=== PATIENT | male | born 1950 | race Caucasian/White ===

== ENCOUNTER 2017-09-16 19:34 | Emergency (ER) | payer MEDICARE, OTHER, SELFPAY ==
[2017-09-16 19:38] VITALS: BP 155/75; PULSE 67; RESP 18; TEMP 36.7; O2SAT 97; BMI 29.6
[2017-09-16] MEDS: 0.9% Normal Saline 1,000 ML 150 ML IV (20:36)
[2017-09-16] MEDS: Ondansetron 4 MG/2 ML Vial IV (20:36)
[2017-09-16] MEDS: HYDROmorphone 1 MG/ML Syringe IV (20:36)
[2017-09-16 20:42] LABS: Absolute Lymphocyte Count 1.83 X10^3/ul (0.83-4.51); Absolute Neutrophil Count 5.3 X10^3/uL (2.0-7.7); Basophil# 0.01 X10^3/uL; Basophil% 0.1 % (0-1); Eosinophil# 0.09 X10^3/uL; Eosinophils% 1.2 % (0-5); Hematocrit 38.8 % (40-54); Hemoglobin 12.9 g/dl (13.0-16.5); Lymphocyte # 1.83 X10^3/ul (4.0); Lymphocyte % 23.6 % (19-41); Mean Corp Hgb Conc 33.2 g/gl (32-36); Mean Corpuscular Hgb 30.1 pg (27.0-32.0); Mean Corpuscular Volume 90.7 fL (80-94); Mean Platelet Vol. 9.8 fl (6.2-12.0); Monocyte# 0.54 X10^3/uL; Neutrophil # 5.26 X10^3/uL (2.7-7.7); Neutrophil % 67.8 % (47-70); Platelet Count 299 K/mm3 (150-450); RBC Distribution Width CV 13.6 % (11.6-14.6); RBC Distribution Width SD 44.9 fl (35.1-43.9); Red Blood Count 4.28 M/mm3 (4.6-6.2); White Blood Count 7.8 K/mm3 (4.4-11.0)
[2017-09-16 20:45] LABS: POSITIVE COUNT NO; POSITIVE DIFFERENTIAL NO; POSITIVE MORPHOLOGY NO
[2017-09-16 20:55] LABS: Anion Gap 10 (5-15); BUN 17 mg/dL (7-18); BUN/Creat Ratio 18.4 RATIO (10-20); Calcium,Total 9.1 mg/dL (8.5-10.1); Chloride 104 mmol/L (98-107); Creatinine, Serum 0.92 mg/dL (0.70-1.30); EST Glomerular Filtration Rate 87 mL/min (>60); Est Glom Filt Rate - Afr Amer 105 mL/min (>60); Estimated Creatinine Clearance 76.41 ml/min; Glucose 106 mg/dL (74-106); Sodium Level 143 mmol/L (136-145)
--- NOTE | 2017-09-16 21:45 | ED.VISSUMM ---
- ER Visit Summary Date of Service: 09/16/17 Chief Complaint: [Bret herniation] History of Present Illness: The patient is a 67 M [presents to the emergency department with complaint of a fall onto his abdomen causing his stoma to herniate. Patient has had a history of colostomy related to diverticulitis and partial bowel resection. Patient has had problems in the past with the addition of stoma. Patient complains of abdominal pain. Patient denies any fever. He denies any cough.] Physical Examination: [HEENT-PERRLA, EOMI. Cranial nerves II through XII grossly intact. TMs clear. Mucous membranes moist. No adenopathy. Cardiovascular-regular rate and rhythm without murmur or ectopy Lungs-clear to auscultation, chest wall stable without crepitus or subcu emphysema Abdomen-normoactive bowel sounds, soft. Patient does have a colostomy in the lower abdomen with colon herniating centrally. Area slightly tender to palpation. No blood noted. There is stool within the colostomy bag. Extremities-intact ?4, normal range of motion, normal pulses, atraumatic] Test Results: [CBC with differential obtained showed a white blood cell count of 7.8, hemoglobin 12.9, hematocrit 39, platelets 299. Chemistries unremarkable. Emergency Department Course and Treatment: [Patient received a milligram of Dilaudid IV as well as 4 mg Zofran. I was able to reduce the herniated colon and patient had good pain relief. I ordered a CT scan of the abdomen to evaluate further however patient is refusing being that his symptoms are now resolved and is concerned about the financial implications of having a CAT scan. Patient is requesting to be discharged home and states that he will return if symptoms worsen.] Treatment Plan: [Discharged to home and advised to follow-up with the surgeon within next 3-5 days.] Disposition: [Discharged home in stable condition] Impression: [Colostomy prolapse/herniation-reduced] This note was generated with [employer] dictation software. It may contain incorrect words, spelling, and punctuation that were not noted in review of the chart prior to signing ED Disposition - Plan for ED Patient: Chief Complaint: Wound [facility] [[facility] -
--- NOTE | 2017-09-16 21:48 | ED.DEP ---
ED Disposition - Plan for ED Patient: Chief Complaint: Wound Instructions: ED Abdominal Pain Unkn Cause [facility]: [facility] [[facility]] - Additional Instructions: see your surgeon within the next 3-5 days, use your binder, return if worsening pain, prolapse, bloody stool, or condition worsens
[2017-09-16] MEDS: HYDROcodone Bitartrate/Apap 5/325 Tablet PO (22:03)
[2017-09-16 22:09] VITALS: BP 139/80; PULSE 62; RESP 18; O2SAT 96
== END 2017-09-16 22:11 | disposition home or self-care (01) ==
LOC: ED 20:11
PROVIDERS: Emergency Provider Emergency Medicine
DX: K94.09 Other complications of colostomy (principal); Y83.3 Surgical operation with formation of external stoma as the cause of abnormal reaction of the patient, or of later complication, without mention of misadventure at the time of the procedure; I25.10 Atherosclerotic heart disease of native coronary artery without angina pectoris; Z95.1 Presence of aortocoronary bypass graft; Z72.0 Tobacco use
CPT/HCPCS: 80048; 85025; 99285; J7030; J2405

== ENCOUNTER 2017-09-18 11:07 | Emergency (ER) | payer MEDICARE, OTHER, SELFPAY ==
[2017-09-18 11:08] VITALS: BP 141/68; PULSE 87; RESP 20; TEMP 37.2; O2SAT 98; BMI 29.5
[2017-09-18] MEDS: morphine 8 MG/ML Syringe IV (12:30)
[2017-09-18] MEDS: Ondansetron 4 MG/2 ML Vial IV (12:31)
[2017-09-18 13:47] VITALS: BP 143/58; PULSE 61; RESP 20; O2SAT 96
--- NOTE | 2017-09-18 15:01 | ED.DCSUM_ITS ---
- ER Visit Summary Date of Service: 09/18/17 Chief Complaint: Pain at abdominal ostomy site. History of Present Illness: The patient is a 67 M history of CAD, COPD, diverticular lordosis, appendectomy, partial colectomy with a right lower quadrant ostomy. Patient complaining of abdominal pain since this morning the ostomy site with the bowel protruding through the ostomy. Nausea but no vomiting. No other abdominal pain. His ostomy is still putting out gas and stool. No blood. Denies any fever. This is happened other times in the past. He was seen this past weekend for similar. He states he is going to have a revision ostomy site but he has to wait due to cardiac stents were placed in the last year. Physical Examination: Older male no acute distress. Vital signs are stable afebrile. He does not look septic toxic. H EENT exam unremarkable neck nontender lungs clear to auscultation bilaterally. Heart regular rate and rhythm no murmur. Abdomen soft nondistended normal bowel sounds. He is bowel prep shooting through his right lower quadrant ostomy. There is no blood. There is loose brown stool and gas in the ostomy bag. Mildly tender to site. There is no signs of bowel obstruction. No peritoneal signs. Moving all 4 extremities. Neurologically is awake and alert. Test Results: None Emergency Department Course and Treatment: Patient treated with IV morphine and Zofran. He was laid flat on his back. On repeat exam at 1455 his bowel that protruded through his ostomy is spontaneously reducing the area soft and no longer tender. His abdomen remains completely benign without any signs of obstruction. There is no distention. Soft. Nontender. He has bowel sounds. Treatment Plan: [facility] Disposition: dc Impression: Acute abdominal Pain Bowel Herniation through Right Lower Quadrant Ostomy that spontaneously resolved This note was generated with [employer] dictation software. It may contain incorrect words, spelling, and punctuation that were not noted in review of the chart prior to signing ED Disposition - Plan for ED Patient: Chief Complaint: Abd Pain [facility] [[facility] Provider] -
--- NOTE | 2017-09-18 15:01 | ED.DEP ---
ED Disposition - Plan for ED Patient: Disposition: Home or Assisted Living Chief Complaint: Abd Pain [facility]errals[facility] [Primary [facility] Provider] - As soon as possible Additional Instructions: [facility] If this re-0ccurs lay flat on your back until it resolves
[2017-09-18 15:08] VITALS: PULSE 71; O2SAT 96
== END 2017-09-18 15:09 | disposition home or self-care (01) ==
PROVIDERS: Emergency Provider Emergency Medicine
DX: K94.09 Other complications of colostomy (principal); Y83.8 Other surgical procedures as the cause of abnormal reaction of the patient, or of later complication, without mention of misadventure at the time of the procedure; R10.9 Unspecified abdominal pain; Z90.49 Acquired absence of other specified parts of digestive tract; I25.10 Atherosclerotic heart disease of native coronary artery without angina pectoris; J44.9 Chronic obstructive pulmonary disease, unspecified; I25.2 Old myocardial infarction; Z72.0 Tobacco use
CPT/HCPCS: 96374; 96375; 99283; A4216; J2405

== ENCOUNTER 2017-09-19 18:24 | Emergency (ER) | payer MEDICARE, SELFPAY ==
[2017-09-19 18:25] VITALS: BP 148/63; PULSE 70; RESP 18; TEMP 37.1; O2SAT 98; BMI 29.0
--- NOTE | 2017-09-19 18:30 | ED.RN ---
PT REPORTS STOMA SWELLING THAT STARTED A COUPLE HOURS AGO. THEN IN TRIAGE PT REPORTS SOB AND CHEST PAIN. 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
--- NOTE | 2017-09-19 18:56 | EKG12_ITS ---
Test Reason : CHEST PAIN Blood Pressure : / mmHG Vent. Rate : 072 BPM Atrial Rate : 072 BPM P-R Int : 190 ms QRS Dur : 104 ms QT Int : 400 ms P-R-T Axes : 059 049 092 degrees QTc Int : 438 ms Normal sinus rhythm Nonspecific T wave abnormality Abnormal ECG Confirmed by LAUREEN METCALF, KASSANDRA ([id number]), market editor DAPHNEY DAVISON ([id number] on 09/21/2017 10:55:21 AM Referred By: NAZIA Confirmed By:KASSANDRA GARDUNO MD
--- NOTE | 2017-09-19 18:56 | RAD_ITS ---
STUDY: X-RAY CHEST REASON FOR EXAM: Male, 67 years old. Short of breath TECHNIQUE: AP portable COMPARISON: May 03, 2017 FINDINGS: There is mild hyperinflation and prominent interstitial thickening at the lung bases. There is no demonstrated pleural abnormality. Heart is upper normal size.. Normal mediastinum and irene. Normal visualized pulmonary arteries. Normal visualized aortic arch and descending thoracic aorta. Pacer noted on the left with electrodes in satisfactory position Normal visualized thoracic spine. Normal visualized ribs, clavicles, and shoulders. Postop change status post median sternotomy and CABG. 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 RAD/Chest 1 View (Portable) IMPRESSION: Postsurgical change. Mild COPD No acute cardiopulmonary pathology Electronically Signed: Chele Mccullough MD at 19:27 EDT , Service support ,
--- NOTE | 2017-09-19 18:56 | CT_ITS ---
STUDY: CT BRAIN WITHOUT CONTRAST REASON FOR EXAM: Male, 67 years old. Headache RADIATION DOSAGE (If Supplied By Facility): CTDIvol = ( 44.99 ) mGy, DLP = ( 796.11 ) mGycm TECHNIQUE: Transaxial CT imaging of the brain was performed without administration of intravenous contrast material. Individualized dose optimization techniques were used for this CT. COMPARISON: None. FINDINGS: Normal soft tissue structures. Normal calvarium. Normal size ventricles and extra-axial spaces for the patient's age. Moderate periventricular white matter ischemic changes more pronounced in the parieto-occipital regions.. Normal basal ganglia and thalami. Normal brainstem. Normal cerebellum. There is no intracranial hemorrhage. There are no findings of an acute ischemic infarction. There is mild mucosal thickening of left maxillary and bilateral ethmoid sinuses. Bilateral scleral calcification is seen within the orbits CT/Brain/Head without Contrast IMPRESSION: Moderate periventricular white matter ischemic changes most pronounced in the parieto-occipital regions. Cannot exclude the possibility of PRES under appropriate clinical circumstances No mass or acute bleed Electronically Signed: Chele Mccullough MD at 20:31 EDT , Service support ,
--- NOTE | 2017-09-19 18:57 | CT_ITS ---
STUDY: CT ABDOMEN AND PELVIS WITH CONTRAST REASON FOR EXAM: Male, 67 years old. Stomal hernia pain RADIATION DOSAGE (If Supplied By Facility): CTDIvol = ( 17.20 ) mGy, DLP = ( 1031.69 ) mGycm TECHNIQUE: Transaxial images were obtained from the dome of the diaphragm to the symphysis pubis without oral contrast. 100 ml of Isovue 300 contrast was administered. Sagittal and coronal images were reconstructed. Individualized dose optimization techniques were used for this CT. COMPARISON: December 20, 2016 FINDINGS: There is mild interstitial thickening in the left lower lobe. There is a tiny calcified granuloma at left base.. The visualized portions of the heart are within normal limits. Liver is fatty infiltrated without mass or bile duct dilatation. Normal gallbladder and extrahepatic biliary system. Normal spleen. Normal pancreas. There is diffuse thickening of the left adrenal consistent with hyperplasia. The right adrenal is normal. No evidence for renal obstruction or ureteral calculus. There is a simple cyst in left kidney. Dilatation of the stomach and proximal to mid small bowel.. Diffuse diverticular disease of the descending and sigmoid colon without evidence for acute diverticulitis. Appendix not visualized which may be consistent with prior appendectomy. There are postsurgical changes status post stoma in the right lower quadrant with peristomal hernia containing both large and small bowel. The efferent loop of small bowel is smaller caliber and possibility of partial small bowel obstruction cannot be entirely excluded Multilobulated infrarenal aortic aneurysm maximum dimension of approximately 2.95 x 3.15 cm Normal inferior vena cava. Normal retroperitoneum. Nonspecific enlargement of the prostate impinging upon the base of the bladder which is mildly diffusely thick-walled Normal abdominal wall. Lumbar spine demonstrates advanced spondylosis. CT/Abdomen/Pelvis WITH Contrast IMPRESSION: There is diffuse distention of the stomach and proximal to mid small bowel proximal to a stoma in the right lower quadrant containing both large and small bowel. The efferent loop of small bowel from the hernia is smaller caliber and partial small bowel obstruction cannot be entirely excluded.. There is no definitive evidence for incarceration. Recommend clinical correlation and follow-up Multiple other findings as above Electronically Signed: Chele Mccullough MD at 22:20 EDT , Service support ,
[2017-09-19] MEDS: 0.9% Normal Saline 1,000 ML 150 ML IV (19:14)
[2017-09-19] MEDS: Morphine 4 MG/ML Syringe IV ×3 (19:14→23:36)
[2017-09-19] MEDS: Ondansetron 4 MG/2 ML Vial IV ×2 (19:14→23:36)
[2017-09-19] MEDS: Aspirin 81 MG TAB.CHEW 324 MG PO (19:14)
[2017-09-19 19:50] LABS: Absolute Lymphocyte Count 1.79 X10^3/ul (0.83-4.51); Absolute Neutrophil Count 6.1 X10^3/uL (2.0-7.7); Basophil# 0.01 X10^3/uL; Basophil% 0.1 % (0-1); Eosinophil# 0.06 X10^3/uL; Eosinophils% 0.7 % (0-5); Hematocrit 38.9 % (40-54); Hemoglobin 13.1 g/dl (13.0-16.5); Lymphocyte # 1.79 X10^3/ul (4.0); Lymphocyte % 20.7 % (19-41); Mean Corp Hgb Conc 33.7 g/gl (32-36); Mean Corpuscular Hgb 30.3 pg (27.0-32.0); Mean Corpuscular Volume 89.8 fL (80-94); Mean Platelet Vol. 9.8 fl (6.2-12.0); Monocyte# 0.65 X10^3/uL; Monocyte% 7.5 % (0-10); Neutrophil # 6.12 X10^3/uL (2.7-7.7); Neutrophil % 70.9 % (47-70); POSITIVE COUNT NO; POSITIVE DIFFERENTIAL NO; POSITIVE MORPHOLOGY NO; Platelet Count 323 K/mm3 (150-450); RBC Distribution Width CV 13.4 % (11.6-14.6); Red Blood Count 4.33 M/mm3 (4.6-6.2); White Blood Count 8.6 K/mm3 (4.4-11.0)
[2017-09-19 19:52] VITALS: BP 166/71; PULSE 67; RESP 15; O2SAT 97
[2017-09-19 20:16] LABS: Anion Gap 5 (5-15); BUN 16 mg/dL (7-18); BUN/Creat Ratio 14.5 RATIO (10-20); Calcium,Total 9.1 mg/dL (8.5-10.1); Chloride 107 mmol/L (98-107); EST Glomerular Filtration Rate 71 mL/min (>60); Est Glom Filt Rate - Afr Amer 86 mL/min (>60); Estimated Creatinine Clearance 63.91 ml/min; Glucose 100 mg/dL (74-106); Sodium Level 141 mmol/L (136-145)
[2017-09-19 20:20] LABS: Lactic Acid 1.3 mmol/L (0.4-2.0)
[2017-09-19 20:24] VITALS: BP 182/71; PULSE 60; RESP 19; O2SAT 97
[2017-09-19 22:13] VITALS: BP 146/79; PULSE 71; RESP 18; O2SAT 98
[2017-09-19 23:05] VITALS: BP 124/96; PULSE 99; RESP 25; O2SAT 98
[2017-09-19 23:38] VITALS: BP 169/75; PULSE 62; RESP 18; O2SAT 96
--- NOTE | 2017-09-20 00:05 | ED.VISSUMM ---
- ER Visit Summary Date of Service: 09/20/17 Chief Complaint: Abdominal pain and chest pain History of Present Illness: The patient is a 67 M who goes to the [facility]. Patient reports that he has a history of a colostomy at [facility] 1 year ago for diverticulitis. 3 days ago he fell and had prolapsed through his hernia. He was seen in the emergency department and this resolved. He refused a CT at that time. Patient reports that yesterday the hernia prolapsed again. He was seen in emergency department and this reduced spontaneously and he went home. States today that the hernia is prolapsed again and this time he is unable to reduce it. He states he has pain that is an aching pain/10 severity. He has been nauseated and vomited one time. No blood in his emesis. She also complains of chest pain began approximately 2 hours ago while he was at rest. Is a substernal tightness. Is 7 out of 10 at worst and 510 currently. Is worsened by exertion relieved by remaining still. He reports that he has been short of breath and clammy with this. States that this is similar to when he has had problems with his heart in the past. His last heart catheterization was in October 2016 at [facility] and he got a stent. Physical Examination: Vitals: Stable. Afebrile. General: Well-nourished and well-developed. Head: Normocephalic atraumatic. Neck: Supple, no lymphadenopathy. No JVD. Nontender. Cardiovascular: Regular rate and rhythm. No murmurs. Respiratory: No respiratory distress. Clear to auscultation bilaterally. Abdominal: Soft, moderate tenderness in the right lower quadrant with herniated bowel through his stoma, nondistended, normal bowel sounds. No guarding, rebound, or peritoneal signs. Back: Nontender. Extremities: Nontender, 1+ pitting edema lower extremities bilaterally. Skin: Normal color, no rash. Neurologic: Alert and oriented ?3. Cranial nerves II through XII are intact. Normal strength and sensation. Psych: Normal affect. Test Results: EKG is sinus at 72 with inferolateral T-wave inversions. Is unchanged from April of this year. Troponins negative. Chem-7 is normal. CBC is more for hematocrit 30.978 for 71. Lactic acid is 1.3. Chest x-ray shows chronic changes. Clinical Impression(s) from Imaging Studies Brain CT 09/19/17 18:56 IMPRESSION: Moderate periventricular white matter ischemic changes most pronounced in the parieto-occipital regions. Cannot exclude the possibility of PRES under appropriate clinical circumstances No mass or acute bleed Electronically Signed: Chele Mccullough MD at 20:31 EDT , Service support , Chest X-Ray 09/19/17 18:56 IMPRESSION: Postsurgical change. Mild COPD No acute cardiopulmonary pathology Electronically Signed: Chele Mccullough MD at 19:27 EDT , Service support , Abdomen/Pelvis CT 09/19/17 18:57 IMPRESSION: There is diffuse distention of the stomach and proximal to mid small bowel proximal to a stoma in the right lower quadrant containing both large and small bowel. The efferent loop of small bowel from the hernia is smaller caliber and partial small bowel obstruction cannot be entirely excluded.. There is no definitive evidence for incarceration. Recommend clinical correlation and follow-up Multiple other findings as above Electronically Signed: Chele Mccullough MD at 22:20 EDT , Service support , Emergency Department Course and Treatment: Patient was given aspirin p.o. Is given morphine and Zofran IV. He is resting comfortably. Treatment Plan: Patient was discussed with Dr. North. Given the fact the patient has chest pain he asked the patient be transferred to a tertiary care center. He was discussed with [facility] and will be transferred there for further evaluation and treatment. Disposition: Transferred in stable condition. Impression: 1. Stomal prolapse. 2. Partial small bowel obstruction. 3. Chest pain. 4. History of coronary artery disease. This note was generated with [employer] software. It may contain incorrect words, spelling, and punctuation that were not noted in review of the chart prior to signing ED Disposition - Plan for ED Patient: Chief Complaint: Chest Pain [facility] [[facility]] -
--- NOTE | 2017-09-20 00:19 | ED.DCSUM_ITS ---
- ER Visit Summary Date of Service: 09/20/17 Chief Complaint: Abdominal pain and chest pain History of Present Illness: The patient is a 67 M who goes to the [facility]. Patient reports that he has a history of a colostomy at [facility] 1 year ago for diverticulitis. 3 days ago he fell and had prolapsed through his hernia. He was seen in the emergency department and this resolved. He refused a CT at that time. Patient reports that yesterday the hernia prolapsed again. He was seen in emergency department and this reduced spontaneously and he went home. States today that the hernia is prolapsed again and this time he is unable to reduce it. He states he has pain that is an aching pain/10 severity. He has been nauseated and vomited one time. No blood in his emesis. She also complains of chest pain began approximately 2 hours ago while he was at rest. Is a substernal tightness. Is 7 out of 10 at worst and 510 currently. Is worsened by exertion relieved by remaining still. He reports that he has been short of breath and clammy with this. States that this is similar to when he has had problems with his heart in the past. His last heart catheterization was in October 2016 at [facility] and he got a stent. Physical Examination: Vitals: Stable. Afebrile. General: Well-nourished and well-developed. Head: Normocephalic atraumatic. Neck: Supple, no lymphadenopathy. No JVD. Nontender. Cardiovascular: Regular rate and rhythm. No murmurs. Respiratory: No respiratory distress. Clear to auscultation bilaterally. Abdominal: Soft, moderate tenderness in the right lower quadrant with herniated bowel through his stoma, nondistended, normal bowel sounds. No guarding, rebound, or peritoneal signs. Back: Nontender. Extremities: Nontender, 1+ pitting edema lower extremities bilaterally. Skin: Normal color, no rash. Neurologic: Alert and oriented ?3. Cranial nerves II through XII are intact. Normal strength and sensation. Psych: Normal affect. Test Results: EKG is sinus at 72 with inferolateral T-wave inversions. Is unchanged from April of this year. Troponins negative. Chem-7 is normal. CBC is more for hematocrit 30.978 for 71. Lactic acid is 1.3. Chest x-ray shows chronic changes. Clinical Impression(s) from Imaging Studies Brain CT 09/19/17 18:56 IMPRESSION: Moderate periventricular white matter ischemic changes most pronounced in the parieto-occipital regions. Cannot exclude the possibility of PRES under appropriate clinical circumstances No mass or acute bleed Electronically Signed: Chele Mccullough MD at 20:31 EDT , Service support , Chest X-Ray 09/19/17 18:56 IMPRESSION: Postsurgical change. Mild COPD No acute cardiopulmonary pathology Electronically Signed: Chele Mccullough MD at 19:27 EDT , Service support , Abdomen/Pelvis CT 09/19/17 18:57 IMPRESSION: There is diffuse distention of the stomach and proximal to mid small bowel proximal to a stoma in the right lower quadrant containing both large and small bowel. The efferent loop of small bowel from the hernia is smaller caliber and partial small bowel obstruction cannot be entirely excluded.. There is no definitive evidence for incarceration. Recommend clinical correlation and follow-up Multiple other findings as above Electronically Signed: Chele Mccullough MD at 22:20 EDT , Service support , Emergency Department Course and Treatment: Patient was given aspirin p.o. Is given morphine and Zofran IV. He is resting comfortably. Treatment Plan: Patient was discussed with Dr. North. Given the fact the patient has chest pain he asked the patient be transferred to a tertiary care center. He was discussed with [facility] and will be transferred there for further evaluation and treatment. Disposition: Transferred in stable condition. Impression: 1. Stomal prolapse. 2. Partial small bowel obstruction. 3. Chest pain. 4. History of coronary artery disease. This note was generated with [employer] software. It may contain incorrect words, spelling, and punctuation that were not noted in review of the chart prior to signing ED Disposition - Plan for ED Patient: Chief Complaint: Chest Pain [facility] [[facility] Provider] -
[2017-09-20 01:05] VITALS: BP 159/71; PULSE 60; RESP 16; O2SAT 96
[2017-09-20 01:50] VITALS: BP 163/66; PULSE 60; RESP 18; TEMP 36.7; O2SAT 96
[2017-09-20] MEDS: Morphine 4 MG/ML Syringe IV (02:10)
[2017-09-20 02:11] VITALS: PULSE 62; RESP 19; O2SAT 98
[2017-09-20] MEDS: 0.9% Normal Saline 1,000 ML 150 ML IV (02:12)
== END 2017-09-20 02:25 | disposition short-term general hospital (02) ==
PROVIDERS: Emergency Provider Emergency Medicine
DX: K56.600 Partial intestinal obstruction, unspecified as to cause (principal); R07.9 Chest pain, unspecified; I25.10 Atherosclerotic heart disease of native coronary artery without angina pectoris; I10 Essential (primary) hypertension; E78.00 Pure hypercholesterolemia, unspecified; I25.2 Old myocardial infarction; F17.200 Nicotine dependence, unspecified, uncomplicated; Z93.3 Colostomy status
CPT/HCPCS: 70450; 71045; 74177; 80048; 83605; 84484; 85025; 93005; 96361; 96374; 96375; 96376; 99284; J7030; Q9967; A4216; J2405

== ENCOUNTER 2017-10-02 13:25 | Emergency (ER) | payer MEDICARE, SELFPAY ==
--- NOTE | 2017-10-02 13:25 | DT_ITS ---
This patient was seen during an EMR downtime October 01, 2017 - October 08, 2017. This patient may have a combination of paper and electronic documentation or all paper documentation. All documentation is viewable within the e-chart portion of [email or web address] for each patient visit.
== END 2017-10-02 15:37 | disposition home or self-care (01) ==
LOC: ED 10-04 07:02
PROVIDERS: Emergency Provider Emergency Medicine
DX: K94.09 Other complications of colostomy (principal); I25.10 Atherosclerotic heart disease of native coronary artery without angina pectoris; I25.2 Old myocardial infarction; I11.0 Hypertensive heart disease with heart failure; I50.9 Heart failure, unspecified; E78.00 Pure hypercholesterolemia, unspecified; Z95.1 Presence of aortocoronary bypass graft; J44.9 Chronic obstructive pulmonary disease, unspecified; F41.9 Anxiety disorder, unspecified; Z72.0 Tobacco use
CPT/HCPCS: 96372; 99284; J7030; A4216

== ENCOUNTER 2017-10-20 09:56 | Emergency (ER) | payer MEDICARE, SELFPAY ==
[2017-10-20 09:58] VITALS: BP 186/86; PULSE 88; RESP 20; TEMP 36.8; O2SAT 95; BMI 29.8
--- NOTE | 2017-10-20 10:23 | RAD_ITS ---
STUDY: X-RAY - ABDOMEN/PELVIS REASON FOR EXAM: Male, 67 years old. Abdominal pain. Stoma keeps popping out of colostomy. TECHNIQUE: AP supine view. COMPARISON: None. FINDINGS: Normal visualized lung bases. There is an unremarkable bowel gas pattern. There is no demonstrated free abdominal air. The visualized liver, spleen and kidneys are grossly normal in size and morphology. Normal soft tissue structures. Degenerative disc space narrowing at L2-L3, L3-L4, L4-L5 and L5-S1 disc space levels. No acute osseous abnormality. RAD/Abdomen Single View (Portable) IMPRESSION: No acute abnormality in the abdomen and pelvis. Electronically Signed: Jordan Rob MD at 12:36 EDT , Service support ,
--- NOTE | 2017-10-20 10:49 | ED.DCSUM_ITS ---
- ER Visit Summary Date of Service: 10/20/17 Chief Complaint: Abdominal pain History of Present Illness: The patient is a 67 M 3 of partial colectomy with colostomy due to diverticulitis. He also has a history of prior MIs with cardiac stents and a pacemaker. Patient has a known hernia of his colostomy. At times it bulges out causing him pain. This is 1 of those episodes. He has been seen here multiple times before for similar events. He has not nausea but denies any vomiting. Physical Examination: Older male no acute distress vital signs are stable afebrile. H EENT exam is unremarkable. Neck nontender. Lungs clear to auscultation heart regular rate and rhythm no murmur. Abdomen soft he has a hernia at the colostomy site on the right lower quadrant. There is stool and gas in his colostomy bag. There is no blood. He does have bowel sounds. He does not have peritoneal signs. He is moving all 4 extremities. They are neurovascularly intact. Neurologically is awake and alert without focal motor deficits. Test Results: KUB shows nonspecific bowel gas pattern. No signs of obstruction. Read both by myself the radiologist. Emergency Department Course and Treatment: Treated with pain and nausea medications lying supine and usually this hernia will reduce spontaneously. He will be reassessed. Treatment Plan: Patient is doing well on repeat exam at 1345. Abdomen is benign. Hernia is spontaneously reduced. He has stool and gas in his colostomy bag in his abdomen otherwise nontender nondistended. Disposition: Discharge Impression: Acute abdominal pain secondary to hernia at colostomy site This note was generated with [employer] dictation software. It may contain incorrect words, spelling, and punctuation that were not noted in review of the chart prior to signing ED Disposition - Plan for ED Patient: Chief Complaint: Abd Pain [facility] [Primary [facility] Provider] -
[2017-10-20] MEDS: Ondansetron ODT 4 MG Tablet PO (11:29)
[2017-10-20] MEDS: HYDROmorphone 1 MG/ML Syringe IM (11:30)
[2017-10-20 12:54] VITALS: BP 157/77; PULSE 82; RESP 18; O2SAT 92
--- NOTE | 2017-10-20 13:57 | ED.DEP ---
ED Disposition - Plan for ED Patient: Disposition: Home or Assisted Living Chief Complaint: Abd Pain [facility]errals: [facility] [Primary Care Provider] - 1-2 Days if not improving Additional Instructions: [facility] Return to the ER if increasing pain, vomiting or distended abdomen. At this time he had no signs of bowel obstruction. If the hernia recurs which is very well could lay flat and place ice over the area. It should spontaneously resolve.
== END 2017-10-20 14:00 | disposition home or self-care (01) ==
PROVIDERS: Emergency Provider Emergency Medicine
DX: K43.5 Parastomal hernia without obstruction or gangrene (principal); I25.10 Atherosclerotic heart disease of native coronary artery without angina pectoris; I25.2 Old myocardial infarction; J44.9 Chronic obstructive pulmonary disease, unspecified; Z72.0 Tobacco use; Z95.1 Presence of aortocoronary bypass graft; Z95.0 Presence of cardiac pacemaker; Z90.49 Acquired absence of other specified parts of digestive tract
CPT/HCPCS: 74018; 99282; A4216; J2405

== ENCOUNTER 2017-11-01 12:57 | Emergency (ER) | payer MEDICARE, SELFPAY ==
[2017-11-01 12:58] VITALS: BP 159/69; PULSE 76; RESP 16; TEMP 36.9; O2SAT 98; BMI 29.6
[2017-11-01] MEDS: 0.9% Normal Saline 1,000 ML 150 ML IV (15:50)
[2017-11-01] MEDS: Morphine 4 MG/ML Syringe IV ×2 (15:50→16:50)
[2017-11-01] MEDS: Ondansetron 4 MG/2 ML Vial IV (15:50)
[2017-11-01 15:55] LABS: Absolute Neutrophil Count 6.5 X10^3/uL (2.0-7.7); Basophil# 0.03 X10^3/uL; Basophil% 0.3 % (0-1); Eosinophil# 0.22 X10^3/uL; Eosinophils% 2.5 % (0-5); Hematocrit 42.9 % (40-54); Hemoglobin 14.7 g/dl (13.0-16.5); Lymphocyte % 16.8 % (19-41); Mean Corp Hgb Conc 34.3 g/gl (32-36); Mean Corpuscular Hgb 30.8 pg (27.0-32.0); Mean Corpuscular Volume 89.7 fL (80-94); Mean Platelet Vol. 9.9 fl (6.2-12.0); Monocyte# 0.62 X10^3/uL; Monocyte% 6.9 % (0-10); Neutrophil # 6.54 X10^3/uL (2.7-7.7); Neutrophil % 73.3 % (47-70); Platelet Count 331 K/mm3 (150-450); RBC Distribution Width CV 15.1 % (11.6-14.6); RBC Distribution Width SD 49.7 fl (35.1-43.9); Red Blood Count 4.78 M/mm3 (4.6-6.2); White Blood Count 8.9 K/mm3 (4.4-11.0)
[2017-11-01 15:59] LABS: POSITIVE COUNT NO; POSITIVE DIFFERENTIAL NO; POSITIVE MORPHOLOGY NO
[2017-11-01 16:27] LABS: Anion Gap 6 (5-15); BUN 16 mg/dL (7-18); Calcium,Total 9.5 mg/dL (8.5-10.1); Chloride 104 mmol/L (98-107); Creatinine, Serum 1.07 mg/dL (0.70-1.30); EST Glomerular Filtration Rate 73 mL/min (>60); Est Glom Filt Rate - Afr Amer 89 mL/min (>60); Glucose 103 mg/dL (74-106); Potassium 3.9 mmol/L (3.5-5.1); Sodium Level 138 mmol/L (136-145)
--- NOTE | 2017-11-01 16:28 | ED.VISSUMM ---
- ER Visit Summary Date of Service: 11/01/17 Chief Complaint: Prolapse of colostomy History of Present Illness: The patient is a 67 M who goes to the [facility]. He reports he had a colostomy placed approximately 1 year ago at [facility] for diverticulitis. He does not remember the name of the surgeon. Reports at 1130 this morning the colostomy prolapsed into the bag. He states that he has an aching, stabbing pain is 1010 worsening a 10 currently. Is worsened by nothing relieved by nothing. Is been nausea and vomited once. No blood in his emesis. His colostomy is draining normally. There is been no blood in this. No dysuria or frequency. Physical Examination: Vitals: Stable. Afebrile. General: Well-nourished and well-developed. Head: Normocephalic atraumatic. Neck: Supple, no lymphadenopathy. No JVD. Nontender. Cardiovascular: Regular rate and rhythm. No murmurs. Respiratory: No respiratory distress. Clear to auscultation bilaterally. Abdominal: Soft, moderate tenderness palpation surrounding the right lower quadrant, nondistended, normal bowel sounds. A significant amount of prolapse into the colostomy bag without blood. No guarding, rebound, or peritoneal signs. Back: Nontender. Extremities: Nontender, no edema. Skin: Normal color, no rash. Neurologic: Alert and oriented ?3. Cranial nerves II through XII are intact. Normal strength and sensation. Psych: Normal affect. Test Results: CBC is remarkable for segment neutrophils of 73 and lymphocytes 17. Chem-7 is normal. Lactic acid is 1.4. Emergency Department Course and Treatment: Patient had an IV placed. Is given morphine and Zofran IV. He had sugar placed on the prolapsed bowel. Treatment Plan: Patient was discussed with Dr. Redd. She saw the patient in the emergency department and was able to reduce the prolapse and place a new colostomy bag. Patient will be discharged instructions to follow-up with his surgeon as soon as possible. Return to the emergency department for any worsening symptoms. Disposition: To home in improved and stable condition. Impression: 1. Colostomy prolapse. This note was generated with [employer] software. It may contain incorrect words, spelling, and punctuation that were not noted in review of the chart prior to signing ED Disposition - Plan for ED Patient: Chief Complaint: General Illness Instructions: Discharge Instructions for Colostomy Prescriptions: Hydrocodone Bitart/Apap 5-325 [Ethel 5MG-325MG] 1 tablet PO Q6H PRN PRN 3 Days #10 tablet PRN Reason: Pain Additional Instructions: Follow-up with your surgeon as soon as possible.
[2017-11-01 16:29] LABS: Lactic Acid 1.4 mmol/L (0.4-2.0)
[2017-11-01 16:50] VITALS: BP 154/87; PULSE 89; RESP 16
--- NOTE | 2017-11-01 19:48 | PCM.CONS.B ---
- Consult Date of Consult: 11/01/17 - Reason for Consult Chief Complaint: colostomy prolapse History of Present Illness: 67 y/o WM presents with colostomy prolapse. This has happened multiple time in past, patient has presented to ED for this, at multiple locations. Had transverse loop colostomy on 07/25/16, there is report of a Cabrera's procedure July 2016 for perforated diverticulitis but there is no documentation for this. Patient has been given multiple opportunities for follow up with a surgeon for takedown colostomy, but patient has been noncompliant with his follow up appointments. Difficulties in contacting patient are also noted. He has known parastomal hernia. He denies fevers. Denies noting gross blood in stools. He is known to have chronic abdominal pain and has this complaint documented in multiple patient encounters. 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 hypertension COPD obstructive sleep apnea GERD bipolar disorder, history of suicidal ideation - admission in past at [facility] AAA - 3.1 cm medical noncompliance Past Surgical History: appendectomy Transverse loop colostomy 07/25/16, [facility], [place] CABG PPM implantation CAD stent placement Medications: tamsulosin ER (FLOMAX) 0.4 mg cp24 ondansetron (ZOFRAN) 4 mg tablet oxyCODONE-acetaminophen (PERCOCET) 10-325 mg tablet vitamin B complex (B COMPLEX ORAL) aspirin, enteric coated (ASPIRIN, ENTERIC COATED) 81 mg EC tablet cyclobenzaprine (FLEXERIL) 10 mg tablet amLODIPine (NORVASC) 10 mg tablet loratadine 10 mg cap pravastatin (PRAVACHOL) 40 mg tablet gabapentin (NEURONTIN) 300 mg capsule metoprolol succinate ER (TOPROL XL) 100 mg Tb24 QUEtiapine (SEROQUEL) 200 mg tablet MULTIVIT WITH IRON,MINERALS (MULTIVITAMIN AND MINERALS ORAL) albuterol HFA (PROVENTIL HFA, VENTOLIN HFA) 90 mcg/actuation inhaler fluticasone (FLONASE) 50 mcg/actuation nasal spray nitroglycerin sublingual (NITROSTAT) 0.4 mg SL tablet losartan (COZAAR) 100 mg tablet furosemide (LASIX) 20 mg tablet Allergies: altaseptic brilinta crestor hctz moxifloxacin ramipril simvastatin voltaren Social history: TOB use 1ppd for >40y Review of Systems: General - denies fevers Cardiovascular has known CAD s/p CABG, s/p stent placement Pulmonary has shortness of breath with exertion, denies coughing up blood Gastrointestinal as per HPI, denies blood in stools Neurological denies seizures Genitourinary has history of intermittent urinary hesitency, denies blood in urine Hematological denies spontaneous/prolonged bleeding Skin denies open nonhealing wounds Musculoskeletal has chronic back pain taking gabapentin for this Endocrine denies diabetes Psychological denies hallucinations, history of suicidal attempts Physical examination: Vital signs Temp 98.5F BP 159/69 General WD/WN WM in no apparent distress, alert and oriented, not septic appearing HEENT Normocephalic. EOM intact with sclera clear and no icterus noted. Neck is supple with no jugular venous distention noted. Trachea is midline. Lungs no labored breathing noted, such as retractions. No cough heard. Heart regular rate Abdomen soft and benign. but with colostomy prolapse and parastomal hernia, no gangrene of mucosa noted Extremities no calf tenderness noted. Genitourinary/Rectal deferred Skin normal skin integrity. Neurological no focal deficits noted Psychological normal affect, patient is calm and appropriate Impression: colostomy prolapse - painful, chronic known parastomal hernia Discussion/Plan: I have discussed the above with the patient. Sugar applied to area. Colostomy was then gently reduced in the ED. This took some time as gentle pressure had to be applied. Prolapse ostomy cap was then placed, by creating smaller opening of ostomy appliance and then placed over ostomy site. Patient tolerated procedure well. Patient to follow up with his primary physician Time spent - face to face with patient to perform above services - 40 minutes.
== END 2017-11-01 18:00 | disposition home or self-care (01) ==
PROVIDERS: Emergency Provider Emergency Medicine
DX: K63.4 Enteroptosis (principal); Z91.19 Patient's noncompliance with other medical treatment and regimen; K43.5 Parastomal hernia without obstruction or gangrene; G89.29 Other chronic pain; R10.9 Unspecified abdominal pain; I25.10 Atherosclerotic heart disease of native coronary artery without angina pectoris; Z95.1 Presence of aortocoronary bypass graft; G47.33 Obstructive sleep apnea (adult) (pediatric); K21.9 Gastro-esophageal reflux disease without esophagitis; J44.9 Chronic obstructive pulmonary disease, unspecified; I10 Essential (primary) hypertension; M54.9 Dorsalgia, unspecified
CPT/HCPCS: 80048; 83605; 85025; 99285; J7030; J2405

== ENCOUNTER 2017-11-02 04:48 | Emergency (ER) | payer MEDICARE, SELFPAY ==
[2017-11-02 04:49] VITALS: PULSE 75; RESP 18; TEMP 36.6; O2SAT 98; BMI 29.6
--- NOTE | 2017-11-02 05:28 | ED.RN ---
Colostomy pouch changed using pt's own supplies and per his instruction. Stoma pink, oval at 2.5 x 3. Peristomal skin reddened, without open areas. Skin prep applied to peristomal skin after cleansing. Pouched with 2 piece cut to fit and moldable ring.
--- NOTE | 2017-11-02 05:39 | ED.VISSUMM ---
- ER Visit Summary Date of Service: 11/02/17 Chief Complaint: Colostomy bag complication History of Present Illness: The patient is a 67 M with colostomy who presents after his bag fell off. Patient normally has home health help him with it, however yesterday home health was not there to replace the back for him. He had it done at the hospital, and tonight the bag fell off while he was asleep. He rolled over and found that had fallen off. Patient presents for replacement of the bag. He complains of some pain at the colostomy site but denies any other complaints. Patient states he has been having some prolapse of his colostomy site on and off for the last 6 months. There is a plan to reverse his colostomy next month. He states his physicians are aware of the intermittent prolapse. Physical Examination: Patient is awake and alert, well-appearing. Clothing and bed have ostomy contents spilled on them. Patient has partial prolapse of intestines through the colostomy site. Mild tenderness but no induration, exudate or swelling around the colostomy site. New bag in place with brown liquid contents. Remainder of exam unremarkable. Test Results: [] Emergency Department Course and Treatment: Patient presents for replacement of his colostomy bag after the current bag fell off during the night. Bag was easily replaced. Discussed with patient the appearance that there is some prolapse of his intestine through the colostomy site, and he states that this is an ongoing issue and it will increase and decrease in size throughout the day. His doctors are aware of it and they intend to reverse it next month. Patient had no other concerns other than having the bag replaced. He did request a Percocet for pain. He was discharged home with a ride. Treatment Plan: [] Disposition: [] Impression: Colostomy bag replacement This note was generated with [employer] dictation software. It may contain incorrect words, spelling, and punctuation that were not noted in review of the chart prior to signing ED Disposition - Plan for ED Patient: Chief Complaint: Other, Pain/Inj [facility] [[facility] Provider] -
--- NOTE | 2017-11-02 05:42 | ED.DEP ---
ED Disposition - Plan for ED Patient: Disposition: Home or Assisted Living Chief Complaint: Other, Pain/Inj Instructions: Discharge Instructions for Colostomy [facility]errals[facility] [Primary Care Provider] - As Needed
[2017-11-02] MEDS: Acetaminophen 325 MG Tablet PO (05:44)
[2017-11-02] MEDS: oxyCODONE 5 MG Tablet PO (05:44)
[2017-11-02 05:47] VITALS: BP 130/80; PULSE 75; RESP 16; O2SAT 98
== END 2017-11-02 05:48 | disposition home or self-care (01) ==
PROVIDERS: Emergency Provider Emergency Medicine
DX: Z43.3 Encounter for attention to colostomy (principal); K63.4 Enteroptosis
CPT/HCPCS: 99283

== ENCOUNTER 2017-11-05 08:27 | Emergency (ER) | payer MEDICARE, SELFPAY ==
[2017-11-05 08:28] VITALS: BP 158/75; PULSE 77; RESP 20; TEMP 36.6; O2SAT 96; BMI 29.0
--- NOTE | 2017-11-05 08:58 | ED.DCSUM_ITS ---
- ER Visit Summary Date of Service: 11/05/17 Chief Complaint: Abdominal pain History of Present Illness: The patient is a 67 M who presents with right lower abdominal pain that began this morning. Patient states that his colostomy is enlarged this morning. Patient states this has happened in the past and he was diagnosed with a prolapse of his colostomy. Patient states they have used sugar in the past but that generally does not help. Patient admits to some nausea but denies any vomiting. Patient does admit to some feeling of his heart racing but thinks that is related to the pain. Patient denies any diarrhea or constipation. Patient denies any urinary complaints. Physical Examination: Vital signs are stable. Patient is afebrile. Patient is in no acute distress. Oral mucosa is pink and moist. Neck is supple. There is no JVD noted. Heart was regular rate and rhythm. Lungs are clear and equal bilateral. There is good respiratory effort noted. Abdomen is soft. There is a prolapse of his colostomy. There is some tenderness over the colostomy site. There is no erythema. There is no rebound or guarding noted. Cranial nerves II through XII are intact. There are no focal motor or sensory deficits noted. Emergency Department Course and Treatment: Patient was given an injection of morphine and Zofran. Patient was reclined and the colostomy was reduced to the point where the patient stated his colostomy appears normal. Patient felt better. Patient was instructed to follow-up with his primary care physician and surgeon as scheduled. Patient understood and was agreeable with plan. All questions were answered. Disposition: Discharged home Impression: Colostomy prolapse This note was generated with [employer] dictation software. It may contain incorrect words, spelling, and punctuation that were not noted in review of the chart prior to signing ED Disposition - Plan for ED Patient: Disposition: Home or Assisted Living Chief Complaint: Abd Pain Diagnosis: Colostomy prolapse Instructions: ED Prolapse Rectal Referrals: [facility] [Primary Care Provider] -
[2017-11-05] MEDS: Morphine 4 MG/ML Syringe IV ×2 (09:42→11:25)
[2017-11-05] MEDS: Ondansetron 4 MG/2 ML Vial IV (09:50)
[2017-11-05 12:24] VITALS: BP 176/68; PULSE 68; RESP 18; O2SAT 97
== END 2017-11-05 12:25 | disposition home or self-care (01) ==
PROVIDERS: Emergency Provider Emergency Medicine
DX: K63.4 Enteroptosis (principal); Z93.3 Colostomy status; I25.2 Old myocardial infarction; Z95.1 Presence of aortocoronary bypass graft; Z95.0 Presence of cardiac pacemaker; Z72.0 Tobacco use
CPT/HCPCS: 99285; A4216; J2405

== ENCOUNTER 2017-11-17 09:11 | Emergency (ER) | payer MEDICARE, SELFPAY ==
[2017-11-17 09:13] VITALS: BP 179/102; PULSE 101; RESP 16; RESP 18; TEMP 36.7; O2SAT 98; BMI 28.8
--- NOTE | 2017-11-17 09:25 | ED.RN ---
Pt has a significant amount of bowel protruding into colostomy bag. States this occurred after falling and hitting abd.
--- NOTE | 2017-11-17 09:41 | ED.VISSUMM ---
- ER Visit Summary Date of Service: 11/17/17 Chief Complaint: Colostomy problem History of Present Illness: The patient is a 67 M with a 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 Patient states he fell this morning and bowel prolapse into the ostomy bag. He is scheduled for reversal of the colostomy next month at [facility]. Physical Examination: Vital signs significant for blood pressure 179/102. Patient sitting upright in bed. He is appears uncomfortable but he is in no acute distress. Heart is regular rate and rhythm. Lung sounds are clear. Abdomen is soft with moderate diffuse tenderness palpation. There is no guarding or rebound. He does have prolapsed bowel into the colostomy bag. Test Results: [] Emergency Department Course and Treatment: IV line was not able to be established. He was given IM Dilaudid and Zofran. Is able to reduce the herniated bowel but it did re-herniate. He was given additional dose of Dilaudid IM. Bowel loops were reduced and pressure was held. At this time it is maintaining reduction. An abdominal binder was placed. Patient is to follow-up with his surgeon in [place]. Treatment Plan: [] Disposition: Discharge Impression: Bowel herniation at colostomy site, reduced This note was generated with [employer] dictation software. It may contain incorrect words, spelling, and punctuation that were not noted in review of the chart prior to signing ED Disposition - Plan for ED Patient: Chief Complaint: Abd Pain [facility] [Primary Care Provider] -
[2017-11-17] MEDS: Ondansetron 4 MG/2 ML Vial IM (10:15)
[2017-11-17] MEDS: HYDROmorphone 1 MG/ML Syringe IM ×2 (10:15→11:20)
[2017-11-17 11:26] VITALS: BP 175/75; PULSE 95; RESP 20; O2SAT 95
--- NOTE | 2017-11-17 12:55 | ED.DEP ---
ED Disposition - Plan for ED Patient: Disposition: Home or Assisted Living Chief Complaint: Abd Pain Instructions: Colostomy: Answers to Common Questions Prescriptions: Hydrocodone Bitart/Apap 5-325 [Cecil 5MG-325MG] 1 tablet PO Q4H PRN PRN 2 Days #10 tablet PRN Reason: Pain [facility] [[facility]] - Additional Instructions: Follow-up with your surgeon in [place] as soon as possible.
--- NOTE | 2017-11-17 12:59 | DCINST.ED_ITS ---
ED Disposition - Plan for ED Patient: Disposition: Home or Assisted Living Chief Complaint: Abd Pain Instructions: Colostomy: Answers to Common Questions Prescriptions: Hydrocodone Bitart/Apap 5-325 [[place] 5MG-325MG] 1 tablet PO Q4H PRN PRN 2 Days # 10 tablet PRN Reason: Pain [facility] [facility] [Primary [facility]] - Additional Instructions: Follow-up with your surgeon in [place] as soon as possible.
[2017-11-17 13:07] VITALS: BP 178/80; PULSE 105; RESP 16; O2SAT 99
== END 2017-11-17 13:08 | disposition home or self-care (01) ==
PROVIDERS: Emergency Provider Emergency Medicine
DX: K43.5 Parastomal hernia without obstruction or gangrene (principal); Z93.3 Colostomy status; I50.9 Heart failure, unspecified; J44.9 Chronic obstructive pulmonary disease, unspecified; G47.33 Obstructive sleep apnea (adult) (pediatric); E78.00 Pure hypercholesterolemia, unspecified; I25.2 Old myocardial infarction; I48.91 Unspecified atrial fibrillation; Z95.1 Presence of aortocoronary bypass graft; Z95.0 Presence of cardiac pacemaker; Z72.0 Tobacco use; I11.0 Hypertensive heart disease with heart failure
CPT/HCPCS: 96372; 96374; 96375; 99282; J2405

== ENCOUNTER 2017-11-18 14:54 | Emergency (ER) | payer MEDICARE, OTHER, SELFPAY ==
[2017-11-18 14:55] VITALS: BP 168/81; PULSE 89; RESP 16; TEMP 37; O2SAT 98; BMI 29.5
[2017-11-18] MEDS: Ondansetron 4 MG/2 ML Vial IM (15:49)
[2017-11-18] MEDS: HYDROmorphone 1 MG/ML Syringe IM (15:49)
--- NOTE | 2017-11-18 16:15 | ED.VISSUMM ---
- ER Visit Summary Date of Service: 11/18/17 Chief Complaint: [Fall and stoma herniation] History of Present Illness: The patient is a 67 M [presents the emergency department with complaint of a fall 2 hours ago and his colostomy herniating. Patient states that he has a colostomy due to history of diverticulitis. Patient is scheduled to have the colostomy reason first in about a month at [facility]. Patient states he tripped over a bed sheet today falling onto his abdomen. Patient has had multiple other visits for same complaint the last time was yesterday and patient was seen in the emergency department yesterday. Patient denies any nausea or vomiting. Patient denies recent illness.] Physical Examination: [HEENT-PERRLA, EOMI. Cranial nerves II through XII grossly intact. TMs clear. Mucous membranes moist. No adenopathy. Cardiovascular-regular rate and rhythm without murmur or ectopy Lungs-clear to auscultation, chest wall stable without crepitus or subcu emphysema Abdomen-normoactive bowel sounds, soft, tender to palpation around colostomy site., no rebound or rigidity, no peritoneal signs. Patient has a large herniation of bowel through colostomy site in the right lower quadrant. The bowel appears pink. Extremities-intact ?4, normal range of motion, normal pulses, atraumatic] Test Results: [None indicated] Emergency Department Course and Treatment: [Patient was given a milligram of Dilaudid and 4 mg of Zofran IM. I was able to easily reduce the herniation and abdominal binder placed.] Treatment Plan: [Patient to follow-up with his surgeons.] Disposition: [Discharged home in stable condition] Impression: [Mechanical fall Colostomy bowel herniation-reduced] This note was generated with [employer] dictation software. It may contain incorrect words, spelling, and punctuation that were not noted in review of the chart prior to signing ED Disposition - Plan for ED Patient: Chief Complaint: Fall [facility] [[facility]] -
--- NOTE | 2017-11-18 16:18 | ED.DEP ---
ED Disposition - Plan for ED Patient: Chief Complaint: Fall Instructions: ED Mechanical Fall, Colostomy: Caring for Your Stoma Referrals: [place] [Primary Care Provider] - Additional Instructions: see your surgeon
--- NOTE | 2017-11-18 16:19 | DCINST.ED_ITS ---
ED Disposition - Plan for ED Patient: Chief Complaint: Fall Instructions: ED Mechanical Fall, Colostomy: Caring for Your Stoma Referrals: [facility] [Primary Care Provider] - Additional Instructions: see your surgeon
== END 2017-11-18 16:23 | disposition home or self-care (01) ==
PROVIDERS: Emergency Provider Emergency Medicine
DX: K94.09 Other complications of colostomy (principal); Y69 Unspecified misadventure during surgical and medical care; I25.10 Atherosclerotic heart disease of native coronary artery without angina pectoris; I10 Essential (primary) hypertension; I25.2 Old myocardial infarction; Z95.1 Presence of aortocoronary bypass graft; Z72.0 Tobacco use; W01.0XXA Fall on same level from slipping, tripping and stumbling without subsequent striking against object, initial encounter; Y93.9 Activity, unspecified; Y92.89 Other specified places as the place of occurrence of the external cause; Y99.9 Unspecified external cause status
CPT/HCPCS: 96372; 99282; J2405

== ENCOUNTER 2017-11-23 09:56 | Emergency (ER) | payer MEDICARE, OTHER, SELFPAY ==
[2017-11-23 09:57] VITALS: BP 197/88; PULSE 88; RESP 18; TEMP 36.6; O2SAT 97; BMI 30.1
--- NOTE | 2017-11-23 10:12 | ED.VISSUMM ---
- ER Visit Summary Date of Service: 11/23/17 Chief Complaint: [Stoma herniation] History of Present Illness: The patient is a 67 M [who presents the emergency department with pain and herniation around his ostomy. He states he bent down and his bowel came out through his stoma. This is happened several times in the past. He gets pain medicine is reduced. He was told he has to follow-up in [place] to get a reversal. He has followed up with his surgeon about this and they told him the only way to fix it would be to put it in a different place and that he would rather get the reversal but he has not done this yet. He is very nauseated but no vomiting. There has been output nonbloody from the stoma. His surgeon is a Dr. Holbrook in [facility] [place]. Ostomy was placed for ruptured diverticulitis. This occurred approximately a year and half ago.] Physical Examination: [] Blood pressure 197/88 heart rate 88 vitals within normal limits WN WD NAD PERRL EOMI MMM NECK supple and nontender, no masses RRR no murmur rub or gallop, no peripheral edema, symmetric radial pulses CTAB no respiratory distress ABDOMEN is soft there are multiple scars, patient has large herniation at the ostomy it is pink with good cap refill. He is exquisitely tender. There is no surrounding erythema there is brown stool in the ostomy bag normal bowel sounds, no distension, no rebound or guarding SKIN is warm and dry no rashes Alert and Oriented x3, CN II-XII in tact, no motor or sensory deficits, gait normal No lymphadenopathy Test Results: [] Emergency Department Course and Treatment: [Patient was given Dilaudid and Zofran. Ice pack was applied. Hernia was easily reduced with gentle pressure. Ostomy will bring was intact and mucosa was pink. Abdominal binder was placed and patient was advised to follow-up with Dr. Holbrook as soon as possible] Treatment Plan: [] Disposition: [Discharge] Impression: [Herniation of ostomy with ER reduction] This note was generated with [employer] dictation software. It may contain incorrect words, spelling, and punctuation that were not noted in review of the chart prior to signing ED Disposition - Plan for ED Patient: Chief Complaint: Other, Pain/Inj [facility] [facility] [Primary [facility] Provider] -
--- NOTE | 2017-11-23 10:15 | ED.DCSUM_ITS ---
- ER Visit Summary Date of Service: 11/23/17 Chief Complaint: [Stoma herniation] History of Present Illness: The patient is a 67 M [who presents the emergency department with pain and herniation around his ostomy. He states he bent down and his bowel came out through his stoma. This is happened several times in the past. He gets pain medicine is reduced. He was told he has to follow-up in [place] to get a reversal. He has followed up with his surgeon about this and they told him the only way to fix it would be to put it in a different place and that he would rather get the reversal but he has not done this yet. He is very nauseated but no vomiting. There has been output nonbloody from the stoma. His surgeon is a Dr. Holbrook in [facility] [place]. Ostomy was placed for ruptured diverticulitis. This occurred approximately a year and half ago.] Physical Examination: [] Blood pressure 197/88 heart rate 88 vitals within normal limits WN WD NAD PERRL EOMI MMM NECK supple and nontender, no masses RRR no murmur rub or gallop, no peripheral edema, symmetric radial pulses CTAB no respiratory distress ABDOMEN is soft there are multiple scars, patient has large herniation at the ostomy it is pink with good cap refill. He is exquisitely tender. There is no surrounding erythema there is brown stool in the ostomy bag normal bowel sounds , no distension, no rebound or guarding SKIN is warm and dry no rashes Alert and Oriented x3, CN II-XII in tact, no motor or sensory deficits, gait normal No lymphadenopathy Test Results: [] Emergency Department Course and Treatment: [Patient was given Dilaudid and Zofran. Ice pack was applied. Hernia was easily reduced with gentle pressure. Ostomy will bring was intact and mucosa was pink. Abdominal binder was placed and patient was advised to follow-up with Dr. Holbrook as soon as possible ] Treatment Plan: [] Disposition: [Discharge] Impression: [Herniation of ostomy with ER reduction] This note was generated with [employer] dictation software. It may contain incorrect words, spelling, and punctuation that were not noted in review of the chart prior to signing ED Disposition - Plan for ED Patient: Chief Complaint: Other, Pain/Inj [facility] [facility] [Primary Care Provider] -
[2017-11-23] MEDS: HYDROmorphone 1 MG/ML Syringe IV (11:07)
[2017-11-23] MEDS: Ondansetron 4 MG/2 ML Vial IV (11:07)
--- NOTE | 2017-11-23 11:16 | ED.DEP ---
ED Disposition - Plan for ED Patient: Chief Complaint: Other, Pain/Inj Instructions: What Is a Hernia? Referrals: Yusef Morales [Other] - 2 Days
--- NOTE | 2017-11-23 11:31 | ED.RN ---
changed ostomy with pt's own home supplies. binder now in place.
[2017-11-23 11:37] VITALS: BP 176/88; PULSE 80; RESP 16; O2SAT 95
== END 2017-11-23 11:38 | disposition home or self-care (01) ==
PROVIDERS: Emergency Provider Emergency Medicine
DX: K94.09 Other complications of colostomy (principal); Z87.19 Personal history of other diseases of the digestive system; Z79.82 Long term (current) use of aspirin; Z79.899 Other long term (current) drug therapy; Z72.0 Tobacco use
CPT/HCPCS: 96374; 96375; 99285; A4216; J2405

== ENCOUNTER 2017-11-28 21:11 | Emergency (ER) | payer MEDICARE, OTHER, SELFPAY ==
[2017-11-28 21:13] VITALS: BP 158/69; PULSE 70; RESP 17; O2SAT 98; BMI 30.6
[2017-11-28] MEDS: morphine 10 MG/ML Syringe IM (22:13)
[2017-11-28 23:00] VITALS: BP 139/69; PULSE 61; RESP 16; O2SAT 94
--- NOTE | 2017-11-28 23:04 | ED.VISSUMM ---
- ER Visit Summary Date of Service: 11/28/17 Chief Complaint: Herniated bowel into colostomy History of Present Illness: The patient is a 67 M prior colostomy secondary to diverticulitis. Also prior history of MT, CAD, triple bypass and cardiac stents. Patient states that tonight his bowel once again herniated into his colostomy bag. Before that he was feeling fine. He denies any vomiting. He denies any significant pain. This happens quite frequently. He is well-known to this emergency department for this particular complaint. He is supposed to have a revision of his colostomy but that is still pending. Physical Examination: Well-appearing male no acute distress. Vital signs stable. He does not look septic or toxic. No acute distress. H EENT exam unremarkable. Neck nontender. Lungs clear to auscultation. Heart regular rhythm. Abdomen soft. Nondistended normal bowel sounds. He has a colostomy bag in the right lower quadrant. He has bowel that is herniated into the bag. There is also stool and gas. There is no blood. He has minimal tenderness. There is no signs of bowel obstruction. He is moving all 4 extremities. Neurologically is awake and alert. Test Results: None Emergency Department Course and Treatment: Patient was lied supine. Given IM morphine. On repeat exams his bowel is now back into his abdominal cavity. He is feeling better and will be discharged to home. Treatment Plan: Follow-up with the [place]. Disposition: Discharge Impression: Acute on chronic colostomy herniation resolved History of CAD with prior CABG and stents This note was generated with [employer] dictation software. It may contain incorrect words, spelling, and punctuation that were not noted in review of the chart prior to signing ED Disposition - Plan for ED Patient: Chief Complaint: Shortness of Breath Referrals: [facility] [Primary Care Provider] -
--- NOTE | 2017-11-28 23:07 | ED.DEP ---
ED Disposition - Plan for ED Patient: Disposition: Home or Assisted Living Chief Complaint: Shortness of Breath [facility] - As Needed Additional Instructions[facility]
--- NOTE | 2017-11-28 23:08 | ED.DCSUM_ITS ---
- ER Visit Summary Date of Service: 11/28/17 Chief Complaint: Herniated bowel into colostomy History of Present Illness: The patient is a 67 M prior colostomy secondary to diverticulitis. Also prior history of [place], CAD, triple bypass and cardiac stents. Patient states that tonight his bowel once again herniated into his colostomy bag. Before that he was feeling fine. He denies any vomiting. He denies any significant pain. This happens quite frequently. He is well-known to this emergency department for this particular complaint. He is supposed to have a revision of his colostomy but that is still pending. Physical Examination: Well-appearing male no acute distress. Vital signs stable. He does not look septic or toxic. No acute distress. H EENT exam unremarkable. Neck nontender. Lungs clear to auscultation. Heart regular rhythm. Abdomen soft. Nondistended normal bowel sounds. He has a colostomy bag in the right lower quadrant. He has bowel that is herniated into the bag. There is also stool and gas. There is no blood. He has minimal tenderness. There is no signs of bowel obstruction. He is moving all 4 extremities. Neurologically is awake and alert. Test Results: None Emergency Department Course and Treatment: Patient was lied supine. Given IM morphine. On repeat exams his bowel is now back into his abdominal cavity. He is feeling better and will be discharged to home. Treatment Plan: Follow-up with the [place]. 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 It may contain incorrect words, spelling, and punctuation that were not noted in review of the chart prior to signing ED Disposition - Plan for ED Patient: Chief Complaint: Shortness of Breath [facility] [facility] [[facility] Provider] -
[2017-11-28 23:13] VITALS: PULSE 74; RESP 16; O2SAT 95
== END 2017-11-28 23:14 | disposition home or self-care (01) ==
PROVIDERS: Emergency Provider Emergency Medicine
DX: K43.5 Parastomal hernia without obstruction or gangrene (principal); I25.10 Atherosclerotic heart disease of native coronary artery without angina pectoris; Z95.1 Presence of aortocoronary bypass graft; I25.2 Old myocardial infarction; Z93.3 Colostomy status; Z72.0 Tobacco use
CPT/HCPCS: 99283

== ENCOUNTER 2017-12-17 11:04 | Emergency (ER) | payer MEDICARE, OTHER, SELFPAY ==
[2017-12-17 11:09] VITALS: BP 142/78; PULSE 85; RESP 18; TEMP 36.8; O2SAT 95; BMI 30.9
[2017-12-17] MEDS: Acetaminophen 500 MG Tablet 1000 MG PO (11:45)
[2017-12-17] MEDS: 0.9% Normal Saline 1,000 ML 150 ML IV (11:45)
[2017-12-17] MEDS: Aspirin 81 MG TAB.CHEW 324 MG PO (11:46)
[2017-12-17] MEDS: Ondansetron 4 MG/2 ML Vial IV (11:48)
[2017-12-17 12:19] LABS: Absolute Lymphocyte Count 1.51 X10^3/ul (0.83-4.51); Absolute Neutrophil Count 9.4 X10^3/uL (2.0-7.7); Basophil# 0.03 X10^3/uL; Basophil% 0.3 % (0-1); Eosinophil# 0.14 X10^3/uL; Eosinophils% 1.2 % (0-5); Hematocrit 42.7 % (40-54); Hemoglobin 14.5 g/dl (13.0-16.5); Lymphocyte # 1.51 X10^3/ul (4.0); Lymphocyte % 12.9 % (19-41); Mean Corpuscular Hgb 31.5 pg (27.0-32.0); Mean Corpuscular Volume 92.6 fL (80-94); Mean Platelet Vol. 10.6 fl (6.2-12.0); Monocyte# 0.62 X10^3/uL; Monocyte% 5.3 % (0-10); Neutrophil # 9.39 X10^3/uL (2.7-7.7); Neutrophil % 80.1 % (47-70); Platelet Count 296 K/mm3 (150-450); RBC Distribution Width SD 53.4 fl (35.1-43.9); Red Blood Count 4.61 M/mm3 (4.6-6.2); White Blood Count 11.7 K/mm3 (4.4-11.0)
[2017-12-17 12:22] LABS: POSITIVE COUNT NO; POSITIVE DIFFERENTIAL NO; POSITIVE MORPHOLOGY NO
[2017-12-17 12:29] LABS: Anion Gap 8 (5-15); BUN 17 mg/dL (7-18); BUN/Creat Ratio 13.8 RATIO (10-20); Calcium,Total 9.9 mg/dL (8.5-10.1); Chloride 104 mmol/L (98-107); Creatinine, Serum 1.23 mg/dL (0.70-1.30); EST Glomerular Filtration Rate 63 mL/min (>60); Est Glom Filt Rate - Afr Amer 76 mL/min (>60); Estimated Creatinine Clearance 57.15 ml/min; Glucose 154 mg/dL (74-106); Potassium 4.8 mmol/L (3.5-5.1); Sodium Level 137 mmol/L (136-145)
--- NOTE | 2017-12-17 12:38 | ED.VISSUMM ---
- ER Visit Summary Date of Service: 12/17/17 Chief Complaint: Colostomy bag broke History of Present Illness: The patient is a 67 M who goes to the [facility]. He presents complaining that his colostomy bag broke approximately 30 minutes ago. States that he has a history of prolapse of his ostomy and that he is supposed to have this reversed at [facility] next month. He states that he does not remember the surgeon's name. On review of systems patient states that he has chest pain that began approximately 3-1/2 hours ago. It began while he was at rest. Some aching pain. Is 10 out of 10 at worst no 10 currently. Is worsened by walking periods relieved by rest. He is complains of nausea and shortness of breath with this. There is no radiation of the pain. Physical Examination: Vitals: Stable. Afebrile. General: Well-nourished and well-developed. Head: Normocephalic atraumatic. Neck: Supple, no lymphadenopathy. No JVD. Nontender. Cardiovascular: Regular rate and rhythm. No murmurs. Respiratory: No respiratory distress. Clear to auscultation bilaterally. Abdominal: Soft, moderate tenderness to palpation surrounding his ostomy. There is approximately 3 cm of prolapse. It is not dusky. nondistended, normal bowel sounds. No guarding, rebound, or peritoneal signs. Back: Nontender. Extremities: Nontender, no edema. Skin: Normal color, no rash. Neurologic: Alert and oriented ?3. Cranial nerves II through XII are intact. Normal strength and sensation. Psych: Normal affect. Test Results: EKG is sinus at 86 and is unchanged from August of this year. Troponins negative. Chem-7 is more for glucose 154. CBC is marked for white count 11.7 with 80 segmented neutrophils and 13 lymphocytes. Chest x-ray is normal. Emergency Department Course and Treatment: Patient was seen by the ostomy nurse his stoma dressed and he tolerated this well. Patient is given Tylenol for pain. He was given aspirin for his chest pain. Treatment Plan: This time I have concerned about opiate seeking behavior in the patient. He has been here frequently. He is given multiple different stories about surgical follow-up for his prolapsed ostomy. The chest pain he complained of was in an after thought and only came up on review of systems. I do not feel that he needs to be admitted to the hospital. Also be instructed in follow-up with his surgeon as soon as possible as well as the [facility]. I do feel at this point patient needs to have a care plan he will be referred to case management. Disposition: Home in stable condition Impression: 1. Chest pain, atypical. 2. MARTIN score 4. 3. Colostomy prolapse, recurrent. This note was generated with Audioms dictation software. It may contain incorrect words, spelling, and punctuation that were not noted in review of the chart prior to signing ED Disposition - Plan for ED Patient: Chief Complaint: Chest Pain Instructions: Discharge Instructions for Colostomy, ED Chest Pain Atypical Unkn Cause [facility] [[facility] - As soon as possible
--- NOTE | 2017-12-17 12:44 | ED.DCSUM_ITS ---
- ER Visit Summary Date of Service: 12/17/17 Chief Complaint: Colostomy bag broke History of Present Illness: The patient is a 67 M who goes to the [facility]. He presents complaining that his colostomy bag broke approximately 30 minutes ago. States that he has a history of prolapse of his ostomy and that he is supposed to have this reversed at [facility] next month. He states that he does not remember the surgeon's name. On review of systems patient states that he has chest pain that began approximately 3-1/2 hours ago. It began while he was at rest. Some aching pain. Is 10 out of 10 at worst no 10 currently. Is worsened by walking periods relieved by rest. He is complains of nausea and shortness of breath with this. There is no radiation of the pain. Physical Examination: Vitals: Stable. Afebrile. General: Well-nourished and well-developed. Head: Normocephalic atraumatic. Neck: Supple, no lymphadenopathy. No JVD. Nontender. Cardiovascular: Regular rate and rhythm. No murmurs. Respiratory: No respiratory distress. Clear to auscultation bilaterally. Abdominal: Soft, moderate tenderness to palpation surrounding his ostomy. There is approximately 3 cm of prolapse. It is not dusky. nondistended, normal bowel sounds. No guarding, rebound, or peritoneal signs. Back: Nontender. Extremities: Nontender, no edema. Skin: Normal color, no rash. Neurologic: Alert and oriented ?3. Cranial nerves II through XII are intact. Normal strength and sensation. Psych: Normal affect. Test Results: EKG is sinus at 86 and is unchanged from August of this year. Troponins negative. Chem-7 is more for glucose 154. CBC is marked for white count 11.7 with 80 segmented neutrophils and 13 lymphocytes. Chest x-ray is normal. Emergency Department Course and Treatment: Patient was seen by the ostomy nurse his stoma dressed and he tolerated this well. Patient is given Tylenol for pain. He was given aspirin for his chest pain. Treatment Plan: This time I have concerned about opiate seeking behavior in the patient. He has been here frequently. He is given multiple different stories about surgical follow-up for his prolapsed ostomy. The chest pain he complained of was in an after thought and only came up on review of systems. I do not feel that he needs to be admitted to the hospital. Also be instructed in follow-up with his surgeon as soon as possible as well as the [facility]. I do feel at this point patient needs to have a care plan he will be referred to case management. Disposition: Home in stable condition Impression: 1. Chest pain, atypical. 2. MARTIN score 4. 3. Colostomy prolapse, recurrent. This note was generated with eDabba dictation software. It may contain incorrect words, spelling, and punctuation that were not noted in review of the chart prior to signing ED Disposition - Plan for ED Patient: Chief Complaint: Chest Pain Instructions: Discharge Instructions for Colostomy, ED Chest Pain Atypical Unkn Cause [facility] [[facility] - As soon as possible
--- NOTE | 2017-12-17 13:11 | CM.ED ---
Social Work Note Referral from Dr. Fregoso for frequent visits. Upon review pt has had 14 visits in 2018 and 13 within the past 3 months. Introduced self and role to pt. Pt reports to live with his brother and claims to have access to transportation. States that he sees a CT provider, but is unable to provide the name of the physician and states that it changes. Reports that he goes to the [facility] and they are always switching up the provider that evaluates him. States that he was last seen there last month. Discuss that the pt has had several visits to our ED in the last 3 months and that establishing care with a specialized provider would meet his needs better than seeking care for chronic concerns in the ED. Inquire if the pt would like assistance establishing care with a primary care provider in his area, and the pt states, No, I know where to go if I need that. Pt reports anxiety surrounding his ostomy. Educate to the benefit of counseling and pt declines. Offer support and resources. Pt states that he does not need these. Leave information with pt anyways. Pt reports having HH and states that this is to be setup again through an agency in [place]. Reports that it is not through the [facility]. Pt's story does not line up and seems to conflict with what he tells other staff members. Placed call to [facility] and left a vm with Fani Patel RN with Team [address] Requested a return phone call. Per learning development specialist the pt has not been seen by a specialist or physician at the [facility] since June of 2016. Will await a return phone call from the RN CM at the [facility]. OARRS report run by Dr. Fregoso. Overdose Risk Score is 650. Within the last two years there have been 61 schedule II prescriptions, by 49 providers and filled at 15 different pharmacies. EDCP to be developed for continuity of care. If EDCP is approved by multidisciplinary team will contact pt to notify and mail out approved plan. Plan: Development of EDCP Mirtha Thurston, TIRE BUSTER, PLATINU[employer]MITH
[2017-12-17 13:24] VITALS: BP 152/73; PULSE 69; RESP 18; O2SAT 98
== END 2017-12-17 13:26 | disposition home or self-care (01) ==
LOC: ED 12:14
PROVIDERS: Emergency Provider Emergency Medicine
DX: R07.89 Other chest pain (principal); K94.09 Other complications of colostomy; I10 Essential (primary) hypertension; E78.00 Pure hypercholesterolemia, unspecified; I25.10 Atherosclerotic heart disease of native coronary artery without angina pectoris; I25.2 Old myocardial infarction; Z95.1 Presence of aortocoronary bypass graft; F17.200 Nicotine dependence, unspecified, uncomplicated
CPT/HCPCS: 71045; 80048; 84484; 85025; 93005; 99284; J7030; A4216; J2405

== ENCOUNTER 2018-02-19 07:51 | Emergency (ER) | payer MEDICARE, OTHER, SELFPAY ==
[2018-02-19] VITALS (10 sets, daily range): BP systolic 120–185; BP diastolic 63–96; PULSE 68–99; RESP 16–27; TEMP 36.6; O2SAT 95–99; BMI 28.8
--- NOTE | 2018-02-19 08:12 | RAD_ITS ---
STUDY: X-RAY CHEST REASON FOR EXAM: Male, 67 years old. Chest pain. TECHNIQUE: Single AP portable view of the chest. COMPARISON: Comparison is made with prior study dated December 17, 2017. FINDINGS: EKG electrodes are seen. Findings suggestive of a focal eventration of the left hemidiaphragm. This is unchanged. Stable mild increased markings at the left lung base. There is no demonstrated pleural abnormality. Sternal cerclage wires and vascular clips are present from a prior sternotomy and coronary artery bypass graft procedure (CABG). A left-sided dual-chamber pacemaker is seen. Normal mediastinum and irene. Normal visualized pulmonary arteries. There is atherosclerotic calcification of the aortic arch with tortuosity. There are diffuse degenerative changes of the visualized thoracic spine. Normal visualized ribs, clavicles, and shoulders. There is no demonstrated abnormality of the visualized soft tissue structures of the upper abdomen. RAD/Chest 1 View (Portable) IMPRESSION: Focal eventration of the left hemidiaphragm. There has been no change. Electronically Signed: Franki Baker MD at 8:57 EDT Tel [phone], Service support ,
--- NOTE | 2018-02-19 08:12 | EKG12_ITS ---
Test Reason : CP Blood Pressure : / mmHG Vent. Rate : 091 BPM Atrial Rate : 091 BPM P-R Int : 174 ms QRS Dur : 108 ms QT Int : 326 ms P-R-T Axes : 068 047 023 degrees QTc Int : 400 ms Normal sinus rhythm Possible Left atrial enlargement Nonspecific T wave abnormality Abnormal ECG Confirmed by LAUREEN METCALF, KASSANDRA ([id number]), food editor DAPHNEY DAVISON ([id number]) on 02/22/2018 1:05:12 PM Referred By: FRANCISCO Confirmed By:KASSANDRA GARDUNO MD
--- NOTE | 2018-02-19 08:16 | RAD_ITS ---
STUDY: X-RAY - ABDOMEN/PELVIS REASON FOR EXAM: Male, 67 years old. Colostomy pain. TECHNIQUE: Single AP view of the abdomen / pelvis. COMPARISON: Comparison is made with prior study dated October 20, 2017. FINDINGS: A colostomy is seen in the right midabdomen. A large amount of fecal material is seen at the colostomy site. There is an unremarkable bowel gas pattern. The visualized liver, spleen and kidneys are grossly normal in size and morphology. Normal soft tissue structures. There are diffuse degenerative changes of the visualized lumbar spine. RAD/Abdomen Single View (Portable) IMPRESSION: A large amount of fecal material is seen at the colostomy site. Electronically Signed: Franki Baker MD at 8:58 EDT Tel [phone], Service support ,
[2018-02-19] MEDS: Aspirin 81 MG TAB.CHEW 324 MG PO (08:25)
[2018-02-19] MEDS: morphine 8 MG/ML Syringe IV (08:26)
[2018-02-19] MEDS: Ondansetron 4 MG/2 ML Vial IV (08:26)
[2018-02-19 08:42] LABS: Absolute Lymphocyte Count 1.59 X10^3/ul (0.83-4.51); Absolute Neutrophil Count 6.8 X10^3/uL (2.0-7.7); Basophil# 0.03 X10^3/uL; Basophil% 0.3 % (0-1); Eosinophil# 0.16 X10^3/uL; Eosinophils% 1.8 % (0-5); Hematocrit 43.2 % (40-54); Hemoglobin 14.7 g/dl (13.0-16.5); Lymphocyte # 1.59 X10^3/ul (4.0); Lymphocyte % 17.7 % (19-41); Mean Corpuscular Hgb 32.1 pg (27.0-32.0); Mean Corpuscular Volume 94.3 fL (80-94); Mean Platelet Vol. 10.3 fl (6.2-12.0); Monocyte# 0.43 X10^3/uL; Monocyte% 4.8 % (0-10); Neutrophil # 6.76 X10^3/uL (2.7-7.7); Neutrophil % 75.3 % (47-70); Platelet Count 345 K/mm3 (150-450); RBC Distribution Width CV 14.3 % (11.6-14.6); RBC Distribution Width SD 47.7 fl (35.1-43.9); Red Blood Count 4.58 M/mm3 (4.6-6.2)
[2018-02-19 08:43] LABS: POSITIVE COUNT NO; POSITIVE DIFFERENTIAL NO; POSITIVE MORPHOLOGY NO
[2018-02-19 08:53] LABS: Anion Gap 7 (5-15); BUN 11 mg/dL (7-18); BUN/Creat Ratio 10.4 RATIO (10-20); Calcium,Total 9.6 mg/dL (8.5-10.1); Chloride 102 mmol/L (98-107); Creatinine, Serum 1.06 mg/dL (0.70-1.30); EST Glomerular Filtration Rate 74 mL/min (>60); Est Glom Filt Rate - Afr Amer 90 mL/min (>60); Estimated Creatinine Clearance 68.55 ml/min; Glucose 171 mg/dL (74-106); Potassium 3.9 mmol/L (3.5-5.1); Sodium Level 139 mmol/L (136-145)
[2018-02-19] MEDS: Morphine 4 MG/ML Syringe IV (09:32)
--- NOTE | 2018-02-19 09:32 | ED.VISSUMM ---
- ER Visit Summary Date of Service: 02/19/18 Chief Complaint: Chest pain abdominal pain History of Present Illness: The patient is a 67 M presenting for evaluation secondary to chest pain and abdominal pain. Patient has a underlying history of coronary artery disease with PCI performed in April. Patient states that about 30 minutes ago he had a sudden onset of chest pain. Patient reports that it is a continuous sharp severe chest pain that that has no exacerbating relieving factors and associated with nausea and dyspnea. Patient states that also around the same time he had some bulging from his stoma. He has a history of a colostomy secondary to diverticulitis that was placed about a year and a half ago. Patient reports to me that this was done in [place], but chart review says that this was done at the [facility]. Patient states that he has does have pain around the stoma and he has had to have this reduced in the past. Chart review shows that the patient has reportedly been scheduled for a stomal revision in the past, but does not appear that he has yet to receive this. Physical Examination: Vital signs notable for hypertension 185/63. Well-nourished male no acute distress. Head normocephalic. Moist mucous membranes. Neck supple no JVD. Heart regular rate and rhythm no murmurs large midline chest scar noted well-healed respirations nondistressed lungs clear. Abdomen was soft throughout the quadrants, but the patient's stoma shows a large stomal hernia that is tender to palpation, difficult to reduce, but pink and not dusky with peristaltic movements noted on visual inspection. Peripheral pulses are 2+ and symmetric. Remainder physical otherwise unremarkable. Test Results: EKG demonstrates sinus rhythm at [address] segments nonspecific T wave changes and no evidence of changes from November of this year. Chest x-ray shows chronic changes. Abdominal x-ray shows stool surrounding the patient's stoma. CBC chemistry and troponin are negative. Emergency Department Course and Treatment: Patient presented with chest pain as well as a stomal hernia. Patient's chest pain was addressed as noted above he was given aspirin morphine nitroglycerin. He was continually asking for additional doses of morphine. I discussed patient's case with Dr. North, who recommended that sugar be placed on the stoma and it be attempted for manual reduction. I did perform this, was able to get somewhat of a reduction but the stoma did again begin to protrude. It still maintains peristaltic movement and continues to be pink. Patient was observed in the emergency department for 3-1/2 hours. A delta troponin was obtained and was found to be negative. I reviewed patient's records, he has multiple similar prior presentations and seems to have somewhat of a drug-seeking pattern. Patient was placed in supine position, and repeat evaluation showed improvement of his stomal hernia with continued good perfusion. He also has active drainage from it. I do not believe there is any evidence of obstruction. I do not believe the patient requires admission for revision, and also does not seem to require admission for his chest pain. [facility] Disposition: Discharge Impression: 1. Chest pain 2. Acute on chronic stomal herniation This note was generated with Stipple dictation software. It may contain incorrect words, spelling, and punctuation that were not noted in review of the chart prior to signing ED Disposition - Plan for ED Patient: Disposition: Home or Assisted Living Chief Complaint: Chest Pain Diagnosis: Chest pain, Hernia Instructions: What Is a Hernia? [facility] [[facility] - As soon as possible
--- NOTE | 2018-02-19 09:36 | ED.DCSUM_ITS ---
- ER Visit Summary Date of Service: 02/19/18 Chief Complaint: Chest pain abdominal pain History of Present Illness: The patient is a 67 M presenting for evaluation secondary to chest pain and abdominal pain. Patient has a underlying history of coronary artery disease with PCI performed in April. Patient states that about 30 minutes ago he had a sudden onset of chest pain. Patient reports that it is a continuous sharp severe chest pain that that has no exacerbating relieving factors and associated with nausea and dyspnea. Patient states that also around the same time he had some bulging from his stoma. He has a history of a colostomy secondary to diverticulitis that was placed about a year and a half ago. Patient reports to me that this was done in [place], but chart review says that this was done at the [facility]. Patient states that he has does have pain around the stoma and he has had to have this reduced in the past. Chart review shows that the patient has reportedly been scheduled for a stomal revision in the past, but does not appear that he has yet to receive this. Physical Examination: Vital signs notable for hypertension 185/63. Well- nourished male no acute distress. Head normocephalic. Moist mucous membranes. Neck supple no JVD. Heart regular rate and rhythm no murmurs large midline chest scar noted well-healed respirations nondistressed lungs clear. Abdomen was soft throughout the quadrants, but the patient's stoma shows a large stomal hernia that is tender to palpation, difficult to reduce, but pink and not dusky with peristaltic movements noted on visual inspection. Peripheral pulses are 2+ and symmetric. Remainder physical otherwise unremarkable. Test Results: EKG demonstrates sinus rhythm at [address] segments nonspecific T wave changes and no evidence of changes from November of this year. Chest x-ray shows chronic changes. Abdominal x-ray shows stool surrounding the patient's stoma. CBC chemistry and troponin are negative. Emergency Department Course and Treatment: Patient presented with chest pain as well as a stomal hernia. Patient's chest pain was addressed as noted above he was given aspirin morphine nitroglycerin. He was continually asking for additional doses of morphine. I discussed patient's case with Dr. North, who recommended that sugar be placed on the stoma and it be attempted for manual reduction. I did perform this, was able to get somewhat of a reduction but the stoma did again begin to protrude. It still maintains peristaltic movement and continues to be pink. Patient was observed in the emergency department for 3- 1/2 hours. A delta troponin was obtained and was found to be negative. I reviewed patient's records, he has multiple similar prior presentations and seems to have somewhat of a drug-seeking pattern. Patient was placed in supine position, and repeat evaluation showed improvement of his stomal hernia with continued good perfusion. He also has active drainage from it. I do not believe there is any evidence of obstruction. I do not believe the patient requires admission for revision, and also does not seem to require admission for his chest pain. [facility] Disposition: Discharge Impression: 1. Chest pain 2. 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 It may contain incorrect words, spelling, and punctuation that were not noted in review of the chart prior to signing ED Disposition - Plan for ED Patient: Disposition: Home or Assisted Living Chief Complaint: Chest Pain Diagnosis: Chest pain, Hernia Instructions: What Is a Hernia? [facility] - As soon as possible
--- NOTE | 2018-05-16 17:45 | CM.ED ---
Social Work Note EDCP entered into pt's chart. Mailed out via certified mail (#[phone]). This included the EDCP, Where to Go, When to Go and local physicians that accept the pt's insurance. RITA Epstein, CINDY
== END 2018-02-19 12:54 | disposition home or self-care (01) ==
PROVIDERS: Emergency Provider Emergency Medicine
DX: R07.9 Chest pain, unspecified (principal); K94.09 Other complications of colostomy; I25.10 Atherosclerotic heart disease of native coronary artery without angina pectoris
CPT/HCPCS: 71045; 74018; 80048; 84484; 85025; 93005; 96374; 96375; 96376; 99285; A4216; J2405

== ENCOUNTER 2018-03-31 19:43 | Emergency (ER) | payer MEDICARE, OTHER, SELFPAY ==
[2018-03-31 19:44] VITALS: BP 151/79; PULSE 78; RESP 18; TEMP 36.6; O2SAT 96; BMI 29.6
--- NOTE | 2018-03-31 20:28 | EKG12_ITS ---
Test Reason : CP Blood Pressure : / mmHG Vent. Rate : 066 BPM Atrial Rate : 066 BPM P-R Int : 222 ms QRS Dur : 106 ms QT Int : 400 ms P-R-T Axes : 051 028 021 degrees QTc Int : 419 ms Sinus rhythm with 1st degree A-V block Possible Left atrial enlargement Possible Inferior infarct , age undetermined Nonspecific T wave abnormality Abnormal ECG Confirmed by LAUREEN METCALF, KASSANDRA ([id number]), medical transcription editor DAPHNEY DAVISON ([id number]) on 04/02/2018 3:22:42 PM Referred By: DANIEL Confirmed By:KASSANDRA GARDUNO MD
[2018-03-31] MEDS: Aspirin 81 MG TAB.CHEW 243 MG PO (20:51)
[2018-03-31] MEDS: HYDROmorphone 1 MG/ML Syringe 0.5 MG IV (20:51)
[2018-03-31] MEDS: Ondansetron 4 MG/2 ML Vial IV (20:51)
[2018-03-31] MEDS: 0.9% Normal Saline 1,000 ML 150 ML IV (20:56)
[2018-03-31 20:57] VITALS: BP 171/77; PULSE 75; RESP 17
[2018-03-31 21:10] LABS: Absolute Lymphocyte Count 1.75 X10^3/ul (0.83-4.51); Absolute Neutrophil Count 4.1 X10^3/uL (2.0-7.7); Basophil# 0.03 X10^3/uL; Basophil% 0.4 % (0-1); Eosinophil# 0.37 X10^3/uL; Eosinophils% 5.3 % (0-5); Hematocrit 42.1 % (40-54); Hemoglobin 14.2 g/dl (13.0-16.5); Lymphocyte # 1.75 X10^3/ul (4.0); Lymphocyte % 25.3 % (19-41); Mean Corp Hgb Conc 33.7 g/gl (32-36); Mean Corpuscular Hgb 31.2 pg (27.0-32.0); Mean Corpuscular Volume 92.5 fL (80-94); Mean Platelet Vol. 10.2 fl (6.2-12.0); Monocyte# 0.64 X10^3/uL; Monocyte% 9.2 % (0-10); Neutrophil # 4.14 X10^3/uL (2.7-7.7); Neutrophil % 59.8 % (47-70); Platelet Count 276 K/mm3 (150-450); RBC Distribution Width CV 14.1 % (11.6-14.6); RBC Distribution Width SD 48.2 fl (35.1-43.9); Red Blood Count 4.55 M/mm3 (4.6-6.2); White Blood Count 6.9 K/mm3 (4.4-11.0)
[2018-03-31 21:12] LABS: POSITIVE COUNT NO; POSITIVE DIFFERENTIAL NO; POSITIVE MORPHOLOGY NO
--- NOTE | 2018-03-31 21:37 | RAD_ITS ---
STUDY: X-RAY CHEST REASON FOR EXAM: Male, 67 years old. Chest pain TECHNIQUE: A single frontal view of the chest was obtained. COMPARISON: February 19, 2018 FINDINGS: The lungs are underaerated. There are no focal airspace opacities. There is no demonstrated pleural abnormality. There is mild enlargement of the cardiac silhouette. Sternotomy wires are present. A pacing device is again seen in the left chest. There are surgical clips in the mediastinum. Normal visualized pulmonary arteries. There is atherosclerotic calcification of the thoracic aorta. There are diffuse degenerative changes of the visualized spine. There are degenerative changes in both shoulders. There is stable focal eventration of the left diaphragm. RAD/Chest 1 View (Portable) IMPRESSION: No acute cardiopulmonary abnormalities. There is stable mild enlargement of the cardiac silhouette without pulmonary edema or pleural effusion. Electronically Signed: Verenice Dugan MD at 23:44 EST Tel Direct: [phone], Service support ,
[2018-03-31 22:03] LABS: Anion Gap 9 (5-15); BUN 15 mg/dL (7-18); BUN/Creat Ratio 14.9 RATIO (10-20); Calcium,Total 9.3 mg/dL (8.5-10.1); Chloride 103 mmol/L (98-107); Creatinine, Serum 1.01 mg/dL (0.70-1.30); EST Glomerular Filtration Rate 78 mL/min (>60); Est Glom Filt Rate - Afr Amer 95 mL/min (>60); Glucose 95 mg/dL (74-106); Potassium 4.1 mmol/L (3.5-5.1); Sodium Level 141 mmol/L (136-145)
[2018-03-31] MEDS: HYDROmorphone 0.5 MG/0.5 ML SYRINGE IV (22:28)
--- NOTE | 2018-03-31 22:52 | ED.VISSUMM ---
- ER Visit Summary Date of Service: 03/31/18 Chief Complaint: Abdominal pain History of Present Illness: The patient is a 67 M who presents with a 1 hour history of abdominal pain. Patient states his stoma has been bulging into his colostomy bag for the past hour. Patient also tells me that he has had some chest pressure for the past hour. This is not mentioned to the triage nurse. He denies shortness of breath. He was sitting at rest the time of onset. He does have a history of triple bypass surgery along with cardiac stents, most recently being placed 1 year ago. He states his last stress test was 6 months ago. Patient has been to the ED multiple times with protrusion of his stoma. He tells me that he will hopefully have surgery next month. It is noted that over his last several visits he will he states that he would have surgery within the next month. Physical Examination: Vital signs are grossly unremarkable. Patient sitting upright in bed no acute distress. Head neck examination is unremarkable. Heart is regular rate and rhythm. Lung sounds are clear. Midline sternal scar is noted from prior CABG. Abdomen is soft. Stoma is protruding into the colostomy bag. No blood is noted with the stool. Test Results: EKG is sinus at 66. He has chronic lateral T wave changes noted. No acute ST change. Portable chest x-ray shows no focal consolidation with stable chronic changes. CBC and chemistry studies are normal. Troponin is less than 0.015. Emergency Department Course and Treatment: Patient received aspirin along with a small dose of Dilaudid and Zofran on arrival. Once a new cardiac workup was unremarkable patient was given an additional 0.5 mg of Dilaudid., Was then reduced and abdominal binder was placed. Patient is advised to follow-up with a surgeon. Treatment Plan: [] Disposition: Discharge Impression: 1. Prolapsed stoma, reduced 2. Atypical chest pain This note was generated with [employer] dictation software. It may contain incorrect words, spelling, and punctuation that were not noted in review of the chart prior to signing ED Disposition - Plan for ED Patient: Disposition: Home or Assisted Living Chief Complaint: Abd Pain Instructions: Colostomy: Answers to Common Questions, ED Chest Pain Atypical Unkn Cause [facility] [[facility]] - Additional Instructions: Follow-up with your surgeon as scheduled.
[2018-03-31 23:02] VITALS: BP 153/67; PULSE 96; RESP 16; O2SAT 96
[2018-03-31 23:03] VITALS: BP 153/67; PULSE 96; RESP 16; O2SAT 96
--- OUTSIDE RECORDS SUMMARY | 2018-05-25 01:24 | XMS RPT_ITS ---
:1950 Author Organization OHIP Support Name Relationship Address Phone NONE TO LIST PER PT Unavailable Unavailable Unavailable MARY KNOTT Unavailable Unavailable + MARY KNOTT Unavailable Unavailable + MARY KNOTT Unavailable Unavailable + MARY KNOTT Unavailable [address] + [place] [address] R Unavailable Unavailable Unavailable MARY KNOTT Unavailable Unavailable + NONE TO LIST Unavailable Unavailable Unavailable MARY KNOTT Unavailable Unavailable + MARY KNOTT Unavailable Unavailable + NONE TO LIST Unavailable Unavailable Unavailable MARY KNOTT Unavailable Unavailable + MARY KNOTT Unavailable Unavailable + MARY KNOTT Unavailable [address] + [place] [address] R Unavailable Unavailable Unavailable MARY KNOTT Unavailable Unavailable + NONE TO LIST Unavailable Unavailable Unavailable MARY KNOTT Unavailable Unavailable + MARY KNOTT Unavailable Unavailable + NONE TO LIST Unavailable Unavailable Unavailable MARY KNOTT Unavailable Unavailable + MARY KNOTT Unavailable Unavailable + NONE TO LIST Unavailable Unavailable Unavailable MARY KNOTT Unavailable Unavailable + MARY KNOTT Unavailable Unavailable + NONE TO LIST Unavailable Unavailable Unavailable MARY KNOTT Unavailable Unavailable + MARY NKOTT Unavailable Unavailable + MARY KNOTT Unavailable [address] + [place] [address] R Unavailable Unavailable Unavailable MARY KNOTT Unavailable Unavailable + NONE TO LIST Unavailable Unavailable Unavailable MARY MAID CLEANING COOKING Unavailable Unavailable + NIKOS MARY Unavailable Unavailable + Rn Cardiovascular Icu, Mary Unavailable Unavailable + MAID CLEANING COOKINGMARY PEREZ Unavailable [address] + [place] [address] R Unavailable Unavailable Unavailable NONE TO LIST Unavailable Unavailable Unavailable MARY MAID CLEANING COOKING Unavailable Unavailable + Nikos Mary Unavailable Unavailable + NIKOSMARY Unavailable [address] + [place] [address] R Unavailable Unavailable Unavailable NONE TO LIST Unavailable Unavailable Unavailable MARY MAID CLEANING COOKING Unavailable Unavailable + Nikos Mary Unavailable Unavailable + NIKOS MARY Unavailable [address] + [place] [address] R Unavailable Unavailable Unavailable MARY KNOTT Unavailable [address] + [place] [address] R Unavailable Unavailable Unavailable NONE TO LIST Unavailable Unavailable Unavailable MARY KNOTT Unavailable Unavailable + NIKOS MARY Unavailable Unavailable + Nikos Mary Unavailable Unavailable + NIKOS MARY Unavailable [address] + [place] [address] R Unavailable Unavailable Unavailable NIKOSMARY Unavailable [address] + [place] [address] R Unavailable Unavailable Unavailable MARY KNOTT Unavailable [address] + [place] [address] R Unavailable Unavailable Unavailable NONE TO LIST Unavailable Unavailable Unavailable MARY KNOTT Unavailable Unavailable + Mary Knott Unavailable Unavailable + NIKOS MARY Unavailable [address] + [facility] [place] [address] R Unavailable Unavailable Unavailable NONE TO LIST Unavailable Unavailable Unavailable MARY KNOTT Unavailable Unavailable + Mary Knott Unavailable Unavailable + MARYBETH KNOTT Unavailable Unavailable + MARYBETH KNOTT Unavailable Unavailable + MARYBETH KNOTT Unavailable Unavailable + NONE TO LIST Unavailable Unavailable Unavailable MARY KNOTT Unavailable Unavailable + Mary Knott Unavailable Unavailable + MARY KNOTT Unavailable [address] + [place] [address] R Unavailable Unavailable Unavailable NONE TO LIST Unavailable Unavailable Unavailable MARY KNOTT Unavailable Unavailable + Mary Knott Unavailable Unavailable + MARY KNOTT Unavailable [address] + [place] [address] R Unavailable Unavailable Unavailable LISETH KNOTT Unavailable [address] + [place] [address] R Unavailable Unavailable Unavailable LISETH KNOTT Unavailable [address] + [place] [address] R Unavailable Unavailable Unavailable NONE TO LIST Unavailable Unavailable Unavailable MARY KNOTT Unavailable Unavailable + Mary Knott Unavailable Unavailable + NONE TO LIST Unavailable Unavailable Unavailable MARY KNOTT Unavailable Unavailable + Mary Knott Unavailable Unavailable + Mary Knott Unavailable Unavailable + ' Unavailable [address] + [place] [address] NONE TO LIST Unavailable Unavailable Unavailable MARY KNOTT Unavailable Unavailable + Mary Knott Unavailable Unavailable + NONE TO LIST Unavailable Unavailable Unavailable MARY KNOTT Unavailable Unavailable + MARYBETH KNOTT Unavailable Unavailable + NONE TO LIST Unavailable Unavailable Unavailable MARY KNOTT Unavailable Unavailable + LISETH KNOTT Unavailable [address] + [place] [address] R Unavailable Unavailable Unavailable NONE TO LIST Unavailable Unavailable Unavailable MARY KNOTT Unavailable Unavailable + Care Team Providers Name Role Phone IMCA Primary Care Unavailable MINE PROCTOR Attending Unavailable IMCA Primary Care Unavailable GENE MEJÍA A Consulting Unavailable MD SABRINA SORENSEN Admitting Unavailable JAROCHO DOUGHERTY Attending Unavailable KVNG HUI Attending Unavailable IMCA Primary Care Unavailable Osman MORELAND Admitting Unavailable LAIQ, ZENAB Consulting Unavailable AWENDER, H S Consulting Unavailable VIRAL, GAMAL Consulting Unavailable IMCA Primary Care Unavailable IMCA Admitting Unavailable MARTHA EWING S Attending Unavailable KYMFRANCHESCA BEEBEK A Consulting Unavailable VIRAL, GAMAL Consulting Unavailable IMCA Primary Care Unavailable KARL MELENDEZ Admitting Unavailable MD ABHAY YODER Attending Unavailable RATNA BHATT Consulting Unavailable IMCA Primary Care Unavailable LASH-RITTER, TAYLOR M Admitting Unavailable LASH-RITTER TAYLOR M Attending Unavailable IMCA Primary Care Unavailable PONCHO BARRY Attending Unavailable IMCA Primary Care Unavailable LORRAINE BIRCH Attending Unavailable GENE MEJÍA A Consulting Unavailable IMCA Primary Care Unavailable KAJAL LAURENT Attending Unavailable IMCA Primary Care Unavailable Osman AHN Admitting Unavailable RATNA BHATT Consulting Unavailable MARANDA OMER Attending Unavailable ANEUDY RAE Consulting Unavailable IMCA Primary Care Unavailable MARANDA OMER Admitting Unavailable GENE MEJÍA A Consulting Unavailable JAROCHO DOUGHERTY Attending Unavailable JOHNNY CAMARGO Consulting Unavailable IMCA Primary Care Unavailable TOÑITO LACEY Admitting Unavailable JOHNNY CAMARGO Consulting Unavailable Anneliese SANCHEZ Attending Unavailable IMCA Primary Care Unavailable Osman MORELAND Admitting Unavailable GENE MEJÍA A Consulting Unavailable Osman PALMER Attending Unavailable Osman ALMONTE Consulting Unavailable Osman BENAVIDES Consulting Unavailable Benton Gonzales Attending Unavailable RONALD PATEL Attending Unavailable Mj, Dr. Neisha Hanley Referring Unavailable Edgar, Dr. Cruz Attending Unavailable MICHAEL MOREL Attending Unavailable Lareau, Dr. Sergio Phelps Attending Unavailable HAYDOUR, QUSAY Admitting Unavailable KVNG HUI Attending Unavailable VIRAL, GAMAL Consulting Unavailable MARTHA EWING Attending Unavailable VIRAL, GAMAL Consulting Unavailable MINE PROCTOR Attending Unavailable HAYDOUR, QUSAY Admitting Unavailable BELINDA PALMER Attending Unavailable BIJAN BENAVIDES Consulting Unavailable QATOÑITO VASQUES Admitting Unavailable JOHNNY CAMARGO Consulting Unavailable STEPHANIE SANCHEZ Attending Unavailable MARANDA OMER Admitting Unavailable JAROCHO DOUGHERTY Attending Unavailable JOHNNY CAMARGO Consulting Unavailable RATNA AHN Admitting Unavailable MARANDA OMER Attending Unavailable ANEUDY RAE Consulting Unavailable KAJAL LAURENT Attending Unavailable MANISH OTT (RES) Admitting Unavailable MANISH OTT (RES) Attending Unavailable BRITNEY WATERS Consulting Unavailable EYAL-LORRAINE FERRELL Attending Unavailable NORMAN MEJÍAAYAK Wali Consulting Unavailable SORENSEN, NAUHAR Admitting Unavailable KYMNORMAN BEEBEAYAK Wali Consulting Unavailable JAROCHO DOUGHERTY Attending Unavailable LASH-RITTER, TAYLOR A Admitting Unavailable LASH-RITTER, TAYLOR A Attending Unavailable KARL MELENDEZ Admitting Unavailable ABHAY YODER (FEL) Attending Unavailable RATNA BHATT Consulting Unavailable Primay Care Physicia, No Primary Care Unavailable Lenin Stephen Attending Unavailable Torsten Garcia [facility] Chele Smith Attending [facility] Unavailable Gabriel Mandujano Attending Unavailable Chele Smith Attending Unavailable Chele Smith Referring Unavailable [facility] Unavailable Chele Smith Attending [facility] Un[facility] Gabriel Mandujano Attending [facility] Unavailable Milana Gaytan Attending [facility] Unavailable Bart Perry Attending [facility] Unavailable Verenice Shell Attending [facility] Unavailable Torsten Garcia Attending [facility] Unavailable Naomie Koenig Attending [facility] Unavailable Chele Smith Attending [facility] Gabriel Mandujano [facility]ending [facility] Un[facility] Hue Peters Attending [facility] Unavailable Verenice Shell Attending Unavailable SYLVESTER, BRAYDEN Admitting Unavailable MEGHAN IBRAHIM Attending Unavailable NIKI MONGE Referring Unavailable NIKI MONGE Attending Unavailable RANJIT, NITA Referring Unavailable VIRAL ORDONEZ (RES) Attending Unavailable RANJIT, NITA Referring Unavailable GORGUN, I RIOS Attending Unavailable RANJIT, NITA Referring Unavailable RANJIT, NITA Referring Unavailable COURTNEY MALLORY Attending Unavailable GORGUN, I RIOS Admitting Unavailable GORGUN, I RIOS Attending Unavailable MIKE ODELL Attending Unavailable LINA RICH Admitting Unavailable GORGUN, I RIOS Attending Unavailable BART OLVERA Attending Unavailable BHAMA, HANNAH Admitting Unavailable BHAMA, HANNAH Attending Unavailable GABRIEL MANDUJANO Referring Unavailable BHAMA, HANNAH Referring Unavailable WOO VALDOVINOS Attending Unavailable WOO VALDOVINOS Attending Unavailable CASSI SOLANO Attending Unavailable JESUS ROJAS Attending Unavailable BEATA ROCHA Attending Unavailable GORODESKI, EIRAN Z Admitting Unavailable GUERO BUNN Attending Unavailable GORODESKI, EIRAN Z Referring Unavailable [facility] Primary Care Unavailable [facility] Unavailable [facility] Primary Care Unavailable [facility] Primary Care Unavailable [facility] Primary Care Unavailable Fernie Segundo Admitting Unavailable Sarah Mauro Attending Unavailable [facility] Primary Care Unavailable [facility] Unavailable KASSANDRA DEL CASTILLO Attending Unavailable [facility] Referring Unavailable [facility] Primary Care Unavailable HODAN WOO MD Attending Unavailable CHERISE CHAVEZ MD Referring Unavailable MAREK WASHINGTON MD Attending Unavailable [facility] Primary Care Unavailable MAREK WASHINGTON MD Attending Unavailable [facility] Primary Care Unavailable NONE Referring Unavailable NONE Primary Care Unavailable Wali TAM Consulting Unavailable MIKE JAIME Attending Unavailable LIZZETH LEWIS Procedure Practitioner Unavailable NONE Primary Care Unavailable MARY VILLAFUERTE Attending Unavailable NONE Primary Care Unavailable NONE Referring Unavailable YO YUN Consulting Unavailable MIKE JAIME Attending Unavailable NICK BOB Attending Unavailable NICK BOB Procedure Practitioner Unavailable NONE Primary Care Unavailable HENRI HARVEY Referring Unavailable ANEUDY SCANLON Consulting Unavailable KAITLYNN NUNES Consulting Unavailable NONE Primary Care Unavailable UNKNOWN, PROVIDER Attending Unavailable NONE Referring Unavailable NONE Primary Care Unavailable HALIMA ROB Attending Unavailable FAVIO, ANEUDY W Primary Care Unavailable JUANA MERLOS (IMS) Attending Unavailable UNKNOWN, PROVIDER Consulting Unavailable FEARING, ANEUDY W Primary Care Unavailable NGOC EAST Attending Unavailable FEARING, ANEUDY W Referring Unavailable FEARING, ANEUDY W Primary Care Unavailable FEARING, ANEUDY W Referring Unavailable NICOLA MALIK (IMS) Helen Attending Unavailable Wali TAM Consulting Unavailable UNKNOWN, PROVIDER Procedure Practitioner Unavailable FEARING, ANEUDY W Primary Care Unavailable LUZ MARIA BADILLO Attending Unavailable FEARING, ANEUDY W Referring Unavailable ELAMIN, JUANA (IMS) Attending Unavailable UNKNOWN, PROVIDER Consulting Unavailable FEARING, ANEUDY W Primary Care Unavailable FEARING, ANEUDY W Referring Unavailable FIORDALIZA ANDERSON Consulting Unavailable MARCO GOMEZ Attending Unavailable NONE Primary Care Unavailable ANEUDY SCANLON Consulting Unavailable NONE Primary Care Unavailable UNKNOWN, PROVIDER Attending Unavailable NONE Referring Unavailable NONE Primary Care Unavailable SYDNEY, NILE Referring Unavailable Tracey Wiggins Attending Unavailable Wali TAM Consulting Unavailable NEISHA JONES Procedure Practitioner Unavailable AALIYAH DAN Consulting Unavailable RAE PEACOCK Consulting Unavailable NONE Primary Care Unavailable UNKNOWN, PROVIDER Attending Unavailable NONE Referring Unavailable JONATHON MAJANO Consulting Unavailable VICKIE MONTGOMERY Consulting Unavailable NONSTAFF, PHYSICIAN Primary Care Unavailable ANEUDY HERRERA Attending Unavailable YO YUN Consulting Unavailable TRACEY METCALF (IMS) Consulting Unavailable NONSTAFF, PHYSICIAN Primary Care Unavailable LINDSAY JAIME Attending Unavailable NONSTAFF, PHYSICIAN Referring Unavailable SYDNEY, NILE Referring Unavailable SYDNEY, NILE Primary Care Unavailable LISA ODELL Attending Unavailable EDGAR, SANEKA Consulting Unavailable BOBANGA, IULIANA Consulting Unavailable UNKNOWN, PROVIDER Attending Unavailable SARCAROL GALEANA, AKHIL S Primary Care Unavailable TENISHA GALEANA, AKHIL S Primary Care Unavailable AKHIL JAMISON S Referring Unavailable ANEUDY HERRERA Attending Unavailable UNKNOWN, PROVIDER Consulting Unavailable MAX EVANGELISTA Consulting Unavailable SARAC LISSETT, AKHIL S Primary Care Unavailable HALIMA ROB Attending Unavailable SARCAROL LISSETT, AKHIL S Referring Unavailable PROBLEMS PROBLEMS DATE TYPE CONDITION / CODE ATTENDING STATUS SOURCE Active Hypokalemia / ABHAY YODER Active [facility] E87.6(ICD-10) (FEL) Clinic Other [facility] Repository Active Chest pain, ABHAY YODER [facility] 8 unspecified / (FEL) Clinic Other R07.9(ICD-10) [facility] Repository Active Dermatitis ABHAY YODER [facility] 8 unspecified / (FEL) Clinic Other L30.9(ICD-10) [facility] Repository Admitting Unknown / MD DORIS Active [facility] 8 diagnosis UNK(Unknown) [facility] Repository Final DORSALGIA, BULGRIN, HALIMA [facility] 8 Diagnosis UNSPECIFIED [facility] M54.9(ICD-10) Hospital Repository Final OTHER CHRONIC PAIN / BULGRIN, HALIMA Active [facility] 8 Diagnosis G89.29(ICD-10) [facility] (Discharge) Hospital Repository Final ANXIETY DISORDER, BULGRIN, HALIMA [facility] 8 Diagnosis UNSPECIFIED / [facility] F41.9(ICD-10) Hospital Repository Final MAJOR DEPRESSIVE HALIMA ROB 8 Diagnosis DISORDER, SINGLE [facility] (Discharge) EPISODE, UNSPECIFIED Hospital / F32.9(ICD-10) Repository Final Unspecified Dr. Winston Active [facility] 8 diagnosis abdominal pain / [facility] (discharge) R10.9(ICD-10) Repository Final Parastomal hernia Dr. Winston Active [facility] [address] 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 (discharge) artery w/o ang pctrs Repository / I25.10(ICD-10) Final Presence of cardiac Dr. Winston Active [facility] 8 diagnosis pacemaker / [facility] (discharge) Z95.0(ICD-10) Repository Active Shortness of breath Dr. Winston Active [facility] 8 / R06.02(ICD-10) [facility] Repository Active Cough / R05(ICD-10) Dr. Winston Active [address] Repository Active Upper abdominal CANDIS, Active [facility] pain, unspecified / JAROCHO Clinic Other R10.10(ICD-10) [facility] Repository Final UNSPECIFIED INJURY Unknown Active [facility] 8 Diagnosis OF HEAD, INITIAL [facility] (Discharge) ENCOUNTER / Hospital S09.90XA(ICD-10) Repository Final OBESITY, UNSPECIFIED Unknown [facility] Diagnosis / E66.9(ICD-10) [facility] (Discharge) Hospital Repository Final DISORDER OF THYROID, Unknown Active [facility] 8 Diagnosis UNSPECIFIED / [facility] (Discharge) E07.9(ICD-10) Hospital Repository Final BODY MASS INDEX Unknown Active [facility] 8 Diagnosis (BMI) 29.0-29.9, [facility] (Discharge) ADULT / Hospital Z68.29(ICD-10) Repository Final OTHER COUNCILPERSON Unknown [facility] 8 Diagnosis (CURRENT) DRUG [facility] (Discharge) THERAPY / Hospital Z79.899(ICD-10) Repository Final STRIKING AGAINST OTH Unknown [facility] 8 Diagnosis OBJECT W SUBSEQUENT [facility] (Discharge) FALL, INIT ENCNTR / Hospital W18.09XA(ICD-10) Repository Final OTHER THYROTOXICOSIS LISA ODELL Active [facility] 8 Diagnosis WITHOUT THYROTOXIC [facility] (Discharge) CRISIS OR STORM / Hospital E05.80(ICD-10) Repository Final ANEMIA, UNSPECIFIED LISA ODELL Active [facility] Diagnosis / D64.9(ICD-10) [facility] (Discharge) Hospital Repository Final PREDIABETES / LISA ODELL Active [facility] 8 Diagnosis R73.03(ICD-10) [facility] (Discharge) Hospital Repository Final DO NOT RESUSCITATE / LISA ODELL Active [facility] 8 Diagnosis Z66(ICD-10) [facility] (Discharge) Hospital Repository Active Acute ischemic heart NA Active [facility] disease, unspecified Clinic Main / I24.9(ICD-10) [facility] Repository Active Abdominal aortic GUERO BUNN Active [facility] aneurysm, without Clinic Main rupture / [facility] I71.4(ICD-10) Repository Active Encounter for GUERO BUNN Active [facility] 8 attention to Clinic Main colostomy / [facility] Z43.3(ICD-10) Repository Active Atherosclerosis of GUERO BUNN Active [facility] 8 coronary artery Clinic Main bypass graft(s) [facility] without angina Repository pectoris / I25.810(ICD-10) Active Essential (primary) GUERO BUNN Active [facility] hypertension / Clinic Main I10(ICD-10) [facility] Repository Active Hyperlipidemia, BEBEGUERO Active [facility] unspecified / Clinic Main E78.5(ICD-10) [facility] Repository Active Obstructive sleep BEBEGUERO HOANG Active [facility] 8 apnea (adult) Clinic Main (pediatric) / [facility] G47.33(ICD-10) Repository Active Other chest pain / BEBE GUERO Active [facility] 8 R07.89(ICD-10) Clinic Main [facility] Repository Active Other nonspecific GUERO BUNN Active [facility] 8 abnormal finding of Clinic Main lung field / [facility] R91.8(ICD-10) Repository Active Nontoxic single BEBE GUERO Active [facility] thyroid nodule / Clinic Main E04.1(ICD-10) [facility] Repository Active Chronic systolic EYAL-QUICHO, 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 LORRAINE Clinic Other failure / [facility] I50.22(ICD-10) Repository Active Solitary pulmonary EYAL-QUICHO, 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 / LORRAINE Clinic Other R91.1(ICD-10) [facility] Repository Active Ischemic EYAL-QUICHO, Active [facility] cardiomyopathy / LORRAINE Clinic Other I25.5(ICD-10) [facility] Repository Active Chronic pain EYAL-QUICHO, Active [facility] syndrome / LORRAINE Clinic Other G89.4(ICD-10) [facility] Repository Active Presence of cardiac EYAL-QUICHO, Active [facility] 8 pacemaker / [facility] Clinic Other Z95.0(ICD-10) [facility] Repository Admitting ACUTE GASTRITIS ANEUDY HERRERA Diagnosis WITHOUT BLEEDING / [facility] K29.00(ICD-10) Hospital Repository Final ACUTE GASTRITIS FU, ANEUDY MORGAN Active [facility] Diagnosis WITHOUT BLEEDING / [facility] (Dis[facility]) K29.00(ICD-10) Hospital Repository Final CHRONIC COMBINED FU, ANEUDY CATH[facility] Diagnosis SYSTOLIC AND [facility] (Dis[facility]) DIASTOLIC HRT FAIL / Hospital I50.42(ICD-10) Repository Final DILATED FU, ANEUDY CATHY [facility] Diagnosis CARDIOMYOPATHY / [facility] (Discharge) I42.0(ICD-10) Hospital Repository Final ISCHEMIC FU, ANEUDY CATHY [facility] 8 Diagnosis CARDIOMYOPATHY / [facility] (Discharge) I25.5(ICD-10) Hospital Repository Admitting GASTRIC ULCER, UNSP Tracey Wiggins Diagnosis ACUTE OR CHRONIC, [facility] W/O HEMOR OR PERF / Hospital K25.9(ICD-10) Repository Final GASTRIC ULCER, JOHNP Tracey Wiggins Diagnosis ACUTE OR CHRONIC, [facility] (Discharge) W/O HEMOR OR PERF / Hospital K25.9(ICD-10) Repository Final DVRTCLOS OF INTESTFeliciano Gregory Active [facility] 8 Diagnosis PART UNSP, W/O PERF [facility] (Discharge) OR ABSCESS W BLEED / Hospital K57.91(ICD-10) Repository Final ENCOUNTER FOR ADJUST Tracey Wiggins Diagnosis AND MGMT OTH PRT [facility] (Discharge) CARDIAC PACEMAKER / Hospital Z45.018(ICD-10) Repository Final DYSPHAGIA, Tracey Wiggins Diagnosis UNSPECIFIED / [facility] (Discharge) R13.10(ICD-10) Hospital Repository Final THYROTXCOSIS W TOXIC Tracey Wiggins Diagnosis SING THYROID NODULE [facility] (Discharge) W/O THYROTXC CRISIS Hospital / E05.10(ICD-10) Repository Final SLEEP APNEA, Tracey Wiggins Diagnosis UNSPECIFIED / [facility] (Discharge) G47.30(ICD-10) Hospital Repository Active Nicotine dependence, NAMRATA Active [facility] unspecified, MANISH (RES) Clinic Other uncomplicated / [facility] F17.200(ICD-10) Repository Active Opioid use, NAMRATA, Active [facility] 8 unspecified, RAVKIRAN (RES) Clinic Other uncomplicated / [facility] F11.90(ICD-10) Repository Active Acute on chronic NAMRATA Active [facility] (congestive) heart [facility] failure / Repository I50.23(ICD-10) Admitting UNSPECIFIED Unknown Active [facility] 8 Diagnosis ABDOMINAL HERNIA [facility] WITHOUT OBSTRUCTION Hospital OR GANGRENE / Repository K46.9(ICD-10) Final UNSPECIFIED Unknown Active [facility] 8 Diagnosis ABDOMINAL HERNIA [facility] (Discharge) WITHOUT OBSTRUCTION Hospital OR GANGRENE / Repository K46.9(ICD-10) Final NONTOXIC SINGLE Unknown Active [facility] 8 Diagnosis THYROID NODULE / [facility] (Discharge) E04.1(ICD-10) Hospital Repository Final PERSONAL HISTORY OF MARCO GOMEZ Diagnosis OTHER DISEASES OF [facility] (Discharge) THE DIGESTIVE SYSTEM Hospital / Z87.19(ICD-10) Repository Final FALL IN (INTO) MARCO GOMEZ Diagnosis SHOWER OR EMPTY [facility] (Discharge) BATHTUB, INITIAL Hospital ENCOUNTER / Repository W18.2XXA(ICD-10) Active Other complications FERTELJESUS S Active [facility] of colostomy / Clinic Main K94.09(ICD-10) [facility] Repository Active Nausea with FERTEL, JESUS S Active [facility] vomiting, Clinic Main unspecified / [facility] R11.2(ICD-10) Repository Active Unspecified LAURENT, Active [facility] abdominal pain / KAJAL KATHY Clinic Other R10.9(ICD-10) [facility] Repository Active Contusion of VAN BUREN, Active [facility] 8 unspecified front [facility] Clinic Other wall of thorax, [facility] initial encounter / Repository S20.219A(ICD-10) Unknown K46.9 - Unspecified Verenice Shell Active [facility] 8 abdominal hernia [facility] without obstruction Hospital or gangrene / Repository K46.9(ICD-10) Admitting SPINAL STENOSIS, ELAMIN, KHALID Active [facility] 8 Diagnosis CERVICAL REGION / (IMS) [facility] M48.02(ICD-10) Hospital Repository Final SPINAL STENOSIS, JUANA MERLOS Active [facility] 8 Diagnosis CERVICAL REGION / ([facility] (Discharge) M48.02(ICD-10) Hospital Repository Final SPINAL STENOSIS, ELAMIN JUANA Active [facility] 8 Diagnosis LUMBAR REGION ([facility] (Discharge) WITHOUT NEUROGENIC Hospital RL / Repository M48.061(ICD-10) Final HYPOKALEMIA / ELAG KEARNEYALILokesh Active Jones 8 Diagnosis E87.6(ICD-10) ([facility] (Discharge) Hospital Repository Final OTHER CHRONIC ELAMINJUANA Active [facility] 8 Diagnosis POSTPROCEDURAL PAIN ([facility] (Discharge) / G89.28(ICD-10) Hospital Repository Final OCCLUSION AND ELJUANA KEARNEY Active Jones 8 Diagnosis STENOSIS OF ([facility] (Discharge) UNSPECIFIED CAROTID Hospital ARTERY / Repository I65.29(ICD-10) Final FALL SAME LEV FROM UJANA MERLOS Active [facility] 8 Diagnosis SLIP/TRIP W/O STRIKE ([facility] (Discharge) AGAINST OBJECT, INIT Hospital / W01.0XXA(ICD-10) Repository Final ALLERGY STATUS TO ELJUANA KEARNEY Active Jones 8 Diagnosis OTH DRUG/MEDS/BIOL ([facility] (Discharge) SUBST STATUS / Hospital Z88.8(ICD-10) Repository Unknown R10.30 - Lower SchwigerBart Active [place] 8 abdominal pain, Community unspecified / Hospital R10.30(ICD-10) Repository Active Enteroptosis / SIERRA LEONEAN, CASSI Active Shellie 8 K63.4(ICD-10) Clinic Main [place] Repository Active Heart failure, SIERRA LEONEAN, CASSI Active [place] 8 unspecified / Clinic Main I50.9(ICD-10) [place] Repository Unknown Z93.3 - Colostomy Milana Gaytan Active [place] 8 status / Community Z93.3(ICD-10) Hospital Repository Final WEAKNESS / LOWEREXF Active Robert 8 Diagnosis R53.1(ICD-10) [facility] (Discharge) Hospital Repository Admitting OTHER CHEST PAIN / NICOLA MALIK Active Jones 8 Diagnosis R07.89(ICD-10) ([facility]) [facility] Hospital Repository Final TOBACCO ABUSE NICOLA MALIK Diagnosis COUNSELING / ([facility] (Discharge) Z71.6(ICD-10) Hospital Repository Final PATIENT'S HELENA NICOLA Mckinney Diagnosis NONCOMPLIANCE W OTH ([facility]) [facility] (Discharge) MEDICAL TREATMENT Hospital AND REGIMEN / Repository Z91.19(ICD-10) Active Other specified WOO VALDOVINOS 8 disorders of teeth Clinic Main and supporting [place] structures / Repository K08.89(ICD-10) Final UNSP INTRACRANIAL [facility] Diagnosis INJURY W LOC OF [facility] (Discharge) DURATION, INIT / Hospital S06.9X9A(ICD-10) Repository Final FALL SAME LEV FROM [facility] Diagnosis SLIP/TRIP W STRIKE [facility] (Discharge) AGNST OT OBJECT, Hospital INIT / Repository W01.198A(ICD-10) Final CERVICALGIA / [facility] Diagnosis M54.2(ICD-10) [facility] (Discharge) Hospital Repository Final PAIN IN THORACIC [facility] Diagnosis SPINE / [facility] (Discharge) M54.6(ICD-10) Hospital Repository Final LOW BACK PAIN / [facility] Diagnosis M54.5(ICD-10) [facility] (Discharge) Hospital Repository Final OTHER INJURY OF [facility] Diagnosis UNSPECIFIED BODY [facility] (Discharge) REGION, INITIAL Hospital ENCOUNTER / Repository T14.8XXA(ICD-10) Final SHORTNESS OF BREATH [facility] Diagnosis / R06.02(ICD-10) [facility] (Discharge) Hospital Repository Unknown R10.9 - Unspecified Chele Smith 8 abdominal pain / Community R10.9(ICD-10) Hospital Repository Final CHRONIC DIASTOLIC ELAMIN, KHALID Valentin Mckinney Diagnosis (CONGESTIVE) HEART ([facility] (Discharge) FAILURE / Hospital I50.32(ICD-10) Repository Final NICOTINE DEPENDENCE, JUANA MERLOS Active Robert 8 Diagnosis OTHER TOBACCO (IMS) [facility] (Discharge) PRODUCT, Hospital UNCOMPLICATED / Repository F17.290(ICD-10) Active Mixed hyperlipidemia STONE, MARANDA J Active [place] 8 / E78.2(ICD-10) Clinic Other [place] Repository Active Presence of STONE, MARANDA J Active [place] 8 aortocoronary bypass Clinic Other graft / [place] Z95.1(ICD-10) Repository Active Presence of cardiac STONE, MARANDA J Active [place] 8 and vascular implant Clinic Other and graft, [place] unspecified / Repository Z95.9(ICD-10) Unknown K31.89 - Other Gabriel Mandujano Active [place] 8 diseases of stomach Community and duodenum / Hospital K31.89(ICD-10) Repository Active Colostomy status / NA Active [place] [id number] Z93.3(ICD-10) Clinic Main [place] Repository Final INCISIONAL HERNIA HALIMA ROB Active Robert 8 Diagnosis WITHOUT OBSTRUCTION [facility] (Discharge) OR [place]ANGR[place] / Hospital K43.2(ICD-10) Repository Active Other complications BART OLVERA Active [place] 8 of enterostomy / Clinic Main K94.19(ICD-10) [place] Repository Active Unspecified GORGUN, I RIOS [facility] 8 osteoarthritis, Clinic Main unspecified site / [place] M19.90(ICD-10) Repository Active Generalized GORGUN, I RIOS [facility] 8 abdominal pain / Clinic Main R10.84(ICD-10) [place] Repository Active Unspecified fall, FLORO, STEPHANIE Active [place] 8 initial encounter / [facility] Clinic Other W19.XXXA(ICD-10) [place] Repository Active Dorsalgia, FLORO, STEPHANIE Active [place] 8 unspecified / [facility] Clinic Other M54.9(ICD-10) [place] Repository Active Cervicalgia / FLORO STEPHANIE Active [place] 8 M54.2(ICD-10) [facility] Clinic Other [place] Repository Active Low back pain / FLORO, STEPHANIE Active [place] 8 M54.5(ICD-10) [facility] Clinic Other [place] Repository Active Other chronic pain / FLORO, STEPHANIE Active [place] 8 G89.29(ICD-10) [facility] Clinic Other [place] Repository Admitting UNSPECIFIED Unknown Active Jones 8 Diagnosis ABDOMINAL PAIN / [facility] R10.9(ICD-10) Hospital Repository Final UNSPECIFIED Unknown Active Jones 8 Diagnosis ABDOMINAL PAIN / [facility] ([facility] R10.9(ICD-10) Hospital Repository Final CHEST PAIN, Unknown Active Jones 8 Diagnosis UNSPECIFIED / [facility] R07.9(ICD-10) Hospital Repository Final PARASTOMAL HERNIA Unknown Active [facility] 8 Diagnosis WITHOUT OBSTRUCTION [facility] ([facility]) OR [place] / Hospital K43.5(ICD-10) Repository Active Atherosclerotic NA Active [place] 8 heart disease of Clinic Main [place] coronary [place] artery without Repository angina pectoris / I25.10(ICD-10) Active Melena / VALLURI, Active [place] 8 K92.1(ICD-10) BELINDA Clinic Other [place] Repository Active Colostomy SANTOSH, Active [place] 8 malfunction / CHRISTOPHER J Clinic Other K94.03(ICD-10) [place] Repository Active Diverticulitis of [facility], [facility] Active [place] 8 intestine, part Clinic Other unspecified, without [place] perforation or Repository abscess without bleeding / K57.92(ICD-10) Active Parastomal hernia ALI, NOAMAN Active [place] 8 without obstruction Clinic Other or gangrene / [place] K43.5(ICD-10) Repository Active Ventral hernia [facility]I, [facility] Active [place] 8 without obstruction Clinic Other or gangrene / [place] K43.9(ICD-10) Repository Final Colostomy status / Abourjeily, Active [facility] 8 diagnosis Z93.3(ICD-10) [facility] (discharge) Repository Final Benign prostatic Abourjeily, Active [facility] 8 diagnosis hyperplasia without [facility] (discharge) lower urinry tract Repository symp / N40.0(ICD-10) Admitting OTHER COMPLICATIONS NICK BOB Active Robert 8 Diagnosis OF COLOSTOMY / [facility] K94.09(ICD-10) Hospital Repository Final OTHER COMPLICATIONS NICK BOB Diagnosis OF COLOSTOMY / [facility] (Discharge) K94.09(ICD-10) Hospital Repository Final CYST OF KIDNEY, NICK BOB 8 Diagnosis ACQUIRED / [facility] (Discharge) N28.1(ICD-10) Hospital Repository Active Atherosclerotic GORGUN, I RIOS Active [place] 8 heart disease of Clinic Main [place] coronary [place] artery with Repository unspecified angina pectoris / I25.119(ICD-10) Active Encounter for other GORGUN, I RIOS Active Shellie 8 preprocedural Clinic Main examination / [place] Z01.818(ICD-10) Repository Final ATHSCL HEART DISEASE MIKE JAIME Diagnosis OF [place] COR ART W [facility] (Discharge) UNSP ANG PCTRS / Hospital I25.119(ICD-10) Repository Final PAIN DUE TO OTHER MIKE JAIME Active Robert 8 Diagnosis INTERNAL PROSTH [facility] (Discharge) DEV/GRFT, INIT / Hospital T85.848A(ICD-10) Repository Final ACQUIRED ABSENCE OF MIKE JAIME Active Robert 8 Diagnosis OTHER SPECIFIED [facility] ([facility]) PARTS OF DIGESTIVE Hospital TRACT / Repository Z90.49(ICD-10) Final 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 Active Robert 8 Diagnosis INFARCTION / [facility] (Discharge) I25.2(ICD-10) Hospital Repository Final PRESENCE OF CORONARY MIKE JAIME Active Robert 8 Diagnosis ANGIOPLASTY IMPLANT [facility] (Discharge) AND GRAFT / Hospital Z95.5(ICD-10) Repository Final COUNCILPERSON (CURRENT) MIKE JAIME Active Jones 8 Diagnosis USE OF [facility] (Discharge) ANTITHROMBOTICS/ANTI Hospital PLATELETS / Repository Z79.02(ICD-10) Active Influenza due to VKNG HUI Active [place] 8 unidentified Clinic Other influenza virus with [place] other respiratory Repository manifestations / J11.1(ICD-10) Active Disorder of kidney NA Active [place] 8 and ureter, Clinic Main unspecified / [place] N28.9(ICD-10) Repository Admitting CHEST PAIN, MARY VILLAFUERTE 8 Diagnosis UNSPECIFIED / [facility] R07.9(ICD-10) Hospital Repository Final NAUSEA / MARY VILLAFUERTE 8 Diagnosis R11.0(ICD-10) [facility] (Discharge) Hospital Repository Final HYPERTENSIVE HEART MARY VILLAFUERTE Diagnosis DISEASE WITH HEART [facility] (Discharge) FAILURE / Hospital I11.0(ICD-10) Repository Final UNSPECIFIED ASTHMA, MARY VILLAFUERTE 8 Diagnosis UNCOMPLICATED / [facility] (Discharge) J45.909(ICD-10) Hospital Repository Final NICOTINE DEPENDENCE, MARY VILLAFUERTE 8 Diagnosis UNSPECIFIED, [facility] (Discharge) UNCOMPLICATED / Hospital F17.200(ICD-10) Repository Final PRESENCE OF CARDIAC MARY VILLAFUERTE 8 Diagnosis PACEMAKER / [facility] (Discharge) Z95.0(ICD-10) Hospital Repository Final SNF (CURRENT) MARY VILLAFUERTE 8 Diagnosis USE OF ASPIRIN / [facility] (Discharge) Z79.82(ICD-10) Hospital Repository Unknown R07.89 - Other chest Lenin Stephen 8 pain / Community R07.89(ICD-10) Hospital Repository Final OTHER CHEST PAIN / MIKE JAIME Active Robert 7 Diagnosis R07.89(ICD-10) [facility] (Discharge) Hospital Repository Final ATHSCL HEART DISEASE MIKE JAIME Active Robert 7 Diagnosis OF [place] CORONARY [facility] (Discharge) ARTERY W/O ANG [facility] Hospital / I25.10(ICD-10) Repository Final HEART FAILURE, MIKE JAIME Active Jones 7 Diagnosis UNSPECIFIED / [facility] (Discharge) I50.9(ICD-10) Hospital Repository Final PAIN DUE TO CARDIAC MIKE JAIME Active Jones 7 Diagnosis PROSTH DEV/GRFT, [facility] (Discharge) INITIAL ENCOUNTER / Hospital T82.847A(ICD-10) Repository Final CHRONIC OBSTRUCTIVE MIKE JAIME Active [facility] 7 Diagnosis PULMONARY DISEASE, [facility] (Discharge) UNSPECIFIED / Hospital J44.9(ICD-10) Repository Final HYPERLIPIDEMIA, MIKE JAIME Active [facility] 7 Diagnosis UNSPECIFIED / [facility] E78.5(ICD-10) Hospital Repository Final NICOTINE DEPENDENCE, MIKE JAIME Active Jones Gab Diagnosis CIGARETTES, [facility] (Discharge) UNCOMPLICATED / Hospital F17.210(ICD-10) Repository Final ESSENTIAL (PRIMARY) MIKE JAIME Active Jones Gab Diagnosis HYPERTENSION / [facility] (Discharge) I10(ICD-10) Hospital Repository Final DVRTCLOS OF INTEST, MIKE JAIME Active Jones 7 Diagnosis PART UNSP, W/O PERF [facility] (Discharge) OR ABSCESS W/O BLEED Hospital / K57.90(ICD-10) Repository Final PRESENCE OF MIKE JAIME Active Robert De Guzman Diagnosis AORTOCORONARY BYPASS [facility] (Discharge) GRAFT / Hospital Z95.1(ICD-10) Repository Final COLOSTOMY STATUS / MIKE JAIME Active Robert De Guzman Diagnosis Z93.3(ICD-10) [facility] (Discharge) Hospital Repository Final OBSTRUCTIVE SLEEP MIKE JAIME Active Jones 7 Diagnosis APNEA (ADULT) [facility] (Discharge) (PEDIATRIC) / Hospital G47.33(ICD-10) Repository Active Unknown / NIKI MONGE Active [place] 7 UNK(Unknown) Clinic Main [place] Repository Active Unspecified systolic MEGHAN IBRAHIM Active [place] 7 (congestive) heart Clinic Main failure / [place] I50.20(ICD-10) Repository PROCEDURES PROCEDURES DATE CODE DESCRIPTION STATUS SOURCE 04/05/2018 91385([facility] 98878 Completed [facility] CPT-4) Hospitals Repository 04/05/2018 77638([facility] 11635 Completed [facility] CPT-4) Hospitals Repository 04/05/2018 40250([facility] 43993 Completed [facility] CPT-4) Hospitals Repository 04/05/2018 97510([facility] 15480 Completed [facility] CPT-4) Hospitals Repository 04/05/2018 37521([facility] 49521 Completed [facility] CPT-4) Hospitals Repository 04/05/2018 70363([facility] 60327 Completed [facility] CPT-4) Hospitals Repository 04/05/2018 08671([facility] 93713 Completed [facility] CPT-4) Hospitals Repository 12/13/2017 [id number](ICD-10 EXCISION OF STOMACH, Completed Robert Bravo ) ENDO, DIAGN Hospital Repository 12/13/2017 [id number](ICD-10 INSPECTION OF LOWER Completed [facility] ) INTESTINAL TRACT, EN Hospital Repository 10/19/2017 [id number](ICD-10 MEASURE OF CARDIAC Completed [facility] ) SAMPL & PRESSURE, L Hospital Repository H 10/19/2017 [id number](ICD-10 FLUOROSCOPY OF MULT Completed [facility] ) COR ART USING L [facility] Hospital Repository 10/19/2017 [id number](ICD-10 FLUOROSCOPY OF SING Completed [facility] ) COR A GRAFT USING L Hospital Repository 07/05/2017 65057([facility] 59824 Completed [facility] CPT-4) Hospitals Repository 06/22/2017 [id number](ICD-10 DRAINAGE OF STOMACH Completed [facility] ) WITH DRAINAGE DEVICE Hospital Repository 04/29/2017 [id number](ICD-10 ASSISTANCE WITH Completed [facility] ) RESPIRATORY Hospital Repository VENTILATION, RESULTS RESULTS NURSING PROG Observed: 04/14/2018 Status: COMPLETED Source: [place] 2:44 PM CLINIC OTHER CAMPUS REPOSITORY HNO ID: [id number] Author: Hue (Rn) MITCHELL Arcos Service: (none) Author Type: Registered Nurse Type: Nursing Progress Note Filed: 04/14/2018 2:56 PM Note Text: Nursing Progress Note Patient Name: Maxx Knott Patient Location: [place] [address] [address]* Daily Note: Pt requesting pain meds prior to discharge. Dr Yoder advised of pt request for prescription narcotics. Dr Yoder advised pt to see his PCP about chronic pain meds. No new orders for home percocet given at this time.This information was given to pt. I discussed with pt about asking his PCP for a referral to pain mgt for his chronic pain. Education was provided about opiate drugs and alternatives for treating pain. Pt was medicated for pain with PRN morphine and percocet immediately prior to review of discharge instructions. Pt had told me that his brother would be picking him up to take him home for discharge. After giving discharge instructions, Pt began to dress himself and asked how to get out of here. I told the pt to wait here in the room until transport arrives to take him downstairs. I expressed my concern that I had just medicated him with morphine and percocet and educated him on his need for caution and safety awareness. This note was completed by: MITCHELL Noriega Observed: 04/14/2018 Status: COMPLETED Source: [place] 12:16 PM CLINIC OTHER CAMPUS REPOSITORY HNO ID: [id number] Author: Abhay Yoder Service: Hospital Medicine Author Type: Physician Type: Discharge Summaries Filed: 04/14/2018 12:57 PM Note Text: DISCHARGE SUMMARY PATIENT NAME: Maxx Knott Code Status: Prior Highest Readmission Risk Score: 31 The 30 day readmissions risk score is derived from an internally validated risk model which evaluates patient level characteristics, utilization history, medication orders and lab results up until the day of discharge. Patients with a score of 40 or above are considered highest risk for readmission. Specific patient level drivers will be listed at the bottom of the summary. Admission Information Admission Information ADMIT DATE: 04/13/2018 DISCHARGE DATE: April 14, 2018 MY DOCTORS AND MEDICAL TEAM: My Main Hospital Doctor: Abhay Yoder Primary Care Provider: No primary care provider on file. 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 Presented to [facility] for chest pain. It was also noted that he had some T-wave inversions, troponins were absolutely negative on admission. Patient was seen by cardiology who did not wish to investigate any further since the patient had multiple investigations in the past. The most recent investigation was cardiac PET scan, which according to cardiology, is incredibly sensitive. It was negative for any ischemia. For this reason, cardiology has signed off on the patient and was okay to send the patient home on the regular medication with no adjustment. Based on this recommendation of discharge the patient is medically stable condition. Discharge diagnoses 1 chronic chest pain 2-tobacco use 3-coronary artery disease 4-hypertension 5-dyslipidemia 6-history of pacemaker Discharge Disposition Home Call Your Doctor If There is an unusual odor from the wound area There is severe pain at the operative site You have a severe headache You have lightheadedness, fainting, or confusion You have persistent nausea/vomiting over 24 hours You have persistent or heavy bleeding You have redness, swelling, pus or drainage from the wound You have swollen glands or cold and clammy skin Your temperature is greater than 101F Follow Up Appointments Follow-Up Appointment With: your primary care physician When: In 1 week Patient/Parents to call for appointment?: Yes FOLLOW-UP APPOINTMENTS ALREADY SCHEDULED WITH A [facility] PROVIDER: No future appointments. ALLERGIES Allergen Reactions - Altaseptic Unknown - Brilinta [Ticagrelo* Unknown - Crestor [Rosuvastat* Myalgia - Hctz [Amiloride-Hyd* Swelling - Moxifloxacin Swelling - Other [place]-3s Unknown brelinta - Ramipril Swelling Other reaction(s): Angioedema Other reaction(s): Facial swelling - Rosuvastatin Other: See Comments - Simvastatin Myalgia, Other: See Comments Other reaction(s): Facial swelling - Voltaren [Diclofena* Unknown DISCHARGE MEDICATION: Current Discharge Medication List CONTINUE these medications which have NOT CHANGED albuterol HFA (PROVENTIL HFA, VENTOLIN HFA) 2 Puffs Inhale 2 Puffs as instructed every 4 hours as needed for Wheezing/Shortness of Breath. amLODIPine (NORVASC) 10 mg Take 10 mg by mouth once daily. aspirin, enteric coated (ASPIRIN, ENTERIC COATED) 81 mg Take 81 mg by mouth once daily. cyclobenzaprine (FLEXERIL) 10 mg Take 10 mg by mouth at bedtime as needed for Muscle Spasm. Associated Diagnoses:Chronic low back pain, unspecified back pain laterality, with sciatica presence unspecified fluticasone (FLONASE) 1 [place] Use 1 [place] in the nose once daily as needed. furosemide (LASIX) 40 mg Take 40 mg by mouth once daily as needed. gabapentin (NEURONTIN) 600 mg Take 600 mg by mouth daily at bedtime. Qty: 90 capsule Refills: 0 Associated Diagnoses:Chronic low back pain, unspecified back pain laterality, with sciatica presence unspecified loratadine 10 mg cap Take 1 capsule every day by oral route as needed losartan (COZAAR) 100 mg Take 100 mg by mouth once daily. metoprolol succinate ER (TOPROL XL) 100 mg Take 100 mg by mouth once daily. Qty: 90 tablet Refills: 4 MULTIVIT WITH IRON,MINERALS (MULTIVITAMIN AND MINERALS ORAL) 1 capsule Take 1 capsule by mouth once daily. nitroglycerin sublingual (NITROSTAT) 0.[address](1) TABLET UNDER TONGUE NEEDED FOR CHEST PAIN. IF NO PAIN RELIEF CALL 911 Qty: 25 tablet Refills: 0 oxyCODONE-acetaminophen (PERCOCET) 2 tablets Take 2 tablets by mouth every 6 hours as needed for Pain. pravastatin (PRAVACHOL) 40 mg Take 40 mg by mouth daily at bedtime. QUEtiapine (SEROquel) 400 mg Take 400 mg by mouth daily at bedtime. Qty: 60 tablet Refills: 0 vitamin B complex (B COMPLEX ORAL) 1 tablet Take 1 tablet by mouth once daily. aluminum-magnesium hydroxide-simethicone (MAALOX,MYLANTA,MAG- AL PLUS) 30 mL Take 30 mL by mouth every 6 hours as needed. Qty: 200 mL Refills: 0 !! COMPOUNDED PRESCRIPTION One Piece Ostomy Pouch Item Type: Coloplast Sensura One Piece Non-Sterile with Window 38-4 1/2'' ?5/Box ICD 10: Prolapsed Stoma K94.09 Qty: 1 Box Refills: 0 !! COMPOUNDED PRESCRIPTION Paste: Convatec Stomahesive 1 tube ICD 10: Prolapsed Stoma K 94.09 Qty: 1 Tube Refills: [address] (PROTONIX) 40 mg Take 40 mg by mouth DAILY (6 AM). Qty: 30 tablet Refills: 0 ranolazine ER (RANEXA) 500 mg Take 500 mg by mouth twice daily. Qty: 60 tablet Refills: 0 !! - Potential duplicate medications found. Please discuss with provider. Discharge Physical Exam: VITAL SIGNS: BP 188/73 Pulse 61 Temp 36.7 ?C (98.1 ?F) (Oral) Resp 18 Ht 172.7 cm (5' 8) Wt 85.5 kg (188 lb 7.9 oz) SpO2 96% BMI 28.66 kg/m? GENERAL: Alert, no distress, cooperative SKIN: Skin color, texture, turgor normal. No rashes or lesions. EYES: PERRLA, EOMI BACK: Back symmetric, Normal curvature, ROM normal, No CVAT. LUNGS: Lungs clear to auscultation, Good diaphragmatic excursion CARDIAC: Normal S1 and S2; no rubs, murmurs, or gallops ABDOMEN: Abdomen soft, non-tender, BS normal, No masses or organomegaly. Colostomy pouch intact, brown stool present. EXTREMITIES: Extremities normal, no deformities, edema, clubbing or skin discoloration. Good capillary refill., No ulcers WBC (thou/cmm) Date Value 04/14/2018 10.83 (H) RBC (mil/cmm) Date Value 04/14/2018 4.39 (L) Hemoglobin (g/dL) Date Value 02/12/2018 14.7 HGB (g/dL) Date Value 04/14/2018 13.6 (L) Hematocrit (%) Date Value 04/14/2018 41.0 MCV (fl) Date Value 04/14/2018 93.4 MCH (pg) Date Value 04/14/2018 31.0 MCHC (%) Date Value 04/14/2018 33.2 RDW-CV (%) Date Value 02/12/2018 14.4 Platelet Count (thou/cmm) Date Value 04/14/2018 275 MPV (fl) Date Value 04/14/2018 10.6 Glucose (mg/dL) Date Value 04/14/2018 122 (H) BUN (mg/dL) Date Value 04/14/2018 16 Creatinine (mg/dL) Date Value 04/14/2018 0.98 Sodium (mEq/L) Date Value 04/14/2018 143 Potassium (mEq/L) Date Value 04/14/2018 3.6 Chloride (mEq/L) Date Value 04/14/2018 106 CO2 (mEq/L) Date Value 04/14/2018 32 Protein, Total (g/dL) Date Value 04/13/2018 7.8 Albumin (g/dL) Date Value 04/13/2018 3.9 Calcium (mg/dL) Date Value 04/14/2018 9.1 Alkaline Phosphatase (U/L) Date Value 04/13/2018 95 Bilirubin, Total (mg/dL) Date Value 04/13/2018 0.4 AST (U/L) Date Value 04/13/2018 16 ALT (U/L) Date Value 04/13/2018 28 URINALYSIS Specific [place], Ur Date Value Ref Range Status 03/23/2018 1.035 (A) 1.005 - 1.030 Final Glucose, Urine Date Value Ref Range Status 03/23/2018 NEGATIVE Negative mg/dL Final Bilirubin, Urine Date Value Ref Range Status 03/23/2018 NEGATIVE Negative Final Ketones, Urine Date Value Ref Range Status 03/23/2018 NEGATIVE Negative mg/dL Final Hemoglobin/Blood,Ur Date Value Ref Range Status 04/15/2017 Negative Negative Final Protein, Urine Date Value Ref Range Status 03/23/2018 100 (A) Negative mg/dL Final Urobilinogen, Urine Date Value Ref Range Status 03/23/2018 0.2 0.0 - 1.0 EU/dL Final WBC, Urine Date Value Ref Range Status 03/23/2018 0.6 0.0 - 5.0 /hpf Final The patient's risk for 30-day readmission is determined using the following contributing factors: Pt variables contributing to increased readmission risk: 19 Active Medication Orders 16 Most Recent BUN Result 12 Number of Hospitalizations (12 mos.) 11 Number of Previous ED Visits (6 mos.) 9.3 First Resulted Calcium During Admission 1 Previous ED Visit (6 mos.)? 1 Insurance - Medicare 1 Discharge Disposition - Home 1 Active Anticoagulant TIME OF CARE: Discharge Management: I personally spent greater than 45 minutes involved in the discharge management of this patient. SIGNATURE: Abhay Yoder MD PAGER/CONTACT #: Luciano patrick DATE: April 14, 2018 TIME: 12:42 PM This note was completed by a voice recognition system that, at times, may have some errors in interpretation. My best efforts have been implemented in trying to correct any errors that have occurred due to this software system. I have counseled the patient about risks versus benefits of all procedures and medications ordered during this encounter. We will try and adhere to the most beneficial and least risky procedures and medications. However, certain medications and procedures have inherent risks. Patient/caregiver acknowledged these risks, associated with medications and procedures, and wishes to proceed with the plan above as outlined. CONSULT Observed: 04/14/2018 Status: COMPLETED Source: [place] 8:17 AM CLINIC OTHER CAMPUS REPOSITORY HNO ID: [id number] Author: Ratna Bhatt Service: Cardiovascular Medicine Author Type: Physician Type: Consults Filed: 04/14/2018 8:36 AM Note Text: Card Consult Dictated Job [id number] 1. Coronary artery disease with a history of bypass grafting and then as well as possibly a stent to the left anterior descending about a year ago at [facility]. His management is really difficult because he goes to numerous hospitals and has been hospitalized almost monthly for chest pain. This is noted by other cardiologists elsewhere. Hehad a recent PET scan, which was negative for ischemia within the last month. This is a very sensitive in fairly accurate test. Current EKG unchanged with NSR, old IMI, nssttc enz all negative-doubt ischemia Given his lack of any enzyme leak or EKG changes and the fact that this was constant chest pain after a fall, I would not proceed with another heart catheterization . At this point, the patient will go home on his usual medications. 2. Tobacco, consult to quit, unlikely to occur. Some degree of chronic obstructive pulmonary disease. 3. HTN-high today 4. Lipids. He is on statin therapy. 5.Hx pacer-for conduction disease Thank you Ratna Bhatt MD Pager [phone] MDRD GFR Collected: 04/14/2018 Status: F Source: [facility] 4:00 AM HEALTH SYSTEM REPOSITORY TYPE CODE TESTS RESULT OUT OF RANGE REFERENCE UNITS LAB GFRFN(LOINC >60mL/min/1.73m ) 2 eGFR >60 Result Comment: If the patient is , multiply the result by 1.210. Performed By: #### GFR #### [place] [address] HEMOGRAM Collected: 04/14/2018 Status: F Source: [facility] 4:00 AM HEALTH SYSTEM REPOSITORY TYPE CODE TESTS RESULT OUT OF REFERENCE UNITS RANGE LAB WBC(LOINC) 4.23-9.07 thou/cmm High WBC 10.83 LAB RBC(LOINC) 4.63-6.08 mil/cmm Low RBC 4.39 LAB HGB(LOINC) 13.7-17.5 g/dL Low Hgb 13.6 LAB HCT(LOINC) 40.1-51.0 % Hct 41.0 LAB MCV(LOINC) 83.2-95.6 fl MCV 93.4 LAB MCH(LOINC) 25.7-32.2 pg MCH 31.0 LAB MCHC(LOINC) 32.3-36.5 % MCHC 33.2 LAB RDW(LOINC) 11.6-14.4 % RDW 14.2 LAB RDWSD(LOINC 36.1-45.8 fl ) High RDW SD 49.3 LAB PLT(LOINC) 141-365 thou/cmm Platelet 275 LAB MPV(LOINC) 8.7-12.0 fl MPV 10.6 Performed By: #### CBC1 #### [place] [address] BASIC PANEL Collected: 04/14/2018 Status: F Source: [facility] 4:00 AM HEALTH SYSTEM REPOSITORY TYPE CODE TESTS RESULT OUT OF REFERENCE UNITS RANGE LAB NA(LOINC) 136-145 mEq/L Sodium Blood 143 LAB K(LOINC) 3.5-5.1 mEq/L Potassium Blood 3.6 LAB CL(LOINC) 98-107 mEq/L Chloride Blood 106 LAB CO2(LOINC) 21-32 mEq/L CO2 Blood 32 LAB GLU(LOINC) 70-99 mg/dL Glucose High Blood 122 LAB BUN(LOINC) 7-18 mg/dL BUN Blood 16 LAB CREA(LOINC 0.67-1.17 mg/dL ) Creatinine Blood 0.98 LAB CA(LOINC) 8.5-10.1 mg/dL Calcium Blood 9.1 LAB ANGAP(LOIN 8-16 C) Anion Gap 9 Performed By: #### P8 #### [place] [address] HISTORY PHYSICAL Observed: 04/14/2018 Status: COMPLETED Source: [place] 1:21 AM CLINIC OTHER CAMPUS REPOSITORY HNO ID: [id number] Author: Karl Melendez Service: Hospital Medicine Author Type: Physician Type: HANDP Filed: 04/14/2018 2:18 AM Note Text: DEPARTMENT OF HOSPITAL MEDICINE HISTORY AND PHYSICAL EXAM SERVICE DATE: 04/14/2018 SERVICE TIME: 1:21 AM Primary Care Physician: No primary care provider on file. NIGHT AND WEEKEND COVERAGE: After 7pm, please call cross cover pager #[phone] Subjective CHIEF COMPLAINT: Chest pain. HPI: This is a 67 year old male who presents with c/o substernal chest pain that started yesterday evening, associated with some sob, nausea, diaphoresis. Pain was 8/10, relieved by ASA and Morphine and now is back to 7/10. Patient just had a stress test done in January this year which was normal except for T wave inversion in inferior/lateral leads. PAST MEDICAL HISTORY Diagnosis Date - AAA (abdominal aortic aneurysm) without rupture ([facility]) 05/13/[address] a/p - CAD (coronary artery disease) 2005 CAD s/p CABG x3 ([id number]-GPN-rgeazh, HYY-FIJ-kznitw, VRB-OO0-vtpizzug) (2006 at [facility]) - COPD (chronic obstructive pulmonary disease) ([facility]) - Current every day smoker PT SMOKES A PIPE - Diverticulitis Perforated Diverticulitis - Diverticulitis of sigmoid colon 05/15/2017 Added automatically from request for surgery [id number] - Hx of CABG - Pacemaker 02/16/2017 s/p PPM () 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 - Peritonitis ([facility]) PAST SURGICAL HISTORY Procedure Laterality Date - APPENDECTOMY HX - COLOSTOMY 07/2016 Diverting Loop Colostomy of the Transverse Colon - HEART SURGERY HX triple bypass 10 yrs ago - PPM IMPLANT - STENT - CORONARY FAMILY HISTORY Problem Relation Age of Onset - Coronary Artery Disease Father - Hyperlipidemia Father Social History Substance Use Topics - Smoking status: Current Every Day Smoker Packs/day: 0.50 Years: 35.00 Types: Pipe, Cigarettes - Smokeless tobacco: Never Used Comment: Quit cigarettes 11-16-16 now smoking 4 pipes as of 04-18-17 - Alcohol use No MEDICATIONS: Reviewed ALLERGIES Allergen Reactions - Altaseptic Unknown - Brilinta [Ticagrelo* Unknown - Crestor [Rosuvastat* Myalgia - Hctz [Amiloride-Hyd* Swelling - Moxifloxacin Swelling - Other [place]-3s Unknown brelinta - Ramipril Swelling Other reaction(s): Angioedema Other reaction(s): Facial swelling - Rosuvastatin Other: See Comments - Simvastatin Myalgia, Other: See Comments Other reaction(s): Facial swelling - Voltaren [Diclofena* Unknown REVIEW OF SYSTEM: GENERAL: No weight loss, malaise or fevers HEENT: Negative for frequent or significant headaches, No changes in hearing or vision, no nose bleeds or other nasal problems NECK: Negative for lumps, goiter, pain and significant neck swelling RESPIRATORY: Negative for cough, hemoptysis, wheezing, COPD, dyspnea or shortness of breath CARDIOVASCULAR: +chest pain GI: No nausea, vomiting, or diarrhea : No history of dysuria, frequency or incontinence MUSCULOSKELETAL: Negative for joint pain or swelling, back pain or muscle pain SKIN: Negative for lesions, rash, and itching PSYCH: Negative for sleep disturbance, mood disorder and recent psychosocial stressors HEMATOLOGY/LYMPHOLOGY: Negative for prolonged bleeding, bruising easily or swollen nodes ENDOCRINE: Negative for cold or heat intolerance, polyuria, polydipsia and goiter NEURO: No history of headaches, syncope, paralysis, seizures or tremors Objective PHYSICAL EXAM: BP 159/77 Pulse 73 Temp (Src) 98.1 (Oral) Resp 16 Ht 5' 8 (1.73m) Wt 195 lb (88.5kg) SpO2 98% BMI 29.66 kg/(m2). GENERAL: Alert, no distress, cooperative SKIN: Skin color, texture, turgor normal. No rashes or lesions. HEENT: normocephalic, atraumatic, EOMI, LORENZO, sclerae anicteric NECK: No jugulovenous distention, Supple, no thyromegaly or lymphadenopathy. Trachea midline. LUNGS: Lungs clear to auscultation b/l, no wheezes, rhonchi or crackles. Good respiratory effort. CARDIAC: Normal S1 and S2; no rubs, murmurs, or gallops ABDOMEN: Abdomen soft, non-tender, BS normal, No masses or organomegaly EXTREMITIES: Extremities normal, no deformities, edema, clubbing or skin discoloration. Good capillary refill., No ulcers DATA: Diagnostic tests reviewed for today's visit: Most recent labs and imaging results. Assessment/Plan Active Problems: Chest pain POA: Yes Assessment AND Plan: -observe on telemetry -consult cardiology Chronic systolic congestive heart failure (HCC) POA: Yes Assessment AND Plan: stable -resume EDITH Tinajero CAD (coronary artery disease) POA: Yes Assessment AND Plan: -resume ASA, statin, BB Essential hypertension POA: Yes Assessment AND Plan: -resume home medications Hypokalemia POA: Yes Assessment AND Plan: -replace and monitor Acute sinusitis POA: Yes Assessment AND Plan: -add Augmentin Resolved Problems: * No resolved hospital problems. * VTE Prophylaxis: Heparin 5000 units Sub Q BID Disposition: Home Plan of care discussed with: Patient SIGNATURE: Karl Melendez MD PATIENT NAME: Maxx Knott DATE: April 14, 2018 TIME: 1:21 AM PAGER/CONTACT #: ED NOTE Observed: 04/14/2018 Status: COMPLETED Source: [place] 12:26 AM [facility] OTHER CAMPUS REPOSITORY HNO ID: [id number] Author: Vanesa KingRn) MITCHELL Dawkins Service: Emergency Medicine Author Type: Registered Nurse Type: ED Notes Filed: 04/14/2018 12:26 AM Note Text: Attempted to call report. RN not available @ this time. CONSULT Observed: 04/14/2018 Status: COMPLETED Source: [place] 12:00 AM [facility] OTHER CAMPUS REPOSITORY HNO ID: [id number] Author: Ratna Bhatt Service: Cardiovascular Medicine Author Type: Physician Type: Consults Filed: 04/14/2018 10:24 AM Note Text: [facility] - Consultation PATIENT NAME: MAXX KNOTT CSN: [id number] DATE OF : 1950 SEX/AGE: M/67 PATIENT TYPE: [place] [facility] [place] [facility] LOCATION: [facility] DATE OF SERVICE: 04/14/2018 CHIEF COMPLAINT: Chest pain. HISTORY OF PRESENT ILLNESS: This is a 67-year-old gentleman, who is chronically ill. He has been in the hospital numerous times and has known coronary artery disease with prior bypass grafting and I think most of this was done at [facility]. It sounds like about a year ago to year and a half ago, he had stenting done of the LAD at according to his report. He was just in the hospital. I saw him in a consult about a month ago and part of his issue is he has had multiple hospitalization to multiple hospitals for multiple symptoms including chest pain. He also has hypertension, tobacco use, still smokes a pipe, hyperlipidemia. He has a pacer for conduction disease. He has a colostomy. He has some chronic malnutrition. I believe the colostomy was for diverticulosis. He has a small aortic aneurysm about 3.1 cm. Chronic anxiety disorder, history of falls, chronic narcotic use, sleep apnea. Family history is not really contributory given his known CAD. He has even had a PET scan done I believe within the last month or 2, which is extremely sensitive and is negative for any ischemia. He was here about a month ago when I had seen him. Enzymes were negative. There were no EKG changes. Nothing was cardiac and did not recommend further testing. He has also gone to the [facility]. He has had constant chest pain since yesterday. He has chronic GI symptoms with a history of a colostomy. He is not aware of having esophagitis. I do not believe he drinks much in the way of alcohol. His LV function I believe has been reported as fairly good, although I do not have a recent ejection fraction. MEDICATIONS: His medications at home, which he says he is compliant with are numerous including inhaler therapy, amlodipine aspirin, Lasix, losartan, metoprolol, Percocet, Pravachol, Seroquel, pantoprazole, and Ranexa. ALLERGIES: Per the [facility] and are numerous and do include Brilinta. I do not see that he is on clopidogrel, but he is on aspirin. He has some nausea and vomiting. No GI bleeding. PHYSICAL EXAMINATION: GENERAL: Chronically ill-appearing gentleman, wearing a nasal CPAP, very pleasant. VITAL SIGNS: Blood pressure on the high side 180/70, pulse is 60 to 70 in sinus, temp is 36.7. SKIN: No major bruising or skin rash. PSYCH: Anxious affect. Very pleasant, pretty normal speech. NEUROLOGIC: Nonfocal. Normal mentation. Moves all extremities. HEENT: Pupils equal. Eyelids grossly normal. NECK: Cannot assess JVD or thyromegaly. Carotid upstrokes normal. CHEST: Diminished breath sounds. Healed sternotomy. No wheeze, somewhat prolonged expiration. No definite accessory muscle use. CARDIAC EXAM: Regular rhythm. Really distant heart sounds. [place] is nonpalpable. There is no RV lift. No definite murmur or gallop. ABDOMEN: History of colostomy. No obvious rebound. Radial pulses are 1 to 2+, right femoral pulse 2+. EXTREMITIES: Lower extremities show no significant edema. Distal pulses are 1 to 2+. IMAGING AND LABORATORY DATA: EKG, sinus rhythm, old inferior infarct. Nonspecific ST changes. QT corrected is read at 0.66. I do not believe this is accurate. Sodium 143, potassium 3.6, BUN 16, creatinine is 1. Hematocrit 41, white count 10, platelets 275,000. Cardiac enzymes are negative x3. Chest x-ray, no acute process. ALT is 28. IMPRESSION: 1. Coronary artery disease: Very complex difficult issue in a gentleman with bypass surgery, probable stenting of the LAD about a year ago at [facility] who is here in the hospital with recurrent chest pain that is constant with no enzyme leak or EKG changes similar to a month ago. In addition, he had a recent PET scan, which is a very very sensitive test, which was normal. I really do not think a cardiac catheterization is indicated and had suggested previously that perhaps his usual straightening machine operator, Dr. Anne, might consider as an outpatient just to prove that his stenting sites were patent. I am still disinclined to do a heart catheterization based on his current presentation because it is almost certainly noncardiac given his negative enzymes and constant chest pain. At this point, I would not do further cardiac workup. 2. Tobacco use, once again counseled to quit. 3. Colostomy with history of diverticulitis. 4. Chronic pain and anxiety disorder. 5. Hypertension, a little high here. 6. Lipids. He is I believe on statin therapy. 7. History of pacer: No current pacing- done for conduction disease. Thank you for the consult on this very nice, but very challenging gentleman. Ratna Bhatt MD Cardiology DAC:modl /[id number] cc:MD René Ortez MD LACTIC ACID Collected: 04/13/2018 Status: F Source: [facility] 11:03 PM HEALTH SYSTEM REPOSITORY TYPE CODE TESTS RESULT OUT OF REFERENCE UNITS RANGE LAB EDLAC(LOINC 0.5-2.2 mEq/L ) Lactic Acid 1.7 Performed By: #### EDLAG #### [place] [address] [facility] TROPONIN I Collected: 04/13/2018 Status: F Source: [facility] 10:48 PM HEALTH SYSTEM REPOSITORY TYPE CODE TESTS RESULT OUT OF REFERENCE UNITS RANGE LAB ERTRP(LOINC 0.015-0.045 ng/ml ) [facility] Troponin I 0.030 Performed By: #### ERTRP #### [facility] [address] [place] [id number] CHEST 2 VIEWS Observed: 04/13/2018 Status: F Source: [facility] 9:21 PM HEALTH SYSTEM REPOSITORY Performed at [facility] APPROVED BY: PERRI GARZA MD EXAMINATION: CHEST RADIOGRAPH (2 VIEW FRONTAL & LATERAL) CLINICAL HISTORY: Chest pain MQ: XC2_5 Comparison: 04/06/18 RESULT: Lines, tubes, and devices: Left chest wall dual chamber pacer. Lungs and pleura: No consolidation. No lung mass. No pleural effusion. Cardiomediastinal silhouette: Normal cardiomediastinal silhouette. Other: Median sternotomy. Unchanged focal elevation/herniation involving the left hemidiaphragm. IMPRESSION: No acute radiographic abnormality. 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 Chest pain is intermittent and midsternal. He also complains of problems with his stoma with his intestines protruding out which has been present for weeks and he has failed to follow up according to EMR. He is having normal output out of his colostomy and there is no signs concerning for obstruction. Chest pain is substernal and like his most recent heart attack in 2005 where he received a CABG. He had no improvement with nitroglycerin. Last echo (02/14) shows: - Technically difficult exam due to body habitus. - Exam indication: Evaluation of ventricular function following ACS - The left ventricle is mildly dilated. Left ventricular systolic function is mildly decreased. EF = 45 ? 5% (visual est.) Grade I left ventricular diastolic dysfunction. Abnormal global strain -14.1% - The right ventricle is normal in size. Right ventricular systolic function is normal. - The left atrial cavity is mildly dilated. - Exam was compared with the prior echocardiographic exam performed on 04/02/2017. No significant change PAST MEDICAL HISTORY Diagnosis Date - AAA (abdominal aortic aneurysm) without rupture ([facility]) 05/13/[address] a/p - CAD (coronary artery disease) 2005 CAD s/p CABG x3 (BSHJ-SFU-gzpxje, MMX-APM-fjdzez, NEG-CP2-jczmuqjr) (2006 at [facility]) - COPD (chronic obstructive pulmonary disease) ([facility]) - Current every day smoker PT SMOKES A PIPE - Diverticulitis Perforated Diverticulitis - Diverticulitis of sigmoid colon 05/15/2017 Added automatically from request for surgery [id number] - Hx of CABG - Pacemaker 02/16/2017 s/p PPM () 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 - Peritonitis (HCC) PAST SURGICAL HISTORY Procedure Laterality Date - APPENDECTOMY HX - COLOSTOMY 07/2016 Diverting Loop Colostomy of the Transverse Colon - HEART SURGERY HX triple bypass 10 yrs ago - PPM IMPLANT - STENT - CORONARY FAMILY HISTORY Problem Relation Age of Onset - Coronary Artery Disease Father - Hyperlipidemia Father Social History Social History Main Topics - Smoking status: Current Every Day Smoker Packs/day: 0.50 Years: 35.00 Types: Pipe, Cigarettes - Smokeless tobacco: Never Used Comment: Quit cigarettes 11-16-16 now smoking 4 pipes as of 04-18-17 - Alcohol use No - Drug use: No - Sexual activity: Not Currently ALLERGIES Allergen Reactions - Altaseptic Unknown - Brilinta [Ticagrelo* Unknown - Crestor [Rosuvastat* Myalgia - Hctz [Amiloride-Hyd* Swelling - Moxifloxacin Swelling - Other [place]-3s Unknown brelinta - Ramipril Swelling Other reaction(s): Angioedema Other reaction(s): Facial swelling - Rosuvastatin Other: See Comments - Simvastatin Myalgia, Other: See Comments Other reaction(s): Facial swelling - Voltaren [Diclofena* Unknown Review of Systems Constitutional: Negative for chills and fever. HENT: Negative for nosebleeds, rhinorrhea, trouble swallowing and voice change. Eyes: Negative for discharge and redness. Respiratory: Positive for shortness of breath. Negative for cough, wheezing and stridor. Cardiovascular: Positive for chest pain. Negative for palpitations. Gastrointestinal: Positive for nausea and vomiting. Negative for abdominal pain and diarrhea. Endocrine: Negative for polydipsia and polyuria. Genitourinary: Negative for dysuria and frequency. Musculoskeletal: Negative for neck pain and neck stiffness. Skin: Negative for pallor and rash. Allergic/Immunologic: Negative for environmental allergies and immunocompromised state. Neurological: Negative for weakness and numbness. Hematological: Negative for adenopathy. Does not bruise/bleed easily. Psychiatric/Behavioral: Negative for agitation and confusion. Physical Exam BP 171/92 Pulse 120 Temp (Src) 98.1 (Oral) Resp 16 Ht 5' 8 (1.73m) Wt 195 lb (88.5kg) SpO2 97% BMI 29.66 kg/(m2). Physical Exam Constitutional: He is oriented to person, place, and time. No distress. Sitting upright, appears comfortable HENT: Head: Normocephalic and atraumatic. Nose: Nose normal. Eyes: Pupils are equal, round, and reactive to light. Conjunctivae and EOM are normal. Right eye exhibits no discharge. Left eye exhibits no discharge. Neck: Neck supple. No JVD present. No thyromegaly present. Cardiovascular: Regular rhythm, normal heart sounds and intact distal pulses. Tachycardia present. No murmur heard. Mildly tachycardic (95-105) Pulmonary/Chest: Effort normal and breath sounds normal. No respiratory distress. Abdominal: Soft. He exhibits no distension. There is tenderness (RLQ around stoma with protruding intestinal mucosa visable in stoma bag). There is no guarding. Musculoskeletal: He exhibits no edema or deformity. Neurological: He is alert and oriented to person, place, and time. No cranial nerve deficit. He exhibits normal muscle tone. Skin: Skin is warm and dry. He is not diaphoretic. Psychiatric: He has a normal mood and affect. His behavior is normal. Nursing note and vitals reviewed. Diagnostic Testing ED Labs Ordered and Reviewed COMPREHENSIVE METABOLIC PANEL (AK,AV,EU,FV,HL,DEMARCO,MM,SP) - Abnormal; Notable for the following: Result Value Ref Range Potassium 3.3 (*) 3.5 - 5.1 mEq/L Glucose 134 (*) 70 - 99 mg/dL All other components within normal limits CBC + AUTO DIFF (AK,AV,EU,FV,HL,DEMARCO,MM,SP) - Abnormal; Notable for the following: WBC 12.14 (*) 4.23 - 9.07 thou/cmm RDW-SD 47.2 (*) 36.1 - 45.8 fl Abs. Neut(Anc) 8.77 (*) 1.78 - 5.38 thou/cmm Abs. [place] 0.89 (*) 0.30 - 0.82 thou/cmm All other components within normal limits LIPASE BLOOD (AK,AV,EU,FV,HL,DEMARCO,MM,SP) - Abnormal; Notable for the following: Lipase 51 (*) 73 - 393 U/L All other components within normal limits [facility] TROPONIN I (AR ED) MAGNESIUM BLOOD (AK,AV,EU,FV,HL,DEMARCO,MM,SP) MDRD GFR URINALYSIS WITH MICROSCOPIC (AK,AV,EU,FV,HL,DEMARCO,MM,SP) Procedures ED Course / Clinical Impression ED Course as of Apr 13 2302 Beni (Res) Sudeep's Documentation Sat Apr 13, [id number] [facility] Troponin I: 0.024 2105 Potassium: (!) 3.3 Clinical Impressions as of Apr 13 2302 Chest pain, unspecified type Stoma dermatitis Hypokalemia MDM / Disposition / Plan 67-year-old male presents for chest pain, shortness breath, nausea in setting of multiple cardiac risk factors with known CAD status post CABG. Chest pain is substernal and like his most recent heart attack in 2005 where he received a CABG. He had no improvement with nitroglycerin. He describes as a pressure-like sensation. Heart score is 7 due to his mildly elevated troponin, wrist factors and concerning story. He also complains of protrusion of his intestine surgery stoma that has been present for weeks, however he is failed follow-up with his colostomy clinic. Aspirin was given here as well as nitroglycerin which did not improve his symptoms. He was given morphine for his pain. HEART Score HPI: Highly suspicious +2 EKG: Non-specific repolarization abnormality +1 Age: >65 +2 Risk factors: Greater than or equal to 3 risk factors +2 Troponin: 1-3 x normal limit +1 HEART score: 8 *The HEART Score is a prospectively studied scoring system to help emergency physicians risk-stratify chest pain patients who are at risk for all-cause mortality, myocardial infarction, or coronary revascularization in the next 6 weeks. Low risk patients have a score 0-3 and have a less than 2% risk of major event at 6 weeks.* Ultrasound Guided Peripheral Line Access Indication Patient requires placement of a peripheral venous catheter for emergent administration of IV fluids and or medications. Several blind peripheral attempts were unsuccessful Procedure in detail Using the linear probe covered in a sterile sheath, a short axis views were obtained of the: Anticubital vein This vein was completely compressible and was identified as separate from the adjacent non-compressible arterial structure Under real-time guidance, the intravenous needle was observed to tent the vein, and then to puncture it Still images or video images were saved for this of this exam: Yes Conclusion Successful peripheral venous catheterization under ultrasound guidance. This limited imaging study was performed by: Resident with Attending supervision. The patient was ADMITTED TO: Regular nursing floor. Condition at time of disposition: improved SIGNATURE: DO Beni Gordon (Res) Sudeep Resident 04/13/18 2307 Naomie Martines DO 04/13/18 0765 ED NOTE Observed: 04/13/2018 Status: COMPLETED Source: [place] 8:07 PM CLINIC OTHER CAMPUS REPOSITORY HNO ID: [id number] Author: Nai (Rn) MITCHELL Pierre Service: Emergency Medicine Author Type: Registered Nurse Type: ED Notes Filed: 04/13/2018 8:07 PM Note Text: X-ray notified of patient HEMOGRAM/DIFF Collected: 04/13/2018 Status: F Source: [facility] 8:02 PM HEALTH SYSTEM REPOSITORY TYPE CODE TESTS RESULT OUT OF REFERENCE UNITS RANGE LAB WBC(LOINC) 4.23-9.07 thou/cmm WBC High 12.14 LAB RBC(LOINC) 4.63-6.08 mil/cmm RBC 4.71 LAB HGB(LOINC) 13.7-17.5 g/dL Hgb 14.8 LAB HCT(LOINC) 40.1-51.0 % Hct 42.9 LAB MCV(LOINC) 83.2-95.6 fl MCV 91.1 LAB MCH(LOINC) 25.7-32.2 pg MCH 31.4 LAB MCHC(LOINC 32.3-36.5 % ) MCHC 34.5 LAB RDW(LOINC) 11.6-14.4 % RDW 14.0 LAB RDWSD(LOIN 36.1-45.8 fl C) RDW SD High 47.2 LAB PLT(LOINC) 141-365 thou/cmm Platelet 302 LAB MPV(LOINC) 8.7-12.0 fl MPV 10.5 LAB SEG(LOINC) % Seg Neutrophil 72.2 LAB IGRE(LOINC % ) Immature Grans 0.40 LAB LYMPH(LOIN % C) Lymphocyte 17.7 LAB MNO(LOINC) % Monocyte 7.3 LAB EOSIN(LOIN % C) Eosinophil 2.0 LAB BASO(LOINC % ) Basophil 0.4 LAB SEGN(LOINC 1.78-5.38 thou/cmm ) Abs. High Neut (ANC) 8.77 LAB IGAB(LOINC 0.00-0.05 thou/cmm ) Abs Immature Grans 0.05 LAB LYMN(LOINC 0.84-2.85 thou/cmm ) Abs. Lymph 2.15 LAB MONON(LOIN 0.30-0.82 thou/cmm C) Abs. High [place] 0.89 LAB EOSN(LOINC 0.04-0.54 thou/cmm ) Abs. Eosin 0.24 LAB BASON(LOIN 0.01-0.08 thou/cmm C) Abs. Baso 0.05 Performed By: #### CBCD1 #### [facility] [address] [place] [address] ECU TROPONIN I Collected: 04/13/2018 Status: F Source: [facility] 8:[facility] REPOSITORY TYPE CODE TESTS RESULT OUT OF REFERENCE UNITS RANGE LAB ERTRP(LOINC 0.015-0.045 ng/ml ) ECU Troponin I 0.024 Performed By: #### ERTRP #### [place] [address] COMPREHENSIVE PANEL Collected: 04/13/2018 Status: F Source: [address] [facility] SYSTEM REPOSITORY TYPE CODE TESTS RESULT OUT OF REFERENCE UNITS RANGE LAB NA(LOINC) 136-145 mEq/L Sodium Blood 139 LAB K(LOINC) 3.5-5.1 mEq/L Low Potassium Blood 3.3 LAB CL(LOINC) 98-107 mEq/L Chloride Blood 104 LAB CO2(LOINC) 21-32 mEq/L CO2 Blood 27 LAB GLU(LOINC) 70-99 mg/dL Glucose High Blood 134 LAB BUN(LOINC) 7-18 mg/dL BUN Blood 12 LAB CREA(LOINC 0.67-1.17 mg/dL ) Creatinine Blood 0.90 LAB CA(LOINC) 8.5-10.1 mg/dL Calcium Blood 9.3 LAB ALB(LOINC) 3.4-5.0 g/dL Albumin Blood 3.9 LAB TP(LOINC) 6.4-8.2 g/dL Total Protein 7.8 LAB AST(LOINC) 9-37 U/L AST-SGOT Blood 16 LAB ALT(LOINC) 12-78 U/L ALT-SGPT Blood 28 LAB ALKP(LOINC 46-116 U/L ) Alk Phosphatase 95 LAB BILIT(LOIN 0.2-1.0 mg/dL C) Total Bilirubin 0.4 LAB ANGAP(LOIN 8-16 C) Anion Gap 11 Performed By: #### P14 #### [facility] [address] [place] [address] MAGNESIUM BLOOD Collected: 04/13/2018 Status: F Source: [facility] 8:02 PM HEALTH SYSTEM REPOSITORY TYPE CODE TESTS RESULT OUT OF REFERENCE UNITS RANGE LAB MAG(LOINC) 1.6-2.6 mg/dL Magnesium Blood 1.9 Performed By: #### MAG #### [facility] [address] [place] [address] LIPASE BLOOD Collected: 04/13/2018 Status: F Source: [facility] 8:02 PM HEALTH SYSTEM REPOSITORY TYPE CODE TESTS RESULT OUT OF REFERENCE UNITS RANGE LAB LIP(LOINC) 73-393 U/L Low Lipase Blood 51 Performed By: #### LIP #### [facility] [address] [place] [address] ED TRIAGE NOTE Observed: 04/13/2018 Status: COMPLETED Source: [place] 7:47 PM [facility] OTHER CAMPUS REPOSITORY HNO ID: [id number] Author: ALEM Brooke (Pa) Service: Emergency Medicine Author Type: Physician Tool Grinder Operator Surface Type: ED Triage Notes Filed: 04/13/2018 7:51 PM Note Text: ED INTAKE NOTE Patient Name: Maxx Knott Service Date: 04/13/18 BRIEF HPI: Pt presents to ED with c/o chest pain and abd pain. Chest pain started 1 hour BIOFUELS MANAGER to ED. He admits to SOB and n/v. He has colostomy that was placed to [facility] 1.5 years ago and he is having pain in that area. He states his intestines are coming into the bag which is not normal for him. BRIEF EXAM: Awake and Alert Tachycardic Appears to have increased WOB There is intestine protruding through patient's colostomy bag INTAKE WORKUP: Bloodwork: CBC CMP Cardiac Enzymes Lipase EKG Urinalysis Imaging: XR: chest SIGNATURE: Livia Bernabe PA-C PROGRESS Observed: 04/09/2018 Status: COMPLETED Source: [place] 10:21 AM [facility] MAIN CAMPUS REPOSITORY HNO ID: [id number] Author: Britt Toth) MITCHELL Prado Service: (none) Author Type: Registered Nurse Type: Progress Notes Filed: 04/09/2018 10:25 AM Note Text: TRANSITION CARE MANAGEMENT (TCM) INITIAL CONTACT TRANSITION CARE MANAGEMENT: Date of Outreach: 04/08/2018 Date of Discharge 04/07/2018 Some recent data might be hidden SUMMARY: -Pt discharged from [place] on 04/07. -Follow up appointment on : unable to reach the patient to schedule a f/u appointment -Medication review done : No unable to reach the patient -Admitted for: chest pain Second outreach attempt . Patient called for care coordination after his hospital discharge. The patient was unavailable and his voice mail box is full Britt Prado RN.MAIA [facility] [employer] [facility] [employer] [[id number] PROGRESS Observed: 04/08/2018 Status: COMPLETED Source: [place] 1:21 PM [facility] REPOSITORY HNO ID: [id number] Author: Britt Toth) MITCHELL Prado Service: (none) Author Type: Registered Nurse Type: Progress Notes Filed: 04/08/2018 1:23 PM Note Text: First outreach attempt . Patient called for care coordination after his hospital discharge. The patient was unavailable and his voice mail box is full Will attempt to reach the patient again Britt Prado RN.MAIA [facility] [employer] [[id number] CNPTOUTREA Observed: 04/08/2018 Status: COMPLETED Source: [place] 12:00 AM [facility] REPOSITORY Patient Outreach (INTMMN) MAXX KNOTT ([id number]) 1950 M Date Time Provider Department 04/08/18 BRITT PRADO) INTPRATIBHA During your visit today, we recorded the following information about you: Britt Prado RN, RN 04/08/2018 1:23 PM Signed First outreach attempt . Patient called for care coordination after his hospital discharge. The patient was unavailable and his voice mail box is full Will attempt to reach the patient again Birtt Prado RN.MAIA [facility] [[id number] Britt Prado RN, RN 04/09/2018 10:25 AM Signed TRANSITION CARE MANAGEMENT (TCM) INITIAL CONTACT TRANSITION CARE MANAGEMENT: Date of Outreach: 04/08/2018 Date of Discharge 04/07/2018 Some recent data might be hidden SUMMARY: -Pt discharged from [place] on 04/07. -Follow up appointment on : unable to reach the patient to schedule a f/u appointment -Medication review done : No unable to reach the patient -Admitted for: chest pain Second outreach attempt . Patient called for care coordination after his hospital discharge. The patient was unavailable and his voice mail box is full Britt Prado RN.MAIA [facility] [[id number] Allergies As of Date: 04/08/2018 Noted Allergy Reaction ALTASEPTIC 12/17/2016 16 - Unknown BRILINTA (TICAGRELOR) 08/09/2017 16 - Unknown CRESTOR (ROSUVASTATIN CALCIUM) 12/17/2016 17 - Myalgia HCTZ (AMILORIDE-HYDROCHLOROTHIAZI*12/17/2016 7 - Swelling MOXIFLOXACIN 7 - Swelling OTHER OMEGA-3S 07/06/2017 16 - Unknown Comments: brelinta RAMIPRIL 12/17/2016 7 - Swelling Comments: Other reaction(s): Angioedema Other reaction(s): Facial swelling ROSUVASTATIN 02/19/2018 14 - Other: See Comments SIMVASTATIN 12/17/2016 17 - Myalgia 14 - Other: See Comments Comments: Other reaction(s): Facial swelling VOLTAREN (DICLOFENAC SODIUM) 12/17/2016 16 - Unknown Date Reviewed: 04/07/2018 Reviewed by: Khoa Toth) MITCHELL Chin - Fully Assessed Reason for Visit: Transition Of Care [4734] Cmt: Hospital D/C 04/07 for chest pain Prescriptions as of 04/08/2018 Sig: ALBUTEROL SULFATE HFA 90 MCG/* Inhale 2 Puffs as instructed * ALUMINUM-MAG HYDROXIDE-SIMETH* Take 30 mL by mouth every 6 h* AMLODIPINE 10 MG TABLET Take 10 mg by mouth once dominik* ASPIRIN 81 MG TABLET,DELAYED * Take 81 mg by mouth once dominik* COMPOUNDED PRESCRIPTION One Piece Ostomy Pouch Item T* COMPOUNDED PRESCRIPTION Paste: Convatec Stomahesive * CYCLOBENZAPRINE 10 MG TABLET Take 1 tablet by mouth at bed* FLUTICASONE 50 MCG/ACTUATION * Use 1 [place] in the nose once * FUROSEMIDE 20 MG TABLET Take 40 mg by mouth once dominik* GABAPENTIN 300 MG CAPSULE Take 2 capsules by mouth dominik* LORATADINE 10 MG CAPSULE Take 1 capsule every day by o* LOSARTAN 100 MG TABLET Take 100 mg by mouth once roddy* METOPROLOL SUCCINATE ER 100 M* Take 1 tablet by mouth once d* MULTIVITAMIN AND MINERALS ORAL Take 1 capsule by mouth once * NITROGLYCERIN 0.4 MG SUBLINGU* PLACE ONE(1) TABLET UNDER TON* PANTOPRAZOLE 40 MG TABLET,DEL* Take 1 tablet by mouth DAILY * PRAVASTATIN 40 MG TABLET Take 40 mg by mouth daily at * QUETIAPINE 200 MG TABLET Take 2 tablets by mouth daily* Patient taking differently: Take 200 mg by mouth daily at* RANOLAZINE ER 500 MG TABLET,E* Take 1 tablet by mouth twice * B COMPLEX ORAL Take 1 tablet by mouth once d* Problem List As Of Date 04/08/2018 Noted Resolved 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 Chest pain [R07.9] INVALID FOR*12/02/2017 More... Hypertensive crisis [I16.9] INVALID FOR* More... Healthcare maintenance [Z00.00] INVALID FOR* More... Malnutrition of mild degree (HCC) [E44.1] INVALID FOR* More... CHF exacerbation (HCC) [I50.9] INVALID FOR*12/02/2017 Diverticulitis of sigmoid colon [K57.32] INVALID FOR* Class: Recurrent More... Chronic systolic congestive heart failure (HCC)*INVALID FOR* More... CAD (coronary artery disease) [I25.10] INVALID FOR* More... Hypertensive heart disease with congestive hear*INVALID FOR* Hypocalcemia [E83.51] INVALID FOR*06/19/2017 Hypernatremia [E87.0] INVALID FOR*06/19/2017 Hypokalemia [E87.6] INVALID FOR*06/19/2017 Parastomal hernia without obstruction or gangre*INVALID FOR* Abdominal aortic aneurysm without rupture (HCC)*INVALID FOR* Renal cysts, acquired, bilateral [N28.1] INVALID FOR* Arthritis [M19.90] INVALID FOR* Anxiety disorder [F41.9] INVALID FOR* Essential hypertension [I10] INVALID FOR* More... Nicotine use disorder, F17.2 [F17.200] INVALID FOR* Melena [K92.1] INVALID FOR* Fall [W19.XXXA] INVALID FOR* Abdominal pain [R10.9] INVALID FOR* Peristomal hernia [K46.9] INVALID FOR* Prolapse of intestine [K63.4] INVALID FOR*12/02/2017 Chronic narcotic use [F11.90] INVALID FOR* Chest pain [R07.9] INVALID FOR*12/02/2017 Chest pain [R07.9] INVALID FOR*02/03/2018 Other chest pain [R07.89] INVALID FOR* More... Coronary artery disease involving coronary bypa*INVALID FOR* More... Colostomy care (HCC) [Z43.3] INVALID FOR* More... Pulmonary nodules [R91.8] INVALID FOR* More... Thyroid nodule [E04.1] INVALID FOR* More... AAA (abdominal aortic aneurysm) without rupture*INVALID FOR* More... Obstructive sleep apnea [G47.33] INVALID FOR* More... Hyperlipidemia [E78.5] INVALID FOR* More... Chest pain [R07.9] INVALID FOR* Encounter Status:Closed by BRITT PRADO on 04/09/18 CNDS Observed: 04/07/2018 Status: COMPLETED Source: [place] 11:18 AM CLINIC OTHER CAMPUS REPOSITORY HNO ID: [id number] Author: Helena Issa APRN.CNP Service: Hospital Medicine Author Type: Nurse Practitioner Type: Discharge Summaries Filed: 04/07/2018 11:35 AM Note Text: Attestation signed by Taylor Moreno at 04/08/2018 8:31 AM Attending Note I have reviewed the PA/GUEST RELATIONS RECEPTIONIST note. Additions or changes: None Signature: Taylor Moreno MD Date: 04/08/2018 Time: 8:31 AM DISCHARGE SUMMARY PATIENT NAME: Maxx Knott ADMISSION DATE: 04/06/2018 DISCHARGE DATE: 04/07/2018 Attending Physician: Taylor Moreno Code Status: Prior Highest Readmission Risk Score: 30 The 30 day readmissions risk score is derived from an internally validated risk model which evaluates patient level characteristics, utilization history, medication orders and lab results up until the day of discharge. Patients with a score of 40 or above are considered highest risk for readmission. Specific patient level drivers will be listed at the bottom of the summary. Reason for Hospitalization: chest pain Diagnosis: Active Problems: Chest pain Resolved Problems: * No resolved hospital problems. * Hospital Course as Described to the Patient: You were admitted for chest pain . Maxx Knott, you came to the hospital because you were having chest pain. You were placed in observation for further work-up and evaluation so that we could monitor your condition. While here, your blood work and EKGs were monitored. At this time, we feel it is safe for you to return home and you are being discharged. We recommend you continue to follow up with your [facility] doctor to discuss your stoma. Please call Sunday for this appointment. We also recommend you follow-up with your primary care physician within 7 days to discuss your recent hospitalization and assure your symptoms continue to improve. Please call Sunday for this appointment Transitions of Care Critical Issues: [facility]-up with [facility] physician and straightening machine operator LABS AND PROCEDURES PENDING AT DISCHARGE: Test Results Not Yet Available from This Hospitalization: Please Review at Your Follow Up Appointment None No pending results. Additional Provider to Provider Information: Chest pain POA: Yes -Patient remained stable overnight and this morning requested to leave AMA despite his blood pressure being recorded at 184.81. -- >> Patient's RNLamar administered to patient his morning medications to include: 81 mg Aspirin, 100 mg Losartan, 100 mg and Metoprolol succinate ER. Patient was advised on the risks of leaving AMA, to include, stroke, heart attack and even . Patient verbalized understanding for leaving and signed the AMA form. The AMA form, along with Evaluation for Decision-Making Capacity was completed and placed on patient's chart. At the time of leaving AMA, patient was stable with mild complaints of chest pain. Advised patient to re-check his blood pressure today and to call his primary care provider at the [facility] for a follow-up appointment. In addition, patient was advised to call his straightening machine operator and GI physician for follow-up appointments in the morning. Patient verbalized understanding. Patient was AANDOx3, cooperative, speaking in clear and coherent sentences, was not actively hallucinating or exhibiting delusional behavior. Troponin x3 negative XR chest IMPRESSION: No acute or active intrathoracic abnormality is seen. CT Abdomen/pelvis IMPRESSION: ?There is a parastomal hernia including multiple loops of small bowel. ?This appears perhaps somewhat more extensive than on the exam of 03/23/2018. ?There is no evidence of obstruction at this time. ? 2. ?Severe sigmoid diverticulosis. ?No evidence of acute diverticulitis 3. ?IV contrast within the urinary bladder. ?This is of uncertain origin. ?The contrast on today's exam had not reached the ureters at the time of imaging. ? Correlate with any recent IV contrast administration. ?The patient did have IV contrast 2 weeks ago. Operations During Hospitalization: None Procedures During Hospitalization: EKG Consulting Teams During Hospitalization: Treatment Team: Attending Provider: Taylor Moreno None Patient Condition @ Discharge: Stable Discharge Disposition: Home/Self Care Discharge Physical Exam: VITAL SIGNS: BP 184/81 Pulse 88 Temp 36.9 ?C (98.4 ?F) (Oral) Resp 18 Ht 172.7 cm (5' 8) Wt 86.2 kg (190 lb) SpO2 95% BMI 28.89 kg/m? GENERAL: Alert, no distress, cooperative SKIN: Skin color, texture, turgor normal. No rashes or lesions. HEAD/SINUSES: No significant findings NECK: No jugulovenous distention, Supple BACK: Back symmetric, ROM normal LUNGS: Lungs clear to auscultation, Good diaphragmatic excursion, normal breathing effort CARDIAC: Normal S1 and S2; no rubs, murmurs, or gallops ABDOMEN: Abdomen soft, non-tender, BS normal, No masses or organomegaly. Ileostomy. EXTREMITIES: Extremities normal, no deformities, edema, clubbing or skin discoloration. Good capillary refill., No ulcers NEURO: Grossly normal cognition, motor function, and cranial nerves III-XII PULSES: 2+ radial The remainder of the physical exam is noncontributory. Information Provided to Patient: Diet: Resume pre-hospital diet Activity: Resume pre-hospital activity Wound/Surgical Site Care: ALLERGIES Allergen Reactions - Altaseptic Unknown - Brilinta [Ticagrelo* Unknown - Crestor [Rosuvastat* Myalgia - Hctz [Amiloride-Hyd* Swelling - Moxifloxacin Swelling - Other [place]-3s Unknown brelinta - Ramipril Swelling Other reaction(s): Angioedema Other reaction(s): Facial swelling - Rosuvastatin Other: See Comments - Simvastatin Myalgia, Other: See Comments Other reaction(s): Facial swelling - Voltaren [Diclofena* Unknown Discharge Medications: Current Discharge Medication List CONTINUE these medications which have NOT CHANGED pantoprazole DR (PROTONIX) 40 mg Take 40 mg by mouth DAILY (6 AM). Qty: 30 tablet Refills: 0 aluminum-magnesium hydroxide-simethicone (MAALOX,MYLANTA,MAG- AL PLUS) 30 mL Take 30 mL by mouth every 6 hours as needed. Qty: 200 mL Refills: 0 ranolazine ER (RANEXA) 500 mg Take 500 mg by mouth twice daily. Qty: 60 tablet Refills: 0 vitamin B complex (B COMPLEX ORAL) 1 tablet Take 1 tablet by mouth once daily. aspirin, enteric coated (ASPIRIN, ENTERIC COATED) 81 mg Take 81 mg by mouth once daily. cyclobenzaprine (FLEXERIL) 10 mg Take 10 mg by mouth at bedtime as needed for Muscle Spasm. Associated Diagnoses:Chronic low back pain, unspecified back pain laterality, with sciatica presence unspecified amLODIPine (NORVASC) 10 mg Take 10 mg by mouth once daily. loratadine 10 mg cap Take 1 capsule every day by oral route as needed pravastatin (PRAVACHOL) 40 mg Take 40 mg by mouth daily at bedtime. gabapentin (NEURONTIN) 600 mg Take 600 mg by mouth daily at bedtime. Qty: 90 capsule Refills: 0 Associated Diagnoses:Chronic low back pain, unspecified back pain laterality, with sciatica presence unspecified metoprolol succinate ER (TOPROL XL) 100 mg Take 100 mg by mouth once daily. Qty: 90 tablet Refills: 4 QUEtiapine (SEROquel) 400 mg Take 400 mg by mouth daily at bedtime. Qty: 60 tablet Refills: 0 !! COMPOUNDED PRESCRIPTION One Piece Ostomy Pouch Item Type: Coloplast Sensura One Piece Non-Sterile with Window 07/05-05/01'' ?5/Box ICD 10: Prolapsed Stoma K94.09 Qty: 1 Box Refills: 0 !! COMPOUNDED PRESCRIPTION Paste: Convatec Stomahesive 1 tube ICD 10: Prolapsed Stoma K 94.09 Qty: 1 Tube Refills: 0 MULTIVIT WITH IRON,MINERALS (MULTIVITAMIN AND MINERALS ORAL) 1 capsule Take 1 capsule by mouth once daily. albuterol HFA (PROVENTIL HFA, VENTOLIN HFA) 2 Puffs Inhale 2 Puffs as instructed every 4 hours as needed for Wheezing/Shortness of Breath. fluticasone (FLONASE) 1 [place] Use 1 [place] in the nose once daily as needed. nitroglycerin sublingual (NITROSTAT) 0.[address] ONE(1) TABLET UNDER TONGUE NEEDED FOR CHEST PAIN. IF NO PAIN RELIEF CALL 911 Qty: 25 tablet Refills: 0 losartan (COZAAR) 100 mg Take 100 mg by mouth once daily. furosemide (LASIX) 40 mg Take 40 mg by mouth once daily as needed. !! - Potential duplicate medications found. Please discuss with provider. Future Appointments: Follow Up with PCP: Bijan Perez MD Follow Up with straightening machine operator and GI Appointments for Next 45 Days None The patient's risk for 30-day readmission is determined using the following contributing factors: Pt variables contributing to increased readmission risk: 15 Active Medication Orders 14 Most Recent BUN Result 12 Number of Hospitalizations (12 mos.) 11 Number of Previous ED Visits (6 mos.) 9.4 First Resulted Calcium During Admission 1 Previous ED Visit (6 mos.)? 1 Insurance - Medicare TIME OF CARE: Discharge Management: I personally spent greater than 30 minutes involved in the discharge management of this patient. SIGNATURE: Helena Issa APRN.CNP PATIENT NAME: Maxx Knott DATE: April 07, 2018 TIME: 11:18 AM PAGER/CONTACT #: CHAVA THOMAS PROG Observed: 04/07/2018 Status: COMPLETED Source: [place] 9:55 AM [facility] REPOSITORY HNO ID: [id number] Author: Lamar (Rn) MITCHELL Saeed Service: Nursing Author Type: Registered Nurse Type: Nursing Progress Note Filed: 04/07/2018 11:35 AM Note Text: Pt BP 184/81. Administered morning lostartan and metoprolol however pt refusing lasix. Pt requesting IV dilaudid for chest discomfort. RN informs pt that Tylenol is ordered for pain right now. Offers dose to try, and can re evaluate pain after dose. Pt states if he cannot have his pain medicine there is no reason to be here. During med pass pt is removing telemetry and requesting IV be removed states he wants to leave. Dangers of high blood pressure discussed with pt by RN however pt continues to get dressed. Vanesa ABREU notified. RN discuss with pt that if he wishes to leave it would be against medical advice. Request for pt to remain for blood pressure recheck in 1 hour as his BP meds had just been administered and to continue monitor on tele. Pt refusing stating I have a doctor and i'm ready to go. IV removed. Vanesa ABREU at bedside speaking with pt. PROGRESS Observed: 04/07/2018 Status: COMPLETED Source: [place] 3:15 AM [facility] REPOSITORY HNO ID: [id number] Author: Downtime Note Service: (none) Author Type: (none) Type: Progress Notes Filed: 04/07/2018 3:22 AM Note Text: Epic Scheduled Downtime: 04/07/2018 1:00:00 AM to 04/07/2018 3:07:00 AM TROPONIN I Collected: 04/07/2018 Status: F Source: [facility] 12:55 AM HEALTH SYSTEM REPOSITORY TYPE CODE TESTS RESULT OUT OF REFERENCE UNITS RANGE LAB TROP(LOINC) 0.015-0.045 ng/ml Troponin I < 0.015 Performed By: #### TROP #### [facility] [address] [address] HISTORY PHYSICAL Observed: 04/06/2018 Status: COMPLETED Source: [place] 11:37 PM CLINIC OTHER CAMPUS REPOSITORY HNO ID: [id number] Author: Brenna Elena Service: Hospital Medicine Author Type: Nurse Practitioner Type: HANDP Filed: 04/07/2018 12:50 AM Note Text: DEPARTMENT OF HOSPITAL MEDICINE HISTORY AND PHYSICAL EXAM SERVICE DATE: 04/06/2018 SERVICE TIME: 12:40 AM Primary Care Physician: Bijan Perez MD NIGHT AND WEEKEND COVERAGE: From 7am - 7pm, please call ROU After 7pm, please call cross cover pager #[phone] Subjective CHIEF COMPLAINT: Chest and abd pain HPI: This is a 67 year old male who presents with chest and abd pain. Pt states he was shaving in the bathroom and he started to get chest pain. He states he fell on water at that time. Pt states the chest pain was deep achy pain mid strunum. No radiation of the pain. Pt states he had nausea and sob at that time. Pt states he hit the sink counter during the episode of CP and hit his ileostomy. Per the ER dr pt told him he was bearing down at some point and it popped out. The Er dr iced it and pushed it back in. Pt states this procedure when well in the ER. At this time pt has mod amt of brown mushy stool and complaints of slight pain. Pt is aware he will not get pain meds on the ROU At this time pt states his chest pain is tight feeling in the mid sternum area. Pt is aware of no pain meds in [place], tele, troponin PAST MEDICAL HISTORY Diagnosis Date - AAA (abdominal aortic aneurysm) without rupture (HCC) 05/13/[address] a/p - CAD (coronary artery disease) 2005 CAD s/p CABG x3 ([id number]-evzeyv, SBN-ZTR-qydfhm, MWH-DY1-wsmyjfib) (2006 at [facility]) - COPD (chronic obstructive pulmonary disease) ([facility]) - Current every day smoker PT SMOKES A PIPE - Diverticulitis Perforated Diverticulitis - Diverticulitis of sigmoid colon 05/15/2017 Added automatically from request for surgery [id number] - Hx of CABG - Pacemaker 02/16/2017 s/p PPM () 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 - Peritonitis (HCC) PAST SURGICAL HISTORY Procedure Laterality Date - APPENDECTOMY HX - COLOSTOMY 07/2016 Diverting Loop Colostomy of the Transverse Colon - HEART SURGERY HX triple bypass 10 yrs ago - PPM IMPLANT - STENT - CORONARY FAMILY HISTORY Problem Relation Age of Onset - Coronary Artery Disease Father - Hyperlipidemia Father Social History Substance Use Topics - Smoking status: Current Every Day Smoker Packs/day: 0.50 Years: 35.00 Types: Pipe, Cigarettes - Smokeless tobacco: Never Used Comment: Quit cigarettes 11-16-16 now smoking 4 pipes as of 04-18-17 - Alcohol use No MEDICATIONS: Reviewed (Not in a hospital admission) ALLERGIES Allergen Reactions - Altaseptic Unknown - Brilinta [Ticagrelo* Unknown - Crestor [Rosuvastat* Myalgia - Hctz [Amiloride-Hyd* Swelling - Moxifloxacin Swelling - Other [place]-3s Unknown brelinta - Ramipril Swelling Other reaction(s): Angioedema Other reaction(s): Facial swelling - Rosuvastatin Other: See Comments - Simvastatin Myalgia, Other: See Comments Other reaction(s): Facial swelling - Voltaren [Diclofena* Unknown REVIEW OF SYSTEM: PAIN ASSESSMENT: Negative for pain, history of chronic pain, or current treatment for a chronic pain condition. GENERAL: No weight loss, malaise or fevers HEENT: Negative for frequent or significant headaches, No changes in hearing or vision, no nose bleeds or other nasal problems NECK: Negative for lumps, goiter, pain and significant neck swelling RESPIRATORY: Negative for cough, hemoptysis, wheezing, COPD, dyspnea or shortness of breath CARDIOVASCULAR: Chest pain, Hypertension GI: No nausea, vomiting, or diarrhea : No history of dysuria, frequency or incontinence MUSCULOSKELETAL: Negative for joint pain or swelling, back pain or muscle pain NEURO: No history of headaches, syncope, paralysis, seizures or tremors Objective PHYSICAL EXAM: BP 180/71 Pulse 76 Temp (Src) 98.4 (Oral) Resp 18 Ht 5' 8 (1.73m) Wt 190 lb (86.2kg) SpO2 94% BMI 28.90 kg/(m2). Physical Exam Performed: GENERAL: Alert, no distress, cooperative SKIN: Skin color, texture, turgor normal. No rashes or lesions. HEAD/SINUSES: No significant findings EYES: PERRLA, EOMI NECK: No jugulovenous distention, No carotid bruits, Carotid pulse normal contour, Supple LUNGS: Lungs clear to auscultation, Good diaphragmatic excursion CARDIAC: Normal S1 and S2; no rubs, murmurs, or gallops ABDOMEN: Abdomen soft, non-tender, BS normal, No masses or organomegaly and ileostomy stoma pink +mod amt brown mushy stool EXTREMITIES: Extremities normal, no deformities, edema, clubbing or skin discoloration. Good capillary refill., No ulcers NEURO: Gait normal. Reflexes normal and symmetric. Sensation grossly intact, Cranial nerves II-XII intact PULSES: 2+ radial, 2+ carotid The remainder of the physical exam is noncontributory. Lines, Drains, and Airways Line Peripheral Left Wrist 20 Gauge -- days Reviewed lines, drains, AND airways. Need to be continued for medciations DATA: Diagnostic tests reviewed for today's visit: Most recent labs and imaging results. Assessment/Plan Chest pain--- Heart score 5 troponin neg in ER x2 --stress test in jan neg -- troponin --tele --recent labs in January Abdominal pain-- pt has ileostomy which was pushed back in in ER pt was given dilaudid X1 -- prn tylenol HTN-- pts BP was elevated in ER he was given IV meds --resume home meds of norvasc and cozaar Smoker-- pt is not interested in quitting Medication and Non-Pharmacologic VTE Prophylaxis/Anticoagulants VTE Prophylaxis: VTE prophylaxis appropriate Disposition: Home Plan of care discussed with: Patient SIGNATURE: Brenna Elena PATIENT NAME: Maxx Knott DATE: April 06, 2018 TIME: PAGER/CONTACT #: [phone] [id number] ED NOTE Observed: 04/06/2018 Status: COMPLETED Source: [place] 10:45 PM CLINIC OTHER CAMPUS REPOSITORY HNO ID: [id number] Author: Lay KingRn) MITCHELL Burnett Service: Emergency Medicine Author Type: Registered Nurse Type: ED Notes Filed: 04/06/2018 10:45 PM Note Text: Inquired dr. Monge about food, stated Okay to eat. Tech obtaining boxed lunch/beverage for pt. [facility] TROPONIN I Collected: 04/06/2018 Status: F Source: [place] [employer] [facility] 9:00 PM HEALTH SYSTEM REPOSITORY TYPE CODE TESTS RESULT OUT OF REFERENCE UNITS RANGE LAB ERTRP(LOINC 0.015-0.045 ng/ml ) [facility] Troponin I < 0.015 Performed By: #### ERTRP #### [facility] [address] [address] [address] ABDOMEN AND PELVIS Observed: 04/06/2018 Status: F Source: [facility] WITH CONTRAST 8:42 PM HEALTH SYSTEM REPOSITORY Performed at [facility] APPROVED BY: Dileep Oneal MD EXAM TITLE: CT OF THE ABDOMEN AND PELVIS WITH INTRAVENOUS CONTRAST DATE:04/06/2018 20:37 COMPARISON: CT abdomen October 2017 CLINICAL INDICATION/HISTORY: Chest pain and stomach issues; abdominal pain CT Radiation dose: Integrated Dose-length product (DLP) for this visit = 447 mGy*cm. CT Dose Reduction Employed: Automated exposure control (AEC) was used. TECHNIQUE: Following the administration of 150 cc Omnipaque 300 intravenous contrast axial images were obtained of the abdomen and pelvis in a single portal-venous phase. Oral contrast was not administered. FINDINGS: Included lung bases and lower thorax: A small portion of the stomach is again noted to herniate through the left hemidiaphragm. The lung bases are clear. Included osseous structures: No acute osseous abnormality. Multilevel degenerative disc disease. At L4-L5 there is a posterior disc osteophyte with moderate appearing central canal stenosis. Liver: Normal in size and appearance. No focal lesion or ductal dilatation. Gallbladder and extrahepatic bile duct: Unremarkable. No ductal dilatation is seen. Pancreas and spleen: Unremarkable Adrenal glands: There is nodular thickening of the left adrenal gland. This is not significantly changed since September 2016. This is therefore likely benign. Right adrenal is unremarkable. Kidneys: Right kidney is unremarkable. There are 2 left-sided renal cysts. No hydronephrosis or calculi of either kidney. Ureters: No abnormal dilatation or obstructing calculus is seen. Urinary Bladder: There is hyperdense material within the urinary bladder which resembles excreted IV contrast. This is of uncertain etiology. The patient did have a contrasted exam 2 weeks ago. Pelvic Organs: The prostate is enlarged measuring 6 cm x 5.5 cm x 5.6 cm. Bowel: Severe diverticulosis of the sigmoid. No focal evidence of acute diverticulitis. There is a diverting colostomy within the right mid abdominal region. There is small bowel which extends into t he parastomal region. This appears somewhat increased compared to the prior. This does not appear to be obstructive. The small bowel is otherwise unremarkable. The appendix is not visualized, however there is no dilated tubular structure or inflammatory change within the right lower quadrant/cecal region which would indicate acute appendicitis. No peritoneal free air, free fluid or lymphadenopathy is seen. The aorta is mildly ectatic. IMPRESSION: 1. 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 This appears perhaps somewhat more extensive than on the exam of 03/23/2018. There is no evidence of obstruction at this time. 2. Severe sigmoid diverticulosis. No evidence of acute diverticulitis 3. IV contrast within the urinary bladder. This is of uncertain origin. The contrast on today's exam had not reached the ureters at the time of imaging. Correlate with any recent IV contrast adminis tration. The patient did have IV contrast 2 weeks ago. ED NOTE Observed: 04/06/2018 Status: COMPLETED Source: [place] 7:51 PM [facility] REPOSITORY HNO ID: [id number] Author: Batsheva Toth) MITCHELL Torres Service: Emergency Medicine Author Type: Registered Nurse Type: ED Notes Filed: 04/06/2018 7:51 PM Note Text: CT notified pt ready for imaging ED NOTE Observed: 04/06/2018 Status: COMPLETED Source: [place] 7:40 PM [facility] REPOSITORY HNO ID: [id number] Author: Batsheva Toth) MITCHELL Torres Service: Emergency Medicine Author Type: Registered Nurse Type: ED Notes Filed: 04/06/2018 7:41 PM Note Text: Pt attached to opal miner and cont pulse ox CHEST 1 VIEW Observed: 04/06/2018 Status: F Source: [facility] 7:16 PM HEALTH SYSTEM REPOSITORY Performed at [facility] APPROVED BY: Dileep Oneal MD EXAMINATION: CHEST RADIOGRAPH (PORTABLE SINGLE VIEW AP) Exam Date/Time: 04/06/2018 7:16 PM Indication: Shortness of breath Comparison: Chest x-ray 03/08/[address] 03/23/2018 RESULT: Lines, tubes, and devices: Pacemaking device. Lungs and pleura: No focal consolidation, mass or pleural effusion is seen. Cardiomediastinal silhouette: Normal in appearance. Bony thorax is appropriate for the patient's age. Again noted is a small herniation through the left hemidiaphragm. No pneumothorax is seen. IMPRESSION: No acute or active intrathoracic abnormality is seen. ED PROV NOTE Observed: 04/06/2018 Status: COMPLETED Source: [place] 6:31 PM CLINIC OTHER CAMPUS REPOSITORY HNO ID: [id number] Author: Lloyd Ash Service: Emergency Medicine Author Type: Physician Type: ED Provider Notes Filed: 04/08/2018 12:55 AM Note Text: ED Provider Note Patient Name: Maxx Knott SERVICE DATE: 04/06/18 History Patient presents with: Chest Pain: States tightness in midsternal area for the last half hour. States he slipped on a rug in the bathroom and hit his chest on the counter. +SOB +nausea +diaphoresis -LOC -hit head Abdominal Pain: Patient's colostomy popped out when he slipped as well. Here for evaluation of chest pain. Symptoms started around 4:30 PM this evening while he was shaving. He describes it as substernal and heavy. Radiates to the left side. No shortness of breath. No pleuritic pain. No palpitations. He took a total of 3 doses of sublingual nitroglycerin shortly after the symptoms started. He said they did improve his symptoms however there is starting to come back. He has a known history of coronary artery disease. Status post CABG and stents. He also has a history of perforated diverticulitis and currently has an ostomy bag. He says he does have diffuse abdominal cramping more severe on the left side. He says ostomy output has been normal. No dysuria. No fevers or chills. No other symptoms or complaints. 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 - Peritonitis (HCC) PAST SURGICAL HISTORY Procedure Laterality Date - APPENDECTOMY HX - COLOSTOMY 07/2016 Diverting Loop Colostomy of the Transverse Colon - HEART SURGERY HX triple bypass 10 yrs ago - PPM IMPLANT - STENT - CORONARY FAMILY HISTORY Problem Relation Age of Onset - Coronary Artery Disease Father - Hyperlipidemia Father Social History Social History Main Topics - Smoking status: Current Every Day Smoker Packs/day: 0.50 Years: 35.00 Types: Pipe, Cigarettes - Smokeless tobacco: Never Used Comment: Quit cigarettes 11-16-16 now smoking 4 pipes as of 04-18-17 - Alcohol use No - Drug use: No - Sexual activity: Not Currently ALLERGIES Allergen Reactions - Altaseptic Unknown - Brilinta [Ticagrelo* Unknown - Crestor [Rosuvastat* Myalgia - Hctz [Amiloride-Hyd* Swelling - Moxifloxacin Swelling - Other [place]-3s Unknown brelinta - Ramipril Swelling Other reaction(s): Angioedema Other reaction(s): Facial swelling - Rosuvastatin Other: See Comments - Simvastatin Myalgia, Other: See Comments Other reaction(s): Facial swelling - Voltaren [Diclofena* Unknown Review of Systems Constitutional: Negative for chills, fatigue and fever. HENT: Negative for congestion, ear pain, rhinorrhea and sore throat. Respiratory: Negative for cough, shortness of breath and wheezing. Cardiovascular: Positive for chest pain. Negative for palpitations and leg swelling. Gastrointestinal: Positive for abdominal pain and nausea. Negative for diarrhea and vomiting. Endocrine: Negative for cold intolerance, heat intolerance, polydipsia and polyphagia. Genitourinary: Negative for dysuria, frequency and testicular pain. Musculoskeletal: Negative for arthralgias, back pain and neck pain. Skin: Negative for color change, pallor and rash. Neurological: Negative for speech difficulty, light-headedness, numbness and headaches. Hematological: Negative for adenopathy. Does not bruise/bleed easily. Physical Exam BP 160/72 Pulse 97 Temp (Src) 98.2 (Oral) Resp 16 Ht 5' 8 (1.73m) Wt 190 lb (86.2kg) SpO2 96% BMI 28.90 kg/(m2). Physical Exam Constitutional: He is oriented to person, place, and time. He appears well-developed and well-nourished. No distress. HENT: Head: Normocephalic and atraumatic. Eyes: Pupils are equal, round, and reactive to light. Conjunctivae and EOM are normal. Neck: Normal range of motion. Neck supple. No JVD present. No tracheal deviation present. Cardiovascular: Normal rate, regular rhythm, normal heart sounds and intact distal pulses. No murmur heard. Pulmonary/Chest: Effort normal and breath sounds normal. No stridor. No respiratory distress. He has no wheezes. He exhibits no tenderness. Abdominal: Soft. He exhibits no distension and no mass. There is tenderness. There is no rebound and no guarding. Ostomy site in right lower quadrant of the abdomen. Tissue is pink and appears well perfused. No tenderness. Easily reducible. Musculoskeletal: Normal range of motion. He exhibits no edema or deformity. Neurological: He is alert and oriented to person, place, and time. No sensory deficit. He exhibits normal muscle tone. Coordination normal. Skin: Skin is warm and dry. Capillary refill takes less than 2 seconds. No rash noted. No pallor. Nursing note and vitals reviewed. Diagnostic Testing ED Labs Ordered and Reviewed COMPREHENSIVE METABOLIC PANEL (AK,AV,EU,FV,HL,DEMARCO,MM,SP) - Abnormal; Notable for the following: Result Value Ref Range Glucose 140 (*) 70 - 99 mg/dL AST 49 (*) 9 - 37 U/L All other components within normal limits CBC + AUTO DIFF (AK,AV,EU,FV,HL,DEMARCO,MM,SP) - Abnormal; Notable for the following: RBC 4.61 (*) 4.63 - 6.08 mil/cmm RDW-SD 46.5 (*) 36.1 - 45.8 fl Abs. Neut(Anc) 5.76 (*) 1.78 - 5.38 thou/cmm All other components within normal limits [facility] TROPONIN I ([facility] ED) MDRD GFR Procedures ED Course / Clinical Impression ED Course as of Apr 08 005 Lloyd Mihir's Documentation Sat Apr 06, 2018 [id number] Heart Score: >65 +2 Moderately suspicious +1 1-2 risk factors +1 Under normal limit +0 Non-specific repolarization abnormality +1 Total: 5 Clinical Impressions as of Apr 08 53 Chest pain, unspecified type MDM / Disposition / Plan Hemodynamically stable on arrival. Given nitroglycerin however symptoms have not completely resolved. Given 0.5 mg of Dilaudid. He is known history of coronary artery disease. He has been admitted for chest pain recently and has had a recent stress test. In addition to this he is concerned that his ostomy site at protruding bowel. This does appear to be slightly worsened until today CT scan from prior CTs. An ice pack was placed over top and now spontaneously reduced without any difficulty whatsoever. The tissue is pink and nonfriable. He is no tenderness over this area. EKG and laboratory studies performed. Troponin is negative. Risk stratified using heart score pathway. Appropriate for observation admission. Case discussed with observation unit team accepted patient for admission. SIGNATURE: DO Lloyd Allan 04/08/18 0055 ED NOTE Observed: 04/06/2018 Status: COMPLETED Source: [place] 6:13 PM CLINIC OTHER CAMPUS REPOSITORY HNO ID: [id number] Author: Clover (Rn) MITCHELL Cunha Service: Emergency Medicine Author Type: Registered Nurse Type: ED Notes Filed: 04/06/2018 6:13 PM Note Text: Waiting to see doctor. HEMOGRAM/DIFF Collected: 04/06/2018 Status: F Source: [facility] 5:42 PM HEALTH SYSTEM REPOSITORY TYPE CODE TESTS RESULT OUT OF REFERENCE UNITS RANGE LAB WBC(LOINC) 4.23-9.07 thou/cmm WBC 8.68 LAB RBC(LOINC) 4.63-6.08 mil/cmm Low RBC 4.61 LAB HGB(LOINC) 13.7-17.5 g/dL Hgb 14.2 LAB HCT(LOINC) 40.1-51.0 % Hct 41.9 LAB MCV(LOINC) 83.2-95.6 fl MCV 90.9 LAB MCH(LOINC) 25.7-32.2 pg MCH 30.8 LAB MCHC(LOINC 32.3-36.5 % ) MCHC 33.9 LAB RDW(LOINC) 11.6-14.4 % RDW 13.9 LAB RDWSD(LOIN 36.1-45.8 fl C) RDW SD High 46.5 LAB PLT(LOINC) 141-365 thou/cmm Platelet 280 LAB MPV(LOINC) 8.7-12.0 fl MPV 10.1 LAB SEG(LOINC) % Seg Neutrophil 66.4 LAB IGRE(LOINC % ) Immature Grans 0.10 LAB LYMPH(LOIN % C) Lymphocyte 23.3 LAB MNO(LOINC) % Monocyte 7.1 LAB EOSIN(LOIN % C) Eosinophil 2.8 LAB BASO(LOINC % ) Basophil 0.3 LAB SEGN(LOINC 1.78-5.38 thou/cmm ) Abs. High Neut (ANC) 5.76 LAB IGAB(LOINC 0.00-0.05 thou/cmm ) Abs Immature Grans 0.01 LAB LYMN(LOINC 0.84-2.85 thou/cmm ) Abs. Lymph 2.02 LAB MONON(LOIN 0.30-0.82 thou/cmm C) Abs. [place] 0.62 LAB EOSN(LOINC 0.04-0.54 thou/cmm ) Abs. Eosin 0.24 LAB BASON(LOIN 0.01-0.08 thou/cmm C) Abs. Baso 0.03 Performed By: #### CBCD1 #### [place] [address] [facility] TROPONIN I Collected: 04/06/2018 Status: F Source: [address] SYSTEM REPOSITORY TYPE CODE TESTS RESULT OUT OF REFERENCE UNITS RANGE LAB ERTRP(LOINC 0.015-0.045 ng/ml ) [facility] Troponin I < 0.015 Performed By: #### ERTRP #### [place] [address] COMPREHENSIVE PANEL Collected: 04/06/2018 Status: F Source: [address] SYSTEM REPOSITORY TYPE CODE TESTS RESULT OUT OF REFERENCE UNITS RANGE LAB NA(LOINC) 136-145 mEq/L Sodium Blood 136 LAB K(LOINC) 3.5-5.1 mEq/L Potassium Blood 4.5 Result Comment: SPECIMEN SLIGHTLY HEMOLYZED LAB CL(LOINC) 98-107 mEq/L Chloride Blood 103 LAB CO2(LOINC) 21-32 mEq/L CO2 Blood 25 LAB GLU(LOINC) 70-99 mg/dL Glucose High Blood 140 LAB BUN(LOINC) 7-18 mg/dL BUN Blood 14 LAB CREA(LOINC) 0.67-1.17 mg/dL Creatinine Blood 0.81 LAB CA(LOINC) 8.5-10.1 mg/dL Calcium Blood 9.4 LAB ALB(LOINC) 3.4-5.0 g/dL Albumin Blood 3.7 LAB TP(LOINC) 6.4-8.2 g/dL Total Protein 7.7 LAB AST(LOINC) 9-37 U/L AST-SGOT High Blood 49 Result Comment: SPECIMEN SLIGHTLY HEMOLYZED LAB ALT(LOINC) 12-78 U/L ALT-SGPT Blood 34 LAB ALKP(LOINC) 46-116 U/L Alk Phosphatase 95 LAB BILIT(LOINC) 0.2-1.0 mg/dL Total Bilirubin 0.5 LAB ANGAP(LOINC) 8-16 Anion Gap 13 Performed By: #### P14 #### [place] [address] MDRD GFR Collected: 04/06/2018 Status: F Source: [facility] 5:42 PM HEALTH SYSTEM REPOSITORY TYPE CODE TESTS RESULT OUT OF RANGE REFERENCE UNITS LAB GFRFN(LOINC >60mL/min/1.73m ) 2 eGFR >60 Result Comment: If the patient is , multiply the result by 1.210. Performed By: #### GFR #### [place] [address] ED NOTE Observed: 04/06/2018 Status: COMPLETED Source: [place] 5:41 PM CLINIC OTHER [place] REPOSITORY HNO ID: [id number] Author: Clover (Rn) MITCHELL Cunha Service: Emergency Medicine Author Type: Registered Nurse Type: ED Notes Filed: 04/06/2018 5:42 PM Note Text: Pt on monitor EKG (AK,AV,EU,FV,HL,DEMARCO,MM,SP) Observed: Status: F Source: [place] 04/06/2018 5:05 PM CLINIC OTHER CAMPUS REPOSITORY NAME : MAXX KNOTT PID : [id number] : 1950 Gender : Male Race : ORD : [id number] Procedure Date : Apr 06 2018 17:05 Edit Date : Apr 12 2018 03:02 Diagnosis:NORMAL SINUS RHYTHM POSSIBLE LEFT ATRIAL ENLARGEMENT POSSIBLE INFERIOR INFARCT (CITED ON OR BEFORE 08-MAR-2018) ABNORMAL ECG WHEN COMPARED WITH ECG OF 23-MAR-2018 15:51, T WAVE INVERSION NO LONGER EVIDENT IN ANTERIOR LEADS Confirmed by MD Resendiz Thomas ([id number]) on 04/12/2018 3:02:04 AM Ventricular Rate : 93 BPM Atrial Rate : 93 BPM P-R Interval : 168 ms QRS Duration : 104 ms Q-T Interval : 370 ms QTC Calculation(Bezet) : 460 ms P [place] : 51 degrees R [place] : 55 degrees T [place] : 32 degrees Test Reason : Chest Pain Location : 4 : [facility] Overread By : MD Resendiz Thomas Editted By : MD Resendiz Thomas Referred By : PONCHO MCCAIN Acquired by : Raissa Uribe BD CT ABDOMEN AND Observed: 04/05/2018 Status: F [facility] REPOSIT[facility] Patient Name: MAXX KNOTT STUDY: BD CT ABDOMEN AND PELVIS WITH CONTRAST; 04/05/2018 8:55 pm INDICATION: Signs/Symptoms: STOMA site hernia?, Lie Flat: Yes. COMPARISON: CT dated 11/06/2017 ACCESSION NUMBER(S): [id number] ORDERING CLINICIAN: RADHIKA ARRIAGA TECHNIQUE: CT of the abdomen was performed without IV contrast. Contiguous axial images were obtained at 3 mm slice thickness through the abdomen. Coronal and sagittal reconstructions at 3 mm slice thickness were performed. 90 ml of contrast material Isovue 370 were administered intravenously without immediate complication. FINDINGS: LOWER CHEST: No consolidation, pleural effusion or pneumothorax. No focal mass lesion. The heart is within normal limits size and configuration. Blebs are present within the visualized bases. Incompletely visualized pacing leads. ABDOMEN: LIVER: The liver is normal in size without evidence of focal liver lesions. BILE DUCTS: The intrahepatic and extrahepatic ducts are not dilated. GALLBLADDER: No calcified stones. No wall thickening. PANCREAS: The pancreas appears unremarkable without evidence of ductal dilatation or masses. SPLEEN: The spleen is normal in size without focal lesions. The splenule is noted. ADRENAL GLANDS: There is nodular hypertrophy of the left adrenal gland. KIDNEYS AND URETERS: Stable hypoattenuating lesions within the bilateral kidneys, not fully evaluated on this examination, however appear grossly stable as compared to prior examination. The largest cyst on the left measures up to 2.5 cm in measures intermediate Hounsfield units, but likely corresponds to a cyst without vascularity on renal ultrasound dating back to 02/05/2017. The kidneys are normal in size and enhance symmetrically. No hydroureteronephrosis or nephroureterolithiasis is identified. PELVIS: BLADDER: The urinary bladder appears normal without abnormal wall thickening. REPRODUCTIVE ORGANS: The prostate is enlarged measuring approximately 5.6 cm, similar to prior examination. Correlate with PSA levels. BOWEL: The stomach is unremarkable. There is again a right-sided colostomy involving colon at the hepatic flexure. No additional loops of bowel are present herniating into the stomal defect, as was seen on prior CT abdomen 11/06/2017. The loops of bowel coursing into the stoma are decompressed. No proximally dilated loops of bowel are evident.. Fat does herniate into the hernia/stomal defect. Extensive colonic diverticuli visualized without evidence of diverticulitis, most pronounced in the sigmoid colon where there is associated wall thickening, unchanged from prior imaging.. The appendix is not visualized. VESSELS: Redemonstrated infrarenal abdominal aortic aneurysm measuring up to 3 cm, not significantly increased in size from prior imaging. There are moderate aortoiliac calcifications. PERITONEUM/RETROPERITONEUM/LYMPH NODES: No ascites or free air, no fluid collection. No enlarged mesenteric lymph nodes. BONES AND ABDOMINAL WALL: No suspicious osseous lesions are identified. The abdominal wall soft tissues appear normal. IMPRESSION: 1. Small fat containing parastomal hernia. No proximally dilated loops of bowel are present to suggest obstruction. No surrounding inflammatory stranding is present to suggest strangulation. 2. The prostate is enlarged measuring approximately 5.6 cm, similar to prior examination. Correlate with PSA levels. 3. Stable hypoattenuating lesions within the bilateral kidneys, not fully evaluated on this examination, however appear grossly stable as compared to prior examination. While the largest lesion on the left measures intermediate Hounsfield units, this likely corresponds to a cyst without internal vascularity on renal ultrasound 02/05/2017. Follow-up ultrasound could be obtained as clinically warranted. 4. Colonic diverticulosis without diverticulitis. Associated sigmoid colonic wall thickening is unchanged from prior imaging. 5. Stable infrarenal abdominal aortic aneurysm measuring up to 3 cm. Electronically signed by: DUNG KAHN MD COAGULATION SCREEN Collected: 04/05/2018 Status: F Source: [place] 7:00 PM [facility]ITALS REPOSITORY TYPE CODE TESTS RESULT OUT OF REFERENCE UNITS RANGE LAB PT(LOINC) 9.7 - 12.7 sec PROTHROMBIN High TIME 13.4 Result Comment: Note new reference range as of 02/19/2018. LAB INR(LOINC) 0.9 - 1.1 High PT, INR 1.2 LAB APTT(LOINC) 28 - 38 sec APTT 30 Result Comment: Note new reference range as of 02/19/2018. THE APTT IS NO LONGER USED FOR MONITORING UNFRACTIONATED HEPARIN THERAPY. FOR MONITORING HEPARIN THERAPY, USE THE HEPARIN ASSAY. Performed By: #### COAGS #### [facility] [address] [place] [id number] BASIC METABOLIC PANEL Collected: 04/05/2018 Status: F Source: [place] 7:00 [facility] REPOSITORY TYPE CODE TESTS RESULT OUT OF REFERENCE UNITS RANGE LAB GLU(LOINC) 74 - 99 mg/dL GLUCOSE High 101 LAB SOD(LOINC) 136 - 145 mmol/L SODIUM 143 LAB K(LOINC) 3.5 - 5.3 mmol/L POTASSIUM 3.7 LAB CHLOR(LOIN 98 - 107 mmol/L C) CHLORIDE 105 LAB BIC(LOINC) 21 - 32 mmol/L BICARBONATE 30 LAB ANGAP(LOIN 10 - 20 mmol/L C) ANION GAP 12 LAB UREA(LOINC 6 - 23 mg/dL ) UREA NITROGEN 16 LAB CREA(LOINC 0.50 - 1.30 mg/dL ) CREATININE 1.09 LAB GFRFN(LOIN >60 mL/min/1.7 C) 3m2 GFR-NON AM. >60 LAB GFRAA(LOIN >60 mL/min/1.7 C) 3m2 GFR- AM. >60 Result Comment: CALCULATIONS OF ESTIMATED GFR ARE PERFORMED USING THE MDRD STUDY EQUATION FOR THE IDMS-TRACEABLE CREATININE METHODS. CLIN CHEM 2007;53:766-72 LAB CA(LOINC) 8.6 - 10.6 mg/dL CALCIUM 9.8 Performed By: #### BMP #### [facility] [address] [place] [address] CBC AND DIFFERENTIAL Collected: 04/05/2018 Status: F [facility] [place] [facility] TYPE CODE TESTS RESULT OUT OF REFERENCE UNITS RANGE LAB WBCR(LOINC 4.4 - 11.3 x10E9/L ) WBC 10.8 LAB NRBC(LOINC 0.0-0.0 /100 WBC ) NUCLEATED RBC 0.0 LAB RBCCT(LOIN 4.50 - 5.90 x10E12/L C) Low RBC 3.72 LAB HGB(LOINC) 13.5 - 17.5 g/dL Low HGB 11.6 LAB HCT(LOINC) 41.0 - 52.0 % Low HCT 33.3 LAB MCV(LOINC) 80 - 100 fL MCV 90 LAB MCHC2(LOIN 32.0 - 36.0 g/dL C) MCHC 34.8 LAB PLTCT(LOIN 150 - 450 x10E9/L C) PLT 334 LAB RDWCV(LOIN 11.5 - 14.5 % C) RDW-CV 13.9 LAB NEUT(LOINC 40.0 - 80.0 % ) % NEUTROPHIL 64.6 LAB IG(LOINC) 0.0 - 0.9 % % AUTOMATED 0.4 IMMATURE GRAN Result Comment: Percent differential counts (%) should be interpreted in the context of the absolute cell counts (cells/L). LAB LYMPH(LOINC) 13.0 - 44.0 % % LYMPHOCYTE 23.1 LAB MONO(LOINC) 2.0 - 10.0 % % MONOCYTE 7.6 LAB EOS(LOINC) 0.0 - 6.0 % % EOSINOPHIL 3.9 LAB BASO(LOINC) 0.0 - 2.0 % % BASOPHIL 0.4 LAB #NEUT(LOINC) 1.20 - 7.70 x10E9/L NEUTROPHIL 6.98 LAB #LYMP(LOINC) 1.20 - 4.80 x10E9/L LYMPHOCYTE 2.50 LAB #MONO(LOINC) 0.10 - 1.00 x10E9/L MONOCYTE 0.82 LAB #EOS(LOINC) 0.00 - 0.70 x10E9/L EOSINOPHIL 0.42 LAB #BASO(LOINC) 0.00 - 0.10 x10E9/L BASOPHIL 0.04 Performed By: #### CBCDF #### [facility] [address] [place] [address] LACTATE Collected: 04/05/2018 Status: F Source: [place] 6:58 PM [facility]ITALS REPOSITORY TYPE CODE TESTS RESULT OUT OF REFERENCE UNITS RANGE LAB LACT(LOINC) 0.4 - 2.0 mmol/L LACTATE 1.4 Result Comment: Venipuncture immediately after or during the administration of Metamizole may lead to falsely low results. Testing should be performed immediately prior to Metamizole dosing. Performed By: #### LACT #### [facility] [address] [place] [address] TYPE + SCREEN Collected: 04/05/2018 Status: F Source: [place] 6:58 HOSPITALS REPOSITORY TYPE CODE TESTS RESULT OUT OF REFERENCE UNITS RANGE LAB ABORH(LOINC ) ABO TYPE O LAB RH(LOINC) RH TYPE POS LAB ABSC(LOINC) ANTIBODY NEG SCREEN Performed By: #### T+S #### [facility] [address] [place] [address] COAGULATION SCREEN Collected: 04/05/2018 Status: CANCELLED Source: [place] [id number] [place] [address] REPOSITORY Order Comment: TEST COAGULATION SCREEN WAS CANCELLED, 04/05/2018 18:58 ?Cancel Reason: Patient Discharged. TYPE CODE TESTS RESULT OUT OF REFERENCE UNITS RANGE LAB PT(LOINC) PROTHROMBIN TIME Canceled Result Comment: Note new reference range as of 02/19/2018. LAB INR(LOINC) Canceled PT, INR LAB APTT(LOINC) Canceled APTT Result Comment: Note new reference range as of 02/19/2018. THE APTT IS NO LONGER USED FOR MONITORING UNFRACTIONATED HEPARIN THERAPY. FOR MONITORING HEPARIN THERAPY, USE THE HEPARIN ASSAY. Performed By: #### COAGS #### [facility] [address] [place] [address] RISK SCREEN - ADULT Observed: 04/05/2018 Status: UNK Source: [facility] 6:07 PM HOSPITALS REPOSITORY Preferred Language: Preferred Language: Preferred Language for Discussing Health Care (patient/designee)[place] Citizen Advanced Directives: Advance Directive Medicalno Advance Directive Information Givenpatient/family declined Family Violence Adult: Abuse Screen: Are you or have you been threatened or abused physically, emotionally, or sexually by anyoneno Suicide / Depression: Suicide/Depression Screen: During the past month, have you often been bothered by feeling down, depressed or hopelessno During the past month, have you often had little interest or pleasure in doing thingsno Have you had any thoughts of harming yourselfno (1) Have you had any thoughts of harming anyone elseno (1) Learning Assessment (Patient): Learning Assessment (Patient): Patient is Able to be Assessed for Learningyes Factors Influencing Readiness to Learnacuteness of illness Factors that Impact Ability to Learnnone Devices/Methods Used to Communicatenone Learning Preferencesaudio Cultural Considerationsnone Developmental Considerationsnone Alevism Considerationsnone Learning Assessment (Other Learner): Learning Assessment (Other Learner): Other learner availableno Fall Risk Adult: Falls Risk: Altered Mobilityassistive device Change in Mental Statusno Relevant Medical History / Diagnosisnone Fall Historyfear of falling Altered Eliminationyes, ostomy Medications that Might Alter: equilibrium, cognitive judgement or severity of injuryantihypertensives Sensory Deficitno UNABLE or UNWILLING to Follow Directionsno Patient Identified as a Falls Riskyes Pressure Injury: Pressure Injury Present on Admissionno Respiratory / Cough /TB: ED / TB / Cough / Respiratory Screen: Do you have a coughno Smoking/Social History (Required age 13 or older): Smoking Status: unknown if ever smoked Alcohol Use: unknown Drug Use: unknown Admission Risk Screen: Significant IndicatorsComplete CAGE: CAGE: Is this an injured patient at a Trauma Center [place] [place] [facility]): no Electronic Signatures: Hue Glass (MITCHELL) (Signed 05-Apr-2018 18:08) Authored: Preferred Language, Advanced Directives, Family Violence Adult, Suicide / Depression, Learning Assessment (Patient), Learning Assessment (Other Learner), Fall Risk Adult, Pressure Injury, Respiratory / Cough /TB, Smoking/Social History (Required age 13 or older), CAGE Last Updated: 05-Apr-2018 18:08 by Hue Glass (MITCHELL) References: 1. Data Referenced From Triage - ED 04/05/2018 4:24 PM LIPASE Collected: 04/05/2018 Status: F Source: [place] 5:52 PM [facility]ITALS REPOSITORY TYPE CODE TESTS RESULT OUT OF REFERENCE UNITS RANGE LAB LIPAS(LOINC 9 - 82 U/L ) Low LIPASE 7 Result Comment: Venipuncture immediately after or during the administration of Metamizole may lead to falsely low results. Testing should be performed immediately prior to Metamizole dosing. E-jksvlp-f-benzoquinone imine (metabolite of Acetaminophen) will generate erroneously low results in samples for patients that have taken toxic doses of acetaminophen. Performed By: #### LIPAS #### [facility] [address] [place] [id number] COMPREHENSIVE PANEL Collected: 04/05/2018 Status: F Source: [place] 5:52 HOSPITALS REPOSITORY TYPE CODE TESTS RESULT OUT OF REFERENCE UNITS RANGE LAB GLU(LOINC) 74 - 99 mg/dL GLUCOSE High 105 LAB SOD(LOINC) 136 - 145 mmol/L SODIUM 141 LAB K(LOINC) 3.5 - 5.3 mmol/L POTASSIUM 3.7 LAB CHLOR(LOIN 98 - 107 mmol/L C) CHLORIDE 103 LAB BIC(LOINC) 21 - 32 mmol/L BICARBONATE 29 LAB ANGAP(LOIN 10 - 20 mmol/L C) ANION GAP 13 LAB UREA(LOINC 6 - 23 mg/dL ) UREA NITROGEN 16 LAB CREA(LOINC 0.50 - 1.30 mg/dL ) CREATININE 1.08 LAB GFRFN(LOIN >60 mL/min/1.7 C) 3m2 GFR-NON AM. >60 LAB GFRAA(LOIN >60 mL/min/1.7 C) 3m2 GFR- AM. >60 Result Comment: CALCULATIONS OF ESTIMATED GFR ARE PERFORMED USING THE MDRD STUDY EQUATION FOR THE IDMS-TRACEABLE CREATININE METHODS. CLIN CHEM 2007;53:766-72 LAB CA(LOINC) 8.6 - 10.6 mg/dL CALCIUM 10.0 LAB ALB(LOINC) 3.4 - 5.0 g/dL ALBUMIN 4.4 LAB AP(LOINC) 33 - 136 U/L ALKALINE PHOSPHATASE 92 LAB TP(LOINC) 6.4 - 8.2 g/dL TOTAL PROTEIN 7.0 LAB AST(LOINC) 9 - 39 U/L AST 20 LAB TBILI(LOINC) 0.0 - 1.2 mg/dL BILIRUBIN,TOTAL 0.3 LAB ALT(LOINC) 10 - 52 U/L ALT 22 Result Comment: Patients treated with Sulfasalazine may generate falsely decreased results for ALT. Performed By: #### CMP #### [facility] [address] [place] [address] TROPONIN I Collected: 04/05/2018 Status: F Source: [place] 5:52 [facility] REPOSITORY TYPE CODE TESTS RESULT OUT OF REFERENCE UNITS RANGE LAB TROP2(LOINC 0.00 - 0.03 ng/mL ) TROPONIN I 0.03 Result Comment: LESS THAN 0.04 NG/ML: NEGATIVE REPEAT TESTING IN FOUR TO SIX HOURS IF CLINICALLY INDICATED. 0.04 - 0.5 NG/ML: CONSISTENT WITH POSSIBLE CARDIAC DAMAGE AND POSSIBLE INCREASED CLINICAL RISK. SERIAL MEASUREMENTS MAY HELP ASSESS EXTENT OF MYOCARDIAL DAMAGE. >0.5 NG/ML: CONSISTENT WITH CARDIAC DAMAGE, INCREASED CLINICAL RISK AND MYOCARDIAL INFARCTION. SERIAL MEASUREMENTS MAY HELP ASSESS EXTENT OF MYOCARDIAL DAMAGE. . Note: Troponin I testing is performed using different testing methodology at [facility] than at other [facility]. Direct result comparisons should only be made within the same method. . Patients receiving more than 5 mg/day of biotin may have interference in test results. A sample should be taken no sooner than eight hours after previous dose. Contact [phone] for additional information. Performed By: #### TROP2 #### [facility] [address] [place] [address] TH CHEST 2 VIEW PA Observed: 04/05/2018 Status: F Source: [place] [facility]16 [facility] Patient Name: MAXX KNOTT STUDY: TH CHEST 2 VIEW PA AND LAT; 04/05/2018 5:16 pm INDICATION: Signs/Symptoms: sob. COMPARISON: 02/16/2018 ACCESSION NUMBER(S): [id number] ORDERING CLINICIAN: RADHIKA ARRIAGA FINDINGS: Patient status post median sternotomy. Stable positioning of left-sided AICD. CARDIOMEDIASTINAL SILHOUETTE: Cardiomediastinal silhouette is normal in size and configuration. 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 There is no pleural effusion, consolidation or pneumothorax. BONES: No acute osseous changes. IMPRESSION: No evidence of acute cardiopulmonary process. I personally reviewed the images/study and I agree with the findings as stated. This study was interpreted at [facility], [place], [place]. Electronically signed by: MIGEL TATUM MD PROVIDER NOTE - ED Observed: 04/05/2018 Status: COMPLETED Source: [place] [id number] 4:34 PM HOSPITALS REPOSITORY Provider Note - ED v2: Chart Review: ED NOTES ED NOTES: HPI: - 67-year-old male with history of coronary artery disease, history of prior colostomy, hypertension who presents with concern of chest pain, abdominal pain, shortness of breath. He reports that he is having a prolapsed ostomy site, he reports he was hospitalized at Hospital just to feel similar episode. Was seen by surgical services, as well as cardiology given his cardiac history. There is no immediate surgical intervention. He reports that he was concerned that his colostomy had prolapsed again today, and this caused him to feel short of breath, and have some pressure in his chest. His symptoms do not feel similar to his heart attack in the past. He reports good output from his colostomy site. Denies any decreased output. Denies any recent travel or leg swelling. Given concern of this pain came in for assessment. ROS: A complete review of systems was performed and is otherwise negative except as noted in HPI PMH/PSH: Per HPI, EMR FH: Noncontributory SH: Denies etoh, tobacco, illicts Allergies: Per EMR Medications: Per EMR, listed below PE: Vital signs reviewed in nursing triage note, EMR flow sheets, and at patient's bedside. GEN: Disheveled-appearing male, uncomfortable HEAD: atraumatic EYES: PEERL, EOMI, no scleral icterus ENT: mmm, no rhinorrhea, uvula midline CVS/CHEST: reg rate, nl rhythm, audible s1/s2, no m/r/g PULM: CTA b/l no wheezes, crackles, or rhonchi GI: Moderately prolapsed bowel his colostomy site, there is no redness, no blood. Mild tenderness around this site as well. EXT: no LE edema, 2+ periph pulses in bilat radial and DP NEURO: CN 2-12 grossly intact SKIN: warm, dry, no rashes or ulcerations PSYCH: AAOx3 answers questions appropriately ED Course/Treatment/MDM: DDX: Includes but not limited to bowel obstruction, incarcerated hernia, ACS, pneumonia Results: *See EMR for entirety. Notable results listed below - EKG: Sinus tachycardia rate 111, QRS 78, no ST depressions or elevations appreciated. Normal axis. - Labs/Images: Lactate within normal limits, CAT scan of the abdomen showing mild hernia around the peristomal area Treatment/Management/Therapy: - IV morphine, Dilaudid - IV fluids MDM - 67 -year-old male who presents with concern of abdominal pain, chest pain, shortness of breath. Hemodynamic initially stable. He does not appear in any respiratory distress at this time. He does have a large hernia around his ostomy site, there is concern for incarceration, bowel obstruction, intra-abdominal infection. Cardiac workup was completed revealing a nonischemic EKG, as well as a negative troponin. He had no further chest discomfort thereafter. His lung office was clear, there is no concern for COPD exacerbation. No obvious wheezes, no hypoxia. He was given IV analgesic therapy as above, was reassessed, his hernia site was reducible when he lied down, and when packs were applied. Nonetheless a CAT scan was obtained to evaluate for any surgical emergency. This showed a small hernia, though there is no evidence of incarceration at this time. Pain was adequately controlled. He was recently hospitalized for a cardiac workup, there was no indication for hospitalization this time to a cardiac workup, it is surmised that his chest pain is likely secondary to the pain around his ostomy site. He was having good stool output from the site. Plan was to have acute care surgery evaluate patient for expedited outpatient surgical intervention, though in the interim patient wished to leave the hospital. As there was no concern for any incarceration or acute surgical emergency patient was discharged home. He was given surgical follow-up for outpatient. He was comfortable with this plan. Was discharged without further incident. Discussed that if he had any returning symptoms or worsening of his pain to return immediately to the emergency department. Clinical Impression: *See section entitled Clinical Impression Dispo *See section entitled Disposition HISTORY OF PRESENTING ILLNESS MAXX is a 67 year old Male and was seen by me at 05-Apr-2018 16:34 for a chief complaint of shortness of breath . Triage Information: Most recent Vital Sign Value Date Respirations (breaths/min): 18 04-05-2018 16:24 SpO2 (%): 98 04-05-2018 16:24 PAST MEDICAL HISTORY ATTESTATION: I have reviewed and confirmed nurse's/medic's notes for patient's medications, allergies, medical history, and surgical history ALLERGIES/INTOLERANCES: Allergy Allergen: Altace Type: Drug Reaction: Facial Swelling Allergen: Crestor Type: Drug Reaction: Facial Swelling Allergen: hydrochlorothiazide Type: Drug Reaction: Facial Swelling Allergen: simvastatin Type: Drug Reaction: Facial Swelling Allergen: atorvastatin Type: Drug Reaction: Facial Swelling Allergen: moxifloxacin Type: Drug Reaction: Hives/Urticaria Allergen: Voltaren Type: Drug Reaction: Hives/Urticaria HEALTH HISTORY: No documented data. OUTPATIENT MEDICATIONS: Home Medications Review Status for Reconciliation: N/A Med Status: N/A No documented data. SIGNIFICANT EVENTS: Past Medical History Description:Pacemaker CLINICAL IMPRESSION Diagnosis/Annotation: ED Dx Name:Abdominal pain Code:R10.9 Name:Parastomal hernia Code:K43.5 Dispostion: discharged Type: home Condition on Disposition: stable ATTESTATION Attestation: I saw and evaluated the patient. I personally obtained the nelson and critical portions of the history and physical exam or was physically present for nelson and critical portions performed by the resident/fellow. I reviewed the resident/fellows documentation and discussed the patient with the resident/fellow. I agree with the resident/fellows medical decision making as documented in the residents note CRITICAL CARE TIME Is this a critically ill patient: no Electronic Signatures: Radhika Arriaga (Resident)) (Signed 06-Apr-2018 01:02) Authored: Provider Note - ED v2 Sergio Montero) (Signed 08-Apr-2018 09:20) Authored: Provider Note - ED v2 Co-Signer: Provider Note - ED v2 Last Updated: 08-Apr-2018 09:20 by Sergio Montero () References: 1. Data Referenced From Triage - ED 04/05/2018 4:24 PM 12 LEAD ELECTROCARDIOGRAM Observed: 04/02/2018 Status: F Source: [place] 3:23 PM [facility] REPOSITORY [facility] Cardiovascular Services [address] [place] [address] 12 Lead EKG 03/31/182032 MR#: [id number] Acct: [id number] Name: MAXX KNOTT Rep #: [id number] : 1950 67 From: Kassandra Lundberg MD Attending Dr: Status: DEP ER Ordering Dr: Verenice Shell MD Date: 03/31/18 Location: ED Sex: M C Admitted: Test Reason : CP Blood Pressure : / mmHG Vent. Rate : 066 BPM Atrial Rate : 066 BPM P-R Int : 222 ms QRS Dur : 106 ms QT Int : 400 ms P-R-T Axes : 051 028 021 degrees QTc Int : 419 ms Sinus rhythm with 1st degree A-V block Possible Left atrial enlargement Possible Inferior infarct , age undetermined Nonspecific T wave abnormality Abnormal ECG Confirmed by LAUREEN METCALF, KASSANDRA ([id number]), copy editor LAMAR AHN ([id number]) on 04/02/2018 3:22:42 PM Referred By: DANIEL Confirmed By:KASSANDRA LUNDBERG MD 04/02/18 1522 Date Kassandra Lundberg MD CC: [facility]; Verenice Shell MD Signed EMERGENCY DEPARTMENT Observed: 04/01/2018 Status: F Source: [place] SUMMARY 12:46 AM [facility] REPOSITORY [facility] Medical Records Department [address] [facility] [place] [address] Emergency Department Summary 03/31/18 2252 MR#: [id number] Acct: [id number] Name: MAXX KNOTT Rep #: [id number] : 1950 67 From: Verenice Shell MD PCP: [place] [place] Status: DEP ER - ER Visit Summary Date of Service: 03/31/18 Chief Complaint: Abdominal pain History of Present Illness: The patient is a 67 M who presents with a 1 hour history of abdominal pain. Patient states his stoma has been bulging into his colostomy bag for the past hour. Patient also tells me that he has had some chest pressure for the past hour. This is not mentioned to the triage nurse. He denies shortness of breath. He was sitting at rest the time of onset. He does have a history of triple bypass surgery along with cardiac stents, most recently being placed 1 year ago. He states his last stress test was 6 months ago. Patient has been to the ED multiple times with protrusion of his stoma. He tells me that he will hopefully have surgery next month. It is noted that over his last several visits he will he states that he would have surgery within the next month. Physical Examination: Vital signs are grossly unremarkable. Patient sitting upright in bed no acute distress. Head neck examination is unremarkable. Heart is regular rate and rhythm. Lung sounds are clear. Midline sternal scar is noted from prior CABG. Abdomen is soft. Stoma is protruding into the colostomy bag. No blood is noted with the stool. Test Results: EKG is sinus at 66. He has chronic lateral T wave changes noted. No acute ST change. Portable chest x-ray shows no focal consolidation with stable chronic changes. CBC and chemistry studies are normal. Troponin is less than 0.015. Emergency Department Course and Treatment: Patient received aspirin along with a small dose of Dilaudid and Zofran on arrival. Once a new cardiac workup was unremarkable patient was given an additional 0.5 mg of Dilaudid., Was then reduced and abdominal binder was placed. Patient is advised to follow-up with a surgeon. Treatment Plan: [] Disposition: Discharge Impression: 1. Prolapsed stoma, reduced 2. Atypical chest pain This note was generated with [employer] dictation software. It may contain incorrect words, spelling, and punctuation that were not noted in review of the chart prior to signing ED Disposition - Plan for ED Patient: Disposition: Home or Assisted Living Chief Complaint: Abd Pain Instructions: Colostomy: Answers to Common Questions, ED Chest Pain Atypical Unkn Cause Referrals: [facility] [Primary Care Provider] - Additional Instructions: Follow-up with your surgeon as scheduled. What to do if you have Problems For any increased pain, shortness of breath, bleeding, nausea or vomiting, chest pain, or any unexpected problems, contact your Primary Care Provider. Call [facility] ([phone]) or report to the closest Emergency Room. Call 911 if necessary. 04/01/18 0046 <Electronically signed by Verenice Shell MD> Date Verenice Shell MD Cosigner Signature (If Indicated): Date CC: [facility] DISCHARGE INSTRUCTION Observed: 03/31/2018 Status: F Source: [place] 10:54 PM [facility] REPOSITORY [facility] Medical Records Department [address] [place] [address] Discharge Instruction 03/31/18 2252 MR#: [id number] Acct: [id number] Name: MAXX KNOTT Rep #: [id number] : 1950 67 From: Verenice Shell MD PCP: [place] [place] Status: REG ER ED Disposition - Plan for ED Patient: Disposition: Home or Assisted Living Chief Complaint: Abd Pain Instructions: Colostomy: Answers to Common Questions, ED Chest Pain Atypical Unkn Cause Referrals: [facility] [Primary Care Provider] - Additional Instructions: Follow-up with your surgeon as scheduled. What to do if you have Problems For any increased pain, shortness of breath, bleeding, nausea or vomiting, chest pain, or any unexpected problems, contact your Primary Care Provider. Call [facility] ([phone]) or report to the closest Emergency Room. Call 911 if necessary. 03/31/18 2254 <Electronically signed by Verenice Shell MD> Date Verenice Shell MD Cosigner Signature (If Indicated): Date CC: [facility] CHEST 1 VIEW Observed: 03/31/2018 Status: F Source: [place] (PORTABLE) 9:37 PM [facility] REPOSITORY [facility] Imaging Services [address] [place] [id number] Chest 1 View (Portable) MR#: [id number] Acct: [id number] Name: MAXX KNOTT Rep #: [id number] : 1950 M 67 From: Verenice Dugan MD PCP: [place] [place] Status: DEP ER Study: Chest 1 View (Portable) Date of Exam: 03/31/18 Exam# [id number] Ordering Dr: Verenice Shell MD STUDY: X-RAY CHEST REASON FOR EXAM: Male, 67 years old. Chest pain TECHNIQUE: A single frontal view of the chest was obtained. COMPARISON: February 19, 2018 FINDINGS: The lungs are underaerated. There are no focal airspace opacities. There is no demonstrated pleural abnormality. There is mild enlargement of the cardiac silhouette. Sternotomy wires are present. A pacing device is again seen in the left chest. There are surgical clips in the mediastinum. Normal visualized pulmonary arteries. There is atherosclerotic calcification of the thoracic aorta. There are diffuse degenerative changes of the visualized spine. There are degenerative changes in both shoulders. There is stable focal eventration of the left diaphragm. RAD/Chest 1 View (Portable) IMPRESSION: No acute cardiopulmonary abnormalities. There is stable mild enlargement of the cardiac silhouette without pulmonary edema or pleural effusion. Electronically Signed: Verenice Dugan MD at 23:44 EST Tel Direct: [phone], Service support , CC: [facility]; Verenice Shell MD Prep Room Supervisor: Signed CBC W/DIFF, AUTOMATED Collected: 03/31/2018 Status: F Source: [place] 8:50 PM [facility] REPOSITORY TYPE CODE TESTS RESULT OUT OF RANGE REFERENCE UNITS LAB L100.1000 4.4-11.0 K/mm3 Normal WBC 6.9 LAB L100.1200 4.6-6.2 M/mm3 Low RBC 4.55 LAB L100.1300 13.0-16.5 g/dl Normal HGB 14.2 LAB L100.1400 40-54 % Normal HCT 42.1 LAB L100.1500 80-94 fL Normal MCV 92.5 LAB L100.1600 27.0-32.0 pg Normal MCH 31.2 LAB L100.1700 32-36 g/gl Normal MCHC 33.7 LAB L100.1810 11.6-14.6 % Normal RDW CV 14.1 LAB L100.1820 35.1-43.9 fl High RDW SD 48.2 LAB L100.1900 150-450 K/mm3 Normal PLT 276 LAB L100.2000 6.2-12.0 fl Normal MPV 10.2 LAB L100.2100 47-70 % Normal NEUT% 59.8 LAB L100.2200 19-41 % Normal LY% 25.3 LAB L100.2300 0-10 % Normal MONO% 9.2 LAB L100.2400 0-5 % High EO% 5.3 LAB L100.2500 0-1 % Normal BASO% 0.4 LAB L100.2550 0.0-0.9 % Normal IM GRAN % 0.000 Result Comment: IG% - Immature Granulocytes (promyelocytes, myelocytes and metamyelocytes) > 1% indicates that a LEFT SHIFT is Present. LAB L100.2620 2.0-7.7 X10 3/uL Normal Absolute Neut 4.1 LAB L100.2720 0.83-4.51 X10 3/ul Normal Absolute Lymph 1.75 Performed By: #### L100.0100 #### [facility] [address] [place], [address] BASIC METABOLIC Collected: 03/31/2018 Status: F Source: [place] PROFILE (BMP) 8:50 PM [facility] REPOSITORY TYPE CODE TESTS RESULT OUT OF RANGE REFERENCE UNITS LAB L501.0100 74-106 mg/dL Normal GLU 95 Result Comment: Please note revised GLUCOSE reference range effective 2017. LAB L501.1000 7-18 mg/dL Normal BUN 15 LAB L501.1100 0.70-1.30 mg/dL Normal CREAT,SERUM 1.01 Result Comment: The validity of the calculated GFR AND GFRAA in patients over 70 years has not been determined. Clinical correlation is essential. LAB L501.1110 >60 mL/min Normal EST GFR 78 Result Comment: Non- GFR Calc LAB L501.1115 >60 mL/min Normal EST GFR - AA 95 Result Comment: GFR Calc LAB L501.1255 ml/min Normal Estimated CRCL 69.60 LAB L501.1300 10-20 RATIO Normal BUN/CRE 14.9 LAB L501.2200 8.5-10 mg/dL Normal .1 CA 9.3 LAB L501.5300 136-14 mmol/L Normal 5 NA 141 LAB L501.5600 3.5-5. mmol/L Normal 1 K 4.1 Result Comment: Moderate Hemolysis, Result may be falsely increased. LAB L501.5900 98-107 mmol/L Normal CL 103 LAB L501.6100 21.0-32.0 mmol/L Normal CO2 29.0 LAB L501.6200 5-15 Normal 9 GAP Performed By: #### L500.2500, L501.4010 #### [facility] [address] [facility] [place], [address] TROPONIN-I Collected: 03/31/2018 Status: F Source: [place] 8:50 PM [facility] REPOSITORY TYPE CODE TESTS RESULT OUT OF RANGE REFERENCE UNITS LAB L501.4010 <0.045 ng/mL Normal < 0.015 TROPONIN-I Result Comment: TROPONIN-I EXPECTED VALUES <0.045 Negative 0.045 - 0.590 Consistent with Cardiac Damage > OR = 0.600 Critical Value Not every elevated troponin is indicative of PA. These values should be used with clinical judgement in examining the patient's clinical picture for diagnosis. To establish a diagnosis of PA versus myocardial injury, there must be a demonstrated rise and/or fall in the troponin values, in addition to ischemic symptoms, EKG changes, new regional wall motion abnormality, and/or angiographical evidence. PLEASE NOTE: REFERENCE RANGES EDITED 17 Performed By: #### L500.2500, L501.4010 #### [facility] [address] [place], [address] [facility] TROPONIN I Collected: 03/23/2018 Status: F Source: [facility] 11:25 PM [facility] SYSTEM REPOSITORY TYPE CODE TESTS RESULT OUT OF REFERENCE UNITS RANGE LAB ERTRP(LOINC 0.015-0.045 ng/ml ) [facility] Troponin I < 0.015 Performed By: #### ERTRP #### [facility] [address] [address] ED NOTE Observed: 03/23/2018 Status: COMPLETED Source: [place] 11:13 PM CLINIC OTHER CAMPUS REPOSITORY HNO ID: [id number] Author: Kiara Toth) MITCHELL Jose Service: Emergency Medicine Author Type: Registered Nurse Type: ED Notes Filed: 03/23/2018 11:14 PM Note Text: Report given to Annia GONZALEZ. ED PROV NOTE Observed: 03/23/2018 Status: COMPLETED Source: [place] 10:59 PM CLINIC OTHER CAMPUS REPOSITORY O ID: [id number] Author: Mine Proctor MD Service: Emergency Medicine Author Type: Physician Type: ED Provider Notes Filed: 03/28/2018 8:40 AM Note Text: Patient was signed out to me by Dr. Barry. Work up complete awaiting [facility] call back for observation admission. I was informed by [facility] that [facility] did not feel patient was appropriate for them. Spoke with Luciano who did not feel patient met criteria for full admission and thought should go to [facility]. PA spoke again with [facility] who still refused. Spoke with Luciano again. I agreed with him at this time do not feel that the patient needed admitted to the hospital. Also at this time patient was only 40 minutes from being due to now for his third troponin. Patient was admitted to the hospital 2 weeks ago for chest pain rule out. Also admitted to the hospital about one month ago for chest pain rule out with an unremarkable stress test at that time. Sign out from Dr. Barry was that she had low suspicion for acute ACS but given his history felt he should have his enzymes cycled and observed. However, now at this time he is due now for his third troponin and with the observation unit refusing to admit him my plan at this time will be to get the third troponin if that continues to be negative to discharge home. Patient tells me that he has had constant chest pain symptoms since an hour prior to arrival. That gives him now over 8 hours and at the time of the third troponin almost 9 hours of constant symptoms. Clinically the patient is well-appearing on my examination. He is sitting up watching TV eating and drinking. Heart is regular rate rhythm. Lungs sound clear. I discussed the plan with the patient and he was agreeable to this. Plan at this time is to get the third troponin and if this continues to be negative to discharge home. 3rd troponin is negative. Continues to look well on exam. Again clinically I have lower suspicion for acute ACS. Prior to discharge patient asking for pain medication for home. I was agreeable to giving him 6 tabs for home. Final Dx: 1. Chest Pain, unspecified 2. Abdominal Pain Plan: Patient will be discharged. I discussed that he needs to follow up with his doctor for re-evaluation of both the chest pain as well as abdominal pain. Patient discharged home in stable condition. Mine Proctor MD 03/28/18 0840 ED NOTE Observed: 03/23/2018 Status: COMPLETED Source: [place] 10:51 PM [facility] REPOSITORY HNO ID: [id number] Author: Kiara KingRn) Damon RN Service: Emergency Medicine Author Type: Registered Nurse Type: ED Notes Filed: 03/23/2018 10:51 PM Note Text: Dr Proctor at bedside. ED NOTE Observed: 03/23/2018 Status: COMPLETED Source: [place] 8:37 PM [facility] OTHER [place] REPOSITORY HNO ID: [id number] Author: Kiara Toth) MITCHELL Jose Service: Emergency Medicine Author Type: Registered Nurse Type: ED Notes Filed: 03/23/2018 8:37 PM Note Text: Boxed lunch given to pt. [facility] TROPONIN I Collected: 03/23/2018 Status: F Source: [facility] 8:33 PM HEALTH SYSTEM REPOSITORY TYPE CODE TESTS RESULT OUT OF REFERENCE UNITS RANGE LAB ERTRP(LOINC 0.015-0.045 ng/ml ) [facility] Troponin I < 0.015 Performed By: #### ERTRP #### [place] [address] CONSULT Observed: 03/23/2018 Status: COMPLETED Source: [place] 7:18 PM [facility] REPOSITORY HNO ID: [id number] Author: Sada Kincaid Service: General Surgery Author Type: Resident Type: Consults Filed: 03/23/2018 7:29 PM Note Text: Attestation signed by Christian Wagoner at 03/24/2018 2:37 PM More so than his nonobstructing hernia, I think he should be evaluated for colostomy reversal, but to do this he needs to go through the steps of evaluation, as well as attempting to quit smoking, and he would need cardiac risk stratification, though it is unclear to mewhy he has been deemed too high risk for surgery in the past. First I would perform a colonoscopy and barium enema to evaluate his anatomy, and then discuss his options The patient was seen and examined and I agree with the above residents note which I have changed as necessary. Christian Wagoner MD 2:36 PM 03/24/18 CONSULT: EMERGENCY GENERAL SURGERY SERVICE Emergency General Surgery Service Pager: For questions or concerns Mon-Fri 6a-5p please page [phone]. After 5pm and on Weekends and Holidays, please page [phone] if in ICU or [phone] if on RNF. SERVICE DATE: 03/23/2018 SERVICE TIME: 7:18 PM REASON FOR CONSULT: parastomal hernia REQUESTING PHYSICIAN: Dr Barry PRIMARY CARE PHYSICIAN: Bijan Perez MD Subjective Mr. Knott is a 67 year old male with recurrent parastomal hernia, s/p diverting loop colostomy for recurrent sigmoid diverticulitis. He is also complaining of CP and SOB. He reports he hit his abdomen on a the table and noticed a bulge at his hernia. He has been having normal BMs. He did have 1 episodes of emesis approx 1 hour before arrival to the ED. No fevers or chills. He has been evaluated by our service numerous times for the complaint of this hernia and was told to follow up with [facility] at [facility] as scheduled which he has not done. He was deemed not a surgical candidate here due to his extensive cardiac history as below. 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 - Peritonitis (HCC) PAST SURGICAL HISTORY Procedure Laterality Date - APPENDECTOMY HX - COLOSTOMY 07/2016 Diverting Loop Colostomy of the Transverse Colon - HEART SURGERY HX triple bypass 10 yrs ago - PPM IMPLANT - STENT - CORONARY FAMILY HISTORY Problem Relation Age of Onset - Coronary Artery Disease Father - Hyperlipidemia Father Social History Substance Use Topics - Smoking status: Current Every Day Smoker Packs/day: 0.50 Years: 35.00 Types: Pipe, Cigarettes - Smokeless tobacco: Never Used Comment: Quit cigarettes 11-16-16 now smoking 4 pipes as of 04-18-17 - Alcohol use No (Not in a hospital admission) Current hospital medications: iv contrast (radiology procedure) INTRAVENOUS DIRECTED PRN Allergies As of Date: 03/23/2018 Allergen Noted Reaction ALTASEPTIC 12/17/2016 Unknown BRILINTA [TICAGRELOR] 08/09/2017 Unknown CRESTOR [ROSUVASTATIN CALCIUM] 12/17/2016 Myalgia HCTZ [AMILORIDE-HYDROCHLOROTHIAZI*12/17/2016 Swelling MOXIFLOXACIN Swelling OTHER OMEGA-3S 07/06/2017 Unknown RAMIPRIL 12/17/2016 Swelling ROSUVASTATIN 02/19/2018 Other: See Comments SIMVASTATIN 12/17/2016 Myalgia and Other: See Comments VOLTAREN [DICLOFENAC SODIUM] 12/17/2016 Unknown Fully Assessed 03/23/2018 COMPLETE REVIEW OF SYSTEMS: See HPI Objective PHYSICAL EXAM: Physical Exam Performed: GENERAL: Alert, no distress, cooperative LUNGS: no resp distress SKIN: Skin color, texture, turgor normal. No rashes or lesions. ABDOMEN: Soft, nontender, parastoma hernia partially reducible, stool and flatus present in bag NEURO: Grossly normal cognition, motor function, and cranial nerves III-XII BP 158/65 Pulse 61 Temp (Src) 98.2 (Oral) Resp 20 Ht 5' 8 (1.73m) Wt 195 lb (88.5kg) SpO2 94% BMI 29.66 kg/(m2). DATA: Diagnostic tests reviewed for today's visit: Most recent labs and imaging results. CTA CHEST (GATED) WO/W IVCON Final Result CTA ABD/PEL W IVCON Final Result Impression/Recommendations 67 year old male with recurrent parastomal hernia - CT reveals stable colostomy with parastomal hernia, nonobstructive - no acute surgical intervention or admission at this time - recommend medical evaluation at discretion of ED for chest pain - as with previous evaluation, pt is high-risk for surgery due to cardiac history will need cardiac risk stratification prior to possible surgery for reversal - he can follow up electively at [facility] as previously instructed Discussed above plan with attending, Dr Wagoner SIGNATURE: Sada Kincaid MD PATIENT NAME: Maxx Knott DATE: March 23, 2018 TIME: 7:18 PM PAGER: see below Emergency General Surgery Service Pager: For questions or concerns Mon-Sun 6a-5p please page [phone]. After 5pm and on Weekends and Holidays, please page [phone] if in ICU or [phone] if on RNF. URINALYSIS ROUTINE Collected: 03/23/2018 Status: F Source: [facility] 7:11 PM HEALTH SYSTEM REPOSITORY TYPE CODE TESTS RESULT OUT OF RANGE REFERENCE UNITS LAB COLOR(LOIN C) Urine Color YELLOW LAB APPUR(LOIN C) Urine Appearance CLEAR LAB GLUUR(LOIN Negative mg/dL C) Glucose Urine NEGATIVE LAB KETON(LOIN Negative mg/dL C) Ketone Urine NEGATIVE LAB HGBUR(LOIN Negative C) Hemoglobin,Urin NEGATIVE e LAB PROTU(LOIN Negative mg/dL C) Abnormal Protein Urine 100 LAB NITRI(LOIN Negative C) Nitrites Urine NEGATIVE LAB BILIU(LOIN Negative C) Bilirubin Urine NEGATIVE LAB SPG(LOINC) 1.005-1.030 Abnormal Specific 1.035 Morris, Ur LAB PHUR(LOINC 5.0-8.0 ) pH,Urine 6.5 LAB UROBI(LOIN 0.0-1.0 EU/dL C) Urobilinogen,Ur 0.2 LAB LEUKO(LOIN Negative C) Leukocytes NEGATIVE Esterase LAB RBCU1(LOIN 0.0-5.0 /hpf C) RBC,Urine 1.3 LAB WBCU1(LOIN 0.0-5.0 /hpf C) WBC, Urine 0.6 LAB EPIT1(LOIN 0.0-5.0 /hpf C) Ep Cells Urine 0.6 LAB BACT1(LOIN None C) Bacteria Urine NONE LAB HYCA1(LOIN 0.0-1.0 /lpf C) Hyaline Cast 0.8 Performed By: #### URIN2 #### [facility] [address] [address] ED NOTE Observed: 03/23/2018 Status: COMPLETED Source: [place] 6:45 PM CLINIC OTHER CAMPUS REPOSITORY HNO ID: [id number] Author: Kiara (Rn) MITCHELL Jose Service: Emergency Medicine Author Type: Registered Nurse Type: ED Notes Filed: 03/23/2018 6:45 PM Note Text: Patient returned to the Emergency Department. CTA CHEST (GATED) Observed: 03/23/2018 Status: F Source: [facility] WO/W IV CON 6:39 PM HEALTH SYSTEM REPOSITORY Performed at [facility] APPROVED BY: Lenin Blakely MD EXAM TITLE: CT ANGIOGRAPHY OF THE CHEST WITHOUT AND WITH INTRAVENOUS CONTRAST AND 3-D REFORMATTED IMAGES; CT ANGIOGRAPHY OF THE ABDOMEN AND PELVIS WITH INTRAVENOUS CONTRAST AND 3-D REFORMATTED IMAGES DATE: 03/23/2018 COMPARISON: Aortic dissection protocol dated 03/08/2018 CLINICAL INDICATION/HISTORY: Patient present with chest pain and back pain. Suspected aortic dissection. TECHNIQUE: Axial noncontrast CT images of the chest. Following the administration of intravenous contrast axial images were obtained from the thoracic outlet through the region of the upper thigh. Mul tiplanar reformatted images were created. 3-D volumetric surface rendered images were created of both the thoracic aorta and the abdominal aorta on a separate workstation to aid in interpretation. Contrast: 150 mL Omnip[address] Dose-Length Product: 1257.5 mGy*cm CT Dose Reduction Employed: 1. Automated exposure control (AEC) was used. FINDINGS: Noncontrast images of the thoracic aorta demonstrate no evidence of mural hematoma. Aorta: The thoracic aorta is of normal caliber. It contains mild multifocal scattered atherosclerotic plaque. No evidence of aneurysm or dissection. The abdominal aorta demonstrates mild aneurysmal enlargement of its infrarenal component measuring 3.1 x 3.2 cm, similar. There is no evidence of abdominal aortic dissection. Mild to moderate multifocal atherosclerotic plaque. Mesenteric arteries: The celiac, superior mesenteric artery and inferior mesenteric artery appear patent with no hemodynamically significant stenosis seen at their proximal aspects. Renal arteries: Renal arteries appear patent without significant stenoses. Proximal iliac arteries: Normal in caliber with no significant abnormality seen. Chest: The central airways are patent. There are mild upper lung emphysematous changes. Unchanged 12 x 9 mm superior medial right upper lobe nodule (image 33, series 4). Stable 6 cm left lateral inferior subpleural nodule (image 125, series 4). No nicola consolidation. No pneumothorax or pleural effusion. There is enlargement of the right thyroid lobe. The heart size is normal. There is no pericardial effusion. Coronary arterial calcifications are noted. Status post median sternotomy. Visualized proximal pulmonary arterial tree is patent. No hilar or mediastinal lymphadenopathy. There is a relatively small left diaphragmatic hernia again noted. No acute abnormality involving the bony structures. ABDOMEN/PELVIS: No evidence of hepatic mass. Gallbladder appears normal. No ductal dilatation. No splenic mass. No focal pancreatic mass is noted. The right adrenal gland appears normal. There is similar adrenifo rm thickening of the left adrenal gland, most suggestive of hyperplasia. No evidence of hydronephrosis and hydroureter on either side. There are stable bilateral renal cysts. A right upper quadrant colostomy is again noted. There is a parastomal hernia again seen which contains mesenteric fat as well as a knuckle of small bowel. There is no nicola bowel wall thickening. No evidence of obstruction. There is moderate sigmoid diverticulosis without evidence of diverticulitis. There is no bulky lymphadenopathy. No free fluid. No free air. The urinary bladder appears grossly within normal limits. There is heterogeneous enlargement of the prostate gland. There is no suspicious lytic or blastic bony lesion. Advanced lower lumbar spondylosis. IMPRESSION: No acute process or significant interval change. No evidence of aortic dissection. Stable mild infrarenal abdominal aortic aneurysm measuring 3.1 x 3.2 cm. Stable 12 mm right upper lobe pulmonary nodule. Follow-up is again recommended with PET/CT or biopsy. Stable enlarged right thyroid lobe. Consider ultrasound for further assessment. Stable right upper quadrant colostomy with parastomal hernia containing a small bowel loop. No associated obstruction. Sigmoid diverticulosis without evidence of diverticulitis. Stable adreniform enlargement left adrenal gland suggestive of hyperplasia. Heterogeneously enlarged prostate gland again noted. Correlate with PSA levels. Additional chronic findings and details above. CTA ABD/PEL W IV CON Observed: 03/23/2018 Status: F Source: [facility] 6:39 PM HEALTH SYSTEM REPOSITORY Performed at [facility] APPROVED BY: Lenin Blakely MD EXAM TITLE: CT ANGIOGRAPHY OF THE CHEST WITHOUT AND WITH INTRAVENOUS CONTRAST AND 3-D REFORMATTED IMAGES; CT ANGIOGRAPHY OF THE ABDOMEN AND PELVIS WITH INTRAVENOUS CONTRAST AND 3-D REFORMATTED IMAGES DATE: 03/23/2018 COMPARISON: Aortic dissection protocol dated 03/08/2018 CLINICAL INDICATION/HISTORY: Patient present with chest pain and back pain. Suspected aortic dissection. TECHNIQUE: Axial noncontrast CT images of the chest. Following the administration of intravenous contrast axial images were obtained from the thoracic outlet through the region of the upper thigh. Mul tiplanar reformatted images were created. 3-D volumetric surface rendered images were created of both the thoracic aorta and the abdominal aorta on a separate workstation to aid in interpretation. Contrast: 150 mL Omnipaque [address] Dose-Length Product: 1257.5 mGy*cm CT Dose Reduction Employed: 1. Automated exposure control (AEC) was used. FINDINGS: Noncontrast images of the thoracic aorta demonstrate no evidence of mural hematoma. Aorta: The thoracic aorta is of normal caliber. It contains mild multifocal scattered atherosclerotic plaque. No evidence of aneurysm or dissection. The abdominal aorta demonstrates mild aneurysmal enlargement of its infrarenal component measuring 3.1 x 3.2 cm, similar. There is no evidence of abdominal aortic dissection. Mild to moderate multifocal atherosclerotic plaque. Mesenteric arteries: The celiac, superior mesenteric artery and inferior mesenteric artery appear patent with no hemodynamically significant stenosis seen at their proximal aspects. Renal arteries: Renal arteries appear patent without significant stenoses. Proximal iliac arteries: Normal in caliber with no significant abnormality seen. Chest: The central airways are patent. There are mild upper lung emphysematous changes. Unchanged 12 x 9 mm superior medial right upper lobe nodule (image 33, series 4). Stable 6 cm left lateral inferior subpleural nodule (image 125, series 4). No nicola consolidation. No pneumothorax or pleural effusion. There is enlargement of the right thyroid lobe. The heart size is normal. There is no pericardial effusion. Coronary arterial calcifications are noted. Status post median sternotomy. Visualized proximal pulmonary arterial tree is patent. No hilar or mediastinal lymphadenopathy. There is a relatively small left diaphragmatic hernia again noted. No acute abnormality involving the bony structures. ABDOMEN/PELVIS: No evidence of hepatic mass. Gallbladder appears normal. No ductal dilatation. No splenic mass. No focal pancreatic mass is noted. The right adrenal gland appears normal. There is similar adrenifo rm thickening of the left adrenal gland, most suggestive of hyperplasia. No evidence of hydronephrosis and hydroureter on either side. There are stable bilateral renal cysts. A right upper quadrant colostomy is again noted. There is a parastomal hernia again seen which contains mesenteric fat as well as a knuckle of small bowel. There is no nicola bowel wall thickening. No evidence of obstruction. There is moderate sigmoid diverticulosis without evidence of diverticulitis. There is no bulky lymphadenopathy. No free fluid. No free air. The urinary bladder appears grossly within normal limits. There is heterogeneous enlargement of the prostate gland. There is no suspicious lytic or blastic bony lesion. Advanced lower lumbar spondylosis. IMPRESSION: No acute process or significant interval change. No evidence of aortic dissection. Stable mild infrarenal abdominal aortic aneurysm measuring 3.1 x 3.2 cm. Stable 12 mm right upper lobe pulmonary nodule. Follow-up is again recommended with PET/CT or biopsy. Stable enlarged right thyroid lobe. Consider ultrasound for further assessment. Stable right upper quadrant colostomy with parastomal hernia containing a small bowel loop. No associated obstruction. Sigmoid diverticulosis without evidence of diverticulitis. Stable adreniform enlargement left adrenal gland suggestive of hyperplasia. Heterogeneously enlarged prostate gland again noted. Correlate with PSA levels. Additional chronic findings and details above. ED NOTE Observed: 03/23/2018 Status: COMPLETED Source: [place] 6:35 PM [facility] REPOSITORY HNO ID: [id number] Author: Kiara Toth) MITCHELL Jose Service: Emergency Medicine Author Type: Registered Nurse Type: ED Notes Filed: 03/23/2018 6:35 PM Note Text: Patient transported to Ct and XR with transporter. ED NOTE Observed: 03/23/2018 Status: COMPLETED Source: [place] 6:24 PM [facility] REPOSITORY HNO ID: [id number] Author: Kiara Toth) MITCHELL Jose Service: Emergency Medicine Author Type: Registered Nurse Type: ED Notes Filed: 03/23/2018 6:24 PM Note Text: Surgery resident at bedside. [facility] TROPONIN I Collected: 03/23/2018 Status: F Source: [facility] 5:38 PM HEALTH SYSTEM REPOSITORY TYPE CODE TESTS RESULT OUT OF REFERENCE UNITS RANGE LAB ERTRP(LOINC 0.015-0.045 ng/ml ) ECU Troponin I < 0.015 Performed By: #### ERTRP #### [facility] [address] [place] [address] COMPREHENSIVE PANEL Collected: 03/23/2018 Status: F Source: [facility] 5:38 PM HEALTH SYSTEM REPOSITORY TYPE CODE TESTS RESULT OUT OF REFERENCE UNITS RANGE LAB NA(LOINC) 136-145 mEq/L Sodium Blood 140 LAB K(LOINC) 3.5-5.1 mEq/L Potassium Blood 3.6 LAB CL(LOINC) 98-107 mEq/L Chloride Blood 106 LAB CO2(LOINC) 21-32 mEq/L CO2 Blood 27 LAB GLU(LOINC) 70-99 mg/dL Glucose High Blood 118 LAB BUN(LOINC) 7-18 mg/dL BUN Blood 15 LAB CREA(LOINC 0.67-1.17 mg/dL ) Creatinine Blood 0.85 LAB CA(LOINC) 8.5-10.1 mg/dL Calcium Blood 8.7 LAB ALB(LOINC) 3.4-5.0 g/dL Albumin Blood 3.5 LAB TP(LOINC) 6.4-8.2 g/dL Total Protein 6.6 LAB AST(LOINC) 9-37 U/L AST-SGOT Blood 18 LAB ALT(LOINC) 12-78 U/L ALT-SGPT Blood 23 LAB ALKP(LOINC 46-116 U/L ) Alk Phosphatase 78 LAB BILIT(LOIN 0.2-1.0 mg/dL C) Total Bilirubin 0.2 LAB ANGAP(LOIN 8-16 C) Anion Gap 11 Performed By: #### P14 #### [place] [address] MDRD GFR Collected: 03/23/2018 Status: F Source: [facility] 5:38 PM HEALTH SYSTEM REPOSITORY TYPE CODE TESTS RESULT OUT OF RANGE REFERENCE UNITS LAB GFRFN(LOINC >60mL/min/1.73m ) 2 eGFR >60 Result Comment: If the patient is , multiply the result by 1.210. Performed By: #### GFR #### [place] [address] ED NOTE Observed: 03/23/2018 Status: COMPLETED Source: [place] 5:33 PM CLINIC OTHER CAMPUS REPOSITORY HNO ID: [id number] Author: Kiara KingRn) MITCHELL Jose Service: Emergency Medicine Author Type: Registered Nurse Type: ED Notes Filed: 03/23/2018 5:33 PM Note Text: Per shweta in lab. Green top hemolyzed. This RN to redraw. LACTIC ACID Collected: 03/23/2018 Status: F Source: [facility] 4:54 PM HEALTH SYSTEM REPOSITORY TYPE CODE TESTS RESULT OUT OF REFERENCE UNITS RANGE LAB EDLAC(LOINC 0.5-2.2 mEq/L ) Lactic Acid 1.6 Performed By: #### EDLAG #### [facility] [address] [place] [address] ED NOTE Observed: 03/23/2018 Status: COMPLETED Source: [place] 4:45 PM CLINIC OTHER CAMPUS REPOSITORY HNO ID: [id number] Author: Kiara (Rn) MITCHELL Jose Service: Emergency Medicine Author Type: Registered Nurse Type: ED Notes Filed: 03/23/2018 4:55 PM Note Text: Report given to Jace GONZALEZ for lunch coverage. ED PROV NOTE Observed: 03/23/2018 Status: COMPLETED Source: [place] 4:33 PM [facility] OTHER CAMPUS REPOSITORY HNO ID: [id number] Author: Poncho Barry MD Service: Emergency Medicine Author Type: Physician Type: ED Provider Notes Filed: 03/28/2018 12:21 AM Note Text: ED Provider Note Patient Name: Maxx Knott SERVICE DATE: 03/23/18 History Patient presents with: Chest Pain HPI Pt is a 67 y/o M with PMH CAD s/p CABG x 3, AAA, COPD, diverticulitis c/b colon perforation with loop colostomy placement 2017 presents to the ED with complaints of chest pain and abdominal pain. States that the chest pain started about 2 hours ago and is midsternal, constant, feels like a deep ache and is without radiation. Endorses some SOB but denies associated diaphoresis, numbness or tingling. Also complains of severe, constant abdominal pain of his ostomy site after accidentally bumping it into a sharp counter edge. He has had a few episodes of vomiting and some nausea since. Also endorses some difficulty voiding but this is not a new problem. Denies any recent illness, fever, chills, or cough. 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 - Peritonitis ([facility]) PAST SURGICAL HISTORY Procedure Laterality Date - APPENDECTOMY HX - COLOSTOMY 07/2016 Diverting Loop Colostomy of the Transverse Colon - HEART SURGERY HX triple bypass 10 yrs ago - PPM IMPLANT - STENT - CORONARY FAMILY HISTORY Problem Relation Age of Onset - Coronary Artery Disease Father - Hyperlipidemia Father Social History Social History Main Topics - Smoking status: Current Every Day Smoker Packs/day: 0.50 Years: 35.00 Types: Pipe, Cigarettes - Smokeless tobacco: Never Used Comment: Quit cigarettes 11-16-16 now smoking 4 pipes as of 04-18-17 - Alcohol use No - Drug use: No - Sexual activity: Not Currently ALLERGIES Allergen Reactions - Altaseptic Unknown - Brilinta [Ticagrelo* Unknown - Crestor [Rosuvastat* Myalgia - Hctz [Amiloride-Hyd* Swelling - Moxifloxacin Swelling - Other [place]-3s Unknown brelinta - Ramipril Swelling Other reaction(s): Angioedema Other reaction(s): Facial swelling - Rosuvastatin Other: See Comments - Simvastatin Myalgia, Other: See Comments Other reaction(s): Facial swelling - Voltaren [Diclofena* Unknown Review of Systems Constitutional: Negative for chills and fever. HENT: Negative for congestion and sore throat. Eyes: Negative for visual disturbance. Respiratory: Positive for shortness of breath. Negative for cough. Cardiovascular: Positive for chest pain. Negative for leg swelling. Gastrointestinal: Positive for abdominal pain, nausea and vomiting. Negative for blood in stool. Genitourinary: Negative for difficulty urinating, flank pain and hematuria. Musculoskeletal: Negative for arthralgias. Skin: Negative for color change. Neurological: Negative for dizziness, syncope, weakness, light-headedness, numbness and headaches. All other systems reviewed and are negative. Physical Exam BP 161/71 Pulse 80 Temp (Src) 98.2 (Oral) Resp 18 Ht 5' 8 (1.73m) Wt 195 lb (88.5kg) SpO2 98% BMI 29.66 kg/(m2). Physical Exam Constitutional: He is oriented to person, place, and time. He appears well-developed and well-nourished. No distress. HENT: Head: Normocephalic and atraumatic. Right Ear: External ear normal. Left Ear: External ear normal. Nose: Nose normal. Mouth/Throat: Oropharynx is clear and moist. Eyes: Pupils are equal, round, and reactive to light. Conjunctivae are normal. Neck: Normal range of motion. Neck supple. Cardiovascular: Normal rate, regular rhythm, normal heart sounds and intact distal pulses. Pulmonary/Chest: Effort normal and breath sounds normal. No respiratory distress. He has no wheezes. Abdominal: Bowel sounds are normal. He exhibits no distension. There is tenderness. There is no CVA tenderness. Abdomen diffusely tender to palpation. 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 Musculoskeletal: Normal range of motion. Neurological: He is alert and oriented to person, place, and time. Skin: Skin is warm and dry. Capillary refill takes less than 2 seconds. Psychiatric: He has a normal mood and affect. His behavior is normal. Judgment and thought content normal. Nursing note and vitals reviewed. Diagnostic Testing ED Labs Ordered and Reviewed - No data to display Procedures ED Course / Clinical Impression Vital signs were reviewed. Triage records and medical records were reviewed. Nursing notes were reviewed and incorporated. The attending who evaluated and managed this patient was Dr. Barry. Patient presents with complaints of abdominal pain and chest pain. On exam he has parastomal hernia and abdominal TTP. EKG without ischemic findings. Basic labs obtained and without acute findings. Troponin undetectable. Due to history of AAA, CTA per dissection protocol obtained and without evidence of acute aortic dissection. CT also shows stable colostomy with parastomal hernia that is nonobstructive. Gen surgery consulted and evaluated patient in the ED and do not feel pt needs acute surgical intervention at this time as he is to follow up with main campus [facility] for further management of ostomy. B-troponin drawn and sent here. Given patient's extensive cardiac history, will need cardiac enzymes cycling for ACS rule out. He is given ASA here in the ED. [facility] refused this patient in their unit. When they were paged for admission at 8 pm patient only had one negative troponin however due to delay in their call back 2nd troponin was resulted by then and also negative. [facility] physicians paged as well and spoke with Dr. Sheriff however due to recent negative stress test last month and recent admission for chest pain 2 weeks ago with cardiac consult and no ACS, they do not feel patient meets admission criteria and would like pt to be discharged from ED if 3rd Troponin negative. Patient asymptomatic at this time. Will continue to monitor and obtain 3rd troponin. Pt signed out to Dr. Proctor and Dr. Greco at 11:05 PM. Plan at this time is likely d/c if negative 3rd troponin and no additional symptoms or changes. Pt stable at time of disposition. Patient expressed understanding and is amendable to this course of action. Patient understood suspected diagnosis and instruction. No barriers of communication were apparent and I answered all questions. This note was generated using Apofore voice dictation. All resonable efforts were made to correct dictation errors but they still may occur given the nature of the software. ED Course as of Mar 23 2302 Poncho Mccain (Pa)'s Documentation Sat Mar 23, 2018 1748 CBC: No clinically significant leukocytosis, anemia, or thrombocytopenia 1836 CMP: No clinically significant electrolyte abnormalities, DANIEL, or metabolic alkalosis/acidosis, LFTs WNL 2109 [facility] states this patient not candidate for [facility] for chest pain due to multiple ED visits, long admissions and multiple visits for chest pain Others' Documentation Sat Mar 23, 2018 1719 Given prolapse of stoma with some bowel, ice pack applied, dilaudid given, and reduction was attempted unsuccessfully. Has had previous issues with prolapse. Surgery consulted. [BK] 1959 Attending Note I have personally performed a face to face assessment of the patient and have reviewed the PA/GUEST RELATIONS RECEPTIONIST note. 67 year old male presents with chief complaint of CP and abd pain. States began having CP today. Later ran into edge of table with side of abdomen and states his stoma herniated outward causing pain. H/o AAA. VS reviewed CVS: RRR Lungs: CTAB Abd: soft, ND, mild TTP to stoma. Stoma herniated with some bowel, healthy, pink, well perfused. Normal color stool in bag w/o blood. Extrem: NROM, no edema or TTP, NVI Presents with CP and abd pain. Herniated stoma with bowel, had ice pack placed and reduction attempted after dilaudid, but unsuccessful. EKG sinus w/o KERRI. Trop WNL. Review of records showed PET stress test on 02/07/18 stay af [facility] main with <10% defect, and EF 45%. H/o CAD. H/o stable AAA, but given CP and abd pain , dissection or worsening aneurysm considered. CTA obtained and no dissection or aneurysm. 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 Low risk wells, doubt PE, not pleuritic pain. Surgery consulted, and they know patient well, stated herniated stoma is at baseline, no intervention. Pt was supposed to f/u with surgeon at [facility] for colostomy reversal but has not. Pt was given ASA, CP free currently, and will be placed in [facility] for observation and serial enzymes. Signature: Poncho Barry MD Date: 03/23/2018 Time: 7:59 PM [BK] ED Course User Index [BK] Poncho Barry MD Clinical Impressions as of Mar 23 2302 Chest pain, unspecified type Abdominal pain, unspecified abdominal location MDM / Disposition / Plan DispositionThe patient was other (comment) (signed out to Dr. Proctor and Dr. Greco). Condition at disposition is stable. SIGNATURE: CORINNA Villagomez PA (Pa) 03/23/182306 Poncho Barry MD 03/28/18 002 EKG Observed: 03/23/2018 Status: F Source: [place] 3:51 PM CLINIC OTHER CAMPUS REPOSITORY NAME : MAXX KNOTT PID : [id number] : 1950 Gender : Male Race : ORD : Procedure Date : Mar 23 2018 15:51 Edit Date : Mar 23 2018 20:43 Diagnosis: POOR DATA QUALITY, INTERPRETATION MAY BE ADVERSELY AFFECTED NORMAL SINUS RHYTHM POSSIBLE INFERIOR INFARCT (CITED ON OR BEFORE 08-MAR-2018) T WAVE ABNORMALITY, CONSIDER ANTEROLATERAL ISCHEMIA ABNORMAL ECG WHEN COMPARED WITH ECG OF 08-MAR-2018 20:02, INCOMPLETE RIGHT BUNDLE BRANCH BLOCK IS NO LONGER PRESENT Confirmed by MD Anastasiia, Kajal ([id number]) on 03/23/2018 8:43:04 PM Ventricular Rate : 74 BPM Atrial Rate : 74 BPM P-R Interval : 180 ms QRS Duration : 108 ms Q-T Interval : 380 ms QTC Calculation(Bezet) : 421 ms P [place] : 59 degrees R [place] : 47 degrees T [place] : 28 degrees Test Reason : Location : 4 : AKED EL 1 Overread By : MD Laurent Carol Editted By : MD Laurent Carol Referred By : , Acquired by : Verenice Aguilar ED TRIAGE NOTE Observed: 03/23/2018 Status: COMPLETED Source: [place] 3:47 PM CLINIC OTHER [place] REPOSITORY HNO ID: [id number] Author: ALEM Lowe Pa-C Service: Emergency Medicine Author Type: Physician Tool Grinder Operator Surface Type: ED Triage Notes Filed: 03/23/2018 3:50 PM Note Text: ED INTAKE NOTE Patient Name: Maxx Knott Service Date: 03/23/18 BRIEF HPI: MR Knott, a 67 years old man with history of CAD s/p CABG, COPD, AAA, diverticulitis with stoma who presents to the ED for prolapsed ostomy and chest pain. Patient was recently seen here and discharged with the same. Reports this started this morning. Reports shortness of breath and wheezing. BRIEF EXAM: Constitutional: Well developed, well nourished, NAD HEENT: Normocephalic, atraumatic Respiratory: CTA bilaterally, no respiratory distress Cardiac: RRR, heart sounds normal Abdomen: ostomy with obvious prolapse Neuro: AANDOx3 Skin: Warm and dry INTAKE WORKUP: CXR, CMP, BMP, trop I SIGNATURE: Vida Mccoy PA-C ED NOTE Observed: 03/23/2018 Status: COMPLETED Source: [place] 3:45 PM CLINIC OTHER CAMPUS REPOSITORY HNO ID: [id number] Author: Maranda (Rn) MITCHELL White Service: Emergency Medicine Author Type: Registered Nurse Type: ED Notes Filed: 03/23/2018 3:46 PM Note Text: Pt complaining of chest and abdominal pain that started about one hour ago; (+) SOB; (+) nausea and vomiting; Pt has a large stoma to right side of abdomen that pt got about one and half years ago; Pt stated bumped site on table and not stoma is larger than normal; HEMOGRAM/DIFF Collected: 03/23/2018 Status: F Source: [facility] 2:44 PM HEALTH SYSTEM REPOSITORY TYPE CODE TESTS RESULT OUT OF REFERENCE UNITS RANGE LAB WBC(LOINC) 4.23-9.07 thou/cmm WBC 8.05 LAB RBC(LOINC) 4.63-6.08 mil/cmm Low RBC 4.39 LAB HGB(LOINC) 13.7-17.5 g/dL Hgb 13.8 LAB HCT(LOINC) 40.1-51.0 % Hct 40.4 LAB MCV(LOINC) 83.2-95.6 fl MCV 92.0 LAB MCH(LOINC) 25.7-32.2 pg MCH 31.4 LAB MCHC(LOINC 32.3-36.5 % ) MCHC 34.2 LAB RDW(LOINC) 11.6-14.4 % RDW 13.8 LAB RDWSD(LOIN 36.1-45.8 fl C) RDW SD High 47.3 LAB PLT(LOINC) 141-365 thou/cmm Platelet 321 LAB MPV(LOINC) 8.7-12.0 fl MPV 9.9 LAB SEG(LOINC) % Seg Neutrophil 69.5 LAB IGRE(LOINC % ) Immature Grans 0.20 LAB LYMPH(LOIN % C) Lymphocyte 22.6 LAB MNO(LOINC) % Monocyte 6.1 LAB EOSIN(LOIN % C) Eosinophil 1.4 LAB BASO(LOINC % ) Basophil 0.2 LAB SEGN(LOINC 1.78-5.38 thou/cmm ) Abs. High Neut (ANC) 5.59 LAB IGAB(LOINC 0.00-0.05 thou/cmm ) Abs Immature Grans 0.02 LAB LYMN(LOINC 0.84-2.85 thou/cmm ) Abs. Lymph 1.82 LAB MONON(LOIN 0.30-0.82 thou/cmm C) Abs. [place] 0.49 LAB EOSN(LOINC 0.04-0.54 thou/cmm ) Abs. Eosin 0.11 LAB BASON(LOIN 0.01-0.08 thou/cmm C) Abs. Baso 0.02 Performed By: #### [id number] #### [facility] [address] [place], [place] [address] PROGRESS Observed: 03/12/2018 Status: COMPLETED Source: [place] 1:57 PM [facility] REPOSITORY HNO ID: [id number] Author: Britt KingRn) MITCHELL Prado Service: (none) Author Type: Registered Nurse Type: Progress Notes Filed: 03/12/2018 2:01 PM Note Text: TRANSITION CARE MANAGEMENT (TCM) INITIAL CONTACT TRANSITION CARE MANAGEMENT: Date of Outreach: 03/12/2018 Outreach Attempt 1: Contact Not Made Outreach Attempt 2: Contact Not Made Date of Discharge 03/10/2018 Some recent data might be hidden SUMMARY: -Pt discharged from [facility] on 03/10. -Follow up appointment on No appointments scheduled. Unable to reach patient to schedule f/u visit. -Medication review done : Called by Chel Craig pharmd x 2 and she was unable to reach the patient . -Admitted for: Chest pain Second outreach attempt .Patient called for care coordination after his hospital discharge. The patient was unavailable and his voice mail box is full Britt Prado RN.BSN [facility]/[employer] OTIS [[id number] PROGRESS Observed: 03/12/2018 Status: COMPLETED Source: [place] 12:21 PM [facility] REPOSITORY HNO ID: [id number] Author: Britt KingRn) MITCHELL Prado Service: (none) Author Type: Registered Nurse Type: Progress Notes Filed: 03/12/2018 12:22 PM Note Text: First outreach attempt . Patient called for care coordination after his hospital discharge. The patient was unavailable and his voice ramon box is full Britt Prado RN.BSN [place] [facility]/[employer] [place] [[id number] PROGRESS Observed: 03/12/2018 Status: COMPLETED Source: [place] 8:23 AM [facility] REPOSITORY HNO ID: [id number] Author: Chel Craig Pharmd Service: (none) Author Type: Pharmacist Type: Progress Notes Filed: 03/12/2018 12:27 PM Note Text: TRANSITION CARE MANAGEMENT (TCM) PHARMACY CONTACT Provider Action/FYI: Unable to reach patient after two or more unsuccessful outreach attempts. TCM medication reconciliation incomplete at this time. Patient unable to be reached after two or more unsuccessful outreach attempts. No further attempts to contact patient will be made. Attempt #1 - Contacted home number, Mailbox was full. Unable to leave message. Attempt #2 - Home number went straight to voicemail. SUMMARY: -Pt discharged from [facility] on 03/10/18. -Follow up appointment on - will defer to TCM Hub RN to schedule f/u appt. -Medication review not done. -Admitted for Chest Pain History of Present Illness: The following content has been copied and pasted from patient's discharge summary. HOSPITAL COURSE: MR Knott, a 67 years old man with history of CAD s/p CABG, COPD, AAA, presented with pressure like chest pain with some dyspnea. His EKG did not show any new ischemia. Troponin was negative. His CTA chest and abdomen was negative for pul embolism and dissection but showed stable AAA at 3.2 cm. He was evaluated by straightening machine operator. He had pharmacologic stress test on past January and July which were negative for ischemia. He was continued on ASA, statin, metoprolol and ranexa. Machine Veneer Repairer recommended to follow up with his straightening machine operator as outpatient. He was also noted to have possible gastritis and was started on protonix. He was also noted to have 12 mm RUL nodule which has been present at least 07/2017. 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 - Peritonitis ([facility]) Social History Substance Use Topics - Smoking status: Current Every Day Smoker Packs/day: 0.50 Years: 35.00 Types: Pipe, Cigarettes - Smokeless tobacco: Never Used Comment: Quit cigarettes 11-16-16 now smoking 4 pipes as of 12-20-17 - Alcohol use No Immunization History Administered Date(s) Administered Influenza Seasonal - High Dose - Age 65+ 02/05/2017 Pneumovax 02/05/2017 Last 3 Encounter BP Readings: Date: BP: 03/08/2018 139/62 02/07/2018 155/69 02/02/2018 110/51 eGFR (no units) Date Value 03/09/2018 >60 eGFR-All Other Races (.) Date Value 02/12/2018 57 eGFR- (no units) Date Value 02/12/2018 >60 Estimated Creatinine Clearance: 77.5 mL/min (based on SCr of 1.02 mg/dL). ALLERGIES Allergen Reactions - Altaseptic Unknown - Brilinta [Ticagrelo* Unknown - Crestor [Rosuvastat* Myalgia - Hctz [Amiloride-Hyd* Swelling - Moxifloxacin Swelling - Other [place]-3s Unknown brelinta - Ramipril Swelling Other reaction(s): Facial swelling - Simvastatin Myalgia Other reaction(s): Facial swelling - Voltaren [Diclofena* Unknown Preferred pharmacy: [facility] [address] [place], [place] [id number] - [address] [facility] [phone] [place] [address] [address] [facility] [address] e- [facility] [place] [address] - [address] [facility] [phone] [address] [facility] [address] Medication Reconciliation: Legend: Stopped, New, Changed, Added to list Medication List Medication Directions Comments Action/Plan albuterol HFA (PROVENTIL HFA, VENTOLIN HFA) 90 mcg/actuation inhaler Inhale 2 Puffs as instructed every 4 hours as needed for Wheezing/Shortness of Breath. aluminum-magnesium hydroxide-simethicone (MAALOX,MYLANTA,MAG- AL PLUS) 200-200-20 mg/5 mL suspension Take 30 mL by mouth every 6 hours as needed. Sent to [facility] amLODIPine (NORVASC) 10 mg tablet Take 10 mg by mouth once daily. aspirin, enteric coated (ASPIRIN, ENTERIC COATED) 81 mg EC tablet Take 81 mg by mouth once daily. COMPOUNDED PRESCRIPTION One Piece Ostomy Pouch Item Type: Coloplast Sensura One Piece Non-Sterile with Window 07/05-4 1/2'' ?5/Box ICD 10: Prolapsed Stoma K94.09 COMPOUNDED PRESCRIPTION Paste: Convatec Stomahesive 1 tube ICD 10: Prolapsed Stoma K 94.09 cyclobenzaprine (FLEXERIL) 10 mg tablet Take 1 tablet by mouth at bedtime as needed for Muscle Spasm. fluticasone (FLONASE) 50 mcg/actuation nasal spray Use 1 [place] in the nose once daily as needed. furosemide (LASIX) 20 mg tablet Take 40 mg by mouth once daily as needed. gabapentin (NEURONTIN) 300 mg capsule Take 2 capsules by mouth daily at bedtime for 90 days. loratadine 10 mg cap Take 1 capsule every day by oral route as needed losartan (COZAAR) 100 mg tablet Take 100 mg by mouth once daily. metoprolol succinate ER (TOPROL XL) 100 mg Tb24 Take 1 tablet by mouth once daily. MULTIVIT WITH IRON,MINERALS (MULTIVITAMIN AND MINERALS ORAL) Take 1 capsule by mouth once daily. nitroglycerin sublingual (NITROSTAT) 0.[address] ONE(1) TABLET UNDER TONGUE NEEDED FOR CHEST PAIN. IF NO PAIN RELIEF CALL 911 ondansetron (ZOFRAN) 4 mg tablet Take 4 mg by mouth every 6 hours as needed. oxyCODONE-acetaminophen (PERCOCET) 10-325 mg tablet Take 1 tablet by mouth every 6 hours as needed for up to 3 days. Print Rx given pantoprazole DR (PROTONIX) 40 mg tablet Take 1 tablet by mouth DAILY (6 AM). Sent to [facility] pravastatin (PRAVACHOL) 40 mg tablet Take 40 mg by mouth daily at bedtime. LIPIDSFAULX Latest Ref Rng AND Units 02/08/2018 CHOLESTEROL, TOTAL <200 mg/dL 170 TRIGLYCERIDE <150 mg/dL 202 (H) HDL >39 mg/dL 29 (L) LDL <100 mg/dL 101 (H) VLDL <30 mg/dL 40 (H) QUEtiapine (SEROQUEL) 200 mg tablet Take 2 tablets by mouth daily at bedtime. ranolazine ER (RANEXA) 500 mg 12 hr tablet Take 1 tablet by mouth twice daily. vitamin B complex (B COMPLEX ORAL) Take 1 tablet by mouth once daily. Additional follow up: ? PCP f/u (will defer to TCM Hub RN to schedule f/u appt) Time spent on patient: 45-60 minutes Chel Craig PharmD March 12, 2018 8:23 AM RUTH Observed: 03/12/2018 Status: COMPLETED Source: [place] 12:00 AM [facility] REPOSITORY Patient Outreach (PHRXRF) NIKOSMAXX Shekhar ([id number]) 1950 M Date Time Provider Department 03/12/18 CHEL CRAIG PHARMD During your visit today, we recorded the following information about you: Chel Craig PharmD 03/12/2018 12:27 PM Signed TRANSITION CARE MANAGEMENT (TCM) PHARMACY CONTACT Provider Action/FYI: Unable to reach patient after two or more unsuccessful outreach attempts. TCM medication reconciliation incomplete at this time. Patient unable to be reached after two or more unsuccessful outreach attempts. No further attempts to contact patient will be made. Attempt #1 - Contacted home number, Mailbox was full. Unable to leave message. Attempt #2 - Home number went straight to voicemail. SUMMARY: -Pt discharged from [facility] on 03/10/18. -Follow up appointment on - will defer to TCM Hub RN to schedule f/u appt. -Medication review not done. -Admitted for Chest Pain History of Present Illness: The following content has been copied and pasted from patient's discharge summary. HOSPITAL COURSE: MR Knott, a 67 years old man with history of CAD s/p CABG, COPD, AAA, presented with pressure like chest pain with some dyspnea. His EKG did not show any new ischemia. Troponin was negative. His CTA chest and abdomen was negative for pul embolism and dissection but showed stable AAA at 3.2 cm. He was evaluated by straightening machine operator. He had pharmacologic stress test on past January and July which were negative for ischemia. He was continued on ASA, statin, metoprolol and ranexa. Machine Veneer Repairer recommended to follow up with his straightening machine operator as outpatient. He was also noted to have possible gastritis and was started on protonix. He was also noted to have 12 mm RUL nodule which has been present at least 07/2017. 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 - Peritonitis ([facility]) Social History Substance Use Topics - Smoking status: Current Every Day Smoker Packs/day: 0.50 Years: 35.00 Types: Pipe, Cigarettes - Smokeless tobacco: Never Used Comment: Quit cigarettes 11-16-16 now smoking 4 pipes as of 04-18-17 - Alcohol use No Immunization History Administered Date(s) Administered Influenza Seasonal - High Dose - Age 65+ 02/05/2017 Pneumovax 02/05/2017 Last 3 Encounter BP Readings: Date: BP: 03/08/2018 139/62 02/07/2018 155/69 02/02/2018 110/51 eGFR (no units) Date Value 03/09/2018 >60 eGFR-All Other Races (.) Date Value 02/12/2018 57 eGFR- (no units) Date Value 02/12/2018 >60 Estimated Creatinine Clearance: 77.5 mL/min (based on SCr of 1.02 mg/dL). ALLERGIES Allergen Reactions - Altaseptic Unknown - Brilinta [Ticagrelo* Unknown - Crestor [Rosuvastat* Myalgia - Hctz [Amiloride-Hyd* Swelling - Moxifloxacin Swelling - Other [place]-3s Unknown brelinta - Ramipril Swelling Other reaction(s): Facial swelling - Simvastatin Myalgia Other reaction(s): Facial swelling - Voltaren [Diclofena* Unknown [facility] [address] [place] [phone] - [address] [facility] [phone] [facility] [address] [address] [address] [facility] [address] e- [facility] [place] [address] - [address] [facility] [phone] [address] [address] [facility] [address] Medication Reconciliation: Legend: Stopped, New, Changed, Added to list Medication List Medication Directions Comments Action/Plan albuterol HFA (PROVENTIL HFA, VENTOLIN HFA) 90 mcg/actuation inhaler Inhale 2 Puffs as instructed every 4 hours as needed for Wheezing/Shortness of Breath. aluminum-magnesium hydroxide-simethicone (MAALOX,MYLANTA,MAG- AL PLUS) 200-200-20 mg/5 mL suspension Take 30 mL by mouth every 6 hours as needed. Sent to [facility] amLODIPine (NORVASC) 10 mg tablet Take 10 mg by mouth once daily. aspirin, enteric coated (ASPIRIN, ENTERIC COATED) 81 mg EC tablet Take 81 mg by mouth once daily. COMPOUNDED PRESCRIPTION One Piece Ostomy Pouch Item Type: Coloplast Sensura One Piece Non-Sterile with Window 07/05-4 2'' ?5/Box ICD 10: Prolapsed Stoma K94.09 COMPOUNDED PRESCRIPTION Paste: Convatec Stomahesive 1 tube ICD 10: Prolapsed Stoma K 94.09 cyclobenzaprine (FLEXERIL) 10 mg tablet Take 1 tablet by mouth at bedtime as needed for Muscle Spasm. fluticasone (FLONASE) 50 mcg/actuation nasal spray Use 1 [place] in the nose once daily as needed. furosemide (LASIX) 20 mg tablet Take 40 mg by mouth once daily as needed. gabapentin (NEURONTIN) 300 mg capsule Take 2 capsules by mouth daily at bedtime for 90 days. loratadine 10 mg cap Take 1 capsule every day by oral route as needed losartan (COZAAR) 100 mg tablet Take 100 mg by mouth once daily. metoprolol succinate ER (TOPROL XL) 100 mg Tb24 Take 1 tablet by mouth once daily. MULTIVIT WITH IRON,MINERALS (MULTIVITAMIN AND MINERALS ORAL) Take 1 capsule by mouth once daily. nitroglycerin sublingual (NITROSTAT) 0.[address] ONE(1) TABLET UNDER TONGUE NEEDED FOR CHEST PAIN. IF NO PAIN RELIEF CALL 911 ondansetron (ZOFRAN) 4 mg tablet Take 4 mg by mouth every 6 hours as needed. oxyCODONE-acetaminophen (PERCOCET) 10-325 mg tablet Take 1 tablet by mouth every 6 hours as needed for up to 3 days. Print Rx given pantoprazole DR (PROTONIX) 40 mg tablet Take 1 tablet by mouth DAILY (6 AM). Sent to [facility] pravastatin (PRAVACHOL) 40 mg tablet Take 40 mg by mouth daily at bedtime. LIPIDSFAULX Latest Ref Rng AND Units 02/08/2018 CHOLESTEROL, TOTAL <200 mg/dL 170 TRIGLYCERIDE <150 mg/dL 202 (H) HDL >39 mg/dL 29 (L) LDL <100 mg/dL 101 (H) VLDL <30 mg/dL 40 (H) QUEtiapine (SEROQUEL) 200 mg tablet Take 2 tablets by mouth daily at bedtime. ranolazine ER (RANEXA) 500 mg 12 hr tablet Take 1 tablet by mouth twice daily. vitamin B complex (B COMPLEX ORAL) Take 1 tablet by mouth once daily. Additional follow up: ? PCP f/u (will defer to TCM Hub RN to schedule f/u appt) Time spent on patient: 45-60 minutes Chel Craig, PharmD March 12, 2018 8:23 AM Allergies As of Date: 03/12/2018 Noted Allergy Reaction ALTASEPTIC 12/17/2016 16 - Unknown BRILINTA (TICAGRELOR) 08/09/2017 16 - Unknown CRESTOR (ROSUVASTATIN CALCIUM) 12/17/2016 17 - Myalgia HCTZ (AMILORIDE-HYDROCHLOROTHIAZI*12/17/2016 7 - Swelling MOXIFLOXACIN 7 - Swelling OTHER OMEGA-3S 07/06/2017 16 - Unknown Comments: brelinta RAMIPRIL 12/17/2016 7 - Swelling Comments: Other reaction(s): Facial swelling SIMVASTATIN 12/17/2016 17 - Myalgia Comments: Other reaction(s): Facial swelling VOLTAREN (DICLOFENAC SODIUM) 12/17/2016 16 - Unknown Date Reviewed: 03/10/2018 Reviewed by: Stephanie (Rn) MITCHELL Barney - Fully Assessed Reason for Visit: Transition Of Care [4074] Cmt: Pharmacy - Hospital Discharge 03/10/18 Prescriptions as of 03/12/2018 Sig: OXYCODONE-ACETAMINOPHEN 10 MG* Take 1 tablet by mouth every * PANTOPRAZOLE 40 MG TABLET,DEL* Take 1 tablet by mouth DAILY * ALUMINUM-MAG HYDROXIDE-SIMETH* Take 30 mL by mouth every 6 h* RANOLAZINE ER 500 MG TABLET,E* Take 1 tablet by mouth twice * ONDANSETRON HCL 4 MG TABLET Take 4 mg by mouth every 6 ho* B COMPLEX ORAL Take 1 tablet by mouth once d* ASPIRIN 81 MG TABLET,DELAYED * Take 81 mg by mouth once dominik* CYCLOBENZAPRINE 10 MG TABLET Take 1 tablet by mouth at bed* AMLODIPINE 10 MG TABLET Take 10 mg by mouth once dominik* LORATADINE 10 MG CAPSULE Take 1 capsule every day by o* PRAVASTATIN 40 MG TABLET Take 40 mg by mouth daily at * GABAPENTIN 300 MG CAPSULE Take 2 capsules by mouth dominik* METOPROLOL SUCCINATE ER 100 M* Take 1 tablet by mouth once d* QUETIAPINE 200 MG TABLET Take 2 tablets by mouth daily* COMPOUNDED PRESCRIPTION One Piece Ostomy Pouch Item T* COMPOUNDED PRESCRIPTION Paste: Convatec Stomahesive * MULTIVITAMIN AND MINERALS ORAL Take 1 capsule by mouth once * ALBUTEROL SULFATE HFA 90 MCG/* Inhale 2 Puffs as instructed * FLUTICASONE 50 MCG/ACTUATION * Use 1 [place] in the nose once * NITROGLYCERIN 0.4 MG SUBLINGU* PLACE ONE(1) TABLET UNDER TON* LOSARTAN 100 MG TABLET Take 100 mg by mouth once roddy* FUROSEMIDE 20 MG TABLET Take 40 mg by mouth once dominik* Problem List As Of Date 03/12/2018 Noted Resolved 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 Chest pain [R07.9] INVALID FOR*12/02/2017 Priority: A More... Hypertensive crisis [I16.9] INVALID FOR* Priority: B More... Healthcare maintenance [Z00.00] INVALID FOR* Priority: M More... Malnutrition of mild degree (HCC) [E44.1] INVALID FOR* Priority: L More... CHF exacerbation (HCC) [I50.9] INVALID FOR*12/02/2017 Diverticulitis of sigmoid colon [K57.32] INVALID FOR* Class: Recurrent More... Chronic systolic congestive heart failure (HCC)*INVALID FOR* Priority: J More... CAD (coronary artery disease) [I25.10] INVALID FOR* Priority: K More... Hypertensive heart disease with congestive hear*INVALID FOR* Priority: K Hypocalcemia [E83.51] INVALID FOR*06/19/2017 Hypernatremia [E87.0] INVALID FOR*06/19/2017 Hypokalemia [E87.6] INVALID FOR*06/19/2017 Parastomal hernia without obstruction or gangre*INVALID FOR* Abdominal aortic aneurysm without rupture (HCC)*INVALID FOR* Renal cysts, acquired, bilateral [N28.1] INVALID FOR* Arthritis [M19.90] INVALID FOR* Anxiety disorder [F41.9] INVALID FOR* Essential hypertension [I10] INVALID FOR* More... Nicotine use disorder, F17.2 [F17.200] INVALID FOR* Melena [K92.1] INVALID FOR* Fall [W19.XXXA] INVALID FOR* Abdominal pain [R10.9] INVALID FOR* Peristomal hernia [K46.9] INVALID FOR* Prolapse of intestine [K63.4] INVALID FOR*12/02/2017 Chronic narcotic use [F11.90] INVALID FOR* Chest pain [R07.9] INVALID FOR*12/02/2017 Chest pain [R07.9] INVALID FOR*02/03/2018 Other chest pain [R07.89] INVALID FOR* Priority: A More... Coronary artery disease involving coronary bypa*INVALID FOR* Priority: B More... Colostomy care (HCC) [Z43.3] INVALID FOR* More... Pulmonary nodules [R91.8] INVALID FOR* More... Thyroid nodule [E04.1] INVALID FOR* More... AAA (abdominal aortic aneurysm) without rupture*INVALID FOR* More... Obstructive sleep apnea [G47.33] INVALID FOR* More... Hyperlipidemia [E78.5] INVALID FOR* More... Chest pain [R07.9] INVALID FOR* Priority: A Encounter Status:Closed by KIARA (PHARMACIST)CHEL on 03/12/18 CNPTOUTREACH Observed: 03/12/2018 Status: COMPLETED Source: [place] 12:00 AM [facility] REPOSITORY Patient Outreach (INTMMN) MAXX KNOTT ([id number]) 1950 M Date Time Provider Department 03/12/18 BRITT PRADO (RN) INTMMN During your visit today, we recorded the following information about you: Britt Prado RN, RN 03/12/2018 12:22 PM Signed First outreach attempt . Patient called for care coordination after his hospital discharge. The patient was unavailable and his voice ramon box is full Britt Prado RN.MAIA [facility] [[id number] Britt Prado RN, RN 03/12/2018 2:01 PM Signed TRANSITION CARE MANAGEMENT (TCM) INITIAL CONTACT TRANSITION CARE MANAGEMENT: Date of Outreach: 03/12/2018 Outreach Attempt 1: Contact Not Made Outreach Attempt 2: Contact Not Made Date of Discharge 03/10/2018 Some recent data might be hidden SUMMARY: -Pt discharged from [facility] on 03/10. -Follow up appointment on No appointments scheduled. Unable to reach patient to schedule f/u visit. -Medication review done : Called by Chel Craig pharmd x 2 and she was unable to reach the patient . -Admitted for: Chest pain Second outreach attempt .Patient called for care coordination after his hospital discharge. The patient was unavailable and his voice mail box is full Britt Prado RN.MAIA [facility] [[id number] Allergies As of Date: 03/12/2018 Noted Allergy Reaction ALTASEPTIC 12/17/2016 16 - Unknown BRILINTA (TICAGRELOR) 08/09/2017 16 - Unknown CRESTOR (ROSUVASTATIN CALCIUM) 12/17/2016 17 - Myalgia HCTZ (AMILORIDE-HYDROCHLOROTHIAZI*12/17/2016 7 - Swelling MOXIFLOXACIN 7 - Swelling OTHER OMEGA-3S 07/06/2017 16 - Unknown Comments: brelinta RAMIPRIL 12/17/2016 7 - Swelling Comments: Other reaction(s): Facial swelling SIMVASTATIN 12/17/2016 17 - Myalgia Comments: Other reaction(s): Facial swelling VOLTAREN (DICLOFENAC SODIUM) 12/17/2016 16 - Unknown Date Reviewed: 03/10/2018 Reviewed by: Stephanie (Rn) MITCHELL Barney - Fully Assessed Reason for Visit: Transition Of Care [4074] Cmt: Hospital D/C 03/10 for chest pain Prescriptions as of 03/12/2018 Sig: OXYCODONE-ACETAMINOPHEN 10 MG* Take 1 tablet by mouth every * PANTOPRAZOLE 40 MG TABLET,DEL* Take 1 tablet by mouth DAILY * ALUMINUM-MAG HYDROXIDE-SIMETH* Take 30 mL by mouth every 6 h* RANOLAZINE ER 500 MG TABLET,E* Take 1 tablet by mouth twice * ONDANSETRON HCL 4 MG TABLET Take 4 mg by mouth every 6 ho* B COMPLEX ORAL Take 1 tablet by mouth once d* ASPIRIN 81 MG TABLET,DELAYED * Take 81 mg by mouth once dominik* CYCLOBENZAPRINE 10 MG TABLET Take 1 tablet by mouth at bed* AMLODIPINE 10 MG TABLET Take 10 mg by mouth once dominik* LORATADINE 10 MG CAPSULE Take 1 capsule every day by o* PRAVASTATIN 40 MG TABLET Take 40 mg by mouth daily at * GABAPENTIN 300 MG CAPSULE Take 2 capsules by mouth dominik* METOPROLOL SUCCINATE ER 100 M* Take 1 tablet by mouth once d* QUETIAPINE 200 MG TABLET Take 2 tablets by mouth daily* COMPOUNDED PRESCRIPTION One Piece Ostomy Pouch Item T* COMPOUNDED PRESCRIPTION Paste: Convatec Stomahesive * MULTIVITAMIN AND MINERALS ORAL Take 1 capsule by mouth once * ALBUTEROL SULFATE HFA 90 MCG/* Inhale 2 Puffs as instructed * FLUTICASONE 50 MCG/ACTUATION * Use 1 [place] in the nose once * NITROGLYCERIN 0.4 MG SUBLINGU* PLACE ONE(1) TABLET UNDER TON* LOSARTAN 100 MG TABLET Take 100 mg by mouth once roddy* FUROSEMIDE 20 MG TABLET Take 40 mg by mouth once dominik* Problem List As Of Date 03/12/2018 Noted Resolved 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 Chest pain [R07.9] INVALID FOR*12/02/2017 Priority: A More... Hypertensive crisis [I16.9] INVALID FOR* Priority: B More... Healthcare maintenance [Z00.00] INVALID FOR* Priority: M More... Malnutrition of mild degree (HCC) [E44.1] INVALID FOR* Priority: L More... CHF exacerbation (HCC) [I50.9] INVALID FOR*12/02/2017 Diverticulitis of sigmoid colon [K57.32] INVALID FOR* Class: Recurrent More... Chronic systolic congestive heart failure (HCC)*INVALID FOR* Priority: J More... CAD (coronary artery disease) [I25.10] INVALID FOR* Priority: K More... Hypertensive heart disease with congestive hear*INVALID FOR* Priority: K Hypocalcemia [E83.51] INVALID FOR*06/19/2017 Hypernatremia [E87.0] INVALID FOR*06/19/2017 Hypokalemia [E87.6] INVALID FOR*06/19/2017 Parastomal hernia without obstruction or gangre*INVALID FOR* Abdominal aortic aneurysm without rupture (HCC)*INVALID FOR* Renal cysts, acquired, bilateral [N28.1] INVALID FOR* Arthritis [M19.90] INVALID FOR* Anxiety disorder [F41.9] INVALID FOR* Essential hypertension [I10] INVALID FOR* More... Nicotine use disorder, F17.2 [F17.200] INVALID FOR* Melena [K92.1] INVALID FOR* Fall [W19.XXXA] INVALID FOR* Abdominal pain [R10.9] INVALID FOR* Peristomal hernia [K46.9] INVALID FOR* Prolapse of intestine [K63.4] INVALID FOR*12/02/2017 Chronic narcotic use [F11.90] INVALID FOR* Chest pain [R07.9] INVALID FOR*12/02/2017 Chest pain [R07.9] INVALID FOR*02/03/2018 Other chest pain [R07.89] INVALID FOR* Priority: A More... Coronary artery disease involving coronary bypa*INVALID FOR* Priority: B More... Colostomy care (HCC) [Z43.3] INVALID FOR* More... Pulmonary nodules [R91.8] INVALID FOR* More... Thyroid nodule [E04.1] INVALID FOR* More... AAA (abdominal aortic aneurysm) without rupture*INVALID FOR* More... Obstructive sleep apnea [G47.33] INVALID FOR* More... Hyperlipidemia [E78.5] INVALID FOR* More... Chest pain [R07.9] INVALID FOR* Priority: A Encounter Status:Closed by BRITT PRADO on 03/12/18 CASE MANAGEM Observed: 03/10/2018 Status: COMPLETED Source: [place] 12:23 PM [facility] REPOSITORY HNO ID: [id number] Author: Mirtha Jackson (Sw) Service: Care Management Author Type: Health Club Attendant Type: Care Mgt Progress Note Filed: 03/10/2018 12:24 PM Note Text: CARE MANAGEMENT PROGRESS NOTE SERVICE DATE: 03/10/2018 SERVICE TIME: 12:23 PM LOS: 2 days d/c need: transportation Met with pt in room who reports lives with his brother, however, brother unable to provide ride home. Approved d/c cab voucher. [employer] called. Discuss with RN. SIGNATURE: CINDY Bell PATIENT NAME: Maxx Knott DATE: March 10, 2018 TIME: 12:23 PM PAGER/CONTACT #: PLAN OF CARE Observed: 03/10/2018 Status: COMPLETED Source: [place] 11:57 AM [facility] REPOSITORY HNO ID: [id number] Author: Karlos Cuellar ([employer]) Service: Pharmacy Author Type: Pharmacist Type: Plan of Care Filed: 03/10/2018 11:58 AM Note Text: DISCHARGE MEDICATION REVIEW BY PHARMACY Patient Name: Maxx Knott Account #: Data Unavailable Admission Date: 03/08/2018 Date of Contact: March 10, 2018 Time of Contact: 11:57 AM Medication list was reviewed by a Pharmacist for drug interactions or drug related problems:Yes Below is a summary of pharmacist recommendations discussed with LIP: No Recommendations at this time from Discharge Medication List. KARLOS CUELLAR, ENGINEERING LAB TECHNICIAN Pager: [phone], 03/10/2018 11:57 AM Medication List START taking these medications aluminum-magnesium hydroxide-simethicone 200-200-20 mg/5 mL suspension Commonly known as: MAALOX,MYLANTA,MAG-AL PLUS Take 30 mL by mouth every 6 hours as needed. pantoprazole DR 40 mg tablet Commonly known as: PROTONIX Take 1 tablet by mouth DAILY (6 AM). CONTINUE taking these medications albuterol HFA 90 mcg/actuation inhaler Commonly known as: PROVENTIL HFA, VENTOLIN HFA amLODIPine 10 mg tablet Commonly known as: NORVASC aspirin, enteric coated 81 mg EC tablet Commonly known as: ASPIRIN, ENTERIC COATED B COMPLEX ORAL COMPOUNDED PRESCRIPTION One Piece Ostomy Pouch Item Type: Coloplast Sensura One Piece Non-Sterile with Window 07/05-4 /'' ?5/Box ICD 10: Prolapsed Stoma K94.09 COMPOUNDED PRESCRIPTION Paste: Convatec Stomahesive 1 tube ICD 10: Prolapsed Stoma K 94.09 cyclobenzaprine 10 mg tablet Commonly known as: FLEXERIL Take 1 tablet by mouth at bedtime as needed for Muscle Spasm. fluticasone 50 mcg/actuation nasal spray Commonly known as: FLONASE furosemide 20 mg tablet Commonly known as: LASIX gabapentin 300 mg capsule Commonly known as: NEURONTIN Take 2 capsules by mouth daily at bedtime for 90 days. loratadine 10 mg Cap losartan 100 mg tablet Commonly known as: COZAAR metoprolol succinate ER 100 mg Tb24 Commonly known as: TOPROL XL Take 1 tablet by mouth once daily. MULTIVITAMIN AND MINERALS ORAL nitroglycerin sublingual 0.4 mg SL tablet Commonly known as: NITROSTAT PLACE ONE(1) TABLET UNDER TONGUE NEEDED FOR CHEST PAIN. IF NO PAIN RELIEF CALL 911 ondansetron 4 mg tablet Commonly known as: ZOFRAN oxyCODONE-acetaminophen 10-325 mg tablet Commonly known as: PERCOCET Take 1 tablet by mouth every 6 hours as needed for up to 3 days. pravastatin 40 mg tablet Commonly known as: PRAVACHOL QUEtiapine 200 mg tablet Commonly known as: SEROquel Take 2 tablets by mouth daily at bedtime. ranolazine ER 500 mg 12 hr tablet Commonly known as: RANEXA Take 1 tablet by mouth twice daily. Where to Get Your Medications These medications were sent to [facility] [address] [place] [phone] - [address] - [phone] [facility] [place] [facility] [address], [facility] [address] ? aluminum-magnesium hydroxide-simethicone 200-200-20 mg/5 mL suspension ? pantoprazole DR 40 mg tablet Information about where to get these medications is not yet available Ask your nurse or doctor about these medications ? oxyCODONE-acetaminophen 10-325 mg tablet CNDS Observed: 03/10/2018 Status: COMPLETED Source: [place] 11:19 AM [facility] REPOSIT[facility] O ID: [id number] Author: Jarocho Dougherty Service: Hospital Medicine Author Type: Physician Type: Discharge Summaries Filed: 03/10/2018 11:22 AM Note Text: DISCHARGE SUMMARY PATIENT NAME: Maxx Knott ADMISSION DATE: 03/08/2018 DISCHARGE DATE: 03/10/2018 ATTENDING PHYSICIAN: Jarocho Dougherty Code Status: Full Code Highest Readmission Risk Score: 41 The 30 day readmissions risk score is derived from an internally validated risk model which evaluates patient level characteristics, utilization history, medication orders and lab results up until the day of discharge. Patients with a score of 40 or above are considered highest risk for readmission. Specific patient level drivers will be listed at the bottom of the summary. REASON FOR HOSPITALIZATION: chest pain DIAGNOSIS: Principal Problem: Chest pain Active Problems: Coronary artery disease involving coronary bypass graft of [place] heart without angina pectoris Abdominal aortic aneurysm without rupture (HCC) Essential hypertension Pulmonary nodules Resolved Problems: * No resolved hospital problems. * OPERATIONS DURING HOSPITALIZATION: None PROCEDURES DURING HOSPITALIZATION: No procedures performed HOSPITAL COURSE: MR Knott, a 67 years old man with history of CAD s/p CABG, COPD, AAA, presented with pressure like chest pain with some dyspnea. His EKG did not show any new ischemia. Troponin was negative. His CTA chest and abdomen was negative for pul embolism and dissection but showed stable AAA at 3.2 cm. He was evaluated by straightening machine operator. He had pharmacologic stress test on past January and July which were negative for ischemia. He was continued on ASA, statin, metoprolol and ranexa. Machine Veneer Repairer recommended to follow up with his straightening machine operator as outpatient. He was also noted to have possible gastritis and was started on protonix. He was also noted to have 12 mm RUL nodule which has been present at least 07/2017. Transitions of Care Critical Issues: SPECIALIST FOLLOW-UP: straightening machine operator LABS AND PROCEDURES PENDING AT DISCHARGE: No pending results. CONSULTING TEAMS DURING HOSPITALIZATION: Cardiology: Dr Ratna Bhatt PATIENT CONDITION AT DISCHARGE: Stable DISCHARGE DISPOSITION: Home/Self Care Discharge Physical Exam: VITAL SIGNS: BP 167/67 Pulse 67 Temp 36.2 ?C (97.2 ?F) Resp 18 Ht 172.7 cm (5' 8) Wt 89.6 kg (197 lb 8.5 oz) SpO2 98% BMI 30.03 kg/m? GENERAL: Alert, no distress, cooperative, SKIN: Skin color, texture, turgor normal. No rashes or lesions. OROPHARYNX: Lips, mucosa, and tongue normal. Teeth and gums normal. Oropharynx normal. LUNGS: Lungs clear to auscultation, Air entry fair, Unlabored breathing. CARDIAC: Normal S1 and S2; no rubs, murmurs, or gallops ABDOMEN: Abdomen soft, mild tenderness over epigastrium, non- distended, BS normal. Ostomy bag present- yellow stool. EXTREMITIES: Normal, no deformities, edema, clubbing or skin discoloration. NEURO: Grossly normal cognition, motor function, and cranial nerves III-XII INFORMATION PROVIDED TO PATIENT: (To pull info documented from the DC Instruct Orderset Complete O/S First): DIET: Resume pre-hospital diet ACTIVITY: Resume pre-hospital activity WOUND/SURGICAL SITE CARE: None ALLERGIES Allergen Reactions - Altaseptic Unknown - Brilinta [Ticagrelo* Unknown - Crestor [Rosuvastat* Myalgia - Hctz [Amiloride-Hyd* Swelling - Moxifloxacin Swelling - Other [place]-3[place] Unknown brelinta - Ramipril Swelling Other reaction(s): Facial swelling - Simvastatin Myalgia Other reaction(s): Facial swelling - Voltaren [Diclofena* Unknown DISCHARGE MEDICATION: Current Discharge Medication List START taking these medications aluminum-magnesium hydroxide-simethicone (MAALOX,MYLANTA,MAG- AL PLUS) 30 mL Take 30 mL by mouth every 6 hours as needed. Qty: 200 mL Refills: [address] (PROTONIX) 40 mg Take 40 mg by mouth DAILY (6 AM). Qty: 30 tablet Refills: 0 CONTINUE these medications which have CHANGED oxyCODONE-acetaminophen (PERCOCET 10) 1 tablet Take 1 tablet by mouth every 6 hours as needed. Earliest Fill Date: 03/10/18 Qty: 8 tablet Refills: 0 Associated Diagnoses:Chest pain, unspecified type CONTINUE these medications which have NOT CHANGED ranolazine ER (RANEXA) 500 mg Take 500 mg by mouth twice daily. Qty: 60 tablet Refills: 0 ondansetron (ZOFRAN) 4 mg Take 4 mg by mouth every 6 hours as needed. vitamin B complex (B COMPLEX ORAL) 1 tablet Take 1 tablet by mouth once daily. aspirin, enteric coated (ASPIRIN, ENTERIC COATED) 81 mg Take 81 mg by mouth once daily. cyclobenzaprine (FLEXERIL) 10 mg Take 10 mg by mouth at bedtime as needed for Muscle Spasm. Associated Diagnoses:Chronic low back pain, unspecified back pain laterality, with sciatica presence unspecified amLODIPine (NORVASC) 10 mg Take 10 mg by mouth once daily. loratadine 10 mg cap Take 1 capsule every day by oral route as needed pravastatin (PRAVACHOL) 40 mg Take 40 mg by mouth daily at bedtime. gabapentin (NEURONTIN) 600 mg Take 600 mg by mouth daily at bedtime. Qty: 90 capsule Refills: 0 Associated Diagnoses:Chronic low back pain, unspecified back pain laterality, with sciatica presence unspecified metoprolol succinate ER (TOPROL XL) 100 mg Take 100 mg by mouth once daily. Qty: 90 tablet Refills: 4 QUEtiapine (SEROquel) 400 mg Take 400 mg by mouth daily at bedtime. Qty: 60 tablet Refills: 0 !! COMPOUNDED PRESCRIPTION One Piece Ostomy Pouch Item Type: Coloplast Sensura One Piece Non-Sterile with Window 3-4 1/2'' ?5/Box ICD 10: Prolapsed Stoma K94.09 Qty: 1 Box Refills: 0 !! COMPOUNDED PRESCRIPTION Paste: Convatec Stomahesive 1 tube ICD 10: Prolapsed Stoma K 94.09 Qty: 1 Tube Refills: 0 MULTIVIT WITH IRON,MINERALS (MULTIVITAMIN AND MINERALS ORAL) 1 capsule Take 1 capsule by mouth once daily. albuterol HFA (PROVENTIL HFA, VENTOLIN HFA) 2 Puffs Inhale 2 Puffs as instructed every 4 hours as needed for Wheezing/Shortness of Breath. fluticasone (FLONASE) 1 [place] Use 1 [place] in the nose once daily as needed. nitroglycerin sublingual (NITROSTAT) 0.[address] ONE(1) TABLET UNDER TONGUE NEEDED FOR CHEST PAIN. IF NO PAIN RELIEF CALL 911 Qty: 25 tablet Refills: 0 losartan (COZAAR) 100 mg Take 100 mg by mouth once daily. furosemide (LASIX) 40 mg Take 40 mg by mouth once daily as needed. !! - Potential duplicate medications found. Please discuss with provider. FUTURE APPOINTMENTS: Follow Up with PCP: Bijan Perez MD Follow Up with straightening machine operator The patient's risk for 30-day readmission is determined using the following contributing factors: Pt variables contributing to increased readmission risk: 21 Active Medication Orders 18 Most Recent BUN Result 12 Number of Previous ED Visits (6 mos.) 11 Number of Hospitalizations (12 mos.) 9.4 First Resulted Calcium During Admission 1 Previous ED Visit (6 mos.)? 1 Insurance - Medicare 1 Discharge Disposition - Home 1 Active Anticoagulant TIME OF CARE: Discharge Management: I personally spent less than 30 minutes involved in the discharge management of this patient. SIGNATURE: Jarocho Dougherty MD PAGER/CONTACT #: [phone] DATE: March 10, 2018 TIME: 11:19 AM CASE MANAGEM Observed: 03/10/2018 Status: COMPLETED Source: [place] 10:49 AM CLINIC OTHER CAMPUS REPOSITORY O ID: [id number] Author: Yane Toth) MITCHELL Munson Service: Care Management Author Type: Registered Nurse Type: Care Mgt Progress Note Filed: 03/10/2018 10:49 AM Note Text: CARE MANAGEMENT PROGRESS NOTE SERVICE DATE: 03/10/2018 SERVICE TIME: 10:49 AM LOS: 2 days Called Mirtha CLEMENT to assist with transportation home. SIGNATURE: Yane Munson RN PATIENT NAME: Maxx Knott DATE: March 10, 2018 TIME: 10:49 AM PAGER/CONTACT #: [phone] NURSING PROG Observed: 03/09/2018 Status: COMPLETED Source: [place] 8:46 PM [facility] REPOSITORY HNO ID: [id number] Author: Carine (Rn) MITCHELL Chaney Service: (none) Author Type: Registered Nurse Type: Nursing Progress Note Filed: 03/09/2018 8:47 PM Note Text: Spoke with Dr. Omer about patient requesting to take 200 mg of Seroquel instead of the prescribed [address] Omer informed nurse to cut the pill in half for tonight's dose and to inform the day team to have it changed tomorrow. PROGRESS Observed: 03/09/2018 Status: COMPLETED Source: [place] 3:37 PM [facility] REPOSITORY HNO ID: [id number] Author: Jarocho Dougherty Service: Hospital Medicine Author Type: Physician Type: Progress Notes Filed: 03/10/2018 11:22 AM Note Text: DEPARTMENT OF HOSPITAL MEDICINE PROGRESS NOTE SERVICE DATE: 03/09/2018 SERVICE TIME: 3:37 PM Hospital Medicine/Primary Attending: Jarocho Dougherty MD NIGHT AND WEEKEND COVERAGE: After 7pm please page [phone] CHIEF COMPLAINT: chest pain SUBJECTIVE: Reports he developed chest pain pressure like in anterior chest with no radiation with some dyspnea when woke up yesterday. No exacerbating or relieving factor. No fever or chills. No gerd like symptoms. OBJECTIVE: PHYSICAL EXAM: BP 132/54 Pulse 61 Temp (Src) 98.1 (Oral) Resp 18 Ht 5' 8 (1.73m) Wt 197 lb 8.5 oz (89.6kg) SpO2 99% BMI 30.04 kg/(m2). GENERAL: Alert, no distress, cooperative, SKIN: Skin color, texture, turgor normal. No rashes or lesions. OROPHARYNX: Lips, mucosa, and tongue normal. Teeth and gums normal. Oropharynx normal. LUNGS: Lungs clear to auscultation, Air entry fair, Unlabored breathing. CARDIAC: Normal S1 and S2; no rubs, murmurs, or gallops ABDOMEN: Abdomen soft, mild tenderness over epigastrium, non- distended, BS normal. Ostomy bag present- yellow stool. EXTREMITIES: Normal, no deformities, edema, clubbing or skin discoloration. NEURO: Grossly normal cognition, motor function, and cranial nerves III-XII MEDICATIONS: Current hospital medications: ranolazine ER 500 mg tab(s) (RANEXA) 500 mg ORAL BID gabapentin 600 mg cap(s) (NEURONTIN) 600 mg ORAL AT BEDTIME pravastatin 40 mg tab(s) (PRAVACHOL) 40 mg ORAL AT BEDTIME losartan 100 mg tab(s) (COZAAR) 100 mg ORAL DAILY QUEtiapine 400 mg tab(s) (SEROquel) 400 mg ORAL AT BEDTIME albuterol HFA 90 mcg/actuation 2 Puff (PROVENTIL HFA, VENTOLIN HFA) 2 Puff INHALATION q 4 H PRN metoprolol succinate ER 100 mg tab(s) (TOPROL XL) 100 mg ORAL DAILY amLODIPine 10 mg tab(s) (NORVASC) 10 mg ORAL DAILY furosemide 40 mg tab(s) (LASIX) 40 mg ORAL PRN aspirin, enteric coated 81 mg tab(s) 81 mg ORAL DAILY cyclobenzaprine 10 mg tab(s) (FLEXERIL) 10 mg ORAL HS PRN nitroglycerin sublingual 0.4 mg tab(s) (NITROQUICK) 0.4 mg SUBLINGUAL q 5 MIN PRN enoxaparin 40 mg injection (LOVENOX) 40 mg SUBCUTANEOUS DAILY 0.9% NaCl 3-5 mL 3-5 mL INTRAVENOUS q 12 H ondansetron 4 mg tab(s) (ZOFRAN) 4 mg ORAL q 6 H PRN ondansetron (PF) 4 mg injection (ZOFRAN) 4 mg INTRAVENOUS q 6 H PRN acetaminophen 650 mg tab(s) (TYLENOL) 650 mg ORAL q 6 H PRN oxyCODONE-acetaminophen 5-325 mg 1-2 tablet (PERCOCET) 1-2 tablet ORAL q 6 H PRN sodium chloride 0.65 % 2 [place] (AYR, OCEAN) 2 [place] EACH NOSTRIL PRN DATA: Diagnostic tests reviewed for today's visit: CBC, Coags, BMP, Mg, Phos Recent Labs 03/09/18 0415 03/08/18 1230 WBC 7.44 10.72* HB 12.4* 13.4* HCT 38.2* 39.6* PLT 262 311 INR -- 1.10 NA 143 137 K 3.4* 3.4* CHLOR 105 101 CO2 32 27 BUN 18 14 CREAT 1.02 0.81 GLUC 106* 105* CA 9.2 9.4 MG 2.2 -- Liver Function, Amylase, AND Lipase Recent Labs 03/08/18 1230 TPROT 7.9 ALB 3.9 ALT 34 AST 26 ALKPHOS 108 TBILI 0.4 LIPASE 44* LACT 1.2 Cardiac Enzymes Heme: No results for input(s): RETICP, ABSRETIC, LD, WINTER, FE, TIBC, TRANSFERSAT in the last 24 hours. No results found for: UALBCR Assessment/Plan Patient Active Hospital Problem List: Chest pain (03/08/2018) ASSESSMENT: 1. Chest pain: atypical. Troponin negative. ekg no new ischemic changes. CTA chest and abdomen negative for dissection or PE. Stress test a month ago negative for ischemia. Evaluated by straightening machine operator- no plan for LHC, recommended to follow up with his straightening machine operator as op. May have gastritis, and may be contributing to his pain. Lungs air entry fair only but no wheezing to copd flare up. On asa, bb, statin and ranexa Getting percocet q 6 2. Suspect gastritis 3. RUL pul nodule 12 mm: size stable since 08/15. D/w patient. He is aware. Recommend follow up with pcp/ follow up ct chest. 4. Hx CAD s/p cabg 5. Copd 6. AAA 3.2 x 3.1 cm PLAN: continue asa, bb, statin and ranexa Protonix. Prn maalox. Patient requests he stay overnight, does not feel safe going home. stays with older brother. Will monitor overnight and dc home tomorrow. Op follow up with pcp and cariologist VTE Prophylaxis: Lovenox 40mg Sub Q Daily Disposition: Home Plan of care discussed with: Patient and RN SIGNATURE: Jarocho Dougherty MD PATIENT NAME: Maxx Knott DATE: March 09, 2018 TIME: 3:37 PM PAGER/CONTACT #: [phone] PLAN OF CARE Observed: 03/09/2018 Status: COMPLETED Source: [place] 11:00 AM CLINIC OTHER CAMPUS REPOSITORY HNO ID: [id number] Author: Karlos Cuellar ([employer]) Service: Pharmacy Author Type: Pharmacist Type: Plan of Care Filed: 03/09/2018 11:25 AM Note Text: MEDICATION RECONCILIATION Patient Name:Eric Knott : 1950 Reconciliation: Yes All BIOFUELS MANAGER medications addressed by LIP Additional comments: Unable to verify where patient fills maintenance medications - contacted several different pharmacies - [facility], [facility], Dimitri Sweet Per [facility] - patient has had 47 different prescribers for pain medications in the past year. 02/12/2018 1 02/12/2018 Oxycodone-Acetaminophen 5-325 10 7 Pa Den [id number] Rit (0258) 0 10.71 [facility] [place] 12/16/2017 1 12/16/2017 Oxycodone-Acetaminophen 5-325 10 3 Im Yusuf [id number] Rit (0258) 0 25.00 [place] 12/15/2017 1 12/14/2017 Oxycodone-Acetaminophen 5-325 4 1 Vi Ivan [id number] Rit (0258) 0 30.00 [place] 12/06/2017 1 12/06/2017 Oxycodone-Acetaminophen 5-325 28 7 Sa Rafia [id number] Rit (0258) 0 30.00 [place] 12/02/2017 1 12/02/2017 Oxycodone-Acetaminophen 5-325 20 5 Br Orl [id number] Rit (0258) 0 30.00 [place] 11/27/2017 3 11/26/2017 Hydrocodone-Acetamin 5-325 MG 15 4 Yeimi Mck [id number] Rit (3421) 0 18.75 [place] 11/22/2017 1 11/22/2017 Hydrocodone-Acetamin 5-325 MG 8 2 Ge Raoul [id number] Rit (0258) 0 20.00 [place] 11/17/2017 1 11/17/2017 Hydrocodone-Acetamin 5-325 MG 10 2 Je Kli [id number] Rit (0102) 0 25.00 [place] 11/08/2017 3 11/08/2017 Oxycodone-Acetaminophen 5-325 15 5 Kh Luz Maria [id number] Rit (3421) 0 22.50 [place] 11/01/2017 1 11/01/2017 Hydrocodone-Acetamin 5-325 MG 10 3 Sa Lof [id number] Rit (0258) 0 16.67 [place] 10/23/2017 1 10/22/2017 Oxycodone-Acetaminophen 5-325 10 3 Ju Winter [id number] Rit (0258) 0 25.00 [place] 10/06/2017 1 10/06/2017 Hydrocodone-Acetamin 5-325 MG 10 2 Ro Cam [id number] Rit (0258) 0 25.00 [place] 09/20/2017 1 09/20/2017 Oxycodone Hcl 5 MG Tablet 12 3 Schwarz Hor Nathan (6999) 0 30.00 [place] 09/16/2017 1 09/16/2017 Hydrocodone-Acetamin 5-325 MG 4 1 Re Ishan [id number] Rose (7270) 0 20.00 [place] 08/17/2017 1 08/17/2017 Oxycodone Hcl 5 MG Tablet 9 3 Ta Amelie [id number] [facility] (4864) 0 22.50 [place] MEDICATION HISTORY Patient Name:.Maxx Knott : 1950 Source of history:Patient: Reliability of source: Patient states he gets all medications filled at [facility] in [place] but the only thing they have ever filled for him is oxycodone. Tried calling around to other pharmacies that showed up on his complete dispense report and he had no recent fills. Does not appear to be adherent to meds and Pharmacy records: [facility] [phone] [facility] [phone] [facility] [phone] [facility] [phone] Medication Nonadherence Identified: Only appears to be getting pain medications filled. The above information represents the best possible medication history: Yes Additional comments: Patient states he gets all medications filled at [facility] in [place] but the only thing they have ever filled for him is oxycodone. Tried calling around to other pharmacies that showed up on his complete dispense report and he had no recent fills. Does not appear to be adherent to meds. Patient confimed that he is taking all medications on list but could not verify recent fills with any pharmacies except for his oxycodone on 02/12 at [facility]. Allergies: ALLERGIES Allergen Reactions - Altaseptic Unknown - Brilinta [Ticagrelo* Unknown - Crestor [Rosuvastat* Myalgia - Hctz [Amiloride-Hyd* Swelling - Moxifloxacin Swelling - Other [place]-3s Unknown brelinta - Ramipril Swelling Other reaction(s): Facial swelling - Simvastatin Myalgia Other reaction(s): Facial swelling - Voltaren [Diclofena* Unknown Preferred Pharmacy: [facility] [phone] Current BIOFUELS MANAGER Medications: Prior to Admission medications as of 03/09/18 1100 Medication Sig Last Dose Taking oxyCODONE-acetaminophen (PERCOCET) 10-325 mg tablet Take 1 tablet by mouth every 6 hours as needed. Yes ranolazine ER (RANEXA) 500 mg 12 hr tablet Take 1 tablet by mouth twice daily. ondansetron (ZOFRAN) 4 mg tablet Take 4 mg by mouth every 6 hours as needed. vitamin B complex (B COMPLEX ORAL) Take 1 tablet by mouth once daily. aspirin, enteric coated (ASPIRIN, ENTERIC COATED) 81 mg EC tablet Take 81 mg by mouth once daily. cyclobenzaprine (FLEXERIL) 10 mg tablet Take 1 tablet by mouth at bedtime as needed for Muscle Spasm. amLODIPine (NORVASC) 10 mg tablet Take 10 mg by mouth once daily. loratadine 10 mg cap Take 1 capsule every day by oral route as needed pravastatin (PRAVACHOL) 40 mg tablet Take 40 mg by mouth daily at bedtime. gabapentin (NEURONTIN) 300 mg capsule Take 2 capsules by mouth daily at bedtime for 90 days. metoprolol succinate ER (TOPROL XL) 100 mg Tb24 Take 1 tablet by mouth once daily. QUEtiapine (SEROQUEL) 200 mg tablet Take 2 tablets by mouth daily at bedtime. COMPOUNDED PRESCRIPTION One Piece Ostomy Pouch Item Type: Coloplast Sensura One Piece Non-Sterile with Window 07/05-2'' ?5/Box ICD 10: Prolapsed Stoma K94.09 COMPOUNDED PRESCRIPTION Paste: Convatec Stomahesive 1 tube ICD 10: Prolapsed Stoma K 94.09 MULTIVIT WITH IRON,MINERALS (MULTIVITAMIN AND MINERALS ORAL) Take 1 capsule by mouth once daily. albuterol HFA (PROVENTIL HFA, VENTOLIN HFA) 90 mcg/actuation inhaler Inhale 2 Puffs as instructed every 4 hours as needed for Wheezing/Shortness of Breath. fluticasone (FLONASE) 50 mcg/actuation nasal spray Use 1 [place] in the nose once daily as needed. nitroglycerin sublingual (NITROSTAT) 0.[address] ONE(1) TABLET UNDER TONGUE NEEDED FOR CHEST PAIN. IF NO PAIN RELIEF CALL 911 losartan (COZAAR) 100 mg tablet Take 100 mg by mouth once daily. furosemide (LASIX) 20 mg tablet Take 40 mg by mouth once daily as needed. Jeff Bond (Construction Crew Member) March 09, 2018 11:01 AM KARLOS CUELLAR, ENGINEERING LAB TECHNICIAN Pager: [phone], CONSULT Observed: 03/09/2018 Status: COMPLETED Source: [place] 9:18 AM CLINIC OTHER [place] REPOSITORY HNO ID: [id number] Author: Ratna Bhatt Service: Cardiovascular Medicine Author Type: Physician Type: Consults Filed: 03/09/2018 9:37 AM Note Text: Card Consult Dictated Job [id number] 1. CAD-hx CABG, Stenting, multiple hospitalizations at numerous hospitals and many recent negative stress tests including PET scan neg for ischemia 02/14; Large amount of noncardiac chronic chest pain making management difficult. Current enz neg x 2; EKG NSR, nssttc, old IMI( no change) -noncardiac cause of chest pain; home and f/u with his usual straightening machine operator; would not cath at this time 2.Tobacco-still smokes 3.hx pacer Ratna Bhatt MD Pager [phone] NUTRITION Observed: 03/09/2018 Status: COMPLETED Source: [place] 8:43 AM CLINIC OTHER [place] REPOSITORY HNO ID: [id number] Author: Samantha Granda RD Service: Nutrition Therapy Author Type: Registered Dietitian Type: Nutrition Filed: 03/09/2018 1:17 PM Note Text: NUTRITION THERAPY INITIAL ASSESSMENT SERVICE DATE: 03/09/2018 SERVICE TIME: 8:44 AM RECOMMENDED MALNUTRITION DIAGNOSIS: NO MALNUTRITION IDENTIFIED NUTRITION CARE PLAN: Problem, Etiology and Signs/Symptoms: Altered GI function related to diverticulitis perforation as evidenced by colostomy, noted plans for revision in the future Intervention: Advance diet as tolerated to goal Heart Healthy Coordination of Care: Nursing Monitor and Evaluation: Goal: Meet >75% of estimated needs Monitor fluid/electrolyte balance Monitor labs, I/Os, vital signs, weight Discharge Nutrition Recommendations: Diet: Heart Healthy Chart reviewed for weight loss and poor po prior to admission Per HPI: 67 yo male with a pertinent history of CAD with CABG in 2005 and stents in the recent past whom presented with Chest pain. Patient stated it started at 10am and was a dull pressure sensation in the mid sternal region about 5/10 in nature and got better with nitroglycerine. States he also has abdominal pain associated with this which is resolving. [place] nauseous, was diaphoretic, and no radiation of the pain. Dyspnea with exertion initially which feels better now. ROS: no vomiting, no lower extremity edema, no headaches, no blurry vision, and no weakness. ? Other past medical history includes ostomy from diverticulitis perforation that required resection, COPD, and pacemaker for Bradycardia in the past. Smokes currently and has been for 45 years 1pk/day. Rest of the medical, surgical, social, and family history as written below. Cardiology consulted. General surgery consult for prolapse stoma, noted per documentation patient has no acute obstruction or stoma compromise at this time, no acute surgical intervention indicated ACTIVE PROBLEM LIST Hypertensive Crisis Healthcare Maintenance Malnutrition of Mild Degree (Hcc) Diverticulitis of Sigmoid Colon Chronic Systolic Congestive Heart Failure (Hcc) Cad (Coronary Artery Disease) Hypertensive Heart Disease With Congestive Heart Failure (Hcc) Parastomal Hernia Without Obstruction Or Gangrene Abdominal Aortic Aneurysm Without Rupture (Hcc) Renal Cysts, Acquired, Bilateral Arthritis Anxiety Disorder Essential Hypertension Nicotine use disorder, F17.2 Melena Fall Abdominal Pain Peristomal Hernia Chronic Narcotic Use Other Chest Pain Coronary Artery Disease Involving Coronary Bypass Graft of [place] Heart Without Angina Pectoris Colostomy Care (Hcc) Pulmonary Nodules Thyroid Nodule Aaa (Abdominal Aortic Aneurysm) Without Rupture ([facility]) Obstructive Sleep Apnea Hyperlipidemia Chest Pain PAST MEDICAL HISTORY Diagnosis Date - AAA (abdominal aortic aneurysm) without rupture ([facility]) 05/13/[address] a/p - CAD (coronary artery disease) 2005 CAD s/p CABG x3 ([id number], [id number], [id number]) (2006 at [facility]) - COPD (chronic obstructive pulmonary disease) ([facility]) - Current every day smoker PT SMOKES A PIPE - Diverticulitis Perforated Diverticulitis - Diverticulitis of sigmoid colon 05/15/2017 Added automatically from request for surgery [id number] - Hx of CABG - Pacemaker 02/16/2017 s/p PPM () 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 - Peritonitis ([facility]) PAST SURGICAL HISTORY Procedure Laterality Date - APPENDECTOMY HX - COLOSTOMY 07/2016 Diverting Loop Colostomy of the Transverse Colon - HEART SURGERY HX triple bypass 10 yrs ago - PPM IMPLANT - STENT - CORONARY Social History Marital status: Spouse name: Years of education: 12 Number of children: 3 Occupational History Occupation Employer [employer]* Retired Social History Main Topics Smoking status: Current Every Day Smoker Packs/day: 0.50 Years: 35.00 Types: Pipe, Cigarettes Smokeless tobacco: Never Used Comment: Quit cigarettes 11-16-16 now smoking 4 pipes as of 04-18-17 Alcohol use: No Drug use: No Sexual activity: Not Currently Current Diet Order DIET NPO Lines and Drains: Peripheral 03/08/18 1230 Right Arm 20 Gauge (Active) Nutritional Intake Prior to Admission: >75% estimated energy needs over the past 18 month(s), noted some decline in po since colostomy surgery but still eating 3 meals per day and still cleaning plate. GI symptoms: nausea and stoma protruding from colostomy site, +colostomy Nutrition Abdominal Exam: abdomen is soft and nondistended and bowel sounds are normal, per clinical documentation ANTHROPOMETRICS Height: 172.7 cm (5' 8) Admission Weight: 88.5 kg (195 lb) Current Weight: 89.6 kg (197 lb 8.5 oz) Body mass index is 30.03 kg/m?. class 1 obesity Weight has not changed significantly over the past year Last Wt 03/08/18 : 89.6 kg (197 lb 8.5 oz) 02/12/18 : 87.4 kg (192 lb 9.6 oz) 02/02/18 : 88.5 kg (195 lb) - 1 month 12/02/17 : 92.2 kg (203 lb 4.2 oz) 11/30/17 : 87.5 kg (193 lb) - 3 months 11/19/17 : 87.5 kg (193 lb) 11/18/17 : 86.2 kg (190 lb) 10/27/17 : 88.5 kg (195 lb) 10/09/17 : 88.5 kg (195 lb) 09/22/17 : 88 kg (194 lb) 09/20/17 : 88.1 kg (194 lb 3.2 oz) 09/14/17 : 88.5 kg (195 lb) 09/09/17 : 88.5 kg (195 lb) - 6 months 08/28/17 : 87.1 kg (192 lb) 08/16/17 : 86.4 kg (190 lb 8 oz) 08/09/17 : 90.3 kg (199 lb) 07/30/17 : 90.8 kg (200 lb 2.8 oz) 07/21/17 : 90.7 kg (200 lb) 07/14/17 : 90.7 kg (200 lb) 07/06/17 : 90.7 kg (200 lb) 03/21/17 : 90.4 kg (199 lb 3.2 oz), [facility] 03/03/17 : 90.7 kg (200 lb), stated weight [place] Body Weight: 70 kg Dosing Weight: 89.6 kg Resting Metabolic Rate: 1654 Estimated kilocalorie needs: 3727-1522 kilocalories determined by 15-20 kcal/kg Estimated protein needs: 108-143 grams determined by 1.2-1.6 g/kg Dosing weight Estimated fluid needs: 2100 milliliters based on 30 mL/kg ideal NUTRITION FOCUSED PHYSICAL EXAM: Subcutaneous Fat Loss Orbital No fat loss Triceps No fat loss Mid-axillary at the iliac crest Unable to determine at this time Muscle Loss Locations: Temporalis No muscle loss Pectoralis No muscle loss Deltoids No muscle loss Interosseous No muscle loss Latissimus dorsi, trapezius Unable to determine at this time Quadriceps No muscle loss Gastrocnemius No muscle loss Potential micronutrient deficiency revealed in: No deficiency identified Edema: No Ascites: No Assessment of Functional Status: Functional capacity is unrelated to nutrition status Temperature Max in 24 hours: Temp (24hrs), Av.7 ?C (98 ?F), Min:36.4 ?C (97.5 ?F), Max:36.8 ?C (98.2 ?F) BP 162/72 Pulse (!) 58 Temp 36.4 ?C (97.5 ?F) (Oral) Resp 18 Ht 172.7 cm (5' 8) Wt 89.6 kg (197 lb 8.5 oz) SpO2 97% BMI 30.03 kg/m? Recent Labs 03/09/18 0415 03/08/18 1230 GLUC 106* 105* BUN 18 14 CREAT 1.02 0.81 NA 143 137 K 3.4* 3.4* CHLOR 105 101 CO2 32 27 ALB -- 3.9 HB 12.4* 13.4* HCT 38.2* 39.6* WBC 7.44 10.72* MG 2.2 -- Potential Signs of Inflammation: leukocytosis, hyperglycemia, microbiologic cultures and chronic condition ALLERGIES Allergen Reactions - Altaseptic Unknown - Brilinta [Ticagrelo* Unknown - Crestor [Rosuvastat* Myalgia - Hctz [Amiloride-Hyd* Swelling - Moxifloxacin Swelling - Other [place]-3s Unknown brelinta - Ramipril Swelling Other reaction(s): Facial swelling - Simvastatin Myalgia Other reaction(s): Facial swelling - Voltaren [Diclofena* Unknown Current Facility-Administered Medications: potassium chloride ER 40 mEq tab(s) (K-DUR, KLOR-CON) 40 mEq ORAL ONCE iv contrast (radiology procedure) INTRAVENOUS DIRECTED PRN ranolazine ER 500 mg tab(s) (RANEXA) 500 mg ORAL BID gabapentin 600 mg cap(s) (NEURONTIN) 600 mg ORAL AT BEDTIME pravastatin 40 mg tab(s) (PRAVACHOL) 40 mg ORAL AT BEDTIME losartan 100 mg tab(s) (COZAAR) 100 mg ORAL DAILY QUEtiapine 400 mg tab(s) (SEROquel) 400 mg ORAL AT BEDTIME albuterol HFA 90 mcg/actuation 2 Puff (PROVENTIL HFA, VENTOLIN HFA) 2 Puff INHALATION q 4 H PRN metoprolol succinate ER 100 mg tab(s) (TOPROL XL) 100 mg ORAL DAILY amLODIPine 10 mg tab(s) (NORVASC) 10 mg ORAL DAILY furosemide 40 mg tab(s) (LASIX) 40 mg ORAL PRN aspirin, enteric coated 81 mg tab(s) 81 mg ORAL DAILY cyclobenzaprine 10 mg tab(s) (FLEXERIL) 10 mg ORAL HS PRN nitroglycerin sublingual 0.4 mg tab(s) (NITROQUICK) 0.4 mg SUBLINGUAL q 5 MIN PRN enoxaparin 40 mg injection (LOVENOX) 40 mg SUBCUTANEOUS DAILY 0.9% NaCl 3-5 mL 3-5 mL INTRAVENOUS q 12 H ondansetron 4 mg tab(s) (ZOFRAN) 4 mg ORAL q 6 H PRN Or ondansetron (PF) 4 mg injection (ZOFRAN) 4 mg INTRAVENOUS q 6 H PRN acetaminophen 650 mg tab(s) (TYLENOL) 650 mg ORAL q 6 H PRN oxyCODONE-acetaminophen 5-325 mg 1-2 tablet (PERCOCET) 1-2 tablet ORAL q 6 H PRN sodium chloride 0.65 % 2 [place] (AYR, OCEAN) 2 [place] EACH NOSTRIL PRN Date 03/08/18 07 - 03/09/18 0659 03/09/18 07 - 03/10/18 0659 Shift 5809-3717 5604-0780 5673-5951 24 Hour Total 9128-1334 4551-3273 2257-5189 24 Hour Total I N T A K E PO 360 360 PO 360 360 Shift Total 360 360 O U T P U T Urine 400 400 800 Void (ml) 400 400 800 Urine Not Saved. 1 x 1 x Ostomy 100 100 Colostomy 1 100 100 Shift Total 400 500 900 Weight (kg) 88.5 89.6 89.6 89.6 89.6 89.6 89.6 89.6 Vitamin and Mineral Labs in the past year:No results for input(s): CHROMIUM, COPPER, MANGANESE, SELENIUM, VITAMINA, VITB1, VITB2, VITB6, B12, METHYLMAL, VITD25, VITAMINE, VITAK, ZINC, TIBC, FE, WINTER in the last 8784 hours. MNT Billing Type: Initial Assess/15 min 4 units SIGNATURE: Samantha Granda RD, LD PATIENT NAME: Maxx Knott DATE: March 09, 2018 TIME: 8:43 AM PAGER: [phone] MDRD GFR Collected: 03/09/2018 Status: F Source: [facility] 4:15 AM HEALTH SYSTEM REPOSITORY TYPE CODE TESTS RESULT OUT OF RANGE REFERENCE UNITS LAB GFRFN(LOINC >60mL/min/1.73m ) 2 eGFR >60 Result Comment: If the patient is , multiply the result by 1.210. Performed By: #### GFR #### [place] [address] HEMOGRAM Collected: 03/09/2018 Status: F Source: [facility] 4:15 AM HEALTH SYSTEM REPOSITORY TYPE CODE TESTS RESULT OUT OF REFERENCE UNITS RANGE LAB WBC(LOINC) 4.23-9.07 thou/cmm WBC 7.44 LAB RBC(LOINC) 4.63-6.08 mil/cmm Low RBC 4.01 LAB HGB(LOINC) 13.7-17.5 g/dL Low Hgb 12.4 LAB HCT(LOINC) 40.1-51.0 % Low Hct 38.2 LAB MCV(LOINC) 83.2-95.6 fl MCV 95.3 LAB MCH(LOINC) 25.7-32.2 pg MCH 30.9 LAB MCHC(LOINC) 32.3-36.5 % MCHC 32.5 LAB RDW(LOINC) 11.6-14.4 % RDW 14.2 LAB RDWSD(LOINC 36.1-45.8 fl ) High RDW SD 49.8 LAB PLT(LOINC) 141-365 thou/cmm Platelet 262 LAB MPV(LOINC) 8.7-12.0 fl MPV 10.4 Performed By: #### CBC1 #### [place] [id number] BASIC PANEL Collected: 03/09/2018 Status: F Source: [facility] 4:15 AM HEALTH SYSTEM REPOSITORY TYPE CODE TESTS RESULT OUT OF REFERENCE UNITS RANGE LAB NA(LOINC) 136-145 mEq/L Sodium Blood 143 LAB K(LOINC) 3.5-5.1 mEq/L Low Potassium Blood 3.4 LAB CL(LOINC) 98-107 mEq/L Chloride Blood 105 LAB CO2(LOINC) 21-32 mEq/L CO2 Blood 32 LAB GLU(LOINC) 70-99 mg/dL Glucose High Blood 106 LAB BUN(LOINC) 7-18 mg/dL BUN Blood 18 LAB CREA(LOINC 0.67-1.17 mg/dL ) Creatinine Blood 1.02 LAB CA(LOINC) 8.5-10.1 mg/dL Calcium Blood 9.2 LAB ANGAP(LOIN 8-16 C) Anion Gap 9 Performed By: #### P8 #### [facility] [address] [place] [address] MAGNESIUM BLOOD Collected: 03/09/2018 Status: F Source: [facility] 4:15 AM HEALTH SYSTEM REPOSITORY TYPE CODE TESTS RESULT OUT OF REFERENCE UNITS RANGE LAB MAG(LOINC) 1.6-2.6 mg/dL Magnesium Blood 2.2 Performed By: #### MAG #### [facility] [address] [place] [address] CONSULT Observed: 03/09/2018 Status: COMPLETED Source: [place] 12:00 AM CLINIC OTHER CAMPUS REPOSITORY HNO ID: [id number] Author: Ratna Bhatt Service: Cardiovascular Medicine Author Type: Physician Type: Consults Filed: 03/10/2018 7:32 AM Note Text: [facility] - Consultation PATIENT NAME: MAXX KNOTT CSN: [id number] DATE OF : 1950 SEX/AGE: M/67 PATIENT TYPE: I [place] [facility] [place] [facility] LOCATION: [id number] DATE OF SERVICE: 03/09/[address] Sabrina Sorensen from [facility]. CHIEF COMPLAINT: Chest pain. HISTORY OF PRESENT ILLNESS: This is a 67-year-old gentleman who comes in with chest pain that started after he fell when he flopped on the floor yesterday. He did not pass out. Since then he has had some constant chest pain. He said it is like his heart, so he sought medical attention. Prior to this, he says he was not having any particular new chest pain. He has a history of remote bypass grafting and apparently stenting up at about a year ago. However, his management is complicated because he has been seen in numerous hospitals by numerous physicians, numerous cardiologists, and according to at least one recent note, he has been hospitalized at least 10 times over the last year for chest pain and pain syndromes. He just was hospitalized last month and had a PET scan done, which was very sensitive for ischemia. This was negative for ischemia. The EF has been in the normal range. He has a history of tobacco and still smokes a pipe. He has some degree of COPD. Again, he has had bypass grafting and a catheterization done a year so ago. He did have some closure of his vein graft and he apparently had stenting done of the LAD. He was seen here in consult by [facility] by Dr. Santana about a month ago for chest pain. He does have a history of diverticulitis and has a chronic diverting ileostomy. He has had a parastomal hernia. He also goes to the [facility]. He has a history of a small AAA 3.1 cm. He is not listed as having any diabetes. He also has a pacemaker for bradycardia. He denies alcohol. He. There is a family history of heart disease. He is on an extensive medical regimen at home and he says he is compliant. It includes Percocet, Ranexa, aspirin, amlodipine, Pravachol, metoprolol, Seroquel, albuterol, losartan, and Lasix. He denies any syncope. He denies palpitations. He denies stroke or TIA. He denies any long car trips or plane trips. He says he has had some subjective fevers and chills. No nausea. No definite upper GI bleeding or lower GI bleeding. ALLERGIES: Per the [facility]. PHYSICAL EXAMINATION: GENERAL: Chronically ill-appearing gentleman, very pleasant, slightly depressed affect. No actual acute distress. Cooperative on exam. Pretty normal speech. Balding male hair pattern. VITAL SIGNS: Blood pressure is variable from 120/60 up to 160/70, pulse is 60 and sinus, respirations are 18. NEUROLOGIC: Nonfocal. Follows commands. Normal mentation. HEENT: Pupils equal. Eyelids normal. NECK: No obvious carotid bruit. Normal upstroke. Do not appreciate any JVD. Cannot assess for thyromegaly. Normal range of motion. CHEST: Diminished breath sounds. Healed sternotomy. Healed pacer site. Prolonged expiration. No wheeze. No accessory muscle use. CARDIAC: Regular rhythm. Distant heart sounds. No murmur or gallop. [place] nonpalpable. ABDOMEN: Soft, mildly obese. No obvious hepatomegaly. No rebound. EXTREMITIES: Radial pulses are 1+ to 2+. Dorsalis pedis pulses are 1+. Extremities are well perfused. No significant edema or calf tenderness. LABORATORY DATA: Cardiac enzymes negative x2. EKG, sinus rhythm, old inferior infarct, left axis deviation, and nonspecific ST- T changes and this is unchanged. Sodium 143, potassium 4.4. BUN 18, creatinine 1. Hematocrit 38, white count 7, platelets 262,000. IMPRESSION: 1. Coronary artery disease with a history of bypass grafting and then as well as possibly a stent to the left anterior descending about a year ago. His management is really difficult because he goes to numerous hospitals and has been hospitalized almost monthly for chest pain. This is noted by other cardiologists elsewhere. He just had a PET scan, which was negative for ischemia within the last month. This is a very sensitive in fairly accurate test. Given his lack of any enzyme leak or EKG changes and the fact that this was constant chest pain after a fall, I would not proceed with another heart catheterization today. Dr. Anne might want to consider an outpatient catheterization at some point only to document that his recent stenting site is patent to avoid recurrent hospitalizations. At this point, the patient will go home on his usual medications. 2. Tobacco, consult to quit, unlikely to occur. Some degree of chronic obstructive pulmonary disease. 3. Mild hypokalemia, replete orally. 4. Lipids. He is on statin therapy. 5.Hx pacer-for conduction disease Thank you for the consult on this very challenging gentleman. Ratna Bhatt MD Cardiology DAC:modl /[id number] cc:René Anne MD * Dr. Viral Ordonez Primary care physician TROPONIN I Collected: 03/08/2018 Status: F Source: [facility] 8:09 PM HEALTH SYSTEM REPOSITORY TYPE CODE TESTS RESULT OUT OF REFERENCE UNITS RANGE LAB TROP(LOINC) 0.015-0.045 ng/ml Troponin I 0.022 Performed By: #### TROP #### [place] [address] EKG (AK,AV,EU,FV,HL,DEMARCO,MM,SP) Observed: Status: F Source: [place] 03/08/2018 8:02 PM [facility] OTHER CAMPUS REPOSITORY NAME : MAXX KNOTT PID : [id number] : 1950 Gender : Male Race : ORD : [id number] Procedure Date : Mar 08 2018 20:02 Edit Date : Mar 13 2018 08:54 Diagnosis:SINUS RHYTHM WITH 1ST DEGREE A-V BLOCK POSSIBLE LEFT ATRIAL ENLARGEMENT INCOMPLETE RIGHT BUNDLE BRANCH BLOCK POSSIBLE INFERIOR INFARCT (CITED ON OR BEFORE 08-MAR-2018) T WAVE ABNORMALITY, CONSIDER ANTEROLATERAL ISCHEMIA ABNORMAL ECG WHEN COMPARED WITH ECG OF 08-MAR-2018 11:16, PREMATURE VENTRICULAR COMPLEXES ARE NO LONGER PRESENT AK INTERVAL HAS INCREASED Confirmed by DO Walker Jeffrey ([id number]) on 03/13/2018 8:54:22 AM Ventricular Rate : 63 BPM Atrial Rate : 63 BPM P-R Interval : 226 ms QRS Duration : 116 ms Q-T Interval : 418 ms QTC Calculation(Bezet) : 427 ms P [place] : 45 degrees R [place] : 51 degrees T [place] : 118 degrees Test Reason : Chest Pain Location : 42 : [id number] Overread By : DO Walker Jeffrey Editted By : DO Walker Jeffrey Referred By : SABRINA SORENSEN Acquired by : Amira Sanchez ED NOTE Observed: 03/08/2018 Status: COMPLETED Source: [place] 6:21 PM [facility] REPOSITORY HNO ID: [id number] Author: Joan KingRnBeth Burton RN Service: Emergency Medicine Author Type: Registered Nurse Type: ED Notes Filed: 03/08/2018 6:21 PM Note Text: Pt given boxed lunch. HISTORY PHYSICAL Observed: 03/08/2018 Status: COMPLETED Source: [place] 5:28 PM [facility] REPOSITORY HNO ID: [id number] Author: Sabrina Sorensen Service: Hospital Medicine Author Type: Physician Type: HANDP Filed: 03/08/2018 5:43 PM Note Text: DEPARTMENT OF HOSPITAL MEDICINE HISTORY AND PHYSICAL EXAM SERVICE DATE: 03/08/2018 SERVICE TIME: 4:30 PM Primary Care Physician: Bijan Perez MD NIGHT AND WEEKEND COVERAGE: From 7am - 7pm, please call [phone] After 7pm, please call cross cover pager #[phone] Subjective CHIEF COMPLAINT: Chest pain HPI: 67yo M with a pertinent history of CAD with CABG in 2006 and stents in the recent past whom presents with Chest pain. Patient states it started at 10am and was a dull pressure sensation in the mid sternal region about 5/10 in nature and got better with nitroglycerine. States he also has abdominal pain associated with this which is resolving. [place] nauseous, was diaphoretic, and no radiation of the pain. Dyspnea with exertion initially which feels better now. ROS: no vomiting, no lower extremity edema, no headaches, no blurry vision, and no weakness. Other past medical history includes ostomy from diverticulitis perforation that required resection, COPD, and pacemaker for Bradycardia in the past. Smokes currently and has been for 45 years 1pk/day. Rest of the medical, surgical, social, and family history as written below. PAST MEDICAL HISTORY Diagnosis Date - AAA (abdominal aortic aneurysm) without rupture ([facility]) 05/13/[address] a/p - CAD (coronary artery disease) 2005 CAD s/p CABG x3 (RVHH-WXR-hkalas, NTM-LTS-smbmct, VPY-MR3-uptneucy) (2006 at [facility]) - COPD (chronic obstructive pulmonary disease) ([facility]) - Current every day smoker PT SMOKES A PIPE - Diverticulitis Perforated Diverticulitis - Diverticulitis of sigmoid colon 05/15/2017 Added automatically from request for surgery [id number] - Hx of CABG - Pacemaker 02/16/2017 s/p PPM () 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 - Peritonitis ([facility]) PAST SURGICAL HISTORY Procedure Laterality Date - APPENDECTOMY HX - COLOSTOMY 07/2016 Diverting Loop Colostomy of the Transverse Colon - HEART SURGERY HX triple bypass 10 yrs ago - PPM IMPLANT - STENT - CORONARY FAMILY HISTORY Problem Relation Age of Onset - Coronary Artery Disease Father - Hyperlipidemia Father Social History Substance Use Topics - Smoking status: Current Every Day Smoker Packs/day: 0.50 Years: 35.00 Types: Pipe, Cigarettes - Smokeless tobacco: Never Used Comment: Quit cigarettes 11-16-16 now smoking 4 pipes as of 04-18-17 - Alcohol use No MEDICATIONS: Reviewed (Not in a hospital admission) ALLERGIES Allergen Reactions - Altaseptic Unknown - Brilinta [Ticagrelo* Unknown - Crestor [Rosuvastat* Myalgia - Hctz [Amiloride-Hyd* Swelling - Moxifloxacin Swelling - Other [place]-3s Unknown brelinta - Ramipril Swelling Other reaction(s): Facial swelling - Simvastatin Myalgia Other reaction(s): Facial swelling - Voltaren [Diclofena* Unknown REVIEW OF SYSTEM: General: no fatigue, no weakness, no fever/chills HEENT: no cough, no nasal congestion, no sore throat Respiratory: no cough, dyspnea, no wheezing, no hemoptysis, Cardio: chest pain, exertional dyspnea, no leg swelling,no palpitations GI: nausea, no vomiting, no diarrhea, no abdominal pain : no dysuria, no frequency, no incontinence Musculoskeletal: no joint pain, no joint swelling, no muscle pain, no back pain Skin: no rashes, no ulcers, no itching Endocrine: no cold nor heat intolerance, no polyuria, no goiter Neuro: no headaches, no syncope, no paralysis, no seizures, no tremors Objective PHYSICAL EXAM: BP 165/72 Pulse 75 Temp (Src) 98.1 (Oral) Resp 22 Ht 5' 8 (1.73m) Wt 195 lb (88.5kg) SpO2 98% BMI 29.66 kg/(m2). Physical Exam Performed: GENERAL: Alert, no distress, cooperative SKIN: Skin color, texture, turgor normal. No rashes or lesions. HEAD/SINUSES: No significant findings EYES: PERRLA, EOMI EARS: External ears normal, canals clear NOSE: Nares normal. Septum midline. OROPHARYNX: Lips, mucosa, and tongue normal. Teeth and gums normal. Oropharynx normal. LUNGS: No wheezing, no crackles, has decreased air movement that is chronic CARDIAC: Normal S1 and S2; no rubs, murmurs, or gallops, RRR ABDOMEN: Abdomen soft, non-tender, BS normal, No masses or organomegaly EXTREMITIES: Extremities normal, no deformities, edema, clubbing or skin discoloration. Good capillary refill., No ulcers NEURO: Reflexes normal and symmetric. Sensation grossly intact, Cranial nerves II-XII intact PULSES: 2+ radial, 2+ carotid Lines, Drains, and Airways Line Peripheral 03/08/18 1230 Right Arm 20 Gauge less than 1 day Reviewed lines, drains, AND airways. Need to be continued . DATA: Diagnostic tests reviewed for today's visit: Most recent labs and imaging results. Troponins negative, EKG unremarkable (no ST depressions nor elevations) Assessment/Plan 1) Typical Chest Pain with history of CAD with CABG and stents in the past. Stress test 1 month ago negative. - Nitroglycerine 0.4 Q5 minutes as needed for chest pain - Aspirin 81mg daily - Metoprolol 100mg daily - Pravastatin 40mg QD - Ranexa 500mg BID - Telemetry - Cardiology consult for potential cardiac catheterization 2) HFrEF of 45% not in exacerbation - Continue Losartan 100mg QD - Continue Metoprolol as mentioned in #1 - Lasix 40mg daily as needed for fluid overload 3) COPD not in exacerbation - Albuterol 2 puffs every 4 hours as needed 4) HTN: - Continue Norvasc 10 mg QD 5) Tobacco Abuse - Counseled patient on quitting Medication and Non-Pharmacologic VTE Prophylaxis/Anticoagulants VTE Prophylaxis: VTE prophylaxis appropriate Disposition: Inpatient Plan of care discussed with: Patient SIGNATURE: Sabrina Sorensen MD PATIENT NAME: Maxx Knott DATE: March 08, 2018 TIME: 5:28 PM PAGER/CONTACT #: [phone] etx [id number] [facility] TROPONIN I Collected: 03/08/2018 Status: F Source: [facility] 4:45 PM HEALTH SYSTEM REPOSITORY TYPE CODE TESTS RESULT OUT OF REFERENCE UNITS RANGE LAB ERTRP(LOINC 0.015-0.045 ng/ml ) [facility] Troponin I 0.024 Performed By: #### ERTRP #### [place] [address] CONSULT Observed: 03/08/2018 Status: COMPLETED Source: [place] 3:09 PM CLINIC OTHER CAMPUS REPOSITORY HNO ID: [id number] Author: Olivia Eugene Service: General Surgery Author Type: Resident Type: Consults Filed: 03/08/2018 5:53 PM Note Text: Attestation signed by Tj Halwey at 03/09/2018 11:46 AM Outpatient management Tj Hawley MD CONSULT: EMERGENCY GENERAL SURGERY SERVICE SERVICE DATE: 03/08/2018 SERVICE TIME: 3:10 PM REASON FOR CONSULT: Prolapsed Stoma REQUESTING PHYSICIAN: Dr. Kiran PRIMARY CARE PHYSICIAN: Bijan Perez MD Subjective Mr. Knott is a 67 year old male with an extensive cardiac history, recurrent sigmoid diverticulitis, diverting loop colostomy with known non-obstructing parastomal and prolapsing stoma presenting for chest pain. He states pain was somewhat relieved with nitroglycerin. He states his stoma has been out like usual and he has been able to reduce it, but it just come right back out. He has been having regular bowel movements but today they have been slightly decreased. Patient is well known to our service for multiple recurrent hospitalizations. He has been evaluated by our surgical team and deemed a poor surgical candidate. He is also known to [facility] service at [facility] and has followed up with their clinic for elective surgical planning. According to the patient, due to his extensive cardiac history he will have to be medically optimized before reversal of his colostomy could be done. CTA Chest Abdomen Pelvis: No evidence of thoracic aortic aneurysm or dissection. Stable 12 mm right upper lobe pulmonary nodule. ?Stable lower lobe pulmonary nodule.?See below. Stable enlarged right thyroid gland. Stable small left diaphragmatic hernia containing only fat. Bilateral renal cysts do not appear significantly changed. Stable mild fusiform infrarenal abdominal aortic aneurysm. ?No abdominal aortic dissection. Left adrenal hyperplasia. ?Prostate gland hypertrophy. Right upper quadrant colostomy with parastomal hernia containing a small bowel loop. ?No bowel obstruction. Other chronic and incidental findings as described above. ? 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 - Peritonitis ([facility]) PAST SURGICAL HISTORY Procedure Laterality Date - APPENDECTOMY HX - COLOSTOMY 07/2016 Diverting Loop Colostomy of the Transverse Colon - HEART SURGERY HX triple bypass 10 yrs ago - PPM IMPLANT - STENT - CORONARY FAMILY HISTORY Problem Relation Age of Onset - Coronary Artery Disease Father - Hyperlipidemia Father Social History Substance Use Topics - Smoking status: Current Every Day Smoker Packs/day: 0.50 Years: 35.00 Types: Pipe, Cigarettes - Smokeless tobacco: Never Used Comment: Quit cigarettes 11-16-16 now smoking 4 pipes as of 04-18-17 - Alcohol use No (Not in a hospital admission) Current hospital medications: iv contrast (radiology procedure) INTRAVENOUS DIRECTED PRN Allergies As of Date: 03/08/2018 Allergen Noted Reaction ALTASEPTIC 12/17/2016 Unknown BRILINTA [TICAGRELOR] 08/09/2017 Unknown CRESTOR [ROSUVASTATIN CALCIUM] 12/17/2016 Myalgia HCTZ [AMILORIDE-HYDROCHLOROTHIAZI*12/17/2016 Swelling MOXIFLOXACIN Swelling OTHER OMEGA-3S 07/06/2017 Unknown RAMIPRIL 12/17/2016 Swelling SIMVASTATIN 12/17/2016 Myalgia VOLTAREN [DICLOFENAC SODIUM] 12/17/2016 Unknown Fully Assessed 03/08/2018 COMPLETE REVIEW OF SYSTEMS: as per HPI Objective PHYSICAL EXAM: Physical Exam Performed: GENERAL: Alert, no distress, cooperative EYES: EOMI NECK: Supple LUNGS: stable on RA CARDIAC: Rhythm: regular rate and rhythm ABDOMEN: soft, some TTP along midline, parastomal hernia and stoma prolapsed stoma, easily reducible, stool in stoma bag with air EXTREMITIES: AMEZQUITA NEURO: Grossly normal cognition, motor function, and cranial nerves III-XII BP 160/75 Pulse 76 Temp (Src) 98.1 (Oral) Resp 20 Ht 5' 8 (1.73m) Wt 195 lb (88.5kg) SpO2 97% BMI 29.66 kg/(m2). DATA: Diagnostic tests reviewed for today's visit: Most recent labs and imaging results. CBC: Recent Labs 03/08/18 1230 WBC 10.72* RBC 4.30* HB 13.4* HCT 39.6* PLT 311 MCV 92.1 MCH 31.2 MPV 10.0 RDW 13.9 BMP: Recent Labs 03/08/18 1230 NA 137 K 3.4* CHLOR 101 CO2 27 BUN 14 CREAT 0.81 GLUC 105* Liver Function, Amylase, Lipase: Recent Labs 03/08/18 1230 TPROT 7.9 ALB 3.9 ALT 34 AST 26 ALKPHOS 108 TBILI 0.4 LIPASE 44* Impression/Recommendations - Patient has no acute obstruction or stoma compromise at this time, no acute surgical intervention indicated - He should follow up with his colorectal [facility] as patient indicated he is suppose to have followed up for colostomy reversal - Patient has an extensive cardiac history and should also 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 Hawley Emergency General Surgery Service Pager: For questions or concerns Mon-Fri 6a-5p please page [phone]. After 5pm and on Weekends and Holidays, please page [phone] if in ICU or [phone] if on RNF. SIGNATURE: Olivia Eugene MD PATIENT NAME: Maxx Knott DATE: March 08, 2018 TIME: 3:09 PM PAGER: above ED NOTE Observed: 03/08/2018 Status: COMPLETED Source: [place] 1:55 PM CLINIC OTHER CAMPUS REPOSITORY HNO ID: [id number] Author: Ally Toth) MITCHELL Andrade Service: Emergency Medicine Author Type: Registered Nurse Type: ED Notes Filed: 03/08/2018 1:55 PM Note Text: urine specimen obtained and sent. ED NOTE Observed: 03/08/2018 Status: COMPLETED Source: [place] 1:54 PM CLINIC OTHER CAMPUS REPOSITORY HNO ID: [id number] Author: Ally Toth) MITCHELL Andrade Service: Emergency Medicine Author Type: Registered Nurse Type: ED Notes Filed: 03/08/2018 1:54 PM Note Text: Visitor at bedside. ED NOTE Observed: 03/08/2018 Status: COMPLETED Source: [place] 1:53 PM CLINIC OTHER CAMPUS REPOSITORY HNO ID: [id number] Author: Ally (Rn) MITCHELL Andrade Service: Emergency Medicine Author Type: Registered Nurse Type: ED Notes Filed: 03/08/2018 1:53 PM Note Text: Patient returned to the Emergency Department. URINALYSIS ROUTINE Collected: 03/08/2018 Status: F Source: [facility] 1:50 PM HEALTH SYSTEM REPOSITORY TYPE CODE TESTS RESULT OUT OF RANGE REFERENCE UNITS LAB COLOR(LOIN C) Urine Color YELLOW LAB APPUR(LOIN C) Urine Appearance CLEAR LAB GLUUR(LOIN Negative mg/dL C) Glucose Urine NEGATIVE LAB KETON(LOIN Negative mg/dL C) Ketone Urine NEGATIVE LAB HGBUR(LOIN Negative C) Hemoglobin,Urin NEGATIVE e LAB PROTU(LOIN Negative mg/dL C) Abnormal Protein Urine 100 LAB NITRI(LOIN Negative C) Nitrites Urine NEGATIVE LAB BILIU(LOIN Negative C) Bilirubin Urine NEGATIVE LAB SPG(LOINC) 1.005-1.030 Specific 1.028 [place], Ur LAB PHUR(LOINC 5.0-8.0 ) pH,Urine 6.5 LAB UROBI(LOIN 0.0-1.0 EU/dL C) Urobilinogen,Ur 0.2 LAB LEUKO(LOIN Negative C) Leukocytes NEGATIVE Esterase LAB RBCU1(LOIN 0.0-5.0 /hpf C) High RBC,Urine 5.9 LAB WBCU1(LOIN 0.0-5.0 /hpf C) WBC, Urine 0.6 LAB EPIT1(LOIN 0.0-5.0 /hpf C) Ep Cells Urine 0.3 LAB BACT1(LOIN None C) Bacteria Urine NONE LAB HYCA1(LOIN 0.0-1.0 /lpf C) Hyaline Cast 0.8 Performed By: #### URIN2 #### [facility] [address] [address] CHEST 2 VIEWS Observed: 03/08/2018 Status: F Source: [facility] 1:39 PM HEALTH SYSTEM REPOSITORY Performed at [facility] APPROVED BY: Neisha Joy MD EXAMINATION: CHEST RADIOGRAPH (2 VIEW FRONTAL & LATERAL) CLINICAL HISTORY: Chest pain. MQ: XC2_5 Comparison: CTA chest 02/02/2018. CT chest 08/09/2017. CT abdomen and pelvis 09/20/2016 RESULT: Lines, tubes, and devices: Dual lead cardiac pacer device in stable position. Prior coronary artery bypass graft surgery. Lungs and pleura: No consolidation. No lung mass. No pleural effusion or pneumothorax. Cardiomediastinal silhouette: Within normal limits and unchanged Other: Focal rounded density along the mid left diaphragm consistent with small chronic diaphragmatic hernia. The visualized osseous structures appear stable. IMPRESSION: No acute radiographic abnormality. CTA CHEST (GATED) Observed: 03/08/2018 Status: F Source: [facility] WO/W IV CON 1:37 PM HEALTH SYSTEM REPOSITORY Performed at [facility] APPROVED BY: Neisha Joy MD EXAMINATION: CTA CHEST (GATED) WITHOUT AND WITH IV ULTRASOUND CONTRAST, CTA ABD/PEL WITH IV CONTRAST CLINICAL HISTORY: TECHNIQUE: Helical axial images were obtained through the chest before contrast ministration. Spiral high resolution axial images were obtained through the chest, abdomen, and pelvis following bolus administration of intravenous contrast for CT angiography. Post-processed 3D maximum intensity projections were created, reviewed and archived. MQ: CTAHN_4 Contrast: 150 mL Omnipaque 350 IV Dose-Length Product (DLP): 1300 mGy*cm. CT Dose Reduction Employed: Automated exposure control (AEC) was used. COMPARISON: CTA chest, abdomen, and pelvis 02/02/2018. CT abdomen and pelvis 09/20/2016. CT chest 08/09/2017. RESULT: Limitations: None. Chest: Lines, tubes, and devices: Dual lead transvenous cardiac pacer device. Prior coronary artery bypass graft surgery. Lung parenchyma and pleura: No consolidation. There is a nodule that measures 12 x 9 mm in the superomedial right upper lobe on image #30, series 4 it appears stable dating back to 08/09/2017. Stable 6 mm pleural-based nodule in the lateral costophrenic angle. No pleural effusion. Central airways are patent. Thoracic inlet, heart, and mediastinum: Thoracic aorta is normal in caliber. No evidence of thoracic aortic intramural hematoma or dissection. No lymphadenopathy in the axillary, mediastinal, or irene r regions. Cardiac size is within normal limits. No pericardial effusion or thickening. The right thyroid gland is enlarged. No evidence of central pulmonary embolus. Diaphragm: There is a small left diaphragmatic hernia noted containing a small amount of intra-abdominal fat. This isn't present dating back to at least 09/03/2016. Abdomen / Pelvis: Liver: No mass. Biliary: No bile duct dilation. Spleen: No mass. No splenomegaly. Pancreas: No mass or duct dilation. Adrenals: Left adrenal gland thickening consistent with hyperplasia is unchanged. Right adrenal gland is within normal limits. Kidneys: Bilateral renal cysts again noted in both kidneys. Accessory bilateral renal arteries raising from the distal abdominal aorta are again noted. GI tract: Right upper quadrant colostomy again noted. There is a parastomal hernia noted that contains a small bowel loop. Colonic diverticulosis without evidence of acute diverticulitis. Large and s mall bowel loops are otherwise unremarkable. Appendix is not visualized. Lymph nodes: No abdominal or pelvic lymphadenopathy. Mesentery/Peritoneum: No ascites or mass. Retroperitoneum: No mass. Vasculature: The celiac axis and SMA are patent. The portal vein and branches, splenic vein, SMV, and hepatic veins are patent. . Mild aneurysmal dilatation of the infrarenal abdominal aorta that bette sures 3.1 x 3.2 cm No abdominal aortic dissection. Pelvis: No mass, ascites or fluid collection. Prostate gland is enlarged. No urinary bladder calculi. Bones/Soft Tissues: No suspicious destructive osseous lesion. IMPRESSION: No evidence of thoracic aortic aneurysm or dissection. Stable 12 mm right upper lobe pulmonary nodule. Stable lower lobe pulmonary nodule. See below. Stable enlarged right thyroid gland. Stable small left diaphragmatic hernia containing only fat. Bilateral renal cysts do not appear significantly changed. Stable mild fusiform infrarenal abdominal aortic aneurysm. No abdominal aortic dissection. Left adrenal hyperplasia. Prostate gland hypertrophy. Right upper quadrant colostomy with parastomal hernia containing a small bowel loop. No bowel obstruction. Other chronic and incidental findings as described above. Incidental Finding: Follow-up for this incidentally detected lung nodule with PET/CT or biopsy within 4 weeks, or chest CT exam in 3 months is recommended. CTA ABD/PEL W IV CON Observed: 03/08/2018 Status: F Source: [facility] 1:37 PM HEALTH SYSTEM REPOSITORY Performed at [facility] APPROVED BY: Neisha Joy MD EXAMINATION: CTA CHEST (GATED) WITHOUT AND WITH IV ULTRASOUND CONTRAST, CTA ABD/PEL WITH IV CONTRAST CLINICAL HISTORY: TECHNIQUE: Helical axial images were obtained through the chest before contrast ministration. Spiral high resolution axial images were obtained through the chest, abdomen, and pelvis following bolus administration of intravenous contrast for CT angiography. Post-processed 3D maximum intensity projections were created, reviewed and archived. MQ: CTAHN_4 Contrast: 150 mL Omnipaque 350 IV Dose-Length Product (DLP): 1300 mGy*cm. CT Dose Reduction Employed: Automated exposure control (AEC) was used. COMPARISON: CTA chest, abdomen, and pelvis 02/02/2018. CT abdomen and pelvis 09/20/2016. CT chest 08/09/2017. RESULT: Limitations: None. Chest: Lines, tubes, and devices: Dual lead transvenous cardiac pacer device. Prior coronary artery bypass graft surgery. Lung parenchyma and pleura: No consolidation. There is a nodule that measures 12 x 9 mm in the superomedial right upper lobe on image #30, series 4 it appears stable dating back to 08/09/2017. Stable 6 mm pleural-based nodule in the lateral costophrenic angle. No pleural effusion. Central airways are patent. Thoracic inlet, heart, and mediastinum: Thoracic aorta is normal in caliber. No evidence of thoracic aortic intramural hematoma or dissection. No lymphadenopathy in the axillary, mediastinal, or irene r regions. Cardiac size is within normal limits. No pericardial effusion or thickening. The right thyroid gland is enlarged. No evidence of central pulmonary embolus. Diaphragm: There is a small left diaphragmatic hernia noted containing a small amount of intra-abdominal fat. This isn't present dating back to at least 09/03/2016. Abdomen / Pelvis: Liver: No mass. Biliary: No bile duct dilation. Spleen: No mass. No splenomegaly. Pancreas: No mass or duct dilation. Adrenals: Left adrenal gland thickening consistent with hyperplasia is unchanged. Right adrenal gland is within normal limits. Kidneys: Bilateral renal cysts again noted in both kidneys. Accessory bilateral renal arteries raising from the distal abdominal aorta are again noted. GI tract: Right upper quadrant colostomy again noted. There is a parastomal hernia noted that contains a small bowel loop. Colonic diverticulosis without evidence of acute diverticulitis. Large and s mall bowel loops are otherwise unremarkable. Appendix is not visualized. Lymph nodes: No abdominal or pelvic lymphadenopathy. Mesentery/Peritoneum: No ascites or mass. Retroperitoneum: No mass. Vasculature: The celiac axis and SMA are patent. The portal vein and branches, splenic vein, SMV, and hepatic veins are patent. . Mild aneurysmal dilatation of the infrarenal abdominal aorta that bette sures 3.1 x 3.2 cm No abdominal aortic dissection. Pelvis: No mass, ascites or fluid collection. Prostate gland is enlarged. No urinary bladder calculi. Bones/Soft Tissues: No suspicious destructive osseous lesion. IMPRESSION: No evidence of thoracic aortic aneurysm or dissection. Stable 12 mm right upper lobe pulmonary nodule. Stable lower lobe pulmonary nodule. See below. Stable enlarged right thyroid gland. Stable small left diaphragmatic hernia containing only fat. Bilateral renal cysts do not appear significantly changed. Stable mild fusiform infrarenal abdominal aortic aneurysm. No abdominal aortic dissection. Left adrenal hyperplasia. Prostate gland hypertrophy. Right upper quadrant colostomy with parastomal hernia containing a small bowel loop. No bowel obstruction. Other chronic and incidental findings as described above. Incidental Finding: Follow-up for this incidentally detected lung nodule with PET/CT or biopsy within 4 weeks, or chest CT exam in 3 months is recommended. ED NOTE Observed: 03/08/2018 Status: COMPLETED Source: [place] 1:24 PM [facility] OTHER [place] REPOSITORY HNO ID: [id number] Author: Ally Toth) MITCHELL Andrade Service: Emergency Medicine Author Type: Registered Nurse Type: ED Notes Filed: 03/08/2018 1:24 PM Note Text: Patient transported to radiology ED NOTE Observed: 03/08/2018 Status: COMPLETED Source: [place] 1:13 PM [facility] REPOSITORY HNO ID: [id number] Author: Ally Toth) MITCHELL Andrade Service: Emergency Medicine Author Type: Registered Nurse Type: ED Notes Filed: 03/08/2018 1:13 PM Note Text: Ready for radiology HEMOGRAM/DIFF Collected: 03/08/2018 Status: F Source: [facility] 12:30 PM HEALTH SYSTEM REPOSITORY TYPE CODE TESTS RESULT OUT OF REFERENCE UNITS RANGE LAB WBC(LOINC) 4.23-9.07 thou/cmm WBC High 10.72 LAB RBC(LOINC) 4.63-6.08 mil/cmm Low RBC 4.30 LAB HGB(LOINC) 13.7-17.5 g/dL Low Hgb 13.4 LAB HCT(LOINC) 40.1-51.0 % Low Hct 39.6 LAB MCV(LOINC) 83.2-95.6 fl MCV 92.1 LAB MCH(LOINC) 25.7-32.2 pg MCH 31.2 LAB MCHC(LOINC 32.3-36.5 % ) MCHC 33.8 LAB RDW(LOINC) 11.6-14.4 % RDW 13.9 LAB RDWSD(LOIN 36.1-45.8 fl C) RDW SD High 47.2 LAB PLT(LOINC) 141-365 thou/cmm Platelet 311 LAB MPV(LOINC) 8.7-12.0 fl MPV 10.0 LAB SEG(LOINC) % Seg Neutrophil 82.5 LAB IGRE(LOINC % ) Immature Grans 0.30 LAB LYMPH(LOIN % C) Lymphocyte 11.9 LAB MNO(LOINC) % Monocyte 5.0 LAB EOSIN(LOIN % C) Eosinophil 0.1 LAB BASO(LOINC % ) Basophil 0.2 LAB SEGN(LOINC 1.78-5.38 thou/cmm ) Abs. High Neut (ANC) 8.84 LAB IGAB(LOINC 0.00-0.05 thou/cmm ) Abs Immature Grans 0.03 LAB LYMN(LOINC 0.84-2.85 thou/cmm ) Abs. Lymph 1.28 LAB MONON(LOIN 0.30-0.82 thou/cmm C) Abs. [place] 0.54 LAB EOSN(LOINC 0.04-0.54 thou/cmm ) Low Abs. Eosin 0.01 LAB BASON(LOIN 0.01-0.08 thou/cmm C) Abs. Baso 0.02 Performed By: #### CBCD1 #### [place] [address] PROTIME Collected: 03/08/2018 Status: F Source: [facility] 12:30 PM HEALTH SYSTEM REPOSITORY TYPE CODE TESTS RESULT OUT OF REFERENCE UNITS RANGE LAB PTI(LOINC) 9.7-13.0 sec Prothrombin Time 11.4 LAB INR(LOINC) 0.90-1.30 INR 1.10 Result Comment: Note: Reference Range Change Vitamin K Antagonist (VKA) Therapeutic Range: INR 2 to 3 (Target INR of 2.5) Note: For patients treated with VKA drugs, such as warfarin, the [place] [employer] 2012 Guideline recommends a therapeutic INR range of 2 to 3 (target INR of 2.5). This recommendation includes high-risk patients with antiphospholipid syndrome with previous arterial or venous thromboembolism, current-generation mechanical or bioprosthetic aortic heart valve replacement. VKA Therapeutic Range for some Mechanical Valve Replacement: INR 2.5 to 3.5 (Target INR of 3) Note: Patients with mechanical aortic valve replacement and additional risk factors for thromboembolic events (atrial fibrillation, previous thromboembolism, LV dysfunction, hypercoagulable conditions) or an older generation mechanical AVR (i.e., ball in-Cage) or any mechanical MVR should have a INR therapeutic range of 2.5 to 3.5 target INR of 3). Lorelei GH, et al. Chest 2012; 141:7S-47S Teofilo RA, et al. [facility] 2017; 70: 252-289 Performed By: #### PT #### [facility] [address] [address] LACTIC ACID Collected: 03/08/2018 Status: F Source: [facility] 12:30 PM HEALTH SYSTEM REPOSITORY TYPE CODE TESTS RESULT OUT OF REFERENCE UNITS RANGE LAB LAC(LOINC) 0.4-2.0 mEq/L Lactic Acid 1.2 Performed By: #### LAC #### [facility] [address] [address] COMPREHENSIVE PANEL Collected: 03/08/2018 Status: F Source: [facility] 12:30 [facility] SYSTEM REPOSITORY TYPE CODE TESTS RESULT OUT OF REFERENCE UNITS RANGE LAB NA(LOINC) 136-145 mEq/L Sodium Blood 137 LAB K(LOINC) 3.5-5.1 mEq/L Low Potassium Blood 3.4 LAB CL(LOINC) 98-107 mEq/L Chloride Blood 101 LAB CO2(LOINC) 21-32 mEq/L CO2 Blood 27 LAB GLU(LOINC) 70-99 mg/dL Glucose High Blood 105 LAB BUN(LOINC) 7-18 mg/dL BUN Blood 14 LAB CREA(LOINC 0.67-1.17 mg/dL ) Creatinine Blood 0.81 LAB CA(LOINC) 8.5-10.1 mg/dL Calcium Blood 9.4 LAB ALB(LOINC) 3.4-5.0 g/dL Albumin Blood 3.9 LAB TP(LOINC) 6.4-8.2 g/dL Total Protein 7.9 LAB AST(LOINC) 9-37 U/L AST-SGOT Blood 26 LAB ALT(LOINC) 12-78 U/L ALT-SGPT Blood 34 LAB ALKP(LOINC 46-116 U/L ) Alk Phosphatase 108 LAB BILIT(LOIN 0.2-1.0 mg/dL C) Total Bilirubin 0.4 LAB ANGAP(LOIN 8-16 C) Anion Gap 12 Performed By: #### P14 #### [place] [address] LIPASE BLOOD Collected: 03/08/2018 Status: F Source: [facility] 12:30 PM HEALTH SYSTEM REPOSITORY TYPE CODE TESTS RESULT OUT OF REFERENCE UNITS RANGE LAB LIP(LOINC) 73-393 U/L Low Lipase Blood 44 Performed By: #### LIP #### [place] [address] [facility] TROPONIN I Collected: 03/08/2018 Status: F Source: [facility] 12:30 PM HEALTH SYSTEM REPOSITORY TYPE CODE TESTS RESULT OUT OF REFERENCE UNITS RANGE LAB ERTRP(LOINC 0.015-0.045 ng/ml ) ECU Troponin I 0.019 Performed By: #### ERTRP #### [place] [address] ED NOTE Observed: 03/08/2018 Status: COMPLETED Source: [place] 11:57 AM [facility] REPOSITORY HNO ID: [id number] Author: Ally KingRn) MITCHELL Andrade Service: Emergency Medicine Author Type: Registered Nurse Type: ED Notes Filed: 03/08/2018 11:58 AM Note Text: Unable to obtain iv x 2 ED PROV NOTE Observed: 03/08/2018 Status: COMPLETED Source: [place] 11:50 AM [facility] OTHER [place] REPOSITORY HNO ID: [id number] Author: Mikhail Kiran DO Service: Emergency Medicine Author Type: Resident Type: ED Provider Notes Filed: 03/08/2018 7:08 PM Note Text: Attestation signed by Parul Santillan MD at 03/08/2018 7:24 PM Attending Note I evaluated the patient and personally participated in the nelson components. I agree with the resident's findings and plan as documented and have discussed the case and management of the patient's care with the resident. Signature: Parul Santillan MD Date: 03/08/2018 Time: 7:24 PM ED Provider Note Patient Name: Maxx Knott SERVICE DATE: 03/08/18 History Patient presents with: Chest Pain: Pt with CP midsternal that started about 30 minutes ago. Pt took 3 nitros at home with some relief. +SOB +nausea +cough productive with mota in color. Pt also with abdominal pain that started about 30 minutes ago as well. Pt with right lower quadrant colostomy bag. Pt with protrusion of stoma noted. Pt states that this also happened about 30 minutes ago. Pt c./o abdominal pain. Pt states that he fell last night onto his stomach. Pt denies hitting head or LOC. Abdominal Pain Patient is a 67-year-old male with extensive past medical history including abdominal aortic aneurysm, coronary artery disease with CABG in 2005, COPD, diverticulitis colostomy presenting to the emergency department with chief complaint of chest pain. Patient states that approximately 30 minutes prior to arrival he had sudden onset central chest pain/abdominal pain. Patient states he took one nitroglycerin for pain which helped a little however the pain has come back and subsequent nitros did not help. Patient states he took 3 nitros in total. Patient states his pain is been getting worse since then his located in the central chest and diffusely throughout his abdomen. Patient also states he has been having some lower extremity weakness since the onset of the pain. Patient also states that his colostomy is protruding further than normal. Patient denies any episodes of forceful coughing. Patient reports nausea and vomiting. She also states episodes of diaphoresis and chills. Patient states he has been more short of breath as well. Denies any pain or swelling in his legs. 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 - Peritonitis ([facility]) PAST SURGICAL HISTORY Procedure Laterality Date - APPENDECTOMY HX - COLOSTOMY 07/2016 Diverting Loop Colostomy of the Transverse Colon - HEART SURGERY HX triple bypass 10 yrs ago - PPM IMPLANT - STENT - CORONARY FAMILY HISTORY Problem Relation Age of Onset - Coronary Artery Disease Father - Hyperlipidemia Father Social History Social History Main Topics - Smoking status: Current Every Day Smoker Packs/day: 0.50 Years: 35.00 Types: Pipe, Cigarettes - Smokeless tobacco: Never Used Comment: Quit cigarettes 11-16-16 now smoking 4 pipes as of 04-18-17 - Alcohol use No - Drug use: No - Sexual activity: Not Currently ALLERGIES Allergen Reactions - Altaseptic Unknown - Brilinta [Ticagrelo* Unknown - Crestor [Rosuvastat* Myalgia - Hctz [Amiloride-Hyd* Swelling - Moxifloxacin Swelling - Other [place]-3s Unknown brelinta - Ramipril Swelling Other reaction(s): Facial swelling - Simvastatin Myalgia Other reaction(s): Facial swelling - Voltaren [Diclofena* Unknown Review of Systems Constitutional: Positive for chills. Negative for fever. HENT: Negative for congestion and nosebleeds. Respiratory: Positive for shortness of breath. Negative for wheezing. Cardiovascular: Positive for chest pain. Negative for palpitations and leg swelling. Gastrointestinal: Positive for abdominal pain, nausea and vomiting. Genitourinary: Negative for dysuria and hematuria. Musculoskeletal: Negative for neck pain and neck stiffness. Skin: Negative for color change and rash. Neurological: Negative for dizziness and syncope. Psychiatric/Behavioral: Negative for agitation and confusion. Physical Exam BP 168/55 Pulse 77 Temp (Src) 98.1 (Oral) Resp 16 Ht 5' 8 (1.73m) Wt 195 lb (88.5kg) SpO2 97% BMI 29.66 kg/(m2). Physical Exam Constitutional: He is oriented to person, place, and time. He appears well-developed and well-nourished. HENT: Head: Normocephalic and atraumatic. Eyes: Conjunctivae and EOM are normal. Neck: Normal range of motion. Neck supple. Cardiovascular: Normal rate, regular rhythm, normal heart sounds and intact distal pulses. Exam reveals no gallop and no friction rub. No murmur heard. Pulses are equal in all 4 extremities. Pulmonary/Chest: Effort normal and breath sounds normal. No respiratory distress. He has no wheezes. Abdominal: Diffuse abdominal tenderness palpation with guarding, no rebound tenderness, protrusion of ostomy, ostomy is pink and tender to palpation. No purulence, drainage, blood in the ostomy. Musculoskeletal: Normal range of motion. He exhibits no edema. Neurological: He is alert and oriented to person, place, and time. Skin: Skin is warm and dry. Capillary refill takes less than 2 seconds. Psychiatric: He has a normal mood and affect. His behavior is normal. Diagnostic Testing ED Labs Ordered and Reviewed - No data to display Procedures Ultrasound Guided Peripheral Line Access Indication ? Patient requires placement of a peripheral venous catheter for emergent administration of IV fluids and or medications. Several blind peripheral attempts were unsuccessful Procedure in detail ? Using the linear probe covered in a sterile sheath, a short axis views were obtained of the: Cephalic vein ? This vein was completely compressible and was identified as separate from the adjacent non-compressible arterial structure ? Under real-time guidance, the intravenous needle was observed to tent the vein, and then to puncture it ? Still images or video images were saved for this of this exam: Yes Conclusion ? Successful peripheral venous catheterization under ultrasound guidance. This limited imaging study was performed by: Resident only. ED Course / Clinical Impression Clinical Impressions as of Mar 08 1747 Chest pain, unspecified type Pain of upper abdomen Lung nodule MDM / Disposition / Plan 67-year-old male presents emergency Department chief complaint of chest pain and abdominal pain. History of physical performed. Patient with a history of AAA, CABG, colostomy with new onset of severe chest or abdominal pain. Concern at this point is for aortic dissection, ACS and also a protrusion of ostomy. Patient has a history of a AAA has new severe abdominal pain with weakness in his legs concerning for dissection. CTA of the chest abdomen and pelvis has been ordered for rule out dissection, patient will also get cardiac labs including a chest x-ray, troponin and EKG for rule out ACS. Patient has history of CABG due to prior PA. Basic labs will be ordered. Lactic will be ordered secondary to possibility of ostomy protrusion with necrosis. Patient's urinalysis CMP, CBC, lipase, troponin, lipase all unremarkable. Chest x-ray shows no acute radiographic abnormality. CTA of chest abdomen and pelvis unremarkable for any acute dissection, does show a lung nodule stable from prior study, discussed this finding with him and advised pt he needs to follow up with his PCP for further imaging. CT also shows parastomal hernia with small bowel loop. Spoke with surgery regarding the protrusion of the stoma with finding of parastomal hernia who will come and evaluate the patient. Spoke with surgery who is seen the patient who does not feel that there is anything for them to do at this point as the stoma is easily reducible and patient is supposed to have a follow-up with his colorectal physician for possible reversal. Because the patient's cardiac history with new onset of chest pain is our recommendation that the patient be admitted to the hospital for further cardiac workup. HEART score is a 5 Vitals stable on admission. SIGNATURE: DO Mikhail Resendiz (Res) DO [place] Resident 03/08/188 Parul Santillan MD 03/08/18 1924 ED PROV NOTE Observed: 03/08/2018 Status: COMPLETED Source: [place] 11:35 AM CLINIC OTHER CAMPUS REPOSITORY HNO ID: [id number] Author: Parul Santillan MD Service: Emergency Medicine Author Type: Physician Type: ED Provider Notes Filed: 03/08/2018 6:17 PM Note Text: HPI 67-year-old male with possible history of coronary artery disease who presents today with chief complaint of chest pain and abdominal pain. It started just prior to arrival. It was associated with nausea and diaphoresis. He also has an ostomy that he states prolapsed to just prior to arrival. PE Gen:awake, alert CV:RRR Pulm:diminished at b/l bases Abd:soft, ostomy pink, prolapsed DDX:dissection, PE, ACS ED course and plan EKG shows sinus rhythm w/ PVCs, no ST elevation. Ct dissection study obtained and negative for dissection, does show parastomal hernia. Surgery did eval pt in ED, felt no acute intervention required. Heart score 5, pt will require admission for chest pain. Attending Note I evaluated the patient and personally participated in the nelson components. I agree with the resident's findings and plan as documented and have discussed the case and management of the patient's care with the resident. Signature: Parul Santillan MD Date: 03/08/2018 Time: 11:37 AM Signature: Parul Santillan MD Date: 03/08/2018 Time: 11:35 AM Parul Santillan MD 03/08/181816 EKG Observed: 03/08/2018 Status: F Source: [place] 11:16 AM [facility] OTHER CAMPUS REPOSITORY NAME : MAID CLEANING COOKING,MAXX PID : [id number] : 1950 Gender : Male Race : ORD : Procedure Date : Mar 08 2018 11:16 Edit Date : Mar 08 2018 18:16 Diagnosis:SINUS RHYTHM WITH OCCASIONAL PREMATURE VENTRICULAR COMPLEXES POSSIBLE LEFT ATRIAL ENLARGEMENT POSSIBLE INFERIOR INFARCT , AGE UNDETERMINED ABNORMAL ECG WHEN COMPARED WITH ECG OF 02-FEB-2018 22:24, SIGNIFICANT CHANGES HAVE OCCURRED Confirmed by Parul Santillan ([id number]) on 03/08/2018 6:16:24 PM Ventricular Rate : 78 BPM Atrial Rate : 78 BPM P-R Interval : 172 ms QRS Duration : 110 ms Q-T Interval : 380 ms QTC Calculation(Bezet) : 433 ms P [place] : 44 degrees R [place] : 23 degrees T [place] : 80 degrees Test Reason : Location : 4 : [facility] Overread By : Parul Santillan Editted By : Parul Santillan Referred By : , Acquired by : Farrah Thompson Observed: 02/28/2018 Status: COMPLETED Source: [place] 12:00 AM [facility] [place] REPOSITORY Letter Text February 28, 2018 Maxx Knott [address] [facility] [address] Dear Mr. Knott, The nurses and staff of J7-3 nursing unit at [facility] hope this letter finds you feeling well and progressing in your recovery. It was an honor for us to provide your nursing care. We know that placing our Patients First and maintaining a culture of continuous improvement, each and every day, are essential to the success of our organization. We want to hear from you. If you have any comments, questions or concerns about your hospital stay, please feel free to contact me, Lee Krause RN at [phone] or e-mail [email or web address]. Additionally, you will receive a survey in the mail asking you to rate the care you received while in the hospital. Please take the time to complete and send back the survey. I personally review all the results and would appreciate your feedback. Please consider completing this survey for each individual visit. Thank you in advance for your participation and thank you for choosing the [facility] for your healthcare needs. Sincerely, Lee Krause RN Nurse Director Of Mechanical Engineering J7-3 Cardiology Step-down Unit 12 LEAD ELECTROCARDIOGRAM Observed: 02/22/2018 Status: F Source: [place] 1:05 PM [facility] REPOSITORY [facility] Cardiovascular Services [address] [place] [id number] 12 Lead EKG 02/19/18 0754 MR#: [id number] Acct: [id number] Name: MAXX KNOTT Rep #: [id number] : 1950 67 From: Kassandra Lundberg MD Attending Dr: Status: [facility] Ordering Dr: Hue Peters MD Date: 02/19/18 Location: ED Sex: M C Admitted: Test Reason : CP Blood Pressure : / mmHG Vent. Rate : 091 BPM Atrial Rate : 091 BPM P-R Int : 174 ms QRS Dur : 108 ms QT Int : 326 ms P-R-T Axes : 068 047 023 degrees QTc Int : 400 ms Normal sinus rhythm Possible Left atrial enlargement Nonspecific T wave abnormality Abnormal ECG Confirmed by LAUREEN METCALF, KASSANDRA ([id number]), copy editor LAMAR AHN ([id number]) on 02/22/2018 1:05:12 PM Referred By: FRANCISCO Confirmed By:KASSANDRA LUNDBERG MD 02/22/18 0602 Date Kassandra Lundberg MD CC: [facility]; [facility] Signed PROGRESS Observed: 02/22/2018 Status: COMPLETED Source: [place] 8:19 AM [facility] REPOSITORY HNO ID: [id number] Author: Eligio KingRn) MITCHELL Banks Service: (none) Author Type: Registered Nurse Type: Progress Notes Filed: 02/22/2018 8:23 AM Note Text: PRIMARY CARE COORDINATION DISCHARGE Patient has been identified by name and date of : Yes Patient discharged from Primary Care Coordination: YES Goals met N/A Goals not met Patient engagement has not occurred Patient knowledgeable and confident in contacting Health Care Providers for questions or concerns: Address in Future Encounter Reinforced with patient and/or caregiver that Primary Care Coordination may be reinitiated if a change in status warrants navigation readmission: Address in Future Encounter Discussed with: PCP What was the Focus/Challenges addressed in Care Coordination? Appropriate level of care options - Utilization Disposition: Follow up with PCP Care Team Tab - End: YES Eligio Banks RN CNPTOUTREACH Observed: 02/22/2018 Status: COMPLETED Source: [place] 12:00 AM [facility] REPOSITORY Patient Outreach (INTMMN) MAXX KNOTT ([id number]) 1950 M Date Time Provider Department 02/22/18 ELIGIO BANKS (RN) INTMMN During your visit today, we recorded the following information about you: Eligio Banks RN, RN 02/22/2018 8:23 AM Signed PRIMARY CARE COORDINATION DISCHARGE Patient has been identified by name and date of : Yes Patient discharged from Primary Care Coordination: YES Goals met N/A Goals not met Patient engagement has not occurred Patient knowledgeable and confident in contacting Health Care Providers for questions or concerns: Address in Future Encounter Reinforced with patient and/or caregiver that Primary Care Coordination may be reinitiated if a change in status warrants navigation readmission: Address in Future Encounter Discussed with: PCP What was the Focus/Challenges addressed in Care Coordination? Appropriate level of care options - Utilization Disposition: Follow up with PCP Care Team Tab - End: YES Eligio Banks RN Allergies As of Date: 02/22/2018 Noted Allergy Reaction ALTASEPTIC 12/17/2016 16 - Unknown BRILINTA (TICAGRELOR) 08/09/2017 16 - Unknown CRESTOR (ROSUVASTATIN CALCIUM) 12/17/2016 17 - Myalgia HCTZ (AMILORIDE-HYDROCHLOROTHIAZI*12/17/2016 7 - Swelling MOXIFLOXACIN 7 - Swelling OTHER OMEGA-3S 07/06/2017 16 - Unknown Comments: brelinta RAMIPRIL 12/17/2016 7 - Swelling Comments: Other reaction(s): Facial swelling SIMVASTATIN 12/17/2016 17 - Myalgia Comments: Other reaction(s): Facial swelling VOLTAREN (DICLOFENAC SODIUM) 12/17/2016 16 - Unknown Date Reviewed: 02/08/2018 Reviewed by: Tika Toth) MITCHELL Cordero - Fully Assessed Reason for Visit: Field Specialist- Other [[id number]] Cmt: Discharge from PCC Reason For Visit History Recorded Prescriptions as of 02/22/2018 Sig: RANOLAZINE ER 500 MG TABLET,E* Take 1 tablet by mouth twice * ONDANSETRON HCL 4 MG TABLET Take 4 mg by mouth every 6 ho* B COMPLEX ORAL Take 1 tablet by mouth once d* ASPIRIN 81 MG TABLET,DELAYED * Take 81 mg by mouth once dominik* CYCLOBENZAPRINE 10 MG TABLET Take 1 tablet by mouth at bed* AMLODIPINE 10 MG TABLET Take 10 mg by mouth once dominik* LORATADINE 10 MG CAPSULE Take 1 capsule every day by o* PRAVASTATIN 40 MG TABLET Take 40 mg by mouth daily at * GABAPENTIN 300 MG CAPSULE Take 2 capsules by mouth dominik* METOPROLOL SUCCINATE ER 100 M* Take 1 tablet by mouth once d* QUETIAPINE 200 MG TABLET Take 2 tablets by mouth daily* COMPOUNDED PRESCRIPTION One Piece Ostomy Pouch Item T* COMPOUNDED PRESCRIPTION Paste: Convatec Stomahesive * MULTIVITAMIN AND MINERALS ORAL Take 1 capsule by mouth once * ALBUTEROL SULFATE HFA 90 MCG/* Inhale 2 Puffs as instructed * FLUTICASONE 50 MCG/ACTUATION * Use 1 [place] in the nose once * NITROGLYCERIN 0.4 [address]U* PLACE ONE(1) TABLET UNDER TON* LOSARTAN 100 MG TABLET Take 100 mg by mouth once roddy* FUROSEMIDE 20 MG TABLET Take 40 mg by mouth once dominik* Problem List As Of Date 02/22/2018 Noted Resolved 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 Chest pain [R07.9] INVALID FOR*12/02/2017 Priority: A More... Hypertensive crisis [I16.9] INVALID FOR* Priority: B More... Healthcare maintenance [Z00.00] INVALID FOR* Priority: M More... Malnutrition of mild degree (HCC) [E44.1] INVALID FOR* Priority: L More... CHF exacerbation (HCC) [I50.9] INVALID FOR*12/02/2017 Diverticulitis of sigmoid colon [K57.32] INVALID FOR* Class: Recurrent More... Chronic systolic congestive heart failure (HCC)*INVALID FOR* Priority: J More... CAD (coronary artery disease) [I25.10] INVALID FOR* Priority: K More... Hypertensive heart disease with congestive hear*INVALID FOR* Priority: K Hypocalcemia [E83.51] INVALID FOR*06/19/2017 Hypernatremia [E87.0] INVALID FOR*06/19/2017 Hypokalemia [E87.6] INVALID FOR*06/19/2017 Parastomal hernia without obstruction or gangre*INVALID FOR* Abdominal aortic aneurysm without rupture (HCC)*INVALID FOR* Renal cysts, acquired, bilateral [N28.1] INVALID FOR* Arthritis [M19.90] INVALID FOR* Anxiety disorder [F41.9] INVALID FOR* Essential hypertension [I10] INVALID FOR* More... Nicotine use disorder, F17.2 [F17.200] INVALID FOR* Melena [K92.1] INVALID FOR* Fall [W19.XXXA] INVALID FOR* Abdominal pain [R10.9] INVALID FOR* Peristomal hernia [K46.9] INVALID FOR* Prolapse of intestine [K63.4] INVALID FOR*12/02/2017 Chronic narcotic use [F11.90] INVALID FOR* Chest pain [R07.9] INVALID FOR*12/02/2017 Chest pain [R07.9] INVALID FOR*02/03/2018 Other chest pain [R07.89] INVALID FOR* Priority: A More... Coronary artery disease involving coronary bypa*INVALID FOR* Priority: B More... Colostomy care (HCC) [Z43.3] INVALID FOR* More... Pulmonary nodules [R91.8] INVALID FOR* More... Thyroid nodule [E04.1] INVALID FOR* More... AAA (abdominal aortic aneurysm) without rupture*INVALID FOR* More... Obstructive sleep apnea [G47.33] INVALID FOR* More... Hyperlipidemia [E78.5] INVALID FOR* More... Encounter Status:Closed by ELIGIO BANKS on 02/22/18 EMERGENCY DEPARTMENT Observed: 02/19/2018 Status: F Source: [place] SUMMARY 4:51 PM [facility] REPOSITORY [facility] Medical Records Department [address] [place] [address] Emergency Department Summary 02/19/18 0932 MR#: [id number] Acct: [id number] Name: MAXX KNOTT Rep #: [id number] : 1950 67 From: Hue Peters MD PCP: [place] [place] Status: DEP ER - ER Visit Summary Date of Service: 02/19/18 Chief Complaint: Chest pain abdominal pain History of Present Illness: The patient is a 67 M presenting for evaluation secondary to chest pain and abdominal pain. Patient has a underlying history of coronary artery disease with PCI performed in April. Patient states that about 30 minutes ago he had a sudden onset of chest pain. Patient reports that it is a continuous sharp severe chest pain that that has no exacerbating relieving factors and associated with nausea and dyspnea. Patient states that also around the same time he had some bulging from his stoma. He has a history of a colostomy secondary to diverticulitis that was placed about a year and a half ago. Patient reports to me that this was done in [place], but chart review says that this was done at the [facility]. Patient states that he has does have pain around the stoma and he has had to have this reduced in the past. Chart review shows that the patient has reportedly been scheduled for a stomal revision in the past, but does not appear that he has yet to receive this. Physical Examination: Vital signs notable for hypertension 185/63. Well-nourished male no acute distress. Head normocephalic. Moist mucous membranes. Neck supple no JVD. Heart regular rate and rhythm no murmurs large midline chest scar noted well-healed respirations nondistressed lungs clear. Abdomen was soft throughout the quadrants, but the patient's stoma shows a large stomal hernia that is tender to palpation, difficult to reduce, but pink and not dusky with peristaltic movements noted on visual inspection. Peripheral pulses are 2+ and symmetric. Remainder physical otherwise unremarkable. Test Results: EKG demonstrates sinus rhythm at [address] segments nonspecific T wave changes and no evidence of changes from November of this year. Chest x-ray shows chronic changes. Abdominal x-ray shows stool surrounding the patient's stoma. CBC chemistry and troponin are negative. Emergency Department Course and Treatment: Patient presented with chest pain as well as a stomal hernia. Patient's chest pain was addressed as noted above he was given aspirin morphine nitroglycerin. He was continually asking for additional doses of morphine. I discussed patient's case with Dr. North, who recommended that sugar be placed on the stoma and it be attempted for manual reduction. I did perform this, was able to get somewhat of a reduction but the stoma did again begin to protrude. It still maintains peristaltic movement and continues to be pink. Patient was observed in the emergency department for 3-1/2 hours. A delta troponin was obtained and was found to be negative. I reviewed patient's records, he has multiple similar prior presentations and seems to have somewhat of a drug-seeking pattern. Patient was placed in supine position, and repeat evaluation showed improvement of his stomal hernia with continued good perfusion. He also has active drainage from it. I do not believe there is any evidence of obstruction. I do not believe the patient requires admission for revision, and also does not seem to require admission for his chest pain. [facility] Disposition: Discharge Impression: 1. Chest pain 2. Acute on chronic stomal herniation This note was generated with [employer] dictation software. It may contain incorrect words, spelling, and punctuation that were not noted in review of the chart prior to signing ED Disposition - Plan for ED Patient: Disposition: Home or Assisted Living Chief Complaint: Chest Pain Diagnosis: Chest pain, Hernia Instructions: What Is a Hernia? Referrals: [facility] [Primary Care Provider] - As soon as possible What to do if you have Problems For any increased pain, shortness of breath, bleeding, nausea or vomiting, chest pain, or any unexpected problems, contact your Primary Care Provider. Call [facility] ([phone]) or report to the closest Emergency Room. Call 911 if necessary. 02/19/18 1651 <Electronically signed by Hue Peters MD> Date Hue Peters MD Cosigner Signature (If Indicated): Date CC: [facility] TROPONIN-I Collected: 02/19/2018 Status: F Source: [place] 11:10 AM [facility] REPOSITORY Order Comment: 'TROP' Serial specimen #1, #2 or #3: 2 TYPE CODE TESTS RESULT OUT OF RANGE REFERENCE UNITS LAB L501.4010 <0.045 ng/mL Normal < 0.015 TROPONIN-I Result Comment: TROPONIN-I EXPECTED VALUES <0.045 Negative 0.045 - 0.590 Consistent with Cardiac Damage > OR = 0.600 Critical Value Not every elevated troponin is indicative of PA. These values should be used with clinical judgement in examining the patient's clinical picture for diagnosis. To establish a diagnosis of PA versus myocardial injury, there must be a demonstrated rise and/or fall in the troponin values, in addition to ischemic symptoms, EKG changes, new regional wall motion abnormality, and/or angiographical evidence. PLEASE NOTE: REFERENCE RANGES EDITED 17 Performed By: #### L501.4010 #### [facility] Laboratory [address] [place], [address] ABDOMEN SINGLE VIEW Observed: 02/19/2018 Status: F Source: [place] (PORTABLE) 8:16 AM [facility] REPOSITORY [facility] Imaging Services [address] [place] [address] Abdomen Single View (Portable) MR#: [id number] Acct: [id number] Name: MAXX KNOTT Rep #: [id number] : 1950 M 67 From: Franki Baker MD PCP: [place] [place] Status: REG ER Study: Abdomen Single View (Portable) Date of Exam: 02/19/18 Exam# [id number] Ordering Dr: Hue Peters MD STUDY: X-RAY - ABDOMEN/PELVIS REASON FOR EXAM: Male, 67 years old. Colostomy pain. TECHNIQUE: Single AP view of the abdomen / pelvis. COMPARISON: Comparison is made with prior study dated October 20, 2017. FINDINGS: A colostomy is seen in the right midabdomen. A large amount of fecal material is seen at the colostomy site. There is an unremarkable bowel gas pattern. The visualized liver, spleen and kidneys are grossly normal in size and morphology. Normal soft tissue structures. There are diffuse degenerative changes of the visualized lumbar spine. RAD/Abdomen Single View (Portable) IMPRESSION: A large amount of fecal material is seen at the colostomy site. Electronically Signed: Franki aBker MD at 8:58 EDT Tel [phone], Service support , CC: [facility]; Hue Peters Prep Room Supervisor: Signed CHEST 1 VIEW Observed: 02/19/2018 Status: F Source: [place] ([place]) 8:13 AM [facility] REPOSITORY [facility] Imaging Services [address] [place] [address] Chest 1 View (Portable) MR#: [id number] Acct: [id number] Name: MAXX KNOTT Rep #: [id number] : 1950 M 67 From: Franki Baker MD PCP: [place] [place] Status: REG ER Study: Chest 1 View (Portable) Date of Exam: 02/19/18 Exam# [id number] Ordering Dr: Hue Peters MD STUDY: X-RAY CHEST REASON FOR EXAM: Male, 67 years old. Chest pain. TECHNIQUE: Single AP portable view of the chest. COMPARISON: Comparison is made with prior study dated December 17, 2017. FINDINGS: EKG electrodes are seen. Findings suggestive of a focal eventration of the left hemidiaphragm. This is unchanged. Stable mild increased markings at the left lung base. There is no demonstrated pleural abnormality. Sternal cerclage wires and vascular clips are present from a prior sternotomy and coronary artery bypass graft procedure (CABG). A left-sided dual-chamber pacemaker is seen. Normal mediastinum and irene. Normal visualized pulmonary arteries. There is atherosclerotic calcification of the aortic arch with tortuosity. There are diffuse degenerative changes of the visualized thoracic spine. Normal visualized ribs, clavicles, and shoulders. There is no demonstrated abnormality of the visualized soft tissue structures of the upper abdomen. RAD/Chest 1 View (Portable) IMPRESSION: Focal eventration of the left hemidiaphragm. There has been no change. Electronically Signed: Franki Baker MD at 8:57 EDT Tel [phone], Service support , CC: [facility]; Hue Peters Prep Room Supervisor: Signed CBC W/DIFF, AUTOMATED Collected: 02/19/2018 Status: F Source: [place] 8:05 AM [facility] HOSPITAL REPOSITORY TYPE CODE TESTS RESULT OUT OF RANGE REFERENCE UNITS LAB L100.1000 4.4-11.0 K/mm3 Normal WBC 9.0 LAB L100.1200 4.6-6.2 M/mm3 Low RBC 4.58 LAB L100.1300 13.0-16.5 g/dl Normal HGB 14.7 LAB L100.1400 40-54 % Normal HCT 43.2 LAB L100.1500 80-94 fL High MCV 94.3 LAB L100.1600 27.0-32.0 pg High MCH 32.1 LAB L100.1700 32-36 g/gl Normal MCHC 34.0 LAB L100.1810 11.6-14.6 % Normal RDW CV 14.3 LAB L100.1820 35.1-43.9 fl High RDW SD 47.7 LAB L100.1900 150-450 K/mm3 Normal PLT 345 LAB L100.2000 6.2-12.0 fl Normal MPV 10.3 LAB L100.2100 47-70 % High NEUT% 75.3 LAB L100.2200 19-41 % Low LY% 17.7 LAB L100.2300 0-10 % Normal MONO% 4.8 LAB L100.2400 0-5 % Normal EO% 1.8 LAB L100.2500 0-1 % Normal BASO% 0.3 LAB L100.2550 0.0-0.9 % Normal IM GRAN % 0.100 Result Comment: IG% - Immature Granulocytes (promyelocytes, myelocytes and metamyelocytes) > 1% indicates that a LEFT SHIFT is Present. LAB L100.2620 2.0-7.7 X10 3/uL Normal Absolute Neut 6.8 LAB L100.2720 0.83-4.51 X10 3/ul Normal Absolute Lymph 1.59 Performed By: #### L100.0100 #### [facility] Laboratory [address] [place], [place] [address]all [facility]. [place], [place], [address] BASIC METABOLIC Collected: 02/19/2018 Status: F Source: [place] PROFILE (BMP) 8:05 AM [facility] REPOSITORY TYPE CODE TESTS RESULT OUT OF RANGE REFERENCE UNITS LAB L501.0100 74-106 mg/dL High GLU 171 Result Comment: Fasting Glucose result greater than or equal to 126 mg/dL suggests DIABETES MELLITUS per A.D.A. criteria. Please note revised GLUCOSE reference range effective 2017. LAB L501.1000 7-18 mg/dL Normal BUN 11 LAB L501.1100 0.70-1.30 mg/dL Normal CREAT,SERUM 1.06 Result Comment: The validity of the calculated GFR AND GFRAA in patients over 70 years has not been determined. Clinical correlation is essential. LAB L501.1110 >60 mL/min Normal EST GFR 74 Result Comment: Non- GFR Calc LAB L501.1115 >60 mL/min Normal EST GFR - AA 90 Result Comment: GFR Calc LAB L501.1255 ml/min Normal Estimated CRCL 68.55 LAB L501.1300 10-20 RATIO Normal BUN/CRE 10.4 LAB L501.2200 8.5-10 mg/dL Normal .1 CA 9.6 LAB L501.5300 136-14 mmol/L Normal 5 NA 139 LAB L501.5600 3.5-5. mmol/L Normal 1 K 3.9 LAB L501.5900 98-107 mmol/L Normal CL 102 LAB L501.6100 21.0-3 mmol/L Normal 2.0 CO2 30.0 LAB L501.6200 5-15 Normal GAP 7 Performed By: #### L500.2500, L501.4010 #### [facility] [address] [facility] [place], [address] TROPONIN-I Collected: 02/19/2018 Status: F Source: [place] 8:05 AM [facility] REPOSITORY TYPE CODE TESTS RESULT OUT OF RANGE REFERENCE UNITS LAB L501.4010 <0.045 ng/mL Normal < 0.015 TROPONIN-I Result Comment: TROPONIN-I EXPECTED VALUES <0.045 Negative 0.045 - 0.590 Consistent with Cardiac Damage > OR = 0.600 Critical Value Not every elevated troponin is indicative of PA. These values should be used with clinical judgement in examining the patient's clinical picture for diagnosis. To establish a diagnosis of PA versus myocardial injury, there must be a demonstrated rise and/or fall in the troponin values, in addition to ischemic symptoms, EKG changes, new regional wall motion abnormality, and/or angiographical evidence. PLEASE NOTE: REFERENCE RANGES EDITED 17 Performed By: #### L500.2500, L501.4010 #### [facility] [address] [facility] [place], [address] PROGRESS Observed: 02/14/2018 Status: COMPLETED Source: [place] 4:54 PM [facility] REPOSITORY HNO ID: [id number] Author: Eligio Toth) MITCHELL Banks Service: (none) Author Type: Registered Nurse Type: Progress Notes Filed: 02/14/2018 4:55 PM Note Text: Unable to reach patient at this time, VM box is full. Eligio Banks RN PROGRESS Observed: 02/13/2018 Status: COMPLETED Source: [place] 10:19 AM [facility] REPOSITORY HNO ID: [id number] Author: Eligio KingRn) MITCHELL Banks Service: (none) Author Type: Registered Nurse Type: Progress Notes Filed: 02/13/2018 10:19 AM Note Text: Unable to reach patient at this time, VM box is full. Will try again later as time permits. Eligio Banks RN PROGRESS Observed: 02/13/2018 Status: COMPLETED Source: [place] 10:06 AM [facility] REPOSITORY HNO ID: [id number] Author: Eligio KingRn) MITCHELL Banks Service: (none) Author Type: Registered Nurse Type: Progress Notes Filed: 02/14/2018 4:55 PM Note Text: TRANSITION CARE MANAGEMENT (TCM) INITIAL CONTACT Provider Action/FYI: Unable to reach patient x2. VM box is full. NEEDS INTM follow up. TRANSITION CARE MANAGEMENT: Date of Outreach: 02/14/2018 02/13/2018 Outreach Attempt 1: - Contact Not Made Outreach Attempt 2: Contact Not Made - Date of Discharge - 02/12/2018 Some recent data might be hidden SUMMARY: -Pt discharged from [facility] on 02/12/18. -Follow up appointment: NEEDS. -Medication review: NEEDS. -Admitted for: Chest Pain CONCERNS: Unable to reach patient after multiple attempts. Letter sent 02/01/18. NEW MEDICATIONS: oxyCODONE-acetaminophen (PERCOCET) 5-325 mg tablet Take 1-2 tablets by mouth every 6 hours as needed for up to 7 days. Print RX, Disp-10 tablet, R-0 Dx: 1. Chest pain, unspecified type 2. Colostomy care (HCC) MEDS HELD/DISCONTINUED: oxyCODONE IR (ROXICODONE) 10 mg tab BRIEF HOSPITAL COURSE: Medical management of his chest pain was continued. He remained on his sandeep meds. ? Peak CK/Troponin 38/<0.010. Enzymes remained negative aand ekg was unchanged. He contineud to have mild mid chest discomfort. He remained over weekend, PET stress showed no ichmeia small < 10% fixed defect in LC and RCA. Echo F 45%. ? Pt was re-assured that his chest pain was not heat related. ? The patient remained HD stable. The patient was discharged in stable condition ? Consults: None ? Major Procedure or Operation: ? Echo 02-09-2018 CONCLUSIONS: - Technically difficult exam due to body habitus. - Exam indication: Evaluation of ventricular function following ACS - The left ventricle is mildly dilated. Left ventricular systolic function is mildly decreased. EF = 45 ? 5% (visual est.) Grade I left ventricular diastolic dysfunction. Abnormal global strain -14.1% - The right ventricle is normal in size. Right ventricular systolic function is normal. - The left atrial cavity is mildly dilated. - Exam was compared with the prior echocardiographic exam performed on 04/02/2017. No significant change ? Pet stress 02-11-2018 CONCLUSIONS: ?1. PET Perfusion Study: Abnormal. ?2. No evidence of ischemia. ?3. There is a small (<10%) fixed perfusion defect in the LCX territory. ?4. There is a small (<10%) fixed perfusion defect in the RCA territory. ?5. Left ventricle is moderately dilated. The left ventricle systolic function is mildly decreased. ?6. Right ventricle is normal in size. The right ventricle systolic function is normal. ?7. Functional capacity N/A (pharmacological). ?8. This is an intermediate risk scan. ?Gated Stress IR:3D:SC:CTAC Gated Rest IR:3D:SC:CTAC ?LVEF % 42 ? 40 ? ? Other Procedures, Testing AND Radiology: None ? Patient Condition at Discharge: Improved Disposition: Home/Self Care Electronically SIGNED by Licensed Independent Practitioner: Lisa Mensah PA-C/Victor Hugo Chauhan PA-C ? MAIA Pierce, courtroom clerkField Specialist [facility] [place] [facility] [phone] [facility] Observed: 02/13/2018 Status: COMPLETED Source: [place] 12:00 AM [facility] REPOSITORY Patient Outreach (INTMMN) MAXX KNOTT ([id number]) 1950 M Date Time Provider Department 02/13/18 ELIGIO BANKS (RN) INTMMN During your visit today, we recorded the following information about you: Eligio Banks, RN, RN 02/14/2018 4:55 PM Signed TRANSITION CARE MANAGEMENT (TCM) INITIAL CONTACT Provider Action/FYI: Unable to reach patient x2. VM box is full. NEEDS INTM follow up. TRANSITION CARE MANAGEMENT: Date of Outreach: 02/14/2018 02/13/2018 Outreach Attempt 1: - Contact Not Made Outreach Attempt 2: Contact Not Made - Date of Discharge - 02/12/2018 Some recent data might be hidden SUMMARY: -Pt discharged from [facility] on 02/12/18. -Follow up appointment: NEEDS. -Medication review: NEEDS. -Admitted for: Chest Pain CONCERNS: Unable to reach patient after multiple attempts. Letter sent 02/01/18. NEW MEDICATIONS: oxyCODONE-acetaminophen (PERCOCET) 5-325 mg tablet Take 1-2 tablets by mouth every 6 hours as needed for up to 7 days. Print RX, Disp-10 tablet, R-0 Dx: 1. Chest pain, unspecified type 2. Colostomy care ([facility]) MEDS HELD/DISCONTINUED: oxyCODONE IR (ROXICODONE) 10 mg tab BRIEF HOSPITAL COURSE: Medical management of his chest pain was continued. He remained on his sandeep meds. ? Peak CK/Troponin 38/<0.010. Enzymes remained negative aand ekg was unchanged. He contineud to have mild mid chest discomfort. He remained over weekend, PET stress showed no ichmeia small < 10% fixed defect in LC and RCA. Echo F 45%. ? Pt was re-assured that his chest pain was not heat related. ? The patient remained HD stable. The patient was discharged in stable condition ? Consults: None ? Major Procedure or Operation: ? Echo 02-09-2018 CONCLUSIONS: - Technically difficult exam due to body habitus. - Exam indication: Evaluation of ventricular function following ACS - The left ventricle is mildly dilated. Left ventricular systolic function is mildly decreased. EF = 45 ? 5% (visual est.) Grade I left ventricular diastolic dysfunction. Abnormal global strain -14.1% - The right ventricle is normal in size. Right ventricular systolic function is normal. - The left atrial cavity is mildly dilated. - Exam was compared with the prior echocardiographic exam performed on 04/02/2017. No significant change ? Pet stress 02-11-2018 CONCLUSIONS: ?1. PET Perfusion Study: Abnormal. ?2. No evidence of ischemia. ?3. There is a small (<10%) fixed perfusion defect in the LCX territory. ?4. There is a small (<10%) fixed perfusion defect in the RCA territory. ?5. Left ventricle is moderately dilated. The left ventricle systolic function is mildly decreased. ?6. Right ventricle is normal in size. The right ventricle systolic function is normal. ?7. Functional capacity N/A (pharmacological). ?8. This is an intermediate risk scan. ?Gated Stress IR:3D:SC:CTAC Gated Rest IR:3D:SC:CTAC ?LVEF % 42 ? 40 ? ? Other Procedures, Testing AND Radiology: None ? Patient Condition at Discharge: Improved Disposition: Home/Self Care Electronically SIGNED by Licensed Independent Practitioner: Lisa Mensah PA-C/Victor Hugo Chauhan PA-C ? MAIA Pierce, courtroom clerkField Specialist [facility] [place] [facility] [phone] Eligio Banks, RN, RN 02/13/2018 10:19 AM Signed Unable to reach patient at this time, VM box is full. Will try again later as time permits. Eligio Banks RN Eligio Banks, RN, RN 02/14/2018 4:55 PM Signed Unable to reach patient at this time, VM box is full. Eligio Banks RN Allergies As of Date: 02/13/2018 Noted Allergy Reaction ALTASEPTIC 12/17/2016 16 - Unknown BRILINTA (TICAGRELOR) 08/09/2017 16 - Unknown CRESTOR (ROSUVASTATIN CALCIUM) 12/17/2016 17 - Myalgia HCTZ (AMILORIDE-HYDROCHLOROTHIAZI*12/17/2016 7 - Swelling MOXIFLOXACIN 7 - Swelling OTHER OMEGA-3S 07/06/2017 16 - Unknown Comments: brelinta RAMIPRIL 12/17/2016 7 - Swelling Comments: Other reaction(s): Facial swelling SIMVASTATIN 12/17/2016 17 - Myalgia Comments: Other reaction(s): Facial swelling VOLTAREN (DICLOFENAC SODIUM) 12/17/2016 16 - Unknown Date Reviewed: 02/08/2018 Reviewed by: Tika KingRn) MITCHELL Cordero - Fully Assessed Reason for Visit: Field Specialist Hospital Follow Up [4624] Cmt: TCM Prescriptions as of 02/13/2018 Sig: OXYCODONE-ACETAMINOPHEN 5 MG-* Take 1-2 tablets by mouth antwan* RANOLAZINE ER 500 MG TABLET,E* Take 1 tablet by mouth twice * ONDANSETRON HCL 4 MG TABLET Take 4 mg by mouth every 6 ho* B COMPLEX ORAL Take 1 tablet by mouth once d* ASPIRIN 81 MG TABLET,DELAYED * Take 81 mg by mouth once dominik* CYCLOBENZAPRINE 10 MG TABLET Take 1 tablet by mouth at bed* AMLODIPINE 10 MG TABLET Take 10 mg by mouth once dominik* LORATADINE 10 MG CAPSULE Take 1 capsule every day by o* PRAVASTATIN 40 MG TABLET Take 40 mg by mouth daily at * GABAPENTIN 300 MG CAPSULE Take 2 capsules by mouth dominik* METOPROLOL SUCCINATE ER 100 M* Take 1 tablet by mouth once d* QUETIAPINE 200 MG TABLET Take 2 tablets by mouth daily* COMPOUNDED PRESCRIPTION One Piece Ostomy Pouch Item T* COMPOUNDED PRESCRIPTION Paste: Convatec Stomahesive * MULTIVITAMIN AND MINERALS ORAL Take 1 capsule by mouth once * ALBUTEROL SULFATE HFA 90 MCG/* Inhale 2 Puffs as instructed * FLUTICASONE 50 MCG/ACTUATION * Use 1 [place] in the nose once * NITROGLYCERIN 0.4 [address]U* PLACE ONE(1) TABLET UNDER TON* LOSARTAN 100 MG TABLET Take 100 mg by mouth once roddy* FUROSEMIDE 20 MG TABLET Take 40 mg by mouth once dominik* Problem List As Of Date 02/13/2018 Noted Resolved 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 Chest pain [R07.9] INVALID FOR*12/02/2017 Priority: A More... Hypertensive crisis [I16.9] INVALID FOR* Priority: B More... Healthcare maintenance [Z00.00] INVALID FOR* Priority: M More... Malnutrition of mild degree (HCC) [E44.1] INVALID FOR* Priority: L More... CHF exacerbation (HCC) [I50.9] INVALID FOR*12/02/2017 Diverticulitis of sigmoid colon [K57.32] INVALID FOR* Class: Recurrent More... Chronic systolic congestive heart failure (HCC)*INVALID FOR* Priority: J More... CAD (coronary artery disease) [I25.10] INVALID FOR* Priority: K More... Hypertensive heart disease with congestive hear*INVALID FOR* Priority: K Hypocalcemia [E83.51] INVALID FOR*06/19/2017 Hypernatremia [E87.0] INVALID FOR*06/19/2017 Hypokalemia [E87.6] INVALID FOR*06/19/2017 Parastomal hernia without obstruction or gangre*INVALID FOR* Abdominal aortic aneurysm without rupture (HCC)*INVALID FOR* Renal cysts, acquired, bilateral [N28.1] INVALID FOR* Arthritis [M19.90] INVALID FOR* Anxiety disorder [F41.9] INVALID FOR* Essential hypertension [I10] INVALID FOR* More... Nicotine use disorder, F17.2 [F17.200] INVALID FOR* Melena [K92.1] INVALID FOR* Fall [W19.XXXA] INVALID FOR* Abdominal pain [R10.9] INVALID FOR* Peristomal hernia [K46.9] INVALID FOR* Prolapse of intestine [K63.4] INVALID FOR*12/02/2017 Chronic narcotic use [F11.90] INVALID FOR* Chest pain [R07.9] INVALID FOR*12/02/2017 Chest pain [R07.9] INVALID FOR*02/03/2018 Other chest pain [R07.89] INVALID FOR* Priority: A More... Coronary artery disease involving coronary bypa*INVALID FOR* Priority: B More... Colostomy care (HCC) [Z43.3] INVALID FOR* More... Pulmonary nodules [R91.8] INVALID FOR* More... Thyroid nodule [E04.1] INVALID FOR* More... AAA (abdominal aortic aneurysm) without rupture*INVALID FOR* More... Obstructive sleep apnea [G47.33] INVALID FOR* More... Hyperlipidemia [E78.5] INVALID FOR* More... Follow-up and Disposition History Recorded Encounter Status:Closed by ELIGIO BANKS on 02/14/18 CASE MANAGEM Observed: 02/12/2018 Status: COMPLETED Source: [place] 8:59 AM [facility] REPOSITORY HNO ID: [id number] Author: Cruzito (Rn) MITCHELL Hutchison Service: Case Management Author Type: Registered Nurse Type: Care Mgt Progress Note Filed: 02/12/2018 9:02 AM Note Text: CARE MANAGEMENT DISCHARGE NOTE SERVICE DATE: 02/12/2018 SERVICE TIME: 8:59 AM LOS: 5 days Needs Prior to Discharge: None Plan of care discussed with primary team ready for discharge home today with no skilled needs. Patient lives with brother in an apartment. Has assistive DME for ambulation that he use as needed. Denies the use of Home O2. Wears CPAP at night. Has transportation upon discharge. Ready for discharge from CM standpoint. ? SIGNATURE: Cruzito Hutchison RN PATIENT NAME: Maxx Knott DATE: February 12, 2018 TIME: 8:59 AM PAGER/CONTACT #: [phone] PROGRESS Observed: 02/12/2018 Status: COMPLETED Source: [place] 8:36 AM [facility] REPOSITORY HNO ID: [id number] Author: Victor Hugo Chauhan (Pa) Service: Cardiovascular Medicine Author Type: Physician Tool Grinder Operator Surface Type: Progress Notes Filed: 02/12/2018 8:43 AM Note Text: [facility] CARDI[facility]ULAR [facility]ICINE PROGRESS NOTE (Template ID [id number]) Maxx Knott [id number] PRIMARY SERVICE: Hvi Card Intervention, Dr Bunn [facility] DAY: # 5 INTERVAL HISTORY Pt saw Dr Bunn last night after Pet stress. There was no ischemia. Pt re-assured that his pain is not due to his heart, ok to use tylenol, alleve He will follow up with local fabric stretcher or local straightening machine operator. Pt has some pain with the colostomy, asked for a cript for percocet. PHYSICAL EXAM BP 144/63 Pulse 70 Temp (!) 35.7 ?C (96.3 ?F) (Oral) Resp 20 Ht 172.7 cm (5' 8) Wt 87.4 kg (192 lb 9.6 oz) SpO2 97% BMI 29.28 kg/m? Intake/Output Summary (Last 24 hours) at 02/12/18 0837 Last data filed at 02/12/18 0600 Gross per 24 hour Intake 240 ml Output 1800 ml Net -1560 ml General Appearance: Well developed and No distress HEENT: EOM's intact, JVD - no and Bruits - no Lungs: Decreased breath sounds Heart: Regular rate AND rhythm, no Murmur , S1, S2 normal, S4 present, no Edema and Vascular: Pulses - +2 intact Abdomen: Soft, Round, Non-tender, Bowel sounds present, Bruits - no and Organomegaly - no Skin: Warm and Dry Musculoskeletal: No deformities Neurologic/Psychiatric: Oriented to time, place AND person MEDICATIONS Current hospital medications: sodium chloride 0.65 % 2 [place] (AYR, OCEAN) 2 [place] EACH NOSTRIL PRN QUEtiapine 100 mg tab(s) (SEROquel) 100 mg ORAL AT BEDTIME oxyCODONE-acetaminophen 5-325 mg 1-2 tablet (PERCOCET) 1-2 tablet ORAL q 6 H PRN amLODIPine 10 mg tab(s) (NORVASC) 10 mg ORAL AT BEDTIME metoprolol succinate ER 100 mg tab(s) (TOPROL XL) 100 mg ORAL DAILY nitroglycerin sublingual 0.4 mg tab(s) (NITROQUICK) 0.4 mg SUBLINGUAL q 5 MIN PRN ranolazine ER 500 mg tab(s) (RANEXA) 500 mg ORAL BID gabapentin 600 mg cap(s) (NEURONTIN) 600 mg ORAL AT BEDTIME ondansetron 4 mg tab(s) (ZOFRAN) 4 mg ORAL q 6 H PRN pravastatin 40 mg tab(s) (PRAVACHOL) 40 mg ORAL AT BEDTIME losartan 100 mg tab(s) (COZAAR) 100 mg ORAL DAILY albuterol HFA 90 mcg/actuation 2 Puff (PROVENTIL HFA, VENTOLIN HFA) 2 Puff INHALATION q 4 H PRN aspirin, enteric coated 81 mg tab(s) 81 mg ORAL DAILY docusate sodium 100 mg cap(s) (COLACE) 100 mg ORAL BID PRN perflutren lipid microspheres 1.1 mg/mL 1.3 mL injection ([email or web address]) 1.3 mL INTRAVENOUS DIRECTED PRN heparin 5,000 Units injection 5,000 Units SUBCUTANEOUS q 12 H DATA Recent Labs 02/12/18 0526 02/11/18 0641 02/10/18 0509 WBC 7.75 7.14 7.19 HB 14.7 14.4 14.1 HCT 44.9 43.7 42.8 PLT 267 256 240 Recent Labs 02/12/18 0526 02/11/18 0641 02/10/18 0509 NA 140 139 139 K 4.7 4.2 Unable to assay. Specimen significantly hemolyzed. CO2 24 25 22 BUN 29* 22 24 CREAT 1.26* 1.16 1.19 GLUC 112* 105* 94 MG 2.3 2.0 2.0 IMAGING ASSESSMENT AND PLAN This is a 66 year old male with PMH of CAD s/p CABG x 3 in 2005 (RHODES to LAD, SVg to RCA and SVg to LCx); LHC in 11/2015 revealed occluded vein graft to LCx s/p stenting; -ve lexiscan in 05/2016, CHFrEF (EF 45%), h/o paroxysmal VT and ??Afib, s/p recent PPM placement (unclear if he has an ICD), and diverticulitis c/b perforation (July 2016) s/p Chad with loop colostomy with h/o multiple ED visits for stoma prolapse (was advised by [facility]ORS to f/u in clinic for stoma closure but did not f/u). The patient was in his usual state of health until approximately 8am this morning when he noted that he bumped his stomas into the railing of his bed at home. ?He noted that his stoma prolapsed and he developed a sharp 8/10 pain around the stoma and noted the stoma filling with bowel contents. A/w nausea. ?No blood or melanotic stool in the stoma bag. After the stoma prolapsed he also noted a milder 5/10 aching pain in substernal area of his chest. ?He notes that manipulating the stoma makes his chest pain worse. ?He denies any change with exertion, breathing, eating, or changes in position. ?Of note on arrival to he ED his BP was 201/87 and on repeat was 178/93. On arrival to the ED an ECG was checked showed normal sinus rhythm with occasional PVCs and poor R wave progression, unchanged from his prior ECG on 03/03/17. ?CK-MB was 3.1 ?Troponin T was 0.026 and high sensitivity troponin was 53 and 1 hour repeat was 55. Cards was consulted --> enzymes elevation thought to be likely 2/2 demand ischemia in the setting of hypertensive crisis and poorly controlled pain. Of note, pt has had repeated hospitalizations for cp, most recently 03/20/17, when PE and ACS were ruled out. Most of pts cardiology care has been at . ? [facility] was consulted in the ED, the prolapse was reduced but recurred, recommended surgery to be scheduled as outpatient. ? Problem Other Chest Pain Hx: POA A: -- High sensitivity troponin 20 -->19. P:See CAD plan Coronary Artery Disease Involving Coronary Bypass Graft of [place] Heart Without Angina Pectoris Hx: -- CABG x3 (L:LAD, V:OM, V:RCA) 2005 at [place] -- Multiple PCIs (Last was GREY to LAD 01/2017 at ) A/P: -- Trend cardiac enzymes CE x3 negative -- Continue aspirin 81 mg daily -- Continue metoprolol succinate 100 mg daily -- Continue Ranexa 500 mg twice daily -- Continue pravastatin 40 mg daily (multiple other statin intolerances). Continues to have constant chest pressure P Pet stress today at 2:30pm No ischemia Dr Bunn saw Pt rec tyelnol alleve for the pain Hyperlipidemia Hx: POA On pravastatin at home A: lipid panel 02/08/18 Total - 170 Triglycerides - 202 HDL - 29 LDL - 101 P: continue pravastatin Colostomy Care (Hcc) Hx:Colostomy 2/2 diverticulitis 07/2016 A/P: General surgery resident successfully reduced prolapsed stoma in ED. -- Continued observation for prolapse or pain Pulmonary Nodules Hx: Recent CT scan with 12 mm right upper lobe pulmonary nodule, and 6 mm left lateral costophrenic nodule. Patient with history of smoking. -- Continued outpatient follow-up Thyroid Nodule Hx:-- 3.2 high protein UA right thyroid nodule A: TSH Date Value Ref Range Status 02/08/2018 1.240 0.400 - 5.500 uU/mL Final P: outpatient follow-up Aaa (Abdominal Aortic Aneurysm) Without Rupture (Hcc) Hx: Stable at 3.2 cm infrarenal on recent CT imaging. A/P: continue outpatient management Obstructive Sleep Apnea Hx: POA On CPAP at home A/P: CPAP in house Essential Hypertension Hx: POA On amlodipine, metoprolol and losartan at home A: BP on admission 168/59 BP has been stable P: monitor BP Continue amlodipine, metoprolol and losartan Case to be discussed with staff Victor Hugo Chauhan PA-C Pager [phone] (please see below for after hours communication) 02/12/2018 8:37 AM Discussed with otf [place] to DC home. Continue present meds, cript for percocet given to Pt. Care Coordination Discharge Management: I personally spent greater than 30 minutes involved in the discharge management of this patient. All medications and potential SE were discussed with the Patient. Victor Hugo Chauhan PA-C 8:43 AM CBC Collected: 02/12/2018 Status: F Source: [place] 5:26 AM [facility] [place] REPOSITORY TYPE CODE TESTS RESULT OUT OF REFERENCE UNITS RANGE LAB WBC 3.70-11.00 k/uL WBC 7.75 LAB RBC 4.20-6.00 m/uL RBC 4.80 LAB HGB 13.0-17.0 g/dL Hemoglobin 14.7 LAB HCT 39.0-51.0 % Hematocrit 44.9 LAB MCV 80.0-100.0 fL MCV 93.5 LAB MCH 26.0-34.0 pG MCH 30.6 LAB MCHC 30.5-36.0 g/dL MCHC 32.7 LAB RDWCV 11.5-15.0 % RDW-CV 14.4 LAB PLTCT 150-400 k/uL Platelet Count 267 LAB MPV 9.0-12.7 fL MPV 10.7 LAB ABSNUC <0.01 k/uL Absolute nRBC <0.01 Performed By: #### CBC, BMP, MG1 #### [facility] [address] [phone] BASIC METABOLIC PANL Collected: 02/12/2018 Status: F Source: [place] 5:26 AM [facility] REPOSITORY TYPE CODE TESTS RESULT OUT OF REFERENCE UNITS RANGE LAB GLU 74-99 mg/dL High Glucose 112 Result Comment: The [place] Diabetes Association (ADA) provides guidance for cutoff values for fasting glucose and random glucose. The ADA defines fasting as no caloric intake for at least 8 hours. Fas ting plasma glucose results between 100 to 125 mg/dL indicate increased risk for diabetes (prediabetes). Fasting plasma glucose results greater than or equal to 126 mg/dL meet the criteria for diagnosis of diabetes. In the absence of unequivocal hyperglycemia, results should be confirmed by repeat testing. In a patient with classic symptoms of hyperglycemia or hyperglycemic crisis, random plasma glucose results greater than or equal to 200 mg/dL meet the criteria for diagnosis of diabetes. Reference: Standards of Medical Care in Diabetes 2016, [place] Diabetes Association. Diabetes Care. 2016.39(Suppl 1). LAB BUN 9-24 mg/dL BUN High 29 LAB CRET 0.73-1.22 mg/dL Creatinine High 1.26 LAB NA 136-144 mmol/L Sodium 140 LAB K 3.7-5.1 mmol/L Potassium 4.7 LAB CL 97-105 mmol/L Chloride 100 LAB CO2 22-30 mmol/L CO2 24 LAB AGAP 9-18 mmol/L Anion Gap 16 LAB CA 8.5-10.2 mg/dL Calcium, Total 9.9 LAB GFRAA eGFR- Amer. >60 LAB GFRNAA . eGFR-All Other Races 57 Result Comment: eGFR (Estimated GFR) Units of measure: mL/min/1.73 meters squared eGFR is derived from the reexpressed MDRD Study equation using the following parameters: serum creatinine, age, gender and race. The creatinine assay has been calibrated to be traceable to IDMS. An eGFR <60 mL/min/1.73m2 for >3 months is consistent with chronic kidney disease. Refer to KDOQI guidelines for clinical interpretation. In patients with unstable renal function, e.g. those with acute kidney injury, the eGFR may not accurately reflect actual GFR. Performed By: #### CBC, BMP, MG1 #### [facility] [address] [place], [place] [address] MAGNESIUM Collected: 02/12/2018 Status: F Source: [place] 5:26 AM [facility] REPOSITORY TYPE CODE TESTS RESULT OUT OF REFERENCE UNITS RANGE LAB MG 1.7-2.3 mg/dL Magnesium 2.3 Performed By: #### CBC, BMP, MG1 #### [facility] [address] [place], [place] [address] NURSING PROG Observed: 02/11/2018 Status: COMPLETED Source: [place] 3:19 PM [facility] REPOSITORY HNO ID: [id number] Author: Brenna Bazan (Rn) MITCHELL Saenz Service: Radiology Author Type: Registered Nurse Type: Nursing Progress Note Filed: 02/11/2018 3:19 PM Note Text: RADIOLOGY SERVICE PROGRESS NOTE SERVICE DATE: 02/11/2018 SERVICE TIME: 3:19 PM PATIENT IDENTITY VERIFICATION COMPLETED USING TWO (2) METHODS: Patient confirmed name and Date of verbally. PATIENT GENDER DATA: male ALLERGIES: Reviewed and unchanged MEDICATIONS REVIEWED BY: Juke Box Servicer PROCEDURE TYPE: NM STRESS: 0.4 mg of Lexiscan was administered IV at 1459 by Brenna Saenz RN. Reversal agent used: None. IV SITE: Inpatient - refer to LDA documentation POST EXAM PIV STATUS: Inpatient see LDA documentation PATIENT DISCHARGED TO: Patient taken to IP transport area for return to RNF/ICU/ED. A Diagnostic radioactive procedure has taken place, with no further precautions necessary other than routine body substance precautions. More information regarding radiation safety can be found using this link: [email or web address] SIGNATURE: Brenna Saenz RN PATIENT NAME: Maxx Knott DATE: February 11, 2018 TIME: 3:19 PM PAGER/CONTACT #: [phone] NM PET CARDIAC PERF Observed: 02/11/2018 Status: F Source: [place] REST/STRESS 3:13 PM [facility] REPOSITORY * * *Final Report* * * DATE OF EXAM: Feb 11 2018 3:13PM [facility] [id number] - NM PET CARDIAC PERF REST/STRESS / PROCEDURE REASON: ACS, possible, negative troponin * * * * Physician Interpretation * * * * PATIENT: Name: MAXX KNOTT Age: 67 years Gender: M CONCLUSIONS: 1. PET Perfusion Study: Abnormal. 2. No evidence of ischemia. 3. There is a small (<10%) fixed perfusion defect in the LCX territory. 4. There is a small (<10%) fixed perfusion defect in the RCA territory. 5. Left ventricle is moderately dilated. The left ventricle systolic function is mildly decreased. 6. Right ventricle is normal in size. The right ventricle systolic function is normal. 7. Functional capacity N/A (pharmacological). 8. This is an intermediate risk scan. Gated Stress IR:3D:SC:CTAC Gated Rest IR:3D:SC:CTAC LVEF % 42 40 Prior Study Comparison Prior nuclear cardiology exam was performed on [07/30/2017]. Similar findings on direct comparison. Nuclear Med Report:Gated Rb-82 Regadenoson Stress PET Study: The patient was injected with Rb-82 at rest, and ECG gated tomographic images were obtained. Approximately 10 minutes later, the patient received 0.4 mg of regadenoson, via rapid IV push, immediately followed by Rb- 82 30 seconds after starting the regadenoson infusion; and ECG gated tomographic images were obtained. See administered doses below. [facility] [place] Date of service: 02/11/2018 2:55:30 PM Indication: Assessment for known CAD and Worsening known CAD: re-evaluation of medically managed patients. Interpreting physician: Gloria Rosenthal MD Patient History: History of coronary heart disease, hypertension, dyslipidemia, Prior smoker and heart failure with hospitalization. Medications currently taking are B-kyra, nitrate, Ca Kyra, ARB, ASA, statins and anticoagulation. Previous Cardiovascular Interventions: Coronary Angiogram (2015) CABG (2006) PCI (2017) BIV pacemaker implant (2017) Height: 172.72 cm BSA: 2.05 m? Weight: 88.00 kg BMI: 29.5 kg/m? Imaging Protocol Limitation Reason Liver Retention, G.I. uptake and scaling artifact. CT Dose-Length Product(DLP): 46.0 mGy*cm. CT Dose Reduction Employed: Yes. Exam Type: Rest Stress Radiopharm: Rb-82 Rb-82 Dosage(mCi): 30 30 Atten Correction: performed performed Stress Agent: Regadenoson 0.4mg Supply provided from [facility] Resting Heart Rate: 75 bpm Resting Blood Press: 161/70 mmHg Image Quality The overall study imaging quality was deemed to be fair. The following technical issues were noted: Liver Retention, G.I. uptake and scaling artifact. FINDINGS: Left Ventricle Wall Motion: Stress IR:3D:SC:CTAC - The entire inferior wall and posterior wall are hypokinetic. All remaining scored segments are normal. Rest IR:3D:SC:CTAC - Gated Stress IR:3D:SC:CTAC - Gated Rest IR:3D:SC:CTAC - Stress IR:3D:SC:CTAC Stress Gated Stress Gated Rest IR:3D:SC:CTAC IR:3D:SC:CTAC IR:3D:SC:CTAC LVEF: 42 % 40 % ED Volume: 192 ml 220 ml ES Volume: 112 ml 132 ml TID: 0.86 Perfusion Findings Stress IR:3D:SC:CTAC - Summed Score=8 There is a moderate perfusion defect in the mid and distal inferior wall and posterior wall. All remaining scored segments show normal perfusion. Rest IR:3D:SC:CTAC - Summed Score=8 There is a moderate perfusion defect in the mid and distal inferior wall and posterior wall. All remaining scored segments show normal perfusion. Stress IR:3D:SC:CTAC Rest IR:3D:SC:CTAC Summed Score=8 Summed Score=8 LEFT VENTRICLE The left ventricle is moderately dilated. Left ventricular systolic function is mildly decreased. Right Ventricle The right ventricle is normal in size. Right ventricle systolic function is normal. Stress Test Findings: The stress test was terminated due to the following: End of Protocol. Peak HR 93 bpm. (61 % MPHR) Peak BP 119 mmHg/58 mmHg Patient experienced no symptoms during stress. Stress ECG normal sinus rhythm and normal ST segment response. Stress complications: none. Positron Emission Chay Test Findings: There is no evidence of ischemia. Final Prep Room Supervisor: DEION Transcribe Date/Time: Feb 11 2018 2:55P Dictated by : GLORIA ROSENTHAL MD This examination was interpreted and the report reviewed and electronically signed by: GLORIA ROSENTHAL MD on Feb 11 2018 3:43PM EST [id number] PLAN OF CARE Observed: 02/11/2018 Status: COMPLETED Source: [place] [address]:36 AM [facility] REPOSITORY HNO ID: [id number] Author: Veronika Bryant (Content Engineer) Service: (none) Author Type: (none) Type: Plan of Care Filed: 02/11/2018 11:36 AM Note Text: AIR TECHNICIAN BEDSIDE DELIVERY SURVEY 1. Patient to use [facility] Bedside Delivery - YES 2. If fax, patient would like us to fax prescriptions to Pharmacy of choice a. Pharmacy: b. Location: c. Phone: 3. Insurance card on file - YES 4. Credit card for payment - N/A No prescriptions yet. Please page [phone] upon discharge. PROGRESS Observed: 02/11/2018 Status: COMPLETED Source: [place] 10:13 AM [facility] REPOSITORY HNO ID: [id number] Author: Victor Hugo Chauhan (Pa) Service: Cardiovascular Medicine Author Type: Physician Tool Grinder Operator Surface Type: Progress Notes Filed: 02/11/2018 4:37 PM Note Text: [facility]ARD[facility]ICINE PROGRESS NOTE (Template ID [id number]) Maxx Knott [id number] PRIMARY SERVICE: Hvi Card Intervention, Dr Bunn [facility] DAY: # 4 INTERVAL HISTORY Pt sitting up in bed, sleeping wearing CPAP. He continues to have mild mid chest pressure, deep breathing increases it somewhat, chest wall not tender to touch. CE's x3 negative. For PET stress this afternoon. PHYSICAL EXAM BP 172/75 Pulse 69 Temp (!) 35.1 ?C (95.2 ?F) (Oral) Resp 20 Ht 172.7 cm (5' 8) Wt 88.3 kg (194 lb 9.6 oz) SpO2 98% BMI 29.59 kg/m? Intake/Output Summary (Last 24 hours) at 02/11/18 1013 Last data filed at 02/11/18 1000 Gross per 24 hour Intake 360 ml Output 1765 ml Net -1405 ml General Appearance: Well developed and No distress HEENT: EOM's intact, no bruits and JVD - no Lungs: Decreased breath sounds Heart: Regular rate AND rhythm, no Murmur , S1, S2 normal, S4 present,no Edema and Vascular: Pulses - intact Abdomen: Soft, Round, Non-tender, Bowel sounds present, Bruits - no and Organomegaly - no Skin: Warm and Dry Musculoskeletal: No deformities Neurologic/Psychiatric: Oriented to time, place AND person MEDICATIONS Current hospital medications: QUEtiapine 100 mg tab(s) (SEROquel) 100 mg ORAL AT BEDTIME oxyCODONE-acetaminophen 5-325 mg 1-2 tablet (PERCOCET) 1-2 tablet ORAL q 6 H PRN amLODIPine 10 mg tab(s) (NORVASC) 10 mg ORAL AT BEDTIME metoprolol succinate ER 100 mg tab(s) (TOPROL XL) 100 mg ORAL DAILY nitroglycerin sublingual 0.4 mg tab(s) (NITROQUICK) 0.4 mg SUBLINGUAL q 5 MIN PRN ranolazine ER 500 mg tab(s) (RANEXA) 500 mg ORAL BID gabapentin 600 mg cap(s) (NEURONTIN) 600 mg ORAL AT BEDTIME ondansetron 4 mg tab(s) (ZOFRAN) 4 mg ORAL q 6 H PRN pravastatin 40 mg tab(s) (PRAVACHOL) 40 mg ORAL AT BEDTIME losartan 100 mg tab(s) (COZAAR) 100 mg ORAL DAILY albuterol HFA 90 mcg/actuation 2 Puff (PROVENTIL HFA, VENTOLIN HFA) 2 Puff INHALATION q 4 H PRN aspirin, enteric coated 81 mg tab(s) 81 mg ORAL DAILY docusate sodium 100 mg cap(s) (COLACE) 100 mg ORAL BID PRN perflutren lipid microspheres 1.1 mg/mL 1.3 mL injection (DEFINITY) 1.3 mL INTRAVENOUS DIRECTED PRN heparin 5,000 Units injection 5,000 Units SUBCUTANEOUS q 12 H DATA Recent Labs 02/11/1841 02/10/189 02/09/18 0950 WBC 7.14 7.19 8.24 HB 14.4 14.1 13.0 HCT 43.7 42.8 38.9* PLT 256 240 226 Recent Labs 02/11/1841 02/10/189 02/09/18 0950 NA 139 139 143 K 4.2 Unable to assay. Specimen significantly hemolyzed. 4.5 CO2 25 22 25 BUN 22 24 23 CREAT 1.16 1.19 1.36* GLUC 105* 94 124* MG 2.0 2.0 1.8 IMAGING ASSESSMENT AND PLAN This is a 66 year old male with PMH of CAD s/p CABG x 3 in 2005 (RHODES to LAD, SVg to RCA and SVg to LCx); [facility] in 11/2015 revealed occluded vein graft to LCx s/p stenting; -ve lexiscan in 05/2016, CHFrEF (EF 45%), h/o paroxysmal VT and ??Afib, s/p recent PPM placement (unclear if he has an ICD), and diverticulitis c/b perforation (July 2016) s/p Chad with loop colostomy with h/o multiple ED visits for stoma prolapse (was advised by [facility] to f/u in clinic for stoma closure but did not f/u). The patient was in his usual state of health until approximately 8am this morning when he noted that he bumped his stomas into the railing of his bed at home. ?He noted that his stoma prolapsed and he developed a sharp 8/10 pain around the stoma and noted the stoma filling with bowel contents. A/w nausea. ?No blood or melanotic stool in the stoma bag. After the stoma prolapsed he also noted a milder 5/10 aching pain in substernal area of his chest. ?He notes that manipulating the stoma makes his chest pain worse. ?He denies any change with exertion, breathing, eating, or changes in position. ?Of note on arrival to he ED his BP was 201/87 and on repeat was 178/93. On arrival to the ED an ECG was checked showed normal sinus rhythm with occasional PVCs and poor R wave progression, unchanged from his prior ECG on 03/03/17. ?CK-MB was 3.1 ?Troponin T was 0.026 and high sensitivity troponin was 53 and 1 hour repeat was 55. Cards was consulted --> enzymes elevation thought to be likely 2/2 demand ischemia in the setting of hypertensive crisis and poorly controlled pain. Of note, pt has had repeated hospitalizations for cp, most recently 03/20/17, when PE and ACS were ruled out. Most of pts cardiology care has been at . ? [facility] was consulted in the ED, the prolapse was reduced but recurred, recommended surgery to be scheduled as outpatient. ? Problem Other Chest Pain Hx: POA A: -- High sensitivity troponin 20 -->19. P:See CAD plan Coronary Artery Disease Involving Coronary Bypass Graft of [place] Heart Without Angina Pectoris Hx: -- CABG x3 (L:LAD, V:OM, V:RCA) 2005 at [place] -- Multiple PCIs (Last was GREY to LAD 01/2017 at ) A/P: -- Trend cardiac enzymes CE x3 negative -- Continue aspirin 81 mg daily -- Continue metoprolol succinate 100 mg daily -- Continue Ranexa 500 mg twice daily -- Continue pravastatin 40 mg daily (multiple other statin intolerances). Continues to have constant chest pressure P Pet stress today at 2:30pm Hyperlipidemia Hx: POA On pravastatin at home A: lipid panel 02/08/18 Total - 170 Triglycerides - 202 HDL - 29 LDL - 101 P: continue pravastatin Colostomy Care (Hcc) Hx:Colostomy 06/01 diverticulitis 07/2016 A/P: General surgery resident successfully reduced prolapsed stoma in ED. -- Continued observation for prolapse or pain Pulmonary Nodules Hx: Recent CT scan with 12 mm right upper lobe pulmonary nodule, and 6 mm left lateral costophrenic nodule. Patient with history of smoking. -- Continued outpatient follow-up Thyroid Nodule Hx:-- 3.2 high protein UA right thyroid nodule. A: TSH Date Value Ref Range Status 02/08/2018 1.240 0.400 - 5.500 uU/mL Final P: outpatient follow-up Aaa (Abdominal Aortic Aneurysm) Without Rupture (Hcc) Hx: Stable at 3.2 cm infrarenal on recent CT imaging. A/P: continue outpatient management Obstructive Sleep Apnea Hx: POA On CPAP at home A/P: CPAP in house Essential Hypertension Hx: POA On amlodipine, metoprolol and losartan at home A: BP on admission 168/59 BP has been stable P: monitor BP Continue amlodipine, metoprolol and losartan Case to be discussed with staff Victor Hugo Chauhan PA-C Pager [phone] (please see below for after hours communication) 02/11/2018 10:[address] Bunn saw Pt this pm, PT stress no ischemia smll< 10% fixed defect in LCx nd RCA Ok to C home Care Coordination Discharge Management: I personally spent greater than 30 minutes involved in the discharge management of this patient. All medications and potential SE were discussed with the Patient. Victor Hugo Chauhan PA-C 4:37 PM CBC Collected: 02/11/2018 Status: F Source: [place] [address]:41 AM [facility] REPOSITORY TYPE CODE TESTS RESULT OUT OF REFERENCE UNITS RANGE LAB WBC 3.70-11.00 k/uL WBC 7.14 LAB RBC 4.20-6.00 m/uL RBC 4.61 LAB HGB 13.0-17.0 g/dL Hemoglobin 14.4 LAB HCT 39.0-51.0 % Hematocrit 43.7 LAB MCV 80.0-100.0 fL MCV 94.8 LAB MCH 26.0-34.0 pG MCH 31.2 LAB MCHC 30.5-36.0 g/dL MCHC 33.0 LAB RDWCV 11.5-15.0 % RDW-CV 14.1 LAB PLTCT 150-400 k/uL Platelet Count 256 LAB MPV 9.0-12.7 fL MPV 10.8 LAB ABSNUC <0.01 k/uL Absolute nRBC <0.01 Performed By: #### CBC, BMP, MG1 #### [facility] [address] [place] [address] BASIC METABOLIC PANL Collected: 02/11/2018 Status: F Source: [place] 6:41 AM [facility] REPOSITORY TYPE CODE TESTS RESULT OUT OF REFERENCE UNITS RANGE LAB GLU 74-99 mg/dL High Glucose 105 Result Comment: The [place] Diabetes Association (ADA) provides guidance for cutoff values for fasting glucose and random glucose. The ADA defines fasting as no caloric intake for at least 8 hours. Fas ting plasma glucose results between 100 to 125 mg/dL indicate increased risk for diabetes (prediabetes). Fasting plasma glucose results greater than or equal to 126 mg/dL meet the criteria for diagnosis of diabetes. In the absence of unequivocal hyperglycemia, results should be confirmed by repeat testing. In a patient with classic symptoms of hyperglycemia or hyperglycemic crisis, random plasma glucose results greater than or equal to 200 mg/dL meet the criteria for diagnosis of diabetes. Reference: Standards of Medical Care in Diabetes 2016, [place] Diabetes Association. Diabetes Care. 2016.39(Suppl 1). LAB BUN 9-24 mg/dL BUN 22 LAB CRET 0.73-1.22 mg/dL Creatinine 1.16 LAB NA 136-144 mmol/L Sodium 139 LAB K 3.7-5.1 mmol/L Potassium 4.2 LAB CL 97-105 mmol/L Chloride 101 LAB CO2 22-30 mmol/L CO2 25 LAB AGAP 9-18 mmol/L Anion Gap 13 LAB CA 8.5-10.2 mg/dL Calcium, Total 9.4 LAB GFRAA eGFR- Amer. >60 LAB GFRNAA . eGFR-All Other Races >60 Result Comment: eGFR (Estimated GFR) Units of measure: mL/min/1.73 meters squared eGFR is derived from the reexpressed MDRD Study equation using the following parameters: serum creatinine, age, gender and race. The creatinine assay has been calibrated to be traceable to IDMS. An eGFR <60 mL/min/1.73m2 for >3 months is consistent with chronic kidney disease. Refer to KDOQI guidelines for clinical interpretation. In patients with unstable renal function, e.g. those with acute kidney injury, the eGFR may not accurately reflect actual GFR. Performed By: #### CBC, BMP, MG1 #### [facility] [address] [place], [place] [address] MAGNESIUM Collected: 02/11/2018 Status: F Source: [place] 6:41 AM [facility] REPOSITORY TYPE CODE TESTS RESULT OUT OF REFERENCE UNITS RANGE LAB MG 1.7-2.3 mg/dL Magnesium 2.0 Performed By: #### CBC, BMP, MG1 #### [facility] [address] [place], [place] [id number] PROGRESS Observed: 02/10/2018 Status: COMPLETED Source: [place] 8:28 AM [facility] REPOSITORY HNO ID: [id number] Author: Hue Kendrick MD Service: Cardiovascular Medicine Author Type: Physician Type: Progress Notes Filed: 02/10/2018 1:54 PM Note Text: [facility]ICINE PROGRESS NOTE (Template ID [id number]) Maxx Knott [id number] PRIMARY SERVICE: Hvi Card Intervention HOSPITAL DAY: # 3 INTERVAL HISTORY Enzymes negative PHYSICAL EXAM BP 162/71 Pulse 71 Temp 36 ?C (96.8 ?F) (Axillary) Resp 18 Ht 172.7 cm (5' 8) Wt 89.9 kg (198 lb 1.6 oz) SpO2 100% BMI 30.12 kg/m? Intake/Output Summary (Last 24 hours) at 02/10/18 0829 Last data filed at 02/10/18 0700 Gross per 24 hour Intake 720 ml Output 1625 ml Net -905 ml General: Well appearing, no acute distress Mouth: Moist mucus membranes Neck: JVP < 8cm Cardiac: RRR. No murmurs, rubs, or gallops Pulmonary: Clear to auscultation bilaterally. No wheezing or rales GI:Normoactive bowel sounds. No hepatosplenomegaly Extremities: No LE edema. Warm, well-perfused Skin: No rash or skin discoloration Psych: Appropriate. Alert and oriented to person, time, place, and situation Neuro: No deficits grossly. No slurred speech. Moving all extremities. MEDICATIONS Current hospital medications: QUEtiapine 100 mg tab(s) (SEROquel) 100 mg ORAL AT BEDTIME oxyCODONE-acetaminophen 5-325 mg 1-2 tablet (PERCOCET) 1-2 tablet ORAL q 6 H PRN amLODIPine 10 mg tab(s) (NORVASC) 10 mg ORAL AT BEDTIME metoprolol succinate ER 100 mg tab(s) (TOPROL XL) 100 mg ORAL DAILY nitroglycerin sublingual 0.4 mg tab(s) (NITROQUICK) 0.4 mg SUBLINGUAL q 5 MIN PRN ranolazine ER 500 mg tab(s) (RANEXA) 500 mg ORAL BID gabapentin 600 mg cap(s) (NEURONTIN) 600 mg ORAL AT BEDTIME ondansetron 4 mg tab(s) (ZOFRAN) 4 mg ORAL q 6 H PRN pravastatin 40 mg tab(s) (PRAVACHOL) 40 mg ORAL AT BEDTIME losartan 100 mg tab(s) (COZAAR) 100 mg ORAL DAILY albuterol HFA 90 mcg/actuation 2 Puff (PROVENTIL HFA, VENTOLIN HFA) 2 Puff INHALATION q 4 H PRN aspirin, enteric coated 81 mg tab(s) 81 mg ORAL DAILY docusate sodium 100 mg cap(s) (COLACE) 100 mg ORAL BID PRN perflutren lipid microspheres 1.1 mg/mL 1.3 mL injection (DEFINITY) 1.3 mL INTRAVENOUS DIRECTED PRN heparin 5,000 Units injection 5,000 Units SUBCUTANEOUS q 12 H DATA Recent Labs 02/10/18 0509 02/09/18 0950 02/08/18 0535 WBC 7.19 8.24 8.44 HB 14.1 13.0 13.0 HCT 42.8 38.9* 38.4* PLT 240 226 231 Recent Labs 02/09/18 0950 02/08/18 0535 02/07/18 2040 NA 143 142 141 K 4.5 3.3* 3.5* CO2 25 27 26 BUN 23 14 10 CREAT 1.36* 1.04 0.97 GLUC 124* 107* 104* MG 1.8 1.9 1.9 IMAGING 02/08 EKG: sinus w/ 1st degree aV block, inferior q waves and precordial TWI Echo: pending ASSESSMENT AND PLAN This is a 67 year old male with a past history notable for CABG x3 (L:LAD, V:OM, V:RCA) 2005 at [place], Multiple PCIs (Last was GREY to LAD 01/2017 at ), 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 Patient certainly has significant coronary disease. Many of his reported symptoms would be concerning for coronary disease. However, his symptoms are atypical in the sense that they are nonexertional, worse with deep inspiration, and not improved with nitroglycerin. High sensitivity troponin without an ischemic trend despite 5 hours of continuous chest pain. ECG without any clear ischemic changes. No clear signs of pericarditis. Overall, my suspicion for acute coronary syndrome is low given somewhat atypical symptoms, and not trending high sensitivity troponin. While I cannot completely exclude the possibility of angina, his recent clinical history make CAD seem less likely. Will admit patient to trend cardiac biomarkers, and to consider further ischemic evaluation pending overnight clinical course. Other possible explanations include musculoskeletal pain, referral pain for multiple pulmonary nodules, chronic pain, referred pain from colectomy. ? Active Hospital Problems ? Diagnosis - Other chest pain ? ? Ddx: pleuritic chest pain, CAD, musculoskeletal pain, referral pain for multiple pulmonary nodules, chronic pain, referred pain from colectomy. -- High sensitivity troponin 20 -->19. -- Trend cardiac biomarkers -- Follow-up echocardiogram ? - Coronary artery disease involving coronary bypass graft of [place] heart without angina pectoris ? ? -- Trend cardiac enzymes -- Continue aspirin 81 mg daily -- Continue metoprolol succinate 100 mg daily -- Continue Ranexa 500 mg twice daily -- Continue pravastatin 40 mg daily (multiple other statin intolerances). ? - Colostomy care (HCC) ? ? -- Continued observation for prolapse or pain ? - Pulmonary nodules ? ? Recent CT scan with 12 mm right upper lobe pulmonary nodule, and 6 mm left lateral costophrenic nodule. Patient with history of smoking. -- Continued outpatient follow-up. ? - Thyroid nodule ? ? -- 3.2 high protein UA right thyroid nodule. -- Follow-up TSH, and outpatient follow-up. ? - AAA (abdominal aortic aneurysm) without rupture (HCC) ? ? Stable at 3.2 cm infrarenal on recent CT imaging. ? - Obstructive sleep apnea ? ? CPAP ? Plan for today: - NPO at midnight, PET tomorrow for ischemic eval Case to be discussed with staff Kira Suarez MD Pager [phone] (please see below for after hours communication) For communication after 5 pm on weekdays and after 12 pm on weekends, please page the following: - Clinical Cardiology patients on all floors: page [phone] - Other Cardiology patients on J5 and J6: page [phone] - Other Cardiology patients on J7 and J8: page [phone] [facility] STAFF PHYSICIAN NOTE OF PERSONAL INVOLVEMENT IN CARE IMPRESSION: Patient is a 67 year old male with CAD, prior CABG and PCI. Admitted with atypical unremitting chest pain. Cardiac enzymes negative. No change in constant chest pain. PLAN: PET scan next week. I have reviewed the documentation obtained and documented by the Fellow and have reviewed and updated the problem list as appropriate. I have personally performed a face to face assessment of the patient and have personally participated in the nelson components. I have discussed the case and management of the patient's care. STAFF PHYSICIAN: Krista Kendrick MD DATE OF SERVICE: February 10, 2018 TIME OF SERVICE: 1:54 PM CBC Collected: 02/10/2018 Status: F Source: [place] 5:09 AM [facility] REPOSITORY TYPE CODE TESTS RESULT OUT OF REFERENCE UNITS RANGE LAB WBC 3.70-11.00 k/uL WBC 7.19 LAB RBC 4.20-6.00 m/uL RBC 4.55 LAB HGB 13.0-17.0 g/dL Hemoglobin 14.1 LAB HCT 39.0-51.0 % Hematocrit 42.8 LAB MCV 80.0-100.0 fL MCV 94.1 LAB MCH 26.0-34.0 pG MCH 31.0 LAB MCHC 30.5-36.0 g/dL MCHC 32.9 LAB RDWCV 11.5-15.0 % RDW-CV 14.3 LAB PLTCT 150-400 k/uL Platelet Count 240 LAB MPV 9.0-12.7 fL MPV 11.4 LAB ABSNUC <0.01 k/uL Absolute nRBC <0.01 Performed By: #### CBC, BMP, MG1 #### [facility] [address] [place], [place] [address] BASIC METABOLIC PANL Collected: 02/10/2018 Status: F Source: [place] 5:09 AM [facility] REPOSITORY TYPE CODE TESTS RESULT OUT OF REFERENCE UNITS RANGE LAB GLU 74-99 mg/dL Glucose 94 Result Comment: The [place] Diabetes Association (ADA) provides guidance for cutoff values for fasting glucose and random glucose. The ADA defines fasting as no caloric intake for at least 8 hours. Fas ting plasma glucose results between 100 to 125 mg/dL indicate increased risk for diabetes (prediabetes). Fasting plasma glucose results greater than or equal to 126 mg/dL meet the criteria for diagnosis of diabetes. In the absence of unequivocal hyperglycemia, results should be confirmed by repeat testing. In a patient with classic symptoms of hyperglycemia or hyperglycemic crisis, random plasma glucose results greater than or equal to 200 mg/dL meet the criteria for diagnosis of diabetes. Reference: Standards of Medical Care in Diabetes 2016, [place] [employer] Association. Diabetes Care. 2016.39(Suppl 1). LAB BUN 9-24 mg/dL BUN 24 LAB CRET 0.73-1.22 mg/dL 1.19 Creatinine LAB NA 136-144 mmol/L Sodium 139 LAB K 3.7-5.1 mmol/L Unable to assay. Potassium Specimen significantly hemolyzed. LAB CL 97-105 mmol/L Chloride 100 LAB CO2 22-30 mmol/L CO2 22 LAB AGAP 9-18 mmol/L Anion 17 Gap LAB CA 8.5-10.2 mg/dL Calcium, 9.3 Total LAB GFRAA >60 eGFR- Amer. LAB GFRNAA . eGFR-All >60 Other Races Result Comment: eGFR (Estimated GFR) Units of measure: mL/min/1.73 meters squared eGFR is derived from the reexpressed MDRD Study equation using the following parameters: serum creatinine, age, gender and race. The creatinine assay has been calibrated to be traceable to IDMS. An eGFR <60 mL/min/1.73m2 for >3 months is consistent with chronic kidney disease. Refer to KDOQI guidelines for clinical interpretation. In patients with unstable renal function, e.g. those with acute kidney injury, the eGFR may not accurately reflect actual GFR. Performed By: #### CBC, BMP, MG1 #### [facility] [address] [place], [place] [address] MAGNESIUM Collected: 02/10/2018 Status: F Source: [place] 5:09 AM [facility] REPOSITORY TYPE CODE TESTS RESULT OUT OF REFERENCE UNITS RANGE LAB MG 1.7-2.3 mg/dL Magnesium 2.0 Result Comment: Results may be falsely increased due to interference by hemolysis. Suggest reorder as clinically indicated. Performed By: #### CBC, BMP, MG1 #### [facility] [address] [place], [place] [address] ECG COMPLETE W Observed: 02/09/2018 Status: F Source: [place] INTERPRETATION 11:22 AM [facility] REPOSITORY NAME : MAXX KNOTT PID : [id number] : 1950 Gender : Male Race : ORD : [id number] Procedure Date : Feb 09 2018 11:22:21 Edit Date : Feb 12 2018 13:02:16 Diagnosis:SINUS RHYTHM WITH 1ST DEGREE AV BLOCK INFERIOR MYOCARDIAL INFARCTION , AGE UNDETERMINED CANNOT EXCLUDE ANTERIOR MYOCARDIAL INFARCTION , AGE UNDETERMINED ABNORMAL ECG Confirmed by ANEUDY DAWSON M.D. ([id number]) on 02/12/2018 1:02:14 PM Ventricular Rate : 76 BPM Atrial Rate : 76 BPM P-R Interval : 212 ms QRS Duration : 106 ms Q-T Interval : 420 ms QTC Calculation(Bezet) : 472 ms P [place] : 47 degrees R [place] : 24 degrees T [place] : 47 degrees Test Reason : Location : 373 : [id number] Overread By : ANEUDY DAWSON M.D. Edited By : ANEUDY DAWSON M.D. Referred By : , Acquired by : VICTOR HUGO PHELPS CBC Collected: 02/09/2018 Status: F Source: [place] 9:50 AM [facility] REPOSITORY TYPE CODE TESTS RESULT OUT OF REFERENCE UNITS RANGE LAB WBC 3.70-11.00 k/uL WBC 8.24 LAB RBC 4.20-6.00 m/uL Low RBC 4.14 LAB HGB 13.0-17.0 g/dL Hemoglobin 13.0 LAB HCT 39.0-51.0 % Low Hematocrit 38.9 LAB MCV 80.0-100.0 fL MCV 94.0 LAB MCH 26.0-34.0 pG MCH 31.4 LAB MCHC 30.5-36.0 g/dL MCHC 33.4 LAB RDWCV 11.5-15.0 % RDW-CV 14.5 LAB PLTCT 150-400 k/uL Platelet Count 226 LAB MPV 9.0-12.7 fL MPV 10.8 LAB ABSNUC <0.01 k/uL Absolute nRBC <0.01 Performed By: #### CBC, BMP, MG1 #### [facility] [address] [place] [id number] BASIC METABOLIC PANL Collected: 02/09/2018 Status: F Source: [place] 9:50 AM [facility] REPOSITORY TYPE CODE TESTS RESULT OUT OF REFERENCE UNITS RANGE LAB GLU 74-99 mg/dL High Glucose 124 Result Comment: The [place] Diabetes Association (ADA) provides guidance for cutoff values for fasting glucose and random glucose. The ADA defines fasting as no caloric intake for at least 8 hours. Fas ting plasma glucose results between 100 to 125 mg/dL indicate increased risk for diabetes (prediabetes). Fasting plasma glucose results greater than or equal to 126 mg/dL meet the criteria for diagnosis of diabetes. In the absence of unequivocal hyperglycemia, results should be confirmed by repeat testing. In a patient with classic symptoms of hyperglycemia or hyperglycemic crisis, random plasma glucose results greater than or equal to 200 mg/dL meet the criteria for diagnosis of diabetes. Reference: Standards of Medical Care in Diabetes 2016, [place] [employer]. Diabetes Care. 2016.39(Suppl 1). LAB BUN 9-24 mg/dL BUN 23 LAB CRET 0.73-1.22 mg/dL Creatinine High 1.36 LAB NA 136-144 mmol/L Sodium 143 LAB K 3.7-5.1 mmol/L Potassium 4.5 LAB CL 97-105 mmol/L Chloride 104 LAB CO2 22-30 mmol/L CO2 25 LAB AGAP 9-18 mmol/L Anion Gap 14 LAB CA 8.5-10.2 mg/dL Calcium, Total 9.6 LAB GFRAA eGFR- Amer. >60 LAB GFRNAA . eGFR-All Other Races 52 Result Comment: eGFR (Estimated GFR) Units of measure: mL/min/1.73 meters squared eGFR is derived from the reexpressed MDRD Study equation using the following parameters: serum creatinine, age, gender and race. The creatinine assay has been calibrated to be traceable to IDMS. An eGFR <60 mL/min/1.73m2 for >3 months is consistent with chronic kidney disease. Refer to KDOQI guidelines for clinical interpretation. In patients with unstable renal function, e.g. those with acute kidney injury, the eGFR may not accurately reflect actual GFR. Performed By: #### CBC, BMP, MG1 #### [facility] [address] [place], [place] [address] MAGNESIUM Collected: 02/09/2018 Status: F Source: [place] 9:50 AM [facility] REPOSITORY TYPE CODE TESTS RESULT OUT OF REFERENCE UNITS RANGE LAB MG 1.7-2.3 mg/dL Magnesium 1.8 Performed By: #### CBC, BMP, MG1 #### [facility] [address] [place], [place] [address] PROGRESS Observed: 02/09/2018 Status: COMPLETED Source: [place] 9:01 AM [facility] REPOSITORY HNO ID: [id number] Author: Hue Kendrick MD Service: Cardiovascular Medicine Author Type: Physician Type: Progress Notes Filed: 02/09/2018 1:56 PM Note Text: [facility] CARDI[facility]ULAR [facility]ICINE PROGRESS NOTE (Template ID [id number]) Maxx Knott [id number] PRIMARY SERVICE: Hvi Card Intervention HOSPITAL DAY: # 2 INTERVAL HISTORY Enzymes negative PHYSICAL EXAM BP 136/67 Pulse 65 Temp (!) 35.7 ?C (96.3 ?F) (Oral) Resp 18 Ht 172.7 cm (5' 8) Wt 90 kg (198 lb 6.4 oz) SpO2 96% BMI 30.17 kg/m? Intake/Output Summary (Last 24 hours) at 02/09/18 0901 Last data filed at 02/09/18 0625 Gross per 24 hour Intake 720 ml Output 700 ml Net 20 ml General: Well appearing, no acute distress Mouth: Moist mucus membranes Neck: JVP < 8cm Cardiac: RRR. No murmurs, rubs, or gallops Pulmonary: Clear to auscultation bilaterally. No wheezing or rales GI:Normoactive bowel sounds. No hepatosplenomegaly Extremities: No LE edema. Warm, well-perfused Skin: No rash or skin discoloration Psych: Appropriate. Alert and oriented to person, time, place, and situation Neuro: No deficits grossly. No slurred speech. Moving all extremities. MEDICATIONS Current hospital medications: amLODIPine 10 mg tab(s) (NORVASC) 10 mg ORAL AT BEDTIME metoprolol succinate ER 100 mg tab(s) (TOPROL XL) 100 mg ORAL DAILY QUEtiapine 200 mg tab(s) (SEROquel) 200 mg ORAL AT BEDTIME nitroglycerin sublingual 0.4 mg tab(s) (NITROQUICK) 0.4 mg SUBLINGUAL q 5 MIN PRN ranolazine ER 500 mg tab(s) (RANEXA) 500 mg ORAL BID gabapentin 600 mg cap(s) (NEURONTIN) 600 mg ORAL AT BEDTIME ondansetron 4 mg tab(s) (ZOFRAN) 4 mg ORAL q 6 H PRN pravastatin 40 mg tab(s) (PRAVACHOL) 40 mg ORAL AT BEDTIME losartan 100 mg tab(s) (COZAAR) 100 mg ORAL DAILY albuterol HFA 90 mcg/actuation 2 Puff (PROVENTIL HFA, VENTOLIN HFA) 2 Puff INHALATION q 4 H PRN aspirin, enteric coated 81 mg tab(s) 81 mg ORAL DAILY acetaminophen 650 mg tab(s) (TYLENOL) 650 mg ORAL q 4 H PRN docusate sodium 100 mg cap(s) (COLACE) 100 mg ORAL BID PRN perflutren lipid microspheres 1.1 mg/mL 1.3 mL injection (DEFINITY) 1.3 mL INTRAVENOUS DIRECTED PRN heparin 5,000 Units injection 5,000 Units SUBCUTANEOUS q 12 H oxyCODONE IR 10 mg tab(s) (ROXICODONE) 10 mg ORAL q 6 H PRN DATA Recent Labs 02/08/18 0535 02/07/182039 WBC 8.44 9.39 HB 13.0 14.1 HCT 38.4* 40.9 PLT 231 266 Recent Labs 02/08/18 0535 02/07/182039 NA 142 141 K 3.3* 3.5* CO2 27 26 BUN 14 10 CREAT 1.04 0.97 GLUC 107* 104* MG 1.9 1.9 IMAGING 02/08 EKG: sinus w/ 1st degree aV block, inferior q waves and precordial TWI Echo: pending ASSESSMENT AND PLAN This is a 67 year old male with a past history notable for CABG x3 (L:LAD, V:OM, V:RCA) 2005 at [place], Multiple PCIs (Last was GREY to LAD 01/2017 at ), 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 Patient certainly has significant coronary disease. Many of his reported symptoms would be concerning for coronary disease. However, his symptoms are atypical in the sense that they are nonexertional, worse with deep inspiration, and not improved with nitroglycerin. High sensitivity troponin without an ischemic trend despite 5 hours of continuous chest pain. ECG without any clear ischemic changes. No clear signs of pericarditis. Overall, my suspicion for acute coronary syndrome is low given somewhat atypical symptoms, and not trending high sensitivity troponin. While I cannot completely exclude the possibility of angina, his recent clinical history make CAD seem less likely. Will admit patient to trend cardiac biomarkers, and to consider further ischemic evaluation pending overnight clinical course. Other possible explanations include musculoskeletal pain, referral pain for multiple pulmonary nodules, chronic pain, referred pain from colectomy. ? Active Hospital Problems ? Diagnosis - Other chest pain ? ? Ddx: pleuritic chest pain, CAD, musculoskeletal pain, referral pain for multiple pulmonary nodules, chronic pain, referred pain from colectomy. -- High sensitivity troponin 20 -->19. -- Trend cardiac biomarkers -- Follow-up echocardiogram ? - Coronary artery disease involving coronary bypass graft of [place] heart without angina pectoris ? ? -- Trend cardiac enzymes -- Continue aspirin 81 mg daily -- Continue metoprolol succinate 100 mg daily -- Continue Ranexa 500 mg twice daily -- Continue pravastatin 40 mg daily (multiple other statin intolerances). ? - Colostomy care (HCC) ? ? -- Continued observation for prolapse or pain ? - Pulmonary nodules ? ? Recent CT scan with 12 mm right upper lobe pulmonary nodule, and 6 mm left lateral costophrenic nodule. Patient with history of smoking. -- Continued outpatient follow-up. ? - Thyroid nodule ? ? -- 3.2 high protein UA right thyroid nodule. -- Follow-up TSH, and outpatient follow-up. ? - AAA (abdominal aortic aneurysm) without rupture (HCC) ? ? Stable at 3.2 cm infrarenal on recent CT imaging. ? - Obstructive sleep apnea ? ? CPAP ? Case to be discussed with staff Kira Suarez MD Pager [phone] (please see below for after hours communication) 02/09/2018 9:01 AM For communication after 5 pm on weekdays and after 12 pm on weekends, please page the following: - Clinical Cardiology patients on all floors: page [phone] - Other Cardiology patients on J5 and J6: page [phone] - Other Cardiology patients on J7 and J8: page [phone] [facility] STAFF PHYSICIAN NOTE OF PERSONAL INVOLVEMENT IN CARE IMPRESSION: Patient is a 67 year old male with CAD, prior CABG and PCI. Admitted with atypical unremitting chest pain. Cardiac enzymes negative. Doubt ischemic chest pain. Patient is concerned, however, and reluctant for discharge prior to functional testing. PLAN: PET scan. I have reviewed the documentation obtained and documented by the Fellow and have reviewed and updated the problem list as appropriate. I have personally performed a face to face assessment of the patient and have personally participated in the nelson components. I have discussed the case and management of the patient's care. 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 Surface Type: Discharge Summaries Filed: 02/12/2018 1:46 PM Note Text: Department of Cardivascular Medicine Discharge Summary PATIENT NAME: Maxx Knott ADMISSION DATE: 02/07/2018 DISCHARGE DATE: 02/12/2018 Attending Physician: Dr Bunn Code Status: Not on file Primary Service: Hvi Card Intervention Admission Diagnosis: Chest pain Discharge Diagnosis: Chest pain Secondary Diagnoses: Patient Active Hospital Problem List: Other chest pain (02/07/2018) Coronary artery disease involving coronary bypass graft of [place] heart without angina pectoris (02/07/2018) Essential hypertension (07/22/2017) Colostomy care ([facility]) (02/07/2018) Pulmonary nodules (02/07/2018) Thyroid nodule (02/07/2018) AAA (abdominal aortic aneurysm) without rupture ([facility]) (02/07/2018) Obstructive sleep apnea (02/07/2018) Hyperlipidemia (02/08/2018) Reason for Hospitalization: This is a 67 year old male with a past history notable for: -- CABG x3 (L:LAD, V:OM, V:RCA) 2005 at [place] -- Multiple PCIs (Last was GREY to LAD 01/2017 at ) -- PPM for second degree heart block and bradycardia -- Colostomy 2 diverticulitis 07/2016 -- Chronic lower back pain -- History of tobacco abuse ?Admitted now w chest pain. Hospital Course: Medical management of his chest pain was continued. He remained on his sandeep meds. Peak CK/Troponin 38/<0.010. Enzymes remained negative aand ekg was unchanged. He contineud to have mild mid chest discomfort. He remained over weekend, PET stress showed no ichmeia small < 10% fixed defect in LC and RCA. Echo F 45%. Pt was re-assured that his chest pain was not heat related. The patient remained HD stable. The patient was discharged in stable condition Consults: None Major Procedure or Operation: Echo 02-09-2018 CONCLUSIONS: - Technically difficult exam due to body habitus. - Exam indication: Evaluation of ventricular function following ACS - The left ventricle is mildly dilated. Left ventricular systolic function is mildly decreased. EF = 45 ? 5% (visual est.) Grade I left ventricular diastolic dysfunction. Abnormal global strain -14.1% - The right ventricle is normal in size. Right ventricular systolic function is normal. - The left atrial cavity is mildly dilated. - Exam was compared with the prior echocardiographic exam performed on 04/02/2017. No significant change Pet stress 02-11-2018 CONCLUSIONS: ?1. PET Perfusion Study: Abnormal. ?2. No evidence of ischemia. ?3. There is a small (<10%) fixed perfusion defect in the LCX territory. ?4. There is a small (<10%) fixed perfusion defect in the RCA territory. ?5. Left ventricle is moderately dilated. The left ventricle systolic function is mildly decreased. ?6. Right ventricle is normal in size. The right ventricle systolic function is normal. ?7. Functional capacity N/A (pharmacological). ?8. This is an intermediate risk scan. ?Gated Stress IR:3D:SC:CTAC Gated Rest IR:3D:SC:CTAC ?LVEF % 42 ? 40 Other Procedures, Testing AND Radiology: None Patient Condition at Discharge: Improved Disposition: Home/Self Care Information Provided to the Patient: Patient given copy of After Visit Summary which included activity instructions, diet instructions, wound care instructions, medication instructions and follow up appointment ALLERGIES Allergen Reactions - Altaseptic Unknown - Brilinta [Ticagrelo* Unknown - Crestor [Rosuvastat* Myalgia - Hctz [Amiloride-Hyd* Swelling - Moxifloxacin Swelling - Other [place]-3s Unknown brelinta - Ramipril Swelling Other reaction(s): Facial swelling - Simvastatin Myalgia Other reaction(s): Facial swelling - Voltaren [Diclofena* Unknown Discharge Medications: Discharge Medication List as of 02/12/2018 9:50 AM START taking these medications oxyCODONE-acetaminophen (PERCOCET) 5-325 mg tablet Take 1-2 tablets by mouth every 6 hours as needed for up to 7 days. Print RX, Disp-10 tablet, R-0 Dx: 1. Chest pain, unspecified type 2. Colostomy care ([facility]) CONTINUE these medications which have NOT CHANGED ranolazine ER (RANEXA) 500 mg 12 hr tablet Take 1 tablet by mouth twice daily. Normal, Disp-60 tablet, R-0, Long-term ondansetron (ZOFRAN) 4 mg tablet Take 4 mg by mouth every 6 hours as needed. Historical Med vitamin B complex (B COMPLEX ORAL) Take 1 tablet by mouth once daily. Historical Med, Long-term aspirin, enteric coated (ASPIRIN, ENTERIC COATED) 81 mg EC tablet Take 81 mg by mouth once daily. Historical Med cyclobenzaprine (FLEXERIL) 10 mg tablet Take 1 tablet by mouth at bedtime as needed for Muscle Spasm. Med Update, Long-term Dx: 1. Chronic low back pain, unspecified back pain laterality, with sciatica presence unspecified amLODIPine (NORVASC) 10 mg tablet Take 10 mg by mouth once daily. Historical Med loratadine 10 mg cap Take 1 capsule every day by oral route as needed Historical Med pravastatin (PRAVACHOL) 40 mg tablet Take 40 mg by mouth daily at bedtime. Historical Med gabapentin (NEURONTIN) 300 mg capsule Take 2 capsules by mouth daily at bedtime for 90 days. Normal, Disp-90 capsule, R-0, Long-term Dx: 1. Chronic low back pain, unspecified back pain laterality, with sciatica presence unspecified metoprolol succinate ER (TOPROL XL) 100 mg Tb24 Take 1 tablet by mouth once daily. Normal, Disp-90 tablet, R-4, Long-term QUEtiapine (SEROQUEL) 200 mg tablet Take 2 tablets by mouth daily at bedtime. Normal, Disp-60 tablet, R-0, Long-term !! COMPOUNDED PRESCRIPTION One Piece Ostomy Pouch Item Type: Coloplast Sensura One Piece Non-Sterile with Window 38-4 1/2'' ?5/Box ICD 10: Prolapsed Stoma K94.09 Print RX, Disp-1 Box, R-0 !! COMPOUNDED PRESCRIPTION Paste: Convatec Stomahesive 1 tube ICD 10: Prolapsed Stoma K 94.09 Print RX, Disp-1 Tube, R-0 MULTIVIT WITH IRON,MINERALS (MULTIVITAMIN AND MINERALS ORAL) Take 1 capsule by mouth once daily. Historical Med albuterol HFA (PROVENTIL HFA, VENTOLIN HFA) 90 mcg/actuation inhaler Inhale 2 Puffs as instructed every 4 hours as needed for Wheezing/Shortness of Breath. Historical Med fluticasone (FLONASE) 50 mcg/actuation nasal spray Use 1 [place] in the nose once daily as needed. Historical Med nitroglycerin sublingual (NITROSTAT) 0.[address] ONE(1) TABLET UNDER TONGUE NEEDED FOR CHEST PAIN. IF NO PAIN RELIEF CALL 911 Print RX, Disp-25 tablet, R-0 losartan (COZAAR) 100 mg tablet Take 100 mg by mouth once daily. Historical Med furosemide (LASIX) 20 mg tablet Take 40 mg by mouth once daily as needed. Historical Med !! - Potential duplicate medications found. Please discuss with provider. STOP taking these medications oxyCODONE IR (ROXICODONE) 10 mg tab Comments: Reason for Stopping: Outpatient Management: * Are there important medication changes and/or outstanding issues that need to be addressed: BP remains stable * What is the plan for follow up: follow up with local fabric stretcher and local straightening machine operator at Future Appointments: Please follow-up as recommended by your provider. Highest Readmission Risk Score: 33 The 30 day readmissions risk score is derived from an internally validated risk model which evaluates patient level characteristics, utilization history, medication orders and lab results up until the day of discharge. Patients with a score of 40 or above are considered highest risk for readmission. Specific patient level drivers will be listed at the bottom of the summary. This patient?s risk for 30-day readmission is determined using the following contributing drivers Pt variables contributing to increased readmission risk: 16 Active Medication Orders 14 Most Recent BUN Result 13 Number of Previous ED Visits (6 mos.) 10 Number of Hospitalizations (12 mos.) 9.9 First Resulted Calcium During Admission 1 Previous ED Visit (6 mos.)? 1 Insurance - Medicare 1 Active Anticoagulant Electronically SIGNED by Licensed Independent Practitioner: Lisa Mensah PA-C/Victor Hugo Chauhan PA-C CK, TOTAL AND CKMB Collected: 02/08/2018 Status: F Source: [place] 5:58 PM [facility] REPOSITORY TYPE CODE TESTS RESULT OUT OF REFERENCE UNITS RANGE LAB CK 51-298 U/L Low 27 CK LAB MB <7.7 ng/mL MB 1.0 LAB CKMBRI 0.0-4.0 % CK CK MB MB % not % reported with CK <100 U/L. Performed By: #### CKCKMB, BRAYAN #### [facility] [address] [place], [place] [address] TROPONIN T Collected: 02/08/2018 Status: F Source: [place] 5:58 PM [facility] REPOSITORY TYPE CODE TESTS RESULT OUT OF REFERENCE UNITS RANGE LAB TROPT 0.000-0.029 ng/mL Troponin T <0.010 Performed By: #### CKCKMB, BRAYAN #### [facility] [address] [place], [place] [address] NUTRITION Observed: 02/08/2018 Status: COMPLETED Source: [place] 3:40 PM [facility] REPOSITORY HNO ID: [id number] Author: Basil Piper Service: Nutrition Therapy Author Type: Registered Dietitian Type: Nutrition Filed: 02/08/2018 4:04 PM Note Text: NUTRITION THERAPY SCREENING NOTE SERVICE DATE: 02/08/2018 NUTRITION CARE PLAN Patient's weight is stable and nutritional intake is adequate. Patient is not at risk for malnutrition at this time. Patient with good intakes and weight stable in [facility]. Patient reports history of weight loss prior to colostomy but no significant weight loss noted over past year. Intervention: 1. Recommend Heart Healthy- 4 GM NA diet 2. 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 Current Diet Order DIET HEART HEALTHY Order Specific Question: Heart Healthy Answer: 2 GM SODIUM (<200 MG CHOL / LOW SAT FAT) Nutritional Intake Prior to Admission: Pt reports good appetite and states he eats well. Pt reports no problems tolerating diet. Doing well colostomy with no complications. Pt feels like he is not getting enough food and would like substantial snack at hs. Anthropometrics: Height: 172.7 cm (5' 8) Admission Weight: 87.5 kg (192 lb 12.8 oz) Current Weight: 87.3 kg (192 lb 6.4 oz) Body mass index is 29.25 kg/m?. overweight Weight has not changed significantly per [facility]. Pt reports he had some weight loss in the past prior to colostomy but states weight has been stable. Date WEIGHT 01/31/2017 90.719 kg 08/09/2017 90.266 kg 08/16/2017 86.41 kg 08/28/2017 87.091 kg 10/09/2017 88.451 kg 10/27/2017 88.451 kg 11/18/2017 86.183 kg 11/30/2017 87.544 kg 12/02/2017 92.2 kg 02/02/2018 88.451 kg 02/08/2018 87.272 kg Recent Labs 02/08/18 0535 02/07/18 2040 GLUC 107* 104* BUN 14 10 CREAT 1.04 0.97 NA 142 141 K 3.3* 3.5* CHLOR 101 100 CO2 27 26 ALB -- 4.4 HB 13.0 14.1 HCT 38.4* 40.9 WBC 8.44 9.39 MG 1.9 1.9 MNT Billing Type: Initial Assess/15 min 2 units SIGNATURE: Basil Piper RD PATIENT NAME: Maxx Knott DATE: February 08, 2018 TIME: 3:41 PM PAGER: [phone] ALLIED HEALTH Observed: 02/08/2018 Status: COMPLETED Source: [place] 3:01 PM [facility] REPOSITORY HNO ID: [id number] Author: Faviola KingRn) Ian Saldana RN Service: Wound/Ostomy Author Type: Registered Nurse Type: Allied Health Filed: 02/08/2018 3:16 PM Note Text: ET/WOCN Nursing Consult Topic: ET/WOCN Consultation Note Outcome: Pt. declined a pouch change to his colostomy as his pouch was changed in the emergency room. Currently the pouch is intact. Stoma is red and moist functioning with brown pasty stool in pouch. Pt. states the next day he will change on 02/13/18 and he agreed to have the [facility] nurse assess the stoma and skin at that change. Pt. denies any skin or stoma problems. Stoma is approximated 3 1/2 x 1 1/2 and the system worn by pt. is the [place] 4 [place] point Lock flat flange and drainable pouch. Pt. brought his own supplies with him. Next Scheduled Visit: 02/13/18 for scheduled change. Time Increment: 15 minutes Faviola CARVALHO RN CWOCN CASE MGT INIT Observed: 02/08/2018 Status: COMPLETED Source: [facility] 1:22 PM [facility] REPOSITORY HNO ID: [id number] Author: Cruzito KingRn) MITCHELL Hutchison Service: Case Management Author Type: Registered Nurse Type: Care Mgt Initial Assessment Filed: 02/08/2018 1:29 PM Note Text: CARE MANAGEMENT: ASSESSMENT AND DISCHARGE PLAN SERVICE DATE: 02/08/2018 SERVICE TIME: 1:22 PM PRIMARY CARE PHYSICIAN: Bijan Perez MD-confirmed ADMISSION STATUS: Inpatient Needs Prior to Discharge: None MEDICAL: Patient/Home Comfort Advisor Stated Goals: To return home to life as it was Health Insurance: MEDICARE A AND B [facility] Health Issues Impacting Discharge Plan: None Last Admission Date: Previous admit date: 12/02/2017 Is this Within the Past 30 days? No Advance Directive: Current Advance Directive: None Office Services Clerk Attempted to Assist with AD Completion: Yes Action: Education Provided Health Literacy: 1. How often do you need to have someone help you when you read instructions, pamphlets, or other written material from your doctor or pharmacy? Never - 1 2. How confident are you filling out medical forms by yourself? Extremely - 1 If Patient scores > 3 on either question, the following interventions were put into place: Patient did not score > 3 FUNCTIONAL AND COGNITIVE/BEHAVIORAL PRIOR TO ADMISSION: Baseline Mental Status: Alert AND Oriented, Person, Place , Time and Situation Functional Status: Independent Does Patient Currently Receive Any Community Services or Home Care? None Equipment Prior to Admission: Bi-level Positive Airway Pressure/Continuous Positive Airway Pressure Cane - Straight Walker Has the Patient Been in a Half-Way Facility in the Past 30 days? No SOCIAL: Living Arrangement: Home Lives With: brother Financial Resources: Retired Primary Contact: Extended Emergency Contact Information Primary Emergency Contact: Rn Cardiovascular IcuMary Address: [address] [place] [address] Mobile Relation: Brother Supportive: Yes Other Important Patient Contacts: None Caregiver Assessment: Caregiver is ready, willing and able to meet the patient's needs as recommended by the inter-professional team? No Caregiver Needed Patient's transition needs and plan for meeting these needs: Independent with ADLs prior to admission. Does the patient have an acute stroke diagnosis, or has the patient had a stroke during this admission? No Medication Adherence: I am convinced of the importance of my prescription medication: Agree mostly - 0 I worry that my prescription medication will do more harm than good to me Disagree mostly - 0 I feel financially burdened by my [id number] expenses for my prescription medication: Disagree mostly -0 Patient is categorized as low risk < 2 Are you interested in bedside delivery of your medications? Yes Food Concerns: In the Last Month, Have You had Trouble Getting Food? No trouble getting food During the Last Month, Have You Worried Whether Your Food Would Run Out Before You Had Enough Money to Buy More? No Is the Patient Psychosocially Complex? No ASSESSMENT AND PLAN: Medical Needs: None Psychosocial Needs: None FREEDOM OF CHOICE EXPLAINED: N/A POTENTIAL TRANSITION PLANS No Services Indicated 67 YO presents with chest pain. Met with patient at the bedside, explained CM role. Patient lives with brother in an apartment. Has assistive DME for ambulation that he use as needed. Denies the use of Home O2. Wears CPAP at night. Has transportation upon discharge. No skilled needs identified at this time. CM will continue to follow medical course and discharge accordingly. SIGNATURE: Cruzito Hutchison RN PATIENT NAME: Maxx Kontt DATE: February 08, 2018 TIME: 1:22 PM PAGER/CONTACT #: [phone] CK, TOTAL AND CKMB Collected: 02/08/2018 Status: F Source: [place] 12:46 PM [facility] REPOSITORY TYPE CODE TESTS RESULT OUT OF REFERENCE UNITS RANGE LAB CK 51-298 U/L Low 30 CK LAB MB <7.7 ng/mL MB 1.1 LAB CKMBRI 0.0-4.0 % CK CK MB MB % not % reported with CK <100 U/L. Performed By: #### CKCKMB, BRAYAN #### [facility] [address] [place], [place] [id number] TROPONIN T Collected: 02/08/2018 Status: F Source: [place] 12:46 PM [facility] REPOSITORY TYPE CODE TESTS RESULT OUT OF REFERENCE UNITS RANGE LAB TROPT 0.000-0.029 ng/mL Troponin T <0.010 Performed By: #### CKCKMB, BRAYAN #### [facility] [address] [place], [place] [address] ECG COMPLETE W Observed: 02/08/2018 Status: F Source: [place] INTERPRETATION 8:38 AM [facility] REPOSITORY NAME : MAXX KNOTT PID : [id number] : 1950 Gender : Male Race : ORD : [id number] Procedure Date : Feb 08 2018 08:38:43 Edit Date : Feb 08 2018 22:06:39 Diagnosis:SINUS RHYTHM WITH 1ST DEGREE AV BLOCK WITH OCCASIONAL PREMATURE VENTRICULAR COMPLEXES AND FUSION COMPLEXES POSSIBLE INFERIOR MYOCARDIAL INFARCTION , AGE UNDETERMINED ANTEROLATERAL T WAVE ABNORMALITY ABNORMAL ECG Confirmed by SHIRLEY WALDEN MD ([id number]) on 02/08/2018 10:06:33 PM Ventricular Rate : 68 BPM Atrial Rate : 68 BPM P-R Interval : 222 ms QRS Duration : 112 ms Q-T Interval : 432 ms QTC Calculation(Bezet) : 459 ms P [place] : 49 degrees R [place] : 36 degrees T [place] : 109 degrees Test Reason : Location : 373 : J73 15 Overread By : SHIRLEY WALDEN MD Edited By : SHIRLEY WALDEN MD Referred By : , Acquired by : ASHER CANNON CBC Collected: 02/08/2018 Status: F Source: [place] 5:35 AM [facility] REPOSITORY TYPE CODE TESTS RESULT OUT OF REFERENCE UNITS RANGE LAB WBC 3.70-11.00 k/uL WBC 8.44 LAB RBC 4.20-6.00 m/uL Low RBC 4.15 LAB HGB 13.0-17.0 g/dL Hemoglobin 13.0 LAB HCT 39.0-51.0 % Low Hematocrit 38.4 LAB MCV 80.0-100.0 fL MCV 92.5 LAB MCH 26.0-34.0 pG MCH 31.3 LAB MCHC 30.5-36.0 g/dL MCHC 33.9 LAB RDWCV 11.5-15.0 % RDW-CV 13.7 LAB PLTCT 150-400 k/uL Platelet Count 231 LAB MPV 9.0-12.7 fL MPV 10.7 LAB ABSNUC <0.01 k/uL Absolute nRBC <0.01 Performed By: #### CBC, LIPB, BMP, MG1, TSH, HBA1C #### [facility] [address] [place], [place] [address] LIPID PANEL, BASIC Collected: 02/08/2018 Status: F Source: [place] 5:35 AM [facility] REPOSITORY TYPE CODE TESTS RESULT OUT OF REFERENCE UNITS RANGE LAB CHOL <200 mg/dL Cholesterol 170 Result Comment: <200 mg/dL, Desirable 200-239 mg/dL, Borderline high >239 mg/dL, High LAB TRIGLY <150 mg/dL Triglyceride High 202 Result Comment: <150 mg/dL, Normal 150-199 mg/dL, Borderline high 200-499 mg/dL, High >499 mg/dL, Very high LAB HDL >39 mg/dL HDL-Cholesterol Low 29 Result Comment: 40-59 mg/dL, Acceptable >59 mg/dL, High: Negative risk factor for coronary heart disease <40 mg/dL, Low: Positive risk factor for coronary heart disease LAB LDL <100 mg/dL LDL-Cholesterol High 101 Result Comment: <100 mg/dL, Optimal 100-129 mg/dL, Near optimal/above optimal 130-159 mg/dL, Borderline high 160-189 mg/dL, High >189 mg/dL, Very high Secondary prevention optimal LDL Cholesterol levels are recommended to be < 70 mg/dL LAB NONHDL <130 mg/dL Non HDL High Cholesterol 141 Result Comment: <130 mg/dL, Optimal 130-159 mg/dL, Near optimal/above optimal 160-189 mg/dL, Borderline high 190-219 mg/dL, High >219 mg/dL, Very high Secondary prevention optimal non HDL Cholesterol levels are recommended to be < 100 mg/dL LAB FT hrs Fasting Time Unknown LAB VLDL <30 mg/dL VLDL 40 High Cholesterol LAB TCHDL <5.10 TC:HDL Ratio High 5.86 LAB LDLHDL <2.54 LDL:HDL Ratio High 3.48 Result Comment: Reference: 1. National Cholesterol Education Program ATP III Guideline At-A-Glance Quick Desk Reference: National Heart, Lung, and Blood [place]. National Institutes of Health. 2001: NIH Publication No. 01-3305. 2. An International Atherosclerosis Society position paper: global recommendations for the management of dyslipidemia: executive summary, Atherosclerosis. 2014: 232(2):410-413. Performed By: #### CBC, LIPB, BMP, MG1, TSH, HBA1C #### [facility] [address] [place], [place] [address] BASIC METABOLIC PANL Collected: 02/08/2018 Status: F Source: [place] 5:35 AM [facility] REPOSITORY TYPE CODE TESTS RESULT OUT OF REFERENCE UNITS RANGE LAB GLU 74-99 mg/dL High Glucose 107 Result Comment: The [place] Diabetes Association (ADA) provides guidance for cutoff values for fasting glucose and random glucose. The ADA defines fasting as no caloric intake for at least 8 hours. Fas ting plasma glucose results between 100 to 125 mg/dL indicate increased risk for diabetes (prediabetes). Fasting plasma glucose results greater than or equal to 126 mg/dL meet the criteria for diagnosis of diabetes. In the absence of unequivocal hyperglycemia, results should be confirmed by repeat testing. In a patient with classic symptoms of hyperglycemia or hyperglycemic crisis, random plasma glucose results greater than or equal to 200 mg/dL meet the criteria for diagnosis of diabetes. Reference: Standards of Medical Care in Diabetes 2016, [place] Diabetes Association. Diabetes Care. 2016.39(Suppl 1). LAB BUN 9-24 mg/dL BUN 14 LAB CRET 0.73-1.22 mg/dL Creatinine 1.04 LAB NA 136-144 mmol/L Sodium 142 LAB K 3.7-5.1 mmol/L Potassium Low 3.3 LAB CL 97-105 mmol/L Chloride 101 LAB CO2 22-30 mmol/L CO2 27 LAB AGAP 9-18 mmol/L Anion Gap 14 LAB CA 8.5-10.2 mg/dL Calcium, Total 9.3 LAB GFRAA eGFR- Amer. >60 LAB GFRNAA . eGFR-All Other Races >60 Result Comment: eGFR (Estimated GFR) Units of measure: mL/min/1.73 meters squared eGFR is derived from the reexpressed MDRD Study equation using the following parameters: serum creatinine, age, gender and race. The creatinine assay has been calibrated to be traceable to IDMS. An eGFR <60 mL/min/1.73m2 for >3 months is consistent with chronic kidney disease. Refer to KDOQI guidelines for clinical interpretation. In patients with unstable renal function, e.g. those with acute kidney injury, the eGFR may not accurately reflect actual GFR. Performed By: #### CBC, LIPB, BMP, MG1, TSH, HBA1C #### [facility] [address] [place], [place] [address] MAGNESIUM Collected: 02/08/2018 Status: F Source: [place] 5:35 AM [facility] REPOSITORY TYPE CODE TESTS RESULT OUT OF REFERENCE UNITS RANGE LAB MG 1.7-2.3 mg/dL Magnesium 1.9 Performed By: #### CBC, LIPB, BMP, MG1, TSH, HBA1C #### [place] [address] TSH Collected: 02/08/2018 Status: F Source: [place] 5:35 AM [facility] REPOSITORY TYPE CODE TESTS RESULT OUT OF RANGE REFERENCE UNITS LAB TSH 0.400-5.500 uU/mL TSH 1.240 Performed By: #### CBC, LIPB, BMP, MG1, TSH, HBA1C #### [place] [address] HEMOGLOBIN A1C Collected: 02/08/2018 Status: F Source: [place] 5:35 AM [facility] REPOSITORY TYPE CODE TESTS RESULT OUT OF REFERENCE UNITS RANGE LAB HGBA1C 4.3-5.6 % High Hemoglobin A1c 6.0 LAB HBA0 mg/dL Est. Average Glucose 126 Result Comment: eAG: (Estimated average glucose) is a calculated value from HgbA1c and is associate financial representative of the average blood glucose level in the last 2-3 month period. Performed By: #### CBC, LIPB, BMP, MG1, TSH, HBA1C #### [place] [address] CK, TOTAL AND CKMB Collected: 02/08/2018 Status: F Source: [place] 5:35 AM [facility] REPOSITORY TYPE CODE TESTS RESULT OUT OF REFERENCE UNITS RANGE LAB CK 51-298 U/L Low 38 CK LAB MB <7.7 ng/mL MB 1.1 LAB CKMBRI 0.0-4.0 % CK CK MB MB % not % reported with CK <100 U/L. Performed By: #### CKCKMB, BRAYAN #### [place] [address] TROPONIN T Collected: 02/08/2018 Status: F Source: [place] 5:35 [facility] REPOSITORY TYPE CODE TESTS RESULT OUT OF REFERENCE UNITS RANGE LAB TROPT 0.000-0.029 ng/mL Troponin T <0.010 Performed By: #### CKCKMB, BRAYAN #### [address] [place], [place] [address] ECG COMPLETE W Observed: 02/08/2018 Status: F Source: [place] INTERPRETATION 1:03 AM [facility] REPOSITORY NAME : MAXX KNOTT PID : [id number] : 1950 Gender : Male Race : ORD : [id number] Procedure Date : Feb 08 2018 01:03:23 Edit Date : Feb 08 2018 22:06:29 Diagnosis:ATRIAL-SENSED VENTRICULAR-PACED RHYTHM WITH PROLONGED AV CONDUCTION ABNORMAL ECG Confirmed by SHIRLEY WALDEN MD ([id number]) on 02/08/2018 10:06:23 PM Ventricular Rate : 66 BPM Atrial Rate : 66 BPM P-R Interval : 234 ms QRS Duration : 176 ms Q-T Interval : 498 ms QTC Calculation(Bezet) : 522 ms P [place] : 40 degrees R [place] : 108 degrees T [place] : 52 degrees Test Reason : Location : [facility] : [id number] 15 Overread By : SHIRLEY WALDEN MD Edited By : SHIRLEY WALDEN MD Referred By : , Acquired by : BASIL CRAWFORD HISTORY PHYSICAL Observed: 02/07/2018 Status: COMPLETED Source: [place] 10:24 PM [facility] [place] REPOSITORY HNO ID: [id number] Author: Guero Bunn DO Service: Cardiovascular Medicine Author Type: Physician Type: HANDP Filed: 02/08/2018 1:20 PM Note Text: [facility] HISTORY AND PHYSICAL Maxx Knott [id number] PRIMARY SERVICE: Cardiology: Interventional CHIEF COMPLAINT: Chest pain HPI: This is a 67 year old male with a past history notable for: -- CABG x3 (L:LAD, V:OM, V:RCA) 2005 at [place] -- Multiple PCIs (Last was GREY to LAD 01/2017 at ) -- 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 Unfortunately, patient has been to multiple hospitals over the past year for evaluation and management of chest pain, making his records somewhat difficult to ascertain. His last catheterization in our system was in 2015 at [facility] which showed patent RHODES to LAD, and patent vein graft to RCA, with occluded vein graft to obtuse marginals. It appears that he subsequently underwent drug-eluting stent to proximal LAD one year ago at [facility]. To the best I can tell, he has been seen in an emergency department, or admitted to the hospital 11 times for chest pain, and almost an equivalent number of times for stoma site pain at the site of his prior colectomy. To date, cardiac biomarkers remain without any ischemic trend. He has undergone 2 nuclear stress tests that were without ischemia. He underwent a gated CT chest that was without clear signs of chest pathology. He has been seen numerous times by pain management for further evaluation and management of this. Patient was last evaluated at [facility] emergency department on February 02. He ruled out for cardiac biomarkers and was discharged home. Since then, patient reports that he felt well. No cardiac interventions were performed at that point in time. Patient says he's otherwise been active without any other limitations. Patient says that approximately 5 hours prior to emergency department admission, he developed 10 out of 10 crushing substernal chest pain that radiated to his back. He says that it is associated with nausea and vomiting. Occasional diaphoresis. He reports that this felt similar to his prior cardiac events in the past. He says that this feels different from his prior episodes of chest pain over the past year because it is more severe. He trialed nitroglycerin with mild improvement of his symptoms. Requesting morphine, with subsequent resolution of his symptoms. Patient frequently with stoma site pain at sign of colectomy. There does appear to be some prolapse or today, but patient currently says that he is not having any abdominal pain or symptoms at this point in time. HISTORY History obtained from: Patient PAST MEDICAL HISTORY: PAST MEDICAL HISTORY Diagnosis Date - AAA (abdominal aortic aneurysm) without rupture ([facility]) 05/13/[address] a/p - CAD (coronary artery disease) 2005 CAD s/p CABG x3 (ZVEX-[id number]-pifgbr, YLW-TQU-ggxbtl, [id number]-vmhxphzt) (2006 at [place]) - COPD (chronic obstructive pulmonary disease) ([facility]) - Current every day smoker PT SMOKES A PIPE - Diverticulitis Perforated Diverticulitis - Diverticulitis of sigmoid colon 05/15/2017 Added automatically from request for surgery [id number] - Hx of CABG - Pacemaker 02/16/2017 s/p PPM () 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 - Peritonitis (HCC) PAST SURGICAL HISTORY: PAST SURGICAL HISTORY Procedure Laterality Date - APPENDECTOMY HX - COLOSTOMY 07/2016 Diverting Loop Colostomy of the Transverse Colon - HEART SURGERY HX triple bypass 10 yrs ago - PPM IMPLANT - STENT - CORONARY FAMILY HISTORY: FAMILY HISTORY Problem Relation Age of Onset - Coronary Artery Disease Father - Hyperlipidemia Father SOCIAL HISTORY: Social History Substance Use Topics - Smoking status: Current Every Day Smoker Packs/day: 0.50 Years: 35.00 Types: Pipe, Cigarettes - Smokeless tobacco: Never Used Comment: Quit cigarettes 11-16-16 now smoking 4 pipes as of 04-18-17 - Alcohol use No MEDICATIONS: Prior to Admission Medications: oxyCODONE IR (ROXICODONE) 10 mg tab Take 10 mg by mouth three times daily as needed. ranolazine ER (RANEXA) 500 mg 12 hr tablet Take 1 tablet by mouth twice daily. ondansetron (ZOFRAN) 4 mg tablet Take 4 mg by mouth every 6 hours as needed. vitamin B complex (B COMPLEX ORAL) Take 1 tablet by mouth once daily. aspirin, enteric coated (ASPIRIN, ENTERIC COATED) 81 mg EC tablet Take 81 mg by mouth once daily. cyclobenzaprine (FLEXERIL) 10 mg tablet Take 1 tablet by mouth at bedtime as needed for Muscle Spasm. amLODIPine (NORVASC) 10 mg tablet Take 10 mg by mouth once daily. loratadine 10 mg cap Take 1 capsule every day by oral route as needed pravastatin (PRAVACHOL) 40 mg tablet Take 40 mg by mouth daily at bedtime. gabapentin (NEURONTIN) 300 mg capsule Take 2 capsules by mouth daily at bedtime for 90 days. metoprolol succinate ER (TOPROL XL) 100 mg Tb24 Take 1 tablet by mouth once daily. QUEtiapine (SEROQUEL) 200 mg tablet Take 2 tablets by mouth daily at bedtime. COMPOUNDED PRESCRIPTION One Piece Ostomy Pouch Item Type: Coloplast Sensura One Piece Non-Sterile with Window 3-4 1/2'' ?5/BoxICD 10: Prolapsed Stoma K94.09 COMPOUNDED PRESCRIPTION Paste: Convatec Stomahesive 1 tubeICD 10: Prolapsed Stoma K 94.09 MULTIVIT WITH IRON,MINERALS (MULTIVITAMIN AND MINERALS ORAL) Take 1 capsule by mouth once daily. albuterol HFA (PROVENTIL HFA, VENTOLIN HFA) 90 mcg/actuation inhaler Inhale 2 Puffs as instructed every 4 hours as needed for Wheezing/Shortness of Breath. fluticasone (FLONASE) 50 mcg/actuation nasal spray Use 1 [place] in the nose once daily as needed. nitroglycerin sublingual (NITROSTAT) 0.[address] ONE(1) TABLET UNDER TONGUE NEEDED FOR CHEST PAIN. IF NO PAIN RELIEF CALL 911 losartan (COZAAR) 100 mg tablet Take 100 mg by mouth once daily. furosemide (LASIX) 20 mg tablet Take 40 mg by mouth once daily as needed. Current hospital medications: nitroglycerin sublingual 0.4 mg tab(s) (NITROQUICK) 0.4 mg SUBLINGUAL q 5 MIN PRN [START ON 02/08/2018] ranolazine ER 500 mg tab(s) (RANEXA) 500 mg ORAL BID [START ON 02/08/2018] gabapentin 600 mg cap(s) (NEURONTIN) 600 mg ORAL AT BEDTIME ondansetron 4 mg tab(s) (ZOFRAN) 4 mg ORAL q 6 H PRN [START ON 02/08/2018] pravastatin 40 mg tab(s) (PRAVACHOL) 40 mg ORAL AT BEDTIME [START ON 02/08/2018] losartan 100 mg tab(s) (COZAAR) 100 mg ORAL DAILY [START ON 02/08/2018] QUEtiapine 400 mg tab(s) (SEROquel) 400 mg ORAL AT BEDTIME albuterol HFA 90 mcg/actuation 2 Puff (PROVENTIL HFA, VENTOLIN HFA) 2 Puff INHALATION q 4 H PRN [START ON 02/08/2018] metoprolol succinate ER 100 mg tab(s) (TOPROL XL) 100 mg ORAL AT BEDTIME [START ON 02/08/2018] amLODIPine 10 mg tab(s) (NORVASC) 10 mg ORAL DAILY [START ON 02/08/2018] aspirin, enteric coated 81 mg tab(s) 81 mg ORAL DAILY acetaminophen 650 mg tab(s) (TYLENOL) 650 mg ORAL q 4 H PRN docusate sodium 100 mg cap(s) (COLACE) 100 mg ORAL BID PRN perflutren lipid microspheres 1.1 mg/mL 1.3 mL injection ([place]) 1.3 mL INTRAVENOUS DIRECTED PRN [START ON 02/08/2018] heparin 5,000 Units injection 5,000 Units SUBCUTANEOUS q 12 H oxyCODONE IR 10 mg tab(s) (ROXICODONE) 10 mg ORAL q 6 H PRN ALLERGIES: ALLERGIES Allergen Reactions - Altaseptic Unknown - Brilinta [Ticagrelo* Unknown - Crestor [Rosuvastat* Myalgia - Hctz [Amiloride-Hyd* Swelling - Moxifloxacin Swelling - Other [place]-3s Unknown brelinta - Ramipril Swelling Other reaction(s): Facial swelling - Simvastatin Myalgia Other reaction(s): Facial swelling - Voltaren [Diclofena* Unknown COMPLETE REVIEW OF SYSTEMS: Constitutional: No weight loss, malaise or fevers. HEENT: Negative for frequent or significant headaches Respiratory: Positive for shortness of breath on exertion Cardiovascular: Positive for chest pain at rest Gastrointestinal: Negative for abdominal discomfort, blood in stools or black stools or change in bowel habits Genitourinary: No history of dysuria, frequency, or incontinence Endocrine: Negative for cold or heat intolerance, polyuria, polydipsia and goiter Hematologic: Negative for prolonged bleeding, bruising easily or swollen nodes Neurologic: No history or headaches, syncope, paralysis, seizures or tremors Integumentary: Negative for lesions, rash, and itching. PHYSICAL EXAM: BP 155/73 Pulse 61 Temp 36.9 ?C (98.4 ?F) (Oral) Resp 16 SpO2 97% General: Well appearing, no acute distress Mouth: Moist mucus membranes Neck: JVP < 8cm Cardiac: RRR. No murmurs, rubs, or gallops Pulmonary: Clear to auscultation bilaterally. No wheezing or rales GI:Normoactive bowel sounds. No hepatosplenomegaly Extremities: No LE edema. Warm, well-perfused Skin: No rash or skin discoloration Psych: Appropriate. Alert and oriented to person, time, place, and situation Neuro: No deficits grossly. No slurred speech. Moving all extremities. DATA: Laboratory: Component Latest Ref Rng AND Units 02/07/2018 02/07/2018 8:40 PM 9:40 PM WBC 3.70 - 11.00 k/uL 9.39 RBC 4.20 - 6.00 m/uL 4.52 Hemoglobin 13.0 - 17.0 g/dL 14.1 Hematocrit 39.0 - 51.0 % 40.9 MCV 80.0 - 100.0 fL 90.5 MCH 26.0 - 34.0 pG 31.2 MCHC 30.5 - 36.0 g/dL 34.5 RDW-CV 11.5 - 15.0 % 13.5 Platelet Count 150 - 400 k/uL 266 MPV 9.0 - 12.7 fL 10.1 Neut% % 68.6 Abs Neut (ANC) 1.45 - 7.50 k/uL 6.42 Lymph% % 21.2 Abs Lymph 1.00 - 4.00 k/uL 1.99 [place]% % 7.1 Abs [place] <0.87 k/uL 0.67 Eosin% % 2.7 Abs Eosin <0.46 k/uL 0.25 Baso% % 0.4 Abs Baso <0.11 k/uL 0.04 Nucleated Reds 0 /100 WBC 0.0 Absolute nRBC <0.01 k/uL <0.01 Diff Type Auto Diff Protein, Total 6.3 - 8.0 g/dL 7.2 Albumin 3.9 - 4.9 g/dL 4.4 Calcium 8.5 - 10.2 mg/dL 9.9 Bilirubin, Total 0.2 - 1.3 mg/dL 0.3 Alkaline Phosphatase 38 - 113 U/L 87 AST 14 - 40 U/L 18 Glucose 74 - 99 mg/dL 104 (H) BUN 9 - 24 mg/dL 10 Creatinine 0.73 - 1.22 mg/dL 0.97 Sodium 136 - 144 mmol/L 141 Potassium 3.7 - 5.1 mmol/L 3.5 (L) Chloride 97 - 105 mmol/L 100 CO2 22 - 30 mmol/L 26 Anion Gap 9 - 18 mmol/L 15 ALT 10 - 54 U/L 18 eGFR- >60 eGFR-All Other Races . >60 BRAYAN High Sensitivity <12 ng/L 20 (H) 19 (H) Lipase 16 - 61 U/L 12 (L) Magnesium 1.7 - 2.3 mg/dL 1.9 EKG: most recent image reviewed, most recent report reviewed, Sinus rhythm TELE: normal sinus rhythm CXR: most recent image reviewed, most recent report reviewed, clear Echocardiogram: most recent image reviewed, most recent report reviewed, 04/02/2017 - The left ventricle is mildly dilated. There is mild left ventricular hypertrophy. Left ventricular systolic function is mildly decreased. EF = 50 ? 5% (visual est.) Definity contrast used for endocardial border detection. - The right ventricle is normal in size. Right ventricular systolic function is normal. Cardiac Catheterization: most recent report reviewed [facility] 12/27/2015 - Report 1. Left ventricle: The estimated ejection fraction is 35%. Severe hypokinesis of the basal lateral myocardium. 2. LAD: Proximal vessel lesion: There is a 60% stenosis. Distal vessel lesion: There is a 100% stenosis. 3. Left circumflex: Distal vessel lesion: There is a 60% stenosis. 4. 3rd obtuse marginal: Mid-vessel lesion: There is a 60% stenosis. 5. Right coronary: Proximal vessel lesion: There is a 100% stenosis. 6. Saphenous vein graft to the proximal 3rd obtuse marginal, from the aorta: Proximal anastomosis lesion: There is a 100% stenosis. 7. RHODES graft to the LAD: Patent. 8. Saphenous vein graft to the RCA posterolateral extension, from the aorta: Patent. Minor luminal irregularities. Regadenoson SPECT 07/30/2017: CONCLUSIONS: ?1. SPECT Perfusion Study: Abnormal. ?2. There is a moderate (10-20%) fixed perfusion defect in the LCX territory c/w prior infarction. ?3. There is no scintigraphic evidence for inducible ischemia. ?4. Left ventricle is mildly dilated. The left ventricle systolic function is mildly decreased. There is basal and mid inferior and inferior lateral hypokinesis in the LCx distribution. ?5. Right ventricle is normal in size. The right ventricle systolic function is normal. GATED CT C/A/P 02/02/2018: IMPRESSION: -- Nonaneurysmal thoracic aorta. ?No evidence of acute thoracic aortic dissection. -- 12 mm right upper lobe pulmonary nodule. ?6 mm nodule left lateral costophrenic angle. ?Follow-up is needed to exclude malignancy. -- 3.2 cm hypoattenuating right thyroid nodule. ?Correlation with TFTs and follow-up elective ultrasound thyroid study is recommended as indicated. -- 3.2 cm AP infrarenal abdominal aortic aneurysm. ?No evidence of acute abdominal aortic aneurysm. ?Follow-up is recommended. -- Possible hepatic steatosis. -- Moderate fusiform thickening of the left adrenal gland. ?Stable. -- Hypodense renal cortical lesions, probable cysts. ?Consider further characterization with follow-up elective ultrasound study as indicated. -- Right-sided diverting colostomy with parastomal hernia containing loops of small bowel as previously demonstrated. -- Colonic diverticulosis without definite findings of acute diverticulitis. -- Enlarged prostate gland with nonfocal urinary bladder wall thickening. ?Correlate clinically for possible chronic bladder outlet obstruction. Hospital Problem List Reviewed. 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 Patient certainly has significant coronary disease. Many of his reported symptoms would be concerning for coronary disease. However, his symptoms are atypical in the sense that they are nonexertional, worse with deep inspiration, and not improved with nitroglycerin. High sensitivity troponin without an ischemic trend despite 5 hours of continuous chest pain. ECG without any clear ischemic changes. No clear signs of pericarditis. Overall, my suspicion for acute coronary syndrome is low given somewhat atypical symptoms, and not trending high sensitivity troponin. While I cannot completely exclude the possibility of angina, his recent clinical history make CAD seem less likely. Will admit patient to trend cardiac biomarkers, and to consider further ischemic evaluation pending overnight clinical course. Other possible explanations include musculoskeletal pain, referral pain for multiple pulmonary nodules, chronic pain, referred pain from colectomy. Active Hospital Problems Diagnosis - Other chest pain Ddx: pleuritic chest pain, CAD, musculoskeletal pain, referral pain for multiple pulmonary nodules, chronic pain, referred pain from colectomy. -- High sensitivity troponin 20 -->19. -- Trend cardiac biomarkers -- Follow-up echocardiogram - Coronary artery disease involving coronary bypass graft of [place] heart without angina pectoris -- Trend cardiac enzymes -- Continue aspirin 81 mg daily -- Continue metoprolol succinate 100 mg daily -- Continue Ranexa 500 mg twice daily -- Continue pravastatin 40 mg daily (multiple other statin intolerances). - Colostomy care (HCC) -- Continued observation for prolapse or pain - Pulmonary nodules Recent CT scan with 12 mm right upper lobe pulmonary nodule, and 6 mm left lateral costophrenic nodule. Patient with history of smoking. -- Continued outpatient follow-up. - Thyroid nodule -- 3.2 high protein UA right thyroid nodule. -- Follow-up TSH, and outpatient follow-up. - AAA (abdominal aortic aneurysm) without rupture (HCC) Stable at 3.2 cm infrarenal on recent CT imaging. - Obstructive sleep apnea CPAP Case to be discussed with staff SIGNATURE: Bijan Meza MD, MPH PAGER: [phone] DATE of SERVICE: 02/07/2018 TIME of SERVICE: 10:24 PM This note was written by the overnight or covering fellow. Please page the primary service pager. [facility] STAFF PHYSICIAN NOTE OF PERSONAL INVOLVEMENT IN CARE IMPRESSION: Patient is a 67 year old male with known CAD s/p multiple PCI procedures and stents. admitted with non-exertional chest discomfort. Difficult to get a hx of whether the sxs are similar to his pre PCI sxs. We have no films. No pain or abnormal CPK enzymes since admission. No ekg changes. 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 He wishes to go home if we think there is no immediate threat of an PA. I can't promise him anything and he understands. He cannot be studied today. Send for last cath film from . Guero Bunn DO February 08, 2018 1:20 PM I have reviewed the documentation obtained and documented by the Fellow and have reviewed and updated the problem list as appropriate. I have personally performed a face to face assessment of the patient and have personally participated in the nelson components. I have discussed the case and management of the patient's care. STAFF PHYSICIAN: Guero Bunn DO DATE OF SERVICE: February 08, 2018 TIME OF SERVICE: 1:16 PM ED NOTE Observed: 02/07/2018 Status: COMPLETED Source: [place] 9:58 PM [facility] REPOSITORY O ID: [id number] Author: Fadi Toth) MITCHELL Dowilng Service: Emergency Medicine Author Type: Registered Nurse Type: ED Notes Filed: 02/07/2018 9:59 PM Note Text: Patient's O2Sats 90% RA. Patient placed on 2lpm NC and sats up to 95%. Breath sounds clear. RT and LIP notified. CONSULT Observed: 02/07/2018 Status: COMPLETED Source: [place] 9:57 PM [facility] REPOSITORY HNO ID: [id number] Author: Keena Levi MD Service: General Surgery Author Type: Resident Type: Consults Filed: 02/08/2018 2:27 AM Note Text: SURGICAL SERVICES INITIAL CONSULT SERVICE DATE: 02/07/2018 SERVICE TIME: 12:02 AM REASON FOR CONSULT: Prolapsed stoma REQUESTING PHYSICIAN: ED PRIMARY CARE PHYSICIAN: Bijan Perez MD Subjective HISTORY OF PRESENT ILLNESS: Mr. Knott is a 67 year old male current smoker w PMHx of AAA, CAD s/p CABGx3 (2005), multiple PCI, PPM for 2nd degree heart block and bradycardia (2016), COPD, diverticulitis s/p sigmoidectomy and colostomy (07/2016) who presented to ED for chest pain. He has been seen multiple time in different EDs for this. Comes in today complaining of 10/10 crushing substernal chest pain that radiates to his back associated with nausea and vomiting. States that felt similar to his previous cardiac events. Upon further examination by ED doctors he was found to have prolapsed stoma for which CORS was consulted. Patient denies any abdominal pain. States the he has been having intermittent prolapse over the past 4 months. He says it usually prolapses after coughing or physical activity, he is always able to reduce it by pushing on it while laying flat. He usually empties his bag 2-3 times/day. Denies any changes in stool or blood, denies abdominal pain FUNCTIONAL STATUS: independent PAST MEDICAL HISTORY Diagnosis Date - AAA (abdominal aortic aneurysm) without rupture ([facility]) 05/13/[address] a/p - CAD (coronary artery disease) 2005 CAD s/p CABG x3 ([id number]-egsqvs, CWO-RIV-ccwstd, GYM-HL0-yehrdxbg) (2006 at [facility]) - COPD (chronic obstructive pulmonary disease) ([facility]) - Current every day smoker PT SMOKES A PIPE - Diverticulitis Perforated Diverticulitis - Diverticulitis of sigmoid colon 05/15/2017 Added automatically from request for surgery [id number] - Hx of CABG - Pacemaker 02/16/2017 s/p PPM () 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 - Peritonitis (HCC) PAST SURGICAL HISTORY Procedure Laterality Date - APPENDECTOMY HX - COLOSTOMY 07/2016 Diverting Loop Colostomy of the Transverse Colon - HEART SURGERY HX triple bypass 10 yrs ago - PPM IMPLANT - STENT - CORONARY FAMILY HISTORY Problem Relation Age of Onset - Coronary Artery Disease Father - Hyperlipidemia Father Social History Substance Use Topics - Smoking status: Current Every Day Smoker Packs/day: 0.50 Years: 35.00 Types: Pipe, Cigarettes - Smokeless tobacco: Never Used Comment: Quit cigarettes 11-16-16 now smoking 4 pipes as of 04-18-17 - Alcohol use No (Not in a hospital admission) Current hospital medications: nitroglycerin sublingual 0.4 mg tab(s) (NITROQUICK) 0.4 mg SUBLINGUAL q 5 MIN PRN ALLERGIES Allergen Reactions - Altaseptic Unknown - Brilinta [Ticagrelo* Unknown - Crestor [Rosuvastat* Myalgia - Hctz [Amiloride-Hyd* Swelling - Moxifloxacin Swelling - Other [place]-3s Unknown brelinta - Ramipril Swelling Other reaction(s): Facial swelling - Simvastatin Myalgia Other reaction(s): Facial swelling - Voltaren [Diclofena* Unknown COMPLETE REVIEW OF SYSTEMS: PAIN ASSESSMENT: Negative for pain, history of chronic pain, or current treatment for a chronic pain condition. GENERAL: No weight loss, malaise or fevers HEENT: Negative for frequent or significant headaches, No changes in hearing or vision, no nose bleeds or other nasal problems NECK: Negative for lumps, goiter, pain and significant neck swelling RESPIRATORY: Negative for cough, hemoptysis, wheezing, COPD, dyspnea or shortness of breath CARDIOVASCULAR: see HPI GI: see HPI : No history of dysuria, frequency or incontinence MUSCULOSKELETAL: Negative for joint pain or swelling, back pain or muscle pain SKIN: Negative for lesions, rash, and itching PSYCH: Negative for sleep disturbance, mood disorder and recent psychosocial stressors HEMATOLOGY/LYMPHOLOGY: Negative for prolonged bleeding, bruising easily or swollen nodes ENDOCRINE: Negative for cold or heat intolerance, polyuria, polydipsia and goiter NEURO: No history of headaches, syncope, paralysis, seizures or tremors Objective PHYSICAL EXAM: BP 117/58 Pulse 90 Temp (Src) 98.2 (Oral) Resp 18 SpO2 95% Physical Exam Performed GENERAL: Alert, no distress, cooperative LUNGS: non labored breathing on RA CARDIAC: RRR ABDOMEN: soft, non tender, not distended, prolapsed colostomy, pink, patent with stool in bag. EXTREMITIES: Extremities normal, no deformities, edema, clubbing or skin discoloration. Good capillary refill., No ulcers DATA: Diagnostic tests reviewed for today's visit: CBC, Coags, BMP, Mg, Phos Recent Labs 02/07/182039 WBC 9.39 HB 14.1 HCT 40.9 PLT 266 NA 141 K 3.5* CHLOR 100 CO2 26 BUN 10 CREAT 0.97 GLUC 104* CA 9.9 MG 1.9 Liver Function, Amylase, AND Lipase Recent Labs 02/07/182039 TPROT 7.2 ALB 4.4 ALT 18 AST 18 ALKPHOS 87 TBILI 0.3 LIPASE 12* Impression/Recommendations 67 year old male current smoker w PMHx of AAA, CAD s/p CABGx3 (2005), multiple PCI, PPM for 2nd degree heart block and bradycardia (2016), COPD, diverticulitis s/p sigmoidectomy and colostomy (07/2016) who presented to ED for chest pain. Currently admitted under cardiology for cardiac workup. He was found to have prolapsed stoma, easily reducible, no abdominal pain for which CORS was consulted -Stoma was reduced at bedside with no complications, patient tolerated the procedure well -No indication for emergent surgical intervention from CORS perspective -Patient needs cardiac workup prior to discussion of any possible intervention -He will probably need stoma revision in the future once he is medically cleared -Agree with continuing binder SIGNATURE: Keena Levi MD PATIENT NAME: Maxx Knott DATE: February 07, 2018 TIME: 12:27 AM PAGER/CONTACT #: [phone] HIGH SENS TROPONIN T Collected: 02/07/2018 Status: F Source: [place] 9:40 PM [facility] REPOSITORY TYPE CODE TESTS RESULT OUT OF REFERENCE UNITS RANGE LAB HSTN <12 ng/L High High Sensitivity BRAYAN 19 Result Comment: When assessing risk for acute coronary syndromes: In patients undergoing blood draw greater than or equal to 2 hours from symptom onset, with history of very low to moderate risk and non-ischemic ECG, an initial hs-Troponin T less than 12 ng/L AND a 1 hour delta hs-Troponin T less than 3 ng/L should be considered very low risk for 30 day MACE. Performed By: #### HSTNT #### [facility] [address] [place], [place] [address] XR CHEST 2V FRONTAL/LAT Observed: 02/07/2018 Status: F Source: [place] 9:08 PM [facility] REPOSITORY * * *Final Report* * * DATE OF EXAM: Feb 07 2018 9:08PM [id number] - XR CHEST 2V FRONTAL/LAT / PROCEDURE REASON: Chest pain, acute, nonspecific, low prob CAD * * * * Physician Interpretation * * * * EXAMINATION: CHEST RADIOGRAPH (2 VIEW FRONTAL and LATERAL) CLINICAL HISTORY: Chest pain, acute, nonspecific, low prob CAD, MQ: XC2_5 Comparison: 10/27/2017 RESULT: Lines, tubes, and devices: Left AICD with leads terminating in the right atrium and ventricle. Lungs and pleura: Bibasilar atelectasis. Again seen is herniation of abdominal contents through the left hemidiaphragm. No pleural effusion or pneumothorax. Pulmonary vasculature is unremarkable. Cardiomediastinal silhouette: Mildly enlarged cardiomediastinal silhouette. Other: Status post median sternotomy and CABG. Degenerative changes of the thoracic spine. IMPRESSION: Bibasilar atelectasis. No significant interval change from 10/27/2017. Prep Room Supervisor: MAGI Transcribe Date/Time: Feb 07 2018 9:13P Dictated by : BNE GONGORA MD This examination was interpreted and the report reviewed and electronically signed by: JANET LUTZ MD on Feb 07 2018 9:32PM EST [id number] ED NOTE Observed: 02/07/2018 Status: COMPLETED Source: [place] 9:05 PM [facility] REPOSITORY HNO ID: [id number] Author: Fadi KingRn) MITCHELL Dowling Service: Emergency Medicine Author Type: Registered Nurse Type: ED Notes Filed: 02/07/2018 9:05 PM Note Text: Patient to radiology with tech. CBC AND DIFFERENTIAL Collected: 02/07/2018 Status: F Source: [place] 8:40 PM [facility] REPOSITORY TYPE CODE TESTS RESULT OUT OF REFERENCE UNITS RANGE LAB WBC 3.70-11.00 k/uL WBC 9.39 LAB RBC 4.20-6.00 m/uL RBC 4.52 LAB HGB 13.0-17.0 g/dL Hemoglobin 14.1 LAB HCT 39.0-51.0 % Hematocrit 40.9 LAB MCV 80.0-100.0 fL MCV 90.5 LAB MCH 26.0-34.0 pG MCH 31.2 LAB MCHC 30.5-36.0 g/dL MCHC 34.5 LAB RDWCV 11.5-15.0 % RDW-CV 13.5 LAB PLTCT 150-400 k/uL Platelet Count 266 LAB MPV 9.0-12.7 fL MPV 10.1 LAB ANEUT % Neut% 68.6 LAB AANEUT 1.45-7.50 k/uL Abs Neut 6.42 LAB ALYMP % Lymph% 21.2 LAB AALYMP 1.00-4.00 k/uL Abs Lymph 1.99 LAB AMONO % [place]% 7.1 LAB AAMONO <0.87 k/uL Abs [place] 0.67 LAB AEOS % Eosin% 2.7 LAB AAEOS <0.46 k/uL Abs Eosin 0.25 LAB ABASO % Baso% 0.4 LAB AABASO <0.11 k/uL Abs Baso 0.04 LAB AUNRBC 0 /100 WBC NRBCs 0.0 LAB ABNRBC <0.01 k/uL Absolute nRBC <0.01 LAB DTYP DTYPE Auto Diff Performed By: #### CBCDIF, CMP, HSTNT, LIPA, MG1 #### [facility] [address] [place] [id number] COMP METABOLIC PANEL Collected: 02/07/2018 Status: F Source: [place] 8:40 PM [facility] REPOSITORY TYPE CODE TESTS RESULT OUT OF REFERENCE UNITS RANGE LAB TP 6.3-8.0 g/dL Protein, Total 7.2 LAB ALB 3.9-4.9 g/dL Albumin 4.4 LAB CA 8.5-10.2 mg/dL Calcium, Total 9.9 LAB TBIL 0.2-1.3 mg/dL Bilirubin, Total 0.3 LAB ALKP 38-113 U/L Alkaline Phosphatase 87 LAB AST 14-40 U/L AST 18 LAB GLU 74-99 mg/dL Glucose High 104 Result Comment: The [place] Diabetes Association (ADA) provides guidance for cutoff values for fasting glucose and random glucose. The ADA defines fasting as no caloric intake for at least 8 hours. Fas ting plasma glucose results between 100 to 125 mg/dL indicate increased risk for diabetes (prediabetes). Fasting plasma glucose results greater than or equal to 126 mg/dL meet the criteria for diagnosis of diabetes. In the absence of unequivocal hyperglycemia, results should be confirmed by repeat testing. In a patient with classic symptoms of hyperglycemia or hyperglycemic crisis, random plasma glucose results greater than or equal to 200 mg/dL meet the criteria for diagnosis of diabetes. Reference: Standards of Medical Care in Diabetes 2016, [place] Diabetes Association. Diabetes Care. 2016.39(Suppl 1). LAB BUN 9-24 mg/dL BUN 10 LAB CRET 0.73-1.22 mg/dL Creatinine 0.97 LAB NA 136-144 mmol/L Sodium 141 LAB K 3.7-5.1 mmol/L Potassium Low 3.5 LAB CL 97-105 mmol/L Chloride 100 LAB CO2 22-30 mmol/L CO2 26 LAB AGAP 9-18 mmol/L Anion Gap 15 LAB ALT 10-54 U/L ALT 18 LAB GFRAA eGFR- Amer. >60 LAB GFRNAA . eGFR-All Other Races >60 Result Comment: eGFR (Estimated GFR) Units of measure: mL/min/1.73 meters squared eGFR is derived from the reexpressed MDRD Study equation using the following parameters: serum creatinine, age, gender and race. The creatinine assay has been calibrated to be traceable to IDMS. An eGFR <60 mL/min/1.73m2 for >3 months is consistent with chronic kidney disease. Refer to KDOQI guidelines for clinical interpretation. In patients with unstable renal function, e.g. those with acute kidney injury, the eGFR may not accurately reflect actual GFR. Performed By: #### CBCDIF, CMP, HSTNT, LIPA, MG1 #### [facility] [address] [address] HIGH SENS TROPONIN T Collected: 02/07/2018 Status: F Source: [place] 8:40 PM [facility] REPOSITORY TYPE CODE TESTS RESULT OUT OF REFERENCE UNITS RANGE LAB HSTN <12 ng/L High High Sensitivity BRAYAN 20 Result Comment: When assessing risk for acute coronary syndromes: In patients undergoing blood draw greater than or equal to 2 hours from symptom onset, with history of very low to moderate risk and non-ischemic ECG, an initial hs-Troponin T less than 12 ng/L AND a 1 hour delta hs-Troponin T less than 3 ng/L should be considered very low risk for 30 day MACE. Performed By: #### CBCDIF, CMP, HSTNT, LIPA, MG1 #### [facility] [address] [place] [address] LIPASE Collected: 02/07/2018 Status: F Source: [place] 8:40 PM [facility] REPOSITORY TYPE CODE TESTS RESULT OUT OF REFERENCE UNITS RANGE LAB LIPA 16-61 U/L Low Lipase 12 Performed By: #### CBCDIF, CMP, HSTNT, LIPA, MG1 #### [facility] [address] [place] [address] MAGNESIUM Collected: 02/07/2018 Status: F Source: [place] 8:40 PM [facility] REPOSITORY TYPE CODE TESTS RESULT OUT OF REFERENCE UNITS RANGE LAB MG 1.7-2.3 mg/dL Magnesium 1.9 Performed By: #### CBCDIF, CMP, HSTNT, LIPA, MG1 #### [facility] [address] [phone] ED NOTE Observed: 02/07/2018 Status: COMPLETED Source: [place] 8:39 PM [facility] REPOSITORY HNO ID: [id number] Author: Fadi (Rn) MITCHELL Dowling Service: Emergency Medicine Author Type: Registered Nurse Type: ED Notes Filed: 02/07/2018 9:26 PM Note Text: ABCs WNL, NAD and NWB. AANDO x 3, AMEZQUITA, equal and appropriate strength, no numbness or tingling, no dizziness, speech normal, no facial droop, no headache. Reports SOB and chest pain since 1.5 hours before arrival. Reports nausea with 1 episode of emesis. Reports abdominal pain with prolapsed ostomy. LIP notified of assessment findings. VSS on RA, patient on continuous monitoring. Patient reports no needs at this time. ? - Nursing Plan of Care initiated- -Monitor Patient's Vital signs for changes in condition -Monitor patient for changes in pain -Continue to monitor for safety and comfort; bed rails x 2, bed low and locked -Call alvarez in reach -Education given on current Plan of Care ? ED PROV NOTE Observed: 02/07/2018 Status: COMPLETED Source: [place] 7:39 PM [facility] [place] REPOSITORY O ID: [id number] Author: Beata Rocha MD Service: Emergency Medicine Author Type: Physician Type: ED Provider Notes Filed: 02/08/2018 3:58 PM Note Text: ED Provider Note Patient Name: Maxx Knott SERVICE DATE: 02/07/18 History Patient presents with: Chest Pain Shortness of Breath Abdominal Pain History provided by: Patient and medical records 67-year-old male with a history of CAD status post CABG with stents, COPD, AAA stable on most recent scan 02/02/18, pacemaker, right sided colostomy with chronically prolapsed stoma, present for chest pain and stomach pain. Patient reports chest pain is substernal, pressure-like, 01/07, associated with shortness of breath, nausea, vomiting. States this feels similar to prior pains including pain when he had cardiac events. As this pain frequently, most recently proximal one week ago when he was admitted for the same thing. Patient also reports that his stoma is prolapse and hurts. He's had this issue before, but states if he coughs or has retching, his stoma prolapses becomes painful. Denies change in output. No generalized abdominal pain. Denies darkening or change in color of the stoma. 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 - Peritonitis (HCC) PAST SURGICAL HISTORY Procedure Laterality Date - APPENDECTOMY HX - COLOSTOMY 07/2016 Diverting Loop Colostomy of the Transverse Colon - HEART SURGERY HX triple bypass 10 yrs ago - PPM IMPLANT - STENT - CORONARY FAMILY HISTORY Problem Relation Age of Onset - Coronary Artery Disease Father - Hyperlipidemia Father Social History Social History Main Topics - Smoking status: Current Every Day Smoker Packs/day: 0.50 Years: 35.00 Types: Pipe, Cigarettes - Smokeless tobacco: Never Used Comment: Quit cigarettes 11-16-16 now smoking 4 pipes as of 04-18-17 - Alcohol use No - Drug use: No - Sexual activity: Not Currently ALLERGIES Allergen Reactions - Altaseptic Unknown - Brilinta [Ticagrelo* Unknown - Crestor [Rosuvastat* Myalgia - Hctz [Amiloride-Hyd* Swelling - Moxifloxacin Swelling - Other [place]-3s Unknown brelinta - Ramipril Swelling Other reaction(s): Facial swelling - Simvastatin Myalgia Other reaction(s): Facial swelling - Voltaren [Diclofena* Unknown Review of Systems Constitutional: Negative for chills and fever. Eyes: Negative for visual disturbance. Respiratory: Positive for shortness of breath. Negative for cough. Cardiovascular: Positive for chest pain. Negative for leg swelling. Gastrointestinal: Positive for abdominal pain, nausea and vomiting. Genitourinary: Negative for dysuria. Musculoskeletal: Negative for back pain and neck pain. Skin: Negative for rash. Neurological: Negative for weakness, numbness and headaches. Psychiatric/Behavioral: The patient is not nervous/anxious. All other systems reviewed and are negative. Physical Exam BP 187/80 Pulse 66 Temp (Src) 98.2 (Oral) Resp 20 SpO2 96% Physical Exam Constitutional: He is oriented to person, place, and time. He appears well-developed and well-nourished. No distress. HENT: Head: Normocephalic and atraumatic. Eyes: No scleral icterus. Neck: Neck supple. Cardiovascular: Normal rate, regular rhythm, normal heart sounds and intact distal pulses. Pulmonary/Chest: Effort normal and breath sounds normal. No respiratory distress. Abdominal: Soft. He exhibits no distension. There is tenderness (Prolapsed stoma tenderness). Right-sided abdomen with colostomy, normal-appearing brown stool, intestinal prolapse present without evidence of strangulation or dusky appearing mucosa Musculoskeletal: He exhibits no edema. Neurological: He is alert and oriented to person, place, and time. Skin: Skin is warm and dry. Capillary refill takes less than 2 seconds. He is not diaphoretic. Psychiatric: He has a normal mood and affect. Nursing note and vitals reviewed. Diagnostic Testing ED Labs Ordered and Reviewed COMP METABOLIC PANEL - Abnormal; Notable for the following: Result Value Ref Range Glucose 104 (*) 74 - 99 mg/dL Potassium 3.5 (*) 3.7 - 5.1 mmol/L All other components within normal limits HIGH SENSITIVITY TROPONIN T - Abnormal; Notable for the following: BRAYAN High Sensitivity 20 (*) <12 ng/L All other components within normal limits HIGH SENSITIVITY TROPONIN T - Abnormal; Notable for the following: BRAYAN High Sensitivity 19 (*) <12 ng/L All other components within normal limits LIPASE BLD - Abnormal; Notable for the following: Lipase 12 (*) 16 - 61 U/L All other components within normal limits CBC + DIFF MAGNESIUM BLD Procedures ED Course / Clinical Impression ED Course as of Feb 07 2318 Bertt Sinha) Nicolette's Documentation Maddy Feb 07, [id number] Bibasilar atelectasis. No significant interval change from 10/27/2017. 2200 Surgery to see 2203 Cards to see Clinical Impressions as of Feb 07 2318 Chest pain, unspecified type Intestinal stoma prolapse (HCC) MDM / Disposition / Plan MDM Patient presenting with chest pain with concerning story, along with prolapsed stoma. Chart review reveals patient has had numerous ED visits and recent normal stress test at the beginning of the year, but did have recommendations for a repeat catheter that does not appear to have been done at this point. EKG nonischemic, labs without significant abnormality except elevated high sensitivity troponin that were remained stable on repeat. Patient's common recurrence of the same pain was reassuring, however the story was concerning and patient high risk given his history. Cardiology consulted, with recommendations pending at time of sign out.. Patient's stoma did not appear strangulated, was reduced with application of sugar and mild pressure. Colorectal surgery consulted, recommended follow-up as an outpatient given the chronicity and lack of ischemia. TRANSFER OF CARE: The patients care was turned over to Dr. Guillory at 10:30 PM. The care and plan was discussed with the oncoming provider. Items pending that need to be checked : Consult recommendations. Tentative impression of patient: Unspecified chest pain, stoma prolapse SIGNATURE: MD Brett Mathew) MD Nicolette Resident 02/07/18 3204 Attending Note I evaluated the patient and personally participated in the nelson components. I agree with the resident's findings and plan as documented and have discussed the case and management of the patient's care with the resident. 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 Exam: VSS, mild distress 2/2 pain, no JVD, CTAB, RRR, distal pulses intact, + prolapsed ostomy that is reducible with associated TTP EKG: atrial sensed ventricular paced, normal intervals and axis, no ST elevation or depression 07/30/17 NM cardiac perfusion test: CONCLUSIONS: ?1. SPECT Perfusion Study: Abnormal. ?2. There is a moderate (10-20%) fixed perfusion defect in the LCX territory c/w prior infarction. ?3. There is no scintigraphic evidence for inducible ischemia. ?4. Left ventricle is mildly dilated. The left ventricle systolic function is mildly decreased. There is basal and mid inferior and inferior lateral hypokinesis in the LCx distribution. ?5. Right ventricle is normal in size. The right ventricle systolic function is normal. ?6. Functional capacity N/A (pharmacological). ?7. This is an intermediate risk scan. ?Gated Stress FBP ?LVEF % 43 04/02/17 ECHO: CONCLUSIONS: - Technically difficult exam due to body habitus. - Exam indication: Chest Pain - The left ventricle is mildly dilated. There is mild left ventricular hypertrophy. Left ventricular systolic function is mildly decreased. EF = 50 ? 5% (visual est.) Definity contrast used for endocardial border detection. - The right ventricle is normal in size. Right ventricular systolic function is normal. - The patient has not had a prior CC echocardiographic exam for comparison. 02/02/18 CTA aorta: IMPRESSION: ? Nonaneurysmal thoracic aorta. ?No evidence of acute thoracic aortic dissection. ? 12 mm right upper lobe pulmonary nodule. ?6 mm nodule left lateral costophrenic angle. ?Follow-up is needed to exclude malignancy. ? 3.2 cm hypoattenuating right thyroid nodule. ?Correlation with TFTs and follow-up elective ultrasound thyroid study is recommended as indicated. ? 3.2 cm AP infrarenal abdominal aortic aneurysm. ?No evidence of acute abdominal aortic aneurysm. ?Follow-up is recommended. ? Possible hepatic steatosis. ? Moderate fusiform thickening of the left adrenal gland. ?Stable. ? Hypodense renal cortical lesions, probable cysts. ?Consider further characterization with follow-up elective ultrasound study as indicated. ? Right-sided diverting colostomy with parastomal hernia containing loops of small bowel as previously demonstrated. ? Colonic diverticulosis without definite findings of acute diverticulitis. ? Enlarged prostate gland with nonfocal urinary bladder wall thickening. ?Correlate clinically for possible chronic bladder outlet obstruction. Reducible recurrent prolapsing ostomy, d/w CORS chief, outpatient f/u with Dr Mcpherson, no emergent intervention indicated at this time Cardiology consulted for recurrent CP, chronically elevated HS troponins --plan for admit to imaging service for possible cath Signature: Beata Rocha MD Date: 02/08/2018 Time: 3:54 PM Beata Rocha MD 02/08/18 1558 ED NOTE Observed: 02/07/2018 Status: COMPLETED Source: [place] 7:22 PM [facility] [place] REPOSITORY HNO ID: [id number] Author: Fadi KingRn) MITCHELL Dowling Service: Emergency Medicine Author Type: Registered Nurse Type: ED Notes Filed: 02/07/2018 7:23 PM Note Text: Report received from Parul GONZALEZ. ED NOTE Observed: 02/07/2018 Status: COMPLETED Source: [place] 7:01 PM [facility] [place] REPOSITORY HNO ID: [id number] Author: Parul Toth) MITCHELL Mccain Service: Emergency Medicine Author Type: Registered Nurse Type: ED Notes Filed: 02/07/2018 7:02 PM Note Text: Pt currently resting in bed in no acute distress. Reports midsternal chest tightness x1 hour and pain at ostomy site. Ostomy noted to be protruding out of abdomen which he states is abnormal for him, also occurred ~1 hour ago per pt and states happened while he was trying to go to the bathroom. Pt hooked up to continuous heart monitor AND pulse ox. Updated on POC. Bed locked and in lowest position, call light within reach. NAD noted. Will continue to monitor patient. ED NOTE Observed: 02/07/2018 Status: COMPLETED Source: [place] 5:52 PM [facility] REPOSITORY HNO ID: [id number] Author: Kyara Cervantes (Rn) MITCHELL Nance Service: Emergency Medicine Author Type: Registered Nurse Type: ED Notes Filed: 02/07/2018 5:53 PM Note Text: Pt c/o chest laura with shortness of breath over the last hour. Pt also c/o pain at ostomy site PROGRESS Observed: 02/06/2018 Status: COMPLETED Source: [place] 10:41 AM [facility] REPOSITORY HNO ID: [id number] Author: Eligio (Rn) MITCHELL Banks Service: (none) Author Type: Registered Nurse Type: Progress Notes Filed: 02/06/2018 10:42 AM Note Text: Unable to reach patient at this time, VM box is full. Will await response from letter sent 02/01/18. Eligio Banks RN PROGRESS Observed: 02/05/2018 Status: COMPLETED Source: [place] 2:24 PM [facility] REPOSITORY HNO ID: [id number] Author: Eligio KingRn) MITCHELL Banks Service: (none) Author Type: Registered Nurse Type: Progress Notes Filed: 02/06/2018 10:47 AM Note Text: MRI ASSISTANT EMERGENCY DEPARTMENT FOLLOW UP INITIAL CONTACT Provider Action/FYI: Unable to reach patient SUMMARY: -Patient discharged from [facility] ED on 02/03/18. -Follow up appointment: NEEDS. -Medication review: NEEDS. -Presented with: Chest Pain CONCERNS: Unable to reach NEW MEDICATIONS: None MEDS HELD/DISCONTINUED: None BRIEF ED COURSE: Due the patient's chest pain and the radiation to the back, we are concerned about possible dissection considering the patient's hypertension. The CTA was ordered. CTA was negative for any dissection. The patient be admitted for evaluation of his chest pain. Initially, an EKG that was ordered for the patient was found in the wrong name second EKG was done which showed the patient is ventricularly paced without any ST segment elevation or depression. Initial troponin is negative x1. He had already taken aspirin at home, he was given nitro without relief and thus given morphine. He was foudn to have a prolapsed ostomy, ice was placed and this was reduced without issue after placement in trendelenburg. The patient is significantly at high risk considering his previous MIs and thus will need to be admitted for cardiac evaluation. ? ? The patient was ADMITTED TO: Regular nursing floor. Condition at time of disposition: stable ? SIGNATURE: Ron Emmanuel MD ? Ron (Res) MD Lien Resident 02/03/18 1873 ? Attending Note I evaluated the patient and personally participated in the nelson components. I agree with the resident's findings and plan as documented and have discussed the case and management of the patient's care with the resident. ? Signature: Kajal Laurent MD Date: 02/03/2018 Time: 3:[address] Birch returned page. States patient is to be DC'd from ED and inpatient bed to be cancelled. Waiting on DC instructions. ?2:56 PM Eligio Banks RN CNPTOUTREACH Observed: 02/05/2018 Status: COMPLETED Source: [place] 12:00 AM [facility] REPOSITORY Patient Outreach (INTMMN) MAXX KNOTT ([id number]) 1950 M Date Time Provider Department 02/05/18 ELIGIO BANKS (MITCHELL) INTPRATIBHA During your visit today, we recorded the following information about you: Eligio Banks RN, RN 02/06/2018 10:47 AM Signed MRI ASSISTANT EMERGENCY DEPARTMENT FOLLOW UP INITIAL CONTACT Provider Action/FYI: Unable to reach patient SUMMARY: -Patient discharged from [facility] ED on 02/03/18. -Follow up appointment: NEEDS. -Medication review: NEEDS. -Presented with: Chest Pain CONCERNS: Unable to reach NEW MEDICATIONS: None MEDS HELD/DISCONTINUED: None BRIEF ED COURSE: Due the patient's chest pain and the radiation to the back, we are concerned about possible dissection considering the patient's hypertension. The CTA was ordered. CTA was negative for any dissection. The patient be admitted for evaluation of his chest pain. Initially, an EKG that was ordered for the patient was found in the wrong name second EKG was done which showed the patient is ventricularly paced without any ST segment elevation or depression. Initial troponin is negative x1. He had already taken aspirin at home, he was given nitro without relief and thus given morphine. He was foudn to have a prolapsed ostomy, ice was placed and this was reduced without issue after placement in trendelenburg. The patient is significantly at high risk considering his previous MIs and thus will need to be admitted for cardiac evaluation. ? ? The patient was ADMITTED TO: Regular nursing floor. Condition at time of disposition: stable ? SIGNATURE: Ron Emmanuel MD ? Ron (Res) MD Lien Resident 02/03/18 1292 ? Attending Note I evaluated the patient and personally participated in the nelson components. I agree with the resident's findings and plan as documented and have discussed the case and management of the patient's care with the resident. ? Signature: Kajal Laurent MD Date: 02/03/2018 Time: 3:[address] Birch returned page. States patient is to be DC'd from ED and inpatient bed to be cancelled. Waiting on DC instructions. ?2:56 PM MITCHELL Pierce RN, RN 02/06/2018 10:42 AM Signed Unable to reach patient at this time, VM box is full. Will await response from letter sent 02/01/18. Eligio Banks RN Allergies As of Date: 02/05/2018 Noted Allergy Reaction ALTASEPTIC 12/17/2016 16 - Unknown BRILINTA (TICAGRELOR) 08/09/2017 16 - Unknown CRESTOR (ROSUVASTATIN CALCIUM) 12/17/2016 17 - Myalgia HCTZ (AMILORIDE-HYDROCHLOROTHIAZI*12/17/2016 7 - Swelling MOXIFLOXACIN 7 - Swelling OTHER OMEGA-3S 07/06/2017 16 - Unknown Comments: brelinta RAMIPRIL 12/17/2016 7 - Swelling Comments: Other reaction(s): Facial swelling SIMVASTATIN 12/17/2016 17 - Myalgia Comments: Other reaction(s): Facial swelling VOLTAREN (DICLOFENAC SODIUM) 12/17/2016 16 - Unknown Date Reviewed: 02/02/2018 Reviewed by: Antonio Toth) MITCHELL Dixon - Fully Assessed Reason for Visit: Field Specialist Ed Follow Up [3618] Prescriptions as of 02/05/2018 Sig: RANOLAZINE ER 500 MG TABLET,E* Take 1 tablet by mouth twice * ONDANSETRON HCL 4 MG TABLET Take 4 mg by mouth every 6 ho* B COMPLEX ORAL Take 1 tablet by mouth once d* ASPIRIN 81 MG TABLET,DELAYED * Take 81 mg by mouth once dominik* CYCLOBENZAPRINE 10 MG TABLET Take 1 tablet by mouth at bed* AMLODIPINE 10 MG TABLET Take 10 mg by mouth once dominik* LORATADINE 10 MG CAPSULE Take 1 capsule every day by o* PRAVASTATIN 40 MG TABLET Take 40 mg by mouth daily at * GABAPENTIN 300 MG CAPSULE Take 2 capsules by mouth dominik* METOPROLOL SUCCINATE ER 100 M* Take 1 tablet by mouth once d* QUETIAPINE 200 MG TABLET Take 2 tablets by mouth daily* COMPOUNDED PRESCRIPTION One Piece Ostomy Pouch Item T* COMPOUNDED PRESCRIPTION Paste: Convatec Stomahesive * MULTIVITAMIN AND MINERALS ORAL Take 1 capsule by mouth once * ALBUTEROL SULFATE HFA 90 MCG/* Inhale 2 Puffs as instructed * FLUTICASONE 50 MCG/ACTUATION * Use 1 [place] in the nose once * NITROGLYCERIN 0.4 MG SUBLINGU* PLACE ONE(1) TABLET UNDER TON* LOSARTAN 100 MG TABLET Take 100 mg by mouth once roddy* FUROSEMIDE 20 MG TABLET Take 40 mg by mouth once dominik* Problem List As Of Date 02/05/2018 Noted Resolved 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 Chest pain [R07.9] INVALID FOR*12/02/2017 Priority: A More... Hypertensive crisis [I16.9] INVALID FOR* Priority: B More... Healthcare maintenance [Z00.00] INVALID FOR* Priority: M More... Malnutrition of mild degree (HCC) [E44.1] INVALID FOR* Priority: L More... CHF exacerbation (HCC) [I50.9] INVALID FOR*12/02/2017 Diverticulitis of sigmoid colon [K57.32] INVALID FOR* Class: Recurrent More... Chronic systolic congestive heart failure (HCC)*INVALID FOR* Priority: J More... CAD (coronary artery disease) [I25.10] INVALID FOR* Priority: K More... Hypertensive heart disease with congestive hear*INVALID FOR* Priority: K Hypocalcemia [E83.51] INVALID FOR*06/19/2017 Hypernatremia [E87.0] INVALID FOR*06/19/2017 Hypokalemia [E87.6] INVALID FOR*06/19/2017 Parastomal hernia without obstruction or gangre*INVALID FOR* Abdominal aortic aneurysm without rupture (HCC)*INVALID FOR* Renal cysts, acquired, bilateral [N28.1] INVALID FOR* Arthritis [M19.90] INVALID FOR* Anxiety disorder [F41.9] INVALID FOR* Essential hypertension [I10] INVALID FOR* Nicotine use disorder, F17.2 [F17.200] INVALID FOR* Melena [K92.1] INVALID FOR* Fall [W19.XXXA] INVALID FOR* Abdominal pain [R10.9] INVALID FOR* Peristomal hernia [K46.9] INVALID FOR* Prolapse of intestine [K63.4] INVALID FOR*12/02/2017 Chronic narcotic use [F11.90] INVALID FOR* Chest pain [R07.9] INVALID FOR*12/02/2017 Chest pain [R07.9] INVALID FOR*02/03/2018 Encounter Status:Closed by ELIGIO BANKS on 02/06/18 ED NOTE Observed: 02/03/2018 Status: COMPLETED Source: [place] 4:15 PM CLINIC OTHER CAMPUS REPOSITORY HNO ID: [id number] Author: Herlinda KingRn) MITCHELL Del Real Service: Emergency Medicine Author Type: Registered Nurse Type: ED Notes Filed: 02/03/2018 4:16 PM Note Text: Called [phone] to help me print discharge instructions. Stephanie JEAN and Kenisha FACULTY ADMINISTRATOR NOTE Observed: 02/03/2018 Status: COMPLETED Source: [place] 3:24 PM [facility] REPOSITORY HNO ID: [id number] Author: Herlinda KingRn) MITCHELL Del Real Service: Emergency Medicine Author Type: Registered Nurse Type: ED Notes Filed: 02/03/2018 3:25 PM Note Text: Dr Birch repaged for discharge instructions ED NOTE Observed: 02/03/2018 Status: COMPLETED Source: [place] 2:43 PM [facility] [place] REPOSITORY HNO ID: [id number] Author: Sandra Miller RN Service: Emergency Medicine Author Type: Registered Nurse Type: ED Notes Filed: 02/03/2018 2:56 PM Note Text: Dr. Birch returned page. States patient is to be DC'd from ED and inpatient bed to be cancelled. Waiting on DC instructions. ED NOTE Observed: 02/03/2018 Status: COMPLETED Source: [place] 2:35 PM [facility] [place] REPOSITORY HNO ID: [id number] Author: Sandra Miller RN Service: Emergency Medicine Author Type: Registered Nurse Type: ED Notes Filed: 02/03/2018 2:55 PM Note Text: Paged Dr. Birch regarding patient's DC. CNDS Observed: 02/03/2018 Status: COMPLETED Source: [place] 2:20 PM [facility] OTHER CAMPUS REPOSITORY HNO ID: [id number] Author: Lorraine Ferrell Service: Hospital Medicine Author Type: Physician Type: Discharge Summaries Filed: 02/03/2018 2:21 PM Note Text: DISCHARGE SUMMARY PATIENT NAME: Maxx Knott Code Status: Not on file Highest Readmission Risk Score: 32 The 30 day readmissions risk score is derived from an internally validated risk model which evaluates patient level characteristics, utilization history, medication orders and lab results up until the day of discharge. Patients with a score of 40 or above are considered highest risk for readmission. Specific patient level drivers will be listed at the bottom of the summary. Admission Information Admission Information ADMIT DATE: 02/02/2018 DISCHARGE DATE: 02/03/18 MY DOCTORS AND MEDICAL TEAM: My Main Hospital Doctor: Lorraine Ferrell Primary Care Provider: Bijan Perez MD My Medical Team Members: Treatment Team: Attending Provider: Lorraine Ferrell Consulting: Gene Mejía Primary Service: [place] Sound Red MY CONDITION AT DISCHARGE: Stable REASON I WAS IN THE HOSPITAL: Chest Pain SUMMARY OF WHAT HAPPENED WHILE I WAS IN THE HOSPITAL: Pt is a 67 yo CM who came with chest pain. He was admitted for further evaluation. His troponins had been negative. He was seen and assessed by cardiology, who felt that his pain was not of cardiac origin, and they recommended no further workup. Patient is feeling well and can be discharge to home. OTHER PROBLEMS/DIAGNOSIS: Active Problems: Chronic systolic congestive heart failure (HCC) CAD (coronary artery disease) Diverticulitis of sigmoid colon Essential hypertension Resolved Problems: Chest pain OPERATIONS PERFORMED WHILE IN THE HOSPITAL: None IMPORTANT TEST/PROCEDURES: No procedures performed TEST RESULTS NOT AVAILABLE AT THIS TIME: No pending results Discharge Disposition Discharge Disposition: Home With Self Care Additional Provider to Provider Information: Active Hospital Problems as of 02/03/2018 Noted - Resolved Hospital Chronic systolic congestive heart failure (HCC) 05/15/2017 - Present Overview EF=47% April 2017 Added automatically from request for surgery [id number] CAD (coronary artery disease) 05/16/2017 - Present Overview Nuclear stress test >>No ischemia. EF=47% 2017 Essential hypertension 07/22/2017 - Present Diverticulitis of sigmoid colon 05/15/2017 - Present Overview Added automatically from request for surgery [id number] Resolved Hospital Problems as of 02/03/2018 Noted - Resolved Hospital Chest pain 02/03/2018 - 02/03/2018 Transitions of Care Critical Issues: LABS AND PROCEDURES PENDING AT DISCHARGE: FOLLOW-UP APPOINTMENTS ALREADY SCHEDULED WITH A [facility] PROVIDER: No future appointments. ALLERGIES Allergen Reactions - Altaseptic Unknown - Brilinta [Ticagrelo* Unknown - Crestor [Rosuvastat* Myalgia - Hctz [Amiloride-Hyd* Swelling - Moxifloxacin Swelling - Other [place]-3s Unknown brelinta - Ramipril Swelling Other reaction(s): Facial swelling - Simvastatin Myalgia Other reaction(s): Facial swelling - Voltaren [Diclofena* Unknown DISCHARGE MEDICATION: Current Discharge Medication List CONTINUE these medications which have NOT CHANGED ranolazine ER (RANEXA) 500 mg Take 500 mg by mouth twice daily. Qty: 60 tablet Refills: 0 ondansetron (ZOFRAN) 4 mg Take 4 mg by mouth every 6 hours as needed. vitamin B complex (B COMPLEX ORAL) 1 tablet Take 1 tablet by mouth once daily. aspirin, enteric coated (ASPIRIN, ENTERIC COATED) 81 mg Take 81 mg by mouth once daily. cyclobenzaprine (FLEXERIL) 10 mg Take 10 mg by mouth at bedtime as needed for Muscle Spasm. Associated Diagnoses:Chronic low back pain, unspecified back pain laterality, with sciatica presence unspecified amLODIPine (NORVASC) 10 mg Take 10 mg by mouth once daily. loratadine 10 mg cap Take 1 capsule every day by oral route as needed pravastatin (PRAVACHOL) 40 mg Take 40 mg by mouth daily at bedtime. gabapentin (NEURONTIN) 600 mg Take 600 mg by mouth daily at bedtime. Qty: 90 capsule Refills: 0 Associated Diagnoses:Chronic low back pain, unspecified back pain laterality, with sciatica presence unspecified metoprolol succinate ER (TOPROL XL) 100 mg Take 100 mg by mouth once daily. Qty: 90 tablet Refills: 4 QUEtiapine (SEROquel) 400 mg Take 400 mg by mouth daily at bedtime. Qty: 60 tablet Refills: 0 !! COMPOUNDED PRESCRIPTION One Piece Ostomy Pouch Item Type: Coloplast Sensura One Piece Non-Sterile with Window 3-4 1/2'' ?5/Box ICD 10: Prolapsed Stoma K94.09 Qty: 1 Box Refills: 0 !! COMPOUNDED PRESCRIPTION Paste: Convatec Stomahesive 1 tube ICD 10: Prolapsed Stoma K 94.09 Qty: 1 Tube Refills: 0 MULTIVIT WITH IRON,MINERALS (MULTIVITAMIN AND MINERALS ORAL) 1 capsule Take 1 capsule by mouth once daily. albuterol HFA (PROVENTIL HFA, VENTOLIN HFA) 2 Puffs Inhale 2 Puffs as instructed every 4 hours as needed for Wheezing/Shortness of Breath. fluticasone (FLONASE) 1 [place] Use 1 [place] in the nose once daily as needed. nitroglycerin sublingual (NITROSTAT) 0.[address] ONE(1) TABLET UNDER TONGUE NEEDED FOR CHEST PAIN. IF NO PAIN RELIEF CALL 911 Qty: 25 tablet Refills: 0 losartan (COZAAR) 100 mg Take 100 mg by mouth once daily. furosemide (LASIX) 40 mg Take 40 mg by mouth once daily as needed. !! - Potential duplicate medications found. Please discuss with provider. Discharge Physical Exam: VITAL SIGNS: BP 136/67 Pulse 60 Temp (!) 37.3 ?C (99.1 ?F) (Oral) Resp 15 Ht 172.7 cm (5' 8) Wt 88.5 kg (195 lb) SpO2 98% BMI 29.65 kg/m? GENERAL: Alert, no distress, cooperative LUNGS: Lungs clear to auscultation, Good diaphragmatic excursion CARDIAC: Normal S1 and S2; no rubs, murmurs, or gallops The patient's risk for 30-day readmission is determined using the following contributing factors: Pt variables contributing to increased readmission risk: 15 Most Recent BUN Result 14 Active Medication Orders 12 Number of Previous ED Visits (6 mos.) 10 Number of Hospitalizations (12 mos.) 9.3 First Resulted Calcium During Admission 1 Previous ED Visit (6 mos.)? 1 Insurance - Medicare 1 Discharge Disposition - Home 1 Active Anticoagulant TIME OF CARE: Discharge Management: I personally spent greater than 30 minutes involved in the discharge management of this patient. SIGNATURE: Lorraine Dodge MD PAGER/CONTACT #: DATE: February 03, 2018 TIME: 2:20 PM NUTRITION Observed: 02/03/2018 Status: COMPLETED Source: [place] 11:37 AM CLINIC OTHER CAMPUS REPOSITORY O ID: [id number] Author: Samantha Granda RD Service: Nutrition Therapy Author Type: Registered Dietitian Type: Nutrition Filed: 02/03/2018 11:44 AM Note Text: NUTRITION THERAPY NOTE SERVICE DATE: 02/03/2018 SERVICE TIME: 11:37 AM Intervention: Education on Heart Healthy diet as appropriate Patient very lethargic at present. Unable to stay awake during conversation Discharge Nutrition Recommendations: To be determined Chart reviewed for MD consult for heart healthy diet education Per HPI: 67-year-old male presented for evaluation of chest pain he stated the chest pain started suddenly about one hour prior to arrival 02/02/18 he stated that is pressure-like in nature he had some nausea some vomiting some diaphoresis. ?As well as some lightheadedness. ?He does have a history of PA ?2 as well as CABG. ?Stated he also had protrusion of the colostomy bag to the right lower quadrant supposed to get this fixed but has not followed up. He stated the pain was also going to his back, no tearing sensation. Cardiology consulted and signed off. Wound center consulted for colostomy care. Met with patient at bedside unable to converse with patient kept falling asleep. Will attempt education at later date. Current Diet Order DIET HEART HEALTHY Order Specific Question: Heart Healthy Answer: 2 GM SODIUM (<200 MG CHOL / LOW SAT FAT) Nutritional Intake Prior to Admission: Unable to determine Anthropometrics: Height: 172.7 cm (5' 8) Admission Weight: 88.5 kg (195 lb) Current Weight: 88.5 kg (195 lb) Body mass index is 29.65 kg/m?. overweight Weight has decreased by 4.5 kg over 6 months representing 4.8 % weight change not significant Last Wt 02/02/18 : 88.5 kg (195 lb) 12/02/17 : 92.2 kg (203 lb 4.2 oz) 11/30/17 : 87.5 kg (193 lb) 11/19/17 : 87.5 kg (193 lb) 11/18/17 : 86.2 kg (190 lb) ~ 3 months 10/27/17 : 88.5 kg (195 lb) 10/09/17 : 88.5 kg (195 lb) 09/22/17 : 88 kg (194 lb) 09/20/17 : 88.1 kg (194 lb 3.2 oz) 09/14/17 : 88.5 kg (195 lb) 09/09/17 : 88.5 kg (195 lb) 08/28/17 : 87.1 kg (192 lb) 08/16/17 : 86.4 kg (190 lb 8 oz) 08/09/17 : 90.3 kg (199 lb) 07/30/17 : 90.8 kg (200 lb 2.8 oz) 07/21/17 : 90.7 kg (200 lb) 07/14/17 : 90.7 kg (200 lb) 07/06/17 : 90.7 kg (200 lb) 06/25/17 : 90.7 kg (200 lb) 06/17/17 : 93 kg (205 lb) ~ 6 months Recent Labs 02/03/18 0432 GLUC 135* BUN 15 CREAT 0.97 NA 141 K 3.1* CHLOR 103 CO2 34* ALB 3.2* HB 13.0* HCT 38.4* WBC 9.06 MNT Billing Type: Initial Assess/15 min 2 units SIGNATURE: Samantha Granda RD, LD PATIENT NAME: Maxx Knott DATE: February 03, 2018 TIME: 11:37 AM PAGER: [phone] CONSULT Observed: 02/03/2018 Status: COMPLETED Source: [place] 10:43 AM [facility] [place] REPOSITORY HNO ID: [id number] Author: Heri Santana Service: Cardiovascular Medicine Author Type: Physician Type: Consults Filed: 02/03/2018 11:06 AM Note Text: CONSULT: CARDIOLOGY SERVICE SERVICE DATE: 02/03/2018 SERVICE TIME: 10:43 AM CONSULTING PHYSICIAN: Heri Santana MD, [facility] PCP: Bijan Perez MD ATTENDING: Lorraine Ferrell REASON FOR CONSULT: Chest Pain Subjective CHIEF COMPLAINT: No admission diagnoses are documented for this encounter. HISTORY OF PRESENT ILLNESS: Mr. Knott is a 67 year old male who presents with chest pain. He has a known hx of CAD (s/p CABG x13 yrs ago, last PCI 01/2017 GREY to prox LAD), ischemic systolic CHF (LVEF 47%), CBP, diverticulitis complicated by a perforation (July 2016), s/p Chad's with transverse loop colostomy complicated by a stoma prolapse with a large parastomal hernia with chronic pain. He also was hospitalized 09/09-09/11 for chest pain; he had unremarkable lexiscan about a month ago. He was hospitalized again in 08/2017 with the same complaints. Last visit he had eloped with his IV present and security was contacted to have the police sent to remove his IV. ? Pt has frequent hospitalizations and ER visits. Pt goes to the [facility] for his medical care. His chronic pain issues include his back and chronic chest wall pain. He is now admitted again with the same chest pain. It occurred at rest. It was 11/06 . He has been given iv morphine and has had relief of chest pain. He is currently drowsy. He denies having any sx. His story now is changed from his HPI. He had initially described chest pressure associated with diaphoresis and nausea. He tells me he had sharp chest pain which is worse on deep breaths and on palpation. He denies any other cardiac symptoms. He has had issues with a stoma. PAST MEDICAL HISTORY Diagnosis Date - AAA (abdominal aortic aneurysm) without rupture ([facility]) 05/13/[address] a/p - CAD (coronary artery disease) 2005 CAD s/p CABG x3 ([id number], [id number]-[id number]-hjoavq, [id number]) (2006 at [place]) - COPD (chronic obstructive pulmonary disease) ([facility]) - Current every day smoker PT SMOKES A PIPE - Diverticulitis Perforated Diverticulitis - Diverticulitis of sigmoid colon 05/15/2017 Added automatically from request for surgery [id number] - Hx of CABG - Pacemaker 02/16/2017 s/p PPM () 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 - Peritonitis ([facility]) PAST SURGICAL HISTORY Procedure Laterality Date - APPENDECTOMY HX - COLOSTOMY 07/2016 Diverting Loop Colostomy of the Transverse Colon - HEART SURGERY HX triple bypass 10 yrs ago - PPM IMPLANT - STENT - CORONARY FAMILY HISTORY Problem Relation Age of Onset - Coronary Artery Disease Father - Hyperlipidemia Father Social History Substance Use Topics - Smoking status: Current Every Day Smoker Packs/day: 0.50 Years: 35.00 Types: Pipe, Cigarettes - Smokeless tobacco: Never Used Comment: Quit cigarettes 11-16-16 now smoking 4 pipes as of 04-18-17 - Alcohol use No Prior to Admission Medications Prescriptions Last Dose Informant Patient Reported? Taking? COMPOUNDED PRESCRIPTION No No Sig: One Piece Ostomy Pouch Item Type: Coloplast Sensura One Piece Non-Sterile with Window 3-4 1/2'' ?5/Box ICD 10: Prolapsed Stoma K94.09 COMPOUNDED PRESCRIPTION No No Sig: Paste: Convatec Stomahesive 1 tube ICD 10: Prolapsed Stoma K 94.09 MULTIVIT WITH IRON,MINERALS (MULTIVITAMIN AND MINERALS ORAL) Yes No Sig: Take 1 capsule by mouth once daily. QUEtiapine (SEROQUEL) 200 mg tablet No No Sig: Take 2 tablets by mouth daily at bedtime. albuterol HFA (PROVENTIL HFA, VENTOLIN HFA) 90 mcg/actuation inhaler Yes No Sig: Inhale 2 Puffs as instructed every 4 hours as needed for Wheezing/Shortness of Breath. amLODIPine (NORVASC) 10 mg tablet Yes No Sig: Take 10 mg by mouth once daily. aspirin, enteric coated (ASPIRIN, ENTERIC COATED) 81 mg EC tablet Yes No Sig: Take 81 mg by mouth once daily. cyclobenzaprine (FLEXERIL) 10 mg tablet No No Sig: Take 1 tablet by mouth at bedtime as needed for Muscle Spasm. fluticasone (FLONASE) 50 mcg/actuation nasal spray Yes No Sig: Use 1 [place] in the nose once daily as needed. furosemide (LASIX) 20 mg tablet Yes No Sig: Take 40 mg by mouth once daily as needed. gabapentin (NEURONTIN) 300 mg capsule No No Sig: Take 2 capsules by mouth daily at bedtime for 90 days. loratadine 10 mg cap Yes No Sig: Take 1 capsule every day by oral route as needed losartan (COZAAR) 100 mg tablet Yes No Sig: Take 100 mg by mouth once daily. metoprolol succinate ER (TOPROL XL) 100 mg Tb24 No No Sig: Take 1 tablet by mouth once daily. nitroglycerin sublingual (NITROSTAT) 0.4 mg SL tablet No No Sig: PLACE ONE(1) TABLET UNDER TONGUE NEEDED FOR CHEST PAIN. IF NO PAIN RELIEF CALL 911 ondansetron (ZOFRAN) 4 mg tablet Yes No Sig: Take 4 mg by mouth every 6 hours as needed. pravastatin (PRAVACHOL) 40 mg tablet Yes No Sig: Take 40 mg by mouth daily at bedtime. ranolazine ER (RANEXA) 500 mg 12 hr tablet No No Sig: Take 1 tablet by mouth twice daily. vitamin B complex (B COMPLEX ORAL) Yes No Sig: Take 1 tablet by mouth once daily. Facility-Administered Medications: None Current hospital medications: amLODIPine 10 mg tab(s) (NORVASC) 10 mg ORAL DAILY furosemide 40 mg tab(s) (LASIX) 40 mg ORAL BID 9a/5p gabapentin 600 mg cap(s) (NEURONTIN) 600 mg ORAL AT BEDTIME losartan 100 mg tab(s) (COZAAR) 100 mg ORAL DAILY metoprolol succinate ER 100 mg tab(s) (TOPROL XL) 100 mg ORAL DAILY pravastatin 40 mg tab(s) (PRAVACHOL) 40 mg ORAL AT BEDTIME QUEtiapine 400 mg tab(s) (SEROquel) 400 mg ORAL AT BEDTIME ranolazine ER 500 mg tab(s) (RANEXA) 500 mg ORAL BID enoxaparin 40 mg injection (LOVENOX) 40 mg SUBCUTANEOUS DAILY [START ON 02/04/2018] aspirin, enteric coated 81 mg tab(s) 81 mg ORAL DAILY nitroglycerin sublingual 0.4 mg tab(s) (NITROQUICK) 0.4 mg SUBLINGUAL q 5 MIN PRN morphine 2 mg injection 2 mg INTRAVENOUS q 4 H PRN perflutren lipid microspheres 1.1 mg/mL 1.3 mL injection ([email or web address]) 1.3 mL INTRAVENOUS DIRECTED PRN iv contrast (radiology procedure) INTRAVENOUS DIRECTED PRN nitroglycerin sublingual 0.4 mg tab(s) (NITROQUICK) 0.4 mg SUBLINGUAL q 5 MIN PRN ALLERGIES Allergen Reactions - Altaseptic Unknown - Brilinta [Ticagrelo* Unknown - Crestor [Rosuvastat* Myalgia - Hctz [Amiloride-Hyd* Swelling - Moxifloxacin Swelling - Other [place]-3s Unknown brelinta - Ramipril Swelling Other reaction(s): Facial swelling - Simvastatin Myalgia Other reaction(s): Facial swelling - Voltaren [Diclofena* Unknown CARDIAC STATUS: Chest Pain: As mentioned above Dyspnea: NYHA Class II-III Ankle Edema: Negative Arrhythmia: Negative, Patient denies palpitations, lightheadedness, dizziness, syncope or near syncope. Functional Capacity: Independent REVIEW OF SYSTEMS: The following systems were reviewed with the patient, and are unremarkable other than as described below. SYSTEMIC: No fever, chills, or change in weight or appetite HEENT: No recent change in vision or hearing. CARDIOVASCULAR: Joaquin mentioned above GI: No recent nausea, vomiting or diarrhea. Has a colostomy and chronic stoma issues and pain : No recent hematuria or dysuria. SKIN: No recent itching or eruption. PSYCH: No recent active anxiety or depression. HEMATOLOGY/ONCOLOGY: No recent diagnosis of bleeding or cancer. ENDOCRINE: No recent polyuria or heat intolerance. NEURO: No recent TIA, stroke or seizures. RHEUMATOLOGY: No recent active connective tissue disease. Objective PHYSICAL EXAM: Pleasant, comfortable, not in acute distress. Awake, alert, oriented times 3. Moves all extremities. SKIN: No rash or lumps. HEENT: Normocephalic, face symmetrical. NECK: Supple, no JVD, no carotid bruit, no thyromegaly. LUNGS: Clear to auscultation bilaterally. CARDIAC: PMI present, RRR, S1 and S2, no S3 or S4, no additional heart sounds or murmurs. ABDOMEN: Soft, nontender, bowel sounds present. Colostomy bag present EXTREMITIES: No edema. PULSES: Peripheral pulses present. Body mass index is 29.65 kg/m?. O2 Therapy: Continuous Positive Airway Pressure No Data Recorded Patient Vitals for the past 48 hrs: BP Temp Temp src Pulse Resp SpO2 Height Weight 02/03/18 1027 - - - 60 16 96 % - - 02/03/18 1000 128/66 - - 65 15 - - - 02/03/18 0900 122/60 - - 62 15 - - - 02/03/18 0800 115/62 - - 70 14 (!) 91 % - - 02/03/18 0700 122/73 - - 85 15 (!) 91 % - - 02/03/18 0600 124/71 - - 67 16 (!) 94 % - - 02/03/18 0500 134/63 - - 60 20 (!) 93 % - - 02/03/18 0400 131/62 - - 67 19 95 % - - 02/03/18 0301 115/55 - - 65 18 96 % - - 02/03/18 0130 129/54 - - 79 16 98 % - - 02/02/18 2205 156/73 - - 60 15 96 % - - 02/02/18 2055 147/55 - - 61 14 98 % - - 02/02/18 1944 171/73 - - 60 18 98 % - - 02/02/18 1905 128/59 - - 62 16 - - - 02/02/18 1900 178/73 - - 60 18 99 % - - 02/02/18 1830 169/71 - - 60 19 (!) 93 % - - 02/02/18 1821 170/65 - - 60 20 - - - 02/02/18 1724 166/57 (!) 37.3 ?C (99.1 ?F) Oral 80 18 96 % 172.7 cm (5' 8) 88.5 kg (195 lb) DATA: Diagnostic tests reviewed for today's visit: Most recent labs and imaging results. Most recent EKG ECG: AV paced CTA chest : IMPRESSION: ? Nonaneurysmal thoracic aorta. ?No evidence of acute thoracic aortic dissection. ? 12 mm right upper lobe pulmonary nodule. ?6 mm nodule left lateral costophrenic angle. ?Follow-up is needed to exclude malignancy. ? 3.2 cm hypoattenuating right thyroid nodule. ?Correlation with TFTs and follow-up elective ultrasound thyroid study is recommended as indicated. ? 3.2 cm AP infrarenal abdominal aortic aneurysm. ?No evidence of acute abdominal aortic aneurysm. ?Follow-up is recommended. ? Possible hepatic steatosis. ? Moderate fusiform thickening of the left adrenal gland. ?Stable. ? Hypodense renal cortical lesions, probable cysts. ?Consider further characterization with follow-up elective ultrasound study as indicated. ? Right-sided diverting colostomy with parastomal hernia containing loops of small bowel as previously demonstrated. ? Colonic diverticulosis without definite findings of acute diverticulitis. ? Enlarged prostate gland with nonfocal urinary bladder wall thickening. ?Correlate clinically for possible chronic bladder outlet obstruction. ? Additional nonacute findings as described above Past 72 Hour Labs: Component Latest Ref Rng AND Units 02/02/2018 02/02/2018 02/03/2018 6:14 PM 10:13 PM ECU Troponin I 0.015 - 0.045 ng/ml <0.015 0.017 Troponin I 0.015 - 0.045 ng/ml <0.015 Recent Labs 02/03/18 0432 TROPI <0.015 WBC 9.06 RBC 4.18* HB 13.0* HCT 38.4* MCV 91.9 MCH 31.1 MCHC 33.9 PLT 239 MPV 10.4 GLUC 135* BUN 15 CREAT 0.97 NA 141 K 3.1* CHLOR 103 CO2 34* TPROT 6.4 ALB 3.2* CA 9.3 ALKPHOS 83 TBILI 0.2 AST 12 ALT 20 Last Lab Drawn: Triglyceride 100 10/02/2016 HDL Cholesterol 37 10/02/2016 LDL Calculated 125 10/02/2016 Cholesterol, Total 182 10/02/2016 Prior Cardiac Workup: Lexiscan 07/2017: CONCLUSIONS: ?1. SPECT Perfusion Study: Abnormal. ?2. There is a moderate (10-20%) fixed perfusion defect in the LCX territory c/w prior infarction. ?3. There is no scintigraphic evidence for inducible ischemia. ?4. Left ventricle is mildly dilated. The left ventricle systolic function is mildly decreased. There is basal and mid inferior and inferior lateral hypokinesis in the LCx distribution. ?5. Right ventricle is normal in size. The right ventricle systolic function is normal. ?6. Functional capacity N/A (pharmacological). ?7. This is an intermediate risk scan. ?Gated Stress FBP ?LVEF % 43 Lexiscan 04/2017: IMPRESSION: ?ABNORMAL STUDY ? 1. NO EVIDENCE OF ISCHEMIA. ?MODERATE LCX DISTRIBUTION INFARCTION REPRESENTING 13% ?OF THE VENTRICLE. ? 2. NORMAL SIZE LEFT VENTRICLE WITH ABNORMAL GLOBAL AND REGIONAL FUNCTION. ? 3.LVEF= 47%. Echo 03/2017: CONCLUSIONS: - Technically difficult exam due to body habitus. - Exam indication: Chest Pain - The left ventricle is mildly dilated. There is mild left ventricular hypertrophy. Left ventricular systolic function is mildly decreased. EF = 50 ? 5% (visual est.) Definity contrast used for endocardial border detection. - The right ventricle is normal in size. Right ventricular systolic function is normal. - The patient has not had a prior CC echocardiographic exam for comparison. Impression/Recommendations Chronic chest pain, negative ischemic evaluation x 2 in 2018 Known CAD/CABG/PCI Chronic systolic and diastolic CHF, compensated Ischemic cardiomyopathy, EF 45-50% S/p PPM HTN Hyperlipidemia Smoker Plan: Evaluate for non cardiac causes of chest pain In the previous admission, pain management was involved. Consider pain management consult. On appropriate cardiac medications, including ranexa No further cardiac testing needed at present Counseled on smoking cessation Will sign off. 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 Orders reviewed and I agree with the cardiac orders. SIGNATURE: Heri Santana MD, [facility] PATIENT NAME: Maxx Knott DATE: February 03, 2018 TIME: 10:43 AM PAGER/CONTACT #: [id number] Collected: 02/03/2018 Status: F Source: [facility] 4:32 AM HEALTH SYSTEM REPOSITORY TYPE CODE TESTS RESULT OUT OF RANGE REFERENCE UNITS LAB GFRFN(LOINC >60mL/min/1.73m ) 2 eGFR >60 Result Comment: If the patient is , multiply the result by 1.210. Performed By: #### GFR #### [place] [address] HEMOGRAM Collected: 02/03/2018 Status: F Source: [facility] 4:32 HEALTH SYSTEM REPOSITORY TYPE CODE TESTS RESULT OUT OF REFERENCE UNITS RANGE LAB WBC(LOINC) 4.23-9.07 thou/cmm WBC 9.06 LAB RBC(LOINC) 4.63-6.08 mil/cmm Low RBC 4.18 LAB HGB(LOINC) 13.7-17.5 g/dL Low Hgb 13.0 LAB HCT(LOINC) 40.1-51.0 % Low Hct 38.4 LAB MCV(LOINC) 83.2-95.6 fl MCV 91.9 LAB MCH(LOINC) 25.7-32.2 pg MCH 31.1 LAB MCHC(LOINC) 32.3-36.5 % MCHC 33.9 LAB RDW(LOINC) 11.6-14.4 % RDW 14.0 LAB RDWSD(LOINC 36.1-45.8 fl ) High RDW SD 47.6 LAB PLT(LOINC) 141-365 thou/cmm Platelet 239 LAB MPV(LOINC) 8.7-12.0 fl MPV 10.4 Performed By: #### CBC1 #### [place] [address] TROPONIN I Collected: 02/03/2018 Status: F Source: [facility] 4:32 HEALTH SYSTEM REPOSITORY TYPE CODE TESTS RESULT OUT OF REFERENCE UNITS RANGE LAB TROP(LOINC) 0.015-0.045 ng/ml Troponin I < 0.015 Performed By: #### TROP #### [place] [address] COMPREHENSIVE PANEL Collected: 02/03/2018 Status: F Source: [facility] 4:32 AM HEALTH SYSTEM REPOSITORY TYPE CODE TESTS RESULT OUT OF REFERENCE UNITS RANGE LAB NA(LOINC) 136-145 mEq/L Sodium Blood 141 LAB K(LOINC) 3.5-5.1 mEq/L Low Potassium Blood 3.1 LAB CL(LOINC) 98-107 mEq/L Chloride Blood 103 LAB CO2(LOINC) 21-32 mEq/L CO2 Blood High 34 LAB GLU(LOINC) 70-99 mg/dL Glucose High Blood 135 LAB BUN(LOINC) 7-18 mg/dL BUN Blood 15 LAB CREA(LOINC 0.67-1.17 mg/dL ) Creatinine Blood 0.97 LAB CA(LOINC) 8.5-10.1 mg/dL Calcium Blood 9.3 LAB ALB(LOINC) 3.4-5.0 g/dL Low Albumin Blood 3.2 LAB TP(LOINC) 6.4-8.2 g/dL Total Protein 6.4 LAB AST(LOINC) 9-37 U/L AST-SGOT Blood 12 LAB ALT(LOINC) 12-78 U/L ALT-SGPT Blood 20 LAB ALKP(LOINC 46-116 U/L ) Alk Phosphatase 83 LAB BILIT(LOIN 0.2-1.0 mg/dL C) Total Bilirubin 0.2 LAB ANGAP(LOIN 8-16 C) Low Anion Gap 7 Performed By: #### P14 #### [place] [address] HISTORY PHYSICAL Observed: 02/03/2018 Status: COMPLETED Source: [place] 1:51 AM CLINIC OTHER CAMPUS REPOSITORY HNO ID: [id number] Author: Lemuel Mcdaniels Service: Hospital Medicine Author Type: Physician Type: HANDP Filed: 02/03/2018 4:20 AM Note Text: DEPARTMENT OF HOSPITAL MEDICINE HISTORY AND PHYSICAL EXAM AUTHOR: Lemuel Mcdaniels MD PATIENT NAME: Maxx Knott DATE: February 03, 2018 1:51 AM Primary Care Physician: Bijan Perez MD NIGHT AND WEEKEND COVERAGE: From 7am - 7pm, please call Sound Physician on duty After 7pm, please call cross cover pager #[phone] Subjective CHIEF COMPLAINT: Chest Pain This is a 67-year-old male presents for evaluation of chest pain he states the chest pain started suddenly about one hour prior to arrival he stated that is pressure-like in nature he had some nausea some vomiting some diaphoresis. As well as some lightheadedness. He does have a history of PA ?2 as well as CABG. States he also had protrusion of the colostomy bag to the right lower quadrant supposed to get this fixed but has not followed up. He stated the pain was also going to his back, no tearing sensation The patient was seen and examined at bedside. Appears to be alert and awake with mild apparent distress in pain. Has no other new active complaints. On direct questioning, denied any ongoing resting chest pain, SOB, orthopnea, cough, fever, ongoing palpitation, active abdominal pain, any other and GI complaints. 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 - Peritonitis ([facility]) PAST SURGICAL HISTORY Procedure Laterality Date - APPENDECTOMY HX - COLOSTOMY 07/2016 Diverting Loop Colostomy of the Transverse Colon - HEART SURGERY HX triple bypass 10 yrs ago - PPM IMPLANT - STENT - CORONARY FAMILY HISTORY Problem Relation Age of Onset - Coronary Artery Disease Father - Hyperlipidemia Father Social History Substance Use Topics - Smoking status: Current Every Day Smoker Packs/day: 0.50 Years: 35.00 Types: Pipe, Cigarettes - Smokeless tobacco: Never Used Comment: Quit cigarettes 11-16-16 now smoking 4 pipes as of 04-18-17 - Alcohol use No HOME MEDICATIONS: (Not in a hospital admission) MEDICATIONS: Current hospital medications: iv contrast (radiology procedure) INTRAVENOUS DIRECTED PRN nitroglycerin sublingual 0.4 mg tab(s) (NITROQUICK) 0.4 mg SUBLINGUAL q 5 MIN PRN ALLERGIES Allergen Reactions - Altaseptic Unknown - Brilinta [Ticagrelo* Unknown - Crestor [Rosuvastat* Myalgia - Hctz [Amiloride-Hyd* Swelling - Moxifloxacin Swelling - Other [place]-3s Unknown brelinta - Ramipril Swelling Other reaction(s): Facial swelling - Simvastatin Myalgia Other reaction(s): Facial swelling - Voltaren [Diclofena* Unknown REVIEW OF SYSTEM: Constitutional: Negative for chills and fever. HENT: Negative for ear pain and sore throat. Eyes: Negative for pain and redness. Respiratory: Positive for chest tightness and shortness of breath. Negative for cough. Cardiovascular: Negative for chest pain and palpitations. Gastrointestinal: Negative for abdominal pain and diarrhea. Genitourinary: Negative for dysuria and flank pain. Musculoskeletal: Negative for myalgias and neck stiffness. Skin: Negative for color change and rash. Neurological: Negative for seizures and weakness. Psychiatric/Behavioral: Negative for agitation and hallucinations. Objective PHYSICAL EXAM: BP 129/54 Pulse 79 Temp (Src) 99.1 (Oral) Resp 16 Ht 5' 8 (1.73m) Wt 195 lb (88.5kg) SpO2 98% BMI 29.66 kg/(m2). General: No acute distress and Alert AND Awake HEENT: NC/AT, PERRLA, no icterus. OP clear and no exudates Neck: Supple, There is no LAD or thyromegaly. Cardio: S1+S2 WNL; No S3 or S4; no MGRs Pulmonary: Lungs clear to auscultation bilaterally, no audible wheezing Abdomen: Soft, non-tender,non-distended. Colostomy bag ans stoma loooks protruded. Coloscopy care consult requested. Extremities: All peripheral pulses are palpable. No calf tenderness. Asterixis and tremor is absent. Neuro exam: Alert and awake. No new focal neuro deficit. Sensation grossly normal Derm: Negative for rashes and lesions. Pressure ulcer/decibiti: None Admission Lab/Imaging/Procedure workup: EKG: No ST changes suggestive of PA Most recent labs and imaging results. Results for orders placed or performed during the hospital encounter of 02/02/18 XR CHEST 1V FRONTAL Result Value Ref Range Transplant Coordinator EXAM TITLE: CHEST 1 VIEW DATE: 02/02/2018 17:47 COMPARISON: Chest x-ray 11/18/2017 CLINICAL INDICATION/HISTORY: Chest pain and shortness of breath TECHNIQUE: Portable AP view the chest. FINDINGS: Left chest pacemaker with leads profiling the right atrium and right ventricle. The cardiomediastinal silhouette is unremarkable. No pneumothorax. The costophrenic angles are clear bilaterally. No areas of consolidation. The pulmonary vessels are within normal limits. Sternotomy wires are present. IMPRESSION: No evidence of acute intrathoracic process. CTA CHEST (GATED) WO/W IVCON Result Value Ref Range Transplant Coordinator CT ANGIO CHEST WITHOUT AND WITH IV CONTRAST AND CT ANGIO ABDOMEN AND PELVIS WITH IV CONTRAST WITH 3-D POSTPROCESSING: CLINICAL INDICATION: Back pain. Chest pain. COMPARISON: CT abdomen and pelvis study 11/18/2017, CT chest, abdomen and pelvis study 08/09/[address] abdomen and pelvis studies 07/21/2017 and 09/20/2016. An initial series of axial images are obtained of the chest from above the lung apices through the bases before IV contrast. Series of axial images are then obtained of the chest, abdomen and pelvis during the arterial phase of enhancement following IV contrast with centerline, coronal and sagittal reformations including MIP and shaded surface display 3-D postprocessing. Contrast: 150 mL of Omnipaque [address] Dose-Length Product: 1764 mGy*cm CT Dose Reduction Employed: Automated exposure control Chest: The noncontrast images demonstrate no definite evidence of an acute intramural hematoma of the thoracic aorta allowing for postope rative changes of CABG. The thoracic aorta is nonaneurysmal. There is no definite evidence of an acute dissection of the thoracic aorta. There is uniform opacification of the pulmonary outflow tract, main and lobar pulmonary arteries. There is four-chamber enlargement of the heart. There is no mediastinal hematoma. There is no pathologically enlarged mediastinal lymphadenopathy. There is no pericardial wall thickening. There is no sizable pericardial effusion. There is underlying emphysema. There is a 12 mm right upper lobe apical nodule, image 35 of series 5, stable to comparison CT chest study 08/09/2017. There are reticular and nodular densities within the left lateral costophrenic angle. There is a 6 mm nodular density within the lateral costophrenic angle, image 121. There are scattered granulomatous calcifications. There is no pleural effusion. Left-sided healed first and second rib fractures. No axillary lymphadenopathy. 3.2 cm hypoattenuating right thyroid nodule. Multilevel degenerative spondylosis of the thoracic spine with exuberant anterior osteophyte formation upper thoracic spine. Left subclavian dual-chamber pacemaker device with right atrial and ventricular leads. Abdomen/pelvis: There are diffuse atherosclerotic changes of the abdominal aorta. There is fusiform aneurysmal dilatation of the infrarenal abdominal aorta measuring 3.2 cm AP. The abdominal aorta tapers in diameter distally. There is mild fusiform dilatation of the common iliac arteries. There is no definite evidence of an acute dissection of the abdominal aorta. There is no retroperitoneal hematoma. There is no hemoperitoneum. The celiac and superior mesenteric arteries are patent with stenotic appearance of the proximal celiac artery with poststenotic dilatation. The renal and inferior mesenteric arteries appear patent. Conspicuity and characterization of visceral attenuation abn ormalities is compromised during the arterial phase of enhancement. There is a relative diffuse decrease in liver attenuation. The gallbladder is visualized. There is no biliary duct dilatation. Characterization of the spleen is limited. The pancreatic duct does not appear dilated. There is moderate nodular thickening of the left adrenal gland as previously demonstrated. There are bilateral hypodense renal cortical lesions. One of the larger hypodense lesions arising from the lateral left mid kidney measures 2.6 cm in size. No renal calculus. No hydronephrosis. There is a right-sided diverting colostomy. There is redemonstration of a parastomal hernia containing loops of small bowel. The small bowel does not appear dilated. The appendix is not convincingly visualized. There are no pericecal inflammatory changes. There is a diffuse colonic diverticulosis. There is extensive diverticulosis of the sigmoid colon. There ar e no definite associated pericolonic inflammatory changes. The prostate gland is enlarged. There is nonfocal thickening of the urinary bladder wall. Multilevel degenerative spondylosis of the lumbar spine. IMPRESSION: Nonaneurysmal thoracic aorta. No evidence of acute thoracic aortic dissection. 12 mm right upper lobe pulmonary nodule. 6 mm nodule left lateral costophrenic angle. Follow-up is needed to exclude malignancy. 3.2 cm hypoattenuating right thyroid nodule. Correlation with TFTs and follow-up elective ultrasound thyroid study is recommended as indicated. 3.2 cm AP infrarenal abdominal aortic aneurysm. No evidence of acute abdominal aortic aneurysm. Follow-up is recommended. Possible hepatic steatosis. Moderate fusiform thickening of the left adrenal gland. Stable. Hypodense renal cortical lesions, probable cysts. Consider further characterization with follow-up elective ultrasound study as indicated. Right-side d diverting colostomy with parastomal hernia containing loops of small bowel as previously demonstrated. Colonic diverticulosis without definite findings of acute diverticulitis. Enlarged prostate gland with nonfocal urinary bladder wall thickening. Correlate clinically for possible chronic bladder outlet obstruction. Additional nonacute findings as described above. CTA ABD/PEL W IVCON Result Value Ref Range Transplant Coordinator CT ANGIO CHEST WITHOUT AND WITH IV CONTRAST AND CT ANGIO ABDOMEN AND PELVIS WITH IV CONTRAST WITH 3-D POSTPROCESSING: CLINICAL INDICATION: Back pain. Chest pain. COMPARISON: CT abdomen and pelvis study 11/18/2017, CT chest, abdomen and pelvis study 08/09/[address] abdomen and pelvis studies 07/21/2017 and 09/20/2016. An initial series of axial images are obtained of the chest from above the lung apices through the bases before IV contrast. Series of axial images are then obtained of the chest, abdomen and pelvis during the arterial phase of enhancement following IV contrast with centerline, coronal and sagittal reformations including MIP and shaded surface display 3-D postprocessing. Contrast: 150 mL of Omnipaque [address] Dose-Length Product: 1764 mGy*cm CT Dose Reduction Employed: Automated exposure control Chest: The noncontrast images demonstrate no definite evidence of an acute intramural hematoma of the thoracic aorta allowing for postope rative changes of CABG. The thoracic aorta is nonaneurysmal. There is no definite evidence of an acute dissection of the thoracic aorta. There is uniform opacification of the pulmonary outflow tract, main and lobar pulmonary arteries. There is four-chamber enlargement of the heart. There is no mediastinal hematoma. There is no pathologically enlarged mediastinal lymphadenopathy. There is no pericardial wall thickening. There is no sizable pericardial effusion. There is underlying emphysema. There is a 12 mm right upper lobe apical nodule, image 35 of series 5, stable to comparison CT chest study 08/09/2017. There are reticular and nodular densities within the left lateral costophrenic angle. There is a 6 mm nodular density within the lateral costophrenic angle, image 121. There are scattered granulomatous calcifications. There is no pleural effusion. Left-sided healed first and second rib fractures. No axillary lymphadenopathy. 3.2 cm hypoattenuating right thyroid nodule. Multilevel degenerative spondylosis of the thoracic spine with exuberant anterior osteophyte formation upper thoracic spine. Left subclavian dual-chamber pacemaker device with right atrial and ventricular leads. Abdomen/pelvis: There are diffuse atherosclerotic changes of the abdominal aorta. There is fusiform aneurysmal dilatation of the infrarenal abdominal aorta measuring 3.2 cm AP. The abdominal aorta tapers in diameter distally. There is mild fusiform dilatation of the common iliac arteries. There is no definite evidence of an acute dissection of the abdominal aorta. There is no retroperitoneal hematoma. There is no hemoperitoneum. The celiac and superior mesenteric arteries are patent with stenotic appearance of the proximal celiac artery with poststenotic dilatation. The renal and inferior mesenteric arteries appear patent. Conspicuity and characterization of visceral attenuation abn ormalities is compromised during the arterial phase of enhancement. There is a relative diffuse decrease in liver attenuation. The gallbladder is visualized. There is no biliary duct dilatation. Characterization of the spleen is limited. The pancreatic duct does not appear dilated. There is moderate nodular thickening of the left adrenal gland as previously demonstrated. There are bilateral hypodense renal cortical lesions. One of the larger hypodense lesions arising from the lateral left mid kidney measures 2.6 cm in size. No renal calculus. No hydronephrosis. There is a right-sided diverting colostomy. There is redemonstration of a parastomal hernia containing loops of small bowel. The small bowel does not appear dilated. The appendix is not convincingly visualized. There are no pericecal inflammatory changes. There is a diffuse colonic diverticulosis. There is extensive diverticulosis of the sigmoid colon. There ar e no definite associated pericolonic inflammatory changes. The prostate gland is enlarged. There is nonfocal thickening of the urinary bladder wall. Multilevel degenerative spondylosis of the lumbar spine. IMPRESSION: Nonaneurysmal thoracic aorta. No evidence of acute thoracic aortic dissection. 12 mm right upper lobe pulmonary nodule. 6 mm nodule left lateral costophrenic angle. Follow-up is needed to exclude malignancy. 3.2 cm hypoattenuating right thyroid nodule. Correlation with TFTs and follow-up elective ultrasound thyroid study is recommended as indicated. 3.2 cm AP infrarenal abdominal aortic aneurysm. No evidence of acute abdominal aortic aneurysm. Follow-up is recommended. Possible hepatic steatosis. Moderate fusiform thickening of the left adrenal gland. Stable. Hypodense renal cortical lesions, probable cysts. Consider further characterization with follow-up elective ultrasound study as indicated. Right-side d diverting colostomy with parastomal hernia containing loops of small bowel as previously demonstrated. Colonic diverticulosis without definite findings of acute diverticulitis. Enlarged prostate gland with nonfocal urinary bladder wall thickening. Correlate clinically for possible chronic bladder outlet obstruction. Additional nonacute findings as described above. CBC + AUTO DIFF (AK,AV,EU,FV,HL,DEMARCO,MM,SP) Result Value Ref Range WBC 9.35 (H) 4.23 - 9.07 thou/cmm RBC 4.33 (L) 4.63 - 6.08 mil/cmm HGB 13.5 (L) 13.7 - 17.5 g/dL Hematocrit 39.7 (L) 40.1 - 51.0 % MCV 91.7 83.2 - 95.6 fl MCH 31.2 25.7 - 32.2 pg MCHC 34.0 32.3 - 36.5 % RDW 13.5 11.6 - 14.4 % RDW-SD 45.9 (H) 36.1 - 45.8 fl Platelet Count 263 141 - 365 thou/cmm MPV 10.7 8.7 - 12.0 fl Seg Neutrophil 75.9 % Immature Grans 0.40 % Lymphocyte 15.2 % Monocyte 6.5 % Eosinophil 1.7 % Basophil 0.3 % Abs. Neut(Anc) 7.10 (H) 1.78 - 5.38 thou/cmm Immature Grans # 0.04 0.00 - 0.05 thou/cmm Abs. Lymph 1.42 0.84 - 2.85 thou/cmm Abs. [place] 0.61 0.30 - 0.82 thou/cmm Abs. Eosin 0.16 0.04 - 0.54 thou/cmm Abs. Baso 0.03 0.01 - 0.08 thou/cmm BASIC METABOLIC PANEL (AK,AV,EU,FV,HL,DEMARCO,MM,SP) Result Value Ref Range Sodium 140 136 - 145 mEq/L Potassium 3.6 3.5 - 5.1 mEq/L Chloride 104 98 - 107 mEq/L CO2 30 21 - 32 mEq/L Glucose 148 (H) 70 - 99 mg/dL BUN 13 7 - 18 mg/dL Creatinine 0.93 0.67 - 1.17 mg/dL Calcium 9.3 8.5 - 10.1 mg/dL Anion Gap 10 8 - 16 [facility] TROPONIN I ([facility]) Result Value Ref Range [facility] Troponin I <0.015 0.015 - 0.045 ng/ml MDRD GFR Result Value Ref Range eGFR >60 >60mL/min/1.73m2 [facility] TROPONIN I ([facility]) Result Value Ref Range ECU Troponin I 0.017 0.015 - 0.045 ng/ml Active Hospital Problems Diagnosis - Chronic systolic congestive heart failure (HCC) EF=47% April 2017 Added automatically from request for surgery [id number] - CAD (coronary artery disease) Nuclear stress test >>No ischemia. EF=47% 2017 - Essential hypertension - Diverticulitis of sigmoid colon Added automatically from request for surgery [id number] ASSESSMENT AND PLAN # Severe Chest Pain to R/O ACS Monitor with telemetry H/o chest pain earlier but there is no ongoing resting chest pain now Patient has multiple risk factor Patient is hemodynamically stable. AANDOx3 EKG as above. No new ST changes. No arrhythmia observed on telemonitoring Initial Troponin negative - will trend 3 sets of Troponin and serial EKGs S/P Aspirin 325 mg in the ED Aspirin + Statins + Betablocker +ARB on board Nitroglycerin sublingual PRN Echo in AM Cardiology consult requested Will monitor vitals # Chronic HFrEF - Currently maintaining SPO2>95% BNP- Elevated as above Continue Home medications Fluid restriction 1000 ml/day Strict I/O and daily weight Metoprolol +ARB on board Continuous telemetry monitoring # H/O Colectomy for diverticulitis- Colostomy care consult requsted Surgery f/u, if needed # Hypertension Currently controlled On heart healthy diet with Na restriction/neutritional consult requested Continue home medications Will monitor vitals and adjust BP meds as needed # VTE Prophylaxis: Lovenox 40mg Sub Q Daily # NUTRITION: Eating and drinking diet # Fall Precaution: Yes # Disposition: Home Code Status: Patient wishes to be Full The Patient was counseled at bedside about clinical status, laboratory/imaging results, diagnoses, and treatment plan and verbalized understanding. Additionally the risks, consequences, alternatives and side effects of the prescribed medications were explained and verbalized understanding and agreed. Total Time Spent on Patient Admission 45 minutes SIGNATURE: Lemuel Mcdaniels MD PATIENT NAME: Maxx Knott DATE: February 03, 2018 TIME: 1:51 AM PAGER/CONTACT #: [phone] EKG Observed: 02/02/2018 Status: F Source: [place] 10:24 PM [facility] REPOSITORY NAME : MAXX KNOTT PID : [id number] : 1950 Gender : Male Race : ORD : Procedure Date : Feb 02 2018 22:24 Edit Date : Feb 03 2018 04:59 Diagnosis:AV dual-paced rhythm with prolonged AV conduction ABNORMAL ECG WHEN COMPARED WITH ECG OF 02-FEB-2018 17:24, CURRENT UNDETERMINED RHYTHM PRECLUDES RHYTHM COMPARISON, NEEDS REVIEW QUESTIONABLE CHANGE IN QRS DURATION Confirmed by Vianney Cantu ([id number]) on 02/03/2018 4:59:49 AM Ventricular Rate : 60 BPM Atrial Rate : 60 BPM P-R Interval : 232 ms QRS Duration : 172 ms Q-T Interval : 514 ms QTC Calculation(Bezet) : 514 ms P [place] : -28 degrees R [place] : 81 degrees T [place] : 42 degrees Test Reason : Location : 4 : [facility] Overread By : Vianney Cantu Editted By : Vianney Cantu Referred By : LATANYA ZHENG Acquired by : Shazia Ngo ED NOTE Observed: 02/02/2018 Status: COMPLETED Source: [place] 10:14 PM [facility] REPOSITORY HNO ID: [id number] Author: Amira (Rn) MITCHELL Holt Service: Emergency Medicine Author Type: Registered Nurse Type: ED Notes Filed: 02/02/2018 10:14 PM Note Text: Dr. Emmanuel at bedside to update pt [facility]U TROPONIN I Collected: 02/02/2018 Status: F Source: [facility] 10:13 PM [facility] REPOSITORY TYPE CODE TESTS RESULT OUT OF REFERENCE UNITS RANGE LAB ERTRP(LOINC 0.015-0.045 ng/ml ) ECU Troponin I 0.017 Performed By: #### ERTRP #### [place] [id number] CTA CHEST (GATED) Observed: 02/02/2018 Status: F Source: [facility] WO/W IV CON 8:11 PM HEALTH SYSTEM REPOSITORY Performed at [facility] APPROVED BY: Chele Valdes MD CT ANGIO CHEST WITHOUT AND WITH IV CONTRAST AND CT ANGIO ABDOMEN AND PELVIS WITH IV CONTRAST WITH 3-D POSTPROCESSING: CLINICAL INDICATION: Back pain. Chest pain. COMPARISON: CT abdomen and pelvis study 11/18/2017, CT chest, abdomen and pelvis study 08/09/[address] abdomen and pelvis studies 07/21/2017 and 09/20/2016. An initial series of axial images are obtained of the chest from above the lung apices through the bases before IV contrast. Series of axial images are then obtained of the chest, abdomen and pelvis du ring the arterial phase of enhancement following IV contrast with centerline, coronal and sagittal reformations including MIP and shaded surface display 3-D postprocessing. Contrast: 150 mL of Omnipaque [address] Dose-Length Product: 1764 mGy*cm CT Dose Reduction Employed: Automated exposure control Chest: The noncontrast images demonstrate no definite evidence of an acute intramural hematoma of the thoracic aorta allowing for postoperative changes of CABG. The thoracic aorta is nonaneurysmal. There is no definite evidence of an acute dissection of the thoracic aorta. There is uniform opacification of the pulmonary outflow tract, main and lobar pulmonary arteries. There is four-chamber enlargement of the heart. There is no mediastinal hematoma. There is no pathologically enlarged mediastinal lymphadenopathy. There is no pericardial wall thickening. There is no sizable pericardial effusion. There is underlying emphysema. There is a 12 mm right upper lobe apical nodule, image 35 of series 5, stable to comparison CT chest study 08/09/2017. There are reticular and nodular densities within th e left lateral costophrenic angle. There is a 6 mm nodular density within the lateral costophrenic angle, image 121. There are scattered granulomatous calcifications. There is no pleural effusion. Left-sided healed first and second rib fractures. No axillary lymphadenopathy. 3.2 cm hypoattenuating right thyroid nodule. Multilevel degenerative spondylosis of the thoracic spine with exuberant anterior osteophyte formation upper thoracic spine. Left subclavian dual-chamber pacemaker device with right atrial and ventricular leads. Abdomen/pelvis: There are diffuse atherosclerotic changes of the abdominal aorta. There is fusiform aneurysmal dilatation of the infrarenal abdominal aorta measuring 3.2 cm AP. The abdominal aorta tapers in diameter distally. There is mild fusiform dilatation of the common iliac arteries. There is no definite evidence of an acute dissection of the abdominal aorta. There is no retroperitoneal hematoma. There is no hemoperitoneum. The celiac and superior mesenteric arteries are patent with stenotic appearance of the proximal celiac artery with poststenotic dilatation. The renal and inferior mesenteric arteries appear patent. Conspicuity and characterization of visceral attenuation abnormalities is compromised during the arterial phase of enhancement. There is a relative diffuse decrease in liver attenuation. The gallbladder is visualized. There is no biliary duct dilatation. Characterization of the spleen is limited. The pancreatic duct does not appear dilated. There is moderate nodular thickening of the left adrenal gland as previously demonstrated. There are bilateral hypodense renal cortical lesions. One of the larger hypodense lesions arising from the lateral left mid kidney measures 2.6 cm in size. No renal calculus. No hydronephrosis. There is a right-sided diverting colostomy. There is redemonstration of a parastomal hernia containing loops of small bowel. The small bowel does not appear dilated. The appendix is not convincingly visualized. There are no pericecal inflammatory changes. There is a diffuse colonic diverticulosis. There is extensive diverticulosis of the sigmoid colon. There are no definite associated pericolonic inflammatory changes. The prostate gland is enlarged. There is nonfocal thickening of the urinary bladder wall. Multilevel degenerative spondylosis of the lumbar spine. IMPRESSION: Nonaneurysmal thoracic aorta. No evidence of acute thoracic aortic dissection. 12 mm right upper lobe pulmonary nodule. 6 mm nodule left lateral costophrenic angle. Follow-up is needed to exclude malignancy. 3.2 cm hypoattenuating right thyroid nodule. Correlation with TFTs and follow-up elective ultrasound thyroid study is recommended as indicated. 3.2 cm AP infrarenal abdominal aortic aneurysm. No evidence of acute abdominal aortic aneurysm. Follow-up is recommended. Possible hepatic steatosis. Moderate fusiform thickening of the left adrenal gland. Stable. Hypodense renal cortical lesions, probable cysts. Consider further characterization with follow-up elective ultrasound study as indicated. Right-sided diverting colostomy with parastomal hernia containing loops of small bowel as previously demonstrated. Colonic diverticulosis without definite findings of acute diverticulitis. Enlarged prostate gland with nonfocal urinary bladder wall thickening. Correlate clinically for possible chronic bladder outlet obstruction. Additional nonacute findings as described above. CTA ABD/PEL W IV CON Observed: 02/02/2018 Status: F Source: [facility] 8:11 PM HEALTH SYSTEM REPOSITORY Performed at [facility] APPROVED BY: Chele Valdes MD CT ANGIO CHEST WITHOUT AND WITH IV CONTRAST AND CT ANGIO ABDOMEN AND PELVIS WITH IV CONTRAST WITH 3-D POSTPROCESSING: CLINICAL INDICATION: Back pain. Chest pain. COMPARISON: CT abdomen and pelvis study 11/18/2017, CT chest, abdomen and pelvis study 08/09/[address] abdomen and pelvis studies 07/21/2017 and 09/20/2016. An initial series of axial images are obtained of the chest from above the lung apices through the bases before IV contrast. Series of axial images are then obtained of the chest, abdomen and pelvis du ring the arterial phase of enhancement following IV contrast with centerline, coronal and sagittal reformations including MIP and shaded surface display 3-D postprocessing. Contrast: 150 mL of Omnipaque [address] Dose-Length Product: 1764 mGy*cm CT Dose Reduction Employed: Automated exposure control Chest: The noncontrast images demonstrate no definite evidence of an acute intramural hematoma of the thoracic aorta allowing for postoperative changes of CABG. The thoracic aorta is nonaneurysmal. There is no definite evidence of an acute dissection of the thoracic aorta. There is uniform opacification of the pulmonary outflow tract, main and lobar pulmonary arteries. There is four-chamber enlargement of the heart. There is no mediastinal hematoma. There is no pathologically enlarged mediastinal lymphadenopathy. There is no pericardial wall thickening. There is no sizable pericardial effusion. There is underlying emphysema. There is a 12 mm right upper lobe apical nodule, image 35 of series 5, stable to comparison CT chest study 08/09/2017. There are reticular and nodular densities within th e left lateral costophrenic angle. There is a 6 mm nodular density within the lateral costophrenic angle, image 121. There are scattered granulomatous calcifications. There is no pleural effusion. Left-sided healed first and second rib fractures. No axillary lymphadenopathy. 3.2 cm hypoattenuating right thyroid nodule. Multilevel degenerative spondylosis of the thoracic spine with exuberant anterior osteophyte formation upper thoracic spine. Left subclavian dual-chamber pacemaker device with right atrial and ventricular leads. Abdomen/pelvis: There are diffuse atherosclerotic changes of the abdominal aorta. There is fusiform aneurysmal dilatation of the infrarenal abdominal aorta measuring 3.2 cm AP. The abdominal aorta tapers in diameter distally. There is mild fusiform dilatation of the common iliac arteries. There is no definite evidence of an acute dissection of the abdominal aorta. There is no retroperitoneal hematoma. There is no hemoperitoneum. The celiac and superior mesenteric arteries are patent with stenotic appearance of the proximal celiac artery with poststenotic dilatation. The renal and inferior mesenteric arteries appear patent. Conspicuity and characterization of visceral attenuation abnormalities is compromised during the arterial phase of enhancement. There is a relative diffuse decrease in liver attenuation. The gallbladder is visualized. There is no biliary duct dilatation. Characterization of the spleen is limited. The pancreatic duct does not appear dilated. There is moderate nodular thickening of the left adrenal gland as previously demonstrated. There are bilateral hypodense renal cortical lesions. One of the larger hypodense lesions arising from the lateral left mid kidney measures 2.6 cm in size. No renal calculus. No hydronephrosis. There is a right-sided diverting colostomy. There is redemonstration of a parastomal hernia containing loops of small bowel. The small bowel does not appear dilated. The appendix is not convincingly visualized. There are no pericecal inflammatory changes. There is a diffuse colonic diverticulosis. There is extensive diverticulosis of the sigmoid colon. There are no definite associated pericolonic inflammatory changes. The prostate gland is enlarged. There is nonfocal thickening of the urinary bladder wall. Multilevel degenerative spondylosis of the lumbar spine. IMPRESSION: Nonaneurysmal thoracic aorta. No evidence of acute thoracic aortic dissection. 12 mm right upper lobe pulmonary nodule. 6 mm nodule left lateral costophrenic angle. Follow-up is needed to exclude malignancy. 3.2 cm hypoattenuating right thyroid nodule. Correlation with TFTs and follow-up elective ultrasound thyroid study is recommended as indicated. 3.2 cm AP infrarenal abdominal aortic aneurysm. No evidence of acute abdominal aortic aneurysm. Follow-up is recommended. Possible hepatic steatosis. Moderate fusiform thickening of the left adrenal gland. Stable. Hypodense renal cortical lesions, probable cysts. Consider further characterization with follow-up elective ultrasound study as indicated. Right-sided diverting colostomy with parastomal hernia containing loops of small bowel as previously demonstrated. Colonic diverticulosis without definite findings of acute diverticulitis. Enlarged prostate gland with nonfocal urinary bladder wall thickening. Correlate clinically for possible chronic bladder outlet obstruction. Additional nonacute findings as described above. ED NOTE Observed: 02/02/2018 Status: COMPLETED Source: [place] 8:02 PM [facility] RE[facility] HNO ID: [id number] Author: Antonio Dixon RN Service: Emergency Medicine Author Type: Registered Nurse Type: ED Notes Filed: 02/02/2018 8:02 PM Note Text: Pt to CT ED NOTE Observed: 02/02/2018 Status: COMPLETED Source: [place] 7:45 PM [facility] REPOSITORY HNO ID: [id number] Author: Antonio Dixon RN Service: Emergency Medicine Author Type: Registered Nurse Type: ED Notes Filed: 02/02/2018 7:45 PM Note Text: Pts Cpap settings at home is 15. ED NOTE Observed: 02/02/2018 Status: COMPLETED Source: [place] 7:18 PM [facility] REPOSITORY HNO ID: [id number] Author: Antonio KingRnBeth Dixon RN Service: Emergency Medicine Author Type: Registered Nurse Type: ED Notes Filed: 02/02/2018 7:19 PM Note Text: Sejal from CT made aware that pt is ready for CT ED NOTE Observed: 02/02/2018 Status: COMPLETED Source: [place] 7:17 PM [facility] REPOSITORY HNO ID: [id number] Author: Antonio Dixon RN Service: Emergency Medicine Author Type: Registered Nurse Type: ED Notes Filed: 02/02/2018 7:17 PM Note Text: Report obtained, assuming care of pt at this time. ED NOTE Observed: 02/02/2018 Status: COMPLETED Source: [place] 6:59 PM [facility] REPOSITORY HNO ID: [id number] Author: Herbert Whiting RN Service: Emergency Medicine Author Type: Registered Nurse Type: ED Notes Filed: 02/02/2018 6:59 PM Note Text: Pt placed on continuous opal miner, automatic bp cuff, and continual pulse ox. ED NOTE Observed: 02/02/2018 Status: COMPLETED Source: [place] 6:20 PM [facility] REPOSITORY HNO ID: [id number] Author: Herbert KingRnBeth Whiting RN Service: Emergency Medicine Author Type: Registered Nurse Type: ED Notes Filed: 02/02/2018 6:21 PM Note Text: Per dr. Zheng give nitro after morphine kicks in and if bp still above >140 HEMOGRAM/DIFF Collected: 02/02/2018 Status: F Source: [facility] 6:14 PM [facility] REPOSITORY TYPE CODE TESTS RESULT OUT OF REFERENCE UNITS RANGE LAB WBC(LOINC) 4.23-9.07 thou/cmm WBC High 9.35 LAB RBC(LOINC) 4.63-6.08 mil/cmm Low RBC 4.33 LAB HGB(LOINC) 13.7-17.5 g/dL Low Hgb 13.5 LAB HCT(LOINC) 40.1-51.0 % Low Hct 39.7 LAB MCV(LOINC) 83.2-95.6 fl MCV 91.7 LAB MCH(LOINC) 25.7-32.2 pg MCH 31.2 LAB MCHC(LOINC 32.3-36.5 % ) MCHC 34.0 LAB RDW(LOINC) 11.6-14.4 % RDW 13.5 LAB RDWSD(LOIN 36.1-45.8 fl C) RDW SD High 45.9 LAB PLT(LOINC) 141-365 thou/cmm Platelet 263 LAB MPV(LOINC) 8.7-12.0 fl MPV 10.7 LAB SEG(LOINC) % Seg Neutrophil 75.9 LAB IGRE(LOINC % ) Immature Grans 0.40 LAB LYMPH(LOIN % C) Lymphocyte 15.2 LAB MNO(LOINC) % Monocyte 6.5 LAB EOSIN(LOIN % C) Eosinophil 1.7 LAB BASO(LOINC % ) Basophil 0.3 LAB SEGN(LOINC 1.78-5.38 thou/cmm ) Abs. High Neut (ANC) 7.10 LAB IGAB(LOINC 0.00-0.05 thou/cmm ) Abs Immature Grans 0.04 LAB LYMN(LOINC 0.84-2.85 thou/cmm ) Abs. Lymph 1.42 LAB MONON(LOIN 0.30-0.82 thou/cmm C) Abs. [place] 0.61 LAB EOSN(LOINC 0.04-0.54 thou/cmm ) Abs. Eosin 0.16 LAB BASON(LOIN 0.01-0.08 thou/cmm C) Abs. Baso 0.03 Performed By: #### [id number] #### [place] [id number] BASIC PANEL Collected: 02/02/2018 Status: F Source: [facility] 6:14 PM HEALTH SYSTEM REPOSITORY TYPE CODE TESTS RESULT OUT OF REFERENCE UNITS RANGE LAB NA(LOINC) 136-145 mEq/L Sodium Blood 140 LAB K(LOINC) 3.5-5.1 mEq/L Potassium Blood 3.6 LAB CL(LOINC) 98-107 mEq/L Chloride Blood 104 LAB CO2(LOINC) 21-32 mEq/L CO2 Blood 30 LAB GLU(LOINC) 70-99 mg/dL Glucose High Blood 148 LAB BUN(LOINC) 7-18 mg/dL BUN Blood 13 LAB CREA(LOINC 0.67-1.17 mg/dL ) Creatinine Blood 0.93 LAB CA(LOINC) 8.5-10.1 mg/dL Calcium Blood 9.3 LAB ANGAP(LOIN 8-16 C) Anion Gap 10 Performed By: #### P8 #### [facility] [address] [address] ECU TROPONIN I Collected: 02/02/2018 Status: F Source: [facility] 6:14 PM HEALTH SYSTEM REPOSITORY TYPE CODE TESTS RESULT OUT OF REFERENCE UNITS RANGE LAB ERTRP(LOINC 0.015-0.045 ng/ml ) ECU Troponin I < 0.015 Performed By: #### ERTRP #### [facility] [address] [address] CHEST 1 VIEW Observed: 02/02/2018 Status: F Source: [facility] 5:56 PM HEALTH SYSTEM REPOSITORY Performed at [facility] APPROVED BY: Cherise Cedeño MD EXAM TITLE: CHEST 1 VIEW DATE: 02/02/2018 17:47 COMPARISON: Chest x-ray 11/18/2017 CLINICAL INDICATION/HISTORY: Chest pain and shortness of breath TECHNIQUE: Portable AP view the chest. FINDINGS: Left chest pacemaker with leads profiling the right atrium and right ventricle. The cardiomediastinal silhouette is unremarkable. No pneumothorax. The costophrenic angles are clear bilaterally. No areas of consolidation. The pulmonary vessels are within normal limits. Sternotomy wires are present. IMPRESSION: No evidence of acute intrathoracic process. ED PROV NOTE Observed: 02/02/2018 Status: COMPLETED Source: [place] 5:33 PM CLINIC OTHER CAMPUS REPOSITORY HNO ID: [id number] Author: Kajal Laurent MD Service: Emergency Medicine Author Type: Physician Type: ED Provider Notes Filed: 02/03/2018 3:48 PM Note Text: ED Provider Note Patient Name: Maxx Knott SERVICE DATE: 02/02/18 History Patient presents with: Chest Pain: pt arrives to ED w/ midsternal chest pain beginning 30 min ago. Pain raidates into back. +SOB, +lightheadedness, +n/v. Pt has Hx of PA x 2, CABG x3 vessels. Pt also complains of ostomy bag pain, intestine swelling and protruduing into ostomy bag. This is a 67-year-old male presents for evaluation of chest pain he states the chest pain started suddenly about one hour prior to arrival he stated that is pressure-like in nature he had some nausea some vomiting some diaphoresis. As well as some lightheadedness. He does have a history of PA ?2 as well as CABG. He states that he also had protrusion of the colostomy bag to the right lower quadrant supposed to get this fixed but has not followed up. The patient states that he does not have any pleuritic chest pain is more pressure-like. He took some nitroglycerin did help at the time. He called also taken aspirin at home. He stated the pain was also going to his back, no tearing sensation. Is also complaining of his ostomy prolapse that happened within this time frame. 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 - Peritonitis ([facility]) PAST SURGICAL HISTORY Procedure Laterality Date - APPENDECTOMY HX - COLOSTOMY 07/2016 Diverting Loop Colostomy of the Transverse Colon - HEART SURGERY HX triple bypass 10 yrs ago - PPM IMPLANT - STENT - CORONARY FAMILY HISTORY Problem Relation Age of Onset - Coronary Artery Disease Father - Hyperlipidemia Father Social History Social History Main Topics - Smoking status: Current Every Day Smoker Packs/day: 0.50 Years: 35.00 Types: Pipe, Cigarettes - Smokeless tobacco: Never Used Comment: Quit cigarettes 11-16-16 now smoking 4 pipes as of 04-18-17 - Alcohol use No - Drug use: No - Sexual activity: Not Currently ALLERGIES Allergen Reactions - Altaseptic Unknown - Brilinta [Ticagrelo* Unknown - Crestor [Rosuvastat* Myalgia - Hctz [Amiloride-Hyd* Swelling - Moxifloxacin Swelling - Other [place]-3s Unknown brelinta - Ramipril Swelling Other reaction(s): Facial swelling - Simvastatin Myalgia Other reaction(s): Facial swelling - Voltaren [Diclofena* Unknown Review of Systems Constitutional: Negative for chills and fever. HENT: Negative for ear pain and sore throat. Eyes: Negative for pain and redness. Respiratory: Positive for chest tightness and shortness of breath. Negative for cough. Cardiovascular: Negative for chest pain and palpitations. Gastrointestinal: Negative for abdominal pain and diarrhea. Genitourinary: Negative for dysuria and flank pain. Musculoskeletal: Negative for myalgias and neck stiffness. Skin: Negative for color change and rash. Neurological: Negative for seizures and weakness. Psychiatric/Behavioral: Negative for agitation and hallucinations. Physical Exam BP 166/57 Pulse 80 Temp (Src) 99.1 (Oral) Resp 18 Ht 5' 8 (1.73m) Wt 195 lb (88.5kg) SpO2 96% BMI 29.66 kg/(m2). Physical Exam Constitutional: He is oriented to person, place, and time. He appears well-developed. No distress. HENT: Head: Normocephalic and atraumatic. Eyes: Pupils are equal, round, and reactive to light. Left eye exhibits no discharge. Neck: Normal range of motion. No tracheal deviation present. Cardiovascular: Normal rate, regular rhythm and normal heart sounds. No murmur heard. Pulmonary/Chest: Effort normal and breath sounds normal. He has no wheezes. He exhibits no tenderness. Abdominal: Soft. He exhibits no distension and no mass. There is no tenderness. There is no rebound. Ostomy bag present in the right aspect of the abdomen, protruding with obvious prolapse, color is pink, without dusky color Musculoskeletal: Normal range of motion. He exhibits no edema, tenderness or deformity. Neurological: He is alert and oriented to person, place, and time. No cranial nerve deficit. Skin: Skin is warm. No erythema. Diagnostic Testing ED Labs Ordered and Reviewed - No data to display Procedures Results for orders placed or performed during the hospital encounter of 02/02/18 XR CHEST 1V FRONTAL Result Value Ref Range Transplant Coordinator EXAM TITLE: CHEST 1 VIEW DATE: 02/02/2018 17:47 COMPARISON: Chest x-ray 11/18/2017 CLINICAL INDICATION/HISTORY: Chest pain and shortness of breath TECHNIQUE: Portable AP view the chest. FINDINGS: Left chest pacemaker with leads profiling the right atrium and right ventricle. The cardiomediastinal silhouette is unremarkable. No pneumothorax. The costophrenic angles are clear bilaterally. No areas of consolidation. The pulmonary vessels are within normal limits. Sternotomy wires are present. IMPRESSION: No evidence of acute intrathoracic process. CTA CHEST (GATED) WO/W IVCON Result Value Ref Range Transplant Coordinator CT ANGIO CHEST WITHOUT AND WITH IV CONTRAST AND CT ANGIO ABDOMEN AND PELVIS WITH IV CONTRAST WITH 3-D POSTPROCESSING: CLINICAL INDICATION: Back pain. Chest pain. COMPARISON: CT abdomen and pelvis study 11/18/2017, CT chest, abdomen and pelvis study 08/09/[address] abdomen and pelvis studies 07/21/2017 and 09/20/2016. An initial series of axial images are obtained of the chest from above the lung apices through the bases before IV contrast. Series of axial images are then obtained of the chest, abdomen and pelvis during the arterial phase of enhancement following IV contrast with centerline, coronal and sagittal reformations including MIP and shaded surface display 3-D postprocessing. Contrast: 150 mL of Omnipaque [address] Dose-Length Product: 1764 mGy*cm CT Dose Reduction Employed: Automated exposure control Chest: The noncontrast images demonstrate no definite evidence of an acute intramural hematoma of the thoracic aorta allowing for postope rative changes of CABG. The thoracic aorta is nonaneurysmal. There is no definite evidence of an acute dissection of the thoracic aorta. There is uniform opacification of the pulmonary outflow tract, main and lobar pulmonary arteries. There is four-chamber enlargement of the heart. There is no mediastinal hematoma. There is no pathologically enlarged mediastinal lymphadenopathy. There is no pericardial wall thickening. There is no sizable pericardial effusion. There is underlying emphysema. There is a 12 mm right upper lobe apical nodule, image 35 of series 5, stable to comparison CT chest study 08/09/2017. There are reticular and nodular densities within the left lateral costophrenic angle. There is a 6 mm nodular density within the lateral costophrenic angle, image 121. There are scattered granulomatous calcifications. There is no pleural effusion. Left-sided healed first and second rib fractures. No axillary lymphadenopathy. 3.2 cm hypoattenuating right thyroid nodule. Multilevel degenerative spondylosis of the thoracic spine with exuberant anterior osteophyte formation upper thoracic spine. Left subclavian dual-chamber pacemaker device with right atrial and ventricular leads. Abdomen/pelvis: There are diffuse atherosclerotic changes of the abdominal aorta. There is fusiform aneurysmal dilatation of the infrarenal abdominal aorta measuring 3.2 cm AP. The abdominal aorta tapers in diameter distally. There is mild fusiform dilatation of the common iliac arteries. There is no definite evidence of an acute dissection of the abdominal aorta. There is no retroperitoneal hematoma. There is no hemoperitoneum. The celiac and superior mesenteric arteries are patent with stenotic appearance of the proximal celiac artery with poststenotic dilatation. The renal and inferior mesenteric arteries appear patent. Conspicuity and characterization of visceral attenuation abn ormalities is compromised during the arterial phase of enhancement. There is a relative diffuse decrease in liver attenuation. The gallbladder is visualized. There is no biliary duct dilatation. Characterization of the spleen is limited. The pancreatic duct does not appear dilated. There is moderate nodular thickening of the left adrenal gland as previously demonstrated. There are bilateral hypodense renal cortical lesions. One of the larger hypodense lesions arising from the lateral left mid kidney measures 2.6 cm in size. No renal calculus. No hydronephrosis. There is a right-sided diverting colostomy. There is redemonstration of a parastomal hernia containing loops of small bowel. The small bowel does not appear dilated. The appendix is not convincingly visualized. There are no pericecal inflammatory changes. There is a diffuse colonic diverticulosis. There is extensive diverticulosis of the sigmoid colon. There ar e no definite associated pericolonic inflammatory changes. The prostate gland is enlarged. There is nonfocal thickening of the urinary bladder wall. Multilevel degenerative spondylosis of the lumbar spine. IMPRESSION: Nonaneurysmal thoracic aorta. No evidence of acute thoracic aortic dissection. 12 mm right upper lobe pulmonary nodule. 6 mm nodule left lateral costophrenic angle. Follow-up is needed to exclude malignancy. 3.2 cm hypoattenuating right thyroid nodule. Correlation with TFTs and follow-up elective ultrasound thyroid study is recommended as indicated. 3.2 cm AP infrarenal abdominal aortic aneurysm. No evidence of acute abdominal aortic aneurysm. Follow-up is recommended. Possible hepatic steatosis. Moderate fusiform thickening of the left adrenal gland. Stable. Hypodense renal cortical lesions, probable cysts. Consider further characterization with follow-up elective ultrasound study as indicated. Right-side d diverting colostomy with parastomal hernia containing loops of small bowel as previously demonstrated. Colonic diverticulosis without definite findings of acute diverticulitis. Enlarged prostate gland with nonfocal urinary bladder wall thickening. Correlate clinically for possible chronic bladder outlet obstruction. Additional nonacute findings as described above. CTA ABD/PEL W IVCON Result Value Ref Range Transplant Coordinator CT ANGIO CHEST WITHOUT AND WITH IV CONTRAST AND CT ANGIO ABDOMEN AND PELVIS WITH IV CONTRAST WITH 3-D POSTPROCESSING: CLINICAL INDICATION: Back pain. Chest pain. COMPARISON: CT abdomen and pelvis study 11/18/2017, CT chest, abdomen and pelvis study 08/09/[address] abdomen and pelvis studies 07/21/2017 and 09/20/2016. An initial series of axial images are obtained of the chest from above the lung apices through the bases before IV contrast. Series of axial images are then obtained of the chest, abdomen and pelvis during the arterial phase of enhancement following IV contrast with centerline, coronal and sagittal reformations including MIP and shaded surface display 3-D postprocessing. Contrast: 150 mL of Omnipaque [address] Dose-Length Product: 1764 mGy*cm CT Dose Reduction Employed: Automated exposure control Chest: The noncontrast images demonstrate no definite evidence of an acute intramural hematoma of the thoracic aorta allowing for postope rative changes of CABG. The thoracic aorta is nonaneurysmal. There is no definite evidence of an acute dissection of the thoracic aorta. There is uniform opacification of the pulmonary outflow tract, main and lobar pulmonary arteries. There is four-chamber enlargement of the heart. There is no mediastinal hematoma. There is no pathologically enlarged mediastinal lymphadenopathy. There is no pericardial wall thickening. There is no sizable pericardial effusion. There is underlying emphysema. There is a 12 mm right upper lobe apical nodule, image 35 of series 5, stable to comparison CT chest study 08/09/2017. There are reticular and nodular densities within the left lateral costophrenic angle. There is a 6 mm nodular density within the lateral costophrenic angle, image 121. There are scattered granulomatous calcifications. There is no pleural effusion. Left-sided healed first and second rib fractures. No axillary lymphadenopathy. 3.2 cm hypoattenuating right thyroid nodule. Multilevel degenerative spondylosis of the thoracic spine with exuberant anterior osteophyte formation upper thoracic spine. Left subclavian dual-chamber pacemaker device with right atrial and ventricular leads. Abdomen/pelvis: There are diffuse atherosclerotic changes of the abdominal aorta. There is fusiform aneurysmal dilatation of the infrarenal abdominal aorta measuring 3.2 cm AP. The abdominal aorta tapers in diameter distally. There is mild fusiform dilatation of the common iliac arteries. There is no definite evidence of an acute dissection of the abdominal aorta. There is no retroperitoneal hematoma. There is no hemoperitoneum. The celiac and superior mesenteric arteries are patent with stenotic appearance of the proximal celiac artery with poststenotic dilatation. The renal and inferior mesenteric arteries appear patent. Conspicuity and characterization of visceral attenuation abn ormalities is compromised during the arterial phase of enhancement. There is a relative diffuse decrease in liver attenuation. The gallbladder is visualized. There is no biliary duct dilatation. Characterization of the spleen is limited. The pancreatic duct does not appear dilated. There is moderate nodular thickening of the left adrenal gland as previously demonstrated. There are bilateral hypodense renal cortical lesions. One of the larger hypodense lesions arising from the lateral left mid kidney measures 2.6 cm in size. No renal calculus. No hydronephrosis. There is a right-sided diverting colostomy. There is redemonstration of a parastomal hernia containing loops of small bowel. The small bowel does not appear dilated. The appendix is not convincingly visualized. There are no pericecal inflammatory changes. There is a diffuse colonic diverticulosis. There is extensive diverticulosis of the sigmoid colon. There ar e no definite associated pericolonic inflammatory changes. The prostate gland is enlarged. There is nonfocal thickening of the urinary bladder wall. Multilevel degenerative spondylosis of the lumbar spine. IMPRESSION: Nonaneurysmal thoracic aorta. No evidence of acute thoracic aortic dissection. 12 mm right upper lobe pulmonary nodule. 6 mm nodule left lateral costophrenic angle. Follow-up is needed to exclude malignancy. 3.2 cm hypoattenuating right thyroid nodule. Correlation with TFTs and follow-up elective ultrasound thyroid study is recommended as indicated. 3.2 cm AP infrarenal abdominal aortic aneurysm. No evidence of acute abdominal aortic aneurysm. Follow-up is recommended. Possible hepatic steatosis. Moderate fusiform thickening of the left adrenal gland. Stable. Hypodense renal cortical lesions, probable cysts. Consider further characterization with follow-up elective ultrasound study as indicated. Right-side d diverting colostomy with parastomal hernia containing loops of small bowel as previously demonstrated. Colonic diverticulosis without definite findings of acute diverticulitis. Enlarged prostate gland with nonfocal urinary bladder wall thickening. Correlate clinically for possible chronic bladder outlet obstruction. Additional nonacute findings as described above. CBC + AUTO DIFF (AK,AV,EU,FV,HL,DEMARCO,MM,SP) Result Value Ref Range WBC 9.35 (H) 4.23 - 9.07 thou/cmm RBC 4.33 (L) 4.63 - 6.08 mil/cmm HGB 13.5 (L) 13.7 - 17.5 g/dL Hematocrit 39.7 (L) 40.1 - 51.0 % MCV 91.7 83.2 - 95.6 fl MCH 31.2 25.7 - 32.2 pg MCHC 34.0 32.3 - 36.5 % RDW 13.5 11.6 - 14.4 % RDW-SD 45.9 (H) 36.1 - 45.8 fl Platelet Count 263 141 - 365 thou/cmm MPV 10.7 8.7 - 12.0 fl Seg Neutrophil 75.9 % Immature Grans 0.40 % Lymphocyte 15.2 % Monocyte 6.5 % Eosinophil 1.7 % Basophil 0.3 % Abs. Neut(Anc) 7.10 (H) 1.78 - 5.38 thou/cmm Immature Grans # 0.04 0.00 - 0.05 thou/cmm Abs. Lymph 1.42 0.84 - 2.85 thou/cmm Abs. [place] 0.61 0.30 - 0.82 thou/cmm Abs. Eosin 0.16 0.04 - 0.54 thou/cmm Abs. Baso 0.03 0.01 - 0.08 thou/cmm BASIC METABOLIC PANEL (AK,AV,EU,FV,HL,DEMARCO,MM,SP) Result Value Ref Range Sodium 140 136 - 145 mEq/L Potassium 3.6 3.5 - 5.1 mEq/L Chloride 104 98 - 107 mEq/L CO2 30 21 - 32 mEq/L Glucose 148 (H) 70 - 99 mg/dL BUN 13 7 - 18 mg/dL Creatinine 0.93 0.67 - 1.17 mg/dL Calcium 9.3 8.5 - 10.1 mg/dL Anion Gap 10 8 - 16 ECU TROPONIN I (AR ED) Result Value Ref Range ECU Troponin I <0.015 0.015 - 0.045 ng/ml MDRD GFR Result Value Ref Range eGFR >60 >60mL/min/1.73m2 ECU TROPONIN I (AR ED) Result Value Ref Range ECU Troponin I 0.017 0.015 - 0.045 ng/ml TROPONIN I (AR) Result Value Ref Range Troponin I <0.015 0.015 - 0.045 ng/ml CBC + PLT (AK,AV,EU,FV,HL,DEMARCO,MM,SP) Result Value Ref Range WBC 9.06 4.23 - 9.07 thou/cmm RBC 4.18 (L) 4.63 - 6.08 mil/cmm HGB 13.0 (L) 13.7 - 17.5 g/dL Hematocrit 38.4 (L) 40.1 - 51.0 % MCV 91.9 83.2 - 95.6 fl MCH 31.1 25.7 - 32.2 pg MCHC 33.9 32.3 - 36.5 % RDW 14.0 11.6 - 14.4 % RDW-SD 47.6 (H) 36.1 - 45.8 fl Platelet Count 239 141 - 365 thou/cmm MPV 10.4 8.7 - 12.0 fl COMPREHENSIVE METABOLIC PANEL (AK,AV,EU,FV,HL,DEMARCO,MM,SP) Result Value Ref Range Sodium 141 136 - 145 mEq/L Potassium 3.1 (L) 3.5 - 5.1 mEq/L Chloride 103 98 - 107 mEq/L CO2 34 (H) 21 - 32 mEq/L Glucose 135 (H) 70 - 99 mg/dL BUN 15 7 - 18 mg/dL Creatinine 0.97 0.67 - 1.17 mg/dL Calcium 9.3 8.5 - 10.1 mg/dL Albumin 3.2 (L) 3.4 - 5.0 g/dL Protein, Total 6.4 6.4 - 8.2 g/dL AST 12 9 - 37 U/L ALT 20 12 - 78 U/L Alkaline Phosphatase 83 46 - 116 U/L Bilirubin, Total 0.2 0.2 - 1.0 mg/dL Anion Gap 7 (L) 8 - 16 MDRD GFR Result Value Ref Range eGFR >60 >60mL/min/1.73m2 EKG (AK,AV,EU,FV,HL,DEMARCO,MM,SP) Result Value Ref Range Transplant Coordinator NAME : MAXX KNOTT PID : [id number] : 1950 Gender : Male Race : ORD : [id number] Procedure Date : Feb 02 2018 17:24 Edit Date : Feb 03 2018 04:49 Diagnosis:NORMAL SINUS RHYTHM T WAVE ABNORMALITY, CONSIDER ANTERIOR ISCHEMIA ABNORMAL ECG WHEN COMPARED WITH ECG OF 18-NOV-2017 08:36, T WAVE INVERSION NOW EVIDENT IN ANTERIOR LEADS Confirmed by Vianney Cantu ([id number]) on 02/03/2018 4:49:22 AM Ventricular Rate : 71 BPM Atrial Rate : 71 BPM P-R Interval : 204 ms QRS Duration : 112 ms Q-T Interval : 404 ms QTC Calculation(Bezet) : 439 ms P [place] : 47 degrees R [place] : 37 degrees T [place] : 29 degrees Test Reason : Arrhythmia Location : 4 : [facility] EM Overread By : Vianney Cantu Editted By : Vianney Cantu Referred By : LATANYA ZHENG Acquired by : Marcelo Jewell EKG Result Value Ref Range Transplant Coordinator NAME : MAXX KNOTT PID : [id number] : 1950 Gender : Male Race : ORD : Procedure Date : Feb 02 2018 22:24 Edit Date : Feb 03 2018 04:59 Diagnosis:AV dual-paced rhythm with prolonged AV conduction ABNORMAL ECG WHEN COMPARED WITH ECG OF 02-FEB-2018 17:24, CURRENT UNDETERMINED RHYTHM PRECLUDES RHYTHM COMPARISON, NEEDS REVIEW QUESTIONABLE CHANGE IN QRS DURATION Confirmed by Vianney Cantu ([id number]) on 02/03/2018 4:59:49 AM Ventricular Rate : 60 BPM Atrial Rate : 60 BPM P-R Interval : 232 ms QRS Duration : 172 ms Q-T Interval : 514 ms QTC Calculation(Bezet) : 514 ms P [place] : -28 degrees R [place] : 81 degrees T [place] : 42 degrees Test Reason : Location : 4 : [facility] EM Overread By : Vianney Cantu Editted By : Vianney Cantu Referred By : LATANYA ZHENG Acquired by : Shazia Ngo ED Course / Clinical Impression Clinical Impressions as of Feb 03 1453 Chest pain, unspecified type Pulmonary nodule MDM / Disposition / Plan MDM Due the patient's chest pain and the radiation to the back, we are concerned about possible dissection considering the patient's hypertension. The CTA was ordered. CTA was negative for any dissection. The patient be admitted for evaluation of his chest pain. Initially, an EKG that was ordered for the patient was found in the wrong name second EKG was done which showed the patient is ventricularly paced without any ST segment elevation or depression. Initial troponin is negative x1. He had already taken aspirin at home, he was given nitro without relief and thus given morphine. He was foudn to have a prolapsed ostomy, ice was placed and this was reduced without issue after placement in trendelenburg. The patient is significantly at high risk considering his previous MIs and thus will need to be admitted for cardiac evaluation. The patient was ADMITTED TO: Regular nursing floor. Condition at time of disposition: stable SIGNATURE: MD Ron Moore (Res) MD Lien Resident 02/03/18 [id number] Attending Note I evaluated the patient and personally participated in the nelson components. I agree with the resident's findings and plan as documented and have discussed the case and management of the patient's care with the resident. Signature: Kajal Laurent MD Date: 02/03/2018 Time: 3:48 PM Kajal Laurent MD 02/03/18 1548 ED NOTE Observed: 02/02/2018 Status: COMPLETED Source: [place] 5:25 PM CLINIC OTHER CAMPUS REPOSITORY HNO ID: [id number] Author: Lynn KingRn) MITCHELL Galvan Service: (none) Author Type: Registered Nurse Type: ED Notes Filed: 02/02/2018 5:25 PM Note Text: Bed: 13-ED Expected date: Expected time: Means of arrival: Comments: triage EKG (AK,AV,EU,FV,HL,DEMARCO,MM,SP) Observed: Status: F Source: [place] 02/02/2018 5:24 PM [facility] OTHER CAMPUS REPOSITORY NAME : MAXX KNOTT PID : [id number] : 1950 Gender : Male Race : ORD : [id number] Procedure Date : Feb 02 2018 17:24 Edit Date : Feb 03 2018 04:49 Diagnosis:NORMAL SINUS RHYTHM T WAVE ABNORMALITY, CONSIDER ANTERIOR ISCHEMIA ABNORMAL ECG WHEN COMPARED WITH ECG OF 18-NOV-2017 08:36, T WAVE INVERSION NOW EVIDENT IN ANTERIOR LEADS Confirmed by Vianney Cantu ([id number]) on 02/03/2018 4:49:22 AM Ventricular Rate : 71 BPM Atrial Rate : 71 BPM P-R Interval : 204 ms QRS Duration : 112 ms Q-T Interval : 404 ms QTC Calculation(Bezet) : 439 ms P [place] : 47 degrees R [place] : 37 degrees T [place] : 29 degrees Test Reason : Arrhythmia Location : 4 : [facility] EM Overread By : Vianney Cantu Editted By : Vianney Cantu Referred By : LATANYA ZHENG Acquired by : Marcelo Jewell PROGRESS Observed: 02/01/2018 Status: COMPLETED Source: [place] 1:16 PM [facility] [place] REPOSITORY HNO ID: [id number] Author: Eligio (Rn) MITCHELL Banks Service: (none) Author Type: Registered Nurse Type: Progress Notes Filed: 02/01/2018 1:21 PM Note Text: PRIMARY CARE COORDINATION QUICK NOTE Provider Action/FYI Letter sent Patient identified by name and date . Unable to reach patient after several attempts. Patient continues to utilize ED frequently. Will send PCC contact letter. If no contact within 7 days, will discharge from primary care coordination. MAIA Pierce, courtroom clerkField Specialist [facility] [phone] [facility] Observed: 02/01/2018 Status: COMPLETED Source: [place] 12:00 AM [facility] REPOSITORY Patient Outreach (INTMMN) MAXX KNOTT ([id number]) 1950 M Date Time Provider Department 02/01/18 ELIGIO BANKS (RN) INTMMN During your visit today, we recorded the following information about you: Eligio Banks RN, RN 02/01/2018 1:21 PM Signed PRIMARY CARE COORDINATION QUICK NOTE Provider Action/FYI Letter sent Patient identified by name and date . Unable to reach patient after several attempts. Patient continues to utilize ED frequently. Will send PCC contact letter. If no contact within 7 days, will discharge from primary care coordination. MAIA Pierce, courtroom clerkField Specialist [facility] [phone] Allergies As of Date: 02/01/2018 Noted Allergy Reaction ALTASEPTIC 12/17/2016 16 - Unknown BRILINTA (TICAGRELOR) 08/09/2017 16 - Unknown CRESTOR (ROSUVASTATIN CALCIUM) 12/17/2016 17 - Myalgia HCTZ (AMILORIDE-HYDROCHLOROTHIAZI*12/17/2016 7 - Swelling MOXIFLOXACIN 7 - Swelling OTHER OMEGA-3S 07/06/2017 16 - Unknown Comments: brelinta RAMIPRIL 12/17/2016 7 - Swelling Comments: Other reaction(s): Facial swelling SIMVASTATIN 12/17/2016 17 - Myalgia Comments: Other reaction(s): Facial swelling VOLTAREN (DICLOFENAC SODIUM) 12/17/2016 16 - Unknown Date Reviewed: 12/02/2017 Reviewed by: Michell KingRn) MITCHELL Vigil - Fully Assessed Reason for Visit: Field Specialist- Other [[id number]] Cmt: PCC contact letter Prescriptions as of 02/01/2018 Sig: RANOLAZINE ER 500 MG TABLET,E* Take 1 tablet by mouth twice * ONDANSETRON HCL 4 MG TABLET Take 4 mg by mouth every 6 ho* B COMPLEX ORAL Take 1 tablet by mouth once d* ASPIRIN 81 MG TABLET,DELAYED * Take 81 mg by mouth once dominik* CYCLOBENZAPRINE 10 MG TABLET Take 1 tablet by mouth at bed* AMLODIPINE 10 MG TABLET Take 10 mg by mouth once dominik* LORATADINE 10 MG CAPSULE Take 1 capsule every day by o* PRAVASTATIN 40 MG TABLET Take 40 mg by mouth daily at * GABAPENTIN 300 MG CAPSULE Take 2 capsules by mouth dominik* METOPROLOL SUCCINATE ER 100 M* Take 1 tablet by mouth once d* QUETIAPINE 200 MG TABLET Take 2 tablets by mouth daily* COMPOUNDED PRESCRIPTION One Piece Ostomy Pouch Item T* COMPOUNDED PRESCRIPTION Paste: Convatec Stomahesive * MULTIVITAMIN AND MINERALS ORAL Take 1 capsule by mouth once * ALBUTEROL SULFATE HFA 90 MCG/* Inhale 2 Puffs as instructed * FLUTICASONE 50 MCG/ACTUATION * Use 1 [place] in the nose once * NITROGLYCERIN 0.4 MG SUBLINGU* PLACE ONE(1) TABLET UNDER TON* LOSARTAN 100 MG TABLET Take 100 mg by mouth once roddy* FUROSEMIDE 20 MG TABLET Take 40 mg by mouth once dominik* Problem List As Of Date 02/01/2018 Noted Resolved 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 Chest pain [R07.9] INVALID FOR*12/02/2017 Priority: A More... Hypertensive crisis [I16.9] INVALID FOR* Priority: B More... Healthcare maintenance [Z00.00] INVALID FOR* Priority: M More... Malnutrition of mild degree (HCC) [E44.1] INVALID FOR* Priority: L More... CHF exacerbation (HCC) [I50.9] INVALID FOR*12/02/2017 Diverticulitis of sigmoid colon [K57.32] INVALID FOR* Class: Recurrent More... Chronic systolic congestive heart failure (HCC)*INVALID FOR* Priority: J More... CAD (coronary artery disease) [I25.10] INVALID FOR* Priority: K More... Hypertensive heart disease with congestive hear*INVALID FOR* Priority: K Hypocalcemia [E83.51] INVALID FOR*06/19/2017 Hypernatremia [E87.0] INVALID FOR*06/19/2017 Hypokalemia [E87.6] INVALID FOR*06/19/2017 Parastomal hernia without obstruction or gangre*INVALID FOR* Abdominal aortic aneurysm without rupture (HCC)*INVALID FOR* Renal cysts, acquired, bilateral [N28.1] INVALID FOR* Arthritis [M19.90] INVALID FOR* Anxiety disorder [F41.9] INVALID FOR* Essential hypertension [I10] INVALID FOR* Nicotine use disorder, F17.2 [F17.200] INVALID FOR* Melena [K92.1] INVALID FOR* Fall [W19.XXXA] INVALID FOR* Abdominal pain [R10.9] INVALID FOR* Peristomal hernia [K46.9] INVALID FOR* Prolapse of intestine [K63.4] INVALID FOR*12/02/2017 Chronic narcotic use [F11.90] INVALID FOR* Chest pain [R07.9] INVALID FOR*12/02/2017 Follow-up and Disposition History Recorded Letter Text Bijan Perez MD [address] [place] [address] Eligio Banks RN February 01, 2018 Maxx Knott [id number] [facility] [id number] 1950 Dear Maxx Knott, We have been trying to contact you in regards to Care Coordination. Our efforts to reach you have been unsuccessful and would appreciate a call back at your earliest convenience at [phone]. If we haven't heard back from you within seven days, then we will assume that you are not interested in participating in the care coordination program. We look forward to assisting you in your journey to better health. Thank you and have a great day. Sincerely, Bijan Perez MD and Eligio Banks, RN, Third Loader Encounter Status:Closed by ELIGIO BANKS on 02/01/18 12 LEAD ELECTROCARDIOGRAM Observed: 12/20/2017 Status: F Source: [place] 1:30 PM [facility] REPOSITORY [facility] Cardiovascular Services [address] [place] [address] 12 Lead EKG 12/17/17 1111 MR#: [id number] Acct: [id number] Name: MAXX KNOTT Rep #: [id number] : 1950 67 From: Kassandra Lundberg MD Attending Dr: Status: DEP ER Ordering Dr: Gabriel Mandujano MD Date: 12/17/17 Location: ED Sex: M C Admitted: Test Reason : CP Blood Pressure : / mmHG Vent. Rate : 086 BPM Atrial Rate : 086 BPM P-R Int : 184 ms QRS Dur : 098 ms QT Int : 454 ms P-R-T Axes : 049 034 053 degrees QTc Int : 543 ms Normal sinus rhythm Nonspecific T wave abnormality Confirmed by LAUREEN METCALF, KASSANDRA ([id number]), copy editor LAMAR AHN ([id number]) on 12/20/2017 1:30:05 PM Referred By: NAZIA/ABY Confirmed By:KASSANDRA LUNDBERG MD 12/20/17 1330 Date Kassandra Lundberg MD CC: [facility]; Gabriel Mandujano MD Signed EMERGENCY DEPARTMENT Observed: 12/17/2017 Status: F Source: [place] SUMMARY 5:08 PM [facility] REPOSITORY [facility] Medical Records Department [address] [place] [address] Emergency Department Summary 12/17/17 1238 MR#: [id number] Acct: [id number] Name: AMXX KNOTT Rep #: [id number] : 1950 67 From: Gabriel Mandujano MD PCP: [place] Status: DEP ER - ER Visit Summary Date of Service: 12/17/17 Chief Complaint: Colostomy bag broke History of Present Illness: The patient is a 67 M who goes to the [facility]. He presents complaining that his colostomy bag broke approximately 30 minutes ago. States that he has a history of prolapse of his ostomy and that he is supposed to have this reversed at [facility] next month. He states that he does not remember the surgeon's name. On review of systems patient states that he has chest pain that began approximately 3-1/2 hours ago. It began while he was at rest. Some aching pain. Is 10 out of 10 at worst no 10 currently. Is worsened by walking periods relieved by rest. He is complains of nausea and shortness of breath with this. There is no radiation of the pain. Physical Examination: Vitals: Stable. Afebrile. General: Well-nourished and well-developed. Head: Normocephalic atraumatic. Neck: Supple, no lymphadenopathy. No JVD. Nontender. Cardiovascular: Regular rate and rhythm. No murmurs. Respiratory: No respiratory distress. Clear to auscultation bilaterally. Abdominal: Soft, moderate tenderness to palpation surrounding his ostomy. There is approximately 3 cm of prolapse. It is not dusky. nondistended, normal bowel sounds. No guarding, rebound, or peritoneal signs. Back: Nontender. Extremities: Nontender, no edema. Skin: Normal color, no rash. Neurologic: Alert and oriented 3. Cranial nerves II through XII are intact. Normal strength and sensation. Psych: Normal affect. Test Results: EKG is sinus at 86 and is unchanged from August of this year. Troponins negative. Chem-7 is more for glucose 154. CBC is marked for white count 11.7 with 80 segmented neutrophils and 13 lymphocytes. Chest x-ray is normal. Emergency Department Course and Treatment: Patient was seen by the ostomy nurse his stoma dressed and he tolerated this well. Patient is given Tylenol for pain. He was given aspirin for his chest pain. Treatment Plan: This time I have concerned about opiate seeking behavior in the patient. He has been here frequently. He is given multiple different stories about surgical follow-up for his prolapsed ostomy. The chest pain he complained of was in an after thought and only came up on review of systems. I do not feel that he needs to be admitted to the hospital. Also be instructed in follow-up with his surgeon as soon as possible as well as the [facility]. I do feel at this point patient needs to have a care plan he will be referred to case management. Disposition: Home in stable condition Impression: 1. Chest pain, atypical. 2. MARTIN score 4. 3. Colostomy prolapse, recurrent. This note was generated with Atos[employer] dictation software. It may contain incorrect words, spelling, and punctuation that were not noted in review of the chart prior to signing ED Disposition - Plan for ED Patient: Chief Complaint: Chest Pain Instructions: Discharge Instructions for Colostomy, ED Chest Pain Atypical Unkn Cause Referrals: [facility] [Primary Care Provider] - As soon as possible What to do if you have Problems For any increased pain, shortness of breath, bleeding, nausea or vomiting, chest pain, or any unexpected problems, contact your Primary Care Provider. Call [facility] ([phone]) or report to the closest Emergency Room. Call 911 if necessary. 12/17/17 1708 <Electronically signed by Gabriel Mandujano MD> Date Gabriel Mandujano MD Cosigner Signature (If Indicated): Date CC: [facility] CHEST 1 VIEW Observed: 12/17/2017 Status: F Source: [place] (PORTABLE) 11:28 AM [facility] REPOSITORY [facility] Imaging Services [address] [place] [address] [place] [address] Chest 1 View (Portable) MR#: [id number] Acct: [id number] Name: MAXX KNOTT Rep #: [id number] : 1950 67 From: Herbert Huang DO PCP: [place] [place] Status: PRE ER Study: Chest 1 View (Portable) Date of Exam: 12/17/17 Exam# [id number] Ordering Dr: Gabriel Mandujano MD STUDY: X-RAY CHEST REASON FOR EXAM: Male, 67 years old. Chest pain TECHNIQUE: Single AP portable view of the chest. COMPARISON: 09/19/2017 FINDINGS: Cardiac monitoring leads overlie the chest. Cardiac pacemaker is unchanged. The lungs are clear and expanded. There is no demonstrated pleural abnormality. Sternal cerclage wires and vascular clips are present from a prior sternotomy and coronary artery bypass graft procedure (CABG). Normal mediastinum and ireen. Normal visualized pulmonary arteries. Normal visualized aortic arch and descending thoracic aorta. Normal visualized thoracic spine. Normal visualized ribs, clavicles, and shoulders. There is focal eventration of the left hemidiaphragm which contains a small portion of gastric fundus. RAD/Chest 1 View (Portable) IMPRESSION: No acute process in the chest. Electronically Signed: Herbert HuangDO at 12:13 EDT Tel , Service support , CC: [facility]; Gabriel Mandujano MD Prep Room Supervisor: Signed CBC W/DIFF, AUTOMATED Collected: 12/17/2017 Status: F Source: [place] 12:00 AM [facility] REPOSITORY TYPE CODE TESTS RESULT OUT OF RANGE REFERENCE UNITS LAB L100.1000 4.4-11.0 K/mm3 High WBC 11.7 LAB L100.1200 4.6-6.2 M/mm3 Normal RBC 4.61 LAB L100.1300 13.0-16.5 g/dl Normal HGB 14.5 LAB L100.1400 40-54 % Normal HCT 42.7 LAB L100.1500 80-94 fL Normal MCV 92.6 LAB L100.1600 27.0-32.0 pg Normal MCH 31.5 LAB L100.1700 32-36 g/gl Normal MCHC 34.0 LAB L100.1810 11.6-14.6 % High RDW CV 16.0 LAB L100.1820 35.1-43.9 fl High RDW SD 53.4 LAB L100.1900 150-450 K/mm3 Normal PLT 296 LAB L100.2000 6.2-12.0 fl Normal MPV 10.6 LAB L100.2100 47-70 % High NEUT% 80.1 LAB L100.2200 19-41 % Low LY% 12.9 LAB L100.2300 0-10 % Normal MONO% 5.3 LAB L100.2400 0-5 % Normal EO% 1.2 LAB L100.2500 0-1 % Normal BASO% 0.3 LAB L100.2550 0.0-0.9 % Normal IM GRAN % 0.200 Result Comment: IG% - Immature Granulocytes (promyelocytes, myelocytes and metamyelocytes) > 1% indicates that a LEFT SHIFT is Present. LAB L100.2620 2.0-7.7 X10 3/uL High Absolute Neut 9.4 LAB L100.2720 0.83-4.51 X10 3/ul Normal Absolute Lymph 1.51 Performed By: #### L100.0100 #### [facility] [address] [place], [address] BASIC METABOLIC Collected: 12/17/2017 Status: F Source: [place] PROFILE (BMP) 12:00 AM [facility] REPOSIT[facility] TYPE CODE TESTS RESULT OUT OF RANGE REFERENCE UNITS LAB L501.0100 74-106 mg/dL High GLU 154 Result Comment: Fasting Glucose result greater than or equal to 126 mg/dL suggests DIABETES MELLITUS per A.D.A. criteria. Please note revised GLUCOSE reference range effective 2017. LAB L501.1000 7-18 mg/dL Normal BUN 17 LAB L501.1100 0.70-1.30 mg/dL Normal CREAT,SERUM 1.23 Result Comment: The validity of the calculated GFR AND GFRAA in patients over 70 years has not been determined. Clinical correlation is essential. LAB L501.1110 >60 mL/min Normal EST GFR 63 Result Comment: Non- GFR Calc LAB L501.1115 >60 mL/min Normal EST GFR - AA 76 Result Comment: GFR Calc LAB L501.1255 ml/min Normal Estimated CRCL 57.15 LAB L501.1300 10-20 RATIO Normal BUN/CRE 13.8 LAB L501.2200 8.5-10 mg/dL Normal .1 CA 9.9 LAB L501.5300 136-14 mmol/L Normal 5 NA 137 LAB L501.5600 3.5-5. mmol/L Normal 1 K 4.8 Result Comment: Moderate Hemolysis, Result may be falsely increased. LAB L501.5900 98-107 mmol/L Normal CL 104 LAB L501.6100 21.0-32.0 mmol/L Normal CO2 25.0 LAB L501.6200 5-15 Normal 8 GAP Performed By: #### L500.2500, L501.4010 #### [facility] [address] [place], [address] TROPONIN-I Collected: 12/17/2017 Status: F Source: [place] 12:00 AM [facility] TYPE CODE TESTS RESULT OUT OF RANGE REFERENCE UNITS LAB L501.4010 <0.045 ng/mL Normal < 0.015 TROPONIN-I Result Comment: TROPONIN-I EXPECTED VALUES <0.045 Negative 0.045 - 0.590 Consistent with Cardiac Damage > OR = 0.600 Critical Value Not every elevated troponin is indicative of PA. These values should be used with clinical judgement in examining the patient's clinical picture for diagnosis. To establish a diagnosis of PA versus myocardial injury, there must be a demonstrated rise and/or fall in the troponin values, in addition to ischemic symptoms, EKG changes, new regional wall motion abnormality, and/or angiographical evidence. PLEASE NOTE: REFERENCE RANGES EDITED 17 Performed By: #### L500.2500, L501.4010 #### [facility] [address] [place], [address] PROGRESS Observed: 12/10/2017 Status: COMPLETED Source: [place] 11:10 AM [facility] REPOSITORY HNO ID: [id number] Author: Eligio Toth) MITCHELL Banks Service: (none) Author Type: Registered Nurse Type: Progress Notes Filed: 12/10/2017 11:11 AM Note Text: Unable to reach patient at this time, left VM to return call to the office. Eligio Banks RN PROGRESS Observed: 12/06/2017 Status: COMPLETED Source: [place] 10:11 AM [facility] REPOSITORY HNO ID: [id number] Author: Eligio Toth) MITCHELL Banks Service: (none) Author Type: Registered Nurse Type: Progress Notes Filed: 12/06/2017 10:12 AM Note Text: Unable to reach patient at this time, VM box is full. SMS message sent with number to call back. Eligio Banks RN PROGRESS Observed: 12/04/2017 Status: COMPLETED Source: [place] 3:57 PM [facility] REPOSITORY HNO ID: [id number] Author: Eligio Toth) MITCHELL Banks Service: (none) Author Type: Registered Nurse Type: Progress Notes Filed: 12/10/2017 11:11 AM Note Text: TRANSITION CARE MANAGEMENT (TCM) INITIAL CONTACT Provider Action/FYI: Unable to reach patient x2 SUMMARY: -Pt discharged from [facility] on 12/02/17. -Follow up appointment NEEDS. -Medication review NEEDS. -Admitted for: Chest pain and prolapsed stoma CONCERNS: N/A NEW MEDICATIONS: ranolazine ER (RANEXA) 500 mg Take 500 mg by mouth twice daily. ? Qty: 60 tablet Refills: 0 MEDS HELD/DISCONTINUED: None BRIEF HOSPITAL COURSE: Presented for evaluation of?sternal chest pressure, 6/10 with associated shortness of breath and lightheadedness. Had [facility] January 2017 with mild non obstructive CAD, also had negative stress test 07/30/2017. Cardiac enzymes negative, continued ASA, statin, BB and ARB. Initiated Ranexa 500mg BID which appeared to help with the chest discomfort. He was treated with IV lasix for mild systolic heart failure exacerbation, lower extremity edema and shortness of breath resolved, continue home dose of lasix at discharge. Has recurring stoma prolapse, reduced by General Surgery 11/30. He needs to follow up with colorectal surgery outpatient for possible reversal. Advised patient to follow up with PCP in 1 week. Patient was here 2 midnights for treatment qualifying him for inpatient status. ? SIGNATURE: Rosie Torres APRN.PRINTING PRESS OPERATOR APPRENTICE PATIENT NAME: Maxx Knott DATE: December 02, 2017 TIME: 11:38 AM PAGER/CONTACT #: [phone] ? MAIA Pierce, courtroom clerkField Specialist [facility] [phone] [facility] Observed: 12/04/2017 Status: COMPLETED Source: [place] 12:00 AM [facility] REPOSITORY Patient Outreach (INTMMN) MAXX KNOTT ([id number]) 1950 M Date Time Provider Department 12/04/17 ELIGIO BANKS (RN) INTMMN During your visit today, we recorded the following information about you: Eligio Banks RN, RN 12/10/2017 11:11 AM Signed TRANSITION CARE MANAGEMENT (TCM) INITIAL CONTACT Provider Action/FYI: Unable to reach patient x2 SUMMARY: -Pt discharged from [facility] on 12/02/17. -Follow up appointment NEEDS. -Medication review NEEDS. -Admitted for: Chest pain and prolapsed stoma CONCERNS: N/A NEW MEDICATIONS: ranolazine ER (RANEXA) 500 mg Take 500 mg by mouth twice daily. ? Qty: 60 tablet Refills: 0 MEDS HELD/DISCONTINUED: None BRIEF HOSPITAL COURSE: Presented for evaluation of?sternal chest pressure, 10/07 with associated shortness of breath and lightheadedness. Had [facility] January 2017 with mild non obstructive CAD, also had negative stress test 07/30/2017. Cardiac enzymes negative, continued ASA, statin, BB and ARB. Initiated Ranexa 500mg BID which appeared to help with the chest discomfort. He was treated with IV lasix for mild systolic heart failure exacerbation, lower extremity edema and shortness of breath resolved, continue home dose of lasix at discharge. Has recurring stoma prolapse, reduced by General Surgery 11/30. He needs to follow up with colorectal surgery outpatient for possible reversal. Advised patient to follow up with PCP in 1 week. Patient was here 2 midnights for treatment qualifying him for inpatient status. ? SIGNATURE: Rosie Torres APRN.CNP PATIENT NAME: Maxx Knott DATE: December 02, 2017 TIME: 11:38 AM PAGER/CONTACT #: [phone] ? JULIO PierceN, courtroom clerkField Specialist [facility] [phone] Eligio Banks RN, RN 12/06/2017 10:12 AM Signed Unable to reach patient at this time, VM box is full. SMS message sent with number to call back. MITCHELL Pierce RN, RN 12/10/2017 11:11 AM Signed Unable to reach patient at this time, left VM to return call to the office. Eligio Banks RN Allergies As of Date: 12/04/2017 Noted Allergy Reaction ALTASEPTIC 12/17/2016 16 - Unknown BRILINTA (TICAGRELOR) 08/09/2017 16 - Unknown CRESTOR (ROSUVASTATIN CALCIUM) 12/17/2016 17 - Myalgia HCTZ (AMILORIDE-HYDROCHLOROTHIAZI*12/17/2016 7 - Swelling MOXIFLOXACIN 7 - Swelling OTHER OMEGA-3S 07/06/2017 16 - Unknown Comments: brelinta RAMIPRIL 12/17/2016 7 - Swelling Comments: Other reaction(s): Facial swelling SIMVASTATIN 12/17/2016 17 - Myalgia Comments: Other reaction(s): Facial swelling VOLTAREN (DICLOFENAC SODIUM) 12/17/2016 16 - Unknown Date Reviewed: 12/02/2017 Reviewed by: Michell (Rn) MITCHELL Vigil - Fully Assessed Reason for Visit: Field Specialist Hospital Follow Up [1150] Cmt: TCM 1 Prescriptions as of 12/04/2017 Sig: RANOLAZINE ER 500 MG TABLET,E* Take 1 tablet by mouth twice * OXYCODONE-ACETAMINOPHEN 5 MG-* Take 1 tablet by mouth every * ONDANSETRON HCL 4 MG TABLET Take 4 mg by mouth every 6 ho* B COMPLEX ORAL Take 1 tablet by mouth once d* ASPIRIN 81 MG TABLET,DELAYED * Take 81 mg by mouth once dominik* CYCLOBENZAPRINE 10 MG TABLET Take 1 tablet by mouth at bed* AMLODIPINE 10 MG TABLET Take 10 mg by mouth once dominik* LORATADINE 10 MG CAPSULE Take 1 capsule every day by o* PRAVASTATIN 40 MG TABLET Take 40 mg by mouth daily at * GABAPENTIN 300 MG CAPSULE Take 2 capsules by mouth dominik* METOPROLOL SUCCINATE ER 100 M* Take 1 tablet by mouth once d* QUETIAPINE 200 MG TABLET Take 2 tablets by mouth daily* COMPOUNDED PRESCRIPTION One Piece Ostomy Pouch Item T* COMPOUNDED PRESCRIPTION Paste: Convatec Stomahesive * MULTIVITAMIN AND MINERALS ORAL Take 1 capsule by mouth once * ALBUTEROL SULFATE HFA 90 MCG/* Inhale 2 Puffs as instructed * FLUTICASONE 50 MCG/ACTUATION * Use 1 [place] in the nose once * NITROGLYCERIN 0.4 MG SUBLINGU* PLACE ONE(1) TABLET UNDER TON* LOSARTAN 100 MG TABLET Take 100 mg by mouth once roddy* FUROSEMIDE 20 MG TABLET Take 40 mg by mouth once dominik* Problem List As Of Date 12/04/2017 Noted Resolved 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 Chest pain [R07.9] INVALID FOR*12/02/2017 Priority: A More... Hypertensive crisis [I16.9] INVALID FOR* Priority: B More... Healthcare maintenance [Z00.00] INVALID FOR* Priority: M More... Malnutrition of mild degree (HCC) [E44.1] INVALID FOR* Priority: L More... CHF exacerbation (HCC) [I50.9] INVALID FOR*12/02/2017 Diverticulitis of sigmoid colon [K57.32] INVALID FOR* Class: Recurrent More... Chronic systolic congestive heart failure (HCC)*INVALID FOR* Priority: J More... CAD (coronary artery disease) [I25.10] INVALID FOR* Priority: K More... Hypertensive heart disease with congestive hear*INVALID FOR* Priority: K Hypocalcemia [E83.51] INVALID FOR*06/19/2017 Hypernatremia [E87.0] INVALID FOR*06/19/2017 Hypokalemia [E87.6] INVALID FOR*06/19/2017 Parastomal hernia without obstruction or gangre*INVALID FOR* Abdominal aortic aneurysm without rupture (HCC)*INVALID FOR* Renal cysts, acquired, bilateral [N28.1] INVALID FOR* Arthritis [M19.90] INVALID FOR* Anxiety disorder [F41.9] INVALID FOR* Essential hypertension [I10] INVALID FOR* Nicotine use disorder, F17.2 [F17.200] INVALID FOR* Melena [K92.1] INVALID FOR* Fall [W19.XXXA] INVALID FOR* Abdominal pain [R10.9] INVALID FOR* Peristomal hernia [K46.9] INVALID FOR* Prolapse of intestine [K63.4] INVALID FOR*12/02/2017 Chronic narcotic use [F11.90] INVALID FOR* Chest pain [R07.9] INVALID FOR*12/02/2017 Encounter Status:Closed by ELIGIO BANKS on 12/10/17 CASE MANAGEM Observed: 12/02/2017 Status: COMPLETED Source: [place] 1:44 PM CLINIC OTHER CAMPUS REPOSITORY HNO ID: [id number] Author: Connie Toth) MITCHELL Ordaz Service: Care Management Author Type: Registered Nurse Type: Care Mgt Progress Note Filed: 12/02/2017 1:47 PM Note Text: CARE MANAGEMENT DISCHARGE NOTE SERVICE DATE: 12/02/2017 SERVICE TIME: 1:44 PM LOS: 0 days Admission Date: 11/30/2017 DISCHARGE ARRANGEMENT (list agency and phone number) Home Care - Nursing, PT and OT Provider: [facility] CAREGIVER ASSESSMENT: Caregiver is ready, willing and able to meet the patient's needs as recommended by the inter-professional team? No Caregiver Needed Patient's transition needs and plan for meeting these needs: discharge home with new [facility], follow up as scheduled Does the patient have an acute stroke diagnosis, or has the patient had a stroke during this admission? No HANDOFF COMMUNICATION: Primary Care Physician: Dr Kavitha Ordonez TRANSPORTATION ARRANGEMENTS: Car brother to transort ADDITIONAL CONTACT RESOURCES: Discharge Information Row Name Admission (Current) from 11/30/2017 in [facility] Observation Home Health Care Agency [facility] Start of Care ? 24-48 hours after discharge. Pt agreeable to discharge home today with new [facility]. [place] will see pt with SOC within 48 hours. Pt's brother will transport. Summary of care sent to Dr Ordonez. [employer] ([employer]) message sent to [facility] Eligio Banks RN. SIGNATURE: Connie Ordaz RN PATIENT NAME: Maxx Knott DATE: December 02, 2017 TIME: 1:44 PM PAGER/CONTACT #: [phone] CASE MGT INIT Observed: 12/02/2017 Status: COMPLETED Source: [place] 1:37 PM CLINIC OTHER CAMPUS REPOSITORY HNO ID: [id number] Author: Connie (Rn) MITCHELL Ordaz Service: Care Management Author Type: Registered Nurse Type: Care Mgt Initial Assessment Filed: 12/02/2017 1:43 PM Note Text: CARE MANAGEMENT: ASSESSMENT AND DISCHARGE PLAN SERVICE DATE: 12/02/2017 SERVICE TIME: 1:38 PM PRIMARY CARE PHYSICIAN: Bijan Perez MD (confirmed) ADMISSION STATUS: Inpatient Needs Prior to Discharge: Ready for Discharge MEDICAL: Patient/Home Comfort Advisor Stated Goals: To improve my functional status Health Insurance: MEDICARE A AND B . Health Issues Impacting Discharge Plan: Chest pressure, Ostomy, CHF Last Admission Date: Previous admit date: 09/23/2017 Is this Within the Past 30 days? No Advance Directive: Health Literacy: 1. How often do you need to have someone help you when you read instructions, pamphlets, or other written material from your doctor or pharmacy? Rarely - 2 2. How confident are you filling out medical forms by yourself? Quite a bit - 2 If Patient scores > 3 on either question, the following interventions were put into place: Teach back methods employed to ensure comprehension and Use concrete and specific phrases, avoid medical jargon FUNCTIONAL AND COGNITIVE/BEHAVIORAL PRIOR TO ADMISSION: Baseline Mental Status: Alert AND Oriented, Person, Place , Time and Situation Functional Status: Independent Does Patient Currently Receive Any Community Services or Home Care? None Equipment Prior to Admission: None Has the Patient Been in a Half-Way Facility in the Past 30 days? N/A SOCIAL: Living Arrangement: Home Lives With: Brother Financial Resources: Retired Primary Contact: Extended Emergency Contact Information Primary Emergency Contact: Mary Knott Address: [address] [place] [address] Mobile Relation: Brother Supportive: Yes Other Important Patient Contacts: None Caregiver Assessment: Caregiver is ready, willing and able to meet the patient's needs as recommended by the inter-professional team? No Caregiver Needed Patient's transition needs and plan for meeting these needs: discharge home [facility] Does the patient have an acute stroke diagnosis, or has the patient had a stroke during this admission? No Medication Adherence: I am convinced of the importance of my prescription medication: Agree mostly - 0 I worry that my prescription medication will do more harm than good to me Disagree mostly - 0 I feel financially burdened by my [id number] expenses for my prescription medication: Agree mostly - 2 Patient is categorized as low risk < 2 Are you interested in bedside delivery of your medications? No Food Concerns: In the Last Month, Have You had Trouble Getting Food? No trouble getting food During the Last Month, Have You Worried Whether Your Food Would Run Out Before You Had Enough Money to Buy More? No Is the Patient Psychosocially Complex? No ASSESSMENT AND PLAN: Medical Needs: 2 or more chronic diseases Psychosocial Needs: None FREEDOM OF CHOICE EXPLAINED: Yes discussed with Maxx Knott Preference: [facility] POTENTIAL TRANSITION PLANS Home Nursing Home OT/PT CM met with pt at bedside. Pt states he lives in an apartment with his brother, states he is independent with all needs. Pt is agreeable to [facility] at discharge. Pt states his brother will transport at d/c. TCC to remain available for continued discharge planning. SIGNATURE: Connie Ordaz RN PATIENT NAME: Maxx Knott DATE: December 02, 2017 TIME: 1:37 PM PAGER/CONTACT #: [phone] NURSING PROG Observed: 12/02/2017 Status: COMPLETED Source: [place] 12:12 PM [facility] OTHER [place] REPOSITORY HNO ID: [id number] Author: Michell KingRn) MITCHELL Vigil Service: (none) Author Type: Registered Nurse Type: Nursing Progress Note Filed: 12/02/2017 3:23 PM Note Text: Nursing Progress Note Patient Name: Maxx Knott Patient Location: [place] [id number] Daily Note: 1130 Patient resting in bed, assessment complete, see NPR. c/o pain, abd binder in place, IV patent. 1310 Patient sleeping in bed, no signs of distress. 1522 Discharge instructions given, prescription given, IV removed no issues. eduction provided. Patient off unit stable condition. This note was completed by: Michell Vigil RN CNDS Observed: 12/02/2017 Status: COMPLETED Source: [place] 11:37 AM [facility] OTHER CAMPUS REPOSITORY HNO ID: [id number] Author: Josie Covington Service: Hospital Medicine Author Type: Physician Type: Discharge Summaries Filed: 12/02/2017 9:52 PM Note Text: DISCHARGE SUMMARY PATIENT NAME: Maxx Knott ADMISSION DATE: 11/30/2017 DISCHARGE DATE: 12/02/2017 ATTENDING PHYSICIAN: Manish Ott I reviewed and made changes on the discharge summary obtained and documented by the STRIP MACHINE OPERATOR Josie Covington MD REASON FOR HOSPITALIZATION: Chest pain and prolapsed stoma DIAGNOSIS: Active Problems: Nicotine use disorder, F17.2 Chronic narcotic use Resolved Problems: Colostomy prolapse (HCC) Chest pain CHF exacerbation (HCC) Prolapse of intestine HOSPITAL COURSE: Presented for evaluation of sternal chest pressure, 10/07 with associated shortness of breath and lightheadedness. Had [facility] January 2017 with mild non obstructive CAD, also had negative stress test 07/30/2017. Cardiac enzymes negative, continued ASA, statin, BB and ARB. Initiated Ranexa 500mg BID which appeared to help with the chest discomfort. He was treated with IV lasix for mild systolic heart failure exacerbation, lower extremity edema and shortness of breath resolved, continue home dose of lasix at discharge. Has recurring stoma prolapse, reduced by General Surgery 11/30. He needs to follow up with colorectal surgery outpatient for possible reversal. Advised patient to follow up with PCP in 1 week. Patient was here 2 midnights for treatment qualifying him for inpatient status. OPERATIONS DURING HOSPITALIZATION: None PROCEDURES DURING HOSPITALIZATION: No procedures performed LABS AND PROCEDURES PENDING AT DISCHARGE: No pending results. CONSULTING TEAMS DURING HOSPITALIZATION: None PATIENT CONDITION AT DISCHARGE: Stable DISCHARGE DISPOSITION: Home with Home Health Care Discharge Physical Exam: VITAL SIGNS: BP 122/56 Pulse 61 Temp 36.4 ?C (97.5 ?F) (Oral) Resp 17 Ht 172.7 cm (5' 8) Wt 92.2 kg (203 lb 4.2 oz) SpO2 90% BMI 30.91 kg/m? GENERAL: Alert, no distress, cooperative SKIN: Skin color, texture, turgor normal. No rashes or lesions. HEAD/SINUSES: No significant findings. AT/NC EYES: PERRLA, EOMI OROPHARYNX: Lips, mucosa, and tongue normal. Teeth and gums normal. Oropharynx normal. LUNGS: Lungs clear to auscultation, no adventitious breath sounds, no acute respiratory distress CARDIAC: Normal S1 and S2; RRR no rubs, murmurs, or gallops ABDOMEN: Right colostomy, stoma appears well perfused. Stool is without blood. Mild tenderness surrounding stoma EXTREMITIES: No edema or ulcerations, brisk cap refill NEURO: Grossly normal cognition, motor function, and cranial nerves III-XII PULSES: 2+ radial, 2+ dorsalis pedis ? DISCHARGE MEDICATION: Current Discharge Medication List START taking these medications ranolazine ER (RANEXA) 500 mg Take 500 mg by mouth twice daily. Qty: 60 tablet Refills: 0 CONTINUE these medications which have NOT CHANGED ondansetron (ZOFRAN) 4 mg Take 4 mg by mouth every 6 hours as needed. oxyCODONE-acetaminophen (PERCOCET 10) 1 tablet Take 1 tablet by mouth every 6 hours as needed for Pain. Has had both 5 and 10 mg strength prescribed over past year, says he currently has 10 mg strength at home vitamin B complex (B COMPLEX ORAL) 1 tablet Take 1 tablet by mouth once daily. aspirin, enteric coated (ASPIRIN, ENTERIC COATED) 81 mg Take 81 mg by mouth once daily. cyclobenzaprine (FLEXERIL) 10 mg Take 10 mg by mouth at bedtime as needed for Muscle Spasm. Associated Diagnoses:Chronic low back pain, unspecified back pain laterality, with sciatica presence unspecified amLODIPine (NORVASC) 10 mg Take 10 mg by mouth once daily. loratadine 10 mg cap Take 1 capsule every day by oral route as needed pravastatin (PRAVACHOL) 40 mg Take 40 mg by mouth daily at bedtime. gabapentin (NEURONTIN) 600 mg Take 600 mg by mouth daily at bedtime. Qty: 90 capsule Refills: 0 Associated Diagnoses:Chronic low back pain, unspecified back pain laterality, with sciatica presence unspecified metoprolol succinate ER (TOPROL XL) 100 mg Take 100 mg by mouth once daily. Qty: 90 tablet Refills: 4 QUEtiapine (SEROquel) 400 mg Take 400 mg by mouth daily at bedtime. Qty: 60 tablet Refills: 0 MULTIVIT WITH IRON,MINERALS (MULTIVITAMIN AND MINERALS ORAL) 1 capsule Take 1 capsule by mouth once daily. albuterol HFA (PROVENTIL HFA, VENTOLIN HFA) 2 Puffs Inhale 2 Puffs as instructed every 4 hours as needed for Wheezing/Shortness of Breath. fluticasone (FLONASE) 1 [place] Use 1 [place] in the nose once daily as needed. losartan (COZAAR) 100 mg Take 100 mg by mouth once daily. furosemide (LASIX) 40 mg Take 40 mg by mouth once daily as needed. !! COMPOUNDED PRESCRIPTION One Piece Ostomy Pouch Item Type: Coloplast Sensura One Piece Non-Sterile with Window 07/05-05/01'' ?5/Box ICD 10: Prolapsed Stoma K94.09 Qty: 1 Box Refills: 0 !! COMPOUNDED PRESCRIPTION Paste: Convatec Stomahesive 1 tube ICD 10: Prolapsed Stoma K 94.09 Qty: 1 Tube Refills: 0 nitroglycerin sublingual (NITROSTAT) 0.[address] ONE(1) TABLET UNDER TONGUE NEEDED FOR CHEST PAIN. IF NO PAIN RELIEF CALL 911 Qty: 25 tablet Refills: 0 !! - Potential duplicate medications found. Please discuss with provider. FUTURE APPOINTMENTS: Follow Up with PCP: Bijan Perez MD TIME OF CARE Discharge Management: I personally spent 35 minutes involved in the discharge management of this patient. SIGNATURE: Rosie Torres APRN.CNP PATIENT NAME: Maxx Kntot DATE: December 02, 2017 TIME: 11:38 AM PAGER/CONTACT #: [phone] THERAPY NT Observed: 12/02/2017 Status: COMPLETED Source: [place] 10:17 AM CLINIC OTHER CAMPUS REPOSITORY O ID: [id number] Author: Vandana Rodriguez Service: Physical Therapy Author Type: Physical Therapist Type: Therapy (PT/OT/Speech/Resp) Filed: 12/02/2017 11:23 AM Note Text: Attestation signed by Rosie Torres at 12/02/2017 1:04 PM Rosie Torres APRN.CNP December 02, 2017 1:04 PM Physical Therapy Evaluation SERVICE DATE: 12/02/2017 SERVICE TIME: 1017 to 1044 ROOM: [place] [address] Recommended Discharge Disposition: Home PT - currently patient declining home PT services as he doesn't feel that he needs them Recommended Discharge Disposition Comments: Patient may benefit from home PT for home safety assessment and to increase strength/safety/tolerance with functional progression Recommended Discharge Equipment: No equipment needs anticipated PT Recommendations to Nursing: Ambulate with device;To bathroom;In halls;Transfer to/from chair;OOB for Meals;With assist of 1 person Device: Wheeled Walker (gait belt) PT 6 Clicks Score: 20 Precautions/Activity Restrictions: Abdominal;Fall Risk Precaution/Activity Restriction Comments: colostomy ASSESSMENT : Patient presents with general weakness and fatigue with abdominal pain. Patient demonstrates mobility with SBA/CGA and is safe and steady however requires rest breaks in standing. Patient reports limited activity tolerance and only amb short distances at baseline. Patient pleasant and demonstrates good follow through with cues/education. Requires skilled PT for increase strength/safety/tolerance within safe limits. Patient Disposition at Start of Session: Supine in Bed;Call Alvarez in Reach Patient Disposition at End of Session: Supine in Bed;Call Alvarez in Reach Tolerated Full Session Physical Therapy Problem List: Pain;Safety Deficits;Impaired Self Care;Decreased Activity Tolerance;Decreased Range Of Motion;Decreased Strength;Functional Mobility Impairment;Balance Impaired Patient /Caregiver Goals: Go Home Goals for Plan of Care: Able to perform HEP with: Modified Independent (w handout for LE strengthening/ROM/balance x 10 - 20 reps) Transfer supine to/from sit with: Independent (to safely transfer to EOB without bed adjustments) Transfer sit to/from stand with: Stand By Assistance Ambulate with: Stand By Assistance Distance: 150 - 200 feet to safely navigate in home environment Device: Wheeled Walker (or LRAD) Goal: Patient demonstrates good balance with functional progression to decrease risk of falls Progress Toward Goals: Progressing as expected Rehab Potential: Good PLAN: Treatment Frequency (times per week): 3 Current admission Treatment Interventions: Education;Self Care / Home Management;Energy Conservation Training;Joint Mobility;Strengthening;Functional Mobility Training;Balance Training;Neuromuscular Re-education Plan of Care developed with: Patient TREATMENT INTERVENTIONS: Therapy Diagnosis: Reduced mobility-other Interventions Provided: Evaluation;Therapeutic Activity (35020);Gait Training (59905) $ Evaluation-Low (05526) Billed Units: 1 unit Therapeutic Activity (78911) Treatment Minutes: 8 1 unit Skilled Intervention(s): Instructed patient in sit to supine using safe, effective technique Instructed patient in supine to and from sit pushing with upper extremities to sit up Instruction in stand to sit technique with lower extremities touching chair/bed and reaching back for surface Instruction in sit to and from stand technique with proper hand placement and body positioning at edge of bed/chair Education of benefit of mobility to prevent decline and work towards functional/home going goals. Education in use of call light to get up 100% of the time Education in discharge recommendation and rationale - home PT and rationale Gait Training (81731) Treatment Minutes: 5 0 units Skilled Intervention(s): Instruction in sequencing, gait pattern, Instruction in correction of gait deviations, Instruction in use of equipment, cues for sequence and pattern and cues for posture intermittently Monitoring tolerance Education regarding recommendation for FWW for improved stability, decreased pain and improved activity tolerance Education for adjusting walker height appropriately and rationale Cues to amb inside device Cues for walker negotiation/sequencing with change of direction/negotiation around room obstacles and safe approach of sitting surface. Total Timed Code Treatment Minutes: 13 Total Treatment Time (minutes): 27 FUNCTIONAL G CODE: PT 6 Clicks Score: 20 (12/02/17 1017) $ Mobility: Walking and Moving Around Current Status (G8978): CJ (12/02/17 1017) $ Mobility: Walking and Moving Around Goal Status (G8979): CI (12/02/17 1017) Based on clinical assessment and the score on the 6 Clicks Functional Assessment Tool, the G code and corresponding severity modifiers are documented above. Physician signature certifies treatment plan of care established above for the period of 12/02/2017 through 12/16/2017. SUBJECTIVE: Current Hospital Course: Chart reviewed; Patient is a 67 year old male Reason for Physical Therapy Consult : Patient admitted observation 11/30/17 with abdominal pain/intestinal prolapse and SOB. Patient referred to PT for safety assessment Relevant Past Medical History: AAA,CAD,COPD,diverticulitis,CABG,peritonitis Patient Report: Patient agreeable to PT and cleared for mobility by nursing. Patient states that he feels weak with mobility compared to baseline. Patient states that he has a FWW and feels that he needs it and plans on using FWW for several days with home going. Home Environment Patient Lives With: Family (brother) Assistance Available: 24 Hour (nearly) Entry To Home: No Stairs;Elevator Number Of Stairs To Bed/Bath: 0 (first floor set up) Tub/Shower Type: tub/shower with shower chair with grab bars and hand held shower sprayer Laundry: on same floor Equipment Owned: Cane;Grab Bars-Shower;Hand Held Shower;Wheeled Walker;Shower Chair Prior Functional Level: Within Functional Limits;History of Falls (I amb/ADL/IADL w/o device,+drives,2 falls this year tripping) OBJECTIVE: Range Of Motion: Within Functional Limits Except Right Lower Extremity ROM Comments: AROM in sitting: knee extension - 5 degrees and DF 5 degrees, hip flexion 100 degrees Left Lower Extremity ROM Comments: AROM in sitting: knee extension - 5 degrees and DF 5 degrees, hip flexion 100 degrees Strength: Within Functional Limits Except Right Lower Extremity Strength Comments: hip flexion 4- to 4/5, knee flexion/extension 4/5, DF 4+/5 Left Lower Extremity Strength Comments: hip flexion 3+ to 4-/5, knee flexion/extension 4-/5, DF 4/5 CURRENT FUNCTIONAL STATUS: Current Functional Mobility Assist Level Additional Information Rolling Supine to Sit Stand By Assistance (HOB 15 degrees, no rail use.declines flat bed position) Sit to Supine Stand By Assistance (HOB 20 degrees, no rail use) Scooting Stand By Assistance (in sitting, fwd/retro at EOB) Sit to Stand Stand By Assistance (from lowered EOB without device) Stand to Sit Stand By Assistance (to lowered EOB with FWW) Bed to Chair Toilet/Commode Gait Contact Guard Assistance (with quick progression to SBA) Gait Device: Wheeled Walker (initially none x 15 feet and then requests FWW) Gait Distance (feet): 75 x 1 and 65 x 2 with standing rest breaks between each Stairs Curb Step Car Transfer General Gait Deviations: Grecia decreased;Step length decreased;Flexed trunk posture;Other: See comment (min knee flexion) *Gait belt donned prior to OOB activity and ambulation Balance: Static Sitting;Dynamic Sitting;Static Standing;Dynamic Standing Static Sitting Balance: Independent Dynamic Sitting Balance: Supervision Static Standing Balance: Stand By Assistance Dynamic Standing Balance: Contact Guard Assistance (to SBA) Please see discipline specific clinical documentation flowsheet for complete details for this therapy evaluation/treatment. SIGNATURE: Vandana Rodriguez PT PATIENT NAME: Maxx Knott DATE: December 02, 2017 TIME: 11:17 AM NURSING PROG Observed: 12/02/2017 Status: COMPLETED Source: [place] 7:23 AM [facility] REPOSITORY HNO ID: [id number] Author: Niki (Rn) MITCHELL Brock Service: Nursing Author Type: Registered Nurse Type: Nursing Progress Note Filed: 12/02/2017 10:11 AM Note Text: Nursing Progress Note Patient Name: Maxx Knott Patient Location: [place] [id number] Daily Note: pt observed asleep in bed. Respers even and unlabored. Will continue to monitor. This note was completed by: Niki rBock, RN 0853- pt awake, c/o pain at stoma site, prn administered for pain. See physical assessment. Stoma beefy red, moist. Pt states he does his own stoma care. Will continue to monitor. 1008- pt denies assistance to clean up this AM. Will continue to monitor. CBC Collected: 12/02/2017 Status: F Source: [place] 3:14 AM [facility] REPOSITORY TYPE CODE TESTS RESULT OUT OF REFERENCE UNITS RANGE LAB WBC 3.70-11.00 k/uL WBC 7.41 LAB RBC 4.20-6.00 m/uL RBC 4.33 LAB HGB 13.0-17.0 g/dL Low Hemoglobin 12.8 LAB HCT 39.0-51.0 % Hematocrit 41.0 LAB MCV 80.0-100.0 fL MCV 94.7 LAB MCH 26.0-34.0 pG MCH 29.6 LAB MCHC 30.5-36.0 g/dL MCHC 31.2 LAB RDWCV 11.5-15.0 % RDW-CV High 17.0 LAB PLTCT 150-400 k/uL Platelet Count 224 LAB MPV 9.0-12.7 fL MPV 11.1 Performed By: #### CBC, BMP #### [facility] [address] [facility] [phone] BASIC METABOLIC PANL Collected: 12/02/2017 Status: F Source: [place] 3:14 AM CLINIC OTHER CAMPUS REPOSITORY TYPE CODE TESTS RESULT OUT OF REFERENCE UNITS RANGE LAB GLU 74-99 mg/dL High Glucose 100 Result Comment: The [place] Diabetes Association (ADA) provides guidance for cutoff values for fasting glucose and random glucose. The ADA defines fasting as no caloric intake for at least 8 hours. Fas ting plasma glucose results between 100 to 125 mg/dL indicate increased risk for diabetes (prediabetes). Fasting plasma glucose results greater than or equal to 126 mg/dL meet the criteria for diagnosis of diabetes. In the absence of unequivocal hyperglycemia, results should be confirmed by repeat testing. In a patient with classic symptoms of hyperglycemia or hyperglycemic crisis, random plasma glucose results greater than or equal to 200 mg/dL meet the criteria for diagnosis of diabetes. Reference: Standards of Medical Care in Diabetes 2016, [place] Diabetes Association. Diabetes Care. 2016.39(Suppl 1). LAB BUN 9-24 mg/dL BUN High 26 LAB CRET 0.73-1.22 mg/dL Creatinine High 1.25 LAB NA 136-144 mmol/L Sodium 143 LAB K 3.7-5.1 mmol/L Potassium 4.4 LAB CL 97-105 mmol/L Chloride 101 LAB CO2 22-30 mmol/L CO2 High 31 LAB AGAP 9-18 mmol/L Anion Gap 11 LAB CA 8.5-10.2 mg/dL Calcium, Total 8.9 LAB GFRAA eGFR- Amer. >60 LAB GFRNAA . eGFR-All Other Races 58 Result Comment: eGFR (Estimated GFR) Units of measure: mL/min/1.73 meters squared eGFR is derived from the reexpressed MDRD Study equation using the following parameters: serum creatinine, age, gender and race. The creatinine assay has been calibrated to be traceable to IDMS. An eGFR <60 mL/min/1.73m2 for >3 months is consistent with chronic kidney disease. Refer to KDOQI guidelines for clinical interpretation. In patients with unstable renal function, e.g. those with acute kidney injury, the eGFR may not accurately reflect actual GFR. Performed By: #### CBC, BMP #### [facility] [address] [facility] [phone] CNCO Observed: 12/02/2017 Status: COMPLETED Source: [place] 12:00 AM [facility] OTHER [place] REPOSITORY Letter Text December 02, 2017 Maxx Knott [address] [facility] [address] Dear Mr. Knott, The nurses and staff of [facility] hope this letter finds you feeling well and progressing in your recovery. Our staff would like to thank you for trusting and choosing us for your health care needs. It was an honor for us to provide your nursing care. We know that placing our Patients First and maintaining a culture of continuous improvement each and every day, are essential to the success of our organization. I hope your stay with us has been positive. We want to hear from you. If you have any comments, questions or concerns about your hospital stay, please feel free to contact me, Raissa Márquez RN ([phone]) or email me at, [email or web address] Additionally, you will receive a survey in the mail asking you to rate the care you received while in the hospital. Please take the time to complete and send back the survey, as it is essential to our continued success. I personally review all the results and would appreciate your feedback. Thank you in advance for your participation and thank you for choosing the [facility] for your health needs. Sincerely, Nurse Director Of Mechanical Engineering: Raissa Márquez RN ([phone]) [facility] Unit: 3 Observation NURSING PROG Observed: 12/01/2017 Status: COMPLETED Source: [place] 9:23 PM [facility] OTHER [place] REPOSITORY HNO ID: [id number] Author: Bree (Rn) MITCHELL Johnson Service: (none) Author Type: Registered Nurse Type: Nursing Progress Note Filed: 12/02/2017 5:27 AM Note Text: Nursing Progress Note Patient Name: Maxx Knott Patient Location[place] [facility] [place]/[id number] Daily Note: 1930: Assumed care of patient at this time. Patient resting in bed in stable condition. Denies SOB. Complains of 6/10 abdominal pain, previously medicated per eMAR. Stoma is beefy red, moist, and peristomal skin is intact. Abdomen is tender. Nonpitting edema noted to BLE. Lung sounds are clear but diminished bilaterally. Patient wears cpap while sleeping. Will continue to monitor. 2100: Patient awake in bed in stable condition. No change in assessment to abdomen. No complaints of pain. Will continue to monitor. 2300: Patient observed asleep in bed in stable condition. No signs of pain or distress. CPAP applied. Will continue to monitor. 0100: Patient observed asleep in bed in stable condition. No signs of pain or distress. CPAP applied. Will continue to monitor. 0300: Patient observed asleep in bed in stable condition. No signs of pain or distress. CPAP applied. Will continue to monitor. 0315: Medicated for pain per eMAR 0500: Patient observed asleep in bed in stable condition. No signs of pain or distress. CPAP applied. Will continue to monitor. This note was completed by: Bree Johnson RN THERAPY NT Observed: 12/01/2017 Status: COMPLETED Source: [place] 4:35 PM CLINIC OTHER CAMPUS REPOSITORY HNO ID: [id number] Author: Vandana Rodriguez Service: Physical Therapy Author Type: Physical Therapist Type: Therapy (PT/OT/Speech/Resp) Filed: 12/01/2017 4:51 PM Note Text: PHYSICAL THERAPY MISSED VISIT SERVICE DATE: 12/01/2017 SERVICE TIME: 1635 to 1635 ROOM: [place] [address] Attempted Evaluation. Patient not seen due to Eating. Patient eating meal at approach. Patient and nursing notes patient has been getting up to bathroom without assist. Patient states that he is doing well however not feeling quite normal. Patient notes that he lives with his brother in apartment with 2-3 steps entry. Discussed with patient that therapy would return tomorrow am for PT eval as needed. SIGNATURE: Vandana Rodriguez PT PATIENT NAME: Maxx Knott DATE: December 01, 2017 TIME: 4:38 PM NURSING PROG Observed: 12/01/2017 Status: COMPLETED Source: [place] 3:58 PM [facility] REPOSITORY HNO ID: [id number] Author: Michell (Rn) MITCHELL Vigil Service: (none) Author Type: Registered Nurse Type: Nursing Progress Note Filed: 12/01/2017 5:30 PM Note Text: Nursing Progress Note Patient Name: Maxx Knott Patient Location: [place] [address]/[id number] Daily Note: 1515 RN assumed care of patient, patient resting in bed, denies pain, CPaP because he was napping, assessment complete, see NPR. Edema noted to bilat lower legs. 1700 Patient sleeping in bed, no signs of distress. This note was completed by: Michell Vigil RN PROGRESS Observed: 12/01/2017 Status: COMPLETED Source: [place] 1:24 PM [facility] REPOSITORY HNO ID: [id number] Author: Rosie Torres Service: Hospital Medicine Author Type: Nurse Practitioner Type: Progress Notes Filed: 12/01/2017 1:39 PM Note Text: DEPARTMENT OF HOSPITAL MEDICINE PROGRESS NOTE SERVICE DATE: 12/01/2017 SERVICE TIME: 1:24pm Primary Care Physician: Bijan Perez MD NIGHT AND WEEKEND COVERAGE: Nights: Please contact pager [phone]. Subjective INTERVAL HPI: Less short of breath today Lower extremity swelling improved Complains of generalized weakness Still has mild intermittent chest discomfort MEDICATIONS: Reviewed ALLERGIES Allergen Reactions - Altaseptic Unknown - Brilinta [Ticagrelo* Unknown - Crestor [Rosuvastat* Myalgia - Hctz [Amiloride-Hyd* Swelling - Moxifloxacin Swelling - Other [place]-3s Unknown brelinta - Ramipril Swelling Other reaction(s): Facial swelling - Simvastatin Myalgia Other reaction(s): Facial swelling - Voltaren [Diclofena* Unknown Objective PHYSICAL EXAM: BP 115/56 Pulse 63 Temp (Src) 97.9 (Axillary) Resp 17 Ht 5' 8 (1.73m) Wt 196 lb 11.8 oz (89.2kg) SpO2 94% BMI 29.92 kg/(m2). GENERAL: Alert, no distress, cooperative SKIN: Skin color, texture, turgor normal. No rashes or lesions. HEAD/SINUSES: No significant findings. AT/NC EYES: PERRLA, EOMI OROPHARYNX: Lips, mucosa, and tongue normal. Teeth and gums normal. Oropharynx normal. LUNGS: Lungs clear to auscultation, no adventitious breath sounds, no acute respiratory distress CARDIAC: Normal S1 and S2; RRR no rubs, murmurs, or gallops ABDOMEN: Right colostomy, stoma appears well perfused. Stool is without blood. Mild tenderness surrounding stoma EXTREMITIES: Non pitting edema to BLE, no ulcerations, brisk cap refill NEURO: Grossly normal cognition, motor function, and cranial nerves III-XII PULSES: 2+ radial, 2+ dorsalis pedis Lines, Drains, and Airways Line Peripheral 11/30/17 1216 Admission to Hospital Short Left Forearm 20 Gauge 1 day Reviewed lines, drains, AND airways. Need to be continued for medical treatment DATA: Diagnostic tests reviewed for today's visit: Most recent labs and imaging results. Recent Labs 12/01/17 0309 11/30/17 0900 11/30/17 0858 WBC 7.73 8.21 -- HB 12.6* 13.5 -- PLT 220 245 -- NA 143 141 -- K 3.8 3.8 -- CO2 32* 26 -- BUN 18 11 -- CREAT 1.12 0.98 -- AST -- 16 -- ALT -- 22 -- TBILI -- 0.3 -- ALKPHOS -- 83 -- LACT -- -- 1.7 XR abdomen 11/30/2017 IMPRESSION: No radiographic evidence of an acute abdominal process. Assessment/Plan Active Problems: Chest pain Presented with sternal chest pressure, 6/10 with associated shortness of breath and lightheadedness Had [facility] January 2017 with mild non obstructive CAD Had negative stress test 07/30/2017 Cardiac enzymes negative Monitor on telemetry Check EKG in am Continue ASA, statin, BB and ARB Initiate Ranexa 500mg BID to see if this will help with his chest discomfort Acute on chronic systolic heart failure Lower extremity swelling and shortness of breath on presentation NT Pro BNP 1426 40mg IV lasix BID with potassium supplementation Monitor renal function and ltyes closely Strict I/O, daily weight, low salt diet ECHO 04/02/2017 mild LV hypertrophy with mildly decreased LV systolic dysfunction EF 50% Unable to obtain repeat ECHO over the weekend due to service unavailable at this facility Fluid restriction Sigmoid diverticulitis with perforation s/p right colostomy 07/2016 Recurrent stoma prolapse Has recurring stoma prolapse with multiple hospitalizations and ER visits Stoma reduced by General Surgery 11/30 Patient needs to follow up with colorectal surgery outpatient for possible reversal YUSUF Utilizes cpap at home Continue Cpap qHS with home settings DDD PRN flexeril and percocet Nicotine abuse Counseled on smoking cessation Nicotine patch while in house History of severe depression with suicide attempts Currently appears stable, no SI Continue Seroquel 400mg Medication and Non-Pharmacologic VTE Prophylaxis/Anticoagulants: IPC Anticoagulant AND Antiplatelet Medications Start Dose Route Frequency Ordered Stop 11/30/17 1500 aspirin, enteric coated 81 mg tab(s) (ASPIRIN, ENTERIC COATED) 81 mg ORAL DAILY 11/30/17 1446 -- VTE Prophylaxis: VTE prophylaxis appropriate Disposition: Home in the next 24 hours Plan of care discussed with: Patient, CM and RN SIGNATURE: Rosie Torres APRN.CNP PATIENT NAME: Maxx Knott DATE: December 01, 2017 TIME: 1:38 PM PAGER/CONTACT #: [phone] EKG Observed: 12/01/2017 Status: F Source: [place] 8:23 AM CLINIC OTHER CAMPUS REPOSITORY NAME : MAXX KNOTT PID : [id number] : 1950 Gender : Male Race : ORD : [id number] Procedure Date : Dec 01 2017 08:23:24 Edit Date : Dec 03 2017 10:36:06 Diagnosis:AV dual-paced rhythm with prolonged AV conduction WITH FREQUENT PREMATURE VENTRICULAR COMPLEXES ABNORMAL ECG WHEN COMPARED WITH ECG OF 01-DEC-2017 02:26, NO SIGNIFICANT CHANGE WAS FOUND Confirmed by Shae DELUNA ([id number]) on 12/03/2017 10:36:02 AM Ventricular Rate : 68 BPM Atrial Rate : 68 BPM P-R Interval : 232 ms QRS Duration : 130 ms Q-T Interval : 478 ms QTC Calculation(Bezet) : 508 ms P [place] : -19 degrees R [place] : 56 degrees T [place] : -78 degrees Test Reason : Chest Pain Location : 3 : 2N 317-2 Overread By : Shae DELUNA Edited By : Shae DELUNA Referred By : EDUIN Acquired by : MARTHA LUNA PROG Observed: 12/01/2017 Status: COMPLETED Source: [place] 8:16 AM [facility] OTHER CAMPUS REPOSITORY HNO ID: [id number] Author: Dian (Rn) MITCHELL Youssef Service: (none) Author Type: Registered Nurse Type: Nursing Progress Note Filed: 12/01/2017 1:28 PM Note Text: Nursing Progress Note Patient Name: Maxx Knott Patient Location: [place] [address]637/[id number] Daily Note: 0700: Patient resting in bed with eyes closed. AV paced on tele, with trigemny. No respiratory distress. No needs. 0840: AM medications administered. Patient c/o midsternal chest pain aching/throbbing in nature. Denies radiation of pain. C/O slight lightheadedness and SOB that started about an hour ago. EKG previously completed and shown to Rosie WHITNEY. Rosie made aware of patient complaints. 1030: Patient resting in bed. Requesting CPAP on to sleep. RT notified. 1215: Patient eating lunch and tolerating. Patient requesting pain medication when due. No respiratory distress. No needs. 1328: patient resting in bed with eyes closed. No acute distress. Wearing CPAP. Previously medicated for ABD pain. This note was completed by: Dian Youssef RN CBC Collected: 12/01/2017 Status: F Source: [place] 3:09 AM [facility] OTHER CAMPUS REPOSITORY TYPE CODE TESTS RESULT OUT OF REFERENCE UNITS RANGE LAB WBC 3.70-11.00 k/uL WBC 7.73 LAB RBC 4.20-6.00 m/uL Low RBC 4.11 LAB HGB 13.0-17.0 g/dL Low Hemoglobin 12.6 LAB HCT 39.0-51.0 % Low Hematocrit 38.4 LAB MCV 80.0-100.0 fL MCV 93.4 LAB MCH 26.0-34.0 pG MCH 30.7 LAB MCHC 30.5-36.0 g/dL MCHC 32.8 LAB RDWCV 11.5-15.0 % RDW-CV High 16.7 LAB PLTCT 150-400 k/uL Platelet Count 220 LAB MPV 9.0-12.7 fL MPV 11.0 Performed By: #### CBC #### [facility] Laboratory [address] [facility] [phone] BASIC METABOLIC PANL Collected: 12/01/2017 Status: F Source: [place] 3:09 AM CLINIC OTHER CAMPUS REPOSITORY TYPE CODE TESTS RESULT OUT OF REFERENCE UNITS RANGE LAB GLU 74-99 mg/dL High Glucose 119 Result Comment: The [place] Diabetes Association (ADA) provides guidance for cutoff values for fasting glucose and random glucose. The ADA defines fasting as no caloric intake for at least 8 hours. Fas ting plasma glucose results between 100 to 125 mg/dL indicate increased risk for diabetes (prediabetes). Fasting plasma glucose results greater than or equal to 126 mg/dL meet the criteria for diagnosis of diabetes. In the absence of unequivocal hyperglycemia, results should be confirmed by repeat testing. In a patient with classic symptoms of hyperglycemia or hyperglycemic crisis, random plasma glucose results greater than or equal to 200 mg/dL meet the criteria for diagnosis of diabetes. Reference: Standards of Medical Care in Diabetes 2016, [place] Diabetes Association. Diabetes Care. 2016.39(Suppl 1). LAB BUN 9-24 mg/dL BUN 18 LAB CRET 0.73-1.22 mg/dL Creatinine 1.12 LAB NA 136-144 mmol/L Sodium 143 LAB K 3.7-5.1 mmol/L Potassium 3.8 LAB CL 97-105 mmol/L Chloride 101 LAB CO2 22-30 mmol/L CO2 High 32 LAB AGAP 9-18 mmol/L Anion Gap 10 LAB CA 8.5-10.2 mg/dL Calcium, Total 8.8 LAB GFRAA eGFR- Amer. >60 LAB GFRNAA . eGFR-All Other Races >60 Result Comment: eGFR (Estimated GFR) Units of measure: mL/min/1.73 meters squared eGFR is derived from the reexpressed MDRD Study equation using the following parameters: serum creatinine, age, gender and race. The creatinine assay has been calibrated to be traceable to IDMA. An eGFR <60 mL/min/1.73m2 for >3 months is consistent with chronic kidney disease. Refer to KDOQI guidelines for clinical interpretation. In patients with unstable renal function, e.g. those with acute kidney injury, the eGFR may not accurately reflect actual GFR. Performed By: #### BMP, MG1 #### [facility] [address] [place] [phone] MAGNESIUM Collected: 12/01/2017 Status: F Source: [place] 3:09 AM [facility] REPOSITORY TYPE CODE TESTS RESULT OUT OF REFERENCE UNITS RANGE LAB MG 1.7-2.3 mg/dL Magnesium 2.0 Performed By: #### BMP, MG1 #### [facility] [address] [place] [phone] NT PRO BNP Collected: 12/01/2017 Status: F Source: [place] 3:09 AM [facility] REPOSITORY TYPE CODE TESTS RESULT OUT OF REFERENCE UNITS RANGE LAB PBNP <125 pg/mL High PRO B Natr 1301 Peptide Performed By: #### NTBNP #### [facility] [address] [place] [phone] EKG Observed: 12/01/2017 Status: F Source: [place] 2:26 AM [facility] REPOSITORY NAME : MAXX KNOTT PID : [id number] : 1950 Gender : Male Race : ORD : [id number] Procedure Date : Dec 01 2017 02:26:14 Edit Date : Dec 03 2017 10:36:01 Diagnosis:AV dual-paced rhythm with prolonged AV conduction WITH OCCASIONAL PREMATURE VENTRICULAR COMPLEXES ABNORMAL ECG NO PREVIOUS ECGS AVAILABLE Confirmed by Shae DELUNA ([id number]) on 12/03/2017 10:35:55 AM Ventricular Rate : 67 BPM Atrial Rate : 67 BPM P-R Interval : 236 ms QRS Duration : 126 ms Q-T Interval : 464 ms QTC Calculation(Bezet) : 490 ms P [place] : -25 degrees R [place] : 77 degrees T [place] : -43 degrees Test Reason : Chest Pain Location : 3 : 2N 317-2 Overread By : Shae DELUNA Edited By : Shae DELUNA Referred By : EDUIN, Acquired by : JEREMY TROPONIN T Collected: 11/30/2017 Status: F Source: [place] 9:01 PM CLINIC OTHER CAMPUS REPOSITORY TYPE CODE TESTS RESULT OUT OF REFERENCE UNITS RANGE LAB TROPT 0.000-0.029 ng/mL Troponin T <0.010 Performed By: #### BRAYAN #### [facility] [address] [facility] [phone] NURSING PROG Observed: 11/30/2017 Status: COMPLETED Source: [place] 7:00 PM [facility] OTHER CAMPUS REPOSITORY HNO ID: [id number] Author: Bernadette (Rn) MITCHELL Butterfield Service: (none) Author Type: Registered Nurse Type: Nursing Progress Note Filed: 12/01/2017 5:23 AM Note Text: Nursing Progress Note Patient Name: Maxx Knott Patient Location: [place] [address]/[id number] 1900-Assumed care of patient. Patient sitting up in bed. Lung sounds diminished. Denies cough at this time. Colostomy bad intact. Stoma protruding into the bag. Patient c/o tenderness Tele a paced with occassional pvcs 2100- patient resting in bed watching tv. Denies any shortness of breath or cough. No s/s of distress. Tele continues to be a paced with occassional PVCs 2300- Patient resting in bed. Respiratory therapy contacted to apply cpap for sleeping per order/ Patient denies any sob or chest pain tele continues to be a paced. with occassional PVCs. 2330- RT into see patient due to cpap alarming. 2400- RT into see pt due to CPAP alarming, 0100- Patient resting in bed with eyes closed. Respirations even and unlabored. cpap on. Tele Continues to be paced with pvcs more frequently. No s/s of distress. 0200- Hospitalist aware of the frequency increasing in the amount of PVCs. Orders for labs and EKG. 0230- EKG complete. Unchanged from previous. 0350- Spoke to Dr. Mcdonald re labs and EKG. No new orders at this time. Patient is stable. If PVCs continue into the day a cariology consult may need to be considered. 0500- patient resting in bed. cpap on. Tele continues to be paced with PVCs. No s/s of distress. This note was completed by: Alexandra Butterfield RN CONSULT Observed: 11/30/2017 Status: COMPLETED Source: [place] 6:07 PM [facility] REPOSITORY HNO ID: [id number] Author: Britney Waters Service: General Surgery Author Type: Physician Type: Consults Filed: 11/30/2017 6:09 PM Note Text: Consult dictated. Prolapsing transverse colostomy - reduced. No evidence for surgical abdomen. Instructed patient on self-reduction if recurs. Please call if needed. TROPONIN T Collected: 11/30/2017 Status: F Source: [place] 5:17 PM [facility] REPOSITORY TYPE CODE TESTS RESULT OUT OF REFERENCE UNITS RANGE LAB TROPT 0.000-0.029 ng/mL Troponin T <0.010 Performed By: #### BRAYAN #### [facility] [address] [place] [address] NURSING PROG Observed: 11/30/2017 Status: COMPLETED Source: [place] 2:25 PM [facility] REPOSITORY HNO ID: [id number] Author: Sumanth (Rn) MITCHELL Craven Service: (none) Author Type: Registered Nurse Type: Nursing Progress Note Filed: 11/30/2017 6:11 PM Note Text: Nursing Progress Note Patient Name: Maxx Knott Patient Location: [place] [id number] Daily Note: Received patient from Main [facility] ED-AANDOx3, VSS. C/O stomal pain-STRIP MACHINE OPERATOR aware. Telemetry placed-RPR w/PVCs. RLQ stoma draining brown liquid stool with noted prolapsed bowel. Patient had prolapsed bowel reduced in ED @ [facility] prior arrival. HL patent AND flushed with + bld-return. 1-2+ BLE edema. Up with 1-assist due to recent fall @ home. Voided pale-yl urine per urinal. Occas dry no-prod cough. Denies any SOB, LS-dim t/o. STRIP MACHINE OPERATOR @ bedside 1620-Resting in bed, medicated for pain as requested for stoma pain-will monitor. Ate 100% diet-telemetry maintained without ectopy, RPR. Denies any SOB/CP @ this time. 1814-No chg in assessment-IPCs placed bilat LEs. Telemetry maintained without ectopy, RPR. Dr. Waters vs AND reduced prolapsed bowel, belem well. Resting in bed-voiding qs per urinal This note was completed by: Sumanth Craven RN HISTORY PHYSICAL Observed: 11/30/2017 Status: COMPLETED Source: [place] 2:10 PM CLINIC OTHER CAMPUS REPOSITORY HNO ID: [id number] Author: Rosie Verdin) Brian Service: Hospital Medicine Author Type: Nurse Practitioner Type: HANDP Filed: 11/30/2017 4:10 PM Note Text: DEPARTMENT OF HOSPITAL MEDICINE HISTORY AND PHYSICAL EXAM SERVICE DATE: 11/30/2017 SERVICE TIME: 2:10pm Primary Care Physician: Bijan Perez MD NIGHT AND WEEKEND COVERAGE: Nights: Please contact pager [phone]. Subjective CHIEF COMPLAINT: Chest pain and intestinal prolapse HPI: This is a 67 year old male with an extensive past medical history including sigmoid diverticulitis with perforation s/p diverting loop transverse colostomy July 2016 with recurring stoma prolapse, CAD s/p CABG and PCI with GREY to LAD in January 2017, chronic diastolic heart failure, AAA without rupture, COPD, YUSUF (utilizes cpap), current every day smoker, severe depression with suicidal ideation, 2nd degree AV block s/p PPM, and DDD with opioid dependence, who presents with chest pain, shortness of breath and intestinal prolapse. He woke up this morning around 8am with mid sternal chest pressure and ache, 6/10 in severity with associated shortness of breath, lightheadedness and tingling in bilateral hands.The pain did not radiate. He did have a normal stress test 07/30/2017 He presented to [facility] [place] ER and the pain did subside after receiving IV morphine but is still present currently. He also has swelling to bilateral lower extremities and generalized weakness. Has recurrent right colostomy intestinal prolapse with multiple ER visits and hospitalizations. Has been taught to reduce the stoma but appears that he is unsuccessful at doing so. Has associated abdominal pain that is severe and sharp, non-radiating. Denies blood in the stool. PAST MEDICAL HISTORY Diagnosis Date - AAA (abdominal aortic aneurysm) without rupture ([facility]) 05/13/[address] a/p - CAD (coronary artery disease) 2005 CAD s/p CABG x3 (BKSQ-[id number]-ancetm, UYK-KWE-bdlkah, AHC-OM1-xtmfsddo) (2006 at [place]) - COPD (chronic obstructive pulmonary disease) ([facility]) - Current every day smoker PT SMOKES A PIPE - Diverticulitis Perforated Diverticulitis - Diverticulitis of sigmoid colon 05/15/2017 Added automatically from request for surgery [id number] - Hx of CABG - Pacemaker 02/16/2017 s/p PPM () 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 - Peritonitis ([facility]) PAST SURGICAL HISTORY Procedure Laterality Date - APPENDECTOMY HX - COLOSTOMY 07/2016 Diverting Loop Colostomy of the Transverse Colon - HEART SURGERY HX triple bypass 10 yrs ago - PPM IMPLANT - STENT - CORONARY FAMILY HISTORY Problem Relation Age of Onset - Coronary Artery Disease Father - Hyperlipidemia Father Social History Substance Use Topics - Smoking status: Current Every Day Smoker Packs/day: 0.50 Years: 35.00 Types: Pipe, Cigarettes - Smokeless tobacco: Never Used Comment: Quit cigarettes 11-16-16 now smoking 4 pipes as of 04-18-17 - Alcohol use No MEDICATIONS: Reviewed Prescriptions Prior to Admission: ondansetron (ZOFRAN) 4 mg tablet Take 4 mg by mouth every 6 hours as needed. Disp: Rfl: 11/30/2017 at Unknown time oxyCODONE-acetaminophen (PERCOCET) 10-325 mg tablet Take 1 tablet by mouth every 6 hours as needed for Pain. Has had both 5 and 10 mg strength prescribed over past year, says he currently has 10 mg strength at home Disp: Rfl: 11/29/2017 at Unknown time vitamin B complex (B COMPLEX ORAL) Take 1 tablet by mouth once daily. Disp: Rfl: 11/29/2017 at Unknown time aspirin, enteric coated (ASPIRIN, ENTERIC COATED) 81 mg EC tablet Take 81 mg by mouth once daily. Disp: Rfl: 11/29/2017 at Unknown time cyclobenzaprine (FLEXERIL) 10 mg tablet Take 1 tablet by mouth at bedtime as needed for Muscle Spasm. Disp: Rfl: 11/29/2017 at Unknown time amLODIPine (NORVASC) 10 mg tablet Take 10 mg by mouth once daily. Disp: Rfl: 11/29/2017 at Unknown time loratadine 10 mg cap Take 1 capsule every day by oral route as needed Disp: Rfl: Past Week at Unknown time pravastatin (PRAVACHOL) 40 mg tablet Take 40 mg by mouth daily at bedtime. Disp: Rfl: 11/29/2017 at Unknown time gabapentin (NEURONTIN) 300 mg capsule Take 2 capsules by mouth daily at bedtime for 90 days. Disp: 90 capsule Rfl: 0 11/29/2017 at Unknown time metoprolol succinate ER (TOPROL XL) 100 mg Tb24 Take 1 tablet by mouth once daily. Disp: 90 tablet Rfl: 4 11/29/2017 at Unknown time QUEtiapine (SEROQUEL) 200 mg tablet Take 2 tablets by mouth daily at bedtime. Disp: 60 tablet Rfl: 0 11/29/2017 at Unknown time MULTIVIT WITH IRON,MINERALS (MULTIVITAMIN AND MINERALS ORAL) Take 1 capsule by mouth once daily. Disp: Rfl: 11/29/2017 at Unknown time albuterol HFA (PROVENTIL HFA, VENTOLIN HFA) 90 mcg/actuation inhaler Inhale 2 Puffs as instructed every 4 hours as needed for Wheezing/Shortness of Breath. Disp: Rfl: Past Week at Unknown time fluticasone (FLONASE) 50 mcg/actuation nasal spray Use 1 [place] in the nose once daily as needed. Disp: Rfl: 11/30/2017 at Unknown time losartan (COZAAR) 100 mg tablet Take 100 mg by mouth once daily. Disp: Rfl: 11/29/2017 at Unknown time furosemide (LASIX) 20 mg tablet Take 40 mg by mouth once daily as needed. Disp: Rfl: 11/30/2017 at Unknown time COMPOUNDED PRESCRIPTION One Piece Ostomy Pouch Item Type: Coloplast Sensura One Piece Non-Sterile with Window 07/05-05/01'' ?5/BoxICD 10: Prolapsed Stoma K94.09 Disp: 1 Box Rfl: 0 Unknown at Unknown time COMPOUNDED PRESCRIPTION Paste: Convatec Stomahesive 1 tubeICD 10: Prolapsed Stoma K 94.09 Disp: 1 Tube Rfl: 0 Unknown at Unknown time nitroglycerin sublingual (NITROSTAT) 0.[address](1) TABLET UNDER TONGUE NEEDED FOR CHEST PAIN. IF NO PAIN RELIEF CALL 911 Disp: 25 tablet Rfl: 0 Unknown at Unknown time ALLERGIES Allergen Reactions - Altaseptic Unknown - Brilinta [Ticagrelo* Unknown - Crestor [Rosuvastat* Myalgia - Hctz [Amiloride-Hyd* Swelling - Moxifloxacin Swelling - Other [place]-3s Unknown brelinta - Ramipril Swelling Other reaction(s): Facial swelling - Simvastatin Myalgia Other reaction(s): Facial swelling - Voltaren [Diclofena* Unknown REVIEW OF SYSTEM: GENERAL: No weight loss, malaise or fevers HEENT: Negative for frequent or significant headaches, no changes in hearing or vision, no nose bleeds or other nasal problems NECK: Negative for lumps, goiter, pain and significant neck swelling RESPIRATORY: Negative for cough, hemoptysis, wheezing. + COPD, shortness of breath CARDIOVASCULAR: + Chest pain, leg swelling GI: No nausea, vomiting, or diarrhea. + Prolapsed intestine right colostomy : No history of dysuria, frequency or incontinence MUSCULOSKELETAL: Negative for joint pain or swelling, back pain or muscle pain SKIN: Negative for lesions, rash, and itching NEURO: No history of headaches, syncope, paralysis, seizures or tremors Objective PHYSICAL EXAM: BP 169/62 Pulse 56 Temp (Src) 98.3 (Oral) Resp 18 Ht 5' 8 (1.73m) Wt 201 lb 1 oz (91.2kg) SpO2 97% BMI 30.58 kg/(m2). GENERAL: Alert, no distress, cooperative SKIN: Skin color, texture, turgor normal. No rashes or lesions. HEAD/SINUSES: No significant findings. AT/NC EYES: PERRLA, EOMI OROPHARYNX: Lips, mucosa, and tongue normal. Teeth and gums normal. Oropharynx normal. LUNGS: Lungs clear to auscultation, no adventitious breath sounds, no acute respiratory distress CARDIAC: Normal S1 and S2; RRR no rubs, murmurs, or gallops ABDOMEN: Right colostomy with prolapsed stoma, no evidence of perforation, the bowel is pink and appears well perfused. Stool is without blood EXTREMITIES: 1-2 + pitting edema to BLE, no ulcerations, brisk cap refill NEURO: Grossly normal cognition, motor function, and cranial nerves III-XII PULSES: 2+ radial, 2+ dorsalis pedis Lines, Drains, and Airways Line Peripheral 11/30/17 0900 Left Forearm 20 Gauge less than 1 day Reviewed lines, drains, AND airways. Need to be continued for medical treatment DATA: Diagnostic tests reviewed for today's visit: Most recent labs and imaging results. Recent Labs 11/30/17 0900 11/30/17 0858 WBC 8.21 -- HB 13.5 -- PLT 245 -- NA 141 -- K 3.8 -- CO2 26 -- BUN 11 -- CREAT 0.98 -- AST 16 -- ALT 22 -- TBILI 0.3 -- ALKPHOS 83 -- LACT -- 1.7 XR abdomen 11/30/2017 IMPRESSION: No radiographic evidence of an acute abdominal process. Assessment/Plan Active Problems: Chest pain Mid sternal chest pressure, /10 since 8am with associated shortness of breath and lightheadedness Had [facility] January 2017 with mild non obstructive CAD Had negative stress test 07/30/2017 Will cycle cardiac enzymes Monitor on telemetry Check EKG in am Continue ASA, statin, BB and ARB Could be having chest pain due to FVO Acute on chronic systolic heart failure Has lower extremity swelling and shortness of breath NT Pro BNP 1426 Will treat with IV lasix 20mg BID with potassium supplementation Monitor renal function and ltyes closely Strict I/O, daily weight, low salt diet ECHO 04/02/2017 mild LV hypertrophy with mildly decreased LV systolic dysfunction EF 50% Unable to obtain repeat ECHO over the weekend due to service unavailable at this facility Sigmoid diverticulitis with perforation s/p right colostomy 07/2016 Recurrent stoma prolapse Has recurring stoma prolapse with multiple hospitalizations and ER visits Stoma reduced at [facility] [place] prior to admission but is again prolapsed Intestine pink and appears well perfused Will consult General surgery Patient needs to follow up with colorectal surgery outpatient for possible reversal YUSUF Utilizes cpap at home Continue Cpap qHS with home settings DDD PRN flexeril and percocet Nicotine abuse Counseled on smoking cessation Nicotine patch while in house History of severe depression with suicide attempts Currently appears stable, no SI Continue Seroquel 400mg Medication and Non-Pharmacologic VTE Prophylaxis/Anticoagulants: IPC VTE Prophylaxis: VTE prophylaxis appropriate Disposition: Home Plan of care discussed with: Attending, Patient and RN SIGNATURE: Rosie Torres APRN.CNP PATIENT NAME: Maxx Knott DATE: November 30, 2017 TIME: 2:10 PM PAGER/CONTACT #: [phone] ED NOTE Observed: 11/30/2017 Status: COMPLETED Source: [place] 12:45 PM [facility] REPOSITORY HNO ID: [id number] Author: Radha KingRn) MITCHELL Patiño Service: Emergency Medicine Author Type: Registered Nurse Type: ED Notes Filed: 11/30/2017 12:46 PM Note Text: Juan Pablo rico here to diamond picker pt for transport to [facility]. ALLIED HEALTH Observed: 11/30/2017 Status: COMPLETED Source: [place] 12:20 PM [facility] REPOSITORY HNO ID: [id number] Author: Stephanie KingRn) MITCHELL [place] Service: Wound/Ostomy Author Type: Registered Nurse Type: Allied Health Filed: 11/30/2017 12:23 PM Note Text: ET/WOCN Nursing Consult Topic: ET/WOCN Consultation Note 11/30/2017 ET Outcome: Consult from ED for patient with Loop Transverse Colostomy. Patient very anxious and even touching or getting fingers near ostomy makes him jump. Patient informed that colostomy will probably prolapse again and he can gently push back in place. He was willing to try a prolapse cap with a belt to assist with keeping stoma in place. One yellow convex shani flex flange placed over stoma and secured with brava shani belt. ET's Next Scheduled Visit: Patient to be admitted to [facility] as no beds available here. Time: 1 hour 15 minutes MAIA Gustafson, RN, CWOCN M-F 8am-4pm Weekends/Holidays 8am-3pm Pager #[phone] ED NOTE Observed: 11/30/2017 Status: COMPLETED Source: [place] 11:46 AM [facility] REPOSITORY HNO ID: [id number] Author: Radha KingRn) MITCHELL Patiño Service: Emergency Medicine Author Type: Registered Nurse Type: ED Notes Filed: 11/30/2017 11:46 AM Note Text: Report called to [facility], report to Sumanth GONZALEZ pt going to [facility]. ED NOTE Observed: 11/30/2017 Status: COMPLETED Source: [place] 9:59 AM [facility] REPOSITORY HNO ID: [id number] Author: Radha (Rn) MITCHELL Patiño Service: Emergency Medicine Author Type: Registered Nurse Type: ED Notes Filed: 11/30/2017 9:59 AM Note Text: Colorectal at bedside and was able to reduce pts stoma, pt tolerated well. CONSULT PROG Observed: 11/30/2017 Status: COMPLETED Source: [place] 9:57 AM [facility] REPOSITORY HNO ID: [id number] Author: Ratna Ernandez) Chauncey Service: Colorectal Author Type: Fellow Type: Consult Progress Note Filed: 11/30/2017 10:13 AM Note Text: CORS CONSULT SERVICE DATE: 11/30/2017 SERVICE TIME: 10am HPI Maxx Knott is a 67 year old male who is being seen at the request of Dr. Rocha in consultation for advice and/or opinion regarding the management of recurring prolapse of transverse colostomy. Mr Knott has had multiple presentations in the past 12 months with the same complaint and his prolapse has been easily reduced in the ED. He is under active follow up with Dr Yoo and was due to see him in the clinic on 11/28/17. PAST MEDICAL HISTORY: PAST MEDICAL HISTORY Diagnosis Date - AAA (abdominal aortic aneurysm) without rupture ([facility]) 05/13/[address] a/p - CAD (coronary artery disease) 2005 CAD s/p CABG x3 (ZHYY-SMX-zpnlev, ILC-TFO-ecqcue, GNX-OA2-ullahhen) (2006 at [place]) - COPD (chronic obstructive pulmonary disease) ([facility]) - Current every day smoker PT SMOKES A PIPE - Diverticulitis Perforated Diverticulitis - Diverticulitis of sigmoid colon 05/15/2017 Added automatically from request for surgery [id number] - Hx of CABG - Pacemaker 02/16/2017 s/p PPM () 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 - Peritonitis ([facility]) PAST SURGICAL HISTORY: PAST SURGICAL HISTORY Procedure Laterality Date - APPENDECTOMY HX - COLOSTOMY 07/2016 Diverting Loop Colostomy of the Transverse Colon - HEART SURGERY HX triple bypass 10 yrs ago - PPM IMPLANT - STENT - CORONARY REVIEW OF SYSTEMS General: No weight loss, malaise or fevers. FAMILY HISTORY: FAMILY HISTORY Problem Relation Age of Onset - Coronary Artery Disease Father - Hyperlipidemia Father SOCIAL HISTORY: Social History Substance Use Topics - Smoking status: Current Every Day Smoker Packs/day: 0.50 Years: 35.00 Types: Pipe, Cigarettes - Smokeless tobacco: Never Used Comment: Quit cigarettes 11-16-16 now smoking 4 pipes as of 04-18-17 - Alcohol use No MEDICATIONS: Prior to Admission Medications: tamsulosin ER (FLOMAX) 0.4 mg cp24 Take 0.4 mg by mouth once daily as needed. ondansetron (ZOFRAN) 4 mg tablet Take 4 mg by mouth every 6 hours as needed. oxyCODONE-acetaminophen (PERCOCET) 10-325 mg tablet Take 1 tablet by mouth every 6 hours as needed for Pain. Has had both 5 and 10 mg strength prescribed over past year, says he currently has 10 mg strength at home vitamin B complex (B COMPLEX ORAL) Take 1 tablet by mouth once daily. aspirin, enteric coated (ASPIRIN, ENTERIC COATED) 81 mg EC tablet Take 81 mg by mouth once daily. cyclobenzaprine (FLEXERIL) 10 mg tablet Take 1 tablet by mouth at bedtime as needed for Muscle Spasm. amLODIPine (NORVASC) 10 mg tablet Take 10 mg by mouth once daily. loratadine 10 mg cap Take 1 capsule every day by oral route as needed pravastatin (PRAVACHOL) 40 mg tablet Take 40 mg by mouth daily at bedtime. gabapentin (NEURONTIN) 300 mg capsule Take 2 capsules by mouth daily at bedtime for 90 days. metoprolol succinate ER (TOPROL XL) 100 mg Tb24 Take 1 tablet by mouth once daily. QUEtiapine (SEROQUEL) 200 mg tablet Take 2 tablets by mouth daily at bedtime. COMPOUNDED PRESCRIPTION One Piece Ostomy Pouch Item Type: Coloplast Sensura One Piece Non-Sterile with Window 38-4 1/2'' ?5/BoxICD 10: Prolapsed Stoma K94.09 COMPOUNDED PRESCRIPTION Paste: Convatec Stomahesive 1 tubeICD 10: Prolapsed Stoma K 94.09 MULTIVIT WITH IRON,MINERALS (MULTIVITAMIN AND MINERALS ORAL) Take 1 capsule by mouth once daily. albuterol HFA (PROVENTIL HFA, VENTOLIN HFA) 90 mcg/actuation inhaler Inhale 2 Puffs as instructed every 4 hours as needed for Wheezing/Shortness of Breath. fluticasone (FLONASE) 50 mcg/actuation nasal spray Use 1 [place] in the nose once daily as needed. nitroglycerin sublingual (NITROSTAT) 0.[address] ONE(1) TABLET UNDER TONGUE NEEDED FOR CHEST PAIN. IF NO PAIN RELIEF CALL 911 losartan (COZAAR) 100 mg tablet Take 100 mg by mouth once daily. furosemide (LASIX) 20 mg tablet Take 40 mg by mouth once daily as needed. Current hospital medications: lactated ringers 500 mL iv bolus 500 mL INTRAVENOUS ONCE ALLERGIES: ALLERGIES Allergen Reactions - Altaseptic Unknown - Brilinta [Ticagrelo* Unknown - Crestor [Rosuvastat* Myalgia - Hctz [Amiloride-Hyd* Swelling - Moxifloxacin Swelling - Other [place]-3s Unknown brelinta - Ramipril Swelling Other reaction(s): Facial swelling - Simvastatin Myalgia Other reaction(s): Facial swelling - Voltaren [Diclofena* Unknown PHYSICAL EXAM: Constitutional: Patient Vitals for the past 24 hrs: BP Temp Temp src Pulse Resp SpO2 Height Weight 11/30/17 0826 124/51 36.9 ?C (98.4 ?F) Oral 71 18 99 % 172.7 cm (5' 8) 87.5 kg (193 lb) Abdominal exam demonstrated mildly prolapsed transverse loop colostomy with fecal contents in colostomy bag. The colostomy is moist, pink and well perfused with active peristalsis. Rest of abdominal exam is unremarkable. Assessment: Recurrent prolapse of transverse colostomy. Plan: After administrating analgesia and getting Mr Knott to lie flat, the colostomy was easily reduced with gentle pressure. I have explained to Mr Knott that this will occur again and have given him advice on how to place gentle pressure on it to try to reduce it himself at home. If it becomes large and irreducible he will need to return to the ED. I have asked stomatherapy to see with regard to correct fitting of his abdominal binder to prevent this recurring. He should follow up with Dr Yoo as planned for consultation regarding surgical options. SIGNATURE: Ratna Grossman MD PATIENT NAME: Maxx Knott DATE: November 30, 2017 TIME: 10:01 AM ED NOTE Observed: 11/30/2017 Status: COMPLETED Source: [place] 9:40 AM [facility] HNO ID: [id number] Author: aRdha KingRn) MITCHELL Patiño Service: Emergency Medicine Author Type: Registered Nurse Type: ED Notes Filed: 11/30/2017 9:40 AM Note Text: Colorectal at bedside. meds given per orders. EKG1 Observed: 11/30/2017 Status: F Source: [place] 9:39 AM [facility] REPOSITORY NAME : MAXX KNOTT PID : [id number] : 1950 Gender : Male Race : ORD : Procedure Date : Nov 30 2017 09:39:25 Edit Date : Dec 14 2017 08:26:31 Diagnosis:ATRIAL-PACED RHYTHM WITH PROLONGED AV CONDUCTION WITH OCCASIONAL PREMATURE VENTRICULAR COMPLEXES POSSIBLE INFERIOR MYOCARDIAL INFARCTION , AGE UNDETERMINED CANNOT EXCLUDE ANTERIOR MYOCARDIAL INFARCTION , AGE UNDETERMINED ABNORMAL ECG NOTE: PLEASE SEE PHYSICIAN'S NOTE FROM E.D. VISIT Confirmed by OVERREAD REPORT, NOT AN (1), copy editor VICTOR HUGO LEDESMA ([id number]) on 12/14/2017 8:26:27 AM Ventricular Rate : 64 BPM Atrial Rate : 64 BPM P-R Interval : 218 ms QRS Duration : 106 ms Q-T Interval : 430 ms QTC Calculation(Bezet) : 443 ms P [place] : 38 degrees R [place] : 38 degrees T [place] : 39 degrees Test Reason : Location : 2 : EDNS Overread By : OVERREAD REPORT,NOT AN Edited By : VICTOR HUGO LEDESMA Referred By : , Acquired by : , PROGRESS Observed: 11/30/2017 Status: COMPLETED Source: [place] 9:32 AM [facility] REPOSITORY HNO ID: [id number] Author: Laurel Looney (Rt) Service: (none) Author Type: Scraper Meat Type: Progress Notes Filed: 11/30/2017 9:32 AM Note Text: Radiology Service Progress Note PATIENT NAME: Maxx Knott DATE OF SERVICE: November 30, 2017 TIME: 9:32 AM PATIENT IDENTITY VERIFICATION COMPLETED USING TWO (2) METHODS: Patient confirmed name verbally and ID band matches.. PATIENT GENDER DATA: Male PATIENT RELEVANT IMPLANT DATA REVIEWED: Not Applicable RADIOLOGY DEPARTMENT: General X-ray: Exam(s) Completed: Chest X-Ray Abdomen X-Ray Abdomen PERIPHERAL IV DATA: Not applicable SIGNED BY: RT Aayush November 30, 2017 9:32 AM XR ACUTE ABD SERIES Observed: 11/30/2017 Status: F Source: [place] 2V ABD+CXR 9:30 AM [facility] REPOSITORY * * *Final Report* * * DATE OF EXAM: Nov 30 2017 9:30AM EGX [id number] - XR ACUTE ABD SERIES 2V ABD+CXR / PROCEDURE REASON: Nausea, vomiting * * * * Physician Interpretation * * * * EXAMINATION: XR ACUTE ABD SERIES 2V ABD+CXR HISTORY: Nausea, vomiting Nausea, vomiting . TECHNIQUE: XR ACUTE ABD SERIES 2V ABD+CXR Laterality: NOT APPLICABLE Number of different views (projections): 2 M: XB_1 COMPARISON: Abdominal x-ray, chest x-ray 10/27/2017. RESULT: Lines, tubes, and devices: Median sternotomy wires are intact, there is a pacemaker overlying the left chest wall with leads terminating in the right atrium and right ventricle. Lungs: Mild elevation of the left hemidiaphragm, stable. Redemonstrated is an ovoid opacity that abuts the left hemidiaphragm that corresponds to herniated stomach/mesenteric fat through a defect in the left hemidiaphragm seen on previous CT. No significant pleural effusion. No pneumothorax. No focal airspace consolidation. Abdomen:Nondilated loops of air-filled bowel. No pathologic calcifications. There is a stoma present in the right lower quadrant. Degenerative changes of the lumbar spine. No free air. IMPRESSION: No radiographic evidence of an acute abdominal process. Prep Room Supervisor: MAGI Transcribe Date/Time: Nov 30 2017 9:45A Dictated by : CRISTI BENITO MD This examination was interpreted and the report reviewed and electronically signed by: CHRISTIAN CLOUD MD on Nov 30 2017 12:08PM EST [id number] ED NOTE Observed: 11/30/2017 Status: COMPLETED Source: [place] 9:00 AM [facility] REPOSITORY HNO ID: [id number] Author: Charli (Kurtis Gonzales Service: Emergency Medicine Author Type: Bed Setter and Scraper Meat Type: ED Notes Filed: 11/30/2017 9:05 AM Note Text: Labs including Lactic acid drawn and sent CBC AND DIFFERENTIAL Collected: 11/30/2017 Status: F Source: [place] 9:00 AM [facility] REPOSITORY TYPE CODE TESTS RESULT OUT OF RANGE REFERENCE UNITS LAB WBC 3.70-11.00 k/uL WBC 8.21 Result Comment: No clot detected. LAB RBC 4.20-6.00 m/uL RBC 4.40 LAB HGB 13.0-17.0 g/dL Hemoglobin 13.5 LAB HCT 39.0-51.0 % Hematocrit 39.8 LAB MCV 80.0-100.0 fL MCV 90.5 LAB MCH 26.0-34.0 pG MCH 30.7 LAB MCHC 30.5-36.0 g/dL MCHC 33.9 LAB RDWCV 11.5-15.0 % RDW-CV High 15.9 LAB PLTCT 150-400 k/uL Platelet Count 245 LAB MPV 9.0-12.7 fL MPV 10.6 LAB ANEUT % Neut% 76.8 LAB AANEUT 1.45-7.50 k/uL Abs Neut 6.30 LAB ALYMP % Lymph% 14.5 LAB AALYMP 1.00-4.00 k/uL Abs Lymph 1.19 LAB AMONO % [place]% 6.8 LAB AAMONO <0.87 k/uL Abs [place] 0.56 LAB AEOS % Eosin% 1.7 LAB AAEOS <0.46 k/uL Abs Eosin 0.14 LAB ABASO % Baso% 0.2 LAB AABASO <0.11 k/uL Abs Baso <0.03 LAB AUNRBC 0 /100 WBC NRBCs 0.0 LAB ABNRBC <0.01 k/uL Absolute nRBC <0.01 LAB DTYP DTYPE Auto Diff Performed By: #### CBCDIF, CKCKMB, CMP, LIPA, MG1, NTBNP, BRAYAN #### [facility] [address], [place] [address] CK, TOTAL AND CKMB Collected: 11/30/2017 Status: F Source: [place] 9:00 AM [facility] REPOSITORY TYPE CODE TESTS RESULT OUT OF RANGE REFERENCE UNITS LAB CK 51-298 U/L Low CK 44 Result Comment: Please note the updated, gender-specific reference range for this test (effective 04/13/2016). LAB MB <7.7 ng/mL 2.2 MB LAB CKMBRI 0.0-4.0 % CK MB % not reported CK MB % with CK <100 U/L. Performed By: #### CBCDIF, CKCKMB, CMP, LIPA, MG1, NTBNP, BRAYAN #### [facility] [address] [place], [place] [address] COMP METABOLIC PANEL Collected: 11/30/2017 Status: F Source: [place] 9:00 AM [facility] REPOSITORY TYPE CODE TESTS RESULT OUT OF REFERENCE UNITS RANGE LAB TP 6.3-8.0 g/dL Protein, Total 6.4 LAB ALB 3.9-4.9 g/dL Albumin 4.1 LAB CA 8.5-10.2 mg/dL Calcium, Total 9.3 LAB TBIL 0.2-1.3 mg/dL Bilirubin, Total 0.3 LAB ALKP 36-108 U/L Alkaline Phosphatase 83 LAB AST 14-40 U/L AST 16 LAB GLU 74-99 mg/dL Glucose High 136 Result Comment: The [place] Diabetes Association (ADA) provides guidance for cutoff values for fasting glucose and random glucose. The ADA defines fasting as no caloric intake for at least 8 hours. Fas ting plasma glucose results between 100 to 125 mg/dL indicate increased risk for diabetes (prediabetes). Fasting plasma glucose results greater than or equal to 126 mg/dL meet the criteria for diagnosis of diabetes. In the absence of unequivocal hyperglycemia, results should be confirmed by repeat testing. In a patient with classic symptoms of hyperglycemia or hyperglycemic crisis, random plasma glucose results greater than or equal to 200 mg/dL meet the criteria for diagnosis of diabetes. Reference: Standards of Medical Care in Diabetes 2016, [place] Diabetes Association. Diabetes Care. 2016.39(Suppl 1). LAB BUN 9-24 mg/dL BUN 11 LAB CRET 0.73-1.22 mg/dL Creatinine 0.98 LAB NA 136-144 mmol/L Sodium 141 LAB K 3.7-5.1 mmol/L Potassium 3.8 LAB CL 97-105 mmol/L Chloride 103 LAB CO2 22-30 mmol/L CO2 26 LAB AGAP 9-18 mmol/L Anion Gap 12 LAB ALT 10-54 U/L ALT 22 LAB GFRAA eGFR- Amer. >60 LAB GFRNAA . eGFR-All Other Races >60 Result Comment: eGFR (Estimated GFR) Units of measure: mL/min/1.73 meters squared eGFR is derived from the reexpressed MDRD Study equation using the following parameters: serum creatinine, age, gender and race. The creatinine assay has been calibrated to be traceable to IDMS. An eGFR <60 mL/min/1.73m2 for >3 months is consistent with chronic kidney disease. Refer to KDOQI guidelines for clinical interpretation. In patients with unstable renal function, e.g. those with acute kidney injury, the eGFR may not accurately reflect actual GFR. Performed By: #### CBCDIF, CKCKMB, CMP, LIPA, MG1, NTBNP, BRAYAN #### [facility] [address] [place] [address] LIPASE Collected: 11/30/2017 Status: F Source: [place] 9:00 [facility] REPOSITORY TYPE CODE TESTS RESULT OUT OF REFERENCE UNITS RANGE LAB LIPA 16-61 U/L Low Lipase 14 Performed By: #### CBCDIF, CKCKMB, CMP, LIPA, MG1, NTBNP, BRAYAN #### [place] [address] MAGNESIUM Collected: 11/30/2017 Status: F Source: [place] 9:00 [facility] REPOSITORY TYPE CODE TESTS RESULT OUT OF REFERENCE UNITS RANGE LAB MG 1.7-2.3 mg/dL Magnesium 1.9 Performed By: #### CBCDIF, CKCKMB, CMP, LIPA, MG1, NTBNP, BRAYAN #### [place] [id number] [place] [address] NT PRO BNP Collected: 11/30/2017 Status: F Source: [place] 9:00 [facility] REPOSITORY TYPE CODE TESTS RESULT OUT OF REFERENCE UNITS RANGE LAB PBNP <125 pg/mL High PRO B Natr 1426 Peptide Performed By: #### CBCDIF, CKCKMB, CMP, LIPA, MG1, NTBNP, BRAYAN #### [place] [address] TROPONIN T Collected: 11/30/2017 Status: F Source: [place] 9:00 [facility] REPOSITORY TYPE CODE TESTS RESULT OUT OF REFERENCE UNITS RANGE LAB TROPT 0.000-0.029 ng/mL Troponin T <0.010 Performed By: #### CBCDIF, CKCKMB, CMP, LIPA, MG1, NTBNP, BRAYAN #### [facility] [address] [place], [place] [address] ED PROV NOTE Observed: 11/30/2017 Status: COMPLETED Source: [place] 8:58 AM [facility] [place] REPOSITORY HNO ID: [id number] Author: Beata Rocha MD Service: Emergency Medicine Author Type: Physician Type: ED Provider Notes Filed: 11/30/2017 12:17 PM Note Text: ED Provider Note Patient Name: Maxx Knott SERVICE DATE: 11/30/17 History Patient presents with: Abdominal Pain 67 year old male past medical history of AAA without rupture, coronary artery disease status post CABG ?3, COPD, diverticulitis status post right sided colostomy (diverting loop colostomy of the transverse colon), 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 Patient had similar episode of intestinal prolapse 11/26/17 seen at [facility], ice pack applied, given analgesia and stoma reduced with patient d/c home with abdominal binder. History provided by: Patient and medical records PAST MEDICAL HISTORY Diagnosis Date - AAA (abdominal aortic aneurysm) without rupture ([facility]) 05/13/[address] a/p - CAD (coronary artery disease) 2005 CAD s/p CABG x3 (LCVQ-LPF-hwbwyt, COY-EXO-axptsk, CVF-PS1-lishexdk) (2006 at [place]) - COPD (chronic obstructive pulmonary disease) ([facility]) - Current every day smoker PT SMOKES A PIPE - Diverticulitis Perforated Diverticulitis - Diverticulitis of sigmoid colon 05/15/2017 Added automatically from request for surgery [id number] - Hx of CABG - Pacemaker 02/16/2017 s/p PPM () 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 - Peritonitis ([facility]) PAST SURGICAL HISTORY Procedure Laterality Date - APPENDECTOMY HX - COLOSTOMY 07/2016 Diverting Loop Colostomy of the Transverse Colon - HEART SURGERY HX triple bypass 10 yrs ago - PPM IMPLANT - STENT - CORONARY FAMILY HISTORY Problem Relation Age of Onset - Coronary Artery Disease Father - Hyperlipidemia Father Social History Social History Main Topics - Smoking status: Current Every Day Smoker Packs/day: 0.50 Years: 35.00 Types: Pipe, Cigarettes - Smokeless tobacco: Never Used Comment: Quit cigarettes 11-16-16 now smoking 4 pipes as of 04-18-17 - Alcohol use No - Drug use: No - Sexual activity: Not Currently ALLERGIES Allergen Reactions - Altaseptic Unknown - Brilinta [Ticagrelo* Unknown - Crestor [Rosuvastat* Myalgia - Hctz [Amiloride-Hyd* Swelling - Moxifloxacin Swelling - Other [place]-3s Unknown brelinta - Ramipril Swelling Other reaction(s): Facial swelling - Simvastatin Myalgia Other reaction(s): Facial swelling - Voltaren [Diclofena* Unknown Review of Systems All other systems reviewed and are negative. Physical Exam BP 158/70 Pulse 61 Temp (Src) 98.4 (Oral) Resp 16 Ht 5' 8 (1.73m) Wt 193 lb (87.5kg) SpO2 97% BMI 29.35 kg/(m2). Physical Exam Constitutional: He appears well-developed and well-nourished. He appears distressed. Mild distress 2/2 pain HENT: Head: Normocephalic and atraumatic. Eyes: Right eye exhibits no discharge. Left eye exhibits no discharge. No scleral icterus. Neck: No tracheal deviation present. Cardiovascular: Normal rate, regular rhythm, normal heart sounds and intact distal pulses. Pulmonary/Chest: Effort normal and breath sounds normal. No respiratory distress. He has no wheezes. He has no rales. Abdominal: Soft. He exhibits no distension. There is tenderness. There is guarding. + prolapse R colostomy without gross evidence of ischemia/strangulation + diffuse abdominal TTP, with voluntary guarding, no rebound Musculoskeletal: He exhibits edema. Neurological: He is alert. Skin: Skin is warm and dry. No rash noted. He is not diaphoretic. Psychiatric: He has a normal mood and affect. Nursing note and vitals reviewed. Diagnostic Testing ED Labs Ordered and Reviewed CBC + DIFF - Abnormal; Notable for the following: Result Value Ref Range RDW-CV 15.9 (*) 11.5 - 15.0 % All other components within normal limits COMP METABOLIC PANEL - Abnormal; Notable for the following: Glucose 136 (*) 74 - 99 mg/dL All other components within normal limits NT PRO BNP - Abnormal; Notable for the following: NT Pro BNP 1,426 (*) <125 pg/mL All other components within normal limits CK TOTAL AND CK-MB - Abnormal; Notable for the following: CK 44 (*) 51 - 298 U/L All other components within normal limits LIPASE BLD - Abnormal; Notable for the following: Lipase 14 (*) 16 - 61 U/L All other components within normal limits TROPONIN T MAGNESIUM BLD LACTATE - ED (POC) ED BG VENOUS/LAB PANELS Procedures ED Course / Clinical Impression Course: Vital signs were reviewed. Triage records were reviewed. Medical records were reviewed. Nursing notes were reviewed and incorporated. Parenteral analgesics given Intravenous fluids were given. The following medications were administered: morphine, zofran, lasix Patient placed on monitor ECG reviewed and interpreted as Atrially paced rhythm at 64 bpm, occasional PVCs noted, QTc 443 ms, AK interval 218 ms, no ST elevation or depression Labs reviewed and interpreted as reviewed above Radiographs were reviewed IMPRESSION: ??No radiographic evidence of an acute abdominal process.. A consult was requested and obtained from [facility]sm consultant(s) Colorectal Surgery. The csm consultant made the following conclusions/recommendations: see MDM. Medical Decision Making: Intestinal prolapse: seen by LEATHA, successfully reduced; needs to f/u with Dr Yoo as outpatient to discuss reversal as the prolapse will likely continue to recur until reversal surgery occurs. Lactate neg for hypoperfusion/ischemia SOB: negative troponin for ACS, neg MB%, BNP 1.426; ECHO 04/02/17: CONCLUSIONS: - Technically difficult exam due to body habitus. - Exam indication: Chest Pain - The left ventricle is mildly dilated. There is mild left ventricular hypertrophy. Left ventricular systolic function is mildly decreased. EF = 50 ? 5% (visual est.) Definity contrast used for endocardial border detection. - The right ventricle is normal in size. Right ventricular systolic function is normal. - The patient has not had a prior CC echocardiographic exam for comparison. 08/05/17 NM cardiac perfusion stress/exercise: CONCLUSIONS: ?1. SPECT Perfusion Study: Abnormal. ?2. There is a moderate (10-20%) fixed perfusion defect in the LCX territory c/w prior infarction. ?3. There is no scintigraphic evidence for inducible ischemia. ?4. Left ventricle is mildly dilated. The left ventricle systolic function is mildly decreased. There is basal and mid inferior and inferior lateral hypokinesis in the LCx distribution. ?5. Right ventricle is normal in size. The right ventricle systolic function is normal. ?6. Functional capacity N/A (pharmacological). ?7. This is an intermediate risk scan. ?Gated Stress FBP ?LVEF % 43 Elevated BNP, HX and PE c/w volume overload given 40mg of IV lasix Plan: The patient was transferred to [place] for diuresis, trending of enzymes, accepted by Dr Ott Consent: A procedure or transfusion was performed - No Beata Rocha MD Clinical Impressions as of Nov 30 1215 Intestinal stoma prolapse (HCC) Acute on chronic congestive heart failure, unspecified heart failure type (HCC) MDM / Disposition / Plan MDM Please see above SIGNATURE: MD Beata Ramey MD 11/30/17 1217 ED NOTE Observed: 11/30/2017 Status: COMPLETED Source: [place] 8:28 AM [facility] [place] REPOSITORY HNO ID: [id number] Author: Kyara Cervantes (Rn) MITCHELL Nance Service: Emergency Medicine Author Type: Registered Nurse Type: ED Notes Filed: 11/30/2017 8:29 AM Note Text: Pt c/o pain at colostomy site and states its protruding more than usual since this am. Pt is having decreased output as well. CONSULT Observed: 11/30/2017 Status: COMPLETED Source: [place] 12:00 AM [facility] OTHER CAMPUS REPOSITORY HNO ID: [id number] Author: Britney Waters Service: General Surgery Author Type: Physician Type: Consults Filed: 12/01/2017 8:47 AM Note Text: [facility]- Consultation MAXX KNOTT : 1950 AGE: 67 SEX: M ACCTNUM: [id number] [facility] ARE[facility]: [facility], [facility] LOCATION: [address] ATTENDING PHYSICIAN: MANISH OTT DATE OF CONSULTATION: 11/30/2017 HISTORY: The patient is a 67-year-old gentleman with a history of transverse colostomy. This was placed in 06/2016 per the patient. He presented with diverticulitis at that time. This was unable to be resected. Therefore, a diverting colostomy was performed. He has been seeing Dr. Yoo at [facility] from Colorectal Surgery to discuss reversal. The patient presented to the ER at [facility] today with recurrent chest pain. They did not have beds available for observation and he was transferred to [facility]. While he was in the ER, it was noted that he had prolapse of his colostomy. I was consulted for evaluation of his colostomy here. The patient states that it is protruding again, but not nearly as bad as it was before. He continues to have stool and gas from the stoma. When it prolapses, he complains of significant pain, especially along the lateral aspect. He is currently doing well. PAST MEDICAL HISTORY: Coronary artery disease, perforated diverticulitis, COPD, and AAA. PAST SURGICAL HISTORY: Coronary stent and bypass, pacemaker placement, diverting colostomy of the transverse colon, and appendectomy. ALLERGIES: He has allergies to Altaseptic, Brilinta, Crestor, hydrochlorothiazide, moxifloxacin, ramipril, simvastatin, and Voltaren. MEDICATIONS: Prior to admission include Zofran, Percocet, vitamins, aspirin, Flexeril, Norvasc, Claritin, Pravachol, Neurontin, metoprolol, Seroquel, albuterol, Flonase, Cozaar, Lasix, nitroglycerin. FAMILY HISTORY: Significant for heart disease on his father's side in their 50s. REVIEW OF SYSTEMS: He denies fever. He has had a headache. He has shortness of breath and chest pain consistent with his admission. He has had some nausea, but no vomiting. He denies diarrhea or constipation. He denies dysuria, although did notice blood in his urine yesterday. He complains of numbness of his feet, which is new. PHYSICAL EXAM: General: On exam, he is a well-developed and well-nourished gentleman, in no apparent distress. Vital Signs: Temperature is 98.3, pulse 56, blood pressure is 169/62. He is 97% on room air. Head and Neck: Normal. There is no icterus. Lungs: Clear to auscultation without wheezes. Heart: Regular rate and rhythm without murmur. Abdomen: Bowel sounds present. He has stool and gas functioning from his right upper quadrant transverse colostomy. He has a mucous fistula in place. The stoma was easily reduced with some discomfort. No evidence for ischemia nor obstruction. Extremities: Show mild edema bilaterally. He has 2+ dorsalis pedis pulses. Neurologic: He is alert and oriented. LABORATORY: White count 8.2 and hemoglobin is 13. Electrolytes are normal. Abdominal x-ray shows no evidence for obstruction. IMPRESSION: A 67-year-old gentleman with diverting transverse colostomy, complicated by intermittent prolapse. The stoma is reducible at this time. There is no evidence for necrosis nor obstruction. I instructed the patient on trying to reduce the stoma if it does become prolapsed, including lying flat with his knees up and gentle pressure on the stoma. He is currently scheduled to see Colorectal Surgery for reversal in the near future at [facility]. Again, there is no evidence for an acute abdomen requiring urgent surgical intervention. Please call if needed during this hospital stay. Britney Waters M.D. General Surgery KED:[id number] EMERGENCY DEPARTMENT Observed: 11/28/2017 Status: F Source: [place] SUMMARY 11:34 PM [facility] REPOSITORY [facility] Medical Records Department [address] [place] [address] Emergency Department Summary 11/28/17 2304 MR#: [id number] Acct: [id number] Name: MAXX KNOTT Rep #: [id number] : 1950 67 From: Chele Smith MD PCP: [place] Status: DEP ER - ER Visit Summary Date of Service: 11/28/17 Chief Complaint: Herniated bowel into colostomy History of Present Illness: The patient is a 67 M prior colostomy secondary to diverticulitis. Also prior history of PA, CAD, triple bypass and cardiac stents. Patient states that tonight his bowel once again herniated into his colostomy bag. Before that he was feeling fine. He denies any vomiting. He denies any significant pain. This happens quite frequently. He is well-known to this emergency department for this particular complaint. He is supposed to have a revision of his colostomy but that is still pending. Physical Examination: Well-appearing male no acute distress. Vital signs stable. He does not look septic or toxic. No acute distress. H EENT exam unremarkable. Neck nontender. Lungs clear to auscultation. Heart regular rhythm. Abdomen soft. Nondistended normal bowel sounds. He has a colostomy bag in the right lower quadrant. He has bowel that is herniated into the bag. There is also stool and gas. There is no blood. He has minimal tenderness. There is no signs of bowel obstruction. He is moving all 4 extremities. Neurologically is awake and alert. Test Results: None Emergency Department Course and Treatment: Patient was lied supine. Given IM morphine. On repeat exams his bowel is now back into his abdominal cavity. He is feeling better and will be discharged to home. Treatment Plan: Follow-up with the [facility]. Disposition: Discharge Impression: Acute on chronic colostomy herniation resolved History of CAD with prior CABG and stents This note was generated with Atos[employer] dictation software. It may contain incorrect words, spelling, and punctuation that were not noted in review of the chart prior to signing ED Disposition - Plan for ED Patient: Chief Complaint: Shortness of Breath Referrals: [facility] [Primary Care Provider] - What to do if you have Problems For any increased pain, shortness of breath, bleeding, nausea or vomiting, chest pain, or any unexpected problems, contact your Primary Care Provider. Call [facility] ([phone]) or report to the closest Emergency Room. Call 911 if necessary. 11/28/17 5459 <Electronically signed by Chele Smith MD> Date Chele Smith MD Cosigner Signature (If Indicated): Date CC: [facility] DISCHARGE INSTRUCTION Observed: 11/28/2017 Status: F Source: [place] 11:34 PM [facility] RE[facility]ITORY [facility] Medical Records Department [address] [place] [address] Discharge Instruction 11/28/17 0882 MR#: [id number] Acct: [id number] Name: MAXX KNOTT Rep #: [id number] : 1950 67 From: Chele Smith MD PCP: [facility] Status: DEP ER ED Disposition - Plan for ED Patient: Disposition: Home or Assisted Living Chief Complaint: Shortness of Breath Referrals: [facility] [Primary Care Provider] - As Needed Additional Instructions: Follow-up with the [facility] for your colostomy revision. What to do if you have Problems For any increased pain, shortness of breath, bleeding, nausea or vomiting, chest pain, or any unexpected problems, contact your Primary Care Provider. Call [facility] ([phone]) or report to the closest Emergency Room. Call 911 if necessary. 11/28/17 5982 <Electronically signed by Chele Smith MD> Date Chele Smith MD Cosigner Signature (If Indicated): Date CC: [facility] DISCH.SUM Observed: 11/27/2017 Status: UNK Source: [facility] 5:41 PM [facility] Patient Name: MAXX KNOTT [facility] Date of : [address] [address] Unit Number: [id number] Discharge Summary Patient Status: DIS [place] Attending Doctor: Sarah Mauro MD Service Date: 11/27/17 174 Discharge Summary Admit Date Admission Date Time: 11/11/17 1600 Anticipated Discharge Date 11/13/17 Final Dx/Problem List 1. Atypical chest pain 2. YUSUF on CPAP 3. COPD (chronic obstructive pulmonary disease) 4. HLD (hyperlipidemia) 5. Colostomy in place 6. Colostomy prolapse Chief Complaint/HPI chest pain Reason for Admission 67-year-old male past medical history significant for hypertensive heart failure COPD coronary artery disease status post CABG, diverticulitis status post colostomy follows up with cardiology at the clinic clinic brought into the hospital for evaluation of chest pain. Cardiogenic consulted. Stress test showed EF of 32%. Discussed with by Abraham. No further recommendation. D-dimer is slightly elevated. Patient denies any pleuritic chest pain no hemoptysis. CT angios was ordered but patient refused to have IV access placed. Duplex of the lower extremities negative for DVT. He remained chest pain free. discharged home in stable condition after cleared by cardiology. Hospital Course uncomplicated Vital Signs Vital Signs (Last) Result Date Time Pulse Ox 97 11/13 1520 B/P 132/54 11/13 1500 Temp 98.1 11/13 1500 Pulse 71 11/13 1500 Resp 20 11/13 1500 FiO2 21 11/13 0847 O2 Delivery CPAP 11/12 2306 O2 Flow Rate RA 11/12 2300 Pertinent Physical Findings gen awake, alert, o x4 HEENT EOMI, PERRLA, atraumatic, normocephalic Neck supple, no JVP, thyromegaly RS CTAB, no wheezes, ronchi CVS S1,S2,RRR, no M/G GI abd soft, NT, ND+BS+colostomy drainaging ext +EDEMA, no cyanosis, clubbing Consults Cardiology Prescriptions Continue taking these medications: Losartan Potassium* (Cozaar Tab*) 100 MG TABLET 100 MILLIGRAM ORAL EVERY DAY Furosemide* (Lasix 40MG Tab*) 40 MG TABLET 40 MILLIGRAM ORAL EVERY DAY NEEDED as needed for SWELLING Multivitamin* (Multiple Vitamins Daily Tab*) 1 EACH TABLET 1 TABLET ORAL EVERY DAY Nitroglycerin* (Nitrostat 0.4MG Tab Sl*) 0.4 MG TAB.SUBL 0.4 MILLIGRAM SUBLINGUAL EVERY 5 MINUTES NEEDED as needed for CHEST PAIN Albuterol Sulfate (Proair Hfa Inhaler) 8.5 GM HFA.AER.AD 2 PUFFS INHALATION* EVERY 4 HOURS NEEDED as needed for SHORTNESS OF BREATH metoprolol SUCCINATE* (Toprol XL 50MG Tab SA*) 50 MG TAB.ER.24H 100 MILLIGRAM ORAL AT BEDTIME Aspirin* (Aspir 81 MG Tab*) 81 MG TABLET.DR 81 MILLIGRAM ORAL DAILY WITH A MEAL QUEtiapine FUMARATE* (Seroquel Tab*) 400 MG TABLET 400 MILLIGRAM ORAL AT BEDTIME amLODIPine BESYLATE* (Norvasc Tab*) 10 MG TABLET 10 MILLIGRAM ORAL EVERY DAY Gabapentin* (Neurontin 300MG Cap*) 300 MG CAPSULE 600 MILLIGRAM ORAL AT BEDTIME Loratadine* (Claritin 10MG Tab*) 10 MG TABLET 10 MILLIGRAM ORAL EVERY DAY NEEDED as needed for ALLERGIES Cyclobenzaprine HCl* (Flexeril 10MG Tab*) 10 MG TABLET 10 MILLIGRAM ORAL AT BEDTIME Pravastatin Sodium* (Pravachol 40MG Tab*) 40 MG TABLET 40 MILLIGRAM ORAL AT BEDTIME Vitamin B Complex (B Complex) 1 EACH CAPSULE 1 EACH ORAL EVERY DAY oxyCODONE HCL/ACETAMINOPHEN* (percoCET 5-325 TAB*) 1 EACH TABLET 1 UDTAB ORAL 3 TIMES DAILY NEEDED as needed for PAIN Albuterol Sulfate 0.083% 2.5MG/3ML Ud* (Albuterol Sulfate 0.083% 2.5MG/3ML Ud*) 2.5 MG/3 ML VIAL.NEB 2.5 MILLIGRAM INHALATION* EVERY 4 HOURS NEEDED as needed for SHORTNESS OF BREATH Referrals Ordered Referrals Cardiology Referral In One-Two W... For Groups: [facility] [address] [place] [address] Primary Care Provide In Two-Three... For Providers: Aisha Arias MD [address] [place] [id number] Condition: Stable Disposition Home Phys Discharge Time Incur(Min) 32 Disclaimer This dictation was created using voice recognition software. Phonetic and/or minor grammatical errors may exist. eSign Date and Time Sarah Mauro MD Verified/Reviewed by 11/29/17 0902 ED DOC Observed: 11/26/2017 Status: UNK Source: [facility] 5:24 PM [facility] REPOSITORY This is a preliminary report only, as the practitioner review and authentication has not occurred. ED DOC Observed: 11/26/2017 Status: UNK Source: [facility] 5:24 PM [facility] REPOSITORY PHYSICIAN ASSESSMENT RECORDS : Discharge Report Event Time: 11/26/2017 16:28 : FlexChartData Event Time: 11/26/2017 17:00 Status: Signed [facility] Maxx Knott [[id number]] Attending Physician Fatuma / Helen / 1950 Chart (V2b) Chart created at 11/26/2017 16:17 by Maxim Hendrix Chart closed at 11/26/2017 16:27 Entry in Emergency Department at 11/26/2017 14:51 Patient Name: Maxx Knott Record Number: [id number] Date: 11/26/2017 16:17 Entered Department at: 11/26/2017 14:51 Patient Seen at: 11/26/2017 15:48 Historian: Patient PCP: [facility] Chief Complaint:PROLAPSE OF COLOSTOMY - STATES HE WAS SEEN LAST WEEK FOR THE SAME. WAS REDUCED AND DISCHARGED. Triage Note reviewed and Initial Vital Signs reviewed. Temperature: 97.8 F (36.6 C). Pulse: 72. Respiratory Rate: 18. Blood-pressure: 146/68. Oxygen Saturation: 96%. History of Present Illness: 67-Year-old male presents with chief complaint of bowel prolapse from his colostomy. This is been a chronic/recurrent issue for this patient. States this happened about 1 hour prior to arrival to the emergency department. Patient is following with the [facility] PATIENT NAME: MAXX KNOTT [address] [place] MEDICAL REC #: [id number] [place] [address] EMERGENCY DEPARTMENT CHART EMERGENCY DEPARTMENT PHYSICIAN [facility] for this, is scheduled to have surgery to repair this next month. He is still having output of gas and stool, no nausea or vomiting, no fevers or chills, no bloody stools, no other complaints. Review of Systems. All other systems reviewed and negative.. Past History, Medications, Allergies, Social History and Family History reviewed in nurses note. Medications: Reviewed RN Note. Allergies: Reviewed RN Note Altace (Ramipril)(Get Sick), CRESTOR (Get Sick), Ramipril(Get Sick), Simvastatin(Nausea and Vomiting), ATORVASTATIN (Get Sick), MOXIFLOXACIN (Difficulty Breathing), VOLTAREN (Get Sick), HYDROCHLOROTHIAZIDE (Get Sick) Social History: Reviewed RN Note. Family History: Reviewed RN Note Physical Examination: General: Alert; Oriented x 3. NAD HEENT: Oropharynx / Throat: Moist mucous membranes. Respiratory: No Resp Distress and Normal Breath Sounds Cardio-Vascular: No murmur and RRR Abdomen: Normal Bowel Sounds and Soft; negative for Rebound or Guarding; Non-distended. Patient has a bowel prolapse noted within colostomy bag. There is brown stool output and gas within the bag. All tissue is pink/well-perfused. Back: Non-tender Extremity: No edema and Normal Equal pulses; Cap refill andlt; 2 sec. Neurological: Alert, Oriented X3 Skin: No rash, No Petechiae, Warm and Dry Medical Decision Making After evaluation of the patient, patient has bowel prolapse from his colostomy. Patient has been seen frequently for this, refuses to let anyone reduce the bowel before he receives opiate pain medication. He now has a care plan at this emergency department. Because of the above I did review his OAARS report. Patient has had 57 opiate prescriptions from 48 different [facility] PATIENT NAME: MAXX KNOTT [address] [place] MEDICAL REC #: [id number] [place] [address] EMERGENCY DEPARTMENT CHART EMERGENCY DEPARTMENT PHYSICIAN providers over the last 1 year. Patient has a very evident opiate addiction issue at this point. I suspect that patient is likely self prolapsing the bowel with Valsalva pressure. I was able to easily reduce the prolapse without any resistance. Patient was trying to frequently Valsalva throughout the process to maintain his prolapse, he ultimately stopped, bowel remained reduced and there is no further prolapse prior to discharge. I had an extensive discussion with the patient regarding his opiate prescriptions. Patient initially declined having any opiate prescriptions aside from what was received here in this emergency department. After extensive discussion he does agree with having an issue, I did offer him resources and assistance with opiate addiction but patient declined any of these things. Patient will continue to follow with [facility] regarding his colostomy. I did inform him he will need to see just 1 provider for opiate prescriptions going forward. Advised to return if he has any further complications with his colostomy. Additional Information: Old records reviewed (reviewed previous emergency department records, reviewed OARRS report). Discussed Diagnosis and Follow-Up with Patient. Clinical Impression: 1. Acute bowel prolapse from colostomy, manually reduced 2. Acute drug-seeking behavior Disposition: Discharged . MSE completed. I was the primary ED attending.. ===DISCHARGE REPORT=== : Discharge Report Event Time: 11/26/2017 16:28 Status: Draft Reasons to Return to the ER: [facility] PATIENT NAME: MAXX KNOTT [address] [place] MEDICAL REC #: [id number] [place] [address] EMERGENCY DEPARTMENT CHART EMERGENCY DEPARTMENT PHYSICIAN You must return to the ER for any new, worsening or changing symptoms, or if you feel more ill or sick in any way. This is the most important thing to remember. Follow-up: The care you received in the ER was given on an emergency basis only, and it is often not possible to completely treat or diagnose a problem in a single ER visit. You must see your follow-up doctor for a recheck within a week unless you receive instructions with a different timeframe for follow-up. Please follow all your discharge instructions. Medications: Unless the ER doctor tells you differently, you should take all your regular medications and any new medications prescribed today. Because it is not possible for the ER doctor to review all of your medication side effects or interactions, you must review possible side effects and interactions with your pharmacist when you get your prescriptions filled. EKG and Radiology Results: A straightening machine operator or radiologist will review any EKG or radiology results provided by the ER doctor. We will contact you if the results in the final EKG or radiology reports require a change in treatment. Culture Results: Cultures may have been ordered during your ER visit. We will contact you if the culture results require a change in treatment. Referrals: Most referrals to specialists come from the on-call list You should make your regular doctor aware of any referrals before you schedule the appointment so that they are aware and can make suggestions DIAGNOSIS: [facility] PATIENT NAME: MAXX KNOTT [address] [place] MEDICAL REC #: [id number] [place] [address] EMERGENCY DEPARTMENT CHART EMERGENCY DEPARTMENT PHYSICIAN Acute bowel prolapse from colostomy, manually reduced, Acute drug-seeking behavior INSTRUCTIONS: Continue following with [facility] as well as your primary care provider regarding your colostomy issues. It is important that you only follow with one provider regarding your chronic pain issues. Return to the emergency department immediately if you have any further complications with your colostomy. REFERRAL Your regular doctor(s) Please call the above number to schedule a follow-up appointment. 2-3 days MEDICATIONS At this time we have no recommendations that you stop taking any medications, or start taking any new ones. COMMENTS: Patient Satisfaction: Within the first few days after your visit, you will receive an email and/or phone call regarding your visit. We value your feedback, and would appreciate it if you would take the time to complete this short survey. If you receive a call, it will be between 6p and 8p. My signature below indicates that I have received and understand the oral instructions regarding my medical problem. I also acknowledge receipt of this written instruction sheet including a list of major tests and procedures ordered during my visit. I will arrange for follow-up care as indicated by these instructions and referrals. [facility] PATIENT NAME: MAXX KNOTT [address] [place] MEDICAL REC #: [id number] [place] [address] EMERGENCY DEPARTMENT CHART EMERGENCY DEPARTMENT PHYSICIAN This signed original will be kept in my medical record. Your signature below indicates consent for Case Management to contact [facility] in an effort to meet your ongoing healthcare needs. This will allow forcontinuity of care once you leave the Emergency Department. This exchange of informationwill include, but not be limited to, disclosure of your patient information and possible release of records. 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 WAS REDUCED AND DISCHARGED. Arrival Date: 11/26/2017 14:51 Triage Date: 11/26/2017 15:10 Mode of Arrival: *Privately Owned Vehicle Transfer From: * Home WC: N Language: [place] Citizen Transport: Ambulatory/Walk In [facility] PATIENT NAME: MAXX KNOTT [address] [place] MEDICAL REC #: [id number] [place] [address] EMERGENCY DEPARTMENT CHART EMERGENCY DEPARTMENT PHYSICIAN BED A11 In: 11/26/2017 15:13:43 11/26/2017 15:13:43 VDP A11 (Removed From) Out: 11/26/2017 17:05:34 11/26/2017 17:05:34 MCS AHALL12 In: 11/26/2017 17:05:34 11/26/2017 17:05:34 MCS AHALL12 (Removed From) Out: 11/26/2017 17:24:16 11/26/2017 17:24:16 MCS PROVIDERS DO Maxim Hendrix Provider Contact: 11/26/2017 15:48:40 EDS End: MITCHELL DAVIS Provider Contact: 11/26/2017 16:15:02 MCS End: TRIAGE HISTORY ALLERGIES Allergic To: CRESTOR - Get Sick 11/26/2017 15:12 VDP Allergic To: Ramipril - Get Sick 11/26/2017 15:12 VDP Allergic To: Simvastatin - Nausea and Vomiting 11/26/2017 15:12 VDP Allergic To: ATORVASTATIN - Get Sick 11/26/2017 15:12 VDP Allergic To: MOXIFLOXACIN - Difficulty Breathing 11/26/2017 15:12 VDP Allergic To: VOLTAREN - Get Sick 11/26/2017 15:12 VDP [facility] PATIENT NAME: MAXX KNOTT [address] [place] MEDICAL REC #: [id number] [place] [address] EMERGENCY DEPARTMENT CHART EMERGENCY DEPARTMENT PHYSICIAN Allergic To: HYDROCHLOROTHIAZIDE - Get Sick 11/26/2017 15:12 VDP CURRENT MEDS Name: Unable to Obtain Information 11/26/2017 16:35 MCS ILLNESS Illness: CHF 11/26/2017 15:12 VDP Illness: COPD 11/26/2017 15:12 VDP Illness: Angina/CAD 11/26/2017 15:12 VDP Illness: Hypertension 11/26/2017 15:12 VDP Illness: Sleep Apnea 11/26/2017 15:12 VDP Illness: High Cholestrol 11/26/2017 15:12 VDP Illness: Diverticulitis 11/26/2017 15:12 VDP PAST SURGERY HIST Surgery: Cardiac Bypass 11/26/2017 15:12 VDP Surgery: Appendectomy 11/26/2017 15:12 VDP Surgery: COLOSTOMY 11/26/2017 15:12 VDP Surgery: triple heart bypass 11/26/2017 15:12 VDP PAST SOCIAL HIST Social History: Communicates without difficulty 11/26/2017 15:12 VDP Social History: Lives with family or significant other 11/26/2017 15:12 VDP Social History: Alcohol - None 11/26/2017 15:12 VDP Social History: Recreational Drugs - None 11/26/2017 15:12 VDP Social History: Smoker-1/2-3/4 PPD 11/26/2017 15:12 VDP Social History: Denies Domestic Violence 11/26/2017 [facility] PATIENT NAME: MAXX KNOTT [address] [place] MEDICAL REC #: [id number] [place] [address] EMERGENCY DEPARTMENT CHART EMERGENCY DEPARTMENT PHYSICIAN 15:12 VDP Social History: Denies thoughts of self harm. 11/26/2017 15:12 VDP Social History: Have you traveled in the past month? Where no 11/26/2017 15:12 VDP SELF TREATMENT Aid: *No Treatment Prior to Arrival 11/26/2017 16:35 MCS NURSING ASSESSMENT ASSESSMENT NOTES 11/26/2017 16:00 see triage note. msps intact . c/o rectal area discomfort which started 2 wks prior. states known hx of prolapse rectum, which was reduced 1 wk prior. denies any change or difficulty in bm patterns. skin warm pink n dry cap refill andlt; 2secs. 11/26/2017 16:37 MCS 11/26/2017 17:05 pt upset with due to not receving narcoticis for discomfort . pt stating he dosnt need discharge papers left prior to receiving. 11/26/2017 17:21 MCS TREATMENT 11/26/2017 16:00 Patient Interaction - Allergy Band on Pt. 11/26/2017 17:24 MCS 11/26/2017 16:00 Patient Interaction - Name Band on Pt 11/26/2017 17:24 MCS 11/26/2017 16:00 Staff/ Patient Interaction - Introduced self and assessed patients needs. 11/26/2017 17:24 MCS 11/26/2017 16:00 Staff/ Patient Interaction - Side rails up X2 and call light placed within reach. 11/26/2017 17:24 MCS [facility] PATIENT NAME: MAXX KNOTT [address] [place] MEDICAL REC #: [id number] [place] [address] EMERGENCY DEPARTMENT CHART EMERGENCY DEPARTMENT PHYSICIAN 11/26/2017 16:00 Staff/ Patient Interaction - Call light placed within reach. 11/26/2017 17:24 [facility] 11/26/2017 16:25 Primary DOC Guide - A. 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 Fall Risk Assessment (Age andlt;65) 11/26/2017 17:24 [facility] History of Falling in last 3 months? No (0) Altered Elimination? No (0) Fall Risk Score 1-2 Points = Low Risk. 3-4 Points = Moderate Risk. 5 or more points = High Risk. 0 Fall Score Greater andgt;= 3? No 11/26/2017 17:23 Primary DOC Guide - C. Geriatric (65+) Fall Risk Assessment 11/26/2017 17:24 MCS Was patient provided a Fall Prevention Packet? No STEADI Score Total 0 STEADI Fall Assessment Score of 4 or greater? No Any falls in the last year? No (0) Fall Assessment Note: (Please note if patient is from [facility]) 0 Feel lightheaded or tired after taking medication? No (0) Take medications to help sleep or improve mood? No (0) 11/26/2017 17:23 Primary DOC Guide - D. Psychosocial Assessment 11/26/2017 17:24 MCS Over the Last 2 weeks, how often have you had little interest or pleasure in doing things (0) Not at All Is Psychosocial Assessment Score 3 or more? If score is 3 or more please consult ED Navigator! No Total Psychosocial Assessment Score 0 Over the last 2 weeks, how often have you been feeling [facility] PATIENT NAME: MAXX KNOTT Shekhar [address] [place] MEDICAL REC #: [id number] [place] [address] EMERGENCY DEPARTMENT CHART EMERGENCY DEPARTMENT PHYSICIAN down, depressed or hopeless (0) Not at All MEDICATIONS IV I AND O VITALS VS-ROUTINE Time: 11/26/2017 15:10 B/P: 146/68 - Right Upper Arm - Sitting - Pulse: 72 - Monitor Resp: 18 Sa02: 96 Room Air Temp: 97.80 F - Oral 11/26/2017 15:12 VDP VS-Pain Time: 11/26/2017 15:10 Pain Level: 9 11/26/2017 15:12 VDP VS-GCS Time: 11/26/2017 15:10 Visual: 4 Verbal: 5 Motor: 6 GCS Total: 15 11/26/2017 15:12 VDP VS-HT/WT Time: 11/26/2017 15:10 Ht: 68 in. Stated Weight: 193 lbs Stated 11/26/2017 15:12 VDP VS-Visual Time: 11/26/2017 15:10 11/26/2017 15:12 VDP VS-FHT Time: 11/26/2017 15:10 11/26/2017 15:12 VDP VS-Notes Time: 11/26/2017 15:10 MAP 98 11/26/2017 15:12 VDP VS-ROUTINE Time: 11/26/2017 16:42 B/P: 132/68 - Left Upper Arm - Sitting - Machine Pulse: 74 - Cloth Framer Resp: 16 Sa02: 97 Room Air 11/26/2017 17:21 MCS VS-Pain Time: 11/26/2017 16:42 Pain Level: 0 11/26/2017 17:21 MCS VS-GCS Time: 11/26/2017 16:42 Visual: 4 Verbal: 5 Motor: 6 GCS Total: 15 11/26/2017 17:21 MCS VS-HT/WT Time: 11/26/2017 16:42 11/26/2017 17:21 MCS VS-Visual Time: 11/26/2017 16:42 11/26/2017 17:21 MCS VS-FHT Time: 11/26/2017 16:42 11/26/2017 17:21 MCS VS-Notes Time: 11/26/2017 16:42 map 89 11/26/2017 17:21 MCS [facility] PATIENT NAME: MAXX KNOTT [address] [place] MEDICAL REC #: [id number] [place] [address] EMERGENCY DEPARTMENT CHART EMERGENCY DEPARTMENT PHYSICIAN ORDERS Discharge patient 11/26/2017 16:30 N/A Ordered: 11/26/2017 16:28 By . Other Reviewed: 11/26/2017 16:30 By . Other DISCHARGE Diagnosis: Acute bowel prolapse from colostomy, manually reduced, Acute drug-seeking behavior 11/26/2017 16:29 Disposition: Time: 11/26/2017 16:28 Discharge Time: 11/26/2017 17:24 Type: Discharge Condition: Stable for admission/discharge/transfer after emergency evaluation/treatment Category: *NOT APPLICABLE Referral: 11/26/2017 16:29 Admit Physician: . Other PRESCRIPTIONS CHARGES SIGNATURE CADEN Hendrix DO TATY DAVIS RN MCS [facility] PATIENT NAME: MAXX KNOTT [address] [place] MEDICAL REC #: [id number] [place] [address] EMERGENCY DEPARTMENT CHART EMERGENCY DEPARTMENT PHYSICIAN DISCHARGE INSTRUCTION Observed: 11/23/2017 Status: F Source: [place] 11:17 AM [facility] REPOSITORY [facility] Medical Records Department [address] [place] [address] Discharge Instruction 11/23/17 1116 MR#: [id number] Acct: [id number] Name: MAXX KNOTT Rep #: [id number] : 1950 67 From: Naomie Koenig PCP: [place], [place] Status: REG ER ED Disposition - Plan for ED Patient: Chief Complaint: Other, Pain/Inj Instructions: What Is a Hernia? Referrals: Yusef Morales [Other] - 2 Days What to do if you have Problems For any increased pain, shortness of breath, bleeding, nausea or vomiting, chest pain, or any unexpected problems, contact your Primary Care Provider. Call [facility] ([phone]) or report to the closest Emergency Room. Call 911 if necessary. 11/23/17 1117 <Electronically signed by Naomie Koenig > Date Naomie Koenig Cosigner Signature (If Indicated): Date CC: [facility] EMERGENCY DEPARTMENT Observed: 11/23/2017 Status: F Source: [place] SUMMARY 11:16 AM [facility] Medical Records Department [address] [place] [address] Emergency Department Summary 11/23/17 1012 MR#: [id number] Acct: [id number] Name: MAXX KNOTT Shekhar Rep #: [id number] : 1950 67 From: Naomie Koenig PCP: [place], [place] Status: REG ER - ER Visit Summary Date of Service: 11/23/17 Chief Complaint: [Stoma herniation] History of Present Illness: The patient is a 67 M [who presents the emergency department with pain and herniation around his ostomy. He states he bent down and his bowel came out through his stoma. This is happened several times in the past. He gets pain medicine is reduced. He was told he has to follow-up in [place] to get a reversal. He has followed up with his surgeon about this and they told him the only way to fix it would be to put it in a different place and that he would rather get the reversal but he has not done this yet. He is very nauseated but no vomiting. There has been output nonbloody from the stoma. His surgeon is a Dr. Holbrook in [facility]. Ostomy was placed for ruptured diverticulitis. This occurred approximately a year and half ago.] Physical Examination: [] Blood pressure 197/88 heart rate 88 vitals within normal limits WN WD NAD PERRL EOMI MMM NECK supple and nontender, no masses RRR no murmur rub or gallop, no peripheral edema, symmetric radial pulses CTAB no respiratory distress ABDOMEN is soft there are multiple scars, patient has large herniation at the ostomy it is pink with good cap refill. He is exquisitely tender. There is no surrounding erythema there is brown stool in the ostomy bag normal bowel sounds, no distension, no rebound or guarding SKIN is warm and dry no rashes Alert and Oriented x3, CN II-XII in tact, no motor or sensory deficits, gait normal No lymphadenopathy Test Results: [] Emergency Department Course and Treatment: [Patient was given Dilaudid and Zofran. Ice pack was applied. Hernia was easily reduced with gentle pressure. Ostomy will bring was intact and mucosa was pink. Abdominal binder was placed and patient was advised to follow-up with Dr. Holbrook as soon as possible] Treatment Plan: [] Disposition: [Discharge] Impression: [Herniation of ostomy with ER reduction] This note was generated with [employer]os[employer] dictation software. It may contain incorrect words, spelling, and punctuation that were not noted in review of the chart prior to signing ED Disposition - Plan for ED Patient: Chief Complaint: Other, Pain/Inj Referrals: [place] [Primary Care Provider] - What to do if you have Problems For any increased pain, shortness of breath, bleeding, nausea or vomiting, chest pain, or any unexpected problems, contact your Primary Care Provider. Call [facility] ([phone]) or report to the closest Emergency Room. Call 911 if necessary. 11/23/17 1116 <Electronically signed by Naomie Koenig > Date Naomie Koenig Cosigner Signature (If Indicated): Date CC: [facility] PROGRESS Observed: 11/23/2017 Status: COMPLETED Source: [place] 8:56 AM [facility] REPOSITORY HNO ID: [id number] Author: Eligio (Rn) MITCHELL Banks Service: (none) Author Type: Registered Nurse Type: Progress Notes Filed: 11/23/2017 8:59 AM Note Text: Unable to reach patient at this time, left VM to return call to the office. Eligio Banks RN CNPTOUTREACH Observed: 11/23/2017 Status: COMPLETED Source: [place] 12:00 AM [facility] REPOSITORY Patient Outreach (INTMMN) MAXX KNOTT ([id number]) 1950 M Date Time Provider Department 11/23/17 ELIGIO BANKS (RN) INTMMN During your visit today, we recorded the following information about you: Eligio Banks RN, RN 11/23/2017 8:59 AM Signed Unable to reach patient at this time, left VM to return call to the office. Eligio Banks RN Allergies As of Date: 11/23/2017 Noted Allergy Reaction ALTASEPTIC 12/17/2016 16 - Unknown BRILINTA (TICAGRELOR) 08/09/2017 16 - Unknown CRESTOR (ROSUVASTATIN CALCIUM) 12/17/2016 17 - Myalgia HCTZ (AMILORIDE-HYDROCHLOROTHIAZI*12/17/2016 7 - Swelling MOXIFLOXACIN 7 - Swelling OTHER OMEGA-3S 07/06/2017 16 - Unknown Comments: brelinta RAMIPRIL 12/17/2016 7 - Swelling Comments: Other reaction(s): Facial swelling SIMVASTATIN 12/17/2016 17 - Myalgia Comments: Other reaction(s): Facial swelling VOLTAREN (DICLOFENAC SODIUM) 12/17/2016 16 - Unknown Date Reviewed: 11/19/2017 Reviewed by: Mary Toth) MITCHELL Zaidi - Fully Assessed Reason for Visit: Field Specialist Ed Follow Up [3619] Prescriptions as of 11/23/2017 Sig: ONDANSETRON HCL 4 MG TABLET Take 4 mg by mouth every 6 ho* X TAMSULOSIN 0.4 MG CAPSULE Take 0.4 mg by mouth once roddy* X OXYCODONE-ACETAMINOPHEN 10 MG* Take 1 tablet by mouth every * B COMPLEX ORAL Take 1 tablet by mouth once d* ASPIRIN 81 MG TABLET,DELAYED * Take 81 mg by mouth once dominik* CYCLOBENZAPRINE 10 MG TABLET Take 1 tablet by mouth at bed* AMLODIPINE 10 MG TABLET Take 10 mg by mouth once dominik* LORATADINE 10 MG CAPSULE Take 1 capsule every day by o* PRAVASTATIN 40 MG TABLET Take 40 mg by mouth daily at * GABAPENTIN 300 MG CAPSULE Take 2 capsules by mouth dominik* METOPROLOL SUCCINATE ER 100 M* Take 1 tablet by mouth once d* QUETIAPINE 200 MG TABLET Take 2 tablets by mouth daily* COMPOUNDED PRESCRIPTION One Piece Ostomy Pouch Item T* COMPOUNDED PRESCRIPTION Paste: Convatec Stomahesive * MULTIVITAMIN AND MINERALS ORAL Take 1 capsule by mouth once * ALBUTEROL SULFATE HFA 90 MCG/* Inhale 2 Puffs as instructed * FLUTICASONE 50 MCG/ACTUATION * Use 1 [place] in the nose once * NITROGLYCERIN 0.4 [address]U* PLACE ONE(1) TABLET UNDER TON* LOSARTAN 100 MG TABLET Take 100 mg by mouth once roddy* FUROSEMIDE 20 MG TABLET Take 40 mg by mouth once dominik* Problem List As Of Date 11/23/2017 Noted Resolved 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 Chest pain [R07.9] INVALID FOR* Priority: A More... Hypertensive crisis [I16.9] INVALID FOR* Priority: B More... Healthcare maintenance [Z00.00] INVALID FOR* Priority: M More... Malnutrition of mild degree (HCC) [E44.1] INVALID FOR* Priority: L More... CHF (congestive heart failure) (HCC) [I50.9] INVALID FOR* Diverticulitis of sigmoid colon [K57.32] INVALID FOR* Class: Recurrent More... Chronic systolic congestive heart failure (HCC)*INVALID FOR* Priority: J More... CAD (coronary artery disease) [I25.10] INVALID FOR* Priority: K More... Hypertensive heart disease with congestive hear*INVALID FOR* Priority: K Hypocalcemia [E83.51] INVALID FOR*06/19/2017 Hypernatremia [E87.0] INVALID FOR*06/19/2017 Hypokalemia [E87.6] INVALID FOR*06/19/2017 Parastomal hernia without obstruction or gangre*INVALID FOR* Abdominal aortic aneurysm without rupture (HCC)*INVALID FOR* Renal cysts, acquired, bilateral [N28.1] INVALID FOR* Arthritis [M19.90] INVALID FOR* Anxiety disorder [F41.9] INVALID FOR* Essential hypertension [I10] INVALID FOR* Nicotine use disorder, F17.2 [F17.200] INVALID FOR* Melena [K92.1] INVALID FOR* Fall [W19.XXXA] INVALID FOR* Abdominal pain [R10.9] INVALID FOR* Peristomal hernia [K46.9] INVALID FOR* Prolapse of intestine [K63.4] INVALID FOR* Chronic narcotic use [F11.90] INVALID FOR* Encounter Status:Closed by ELIGIO BANKS on 12/05/17 ED DOC Observed: 11/22/2017 Status: UNK Source: [place] 3:35 PM [facility] REPOSITORY This is a preliminary report only, as the practitioner review and authentication has not occurred. ED DOC Observed: 11/22/2017 Status: UNK Source: [facility] 3:35 PM [facility] REPOSITORY PHYSICIAN ASSESSMENT RECORDS : Discharge Report Event Time: 11/22/2017 15:08 : FlexChartData Event Time: 11/22/2017 15:40 Status: Signed [facility] Maxx Knott [[id number]] Attending Physician 67 / M / 1950 Chart (V2b) Chart created at 11/22/2017 15:03 by Lee Samuels Chart closed at 11/22/2017 15:07 Entry in Emergency Department at 11/22/2017 13:07, departure at 11/22/2017 15:35 Patient Name: Maxx Knott Record Number: [id number] Date: 11/22/2017 15:03 Entered Department at: 11/22/2017 13:07 Patient Seen at: 11/22/2017 13:43 Historian: Patient PCP: [facility] - PCP / DR PARDO - SURGEON Chief Complaint:PATIENT REPORTS PROLAPSE OF COLOSTOMY APPROX ONE HOUR AGO. Temperature: 98.2 F (36.8 C). Pulse: 100. Respiratory Rate: 15. Blood-pressure: 194/81. Oxygen Saturation: 97%. History of Present Illness: 67-Year-old male comes in for evaluation of prolapse of his colostomy. This is been a long-standing problem for him. He apparently has been referred to the [facility] for operative repair, but states he cannot have a procedure done for another month. He states that he has been having problems with a stoma prolapsing further and further. Is still functioning [facility] PATIENT NAME: MAXX KNOTT Shekhar [address] MEDICAL REC #: [id number] [place] [address] EMERGENCY DEPARTMENT CHART EMERGENCY DEPARTMENT PHYSICIAN and is producing stool. It just becomes more and more uncomfortable at times. He has been seen in the emergency room a couple of times recently in fact once by myself for this same prolapse. Each time we can reduce the prolapse, but it keeps recurring. He denies fevers or chills. Review of Systems. All other systems reviewed and negative.. Past History, Medications, Allergies, Social History and Family History reviewed in nurses note. Medications: Reviewed RN Note. no list provided. 11/22/17 Allergies: Reviewed RN Note Altace (Ramipril)(Get Sick), CRESTOR (Get Sick), Ramipril(Get Sick), Simvastatin(Nausea and Vomiting), ATORVASTATIN (Get Sick), MOXIFLOXACIN (Difficulty Breathing), VOLTAREN (Get Sick), HYDROCHLOROTHIAZIDE (Get Sick) Social History: Reviewed RN Note. Family History: Reviewed RN Note Physical Examination: General: Alert and Well Developed HEENT: Normal ENT inspection. Neck: Supple Respiratory: No Resp Distress Cardio-Vascular: RRR Abdomen: Soft; He has a large amount of: Prolapsed through his right lower quadrant colostomy. The opening is large. I was able to reduce the hernia manually, however it prolapsed again immediately. The colonic mucosa itself is pink in appearance without signs of duskiness or ischemia. It is still functional producing stool and gas in the bag. Back: No Midline Tenderness and Non-tender Extremity: No Calf Tenderness and No edema Neurological: Alert, Oriented X3 and No Gross Weakness Skin: Dry Psychological: Mood/Affect Normal and Normal Memory/Judgment Medical Decision Making The patient does not require emergent repair. His prolapse [facility] PATIENT NAME: MAXX KNOTT [address] [place] MEDICAL REC #: [id number] [place] [id number] EMERGENCY DEPARTMENT CHART EMERGENCY DEPARTMENT PHYSICIAN is reducible but recurrent. It is not showing signs of incarceration or ischemia at this time. His pain is improved after being medicated. And he can be discharged home, but I do recommend that he speak with his family physician, and see if they can get his surgical evaluation/repair pushed forward. Additional Information: Discussed Results, Diagnosis and Follow-Up with Patient. Clinical Impression: 1. Recurrent prolapse of colon through colostomy without signs of incarceration/strangulation or obstruction. Disposition: Discharged *Home. Condition: Stable MSE completed. I was the primary ED attending.. ===DISCHARGE REPORT=== : Discharge Report Event Time: 11/22/2017 15:08 Status: Draft Reasons to Return to the ER: You must return to the ER for any new, worsening or changing symptoms, or if you feel more ill or sick in any way. This is the most important thing to remember. Follow-up: The care you received in the ER was given on an emergency basis only, and it is often not possible to completely treat or diagnose a problem in a single ER visit. You must see your follow-up doctor for a recheck within a week unless you receive instructions with a different timeframe for follow-up. Please follow all your discharge instructions. Medications: [facility] PATIENT NAME: MAXX KNOTT [address] MEDICAL REC #: [id number] [place] [address] EMERGENCY DEPARTMENT CHART EMERGENCY DEPARTMENT PHYSICIAN Unless the ER doctor tells you differently, you should take all your regular medications and any new medications prescribed today. Because it is not possible for the ER doctor to review all of your medication side effects or interactions, you must review possible side effects and interactions with your pharmacist when you get your prescriptions filled. EKG and Radiology Results: A straightening machine operator or radiologist will review any EKG or radiology results provided by the ER doctor. We will contact you if the results in the final EKG or radiology reports require a change in treatment. Culture Results: Cultures may have been ordered during your ER visit. We will contact you if the culture results require a change in treatment. Referrals: Most referrals to specialists come from the on-call list You should make your regular doctor aware of any referrals before you schedule the appointment so that they are aware and can make suggestions DIAGNOSIS: Recurrent prolapse of colon through colostomy without signs of incarceration/strangulation or obstruction. INSTRUCTIONS: Follow-up with your family doctor and ask them to help with moving your surgical evaluation closer. Return to the emergency room if you are unable to push the stoma back in, or if the stoma starts to look dark in color or purpleish, instead of pink. Return if stool or gas no longer come out through the colostomy. MEDICATIONS [facility] PATIENT NAME: MAXX KNOTT [address] [place] MEDICAL REC #: [id number] [place] [address] EMERGENCY DEPARTMENT CHART EMERGENCY DEPARTMENT PHYSICIAN We have given you these prescriptions that you must fill and start taking: [place] 5 mg-325 mg tablet, count:8, Dose = 1, count:8, 2 days, count:8,every 6 hours, count:8, Number of Refills = 0, count:8 COMMENTS: Patient Satisfaction: Within the first few days after your visit, you will receive an email and/or phone call regarding your visit. We value your feedback, and would appreciate it if you would take the time to complete this short survey. If you receive a call, it will be between 6p and 8p. My signature below indicates that I have received and understand the oral instructions regarding my medical problem. I also acknowledge receipt of this written instruction sheet including a list of major tests and procedures ordered during my visit. I will arrange for follow-up care as indicated by these instructions and referrals. This signed original will be kept in my medical record. Your signature below indicates consent for Case Management to contact [facility] in an effort to meet your ongoing healthcare needs. This will allow forcontinuity of care once you leave the Emergency Department. This exchange of informationwill include, but not be limited to, disclosure of your patient information and possible release of records. 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 [place] MEDICAL REC #: [id number] [place] [address] EMERGENCY DEPARTMENT CHART EMERGENCY DEPARTMENT PHYSICIAN Address: [address] [place] [address] [address] Address: [place] [address] REGISTRATION ED Number: [id number] Marital Status: D Financial Class: FEDP TRIAGE Priority: 3 - Urgent Complaint: Abdominal Pain Stated Complaint: PATIENT REPORTS PROLAPSE OF COLOSTOMY APPROX ONE HOUR AGO. Arrival Date: 11/22/2017 13:07 Triage Date: 11/22/2017 13:27 Mode of Arrival: *Privately Owned Vehicle Transfer From: * Home WC: N Language: [place] Citizen Transport: Ambulatory/Walk In BED D44 In: 11/22/2017 13:30:53 11/22/2017 13:30:53 VDP D44 (Removed From) Out: 11/22/2017 13:33:12 11/22/2017 13:33:12 VDP D43 In: 11/22/2017 13:33:12 11/22/2017 13:33:12 VDP D43 (Removed From) Out: 11/22/2017 15:35:45 11/22/2017 15:35:45 BSF PROVIDERS MD Lee Samuels Provider Contact: 11/22/2017 13:42:12 SANDRA End: [facility] PATIENT NAME: MAXX KNOTT [address] [place] MEDICAL REC #: [id number] [place] [address] EMERGENCY DEPARTMENT CHART EMERGENCY DEPARTMENT PHYSICIAN MITCHELL JACKSON Provider Contact: 11/22/2017 14:05:01 BSF End: TRIAGE HISTORY ALLERGIES Allergic To: CRESTOR - Get Sick 11/22/2017 13:29 VDP Allergic To: Ramipril - Get Sick 11/22/2017 13:30 VDP Allergic To: Simvastatin - Nausea and Vomiting 11/22/2017 13:30 VDP Allergic To: ATORVASTATIN - Get Sick 11/22/2017 13:30 VDP Allergic To: MOXIFLOXACIN - Difficulty Breathing 11/22/2017 13:30 VDP Allergic To: VOLTAREN - Get Sick 11/22/2017 13:30 VDP Allergic To: HYDROCHLOROTHIAZIDE - Get Sick 11/22/2017 13:30 VDP CURRENT MEDS Name: no list provided. 11/22/17 11/22/2017 14:21 BSF ILLNESS Illness: CHF 11/22/2017 13:29 VDP Illness: COPD 11/22/2017 13:29 VDP Illness: Angina/CAD 11/22/2017 13:29 VDP Illness: Hypertension 11/22/2017 13:29 VDP Illness: Sleep Apnea 11/22/2017 13:29 VDP Illness: High Cholestrol 11/22/2017 13:29 VDP Illness: Diverticulitis 11/22/2017 13:29 VDP [facility] PATIENT NAME: MAXX KNOTT [address] [place] MEDICAL REC #: [id number] [place] [address] EMERGENCY DEPARTMENT CHART EMERGENCY DEPARTMENT PHYSICIAN PAST SURGERY HIST Surgery: Cardiac Bypass 11/22/2017 13:29 VDP Surgery: Appendectomy 11/22/2017 13:29 VDP Surgery: COLOSTOMY 11/22/2017 13:29 VDP Surgery: triple heart bypass 11/22/2017 13:29 VDP PAST SOCIAL HIST Social History: Communicates without difficulty 11/22/2017 13:29 VDP Social History: Lives with family or significant other 11/22/2017 13:29 VDP Social History: Alcohol - None 11/22/2017 13:29 VDP Social History: Recreational Drugs - None 11/22/2017 13:29 VDP Social History: Smoker-1/2-3/4 PPD 11/22/2017 13:29 VDP Social History: Denies Domestic Violence 11/22/2017 13:29 VDP Social History: Denies thoughts of self harm. 11/22/2017 13:29 VDP Social History: Have you traveled in the past month? Where no 11/22/2017 13:29 VDP SELF TREATMENT Aid: *No Treatment Prior to Arrival 11/22/2017 13:29 VDP NURSING ASSESSMENT ASSESSMENT NOTES 11/22/2017 14:19 pt Aandamp;OX 3 pt skin warm, dry and pink. pt states that he has a colostomy and his bowel is [facility] PATIENT NAME: MAXX KNOTT [address] [place] MEDICAL REC #: [id number] [place] [address] EMERGENCY DEPARTMENT CHART EMERGENCY DEPARTMENT PHYSICIAN prolapsed through. pt states that tis has happened before. pt states that this happened today. bowel is contained. tender upon palpation of the site 11/22/2017 14:20 BSF TREATMENT 11/22/2017 14:06 Hourly Rounding - Rounding 11/22/2017 14:07 BSF Elimination/Toileting N Pain 8 Position Comfortable Y Safe Environment Y Fall Risk Change N 11/22/2017 14:06 Patient Interaction - Allergy Band on Pt. 11/22/2017 14:07 BSF 11/22/2017 14:06 Patient Interaction - Call light placed within reach. 11/22/2017 14:07 BSF 11/22/2017 14:07 Patient Interaction - Introduce self to Patient. 11/22/2017 14:07 BSF 11/22/2017 14:07 Patient Interaction - Name Band on Pt 11/22/2017 14:07 BSF 11/22/2017 14:07 Primary DOC Guide - A. 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 Fall Risk Assessment (Age andlt;65) 11/22/2017 14:07 BSF History of Falling in last 3 months? No (0) Confusion or Disorientation? No (0) Intoxicated or Sedated? No (0) [facility] PATIENT NAME: MAXX KNOTT [address] [place] MEDICAL REC #: [id number] [place] [address] EMERGENCY DEPARTMENT CHART EMERGENCY DEPARTMENT PHYSICIAN Impaired Gait? No (0) Mobility Assist Device Used? No (0) Altered Elimination? No (0) Fall Risk Score 1-2 Points = Low Risk. 3-4 Points = Moderate Risk. 5 or more points = High Risk. 0 Fall Score Greater andgt;= 3? No 11/22/2017 14:07 Primary DOC Guide - D. Psychosocial Assessment 11/22/2017 14:07 BSF Over the Last 2 weeks, how often have you had little interest or pleasure in doing things (0) Not at All Is Psychosocial Assessment Score 3 or more? If score is 3 or more please consult ED Navigator! No Total Psychosocial Assessment Score 0 Over the last 2 weeks, how often have you been feeling down, depressed or hopeless (0) Not at All 11/22/2017 14:07 Primary DOC Guide - E. Family Violence Assessment 11/22/2017 14:07 BSF Within the past year, has anyone ever pushed, shoved, slapped, choked, hit, punched or kicked you: No Within the past year, has anyone ever pressured or forced you to have sexual activities when you did not want to: No Do you feel safe and well cared for: Yes Is there a partner from a previous or current relationship that is making you feel unsafe now: No Family Violence Clinical Observation All Negative Except 11/22/2017 14:30 Hourly Rounding - Rounding 11/22/2017 14:30 BSF Elimination/Toileting N Pain 6 Position Comfortable Y Safe Environment Y Fall Risk Change N 11/22/2017 15:31 Admit/Discharge - *Discharge instructions/tests andamp; procedures/med list reviewed and provided; prescriptions given to patient 11/22/2017 15:31 BSF 11/22/2017 15:31 Admit/Discharge - Ambulated with steady gait home 11/22/2017 15:31 BSF [facility] PATIENT NAME: MAXX KNOTT [address] [place] MEDICAL REC #: [id number] [place] [address] EMERGENCY DEPARTMENT CHART EMERGENCY DEPARTMENT PHYSICIAN MEDICATIONS IV I AND O VITALS VS-ROUTINE Time: 11/22/2017 13:27 B/P: 194/81 - Left Upper Arm - Sitting - Pulse: 100 - Monitor Resp: 15 Sa02: 97 Room Air Temp: 98.20 F - Oral 11/22/2017 13:30 VDP VS-Pain Time: 11/22/2017 13:27 Pain Level: 8 11/22/2017 13:30 VDP VS-GCS Time: 11/22/2017 13:27 Visual: 4 Verbal: 5 Motor: 6 GCS Total: 15 11/22/2017 13:30 VDP VS-HT/WT Time: 11/22/2017 13:27 Ht: 68 in. Stated Weight: 193 lbs Stated 11/22/2017 13:30 VDP VS-Visual Time: 11/22/2017 13:27 11/22/2017 13:30 VDP VS-FHT Time: 11/22/2017 13:27 11/22/2017 13:30 VDP VS-Notes Time: 11/22/2017 13:27 MAP 116 11/22/2017 13:30 VDP VS-ROUTINE Time: 11/22/2017 14:30 B/P: 167/73 - Right Upper Arm - Lying - Machine Pulse: 78 - Monitor Resp: 20 Sa02: 96 Room Air 11/22/2017 14:30 BSF VS-Pain Time: 11/22/2017 14:30 Pain Level: 6 11/22/2017 14:30 BSF VS-GCS Time: 11/22/2017 14:30 11/22/2017 14:30 BSF VS-HT/WT Time: 11/22/2017 14:30 11/22/2017 14:30 BSF VS-Visual Time: 11/22/2017 14:30 11/22/2017 14:30 BSF VS-FHT Time: 11/22/2017 14:30 11/22/2017 14:30 BSF VS-Notes Time: 11/22/2017 14:30 MAP 105 11/22/2017 14:30 BSF ORDERS [facility] PATIENT NAME: MAXX KNOTT [address] [place] MEDICAL REC #: [id number] [place] [address] EMERGENCY DEPARTMENT CHART EMERGENCY DEPARTMENT PHYSICIAN Discharge patient 11/22/2017 15:32 N/A Ordered: 11/22/2017 15:08 By . Other Reviewed: 11/22/2017 15:32 By . Other Morphine (IM)*(4mg/ml) DOSE:4 mg IM 11/22/2017 14:09 N/A Ordered: 11/22/2017 13:53 By Lee Samuels Completed Time: 11/22/2017 14:09 By Lee Samuels DISCHARGE Diagnosis: Recurrent prolapse of colon through colostomy without signs of incarceration/strangulation or obstruction. 11/22/2017 15:08 Disposition: Time: 11/22/2017 15:08 Discharge Time: 11/22/2017 15:35 Type: Discharge Condition: Stable for admission/discharge/transfer after emergency evaluation/treatment Category: *NOT APPLICABLE Referral: 11/22/2017 15:08 Admit Physician: . Other PRESCRIPTIONS [place] 5 mg-325 mg tablet 11/22/2017 15:08 SI q6h severe pain for 2 days Dispense: 8 / Refills: CHARGES SIGNATURE Lee SCHILLINGJ CADEN RAMIREZ RN VDP EMORY JACKSON RN BSF [facility] PATIENT NAME: MAXX KNOTT [facility] [address] MEDICAL REC #: [id number] [place] [address] EMERGENCY DEPARTMENT CHART EMERGENCY DEPARTMENT PHYSICIAN [facility] PATIENT NAME: MAXX KNOTT [facility] [address] MEDICAL REC #: [id number] [place] [address] EMERGENCY DEPARTMENT CHART EMERGENCY DEPARTMENT PHYSICIAN ED DOC Observed: 11/20/2017 Status: UNK Source: [facility] 3:24 PM CENTER [employer] REPOSITORY This is a preliminary report only, as the practitioner review and authentication has not occurred. ED DOC Observed: 11/20/2017 Status: UNK Source: [facility] 3:24 PM CENTER [place] REPOSITORY PHYSICIAN ASSESSMENT RECORDS : Discharge Report Event Time: 11/20/2017 14:49 : FlexChartData Event Time: 11/20/2017 15:20 Status: Signed [facility] Maxx Knott [[id number]] Attending Physician 67 / M / 1950 Chart (V2b) Chart created at 11/20/2017 14:45 by Ruperto Arndt Chart closed at 11/20/2017 14:48 Entry in Emergency Department at 11/20/2017 12:18 Patient Name: Maxx Knott Record Number: [id number] Date: 11/20/2017 14:45 Entered Department at: 11/20/2017 12:18 Patient Seen at: 11/20/2017 12:46 PCP: NAHID HUFF Chief Complaint:STATES PAIN FROM CHRONIC PROLAPSED COLOSTOMY. Triage Note reviewed and Initial Vital Signs reviewed. Temperature: 98.1 F (36.7 C). Pulse: 85. Respiratory Rate: 16. Blood-pressure: 184/81. Oxygen Saturation: 96%. History of Present Illness: This is a 67-year-old male with a complex abdominal history including perforated diverticulitis requiring a diverting transverse colostomy, he also has a history of CHF, COPD, coronary artery disease with a previous CABG, obstructive sleep apnea, hyperlipidemia. He presents to the emergency department today [facility] PATIENT NAME: MAXX KNOTT [address] [place] MEDICAL REC #: [id number] [place] [address] EMERGENCY DEPARTMENT CHART EMERGENCY DEPARTMENT PHYSICIAN with abdominal plane related to his colostomy. He reports that he hit it getting into the shower this morning and a prolapsed. He notes that it is still producing stool. He does report nausea but denies any vomiting. Review of Systems. All other systems reviewed and negative.. Past History, Medications, Allergies, Social History and Family History reviewed in nurses note. Medications: Reviewed RN Note. NORVASC 10MG TABLET - PO daily, losartan 100mg daily, PRAVASTATIN SODIUM 40MG TABLET - PO daily, vitamin b complex daily, multivitamin daily, FLEXERIL 10MG TABLET - PO daily, SEROQUEL 400MG TABLET - PO qhs, GABAPENTIN 300MG CAPSULE - PO 2 qhs, METOPROLOL TARTRATE 100MG TABLET - PO daily, LASIX 40MG TABLET - PO daily prn, ALBUTEROL SULFATE 0.5% SOLUTION FOR INHALATION - INH prn, PERCOCET 10MG-325MG TABLET - PO qid, NITROGLYCERIN 0.4MG SUBLINGUAL TABLET - SLG prn, LORATADINE 10MG TABLET - PO daily, verified 11/20/17 Allergies: Reviewed RN Note Altace (Ramipril)(Get Sick), CRESTOR (Get Sick), Ramipril(Get Sick), Simvastatin(Nausea and Vomiting), ATORVASTATIN (Get Sick), MOXIFLOXACIN (Difficulty Breathing), VOLTAREN (Get Sick), HYDROCHLOROTHIAZIDE (Get Sick) Social History: Reviewed RN Note. Family History: Reviewed RN Note Physical Examination: General: Alert and Well Developed HEENT: Normal ENT inspection. Neck: Supple Respiratory: No Resp Distress and Normal Breath Sounds Cardio-Vascular: No murmur and RRR Abdomen: Good bowel sounds in all 4 quadrants, there is an ostomy present [facility] PATIENT NAME: MAXX KNOTT [facility] [address] [place] MEDICAL REC #: [id number] [place] [address] EMERGENCY DEPARTMENT CHART EMERGENCY DEPARTMENT PHYSICIAN in the midabdomen which is pink, with stool surrounding it, it is mildly tender to palpation, it is prolapsed, unable to be manually reduced initially Back: Non-tender Extremity: No edema Neurological: Alert, Oriented X3 and No Gross Weakness Skin: No rash and Warm Psychological: Mood/Affect Normal CBC W/DIFF, information as of 11/20/2017, 1:02 pm 88.0 / 13.7 / 12.2* andgt;------andlt; 322 / 40.5* / N:76.7* BASO ABS: 0.00 K/Cu Mm; BASOPHIL %: 0.2 %; EOS ABS: 0.00 K/Cu Mm; EOSINOPHIL %: 0.2 %; IMMATR GRAN ABS: 0.10 K/Cu Mm; IMMATURE GRAN %: 0.4 %; LYMPH %: 16.3 %; LYMPH ABS: 2.00 K/Cu Mm; MCHC: 33.8 Gm/Dl; MONO ABS: 0.80 K/Cu Mm; MONOCYTE %: 6.2 %; MPV: 10.2; NEUTROPHIL ABS: 9.40 K/Cu Mm; NRBC: 0.0 %; RBC: 4.60 M/Cu Mm; RDW: 15.7 BMP, information as of 11/20/2017, 1:15 pm 139 --------+--------+--------andlt; 116* Anion Gap = 9 3.7 BUN/CREA: 18; CALCIUM TOTAL: 9.3 Mg/Dl Medical Decision Making This is a 67-year-old male with a past medical and surgical history as above who presents to the emergency department today for evaluation of abdominal pain related to a partially prolapsed colostomy. On my examination, patient is in no acute distress, he appears well, he does have some degree of chronic prolapse of the ostomy, but states that it is now worse. He does report nausea. There is no clinical evidence of bowel obstruction at this time, he does appear well. Labs are obtained demonstrating no anemia, there is mild leukocytosis, basic metabolic panel is normal. He was medicated for pain, initially with IM medication due to inability to obtain an IV, after this, manual reduction of the ostomy was attempted this was unsuccessful initially. An IV was subsequently established he was given a second dose of pain medication, and he was able to self reduce his [facility] PATIENT NAME: MAXX KNOTT [facility] [facility] MEDICAL REC #: [id number] [place] [address] EMERGENCY DEPARTMENT CHART EMERGENCY DEPARTMENT PHYSICIAN prolapsed ostomy back to a normal state. He reports proved abdominal pain, denies any nausea or vomiting at this time. I do believe he is suitable to be discharged home, it does appear that he is planning to go to the [facility] for ostomy reversal, I recommend that he follows up with them, in the interim, he will return if he has worsening abdominal pain, nausea or vomiting, fevers or chills, or any other worsening or nonimprovement. Additional Information: Old records reviewed. Discussed Results, Diagnosis and Follow-Up with Patient. Clinical Impression: 1. 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 Condition: Good MSE completed. I was the primary ED attending.. ===DISCHARGE REPORT=== : Discharge Report Event Time: 11/20/2017 14:49 Status: Draft Reasons to Return to the ER: You must return to the ER for any new, worsening or changing symptoms, or if you feel more ill or sick in any way. This is the most important thing to remember. Follow-up: The care you received in the ER was given on an emergency basis only, and it is often not possible to completely treat or diagnose a problem in a single ER visit. You must see your follow-up doctor for a recheck within a week unless you receive instructions with a different timeframe for follow-up. Please follow all your discharge instructions. [facility] PATIENT NAME: MAXX KNOTT [address] [facility] MEDICAL REC #: [id number] [place] [address] EMERGENCY DEPARTMENT CHART EMERGENCY DEPARTMENT PHYSICIAN Medications: Unless the ER doctor tells you differently, you should take all your regular medications and any new medications prescribed today. Because it is not possible for the ER doctor to review all of your medication side effects or interactions, you must review possible side effects and interactions with your pharmacist when you get your prescriptions filled. EKG and Radiology Results: A straightening machine operator or radiologist will review any EKG or radiology results provided by the ER doctor. We will contact you if the results in the final EKG or radiology reports require a change in treatment. Culture Results: Cultures may have been ordered during your ER visit. We will contact you if the culture results require a change in treatment. 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 REFERRAL Your regular doctor(s) [facility] PATIENT NAME: MAXX KNOTT [facility] [address] [place] MEDICAL REC #: [id number] [place] [address] EMERGENCY DEPARTMENT CHART EMERGENCY DEPARTMENT PHYSICIAN Please call the above number to schedule a follow-up appointment. 2-3 days MEDICATIONS We have given you these prescriptions that you must fill and start taking: None COMMENTS: Patient Satisfaction: Within the first few days after your visit, you will receive an email and/or phone call regarding your visit. We value your feedback, and would appreciate it if you would take the time to complete this short survey. If you receive a call, it will be between 6p and 8p. My signature below indicates that I have received and understand the oral instructions regarding my medical problem. I also acknowledge receipt of this written instruction sheet including a list of major tests and procedures ordered during my visit. I will arrange for follow-up care as indicated by these instructions and referrals. This signed original will be kept in my medical record. Your signature below indicates consent for Case Management to contact [facility] in an effort to meet your ongoing healthcare needs. This will allow forcontinuity of care once you leave the Emergency Department. This exchange of informationwill include, but not be limited to, disclosure of your patient information and possible release of records. : FlexChartData Event Time: 11/20/2017 15:20 DEMOGRAPHICS [employer] Patient: MAXX KNOTT Sex: M [facility] PATIENT NAME: MAXX KNOTT [address] [place] MEDICAL REC #: [id number] [place] [address] EMERGENCY DEPARTMENT CHART EMERGENCY DEPARTMENT PHYSICIAN : 1950 Age: 67 yr Account No: [id number] Registration Date: 12:11/20/2017 Address: [address] [place], [place] [address] [address] Address: [place] [address] REGISTRATION ED Number: [id number] Marital Status: D Financial Class: FEDP TRIAGE Priority: 3 - Urgent Complaint: Abdominal Pain Stated Complaint: STATES PAIN FROM CHRONIC PROLAPSED COLOSTOMY. Arrival Date: 11/20/2017 12:18 Triage Date: 11/20/2017 12:19 Mode of Arrival: *Privately Owned Vehicle WC: N Language: [place] Citizen Transport: Ambulatory/Walk In BED A07 In: 11/20/2017 12:28:46 11/20/2017 12:28:46 LLP A07 (Removed From) Out: 11/20/2017 15:24:06 11/20/2017 15:24:06 [employer] MEMBER PROVIDERS MD Ruperto Arndt Provider Contact: 11/20/2017 12:46:23 ADB End: [facility] PATIENT NAME: MAXX KNOTT [address] [place] MEDICAL REC #: [id number] [place] [address] EMERGENCY DEPARTMENT CHART EMERGENCY DEPARTMENT PHYSICIAN MITCHELL JUÁREZ Provider Contact: 11/20/2017 12:52:00 ARM End: TRIAGE HISTORY ALLERGIES Allergic To: CRESTOR - Get Sick 11/20/2017 12:19 TPJ Allergic To: Ramipril - Get Sick 11/20/2017 12:19 TPJ Allergic To: Simvastatin - Nausea and Vomiting 11/20/2017 12:19 TPJ Allergic To: ATORVASTATIN - Get Sick 11/20/2017 12:19 TPJ Allergic To: MOXIFLOXACIN - Difficulty Breathing 11/20/2017 12:19 TPJ Allergic To: VOLTAREN - Get Sick 11/20/2017 12:19 TPJ Allergic To: HYDROCHLOROTHIAZIDE - Get Sick 11/20/2017 12:19 TPJ CURRENT MEDS Name: NORVASC 10MG TABLET - PO daily 11/20/2017 12:28 LLP Name: losartan 100mg daily 11/20/2017 12:28 LLP Name: PRAVASTATIN SODIUM 40MG TABLET - PO daily 11/20/2017 12:28 LLP Name: vitamin b complex daily 11/20/2017 12:28 LLP Name: multivitamin daily 11/20/2017 12:28 LLP Name: FLEXERIL 10MG TABLET - PO daily 11/20/2017 12:28 LLP Name: SEROQUEL 400MG TABLET - PO qhs 11/20/2017 12:28 LLP [facility] PATIENT NAME: NIKOSMAXX B [address] [place] MEDICAL REC #: [id number] [place] [address] EMERGENCY DEPARTMENT CHART EMERGENCY DEPARTMENT PHYSICIAN Name: GABAPENTIN 300MG CAPSULE - PO 2 qhs 11/20/2017 12:28 LLP Name: METOPROLOL TARTRATE 100MG TABLET - PO daily 11/20/2017 12:28 LLP Name: LASIX 40MG TABLET - PO daily prn 11/20/2017 12:28 LLP Name: ALBUTEROL SULFATE 0.5% SOLUTION FOR INHALATION - INH prn 11/20/2017 12:28 LLP Name: PERCOCET 10MG-325MG TABLET - PO qid 11/20/2017 12:28 LLP Name: NITROGLYCERIN 0.4MG SUBLINGUAL TABLET - SLG prn 11/20/2017 12:28 LLP Name: LORATADINE 10MG TABLET - PO daily 11/20/2017 12:28 LLP Name: verified 11/20/17 11/20/2017 12:28 LLP ILLNESS Illness: CHF 11/20/2017 12:19 TPJ Illness: COPD 11/20/2017 12:19 TPJ Illness: Angina/CAD 11/20/2017 12:19 TPJ Illness: Hypertension 11/20/2017 12:19 TPJ Illness: Sleep Apnea 11/20/2017 12:19 TPJ Illness: High Cholestrol 11/20/2017 12:19 TPJ Illness: Diverticulitis 11/20/2017 12:19 TPJ PAST SURGERY HIST Surgery: Cardiac Bypass 11/20/2017 12:19 TPJ Surgery: Appendectomy 11/20/2017 12:19 TPJ Surgery: COLOSTOMY 11/20/2017 12:19 TPJ [facility] PATIENT NAME: MAXX KNOTT [facility] [facility] MEDICAL REC #: [id number] [place] [address] EMERGENCY DEPARTMENT CHART EMERGENCY DEPARTMENT PHYSICIAN Surgery: triple heart bypass 11/20/2017 12:19 TPJ PAST SOCIAL HIST Social History: Communicates without difficulty 11/20/2017 12:19 TPJ Social History: Lives with family or significant other 11/20/2017 12:19 TPJ Social History: Alcohol - None 11/20/2017 12:19 TPJ Social History: Recreational Drugs - None 11/20/2017 12:19 TPJ Social History: Smoker-1/2-3/4 PPD 11/20/2017 12:19 TPJ Social History: Denies Domestic Violence 11/20/2017 12:19 TPJ Social History: Denies thoughts of self harm. 11/20/2017 12:19 TPJ Social History: Have you traveled in the past month? Where no 11/20/2017 12:19 TPJ NURSING ASSESSMENT ASSESSMENT NOTES 11/20/2017 13:28 PT C/O PAIN FROM PROLAPSED COLOSTOMY. STATES HE BUMPED IT ON THE SHOWER DOOR TODAY AND IT IS NOW MORE PAINFUL. THE PT DENIES ANY OTHER COMPLAINTS. THE PT IS Aandamp;OX3. RESPIRATIONS EVEN AND EASY. SKIN WARM AND DRY. 11/20/2017 14:49 ARM 11/20/2017 15:09 DISCHARGE INSTRUCTIONS REVIEWED WITH PT. IV REMOVED TIP INTACT. PT STATES HIS BROTHER IS HERE TO PICK HIM UP. PT ADVISED HIS BROTHER HAS TO COME IN BECAUSE HE HAD MORPHINE. PT AGREES. PT WAITING IN ROOM FOR BROTHER. 11/20/2017 15:10 ARM 11/20/2017 15:11 REPORT GIVEN TO MITCHELL CAMERON 11/20/2017 [facility] PATIENT NAME: MAXX KNOTT [address] [place] MEDICAL REC #: [id number] [place] [address] EMERGENCY DEPARTMENT CHART EMERGENCY DEPARTMENT PHYSICIAN 15:11 ARM 11/20/2017 15:22 Clinical sobriety performed at this time. Pt answered all questions correctly. Pt ambulated to the lobby with a steady gait. 11/20/2017 15:23 PRODUCE PRODUCTION TEAM MEMBER TREATMENT 11/20/2017 13:28 Hourly Rounding - Rounding 11/20/2017 13:28 ARM Elimination/Toileting N Pain 8 Position Comfortable Y Safe Environment Y Fall Risk Change N 11/20/2017 13:28 Staff/ Patient Interaction - Introduced self and assessed patients needs. 11/20/2017 13:28 ARM 11/20/2017 13:28 Staff/ Patient Interaction - Side rails up X2 and call light placed within reach. 11/20/2017 13:28 ARM 11/20/2017 14:31 Hourly Rounding - Rounding 11/20/2017 14:33 ARM Elimination/Toileting N Pain 8 Position Comfortable Y Safe Environment Y Assessment Note PT STATES PAIN DID NOT IMPROVE AFTER IM MEDICATIONS. PT MEDICATED PER ORDER. Fall Risk Change N 11/20/2017 14:46 Primary DOC Guide - A. 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 MEDICAL REC #: [id number] [place] [address] EMERGENCY DEPARTMENT CHART EMERGENCY DEPARTMENT PHYSICIAN Travel History - Had contact with a person who has traveled outside the state in the last 30 days No 11/20/2017 14:47 Primary DOC Guide - C. Geriatric (65+) Fall Risk Assessment 11/20/2017 14:48 ARM Do you need to push with hands to get up from chair? Yes (1) STEADI Score Total 5 STEADI Fall Assessment Score of 4 or greater? Yes Any falls in the last year? Yes (2) Use a cane or walker? Yes (2) 11/20/2017 14:48 Primary DOC Guide - D. Psychosocial Assessment 11/20/2017 14:48 ARM Over the Last 2 weeks, how often have you had little interest or pleasure in doing things (0) Not at All Is Psychosocial Assessment Score 3 or more? If score is 3 or more please consult ED Navigator! No Total Psychosocial Assessment Score 0 Over the last 2 weeks, how often have you been feeling down, depressed or hopeless (0) Not at All 11/20/2017 14:48 Primary DOC Guide - E. Family Violence Assessment 11/20/2017 14:48 ARM Within the past year, has anyone ever pushed, shoved, slapped, choked, hit, punched or kicked you: No Within the past year, has anyone ever pressured or forced you to have sexual activities when you did not want to: No Is there a partner from a previous or current relationship that is making you feel unsafe now: No 11/20/2017 15:08 Discharge - Instructions reviewed with pt and verbalizes understanding 11/20/2017 15:09 ARM 11/20/2017 15:09 Discharge - Printed discharge instructions given to pt. 11/20/2017 15:09 ARM 11/20/2017 15:09 Education - Discharge Instructions reviewed and patient voices understanding. 11/20/2017 15:09 ARM 11/20/2017 15:09 Education - Disease process discussed. 11/20/2017 15:09 ARM 11/20/2017 15:09 Education - Pain Management [facility] PATIENT NAME: MAXX KNOTT [facility] MEDICAL REC #: [id number] [place] [address] EMERGENCY DEPARTMENT CHART EMERGENCY DEPARTMENT PHYSICIAN Re-Assessed 11/20/2017 15:09 ARM MEDICATIONS IV IV Fluid: B 11/20/2017 14:18 11/20/2017 14:18 NAY Line #: 1 Fluid: Saline Lock Rate: ml/hr Location: arm left Ndl Gauge: 22 # Attempts: 1 Notes: IV START KIT USED, GOOD BLOOD RETURN, FLUSHED WELL. IV Fluid: E 11/20/2017 15:07 11/20/2017 15:08 ARM Line #: 1 Rate: ml/hr Location: arm left Ndl Gauge: 22 # Attempts: 1 Notes: IV REMOVED TIP INTACT. NO REDNESS OR EDEMA AT SITE. BLEEDING CONTROLLED. DRESSING APPLIED. I AND O VITALS VS-ROUTINE Time: 11/20/2017 12:24 B/P: 184/81 - Right Upper Arm - Sitting - Machine Pulse: 85 - Monitor Resp: 16 Sa02: 96 Room Air Temp: 98.10 F - Oral 11/20/2017 12:28 LLP VS-Pain Time: 11/20/2017 12:24 Pain Level: 8 11/20/2017 12:28 LLP VS-GCS Time: 11/20/2017 12:24 Visual: 4 Verbal: 5 Motor: 6 GCS Total: 15 11/20/2017 12:28 LLP VS-HT/WT Time: 11/20/2017 12:24 Ht: 68 in. Stated Weight: 193 lbs Stated 11/20/2017 12:28 LLP VS-Visual Time: 11/20/2017 12:24 11/20/2017 12:28 LLP VS-FHT Time: 11/20/2017 12:24 11/20/2017 12:28 LLP VS-Notes Time: 11/20/2017 12:24 map 116 11/20/2017 12:28 LLP [facility] PATIENT NAME: MAXX KNOTT [address] [place] MEDICAL REC #: [id number] [place] [address] EMERGENCY DEPARTMENT CHART EMERGENCY DEPARTMENT PHYSICIAN VS-ROUTINE Time: 11/20/2017 14:30 B/P: 192/82 - Right Upper Arm - Lying - Machine Pulse: 67 - Monitor Resp: 16 Sa02: 97 Room Air 11/20/2017 14:31 ARM VS-Pain Time: 11/20/2017 14:30 Pain Level: 8 11/20/2017 14:31 ARM VS-GCS Time: 11/20/2017 14:30 Visual: 4 Verbal: 5 Motor: 6 GCS Total: 15 11/20/2017 14:31 ARM VS-HT/WT Time: 11/20/2017 14:30 11/20/2017 14:31 ARM VS-Visual Time: 11/20/2017 14:30 11/20/2017 14:31 ARM VS-FHT Time: 11/20/2017 14:30 11/20/2017 14:31 ARM VS-Notes Time: 11/20/2017 14:30 MAP 118 11/20/2017 14:31 ARM VS-ROUTINE Time: 11/20/2017 15:06 B/P: 180/76 - Right Upper Arm - Lying - Manual Pulse: 87 - Monitor Resp: 16 Sa02: 97 Room Air 11/20/2017 15:07 ARM VS-Pain Time: 11/20/2017 15:06 Pain Level: 4 11/20/2017 15:07 ARM VS-GCS Time: 11/20/2017 15:06 Visual: 4 Verbal: 5 Motor: 6 GCS Total: 15 11/20/2017 15:07 ARM VS-HT/WT Time: 11/20/2017 15:06 11/20/2017 15:07 ARM VS-Visual Time: 11/20/2017 15:06 11/20/2017 15:07 ARM VS-FHT Time: 11/20/2017 15:06 11/20/2017 15:07 ARM VS-Notes Time: 11/20/2017 15:06 11/20/2017 15:07 ARM ORDERS Discharge patient 11/20/2017 14:50 N/A Ordered: 11/20/2017 14:49 By . Other Reviewed: 11/20/2017 14:50 By . Other Morphine (IV)*(4mg/ml) DOSE: 4 mg IV 11/20/2017 14:30 N/A Ordered: 11/20/2017 14:18 By Ruperto Arndt Completed Time: 11/20/2017 14:30 By Ruperto Arndt WOMEN DESIGNER ORDER: GFRP 11/20/2017 13:45 None [facility] PATIENT NAME: MAXX KNOTT [address] [facility] [address] [facility] MEDICAL REC #: [id number] [place] [address] EMERGENCY DEPARTMENT CHART EMERGENCY DEPARTMENT PHYSICIAN Ordered: 11/20/2017 13:45 Completed Time: 11/20/2017 13:45 Results Time: 11/20/2017 13:45 Zofran (IM)*(2mg/ml) DOSE: 4 mg IM 11/20/2017 13:27 N/A Ordered: 11/20/2017 13:27 By Ruperto Arndt Completed Time: 11/20/2017 13:27 By Ruperto Arndt Morphine (IM)*(10mg/ml) DOSE: 10 mg IM 11/20/2017 13:27 N/A Ordered: 11/20/2017 13:20 By Rpuerto Arndt Completed Time: 11/20/2017 13:27 By Ruperto Arndt CBC with diff 11/20/2017 14:13 N/A Ordered: 11/20/2017 13:01 By Ruperto Arndt Completed Time: 11/20/2017 14:13 By Ruperto Arndt Noted Time: 11/20/2017 13:17 DEN Results Time: 11/20/2017 14:13 BMP 11/20/2017 13:45 N/A Ordered: 11/20/2017 13:01 By Ruperto Arndt Completed Time: 11/20/2017 13:45 By Ruperto Arndt Noted Time: 11/20/2017 13:17 DEN Results Time: 11/20/2017 13:45 IV hep lock 11/20/2017 13:28 N/A Ordered: 11/20/2017 13:01 By Ruperto Arndt Noted Time: 11/20/2017 13:03 ARM Cancelled: 11/20/2017 13:28 ARM Cancelled Reason: OK PER DR. ARNDT. Morphine (IV)*(4mg/ml) DOSE: 8 mg IV 11/20/2017 13:20 N/A Ordered: 11/20/2017 13:01 By Ruperto Arndt Noted Time: 11/20/2017 13:03 ARM Cancelled: 11/20/2017 13:20 ADB Cancelled Reason: cnacel Zofran (IV)*(2mg/ml) DOSE: 4 mg IV 11/20/2017 13:20 [facility] PATIENT NAME: MAXX KNOTT 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 Other PRESCRIPTIONS CHARGES SIGNATURE Mariza Louie RN LLP LYNN VILLASENOR RN TPJ Ruperto Arndt MD ADB NANETTE LIU [employer] TEAM MEMBER [facility] PATIENT NAME: MAXX KNOTT [facility] [facility] MEDICAL REC #: [id number] [place] [address] EMERGENCY DEPARTMENT CHART EMERGENCY DEPARTMENT PHYSICIAN BMP Collected: 11/20/2017 Status: F Source: [facility] 1:15 PM [facility] REPOSITORY Order Comment: [place]: TYPE CODE TESTS RESULT OUT OF RANGE REFERENCE UNITS LAB L500.25880 136-145 MMOL/L Normal NA 139 LAB L500.14875 3.5-5.1 MMOL/L Normal K 3.7 Result Comment: Slight Hemolysis, Result may be falsely increased. LAB L500.29686 98-107 MMOL/L Normal CL 104 LAB L500.91517 21-32 MMOL/L Normal CO2 26 LAB L500.61811 5-16 MMOL/L Normal AGAP 9 LAB L500.65989 70-100 MG/DL High GLU 116 Result Comment: 70-100- Normal Fasting; 100-125 Impaired Fasting; greater than 126 on more than one result- Diabetes. ADA guidelines. Results may be falsely elevated after the administration of Sulfapyridine. Results may be falsely depressed after the administration of Sulfasalazine. LAB L500.27478 7-26 MG/DL Normal BUN 16 LAB L500.52427 0.670-1.170 MG/DL Normal CREAT 0.874 Result Comment: Patients receiving either N-Acetylcysteine (NAC) or Metamizole prior to venipuncture, may have falsely depressed results. LAB L500.01418 15-24 Normal BUN/CREA 18 LAB L500.05221 8.5-10.1 MG/DL Normal CALCIUM TOTAL 9.3 Performed By: #### L500.95011, L500.28034 #### [facility] [address] [place] [address] GFR EST Collected: 11/20/2017 Status: F Source: [facility] 1:15 PM [facility] REPOSITORY Order Comment: [place]: TYPE CODE TESTS RESULT OUT OF RANGE REFERENCE UNITS LAB L500.02018 ML/MIN Normal IF non-AFR Greater than AMER 60 LAB L500.41391 ML/MIN Normal IF Greater than AMER 60 Performed By: #### L500.77577, L500.68587 #### [facility] [address] [place] [id number] CBC W/DIFF Collected: 11/20/2017 Status: F Source: [facility] 1:15 PM [facility] REPOSITORY Order Comment: [place]: M TYPE CODE TESTS RESULT OUT OF RANGE REFERENCE UNITS LAB L200.65859 4.5-11.0 K/CU MM High WBC 12.2 LAB L200.91922 4.50-6.00 M/CU MM RBC Normal 4.60 LAB L200.63652 13.5-17.5 G/DL HGB Normal 13.7 LAB L200.04430 41.0-53.0 % Low HCT 40.5 LAB L200.04147 80.0-99.0 fl MCV Normal 88.0 LAB L200.59072 32.0-36.0 GM/DL MCHC Normal 33.8 LAB L200.64421 11-14.5 High RDW 15.7 LAB L200.11025 9.4-12.4 MPV Normal 10.2 LAB L200.95838 150-450 K/CU MM PLT Normal 322 LAB L200.42592 45-75 % High NEUTROPHILS % 76.7 LAB L200.72306 Less than 2 % IMMATURE Normal GRAN % 0.4 LAB L200.25599 20-40 % Low LYMPH % 16.3 LAB L200.83758 2-10 % MONOCYTE % Normal 6.2 LAB L200.11592 0-5 % EOSINOPHIL Normal % 0.2 LAB L200.93521 0-2 % BASOPHIL % Normal 0.2 LAB L200.74861 2.0-8.3 K/CU MM High NEUTROPHIL ABS 9.40 LAB L200.94160 Less than 2 K/CU MM IMMATR GRAN Normal ABS 0.10 LAB L200.49366 0.9-4.4 K/CU MM LYMPH ABS Normal 2.00 LAB L200.59604 0.1-1.1 K/CU MM MONO ABS Normal 0.80 LAB L200.14150 0-0.5 K/CU MM EOS ABS Normal 0.00 LAB L200.89125 0-0.2 K/CU MM BASO ABS Normal 0.00 LAB L200.48973 Less than 1 % NRBC Normal 0.0 Performed By: #### L200.00757 #### [facility] [address] [place] [address]# [phone] ED NOTE Observed: 11/19/2017 Status: COMPLETED Source: [place] 3:49 PM [facility] REPOSITORY HNO ID: [id number] Author: Michelle (Rn) MITCHELL Smith Service: Emergency Medicine Author Type: Registered Nurse Type: ED Notes Filed: 11/19/2017 3:52 PM Note Text: Pt left before signing discharge/AMA paperwork. PROGRESS Observed: 11/19/2017 Status: COMPLETED Source: [place] 3:21 PM [facility] REPOSITORY HNO ID: [id number] Author: Frederic Betancourt Psr Service: (none) Author Type: (none) Type: Progress Notes Filed: 11/19/2017 3:23 PM Note Text: Pt is in bed E18-12, pt has been working with care advocate, will need ER follow up visit once release. Pt didn't want to talk advise that was understood. ED NOTE Observed: 11/19/2017 Status: COMPLETED Source: [place] 3:20 PM [facility] REPOSITORY HNO ID: [id number] Author: Michelle KingRn) MITCHELL Smith Service: Emergency Medicine Author Type: Registered Nurse Type: ED Notes Filed: 11/19/2017 3:21 PM Note Text: Resident Ana at bedside. Pt states fall 2 hours ago, when he noticed portion of intestines in ostomy bag. C/o of nausea. Requesting pain medication. NAD noted. Safety checks completed. Will continue to monitor. ED NOTE Observed: 11/19/2017 Status: COMPLETED Source: [place] 3:19 PM [facility] REPOSITORY HNO ID: [id number] Author: Kiara Aparicio (Medic) Service: Emergency Medicine Author Type: Bed Setter and Scraper Meat Type: ED Notes Filed: 11/19/2017 3:20 PM Note Text: Holding off on IV at this time per Resident. ED PROV NOTE Observed: 11/19/2017 Status: COMPLETED Source: [place] 3:19 PM [facility] REPOSITORY HNO ID: [id number] Author: Jerry (Twin) MD Ana Service: Emergency Medicine Author Type: Resident Type: ED Provider Notes Filed: 11/19/2017 4:03 PM Note Text: Attestation signed by Jesus Rojas MD at 11/19/2017 4:24 PM Attending Note I evaluated the patient and personally participated in the nelson components. I agree with the resident's findings and plan as documented and have discussed the case and management of the patient's care with the resident. See my comments in ED course Eloped after opioids were declined ED Provider Note Patient Name: Maxx Knott SERVICE DATE: 11/19/17 History Patient presents with: Abdominal Pain Nausea AND Vomiting Maxx Knott is a 67 year old male with a hx of diverticulitis, CAD status post CABG post pacemaker, smoker, AAA, COPD presenting to the ED for prolapsed colostomy ?2 hours. The patient has a history of recurrent colostomy prolapse. The patient reports he was walking through his house 2 hours ago and fell onto a carpeted floor. He denies vision changes, dizziness, lightheadedness before the fall. He denies pain elsewhere. He does endorse nausea with vomiting prior to arrival, but is tolerating PO. Vomit was nonbloody and nonbilious. He denies changes in his ostomy output. He denies urinary symptoms, fever, chills, chest pain, shortness of breath. History provided by: Patient interpreter deaf used: No PAST MEDICAL HISTORY Diagnosis Date - AAA (abdominal aortic aneurysm) without rupture ([facility]) 05/13/[address] a/p - CAD (coronary artery disease) 2005 CAD s/p CABG x3 (TAGP-IHP-oviufj, UZX-ZDR-nihcbj, QKI-UX3-mrcjmgft) (2006 at [place]) - COPD (chronic obstructive pulmonary disease) ([facility]) - Current every day smoker PT SMOKES A PIPE - Diverticulitis Perforated Diverticulitis - Diverticulitis of sigmoid colon 05/15/2017 Added automatically from request for surgery [id number] - Hx of CABG - Pacemaker 02/16/2017 s/p PPM () 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 - Peritonitis ([facility]) PAST SURGICAL HISTORY Procedure Laterality Date - APPENDECTOMY HX - COLOSTOMY 07/2016 Diverting Loop Colostomy of the Transverse Colon - HEART SURGERY HX triple bypass 10 yrs ago - PPM IMPLANT - STENT - CORONARY FAMILY HISTORY Problem Relation Age of Onset - Coronary Artery Disease Father - Hyperlipidemia Father Social History Social History Main Topics - Smoking status: Current Every Day Smoker Packs/day: 0.50 Years: 35.00 Types: Pipe, Cigarettes - Smokeless tobacco: Never Used Comment: Quit cigarettes 11-16-16 now smoking 4 pipes as of 04-18-17 - Alcohol use No - Drug use: No - Sexual activity: Not Currently ALLERGIES Allergen Reactions - Altaseptic Unknown - Brilinta [Ticagrelo* Unknown - Crestor [Rosuvastat* Myalgia - Hctz [Amiloride-Hyd* Swelling - Moxifloxacin Swelling - Other [place]-3s Unknown brelinta - Ramipril Swelling Other reaction(s): Facial swelling - Simvastatin Myalgia Other reaction(s): Facial swelling - Voltaren [Diclofena* Unknown Review of Systems Constitutional: Negative for chills and fever. HENT: Negative for ear pain, hearing loss, trouble swallowing and voice change. Eyes: Negative for pain and visual disturbance. Respiratory: Negative for cough and shortness of breath. Cardiovascular: Negative for chest pain and palpitations. Gastrointestinal: Positive for abdominal pain, nausea and vomiting. Negative for blood in stool, constipation and diarrhea. Prolapsed colostomy Genitourinary: Negative for dysuria and frequency. Musculoskeletal: Negative for arthralgias and myalgias. Skin: Negative for color change and rash. Neurological: Negative for dizziness, weakness and numbness. Psychiatric/Behavioral: Negative for confusion. Physical Exam BP 175/74 Pulse 89 Temp (Src) 98.6 (Oral) Resp 18 Ht 5' 8 (1.73m) Wt 193 lb (87.5kg) SpO2 98% BMI 29.35 kg/(m2). Physical Exam Constitutional: He is oriented to person, place, and time. He appears well-developed and well-nourished. No distress. HENT: Head: Normocephalic and atraumatic. Eyes: Conjunctivae are normal. Pupils are equal, round, and reactive to light. Neck: Normal range of motion. Neck supple. Cardiovascular: Normal rate, regular rhythm and normal heart sounds. Pulmonary/Chest: Effort normal and breath sounds normal. Abdominal: Soft. Bowel sounds are normal. He exhibits no distension and no mass. There is no hepatosplenomegaly. There is tenderness. There is no rebound and no guarding. Hernia confirmed negative in the ventral area. Right lower quadrant colostomy. Prolapsing colon, about 10 cm, into the ostomy bag. Stool appears brown and nonbloody. The stoma appears pink and healthy, no dusky discoloration. Musculoskeletal: Normal range of motion. He exhibits no tenderness. Neurological: He is alert and oriented to person, place, and time. Skin: Skin is warm and dry. No rash noted. Psychiatric: He has a normal mood and affect. His behavior is normal. Judgment and thought content normal. Nursing note and vitals reviewed. Diagnostic Testing ED Labs Ordered and Reviewed - No data to display Procedures : none ED Course / Clinical Impression ED Course as of Nov 19 1552 Jerry (Twin) Ana's Documentation SunNov 19, 2017 1547 Patient declining reduction of his prolapsed colostomy at this time stating he needs IV narcotics beforehand. Patient states he does not have active narcotic prescriptions at home. [place]ARRS shows active vicodin prescription from 2 days ago. EMR shows patient was seen and worked up in [place] for this last night, which the patient denies. Discussed non-opiate analgesia, which the patient refused, stating he wants to leave. While preparing the AMA form, the patient eloped from the ED. Others' Documentation SunNov 19, 2017 8139 I went into the patient's room. I confronted him about the fact that he was seen in [facility] for this last night he denied being there. He began asking for IV opioids I explained that we would be comfortable reducing his hernia however-- we offered to use sucrose. Patient stated he only wants IV opioids explained that that is not appropriate, offered alternatives also discussed his inconsistencies at which point he got up and walked out Abdomen soft and benign definitely not peritoneal [BF] ED Course User Index [BF] Jesus Rojas MD Clinical Impressions as of Nov 19 1552 Colostomy prolapse (HCC) Non-intractable vomiting with nausea, unspecified vomiting type MDM / Disposition / Plan Old Chart review, significant findings include - Patient seen frequently for prolapsing colostomy here in another locations. Last seen last night at [place] for the same symptoms. CT abdomen last night showed no acute abnormality. There was no evidence of SBO at that time. Patient declining reduction at that time saying the areas was too sensitive. The patient declined nonopiate pain medications at that time. PDMP website checked and validated. Prescriptions have been INAPPROPRIATELY filled by multiple providers. 11/19/2017 by Jerry Perez MD The patient was evaluated as above. 67 year old male presents for colostomy prolapse with recurring colostomy prolapses. The patient is been seen many times in the past for similar complaints. He was worked up last night at [place] for this, at which time CT abdomen and pelvis showed no acute abnormality or signs of SBO. Patient refused reduction and nonnarcotic medications at that time. He denies this visit completely. On exam the patient has prolapsed colostomy. Mucosa appears pink and healthy without signs of strangulation or ischemia. Stool is brown without blood, no signs of perforation or dysfunction. [place]ARRS was reviewed and showed multiple narcotic prescriptions from many providers. Discussed with the patient that narcotic medications would not be given today. The patient was offered and refused non-narcotic analgesia. The patient was offered and refused reduction with shoulder or manual reduction, stating the area hurts too much. The patient was informed that reduction would be necessary to prevent progression or possible obstruction, however patient continues to decline reduction. Patient prefers discharge with outpatient follow-up at this time. The patient prefers to leave AMA, which was discussed as above. The patient was informed of the risk of possible pain, suffering, permanent disability or should he choose to leave before his clinical evaluation and treatment complete. Patient verbalizes understanding. Prior to signing the AMA form, the patient eloped from the ED. The patient was discharged AMA - eloped prior to signing form Condition at time of disposition: unchanged SIGNATURE: MD Jerry Acosta (Res) MD Ana Resident 11/19/17 1607 Jesus Rojas MD 11/19/17 1625 ED NOTE Observed: 11/19/2017 Status: COMPLETED Source: [place] 3:08 PM [facility] REPOSITORY HNO ID: [id number] Author: Shannon KingRn) MITCHELL Soto Service: (none) Author Type: Registered Nurse Type: ED Notes Filed: 11/19/2017 3:08 PM Note Text: Bed: E18-12 Expected date: Expected time: Means of arrival: Comments: EMS ED NOTE Observed: 11/19/2017 Status: COMPLETED Source: [place] 3:04 PM [facility] [facility] [place] REPOSITORY HNO ID: [id number] Author: Mary KingRn) MITCHELL Zaidi Service: Emergency Medicine Author Type: Registered Nurse Type: ED Notes Filed: 11/19/2017 3:08 PM Note Text: Pt brought to triage vi wheelchair for c/o trip and fall 2 hrs ago, noticed what appeared to be portion of his intestines in his ostomy bag. DISCHARGE INSTRUCTION Observed: 11/18/2017 Status: F Source: [place] 4:19 PM [facility] REPOSITORY [facility] Medical Records Department [address] [place] [address] Discharge Instruction 11/18/17 1618 MR#: [id number] Acct: [id number] Name: MAXX KNOTT Rep #: [id number] : 1950 67 From: Torsten Garcia DO PCP: [facility], [place] Status: REG ER ED Disposition - Plan for ED Patient: Chief Complaint: Fall Instructions: ED Mechanical Fall, Colostomy: Caring for Your Stoma Referrals: [facility] [Primary Care Provider] - Additional Instructions: see your surgeon What to do if you have Problems For any increased pain, shortness of breath, bleeding, nausea or vomiting, chest pain, or any unexpected problems, contact your Primary Care Provider. Call [facility] ([phone]) or report to the closest Emergency Room. Call 911 if necessary. 11/18/17 1619 <Electronically signed by Torsten Garcia DO> Date Torsten Garcia DO Cosigner Signature (If Indicated): Date CC: [facility] EMERGENCY DEPARTMENT Observed: 11/18/2017 Status: F Source: [place] SUMMARY 4:17 PM [facility] REPOSITORY [facility] Medical Records Department [address] [place] [address] Emergency Department Summary 11/18/17 1615 MR#: [id number] Acct: [id number] Name: MAXX KNOTT Rep #: [id number] : 1950 67 From: Torsten Garcia DO PCP: [facility], [place] Status: REG ER - ER Visit Summary Date of Service: 11/18/17 Chief Complaint: [Fall and stoma herniation] History of Present Illness: The patient is a 67 M [presents the emergency department with complaint of a fall 2 hours ago and his colostomy herniating. Patient states that he has a colostomy due to history of diverticulitis. Patient is scheduled to have the colostomy reason first in about a month at [facility]. Patient states he tripped over a bed sheet today falling onto his abdomen. Patient has had multiple other visits for same complaint the last time was yesterday and patient was seen in the emergency department yesterday. Patient denies any nausea or vomiting. Patient denies recent illness.] Physical Examination: [HEENT-PERRLA, EOMI. Cranial nerves II through XII grossly intact. TMs clear. Mucous membranes moist. No adenopathy. Cardiovascular-regular rate and rhythm without murmur or ectopy Lungs-clear to auscultation, chest wall stable without crepitus or subcu emphysema Abdomen-normoactive bowel sounds, soft, tender to palpation around colostomy site., no rebound or rigidity, no peritoneal signs. Patient has a large herniation of bowel through colostomy site in the right lower quadrant. The bowel appears pink. Extremities-intact 4, normal range of motion, normal pulses, atraumatic] Test Results: [None indicated] Emergency Department Course and Treatment: [Patient was given a milligram of Dilaudid and 4 mg of Zofran IM. I was able to easily reduce the herniation and abdominal binder placed.] Treatment Plan: [Patient to follow-up with his surgeons.] Disposition: [Discharged home in stable condition] Impression: [Mechanical fall Colostomy bowel herniation-reduced] This note was generated with [employer]os[employer] dictation software. It may contain incorrect words, spelling, and punctuation that were not noted in review of the chart prior to signing ED Disposition - Plan for ED Patient: Chief Complaint: Fall Referrals: [facility] [Primary Care Provider] - What to do if you have Problems For any increased pain, shortness of breath, bleeding, nausea or vomiting, chest pain, or any unexpected problems, contact your Primary Care Provider. Call [facility] ([phone]) or report to the closest Emergency Room. Call 911 if necessary. 11/18/17 7842 <Electronically signed by Torsten Garcia DO> Date Torsten Garcia DO Cosigner Signature (If Indicated): Date CC: [facility] CHEST 2 VIEWS Observed: 11/18/2017 Status: F Source: [facility] 12:10 PM HEALTH SYSTEM REPOSITORY Performed at [facility] APPROVED BY: Lenin Blakely MD EXAMINATION: CHEST RADIOGRAPH (2 VIEW FRONTAL & LATERAL) Clinical History: Patient presents with chest pain. MQ: [id number] Comparison: 09/22/2017 RESULT: Lines, tubes, and devices: Left subclavian pacer unchanged. Lungs and pleura: No consolidation. No lung mass. No pleural effusion. Cardiomediastinal silhouette: Normal cardiomediastinal silhouette. Other: No acute bony abnormalities seen. Multilevel thoracic spondylosis. IMPRESSION: No acute radiographic abnormality. ED NOTE Observed: 11/18/2017 Status: COMPLETED Source: [place] 12:04 PM [facility] REPOSITORY HNO ID: [id number] Author: Rebecca Laurent RN Service: Emergency Medicine Author Type: Registered Nurse Type: ED Notes Filed: 11/18/2017 12:04 PM Note Text: Pt to xray at this time. ED NOTE Observed: 11/18/2017 Status: COMPLETED Source: [place] 11:29 AM [facility] REPOSITORY HNO ID: [id number] Author: Rebecca Laurent RN Service: Emergency Medicine Author Type: Registered Nurse Type: ED Notes Filed: 11/18/2017 11:29 AM Note Text: Rad room called at this time. HEMOGRAM/DIFF Collected: 11/18/2017 Status: F Source: [facility] 11:08 AM HEALTH SYSTEM REPOSITORY TYPE CODE TESTS RESULT OUT OF REFERENCE UNITS RANGE LAB WBC(LOINC) 4.23-9.07 thou/cmm WBC High 10.30 LAB RBC(LOINC) 4.63-6.08 mil/cmm Low RBC 4.44 LAB HGB(LOINC) 13.7-17.5 g/dL Low Hgb 13.3 LAB HCT(LOINC) 40.1-51.0 % Low Hct 39.7 LAB MCV(LOINC) 83.2-95.6 fl MCV 89.4 LAB MCH(LOINC) 25.7-32.2 pg MCH 30.0 LAB MCHC(LOINC 32.3-36.5 % ) MCHC 33.5 LAB RDW(LOINC) 11.6-14.4 % RDW High 15.8 LAB RDWSD(LOIN 36.1-45.8 fl C) RDW SD High 51.8 LAB PLT(LOINC) 141-365 thou/cmm Platelet 295 LAB MPV(LOINC) 8.7-12.0 fl MPV 10.0 LAB SEG(LOINC) % Seg Neutrophil 75.0 LAB IGRE(LOINC % ) Immature Grans 0.40 LAB LYMPH(LOIN % C) Lymphocyte 17.0 LAB MNO(LOINC) % Monocyte 7.3 LAB EOSIN(LOIN % C) Eosinophil 0.1 LAB BASO(LOINC % ) Basophil 0.2 LAB SEGN(LOINC 1.78-5.38 thou/cmm ) Abs. High Neut (ANC) 7.73 LAB IGAB(LOINC 0.00-0.05 thou/cmm ) Abs Immature Grans 0.04 LAB LYMN(LOINC 0.84-2.85 thou/cmm ) Abs. Lymph 1.75 LAB MONON(LOIN 0.30-0.82 thou/cmm C) Abs. [place] 0.75 LAB EOSN(LOINC 0.04-0.54 thou/cmm ) Low Abs. Eosin 0.01 LAB BASON(LOIN 0.01-0.08 thou/cmm C) Abs. Baso 0.02 Performed By: #### CBCD1 #### [facility] [address] [address] [address] ABDOMEN AND PELVIS Observed: 11/18/2017 Status: F Source: [facility] WITH CONTRAST 10:51 AM HEALTH SYSTEM REPOSITORY Performed at [facility] APPROVED BY: Lisa Jorge MD Exam: CT of the abdomen and pelvis with contrast dated 11/18/2017 10:37. Indication: Abdominal pain after a fall onto colostomy. Comparison: 08/09/2017. Technique: Helically acquired CT images were obtained from the lung bases to the upper thighs following the administration of 150 mL of Omnipaque intravenous contrast and reconstructed to a slice thick ness of 3.75 mm. Coronal and sagittal reformatted images were obtained. CT Radiation Dose: Integrated Dose-length product (DLP) = 698.06 mGy*cm. CT Dose Reduction Employed: Automated Exposure Control (AEC). Findings: Evaluation of the lower chest reveals a few small calcified granulomas in the lung bases, which are otherwise clear. There is diffuse thickening of the left adrenal gland, unchanged. The liver, gallbladder, spleen, pancreas, and right adrenal gland are normal in appearance. There is a 2.3 cm low density within the mid left kidney and a 1.2 cm low density in the lower left kidney, which appear unchanged. There is a 7 mm low density within the upper right kidney, which also appears unchanged. There is no evidence of hydronephrosis or hydroureter. There is a right upper quadrant diverting colostomy with a large parastomal hernia containing small bowel loops. There is no evidence of small bowel obstruction. Extensive sigmoid colonic diverticulosis present. The bladder appears nondistended. The prostate is enlarged measuring 6.2 cm in transverse dimension. Scattered vascular calcifications are present. No lymphadenopathy, significant free fluid, or organized fluid collections are appreciated. Bone windows demonstrate no suspicious lytic or sclerotic lesions. Multilevel degenerative changes present in the spine. IMPRESSION: 1. No acute abnormality identified in the abdomen or pelvis. 2. Right upper quadrant colostomy with parastomal hernia containing small bowel loops. 3. No evidence of small bowel obstruction. 4. Sigmoid colonic diverticulosis. ED NOTE Observed: 11/18/2017 Status: COMPLETED Source: [place] 10:28 AM [facility] REPOSITORY HNO ID: [id number] Author: Rebecca Laurent RN Service: Emergency Medicine Author Type: Registered Nurse Type: ED Notes Filed: 11/18/2017 10:28 AM Note Text: Urine specimen sent to lab. URINALYSIS ROUTINE Collected: 11/18/2017 Status: F Source: [facility] 10:25 AM HEALTH SYSTEM REPOSITORY TYPE CODE TESTS RESULT OUT OF RANGE REFERENCE UNITS LAB COLOR(LOIN C) Urine Color YELLOW LAB APPUR(LOIN C) Urine Appearance CLEAR LAB GLUUR(LOIN Negative mg/dL C) Glucose Urine NEGATIVE LAB KETON(LOIN Negative mg/dL C) Ketone Urine NEGATIVE LAB HGBUR(LOIN Negative C) Hemoglobin,Urin NEGATIVE e LAB PROTU(LOIN Negative mg/dL C) Abnormal Protein Urine 300 LAB NITRI(LOIN Negative C) Nitrites Urine NEGATIVE LAB BILIU(LOIN Negative C) Bilirubin Urine NEGATIVE LAB SPG(LOINC) 1.005-1.030 Specific 1.022 Morris, Ur LAB PHUR(LOINC 5.0-8.0 ) pH,Urine 6.5 LAB UROBI(LOIN 0.0-1.0 EU/dL C) Urobilinogen,Ur 0.2 LAB LEUKO(LOIN Negative C) Leukocytes NEGATIVE Esterase LAB RBCU1(LOIN 0.0-5.0 /hpf C) High RBC,Urine 7.9 LAB WBCU1(LOIN 0.0-5.0 /hpf C) WBC, Urine 0.8 LAB EPIT1(LOIN 0.0-5.0 /hpf C) Ep Cells Urine 0.5 LAB BACT1(LOIN None C) Bacteria Urine NONE LAB HYCA1(LOIN 0.0-1.0 /lpf C) High Hyaline Cast 1.2 Performed By: #### URIN2 #### [facility] [address] [address] ED NOTE Observed: 11/18/2017 Status: COMPLETED Source: [place] 10:24 AM [facility] [place] REPOSITORY HNO ID: [id number] Author: Rebecca Laurent RN Service: Emergency Medicine Author Type: Registered Nurse Type: ED Notes Filed: 11/18/2017 10:24 AM Note Text: Pt to CT at this time. ED NOTE Observed: 11/18/2017 Status: COMPLETED Source: [place] 10:12 AM [facility] REPOSITORY HNO ID: [id number] Author: Rebecca Laurent, MITCHELL Service: Emergency Medicine Author Type: Registered Nurse Type: ED Notes Filed: 11/18/2017 10:12 AM Note Text: CT/XR called for at this time. ED NOTE Observed: 11/18/2017 Status: COMPLETED Source: [place] 10:08 AM [facility]AMP[facility] REPOSITORY HNO ID: [id number] Author: Rebecca Quiñonesningham, RN Service: Emergency Medicine Author Type: Registered Nurse Type: ED Notes Filed: 11/18/2017 10:08 AM Note Text: Pt provided with urinal at this time for urine specimen. ECU TROPONIN I Collected: 11/18/2017 Status: F Source: [facility] 10:01 AM HEALTH SYSTEM REPOSITORY TYPE CODE TESTS RESULT OUT OF REFERENCE UNITS RANGE LAB ERTRP(LOINC 0.015-0.045 ng/ml ) ECU Troponin I < 0.015 Performed By: #### ERTRP #### [facility] [address] [address] COMPREHENSIVE PANEL Collected: 11/18/2017 Status: F Source: [facility] 10:01 AM HEALTH SYSTEM REPOSITORY TYPE CODE TESTS RESULT OUT OF REFERENCE UNITS RANGE LAB NA(LOINC) 136-145 mEq/L Low Sodium Blood 133 LAB K(LOINC) 3.5-5.1 mEq/L High Potassium Blood 5.2 Result Comment: SPECIMEN SLIGHTLY HEMOLYZED LAB CL(LOINC) 98-107 mEq/L Chloride Blood 103 LAB CO2(LOINC) 21-32 mEq/L CO2 Blood 24 LAB GLU(LOINC) 70-99 mg/dL Glucose High Blood 110 LAB BUN(LOINC) 7-18 mg/dL BUN Blood 14 LAB CREA(LOINC) 0.67-1.17 mg/dL Creatinine Blood 0.74 LAB CA(LOINC) 8.5-10.1 mg/dL Calcium Blood 9.3 LAB ALB(LOINC) 3.4-5.0 g/dL Albumin Blood 3.7 LAB TP(LOINC) 6.4-8.2 g/dL Total Protein 8.1 LAB AST(LOINC) 9-37 U/L AST-SGOT High Blood 53 Result Comment: SPECIMEN SLIGHTLY HEMOLYZED LAB ALT(LOINC) 12-78 U/L ALT-SGPT Blood 41 LAB ALKP(LOINC) 46-116 U/L Alk Phosphatase 90 LAB BILIT(LOINC) 0.2-1.0 mg/dL Total Bilirubin 0.5 LAB ANGAP(LOINC) 8-16 Anion Gap 11 Performed By: #### P14 #### [place] [address] LIPASE BLOOD Collected: 11/18/2017 Status: F Source: [facility] 10:01 AM HEALTH SYSTEM REPOSITORY TYPE CODE TESTS RESULT OUT OF REFERENCE UNITS RANGE LAB LIP(LOINC) 73-393 U/L Low Lipase Blood 64 Performed By: #### LIP #### [facility] [address] [address] MDRD GFR Collected: 11/18/2017 Status: F Source: [facility] 10:01 AM HEALTH SYSTEM REPOSITORY TYPE CODE TESTS RESULT OUT OF RANGE REFERENCE UNITS LAB GFRFN(LOINC >60mL/min/1.73m ) 2 eGFR >60 Result Comment: If the patient is , multiply the result by 1.210. Performed By: #### GFR #### [facility] [address] [address] LACTIC ACID Collected: 11/18/2017 Status: F Source: [facility] 10:01 HEALTH SYSTEM REPOSITORY TYPE CODE TESTS RESULT OUT OF REFERENCE UNITS RANGE LAB LAC(LOINC) 0.4-2.0 mEq/L High alert Lactic Acid 2.1 Performed By: #### LAC #### [facility] [address] [address] ED NOTE Observed: 11/18/2017 Status: COMPLETED Source: [place] 9:43 AM [facility] REPOSITORY HNO ID: [id number] Author: Rebecca KingRnBeth Laurent RN Service: Emergency Medicine Author Type: Registered Nurse Type: ED Notes Filed: 11/18/2017 9:43 AM Note Text: Unable to place IV x 2 attempts. ED PROV NOTE Observed: 11/18/2017 Status: COMPLETED Source: [place] 9:41 AM [facility] [place] REPOSITORY HNO ID: [id number] Author: Kajal Laurent MD Service: Emergency Medicine Author Type: Physician Type: ED Provider Notes Filed: 11/18/2017 9:44 AM Note Text: The patient has a long-standing colostomy. He fell on to his abdomen and feels that it is popped out. According to his old chart, this is happened multiple times in the past. His chest is clear. He does have a colostomy in the right side of the abdomen stones of which is pink. There is no visible blood in stool. He has no palpable tenderness over the cervical spine or back. His extremities are nontender with full range of motion. According to his old chart, this is a recurring chronic problem. After we assess his laboratory studies, we will attempt to reduce it. I anticipate that we will be able to discharge him back to home. Kajal Laurent MD 11/18/17 0944 ED PROV NOTE Observed: 11/18/2017 Status: COMPLETED Source: [place] 9:20 AM CLINIC OTHER CAMPUS REPOSITORY O ID: [id number] Author: Kajal Laurent MD Service: Emergency Medicine Author Type: Physician Type: ED Provider Notes Filed: 11/18/2017 1:30 PM Note Text: ED Provider Note Patient Name: Maxx Knott SERVICE DATE: 11/18/17 History Patient presents with: Fall: The patient states that he fell this morning on his colostomy. The patient complains of right lower abdominal pain from this. The patient also states he is having a hard time breathing. 67 year old male with a history of sigmoid diverticulitis c/b perforation s/p diverting loop transverse colostomy with a known reducible peristomal hernia and prolapsing stoma with recurrent presentations for prolapsing stoma and chronic narcotic use who presents today with complaints of abdominal pain particularly on his stoma site after a fall when trying to get out of bed. Patient states his foot got caught in the bedding and he tripped falling face forward landing on his chest and abdomen and is complaining of pain and soreness in these areas since the fall which occurred around 6 AM this morning. Denies head injury or loss of consciousness. Denies other areas of injury, no neck or back pain. States his hernia popped out at this time and that normally it is not like this, however review of records shows multiple prior presentations with the same complaint and I also recognize the patient from having seen him a prior visit. He denies nausea, vomiting since the incident. States his colostomy is still making stool. Denies shortness of breath. Denies anticoagulant use. The patient was most recently admitted on 11/04/17 for CHF exacerbation and at the time also had this stomal hernia was easily reduced after application of sucrose. Denies other complaint. 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 - Peritonitis ([facility]) PAST SURGICAL HISTORY Procedure Laterality Date - APPENDECTOMY HX - COLOSTOMY 07/2016 Diverting Loop Colostomy of the Transverse Colon - HEART SURGERY HX triple bypass 10 yrs ago - PPM IMPLANT - STENT - CORONARY FAMILY HISTORY Problem Relation Age of Onset - Coronary Artery Disease Father - Hyperlipidemia Father Social History Social History Main Topics - Smoking status: Current Every Day Smoker Packs/day: 0.50 Years: 35.00 Types: Pipe, Cigarettes - Smokeless tobacco: Never Used Comment: Quit cigarettes 11-16-16 now smoking 4 pipes as of 04-18-17 - Alcohol use No - Drug use: No - Sexual activity: Not Currently ALLERGIES Allergen Reactions - Altaseptic Unknown - Brilinta [Ticagrelo* Unknown - Crestor [Rosuvastat* Myalgia - Hctz [Amiloride-Hyd* Swelling - Moxifloxacin Swelling - Other [place]-3s Unknown brelinta - Ramipril Swelling Other reaction(s): Facial swelling - Simvastatin Myalgia Other reaction(s): Facial swelling - Voltaren [Diclofena* Unknown Review of Systems Constitutional: Negative for chills and fever. HENT: Negative for trouble swallowing and voice change. Eyes: Negative for pain and redness. Respiratory: Negative for cough and shortness of breath. Cardiovascular: Positive for chest pain. Negative for palpitations. Gastrointestinal: Positive for abdominal pain. Negative for blood in stool, diarrhea, nausea and vomiting. Endocrine: Negative for cold intolerance and heat intolerance. Genitourinary: Negative for dysuria and frequency. Skin: Negative for color change and rash. Neurological: Negative for light-headedness and headaches. All other systems reviewed and are negative. Physical Exam BP 180/71 Pulse 97 Temp (Src) 98.1 (Oral) Resp 18 Ht 5' 8 (1.73m) Wt 190 lb (86.2kg) SpO2 100% BMI 28.90 kg/(m2). Physical Exam Constitutional: He is oriented to person, place, and time. He appears well-developed and well-nourished. No distress. HENT: Head: Normocephalic and atraumatic. Right Ear: External ear normal. Left Ear: External ear normal. Mouth/Throat: Oropharynx is clear and moist. Eyes: Conjunctivae are normal. Pupils are equal, round, and reactive to light. Neck: Normal range of motion. Neck supple. No JVD present. No tracheal deviation present. No midline tenderness or step-offs Cardiovascular: Normal rate, regular rhythm, normal heart sounds and intact distal pulses. Exam reveals no gallop and no friction rub. No murmur heard. Pulmonary/Chest: Effort normal and breath sounds normal. No stridor. No respiratory distress. He has no wheezes. He has no rales. He exhibits tenderness. Abdominal: Soft. Bowel sounds are normal. He exhibits no distension. There is no rebound. Abdomen somewhat diffusely tender to palpation particularly over the stoma which has a moderate amount of prolapsed tissue which appears pink and healthy, brown stool in colostomy bag with no blood Musculoskeletal: Normal range of motion. He exhibits no deformity. No midline TLS tenderness or step-offs Neurological: He is alert and oriented to person, place, and time. No cranial nerve deficit. GCS eye subscore is 4. GCS verbal subscore is 5. GCS motor subscore is 6. Strength 5/5 x4, sensation intact x 4, no ataxia on finger to nose, no nystagmus, no visual field defects Skin: Skin is warm and dry. Capillary refill takes less than 2 seconds. No rash noted. He is not diaphoretic. Nursing note and vitals reviewed. Diagnostic Testing ED Labs Ordered and Reviewed - No data to display Procedures ED Course / Clinical Impression Clinical Impressions as of Nov 18 1252 Contusion of chest wall, unspecified laterality, initial encounter Parastomal hernia without obstruction or gangrene Abdominal pain, unspecified abdominal location MDM / Disposition / Plan 67-year-old male presents for abdominal chest pain after a fall onto his chest and abdomen. He also complains of peristomal hernia that occurred upon this fall. He is hemodynamic stable and well-appearing. Review of records shows chronic narcotic use and multiple ED visits with similar complaints. In the past peristomal hernia has been present and often easily reducible. Patient given Toradol for pain, but still requesting additional pain medication. Labs without significant abnormality aside from potassium of 5.2 which was slightly hemolyzed and lactic acid of 2.1 likely due to his diuretic use. He has no external evidence of trauma. No head injury or loss of consciousness with no neck or back pain to suggest imaging of these areas. Chest x-ray shows no acute process. CT abdomen and pelvis shows no acute process and no evidence of bowel obstruction nor incarceration of hernia. I did offer reduction, however patient declined stating the area is too sensitive. I had a thorough discussion with the patient why we will not use narcotic pain medications at this time given his history of multiple visits for same and multiple narcotic prescriptions from multiple providers. I did offer application of ice or sucrose and lying the patient declined to allow spontaneous reduction, however he declined. I recommended follow-up with surgeon. Return precautions discussed. Disposition The patient was discharged. Counseled patient regarding lab results, radiology results and suspected diagnosis. As well as the need for follow-up. Discharged home with verbal and written instructions. They were instructed to return as needed for persistent or worsening symptoms or any new concerns. Condition at disposition is stable. SIGNATURE: MD Niki Orourke (Res) MD Kiran Resident 11/18/17 1256 Attending Note I evaluated the patient and personally participated in the nelson components. I agree with the resident's findings and plan as documented and have discussed the case and management of the patient's care with the resident. Signature: Kajal Laurent MD Date: 11/18/2017 Time: 1:30 PM Kajal Laurent MD 11/18/17 1330 ED NOTE Observed: 11/18/2017 Status: COMPLETED Source: [place] 8:47 AM [facility] [place] REPOSITORY HNO ID: [id number] Author: Rebecca Laurent RN Service: Emergency Medicine Author Type: Registered Nurse Type: ED Notes Filed: 11/18/2017 8:47 AM Note Text: Pt from home and arrives alert and oriented x 3. Pt states he tripped and fell this morning onto abdomen. Pt with colostomy and has increased protrusion of stoma. EKG Observed: 11/18/2017 Status: F Source: [place] 8:36 AM CLINIC OTHER CAMPUS REPOSITORY NAME : MAXX KNOTT PID : [id number] : 1950 Gender : Male Race : ORD : Procedure Date : Nov 18 2017 08:36 Edit Date : Nov 18 2017 11:36 Diagnosis:NORMAL SINUS RHYTHM POSSIBLE LEFT ATRIAL ENLARGEMENT BORDERLINE ECG WHEN COMPARED WITH ECG OF 22-SEP-2017 16:20, VENT. RATE HAS INCREASED BY 36 BPM T WAVE INVERSION NO LONGER EVIDENT IN ANTERIOR LEADS Confirmed by MD Laurent Carol ([id number]) on 11/18/2017 11:36:15 AM Ventricular Rate : 98 BPM Atrial Rate : 98 BPM P-R Interval : 164 ms QRS Duration : 98 ms Q-T Interval : 360 ms QTC Calculation(Bezet) : 459 ms P [place] : 66 degrees R [place] : 54 degrees T [place] : 58 degrees Test Reason : Location : 4 : [place] CHAR Overread By : MD Laurent Carol Editted By : MD Laurent Carol Referred By : , Acquired by : Char Hanks EMERGENCY DEPARTMENT Observed: 11/17/2017 Status: F Source: [place] [facility] 4:27 PM [facility] REPOSIT[facility] Medical Records Department [address] [place] [address] Emergency Department Summary 11/17/17 0941 MR#: [id number] Acct: [id number] Name: MAXX KNOTT Rep #: [id number] : 1950 67 From: Verenice Shell MD PCP: [facility], [place] Status: DEP ER - ER Visit Summary Date of Service: 11/17/17 Chief Complaint: Colostomy problem History of Present Illness: The patient is a 67 M with a 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 Patient states he fell this morning and bowel prolapse into the ostomy bag. He is scheduled for reversal of the colostomy next month at [facility]. Physical Examination: Vital signs significant for blood pressure 179/102. Patient sitting upright in bed. He is appears uncomfortable but he is in no acute distress. Heart is regular rate and rhythm. Lung sounds are clear. Abdomen is soft with moderate diffuse tenderness palpation. There is no guarding or rebound. He does have prolapsed bowel into the colostomy bag. Test Results: [] Emergency Department Course and Treatment: IV line was not able to be established. He was given IM Dilaudid and Zofran. Is able to reduce the herniated bowel but it did re-herniate. He was given additional dose of Dilaudid IM. Bowel loops were reduced and pressure was held. At this time it is maintaining reduction. An abdominal binder was placed. Patient is to follow-up with his surgeon in [place]. Treatment Plan: [] Disposition: Discharge Impression: Bowel herniation at colostomy site, reduced This note was generated with Atos[employer] dictation software. It may contain incorrect words, spelling, and punctuation that were not noted in review of the chart prior to signing ED Disposition - Plan for ED Patient: Chief Complaint: Abd Pain Referrals: [facility],[place] [Primary Care Provider] - What to do if you have Problems For any increased pain, shortness of breath, bleeding, nausea or vomiting, chest pain, or any unexpected problems, contact your Primary Care Provider. Call [facility] ([phone]) or report to the closest Emergency Room. Call 911 if necessary. 11/17/17 1627 <Electronically signed by Verenice Shell MD> Date Verenice Shell MD Cosigner Signature (If Indicated): Date CC: [place] [facility] DISCHARGE INSTRUCTION Observed: 11/17/2017 Status: F Source: [place] 12:59 PM [facility] RE[facility] Medical Records Department [address] [place] [address] Discharge Instruction 11/17/17 1255 MR#: [id number] Acct: [id number] Name: MAXX KNOTT Rep #: [id number] : 1950 67 From: Verenice Shell MD PCP: [facility], [place] Status: REG ER ED Disposition - Plan for ED Patient: Disposition: Home or Assisted Living Chief Complaint: Abd Pain Instructions: Colostomy: Answers to Common Questions Prescriptions: Hydrocodone Bitart/Apap 5-325 [[place] 5MG-325MG] 1 tablet PO Q4H PRN PRN 2 Days #10 tablet PRN Reason: Pain Referrals: [facility] [Primary Care Provider] - Additional Instructions: Follow-up with your surgeon in [place] as soon as possible. What to do if you have Problems For any increased pain, shortness of breath, bleeding, nausea or vomiting, chest pain, or any unexpected problems, contact your Primary Care Provider. Call [facility] ([phone]) or report to the closest Emergency Room. Call 911 if necessary. 11/17/17 1259 <Electronically signed by Verenice Shell MD> Date Verenice Shell MD Cosigner Signature (If Indicated): Date CC: [facility] [email or web address] Observed: 11/13/2017 Status: UNK Source: [facility] 4:06 PM CENTER [facility] Patient Name: MAXX KNOTT [address] [employer] Date of : [address] [place] [address] Unit Number: [id number] Prog/Sign Off Note-Hospitalist Patient Status: ADM Wilmer Attending Doctor: Fernie Segundo DO Service Date: 11/13/17 1606 Subjective S: (2 ROS minimum) 67-year-old male past medical history significant for hypertensive heart failure COPD coronary artery disease status post CABG, diverticulitis status post colostomy follows up with cardiology at the clinic clinic brought into the hospital for evaluation of chest pain. Cardiogenic consulted. Stress test showed EF of 32%. Discussed with by poorly. No further recommendation. D-dimer is slightly elevated. Patient denies any pleuritic chest pain no hemoptysis. CT angios was ordered but patient refused to have IV access placed. Duplex of the lower extremities pending if negative patient will be discharged home. He remained chest pain-free. Objective (ROS) Nursing Vitals Vital Signs (Last) Result Date Time Pulse Ox 94 11/13 1500 B/P 132/54 11/13 1500 Temp 98.1 11/13 1500 Pulse 71 11/13 1500 Resp 20 11/13 1500 FiO2 21 11/13 0847 O2 Delivery CPAP 11/12 2306 O2 Flow Rate RA 11/12 2300 Physical Exam Physical Examination Notes Gen. awake alert oriented 1 HEENT EOMI, when necessary, atraumatic normocephalic Neck supple no JVD Lungs clear to auscultation bilaterally wheezes rhonchi Cardiovascular normal S1-S2 regular rate and Abdomen soft colostomy in place draining well Extremities positive edema trace FLAP MAKER no focal deficit Diagnostic Data: Lab 24hr (CBC/BMP Fishbone) 11/13/17 0735: D-Dimer 460.0 H 11/13/17 0522: D-Dimer Cancelled 11/12/17 1621: D-Dimer Cancelled Assessment and Plan Conclusion 1. Chest pain Plan chest pain, stress test EF 33%, no further recommendation per cardiology. Patient refused the NG tube, check a duplex CAD sp CABG, check d dimer sp COLOSTOMY HO DIVERTICULITIS htn YUSUF on CPAP COPD withoutexacerbation Prolapse colostoly pt has appointment at [facility] to address this, advised to keep appointment post disharge Disclaimer This dictation was created using voice recognition software. Phonetic and/or minor grammatical errors may exist. eSign Date and Time Sarah Mauro MD Verified/Reviewed by 11/13/17 1609 VLVD Observed: 11/13/2017 Status: UNK Source: [facility] 3:42 PM [facility] Patient: MAXX KNOTT Account [id number] Ordering Phy: MR: [id number] Reason for Visit: CHEST PAIN,CHRONIC PROLAPSE OF COLOSTOMY Date of Service 11/13/17 Reading Physician: Jerry Ahn MD Right: Duplex ultrasound evaluation of the right lower extremity from the level of the calf to the level of the common femoral vein shows compressible and compliant vessels throughout the deep and superficial venous system. Color and spectral Doppler waveform analysis of the deep and superficial venous system demonstrates spontaneous, phasic, and augmented flow with no evidence of reflux in the saphenofemoral junction. Left: Duplex ultrasound evaluation of the left lower extremity from the level of the calf to the level of the common femoral vein shows compressible and compliant vessels throughout the deep and superficial venous system. Color and spectral Doppler waveform analysis of the deep and superficial venous system demonstrates spontaneous, phasic, and augmented flow with no evidence of reflux in the saphenofemoral junction. Conclusions: No evidence of deep vein thrombosis (DVT) or superficial vein thrombosis in bilateral lower extremities. CC: Fernie Segundo DO Abbreviated Final Report. Full Report is available via link to [employer] in [facility] under [facility] Lab Image Viewer. [facility] PATIENT NAME: MAXX KNOTT [facility] MEDICAL REC #: [id number] [place] [address] ADMIT DATE: 11/11/17 DISCHARGE DATE: VENOUS DUPLEX REPORT ATTENDING PHY: Fernie Segundo DO Electronically Signed by: Jerry Ahn MD Esign Date: 11/13/17 PROG IMS Observed: 11/13/2017 Status: UNK Source: [facility] 11:46 AM [facility] Patient Name: MAXX KNOTT [facility] Date of : [address] [address] Unit Number: [id number] Progress Note-Hospitalist Patient Status: DIS Wilmer Attending Doctor: Sarah Mauro MD Service Date: 11/13/17 1146 Chief Complaint Chief Complaint chest pain Objective (ROS) Nursing Vitals Vital Signs (Last) Result Date Time FiO2 21 11/13 0847 Pulse Ox 97 11/13 0755 B/P 127/55 11/13 0755 Temp 97.8 11/13 0755 Pulse 63 11/13 0755 Resp 16 11/13 0755 O2 Delivery CPAP 11/12 2306 O2 Flow Rate RA 11/12 2300 Diagnostic Data: Lab 24hr (CBC/BMP Fishbone) 11/13/17 0735: D-Dimer 460.0 H 11/13/17 0522: D-Dimer Cancelled 11/12/17 1621: D-Dimer Cancelled Assessment and Plan Conclusion 1. Chest pain Plan chest pain, follow result of stress test, seen by cardiology Dr. Rosario, appreciate inpout CAD sp CABG, check d dimer sp COLOSTOMY HO DIVERTICULITIS htn YUSUF on CPAP COPD withoutexacerbation Prolapse colostoly pt has appointment at [facility] to address this, advised to keep appointment post disharge Disclaimer This dictation was created using voice recognition software. Phonetic and/or minor grammatical errors may exist. eSign Date and Time Sarah Mauro MD D-DIMER Collected: 11/13/2017 Status: F Source: [facility] 7:35 AM [facility] REPOSITORY Order Comment: REDRAW, ORIGINAL TUBE WAS CLOTTED, NOTIFIED ASHER ON 7 MAIN. TYPE CODE TESTS RESULT OUT OF RANGE REFERENCE UNITS LAB L300.50585 0-450 ng/mlFEU High D-DIMER 460.0 Result Comment: This test has been validated for the exclusion of Deep Vein Thrombosis and Pulmonary Embolism, with a cut-off of 450 ng/ml/FEU. Results should be interpreted in conjunction with the patient's medical history, clinical presentation and other findings. D-Dimer is elevated in DVT, PE and DIC. However, an increased D-Dimer can be seen in other clinical conditions and should not be used as a confirmatory diagnostic marker. Performed By: #### [id number] #### [facility] [address] [place] [address]# [phone] [email or web address].[email or web address] Observed: 11/12/2017 Status: UNK Source: [facility] 2:47 PM [facility] REPOSITORY [facility] Patient Name: MAXX KNOTT [address] [place] [address] Date of : [address] [address] Unit Number: [id number] Regadenoson SPECT Patient Status: DIS Wilmer Attending Doctor: Sarah Mauro MD Service Date: 11/12/17 1447 Regadenoson SPECT Study Date 11/12/17 Vitals Age: 67 years old Gender: Male Height: 5 feet 8 inches Weight: 194.00 pounds Blood Pressure: 134/80 Heart Rate: 62 Clinical Indication: cp Technique: Myocardial perfusion imaging was performed at rest following the injection of [13] mCi of Tc99m SESTAMIBI. The patient was given 0.4 mg of Regadenoson IV. At peak pharmacologic effect, the patient was injected with [33] mCi of Tc99m SESTAMIBI. Gating post-stress tomographic imaging was performed at least 30 minutes following pharmacologic stress. Imaging: The overall imaging quality is satisfactory. Left ventricular size dilated EDV [207] mL. SPECT multiplanar images demonstrate fixed inferior defect. Gated SPECT imaging reveals abnormal inferior wall motion and thickening. The left ventricular ejection fraction is calculated at [33]%. Impression: 1.Inferior scar 2. Reduced left ventricular systolic function. Disclaimer This dictation was created using voice recognition software. Phonetic and/or minor grammatical errors may exist. eSign Date and Time Kristofer Fernandez Verified/Reviewed by 11/16/17 1110 [email or web address].SUM Observed: 11/12/2017 Status: UNK Source: [facility] 11:44 AM CENTER [facility] Patient Name: MAXX KNOTT [address] [employer] [facility] Date of : [address] [address] Unit Number: [id number] Discharge Summary Patient Status: ADM Wilmer Attending Doctor: Fernie Segundo DO Service Date: 11/12/17 1144 Discharge Summary Consults Cardiology Labs/Imaging Lab 72hr (CBC/BMP [facility]) 11/12/17 0556: Troponin I Less than 0.015 11/12/17 0556: Triglycerides 273 H, Cholesterol 176, LDL Cholesterol 91, HDL Direct 31 L 11/11/17 2320: Troponin I Less than 0.015 11/11/17 1553: Troponin I Cancelled 11/11/17 1517: Magnesium 2.1 11/11/17 1517: [Embedded Image Not Available] Anion Gap 8, Est GFR ( Amer) Greater than 60, Est GFR (Non-Af Amer) Greater than 60 , BUN/Creatinine Ratio 23, Glucose 99, Total Calcium 9.0, Total Bilirubin 0.2, Direct Bilirubin 0.09, AST 25, ALT 59, Alkaline Phosphatase 88, Serum Total Protein 6.6, Albumin 3.6, Globulin 3.0, Albumin/Globulin Ratio 1.2, Lipase 66 L 11/11/17 1445: POC Troponin I 0.02 11/11/17 1439: [Embedded Image Not Available] Sodium Cancelled, Potassium Cancelled, Chloride Cancelled, Carbon Dioxide Cancelled, Anion Gap Cancelled, BUN Cancelled, Creatinine Cancelled, BUN/Creatinine Ratio Cancelled, Glucose Cancelled, Total Calcium Cancelled, Total Bilirubin Cancelled, Direct Bilirubin Cancelled, AST Cancelled, ALT Cancelled, Alkaline Phosphatase Cancelled, Serum Total Protein Cancelled, Albumin Cancelled, Globulin Cancelled, Albumin/Globulin Ratio Cancelled , Lipase Cancelled, RBC 4.72, MCV 87.5, MCHC 33.9, RDW 15.3 H, MPV 10.4, Immature Gran % ( Auto) 0.5, Abs Immat Gran (auto) 0.10, Seg Neutrophils % 69.4, Lymphocytes % 19.3 L, Monocytes % 7.9, Eosinophils % 2.4, Basophils % 0.5, Neutrophils # 7.30, Lymphocytes # 2.00, Monocytes # 0.80, Eosinophils # 0.30, Basophils # 0.10, Nucleated RBCs 0.0 Recent Impressions (72hr) RADIOLOGY - PORTABLE CHEST 11/11 1335 Report Impression - Status: SIGNED Entered: 11/11/2017 1400 IMPRESSION: Postoperative changes status post median sternotomy and interval placement of dual chambered pacemaker. No acute abnormalities are seen. Impression By: HUGH GIRALDO M.D. Prescriptions Continue taking these medications: Losartan Potassium* (Cozaar Tab*) 100 MG TABLET 100 MILLIGRAM ORAL EVERY DAY Furosemide* (Lasix 40MG Tab*) 40 MG TABLET 40 MILLIGRAM ORAL EVERY DAY NEEDED as needed for SWELLING Multivitamin* (Multiple Vitamins Daily Tab*) 1 EACH TABLET 1 TABLET ORAL EVERY DAY Nitroglycerin* (Nitrostat 0.4MG Tab Sl*) 0.4 MG TAB.SUBL 0.4 MILLIGRAM SUBLINGUAL EVERY 5 MINUTES NEEDED as needed for CHEST PAIN Albuterol Sulfate (Proair Hfa Inhaler) 8.5 GM HFA.AER.AD 2 PUFFS INHALATION* EVERY 4 HOURS NEEDED as needed for SHORTNESS OF BREATH metoprolol SUCCINATE* (Toprol XL 50MG Tab SA*) 50 MG TAB.ER.24H 100 MILLIGRAM ORAL AT BEDTIME Aspirin* (Aspir 81 MG Tab*) 81 MG TABLET.DR 81 MILLIGRAM ORAL DAILY WITH A MEAL QUEtiapine FUMARATE* (Seroquel Tab*) 400 MG TABLET 400 MILLIGRAM ORAL AT BEDTIME amLODIPine BESYLATE* (Norvasc Tab*) 10 MG TABLET 10 MILLIGRAM ORAL EVERY DAY Gabapentin* (Neurontin 300MG Cap*) 300 MG CAPSULE 600 MILLIGRAM ORAL AT BEDTIME Loratadine* (Claritin 10MG Tab*) 10 MG TABLET 10 MILLIGRAM ORAL EVERY DAY NEEDED as needed for ALLERGIES Cyclobenzaprine HCl* (Flexeril 10MG Tab*) 10 MG TABLET 10 MILLIGRAM ORAL AT BEDTIME Pravastatin Sodium* (Pravachol 40MG Tab*) 40 MG TABLET 40 MILLIGRAM ORAL AT BEDTIME Vitamin B Complex (B Complex) 1 EACH CAPSULE 1 EACH ORAL EVERY DAY oxyCODONE HCL/ACETAMINOPHEN* (percoCET 5-325 TAB*) 1 EACH TABLET 1 UDTAB ORAL 3 TIMES DAILY NEEDED as needed for PAIN Albuterol Sulfate 0.083% 2.5MG/3ML Ud* (Albuterol Sulfate 0.083% 2.5MG/3ML Ud*) 2.5 MG/3 ML VIAL.NEB 2.5 MILLIGRAM INHALATION* EVERY 4 HOURS NEEDED as needed for SHORTNESS OF BREATH Condition: Stable Disposition Home Phys Discharge Time Incur(Min) 32 Disclaimer This dictation was created using voice recognition software. Phonetic and/or minor grammatical errors may exist. eSign Date and Time Sarah Mauro MD PROG IMS Observed: 11/12/2017 Status: UNK Source: [facility] 11:34 AM [facility] Patient Name: MAXX KNOTT [address] [employer] [address] Date of : [address] [place], [place] [address] Unit Number: [id number] Progress Note-Hospitalist Patient Status: ADM Wilmer Attending Doctor: Fernie Segundo DO Service Date: 11/12/17 1134 Chief Complaint Chief Complaint chest pain Subjective S: (2 ROS minimum) pt seen and examined, still co dull pain left side of chest, denies any nausea, vomiitng, headahce, dizines,, fever, chills, tingling, numbness, weakness, Objective (ROS) Nursing Vitals Vital Signs (Last) Result Date Time FiO2 21 11/13 0847 Pulse Ox 97 11/13 0755 B/P 127/55 11/13 0755 Temp 97.8 11/13 0755 Pulse 63 11/13 0755 Resp 16 11/13 0755 O2 Delivery CPAP 11/12 2306 O2 Flow Rate RA 11/12 2300 Physical Exam Physical Examination Notes gen awake, alert, o x4 HEENT EOMI, PERRLA, atraumatic, normocephalic Neck supple, no JVP, thyromegaly RS CTAB, no wheezes, ronchi CVS S1,S2,RRR, no M/G GI abd soft, NT, ND+BS+colostomy drainaging ext +EDEMA, no cyanosis, clubbing Diagnostic Data: Lab 24hr (CBC/BMP Fishbone) 11/13/17 0735: D-Dimer 460.0 H 11/13/17 0522: D-Dimer Cancelled 11/12/17 1621: D-Dimer Cancelled Assessment and Plan Conclusion 1. Chest pain Plan chest pain, follow result of stress test, seen by cardiology Dr. Rosario, appreciate inpout CAD sp CABG, check d dimer sp COLOSTOMY HO DIVERTICULITIS htn YUSUF on CPAP COPD withoutexacerbation Prolapse colostoly pt has appointment at [facility] to address this, advised to keep appointment post disharge Disclaimer This dictation was created using voice recognition software. Phonetic and/or minor grammatical errors may exist. eSign Date and Time Sarah Mauro MD Verified/Reviewed by 11/13/17 1217 CONS.CARD Observed: 11/12/2017 Status: UNK Source: [facility] 8:07 AM [facility] Patient Name: MAXX KNOTT [address] [employer] 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 Troponins have been negative. EKG shows some ST depression. Past Medical/Surgical Hx Medical Records Reviewed Yes Past Medical History Summary CHF, cOPD, CAD s/p CABG, PPM, HTN, chronic back pain, Yusuf, anxiety,depression, HPL, diverticulitis, enlarge prostate Past Surgical History Summary Colostomy, currently prolapsed, follows with [facility] PPM CABG appendectomy Family/Social History Family History MOTHER, , Age 60+; Cause: Alzheimer disease. FH: Alzheimers disease FATHER, , Age 60+; Cause: Congestive heart failure. FH: congestive heart failure Relation not specified for: FH: deafness FH: heart attack FH: heart disease Substances Reports use of: Tobacco. Denies use of: Alcohol, Recreational Drugs. Social Hx Smoked 3/4 ppd x 45 years Allergies/Home Medications Allergies Coded Allergies: ATORVASTATIN (FACIAL SWELLING 02/23/16) MOXIFLOXACIN (DIFFICULTY BREATHING 02/22/16) DICLOFENAC (From VOLTAREN) (SICK 02/22/16) HYDROCHLOROTHIAZIDE (SICK 02/22/16) RAMIPRIL (From ALTACE) (SICK 02/22/16) ROSUVASTATIN (From CRESTOR) (SICK 02/22/16) SIMVASTATIN (NAUESEA and VOMITING 02/22/16) Home Medications Albuterol Sulfate 0.083% 2.5MG/3ML Ud* 2.5 MG/3 ML VIAL.NEB 2.5 MG INH Q4HPRN PRN SHORTNESS OF BREATH, Ref 0 (Reported) Entered as Reported by BESSY KEYS on 11/11/17 1608 Last Action: Continued on 11/11/17 1635 by CRYSTAL HERRERA Albuterol Sulfate (Proair Hfa Inhaler) 8.5 GM HFA.AER.AD 2 PUFF INH Q4HPRN PRN SHORTNESS OF BREATH, Ref 0 (Reported) Entered as Reported by JUSTUS RAYO on 07/04/16 1217 Last Taken: At an unknown date and time Last Action: Continued on 11/11/17 163 by CRYSTAL HERRERA amLODIPine BESYLATE* (Norvasc Tab*) 10 MG TABLET 10 MG PO QDAY, Ref 0 (Reported) Entered as Reported by JUSTUS RAYO on 07/04/16 1219 Last Taken: At an unknown date and time Last Action: Continued on 11/11/17 163 by CRYSTAL HERRERA Aspirin* (Aspir 81 MG Tab*) 81 MG TABLET.DR 81 MG PO QDAYWM, Ref 0 (Reported) Entered as Reported by JUSTUS RAYO on 07/04/16 1218 Last Taken: At an unknown date and time Last Action: Continued on 11/11/17 163 by CRYSTAL HERRERA Cyclobenzaprine HCl* (Flexeril 10MG Tab*) 10 MG TABLET 10 MG PO QHS, Ref 0 (Reported) Entered as Reported by JOVANI FAJARDO on 08/26/16 0050 Last Action: Continued on 11/11/17 163 by CRYSTAL HERRERA Furosemide* (Lasix 40MG Tab*) 40 MG TABLET 40 MG PO QDAYPRN PRN SWELLING, Ref 0 ( Reported) Entered as Reported by BART ROBISON on 02/22/16 0317 Last Taken: At an unknown date and time Last Action: Continued on 11/11/17 163 by CRYSTAL HERRERA Gabapentin* (Neurontin 300MG Cap*) 300 MG CAPSULE 600 MG PO QHS, Ref 0 (Reported) Entered as Reported by JUSTUS RAYO on 07/04/16 1221 Last Taken: At an unknown date and time Last Action: Continued on 11/11/17 163 by CRYSTAL HERRERA Loratadine* (Claritin 10MG Tab*) 10 MG TABLET 10 MG PO QDAYPRN PRN ALLERGIES, Ref 0 ( Reported) Entered as Reported by JUSTUS RAYO on 07/04/16 1223 Last Taken: At an unknown date and time Last Action: Continued on 11/11/17 1635 by CRYSTAL HERRERA Losartan Potassium* (Cozaar Tab*) 100 MG TABLET 100 MG PO QDAY, Ref 0 (Reported) Entered as Reported by BART ROBISON on 02/22/16 031 Last Taken: At an unknown date and time Last Action: Continued on 11/11/17 163 by CRYSTAL HERRERA metoprolol SUCCINATE* (Toprol XL 50MG Tab SA*) 50 MG TAB.ER.24H 100 MG PO QHS, Ref 0 ( Reported) Entered as Reported by JUSTUS RAYO on 07/04/16 1217 Last Taken: At an unknown date and time Last Action: Continued on 11/11/17 163 by CRYSTAL HERRERA Multivitamin* (Multiple Vitamins Daily Tab*) 1 EACH TABLET 1 TAB PO QDAY, Ref 0 ( Reported) Entered as Reported by BART ROBISON on 02/22/16317 Last Taken: At an unknown date and time Last Action: Continued on 11/11/17 163 by CRYSTAL HERRERA Nitroglycerin* (Nitrostat 0.4MG Tab Sl*) 0.4 MG TAB.SUBL 0.4 MG SL Q5MPRN PRN CHEST PAIN , Ref 0 (Reported) Entered as Reported by BART ROBISON on 02/22/16 0331 Last Taken: At an unknown date and time Last Action: Continued on 11/11/17 163 by CRYSTAL HERRERA oxyCODONE HCL/ACETAMINOPHEN* (percoCET 5-325 TAB*) 1 EACH TABLET 1 UDTAB PO TIDPRN PRN PAIN, Ref 0 (Reported) Entered as Reported by BESSY KEYS on 11/11/17 1606 Last Action: Continued on 11/11/17 163 by CRYSTAL HERRERA Pravastatin Sodium* (Pravachol 40MG Tab*) 40 MG TABLET 40 MG PO QHS, Ref 0 (Reported) Entered as Reported by ROSE RODRIGUEZ on 09/16/16 0946 Last Taken: At an unknown date and time Last Action: Continued on 11/11/17 163 by CRYSTAL HERRERA QUEtiapine FUMARATE* (Seroquel Tab*) 400 MG TABLET 400 MG PO QHS, Ref 0 (Reported) Entered as Reported by JUSTUS RAYO on 07/04/16 1219 Last Taken: At an unknown date and time Last Action: Continued on 11/11/171634 by CRYSTAL HERRERA Vitamin B Complex (B Complex) 1 EACH CAPSULE 1 EACH PO QDAY, Ref 0 (Reported) Entered as Reported by BESSY KEYS on 11/11/17 1603 Last Action: Held on 11/11/17 163 by CRYSTAL HERRERA Inpatient Medications Medications Current Sig/Medhat Start time Last Medication Dose Route Stop Time Status Admin Acetaminophen 650 MG Q4HPRN PRN 11/11 1600 AC (TYLENOL TAB) PO Albuterol Sulfate 2.5 MG Q4HPRN PRN 11/11 1700 AC (VENTOLIN/PROVENTIL INH 2.5MG/3ML INH.NEB) Albuterol/Ipratropium 3 ML QIDRT 11/11 1630 AC 11/11 (DUONEB 0.5-3 MG/3 INH 2037 ML INH.NEB) Albuterol/Ipratropium 3 ML Q2HPRN PRN 11/11 1630 AC (DUONEB 0.5-3 MG/3 INH ML INH.NEB) Amlodipine Besylate 10 MG QDAY 11/12 0900 AC (NORVASC TAB) PO Aspirin 81 MG QDAYWM 11/12 0800 AC (ECOTRIN TAB.EC) PO Cyclobenzaprine HCl 10 MG QHS 11/11 2200 AC 11/11 (FLEXERIL TAB) PO 212 Furosemide 40 MG QDAYPRN PRN 11/11 1700 AC (LASIX TAB) PO Gabapentin 600 MG QHS 11/11 2200 AC 11/11 (NEURONTIN CAP) PO 2122 Heparin Sodium 5,000 UNIT BID 11/11 2100 AC 11/11 (Porcine) SC 212 (HEPARIN D.SYR) Loratadine 10 MG QDAYPRN PRN 11/11 1700 AC (CLARITIN TAB) PO Losartan Potassium 100 MG QDAY 11/12 0900 AC (COZAAR 100MG TABLET) PO Metoprolol Succinate 100 MG QHS 11/11 2200 AC 11/11 (TOPROL TAB.SA) PO 212 Multivitamins 1 UDTAB QDAY 11/12 0900 AC (MULTIVITAMIN TAB) PO Nicotine 21 MG QDAY 11/11 1604 AC (NICODERM 21MG/24HR TD T.PATCH) Nitroglycerin 1 INCH Q6H 11/11 1700 AC 11/12 (NITRO-BID T.OINT) TD 0503 Nitroglycerin 0.4 MG Q5MPRN PRN 11/11 1700 AC (NITROSTAT 0.4MG SL TAB.SL) Nitroglycerin 0.4 MG Q5MPRN PRN 11/11 1600 AC (NITROSTAT 0.4MG SL TAB.SL) Ondansetron HCl 4 MG Q4HPRN PRN 11/11 1600 AC (ZOFRAN VIAL) IV Oxycodone/ 2 UDTAB TIDPRN PRN 11/11 2000 AC 11/12 Acetaminophen PO 033 (percoCET-5/325 TAB) Pravastatin Sodium 40 MG QHS 11/11 2200 AC 11/11 (PRAVACHOL TAB) PO 2124 Quetiapine Fumarate 400 MG QHS 11/11 2199 AC 11/11 (SEROQUEL TAB) PO 2123 Review of Systems ROS: Other Review of 12 systems: as stated in HPI otherwise negative Physical Exam Vital Signs Vital Signs (Last) Result Date Time Pulse Ox 99 11/12 0659 B/P 170/87 11/12 0659 O2 Delivery BIPAP 11/12 0659 Temp 97.5 11/12 0659 Pulse 62 11/12 0659 Resp 18 11/12 0659 FiO2 21 11/12 0334 O2 Flow Rate 0 11/12 0137 Vital Signs (24hr) Date Temp Pulse Resp B/P B/P Mean Pulse Ox FiO2 11/11-11/12 97.5-98.5 60-74 18-20 125-170/69-87 93-99 21 Physical Examination Summary Gen: NAD HEENT: Neck supple. OP moist. No JVD CV: Regular rate. No murmur Pulm: Normal effort. CTAB Abd: soft, nontender Vasc: Normal carotid and radial pulses. No carotid bruit Neuro: Alert. Appropriate. Face symmetric. Moves extremities symmetrically. 1+ biceps reflex MSK: No leg edema. No joint swelling Skin: Warm. No concerning lesions Pysch: Calm. Normal Affect Diagnostic Data: Laboratory Tests 11/12 11/12 11/11 0556 0556 2320 Chemistry Troponin I (0.000 - 0.045 NG/ML) Less than 0.015 Less than 0.015 Triglycerides (30 - 149 MG/DL) 273 H Cholesterol (0 - 199 MG/DL) 176 LDL Cholesterol (0 - 129 MG/DL) 91 HDL Direct (GREATER TN 40 MG/DL) 31 L 11/11 11/11 11/11 11/11 1553 1517 1517 1445 Chemistry Sodium (136 - 145 MMOL/L) 140 Potassium (3.5 - 5.1 MMOL/L) 4.0 Chloride (98 - 107 MMOL/L) 104 Carbon Dioxide (21 - 32 MMOL/L) 28 Anion Gap (5 - 16 MMOL/L) 8 BUN (7 - 26 MG/DL) 20 Creatinine (0.670 - 1.170 MG/DL) 0.866 Est GFR ( Amer) (ML/MIN) Greater than 60 Est GFR (Non-Af Amer) (ML/MIN) Greater than 60 BUN/Creatinine Ratio (15 - 24) 23 Glucose (70 - 100 MG/DL) 99 Total Calcium (8.5 - 10.1 MG/DL) 9.0 Magnesium (1.6 - 2.6 MG/DL) 2.1 Total Bilirubin (0.2 - 1.0 MG/DL) 0.2 Direct Bilirubin (0.00 - 0.20 MG/DL) 0.09 AST (8 - 34 U/L) 25 ALT (13 - 61 IU/L) 59 Alkaline Phosphatase (45 - 117 U/L) 88 POC Troponin I (0.0 - 0.06 NG/ML) 0.02 Troponin I Cancelled Serum Total Protein (6.0 - 8.5 GM/DL) 6.6 Albumin (3.2 - 5.0 GM/DL) 3.6 Globulin (2.2 - 4.2 GM/DL) 3.0 Albumin/Globulin Ratio (0.8 - 2.0) 1.2 Lipase (73 - 393 U/L) 66 L 11/11 1439 Chemistry Sodium Cancelled Potassium Cancelled Chloride Cancelled Carbon Dioxide Cancelled Anion Gap Cancelled BUN Cancelled Creatinine Cancelled BUN/Creatinine Ratio Cancelled Glucose Cancelled Total Calcium Cancelled Total Bilirubin Cancelled Direct Bilirubin Cancelled AST Cancelled ALT Cancelled Alkaline Phosphatase Cancelled Serum Total Protein Cancelled Albumin Cancelled Globulin Cancelled Albumin/Globulin Ratio Cancelled Lipase Cancelled Hematology WBC (4.5 - 11.0 K/CU MM) 10.6 RBC (4.50 - 6.00 M/CU MM) 4.72 Hgb (13.5 - 17.5 G/DL) 14.0 Hct (41.0 - 53.0 %) 41.3 MCV (80.0 - 99.0 fl) 87.5 MCHC (32.0 - 36.0 GM/DL) 33.9 RDW (11 - 14.5) 15.3 H Plt Count (150 - 450 K/CU MM) 288 MPV (9.4 - 12.4) 10.4 Immature Gran % (Auto) (Less than 2 %) 0.5 Abs Immat Gran (auto) (Less than 2 K/CU MM) 0.10 Seg Neutrophils % (45 - 75 %) 69.4 Lymphocytes % (20 - 40 %) 19.3 L Monocytes % (2 - 10 %) 7.9 Eosinophils % (0 - 5 %) 2.4 Basophils % (0 - 2 %) 0.5 Neutrophils # (2.0 - 8.3 K/CU MM) 7.30 Lymphocytes # (0.9 - 4.4 K/CU MM) 2.00 Monocytes # (0.1 - 1.1 K/CU MM) 0.80 Eosinophils # (0 - 0.5 K/CU MM) 0.30 Basophils # (0 - 0.2 K/CU MM) 0.10 Nucleated RBCs (Less than 1 %) 0.0 Recent Impressions RADIOLOGY - PORTABLE CHEST 11/11 1335 Report Impression - Status: SIGNED Entered: 11/11/2017 1400 IMPRESSION: Postoperative changes status post median sternotomy and interval placement of dual chambered pacemaker. No acute abnormalities are seen. Impression By: HUGH GIRALDO M.D. Conclusion / Plan Conclusion/Plan 1. COPD (chronic obstructive pulmonary disease) case management patient 2. YUSUF on CPAP 3. Chest pain 4. Diverticulitis Plan 67 yo male PMH of CHF, cOPD, CAD s/p CABG, PPM, HTN, chronic back pain, Yusuf, anxiety, depression, HPL, diverticulitis, enlarge prostate Presented to ED with complaints of stabbing, midsternal non radiating chest pain 8/10 in severity with associated SOB,diaphoreis and nausea. Troponins have been negative. EKG shows some ST depression. Stress test has been ordered. Disclaimer This dictation was created using voice recognition software. Phonetic and/or minor grammatical errors may exist. eSign Date and Time Lynn Wiggins CNP, Dilip C MD TROPONIN I Collected: 11/12/2017 Status: F Source: [facility] 5:56 AM [facility] REPOSITORY Order Comment: [place]: M TYPE CODE TESTS RESULT OUT OF RANGE REFERENCE UNITS LAB L550.07977 0.000-0.045 NG/ML Normal TROPONIN I Less than 0.015 Performed By: #### L550.08066 #### [facility] [place] [address] LIPID Collected: 11/12/2017 Status: F Source: [facility] 5:56 AM [facility] REPOSITORY Order Comment: [place]: M TYPE CODE TESTS RESULT OUT OF RANGE REFERENCE UNITS LAB L500.64282 30-149 MG/DL High TRIG 273 Result Comment: Patients receiving either N-Acetylcysteine (NAC) or Metamizole prior to venipuncture, may have falsely depressed results. LAB L500.07712 0-199 MG/DL Normal CHOL 176 LAB L500.61310 GREATER TN 40 MG/DL Low HDL DIRECT 31 Result Comment: Patients receiving Metamizole prior to venipuncture, may have falsely depressed results. LAB L500.93749 0-129 MG/DL Normal LDL 91 Result Comment: ___CHOLESTEROL/HDL RATIO RISK___ CHD RISK = Total CHOL LDL HDL (CHOL/HDL) Recommended <200 <130 >35 <3.4 Borderline 200-239 130-159 3.4-4.99 High >240 >160 >5.0 Performed By: #### L500.68517 #### [facility] [address] [place] [id number] TROPONIN I Collected: 11/11/2017 Status: F Source: [facility] 11:20 PM [facility] REPOSITORY Order Comment: [place]: TYPE CODE TESTS RESULT OUT OF RANGE REFERENCE UNITS LAB L550.26028 0.000-0.045 NG/ML Normal TROPONIN I Less than 0.015 Performed By: #### L550.12192 #### [facility] [address] [place] [address] ED DOC Observed: 11/11/2017 Status: UNK Source: [facility] 4:20 [facility] This is a preliminary report only, as the practitioner review and authentication has not occurred. ED DOC Observed: 11/11/2017 Status: UNK Source: [facility] 4:20 [facility] REPOSITORY PHYSICIAN ASSESSMENT RECORDS : FlexChartData Event Time: 11/11/2017 16:05 Status: Signed [facility] Maxx Knott [[id number]] Attending Physician 67 / M / 1950 Chart (V2b) Chart created at 11/11/2017 15:22 by Lee Samuels Chart closed at 11/11/2017 15:33 Entry in Emergency Department at 11/11/2017 12:56 Patient Name: Maxx Knott Record Number: [id number] Date: 11/11/2017 15:22 Entered Department at: 11/11/2017 12:56 Patient Seen at: 11/11/2017 13:14 Decision to Admit at: 11/11/2017 15:33 Historian: Patient PCP: NAHID HUFF Chief Complaint:PT REPORTS ABDOMINAL PAIN AND PROBLEMS WITH HIS COLOSTOMY. PT ALSO REPORTS MID STENRAL CHEST PAIN. Temperature: 97.8 F (36.6 C). Pulse: 88. Respiratory Rate: 16. Blood-pressure: 161/72. Oxygen Saturation: 96%. History of Present Illness: 67-Year-old male, comes in for evaluation of chest discomfort. He describes some heaviness in his chest that started an hour or 2 prior to arrival. He states he was not doing anything at the time he describes a heavy sensation without radiation to his neck or back. He states that he does have some feelings of shortness of breath, although really does not have a specific pleuritic component to it. He does have a history of coronary disease, he has had bypass [facility] PATIENT NAME: MAXX KNOTT [address] [place] MEDICAL REC #: [id number] [place] [address] EMERGENCY DEPARTMENT CHART EMERGENCY DEPARTMENT PHYSICIAN surgery and stenting most recently was stented about a year and a half ago. He states it feels somewhat similar to his previous cardiac pain syndrome. He took nitro with some improvement but the discomfort seemed to have come back. He denies any fevers or chills. He also has some discomfort with his colostomy. He has what sounds like a chronically prolapsed colostomy and is scheduled to have a surgical procedure to repair it next month. He states that it is still functioning adequately. Review of Systems. All other systems reviewed and negative.. Past History, Medications, Allergies, Social History and Family History reviewed in nurses note. Medications: Reviewed RN Note. NORVASC 10MG TABLET - PO, LOSARTAN 100MG TABLET - PO, PRAVASTATIN SODIUM 40MG TABLET - PO, VITAMIN B COMPLEX TABLET - PO, MULTIVITAMIN TABLET - PO, FLEXERIL 10MG TABLET - PO, SEROQUEL 400MG TABLET - PO, GABAPENTIN 300MG CAPSULE - PO, METOPROLOL TARTRATE 100MG TABLET - PO, LASIX 40MG TABLET - PO PRN, ALBUTEROL SULFATE 0.5% SOLUTION FOR INHALATION - INH PRN, PERCOCET 10MG-325MG TABLET - PO, NITROGLYCERIN 0.4MG SUBLINGUAL TABLET - SLG PRN, LORATADINE 10MG TABLET - PO Allergies: Reviewed RN Note Altace (Ramipril)(Get Sick), CRESTOR (Get Sick), Ramipril(Get Sick), Simvastatin(Nausea and Vomiting), ATORVASTATIN (Get Sick), MOXIFLOXACIN (Difficulty Breathing), VOLTAREN (Get Sick), HYDROCHLOROTHIAZIDE (Get Sick) Social History: Reviewed RN Note. Family History: Reviewed RN Note Physical Examination: General: Alert and Well Developed [facility] PATIENT NAME: MAXX KNOTT [address] [place] MEDICAL REC #: [id number] [place] [address] EMERGENCY DEPARTMENT CHART EMERGENCY DEPARTMENT PHYSICIAN HEENT: Normal ENT inspection. Neck: Supple Respiratory: No Resp Distress; Chest pain is not really reproducible. His lung sounds were clear Cardio-Vascular: RRR Abdomen: Non-tender and Soft; Right lower quadrant colostomy with signs of prolapse but still functioning. Back: Non-tender Extremity: No edema Neurological: Alert, Oriented X3 and No Gross Weakness Skin: Warm and Dry Psychological: Mood/Affect Normal and Normal Memory/Judgment CBC W/DIFF, information as of 11/11/2017, 1:08 pm 87.5 / 14.0 / 10.6 andgt;------andlt; 288 / 41.3 / N:69.4 BASO ABS: 0.10 K/Cu Mm; BASOPHIL %: 0.5 %; EOS ABS: 0.30 K/Cu Mm; EOSINOPHIL %: 2.4 %; IMMATR GRAN ABS: 0.10 K/Cu Mm; IMMATURE GRAN %: 0.5 %; LYMPH %: 19.3 %; LYMPH ABS: 2.00 K/Cu Mm; MCHC: 33.9 Gm/Dl; MONO ABS: 0.80 K/Cu Mm; MONOCYTE %: 7.9 %; MPV: 10.4; NEUTROPHIL ABS: 7.30 K/Cu Mm; NRBC: 0.0 %; RBC: 4.72 M/Cu Mm; RDW: 15.3 TROPONIN I POC, information as of 11/11/2017, 2:45 pm POC Trop-I: 0.02 Cardiogram: Interpreted by me. Interpretation: Sinus rhythm, rate 81, no ST elevation or infarct pattern. T-wave changes noted suddenly in the inferior leads which are slightly more prominent than the prior study August 2016 Imaging Study Obtained: CHEST (PORTABLE) Imaging Study Obtained: PORTABLE CHEST, Status:Signed Report Available PORTABLE CHEST Ordering Physician: Lee Samuels MD 11/11/2017 1:19 PM CHEST PORTABLE [facility] PATIENT NAME: MAXX KNOTT [address] [place] MEDICAL REC #: [id number] [place] [address] EMERGENCY DEPARTMENT CHART EMERGENCY DEPARTMENT PHYSICIAN Clinical Statement: Chest pain. Comparison 09/16/2016. FINDINGS: The heart is not enlarged. Atherosclerotic changes are noted within the aorta. There is been interval placement of a left-sided pacemaker with leads overlying the right atrial and right ventricular contours. There is no vascular congestion or focal consolidation. No pleural effusion is shown. IMPRESSION: Postoperative changes status post median sternotomy and interval placement of dual chambered pacemaker. No acute abnormalities are seen. ---- Electronic Signature on File ---- Signed By: Alen Giraldo MD [email or web address] Dictated: 11/11/2017 1:53 PM Signed: 11/11/2017 1:54 PM Reported By: ALEN GIRALDO M.D. Radiology: Interpreted by Radiologist. Medical Decision Making [facility] PATIENT NAME: MAXX KNOTT [address] [place] MEDICAL REC #: [id number] [place] [address] EMERGENCY DEPARTMENT CHART EMERGENCY DEPARTMENT PHYSICIAN Chemistries are still pending, the troponin was initially negative. EKG not diagnostic of STEMI. Chest x-ray unremarkable. Patient had some improvement with nitroglycerin and pain medication. His symptoms are somewhat nonspecific but concerning for possible ACS, and I recommend that he stay for monitoring. The findings were discussed with the hospitalist. Additional Information: Discussed Results, Diagnosis and Follow-Up with Patient. Clinical Impression: 1. Chest pain 2. Chronic prolapse of colostomy Observation Location: Emergency Department. Disposition: Observation . Condition: Stable MSE completed. I was the primary ED attending.. Patient transported to ED by EMS with medical direction by [facility] physician (not applicable for EMT squads) .. 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 [place] MEDICAL REC #: [id number] [place] [address] EMERGENCY DEPARTMENT CHART EMERGENCY DEPARTMENT PHYSICIAN REGISTRATION ED Number: [id number] Marital Status: D Financial Class: FEDP TRIAGE Priority: 3 - Urgent Complaint: Chest Pain Complaint: Abdominal Pain Stated Complaint: PT REPORTS ABDOMINAL PAIN AND PROBLEMS WITH HIS COLOSTOMY. PT ALSO REPORTS MID STENRAL CHEST PAIN. Arrival Date: 11/11/2017 12:56 Triage Date: 11/11/2017 13:04 Mode of Arrival: Ambulatory/Walk-In WC: N Language: [place] Citizen Transport: Walk-In BED A12 In: 11/11/2017 13:06:56 11/11/2017 13:06:56 SXM A12 (Removed From) Out: 11/11/2017 16:20:30 11/11/2017 16:20:[address] A In: 11/11/2017 18:47:03 11/11/2017 18:47:03 [facility] Notes: NEEDS ON STATUS BOARD ST A (Removed From) Out: 11/11/2017 16:20:34 11/11/2017 16:20:34 [facility] PROVIDERS MD Lee Samuels Provider Contact: 11/11/2017 13:14:49 GJJ End: [facility] PATIENT NAME: MAXX KNOTT [address] [place] MEDICAL REC #: [id number] [place] [address] EMERGENCY DEPARTMENT CHART EMERGENCY DEPARTMENT PHYSICIAN MITCHELL VILLASENOR Provider Contact: 11/11/2017 14:26:25 TPMarcos End: MITCHELL HARRIS Provider Contact: 11/11/2017 15:24:03 DILIA End: BESSY KEYS Provider Contact: 11/11/2017 16:09:51 [facility] End: TRIAGE HISTORY ALLERGIES Allergic To: CRESTOR - Get Sick 11/11/2017 13:06 SXM Allergic To: Ramipril - Get Sick 11/11/2017 13:06 SXM Allergic To: Simvastatin - Nausea and Vomiting 11/11/2017 13:06 SXM Allergic To: ATORVASTATIN - Get Sick 11/11/2017 13:06 SXM Allergic To: MOXIFLOXACIN - Difficulty Breathing 11/11/2017 13:06 SXM Allergic To: VOLTAREN - Get Sick 11/11/2017 13:06 SXM Allergic To: HYDROCHLOROTHIAZIDE - Get Sick 11/11/2017 13:06 SXM CURRENT MEDS Name: NORVASC 10MG TABLET - PO 11/11/2017 14:52 TPJ Name: LOSARTAN 100MG TABLET - PO 11/11/2017 14:52 TPJ Name: PRAVASTATIN SODIUM 40MG TABLET - PO 11/11/2017 14:52 TPJ Name: VITAMIN B COMPLEX TABLET - PO 11/11/2017 14:52 TPJ [facility] PATIENT NAME: MAXX KNOTT [address] [place] MEDICAL REC #: [id number] [place] [address] EMERGENCY DEPARTMENT CHART EMERGENCY DEPARTMENT PHYSICIAN Name: MULTIVITAMIN TABLET - PO 11/11/2017 14:52 TPJ Name: FLEXERIL 10MG TABLET - PO 11/11/2017 14:52 TPJ Name: SEROQUEL 400MG TABLET - PO 11/11/2017 14:52 TPJ Name: GABAPENTIN 300MG CAPSULE - PO 11/11/2017 14:52 TPJ Name: METOPROLOL TARTRATE 100MG TABLET - PO 11/11/2017 14:52 TPJ Name: LASIX 40MG TABLET - PO PRN 11/11/2017 14:52 TPJ Name: ALBUTEROL SULFATE 0.5% SOLUTION FOR INHALATION - INH PRN 11/11/2017 14:52 TPJ Name: PERCOCET 10MG-325MG TABLET - PO 11/11/2017 14:52 TPJ Name: NITROGLYCERIN 0.4MG SUBLINGUAL TABLET - SLG PRN 11/11/2017 14:52 TPJ Name: LORATADINE 10MG TABLET - PO 11/11/2017 14:52 TPJ ILLNESS Illness: CHF 11/11/2017 13:06 SXM Illness: COPD 11/11/2017 13:06 SXM Illness: Angina/CAD 11/11/2017 13:06 SXM Illness: Hypertension 11/11/2017 13:06 SXM Illness: Sleep Apnea 11/11/2017 13:06 SXM Illness: High Cholestrol 11/11/2017 13:06 SXM Illness: Diverticulitis 11/11/2017 13:06 SXM PAST SURGERY HIST Surgery: Cardiac Bypass 11/11/2017 13:06 SXM Surgery: Appendectomy 11/11/2017 13:06 SXM Surgery: COLOSTOMY 11/11/2017 13:06 SXM [facility] PATIENT NAME: MAXX KNOTT [address] [place] MEDICAL REC #: [id number] [place] [address] EMERGENCY DEPARTMENT CHART EMERGENCY DEPARTMENT PHYSICIAN Surgery: triple heart bypass 11/11/2017 13:06 SXM PAST SOCIAL HIST Social History: Communicates without difficulty 11/11/2017 13:06 SXM Social History: Lives with family or significant other 11/11/2017 13:06 SXM Social History: Alcohol - None 11/11/2017 13:06 SXM Social History: Recreational Drugs - None 11/11/2017 13:06 SXM Social History: Smoker-1/2-3/4 PPD 11/11/2017 13:06 SXM Social History: Denies Domestic Violence 11/11/2017 13:06 SXM Social History: Denies thoughts of self harm. 11/11/2017 13:06 SXM Social History: Have you traveled in the past month? Where no 11/11/2017 13:06 SXM IMMUNIZATIONS Immunization: *Not Applicable 11/11/2017 13:06 SXM NURSING ASSESSMENT ASSESSMENT NOTES 11/11/2017 13:48 IV unsuccessful x2. 11/11/2017 13:48 TPJ 11/11/2017 13:49 Patient complains of midsternal chest pain x1 hour. Denies radiation of pain, denies shortness of breath. PERRLA. LCTA. Abdomen soft, colostomy noted. Bowel sounds present x4. Patient denies fever/chills. Alert and oriented x4. 11/11/2017 13:50 [facility] 11/11/2017 14:00 Adina Jackson RN unsuccessful x2 for IV [facility] PATIENT NAME: MAXX KNOTT [address] [place] MEDICAL REC #: [id number] [place] [address] EMERGENCY DEPARTMENT CHART EMERGENCY DEPARTMENT PHYSICIAN attempt. 11/11/2017 14:26 [facility] 11/11/2017 16:12 report called to Rose GONZALEZ on 9main. 11/11/2017 16:12 DRBA TREATMENT 11/11/2017 13:48 Staff/ Patient Interaction - Side rails up X2 and call light placed within reach. 11/11/2017 14:27 [facility] 11/11/2017 13:48 Hourly Rounding - Rounding 11/11/2017 14:27 [facility] Elimination/Toileting N Position Comfortable Y Safe Environment Y Fall Risk Change N 11/11/2017 14:48 Primary DOC Guide - A. 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 Geriatric (65+) Fall Risk Assessment 11/11/2017 14:48 TPJ STEADI Score Total 0 STEADI Fall Assessment Score of 4 or greater? No 11/11/2017 14:48 Primary DOC Guide - D. Psychosocial Assessment 11/11/2017 14:48 TPJ Over the Last 2 weeks, how often have you had little interest or pleasure in doing things (0) Not at All Is Psychosocial Assessment Score 3 or more? If score is 3 or more please consult ED Navigator! No Total Psychosocial Assessment Score 0 Over the last 2 weeks, how often have you been feeling [facility] PATIENT NAME: MAXX KNOTT [address] [place] MEDICAL REC #: [id number] [place] [address] EMERGENCY DEPARTMENT CHART EMERGENCY DEPARTMENT PHYSICIAN down, depressed or hopeless (0) Not at All 11/11/2017 14:48 Primary DOC Guide - E. Family Violence Assessment 11/11/2017 14:48 TPJ Within the past year, has anyone ever pushed, shoved, slapped, choked, hit, punched or kicked you: No Within the past year, has anyone ever pressured or forced you to have sexual activities when you did not want to: No Do you feel safe and well cared for: Yes Is there a partner from a previous or current relationship that is making you feel unsafe now: No 11/11/2017 14:58 POC testing results and critical values - POC Troponin 0.02 on ED 1 instrument 11/11/2017 14:59 KKF 11/11/2017 15:06 Staff/ Patient Interaction - Report given to Myles Harris RN . 11/11/2017 15:06 TPJ 11/11/2017 15:23 Physician Call - called at 1518 11/11/2017 15:25 AAR 11/11/2017 15:24 Physician Call - Marcos Adams answered at 1521 11/11/2017 15:25 AAR MEDICATIONS IV IV Fluid: B 11/11/2017 14:40 11/11/2017 14:41 [facility] Line #: 1 Fluid: Saline Lock Rate: ml/hr Location: hand left Ndl Gauge: 22 # Attempts: 3 Notes: IV FLUSHED AND PATENT NO S/S INFILTRATION ABLE TO DRAW OFF LINE WITH EASE I AND O [facility] PATIENT NAME: MAXX KNOTT [address] [place] MEDICAL REC #: [id number] [place] [address] EMERGENCY DEPARTMENT CHART EMERGENCY DEPARTMENT PHYSICIAN VITALS VS-ROUTINE Time: 11/11/2017 13:04 B/P: 161/72 - Right Upper Arm - Sitting - Machine Pulse: 88 - Monitor Resp: 16 Sa02: 96 Room Air Temp: 97.80 F - Oral 11/11/2017 13:06 SXM VS-Pain Time: 11/11/2017 13:04 Pain Level: 8 11/11/2017 13:06 SXM VS-GCS Time: 11/11/2017 13:04 Visual: 4 Verbal: 5 Motor: 6 GCS Total: 15 11/11/2017 13:06 SXM VS-HT/WT Time: 11/11/2017 13:04 Ht: 172.7 cm Stated Weight: 86.2 kg Actual 11/11/2017 13:06 SXM VS-Visual Time: 11/11/2017 13:04 11/11/2017 13:06 SXM VS-FHT Time: 11/11/2017 13:04 11/11/2017 13:06 SXM VS-Notes Time: 11/11/2017 13:04 MAP 103 11/11/2017 13:06 SXM VS-ROUTINE Time: 11/11/2017 14:42 B/P: 158/69 - Right Upper Arm - Sitting - Machine Pulse: 68 - Cloth Framer Resp: 16 Sa02: 96 Room Air 11/11/2017 14:46 TPJ VS-Pain Time: 11/11/2017 14:42 Pain Level: 8 11/11/2017 14:46 TPJ VS-GCS Time: 11/11/2017 14:42 Visual: 4 Verbal: 5 Motor: 6 GCS Total: 15 11/11/2017 14:46 TPJ VS-HT/WT Time: 11/11/2017 14:42 11/11/2017 14:46 TPJ VS-Visual Time: 11/11/2017 14:42 11/11/2017 14:46 TPJ VS-FHT Time: 11/11/2017 14:42 11/11/2017 14:46 TPJ VS-Notes Time: 11/11/2017 14:42 map 99 11/11/2017 14:46 TPJ VS-ROUTINE Time: 11/11/2017 14:49 B/P: 146/65 - Right Upper Arm - Sitting - Machine Pulse: 83 - Cloth Framer Resp: 16 Sa02: 95 11/11/2017 14:49 TPJ VS-Pain Time: 11/11/2017 14:49 Pain Level: 7 11/11/2017 14:49 TPJ VS-GCS Time: 11/11/2017 14:49 Visual: 4 Verbal: 5 Motor: 6 GCS Total: 15 11/11/2017 14:49 TPJ VS-HT/WT Time: 11/11/2017 14:49 11/11/2017 14:49 TPJ VS-Visual Time: 11/11/2017 14:49 11/11/2017 14:49 TPJ VS-FHT Time: 11/11/2017 14:49 11/11/2017 14:49 TPJ [facility] PATIENT NAME: MAXX KNOTT [address] [place] MEDICAL REC #: [id number] [place] [address] EMERGENCY DEPARTMENT CHART EMERGENCY DEPARTMENT PHYSICIAN VS-Notes Time: 11/11/2017 14:49 map 93 after 1st nitro 11/11/2017 14:49 TPJ VS-ROUTINE Time: 11/11/2017 14:53 B/P: 139/63 - Right Upper Arm - Sitting - Machine Pulse: 92 - Cloth Framer Resp: 16 Sa02: 93 Room Air 11/11/2017 14:54 TPJ VS-Pain Time: 11/11/2017 14:53 Pain Level: 6 11/11/2017 14:54 TPJ VS-GCS Time: 11/11/2017 14:53 Visual: 4 Verbal: 5 Motor: 6 GCS Total: 15 11/11/2017 14:54 TPJ VS-HT/WT Time: 11/11/2017 14:53 11/11/2017 14:54 TPJ VS-Visual Time: 11/11/2017 14:53 11/11/2017 14:54 TPJ VS-FHT Time: 11/11/2017 14:53 11/11/2017 14:54 TPJ VS-Notes Time: 11/11/2017 14:53 map after 2nd nitro 11/11/2017 14:54 TPJ VS-ROUTINE Time: 11/11/2017 14:57 B/P: 126/60 - Right Upper Arm - Sitting - Machine Pulse: 91 - Cloth Framer Resp: 16 Sa02: 93 Room Air 11/11/2017 14:58 TPJ VS-Pain Time: 11/11/2017 14:57 Pain Level: 6 11/11/2017 14:58 TPJ VS-GCS Time: 11/11/2017 14:57 Visual: 4 Verbal: 5 Motor: 6 GCS Total: 15 11/11/2017 14:58 TPJ VS-HT/WT Time: 11/11/2017 14:57 11/11/2017 14:58 TPJ VS-Visual Time: 11/11/2017 14:57 11/11/2017 14:58 TPJ VS-FHT Time: 11/11/2017 14:57 11/11/2017 14:58 TPJ VS-Notes Time: 11/11/2017 14:57 map 87 after 3rd nitro 11/11/2017 14:58 TPJ VS-ROUTINE Time: 11/11/2017 16:06 B/P: 157/72 - Right Upper Arm - Sitting - Machine Pulse: 70 - Cloth Framer Resp: 18 Sa02: 98 Room Air 11/11/2017 16:06 DRBA VS-Pain Time: 11/11/2017 16:06 Pain Level: 7 11/11/2017 16:06 DRBA VS-GCS Time: 11/11/2017 16:06 Visual: 4 Verbal: 5 Motor: 6 GCS Total: 15 11/11/2017 16:06 DRBA VS-HT/WT Time: 11/11/2017 16:06 11/11/2017 16:06 DRBA VS-Visual Time: 11/11/2017 16:06 11/11/2017 16:06 DRBA [facility] PATIENT NAME: MAXX KNOTT [address] [place] MEDICAL REC #: [id number] [place] [address] EMERGENCY DEPARTMENT CHART EMERGENCY DEPARTMENT PHYSICIAN VS-FHT Time: 11/11/2017 16:06 11/11/2017 16:06 DRBA VS-Notes Time: 11/11/2017 16:06 map 104 11/11/2017 16:06 DRBA ORDERS WOMEN DESIGNER ORDER: MG 11/11/2017 16:36 None Ordered: 11/11/2017 16:36 Completed Time: 11/11/2017 16:36 Results Time: 11/11/2017 16:36 WOMEN DESIGNER ORDER: LIPA 11/11/2017 15:58 None Ordered: 11/11/2017 15:58 Completed Time: 11/11/2017 15:58 Results Time: 11/11/2017 15:58 WOMEN DESIGNER ORDER: BMP 11/11/2017 15:58 None Ordered: 11/11/2017 15:58 Completed Time: 11/11/2017 15:58 Results Time: 11/11/2017 15:58 WOMEN DESIGNER ORDER: GFRP 11/11/2017 15:58 None Ordered: 11/11/2017 15:58 Completed Time: 11/11/2017 15:58 Results Time: 11/11/2017 15:58 WOMEN DESIGNER ORDER: LIVER 11/11/2017 15:58 None Ordered: 11/11/2017 15:58 Completed Time: 11/11/2017 15:58 Results Time: 11/11/2017 15:58 *Status: Observation 11/11/2017 15:50 N/A Ordered: 11/11/2017 15:33 By . Other Reviewed: 11/11/2017 15:50 By . Other WOMEN DESIGNER ORDER: POCTROP 11/11/2017 15:01 None Ordered: 11/11/2017 15:01 Completed Time: 11/11/2017 15:01 Results Time: 11/11/2017 15:01 Zofran (IV)*(2mg/ml) DOSE: 4 mg IV 11/11/2017 14:52 N/A [facility] PATIENT NAME: MAXX KNOTT [address] [place] MEDICAL REC #: [id number] [place] [address] EMERGENCY DEPARTMENT CHART EMERGENCY DEPARTMENT PHYSICIAN Ordered: 11/11/2017 14:43 By Lee Samuels Completed Time: 11/11/2017 14:52 By Lee Samuels NTG (SL)*(0.4mg) DOSE:0.4 mg x3 Q5MIN PRN CP (stop for SBPandlt;90) SL 11/11/2017 14:58 N/A Ordered: 11/11/2017 13:19 By Lee Samuels Completed Time: 11/11/2017 14:58 By Lee Samuels Noted Time: 11/11/2017 13:46 TPJ Lab: Add On Test (excluding POC tests) 11/11/2017 14:42 N/A Ordered: 11/11/2017 13:19 By Lee Samuels Noted Time: 11/11/2017 14:42 [facility] Question: Test to be added: Answer: Liver profile/lipase IV hep lock 11/11/2017 14:42 N/A Ordered: 11/11/2017 13:19 By Lee Samuels Completed Time: 11/11/2017 14:42 By Lee Samuels Morphine (IV)*(4mg/ml) DOSE:4 mg IV 11/11/2017 14:52 N/A Ordered: 11/11/2017 13:19 By Lee Samuels Completed Time: 11/11/2017 14:52 By Lee Samuels Noted Time: 11/11/2017 13:46 TPJ CXR portable 11/11/2017 14:02 N/A Ordered: 11/11/2017 13:19 By Lee Samuels Completed Time: 11/11/2017 14:02 By Lee Samuels Indication: Chest Pain Noted Time: 11/11/2017 13:49 EKG and most recent EKG 11/11/2017 14:08 N/A Ordered: 11/11/2017 13:07 By Protocol Completed Time: 11/11/2017 14:08 By Protocol Noted Time: 11/11/2017 13:23 KKF O2 by cannula at 2L if SAT andlt;= 91% 11/11/2017 13:18 N/A [facility] PATIENT NAME: MAXX KNOTT [address] [place] MEDICAL REC #: [id number] [place] [address] EMERGENCY DEPARTMENT CHART EMERGENCY DEPARTMENT PHYSICIAN Ordered: 11/11/2017 13:07 By Protocol Completed Time: 11/11/2017 13:18 By Protocol POC troponin 11/11/2017 14:58 N/A Ordered: 11/11/2017 13:07 By Protocol Completed Time: 11/11/2017 14:59 By Protocol Noted Time: 11/11/2017 14:42 [facility] BMP 11/11/2017 14:42 N/A Ordered: 11/11/2017 13:07 By Protocol Noted Time: 11/11/2017 14:42 [facility] CBC with diff 11/11/2017 14:47 N/A Ordered: 11/11/2017 13:07 By Protocol Completed Time: 11/11/2017 14:47 By Protocol Noted Time: 11/11/2017 14:42 [facility] Results Time: 11/11/2017 14:47 DISCHARGE Diagnosis: Chest pain, Chronic prolapse of colostomy 11/11/2017 15:33 Disposition: Time: 11/11/2017 15:33 Discharge Time: 11/11/2017 16:20 Type: *Observation to Floor Condition: Stable for admission/discharge/transfer after emergency evaluation/treatment Category: *NOT APPLICABLE Referral: 11/11/2017 15:33 Admit To: *Bed Type - Telemetry Admit Physician: . Other PRESCRIPTIONS CHARGES SIGNATURE [facility] PATIENT NAME: MAXX KNOTT [address] [place] MEDICAL REC #: [id number] [place] [address] EMERGENCY DEPARTMENT CHART EMERGENCY DEPARTMENT PHYSICIAN Lee Samuels MD GJJ Latanya Kohler RN JOHANNA CALDERÓN [facility] Alison Daniel RN SXHelen VILLASENOR RN TPJ HERLINDA VALENTINE EL [facility] BESSY KEYS JM RATNA HARRIS RN DRTHEODORA [facility] PATIENT NAME: MAXX KNOTT [facility] [address] [place] MEDICAL REC #: [id number] [place] [address] EMERGENCY DEPARTMENT CHART EMERGENCY DEPARTMENT PHYSICIAN EKG Observed: 11/11/2017 Status: UNK Source: [facility] 4:00 PM [facility] REPOSITORY Procedure Date and Time: 11/11/17 1323 Test Reason : STAT Blood Pressure : / mmHG Vent. Rate : 081 BPM Atrial Rate : 081 BPM P-R Int : 180 ms QRS Dur : 106 ms QT Int : 416 ms P-R-T Axes : 055 039 026 degrees QTc Int : 483 ms Normal sinus rhythm Prolonged QT Abnormal ECG When compared with ECG of 16-SEP-2016 06:26, Nonspecific T wave abnormality, worse in Inferior leads Confirmed by Osman [facility], A. ([id number]) on 11/12/2017 2:16:55 AM Referred By: Crystal Herrera Confirmed By:Krista BAZAN M.D.[facility] Osman DDandT: 11/11/17 1323 TDandT: [facility] PATIENT NAME: MAXX KNOTT [facility] [address] [place] MEDICAL REC #: [id number] [place] [address] ADMIT DATE: 11/11/17 DISCHARGE DATE: ATTENDING PHY: Fernie Segundo DO ELECTROCARDIOGRAM REPORT CLB cc: [facility] PATIENT NAME: MAXX KNOTT [facility] [address] [place] MEDICAL REC #: [id number] [place] [address] ADMIT DATE: 11/11/17 DISCHARGE DATE: ATTENDING PHY: Fernie Segundo DO ELECTROCARDIOGRAM REPORT CR Observed: 11/11/2017 Status: UNK Source: [facility] 4:00 PM [facility] REPOSITORY DATE OF CONSULTATION: 11/12/2017 REFERRING: Luciano. HISTORY OF PRESENT ILLNESS: Mr. Knott is a 67-year-old gentleman who I was asked to see for chest pain and underlying coronary disease. This is now about the sixth time I have seen him during his multiple admissions here to [facility]. He had developed chest pain starting yesterday. He was at rest. The pain lasted 4 hours. He states it was a heavy sensation. He subsequently was brought to this emergency room where EKGs were checked and showed only mild nonspecific T-wave changes. Troponins were normal. Since that time, he has been admitted, troponins are negative, and now a repeat stress nuclear study is about to be done. This gentleman is a very tedious, unreliable historian. He has had multiple admissions here for chest pain. He unfortunately does have underlying coronary disease. He has a remote bypass done with a placement of RHODES-to-LAD graft and vein grafts to a right coronary and also to a marginal branch. The patient was last in the Catheterization Lab about a year and a half ago where he did have stents placed to both a diagonal branch and an angioplasty branch to a marginal branch. Of note, during that procedure done by Dr. Bazan, special care was taken during his dictation to explain that during inflation, there was no correlation of any type of any patient complaint to chest pain during inflations. This gentleman last underwent a stress nuclear study here about a year ago or so, and at that time, it was unremarkable. The last time I actually saw him in the hospital was back in August of last year in 2016. He was supposed to have followed up with Dr. Leach for a pacer check, as well as with me for an outpatient visit, and the patient canceled both visits and has not been seen in our office for over a year. 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 He then looked at me and stated he did not know anything about that. He then told me that his pacer was just checked 2 weeks ago at [facility]. He did not know who checked it but stated the device was working fine. Normally, a pacer would be checked at a patient's cardiology's office. He then stated, Oh, yeah, that must be my straightening machine operator. MEDICATIONS: Assuming his medications are accurate, he is presently on a number of medications includin. Amlodipine. 2. Aspirin. 3. Lasix. 4. Losartan. 5. Metoprolol succinate 50 mg daily. 6. Pravastatin. [facility] PATIENT NAME: MAXX KNOTT [address] [facility] [address] [place] MEDICAL REC #: [id number] [place] [address] ADMIT DATE: 11/11/17 DISCHARGE DATE: 11/13/17 CONSULTATION REPORT ATTENDING PHY: Sarah Mauro MD ALLERGIES: Of note, he does have an allergy to [employer]IT[employer]. PAST MEDICAL HISTORY: Of additional note, this gentleman has had problems with diverticulitis and fistula creations, dictating the necessity for a colostomy in his right lower quadrant. He has had surgeries for this in [place]. He additionally has obstructive sleep apnea. SOCIAL HISTORY: In addition, despite his history, he continues to smoke a pack a day, although he tells me today that he quit smoking 1 week ago. PHYSICAL EXAMINATION: Vital Signs: The blood pressure here was 125/70 with rates in the 70s and sinus by mechanism. Cardiac: Showed the pulses in the feet to be intact. There was no significant edema. He has moderate truncal obesity. Showed a regular rhythm. The heart tones were distant but appeared normal. I could not hear a pathologic murmur or gallop. There are no carotid bruits. Lungs: Breath sounds are present bilaterally. PERTINENT INFORMATION ON THE CHART: Includes an echo from 2016 which showed a normal ejection fraction and no valve issues. EKGs this admission showed sinus rhythm with nonspecific T-wave changes not unlike those done a year ago. His chest x-ray showed the evidence of a previous bypass procedure but no evidence of heart failure and no other acute abnormality. His electrolytes were normal with a creatinine of 0.8. His troponins were normal. His LDL was 91. Magnesium was 2.1. CBC was normal. ASSESSMENT: 1. Chronic recurrent chest pain - unclear etiology. 2. Known coronary disease status post 3-vessel bypass and at least 2 stents. 3. Unreliable history. RECOMMENDATIONS: Await stress nuclear study. If this is normal, or at least showing no ischemia, I would not pursue any other further cardiac testing. S Carmine Rosario MD /[id number] [facility] File#: [id number] Verified/Reviewed by [facility] PATIENT NAME: MARILUZ KNOTTYanelis Corrigan [address] MEDICAL REC #: [id number] [place] [address] ADMIT DATE: 11/11/17 DISCHARGE DATE: 11/13/17 CONSULTATION REPORT ATTENDING PHY: Sarah Mauro MD 11/18/17 1105 PIPSW [facility] PATIENT NAME: MAXX KNOTT [address] [facility] [address] [place] MEDICAL REC #: [id number] [place] [address] ADMIT DATE: 11/11/17 DISCHARGE DATE: 11/13/17 CONSULTATION REPORT ATTENDING PHY: Sarah Mauro MD CDLSTRESS Observed: 11/11/2017 Status: UNK Source: [facility] 4:00 PM [facility] REPOSITORY INTERPRETING PHYSICIAN: Ifeoma oRsario MD ATTENDING PHYSICIAN: Fernie Segundo DO ORDERING/REFERRING PHYSICIAN: DATE(S) OF SERVICE: 11/12/2017 PROCEDURE: Lexiscan stress test. PATIENT RELATED INFORMATION: Age: Height: ft in Weight: lbs. oz. Sex: Smokes: Cigars: #Cigs: Pipe: Inactive: Mod.Man.Labor: Heavy Work: Sedentary: Sedentary and Ex. Program: HR Since last meal: REASON FOR PERFORMING TEST: MEDICATIONS: INTERPRETATION: EKG response to exercise: Blood pressure response: Rhythm: Conduction: ST segment: Heart rate response: Fitness classification: Resting ECG: The baseline EKG showed normal sinus with a mechanically-paced ventricular rhythm. The patient underwent Lexiscan stress testing, using a standard Lexiscan dose of 0.4 mg injected over 8-10 seconds. Following Lexiscan infusion, the blood pressure dropped from 135/66 to 99/47. The heart rate increased from 60 to 72 bpm. No chest pain occurred. No arrythmias occurred. No ST-segment changes beyond what was seen on the baseline EKG occurred. The test was felt to be symptomatically negative but electrocardiographically indeterminate for ischemia, due to a mechanically-paced ventricular arrythmia. FINAL IMPRESSION: Symptomatically negative and electrocardiographically indeterminate Lexiscan stress test for ischemia. S Carmine Rosario MD [facility] PATIENT NAME: MAXX KNOTT [facility] [address] [place] MEDICAL REC #: [id number] [place] [address] ADMIT DATE: 11/11/17 DISCHARGE DATE: 11/13/17 ATTENDING PHY: Sarah Mauro MD CARDIAC STRESS TEST REPORT [id number] [facility] File#: [id number] CC: [facility] CC: Fernie Segundo DO Verified/Reviewed by [address] [facility] PATIENT NAME: MAXX KNOTT [facility] [address] [place] MEDICAL REC #: [id number] [place] [address] ADMIT DATE: 11/11/17 DISCHARGE DATE: 11/13/17 ATTENDING PHY: Sarah Mauro MD CARDIAC STRESS TEST REPORT HP.IMS.ADM Observed: 11/11/2017 Status: UNK Source: [facility] 3:56 PM [facility] Patient Name: MAXX KNOTT [facility] Date of : [address] [address] Unit Number: [id number] Admission-HandP Patient Status: REG ER Attending Doctor: Viktor WellingtonEmergency Physicians Service Date: 11/11/17 1556 CRYSTAL HERRERA 11/11/17 1556: History of Present Illness Chief Complaint/Present Illness: CHEST PAIN History of Present Illness This is a pleasant 67-year-old male patient of [place], with history of CHF, COPD, CAD, who presents to [facility] with midsternal chest pain. States it was initially 8 out of 10 nonradiating with nausea, diaphoresis and shortness of breath. States his pain is slightly improved to 7 now. Additionally he has a pacemaker and a colostomy secondary to diverticulitis. He has a prolapsed colostomy requiring surgery at the [facility] in the near future. He does have some discomfort to that area as well. He was seen and examined in the ER and initial troponins negative, there was some T-wave inversions noted. He has been followed by Dr. Arango of cardiology in the past. He will be admitted for stress test and a consult cardiology. He denies any fevers, does admit to feeling chilled at times. He denies any cough. Past Medical/Surgical Hx Past Medical History CHF, COPD, CAD, hypertension, chronic back pain, sleep apnea, anxiety depression, hyperlipidemia, diverticulitis, enlarged prostate Past Surgical History He has had cardiac bypass, appendectomy, colostomy, pacemaker Family/Social History Family History MOTHER, , Age 60+; Cause: Alzheimer disease. FATHER, , Age 60+; Cause: Congestive heart failure. 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 He is still smoking a half to three-quarter packs of cigarettes a day. He HAs smoked over 45 years. He denies any alcohol or illicit drug use. Advance Directives Advance Directives Full Code Allergies/Home Medications Allergies Coded Allergies: ATORVASTATIN (FACIAL SWELLING 02/23/16) MOXIFLOXACIN (DIFFICULTY BREATHING 02/22/16) DICLOFENAC (From VOLTAREN) (SICK 02/22/16) HYDROCHLOROTHIAZIDE (SICK 02/22/16) RAMIPRIL (From ALTACE) (SICK 02/22/16) ROSUVASTATIN (From CRESTOR) (SICK 02/22/16) SIMVASTATIN (NAUESEA and VOMITING 02/22/16) Review of Systems ROS: Other Constitutional - Denies any fever, chills, fatigue. Eyes - Denies any blurred vision, double vision. HEENT -Denies any difficulty hearing, difficulty swallowing, headaches, or sore throat. Cardiovascular -admits to chest pain midsternal 8 out of 10 nonradiating with nausea, shortness of breath and diaphoresis. Some improvement now 7 out of 10. Respiratory - Denies any cough, hemoptysis, but was short of breath or chest pain Gastrointestinal -does have some abdominal discomfort, states related to his colostomy, also admits to some nausea Genitourinary - Denies any dysuria, hematuria. Skin -Denies any jaundice, rash. Neurologic - Denies any blurred vision, double vision, slurred speech, headaches, does admit to some chronic numbness and tingling in extremities Psychiatric - Denies any anxiety, depression. Physical Exam Vital Signs Vitals in ER as follows: Blood pressure 126/60, heart rate 91, respirations 16, 93% room air, 97.8 temperature Laboratory Tests 11/11 11/11 11/11 1517 1445 [id number] Chemistry Sodium (136 - 145 MMOL/L) 140 Cancelled Potassium (3.5 - 5.1 MMOL/L) 4.0 Cancelled Chloride (98 - 107 MMOL/L) 104 Cancelled Carbon Dioxide (21 - 32 MMOL/L) 28 Cancelled Anion Gap (5 - 16 MMOL/L) 8 Cancelled BUN (7 - 26 MG/DL) 20 Cancelled Creatinine (0.670 - 1.170 MG/DL) 0.866 Cancelled Est GFR ( Amer) (ML/MIN) Greater than 60 Est GFR (Non-Af Amer) (ML/MIN) Greater than 60 BUN/Creatinine Ratio (15 - 24) 23 Cancelled Glucose (70 - 100 MG/DL) 99 Cancelled Total Calcium (8.5 - 10.1 MG/DL) 9.0 Cancelled Total Bilirubin (0.2 - 1.0 MG/DL) 0.2 Cancelled Direct Bilirubin (0.00 - 0.20 MG/DL) 0.09 Cancelled AST (8 - 34 U/L) 25 Cancelled ALT (13 - 61 IU/L) 59 Cancelled Alkaline Phosphatase (45 - 117 U/L) 88 Cancelled POC Troponin I (0.0 - 0.06 NG/ML) 0.02 Serum Total Protein (6.0 - 8.5 GM/DL) 6.6 Cancelled Albumin (3.2 - 5.0 GM/DL) 3.6 Cancelled Globulin (2.2 - 4.2 GM/DL) 3.0 Cancelled Albumin/Globulin Ratio (0.8 - 2.0) 1.2 Cancelled Lipase (73 - 393 U/L) 66 L Cancelled Hematology WBC (4.5 - 11.0 K/CU MM) 10.6 RBC (4.50 - 6.00 M/CU MM) 4.72 Hgb (13.5 - 17.5 G/DL) 14.0 Hct (41.0 - 53.0 %) 41.3 MCV (80.0 - 99.0 fl) 87.5 MCHC (32.0 - 36.0 GM/DL) 33.9 RDW (11 - 14.5) 15.3 H Plt Count (150 - 450 K/CU MM) 288 MPV (9.4 - 12.4) 10.4 Immature Gran % (Auto) (Less than 2 %) 0.5 Abs Immat Gran (auto) (Less than 2 K/CU MM) 0.10 Seg Neutrophils % (45 - 75 %) 69.4 Lymphocytes % (20 - 40 %) 19.3 L Monocytes % (2 - 10 %) 7.9 Eosinophils % (0 - 5 %) 2.4 Basophils % (0 - 2 %) 0.5 Neutrophils # (2.0 - 8.3 K/CU MM) 7.30 Lymphocytes # (0.9 - 4.4 K/CU MM) 2.00 Monocytes # (0.1 - 1.1 K/CU MM) 0.80 Eosinophils # (0 - 0.5 K/CU MM) 0.30 Basophils # (0 - 0.2 K/CU MM) 0.10 Nucleated RBCs (Less than 1 %) 0.0 Recent Impressions RADIOLOGY - PORTABLE CHEST 11/11 1335 Report Impression - Status: SIGNED Entered: 11/11/2017 1400 IMPRESSION: Postoperative changes status post median sternotomy and interval placement of dual chambered pacemaker. No acute abnormalities are seen. Impression By: HUGH GIRALDO M.D. Constitutional - Patient appears appropriate, alert lying in bed in no distress Eyes - Anicteric, normal conjunctiva. ENT - Head normocephalic,atraumatic. Oral mucosa pink and moist. Neck supple, trachea midline. Cardiovascular - Heart is regular rate and rhythm. No gallops, rubs, murmurs noted. No carotid bruit noted. No chest wall tenderness noted upon exam Respiratory-nonlabored, regular, even. Clear to auscultation. Skin - Appears warm, dry, intact. Gastrointestinal - Abdomen soft, bowel sounds present, does have some abdominal tenderness , ears colostomy. Appears to have a prolapsed colostomy. No guarding or rebounding noted. Genitourinary - Not examined Lymph - No gross lymphadenopathy noted. Musculoskeletal - Grasps appear moderate in strength and equal. Pulses are +2. Bilateral lower edema 1+ Neurologic - Patient is alert and oriented and appropriate 3. Speech is clear. No facial droop noted. Psychiatric - Patient appears calm, no anxiety or depression noted. Conclusion / Plan Conclusion 1. Chest pain 2. YUSUF on CPAP 3. HLD (hyperlipidemia) 4. COPD (chronic obstructive pulmonary disease) 5. Tobacco abuse 6. Hypertension 7. Abdominal pain Plan 1. Chest pain-rule out ACS, stress test ordered, cardiology consult, will cycle troponins, have Nitropaste for chest pain. Check lipid panel, continue aspirin therapy. 2. YUSUF on CPAP-resume his CPAP as at home 3. HLD (hyperlipidemia)-check lipid panel resume his statin as at home 4. COPD (chronic obstructive pulmonary disease)-DuoNeb's 5. Tobacco abuse-NicoDerm patch and smoking cessation counseling ordered 6. Hypertension-resume his metoprolol and Norvasc 7. Abdominal bdtg-[id number] with [facility] for surgery for prolapsed colostomy. We' ll resume his home pain medication History of CHF, does not appear to be in acute exacerbation. Would recommend continuing his metoprolol and Lasix. Chronic back pain, will resume his home meds DVT prophylaxis subcutaneous heparin twice a day Collaborating Physician Fernie Segundo DO Expected Stay 2 days or less FERNIE SEGUNDO 11/11/17 1646: Allergies/Home Medications Home Medications Albuterol Sulfate 0.083% 2.5MG/3ML Ud* 2.5 MG/3 ML VIAL.NEB 2.5 MG INH Q4HPRN PRN SHORTNESS OF BREATH, Ref 0 (Reported) Entered as Reported by BESSY KEYS on 11/11/17 1608 Last Action: Continued on 11/11/17 1635 by CRYSTAL HERRERA Albuterol Sulfate (Proair Hfa Inhaler) 8.5 GM HFA.AER.AD 2 PUFF INH Q4HPRN PRN SHORTNESS OF BREATH, Ref 0 (Reported) Entered as Reported by JUSTUS RAYO on 07/04/16 1217 Last Taken: At an unknown date and time Last Action: Continued on 11/11/17 163 by CRYSTAL HERRERA amLODIPine BESYLATE* (Norvasc Tab*) 10 MG TABLET 10 MG PO QDAY, Ref 0 (Reported) Entered as Reported by JUSTUS RAYO on 07/04/16 1219 Last Taken: At an unknown date and time Last Action: Continued on 11/11/17 163 by CRYSTAL HERRERA Aspirin* (Aspir 81 MG Tab*) 81 MG TABLET.DR 81 MG PO QDAYWM, Ref 0 (Reported) Entered as Reported by JUSTUS RAYO on 07/04/16 1218 Last Taken: At an unknown date and time Last Action: Continued on 11/11/17 163 by CRYSTAL HERRERA Cyclobenzaprine HCl* (Flexeril 10MG Tab*) 10 MG TABLET 10 MG PO QHS, Ref 0 (Reported) Entered as Reported by JOVANI FAJARDO on 08/26/16 0050 Last Action: Continued on 11/11/17 163 by CRYSTAL HERRERA Furosemide* (Lasix 40MG Tab*) 40 MG TABLET 40 MG PO QDAYPRN PRN SWELLING, Ref 0 ( Reported) Entered as Reported by BART ROBISON on 02/22/16 0317 Last Taken: At an unknown date and time Last Action: Continued on 11/11/17 163 by CRYSTAL HERRERA Gabapentin* (Neurontin 300MG Cap*) 300 MG CAPSULE 600 MG PO QHS, Ref 0 (Reported) Entered as Reported by JUSTUS RAYO on 07/04/16 1221 Last Taken: At an unknown date and time Last Action: Continued on 11/11/17 163 by CRYSTAL HERRERA Loratadine* (Claritin 10MG Tab*) 10 MG TABLET 10 MG PO QDAYPRN PRN ALLERGIES, Ref 0 ( Reported) Entered as Reported by JUSTUS RAYO on 07/04/16 1223 Last Taken: At an unknown date and time Last Action: Continued on 11/11/17 163 by CRYSTAL HERRERA Losartan Potassium* (Cozaar Tab*) 100 MG TABLET 100 MG PO QDAY, Ref 0 (Reported) Entered as Reported by BART ROBISON on 02/22/16 0314 Last Taken: At an unknown date and time Last Action: Continued on 11/11/17 163 by CRYSTAL HERRERA metoprolol SUCCINATE* (Toprol XL 50MG Tab SA*) 50 MG TAB.ER.24H 100 MG PO QHS, Ref 0 ( Reported) Entered as Reported by JUSTUS RAYO on 07/04/16 1217 Last Taken: At an unknown date and time Last Action: Continued on 11/11/17 163 by CRYSTAL HERRERA Multivitamin* (Multiple Vitamins Daily Tab*) 1 EACH TABLET 1 TAB PO QDAY, Ref 0 ( Reported) Entered as Reported by BART ROBISON on 02/22/16 0318 Last Taken: At an unknown date and time Last Action: Continued on 11/11/17 163 by CRYSTAL HERRERA Nitroglycerin* (Nitrostat 0.4MG Tab Sl*) 0.4 MG TAB.SUBL 0.4 MG SL Q5MPRN PRN CHEST PAIN , Ref 0 (Reported) Entered as Reported by BART ROBISON on 02/22/16 0331 Last Taken: At an unknown date and time Last Action: Continued on 11/11/17 163 by CRYSTAL HERRERA oxyCODONE HCL/ACETAMINOPHEN* (percoCET 5-325 TAB*) 1 EACH TABLET 1 UDTAB PO TIDPRN PRN PAIN, Ref 0 (Reported) Entered as Reported by EBSSY KEYS on 11/11/17 1606 Last Action: Continued on 11/11/17 163 by CRYSTAL HERRERA Pravastatin Sodium* (Pravachol 40MG Tab*) 40 MG TABLET 40 MG PO QHS, Ref 0 (Reported) Entered as Reported by ROSE RODRIGUEZ on 09/16/16 0946 Last Taken: At an unknown date and time Last Action: Continued on 11/11/17 163 by CRYSTAL HERRERA QUEtiapine FUMARATE* (Seroquel Tab*) 400 MG TABLET 400 MG PO QHS, Ref 0 (Reported) Entered as Reported by JUSTUS RAYO on 07/04/16 1219 Last Taken: At an unknown date and time Last Action: Continued on 11/11/17 163 by CRYSTAL HERRERA Vitamin B Complex (B Complex) 1 EACH CAPSULE 1 EACH PO QDAY, Ref 0 (Reported) Entered as Reported by BESSY KEYS on 11/11/17 1603 Last Action: Held on 11/11/17 163 by CRYSTAL HERRERA Conclusion / Plan Plan Pt presents with acute CP, substernal non radiating with improvement with admin of Nitro. Strong hx of CAD incuding BCABG surg in past 1.5 years ago Cardiac: ns1s2, rrr Lungs CTA B/L Trop neg Will admit for ACS rule out. Obtain stress ECHO. Trend trops. EKG showing T wave inversions in leads 1, 2. consult cardio Disclaimer This dictation was created using voice recognition software. Phonetic and/or minor grammatical errors may exist. eSign Date and Time Fernie Segundo DO Verified/Reviewed by 11/11/17 1648 Crystal Herrera CNVerified/Reviewed by 11/11/17 1603 BMP Collected: 11/11/2017 Status: F Source: [facility] 3:17 PM [facility] REPOSITORY Order Comment: PLEASE REDRAW, SPECIMEN GROSSLY HEMOLYZED TYPE CODE TESTS RESULT OUT OF RANGE REFERENCE UNITS LAB L500.40234 136-145 MMOL/L Normal NA 140 LAB L500.82073 3.5-5.1 MMOL/L Normal K 4.0 LAB L500.89919 98-107 MMOL/L Normal CL 104 LAB L500.15920 21-32 MMOL/L Normal CO2 28 LAB L500.81031 5-16 MMOL/L Normal AGAP 8 LAB L500.57704 70-100 MG/DL Normal GLU 99 Result Comment: 70-100- Normal Fasting; 100-125 Impaired Fasting; greater than 126 on more than one result- Diabetes. ADA guidelines. Results may be falsely elevated after the administration of Sulfapyridine. Results may be falsely depressed after the administration of Sulfasalazine. LAB L500.43631 7-26 MG/DL Normal BUN 20 LAB L500.83619 0.670-1.170 MG/DL Normal CREAT 0.866 Result Comment: Patients receiving either N-Acetylcysteine (NAC) or Metamizole prior to venipuncture, may have falsely depressed results. LAB L500.11610 15-24 Normal BUN/CREA 23 LAB L500.54887 8.5-10.1 MG/DL Normal CALCIUM TOTAL 9.0 Performed By: #### L500.22203, L500.35698, L500.32878, L500.39824 #### [facility] [address] [place] [address] GFR EST Collected: 11/11/2017 Status: F Source: [facility] 3:17 PM [facility] REPOSITORY Order Comment: PLEASE REDRAW, SPECIMEN GROSSLY HEMOLYZED TYPE CODE TESTS RESULT OUT OF RANGE REFERENCE UNITS LAB L500.38333 ML/MIN Normal IF non-AFR Greater than AMER 60 LAB L500.46830 ML/MIN Normal IF Greater than AMER 60 Performed By: #### L500.79691, L500.75836, L500.31898, L500.14570 #### [facility] [place] [address] LIVER Collected: 11/11/2017 Status: F Source: [facility] 3:17 PM [facility] REPOSITORY Order Comment: PLEASE REDRAW, SPECIMEN GROSSLY HEMOLYZED TYPE CODE TESTS RESULT OUT OF RANGE REFERENCE UNITS LAB L500.14278 6.0-8.5 GM/DL TP Normal 6.6 LAB L500.93796 3.2-5.0 GM/DL Normal ALBUMIN 3.6 LAB L500.79107 2.2-4.2 GM/DL Normal GLOBULIN 3.0 LAB L500.13543 0.8-2.0 Normal A/G RATIO 1.2 LAB L500.00159 0.2-1.0 MG/DL Normal BILI TOTAL 0.2 LAB L500.59117 0.00-0.20 MG/DL Normal BILI DIRECT 0.09 LAB L500.51840 8-34 U/L Normal SGOT (AST) 25 Result Comment: RESULTS MAY BE FALSELY DEPRESSED AFTER THE ADMINISTRATION OF SULFASALAZINE AND/OR SULFAPYRIDINE. LAB L500.70473 13-61 IU/L Normal SGPT (ALT) 59 Result Comment: RESULTS MAY BE FALSELY DEPRESSED AFTER THE ADMINISTRATION OF SULFASALAZINE AND/OR SULFAPYRIDINE. LAB L500.70238 45-117 U/L Normal ALK PHOS 88 Performed By: #### L500.10174, L500.31134, L500.99280, L500.75376 #### [facility] [place] [address] LIPASE Collected: 11/11/2017 Status: F Source: [facility] 3:17 PM [facility] REPOSITORY Order Comment: PLEASE REDRAW, SPECIMEN GROSSLY HEMOLYZED TYPE CODE TESTS RESULT OUT OF REFERENCE UNITS RANGE LAB L500.52828 73-393 U/L Low LIPASE 66 Performed By: #### L500.71608, L500.64055, L500.67105, L500.91588 #### [facility] [address] [place] [address] MAGNESIUM Collected: 11/11/2017 Status: F Source: [facility] 3:17 PM [facility] REPOSITORY Order Comment: [place]: M TYPE CODE TESTS RESULT OUT OF RANGE REFERENCE UNITS LAB L500.64319 1.6-2.6 MG/DL Normal MAGNESIUM 2.1 Result Comment: Slight Hemolysis, Result may be falsely increased. Performed By: #### L500.21237 #### [facility] [address] [place] [address] TROPONIN I POC Collected: 11/11/2017 Status: F Source: [facility] 2:45 PM [facility] REPOSITORY TYPE CODE TESTS RESULT OUT OF RANGE REFERENCE UNITS LAB L550.49481 0.0-0.06 NG/ML Normal TROPONIN I POC 0.02 Result Comment: 0.0 - 0.06 NG/ML - NON- DIAGNOSTIC (REFERENCE RANGE) 0.07 - 0.59 NG/ML - INDETERMINATE Greater than or equal to 0.6 NG/ML - INDICATIVE OF MYOCARDIAL DAMAGE CBC W/DIFF Collected: 11/11/2017 Status: F Source: [facility] 2:39 PM [facility] REPOSITORY Order Comment: [place]: M TYPE CODE TESTS RESULT OUT OF RANGE REFERENCE UNITS LAB L200.37997 4.5-11.0 K/CU MM WBC Normal 10.6 LAB L200.88715 4.50-6.00 M/CU MM RBC Normal 4.72 LAB L200.29610 13.5-17.5 G/DL HGB Normal 14.0 LAB L200.35862 41.0-53.0 % HCT Normal 41.3 LAB L200.02702 80.0-99.0 fl MCV Normal 87.5 LAB L200.95468 32.0-36.0 GM/DL MCHC Normal 33.9 LAB L200.82099 11-14.5 High RDW 15.3 LAB L200.14279 9.4-12.4 MPV Normal 10.4 LAB L200.71018 150-450 K/CU MM PLT Normal 288 LAB L200.01220 45-75 % NEUTROPHILS Normal % 69.4 LAB L200.03288 Less than 2 % IMMATURE Normal GRAN % 0.5 LAB L200.13622 20-40 % Low LYMPH % 19.3 LAB L200.36599 2-10 % MONOCYTE % Normal 7.9 LAB L200.79006 0-5 % EOSINOPHIL Normal % 2.4 LAB L200.26290 0-2 % BASOPHIL % Normal 0.5 LAB L200.23443 2.0-8.3 K/CU MM NEUTROPHIL Normal ABS 7.30 LAB L200.74773 Less than 2 K/CU MM IMMATR GRAN Normal ABS 0.10 LAB L200.74156 0.9-4.4 K/CU MM LYMPH ABS Normal 2.00 LAB L200.58029 0.1-1.1 K/CU MM MONO ABS Normal 0.80 LAB L200.20992 0-0.5 K/CU MM EOS ABS Normal 0.30 LAB L200.97820 0-0.2 K/CU MM BASO ABS Normal 0.10 LAB L200.42635 Less than 1 % NRBC Normal 0.0 Performed By: #### L200.13197 #### [facility] [address] [phone] EMERGENCY DEPARTMENT Observed: 11/05/2017 Status: F Source: [place] SUMMARY 11:55 AM [facility] REPOSITORY [facility] Medical Records Department [address] [place] [address] Emergency Department Summary 11/05/17 0853 MR#: [id number] Acct: [id number] Name: MAXX KNOTT Rep #: [id number] : 1950 67 From: Bart Perry DO PCP: [place] Status: REG ER - ER Visit Summary Date of Service: 11/05/17 Chief Complaint: Abdominal pain History of Present Illness: The patient is a 67 M who presents with right lower abdominal pain that began this morning. Patient states that his colostomy is enlarged this morning. Patient states this has happened in the past and he was diagnosed with a prolapse of his colostomy. Patient states they have used sugar in the past but that generally does not help. Patient admits to some nausea but denies any vomiting. Patient does admit to some feeling of his heart racing but thinks that is related to the pain. Patient denies any diarrhea or constipation. Patient denies any urinary complaints. Physical Examination: Vital signs are stable. Patient is afebrile. Patient is in no acute distress. Oral mucosa is pink and moist. Neck is supple. There is no JVD noted. Heart was regular rate and rhythm. Lungs are clear and equal bilateral. There is good respiratory effort noted. Abdomen is soft. There is a prolapse of his colostomy. There is some tenderness over the colostomy site. There is no erythema. There is no rebound or guarding noted. Cranial nerves II through XII are intact. There are no focal motor or sensory deficits noted. Emergency Department Course and Treatment: Patient was given an injection of morphine and Zofran. Patient was reclined and the colostomy was reduced to the point where the patient stated his colostomy appears normal. Patient felt better. Patient was instructed to follow-up with his primary care physician and surgeon as scheduled. Patient understood and was agreeable with plan. All questions were answered. Disposition: Discharged home Impression: Colostomy prolapse This note was generated with Atosho dictation software. It may contain incorrect words, spelling, and punctuation that were not noted in review of the chart prior to signing ED Disposition - Plan for ED Patient: Disposition: Home or Assisted Living Chief Complaint: Abd Pain Diagnosis: Colostomy prolapse Instructions: ED Prolapse Rectal Referrals: [facility] [Primary Care Provider] - What to do if you have Problems For any increased pain, shortness of breath, bleeding, nausea or vomiting, chest pain, or any unexpected problems, contact your Primary Care Provider. Call [facility] ([phone]) or report to the closest Emergency Room. Call 911 if necessary. 11/05/17 1155 <Electronically signed by Bart Perry DO> Date Bart Perry DO Cosigner Signature (If Indicated): Date CC: [facility] ED DOC Observed: 11/04/2017 Status: UNK Source: [facility] 8:42 PM [facility] REPOSITORY This is a preliminary report only, as the practitioner review and authentication has not occurred. ED DOC Observed: 11/04/2017 Status: UNK Source: [facility] 8:42 PM [facility] REPOSITORY PHYSICIAN ASSESSMENT RECORDS : FlexChartData Event Time: 11/04/2017 18:45 Status: Signed [facility] Maxx Knott [[id number]] Attending Physician 67 / M / 1950 Chart (V2b) Chart created at 11/04/2017 18:42 by Maxim Hendrix Chart closed at 11/04/2017 20:16 Entry in Emergency Department at 11/04/2017 17:59, departure at 11/04/2017 20:42 Patient Name: Maxx Knott Record Number: [id number] Date: 11/04/2017 18:42 Entered Department at: 11/04/2017 17:59 Patient Seen at: 11/04/2017 18:17 Historian: Patient PCP: [place] (Radhames Triana) Chief Complaint:Fall from same level today onto colostomy bag. On Plavix. Bowel exposed Triage Note reviewed and Initial Vital Signs reviewed. Temperature: 98.1 F (36.7 C). Pulse: 80. Respiratory Rate: 18. Blood-pressure: 183/77. Oxygen Saturation: 94%. History of Present Illness: 67-Year-old male presents to the emergency department today secondary to prolapse of bowel from colostomy site. Patient had colostomy performed in June 2016. Today he tripped on a rope and fell down, struck his abdomen when he fell and states he prolapse a segment of bowel at that time. She had a recent prolapse as well that was able to be reduced. He is following with [facility] PATIENT NAME: MAXX KNOTT [address] [facility] [address] MEDICAL REC #: [id number] [place] [address] EMERGENCY DEPARTMENT CHART EMERGENCY DEPARTMENT PHYSICIAN [facility] and is supposed to be having a reversal. He has a moderate segment of bowel that is external at all times at baseline. Patient denies any other complaints. patient did not suffer any injuries with the fall with the exception of the prolapsed bowel. He did not hit his head. Review of Systems. All other systems reviewed and negative.. Past History, Medications, Allergies, Social History and Family History reviewed in nurses note. Medications: Reviewed RN Note. Allergies: Reviewed RN Note Altace (Ramipril)(Get Sick), CRESTOR (Get Sick), Ramipril(Get Sick), Simvastatin(Nausea and Vomiting), ATORVASTATIN (Get Sick), MOXIFLOXACIN (Difficulty Breathing), VOLTAREN (Get Sick), HYDROCHLOROTHIAZIDE (Get Sick) Altace (Ramipril)(Get Sick), CRESTOR (Get Sick), Ramipril(Get Sick), Simvastatin(Nausea and Vomiting), ATORVASTATIN (Get Sick), MOXIFLOXACIN (Difficulty Breathing), VOLTAREN (Get Sick), HYDROCHLOROTHIAZIDE (Get Sick) Social History: Reviewed RN Note. Family History: Reviewed RN Note Physical Examination: General: Alert; Oriented x 3. NAD HEENT: Head: Atraumatic. Eyes: PERRL; . Oropharynx / Throat: Moist mucous membranes. Neck: Supple; FROM, no pain Respiratory: No Resp Distress and Normal Breath Sounds Cardio-Vascular: No murmur, No rub and RRR Abdomen: Normal Bowel Sounds and Soft; Non-distended. large area prolapsed bowel noted within colostomy bag. All tissue is pink and well perfused. Back: Non-tender Extremity: Normal Equal pulses; Cap refill andlt; 2 sec. extremities nontender, no evidence of trauma Neurological: Alert, Oriented X3 Skin: Warm and Dry Psychological: Mood/Affect Normal Medical Decision Making [facility] PATIENT NAME: MAXX KNOTT [address] [facility] [address] MEDICAL REC #: [id number] [place] [address] EMERGENCY DEPARTMENT CHART EMERGENCY DEPARTMENT PHYSICIAN After evaluation, manual reduction attempted but patient was having too much discomfort to tolerate this. I spoke with Dr. Romano from general surgery, he requested granulated sugar be applied to the prolapsed segment followed by repeat attempt at reduction. Patient was given Dilaudid for pain, patient was actually able to almost completely self reduce the segment of bowel after pain was improved. I was able to further reduce the remaining segment of bowel. Patient still does have some exposed/mildly prolapsed bowel and he states this is his baseline. He again is following with [facility] for this. He is pain-free at this time and states he feels ready to be discharged home. He will return if he has any further concerns. He requested an abdominal binder to help keep abdominal contents in place, abdominal binder was applied on the patient prior to discharge. Consults: 18:30: Dr. Romano; Surg; requested granulated sugar be applied on the prolapsed section of the bowel and reduction again be attempted after approximately 15-30 minutes. Additional Information: Discussed Diagnosis and Follow-Up with Patient. Clinical Impression: 1. acute bowel prolapse from colostomy Disposition: Discharged . KENNEY completed. I was the primary ED attending.. : Discharge Report Event Time: 11/04/2017 20:17 ===DISCHARGE REPORT=== : Maria M Event Time: 11/04/2017 18:45 [facility] PATIENT NAME: MAXX KNOTT [facility] [address] MEDICAL REC #: [id number] [place] [address] EMERGENCY DEPARTMENT CHART EMERGENCY DEPARTMENT PHYSICIAN : Discharge Report Event Time: 11/04/2017 20:17 Status: Draft Reasons to Return to the ER: You must return to the ER for any new, worsening or changing symptoms, or if you feel more ill or sick in any way. This is the most important thing to remember. Follow-up: The care you received in the ER was given on an emergency basis only, and it is often not possible to completely treat or diagnose a problem in a single ER visit. You must see your follow-up doctor for a recheck within a week unless you receive instructions with a different timeframe for follow-up. Please follow all your discharge instructions. Medications: Unless the ER doctor tells you differently, you should take all your regular medications and any new medications prescribed today. Because it is not possible for the ER doctor to review all of your medication side effects or interactions, you must review possible side effects and interactions with your pharmacist when you get your prescriptions filled. EKG and Radiology Results: A straightening machine operator or radiologist will review any EKG or radiology results provided by the ER doctor. We will contact you if the results in the final EKG or radiology reports require a change in treatment. Culture Results: Cultures may have been ordered during your ER visit. We will contact you if the culture results require a change in treatment. Referrals: [facility] PATIENT NAME: MAXX KNOTT Dr[address] MEDICAL REC #: [id number] [place] [address] EMERGENCY DEPARTMENT CHART EMERGENCY DEPARTMENT PHYSICIAN Most referrals to specialists come from the on- call list You should make your regular doctor aware of any referrals before you schedule the appointment so that they are aware and can make suggestions DIAGNOSIS: acute bowel prolapse from colostomy INSTRUCTIONS: return to the emergency department immediately if you have any further issues with prolapsed bowel, or if you have any other new or concerning symptoms. Continue following closely with [facility] for management of your colostomy issues. REFERRAL Your regular doctor(s) Please call the above number to schedule a follow-up appointment. 2-3 days MEDICATIONS At this time we have no recommendations that you stop taking any medications, or start taking any new ones. COMMENTS: Patient Satisfaction: Within the first few days after your visit, you will receive an email and/or phone call regarding your visit. We value your feedback, and would appreciate it if you would take the time to complete this short survey. If you receive a call, it will be between 6p and 8p. My signature below indicates that I have received and understand the oral instructions regarding my medical problem. I also acknowledge receipt of this written instruction sheet including a list of major [facility] PATIENT NAME: MAXX KNOTT Dr[address] MEDICAL REC #: [id number] [place] [address] EMERGENCY DEPARTMENT CHART EMERGENCY DEPARTMENT PHYSICIAN tests and procedures ordered during my visit. I will arrange for follow-up care as indicated by these instructions and referrals. This signed original will be kept in my medical record. Your signature below indicates consent for Case Management to [facility] in an effort to meet your ongoing healthcare needs. This will allow forcontinuity of care once you leave the Emergency Department. This exchange of informationwill include, but not be limited to, disclosure of your patient information and possible release of records. 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 On Plavix. Eviseration of bowel in colostomy bag Arrival Date: 11/04/2017 17:59 Triage Date: 11/04/2017 18:01 Mode of Arrival: *Privately Owned Vehicle [facility] PATIENT NAME: MAXX KNOTT [address] MEDICAL REC #: [id number] [place] [address] EMERGENCY DEPARTMENT CHART EMERGENCY DEPARTMENT PHYSICIAN Transfer From: * Home WC: N Language: [place] Citizen Transport: Ambulatory/Walk In BED D46 In: 11/04/2017 18:06:02 11/04/2017 18:06:02 JIF D46 (Removed From) Out: 11/04/2017 20:42:40 11/04/2017 20:42:40 JL[facility] PROVIDERS MITCHELL SORENSON Provider Contact: 11/04/2017 18:11:[address] [facility] End: DO Maxim Hendrix Provider Contact: 11/04/2017 18:17:26 [facility] End: TRIAGE HISTORY ALLERGIES Allergic To: CRESTOR - Get Sick 11/04/2017 18:03 JIF Allergic To: Ramipril - Get Sick 11/04/2017 18:03 JIF Allergic To: Simvastatin - Nausea and Vomiting 11/04/2017 18:03 JIF Allergic To: ATORVASTATIN - Get Sick 11/04/2017 18:03 JIF Allergic To: MOXIFLOXACIN - Difficulty Breathing 11/04/2017 18:03 JIF Allergic To: VOLTAREN - Get Sick 11/04/2017 18:03 JIF [facility] PATIENT NAME: MAXX KNOTT [address] MEDICAL REC #: [id number] [place] [address] EMERGENCY DEPARTMENT CHART EMERGENCY DEPARTMENT PHYSICIAN Allergic To: HYDROCHLOROTHIAZIDE - Get Sick 11/04/2017 18:03 JIF ILLNESS Illness: CHF 11/04/2017 18:03 JIF Illness: COPD 11/04/2017 18:03 JIF Illness: Angina/CAD 11/04/2017 18:03 JIF Illness: Hypertension 11/04/2017 18:03 JIF Illness: Sleep Apnea 11/04/2017 18:03 JIF Illness: High Cholestrol 11/04/2017 18:03 JIF Illness: Diverticulitis 11/04/2017 18:03 JIF PAST SURGERY HIST Surgery: Cardiac Bypass 11/04/2017 18:03 JIF Surgery: Appendectomy 11/04/2017 18:03 JIF Surgery: COLOSTOMY 11/04/2017 18:03 JIF Surgery: triple heart bypass 11/04/2017 18:03 JIF PAST SOCIAL HIST Social History: Communicates without difficulty 11/04/2017 18:03 JIF Social History: Lives with family or significant other 11/04/2017 18:03 JIF Social History: Alcohol - None 11/04/2017 18:03 JIF Social History: Recreational Drugs - None 11/04/2017 18:03 JIF Social History: Smoker-1/2-3/4 PPD 11/04/2017 18:03 JIF Social History: Denies Domestic Violence 11/04/2017 18:03 JIF Social History: Denies thoughts of self harm. 11/04/2017 18:03 JIF [facility] PATIENT NAME: MAXX KNOTT [address] MEDICAL REC #: [id number] [place] [address] EMERGENCY DEPARTMENT CHART EMERGENCY DEPARTMENT PHYSICIAN Social History: Have you traveled in the past month? Where no 11/04/2017 18:03 JIF IMMUNIZATIONS Immunization: *Not Applicable 11/04/2017 18:03 JIF NURSING ASSESSMENT ASSESSMENT NOTES 11/04/2017 19:46 Pt reports he was trying to put on his robe when he got tangled and fell onto his abdomen. Pt reports pain and protruding of bowel from ostomy. Pt denies hitting his head, loc, and blood thinner use. Pt also denies n/v. Pt aandamp;ox3. Pt with easy, non-labored respers. Skin warm, dry. 11/04/2017 19:47 [facility] TREATMENT 11/04/2017 17:59 Trauma Time Activation - 3. Trauma Evaluation Called @ 1759 11/08/2017 11:[address] [facility] 11/04/2017 18:31 Physician Call - called at 1822 11/04/2017 18:31 [facility] 11/04/2017 18:31 Physician Call - answered at 1830 11/04/2017 18:31 [facility] 11/04/2017 19:43 Hourly Rounding - Rounding 11/04/2017 19:[address] [facility] Elimination/Toileting Y Position Comfortable Y Safe Environment Y Fall Risk Change N 11/04/2017 19:43 Patient Interaction - Allergy Band on Pt. 11/04/2017 19:[address] [facility] 11/04/2017 19:43 Patient Interaction - Call light [facility] PATIENT NAME: MAXX KNOTT [address] MEDICAL REC #: [id number] [place] [address] EMERGENCY DEPARTMENT CHART EMERGENCY DEPARTMENT PHYSICIAN placed within reach. 11/04/2017 19:[address] [facility] 11/04/2017 19:43 Patient Interaction - Introduce self to Patient. 11/04/2017 19:44 BN 11/04/2017 19:43 Patient Interaction - Name Band on Pt 11/04/2017 19:[address] [facility] 11/04/2017 19:43 Primary DOC Guide - A. Patient History 11/04/2017 19:[address] 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 Geriatric (65+) Fall Risk Assessment 11/04/2017 19:[address] [facility] STEADI Score Total 0 STEADI Fall Assessment Score of 4 or greater? No 11/04/2017 19:44 Primary DOC Guide - D. Psychosocial Assessment 11/04/2017 19:44 BN Over the Last 2 weeks, how often have you had little interest or pleasure in doing things (0) Not at All Is Psychosocial Assessment Score 3 or more? If score is 3 or more please consult ED Navigator! No Total Psychosocial Assessment Score 0 Over the last 2 weeks, how often have you been feeling down, depressed or hopeless (0) Not at All 11/04/2017 19:44 Primary DOC Guide - E. Family Violence Assessment 11/04/2017 19:44 BN Within the past year, has anyone ever pushed, shoved, slapped, choked, hit, punched or kicked you: No Within the past year, has anyone ever pressured or forced you to have sexual activities when you did not want to: No Do you feel safe and well cared for: Yes Is there a partner from a previous or current [facility] PATIENT NAME: MAXX KNOTT [address] [place] MEDICAL REC #: [id number] [place] [address] EMERGENCY DEPARTMENT CHART EMERGENCY DEPARTMENT PHYSICIAN relationship that is making you feel unsafe now: No Family Violence Clinical Observation All Negative Except 11/04/2017 20:41 Hourly Rounding - Rounding 11/04/2017 20:42 JLTA Elimination/Toileting N Pain 6 Position Comfortable Y Safe Environment Y Assessment Note abd Fall Risk Change N 11/04/2017 20:41 Admit/Discharge - Ambulated with steady gait home 11/04/2017 20:42 JLTA 11/04/2017 20:41 Admit/Discharge - Discharge 11/04/2017 20:42 JLTA Notes: verbalized understanding. d/c papers reviewed and given. 11/04/2017 20:41 Discharge - Heplock removed dressing applied no bleeding noted 11/04/2017 20:42 JLTA 11/04/2017 20:42 Discharge - Instructions reviewed with pt and verbalizes understanding 11/04/2017 20:42 JLTA 11/04/2017 20:42 Discharge - Printed discharge instructions given to pt. 11/04/2017 20:42 JLTA MEDICATIONS IV IV Fluid: B 11/04/2017 19:14 11/04/2017 19:14 TMBC Line #: 1 Fluid: Saline Lock Rate: ml/hr Location: hand left Ndl Gauge: 20 # Attempts: 1 Notes: Patent, flushed with saline. IV Fluid: E 11/04/2017 20:40 11/04/2017 20:40 JLTA Line #: 1 Rate: ml/hr Location: hand left [facility] PATIENT NAME: MAXX KNOTT [address] [place] MEDICAL REC #: [id number] [place] [address] EMERGENCY DEPARTMENT CHART EMERGENCY DEPARTMENT PHYSICIAN Ndl Gauge: 20 # Attempts: 1 Notes: cath intact I AND O VITALS VS-ROUTINE Time: 11/04/2017 18:01 B/P: 183/77 - Left Upper Arm - Sitting - Machine Pulse: 80 - Cloth Framer Resp: 18 Sa02: 94 Room Air Temp: 98.10 F - Oral 11/04/2017 18:03 JIF VS-Pain Time: 11/04/2017 18:01 11/04/2017 18:03 JIF VS-GCS Time: 11/04/2017 18:01 Visual: 4 Verbal: 5 Motor: 6 GCS Total: 15 11/04/2017 18:03 JIF VS-HT/WT Time: 11/04/2017 18:01 Weight: 88.5 kg Actual 11/04/2017 18:03 JIF VS-Visual Time: 11/04/2017 18:01 11/04/2017 18:03 JIF VS-FHT Time: 11/04/2017 18:01 11/04/2017 18:03 JIF VS-Notes Time: 11/04/2017 18:01 map 111 11/04/2017 18:03 JIF VS-ROUTINE Time: 11/04/2017 20:39 B/P: 187/76 - Left Upper Arm - Sitting - Machine Pulse: 73 - Monitor Resp: 18 Sa02: 96 Room Air 11/04/2017 20:40 JLTA VS-Pain Time: 11/04/2017 20:39 11/04/2017 20:40 JLTA VS-GCS Time: 11/04/2017 20:39 Visual: 4 Verbal: 5 Motor: 6 GCS Total: 15 11/04/2017 20:40 JLTA VS-HT/WT Time: 11/04/2017 20:39 11/04/2017 20:40 JLTA VS-Visual Time: 11/04/2017 20:39 11/04/2017 20:40 JLTA VS-FHT Time: 11/04/2017 20:39 11/04/2017 20:40 JLTA VS-Notes Time: 11/04/2017 20:39 map-109 11/04/2017 20:40 JLTA ORDERS Discharge patient 11/04/2017 20:18 N/A [facility] PATIENT NAME: MAXX KNOTT [address] [place] MEDICAL REC #: [id number] [place] [address] EMERGENCY DEPARTMENT CHART EMERGENCY DEPARTMENT PHYSICIAN Ordered: 11/04/2017 20:16 By . Other Reviewed: 11/04/2017 20:18 By . Other *Other Nurse: abdominal binder 11/04/2017 20:01 N/A Ordered: 11/04/2017 19:37 By Maxim Hendrix Completed Time: 11/04/2017 20:01 By Maxim Hendrix IV hep lock 11/04/2017 19:17 N/A Ordered: 11/04/2017 18:20 By Maxim Hendrix Completed Time: 11/04/2017 19:17 By Maxim Hendrix Dilaudid (IV)*(2mg/ml) DOSE: 1 mg IV 11/04/2017 19:17 N/A Ordered: 11/04/2017 18:20 By Maxim Hendrix Completed Time: 11/04/2017 19:17 By Maxim Hendrix Zofran (IV)*(2mg/ml) DOSE: 4 mg IV 11/04/2017 19:17 N/A Ordered: 11/04/2017 18:20 By Maxim Hendrix Completed Time: 11/04/2017 19:17 By Maxim Hendrix DISCHARGE Diagnosis: acute bowel prolapse from colostomy 11/04/2017 20:17 Disposition: Time: 11/04/2017 20:16 Discharge Time: 11/04/2017 20:42 Type: Discharge Condition: Stable for admission/discharge/transfer after emergency evaluation/treatment Category: *NOT APPLICABLE Referral: 11/04/2017 20:17 Admit Physician: . Other PRESCRIPTIONS CHARGES [facility] PATIENT NAME: NIKOSMAXX B [facility] [place] MEDICAL REC #: [id number] [place] [address] EMERGENCY DEPARTMENT CHART EMERGENCY DEPARTMENT PHYSICIAN SIGNATURE Maxim Hendrix DO EDS RICH UGALDE RN JIF DAVE MARQUEZ RN JLTA JOSEPH HAIR [facility]CHO SORENSON RN BN [facility] PATIENT NAME: MAXX KNOTT [address] [place] MEDICAL REC #: [id number] [place] [address] EMERGENCY DEPARTMENT CHART EMERGENCY DEPARTMENT PHYSICIAN ED NOTE Observed: 11/04/2017 Status: COMPLETED Source: [place] 12:14 PM [facility] REPOSITORY HNO ID: [id number] Author: Vickie KingRn) MITCHELL Griffith Service: Emergency Medicine Author Type: Registered Nurse Type: ED Notes Filed: 11/04/2017 12:15 PM Note Text: Educated pt on ways to help reduce stoma if/when it becomes prolapsed. Pt verbalized understanding and demonstrated how to reduce stoma. 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 The patient has had many ED visits for the same. No vomiting or diarrhea. The patient is making stool. 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 - Peritonitis ([facility]) PAST SURGICAL HISTORY Procedure Laterality Date - APPENDECTOMY HX - COLOSTOMY 07/2016 Diverting Loop Colostomy of the Transverse Colon - HEART SURGERY HX triple bypass 10 yrs ago - PPM IMPLANT - STENT - CORONARY FAMILY HISTORY Problem Relation Age of Onset - Coronary Artery Disease Father - Hyperlipidemia Father Social History Social History Main Topics - Smoking status: Current Every Day Smoker Packs/day: 0.50 Years: 35.00 Types: Pipe, Cigarettes - Smokeless tobacco: Never Used Comment: Quit cigarettes 11-16-16 now smoking 4 pipes as of 04-18-17 - Alcohol use No - Drug use: No - Sexual activity: Not Currently ALLERGIES Allergen Reactions - Altaseptic Unknown - Brilinta [Ticagrelo* Unknown - Crestor [Rosuvastat* Myalgia - Hctz [Amiloride-Hyd* Swelling - Moxifloxacin Swelling - Other [place]-3s Unknown brelinta - Ramipril Swelling Other reaction(s): Facial swelling - Simvastatin Myalgia Other reaction(s): Facial swelling - Voltaren [Diclofena* Unknown Review of Systems Constitutional: Negative for chills and fever. HENT: Negative for sore throat. Eyes: Negative for photophobia. Respiratory: Negative for cough and shortness of breath. Cardiovascular: Negative for chest pain. Gastrointestinal: Positive for abdominal pain. Negative for diarrhea, nausea and vomiting. Genitourinary: Negative for urgency. Musculoskeletal: Negative for back pain. Skin: Negative for rash. Neurological: Negative for dizziness, light-headedness and numbness. Psychiatric/Behavioral: Negative for confusion. All other systems reviewed and are negative. Physical Exam BP 153/66 Pulse 84 Temp (Src) 98.4 (Oral) Resp 20 SpO2 95% Physical Exam Constitutional: He appears well-developed. HENT: Head: Normocephalic. Eyes: Pupils are equal, round, and reactive to light. Neck: Normal range of motion. Cardiovascular: Normal rate and regular rhythm. Pulmonary/Chest: Effort normal and breath sounds normal. Abdominal: Abdomen is soft. Large prolapse of colostomy noted. Procedures Medical Decision Making MDM ED Course / Clinical Impression The ostomy was cleaned by nursing staff. I placed sugar on the ostomy, and it immediately retracted inwards. The ostomy is healthy and shows no sign of ischemia. I then did an OARRS review and noted that the patient is on chronic long-term narcotics. 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 It is also possible that the patient is eliciting drug-seeking behavior, and using his chronic prolapse as an excuse for narcotics. However, this is my first time meeting the patient. I will give him the benefit of the doubt. However, I did explain to the patient that he is likely experiencing increased pain from his chronic narcotic use. Clinical Impressions as of Nov 04 1140 Congestive heart failure, unspecified HF chronicity, unspecified heart failure type (HCC) Colostomy care (HCC) Chronic narcotic use Diverticulitis Abdominal pain, unspecified abdominal location Prolapse of intestine Plan SIGNATURE: MD Cassi Da Silva MD 11/04/17 1144 ED NOTE Observed: 11/04/2017 Status: COMPLETED Source: [place] 11:30 AM [facility] REPOSITORY HNO ID: [id number] Author: Mine Wesley Service: Emergency Medicine Author Type: Bed Setter and Scraper Meat Type: ED Notes Filed: 11/04/2017 11:35 AM Note Text: Labs drawn but held ED NOTE Observed: 11/04/2017 Status: COMPLETED Source: [place] 11:26 AM [facility] REPOSITORY HNO ID: [id number] Author: Vickie KingRn) MITCHELL Griffith Service: Emergency Medicine Author Type: Registered Nurse Type: ED Notes Filed: 11/04/2017 11:27 AM Note Text: Reviewed and agree with robin note. Stoma is beefy red, tissue healthy. Pt diffusely tender around stoma site, no other concerns at this time. CONSULTATION Observed: 11/03/2017 Status: F Source: [place] 5:02 PM [facility] REPOSITORY [facility] Medical Records Department [address] [place] [address] Consultation 11/01/171947 MR#: [id number] Acct: [id number] Name: MAXX KNOTT Rep #: [id number] : 1950 67 From: Mariza Redd MD PCP: [facility] [place] Status: DEP ER Y Location: ED - Consult Date of Consult: 11/01/17 - Reason for Consult Chief Complaint: colostomy prolapse History of Present Illness: 67 y/o WM presents with colostomy prolapse. This has happened multiple time in past, patient has presented to ED for this, at multiple locations. Had transverse loop colostomy on 07/25/16, there is report of a Cherry's procedure July 2016 for perforated diverticulitis but there is no documentation for this. Patient has been given multiple opportunities for follow up with a surgeon for takedown colostomy, but patient has been noncompliant with his follow up appointments. Difficulties in contacting patient are also noted. He has known parastomal hernia. He denies fevers. Denies noting gross blood in stools. He is known to have chronic abdominal pain and has this complaint documented in multiple patient encounters. 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 CABG PPM implantation CAD stent placement Medications: tamsulosin ER (FLOMAX) 0.4 mg cp24 ondansetron (ZOFRAN) 4 mg tablet oxyCODONE-acetaminophen (PERCOCET) 10-325 mg tablet vitamin B complex (B COMPLEX ORAL) aspirin, enteric coated (ASPIRIN, ENTERIC COATED) 81 mg EC tablet cyclobenzaprine (FLEXERIL) 10 mg tablet amLODIPine (NORVASC) 10 mg tablet loratadine 10 mg cap pravastatin (PRAVACHOL) 40 mg tablet gabapentin (NEURONTIN) 300 mg capsule metoprolol succinate ER (TOPROL XL) 100 mg Tb24 QUEtiapine (SEROQUEL) 200 mg tablet MULTIVIT WITH IRON,MINERALS (MULTIVITAMIN AND MINERALS ORAL) albuterol HFA (PROVENTIL HFA, VENTOLIN HFA) 90 mcg/actuation inhaler fluticasone (FLONASE) 50 mcg/actuation nasal spray nitroglycerin sublingual (NITROSTAT) 0.4 mg SL tablet losartan (COZAAR) 100 mg tablet furosemide (LASIX) 20 mg tablet Allergies: altaseptic brilinta crestor hctz moxifloxacin ramipril simvastatin voltaren Social history: TOB use 1ppd for >40y Review of Systems: General - denies fevers Cardiovascular has known CAD s/p CABG, s/p stent placement Pulmonary has shortness of breath with exertion, denies coughing up blood Gastrointestinal as per HPI, denies blood in stools Neurological denies seizures Genitourinary has history of intermittent urinary hesitency, denies blood in urine Hematological denies spontaneous/prolonged bleeding Skin denies open nonhealing wounds Musculoskeletal has chronic back pain taking gabapentin for this Endocrine denies diabetes Psychological denies hallucinations, history of suicidal attempts Physical examination: Vital signs Temp 98.5F BP 159/69 General WD/WN WM in no apparent distress, alert and oriented, not septic appearing HEENT Normocephalic. EOM intact with sclera clear and no icterus noted. Neck is supple with no jugular venous distention noted. Trachea is midline. Lungs no labored breathing noted, such as retractions. No cough heard. Heart regular rate Abdomen soft and benign. but with colostomy prolapse and parastomal hernia, no gangrene of mucosa noted Extremities no calf tenderness noted. Genitourinary/Rectal deferred Skin normal skin integrity. Neurological no focal deficits noted Psychological normal affect, patient is calm and appropriate Impression: colostomy prolapse - painful, chronic known parastomal hernia Discussion/Plan: I have discussed the above with the patient. Sugar applied to area. Colostomy was then gently reduced in the ED. This took some time as gentle pressure had to be applied. Prolapse ostomy cap was then placed, by creating smaller opening of ostomy appliance and then placed over ostomy site. Patient tolerated procedure well. Patient to follow up with his primary physician Time spent - face to face with patient to perform above services - 40 minutes. 11/03/17 1702 <Electronically signed by Mariza Redd MD> Date Mariza Redd MD Cosigner Signature (if applicable): Date CC: [facility] Signed EMERGENCY DEPARTMENT Observed: 11/02/2017 Status: F Source: [place] SUMMARY 8:04 PM [facility] REPOSITORY [facility] Medical Records Department [address] [place] [address] Emergency Department Summary 11/02/17 0539 MR#: [id number] Acct: [id number] Name: MAXX KNOTT Rep #: [id number] : 1950 67 From: Milana Gaytan MD PCP: [place] [place] Status: DEP ER - ER Visit Summary Date of Service: 11/02/17 Chief Complaint: Colostomy bag complication History of Present Illness: The patient is a 67 M with colostomy who presents after his bag fell off. Patient normally has home health help him with it, however yesterday home health was not there to replace the back for him. He had it done at the hospital, and tonight the bag fell off while he was asleep. He rolled over and found that had fallen off. Patient presents for replacement of the bag. He complains of some pain at the colostomy site but denies any other complaints. Patient states he has been having some prolapse of his colostomy site on and off for the last 6 months. There is a plan to reverse his colostomy next month. He states his physicians are aware of the intermittent prolapse. Physical Examination: Patient is awake and alert, well-appearing. Clothing and bed have ostomy contents spilled on them. Patient has partial prolapse of intestines through the colostomy site. Mild tenderness but no induration, exudate or swelling around the colostomy site. New bag in place with brown liquid contents. Remainder of exam unremarkable. Test Results: [] Emergency Department Course and Treatment: Patient presents for replacement of his colostomy bag after the current bag fell off during the night. Bag was easily replaced. Discussed with patient the appearance that there is some prolapse of his intestine through the colostomy site, and he states that this is an ongoing issue and it will increase and decrease in size throughout the day. His doctors are aware of it and they intend to reverse it next month. Patient had no other concerns other than having the bag replaced. He did request a Percocet for pain. He was discharged home with a ride. Treatment Plan: [] Disposition: [] Impression: Colostomy bag replacement This note was generated with Atosho dictation software. It may contain incorrect words, spelling, and punctuation that were not noted in review of the chart prior to signing ED Disposition - Plan for ED Patient: Chief Complaint: Other, Pain/Inj Referrals: [facility] [Primary Care Provider] - What to do if you have Problems For any increased pain, shortness of breath, bleeding, nausea or vomiting, chest pain, or any unexpected problems, contact your Primary Care Provider. Call [facility] ([phone]) or report to the closest Emergency Room. Call 911 if necessary. 11/02/172003 <Electronically signed by Milana Gaytan MD> Date Milana Gaytan MD Cosigner Signature (If Indicated): Date CC: [facility] DISCHARGE INSTRUCTION Observed: 11/02/2017 Status: F Source: [place] 8:04 PM [facility] REPOSITORY [facility] Medical Records Department [address] [place] [address] Discharge Instruction 11/02/17 0542 MR#: [id number] Acct: [id number] Name: MAID CLEANING COOKINGMAXX Rep #: [id number] : 1950 67 From: Milana Gaytan MD PCP: [facility] [place] Status: DEP ER ED Disposition - Plan for ED Patient: Disposition: Home or Assisted Living Chief Complaint: Other, Pain/Inj Instructions: Discharge Instructions for Colostomy Referrals: [facility] [Primary Care Provider] - As Needed What to do if you have Problems For any increased pain, shortness of breath, bleeding, nausea or vomiting, chest pain, or any unexpected problems, contact your Primary Care Provider. Call [facility] ([phone]) or report to the closest Emergency Room. Call 911 if necessary. 11/02/172003 <Electronically signed by Milana Gaytan MD> Date Milana Gaytan MD Cosigner Signature (If Indicated): Date CC: [facility] EMERGENCY DEPARTMENT Observed: 11/02/2017 Status: F Source: [place] SUMMARY 1:20 AM [facility] RE[facility]ITORY [facility] Medical Records Department [address] [place] [address] Emergency Department Summary 11/01/17 1628 MR#: [id number] Acct: [id number] Name: MAXX KNOTT Rep #: [id number] : 1950 67 From: Gabriel Mandujano MD PCP: [place] [place] Status: DEP ER - ER Visit Summary Date of Service: 11/01/17 Chief Complaint: Prolapse of colostomy History of Present Illness: The patient is a 67 M who goes to the [facility]. He reports he had a colostomy placed approximately 1 year ago at [facility] for diverticulitis. He does not remember the name of the surgeon. Reports at 1130 this morning the colostomy prolapsed into the bag. He states that he has an aching, stabbing pain is 1010 worsening a 10 currently. Is worsened by nothing relieved by nothing. Is been nausea and vomited once. No blood in his emesis. His colostomy is draining normally. There is been no blood in this. No dysuria or frequency. Physical Examination: Vitals: Stable. Afebrile. General: Well-nourished and well-developed. Head: Normocephalic atraumatic. Neck: Supple, no lymphadenopathy. No JVD. Nontender. Cardiovascular: Regular rate and rhythm. No murmurs. Respiratory: No respiratory distress. Clear to auscultation bilaterally. Abdominal: Soft, moderate tenderness palpation surrounding the right lower quadrant, nondistended, normal bowel sounds. A significant amount of prolapse into the colostomy bag without blood. No guarding, rebound, or peritoneal signs. Back: Nontender. Extremities: Nontender, no edema. Skin: Normal color, no rash. Neurologic: Alert and oriented 3. Cranial nerves II through XII are intact. Normal strength and sensation. Psych: Normal affect. Test Results: CBC is remarkable for segment neutrophils of 73 and lymphocytes 17. Chem-7 is normal. Lactic acid is 1.4. Emergency Department Course and Treatment: Patient had an IV placed. Is given morphine and Zofran IV. He had sugar placed on the prolapsed bowel. Treatment Plan: Patient was discussed with Dr. Redd. She saw the patient in the emergency department and was able to reduce the prolapse and place a new colostomy bag. Patient will be discharged instructions to follow-up with his surgeon as soon as possible. Return to the emergency department for any worsening symptoms. Disposition: To home in improved and stable condition. Impression: 1. Colostomy prolapse. This note was generated with Atosho dictation software. It may contain incorrect words, spelling, and punctuation that were not noted in review of the chart prior to signing ED Disposition - Plan for ED Patient: Chief Complaint: General Illness Instructions: Discharge Instructions for Colostomy Prescriptions: Hydrocodone Bitart/Apap 5-325 [[place] 5MG-325MG] 1 tablet PO Q6H PRN PRN 3 Days #10 tablet PRN Reason: Pain Additional Instructions: Follow-up with your surgeon as soon as possible. What to do if you have Problems For any increased pain, shortness of breath, bleeding, nausea or vomiting, chest pain, or any unexpected problems, contact your Primary Care Provider. Call [facility] ([phone]) or report to the closest Emergency Room. Call 911 if necessary. 11/02/17 0120 <Electronically signed by Gabriel Mandujano MD> Date Gabriel Mandujano MD Cosigner Signature (If Indicated): Date CC: [facility] CBC W/DIFF, AUTOMATED Collected: 11/01/2017 Status: F Source: [place] 3:43 PM [facility] REPOSITORY TYPE CODE TESTS RESULT OUT OF RANGE REFERENCE UNITS LAB L100.1000 4.4-11.0 K/mm3 Normal WBC 8.9 LAB L100.1200 4.6-6.2 M/mm3 Normal RBC 4.78 LAB L100.1300 13.0-16.5 g/dl Normal HGB 14.7 LAB L100.1400 40-54 % Normal HCT 42.9 LAB L100.1500 80-94 fL Normal MCV 89.7 LAB L100.1600 27.0-32.0 pg Normal MCH 30.8 LAB L100.1700 32-36 g/gl Normal MCHC 34.3 LAB L100.1810 11.6-14.6 % High RDW CV 15.1 LAB L100.1820 35.1-43.9 fl High RDW SD 49.7 LAB L100.1900 150-450 K/mm3 Normal PLT 331 LAB L100.2000 6.2-12.0 fl Normal MPV 9.9 LAB L100.2100 47-70 % High NEUT% 73.3 LAB L100.2200 19-41 % Low LY% 16.8 LAB L100.2300 0-10 % Normal MONO% 6.9 LAB L100.2400 0-5 % Normal EO% 2.5 LAB L100.2500 0-1 % Normal BASO% 0.3 LAB L100.2550 0.0-0.9 % Normal IM GRAN % 0.200 Result Comment: IG% - Immature Granulocytes (promyelocytes, myelocytes and metamyelocytes) > 1% indicates that a LEFT SHIFT is Present. LAB L100.2620 2.0-7.7 X10 3/uL Normal Absolute Neut 6.5 LAB L100.2720 0.83-4.51 X10 3/ul Normal Absolute Lymph 1.50 Performed By: #### L100.0100 #### [facility] [address] [place], [address] BASIC METABOLIC Collected: 11/01/2017 Status: F Source: [place] PROFILE (BMP) 3:43 PM [facility] REPOSITORY TYPE CODE TESTS RESULT OUT OF RANGE REFERENCE UNITS LAB L501.0100 74-106 mg/dL Normal GLU 103 Result Comment: Fasting Glucose result from 100 to 125 mg/dL suggests IMPAIRED HOMEOSTASIS per A.D.A. criteria. Please note revised GLUCOSE reference range effective 2017. LAB L501.1000 7-18 mg/dL Normal BUN 16 LAB L501.1100 0.70-1.30 mg/dL Normal CREAT,SERUM 1.07 Result Comment: The validity of the calculated GFR AND GFRAA in patients over 70 years has not been determined. Clinical correlation is essential. LAB L501.1110 >60 mL/min Normal EST GFR 73 Result Comment: Non- GFR Calc LAB L501.1115 >60 mL/min Normal EST GFR - AA 89 Result Comment: GFR Calc LAB L501.1255 ml/min Normal Estimated CRCL 65.70 LAB L501.1300 10-20 RATIO Normal BUN/CRE 15.0 LAB L501.2200 8.5-10 mg/dL Normal .1 CA 9.5 LAB L501.5300 136-14 mmol/L Normal 5 NA 138 LAB L501.5600 3.5-5. mmol/L Normal 1 K 3.9 LAB L501.5900 98-107 mmol/L Normal CL 104 LAB L501.6100 21.0-3 mmol/L Normal 2.0 CO2 28.0 LAB L501.6200 5-15 Normal GAP 6 Performed By: #### L500.2500 #### [facility] [address] [place], [place], [address] LACTIC ACID Collected: 11/01/2017 Status: F Source: [place] 3:43 PM [facility] REPOSITORY Order Comment: Yes/No query for Sepsis Lactate Rule Y TYPE CODE TESTS RESULT OUT OF RANGE REFERENCE UNITS LAB L503.6005 0.4-2.0 mmol/L Normal LACTIC ACID 1.4 Performed By: #### L503.6005 #### [facility] [address] [place], [address] PROGRESS Observed: 10/30/2017 Status: COMPLETED Source: [place] 8:40 AM [facility] REPOSITORY HNO ID: [id number] Author: Eligio (Rn) MITCHELL Banks Service: (none) Author Type: Registered Nurse Type: Progress Notes Filed: 11/23/2017 8:55 AM Note Text: MRI ASSISTANT EMERGENCY DEPARTMENT FOLLOW UP INITIAL CONTACT Provider Action/FYI: Unable to reach SUMMARY: -Patient discharged from [facility] ED on 10/27/17. -Follow up appointment: NEEDS. -Medication review NEEDS. -Presented with: Ostomy Care Chest Pain Weakness CONCERNS: N/A NEW MEDICATIONS: None MEDS HELD/DISCONTINUED: None BRIEF ED COURSE: The patient was evaluated as above. 67 year old male presents for Chest pain, chest tightness and colostomy prolapse. The patient has a history of repeated, recurrent colostomy prolapses. On exam the prolapsed bowel does not appear to be ischemic or strangulated. Colorectal was consults it who evaluated the patient. Agree the stoma is not likely ischemic or strangulated, and request KUB after the patient's chest pain shortness of breath workups are completed. The patient's chest pain is atypical and that he had a recent negative stress test in July. Given his history of an PA with CABG, cardiac enzymes, BNP, CBC were ordered and are pending. He also has a history of CHF, BNP was ordered and pending. Chest x-ray is not consistent with acute pulmonary edema or focal consolidation. Chest x-ray did demonstrate a known diaphragmatic hernia which is slightly enlarged today. The etiology of his shortness of breath and chest pain is currently unclear, further workup is required. Further lab work my KUB and reevaluate are pending at the time of sign out. ? ? ED Course / Clinical Impression ? ED Course as of Oct 27 1714 Jerry (Res) Ana's Documentation Sat Oct 27, [id number] likely left known diaphragmatic hernia,possibly enlarged from previous. No acute consolidation, effusion or nicola pulmonary edema. XR CHEST 1V FRONTAL PORT 1657 Colorectal to see the patient ? ? Clinical Impressions as of Oct 27 1714 Chest pain, unspecified type SOB (shortness of breath) Prolapsed, intestine ? ? Plan ? Patient care has been transferred to Dr. Padilla as of 5:18 PM . We discussed the patient's course, condition, and plan with all questions answered. ? SUMMARY: 67 male history COPD, CAD status post PA with CABG in 2005, divergent colostomy. Here for chest tightness, shortness of breath, colostomy prolapse, generalized weakness. Recent stress test negative in July. Labs and cardiac enzymes pending. Chest x-ray negative for consolidation or edema. DuoNeb ordered, however no wheezing on exam. Colostomy appears prolapsed without strangulation or ischemia. Colorectal surgery consulted and saw the patient. Colorectal surgery requests KUB after chest symptoms worked up. Patient can likely be discharged from a colorectal standpoint. ? TO DO: - Follow-up labs and cardiac enzymes - KUB after patient workup completed - call colorectal surgery for further plan regarding prolapsed colostomy - Reevaluation - further disposition planning pending further workup and reevaluation ? Thank you, ? Jerry Perez MD Emergency Medicine PGY-1 Jerry (Res) MD Ana Resident 10/27/17 0112 ? Attending Note I evaluated the patient and personally participated in the nelson components. I agree with the resident's findings and plan with the following revisions and/or additions: 67 yo male presents to ED c/o bowel prolpase into stoma beginning around 12 noon today. Also c/o chest pain and weakness. On exam, awake/alert/NAD. Abdomen: Soft, minimally tender around stoma. Bowel prolapsed into ostomy bag. No evidence of ischemia. CORS consulted and evaluated patient, and no acture surgical interventions. Cardiac markers negative. Patient with recent negative stress test. Discharged in stable condition. ? Signature: Woo Valdovinos MD Date: 10/28/2017 Time: 1:52 PM [facility]io Banks [facility] Observed: 10/30/2017 Status: COMPLETED Source: [place] 12:00 AM [facility] REPOSITORY Patient Outreach (INTMMN) MAXX KNOTT ([id number]) 1950 M Date Time Provider Department 10/30/17 ELIGIO BANKS (RN) INTMMN During your visit today, we recorded the following information about you: Eligio Banks RN, RN 11/23/2017 8:55 AM Signed MRI ASSISTANT EMERGENCY DEPARTMENT FOLLOW UP INITIAL CONTACT Provider Action/FYI: Unable to reach SUMMARY: -Patient discharged from [facility] ED on 10/27/17. -Follow up appointment: NEEDS. -Medication review NEEDS. -Presented with: Ostomy Care Chest Pain Weakness CONCERNS: N/A NEW MEDICATIONS: None MEDS HELD/DISCONTINUED: None BRIEF ED COURSE: The patient was evaluated as above. 67 year old male presents for Chest pain, chest tightness and colostomy prolapse. The patient has a history of repeated, recurrent colostomy prolapses. On exam the prolapsed bowel does not appear to be ischemic or strangulated. Colorectal was consults it who evaluated the patient. Agree the stoma is not likely ischemic or strangulated, and request KUB after the patient's chest pain shortness of breath workups are completed. The patient's chest pain is atypical and that he had a recent negative stress test in July. Given his history of an PA with CABG, cardiac enzymes, BNP, CBC were ordered and are pending. He also has a history of CHF, BNP was ordered and pending. Chest x-ray is not consistent with acute pulmonary edema or focal consolidation. Chest x-ray did demonstrate a known diaphragmatic hernia which is slightly enlarged today. The etiology of his shortness of breath and chest pain is currently unclear, further workup is required. Further lab work my KUB and reevaluate are pending at the time of sign out. ? ? ED Course / Clinical Impression ? ED Course as of Oct 27 1714 Jerry (Twin) Ana's Documentation Sat Oct 27, [id number] likely left known diaphragmatic hernia,possibly enlarged from previous. No acute consolidation, effusion or nicola pulmonary edema. XR CHEST 1V FRONTAL PORT 1657 Colorectal to see the patient ? ? Clinical Impressions as of Oct 27 1714 Chest pain, unspecified type SOB (shortness of breath) Prolapsed, intestine ? ? Plan ? Patient care has been transferred to Dr. Padilla as of 5:18 PM . We discussed the patient's course, condition, and plan with all questions answered. ? SUMMARY: 67 male history COPD, CAD status post PA with CABG in 2005, divergent colostomy. Here for chest tightness, shortness of breath, colostomy prolapse, generalized weakness. Recent stress test negative in July. Labs and cardiac enzymes pending. Chest x-ray negative for consolidation or edema. DuoNeb ordered, however no wheezing on exam. Colostomy appears prolapsed without strangulation or ischemia. Colorectal surgery consulted and saw the patient. Colorectal surgery requests KUB after chest symptoms worked up. Patient can likely be discharged from a colorectal standpoint. ? TO DO: - Follow-up labs and cardiac enzymes - KUB after patient workup completed - call colorectal surgery for further plan regarding prolapsed colostomy - Reevaluation - further disposition planning pending further workup and reevaluation ? Thank you, ? Jerry Perez MD Emergency Medicine PGY-1 Jerry (Res) MD Ana Resident 10/27/17 6661 ? Attending Note I evaluated the patient and personally participated in the nelson components. I agree with the resident's findings and plan with the following revisions and/or additions: 67 yo male presents to ED c/o bowel prolpase into stoma beginning around 12 noon today. Also c/o chest pain and weakness. On exam, awake/alert/NAD. Abdomen: Soft, minimally tender around stoma. Bowel prolapsed into ostomy bag. No evidence of ischemia. CORS consulted and evaluated patient, and no acture surgical interventions. Cardiac markers negative. Patient with recent negative stress test. Discharged in stable condition. ? Signature: Woo Valdovinos MD Date: 10/28/2017 Time: 1:52 PM Eligio Banks RN Allergies As of Date: 10/30/2017 Noted Allergy Reaction ALTASEPTIC 12/17/2016 16 - Unknown BRILINTA (TICAGRELOR) 08/09/2017 16 - Unknown CRESTOR (ROSUVASTATIN CALCIUM) 12/17/2016 17 - Myalgia HCTZ (AMILORIDE-HYDROCHLOROTHIAZI*12/17/2016 7 - Swelling MOXIFLOXACIN 7 - Swelling OTHER OMEGA-3S 07/06/2017 16 - Unknown Comments: brelinta RAMIPRIL 12/17/2016 7 - Swelling Comments: Other reaction(s): Facial swelling SIMVASTATIN 12/17/2016 17 - Myalgia Comments: Other reaction(s): Facial swelling VOLTAREN (DICLOFENAC SODIUM) 12/17/2016 16 - Unknown Date Reviewed: 10/27/2017 Reviewed by: Keena KingRn) MITCHELL Ham - Fully Assessed Reason for Visit: Field Specialist Ed Follow Up [7193] Prescriptions as of 10/30/2017 Sig: TAMSULOSIN 0.4 MG CAPSULE Take 0.4 mg by mouth once roddy* ONDANSETRON HCL 4 MG TABLET Take 4 mg by mouth every 6 ho* OXYCODONE-ACETAMINOPHEN 10 MG* Take 1 tablet by mouth every * B COMPLEX ORAL Take 1 tablet by mouth once d* ASPIRIN 81 MG TABLET,DELAYED * Take 81 mg by mouth once dominik* CYCLOBENZAPRINE 10 MG TABLET Take 1 tablet by mouth at bed* AMLODIPINE 10 MG TABLET Take 10 mg by mouth once dominik* LORATADINE 10 MG CAPSULE Take 1 capsule every day by o* PRAVASTATIN 40 MG TABLET Take 40 mg by mouth daily at * GABAPENTIN 300 MG CAPSULE Take 2 capsules by mouth dominik* METOPROLOL SUCCINATE ER 100 M* Take 1 tablet by mouth once d* QUETIAPINE 200 MG TABLET Take 2 tablets by mouth daily* COMPOUNDED PRESCRIPTION One Piece Ostomy Pouch Item T* COMPOUNDED PRESCRIPTION Paste: Convatec Stomahesive * MULTIVITAMIN AND MINERALS ORAL Take 1 capsule by mouth once * ALBUTEROL SULFATE HFA 90 MCG/* Inhale 2 Puffs as instructed * FLUTICASONE 50 MCG/ACTUATION * Use 1 [place] in the nose once * NITROGLYCERIN 0.4 [address]U* PLACE ONE(1) TABLET UNDER TON* LOSARTAN 100 MG TABLET Take 100 mg by mouth once roddy* FUROSEMIDE 20 MG TABLET Take 40 mg by mouth once dominik* Problem List As Of Date 10/30/2017 Noted Resolved 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 Chest pain [R07.9] INVALID FOR* Priority: A More... Hypertensive crisis [I16.9] INVALID FOR* Priority: B More... Healthcare maintenance [Z00.00] INVALID FOR* Priority: M More... Malnutrition of mild degree (HCC) [E44.1] INVALID FOR* Priority: L More... CHF (congestive heart failure) (HCC) [I50.9] INVALID FOR* Diverticulitis of sigmoid colon [K57.32] INVALID FOR* Class: Recurrent More... Chronic systolic congestive heart failure (HCC)*INVALID FOR* Priority: J More... CAD (coronary artery disease) [I25.10] INVALID FOR* Priority: K More... Hypertensive heart disease with congestive hear*INVALID FOR* Priority: K Hypocalcemia [E83.51] INVALID FOR*06/19/2017 Hypernatremia [E87.0] INVALID FOR*06/19/2017 Hypokalemia [E87.6] INVALID FOR*06/19/2017 Parastomal hernia without obstruction or gangre*INVALID FOR* Abdominal aortic aneurysm without rupture (HCC)*INVALID FOR* Renal cysts, acquired, bilateral [N28.1] INVALID FOR* Arthritis [M19.90] INVALID FOR* Anxiety disorder [F41.9] INVALID FOR* Essential hypertension [I10] INVALID FOR* Nicotine use disorder, F17.2 [F17.200] INVALID FOR* Melena [K92.1] INVALID FOR* Fall [W19.XXXA] INVALID FOR* Abdominal pain [R10.9] INVALID FOR* Peristomal hernia [K46.9] INVALID FOR* Encounter Status:Closed by ELIGIO BANKS on 11/23/17 EMERGENCY DEPARTMENT Observed: 10/27/2017 Status: F Source: [place] SUMMARY 11:35 PM [facility] RE[facility]ITORY [facility] Medical Records Department [address] [place] [address] Emergency Department Summary 10/20/17 1037 MR#: [id number] Acct: [id number] Name: NIKOSMAXX Shekhar Rep #: [id number] : 1950 67 From: Chele Smith MD PCP: [facility], [place] Status: DEP ER - ER Visit Summary Date of Service: 10/20/17 Chief Complaint: Abdominal pain History of Present Illness: The patient is a 67 M 3 of partial colectomy with colostomy due to diverticulitis. He also has a history of prior MIs with cardiac stents and a pacemaker. Patient has a known hernia of his colostomy. At times it bulges out causing him pain. This is 1 of those episodes. He has been seen here multiple times before for similar events. He has not nausea but denies any vomiting. Physical Examination: Older male no acute distress vital signs are stable afebrile. H EENT exam is unremarkable. Neck nontender. Lungs clear to auscultation heart regular rate and rhythm no murmur. Abdomen soft he has a hernia at the colostomy site on the right lower quadrant. There is stool and gas in his colostomy bag. There is no blood. He does have bowel sounds. He does not have peritoneal signs. He is moving all 4 extremities. They are neurovascularly intact. Neurologically is awake and alert without focal motor deficits. Test Results: KUB shows nonspecific bowel gas pattern. No signs of obstruction. Read both by myself the radiologist. Emergency Department Course and Treatment: Treated with pain and nausea medications lying supine and usually this hernia will reduce spontaneously. He will be reassessed. Treatment Plan: Patient is doing well on repeat exam at 1345. Abdomen is benign. Hernia is spontaneously reduced. He has stool and gas in his colostomy bag in his abdomen otherwise nontender nondistended. Disposition: Discharge Impression: Acute abdominal pain secondary to hernia at colostomy site This note was generated with [employer] dictation software. It may contain incorrect words, spelling, and punctuation that were not noted in review of the chart prior to signing ED Disposition - Plan for ED Patient: Chief Complaint: Abd Pain Referrals: [facility] [Primary Care Provider] - What to do if you have Problems For any increased pain, shortness of breath, bleeding, nausea or vomiting, chest pain, or any unexpected problems, contact your Primary Care Provider. Call [facility] ([phone]) or report to the closest Emergency Room. Call 911 if necessary. 10/27/17 2904 <Electronically signed by Chele Smith MD> Date Chele Smith MD Cosigner Signature (If Indicated): Date CC: [place] [facility] DISCHARGE INSTRUCTION Observed: 10/27/2017 Status: F Source: [place] 11:35 PM [facility] RE[facility] Medical Records Department [address] [address] Discharge Instruction 10/20/17 1357 MR#: [id number] Acct: [id number] Name: MAXX KNOTT Rep #: [id number] : 1950 67 From: Chele Smith MD [facility] [place] Status: DEP ER ED Disposition - Plan for ED Patient: Disposition: Home or Assisted Living Chief Complaint: Abd Pain Referrals: [facility] [Primary Care Provider] - 1-2 Days if not improving Additional Instructions: [facility] Return to the ER if increasing pain, vomiting or distended abdomen. At this time he had no signs of bowel obstruction. If the hernia recurs which is very well could lay flat and place ice over the area. It should spontaneously resolve. What to do if you have Problems For any increased pain, shortness of breath, bleeding, nausea or vomiting, chest pain, or any unexpected problems, contact your Primary Care Provider. Call [facility] ([phone]) or report to the closest Emergency Room. Call 911 if necessary. 10/27/17 1083 <Electronically signed by Chele Smith MD> Date Chele Smith MD Cosigner Signature (If Indicated): Date CC: [facility] ED NOTE Observed: 10/27/2017 Status: COMPLETED Source: [place] 9:44 PM [facility] RE[facility] HNO ID: [id number] Author: Helena Toth) MITCHELL Donis Service: Emergency Medicine Author Type: Registered Nurse Type: ED Notes Filed: 10/27/2017 9:45 PM Note Text: Pt returned, AANDOx3, NAD, no pain. Pt IV removed, given DC instructions and all questions answered ED NOTE Observed: 10/27/2017 Status: COMPLETED Source: [place] 9:15 PM [facility] REPOSITORY HNO ID: [id number] Author: Helena KingRn) MITCHELL Donis Service: Emergency Medicine Author Type: Registered Nurse Type: ED Notes Filed: 10/27/2017 9:44 PM Note Text: Pt left with IV in arm, pt called and asked to come back to have it removed ED NOTE Observed: 10/27/2017 Status: COMPLETED Source: [place] 7:55 PM [facility] REPOSITORY HNO ID: [id number] Author: Helena KingRn) MITCHELL Donis Service: Emergency Medicine Author Type: Registered Nurse Type: ED Notes Filed: 10/27/2017 7:55 PM Note Text: Pt asking for food, no [place], informed pt waiting on xray results PROGRESS Observed: 10/27/2017 Status: COMPLETED Source: [place] 7:35 PM [facility] REPOSITORY HNO ID: [id number] Author: Laurel Ko (Rt) Service: Radiology Author Type: Scraper Meat Type: Progress Notes Filed: 10/27/2017 7:36 PM Note Text: Radiology Service Progress Note PATIENT NAME: Maxx Knott DATE OF SERVICE: October 27, 2017 TIME: 7:35 PM PATIENT IDENTITY VERIFICATION COMPLETED USING TWO (2) METHODS: Patient confirmed name verbally and ID band matches.. PATIENT GENDER DATA: Male PATIENT RELEVANT IMPLANT DATA REVIEWED: Not Applicable RADIOLOGY DEPARTMENT: General X-ray: Exam(s) Completed: Abdomen X-Ray Abdomen PERIPHERAL IV DATA: Not applicable SIGNED BY: RT Stefani October 27, 2017 7:35 PM XR ABDOMEN 3V KUB Observed: 10/27/2017 Status: F Source: [place] W/[place]BLI[place] 7:23 PM [facility] REPOSITORY * * *Final Report* * * DATE OF EXAM: Oct 27 2017 7:23PM EGX [id number] - XR ABDOMEN 3V KUB W/OBLIQUES / PROCEDURE REASON: Abd pain, acute, no prior med hx * * * * Physician Interpretation * * * * PORTABLE XR ABDOMEN 3V KUB W/OBLIQUES HISTORY: Abd pain, acute, no prior med hx TECHNIQUE: Supine abdomen (1 view), 2 image(s) COMPARISON: KUB 04/01/2017 chest x-ray 10/27/2017, CT abdomen and pelvis 09/19/2017 RESULT: Lung bases are clear. The patient is status post median sternotomy for CABG. Pacer leads terminating within the right atrium and right ventricle. Contour abnormality of the left hemidiaphragm due to herniation of stomach/mesenteric fat through a defect in the left hemidiaphragm seen on previous CT. A stoma is present in the right lower quadrant. Scattered gas in normal caliber small bowel and colon. No abnormal calcifications. Facet arthropathy throughout the lower lumbar spine. IMPRESSION: No radiographic evidence of an acute abdominal process. Prep Room Supervisor: PSCB Transcribe Date/Time: Oct 27 2017 7:50P Dictated by : JOVANI SONI MD This examination was interpreted and the report reviewed and electronically signed by: RICH EWING MD on Oct 27 2017 8:21PM EST [id number] ED NOTE Observed: 10/27/2017 Status: COMPLETED Source: [place] 7:20 PM [facility] RE[facility] HNO ID: [id number] Author: Kimberli KingRn) MITCHELL Mendoza Service: Emergency Medicine Author Type: Registered Nurse Type: ED Notes Filed: 10/27/2017 7:20 PM Note Text: Report to MITCHELL Malik. ED NOTE Observed: 10/27/2017 Status: COMPLETED Source: [place] 7:15 PM [facility] [place] REPOSITORY HNO ID: [id number] Author: Helena Toth) MITCHELL Donis Service: Emergency Medicine Author Type: Registered Nurse Type: ED Notes Filed: 10/27/2017 7:21 PM Note Text: Xray at bedside CONSULT Observed: 10/27/2017 Status: COMPLETED Source: [place] 7:11 PM [facility] [place] REPOSITORY HNO ID: [id number] Author: Lemuel Ewing (Res) Chinmay Service: Colorectal Author Type: Resident Type: Consults Filed: 10/27/2017 7:23 PM Note Text: Colorectal Surgery Consult Note SERVICE DATE: October 27, 2017 SERVICE TIME: 7:11 PM PRIMARY CARE PHYSICIAN: Maxx Knott Colorectal Surgeon call center receptionist: Dr Weston Subjective Reason for call per primary service: Prolapsed Stoma CHIEF COMPLAINT: Abdominal Pain HPI: This is a 67 year old old who presents with recurrent complaint of prolapsed stoma, he is also complaining of chest pain which brought him to the emergency room. He has been seen for his stoma on multiple occasions and is planned for outpatient follow up. His stoma is functional no severe abdominal pain or bloody output. No fever no chills no CP no SHCWARZ no SOB Family history: no history for IBD or Colorectal Cancer or polyposis Bowel habits: colostomy Social History: current smoker, occasional alcohol FUNCTIONAL STATUS: Independent PAST MEDICAL HISTORY Diagnosis Date - AAA (abdominal aortic aneurysm) without rupture ([facility]) 05/13/[address] a/p - CAD (coronary artery disease) 2005 CAD s/p CABG x3 (FWCX-IIM-piepnh, IFQ-LSP-hannrt, DSR-XQ4-fdimvvyu) (2006 at [place]) - COPD (chronic obstructive pulmonary disease) ([facility]) - Current every day smoker PT SMOKES A PIPE - Diverticulitis Perforated Diverticulitis - Diverticulitis of sigmoid colon 05/15/2017 Added automatically from request for surgery [id number] - Hx of CABG - Pacemaker 02/16/2017 s/p PPM () 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 - Peritonitis ([facility]) PAST SURGICAL HISTORY Procedure Laterality Date - APPENDECTOMY HX - COLOSTOMY 07/2016 Diverting Loop Colostomy of the Transverse Colon - HEART SURGERY HX triple bypass 10 yrs ago - PPM IMPLANT - STENT - CORONARY ALLERGIES Allergen Reactions - Altaseptic Unknown - Brilinta [Ticagrelo* Unknown - Crestor [Rosuvastat* Myalgia - Hctz [Amiloride-Hyd* Swelling - Moxifloxacin Swelling - Other [place]-3s Unknown brelinta - Ramipril Swelling Other reaction(s): Facial swelling - Simvastatin Myalgia Other reaction(s): Facial swelling - Voltaren [Diclofena* Unknown COMPLETE REVIEW OF SYSTEMS: GENERAL: No weight loss, malaise or fevers RESPIRATORY: Negative for cough, hemoptysis, wheezing, COPD, dyspnea or shortness of breath CARDIOVASCULAR: Negative for chest pain, leg swelling, hypertension, CHF or palpitations GI: No nausea, vomiting, or diarrhea MUSCULOSKELETAL: Negative for joint pain or swelling, back pain or muscle pain Objective PHYSICAL EXAM: BP 167/74 Pulse 72 Temp 37.1 ?C (98.7 ?F) (Oral) Resp 15 Ht 172.7 cm (5' 8) Wt 88.5 kg (195 lb) SpO2 96% BMI 29.65 kg/m? GENERAL: Alert, no distress, cooperative LUNGS: Lungs clear to auscultation, Good diaphragmatic excursion CARDIAC: Normal S1 and S2; no rubs, murmurs, or gallops ABDOMEN: Abdomen soft, non-tender, colostomy mildly prolapsed reduces spontaneously when layed jocy, no signs of ischemia and has gas and stool output in the bag NEURO: Gait normal. No intake or output data in the 24 hours ending 10/27/171910 DATA: Diagnostic tests reviewed for today's visit: Most recent labs Assessment/Plan Maxx Knott67 year old male with no current active abdominal complaints, colostomy looks the best I have seen and is reducible spontaneously. -- no urgent current intervention from a surgical stand point -- will discuss [place] staff process [place] [id number]/ [phone] October 27, 2017 7:11 PM (between 6.00 pm and 6.00 am, , please call the colorectal surgery process automation engineer pager for any questions [phone] ) ED NOTE Observed: 10/27/2017 Status: COMPLETED Source: [place] 5:08 PM [facility] [place] REPOSITORY HNO ID: [id number] Author: Mata Padilla Service: Emergency Medicine Author Type: Resident Type: ED Notes Filed: 10/27/2017 11:31 PM Note Text: ED Resident Continuation of Care Note October 27, 2017 Maxx Knott was endorsed to me by Dr. Perez. 67 year old male PMHx diverting loop colostomy, CAD (PA 2006, CABG), and COPD presenting for chest pain and SOB for several hours, as well as colostomy prolapse (chronic, seen for same 2 weeks ago, failed to follow-up). Given duoneb x1. Cardiac workup, BNP, troponins negative. CXR with diaphragmatic hernia (known). Had recent normal stress 2 months ago. KUB negative for acute process. Colorectal evaluated patient and felt that colostomy prolapse chronic and no need for intervention. Patient tolerating PO, VSS and pain well controlled. He eloped with IV, but returned and IV removed. Advised to follow-up with surgery and PCP. An opportunity to ask questions was provided and none were expressed at that time. Warning signs/precautions for return to the ED were discussed. Patient verbalized understanding and was agreeable to plan. Mata Padilla MD ED NOTE Observed: 10/27/2017 Status: COMPLETED Source: [place] 5:07 PM [facility] REPOSITORY HNO ID: [id number] Author: Kimberli (Rn) MITCHELL Mendoza Service: Emergency Medicine Author Type: Registered Nurse Type: ED Notes Filed: 10/27/2017 5:07 PM Note Text: Colorectal at bedside. ED NOTE Observed: 10/27/2017 Status: COMPLETED Source: [place] 4:57 PM [facility] REPOSITORY HNO ID: [id number] Author: Jerry (Medic) Dwight Vasquez Service: Emergency Medicine Author Type: Bed Setter and Scraper Meat Type: ED Notes Filed: 10/27/2017 4:57 PM Note Text: Labs were drawn and sent. CBC AND DIFFERENTIAL Collected: 10/27/2017 Status: F Source: [place] 4:55 PM [facility] REPOSITORY TYPE CODE TESTS RESULT OUT OF REFERENCE UNITS RANGE LAB WBC 3.70-11.00 k/uL WBC 7.98 LAB RBC 4.20-6.00 m/uL RBC 4.55 LAB HGB 13.0-17.0 g/dL Hemoglobin 13.6 LAB HCT 39.0-51.0 % Hematocrit 39.8 LAB MCV 80.0-100.0 fL MCV 87.5 LAB MCH 26.0-34.0 pG MCH 29.9 LAB MCHC 30.5-36.0 g/dL MCHC 34.2 LAB RDWCV 11.5-15.0 % RDW-CV 14.6 LAB PLTCT 150-400 k/uL Platelet Count 358 LAB MPV 9.0-12.7 fL MPV 9.7 LAB ANEUT % Neut% 67.9 LAB AANEUT 1.45-7.50 k/uL Abs Neut 5.40 LAB ALYMP % Lymph% 23.4 LAB AALYMP 1.00-4.00 k/uL Abs Lymph 1.87 LAB AMONO % [place]% 6.8 LAB AAMONO <0.87 k/uL Abs [place] 0.54 LAB AEOS % Eosin% 1.4 LAB AAEOS <0.46 k/uL Abs Eosin 0.11 LAB ABASO % Baso% 0.5 LAB AABASO <0.11 k/uL Abs Baso 0.04 LAB AUNRBC 0 /100 WBC NRBCs 0.0 LAB ABNRBC <0.01 k/uL Absolute nRBC <0.01 LAB DTYP DTYPE Auto Diff Performed By: #### CBCDIF, CMP, LIPA, CKCKMB, NTBNP, BRAYAN #### [facility] [address], [place] [address] COMP METABOLIC PANEL Collected: 10/27/2017 Status: F Source: [place] 4:55 PM [facility] REPOSITORY TYPE CODE TESTS RESULT OUT OF REFERENCE UNITS RANGE LAB TP 6.3-8.0 g/dL Protein, Total 7.0 LAB ALB 3.9-4.9 g/dL Albumin 4.2 LAB CA 8.5-10.2 mg/dL Calcium, Total 9.7 LAB TBIL 0.2-1.3 mg/dL Bilirubin, Total 0.2 LAB ALKP 36-108 U/L Alkaline Phosphatase 83 LAB AST 14-40 U/L AST 21 LAB GLU 74-99 mg/dL Glucose High 112 Result Comment: The [place] Diabetes Association (ADA) provides guidance for cutoff values for fasting glucose and random glucose. The ADA defines fasting as no caloric intake for at least 8 hours. Fas ting plasma glucose results between 100 to 125 mg/dL indicate increased risk for diabetes (prediabetes). Fasting plasma glucose results greater than or equal to 126 mg/dL meet the criteria for diagnosis of diabetes. In the absence of unequivocal hyperglycemia, results should be confirmed by repeat testing. In a patient with classic symptoms of hyperglycemia or hyperglycemic crisis, random plasma glucose results greater than or equal to 200 mg/dL meet the criteria for diagnosis of diabetes. Reference: Standards of Medical Care in Diabetes 2016, [place] Diabetes Association. Diabetes Care. 2016.39(Suppl 1). LAB BUN 9-24 mg/dL BUN 15 LAB CRET 0.73-1.22 mg/dL Creatinine 1.12 LAB NA 136-144 mmol/L Sodium 140 LAB K 3.7-5.1 mmol/L Potassium 3.8 LAB CL 97-105 mmol/L Chloride 100 LAB CO2 22-30 mmol/L CO2 27 LAB AGAP 9-18 mmol/L Anion Gap 13 LAB ALT 10-54 U/L ALT 23 LAB GFRAA eGFR- Amer. >60 LAB GFRNAA . eGFR-All Other Races >60 Result Comment: eGFR (Estimated GFR) Units of measure: mL/min/1.73 meters squared eGFR is derived from the reexpressed MDRD Study equation using the following parameters: serum creatinine, age, gender and race. The creatinine assay has been calibrated to be traceable to IDMS. An eGFR <60 mL/min/1.73m2 for >3 months is consistent with chronic kidney disease. Refer to KDOQI guidelines for clinical interpretation. In patients with unstable renal function, e.g. those with acute kidney injury, the eGFR may not accurately reflect actual GFR. Performed By: #### CBCDIF, CMP, LIPA, CKCKMB, NTBNP, BRAYAN #### [facility] [address], [place] [address] LIPASE Collected: 10/27/2017 Status: F Source: [place] 4:55 [facility] REPOSITORY TYPE CODE TESTS RESULT OUT OF REFERENCE UNITS RANGE LAB LIPA 16-61 U/L Low Lipase 13 Performed By: #### CBCDIF, CMP, LIPA, CKCKMB, NTBNP, BRAYAN #### [facility] [address] [place], [place] [address] CK, TOTAL AND CKMB Collected: 10/27/2017 Status: F Source: [place] 4:[address] [place] [address] REPOSITORY TYPE CODE TESTS RESULT OUT OF RANGE REFERENCE UNITS LAB CK 51-298 U/L Low CK 27 Result Comment: Please note the updated, gender-specific reference range for this test (effective 04/13/2016). LAB MB <7.7 ng/mL 1.0 MB LAB CKMBRI 0.0-4.0 % CK MB % not reported CK MB % with CK <100 U/L. Performed By: #### CBCDIF, CMP, LIPA, CKCKMB, NTBNP, BRAYAN #### [facility] [address] [place], [place] [address] NT PRO BNP Collected: 10/27/2017 Status: F Source: [place] 4:[address] [place] [address] REPOSITORY TYPE CODE TESTS RESULT OUT OF REFERENCE UNITS RANGE LAB PBNP <125 pg/mL High PRO B Natr 832 Peptide Performed By: #### CBCDIF, CMP, LIPA, CKCKMB, NTBNP, BRAYAN #### [facility] [address] [place], [place] [address] TROPONIN T Collected: 10/27/2017 Status: F Source: [place] 4:55 PM [facility] REPOSITORY TYPE CODE TESTS RESULT OUT OF REFERENCE UNITS RANGE LAB TROPT 0.000-0.029 ng/mL Troponin T <0.010 Performed By: #### CBCDIF, CMP, LIPA, CKCKMB, NTBNP, BRAYAN #### [facility] [address] [place], [place] [address] PROGRESS Observed: 10/27/2017 Status: COMPLETED Source: [place] 4:36 PM [facility] REPOSITORY HNO ID: [id number] Author: Laurel West (Rt) Service: Radiology Author Type: Scraper Meat Type: Progress Notes Filed: 10/27/2017 4:36 PM Note Text: Radiology Service Progress Note PATIENT NAME: Maxx Knott DATE OF SERVICE: October 27, 2017 TIME: 4:36 PM PATIENT IDENTITY VERIFICATION COMPLETED USING TWO (2) METHODS: Patient confirmed name verbally and ID band matches.. PATIENT GENDER DATA: Male PATIENT RELEVANT IMPLANT DATA REVIEWED: Not Applicable RADIOLOGY DEPARTMENT: General X-ray: Exam(s) Completed: Chest X-Ray PERIPHERAL IV DATA: Not applicable SIGNED BY: RT Brett October 27, 2017 4:36 PM XR CHEST 1V FRONTAL Observed: 10/27/2017 Status: F Source: [facility] 4:35 PM [facility] REPOSITORY * * *Final Report* * * DATE OF EXAM: Oct 27 2017 4:35PM [id number] - XR CHEST 1V FRONTAL PORT / PROCEDURE REASON: Shortness of breath * * * * Physician Interpretation * * * * EXAMINATION: CHEST RADIOGRAPH (PORTABLE SINGLE VIEW AP) Exam Date/Time: 10/27/2017 4:35 PM Clinical History: Shortness of breath MQ: [id number] Comparison: Outside chest x-ray 09/19/2017, outside CT 09/19/2017 RESULT: See impression. IMPRESSION: Lines, tubes, and devices: A pacing device is present in the left chest wall with leads terminating in the right atrium and right ventricle. Lungs and pleura: The left hemidiaphragm is elevated, increased from prior. An ovoid opacity that abuts the left hemidiaphragm corresponds to herniated stomach/mesenteric fat through a defect in the left hemidiaphragm, as seen on previous CT. No focal areas of consolidation. No pleural effusion. No pneumothorax. Cardiomediastinal silhouette: Patient is status post median sternotomy for CABG. Stable cardiomediastinal silhouette. There are atherosclerotic vascular calcifications in the aortic arch. Other: . Prep Room Supervisor: PSCB Transcribe Date/Time: Oct 27 2017 4:45P Dictated by : JOVANI SONI MD This examination was interpreted and the report reviewed and electronically signed by: RICH EWING MD on Oct 27 2017 7:50PM EST [id number] ED PROV NOTE Observed: 10/27/2017 Status: COMPLETED Source: [place] 4:30 PM [facility] REPOSITORY O ID: [id number] Author: Woo Valdovinos MD Service: Emergency Medicine Author Type: Physician Type: ED Provider Notes Filed: 10/28/2017 1:55 PM Note Text: ED Provider Note Patient Name: Maxx Knott SERVICE DATE: 10/27/17 History Patient presents with: Ostomy Care Chest Pain Weakness Maxx Knott is a 67 year old male with a hx of CAD status post PA with CABG in 2005, AAA, COPD, CHF diverticulitis presenting to the ED for multiple complaints 1 - chest pain with shortness of breath since this morning. He states he has had a runny nose since yesterday and developed chest pain and shortness of breath this morning. The chest pain is described as tightness, located over the upper sternum and radiating into the neck, associated with a burning sensation. The patient denies nausea or vomiting, diaphoresis or any exertional component. He denies back pain, leg swelling or leg pain or history of blood clots or cancer. Patient has COPD but does not feel this is a COPD exacerbation. He denies wheezing. He endorses intermittently productive cough with kaur sputum. Denies fever or chills. 2 - prolapsed stoma. Patient has diverting loop colostomy with known chronic, recurring prolapsing stoma. Patient states the stoma prolapsed several hours ago. Her significant pain and tenderness to palpation around the area. He reports stools from the stoma had been normal without blood. 3 - urinary hesitance times months. Unchanged today. Intermittent dysuria yesterday, resolved. 4 - generalized weakness. Patient states he feels weak all over since he developed the runny nose and cough yesterday. Denies focal weakness or numbness. States he is too weak to walk. History provided by: Patient interpreter deaf used: No PAST MEDICAL HISTORY Diagnosis Date - AAA (abdominal aortic aneurysm) without rupture ([facility]) 05/13/[address] a/p - CAD (coronary artery disease) 2005 CAD s/p CABG x3 (JEXW-GNQ-uptryi, JWE-NRM-xfotje, JRB-YG9-tcpblbbn) (2006 at [facility]) - COPD (chronic obstructive pulmonary disease) ([facility]) - Current every day smoker PT SMOKES A PIPE - Diverticulitis Perforated Diverticulitis - Diverticulitis of sigmoid colon 05/15/2017 Added automatically from request for surgery [id number] - Hx of CABG - Pacemaker 02/16/2017 s/p PPM () 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 - Peritonitis ([facility]) PAST SURGICAL HISTORY Procedure Laterality Date - APPENDECTOMY HX - COLOSTOMY 07/2016 Diverting Loop Colostomy of the Transverse Colon - HEART SURGERY HX triple bypass 10 yrs ago - PPM IMPLANT - STENT - CORONARY FAMILY HISTORY Problem Relation Age of Onset - Coronary Artery Disease Father - Hyperlipidemia Father Social History Social History Main Topics - Smoking status: Current Every Day Smoker Packs/day: 0.50 Years: 35.00 Types: Pipe, Cigarettes - Smokeless tobacco: Never Used Comment: Quit cigarettes 11-16-16 now smoking 4 pipes as of 04-18-17 - Alcohol use No - Drug use: No - Sexual activity: Not Currently ALLERGIES Allergen Reactions - Altaseptic Unknown - Brilinta [Ticagrelo* Unknown - Crestor [Rosuvastat* Myalgia - Hctz [Amiloride-Hyd* Swelling - Moxifloxacin Swelling - Other [place]-3s Unknown brelinta - Ramipril Swelling Other reaction(s): Facial swelling - Simvastatin Myalgia Other reaction(s): Facial swelling - Voltaren [Diclofena* Unknown Review of Systems Constitutional: Positive for fatigue. Negative for chills and fever. HENT: Positive for rhinorrhea. Negative for ear pain, hearing loss, sore throat, trouble swallowing and voice change. Eyes: Negative for pain and visual disturbance. Respiratory: Positive for cough, chest tightness and shortness of breath. Negative for wheezing. Cardiovascular: Negative for chest pain, palpitations and leg swelling. Gastrointestinal: Positive for abdominal pain (stoma pain). Negative for blood in stool, constipation, diarrhea, nausea and vomiting. Genitourinary: Positive for difficulty urinating. Negative for dysuria, frequency, hematuria and urgency. Musculoskeletal: Negative for arthralgias and myalgias. Skin: Negative for color change and rash. Neurological: Positive for weakness (Generalized). Negative for dizziness, facial asymmetry, light-headedness and numbness. Psychiatric/Behavioral: Negative for confusion. Physical Exam BP 107/43 Pulse 95 Temp (Src) 99.1 (Oral) Resp 18 Ht 5' 8 (1.73m) Wt 195 lb (88.5kg) SpO2 94% BMI 29.66 kg/(m2). Physical Exam Constitutional: He is oriented to person, place, and time. He appears well-developed and well-nourished. No distress. HENT: Head: Normocephalic and atraumatic. Eyes: Conjunctivae are normal. Pupils are equal, round, and reactive to light. Neck: Normal range of motion. Neck supple. No JVD present. Cardiovascular: Normal rate, regular rhythm and normal heart sounds. Pulmonary/Chest: Effort normal and breath sounds normal. No respiratory distress. He has no wheezes. He has no rhonchi. Distant breath sounds, difficult to auscultate Abdominal: Soft. Bowel sounds are normal. He exhibits no distension and no mass. There is tenderness in the right lower quadrant. There is no rigidity, no rebound and no guarding. Right lower quadrant stoma with approximately 6 cm of prolapsed bowel. The bowel appears pink and well perfused without obvious discoloration or bleeding. No obvious signs of strangulation. Musculoskeletal: Normal range of motion. He exhibits no tenderness. Neurological: He is alert and oriented to person, place, and time. No cranial nerve deficit or sensory deficit. Coordination normal. Exam significantly limited by patient effort. Strength 2 out of 5 in the left lower extremity and 3 out of 5 in the right lower extremity. Strength otherwise normal throughout. Patient visualized to be moving both lower extremities spontaneously. Decreased effort with strength testing Skin: Skin is warm and dry. No rash noted. Psychiatric: He has a normal mood and affect. His behavior is normal. Judgment and thought content normal. Nursing note and vitals reviewed. Diagnostic Testing ED Labs Ordered and Reviewed - No data to display Procedures : none Medical Decision Making Old Chart review, significant findings include - Seen on October 09, 2017 for similar stoma prolapse. Patient was seen by colorectal surgery at that time who felt further imaging or workup is not indicated. Patient was discharged home with outpatient colorectal surgery follow- up. The patient has not been seen by colorectal surgery since that time. Normal pharmacologic stress test with nuclear imaging on July 30, 2017. MDM The patient was evaluated as above. 67 year old male presents for Chest pain, chest tightness and colostomy prolapse. The patient has a history of repeated, recurrent colostomy prolapses. On exam the prolapsed bowel does not appear to be ischemic or strangulated. Colorectal was consults it who evaluated the patient. Agree the stoma is not likely ischemic or strangulated, and request KUB after the patient's chest pain shortness of breath workups are completed. The patient's chest pain is atypical and that he had a recent negative stress test in July. Given his history of an PA with CABG, cardiac enzymes, BNP, CBC were ordered and are pending. He also has a history of CHF, BNP was ordered and pending. Chest x-ray is not consistent with acute pulmonary edema or focal consolidation. Chest x-ray did demonstrate a known diaphragmatic hernia which is slightly enlarged today. The etiology of his shortness of breath and chest pain is currently unclear, further workup is required. Further lab work my KUB and reevaluate are pending at the time of sign out. ED Course / Clinical Impression ED Course as of Oct 27 1714 Jerry (Res) Ana's Documentation Sat Oct 27, [id number] likely left known diaphragmatic hernia,possibly enlarged from previous. No acute consolidation, effusion or nicola pulmonary edema. XR CHEST 1V FRONTAL PORT 1657 Colorectal to see the patient Clinical Impressions as of Oct 27 1714 Chest pain, unspecified type SOB (shortness of breath) Prolapsed, intestine Plan Patient care has been transferred to Dr. Padilla as of 5:18 PM . We discussed the patient's course, condition, and plan with all questions answered. SUMMARY: 67 male history COPD, CAD status post PA with CABG in 2005, divergent colostomy. Here for chest tightness, shortness of breath, colostomy prolapse, generalized weakness. Recent stress test negative in July. Labs and cardiac enzymes pending. Chest x-ray negative for consolidation or edema. DuoNeb ordered, however no wheezing on exam. Colostomy appears prolapsed without strangulation or ischemia. Colorectal surgery consulted and saw the patient. Colorectal surgery requests KUB after chest symptoms worked up. Patient can likely be discharged from a colorectal standpoint. TO DO: - Follow-up labs and cardiac enzymes - KUB after patient workup completed - call colorectal surgery for further plan regarding prolapsed colostomy - Reevaluation - further disposition planning pending further workup and reevaluation Thank you, Jerry Perez MD Emergency Medicine PGY-1 Jerry (Res) MD Ana Resident 10/27/17 6561 Attending Note I evaluated the patient and personally participated in the nelson components. I agree with the resident's findings and plan with the following revisions and/or additions: 67 yo male presents to ED c/o bowel prolpase into stoma beginning around 12 noon today. Also c/o chest pain and weakness. On exam, awake/alert/NAD. Abdomen: Soft, minimally tender around stoma. Bowel prolapsed into ostomy bag. No evidence of ischemia. CORS consulted and evaluated patient, and no acture surgical interventions. Cardiac markers negative. Patient with recent negative stress test. Discharged in stable condition. Signature: Woo Valdovinos MD Date: 10/28/2017 Time: 1:52 PM Woo Valdovinos MD 10/28/17 3115 ED NOTE Observed: 10/27/2017 Status: COMPLETED Source: [place] 4:13 PM [facility] REPOSITORY HNO ID: [id number] Author: Fani Reed (Cook Helper Vegetable) REILLY Prado Service: Emergency Medicine Author Type: Registered Resp Therapist Type: ED Notes Filed: 10/27/2017 4:15 PM Note Text: Breath sounds bilaterally clear but diminished. patient is able to speak full sentences. patient has history of COPD. patient uses inhaler and nebulizer as needed. Nasal congestion present. will continue to monitor patient and await for any further orders. HR 92. RR 20 ED NOTE Observed: 10/27/2017 Status: COMPLETED Source: [place] 4:00 PM [facility] REPOSITORY HNO ID: [id number] Author: Kimberli KingRn) MITCHELL Mendoza Service: Emergency Medicine Author Type: Registered Nurse Type: ED Notes Filed: 10/27/2017 4:13 PM Note Text: Assumed care of patient. Pt. comes to ED for CP, SOB, abdominal pain, nausea. Pt states ~1500, pt developed CP while making food. CP radiates into throat. c/o SOB- mild expiratory wheezes in lower lobes. States hx of COPD but does not use treatments at home. Endorses abd pain AND nausea. Colostomy prolapsed upon assessment- states this occurred at same time as chest pain. Placed on opal miner AND continuous sp02. ABC's intact, respirations even and unlabored. Skin acyanotic, warm and dry. Will notify MD of any acute changes. Side rails up x2, bed in lowest locked position, call light within reach, ID band on. 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 Denies any strenuous activity. ECG completed in intake. NAD, ABC's intact, AANDO, AMEZQUITA. EKG1 Observed: 10/27/2017 Status: F Source: [place] 3:35 PM [facility] REPOSITORY NAME : MAXX KNOTT PID : [id number] : 1950 Gender : Male Race : ORD : Procedure Date : Oct 27 2017 15:35:23 Edit Date : Nov 02 2017 04:59:34 Diagnosis:NORMAL SINUS RHYTHM POSSIBLE LEFT ATRIAL ENLARGEMENT POSSIBLE INFERIOR MYOCARDIAL INFARCTION , AGE UNDETERMINED LATERAL T WAVE ABNORMALITY ABNORMAL ECG NOTE: PLEASE SEE PHYSICIAN'S NOTE FROM E.D. VISIT Confirmed by BEATA ROCHA M.D. ([id number]), copy editor ONELIA MINA ([id number]) on 11/02/2017 4:59:27 AM Ventricular Rate : 93 BPM Atrial Rate : 93 BPM P-R Interval : 190 ms QRS Duration : 104 ms Q-T Interval : 358 ms QTC Calculation(Bezet) : 445 ms P [place] : 66 degrees R [place] : 49 degrees T [place] : 27 degrees Test Reason : Location : 2 : EDNS [id number] Overread By : BEATA ROCHA M.D. Edited By : ONELIA MINA Referred By : , Acquired by : ISATU, PROGRESS Observed: 10/24/2017 Status: COMPLETED Source: [place] 2:15 PM [facility] REPOSITORY HNO ID: [id number] Author: Eligio (Rn) MITCHELL Banks Service: (none) Author Type: Registered Nurse Type: Progress Notes Filed: 10/24/2017 2:16 PM Note Text: Unable to reach patient at this time, left VM to return call to the office. Eligio Banks RN ED DOC Observed: 10/22/2017 Status: UNK Source: [facility] 8:40 PM [facility] This is a preliminary report only, as the practitioner review and authentication has not occurred. ED DOC Observed: 10/22/2017 Status: UNK Source: [facility] 8:40 PM [facility] REPOSITORY PHYSICIAN ASSESSMENT RECORDS : FlexChartData Event Time: 10/22/2017 17:10 Status: Signed [facility] Maxx Knott [[id number]] Attending Physician 67 / M / 1950 Chart (V2b) Chart created at 10/22/2017 17:03 by Catarino Black Chart closed at 10/22/2017 20:28 Entry in Emergency Department at 10/22/2017 16:29, departure at 10/22/2017 20:40 Patient Name: Maxx Knott Record Number: [id number] Date: 10/22/2017 17:03 Entered Department at: 10/22/2017 16:29 Patient Seen at: 10/22/2017 16:51 Historian: Patient PCP: [facility] Chief Complaint:c/o intestine prolapse into colostomy bag x2-3 hrs ago. Triage Note reviewed and Initial Vital Signs reviewed. Temperature: 98.2 F (36.8 C). Pulse: 91. Respiratory Rate: 18. Blood-pressure: 185/82. Oxygen Saturation: 99%. History of Present Illness: Patient presents complaining of prolapse from his colostomy bag. He states he bumped his abdomen on account number about 2-3 hours ago and the intestine seem to come out. It started causing pain. He states is this has happened one time before. His colostomy was done approximately a year ago. He states he started to feel nauseous but no vomiting. Denies fever or [facility] PATIENT NAME: MAXX KNOTT [address] [place] MEDICAL REC #: [id number] [place] [address] EMERGENCY DEPARTMENT CHART EMERGENCY DEPARTMENT PHYSICIAN jason. He is on aspirin and Plavix. Denies fever chills cough shortness of breath. He has intermittent chest pains that is chronic for him. None currently. No urinary symptoms. Review of Systems. All other systems reviewed and negative.. Past History, Medications, Allergies, Social History and Family History reviewed in nurses note. Medications: Reviewed RN Note. Allergies: Reviewed RN Note Altace (Ramipril)(Get Sick), CRESTOR (Get Sick), Ramipril(Get Sick), Simvastatin(Nausea and Vomiting), ATORVASTATIN (Get Sick), MOXIFLOXACIN (Difficulty Breathing), VOLTAREN (Get Sick), HYDROCHLOROTHIAZIDE (Get Sick) Social History: Reviewed RN Note. Family History: Reviewed RN Note Physical Examination: General: Alert HEENT: Normal ENT inspection. Neck: Supple Respiratory: No Resp Distress and Normal Breath Sounds Cardio-Vascular: No murmur and RRR Abdomen: Soft; Colostomy in place and abdomen with nearly a softball size intestines protruding, pink in color, moist, no blood, stool in colostomy bag Extremity: No edema Neurological: Alert, Oriented X3 and No Gross Weakness Skin: Warm and Dry Psychological: Mood/Affect Normal Medical Decision Making Blood work was obtained was unremarkable. I did get a CT of the abdomen which showed the periostomy hernia without strangulation. I did take the ostomy bag off was able to reduce it. It does pop out somewhat with this but is easily reducible. I dont feel this needs emergent intervention otherwise. He states that he feels like its back to normal now. Its no longer tender. He continues to remain pink in color moist. A new colostomy bag is placed. Hes instructed to call his surgeon tomorrow and to return if [facility] PATIENT NAME: MAXX KNOTT [facility] [address] [facility] MEDICAL REC #: [id number] [place] [address] EMERGENCY DEPARTMENT CHART EMERGENCY DEPARTMENT PHYSICIAN it pops out again and he is unable to get it back in. He is agreeable with this plan. Patient discharged in stable condition. Clinical Impression: 1. Intestinal prolapse from colostomy - resolved Disposition: Discharged . Condition: Fair MSE completed. I was the primary ED attending.. : Discharge Report Event Time: 10/22/2017 20:28 ===DISCHARGE REPORT=== : FlexChartData Event Time: 10/22/2017 17:10 : Discharge Report Event Time: 10/22/2017 20:28 Status: Draft Reasons to Return to the ER: You must return to the ER for any new, worsening or changing symptoms, or if you feel more ill or sick in any way. This is the most important thing to remember. Follow-up: The care you received in the ER was given on an emergency basis only, and it is often not possible to completely treat or diagnose a problem in a single ER visit. You must see your follow-up doctor for a recheck within a week unless you receive instructions with a different timeframe for follow-up. Please follow all your discharge instructions. Medications: Unless the ER doctor tells you differently, you should take all your regular medications and any new [facility] PATIENT NAME: MAXX KNOTT Dr. [place] MEDICAL REC #: [id number] [place] [address] EMERGENCY DEPARTMENT CHART EMERGENCY DEPARTMENT PHYSICIAN medications prescribed today. Because it is not possible for the ER doctor to review all of your medication side effects or interactions, you must review possible side effects and interactions with your pharmacist when you get your prescriptions filled. EKG and Radiology Results: A straightening machine operator or radiologist will review any EKG or radiology results provided by the ER doctor. We will contact you if the results in the final EKG or radiology reports require a change in treatment. Culture Results: Cultures may have been ordered during your ER visit. We will contact you if the culture results require a change in treatment. Referrals: Most referrals to specialists come from the on-call list You should make your regular doctor aware of any referrals before you schedule the appointment so that they are aware and can make suggestions DIAGNOSIS: Intestinal prolapse from colostomy - resolved INSTRUCTIONS: Please return with new or worsening symptoms. Please follow-up with your surgeon in [place] tomorrow. REFERRAL Your regular doctor(s) Please call the above number to schedule a follow-up appointment. MEDICATIONS We have given you these prescriptions that you must fill and start taking: [facility] PATIENT NAME: MAXX KNOTT Dr[facility] MEDICAL REC #: [id number] [place] [address] EMERGENCY DEPARTMENT CHART EMERGENCY DEPARTMENT PHYSICIAN None COMMENTS: Patient Satisfaction: Within the first few days after your visit, you will receive an email and/or phone call regarding your visit. We value your feedback, and would appreciate it if you would take the time to complete this short survey. If you receive a call, it will be between 6p and 8p. My signature below indicates that I have received and understand the oral instructions regarding my medical problem. I also acknowledge receipt of this written instruction sheet including a list of major tests and procedures ordered during my visit. I will arrange for follow-up care as indicated by these instructions and referrals. This signed original will be kept in my medical record. Your signature below indicates consent for Case Management to [facility] in an effort to meet your ongoing healthcare needs. This will allow forcontinuity of care once you leave the Emergency Department. This exchange of informationwill include, but not be limited to, disclosure of your patient information and possible release of records. [employer] Patient: MAXX KNOTT Sex: M : 1950 Age: 67 yr Account No: [id number] Registration Date: 16:10/22/2017 Address: [address] [place] [address] [address] Address: [place] [address] REGISTRATION [facility] PATIENT NAME: MAXX KNOTT [address] [place] MEDICAL REC #: [id number] [place] [address] EMERGENCY DEPARTMENT CHART EMERGENCY DEPARTMENT PHYSICIAN ED Number: [id number] Marital Status: D Financial Class: FEDP TRIAGE Priority: 3 - Urgent Complaint: Abdominal Pain Stated Complaint: c/o intestine prolapse into colostomy bag x2-3 hrs ago. Arrival Date: 10/22/2017 16:29 Triage Date: 10/22/2017 16:31 Mode of Arrival: *Privately Owned Vehicle Transfer From: * Home WC: N Language: [place] Citizen Transport: Ambulatory/Walk In BED D49 In: 10/22/2017 16:36:57 10/22/2017 16:36:57 BSF D49 (Removed From) Out: 10/22/2017 20:40:22 10/22/2017 20:40:22 BSF PROVIDERS MD Catarino Black Provider Contact: 10/22/2017 16:51:00 [id number] End: MITCHELL JACKSON Provider Contact: 10/22/2017 17:35:16 BSF End: TRIAGE HISTORY ALLERGIES [facility] PATIENT NAME: MARILUZ KNOTTYanelis Corrigan [address] [place] MEDICAL REC #: [id number] [place] [address] EMERGENCY DEPARTMENT CHART EMERGENCY DEPARTMENT PHYSICIAN Allergic To: CRESTOR - Get Sick 10/22/2017 16:33 LDP Allergic To: Ramipril - Get Sick 10/22/2017 16:33 LDP Allergic To: Simvastatin - Nausea and Vomiting 10/22/2017 16:33 LDP Allergic To: ATORVASTATIN - Get Sick 10/22/2017 16:33 LDP Allergic To: MOXIFLOXACIN - Difficulty Breathing 10/22/2017 16:33 LDP Allergic To: VOLTAREN - Get Sick 10/22/2017 16:33 LDP Allergic To: HYDROCHLOROTHIAZIDE - Get Sick 10/22/2017 16:33 LDP CURRENT MEDS Name: AMLODIPINE BESYLATE 10MG TABLET - PO 10/22/2017 18:43 BSF Name: losartan 100 mg po 10/22/2017 18:43 BSF Name: prevastatin 40 mg po 10/22/2017 18:43 BSF Name: vitamin b complex 10/22/2017 18:43 BSF Name: multivitamin 10/22/2017 18:43 BSF Name: FLEXERIL 10MG TABLET - PO 10/22/2017 18:43 BSF Name: SEROQUEL 400MG TABLET - PO 10/22/2017 18:43 BSF Name: GABAPENTIN 300MG CAPSULE - PO 10/22/2017 18:43 BSF Name: METOPROLOL TARTRATE 100MG TABLET - PO 10/22/2017 18:43 BSF Name: LASIX 40MG TABLET - PO 10/22/2017 18:43 BSF Name: ALBUTEROL SULFATE 0.5% SOLUTION FOR INHALATION - INH 10/22/2017 18:43 BSF Name: OXYCODONE HYDROCHLORIDE/ACETAMINOPHEN 10MG-325MG TABLET - PO 10/22/2017 18:43 BSF [facility] PATIENT NAME: MAXX KNOTT [address] [place] MEDICAL REC #: [id number] [place] [address] EMERGENCY DEPARTMENT CHART EMERGENCY DEPARTMENT PHYSICIAN Name: NITROGLYCERIN 0.4MG SUBLINGUAL TABLET - SLG 10/22/2017 18:43 BSF Name: LORATADINE 10MG TABLET - PO 10/22/2017 18:43 BSF Name: verified with pt 10/22/17 10/22/2017 18:43 BSF ILLNESS Illness: CHF 10/22/2017 16:33 LDP Illness: COPD 10/22/2017 16:33 LDP Illness: Angina/CAD 10/22/2017 16:33 LDP Illness: Hypertension 10/22/2017 16:33 LDP Illness: Sleep Apnea 10/22/2017 16:33 LDP Illness: High Cholestrol 10/22/2017 16:33 LDP Illness: Diverticulitis 10/22/2017 16:33 LDP PAST SURGERY HIST Surgery: Cardiac Bypass 10/22/2017 16:33 LDP Surgery: Appendectomy 10/22/2017 16:33 LDP Surgery: COLOSTOMY 10/22/2017 16:33 LDP Surgery: triple heart bypass 10/22/2017 16:33 LDP PAST SOCIAL HIST Social History: Communicates without difficulty 10/22/2017 16:33 LDP Social History: Lives with family or significant other 10/22/2017 16:33 LDP Social History: Alcohol - None 10/22/2017 16:33 LDP Social History: Recreational Drugs - None 10/22/2017 16:33 LDP Social History: Smoker-1/2-3/4 PPD 10/22/2017 16:33 LDP [facility] PATIENT NAME: MAXX KNOTT [facility] [facility] MEDICAL REC #: [id number] [place] [address] EMERGENCY DEPARTMENT CHART EMERGENCY DEPARTMENT PHYSICIAN Social History: Denies Domestic Violence 10/22/2017 16:33 LDP Social History: Denies thoughts of self harm. 10/22/2017 16:33 LDP Social History: Have you traveled in the past month? Where no 10/22/2017 16:33 LDP NURSING ASSESSMENT ASSESSMENT NOTES 10/22/2017 16:[address] hendrix of patient 10/22/2017 16:40 LDP 10/22/2017 17:48 attempted an iv no success. pt states that he usually has the ultra sound machine to do it. 10/22/2017 17:51 BSF 10/22/2017 17:49 pt Aandamp;OX 3 pt skin warm, dry and pink pt states that he hit his colostomy off of his counter top and now has colon protruding out of his stoma. pt states that he has had some nausea and vomiting. colostomy bag is still intact. no diarrhea. pt states that the stool is normal. 10/22/2017 17:51 BSF 10/22/2017 20:06 colostomy bag placed on pt. pt tolerated well 10/22/2017 20:07 BSF TREATMENT 10/22/2017 19:14 Hourly Rounding - Rounding 10/22/2017 19:15 BSF Elimination/Toileting N Pain 7 Position Comfortable Y Safe Environment Y Fall Risk Change N 10/22/2017 19:14 Patient Interaction - Allergy Band on [facility] PATIENT NAME: NIKOSMAXX [address] MEDICAL REC #: [id number] [place] [id number] EMERGENCY DEPARTMENT CHART EMERGENCY DEPARTMENT PHYSICIAN Pt. 10/22/2017 19:15 BSF 10/22/2017 19:14 Patient Interaction - Call light placed within reach. 10/22/2017 19:15 BSF 10/22/2017 19:14 Patient Interaction - Name Band on Pt 10/22/2017 19:15 BSF 10/22/2017 19:14 Patient Interaction - Introduce self to Patient. 10/22/2017 19:15 BSF 10/22/2017 19:14 Primary DOC Guide - A. 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 Geriatric (65+) Fall Risk Assessment 10/22/2017 19:15 BSF STEADI Score Total 2 STEADI Fall Assessment Score of 4 or greater? No Use a cane or walker? Yes (2) 10/22/2017 19:15 Primary DOC Guide - E. Family Violence Assessment 10/22/2017 19:15 BSF Within the past year, has anyone ever pushed, shoved, slapped, choked, hit, punched or kicked you: No Within the past year, has anyone ever pressured or forced you to have sexual activities when you did not want to: No Do you feel safe and well cared for: Yes Is there a partner from a previous or current relationship that is making you feel unsafe now: No Family Violence Clinical Observation All Negative Except 10/22/2017 19:15 Primary DOC Guide - D. Psychosocial Assessment 10/22/2017 19:15 BSF Over the Last 2 weeks, how often have you had little [facility] PATIENT NAME: MAXX KNOTT [facility] [facility] MEDICAL REC #: [id number] [place] [address] EMERGENCY DEPARTMENT CHART EMERGENCY DEPARTMENT PHYSICIAN interest or pleasure in doing things (0) Not at All Is Psychosocial Assessment Score 3 or more? If score is 3 or more please consult ED Navigator! No Total Psychosocial Assessment Score 0 Over the last 2 weeks, how often have you been feeling down, depressed or hopeless (0) Not at All 10/22/2017 20:38 Admit/Discharge - *Discharge instructions/tests andamp; procedures/med list reviewed and provided; prescriptions given to patient 10/22/2017 20:38 BSF 10/22/2017 20:38 Admit/Discharge - Ambulated with steady gait home 10/22/2017 20:38 BSF 10/22/2017 20:38 Admit/Discharge - Discharge infomation reviewed with pt 10/22/2017 20:38 BSF MEDICATIONS IV IV Fluid: B 10/22/2017 18:13 10/22/2017 18:13 GORDO Line #: 1 Fluid: Saline Lock Rate: ml/hr Location: antecubital fossa left Ndl Gauge: 18 # Attempts: 1 Notes: site placed under ultrasound guidance. flushes and draws well with no adverse. IV Fluid: E 10/22/2017 20:38 10/22/2017 20:38 BSF Line #: 1 Rate: ml/hr Location: antecubital fossa left Ndl Gauge: 18 # Attempts: 1 Notes: catheter intact. dressing applied. I AND O VITALS [facility] PATIENT NAME: MAXX KNOTT [address] [place] MEDICAL REC #: [id number] [place] [address] EMERGENCY DEPARTMENT CHART EMERGENCY DEPARTMENT PHYSICIAN VS-ROUTINE Time: 10/22/2017 16:31 B/P: 185/82 - Left Upper Arm - Sitting - Machine Pulse: 91 - Monitor Resp: 18 Sa02: 99 Room Air Temp: 98.20 F - Oral 10/22/2017 16:33 LDP VS-Pain Time: 10/22/2017 16:31 Pain Level: 9 10/22/2017 16:33 LDP VS-GCS Time: 10/22/2017 16:31 Visual: 4 Verbal: 5 Motor: 6 GCS Total: 15 10/22/2017 16:33 LDP VS-HT/WT Time: 10/22/2017 16:31 Ht: 172.7 cm Stated Weight: 88.5 kg Stated 10/22/2017 16:33 LDP VS-Visual Time: 10/22/2017 16:31 10/22/2017 16:33 LDP VS-FHT Time: 10/22/2017 16:31 10/22/2017 16:33 LDP VS-Notes Time: 10/22/2017 16:31 map 118 10/22/2017 16:33 LDP VS-ROUTINE Time: 10/22/2017 18:38 B/P: 156/67 - Left Upper Arm - Lying - Machine Pulse: 82 - Monitor Resp: 20 10/22/2017 18:39 BSF VS-Pain Time: 10/22/2017 18:38 Pain Level: 7 10/22/2017 18:39 BSF VS-GCS Time: 10/22/2017 18:38 10/22/2017 18:39 BSF VS-HT/WT Time: 10/22/2017 18:38 10/22/2017 18:39 BSF VS-Visual Time: 10/22/2017 18:38 10/22/2017 18:39 BSF VS-FHT Time: 10/22/2017 18:38 10/22/2017 18:39 BSF VS-Notes Time: 10/22/2017 18:38 map 97 10/22/2017 18:39 BSF VS-ROUTINE Time: 10/22/2017 20:34 B/P: 169/73 - Left Upper Arm - Lying - Machine Pulse: 80 - Monitor Resp: 20 Sa02: 95 Room Air 10/22/2017 20:34 BSF VS-Pain Time: 10/22/2017 20:34 Pain Level: 5 10/22/2017 20:34 BSF VS-GCS Time: 10/22/2017 20:34 10/22/2017 20:34 BSF VS-HT/WT Time: 10/22/2017 20:34 10/22/2017 20:34 BSF VS-Visual Time: 10/22/2017 20:34 10/22/2017 20:34 BSF VS-FHT Time: 10/22/2017 20:34 10/22/2017 20:34 BSF VS-Notes Time: 10/22/2017 20:34 map 105 10/22/2017 20:34 BSF ORDERS [facility] PATIENT NAME: MAXX KNOTT0 [address] MEDICAL REC #: [id number] [place] [address] EMERGENCY DEPARTMENT CHART EMERGENCY DEPARTMENT PHYSICIAN Discharge patient 10/22/2017 20:29 N/A Ordered: 10/22/2017 20:28 By . Other Reviewed: 10/22/2017 20:28 By . Other Morphine (IV)*(4mg/ml) DOSE:4 mg IV 10/22/2017 19:07 N/A Ordered: 10/22/2017 18:50 By Catarino Black Completed Time: 10/22/2017 19:06 By Catarino Black Noted Time: 10/22/2017 18:50 BSF WOMEN DESIGNER ORDER: GFRP 10/22/2017 18:40 None Ordered: 10/22/2017 18:40 Completed Time: 10/22/2017 18:40 Results Time: 10/22/2017 18:40 CBC with diff 10/22/2017 18:36 N/A Ordered: 10/22/2017 17:30 By Catarino Black Completed Time: 10/22/2017 18:36 By Catarino Black Noted Time: 10/22/2017 18:18 BSF Results Time: 10/22/2017 18:36 BMP 10/22/2017 18:40 N/A Ordered: 10/22/2017 17:30 By Catarino Black Completed Time: 10/22/2017 18:40 By Catarino Black Noted Time: 10/22/2017 18:18 BSF Results Time: 10/22/2017 18:40 CT abd and pel with IV con only 10/22/2017 19:51 N/A Ordered: 10/22/2017 17:30 By Catarino Black Completed Time: 10/22/2017 19:51 By Catarino Black Indication: Abdominal Pain Noted Time: 10/22/2017 19:31 Question: Patient has history of true RCM allergy? Answer: NO IV hep lock 10/22/2017 18:19 N/A Ordered: 10/22/2017 17:14 By Catarino Black Completed Time: 10/22/2017 18:19 By Catarino Black Noted Time: 10/22/2017 17:27 BSF [facility] PATIENT NAME: MAXX KNOTT [facility] MEDICAL REC #: [id number] [place] [address] EMERGENCY DEPARTMENT CHART EMERGENCY DEPARTMENT PHYSICIAN Morphine (IV)*(4mg/ml) DOSE:4 mg IV 10/22/2017 18:19 N/A Ordered: 10/22/2017 17:14 By Catarino Black Completed Time: 10/22/2017 18:19 By Catarino Black Noted Time: 10/22/2017 17:27 BSF Zofran (IV)*(2mg/ml) DOSE: 4 mg IV 10/22/2017 18:19 N/A Ordered: 10/22/2017 17:14 By Catarino Black Completed Time: 10/22/2017 18:18 By Catarino Black Noted Time: 10/22/2017 17:27 BSF DISCHARGE Diagnosis: Intestinal prolapse from colostomy - resolved 10/22/2017 20:28 Disposition: Time: 10/22/2017 20:28 Discharge Time: 10/22/2017 20:40 Type: Discharge Condition: Stable for admission/discharge/transfer after emergency evaluation/treatment Category: *NOT APPLICABLE Referral: 10/22/2017 20:28 Admit Physician: . Other PRESCRIPTIONS Percocet 5 mg-325 mg tablet 10/22/2017 20:37 SI q4-6h for 3 days Additional Instructions: ICD 10 R10.8 Dispense: 10 / Refills: CHARGES SIGNATURE STACEY MUSTAFAP EMORY JACKSON RN BSF [facility] PATIENT NAME: [facility]NOT[facility] [facility] MEDICAL REC #: [id number] [place] [address] EMERGENCY DEPARTMENT CHART EMERGENCY DEPARTMENT PHYSICIAN Catarino Black MD [id number] [facility] PATIENT NAME: MAXX KNOTT [facility] MEDICAL REC #: [id number] [place] [address] EMERGENCY DEPARTMENT CHART EMERGENCY DEPARTMENT PHYSICIAN CBC W/DIFF Collected: 10/22/2017 Status: F Source: [facility] 6:08 PM [facility] REPOSITORY Order Comment: [place]: TYPE CODE TESTS RESULT OUT OF RANGE REFERENCE UNITS LAB L200.10848 4.5-11.0 K/CU MM WBC Normal 8.3 LAB L200.04922 4.50-6.00 M/CU MM Low RBC 4.38 LAB L200.35400 13.5-17.5 G/DL Low HGB 13.1 LAB L200.68063 41.0-53.0 % Low HCT 39.3 LAB L200.05875 80.0-99.0 fl MCV Normal 89.7 LAB L200.56145 32.0-36.0 GM/DL MCHC Normal 33.3 LAB L200.27356 11-14.5 High RDW 14.7 LAB L200.44497 9.4-12.4 MPV Normal 10.2 LAB L200.77364 150-450 K/CU MM PLT Normal 314 LAB L200.64469 45-75 % NEUTROPHILS Normal % 67.5 LAB L200.10776 Less than 2 % IMMATURE Normal GRAN % 0.2 LAB L200.13638 20-40 % LYMPH % Normal 21.6 LAB L200.54429 2-10 % MONOCYTE % Normal 7.2 LAB L200.86212 0-5 % EOSINOPHIL Normal % 3.0 LAB L200.64411 0-2 % BASOPHIL % Normal 0.5 LAB L200.64704 2.0-8.3 K/CU MM NEUTROPHIL Normal ABS 5.60 LAB L200.32779 Less than 2 K/CU MM IMMATR GRAN Normal ABS 0.00 LAB L200.17437 0.9-4.4 K/CU MM LYMPH ABS Normal 1.80 LAB L200.08874 0.1-1.1 K/CU MM MONO ABS Normal 0.60 LAB L200.00919 0-0.5 K/CU MM EOS ABS Normal 0.30 LAB L200.30157 0-0.2 K/CU MM BASO ABS Normal 0.00 LAB L200.57620 Less than 1 % NRBC Normal 0.0 Performed By: #### L200.44960 #### [facility] [address]# [phone] [facility] Collected: 10/22/2017 Status: F Source: [facility] 6:08 PM [facility] REPOSITORY Order Comment: [place]: TYPE CODE TESTS RESULT OUT OF RANGE REFERENCE UNITS LAB L500.94740 136-145 MMOL/L Normal NA 139 LAB L500.90817 3.5-5.1 MMOL/L Normal K 4.2 LAB L500.94029 98-107 MMOL/L Normal CL 101 LAB L500.53306 21-32 MMOL/L Normal CO2 32 LAB L500.54653 5-16 MMOL/L Normal AGAP 6 LAB L500.08660 70-100 MG/DL High GLU 117 Result Comment: 70-100- Normal Fasting; 100-125 Impaired Fasting; greater than 126 on more than one result- Diabetes. ADA guidelines. Results may be falsely elevated after the administration of Sulfapyridine. Results may be falsely depressed after the administration of Sulfasalazine. LAB L500.26200 7-26 MG/DL Normal BUN 14 LAB L500.50205 0.670-1.170 MG/DL Normal CREAT 0.809 Result Comment: Patients receiving either N-Acetylcysteine (NAC) or Metamizole prior to venipuncture, may have falsely depressed results. LAB L500.28076 15-24 Normal BUN/CREA 17 LAB L500.63503 8.5-10.1 MG/DL Normal CALCIUM TOTAL 9.9 Performed By: #### L500.07137, L500.87863 #### [facility] [address] [place] [address] GFR EST Collected: 10/22/2017 Status: F Source: [facility] 6:08 PM [facility] REPOSITORY Order Comment: [place]: TYPE CODE TESTS RESULT OUT OF RANGE REFERENCE UNITS LAB L500.16526 ML/MIN Normal IF non-AFR Greater than AMER 60 LAB L500.24122 ML/MIN Normal IF Greater than AMER 60 Performed By: #### L500.36682, L500.90231 #### [facility] [address] [place] [address] CT ABD/PEL W IV Observed: 10/22/2017 Status: F Source: [facility] CONTRAST ONLY 4:56 PM [facility] REPOSITORY CT ABD/PEL W IV CONTRAST ONLY Ordering Physician: Catarino Black MD 10/22/2017 5:[address] ABDOMEN AND PELVIS WITH CONTRAST Clinical Statement: Abdominal pain, fall Comparison: 7317 TECHNIQUE: Axial images of the abdomen and pelvis were obtained following the uneventful administration of 100 cc Isovue-300. FINDINGS: Images obtained through the lung bases are unremarkable. The liver, spleen, pancreas, gallbladder and right adrenal gland are unremarkable. Nodular thickening of the left adrenal gland is unchanged. The kidneys are symmetric in size and enhancement. There is symmetric perinephric stranding which is chronic. Two cysts are again noted in the left kidney. There is a subcentimeter hypodensity in the inferior pole of the right kidney, statistically a small cyst. There is no hydronephrosis. Atherosclerotic calcifications are present within the aorta. There is circumferential wall thickening of the urinary bladder which is incompletely distended. The prostate gland is enlarged. It is heterogeneous. The stomach is unremarkable. There is no evidence of bowel obstruction. A right lower quadrant ostomy is identified again demonstrating parastomal hernia small and large bowel as well as omental fat appearing similar to the prior study. Diverticuli are scattered throughout the distal colon without evidence of acute diverticulitis. There is no intraperitoneal free air, focal fluid collection or pathologic adenopathy. Advanced multilevel degenerative changes are present in the visualized spine. There are moderate degenerative changes in the hips. IMPRESSION: 1. Right lower quadrant ostomy with a parastomal hernia containing small and large bowel as well as omental fat appears unchanged. 2. Circumferential wall thickening of the urinary bladder may be in part secondary to incomplete distention and/or chronic outlet obstruction. 3. Enlarged heterogeneous prostate gland. 4. Diverticulosis. 5. Other chronic incidental findings detailed above are stable. ---- Electronic Signature on File ---- Signed By: Melissa Tomlinson MD [email or web address] Dictated: 10/22/2017 7:35 PM Signed: 10/22/2017 7:41 PM Reported By: MELISSA TOMLINSON M.D. Signed By: MELISSA TOMLINSON M.D. ABDOMEN SINGLE VIEW Observed: 10/20/2017 Status: F Source: [facility] (PORTABLE) 10:24 AM [facility] REPOSITORY [facility] Imaging Services [address] [place] [id number] Abdomen Single View (Portable) MR#: [id number] Acct: [id number] Name: MAXX KNOTT Rep #: [id number] : 1950 67 From: Jordan Rob MD PCP: [facility], [place] Status: REG ER Study: Abdomen Single View (Portable) Date of Exam: 10/20/17 Exam# [id number] Ordering Dr: Chele Smith MD STUDY: X-RAY - ABDOMEN/PELVIS REASON FOR EXAM: Male, 67 years old. Abdominal pain. Stoma keeps popping out of colostomy. TECHNIQUE: AP supine view. COMPARISON: None. FINDINGS: Normal visualized lung bases. There is an unremarkable bowel gas pattern. There is no demonstrated free abdominal air. The visualized liver, spleen and kidneys are grossly normal in size and morphology. Normal soft tissue structures. Degenerative disc space narrowing at L2-L3, L3-L4, L4-L5 and L5-S1 disc space levels. No acute osseous abnormality. RAD/Abdomen Single View (Portable) IMPRESSION: No acute abnormality in the abdomen and pelvis. Electronically Signed: Jordan Rob MD at 12:36 EDT , Service support , CC: [facility]; Chele Smith MD Prep Room Supervisor: Signed DOWNTIME REPORT Observed: 10/17/2017 Status: F Source: [place] 1:49 PM [facility] REPOSITORY [facility] Medical Records Department [address] [place] [id number] Downtime Report MR#: [id number] Acct: [id number] Name: MAXX KNOTT Rep #: [id number] : 1950 67 From: Radhika Ahn MD PCP: [place] Status: DEP This patient was seen during an EMR downtime October 01, 2017 - October 08, 2017. This patient may have a combination of paper and electronic documentation or all paper documentation. All documentation is viewable within the e-chart portion of [facility] for each patient visit. PROGRESS Observed: 10/17/2017 Status: COMPLETED Source: [place] 9:23 AM [facility] REPOSITORY HNO ID: [id number] Author: Eligio (Rn) MITCHELL Banks Service: (none) Author Type: Registered Nurse Type: Progress Notes Filed: 10/17/2017 9:23 AM Note Text: Unable to reach patient at this time, left VM to return call to the office. Eligio Banks RN ED NOTE Observed: 10/10/2017 Status: COMPLETED Source: [place] 1:00 AM [facility] REPOSITORY HNO ID: [id number] Author: Sim KingRn) MITCHELL Najera Service: Emergency Medicine Author Type: Registered Nurse Type: ED Notes Filed: 10/10/2017 2:04 AM Note Text: Pt discharged home in stable condition. Pt voiced understanding of discharge instructions and f/u recommendations. All questions answered. Prescriptions reviewed and PIV discontinued. ED NOTE Observed: 10/10/2017 Status: COMPLETED Source: [place] 12:45 AM [facility] REPOSITORY HNO ID: [id number] Author: Sim Toth) MITCHELL Najera Service: Emergency Medicine Author Type: Registered Nurse Type: ED Notes Filed: 10/10/2017 2:05 AM Note Text: Placed ostomy bag onto pt. Pt tolerated procedure CONSULT Observed: 10/09/2017 Status: COMPLETED Source: [place] 9:44 PM [facility] REPOSITORY HNO ID: [id number] Author: Jay Alexander Service: General Surgery Author Type: Resident Type: Consults Filed: 10/09/2017 11:28 PM Note Text: . 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 Yoo -Discussed with senior Dr. Salinas and staff Dr. 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 Patient has many ED admissions for the similar complaint and has been scheduled for follow up but no appointment has been kept. States he has pain and thickening of his stools recently. Denies and n/v, no blood. No CP or SOB. Currently AF and VSS PAST MEDICAL HISTORY: PAST MEDICAL HISTORY Diagnosis Date - AAA (abdominal aortic aneurysm) without rupture (HCC) 05/13/[address] a/p - CAD (coronary artery disease) 2005 CAD s/p CABG x3 (GKSP-HNP-rjvaaj, RDP-TRP-fmjrbb, COZ-XF4-bwcuaxqu) (2006 at [facility]) - COPD (chronic obstructive pulmonary disease) ([facility]) - Current every day smoker PT SMOKES A PIPE - Diverticulitis Perforated Diverticulitis - Diverticulitis of sigmoid colon 05/15/2017 Added automatically from request for surgery [id number] - Hx of CABG - Pacemaker 02/16/2017 s/p PPM () 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 - Peritonitis ([facility]) PAST SURGICAL HISTORY: PAST SURGICAL HISTORY Procedure Laterality Date - APPENDECTOMY HX - COLOSTOMY 07/2016 Diverting Loop Colostomy of the Transverse Colon - HEART SURGERY HX triple bypass 10 yrs ago - PPM IMPLANT - STENT - CORONARY FAMILY HISTORY: FAMILY HISTORY Problem Relation Age of Onset - Coronary Artery Disease Father - Hyperlipidemia Father SOCIAL HISTORY: Social History Substance Use Topics - Smoking status: Current Every Day Smoker Packs/day: 0.50 Years: 35.00 Types: Pipe, Cigarettes - Smokeless tobacco: Never Used Comment: Quit cigarettes 11-16-16 now smoking 4 pipes as of 04-18-17 - Alcohol use No MEDICATIONS: Prior to Admission Medications: penicillin V potassium (V-CILLIN, VEETIDS) 500 mg tablet Take 1 tablet by mouth four times daily for 7 days. tamsulosin ER (FLOMAX) 0.4 mg cp24 Take 0.4 mg by mouth once daily as needed. ondansetron (ZOFRAN) 4 mg tablet Take 4 mg by mouth every 6 hours as needed. oxyCODONE-acetaminophen (PERCOCET) 10-325 mg tablet Take 1 tablet by mouth every 6 hours as needed for Pain. Has had both 5 and 10 mg strength prescribed over past year, says he currently has 10 mg strength at home vitamin B complex (B COMPLEX ORAL) Take 1 tablet by mouth once daily. aspirin, enteric coated (ASPIRIN, ENTERIC COATED) 81 mg EC tablet Take 81 mg by mouth once daily. cyclobenzaprine (FLEXERIL) 10 mg tablet Take 1 tablet by mouth at bedtime as needed for Muscle Spasm. amLODIPine (NORVASC) 10 mg tablet Take 10 mg by mouth once daily. loratadine 10 mg cap Take 1 capsule every day by oral route as needed pravastatin (PRAVACHOL) 40 mg tablet Take 40 mg by mouth daily at bedtime. gabapentin (NEURONTIN) 300 mg capsule Take 2 capsules by mouth daily at bedtime for 90 days. metoprolol succinate ER (TOPROL XL) 100 mg Tb24 Take 1 tablet by mouth once daily. QUEtiapine (SEROQUEL) 200 mg tablet Take 2 tablets by mouth daily at bedtime. COMPOUNDED PRESCRIPTION One Piece Ostomy Pouch Item Type: Coloplast Sensura One Piece Non-Sterile with Window 3-4 1/2'' ?5/BoxICD 10: Prolapsed Stoma K94.09 COMPOUNDED PRESCRIPTION Paste: Convatec Stomahesive 1 tubeICD 10: Prolapsed Stoma K 94.09 MULTIVIT WITH IRON,MINERALS (MULTIVITAMIN AND MINERALS ORAL) Take 1 capsule by mouth once daily. albuterol HFA (PROVENTIL HFA, VENTOLIN HFA) 90 mcg/actuation inhaler Inhale 2 Puffs as instructed every 4 hours as needed for Wheezing/Shortness of Breath. fluticasone (FLONASE) 50 mcg/actuation nasal spray Use 1 [place] in the nose once daily as needed. nitroglycerin sublingual (NITROSTAT) 0.[address] ONE(1) TABLET UNDER TONGUE NEEDED FOR CHEST PAIN. IF NO PAIN RELIEF CALL 911 losartan (COZAAR) 100 mg tablet Take 100 mg by mouth once daily. furosemide (LASIX) 20 mg tablet Take 40 mg by mouth once daily as needed. Current hospital medications: NaCl 0.9% 1,000 mL iv bolus 1,000 mL INTRAVENOUS ONCE ALLERGIES: ALLERGIES Allergen Reactions - Altaseptic Unknown - Brilinta [Ticagrelo* Unknown - Crestor [Rosuvastat* Myalgia - Hctz [Amiloride-Hyd* Swelling - Moxifloxacin Swelling - Other [place]-3s Unknown brelinta - Ramipril Swelling Other reaction(s): Facial swelling - Simvastatin Myalgia Other reaction(s): Facial swelling - Voltaren [Diclofena* Unknown COMPLETE REVIEW OF SYSTEMS: GENERAL: No weight loss, malaise or fevers., SEE HPI HEENT: Negative for frequent or significant headaches NECK: Negative for pain and significant neck swelling RESPIRATORY: Negative for cough, wheezing or shortness of breath. CARDIOVASCULAR: Negative for chest pain, leg swelling. GI: ab pain and large stool thickening : No history of dysuria MUSCULOSKELETAL: Negative for new joint pain. SKIN: Negative for new lesions PSYCH: Negative HEMATOLOGY/LYMPHOLOGY: Negative for prolonged bleeding NEURO: No new headaches All other reviewed and negative other than HPI. PHYSICAL EXAM: BP 136/59 Pulse 76 Temp 37 ?C (98.6 ?F) (Oral) Resp 18 Ht 172.7 cm (5' 8) Wt 88.5 kg (195 lb) SpO2 98% BMI 29.65 kg/m? General appearance: well appearing, alert, in no acute distress, well-hydrated, well nourished Skin: skin color, texture, turgor normal, no suspicious rashes or lesions Lungs: clear to auscultation, no wheezing or rhonchi Heart: RRR without murmur, gallop, or rubs. No ectopy Abdomen: TTP around the stoma site, no diffuse pain or rebound, thick stool with stoma bag full and changed. Prolapsed stoma seen, pink with no signs of ischemia or infection Extremities: No deformities, edema, or skin discoloration. Musculoskeletal: Spine range of motion normal. Muscular strength intact, Peripheral pulses: Normal Neuro: Gait normal. Sensation grossly intact. DATA: Laboratory:CBC, Coags, BMP, Mg, Phos Recent Labs 10/09/172024 WBC 11.33* HB 12.7* HCT 38.5* PLT 280 NA 139 K 4.3 CHLOR 101 CO2 25 BUN 18 CREAT 0.94 GLUC 101* CA 9.8 CSF AND Dilantin Liver Function, Amylase, AND Lipase Recent Labs 10/09/172024 TPROT 7.3 ALB 4.2 ALT 13 AST 12* ALKPHOS 78 TBILI 0.4 LIPASE 15* Jay Alexander MD General Surgery Rotating Resident PGY-1 ED NOTE Observed: 10/09/2017 Status: COMPLETED Source: [place] 8:25 PM [facility] [place] REPOSITORY HNO ID: [id number] Author: Mine Wesley Service: Emergency Medicine Author Type: Bed Setter and Scraper Meat Type: ED Notes Filed: 10/09/2017 8:32 PM Note Text: Labs were drawn and sent. CBC AND DIFFERENTIAL Collected: 10/09/2017 Status: F Source: [place] 8:25 PM [facility] [place] REPOSITORY TYPE CODE TESTS RESULT OUT OF REFERENCE UNITS RANGE LAB WBC 3.70-11.00 k/uL WBC High 11.33 LAB RBC 4.20-6.00 m/uL RBC 4.36 LAB HGB 13.0-17.0 g/dL Low Hemoglobin 12.7 LAB HCT 39.0-51.0 % Low Hematocrit 38.5 LAB MCV 80.0-100.0 fL MCV 88.3 LAB MCH 26.0-34.0 pG MCH 29.1 LAB MCHC 30.5-36.0 g/dL MCHC 33.0 LAB RDWCV 11.5-15.0 % RDW-CV 14.2 LAB PLTCT 150-400 k/uL Platelet Count 280 LAB MPV 9.0-12.7 fL MPV 10.2 LAB ANEUT % Neut% 72.6 LAB AANEUT 1.45-7.50 k/uL Abs Neut High 8.24 LAB ALYMP % Lymph% 16.0 LAB AALYMP 1.00-4.00 k/uL Abs Lymph 1.81 LAB AMONO % [place]% 9.1 LAB AAMONO <0.87 k/uL Abs [place] High 1.03 LAB AEOS % Eosin% 1.9 LAB AAEOS <0.46 k/uL Abs Eosin 0.21 LAB ABASO % Baso% 0.4 LAB AABASO <0.11 k/uL Abs Baso 0.04 LAB AUNRBC 0 /100 WBC NRBCs 0.0 LAB ABNRBC <0.01 k/uL Absolute nRBC <0.01 LAB DTYP DTYPE Auto Diff Performed By: #### CBCDIF, CMP, LIPA #### [facility] [address] [place], [place] [address] COMP METABOLIC PANEL Collected: 10/09/2017 Status: F Source: [place] 8:25 PM [facility] REPOSITORY TYPE CODE TESTS RESULT OUT OF REFERENCE UNITS RANGE LAB TP 6.3-8.0 g/dL Protein, Total 7.3 LAB ALB 3.9-4.9 g/dL Albumin 4.2 LAB CA 8.5-10.2 mg/dL Calcium, Total 9.8 LAB TBIL 0.2-1.3 mg/dL Bilirubin, Total 0.4 LAB ALKP 36-108 U/L Alkaline Phosphatase 78 LAB AST 14-40 U/L Low AST 12 LAB GLU 74-99 mg/dL Glucose High 101 Result Comment: The [place] Diabetes Association (ADA) provides guidance for cutoff values for fasting glucose and random glucose. The ADA defines fasting as no caloric intake for at least 8 hours. Fas ting plasma glucose results between 100 to 125 mg/dL indicate increased risk for diabetes (prediabetes). Fasting plasma glucose results greater than or equal to 126 mg/dL meet the criteria for diagnosis of diabetes. In the absence of unequivocal hyperglycemia, results should be confirmed by repeat testing. In a patient with classic symptoms of hyperglycemia or hyperglycemic crisis, random plasma glucose results greater than or equal to 200 mg/dL meet the criteria for diagnosis of diabetes. Reference: Standards of Medical Care in Diabetes 2016, [place] Diabetes Association. Diabetes Care. 2016.39(Suppl 1). LAB BUN 9-24 mg/dL BUN 18 LAB CRET 0.73-1.22 mg/dL Creatinine 0.94 LAB NA 136-144 mmol/L Sodium 139 LAB K 3.7-5.1 mmol/L Potassium 4.3 LAB CL 97-105 mmol/L Chloride 101 LAB CO2 22-30 mmol/L CO2 25 LAB AGAP 9-18 mmol/L Anion Gap 13 LAB ALT 10-54 U/L ALT 13 LAB GFRAA eGFR- Amer. >60 LAB GFRNAA . eGFR-All Other Races >60 Result Comment: eGFR (Estimated GFR) Units of measure: mL/min/1.73 meters squared eGFR is derived from the reexpressed MDRD Study equation using the following parameters: serum creatinine, age, gender and race. The creatinine assay has been calibrated to be traceable to IDMS. An eGFR <60 mL/min/1.73m2 for >3 months is consistent with chronic kidney disease. Refer to KDOQI guidelines for clinical interpretation. In patients with unstable renal function, e.g. those with acute kidney injury, the eGFR may not accurately reflect actual GFR. Performed By: #### CBCDIF, CMP, LIPA #### [facility] [address] [place], [place] [address] LIPASE Collected: 10/09/2017 Status: F Source: [place] 8:25 PM [facility] REPOSITORY TYPE CODE TESTS RESULT OUT OF REFERENCE UNITS RANGE LAB LIPA 16-61 U/L Low Lipase 15 Performed By: #### CBCDIF, CMP, LIPA #### [facility] [address] [place], [place] [address] ED PROV NOTE Observed: 10/09/2017 Status: COMPLETED Source: [place] 7:14 PM [facility] [place] REPOSITORY HNO ID: [id number] Author: Woo Valdovinos MD Service: Emergency Medicine Author Type: Physician Type: ED Provider Notes Filed: 10/10/2017 10:36 PM Note Text: ED Provider Note Patient Name: Maxx Knott SERVICE DATE: 10/09/17 History Patient presents with: Abdominal Pain: mid abdominal pain began this morning. patient has an ostomy. stool is formed and has difficulty coming out of his stoma. pain associated with nausea. no vomiting. Toothache: broke his right upper tooth a few days ago. No fever. 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 States that his stoma started to prolapse around noon today. He shortly afterward developed pain around the site, constant, sharp, worsening, has not tried anything for pain. States that this is the most his stoma has prolapsed despite previous episodes in the past. Also states that his stool has thickened since yesterday and that he may have had decreased output although does continue to flow. Denies nausea, vomiting, fevers, or chills. Secondary complaint of dental pain which started Sunday, located near right upper molars, constant, sharp. Denies drainage. Denies difficulty swallowing or handling secretions. PAST MEDICAL HISTORY Diagnosis Date - AAA (abdominal aortic aneurysm) without rupture ([facility]) 05/13/[address] a/p - CAD (coronary artery disease) 2005 CAD s/p CABG x3 (BTJL-ZOR-xstfls, PPO-QJJ-qcxswt, SLP-UF3-nhcjtdlp) (2006 at [place]) - COPD (chronic obstructive pulmonary disease) ([facility]) - Current every day smoker PT SMOKES A PIPE - Diverticulitis Perforated Diverticulitis - Diverticulitis of sigmoid colon 05/15/2017 Added automatically from request for surgery [id number] - Hx of CABG - Pacemaker 02/16/2017 s/p PPM () 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 - Peritonitis (HCC) PAST SURGICAL HISTORY Procedure Laterality Date - APPENDECTOMY HX - COLOSTOMY 07/2016 Diverting Loop Colostomy of the Transverse Colon - HEART SURGERY HX triple bypass 10 yrs ago - PPM IMPLANT - STENT - CORONARY FAMILY HISTORY Problem Relation Age of Onset - Coronary Artery Disease Father - Hyperlipidemia Father Social History Social History Main Topics - Smoking status: Current Every Day Smoker Packs/day: 0.50 Years: 35.00 Types: Pipe, Cigarettes - Smokeless tobacco: Never Used Comment: Quit cigarettes 11-16-16 now smoking 4 pipes as of 04-18-17 - Alcohol use No - Drug use: No - Sexual activity: Not Currently ALLERGIES Allergen Reactions - Altaseptic Unknown - Brilinta [Ticagrelo* Unknown - Crestor [Rosuvastat* Myalgia - Hctz [Amiloride-Hyd* Swelling - Moxifloxacin Swelling - Other [place]-3s Unknown brelinta - Ramipril Swelling Other reaction(s): Facial swelling - Simvastatin Myalgia Other reaction(s): Facial swelling - Voltaren [Diclofena* Unknown Review of Systems Constitutional: Negative for activity change and appetite change. HENT: Positive for dental problem. Negative for congestion, ear discharge, ear pain, rhinorrhea, sore throat and voice change. Eyes: Negative for pain, discharge and redness. Respiratory: Negative for cough, shortness of breath, wheezing and stridor. Cardiovascular: Negative for chest pain. Gastrointestinal: Positive for abdominal pain. Negative for abdominal distention, constipation, diarrhea, nausea and vomiting. Endocrine: Negative for cold intolerance, heat intolerance and polyuria. Genitourinary: Negative for decreased urine volume, dysuria and frequency. Musculoskeletal: Negative for joint swelling. Skin: Negative for rash and wound. Neurological: Negative for headaches. Psychiatric/Behavioral: Negative for agitation and behavioral problems. Physical Exam BP 136/59 Pulse 76 Temp (Src) 98.6 (Oral) Resp 18 Ht 5' 8 (1.73m) Wt 195 lb (88.5kg) SpO2 98% BMI 29.66 kg/(m2). Physical Exam Constitutional: He is oriented to person, place, and time. He appears well-developed and well-nourished. No distress. HENT: Head: Normocephalic and atraumatic. Poor carious dentition. Right upper molars and premolars particularly in poor condition. No signs of periapical abscess. Sublingual space is soft. Mallampati 1. Uvula midline. No tonsillar exudates. Eyes: EOM are normal. Pupils are equal, round, and reactive to light. Right eye exhibits no discharge. Left eye exhibits no discharge. Neck: Normal range of motion. Neck supple. No JVD present. No tracheal deviation present. Cardiovascular: Normal rate, regular rhythm, normal heart sounds and intact distal pulses. No murmur heard. Pulmonary/Chest: Effort normal and breath sounds normal. No stridor. No respiratory distress. He has no wheezes. He has no rales. He exhibits no tenderness. Abdominal: Soft. Bowel sounds are normal. He exhibits no distension. There is no rebound and no guarding. Large stomal prolapse, 8-10 cm of bowel. Bowel appears light pink and not strangulated. Tenderness around site of stoma. Musculoskeletal: Normal range of motion. He exhibits no edema or tenderness. Neurological: He is alert and oriented to person, place, and time. No cranial nerve deficit. Coordination normal. Skin: Skin is warm. No rash noted. He is not diaphoretic. No erythema. No pallor. Psychiatric: He has a normal mood and affect. His behavior is normal. Diagnostic Testing ED Labs Ordered and Reviewed - No data to display Procedures Medical Decision Making MDM MDM: Patient presents with complaint of Abdominal pain near his stomal site with large prolapsed bowel. Bowel appears healthy and is known to have reducible prolapse at the site. Given that he is still draining stool and is not having nausea or vomiting, held off on obtaining imaging until colorectal was able to see the patient. Colorectal surgery resident evaluated and is still completing evaluation at time of sign out to Dr. Valdovinos at 2044. Labs: CBC: anemic CMP: pending Lipase: pending Imagin/18 CT abd: IMPRESSION:?? 1. Right mid abdominal colostomy containing multiple loops of herniated bowel, new since prior examination. 2. No abnormality of the remaining intra-abdominal or intrapelvic large or small bowel except for descending and sigmoid colon diverticula. 3. Prostatomegaly and nonspecific urinary bladder wall thickening likely related to relative urinary bladder outlet obstruction. 4. No evidence of mass, lymphadenopathy, inflammatory changes or other significant interval change.?? Course: 7:40 PM: spoke with colorectal on the phone who stated he would come see the patient. He is aware that I have not yet ordered a CT scan because I'm hopeful that his prolapse will be reproducible like it has been in the past. -Colorectal surgery is bedside -sign out to Dr. Valdovinos ED Course / Clinical Impression Clinical Impressions as of Oct 09 2053 Prolapse of ileostomy (HCC) Pain, dental Plan Dispo: pending at sign out SIGNATURE: DO Mata Diaz (Res) Carmen Resident 10/09/172055 Attending Note I evaluated the patient and personally participated in the nelson components. I agree with the resident's findings and plan with the following revisions and/or additions: 67 yo male presents to the ED c/o abdominal pain with associated stomal prolpase. Has had multiple prior ED presentations for similar complaints. Also c/o dental pain. On exam, awake/alert/NAD. Abdomen: Soft, stoma on right with prolapsed bowel noted in ostomy bag. Labs unremarkable. [facility] consulted and evaluated in ED. No acute surgical recommendations, and OK for d/c home. F/U [facility] clinic. Given rx ABX's for dental infection. Signature: Woo Valdovinos MD Date: 10/10/2017 Time: 10:32 PM Woo Valdovinos MD 10/10/172235 ED TRIAGE NOTE Observed: 10/09/2017 Status: COMPLETED Source: [place] 5:13 PM [facility] REPOSITORY HNO ID: [id number] Author: Livia Ahn (Pa) Service: (none) Author Type: Physician Tool Grinder Operator Surface Type: ED Triage Notes Filed: 10/09/2017 5:15 PM Note Text: ED INTAKE NOTE Patient Name: Maxx Knott Service Date: 10/09/17 BRIEF HPI: 67 y/o male with AAA, CAD, COPD, diverticulitis perforated s/p colostomy presents to ED with generalized abdominal pain and hard stools from ostomy output. He states pain is 8/10 aching pain, diffuse around his whole abdomen. Hard output from ostomy, states ostomy is pushing out of bag. Denies fevers, n/v. Also notes dull tooth ache, unable to get into dentist. BRIEF EXAM: Awake and Alert RRR CTAB Abd is soft, mildly distended with diffuse tenderness. Ostomy bag full of hard light brown stool, stoma is protruding into bag INTAKE WORKUP: Bloodwork: CBC CMP Lipase Lactate SIGNATURE: Livia Ahn PA-C CT ABDOMEN/PELVIS W/O Observed: 10/07/2017 Status: F Source: [place] 7:40 PM [facility] REPOSITORY ORIGINAL CT ABDOMEN/PELVIS W/O CONTRAST: Multiplanar coronal, sagittal, and axial reconstructions were reviewed on a separate workstation CLINICAL STATEMENT: Abdominal pain near stoma, history of diverticulitis COMPARISON: CT abdomen/pelvis 10/03/2017 TECHNIQUE: This exam was performed according to our departmental dose optimization program, including but not limited to: automated exposure control, adjustment of the mAs and/or kVp according to patien t size and/or exam, and use of an iterative reconstruction algorithm where applicable. FINDINGS: Evaluation is suboptimal secondary to the lack of IV contrast. Calcified granuloma seen at the left lung base. No pleural fluid. The unenhanced liver, gallbladder, spleen, right adrenal gland, and pancreas are normal. The left adrenal gland is mildly thickened, unchanged from the prior exam. Adrenal gland thickening density measu res less than 10 Hounsfield unit, considered benign. The stomach, duodenum, and small bowel demonstrate no acute abnormality. No evidence of obstruction. Parastomal hernia along the right side of the abdomen contains a loop of small bowel and intraperiton eal fat without evidence of obstruction or strangulation. Scattered diverticula are seen along the sigmoid and descending colon without evidence of acute diverticulitis. No pneumoperitoneum. The kidneys are symmetric in size, with multiple hyperdense lesions bilaterally, most consistent with hemorrhagic cysts. Exophytic lesion at the midportion of the left kidney is unchanged. No radiopaque stones or obstructive uropathy. The ureters are not dilated. The urinary bladder is normal. There is prostatomegaly, with the prostate measuring up to 5.9 cm in transverse dimension. The aorta is atherosclerotic. No lymphadenopathy within the abdomen or pelvis. No aggressive osseous lesions or acute osseous findings. Degenerative changes are seen throughout the lumbar spine. IMPRESSION: 1. Parastomal hernia containing a loop of small bowel without evidence of obstruction or strangulation. 2. Diverticulosis without diverticulitis. 3. Hyperdensities within the kidneys bilaterally is most consistent with multiple hemorrhagic cysts. Exophytic lesion at the midportion of the left kidney demonstrates no enhancement when compared to th e 10/07/2017 study, likely benign. No urinary tract stones or obstructive uropathy. I have personally reviewed the images of this examination and agree with the resident's findings and interpretation. Interpreted By: Davis Young MD Preliminary Report By: Jay Diaz DO Electronically Signed By: Davis Young MD Dictated Date: 10/07/2017 7:48:50 PM Prelim Date: 10/07/2017 7:56:08 PM Sign Date: 10/07/2017 8:07:00 PM CBC Collected: 10/07/2017 Status: F Source: [facility] 7:22 [facility] [place] REPOSITORY TYPE CODE TESTS RESULT OUT OF REFERENCE UNITS RANGE LAB WBC(LOINC) 4.60-10.80 10 3/mcL WBC 10.50 LAB RBCCT(LOINC 4.04-6.13 10 6/mcL ) RBC 4.81 LAB HGB(LOINC) 14.0-18.0 G/dL Hgb 14.6 LAB HCT(LOINC) 42.0-52.0 % Hct 43.0 LAB MCV(LOINC) 80.0-94.0 fL MCV 89.6 LAB MCH(LOINC) 27.0-31.2 pg MCH 30.4 LAB MCHC(LOINC) 31.8-35.4 G/dL MCHC 33.9 LAB RDW(LOINC) 11.5-14.5 % High RDW 15.0 LAB PLT(LOINC) 130-400 10 3/mcL Platelet 293 LAB MPV(LOINC) 7.4-10.4 fL MPV 8.1 Performed By: #### BMP, GFR, ADIFF, ANEU, CBC #### [place] [id number] .AUTO DIFF Collected: 10/07/2017 Status: F Source: [facility] 7:22 PM [facility] REPOSITORY TYPE CODE TESTS RESULT OUT OF REFERENCE UNITS RANGE LAB MARGARITO(LOINC) 37.0-80.0 % Neutrophil % 75.6 LAB LYM(LOINC) 10.0-50.0 % Lymphocyte % 13.6 LAB MON(LOINC) 1.7-13.0 % Monocyte % 7.1 LAB EO(LOINC) 0.0-7.0 % Eosinophil % 3.1 LAB BAS(LOINC) 0.0-2.5 % Basophil % 0.6 LAB ABLYM(LOIN 0.77-3.85 10 3/mcL C) Lymphocyte, 1.40 Absolute LAB PAO(LOINC 0.15-1.00 10 3/mcL ) Monocyte, 0.70 Absolute LAB AEOS(LOINC 0.00-0.40 10 3/mcL ) Eosinophil, 0.30 Absolute LAB ABAS(LOINC 0.00-0.19 10 3/mcL ) Basophil, 0.10 Absolute Performed By: #### BMP, GFR, ADIFF, ANEU, CBC #### [address] [address] .NEUABS Collected: 10/07/2017 Status: F Source: [facility] 7:22 [facility] [place] REPOSITORY TYPE CODE TESTS RESULT OUT OF REFERENCE UNITS RANGE LAB ANEU(LOINC) 2.85-6.16 10 3/mcL High Neutrophil, 7.90 Absolute Performed By: #### BMP, GFR, ADIFF, ANEU, CBC #### [address] [address] .GFR Collected: 10/07/2017 Status: F Source: [facility] 7:22 [facility] [place] REPOSITORY TYPE CODE TESTS RESULT OUT OF REFERENCE UNITS RANGE LAB GFRAA(LOINC ml/min/1.73 ) sqm GFR 81 Peruvian Result Comment: GFR Population mean for , Non- Americans Ages 20-29 = 116 mL/min/1.73 sq.m. Ages 30-39 = 107 mL/min/1.73 sq.m. Ages 40-49 = 99 mL/min/1.73 sq.m. Ages 50-59 = 93 mL/min/1.73 sq.m. Ages 60-69 = 85 mL/min/1.73 sq.m. Ages 70+ = 75 mL/min/1.73 sq.m. Chronic Kidney Disease: Less than 60 mL/min/1.73 square meters End Stage Renal Disease: Less than 15 mL/min/1.73 square meters LAB GFRNO(LOINC) ml/min/1.73sqm GFR Non- >60 Result Comment: GFR Population mean for , Non- Americans Ages 20-29 = 116 mL/min/1.73 sq.m. Ages 30-39 = 107 mL/min/1.73 sq.m. Ages 40-49 = 99 mL/min/1.73 sq.m. Ages 50-59 = 93 mL/min/1.73 sq.m. Ages 60-69 = 85 mL/min/1.73 sq.m. Ages 70+ = 75 mL/min/1.73 sq.m. Chronic Kidney Disease: Less than 60 mL/min/1.73 square meters End Stage Renal Disease: Less than 15 mL/min/1.73 square meters Performed By: #### LUPIS, GFR, ADIFF, ANEU, CBC #### [place] [address] [place], [place] [address] BMP Collected: 10/07/2017 Status: C Source: [facility] 7:22 PM [facility] REPOSITORY TYPE CODE TESTS RESULT OUT OF REFERENCE UNITS RANGE LAB GLU(LOINC) 80-115 mg/dL Glucose Level 109 LAB NA(LOINC) 136-146 mEq/L Sodium Level 140 LAB K(LOINC) 3.5-5.1 mEq/L Potassium Level 3.8 LAB CL(LOINC) 98-107 mEq/L Chloride 102 LAB CO2(LOINC) 23-31 mEq/L CO2 29 LAB EBAL(LOINC mEq/L ) Electrolyte Balance 9.0 LAB BUN(LOINC) 7.0-18.0 mg/dL BUN 17.0 LAB CRE(LOINC) 0.6-1.2 mg/dL Creatinine Lvl (s) 1.1 LAB BC(LOINC) 7-27 ratio BUN/Creatinine 15 Ratio LAB CA(LOINC) 8.4-10.2 mg/dL Calcium Lvl 10.1 Performed By: #### BMP, GFR, ADIFF, ANEU, CBC #### [place] [address] [place], [place] [address] CT ABD/PELVIS W/ IV Observed: 10/03/2017 Status: F Source: [facility] CONTRAST ONLY 5:07 PM [facility] REPOSITORY ORIGINAL CT ABD/PELVIS W/ IV CONTRAST ONLY CLINICAL STATEMENT: abdominal pain @ colostomy after fall /history of diverticulitis and peritonitis as a child TECHNIQUE: Multiple axial and coronal helical CT images were obtained from the basilar lungs to the proximal femurs. This exam was performed according to our departmental dose optimization program, incl uding but not limited to: automated exposure control, adjustment of the mAs and/or kVp according to patient size and/or exam, and use of an iterative reconstruction algorithm where applicable. COMPARISON: CT abdomen pelvis 12/14/2016 FINDINGS: No acute abnormality is present at the lung bases. The heart is enlarged and is without pericardial effusion. The aorta demonstrates minimal ectasia and contains scattered atherosclerotic irregularities. The liver, biliary tree, pancreas, spleen, adrenal glands, kidneys and inferior vena cava show no sign of acute abnormality. Stable LEFT renal cyst. There is no sign of intestinal obstruction. No free intraperitoneal air or abnormal fluid collection or hematoma is detected. The ostomy in the RIGHT lower quadrant shows evidence of a parastomal hernia without signs of intestinal obstruction or inflammation. In the pelvis there is no abnormal fluid collection or hematoma. The prostate gland is enlarged measuring 6 cm in transverse diameter. Urinary bladder is moderately distended. There is sigmoid colon div erticulosis with no signs of diverticulitis. No pelvic mass or lymph node enlargement is present. Degenerative changes are present in the lumbar spine with no subluxation or fracture. IMPRESSION: No sign of acute abdominal or pelvic abnormality. The ostomy in the RIGHT lower quadrant shows evidence of a parastomal hernia without signs of intestinal obstruction or inflammation. I have personally reviewed the images of this examination and agree with the resident's findings and interpretation. Interpreted By: Hue Lehman MD Preliminary Report By: Melissa Rahman MD Electronically Signed By: Hue Lehman MD Dictated Date: 10/03/2017 5:29:19 PM Prelim Date: 10/03/2017 5:33:04 PM Sign Date: 10/03/2017 5:54:23 PM .GFR Collected: 10/03/2017 Status: F Source: [facility] 4:19 [facility] REPOSITORY TYPE CODE TESTS RESULT OUT OF REFERENCE UNITS RANGE LAB GFRAA(LOINC ml/min/1.73 ) sqm GFR >60 [place]uvian Result Comment: GFR Population mean for , Non- Americans Ages 20-29 = 116 mL/min/1.73 sq.m. Ages 30-39 = 107 mL/min/1.73 sq.m. Ages 40-49 = 99 mL/min/1.73 sq.m. Ages 50-59 = 93 mL/min/1.73 sq.m. Ages 60-69 = 85 mL/min/1.73 sq.m. Ages 70+ = 75 mL/min/1.73 sq.m. Chronic Kidney Disease: Less than 60 mL/min/1.73 square meters End Stage Renal Disease: Less than 15 mL/min/1.73 square meters LAB GFRNO(LOINC) ml/min/1.73sqm GFR Non- >60 Result Comment: GFR Population mean for , Non- Americans Ages 20-29 = 116 mL/min/1.73 sq.m. Ages 30-39 = 107 mL/min/1.73 sq.m. Ages 40-49 = 99 mL/min/1.73 sq.m. Ages 50-59 = 93 mL/min/1.73 sq.m. Ages 60-69 = 85 mL/min/1.73 sq.m. Ages 70+ = 75 mL/min/1.73 sq.m. Chronic Kidney Disease: Less than 60 mL/min/1.73 square meters End Stage Renal Disease: Less than 15 mL/min/1.73 square meters Performed By: #### BMP, GFR #### [place] [address] BMP Collected: 10/03/2017 Status: F Source: [facility] 4:19 PM [facility] REPOSITORY TYPE CODE TESTS RESULT OUT OF REFERENCE UNITS RANGE LAB GLU(LOINC) 82-115 mg/dL Glucose Level 111 LAB NA(LOINC) 136-145 mEq/L Sodium Level 140 LAB K(LOINC) 3.5-5.0 mEq/L Potassium Level 4.0 Result Comment: Specimen slightly hemolyzed. Results may be falsely elevated. LAB CL(LOINC) 98-110 mEq/L Chloride 104 LAB CO2(LOINC) 22-32 mEq/L CO2 29 LAB EBAL(LOINC) 4.0-15.0 mEq/L Electrolyte Balance 7.0 LAB BUN(LOINC) 8.0-22.0 mg/dL BUN 19.0 LAB CRE(LOINC) 0.60-1.40 mg/dL Creatinine Lvl (s) 1.04 LAB BC(LOINC) 10.0-22.0 ratio BUN/Creatinine Ratio 18.3 LAB CA(LOINC) 8.4-10.1 mg/dL Calcium Lvl 9.4 Performed By: #### BMP, GFR #### [place] [address] ED DOC Observed: 09/30/2017 Status: UNK Source: [facility] 10:44 PM [facility] REPOSITORY This is a preliminary report only, as the practitioner review and authentication has not occurred. 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 MEDICAL REC #: [id number] [place] [address] EMERGENCY DEPARTMENT CHART EMERGENCY DEPARTMENT PHYSICIAN NURSING ASSESSMENT ASSESSMENT NOTES TREATMENT MEDICATIONS IV I AND O VITALS ORDERS LBE (Left Before Exam) 09/30/2017 22:45 N/A Ordered: 09/30/2017 22:45 By RICH ROD DISCHARGE Diagnosis: LWT 0 09/30/2017 22:45 Disposition: Time: 09/30/2017 22:44 Discharge Time: 09/30/2017 22:44 Type: LBE Condition: LBE 1ST CALL 0 2ND CALL [phone] NO ANSWER Referral: 09/30/2017 22:45 JBF PRESCRIPTIONS [facility] PATIENT NAME: MAXX KNOTT [address] MEDICAL REC #: [id number] [place] [address] EMERGENCY DEPARTMENT CHART EMERGENCY DEPARTMENT PHYSICIAN CHARGES SIGNATURE RICH ANN [facility] PATIENT NAME: MAXX KNOTT [facility] [address] [place] MEDICAL REC #: [id number] [place] [address] EMERGENCY DEPARTMENT CHART EMERGENCY DEPARTMENT PHYSICIAN PROGRESS Observed: 09/28/2017 Status: COMPLETED Source: [place] 2:59 PM [facility] [place] REPOSITORY HNO ID: [id number] Author: Eligio KingRn) MITCHELL Banks Service: (none) Author Type: Registered Nurse Type: Progress Notes Filed: 11/02/2017 11:11 AM Note Text: PRIMARY CARE COORDINATION CHART REVIEW Patient identified for Care Coordination from: [facility] Registry- [place] Last PCP office visit: 04/18/2017 Next OV: NEEDS CHRONIC DX: COPD, CAD, Hx CABG, AAA, pacemaker Smoker CARE GAPS: CVD- Last LDL > 100 and not checked within last year HTN- BP > 140/90 UTILIZATION WITHIN THE LAST 12 MONTHS: ? ED: 15 ? HOSPITAL: 12 ? SNF: 0 PRIMARY CARE COORDINATION OUTREACH PLAN: Will reach out to patient for Care Coordination monthly and PRN Eligio Banks RN PROGRESS Observed: 09/28/2017 Status: COMPLETED Source: [place] 1:36 PM [facility] [place] REPOSITORY HNO ID: [id number] Author: Chris Ovalles Service: (none) Author Type: (none) Type: Progress Notes Filed: 11/19/2017 3:23 PM Note Text: STAMP Teamlet Meeting, Bijan Perez MD [facility] Registry on September 28, 2017 The patient has been identified by name and MRN: YES Discussed during meeting: Care Gap(s): - HTN Health Maintenance Topics with due status: Overdue Topic Date Due DTAP,TDAP,TD 07/10/1970 HEPATITIS C SCREENING 1995 COLORECTAL CANCER SCREENING,SEE MODIFIER 07/10/2001 PROSTATE CANCER SCREENING DISCUSSION 07/10/2006 ABDOMINAL AORTIC ANEURYSM SCREENING TOPIC 07/10/2016 ADULT PREVNAR-13 07/10/2016 PCP's direction(s): - Possible Care Coordination - Schedule Follow up Chris Ovalles CNPTOUTREACH Observed: 09/28/2017 Status: COMPLETED Source: [place] 12:00 AM [facility] REPOSITORY Patient Outreach (INTMMN) MAXX KNOTT ([id number]) 1950 M Date Time Provider Department 09/28/17 ELIGIO BANKS (RN) INTMMN During your visit today, we recorded the following information about you: Eligio Banks RN, RN 11/02/2017 11:11 AM Signed PRIMARY CARE COORDINATION CHART REVIEW Patient identified for Care Coordination from: [facility] Registry- [place] Last PCP office visit: 04/18/2017 Next OV: NEEDS CHRONIC DX: COPD, CAD, Hx CABG, AAA, pacemaker Smoker CARE GAPS: CVD- Last LDL > 100 and not checked within last year HTN- BP > 140/90 UTILIZATION WITHIN THE LAST 12 MONTHS: ? ED: 15 ? HOSPITAL: 12 ? SNF: 0 PRIMARY CARE COORDINATION OUTREACH PLAN: Will reach out to patient for Care Coordination monthly and PRN MITCHELL Pierce RN, RN 10/17/2017 9:23 AM Signed Unable to reach patient at this time, left VM to return call to the office. MITCHELL Pierce RN, RN 10/24/2017 2:16 PM Signed Unable to reach patient at this time, left VM to return call to the office. Eligio Banks RN Allergies As of Date: 09/28/2017 Noted Allergy Reaction ALTASEPTIC 12/17/2016 16 - Unknown BRILINTA (TICAGRELOR) 08/09/2017 16 - Unknown CRESTOR (ROSUVASTATIN CALCIUM) 12/17/2016 17 - Myalgia HCTZ (AMILORIDE-HYDROCHLOROTHIAZI*12/17/2016 7 - Swelling MOXIFLOXACIN 7 - Swelling OTHER OMEGA-3S 07/06/2017 16 - Unknown Comments: brelinta RAMIPRIL 12/17/2016 7 - Swelling Comments: Other reaction(s): Facial swelling SIMVASTATIN 12/17/2016 17 - Myalgia Comments: Other reaction(s): Facial swelling VOLTAREN (DICLOFENAC SODIUM) 12/17/2016 16 - Unknown Date Reviewed: 09/22/2017 Reviewed by: Ratna Chavez - Fully Assessed Reason for Visit: Field Specialist- Other [[id number]] Cmt: Chart Review Prescriptions as of 09/28/2017 Sig: TAMSULOSIN 0.4 MG CAPSULE Take 0.4 mg by mouth once roddy* ONDANSETRON HCL 4 MG TABLET Take 4 mg by mouth every 6 ho* OXYCODONE-ACETAMINOPHEN 10 MG* Take 1 tablet by mouth every * B COMPLEX ORAL Take 1 tablet by mouth once d* ASPIRIN 81 MG TABLET,DELAYED * Take 81 mg by mouth once dominik* CYCLOBENZAPRINE 10 MG TABLET Take 1 tablet by mouth at bed* AMLODIPINE 10 MG TABLET Take 10 mg by mouth once dominik* LORATADINE 10 MG CAPSULE Take 1 capsule every day by o* PRAVASTATIN 40 MG TABLET Take 40 mg by mouth daily at * GABAPENTIN 300 MG CAPSULE Take 2 capsules by mouth dominik* METOPROLOL SUCCINATE ER 100 M* Take 1 tablet by mouth once d* QUETIAPINE 200 MG TABLET Take 2 tablets by mouth daily* COMPOUNDED PRESCRIPTION One Piece Ostomy Pouch Item T* COMPOUNDED PRESCRIPTION Paste: Convatec Stomahesive * MULTIVITAMIN AND MINERALS ORAL Take 1 capsule by mouth once * ALBUTEROL SULFATE HFA 90 MCG/* Inhale 2 Puffs as instructed * FLUTICASONE 50 MCG/ACTUATION * Use 1 [place] in the nose once * NITROGLYCERIN 0.4 MG SUBLINGU* PLACE ONE(1) TABLET UNDER TON* LOSARTAN 100 MG TABLET Take 100 mg by mouth once orddy* FUROSEMIDE 20 MG TABLET Take 40 mg by mouth once dominik* Problem List As Of Date 09/28/2017 Noted Resolved 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 Chest pain [R07.9] INVALID FOR* Priority: A More... Hypertensive crisis [I16.9] INVALID FOR* Priority: B More... Healthcare maintenance [Z00.00] INVALID FOR* Priority: M More... Malnutrition of mild degree ([facility]) [E44.1] INVALID FOR* Priority: L More... CHF (congestive heart failure) ([facility]) [I50.9] INVALID FOR* Diverticulitis of sigmoid colon [K57.32] INVALID FOR* Class: Recurrent More... Chronic systolic congestive heart failure (HCC)*INVALID FOR* Priority: J More... CAD (coronary artery disease) [I25.10] INVALID FOR* Priority: K More... Hypertensive heart disease with congestive hear*INVALID FOR* Priority: K Hypocalcemia [E83.51] INVALID FOR*06/19/2017 Hypernatremia [E87.0] INVALID FOR*06/19/2017 Hypokalemia [E87.6] INVALID FOR*06/19/2017 Parastomal hernia without obstruction or gangre*INVALID FOR* Abdominal aortic aneurysm without rupture (HCC)*INVALID FOR* Renal cysts, acquired, bilateral [N28.1] INVALID FOR* Arthritis [M19.90] INVALID FOR* Anxiety disorder [F41.9] INVALID FOR* Essential hypertension [I10] INVALID FOR* Nicotine use disorder, F17.2 [F17.200] INVALID FOR* Melena [K92.1] INVALID FOR* Fall [W19.XXXA] INVALID FOR* Abdominal pain [R10.9] INVALID FOR* Peristomal hernia [K46.9] INVALID FOR* Encounter Status:Closed by ELIGIO BANKS on 11/02/17 CNPTOUTREANANYC Observed: 09/28/2017 Status: COMPLETED Source: [place] 12:00 AM [facility] REPOSITORY Patient Outreach (INTMMN) MAXX KNOTT ([id number]) 1950 M Date Time Provider Department 09/28/17 CHRIS LEPE (PSR) INTMMN During your visit today, we recorded the following information about you: Chris Ovalles 11/19/2017 3:23 PM Signed STAMP Teamlet Meeting, Bijan Perez MD [facility] Registry on September 28, 2017 The patient has been identified by name and MRN: YES Discussed during meeting: Care Gap(s): - HTN Health Maintenance Topics with due status: Overdue Topic Date Due DTAP,TDAP,TD 07/10/1970 HEPATITIS C SCREENING 1995 COLORECTAL CANCER SCREENING,SEE MODIFIER 07/10/2001 PROSTATE CANCER SCREENING DISCUSSION 07/10/2006 ABDOMINAL AORTIC ANEURYSM SCREENING TOPIC 07/10/2016 ADULT PREVNAR-13 07/10/2016 PCP's direction(s): - Possible Care Coordination - Schedule Follow up Chris Francistlaura Betancourt Psr 11/19/2017 3:23 PM Signed Pt is in bed E18-12, pt has been working with care advocate, will need ER follow up visit once release. Pt didn't want to talk advise that was understood. Allergies As of Date: 09/28/2017 Noted Allergy Reaction ALTASEPTIC 12/17/2016 16 - Unknown BRILINTA (TICAGRELOR) 08/09/2017 16 - Unknown CRESTOR (ROSUVASTATIN CALCIUM) 12/17/2016 17 - Myalgia HCTZ (AMILORIDE-HYDROCHLOROTHIAZI*12/17/2016 7 - Swelling MOXIFLOXACIN 7 - Swelling OTHER OMEGA-3S 07/06/2017 16 - Unknown Comments: brelinta RAMIPRIL 12/17/2016 7 - Swelling Comments: Other reaction(s): Facial swelling SIMVASTATIN 12/17/2016 17 - Myalgia Comments: Other reaction(s): Facial swelling VOLTAREN (DICLOFENAC SODIUM) 12/17/2016 16 - Unknown Date Reviewed: 09/22/2017 Reviewed by: Ratna Chavez - Fully Assessed Reason for Visit: PHMA/Care Gap Outreach [[id number]] Prescriptions as of 09/28/2017 Sig: TAMSULOSIN 0.4 MG CAPSULE Take 0.4 mg by mouth once roddy* ONDANSETRON HCL 4 MG TABLET Take 4 mg by mouth every 6 ho* OXYCODONE-ACETAMINOPHEN 10 MG* Take 1 tablet by mouth every * B COMPLEX ORAL Take 1 tablet by mouth once d* ASPIRIN 81 MG TABLET,DELAYED * Take 81 mg by mouth once dominik* CYCLOBENZAPRINE 10 MG TABLET Take 1 tablet by mouth at bed* AMLODIPINE 10 MG TABLET Take 10 mg by mouth once dominik* LORATADINE 10 MG CAPSULE Take 1 capsule every day by o* PRAVASTATIN 40 MG TABLET Take 40 mg by mouth daily at * GABAPENTIN 300 MG CAPSULE Take 2 capsules by mouth dominik* METOPROLOL SUCCINATE ER 100 M* Take 1 tablet by mouth once d* QUETIAPINE 200 MG TABLET Take 2 tablets by mouth daily* COMPOUNDED PRESCRIPTION One Piece Ostomy Pouch Item T* COMPOUNDED PRESCRIPTION Paste: Convatec Stomahesive * MULTIVITAMIN AND MINERALS ORAL Take 1 capsule by mouth once * ALBUTEROL SULFATE HFA 90 MCG/* Inhale 2 Puffs as instructed * FLUTICASONE 50 MCG/ACTUATION * Use 1 [place] in the nose once * NITROGLYCERIN 0.4 MG SUBLINGU* PLACE ONE(1) TABLET UNDER TON* LOSARTAN 100 MG TABLET Take 100 mg by mouth once roddy* FUROSEMIDE 20 MG TABLET Take 40 mg by mouth once dominik* Problem List As Of Date 09/28/2017 Noted Resolved 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 Chest pain [R07.9] INVALID FOR* Priority: A More... Hypertensive crisis [I16.9] INVALID FOR* Priority: B More... Healthcare maintenance [Z00.00] INVALID FOR* Priority: M More... Malnutrition of mild degree (HCC) [E44.1] INVALID FOR* Priority: L More... CHF (congestive heart failure) (HCC) [I50.9] INVALID FOR* Diverticulitis of sigmoid colon [K57.32] INVALID FOR* Class: Recurrent More... Chronic systolic congestive heart failure (HCC)*INVALID FOR* Priority: J More... CAD (coronary artery disease) [I25.10] INVALID FOR* Priority: K More... Hypertensive heart disease with congestive hear*INVALID FOR* Priority: K Hypocalcemia [E83.51] INVALID FOR*06/19/2017 Hypernatremia [E87.0] INVALID FOR*06/19/2017 Hypokalemia [E87.6] INVALID FOR*06/19/2017 Parastomal hernia without obstruction or gangre*INVALID FOR* Abdominal aortic aneurysm without rupture (HCC)*INVALID FOR* Renal cysts, acquired, bilateral [N28.1] INVALID FOR* Arthritis [M19.90] INVALID FOR* Anxiety disorder [F41.9] INVALID FOR* Essential hypertension [I10] INVALID FOR* Nicotine use disorder, F17.2 [F17.200] INVALID FOR* Melena [K92.1] INVALID FOR* Fall [W19.XXXA] INVALID FOR* Abdominal pain [R10.9] INVALID FOR* Peristomal hernia [K46.9] INVALID FOR* Encounter Status:Closed by FREDERIC DAVALOS on 11/19/17 CNDS Observed: 09/24/2017 Status: COMPLETED Source: [place] 6:49 PM [facility] REPOSITORY HNO ID: [id number] Author: Maranda Omer Service: Hospital Medicine Author Type: Physician Type: Discharge Summaries Filed: 09/24/2017 6:49 PM Note Text: DISCHARGE SUMMARY PATIENT NAME: Maxx Knott Admission Information Admission Information ADMIT DATE: 09/22/2017 DISCHARGE DATE: 09/24/2017' MY DOCTORS AND MEDICAL TEAM: My Main Hospital Doctor: Maranda Omer Primary Care Provider: Bijan Perez MD My Medical Team Members: Treatment Team: Attending Provider: Maranda Omer Consulting: Ratna Bhatt Primary Service: Tom Shultz MY CONDITION AT DISCHARGE: REASON I WAS IN THE HOSPITAL: Chest pain SUMMARY OF WHAT HAPPENED WHILE I WAS IN THE HOSPITAL: Patient was admitted for Chest pain. Pt was admitted with chest pain. He has had recurrent admissions for chest pain including a recent cath with stent. He was seen by cardiology and a repeat cath was recommended. He has also had multiple admits at [facility] for chronic stoma herniation. He was seen by pain management and they recommended no narcotics. Overnight he did take his own NTG. He was then restarted on IV morphine per pain management. Nursing noted the patient and his belongings were gone. A stat code rei was called and security could not find the patient. The patient was deemed to have eloped with his IV present. Security was contacted to have the police sent to his house to have the IV removed. OTHER PROBLEMS/DIAGNOSIS: Principal Problem: Chest pain Active Problems: Colostomy prolapse (HCC) Chronic systolic congestive heart failure (HCC) CAD (coronary artery disease) Hypertensive heart disease with congestive heart failure (HCC) Essential hypertension Resolved Problems: * No resolved hospital problems. * OPERATIONS PERFORMED WHILE IN THE HOSPITAL: None IMPORTANT TEST/PROCEDURES: No procedures performed TEST RESULTS NOT AVAILABLE AT THIS TIME: No pending results Discharge Disposition AMA Activity When You Leave the Hospital Activity Resume pre-hospital activity Diet Instructions Diet Resume pre-hospital diet Follow Up Appointments Follow-Up Appointment With: PCP When: In 1 week Additional Provider to Provider Information: Principal Problem: Chest pain POA: Yes Assessment AND Plan: Active Problems: Colostomy prolapse (HCC) POA: Yes Assessment AND Plan: Chronic systolic congestive heart failure (HCC) POA: Yes Assessment AND Plan: CAD (coronary artery disease) POA: Yes Assessment AND Plan: Hypertensive heart disease with congestive heart failure (HCC) POA: Yes Assessment AND Plan: Essential hypertension POA: Yes Assessment AND Plan: Resolved Problems: * No resolved hospital problems. * FOLLOW-UP APPOINTMENTS ALREADY SCHEDULED WITH A [facility] PROVIDER: Future Appointments Date Time Provider Department Center 11/28/2017 4:00 PM Ro Curiele Chrissy Keyes BLDG DISCHARGE MEDICATION: Current Discharge Medication List CONTINUE these medications which have NOT CHANGED tamsulosin ER (FLOMAX) 0.4 mg Take 0.4 mg by mouth once daily as needed. ondansetron (ZOFRAN) 4 mg Take 4 mg by mouth every 6 hours as needed. oxyCODONE-acetaminophen (PERCOCET 10) 1 tablet Take 1 tablet by mouth every 6 hours as needed for Pain. Has had both 5 and 10 mg strength prescribed over past year, says he currently has 10 mg strength at home vitamin B complex (B COMPLEX ORAL) 1 tablet Take 1 tablet by mouth once daily. aspirin, enteric coated (ASPIRIN, ENTERIC COATED) 81 mg Take 81 mg by mouth once daily. cyclobenzaprine (FLEXERIL) 10 mg Take 10 mg by mouth at bedtime as needed for Muscle Spasm. Associated Diagnoses:Chronic low back pain, unspecified back pain laterality, with sciatica presence unspecified amLODIPine (NORVASC) 10 mg Take 10 mg by mouth once daily. loratadine 10 mg cap Take 1 capsule every day by oral route as needed pravastatin (PRAVACHOL) 40 mg Take 40 mg by mouth daily at bedtime. gabapentin (NEURONTIN) 600 mg Take 600 mg by mouth daily at bedtime. Qty: 90 capsule Refills: 0 Associated Diagnoses:Chronic low back pain, unspecified back pain laterality, with sciatica presence unspecified metoprolol succinate ER (TOPROL XL) 100 mg Take 100 mg by mouth once daily. Qty: 90 tablet Refills: 4 QUEtiapine (SEROquel) 400 mg Take 400 mg by mouth daily at bedtime. Qty: 60 tablet Refills: 0 MULTIVIT WITH IRON,MINERALS (MULTIVITAMIN AND MINERALS ORAL) 1 capsule Take 1 capsule by mouth once daily. albuterol HFA (PROVENTIL HFA, VENTOLIN HFA) 2 Puffs Inhale 2 Puffs as instructed every 4 hours as needed for Wheezing/Shortness of Breath. fluticasone (FLONASE) 1 [place] Use 1 [place] in the nose once daily as needed. nitroglycerin sublingual (NITROSTAT) 0.[address] ONE(1) TABLET UNDER TONGUE NEEDED FOR CHEST PAIN. IF NO PAIN RELIEF CALL 911 Qty: 25 tablet Refills: 0 losartan (COZAAR) 100 mg Take 100 mg by mouth once daily. furosemide (LASIX) 40 mg Take 40 mg by mouth once daily as needed. !! COMPOUNDED PRESCRIPTION One Piece Ostomy Pouch Item Type: Coloplast Sensura One Piece Non-Sterile with Window 3-05/01'' ?5/Box ICD 10: Prolapsed Stoma K94.09 Qty: 1 Box Refills: 0 !! COMPOUNDED PRESCRIPTION Paste: Convatec Stomahesive 1 tube ICD 10: Prolapsed Stoma K 94.09 Qty: 1 Tube Refills: 0 !! - Potential duplicate medications found. Please discuss with provider. TIME OF CARE: Discharge Management: I personally spent greater than 30 minutes involved in the discharge management of this patient. SIGNATURE: Maranda Omer DO PAGER/CONTACT #: DATE: September 24, 2017 TIME: 6:49 PM NURSING PROG Observed: 09/24/2017 Status: COMPLETED Source: [place] 5:49 PM [facility] REPOSITORY HNO ID: [id number] Author: Poncho KingRn) MITCHELL Fernando Service: (none) Author Type: Registered Nurse Type: Nursing Progress Note Filed: 09/24/2017 5:53 PM Note Text: Patient not in room or bathroom at this time; belongings not in room and telemetry on bed. Called stat line to page code brown. Stat line stated they would call security. IV was never removed by this RN. Dr Omer made aware of situation. NURSING PROG Observed: 09/24/2017 Status: COMPLETED Source: [place] 11:27 AM [facility] REPOSITORY HNO ID: [id number] Author: Poncho KingRn) MITCHELL Fernando Service: (none) Author Type: Registered Nurse Type: Nursing Progress Note Filed: 09/24/2017 11:33 AM Note Text: Dr Costa at bedside at this time. Patient expressed that he took 3 of his own nitro yesterday around 11am due to chest pain. Asked patients if he had any more of his own medications with him and he said no. Educated patient that he cannot take any of his own medications and that we would have to take his nitro and can return them to him when he is discharged. Patient verbalizes understanding at this time. Patients nitro locked up in 2116 med box outside of patients room. PROGRESS Observed: 09/24/2017 Status: COMPLETED Source: [place] 8:40 AM CLINIC OTHER CAMPUS REPOSITORY HNO ID: [id number] Author: Hawa Costa Service: Pain Management Author Type: Physician Type: Progress Notes Filed: 09/24/2017 10:51 AM Note Text: Maxx Knott [id number] 1950 PAIN MANAGEMENT TEAM PAIN DIAGNOSIS: CBP, Chronic hernia/stoma prolapse of colostomy; chronic chest pain Pain Score/Description: c/o both chest and abdominal pain- constant ache, pain scores 7-8. Pt states he took 3 of his own NTG (in his pocket) yest AM with some relief- he didn't tell RN/staff INTERVAL HPI: Stable overnight; per RN notes pt falling asleep during conversation last PM and requesting prn pain meds 09/23 Cards eval- plans for cardiac cath 09/25 SUBJECTIVE HPI: This is a 67 year old male with CAD (s/p CABG x3 ten yrs ago, last PCI 01/2017 GREY to prox LAD), ischemic systolic CHF (LVEF 47%), CBP, diverticulitis complicated by a perforation (July 2016), s/p Chad's with transverse loop colostomy complicated by a stoma prolapse with a large parastomal hernia with chronic pain who presents 09/22 with chest pain at rest. He described constant retrosternal tightness. He was just hospitalized 09/20 for a day at [facility] for his chronic hernia/stoma prolapse- no acute surgical intervention was needed. He also was hospitalized 09/09-09/11 for chest pain; he had unremarkable lexiscan about a month ago. Pt has frequent hospitalizations and ER visits. Pt goes to the [facility] for his medical care. His chronic pain issues include his back and chronic chest wall pain. 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 Review of [place] Automated RX Reporting System shows multiple, frequent small quantity opiate Rxs for either Oxycodone, Percocet or [place]. Most recent ones include: Dispensed Written Strength Form Quantity Refills Days Supply Provider Pharmacy OXYCODONE HCL 5 MG TABLET 09/20/2017 09/20/2017 12 0 3 VICKIE ISBELL [facility] HYDROCODONE-ACETAMIN 5-325 MG 09/16/2017 09/16/2017 4 0 1 DO GARCIA REMUS A [facility] OXYCODONE HCL 5 MG TABLET 08/17/2017 08/17/2017 9 0 3 YUE [facility]UT[facility] OXYCODONE-ACETAMINOPHEN 5-325 08/06/2017 08/05/2017 15 0 5 DO LEIVA DAVID C [facility] MEDICATIONS Current Facility-Administered Medications: morphine 1 mg injection 1 mg INTRAVENOUS q 4 H PRN Hawa K Scantling morphine 2 mg injection 2 mg INTRAVENOUS q 4 H PRN Hawa K Scantling NaCl 0.9% iv infusion 5-30 mL/hr INTRAVENOUS CONTINUOUS Yassine Lockett isosorbide mononitrate ER 30 mg tab(s) (IMDUR) 30 mg ORAL DAILY Yassine Landaverde Lockett 30 mg at 09/24/17 0847 acetaminophen 325-650 mg tab(s) (TYLENOL) 325-650 mg ORAL q 4 H PRN Hawa K Scantling 650 mg at 09/23/176 losartan 100 mg tab(s) (COZAAR) 100 mg ORAL DAILY Ratna Colonon 100 mg at 09/24/17 0847 furosemide 40 mg tab(s) (LASIX) 40 mg ORAL DAILY Ratna Colonon 40 mg at 09/24/17 0846 albuterol HFA 90 mcg/actuation 2 Puff (PROVENTIL HFA, VENTOLIN HFA) 2 Puff INHALATION q 4 H PRN Ratna Chavez nitroglycerin sublingual 0.4 mg tab(s) (NITROQUICK) 0.4 mg SUBLINGUAL PRN Ratna Chavez gabapentin 600 mg cap(s) (NEURONTIN) 600 mg ORAL AT BEDTIME Ratna Chavez 600 mg at 09/23/17 2136 metoprolol succinate ER 100 mg tab(s) (TOPROL XL) 100 mg ORAL DAILY Ratna Chavez 100 mg at 09/24/17846 QUEtiapine 400 mg tab(s) (SEROquel) 400 mg ORAL AT BEDTIME Ratna Chavez 400 mg at 09/23/172135 amLODIPine 10 mg tab(s) (NORVASC) 10 mg ORAL DAILY Ratna Chavez 10 mg at 09/24/17845 cyclobenzaprine 10 mg tab(s) (FLEXERIL) 10 mg ORAL HS PRN Ratna Chavez 10 mg at 09/23/172135 aspirin, enteric coated 81 mg tab(s) (ASPIRIN, ENTERIC COATED) 81 mg ORAL DAILY Ratna Chavez 81 mg at 09/24/17845 tamsulosin ER 0.4 mg cap(s) (FLOMAX) 0.4 mg ORAL DAILY Ratna Chavez 0.4 mg at 09/24/17846 ondansetron 4 mg tab(s) (ZOFRAN) 4 mg ORAL q 6 H PRN Ratna Chavez enoxaparin 40 mg injection (LOVENOX) 40 mg SUBCUTANEOUS DAILY Ratna Chavez 40 mg at 09/24/1747 pravastatin 40 mg tab(s) (PRAVACHOL) 40 mg ORAL AT BEDTIME Ratna Nelly Ahn 40 mg at 09/23/172135 Prescriptions Prior to Admission: tamsulosin ER (FLOMAX) 0.4 mg cp24 Take 0.4 mg by mouth once daily as needed. Disp: Rfl: ondansetron (ZOFRAN) 4 mg tablet Take 4 mg by mouth every 6 hours as needed. Disp: Rfl: oxyCODONE-acetaminophen (PERCOCET) 10-325 mg tablet Take 1 tablet by mouth every 6 hours as needed for Pain. Has had both 5 and 10 mg strength prescribed over past year, says he currently has 10 mg strength at home Disp: Rfl: vitamin B complex (B COMPLEX ORAL) Take 1 tablet by mouth once daily. Disp: Rfl: 09/19/2017 at Unknown time aspirin, enteric coated (ASPIRIN, ENTERIC COATED) 81 mg EC tablet Take 81 mg by mouth once daily. Disp: Rfl: 09/19/2017 at Unknown time cyclobenzaprine (FLEXERIL) 10 mg tablet Take 1 tablet by mouth at bedtime as needed for Muscle Spasm. Disp: Rfl: 09/19/2017 at Unknown time amLODIPine (NORVASC) 10 mg tablet Take 10 mg by mouth once daily. Disp: Rfl: 09/19/2017 at Unknown time loratadine 10 mg cap Take 1 capsule every day by oral route as needed Disp: Rfl: Unknown at Unknown time pravastatin (PRAVACHOL) 40 mg tablet Take 40 mg by mouth daily at bedtime. Disp: Rfl: 09/19/2017 at Unknown time gabapentin (NEURONTIN) 300 mg capsule Take 2 capsules by mouth daily at bedtime for 90 days. Disp: 90 capsule Rfl: 0 09/19/2017 at Unknown time metoprolol succinate ER (TOPROL XL) 100 mg Tb24 Take 1 tablet by mouth once daily. Disp: 90 tablet Rfl: 4 09/19/2017 at Unknown time QUEtiapine (SEROQUEL) 200 mg tablet Take 2 tablets by mouth daily at bedtime. Disp: 60 tablet Rfl: 0 09/19/2017 at Unknown time MULTIVIT WITH IRON,MINERALS (MULTIVITAMIN AND MINERALS ORAL) Take 1 capsule by mouth once daily. Disp: Rfl: 09/19/2017 at Unknown time albuterol HFA (PROVENTIL HFA, VENTOLIN HFA) 90 mcg/actuation inhaler Inhale 2 Puffs as instructed every 4 hours as needed for Wheezing/Shortness of Breath. Disp: Rfl: Unknown at Unknown time fluticasone (FLONASE) 50 mcg/actuation nasal spray Use 1 [place] in the nose once daily as needed. Disp: Rfl: Unknown at Unknown time nitroglycerin sublingual (NITROSTAT) 0.[address] ONE(1) TABLET UNDER TONGUE NEEDED FOR CHEST PAIN. IF NO PAIN RELIEF CALL 911 Disp: 25 tablet Rfl: 0 Unknown at Unknown time losartan (COZAAR) 100 mg tablet Take 100 mg by mouth once daily. Disp: Rfl: 09/19/2017 at Unknown time furosemide (LASIX) 20 mg tablet Take 40 mg by mouth once daily as needed. Disp: Rfl: Unknown at Unknown time COMPOUNDED PRESCRIPTION One Piece Ostomy Pouch Item Type: Coloplast Sensura One Piece Non-Sterile with Window 3/8-4 1/2'' ?5/BoxICD 10: Prolapsed Stoma K94.09 Disp: 1 Box Rfl: 0 Unknown at Unknown time COMPOUNDED PRESCRIPTION Paste: Convatec Stomahesive 1 tubeICD 10: Prolapsed Stoma K 94.09 Disp: 1 Tube Rfl: 0 Unknown at Unknown time PAST MEDICAL HISTORY PAST MEDICAL HISTORY Diagnosis Date - AAA (abdominal aortic aneurysm) without rupture ([facility]) 05/13/[address] a/p - CAD (coronary artery disease) 2005 CAD s/p CABG x3 ([id number]-ivluop, YLJ-RRK-stoauh, [id number]-nulerszc) (2006 at [facility]) - COPD (chronic obstructive pulmonary disease) ([facility]) - Current every day smoker PT SMOKES A PIPE - Diverticulitis Perforated Diverticulitis - Diverticulitis of sigmoid colon 05/15/2017 Added automatically from request for surgery [id number] - Hx of CABG - Pacemaker 02/16/2017 s/p PPM () 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 - Peritonitis ([facility]) PAST SURGICAL HISTORY PAST SURGICAL HISTORY Procedure Laterality Date - APPENDECTOMY HX - COLOSTOMY 07/2016 Diverting Loop Colostomy of the Transverse Colon - HEART SURGERY HX triple bypass 10 yrs ago - PPM IMPLANT - STENT - CORONARY ALLERGIES Allergen Reactions - Altaseptic Unknown - Brilinta [Ticagrelo* Unknown - Crestor [Rosuvastat* Myalgia - Hctz [Amiloride-Hyd* Swelling - Moxifloxacin Swelling - Other [place]-3s Unknown brelinta - Ramipril Swelling Other reaction(s): Facial swelling - Simvastatin Myalgia Other reaction(s): Facial swelling - Voltaren [Diclofena* Unknown FAMILY HISTORY Problem Relation Age of Onset - Coronary Artery Disease Father - Hyperlipidemia Father Social History Substance Use Topics - Smoking status: Current Every Day Smoker Packs/day: 0.50 Years: 35.00 Types: Pipe, Cigarettes - Smokeless tobacco: Never Used Comment: Quit cigarettes 11-16-16 now smoking 4 pipes as of 04-18-17 - Alcohol use No Social History Narrative None on file REVIEW OF SYSTEMS: all of the following reviewed and negative except as noted below: GENERAL: no fever, chills, sweats, + weight loss (intentional 70# in last year due to change diet), +fatigue, generalized weakness HEENT: + headache, no vision changes, eye discomfort, hearing change, ear discomfort, sinus pain, nasal discharge or congestion, oral lesions, soreness, dental problem NECK: no adenopathy, discomfort, change in ROM CHEST: See HPI HEART: no chest pain, palpitations, syncope ABDOMEN: no nausea, vomiting, see HPI : no dysuria, urgency, frequency, history of stones, incontinence NEURO: no confusion or alteration in consciousness, slurred speech, seizure, focal weakness EXTREMITIES: no new pain, edema, change in ROM HEME: no new adenopathy, bruises, petechiae PSYCH: no depression, anxiety, agitation OBJECTIVE PHYSICAL EXAMINATION: see below for new or abnormal findings BP 134/69 Pulse 61 Temp (Src) 97.5 (Oral) Resp 16 Ht 5' 8 (1.73m) Wt 194 lb (88.0kg) SpO2 98% BMI 29.50 kg/(m2). GENERAL: well nourished and developed; no acute distress; alert and oriented x 3; intact judgement and insight HEENT: no evidence of trauma; cranial nerves intact; eyes clear EOMI; no hearing deficits apparent; nasal passages unremarkable; throat and mucous membranes clear NECK: supple without lymphadenopathy; no JVD; no thyromegaly CHEST: clear bilaterally to auscultation; normal chest movement; no rales or rhonchi HEART: regular rate and rhythm, normal S1 and S2, no murmurs, clicks, rubs, or gallops ABDOMEN: soft; nondistended; bowel sounds present; no hepatomegaly; no splenomegaly; + colostomy with stool; large parastomal hernia, non tender EXTREMITIES: no evidence of clubbing; no cyanosis; no deformity; no joint effusion; no edema NEURO: cranial nerves intact; no focal deficits; no confusion; no tremor; sensorium normal SKIN: no rash; no skin breakdown; no decubitus lesions HEME: no bruising; no adenopathy PSYCH: no evidence of depression; no anxiety; no agitation; no apparent hallucinations DATA: Diagnostic tests reviewed: Most recent labs and imaging results. CBC: No results for input(s): WBC, RBC, HB, HCT, PLT, MCV, MCH, MPV, RDW in the last 24 hours. CMP: No results for input(s): NA, K, CHLOR, CO2, BUN, CREAT, GLUC, TPROT, CA, MG, ALBUMIN, TBILI, ALKPHOS, ALT, AST, ANION in the last 24 hours. Heme: No results for input(s): RETICP, ABSRETIC, LD, WINTER, FE, TIBC, TRANSFERSAT in the last 24 hours. TOX SCREEN No results found for: UAMPP, UBARPP, BENZO, COCAINEMETUR, UOPIPP, UPCPPP, UALCH3, UTHC ACTIVE PROBLEM LIST Colostomy Prolapse (Hcc) Chest Pain Hypertensive Crisis Healthcare Maintenance Malnutrition of Mild Degree (Hcc) Chf (Congestive Heart Failure) (Hcc) Diverticulitis of Sigmoid Colon Chronic Systolic Congestive Heart Failure (Hcc) Cad (Coronary Artery Disease) Hypertensive Heart Disease With Congestive Heart Failure (Hcc) Parastomal Hernia Without Obstruction Or Gangrene Abdominal Aortic Aneurysm Without Rupture (Hcc) Renal Cysts, Acquired, Bilateral Arthritis Anxiety Disorder Essential Hypertension Nicotine use disorder, F17.2 Melena Fall Abdominal Pain Peristomal Hernia Diet DIET HEART HEALTHY DIET NPO LAST BOWEL MOVEMENT Prior to Admission Opiate Status Episodic Outpatient Pain Management: No. Rx at D/C: No Rx on chart: No OARRS: frequent small quantity opiate Rxs- last ones 09/20 Oxycodone 5mg #12, 09/16 [place] #4, 08/17 Oxycodone #9 Pain Regimen/Notes (Opiate use last 24 hrs): APAP 650mg x 2 Percocet 5/325 2 x 1- dcd 09/23 Flexeril 10mg po qhs x 1 Neurontin 600mg po qhs PLAN: Cardiology plans for cath 09/24 noted Will allow Morphine 1-2mg IV q4h prn for now Discussed with RN in the room- pt took own NTG yesterday; to give Rx to RN and tell RN when he's having chest pain Pt to f/u [facility] for chronic hernia/stoma prolapse of loop transverse colostomy- pt stands surgery planned Nov Do not recommend chronic opiates- if pt wishes to establish outpatient PM, I told her to consider [facility] or [facility] PM Continue Flexeril and Neurontin as ordered No Rx at discharge Hawa Costa MD PROGRESS Observed: 09/24/2017 Status: COMPLETED Source: [place] 7:46 AM CLINIC OTHER CAMPUS REPOSITORY HNO ID: [id number] Author: Maranda Omer Service: Hospital Medicine Author Type: Physician Type: Progress Notes Filed: 09/24/2017 7:50 AM Note Text: DEPARTMENT OF HOSPITAL MEDICINE PROGRESS NOTE SERVICE DATE: 09/24/2017 SERVICE TIME: 7:46 AM Hospital Medicine/Primary Attending: Maranda Omer DO NIGHT AND WEEKEND COVERAGE: After 7pm please page [phone] CHIEF COMPLAINT: So So SUBJECTIVE: Pt seen and examined. Pt still with chest pain overnight. Was begging nursing yesterday afternoon to have pain meds. States that he does well at home (I doubt). States that [facility] is coming out next week. Per [facility] patient outreach has been unable to contact him. Pt shortness of breath, nausea, vomiting, or diarrhea. OBJECTIVE: PHYSICAL EXAM: BP 135/56 Pulse 65 Temp (Src) 97.9 (Oral) Resp 16 Ht 5' 8 (1.73m) Wt 194 lb (88.0kg) SpO2 98% BMI 29.50 kg/(m2). General - AANDOx3, NAD, Calm CV - RRR S1 S2, No M/R/G RESP - CTA B/L No wheezes, ronchi, rales ABD - soft, NT, ND +BS, +Stoma hernia, + brown stool EXT - no gross joint deformity, no clubbing, cyanosis, edema NEURO - CN II-XII grossly intact, no focal deficits MEDICATIONS: Current hospital medications: NaCl 0.9% iv infusion 5-30 mL/hr INTRAVENOUS CONTINUOUS isosorbide mononitrate ER 30 mg tab(s) (IMDUR) 30 mg ORAL DAILY acetaminophen 325-650 mg tab(s) (TYLENOL) 325-650 mg ORAL q 4 H PRN losartan 100 mg tab(s) (COZAAR) 100 mg ORAL DAILY furosemide 40 mg tab(s) (LASIX) 40 mg ORAL DAILY albuterol HFA 90 mcg/actuation 2 Puff (PROVENTIL HFA, VENTOLIN HFA) 2 Puff INHALATION q 4 H PRN nitroglycerin sublingual 0.4 mg tab(s) (NITROQUICK) 0.4 mg SUBLINGUAL PRN gabapentin 600 mg cap(s) (NEURONTIN) 600 mg ORAL AT BEDTIME metoprolol succinate ER 100 mg tab(s) (TOPROL XL) 100 mg ORAL DAILY QUEtiapine 400 mg tab(s) (SEROquel) 400 mg ORAL AT BEDTIME amLODIPine 10 mg tab(s) (NORVASC) 10 mg ORAL DAILY cyclobenzaprine 10 mg tab(s) (FLEXERIL) 10 mg ORAL HS PRN aspirin, enteric coated 81 mg tab(s) (ASPIRIN, ENTERIC COATED) 81 mg ORAL DAILY tamsulosin ER 0.4 mg cap(s) (FLOMAX) 0.4 mg ORAL DAILY ondansetron 4 mg tab(s) (ZOFRAN) 4 mg ORAL q 6 H PRN enoxaparin 40 mg injection (LOVENOX) 40 mg SUBCUTANEOUS DAILY pravastatin 40 mg tab(s) (PRAVACHOL) 40 mg ORAL AT BEDTIME DATA: Diagnostic tests reviewed for today's visit: CBC: No results for input(s): WBC, RBC, HB, HCT, PLT, MCV, MCH, MPV, RDW in the last 24 hours. Coags: No results for input(s): INR, APTT in the last 24 hours. Invalid input(s): PT BMP: No results for input(s): NA, K, CHLOR, CO2, BUN, CREAT, GLUC in the last 24 hours. CMP: No results for input(s): NA, K, CHLOR, CO2, BUN, CREAT, GLUC, TPROT, CA, MG, ALBUMIN, TBILI, ALKPHOS, ALT, AST, ANION in the last 24 hours. Cardiac Enzymes: No results for input(s): CK, MB, CKMB, TROPT in the last 24 hours. Liver Function, Amylase, Lipase: No results for input(s): TPROT, ALB, ALT, AST, ALKPHOS, TBILI, AMYLASE, LIPASE, LACTATE in the last 24 hours. MG/PHOS: No results for input(s): MG, P in the last 24 hours. Renal Panel: No results for input(s): ALBUMIN, CREAT, BUN, GLUC, CA, P, CHLOR, K, CO2, NA in the last 24 hours. Heme: No results for input(s): RETICP, ABSRETIC, LD, WINTER, FE, TIBC, TRANSFERSAT in the last 24 hours. No results found for: UALBCR Assessment/Plan 1. Chest pain - recurrent. Spoke with Dr. Lockett. Will plan to cath on Sunday. 2. Chronic stoma herniation/collapse - will have ostomy nurse see patient. No further admits to [facility] or hospitals unless surgical issue 3. CHronic systolic CHF - compensated 4. CAD - cath on Sunday 5. HTN - stable 6. Chronic abdominal pain - no narcotics per pain management. APPRECIATE PAIN MANAGEMENT! 7. I question if the patient has the ability to truly care for himself at home. He has had frequent re admits between [facility] and [facility]. Will have PT OT eval patient VTE Prophylaxis: Lovenox 40mg Sub Q Daily Disposition: Home vs SNF Plan of care discussed with: Patient and RN SIGNATURE: Maranda Omer DO PATIENT NAME: Maxx Knott DATE: September 24, 2017 TIME: 7:46 AM PAGER/CONTACT #: [phone] NURSING PROG Observed: 09/24/2017 Status: COMPLETED Source: [place] 12:05 AM [facility] REPOSITORY HNO ID: [id number] Author: Stephanie (Rn) MITCHELL Barney Service: Nursing Author Type: Registered Nurse Type: Nursing Progress Note Filed: 09/24/2017 6:35 AM Note Text: Pt sitting on side of bed, fully dressed. Pt falling asleep during conversation, requesting prn pain meds. Explained tylenol dose frequency and encouraged pt to return to bed. Bed alarm on at this time. CONSULT Observed: 09/23/2017 Status: COMPLETED Source: [place] 8:25 AM [facility] REPOSITORY HNO ID: [id number] Author: Hawa Costa Service: Pain Management Author Type: Physician Type: Consults Filed: 09/23/2017 10:50 AM Note Text: Maxx Knott [id number] 1950 PAIN MANAGEMENT TEAM PAIN DIAGNOSIS: CBP, Chronic hernia/stoma prolapse of colostomy; chronic chest pain Pain Score/Description: achy, itchy, stabbing chest pain- also c/o chronic back pain. Usual pain score 8 INTERVAL HPI: SUBJECTIVE HPI: This is a 67 year old male with CAD (s/p CABG x3 ten yrs ago, last PCI 01/2017 GREY to prox LAD), ischemic systolic CHF (LVEF 47%), CBP, diverticulitis complicated by a perforation (July 2016), s/p Chad's with transverse loop colostomy complicated by a stoma prolapse with a large parastomal hernia with chronic pain who presents 09/22 with chest pain at rest. He described constant retrosternal tightness. He was just hospitalized 09/20 for a day at [facility] for his chronic hernia/stoma prolapse- no acute surgical intervention was needed. He also was hospitalized 09/09-09/11 for chest pain; he had unremarkable lexiscan about a month ago. Pt has frequent hospitalizations and ER visits. [facility]. His chronic pain issues include his back and chronic chest wall pain. 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 Review of [place] Automated RX Reporting System shows multiple, frequent small quantity opiate Rxs for either Oxycodone, Percocet or [place]. Most recent ones include: Dispensed Written Strength Form Quantity Refills Days Supply Provider Pharmacy OXYCODONE HCL 5 MG TABLET 09/20/2017 09/20/2017 12 0 3 VICKIE ISBELL [facility] HYDROCODONE-ACETAMIN 5-325 MG 09/16/2017 09/16/2017 4 0 1 DO GARCIA REMUS A [facility] OXYCODONE HCL 5 MG TABLET 08/17/2017 08/17/2017 9 0 3 YUE [facility] OXYCODONE-ACETAMINOPHEN 5-325 08/06/2017 08/05/2017 15 0 5 DO ABBIE, RATNA [facility] MEDICATIONS Current Facility-Administered Medications: morphine 4 mg injection 4 mg INTRAVENOUS q 3 H PRN Ratna Chavez 4 mg at 09/22/179 oxyCODONE-acetaminophen 5-325 mg 1-2 tablet (PERCOCET) 1-2 tablet ORAL q 6 H PRN Ratna Chavez 2 tablet at 09/22/17 2231 losartan 100 mg tab(s) (COZAAR) 100 mg ORAL DAILY Ratna Colonon 100 mg at 09/22/17 2221 furosemide 40 mg tab(s) (LASIX) 40 mg ORAL DAILY Ratna Chavez albuterol HFA 90 mcg/actuation 2 Puff (PROVENTIL HFA, VENTOLIN HFA) 2 Puff INHALATION q 4 H PRN Ratna Chavez nitroglycerin sublingual 0.4 mg tab(s) (NITROQUICK) 0.4 mg SUBLINGUAL PRN Ratna Chavez gabapentin 600 mg cap(s) (NEURONTIN) 600 mg ORAL AT BEDTIME Ratna Chavez 600 mg at 09/22/172220 metoprolol succinate ER 100 mg tab(s) (TOPROL XL) 100 mg ORAL DAILY Ratna Chavez QUEtiapine 400 mg tab(s) (SEROquel) 400 mg ORAL AT BEDTIME Ratna Chavez 400 mg at 09/22/172220 amLODIPine 10 mg tab(s) (NORVASC) 10 mg ORAL DAILY Ratna Chavez 10 mg at 09/22/172221 cyclobenzaprine 10 mg tab(s) (FLEXERIL) 10 mg ORAL HS PRN Ratna Chavez 10 mg at 09/22/172230 aspirin, enteric coated 81 mg tab(s) (ASPIRIN, ENTERIC COATED) 81 mg ORAL DAILY Ratna Chavez tamsulosin ER 0.4 mg cap(s) (FLOMAX) 0.4 mg ORAL DAILY Ratna Chavez ondansetron 4 mg tab(s) (ZOFRAN) 4 mg ORAL q 6 H PRN Ratna Chavez enoxaparin 40 mg injection (LOVENOX) 40 mg SUBCUTANEOUS DAILY Ratna Chavez 40 mg at 09/22/172220 pravastatin 40 mg tab(s) (PRAVACHOL) 40 mg ORAL AT BEDTIME Ratna Nelly Ahn 40 mg at 09/22/172220 Prescriptions Prior to Admission: tamsulosin ER (FLOMAX) 0.4 mg cp24 Take 0.4 mg by mouth once daily as needed. Disp: Rfl: ondansetron (ZOFRAN) 4 mg tablet Take 4 mg by mouth every 6 hours as needed. Disp: Rfl: oxyCODONE-acetaminophen (PERCOCET) 10-325 mg tablet Take 1 tablet by mouth every 6 hours as needed for Pain. Has had both 5 and 10 mg strength prescribed over past year, says he currently has 10 mg strength at home Disp: Rfl: vitamin B complex (B COMPLEX ORAL) Take 1 tablet by mouth once daily. Disp: Rfl: 09/19/2017 at Unknown time aspirin, enteric coated (ASPIRIN, ENTERIC COATED) 81 mg EC tablet Take 81 mg by mouth once daily. Disp: Rfl: 09/19/2017 at Unknown time cyclobenzaprine (FLEXERIL) 10 mg tablet Take 1 tablet by mouth at bedtime as needed for Muscle Spasm. Disp: Rfl: 09/19/2017 at Unknown time amLODIPine (NORVASC) 10 mg tablet Take 10 mg by mouth once daily. Disp: Rfl: 09/19/2017 at Unknown time loratadine 10 mg cap Take 1 capsule every day by oral route as needed Disp: Rfl: Unknown at Unknown time pravastatin (PRAVACHOL) 40 mg tablet Take 40 mg by mouth daily at bedtime. Disp: Rfl: 09/19/2017 at Unknown time gabapentin (NEURONTIN) 300 mg capsule Take 2 capsules by mouth daily at bedtime for 90 days. Disp: 90 capsule Rfl: 0 09/19/2017 at Unknown time metoprolol succinate ER (TOPROL XL) 100 mg Tb24 Take 1 tablet by mouth once daily. Disp: 90 tablet Rfl: 4 09/19/2017 at Unknown time QUEtiapine (SEROQUEL) 200 mg tablet Take 2 tablets by mouth daily at bedtime. Disp: 60 tablet Rfl: 0 09/19/2017 at Unknown time MULTIVIT WITH IRON,MINERALS (MULTIVITAMIN AND MINERALS ORAL) Take 1 capsule by mouth once daily. Disp: Rfl: 09/19/2017 at Unknown time albuterol HFA (PROVENTIL HFA, VENTOLIN HFA) 90 mcg/actuation inhaler Inhale 2 Puffs as instructed every 4 hours as needed for Wheezing/Shortness of Breath. Disp: Rfl: Unknown at Unknown time fluticasone (FLONASE) 50 mcg/actuation nasal spray Use 1 [place] in the nose once daily as needed. Disp: Rfl: Unknown at Unknown time nitroglycerin sublingual (NITROSTAT) 0.[address] ONE(1) TABLET UNDER TONGUE NEEDED FOR CHEST PAIN. IF NO PAIN RELIEF CALL 911 Disp: 25 tablet Rfl: 0 Unknown at Unknown time losartan (COZAAR) 100 mg tablet Take 100 mg by mouth once daily. Disp: Rfl: 09/19/2017 at Unknown time furosemide (LASIX) 20 mg tablet Take 40 mg by mouth once daily as needed. Disp: Rfl: Unknown at Unknown time COMPOUNDED PRESCRIPTION One Piece Ostomy Pouch Item Type: Coloplast Sensura One Piece Non-Sterile with Window 07/05-4 1/2'' ?5/BoxICD 10: Prolapsed Stoma K94.09 Disp: 1 Box Rfl: 0 Unknown at Unknown time COMPOUNDED PRESCRIPTION Paste: Convatec Stomahesive 1 tubeICD 10: Prolapsed Stoma K 94.09 Disp: 1 Tube Rfl: 0 Unknown at Unknown time PAST MEDICAL HISTORY PAST MEDICAL HISTORY Diagnosis Date - AAA (abdominal aortic aneurysm) without rupture ([facility]) 05/13/[address] a/p - CAD (coronary artery disease) 2005 CAD s/p CABG x3 ([id number]-[id number]-uvsraf, YKB-NES-skxkvp, YMH-AF6-xibepgsk) (2006 at [facility]) - COPD (chronic obstructive pulmonary disease) ([facility]) - Current every day smoker PT SMOKES A PIPE - Diverticulitis Perforated Diverticulitis - Diverticulitis of sigmoid colon 05/15/2017 Added automatically from request for surgery [id number] - Hx of CABG - Pacemaker 02/16/2017 s/p PPM () 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 - Peritonitis ([facility]) PAST SURGICAL HISTORY PAST SURGICAL HISTORY Procedure Laterality Date - APPENDECTOMY HX - COLOSTOMY 07/2016 Diverting Loop Colostomy of the Transverse Colon - HEART SURGERY HX triple bypass 10 yrs ago - PPM IMPLANT - STENT - CORONARY ALLERGIES Allergen Reactions - Altaseptic Unknown - Brilinta [Ticagrelo* Unknown - Crestor [Rosuvastat* Myalgia - Hctz [Amiloride-Hyd* Swelling - Moxifloxacin Swelling - Other [place]-3s Unknown brelinta - Ramipril Swelling Other reaction(s): Facial swelling - Simvastatin Myalgia Other reaction(s): Facial swelling - Voltaren [Diclofena* Unknown FAMILY HISTORY Problem Relation Age of Onset - Coronary Artery Disease Father - Hyperlipidemia Father Social History Substance Use Topics - Smoking status: Current Every Day Smoker Packs/day: 0.50 Years: 35.00 Types: Pipe, Cigarettes - Smokeless tobacco: Never Used Comment: Quit cigarettes 11-16-16 now smoking 4 pipes as of 04-18-17 - Alcohol use No Social History Narrative None on file REVIEW OF SYSTEMS: all of the following reviewed and negative except as noted below: GENERAL: no fever, chills, sweats, + weight loss (intentional 70# in last year due to change diet), +fatigue, generalized weakness HEENT: + headache, no vision changes, eye discomfort, hearing change, ear discomfort, sinus pain, nasal discharge or congestion, oral lesions, soreness, dental problem NECK: no adenopathy, discomfort, change in ROM CHEST: See HPI HEART: no chest pain, palpitations, syncope ABDOMEN: no nausea, vomiting, see HPI : no dysuria, urgency, frequency, history of stones, incontinence NEURO: no confusion or alteration in consciousness, slurred speech, seizure, focal weakness EXTREMITIES: no new pain, edema, change in ROM HEME: no new adenopathy, bruises, petechiae PSYCH: no depression, anxiety, agitation OBJECTIVE PHYSICAL EXAMINATION: see below for new or abnormal findings BP 146/85 Pulse 59 Temp (Src) 97.3 (Oral) Resp 18 Ht 5' 8 (1.73m) Wt 194 lb (88.0kg) SpO2 97% BMI 29.50 kg/(m2). GENERAL: well nourished and developed; no acute distress; alert and oriented x 3; intact judgement and insight HEENT: no evidence of trauma; cranial nerves intact; eyes clear EOMI; no hearing deficits apparent; nasal passages unremarkable; throat and mucous membranes clear NECK: supple without lymphadenopathy; no JVD; no thyromegaly CHEST: clear bilaterally to auscultation; normal chest movement; no rales or rhonchi HEART: regular rate and rhythm, normal S1 and S2, no murmurs, clicks, rubs, or gallops ABDOMEN: soft; nondistended; bowel sounds present; no hepatomegaly; no splenomegaly; + colostomy with stool; large parastomal hernia, non tender EXTREMITIES: no evidence of clubbing; no cyanosis; no deformity; no joint effusion; no edema NEURO: cranial nerves intact; no focal deficits; no confusion; no tremor; sensorium normal SKIN: no rash; no skin breakdown; no decubitus lesions HEME: no bruising; no adenopathy PSYCH: no evidence of depression; no anxiety; no agitation; no apparent hallucinations DATA: Diagnostic tests reviewed: Most recent labs and imaging results. CBC: Recent Labs 09/23/17 015 WBC 8.02 RBC 4.00* HB 11.9* HCT 36.5* PLT 290 MCV 91.3 MCH 29.8 MPV 10.1 RDW 13.4 CMP: Recent Labs 09/23/17151 NA 141 K 3.6 CHLOR 107 CO2 29 BUN 17 CREAT 0.98 GLUC 104* CA 8.9 MG 1.9 ANION 9 Heme: No results for input(s): RETICP, ABSRETIC, LD, WINTER, FE, TIBC, TRANSFERSAT in the last 24 hours. TOX SCREEN No results found for: UAMPP, UBARPP, BENZO, COCAINEMETUR, UOPIPP, UPCPPP, UALCH3, UTHC ACTIVE PROBLEM LIST Colostomy Prolapse (Hcc) Chest Pain Hypertensive Crisis Healthcare Maintenance Malnutrition of Mild Degree (Hcc) Chf (Congestive Heart Failure) (Hcc) Diverticulitis of Sigmoid Colon Chronic Systolic Congestive Heart Failure (Hcc) Cad (Coronary Artery Disease) Hypertensive Heart Disease With Congestive Heart Failure (Hcc) Parastomal Hernia Without Obstruction Or Gangrene Abdominal Aortic Aneurysm Without Rupture (Hcc) Renal Cysts, Acquired, Bilateral Arthritis Anxiety Disorder Essential Hypertension Nicotine use disorder, F17.2 Melena Fall Abdominal Pain Peristomal Hernia Diet DIET NPO LAST BOWEL MOVEMENT Prior to Admission Opiate Status Episodic Outpatient Pain Management: No. Rx at D/C: No Rx on chart: No OARRS: frequent small quantity opiate Rxs- last ones 09/20 Oxycodone 5mg #12, 5 [place] #4, /20 Oxycodone #9 Pain Regimen/Notes (Opiate use last 24 hrs): Morphine 4mg x1 Percocet 5/325 2 x 2 Flexeril 10mg po qhs x 1 Neurontin 600mg po qhs PLAN: Await Cardiology input; per chart recent stress test negative Pt to f/u [facility] for chronic hernia/stoma prolapse of loop transverse colostomy- pt stands surgery planned Nov Do not recommend chronic opiates- if pt wishes to establish outpatient PM, I told her to consider Comprehensive PM or [facility] [place] PM Continue Flexeril and Neurontin as ordered No Rx at discharge Discontinue Morphine IV and Percocet Discussed with RN Thank you for this consult. Hawa Costa MD PROGRESS Observed: 09/23/2017 Status: COMPLETED Source: [place] 8:20 AM CLINIC OTHER CAMPUS REPOSITORY HNO ID: [id number] Author: Maranda Omer Service: Hospital Medicine Author Type: Physician Type: Progress Notes Filed: 09/23/2017 8:26 AM Note Text: DEPARTMENT OF HOSPITAL MEDICINE PROGRESS NOTE SERVICE DATE: 09/23/2017 SERVICE TIME: 8:20 AM Hospital Medicine/Primary Attending: Maranda Omer, DO NIGHT AND WEEKEND COVERAGE: After 7pm please page [phone] CHIEF COMPLAINT: Chest pain SUBJECTIVE: Pt seen and examined. Currently on CPAP. Still with some chest pain. Known to me from prior admission. NO sob, no nausea or vomiting. Has had readmit at [facility] main for his stoma (this is a chronic herniation) OBJECTIVE: PHYSICAL EXAM: BP 146/85 Pulse 59 Temp (Src) 97.3 (Oral) Resp 18 Ht 5' 8 (1.73m) Wt 194 lb (88.0kg) SpO2 97% BMI 29.50 kg/(m2). General - AANDOx3, NAD, Calm CV - RRR S1 S2, No M/R/G RESP - CTA B/L No wheezes, ronchi, rales ABD - soft, NT, ND +BS, +ostomy with chronic stoma herniation EXT - no gross joint deformity, no clubbing, cyanosis, edema NEURO - CN II-XII grossly intact, no focal deficits MEDICATIONS: Current hospital medications: morphine 4 mg injection 4 mg INTRAVENOUS q 3 H PRN oxyCODONE-acetaminophen 5-325 mg 1-2 tablet (PERCOCET) 1-2 tablet ORAL q 6 H PRN losartan 100 mg tab(s) (COZAAR) 100 mg ORAL DAILY furosemide 40 mg tab(s) (LASIX) 40 mg ORAL DAILY albuterol HFA 90 mcg/actuation 2 Puff (PROVENTIL HFA, VENTOLIN HFA) 2 Puff INHALATION q 4 H PRN nitroglycerin sublingual 0.4 mg tab(s) (NITROQUICK) 0.4 mg SUBLINGUAL PRN gabapentin 600 mg cap(s) (NEURONTIN) 600 mg ORAL AT BEDTIME metoprolol succinate ER 100 mg tab(s) (TOPROL XL) 100 mg ORAL DAILY QUEtiapine 400 mg tab(s) (SEROquel) 400 mg ORAL AT BEDTIME amLODIPine 10 mg tab(s) (NORVASC) 10 mg ORAL DAILY cyclobenzaprine 10 mg tab(s) (FLEXERIL) 10 mg ORAL HS PRN aspirin, enteric coated 81 mg tab(s) (ASPIRIN, ENTERIC COATED) 81 mg ORAL DAILY tamsulosin ER 0.4 mg cap(s) (FLOMAX) 0.4 mg ORAL DAILY ondansetron 4 mg tab(s) (ZOFRAN) 4 mg ORAL q 6 H PRN enoxaparin 40 mg injection (LOVENOX) 40 mg SUBCUTANEOUS DAILY pravastatin 40 mg tab(s) (PRAVACHOL) 40 mg ORAL AT BEDTIME DATA: Diagnostic tests reviewed for today's visit: CBC: Recent Labs 09/23/17151 WBC 8.02 RBC 4.00* HB 11.9* HCT 36.5* PLT 290 MCV 91.3 MCH 29.8 MPV 10.1 RDW 13.4 Coags: No results for input(s): INR, APTT in the last 24 hours. Invalid input(s): PT BMP: Recent Labs 09/23/17151 NA 141 K 3.6 CHLOR 107 CO2 29 BUN 17 CREAT 0.98 GLUC 104* CMP: Recent Labs 09/23/17151 NA 141 K 3.6 CHLOR 107 CO2 29 BUN 17 CREAT 0.98 GLUC 104* CA 8.9 MG 1.9 ANION 9 Cardiac Enzymes: No results for input(s): CK, MB, CKMB, TROPT in the last 24 hours. Liver Function, Amylase, Lipase: No results for input(s): TPROT, ALB, ALT, AST, ALKPHOS, TBILI, AMYLASE, LIPASE, LACTATE in the last 24 hours. MG/PHOS: Recent Labs 09/23/17151 MG 1.9 P 3.4 Renal Panel: Recent Labs 09/23/17151 CREAT 0.98 BUN 17 GLUC 104* CA 8.9 P 3.4 CHLOR 107 K 3.6 CO2 29 NA 141 Heme: No results for input(s): RETICP, ABSRETIC, LD, WINTER, FE, TIBC, TRANSFERSAT in the last 24 hours. No results found for: UALBCR Assessment/Plan 1. Chest pain - recurrent. Spoke with Dr. Lockett. Will plan to cath on Sunday. Stress cancelled as he had a negative one in July 2017 Con't with IV morphine 2. Chronic stoma herniation/collapse - will have ostomy nurse see patient 3. CHronic systolic CHF - compensated 4. CAD - cath on Sunday 5. HTN - stable 6. Chronic abdominal pain - pain mgt consult 7. I question if the patient has the ability to truly care for himself at home. He has had frequent re admits between here and [facility]. Will have PT OT eval patient ? VTE Prophylaxis: Lovenox 40mg Sub Q Daily Disposition: Home vs SNF Plan of care discussed with: Patient and Consultants: Cardio SIGNATURE: Maranda Omer DO PATIENT NAME: Maxx Knott DATE: September 23, 2017 TIME: 8:20 AM PAGER/CONTACT #: [phone] CONSULT Observed: 09/23/2017 Status: COMPLETED Source: [place] 8:00 AM CLINIC OTHER CAMPUS REPOSITORY O ID: [id number] Author: Yassine Lockett Service: Cardiovascular Disease Author Type: Physician Type: Consults Filed: 09/23/2017 8:17 AM Note Text: CARDIOLOGY CONSULT NOTE REASON FOR CONSULT: Chest pain REQUESTING PHYSICIAN: Dr Omer. CC: HPI: Mr. Knott is a 67 year old male with history of Established CAD, s/p CABG z3 At the [place] 2002. Stents, Last one a t in October 2016. LAst seen earlier this month for same symptoms. On that admission he ruled out for injury. Medications were adjusted and he was discharged. He had a stress test on July and April of this year. These did not reveal ischemia. The patient had , once again , non exertional chest pain , non radiating and not associated with constitutional symptoms. He achieved little relief from ntg or asa. He is admitted for further care. CARDIAC RISK FACTORS: Smoking: No Diabetes:No Lipids: Yes Obesity: Yes HTN: Yes Sedentary Lifestyle: Yes Family History of M.A.C.E: No CHF: No Stroke /TIA: No PVD: No MOST RECENT CARDIAC TESTING: Echo: - Cardiac Catheterization: At 2016. Holter / Event Recorder : - Stress Test : July and Apr 2016: No ischemia. Fixed defect in the cxs distribution EF 43% TILT: - Device: PPM PAST MEDICAL HISTORY Diagnosis Date - AAA (abdominal aortic aneurysm) without rupture ([facility]) 05/13/[address] a/p - CAD (coronary artery disease) 2005 CAD s/p CABG x3 (ORHB-VAN-oodvzj, JFR-ANL-abzorh, QDN-JV1-daucodmb) (2005 at [facility]) - COPD (chronic obstructive pulmonary disease) ([facility]) - Current every day smoker PT SMOKES A PIPE - Diverticulitis Perforated Diverticulitis - Diverticulitis of sigmoid colon 05/15/2017 Added automatically from request for surgery [id number] - Hx of CABG - Pacemaker 02/16/2017 s/p PPM () 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 - Peritonitis (HCC) PAST SURGICAL HISTORY Procedure Laterality Date - APPENDECTOMY HX - COLOSTOMY 07/2016 Diverting Loop Colostomy of the Transverse Colon - HEART SURGERY HX triple bypass 10 yrs ago - PPM IMPLANT - STENT - CORONARY SOCIAL HISTORY Social History Substance Use Topics - Smoking status: Current Every Day Smoker Packs/day: 0.50 Years: 35.00 Types: Pipe, Cigarettes - Smokeless tobacco: Never Used Comment: Quit cigarettes 11-16-16 now smoking 4 pipes as of 04-18-17 - Alcohol use No FAMILY HISTORY Problem Relation Age of Onset - Coronary Artery Disease Father - Hyperlipidemia Father Family history was reviewed and non-contributory. ALLERGIES Allergen Reactions - Altaseptic Unknown - Brilinta [Ticagrelo* Unknown - Crestor [Rosuvastat* Myalgia - Hctz [Amiloride-Hyd* Swelling - Moxifloxacin Swelling - Other [place]-3s Unknown brelinta - Ramipril Swelling Other reaction(s): Facial swelling - Simvastatin Myalgia Other reaction(s): Facial swelling - Voltaren [Diclofena* Unknown MEDICATIONS: tamsulosin ER (FLOMAX) 0.4 mg cp24 Take 0.4 mg by mouth once daily as needed. ondansetron (ZOFRAN) 4 mg tablet Take 4 mg by mouth every 6 hours as needed. oxyCODONE-acetaminophen (PERCOCET) 10-325 mg tablet Take 1 tablet by mouth every 6 hours as needed for Pain. Has had both 5 and 10 mg strength prescribed over past year, says he currently has 10 mg strength at home vitamin B complex (B COMPLEX ORAL) Take 1 tablet by mouth once daily. aspirin, enteric coated (ASPIRIN, ENTERIC COATED) 81 mg EC tablet Take 81 mg by mouth once daily. cyclobenzaprine (FLEXERIL) 10 mg tablet Take 1 tablet by mouth at bedtime as needed for Muscle Spasm. amLODIPine (NORVASC) 10 mg tablet Take 10 mg by mouth once daily. loratadine 10 mg cap Take 1 capsule every day by oral route as needed pravastatin (PRAVACHOL) 40 mg tablet Take 40 mg by mouth daily at bedtime. gabapentin (NEURONTIN) 300 mg capsule Take 2 capsules by mouth daily at bedtime for 90 days. metoprolol succinate ER (TOPROL XL) 100 mg Tb24 Take 1 tablet by mouth once daily. QUEtiapine (SEROQUEL) 200 mg tablet Take 2 tablets by mouth daily at bedtime. MULTIVIT WITH IRON,MINERALS (MULTIVITAMIN AND MINERALS ORAL) Take 1 capsule by mouth once daily. albuterol HFA (PROVENTIL HFA, VENTOLIN HFA) 90 mcg/actuation inhaler Inhale 2 Puffs as instructed every 4 hours as needed for Wheezing/Shortness of Breath. fluticasone (FLONASE) 50 mcg/actuation nasal spray Use 1 [place] in the nose once daily as needed. nitroglycerin sublingual (NITROSTAT) 0.[address] ONE(1) TABLET UNDER TONGUE NEEDED FOR CHEST PAIN. IF NO PAIN RELIEF CALL 911 losartan (COZAAR) 100 mg tablet Take 100 mg by mouth once daily. furosemide (LASIX) 20 mg tablet Take 40 mg by mouth once daily as needed. COMPOUNDED PRESCRIPTION One Piece Ostomy Pouch Item Type: Coloplast Sensura One Piece Non-Sterile with Window 38-4 1/2'' ?5/BoxICD 10: Prolapsed Stoma K94.09 COMPOUNDED PRESCRIPTION Paste: Convatec Stomahesive 1 tubeICD 10: Prolapsed Stoma K 94.09 REVIEW OF SYSTEMS: GENERAL: Negative for:Weight loss and Weight gain. Fevers, night sweats or chills HEENT: Negative for:Nosebleeds RESPIRATORY: Negative for:Shortness of breath, sputum production, cough or hemoptysis. GASTROINTESTINAL: Negative for: Indigestion, epigastric burning, hematemesis or blood in stool MUSCULOSKELETAL: Negtive for: Muscle or joint pain, stiffness, Joint swelling SKIN: No rash HEMATOLOGICAL/LYMPHATIC: Negative for: Easy bruising and Easy bleeding CARDIOVASCULAR: As stated in HPI. 10 system review negative except as stated in HPI PHYSICAL EXAMINATION: BP 146/85 Pulse 59 Temp (Src) 97.3 (Oral) Resp 18 Ht 5' 8 (1.73m) Wt 194 lb (88.0kg) SpO2 97% BMI 29.50 kg/(m2). General: Well appearing, appears stated age and in no acute distress. Eyes: No subconjunctival hemorrhage Skin: No rash, bruising Oropharynx: Mucous membranes normal Neck: No jugular venous distention, no HJR, no carotid bruits. Lymph: No cervical lymphadenopathy Chest: Normal in ap diameter. No surgical scars or implants. No devices or ports Lungs: Clear to auscultation bilaterally, no wheezing or rhonchi. Heart: Rhythm is regular. No Liftsor heaves. PMI is not displaced. S1, S2 normal, no murmur Extremities: No peripheral edema VAscular: Pulses are symmetric. No bruits over the major vascular beds.Capillary refill at the toes 2+ Neuro: NO acute focal motor or sensory deficits. Reflexes are normal. Affect and mentation are appropriate for current in -hospital condition. Gait was not tested. LABS Recent Labs 09/23/17 0152 TROPI <0.015 WBC 8.02 RBC 4.00* HB 11.9* HCT 36.5* MCV 91.3 MCH 29.8 MCHC 32.6 PLT 290 MPV 10.1 GLUC 104* BUN 17 CREAT 0.98 NA 141 K 3.6 CHLOR 107 CO2 29 CA 8.9 MG 1.9 Triglyceride 100 10/02/2016 HDL Cholesterol 37 10/02/2016 LDL Calculated 125 10/02/2016 Cholesterol, Total 182 10/02/2016 EK lead EKG shows normal sinus rhythm. AK and QT intervals are normal. There are no ST segment changes suggestive of ischemia or infarction. Radiology: NO infiltrates. PPM in situ. NM studies reviewed, agree with results. Impression/Recommendations ASSESSMENT/PLAN: 1. Chest pain, unspecified type - ICD9: 786.50, ICD10: R07.9 (primary diagnosis) Atypical oin character and pattern. However, This patient has had multiple admissions for same complains, in spite of medical therapy. He has known cad, s/p cabg and stents. We need to do diagnosatinc cath to establish current status. Will coordinate for Sunday. 2. Coronary artery disease involving [place] coronary artery without angina pectoris, unspecified whether [place] or transplanted heart - ICD9: 414.01, ICD10: I25.10 S/p CABG and last stent in October of last yr at . Will add imdur 30 mg daily. Cath on Sunday. 3. Essential hypertension - ICD9: 401.9, ICD10: I10 - fair control - Continue current medication(s) 4. Mixed hyperlipidemia - ICD9: 272.2, ICD10: E78.2 - good control - Continue current medication. 5. S/P CABG (coronary artery bypass graft) - ICD9: V45.81, ICD10: Z95.1 above. 6. S/P angioplasty with stent - ICD9: V45.89, ICD10: Z95.9 As above. 7. Chronic systolic HF (heart failure) (HCC) - ICD9: 428.22, ICD10: I50.22 Last EF 43%. No acute decompensation. Continue Losartan. Yassine Lockett MD Thank you for allowing me to participate in the care of this patient. Further recommendations to follow depending on clinical course.Please don't hesitate to contact me if there are any questions regarding the care of our mutual patient. Yassine Lockett MD, [facility] Card[facility]. September 23, 2017 Pager: [phone] HEMOGRAM/DIFF Collected: 09/23/2017 Status: F Source: [facility] 1:52 AM HEALTH SYSTEM REPOSITORY TYPE CODE TESTS RESULT OUT OF REFERENCE UNITS RANGE LAB WBC(LOINC) 4.23-9.07 thou/cmm WBC 8.02 LAB RBC(LOINC) 4.63-6.08 mil/cmm Low RBC 4.00 LAB HGB(LOINC) 13.7-17.5 g/dL Low Hgb 11.9 LAB HCT(LOINC) 40.1-51.0 % Low Hct 36.5 LAB MCV(LOINC) 83.2-95.6 fl MCV 91.3 LAB MCH(LOINC) 25.7-32.2 pg MCH 29.8 LAB MCHC(LOINC 32.3-36.5 % ) MCHC 32.6 LAB RDW(LOINC) 11.6-14.4 % RDW 13.4 LAB RDWSD(LOIN 36.1-45.8 fl C) RDW SD 45.0 LAB PLT(LOINC) 141-365 thou/cmm Platelet 290 LAB MPV(LOINC) 8.7-12.0 fl MPV 10.1 LAB SEG(LOINC) % Seg Neutrophil 61.5 LAB IGRE(LOINC % ) Immature Grans 0.20 LAB LYMPH(LOIN % C) Lymphocyte 27.8 LAB MNO(LOINC) % Monocyte 7.2 LAB EOSIN(LOIN % C) Eosinophil 2.9 LAB BASO(LOINC % ) Basophil 0.4 LAB SEGN(LOINC 1.78-5.38 thou/cmm ) Abs. Neut (ANC) 4.93 LAB IGAB(LOINC 0.00-0.05 thou/cmm ) Abs Immature Grans 0.02 LAB LYMN(LOINC 0.84-2.85 thou/cmm ) Abs. Lymph 2.23 LAB MONON(LOIN 0.30-0.82 thou/cmm C) Abs. [place] 0.58 LAB EOSN(LOINC 0.04-0.54 thou/cmm ) Abs. Eosin 0.23 LAB BASON(LOIN 0.01-0.08 thou/cmm C) Abs. Baso 0.03 Performed By: #### CBCD1 #### [place] [address] TROPONIN I Collected: 09/23/2017 Status: F Source: [facility] 1:52 HEALTH SYSTEM REPOSITORY TYPE CODE TESTS RESULT OUT OF REFERENCE UNITS RANGE LAB TROP(LOINC) 0.015-0.045 ng/ml Troponin I < 0.015 Performed By: #### TROP #### [place] [address] BASIC PANEL Collected: 09/23/2017 Status: F Source: [facility] 1:[address] [place] [address] SYSTEM REPOSITORY TYPE CODE TESTS RESULT OUT OF REFERENCE UNITS RANGE LAB NA(LOINC) 136-145 mEq/L Sodium Blood 141 LAB K(LOINC) 3.5-5.1 mEq/L Potassium Blood 3.6 LAB CL(LOINC) 98-107 mEq/L Chloride Blood 107 LAB CO2(LOINC) 21-32 mEq/L CO2 Blood 29 LAB GLU(LOINC) 70-99 mg/dL Glucose High Blood 104 LAB BUN(LOINC) 7-18 mg/dL BUN Blood 17 LAB CREA(LOINC 0.67-1.17 mg/dL ) Creatinine Blood 0.98 LAB CA(LOINC) 8.5-10.1 mg/dL Calcium Blood 8.9 LAB ANGAP(LOIN 8-16 C) Anion Gap 9 Performed By: #### P8 #### [place] [address] MAGNESIUM BLOOD Collected: 09/23/2017 Status: F Source: [facility] 1:52 AM HEALTH SYSTEM REPOSITORY TYPE CODE TESTS RESULT OUT OF REFERENCE UNITS RANGE LAB MAG(LOINC) 1.6-2.6 mg/dL Magnesium Blood 1.9 Performed By: #### MAG #### [facility] [address] [place] [address] PHOSPHORUS BLOOD Collected: 09/23/2017 Status: F Source: [facility] 1:52 AM HEALTH SYSTEM REPOSITORY TYPE CODE TESTS RESULT OUT OF REFERENCE UNITS RANGE LAB PHOS(LOINC 2.5-4.9 mg/dL ) Phosphorus Blood 3.4 Performed By: #### PHOS #### [place] [address] MDRD GFR Collected: 09/23/2017 Status: F Source: [facility] 1:52 AM HEALTH SYSTEM REPOSITORY TYPE CODE TESTS RESULT OUT OF RANGE REFERENCE UNITS LAB GFRFN(LOINC >60mL/min/1.73m ) 2 eGFR >60 Result Comment: If the patient is , multiply the result by 1.210. Performed By: #### GFR #### [place] [place] [address] TROPONIN I Collected: 09/22/2017 Status: F Source: [facility] 10:20 PM HEALTH SYSTEM REPOSITORY TYPE CODE TESTS RESULT OUT OF REFERENCE UNITS RANGE LAB TROP(LOINC) 0.015-0.045 ng/ml Troponin I < 0.015 Performed By: #### TROP #### [place] [address] HISTORY PHYSICAL Observed: 09/22/2017 Status: COMPLETED Source: [place] 9:11 PM CLINIC OTHER CAMPUS REPOSITORY O ID: [id number] Author: Ratna Chavez Service: Hospital Medicine Author Type: Physician Type: HANDP Filed: 09/22/2017 9:29 PM Note Text: [facility]PARTMENT OF H[facility]PITAL MEDICINE [place] [facility] HISTORY AND PHYSICAL EXAMINATION SERVICE DATE: 09/22/2017 9:11 PM PRIMARY CARE PHYSICIAN: Bijan Perez MD Subjective CHIEF COMPLAINT: Chest pain HPI: This is a 67 year old male who presents with chest pain starting this morning, without exertion. He has been having fairly constant retrosternal tightness most of the day, with some left sided radiation, but no palpitations or orthostatic symptoms. He had a stent placed in October 2016 and has been on dual therapy since. He was just hospitalized for evaluation of his chronic colostomy herniation, but no surgical recommendation was made (at [facility]). FUNCTIONAL STATUS: Independent PAST MEDICAL HISTORY Diagnosis Date - AAA (abdominal aortic aneurysm) without rupture ([facility]) 05/13/[address] a/p - CAD (coronary artery disease) 2005 CAD s/p CABG x3 (KAZU-PEP-cajgmx, IQB-IKC-kugcjg, JTK-ZW1-qlezruvz) (2006 at [place]) - COPD (chronic obstructive pulmonary disease) ([facility]) - Current every day smoker PT SMOKES A PIPE - Diverticulitis Perforated Diverticulitis - Diverticulitis of sigmoid colon 05/15/2017 Added automatically from request for surgery [id number] - Hx of CABG - Pacemaker 02/16/2017 s/p PPM () 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 - Peritonitis ([facility]) PAST SURGICAL HISTORY Procedure Laterality Date - APPENDECTOMY HX - COLOSTOMY 07/2016 Diverting Loop Colostomy of the Transverse Colon - HEART SURGERY HX triple bypass 10 yrs ago - PPM IMPLANT - STENT - CORONARY FAMILY HISTORY Problem Relation Age of Onset - Coronary Artery Disease Father - Hyperlipidemia Father Social History Substance Use Topics - Smoking status: Current Every Day Smoker Packs/day: 0.50 Years: 35.00 Types: Pipe, Cigarettes - Smokeless tobacco: Never Used Comment: Quit cigarettes 11-16-16 now smoking 4 pipes as of 04-18-17 - Alcohol use No MEDICATIONS Please see reconciled medication list in [facility] for details on home medications. ALLERGIES Allergen Reactions - Altaseptic Unknown - Brilinta [Ticagrelo* Unknown - Crestor [Rosuvastat* Myalgia - Hctz [Amiloride-Hyd* Swelling - Moxifloxacin Swelling - Other [place]-3s Unknown brelinta - Ramipril Swelling Other reaction(s): Facial swelling - Simvastatin Myalgia Other reaction(s): Facial swelling - Voltaren [Diclofena* Unknown COMPLETE REVIEW OF SYSTEMS: PAIN ASSESSMENT: CURRENTLY HAVING PAIN; see HPI GENERAL: Fatigue HEENT: Negative for frequent or significant headaches, No changes in hearing or vision, no nose bleeds or other nasal problems NECK: Negative for lumps, goiter, pain and significant neck swelling RESPIRATORY: Negative for cough, hemoptysis, wheezing, COPD, dyspnea or shortness of breath CARDIOVASCULAR: See HPI GI: No nausea, vomiting, or diarrhea and See HPI : No history of dysuria, frequency or incontinence MUSCULOSKELETAL: Negative for joint pain or swelling, back pain or muscle pain SKIN: Negative for lesions, rash, and itching PSYCH: Negative for sleep disturbance, mood disorder and recent psychosocial stressors HEMATOLOGY/LYMPHOLOGY: Negative for prolonged bleeding, bruising easily or swollen nodes ENDOCRINE: Negative for cold or heat intolerance, polyuria, polydipsia and goiter NEURO: No history of headaches, syncope, paralysis, seizures or tremors Objective PHYSICAL EXAM: GENERAL: Alert, Mild Distress, Cooperative SKIN: Skin color, texture, turgor normal. No rashes or lesions. HEAD/SINUSES: No significant findings EYES: PERRLA, EOMI OROPHARYNX: Lips, mucosa, and tongue normal. Teeth and gums normal. Oropharynx normal. NECK: No jugulovenous distention, No carotid bruits, Carotid pulse normal contour, Supple LUNGS: Lungs clear to auscultation, Good diaphragmatic excursion CARDIAC: Normal S1 and S2; no rubs, murmurs, or gallops ABDOMEN: large colostomy prolapse, diffusely tender around it. EXTREMITIES: Extremities normal, no deformities, edema, clubbing or skin discoloration. Good capillary refill., No ulcers NEURO: Cranial nerves II-XII intact PULSES: 2+ radial, 2+ dorsalis pedis, 2+ carotid Patient Vitals for the past 24 hrs: BP Temp Temp src Pulse Resp SpO2 Height Weight 09/22/17 2045 154/68 37.2 ?C (99 ?F) Oral 61 18 99 % - - 09/22/17 1912 159/67 - - 60 18 99 % - - 09/22/17 1820 152/81 - - 60 18 100 % - - 09/22/17 1704 165/62 - - 60 16 100 % - - 09/22/17 1625 111/80 - - 60 18 100 % 172.7 cm (5' 8) 88 kg (194 lb) Body mass index is 29.5 kg/m?. Assessment/Plan Principal Problem: Chest pain POA: Yes Assessment AND Plan: Will get stress test and cardiology consultation for further input. Stent was 10 months ago, and has had prior CABG. 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 Hypertensive heart disease with congestive heart failure (HCC) POA: Yes Assessment AND Plan: BP controlled at this time, continue Cozaar and Metoprolol Essential hypertension POA: Yes Assessment AND Plan: controlled -- will use morphine for pain control overnight. He has a history of multiple short term Rx for narcotics with frequent hospitalizations lately, but I do not see an issue with using appropriate pain control here for now. He needs establishment with pain management, will consult. Resolved Problems: * No resolved hospital problems. * Advanced Care Planning Purpose of Encounter: Advanced care planning in light of Chest pain Parties in Attendance: Patient, Dr. Ratna Chavez MD, Decisional Capacity: full Code Status: Emergency Department Physician Spent on Advance Care Plannin minutes Total time 30 minutes during this encounter, including chart review, discussion with nursing staff and/or other providers, documentation, order clerk, and skne-bd-schj time with patient. Of this time, greater than 50% was spent counseling and coordinating care. Counseling elements include educating the patient about diagnosis, further testing, and care related to <principal problem not specified>. Plan of care discussed with: Patient and RN VTE Prophylaxis: Lovenox 40mg Sub Q Daily Diagnostic tests reviewed for today's visit: Most recent labs and imaging results. Most recent EKG TELEMETRY: Paced LABS CBC: Recent Labs 09/22/17 1625 WBC 9.34* HB 13.6* PLT 343 CMP: Recent Labs 09/22/17 1625 NA 139 K 4.0 CHLOR 106 CO2 28 BUN 14 CREAT 0.98 GLUC 116* CA 9.3 ECU TROPONIN I (AR ED) [[id number]] Collected: 09/22/17 1625 Updated: 09/22/17 1721 Specimen Source: BLOOD ECU Troponin I <0.015 ng/ml RADIOLOGY 09/22/2017 ?5:24 PM - Radiology, [place] In Results EXAMINATION: ?CHEST RADIOGRAPH (PORTABLE SINGLE VIEW AP) ? Exam Date/Time: ?09/22/2017 5:02 PM Clinical History: Chest pain ? M: ?XCP_4 Comparison: ?09/09/2017 ? RESULT: Lines, tubes, and devices: ?Left-sided dual-chamber cardiac pacemaker is stable. ? Lungs and pleura: ?No airspace consolidation, lung mass, pleural effusion or pneumothorax. ? Cardiomediastinal silhouette: ?Stable cardiomediastinal silhouette. ?There has been prior CABG with sternal wires and mediastinal surgical clips. ? Left hemidiaphragmatic hernia is stable. ? IMPRESSION: 1. ?Stable exam. ?No acute radiographic abnormality. ? 2. ?Left hemidiaphragmatic hernia appears stable. SIGNATURE: Ratna Chavez MD PATIENT NAME: Maxx Knott DATE: September 22, 2017 TIME: 9:11 PM PAGER/CONTACT #: [id number] NIGHT AND WEEKEND COVERAGE: After 7pm please page [phone] ED PROV NOTE Observed: 09/22/2017 Status: COMPLETED Source: [place] 7:34 PM CLINIC OTHER CAMPUS REPOSITORY HNO ID: [id number] Author: Aneudy Hsieh MD Service: Emergency Medicine Author Type: Resident Type: ED Provider Notes Filed: 09/24/2017 3:32 AM Note Text: Attestation signed by Radhika Faust MD at 09/24/2017 9:01 AM Attending Note I evaluated the patient and personally participated in the nelson components. I agree with the resident's findings and plan as documented and have discussed the case and management of the patient's care with the resident. See my note from the same visit for any corrections or additions to resident's note. Signature: Radhika Faust MD Date: 09/24/2017 Time: 9:00 AM ED Provider Note Patient Name: Maxx Knott SERVICE DATE: 09/22/17 History Patient presents with: Chest Pain: Pt states was having misternal chest pain and shortness of breath at home. Pt took 2 asprin and 3 nitro at home with some relief. EMS gave pt 2 ASA. Pt arrived in no respiratory distress, complains of midsternal chest pain 8/10 that raditates to the left. Hx PA x 2. CABG, pacer Patient is a 67 year old male with past medical history of coronary artery disease, CABG, pacemaker, diverting colonoscopy presents to the emergency department for chest pain. Patient states the chest pain started approximately at 11 AM this morning. He describes the pain as 8/10, achy, left of the sternum. This pain is associated with nausea and shortness of breath but not with radiation or diaphoresis. Patient is also endorsing 9/10 sharp and achy pain around his prolapsed colostomy that he states started two hours ago. Patient states that his colostomy has prolapsed before but never to this extent. Patient is requesting narcotic pain medications. He denies fever, vision changes, vomiting, diarrhea. 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 - Peritonitis ([facility]) PAST SURGICAL HISTORY Procedure Laterality Date - APPENDECTOMY HX - COLOSTOMY 07/2016 Diverting Loop Colostomy of the Transverse Colon - HEART SURGERY HX triple bypass 10 yrs ago - PPM IMPLANT - STENT - CORONARY FAMILY HISTORY Problem Relation Age of Onset - Coronary Artery Disease Father - Hyperlipidemia Father Social History Social History Main Topics - Smoking status: Current Every Day Smoker Packs/day: 0.50 Years: 35.00 Types: Pipe, Cigarettes - Smokeless tobacco: Never Used Comment: Quit cigarettes 11-16-16 now smoking 4 pipes as of 04-18-17 - Alcohol use No - Drug use: No - Sexual activity: Not Currently ALLERGIES Allergen Reactions - Altaseptic Unknown - Brilinta [Ticagrelo* Unknown - Crestor [Rosuvastat* Myalgia - Hctz [Amiloride-Hyd* Swelling - Moxifloxacin Swelling - Other [place]-3s Unknown brelinta - Ramipril Swelling Other reaction(s): Facial swelling - Simvastatin Myalgia Other reaction(s): Facial swelling - Voltaren [Diclofena* Unknown Review of Systems Constitutional: Negative for chills, diaphoresis and fever. HENT: Negative for congestion and rhinorrhea. Eyes: Negative for pain and discharge. Respiratory: Positive for shortness of breath. Negative for cough. Cardiovascular: Positive for chest pain. Negative for leg swelling. Gastrointestinal: Positive for abdominal pain and nausea. Negative for diarrhea and vomiting. Endocrine: Negative for polyphagia and polyuria. Genitourinary: Negative for dysuria and frequency. Musculoskeletal: Negative for arthralgias, myalgias and neck pain. Skin: Negative for pallor and rash. Neurological: Negative for syncope and headaches. Psychiatric/Behavioral: Negative for self-injury and suicidal ideas. Physical Exam BP 159/67 Pulse 60 Resp 18 Ht 5' 8 (1.73m) Wt 194 lb (88.0kg) SpO2 99% BMI 29.50 kg/(m2). Physical Exam Constitutional: He is oriented to person, place, and time. He appears well-developed and well-nourished. No distress. HENT: Head: Normocephalic and atraumatic. Nose: Nose normal. Eyes: EOM are normal. Pupils are equal, round, and reactive to light. Neck: Normal range of motion. Neck supple. Cardiovascular: Normal rate and regular rhythm. Pulmonary/Chest: Effort normal and breath sounds normal. Abdominal: Soft. Bowel sounds are normal. He exhibits no distension. There is tenderness (diffuse). There is no guarding. Musculoskeletal: Normal range of motion. He exhibits no deformity. No calf tenderness Neurological: He is alert and oriented to person, place, and time. Skin: Skin is warm and dry. He is not diaphoretic. Psychiatric: He has a normal mood and affect. His behavior is normal. Nursing note and vitals reviewed. Chest Pain Pathway History of Present Symptoms: Moderate Risk ECG Findings: New T-wave Inversion Number of Risk Factors: 3 Initial High Sensitivity Troponin: <12 ng/l Total Heart Score: 5 Based on the above information, patient is at moderate risk for a Major Adverse Cardiac Event at 30 days Diagnostic Testing ED Labs Ordered and Reviewed CBC + AUTO DIFF (AK,AV,EU,FV,HL,DEMARCO,MM,SP) - Abnormal; Notable for the following: Result Value Ref Range WBC 9.34 (*) 4.23 - 9.07 thou/cmm RBC 4.48 (*) 4.63 - 6.08 mil/cmm HGB 13.6 (*) 13.7 - 17.5 g/dL Abs. Neut(Anc) 7.24 (*) 1.78 - 5.38 thou/cmm All other components within normal limits BASIC METABOLIC PANEL (AK,AV,EU,FV,HL,DEMARCO,MM,SP) - Abnormal; Notable for the following: Glucose 116 (*) 70 - 99 mg/dL All other components within normal limits ECU TROPONIN I ([facility] ED) MDRD GFR Procedures Medical Decision Making MDM 67 year old male presents with chest and abdominal pain. On initial assessment patient was found in no acute distress, vitals hemodynamically stable and afebrile. Pain was controlled with tylenol. Initial concern for PA, ACS, stomal strangulation. EKG shows atrial sensed ventricular paced rhythm, no ST segment changes, new T-wave inversions in V2 and V3, no ST segment elevations, normal axis. CBC shows slight leukocytosis, baseline anemia, no thrombocytopenia. Metabolic panel shows no electrolyte abnormalities, no kidney dysfunction. Initial troponin was undetectable. Chest x-ray is unremarkable for any acute change. Patient failed to mention that he was recently admitted to [facility] for this abdominal pain and concerns of colostomy prolapse. Upon that chart review patient is not to be admitted for phenomenal pain and appears to have some drug-seeking behavior. Given the patient's cardiac history patient was admitted for further management and monitoring of his chest pain. Patient did receive nitro and aspirin by EMS. Nitro paste started here in the emergency department for his chest pain. Patient admitted in stable condition. ED Course / Clinical Impression Clinical Impressions as of Sep 22 1933 Chest pain, unspecified type Plan SIGNATURE: MD Aneudy Beach (Res) MD Jori Resident 09/24/17 0332 Radhika Faust MD 09/24/17 0901 CHEST 1 VIEW Observed: 09/22/2017 Status: F Source: [facility] 5:02 PM HEALTH SYSTEM REPOSITORY Performed at [facility] APPROVED BY: YONAS NICKERSON MD EXAMINATION: CHEST RADIOGRAPH (PORTABLE SINGLE VIEW AP) Exam Date/Time: 09/22/2017 5:02 PM Clinical History: Chest pain M: XCP_4 Comparison: 09/09/2017 RESULT: Lines, tubes, and devices: Left-sided dual-chamber cardiac pacemaker is stable. Lungs and pleura: No airspace consolidation, lung mass, pleural effusion or pneumothorax. Cardiomediastinal silhouette: Stable cardiomediastinal silhouette. There has been prior CABG with sternal wires and mediastinal surgical clips. Left hemidiaphragmatic hernia is stable. IMPRESSION: 1. Stable exam. No acute radiographic abnormality. 2. Left hemidiaphragmatic hernia appears stable. ED PROV NOTE Observed: 09/22/2017 Status: COMPLETED Source: [place] 5:00 PM [facility] OTHER CAMPUS REPOSITORY HNO ID: [id number] Author: Radhika Faust MD Service: Emergency Medicine Author Type: Physician Type: ED Provider Notes Filed: 09/22/2017 5:28 PM Note Text: Attending Note I personally saw and examined the patient. I reviewed the resident's note. I agree with the resident's assessment and plan unless otherwise noted. I was present for the significant portion of the procedure(s). Brief HPI: Maxx Knott is a 67 year old male with a PMH of colostomy with chonic prolapse, CAD s/p CABG and stents who presents for evaluation of chest discomfort. Patient states around 10 AM this morning he began to have a chest discomfort. It is poorly described diffusely across his anterior chest wall. No associated shortness of breath or syncope. No cough. he is unsure what this feels like his previous heart attacks. His also complaining of abdominal pain and parastomal pain.no vomiting. Normal stool output. Physical Exam: - Gen: chronically ill but nontoxic appearing, NAD, vitals within normal limits - CV: RRR without m/r/g - Pulm: No respiratory distress, CTAB - Neuro: No focal neurologic deficits, AANDOx3 - abdomen: soft, diffusely tender, no rebound or guarding Courtney in right lower quadrant there is a large parastomal herniation into his ostomy bag. No necrosis, dusky discoloration, or blood noted. EKG: AV paced rhythm without acute ST elevations or depressions. Plan: cardiac workup including chest x-ray, labs, troponin. Artery received aspirin by EMS. MDM: cardiac perspective this gentleman has a large cardiac history including prior CABG complaining of chest pain started at 10 AM this morning. We'll perform cardiac workup. Given his risk factors admission will be indicated for further cardiac risk stratification. Patient also might of abdominal pain and stomal pain. Initially asked him how long he had this stoma prolapse. He made it sound as though this is a new issue for him and was requesting pain medication to help with that. I asked if he been evaluated recently for this and he told me no. Review of his chart reveals that he was admitted for a stoma protrusion and discharged on September 20. Attending physician at that time wrote the patient has a chronic prolapsed stoma and that no admission. Is needed unless there is a true surgical emergency. Patient was not forthcoming with me about this. Continue to inquire about getting pain medication. I informed him that for his chest pain further pain medication is not indicated at this time. We'll continue cardiac workup at this time I do not feel that opiate pain medication is indicated. HEART Score HPI: Moderately suspicious +1 EKG: Non-specific repolarization abnormality +1 Age: >65 +2 Risk factors: Greater than or equal to 3 risk factors +2 Troponin: Under normal limit +0 HEART score: 6 *The HEART Score is a prospectively studied scoring system to help emergency physicians risk-stratify chest pain patients who are at risk for all-cause mortality, myocardial infarction, or coronary revascularization in the next 6 weeks. Low risk patients have a score 0-3 and have a less than 2% risk of major event at 6 weeks.* See resident note for disposition details Radhika Faust MD 09/22/17 1728 ED NOTE Observed: 09/22/2017 Status: COMPLETED Source: [place] 4:33 PM CLINIC OTHER CAMPUS REPOSITORY HNO ID: [id number] Author: Tracey (Medic) Dwight Chong Service: (none) Author Type: Bed Setter and Scraper Meat Type: ED Notes Filed: 09/22/2017 4:33 PM Note Text: Bed: ED-09 Expected date: 09/22/17 Expected time: 4:12 PM Means of arrival: Brian HEIN Comments: brian giron/yumiko HEMOGRAM/DIFF Collected: 09/22/2017 Status: F Source: [facility] 4:25 PM HEALTH SYSTEM REPOSITORY TYPE CODE TESTS RESULT OUT OF REFERENCE UNITS RANGE LAB WBC(LOINC) 4.23-9.07 thou/cmm WBC High 9.34 LAB RBC(LOINC) 4.63-6.08 mil/cmm Low RBC 4.48 LAB HGB(LOINC) 13.7-17.5 g/dL Low Hgb 13.6 LAB HCT(LOINC) 40.1-51.0 % Hct 40.5 LAB MCV(LOINC) 83.2-95.6 fl MCV 90.4 LAB MCH(LOINC) 25.7-32.2 pg MCH 30.4 LAB MCHC(LOINC 32.3-36.5 % ) MCHC 33.6 LAB RDW(LOINC) 11.6-14.4 % RDW 13.4 LAB RDWSD(LOIN 36.1-45.8 fl C) RDW SD 44.1 LAB PLT(LOINC) 141-365 thou/cmm Platelet 343 LAB MPV(LOINC) 8.7-12.0 fl MPV 10.2 LAB SEG(LOINC) % Seg Neutrophil 77.5 LAB IGRE(LOINC % ) Immature Grans 0.30 LAB LYMPH(LOIN % C) Lymphocyte 16.1 LAB MNO(LOINC) % Monocyte 4.4 LAB EOSIN(LOIN % C) Eosinophil 1.4 LAB BASO(LOINC % ) Basophil 0.3 LAB SEGN(LOINC 1.78-5.38 thou/cmm ) Abs. High Neut (ANC) 7.24 LAB IGAB(LOINC 0.00-0.05 thou/cmm ) Abs Immature Grans 0.03 LAB LYMN(LOINC 0.84-2.85 thou/cmm ) Abs. Lymph 1.50 LAB MONON(LOIN 0.30-0.82 thou/cmm C) Abs. [place] 0.41 LAB EOSN(LOINC 0.04-0.54 thou/cmm ) Abs. Eosin 0.13 LAB BASON(LOIN 0.01-0.08 thou/cmm C) Abs. Baso 0.03 Performed By: #### CBCD1 #### [place] [address] BASIC PANEL Collected: 09/22/2017 Status: F Source: [facility] 4:25 PM HEALTH SYSTEM REPOSITORY TYPE CODE TESTS RESULT OUT OF REFERENCE UNITS RANGE LAB NA(LOINC) 136-145 mEq/L Sodium Blood 139 LAB K(LOINC) 3.5-5.1 mEq/L Potassium Blood 4.0 LAB CL(LOINC) 98-107 mEq/L Chloride Blood 106 LAB CO2(LOINC) 21-32 mEq/L CO2 Blood 28 LAB GLU(LOINC) 70-99 mg/dL Glucose High Blood 116 LAB BUN(LOINC) 7-18 mg/dL BUN Blood 14 LAB CREA(LOINC 0.67-1.17 mg/dL ) Creatinine Blood 0.98 LAB CA(LOINC) 8.5-10.1 mg/dL Calcium Blood 9.3 LAB ANGAP(LOIN 8-16 C) Anion Gap 9 Performed By: #### P8 #### [place] [address] MDRD GFR Collected: 09/22/2017 Status: F Source: [facility] 4:25 PM HEALTH SYSTEM REPOSITORY TYPE CODE TESTS RESULT OUT OF RANGE REFERENCE UNITS LAB GFRFN(LOINC >60mL/min/1.73m ) 2 eGFR >60 Result Comment: If the patient is , multiply the result by 1.210. Performed By: #### GFR #### [facility] [address] [place] [id number] ECU TROPONIN I Collected: 09/22/2017 Status: F Source: [facility] 4:25 PM HEALTH SYSTEM REPOSITORY TYPE CODE TESTS RESULT OUT OF REFERENCE UNITS RANGE LAB ERTRP(LOINC 0.015-0.045 ng/ml ) ECU Troponin I < 0.015 Performed By: #### ERTRP #### [facility] [address] [place], [place] [address] EKG Observed: 09/22/2017 Status: F Source: [place] 4:20 PM CLINIC OTHER CAMPUS REPOSITORY NAME : MAXX KNOTT PID : [id number] : 1950 Gender : Male Race : ORD : Procedure Date : Sep 22 2017 16:20 Edit Date : Sep 25 2017 07:54 Diagnosis:NORMAL SINUS RHYTHM ABNORMAL ECG WHEN COMPARED WITH ECG OF 09-SEP-2017 12:54, RSR' PATTERN IN V1 IS NO LONGER PRESENT INVERTED T WAVES HAVE REPLACED NONSPECIFIC T WAVE ABNORMALITY IN ANTERIOR LEADS Confirmed by MD KELLEE G (2) on 09/25/2017 7:54:12 AM Ventricular Rate : 62 BPM Atrial Rate : 62 BPM P-R Interval : 208 ms QRS Duration : 102 ms Q-T Interval : 408 ms QTC Calculation(Bezet) : 414 ms P [place] : 55 degrees R [place] : 38 degrees T [place] : 54 degrees Test Reason : Location : 21 : 2100 2116 Overread By : MD GOODSON G Editted By : MD GOODSON G Referred By : , Acquired by : Maranda Manzo 12 LEAD ELECTROCARDIOGRAM Observed: 09/21/2017 Status: F Source: [place] 10:55 AM [facility] REPOSITORY [facility] Cardiovascular Services [address] [place] [address] 12 Lead EKG 09/19/17 1833 MR#: [id number] Acct: [id number] Name: MAXX KNOTT Shekhar Rep #: [id number] : 1950 67 From: Kassandra Lundberg MD Attending Dr: Status: DEP ER Ordering Dr: Gabriel Mandujano MD Date: 09/19/17 Location: ED Sex: M C Admitted: Test Reason : CHEST PAIN Blood Pressure : / mmHG Vent. Rate : 072 BPM Atrial Rate : 072 BPM P-R Int : 190 ms QRS Dur : 104 ms QT Int : 400 ms P-R-T Axes : [phone] degrees QTc Int : 438 ms Normal sinus rhythm Nonspecific T wave abnormality Abnormal ECG Confirmed by LAUREEN METCALF, KASSANDRA ([id number]), copy editor LAMAR AHN ([id number]) on 09/21/2017 10:55:21 AM Referred By: NAZIA Confirmed By:KASSANDRA LUNDBERG MD 09/21/17 1055 Date Kassandra Lundberg MD CC: [facility]; Gabriel Mandujano MD Signed CASE MANAGEM Observed: 09/20/2017 Status: COMPLETED Source: [place] 4:04 PM [facility] [place] REPOSITORY O ID: [id number] Author: Aida (Rn) MITCHELL Powell Service: Care Management Author Type: Registered Nurse Type: Care Mgt Progress Note Filed: 09/20/2017 4:09 PM Note Text: CARE MANAGEMENT DISCHARGE NOTE SERVICE DATE: 09/20/2017 SERVICE TIME: 4:04 PM LOS: 1 day Admission Date: 09/20/2017 DISCHARGE ARRANGEMENT (list agency and phone number) Home care Provider: [facility] CAREGIVER ASSESSMENT: Caregiver is ready, willing and able to meet the patient's needs as recommended by the inter-professional team? Yes Patient's transition needs and plan for meeting these needs: Home with Care Does the patient have an acute stroke diagnosis, or has the patient had a stroke during this admission? No HANDOFF COMMUNICATION: [facility] / [facility] - [facility]Care, Hospice and Palliative Care (Central Intake) TRANSPORTATION ARRANGEMENTS: Taylor Rhodes [phone] ADDITIONAL CONTACT RESOURCES: N/A Reviewed discharge instructions, patient discharged home with skilled home care.[facility] / [facility]Care, Hospice and Palliative Care (Central Intake) to provide home care services. Start of care 09/21/17.Agency contact information given to the patient. Discharge instructions by nursing staff. CM set transport with Elissa Cazares SIGNATURE: Aida Powell RN PATIENT NAME: Maxx Knott DATE: September 20, 2017 TIME: 4:04 PM PAGER/CONTACT #: [phone] CASE MANAGEM Observed: 09/20/2017 Status: COMPLETED Source: [place] 4:04 PM [facility] REPOSITORY O ID: [id number] Author: Jason Morrow MD Service: General Internal Medicine Author Type: Physician Type: Care Mgt Progress Note Filed: 09/21/2017 4:29 PM Note Text: CARE MANAGEMENT UTILIZATION REVIEW COMMITTEE Provider-Liable (Admission Status Discrepancy Review) Admission Date: 09/20/2017 Patient's Initial Order is: Inpatient Date received: September 21, 2017 Date reviewed: 09/21/2017 Under the authority of the Utilization Management Plan, the Physician Advisor has reviewed the medical record of the above patient. The following recommendation has been made by the Physician Advisor, based upon the current available medical information as of the date of this determination. The patient was discharged from the hospital on 09/20/2017. This determination was made after hospital discharge on 09/21/2017. This patient is appropriate for: Observation Rationale for this decision: Lack of medical necessity for inpatient status SIGNATURE: Jason Morrow MD PATIENT NAME: Maxx Knott DATE: September 21, 2017 TIME: 4:29 PM PAGER/CONTACT #: Disclaimer: The information in this determination is to be used for utilization management purposes only. The information and recommendation is made pursuant to Medicare Hospital Conditions of Participation (442 CFR Part 482) and is neither a judgment nor an assessment with regard to the appropriateness or quality of the clinical care. Nothing in this document may be used to limit clinical services provided to the above named patient. This form should be used as one part of the process utilized to ensure compliance with [facility] policy regarding Inpatient Admission and Observation Services. The definitions of Inpatient and Observation used in making the determination above are those provided in Medicare Benefit Policy Manual Chapter 1, Section 1 and 10, Chapter 6, Section 20, and the Medicare Claims Processing Manual Chapter 1, Section 50.3 and Chapter 4, Section 290. This recommendation should be considered as only one factor in determining the patient's final level of service along with other pertinent documentation such as the treating physician's order as documented evidence of concurrence. ALLIED HEALTH Observed: 09/20/2017 Status: COMPLETED Source: [place] 3:08 PM [facility] REPOSITORY HNO ID: [id number] Author: Ally KingRn) Bakari RN Service: Wound/Ostomy Author Type: Registered Nurse Type: Allied Health Filed: 09/20/2017 3:17 PM Note Text: ET/WOCN Nursing Consult Topic: ET/WOCN Consultation Note ET Outcome: patient to be seen for peristomal hernia. He has a well-documented hernia with chronic stomal prolapse. Stoma is red, moist and viable appearing as viewed through the pouch. He was found to be sitting in bed with pouch placed 4 days ago in the ED intact. He declined to have the pouch removed, but requested a additional pouch be prepared for home-going. Two extra pouches, precut large, Dara Hollihesive washers, and paste added to pt supplies. ET's Next Scheduled Visit: per patient changes weekly, discussed more frequent assessment and skin care, pt resistant to change today. Comment: RUQ loop colostomy - pt wearing intact Pouching System: Lyons Hollihesive washer cut in half with radial slits from 3-9 o'clock and from 9-3 o'clock, paste caulking, Coloplast post op window pouch. Time Increment: 30 minutes Ally Villegas, JULION, RN, CWOCN, RVT, WOC nursing WO Nursing - Please place consult via [facility]. Thank you. (M-F: [phone]; Weekends AND Holidays: [phone]). CNDS Observed: 09/20/2017 Status: COMPLETED Source: [place] 12:59 PM [facility] REPOSITORY HNO ID: [id number] Author: Vickie Isbell (Pa) Service: Colorectal Author Type: Physician Tool Grinder Operator Surface Type: Discharge Summaries Filed: 09/20/2017 9:10 PM Note Text: Attestation signed by Hannah Grant at 09/21/2017 9:21 AM This patient has a chronic hernia/stoma prolapse. As written previously, he should NOT be admitted to colorectal surgery unless he has a nicola surgical issue. He may follow up with Dr. Yoo as previously planned Hannah Grant MD, [facility] Staff Department of Colorectal Surgery [phone] DISCHARGE SUMMARY PATIENT NAME: Maxx Knott ADMISSION DATE: 09/20/2017 DISCHARGE DATE: 09/20/2017 Attending Physician: Hannah Grant Reason for Hospitalization: Mr. Knott is a 67 year old male with a history of sigmoid diverticulitis c/b perforation s/p diverting loop transverse colostomy with a known reducible peristomal hernia and prolapsing stoma with recurrent presentations for prolapsing stoma. This admission was for further medical management after he presented to an outside hospital with prolapsing stoma, abdominal pain, nausea and emesis. Active Problems: Abdominal pain Peristomal hernia Resolved Problems: * No resolved hospital problems. * Operations During Hospitalization: None Procedures During Hospitalization: No procedures performed Hospital Course: Mr. Knott is a 67 year old male who was transferred for further management from an outside hospital after presenting there with recurrent prolapsing stoma, abdominal pain, nausea and emesis. Upon admission, he was evaluated by Dr. Hannah Grant and no immediate surgical intervention was required. He continued to have appropriate colostomy function. The Wound/Ostomy nurses examined his stoma as well and provided him with additional supplies. His pain was controlled with oral and IV medication and his intake and output were closely monitored. His diet was advanced as tolerated. DVT prophylaxis was managed by Heparin 5000 units BID and intermittent compression stockings. His electrolytes were monitored with daily labs and replaced as needed. Once his pain was controlled with oral medication, he was tolerating a GI soft diet, and his stoma was functioning appropriately, he was deemed fit for discharge. He is to call the colorectal surgery line to schedule a follow-up appointment closer to [place]. Labs and Procedures Pending at Discharge: No pending results. Consulting Teams During Hospitalization: Wound/Ostomy Patient Condition @ Discharge: Stable Discharge Disposition: Home with Home Health Care Postoperative Conditions: Not Applicable Information Provided to Patient: The patient was provided with a detailed copy of discharge instructions. Discharge Medications: Discharge Medication List as of 09/20/2017 3:36 PM START taking these medications oxyCODONE IR (ROXICODONE) 5 mg immediate release tablet Take 1 tablet by mouth every 6 hours as needed for Pain for up to 3 days. Earliest Fill Date: 09/20/17 Print RX, Disp-12 tablet, R-0 Dx: 1. Generalized abdominal pain CONTINUE these medications which have NOT CHANGED isosorbide mononitrate ER (IMDUR) 60 mg 24 hr tablet Take 1 tablet by mouth once daily. Normal, Disp-30 tablet, R-0, Long-term vitamin B complex (B COMPLEX ORAL) Take 1 tablet by mouth once daily. Historical Med, Long-term aspirin, enteric coated (ASPIRIN, ENTERIC COATED) 81 mg EC tablet Take 81 mg by mouth once daily. Historical Med acetaminophen (TYLENOL) 325 mg tablet Take 1-2 tablets by mouth every 4 hours as needed for Pain. OTC cyclobenzaprine (FLEXERIL) 10 mg tablet Take 1 tablet by mouth at bedtime as needed for Muscle Spasm. Med Update, Long-term Dx: 1. Chronic low back pain, unspecified back pain laterality, with sciatica presence unspecified amLODIPine (NORVASC) 10 mg tablet Take 10 mg by mouth once daily. Historical Med loratadine 10 mg cap Take 1 capsule every day by oral route as needed Historical Med pravastatin (PRAVACHOL) 40 mg tablet Take 40 mg by mouth daily at bedtime. Historical Med gabapentin (NEURONTIN) 300 mg capsule Take 2 capsules by mouth daily at bedtime for 90 days. Normal, Disp-90 capsule, R-0, Long-term Dx: 1. Chronic low back pain, unspecified back pain laterality, with sciatica presence unspecified metoprolol succinate ER (TOPROL XL) 100 mg Tb24 Take 1 tablet by mouth once daily. Normal, Disp-90 tablet, R-4, Long-term QUEtiapine (SEROQUEL) 200 mg tablet Take 2 tablets by mouth daily at bedtime. Normal, Disp-60 tablet, R-0, Long-term !! COMPOUNDED PRESCRIPTION One Piece Ostomy Pouch Item Type: Coloplast Sensura One Piece Non-Sterile with Window 07/05-4 1/2'' ?5/Box ICD 10: Prolapsed Stoma K94.09 Print RX, Disp-1 Box, R-0 !! COMPOUNDED PRESCRIPTION Paste: Convatec Stomahesive 1 tube ICD 10: Prolapsed Stoma K 94.09 Print RX, Disp-1 Tube, R-0 MULTIVIT WITH IRON,MINERALS (MULTIVITAMIN AND MINERALS ORAL) Take 1 capsule by mouth once daily. Historical Med albuterol HFA (PROVENTIL HFA, VENTOLIN HFA) 90 mcg/actuation inhaler Inhale as instructed as needed. Historical Med fluticasone (FLONASE) 50 mcg/actuation nasal spray Use 1 [place] in the nose once daily as needed. Historical Med nitroglycerin sublingual (NITROSTAT) 0.[address] ONE(1) TABLET UNDER TONGUE NEEDED FOR CHEST PAIN. IF NO PAIN RELIEF CALL 911 Print RX, Disp-25 tablet, R-0 losartan (COZAAR) 100 mg tablet Take 100 mg by mouth once daily. Historical Med furosemide (LASIX) 20 mg tablet Take 40 mg by mouth once daily as needed. Historical Med !! - Potential duplicate medications found. Please discuss with provider. STOP taking these medications oxyCODONE-acetaminophen (PERCOCET) 10-325 mg tablet Comments: Reason for Stopping: Future Appointments: No future appointments. SIGNATURE: Vickie Isbell PA-C PAGER: [phone] DATE: September 20, 2017 TIME: 9:06 PM CASE MGT INIT Observed: 09/20/2017 Status: COMPLETED [facility] RE[facility] HNO ID: [id number] Author: Aida KingRn) MITCHELL Powell Service: Care Management Author Type: Registered Nurse Type: Care Mgt Initial Assessment Filed: 09/20/2017 2:43 PM Note Text: CARE MANAGEMENT: ASSESSMENT AND DISCHARGE PLAN SERVICE DATE: 09/20/2017 SERVICE TIME: 12:22 PM PRIMARY CARE PHYSICIAN: Bijan Perez MD ADMISSION STATUS: Inpatient Needs Prior to Discharge: To Be Determined MEDICAL: Patient/Home Comfort Advisor Stated Goals: To have reduction in pain To have reduction in symptoms To improve my functional status To return home to life as it was To be cured/healed Health Insurance: MEDICARE A AND B Medicare Health Issues Impacting Discharge Plan: Peristomal hernia Last Admission Date: Previous admit date: 08/16/2017 Is this Within the Past 30 days? No Advance Directive: Current Advance Directive: None Office Services Clerk Assisted with AD Completion: Yes Action: Patient Unwilling Health Literacy: 1. How often do you need to have someone help you when you read instructions, pamphlets, or other written material from your doctor or pharmacy? Never - 1 2. How confident are you filling out medical forms by yourself? Extremely - 1 If Patient scores > 3 on either question, the following interventions were put into place: Patient did not score > 3 FUNCTIONAL AND COGNITIVE/BEHAVIORAL PRIOR TO ADMISSION: Baseline Mental Status: Alert AND Oriented, Person, Place , Time and Situation Functional Status: Independent Does Patient Currently Receive Any Community Services or Home Care? None Equipment Prior to Admission: Bi-level Positive Airway Pressure/Continuous Positive Airway Pressure Cane - Straight Walker Has the Patient Been in a Half-Way Facility in the Past 30 days? No SOCIAL: Living Arrangement: Home Lives With: Brother Financial Resources: Retired Primary Contact: Extended Emergency Contact Information Primary Emergency Contact: Mary Knott Address: [address] [place] [address] OF [facility] Mobile Relation: Brother Supportive: Yes Other Important Patient Contacts: None Caregiver Assessment: Caregiver is ready, willing and able to meet the patient's needs as recommended by the inter-professional team? Yes Patient's transition needs and plan for meeting these needs: TBD Does the patient have an acute stroke diagnosis, or has the patient had a stroke during this admission? No Medication Adherence: I am convinced of the importance of my prescription medication: Agree completely - 0 I worry that my prescription medication will do more harm than good to me Disagree completely - 0 I feel financially burdened by my [id number]-mnuxms expenses for my prescription medication: Agree somewhat - 0 Patient is categorized as low risk < 2 Are you interested in bedside delivery of your medications? No Food Concerns: In the Last Month, Have You had Trouble Getting Food? No trouble getting food During the Last Month, Have You Worried Whether Your Food Would Run Out Before You Had Enough Money to Buy More? No Is the Patient Psychosocially Complex? No ASSESSMENT AND PLAN: Medical Needs: None Psychosocial Needs: None FREEDOM OF CHOICE EXPLAINED: Yes Patient Financial Disclosure Provided Preference: Resume with [facility] POTENTIAL TRANSITION PLANS Home Care Per Vickie FERRARA pg# [phone] anticipated discharge home with skilled home care for ostomy. Possible d/c later today after ostomy care. CM to bedside for introduction and to discuss discharge plans and needs. Patient lives an apartment with his brother, patient sated came to the hospital via ambulance, concern regarding transport home when discharged. Anticipated discharge plan is home, patient want to resume home care with [facility]. Pt denies any new questions or concerns at this time. CM will continue to follow and update on discharge plans and needs. Upon discharge CM will arrange for transport back home. SIGNATURE: Aida Powell RN PATIENT NAME: Maxx Knott DATE: September 20, 2017 TIME: 12:22 PM PAGER/CONTACT #: [phone] 2:38 PM Taylor Cazares to provide discharge transpor pickup today @ 4 pm. Nurse assigned to the patient and Vickie FERRARA aware. C DIFFICILE PCR Collected: 09/20/2017 Status: F Source: [place] 6:28 AM [facility] REPOSITORY TYPE CODE TESTS RESULT OUT OF REFERENCE UNITS RANGE LAB CDFRES C difficile PCR Negative for C. difficile toxin by PCR Performed By: #### CDPCR #### [facility] [address] [place], [place] [address] CBC AND DIFFERENTIAL Collected: 09/20/2017 Status: F Source: [place] 6:07 AM [facility] REPOSITORY TYPE CODE TESTS RESULT OUT OF REFERENCE UNITS RANGE LAB WBC 3.70-11.00 k/uL WBC 8.60 LAB RBC 4.20-6.00 m/uL RBC 4.27 LAB HGB 13.0-17.0 g/dL Low Hemoglobin 12.7 LAB HCT 39.0-51.0 % Low Hematocrit 38.3 LAB MCV 80.0-100.0 fL MCV 89.7 LAB MCH 26.0-34.0 pG MCH 29.7 LAB MCHC 30.5-36.0 g/dL MCHC 33.2 LAB RDWCV 11.5-15.0 % RDW-CV 13.2 LAB PLTCT 150-400 k/uL Platelet Count 283 LAB MPV 9.0-12.7 fL MPV 10.0 LAB ANEUT % Neut% 59.8 LAB AANEUT 1.45-7.50 k/uL Abs Neut 5.13 LAB ALYMP % Lymph% 29.0 LAB AALYMP 1.00-4.00 k/uL Abs Lymph 2.49 LAB AMONO % [place]% 8.7 LAB AAMONO <0.87 k/uL Abs [place] 0.75 LAB AEOS % Eosin% 2.0 LAB AAEOS <0.46 k/uL Abs Eosin 0.17 LAB ABASO % Baso% 0.5 LAB AABASO <0.11 k/uL Abs Baso 0.04 LAB AUNRBC 0 /100 WBC NRBCs 0.0 LAB ABNRBC <0.01 k/uL Absolute nRBC <0.01 LAB DTYP DTYPE Auto Diff Performed By: #### CBCDIF, PT, PTT, LACT, CMP, MG1, PHOS #### [facility] [address] [place], [place] [address] PROTIME Collected: 09/20/2017 Status: F Source: [place] 6:07 [facility] REPOSITORY TYPE CODE TESTS RESULT OUT OF RANGE REFERENCE UNITS LAB PSEC 9.7-13.0 sec PT Sec 11.8 LAB INR 0.9-1.3 PT INR 1.1 Result Comment: Vitamin K Antagonist (VKA) Therapeutic Range: INR 2 to 3 (Target INR of 2.5) Note: For patients treated with VKA drugs, such as warfarin, the [place] College [employer]icians 2012 Guideline recommends a therapeutic INR range of 2 to 3 (target INR of 2.5). This recommendation includes high-risk patients with antiphospholipid syndrome with previous arterial or venous thromboembolism, current-generation mechanical or bioprosthetic aortic heart valve replacement. Note: Patients with mechanical aortic valve replacement and additional risk factors for thromboembolic events (atrial fibrillation, previous thromboembolism, LV dysfunction, hypercoagulable conditions) or an older generation mechanical AVR (i.e., ball in-Cage) or any mechanical MVR should have a INR therapeutic range of 2.5 to 3.5 (target INR of 3). Lorelei GH, et al. Chest 2012, 141:7S-47S Teofilo RA, et al. [facility] 2017, 70: 252-289 Performed By: #### CBCDIF, PT, PTT, LACT, CMP, MG1, PHOS #### [facility] [address], [place] [address] APTT Collected: 09/20/2017 Status: F Source: [place] 6:07 [facility] REPOSITORY TYPE CODE TESTS RESULT OUT OF RANGE REFERENCE UNITS LAB APTT 23.0-32.4 sec APTT 27.4 Result Comment: Unfractionated Heparin Therapeutic Ranges: Standard Heparin Nomogram: 53 to 78 seconds (anti-Xa level of 0.3 to 0.7 U/ml) Low Dose/ACS Nomogram: 49 to 67 seconds (anti-Xa level of 0.2 to 0.5 U/ml) Stroke Treatment Nomogram: 49 to 67 seconds (anti-Xa level of 0.2 to 0.5 U/ml) Note: The APTT therapeutic range has been determined for the current lot of laboratory APTT reagent in use throughout the [facility]. Performed By: #### CBCDIF, PT, PTT, LACT, CMP, MG1, PHOS #### [facility] [address] [place], [place] [address] LACTATE Collected: 09/20/2017 Status: F Source: [place] 6:07 [facility] REPOSITORY TYPE CODE TESTS RESULT OUT OF REFERENCE UNITS RANGE LAB LACT 0.5-2.2 mmol/L Lactate 0.7 Performed By: #### CBCDIF, PT, PTT, LACT, CMP, MG1, PHOS #### [facility] [address] [place], [place] [address] COMP METABOLIC PANEL Collected: 09/20/2017 Status: F Source: [place] 6:07 [facility] REPOSITORY TYPE CODE TESTS RESULT OUT OF REFERENCE UNITS RANGE LAB TP 6.3-8.0 g/dL Protein, Total 6.4 LAB ALB 3.9-4.9 g/dL Albumin 3.9 LAB CA 8.5-10.2 mg/dL Calcium, Total 8.8 LAB TBIL 0.2-1.3 mg/dL Bilirubin, Total 0.4 LAB ALKP 36-108 U/L Alkaline Phosphatase 80 LAB AST 14-40 U/L AST 18 LAB GLU 74-99 mg/dL Glucose 88 Result Comment: The [place] Diabetes Association (ADA) provides guidance for cutoff values for fasting glucose and random glucose. The ADA defines fasting as no caloric intake for at least 8 hours. Fas ting plasma glucose results between 100 to 125 mg/dL indicate increased risk for diabetes (prediabetes). Fasting plasma glucose results greater than or equal to 126 mg/dL meet the criteria for diagnosis of diabetes. In the absence of unequivocal hyperglycemia, results should be confirmed by repeat testing. In a patient with classic symptoms of hyperglycemia or hyperglycemic crisis, random plasma glucose results greater than or equal to 200 mg/dL meet the criteria for diagnosis of diabetes. Reference: Standards of Medical Care in Diabetes 2016, [place] Diabetes Association. Diabetes Care. 2016.39(Suppl 1). LAB BUN 9-24 mg/dL BUN 13 LAB CRET 0.73-1.22 mg/dL Creatinine 0.92 LAB NA 136-144 mmol/L Sodium 143 LAB K 3.7-5.1 mmol/L Potassium Low 3.6 LAB CL 97-105 mmol/L Chloride 105 LAB CO2 22-30 mmol/L CO2 24 LAB AGAP 9-18 mmol/L Anion Gap 14 LAB ALT 10-54 U/L ALT 23 LAB GFRAA eGFR- Amer. >60 LAB GFRNAA . eGFR-All Other Races >60 Result Comment: eGFR (Estimated GFR) Units of measure: mL/min/1.73 meters squared eGFR is derived from the reexpressed MDRD Study equation using the following parameters: serum creatinine, age, gender and race. The creatinine assay has been calibrated to be traceable to IDMS. An eGFR <60 mL/min/1.73m2 for >3 months is consistent with chronic kidney disease. Refer to KDOQI guidelines for clinical interpretation. In patients with unstable renal function, e.g. those with acute kidney injury, the eGFR may not accurately reflect actual GFR. Performed By: #### CBCDIF, PT, PTT, LACT, CMP, MG1, PHOS #### [facility] [address] [place] [address] MAGNESIUM Collected: 09/20/2017 Status: F Source: [place] 6:07 AM [facility] REPOSITORY TYPE CODE TESTS RESULT OUT OF REFERENCE UNITS RANGE LAB MG 1.7-2.3 mg/dL Magnesium 2.0 Performed By: #### CBCDIF, PT, PTT, LACT, CMP, MG1, PHOS #### [place] [address] [place] [address] PHOSPHORUS Collected: 09/20/2017 Status: F Source: [place] 6:07 AM [facility] REPOSITORY TYPE CODE TESTS RESULT OUT OF REFERENCE UNITS RANGE LAB PHOS 2.7-4.8 mg/dL Phosphorus 2.7 Performed By: #### CBCDIF, PT, PTT, LACT, CMP, MG1, PHOS #### [place] [address] [place] [address] TYPE AND SCREEN Collected: 09/20/2017 Status: F Source: [place] 6:07 AM [facility] REPOSITORY TYPE CODE TESTS RESULT OUT OF REFERENCE UNITS RANGE LAB %ABR O ABO/RH(D) POSITIVE LAB % Antibody NEG Screen Performed By: #### TSCR #### [place] [address] [place] [address] NURSING PROG Observed: 09/20/2017 Status: COMPLETED Source: [place] 3:55 AM [facility] REPOSITORY HNO ID: [id number] Author: Aguila (Rn) MITCHELL Hay Service: (none) Author Type: Registered Nurse Type: Nursing Progress Note Filed: 09/20/2017 6:07 AM Note Text: Nursing Progress Note Patient Name: Maxx Knott Patient Location: [place] [address] Transfer Note: Patient transferred into room/unit 1-30 in stable condition. Actions taken: Oriented to room and call light. Educated on diet, meds, IS, PAS and nursing POC. Falls safety plan initiated and reviewed, bed alarm on at this time. Will continue to hourly round and monitor patient. This note was completed by: Aguila Hay RN HISTORY PHYSICAL Observed: 09/20/2017 Status: COMPLETED Source: [place] 3:46 AM [facility] REPOSITORY HNO ID: [id number] Author: Jessica Summers Service: General Surgery Author Type: Resident Type: HANDP Filed: 09/20/2017 7:28 AM Note Text: Attestation signed by Hannah Grant at 09/20/2017 8:04 AM Attending Note I evaluated the patient and personally participated in the nelson components. I agree with the resident's findings and plan with the following revisions and/or additions: Patient with another recurrence of peristomal hernia. He has stool output, abdomen is benign and he is hungry. This appears to be chronic in nature. Will advance diet. D/c home today if tolerates diet. Signature: Hannah Grant MD Date: 09/20/2017 Time: 8:04 AM [facility] CONSULT SERVICE DATE: 09/20/2017 SERVICE TIME: 3:46 AM BRIANNA Knott is a 67 year old male with a h/o CAD s/p CABG and PCI with GREY, AAA , ischemic cardiomyopathy (EF 50%, 03/2017), second degrees AV block s/p PPM , tobacco use, recurrent sigmoid diverticulitis c/b perforation s/p diverting loop transverse colostomy with a known reducible peristomal hernia and prolapsing stoma who presents with intermittent abdominal pain, nausea and emesis since 09/16. Pt reports falling on the ground on Saturday 09/16 hitting his abdomen and stoma with development of abdominal pain which prompted him to the go to the ED that day. At that visit, they reduced the hernia and he was subsequently discharged. Notes developing intermittent abdominal pain again after 09/16 with recurrence of hernia, associated nausea and emesis with representation to the ED on 09/18 and again on the 09/19 for similar c/o abdominal pain with hernia, nausea and emesis. CT there demonstrating peristomal hernia containing both large and small bowel with mid to proximal small bowel dilation. He was subsequently transferred here for further care and evaluation. ED labs unremarkable with no leukocytosis or lactic acidosis. During this period, he has been able to tolerate PO intake, last meal 09/19. His stoma output has increased with increasing loose stools as opposed to more firm. Usually changes the bag 1 x week. On admission to the ED 09/19 labs unremarkable with no leukocytosis or lactic acidosis. CT scan from 08/09/2017 demonstrates diverting colostomy with parastomal hernia containing small bowel which appears non obstructive and moderate diverticulosis of the sigmoid colon. Most recent CT when comparing shows similar small bowel hernia but with slight more dilation, no fluid or fat stranding. PAST MEDICAL HISTORY: PAST MEDICAL HISTORY Diagnosis Date - AAA (abdominal aortic aneurysm) without rupture (HCC) 05/13/[address] a/p - CAD (coronary artery disease) 2005 CAD s/p CABG x3 (PPUH-TSL-tgncfd, JND-JMG-clhodc, TDH-DS8-lqfowjkh) (2006 at [facility]) - Current every day smoker PT SMOKES A PIPE - Diverticulitis Perforated Diverticulitis - Diverticulitis of sigmoid colon 05/15/2017 Added automatically from request for surgery [id number] - Pacemaker 02/16/2017 s/p PPM () 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 - Peritonitis ([facility]) PAST SURGICAL HISTORY: PAST SURGICAL HISTORY Procedure Laterality Date - APPENDECTOMY HX - COLOSTOMY 07/2016 Diverting Loop Colostomy of the Transverse Colon - HEART SURGERY HX triple bypass 10 yrs ago - PPM IMPLANT - STENT - CORONARY REVIEW OF SYSTEMS General: No weight loss, malaise or fevers. HEENT: Negative for frequent or significant headaches. Neck: Negative for lumps, goiter, pain and significant neck swelling Respiratory: Negative for cough, wheezing. Positive for shortness of breath Cardiovascular: Negative for chest pain, leg swelling or palpitations. GI: abdominal pain, nausea, emesis : No history of dysuria, frequency and incontinence Musculoskeletal:Negative for joint pain or swelling, back pain, and muscle pain. Skin: Negative for lesions, rash, and itching. Hematology Negative for prolonged bleeding, bruising easily, and swollen nodes. Endocrine: Negative for cold or heat intolerance, polyuria, polydipsia and goiter. Neurology: No history of headaches,syncope,paralysis,seizures,tremors FAMILY HISTORY: FAMILY HISTORY Problem Relation Age of Onset - Coronary Artery Disease Father - Hyperlipidemia Father SOCIAL HISTORY: Social History Substance Use Topics - Smoking status: Current Every Day Smoker Packs/day: 0.50 Years: 35.00 Types: Pipe, Cigarettes - Smokeless tobacco: Never Used Comment: Quit cigarettes 11-16-16 now smoking 4 pipes as of 04-18-17 - Alcohol use No MEDICATIONS: Prior to Admission Medications: isosorbide mononitrate ER (IMDUR) 60 mg 24 hr tablet Take 1 tablet by mouth once daily. oxyCODONE-acetaminophen (PERCOCET) 10-325 mg tablet Take 1 tablet by mouth every 6 hours as needed. vitamin B complex (B COMPLEX ORAL) Take 1 tablet by mouth once daily. aspirin, enteric coated (ASPIRIN, ENTERIC COATED) 81 mg EC tablet Take 81 mg by mouth once daily. acetaminophen (TYLENOL) 325 mg tablet Take 1-2 tablets by mouth every 4 hours as needed for Pain. cyclobenzaprine (FLEXERIL) 10 mg tablet Take 1 tablet by mouth at bedtime as needed for Muscle Spasm. amLODIPine (NORVASC) 10 mg tablet Take 10 mg by mouth once daily. loratadine 10 mg cap Take 1 capsule every day by oral route as needed pravastatin (PRAVACHOL) 40 mg tablet Take 40 mg by mouth daily at bedtime. gabapentin (NEURONTIN) 300 mg capsule Take 2 capsules by mouth daily at bedtime for 90 days. metoprolol succinate ER (TOPROL XL) 100 mg Tb24 Take 1 tablet by mouth once daily. QUEtiapine (SEROQUEL) 200 mg tablet Take 2 tablets by mouth daily at bedtime. COMPOUNDED PRESCRIPTION One Piece Ostomy Pouch Item Type: Coloplast Sensura One Piece Non-Sterile with Window 38-4 1/2'' ?5/BoxICD 10: Prolapsed Stoma K94.09 COMPOUNDED PRESCRIPTION Paste: Convatec Stomahesive 1 tubeICD 10: Prolapsed Stoma K 94.09 MULTIVIT WITH IRON,MINERALS (MULTIVITAMIN AND MINERALS ORAL) Take 1 capsule by mouth once daily. albuterol HFA (PROVENTIL HFA, VENTOLIN HFA) 90 mcg/actuation inhaler Inhale as instructed as needed. fluticasone (FLONASE) 50 mcg/actuation nasal spray Use 1 [place] in the nose once daily as needed. nitroglycerin sublingual (NITROSTAT) 0.[address] ONE(1) TABLET UNDER TONGUE NEEDED FOR CHEST PAIN. IF NO PAIN RELIEF CALL 911 losartan (COZAAR) 100 mg tablet Take 100 mg by mouth once daily. furosemide (LASIX) 20 mg tablet Take 40 mg by mouth once daily as needed. No current hospital medications on file. ALLERGIES: ALLERGIES Allergen Reactions - Altaseptic Unknown - Brilinta [Ticagrelo* Unknown - Crestor [Rosuvastat* Myalgia - Hctz [Amiloride-Hyd* Swelling - Moxifloxacin Swelling - Other [place]-3s Unknown brelinta - Ramipril Swelling Other reaction(s): Facial swelling - Simvastatin Myalgia Other reaction(s): Facial swelling - Voltaren [Diclofena* Unknown PHYSICAL EXAM: Constitutional: No data found. General Appearance NAD , obese HEENT: NC/AT Eyes: sclera: anicteric, EOMI, PERRLA Neck: supple, no adenopathy Lungs: non labored respirations, symmetrical chest wall expansion Heart: RRR Abdomen: soft, non distended. Tender along the stoma but no rebound tenderness or peritoneal signs. Stoma pink with healthy mucosa, large peristomal hernia, attempted to reduce at bedside with partial success but quickly re -herniates after. Mildly tender when reducing but no ischemic changes to stoma. Extremities: no edema Assessment: 67 year old male with a h/o CAD s/p CABG and PCI with GREY, AAA , ischemic cardiomyopathy ( EF 50%, 03/2017), second degrees AV block s/p PPM , tobacco use, recurrent sigmoid diverticulitis c/b perforation s/p diverting loop transverse colostomy with a known reducible para-stomal hernia and prolapsing stoma who presents with 5 days duration of intermittent abdominal pain associated with recurrent stomal herniation, nausea, emesis and increased stomal loose output. CT scan from OSH with small and large bowel herniation in the stoma with mid to proximal small bowel dilation, when compared to previous scan in our system (07/2017), appears somewhat similar in appearance. No concerning aspects or appearance of the stoma for urgent surgical intervention. Plan: - STAT labs, LA - NPO, IVF - Restart home meds and BP meds - Pain control with PO - Telemetry - Will attempt to reduce stoma at bedside - Ice pack to the stoma, one time dose of IV pain for reduction - Ostomy nursing consult - please send C. diff - if unable to reduce will discuss about further options. Pt discussed with process automation engineer senior and with Dr. Grant SIGNATURE: MD Jessica Galan MD PATIENT NAME: Maxx Knott DATE: September 20, 2017 TIME: 3:46 AM EMERGENCY DEPARTMENT Observed: 09/20/2017 Status: F Source: [place] SUMMARY 1:24 AM [facility] RE[facility] Medical Records Department [address] [place] [address] Emergency Department Summary 09/20/17 0005 MR#: [id number] Acct: [id number] Name: MAXX KNOTT Rep #: [id number] : 1950 67 From: Gabriel Mandujano MD PCP: [place] [place] Status: REG ER - ER Visit Summary Date of Service: 09/20/17 Chief Complaint: Abdominal pain and chest pain History of Present Illness: The patient is a 67 M who goes to the [facility]. Patient reports that he has a history of a colostomy at [facility] 1 year ago for diverticulitis. 3 days ago he fell and had prolapsed through his hernia. He was seen in the emergency department and this resolved. He refused a CT at that time. Patient reports that yesterday the hernia prolapsed again. He was seen in emergency department and this reduced spontaneously and he went home. States today that the hernia is prolapsed again and this time he is unable to reduce it. He states he has pain that is an aching pain/10 severity. He has been nauseated and vomited one time. No blood in his emesis. She also complains of chest pain began approximately 2 hours ago while he was at rest. Is a substernal tightness. Is 7 out of 10 at worst and 510 currently. Is worsened by exertion relieved by remaining still. He reports that he has been short of breath and clammy with this. States that this is similar to when he has had problems with his heart in the past. His last heart catheterization was in October 2016 at [facility] and he got a stent. Physical Examination: Vitals: Stable. Afebrile. General: Well-nourished and well-developed. Head: Normocephalic atraumatic. Neck: Supple, no lymphadenopathy. No JVD. Nontender. Cardiovascular: Regular rate and rhythm. No murmurs. Respiratory: No respiratory distress. Clear to auscultation bilaterally. Abdominal: Soft, moderate tenderness in the right lower quadrant with herniated bowel through his stoma, nondistended, normal bowel sounds. No guarding, rebound, or peritoneal signs. Back: Nontender. Extremities: Nontender, 1+ pitting edema lower extremities bilaterally. Skin: Normal color, no rash. Neurologic: Alert and oriented 3. Cranial nerves II through XII are intact. Normal strength and sensation. Psych: Normal affect. Test Results: EKG is sinus at 72 with inferolateral T-wave inversions. Is unchanged from April of this year. Troponins negative. Chem-7 is normal. CBC is more for hematocrit 30.978 for 71. Lactic acid is 1.3. Chest x-ray shows chronic changes. Clinical Impression(s) from Imaging Studies Brain CT 09/19/17 18:56 IMPRESSION: Moderate periventricular white matter ischemic changes most pronounced in the parieto-occipital regions. Cannot exclude the possibility of PRES under appropriate clinical circumstances No mass or acute bleed Electronically Signed: Chele Mccullough MD at 20:31 EDT , Service support , Chest X-Ray 09/19/17 18:56 IMPRESSION: Postsurgical change. Mild COPD No acute cardiopulmonary pathology Electronically Signed: Chele Mccullough MD at 19:27 EDT , Service support , Abdomen/Pelvis CT 09/19/17 18:57 IMPRESSION: There is diffuse distention of the stomach and proximal to mid small bowel proximal to a stoma in the right lower quadrant containing both large and small bowel. The efferent loop of small bowel from the hernia is smaller caliber and partial small bowel obstruction cannot be entirely excluded.. There is no definitive evidence for incarceration. Recommend clinical correlation and follow-up Multiple other findings as above Electronically Signed: Chele Mccullough MD at 22:20 EDT , Service support , Emergency Department Course and Treatment: Patient was given aspirin p.o. Is given morphine and Zofran IV. He is resting comfortably. Treatment Plan: Patient was discussed with Dr. North. Given the fact the patient has chest pain he asked the patient be transferred to a tertiary care center. He was discussed with [facility] and will be transferred there for further evaluation and treatment. Disposition: Transferred in stable condition. Impression: 1. Stomal prolapse. 2. Partial small bowel obstruction. 3. Chest pain. 4. History of coronary artery disease. This note was generated with [employer] dictation software. It may contain incorrect words, spelling, and punctuation that were not noted in review of the chart prior to signing ED Disposition - Plan for ED Patient: Chief Complaint: Chest Pain Referrals: [facility] [Primary Care Provider] - What to do if you have Problems For any increased pain, shortness of breath, bleeding, nausea or vomiting, chest pain, or any unexpected problems, contact your Primary Care Provider. Call [facility] ([phone]) or report to the closest Emergency Room. Call 911 if necessary. 09/20/17 0124 <Electronically signed by Gabriel Mandujano MD> Date Gabriel Mandujano MD Cosigner Signature (If Indicated): Date CC: [facility] TROPONIN-I Collected: 09/19/2017 Status: F Source: [place] 11:31 PM [facility] RE[facility] Order Comment: 'TROP' Serial specimen #1, #2 or #3: 2 TYPE CODE TESTS RESULT OUT OF RANGE REFERENCE UNITS LAB L501.4010 <0.045 ng/mL Normal < 0.015 TROPONIN-I Result Comment: TROPONIN-I EXPECTED VALUES <0.045 Negative 0.045 - 0.590 Consistent with Cardiac Damage > OR = 0.600 Critical Value Not every elevated troponin is indicative of PA. These values should be used with clinical judgement in examining the patient's clinical picture for diagnosis. To establish a diagnosis of PA versus myocardial injury, there must be a demonstrated rise and/or fall in the troponin values, in addition to ischemic symptoms, EKG changes, new regional wall motion abnormality, and/or angiographical evidence. PLEASE NOTE: REFERENCE RANGES EDITED 17 Performed By: #### L501.4010 #### [facility] [place], [address] CBC W/DIFF, AUTOMATED Collected: 09/19/2017 Status: F Source: [place] 7:40 PM [facility] TYPE CODE TESTS RESULT OUT OF RANGE REFERENCE UNITS LAB L100.1000 4.4-11.0 K/mm3 Normal WBC 8.6 LAB L100.1200 4.6-6.2 M/mm3 Low RBC 4.33 LAB L100.1300 13.0-16.5 g/dl Normal HGB 13.1 LAB L100.1400 40-54 % Low HCT 38.9 LAB L100.1500 80-94 fL Normal MCV 89.8 LAB L100.1600 27.0-32.0 pg Normal MCH 30.3 LAB L100.1700 32-36 g/gl Normal MCHC 33.7 LAB L100.1810 11.6-14.6 % Normal RDW CV 13.4 LAB L100.1820 35.1-43.9 fl High RDW SD 44.0 LAB L100.1900 150-450 K/mm3 Normal PLT 323 LAB L100.2000 6.2-12.0 fl Normal MPV 9.8 LAB L100.2100 47-70 % High NEUT% 70.9 LAB L100.2200 19-41 % Normal LY% 20.7 LAB L100.2300 0-10 % Normal MONO% 7.5 LAB L100.2400 0-5 % Normal EO% 0.7 LAB L100.2500 0-1 % Normal BASO% 0.1 LAB L100.2550 0.0-0.9 % Normal IM GRAN % 0.100 Result Comment: IG% - Immature Granulocytes (promyelocytes, myelocytes and metamyelocytes) > 1% indicates that a LEFT SHIFT is Present. LAB L100.2620 2.0-7.7 X10 3/uL Normal Absolute Neut 6.1 LAB L100.2720 0.83-4.51 X10 3/ul Normal Absolute Lymph 1.79 Performed By: #### L100.0100 #### [facility] [address] [place], [address] BASIC METABOLIC Collected: 09/19/2017 Status: F Source: [place] PROFILE (BMP) 7:40 PM [facility] TYPE CODE TESTS RESULT OUT OF RANGE REFERENCE UNITS LAB L501.0100 74-106 mg/dL Normal GLU 100 Result Comment: Fasting Glucose result from 100 to 125 mg/dL suggests IMPAIRED HOMEOSTASIS per A.D.A. criteria. Please note revised GLUCOSE reference range effective 2017. LAB L501.1000 7-18 mg/dL Normal BUN 16 LAB L501.1100 0.70-1.30 mg/dL Normal CREAT,SERUM 1.10 Result Comment: The validity of the calculated GFR AND GFRAA in patients over 70 years has not been determined. Clinical correlation is essential. LAB L501.1110 >60 mL/min Normal EST GFR 71 Result Comment: Non- GFR Calc LAB L501.1115 >60 mL/min Normal EST GFR - AA 86 Result Comment: GFR Calc LAB L501.1255 ml/min Normal Estimated CRCL 63.91 LAB L501.1300 10-20 RATIO Normal BUN/CRE 14.5 LAB L501.2200 8.5-10 mg/dL Normal .1 CA 9.1 LAB L501.5300 136-14 mmol/L Normal 5 NA 141 LAB L501.5600 3.5-5. mmol/L Normal 1 K 4.0 LAB L501.5900 98-107 mmol/L Normal CL 107 LAB L501.6100 21.0-3 mmol/L Normal 2.0 CO2 29.0 LAB L501.6200 5-15 Normal GAP 5 Performed By: #### L500.2500, L501.4010 #### [facility] [address] [facility] [place], [address] TROPONIN-I Collected: 09/19/2017 Status: F Source: [place] 7:40 PM [facility] TYPE CODE TESTS RESULT OUT OF RANGE REFERENCE UNITS LAB L501.4010 <0.045 ng/mL Normal < 0.015 TROPONIN-I Result Comment: TROPONIN-I EXPECTED VALUES <0.045 Negative 0.045 - 0.590 Consistent with Cardiac Damage > OR = 0.600 Critical Value Not every elevated troponin is indicative of PA. These values should be used with clinical judgement in examining the patient's clinical picture for diagnosis. To establish a diagnosis of PA versus myocardial injury, there must be a demonstrated rise and/or fall in the troponin values, in addition to ischemic symptoms, EKG changes, new regional wall motion abnormality, and/or angiographical evidence. PLEASE NOTE: REFERENCE RANGES EDITED 17 Performed By: #### L500.2500, L501.4010 #### [facility] [address] [facility]. [place], [place], [address] LACTIC ACID Collected: 09/19/2017 Status: F Source: [place] 7:40 PM [facility] Order Comment: Yes/No query for Sepsis Lactate Rule Y TYPE CODE TESTS RESULT OUT OF RANGE REFERENCE UNITS LAB L503.6005 0.4-2.0 mmol/L Normal LACTIC ACID 1.3 Performed By: #### L503.6005 #### [facility] [address] [place], [place], [address] CHEST 1 VIEW Observed: 09/19/2017 Status: F Source: [place] (PORTABLE) 6:58 PM [facility] Imaging Services [address] [place] [address] Chest 1 View (Portable) MR#: [id number] Acct: [id number] Name: MAXX KNOTT Rep #: [id number] : 1950 M 67 From: Chele Mccullough MD PCP: [place] [place] Status: PRE ER Study: Chest 1 View (Portable) Date of Exam: 09/19/17 Exam# [id number] Ordering Dr: Gabriel Mandujano MD STUDY: X-RAY CHEST REASON FOR EXAM: Male, 67 years old. Short of breath TECHNIQUE: AP portable COMPARISON: May 03, 2017 FINDINGS: There is mild hyperinflation and prominent interstitial thickening at the lung bases. There is no demonstrated pleural abnormality. Heart is upper normal size.. Normal mediastinum and irene. Normal visualized pulmonary arteries. Normal visualized aortic arch and descending thoracic aorta. Pacer noted on the left with electrodes in satisfactory position Normal visualized thoracic spine. Normal visualized ribs, clavicles, and shoulders. Postop change status post median sternotomy and CABG. 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 RAD/Chest 1 View (Portable) IMPRESSION: Postsurgical change. Mild COPD No acute cardiopulmonary pathology Electronically Signed: Chele Mccullough MD at 19:27 EDT , Service support , CC: [facility]; Gabriel Mandujano MD Prep Room Supervisor: Signed BRAIN/HEAD WITHOUT Observed: 09/19/2017 Status: F Source: [place] CONTRAST 6:58 PM [facility] Imaging Services [address] [address] Brain/Head without Contrast MR#: [id number] Acct: [id number] Name: MAXX KNOTT Rep #: [id number] : 1950 M 67 From: Chele Mccullough MD PCP: [place] [place] Status: REG ER Study: Brain/Head without Contrast Date of Exam: 09/19/17 Exam# [id number] Ordering Dr: Gabriel Mandujano MD STUDY: CT BRAIN WITHOUT CONTRAST REASON FOR EXAM: Male, 67 years old. Headache RADIATION DOSAGE (If Supplied By Facility): CTDIvol = ( 44.99 ) mGy, DLP = ( 796.11 ) mGycm TECHNIQUE: Transaxial CT imaging of the brain was performed without administration of intravenous contrast material. Individualized dose optimization techniques were used for this CT. COMPARISON: None. FINDINGS: Normal soft tissue structures. Normal calvarium. Normal size ventricles and extra-axial spaces for the patient's age. Moderate periventricular white matter ischemic changes more pronounced in the parieto-occipital regions.. Normal basal ganglia and thalami. Normal brainstem. Normal cerebellum. There is no intracranial hemorrhage. There are no findings of an acute ischemic infarction. There is mild mucosal thickening of left maxillary and bilateral ethmoid sinuses. Bilateral scleral calcification is seen within the orbits CT/Brain/Head without Contrast IMPRESSION: Moderate periventricular white matter ischemic changes most pronounced in the parieto-occipital regions. Cannot exclude the possibility of PRES under appropriate clinical circumstances No mass or acute bleed Electronically Signed: Chele Mccullough MD at 20:31 EDT , Service support , CC: [facility]; Gabriel Mandujano MD Prep Room Supervisor: Signed ABDOMEN/PELVIS WITH Observed: 09/19/2017 Status: F Source: [place] CONTRAST 6:58 PM [facility] Imaging Services [address] [place] [address] Abdomen/Pelvis WITH Contrast MR#: [id number] Acct: [id number] Name: MAXX KNOTT Rep #: [id number] : 1950 M 67 From: Chele Mccullough MD PCP: [place] [place] Status: REG ER Study: Abdomen/Pelvis WITH Contrast Date of Exam: 09/19/17 Exam# [id number] Ordering Dr: Gabriel Mandujano MD STUDY: CT ABDOMEN AND PELVIS WITH CONTRAST REASON FOR EXAM: Male, 67 years old. Stomal hernia pain RADIATION DOSAGE (If Supplied By Facility): CTDIvol = ( 17.20 ) mGy, DLP = ( 1031.69 ) mGycm TECHNIQUE: Transaxial images were obtained from the dome of the diaphragm to the symphysis pubis without oral contrast. 100 ml of Isovue 300 contrast was administered. Sagittal and coronal images were reconstructed. Individualized dose optimization techniques were used for this CT. COMPARISON: December 20, 2016 FINDINGS: There is mild interstitial thickening in the left lower lobe. There is a tiny calcified granuloma at left base.. The visualized portions of the heart are within normal limits. Liver is fatty infiltrated without mass or bile duct dilatation. Normal gallbladder and extrahepatic biliary system. Normal spleen. Normal pancreas. There is diffuse thickening of the left adrenal consistent with hyperplasia. The right adrenal is normal. No evidence for renal obstruction or ureteral calculus. There is a simple cyst in left kidney. Dilatation of the stomach and proximal to mid small bowel.. Diffuse diverticular disease of the descending and sigmoid colon without evidence for acute diverticulitis. Appendix not visualized which may be consistent with prior appendectomy. There are postsurgical changes status post stoma in the right lower quadrant with peristomal hernia containing both large and small bowel. The efferent loop of small bowel is smaller caliber and possibility of partial small bowel obstruction cannot be entirely excluded Multilobulated infrarenal aortic aneurysm maximum dimension of approximately 2.95 x 3.15 cm Normal inferior vena cava. Normal retroperitoneum. Nonspecific enlargement of the prostate impinging upon the base of the bladder which is mildly diffusely thick-walled Normal abdominal wall. Lumbar spine demonstrates advanced spondylosis. CT/Abdomen/Pelvis WITH Contrast IMPRESSION: There is diffuse distention of the stomach and proximal to mid small bowel proximal to a stoma in the right lower quadrant containing both large and small bowel. The efferent loop of small bowel from the hernia is smaller caliber and partial small bowel obstruction cannot be entirely excluded.. There is no definitive evidence for incarceration. Recommend clinical correlation and follow-up Multiple other findings as above Electronically Signed: Chele Mccullough MD at 22:20 EDT , Service support , CC: [facility]; Gabriel Mandujano MD Prep Room Supervisor: Signed SR-BRAIN/HEAD WITHOUT Observed: 09/19/2017 Status: F Source: [place] CONTRAST IMPORT 12:00 AM [facility] REPOSITORY Images were obtained outside of [facility] [id number] CR-CHEST 1 VIEW Observed: 09/19/2017 Status: F Source: [place] (PORTABLE) IMPORT 12:00 AM [facility] REPOSITORY Images were obtained outside of [facility] [id number] SR-ABDOMEN/PELVIS WITH Observed: 09/19/2017 Status: F Source: [place] CONTRAST IMPORT 12:00 AM [facility] REPOSITORY Images were obtained outside of [facility] [id number] EMERGENCY DEPARTMENT Observed: 09/18/2017 Status: F Source: [place] 5:37 PM [facility] REPOSITORY [facility] Medical Records Department [address] [place] [id number] Emergency Department Summary 09/18/17 1455 MR#: [id number] Acct: [id number] Name: MAXX KNOTT Rep #: [id number] : 1950 67 From: Chele Smith MD PCP: [place] [place] Status: DEP ER - ER Visit Summary Date of Service: 09/18/17 Chief Complaint: Pain at abdominal ostomy site. History of Present Illness: The patient is a 67 M history of CAD, COPD, diverticular lordosis, appendectomy, partial colectomy with a right lower quadrant ostomy. Patient complaining of abdominal pain since this morning the ostomy site with the bowel protruding through the ostomy. Nausea but no vomiting. No other abdominal pain. His ostomy is still putting out gas and stool. No blood. Denies any fever. This is happened other times in the past. He was seen this past weekend for similar. He states he is going to have a revision ostomy site but he has to wait due to cardiac stents were placed in the last year. Physical Examination: Older male no acute distress. Vital signs are stable afebrile. He does not look septic toxic. H EENT exam unremarkable neck nontender lungs clear to auscultation bilaterally. Heart regular rate and rhythm no murmur. Abdomen soft nondistended normal bowel sounds. He is bowel prep shooting through his right lower quadrant ostomy. There is no blood. There is loose brown stool and gas in the ostomy bag. Mildly tender to site. There is no signs of bowel obstruction. No peritoneal signs. Moving all 4 extremities. Neurologically is awake and alert. Test Results: None Emergency Department Course and Treatment: Patient treated with IV morphine and Zofran. He was laid flat on his back. On repeat exam at 1455 his bowel that protruded through his ostomy is spontaneously reducing the area soft and no longer tender. His abdomen remains completely benign without any signs of obstruction. There is no distention. Soft. Nontender. He has bowel sounds. Treatment Plan: [facility] Disposition: dc Impression: Acute abdominal Pain Bowel Herniation through Right Lower Quadrant Ostomy that spontaneously resolved This note was generated with Atosho dictation software. It may contain incorrect words, spelling, and punctuation that were not noted in review of the chart prior to signing ED Disposition - Plan for ED Patient: Chief Complaint: Abd Pain [facility] [[facility] Provider] - What to do if you have Problems For any increased pain, shortness of breath, bleeding, nausea or vomiting, chest pain, or any unexpected problems, contact your Primary Care Provider. Call [facility] ([phone]) or report to the closest Emergency Room. Call 911 if necessary. 09/18/17 8961 <Electronically signed by Chele Smith MD> Date Chele Smith MD Cosigner Signature (If Indicated): Date CC: [facility] DISCHARGE INSTRUCTION Observed: 09/18/2017 Status: F Source: [place] 5:37 PM [facility] RE[facility]ITORY [facility] Medical Records Department [address] [place] [address] Discharge Instruction 09/18/17 1501 MR#: [id number] Acct: [id number] Name: MAXX KNOTT Rep #: [id number] : 1950 67 From: Chele Smith MD PCP: [facility], [place] Status: DEP ER ED Disposition - Plan for ED Patient: Disposition: Home or Assisted Living Chief Complaint: Abd Pain Referrals: [facility] [Primary Care Provider] - As soon as possible Additional Instructions: Follow up with the [place] If this re-0ccurs lay flat on your back until it resolves What to do if you have Problems For any increased pain, shortness of breath, bleeding, nausea or vomiting, chest pain, or any unexpected problems, contact your Primary Care Provider. Call [facility] ([phone]) or report to the closest Emergency Room. Call 911 if necessary. 09/18/17 1737 <Electronically signed by Chele Smith MD> Date Chlee Smith MD Cosigner Signature (If Indicated): Date CC: [facility] DISCHARGE INSTRUCTION Observed: 09/16/2017 Status: F Source: [place] 9:50 PM [facility] RE[facility]IT[facility] Medical Records Department [address] [place] [address] Discharge Instruction 09/16/17 2148 MR#: [id number] Acct: [id number] Name: MAXX KNOTT Rep #: [id number] : 1950 67 From: Torsten Garcia DO PCP: [facility], [place] Status: REG ER ED Disposition - Plan for ED Patient: Chief Complaint: Wound Instructions: ED Abdominal Pain Unkn Cause Referrals: [facility] [Primary Care Provider] - Additional Instructions: see your surgeon within the next 3-5 days, use your binder, return if worsening pain, prolapse, bloody stool, or condition worsens What to do if you have Problems For any increased pain, shortness of breath, bleeding, nausea or vomiting, chest pain, or any unexpected problems, contact your Primary Care Provider. Call [facility] ([phone]) or report to the closest Emergency Room. Call 911 if necessary. 09/16/172149 <Electronically signed by Torsten Garcia DO> Date Torsten Garcia DO Cosigner Signature (If Indicated): Date CC: [facility] EMERGENCY DEPARTMENT Observed: 09/16/2017 Status: F Source: [place] 9:48 PM [facility] RE[facility]ITORY [facility] Medical Records Department [address] [place] [address] Emergency Department Summary 09/16/17 2145 MR#: [id number] Acct: [id number] Name: MAXX KNOTT Rep #: [id number] : 1950 67 From: Torsten Garcia DO PCP: [place] [place] Status: REG ER - ER Visit Summary Date of Service: 09/16/17 Chief Complaint: [Bret herniation] History of Present Illness: The patient is a 67 M [presents to the emergency department with complaint of a fall onto his abdomen causing his stoma to herniate. Patient has had a history of colostomy related to diverticulitis and partial bowel resection. Patient has had problems in the past with the addition of stoma. Patient complains of abdominal pain. Patient denies any fever. He denies any cough.] Physical Examination: [HEENT-PERRLA, EOMI. Cranial nerves II through XII grossly intact. TMs clear. Mucous membranes moist. No adenopathy. Cardiovascular-regular rate and rhythm without murmur or ectopy Lungs-clear to auscultation, chest wall stable without crepitus or subcu emphysema Abdomen-normoactive bowel sounds, soft. Patient does have a colostomy in the lower abdomen with colon herniating centrally. Area slightly tender to palpation. No blood noted. There is stool within the colostomy bag. Extremities-intact 4, normal range of motion, normal pulses, atraumatic] Test Results: [CBC with differential obtained showed a white blood cell count of 7.8, hemoglobin 12.9, hematocrit 39, platelets 299. Chemistries unremarkable. Emergency Department Course and Treatment: [Patient received a milligram of Dilaudid IV as well as 4 mg Zofran. I was able to reduce the herniated colon and patient had good pain relief. I ordered a CT scan of the abdomen to evaluate further however patient is refusing being that his symptoms are now resolved and is concerned about the financial implications of having a CAT scan. Patient is requesting to be discharged home and states that he will return if symptoms worsen.] Treatment Plan: [Discharged to home and advised to follow- up with the surgeon within next 3-5 days.] Disposition: [Discharged home in stable condition] Impression: [Colostomy prolapse/herniation-reduced] This note was generated with Atosho dictation software. It may contain incorrect words, spelling, and punctuation that were not noted in review of the chart prior to signing ED Disposition - Plan for ED Patient: Chief Complaint: Wound Referrals: [facility] [Primary Care Provider] - What to do if you have Problems For any increased pain, shortness of breath, bleeding, nausea or vomiting, chest pain, or any unexpected problems, contact your Primary Care Provider. Call [facility] ([phone]) or report to the closest Emergency Room. Call 911 if necessary. 09/16/17 214 <Electronically signed by Torsten Garcia DO> Date Torsten Garcia DO Cosigner Signature (If Indicated): Date CC: [facility] CBC W/DIFF, AUTOMATED Collected: 09/16/2017 Status: F Source: [place] 8:30 PM [facility] REPOSIT[facility] TYPE CODE TESTS RESULT OUT OF RANGE REFERENCE UNITS LAB L100.1000 4.4-11.0 K/mm3 Normal WBC 7.8 LAB L100.1200 4.6-6.2 M/mm3 Low RBC 4.28 LAB L100.1300 13.0-16.5 g/dl Low HGB 12.9 LAB L100.1400 40-54 % Low HCT 38.8 LAB L100.1500 80-94 fL Normal MCV 90.7 LAB L100.1600 27.0-32.0 pg Normal MCH 30.1 LAB L100.1700 32-36 g/gl Normal MCHC 33.2 LAB L100.1810 11.6-14.6 % Normal RDW CV 13.6 LAB L100.1820 35.1-43.9 fl High RDW SD 44.9 LAB L100.1900 150-450 K/mm3 Normal PLT 299 LAB L100.2000 6.2-12.0 fl Normal MPV 9.8 LAB L100.2100 47-70 % Normal NEUT% 67.8 LAB L100.2200 19-41 % Normal LY% 23.6 LAB L100.2300 0-10 % Normal MONO% 7.0 LAB L100.2400 0-5 % Normal EO% 1.2 LAB L100.2500 0-1 % Normal BASO% 0.1 LAB L100.2550 0.0-0.9 % Normal IM GRAN % 0.300 Result Comment: IG% - Immature Granulocytes (promyelocytes, myelocytes and metamyelocytes) > 1% indicates that a LEFT SHIFT is Present. LAB L100.2620 2.0-7.7 X10 3/uL Normal Absolute Neut 5.3 LAB L100.2720 0.83-4.51 X10 3/ul Normal Absolute Lymph 1.83 Performed By: #### L100.0100 #### [facility] [address] [place], [place], [id number] BASIC METABOLIC Collected: 09/16/2017 Status: F Source: [place] PROFILE (BMP) 8:30 PM [facility] RE[facility]IT[facility] TYPE CODE TESTS RESULT OUT OF RANGE REFERENCE UNITS LAB L501.0100 74-106 mg/dL Normal GLU 106 Result Comment: Fasting Glucose result from 100 to 125 mg/dL suggests IMPAIRED HOMEOSTASIS per A.D.A. criteria. Please note revised GLUCOSE reference range effective 2017. LAB L501.1000 7-18 mg/dL Normal BUN 17 LAB L501.1100 0.70-1.30 mg/dL Normal CREAT,SERUM 0.92 Result Comment: The validity of the calculated GFR AND GFRAA in patients over 70 years has not been determined. Clinical correlation is essential. LAB L501.1110 >60 mL/min Normal EST GFR 87 Result Comment: Non- GFR Calc LAB L501.1115 >60 mL/min Normal EST GFR - AA 105 Result Comment: GFR Calc LAB L501.1255 ml/min Normal Estimated CRCL 76.41 LAB L501.1300 10-20 RATIO Normal BUN/CRE 18.4 LAB L501.2200 8.5-10 mg/dL Normal .1 CA 9.1 LAB L501.5300 136-14 mmol/L Normal 5 NA 143 LAB L501.5600 3.5-5. mmol/L Normal 1 K 4.0 LAB L501.5900 98-107 mmol/L Normal CL 104 LAB L501.6100 21.0-3 mmol/L Normal 2.0 CO2 29.0 LAB L501.6200 5-15 Normal GAP 10 Performed By: #### L500.2500 #### [facility] [address] [place], [address] ALLIED HEALTH Observed: 09/14/2017 Status: COMPLETED Source: [place] 5:07 PM [facility] REPOSITORY HNO ID: [id number] Author: Vianney (Rn) MITCHELL Key Service: Wound/Ostomy Author Type: Registered Nurse Type: Allied Health Filed: 09/14/2017 5:41 PM Note Text: ET/WOCN Nursing Consult Topic: ET/WOCN Consultation Note ET Outcome : Consulted for patient in the ED for pouch change. Upon opening the abdominal binder, pouch has already exploded with stool and stool was all over the abdomen in a cake shape almost more than 2 lb. Thick hard stool was sitting on top of abdomen held by binder. Patient stated that he doesn't remember when the pouch was changed last time and stating that he did not empty his pouch as well for a long time. Home care nurse phone number given during previous ED visit and given again at this visit to patient for helping with pouch. Dory visiting nurse [phone]. Advised to call tomorrow morning, if any problems advised to contact Dr. Yoo's office for assistance. With patient's permission, picture taken. ET's Next Scheduled Visit: as needed ? Stoma Type: loop colostomy Diameter: approximately 4cm x 6 cm Location: RUQ Protrusion: Prolapsed Mucosal condition and color: Red and moist Mucocutaneous junction Intact Peristomal Skin: Erythema, Denuded and Fungal rash Location of Skin Impairment: fungal rash circumferentially, denuded circumferentially close to stoma, erythema scattered. Peristomal contour: Combination rounded, deep derpession from 3-9 o'clock Supportive Tissue: Soft Character of output: thick stool Emptying frequency per day: not assessed Current pouching system: Coloplast Post Op window pouch patient Current wearing time: unknown Recommendations: Skin Care: Domeboro's soak, antifungal powder, stomahesive powder Pouching System: Dara Hollihesive washer cut in half with radial slits from 3-9 o'clock and from 9-3 o'clock, paste caulking, Coloplast post op window pouch (as patient requested this pouch -stating it is easy for him to empty). Wear Time: 3-7 days Midline Abdominal Incision: Healed scar Comment: Education given to empty often and contact home care nurse. Time Increment: 1 hour 15 minutes ? ? ED PROV NOTE Observed: 09/14/2017 Status: COMPLETED Source: [place] 5:07 PM [facility] REPOSITORY O ID: [id number] Author: Dian Mancera) ALEM Serrato Service: Emergency Medicine Author Type: Physician Tool Grinder Operator Surface Type: ED Provider Notes Filed: 09/14/2017 5:53 PM Note Text: ED Provider Note Patient Name: Maxx Knott SERVICE DATE: 09/14/17 History Patient presents with: Fall: tripped over carpet Ostomy Care: pouch needs to be changed 67-year-old male with past medical history of coronary artery disease, diverticulitis status post colostomy, pacemaker in place presents to the emergency department for a fall daycare today. Patient states he woke up this morning and tripped over a bump in the carpet in his home. Patient states he fell onto his stomach and onto his ostomy bag. He states he is having abdominal pain around the area of the stoma that began after the fall. Patient states his bowels have been moving without difficulty. He does endorse mild nausea at this time. He denies any episodes of vomiting. He denies any fevers or chills. Patient states he did not strike his head during the fall and denies any other areas of pain. 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 - Peritonitis ([facility]) PAST SURGICAL HISTORY Procedure Laterality Date - APPENDECTOMY HX - COLOSTOMY 07/2016 Diverting Loop Colostomy of the Transverse Colon - HEART SURGERY HX triple bypass 10 yrs ago - PPM IMPLANT - STENT - CORONARY FAMILY HISTORY Problem Relation Age of Onset - Coronary Artery Disease Father - Hyperlipidemia Father Social History Social History Main Topics - Smoking status: Current Every Day Smoker Packs/day: 0.50 Years: 35.00 Types: Pipe, Cigarettes - Smokeless tobacco: Never Used Comment: Quit cigarettes 11-16-16 now smoking 4 pipes as of 04-18-17 - Alcohol use No - Drug use: No - Sexual activity: Not Currently ALLERGIES Allergen Reactions - Altaseptic Unknown - Brilinta [Ticagrelo* Unknown - Crestor [Rosuvastat* Myalgia - Hctz [Amiloride-Hyd* Swelling - Moxifloxacin Swelling - Other [place]-3s Unknown brelinta - Ramipril Swelling Other reaction(s): Facial swelling - Simvastatin Myalgia Other reaction(s): Facial swelling - Voltaren [Diclofena* Unknown Review of Systems Constitutional: Negative for chills and fever. Respiratory: Negative for shortness of breath. Cardiovascular: Negative for chest pain. Gastrointestinal: Positive for abdominal pain and nausea. Negative for constipation, diarrhea and vomiting. Genitourinary: Negative for dysuria and frequency. Skin: Negative for wound. Neurological: Negative for dizziness and headaches. Physical Exam BP 140/52 Pulse 90 Temp (Src) 97.7 (Oral) Resp 18 Ht 5' 8 (1.73m) Wt 195 lb (88.5kg) SpO2 99% BMI 29.66 kg/(m2). Physical Exam Constitutional: Vital signs are normal. He appears well-developed and well-nourished. He is active. Non-toxic appearance. He does not have a sickly appearance. He does not appear ill. No distress. HENT: Head: Normocephalic and atraumatic. Eyes: Conjunctivae are normal. Neck: Normal range of motion. Cardiovascular: Normal rate, regular rhythm, S1 normal, S2 normal and normal heart sounds. No murmur heard. Pulmonary/Chest: Effort normal and breath sounds normal. No accessory muscle usage. No respiratory distress. He has no decreased breath sounds. He has no wheezes. He has no rhonchi. He has no rales. Abdominal: Soft. There is tenderness. There is no rigidity, no rebound and no guarding. Colostomy bag broken and copious fecal material noted to the patient's clothing and abdominal binder. Stoma is pink with pink prolapsed tissue exhibiting peristaltic waves. Area is appropriately tender to palpation. Mild tenderness to palpation of the abdomen without rebound, rigidity or guarding. Skin: Skin is warm, dry and intact. Capillary refill takes less than 2 seconds. No rash noted. He is not diaphoretic. Psychiatric: He has a normal mood and affect. His behavior is normal. Judgment and thought content normal. Nursing note and vitals reviewed. Diagnostic Testing ED Labs Ordered and Reviewed COMP METABOLIC PANEL - Abnormal; Notable for the following: Result Value Ref Range Glucose 112 (*) 74 - 99 mg/dL All other components within normal limits CBC + DIFF Procedures Medical Decision Making MDM ED Course / Clinical Impression Vital signs were reviewed. Triage records and medical records were reviewed. Nursing notes were reviewed and incorporated. ? 67-year-old male with past medical history of coronary artery disease, diverticulitis status post colostomy, pacemaker in place presents to the emergency department for a fall daycare today. Pt is afebrile and hemodynamically stable, well-appearing , and non-toxic. Pt given zofran and morphine while in ED with significant imporvement. On re-evaluation, patient is resting comfortably in NAD. Pt requested stoma nurse to see him and change his bag. Stoma nurse was consulted and did change the patient's stoma. She expressed concerns about the patient not performing stoma care at home as his bag and abdominal binder were overflowing with fecal material, and patient is frequently presenting to the ED for stoma care. At this time, the most likely Dx is colostomy in place, colostomy prolapse. Pt discharged home, given information to follow up with ostomy clinic by the ostomy nurse. The importance of appropriate following up was expressed to the patient. Patient encouraged to return to ED immediately if symptoms worsen and/or new symptoms develop. Patient expressed understanding and is amendable to this course of action. Patient understood suspected diagnosis and instruction. No barriers of communication were apparent and I answered all questions. ? Clinical Impressions as of Sep [address] (HCC) Colostomy prolapse (HCC) Plan The patient was DISCHARGED: Counseled patient regarding suspected diagnosis AND need for follow-up. Discharged home with verbal and written instructions. They were instructed to return as needed for persistent or worsening symptoms or any new concerns. Condition at time of disposition: stable SIGNATURE: CORINNA Guzman (Alem) ALEM Serrato 09/14/171752 ED NOTE Observed: 09/14/2017 Status: COMPLETED Source: [place] 5:06 PM [facility] REPOSITORY HNO ID: [id number] Author: Angelo (Rn) MITCHELL Brice Service: Emergency Medicine Author Type: Registered Nurse Type: ED Notes Filed: 09/14/2017 5:06 PM Note Text: CBC AND DIFFERENTIAL Collected: 09/14/2017 Status: F Source: [place] 3:10 PM [facility] REPOSITORY TYPE CODE TESTS RESULT OUT OF REFERENCE UNITS RANGE LAB WBC 3.70-11.00 k/uL WBC 8.46 LAB RBC 4.20-6.00 m/uL RBC 4.48 LAB HGB 13.0-17.0 g/dL Hemoglobin 13.5 LAB HCT 39.0-51.0 % Hematocrit 40.9 LAB MCV 80.0-100.0 fL MCV 91.3 LAB MCH 26.0-34.0 pG MCH 30.1 LAB MCHC 30.5-36.0 g/dL MCHC 33.0 LAB RDWCV 11.5-15.0 % RDW-CV 13.5 LAB PLTCT 150-400 k/uL Platelet Count 314 LAB MPV 9.0-12.7 fL MPV 10.0 LAB ANEUT % Neut% 70.0 LAB AANEUT 1.45-7.50 k/uL Abs Neut 5.90 LAB ALYMP % Lymph% 19.0 LAB AALYMP 1.00-4.00 k/uL Abs Lymph 1.61 LAB AMONO % [place]% 8.2 LAB AAMONO <0.87 k/uL Abs [place] 0.69 LAB AEOS % Eosin% 2.6 LAB AAEOS <0.46 k/uL Abs Eosin 0.22 LAB ABASO % Baso% 0.2 LAB AABASO <0.11 k/uL Abs Baso <0.03 LAB AUNRBC 0 /100 WBC NRBCs 0.0 LAB ABNRBC <0.01 k/uL Absolute nRBC <0.01 LAB DTYP DTYPE Auto Diff Performed By: #### CBCDIF, CMP #### [facility] [address] [place], [place] [address] COMP METABOLIC PANEL Collected: 09/14/2017 Status: F Source: [place] 3:10 PM [facility] REPOSITORY TYPE CODE TESTS RESULT OUT OF REFERENCE UNITS RANGE LAB TP 6.3-8.0 g/dL Protein, Total 7.4 LAB ALB 3.9-4.9 g/dL Albumin 4.3 LAB CA 8.5-10.2 mg/dL Calcium, Total 9.6 LAB TBIL 0.2-1.3 mg/dL Bilirubin, Total 0.2 LAB ALKP 36-108 U/L Alkaline Phosphatase 95 LAB AST 14-40 U/L AST 18 LAB GLU 74-99 mg/dL Glucose High 112 Result Comment: The [place] Diabetes Association (ADA) provides guidance for cutoff values for fasting glucose and random glucose. The ADA defines fasting as no caloric intake for at least 8 hours. Fas ting plasma glucose results between 100 to 125 mg/dL indicate increased risk for diabetes (prediabetes). Fasting plasma glucose results greater than or equal to 126 mg/dL meet the criteria for diagnosis of diabetes. In the absence of unequivocal hyperglycemia, results should be confirmed by repeat testing. In a patient with classic symptoms of hyperglycemia or hyperglycemic crisis, random plasma glucose results greater than or equal to 200 mg/dL meet the criteria for diagnosis of diabetes. Reference: Standards of Medical Care in Diabetes 2016, [place] [employer] Association. Diabetes Care. 2016.39(Suppl 1). LAB BUN 9-24 mg/dL BUN 14 LAB CRET 0.73-1.22 mg/dL Creatinine 0.99 LAB NA 136-144 mmol/L Sodium 143 LAB K 3.7-5.1 mmol/L Potassium 4.5 LAB CL 97-105 mmol/L Chloride 102 LAB CO2 22-30 mmol/L CO2 28 LAB AGAP 9-18 mmol/L Anion Gap 13 LAB ALT 10-54 U/L ALT 21 LAB GFRAA eGFR- Amer. >60 LAB GFRNAA . eGFR-All Other Races >60 Result Comment: eGFR (Estimated GFR) Units of measure: mL/min/1.73 meters squared eGFR is derived from the reexpressed MDRD Study equation using the following parameters: serum creatinine, age, gender and race. The creatinine assay has been calibrated to be traceable to IDMS. An eGFR <60 mL/min/1.73m2 for >3 months is consistent with chronic kidney disease. Refer to KDOQI guidelines for clinical interpretation. In patients with unstable renal function, e.g. those with acute kidney injury, the eGFR may not accurately reflect actual GFR. Performed By: #### CBCDIF, CMP #### [facility] [address] [place], [place] [address] PROGRESS Observed: 09/13/2017 Status: COMPLETED Source: [place] 9:07 AM [facility] REPOSITORY O ID: [id number] Author: Winston Leal Pharm-T Service: (none) Author Type: (none) Type: Progress Notes Filed: 09/13/2017 9:07 AM Note Text: TRANSITION CARE MANAGEMENT (TCM) INITIAL CONTACT Provider Action/FYI: ? Unable to complete medication history Patient unable to be reached after two or more unsuccessful outreach attempts. No further attempts to contact patient will be made. SUMMARY: -Pt discharged from [place] on 09/11/17. -Follow up appointment on None. -Medication review not done. -Admitted for SOB Winston Leal Pharm-T September 13, 2017 9:07 AM RUTH Observed: 09/12/2017 Status: COMPLETED Source: [place] 12:00 AM [facility] REPOSITORY Patient Outreach (PHRXRF) MAXX KNOTT ([id number]) 1950 M Date Time Provider Department 09/12/17 CHEL CRAIG PHARMD PHRXRF During your visit today, we recorded the following information about you: Winston Leal Pharm-T 09/13/2017 9:07 AM Signed TRANSITION CARE MANAGEMENT (TCM) INITIAL CONTACT Provider Action/FYI: ? Unable to complete medication history Patient unable to be reached after two or more unsuccessful outreach attempts. No further attempts to contact patient will be made. SUMMARY: -Pt discharged from [place] on 09/11/17. -Follow up appointment on None. -Medication review not done. -Admitted for SOB Winston Leal Pharm-T September 13, 2017 9:07 AM Allergies As of Date: 09/12/2017 Noted Allergy Reaction ALTASEPTIC 12/17/2016 16 - Unknown BRILINTA (TICAGRELOR) 08/09/2017 16 - Unknown CRESTOR (ROSUVASTATIN CALCIUM) 12/17/2016 17 - Myalgia HCTZ (AMILORIDE-HYDROCHLOROTHIAZI*12/17/2016 7 - Swelling MOXIFLOXACIN 7 - Swelling OTHER OMEGA-3S 07/06/2017 16 - Unknown Comments: brelinta RAMIPRIL 12/17/2016 7 - Swelling Comments: Other reaction(s): Facial swelling SIMVASTATIN 12/17/2016 17 - Myalgia Comments: Other reaction(s): Facial swelling VOLTAREN (DICLOFENAC SODIUM) 12/17/2016 16 - Unknown Date Reviewed: 09/09/2017 Reviewed by: Dolores (Rn) MITCHELL Bourgeois - Fully Assessed Reason for Visit: Transition Of Care [4074] Cmt: Hospital Discharge 09/11/17 Prescriptions as of 09/12/2017 Sig: ISOSORBIDE MONONITRATE ER 60 * Take 1 tablet by mouth once d* OXYCODONE-ACETAMINOPHEN 10 MG* Take 1 tablet by mouth every * B COMPLEX ORAL Take 1 tablet by mouth once d* ASPIRIN 81 MG TABLET,DELAYED * Take 81 mg by mouth once dominik* ACETAMINOPHEN 325 MG TABLET Take 1-2 tablets by mouth antwan* CYCLOBENZAPRINE 10 MG TABLET Take 1 tablet by mouth at bed* AMLODIPINE 10 MG TABLET Take 10 mg by mouth once dominik* LORATADINE 10 MG CAPSULE Take 1 capsule every day by o* PRAVASTATIN 40 MG TABLET Take 40 mg by mouth daily at * GABAPENTIN 300 MG CAPSULE Take 2 capsules by mouth dominik* METOPROLOL SUCCINATE ER 100 M* Take 1 tablet by mouth once d* QUETIAPINE 200 MG TABLET Take 2 tablets by mouth daily* COMPOUNDED PRESCRIPTION One Piece Ostomy Pouch Item T* COMPOUNDED PRESCRIPTION Paste: Convatec Stomahesive * MULTIVITAMIN AND MINERALS ORAL Take 1 capsule by mouth once * ALBUTEROL SULFATE HFA 90 MCG/* Inhale as instructed as neede* FLUTICASONE 50 MCG/ACTUATION * Use 1 [place] in the nose once * NITROGLYCERIN 0.4 MG SUBLINGU* PLACE ONE(1) TABLET UNDER TON* LOSARTAN 100 MG TABLET Take 100 mg by mouth once roddy* FUROSEMIDE 20 MG TABLET Take 40 mg by mouth once dominik* Problem List As Of Date 09/12/2017 Noted Resolved 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 Chest pain [R07.9] INVALID FOR* Priority: A More... Hypertensive crisis [I16.9] INVALID FOR* Priority: B More... Healthcare maintenance [Z00.00] INVALID FOR* Priority: M More... Malnutrition of mild degree (HCC) [E44.1] INVALID FOR* Priority: L More... CHF (congestive heart failure) ([facility]) [I50.9] INVALID FOR* Diverticulitis of sigmoid colon [K57.32] INVALID FOR* Class: Recurrent More... Chronic systolic congestive heart failure (HCC)*INVALID FOR* Priority: J More... CAD (coronary artery disease) [I25.10] INVALID FOR* Priority: K More... Hypertensive heart disease with congestive hear*INVALID FOR* Priority: K Hypocalcemia [E83.51] INVALID FOR*06/19/2017 Hypernatremia [E87.0] INVALID FOR*06/19/2017 Hypokalemia [E87.6] INVALID FOR*06/19/2017 Parastomal hernia without obstruction or gangre*INVALID FOR* Abdominal aortic aneurysm without rupture (HCC)*INVALID FOR* Renal cysts, acquired, bilateral [N28.1] INVALID FOR* Arthritis [M19.90] INVALID FOR* Anxiety disorder [F41.9] INVALID FOR* Essential hypertension [I10] INVALID FOR* Nicotine use disorder, F17.2 [F17.200] INVALID FOR* Melena [K92.1] INVALID FOR* Fall [W19.XXXA] INVALID FOR* Abdominal pain [R10.9] INVALID FOR* Encounter Status:Closed by WINSTON VÁSQUEZ on 09/13/17 ED PROV NOTE Observed: 09/11/2017 Status: COMPLETED Source: [place] 2:21 PM CLINIC OTHER CAMPUS REPOSITORY O ID: [id number] Author: Rich Rogers MD Service: Emergency Medicine Author Type: Physician Type: ED Provider Notes Filed: 09/13/2017 2:13 PM Note Text: ED Provider Note Patient Name: Maxx Knott SERVICE DATE: 09/09/17 History Patient presents with: Shortness of Breath: States CP/SOB for 1 hour. Midsternal pain, no cough. No radiation. Some relief with NTG. +chills. +nausea. Also states his colostomy bag broke. Hx of PA with CABG. HPI Patient is a 67-year-old with a past medical history of coronary artery disease status post CABG, AAA, diverticulitis status post abscess and colectomy status post colostomy Who presents for chest pain and colostomy and she is. Patient states that the chest pain and shortness of breath started for approximately one hour. He states the pain is midsternal without radiation. He states this feels like when he required CABG previously in the past. He endorses some relief with nitroglycerin. He denies any fever, endorses nausea. He endorses that he is also having issues with his colostomy bag and severe abdominal pain. He states he had a ton of output with his colostomy. He denies any blood in stool. 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 - Peritonitis ([facility]) PAST SURGICAL HISTORY Procedure Laterality Date - APPENDECTOMY HX - COLOSTOMY 07/2016 Diverting Loop Colostomy of the Transverse Colon - HEART SURGERY HX triple bypass 10 yrs ago - PPM IMPLANT - STENT - CORONARY FAMILY HISTORY Problem Relation Age of Onset - Coronary Artery Disease Father - Hyperlipidemia Father Social History Social History Main Topics - Smoking status: Current Every Day Smoker Packs/day: 0.50 Years: 35.00 Types: Pipe, Cigarettes - Smokeless tobacco: Never Used Comment: Quit cigarettes 11-16-16 now smoking 4 pipes as of 04-18-17 - Alcohol use No - Drug use: No - Sexual activity: Not Currently ALLERGIES Allergen Reactions - Altaseptic Unknown - Brilinta [Ticagrelo* Unknown - Crestor [Rosuvastat* Myalgia - Hctz [Amiloride-Hyd* Swelling - Moxifloxacin Swelling - Other [place]-3s Unknown brelinta - Ramipril Swelling Other reaction(s): Facial swelling - Simvastatin Myalgia Other reaction(s): Facial swelling - Voltaren [Diclofena* Unknown Review of Systems Constitutional: Negative for activity change and appetite change. HENT: Negative for congestion and dental problem. Eyes: Negative for discharge and itching. Respiratory: Positive for shortness of breath. Negative for apnea and chest tightness. Cardiovascular: Negative for chest pain and leg swelling. Gastrointestinal: Positive for abdominal pain and nausea. Negative for abdominal distention, blood in stool and vomiting. Endocrine: Negative for cold intolerance and heat intolerance. Genitourinary: Negative for difficulty urinating and dysuria. Musculoskeletal: Negative for arthralgias and back pain. Skin: Negative for color change and pallor. Allergic/Immunologic: Negative for environmental allergies and food allergies. Neurological: Negative for dizziness and facial asymmetry. Hematological: Negative for adenopathy. Does not bruise/bleed easily. Psychiatric/Behavioral: Negative for agitation and behavioral problems. Physical Exam BP 130/56 Pulse 68 Temp (Src) 97.7 (Oral) Resp 18 Ht 5' 8 (1.73m) Wt 195 lb (88.5kg) SpO2 97% BMI 29.66 kg/(m2). Physical Exam Constitutional: He is oriented to person, place, and time. He appears well-developed and well-nourished. No distress. HENT: Head: Normocephalic and atraumatic. Nose: Nose normal. Mouth/Throat: Oropharynx is clear and moist. Eyes: EOM are normal. Pupils are equal, round, and reactive to light. Neck: Normal range of motion. Neck supple. Cardiovascular: Normal rate, regular rhythm and normal heart sounds. Pulmonary/Chest: Effort normal and breath sounds normal. No respiratory distress. Abdominal: Soft. Bowel sounds are normal. He exhibits distension. There is no guarding. Hernia of stoma present. Normal colostomy output Musculoskeletal: Normal range of motion. He exhibits no edema or deformity. Neurological: He is alert and oriented to person, place, and time. Skin: Skin is warm and dry. Nursing note and vitals reviewed. Diagnostic Testing ED Labs Ordered and Reviewed CBC + AUTO DIFF (AK,AV,EU,FV,HL,DEMARCO,MM,SP) - Abnormal; Notable for the following: Result Value Ref Range WBC 9.16 (*) 4.23 - 9.07 thou/cmm RBC 4.31 (*) 4.63 - 6.08 mil/cmm HGB 13.2 (*) 13.7 - 17.5 g/dL RDW-SD 46.5 (*) 36.1 - 45.8 fl Seg. Neut. # 6.82 (*) 1.78 - 5.38 thou/cmm All other components within normal limits BASIC METABOLIC PANEL (AK,AV,EU,FV,HL,DEMARCO,MM,SP) - Abnormal; Notable for the following: Anion Gap 7 (*) 8 - 16 All other components within normal limits ECU TROPONIN I (AK ED) PROBNP N-TERMINAL (AK,AV,EU,FV,HL,DEMARCO,MM,SP) MDRD GFR Procedures Medical Decision Making MDM ED Course / Clinical Impression Clinical Impressions as of September 13 1215 Chest pain, unspecified type Intestinal stoma prolapse (HCC) Assessment: Maxx Knott is a 67 year old male who presents with chest pain Differential Diagnosis: ACS, pneumonia, PE, GERD, PTX Plan: CBC, Chem 7, Troponin EKG Chest Xray BNP ED Course/MDM: Patient arrived hemodynamically stable and in no acute distress. Chest xray clear with no signs of pna as interpreted by me. I reviewed the medical record looking for old stress tests and caths. I have reviewed the patients labs including their troponin levels. Concerns for a cardiac cause of chest pain. ECG evaluated and shows No acute ST segment elevations or depressions. Plan is for serial cardiac enzymes and ANDREW with possible stress testing versus admission. High risk chest pain based on previous pattern of coronary artery disease. Patient RA tech 324 mg of aspirin. Clinically concerned about ACS in this patient. Patient does not have any acute ECG changes nor do they have any increase in their troponin level at this time. Patient is pain free with morphine. However, in light of the risk factors present and the clinical presentation, the patient would benefit from a rule out with serial biomarkers, telemetry monitoring. Will admit the patient to accomplish these goals. Patient's colostomy he has been seen for multiple times. Surgical consult can be added on as needed inpatient. Plan The patient was ADMITTED TO: Regular nursing floor. Condition at time of disposition: stable SIGNATURE: MD Elke Briones (Res) MD Pina Resident 09/13/17 1239 Rich Rogers MD 09/13/17 1413 PROGRESS Observed: 09/11/2017 Status: COMPLETED Source: [place] 2:03 PM CLINIC OTHER CAMPUS REPOSITORY HNO ID: [id number] Author: Luana KingRn) MITCHELL Sawyer Service: Wound/Ostomy Author Type: Registered Nurse Type: Progress Notes Filed: 09/11/2017 2:06 PM Note Text: WOUND CARE NURSE PROGRESS NOTE SERVICE DATE: 09/11/2017 SERVICE TIME: 1337 REASON FOR VISIT: Ostomy TIME SPENT (minutes): 30 Documentation from Wound Expert can be found in scanned documents. tube rebuilder paged for pouch leaking. Pouch changed to RUQ colostomy. Supplies in room. Patient to be discharged today. tube rebuilder to follow until discharge. SIGNATURE: Luana Sawyer RN PATIENT NAME: Maxx Knott DATE: September 11, 2017 TIME: 2:03 PM CONTACT#: [id number] CNDS Observed: 09/11/2017 Status: COMPLETED Source: [place] 1:40 PM CLINIC OTHER CAMPUS REPOSITORY HNO ID: [id number] Author: Jarocho Dougherty Service: Hospital Medicine Author Type: Physician Type: Discharge Summaries Filed: 09/11/2017 1:40 PM Note Text: DISCHARGE SUMMARY PATIENT NAME: Maxx Knott Admission Information Admission Information ADMIT DATE: 09/09/2017 DISCHARGE DATE: 09/11/2017 MY DOCTORS AND MEDICAL TEAM: My Main Hospital Doctor: Jarocho Dougherty Primary Care Provider: Bijan Perez MD My Medical Team Members: Treatment Team: Attending Provider: Jarocho Dougherty Primary Service: Tom Shultz Consulting: Gene Mejía Consulting: Johnny Camargo MY CONDITION AT DISCHARGE: Stable REASON I WAS IN THE HOSPITAL: chest pain SUMMARY OF WHAT HAPPENED WHILE I WAS IN THE HOSPITAL: Patient was admitted for chest pain. He came in with pressure like and dull retrosternal chest pain. His EKG was negative for acute ischemia and troponin was negative. She was evaluated by straightening machine operator. He had hx of CAD s/p CABG and PCI with GREY to LAD in 02/13 and negative lexiscan stress test a month ago. Given his atypical nature of chest pain, no further ischemic work up was suggested. Imdur was added. He has diverting Loop Transverse Colostomy with a known parastomal hernia and prolapsing stoma. No any acute intervention was needed. She needs to follow up with her general surgeon at [facility] main campus for reversal. OTHER PROBLEMS/DIAGNOSIS: Principal Problem: Chest pain Active Problems: Colostomy prolapse (HCC) Chronic systolic congestive heart failure (HCC) CAD (coronary artery disease) Essential hypertension Abdominal pain Resolved Problems: * No resolved hospital problems. * OPERATIONS PERFORMED WHILE IN THE HOSPITAL: IMPORTANT TEST/PROCEDURES: No procedures performed TEST RESULTS NOT AVAILABLE AT THIS TIME: No pending results Discharge Disposition Discharge Disposition: Home With Self Care Activity When You Leave the Hospital Resume pre-hospital activity Diet Instructions Resume your pre-hospital diet Follow Up Appointments Follow-Up Appointment When: In 2 weeks Patient/Parents to call for appointment?: Yes Poonam Riley [phone], [place] [address] [facility] [address] PCP Requested Referral Follow-Up Appointment Follow up as per appointment or sooner as needed. With: Colorectal surgeon When: In: - november 2017 Patient/Parents to call for appointment?: Yes Follow-Up Appointment - Your PCP When: In 1 week Patient/Parents to call for appointment?: Yes Viral (Res) Ordonez [phone] [address] [facility] [address] PCP Requested Referral Follow-Up Appointment - Your PCP With: Your PCP When: In 1 week Patient/Parents to call for appointment?: Yes Additional Provider to Provider Information: He came in with pressure like and dull retrosternal chest pain. His EKG was negative for acute ischemia and troponin was negative. She was evaluated by straightening machine operator. He had hx of CAD s/p CABG and PCI with GREY to LAD in 02/13 and negative lexiscan stress test a month ago. Given his atypical nature of chest pain, no further ischemic work up was suggested. Imdur was added. He has diverting Loop Transverse Colostomy with a known parastomal hernia and prolapsing stoma. No any acute intervention was needed. FOLLOW-UP APPOINTMENTS ALREADY SCHEDULED WITH A [facility] PROVIDER: No future appointments. DISCHARGE MEDICATION: Current Discharge Medication List START taking these medications isosorbide mononitrate ER (IMDUR) 60 mg Take 60 mg by mouth once daily. Qty: 30 tablet Refills: 0 CONTINUE these medications which have NOT CHANGED oxyCODONE-acetaminophen (PERCOCET 10) 1 tablet Take 1 tablet by mouth every 6 hours as needed. vitamin B complex (B COMPLEX ORAL) 1 tablet Take 1 tablet by mouth once daily. aspirin, enteric coated (ASPIRIN, ENTERIC COATED) 81 mg Take 81 mg by mouth once daily. acetaminophen (TYLENOL) 325-650 mg Take 325-650 mg by mouth every 4 hours as needed for Pain. cyclobenzaprine (FLEXERIL) 10 mg Take 10 mg by mouth at bedtime as needed for Muscle Spasm. Associated Diagnoses:Chronic low back pain, unspecified back pain laterality, with sciatica presence unspecified amLODIPine (NORVASC) 10 mg Take 10 mg by mouth once daily. loratadine 10 mg cap Take 1 capsule every day by oral route as needed pravastatin (PRAVACHOL) 40 mg Take 40 mg by mouth daily at bedtime. gabapentin (NEURONTIN) 600 mg Take 600 mg by mouth daily at bedtime. Qty: 90 capsule Refills: 0 Associated Diagnoses:Chronic low back pain, unspecified back pain laterality, with sciatica presence unspecified metoprolol succinate ER (TOPROL XL) 100 mg Take 100 mg by mouth once daily. Qty: 90 tablet Refills: 4 QUEtiapine (SEROquel) 400 mg Take 400 mg by mouth daily at bedtime. Qty: 60 tablet Refills: 0 !! COMPOUNDED PRESCRIPTION One Piece Ostomy Pouch Item Type: Coloplast Sensura One Piece Non-Sterile with Window 38-4 1/2'' ?5/Box ICD 10: Prolapsed Stoma K94.09 Qty: 1 Box Refills: 0 !! COMPOUNDED PRESCRIPTION Paste: Convatec Stomahesive 1 tube ICD 10: Prolapsed Stoma K 94.09 Qty: 1 Tube Refills: 0 MULTIVIT WITH IRON,MINERALS (MULTIVITAMIN AND MINERALS ORAL) 1 capsule Take 1 capsule by mouth once daily. albuterol HFA (PROVENTIL HFA, VENTOLIN HFA) 90 mcg/actuation inhaler Inhale as instructed as needed. fluticasone (FLONASE) 1 [place] Use 1 [place] in the nose once daily as needed. nitroglycerin sublingual (NITROSTAT) 0.[address] ONE(1) TABLET UNDER TONGUE NEEDED FOR CHEST PAIN. IF NO PAIN RELIEF CALL 911 Qty: 25 tablet Refills: 0 losartan (COZAAR) 100 mg Take 100 mg by mouth once daily. furosemide (LASIX) 40 mg Take 40 mg by mouth once daily as needed. !! - Potential duplicate medications found. Please discuss with provider. Discharge Physical Exam: VITAL SIGNS: BP 130/56 Pulse 68 Temp 36.5 ?C (97.7 ?F) (Oral) Resp 18 Ht 172.7 cm (5' 8) Wt 88.5 kg (195 lb) SpO2 97% BMI 29.65 kg/m? GENERAL: Alert, no distress, cooperative, SKIN: Skin color, texture, turgor normal. No rashes or lesions. OROPHARYNX: Lips, mucosa, and tongue normal. Teeth and gums normal. Oropharynx normal. LUNGS: Lungs clear to auscultation, Air entry good, Unlabored breathing. CARDIAC: Normal S1 and S2; no rubs, murmurs, or gallops ABDOMEN: Abdomen soft, non-tender, non-distended, BS normal. Colostomy present. EXTREMITIES: Normal, no deformities, edema, clubbing or skin discoloration. NEURO: Grossly normal cognition, motor function, and cranial nerves III-XII TIME OF CARE: Discharge Management: I personally spent less than 30 minutes involved in the discharge management of this patient. SIGNATURE: Jarocho Dougherty MD PAGER/CONTACT #: DATE: September 11, 2017 TIME: 1:40 PM CONSULT Observed: 09/11/2017 Status: COMPLETED Source: [place] 11:47 AM CLINIC OTHER CAMPUS REPOSITORY HNO ID: [id number] Author: Tj Hawley Service: General Surgery Author Type: Physician Type: Consults Filed: 09/11/2017 1:43 PM Note Text: GENERAL SURGERY CONSULT SERVICE DATE: 09/11/2017 SERVICE TIME: 11:48 AM ========= GENERAL SURGERY STAFF: I discussed the management of this case with the surgery resident team and independently confirmed the findings and plan of care as documented either attached or in their separate note from today. Any corrections or additional notes are made as needed. Active Hospital Problems Diagnosis Date Noted - Chest pain 04/01/2017 Priority: A - Colostomy prolapse (HCC) 01/05/2017 Priority: Very Severe Chronic - Chronic systolic congestive heart failure (HCC) 05/15/2017 Priority: J Chronic Overview Note: EF=47% April 2017 Added automatically from request for surgery [id number] - CAD (coronary artery disease) 05/16/2017 Priority: K Chronic Overview Note: Nuclear stress test >>No ischemia. EF=47% 2017 - Abdominal pain 08/16/2017 - Essential hypertension 07/22/2017 Chronic Assessment and Plan: Reducible non-obstructing parastomal hernia Outpatient f/u as planned. Tj Hawley MD, FACS Section of Trauma, Surgery Critical Care, and Acute Care Surgery Pager: [phone] Office: [phone] September 11, 2017 ========= REASON FOR CONSULT: Parastomal Hernia REQUESTING PHYSICIAN: Luciano PRIMARY CARE PHYSICIAN: Bijan Perez MD Subjective HISTORY OF PRESENT ILLNESS: Mr. Knott is a 67 year old male with an extensive PMH who is admitted with Atypical Chest Pain. Patient has a known recurrent sigmoid diverticulitis s/p Diverting Loop Transverse Colostomy performed at an OSH with a known parastomal hernia and prolapsing stoma. Patient is known to the Colorectal Surgery service at [facility] and has failed to follow up with them on numerous occasions. Patient states his stoma prolapses often an reduces on its own. Worse with coughing and straining. Denies obstructive symptoms. + SOB, CP, AP, N Denies fever, chills, V, D, C, Obstipation, Dysuria, Hematuria, Melena, Hematochezia FUNCTIONAL STATUS: Independent PAST MEDICAL HISTORY Diagnosis Date - AAA (abdominal aortic aneurysm) without rupture (HCC) 05/13/[address] a/p - CAD (coronary artery disease) 2005 CAD s/p CABG x3 ([id number]-UFE-klwszb, OSB-ZTK-telxhr, AWJ-DO6-iddbswbl) (2005 at [place]) - Current every day smoker PT SMOKES A PIPE - Diverticulitis Perforated Diverticulitis - Diverticulitis of sigmoid colon 05/15/2017 Added automatically from request for surgery [id number] - Pacemaker 02/16/2017 s/p PPM ([facility]) 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 - Peritonitis (HCC) PAST SURGICAL HISTORY Procedure Laterality Date - APPENDECTOMY HX - COLOSTOMY 07/2016 Diverting Loop Colostomy of the Transverse Colon - HEART SURGERY HX triple bypass 10 yrs ago - PPM IMPLANT - STENT - CORONARY FAMILY HISTORY Problem Relation Age of Onset - Coronary Artery Disease Father - Hyperlipidemia Father Social History Substance Use Topics - Smoking status: Current Every Day Smoker Packs/day: 0.50 Years: 35.00 Types: Pipe, Cigarettes - Smokeless tobacco: Never Used Comment: Quit cigarettes 11-16-16 now smoking 4 pipes as of 04-18-17 - Alcohol use No Prescriptions Prior to Admission: oxyCODONE-acetaminophen (PERCOCET) 10-325 mg tablet Take 1 tablet by mouth every 6 hours as needed. Disp: Rfl: vitamin B complex (B COMPLEX ORAL) Take 1 tablet by mouth once daily. Disp: Rfl: aspirin, enteric coated (ASPIRIN, ENTERIC COATED) 81 mg EC tablet Take 81 mg by mouth once daily. Disp: Rfl: acetaminophen (TYLENOL) 325 mg tablet Take 1-2 tablets by mouth every 4 hours as needed for Pain. Disp: Rfl: cyclobenzaprine (FLEXERIL) 10 mg tablet Take 1 tablet by mouth at bedtime as needed for Muscle Spasm. Disp: Rfl: 08/14/2017 at 2200 amLODIPine (NORVASC) 10 mg tablet Take 10 mg by mouth once daily. Disp: Rfl: 08/14/2017 at 2000 loratadine 10 mg cap Take 1 capsule every day by oral route as needed Disp: Rfl: Unknown at Unknown time pravastatin (PRAVACHOL) 40 mg tablet Take 40 mg by mouth daily at bedtime. Disp: Rfl: 08/14/2017 at 2200 gabapentin (NEURONTIN) 300 mg capsule Take 2 capsules by mouth daily at bedtime for 90 days. Disp: 90 capsule Rfl: 0 08/14/2017 at 2200 metoprolol succinate ER (TOPROL XL) 100 mg Tb24 Take 1 tablet by mouth once daily. Disp: 90 tablet Rfl: 4 08/14/2017 at 0800 QUEtiapine (SEROQUEL) 200 mg tablet Take 2 tablets by mouth daily at bedtime. Disp: 60 tablet Rfl: 0 08/14/2017 at 2200 COMPOUNDED PRESCRIPTION One Piece Ostomy Pouch Item Type: Coloplast Sensura One Piece Non-Sterile with Window 07/05-05/01'' ?5/BoxICD 10: Prolapsed Stoma K94.09 Disp: 1 Box Rfl: 0 Past Week at Unknown time COMPOUNDED PRESCRIPTION Paste: Convatec Stomahesive 1 tubeICD 10: Prolapsed Stoma K 94.09 Disp: 1 Tube Rfl: 0 Past Week at Unknown time MULTIVIT WITH IRON,MINERALS (MULTIVITAMIN AND MINERALS ORAL) Take 1 capsule by mouth once daily. Disp: Rfl: 08/14/2017 at 0800 albuterol HFA (PROVENTIL HFA, VENTOLIN HFA) 90 mcg/actuation inhaler Inhale as instructed as needed. Disp: Rfl: Unknown at Unknown time fluticasone (FLONASE) 50 mcg/actuation nasal spray Use 1 [place] in the nose once daily as needed. Disp: Rfl: 08/14/2017 at 2200 nitroglycerin sublingual (NITROSTAT) 0.[address] ONE(1) TABLET UNDER TONGUE NEEDED FOR CHEST PAIN. IF NO PAIN RELIEF CALL 911 Disp: 25 tablet Rfl: 0 Unknown at Unknown time losartan (COZAAR) 100 mg tablet Take 100 mg by mouth once daily. Disp: Rfl: 08/14/2017 at 0800 furosemide (LASIX) 20 mg tablet Take 40 mg by mouth once daily as needed. Disp: Rfl: Unknown at Unknown time Current hospital medications: isosorbide mononitrate ER 60 mg tab(s) (IMDUR) 60 mg ORAL DAILY clopidogrel 75 mg tab(s) (PLAVIX) 75 mg ORAL DAILY oxyCODONE-acetaminophen 5-325 mg 1-2 tablet (PERCOCET) 1-2 tablet ORAL q 6 H PRN acetaminophen 325-650 mg tab(s) (TYLENOL) 325-650 mg ORAL q 4 H PRN atorvastatin 10 mg tab(s) (LIPITOR) 10 mg ORAL AT BEDTIME losartan 100 mg tab(s) (COZAAR) 100 mg ORAL DAILY QUEtiapine 400 mg tab(s) (SEROquel) 400 mg ORAL AT BEDTIME albuterol HFA 90 mcg/actuation 2 Puff (PROVENTIL HFA, VENTOLIN HFA) 2 Puff INHALATION q 4 H PRN metoprolol succinate ER 100 mg tab(s) (TOPROL XL) 100 mg ORAL DAILY amLODIPine 10 mg tab(s) (NORVASC) 10 mg ORAL DAILY furosemide 40 mg tab(s) (LASIX) 40 mg ORAL DAILY PRN aspirin, enteric coated 81 mg tab(s) (ASPIRIN, ENTERIC COATED) 81 mg ORAL DAILY cyclobenzaprine 10 mg tab(s) (FLEXERIL) 10 mg ORAL HS PRN heparin 5,000 Units injection 5,000 Units SUBCUTANEOUS q 12 H ALLERGIES Allergen Reactions - Altaseptic Unknown - Brilinta [Ticagrelo* Unknown - Crestor [Rosuvastat* Myalgia - Hctz [Amiloride-Hyd* Swelling - Moxifloxacin Swelling - Other [place]-3s Unknown brelinta - Ramipril Swelling Other reaction(s): Facial swelling - Simvastatin Myalgia Other reaction(s): Facial swelling - Voltaren [Diclofena* Unknown COMPLETE REVIEW OF SYSTEMS: PAIN ASSESSMENT: CURRENTLY HAVING PAIN; see HPI GENERAL: No weight loss, malaise or fevers HEENT: Negative for frequent or significant headaches, No changes in hearing or vision, no nose bleeds or other nasal problems NECK: Negative for lumps, goiter, pain and significant neck swelling RESPIRATORY: See HPI CARDIOVASCULAR: See HPI GI: See HPI : No history of dysuria, frequency or incontinence ARCHITECTURAL DRAFTSPERSON: NA MUSCULOSKELETAL: Negative for joint pain or swelling, back pain or muscle pain SKIN: Negative for lesions, rash, and itching PSYCH: Negative for sleep disturbance, mood disorder and recent psychosocial stressors HEMATOLOGY/LYMPHOLOGY: Negative for prolonged bleeding, bruising easily or swollen nodes ENDOCRINE: Negative for cold or heat intolerance, polyuria, polydipsia and goiter NEURO: No history of headaches, syncope, paralysis, seizures or tremors Objective PHYSICAL EXAM: GENERAL: Alert, no distress, cooperative SKIN: Skin color, texture, turgor normal. No rashes or lesions. LUNGS: No resp distress CARDIAC: HDS ABDOMEN: S, ND, Mildly TTP around Right-sided stoma, Large Parastomal hernia with prolapsing loop colostomy, reducible, stool in the bag EXTREMITIES: Extremities normal, no deformities, edema, clubbing or skin discoloration. Good capillary refill., No ulcers NEURO: Grossly normal cognition, motor function, and cranial nerves III-XII The remainder of the physical exam is noncontributory. BP 130/56 Pulse 68 Temp 36.5 ?C (97.7 ?F) (Oral) Resp 18 Ht 172.7 cm (5' 8) Wt 88.5 kg (195 lb) SpO2 97% BMI 29.65 kg/m? Body mass index is 29.65 kg/m?. DATA: Diagnostic tests reviewed for today's visit: CBC, Coags, BMP, Mg, Phos Recent Labs 09/09/17 1344 WBC 9.16* HB 13.2* HCT 40.4 PLT 351 NA 138 K 3.9 CHLOR 106 CO2 29 BUN 16 CREAT 0.87 GLUC 80 CA 9.3 Liver Function, Amylase, AND Lipase Cardiac Enzymes ABGs IMAGING: XR CHEST 2V FRONTAL/LAT Final Result IMPRESSION: No acute radiographic abnormality. Impression/Recommendations 67yoM with Atypical Chest Pain, Diverting Loop Transverse Colostomy with a known parastomal hernia and prolapsing stoma - mgmt per primary - No acute general surgical intervention at this time - Patient to follow up with Colorectal Surgery at [facility], he states he has an appt in November - will sign off, call with questions/concerns D/W Dr. Hawley SIGNATURE: Isaias Tyson MD PATIENT NAME: Maxx Knott DATE: September 11, 2017 TIME: 11:47 AM PAGER/CONTACT #: [phone] Emergency General Surgery Service Pager: For questions or concerns Mon-Fri 6a-5p please page [phone]. After 5pm and on Weekends and Holidays, please page [phone] if in ICU or [phone] if on RNF. PROGRESS Observed: 09/10/2017 Status: COMPLETED Source: [place] 4:03 PM CLINIC OTHER CAMPUS REPOSITORY HNO ID: [id number] Author: Jarocho Dougherty Service: Hospital Medicine Author Type: Physician Type: Progress Notes Filed: 09/10/2017 4:17 PM Note Text: DEPARTMENT OF HOSPITAL MEDICINE PROGRESS NOTE SERVICE DATE: 09/10/2017 SERVICE TIME: 4:04 PM Hospital Medicine/Primary Attending: Jarocho Dougherty MD NIGHT AND WEEKEND COVERAGE: After 7pm please page [phone] CHIEF COMPLAINT: chest pain SUBJECTIVE: Reports chest pain- pressure like with dyspnea and sweaty while doing some activities. No cough, fever or chills or GERD symptoms. OBJECTIVE: PHYSICAL EXAM: BP 103/50 Pulse 65 Temp (Src) 98.1 (Oral) Resp 18 Ht 5' 8 (1.73m) Wt 195 lb (88.5kg) SpO2 96% BMI 29.66 kg/(m2). GENERAL: Alert, no distress, cooperative, SKIN: Skin color, texture, turgor normal. No rashes or lesions. OROPHARYNX: Lips, mucosa, and tongue normal. Teeth and gums normal. Oropharynx normal. LUNGS: Lungs clear to auscultation, Air entry good, Unlabored breathing. CARDIAC: Normal S1 and S2; no rubs, murmurs, or gallops ABDOMEN: Abdomen soft, non-tender, non-distended, BS normal. Colostomy present. EXTREMITIES: Normal, no deformities, edema, clubbing or skin discoloration. NEURO: Grossly normal cognition, motor function, and cranial nerves III-XII MEDICATIONS: Current hospital medications: isosorbide mononitrate ER 60 mg tab(s) (IMDUR) 60 mg ORAL DAILY clopidogrel 75 mg tab(s) (PLAVIX) 75 mg ORAL DAILY oxyCODONE-acetaminophen 5-325 mg 1-2 tablet (PERCOCET) 1-2 tablet ORAL q 6 H PRN acetaminophen 325-650 mg tab(s) (TYLENOL) 325-650 mg ORAL q 4 H PRN atorvastatin 10 mg tab(s) (LIPITOR) 10 mg ORAL AT BEDTIME losartan 100 mg tab(s) (COZAAR) 100 mg ORAL DAILY QUEtiapine 400 mg tab(s) (SEROquel) 400 mg ORAL AT BEDTIME albuterol HFA 90 mcg/actuation 2 Puff (PROVENTIL HFA, VENTOLIN HFA) 2 Puff INHALATION q 4 H PRN metoprolol succinate ER 100 mg tab(s) (TOPROL XL) 100 mg ORAL DAILY amLODIPine 10 mg tab(s) (NORVASC) 10 mg ORAL DAILY furosemide 40 mg tab(s) (LASIX) 40 mg ORAL DAILY PRN aspirin, enteric coated 81 mg tab(s) (ASPIRIN, ENTERIC COATED) 81 mg ORAL DAILY cyclobenzaprine 10 mg tab(s) (FLEXERIL) 10 mg ORAL HS PRN heparin 5,000 Units injection 5,000 Units SUBCUTANEOUS q 12 H DATA: Diagnostic tests reviewed for today's visit: CBC, Coags, BMP, Mg, Phos Recent Labs 09/09/17 1344 WBC 9.16* HB 13.2* HCT 40.4 PLT 351 NA 138 K 3.9 CHLOR 106 CO2 29 BUN 16 CREAT 0.87 GLUC 80 CA 9.3 Liver Function, Amylase, AND Lipase Cardiac Enzymes Heme: No results for input(s): RETICP, ABSRETIC, LD, WINTER, FE, TIBC, TRANSFERSAT in the last 24 hours. 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 Chest pain : troponin normal. lexiscan stress test a month ago negative for ischemia. Evaluated by cardiology- started on isosrbide moninitrate 60 mg today 2. Hx of CAD s/p CABG 3. Chronic pain 4. s/p colostomy in place: has Herniation for a year. No strangulation/ obstruction currently. 5. HTN PLAN: Reports he does not have ride home today. Will keep him another day to monitor. His BP dropped to 103 after first dose of nitrate. Will dc home tomorrow. VTE Prophylaxis: Heparin 5000 units Sub Q BID Disposition: Home Plan of care discussed with: Patient SIGNATURE: Jarocho Dougherty MD PATIENT NAME: Maxx Knott DATE: September 10, 2017 TIME: 4:04 PM PAGER/CONTACT #: [phone] CASE MANAGEM Observed: 09/10/2017 Status: COMPLETED Source: [place] 2:05 PM CLINIC OTHER CAMPUS REPOSITORY HNO ID: [id number] Author: Yane Munson (Rn), RN Service: Care Management Author Type: Registered Nurse Type: Care Mgt Progress Note Filed: 09/10/2017 2:05 PM Note Text: CARE MANAGEMENT PROGRESS NOTE SERVICE DATE: 09/10/2017 SERVICE TIME: 2:05 PM LOS: 0 days Disposition Home with brother Needs Prior to Discharge: Discharge Prescriptions;Pharmacy Bedside Delivery Resides with brother in apt . 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 Pt given list of [facility] PCP and contact number [phone]. Pt to call to schedule an appt Met with pt. No skilled post acute needs identified. Pt brother will transport home. SIGNATURE: Yane Munsno RN PATIENT NAME: Maxx Knott DATE: September 10, 2017 TIME: 2:05 PM PAGER/CONTACT #: [phone] CASE MGT INIT Observed: 09/10/2017 Status: COMPLETED Source: [facility] 1:48 PM CLINIC OTHER CAMPUS REPOSITORY HNO ID: [id number] Author: Yane Munson (Rn), RN Service: Care Management Author Type: Registered Nurse Type: Care Mgt Initial Assessment Filed: 09/10/2017 2:05 PM Note Text: CARE MANAGEMENT: ASSESSMENT AND DISCHARGE PLAN SERVICE DATE: 09/10/2017 SERVICE TIME: 1:50 PM PRIMARY CARE PHYSICIAN: Bijan Perez MD ADMISSION STATUS: Observation Resides with brother in apt . 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 No Advance Directive: Health Literacy: 1. How often do you need to have someone help you when you read instructions, pamphlets, or other written material from your doctor or pharmacy? Never - 1 2. How confident are you filling out medical forms by yourself? Extremely - 1 If Patient scores > 3 on either question, the following interventions were put into place: Patient did not score > 3 FUNCTIONAL AND COGNITIVE/BEHAVIORAL PRIOR TO ADMISSION: Baseline Mental Status: Alert AND Oriented, Person, Place , Time and Situation Functional Status: Independent Does Patient Currently Receive Any Community Services or Home Care? None Equipment Prior to Admission: Bi-level Positive Airway Pressure/Continuous Positive Airway Pressure Has the Patient Been in a Half-Way Facility in the Past 30 days? No SOCIAL: Living Arrangement: Home Lives With: brother Financial Resources: Retired Primary Contact: Extended Emergency Contact Information Primary Emergency Contact: Mary Knott Address: [address] [place], [place] [id number] [place] [address] OF [facility] Mobile Relation: Brother Supportive: Yes Other Important Patient Contacts: None Caregiver Assessment: Caregiver is ready, willing and able to meet the patient's needs as recommended by the inter-professional team? No Caregiver Needed Patient's transition needs and plan for meeting these needs: Supportive Does the patient have an acute stroke diagnosis, or has the patient had a stroke during this admission? No Medication Adherence: I am convinced of the importance of my prescription medication: Agree completely - 0 I worry that my prescription medication will do more harm than good to me Disagree completely - 0 I feel financially burdened by my [id number] expenses for my prescription medication: Disagree completely - 0 Patient is categorized as low risk < 2 Are you interested in bedside delivery of your medications? Yes Food Concerns: In the Last Month, Have You had Trouble Getting Food? No trouble getting food During the Last Month, Have You Worried Whether Your Food Would Run Out Before You Had Enough Money to Buy More? No Is the Patient Psychosocially Complex? No ASSESSMENT AND PLAN: Medical Needs: 2 or more chronic diseases Psychosocial Needs: None FREEDOM OF CHOICE EXPLAINED: N/A POTENTIAL TRANSITION PLANS No Services Indicated Needs Prior to Discharge: Discharge Prescriptions;Pharmacy Bedside Delivery Resides with brother in apt . 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 Pt given list of [facility] PCP and contact number [phone]. Pt to call to schedule an appt Met with pt. No skilled post acute needs identified. Pt brother will transport home. SIGNATURE: Yane Munson RN PATIENT NAME: Maxx Knott DATE: September 10, 2017 TIME: 1:48 PM PAGER/CONTACT #: [phone] CONSULT PROG Observed: 09/10/2017 Status: COMPLETED Source: [place] 9:55 AM CLINIC OTHER CAMPUS REPOSITORY HNO ID: [id number] Author: Luana Sawyer (Mitchell), RN Service: Wound/Ostomy Author Type: Registered Nurse Type: Consult Progress Note Filed: 09/10/2017 10:02 AM Note Text: WOUND CARE NURSE CONSULT NOTE SERVICE DATE: 09/10/2017 SERVICE TIME: 0850 REASON FOR VISIT: Ostomy TIME SPENT (minutes): 45 Documentation from Wound Expert can be found in scanned documents. Patient seen for ostomy care consult. Pouch changed to RUQ colostomy. Stoma red and moist, prolapsed. Supplies at bedside, additional supplies ordered from central distribution, bedside RN to bring to patient room. tube rebuilder to follow. Patient requesting HHC at discharge to assist with pouch change at home. SIGNATURE: Luana Sawyer RN PATIENT NAME: Maxx Knott DATE: September 10, 2017 TIME: 9:55 AM CONTACT#: [id number] CONSULT Observed: 09/10/2017 Status: COMPLETED Source: [place] 9:09 AM [facility] OTHER CAMPUS REPOSITORY O ID: [id number] Author: Poonam Riley Service: Cardiovascular Medicine Author Type: Physician Type: Consults Filed: 09/10/2017 1:53 PM Note Text: CARDIOLOGY CONSULT HISTORY AND PHYSICAL PLEASE DO NOT REMOVE FROM THE CHART OR MODIFY PRINTED COPY STAFF PERSONAL CARE ASSISTANT: Poonam Riley MD Requesting Provider: Dr. Maranda Omer MD Opinion/advice regarding: Continued chest pain despite pain treatment CHIEF COMPLAINT: Persistent chest pain HPI: This is a 67 year old male with PMH of CABG in 2001, PCI in 2017 who initially presented to the emergency department on 09/09/2017 with a cc of chest pain that began around noon. The pain is mid sternal and described as a pressure sensation. Sometimes it also feels sharp. He rates the pain as an 8/10 and states it does not radiate. He states the pain has been constant and was only improved slightly since his admission. He has had variations in the intensity of pain He took a nitroglycerine prior to coming to the emergency department which he states helped slightly though subsequent doses did not help to alleviate the pain. Since his admission, he states his chest pain has been constant and denies any particular change in his symptoms. He has felt slightly nauseous and has vomited a little though also states his appetite has been strong. We were consulted to evaluate the patient due to his persistent chest pain. PAST MEDICAL HISTORY: PAST MEDICAL HISTORY Diagnosis Date - AAA (abdominal aortic aneurysm) without rupture (HCC) 05/13/[address] a/p - CAD (coronary artery disease) 2005 CAD s/p CABG x3 ([id number], [id number], [id number]) (2006 at [facility]) - Current every day smoker PT SMOKES A PIPE - Diverticulitis Perforated Diverticulitis - Diverticulitis of sigmoid colon 05/15/2017 Added automatically from request for surgery [id number] - Pacemaker 02/16/2017 s/p PPM () 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 - Peritonitis ([facility]) PAST SURGICAL HISTORY: PAST SURGICAL HISTORY Procedure Laterality Date - APPENDECTOMY HX - COLOSTOMY 07/2016 Diverting Loop Colostomy of the Transverse Colon - HEART SURGERY HX triple bypass 10 yrs ago - PPM IMPLANT - STENT - CORONARY FAMILY HISTORY: FAMILY HISTORY Problem Relation Age of Onset - Coronary Artery Disease Father - Hyperlipidemia Father SOCIAL HISTORY: Social History Substance Use Topics - Smoking status: Current Every Day Smoker Packs/day: 0.50 Years: 35.00 Types: Pipe, Cigarettes - Smokeless tobacco: Never Used Comment: Quit cigarettes 11-16-16 now smoking 4 pipes as of 04-18-17 - Alcohol use No MEDICATIONS: Prior to Admission Medications: oxyCODONE-acetaminophen (PERCOCET) 10-325 mg tablet Take 1 tablet by mouth every 6 hours as needed. vitamin B complex (B COMPLEX ORAL) Take 1 tablet by mouth once daily. aspirin, enteric coated (ASPIRIN, ENTERIC COATED) 81 mg EC tablet Take 81 mg by mouth once daily. acetaminophen (TYLENOL) 325 mg tablet Take 1-2 tablets by mouth every 4 hours as needed for Pain. cyclobenzaprine (FLEXERIL) 10 mg tablet Take 1 tablet by mouth at bedtime as needed for Muscle Spasm. amLODIPine (NORVASC) 10 mg tablet Take 10 mg by mouth once daily. loratadine 10 mg cap Take 1 capsule every day by oral route as needed pravastatin (PRAVACHOL) 40 mg tablet Take 40 mg by mouth daily at bedtime. gabapentin (NEURONTIN) 300 mg capsule Take 2 capsules by mouth daily at bedtime for 90 days. metoprolol succinate ER (TOPROL XL) 100 mg Tb24 Take 1 tablet by mouth once daily. QUEtiapine (SEROQUEL) 200 mg tablet Take 2 tablets by mouth daily at bedtime. COMPOUNDED PRESCRIPTION One Piece Ostomy Pouch Item Type: Coloplast Sensura One Piece Non-Sterile with Window 3/8-4 1/2'' ?5/BoxICD 10: Prolapsed Stoma K94.09 COMPOUNDED PRESCRIPTION Paste: Convatec Stomahesive 1 tubeICD 10: Prolapsed Stoma K 94.09 MULTIVIT WITH IRON,MINERALS (MULTIVITAMIN AND MINERALS ORAL) Take 1 capsule by mouth once daily. albuterol HFA (PROVENTIL HFA, VENTOLIN HFA) 90 mcg/actuation inhaler Inhale as instructed as needed. fluticasone (FLONASE) 50 mcg/actuation nasal spray Use 1 [place] in the nose once daily as needed. nitroglycerin sublingual (NITROSTAT) 0.[address] ONE(1) TABLET UNDER TONGUE NEEDED FOR CHEST PAIN. IF NO PAIN RELIEF CALL 911 losartan (COZAAR) 100 mg tablet Take 100 mg by mouth once daily. furosemide (LASIX) 20 mg tablet Take 40 mg by mouth once daily as needed. Current hospital medications: acetaminophen 325-650 mg tab(s) (TYLENOL) 325-650 mg ORAL q 4 H PRN atorvastatin 10 mg tab(s) (LIPITOR) 10 mg ORAL AT BEDTIME losartan 100 mg tab(s) (COZAAR) 100 mg ORAL DAILY QUEtiapine 400 mg tab(s) (SEROquel) 400 mg ORAL AT BEDTIME albuterol HFA 90 mcg/actuation 2 Puff (PROVENTIL HFA, VENTOLIN HFA) 2 Puff INHALATION q 4 H PRN metoprolol succinate ER 100 mg tab(s) (TOPROL XL) 100 mg ORAL DAILY amLODIPine 10 mg tab(s) (NORVASC) 10 mg ORAL DAILY furosemide 40 mg tab(s) (LASIX) 40 mg ORAL DAILY PRN aspirin, enteric coated 81 mg tab(s) (ASPIRIN, ENTERIC COATED) 81 mg ORAL DAILY cyclobenzaprine 10 mg tab(s) (FLEXERIL) 10 mg ORAL HS PRN heparin 5,000 Units injection 5,000 Units SUBCUTANEOUS q 12 H morphine 2 mg injection 2 mg INTRAVENOUS q 4 H PRN ALLERGIES: Altaseptic; Brilinta [Ticagrelor]; Crestor [Rosuvastatin Calcium]; Hctz [Amiloride-Hydrochlorothiazide]; Moxifloxacin; Other [place]-3s; Ramipril; Simvastatin; Voltaren [Diclofenac Sodium] COMPLETE REVIEW OF SYSTEMS: General: denies any fevers or chills. HEENT: No sore throat or congestion CV: Complains of chest pains. No swelling in his lower extremities. No palpitations Lungs: Does feel slightly short of breath though has not gotten up for exertion. Denies any cough. Abd: Does have abdominal pain particularly around ostomy site. Has felt nauseous and vomited. Appetite strong. Ext: Denies any pain or swelling in his lower extremities Neuro: AANDO x 3. No motor or sensory deficits. PHYSICAL EXAM: Vital Signs 09/09/17 1825 09/09/17 2050 09/09/17 2213 09/10/17 0637 BP: 160/56 142/51 147/63 Pulse: 84 75 71 67 Resp: 18 16 16 16 Temp: 37 ?C (98.6 ?F) 37.3 ?C (99.1 ?F) 37 ?C (98.6 ?F) TempSrc: Oral Oral Oral SpO2: 95% 94% 96% 97% Weight: Height: Temp (24hrs), Av.9 ?C (98.4 ?F), Min:36.3 ?C (97.3 ?F), Max:37.3 ?C (99.1 ?F) Intake/Output: No intake or output data in the 24 hours ending 09/10/17 0910 Oxygen therapy: no Admit Weight: 88.5 Kg PHYSICAL EXAM: Gen: AANDO x 3 Neck: no jugular venous distention Cardiac: RRR without murmur, gallop, or rubs. No ectopy. Resp: Rales noted in left lower lung osuna posteriorly. No wheezing or rhonchi. Symmetrical airation Abd: Soft, non-tender. Bowel sounds normal. Ostomy in place. Patient has some pain to palpation around ostomy. No blood present in ostomy bag. Ext: no edema, moves all extremities with no apparent weakness Tele: normal sinus rhythm Labs: Invalid input(s): MBP Recent Labs 09/09/17 1344 WBC 9.16* HB 13.2* HCT 40.4 PLT 351 Recent Labs 09/09/17 1344 NA 138 K 3.9 CHLOR 106 CO2 29 BUN 16 CREAT 0.87 GLUC 80 Cholesterol, Total 182 10/02/2016 HDL Cholesterol 37 10/02/2016 LDL Calculated 125 10/02/2016 electrocardiogram [on date 09/09/2017]Reviewed. echocardiogram [on date 05/18/2017] exercise study [date 07/30/2017] INDICATIONS/SYMPTOMS: ? ATHEROSCLEROTIC HEART DISEASE NOS, SHORTNESS OF BREATH, NON-ANGINA CHEST PAIN, HISTORY OF CORONARY ARTERY BYPASS GRAFTING, HISTORY OF PERCUTANEOUS CORONARY ANGIOPLASTY, PRESENCE OF CARDIAC PACEMAKER. MEDICAL HISTORY/COMORBIDITIES: ? SMOKE: YES, HYPERTENSION, HYPERCHOLESTEROLEMIA.ABDOMINAL ANEURYSM W/O RUPTURE. PROCEDURES: ? 04/30/2005 CABG, 09/28/2016 CORONARY STENT IMPLANT, 02/16/2017 DDDR. MEDICATIONS(LAST DOSE): ? K-DUR. RESTING ECG: ? NORMAL SINUS RHYTHM, 1ST DEGREE AV BLOCK. OBSERVATION: ? 1. THE TEST WAS TERMINATED DUE TO END OF PROTOCOL. ? 5. NORMAL ST SEGMENT RESPONSE TO STRESS. ? 7. ANGINA WAS NOT PROVOKED BY STRESS. ? 8. NO ARRHYTHMIAS WERE NOTED AT REST OR DURING STRESS. CONCLUSION: ? NORMAL. ASSESSMENT AND PLAN: # Chest Pain Coronary artery disease status post CABG - continue daily ASA - Start Imdur 60 mg PO daily - Patient states he is on Plavix at home despite no record in medication reconcillation. He should be on Dual antiplatelet therapy. Will restart home Plavix 75 mg PO daily - If chest pain persists may require repeat catheterization. Pain management goal for now. # HTN - Continue current antihypertensive regimen #Chronic systolic heart failure - not in CHF exacerbation currently - continue with PO lasix Hyperlipidemia Continue with atorvastatin 10 mg daily. [facility] SIGNATURE:Dr. Hue Antonio DO PAGER:[phone] DATE of SERVICE: 09/10/2017 TIME of SERVICE: 0900 This note is not final until Authenticated by responsible provider. Patient was seen and discussed with resident. I have personally seen and examined the patient. I have reviewed labs, clinical data and pertinent images. I agree with the documentation, except as annotated. 67-year-old male with known coronary artery disease status post CABG and recent PCI in 2016 who is presenting with atypical chest pain. Pain doesn't resolve with nitroglycerin, nonradiating, constant since prior to the admission. He has had negative troponins ?3. He has had 2 negative myocardial perfusion stress test this year. Most recent one was in July 2017. We can give him a trial of isosorbide mononitrate 60 mg daily and see if that helps at all with the chest pain. Given the atypical nature of pain I advise against doing stress testing. I also recommend workup for noncardiac causes of chest pain. Recommend continuing with aspirin and Plavix. He is also on good therapy for his high blood pressure, coronary artery disease, hyperlipidemia and chronic systolic heart failure. Thank you for allowing me to participate in the care of this patient. Please don't hesitate to contact me if there are any questions regarding the care of our mutual patient. Poonam Riley MD Cardiovascular Medicine Pager: [phone] September 10, 2017 TROPONIN I Collected: 09/10/2017 Status: F Source: [facility] 8:21 AM HEALTH SYSTEM REPOSITORY TYPE CODE TESTS RESULT OUT OF REFERENCE UNITS RANGE LAB TROP(LOINC) 0.015-0.045 ng/ml Troponin I < 0.015 Performed By: #### TROP #### [place] [address] PROGRESS Observed: 09/09/2017 Status: COMPLETED Source: [place] 6:33 PM [facility] REPOSITORY HNO ID: [id number] Author: Dolores Bourgeois (Rn), RN Service: Nursing Author Type: Registered Nurse Type: Progress Notes Filed: 09/09/2017 6:34 PM Note Text: I informed patient that dr omer states that she is not ordering any additional pain medications for the patient tonight. TROPONIN I Collected: 09/09/2017 Status: F Source: [facility] 5:50 PM HEALTH SYSTEM REPOSITORY TYPE CODE TESTS RESULT OUT OF REFERENCE UNITS RANGE LAB TROP(LOINC) 0.015-0.045 ng/ml Troponin I 0.020 Performed By: #### TROP #### [place] [address] PROGRESS Observed: 09/09/2017 Status: COMPLETED Source: [place] 5:40 PM [facility] [place] REPOSITORY HNO ID: [id number] Author: Dolores BourgeoisRn), RN Service: Nursing Author Type: Registered Nurse Type: Progress Notes Filed: 09/09/2017 5:40 PM Note Text: Patient has $540 riley on him right now. I counted the money to verify the amount but patient refused to have it locked up in security HISTORY PHYSICAL Observed: 09/09/2017 Status: COMPLETED Source: [place] 2:47 PM CLINIC OTHER [place] REPOSITORY HNO ID: [id number] Author: Maranda Omer Service: Hospital Medicine Author Type: Physician Type: HANDP Filed: 09/09/2017 2:57 PM Note Text: DEPARTMENT OF HOSPITAL MEDICINE HISTORY AND PHYSICAL EXAM SERVICE DATE: 09/09/2017 SERVICE TIME: 2:47 PM Primary Care Physician: Bijan Perez MD NIGHT AND WEEKEND COVERAGE: From 7am - 7pm, please call [phone] After 7pm, please call cross cover pager #[phone] Subjective CHIEF COMPLAINT: Chest pain HPI: This is a 67 year old male who presents with chest pain. He was sitting at the kitchen table getting ready for lunch and developed midsternal chest pain. Non radiating. Did have SOB with it. Pressure like. Still present. Feels different than his PA as last time he had pain radiating down his left arm. Does complain of stoma pain, but this is chronic. Chemical stress test negative last month. He has had a recent admit at [facility] for stomal herniation which is chronic. There is a note that says he should not be admitted for these symptoms unless something changes. 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 PAST MEDICAL HISTORY Diagnosis Date - AAA (abdominal aortic aneurysm) without rupture (HCC) 05/13/[address] a/p - CAD (coronary artery disease) 2005 CAD s/p CABG x3 (IRGK-YRF-yunjgf, NGN-NXP-vrjbdn, FLK-[id number]-eqifeyyv) (2006 at [facility]) - Current every day smoker PT SMOKES A PIPE - Diverticulitis Perforated Diverticulitis - Diverticulitis of sigmoid colon 05/15/2017 Added automatically from request for surgery [id number] - Pacemaker 02/16/2017 s/p PPM () 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 - Peritonitis ([facility]) PAST SURGICAL HISTORY Procedure Laterality Date - APPENDECTOMY HX - COLOSTOMY 07/2016 Diverting Loop Colostomy of the Transverse Colon - HEART SURGERY HX triple bypass 10 yrs ago - PPM IMPLANT - STENT - CORONARY FAMILY HISTORY Problem Relation Age of Onset - Coronary Artery Disease Father - Hyperlipidemia Father Social History Substance Use Topics - Smoking status: Current Every Day Smoker Packs/day: 0.50 Years: 35.00 Types: Pipe, Cigarettes - Smokeless tobacco: Never Used Comment: Quit cigarettes 7-20-17 now smoking 4 pipes as of 04-18-17 - Alcohol use No HOME MEDICATIONS: Prior to Admission Medications Prescriptions Last Dose Informant Patient Reported? Taking? COMPOUNDED PRESCRIPTION No No Sig: One Piece Ostomy Pouch Item Type: Coloplast Sensura One Piece Non-Sterile with Window 07/05-07 29/2'' ?5/Box ICD 10: Prolapsed Stoma K94.09 COMPOUNDED PRESCRIPTION No No Sig: Paste: Convatec Stomahesive 1 tube ICD 10: Prolapsed Stoma K 94.09 MULTIVIT WITH IRON,MINERALS (MULTIVITAMIN AND MINERALS ORAL) Yes No Sig: Take 1 capsule by mouth once daily. QUEtiapine (SEROQUEL) 200 mg tablet No No Sig: Take 2 tablets by mouth daily at bedtime. acetaminophen (TYLENOL) 325 mg tablet No No Sig: Take 1-2 tablets by mouth every 4 hours as needed for Pain. albuterol HFA (PROVENTIL HFA, VENTOLIN HFA) 90 mcg/actuation inhaler Yes No Sig: Inhale as instructed as needed. amLODIPine (NORVASC) 10 mg tablet Yes No Sig: Take 10 mg by mouth once daily. aspirin, enteric coated (ASPIRIN, ENTERIC COATED) 81 mg EC tablet Yes No Sig: Take 81 mg by mouth once daily. cyclobenzaprine (FLEXERIL) 10 mg tablet No No Sig: Take 1 tablet by mouth at bedtime as needed for Muscle Spasm. fluticasone (FLONASE) 50 mcg/actuation nasal spray Yes No Sig: Use 1 [place] in the nose once daily as needed. furosemide (LASIX) 20 mg tablet Yes No Sig: Take 40 mg by mouth once daily as needed. gabapentin (NEURONTIN) 300 mg capsule No No Sig: Take 2 capsules by mouth daily at bedtime for 90 days. loratadine 10 mg cap Yes No Sig: Take 1 capsule every day by oral route as needed losartan (COZAAR) 100 mg tablet Yes No Sig: Take 100 mg by mouth once daily. metoprolol succinate ER (TOPROL XL) 100 mg Tb24 No No Sig: Take 1 tablet by mouth once daily. nitroglycerin sublingual (NITROSTAT) 0.4 mg SL tablet No No Sig: PLACE ONE(1) TABLET UNDER TONGUE NEEDED FOR CHEST PAIN. IF NO PAIN RELIEF CALL 911 pravastatin (PRAVACHOL) 40 mg tablet Yes No Sig: Take 40 mg by mouth daily at bedtime. vitamin B complex (B COMPLEX ORAL) Yes No Sig: Take 1 tablet by mouth once daily. Facility-Administered Medications: None ALLERGIES Allergen Reactions - Altaseptic Unknown - Brilinta [Ticagrelo* Unknown - Crestor [Rosuvastat* Myalgia - Hctz [Amiloride-Hyd* Swelling - Moxifloxacin Swelling - Other [place]-3s Unknown brelinta - Ramipril Swelling Other reaction(s): Facial swelling - Simvastatin Myalgia Other reaction(s): Facial swelling - Voltaren [Diclofena* Unknown REVIEW OF SYSTEM: All ROS are negative except those noted in HPI Objective PHYSICAL EXAM: BP 177/75 Pulse 95 Temp (Src) 97.3 (Oral) Resp 18 Ht 5' 8 (1.73m) Wt 195 lb (88.5kg) SpO2 96% BMI 29.66 kg/(m2). GENERAL: Alert, no distress, cooperative, NAD SKIN: Warm, dry intact, no open lesions, no rashs HEAD/SINUSES: Normocephalic, atraumatic, oral mucosa moist EYES: PERRLA, EOMI NECK: No jugulovenous distention, Supple, no adenopathy LUNGS: Lungs clear to auscultation, no wheezes, ronchi, or rales CARDIAC: RRR, Normal S1 and S2; no rubs, murmurs, or gallops ABDOMEN: Abdomen soft, non-tender, BS normal, No masses or organomegaly, +stoma with chronic herniation, +brown stool EXTREMITIES: Extremities normal, no deformities, edema, clubbing or skin discoloration. NEURO: Sensation grossly intact, Cranial nerves II-XII intact, moves all 4 extremities, speech was clear and coherent - no chronic ramirez DATA: Diagnostic tests reviewed for today's visit: Most recent labs and imaging results. CBC: Recent Labs 09/09/17 1344 WBC 9.16* RBC 4.31* HB 13.2* HCT 40.4 PLT 351 MCV 93.7 MCH 30.6 MPV 10.5 RDW 13.6 Coags: No results for input(s): INR, APTT in the last 24 hours. Invalid input(s): PT BMP: Recent Labs 09/09/17 1344 NA 138 K 3.9 CHLOR 106 CO2 29 BUN 16 CREAT 0.87 GLUC 80 CMP: Recent Labs 09/09/17 1344 NA 138 K 3.9 CHLOR 106 CO2 29 BUN 16 CREAT 0.87 GLUC 80 CA 9.3 ANION 7* Cardiac Enzymes: No results for input(s): CK, MB, CKMB, TROPT in the last 24 hours. Liver Function, Amylase, Lipase: No results for input(s): TPROT, ALB, ALT, AST, ALKPHOS, TBILI, AMYLASE, LIPASE, LACTATE in the last 24 hours. MG/PHOS: No results for input(s): MG, P in the last 24 hours. Renal Panel: Recent Labs 09/09/17 1344 CREAT 0.87 BUN 16 GLUC 80 CA 9.3 CHLOR 106 K 3.9 CO2 29 NA 138 Heme: No results for input(s): RETICP, ABSRETIC, LD, WINTER, FE, TIBC, TRANSFERSAT in the last 24 hours. Assessment/Plan 1. Chest pain - pt does have risk factors however, he has had a negative stress test 1 month ago as well as one in April 2017. Old records also show a cath in 02/13 that showed mild NON OBSTRUCTIVE CAD. Will check enzymes. IV morphine for severe pain. DC in am. Needs to follow up with cardiology as outpatient 2. CAD - cont with home meds 3. Chronic stoma pain with chronic herniation - plans to follow up with [facility] main for possible reversal. 4. Chronic pain - con't home meds. OARRS reviewed. No pain rx at dc 5. Chronic systolic CHF - appears compensated. Con't daily PRN lasix 6. Colostomy status - will Have ostomy nurse see patient tomorrow. 7. HTN - con't with home meds VTE Prophylaxis: Heparin 5000 units Sub Q BID Disposition: Home in AM Plan of care discussed with: Patient Code status: Patient wants to think about it SIGNATURE: Maranda Omer DO PATIENT NAME: Maxx Knott DATE: September 09, 2017 TIME: 2:47 PM PAGER/CONTACT #: [phone] ED PROV NOTE Observed: 09/09/2017 Status: COMPLETED Source: [place] 2:21 PM CLINIC OTHER CAMPUS REPOSITORY HNO ID: [id number] Author: Rich Rogers MD Service: Emergency Medicine Author Type: Physician Type: ED Provider Notes Filed: 09/09/2017 2:24 PM Note Text: Attending Note I personally saw and examined the patient. I reviewed the resident's note. I agree with the resident's assessment and plan unless otherwise noted. I supervised the nelson portion(s) of procedures performed on this patient by the resident physician. Physical Exam Item(s): HRRR, LCTAB. Abdomen R ABD stoma with prolapse that appears normal in color, no erythema, discharge, pallor or grangrene. Mild TTP around stoma but +BS. This is a 67 year old male presenting with chest pain shortness of breath. He also complains that he is still having stoma prolapse. However on review of his records the patient has had these complaints multiple times before. He is at high risk for acute coronary syndrome given his past history of PA, CABG, CAD. He has had imaging in July of the chest abdomen and pelvis CT a CT for similar complaints. He had no evidence of aneurysm at that time, no evidence of bowel obstruction or PE. I considered PE given his recent admission last month but he has no pleuritic component to this pain he is not hypoxic and not tachypneic. Also he describes the pain more as a pressure similar to previous MIs. Considered bowel obstruction prolapse of his stoma causing Strangulation or incarceration but I see no evidence of this clinically and the patient states this is a chronic process and he is due to have surgery in November for he believes. Therefore at this point we are not considering further imaging of his abdomen and pelvis. Given his risk factors we will admit the patient for chest pain post evaluation. Rich Rogers MD 09/09/17 1424 CHEST 2 VIEWS Observed: 09/09/2017 Status: F Source: [facility] 2:02 PM HEALTH SYSTEM REPOSITORY Performed at [facility] APPROVED BY: Chele Valdes MD EXAMINATION: CHEST RADIOGRAPH (2 VIEW FRONTAL & LATERAL) Clinical History: Chest pain. Shortness of breath. MQ: XC2_5 Comparison: CT chest study 08/09/2017 and chest radiographs 07/21/2017 and 10/01/2016. RESULT: Lines, tubes, and devices: Monitoring wires overlie the chest. Left subclavian pacemaker device with right atrial and right ventricular leads. Lungs and pleura: No parenchymal consolidation. Left-sided diaphragmatic hernia. No pleural effusion. Cardiomediastinal silhouette: Normal cardiac and mediastinal silhouette. Other: Multilevel intervertebral disc degenerative changes of the thoracic spine. Status post median sternotomy and CABG. IMPRESSION: No acute radiographic abnormality. HEMOGRAM/DIFF Collected: 09/09/2017 Status: F Source: [facility] 1:44 PM HEALTH SYSTEM REPOSITORY TYPE CODE TESTS RESULT OUT OF REFERENCE UNITS RANGE LAB WBC(LOINC) 4.23-9.07 thou/cmm WBC High 9.16 LAB RBC(LOINC) 4.63-6.08 mil/cmm Low RBC 4.31 LAB HGB(LOINC) 13.7-17.5 g/dL Low Hgb 13.2 LAB HCT(LOINC) 40.1-51.0 % Hct 40.4 LAB MCV(LOINC) 83.2-95.6 fl MCV 93.7 LAB MCH(LOINC) 25.7-32.2 pg MCH 30.6 LAB MCHC(LOINC 32.3-36.5 % ) MCHC 32.7 LAB RDW(LOINC) 11.6-14.4 % RDW 13.6 LAB RDWSD(LOIN 36.1-45.8 fl C) RDW SD High 46.5 LAB PLT(LOINC) 141-365 thou/cmm Platelet 351 LAB MPV(LOINC) 8.7-12.0 fl MPV 10.5 LAB SEG(LOINC) % Seg Neutrophil 74.5 LAB IGRE(LOINC % ) Immature Grans 0.20 LAB LYMPH(LOIN % C) Lymphocyte 17.2 LAB MNO(LOINC) % Monocyte 6.6 LAB EOSIN(LOIN % C) Eosinophil 1.3 LAB BASO(LOINC % ) Basophil 0.2 LAB SEGN(LOINC 1.78-5.38 thou/cmm ) Abs. High Neut 6.82 LAB IGAB(LOINC 0.00-0.05 thou/cmm ) Abs Immature Grans 0.02 LAB LYMN(LOINC 0.84-2.85 thou/cmm ) Abs. Lymph 1.58 LAB MONON(LOIN 0.30-0.82 thou/cmm C) Abs. [place] 0.60 LAB EOSN(LOINC 0.04-0.54 thou/cmm ) Abs. Eosin 0.12 LAB BASON(LOIN 0.01-0.08 thou/cmm C) Abs. Baso 0.02 Performed By: #### CBCD1 #### [place] [address] [facility] TROPONIN I Collected: 09/09/2017 Status: F Source: [address] [facility] REPOSITORY TYPE CODE TESTS RESULT OUT OF REFERENCE UNITS RANGE LAB ERTRP(LOINC 0.015-0.045 ng/ml ) [facility] Troponin I < 0.015 Performed By: #### ERTRP #### [place] [address] BASIC PANEL Collected: 09/09/2017 Status: F Source: [address] SYSTEM REPOSITORY TYPE CODE TESTS RESULT OUT OF REFERENCE UNITS RANGE LAB NA(LOINC) 136-145 mEq/L Sodium Blood 138 LAB K(LOINC) 3.5-5.1 mEq/L Potassium Blood 3.9 LAB CL(LOINC) 98-107 mEq/L Chloride Blood 106 LAB CO2(LOINC) 21-32 mEq/L CO2 Blood 29 LAB GLU(LOINC) 70-99 mg/dL Glucose Blood 80 LAB BUN(LOINC) 7-18 mg/dL BUN Blood 16 LAB CREA(LOINC 0.67-1.17 mg/dL ) Creatinine Blood 0.87 LAB CA(LOINC) 8.5-10.1 mg/dL Calcium Blood 9.3 LAB ANGAP(LOIN 8-16 C) Low Anion Gap 7 Performed By: #### P8 #### [place] [address] N-TERMINAL PRO-BNP Collected: 09/09/2017 Status: F Source: [address] SYSTEM REPOSITORY TYPE CODE TESTS RESULT OUT OF RANGE REFERENCE UNITS LAB PBNP(LOINC) pg/ml 1148 N-terminal Pro-BNP Result Comment: Acute CHF Rule-in <50 yrs old >= 450 pg/ml >50 yrs old >= 900 pg/ml Abnormal Pro-BNP All patients >=300 pg/ml Performed By: #### PBNP #### [place] [address] MDRD GFR Collected: 09/09/2017 Status: F Source: [facility] 1:44 PM HEALTH SYSTEM REPOSITORY TYPE CODE TESTS RESULT OUT OF RANGE REFERENCE UNITS LAB GFRFN(LOINC >60mL/min/1.73m ) 2 eGFR >60 Result Comment: If the patient is , multiply the result by 1.210. Performed By: #### GFR #### [facility] [address] [place] [address] ED TRIAGE NOTE Observed: 09/09/2017 Status: COMPLETED Source: [place] 12:56 PM [facility] OTHER CAMPUS REPOSITORY HNO ID: [id number] Author: Lenin Razo (Alem) Service: Emergency Medicine Author Type: Physician Tool Grinder Operator Surface Type: ED Triage Notes Filed: 09/09/2017 12:59 PM Note Text: ED INTAKE NOTE Patient Name: Maxx Knott Service Date: 09/09/17 BRIEF HPI: 67-year-old male with past medical history CAD status post CABG, CHF, hypertension, history of stoma who presents to the ED for evaluation of chest pain or shortness of breath. Patient states the chest pain is midsternal in nature and described as an aching. It is nonradiating. It is been constant for the past hour. It is associated with shortness of breath. He states he took 2 nitroglycerin, the first one helped. He states he took the second 1 just prior to arrival. He currently rates the pain 8 out of 10. He denies any leg swelling or calf pain. Denies any fevers or chills. He does report nausea, denies any vomiting. Denies any diaphoresis. He is also complaining of an issue with his stoma which is chronic for him. BRIEF EXAM: Awake and Alert RRR CTAB Stoma appears full of stool INTAKE WORKUP: Bloodwork: CBC BMP Cardiac Enzymes EKG Imaging: XR: Chest SIGNATURE: ALEM Moya PROGRESS Observed: 09/03/2017 Status: COMPLETED Source: [place] 3:38 PM [facility] REPOSITORY HNO ID: [id number] Author: Beulah Hogan Pharmd Service: (none) Author Type: Pharmacist Type: Progress Notes Filed: 09/03/2017 3:42 PM Note Text: TRANSITION CARE MANAGEMENT (TCM) FOLLOW-UP NOTE Provider Action/FYI: ? Still no PCP appt for TCM visit - have routed to schedulers multiple times ? Patient unable to be reached for scheduled TCM pharmacy follow up call #[phone], person not accepting calls at this time ,unable to leave message Follow up call with patient post discharge. See post-discharge summary from contact on 08/20/17. Follow Up Plan: No further follow up needed at this time Time spent on patient: 0-10 minutes Beulah Hogan PharmD September 03, 2017 3:40 PM CNPTOUTREACH Observed: 09/03/2017 Status: COMPLETED Source: [place] 12:00 AM [facility] REPOSITORY Patient Outreach (PHRXRF) MAXX KNOTT ([id number]) 1950 M Date Time Provider Department 09/03/17 BEULAH HOGAN PHARMD PHRXRRon During your visit today, we recorded the following information about you: Beulah Hogan Pharmd 09/03/2017 3:42 PM Signed TRANSITION CARE MANAGEMENT (TCM) FOLLOW-UP NOTE Provider Action/FYI: ? Still no PCP appt for TCM visit - have routed to schedulers multiple times ? Patient unable to be reached for scheduled TCM pharmacy follow up call #[phone], person not accepting calls at this time ,unable to leave message Follow up call with patient post discharge. See post-discharge summary from contact on 08/20/17. Follow Up Plan: No further follow up needed at this time Time spent on patient: 0-10 minutes Beulah Hogan PharmD September 03, 2017 3:40 PM Allergies As of Date: 09/03/2017 Noted Allergy Reaction ALTASEPTIC 12/17/2016 16 - Unknown BRILINTA (TICAGRELOR) 08/09/2017 16 - Unknown CRESTOR (ROSUVASTATIN CALCIUM) 12/17/2016 17 - Myalgia HCTZ (AMILORIDE-HYDROCHLOROTHIAZI*12/17/2016 7 - Swelling MOXIFLOXACIN 7 - Swelling OTHER OMEGA-3S 07/06/2017 16 - Unknown Comments: brelinta RAMIPRIL 12/17/2016 7 - Swelling Comments: Other reaction(s): Facial swelling SIMVASTATIN 12/17/2016 17 - Myalgia Comments: Other reaction(s): Facial swelling VOLTAREN (DICLOFENAC SODIUM) 12/17/2016 16 - Unknown Date Reviewed: 08/28/2017 Reviewed by: Tim Morrow (Rn), RN - Fully Assessed Reason for Visit: Transition Of Care [4074] Cmt: [facility] pharmacy follow up call #2 No Show [1908] Reason For Visit History Recorded Prescriptions as of 09/03/2017 Sig: B COMPLEX ORAL Take 1 tablet by mouth once d* ASPIRIN 81 MG TABLET,DELAYED * Take 81 mg by mouth once dominik* ACETAMINOPHEN 325 MG TABLET Take 1-2 tablets by mouth antwan* CYCLOBENZAPRINE 10 MG TABLET Take 1 tablet by mouth at bed* AMLODIPINE 10 MG TABLET Take 10 mg by mouth once dominik* LORATADINE 10 MG CAPSULE Take 1 capsule every day by o* PRAVASTATIN 40 MG TABLET Take 40 mg by mouth daily at * GABAPENTIN 300 MG CAPSULE Take 2 capsules by mouth dominik* METOPROLOL SUCCINATE ER 100 M* Take 1 tablet by mouth once d* QUETIAPINE 200 MG TABLET Take 2 tablets by mouth daily* COMPOUNDED PRESCRIPTION One Piece Ostomy Pouch Item T* COMPOUNDED PRESCRIPTION Paste: Convatec Stomahesive * MULTIVITAMIN AND MINERALS ORAL Take 1 capsule by mouth once * ALBUTEROL SULFATE HFA 90 MCG/* Inhale as instructed as neede* FLUTICASONE 50 MCG/ACTUATION * Use 1 [place] in the nose once * NITROGLYCERIN 0.4 MG SUBLINGU* PLACE ONE(1) TABLET UNDER TON* LOSARTAN 100 MG TABLET Take 100 mg by mouth once roddy* FUROSEMIDE 20 MG TABLET Take 40 mg by mouth once dominik* Problem List As Of Date 09/03/2017 Noted Resolved 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 Chest pain [R07.9] INVALID FOR*07/24/2017 Priority: A More... Hypertensive crisis [I16.9] INVALID FOR* Priority: B More... Healthcare maintenance [Z00.00] INVALID FOR* Priority: M More... Malnutrition of mild degree (HCC) [E44.1] INVALID FOR* Priority: L More... CHF (congestive heart failure) (HCC) [I50.9] INVALID FOR* Diverticulitis of sigmoid colon [K57.32] INVALID FOR* Class: Recurrent More... Chronic systolic congestive heart failure (HCC)*INVALID FOR* Priority: J More... CAD (coronary artery disease) [I25.10] INVALID FOR* Priority: K More... Hypertensive heart disease with congestive hear*INVALID FOR* Priority: K Hypocalcemia [E83.51] INVALID FOR*06/19/2017 Hypernatremia [E87.0] INVALID FOR*06/19/2017 Hypokalemia [E87.6] INVALID FOR*06/19/2017 Parastomal hernia without obstruction or gangre*INVALID FOR* Abdominal aortic aneurysm without rupture (HCC)*INVALID FOR* Renal cysts, acquired, bilateral [N28.1] INVALID FOR* Arthritis [M19.90] INVALID FOR* Anxiety disorder [F41.9] INVALID FOR* Essential hypertension [I10] INVALID FOR* Nicotine use disorder, F17.2 [F17.200] INVALID FOR* Melena [K92.1] INVALID FOR* Fall [W19.XXXA] INVALID FOR* Abdominal pain [R10.9] INVALID FOR* Encounter Status:Closed by DEENA (PHARMACIST)BEULAH on 09/03/17 ALLIED HEALTH Observed: 08/28/2017 Status: COMPLETED Source: [place] 5:16 PM [facility] [place] REPOSITORY O ID: [id number] Author: Meron KingRn) MITCHELL Montague Service: Wound/Ostomy Author Type: Registered Nurse Type: Allied Health Filed: 08/28/2017 5:35 PM Note Text: ET/WOCN Nursing Consult Topic: ET/WOCN Consultation Note ET Outcome: Consulted for patient in the ED for burning around stoma. Patient has a prolapsed stoma, is not able to care for it himself due to the severity of the prolapse. Patient was supposed to have home healthcare after his last discharge from the hospital, however they never contacted him and he lost the contact information for them. Patient has been wearing the same pouch for two weeks. Lots of tape around pouch. Upon pouch removal patient has fungal rash and denuded skin. Pouch change completed as described below, patient given phone number for home care which was set up prior to discharge, Dory visiting nurse [phone]. Advised to call tomorrow morning, if any problems advised to contact Dr. Yoo's office for assistance. ET's Next Scheduled Visit: as needed Stoma Type: loop colostomy Diameter: approximately 3.5 cm x 3.5 cm Location: RUQ Protrusion: Prolapsed Mucosal condition and color: Red and moist Mucocutaneous junction Intact Peristomal Skin: Erythema, Denuded and Fungal rash Location of Skin Impairment: fungal rash circumferentially, denuded circumferentially close to stoma, erythema scattered. Peristomal contour: Combination rounded, deep derpession from 3-9 o'clock Supportive Tissue: Soft Character of output: thick stool Emptying frequency per day: not assessed Current pouching system: Lyons Premier with 4 cutting surface, Kareem 4 seal, tape Current wearing time: 2 weeks Recommendations: Skin Care: [place]'s soak, antifungal powder, stomahesive powder Pouching System: Kareem 4 seal, Dara Hollihesive washer cut in half with radial slits from 3-9 o'clock and from 9-3 o'clock, paste caulking, Dara Premier 4 cutting surface Wear Time: 3-7 days Midline Abdominal Incision: Healed scar Comment: Time Increment: 1 hour 15 minutes Meron Montague RN, CWOCN [facility] nursing pager [phone] (M-F 7a-4p, Sat, Sun, Holiday 7a-3p) ED NOTE Observed: 08/28/2017 Status: COMPLETED Source: [place] 5:15 PM [facility] REPOSITORY HNO ID: [id number] Author: Sharifa Toth) MITCHELL Santiago Service: Nursing Author Type: Registered Nurse Type: ED Notes Filed: 08/28/2017 5:15 PM Note Text: Patient verbalized understanding of DC instructions. CONSULT PROG Observed: 08/28/2017 Status: COMPLETED Source: [place] 4:58 PM [facility] [place] REPOSITORY HNO ID: [id number] Author: Fani Dover (Fel) Service: Colorectal Author Type: Fellow Type: Consult Progress Note Filed: 08/28/2017 5:03 PM Note Text: [facility] CONSULT SERVICE DATE: 08/28/2017 SERVICE TIME: 458 pm HPI Maxx Knott is a 67 year old male who is being seen at the request of Dr. Olvera in consultation for advice and/or opinion regarding the management of Leaking stoma, stoma prolapse 67 yo male well known to [facility] service, h/o transverse loop colostomy for diverticulitis, PA s/p PCI on asa, plavix with chronic stoma prolapsed, chronic peristomal pain. Recently discharged 08/17, returns to ED because stoma appliance has not been changed since discharge as home care never came to his house, and his appliance is leaking. No n/v. No fevers. .eating well. Ostomy working. 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 RESP: denies dyspnea, cough, asthma, bronchitis, emphysema, and URI < 2 weeks ago. CARD: patient denies any dyspnea, PA, angina pectoris, valvular disease, or syncope and history of past PA - greater than 6 months ago GI: See hpi : No history of disease. RENAL: Denies history of renal insufficiency. ENDO: denies history of diabetes, denies history of thyroid problems and denies history of steroid use HEME: patient denies bleeding, bruising easily, no history of anemia and no history of prior transfusion ONC: no history of cancer VTE: no history of DVT or PE RHEUM: patient denies any symptoms of SLE, PMR, AND/or RA PSYCHIATRIC: denies history of psychiatric illness and denies eating disorders, denies a history of abuse FAMILY HISTORY: FAMILY HISTORY Problem Relation Age of Onset - Coronary Artery Disease Father - Hyperlipidemia Father SOCIAL HISTORY: Social History Substance Use Topics - Smoking status: Current Every Day Smoker Packs/day: 0.50 Years: 35.00 Types: Pipe, Cigarettes - Smokeless tobacco: Never Used Comment: Quit cigarettes 11-16-16 now smoking 4 pipes as of 04-18-17 - Alcohol use No MEDICATIONS: Prior to Admission Medications: vitamin B complex (B COMPLEX ORAL) Take 1 tablet by mouth once daily. aspirin, enteric coated (ASPIRIN, ENTERIC COATED) 81 mg EC tablet Take 81 mg by mouth once daily. acetaminophen (TYLENOL) 325 mg tablet Take 1-2 tablets by mouth every 4 hours as needed for Pain. cyclobenzaprine (FLEXERIL) 10 mg tablet Take 1 tablet by mouth at bedtime as needed for Muscle Spasm. amLODIPine (NORVASC) 10 mg tablet Take 10 mg by mouth once daily. loratadine 10 mg cap Take 1 capsule every day by oral route as needed pravastatin (PRAVACHOL) 40 mg tablet Take 40 mg by mouth daily at bedtime. gabapentin (NEURONTIN) 300 mg capsule Take 2 capsules by mouth daily at bedtime for 90 days. metoprolol succinate ER (TOPROL XL) 100 mg Tb24 Take 1 tablet by mouth once daily. QUEtiapine (SEROQUEL) 200 mg tablet Take 2 tablets by mouth daily at bedtime. COMPOUNDED PRESCRIPTION One Piece Ostomy Pouch Item Type: Coloplast Sensura One Piece Non-Sterile with Window 3/8-4 1/2'' ?5/BoxICD 10: Prolapsed Stoma K94.09 COMPOUNDED PRESCRIPTION Paste: Convatec Stomahesive 1 tubeICD 10: Prolapsed Stoma K 94.09 MULTIVIT WITH IRON,MINERALS (MULTIVITAMIN AND MINERALS ORAL) Take 1 capsule by mouth once daily. albuterol HFA (PROVENTIL HFA, VENTOLIN HFA) 90 mcg/actuation inhaler Inhale as instructed as needed. fluticasone (FLONASE) 50 mcg/actuation nasal spray Use 1 [place] in the nose once daily as needed. nitroglycerin sublingual (NITROSTAT) 0.[address] ONE(1) TABLET UNDER TONGUE NEEDED FOR CHEST PAIN. IF NO PAIN RELIEF CALL 911 losartan (COZAAR) 100 mg tablet Take 100 mg by mouth once daily. furosemide (LASIX) 20 mg tablet Take 40 mg by mouth once daily as needed. Current hospital medications: morphine 4 mg injection 4 mg INTRAVENOUS ONCE ALLERGIES: ALLERGIES Allergen Reactions - Altaseptic Unknown - Brilinta [Ticagrelo* Unknown - Crestor [Rosuvastat* Myalgia - Hctz [Amiloride-Hyd* Swelling - Moxifloxacin Swelling - Other [place]-3s Unknown brelinta - Ramipril Swelling Other reaction(s): Facial swelling - Simvastatin Myalgia Other reaction(s): Facial swelling - Voltaren [Diclofena* Unknown PHYSICAL EXAM: Constitutional: Patient Vitals for the past 24 hrs: BP Temp Temp src Pulse Resp SpO2 Weight 08/28/17 1651 149/69 36.8 ?C (98.2 ?F) Oral 88 18 99 % - 08/28/17 1522 155/66 - - - - - - 08/28/17 1414 - - - - - - 87.1 kg (192 lb) 08/28/17 1413 159/67 - - (!) 96 18 99 % - 08/28/17 1313 164/68 36.8 ?C (98.2 ?F) Oral (!) 108 20 98 % - GENERAL: Healthy, alert, no distress, cooperative, Smiling SKIN: Skin color, texture, turgor normal. No rashes or lesions. HEENT: eomi JVD: No jugulovenous distention, CARDIAC: Normal S1 and S2; no rubs, murmurs, or gallops LUNGS: Lungs clear to auscultation. Good diaphragmatic excursion. ABDOMEN:soft, nontender, non distended. Stoma with large prolapse, easily reducible. Bieber. Bag with significant amount of stool and air. EXTREMITIES: Extremities normal. No deformities, NEURO: oriented x 3 PULSES: 2+ radial : not examined/not indicated. Assessment: 67 yo male with chronically prolapse stoma Plan: ET nurse at bedside to change stoma appliance. She has confirmed that he has home care set up with appropriate stoma care No acute C[facility] problem requiring intervention or admission Okay for discharge home from CORS standpoint SIGNATURE: Fani Dover MD PATIENT NAME: Maxx Knott DATE: August 28, 2017 TIME: 4:58 PM ED NOTE Observed: 08/28/2017 Status: COMPLETED Source: [place] 4:15 PM [facility] REPOSITORY HNO ID: [id number] Author: Sharifa (Rn) MITCHELL Santiago Service: Nursing Author Type: Registered Nurse Type: ED Notes Filed: 08/28/2017 4:15 PM Note Text: Stoma nurse at bedside ED PROV NOTE Observed: 08/28/2017 Status: COMPLETED Source: [place] 3:36 PM [facility] REPOSITORY HNO ID: [id number] Author: Woo Valdovinos MD Service: Emergency Medicine Author Type: Physician Type: ED Provider Notes Filed: 08/28/2017 5:07 PM Note Text: ED Attending Continuation of Care Note August 28, 2017 3:39 PM Maxx Knott was endorsed to me by Dr. Olvera. The patient initially presented to the ED for: Stoma problem.. Signout note reviewed Clinical Course: Patient seen by stoma nurse and bag changed. In addition, [facility] evaluated patient and reduced prolapse. Plan: Discharged home in stable condition. MD Woo Tejeda MD 08/28/17 1707 ED PROV NOTE Observed: 08/28/2017 Status: COMPLETED Source: [place] 2:27 PM [facility] REPOSITORY HNO ID: [id number] Author: Bart Olvera MD Service: Emergency Medicine Author Type: Physician Type: ED Provider Notes Filed: 08/30/2017 7:17 AM Note Text: ED Provider Note Patient Name: Maxx Knott SERVICE DATE: 08/28/17 History Patient presents with: Stoma Consult HPI 67 yo M with PMHx significant for CHF, CAD s/p CABG x3/PCI, AAA. HTN, diverticulitis c/b perforation s/p colostomy c/b stoma prolapse who presents to ED with leaking stoma and bowel prolapse through stoma. Patient reports that stoma has not been changed in >2 weeks. Home nursing services were to be set up upon discharge from hospital but he lost the paperwork. Stoma began leaking yesterday. He removed his abdominal binder because it was soiled and he has since noticed increasing bowel prolapse. He started having constant, 8/10 burning sensation of the intestines starting this afternoon. He reports stool production with intermittent blood. Patient endorses some nausea, headaches, and chills. He denies any fevers, cough, chest pain, or vomiting. 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 - Peritonitis ([facility]) PAST SURGICAL HISTORY Procedure Laterality Date - APPENDECTOMY HX - COLOSTOMY 07/2016 Diverting Loop Colostomy of the Transverse Colon - HEART SURGERY HX triple bypass 10 yrs ago - PPM IMPLANT - STENT - CORONARY FAMILY HISTORY Problem Relation Age of Onset - Coronary Artery Disease Father - Hyperlipidemia Father Social History Social History Main Topics - Smoking status: Current Every Day Smoker Packs/day: 0.50 Years: 35.00 Types: Pipe, Cigarettes - Smokeless tobacco: Never Used Comment: Quit cigarettes 11-16-16 now smoking 4 pipes as of 04-18-17 - Alcohol use No - Drug use: No - Sexual activity: Not Currently ALLERGIES Allergen Reactions - Altaseptic Unknown - Brilinta [Ticagrelo* Unknown - Crestor [Rosuvastat* Myalgia - Hctz [Amiloride-Hyd* Swelling - Moxifloxacin Swelling - Other [place]-3s Unknown brelinta - Ramipril Swelling Other reaction(s): Facial swelling - Simvastatin Myalgia Other reaction(s): Facial swelling - Voltaren [Diclofena* Unknown Review of Systems Constitutional: Positive for chills. Negative for activity change, appetite change, fatigue and fever. HENT: Negative for congestion, rhinorrhea and sore throat. Eyes: Negative for photophobia and visual disturbance. Respiratory: Positive for shortness of breath. Negative for cough and chest tightness. Cardiovascular: Negative for chest pain, palpitations and leg swelling. Gastrointestinal: Positive for abdominal pain and nausea. Negative for abdominal distention, constipation, diarrhea and vomiting. Genitourinary: Negative for difficulty urinating, dysuria, frequency and urgency. Musculoskeletal: Negative for arthralgias, back pain, joint swelling, neck pain and neck stiffness. Skin: Negative for rash. Neurological: Negative for dizziness, weakness and light-headedness. Psychiatric/Behavioral: Negative for agitation and behavioral problems. Physical Exam BP 159/67 Pulse 96 Temp (Src) 98.2 (Oral) Resp 18 Wt 192 lb (87.1kg) SpO2 99% Physical Exam Constitutional: He is oriented to person, place, and time. He appears well-developed and well-nourished. No distress. HENT: Head: Normocephalic and atraumatic. Mouth/Throat: No oropharyngeal exudate. Eyes: Conjunctivae and EOM are normal. Pupils are equal, round, and reactive to light. No scleral icterus. Neck: Normal range of motion. Neck supple. Cardiovascular: Normal rate, regular rhythm and normal heart sounds. Pulmonary/Chest: Effort normal and breath sounds normal. No respiratory distress. He has no wheezes. Abdominal: Soft. Bowel sounds are normal. He exhibits no distension. There is tenderness. Large bowel prolapse through stoma, tender to palpation Stoma bag leaking brown, thick brown stool Musculoskeletal: Normal range of motion. He exhibits edema. 1+ edema in b/l LE Neurological: He is alert and oriented to person, place, and time. Skin: Skin is warm and dry. He is not diaphoretic. Psychiatric: He has a normal mood and affect. His behavior is normal. Diagnostic Testing ED Labs Ordered and Reviewed - No data to display Procedures Medical Decision Making / ED Course 67 yo M p/w leaking stoma and intestinal prolapse through stoma with associated pain. Stoma nurse came and changed stoma bag. Patient given morphine for pain control during exchange. [facility] came to evaluate patient. Prolapse was reduced partially. No concern for bowel incarceration or strangulation. Instructed to follow up with PCP and [facility]. Plan The Patient was DISCHARGED: Counseled patient regarding suspected diagnosis AND need for follow-up. Discharged home with verbal and written instructions. They were instructed to return as needed for persistent or worsening symptoms or any new concerns. Condition at time of disposition: stable SIGNATURE: MD Wade Mena Nina (Twin)MD Resident 08/28/17 9055 Attending Note I evaluated the patient and personally participated in the nelson components. I agree with the resident's findings and plan as documented and have discussed the case and management of the patient's care with the resident. Patient presents with stoma prolapse and localized pain. No vomiting. Some bleeding. Physical examination: Alert oriented nontoxic well-hydrated Abdomen: Nondistended, moderate prolapse. Does not appear to be incarcerated. Medical decision making: For rectal surgery consulted as well as ostomy nurse and came and reduced prolapse and replaced patient's bag. Patient discharged outpatient follow-up. Diagnosis: Prolapse of colostomy-reduced Signature: Bart Olevra MD Date: 08/30/2017 Time: 7:15 AM Bart Olvera MD 08/30/17 0717 ED NOTE Observed: 08/28/2017 Status: COMPLETED Source: [place] 2:00 PM [facility] REPOSITORY HNO ID: [id number] Author: Sharifa (Rn) MITCHELL Santiago Service: Nursing Author Type: Registered Nurse Type: ED Notes Filed: 08/28/2017 2:00 PM Note Text: Agree with triage note. ABCs intact. See flow sheets for assessment. Plan of care -Monitor Patient's Vital Signs for changes in condition -Monitor patient for changes in pain -Maintain patient safety and privacy -Provide comfort measures -Call light in place Siderails up, bed in locked and low position ED TRIAGE NOTE Observed: 08/28/2017 Status: COMPLETED Source: [place] 1:17 PM [facility] REPOSITORY HNO ID: [id number] Author: Nona Caballero (Pa) Service: Emergency Medicine Author Type: Physician Tool Grinder Operator Surface Type: ED Triage Notes Filed: 08/28/2017 1:18 PM Note Text: ED INTAKE NOTE Patient Name: Maxx Knott Service Date: 08/28/17 BRIEF HPI: Maxx Knott is a 67 year old M w PMH CAD, HTN, CHF, colostomy with parastomal hernia who presents to the Emergency Department complaining of stoma issue. Pt recently switched home nurse services, and has not had his colostomy bag changed in several weeks. Bag is now leaking and burning. Pt denies abdominal pain, change in output, nausea, vomiting. BRIEF EXAM: Awake and Alert RRR CTAB Abd soft/NT/ND; no rebound/guarding AMEZQUITA INTAKE WORKUP: Deferred to ED provider. SIGNATURE: NONA CABALLERO PA-C ED NOTE Observed: 08/28/2017 Status: COMPLETED Source: [place] 1:13 PM [facility] REPOSITORY HNO ID: [id number] Author: Tim (Rn) MITCHELL Morrow Service: Emergency Medicine Author Type: Registered Nurse Type: ED Notes Filed: 08/28/2017 1:13 PM Note Text: States his stoma has been burning for a few hours, states the bag feels like it is falling off as well. PROGRESS Observed: 08/28/2017 Status: COMPLETED Source: [place] 8:42 AM [facility] REPOSITORY HNO ID: [id number] Author: Beulah Hogan Pharmd Service: (none) Author Type: Pharmacist Type: Progress Notes Filed: 08/28/2017 9:22 AM Note Text: TRANSITION CARE MANAGEMENT (TCM) FOLLOW-UP NOTE Provider Action/FYI: ? Still no PCP appt for TCM visit - have routed to schedulers multiple times ? Patient unable to be reached for scheduled TCM pharmacy follow up call #1, voicemail full ,unable to leave message. Will try again next week for pharmacy TCM follow up #2. Follow up call with patient post discharge, unable to reach patient, unable to leave msg as mailbox is full. See post-discharge summary from contact on 08/20/17. Follow Up Plan: Will follow up 09/03-09/07 Appointments for Next 60 Days Date Time Provider Location Dept Phone 08/29/2017 8:00 AM [facility] Time spent on patient: 0-10 minutes Beulah Hogan, PharmD August 28, 2017 8:42 AM CNPTOAYAN Observed: 08/28/2017 Status: COMPLETED Source: [place] 12:00 AM [facility] REPOSITORY Patient Outreach (PHRXRF) MAXX KNOTT ([id number]) 1950 M Date Time Provider Department 08/28/17 DEENA PHARMD, BEULAH PHRXRF During your visit today, we recorded the following information about you: Beulah Hogan PharmD 08/28/2017 9:22 AM Signed TRANSITION CARE MANAGEMENT (TCM) FOLLOW-UP NOTE Provider Action/FYI: ? Still no PCP appt for TCM visit - have routed to schedulers multiple times ? Patient unable to be reached for scheduled TCM pharmacy follow up call #1, voicemail full ,unable to leave message. Will try again next week for pharmacy TCM follow up #2. Follow up call with patient post discharge, unable to reach patient, unable to leave msg as mailbox is full. See post-discharge summary from contact on 08/20/17. Follow Up Plan: Will follow up 09/03-09/07 Appointments for Next 60 Days Date Time Provider Location Dept Phone 08/29/2017 8:00 AM [facility] Time spent on patient: 0-10 minutes Beulah Hogan PharmD August 28, 2017 8:42 AM Allergies As of Date: 08/28/2017 Noted Allergy Reaction ALTASEPTIC 12/17/2016 16 - Unknown BRILINTA (TICAGRELOR) 08/09/2017 16 - Unknown CRESTOR (ROSUVASTATIN CALCIUM) 12/17/2016 17 - Myalgia HCTZ (AMILORIDE-HYDROCHLOROTHIAZI*12/17/2016 7 - Swelling MOXIFLOXACIN 7 - Swelling OTHER OMEGA-3S 07/06/2017 16 - Unknown Comments: brelinta RAMIPRIL 12/17/2016 7 - Swelling Comments: Other reaction(s): Facial swelling SIMVASTATIN 12/17/2016 17 - Myalgia Comments: Other reaction(s): Facial swelling VOLTAREN (DICLOFENAC SODIUM) 12/17/2016 16 - Unknown Date Reviewed: 08/17/2017 Reviewed by: Yanely (Rn) MITCHELL Newton - Fully Assessed Reason for Visit: Transition Of Care [7614] Cmt: TCM pharmacy follow up call #1 No Show [1558] Reason For Visit History Recorded Prescriptions as of 08/28/2017 Sig: B COMPLEX ORAL Take 1 tablet by mouth once d* ASPIRIN 81 MG TABLET,DELAYED * Take 81 mg by mouth once dominik* ACETAMINOPHEN 325 MG TABLET Take 1-2 tablets by mouth antwan* CYCLOBENZAPRINE 10 MG TABLET Take 1 tablet by mouth at bed* AMLODIPINE 10 MG TABLET Take 10 mg by mouth once dominik* LORATADINE 10 MG CAPSULE Take 1 capsule every day by o* PRAVASTATIN 40 MG TABLET Take 40 mg by mouth daily at * GABAPENTIN 300 MG CAPSULE Take 2 capsules by mouth dominik* METOPROLOL SUCCINATE ER 100 M* Take 1 tablet by mouth once d* QUETIAPINE 200 MG TABLET Take 2 tablets by mouth daily* COMPOUNDED PRESCRIPTION One Piece Ostomy Pouch Item T* COMPOUNDED PRESCRIPTION Paste: Convatec Stomahesive * MULTIVITAMIN AND MINERALS ORAL Take 1 capsule by mouth once * ALBUTEROL SULFATE HFA 90 MCG/* Inhale as instructed as neede* FLUTICASONE 50 MCG/ACTUATION * Use 1 [place] in the nose once * NITROGLYCERIN 0.4 MG SUBLINGU* PLACE ONE(1) TABLET UNDER TON* LOSARTAN 100 MG TABLET Take 100 mg by mouth once roddy* FUROSEMIDE 20 MG TABLET Take 40 mg by mouth once dominik* Problem List As Of Date 08/28/2017 Noted Resolved 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 Chest pain [R07.9] INVALID FOR*07/24/2017 Priority: A More... Hypertensive crisis [I16.9] INVALID FOR* Priority: B More... Healthcare maintenance [Z00.00] INVALID FOR* Priority: M More... Malnutrition of mild degree ([facility]) [E44.1] INVALID FOR* Priority: L More... CHF (congestive heart failure) ([facility]) [I50.9] INVALID FOR* Diverticulitis of sigmoid colon [K57.32] INVALID FOR* Class: Recurrent More... Chronic systolic congestive heart failure (HCC)*INVALID FOR* Priority: J More... CAD (coronary artery disease) [I25.10] INVALID FOR* Priority: K More... Hypertensive heart disease with congestive hear*INVALID FOR* Priority: K Hypocalcemia [E83.51] INVALID FOR*06/19/2017 Hypernatremia [E87.0] INVALID FOR*06/19/2017 Hypokalemia [E87.6] INVALID FOR*06/19/2017 Parastomal hernia without obstruction or gangre*INVALID FOR* Abdominal aortic aneurysm without rupture (HCC)*INVALID FOR* Renal cysts, acquired, bilateral [N28.1] INVALID FOR* Arthritis [M19.90] INVALID FOR* Anxiety disorder [F41.9] INVALID FOR* Essential hypertension [I10] INVALID FOR* Nicotine use disorder, F17.2 [F17.200] INVALID FOR* Melena [K92.1] INVALID FOR* Fall [W19.XXXA] INVALID FOR* Abdominal pain [R10.9] INVALID FOR* Encounter Status:Closed by DEENA (PHARMACIST)BEULAH on 08/28/17 PROGRESS Observed: 08/20/2017 Status: COMPLETED Source: [place] 11:24 AM [facility] REPOSITORY HNO ID: [id number] Author: Beulah Hogan Pharmd Service: (none) Author Type: Pharmacist Type: Progress Notes Filed: 08/22/2017 11:15 AM Note Text: TRANSITION CARE MANAGEMENT (TCM) INITIAL CONTACT Provider Action/FYI: Schedulers -- Please assist patient with scheduling a 7-14 day TCM visit with PCP following their discharge on 08/17/17. TCM Medication Reconciliation completed for patient. See medication list table below for details. No further action required at this time Initial contact with patient post discharge, spoke to patient. Patient identified by name and . Summary: -Pt discharged from [facility] on 08/17/17. -Follow up appointment on not yet scheduled, agreeable for G-10 schedulers to contact him to assist. -Medication review done Yes. -Admitted for chronic stoma prolapse Patient was contacted by telephone, identified for pharmacist care from discharge call list, and gave consent to manage medications related to transitional care management pursuant to the consult agreement with the [facility]. Patient Concerns: None at this time History of Present Illness: The following content has been copied and pasted from patient's discharge summary. Primary Diagnosis: Chronic stoma prolapse ? Reason for Hospitalization: This is a 67 year old male who was transferred from an outside facility after being evaluated after sustaining a fall. ?Patient has c/o back pain w/o neurological deficits. Outside brain CT negative?and revealed no acute intracranial abnormality. ?Outside abdomen/pelvis scan showed right mid abdomen colostomy containing multiple loop if herniated bowel with no other abnormality within the intra-abdominal or intrapelvic region.??Of note, patient has a history of essential hypertension on Amlodipine 10 mg daily and losartan 100 mg daily; CAD, status post CABG x3 (DJUH-FJQ-oklldg, POM-GCS-edqqsb, ALC-TJ7-nlaeymev); last PCI 01/2017?(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 ? ? Patient has a well established history of stoma prolapse that has not inhibited his bowel function. He should not be admitted to colorectal surgery unless a new issue has developed. ?? Active Problems: Colostomy prolapse (HCC) Chronic systolic congestive heart failure (HCC) CAD (coronary artery disease) Hypertensive heart disease with congestive heart failure (HCC) CHF (congestive heart failure) (HCC) Abdominal aortic aneurysm without rupture (HCC) Arthritis Anxiety disorder Essential hypertension Nicotine use disorder, F17.2 Fall Abdominal pain Resolved Problems: * No resolved hospital problems. * ? ? Operations During Hospitalization: None ? Procedures During Hospitalization: EKG ? Hospital Course: The patient was transferred to a regular nursing floor. Pain was controlled with oral and IV medication and the intake and output were closely monitored. The oral diet was advanced as tolerated. The patient was able to urinate. DVT prophylaxis was managed by Heparin 5000 units BID and intermittent compression stockings. An ECG revealed NSR. Serum electrolytes were monitored with daily labs and replaced as needed. Once pain was controlled with oral medication, a GI soft diet was tolerated, and the stoma was functioning appropriately, he was deemed fit for discharge. 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 - Peritonitis (HCC) Social History Substance Use Topics - Smoking status: Current Every Day Smoker Packs/day: 0.50 Years: 35.00 Types: Pipe, Cigarettes - Smokeless tobacco: Never Used Comment: Quit cigarettes 11-16-16 now smoking 4 pipes as of 04-18-17 - Alcohol use No Immunization History Administered Date(s) Administered Influenza Seasonal - High Dose - Age 65+ 02/05/2017 Pneumovax 02/05/2017 Last 3 Encounter BP Readings: Date: BP: 08/15/2017 145/72 08/09/2017 144/77 07/29/2017 164/64 eGFR (no units) Date Value 08/10/2017 >60 eGFR-All Other Races (.) Date Value 08/17/2017 >60 eGFR- (no units) Date Value 08/17/2017 >60 Estimated Creatinine Clearance: 82.7 mL/min (based on Cr of 0.94). ALLERGIES Allergen Reactions - Altaseptic Unknown - Brilinta [Ticagrelo* Unknown - Crestor [Rosuvastat* Myalgia - Hctz [Amiloride-Hyd* Swelling - Moxifloxacin Swelling - Other [place]-3s Unknown brelinta - Ramipril Swelling Other reaction(s): Facial swelling - Simvastatin Myalgia Other reaction(s): Facial swelling - Voltaren [Diclofena* Unknown Preferred pharmacy: [facility] [address] [place] [address] - [address] - [phone] [facility] [address] Medication Reconciliation: Legend: Stopped, New, Changed, Added to list, RD: notation on reconcile dispense records for patient BDT: RX was filled via [facility] bedside delivery team service prior to discharge Medication List Medication Directions Comments Action/Plan Discontinued: 08/17/2017 12:00 PM Adjusted during stay acetaminophen (TYLENOL) 325 mg tablet Take 1-2 tablets by mouth every 4 hours as needed for Pain. Taking as prescribed without any issues albuterol HFA (PROVENTIL HFA, VENTOLIN HFA) 90 mcg/actuation inhaler Inhale as instructed. Taking as prescribed without any issues PRN amLODIPine (NORVASC) 10 mg tablet Take 10 mg by mouth once daily. Taking as prescribed without any issues aspirin 81 mg chewable tablet Take 81 mg by mouth once daily. EC, not chewable, 1QD Updated med list to reflect COMPOUNDED PRESCRIPTION One Piece Ostomy Pouch Item Type: Coloplast Sensura One Piece Non-Sterile with Window 07/05-4 1/2'' ?5/Box ICD 10: Prolapsed Stoma K94.09 COMPOUNDED PRESCRIPTION Paste: Convatec Stomahesive 1 tube ICD 10: Prolapsed Stoma K 94.09 cyclobenzaprine (FLEXERIL) 10 mg tablet Take 1 tablet by mouth at bedtime as needed for Muscle Spasm. Taking as prescribed without any issues fluticasone (FLONASE) 50 mcg/actuation nasal spray Use 1 [place] in the nose once daily as needed. Taking as prescribed without any issues furosemide (LASIX) 20 mg tablet Take 40 mg by mouth once daily as needed. PRN gabapentin (NEURONTIN) 300 mg capsule Take 2 capsules by mouth daily at bedtime for 90 days. Taking as prescribed without any issues loratadine 10 mg cap Take 1 capsule every day by oral route. PRN Updated med list losartan (COZAAR) 100 mg tablet Take 100 mg by mouth once daily. Taking as prescribed without any issues metoprolol succinate ER (TOPROL XL) 100 mg Tb24 Take 1 tablet by mouth once daily. Taking as prescribed without any issues MULTIVIT WITH IRON,MINERALS (MULTIVITAMIN AND MINERALS ORAL) Take 1 capsule by mouth. QD Updated med list to reflect nitroglycerin sublingual (NITROSTAT) 0.[address] ONE(1) TABLET UNDER TONGUE NEEDED FOR CHEST PAIN. IF NO PAIN RELIEF CALL 911 On hand for PRN oxyCODONE IR (ROXICODONE) 5 mg immediate release tablet Take 1 tablet by mouth every 8 hours as needed for Pain for up to 3 days. Filled BDT Taking as prescribed without any issues pravastatin (PRAVACHOL) 40 mg tablet Take 40 mg by mouth daily at bedtime. Taking as prescribed without any issues QUEtiapine (SEROQUEL) 200 mg tablet Take 2 tablets by mouth daily at bedtime. Taking as prescribed without any issues B-complex qd Self reported OTC item Add to med list Assessment: ? Source of medication information: Memory ? Were adherence barriers identified? No ? Every medication has an indication: Yes ? Medical problems with no assigned therapy: No Additional follow up: ? Patient has no preference for pharmacy TCM follow up call #1, still needs PCP TCM visit, patient agreeable for schedulers to call him to assist Interventions Made: Medication counseling Time spent on patient: 30-45 minutes Beulah Hogan PharmD August 20, 2017 11:25 AM RUTH Observed: 08/20/2017 Status: COMPLETED Source: [place] 12:00 AM [facility] REPOSITORY Patient Outreach (PHRXRF) MAXX KNOTT ([id number]) 1950 M Date Time Provider Department 08/20/17 DEENA SEGURA, BEULAH MENDOZA During your visit today, we recorded the following information about you: Beulah Hogan PharmD 08/22/2017 11:15 AM Signed TRANSITION CARE MANAGEMENT (TCM) INITIAL CONTACT Provider Action/FYI: Schedulers -- Please assist patient with scheduling a 7-14 day TCM visit with PCP following their discharge on 08/17/17. TCM Medication Reconciliation completed for patient. See medication list table below for details. No further action required at this time Initial contact with patient post discharge, spoke to patient. Patient identified by name and . Summary: -Pt discharged from [facility] on 08/17/17. -Follow up appointment on not yet scheduled, agreeable for G-10 schedulers to contact him to assist. -Medication review done Yes. -Admitted for chronic stoma prolapse Patient was contacted by telephone, identified for pharmacist care from discharge call list, and gave consent to manage medications related to transitional care management pursuant to the consult agreement with the [facility]. Patient Concerns: None at this time History of Present Illness: The following content has been copied and pasted from patient's discharge summary. Primary Diagnosis: Chronic stoma prolapse ? Reason for Hospitalization: This is a 67 year old male who was transferred from an outside facility after being evaluated after sustaining a fall. ?Patient has c/o back pain w/o neurological deficits. Outside brain CT negative?and revealed no acute intracranial abnormality. ?Outside abdomen/pelvis scan showed right mid abdomen colostomy containing multiple loop if herniated bowel with no other abnormality within the intra-abdominal or intrapelvic region.??Of note, patient has a history of essential hypertension on Amlodipine 10 mg daily and losartan 100 mg daily; CAD, status post CABG x3 ([id number]-[id number]-uekzlq, SHF-SQR-uxxbfl, BUJ-QM4-xsyjrafc); last PCI 01/2017?(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 ? ? Patient has a well established history of stoma prolapse that has not inhibited his bowel function. He should not be admitted to colorectal surgery unless a new issue has developed. ?? Active Problems: Colostomy prolapse (HCC) Chronic systolic congestive heart failure (HCC) CAD (coronary artery disease) Hypertensive heart disease with congestive heart failure (HCC) CHF (congestive heart failure) (HCC) Abdominal aortic aneurysm without rupture (HCC) Arthritis Anxiety disorder Essential hypertension Nicotine use disorder, F17.2 Fall Abdominal pain Resolved Problems: * No resolved hospital problems. * ? ? Operations During Hospitalization: None ? Procedures During Hospitalization: EKG ? Hospital Course: The patient was transferred to a regular nursing floor. Pain was controlled with oral and IV medication and the intake and output were closely monitored. The oral diet was advanced as tolerated. The patient was able to urinate. DVT prophylaxis was managed by Heparin 5000 units BID and intermittent compression stockings. An ECG revealed NSR. Serum electrolytes were monitored with daily labs and replaced as needed. Once pain was controlled with oral medication, a GI soft diet was tolerated, and the stoma was functioning appropriately, he was deemed fit for discharge. 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 - Peritonitis (HCC) Social History Substance Use Topics - Smoking status: Current Every Day Smoker Packs/day: 0.50 Years: 35.00 Types: Pipe, Cigarettes - Smokeless tobacco: Never Used Comment: Quit cigarettes 11-16-16 now smoking 4 pipes as of 04-18-17 - Alcohol use No Immunization History Administered Date(s) Administered Influenza Seasonal - High Dose - Age 65+ 02/05/2017 Pneumovax 02/05/2017 Last 3 Encounter BP Readings: Date: BP: 08/15/2017 145/72 08/09/2017 144/77 07/29/2017 164/64 eGFR (no units) Date Value 08/10/2017 ANDgt;60 eGFR-All Other Races (.) Date Value 08/17/2017 ANDgt;60 eGFR- (no units) Date Value 08/17/2017 ANDgt;60 Estimated Creatinine Clearance: 82.7 mL/min (based on Cr of 0.94). ALLERGIES Allergen Reactions - Altaseptic Unknown - Brilinta [Ticagrelo* Unknown - Crestor [Rosuvastat* Myalgia - Hctz [Amiloride-Hyd* Swelling - Moxifloxacin Swelling - Other [place]-3s Unknown brelinta - Ramipril Swelling Other reaction(s): Facial swelling - Simvastatin Myalgia Other reaction(s): Facial swelling - Voltaren [Diclofena* Unknown Preferred pharmacy: [facility] [address] [place] [address] - [address] - [phone] [facility]; [place] [address] [facility] [address] Medication Reconciliation: Legend: Stopped, New, Changed, Added to list, RD: notation on reconcile dispense records for patient BDT: RX was filled via [facility] bedside delivery team service prior to discharge Medication List Medication Directions Comments Action/Plan Discontinued: 08/17/2017 12:00 PM Adjusted during stay acetaminophen (TYLENOL) 325 mg tablet Take 1-2 tablets by mouth every 4 hours as needed for Pain. Taking as prescribed without any issues albuterol HFA (PROVENTIL HFA, VENTOLIN HFA) 90 mcg/actuation inhaler Inhale as instructed. Taking as prescribed without any issues PRN amLODIPine (NORVASC) 10 mg tablet Take 10 mg by mouth once daily. Taking as prescribed without any issues aspirin 81 mg chewable tablet Take 81 mg by mouth once daily. EC, not chewable, 1QD Updated med list to reflect COMPOUNDED PRESCRIPTION One Piece Ostomy Pouch Item Type: Coloplast Sensura One Piece Non-Sterile with Window 3- 1/'' ?5/Box ICD 10: Prolapsed Stoma K94.09 COMPOUNDED PRESCRIPTION Paste: Convatec Stomahesive 1 tube ICD 10: Prolapsed Stoma K 94.09 cyclobenzaprine (FLEXERIL) 10 mg tablet Take 1 tablet by mouth at bedtime as needed for Muscle Spasm. Taking as prescribed without any issues fluticasone (FLONASE) 50 mcg/actuation nasal spray Use 1 [place] in the nose once daily as needed. Taking as prescribed without any issues furosemide (LASIX) 20 mg tablet Take 40 mg by mouth once daily as needed. PRN gabapentin (NEURONTIN) 300 mg capsule Take 2 capsules by mouth daily at bedtime for 90 days. Taking as prescribed without any issues loratadine 10 mg cap Take 1 capsule every day by oral route. PRN Updated med list losartan (COZAAR) 100 mg tablet Take 100 mg by mouth once daily. Taking as prescribed without any issues metoprolol succinate ER (TOPROL XL) 100 mg Tb24 Take 1 tablet by mouth once daily. Taking as prescribed without any issues MULTIVIT WITH IRON,MINERALS (MULTIVITAMIN AND MINERALS ORAL) Take 1 capsule by mouth. QD Updated med list to reflect nitroglycerin sublingual (NITROSTAT) 0.[address] ONE(1) TABLET UNDER TONGUE NEEDED FOR CHEST PAIN. IF NO PAIN RELIEF CALL 911 On hand for PRN oxyCODONE IR (ROXICODONE) 5 mg immediate release tablet Take 1 tablet by mouth every 8 hours as needed for Pain for up to 3 days. Filled BDT Taking as prescribed without any issues pravastatin (PRAVACHOL) 40 mg tablet Take 40 mg by mouth daily at bedtime. Taking as prescribed without any issues QUEtiapine (SEROQUEL) 200 mg tablet Take 2 tablets by mouth daily at bedtime. Taking as prescribed without any issues B-complex qd Self reported OTC item Add to med list Assessment: ? Source of medication information: Memory ? Were adherence barriers identified? No ? Every medication has an indication: Yes ? Medical problems with no assigned therapy: No Additional follow up: ? Patient has no preference for pharmacy TCM follow up call #1, still needs PCP TCM visit, patient agreeable for schedulers to call him to assist Interventions Made: Medication counseling Time spent on patient: 30-45 minutes Beulah Hogan, PharmD August 20, 2017 11:25 AM Allergies As of Date: 08/20/2017 Noted Allergy Reaction ALTASEPTIC 12/17/2016 16 - Unknown BRILINTA (TICAGRELOR) 08/09/2017 16 - Unknown CRESTOR (ROSUVASTATIN CALCIUM) 12/17/2016 17 - Myalgia HCTZ (AMILORIDE-HYDROCHLOROTHIAZI*12/17/2016 7 - Swelling MOXIFLOXACIN 7 - Swelling OTHER OMEGA-3S 07/06/2017 16 - Unknown Comments: brelinta RAMIPRIL 12/17/2016 7 - Swelling Comments: Other reaction(s): Facial swelling SIMVASTATIN 12/17/2016 17 - Myalgia Comments: Other reaction(s): Facial swelling VOLTAREN (DICLOFENAC SODIUM) 12/17/2016 16 - Unknown Date Reviewed: 08/17/2017 Reviewed by: Yanely (Rn) MITCHELL Newton - Fully Assessed Reason for Visit: Transition Of Care [4074] Cmt: Hospital discharge 08/17/17 Prescriptions as of 08/20/2017 Sig: B COMPLEX ORAL Take 1 tablet by mouth once d* ASPIRIN 81 MG TABLET,DELAYED * Take 81 mg by mouth once dominik* ACETAMINOPHEN 325 MG TABLET Take 1-2 tablets by mouth antwan* OXYCODONE 5 MG TABLET Take 1 tablet by mouth every * CYCLOBENZAPRINE 10 MG TABLET Take 1 tablet by mouth at bed* AMLODIPINE 10 MG TABLET Take 10 mg by mouth once dominik* LORATADINE 10 MG CAPSULE Take 1 capsule every day by o* PRAVASTATIN 40 MG TABLET Take 40 mg by mouth daily at * GABAPENTIN 300 MG CAPSULE Take 2 capsules by mouth dominik* METOPROLOL SUCCINATE ER 100 M* Take 1 tablet by mouth once d* QUETIAPINE 200 MG TABLET Take 2 tablets by mouth daily* MULTIVITAMIN AND MINERALS ORAL Take 1 capsule by mouth once * ALBUTEROL SULFATE HFA 90 MCG/* Inhale as instructed as neede* FLUTICASONE 50 MCG/ACTUATION * Use 1 [place] in the nose once * NITROGLYCERIN 0.4 MG SUBLINGU* PLACE ONE(1) TABLET UNDER TON* LOSARTAN 100 MG TABLET Take 100 mg by mouth once roddy* FUROSEMIDE 20 MG TABLET Take 40 mg by mouth once dominik* COMPOUNDED PRESCRIPTION One Piece Ostomy Pouch Item T* COMPOUNDED PRESCRIPTION Paste: Convatec Stomahesive * Medication notes this encounter QUETIAPINE 200 MG TABLET >> Beulah Hogan PharmLokesh 08/20/2017 11:51 AM >> DEENA (PHARMACIST), BEULAH SunAug 20, 2017 11:51 AM ALBUTEROL SULFATE HFA 90 MCG/ACTUATION AEROSOL INHALER >> Beulah Hogan PharmD 08/20/2017 11:48 AM >> DEENA (PHARMACIST), [facility] SunAug 20, 2017 11:48 AM Problem List As Of Date 08/20/2017 Noted Resolved 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 Chest pain [R07.9] INVALID FOR*07/24/2017 Priority: A More... Hypertensive crisis [I16.9] INVALID FOR* Priority: B More... Healthcare maintenance [Z00.00] INVALID FOR* Priority: M More... Malnutrition of mild degree ([facility]) [E44.1] INVALID FOR* Priority: L More... CHF (congestive heart failure) ([facility]) [I50.9] INVALID FOR* Diverticulitis of sigmoid colon [K57.32] INVALID FOR* Class: Recurrent More... Chronic systolic congestive heart failure (HCC)*INVALID FOR* Priority: J More... CAD (coronary artery disease) [I25.10] INVALID FOR* Priority: K More... Hypertensive heart disease with congestive hear*INVALID FOR* Priority: K Hypocalcemia [E83.51] INVALID FOR*06/19/2017 Hypernatremia [E87.0] INVALID FOR*06/19/2017 Hypokalemia [E87.6] INVALID FOR*06/19/2017 Parastomal hernia without obstruction or gangre*INVALID FOR* Abdominal aortic aneurysm without rupture (HCC)*INVALID FOR* Renal cysts, acquired, bilateral [N28.1] INVALID FOR* Arthritis [M19.90] INVALID FOR* Anxiety disorder [F41.9] INVALID FOR* Essential hypertension [I10] INVALID FOR* Nicotine use disorder, F17.2 [F17.200] INVALID FOR* Melena [K92.1] INVALID FOR* Fall [W19.XXXA] INVALID FOR* Abdominal pain [R10.9] INVALID FOR* Medications Discontinued During This Encounter aspirin 81 mg chewable tablet 08/20/2017 Class: Historical Med Route: ORAL Sig: Take 81 mg by mouth once daily. Disc: Other Encounter Status:Closed by DEENA (PHARMACIST)BEULAH on 08/22/17 PLAN OF CARE Observed: 08/17/2017 Status: COMPLETED Source: [place] 3:47 PM [facility] REPOSITORY O ID: [id number] Author: Nadeen Cevallos (Content Engineer) Service: (none) Author Type: Scraper Meat Type: Plan of Care Filed: 08/17/2017 3:47 PM Note Text: PHARMACY BEDSIDE DELIVERY SERVICE Patient Name: Maxx Knott The marked outpatient medications were Filled at: [facility] and delivered to the patient's bedside to patient Medication List START taking these medications x oxyCODONE IR 5 mg immediate release tablet Commonly known as: ROXICODONE Take 1 tablet by mouth every 8 hours as needed for Pain for up to 3 days. CHANGE how you take these medications acetaminophen 325 mg tablet Commonly known as: TYLENOL Take 1-2 tablets by mouth every 4 hours as needed for Pain. What changed: - how much to take - when to take this - reasons to take this CONTINUE taking these medications albuterol HFA 90 mcg/actuation inhaler Commonly known as: PROVENTIL HFA, VENTOLIN HFA amLODIPine 10 mg tablet Commonly known as: NORVASC aspirin 81 mg chewable tablet COMPOUNDED PRESCRIPTION One Piece Ostomy Pouch Item Type: Coloplast Sensura One Piece Non-Sterile with Window 3-4 1/2'' ?5/Box ICD 10: Prolapsed Stoma K94.09 COMPOUNDED PRESCRIPTION Paste: Convatec Stomahesive 1 tube ICD 10: Prolapsed Stoma K 94.09 cyclobenzaprine 10 mg tablet Commonly known as: FLEXERIL Take 1 tablet by mouth at bedtime as needed for Muscle Spasm. fluticasone 50 mcg/actuation nasal spray Commonly known as: FLONASE furosemide 20 mg tablet Commonly known as: LASIX gabapentin 300 mg capsule Commonly known as: NEURONTIN Take 2 capsules by mouth daily at bedtime for 90 days. loratadine 10 mg Cap losartan 100 mg tablet Commonly known as: COZAAR metoprolol succinate ER 100 mg Tb24 Commonly known as: TOPROL XL Take 1 tablet by mouth once daily. MULTIVITAMIN AND MINERALS ORAL nitroglycerin sublingual 0.4 mg SL tablet Commonly known as: NITROSTAT PLACE ONE(1) TABLET UNDER TONGUE NEEDED FOR CHEST PAIN. IF NO PAIN RELIEF CALL 911 pravastatin 40 mg tablet Commonly known as: PRAVACHOL QUEtiapine 200 mg tablet Commonly known as: SEROquel Take 2 tablets by mouth daily at bedtime. STOP taking these medications oxyCODONE-acetaminophen 10-325 mg tablet Commonly known as: PERCOCET 10 Nadeen Cevallos (Content Engineer) PAGER: [phone] August 17, 2017 3:47 PM CNDS Observed: 08/17/2017 Status: COMPLETED Source: [place] 3:45 PM [facility] REPOSITORY HNO ID: [id number] Author: Ro Yoo Service: Colorectal Author Type: Physician Type: Discharge Summaries Filed: 08/20/2017 5:12 PM Note Text: DISCHARGE SUMMARY PATIENT NAME: Maxx Knott ADMISSION DATE: 08/16/2017 DISCHARGE DATE: 08/17/2017 Attending Physician: Ro Yoo Primary Diagnosis: Chronic stoma prolapse Reason for Hospitalization: This is a 67 year old male who was transferred from an outside facility after being evaluated after sustaining a fall. Patient has c/o back pain w/o neurological deficits. Outside brain CT negative and revealed no acute intracranial abnormality. Outside abdomen/pelvis scan showed right mid abdomen colostomy containing multiple loop if herniated bowel with no other abnormality within the intra-abdominal or intrapelvic region. Of note, patient has a history of essential hypertension on Amlodipine 10 mg daily and losartan 100 mg daily; CAD, status post CABG x3 ([id number]-AJP-egwckk, BTS-WFG-npabku, ALS-[id number]-nkrxmphu); last PCI 01/2017 (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 Patient has a well established history of stoma prolapse that has not inhibited his bowel function. He should not be admitted to colorectal surgery unless a new issue has developed. Active Problems: Colostomy prolapse (HCC) Chronic systolic congestive heart failure (HCC) CAD (coronary artery disease) Hypertensive heart disease with congestive heart failure (HCC) CHF (congestive heart failure) (HCC) Abdominal aortic aneurysm without rupture (HCC) Arthritis Anxiety disorder Essential hypertension Nicotine use disorder, F17.2 Fall Abdominal pain Resolved Problems: * No resolved hospital problems. * Operations During Hospitalization: None Procedures During Hospitalization: EKG Hospital Course: The patient was transferred to a regular nursing floor. Pain was controlled with oral and IV medication and the intake and output were closely monitored. The oral diet was advanced as tolerated. The patient was able to urinate. DVT prophylaxis was managed by Heparin 5000 units BID and intermittent compression stockings. An ECG revealed NSR. Serum electrolytes were monitored with daily labs and replaced as needed. Once pain was controlled with oral medication, a GI soft diet was tolerated, and the stoma was functioning appropriately, he was deemed fit for discharge. Labs and Procedures Pending at Discharge: No pending results. Consulting Teams During Hospitalization: None Patient Condition @ Discharge: Stable Discharge Disposition: Home with Home Health Care Postoperative Conditions: Not applicable Information Provided to Patient: The patient was provided a copy of the detailed discharge instructions. Discharge Medications: Current Discharge Medication List START taking these medications oxyCODONE IR (ROXICODONE) 5 mg Take 5 mg by mouth every 8 hours as needed for Pain. Earliest Fill Date: 08/17/17 Qty: 9 tablet Refills: 0 Associated Diagnoses:Colostomy prolapse (HCC); Generalized abdominal pain CONTINUE these medications which have CHANGED acetaminophen (TYLENOL) 325-650 mg Take 325-650 mg by mouth every 4 hours as needed for Pain. CONTINUE these medications which have NOT CHANGED gabapentin (NEURONTIN) 600 mg Take 600 mg by mouth daily at bedtime. Qty: 90 capsule Refills: 0 Associated Diagnoses:Chronic low back pain, unspecified back pain laterality, with sciatica presence unspecified !! COMPOUNDED PRESCRIPTION One Piece Ostomy Pouch Item Type: Coloplast Sensura One Piece Non-Sterile with Window 07/05-4 05/01'' ?5/Box ICD 10: Prolapsed Stoma K94.09 Qty: 1 Box Refills: 0 !! COMPOUNDED PRESCRIPTION Paste: Convatec Stomahesive 1 tube ICD 10: Prolapsed Stoma K 94.09 Qty: 1 Tube Refills: 0 cyclobenzaprine (FLEXERIL) 10 mg Take 10 mg by mouth at bedtime as needed for Muscle Spasm. Associated Diagnoses:Chronic low back pain, unspecified back pain laterality, with sciatica presence unspecified amLODIPine (NORVASC) 10 mg Take 10 mg by mouth once daily. loratadine 10 mg cap Take 1 capsule every day by oral route. pravastatin (PRAVACHOL) 40 mg Take 40 mg by mouth daily at bedtime. metoprolol succinate ER (TOPROL XL) 100 mg Take 100 mg by mouth once daily. Qty: 90 tablet Refills: 4 QUEtiapine (SEROquel) 400 mg Take 400 mg by mouth daily at bedtime. Qty: 60 tablet Refills: 0 MULTIVIT WITH IRON,MINERALS (MULTIVITAMIN AND MINERALS ORAL) 1 capsule Take 1 capsule by mouth. albuterol HFA (PROVENTIL HFA, VENTOLIN HFA) 90 mcg/actuation inhaler Inhale as instructed. fluticasone (FLONASE) 1 [place] Use 1 [place] in the nose once daily as needed. nitroglycerin sublingual (NITROSTAT) 0.[address](1) TABLET UNDER TONGUE NEEDED FOR CHEST PAIN. IF NO PAIN RELIEF CALL 911 Qty: 25 tablet Refills: 0 losartan (COZAAR) 100 mg Take 100 mg by mouth once daily. aspirin 81 mg Take 81 mg by mouth once daily. furosemide (LASIX) 40 mg Take 40 mg by mouth once daily as needed. !! - Potential duplicate medications found. Please discuss with provider. STOP taking these medications oxyCODONE-acetaminophen (PERCOCET 10) 10-325 mg tablet Comments: Reason for Stopping: No future appointments. SIGNATURE: Chanel Gonzales APRN.CNP PAGER: [phone] DATE: August 17, 2017 TIME: 3:45 PM PLAN OF CARE Observed: 08/17/2017 Status: COMPLETED Source: [place] 2:40 PM [facility] REPOSITORY HNO ID: [id number] Author: Nadeen Cevallos (Modular Patterns) Service: (none) Author Type: Scraper Meat Type: Plan of Care Filed: 08/17/2017 2:41 PM Note Text: Pharmacy Discharge Medication Service: This patient has elected to receive their discharge prescriptions through the [facility] Bedside Prescription Delivery program. The prescriptions are currently being processed. A follow-up note will be entered once the prescriptions have been filled and delivered to the patient. Please contact me with any questions or updates to the patient's discharge medications. Nadeen Cevallos (Modular Patterns) DCT Contact Info: [id number] PLAN OF CARE Observed: 08/17/2017 Status: COMPLETED Source: [place] 2:37 PM [facility] REPOSITORY HNO ID: [id number] Author: Nadeen Cevallos (Modular Patterns) Service: (none) Author Type: Scraper Meat Type: Plan of Care Filed: 08/17/2017 2:40 PM Note Text: AIR TECHNICIAN BEDSIDE DELIVERY SURVEY 1. Patient to use [facility] Bedside Delivery - YES 2. If fax, patient would like us to fax prescriptions to Pharmacy of choice a. Pharmacy: b. Location: c. Phone: 3. Insurance card on file - YES 4. Credit card for payment - YES CASE MANAGEM Observed: 08/17/2017 Status: COMPLETED Source: [place] 12:32 PM [facility] REPOSITORY HNO ID: [id number] Author: Dian Dumont (Sw) Service: Care Management Author Type: Health Club Attendant Type: Care Mgt Progress Note Filed: 08/17/2017 12:35 PM Note Text: CARE MANAGEMENT DISCHARGE NOTE SERVICE DATE: 08/17/2017 SERVICE TIME: 12:32 PM LOS: 1 day Admission Date: 08/16/2017 DISCHARGE ARRANGEMENT (list agency and phone number) Home care Provider: [facility] - HomeCare, Hospice and Palliative Care (Central Intake) CAREGIVER ASSESSMENT: Caregiver is ready, willing and able to meet the patient's needs as recommended by the inter-professional team? Yes Patient's transition needs and plan for meeting these needs: Patient will return home with [facility]. Does the patient have an acute stroke diagnosis, or has the patient had a stroke during this admission? No HANDOFF COMMUNICATION: Primary Care Physician: Viral Ordonez MD TRANSPORTATION ARRANGEMENTS: Elissa Cazares ADDITIONAL CONTACT RESOURCES: Amanda is medically cleared for discharge. Plan for [facility] for ostomy care. SOC 08/19. Discharge instructions sent to [facility] via [employer]. Contact information for [facility] left with patient at bedside. Plan for Elissa Debora to transport patient home at 5:45PM. Elissa Debora agreed to call nurse's station 15 min before arrival so patient can be brought downstairs. Patient also provided with contact information for Elissa Cazares. No further needs. Patient agreed to plan. SIGNATURE: SOFIE Resendez PATIENT NAME: Maxx Knott DATE: August 17, 2017 TIME: 12:32 PM PAGER/CONTACT #: [phone] ALLIED HEALTH Observed: 08/17/2017 Status: COMPLETED Source: [place] 11:39 AM [facility] [place] REPOSITORY O ID: [id number] Author: Vianney (Mitchell) MITCHELL Key Service: Wound/Ostomy Author Type: Registered Nurse Type: Allied Health Filed: 08/17/2017 11:42 AM Note Text: ET/WOCN Nursing Consult Topic: ET/WOCN Consultation Note ET Outcome: Patient with a chronic stomal prolapse with recent fall and transfer to [facility] for observation. At the time of visit, patient stated that he is getting discharged soon and no need to change pouch. The stoma is red, moist, and functioning (mushy brown effluent) as viewed through the pouch. The seal is intact. The patient refuses further assessment at this time as [facility] does not care his pouching system. ET's Next Scheduled Visit: 08/21 if patient still in hospital. Comment: Coloplast Post Op window pouch x 2 provided Time Increment: 15 minutes Vianney Key MA, BSN, RN-BC, CWOCN [facility] Nursing- Please place consult via [employer]. Thank you. (M-F: [phone], Weekends AND Holidays : [phone]) CASE MGT INIT Observed: 08/17/2017 Status: COMPLETED Source: [place] 11:06 AM [facility] REPOSITORY HNO ID: [id number] Author: Dian Dumont (Sw) Service: Care Management Author Type: Health Club Attendant Type: Care Mgt Initial Assessment Filed: 08/17/2017 11:56 AM Note Text: CARE MANAGEMENT: ASSESSMENT AND DISCHARGE PLAN SERVICE DATE: 08/17/2017 SERVICE TIME: 11:06 AM PRIMARY CARE PHYSICIAN: Bijan Perez MD ADMISSION STATUS: Observation Needs Prior to Discharge: Ready for Discharge MEDICAL: Patient/Home Comfort Advisor Stated Goals: To return home to life as it was Health Insurance: MEDICARE A AND B Health Issues Impacting Discharge Plan: None Last Admission Date: Previous admit date: 08/09/2017 Is this Within the Past 30 days? Yes Is This a Planned Readmission? No: Back pain Followed Up with Appointment Prior to Admission: No appointment scheduled Where Did the Patient Come From? OSH Intervention Taken to Avoid Future Readmission? TBD Advance Directive: Current Advance Directive: None Office Services Clerk Assisted with AD Completion: No Unable to Assist Due To:: Other: See Comment (copies given) Health Literacy: 1. How often do you need to have someone help you when you read instructions, pamphlets, or other written material from your doctor or pharmacy? Never - 1 2. How confident are you filling out medical forms by yourself? Extremely - 1 If Patient scores > 3 on either question, the following interventions were put into place: Patient did not score > 3 FUNCTIONAL AND COGNITIVE/BEHAVIORAL PRIOR TO ADMISSION: Baseline Mental Status: Alert AND Oriented, Person, Place , Time and Situation Functional Status: Independent Does Patient Currently Receive Any Community Services or Home Care? Home Health Care Agency: [facility]; ; Active. Equipment Prior to Admission: Bi-level Positive Airway Pressure/Continuous Positive Airway Pressure Wound Care supplies Has the Patient Been in a Half-Way Facility in the Past 30 days? No SOCIAL: Living Arrangement: Home Lives With: Brother Financial Resources: Disabled Primary Contact: Extended Emergency Contact Information Primary Emergency Contact: Mary Knott Address: [address] [place] [address] [facility] Mobile Relation: Brother Supportive: Yes Other Important Patient Contacts: None Caregiver Assessment: Caregiver is ready, willing and able to meet the patient's needs as recommended by the inter-professional team? No Caregiver Needed Patient's transition needs and plan for meeting these needs: SW following hospital course and POC for any discharge needs. Does the patient have an acute stroke diagnosis, or has the patient had a stroke during this admission? No Medication Adherence: I am convinced of the importance of my prescription medication: Agree completely - 0 I worry that my prescription medication will do more harm than good to me Disagree completely - 0 I feel financially burdened by my [id number] expenses for my prescription medication: Disagree mostly -0 Patient is categorized as low risk < 2 Are you interested in bedside delivery of your medications? Yes Food Concerns: In the Last Month, Have You had Trouble Getting Food? No trouble getting food During the Last Month, Have You Worried Whether Your Food Would Run Out Before You Had Enough Money to Buy More? No Is the Patient Psychosocially Complex? No ASSESSMENT AND PLAN: Medical Needs: 2 or more chronic diseases Psychosocial Needs: Mental Health Diagnosis: Anxiety FREEDOM OF CHOICE EXPLAINED: Yes Patient Financial Disclosure Provided The patient and/or family has been given the Provider List: No Provider List: Home Care Preference: [facility] POTENTIAL TRANSITION PLANS Home Care Patient is a 67 year old male admitted for back pain. SW met with patient at bedside to discuss possible discharge needs. Patient was alert and oriented and engaged with questioning. Patient was recently discharge from [facility] on 08/13/17 with [facility]. Referral sent to [place] for resumption, able to accept. Patient also given [facility] letter as status changed to observation. Per AM team sign out, plan for discharge today. Patient requesting ride home as his brother is unable to pick him up because their car is broken. RACQUEL arranged Elissa Garcianurys for 5:45PM, approved by CM management. Contact information for Elissa Cazares left with patient. Elissa Debora agreed to contact nurse's station 15 minutes before arriving so patient can be brought downstairs. No further needs. SW following. SIGNATURE: SOFIE Resendez PATIENT NAME: Maxx Knott DATE: August 17, 2017 TIME: 11:06 AM PAGER/CONTACT #: [phone] CASE MANAGEM Observed: 08/17/2017 Status: COMPLETED Source: [place] 9:11 AM [facility] REPOSITORY HNO ID: [id number] Author: Mulugeta Brock Service: Care Management Author Type: Physician Type: Care Mgt Progress Note Filed: 08/17/2017 9:16 AM Note Text: CARE MANAGEMENT UTILIZATION REVIEW COMMITTEE Condition Code 44 (Admission Status Discrepancy Review) Admission Date: 08/16/2017 Patient's Initial Order is: In-Patient Date received: 08/17/2017 Date reviewed: 08/17/2017 Under the authority of the Utilization Management Plan, the Physician Advisor has reviewed the medical record of the above patient. The following recommendation has been made by the Physician Advisor, based upon the current available medical information as of the date of this determination. This patient is appropriate for: Observation Rationale for this decision: Maxx Knott had a fall with injury to his back. Imaging was done at an OSH AND he was transferred to F. His back pain, colostomy AND cardiac status: (recent NSTEMI)were all addressed. He is hemodynamically stable without serious back injury AND will be D//Cd before 2 MNs. SIGNATURE: Mulugeta Brock MD PATIENT NAME: Maxx Knott DATE: August 17, 2017 TIME: 9:12 AM PAGER/CONTACT #: [phone] Disclaimer: The information in this determination is to be used for utilization management purposes only. The information and recommendation is made pursuant to Medicare Hospital Conditions of Participation (442 CFR Part 482) and is neither a judgment nor an assessment with regard to the appropriateness or quality of the clinical care. Nothing in this document may be used to limit clinical services provided to the above named patient. This form should be used as one part of the process utilized to ensure compliance with [facility] policy regarding Inpatient Admission and Observation Services. The definitions of Inpatient and Observation used in making the determination above are those provided in Medicare Benefit Policy Manual Chapter 1, Section 1 and 10, Chapter 6, Section 20, and the Medicare Claims Processing Manual Chapter 1, Section 50.3 and Chapter 4, Section 290. This recommendation should be considered as only one factor in determining the patient's final level of service along with other pertinent documentation such as the treating physician's order as documented evidence of concurrence. NURSING PROG Observed: 08/17/2017 Status: COMPLETED Source: [place] 8:40 AM [facility] REPOSITORY HNO ID: [id number] Author: Carmine (Rn) MITCHELL Thrasher Service: (none) Author Type: Registered Nurse Type: Nursing Progress Note Filed: 08/17/2017 8:43 AM Note Text: Nursing Progress Note Patient Name: Maxx Knott Patient Location: H051 013/H051-13 Event(s) / Intervention Note: The patient complained of the following problems: chest tightness. The time of the event occurred at: 0655. The following intervention(s) were initiated: 1x Nitro dose given; MD made aware and orders for troponin lab and EKG. Oncoming RN made aware. After the initiated interventions, the following observation(s) were made: patient appears improved. BP improved and pt reports relief. Will continue to monitor. This note was completed by: Carmine Thrasher RN TROPONIN T Collected: 08/17/2017 Status: F Source: [place] 7:19 AM [facility] REPOSITORY TYPE CODE TESTS RESULT OUT OF REFERENCE UNITS RANGE LAB TROPT 0.000-0.029 ng/mL Troponin T <0.010 Performed By: #### BRAYAN #### [facility] [address], [place] [address] CBC Collected: 08/17/2017 Status: F Source: [place] 5:26 AM [facility] REPOSITORY TYPE CODE TESTS RESULT OUT OF REFERENCE UNITS RANGE LAB WBC 3.70-11.00 k/uL WBC 6.78 LAB RBC 4.20-6.00 m/uL Low RBC 3.99 LAB HGB 13.0-17.0 g/dL Low Hemoglobin 12.2 LAB HCT 39.0-51.0 % Low Hematocrit 36.9 LAB MCV 80.0-100.0 fL MCV 92.5 LAB MCH 26.0-34.0 pG MCH 30.6 LAB MCHC 30.5-36.0 g/dL MCHC 33.1 LAB RDWCV 11.5-15.0 % RDW-CV 14.1 LAB PLTCT 150-400 k/uL Platelet Count 257 LAB MPV 9.0-12.7 fL MPV 10.2 LAB ABSNUC <0.01 k/uL Absolute High nRBC 0.01 Performed By: #### CBC, BMP, MG1, PHOS #### [facility] [address] [place], [place] [address] BASIC METABOLIC PANL Collected: 08/17/2017 Status: F Source: [place] 5:26 AM [facility] REPOSITORY TYPE CODE TESTS RESULT OUT OF REFERENCE UNITS RANGE LAB GLU 74-99 mg/dL High Glucose 101 Result Comment: The [place] Diabetes Association (ADA) provides guidance for cutoff values for fasting glucose and random glucose. The ADA defines fasting as no caloric intake for at least 8 hours. Fas ting plasma glucose results between 100 to 125 mg/dL indicate increased risk for diabetes (prediabetes). Fasting plasma glucose results greater than or equal to 126 mg/dL meet the criteria for diagnosis of diabetes. In the absence of unequivocal hyperglycemia, results should be confirmed by repeat testing. In a patient with classic symptoms of hyperglycemia or hyperglycemic crisis, random plasma glucose results greater than or equal to 200 mg/dL meet the criteria for diagnosis of diabetes. Reference: Standards of Medical Care in Diabetes 2016, [place] Diabetes Association. Diabetes Care. 2016.39(Suppl 1). LAB BUN 9-24 mg/dL BUN 15 LAB CRET 0.73-1.22 mg/dL Creatinine 0.94 LAB NA 136-144 mmol/L Sodium 144 LAB K 3.7-5.1 mmol/L Potassium 4.1 LAB CL 97-105 mmol/L Chloride High 108 LAB CO2 22-30 mmol/L CO2 26 LAB AGAP 9-18 mmol/L Anion Gap 10 LAB CA 8.5-10.2 mg/dL Calcium, Total 9.2 LAB GFRAA eGFR- Amer. >60 LAB GFRNAA . eGFR-All Other Races >60 Result Comment: eGFR (Estimated GFR) Units of measure: mL/min/1.73 meters squared eGFR is derived from the reexpressed MDRD Study equation using the following parameters: serum creatinine, age, gender and race. The creatinine assay has been calibrated to be traceable to IDMS. An eGFR <60 mL/min/1.73m2 for >3 months is consistent with chronic kidney disease. Refer to KDOQI guidelines for clinical interpretation. In patients with unstable renal function, e.g. those with acute kidney injury, the eGFR may not accurately reflect actual GFR. Performed By: #### CBC, BMP, MG1, PHOS #### [facility] [address], [place] [address] MAGNESIUM Collected: 08/17/2017 Status: F Source: [place] 5:26 AM [facility] REPOSITORY TYPE CODE TESTS RESULT OUT OF REFERENCE UNITS RANGE LAB MG 1.7-2.3 mg/dL Magnesium 2.2 Performed By: #### CBC, BMP, MG1, PHOS #### [facility] [address], [place] [address] PHOSPHORUS Collected: 08/17/2017 Status: F Source: [place] 5:26 AM [facility] REPOSITORY TYPE CODE TESTS RESULT OUT OF REFERENCE UNITS RANGE LAB PHOS 2.7-4.8 mg/dL Phosphorus 3.3 Performed By: #### CBC, BMP, MG1, PHOS #### [facility] [address], [place] [address] CBC AND DIFFERENTIAL Collected: 08/16/2017 Status: F Source: [place] 9:43 PM [facility] REPOSITORY TYPE CODE TESTS RESULT OUT OF REFERENCE UNITS RANGE LAB WBC 3.70-11.00 k/uL WBC 8.97 LAB RBC 4.20-6.00 m/uL Low RBC 3.92 LAB HGB 13.0-17.0 g/dL Low Hemoglobin 12.0 LAB HCT 39.0-51.0 % Low Hematocrit 36.4 LAB MCV 80.0-100.0 fL MCV 92.9 LAB MCH 26.0-34.0 pG MCH 30.6 LAB MCHC 30.5-36.0 g/dL MCHC 33.0 LAB RDWCV 11.5-15.0 % RDW-CV 14.2 LAB PLTCT 150-400 k/uL Platelet Count 293 LAB MPV 9.0-12.7 fL MPV 10.9 LAB ANEUT % Neut% 59.5 LAB AANEUT 1.45-7.50 k/uL Abs Neut 5.34 LAB ALYMP % Lymph% 24.6 LAB AALYMP 1.00-4.00 k/uL Abs Lymph 2.21 LAB AMONO % [place]% 12.2 LAB AAMONO <0.87 k/uL Abs [place] High 1.09 LAB AEOS % Eosin% 3.1 LAB AAEOS <0.46 k/uL Abs Eosin 0.28 LAB ABASO % Baso% 0.6 LAB AABASO <0.11 k/uL Abs Baso 0.05 LAB AUNRBC 0 /100 WBC NRBCs 0.0 LAB ABNRBC <0.01 k/uL Absolute nRBC <0.01 LAB DTYP DTYPE Auto Diff Performed By: #### CBCDIF, PT, PTT, CMP, MG1, PHOS #### [facility] [address] [place], [place] [address] PROTIME Collected: 08/16/2017 Status: F Source: [place] 9:43 PM [facility] REPOSITORY TYPE CODE TESTS RESULT OUT OF RANGE REFERENCE UNITS LAB PSEC 9.7-13.0 sec PT Sec 11.0 LAB INR 0.9-1.3 PT INR 1.1 Result Comment: Vitamin K Antagonist (VKA) Therapeutic Range: INR 2 to 3 (Target INR of 2.5) Note: For patients treated with VKA drugs, such as warfarin, the [place] College [employer] Chest [employer]icians 2012 Guideline recommends a therapeutic INR range of 2 to 3 (target INR of 2.5). This recommendation includes high-risk patients with antiphospholipid syndrome with previous arterial or venous thromboembolism, current-generation mechanical or bioprosthetic aortic heart valve replacement. Note: Patients with mechanical aortic valve replacement and additional risk factors for thromboembolic events (atrial fibrillation, previous thromboembolism, LV dysfunction, hypercoagulable conditions) or an older generation mechanical AVR (i.e., ball in-Cage) or any mechanical MVR should have a INR therapeutic range of 2.5 to 3.5 (target INR of 3). Lorelei GH, et al. Chest 2012, 141:7S-47S Teofilo ORTIZ, et al. [facility] 2017, 70: 252-289 Performed By: #### CBCDIF, PT, PTT, CMP, MG1, PHOS #### [facility] [address], [place] [address] APTT Collected: 08/16/2017 Status: F Source: [place] 9:43 PM [facility] REPOSITORY TYPE CODE TESTS RESULT OUT OF RANGE REFERENCE UNITS LAB APTT 23.0-32.4 sec APTT 25.5 Result Comment: Unfractionated Heparin Therapeutic Ranges: Standard Heparin Nomogram: 53 to 78 seconds (anti-Xa level of 0.3 to 0.7 U/ml) Low Dose/ACS Nomogram: 49 to 67 seconds (anti-Xa level of 0.2 to 0.5 U/ml) Stroke Treatment Nomogram: 49 to 67 seconds (anti-Xa level of 0.2 to 0.5 U/ml) Note: The APTT therapeutic range has been determined for the current lot of laboratory APTT reagent in use throughout the [facility]. Performed By: #### CBCDIF, PT, PTT, CMP, MG1, PHOS #### [facility] [address], [place] [address] COMP METABOLIC PANEL Collected: 08/16/2017 Status: F Source: [place] 9:43 [facility] REPOSITORY TYPE CODE TESTS RESULT OUT OF REFERENCE UNITS RANGE LAB TP 6.3-8.0 g/dL Protein, Total 6.5 LAB ALB 3.9-4.9 g/dL Albumin 4.0 LAB CA 8.5-10.2 mg/dL Calcium, Total 9.0 LAB TBIL 0.2-1.3 mg/dL Bilirubin, Total 0.2 LAB ALKP 36-108 U/L Alkaline Phosphatase 74 LAB AST 14-40 U/L AST 16 LAB GLU 74-99 mg/dL Glucose 96 Result Comment: The [place] Diabetes Association (ADA) provides guidance for cutoff values for fasting glucose and random glucose. The ADA defines fasting as no caloric intake for at least 8 hours. Fas ting plasma glucose results between 100 to 125 mg/dL indicate increased risk for diabetes (prediabetes). Fasting plasma glucose results greater than or equal to 126 mg/dL meet the criteria for diagnosis of diabetes. In the absence of unequivocal hyperglycemia, results should be confirmed by repeat testing. In a patient with classic symptoms of hyperglycemia or hyperglycemic crisis, random plasma glucose results greater than or equal to 200 mg/dL meet the criteria for diagnosis of diabetes. Reference: Standards of Medical Care in Diabetes 2016, [place] Diabetes Association. Diabetes Care. 2016.39(Suppl 1). LAB BUN 9-24 mg/dL BUN 16 LAB CRET 0.73-1.22 mg/dL Creatinine 0.87 LAB NA 136-144 mmol/L Sodium 142 LAB K 3.7-5.1 mmol/L Potassium 3.9 LAB CL 97-105 mmol/L Chloride 100 LAB CO2 22-30 mmol/L CO2 23 LAB AGAP 9-18 mmol/L Anion Gap High 19 LAB ALT 10-54 U/L ALT 15 LAB GFRAA eGFR- Amer. >60 LAB GFRNAA . eGFR-All Other Races >60 Result Comment: eGFR (Estimated GFR) Units of measure: mL/min/1.73 meters squared eGFR is derived from the reexpressed MDRD Study equation using the following parameters: serum creatinine, age, gender and race. The creatinine assay has been calibrated to be traceable to IDMS. An eGFR <60 mL/min/1.73m2 for >3 months is consistent with chronic kidney disease. Refer to KDOQI guidelines for clinical interpretation. In patients with unstable renal function, e.g. those with acute kidney injury, the eGFR may not accurately reflect actual GFR. Performed By: #### CBCDIF, PT, PTT, CMP, MG1, PHOS #### [facility] [address] [place] [address] MAGNESIUM Collected: 08/16/2017 Status: F Source: [place] 9:43 PM [facility] REPOSITORY TYPE CODE TESTS RESULT OUT OF REFERENCE UNITS RANGE LAB MG 1.7-2.3 mg/dL Magnesium 2.1 Performed By: #### CBCDIF, PT, PTT, CMP, MG1, PHOS #### [facility] [address] [place], [place] [address] PHOSPHORUS Collected: 08/16/2017 Status: F Source: [place] 9:43 PM [facility] REPOSITORY TYPE CODE TESTS RESULT OUT OF REFERENCE UNITS RANGE LAB PHOS 2.7-4.8 mg/dL Phosphorus 2.8 Performed By: #### CBCDIF, PT, PTT, CMP, MG1, PHOS #### [facility] [address], [place] [address] TYPE AND SCREEN Collected: 08/16/2017 Status: F Source: [place] 9:43 PM [facility] REPOSITORY TYPE CODE TESTS RESULT OUT OF REFERENCE UNITS RANGE LAB %ABR O ABO/RH(D) POSITIVE LAB % Antibody NEG Screen Performed By: #### TSCR #### [facility] [address], [place] [address] ALLIED HEALTH Observed: 08/16/2017 Status: COMPLETED Source: [place] 6:14 PM [facility] REPOSITORY HNO ID: [id number] Author: Mata KingRn) MITCHELL Schultz Service: Wound/Ostomy Author Type: Registered Nurse Type: Allied Health Filed: 08/16/2017 6:21 PM Note Text: ET/WOCN Nursing Consult Topic: ET/WOCN Consultation Note ET Outcome: Patient with a chronic stomal prolapse with recent fall and transfer to [facility] for observation. At time of visit the patient had no complaints of pain. The stoma is red, moist, and functioning (mushy brown effluent) as viewed through the pouch. The seal is intact. No evidence of bloody discharge and the stoma is with a large prolapsed. The patient refuses pouch change or further assessment at this time as [facility] does not care his pouching system. Discussed and provided other options, still the patient refused change or assessment at this time. He states that he wants to wait and see what the plan is tomorrow and go from there. ET's Next Scheduled Visit: 08/17/17 Time Increment: 15 minutes MAIA Salinas, RN, CWOCN NURSING PROG Observed: 08/16/2017 Status: COMPLETED Source: [place] 5:23 PM [facility] REPOSITORY HNO ID: [id number] Author: Vinicius KingRn) MITCHELL Garcia Service: (none) Author Type: Registered Nurse Type: Nursing Progress Note Filed: 08/16/2017 5:26 PM Note Text: Problem(s) / Intervention(s) PATIENT NAME: Maxx Knott The patient Pt c/o numbness and weakness in calves since fall. The following intervention(s) were initiated :Rn paged process automation engineer and Dr. Beebe to make aware. Rn question for US LE to r/o DVT since admitted from [facility]. Awaiting orders. Continue to monitor. This note was completed by: Vinicius Garcia RN NURSING PROG Observed: 08/16/2017 Status: COMPLETED Source: [place] 5:19 PM [facility] REPOSITORY HNO ID: [id number] Author: Vinicius (Rn) MITCHELL Garcia Service: (none) Author Type: Registered Nurse Type: Nursing Progress Note Filed: 08/16/2017 5:21 PM Note Text: Problem(s) / Intervention(s) PATIENT NAME: Maxx Knott The patient Pt with OSH iv pt states it took 6 times to get current iv. Also pt requesting more pain meds. The following intervention(s) were initiated :RN paged Dr. Beebe and process automation engineer to see if could write Nursing communication ok to keep current iv. Also to see if could get more pain meds for pt. Awaiting orders. Continue to monitor. This note was completed by: Vinicius Garcia RN HISTORY PHYSICAL Observed: 08/16/2017 Status: COMPLETED Source: [place] 4:10 PM [facility] REPOSITORY HNO ID: [id number] Author: Ro Curiele Chrissy Service: Colorectal Author Type: Physician Type: HANDP Filed: 08/17/2017 12:14 PM Note Text: . COLORECTAL SURGERY HISTORY AND PHYSICAL EXAMINATION PLEASE DO NOT REMOVE FROM THE CHART OR MODIFY PRINTED COPY Patient Name: Maxx Knott PRIMARY CARE PHYSICIAN: Bijan Perez MD Primary Diagnosis: Back pain; Chronic stomal prolapse ASSESSMENT: Patient presented to the outside hospital for further evaluation of back pain after sustaining a fall. Admitted by Dr. Lina Rich/LEATHA PLAN: Vital signs//trend hypertension Wound/ostomy for pouch change Labs to assess; replete lytes k>4, mg>2 Non-icu monitoring in the setting of severe cardiac history ECG CXR Gi soft diet Fall precautions to maintain safety RT/IS 10x/hr while awake/coughing and deep breathing/hyperinflation Anticipate dc tomorrow am CHIEF COMPLAINT: Back pain 2/2 recent fall HPI: This is a 67 year old male who was transferred from an outside facility after being evaluated after sustaining a fall. Patient has c/o back pain w/o neurological deficits. Outside brain CT negative and revealed no acute intracranial abnormality. Outside abdomen/pelvis showed right mid abdomen colostomy containing multiple loop if herniated bowel with no other abnormality within the intra-abdominal or intrapelvic region. Of note, patient has a history of essential hypertension on Amlodipine 10 mg daily and losartan 100 mg daily; CAD, status post CABG x3 ([id number]-MWX-tmkmxj, NUS-WKZ-hlvgad, MLD-DY1-fhlywizb); last PCI 01/2017?( hospital ): GREY to proximal LAD on DAPT; ischemic systolic congestive heart failure (EF 47%) on ARB, Metoprolol XL 100 mg daily and isosorbide mononitrate 60 mg daily; diverticulitis complicated by a perforation (July 2016), status post Chad?s with loop colostomy complicated by a stoma prolapse with a large parastomal hernia with chronic pain on narcotics; and chronic back pain on Gabapentin 600 mg at bedtime. A pharmacologic stress test on 05/18/2017 showed an EF of 47% with motion abnormalities. In the setting of recent PCI, it is too early to discontinue DAPT for elective surgery with no urgency per IM and cardiology. DAPT should be continued for at least 3-6 months given recent NSTEMI at requiring PCI and GREY. The patient currently denies fever, loss of vision, chest pain, difficulty breathing, dizziness. Unfortunately the patient is not a surgical candidate at this time. 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 - Peritonitis (HCC) PAST SURGICAL HISTORY: PAST SURGICAL HISTORY Procedure Laterality Date - APPENDECTOMY HX - COLOSTOMY 07/2016 Diverting Loop Colostomy of the Transverse Colon - HEART SURGERY HX triple bypass 10 yrs ago - PPM IMPLANT - STENT - CORONARY FAMILY HISTORY: FAMILY HISTORY Problem Relation Age of Onset - Coronary Artery Disease Father - Hyperlipidemia Father SOCIAL HISTORY: Social History Substance Use Topics - Smoking status: Current Every Day Smoker Packs/day: 0.50 Years: 35.00 Types: Pipe, Cigarettes - Smokeless tobacco: Never Used Comment: Quit cigarettes 11-16-16 now smoking 4 pipes as of 04-18-17 - Alcohol use No MEDICATIONS: Prior to Admission Medications: gabapentin (NEURONTIN) 300 mg capsule Take 2 capsules by mouth daily at bedtime for 90 days. COMPOUNDED PRESCRIPTION One Piece Ostomy Pouch Item Type: Coloplast Sensura One Piece Non-Sterile with Window 07/05-4 1/2'' ?5/BoxICD 10: Prolapsed Stoma K94.09 COMPOUNDED PRESCRIPTION Paste: Convatec Stomahesive 1 tubeICD 10: Prolapsed Stoma K 94.09 cyclobenzaprine (FLEXERIL) 10 mg tablet Take 1 tablet by mouth at bedtime as needed for Muscle Spasm. amLODIPine (NORVASC) 10 mg tablet Take 10 mg by mouth once daily. loratadine 10 mg cap Take 1 capsule every day by oral route. oxyCODONE-acetaminophen (PERCOCET 10) 10-325 mg tablet TK 1 T PO BID PRN acetaminophen (TYLENOL) 325 mg tablet Take 3 tablets by mouth every 6 hours. pravastatin (PRAVACHOL) 40 mg tablet Take 40 mg by mouth daily at bedtime. metoprolol succinate ER (TOPROL XL) 100 mg Tb24 Take 1 tablet by mouth once daily. QUEtiapine (SEROQUEL) 200 mg tablet Take 2 tablets by mouth daily at bedtime. MULTIVIT WITH IRON,MINERALS (MULTIVITAMIN AND MINERALS ORAL) Take 1 capsule by mouth. albuterol HFA (PROVENTIL HFA, VENTOLIN HFA) 90 mcg/actuation inhaler Inhale as instructed. fluticasone (FLONASE) 50 mcg/actuation nasal spray Use 1 [place] in the nose once daily as needed. nitroglycerin sublingual (NITROSTAT) 0.[address] ONE(1) TABLET UNDER TONGUE NEEDED FOR CHEST PAIN. IF NO PAIN RELIEF CALL 911 losartan (COZAAR) 100 mg tablet Take 100 mg by mouth once daily. aspirin 81 mg chewable tablet Take 81 mg by mouth once daily. furosemide (LASIX) 20 mg tablet Take 40 mg by mouth once daily as needed. Current hospital medications: potassium chloride ER 20-40 mEq tab(s) (K-DUR, KLOR-CON) 20- 40 mEq ORAL PRN potassium chloride iv piggyback 20 mEq/100 mL 20 mEq INTRAVENOUS PRN magnesium sulfate in water 2 g in sterile water 50 ml 2 g INTRAVENOUS PRN(NO DISPENSE) sodium phosphate 45 mmol in NaCl 0.9% 250 mL 45 mmol INTRAVENOUS PRN(NO DISPENSE) heparin 5,000 Units injection 5,000 Units SUBCUTANEOUS q 12 H dextrose 5% in NaCl 0.45% with 20 mEq/L KCl iv infusion 50 mL/hr INTRAVENOUS CONTINUOUS acetaminophen 325-650 mg tab(s) (TYLENOL) 325-650 mg ORAL q 4 H PRN oxyCODONE IR 5 mg tab(s) (ROXICODONE) 5 mg ORAL q 6 H PRN metoprolol 10 mg injection (LOPRESSOR) 10 mg INTRAVENOUS q 6 H PRN ALLERGIES: ALLERGIES Allergen Reactions - Altaseptic Unknown - Brilinta [Ticagrelo* Unknown - Crestor [Rosuvastat* Myalgia - Hctz [Amiloride-Hyd* Swelling - Moxifloxacin Swelling - Other [place]-3s Unknown brelinta - Ramipril Swelling Other reaction(s): Facial swelling - Simvastatin Myalgia Other reaction(s): Facial swelling - Voltaren [Diclofena* Unknown COMPLETE REVIEW OF SYSTEMS: GENERAL: No weight loss, malaise or fevers., SEE HPI HEENT: Recent headache 2/2 fall. NECK: Negative for pain and significant neck swelling RESPIRATORY: Negative for cough, wheezing or shortness of breath. CARDIOVASCULAR: Negative for chest pain, leg swelling. GI: Chronic abdominal discomfort, prolapsed stoma; negative for change in bowel habits, hematochezia, melena, nausea, vomiting : No history of dysuria MUSCULOSKELETAL: Lumbar back pain 2/2 fall SKIN: Negative for new lesions PSYCH: Negative HEMATOLOGY/LYMPHOLOGY: Negative for prolonged bleeding NEURO: No neurological deficits. All other reviewed and negative other than HPI. PHYSICAL EXAM: BP 168/72 Pulse 84 Temp 36.8 ?C (98.2 ?F) (Oral) Resp 16 Ht 172.7 cm (5' 8) Wt 86.4 kg (190 lb 8 oz) SpO2 98% BMI 28.97 kg/m2 General appearance: well appearing, alert, in no acute distress, well-hydrated, well nourished Skin: skin color, texture, turgor normal, no suspicious rashes or lesions Head: normal Eyes: Extraocular movements are intact. Ears: external ears normal Oropharynx: mucosa moist Neck: normal size Back: motor and sensory appear to be normal Lungs: clear to auscultation, no wheezing or rhonchi Heart: RRR without murmur, gallop, or rubs. No ectopy Abdomen: Abdomen soft, mildly tender, not peritonitic, stoma prolapsed Extremities: No deformities, edema, or skin discoloration. Musculoskeletal: Spine range of motion normal. Muscular strength intact, Peripheral pulses: Normal Neuro: Gait normal. Sensation grossly intact. No neurological deficits. DATA: Laboratory: Recent labs Radiology: Outside imaging reports reviewed. SIGNATURE: Chanel Gonzales CNP PAGER: [phone] DATE of SERVICE: August 16, 2017 TIME of SERVICE: 4:10PM XR CHEST 1V FRONTAL Observed: 08/16/2017 Status: F Source: [facility] 3:58 PM [facility] [place] REPOSITORY * * *Final Report* * * DATE OF EXAM: Aug 16 2017 3:58PM JJ [id number] - XR CHEST 1V FRONTAL PORT / PROCEDURE REASON: Preop cardiovascular exam * * * * Physician Interpretation * * * * EXAMINATION: CHEST RADIOGRAPH (PORTABLE SINGLE VIEW AP) Exam Date/Time: 08/16/2017 3:58 PM Indication: Preop cardiovascular exam MQ: [id number] Comparison: 07/30/2017 RESULT: See impression. IMPRESSION: Lines, tubes, and devices: Patient is status post median sternotomy and CABG. A dual-chamber pacemaker is noted with leads overlying the right atrium and right ventricle. Lungs and pleura: There is mild elevation of the left hemidiaphragm. There is patchy atelectasis in the left lung base. No substantial pleural effusions or large pneumothorax is identified. Cardiomediastinal silhouette: The left retrocardiac lucency most likely represents patient's known fundal diverticulum. The cardiomediastinal silhouette is unchanged. Other: . Prep Room Supervisor: MAGI Transcribe Date/Time: Aug 16 2017 5:02P Dictated by : HERRERA DIAZ MD This examination was interpreted and the report reviewed and electronically signed by: HERRERA DIAZ MD on Aug 16 2017 5:03PM EST [id number] PT ED Observed: 08/16/2017 Status: COMPLETED Source: [place] 3:31 PM [facility] REPOSITORY HNO ID: [id number] Author: Ccf Provider Service: (none) Author Type: Physician Type: Patient Education Filed: 08/16/2017 3:31 PM Note Text: [facility] Patient Education Report --------- Name: MAXX KNOTT Date: 08/16/2017 Time: 3:30 PM Patient Ordered Video: Inpatient Falls from [id number] via phone number [phone] at 3:30 PM PROGRESS Observed: 08/13/2017 Status: COMPLETED Source: [place] 11:08 AM [facility] REPOSITORY HNO ID: [id number] Author: Beulah Hogan Pharmd Service: (none) Author Type: Pharmacist Type: Progress Notes Filed: 08/20/2017 11:18 AM Note Text: TRANSITION CARE MANAGEMENT (TCM) INITIAL CONTACT Provider Action/FYI: ? Schedulers -- Please assist patient with scheduling a 7- 14 day TCM visit with PCP following their discharge on 08/12/17 Unable to reach patient after two or more unsuccessful outreach attempts. TCM medication reconciliation incomplete at this time. Patient unable to be reached after two or more unsuccessful outreach attempts. No further attempts to contact patient will be made. SUMMARY: -Pt discharged from [facility] on 08/12/17. -Follow up appointment on not yet scheduled. -Medication review not done. -Admitted for Fall History of Present Illness: The following content has been copied and pasted from patient's discharge summary. Discharge summary REASON I WAS IN THE HOSPITAL: SUMMARY OF WHAT HAPPENED WHILE I WAS IN THE HOSPITAL: ? S/p fall prior to admit-needs home PT and OT on discharge NOTE: MEDS THAT WILL INCREASE FALL RISK: PERCOCET, FLEXERIL, NEURONTIN, SEROQUEL ?? CT C spine multilevel degenerative disc disease and multilevel canal stenosis. rec f/u with PCP and continued PT/OT. ?? Back pain. Requests percocet. I will not prescribe. Pt needs to f/u with outpt physician. Per Ratna STARKS, had prescribed 15 tabs Pt states he does not have a PCP-I d/w him he needs to follow up with his prescribing physicians. Needs PCP follow up. Pt may use tylenol for pain ?? Pipe smoker-I d/w him to quit ?? Emphysema seen on CT chest ?? 12 mm RUL nodule-f/u with PCP AVS given to patient Take your home Percocet as needed for pain. You may also take ibuprofen or Aleve as needed for pain. Rest and apply ice to affected areas. Return to emergency department for new or worsening symptoms. Follow-up with your primary care physician regarding incidental findings including lung nodules as well as kidney lesion which is unchanged from prior exam. Follow-up with your surgeon for further evaluation of hernia urostomy site. Return to emergency from for new or worsening symptoms. 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 - Peritonitis ([facility]) Social History Substance Use Topics - Smoking status: Current Every Day Smoker Packs/day: 0.50 Years: 35.00 Types: Pipe, Cigarettes - Smokeless tobacco: Never Used Comment: Quit cigarettes 11-16-16 now smoking 4 pipes as of 04-18-17 - Alcohol use No Immunization History Administered Date(s) Administered Influenza Seasonal - High Dose - Age 65+ 02/05/2017 Pneumovax 02/05/2017 Last 3 Encounter BP Readings: Date: BP: 08/09/2017 144/77 07/29/2017 164/64 07/21/2017 170/83 eGFR (no units) Date Value 08/10/2017 >60 eGFR-All Other Races (.) Date Value 07/30/2017 >60 eGFR- (no units) Date Value 07/30/2017 >60 Estimated Creatinine Clearance: 86.2 mL/min (based on Cr of 0.92). ALLERGIES Allergen Reactions - Altaseptic Unknown - Brilinta [Ticagrelo* Unknown - Crestor [Rosuvastat* Myalgia - Hctz [Amiloride-Hyd* Swelling - Other [place]-3s Unknown brelinta - Ramipril Swelling - Simvastatin Myalgia - Voltaren [Diclofena* Unknown Preferred pharmacy: [facility] [address] [place] [phone] - [address] [facility] [address] [phone] [address] Medication Reconciliation: Legend: Stopped, New, Changed, Added to list Medication List Medication Directions Comments Action/Plan acetaminophen (TYLENOL) 325 mg tablet Take 3 tablets by mouth every 6 hours. albuterol HFA (PROVENTIL HFA, VENTOLIN HFA) 90 mcg/actuation inhaler Inhale as instructed. amLODIPine (NORVASC) 10 mg tablet Take 10 mg by mouth once daily. aspirin 81 mg chewable tablet Take 81 mg by mouth once daily. COMPOUNDED PRESCRIPTION One Piece Ostomy Pouch Item Type: Coloplast Sensura One Piece Non-Sterile with Window 07/05-05/01'' ?5/Box ICD 10: Prolapsed Stoma K94.09 COMPOUNDED PRESCRIPTION Paste: Convatec Stomahesive 1 tube ICD 10: Prolapsed Stoma K 94.09 Discontinued: 08/12/2017 11:38 AM On reconcile dispense records cyclobenzaprine (FLEXERIL) 10 mg tablet Take 1 tablet by mouth at bedtime as needed for Muscle Spasm. Med updated at discharge fluticasone (FLONASE) 50 mcg/actuation nasal spray Use 1 [place] in the nose once daily as needed. furosemide (LASIX) 20 mg tablet Take 40 mg by mouth once daily as needed. gabapentin (NEURONTIN) 300 mg capsule Take 2 capsules by mouth daily at bedtime for 90 days. On reconcile dispense records Discontinued: 08/12/2017 11:38 AM D/c BIOFUELS MANAGER loratadine 10 mg cap Take 1 capsule every day by oral route. losartan (COZAAR) 100 mg tablet Take 100 mg by mouth once daily. metoprolol succinate ER (TOPROL XL) 100 mg Tb24 Take 1 tablet by mouth once daily. On reconcile dispense records MULTIVIT WITH IRON,MINERALS (MULTIVITAMIN AND MINERALS ORAL) Take 1 capsule by mouth. nitroglycerin sublingual (NITROSTAT) 0.[address] ONE(1) TABLET UNDER TONGUE NEEDED FOR CHEST PAIN. IF NO PAIN RELIEF CALL 911 oxyCODONE-acetaminophen (PERCOCET 10) 10-325 mg tablet TK 1 T PO BID PRN On reconcile dispense records pravastatin (PRAVACHOL) 40 mg tablet Take 40 mg by mouth daily at bedtime. QUEtiapine (SEROQUEL) 200 mg tablet Take 2 tablets by mouth daily at bedtime. On reconcile dispense records tamsulosin ER (FLOMAX) 0.4 mg cp24 Take 1 capsule every day by oral route. Assessment: Unable to reach patient after two or more unsuccessful outreach attempts. Medication reconciliation points of clarification identified by pharmacist for review with patient : Oxycodone IR 5mg and hydralazine 10mg on reconcile dispense records, need clarification if patient is taking these medications? Not currently on med list Time spent on patient: 30-45 minutes Beulah Hogan PharmD August 14, 2017 9:57 AM Pharmacy Transitional Care Management Outreach ? First attempt to contact patient for TCM outreach was unsuccessful. We will contact patient again on the next business day. ?? Beulah Hogan PharmD August 13, 2017 11:14 AM Pharmacy Transitional Care Management CNPN Observed: 08/13/2017 Status: COMPLETED Source: [place] 12:00 AM [facility] REPOSITORY Telephone (INTMMN) MAXX KNOTT ([id number]) 1950 M Date Time Provider Department 08/13/17 BIJAN PEREZ) INTMMN During your visit today, we recorded the following information about you: Bianca Kaplan Psr 08/13/2017 9:44 AM Signed Name of caller: Farzana [phone] [facility] Reason for call: Orders Patient's documented phone number: [phone] (home) Last visit in this department: 04/18/2017 Last visit with PCP: 04/18/2017 Farzana calling from [facility]. Pt was discharged with home care orders. She would like to know if staff will follow pt for home care and sign 485's. If so please call her with verbal. Can we send you a response via [employer]? No Routed message to May we leave a message? Yes Bianca Kaplan Psr Bijan Perez MD, MD 08/13/2017 10:11 AM Signed OK to follow homecare orders. Thanks. Bijan Perez MD 08/13/2017 10:11 AM Carolee Goldstein [facility] 08/14/2017 8:26 AM Signed Verbal left on Farzana's VM Allergies As of Date: 08/13/2017 Noted Allergy Reaction ALTASEPTIC 12/17/2016 16 - Unknown BRILINTA (TICAGRELOR) 08/09/2017 16 - Unknown CRESTOR (ROSUVASTATIN CALCIUM) 12/17/2016 17 - Myalgia HCTZ (AMILORIDE-HYDROCHLOROTHIAZI*12/17/2016 7 - Swelling OTHER OMEGA-3S 07/06/2017 16 - Unknown Comments: brelinta RAMIPRIL 12/17/2016 7 - Swelling SIMVASTATIN 12/17/2016 17 - Myalgia VOLTAREN (DICLOFENAC SODIUM) 12/17/2016 16 - Unknown Date Reviewed: 08/09/2017 Reviewed by: Iqra (Rn) MITCHELL Davis - Fully Assessed Reason for Visit: Orders [681] Cmt: Verbal- [facility] Prescriptions as of 08/13/2017 Sig: CYCLOBENZAPRINE 10 MG TABLET Take 1 tablet by mouth at bed* AMLODIPINE 10 MG TABLET Take 10 mg by mouth once dominik* LORATADINE 10 MG CAPSULE Take 1 capsule every day by o* TAMSULOSIN 0.4 MG CAPSULE Take 1 capsule every day by o* OXYCODONE-ACETAMINOPHEN 10 MG* TK 1 T PO BID PRN ACETAMINOPHEN 325 MG TABLET Take 3 tablets by mouth every* PRAVASTATIN 40 MG TABLET Take 40 mg by mouth daily at * GABAPENTIN 300 MG CAPSULE Take 2 capsules by mouth dominik* METOPROLOL SUCCINATE ER 100 M* Take 1 tablet by mouth once d* QUETIAPINE 200 MG TABLET Take 2 tablets by mouth daily* COMPOUNDED PRESCRIPTION One Piece Ostomy Pouch Item T* COMPOUNDED PRESCRIPTION Paste: Convatec Stomahesive * MULTIVITAMIN AND MINERALS ORAL Take 1 capsule by mouth. ALBUTEROL SULFATE HFA 90 MCG/* Inhale as instructed. 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 Chest pain [R07.9] INVALID FOR*07/24/2017 Priority: A More... Hypertensive crisis [I16.9] INVALID FOR* Priority: B More... Healthcare maintenance [Z00.00] INVALID FOR* Priority: M More... Malnutrition of mild degree (HCC) [E44.1] INVALID FOR* Priority: L More... CHF (congestive heart failure) (HCC) [I50.9] INVALID FOR* Diverticulitis of sigmoid colon [K57.32] INVALID FOR* Class: Recurrent More... Chronic systolic congestive heart failure (HCC)*INVALID FOR* Priority: J More... CAD (coronary artery disease) [I25.10] INVALID FOR* Priority: K More... Hypertensive heart disease with congestive hear*INVALID FOR* Priority: K Hypocalcemia [E83.51] INVALID FOR*06/19/2017 Hypernatremia [E87.0] INVALID FOR*06/19/2017 Hypokalemia [E87.6] INVALID FOR*06/19/2017 Parastomal hernia without obstruction or gangre*INVALID FOR* Abdominal aortic aneurysm without rupture (HCC)*INVALID FOR* Renal cysts, acquired, bilateral [N28.1] INVALID FOR* Arthritis [M19.90] INVALID FOR* Anxiety disorder [F41.9] INVALID FOR* Essential hypertension [I10] INVALID FOR* Nicotine use disorder, F17.2 [F17.200] INVALID FOR* Melena [K92.1] INVALID FOR* Fall [W19.XXXA] INVALID FOR* Encounter Status:Closed by BIJAN PEREZ MD on 08/13/17 RUTH Observed: 08/13/2017 Status: COMPLETED Source: [place] 12:00 AM [facility] REPOSITORY Patient Outreach (PHRXRF) MAXX KNOTT ([id number]) 1950 M Date Time Provider Department 08/13/17 BEULAH HOGAN PHARMD During your visit today, we recorded the following information about you: Beulah Hogan PharmD 08/20/2017 11:18 AM Signed TRANSITION CARE MANAGEMENT (TCM) INITIAL CONTACT Provider Action/FYI: ? Schedulers -- Please assist patient with scheduling a 7- 14 day TCM visit with PCP following their discharge on 08/12/17 Unable to reach patient after two or more unsuccessful outreach attempts. TCM medication reconciliation incomplete at this time. Patient unable to be reached after two or more unsuccessful outreach attempts. No further attempts to contact patient will be made. SUMMARY: -Pt discharged from [facility] on 08/12/17. -Follow up appointment on not yet scheduled. -Medication review not done. -Admitted for Fall History of Present Illness: The following content has been copied and pasted from patient's discharge summary. Discharge summary REASON I WAS IN THE HOSPITAL: SUMMARY OF WHAT HAPPENED WHILE I WAS IN THE HOSPITAL: ? S/p fall prior to admit-needs home PT and OT on discharge NOTE: MEDS THAT WILL INCREASE FALL RISK: PERCOCET, FLEXERIL, NEURONTIN, SEROQUEL ?? CT C spine multilevel degenerative disc disease and multilevel canal stenosis. rec f/u with PCP and continued PT/OT. ?? Back pain. Requests percocet. I will not prescribe. Pt needs to f/u with outpt physician. Per Ratna STARKS, DO had prescribed 15 tabs Pt states he does not have a PCP-I d/w him he needs to follow up with his prescribing physicians. Needs PCP follow up. Pt may use tylenol for pain ?? Pipe smoker-I d/w him to quit ?? Emphysema seen on CT chest ?? 12 mm RUL nodule-f/u with PCP AVS given to patient Take your home Percocet as needed for pain. You may also take ibuprofen or Aleve as needed for pain. Rest and apply ice to affected areas. Return to emergency department for new or worsening symptoms. Follow- up with your primary care physician regarding incidental findings including lung nodules as well as kidney lesion which is unchanged from prior exam. Follow-up with your surgeon for further evaluation of hernia urostomy site. Return to emergency from for new or worsening symptoms. 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 - Peritonitis ([facility]) Social History Substance Use Topics - Smoking status: Current Every Day Smoker Packs/day: 0.50 Years: 35.00 Types: Pipe, Cigarettes - Smokeless tobacco: Never Used Comment: Quit cigarettes 11-16-16 now smoking 4 pipes as of 04-18-17 - Alcohol use No Immunization History Administered Date(s) Administered Influenza Seasonal - High Dose - Age 65+ 02/05/2017 Pneumovax 02/05/2017 Last 3 Encounter BP Readings: Date: BP: 08/09/2017 144/77 07/29/2017 164/64 07/21/2017 170/83 eGFR (no units) Date Value 08/10/2017 ANDgt;60 eGFR-All Other Races (.) Date Value 07/30/2017 ANDgt;60 eGFR- (no units) Date Value 07/30/2017 ANDgt;60 Estimated Creatinine Clearance: 86.2 mL/min (based on Cr of 0.92). ALLERGIES Allergen Reactions - Altaseptic Unknown - Brilinta [Ticagrelo* Unknown - Crestor [Rosuvastat* Myalgia - Hctz [Amiloride-Hyd* Swelling - Other [place]-3s Unknown brelinta - Ramipril Swelling - Simvastatin Myalgia - Voltaren [Diclofena* Unknown Preferred pharmacy: [facility] [address] [place] [phone] - [address] [facility] [address] - [phone] [facility]; [place] [address] [address] [facility] [phone] Medication Reconciliation: Legend: Stopped, New, Changed, Added to list Medication List Medication Directions Comments Action/Plan acetaminophen (TYLENOL) 325 mg tablet Take 3 tablets by mouth every 6 hours. albuterol HFA (PROVENTIL HFA, VENTOLIN HFA) 90 mcg/actuation inhaler Inhale as instructed. amLODIPine (NORVASC) 10 mg tablet Take 10 mg by mouth once daily. aspirin 81 mg chewable tablet Take 81 mg by mouth once daily. COMPOUNDED PRESCRIPTION One Piece Ostomy Pouch Item Type: Coloplast Sensura One Piece Non-Sterile with Window 07/05-05/01'' ?5/Box ICD 10: Prolapsed Stoma K94.09 COMPOUNDED PRESCRIPTION Paste: Convatec Stomahesive 1 tube ICD 10: Prolapsed Stoma K 94.09 Discontinued: 08/12/2017 11:38 AM On reconcile dispense records cyclobenzaprine (FLEXERIL) 10 mg tablet Take 1 tablet by mouth at bedtime as needed for Muscle Spasm. Med updated at discharge fluticasone (FLONASE) 50 mcg/actuation nasal spray Use 1 [place] in the nose once daily as needed. furosemide (LASIX) 20 mg tablet Take 40 mg by mouth once daily as needed. gabapentin (NEURONTIN) 300 mg capsule Take 2 capsules by mouth daily at bedtime for 90 days. On reconcile dispense records Discontinued: 08/12/2017 11:38 AM D/c BIOFUELS MANAGER loratadine 10 mg cap Take 1 capsule every day by oral route. losartan (COZAAR) 100 mg tablet Take 100 mg by mouth once daily. metoprolol succinate ER (TOPROL XL) 100 mg Tb24 Take 1 tablet by mouth once daily. On reconcile dispense records MULTIVIT WITH IRON,MINERALS (MULTIVITAMIN AND MINERALS ORAL) Take 1 capsule by mouth. nitroglycerin sublingual (NITROSTAT) 0.[address] ONE(1) TABLET UNDER TONGUE NEEDED FOR CHEST PAIN. IF NO PAIN RELIEF CALL 911 oxyCODONE-acetaminophen (PERCOCET 10) 10-325 mg tablet TK 1 T PO BID PRN On reconcile dispense records pravastatin (PRAVACHOL) 40 mg tablet Take 40 mg by mouth daily at bedtime. QUEtiapine (SEROQUEL) 200 mg tablet Take 2 tablets by mouth daily at bedtime. On reconcile dispense records tamsulosin ER (FLOMAX) 0.4 mg cp24 Take 1 capsule every day by oral route. Assessment: Unable to reach patient after two or more unsuccessful outreach attempts. Medication reconciliation points of clarification identified by pharmacist for review with patient : Oxycodone IR 5mg and hydralazine 10mg on reconcile dispense records, need clarification if patient is taking these medications? Not currently on med list Time spent on patient: 30-45 minutes Beulah Hogan PharmD August 14, 2017 9:57 AM Pharmacy Transitional Care Management Outreach ? First attempt to contact patient for TCM outreach was unsuccessful. We will contact patient again on the next business day. ?? Beulah Hogan PharmD August 13, 2017 11:14 AM Pharmacy Transitional Care Management Allergies As of Date: 08/13/2017 Noted Allergy Reaction ALTASEPTIC 12/17/2016 16 - Unknown BRILINTA (TICAGRELOR) 08/09/2017 16 - Unknown CRESTOR (ROSUVASTATIN CALCIUM) 12/17/2016 17 - Myalgia HCTZ (AMILORIDE-HYDROCHLOROTHIAZI*12/17/2016 7 - Swelling OTHER OMEGA-3S 07/06/2017 16 - Unknown Comments: virginielinta RAMIPRIL 12/17/2016 7 - Swelling SIMVASTATIN 12/17/2016 17 - Myalgia VOLTAREN (DICLOFENAC SODIUM) 12/17/2016 16 - Unknown Date Reviewed: 08/09/2017 Reviewed by: Iqra KingRn) MITCHELL Davis - Fully Assessed Reason for Visit: Transition Of Care [4074] Cmt: Hospital discharge 08/12/17 Prescriptions as of 08/13/2017 Sig: CYCLOBENZAPRINE 10 MG TABLET Take 1 tablet by mouth at bed* AMLODIPINE 10 MG TABLET Take 10 mg by mouth once dominik* LORATADINE 10 MG CAPSULE Take 1 capsule every day by o* X TAMSULOSIN 0.4 MG CAPSULE Take 1 capsule every day by o* X OXYCODONE-ACETAMINOPHEN 10 MG* TK 1 T PO BID PRN X ACETAMINOPHEN 325 MG TABLET Take 3 tablets by mouth every* PRAVASTATIN 40 MG TABLET Take 40 mg by mouth daily at * GABAPENTIN 300 MG CAPSULE Take 2 capsules by mouth dominik* METOPROLOL SUCCINATE ER 100 M* Take 1 tablet by mouth once d* QUETIAPINE 200 MG TABLET Take 2 tablets by mouth daily* COMPOUNDED PRESCRIPTION One Piece Ostomy Pouch Item T* COMPOUNDED PRESCRIPTION Paste: Convatec Stomahesive * MULTIVITAMIN AND MINERALS ORAL Take 1 capsule by mouth. ALBUTEROL SULFATE HFA 90 MCG/* Inhale as instructed. 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 Chest pain [R07.9] INVALID FOR*07/24/2017 Priority: A More... Hypertensive crisis [I16.9] INVALID FOR* Priority: B More... Healthcare maintenance [Z00.00] INVALID FOR* Priority: M More... Malnutrition of mild degree (HCC) [E44.1] INVALID FOR* Priority: L More... CHF (congestive heart failure) (HCC) [I50.9] INVALID FOR* Diverticulitis of sigmoid colon [K57.32] INVALID FOR* Class: Recurrent More... Chronic systolic congestive heart failure (HCC)*INVALID FOR* Priority: J More... CAD (coronary artery disease) [I25.10] INVALID FOR* Priority: K More... Hypertensive heart disease with congestive hear*INVALID FOR* Priority: K Hypocalcemia [E83.51] INVALID FOR*06/19/2017 Hypernatremia [E87.0] INVALID FOR*06/19/2017 Hypokalemia [E87.6] INVALID FOR*06/19/2017 Parastomal hernia without obstruction or gangre*INVALID FOR* Abdominal aortic aneurysm without rupture (HCC)*INVALID FOR* Renal cysts, acquired, bilateral [N28.1] INVALID FOR* Arthritis [M19.90] INVALID FOR* Anxiety disorder [F41.9] INVALID FOR* Essential hypertension [I10] INVALID FOR* Nicotine use disorder, F17.2 [F17.200] INVALID FOR* Melena [K92.1] INVALID FOR* Fall [W19.XXXA] INVALID FOR* Encounter Status:Closed by DEENA (PHARMACIST)BEULAH on 08/20/17 ALLIED HEALTH Observed: 08/12/2017 Status: COMPLETED Source: [place] 12:23 PM CLINIC OTHER CAMPUS REPOSITORY O ID: [id number] Author: Emy (Rn) MITCHELL Nair Service: Home Care Services Author Type: Registered Nurse Type: Allied Health Filed: 08/13/2017 12:22 PM Note Text: ENGINEERING AID NOTE SERVICE DATE: 08/13/2017 SERVICE TIME: 12:20 PM Discharge: Aware of Discharge home 08/12 Physician order placed for Home Care Services Home Care Agency: n/a Start of care date: n/a Supplies ordered: n/a Patient/Family agree to discharge plan: n/a TC to patient [phone] and msg left to see if he wants [facility]. No return call yet. SIGNATURE: Emy Nair RN PATIENT NAME: Maxx Knott DATE: August 13, 2017 TIME: 12:20 PM CNDS Observed: 08/12/2017 Status: COMPLETED Source: [place] 11:40 AM CLINIC OTHER CAMPUS REPOSITORY HNO ID: [id number] Author: Stephanie Sanchez Service: Hospital Medicine Author Type: Physician Type: Discharge Summaries Filed: 08/12/2017 11:41 AM Note Text: DISCHARGE SUMMARY PATIENT NAME: Maxx Knott Admission Information Admission Information ADMIT DATE: 08/09/2017 DISCHARGE DATE: 08/12/2017 MY DOCTORS AND MEDICAL TEAM: My Main Hospital Doctor: Stephanie Sanchez Primary Care Provider: Bijan Perez MD My Medical Team Members: Treatment Team: Attending Provider: Stephanie Sanchez Consulting: Johnny Camargo MY CONDITION AT DISCHARGE: Stable REASON I WAS IN THE HOSPITAL: SUMMARY OF WHAT HAPPENED WHILE I WAS IN THE HOSPITAL: S/p fall prior to admit-needs home PT and OT on discharge NOTE: MEDS THAT WILL INCREASE FALL RISK: PERCOCET, FLEXERIL, NEURONTIN, SEROQUEL ? CT C spine multilevel degenerative disc disease and multilevel canal stenosis. rec f/u with PCP and continued PT/OT. ? Back pain. Requests percocet. I will not prescribe. Pt needs to f/u with outpt physician. Per Ratna STARKS, DO had prescribed 15 tabs Pt states he does not have a PCP-I d/w him he needs to follow up with his prescribing physicians. Needs PCP follow up. Pt may use tylenol for pain ? Pipe smoker-I d/w him to quit ? Emphysema seen on CT chest ? 12 mm RUL nodule-f/u with PCP Discharge Disposition Discharge Disposition: Home With Home Care Activity When You Leave the Hospital Other: UP TOLERATED Diet Instructions Other: Whole food plant based diet. [email or web address] for educational literature and free recipes. Follow Up Appointments Follow-Up Appointment With: PCP When: In 1 week Patient/Parents to call for appointment?: Yes Additional Provider to Provider Information: FOLLOW-UP APPOINTMENTS ALREADY SCHEDULED WITH A [facility] PROVIDER: No future appointments. DISCHARGE MEDICATION: Current Discharge Medication List CONTINUE these medications which have CHANGED cyclobenzaprine (FLEXERIL) 10 mg Take 10 mg by mouth at bedtime as needed for Muscle Spasm. Associated Diagnoses:Chronic low back pain, unspecified back pain laterality, with sciatica presence unspecified CONTINUE these medications which have NOT CHANGED amLODIPine (NORVASC) 10 mg Take 10 mg by mouth once daily. loratadine 10 mg cap Take 1 capsule every day by oral route. oxyCODONE-acetaminophen (PERCOCET 10) 10-325 mg tablet TK 1 T PO BID PRN pravastatin (PRAVACHOL) 40 mg Take 40 mg by mouth daily at bedtime. gabapentin (NEURONTIN) 600 mg Take 600 mg by mouth daily at bedtime. Qty: 90 capsule Refills: 0 Associated Diagnoses:Chronic low back pain, unspecified back pain laterality, with sciatica presence unspecified metoprolol succinate ER (TOPROL XL) 100 mg Take 100 mg by mouth once daily. Qty: 90 tablet Refills: 4 QUEtiapine (SEROquel) 400 mg Take 400 mg by mouth daily at bedtime. Qty: 60 tablet Refills: 0 MULTIVIT WITH IRON,MINERALS (MULTIVITAMIN AND MINERALS ORAL) 1 capsule Take 1 capsule by mouth. albuterol HFA (PROVENTIL HFA, VENTOLIN HFA) 90 mcg/actuation inhaler Inhale as instructed. fluticasone (FLONASE) 1 [place] Use 1 [place] in the nose once daily as needed. nitroglycerin sublingual (NITROSTAT) 0.[address] ONE(1) TABLET UNDER TONGUE NEEDED FOR CHEST PAIN. IF NO PAIN RELIEF CALL 911 Qty: 25 tablet Refills: 0 losartan (COZAAR) 100 mg Take 100 mg by mouth once daily. aspirin 81 mg Take 81 mg by mouth once daily. furosemide (LASIX) 40 mg Take 40 mg by mouth once daily as needed. tamsulosin ER (FLOMAX) 0.4 mg cp24 Take 1 capsule every day by oral route. acetaminophen (TYLENOL) 975 mg Take 975 mg by mouth every 6 hours. !! COMPOUNDED PRESCRIPTION One Piece Ostomy Pouch Item Type: Coloplast Sensura One Piece Non-Sterile with Window 07/05-4 1/2'' ?5/Box ICD 10: Prolapsed Stoma K94.09 Qty: 1 Box Refills: 0 !! COMPOUNDED PRESCRIPTION Paste: Convatec Stomahesive 1 tube ICD 10: Prolapsed Stoma K 94.09 Qty: 1 Tube Refills: 0 !! - Potential duplicate medications found. Please discuss with provider. STOP taking these medications isosorbide mononitrate ER (IMDUR) 60 mg Comments: Reason for Stopping: TIME OF CARE: Discharge Management: I personally spent greater than 30 minutes involved in the discharge management of this patient. SIGNATURE: Stephanie Sanchez DO PAGER/CONTACT #: DATE: August 12, 2017 TIME: 11:40 AM PROGRESS Observed: 08/12/2017 Status: COMPLETED Source: [place] 11:05 AM CLINIC OTHER CAMPUS REPOSITORY [facility] ID: [id number] Author: Stephanie Sanchez Service: Hospital Medicine Author Type: Physician Type: Progress Notes Filed: 08/12/2017 11:40 AM Note Text: INTERNAL MEDICINE PROGRESS NOTE SERVICE DATE: 08/12/2017 SERVICE TIME: 11:05 AM ADMITTING PHYSICIAN: Toñito Lacey Subjective CHIEF COMPLAINT: Current Facility-Administered Medications: iv contrast (radiology procedure) INTRAVENOUS DIRECTED PRN iv contrast (radiology procedure) INTRAVENOUS DIRECTED PRN gabapentin 600 mg cap(s) (NEURONTIN) 600 mg ORAL AT BEDTIME atorvastatin 10 mg tab(s) (LIPITOR) 10 mg ORAL AT BEDTIME losartan 100 mg tab(s) (COZAAR) 100 mg ORAL DAILY QUEtiapine 200 mg tab(s) (SEROquel) 200 mg ORAL AT BEDTIME metoprolol succinate ER 100 mg tab(s) (TOPROL XL) 100 mg ORAL DAILY amLODIPine 10 mg tab(s) (NORVASC) 10 mg ORAL DAILY aspirin 81 mg chewable tab(s) 81 mg ORAL DAILY nicotine 14 mg/24 hr 1 Patch (NICODERM) 1 Patch TRANSDERMAL DAILY And nicotine -- REMOVE patch OTHER DAILY And nicotine - verify patch OTHER q 8 H heparin 5,000 Units injection 5,000 Units SUBCUTANEOUS q 12 H nitroglycerin sublingual 0.4 mg tab(s) (NITROQUICK) 0.4 mg SUBLINGUAL PRN oxyCODONE-acetaminophen 5-325 mg 1 tablet (PERCOCET) 1 tablet ORAL q 6 H PRN ipratropium-albuterol 3 mL nebulizer solution (DUONEB) 3 mL INHALATION q 4 H PRN senna-docusate 8.6-50 mg 1 tablet (SENNA-S) 1 tablet ORAL BID PRN INTERVAL HISTORY OF PRESENT ILLNESS: only c/o back pain after fall. Percocet helps Objective PHYSICAL EXAM: Patient Vitals for the past 24 hrs: BP Temp Temp src Pulse Resp SpO2 08/12/17 0715 144/77 37.1 ?C (98.8 ?F) Oral 60 18 100 % 08/11/17 1900 164/67 36.5 ?C (97.7 ?F) - 61 18 93 % Body mass index is 30.26 kg/(m2). GENERAL: Alert, no distress, cooperative- SKIN: No rash- LUNGS: breathing comfortably- ABDOMEN: R ostomy- EXTREMITIES: no swelling- NEURO: Alert- DATA: Diagnostic tests reviewed for today's visit: Significant findings were revd Assessment/Plan S/p fall prior to admit-needs home PT and OT on discharge NOTE: MEDS THAT INCREASE FALL RISK: PERCOCET, FLEXERIL, NEURONTIN, SEROQUEL CT C spine multilevel degenerative disc disease and multilevel canal stenosis. rec f/u with PCP and continued PT/OT. Back pain. Requests percocet. I will not prescribe. Pt needs to f/u with outpt physician. Per Ratna STARKS DO had prescribed 15 tabs Pt states he does not have a PCP-I d/w him he needs to follow up with his prescribing physicians. Needs PCP follow up. Pt may use tylenol for pain Pipe smoker-I d/w him to quit Emphysema seen on CT chest 12 mm RUL nodule-f/u with PCP SIGNATURE: Stephanie Sanchez DO PATIENT NAME: Maxx Knott DATE: August 12, 2017 TIME: 11:05 AM PAGER/CONTACT #: NURSING PROG Observed: 08/11/2017 Status: COMPLETED Source: [place] 2:04 PM CLINIC OTHER CAMPUS REPOSITORY HNO ID: [id number] Author: Radha (Rn) MITCHELL Montelongo Service: Nursing Author Type: Registered Nurse Type: Nursing Progress Note Filed: 08/11/2017 2:05 PM Note Text: Dr. Hernandez was paged due to patients high BP. She ordered to give the hydralazine and lisinopril and recheck. BP was checked again and now is 181/50. Dr. Hernandez was notified. PROGRESS Observed: 08/11/2017 Status: COMPLETED Source: [place] 9:09 AM CLINIC OTHER CAMPUS REPOSITORY HNO ID: [id number] Author: Obi Powers (Fel) Service: (none) Author Type: Fellow Type: Progress Notes Filed: 08/11/2017 4:43 PM Note Text: INPATIENT PROGRESS NOTE SERVICE DATE: 08/11/2017 SERVICE TIME: 1:18 PM PRIMARY SERVICE: Luciano levine Subjective CHIEF COMPLAINT: INTERVAL HPI: HPI: Patient says that when he was getting up from bed this morning he fell forward onto his knees and then onto his belly. He denies hitting his head. He denies loss of consciousness and remembers the fall. Patient has cane and walker at home and has had weakness in the past but says his weakness is a bit worse than usual following fall this morning. ? Imaging done in the emergency department did not show acute osseous injury, but degenerative disc disease of the lumbar spine was noted. Patient also found to have multilevel degenerative disc disease and multilevel canal stenosis at cervical spine. ? ? Current hospital medications: iv contrast (radiology procedure) INTRAVENOUS DIRECTED PRN iv contrast (radiology procedure) INTRAVENOUS DIRECTED PRN gabapentin 600 mg cap(s) (NEURONTIN) 600 mg ORAL AT BEDTIME atorvastatin 10 mg tab(s) (LIPITOR) 10 mg ORAL AT BEDTIME losartan 100 mg tab(s) (COZAAR) 100 mg ORAL DAILY QUEtiapine 200 mg tab(s) (SEROquel) 200 mg ORAL AT BEDTIME metoprolol succinate ER 100 mg tab(s) (TOPROL XL) 100 mg ORAL DAILY amLODIPine 10 mg tab(s) (NORVASC) 10 mg ORAL DAILY aspirin 81 mg chewable tab(s) 81 mg ORAL DAILY nicotine 14 mg/24 hr 1 Patch (NICODERM) 1 Patch TRANSDERMAL DAILY nicotine -- REMOVE patch OTHER DAILY nicotine - verify patch OTHER q 8 H heparin 5,000 Units injection 5,000 Units SUBCUTANEOUS q 12 H nitroglycerin sublingual 0.4 mg tab(s) (NITROQUICK) 0.4 mg SUBLINGUAL PRN oxyCODONE-acetaminophen 5-325 mg 1 tablet (PERCOCET) 1 tablet ORAL q 6 H PRN ipratropium-albuterol 3 mL nebulizer solution (DUONEB) 3 mL INHALATION q 4 H PRN senna-docusate 8.6-50 mg 1 tablet (SENNA-S) 1 tablet ORAL BID PRN Objective PHYSICAL EXAM: BP 138/69 Pulse 60 Temp (Src) 97.9 (Oral) Resp 18 Ht 5' 8 (1.73m) Wt 199 lb (90.3kg) SpO2 98% BMI 30.26 kg/(m2). Physical Exam Performed NECK: No jugulovenous distention, No carotid bruits, Carotid pulse normal contour, Supple BACK: Back symmetric,ROM normal, No CVAT. LUNGS: Lungs clear to auscultation, Good diaphragmatic excursion CARDIAC: Normal S1 and S2; no rubs, murmurs, or gallops ABDOMEN: Abdomen soft, non-tender, BS normal, No masses or organomegaly EXTREMITIES: Extremities normal, no deformities, edema, clubbing or skin discoloration. Good capillary refill., No ulcers NEURO: Gait not examined. SLR negative Sensations in Lower extremities preserved and power 4 plus/5 in extensors and flexors of knee, ankle and hips . Reflexes normal and symmetric. Sensation grossly intact, Cranial nerves II-XII intact DATA: CT chest/abdo: 12 mm right upper lobe nodule. ?This is indeterminate for malignancy. ?Further ?assessment with PET/CT or biopsy would be recommended. ?There are no relevant comparison exams for the chest available at this institution. ?If any prior outside studies exist, comparison would be recommended. ? ? 2. ?Mild emphysema ? 3. ?No acute intrathoracic injury is seen ? ABDOMEN AND PELVIS: ? 1. ?No acute intra-abdominal injury ? ? 2. ?Diverticulosis of the sigmoid ? 3. ?Right upper quadrant diverting colostomy. ?There is a parastomal hernia containing small bowel. ?This has worsened compared to the prior, however appears nonobstructive. CT head and neck: CT BRAIN: 1. ?No acute intracranial abnormality is seen. ?Chronic findings as above. ? ? CT CERVICAL: ? 1. ?No acute osseous injury is seen. ? 2. ?Multilevel degenerative disc disease and multilevel canal stenosis as detailed above. ?The stenosis appears severe at C5-C6 and C6-C7. Diagnostic tests reviewed for today's visit: Most recent labs and imaging results. Assessment/Plan ?Mechanical fall: POA, active Per PT: Home PT Physical Assist at Home Fall precautions Will need to arrange home care. Unable to arrange today. Will need to arrange in AM ? 2. Weakness of lower extremities: POA, active Patient has required cane and walker in the past but says weakness is worse following his fall this morning CT did not show acute osseous injury at the lumbar spine CT C-spine showed degenerative disc disease and canal stenosis ? 3. Coronary artery disease, ischemic cardiomyopathy: POA, stable C/w home medications aspirin 81 mg PO daily, statin toprol 100 mg PO daily Losartan 100 mg PO daily Amlodipine 10 mg PO daily Nitro prn pain No chest pain at this time ? 4. YUSUF: POA, stable Patient has home NIPPV with him ? 5. Pacemaker placement: POA, stable ? 6. Tobacco abuse: POA, active Patient requests nicotine patch ? 7. Colostomy with parastomal hernia: POA, active CT shows that it has worsened since prior Request surgery evaluation Ostomy care/wound care consult ? 8. Incidentally found 12 mm right upper lobe nodule: POA, stable Tobacco abuse history Might need f/u imaging as outpatient as per fleischner criteria ? 9. Diverticulosis: POA, stable Laxatives as needed ? 10. Hypertension: POA, stable Home medications as above for now monitor ? VTE Prophylaxis: Heparin 5000 units Sub Q BID ? Disposition: Acute Rehab possibly, f/u pt ot evaluation SIGNATURE: Obi Powers MD PATIENT NAME: Maxx Knott DATE: August 11, 2017 TIME: 9:09 AM PAGER: Luciano levine SOCIAL WORK Observed: 08/10/2017 Status: COMPLETED Source: [place] 2:53 PM CLINIC OTHER CAMPUS REPOSITORY O ID: [id number] Author: CINDY Prather (Lisw) Service: Social Work Author Type: Health Club Attendant Type: Social Work Filed: 08/10/2017 2:57 PM Note Text: SOCIAL WORK PROGRESS NOTE SERVICE DATE: 08/10/2017 SERVICE TIME: 2:54 PM LOS: 1 day Advanced Directives: Consult received due to patient not having advance directives in place. Met with patient and explained documents.He said he is interested but I can do that anytime Gave patient a packet to read over. Can witness if patient wishes to do documents. Time Spent (minutes): 15 SIGNATURE: CINDY Prather PATIENT NAME: Maxx Knott DATE: August 10, 2017 TIME: 2:54 PM PAGER/CONTACT #: [phone] [facility] Observed: 08/10/2017 Status: COMPLETED Source: [place] 12:20 PM CLINIC OTHER CAMPUS REPOSITORY [facility] ID: [id number] Author: Paulette Muller Office Coord Service: (none) Author Type: (none) Type: Allied Health Filed: 08/10/2017 12:20 PM Note Text: ENGINEERING AID NOTE SERVICE DATE: 08/10/2017 SERVICE TIME: 1220 Referral: Home Care referral received by: CM Will continue to follow for physician orders SIGNATURE: Paulette Muller Office Coord PATIENT NAME: Maxx Knott DATE: August 10, 2017 TIME: 12:20 PM CASE MGT INIT Observed: 08/10/2017 Status: COMPLETED Source: [facility] 12:06 PM CLINIC OTHER CAMPUS REPOSITORY HNO ID: [id number] Author: Taryn KingRn) MITCHELL Hugo Service: Care Management Author Type: Registered Nurse Type: Care Mgt Initial Assessment Filed: 08/10/2017 12:16 PM Note Text: CARE MANAGEMENT: ASSESSMENT AND DISCHARGE PLAN SERVICE DATE: 08/10/2017 SERVICE TIME: 12:06 PM PRIMARY CARE PHYSICIAN: Bijan Perez MD ADMISSION STATUS: Inpatient Needs Prior to Discharge: Home Care Order (for PTOT) MEDICAL: Patient/Home Comfort Advisor Stated Goals: To return home to life as it was Health Insurance: MEDICARE A AND B [facility] Health Issues Impacting Discharge Plan: None Last Admission Date: Previous admit date: 07/23/2017 Is this Within the Past 30 days? Yes Is This a Planned Readmission? No: weakness diagnosis Followed Up with Appointment Prior to Admission: No appointment scheduled Where Did the Patient Come From? Home Intervention Taken to Avoid Future Readmission? Patient to have home care for PTOT Advance Directive: Current Advance Directive: None Office Services Clerk Assisted with AD Completion: Yes Action: Other: See Comment ( consult for AD assistance) Health Literacy: 1. How often do you need to have someone help you when you read instructions, pamphlets, or other written material from your doctor or pharmacy? Never - 1 2. How confident are you filling out medical forms by yourself? Extremely - 1 If Patient scores > 3 on either question, the following interventions were put into place: Patient did not score > 3 FUNCTIONAL AND COGNITIVE/BEHAVIORAL PRIOR TO ADMISSION: Baseline Mental Status: Alert AND Oriented, Person, Place , Time and Situation Functional Status: Independent Does Patient Currently Receive Any Community Services or Home Care? None Equipment Prior to Admission: Cane - Straight Walker Has the Patient Been in a Half-Way Facility in the Past 30 days? No SOCIAL: Living Arrangement: Home Lives With: brother Financial Resources: N/A Primary Contact: Extended Emergency Contact Information Primary Emergency Contact: Mary Knott Address: [address] [place] [address] [address] [place] [id number] [facility] Mobile Relation: Brother Supportive: Yes Other Important Patient Contacts: None Caregiver Assessment: Caregiver is ready, willing and able to meet the patient's needs as recommended by the inter-professional team? No Caregiver Needed Patient's transition needs and plan for meeting these needs: current plan is d/c with [facility] Does the patient have an acute stroke diagnosis, or has the patient had a stroke during this admission? No Medication Adherence: I am convinced of the importance of my prescription medication: Agree completely - 0 I worry that my prescription medication will do more harm than good to me Disagree completely - 0 I feel financially burdened by my [id number] expenses for my prescription medication: Disagree completely - 0 Patient is categorized as low risk < 2 Are you interested in bedside delivery of your medications? No Food Concerns: In the Last Month, Have You had Trouble Getting Food? No trouble getting food During the Last Month, Have You Worried Whether Your Food Would Run Out Before You Had Enough Money to Buy More? No Is the Patient Psychosocially Complex? No ASSESSMENT AND PLAN: Medical Needs: None Psychosocial Needs: None FREEDOM OF CHOICE EXPLAINED: Yes disclosed [facility] is affiliated with [facility] for [facility]. 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 +[facility] coverage, [facility] [place]. +driving. Agreeable to [facility] at d/c. No other needs identified at this time. Will continue to follow. SIGNATURE: Taryn Hugo RN PATIENT NAME: Maxx Knott DATE: August 10, 2017 TIME: 12:06 PM PAGER/CONTACT #: [phone] THERAPY NT Observed: 08/10/2017 Status: COMPLETED Source: [place] 10:59 AM CLINIC OTHER CAMPUS REPOSITORY HNO ID: [id number] Author: Annita (Otr/Chris Holcomb Service: Occupational Therapy Author Type: Occupational Therapist Type: Therapy (PT/OT/Speech/Resp) Filed: 08/10/2017 11:13 AM Note Text: Occupational Therapy Evaluation SERVICE DATE: 08/10/2017 SERVICE TIME: 1019 to 1043 ROOM: [place] [address] Recommended Discharge Disposition: Home OT Anticipated Discharge Needs: Physical Assist at Home Physical Assist at Home for: Transportation;Shopping;Safety;Laundry;Cleaning OT Recommendations to Nursing: To Bathroom for ADL?s /and or Toileting;With assist of 1 person Equipment: Wheeled Walker OT 6 Clicks Score: 21 Precautions/Activity Restrictions: Fall Risk Precaution/Activity Restriction Comments: Colostomy ASSESSMENT: OT Evaluation Low Complexity: Occupational Profile - Brief review of patient's medical record completed (please see current hospital course of evaluation). Occupational Performance - Pt presents with deficits in grooming, bathing/dressing, functional transfers, functional mobility, home management performance, decreased safety awareness, decreased insight into deficits Complexity in Clinical Decision Making - The extent of clinical reasoning was low, number of treatment options limited, minimal need for modifications during the evaluation process due to SOB with exertion, fatigue; comorbidities present to affect patient's occupational performance include CAD with h/o CABG, Pacemaker, colostomy. Patient Disposition at Start of Session: OOB in Chair Patient Disposition at End of Session: OOB in Chair;Call Alvarez in Reach Tolerated Full Session Occupational Therapy Problem List: Education Deficit;Safety Deficits;Impaired Self Care;Decreased Activity Tolerance;Decreased Strength;Functional Mobility Impairment Patient /Caregiver Goals: Go Home Goals for Plan of Care: Able to perform HEP with: Modified Independent (for BUE strengthening to enhance ADL) Feeding with: Independent Grooming with: Modified Independent Upper Body Bathing with: Modified Independent Upper Body Dressing with: Modified Independent Lower Body Dressing with: Modified Independent Toilet Hygiene with: Modified Independent Toilet Transfer with: Modified Independent Tolerate (minutes of functional activity): 30 Functional Activity with: Modified Independent Additional Goal 1: Patient will complete home mobility /ADL item retrieval for ADL tasks at modified independent level with wheeled walker Demonstrate Competence With Education with: Verbal Cues Only (energy conservation, pursed lip breathing) Increased Awareness of Cognitive Impairments as Related to ADL's/IADL's: Demonstrated (ADL safety) Rehab Potential: Good PLAN: Treatment Frequency (times per week): 5 (1-5 times per week) Current admission Treatment Interventions: Education;Self Care / Home Management;Energy Conservation Training;Strengthening;Functional Mobility Training Plan of Care developed with: Patient TREATMENT INTERVENTIONS: Therapy Diagnosis: Reduced mobility-other;Decreased activities of daily living (ADL);Muscle Weakness (generalized) Interventions Provided: Evaluation;Self Nursing Home Management (81029) $ Evaluation-Low (50358) Billed Units: 1 unit $ Evaluation-Moderate (65952) Billed Units: 0 units Self Nursing Home Management (30542) Treatment Minutes: 9 1 unit Skilled Intervention(s): Instructed in energy conservation and use of activity pacing techniques to increase return to ADL performance. Education in pursed lip breathing, as well as standing/seated rests with ADL and ADL mobility with wheeled walker. Walker safety education to decrease risk for falls. Education for bed mobility safety with use of log roll technique, and bed rail to decrease risk for falls from bed. Patient reports having one railing, but may benefit from switching to side of bathroom where usually gets up or installing a second 1/2 rail/between mattress on opposite side. Provided instruction for tub/shower transfer safety in home setting. Education in benefit of continued therapy to improve strength, activity tolerance and safety with ADL and light home management tasks. Monitored vitals during session due to c/o SOB. O2 Sats 99% on room air during session. HR 65-72 BPM. RN notified of patient c/o pain and addressing. Collaboration with patient, PT, and care management for discharge needs/planning. Total Timed Code Treatment Minutes: 9 Total Treatment Time (minutes): 24 FUNCTIONAL G CODE: OT 6 Clicks Score: 21 (08/10/17 1019) Self Care Current Status (G8987): CJ (08/10/17 1019) Self Care Goal Status (G8988): CI (08/10/17 101) Based on clinical assessment and the score on the 6 Clicks Functional Assessment Tool, the G code and corresponding severity modifiers are documented above. SUBJECTIVE: Current Hospital Course: Chart reviewed; Patient admitted s/p fall at home.Patient says that when he was getting up from bed this morning he fell forward onto his knees and then onto his belly. He denies hitting his head. He denies loss of consciousness and remembers the fall. Patient has cane and walker at home and has had weakness in the past but says his weakness is a bit worse than usual following fall this morning. Reports increased back pain as well, with medical record from imaging reporting: degenerative disc disease of the lumbar spine was noted. Patient also found to have multilevel degenerative disc disease and multilevel canal stenosis at cervical spine. Patient with chronic parastomal hernia-non surgical at this time .Colostomy present. 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 Reports feeling much better than yesterday when I thought it would take me a month to walk again. I really don't know what happened. Patient in agreement with recommendation for home health care OT/PT/services to return safely to highest level of function. Patient states some concerns regarding home colostomy care, with recommendation to discuss with colostomy care nurse and home health organization for follow up for [facility] needs. Patient with c/o 5/10 pain in low/middle back and mild in area of colostomy. RN aware and addressing for patient comfort, with OT assisting with mobility and repositioning. Patient with some SOB with exertion , with energy conservation education initiated to address. Home Environment Patient Lives With: Family (Patient helps care for brother who is older, poor health) Assistance Available: PRN (Brother lives with him, but patient usually assists brother) Entry To Home: Elevator (6th floor, elevators malfunction often per patient) Number Of Stairs To Bed/Bath: Apartmentn all one level, small Tub/Shower Type: tub/shower with all DME Laundry: in building Equipment Owned: Cane;Wheeled Walker Prior Functional Level: Within Functional Limits (Ind ADL/IADL.Drives,uses scooter in stores,no device in home) OBJECTIVE: Pleasant, cooperative. Grossly oriented. Mildly impaired memory/slight confusion x 2 during session, then resolved. Responsiveness: Alert Follows Commands: 2-step Commands Executive Function Deficits: Judgement;Problem Solving;Safety Awareness Safety Awareness Deficit: Minimal impairment Judgement Deficit: Minimal impairment Problem Solving Deficit: Minimal impairment CURRENT FUNCTIONAL STATUS: Current Activities of Daily Living Assist Level Feeding Set Up Grooming Set Up Bathing Upper Body Set Up Bathing Lower Body Stand By Assistance Dressing Upper Body Stand By Assistance Dressing Lower Body Stand By Assistance Toileting Stand By Assistance Functional Mobility Assist Level Sit to Stand Stand By Assistance Stand to Sit Stand By Assistance Bed to Chair Stand By Assistance Stand Pivot Wheeled Walker Toilet/Commode Stand By Assistance Functional Mobility Stand By Assistance Wheeled Walker Range Of Motion: Within Functional Limits Strength: Within Functional Limits Except Location Strength Not WFL: Other Location Strength Not WFL Other Site Strength: Mild generalized weakness; fatigues quickly Balance: Dynamic Sitting;Static Standing;Dynamic Standing Dynamic Sitting Balance: Modified Independent Static Standing Balance: Supervision Dynamic Standing Balance: Stand By Assistance Activity Tolerance: Standing Activity Standing Activity: grooming tasks at sink, home mobility for ADL with wheeled walker Standing Activity Tolerance (in minutes): 5 (with standing rests) Please see discipline specific clinical documentation flowsheet for complete details for this therapy evaluation/treatment. SIGNATURE: NORMA Monet/L PATIENT NAME: Maxx Knott DATE: August 10, 2017 TIME: 10:59 AM PAGER: [phone] CONSULT PROG Observed: 08/10/2017 Status: COMPLETED Source: [place] 10:36 AM CLINIC OTHER CAMPUS REPOSITORY HNO ID: [id number] Author: Luana KingRn) MITCHELL Sawyer Service: Wound/Ostomy Author Type: Registered Nurse Type: Consult Progress Note Filed: 08/10/2017 10:44 AM Note Text: WOUND CARE NURSE CONSULT NOTE SERVICE DATE: 08/10/2017 SERVICE TIME: 1000 REASON FOR VISIT: Ostomy TIME SPENT (minutes): 30 Documentation from Wound Expert can be found in scanned documents. Patient seen for ostomy care. Colostomy pouch intact, stoma prolapsed. Patient says pouch was changed a couple of days ago, he does not want the pouch changed now. Ostomy supplies left at bedside. Bedside RN to bring additional supplied to patient room. Bedside RN to page with any concerns. Recommend home health care to assist with colostomy care at home. tube rebuilder to follow. SIGNATURE: Luana Sawyer RN PATIENT NAME: Maxx Knott DATE: August 10, 2017 TIME: 10:37 AM CONTACT#: [id number] THERAPY NT Observed: 08/10/2017 Status: COMPLETED Source: [place] 9:28 AM CLINIC OTHER CAMPUS REPOSITORY HNO ID: [id number] Author: Radhames (Pt) Marilyn Service: Physical Therapy Author Type: Physical Therapist Type: Therapy (PT/OT/Speech/Resp) Filed: 08/10/2017 9:39 AM Note Text: Physical Therapy Evaluation SERVICE DATE: 08/10/2017 SERVICE TIME: 820 to 854 ROOM: [place] [address] Recommended Discharge Disposition: Home PT Anticipated Discharge Needs: Physical Assist at Home Physical Assist at Home for: Transportation Recommended Discharge Equipment: No equipment needs anticipated PT Recommendations to Nursing: Ambulate with device;To bathroom;In halls;OOB for Meals;With assist of 1 person (stand by assist) Device: Wheeled Walker PT 6 Clicks Score: 22 Precautions/Activity Restrictions: Fall Risk Precaution/Activity Restriction Comments: Colostomy bag ASSESSMENT : Patient presents with a medically stable condition with limited functional impairments which minimally impact safe mobility. The patient will require skilled therapy for PT problems that may include balance, gait safety with or without an assitive device and home safety education. Patient requiring a front wheeled walker for ambulation at this time, below his baseline. Weakness in posterior lower extremities and severely limited trunk extension, patient will benefit from skilled physical therapy after discharge from hospital. 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 Patient Disposition at Start of Session: Supine in Bed Patient Disposition at End of Session: OOB in Chair;Call Alvarez in Reach Tolerated Full Session Physical Therapy Problem List: Education Deficit;Pain;Safety Deficits;Decreased Activity Tolerance;Decreased Strength;Functional Mobility Impairment;Balance Impaired Patient /Caregiver Goals: Go Home Goals for Plan of Care: Ambulate with: Independent Distance: 250 Device: (none) Goal: Gra-hi-iqkak x5 <12 seconds to demonstrate functional strength and decreased risk of falls Rehab Potential: Good PLAN: Treatment Frequency (times per week): 3 (1-3) Current admission Treatment Interventions: Education;Self Care / Home Management;Energy Conservation Training;Strengthening;Functional Mobility Training;Balance Training;Pain Management Plan of Care developed with: Patient TREATMENT INTERVENTIONS: Therapy Diagnosis: Reduced mobility-other;Muscle Weakness (generalized);Unsteadiness on feet;Difficulty walking-musculoskeletal Interventions Provided: Evaluation;Therapeutic Activity (45111) $ Evaluation-Low (75770) Billed Units: 1 unit Therapeutic Activity (86003) Treatment Minutes: 10 1 unit Skilled Intervention(s): Instruction in sit to stand technique with proper hand placement and body positioning at edge of bed/chair. Instruction in stand to sit technique with lower extremities touching chair/bed and reaching back for surface. Education with physiological benefits of upright sitting in chair vs bed, mobility safety including proper placement of body/feet with use of front wheeled walker for safe ambulation to decrease fall risk and considerations for assistive device use, home safety and avoiding falls (handout given), disease process, benefits of physical therapy to improve functional strength AND increase limited trunk range of motion AND decrease fall risk, energy conservation. Total Timed Code Treatment Minutes: 10 Total Treatment Time (minutes): 25 FUNCTIONAL G CODE: PT 6 Clicks Score: 22 (08/10/17820) Mobility: Walking and Moving Around Current Status (G8978): CJ (08/10/17820) Mobility: Walking and Moving Around Goal Status (G8979): CI (08/10/17820) Based on clinical assessment and the score on the 6 Clicks Functional Assessment Tool, the G code and corresponding severity modifiers are documented above. SUBJECTIVE: Current Hospital Course: Chart reviewed; Patient says that when he was getting up from bed this morning he fell forward onto his knees and then onto his belly. He denies hitting his head. He denies loss of consciousness and remembers the fall. Admitted for fall, lower extremities weakness, all CT (-) for acute injury. History includes chronic parastomal hernia. Reason for Physical Therapy Consult : Post Acute Placement; LE weakness Relevant Past Medical History: Pacer, colostomy, CAD s/p CABG PAST MEDICAL HISTORY Diagnosis Date - AAA (abdominal aortic aneurysm) without rupture ([facility]) 05/13/[address] a/p - CAD (coronary artery disease) 2005 CAD s/p CABG x3 ([id number]-RUH-yovzwp, BMX-HAR-qcwdmi, VSV-WF1-unadmslr) (2006 at [facility]) - Current every day smoker PT SMOKES A PIPE - Diverticulitis Perforated Diverticulitis - Diverticulitis of sigmoid colon 05/15/2017 Added automatically from request for surgery [id number] - Pacemaker 02/16/2017 s/p PPM () 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 Fall happened at 3am when trying to go to bathroom, was able to get off floor, but later was not able to walk. Reports lower extremities paraesthesia has resolved and strength has improved significantly. 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) Entry To Home: Elevator (6th floor, elevator they don't work half the time) Number Of Stairs To Bed/Bath: 0 (small apt) Equipment Owned: Cane;Wheeled Walker Prior Functional Level: Within Functional Limits (ambulates without AD; scooter in grocery store; drives) OBJECTIVE: CURRENT FUNCTIONAL STATUS: Current Functional Mobility Assist Level Additional Information Rolling Supine to Sit Supervision Sit to Supine Scooting Sit to Stand Supervision Stand to Sit Supervision Bed to Chair Toilet/Commode Gait Stand By Assistance Gait Device: Wheeled Walker Gait Distance (feet): 220 Stairs Curb Step Car Transfer General Gait Deviations: Grecia decreased;Step length decreased;Flexed trunk posture;Non-functional gait speed (Decreased foot clearance) Balance: Dynamic Standing Dynamic Standing Balance: (Fair +) Activity Tolerance: Standing Activity Standing Activity: ambulation Standing Activity Tolerance (in minutes): 5 Please see discipline specific clinical documentation flowsheet for complete details for this therapy evaluation/treatment. SIGNATURE: Radhames Sanders PT PATIENT NAME: Maxx Knott DATE: August 10, 2017 TIME: 9:28 AM PAGER/CONTACT #: [phone] PROGRESS Observed: 08/10/2017 Status: COMPLETED Source: [place] 9:20 AM CLINIC OTHER CAMPUS REPOSITORY HNO ID: [id number] Author: John Roland Service: Hospital Medicine Author Type: Physician Type: Progress Notes Filed: 08/10/2017 9:58 AM Note Text: INTERNAL MEDICINE PROGRESS NOTE SERVICE DATE: 08/10/2017 SERVICE TIME: 09 Subjective Pt doing well today. Feels back pain improving since he has been here. Lives home with brother. Eating okay. Using walker. Current Facility-Administered Medications: iv contrast (radiology procedure) INTRAVENOUS DIRECTED PRN iv contrast (radiology procedure) INTRAVENOUS DIRECTED PRN gabapentin 600 mg cap(s) (NEURONTIN) 600 mg ORAL AT BEDTIME atorvastatin 10 mg tab(s) (LIPITOR) 10 mg ORAL AT BEDTIME losartan 100 mg tab(s) (COZAAR) 100 mg ORAL DAILY QUEtiapine 200 mg tab(s) (SEROquel) 200 mg ORAL AT BEDTIME metoprolol succinate ER 100 mg tab(s) (TOPROL XL) 100 mg ORAL DAILY amLODIPine 10 mg tab(s) (NORVASC) 10 mg ORAL DAILY aspirin 81 mg chewable tab(s) 81 mg ORAL DAILY nicotine 14 mg/24 hr 1 Patch (NICODERM) 1 Patch TRANSDERMAL DAILY And nicotine -- REMOVE patch OTHER DAILY And nicotine - verify patch OTHER q 8 H heparin 5,000 Units injection 5,000 Units SUBCUTANEOUS q 12 H nitroglycerin sublingual 0.4 mg tab(s) (NITROQUICK) 0.4 mg SUBLINGUAL PRN oxyCODONE-acetaminophen 5-325 mg 1 tablet (PERCOCET) 1 tablet ORAL q 6 H PRN ipratropium-albuterol 3 mL nebulizer solution (DUONEB) 3 mL INHALATION q 4 H PRN senna-docusate 8.6-50 mg 1 tablet (SENNA-S) 1 tablet ORAL BID PRN Objective PHYSICAL EXAM: Patient Vitals for the past 24 hrs: BP Temp Temp src Pulse Resp SpO2 Height Weight 08/10/17 0712 156/74 36.6 ?C (97.9 ?F) Axillary 61 18 100 % - - 08/10/17 0424 136/51 36.6 ?C (97.9 ?F) Oral 63 18 97 % - - 08/09/172025 150/54 37.2 ?C (99 ?F) Oral 70 18 98 % 172.7 cm (5' 8) 90.3 kg (199 lb) 08/09/172011 146/65 - - 70 18 - - - 08/09/17 1724 156/71 - - 64 18 - - - 08/09/17 1523 168/70 - - 60 16 100 % - - 08/09/17 1219 165/66 36.8 ?C (98.2 ?F) Oral 63 18 99 % 172.7 cm (5' 8) 90.7 kg (200 lb) Body mass index is 30.26 kg/(m2). GENERAL: alert, no distress LUNGS: cta/ bl no wheeze CARDIAC: s1s2 rrr ABDOMEN: Soft, colostomy bag noted EXTREMITIES: no edema NEURO: aox3 DATA: Diagnostic tests reviewed for today's visit: Component Latest Ref Rng AND Units 08/10/2017 WBC 4.23 - 9.07 thou/cmm 7.41 RBC 4.63 - 6.08 mil/cmm 3.93 (L) HGB 13.7 - 17.5 g/dL 12.2 (L) Hematocrit 40.1 - 51.0 % 36.0 (L) MCV 83.2 - 95.6 fl 91.6 MCH 25.7 - 32.2 pg 31.0 MCHC 32.3 - 36.5 % 33.9 RDW 11.6 - 14.4 % 14.0 RDW-SD 36.1 - 45.8 fl 47.3 (H) Platelet Count 141 - 365 thou/cmm 295 MPV 8.7 - 12.0 fl 10.3 Seg Neutrophil % 54.2 Immature Grans % 0.30 Lymphocyte % 33.9 Monocyte % 9.0 Eosinophil % 2.2 Basophil % 0.4 Seg. Neut. # 1.78 - 5.38 thou/cmm 4.02 Immature Grans # 0.00 - 0.05 thou/cmm 0.02 Lymphocyte # 0.84 - 2.85 thou/cmm 2.51 Monocyte # 0.30 - 0.82 thou/cmm 0.67 Eosinophil # 0.04 - 0.54 thou/cmm 0.16 Basophil # 0.01 - 0.08 thou/cmm 0.03 Sodium 136 - 145 mEq/L 139 Potassium 3.5 - 5.1 mEq/L 3.6 Chloride 98 - 107 mEq/L 104 CO2 21 - 32 mEq/L 30 Glucose 70 - 99 mg/dL 97 BUN 7 - 18 mg/dL 15 Creatinine 0.67 - 1.17 mg/dL 0.92 Calcium 8.5 - 10.1 mg/dL 8.9 Anion Gap 8 - 16 9 Magnesium 1.6 - 2.6 mg/dL 2.2 Phosphorus 2.5 - 4.9 mg/dL 4.0 eGFR >60mL/min/1.73m2 >60 Assessment/Plan 1. Mechanical fall: POA, active PT/OT consult Fall concern ? 2. Weakness of lower extremities: POA, active PT OT recs CT C-spine showed degenerative disc disease and canal stenosis ? 3. Coronary artery disease, ischemic cardiomyopathy: POA, stable Cont Aspirin, statin, toprol, arb, amlodipine, Nitro prn ? 4. YUSUF: POA, stable Patient has home NIPPV with him ? 5. Pacemaker placement: POA, stable ? 6. Tobacco abuse: POA, active patch ? 7. Colostomy with parastomal hernia: POA, active Surgery has signed off no intervention at this moment Ostomy care/wound care consult F//u [facility] clinic ? 8. Incidentally found 12 mm right upper lobe nodule: POA, stable Tobacco abuse May need outpt f/u 9. Diverticulosis: POA, stable Senna s ? 10. Hypertension: POA, stable -cont home meds. Cont to monitor John Roland MD August 10, 2017 9:58 AM SIGNATURE: John Roland MD PATIENT NAME: Maxx Knott DATE: August 10, 2017 TIME: 9:20 AM PAGER/CONTACT #: [email or web address] HEMOGRAM/DIFF Collected: 08/10/2017 Status: F Source: [facility] 4:33 AM HEALTH SYSTEM REPOSITORY TYPE CODE TESTS RESULT OUT OF REFERENCE UNITS RANGE LAB WBC(LOINC) 4.23-9.07 thou/cmm WBC 7.41 LAB RBC(LOINC) 4.63-6.08 mil/cmm Low RBC 3.93 LAB HGB(LOINC) 13.7-17.5 g/dL Low Hgb 12.2 LAB HCT(LOINC) 40.1-51.0 % Low Hct 36.0 LAB MCV(LOINC) 83.2-95.6 fl MCV 91.6 LAB MCH(LOINC) 25.7-32.2 pg MCH 31.0 LAB MCHC(LOINC 32.3-36.5 % ) MCHC 33.9 LAB RDW(LOINC) 11.6-14.4 % RDW 14.0 LAB RDWSD(LOIN 36.1-45.8 fl C) RDW SD High 47.3 LAB PLT(LOINC) 141-365 thou/cmm Platelet 295 LAB MPV(LOINC) 8.7-12.0 fl MPV 10.3 LAB SEG(LOINC) % Seg Neutrophil 54.2 LAB IGRE(LOINC % ) Immature Grans 0.30 LAB LYMPH(LOIN % C) Lymphocyte 33.9 LAB MNO(LOINC) % Monocyte 9.0 LAB EOSIN(LOIN % C) Eosinophil 2.2 LAB BASO(LOINC % ) Basophil 0.4 LAB SEGN(LOINC 1.78-5.38 thou/cmm ) Abs. Neut 4.02 LAB IGAB(LOINC 0.00-0.05 thou/cmm ) Abs Immature Grans 0.02 LAB LYMN(LOINC 0.84-2.85 thou/cmm ) Abs. Lymph 2.51 LAB MONON(LOIN 0.30-0.82 thou/cmm C) Abs. [place] 0.67 LAB EOSN(LOINC 0.04-0.54 thou/cmm ) Abs. Eosin 0.16 LAB BASON(LOIN 0.01-0.08 thou/cmm C) Abs. Baso 0.03 Performed By: #### CBCD1 #### [address] [address] BASIC PANEL Collected: 08/10/2017 Status: F Source: [facility] 4:33 AM HEALTH SYSTEM REPOSITORY TYPE CODE TESTS RESULT OUT OF REFERENCE UNITS RANGE LAB NA(LOINC) 136-145 mEq/L Sodium Blood 139 LAB K(LOINC) 3.5-5.1 mEq/L Potassium Blood 3.6 LAB CL(LOINC) 98-107 mEq/L Chloride Blood 104 LAB CO2(LOINC) 21-32 mEq/L CO2 Blood 30 LAB GLU(LOINC) 70-99 mg/dL Glucose Blood 97 LAB BUN(LOINC) 7-18 mg/dL BUN Blood 15 LAB CREA(LOINC 0.67-1.17 mg/dL ) Creatinine Blood 0.92 LAB CA(LOINC) 8.5-10.1 mg/dL Calcium Blood 8.9 LAB ANGAP(LOIN 8-16 C) Anion Gap 9 Performed By: #### P8 #### [place] [address] MAGNESIUM BLOOD Collected: 08/10/2017 Status: F Source: [facility] 4:33 AM HEALTH SYSTEM REPOSITORY TYPE CODE TESTS RESULT OUT OF REFERENCE UNITS RANGE LAB MAG(LOINC) 1.6-2.6 mg/dL Magnesium Blood 2.2 Performed By: #### MAG #### [place] [address] PHOSPHORUS BLOOD Collected: 08/10/2017 Status: F Source: [facility] 4:33 AM HEALTH SYSTEM REPOSITORY TYPE CODE TESTS RESULT OUT OF REFERENCE UNITS RANGE LAB PHOS(LOINC 2.5-4.9 mg/dL ) Phosphorus Blood 4.0 Performed By: #### PHOS #### [place] [address] MDRD GFR Collected: 08/10/2017 Status: F Source: [facility] 4:33 AM HEALTH SYSTEM REPOSITORY TYPE CODE TESTS RESULT OUT OF RANGE REFERENCE UNITS LAB GFRFN(LOINC >60mL/min/1.73m ) 2 eGFR >60 Result Comment: If the patient is , multiply the result by 1.210. Performed By: #### GFR #### [place] [address] NURSING PROG Observed: 08/10/2017 Status: COMPLETED Source: [place] 4:30 AM CLINIC OTHER CAMPUS REPOSITORY HNO ID: [id number] Author: Tierra KingRn) MITCHELL Chatman Service: Nursing Author Type: Registered Nurse Type: Nursing Progress Note Filed: 08/10/2017 7:20 AM Note Text: Pt colostomy half way full. I asked pt could I empty it. He stated that he would burp it and it's always half full and doesn't need to be emptied at this time. I told pt when he's ready to empty the colostomy to let us know and we can assist him. POTASSIUM BLOOD Collected: 08/09/2017 Status: F Source: [facility] 10:15 PM HEALTH SYSTEM REPOSITORY TYPE CODE TESTS RESULT OUT OF REFERENCE UNITS RANGE LAB K(LOINC) 3.5-5.1 mEq/L Low Potassium Blood 3.4 Performed By: #### K #### [facility] [address] [place] [address] CONSULT Observed: 08/09/2017 Status: COMPLETED Source: [place] 9:48 PM CLINIC OTHER CAMPUS REPOSITORY HNO ID: [id number] Author: Mary Urrutia Service: General Surgery Author Type: Physician Type: Consults Filed: 08/10/2017 4:39 PM Note Text: CONSULT: General Surgery SERVICE SERVICE DATE: 08/09/2017 SERVICE TIME: 9:48 PM REASON FOR CONSULT: Parastomal hernia REQUESTING PHYSICIAN: [place] PRIMARY CARE PHYSICIAN: Bijan Perez MD Subjective Mr. Knott is a 67 year old male who presents for fall. He apparently fell out of bed and has back pain. CT imaging showed no traumatic injuries. CT A/P showed a parastomal hernia increased in size compared to prior study. It contains small bowel and is nonobstructive. Clinically the patient is non obstructed. He has no abdominal pain. He has had no problems with his stoma he states. The stoma is pink and viable. It prolapses but is easily reducible. This patient follows up as an outpatient with [facility] clinic. He last saw them in May where he was scheduled for elective colostomy reversal. The procedure was rescheduled due to pt having NSTEMI with GREY placemen, with recs to continue OAC for 3-6 months. FUNCTIONAL STATUS: Independent PAST MEDICAL HISTORY Diagnosis Date - AAA (abdominal aortic aneurysm) without rupture (HCC) 05/13/[address] a/p - CAD (coronary artery disease) 2006 CAD s/p CABG x3 (MPSC-WFW-ojbdcg, IKE-WMS-mdencl, DNO-JO3-fcqukual) (2006 at [place]) - Current every day smoker PT SMOKES A PIPE - Diverticulitis Perforated Diverticulitis - Diverticulitis of sigmoid colon 05/15/2017 Added automatically from request for surgery [id number] - Pacemaker 02/16/2017 s/p PPM ([facility]) 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 - Peritonitis (HCC) PAST SURGICAL HISTORY Procedure Laterality Date - APPENDECTOMY HX - COLOSTOMY 07/2016 Diverting Loop Colostomy of the Transverse Colon - HEART SURGERY HX triple bypass 10 yrs ago - PPM IMPLANT - STENT - CORONARY FAMILY HISTORY Problem Relation Age of Onset - Coronary Artery Disease Father - Hyperlipidemia Father Social History Substance Use Topics - Smoking status: Current Every Day Smoker Packs/day: 0.50 Years: 35.00 Types: Pipe, Cigarettes - Smokeless tobacco: Never Used Comment: Quit cigarettes 11-16-16 now smoking 4 pipes as of 04-18-17 - Alcohol use No Prescriptions Prior to Admission: amLODIPine (NORVASC) 10 mg tablet Take 10 mg by mouth once daily. Disp: Rfl: loratadine 10 mg cap Take 1 capsule every day by oral route. Disp: Rfl: Past Week at 0900 oxyCODONE-acetaminophen (PERCOCET 10) 10-325 mg tablet TK 1 T PO BID PRN Disp: Rfl: 07/20/2017 at 0900 pravastatin (PRAVACHOL) 40 mg tablet Take 40 mg by mouth daily at bedtime. Disp: Rfl: 07/20/2017 at 2100 cyclobenzaprine (FLEXERIL) 10 mg tablet Take 1 tablet by mouth daily at bedtime. Disp: 90 tablet Rfl: 0 07/20/2017 at 2100 gabapentin (NEURONTIN) 300 mg capsule Take 2 capsules by mouth daily at bedtime for 90 days. Disp: 90 capsule Rfl: 0 05/15/2017 at Unknown time metoprolol succinate ER (TOPROL XL) 100 mg Tb24 Take 1 tablet by mouth once daily. Disp: 90 tablet Rfl: 4 07/21/2017 at 0900 QUEtiapine (SEROQUEL) 200 mg tablet Take 2 tablets by mouth daily at bedtime. Disp: 60 tablet Rfl: 0 07/21/2017 at 2100 MULTIVIT WITH IRON,MINERALS (MULTIVITAMIN AND MINERALS ORAL) Take 1 capsule by mouth. Disp: Rfl: 07/21/2017 at 0900 albuterol HFA (PROVENTIL HFA, VENTOLIN HFA) 90 mcg/actuation inhaler Inhale as instructed. Disp: Rfl: 05/13/2017 fluticasone (FLONASE) 50 mcg/actuation nasal spray Use 1 [place] in the nose once daily as needed. Disp: Rfl: 07/21/2017 at 0900 nitroglycerin sublingual (NITROSTAT) 0.[address] ONE(1) TABLET UNDER TONGUE NEEDED FOR CHEST PAIN. IF NO PAIN RELIEF CALL 911 Disp: 25 tablet Rfl: 0 07/21/2017 at Unknown time losartan (COZAAR) 100 mg tablet Take 100 mg by mouth once daily. Disp: Rfl: 07/21/2017 at 0900 aspirin 81 mg chewable tablet Take 81 mg by mouth once daily. Disp: Rfl: 07/21/2017 at 0900 furosemide (LASIX) 20 mg tablet Take 40 mg by mouth once daily as needed. Disp: Rfl: 07/20/2017 at Unknown time tamsulosin ER (FLOMAX) 0.4 mg cp24 Take 1 capsule every day by oral route. Disp: Rfl: 07/20/2017 at Unknown time acetaminophen (TYLENOL) 325 mg tablet Take 3 tablets by mouth every 6 hours. Disp: Rfl: isosorbide mononitrate ER (IMDUR) 60 mg 24 hr tablet Take 1 tablet by mouth once daily. (Patient not taking: Reported on 07/30/2017 ) Disp: 30 tablet Rfl: 0 Not Taking at Unknown time COMPOUNDED PRESCRIPTION One Piece Ostomy Pouch Item Type: Coloplast Sensura One Piece Non-Sterile with Window 07/05-05/01'' ?5/BoxICD 10: Prolapsed Stoma K94.09 Disp: 1 Box Rfl: 0 05/13/2017 COMPOUNDED PRESCRIPTION Paste: Convatec Stomahesive 1 tubeICD 10: Prolapsed Stoma K 94.09 Disp: 1 Tube Rfl: 0 05/13/2017 Current hospital medications: iv contrast (radiology procedure) INTRAVENOUS DIRECTED PRN iv contrast (radiology procedure) INTRAVENOUS DIRECTED PRN gabapentin 600 mg cap(s) (NEURONTIN) 600 mg ORAL AT BEDTIME atorvastatin 10 mg tab(s) (LIPITOR) 10 mg ORAL AT BEDTIME [START ON 08/10/2017] losartan 100 mg tab(s) (COZAAR) 100 mg ORAL DAILY QUEtiapine 200 mg tab(s) (SEROquel) 200 mg ORAL AT BEDTIME [START ON 08/10/2017] metoprolol succinate ER 100 mg tab(s) (TOPROL XL) 100 mg ORAL DAILY [START ON 08/10/2017] amLODIPine 10 mg tab(s) (NORVASC) 10 mg ORAL DAILY [START ON 08/10/2017] aspirin 81 mg chewable tab(s) 81 mg ORAL DAILY nicotine 14 mg/24 hr 1 Patch (NICODERM) 1 Patch TRANSDERMAL DAILY [START ON 08/10/2017] nicotine -- REMOVE patch OTHER DAILY [START ON 08/10/2017] nicotine - verify patch OTHER q 8 H heparin 5,000 Units injection 5,000 Units SUBCUTANEOUS q 12 H nitroglycerin sublingual 0.4 mg tab(s) (NITROQUICK) 0.4 mg SUBLINGUAL PRN oxyCODONE-acetaminophen 5-325 mg 1 tablet (PERCOCET) 1 tablet ORAL q 6 H PRN ipratropium-albuterol 3 mL nebulizer solution (DUONEB) 3 mL INHALATION q 4 H PRN senna-docusate 8.6-50 mg 1 tablet (SENNA-S) 1 tablet ORAL BID PRN Allergies As of Date: 08/09/2017 Allergen Noted Reaction ALTASEPTIC 12/17/2016 Unknown BRILINTA [TICAGRELOR] 08/09/2017 Unknown CRESTOR [ROSUVASTATIN CALCIUM] 12/17/2016 Myalgia HCTZ [AMILORIDE-HYDROCHLOROTHIAZI*12/17/2016 Swelling OTHER OMEGA-3S 07/06/2017 Unknown RAMIPRIL 12/17/2016 Swelling SIMVASTATIN 12/17/2016 Myalgia VOLTAREN [DICLOFENAC SODIUM] 12/17/2016 Unknown Fully Assessed 08/09/2017 COMPLETE REVIEW OF SYSTEMS: as above Objective PHYSICAL EXAM: Physical Exam Performed: GENERAL: Alert, no distress, cooperative LUNGS: Lungs clear to auscultation, Good diaphragmatic excursion CARDIAC: Normal S1 and S2; no rubs, murmurs, or gallops ABDOMEN: Soft, nontender, RUQ loop colostomy viable, prolapsed, reducible. Stool in stoma bag. EXTREMITIES: Extremities normal, no deformities, edema, clubbing or skin discoloration. Good capillary refill., No ulcers BP 150/54 Pulse 70 Temp (Src) 99 (Oral) Resp 18 Ht 5' 8 (1.73m) Wt 199 lb (90.3kg) SpO2 98% BMI 30.26 kg/(m2). DATA: Diagnostic tests reviewed for today's visit: Most recent labs and imaging results. Impression/Recommendations Active Problems: 67 year old male fall, no traumatic injuries, failure to thrive, chronic parastomal hernia - No surgery intervention is indicated at this time - PT/OT and placement per primary team - Patient can follow up with [facility] at [facility] as scheduled - Will sign off thank you - Discussed with Dr. Urrutia SIGNATURE: Jovani Queen MD PATIENT NAME: Maxx Knott DATE: August 09, 2017 TIME: 9:48 PM PAGER: [phone] HISTORY PHYSICAL Observed: 08/09/2017 Status: COMPLETED Source: [place] 9:12 PM CLINIC OTHER CAMPUS REPOSITORY HNO ID: [id number] Author: Byron Morel Service: Hospital Medicine Author Type: Physician Type: HANDP Filed: 08/09/2017 9:50 PM Note Text: DEPARTMENT OF HOSPITAL MEDICINE HISTORY AND PHYSICAL EXAM SERVICE DATE: 08/09/2017 SERVICE TIME: 8:30 pm Primary Care Physician: Bijan Perez MD NIGHT AND WEEKEND COVERAGE: From 7am - 7pm, please call [phone] After 7pm, please call cross cover pager #[phone] Subjective CHIEF COMPLAINT: Fall earlier today HPI: This is a 67 year old man with a past medical history of coronary artery disease s/p CABG currently only taking aspirin, ischemic cardiomyopathy, tobacco abuse, diverticulitis with perforation in the past, colostomy with parastomal hernia, pacemaker placement. Patient says his cardiology followup is usually at and that he has been following in [place] for his parastomal hernia. Patient says that when he was getting up from bed this morning he fell forward onto his knees and then onto his belly. He denies hitting his head. He denies loss of consciousness and remembers the fall. Patient has cane and walker at home and has had weakness in the past but says his weakness is a bit worse than usual following fall this morning. Imaging done in the emergency department did not show acute osseous injury, but degenerative disc disease of the lumbar spine was noted. Patient also found to have multilevel degenerative disc disease and multilevel canal stenosis at cervical spine. Patient is poor historian and goes on tangents and does not give specific complaints. No fever no chills no acute chest pain no acute shortness of breath no diffuse abdominal pain no cough no nausea no vomiting no dysuria no saddle anaesthesia no dizziness no focal neuro deficit no slurred speech no headache at this time. Patient does not report any recent viral illness nor diarrhoea. Patient has good strenght with flexion at feet. 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 - Peritonitis ([facility]) PAST SURGICAL HISTORY Procedure Laterality Date - APPENDECTOMY HX - COLOSTOMY 07/2016 Diverting Loop Colostomy of the Transverse Colon - HEART SURGERY HX triple bypass 10 yrs ago - PPM IMPLANT - STENT - CORONARY FAMILY HISTORY Problem Relation Age of Onset - Coronary Artery Disease Father - Hyperlipidemia Father Social History Substance Use Topics - Smoking status: Current Every Day Smoker Packs/day: 0.50 Years: 35.00 Types: Pipe, Cigarettes - Smokeless tobacco: Never Used Comment: Quit cigarettes 11-16-16 now smoking 4 pipes as of 04-18-17 - Alcohol use No MEDICATIONS: Reviewed Prescriptions Prior to Admission: amLODIPine (NORVASC) 10 mg tablet Take 10 mg by mouth once daily. Disp: Rfl: loratadine 10 mg cap Take 1 capsule every day by oral route. Disp: Rfl: Past Week at 0900 oxyCODONE-acetaminophen (PERCOCET 10) 10-325 mg tablet TK 1 T PO BID PRN Disp: Rfl: 07/20/2017 at 0900 pravastatin (PRAVACHOL) 40 mg tablet Take 40 mg by mouth daily at bedtime. Disp: Rfl: 07/20/2017 at 2100 cyclobenzaprine (FLEXERIL) 10 mg tablet Take 1 tablet by mouth daily at bedtime. Disp: 90 tablet Rfl: 0 07/20/2017 at 2100 gabapentin (NEURONTIN) 300 mg capsule Take 2 capsules by mouth daily at bedtime for 90 days. Disp: 90 capsule Rfl: 0 05/15/2017 at Unknown time metoprolol succinate ER (TOPROL XL) 100 mg Tb24 Take 1 tablet by mouth once daily. Disp: 90 tablet Rfl: 4 07/21/2017 at 0900 QUEtiapine (SEROQUEL) 200 mg tablet Take 2 tablets by mouth daily at bedtime. Disp: 60 tablet Rfl: 0 07/21/2017 at 2100 MULTIVIT WITH IRON,MINERALS (MULTIVITAMIN AND MINERALS ORAL) Take 1 capsule by mouth. Disp: Rfl: 07/21/2017 at 0900 albuterol HFA (PROVENTIL HFA, VENTOLIN HFA) 90 mcg/actuation inhaler Inhale as instructed. Disp: Rfl: 05/13/2017 fluticasone (FLONASE) 50 mcg/actuation nasal spray Use 1 [place] in the nose once daily as needed. Disp: Rfl: 07/21/2017 at 0900 nitroglycerin sublingual (NITROSTAT) 0.[address](1) TABLET UNDER TONGUE NEEDED FOR CHEST PAIN. IF NO PAIN RELIEF CALL 911 Disp: 25 tablet Rfl: 0 07/21/2017 at Unknown time losartan (COZAAR) 100 mg tablet Take 100 mg by mouth once daily. Disp: Rfl: 07/21/2017 at 0900 aspirin 81 mg chewable tablet Take 81 mg by mouth once daily. Disp: Rfl: 07/21/2017 at 0900 furosemide (LASIX) 20 mg tablet Take 40 mg by mouth once daily as needed. Disp: Rfl: 07/20/2017 at Unknown time tamsulosin ER (FLOMAX) 0.4 mg cp24 Take 1 capsule every day by oral route. Disp: Rfl: 07/20/2017 at Unknown time acetaminophen (TYLENOL) 325 mg tablet Take 3 tablets by mouth every 6 hours. Disp: Rfl: isosorbide mononitrate ER (IMDUR) 60 mg 24 hr tablet Take 1 tablet by mouth once daily. (Patient not taking: Reported on 07/30/2017 ) Disp: 30 tablet Rfl: 0 Not Taking at Unknown time COMPOUNDED PRESCRIPTION One Piece Ostomy Pouch Item Type: Coloplast Sensura One Piece Non-Sterile with Window 07/05-05/01'' ?5/BoxICD 10: Prolapsed Stoma K94.09 Disp: 1 Box Rfl: 0 05/13/2017 COMPOUNDED PRESCRIPTION Paste: Convatec Stomahesive 1 tubeICD 10: Prolapsed Stoma K 94.09 Disp: 1 Tube Rfl: 0 05/13/2017 ALLERGIES Allergen Reactions - Altaseptic Unknown - Brilinta [Ticagrelo* Unknown - Crestor [Rosuvastat* Myalgia - Hctz [Amiloride-Hyd* Swelling - Other [place]-3s Unknown brelinta - Ramipril Swelling - Simvastatin Myalgia - Voltaren [Diclofena* Unknown REVIEW OF SYSTEM: No fever no chills no acute chest pain no acute shortness of breath no diffuse abdominal pain no cough no nausea no vomiting no dysuria no saddle anaesthesia no dizziness no focal neuro deficit no slurred speech no headache at this time. Patient does not have urinary incontinence and does not have saddle anaesthesia. All other systems were reviewed and are negative at this time. Objective PHYSICAL EXAM: BP 150/54 Pulse 70 Temp (Src) 99 (Oral) Resp 18 Ht 5' 8 (1.73m) Wt 199 lb (90.3kg) SpO2 98% BMI 30.26 kg/(m2). Physical Exam Performed: General: awake, alert, oriented x 3, no acute distress, obese HEENT: eomi perrl no marked pallor nor icterus, no nystagmus CV: s1s2 normal, rrr, no mrg, no jvd, has pacemaker Lung: bilateral air entry, no wheezes no rales no rubs no rhonchi Abdomen: soft, nontender, has colostomy with parastomal hernia which is a bit tender though, colostomy bag is filled with brown stool, no blood no melena noted, mild distention, no peritoneal signs Extremities: no marked lower extremity edema, radial pulse 2+ and regular, skin warm and moist Neuro: no gross fnd, cn2-12 grossly intact, eomi, perrl, is weak in lower extremities and is having difficulty standing Lines, Drains, and Airways Line Peripheral 08/09/17 1325 Left Hand 20 Gauge less than 1 day DATA: Diagnostic tests reviewed for today's visit: Most recent labs and imaging results. Assessment/Plan Active Problems: 1. Mechanical fall: POA, active PT/OT evaluation Fall precautions 2. Weakness of lower extremities: POA, active Patient has required cane and walker in the past but says weakness is worse following his fall this morning CT did not show acute osseous injury at the lumbar spine CT C-spine showed degenerative disc disease and canal stenosis 3. Coronary artery disease, ischemic cardiomyopathy: POA, stable C/w home medications aspirin 81 mg PO daily, statin toprol 100 mg PO daily Losartan 100 mg PO daily Amlodipine 10 mg PO daily Nitro prn pain No chest pain at this time 4. YUSUF: POA, stable Patient has home NIPPV with him 5. Pacemaker placement: POA, stable 6. Tobacco abuse: POA, active Patient requests nicotine patch 7. Colostomy with parastomal hernia: POA, active CT shows that it has worsened since prior Request surgery evaluation Ostomy care/wound care consult 8. Incidentally found 12 mm right upper lobe nodule: POA, stable Tobacco abuse history Might need f/u imaging as outpatient as per fleischner criteria 9. Diverticulosis: POA, stable Laxatives as needed 10. Hypertension: POA, stable Home medications as above for now monitor VTE Prophylaxis: Heparin 5000 units Sub Q BID Disposition: Acute Rehab possibly, f/u pt ot evaluation Plan of care discussed with: Patient, surgery SIGNATURE: Byron Morel MD PATIENT NAME: Maxx Knott DATE: August 09, 2017 TIME: 9:12 PM PAGER/CONTACT #: [id number] [phone] [id number] ED NOTE Observed: 08/09/2017 Status: COMPLETED Source: [place] 8:13 PM [facility] REPOSITORY HNO ID: [id number] Author: Rebekah Maguire RN Service: Emergency Medicine Author Type: Registered Nurse Type: ED Notes Filed: 08/09/2017 8:13 PM Note Text: Patient admitted to a Med-surg unit, room number 7104-1. Patient transported via Wheel Chair. Patient accompanied by ST. Patient transported with monitor, oxygen, IV fluids, IV medication infusion, saline lock. Patient belongings sent with patient at time of transfer to inpatient unit. ED NOTE Observed: 08/09/2017 Status: COMPLETED Source: [place] 6:52 PM [facility] REPOSITORY HNO ID: [id number] Author: Russell KingRnBeth Hopper RN Service: Emergency Medicine Author Type: Registered Nurse Type: ED Notes Filed: 08/09/2017 6:55 PM Note Text: Noted rn attempted to ambulate pt with walker per order. Pt able to get out of bed and take 2 steps, then pt stated I'm too weak. Pt sat back in bed without incident, dr murillo made aware of results ED NOTE Observed: 08/09/2017 Status: COMPLETED Source: [place] 6:16 PM CLINIC OTHER CAMPUS REPOSITORY HNO ID: [id number] Author: Russell KingRn) MITCHELL Hopper Service: Emergency Medicine Author Type: Registered Nurse Type: ED Notes Filed: 08/09/2017 6:17 PM Note Text: Noted pt medicated per order and provided with box lunch. Pt sts will attempt to ambulate after pain pills kick in md made aware ED NOTE Observed: 08/09/2017 Status: COMPLETED Source: [place] 5:26 PM CLINIC OTHER [place] REPOSITORY HNO ID: [id number] Author: Russell Toth) MITCHELL Hopper Service: Emergency Medicine Author Type: Registered Nurse Type: ED Notes Filed: 08/09/2017 5:28 PM Note Text: Pt reassessed appears in no obvious distress sitting upright in bed URINALYSIS ROUTINE Collected: 08/09/2017 Status: F Source: [facility] 3:24 PM HEALTH SYSTEM REPOSITORY TYPE CODE TESTS RESULT OUT OF RANGE REFERENCE UNITS LAB COLOR(LOIN C) Urine Color YELLOW LAB APPUR(LOIN C) Urine Appearance CLEAR LAB GLUUR(LOIN Negative mg/dL C) Glucose Urine NEGATIVE LAB KETON(LOIN Negative mg/dL C) Ketone Urine NEGATIVE LAB HGBUR(LOIN Negative C) Hemoglobin,Urin NEGATIVE e LAB PROTU(LOIN Negative mg/dL C) Abnormal Protein Urine 100 LAB NITRI(LOIN Negative C) Nitrites Urine NEGATIVE LAB BILIU(LOIN Negative C) Bilirubin Urine NEGATIVE LAB SPG(LOINC) 1.005-1.030 Specific 1.024 Morris, Ur LAB PHUR(LOINC 5.0-8.0 ) pH,Urine 7.0 LAB UROBI(LOIN 0.0-1.0 EU/dL C) Urobilinogen,Ur 0.2 LAB LEUKO(LOIN Negative C) Leukocytes NEGATIVE Esterase LAB RBCU1(LOIN 0.0-5.0 /hpf C) RBC,Urine 5.0 LAB WBCU1(LOIN 0.0-5.0 /hpf C) WBC, Urine 0.4 LAB EPIT1(LOIN 0.0-5.0 /hpf C) Ep Cells Urine 0.2 LAB BACT1(LOIN None C) Bacteria Urine NONE LAB HYCA1(LOIN 0.0-1.0 /lpf C) Hyaline Cast 0.0 Performed By: #### URIN2 #### [facility] [address] [place] [address] ED NOTE Observed: 08/09/2017 Status: COMPLETED Source: [place] 2:59 PM CLINIC OTHER CAMPUS REPOSITORY HNO ID: [id number] Author: Russell (Rn) MITCHELL Hopper Service: Emergency Medicine Author Type: Registered Nurse Type: ED Notes Filed: 08/09/2017 3:00 PM Note Text: Pt currently gone to radiology, rn to reassess upon return CT HEAD W/O CONTRAST Observed: 08/09/2017 Status: F Source: [facility] 2:56 PM HEALTH SYSTEM REPOSITORY Performed at [facility] APPROVED BY: Dileep Oneal MD EXAMINATION: CT BRAIN WITHOUT CONTRAST; CT CERVICAL SPINE WITHOUT CONTRAST HISTORY: Trauma/fell out of bed TECHNIQUE: Routine CT scan of the brain without contrast. Serial axial unenhanced images were obtained from the vertex to the foramen magnum. Axial CT images of the cervical spine with coronal and sagittal reformatted images COMPARISON: CT brain September 2016 CT Radiation dose: Integrated Dose-length product (DLP) for this visit = 1263 mGy*cm. CT Dose Reduction Employed: No dose reduction techniques were required. RESULT: CT BRAIN: Post-operative change: None. Acute change: No evidence of an acute infarct or other acute parenchymal process. Hemorrhage: No evidence of acute intracranial hemorrhage. Mass effect / Mass lesion: There is no evidence of an intracranial mass or extraaxial fluid collection. No significant mass effect. Chronic change: Scattered patchy foci of low attenuation are present within supratentorial white matter which is a nonspecific finding but likely represents mild microvascular ischemia. Ventricles: The ventricles are within normal limits of size and configuration for age. Paranasal sinuses and skull base: The visualized paranasal sinuses are clear. The skull base and imaged soft tissues are unremarkable. CT CERVICAL SPINE: Alignment: Normal Craniocervical junction: Unremarkable Fracture: None visualized Facets: Multilevel facet arthritis Soft Tissues: Unremarkable Lung Apices: Unremarkable Disk Spaces: There is ossification of the posterior longitudinal ligament along the C5-C7 vertebral levels. There are prominent anterior endplate osteophytes at these levels. Multilevel moderate dege nerative disc space narrowing. C2-C3: Severe left-sided foraminal stenosis secondary to spurring. C3-C4: Mild posterior disc bulging with mild suspected central canal stenosis. C4-C5: There is broad-based posterior disc osteophyte complex eccentric to the right side. At least mild appearing central canal stenosis. Moderate to severe bilateral foraminal stenosis. C5-C6: Prominent posterior disc osteophyte as well as ossification of the posterior longitudinal ligament. Severe appearing central canal stenosis. Moderate left foraminal stenosis. C6-C7: Prominent posterior disc osteophyte complex. Severe central canal stenosis and mild bilateral foraminal stenosis. IMPRESSION: CT BRAIN: 1. No acute intracranial abnormality is seen. Chronic findings as above. CT CERVICAL: 1. No acute osseous injury is seen. 2. Multilevel degenerative disc disease and multilevel canal stenosis as detailed above. The stenosis appears severe at C5-C6 and C6-C7. CT CERVICAL SPINE W/O Observed: 08/09/2017 Status: F Source: [facility] CONTRAST 2:56 PM HEALTH SYSTEM REPOSITORY Performed at [facility] APPROVED BY: Dileep Oneal MD EXAMINATION: CT BRAIN WITHOUT CONTRAST; CT CERVICAL SPINE WITHOUT CONTRAST HISTORY: Trauma/fell out of bed TECHNIQUE: Routine CT scan of the brain without contrast. Serial axial unenhanced images were obtained from the vertex to the foramen magnum. Axial CT images of the cervical spine with coronal and sagittal reformatted images COMPARISON: CT brain September 2016 CT Radiation dose: Integrated Dose-length product (DLP) for this visit = 1263 mGy*cm. CT Dose Reduction Employed: No dose reduction techniques were required. RESULT: CT BRAIN: Post-operative change: None. Acute change: No evidence of an acute infarct or other acute parenchymal process. Hemorrhage: No evidence of acute intracranial hemorrhage. Mass effect / Mass lesion: There is no evidence of an intracranial mass or extraaxial fluid collection. No significant mass effect. Chronic change: Scattered patchy foci of low attenuation are present within supratentorial white matter which is a nonspecific finding but likely represents mild microvascular ischemia. Ventricles: The ventricles are within normal limits of size and configuration for age. Paranasal sinuses and skull base: The visualized paranasal sinuses are clear. The skull base and imaged soft tissues are unremarkable. CT CERVICAL SPINE: Alignment: Normal Craniocervical junction: Unremarkable Fracture: None visualized Facets: Multilevel facet arthritis Soft Tissues: Unremarkable Lung Apices: Unremarkable Disk Spaces: There is ossification of the posterior longitudinal ligament along the C5-C7 vertebral levels. There are prominent anterior endplate osteophytes at these levels. Multilevel moderate dege nerative disc space narrowing. C2-C3: Severe left-sided foraminal stenosis secondary to spurring. C3-C4: Mild posterior disc bulging with mild suspected central canal stenosis. C4-C5: There is broad-based posterior disc osteophyte complex eccentric to the right side. At least mild appearing central canal stenosis. Moderate to severe bilateral foraminal stenosis. C5-C6: Prominent posterior disc osteophyte as well as ossification of the posterior longitudinal ligament. Severe appearing central canal stenosis. Moderate left foraminal stenosis. C6-C7: Prominent posterior disc osteophyte complex. Severe central canal stenosis and mild bilateral foraminal stenosis. IMPRESSION: CT BRAIN: 1. No acute intracranial abnormality is seen. Chronic findings as above. CT CERVICAL: 1. No acute osseous injury is seen. 2. Multilevel degenerative disc disease and multilevel canal stenosis as detailed above. The stenosis appears severe at C5-C6 and C6-C7. CT ABDOMEN AND PELVIS Observed: 08/09/2017 Status: F Source: [facility] WITH CONTRAST 2:56 PM HEALTH SYSTEM REPOSITORY Performed at [facility] APPROVED BY: Dileep Oneal MD EXAM TITLE: CT OF THE THORAX WITH INTRAVENOUS CONTRAST; CT OF THE ABDOMEN AND PELVIS WITH INTRAVENOUS CONTRAST DATE:08/09/2017 14:45 COMPARISON: CT abdomen 07/21/2017 CLINICAL INDICATION/HISTORY: Trauma/fell out of bed TECHNIQUE: Following the administration of 150 cc Omnipaque 300 intravenous contrast axial images are obtained of the thorax. Next axial images were obtained of the abdomen and pelvis in a single portal venous phase. CT Radiation dose: Integrated Dose-length product (DLP) for this visit = 879 mGy*cm. CT Dose Reduction Employed: mAs or kVp was manually adjusted based on either the patient size or age. Automated exposure control (AEC) was used. FINDINGS: CHEST: Heart: Normal in size with no pericardial effusion Mediastinum: No mediastinal or hilar mass or adenopathy is seen. Trachea and esophagus: Unremarkable Lungs: RIGHT LUN mm noncalcified nodule within the right upper lobe (series 3 image 52). 3 mm calcified nodule along the right major fissure. LEFT LUNG: No focal abnormality. The lungs both appear emphysematous. Thoracic aorta: Normal in caliber with no evidence of aneurysm. No axillary or supraclavicular mass or adenopathy is seen. Bony thorax: There are remote healed left-sided rib fractures. No acute intrathoracic bony abnormality. ABDOMEN AND PELVIS: Included osseous structures: Multilevel degenerative disc disease of the lumbar spine. No acute osseous injury is seen. Liver: Normal in size and appearance. No focal lesion or ductal dilatation. Gallbladder and extrahepatic bile duct: Unremarkable. No ductal dilatation is seen. Pancreas and spleen: Unremarkable Adrenal glands: There is thickening of the left adrenal gland. This appears similar dating back to August 2016. Right adrenal is unremarkable. Kidneys: There is no evidence of renal injury. No hydronephrosis or perinephric fluid collection. There are 2 hypodense lesions of the left kidney, one measuring 2.3 cm and the other measuring 1.2 cm which appears similar dating back to August 2016. Ureters and urinary bladder: No dilatation or obstructing calculus is seen. Bowel: Stomach is unremarkable. There is a diverting colostomy within the right upper quadrant. There is a parastomal hernia containing small bowel which appears to be nonobstructive. This appears so mewhat worsened compared to 07/21/2017. Moderate diverticulosis of the sigmoid colon. No evidence of bowel obstruction or injury. Pelvic organs: Prostate is moderately enlarged. There is a fat-containing hernia of the left diaphragm. The stomach no longer extends into this hernia at this time. No peritoneal free air, free fluid or lymphadenopathy is seen. The aorta is normal in caliber. IMPRESSION: CHEST: 1. 12 mm right upper lobe nodule. This is indeterminate for malignancy. Further assessment with PET/CT or biopsy would be recommended. There are no relevant comparison exams for the chest available at this institution. If any prior outside studies exist, comparison would be recommended. 2. Mild emphysema 3. No acute intrathoracic injury is seen ABDOMEN AND PELVIS: 1. No acute intra-abdominal injury 2. Diverticulosis of the sigmoid 3. Right upper quadrant diverting colostomy. There is a parastomal hernia containing small bowel. This has worsened compared to the prior, however appears nonobstructive. CT CHEST WITH Observed: 08/09/2017 Status: F Source: [email or web address] GENERAL CONTRAST 2:56 PM HEALTH SYSTEM REPOSITORY Performed at [facility] APPROVED BY: Dileep Oneal MD EXAM TITLE: CT OF THE THORAX WITH INTRAVENOUS CONTRAST; CT OF THE ABDOMEN AND PELVIS WITH INTRAVENOUS CONTRAST DATE:08/09/2017 14:45 COMPARISON: CT abdomen 07/21/2017 CLINICAL INDICATION/HISTORY: Trauma/fell out of bed TECHNIQUE: Following the administration of 150 cc Omnipaque 300 intravenous contrast axial images are obtained of the thorax. Next axial images were obtained of the abdomen and pelvis in a single portal venous phase. CT Radiation dose: Integrated Dose-length product (DLP) for this visit = 879 mGy*cm. CT Dose Reduction Employed: mAs or kVp was manually adjusted based on either the patient size or age. Automated exposure control (AEC) was used. FINDINGS: CHEST: Heart: Normal in size with no pericardial effusion Mediastinum: No mediastinal or hilar mass or adenopathy is seen. Trachea and esophagus: Unremarkable Lungs: RIGHT LUN mm noncalcified nodule within the right upper lobe (series 3 image 52). 3 mm calcified nodule along the right major fissure. LEFT LUNG: No focal abnormality. The lungs both appear emphysematous. Thoracic aorta: Normal in caliber with no evidence of aneurysm. No axillary or supraclavicular mass or adenopathy is seen. Bony thorax: There are remote healed left-sided rib fractures. No acute intrathoracic bony abnormality. ABDOMEN AND PELVIS: Included osseous structures: Multilevel degenerative disc disease of the lumbar spine. No acute osseous injury is seen. Liver: Normal in size and appearance. No focal lesion or ductal dilatation. Gallbladder and extrahepatic bile duct: Unremarkable. No ductal dilatation is seen. Pancreas and spleen: Unremarkable Adrenal glands: There is thickening of the left adrenal gland. This appears similar dating back to August 2016. Right adrenal is unremarkable. Kidneys: There is no evidence of renal injury. No hydronephrosis or perinephric fluid collection. There are 2 hypodense lesions of the left kidney, one measuring 2.3 cm and the other measuring 1.2 cm which appears similar dating back to August 2016. Ureters and urinary bladder: No dilatation or obstructing calculus is seen. Bowel: Stomach is unremarkable. There is a diverting colostomy within the right upper quadrant. There is a parastomal hernia containing small bowel which appears to be nonobstructive. This appears so mewhat worsened compared to 07/21/2017. Moderate diverticulosis of the sigmoid colon. No evidence of bowel obstruction or injury. Pelvic organs: Prostate is moderately enlarged. There is a fat-containing hernia of the left diaphragm. The stomach no longer extends into this hernia at this time. No peritoneal free air, free fluid or lymphadenopathy is seen. The aorta is normal in caliber. IMPRESSION: CHEST: 1. 12 mm right upper lobe nodule. This is indeterminate for malignancy. Further assessment with PET/CT or biopsy would be recommended. There are no relevant comparison exams for the chest available at this institution. If any prior outside studies exist, comparison would be recommended. 2. Mild emphysema 3. No acute intrathoracic injury is seen ABDOMEN AND PELVIS: 1. No acute intra-abdominal injury 2. Diverticulosis of the sigmoid 3. Right upper quadrant diverting colostomy. There is a parastomal hernia containing small bowel. This has worsened compared to the prior, however appears nonobstructive. ED NOTE Observed: 08/09/2017 Status: COMPLETED Source: [place] 2:35 PM CLINIC OTHER CAMPUS REPOSITORY HNO ID: [id number] Author: Russell (Rn) MITCHELL Hopper Service: Emergency Medicine Author Type: Registered Nurse Type: ED Notes Filed: 08/09/2017 2:36 PM Note Text: Transport made aware pt ready for ordered ct's HEMOGRAM/DIFF Collected: 08/09/2017 Status: F Source: [facility] 1:30 PM HEALTH SYSTEM REPOSITORY TYPE CODE TESTS RESULT OUT OF REFERENCE UNITS RANGE LAB WBC(LOINC) 4.23-9.07 thou/cmm WBC 8.22 LAB RBC(LOINC) 4.63-6.08 mil/cmm Low RBC 4.07 LAB HGB(LOINC) 13.7-17.5 g/dL Low Hgb 12.6 LAB HCT(LOINC) 40.1-51.0 % Low Hct 36.5 LAB MCV(LOINC) 83.2-95.6 fl MCV 89.7 LAB MCH(LOINC) 25.7-32.2 pg MCH 31.0 LAB MCHC(LOINC 32.3-36.5 % ) MCHC 34.5 LAB RDW(LOINC) 11.6-14.4 % RDW 14.0 LAB RDWSD(LOIN 36.1-45.8 fl C) RDW SD High 46.1 LAB PLT(LOINC) 141-365 thou/cmm Platelet 319 LAB MPV(LOINC) 8.7-12.0 fl MPV 10.1 LAB SEG(LOINC) % Seg Neutrophil 74.6 LAB IGRE(LOINC % ) Immature Grans 0.50 LAB LYMPH(LOIN % C) Lymphocyte 18.6 LAB MNO(LOINC) % Monocyte 5.8 LAB EOSIN(LOIN % C) Eosinophil 0.1 LAB BASO(LOINC % ) Basophil 0.4 LAB SEGN(LOINC 1.78-5.38 thou/cmm ) Abs. High Neut 6.13 LAB IGAB(LOINC 0.00-0.05 thou/cmm ) Abs Immature Grans 0.04 LAB LYMN(LOINC 0.84-2.85 thou/cmm ) Abs. Lymph 1.53 LAB MONON(LOIN 0.30-0.82 thou/cmm C) Abs. [place] 0.48 LAB EOSN(LOINC 0.04-0.54 thou/cmm ) Low Abs. Eosin 0.01 LAB BASON(LOIN 0.01-0.08 thou/cmm C) Abs. Baso 0.03 Performed By: #### [id number] #### [place] [address] BASIC PANEL Collected: 08/09/2017 Status: F Source: [facility] 1:30 PM HEALTH SYSTEM REPOSITORY TYPE CODE TESTS RESULT OUT OF REFERENCE UNITS RANGE LAB NA(LOINC) 136-145 mEq/L Low Sodium Blood 135 LAB K(LOINC) 3.5-5.1 mEq/L Potassium Blood see below Result Comment: Hemolyzed-suggest redraw LAB CL(LOINC) 98-107 mEq/L Chloride Blood 105 LAB CO2(LOINC) 21-32 mEq/L CO2 Blood 24 LAB GLU(LOINC) 70-99 mg/dL Glucose High Blood 107 LAB BUN(LOINC) 7-18 mg/dL BUN Blood 11 LAB CREA(LOINC) 0.67-1.17 mg/dL Creatinine Low Blood 0.66 LAB CA(LOINC) 8.5-10.1 mg/dL Calcium Blood 9.2 Performed By: #### P8 #### [facility] [address], [place] [address] MDRD GFR Collected: 08/09/2017 Status: F Source: [facility] 1:30 PM HEALTH SYSTEM REPOSITORY TYPE CODE TESTS RESULT OUT OF RANGE REFERENCE UNITS LAB GFRFN(LOINC >60mL/min/1.73m ) 2 eGFR >60 Result Comment: If the patient is , multiply the result by 1.210. Performed By: #### GFR #### [facility] [address] [place], [place] [address] ED PROV NOTE Observed: 08/09/2017 Status: COMPLETED Source: [place] 1:11 PM CLINIC OTHER CAMPUS REPOSITORY HNO ID: [id number] Author: Niki Murillo MD Service: Emergency Medicine Author Type: Resident Type: ED Provider Notes Filed: 08/09/2017 9:25 PM Note Text: Attestation signed by Courtney Resendiz MD at 08/14/2017 7:23 PM Attending Note I evaluated the patient and personally participated in the nelson components. I agree with the resident's findings and plan as documented and have discussed the case and management of the patient's care with the resident. ED Course Courtney Resendiz's Documentation Value Comment Time examination is awake alert and oriented ?3. There is no focal motor sensory deficits cranial nerves II for gross intact lungs are clear and equal heart regular rate and rhythm without murmurs gallops or rubs has relatively diffuse chest wall discomfort and pain on palpation without obvious step-off or crepitus is no obvious palpable broken ribs or subcutaneous emphysema. He did state that he had some blood from his ostomy which resolved after he changed the bag and in the bag there is brown stool without any evidence of bleeding at this abdomen is otherwise soft nontender without guarding rebound masses or distention. We'll obtain baseline labs and CT scans. 08/09 1326 Others' Documentation Value Comment By Time Potassium: see below (Reviewed) Niki (Mason Murillo MD 08/09 1540 Signature: Courtney Resendiz MD Date: 08/14/2017 Time: 7:23 PM ED Provider Note Patient Name: Maxx Knott SERVICE DATE: 08/09/17 History Patient presents with: Fall: here with c/o back and neck pain, pt s/p fall. sts kind of rolled out of bed around 0300 landing on his knees and catching himself with his hands. pt c/o diffuse pain to mid down to lower back as well as neck pain. pt sts though was able to pick self up off floor ambulate to BR. sts pain got progressively worse though. pt also c/o abd pain that started a little later. c/o pain around ostomy site HPI Comments: 67 old male presents for back and neck pain following a fall. States he was trying to get out of bed this morning when he fell landing mostly on his hands and knees, but believes he may have fallen forward and hit some of his abdomen. States that he was able to get up and ambulate following the incident, however he began to then have low back pain as well as upper back and neck pain. Denies head injury or loss of consciousness. States he is also having some abdominal pain around his ostomy site and noticed a small amount of blood in his ostomy bag earlier today which seems to have resolved. He has had blood in his ostomy previously so this was not completely unexpected. Denies nausea or vomiting. Denies lightheadedness or dizziness. Denies chest pain. Denies lower extremity weakness or numbness. Denies change in bowel or bladder function or urinary retention. Reports normal sensation in his groin area. He does not take anticoagulants. He denies any change in mental function. 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 - Peritonitis ([facility]) PAST SURGICAL HISTORY Procedure Laterality Date - APPENDECTOMY HX - COLOSTOMY 07/2016 Diverting Loop Colostomy of the Transverse Colon - HEART SURGERY HX triple bypass 10 yrs ago - PPM IMPLANT - STENT - CORONARY FAMILY HISTORY Problem Relation Age of Onset - Coronary Artery Disease Father - Hyperlipidemia Father Social History Social History Main Topics - Smoking status: Current Every Day Smoker Packs/day: 0.50 Years: 35.00 Types: Pipe, Cigarettes - Smokeless tobacco: Never Used Comment: Quit cigarettes 11-16-16 now smoking 4 pipes as of 04-18-17 - Alcohol use No - Drug use: No - Sexual activity: Not Currently ALLERGIES Allergen Reactions - Altaseptic Unknown - Brilinta [Ticagrelo* Unknown - Crestor [Rosuvastat* Myalgia - Hctz [Amiloride-Hyd* Swelling - Other [place]-3s Unknown brelinta - Ramipril Swelling - Simvastatin Myalgia - Voltaren [Diclofena* Unknown Review of Systems Constitutional: Negative for chills and fever. HENT: Negative for trouble swallowing and voice change. Eyes: Negative for pain, redness and visual disturbance. Respiratory: Negative for cough, chest tightness and shortness of breath. Cardiovascular: Negative for chest pain and palpitations. Gastrointestinal: Positive for abdominal pain. Negative for vomiting. Endocrine: Negative for cold intolerance and heat intolerance. Genitourinary: Negative for dysuria and frequency. Musculoskeletal: Positive for back pain and neck pain. Negative for joint swelling and myalgias. Skin: Negative for color change and rash. Neurological: Negative for dizziness, light-headedness and headaches. All other systems reviewed and are negative. Physical Exam BP 168/70 Pulse 60 Temp (Src) 98.2 (Oral) Resp 16 Ht 5' 8 (1.73m) Wt 200 lb (90.7kg) SpO2 100% BMI 30.42 kg/(m2). Physical Exam Constitutional: He is oriented to person, place, and time. He appears well-developed and well-nourished. No distress. HENT: Head: Normocephalic and atraumatic. Right Ear: External ear normal. Left Ear: External ear normal. Mouth/Throat: Oropharynx is clear and moist. Eyes: Conjunctivae and EOM are normal. Pupils are equal, round, and reactive to light. Neck: Neck supple. No JVD present. No tracheal deviation present. No midline step-offs or deformities, tenderness palpation in the C6-C7 area in the midline and paraspinal L>R Cardiovascular: Normal rate, regular rhythm, normal heart sounds and intact distal pulses. Exam reveals no gallop and no friction rub. No murmur heard. Pulmonary/Chest: Effort normal and breath sounds normal. No stridor. No respiratory distress. He has no wheezes. He has no rales. He exhibits no tenderness. Abdominal: Soft. Bowel sounds are normal. He exhibits no distension. There is no rebound and no guarding. Midline ostomy site with stomal hernia, chronic per patient, diffusely tender to palpation, brown stool in ostomy bag, also minimally tender to palpation diffusely throughout the abdomen. Musculoskeletal: Normal range of motion. He exhibits no edema. Patient has midline thoracic and lumbar spinal tenderness palpation with no palpable step-offs or deformities, no external evidence of trauma. Neurological: He is alert and oriented to person, place, and time. He has normal reflexes. No cranial nerve deficit. Strength 5/5 in bilateral upper and lower extremities, sensation intact diffusely, perineal sensation intact, no ataxia. Skin: Skin is warm and dry. Nursing note and vitals reviewed. Diagnostic Testing ED Labs Ordered and Reviewed BASIC METABOLIC PANEL (AK,AV,EU,FV,HL,DEMARCO,MM,SP) - Abnormal; Notable for the following: Result Value Ref Range Sodium 135 (*) 136 - 145 mEq/L Glucose 107 (*) 70 - 99 mg/dL Creatinine 0.66 (*) 0.67 - 1.17 mg/dL All other components within normal limits CBC + AUTO DIFF (AK,AV,EU,FV,HL,DEMARCO,MM,SP) - Abnormal; Notable for the following: RBC 4.07 (*) 4.63 - 6.08 mil/cmm HGB 12.6 (*) 13.7 - 17.5 g/dL Hematocrit 36.5 (*) 40.1 - 51.0 % RDW-SD 46.1 (*) 36.1 - 45.8 fl Seg. Neut. # 6.13 (*) 1.78 - 5.38 thou/cmm Eosinophil # 0.01 (*) 0.04 - 0.54 thou/cmm All other components within normal limits URINALYSIS WITH MICROSCOPIC (AK,AV,EU,FV,HL,DEMARCO,MM,SP) - Abnormal; Notable for the following: Protein, Urine 100 (*) Negative mg/dL All other components within normal limits MDRD GFR Procedures Medical Decision Making / ED Course ED Course Niki (Res) Kiran's Documentation Value Comment Time Potassium: see below (Reviewed) 08/09 0600 Others' Documentation Value Comment By Time examination is awake alert and oriented ?3. There is no focal motor sensory deficits cranial nerves II for gross intact lungs are clear and equal heart regular rate and rhythm without murmurs gallops or rubs has relatively diffuse chest wall discomfort and pain on palpation without obvious step-off or crepitus is no obvious palpable broken ribs or subcutaneous emphysema. He did state that he had some blood from his ostomy which resolved after he changed the bag and in the bag there is brown stool without any evidence of bleeding at this abdomen is otherwise soft nontender without guarding rebound masses or distention. We'll obtain baseline labs and CT scans. Courtney Resendiz MD 08/09 2937 67-year-old male presents for back and neck pain following a mechanical fall. He also reports parastomal pain for which he is on chronic 10 mg Percocet. Labs without significant abnormality. CT head, cervical spine, chest, abdomen, and pelvis were performed which show degenerative changes as well as a nonobstructive bowel pattern with slightly enlarged parastomal hernia but no other acute traumatic findings or processes. There are also incidental findings. Patient was advised of his findings. He was treated for pain without significant improvement. Attempted to walk patient with a walker and he is unable to do so due to his pain such that he does not feel comfortable to go home. Had a long discussion with the patient and he is agreeable to admission for placement given his inability to ambulate. Encounter Diagnosis ICD-10-CM 1. Fall, initial encounter W19.XXXA 2. Other acute back pain M54.9 3. Cervicalgia M54.2 4. Parastomal hernia without obstruction or gangrene K43.5 Plan The Patient was ADMITTED: Counseled patient regarding lab results AND radiology results AND suspected diagnosis AND need for follow- up. Patient unable to ambulate and therefore was admitted for placement for rehabilitation. Discussed with , admitting physician. Condition at time of disposition: stable SIGNATURE: MD Niki Orourke (Res) MD Kiran Resident [id number]/09/[id number] Courtney Resendiz MD 08/14/[id number] ED NOTE Observed: 08/09/2017 Status: COMPLETED Source: [place] 12:24 PM [facility] REPOSITORY HNO ID: [id number] Author: Tracey (Medic) Dwight Chong Service: (none) Author Type: Bed Setter and Scraper Meat Type: ED Notes Filed: 08/09/2017 12:24 PM Note Text: Bed: ED-32 Expected date: 08/09/17 Expected time: 11:55 AM Means of arrival: Brian FD Comments: barber[place] back pain ED NOTE Observed: 07/30/2017 Status: COMPLETED Source: [place] 12:22 PM [facility] REPOSITORY HNO ID: [id number] Author: Lenin KingRn) MITCHELL Sullivan Service: Emergency Medicine Author Type: Registered Nurse Type: ED Notes Filed: 07/30/2017 12:23 PM Note Text: Discharge instructions for chest pain discussed with patient. Pt instructed to follow up with Dr. Perez as soon as possible. Pt verbalized understanding of discharge instructions. ED NOTE Observed: 07/30/2017 Status: COMPLETED Source: [place] 11:32 AM [facility] REPOSITORY HNO ID: [id number] Author: Lenin KingRn) MITCHELL Sullivan Service: Emergency Medicine Author Type: Registered Nurse Type: ED Notes Filed: 07/30/2017 11:33 AM Note Text: Assumed care of patient. Diagnosis of chest pain and abd pain for CDU observation. Patient is currently laying in bed. AxOx3. Ambulates independently. Plan of care to monitor vital signs and telemetry and medicate as ordered, awaiting disposition, provide for patient comfort and safety. VSS. Discussed fall risk and plan for mobility. Bed low and locked position with rails up 2x. has an ID Band on , has an Allergy Band on, is in the bed/cart with Side Rails up x2 and has the Call Alvarez within reach. NM CARDIAC PERF Observed: 07/30/2017 Status: F Source: [place] STRESS/EXERCISE 9:58 AM [facility] REPOSITORY * * *Final Report* * * DATE OF EXAM: Jul 30 2017 9:58AM [facility] 0004 - NM CARDIAC PERF STRESS/EXERCISE / PROCEDURE REASON: Chest pain * * * * Physician Interpretation * * * * PATIENT: Name: MAXX KNOTT Age: 67 years Gender: M CONCLUSIONS: 1. SPECT Perfusion Study: Abnormal. 2. There is a moderate (10-20%) fixed perfusion defect in the LCX territory c/w prior infarction. 3. There is no scintigraphic evidence for inducible ischemia. 4. Left ventricle is mildly dilated. The left ventricle systolic function is mildly decreased. There is basal and mid inferior and inferior lateral hypokinesis in the LCx distribution. 5. Right ventricle is normal in size. The right ventricle systolic function is normal. 6. Functional capacity N/A (pharmacological). 7. This is an intermediate risk scan. Gated Stress FBP LVEF % 43 Prior Study Comparison Prior nuclear cardiology exam was performed on [05/18/2017]. Shows no significant change. Nuclear Med Report:1-Day Tc-Tetrofosmin Gated SPECT Myocardial Perfusion with Regadenoson Stress: Myocardial perfusion imaging was performed at rest 30 minutes following the IV injection of Tc-99m tetrofosmin. The patient received 0.4 mg of regadenoson, via rapid IV push, immediately followed by Tc-99m tetrofosmin IV. Gated post stress tomographic imaging was performed 30 to 60 minutes later. See administered doses below. [facility] Date of service: 07/30/2017 8:03:53 AM Ordering Physician: Lisa Camacho Requesting Physician: LISA CAMACHO Indication: Assessment for suspected CAD. Fellow: Bijan Elliott MD Interpreting physician: Sixto Staton MD Patient History: History of coronary heart disease. Previous Cardiovascular Interventions: CABG (2006) PCI (2017) Other pacemaker implant (2017) Height: 170.18 cm BSA: 2.07 m? Weight: 90.72 kg BMI: 31.3 kg/m? Exam Type: Rest Stress Radiopharm: Tc-99m Tetrofosmin Tc-99m Tetrofosmin Dosage(mCi): 12.2 30.6 Atten Correction: not performed performed Stress Agent: Regadenoson 0.4mg Supply provided from [facility] Resting Heart Rate: 65 bpm Resting Blood Press: 150/88 mmHg Image Quality The overall study imaging quality was deemed to be good. FINDINGS: Left Ventricle Wall Motion: Stress IR:3D - The entire inferior wall and posterior wall are hypokinetic. All remaining scored segments are normal. Rest IR:3D - Gated Stress FBP - Reversibility - Stress IR:3D Stress IR:3D Gated Stress FBP LVEF: 43 % ED Volume: 222 ml ES Volume: 127 ml TID: 1.00 Perfusion Findings Stress IR:3D - Summed Score=12 There is a severe perfusion defect in the inferior wall. There is a moderate perfusion defect in the mid inferolateral segment and apical inferior segment. There is a mild perfusion defect in the basal inferolateral segment and apex. All remaining scored segments show normal perfusion. Rest IR:3D - Summed Score=12 There is a severe perfusion defect in the inferior wall. There is a moderate perfusion defect in the mid inferolateral segment and apical inferior segment. There is a mild perfusion defect in the basal inferolateral segment and apex. All remaining scored segments show normal perfusion. Stress IR:3D Rest IR:3D Summed Score=12 Summed Score=12 LEFT VENTRICLE The left ventricle is mildly dilated. Left ventricular systolic function is mildly decreased. Right Ventricle The right ventricle is unseen or not interrogated. The right ventricle is normal in size. Right ventricle systolic function is normal. Stress Test Findings: There is no scintigraphic evidence for inducible ischemia. The stress test was terminated due to the following: End of Protocol. Peak HR 96 bpm. (62 % MPHR) Peak BP 144 mmHg/80 mmHg Patient experienced no symptoms during stress. Stress ECG normal sinus rhythm and atrioventricular block. Stress complications: none. The left ventricular cavity size is unchanged with stress. Final Prep Room Supervisor: DEION Transcribe Date/Time: Jul 30 2017 8:03A Dictated by : SIXTO STATON MD This examination was interpreted and the report reviewed and electronically signed by: SIXTO STATON MD on Jul 30 2017 10:56AM EST [id number] NURSING PROG Observed: 07/30/2017 Status: COMPLETED Source: [place] 8:56 AM [facility] REPOSITORY HNO ID: [id number] Author: Jade Perez RN Service: Nuclear Medicine Author Type: Registered Nurse Type: Nursing Progress Note Filed: 07/30/2017 8:56 AM Note Text: RADIOLOGY SERVICE PROGRESS NOTE SERVICE DATE: 07/30/2017 SERVICE TIME: 8:56 AM PATIENT IDENTITY VERIFICATION COMPLETED USING TWO (2) METHODS: Patient confirmed name and Date of verbally. PATIENT GENDER DATA: male ALLERGIES: Reviewed and unchanged MEDICATIONS REVIEWED BY: Juke Box Servicer PROCEDURE TYPE: NM STRESS: 0.4 mg of Lexiscan was administered IV at 0850 by Jade Perez RN. Reversal agent used: None. IV SITE: Inpatient - refer to LDA documentation POST EXAM PIV STATUS: Inpatient see LDA documentation PATIENT DISCHARGED TO: Patient taken to IP transport area for return to RNF/ICU/ED. A Diagnostic radioactive procedure has taken place, with no further precautions necessary other than routine body substance precautions. More information regarding radiation safety can be found using this link: [email or web address] SIGNATURE: Jade Perez RN PATIENT NAME: Maxx Knott DATE: July 30, 2017 TIME: 8:56 AM PAGER/CONTACT #: [phone] ED PROV NOTE Observed: 07/30/2017 Status: COMPLETED Source: [place] 8:34 AM [facility] REPOSITORY HNO ID: [id number] Author: Edmar Miller Service: Emergency Medicine Author Type: Nurse Practitioner Type: ED Provider Notes Filed: 07/30/2017 4:07 PM Note Text: CDU GENERAL PROGRESS NOTE SERVICE DATE: 07/30/2017 SERVICE TIME: 0834 ASSESSMENT: Encounter Diagnosis ICD-10-CM 1. Chest pain, unspecified type R07.9 2. Coronary artery disease involving [place] coronary artery of [place] heart, angina presence unspecified I25.10 3. Essential hypertension I10 4. Hypokalemia E87.6 PLAN: 1. Discharge home 2. Follow-up with primary care provider and cardiology at the first available appointment 3. Return to the emergency Department with any change or worsening of symptoms SUBJECTIVE: HPI: Mr. Maxx Knott is 67 year old, male placed in the CDU for complaints of dyspnea on exertion, chest pain, blood from ostomy. The patient's past medical history significant for coronary artery bypass graft, cardiac stent, aortic aneurysm, diverticulitis, cardiac pacemaker, peritonitis. He presented the emergency department yesterday with one day of substernal chest pain and dyspnea on exertion. Patient was recently admitted to [facility] for blood from his ostomy. He was told to follow-up for EGD. Patient had no blood in his ostomy bag in the ED. He had 1 negative EKG and one set of negative cardiac enzymes. He was transferred to CDU overnight for cardiac rule out and stress test. This morning he reports no further episodes of chest pain or dyspnea on exertion. He has no blood observed in his ostomy bag. ROS: A complete review of systems was performed and is negative except as noted skin: normal. Denies rash, lesions, color change. eyes: normal. Denies eye pain, blurry vision, visual changes. ears/nose/throat: normal. Denies ear pain, nasal congestion, sore throat. respiratory: dyspnea on exertion as described in history of present illness. Denies numbness, tingling, unilateral weakness. cardiovascular: chest pain as described in history of present illness. Denies palpitations. gastrointestinal: blood from ostomy as described in history of present illness. Denies abdominal pain, nausea, vomiting, diarrhea. genitourinary: normal. Denies flank pain, dysuria. musculoskeletal: normal. Denies joint pain, erythema, edema. neurologic: normal. Denies dizziness, headache, numbness, tingling. endocrine: normal. Denies recent weight change, polyuria, polydipsia. heme/lymph: normal. Denies easy bleeding or bruising. 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 Social History Marital status: Spouse name: Years of education: 12 Number of children: 3 Occupational History Occupation Employer [employer]* Retired Social History Main Topics Smoking status: Current Every Day Smoker Packs/day: 0.50 Years: 35.00 Types: Pipe, Cigarettes Smokeless status: Never Used Comment: Quit cigarettes 11-16-16 now smoking 4 pipes as of 04-18-17 Alcohol use: No Drug use: No Sexual activity: Not Currently ALLERGIES: ALLERGIES Allergen Reactions - Altaseptic Unknown - Crestor [Rosuvastat* Myalgia - Hctz [Amiloride-Hyd* Swelling - Other [place]-3s Unknown brelinta - Ramipril Swelling - Simvastatin Myalgia - Voltaren [Diclofena* Unknown MEDICATIONS: Current Facility-Administered Medications: acetaminophen 975 mg tab(s) (TYLENOL) 975 mg ORAL q 6 H isosorbide mononitrate ER 60 mg tab(s) (IMDUR) 60 mg ORAL DAILY metoprolol succinate ER 100 mg tab(s) (TOPROL XL) 100 mg ORAL DAILY QUEtiapine 400 mg tab(s) (SEROquel) 400 mg ORAL AT BEDTIME 0.9% NaCl 2-10 mL 2-10 mL INTRAVENOUS q 12 H aspirin, enteric coated 162 mg tab(s) (ASPIRIN, ENTERIC COATED) 162 mg ORAL DAILY cyclobenzaprine 10 mg tab(s) (FLEXERIL) 10 mg ORAL AT BEDTIME gabapentin 600 mg cap(s) (NEURONTIN) 600 mg ORAL AT BEDTIME Current Outpatient Prescriptions: amLODIPine (NORVASC) 10 mg tablet Take 10 mg by mouth once daily. loratadine 10 mg cap Take 1 capsule every day by oral route. tamsulosin ER (FLOMAX) 0.4 mg cp24 Take 1 capsule every day by oral route. oxyCODONE-acetaminophen (PERCOCET 10) 10-325 mg tablet TK 1 T PO BID PRN acetaminophen (TYLENOL) 325 mg tablet Take 3 tablets by mouth every 6 hours. pravastatin (PRAVACHOL) 40 mg tablet Take 40 mg by mouth daily at bedtime. isosorbide mononitrate ER (IMDUR) 60 mg 24 hr tablet Take 1 tablet by mouth once daily. (Patient not taking: Reported on 07/30/2017 ) cyclobenzaprine (FLEXERIL) 10 mg tablet Take 1 tablet by mouth daily at bedtime. gabapentin (NEURONTIN) 300 mg capsule Take 2 capsules by mouth daily at bedtime for 90 days. metoprolol succinate ER (TOPROL XL) 100 mg Tb24 Take 1 tablet by mouth once daily. QUEtiapine (SEROQUEL) 200 mg tablet Take 2 tablets by mouth daily at bedtime. COMPOUNDED PRESCRIPTION One Piece Ostomy Pouch Item Type: Coloplast Sensura One Piece Non-Sterile with Window 3-4 1/2'' ?5/BoxICD 10: Prolapsed Stoma K94.09 COMPOUNDED PRESCRIPTION Paste: Convatec Stomahesive 1 tubeICD 10: Prolapsed Stoma K 94.09 MULTIVIT WITH IRON,MINERALS (MULTIVITAMIN AND MINERALS ORAL) Take 1 capsule by mouth. albuterol HFA (PROVENTIL HFA, VENTOLIN HFA) 90 mcg/actuation inhaler Inhale as instructed. fluticasone (FLONASE) 50 mcg/actuation nasal spray Use 1 [place] in the nose once daily as needed. nitroglycerin sublingual (NITROSTAT) 0.[address] ONE(1) TABLET UNDER TONGUE NEEDED FOR CHEST PAIN. IF NO PAIN RELIEF CALL 911 losartan (COZAAR) 100 mg tablet Take 100 mg by mouth once daily. aspirin 81 mg chewable tablet Take 81 mg by mouth once daily. furosemide (LASIX) 20 mg tablet Take 40 mg by mouth once daily as needed. OBJECTIVE: Vital signs reviewed. General Survey: Alert and oriented x 3. Sitting in bed in no acute distress. Skin: Warm and dry. Cap refill less than 2 seconds. Nail beds pink. Head: Normocephalic, atraumatic. Eyes: Conjunctiva pink and without exudates. Sclera white. Mouth: Gums pink. Buccal mucosa pink and moist. Soft palate raises symmetrically. Neck:Trachea midline. No carotid bruits bilaterally. No JVD. Respiratory: Lung sounds clear and equal to auscultation bilaterally. No wheezes, rhonci or rales. Chest expansion symmetrical. No accessory muscle usage. Cardiovascular:Normal S1 and S2. No S3, S4. No MRG. No lifts or heaves. Peripheral Vascular: Extremities warm and without edema. Gastrointestinal: Soft and non-tender to palpation. No masses. Bowel sounds present in all four quads. ostomy draining brown stool. No blood noted. Genitourinary: No CVA tenderness. Musculoskeletal: No swelling or deformity noted. Joints without erythema, edema or warmth. No neck pain with flexion. Neurological: Alert, relaxed and cooperative. Thought processes are coherent. MDM: the patient was placed in the CDU overnight for cardiac rule out and stress test. 2 high sensitivity troponins were stable. Troponin negative. EKGs remain unchanged. Review of the cardiac monitoring record overnight shows no arrhythmia. Stress test was negative for ischemia. Patient's HANDH is stable. He has had no further bleeding observed in his ostomy bag. His vital signs been stable. His chest x-ray was negative. Patient was requesting narcotics upon discharge. Patient was instructed he will need to follow-up with the doctor that prescribed his pain medication. These prescriptions cannot be refilled in the ED. He was discharged home in stable condition. Vital signs were reviewed. BP 164/64 Pulse 76 Temp 36.6 ?C (97.9 ?F) (Oral) Resp 18 Wt 90.8 kg (200 lb 2.8 oz) SpO2 97% BMI 30.44 kg/m2 Triage records were reviewed. Medical records were reviewed. Nursing notes were reviewed and incorporated. ECG : EKG INTERPRETATION: RHYTHM: Normal sinus rhythm at 63 beats per minute AXIS: Normal axis INTERVALS: 1st degree AV block QRS COMPLEX: Normal ST SEGMENT: Normal ST-T segments QT INTERVAL: Normal COMPARED WITH PRIOR: unchangedfrom prior EKG on 21 July 2017 independent read of EKG was performed by Edmar Miller APRN.[facility] Labs reviewed and interpreted. To high sensitivity troponins were stable. HANDH was stable. Potassium within normal limits. Troponin negative. Lipase within normal limits. CMP yesterday showed low potassium at 3.4. Radiographs were reviewed. Chest x-ray shows no acute process. Stress test was negative for ischemia. DATA: Diagnostic tests reviewed for today's visit: Most recent labs and imaging results. Most recent EKG SIGNATURE: Edmar Miller APRN.PRINTING PRESS OPERATOR APPRENTICE PATIENT NAME: Maxx Knott DATE: July 30, 2017 Edmar (Ivy) Paul 07/30/17 1607 PROGRESS Observed: 07/30/2017 Status: COMPLETED Source: [place] 7:37 AM [facility] REPOSITORY [facility] ID: [id number] Author: Jay Sheehan [facility] Service: (none) Author Type: (none) Type: Progress Notes Filed: 07/30/2017 9:02 AM Note Text: RADIOLOGY SERVICE PROGRESS NOTE SERVICE DATE: 07/30/2017 SERVICE TIME: 7:37 AM PATIENT IDENTITY VERIFICATION COMPLETED USING TWO (2) METHODS: Patient confirmed name and Date of verbally. PATIENT GENDER DATA: .male : No ALLERGIES: Reviewed and unchanged MEDICATIONS REVIEWED: No PATIENT RELEVANT IMPLANT DATA REVIEWED: Not Applicable CREATININE: Creatinine Date Value Ref Range Status 07/30/2017 0.88 0.73 - 1.22 mg/dL Final 07/25/2017 0.89 0.67 - 1.17 mg/dL Final 07/24/2017 0.90 0.67 - 1.17 mg/dL Final eGFR-All Other Races Date Value Ref Range Status 07/30/2017 >60 . Final Comment: eGFR (Estimated GFR) Units of measure: mL/min/1.73 meters squared eGFR is derived from the reexpressed MDRD Study equation using the following parameters: serum creatinine, age, gender and race. The creatinine assay has been calibrated to be traceable to [employer]. An eGFR <60 mL/min/1.73m2 for >3 months is consistent with chronic kidney disease. Refer to KDOQI guidelines for clinical interpretation. In patients with unstable renal function, e.g. those with acute kidney injury, the eGFR may not accurately reflect actual GFR. eGFR- Date Value Ref Range Status 07/30/2017 >60 Final P.O.C.T. RESULTS: N/A July 30, [address] PERFORMED: No IV SITE: Inpatient - refer to LDA documentation POST EXAM PIV STATUS: Inpatient see [facility] documentation PROCEDURE TYPE: NM Stress: 12.2mCi [id number]-Vnukaml was administered IV for Rest Imaging at 07:35. 30.6 mCi [id number] was administered IV for Stress Imaging at 0850 by Jay Sheehan [facility]. PATIENT DISCHARGED TO: Patient taken to IP transport area for return to RNF/ICU/ED. A Diagnostic radioactive procedure has taken place, with no further precautions necessary other than routine body substance precautions. More information regarding radiation safety can be found using this link: [email or web address] SIGNATURE: Hue Traore [facility] PATIENT NAME: Maxx Knott DATE: July 30, 2017 TIME: 7:37 AM PAGER/CONTACT #: ED NOTE Observed: 07/30/2017 Status: COMPLETED Source: [place] 7:13 AM [facility] REPOSITORY HNO ID: [id number] Author: Lenin (Rn) MITCHELL Sullivan Service: Emergency Medicine Author Type: Registered Nurse Type: ED Notes Filed: 07/30/2017 7:14 AM Note Text: Patient transported to [facility] with Tech. ED NOTE Observed: 07/30/2017 Status: COMPLETED Source: [place] 7:07 AM [facility] REPOSITORY HNO ID: [id number] Author: Raquel KingRn) MITCHELL Marques Service: Emergency Medicine Author Type: Registered Nurse Type: ED Notes Filed: 07/30/2017 7:07 AM Note Text: Handoff report given to MITCHELL Fuentes. ED NOTE Observed: 07/30/2017 Status: COMPLETED Source: [place] 5:19 AM [facility] REPOSITORY HNO ID: [id number] Author: Maribell Cervantes (Cook Helper Vegetable) REILLY Wiggins Service: Emergency Medicine Author Type: Registered Resp Therapist Type: ED Notes Filed: 07/30/2017 5:21 AM Note Text: Patient in observation for chest pain. Current respiratory hx of COPD and YUSUF with CPAP +15 cmH2O at hs, home medications include albuterol inhaler and nebulizer when needed per pt. SpO2 97% on nasal CPAP (home unit at bedside). RR 16. HR 63. BS clear bilaterally. Pt stable, resting comfortably in NAD. Will continue to monitor. TROPONIN T Collected: 07/30/2017 Status: F Source: [place] 5:06 AM [facility] REPOSITORY TYPE CODE TESTS RESULT OUT OF REFERENCE UNITS RANGE LAB TROPT 0.000-0.029 ng/mL Troponin T <0.010 Performed By: #### BRAYAN, K1 #### [facility] [employer] [address] [place], [place] [address] POTASSIUM Collected: 07/30/2017 Status: F Source: [place] 5:06 AM [facility] REPOSITORY TYPE CODE TESTS RESULT OUT OF REFERENCE UNITS RANGE LAB K 3.7-5.1 mmol/L Potassium 4.1 Performed By: #### BRAYAN, K1 #### [facility] [employer] [address] [place] [address] ED NOTE Observed: 07/30/2017 Status: COMPLETED Source: [place] 4:30 AM [facility] REPOSITORY HNO ID: [id number] Author: Raquel (Rn) MITCHELL Marques Service: Emergency Medicine Author Type: Registered Nurse Type: ED Notes Filed: 07/30/2017 5:35 AM Note Text: Pt is 67 year old male transferred in and oriented to [facility]- 13 in with diagnosis of chest pain. Pt ambulated from wheelchair to bathroom and back to bed independently, gait steady. Call light within reach. Plan of care reviewed with pt, pt verbalized understanding. No distress. Pt c/o pain around stoma only. See pain assessment. Comfort measures provided. RLQ abdomen ostomy with largely edematous stoma, red. Ostomy bag with soft brown stool. Pt stated that he just emptied his ostomy and there's blood in it. No active bleeding noted. No c/o chest pain or shortness of breath. Resps even and unlabored. Pt able to speak in full sentences. Pt requests his Flexeril. Pt aware of stress test at 0700 this morning. Pt states that Flexeril won't make him too tired for the stress test. Tele- SR with demand A paced. Nursing Plan of Care: Continue observation in CDU Obtain and monitor vital signs per protocol Treat pain and reassess per protocol Continue to monitor for patient safety and comfort Monitor cardiac telemetry Continue with ordered plans of serial EKG's and cardiac enzymes Stress test as ordered ED NOTE Observed: 07/30/2017 Status: COMPLETED Source: [place] 4:30 AM [facility] REPOSITORY HNO ID: [id number] Author: Raquel KingRn) MITCHELL Marques Service: Emergency Medicine Author Type: Registered Nurse Type: ED Notes Filed: 07/30/2017 5:36 AM Note Text: Patient has an ID Band on , has an Allergy Band on, is in the bed/cart with Side Rails up x2 and has the Call Alvarez within reach. ED NOTE Observed: 07/30/2017 Status: COMPLETED Source: [place] 4:17 AM [facility] REPOSITORY HNO ID: [id number] Author: Pravin KingRn) MITCHELL Melo Service: Emergency Medicine Author Type: Registered Nurse Type: ED Notes Filed: 07/30/2017 4:34 AM Note Text: Report called to Raquel GONZALEZ. Bed 13 ready. PROGRESS Observed: 07/30/2017 Status: COMPLETED Source: [place] 3:50 AM [facility] REPOSITORY HNO ID: [id number] Author: Melissa Ayala (Pharmacist) Service: Pharmacy Author Type: Pharmacist Type: Progress Notes Filed: 07/30/2017 3:51 AM Note Text: MEDICATION HISTORY AND MEDICATION RECONCILIATION Patient Name:Eric Knott : 1950 Source of history:Patient: Reliability of source: Appears reliable, clearly identified: Medication name and Medication frequency Medication Nonadherence Identified: No barriers noted The above information represents the best possible medication history: Yes Reconciliation completed? Yes All BIOFUELS MANAGER medications addressed by LIP Additional comments: N/A Allergies: ALLERGIES Allergen Reactions - Altaseptic Unknown - Crestor [Rosuvastat* Myalgia - Hctz [Amiloride-Hyd* Swelling - Other [place]-3s Unknown brelinta - Ramipril Swelling - Simvastatin Myalgia - Voltaren [Diclofena* Unknown Current BIOFUELS MANAGER Medications: Prior to Admission medications as of 07/30/17 0350 Medication Sig Last Dose Taking amLODIPine (NORVASC) 10 mg tablet Take 10 mg by mouth once daily. Yes loratadine 10 mg cap Take 1 capsule every day by oral route. tamsulosin ER (FLOMAX) 0.4 mg cp24 Take 1 capsule every day by oral route. oxyCODONE-acetaminophen (PERCOCET 10) 10-325 mg tablet TK 1 T PO BID PRN acetaminophen (TYLENOL) 325 mg tablet Take 3 tablets by mouth every 6 hours. pravastatin (PRAVACHOL) 40 mg tablet Take 40 mg by mouth daily at bedtime. isosorbide mononitrate ER (IMDUR) 60 mg 24 hr tablet Take 1 tablet by mouth once daily. Patient not taking: Reported on 07/30/2017 Not Taking at Unknown time cyclobenzaprine (FLEXERIL) 10 mg tablet Take 1 tablet by mouth daily at bedtime. gabapentin (NEURONTIN) 300 mg capsule Take 2 capsules by mouth daily at bedtime for 90 days. metoprolol succinate ER (TOPROL XL) 100 mg Tb24 Take 1 tablet by mouth once daily. QUEtiapine (SEROQUEL) 200 mg tablet Take 2 tablets by mouth daily at bedtime. COMPOUNDED PRESCRIPTION One Piece Ostomy Pouch Item Type: Coloplast Sensura One Piece Non-Sterile with Window 07/05-4 05/01'' ?5/Box ICD 10: Prolapsed Stoma K94.09 COMPOUNDED PRESCRIPTION Paste: Convatec Stomahesive 1 tube ICD 10: Prolapsed Stoma K 94.09 MULTIVIT WITH IRON,MINERALS (MULTIVITAMIN AND MINERALS ORAL) Take 1 capsule by mouth. albuterol HFA (PROVENTIL HFA, VENTOLIN HFA) 90 mcg/actuation inhaler Inhale as instructed. fluticasone (FLONASE) 50 mcg/actuation nasal spray Use 1 [place] in the nose once daily as needed. nitroglycerin sublingual (NITROSTAT) 0.[address] ONE(1) TABLET UNDER TONGUE NEEDED FOR CHEST PAIN. IF NO PAIN RELIEF CALL 911 losartan (COZAAR) 100 mg tablet Take 100 mg by mouth once daily. aspirin 81 mg chewable tablet Take 81 mg by mouth once daily. furosemide (LASIX) 20 mg tablet Take 40 mg by mouth once daily as needed. Melissa Ayala, Pharmacist July 30, 2017 3:50 AM HIGH SENS TROPONIN T Collected: 07/30/2017 Status: F Source: [place] 2:50 AM [facility] REPOSITORY TYPE CODE TESTS RESULT OUT OF REFERENCE UNITS RANGE LAB HSTN <12 ng/L High High Sensitivity BRAYAN 14 Result Comment: When assessing risk for acute coronary syndromes: In patients undergoing blood draw greater than or equal to 2 hours from symptom onset, with history of very low to moderate risk and non-ischemic ECG, an initial hs-Troponin T less than 12 ng/L AND a 1 hour delta hs-Troponin T less than 3 ng/L should be considered very low risk for 30 day MACE. Performed By: #### HSTNT #### [facility] [address] [place], [place] [address] ED NOTE Observed: 07/30/2017 Status: COMPLETED Source: [place] 1:10 AM [facility] REPOSITORY HNO ID: [id number] Author: Pravin KingRn) MITCHELL Melo Service: Emergency Medicine Author Type: Registered Nurse Type: ED Notes Filed: 07/30/2017 1:13 AM Note Text: Assumed care of pt. Pt presenting to ED with c/o SOB, CP, and abd pain. Pt states I was laying down, then I got up to go to the bathroom. I then got CP, SOB, and abd pain about 3 hours ago. I was dizzy for a second, but I am fine now. pt reports 8/10 aching abd pain. Pt has stoma. Intact and beefy. Pt reports blood in stool. Pt reports CP and SOB at rest. Pt on monitor, NSR 76. Pulse ox 97% on RA. NAD noted. ABCs intact. Safety checks performed. Will continue to monitor. PROGRESS Observed: 07/30/2017 Status: COMPLETED Source: [place] 12:57 AM [facility] REPOSITORY HNO ID: [id number] Author: Luis Manuel Barillas (Rt) Service: Radiology Author Type: Scraper Meat Type: Progress Notes Filed: 07/30/2017 12:57 AM Note Text: Radiology Service Progress Note PATIENT NAME: Maxx Knott DATE OF SERVICE: July 30, 2017 TIME: 12:57 AM PATIENT IDENTITY VERIFICATION COMPLETED USING TWO (2) METHODS: Patient confirmed name verbally and ID band matches.. PATIENT GENDER DATA: Male PATIENT RELEVANT IMPLANT DATA REVIEWED: Not Applicable RADIOLOGY DEPARTMENT: General X-ray: Exam(s) Completed: Chest X-Ray PERIPHERAL IV DATA: Not applicable SIGNED BY: RT Isaiah July 30, 2017 12:57 AM XR CHEST 2V FRONTAL/LAT Observed: 07/30/2017 Status: F Source: [place] 12:56 AM [facility] REPOSITORY * * *Final Report* * * DATE OF EXAM: Jul 30 2017 12:56AM EGX [id number] - XR CHEST 2V FRONTAL/LAT / PROCEDURE REASON: Shortness of breath * * * * Physician Interpretation * * * * EXAMINATION: CHEST RADIOGRAPH (2 VIEW FRONTAL and LATERAL) Clinical History: Shortness of breath MQ: XC2_4 Comparison: 06/05/2017 RESULT: Lines, tubes, and devices: Left pacemaker device with leads in the right atrium and right ventricle. Status post median sternotomy. Lungs and pleura: No consolidation. No lung mass. No pleural effusion. No pneumothorax. Cardiomediastinal silhouette: Stable cardiomediastinal silhouette. Status post prior CABG. Other: No acute osseous findings. IMPRESSION: No acute radiographic abnormality or significant interval change. Prep Room Supervisor: PSCB Transcribe Date/Time: Jul 30 2017 1:06A Dictated by : JAYLA MOREL MD This examination was interpreted and the report reviewed and electronically signed by: HUE SHAH MD on Jul 30 2017 1:46AM EST [id number] ED PROV NOTE Observed: 07/30/2017 Status: COMPLETED Source: [place] 12:43 AM [facility] REPOSITORY HNO ID: [id number] Author: Lisa Camacho MD Service: Emergency Medicine Author Type: Physician Type: ED Provider Notes Filed: 07/30/2017 11:59 PM Note Text: ED Provider Note Patient Name: Maxx Knott SERVICE DATE: 07/29/17 History Patient presents with: Shortness of Breath: worsening exertional SOB, midsternal CP x 2-3 days Chest Pain Blood In Stool: blood in stool from colostomy x 1 week - pt left AMA from [place] on 07/21 after admission for similar complaints. PMH of perforated diverticulitis HPI Comments: 67 yo M states he had onset MS chest pain and dyspnea on exertion onset one hour ago and he had his brother drive him from home in [place] to [facility], deferring 911 because you have better records on me. Patient was admitted [facility] until he left AMA 3 days ago. He states he had a court date he couldn't miss. He denies having need for blood transfusion this admission, had CBG > 10 years ago, last stent September [address] [facility]. Patient is a 67 year old male presenting with chest pain. History provided by: Patient and medical records interpreter deaf used: No Chest Pain Pain location: Substernal area Pain quality: aching Pain radiates to: Does not radiate Onset quality: Gradual Duration: 1 hour Timing: Constant Chronicity: Recurrent Relieved by: Nitroglycerin and rest Worsened by: Exertion Associated symptoms: shortness of breath Associated symptoms: no abdominal pain, no back pain, no cough, no diaphoresis, no fever, no headache, no nausea, no palpitations, no vomiting and no weakness PAST MEDICAL HISTORY Diagnosis Date - AAA (abdominal aortic aneurysm) without rupture ([facility]) 05/13/[address] a/p - CAD (coronary artery disease) 2005 CAD s/p CABG x3 ([id number], [id number], [id number]-[id number]) (2006 at [place]) - Current every day smoker PT SMOKES A PIPE - Diverticulitis Perforated Diverticulitis - Diverticulitis of sigmoid colon 05/15/2017 Added automatically from request for surgery [id number] - Pacemaker 02/16/2017 s/p PPM () 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 - Peritonitis ([facility]) PAST SURGICAL HISTORY Procedure Laterality Date - APPENDECTOMY HX - COLOSTOMY 07/2016 Diverting Loop Colostomy of the Transverse Colon - HEART SURGERY HX triple bypass 10 yrs ago - PPM IMPLANT - STENT - CORONARY FAMILY HISTORY Problem Relation Age of Onset - Coronary Artery Disease Father - Hyperlipidemia Father Social History Social History Main Topics - Smoking status: Current Every Day Smoker Packs/day: 0.50 Years: 35.00 Types: Pipe, Cigarettes - Smokeless tobacco: Never Used Comment: Quit cigarettes 11-16-16 now smoking 4 pipes as of 04-18-17 - Alcohol use No - Drug use: No - Sexual activity: Not Currently ALLERGIES Allergen Reactions - Altaseptic Unknown - Crestor [Rosuvastat* Myalgia - Hctz [Amiloride-Hyd* Swelling - Other [place]-3s Unknown brelinta - Ramipril Swelling - Simvastatin Myalgia - Voltaren [Diclofena* Unknown Review of Systems Constitutional: Negative. Negative for chills, diaphoresis, fever and unexpected weight change. HENT: Negative. Negative for congestion and sore throat. Eyes: Negative. Negative for redness and visual disturbance. Respiratory: Positive for shortness of breath. Negative for cough. TAPIA, not at rest Cardiovascular: Positive for chest pain. Negative for palpitations and leg swelling. Gastrointestinal: Positive for blood in stool. Negative for abdominal pain, constipation, diarrhea, nausea and vomiting. Blood in ostomy Genitourinary: Negative. Negative for difficulty urinating and flank pain. Musculoskeletal: Negative. Negative for back pain. Skin: Negative. Negative for rash. Neurological: Negative. Negative for weakness and headaches. Psychiatric/Behavioral: Negative. Physical Exam BP 164/77 Pulse 65 Temp (Src) 97.8 (Oral) Resp 14 SpO2 97% Physical Exam Constitutional: He is oriented to person, place, and time. He appears well-developed and well-nourished. No distress. HENT: Head: Normocephalic and atraumatic. Mouth/Throat: Oropharynx is clear and moist. No oropharyngeal exudate. Eyes: EOM are normal. No scleral icterus. Neck: Neck supple. Cardiovascular: Normal rate, regular rhythm and intact distal pulses. No murmur heard. Pulmonary/Chest: Effort normal and breath sounds normal. No stridor. No respiratory distress. Abdominal: Soft. Bowel sounds are normal. There is no tenderness. There is no rebound. brown succus , lrg amt in ostomy bag Musculoskeletal: Normal range of motion. He exhibits no edema or tenderness. Neurological: He is alert and oriented to person, place, and time. No cranial nerve deficit. Skin: Skin is warm and dry. No rash noted. He is not diaphoretic. Psychiatric: He has a normal mood and affect. Nursing note and vitals reviewed. Chest Pain Pathway History of Present Symptoms: Moderate Risk ECG Findings: Non Ischemic ECG Number of Risk Factors: 6 Initial High Sensitivity Troponin: 12 - 52 ng/l Delta Troponin: <3 ng/l Total Heart Score: 5 Based on the above information, patient is at moderate risk for a Major Adverse Cardiac Event at 30 days Diagnostic Testing ED Labs Ordered and Reviewed COMP METABOLIC PANEL - Abnormal; Notable for the following: Result Value Ref Range Bilirubin, Total <0.2 (*) 0.2 - 1.3 mg/dL Glucose 124 (*) 74 - 99 mg/dL Potassium 3.4 (*) 3.7 - 5.1 mmol/L All other components within normal limits CBC + DIFF - Abnormal; Notable for the following: RBC 3.57 (*) 4.20 - 6.00 m/uL Hemoglobin 11.2 (*) 13.0 - 17.0 g/dL Hematocrit 32.8 (*) 39.0 - 51.0 % All other components within normal limits HIGH SENSITIVITY TROPONIN T - Abnormal; Notable for the following: BRAYAN High Sensitivity 16 (*) <12 ng/L All other components within normal limits HIGH SENSITIVITY TROPONIN T - Abnormal; Notable for the following: BRAYAN High Sensitivity 14 (*) <12 ng/L All other components within normal limits LIPASE BLD Procedures Medical Decision Making / ED Course ED Course pt had ASA 81 mg x 2 prior to arrival (yesterday) EKG NSR HR91, no acute ischemic changes EPIC EMR reviewed, patient was admitted [facility] 07/21 to 07/25 when he signed out AMA CXR; Lines, tubes, and devices: ?Left pacemaker device with leads in the right atrium and right ventricle. ?Status post median sternotomy. Lungs and pleura: ?No consolidation. No lung mass. No pleural effusion. Cardiomediastinal silhouette: ?Stable cardiomediastinal silhouette. ? Status post prior CABG. Other: ?No acute osseous findings. 1st HS troponin elevated at 16 GI progress note reviewed; ...Pt's stool is now a dark brown. I recommended an EGD in AM but pt states he has to go home today b/c of court date in AM. Since stool is now brown it would be reasonable to d/c pt home on PPI and have him get EGD done at time of colonoscopy (which is supposed to be scheduled at [facility] before he has reversal of his colostomy and sigmoid resection). I told pt that if he gets any more black stool as outpatient then he needs to come back to ED. I discussed all of the above with [facility] Attending (Dr. Palmer) as well. Bijan Benavides MD July 25, 2017 1:05 PM PO potassium given Heart score 5 neg delta HS troponin no changes in stable mild anemia, no leukocytosis patient c/o stoma pain - given PO Percocet (in med list) place in CDU for r/o ACS with stress test Encounter Diagnosis ICD-10-CM 1. Chest pain, unspecified type R07.9 2. Coronary artery disease involving [place] coronary artery of [place] heart, angina presence unspecified I25.10 3. Essential hypertension I10 4. Hypokalemia E87.6 Plan The Patient was ADMITTED TO: CDU. Condition at time of disposition: stable SIGNATURE: MD Lisa Johnson MD 07/30/17 8719 CBC AND DIFFERENTIAL Collected: 07/30/2017 Status: F Source: [place] 12:43 AM [facility] REPOSITORY TYPE CODE TESTS RESULT OUT OF REFERENCE UNITS RANGE LAB WBC 3.70-11.00 k/uL WBC 10.58 LAB RBC 4.20-6.00 m/uL Low RBC 3.57 LAB HGB 13.0-17.0 g/dL Low Hemoglobin 11.2 LAB HCT 39.0-51.0 % Low Hematocrit 32.8 LAB MCV 80.0-100.0 fL MCV 91.9 LAB MCH 26.0-34.0 pG MCH 31.4 LAB MCHC 30.5-36.0 g/dL MCHC 34.1 LAB RDWCV 11.5-15.0 % RDW-CV 14.4 LAB PLTCT 150-400 k/uL Platelet Count 361 LAB MPV 9.0-12.7 fL MPV 10.2 LAB ANEUT % Neut% 63.4 LAB AANEUT 1.45-7.50 k/uL Abs Neut 6.69 LAB ALYMP % Lymph% 27.7 LAB AALYMP 1.00-4.00 k/uL Abs Lymph 2.93 LAB AMONO % [place]% 7.1 LAB AAMONO <0.87 k/uL Abs [place] 0.75 LAB AEOS % Eosin% 1.4 LAB AAEOS <0.46 k/uL Abs Eosin 0.15 LAB ABASO % Baso% 0.4 LAB AABASO <0.11 k/uL Abs Baso 0.04 LAB AUNRBC 0 /100 WBC NRBCs 0.0 LAB ABNRBC <0.01 k/uL Absolute nRBC <0.01 LAB DTYP DTYPE Auto Diff Performed By: #### CBCDIF, CMP, HSTNT, LIPA #### [facility] [address] [place], [place] [address] COMP METABOLIC PANEL Collected: 07/30/2017 Status: F Source: [place] 12:43 AM [facility] REPOSITORY TYPE CODE TESTS RESULT OUT OF REFERENCE UNITS RANGE LAB TP 6.3-8.0 g/dL Protein, Total 6.7 LAB ALB 3.9-4.9 g/dL Albumin 3.9 LAB CA 8.5-10.2 mg/dL Calcium, Total 9.3 LAB TBIL 0.2-1.3 mg/dL Low Bilirubin, Total <0.2 LAB ALKP 36-108 U/L Alkaline Phosphatase 77 LAB AST 14-40 U/L AST 25 LAB GLU 74-99 mg/dL Glucose High 124 Result Comment: The [place] Diabetes Association (ADA) provides guidance for cutoff values for fasting glucose and random glucose. The ADA defines fasting as no caloric intake for at least 8 hours. Fas ting plasma glucose results between 100 to 125 mg/dL indicate increased risk for diabetes (prediabetes). Fasting plasma glucose results greater than or equal to 126 mg/dL meet the criteria for diagnosis of diabetes. In the absence of unequivocal hyperglycemia, results should be confirmed by repeat testing. In a patient with classic symptoms of hyperglycemia or hyperglycemic crisis, random plasma glucose results greater than or equal to 200 mg/dL meet the criteria for diagnosis of diabetes. Reference: Standards of Medical Care in Diabetes 2016, [place] Diabetes Association. Diabetes Care. 2016.39(Suppl 1). LAB BUN 9-24 mg/dL BUN 11 LAB CRET 0.73-1.22 mg/dL Creatinine 0.88 LAB NA 136-144 mmol/L Sodium 139 LAB K 3.7-5.1 mmol/L Potassium Low 3.4 LAB CL 97-105 mmol/L Chloride 101 LAB CO2 22-30 mmol/L CO2 25 LAB AGAP 9-18 mmol/L Anion Gap 13 LAB ALT 10-54 U/L ALT 33 LAB GFRAA eGFR- Amer. >60 LAB GFRNAA . eGFR-All Other Races >60 Result Comment: eGFR (Estimated GFR) Units of measure: mL/min/1.73 meters squared eGFR is derived from the reexpressed MDRD Study equation using the following parameters: serum creatinine, age, gender and race. The creatinine assay has been calibrated to be traceable to IDMS. An eGFR <60 mL/min/1.73m2 for >3 months is consistent with chronic kidney disease. Refer to KDOQI guidelines for clinical interpretation. In patients with unstable renal function, e.g. those with acute kidney injury, the eGFR may not accurately reflect actual GFR. Performed By: #### CBCDIF, CMP, HSTNT, LIPA #### [facility] [address] [place] [address] HIGH SENS TROPONIN T Collected: 07/30/2017 Status: F Source: [place] 12:43 AM [facility] REPOSITORY TYPE CODE TESTS RESULT OUT OF REFERENCE UNITS RANGE LAB HSTN <12 ng/L High High Sensitivity BRAYAN 16 Result Comment: When assessing risk for acute coronary syndromes: In patients undergoing blood draw greater than or equal to 2 hours from symptom onset, with history of very low to moderate risk and non-ischemic ECG, an initial hs-Troponin T less than 12 ng/L AND a 1 hour delta hs-Troponin T less than 3 ng/L should be considered very low risk for 30 day MACE. Performed By: #### CBCDIF, CMP, HSTNT, LIPA #### [facility] [address] [place] [address] LIPASE Collected: 07/30/2017 Status: F Source: [place] 12:43 AM [facility] REPOSITORY TYPE CODE TESTS RESULT OUT OF REFERENCE UNITS RANGE LAB LIPA 16-61 U/L Lipase 17 Performed By: #### CBCDIF, CMP, HSTNT, LIPA #### [facility] [address] [place] [address] NURSING PROG Observed: 07/25/2017 Status: COMPLETED Source: [place] 2:46 PM [facility] REPOSITORY HNO ID: [id number] Author: Sandra (Mitchell) MITCHELL Szymanski Service: (none) Author Type: Registered Nurse Type: Nursing Progress Note Filed: 07/25/2017 2:53 PM Note Text: Nursing Progress Note Patient Name: Maxx Knott Patient Location: [place] [address]/[place]* This patient was reported missing from his room in 9119. We attempted to locate the patient within the hospital with no luck. Patient is believed to still have his Peripheral IV in. I attempted to call his phone number 3 times with no answer. I could not leave a message due to voicemail being full. [place] police have been contacted to do a wellness visit to check on the patient. This note was completed by: Sandra Szymanski RN NURSING PROG Observed: 07/25/2017 Status: COMPLETED Source: [place] 2:46 PM [facility] REPOSITORY HNO ID: [id number] Author: Acacia KingRn) MITCHELL Ragland Service: Nursing Author Type: Registered Nurse Type: Nursing Progress Note Filed: 07/25/2017 2:55 PM Note Text: Nursing Progress Note Patient Name: Maxx Knott Patient Location: [id number]/[facility]* Pt repeated asked about discharge, nurse stated that she did not have an order for pt to leave, but overheard physician talking about discharge orders. Pt left AMA at 1430. Richie Coyne called, with no success. This note was completed by: Acacia Ragland RN Physician notified of pt leaving, stated that if he was not found in 30 min, to discharge the pt AMA. CNDS Observed: 07/25/2017 Status: COMPLETED Source: [place] 2:46 PM [facility] REPOSITORY HNO ID: [id number] Author: Ratna Chavez Service: Hospital Medicine Author Type: Physician Type: Discharge Summaries Filed: 07/29/2017 11:15 PM Note Text: DISCHARGE NOTE (Patient Admitted Less than 48 Hours) SERVICE DATE: 07/25/17 SERVICE TIME: 1445 ADMISSION DATE: 07/21/2017 DISCHARGE DISPOSITION: AMA DIET: NA ACTIVITY AFTER DISCHARGE: NA FOLLOW UP CARE REQUIRED: NA DISCHARGE MEDICATIONS: NA FINAL DIAGNOSIS: Melena, chest pain, ostomy protrusion/hernia. No discharge planning was performed because the patient left AMA. SIGNATURE: Ratna Chavez MD PATIENT NAME: Maxx Knott DATE: July 29, 2017 TIME: 11:11 PM PAGER: [phone] CONSULT Observed: 07/25/2017 Status: COMPLETED Source: [place] 10:27 AM CL[facility] OTHER CAMPUS REPOSITORY O ID: [id number] Author: Bijan Benavides Service: Gastroenterology Author Type: Physician Type: Consults Filed: 07/25/2017 1:05 PM Note Text: CONSULT: GASTROENTEROLOGY SERVICE SERVICE DATE: 07/25/17 SERVICE TIME: 9:45 AM Subjective: Maxx Knott is a 67 year old male with history of perforated diverticulitis, peritonitis, AAA without rupture, CAD s/p CABG x3, and tobacco abuse presents for dark stools. He had a colostomy procedure performed about a year ago 2/2 perforated diverticulitis. Over a few months, the ostomy site began to protrude and prolapse. It is reducible and being followed by surgery. The patient was instructed to follow up with [facility] at [facility], but has not done so. He has not had previous episodes of dark stools before and he notes that the dark stools started yesterday afternoon. He denies use of iron supplements or use of Pepto-Bismol. He does have pain around the ostomy site as well as diffuse abdominal pain. He endorses nausea during bouts of pain but denies vomiting, dysphagia, jaundice, or bright red blood in the ostomy bag. He is passing flatus. He is able to tolerate a regular diet without nausea. He had an EGD 2-3 years ago which revealed no pathology. The patient is unsure whether he has had a colonoscopy in the past. He does take a baby aspirin, but no other blood thinners. 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 - Peritonitis ([facility]) PAST SURGICAL HISTORY Procedure Laterality Date - APPENDECTOMY HX - COLOSTOMY 07/2016 Diverting Loop Colostomy of the Transverse Colon - HEART SURGERY HX triple bypass 10 yrs ago - PPM IMPLANT - STENT - CORONARY FAMILY HISTORY Problem Relation Age of Onset - Coronary Artery Disease Father - Hyperlipidemia Father Current Facility-Administered Medications: morphine 4 mg injection 4 mg INTRAVENOUS q 4 H PRN Ratna Chavez 4 mg at 07/25/17 09 enoxaparin 40 mg injection (LOVENOX) 40 mg SUBCUTANEOUS q 24 HR Patricia Padron MD 40 mg at 07/25/17623 metoprolol succinate ER 200 mg tab(s) (TOPROL XL) 200 mg ORAL DAILY Gene A Kym 200 mg at 07/25/17927 iv contrast (radiology procedure) INTRAVENOUS DIRECTED PRN Jay Rizvi DO gabapentin 600 mg cap(s) (NEURONTIN) 600 mg ORAL AT BEDTIME Nithya Thayer MD 600 mg at 07/24/172019 pravastatin 40 mg tab(s) (PRAVACHOL) 40 mg ORAL AT BEDTIME Nithya Thayer MD 40 mg at 07/24/172019 losartan 100 mg tab(s) (COZAAR) 100 mg ORAL DAILY Nithya Thayer MD 100 mg at 07/25/17927 QUEtiapine 400 mg tab(s) (SEROquel) 400 mg ORAL AT BEDTIME Nithya Thayer MD 400 mg at 07/24/172019 tamsulosin ER 0.4 mg cap(s) (FLOMAX) 0.4 mg ORAL DAILY Nithya Thayer MD 0.4 mg at 07/25/17926 aspirin 81 mg chewable tab(s) 81 mg ORAL DAILY Nithya Thayer MD 81 mg at 07/25/17 0928 cyclobenzaprine 10 mg tab(s) (FLEXERIL) 10 mg ORAL AT BEDTIME Nithya Thayer MD 10 mg at 07/24/17 2130 isosorbide mononitrate ER 60 mg tab(s) (IMDUR) 60 mg ORAL DAILY Nithya Thayer MD 60 mg at 07/25/17 0928 nitroglycerin sublingual 0.4 mg tab(s) (NITROQUICK) 0.4 mg SUBLINGUAL q 15 MIN PRN Nithya Thayer MD amLODIPine 10 mg tab(s) (NORVASC) 10 mg ORAL DAILY Nithya Thayer MD 10 mg at 07/25/17 0928 0.9% NaCl 3-5 mL 3-5 mL INTRAVENOUS q 12 H Nithya Thayer MD 5 mL at 07/23/17 1213 0.9% NaCl 2-10 mL 2-10 mL INTRAVENOUS q 12 H Nithya Thayer MD 10 mL at 07/25/17 0928 oxyCODONE-acetaminophen 5-325 mg 2 tablet (PERCOCET) 2 tablet ORAL q 4 H PRN Qusay Haydour 2 tablet at 07/25/17 0625 ALLERGIES Allergen Reactions - Altaseptic Unknown - Crestor [Rosuvastat* Myalgia - Hctz [Amiloride-Hyd* Swelling - Other [place]-3s Unknown brelinta - Ramipril Swelling - Simvastatin Myalgia - Voltaren [Diclofena* Unknown Social History Marital status: Spouse name: Years of education: 12 Number of children: 3 Occupational History Occupation Employer [employer]* Retired Social History Main Topics Smoking status: Current Every Day Smoker Packs/day: 0.50 Years: 35.00 Types: Pipe, Cigarettes Smokeless status: Never Used Comment: Quit cigarettes 11-16-16 now smoking 4 pipes as of 04-18-17 Alcohol use: No Drug use: No Sexual activity: Not Currently REVIEW OF SYSTEMS: CONSTITUTIONAL: No fevers, nightsweats, unintended weight loss, +chills, weakness HEENT: +headache; denies nasal congestion/sinus symptoms, problematic allergy problems. EYES: No diplopia or blurry vision. CARDIOVASCULAR: +Lightheadedness; denies significant chest pain, dyspnea, palpitations, orthopnea, PND, ankle edema. PULM: +cough without sputum production; denies dyspnea. GI: No dysphagia/odynophagia, problematic reflux, constipation, diarrhea, changes in stool habits, hematochezia; +melena. : +dysuria and frequency; denies gross hematuria or pyuria. NEURO: No new balance problems, peripheral weakness/paresthesias or numbness of concern. MUSC-SKEL: No new joint pain, swelling, or erythema. PSY: No concerns regarding depression, anxiety or panic. INTEGUMENTARY: No new skin changes (rash, new or changing mole, new growth) Objective: 07/24/17 2225 07/24/17 2300 07/25/17 0237 07/25/17 0910 BP: 131/67 142/66 156/66 170/83 Pulse: 63 65 73 Resp: Temp: 36.4 ?C (97.5 ?F) 36.3 ?C (97.3 ?F) 36.4 ?C (97.5 ?F) TempSrc: Oral Oral Oral SpO2: 96% 97% 98% Weight: Height: PHYSICAL EXAMINATION: General appearance: Well appearing, alert, in no acute distress, well-hydrated, well nourished. Skin: Skin color, texture, turgor normal, no suspicious rashes or lesions Head: Normocephalic, no masses, lesions, tenderness or abnormalities Eyes: Anicteric sclera. Pupils are equally round and reactive to light. Extraocular movements are intact. Ears: External ears normal Nose/Sinuses: Nares normal, septum midline, mucosa normal, no drainage or sinus tenderness Oropharynx: Lips, mucosa, and tongue normal, teeth and gums normal, oropharynx normal Neck: Supple, no adenopathy; thyroid symmetric, normal size, no bruits Lungs: Lungs clear to auscultation. No wheezing, rhonchi, rales Heart: RRR without murmur, gallop, or rubs. No ectopy Abdomen: Abdomen soft, non-distended, diffuse mild tenderness to palpation in all quadrants. Bowel sounds normal. No masses, organomegaly; ostomy site is pink, moist, prolapsed (size of grapefruit), tender to palpation, but reducible; bag contents include brownish/black soft stool Extremities: No deformities, edema, skin discoloration, clubbing or cyanosis. Good capillary refill. Musculoskeletal: No joint swelling, deformity, or tenderness Peripheral pulses: Normal Neuro: CN 2-12 grossly intact. Sensation grossly intact. WBC (thou/cmm) Date Value 07/25/2017 7.92 RBC (mil/cmm) Date Value 07/25/2017 3.71 (L) Hemoglobin (g/dL) Date Value 06/25/2017 14.1 HGB (g/dL) Date Value 07/25/2017 11.6 (L) Hematocrit (%) Date Value 07/25/2017 35.1 (L) MCV (fl) Date Value 07/25/2017 94.6 MCH (pg) Date Value 07/25/2017 31.3 MCHC (%) Date Value 07/25/2017 33.0 RDW-CV (%) Date Value 06/25/2017 14.6 Platelet Count (thou/cmm) Date Value 07/25/2017 301 MPV (fl) Date Value 07/25/2017 10.7 Glucose (mg/dL) Date Value 07/25/2017 102 (H) BUN (mg/dL) Date Value 07/25/2017 30 (H) Creatinine (mg/dL) Date Value 07/25/2017 0.89 Sodium (mEq/L) Date Value 07/25/2017 141 Potassium (mEq/L) Date Value 07/25/2017 4.3 Chloride (mEq/L) Date Value 07/25/2017 109 (H) CO2 (mEq/L) Date Value 07/25/2017 27 Protein, Total (g/dL) Date Value 07/21/2017 7.9 Albumin (g/dL) Date Value 07/21/2017 3.9 Calcium (mg/dL) Date Value 07/25/2017 8.8 Alkaline Phosphatase (U/L) Date Value 07/21/2017 85 Bilirubin, Total (mg/dL) Date Value 07/21/2017 0.3 AST (U/L) Date Value 07/21/2017 21 ALT (U/L) Date Value 07/21/2017 18 URINLAYSIS Specific Morris, Ur Date Value Ref Range Status 07/21/2017 1.018 1.005 - 1.030 Final Glucose, Urine Date Value Ref Range Status 07/21/2017 NEGATIVE Negative mg/dL Final Bilirubin, Urine Date Value Ref Range Status 07/21/2017 NEGATIVE Negative Final Ketones, Urine Date Value Ref Range Status 07/21/2017 NEGATIVE Negative mg/dL Final Hemoglobin/Blood,Ur Date Value Ref Range Status 04/15/2017 Negative Negative Final Protein, Urine Date Value Ref Range Status 07/21/2017 NEGATIVE Negative mg/dL Final Urobilinogen, Urine Date Value Ref Range Status 07/21/2017 1.0 0.0 - 1.0 EU/dL Final WBC, Urine Date Value Ref Range Status 07/21/2017 0.6 0.0 - 5.0 /hpf Final EXAMINATION: ?CT ABDOMEN AND PELVIS WITH IV CONTRAST ? CLINICAL HISTORY: Fall, stoma protruding after fall ? TECHNIQUE: CT of the abdomen and pelvis was performed using standard technique, scanning from just above the dome of the diaphragm to the symphysis pubis. ? Sagittal and coronal reconstructions were performed. M: ?CTAP_3 ? Contrast: ?150 mL Omnipaque 300 IV Contrast oral: None CT Dose-Length Product: ?611.97 mGy*cm CT Dose Reduction Employed: 1. Automated exposure control (AEC) was used. ? ? COMPARISON: CT abdomen and pelvis 07/06/2017 ? ? RESULT: ? Lower thorax: Pacemaker leads are present in the right atrium and right ventricle. ? There is a hernia through the central aspect of the left hemidiaphragm with herniation of fat and a portion of the gastric fundus into the thorax. ? Liver: No mass. ?Normal hepatic morphology. ? Biliary: No bile duct dilation. ?Gallbladder is unremarkable. ? Spleen: No mass. No splenomegaly. ? Pancreas: No mass or duct?dilation. ? Adrenals: Nodular thickening of the left adrenal gland stable since 09/20/2016 right adrenal gland is unremarkable. ? Kidneys: No hydronephrosis. ?There is a 2.7 cm lesion in the mid left kidney which ?measures greater than fluid density this could represent a complicated cyst or solid renal mass. ?This has slightly increased in size when compared with the prior CT from 09/20/2016. ?There are subcentimeter cysts in both kidneys. ? GI tract: There are no dilated loops of large or small bowel. 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 ?The mucous fistula appears to protrude however through the ostomy site. ?There is also a loop of small bowel herniating into the stoma. ?There are multiple diverticula throughout the colon. ? ? ? Lymph nodes: No abdominal or pelvic lymphadenopathy. ? Mesentery/Peritoneum: No ascites or mass. ? Retroperitoneum: No mass. ? Vasculature: ?The celiac axis and SMA are patent. The portal vein and branches, splenic vein, SMV, and hepatic veins are patent. ?No abdominal aortic or iliac artery aneurysm. ? Pelvis: No mass, ascites or fluid collection. ? ? ? Bones/Soft Tissues: There are degenerative changes in the lumbar spine. ? ? IMPRESSION: ? 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 ?There is a parastomal hernia containing a loop of small bowel similar to the previous CT. ? There is a hernia through the central aspect of the left hemidiaphragm containing fat and a portion of the fundus of the stomach. ? ? There is a 2.7 cm low-attenuation lesion in the mid left kidney measuring greater than fluid density. ?This could represent a complicated cyst or solid renal mass. ?Further characterization with renal ultrasound or renal mass protocol CT is recommended. ?This could be performed on a nonemergent basis. Assessment AND Plan: 67 year old male with history of perforated diverticulitis s/p colostomy presenting for new onset of melena. GI bleed -patient takes baby ASA -currently on regular diet -hgb 11.6, stable, continue to monitor HANDH -consider EGD or PPI use Protruding colostomy -wound care -no surgical intervention at this time per surgery -follow up at [facility] Mary Mtz MS4 July 25, 2017 10:59 AM I performed a history and physical examination of the patient and discussed the management with the student. I reviewed the student's note and agree with the documented findings and plan of care. Pt's stool is now a dark brown. I recommended an EGD in AM but pt states he has to go home today b/c of court date in AM. Since stool is now brown it would be reasonable to d/c pt home on PPI and have him get EGD done at time of colonoscopy (which is supposed to be scheduled at [facility] before he has reversal of his colostomy and sigmoid resection). I told pt that if he gets any more black stool as outpatient then he needs to come back to ED. I discussed all of the above with Sound Attending (Dr. Palmer) as well. Bijan Benavides MD July 25, 2017 1:05 PM PROGRESS Observed: 07/25/2017 Status: COMPLETED Source: [place] 9:39 AM [facility]IC [facility] REPOSITORY HNO ID: [id number] Author: Verenice (Rn) MITCHELL Finn Service: Wound/Ostomy Author Type: Registered Nurse Type: Progress Notes Filed: 07/25/2017 9:42 AM Note Text: WOUND CARE NURSE PROGRESS NOTE SERVICE DATE: 07/25/2017 SERVICE TIME: 819 REASON FOR VISIT: Ostomy TIME SPENT (minutes): 45 Documentation from Wound Expert can be found in scanned documents. Patient seen today by tube rebuilder. Pouch changed today. Stoma pink, moist draining brown/black semi-soft stool. Stoma prolapsed/protruding. Ostomy Supplies at the bedside. Bedside RN at the bedside, aware of pouch application. tube rebuilder to follow. SIGNATURE: Verenice Finn RN PATIENT NAME: Maxx Knott DATE: July 25, 2017 TIME: 9:39 AM CONTACT#: [id number] HEMOGRAM/DIFF Collected: 07/25/2017 Status: F Source: [facility] 2:53 AM HEALTH SYSTEM REPOSITORY TYPE CODE TESTS RESULT OUT OF REFERENCE UNITS RANGE LAB WBC(LOINC) 4.23-9.07 thou/cmm WBC 7.92 LAB RBC(LOINC) 4.63-6.08 mil/cmm Low RBC 3.71 LAB HGB(LOINC) 13.7-17.5 g/dL Low Hgb 11.6 LAB HCT(LOINC) 40.1-51.0 % Low Hct 35.1 LAB MCV(LOINC) 83.2-95.6 fl MCV 94.6 LAB MCH(LOINC) 25.7-32.2 pg MCH 31.3 LAB MCHC(LOINC 32.3-36.5 % ) MCHC 33.0 LAB RDW(LOINC) 11.6-14.4 % RDW High 14.9 LAB RDWSD(LOIN 36.1-45.8 fl C) RDW SD High 52.0 LAB PLT(LOINC) 141-365 thou/cmm Platelet 301 LAB MPV(LOINC) 8.7-12.0 fl MPV 10.7 LAB SEG(LOINC) % Seg Neutrophil 56.8 LAB IGRE(LOINC % ) Immature Grans 0.50 LAB LYMPH(LOIN % C) Lymphocyte 29.0 LAB MNO(LOINC) % Monocyte 8.0 LAB EOSIN(LOIN % C) Eosinophil 5.2 LAB BASO(LOINC % ) Basophil 0.5 LAB SEGN(LOINC 1.78-5.38 thou/cmm ) Abs. Neut 4.50 LAB IGAB(LOINC 0.00-0.05 thou/cmm ) Abs Immature Grans 0.04 LAB LYMN(LOINC 0.84-2.85 thou/cmm ) Abs. Lymph 2.30 LAB MONON(LOIN 0.30-0.82 thou/cmm C) Abs. [place] 0.63 LAB EOSN(LOINC 0.04-0.54 thou/cmm ) Abs. Eosin 0.41 LAB BASON(LOIN 0.01-0.08 thou/cmm C) Abs. Baso 0.04 Performed By: #### CBCD1 #### [place] [address] BASIC PANEL Collected: 07/25/2017 Status: F Source: [facility] 2:53 AM HEALTH SYSTEM REPOSITORY TYPE CODE TESTS RESULT OUT OF REFERENCE UNITS RANGE LAB NA(LOINC) 136-145 mEq/L Sodium Blood 141 LAB K(LOINC) 3.5-5.1 mEq/L Potassium Blood 4.3 LAB CL(LOINC) 98-107 mEq/L Chloride High Blood 109 LAB CO2(LOINC) 21-32 mEq/L CO2 Blood 27 LAB GLU(LOINC) 70-99 mg/dL Glucose High Blood 102 LAB BUN(LOINC) 7-18 mg/dL BUN High Blood 30 LAB CREA(LOINC 0.67-1.17 mg/dL ) Creatinine Blood 0.89 LAB CA(LOINC) 8.5-10.1 mg/dL Calcium Blood 8.8 LAB ANGAP(LOIN 8-16 C) Anion Gap 9 Performed By: #### P8 #### [facility] [address] [place] [address] MAGNESIUM BLOOD Collected: 07/25/2017 Status: F Source: [facility] 2:53 AM HEALTH SYSTEM REPOSITORY TYPE CODE TESTS RESULT OUT OF REFERENCE UNITS RANGE LAB MAG(LOINC) 1.6-2.6 mg/dL Magnesium Blood 2.1 Performed By: #### MAG #### [facility] [address] [place] [address] PHOSPHORUS BLOOD Collected: 07/25/2017 Status: F Source: [facility] 2:53 AM HEALTH SYSTEM REPOSITORY TYPE CODE TESTS RESULT OUT OF REFERENCE UNITS RANGE LAB PHOS(LOINC 2.5-4.9 mg/dL ) Phosphorus Blood 3.3 Performed By: #### PHOS #### [place] [address] MDRD GFR Collected: 07/25/2017 Status: F Source: [facility] 2:53 AM HEALTH SYSTEM REPOSITORY TYPE CODE TESTS RESULT OUT OF RANGE REFERENCE UNITS LAB GFRFN(LOINC >60mL/min/1.73m ) 2 eGFR >60 Result Comment: If the patient is , multiply the result by 1.210. Performed By: #### GFR #### [place] [address] PROGRESS Observed: 07/24/2017 Status: COMPLETED Source: [place] 7:16 PM CLINIC OTHER CAMPUS REPOSITORY O ID: [id number] Author: Ratna Chavez Service: Hospital Medicine Author Type: Physician Type: Progress Notes Filed: 07/24/2017 7:18 PM Note Text: DEPARTMENT OF [facility]PITAL MEDICINE [place] [facility] PROGRESS NOTE- HOSPITAL DAY 1 SERVICE DATE: 07/24/2017 7:16 PM Hospital Medicine/Primary Attending: Ratna Chavez MD Patient Vitals for the past 24 hrs: BP Temp Temp src Pulse Resp SpO2 07/24/17 1545 149/65 36.6 ?C (97.9 ?F) Oral 70 18 95 % 07/24/17 0845 131/88 36.5 ?C (97.7 ?F) Oral 60 18 98 % 07/24/17 0442 127/71 37.6 ?C (99.7 ?F) - 90 16 98 % 07/23/17 2115 144/68 37.2 ?C (99 ?F) Oral 60 14 95 % Temp (24hrs), Av ?C (98.6 ?F), Min:36.5 ?C (97.7 ?F), Max:37.6 ?C (99.7 ?F) Pain Score: 8/10 (07/24/17 1816) CHIEF COMPLAINT: Chest pain OVERNIGHT EVENTS: Melena INTERVAL HISTORY OF PRESENT ILLNESS: Patient started noticing black appearance to stool, and sample was heme positive. Still with uncontrolled pain at times with stomal protrusion, some cramps. REVIEW OF SYSTEMS All other systems negative. Objective PHYSICAL EXAM: GENERAL: Alert, Mild Distress, Cooperative SKIN: Skin color, texture, turgor normal. No rashes or lesions. OROPHARYNX: Lips, mucosa, and tongue are normal.Teeth and gums, normal. Oropharynx normal. NECK: No jugulovenous distention, No carotid bruits, Carotid pulse normal contour, Supple LUNGS: Lungs clear to auscultation. Good diaphragmatic excursion. CARDIAC: Normal S1 and S2; no rubs, murmurs, or gallops ABDOMEN: Right colostomy site with markedly protruding stoma EXTREMITIES: Extremities normal, no deformities, edema, clubbing or skin discoloration. Good capillary refill., No ulcers NEURO: Alert, oriented X 3, Gait normal. Non-focal. Reflexes normal and symmetric. Sensation grossly intact., Cranial nerves II-XII intact PULSES: 2+ radial, 2+ carotid Assessment/Plan Principal Problem (Resolved): Chest pain POA: Yes Assessment AND Plan: no testing needed per cardiology ? Active Problems: Colostomy prolapse (HCC) POA: Yes Assessment AND Plan: No operative management until 6 months after GREY placement, which is August 14, then would have more favorable profile to go off plavix to have surgery. ? Chronic systolic congestive heart failure (HCC) POA: Yes Assessment AND Plan: last known EF 47%, reasonable risk profile to undergo surgery without current exacerbation ? CAD (coronary artery disease) POA: Yes Assessment AND Plan: had GREY 5 months ago. ? Essential hypertension POA: Yes Assessment AND Plan: Controlled Melena POA: No Assessment AND Plan: Consult GI. Minimally anemic, and stable, but follow Hgb and await input on possible endoscopy, will also get an opinion on stoma pain/protrusion CODE STATUS: Full PLANNED DISPOSITION: Home and Home with [facility] ? Plan of care discussed with: Patient and RN I spent 30 minutes in the visit, including chart review and discussion with other care providers, with more than 50% of the total [id number] time of the visit in counseling / coordination of care. ? Diagnostic tests reviewed for today's visit: Most recent labs and imaging results. Most recent EKG LABS CBC: Recent Labs 07/24/17 0415 WBC 6.90 HB 11.6* PLT 270 CMP: Recent Labs 07/24/17 0415 NA 142 K 4.7 CHLOR 110* CO2 29 BUN 27* CREAT 0.90 GLUC 101* CA 8.5 RADIOLOGY MEDICATIONS: Current hospital medications: morphine 4 mg injection 4 mg INTRAVENOUS q 4 H PRN enoxaparin 40 mg injection (LOVENOX) 40 mg SUBCUTANEOUS q 24 HR metoprolol succinate ER 200 mg tab(s) (TOPROL XL) 200 mg ORAL DAILY iv contrast (radiology procedure) INTRAVENOUS DIRECTED PRN gabapentin 600 mg cap(s) (NEURONTIN) 600 mg ORAL AT BEDTIME pravastatin 40 mg tab(s) (PRAVACHOL) 40 mg ORAL AT BEDTIME losartan 100 mg tab(s) (COZAAR) 100 mg ORAL DAILY QUEtiapine 400 mg tab(s) (SEROquel) 400 mg ORAL AT BEDTIME tamsulosin ER 0.4 mg cap(s) (FLOMAX) 0.4 mg ORAL DAILY aspirin 81 mg chewable tab(s) 81 mg ORAL DAILY cyclobenzaprine 10 mg tab(s) (FLEXERIL) 10 mg ORAL AT BEDTIME isosorbide mononitrate ER 60 mg tab(s) (IMDUR) 60 mg ORAL DAILY nitroglycerin sublingual 0.4 mg tab(s) (NITROQUICK) 0.4 mg SUBLINGUAL q 15 MIN PRN amLODIPine 10 mg tab(s) (NORVASC) 10 mg ORAL DAILY 0.9% NaCl 3-5 mL 3-5 mL INTRAVENOUS q 12 H 0.9% NaCl 2-10 mL 2-10 mL INTRAVENOUS q 12 H oxyCODONE-acetaminophen 5-325 mg 2 tablet (PERCOCET) 2 tablet ORAL q 4 H PRN Medications Discontinued During This Encounter Medication Reason - nitroglycerin sublingual 0.4 mg tab(s) (NITROQUICK) - oxyCODONE-acetaminophen 1 tablet (PERCOCET 10) - metoprolol succinate ER 100 mg tab(s) (TOPROL XL) - enoxaparin 90 mg injection (LOVENOX) SIGNATURE: Ratna Chavez MD PATIENT NAME: Maxx Knott DATE: July 24, 2017 TIME: 7:16 PM PAGER/CONTACT #: [phone] NIGHT AND WEEKEND COVERAGE: After 7pm please page [phone] FECAL OCCULT BLOOD Collected: 07/24/2017 Status: F Source: [facility] 4:24 PM HEALTH SYSTEM REPOSITORY TYPE CODE TESTS RESULT OUT OF RANGE REFERENCE UNITS LAB OCCU2(LOIN NEGATIVE C) Abnormal Fecal POSITIVE Occult Blood Performed By: #### OCCU2 #### [facility] [address] [place] [id number] ALLIED HEALTH Observed: 07/24/2017 Status: COMPLETED Source: [place] 4:20 PM CLINIC OTHER CAMPUS REPOSITORY HNO ID: [id number] Author: Paulette Muller Office Coord Service: (none) Author Type: (none) Type: Allied Health Filed: 07/24/2017 4:20 PM Note Text: ENGINEERING AID NOTE SERVICE DATE: 07/24/2017 SERVICE TIME: 1620 Referral: Home Care referral received by: CM Will continue to follow for physician orders SIGNATURE: Paulette Muller Office Coord PATIENT NAME: Maxx Knott DATE: July 24, 2017 TIME: 4:20 PM CASE MGT INIT Observed: 07/24/2017 Status: COMPLETED Source: [facility] 3:08 PM CLINIC OTHER CAMPUS REPOSITORY HNO ID: [id number] Author: Louisa KingRn) MITCHELL Guillory Service: Care Management Author Type: Registered Nurse Type: Care Mgt Initial Assessment Filed: 07/24/2017 3:13 PM Note Text: CARE MANAGEMENT: ASSESSMENT AND DISCHARGE PLAN SERVICE DATE: 07/24/2017 SERVICE TIME: 1508 PRIMARY CARE PHYSICIAN: Bijan Perez MD ADMISSION STATUS: Inpatient Needs Prior to Discharge: Home Care Order MEDICAL: Patient/Home Comfort Advisor Stated Goals: To improve my functional status Health Insurance: MEDICARE A AND B Medicare Health Issues Impacting Discharge Plan: None Last Admission Date: Previous admit date: 07/06/2017 Is this Within the Past 30 days? Yes Is This a Planned Readmission? No: New symptoms of underlying disease Followed Up with Appointment Prior to Admission: No appointment scheduled Where Did the Patient Come From? Home Intervention Taken to Avoid Future Readmission? tbd Advance Directive: Health Literacy: 1. How often do you need to have someone help you when you read instructions, pamphlets, or other written material from your doctor or pharmacy? Never - 1 2. How confident are you filling out medical forms by yourself? Extremely - 1 If Patient scores > 3 on either question, the following interventions were put into place: Patient did not score > 3 FUNCTIONAL AND COGNITIVE/BEHAVIORAL PRIOR TO ADMISSION: Baseline Mental Status: Alert AND Oriented, Person, Place , Time and Situation Functional Status: Independent Does Patient Currently Receive Any Community Services or Home Care? None Equipment Prior to Admission: Bi-level Positive Airway Pressure/Continuous Positive Airway Pressure Cane - Straight Walker Has the Patient Been in a Half-Way Facility in the Past 30 days? No SOCIAL: Living Arrangement: Home Lives With: brother Financial Resources: Disabled Primary Contact: Extended Emergency Contact Information Primary Emergency Contact: Mary Knott Address: [address] [place] [address] [address] [place] [address] Mobile Relation: Brother Supportive: Yes Other Important Patient Contacts: None Caregiver Assessment: Caregiver is ready, willing and able to meet the patient's needs as recommended by the inter-professional team? No Patient's transition needs and plan for meeting these needs: pt will need some hhc at discharge Does the patient have an acute stroke diagnosis, or has the patient had a stroke during this admission? No Medication Adherence: I am convinced of the importance of my prescription medication: Agree mostly - 0 I worry that my prescription medication will do more harm than good to me Disagree mostly - 0 I feel financially burdened by my [id number] expenses for my prescription medication: Disagree mostly -0 Patient is categorized as low risk < 2 Are you interested in bedside delivery of your medications? Yes Food Concerns: In the Last Month, Have You had Trouble Getting Food? No trouble getting food During the Last Month, Have You Worried Whether Your Food Would Run Out Before You Had Enough Money to Buy More? No Is the Patient Psychosocially Complex? No ASSESSMENT AND PLAN: Medical Needs: None Psychosocial Needs: None FREEDOM OF CHOICE EXPLAINED: N/A POTENTIAL TRANSITION PLANS Home Care Pt planning on home at de. Would like some hhc at de to help with his ostomy care as he has a hard time changing the pouch. Will task hhc, plan is home at de no new needs. SIGNATURE: Louisa Guillory RN PATIENT NAME: Maxx Knott DATE: July 24, 2017 TIME: 3:08 PM PAGER/CONTACT #: [phone] NURSING PROG Observed: 07/24/2017 Status: COMPLETED Source: [place] 1:47 PM CLINIC OTHER CAMPUS REPOSITORY HNO ID: [id number] Author: Judy Toth) MITCHELL Martinez Service: Nursing Author Type: Registered Nurse Type: Nursing Progress Note Filed: 07/24/2017 1:48 PM Note Text: Patient states his BM color is different then it's ever been before. Noted dark, almost black stool. Paged Dr. Chavez to notify of patient's concerns. HEMOGRAM/DIFF Collected: 07/24/2017 Status: F Source: [facility] 4:15 AM HEALTH SYSTEM REPOSITORY TYPE CODE TESTS RESULT OUT OF REFERENCE UNITS RANGE LAB WBC(LOINC) 4.23-9.07 thou/cmm WBC 6.90 LAB RBC(LOINC) 4.63-6.08 mil/cmm Low RBC 3.69 LAB HGB(LOINC) 13.7-17.5 g/dL Low Hgb 11.6 LAB HCT(LOINC) 40.1-51.0 % Low Hct 34.8 LAB MCV(LOINC) 83.2-95.6 fl MCV 94.3 LAB MCH(LOINC) 25.7-32.2 pg MCH 31.4 LAB MCHC(LOINC 32.3-36.5 % ) MCHC 33.3 LAB RDW(LOINC) 11.6-14.4 % RDW High 15.2 LAB RDWSD(LOIN 36.1-45.8 fl C) RDW SD High 52.8 LAB PLT(LOINC) 141-365 thou/cmm Platelet 270 LAB MPV(LOINC) 8.7-12.0 fl MPV 10.5 LAB SEG(LOINC) % Seg Neutrophil 51.6 LAB IGRE(LOINC % ) Immature Grans 0.60 LAB LYMPH(LOIN % C) Lymphocyte 33.3 LAB MNO(LOINC) % Monocyte 8.6 LAB EOSIN(LOIN % C) Eosinophil 5.5 LAB BASO(LOINC % ) Basophil 0.4 LAB SEGN(LOINC 1.78-5.38 thou/cmm ) Abs. Neut 3.56 LAB IGAB(LOINC 0.00-0.05 thou/cmm ) Abs Immature Grans 0.04 LAB LYMN(LOINC 0.84-2.85 thou/cmm ) Abs. Lymph 2.30 LAB MONON(LOIN 0.30-0.82 thou/cmm C) Abs. [place] 0.59 LAB EOSN(LOINC 0.04-0.54 thou/cmm ) Abs. Eosin 0.38 LAB BASON(LOIN 0.01-0.08 thou/cmm C) Abs. Baso 0.03 Performed By: #### CBCD1 #### [place] [address] BASIC PANEL Collected: 07/24/2017 Status: F Source: [facility] 4:15 AM HEALTH SYSTEM REPOSITORY TYPE CODE TESTS RESULT OUT OF REFERENCE UNITS RANGE LAB NA(LOINC) 136-145 mEq/L Sodium Blood 142 LAB K(LOINC) 3.5-5.1 mEq/L Potassium Blood 4.7 LAB CL(LOINC) 98-107 mEq/L Chloride High Blood 110 LAB CO2(LOINC) 21-32 mEq/L CO2 Blood 29 LAB GLU(LOINC) 70-99 mg/dL Glucose High Blood 101 LAB BUN(LOINC) 7-18 mg/dL BUN High Blood 27 LAB CREA(LOINC 0.67-1.17 mg/dL ) Creatinine Blood 0.90 LAB CA(LOINC) 8.5-10.1 mg/dL Calcium Blood 8.5 LAB ANGAP(LOIN 8-16 C) Anion Gap 8 Performed By: #### P8 #### [place] [address] MAGNESIUM BLOOD Collected: 07/24/2017 Status: F Source: [facility] 4:15 AM HEALTH SYSTEM REPOSITORY TYPE CODE TESTS RESULT OUT OF REFERENCE UNITS RANGE LAB MAG(LOINC) 1.6-2.6 mg/dL Magnesium Blood 1.9 Performed By: #### MAG #### [place] [address] PHOSPHORUS BLOOD Collected: 07/24/2017 Status: F Source: [facility] 4:15 AM HEALTH SYSTEM REPOSITORY TYPE CODE TESTS RESULT OUT OF REFERENCE UNITS RANGE LAB PHOS(LOINC 2.5-4.9 mg/dL ) Phosphorus Blood 3.0 Performed By: #### PHOS #### [place] [address] MDRD GFR Collected: 07/24/2017 Status: F Source: [facility] 4:15 AM HEALTH SYSTEM REPOSITORY TYPE CODE TESTS RESULT OUT OF RANGE REFERENCE UNITS LAB GFRFN(LOINC >60mL/min/1.73m ) 2 eGFR >60 Result Comment: If the patient is , multiply the result by 1.210. Performed By: #### GFR #### [facility] [address] [place] [address] PROGRESS Observed: 07/23/2017 Status: COMPLETED Source: [place] 7:37 PM CLINIC OTHER CAMPUS REPOSITORY HNO ID: [id number] Author: Ratna Chavez Service: Hospital Medicine Author Type: Physician Type: Progress Notes Filed: 07/24/2017 6:24 PM Note Text: DEPARTMENT OF H[facility]PITAL MEDICINE [place] [facility] PROGRESS NOTE- HOSPITAL DAY 0 SERVICE DATE: 07/23/2017 7:37 PM Hospital Medicine/Primary Attending: Ratna Chavez MD Patient Vitals for the past 24 hrs: BP Temp Temp src Pulse Resp SpO2 07/23/17 1640 147/78 36.6 ?C (97.9 ?F) Oral 63 18 97 % 07/23/17 1207 138/70 36.5 ?C (97.7 ?F) Oral 77 18 93 % 07/23/17 0837 148/80 36.6 ?C (97.9 ?F) Oral 69 20 95 % 07/23/17 0237 119/63 36.4 ?C (97.5 ?F) Oral 68 18 95 % 07/22/17 2000 115/55 36.8 ?C (98.2 ?F) Oral 75 18 93 % Temp (24hrs), Av.6 ?C (97.8 ?F), Min:36.4 ?C (97.5 ?F), Max:36.8 ?C (98.2 ?F) Pain Score: 7/10 (07/23/17 1738) CHIEF COMPLAINT: <principal problem not specified> OVERNIGHT EVENTS: None INTERVAL HISTORY OF PRESENT ILLNESS: Continues to have marked discomfort at stoma with protrusion. Unhappy with having to wait to have revision/reversal surgery. Surgery notes reviewed. REVIEW OF SYSTEMS All other systems negative. Objective PHYSICAL EXAM: GENERAL: Alert, Mild Distress, Cooperative SKIN: Skin color, texture, turgor normal. No rashes or lesions. OROPHARYNX: Lips, mucosa, and tongue are normal.Teeth and gums, normal. Oropharynx normal. NECK: No jugulovenous distention, No carotid bruits, Carotid pulse normal contour, Supple LUNGS: Lungs clear to auscultation. Good diaphragmatic excursion. CARDIAC: Normal S1 and S2; no rubs, murmurs, or gallops ABDOMEN: Right colostomy site with markedly protruding stoma EXTREMITIES: Extremities normal, no deformities, edema, clubbing or skin discoloration. Good capillary refill., No ulcers NEURO: Alert, oriented X 3, Gait normal. Non-focal. Reflexes normal and symmetric. Sensation grossly intact., Cranial nerves II-XII intact PULSES: 2+ radial, 2+ carotid Assessment/Plan Principal Problem (Resolved): Chest pain POA: Yes Assessment AND Plan: no testing needed per cardiology Active Problems: Colostomy prolapse (HCC) POA: Yes Assessment AND Plan: No operative management until 6 months after GREY placement, which is August 14, then would have more favorable profile to go off plavix to have surgery. Chronic systolic congestive heart failure (HCC) POA: Yes Assessment AND Plan: last known EF 47%, reasonable risk profile to undergo surgery without current exacerbation CAD (coronary artery disease) POA: Yes Assessment AND Plan: had GREY 5 months ago. Essential hypertension POA: Yes Assessment AND Plan: Controlled CODE STATUS: Full PLANNED DISPOSITION: Home and Home with [facility] Plan of care discussed with: Patient and RN I spent 30 minutes in the visit, including chart review and discussion with other care providers, with more than 50% of the total [id number] time of the visit in counseling / coordination of care. Diagnostic tests reviewed for today's visit: Most recent labs and imaging results. Most recent EKG TELEMETRY: NSR LABS CBC: Recent Labs 07/23/17 0242 WBC 8.07 HB 11.4* PLT 288 CMP: Recent Labs 07/23/17 0242 NA 141 K 4.0 CHLOR 107 CO2 32 BUN 32* CREAT 1.22* GLUC 109* CA 8.7 RADIOLOGY MEDICATIONS: Current hospital medications: enoxaparin 40 mg injection (LOVENOX) 40 mg SUBCUTANEOUS q 24 HR metoprolol succinate ER 200 mg tab(s) (TOPROL XL) 200 mg ORAL DAILY iv contrast (radiology procedure) INTRAVENOUS DIRECTED PRN gabapentin 600 mg cap(s) (NEURONTIN) 600 mg ORAL AT BEDTIME pravastatin 40 mg tab(s) (PRAVACHOL) 40 mg ORAL AT BEDTIME losartan 100 mg tab(s) (COZAAR) 100 mg ORAL DAILY QUEtiapine 400 mg tab(s) (SEROquel) 400 mg ORAL AT BEDTIME tamsulosin ER 0.4 mg cap(s) (FLOMAX) 0.4 mg ORAL DAILY aspirin 81 mg chewable tab(s) 81 mg ORAL DAILY cyclobenzaprine 10 mg tab(s) (FLEXERIL) 10 mg ORAL AT BEDTIME isosorbide mononitrate ER 60 mg tab(s) (IMDUR) 60 mg ORAL DAILY nitroglycerin sublingual 0.4 mg tab(s) (NITROQUICK) 0.4 mg SUBLINGUAL q 15 MIN PRN amLODIPine 10 mg tab(s) (NORVASC) 10 mg ORAL DAILY 0.9% NaCl 3-5 mL 3-5 mL INTRAVENOUS q 12 H 0.9% NaCl 2-10 mL 2-10 mL INTRAVENOUS q 12 H oxyCODONE-acetaminophen 5-325 mg 2 tablet (PERCOCET) 2 tablet ORAL q 4 H PRN Medications Discontinued During This Encounter Medication Reason - nitroglycerin sublingual 0.4 mg tab(s) (NITROQUICK) - oxyCODONE-acetaminophen 1 tablet (PERCOCET 10) - metoprolol succinate ER 100 mg tab(s) (TOPROL XL) - enoxaparin 90 mg injection (LOVENOX) SIGNATURE: Ratna Chavez MD PATIENT NAME: Maxx Knott DATE: July 23, 2017 TIME: 7:37 PM PAGER/CONTACT #: [phone] NIGHT AND WEEKEND COVERAGE: After 7pm please page [phone] US KIDNEY COMPLETE Observed: 07/23/2017 Status: F Source: [facility] 4:32 PM HEALTH SYSTEM REPOSITORY Performed at [facility] APPROVED BY: Chino Chan MD EXAM TITLE: US KIDNEY COMPLETE DATE: 07/23/2017 16:01 COMPARISON: CT study performed 2 days ago CLINICAL INDICATION/HISTORY: Left renal mass TECHNIQUE: Renal ultrasound. Images stored in a permanent archive. FINDINGS: Each kidney measures approximately 13 cm in length. There is normal bilateral cortical thickness and echogenicity. There are 2 adjacent left renal cystic masses measuring 25 and 14 mm. Both demonstrate minimal low level internal echoes and are thought to represent mildly complex cyst. There is good through transmi ssion and posterior wall enhancement. There is a small right renal cyst measuring 1 cm. No solid renal mass is present. No hydronephrosis or shadowing calculus. IMPRESSION: Bilateral renal cysts. The recently described left renal mass appears to represent a slightly complex cyst. No solid renal mass identified. CONSULT Observed: 07/23/2017 Status: COMPLETED Source: [place] 9:44 AM CLINIC OTHER CAMPUS REPOSITORY O ID: [id number] Author: Verenice (Rn) MITCHELL Finn Service: Wound/Ostomy Author Type: Registered Nurse Type: Consults Filed: 07/23/2017 9:52 AM Note Text: WOUND CARE NURSE CONSULT NOTE SERVICE DATE: 07/23/2017 SERVICE TIME: 0945 REASON FOR VISIT: Ostomy TIME SPENT (minutes): 30 Documentation from Wound Expert can be found in scanned documents. tube rebuilder consulted to see patient. Patient stated that he fell at home onto his abdomen. Stoma pink, moist, no blood, draining brown semi- soft stool. Surgery assessed patient on 07/22/17. Patient states he changes entire pouch every 7 days, dispatcher bus and trolley instructed patient to change pouch every 3-4 days. Patient's ostomy belt was very tight, instructed patient to loosen belt to reduce the risk of trauma to the stoma or peristomal skin. Patient has minimal supplies at the bedside. Dara 4 / with a window left at the bedside along with stoma paste and skin prep. Patient given information of re-ordering ostomy supplies for home use. Instructed bedside RN about the patient's supplies, Bedside RN verbalized understanding. tube rebuilder to follow. SIGNATURE: Vreenice Finn RN PATIENT NAME: Maxx Knott DATE: July 23, 2017 TIME: 9:45 AM CONTACT#: [id number] NURSING PROG Observed: 07/23/2017 Status: COMPLETED Source: [place] 8:47 AM [facility] REPOSITORY HNO ID: [id number] Author: Judy (Rn) MITCHELL Martinez Service: Nursing Author Type: Registered Nurse Type: Nursing Progress Note Filed: 07/23/2017 8:55 AM Note Text: RN spoke with Dr. Chavez concerning patients' code status on Epic vs. Inpatient note by Dr. Thayer stating patient was DNRCCA. PROGRESS Observed: 07/23/2017 Status: COMPLETED Source: [place] 5:20 AM [facility] OTHER [place] REPOSITORY HNO ID: [id number] Author: Patricia Padron MD Service: Hospital Medicine Author Type: Physician Type: Progress Notes Filed: 07/23/2017 5:45 AM Note Text: INPATIENT PROGRESS NOTE SERVICE DATE: 07/22/2017 SERVICE TIME: 8 pm Subjective Pt. Seen and examined. He states that his CP is improving. He is also complaining of pain at the stoma site as well as a headache. No other complaints. Subjective Current hospital medications: enoxaparin 90 mg injection (LOVENOX) 1 mg/kg/dose SUBCUTANEOUS q 12 HR metoprolol succinate ER 200 mg tab(s) (TOPROL XL) 200 mg ORAL DAILY iv contrast (radiology procedure) INTRAVENOUS DIRECTED PRN gabapentin 600 mg cap(s) (NEURONTIN) 600 mg ORAL AT BEDTIME pravastatin 40 mg tab(s) (PRAVACHOL) 40 mg ORAL AT BEDTIME losartan 100 mg tab(s) (COZAAR) 100 mg ORAL DAILY QUEtiapine 400 mg tab(s) (SEROquel) 400 mg ORAL AT BEDTIME tamsulosin ER 0.4 mg cap(s) (FLOMAX) 0.4 mg ORAL DAILY aspirin 81 mg chewable tab(s) 81 mg ORAL DAILY cyclobenzaprine 10 mg tab(s) (FLEXERIL) 10 mg ORAL AT BEDTIME isosorbide mononitrate ER 60 mg tab(s) (IMDUR) 60 mg ORAL DAILY nitroglycerin sublingual 0.4 mg tab(s) (NITROQUICK) 0.4 mg SUBLINGUAL q 15 MIN PRN amLODIPine 10 mg tab(s) (NORVASC) 10 mg ORAL DAILY 0.9% NaCl 3-5 mL 3-5 mL INTRAVENOUS q 12 H 0.9% NaCl 2-10 mL 2-10 mL INTRAVENOUS q 12 H oxyCODONE-acetaminophen 5-325 mg 2 tablet (PERCOCET) 2 tablet ORAL q 4 H PRN Objective Objective GENERAL: Alert, no distress, cooperative HEAD/SINUSES: No significant findings EYES: PERRLA, EOMI NOSE: Nares normal. Septum midline. BACK: Back symmetric, Normal curvature, ROM normal, No CVAT. LUNGS: Lungs clear to auscultation, Good diaphragmatic excursion and no chest wall tenderness, sternotomy scar noted CARDIAC: Normal S1 and S2; no rubs, murmurs, or gallops ABDOMEN: protruding stoma. EXTREMITIES: no edema (b/l) Patient Vitals for the past 24 hrs: BP Temp Temp src Pulse Resp SpO2 07/23/17 0237 119/63 36.4 ?C (97.5 ?F) Oral 68 18 95 % 07/22/17 2000 115/55 36.8 ?C (98.2 ?F) Oral 75 18 93 % 07/22/17 1500 112/63 37 ?C (98.6 ?F) Oral 78 18 93 % 07/22/17 1224 143/76 36.3 ?C (97.3 ?F) Oral 73 18 96 % 07/22/17 0815 165/76 36.2 ?C (97.2 ?F) Oral 82 18 92 % Body mass index is 30.42 kg/(m2). Assessment/Plan Active Problems: 1.) Chest pain: Pt. Was seen by cardiology, Dr. Mejía. No further tests at this time. Will change the patient from therapeutic lovenox to prophylactic dose. trops x3 (-) 2.) Protruding stoma: Gen surgery and ostomy nurse consult pending. 3.) Lesion on the kidneys: US is pending. 4.) S/p mechanical fall 5.) Mild SCHWARZ- C/w monitoring- may need a CT scan of the head to evaluate. 6.) Chronic systolic congestive heart failure (HCC); EF: 47% 7.) CAD (coronary artery disease): c/w ASA, pravastatin, metoprolol and norvasc. 7.) Diverticulitis of sigmoid colon s/p colostomy 8.) Abdominal aortic aneurysm without rupture (HCC) 9.) Essential hypertension controlled. Monitor and adjust. Patricia Padron MD HEMOGRAM/DIFF Collected: 07/23/2017 Status: F Source: [facility] 2:42 AM [facility] REPOSITORY TYPE CODE TESTS RESULT OUT OF REFERENCE UNITS RANGE LAB WBC(LOINC) 4.23-9.07 thou/cmm WBC 8.07 LAB RBC(LOINC) 4.63-6.08 mil/cmm Low RBC 3.69 LAB HGB(LOINC) 13.7-17.5 g/dL Low Hgb 11.4 LAB HCT(LOINC) 40.1-51.0 % Low Hct 35.3 LAB MCV(LOINC) 83.2-95.6 fl MCV High 95.7 LAB MCH(LOINC) 25.7-32.2 pg MCH 30.9 LAB MCHC(LOINC 32.3-36.5 % ) MCHC 32.3 LAB RDW(LOINC) 11.6-14.4 % RDW High 15.3 LAB RDWSD(LOIN 36.1-45.8 fl C) RDW SD High 54.3 LAB PLT(LOINC) 141-365 thou/cmm Platelet 288 LAB MPV(LOINC) 8.7-12.0 fl MPV 10.7 LAB SEG(LOINC) % Seg Neutrophil 55.7 LAB IGRE(LOINC % ) Immature Grans 0.40 LAB LYMPH(LOIN % C) Lymphocyte 31.4 LAB MNO(LOINC) % Monocyte 8.2 LAB EOSIN(LOIN % C) Eosinophil 3.8 LAB BASO(LOINC % ) Basophil 0.5 LAB SEGN(LOINC 1.78-5.38 thou/cmm ) Abs. Neut 4.49 LAB IGAB(LOINC 0.00-0.05 thou/cmm ) Abs Immature Grans 0.03 LAB LYMN(LOINC 0.84-2.85 thou/cmm ) Abs. Lymph 2.53 LAB MONON(LOIN 0.30-0.82 thou/cmm C) Abs. [place] 0.66 LAB EOSN(LOINC 0.04-0.54 thou/cmm ) Abs. Eosin 0.31 LAB BASON(LOIN 0.01-0.08 thou/cmm C) Abs. Baso 0.04 Performed By: #### [id number] #### [place] [address] BASIC PANEL Collected: 07/23/2017 Status: F Source: [facility] 2:42 AM HEALTH SYSTEM REPOSITORY TYPE CODE TESTS RESULT OUT OF REFERENCE UNITS RANGE LAB NA(LOINC) 136-145 mEq/L Sodium Blood 141 LAB K(LOINC) 3.5-5.1 mEq/L Potassium Blood 4.0 LAB CL(LOINC) 98-107 mEq/L Chloride Blood 107 LAB CO2(LOINC) 21-32 mEq/L CO2 Blood 32 LAB GLU(LOINC) 70-99 mg/dL Glucose High Blood 109 LAB BUN(LOINC) 7-18 mg/dL BUN High Blood 32 LAB CREA(LOINC 0.67-1.17 mg/dL ) High Creatinine Blood 1.22 LAB CA(LOINC) 8.5-10.1 mg/dL Calcium Blood 8.7 LAB ANGAP(LOIN 8-16 C) Low Anion Gap 6 Performed By: #### P8 #### [place] [address] MAGNESIUM BLOOD Collected: 07/23/2017 Status: F Source: [facility] 2:42 AM HEALTH SYSTEM REPOSITORY TYPE CODE TESTS RESULT OUT OF REFERENCE UNITS RANGE LAB MAG(LOINC) 1.6-2.6 mg/dL Magnesium Blood 2.1 Performed By: #### MAG #### [place] [address] PHOSPHORUS BLOOD Collected: 07/23/2017 Status: F Source: [facility] 2:42 AM HEALTH SYSTEM REPOSITORY TYPE CODE TESTS RESULT OUT OF REFERENCE UNITS RANGE LAB PHOS(LOINC 2.5-4.9 mg/dL ) Phosphorus Blood 3.0 Performed By: #### PHOS #### [facility] [address] [place], [place] [address] MDRD GFR Collected: 07/23/2017 Status: F Source: [facility] 2:42 AM HEALTH SYSTEM REPOSITORY TYPE CODE TESTS RESULT OUT OF RANGE REFERENCE UNITS LAB GFRFN(LOINC >60mL/min/1.73m ) 2 eGFR 59.42 Result Comment: If the patient is , multiply the result by 1.210. Performed By: #### GFR #### [facility] [address] [place], [place] [address] CONSULT Observed: 07/22/2017 Status: COMPLETED Source: [place] 9:02 PM CLINIC OTHER CAMPUS REPOSITORY HNO ID: [id number] Author: Isaias Tyson Service: General Surgery Author Type: Resident Type: Consults Filed: 07/23/2017 3:39 AM Note Text: Attestation signed by Johnny Camargo at 07/23/2017 11:45 AM I agree with the above evaluation by the resident. Johnny Camargo MD, [place], [facility] CONSULT SERVICE DATE: 07/22/2017 SERVICE TIME: 9:06 PM REASON FOR CONSULT: Parastomal Hernia REQUESTING PHYSICIAN: Luciano PRIMARY CARE PHYSICIAN: Bijan Perez MD Subjective HISTORY OF PRESENT ILLNESS: Mr. Knott is a 67 year old male with an extensive cardiac history, recurrent sigmoid diverticulitis, diverting loop colostomy with known non-obstructing parastomal and prolapsing stoma both of which are historically reducible. Patient is well known to our service for multiple recurrent hospitalizations and supposed falls. He has been evaluated by our surgical team and deemed a poor surgical candidate. He is also known to [facility] service at [facility] and has failed to follow up with their clinic for elective surgical planning. 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 - Peritonitis ([facility]) PAST SURGICAL HISTORY Procedure Laterality Date - APPENDECTOMY HX - COLON SURGERY HX 07/2016 [facility]'s - HEART SURGERY HX triple bypass 10 yrs ago FAMILY HISTORY Problem Relation Age of Onset - Coronary Artery Disease Father - Hyperlipidemia Father Social History Substance Use Topics - Smoking status: Current Every Day Smoker Packs/day: 0.50 Years: 35.00 Types: Pipe, Cigarettes - Smokeless tobacco: Never Used Comment: Quit cigarettes 11-16-16 now smoking 4 pipes as of 04-18-17 - Alcohol use No Prescriptions Prior to Admission: loratadine 10 mg cap Take 1 capsule every day by oral route. Disp: Rfl: Past Week at 0900 tamsulosin ER (FLOMAX) 0.4 mg cp24 Take 1 capsule every day by oral route. Disp: Rfl: 07/20/2017 at Unknown time oxyCODONE-acetaminophen (PERCOCET 10) 10-325 mg tablet TK 1 T PO BID PRN Disp: Rfl: 07/20/2017 at 0900 AMLODIPINE BESYLATE (AMLODIPINE ORAL) Take 10 mg by mouth once daily. Disp: Rfl: 07/21/2017 at 0900 pravastatin (PRAVACHOL) 40 mg tablet Take 40 mg by mouth daily at bedtime. Disp: Rfl: 07/20/2017 at 2100 cyclobenzaprine (FLEXERIL) 10 mg tablet Take 1 tablet by mouth daily at bedtime. Disp: 90 tablet Rfl: 0 07/20/2017 at 2100 gabapentin (NEURONTIN) 300 mg capsule Take 2 capsules by mouth daily at bedtime for 90 days. Disp: 90 capsule Rfl: 0 05/15/2017 at Unknown time metoprolol succinate ER (TOPROL XL) 100 mg Tb24 Take 1 tablet by mouth once daily. Disp: 90 tablet Rfl: 4 07/21/2017 at 0900 QUEtiapine (SEROQUEL) 200 mg tablet Take 2 tablets by mouth daily at bedtime. Disp: 60 tablet Rfl: 0 07/21/2017 at 2100 COMPOUNDED PRESCRIPTION One Piece Ostomy Pouch Item Type: Coloplast Sensura One Piece Non-Sterile with Window 07/05-05/01'' ?5/BoxICD 10: Prolapsed Stoma K94.09 Disp: 1 Box Rfl: 0 05/13/2017 COMPOUNDED PRESCRIPTION Paste: Convatec Stomahesive 1 tubeICD 10: Prolapsed Stoma K 94.09 Disp: 1 Tube Rfl: 0 05/13/2017 MULTIVIT WITH IRON,MINERALS (MULTIVITAMIN AND MINERALS ORAL) Take 1 capsule by mouth. Disp: Rfl: 07/21/2017 at 0900 albuterol HFA (PROVENTIL HFA, VENTOLIN HFA) 90 mcg/actuation inhaler Inhale as instructed. Disp: Rfl: 05/13/2017 fluticasone (FLONASE) 50 mcg/actuation nasal spray Use in the nose. Disp: Rfl: 07/21/2017 at 0900 nitroglycerin sublingual (NITROSTAT) 0.[address](1) TABLET UNDER TONGUE NEEDED FOR CHEST PAIN. IF NO PAIN RELIEF CALL 911 Disp: 25 tablet Rfl: 0 07/21/2017 at Unknown time losartan (COZAAR) 100 mg tablet Take 100 mg by mouth once daily. Disp: Rfl: 07/21/2017 at 0900 aspirin 81 mg chewable tablet Take 81 mg by mouth once daily. Disp: Rfl: 07/21/2017 at 0900 furosemide (LASIX) 20 mg tablet Take 40 mg by mouth once daily as needed. Disp: Rfl: 07/20/2017 at Unknown time acetaminophen (TYLENOL) 325 mg tablet Take 3 tablets by mouth every 6 hours. Disp: Rfl: isosorbide mononitrate ER (IMDUR) 60 mg 24 hr tablet Take 1 tablet by mouth once daily. Disp: 30 tablet Rfl: 0 Current hospital medications: enoxaparin 90 mg injection (LOVENOX) 1 mg/kg/dose SUBCUTANEOUS q 12 HR [START ON 07/23/2017] metoprolol succinate ER 200 mg tab(s) (TOPROL XL) 200 mg ORAL DAILY iv contrast (radiology procedure) INTRAVENOUS DIRECTED PRN gabapentin 600 mg cap(s) (NEURONTIN) 600 mg ORAL AT BEDTIME pravastatin 40 mg tab(s) (PRAVACHOL) 40 mg ORAL AT BEDTIME losartan 100 mg tab(s) (COZAAR) 100 mg ORAL DAILY QUEtiapine 400 mg tab(s) (SEROquel) 400 mg ORAL AT BEDTIME tamsulosin ER 0.4 mg cap(s) (FLOMAX) 0.4 mg ORAL DAILY aspirin 81 mg chewable tab(s) 81 mg ORAL DAILY cyclobenzaprine 10 mg tab(s) (FLEXERIL) 10 mg ORAL AT BEDTIME isosorbide mononitrate ER 60 mg tab(s) (IMDUR) 60 mg ORAL DAILY nitroglycerin sublingual 0.4 mg tab(s) (NITROQUICK) 0.4 mg SUBLINGUAL q 15 MIN PRN amLODIPine 10 mg tab(s) (NORVASC) 10 mg ORAL DAILY 0.9% NaCl 3-5 mL 3-5 mL INTRAVENOUS q 12 H 0.9% NaCl 2-10 mL 2-10 mL INTRAVENOUS q 12 H oxyCODONE-acetaminophen 5-325 mg 2 tablet (PERCOCET) 2 tablet ORAL q 4 H PRN ALLERGIES Allergen Reactions - Altaseptic Unknown - Crestor [Rosuvastat* Myalgia - Hctz [Amiloride-Hyd* Swelling - Other [place]-3s Unknown brelinta - Ramipril Swelling - Simvastatin Myalgia - Voltaren [Diclofena* Unknown COMPLETE REVIEW OF SYSTEMS: PAIN ASSESSMENT: CURRENTLY HAVING PAIN; see HPI GENERAL: No weight loss, malaise or fevers HEENT: Negative for frequent or significant headaches, No changes in hearing or vision, no nose bleeds or other nasal problems NECK: Negative for lumps, goiter, pain and significant neck swelling RESPIRATORY: See HPI CARDIOVASCULAR: See HPI GI: See HPI : No history of dysuria, frequency or incontinence MUSCULOSKELETAL: Negative for joint pain or swelling, back pain or muscle pain SKIN: Negative for lesions, rash, and itching PSYCH: Negative for sleep disturbance, mood disorder and recent psychosocial stressors HEMATOLOGY/LYMPHOLOGY: Negative for prolonged bleeding, bruising easily or swollen nodes ENDOCRINE: Negative for cold or heat intolerance, polyuria, polydipsia and goiter NEURO: No history of headaches, syncope, paralysis, seizures or tremors Objective PHYSICAL EXAM: GENERAL: Alert, no distress, cooperative, Obese SKIN: Skin color, texture, turgor normal. No rashes or lesions. LUNGS: Lungs clear to auscultation, Good diaphragmatic excursion CARDIAC: HDS ABDOMEN: S, ND, Mildly TTP diffusely, multiple surgical scars, Prolapsing Right-sided Loop colostomy with parastomal hernia both easily reducible EXTREMITIES: Extremities normal, no deformities, edema, clubbing or skin discoloration. Good capillary refill., No ulcers NEURO: Grossly normal cognition, motor function, and cranial nerves III-XII PULSES: 2+ radial, 2+ posterial tibial, 2+ dorsalis pedis The remainder of the physical exam is noncontributory. BP 115/55 Pulse 75 Temp 36.8 ?C (98.2 ?F) (Oral) Resp 18 Ht 172.7 cm (5' 7.99) Wt 90.7 kg (200 lb) SpO2 93% BMI 30.42 kg/m2 Body mass index is 30.42 kg/(m2). DATA: Diagnostic tests reviewed for today's visit: CBC, Coags, BMP, Mg, Phos Recent Labs 07/22/17 1025 07/21/17 1535 WBC 8.16 11.28* HB 13.0* 14.2 HCT 40.2 41.6 PLT 280 323 INR -- 1.07 NA 140 138 K 3.9 3.2* CHLOR 108* 102 CO2 26 29 BUN 21* 15 CREAT 0.87 0.75 GLUC 131* 108* CA 9.0 9.5 MG 2.1 -- P 2.8 -- Liver Function, Amylase, AND Lipase Recent Labs 07/21/17 1535 TPROT 7.9 ALB 3.9 ALT 18 AST 21 ALKPHOS 85 TBILI 0.3 LACT 1.4 Cardiac Enzymes IMAGING: CT ABD/PEL W IVCON Final Result IMPRESSION: ? 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 ?There is a parastomal hernia containing a loop of small bowel similar to the previous CT. ? There is a hernia through the central aspect of the left hemidiaphragm containing fat and a portion of the fundus of the stomach. ? ? There is a 2.7 cm low-attenuation lesion in the mid left kidney measuring greater than fluid density. ?This could represent a complicated cyst or solid renal mass. ?Further characterization with renal ultrasound or renal mass protocol CT is recommended. ?This could be performed on a nonemergent basis. 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 Camargo SIGNATURE: Isaias Tyson MD PATIENT NAME: Maxx Knott DATE: July 22, 2017 TIME: 9:02 PM PAGER/CONTACT #: [phone] HEMOGRAM/DIFF Collected: 07/22/2017 Status: F Source: [facility] 10:25 AM HEALTH SYSTEM REPOSITORY TYPE CODE TESTS RESULT OUT OF REFERENCE UNITS RANGE LAB WBC(LOINC) 4.23-9.07 thou/cmm WBC 8.16 LAB RBC(LOINC) 4.63-6.08 mil/cmm Low RBC 4.20 LAB HGB(LOINC) 13.7-17.5 g/dL Low Hgb 13.0 LAB HCT(LOINC) 40.1-51.0 % Hct 40.2 LAB MCV(LOINC) 83.2-95.6 fl MCV High 95.7 LAB MCH(LOINC) 25.7-32.2 pg MCH 31.0 LAB MCHC(LOINC 32.3-36.5 % ) MCHC 32.3 LAB RDW(LOINC) 11.6-14.4 % RDW High 15.2 LAB RDWSD(LOIN 36.1-45.8 fl C) RDW SD High 53.2 LAB PLT(LOINC) 141-365 thou/cmm Platelet 280 LAB MPV(LOINC) 8.7-12.0 fl MPV 10.7 LAB SEG(LOINC) % Seg Neutrophil 60.0 LAB IGRE(LOINC % ) Immature Grans 0.40 LAB LYMPH(LOIN % C) Lymphocyte 28.1 LAB MNO(LOINC) % Monocyte 8.2 LAB EOSIN(LOIN % C) Eosinophil 2.8 LAB BASO(LOINC % ) Basophil 0.5 LAB SEGN(LOINC 1.78-5.38 thou/cmm ) Abs. Neut 4.90 LAB IGAB(LOINC 0.00-0.05 thou/cmm ) Abs Immature Grans 0.03 LAB LYMN(LOINC 0.84-2.85 thou/cmm ) Abs. Lymph 2.29 LAB MONON(LOIN 0.30-0.82 thou/cmm C) Abs. [place] 0.67 LAB EOSN(LOINC 0.04-0.54 thou/cmm ) Abs. Eosin 0.23 LAB BASON(LOIN 0.01-0.08 thou/cmm C) Abs. Baso 0.04 Performed By: #### CBCD1 #### [place] [address] BASIC PANEL Collected: 07/22/2017 Status: F Source: [facility] 10:25 AM HEALTH SYSTEM REPOSITORY TYPE CODE TESTS RESULT OUT OF REFERENCE UNITS RANGE LAB NA(LOINC) 136-145 mEq/L Sodium Blood 140 LAB K(LOINC) 3.5-5.1 mEq/L Potassium Blood 3.9 LAB CL(LOINC) 98-107 mEq/L Chloride High Blood 108 LAB CO2(LOINC) 21-32 mEq/L CO2 Blood 26 LAB GLU(LOINC) 70-99 mg/dL Glucose High Blood 131 LAB BUN(LOINC) 7-18 mg/dL BUN High Blood 21 LAB CREA(LOINC 0.67-1.17 mg/dL ) Creatinine Blood 0.87 LAB CA(LOINC) 8.5-10.1 mg/dL Calcium Blood 9.0 LAB ANGAP(LOIN 8-16 C) Anion Gap 10 Performed By: #### P8 #### [address] [place], [place] [address] MAGNESIUM BLOOD Collected: 07/22/2017 Status: F Source: [facility] 10:25 AM HEALTH SYSTEM REPOSITORY TYPE CODE TESTS RESULT OUT OF REFERENCE UNITS RANGE LAB MAG(LOINC) 1.6-2.6 mg/dL Magnesium Blood 2.1 Performed By: #### MAG #### [place] [address] PHOSPHORUS BLOOD Collected: 07/22/2017 Status: F Source: [facility] 10:25 AM HEALTH SYSTEM REPOSITORY TYPE CODE TESTS RESULT OUT OF REFERENCE UNITS RANGE LAB PHOS(LOINC 2.5-4.9 mg/dL ) Phosphorus Blood 2.8 Performed By: #### PHOS #### [place] [address] MDRD GFR Collected: 07/22/2017 Status: F Source: [facility] 10:25 AM HEALTH SYSTEM REPOSITORY TYPE CODE TESTS RESULT OUT OF RANGE REFERENCE UNITS LAB GFRFN(LOINC >60mL/min/1.73m ) 2 eGFR >60 Result Comment: If the patient is , multiply the result by 1.210. Performed By: #### GFR #### [place] [address] TROPONIN I Collected: 07/22/2017 Status: F Source: [facility] 10:25 AM HEALTH SYSTEM REPOSITORY TYPE CODE TESTS RESULT OUT OF REFERENCE UNITS RANGE LAB TROP(LOINC) 0.015-0.045 ng/ml Troponin I 0.017 Performed By: #### TROP #### [place] [address] HISTORY PHYSICAL Observed: 07/22/2017 Status: COMPLETED Source: [place] 9:25 AM CLINIC OTHER CAMPUS REPOSITORY O ID: [id number] Author: Gene Mejía Service: Clinical Cardiology Author Type: Physician Type: HANDP Filed: 07/22/2017 9:44 AM Note Text: CARDIOLOGY CONSULT NOTE SERVICE DATE: 07/22/2017 SERVICE TIME: 9:25 AM CONSULTING PHYSICIAN: Gene Mejía MD PCP: Bijan Perez MD ATTENDING: Jevon Moreland REASON FOR CONSULT: Chest Pain CHIEF COMPLAINT: Abdominal pain, unspecified abdominal location [R10.9] HPI:Cardiac consultation at the request of . Mr. Knott is a 67 year old male who is seen today for chest pain. He has a history of Elevated Blood Pressure, coronary artery disease, SP CABG X 3 (RHODES-LAD, SVG- RCA, OM3) around 2001 at the [facility]. A repeat cardiac cath in 2005 showed that the SVG- OM3 was occluded, but the other two grafts were patent. He was admitted to [facility] with chief complaints of abdominal pain (at the site of his colostomy), after tripping, and falling on his belly. While he was in the ER for this complaint, he developed chest pain. He described the pain as a tightness 3/10 in intensity in the retrosternal region without radiation to the neck, left arm, jaw. It was relieved with nitroglycerin. On further questioning, he admitted that this is associated with Shortness of Breath. In terms of cardiac workup, he underwent a nuclear stress test In 05/17, and this was negative for inducible ischemia. Additionally, it looks like he also had a cardiac cath by Dr Cordell Morel at in 02/13, which revealed non occlusive CAD. No comments were made about the bypass grafts. His charts did mention occlusion of the SVG-OM3 as described above, based on a LHC from 2005 at [place]. 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 - Peritonitis ([facility]) PAST SURGICAL HISTORY Procedure Laterality Date - APPENDECTOMY HX - COLON SURGERY HX 07/2016 [facility] - HEART SURGERY HX triple bypass 10 yrs ago SOCIAL HISTORY Social History Substance Use Topics - Smoking status: Current Every Day Smoker Packs/day: 0.50 Years: 35.00 Types: Pipe, Cigarettes - Smokeless tobacco: Never Used Comment: Quit cigarettes 11-16-16 now smoking 4 pipes as of 04-18-17 - Alcohol use No FAMILY HISTORY Problem Relation Age of Onset - Coronary Artery Disease Father - Hyperlipidemia Father ALLERGIES: ALLERGIES Allergen Reactions - Altaseptic Unknown - Crestor [Rosuvastat* Myalgia - Hctz [Amiloride-Hyd* Swelling - Other [place]-3s Unknown brelinta - Ramipril Swelling - Simvastatin Myalgia - Voltaren [Diclofena* Unknown MEDICATIONS: loratadine 10 mg cap Take 1 capsule every day by oral route. tamsulosin ER (FLOMAX) 0.4 mg cp24 Take 1 capsule every day by oral route. oxyCODONE-acetaminophen (PERCOCET 10) 10-325 mg tablet TK 1 T PO BID PRN AMLODIPINE BESYLATE (AMLODIPINE ORAL) Take 10 mg by mouth once daily. pravastatin (PRAVACHOL) 40 mg tablet Take 40 mg by mouth daily at bedtime. cyclobenzaprine (FLEXERIL) 10 mg tablet Take 1 tablet by mouth daily at bedtime. gabapentin (NEURONTIN) 300 mg capsule Take 2 capsules by mouth daily at bedtime for 90 days. metoprolol succinate ER (TOPROL XL) 100 mg Tb24 Take 1 tablet by mouth once daily. QUEtiapine (SEROQUEL) 200 mg tablet Take 2 tablets by mouth daily at bedtime. COMPOUNDED PRESCRIPTION One Piece Ostomy Pouch Item Type: Coloplast Sensura One Piece Non-Sterile with Window 3/8-4 1/2'' ?5/BoxICD 10: Prolapsed Stoma K94.09 COMPOUNDED PRESCRIPTION Paste: Convatec Stomahesive 1 tubeICD 10: Prolapsed Stoma K 94.09 MULTIVIT WITH IRON,MINERALS (MULTIVITAMIN AND MINERALS ORAL) Take 1 capsule by mouth. albuterol HFA (PROVENTIL HFA, VENTOLIN HFA) 90 mcg/actuation inhaler Inhale as instructed. fluticasone (FLONASE) 50 mcg/actuation nasal spray Use in the nose. nitroglycerin sublingual (NITROSTAT) 0.[address] ONE(1) TABLET UNDER TONGUE NEEDED FOR CHEST PAIN. IF NO PAIN RELIEF CALL 911 losartan (COZAAR) 100 mg tablet Take 100 mg by mouth once daily. aspirin 81 mg chewable tablet Take 81 mg by mouth once daily. furosemide (LASIX) 20 mg tablet Take 40 mg by mouth once daily as needed. acetaminophen (TYLENOL) 325 mg tablet Take 3 tablets by mouth every 6 hours. isosorbide mononitrate ER (IMDUR) 60 mg 24 hr tablet Take 1 tablet by mouth once daily. REVIEW OF SYSTEMS: GENERAL: Negative for:Weight loss and Weight gain HEENT: Negative for:Nosebleeds RESPIRATORY: Negative for:Shortness of breath (except for some dyspnea with CP; see HPI) GASTROINTESTINAL: Negative for:Blood in stool MUSCULOSKELETAL: Negtive for: Muscle or joint pain, stiffness, Joint swelling SKIN: No rash HEMATOLOGICAL/LYMPHATIC: Negative for: Easy bruising and Easy bleeding CARDIOVASCULAR: As stated in HPI. 10 system review negative except as stated in HPI PHYSICAL EXAMINATION: BP 165/76 Pulse 82 Temp (Src) 97.2 (Oral) Resp 18 Ht 5' 7.992 (1.73m) Wt 200 lb (90.7kg) SpO2 92% BMI 30.42 kg/(m2). General: Well appearing, in no acute distress, speaking in complete sentences., Well appearing. Psych: Normal Affect Eyes: No subconjunctival hemorrhage Skin: No rash, bruising Oropharynx: Mucous membranes normal Neck: no jugular venous distention, no carotid bruits. Lymph: No cervical lymphadenopathy Lungs: Clear to auscultation bilaterally, no wheezing or rhonchi. Heart: S1, S2 normal, no murmur Extremities: No peripheral edema Neuro: Grossly nonfocal LABS: 12 lead EKG 07/21/17 19:03: Normal sinus rhythm, Incomplete right bundle branch block and Nonspecific St-T wave changes. Old inferior infarction. QTc 588 msec per computer calculation (when I reviewed the EKG, I thought that the interval was normal). Past 72 Hour Labs: Recent Labs 07/22/17 0015 07/21/17 1535 TROPI 0.023 -- WBC -- 11.28* RBC -- 4.53* HB -- 14.2 HCT -- 41.6 MCV -- 91.8 MCH -- 31.3 MCHC -- 34.1 PLT -- 323 MPV -- 10.5 GLUC -- 108* BUN -- 15 CREAT -- 0.75 NA -- 138 K -- 3.2* CHLOR -- 102 CO2 -- 29 TPROT -- 7.9 ALB -- 3.9 CA -- 9.5 ALKPHOS -- 85 TBILI -- 0.3 AST -- 21 ALT -- 18 PTSEC -- 11.2 INR -- 1.07 Last Lab Drawn: Triglyceride 100 10/02/2016 HDL Cholesterol 37 10/02/2016 LDL Calculated 125 10/02/2016 Cholesterol, Total 182 10/02/2016 Impression/Recommendations Active Problems: Chest pain : POA Assessment and plan: As described above, the character of the pain is atypical, since it occurred at rest, but it did respond some to NTG.The patient's pretest probability is intermediate to high given his previous H/O CABG. I have reviewed the patient's prior workup including his nuclear stress test that was negative for inducible ischemia. I suggest medical observation only. Any further recommendations will depend upon the patient's test results and clinical course. Chronic systolic congestive heart failure (HCC) POA: Yes Assessment AND Plan: LVEF about 47% based on his last echo CAD (coronary artery disease) POA: Yes Assessment AND Plan: Continue Med Rx with ASA, Pravastain, Metoprolol, Norvasc Diverticulitis of sigmoid colon POA: Yes Assessment AND Plan: SP colostomy. Management per primary team Abdominal aortic aneurysm without rupture (HCC) POA: Yes Assessment AND Plan: Stable at present. Needs better BP control. On maximal doses of Losartan, Norvasc. Increase Toprol XL to 200 mg daily Essential hypertension POA: Yes Assessment AND Plan: see above for med adjustment Resolved Problems: * No resolved hospital problems. * SIGNATURE: Gene Mejía MD PATIENT NAME: Maxx Knott DATE: July 22, 2017 TIME: 9:25 AM PAGER/CONTACT #: [phone] TROPONIN I Collected: 07/22/2017 Status: F Source: [facility] 12:15 AM HEALTH SYSTEM REPOSITORY TYPE CODE TESTS RESULT OUT OF REFERENCE UNITS RANGE LAB TROP(LOINC) 0.015-0.045 ng/ml Troponin I 0.023 Performed By: #### TROP #### [facility] [address] [place] [address] HISTORY PHYSICAL Observed: 07/21/2017 Status: COMPLETED Source: [place] 11:32 PM CLINIC OTHER CAMPUS REPOSITORY HNO ID: [id number] Author: Nithya Thayer MD Service: Hospital Medicine Author Type: Physician Type: HANDP Filed: 07/22/2017 12:00 AM Note Text: DEPARTMENT OF HOSPITAL MEDICINE HISTORY AND PHYSICAL EXAM SERVICE DATE: 07/21/2017 SERVICE TIME: 11.00pm Primary Care Physician: Bijan Perez MD NIGHT AND WEEKEND COVERAGE: Days: [phone], please page me for patient issues. Nights: [phone], please page [facility] Night coverage pager [phone] Subjective CHIEF COMPLAINT: Chest pain HPI: This is a 67 year old male who presents with pain at colostomy site after tripping and falling on his belly and with subsequent increase in protrusion of stoma. While in the ED started had substernal chest pain and pressure which improved slightly with nitroglycerine. Stile having the chest pain. Had some nausea, denies SOB. 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 - Peritonitis ([facility]) PAST SURGICAL HISTORY Procedure Laterality Date - APPENDECTOMY HX - COLON SURGERY HX 07/2016 [facility] - HEART SURGERY HX triple bypass 10 yrs ago FAMILY HISTORY Problem Relation Age of Onset - Coronary Artery Disease Father - Hyperlipidemia Father Social History Substance Use Topics - Smoking status: Current Every Day Smoker Packs/day: 0.50 Years: 35.00 Types: Pipe, Cigarettes - Smokeless tobacco: Never Used Comment: Quit cigarettes 11-16-16 now smoking 4 pipes as of 04-18-17 - Alcohol use No MEDICATIONS: Reviewed Prescriptions Prior to Admission: loratadine 10 mg cap Take 1 capsule every day by oral route. Disp: Rfl: Past Week at 0900 tamsulosin ER (FLOMAX) 0.4 mg cp24 Take 1 capsule every day by oral route. Disp: Rfl: 07/20/2017 at Unknown time oxyCODONE-acetaminophen (PERCOCET 10) 10-325 mg tablet TK 1 T PO BID PRN Disp: Rfl: 07/20/2017 at 0900 AMLODIPINE BESYLATE (AMLODIPINE ORAL) Take 10 mg by mouth once daily. Disp: Rfl: 07/21/2017 at 0900 pravastatin (PRAVACHOL) 40 mg tablet Take 40 mg by mouth daily at bedtime. Disp: Rfl: 07/20/2017 at 2100 cyclobenzaprine (FLEXERIL) 10 mg tablet Take 1 tablet by mouth daily at bedtime. Disp: 90 tablet Rfl: 0 07/20/2017 at 2100 gabapentin (NEURONTIN) 300 mg capsule Take 2 capsules by mouth daily at bedtime for 90 days. Disp: 90 capsule Rfl: 0 05/15/2017 at Unknown time metoprolol succinate ER (TOPROL XL) 100 mg Tb24 Take 1 tablet by mouth once daily. Disp: 90 tablet Rfl: 4 07/21/2017 at 0900 QUEtiapine (SEROQUEL) 200 mg tablet Take 2 tablets by mouth daily at bedtime. Disp: 60 tablet Rfl: 0 07/21/2017 at 2100 COMPOUNDED PRESCRIPTION One Piece Ostomy Pouch Item Type: Coloplast Sensura One Piece Non-Sterile with Window 07/05-05/01'' ?5/BoxICD 10: Prolapsed Stoma K94.09 Disp: 1 Box Rfl: 0 05/13/2017 COMPOUNDED PRESCRIPTION Paste: Convatec Stomahesive 1 tubeICD 10: Prolapsed Stoma K 94.09 Disp: 1 Tube Rfl: 0 05/13/2017 MULTIVIT WITH IRON,MINERALS (MULTIVITAMIN AND MINERALS ORAL) Take 1 capsule by mouth. Disp: Rfl: 07/21/2017 at 0900 albuterol HFA (PROVENTIL HFA, VENTOLIN HFA) 90 mcg/actuation inhaler Inhale as instructed. Disp: Rfl: 05/13/2017 fluticasone (FLONASE) 50 mcg/actuation nasal spray Use in the nose. Disp: Rfl: 07/21/2017 at 0900 nitroglycerin sublingual (NITROSTAT) 0.[address] ONE(1) TABLET UNDER TONGUE NEEDED FOR CHEST PAIN. IF NO PAIN RELIEF CALL 911 Disp: 25 tablet Rfl: 0 07/21/2017 at Unknown time losartan (COZAAR) 100 mg tablet Take 100 mg by mouth once daily. Disp: Rfl: 07/21/2017 at 0900 aspirin 81 mg chewable tablet Take 81 mg by mouth once daily. Disp: Rfl: 07/21/2017 at 0900 furosemide (LASIX) 20 mg tablet Take 40 mg by mouth once daily as needed. Disp: Rfl: 07/20/2017 at Unknown time acetaminophen (TYLENOL) 325 mg tablet Take 3 tablets by mouth every 6 hours. Disp: Rfl: isosorbide mononitrate ER (IMDUR) 60 mg 24 hr tablet Take 1 tablet by mouth once daily. Disp: 30 tablet Rfl: 0 ALLERGIES Allergen Reactions - Altaseptic Unknown - Crestor [Rosuvastat* Myalgia - Hctz [Amiloride-Hyd* Swelling - Other [place]-3s Unknown brelinta - Ramipril Swelling - Simvastatin Myalgia - Voltaren [Diclofena* Unknown REVIEW OF SYSTEM: no leg swelling or SOB and rest of ROS is negative Objective PHYSICAL EXAM: BP 185/94 Pulse 77 Temp (Src) 99.3 (Oral) Resp 16 Ht 5' 7.992 (1.73m) Wt 200 lb (90.7kg) SpO2 94% BMI 30.42 kg/(m2). Physical Exam Performed: GENERAL: Alert, no distress, cooperative SKIN: Skin color, texture, turgor normal. No rashes or lesions. HEAD/SINUSES: No significant findings EYES: PERRLA, EOMI NOSE: Nares normal. Septum midline. NECK: No jugulovenous distention, No carotid bruits, Carotid pulse normal contour, Supple BACK: Back symmetric, Normal curvature, ROM normal, No CVAT. LUNGS: Lungs clear to auscultation, Good diaphragmatic excursion and no chest wall tenderness, sternotomy scar noted CARDIAC: Normal S1 and S2; no rubs, murmurs, or gallops ABDOMEN: Abdomen soft, non-tender, BS normal, No masses or organomegaly EXTREMITIES: Extremities normal, no deformities, edema, clubbing or skin discoloration. Good capillary refill., No ulcers NEURO: Gait normal. Reflexes normal and symmetric. Sensation grossly intact, Cranial nerves II-XII intact The remainder of the physical exam is noncontributory. Lines, Drains, and Airways Line Peripheral Double Lumen 03/24/18 1400 Left Antecubital 20 Gauge less than 1 day none DATA: Diagnostic tests reviewed for today's visit: Most recent labs and imaging results. Assessment/Plan 1. Chest pain in patient with significant CAD and s/p CABG. ? Unstable angina. Will cycle troponins, therapeutic Lovenox and continue ASA and statin Consult cardiology 2. Mechanical fall 3. Pain at colostomy site from blunt trauma. Improving 4. Code status. Discussed with patient and is DNRCCA VTE Prophylaxis: Lovenox 40mg Sub Q Daily Disposition: Home Plan of care discussed with: Patient SIGNATURE: Nithya Thayer MD PATIENT NAME: Maxx Knott DATE: July 21, 2017 TIME: 11:32 PM PAGER/CONTACT #: cc [phone] [phone] ED NOTE Observed: 07/21/2017 Status: COMPLETED Source: [place] 7:46 PM CLINIC OTHER CAMPUS REPOSITORY HNO ID: [id number] Author: Yue KingRn) MITCHELL Gaspar Service: Emergency Medicine Author Type: Registered Nurse Type: ED Notes Filed: 07/21/2017 7:47 PM Note Text: Pt requesting pain medications. Dr Rizvi aware [facility] TROPONIN I Collected: 07/21/2017 Status: F Source: [facility] 7:35 PM HEALTH SYSTEM REPOSITORY TYPE CODE TESTS RESULT OUT OF REFERENCE UNITS RANGE LAB ERTRP(LOINC 0.015-0.045 ng/ml ) [facility] Troponin I 0.028 Performed By: #### ERTRP #### [facility] [address] [place] [address] CHEST 2 VIEWS Observed: 07/21/2017 Status: F Source: [employer] [facility] 5:59 PM HEALTH SYSTEM REPOSITORY Performed at [facility] APPROVED BY: Bubba Hemphill MD EXAMINATION: CHEST RADIOGRAPH (2 VIEW FRONTAL & LATERAL) Clinical History: Chest pain MQ: XC2_4 Comparison: 07/06/2017 RESULT: Lines, tubes, and devices: Pacemaker and bipolar leads Lungs and pleura: No consolidation. No lung mass. No pleural effusion. Cardiomediastinal silhouette: Normal cardiomediastinal silhouette. Other: Eventration posterior left side hemidiaphragm, unchanged and correlates with a diaphragmatic hernia IMPRESSION: No acute interval change. See discussion above. CT ABDOMEN AND PELVIS Observed: 07/21/2017 Status: F Source: [facility] WITH CONTRAST 5:59 PM HEALTH SYSTEM REPOSITORY Performed at [facility] APPROVED BY: Cherise Cedeño MD EXAMINATION: CT ABDOMEN AND PELVIS WITH IV CONTRAST CLINICAL HISTORY: Fall, stoma protruding after fall TECHNIQUE: CT of the abdomen and pelvis was performed using standard technique, scanning from just above the dome of the diaphragm to the symphysis pubis. Sagittal and coronal reconstructions were performed. M: CTAP_3 Contrast: 150 mL Omnipaque 300 IV Contrast oral: None CT Dose-Length Product: 611.97 mGy*cm CT Dose Reduction Employed: 1. Automated exposure control (AEC) was used. COMPARISON: CT abdomen and pelvis 07/06/2017 RESULT: Lower thorax: Pacemaker leads are present in the right atrium and right ventricle. There is a hernia through the central aspect of the left hemidiaphragm with herniation of fat and a portion of the gas tric fundus into the thorax. Liver: No mass. Normal hepatic morphology. Biliary: No bile duct dilation. Gallbladder is unremarkable. Spleen: No mass. No splenomegaly. Pancreas: No mass or duct dilation. Adrenals: Nodular thickening of the left adrenal gland stable since 09/20/2016 right adrenal gland is unremarkable. Kidneys: No hydronephrosis. There is a 2.7 cm lesion in the mid left kidney which measures greater than fluid density this could represent a complicated cyst or solid renal mass. This has slightly inc reased in size when compared with the prior CT from 09/20/2016. There are subcentimeter cysts in both kidneys. GI tract: There are no dilated loops of large or small bowel. 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 The mucous fistula appears to protrude however through the ostomy site . There is also a loop of small bowel herniating into the stoma. There are multiple diverticula throughout the colon. Lymph nodes: No abdominal or pelvic lymphadenopathy. Mesentery/Peritoneum: No ascites or mass. Retroperitoneum: No mass. Vasculature: The celiac axis and SMA are patent. The portal vein and branches, splenic vein, SMV, and hepatic veins are patent. No abdominal aortic or iliac artery aneurysm. Pelvis: No mass, ascites or fluid collection. Bones/Soft Tissues: There are degenerative changes in the lumbar spine. 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 There is a parastomal hernia containing a loop of small bowel similar to the previous CT. There is a hernia through the central aspect of the left hemidiaphragm containing fat and a portion of the fundus of the stomach. There is a 2.7 cm low-attenuation lesion in the mid left kidney measuring greater than fluid density. This could represent a complicated cyst or solid renal mass. Further characterization with renal u ltrasound or renal mass protocol CT is recommended. This could be performed on a nonemergent basis. ED NOTE Observed: 07/21/2017 Status: COMPLETED Source: [place] 4:49 PM [facility] REPOSITORY HNO ID: [id number] Author: Yue KingRn) Hubert RN Service: Emergency Medicine Author Type: Registered Nurse Type: ED Notes Filed: 07/21/2017 4:49 PM Note Text: Transport aware of CT and CXR; ticket to ride filled out ED NOTE Observed: 07/21/2017 Status: COMPLETED Source: [place] 4:43 PM [facility] REPOSITORY HNO ID: [id number] Author: Yue KingRn) Hubert RN Service: Emergency Medicine Author Type: Registered Nurse Type: ED Notes Filed: 07/21/2017 4:43 PM Note Text: Stoma reduced by Dr Rizvi and Dr Zheng. Site cleaned with normal saline and bag reapplied. ED NOTE Observed: 07/21/2017 Status: COMPLETED Source: [place] 4:08 PM [facility] REPOSITORY HNO ID: [id number] Author: Yue Toth) Hubert, RN Service: Emergency Medicine Author Type: Registered Nurse Type: ED Notes Filed: 07/21/2017 4:09 PM Note Text: Sugar and Lidocaine at bedside per order. Dr Rizvi and Dr Zheng at bedside ED PROV NOTE Observed: 07/21/2017 Status: COMPLETED Source: [place] 3:50 PM [facility] REPOSITORY HNO ID: [id number] Author: Ratna Hay MD Service: Emergency Medicine Author Type: Physician Type: ED Provider Notes Filed: 07/27/2017 10:32 AM Note Text: ED Provider Note Patient Name: Maxx Knott SERVICE DATE: 07/21/17 History Patient presents with: Fall: 1 hour before arrival. Pt tripped on the carpet by his bed pt fell forward onto ostomy stoma + protrusion of stoma it is usually the size of a half dollar. stoma is now the size of a grapefruit. + nausea + hit head - LOC. + headache slight in front of head where he hit it. - blood thinners. + SOB + Chest tight ness. HPI 67 year old male with past medical history of cherry pouch 2/2 ruptured diverticulitis, CABG, ACS presenting after a fall. Did not hit head, no LOSS OF CONSCIOUSNESS , no blood thinners. Did land on on ostomy and abdomen. Has hx of large ostomy site with reductions and ostomy is now prolapsed. No bleeding per patient but complains of pain to site and LLQ with chest pressure that is different from his CABG surgical site pain. Has associated shortness of breath. Denies N/V. Per triage note, patient complaining of headache and hitting his head. He denies this upon questioning and states he landed on his abdomen and chest. 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 - Peritonitis ([facility]) PAST SURGICAL HISTORY Procedure Laterality Date - APPENDECTOMY HX - COLOSTOMY 07/2016 Diverting Loop Colostomy of the Transverse Colon - HEART SURGERY HX triple bypass 10 yrs ago - PPM IMPLANT - STENT - CORONARY FAMILY HISTORY Problem Relation Age of Onset - Coronary Artery Disease Father - Hyperlipidemia Father Social History Social History Main Topics - Smoking status: Current Every Day Smoker Packs/day: 0.50 Years: 35.00 Types: Pipe, Cigarettes - Smokeless tobacco: Never Used Comment: Quit cigarettes 11-16-16 now smoking 4 pipes as of 04-18-17 - Alcohol use No - Drug use: No - Sexual activity: Not Currently ALLERGIES Allergen Reactions - Altaseptic Unknown - Crestor [Rosuvastat* Myalgia - Hctz [Amiloride-Hyd* Swelling - Other [place]-3s Unknown brelinta - Ramipril Swelling - Simvastatin Myalgia - Voltaren [Diclofena* Unknown Review of Systems Constitutional: Negative for chills, diaphoresis and fever. HENT: Negative for drooling, trouble swallowing and voice change. Eyes: Negative for photophobia, pain, redness and visual disturbance. Respiratory: Positive for chest tightness and shortness of breath. Negative for choking. Cardiovascular: Positive for chest pain. Negative for palpitations and leg swelling. Gastrointestinal: Positive for abdominal pain. Negative for diarrhea, nausea and vomiting. Endocrine: Negative for cold intolerance, heat intolerance, polydipsia, polyphagia and polyuria. Genitourinary: Negative for difficulty urinating, dysuria, flank pain, frequency, hematuria and urgency. Musculoskeletal: Negative for back pain, gait problem, neck pain and neck stiffness. Skin: Negative for rash and wound. Neurological: Negative for dizziness, seizures, syncope, speech difficulty, light-headedness, numbness and headaches. Physical Exam BP 138/70 Pulse 77 Temp (Src) 97.7 (Oral) Resp 18 Ht 5' 7.992 (1.73m) Wt 200 lb (90.7kg) SpO2 93% BMI 30.42 kg/(m2). Physical Exam Constitutional: He is oriented to person, place, and time. He appears well-developed and well-nourished. He appears distressed. HENT: Head: Normocephalic and atraumatic. Right Ear: External ear normal. Left Ear: External ear normal. Mouth/Throat: Oropharynx is clear and moist. No oropharyngeal exudate. Eyes: Conjunctivae and EOM are normal. Pupils are equal, round, and reactive to light. Right eye exhibits no discharge. Left eye exhibits no discharge. Neck: Normal range of motion. Neck supple. No JVD present. No tracheal deviation present. Cardiovascular: Normal rate, regular rhythm, normal heart sounds and intact distal pulses. Exam reveals no gallop and no friction rub. No murmur heard. Pulmonary/Chest: Effort normal and breath sounds normal. No stridor. No respiratory distress. He has no wheezes. He exhibits no tenderness. Abdominal: Soft. Bowel sounds are normal. He exhibits no distension. There is tenderness ( ostomy site and LLQ). There is no rebound and no guarding. Ostomy site is prolapsed about the size of a grapefruit. No active bleeding or color changes. Musculoskeletal: Normal range of motion. He exhibits no edema or deformity. Neurological: He is alert and oriented to person, place, and time. No cranial nerve deficit. Skin: Skin is warm and dry. No rash noted. He is not diaphoretic. No erythema. Nursing note and vitals reviewed. Diagnostic Testing ED Labs Ordered and Reviewed CBC + AUTO DIFF (AK,AV,EU,FV,HL,DEMARCO,MM,SP) - Abnormal; Notable for the following: Result Value Ref Range WBC 11.28 (*) 4.23 - 9.07 thou/cmm RBC 4.53 (*) 4.63 - 6.08 mil/cmm RDW 14.7 (*) 11.6 - 14.4 % RDW-SD 50.1 (*) 36.1 - 45.8 fl Seg. Neut. # 8.75 (*) 1.78 - 5.38 thou/cmm All other components within normal limits COMPREHENSIVE METABOLIC PANEL (AK,AV,EU,FV,HL,DEMARCO,MM,SP) - Abnormal; Notable for the following: Potassium 3.2 (*) 3.5 - 5.1 mEq/L Glucose 108 (*) 70 - 99 mg/dL All other components within normal limits URINALYSIS WITH MICROSCOPIC (AK,AV,EU,FV,HL,DEMARCO,MM,SP) - Abnormal; Notable for the following: Hemoglobin, Urine SMALL (*) Negative RBC, Urine 9.0 (*) 0.0 - 5.0 /hpf All other components within normal limits PROTHROMBIN TIME / PT (AK,AV,EU,FV,HL,DEMARCO,MM,SP) ECU TROPONIN I ([facility] ED) LACTIC ACID / LACTATE (AK,AV,EU,FV,HL,DEMARCO,MM,SP) MDRD GFR ECU TROPONIN I ([facility] ED) Procedures Medical Decision Making / ED Course ED Course Maxx Knott is a 67 year old male that presents to the ED for evaluation of fall, chest pain, and ostomy prolapse . Vitals: stable. Physical exam as above. EKG was obtained. 2 troponins within normal limits. Patient given aspirin, and morphine for pain. Ostomy was reduced by myself and attending with no complications. CT scan shows no acute pathology. Not concerned for intracranial bleed at this time due to normal neuro exam and no pain. He did have increasing chest pressure, repeat EKG was obtained that was unchanged. He did respond to nitro. Concerned for acute pathology due to extensive cardiac hx and believe he would benefit from further evaluation. He does not currently have primary care physician and is not able to get into cardiology. Heart Score: >65 +2 Highly suspicious +2 Greater than or equal to 3 risk factors +2 Under normal limit +0 Normal +0 Total: 6 Encounter Diagnosis ICD-10-CM 1. Abdominal pain, unspecified abdominal location R10.9 2. Other chest pain R07.89 3. Coronary artery disease involving [place] coronary artery of [place] heart, angina presence unspecified I25.10 4. Essential hypertension I10 5. Abdominal aortic aneurysm without rupture (HCC) I71.4 TP Note: Patient was seen with RANDY/resident physician under my supervision and their notes/orders/patient care was directly modified by me if possible and as needed. Pt Present sscp that feels like milder than his mi. No heartburn, no pleurisy-unilat calf pain-prod cough. Also had a fall and hurt his abdomen with nausea. No major complaints elsewhere in body.. Nondiaphoretic. Nontoxic. Stable: NCAT. No angioedema, No drool. No nuchal rigidity. no cardiac rub. No insp stridor. Positive reducible ostomy. No peritoneal sign. No dhz-jyucbmcn-tzlkjbfmWj kaley.No phocomelia. No myonecrosis. No endocine goiter No generalized purpura. No FND. No lock-in syndrome paralysis. No cataplexy. Dx- [place] asa-ntg decreased his cp. ekg No stemi HS-6. Patient's PCP [place] out of state. 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 Patient is stable and was admitted then care of the patient was transferred to the inpatient team. Plan The Patient was ADM[facility]ED TO: [facility]. Condition at time of disposition: stable SIGNATURE: DO Jay Marshall ( DO Dmitri Resident 07/23/17 5077 Ratna Hay MD 07/27/17 1032 HEMOGRAM/DIFF Collected: 07/21/2017 Status: F Source: [facility] 3:35 PM HEALTH SYSTEM REPOSITORY TYPE CODE TESTS RESULT OUT OF REFERENCE UNITS RANGE LAB WBC(LOINC) 4.23-9.07 thou/cmm WBC High 11.28 LAB RBC(LOINC) 4.63-6.08 mil/cmm Low RBC 4.53 LAB HGB(LOINC) 13.7-17.5 g/dL Hgb 14.2 LAB HCT(LOINC) 40.1-51.0 % Hct 41.6 LAB MCV(LOINC) 83.2-95.6 fl MCV 91.8 LAB MCH(LOINC) 25.7-32.2 pg MCH 31.3 LAB MCHC(LOINC 32.3-36.5 % ) MCHC 34.1 LAB RDW(LOINC) 11.6-14.4 % RDW High 14.7 LAB RDWSD(LOIN 36.1-45.8 fl C) RDW SD High 50.1 LAB PLT(LOINC) 141-365 thou/cmm Platelet 323 LAB MPV(LOINC) 8.7-12.0 fl MPV 10.5 LAB SEG(LOINC) % Seg Neutrophil 77.6 LAB IGRE(LOINC % ) Immature Grans 0.40 LAB LYMPH(LOIN % C) Lymphocyte 14.8 LAB MNO(LOINC) % Monocyte 6.5 LAB EOSIN(LOIN % C) Eosinophil 0.4 LAB BASO(LOINC % ) Basophil 0.3 LAB SEGN(LOINC 1.78-5.38 thou/cmm ) Abs. High Neut 8.75 LAB IGAB(LOINC 0.00-0.05 thou/cmm ) Abs Immature Grans 0.05 LAB LYMN(LOINC 0.84-2.85 thou/cmm ) Abs. Lymph 1.67 LAB MONON(LOIN 0.30-0.82 thou/cmm C) Abs. [place] 0.73 LAB EOSN(LOINC 0.04-0.54 thou/cmm ) Abs. Eosin 0.05 LAB BASON(LOIN 0.01-0.08 thou/cmm C) Abs. Baso 0.03 Performed By: #### [id number] #### [facility] [address] [place] [address] PROTIME Collected: 07/21/2017 Status: F Source: [facility] 3:35 PM HEALTH SYSTEM REPOSITORY TYPE CODE TESTS RESULT OUT OF REFERENCE UNITS RANGE LAB PTI(LOINC) 9.3-11.9 sec Prothrombin Time 11.2 LAB INR(LOINC) INR 1.07 Result Comment: Standard Therapy 2.0-3.0 High Dose 2.5-3.5 Performed By: #### PT #### [facility] [address] [address] ECU TROPONIN I Collected: 07/21/2017 Status: F Source: [facility] 3:35 PM HEALTH SYSTEM REPOSITORY TYPE CODE TESTS RESULT OUT OF REFERENCE UNITS RANGE LAB ERTRP(LOINC 0.015-0.045 ng/ml ) ECU Troponin I 0.020 Performed By: #### ERTRP #### [place] [address] LACTIC ACID Collected: 07/21/2017 Status: F Source: [facility] 3:35 PM HEALTH SYSTEM REPOSITORY TYPE CODE TESTS RESULT OUT OF REFERENCE UNITS RANGE LAB LAC(LOINC) 0.4-2.0 mEq/L Lactic Acid 1.4 Performed By: #### LAC #### [place] [address] COMPREHENSIVE PANEL Collected: 07/21/2017 Status: F Source: [facility] 3:[facility] REPOSITORY TYPE CODE TESTS RESULT OUT OF REFERENCE UNITS RANGE LAB NA(LOINC) 136-145 mEq/L Sodium Blood 138 LAB K(LOINC) 3.5-5.1 mEq/L Low Potassium Blood 3.2 LAB CL(LOINC) 98-107 mEq/L Chloride Blood 102 LAB CO2(LOINC) 21-32 mEq/L CO2 Blood 29 LAB GLU(LOINC) 70-99 mg/dL Glucose High Blood 108 LAB BUN(LOINC) 7-18 mg/dL BUN Blood 15 LAB CREA(LOINC 0.67-1.17 mg/dL ) Creatinine Blood 0.75 LAB CA(LOINC) 8.5-10.1 mg/dL Calcium Blood 9.5 LAB ALB(LOINC) 3.4-5.0 g/dL Albumin Blood 3.9 LAB TP(LOINC) 6.4-8.2 g/dL Total Protein 7.9 LAB AST(LOINC) 9-37 U/L AST-SGOT Blood 21 LAB ALT(LOINC) 12-78 U/L ALT-SGPT Blood 18 LAB ALKP(LOINC 46-116 U/L ) Alk Phosphatase 85 LAB BILIT(LOIN 0.2-1.0 mg/dL C) Total Bilirubin 0.3 LAB ANGAP(LOIN 8-16 C) Anion Gap 10 Performed By: #### P14 #### [facility] [address] [address] MDRD GFR Collected: 07/21/2017 Status: F Source: [facility] 3:35 PM HEALTH SYSTEM REPOSITORY TYPE CODE TESTS RESULT OUT OF RANGE REFERENCE UNITS LAB GFRFN(LOINC >60mL/min/1.73m ) 2 eGFR >60 Result Comment: If the patient is , multiply the result by 1.210. Performed By: #### GFR #### [facility] [address] [address] URINALYSIS ROUTINE Collected: 07/21/2017 Status: F Source: [facility] 3:15 PM HEALTH SYSTEM REPOSITORY TYPE CODE TESTS RESULT OUT OF RANGE REFERENCE UNITS LAB COLOR(LOIN C) Urine Color YELLOW LAB APPUR(LOIN C) Urine Appearance CLEAR LAB GLUUR(LOIN Negative mg/dL C) Glucose Urine NEGATIVE LAB KETON(LOIN Negative mg/dL C) Ketone Urine NEGATIVE LAB HGBUR(LOIN Negative C) Abnormal Hemoglobin,Urin SMALL e LAB PROTU(LOIN Negative mg/dL C) Protein Urine NEGATIVE LAB NITRI(LOIN Negative C) Nitrites Urine NEGATIVE LAB BILIU(LOIN Negative C) Bilirubin Urine NEGATIVE LAB SPG(LOINC) 1.005-1.030 Specific 1.018 Morris, Ur LAB PHUR(LOINC 5.0-8.0 ) pH,Urine 6.5 LAB UROBI(LOIN 0.0-1.0 EU/dL C) Urobilinogen,Ur 1.0 LAB LEUKO(LOIN Negative C) Leukocytes NEGATIVE Esterase LAB RBCU1(LOIN 0.0-5.0 /hpf C) High RBC,Urine 9.0 LAB WBCU1(LOIN 0.0-5.0 /hpf C) WBC, Urine 0.6 LAB EPIT1(LOIN 0.0-5.0 /hpf C) Ep Cells Urine 0.4 LAB BACT1(LOIN None C) Bacteria Urine NONE LAB HYCA1(LOIN 0.0-1.0 /lpf C) Hyaline Cast 0.0 Performed By: #### URIN2 #### [facility] [address] [address] ED NOTE Observed: 07/21/2017 Status: COMPLETED Source: [place] 2:51 PM [facility] REPOSITORY HNO ID: [id number] Author: Herlinda KingRn) MITCHELL Del Real Service: (none) Author Type: Registered Nurse Type: ED Notes Filed: 07/21/2017 2:51 PM Note Text: Bed: ED-04 Expected date: Expected time: Means of arrival: Comments: triage ED NOTE Observed: 07/21/2017 Status: COMPLETED Source: [place] 2:39 PM [facility] REPOSITORY HNO ID: [id number] Author: Carla KingRn) MITCHELL Bashir Service: Emergency Medicine Author Type: Registered Nurse Type: ED Notes Filed: 07/21/2017 2:40 PM Note Text: 1 hour before arrival. Pt tripped on the carpet by his bed pt fell forward onto ostomy stoma + protrusion of stoma it is usually the size of a half dollar. stoma is now the size of a grapefruit. + nausea + hit head - LOC. + headache slight in front of head where he hit it. - blood thinners. + SOB + Chest tight ness. + brown stool out into ostomy bag. - uncontrolled bleeding. ED TRIAGE NOTE Observed: 07/21/2017 Status: COMPLETED Source: [place] 2:37 PM [facility] REPOSITORY HNO ID: [id number] Author: Lenin Mancera) Danni Service: Emergency Medicine Author Type: Physician Tool Grinder Operator Surface Type: ED Triage Notes Filed: 07/21/2017 2:40 PM Note Text: ED INTAKE NOTE Patient Name: Maxx Knott Service Date: 07/21/17 BRIEF HPI: This is a 66 year old male with PMH of CAD s/p CABG x 3 in 2005 (RHODES to LAD, SVg to RCA and SVg to LCx) CHFrEF (EF 45%), h/o paroxysmal VT s/p recent PPM placement (unclear if he has an ICD), ?and diverticulitis c/b perforation (July 2016) s/p Chad with loop colostomy who presents to the ED with complaints of abdominal pain status post fall. Patient states he fell approximately 2 hours ago onto his right side and head. Patient states he tripped over his carpet. He denies any prodromal symptoms prior to the fall. He does state that he hit the left side of his head at the frontal aspect. He denies any loss of consciousness. He is not on any blood thinners he reports. He is currently complaining of right sided lower abdominal pain around his stoma. He also states that his bowel is now protruding into his stoma more so than usual. He is complaining of severe pain to this area rated 9 out of 10 currently. He also reports nausea denies vomiting. He currently currently complains of a mild headache located to the left front side of his head where he hit his head. He denies any numbness, tingling, weakness. Denies any fever or chills. BRIEF EXAM: Awake and Alert RRR CTAB Abd firm, severe tenderness to palpation around the stoma site of the right lower quadrant. Bowel is protruding into the stoma about a grapefruit size. No dehiscence or bleeding that I can visualize. There is light brown stool in the ostomy bag. Patient appears to be distress. INTAKE WORKUP: Bloodwork: CBC CMP Cardiac Enzymes Coags Lactate EKG Urinalysis Imaging: XR: Chest SIGNATURE: ALEM Moya ED PROV NOTE Observed: 07/14/2017 Status: COMPLETED Source: [place] 11:12 PM [facility] REPOSITORY HNO ID: [id number] Author: Mine Proctor MD Service: Emergency Medicine Author Type: Physician Type: ED Provider Notes Filed: 07/15/2017 1:05 AM Note Text: ED Provider Note Patient Name: Maxx Knott SERVICE DATE: 07/14/17 History Patient presents with: colostomy bag issue HPI Patient presents stating that he needs his colostomy bag changed. Patient was recently discharged from the hospital. States there is normally a nurse that comes to the house to change his colostomy. States since he has gotten home from the hospital the nurses been unable to make it. Patient states he has supplies but does not know how to change the colostomy himself. Patient states the bag is starting to overflow and that he is getting leakage from around the site. He otherwise has no complaints and states he has been doing well since coming home from the hospital. 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 - Peritonitis ([facility]) PAST SURGICAL HISTORY Procedure Laterality Date - APPENDECTOMY HX - COLON SURGERY HX 07/2016 Chad's - HEART SURGERY HX triple bypass 10 yrs ago FAMILY HISTORY Problem Relation Age of Onset - Coronary Artery Disease Father - Hyperlipidemia Father Social History Social History Main Topics - Smoking status: Current Every Day Smoker Packs/day: 0.50 Years: 35.00 Types: Pipe, Cigarettes - Smokeless tobacco: Never Used Comment: Quit cigarettes 11-16-16 now smoking 4 pipes as of 04-18-17 - Alcohol use No - Drug use: No - Sexual activity: Not Currently ALLERGIES Allergen Reactions - Altaseptic Unknown - Crestor [Rosuvastat* Myalgia - Hctz [Amiloride-Hyd* Swelling - Other [place]-3s Unknown brelinta - Ramipril Swelling - Simvastatin Myalgia - Voltaren [Diclofena* Unknown Review of Systems Gastrointestinal: Positive for abdominal pain. Negative for blood in stool and vomiting. Physical Exam BP 162/70 Pulse 80 Temp (Src) 97.9 (Temporal Artery) Resp 14 Ht 5' 8 (1.73m) Wt 200 lb (90.7kg) SpO2 95% BMI 30.42 kg/(m2). Physical Exam Constitutional: He is oriented to person, place, and time. He appears well-developed. No distress. Abdominal: Soft. There is no tenderness. Colostomy noted. Bag filled with brown non-melanotic stool. Does appear to have some stool leaking around the bag. Neurological: He is alert and oriented to person, place, and time. Speech normal. Nursing note and vitals reviewed. Diagnostic Testing ED Labs Ordered and Reviewed - No data to display Procedures Medical Decision Making / ED Course ED Course patient states that since he got out of the hospital the nurse that usually comes to his home to change his ostomy has not been able to make it. He states he has supplies but is not able to change it himself. States it has been a number of days and that the stool starting to leak around the bag. Otherwise she has no complaints. States that he has been doing well since coming home from the hospital. Using the supplies that he brought with him nursing was able to change his colostomy and patient will be discharged home. Encounter Diagnosis ICD-10-CM 1. Colostomy malfunction (HCC) K94.03 Plan The Patient was DISCHARGED: Counseled patient regarding need for follow-up. Discharged home with verbal and written instructions. They were instructed to return as needed for persistent or worsening symptoms or any new concerns. Condition at time of disposition: stable SIGNATURE: MD Mine Lafleur MD 07/15/17 0105 ED NOTE Observed: 07/14/2017 Status: COMPLETED Source: [place] 11:06 PM [facility] REPOSITORY HNO ID: [id number] Author: Alis Toth) MITCHELL Remy Service: Emergency Medicine Author Type: Registered Nurse Type: ED Notes Filed: 07/14/2017 11:12 PM Note Text: Pt states has home nurse appt scheduled on Sunday or Sunday ED NOTE Observed: 07/14/2017 Status: COMPLETED Source: [place] 10:38 PM [facility] [place] REPOSITORY HNO ID: [id number] Author: Alis Toth) MITCHELL Remy Service: Emergency Medicine Author Type: Registered Nurse Type: ED Notes Filed: 07/14/2017 10:46 PM Note Text: Pt presents today with c/o colostomy issue. Pt had colostomy placed 1 year ago due to ruptured diverticulum, states there have been talks of reversal however due to cardiac history, unable to be performed at this time. Pt states he has his colostomy changed and assessed by home health nurse every 8-10 days however his home health nurse was unable to make her scheduled appt this week. Pt states early this morning his current colostomy bag, which he states is the wrong one, began to leak. Pt attempted to stop leaking with large amounts of medical tape, however moderate amount of stool leaking around colostomy site. This nurse use adhesive removal to slowly remove tape and adhesive. Once removed, large amount of soft stool noted with small amounts of blackish colored hard stool which appears to be aged. Pt stoma very large in size, states it is prolapsed, red and moist, baseline per pt, surrounding tissue is escoriated and tender to the touch. Pt skin cleansed with no rinse soap and dried, old adhesive removed from skin, skin prep placed and new colostomy bag placed with pt instructions. PROGRESS Observed: 07/10/2017 Status: COMPLETED Source: [place] 10:34 AM [facility] REPOSITORY [facility] ID: [id number] Author: Parul Celeste (Pharmacist) Service: (none) Author Type: Pharmacist Type: Progress Notes Filed: 07/25/2017 4:05 PM Note Text: TRANSITION CARE MANAGEMENT (TCM) INITIAL CONTACT Provider Action/FYI: Patient does not have a follow up appointment with PCP scheduled. Patient may benefit from f/u visit. Will reach out to ground crewman aircraft support to schedule appointment Unsure if patient is using Plavix with aspirin, no refill history noted in Reconcile Dispense Report. Please consider confirming at follow up appointment if visit is scheduled. Patient unable to be reached after two or more unsuccessful outreach attempts. No further attempts to contact patient will be made. SUMMARY: -Pt discharged from [facility] on 07/09/17. -Follow up appointment on No follow up appointment scheduled yet. -Medication review not done. -Admitted for Prolapsed Stoma History of Present Illness: The following content has been copied and pasted from patient's discharge summary. SUMMARY OF WHAT HAPPENED WHILE I WAS IN THE HOSPITAL: This is a 66 year old male who presented with a prolapsed stoma. The patient states this happened day of admission and he states it is worse than previous prolapses he has had in the past. He is nauseated and hasn't eaten since it happened. He states he has had small amout of liquid discharge from the stoma since the prolapse. He has a significant heart history and was last seen by a straightening machine operator he thinks 3 months ago. Of note, he was scheduled for elective surgery on 06/21/[address] Rios Yoo for reversal of the Chad's. The patient was seen in the outpatient setting by Dr. Monge from Cardiology who recommended delaying surgery due to the need for DAPT for at least 3-6 months given recent NSTEMI at requiring PCI and GREY. CT scan revealed acute diverticulitis and Mr. Knott was started on cipro/flagyl and given a clear liquid diet. This diet was advanced the following day as tolerated without increased pain, nausea or vomiting. IV antibiotics will be transitioned to oral antibiotics for discharge and Mr. Knott is stable for discharge as no surgical intervention at this time. 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 rnp ok with discharge[ 06/25/2017 176/78[MD Odell ok for D/C[ 06/17/2017 145/63 eGFR (no units) Date Value 07/09/2017 >60 eGFR-All Other Races (.) Date Value 06/25/2017 >60 eGFR- (no units) Date Value 06/25/2017 >60 Estimated Creatinine Clearance: 72.2 mL/min (based on Cr of 1.1). ALLERGIES Allergen Reactions - Altaseptic Unknown - Crestor [Rosuvastat* Myalgia - Hctz [Amiloride-Hyd* Swelling - Other [place]-3s Unknown brelinta - Ramipril Swelling - Simvastatin Myalgia - Voltaren [Diclofena* Unknown Preferred pharmacy: [facility] [address] [place] [address] - [address] - [phone] [facility] AND [facility] [address] [facility] [address] Medication Reconciliation: Legend: Stopped, New, Changed, Added to list Medication List Medication Directions Comments Action/Plan Discontinued: 07/06/2017 8:21 PM acetaminophen (TYLENOL) 325 mg tablet Take 3 tablets by mouth every 6 hours. New RX- OTC albuterol HFA (PROVENTIL HFA, VENTOLIN HFA) 90 mcg/actuation inhaler Inhale as instructed. Using PRN? May benefit from new RX to have on hand. AMLODIPINE BESYLATE (AMLODIPINE ORAL) Take 10 mg by mouth once daily. Last filled 07/30/15 aspirin 81 mg chewable tablet Take 81 mg by mouth once daily. OTC- using with Plavix? Discontinued: 07/06/2017 8:25 PM ciprofloxacin HCl (CIPRO) 500 mg tablet Take 1 tablet by mouth every 12 hours for 10 days. New RX Discontinued: 07/06/2017 3:25 PM Discontinued: 07/06/2017 8:24 PM COMPOUNDED PRESCRIPTION One Piece Ostomy Pouch Item Type: Coloplast Sensura One Piece Non-Sterile with Window 07/05-05/01'' ?5/Box ICD 10: Prolapsed Stoma K94.09 COMPOUNDED PRESCRIPTION Paste: Convatec Stomahesive 1 tube ICD 10: Prolapsed Stoma K 94.09 Discontinued: 07/06/2017 8:22 PM Discontinued: 07/06/2017 8:22 PM cyclobenzaprine (FLEXERIL) 10 mg tablet Take 1 tablet by mouth daily at bedtime. Filled 04/18/17 x 90 day fluticasone (FLONASE) 50 mcg/actuation nasal spray Use in the nose. furosemide (LASIX) 20 mg tablet Take 40 mg by mouth once daily as needed. Last filled 04/15/16 x 30 day gabapentin (NEURONTIN) 300 mg capsule Take 2 capsules by mouth daily at bedtime for 90 days. Last filled 04/18/17 x 45 day isosorbide mononitrate ER (IMDUR) 60 mg 24 hr tablet Take 1 tablet by mouth once daily. Last filled 03/03/16 x 30 day losartan (COZAAR) 100 mg tablet Take 100 mg by mouth once daily. Last filled 05/18/16 metoprolol succinate ER (TOPROL XL) 100 mg Tb24 Take 1 tablet by mouth once daily. Last filled 04/18/17 x 90 day metroNIDAZOLE (FLAGYL) 500 mg tablet Take 1 tablet by mouth every 8 hours for 10 days. New RX MULTIVIT WITH IRON,MINERALS (MULTIVITAMIN AND MINERALS ORAL) Take 1 capsule by mouth. OTC nitroglycerin sublingual (NITROSTAT) 0.[address] ONE(1) TABLET UNDER TONGUE NEEDED FOR CHEST PAIN. IF NO PAIN RELIEF CALL 911 May need new RX to have on hand oxyCODONE IR (ROXICODONE) 5 mg immediate release tablet Take 1 tablet by mouth every 6 hours as needed for Pain for up to 7 days. New Rx- Filled at [facility] Discontinued: 07/09/2017 2:07 PM pravastatin (PRAVACHOL) 40 mg tablet Take 40 mg by mouth daily at bedtime. QUEtiapine (SEROQUEL) 200 mg tablet Take 2 tablets by mouth daily at bedtime. Filled 04/18/17 x 30 day Time spent on patient: 30-45 minutes Parul Celeste Pharmacist July 10, 2017 10:35 AM RUTH Observed: 07/10/2017 Status: COMPLETED Source: [place] 12:00 AM [facility] REPOSITORY Patient Outreach (AMBPHARMSVC) MAXX KNOTT ([id number]) 1950 M Date Time Provider Department 07/10/17 CLIFFORD (PHARMACIST)PARULRMCIERRA During your visit today, we recorded the following information about you: Parul Celeste Pharmacist 07/25/2017 4:05 PM Signed TRANSITION CARE MANAGEMENT (TCM) INITIAL CONTACT Provider Action/FYI: Patient does not have a follow up appointment with PCP scheduled. Patient may benefit from f/u visit. Will reach out to ground crewman aircraft support to schedule appointment Unsure if patient is using Plavix with aspirin, no refill history noted in Reconcile Dispense Report. Please consider confirming at follow up appointment if visit is scheduled. Patient unable to be reached after two or more unsuccessful outreach attempts. No further attempts to contact patient will be made. SUMMARY: -Pt discharged from [facility] on 07/09/17. -Follow up appointment on No follow up appointment scheduled yet. -Medication review not done. -Admitted for Prolapsed Stoma History of Present Illness: The following content has been copied and pasted from patient's discharge summary. SUMMARY OF WHAT HAPPENED WHILE I WAS IN THE HOSPITAL: This is a 66 year old male who presented with a prolapsed stoma. The patient states this happened day of admission and he states it is worse than previous prolapses he has had in the past. He is nauseated and hasn't eaten since it happened. He states he has had small amout of liquid discharge from the stoma since the prolapse. He has a significant heart history and was last seen by a straightening machine operator he thinks 3 months ago. Of note, he was scheduled for elective surgery on 06/21/[address] Rios Yoo for reversal of the Chda's. The patient was seen in the outpatient setting by Dr. Monge from Cardiology who recommended delaying surgery due to the need for DAPT for at least 3-6 months given recent NSTEMI at requiring PCI and GREY. CT scan revealed acute diverticulitis and Mr. Knott was started on cipro/flagyl and given a clear liquid diet. This diet was advanced the following day as tolerated without increased pain, nausea or vomiting. IV antibiotics will be transitioned to oral antibiotics for discharge and Mr. Knott is stable for discharge as no surgical intervention at this time. 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 rnp ok with discharge[ 06/25/2017 176/78[MD Odell ok for D/C[ 06/17/2017 145/63 eGFR (no units) Date Value 07/09/2017 ANDgt;60 eGFR-All Other Races (.) Date Value 06/25/2017 ANDgt;60 eGFR- (no units) Date Value 06/25/2017 ANDgt;60 Estimated Creatinine Clearance: 72.2 mL/min (based on Cr of 1.1). ALLERGIES Allergen Reactions - Altaseptic Unknown - Crestor [Rosuvastat* Myalgia - Hctz [Amiloride-Hyd* Swelling - Other [place]-3s Unknown brelinta - Ramipril Swelling - Simvastatin Myalgia - Voltaren [Diclofena* Unknown Preferred pharmacy: [facility] [address] [place] [address] - [address] - [phone] [facility]; [place] [address] [facility] [address] Medication Reconciliation: Legend: Stopped, New, Changed, Added to list Medication List Medication Directions Comments Action/Plan Discontinued: 07/06/2017 8:21 PM acetaminophen (TYLENOL) 325 mg tablet Take 3 tablets by mouth every 6 hours. New RX- OTC albuterol HFA (PROVENTIL HFA, VENTOLIN HFA) 90 mcg/actuation inhaler Inhale as instructed. Using PRN? May benefit from new RX to have on hand. AMLODIPINE BESYLATE (AMLODIPINE ORAL) Take 10 mg by mouth once daily. Last filled 07/30/15 aspirin 81 mg chewable tablet Take 81 mg by mouth once daily. OTC- using with Plavix? Discontinued: 07/06/2017 8:25 PM ciprofloxacin HCl (CIPRO) 500 mg tablet Take 1 tablet by mouth every 12 hours for 10 days. New RX Discontinued: 07/06/2017 3:25 PM Discontinued: 07/06/2017 8:24 PM COMPOUNDED PRESCRIPTION One Piece Ostomy Pouch Item Type: Coloplast Sensura One Piece Non-Sterile with Window 07/05-05/01'' ?5/Box ICD 10: Prolapsed Stoma K94.09 COMPOUNDED PRESCRIPTION Paste: Convatec Stomahesive 1 tube ICD 10: Prolapsed Stoma K 94.09 Discontinued: 07/06/2017 8:22 PM Discontinued: 07/06/2017 8:22 PM cyclobenzaprine (FLEXERIL) 10 mg tablet Take 1 tablet by mouth daily at bedtime. Filled 04/18/17 x 90 day fluticasone (FLONASE) 50 mcg/actuation nasal spray Use in the nose. furosemide (LASIX) 20 mg tablet Take 40 mg by mouth once daily as needed. Last filled 04/15/16 x 30 day gabapentin (NEURONTIN) 300 mg capsule Take 2 capsules by mouth daily at bedtime for 90 days. Last filled 04/18/17 x 45 day isosorbide mononitrate ER (IMDUR) 60 mg 24 hr tablet Take 1 tablet by mouth once daily. Last filled 03/03/16 x 30 day losartan (COZAAR) 100 mg tablet Take 100 mg by mouth once daily. Last filled 05/18/16 metoprolol succinate ER (TOPROL XL) 100 mg Tb24 Take 1 tablet by mouth once daily. Last filled 04/18/17 x 90 day metroNIDAZOLE (FLAGYL) 500 mg tablet Take 1 tablet by mouth every 8 hours for 10 days. New RX MULTIVIT WITH IRON,MINERALS (MULTIVITAMIN AND MINERALS ORAL) Take 1 capsule by mouth. OTC nitroglycerin sublingual (NITROSTAT) 0.[address] ONE(1) TABLET UNDER TONGUE NEEDED FOR CHEST PAIN. IF NO PAIN RELIEF CALL 911 May need new RX to have on hand oxyCODONE IR (ROXICODONE) 5 mg immediate release tablet Take 1 tablet by mouth every 6 hours as needed for Pain for up to 7 days. New Rx- Filled at [facility] Discontinued: 07/09/2017 2:07 PM pravastatin (PRAVACHOL) 40 mg tablet Take 40 mg by mouth daily at bedtime. QUEtiapine (SEROQUEL) 200 mg tablet Take 2 tablets by mouth daily at bedtime. Filled 04/18/17 x 30 day Time spent on patient: 30-45 minutes Parul Celeste Pharmacist July 10, 2017 10:35 AM Allergies As of Date: 07/10/2017 Noted Allergy Reaction ALTASEPTIC 12/17/2016 16 - Unknown CRESTOR (ROSUVASTATIN CALCIUM) 12/17/2016 17 - Myalgia HCTZ (AMILORIDE-HYDROCHLOROTHIAZI*12/17/2016 7 - Swelling OTHER [place]-3S 07/06/2017 16 - Unknown Comments: brelinta RAMIPRIL 12/17/2016 7 - Swelling SIMVASTATIN 12/17/2016 17 - Myalgia VOLTAREN (DICLOFENAC SODIUM) 12/17/2016 16 - Unknown Date Reviewed: 07/06/2017 Reviewed by: Sienna (Rn) Padma Cid RN - Fully Assessed Reason for Visit: Transition Of Care [4074] Cmt: Hopsital Discharge (07/09/17) Prescriptions as of 07/10/2017 Sig: ACETAMINOPHEN 325 MG TABLET Take 3 tablets by mouth every* OXYCODONE 5 MG TABLET Take 1 tablet by mouth every * X CIPROFLOXACIN 500 MG TABLET Take 1 tablet by mouth every * X METRONIDAZOLE 500 MG TABLET Take 1 tablet by mouth every * AMLODIPINE ORAL Take 10 mg by mouth once dominik* PRAVASTATIN 40 MG TABLET Take 40 mg by mouth daily at * CYCLOBENZAPRINE 10 MG TABLET Take 1 tablet by mouth daily * GABAPENTIN 300 MG CAPSULE Take 2 capsules by mouth dominik* METOPROLOL SUCCINATE ER 100 M* Take 1 tablet by mouth once d* QUETIAPINE 200 MG TABLET Take 2 tablets by mouth daily* COMPOUNDED PRESCRIPTION One Piece Ostomy Pouch Item T* COMPOUNDED PRESCRIPTION Paste: Convatec Stomahesive * MULTIVITAMIN AND MINERALS ORAL Take 1 capsule by mouth. ALBUTEROL SULFATE HFA 90 MCG/* Inhale as instructed. FLUTICASONE 50 MCG/ACTUATION * Use in the nose. NITROGLYCERIN 0.4 MG SUBLINGU* PLACE ONE(1) TABLET UNDER TON* LOSARTAN 100 MG TABLET Take 100 mg by mouth once roddy* ASPIRIN 81 MG CHEWABLE TABLET Take 81 mg by mouth once dominik* FUROSEMIDE 20 MG TABLET Take 40 mg by mouth once dominik* Problem List As Of Date 07/10/2017 Noted Resolved 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] INVALID FOR*07/09/2017 Priority: Very Severe More... Chest pain [R07.9] INVALID FOR* Priority: A More... Hypertensive crisis [I16.9] INVALID FOR* Priority: B More... Healthcare maintenance [Z00.00] INVALID FOR* Priority: M More... Malnutrition of mild degree (HCC) [E44.1] INVALID FOR* Priority: L More... CHF (congestive heart failure) (HCC) [I50.9] INVALID FOR* Diverticulitis of sigmoid colon [K57.32] INVALID FOR* Class: Recurrent More... Chronic systolic congestive heart failure (HCC)*INVALID FOR* Priority: J More... CAD (coronary artery disease) [I25.10] INVALID FOR* Priority: K More... Hypertensive heart disease with congestive hear*INVALID FOR* Priority: K Hypocalcemia [E83.51] INVALID FOR*06/19/2017 Hypernatremia [E87.0] INVALID FOR*06/19/2017 Hypokalemia [E87.6] INVALID FOR*06/19/2017 Parastomal hernia without obstruction or gangre*INVALID FOR* Abdominal aortic aneurysm without rupture (HCC)*INVALID FOR* Renal cysts, acquired, bilateral [N28.1] INVALID FOR* Arthritis [M19.90] INVALID FOR* Anxiety disorder [F41.9] INVALID FOR* Encounter Status:Closed by CLIFFORD (PHARMACIST)PARUL on 07/25/17 CNDS Observed: 07/09/2017 Status: COMPLETED Source: [place] 2:07 PM [facility] OTHER CAMPUS REPOSITORY HNO ID: [id number] Author: Brenna Crandall Service: General Surgery Author Type: Nurse Practitioner Type: Discharge Summaries Filed: 07/09/2017 2:13 PM Note Text: Attestation signed by Tj Hawley at 07/09/2017 3:27 PM Tj Hawley MD DISCHARGE SUMMARY PATIENT NAME: Maxx Knott Admission Information Admission Information ADMIT DATE: 07/06/2017 DISCHARGE DATE: 07/09/2017 MY DOCTORS AND MEDICAL TEAM: My Main Hospital Doctor: Martha Ewing Primary Care Provider: Bijan Perez MD My Medical Team Members: Treatment Team: Attending Provider: Martha Ewing Consulting: Gamal Stratton MY CONDITION AT DISCHARGE: Stable REASON I WAS IN THE HOSPITAL: prolapsed stoma SUMMARY OF WHAT HAPPENED WHILE I WAS IN THE HOSPITAL: This is a 66 year old male who presented with a prolapsed stoma. The patient states this happened day of admission and he states it is worse than previous prolapses he has had in the past. He is nauseated and hasn't eaten since it happened. He states he has had small amout of liquid discharge from the stoma since the prolapse. He has a significant heart history and was last seen by a straightening machine operator he thinks 3 months ago. Of note, he was scheduled for elective surgery on 06/21/[address] Rios Yoo for reversal of the Chad's. The patient was seen in the outpatient setting by Dr. Monge from Cardiology who recommended delaying surgery due to the need for DAPT for at least 3-6 months given recent NSTEMI at requiring PCI and GREY. CT scan revealed acute diverticulitis and Mr. Knott was started on cipro/flagyl and given a clear liquid diet. This diet was advanced the following day as tolerated without increased pain, nausea or vomiting. IV antibiotics will be transitioned to oral antibiotics for discharge and Mr. Knott is stable for discharge as no surgical intervention at this time. OTHER PROBLEMS/DIAGNOSIS: Principal Problem: Diverticulitis of sigmoid colon Active Problems: Chronic systolic congestive heart failure (HCC) CAD (coronary artery disease) Hypertensive heart disease with congestive heart failure (HCC) Malnutrition of mild degree (HCC) Resolved Problems: Colostomy prolapse (HCC) OPERATIONS PERFORMED WHILE IN THE HOSPITAL: None IMPORTANT TEST/PROCEDURES: No procedures performed TEST RESULTS NOT AVAILABLE AT THIS TIME: No pending results Discharge Disposition Discharge Disposition: Home With Self Care Activity When You Leave the Hospital No prolonged bedrest, longer than 8 hours in a 24 hour period Resume pre-hospital activity Diet Instructions Soft Foods For Pain When You Leave the Hospital No alcohol or driving while on pain medication Use acetaminophen (Tylenol) as recommended on the bottle Use the dispensed medication (see prescription) You should use an avkb-xek-anrwtev stool softener (Docusate sodium) and/or a fiber supplement (Metamucil, Fiber Con) every day while taking prescribed pain medication Call Your Doctor If You have persistent nausea/vomiting over 24 hours Your temperature is greater than 101F Follow Up Appointments Follow-Up Appointment When: In 4 weeks Patient/Parents to call for appointment?: Yes Ro Curiele Chrissy [phone] [address] [facility] [address] PCP Requested Referral Additional Provider to Provider Information: FOLLOW-UP APPOINTMENTS ALREADY SCHEDULED WITH A [facility] PROVIDER: No future appointments. DISCHARGE MEDICATION: Cipro 500mg PO BID for 10 days Flagyl 500mg PO TID for 10 days Current Discharge Medication List START taking these medications acetaminophen (TYLENOL) 975 mg Take 975 mg by mouth every 6 hours. oxyCODONE IR (ROXICODONE) 5 mg Take 5 mg by mouth every 6 hours as needed for Pain. Earliest Fill Date: 07/09/17 Qty: 20 tablet Refills: 0 Associated Diagnoses:Diverticulitis CONTINUE these medications which have NOT CHANGED AMLODIPINE BESYLATE (AMLODIPINE ORAL) 10 mg Take 10 mg by mouth once daily. pravastatin (PRAVACHOL) 40 mg Take 40 mg by mouth daily at bedtime. cyclobenzaprine (FLEXERIL) 10 mg Take 10 mg by mouth daily at bedtime. Qty: 90 tablet Refills: 0 Associated Diagnoses:Chronic low back pain, unspecified back pain laterality, with sciatica presence unspecified gabapentin (NEURONTIN) 600 mg Take 600 mg by mouth daily at bedtime. Qty: 90 capsule Refills: 0 Associated Diagnoses:Chronic low back pain, unspecified back pain laterality, with sciatica presence unspecified metoprolol succinate ER (TOPROL XL) 100 mg Take 100 mg by mouth once daily. Qty: 90 tablet Refills: 4 QUEtiapine (SEROquel) 400 mg Take 400 mg by mouth daily at bedtime. Qty: 60 tablet Refills: 0 !! COMPOUNDED PRESCRIPTION One Piece Ostomy Pouch Item Type: Coloplast Sensura One Piece Non-Sterile with Window 38-4 1/2'' ?5/Box ICD 10: Prolapsed Stoma K94.09 Qty: 1 Box Refills: 0 !! COMPOUNDED PRESCRIPTION Paste: Convatec Stomahesive 1 tube ICD 10: Prolapsed Stoma K 94.09 Qty: 1 Tube Refills: 0 MULTIVIT WITH IRON,MINERALS (MULTIVITAMIN AND MINERALS ORAL) 1 capsule Take 1 capsule by mouth. albuterol HFA (PROVENTIL HFA, VENTOLIN HFA) 90 mcg/actuation inhaler Inhale as instructed. fluticasone (FLONASE) 50 mcg/actuation nasal spray Use in the nose. losartan (COZAAR) 100 mg Take 100 mg by mouth once daily. aspirin 81 mg Take 81 mg by mouth once daily. furosemide (LASIX) 40 mg Take 40 mg by mouth once daily as needed. isosorbide mononitrate ER (IMDUR) 60 mg Take 60 mg by mouth once daily. Qty: 30 tablet Refills: 0 nitroglycerin sublingual (NITROSTAT) 0.[address] ONE(1) TABLET UNDER TONGUE NEEDED FOR CHEST PAIN. IF NO PAIN RELIEF CALL 911 Qty: 25 tablet Refills: 0 !! - Potential duplicate medications found. Please discuss with provider. STOP taking these medications oxyCODONE-acetaminophen (PERCOCET 10) 1 tablet Comments: Reason for Stopping: Exam: GENERAL: No distress, Alert NEURO: AANDOx3 LUNGS: Unlabored breathing CARDIAC: Regular rate and rhythm ABDOMEN: Soft, ND, TTP with parastomal hernia (reducible), gas and stool in gas EXTREMITIES: AMEZQUITA, No deformities, No edema SKIN: Skin color, texture, turgor normal, No rashes or lesions ? TIME OF CARE: Discharge Management: I personally spent less than 30 minutes involved in the discharge management of this patient. SIGNATURE: Brenna Crandall CNP PAGER/CONTACT #: [phone] DATE: July 09, 2017 TIME: 2:07 PM CASE MANAGEM Observed: 07/09/2017 Status: COMPLETED Source: [place] 12:40 PM [facility] OTHER CAMPUS REPOSITORY HNO ID: [id number] Author: Sobia Toth) MITCHELL Chun Service: Care Management Author Type: Registered Nurse Type: Care Mgt Progress Note Filed: 07/09/2017 12:41 PM Note Text: CARE MANAGEMENT PROGRESS NOTE SERVICE DATE: 07/09/2017 SERVICE TIME: 12:41 PM LOS: 3 days From home with brother who will assist as needed at time of DC. 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 Hx of stoma with appliances and requests better fitting appliances; will request ostomy nurse referral. +CPAP and other DME in home. SIGNATURE: Sobia Chun RN PATIENT NAME: Maxx Knott DATE: July 09, 2017 TIME: 12:40 PM PAGER/CONTACT #:[id number] CASE MGT INIT Observed: 07/09/2017 Status: COMPLETED Source: [facility] 12:26 PM [facility] OTHER CAMPUS REPOSITORY HNO ID: [id number] Author: Sobia Toth) MITCHELL Chun Service: Care Management Author Type: Registered Nurse Type: Care Mgt Initial Assessment Filed: 07/09/2017 12:38 PM Note Text: CARE MANAGEMENT: ASSESSMENT AND DISCHARGE PLAN SERVICE DATE: 07/09/2017 SERVICE TIME: 12:27 PM PRIMARY CARE PHYSICIAN: Y[address] Currently sees whomever is available Phone: ADMISSION STATUS: Inpatient MEDICAL: Patient/Home Comfort Advisor Stated Goals: To be cured/healed Health Insurance: MEDICARE A AND B Medicare Health Issues Impacting Discharge Plan: None Last Admission Date: Previous admit date: 06/17/2017 Is this Within the Past 30 days? Yes Is This a Planned Readmission? No: New symptoms of underlying disease Followed Up with Appointment Prior to Admission: Patient scheduled, but readmitted prior Where Did the Patient Come From? Home Intervention Taken to Avoid Future Readmission? na Health Literacy: 1. How often do you need to have someone help you when you read instructions, pamphlets, or other written material from your doctor or pharmacy? Sometimes - 3 2. How confident are you filling out medical forms by yourself? Quite a bit - 2 If Patient scores > 3 on either question, the following interventions were put into place: Use of plain language and active listening with Patient and family FUNCTIONAL AND COGNITIVE/BEHAVIORAL PRIOR TO ADMISSION: Baseline Mental Status: Alert AND Oriented, Person, Place , Time and Situation Functional Status: Independent Does Patient Currently Receive Any Community Services or Home Care? None Equipment Prior to Admission: cpap, nebulizer, walker, cane Has the Patient Been in a Half-Way Facility in the Past 30 days? No SOCIAL: Living Arrangement: Home Lives With: brother Financial Resources: Retired Primary Contact: Extended Emergency Contact Information Primary Emergency Contact: Mary Knott [address]: [address] [place] [address] [address] [place] [address] Mobile Relation: Brother Supportive: Yes Other Important Patient Contacts: None Caregiver Assessment: Caregiver is ready, willing and able to meet the patient's needs as recommended by the inter-professional team? Yes Patient's transition needs and plan for meeting these needs: to be determined Does the patient have an acute stroke diagnosis, or has the patient had a stroke during this admission? No Medication Adherence: I am convinced of the importance of my prescription medication: Agree completely - 0 I worry that my prescription medication will do more harm than good to me Disagree completely - 0 I feel financially burdened by my wxd-aa-wzruzi expenses for my prescription medication: Agree completely - 2 Patient is categorized as medium risk score 2-7: The following interventions are being put into place - [facility] and that is why he has been going to [facility] doctors. It is affordable that way. Are you interested in bedside delivery of your medications? No Food Concerns: In the Last Month, Have You had Trouble Getting Food? No trouble getting food During the Last Month, Have You Worried Whether Your Food Would Run Out Before You Had Enough Money to Buy More? No and yes, but states he is aware of the area food wiseman and meal sites. Is the Patient Psychosocially Complex? No ASSESSMENT AND PLAN: Medical Needs: sleep apnea, stoma to abdomen, hiatal hernia upper left Psychosocial Needs: None FREEDOM OF CHOICE EXPLAINED: N/A POTENTIAL TRANSITION PLANS Home SIGNATURE: Sobia Chun RN PATIENT NAME: Maxx Knott DATE: July 09, 2017 TIME: 12:27 PM PAGER/CONTACT #: [phone] PROGRESS Observed: 07/09/2017 Status: COMPLETED Source: [place] 8:55 AM CLINIC OTHER CAMPUS REPOSITORY O ID: [id number] Author: Gamal Stratton Service: (none) Author Type: Physician Type: Progress Notes Filed: 07/09/2017 9:04 AM Note Text: PROGRESS NOTE CARDIOLOGY SERVICE SERVICE DATE: 07/09/2017 SERVICE TIME: 8:55 AM Subjective Patient with known parastomal hernia who presented with increased abdominal pain and increased size of hernia. INTERIM HISTORYCARDIAC STATUS: Objective cad>>>NUCLEAR STRESS TEST >>05/18/2017. NO ISCHEMIA. CHF.>> NO CLINICAL CHF. EF= 47 %. PHYSICAL EXAM:Pleasant, comfortable, not in acute distress. Awake, alert, oriented times 3. Moves all extremities. SKIN: No rash or lumps. HEENT: Normocephalic, face symmetrical. NECK: Supple, no JVD, no carotid bruit, no thyromegaly. LUNGS: Clear to auscultation bilaterally. CARDIAC: PMI present, RRR, S1 and S2, no S3 or S4, no additional heart sounds or murmurs. ABDOMEN: Soft, nontender, bowel sounds present. EXTREMITIES: No edema. PULSES: Peripheral pulses present. PULSES: 2+ radial, 2+ carotid Body mass index is 30.41 kg/(m2). O2 Therapy: Room Air No Data Recorded Last 3 Encounter BP Readings: Date: BP: 07/06/2017 161/59 06/25/2017 176/78[MD Odell ok for D/C[ 06/17/2017 145/63 DATA: Diagnostic tests reviewed for today's visit: Most recent labs CBC: Recent Labs 07/09/17 0400 WBC 7.24 RBC 4.09* HB 12.8* HCT 38.1* PLT 264 MCV 93.2 MCH 31.3 MPV 10.5 RDW 14.9* BMP: Recent Labs 07/09/17 0400 NA 142 K 3.7 CHLOR 109* CO2 27 BUN 15 CREAT 1.10 GLUC 100* CMP: Recent Labs 07/09/17 0400 NA 142 K 3.7 CHLOR 109* CO2 27 BUN 15 CREAT 1.10 GLUC 100* CA 8.3* MG 1.7 ANION 10 Cardiac Enzymes: No results for input(s): CK, MB, CKMB, TROPT in the last 24 hours. Renal Panel: Recent Labs 07/09/17 0400 CREAT 1.10 BUN 15 GLUC 100* CA 8.3* P 2.8 CHLOR 109* K 3.7 CO2 27 NA 142 No results found for: TSH No results found for: HBA1C Cholesterol, Total Date Value Ref Range Status 10/02/2016 182 0 - 199 mg/dL Final Comment: <200 Desirable 200-240 Borderline >240 High HDL Cholesterol Date Value Ref Range Status 10/02/2016 37 >40 mg/dL Final LDL Calculated Date Value Ref Range Status 10/02/2016 125 mg/dL Final Comment: No CAD and with fewer than 2 CAD risk factors <160 mg/dl No CAD but with 2 or more CAD risk factors <130 mg/dl Definite CAD or other atherosclerotic disease <100 mg/dl Triglyceride Date Value Ref Range Status 10/02/2016 100 0 - 149 mg/dL Final Comment: < 200 Desirable Result invalid if not a fasting specimen. ASSESSMENT CAD.>>> STABLE. > stESS CARDIOLITE. NO ISCHEMIA. EF=47 %. PLANOK FOR V SURGERY. NO NEED TO REPEAT STRESS TEST. SIGNATURE: Gamal Stratton MD PATIENT NAME: Maxx Knott DATE: July 09, 2017 TIME: 8:55 AM PAGER/CONTACT #: GAMAL STRATTON. , FACC, AMAIRANI, HOWIE, PROGRESS Observed: 07/09/2017 Status: COMPLETED Source: [place] 6:22 AM CLINIC OTHER CAMPUS REPOSITORY HNO ID: [id number] Author: Tj Hawley Service: General Surgery Author Type: Physician Type: Progress Notes Filed: 07/09/2017 12:27 PM Note Text: EGS Surgery Progress Note SERVICE DATE: 07/09/2017 SUBJECTIVE: NAEON, tolerating diet with BF, pain controlled Tolerating diet DIET GASTRO INTESTINAL Nausea No Emesis No Flatus Yes Bowel movement Yes Pain Controlled Yes Ambulating Yes OBJECTIVE: Vitals: Temp (24hrs), Av.5 ?C (97.7 ?F), Min:36.3 ?C (97.3 ?F), Max:36.9 ?C (98.4 ?F) BP 154/60 Pulse 62 Temp 36.3 ?C (97.3 ?F) (Temporal Artery) Resp 18 Ht 172.7 cm (5' 8) Wt 90.7 kg (200 lb) SpO2 95% BMI 30.41 kg/m2 O2 Therapy: Room Air IANDO: Date 07/08/17 07 - 07/09/17 0659 07/09/17 07 - 07/10/17 0659 Shift 7790-5991 6446-0928 7217-6845 24 Hour Total 4812-3655 6205-6772 4314-0003 24 Hour Total I N T A K E PO 960 786 184 2696 PO 960 906 689 9837 IV 600 300 900 D5 LR 600 600 Cipro IV 200 200 Flagyl IV 100 100 Shift Total 1560 828 766 8562 O U T P U T Urine 800 251 332 2535 Void (ml) 800 160 069 1259 # of BMs Number of BMs 1 x 2 x 3 x Stool 300 300 Liquid BM (mL) 300 300 Shift Total 800 132 996 3463 Weight (kg) 90.7 90.7 90.7 90.7 90.7 90.7 90.7 90.7 MEDICATIONS Current Facility-Administered Medications: potassium-sodium phosphates 2 Packet (NEUTRA-PHOS,PHOS-NAK) 2 Packet ORAL PC and HS pantoprazole DR 40 mg tab(s) (PROTONIX) 40 mg ORAL DAILY (6 AM) acetaminophen 975 mg tab(s) (TYLENOL) 975 mg ORAL q 6 H oxyCODONE IR 5-10 mg tab(s) (ROXICODONE) 5-10 mg ORAL q 4 H PRN morphine 4 mg injection 4 mg INTRAVENOUS q 4 H PRN iv contrast (radiology procedure) INTRAVENOUS DIRECTED PRN losartan 100 mg tab(s) (COZAAR) 100 mg ORAL DAILY metoprolol succinate ER 100 mg tab(s) (TOPROL XL) 100 mg ORAL DAILY fluticasone 50 mcg/actuation 2 [place] (FLONASE) 2 [place] EACH NOSTRIL BID aspirin 81 mg chewable tab(s) 81 mg ORAL DAILY enoxaparin 40 mg injection (LOVENOX) 40 mg SUBCUTANEOUS DAILY ciprofloxacin 400 mg in D5W 200 mL (CIPRO) 400 mg INTRAVENOUS q 12 H metroNIDAZOLE 500 mg PREMIX piggyback (FLAGYL) 500 mg INTRAVENOUS q 8 H isosorbide mononitrate ER 60 mg tab(s) (IMDUR) 60 mg ORAL DAILY pravastatin 40 mg tab(s) (PRAVACHOL) 40 mg ORAL AT BEDTIME QUEtiapine 400 mg tab(s) (SEROquel) 400 mg ORAL AT BEDTIME Labs: Recent Labs 07/09/17 0400 07/08/17 0337 07/06/17 1608 NA 142 142 < > 136 K 3.7 3.4* < > 3.8 CHLOR 109* 110* < > 104 CO2 27 28 < > 25 BUN 15 12 < > 12 CREAT 1.10 0.97 < > 0.87 GLUC 100* 86 < > 114* ANION 10 7* < > 11 CA 8.3* 8.1* < > 9.2 MG 1.7 1.8 < > -- P 2.8 3.9 < > -- WBC 7.24 6.79 < > 8.75 HB 12.8* 12.0* < > 14.0 HCT 38.1* 35.8* < > 40.6 PLT 264 269 < > 360 LACT -- -- -- 1.0 INR -- -- -- 1.08 < > = values in this interval not displayed. Exam: GENERAL: No distress, Alert NEURO: AANDOx3, CN II-XII grossly intact HEENT: normocephalic, atraumatic LUNGS: Unlabored breathing CARDIAC: Regular rate and rhythm as above ABDOMEN: Soft, ND, TTP with parastomal hernia (reducible), gas and stool in gas EXTREMITIES: AMEZQUITA, No deformities, No edema SKIN: Skin color, texture, turgor normal, No rashes or lesions ASSESSMENT AND PLAN: Active Hospital Problems Diagnosis Date Noted - Colostomy prolapse (HCC) 01/05/2017 Priority: Very Severe - Chronic systolic congestive heart failure (HCC) 05/15/2017 Priority: J Overview Note: EF=47% April 2017 Added automatically from request for surgery [id number] - CAD (coronary artery disease) 05/16/2017 Priority: K Overview Note: Nuclear stress test >>No ischemia. EF=47% 2017 - Hypertensive heart disease with congestive heart failure (HCC) 05/16/2017 Priority: K - Malnutrition of mild degree ([facility]) 04/03/2017 Priority: L - Diverticulitis 05/15/2017 Overview Note: Added automatically from request for surgery [id number] 66 year old male with Recurrent Sigmoid Diverticulitis and Prolapsing Parastomal Hernia ?? - Soft GI Diet - Cipro/Flagyl - pain control - Appreciate Cardiology recs, recent PA, cont ASA, ARB, BB, Imdur - Lexiscan today per Dr. Gamal Stratton --> no need for repeat stress test - Lovenox for DVT ppx - Nocturnal CPAP - No acute surgical intervention at this time - dispo planning --> possible discharge today or tomorrow SIGNATURE: Isaias Tyson MD PATIENT NAME: Maxx Knott DATE: July 09, 2017 TIME: 6:23 AM Pager: [phone] ========= GENERAL SURGERY STAFF: I have personally seen and evaluated this patient and participated in the nelson components of this encounter. I discussed the management of this case with the surgery resident team and independently confirmed the findings and plan of care as documented either attached or in their separate note from today. Any corrections or additional notes are made as needed. Active Hospital Problems Diagnosis Date Noted - Diverticulitis of sigmoid colon 05/15/2017 Class: Recurrent Overview Note: Added automatically from request for surgery [id number] - Colostomy prolapse (HCC) 01/05/2017 Priority: Very Severe - Chronic systolic congestive heart failure ([facility]) 05/15/2017 Priority: J Overview Note: EF=47% April 2017 Added automatically from request for surgery [id number] - CAD (coronary artery disease) 05/16/2017 Priority: K Overview Note: Nuclear stress test >>No ischemia. EF=47% 2017 - Hypertensive heart disease with congestive heart failure (HCC) 05/16/2017 Priority: K - Malnutrition of mild degree (HCC) 04/03/2017 Priority: L Assessment and Plan: No plan for surgery at this time give recent ACS event in last 6 months. F/u as outpatient. Cardiology f/u appt as well Tj Hawley MD, FACS Section of Trauma, Surgery Critical Care, and Acute Care Surgery Pager: [phone] Office: [phone] July 09, 2017 ========= HEMOGRAM Collected: 07/09/2017 Status: F Source: [facility] 4:00 AM HEALTH SYSTEM REPOSITORY TYPE CODE TESTS RESULT OUT OF REFERENCE UNITS RANGE LAB WBC(LOINC) 4.23-9.07 thou/cmm WBC 7.24 LAB RBC(LOINC) 4.63-6.08 mil/cmm Low RBC 4.09 LAB HGB(LOINC) 13.7-17.5 g/dL Low Hgb 12.8 LAB HCT(LOINC) 40.1-51.0 % Low Hct 38.1 LAB MCV(LOINC) 83.2-95.6 fl MCV 93.2 LAB MCH(LOINC) 25.7-32.2 pg MCH 31.3 LAB MCHC(LOINC) 32.3-36.5 % MCHC 33.6 LAB RDW(LOINC) 11.6-14.4 % High RDW 14.9 LAB RDWSD(LOINC 36.1-45.8 fl ) High RDW SD 51.8 LAB PLT(LOINC) 141-365 thou/cmm Platelet 264 LAB MPV(LOINC) 8.7-12.0 fl MPV 10.5 Performed By: #### CBC1 #### [place] [address] BASIC PANEL Collected: 07/09/2017 Status: F Source: [facility] 4:00 AM HEALTH SYSTEM REPOSITORY TYPE CODE TESTS RESULT OUT OF REFERENCE UNITS RANGE LAB NA(LOINC) 136-145 mEq/L Sodium Blood 142 LAB K(LOINC) 3.5-5.1 mEq/L Potassium Blood 3.7 LAB CL(LOINC) 98-107 mEq/L Chloride High Blood 109 LAB CO2(LOINC) 21-32 mEq/L CO2 Blood 27 LAB GLU(LOINC) 70-99 mg/dL Glucose High Blood 100 LAB BUN(LOINC) 7-18 mg/dL BUN Blood 15 LAB CREA(LOINC 0.67-1.17 mg/dL ) Creatinine Blood 1.10 LAB CA(LOINC) 8.5-10.1 mg/dL Low Calcium Blood 8.3 LAB ANGAP(LOIN 8-16 C) Anion Gap 10 Performed By: #### P8 #### [place] [address] MAGNESIUM BLOOD Collected: 07/09/2017 Status: F Source: [facility] 4:00 [facility] REPOSITORY TYPE CODE TESTS RESULT OUT OF REFERENCE UNITS RANGE LAB MAG(LOINC) 1.6-2.6 mg/dL Magnesium Blood 1.7 Performed By: #### MAG #### [place] [address] PHOSPHORUS BLOOD Collected: 07/09/2017 Status: F Source: [facility] 4:00 HEALTH SYSTEM REPOSITORY TYPE CODE TESTS RESULT OUT OF REFERENCE UNITS RANGE LAB PHOS(LOINC 2.5-4.9 mg/dL ) Phosphorus Blood 2.8 Performed By: #### PHOS #### [place] [address] MDRD GFR Collected: 07/09/2017 Status: F Source: [facility] 4:00 HEALTH SYSTEM REPOSITORY TYPE CODE TESTS RESULT OUT OF RANGE REFERENCE UNITS LAB GFRFN(LOINC >60mL/min/1.73m ) 2 eGFR >60 Result Comment: If the patient is , multiply the result by 1.210. Performed By: #### GFR #### [facility] [address] [place] [address] PROGRESS Observed: 07/08/2017 Status: COMPLETED Source: [place] 10:13 AM CLINIC OTHER CAMPUS REPOSITORY HNO ID: [id number] Author: Sebastian Andino Service: (none) Author Type: Physician Type: Progress Notes Filed: 07/08/2017 10:20 AM Note Text: INPATIENT PROGRESS NOTE SERVICE DATE: 07/08/2017 SERVICE TIME: 829 Subjective Subjective: Symptoms: Stable. He reports anxiety. (Abdominal pain). Diet: Poor intake. Activity level: Impaired due to pain. Pain: He complains of pain that is mild. Pain is well controlled. Current hospital medications: potassium-sodium phosphates 2 Packet (NEUTRA-PHOS,PHOS-NAK) 2 Packet ORAL PC and HS pantoprazole DR 40 mg tab(s) (PROTONIX) 40 mg ORAL DAILY (6 AM) acetaminophen 975 mg tab(s) (TYLENOL) 975 mg ORAL q 6 H oxyCODONE IR 5-10 mg tab(s) (ROXICODONE) 5-10 mg ORAL q 4 H PRN morphine 4 mg injection 4 mg INTRAVENOUS q 4 H PRN iv contrast (radiology procedure) INTRAVENOUS DIRECTED PRN losartan 100 mg tab(s) (COZAAR) 100 mg ORAL DAILY metoprolol succinate ER 100 mg tab(s) (TOPROL XL) 100 mg ORAL DAILY fluticasone 50 mcg/actuation 2 [place] (FLONASE) 2 [place] EACH NOSTRIL BID aspirin 81 mg chewable tab(s) 81 mg ORAL DAILY enoxaparin 40 mg injection (LOVENOX) 40 mg SUBCUTANEOUS DAILY ciprofloxacin 400 mg in D5W 200 mL (CIPRO) 400 mg INTRAVENOUS q 12 H metroNIDAZOLE 500 mg PREMIX piggyback (FLAGYL) 500 mg INTRAVENOUS q 8 H dextrose 5% in LR infusion (D5-LR) 75 mL/hr INTRAVENOUS CONTINUOUS isosorbide mononitrate ER 60 mg tab(s) (IMDUR) 60 mg ORAL DAILY pravastatin 40 mg tab(s) (PRAVACHOL) 40 mg ORAL AT BEDTIME QUEtiapine 400 mg tab(s) (SEROquel) 400 mg ORAL AT BEDTIME Objective Objective: General Appearance: Comfortable and in no acute distress. Vital signs: (most recent): Blood pressure 138/56, pulse 60, temperature 36.3 ?C (97.3 ?F), temperature source Temporal Artery, resp. rate 18, height 172.7 cm (5' 8), weight 90.7 kg (200 lb), SpO2 95 %. Vital signs are normal. Output: Producing urine and minimal stool output. HEENT: Normal HEENT exam. Lungs: Normal respiratory rate and normal effort. There are decreased breath sounds. (Nasal CPAP on) Heart: Normal rate. Regular rhythm. S1 normal and S2 normal. Positive for murmur and gallop. Extremities: Decreased range of motion. Neurological: Patient is alert and oriented to person, place and time. Skin: Warm and dry. Abdomen: Abdomen is soft and non-distended. There are no signs of ascites. (Post op. Hernia, Colostomy)Bowel sounds are normal. There is no abdominal tenderness. There is no splenomegaly. There is no hepatomegaly. Pupils: Pupils are equal, round, and reactive to light. Pulses: Distal pulses are intact. Patient Vitals for the past 24 hrs: BP Temp Temp src Pulse Resp SpO2 07/08/17 0823 138/56 36.3 ?C (97.3 ?F) Temporal Art 60 18 95 % 07/08/17 0338 (!) 113/43 36.3 ?C (97.3 ?F) Temporal Art 60 18 92 % 07/07/17 2317 118/59 36 ?C (96.8 ?F) Oral 62 18 95 % 07/07/17 1844 132/65 36.7 ?C (98.1 ?F) Temporal Art (!) 59 18 94 % 07/07/17 1536 (!) 105/47 36.7 ?C (98.1 ?F) Temporal Art (!) 59 18 94 % 07/07/17 1129 137/62 36.7 ?C (98.1 ?F) Oral 60 18 94 % Body mass index is 30.41 kg/(m2). DATA: Diagnostic tests reviewed for today's visit: Potassium (mEq/L) Date Value 07/08/2017 3.4 Sodium (mEq/L) Date Value 07/08/2017 142 Magnesium (mg/dL) Date Value 07/08/2017 1.8 Creatinine (mg/dL) Date Value 07/08/2017 0.97 BUN (mg/dL) Date Value 07/08/2017 12 Glucose (mg/dL) Date Value 07/08/2017 86 PT INR (no units) Date Value 06/18/2017 1.0 INR (no units) Date Value 07/06/2017 1.08 Assessment: Condition: In stable condition. (Active Hospital Problems Colostomy prolapse (HCC) Chronic systolic congestive heart failure (HCC) EF=47% April 2017>>>Stable Added automatically from request for surgery [id number] CAD (coronary artery disease) ...Nuclear stress test >>No ischemia. EF=47% 2017>>Stable Hypertensive heart disease with congestive heart failure (HCC)>>>Stable Malnutrition of mild degree (HCC) Diverticulitis Added automatically from request for surgery [id number]). Plan: Per physical therapy and out of bed and up to chair. Start/continue incentive spirometry and continue respiratory treatments. Consults: physical therapy and occupational therapy. Restricted diet. Administer medications as ordered. (Specialty Problems Active Hospital Problems as of 07/08/2017 Noted - Resolved Chronic systolic congestive heart failure (HCC) 05/15/2017 - Present >>Compensated. Cleared for surgery. CAD (coronary artery disease) 05/16/2017 - Present >>Stable. Stress test Apr 2017. Hypertensive heart disease with congestive heart failure (HCC) 05/16/2017 - Present >>Meds>>>Stable Low cardiac risk for surgery. OK to proceed. ). SIGNATURE: Sebastian Andino MD,FACC,FASNC,CCDS;RS PATIENT NAME: Maxx Knott DATE: 07/08/2017 TIME: 10:20 AM PAGER: [phone] PROGRESS Observed: 07/08/2017 Status: COMPLETED Source: [place] 7:15 AM CLINIC OTHER CAMPUS REPOSITORY HNO ID: [id number] Author: Isaias (Twin) Jah Service: General Surgery Author Type: Resident Type: Progress Notes Filed: 07/08/2017 7:20 AM Note Text: Attestation signed by Manisha Manzano at 07/08/2017 5:34 PM ==== SURGERY STAFF: I have personally seen and evaluated this patient and participated in the nelson components of this encounter. I discussed the management of this case with the residents and independently confirmed the findings and plan of care as documented either attached or in their separate note from today. Any corrections or additional notes are made as needed. Doing well with decreased abdominal pain and tolerating clears. Advance to GI soft diet. Continue IV antibiotics 24 more hours and likely switch to PO tomorrow AM if doing well and no increase in white count. Cardiology to perform testing tomorrow. ==== Manisha Manzano MD EGS Surgery Progress Note SERVICE DATE: 07/08/2017 SUBJECTIVE: NAEON, pain controlled, tolerated liquids Tolerating diet DIET LIQUID Nausea No Emesis No Flatus Yes Bowel movement Yes Pain Controlled Yes Ambulating Yes OBJECTIVE: Vitals: Temp (24hrs), Av.5 ?C (97.7 ?F), Min:36 ?C (96.8 ?F), Max:36.7 ?C (98.1 ?F) BP (!) 113/43 Pulse 60 Temp 36.3 ?C (97.3 ?F) (Temporal Artery) Resp 18 Ht 172.7 cm (5' 8) Wt 90.7 kg (200 lb) SpO2 92% BMI 30.41 kg/m2 O2 Therapy: Room Air IANDO: Date 07/07/17 07 - 07/08/17 0659 07/08/17 07 - 07/09/17 0659 Shift 7982-2045 5422-2188 5456-4198 24 Hour Total 0087-2154 5507-2143 0197-7694 24 Hour Total I N T A K E PO 600 258 616 5074 PO 600 290 502 1923 IV 300 300 Cipro IV 200 200 Flagyl IV 100 100 Shift Total 600 125 746 6830 O U T P U T Urine 400 164 272 4312 Void (ml) 400 339 654 2582 Shift Total 400 153 871 9901 Weight (kg) 90.7 90.7 90.7 90.7 90.7 90.7 90.7 90.7 MEDICATIONS Current Facility-Administered Medications: potassium-sodium phosphates 2 Packet (NEUTRA-PHOS,PHOS-NAK) 2 Packet ORAL PC and HS pantoprazole DR 40 mg tab(s) (PROTONIX) 40 mg ORAL DAILY (6 AM) acetaminophen 975 mg tab(s) (TYLENOL) 975 mg ORAL q 6 H oxyCODONE IR 5-10 mg tab(s) (ROXICODONE) 5-10 mg ORAL q 4 H PRN morphine 4 mg injection 4 mg INTRAVENOUS q 4 H PRN iv contrast (radiology procedure) INTRAVENOUS DIRECTED PRN losartan 100 mg tab(s) (COZAAR) 100 mg ORAL DAILY metoprolol succinate ER 100 mg tab(s) (TOPROL XL) 100 mg ORAL DAILY fluticasone 50 mcg/actuation 2 [place] (FLONASE) 2 [place] EACH NOSTRIL BID aspirin 81 mg chewable tab(s) 81 mg ORAL DAILY enoxaparin 40 mg injection (LOVENOX) 40 mg SUBCUTANEOUS DAILY ciprofloxacin 400 mg in D5W 200 mL (CIPRO) 400 mg INTRAVENOUS q 12 H metroNIDAZOLE 500 mg PREMIX piggyback (FLAGYL) 500 mg INTRAVENOUS q 8 H dextrose 5% in LR infusion (D5-LR) 75 mL/hr INTRAVENOUS CONTINUOUS isosorbide mononitrate ER 60 mg tab(s) (IMDUR) 60 mg ORAL DAILY pravastatin 40 mg tab(s) (PRAVACHOL) 40 mg ORAL AT BEDTIME QUEtiapine 400 mg tab(s) (SEROquel) 400 mg ORAL AT BEDTIME Labs: Recent Labs 07/08/17 0337 07/07/17 0445 07/06/17 1608 NA 142 142 136 K 3.4* 3.0* 3.8 CHLOR 110* 108* 104 CO2 28 30 25 BUN 12 10 12 CREAT 0.97 0.88 0.87 GLUC 86 102* 114* ANION 7* 7* 11 CA 8.1* 8.3* 9.2 MG 1.8 1.9 -- P 3.9 2.8 -- WBC 6.79 6.43 8.75 HB 12.0* 12.2* 14.0 HCT 35.8* 36.5* 40.6 PLT 269 284 360 LACT -- -- 1.0 INR -- -- 1.08 Exam: GENERAL: No distress, Alert NEURO: AANDOx3, CN II-XII grossly intact HEENT: normocephalic, atraumatic LUNGS: Unlabored breathing CARDIAC: Regular rate and rhythm as above ABDOMEN: Soft, ND, TTP with parastomal hernia (reducible), gas and stool in gas EXTREMITIES: AMEZQUITA, No deformities, No edema SKIN: Skin color, texture, turgor normal, No rashes or lesions ASSESSMENT AND PLAN: Active Hospital Problems Diagnosis Date Noted - Diverticulitis 05/15/2017 Overview Note: Added automatically from request for surgery [id number] 66 year old male with Diverticulitis and Prolapsing Parastomal Hernia ? - CLD - Cipro/Flagyl - pain control - Appreciate Cardiology recs, recent PA, cont ASA, ARB, BB, Imdur - Lexiscan tomorrow - Lovenox for DVT ppx - Nocturnal CPAP - hypokalemia- replacing orally - No acute surgical intervention SIGNATURE: Isaias Tyson MD PATIENT NAME: Maxx Knott DATE: July 08, 2017 TIME: 7:15 AM Pager: [phone] HEMOGRAM Collected: 07/08/2017 Status: F Source: [facility] 3:37 HEALTH SYSTEM REPOSITORY TYPE CODE TESTS RESULT OUT OF REFERENCE UNITS RANGE LAB WBC(LOINC) 4.23-9.07 thou/cmm WBC 6.79 LAB RBC(LOINC) 4.63-6.08 mil/cmm Low RBC 3.87 LAB HGB(LOINC) 13.7-17.5 g/dL Low Hgb 12.0 LAB HCT(LOINC) 40.1-51.0 % Low Hct 35.8 LAB MCV(LOINC) 83.2-95.6 fl MCV 92.5 LAB MCH(LOINC) 25.7-32.2 pg MCH 31.0 LAB MCHC(LOINC) 32.3-36.5 % MCHC 33.5 LAB RDW(LOINC) 11.6-14.4 % High RDW 15.1 LAB RDWSD(LOINC 36.1-45.8 fl ) High RDW SD 51.4 LAB PLT(LOINC) 141-365 thou/cmm Platelet 269 LAB MPV(LOINC) 8.7-12.0 fl MPV 10.5 Performed By: #### CBC1 #### [place] [address] BASIC PANEL Collected: 07/08/2017 Status: F Source: [facility] 3:[facility] REPOSITORY TYPE CODE TESTS RESULT OUT OF REFERENCE UNITS RANGE LAB NA(LOINC) 136-145 mEq/L Sodium Blood 142 LAB K(LOINC) 3.5-5.1 mEq/L Low Potassium Blood 3.4 LAB CL(LOINC) 98-107 mEq/L Chloride High Blood 110 LAB CO2(LOINC) 21-32 mEq/L CO2 Blood 28 LAB GLU(LOINC) 70-99 mg/dL Glucose Blood 86 LAB BUN(LOINC) 7-18 mg/dL BUN Blood 12 LAB CREA(LOINC 0.67-1.17 mg/dL ) Creatinine Blood 0.97 LAB CA(LOINC) 8.5-10.1 mg/dL Low Calcium Blood 8.1 LAB ANGAP(LOIN 8-16 C) Low Anion Gap 7 Performed By: #### P8 #### [facility] [address] [place] [address] MAGNESIUM BLOOD Collected: 07/08/2017 Status: F Source: [facility] 3:37 AM HEALTH SYSTEM REPOSITORY TYPE CODE TESTS RESULT OUT OF REFERENCE UNITS RANGE LAB MAG(LOINC) 1.6-2.6 mg/dL Magnesium Blood 1.8 Performed By: #### MAG #### [facility] [address] [place] [address] PHOSPHORUS BLOOD Collected: 07/08/2017 Status: F Source: [facility] 3:37 AM HEALTH SYSTEM REPOSITORY TYPE CODE TESTS RESULT OUT OF REFERENCE UNITS RANGE LAB PHOS(LOINC 2.5-4.9 mg/dL ) Phosphorus Blood 3.9 Performed By: #### PHOS #### [facility] [address] [place] [address] MDRD GFR Collected: 07/08/2017 Status: F Source: [facility] 3:37 AM HEALTH SYSTEM REPOSITORY TYPE CODE TESTS RESULT OUT OF RANGE REFERENCE UNITS LAB GFRFN(LOINC >60mL/min/1.73m ) 2 eGFR >60 Result Comment: If the patient is , multiply the result by 1.210. Performed By: #### GFR #### [facility] [address] [place] [address] PROGRESS Observed: 07/07/2017 Status: COMPLETED Source: [place] 4:25 PM [facility] OTHER [place] REPOSITORY HNO ID: [id number] Author: Isaias Tyson Service: General Surgery Author Type: Resident Type: Progress Notes Filed: 07/07/2017 4:29 PM Note Text: Patient seen and examined for prolapsing stoma. He had a BM in addition to a few coughing fits which led to the prolapse. Patient was given 4mg IV morphine and 1mg Ativan. Once his abdomen was able to relax with pain control and anxiolysis, the prolapsed stoma and parastomal hernia were both easily reducible. No complications. Patient tolerated it well with just mild discomfort. Isaias Tyson MD 07/07/2017 4:29 PM NURSING PROG Observed: 07/07/2017 Status: COMPLETED Source: [place] 3:45 PM [facility] REPOSITORY HNO ID: [id number] Author: Jaxon KingRn) MITCHELL Grimes Service: (none) Author Type: Registered Nurse Type: Nursing Progress Note Filed: 07/07/2017 4:20 PM Note Text: Nursing Progress Note Patient Name: Maxx Knott Patient Location: [place] [address] [address]* Dr. Tyson at the bedside working on protruding colostomy. This note was completed by: Jaxon Grimes RN NURSING PROG Observed: 07/07/2017 Status: COMPLETED Source: [place] 3:30 PM [facility] REPOSITORY HNO ID: [id number] Author: Jaxon Toth) MITCHELL Grimes Service: (none) Author Type: Registered Nurse Type: Nursing Progress Note Filed: 07/07/2017 4:18 PM Note Text: Nursing Progress Note Patient Name: Maxx Knott Patient Location: [place] [address] [address]* Stoma protruding in the bag much more than earlier; Dr. Feliciano aware, will come up to evaluate pt shortly. This note was completed by: Jaxon Grimes RN PROGRESS Observed: 07/07/2017 Status: COMPLETED Source: [place] 6:27 AM [facility] REPOSITORY HNO ID: [id number] Author: Isaias Tyson Service: General Surgery Author Type: Resident Type: Progress Notes Filed: 07/07/2017 7:05 AM Note Text: Attestation signed by Manisha Manzano at 07/07/2017 11:49 AM ==== SURGERY STAFF: I have personally seen and evaluated this patient and participated in the nelson components of this encounter. I discussed the management of this case with the residents and independently confirmed the findings and plan of care as documented either attached or in their separate note from today. Any corrections or additional notes are made as needed. CT scan last evening revealed acute diverticulitis. As such will treat with antibiotics and bowel rest (only allow clear liquids today). No intervention for his parastomal hernia at this point. The elective hernia repair was delayed by Cardiology as the patient was reportedly supposed to be on ASA and plavix for 3-6months after his PCI (01/2017) but for an unknown reason, that patient reports someone told him to stop the plavix and he is therefore only on ASA. We are awaiting a cardiology consult to help manage his DAPT. ==== Manisha Manzano MD [facility] Surgery Progress Note SERVICE DATE: 07/07/2017 SUBJECTIVE: NAEON Tolerating diet DIET NPO Nausea No Emesis No Flatus Yes Bowel movement Yes Pain Controlled Yes Ambulating Yes OBJECTIVE: Vitals: Temp (24hrs), Av.4 ?C (97.5 ?F), Min:36 ?C (96.8 ?F), Max:36.7 ?C (98.1 ?F) BP 149/73 Pulse 72 Temp 36.2 ?C (97.2 ?F) (Temporal Artery) Resp 18 Ht 172.7 cm (5' 8) Wt 90.7 kg (200 lb) SpO2 94% BMI 30.41 kg/m2 O2 Therapy: Continuous Positive Airway Pressure IANDO: Date 07/06/17 0700 - 07/07/17 0659 07/07/17 0700 - 07/08/17 0659 Shift 3419-9684 4924-2079 6182-8224 24 Hour Total 0960-4739 5662-7832 7202-0799 24 Hour Total I N T A K E Shift Total O U T P U T Urine 932 653 7218 Void (ml) 915 548 6310 Urine Not Saved 1 1 Shift Total 739 803 2967 Weight (kg) 90.7 90.7 90.7 90.7 90.7 90.7 90.7 90.7 MEDICATIONS Current Facility-Administered Medications: iv contrast (radiology procedure) INTRAVENOUS DIRECTED PRN losartan 100 mg tab(s) (COZAAR) 100 mg ORAL DAILY metoprolol succinate ER 100 mg tab(s) (TOPROL XL) 100 mg ORAL DAILY fluticasone 50 mcg/actuation 2 [place] (FLONASE) 2 [place] EACH NOSTRIL BID aspirin 81 mg chewable tab(s) 81 mg ORAL DAILY morphine 2-4 mg injection 2-4 mg INTRAVENOUS q 2 H PRN enoxaparin 40 mg injection (LOVENOX) 40 mg SUBCUTANEOUS DAILY ciprofloxacin 400 mg in D5W 200 mL (CIPRO) 400 mg INTRAVENOUS q 12 H metroNIDAZOLE 500 mg PREMIX piggyback (FLAGYL) 500 mg INTRAVENOUS q 8 H dextrose 5% in LR infusion (D5-LR) 125 mL/hr INTRAVENOUS CONTINUOUS isosorbide mononitrate ER 60 mg tab(s) (IMDUR) 60 mg ORAL DAILY pravastatin 40 mg tab(s) (PRAVACHOL) 40 mg ORAL AT BEDTIME QUEtiapine 400 mg tab(s) (SEROquel) 400 mg ORAL AT BEDTIME Labs: Recent Labs 07/07/17 0445 07/06/17 1608 NA -- 136 K -- 3.8 CHLOR -- 104 CO2 -- 25 BUN -- 12 CREAT -- 0.87 GLUC -- 114* ANION -- 11 CA -- 9.2 WBC 6.43 8.75 HB 12.2* 14.0 HCT 36.5* 40.6 PLT 284 360 LACT -- 1.0 INR -- 1.08 Exam: GENERAL: No distress, Alert NEURO: AANDOx3, CN II-XII grossly intact HEENT: normocephalic, atraumatic LUNGS: Unlabored breathing CARDIAC: Regular rate and rhythm as above ABDOMEN: Soft, ND, TTP with parastomal hernia (reducible), gas and stool in gas EXTREMITIES: AMEZQUITA, No deformities, No edema SKIN: Skin color, texture, turgor normal, No rashes or lesions ASSESSMENT AND PLAN: Active Hospital Problems Diagnosis Date Noted - Diverticulitis 05/15/2017 Overview Note: Added automatically from request for surgery [id number] 66 year old male with Diverticulitis and Prolapsing Parastomal Hernia - NPO/IVF - Cipro/Flagyl - pain control - Appreciate Cardiology recs, recent PA, cont ASA, ARB, BB, Imdur - Lovenox for DVT ppx - Nocturnal CPAP - hypophos - replacing SIGNATURE: Isaias Tyson MD PATIENT NAME: Maxx Knott DATE: July 07, 2017 TIME: 6:28 AM Pager: [phone] HEMOGRAM Collected: 07/07/2017 Status: F Source: [facility] 4:45 AM HEALTH SYSTEM REPOSITORY TYPE CODE TESTS RESULT OUT OF REFERENCE UNITS RANGE LAB WBC(LOINC) 4.23-9.07 thou/cmm WBC 6.43 LAB RBC(LOINC) 4.63-6.08 mil/cmm Low RBC 3.91 LAB HGB(LOINC) 13.7-17.5 g/dL Low Hgb 12.2 LAB HCT(LOINC) 40.1-51.0 % Low Hct 36.5 LAB MCV(LOINC) 83.2-95.6 fl MCV 93.4 LAB MCH(LOINC) 25.7-32.2 pg MCH 31.2 LAB MCHC(LOINC) 32.3-36.5 % MCHC 33.4 LAB RDW(LOINC) 11.6-14.4 % High RDW 14.7 LAB RDWSD(LOINC 36.1-45.8 fl ) High RDW SD 50.4 LAB PLT(LOINC) 141-365 thou/cmm Platelet 284 LAB MPV(LOINC) 8.7-12.0 fl MPV 10.6 Performed By: #### CBC1 #### [place] [address] BASIC PANEL Collected: 07/07/2017 Status: F Source: [facility] 4:45 AM [facility] REPOSITORY TYPE CODE TESTS RESULT OUT OF REFERENCE UNITS RANGE LAB NA(LOINC) 136-145 mEq/L Sodium Blood 142 LAB K(LOINC) 3.5-5.1 mEq/L Low Potassium Blood 3.0 LAB CL(LOINC) 98-107 mEq/L Chloride High Blood 108 LAB CO2(LOINC) 21-32 mEq/L CO2 Blood 30 LAB GLU(LOINC) 70-99 mg/dL Glucose High Blood 102 LAB BUN(LOINC) 7-18 mg/dL BUN Blood 10 LAB CREA(LOINC 0.67-1.17 mg/dL ) Creatinine Blood 0.88 LAB CA(LOINC) 8.5-10.1 mg/dL Low Calcium Blood 8.3 LAB ANGAP(LOIN 8-16 C) Low Anion Gap 7 Performed By: #### P8 #### [place] [address] MAGNESIUM BLOOD Collected: 07/07/2017 Status: F Source: [facility] 4:45 AM HEALTH SYSTEM REPOSITORY TYPE CODE TESTS RESULT OUT OF REFERENCE UNITS RANGE LAB MAG(LOINC) 1.6-2.6 mg/dL Magnesium Blood 1.9 Performed By: #### MAG #### [place] [address] PHOSPHORUS BLOOD Collected: 07/07/2017 Status: F Source: [facility] 4:45 AM HEALTH SYSTEM REPOSITORY TYPE CODE TESTS RESULT OUT OF REFERENCE UNITS RANGE LAB PHOS(LOINC 2.5-4.9 mg/dL ) Phosphorus Blood 2.8 Performed By: #### PHOS #### [facility] [address] [place], [place] [address] MDRD GFR Collected: 07/07/2017 Status: F Source: [facility] 4:45 AM HEALTH SYSTEM REPOSITORY TYPE CODE TESTS RESULT OUT OF RANGE REFERENCE UNITS LAB GFRFN(LOINC >60mL/min/1.73m ) 2 eGFR >60 Result Comment: If the patient is , multiply the result by 1.210. Performed By: #### GFR #### [facility] [address] [place], [place] [address] ED PROV NOTE Observed: 07/07/2017 Status: COMPLETED Source: [place] 12:00 AM CLINIC OTHER CAMPUS REPOSITORY O ID: [id number] Author: Gamal Stratton Service: (none) Author Type: Physician Type: ED Provider Notes Filed: 08/07/2017 6:41 PM Note Text: [facility] - ER Admission - [place] PATIENT NAME: MAXX KNOTT CSN: [id number] DATE OF : 1950 SEX/AGE: M/66 PATIENT TYPE: I [place] [facility] [place] [facility] LOCATION: [id number] DATE OF SERVICE: 07/07/2017 REASON FOR CONSULT: Cardiac clearance for possible surgery. HISTORY: This is a 66-year-old male who is known to us with past history of coronary artery disease, status post CABG, was admitted with increasing abdominal pain and also has a larger sized parastomal hernia. The patient was also found to have diverticulosis. The patient has significant history of cardiac disease. He had an PA at age of 49 and 53. He is 66 years old and he had CABG in 2005 when he had 3 grafts placed. The patient apparently has been doing fairly well except for occasional episodes of chest pain, but had 1 chest pain yesterday prior to admission. The pain is substernal, nonexertional, and nonpleuritic. Patient's coronary factors include. 1. Hypertension. 2. Hyperlipidemia. 3. Obesity. Personal history is significant for a past history of 30 years, 30-pack smoking, possibly quit before CABG and currently smokes cigar. Family history is unremarkable. Past medical history is also significant. 1. Coronary risk factors as dictated. 2. Colostomy prolapse. 3. Questionable history of CHF, although his previous ejection fraction is 50% and has a grade 1 diastolic dysfunction. 4. The patient has a parastomal hernia without obstruction. PHYSICAL EXAMINATION: GENERAL: The patient is alert, oriented. VITAL SIGNS: Afebrile. Temperature 36.7, pulse rate is 94 and regular, respirations 18, blood pressure is 132/70, pulse ox 96%. NECK: JVP 0. No carotid bruits. Thyroid not enlarged. CARDIOVASCULAR SYSTEM: Revealed sinus rhythm and short systolic murmur. No gallop. No clicks. LUNGS: Showed minimally decreased breath sounds bilaterally. No wheezes. No crepitation. ABDOMEN: Soft, obese, nontender. Had stomal hernia. Bowel sounds present. EXTREMITIES: Peripheral extremities, no edema, no calf tenderness. Review of further systems unremarkable. LABORATORY DATA: Labs included sodium 136, potassium 3.8, BUN 12, creatinine 0.87, hematocrit 40, platelets 360,000. His echocardiogram suggested ejection fraction of 50% and mild LVH. IMPRESSION: 1. Chronic coronary artery disease, status post coronary artery bypass graft, currently stable. 2. Multiple coronary risk factors as dictated. 3. Large stomal hernia and possible diverticulosis. PLAN: 1. Plan for the patient is patient apparently may need extensive bowel surgery and abdominal surgery. He did not have any recent cardiac workup. We will suggest doing a Lexiscan Cardiolite for preop evaluation of surgery. 2. The patient had a past history of using Plavix, has not been taking it recently. Gamal Stratton MD Cardiology TS:melody /[id number] ED PROV NOTE Observed: 07/07/2017 Status: COMPLETED Source: [place] 12:00 AM CLINIC OTHER CAMPUS REPOSITORY HNO ID: [id number] Author: Gamal Stratton Service: (none) Author Type: Physician Type: ED Provider Notes Filed: 08/07/2017 6:41 PM Note Text: [facility] - ER Admission - [place] PATIENT NAME: MAXX KNOTT CSN: [id number] DATE OF : 1950 SEX/AGE: M/66 PATIENT TYPE: I HOSP [facility]: [facility] LOCATION: [id number] DATE OF SERVICE: 07/07/2017 HISTORY: Mr. Knott is a 66-year-old male. DICTATION ENDS HERE Gamal Stratton MD Cardiology TS:modl /[id number] ED PROV NOTE Observed: 07/06/2017 Status: COMPLETED Source: [place] 10:10 PM CLINIC OTHER CAMPUS REPOSITORY HNO ID: [id number] Author: Aneudy Prakash MD Service: Emergency Medicine Author Type: Physician Type: ED Provider Notes Filed: 07/07/2017 3:33 PM Note Text: ED Provider Note Patient Name: Maxx Knott SERVICE DATE: 07/06/17 History Patient presents with: Abdominal Pain: pt stoma herniated, sts happened a couple hours ago. +fever/chills, +n, -v, +watery stools in bag compared to normal. HPI Comments: 66-year-old man with past medical history significant for bowel perforation and Chad pouch formation, who presents to the emergency department with abdominal pain and concern for protrusion of his bowel into the ostomy bag. The patient states they this ration of bowel contents just started prior to arrival, but unknown as to what caused it. Around the same time, the patient states he also started to develop midsternal chest pressure, which he states feels similar to his prior chest pain with his heart attacks. She denies headache, lightheadedness/dizziness, acute visual changes, cough chills, fever, recent illness, sick contacts or recent travel, palpitations, shortness of breath, nausea, vomiting, changes in urinary habits, and changes in bowel habits. 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 - Peritonitis (HCC) PAST SURGICAL HISTORY Procedure Laterality Date - APPENDECTOMY HX - COLON SURGERY HX 07/2016 Chad's - HEART SURGERY HX triple bypass 10 yrs ago FAMILY HISTORY Problem Relation Age of Onset - Coronary Artery Disease Father - Hyperlipidemia Father Social History Social History Main Topics - Smoking status: Former Smoker Packs/day: 0.50 Years: 35.00 Types: Pipe, Cigarettes Quit date: 11/16/2016 - Smokeless tobacco: Never Used Comment: Quit cigarettes 11-16-16 now smoking 4 pipes as of 04-18-17 - Alcohol use No - Drug use: No - Sexual activity: Not Currently ALLERGIES Allergen Reactions - Altaseptic Unknown - Crestor [Rosuvastat* Myalgia - Hctz [Amiloride-Hyd* Swelling - Other [place]-3s Unknown brelinta - Ramipril Swelling - Simvastatin Myalgia - Voltaren [Diclofena* Unknown Review of Systems All other systems reviewed and are negative. Physical Exam BP 182/65 Pulse 60 Temp (Src) 97.7 (Temporal Artery) Resp 18 Ht 5' 8 (1.73m) Wt 200 lb (90.7kg) SpO2 96% BMI 30.42 kg/(m2). Physical Exam Constitutional: He is oriented to person, place, and time. He appears well-developed and well-nourished. No distress. HENT: Head: Normocephalic and atraumatic. Right Ear: External ear normal. Left Ear: External ear normal. Nose: Nose normal. Eyes: Conjunctivae and EOM are normal. Right eye exhibits no discharge. Left eye exhibits no discharge. Neck: Normal range of motion. No tracheal deviation present. Cardiovascular: Normal rate, regular rhythm, normal heart sounds and intact distal pulses. No murmur heard. Pulmonary/Chest: Effort normal and breath sounds normal. No respiratory distress. He has no wheezes. Abdominal: He exhibits no distension. There is tenderness. Patient does have obvious peristalsing loops of bowel within the confines of his ostomy bag. Musculoskeletal: Normal range of motion. He exhibits no edema. Neurological: He is alert and oriented to person, place, and time. Coordination normal. Skin: Skin is warm and dry. No rash noted. He is not diaphoretic. Psychiatric: He has a normal mood and affect. Nursing note and vitals reviewed. Diagnostic Testing ED Labs Ordered and Reviewed BASIC METABOLIC PANEL (AK,AV,EU,FV,HL,DEMARCO,MM,SP) - Abnormal; Notable for the following: Result Value Ref Range Glucose 114 (*) 70 - 99 mg/dL All other components within normal limits CBC + AUTO DIFF (AK,AV,EU,FV,HL,DEMARCO,MM,SP) - Abnormal; Notable for the following: RBC 4.54 (*) 4.63 - 6.08 mil/cmm RDW 14.5 (*) 11.6 - 14.4 % RDW-SD 47.7 (*) 36.1 - 45.8 fl Seg. Neut. # 6.78 (*) 1.78 - 5.38 thou/cmm Eosinophil # 0.02 (*) 0.04 - 0.54 thou/cmm All other components within normal limits PROTHROMBIN TIME / PT (AK,AV,EU,FV,HL,DEMARCO,MM,SP) ACTIVATED PTT (AK,AV,EU,FV,HL,DEMARCO,MM,SP) ECU TROPONIN I (AR ED) LACTIC ACID / LACTATE (AK,AV,EU,FV,HL,DEMARCO,MM,SP) MDRD GFR Procedures Medical Decision Making / ED Course IV placed. Pain medications given. EKG nondiagnostic for acute ST segment elevations or depressions. Attempted reduction took place by the surgery resident. CT scan of the abdomen and pelvis with IV contrast shows diverticulitis. Patient given ciprofloxacin and metronidazole. Bowel evisceration recurred after CT scan. Patient received additional dose of pain medication. Remainder of workup, especially cardiac workup, resulted unremarkable. Laboratory and imaging results were reviewed and discussed with the patient. My plan for admission was also discussed with the patient, who agreed with my plan, and voiced understanding. The patient remained clinically stable while in the ED. The patient was admitted without incident. ED Course Others' Documentation Comment By Time Attending Note I evaluated the patient and personally participated in the nelson components. I agree with the resident's findings and plan as documented, except as I have documented otherwise, and have discussed the case and management of the patient's care with the resident. 66 year old male presents with complaint of abdominal pain. Patient states earlier today he developed pain in his abdomen and noticed that his bowels had eviscerated through his ostomy site into his ostomy bag. He states around the same time he also started to develop some midsternal chest pain. He denies any shortness of breath. He has had a few episodes of vomiting. On my exam vitals are normal and stable. Patient is in no acute distress. Heart regular rate and rhythm, lungs clear to auscultation bilaterally, normal bowel sounds, abdomen diffusely tender. Bowels are visible inside the ostomy bag. Skin warm and dry, pulses in all 4 extremities, neurologically intact. EKG shows sinus rhythm with no sign of acute ischemia and troponin is undetectable. Chest x-ray is unremarkable. Surgery was consulted. Patient was given pain control and then they were able to reduce the bowels. Patient sent to CT for further evaluation of his abdominal pain. Signature: Aneudy Prakash MD Date: July 06, 2017 Time: 6:45 PM Aneudy Prakash MD 07/06 1848 Encounter Diagnosis ICD-10-CM 1. Evisceration of bowel K43.9 Plan The Patient was admitted Condition at time of disposition: improved and stable SIGNATURE: MD Fredy Rhodes (Res) MD Gavin Resident 07/06/17 2214 Aneudy Prakash MD 07/07/17 1533 ED NOTE Observed: 07/06/2017 Status: COMPLETED Source: [place] 7:21 PM [facility] REPOSITORY HNO ID: [id number] Author: Dian Toth) MITCHELL Tapia Service: Emergency Medicine Author Type: Registered Nurse Type: ED Notes Filed: 07/06/2017 7:21 PM Note Text: Stoma noted protruding in colostomy bag, beefy red. Stool noted in bag. ED NOTE Observed: 07/06/2017 Status: COMPLETED Source: [place] 7:05 PM [facility] OTHER CAMPUS REPOSITORY HNO ID: [id number] Author: Dian Toth) MITCHELL Tapia Service: Emergency Medicine Author Type: Registered Nurse Type: ED Notes Filed: 07/06/2017 7:15 PM Note Text: Report received from MITCHELL Fuller. Care assumed at this time. CT ABDOMEN AND PELVIS Observed: 07/06/2017 Status: F Source: [facility] WITH CONTRAST 6:10 PM HEALTH SYSTEM REPOSITORY Performed at [facility] APPROVED BY: Courtney Marley MD EXAMINATION: CT ABDOMEN AND PELVIS WITH IV CONTRAST CLINICAL HISTORY: Abdominal pain with nausea and vomiting. Patient has an ostomy site in the right midabdomen. TECHNIQUE: CT of the abdomen and pelvis was performed using standard technique, scanning from just above the dome of the diaphragm to the symphysis pubis. Sagittal and coronal reconstructions were performed. MQ: CTAP_3 Contrast: IV: 150 ml of Omnipaque 300 Oral: None. CT Radiation dose: Integrated Dose-length product (DLP) for this visit = 629 mGy*cm. CT Dose Reduction Employed: Automated exposure control (AEC) was used. COMPARISON: 05/16/2017 RESULT: Liver: No focal lesions within the liver. Biliary: No bile duct dilation. The gallbladder is minimally distended. Spleen: Unremarkable. Pancreas: Unremarkable. Adrenals: Left adrenal gland is diffusely thickened as can be seen with hyperplasia. The right adrenal gland is unremarkable. Kidneys: Several hypodensities noted in the left kidney. The largest measures 2.6 cm in diameter. No hydronephrosis. GI tract: Changes of acute diverticulitis involving the distal descending and proximal sigmoid colon where there are multiple diverticula, colonic wall thickening and adjacent edematous/inflammatory patricia nges. Presently no focal fluid collection to suggest abscess. No extraluminal air. No dilated bowel. 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 Lymph nodes: No abdominal or pelvic lymphadenopathy. Mesentery/Peritoneum: No ascites or mass. Retroperitoneum: No mass. Vasculature: The celiac axis and SMA are patent. The portal vein and branches, splenic vein, SMV, and hepatic veins are patent. Infrarenal abdominal aorta measures up to 3.1 cm in diameter. Stable. Pelvis: No mass, ascites or fluid collection. The prostate gland is enlarged. Bones/Soft Tissues: Advanced degenerative disc disease noted at L4-5 and L5 S1-1 lesser extent at L1-2 and L2-3. Lower thorax: No significant additional findings. IMPRESSION: Acute diverticulitis involving the distal descending and sigmoid colon. 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 Mild aneurysmal dilatation of the infrarenal abdominal aorta measuring up to 3.1 cm. ED NOTE Observed: 07/06/2017 Status: COMPLETED Source: [place] 5:06 PM CLINIC OTHER CAMPUS REPOSITORY HNO ID: [id number] Author: Alina KingRn) MITCHELL Han Service: Emergency Medicine Author Type: Registered Nurse Type: ED Notes Filed: 07/06/2017 5:06 PM Note Text: Transport called HEMOGRAM/DIFF Collected: 07/06/2017 Status: F Source: [facility] 4:08 PM HEALTH SYSTEM REPOSITORY TYPE CODE TESTS RESULT OUT OF REFERENCE UNITS RANGE LAB WBC(LOINC) 4.23-9.07 thou/cmm WBC 8.75 LAB RBC(LOINC) 4.63-6.08 mil/cmm Low RBC 4.54 LAB HGB(LOINC) 13.7-17.5 g/dL Hgb 14.0 LAB HCT(LOINC) 40.1-51.0 % Hct 40.6 LAB MCV(LOINC) 83.2-95.6 fl MCV 89.4 LAB MCH(LOINC) 25.7-32.2 pg MCH 30.8 LAB MCHC(LOINC 32.3-36.5 % ) MCHC 34.5 LAB RDW(LOINC) 11.6-14.4 % RDW High 14.5 LAB RDWSD(LOIN 36.1-45.8 fl C) RDW SD High 47.7 LAB PLT(LOINC) 141-365 thou/cmm Platelet 360 LAB MPV(LOINC) 8.7-12.0 fl MPV 10.5 LAB SEG(LOINC) % Seg Neutrophil 77.5 LAB IGRE(LOINC % ) Immature Grans 0.30 LAB LYMPH(LOIN % C) Lymphocyte 15.7 LAB MNO(LOINC) % Monocyte 6.1 LAB EOSIN(LOIN % C) Eosinophil 0.2 LAB BASO(LOINC % ) Basophil 0.2 LAB SEGN(LOINC 1.78-5.38 thou/cmm ) Abs. High Neut 6.78 LAB IGAB(LOINC 0.00-0.05 thou/cmm ) Abs Immature Grans 0.03 LAB LYMN(LOINC 0.84-2.85 thou/cmm ) Abs. Lymph 1.37 LAB MONON(LOIN 0.30-0.82 thou/cmm C) Abs. [place] 0.53 LAB EOSN(LOINC 0.04-0.54 thou/cmm ) Low Abs. Eosin 0.02 LAB BASON(LOIN 0.01-0.08 thou/cmm C) Abs. Baso 0.02 Performed By: #### CBCD1 #### [place] [address] BASIC PANEL Collected: 07/06/2017 Status: F Source: [facility] 4:08 PM HEALTH SYSTEM REPOSITORY TYPE CODE TESTS RESULT OUT OF REFERENCE UNITS RANGE LAB NA(LOINC) 136-145 mEq/L Sodium Blood 136 LAB K(LOINC) 3.5-5.1 mEq/L Potassium Blood 3.8 Result Comment: SPECIMEN SLIGHTLY HEMOLYZED LAB CL(LOINC) 98-107 mEq/L Chloride Blood 104 LAB CO2(LOINC) 21-32 mEq/L CO2 Blood 25 LAB GLU(LOINC) 70-99 mg/dL Glucose High Blood 114 LAB BUN(LOINC) 7-18 mg/dL BUN Blood 12 LAB CREA(LOINC) 0.67-1.17 mg/dL Creatinine Blood 0.87 LAB CA(LOINC) 8.5-10.1 mg/dL Calcium Blood 9.2 LAB ANGAP(LOINC) 8-16 Anion Gap 11 Performed By: #### P8 #### [place] [address] MDRD GFR Collected: 07/06/2017 Status: F Source: [facility] 4:08 HEALTH SYSTEM REPOSITORY TYPE CODE TESTS RESULT OUT OF RANGE REFERENCE UNITS LAB GFRFN(LOINC >60mL/min/1.73m ) 2 eGFR >60 Result Comment: If the patient is , multiply the result by 1.210. Performed By: #### GFR #### [place] [address] ECU TROPONIN I Collected: 07/06/2017 Status: F Source: [facility] 4:08 HEALTH SYSTEM REPOSITORY TYPE CODE TESTS RESULT OUT OF REFERENCE UNITS RANGE LAB ERTRP(LOINC 0.015-0.045 ng/ml ) ECU Troponin I < 0.015 Performed By: #### ERTRP #### [place] [address] PROTIME Collected: 07/06/2017 Status: F Source: [facility] 4:08 HEALTH SYSTEM REPOSITORY TYPE CODE TESTS RESULT OUT OF REFERENCE UNITS RANGE LAB PTI(LOINC) 9.3-11.9 sec Prothrombin Time 11.3 LAB INR(LOINC) INR 1.08 Result Comment: Standard Therapy 2.0-3.0 High Dose 2.5-3.5 Performed By: #### PT #### [facility] [address] [place] [address] ACTIVATED PTT Collected: 07/06/2017 Status: F Source: [facility] 4:08 PM HEALTH SYSTEM REPOSITORY TYPE CODE TESTS RESULT OUT OF REFERENCE UNITS RANGE LAB APTT(LOINC 22.0-34.0 sec ) Activated PTT 23.9 Performed By: #### APTT #### [facility] [address] [place] [address] LACTIC ACID Collected: 07/06/2017 Status: F Source: [facility] 4:08 PM HEALTH SYSTEM REPOSITORY TYPE CODE TESTS RESULT OUT OF REFERENCE UNITS RANGE LAB LAC(LOINC) 0.4-2.0 mEq/L Lactic Acid 1.0 Performed By: #### LAC #### [facility] [address] [place] [address] CHEST 1 VIEW Observed: 07/06/2017 Status: F Source: [facility] 3:52 PM HEALTH SYSTEM REPOSITORY Performed at [facility] APPROVED BY: Courtney Marley MD EXAM TITLE: CHEST 1 VIEW DATE: 07/06/2017 15:49 INDICATION: COPD. Cough. COMPARISON: 05/16/2017. Supine view the upper chest and supine view the lower chest show heart size to be upper limits of normal. Left-sided cardiac pacing device with leads in stable position. The lungs are clear of acute infiltrates and effusions. Eventration of the left hemidiaphragm is again noted. IMPRESSION: No acute findings radiographically. HISTORY PHYSICAL Observed: 07/06/2017 Status: COMPLETED Source: [place] 3:40 PM CLINIC OTHER CAMPUS REPOSITORY HNO ID: [id number] Author: Dylan Hartman Service: General Surgery Author Type: Resident Type: HANDP Filed: 07/06/2017 7:36 PM Note Text: Attestation signed by Manisha Manzano at 07/07/2017 11:45 AM ==== SURGERY STAFF: I have personally seen and evaluated this patient on 07/06/17 at 1800 (this is a late entry) and participated in the nelson components of this encounter. I discussed the management of this case with the residents and independently confirmed the findings and plan of care as documented either attached or in their separate note from today. Any corrections or additional notes are made as needed. Patient with known parastomal hernia who presented with increased abdominal pain and increased size of hernia. Plan after evaluation was to obtain CT abd/ pelvis. Patient has a significant cardiac history (such that the elective repair of his parastomal hernia was delayed due to cardiac issues) and he is non-toxic without peritonitis. No emergent operative intervention at this time. Will follow up CT results. ==== Manisha Manzano MD HISTORY AND PHYSICAL EXAMINATION / CONSULTATION NOTE SERVICE DATE: 07/06/2017 SERVICE TIME: 3:41 PM PRIMARY CARE PHYSICIAN: Bijan Perez MD Subjective CHIEF COMPLAINT: <principal problem not specified> HPI: This is a 66 year old male who presents with a prolapsed stoma. The patient states this happened today he states it is worse than previous prolapses he has had in the past. He is nauseated and hasn't eaten since it happened. He states he has had small amout of liquid discharge from the stoma since the prolapse. He has a significant heart history and was last seen by a straightening machine operator he thinks 3 months ago. From a previous note the patient is status post CABG x3 (AHYF-UEW-prfwdm, JRJ-RHX-ivpfwd, YDW-CD4-otstbptb); last PCI 01/2017?( hospital ): GREY to proximal LAD on DAPT; ischemic systolic congestive heart failure (EF 47%) on ARB, The initial surgery was for diverticulitis complicated by a perforation (July 2016), status post Chad?s with loop colostomy complicated by a stoma prolapse with a large parastomal hernia Of note, he was scheduled for elective surgery on 06/21/[address] Rios Yoo for reversal of the Chad?s. the patient was seen in the outpatient setting by Dr. Monge from Cardiology who recommended delaying surgery due to the need for DAPT for at least 3-6 months given recent NSTEMI at requiring PCI and GREY. 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 - Peritonitis ([facility]) PAST SURGICAL HISTORY Procedure Laterality Date - APPENDECTOMY HX - COLON SURGERY HX 07/2016 Chad's - HEART SURGERY HX triple bypass 10 yrs ago FAMILY HISTORY Problem Relation Age of Onset - Coronary Artery Disease Father - Hyperlipidemia Father Social History Substance Use Topics - Smoking status: Former Smoker Packs/day: 0.50 Years: 35.00 Types: Pipe, Cigarettes Quit date: 11/16/2016 - Smokeless tobacco: Never Used Comment: Quit cigarettes 11-16-16 now smoking 4 pipes as of 04-18-17 - Alcohol use No (Not in a hospital admission) ALLERGIES Allergen Reactions - Altaseptic Unknown - Crestor [Rosuvastat* Myalgia - Hctz [Amiloride-Hyd* Swelling - Other [place]-3s Unknown brelinta - Ramipril Swelling - Simvastatin Myalgia - Voltaren [Diclofena* Unknown COMPLETE REVIEW OF SYSTEMS: See HPI Objective PHYSICAL EXAM: GENERAL: Alert, Mild Distress, Cooperative SKIN: Skin color, texture, turgor normal. No rashes or lesions. LUNGS: Unlabored breathing on O2 Therapy: Room Air on sating at SpO2: 96 % CARDIAC: Regular rate and rhythm as above, ABDOMEN: No lymphadenopathy, mass noted large parastoma hernia with parastalsing bowel, Severe tenderness in stoma and obese. Hernia is reducible. Stoma is transverse loop colostomy. EXTREMITIES: ROM of all joint grossly normal: strength grossly normal bilaterally. No deformities noted. WOUND: not applicable BP 161/68 Pulse 96 Temp (Src) 98.1 (Oral) Resp 18 Ht 5' 8 (1.73m) Wt 200 lb (90.7kg) SpO2 96% BMI 30.42 kg/(m2). Temp (24hrs), Av.7 ?C (98.1 ?F), Min:36.7 ?C (98.1 ?F), Max:36.7 ?C (98.1 ?F) Body mass index is 30.41 kg/(m2). DATA: Diagnostic tests reviewed for today's visit: No results found for this or any previous visit (from the past 48 hour(s)).] Assessment/Plan This is a 66 year old male who presents with a prolapsing parastomal hernia and diverticulitis -cip/flag -npo -pain control -cardiology consult for preop workup -d/w dr ewing. SIGNATURE: Dylan Hartman MD PATIENT NAME: Maxx Knott DATE: July 06, 2017 TIME: 3:41 PM PAGER/CONTACT #: [phone] ED NOTE Observed: 07/06/2017 Status: COMPLETED Source: [place] 3:33 PM CLINIC OTHER CAMPUS REPOSITORY HNO ID: [id number] Author: Alina Toth) MITCHELL Han Service: Emergency Medicine Author Type: Registered Nurse Type: ED Notes Filed: 07/06/2017 3:33 PM Note Text: Surgery at bedside ED NOTE Observed: 07/06/2017 Status: COMPLETED Source: [place] 3:15 PM [facility] REPOSITORY HNO ID: [id number] Author: Alina KingRnBeth Han RN Service: Emergency Medicine Author Type: Registered Nurse Type: ED Notes Filed: 07/06/2017 3:48 PM Note Text: underground foreman, pulse ox and blood pressure cuff applied to patient. ED NOTE Observed: 07/06/2017 Status: COMPLETED Source: [place] 3:12 PM [facility] REPOSITORY HNO ID: [id number] Author: Alina KingRn) MITCHELL Han Service: Emergency Medicine Author Type: Registered Nurse Type: ED Notes Filed: 07/06/2017 3:13 PM Note Text: Stool noted in colostomy bag. Stoma protruding, pt states he was coughing and it happened Couple of hours ago ED TRIAGE NOTE Observed: 07/06/2017 Status: COMPLETED Source: [place] 2:38 PM [facility] REPOSITORY HNO ID: [id number] Author: ALEM Arzate (Pa) Service: Emergency Medicine Author Type: Physician Tool Grinder Operator Surface Type: ED Triage Notes Filed: 07/06/2017 2:44 PM Note Text: ED INTAKE NOTE Patient Name: Maxx Knott Service Date: 07/06/17 BRIEF HPI: 66-year-old male with chief complaint of stoma problem. He states that he had a stoma placed about one year ago. One to 2 hours ago he herniated his stoma. He is not sure how this happened. He has had it happen several times before. He denies any anticoagulation. Admits to pain and nausea. Denies vomiting. BRIEF EXAM: Awake and Alert RRR CTAB Bowel herniated into ostomy bag. Normal pink color. AMEZQUITA INTAKE WORKUP: Deferred SIGNATURE: Sergio Bang PA-C PROVIDER NOTE - ED Observed: 07/05/2017 Status: COMPLETED Source: [place] 6:30 PM HOSPITALS REPOSITORY Time Seen: ? Time Seen 05-Jul-2017 15:21 Triage Vital Signs: ? Triage Information Most recent Vital Sign Value Date Temp (F): 98.1 07-05-2017 15:10 Temp (C): 36.7 07-05-2017 15:10 Heart Rate (beats/min): 77 07-05-2017 15:10 Respirations (breaths/min): 18 07-05-2017 15:10 SpO2 (%): 96 07-05-2017 15:10 BP Systolic (mm Hg): 177 07-05-2017 15:10 BP Diastolic (mm Hg): 70 07-05-2017 15:10 History of Present Illness: This 66 year old Male presents with complaint(s) of abdominal pain(1)stoma pain and bag wont adhere(1) Allergy, Intolerance, Adverse Event: Allergies: ? Altace: Drug, Facial Swelling, Active ? Crestor: Drug, Facial Swelling, Active ? hydrochlorothiazide: Drug, Facial Swelling, Active ? simvastatin: Drug, Facial Swelling, Active ? atorvastatin: Drug, Facial Swelling, Active ? moxifloxacin: Drug, Hives/Urticaria, Active ? Voltaren: Drug, Hives/Urticaria, Active Outpatient Medication, Review/Add Medications: * Outpatient Medication Status not yet specified HISTORY ATTESTATION: ? Attestation I have reviewed and confirmed nurse's/medic's notes for patient's medications, allergies, medical history, and surgical history Lab Results: ? Results I have reviewed these laboratory results: Complete Blood Count + Differential 05-Jul-2017 16:07:00 Result Value White Blood Cell Count 8.6 Red Blood Cell Count 4.44 L HGB 14.1 HCT 40.7 L MCV 92 MCHC 34.6 PLT 333 RDW-CV 14.6 H Neutrophil % 72.5 Lymphocyte % 16.9 Monocyte % 8.4 Eosinophil % 1.9 Basophil % 0.3 Neutrophil Count 6.25 Lymphocyte Count 1.46 Monocyte Count 0.72 Eosinophil Count 0.16 Basophil Count 0.03 PT + INR, Plasma 05-Jul-2017 16:07:00 Result Value Prothrombin Time, Plasma 12.5 International Normalized Ratio, Plasma 1.1 Comprehensive Metabolic Panel 05-Jul-2017 16:07:00 Result Value Glucose, Serum 111 H NA 139 K 3.6 CL 104 Bicarbonate, Serum 27 Anion Gap, Serum 12 BUN 16 CREAT 1.05 GFR-Non >60 GFR- >60 Calcium, Serum 9.8 ALB 4.4 ALKP 75 T Pro 7.0 T Bili 0.3 Alanine Aminotransferase, Serum 15 Aspartate Transaminase, Serum 15 Lactate, Level 05-Jul-2017 16:07:00 Result Value Lactate, Level 1.3 Amylase, Serum 05-Jul-2017 16:07:00 Result Value Amylase, Serum 30 Lipase, Serum 05-Jul-2017 16:07:00 Result Value Lipase, Serum 9 Diagnostic Imaging Results Review: Radiology Results: ? Results Impression: CT APPEARANCE OF THE BOWEL IS ACTUALLY IMPROVED FROM THE LAST CT 21 JUNE 2017. SPECIFICALLY, NUMEROUS LONG SEGMENTS OF SMALL BOWEL WERE IN THE PERISTOMAL HERNIA. THE FINDING IS NO LONGER PRESENT. THE RIGHT UPPER QUADRANT OSTOMY APPEARS DANY A LOOP COLOSTOMY. NONE OF THE SMALL BOWEL OR COLON IS DILATED OR INFLAMED. THERE IS NO SIGN OF BOWEL OBSTRUCTION, ACUTE DIVERTICULITIS OR OTHER COLITIS. NO PERFORATION, ABSCESS OR FREE FLUID. INCIDENTAL FINDINGS SUCH ENLARGED PROSTATE, BILATERAL ADRENAL NODULES (LARGER AND MORE NUMEROUS ON THE LEFT) AND SIMPLE RENAL CYSTS ARE ALL UNCHANGED. OVERALL NO ACUTE FINDINGS IN THE ABDOMEN OR PELVIS CT Abdomen and Pelvis with Contrast [Jul 05 2017 5:57PM] PROGRESS NOTE: ? ED Course: HPI: Mr. Knott is a 66-year-old gentleman who presents to the emergency room complaining of pain at the site of his stoma onset today. The patient states the pain started gradually and he feels hardness surrounding the stoma site. He denies any nausea or vomiting. denies any fever. States his stoma bag has not been changed for the past week. Patient states he underwent abdominal surgery for diverticulitis approximately 1 year and a half ago resulting in a colostomy bag. Patient denies any chest pain or shortness of shortness of breath. Family HX: Denies any significant/pertinent family history. Social Hx: Denies ETOH or drug use. Review of Systems: Gen.: No weight loss, fatigue, anorexia, insomnia, fever. Eyes: No vision loss, double vision, drainage, eye pain. ENT: No pharyngitis, dry mouth. Cardiac: No chest pain, palpitations, syncope, near syncope. Pulmonary: No shortness of breath, cough, hemoptysis. Heme/lymph: No swollen glands, fever, bleeding. GI: Positive abdominal pain, change in bowel habits, melena, hematemesis, hematochezia, nausea, vomiting, diarrhea. : No discharge, dysuria, frequency, urgency, hematuria. Musculoskeletal: No limb pain, joint pain, joint swelling. Skin: No rashes. Review of systems is otherwise negative unless stated above or in history of present illness. Physical Exam: General: Vitals noted, no distress. Afebrile. Cardiac: Regular, rate, rhythm, no murmur. Pulmonary: Lungs clear bilaterally with good aeration. No adventitious breath sounds. Abdomen: Soft, positive colostomy bag noted stoma viable. No masses palpable. Stoma bag full of stool. No herniated bowel noted. Stool seeping from the side of the bag. Extremities: No peripheral edema. Negative Homans bilaterally, no cords. Neurovascularly intact throughout. Skin: No rash. MDM: Patient's colostomy bag was changed with a new one provided by the patient. A hard crusted stool noted on the skin surrounding the stoma. Patient is pain was addressed with the use of 1 mg of Dilaudid. Stool from colostomy bag was occult blood negative. Plan: Homegoing. I discussed the differential, results and discharge plan with the patient and/or family/friend/caregiver if present. I emphasized the importance of follow-up with the physician I referred them to in the timeframe recommended. I explained reasons for the patient to return to the Emergency Department. Questions were addressed. They understand return precautions and discharge instructions. The patient and/or family/friend/caregiver expressed understanding. Disposition: Discharge Diagnoses/Visit Problems: ? Abdominal pain: DISCHARGE DISPOSITION: ? Disposition: discharged ? Discharge Type: home CONDITION ON DISPO: ? Condition on Disposition stable MEDICATION RECONCILIATION/DISCHARGE MEDS: * Outpatient Medication Status not yet specified Attestation: CRITICAL CARE: ? Is This a Critically Ill Patient no Electronic Signatures: Benton Gonzales) (Signed 05-Jul-2017 18:40) Authored: Time Seen / ED Notes, Triage Vital Signs, History of Present Illness, Patient History, History Attestation, Lab Results Review, Diagnostic Imaging Results Review, Progress Note, ED Disposition (REQUIRED), Attestation Last Updated: 05-Jul-2017 18:40 by Benton Gonzales () References: 1. Data Referenced From Triage - ED 07/05/2017 3:10 PM CBC AND DIFFERENTIAL Collected: 07/05/2017 Status: F Source: [place] 4:07 PM HOSPITALS REPOSITORY TYPE CODE TESTS RESULT OUT OF REFERENCE UNITS RANGE LAB WBCR(LOINC 4.4 - 11.3 x10E9/L ) WBC 8.6 LAB RBCCT(LOIN 4.50 - 5.90 x10E12/L C) Low RBC 4.44 LAB HGB(LOINC) 13.5 - 17.5 g/dL HGB 14.1 LAB HCT(LOINC) 41.0 - 52.0 % Low HCT 40.7 LAB MCV(LOINC) 80 - 100 fL MCV 92 LAB MCHC2(LOIN 32.0 - 36.0 g/dL C) MCHC 34.6 LAB PLTCT(LOIN 150 - 450 x10E9/L C) PLT 333 LAB RDWCV(LOIN 11.5 - 14.5 % C) RDW-CV High 14.6 LAB NEUT(LOINC 40.0 - 80.0 % ) % NEUTROPHIL 72.5 LAB LYMPH(LOIN 13.0 - 44.0 % C) % LYMPHOCYTE 16.9 LAB MONO(LOINC 2.0 - 10.0 % ) % MONOCYTE 8.4 LAB EOS(LOINC) 0.0 - 6.0 % % EOSINOPHIL 1.9 LAB BASO(LOINC 0.0 - 2.0 % ) % BASOPHIL 0.3 LAB #NEUT(LOIN 1.20 - 7.70 x10E9/L C) NEUTROPHIL 6.25 Result Comment: Percent differential counts (%) should be interpreted in the context of the absolute cell counts (cells/L). LAB #LYMP(LOINC) 1.20 - x10E9/L 4.80 LYMPHOCYTE 1.46 LAB #MONO(LOINC) 0.10 - x10E9/L 1.00 MONOCYTE 0.72 LAB #EOS(LOINC) 0.00 - x10E9/L 0.70 EOSINOPHIL 0.16 LAB #BASO(LOINC) 0.00 - x10E9/L 0.10 BASOPHIL 0.03 Performed By: #### CBCDF #### [facility] [address] [facility] [place] [address] PT/INR Collected: 07/05/2017 Status: F Source: [place] 4:07 PM HOSPITALS REPOSITORY TYPE CODE TESTS RESULT OUT OF REFERENCE UNITS RANGE LAB PT(LOINC) 9.8 - 12.7 sec PROTHROMBIN TIME 12.5 LAB INR(LOINC) 0.9 - 1.1 PT, INR 1.1 Performed By: #### PTINR #### [facility] [address] [facility] [place] [address] LACTATE Collected: 07/05/2017 Status: F Source: [address] REPOSITORY TYPE CODE TESTS RESULT OUT OF REFERENCE UNITS RANGE LAB LACT(LOINC) 0.4 - 2.0 mmol/L LACTATE 1.3 Result Comment: Venipuncture immediately after or during the administration of Metamizole may lead to falsely low results. Testing should be performed immediately prior to Metamizole dosing. Performed By: #### LACT #### [facility] [address] [facility] [place] [address] AMYLASE Collected: 07/05/2017 Status: F Source: [place] [id number] [place] [address] REPOSITORY TYPE CODE TESTS RESULT OUT OF REFERENCE UNITS RANGE LAB VIANNEY(LOINC) 29 - 103 U/L AMYLASE 30 Performed By: #### VIANNEY #### [facility] [address] [facility] [place] [address] COMPREHENSIVE PANEL Collected: 07/05/2017 Status: F Source: [address] REPOSITORY TYPE CODE TESTS RESULT OUT OF REFERENCE UNITS RANGE LAB GLU(LOINC) 74 - 99 mg/dL GLUCOSE High 111 LAB SOD(LOINC) 136 - 145 mmol/L SODIUM 139 LAB K(LOINC) 3.5 - 5.3 mmol/L POTASSIUM 3.6 LAB CHLOR(LOIN 98 - 107 mmol/L C) CHLORIDE 104 LAB BIC(LOINC) 21 - 32 mmol/L BICARBONATE 27 LAB ANGAP(LOIN 10 - 20 mmol/L C) ANION GAP 12 LAB UREA(LOINC 6 - 23 mg/dL ) UREA NITROGEN 16 LAB CREA(LOINC 0.50 - 1.30 mg/dL ) CREATININE 1.05 LAB GFRFN(LOIN >60 mL/min/1.7 C) 3m2 GFR-NON AM. >60 LAB GFRAA(LOIN >60 mL/min/1.7 C) 3m2 GFR- AM. >60 Result Comment: CALCULATIONS OF ESTIMATED GFR ARE PERFORMED USING THE MDRD STUDY EQUATION FOR THE IDMS-TRACEABLE CREATININE METHODS. CLIN CHEM 2007;53:766-72 LAB CA(LOINC) 8.6 - 10.3 mg/dL CALCIUM 9.8 LAB ALB(LOINC) 3.4 - 5.0 g/dL ALBUMIN 4.4 LAB AP(LOINC) 33 - 136 U/L ALKALINE PHOSPHATASE 75 LAB TP(LOINC) 6.4 - 8.2 g/dL TOTAL PROTEIN 7.0 LAB AST(LOINC) 9 - 39 U/L AST 15 LAB TBILI(LOINC) 0.0 - 1.2 mg/dL BILIRUBIN,TOTAL 0.3 LAB ALT(LOINC) 10 - 52 U/L ALT 15 Result Comment: Patients treated with Sulfasalazine may generate falsely decreased results for ALT. Performed By: #### CMP #### [facility] [address] [facility] [place] [address] LIPASE Collected: 07/05/2017 Status: F Source: [place] [facility] REPOSIT[facility] TYPE CODE TESTS RESULT OUT OF REFERENCE UNITS RANGE LAB LIPAS(LOINC 9 - 82 U/L ) LIPASE 9 Result Comment: Venipuncture immediately after or during the administration of Metamizole may lead to falsely low results. Testing should be performed immediately prior to Metamizole dosing. Performed By: #### LIPAS #### [facility] [address] [facility] [place] [address] ED NOTE Observed: 06/25/2017 Status: COMPLETED Source: [place] 6:36 PM [facility] REPOSITORY HNO ID: [id number] Author: Sasha KingRn) MITCHELL Wilks Service: Emergency Medicine Author Type: Registered Nurse Type: ED Notes Filed: 06/25/2017 6:37 PM Note Text: Stoma nurse at bedside. Will continue to monitor. ED NOTE Observed: 06/25/2017 Status: COMPLETED Source: [place] 6:20 PM [facility] REPOSITORY HNO ID: [id number] Author: Sasha KingRn) Efe, RN Service: Emergency Medicine Author Type: Registered Nurse Type: ED Notes Filed: 06/25/2017 6:20 PM Note Text: Pt provided with snack box. Tolerating well. No other needs at this time. Pt waiting for stoma nurse. NAD noted at this time. Safety checks completed. No change in stoma size of pain. Will continue to monitor. ED NOTE Observed: 06/25/2017 Status: COMPLETED Source: [place] 6:18 PM [facility] REPOSITORY HNO ID: [id number] Author: Keena Toth) MITCHELL Ham Service: (none) Author Type: Registered Nurse Type: ED Notes Filed: 06/25/2017 6:18 PM Note Text: Pt provided snack box with MD Odell approval. ED NOTE Observed: 06/25/2017 Status: COMPLETED Source: [place] 4:12 PM [facility] REPOSITORY HNO ID: [id number] Author: Sasha (Rn) MITCHELL Wilks Service: Emergency Medicine Author Type: Registered Nurse Type: ED Notes Filed: 06/25/2017 4:12 PM Note Text: Pt ambulated to BR with stable gait. NAD noted at this time. Safety checks completed. Will continue to monitor. CONSULT PROG Observed: 06/25/2017 Status: COMPLETED Source: [place] 3:01 PM [facility] REPOSITORY HNO ID: [id number] Author: Fani Ernandez) Stanislaw Service: Colorectal Author Type: Fellow Type: Consult Progress Note Filed: 06/25/2017 4:47 PM Note Text: [facility] CONSULT SERVICE DATE: 06/25/2017 SERVICE TIME: 100 pm HPI Maxx Knott is a 66 year old male who is being seen at the request of Dr. Larose in consultation for advice and/or opinion regarding the management of Abdominal pain. 66 year old male, h/o transverse colostomy for diverticulitis done at [facility], was scheduled to have elective colostomy takedown by Dr. Yoo, and recently admitted for this, however was not cleared by cardiology as the patient had recent PA and could not be taken off dual antiplatelet therapy. He was discharged home just last week. Since then, he reports recurrent prolapse of his stoma and pain at the ostomy site, as well as some llq pain. No nausea or vomiting. His ostomy has been working well. 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 RESP: denies dyspnea, cough, asthma, bronchitis, emphysema, and URI < 2 weeks ago. CARD: recent PA, s/p PCI GI: diverticulitis : No history of disease. RENAL: Denies history of renal insufficiency. ENDO: denies history of diabetes, denies history of thyroid problems and denies history of steroid use HEME: patient denies bleeding, bruising easily, no history of anemia and no history of prior transfusion ONC: no history of cancer VTE: no history of DVT or PE RHEUM: patient denies any symptoms of SLE, PMR, AND/or RA PSYCHIATRIC: denies history of psychiatric illness and denies eating disorders, denies a history of abuse FAMILY HISTORY: FAMILY HISTORY Problem Relation Age of Onset - Coronary Artery Disease Father - Hyperlipidemia Father SOCIAL HISTORY: Social History Substance Use Topics - Smoking status: Former Smoker Packs/day: 0.50 Years: 35.00 Types: Pipe, Cigarettes Quit date: 11/16/2016 - Smokeless tobacco: Never Used Comment: Quit cigarettes 11-16-16 now smoking 4 pipes as of 04-18-17 - Alcohol use No MEDICATIONS: Prior to Admission Medications: acetaminophen (TYLENOL) 325 mg tablet Take 1-2 tablets by mouth every 4 hours as needed for Pain. isosorbide mononitrate ER (IMDUR) 60 mg 24 hr tablet Take 1 tablet by mouth once daily. atorvastatin (LIPITOR) 10 mg tablet Take 1 tablet by mouth daily at bedtime. cyclobenzaprine (FLEXERIL) 10 mg tablet Take 1 tablet by mouth daily at bedtime. gabapentin (NEURONTIN) 300 mg capsule Take 2 capsules by mouth daily at bedtime for 90 days. metoprolol succinate ER (TOPROL XL) 100 mg Tb24 Take 1 tablet by mouth once daily. QUEtiapine (SEROQUEL) 200 mg tablet Take 2 tablets by mouth daily at bedtime. clopidogrel (PLAVIX) 75 mg tablet Take 1 tablet by mouth once daily. COMPOUNDED PRESCRIPTION Adhesive Removers: ConvaTec Sensi- Care No Sting30/boxICD 10: Prolapsed Stoma K94.09 COMPOUNDED PRESCRIPTION One Piece Ostomy Pouch Item Type: Coloplast Sensura One Piece Non-Sterile with Window 3/8-4 1/2'' ?5/BoxICD 10: Prolapsed Stoma K94.09 COMPOUNDED PRESCRIPTION Paste: Convatec Stomahesive 1 tubeICD 10: Prolapsed Stoma K 94.09 COMPOUNDED PRESCRIPTION Powder: Convatec Stomahesive 1 bottleICD 10: K 94.09 COMPOUNDED PRESCRIPTION Skin Barrier: Hollihesive 4x4 5/boxICD 10: Prolapsed Stoma K 94.09 MULTIVIT WITH IRON,MINERALS (MULTIVITAMIN AND MINERALS ORAL) Take 1 capsule by mouth. albuterol HFA (PROVENTIL HFA, VENTOLIN HFA) 90 mcg/actuation inhaler Inhale as instructed. fluticasone (FLONASE) 50 mcg/actuation nasal spray Use in the nose. nitroglycerin sublingual (NITROSTAT) 0.[address] ONE(1) TABLET UNDER TONGUE NEEDED FOR CHEST PAIN. IF NO PAIN RELIEF CALL 911 losartan (COZAAR) 100 mg tablet Take 100 mg by mouth once daily. aspirin 81 mg chewable tablet Take 81 mg by mouth once daily. furosemide (LASIX) 20 mg tablet Take 40 mg by mouth once daily as needed. Current hospital medications: iv contrast (radiology procedure) INTRAVENOUS DIRECTED PRN enteric contrast (radiology procedure) ORAL DIRECTED PRN ALLERGIES: ALLERGIES Allergen Reactions - Altaseptic Unknown - Crestor [Rosuvastat* Myalgia - Hctz [Amiloride-Hyd* Swelling - Ramipril Swelling - Simvastatin Myalgia - Voltaren [Diclofena* Unknown PHYSICAL EXAM: Constitutional: Patient Vitals for the past 24 hrs: BP Temp Temp src Pulse Resp SpO2 Height Weight 06/25/17 1317 148/69 - - 72 16 99 % - - 06/25/17 1038 (!) 114/101 36.6 ?C (97.9 ?F) Oral 81 16 96 % 172.7 cm (5' 8) 90.7 kg (200 lb) GENERAL: No apparent distress SKIN: Skin color, texture, turgor normal. No rashes or lesions. HEENT: PERRL, EOMI, and normal dentition JVD: No jugulovenous distention CARDIAC: Normal S1 and S2; no rubs, murmurs, or gallops LUNGS: Lungs clear to auscultation. Good diaphragmatic excursion. ABDOMEN: soft, TTP on ostomy mucosa. Ostomy pink, prolapsed, easily reduced. Abdomen soft, mild ttp llq, and around stoma site. No rebound or guarding. EXTREMITIES: Extremities normal. No deformities, edema, clubbing or skin discoloration. NEURO: oriented x 3, PULSES: 2+ radial : not examined/not indicated. Assessment: 66 yo male, with chronically prolapsing transverse colostomy, recent PA on asa/plavix with chronic abdominal pain Plan: - As above, was scheduled for colectomy and colostomy takedown, however not cleared by cardiology at this time and must remain on dual anti platelet therapy. His ostomy is working well, and is chronically prolapsed and easily reducible. Instructed patient that this is not an urgent issue as long as his ostomy is pink and continues to work. - No acute findings on CT abdomen/pelvis. - Okay for discharge from surgical standpoint. - Needs refill on his plavix, this was relayed to Dr. Larose in the ER who said she would provide him with this. Can follow up with Dr. Yoo in one month to re-evaluate plan for elective stoma takedown/colon resection after cleared by cardiology. - case discussed with dr. yoo SIGNATURE: Fani Dover MD PATIENT NAME: Maxx Knott DATE: June 25, 2017 TIME: 3:01 PM ED NOTE Observed: 06/25/2017 Status: COMPLETED Source: [place] 2:40 PM [facility] REPOSITORY HNO ID: [id number] Author: Sasha KingRn) MITCHELL Wikls Service: Emergency Medicine Author Type: Registered Nurse Type: ED Notes Filed: 06/25/2017 6:18 PM Note Text: Pt continues to have abd pain, but states pain medication has helped some. Pt waiting for stoma nurse. No needs at this time. No change in stoma size or color. NAD noted at this time. Safety checks completed. Will continue to monitor. CT ABD/PEL W IVCON Observed: 06/25/2017 Status: F Source: [place] 2:24 PM [facility] REPOSITORY * * *Final Report* * * DATE OF EXAM: Jun 25 2017 2:24PM [facility] 0530 - CT ABD/PEL W IVCON / PROCEDURE REASON: Abdominal pain * * * * Physician Interpretation * * * * EXAMINATION: CT ABDOMEN AND PELVIS WITH IV CONTRAST CLINICAL HISTORY: Abdominal pain and increase in the size of stoma (according to the patient). He has a previous history of diverticulitis complicated by a perforation (July 2016), status post Chad?s with loop colostomy complicated by a stoma prolapse with a large parastomal hernia. TECHNIQUE: CT of the abdomen and pelvis was performed using standard technique, scanning from just above the dome of the diaphragm to the symphysis pubis. MQ: CTAP_3 Contrast: IV: 150 ml of Omnipaque 300 Oral: 700 ml of 50ML Omnipaque [address] Radiation dose: Integrated Dose-length product (DLP) for this visit = 649 mGy*cm. CT Dose Reduction Employed: Automated exposure control (AEC) COMPARISON: 05/03/2017 RESULT: Liver: No mass. Normal morphology Biliary: No bile duct dilation. Gallbladder is unremarkable. Spleen: No mass. No splenomegaly. 8 mm splenule (2:22). Pancreas: 8 mm hypoattenuating lesion within the pancreatic body, unchanged from, 12/17/2016, likely focal fat. No duct dilation. Adrenals: No mass of the right adrenal gland. Nodular thickening of the lateral gland measuring up to 2.4 cm (2:34), unchanged as compared to 12/17/2016. Kidneys: No mass, calculus or hydronephrosis. Indeterminate above water attenuation lesions bilaterally, the largest measuring 2.4 cm in the left interpolar region (2:47), unchanged. GI tract: No dilation or wall thickening. Status post diverting loop colostomy with a large parastomal hernia containing transverse colon and small bowel loops without evidence of obstruction. Overall size of the parastomal hernia/number of herniated loops is decreased when compared with the prior study. Descending and sigmoid colon diverticulosis without evidence of diverticulitis, unchanged. Lymph nodes: No abdominal or pelvic lymphadenopathy. Mesentery/Peritoneum: No ascites or mass. Retroperitoneum: No mass. Vasculature: The celiac axis and SMA are patent. The portal vein and branches, splenic vein, SMV, and hepatic veins are patent. Ectatic infrarenal abdominal aorta measuring up to 3.0 cm (2:50), unchanged. Pelvis: No mass, ascites or fluid collection. Enlarged prostate, unchanged. Bones/Soft Tissues: Degenerative changes. Lower thorax: Minimal bibasilar atelectasis opacities, likely/infiltrate, unchanged. IMPRESSION: EXPECTED POSTOPERATIVE CHANGES STATUS POST DIVERTING LOOP COLOSTOMY AND PARASTOMAL HERNIA WITHOUT EVIDENCE OF INTESTINAL OBSTRUCTION. SIZE OF THE PARASTOMAL HERNIA, WITH REGARD TO NUMBER OF HERNIATED LOOPS IN AMOUNT OF HERNIATED BOWEL IS DECREASED WHEN COMPARED WITH THE PRIOR STUDY. NO ACUTE ABDOMINAL PELVIC PATHOLOGY. Prep Room Supervisor: PSCB Transcribe Date/Time: Jun 25 2017 3:02P Dictated by : ANNY MURRELL MD This examination was interpreted and the report reviewed and electronically signed by: ABHAY ARNOLD MD on Jun 25 2017 3:58PM EST [id number] ED NOTE Observed: 06/25/2017 Status: COMPLETED Source: [place] 1:00 PM [facility] REPOSITORY HNO ID: [id number] Author: Sasha (Rn) MITCHELL Wilks Service: Emergency Medicine Author Type: Registered Nurse Type: ED Notes Filed: 06/25/2017 1:17 PM Note Text: Colorectal surgeon consult at bedside. Will continue to monitor. ED NOTE Observed: 06/25/2017 Status: COMPLETED Source: [place] 11:21 AM [facility] REPOSITORY HNO ID: [id number] Author: Jerry (Medic) Dwight Vasquez Service: Emergency Medicine Author Type: Bed Setter and Scraper Meat Type: ED Notes Filed: 06/25/2017 11:21 AM Note Text: Labs were drawn and sent. CBC AND DIFFERENTIAL Collected: 06/25/2017 Status: F Source: [place] 11:20 AM [facility] REPOSITORY TYPE CODE TESTS RESULT OUT OF REFERENCE UNITS RANGE LAB WBC 3.70-11.00 k/uL WBC 7.27 LAB RBC 4.20-6.00 m/uL RBC 4.59 LAB HGB 13.0-17.0 g/dL Hemoglobin 14.1 LAB HCT 39.0-51.0 % Hematocrit 41.8 LAB MCV 80.0-100.0 fL MCV 91.1 LAB MCH 26.0-34.0 pG MCH 30.7 LAB MCHC 30.5-36.0 g/dL MCHC 33.7 LAB RDWCV 11.5-15.0 % RDW-CV 14.6 LAB PLTCT 150-400 k/uL Platelet Count 297 LAB MPV 9.0-12.7 fL MPV 10.5 LAB ANEUT % Neut% 75.3 LAB AANEUT 1.45-7.50 k/uL Abs Neut 5.45 LAB ALYMP % Lymph% 17.3 LAB AALYMP 1.00-4.00 k/uL Abs Lymph 1.26 LAB AMONO % [place]% 5.9 LAB AAMONO <0.87 k/uL Abs [place] 0.43 LAB AEOS % Eosin% 1.1 LAB AAEOS <0.46 k/uL Abs Eosin 0.08 LAB ABASO % Baso% 0.4 LAB AABASO <0.11 k/uL Abs Baso 0.03 LAB AUNRBC 0 /100 WBC NRBCs 0.0 LAB ABNRBC <0.01 k/uL Absolute nRBC <0.01 LAB DTYP DTYPE Auto Diff Performed By: #### CBCDIF, CMP #### [facility] [address] [place], [place] [address] COMP METABOLIC PANEL Collected: 06/25/2017 Status: F Source: [place] 11:20 AM [facility] REPOSITORY TYPE CODE TESTS RESULT OUT OF REFERENCE UNITS RANGE LAB TP 6.3-8.0 g/dL Protein, Total 7.0 LAB ALB 3.9-4.9 g/dL Albumin 3.9 LAB CA 8.5-10.2 mg/dL Calcium, Total 9.5 LAB TBIL 0.2-1.3 mg/dL Bilirubin, Total 0.2 LAB ALKP 36-108 U/L Alkaline Phosphatase 87 LAB AST 14-40 U/L AST 27 LAB GLU 74-99 mg/dL Glucose High 129 Result Comment: The [place] Diabetes Association (ADA) provides guidance for cutoff values for fasting glucose and random glucose. The ADA defines fasting as no caloric intake for at least 8 hours. Fas ting plasma glucose results between 100 to 125 mg/dL indicate increased risk for diabetes (prediabetes). Fasting plasma glucose results greater than or equal to 126 mg/dL meet the criteria for diagnosis of diabetes. In the absence of unequivocal hyperglycemia, results should be confirmed by repeat testing. In a patient with classic symptoms of hyperglycemia or hyperglycemic crisis, random plasma glucose results greater than or equal to 200 mg/dL meet the criteria for diagnosis of diabetes. Reference: Standards of Medical Care in Diabetes 2016, [place] Diabetes Association. Diabetes Care. 2016.39(Suppl 1). LAB BUN 9-24 mg/dL BUN 11 LAB CRET 0.73-1.22 mg/dL Creatinine 0.93 LAB NA 136-144 mmol/L Sodium 140 LAB K 3.7-5.1 mmol/L Potassium 4.1 LAB CL 97-105 mmol/L Chloride 100 LAB CO2 22-30 mmol/L CO2 26 LAB AGAP 9-18 mmol/L Anion Gap 14 LAB ALT 10-54 U/L ALT 33 LAB GFRAA eGFR- Amer. >60 LAB GFRNAA . eGFR-All Other Races >60 Result Comment: eGFR (Estimated GFR) Units of measure: mL/min/1.73 meters squared eGFR is derived from the reexpressed MDRD Study equation using the following parameters: serum creatinine, age, gender and race. The creatinine assay has been calibrated to be traceable to IDMS. An eGFR <60 mL/min/1.73m2 for >3 months is consistent with chronic kidney disease. Refer to KDOQI guidelines for clinical interpretation. In patients with unstable renal function, e.g. those with acute kidney injury, the eGFR may not accurately reflect actual GFR. Performed By: #### CBCDIF, CMP #### [facility] [address] [place], [place] [address] ED PROV NOTE Observed: 06/25/2017 Status: COMPLETED Source: [place] 11:13 AM [facility] REPOSITORY HNO ID: [id number] Author: Milena Larose MD Service: Emergency Medicine Author Type: Physician Type: ED Provider Notes Filed: 06/26/2017 9:31 AM Note Text: ED Provider Note Patient Name: Maxx Knott SERVICE DATE: 06/25/17 History Patient presents with: Abdominal Pain HPI 66yo m H/O cad, aaa, divertiuclitis s/p diverting loop transverse colostomy recently admitted for stoma prolapse with large parastomal hernia p/w prolapsed stoma and abdominal pain. Stoma prolapsed again this AM. Associated discomfort at stoma site and LLQ abdominal pain. Nothing makes it better or worse. No N/V. Normal output of ostomy w/o blood/black. No urinary symptoms. H/o AAA (3.1cm) noted, no syncope, pre syncope, flank pain. 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 - Peritonitis ([facility]) PAST SURGICAL HISTORY Procedure Laterality Date - APPENDECTOMY HX - COLON SURGERY HX 07/2016 Chad's - HEART SURGERY HX triple bypass 10 yrs ago FAMILY HISTORY Problem Relation Age of Onset - Coronary Artery Disease Father - Hyperlipidemia Father Social History Social History Main Topics - Smoking status: Former Smoker Packs/day: 0.50 Years: 35.00 Types: Pipe, Cigarettes Quit date: 11/16/2016 - Smokeless tobacco: Never Used Comment: Quit cigarettes 11-16-16 now smoking 4 pipes as of 04-18-17 - Alcohol use No - Drug use: No - Sexual activity: Not Currently ALLERGIES Allergen Reactions - Altaseptic Unknown - Crestor [Rosuvastat* Myalgia - Hctz [Amiloride-Hyd* Swelling - Ramipril Swelling - Simvastatin Myalgia - Voltaren [Diclofena* Unknown Review of Systems Constitutional: Negative for chills and fever. HENT: Negative for sore throat and voice change. Eyes: Negative for pain and visual disturbance. Respiratory: Negative for cough and shortness of breath. Cardiovascular: Negative for chest pain and leg swelling. Gastrointestinal: Positive for abdominal pain. Negative for constipation, diarrhea, nausea and vomiting. Genitourinary: Negative for dysuria, frequency and hematuria. Musculoskeletal: Negative for back pain and neck pain. Skin: Negative for color change and rash. Neurological: Negative for weakness, numbness and headaches. All other systems reviewed and are negative. Physical Exam BP 176/78[MD Odell ok for D/C[ Pulse 72 Temp (Src) 97.6 (Oral) Resp 16 Ht 5' 8 (1.73m) Wt 200 lb (90.7kg) SpO2 96% BMI 30.42 kg/(m2). Physical Exam Constitutional: He appears well-developed and well-nourished. No distress. HENT: Head: Normocephalic and atraumatic. Right Ear: External ear normal. Left Ear: External ear normal. Eyes: Conjunctivae are normal. Right eye exhibits no discharge. Left eye exhibits no discharge. No scleral icterus. Neck: Normal range of motion. Neck supple. No JVD present. Cardiovascular: Normal rate, regular rhythm and normal heart sounds. Pulmonary/Chest: Effort normal. No respiratory distress. He has no wheezes. He has no rales. Abdominal: Soft. He exhibits no distension. There is tenderness. There is no rebound and no guarding. Extensive prolapse stoma, tissue appears pink and well perfused, soft. Uncomfortable but not exquisitely painful to touch, reducible but prolapses again easily. Output brown. Musculoskeletal: He exhibits no edema or deformity. Neurological: He is alert. He exhibits normal muscle tone. Skin: No rash noted. He is not diaphoretic. No erythema. Psychiatric: He has a normal mood and affect. His behavior is normal. Nursing note and vitals reviewed. Diagnostic Testing ED Labs Ordered and Reviewed COMP METABOLIC PANEL - Abnormal; Notable for the following: Result Value Ref Range Glucose 129 (*) 74 - 99 mg/dL All other components within normal limits CBC + DIFF Procedures Medical Decision Making / ED Course ED Course 66YO M p/w stomal prolapse, history of prior. Surgery to fix delayed 2/2 cardiac status at this time. No e/o tissue ischemia, GI bleed on exam. Think abdominal pain likely related to discomfort with stoma, have considered his AAA given additional LLQ pain however think this less likely -- will be getting imaging and eval. Think unlikely cholecystitis, is s/p appendectomy, no diarrhea do not think likely colitis, diverticulitis. Labs overall reassuring. Pain controlled after morphine. Colorectal has seen. Await imaging and recs. CT scan w/o e/o obstruction. Aorta 3.0cm, unchanged. Pt feels better after additional morphine. Discussed importance of continuing antiplatelets for eventual cardiac clearance for surgery, pt understands. DC home with out pt follow up, strict return precautions. Encounter Diagnosis ICD-10-CM 1. 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 Discharged home with verbal and written instructions. They were instructed to return as needed for persistent or worsening symptoms or any new concerns. Condition at time of disposition: improved SIGNATURE: MD Milena Earl MD 06/26/17 0931 ED NOTE Observed: 06/25/2017 Status: COMPLETED Source: [place] 10:40 AM [facility] REPOSITORY HNO ID: [id number] Author: Sasha (Rn) MITCHELL Wilks Service: Emergency Medicine Author Type: Registered Nurse Type: ED Notes Filed: 06/25/2017 11:25 AM Note Text: Pt presented to ED for ABD pain. Pt states he noticed his ostomy stoma is getting bigger and has been having increased pain. On assessment, stoma tender to touch. Stoma is pink and soft. Pt states stoma has doubled in size since this morning. Pt denies vomiting at this time and no increased stoma output. Pt does c/o nausea. NAD noted at this time. Safety checks completed. Will continue to monitor. [facility] Observed: 06/19/2017 Status: COMPLETED Source: [place] 6:41 PM [facility] REPOSITORY HNO ID: [id number] Author: Mata KingRn) MITCHELL Schultz Service: Wound/Ostomy Author Type: Registered Nurse Type: Allied Health Filed: 06/19/2017 6:49 PM Note Text: ET/WOCN Nursing Consult Topic: ET/WOCN Consultation Note ET Outcome: Patient for DC this date. Initial visit in the ER this past Sunday. The stoma remains prolapsed, red, moist and functioning. The pouching system applied remains intact. In speaking to Case Management, the patient will have visiting nursing upon return home, who will help with his needs. However, as patient is Medicare A AND B, he can not receive ostomy supplies from a supplier until home care is finished (current supplier of ostomy supplies). Spoke with Rose at [facility] who will follow up with patient to discuss his needs for the future. Patient states understanding to the above, script provided for the supplies he uses, and 2 weeks supplies of comparable system provided. ET's Next Scheduled Visit:06/22/17 Time Increment: 45 minutes MAIA Salinas, RN, CWOCN CASE MANAGEM Observed: 06/19/2017 Status: COMPLETED Source: [place] 2:50 PM [facility] REPOSITORY HNO ID: [id number] Author: Lupe Merino (Sw) Service: Care Management Author Type: Health Club Attendant Type: Care Mgt Progress Note Filed: 06/19/2017 2:54 PM Note Text: CARE MANAGEMENT DISCHARGE NOTE SERVICE DATE: 06/19/2017 SERVICE TIME: 2:50 PM LOS: 2 days Admission Date: 06/17/2017 DISCHARGE ARRANGEMENT (list agency and phone number) Home care Provider: [facility] CAREGIVER ASSESSMENT: Caregiver is ready, willing and able to meet the patient's needs as recommended by the inter-professional team? Yes Patient's transition needs and plan for meeting these needs: Pt to d/c home with HC. Does the patient have an acute stroke diagnosis, or has the patient had a stroke during this admission? No HANDOFF COMMUNICATION: HC listed above and PCP. TRANSPORTATION ARRANGEMENTS: Car Brother Pt is medically cleared for d/c. He is set up to begin HC for Ostomy on . Pt will d/c after dinner and his brother will pick his up via family auto. Stoma care also contacted supply agency to follow up and provide ostomy supplies once HC is discontinued at a TBD date. SIGNATURE: SOFIE WILLIS PATIENT NAME: Maxx Knott DATE: June 19, 2017 TIME: 2:50 PM PAGER/CONTACT #: [phone] [facility] Observed: 06/19/2017 Status: COMPLETED Source: [place] 12:32 PM [facility] REPOSITORY HNO ID: [id number] Author: Mata Schultz, RN Service: Wound/Ostomy Author Type: Registered Nurse Type: Allied Health Filed: 06/19/2017 12:37 PM Note Text: The [address] [address] OSTOMY SUPPLY ORDER FORM Patient: Maxx Knott Patient Address: [address] [place], [place] [id number] Gender: male Date of : 1950 Type of Stoma: Loop Transverse Colostomy Diagnosis: Diverticulitis w/o perforation K57.92 Item and Description Qty 30 Day Use Pouch: Dara: #[id number] Wafer: Dara: 4 cut to fit flat flange, #[id number] Adhesive Removers: ConvaTec Sensi-Care No Sting #[id number] Belt: Dara Large # [id number] Moldable Ring: Kareem Seal 2 # [id number] Powder: Convatec Stomahesive # [id number] Skin Barrier: Hollihesive 4x4 5/box #7700 10/Box 5/Box 30/Box 1 Belt 10/Box 1 Bottle 5/Box 2 Boxes 4 Boxes 1 Box 1 Belt 2 Boxes 1 Bottle 2/Boxes Refills: 12 Attending Physician: Dr. Yoo For immediate authorization, please contact the physician?s office. [facility] Nurse: EMIL Salinas Note: na SIGNATURE: Mata Schultz RN PATIENT NAME: Maxx Knott DATE: June 19, 2017 TIME: 12:33 PM CONTACT #: [phone] CNDS Observed: 06/19/2017 Status: COMPLETED Source: [place] 12:30 PM [facility] REPOSITORY O ID: [id number] Author: Chanel Cordero (Ivy) IVY Gonzales Service: Colorectal Author Type: Nurse Practitioner Type: Discharge Summaries Filed: 06/19/2017 12:31 PM Note Text: DISCHARGE SUMMARY PATIENT NAME: Maxx Knott ADMISSION DATE: 06/17/2017 DISCHARGE DATE: 06/19/2017 Attending Physician: Ro Yoo Primary Diagnosis: Stoma prolapse Reason for Hospitalization: The patient has a history of essential hypertension on Amlodipine 10 mg daily and losartan 100 mg daily; CAD, status post CABG x3 (MWWX-MBP-lzckcu, MAC-KXW-ehwviy, TNB-RM5-ziynjqcs); last PCI 01/2017 (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 The patient was transferred to the regular nursing floor from the emergency department for further evaluation of the prolapsed stoma. Of note, he was scheduled for elective surgery on 06/21/[address] Rios Yoo for reversal of the Chad?s. In lieu of this, medicine was consulted for pre-operative clearance. Of note, the patient was seen in the outpatient setting by Dr. Monge from Cardiology who recommended delaying surgery due to the need for DAPT for at least 3-6 months given recent NSTEMI at requiring PCI and GREY. Active Problems: Colostomy prolapse (HCC) Chest pain CHF (congestive heart failure) (HCC) CAD (coronary artery disease) HTN (hypertension) Parastomal hernia without obstruction or gangrene Resolved Problems: Hypocalcemia Hypernatremia Hypokalemia Operations During Hospitalization: None Procedures During Hospitalization: No procedures performed Hospital Course: Pain was controlled with oral and IV medication and the intake and output were closely monitored. The oral diet was advanced as tolerated. The patient was able to void while hospitalized. DVT prophylaxis was managed by Heparin 5000 units BID and intermittent compression stockings. Serum electrolytes were monitored with daily labs and replaced as needed. On interview, with internal medicine, the patient endorsed intermittent chest pain of variable duration even after recent PCI with stenting at . A pharmacologic stress test on 05/18/2017 showed an EF of 47% with motion abnormalities. In the setting of recent PCI, it is early to discontinue DAPT for elective surgery with no urgency per IM and cardiology. DAPT should be continued for now and the surgery should be postponed. Once pain was controlled with oral medication, a GI soft diet was tolerated, and the ostomy was functioning appropriately, he was deemed fit for discharge with home health care and outpatient follow-up as needed with Dr. Rios Yoo discuss potential surgery when cleared by internal medicine and cardiology. The patient will need a pre-operative colonoscopy and GGE prior to surgery to evaluate anatomy. Labs and Procedures Pending at Discharge: No pending results. Consulting Teams During Hospitalization: Cardiology (spoke with Dr. Ratna Scott whom instructed this author to have patient continue DAPT and outpatient cardiology follow-up) General internal medicine Care management Emergency department Nutrition therapy Patient Condition @ Discharge: Stable Discharge Disposition: Home with Home Health Care Postoperative Conditions: Not applicable Information Provided to Patient: The patient was provided a copy of the detailed discharge instructions. Discharge Medications: Current Discharge Medication List START taking these medications acetaminophen (TYLENOL) 325-650 mg Take 325-650 mg by mouth every 4 hours as needed for Pain. oxyCODONE IR (ROXICODONE) 5 mg Take 5 mg by mouth every 8 hours as needed for Pain. Earliest Fill Date: 06/19/17 Qty: 9 tablet Refills: 0 Associated Diagnoses:Colostomy prolapse (HCC) CONTINUE these medications which have NOT CHANGED isosorbide mononitrate ER (IMDUR) 60 mg Take 60 mg by mouth once daily. Qty: 30 tablet Refills: 0 atorvastatin (LIPITOR) 10 mg Take 10 mg by mouth daily at bedtime. Qty: 30 tablet Refills: 0 cyclobenzaprine (FLEXERIL) 10 mg Take 10 mg by mouth daily at bedtime. Qty: 90 tablet Refills: 0 Associated Diagnoses:Chronic low back pain, unspecified back pain laterality, with sciatica presence unspecified gabapentin (NEURONTIN) 600 mg Take 600 mg by mouth daily at bedtime. Qty: 90 capsule Refills: 0 Associated Diagnoses:Chronic low back pain, unspecified back pain laterality, with sciatica presence unspecified metoprolol succinate ER (TOPROL XL) 100 mg Take 100 mg by mouth once daily. Qty: 90 tablet Refills: 4 QUEtiapine (SEROquel) 400 mg Take 400 mg by mouth daily at bedtime. Qty: 60 tablet Refills: 0 clopidogrel (PLAVIX) 75 mg Take 75 mg by mouth once daily. Qty: 30 tablet Refills: 0 !! COMPOUNDED PRESCRIPTION Adhesive Removers: ConvaTec Sensi-Care No Sting 30/box ICD 10: Prolapsed Stoma K94.09 Qty: 1 Box Refills: 0 !! COMPOUNDED PRESCRIPTION One Piece Ostomy Pouch Item Type: Coloplast Sensura One Piece Non-Sterile with Window 07/05-4 1/2'' ?5/Box ICD 10: Prolapsed Stoma K94.09 Qty: 1 Box Refills: 0 !! COMPOUNDED PRESCRIPTION Paste: Convatec Stomahesive 1 tube ICD 10: Prolapsed Stoma K 94.09 Qty: 1 Tube Refills: 0 !! COMPOUNDED PRESCRIPTION Powder: Convatec Stomahesive 1 bottle ICD 10: K 94.09 Qty: 1 Bottle Refills: 0 !! COMPOUNDED PRESCRIPTION Skin Barrier: Hollihesive 4x4 5/box ICD 10: Prolapsed Stoma K 94.09 Qty: 1 Box Refills: 0 MULTIVIT WITH IRON,MINERALS (MULTIVITAMIN AND MINERALS ORAL) 1 capsule Take 1 capsule by mouth. albuterol HFA (PROVENTIL HFA, VENTOLIN HFA) 90 mcg/actuation inhaler Inhale as instructed. fluticasone (FLONASE) 50 mcg/actuation nasal spray Use in the nose. nitroglycerin sublingual (NITROSTAT) 0.[address] ONE(1) TABLET UNDER TONGUE NEEDED FOR CHEST PAIN. IF NO PAIN RELIEF CALL 911 Qty: 25 tablet Refills: 0 losartan (COZAAR) 100 mg Take 100 mg by mouth once daily. aspirin 81 mg Take 81 mg by mouth once daily. furosemide (LASIX) 40 mg Take 40 mg by mouth once daily as needed. !! - Potential duplicate medications found. Please discuss with provider. No future appointments. SIGNATURE: Chanel Gonzales CNP PAGER: [phone] DATE: June 19, 2017 TIME: 12:30 PM CASE MANAGEM Observed: 06/19/2017 Status: COMPLETED Source: [place] 12:07 PM [facility] REPOSITORY HNO ID: [id number] Author: Marlen Faith (Asst) Service: Care Management Author Type: Resource Center Tool Grinder Operator Surface Type: Care Mgt Progress Note Filed: 06/19/2017 12:07 PM Note Text: CARE MANAGEMENT PROGRESS NOTE SERVICE DATE: 06/19/2017 SERVICE TIME: 11:40 LOS: 2 days IM letter given to patient on 06/19/17. SIGNATURE: Asst Nasima PATIENT NAME: Maxx Knott DATE: June 19, 2017 TIME: 12:07 PM PAGER/CONTACT #: [phone] PROGRESS Observed: 06/19/2017 Status: COMPLETED Source: [place] 7:49 AM [facility] REPOSITORY HNO ID: [id number] Author: Ratna Donald (Fel) Service: Colorectal Author Type: Fellow Type: Progress Notes Filed: 06/19/2017 7:52 AM Note Text: COLORECTAL SURGERY POSTOP PROGRESS NOTE SERVICE DATE: 06/19/2017 SERVICE TIME: 6a POD #N/A Subjective INTERVAL HPI and PERTINENT ROS: no events overnight. Tolerated diet. Stoma functioning. Can not be off plavix/ASA for stents. MEDICATIONS: Current hospital medications: acetaminophen 325-650 mg tab(s) (TYLENOL) 325-650 mg ORAL q 4 H PRN oxyCODONE IR 5-10 mg tab(s) (ROXICODONE) 5-10 mg ORAL q 4 H PRN dextrose 5% in NaCl 0.45% with 20 mEq/L KCl iv infusion 30 mL/hr INTRAVENOUS CONTINUOUS clopidogrel 75 mg tab(s) (PLAVIX) 75 mg ORAL DAILY HYDROmorphone 0.2 mg injection (DILAUDID) 0.2 mg INTRAVENOUS q 4 H PRN atorvastatin 10 mg tab(s) (LIPITOR) 10 mg ORAL AT BEDTIME metoprolol succinate ER 100 mg tab(s) (TOPROL XL) 100 mg ORAL DAILY aspirin 81 mg chewable tab(s) 81 mg ORAL DAILY isosorbide mononitrate ER 60 mg tab(s) (IMDUR) 60 mg ORAL DAILY potassium chloride ER 20-40 mEq tab(s) (K-DUR, KLOR-CON) 20- 40 mEq ORAL PRN potassium chloride iv piggyback 20 mEq/100 mL 20-40 mEq INTRAVENOUS PRN magnesium sulfate iv piggyback 2 g in D5W 50 mL 2 g INTRAVENOUS PRN(NO DISPENSE) sodium phosphate 45 mmol in NaCl 0.9% 250 mL 45 mmol INTRAVENOUS PRN(NO DISPENSE) ondansetron (PF) 4 mg injection (ZOFRAN) 4 mg INTRAVENOUS q 6 H PRN heparin 5,000 Units injection 5,000 Units SUBCUTANEOUS q 12 H gabapentin 600 mg cap(s) (NEURONTIN) 600 mg ORAL AT BEDTIME QUEtiapine 400 mg tab(s) (SEROquel) 400 mg ORAL AT BEDTIME Objective PHYSICAL EXAM: BP 139/82 Pulse 63 Temp 37 ?C (98.6 ?F) (Oral) Resp 16 Ht 172.7 cm (5' 8) Wt 93 kg (205 lb) SpO2 93% BMI 31.17 kg/m2 Intake/Output Summary (Last 24 hours) at 06/19/17 0749 Last data filed at 06/19/17 0650 Gross per 24 hour Intake 1700 ml Output 800 ml Net 900 ml Abdomen soft, non-tender, non-distended and stoma is pink, prolapsed, +function LABS: CBC, Coags, BMP, Mg, Phos Recent Labs 06/19/17 0450 06/18/17 0642 06/17/17 2046 06/17/17 1007 WBC 9.30 10.58 -- 11.90* HB 13.3 16.2 -- 14.5 HCT 40.8 48.4 -- 42.7 PLT 221 247 -- 295 INR -- 1.0 -- -- APTT -- 25.9 -- -- NA 143 148* -- 145* K 3.8 3.4* -- 3.1* CHLOR 104 104 -- 104 CO2 27 28 -- 29 BUN 16 9 -- 14 CREAT 1.04 0.78 -- 0.79 GLUC 103* 84 -- 108* CA 8.8 9.7 -- 9.2 MG 2.0 1.9 -- -- P 3.0 -- 2.7 -- DATA: Diagnostic tests reviewed for today's visit: Most recent labs and imaging results. Assessment/Plan 66M with stoma prolapse from transverse colostomy at OSH in 2017 for sigmoid stricture from diverticular disease without signs of ischemia Can not be off dual anti platelet therapy Will discharge today Follow up with cardiology, medicine for future operative planning The stoma is prolapsed, but as long it is not ischemic and still functions it is alright to remain that way until a safe operative date can be scheduled ? POSTOP PLANS: Routine postop care: Encourage ambulation, Incentive Spirometry Ramirez: No Continued Need For Ramirez Catheterization DVT Prophylaxis: Intermittent pneumatic compression device (IPCD) Reason for Continuing Antibiotics: There is no need to continue antibiotics *A review of daily goals, interventions, and plan of care with the multidisciplinary team and patient has been conducted. The patient?s concerns have been addressed and he/she agrees to proceed with today?s plan of care. SIGNATURE: Ratna Donald MD PATIENT NAME: Maxx Knott DATE: June 19, 2017 TIME: 7:49 AM PAGER/CONTACT #: [phone] NURSING PROG Observed: 06/19/2017 Status: COMPLETED Source: [place] 7:32 AM [facility] REPOSITORY HNO ID: [id number] Author: Naomie (Rn) MITCHELL Edwards Service: (none) Author Type: Registered Nurse Type: Nursing Progress Note Filed: 06/19/2017 7:32 AM Note Text: Nursing Progress Note Patient Name: Maxx Knott Patient Location: H050 [id number]/[id number] Daily Note:Shira Gonzales notified of low uop 200 cc This note was completed by: Naomie Edwards RN CBC Collected: 06/19/2017 Status: F Source: [place] 4:50 AM [facility] REPOSITORY TYPE CODE TESTS RESULT OUT OF REFERENCE UNITS RANGE LAB WBC 3.70-11.00 k/uL WBC 9.30 LAB RBC 4.20-6.00 m/uL RBC 4.35 LAB HGB 13.0-17.0 g/dL Hemoglobin 13.3 LAB HCT 39.0-51.0 % Hematocrit 40.8 LAB MCV 80.0-100.0 fL MCV 93.8 LAB MCH 26.0-34.0 pG MCH 30.6 LAB MCHC 30.5-36.0 g/dL MCHC 32.6 LAB RDWCV 11.5-15.0 % RDW-CV 14.8 LAB PLTCT 150-400 k/uL Platelet Count 221 LAB MPV 9.0-12.7 fL MPV 10.6 LAB ABSNUC <0.01 k/uL Absolute nRBC <0.01 Performed By: #### CBC, BMP, MG1, PHOS #### [facility] [address] [place], [place] [address] BASIC METABOLIC PANL Collected: 06/19/2017 Status: F Source: [place] 4:50 AM [facility] REPOSITORY TYPE CODE TESTS RESULT OUT OF REFERENCE UNITS RANGE LAB GLU 74-99 mg/dL High Glucose 103 Result Comment: The [place] Diabetes Association (ADA) provides guidance for cutoff values for fasting glucose and random glucose. The ADA defines fasting as no caloric intake for at least 8 hours. Fas ting plasma glucose results between 100 to 125 mg/dL indicate increased risk for diabetes (prediabetes). Fasting plasma glucose results greater than or equal to 126 mg/dL meet the criteria for diagnosis of diabetes. In the absence of unequivocal hyperglycemia, results should be confirmed by repeat testing. In a patient with classic symptoms of hyperglycemia or hyperglycemic crisis, random plasma glucose results greater than or equal to 200 mg/dL meet the criteria for diagnosis of diabetes. Reference: Standards of Medical Care in Diabetes 2016, [place] Diabetes Association. Diabetes Care. 2016.39(Suppl 1). LAB BUN 9-24 mg/dL BUN 16 LAB CRET 0.73-1.22 mg/dL Creatinine 1.04 LAB NA 136-144 mmol/L Sodium 143 LAB K 3.7-5.1 mmol/L Potassium 3.8 LAB CL 97-105 mmol/L Chloride 104 LAB CO2 22-30 mmol/L CO2 27 LAB AGAP 9-18 mmol/L Anion Gap 12 LAB CA 8.5-10.2 mg/dL Calcium, Total 8.8 LAB GFRAA eGFR- Amer. >60 LAB GFRNAA . eGFR-All Other Races >60 Result Comment: eGFR (Estimated GFR) Units of measure: mL/min/1.73 meters squared eGFR is derived from the reexpressed MDRD Study equation using the following parameters: serum creatinine, age, gender and race. The creatinine assay has been calibrated to be traceable to IDMS. An eGFR <60 mL/min/1.73m2 for >3 months is consistent with chronic kidney disease. Refer to KDOQI guidelines for clinical interpretation. In patients with unstable renal function, e.g. those with acute kidney injury, the eGFR may not accurately reflect actual GFR. Performed By: #### CBC, BMP, MG1, PHOS #### [facility] [address] [place], [place] [address] MAGNESIUM Collected: 06/19/2017 Status: F Source: [place] 4:50 AM [facility] REPOSITORY TYPE CODE TESTS RESULT OUT OF REFERENCE UNITS RANGE LAB MG 1.7-2.3 mg/dL Magnesium 2.0 Performed By: #### CBC, BMP, MG1, PHOS #### [facility] [address] [place], [place] [address] PHOSPHORUS Collected: 06/19/2017 Status: F Source: [place] 4:50 AM [facility] REPOSITORY TYPE CODE TESTS RESULT OUT OF REFERENCE UNITS RANGE LAB PHOS 2.7-4.8 mg/dL Phosphorus 3.0 Performed By: #### CBC, BMP, MG1, PHOS #### [facility] [address], [place] [id number] TYPE AND SCREEN Collected: 06/19/2017 Status: F Source: [place] 4:50 AM [facility] REPOSITORY TYPE CODE TESTS RESULT OUT OF REFERENCE UNITS RANGE LAB %ABR O ABO/RH(D) POSITIVE LAB % Antibody NEG Screen Performed By: #### TSCR #### [facility] [address] [place] [address] NURSING PROG Observed: 06/18/2017 Status: COMPLETED Source: [place] 4:36 PM [facility] REPOSITORY HNO ID: [id number] Author: Milana (Rn) MITCHELL Paulson Service: (none) Author Type: Registered Nurse Type: Nursing Progress Note Filed: 06/18/2017 4:54 PM Note Text: Nursing Progress Note Patient Name: Maxx Knott Patient Location: [place] [address] Daily Note:Pt c/o abd pain, taking oxycodone and iv dilaudid prn. Pt denies any nausea. Spoke with Larry Gonzales CNP this morning about ASA with colonoscopy scheduled for tomorrow and OR , and PRINTING PRESS OPERATOR APPRENTICE said to hold ASA today. Tele started on pt, showing paced SR. Abd distended, ostomy prolapsed. Pt sleeping most of the day with CPAP on. 1545 Internal med was in to see pt, Spoke with Larry Gonzales CNP and saidOK to give plavix and ASA today (c-scope and surgery on hold for now). This note was completed by: Milana Paulson RN CASE MGT INIT Observed: 06/18/2017 Status: COMPLETED Source: [place] 2:23 PM [facility] RE[facility] HNO ID: [id number] Author: Lupe Merino (Sw) Service: Care Management Author Type: Health Club Attendant Type: Care Mgt Initial Assessment Filed: 06/18/2017 2:35 PM Note Text: CARE MANAGEMENT: ASSESSMENT AND DISCHARGE PLAN SERVICE DATE: 06/18/2017 SERVICE TIME: 2:23 PM RACQUEL WAS UNABLE TO SPEAK WITH PT. ATTEMPTED TO VISIT HIS ROOM X4. ASLEEP WITH CPAPP MACHINE. USED CHART TO COLLECT INFORMATION, INCLUDING CM ASSESSMENT FROM 05/16/17. WILL F/U WITH PT TOMORROW OR WHEN HE WAKES TODAY. PRIMARY CARE PHYSICIAN: Bijan Perez MD ADMISSION STATUS: Inpatient POTENTIAL DISCHARGE PLANS To Be Determined Patient/Home Comfort Advisor Stated Goals: N/A - Unable to assess at this time. Needs Prior to Discharge: To Be Determined Health Insurance: Medicare, [employer] Living Arrangement: Home Lives With: Brother Financial Resources: Retired Primary Contact: Extended Emergency Contact Information Primary Emergency Contact: Mary Knott Address: [address] [place] [address] [address] [place] [address] Mobile Relation: Brother Supportive: Yes Other Important Patient Contacts: None CAREGIVER ASSESSMENT: Caregiver is ready, willing and able to meet the patient's needs as recommended by the inter-professional team? No Caregiver Needed Patient's transition needs and plan for meeting these needs: TBD Does the patient have an acute stroke diagnosis, or has the patient had a stroke during this admission? No ADVANCE DIRECTIVES: Does Patient Have Advance Directives? N/A Does Patient Have Concerns About Advance Directives? No PRIOR TO ADMISSION: Baseline Mental Status: Unable to assess at at this time. Functional Status: Independent Does Patient Currently Receive Any Community Services or Home Care? Home Health Care Agency: [facility]; Phone: .; Previously Active. Equipment Prior to Admission: Bi-level Positive Airway Pressure/Continuous Positive Airway Pressure Cane - Straight Tub bench/chair Wound Care supplies Ostomy supplies and grab bars in shower HEALTH: Health Issues Impacting Discharge Plan: None Health Literacy Issues: No PSYCHOSOCIAL: Medication Adherence: Do you forget to take your medications? Unable to assess at this time. Have you ever stopped taking medications because you felt worse? Unable to assess at this time. Have you ever taken less of your medication than what was prescribed by your doctor? Unable to assess at this time. In the past 3 months, have you had issues obtaining one or more of your medications? Unable to assess at this time. Are you interested in bedside delivery of your medications? Yes Food Concerns: In the Last Month, Have You had Trouble Getting Food? Unable to assess at this time. During the Last Month, Have You Worried Whether Your Food Would Run Out Before You Had Enough Money to Buy More? Unable to assess at this time. Psychosocial Needs: None Unable to assess at this time. UTILIZATION: Last Admission Date: Previous admit date: 05/17/2017 Is this Within the Past 30 days? No Has the Patient Been in a Half-Way Facility in the Past 30 days? No FREEDOM OF CHOICE EXPLAINED: N/A HANDOFF COMMUNICATION: Primary Care Physician: Viral Ordonez SW WAS UNABLE TO SPEAK WITH PT. ATTEMPTED TO VISIT HIS ROOM X4. ASLEEP WITH CPAPP MACHINE. USED CHART TO COLLECT INFORMATION, INCLUDING CM ASSESSMENT FROM 05/16/17. WILL F/U WITH PT TOMORROW OR WHEN HE WAKES TODAY. SW to follow for any d/c needs. SIGNATURE: SOFIE WILLIS PATIENT NAME: Maxx Knott DATE: June 18, 2017 TIME: 2:23 PM PAGER/CONTACT #: [phone] CONSULT Observed: 06/18/2017 Status: COMPLETED Source: [place] 2:16 PM [facility] REPOSITORY [facility] ID: [id number] Author: Genna Clinton Service: General Internal Medicine Author Type: Physician Type: Consults Filed: 06/18/2017 7:54 PM Note Text: SERVICE HISTORY AND PHYSICAL EXAM If any questions arise please contact me at [phone] PATIENT NAME: Maxx Knott ; AGE: 3 1950; 66 year old [address] DATE OF ADMISSION: 06/17/2017 9:06 AM ATTENDING PHYSICIAN: Ro Yoo DATE OF SERVICE: June 18, 2017 TIME OF SERVICE: AM Rounds Admit Date: 06/17/2017 Length of Stay: 1 Reason for consult: Pre-op evaluation Maxx Knott is a 66 year old male who presents Patient has a PMH significant for: - Essential hypertension on Amlodipine 10 mg daily, losartan 100 mg daily - CAD s/p CABG x3 ([id number]-FFP-levlda, PJD-XLP-ugfiuc, LSB-GI6-bvjypmjo), Last PCI 01/2017 ( hospital ): GREY to proximal LAD on DAPT - ischemic systolic congestive heart failure, ischemic (EF 47%) on ARB, Metoprolol XL 100 mg daily and isosorbide mononitrate 60 mg daily - Diverticulitis c/b perforation (July 2016) s/p Chad with loop colostomy c/b stoma prolapse with large parastomal hernia with chronic pain on narcotics - Chronic back pain on Gabapentin 600 mg at bedtime. Who was admitted under [facility] for planned sigmoid colectomy and colostomy takedown on . Currently admitted for pre-op work up including colonoscopy. Medicine consulted for pre-op clearance. He has been seen in the outpatient setting by Dr. Monge from Cardiology who recommended to delay surgery due to his need for DAPT for at least 3-6 months given recent NSTEMI at requiring PCI and GREY. Labs here significant for no WBC, stable Hb of 16.2, normal PLTs. BMP with hypernatremia of 148, hypokalemia, SCr 0.79, normal liver enzymes. On interview has been endorsing intermittent chest pain of variable duration even after his recent PCI with stenting at . His pharmacologic stress test on 05/18 showed EF of 47% with motion abnormalities. Review of the Systems: (positives in bold, see HPI) Constitutional: fevers, chills, night sweats, fatigue, loss of appetite Head: headache, seizures Ears: hearing loss, tinnitus, vertigo Eyes: blurry vision, amaurosis fugax, diplopia, dry eyes Mouth: oral ulcers, dry mouth, sore throat Nose: nasal congestion, sinus congestion, rhinorrhea, epistaxis, nasal ulcers Cardio: chest pain, palpitations, leg swelling, orthopnea, lightheadedness, syncope, TAPIA Pulmonary: dyspnea, cough, wheezing, hemoptysis GI: nausea, vomiting, diarrhea, constipation, abdominal pain, hematochezia : dysuria, frequency, urgency, hematuria, foamy urine MSK: arthralgias, myalgias, lumbago, 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, pain while sleeping Neuro: one-sided weakness, paresthesias Endocrine: unintentional weight loss, weight gain, polyuria, polydipsia Sleep: unrefreshing sleep, difficulty falling asleep, difficulty staying asleep, snoring Psych: emotional lability, depression, anxiety, panic attacks, suicidal ideation ALLERGIES Allergen Reactions - Altaseptic Unknown - Crestor [Rosuvastat* Myalgia - Hctz [Amiloride-Hyd* Swelling - Ramipril Swelling - Simvastatin Myalgia - Voltaren [Diclofena* Unknown PAST MEDICAL HISTORY Diagnosis Date - AAA (abdominal aortic aneurysm) without rupture ([facility]) 05/13/[address] a/p - CAD (coronary artery disease) 2005 CAD s/p CABG x3 (QJCP-SLW-crtpkc, SDO-RNK-evkjln, EJY-YN1-vifjmbpw) (2006 at [facility]) - Current every day smoker PT SMOKES A PIPE - Diverticulitis Perforated Diverticulitis - Pacemaker 02/16/2017 s/p PPM () 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 - Peritonitis ([facility]) Prior to Admission: isosorbide mononitrate ER (IMDUR) 60 mg 24 hr tablet Take 1 tablet by mouth once daily. atorvastatin (LIPITOR) 10 mg tablet Take 1 tablet by mouth daily at bedtime. cyclobenzaprine (FLEXERIL) 10 mg tablet Take 1 tablet by mouth daily at bedtime. gabapentin (NEURONTIN) 300 mg capsule Take 2 capsules by mouth daily at bedtime for 90 days. metoprolol succinate ER (TOPROL XL) 100 mg Tb24 Take 1 tablet by mouth once daily. QUEtiapine (SEROQUEL) 200 mg tablet Take 2 tablets by mouth daily at bedtime. clopidogrel (PLAVIX) 75 mg tablet Take 1 tablet by mouth once daily. COMPOUNDED PRESCRIPTION Adhesive Removers: ConvaTec Sensi- Care No Sting30/boxICD 10: Prolapsed Stoma K94.09 COMPOUNDED PRESCRIPTION One Piece Ostomy Pouch Item Type: Coloplast Sensura One Piece Non-Sterile with Window 3-4 1/2'' ?5/BoxICD 10: Prolapsed Stoma K94.09 COMPOUNDED PRESCRIPTION Paste: Convatec Stomahesive 1 tubeICD 10: Prolapsed Stoma K 94.09 COMPOUNDED PRESCRIPTION Powder: Convatec Stomahesive 1 bottleICD 10: K 94.09 COMPOUNDED PRESCRIPTION Skin Barrier: Hollihesive 4x4 5/boxICD 10: Prolapsed Stoma K 94.09 MULTIVIT WITH IRON,MINERALS (MULTIVITAMIN AND MINERALS ORAL) Take 1 capsule by mouth. albuterol HFA (PROVENTIL HFA, VENTOLIN HFA) 90 mcg/actuation inhaler Inhale as instructed. fluticasone (FLONASE) 50 mcg/actuation nasal spray Use in the nose. nitroglycerin sublingual (NITROSTAT) 0.[address] ONE(1) TABLET UNDER TONGUE NEEDED FOR CHEST PAIN. IF NO PAIN RELIEF CALL 911 losartan (COZAAR) 100 mg tablet Take 100 mg by mouth once daily. aspirin 81 mg chewable tablet Take 81 mg by mouth once daily. furosemide (LASIX) 20 mg tablet Take 40 mg by mouth once daily as needed. Current: Current hospital medications: HYDROmorphone 0.2-0.4 mg injection (DILAUDID) 0.2-0.4 mg INTRAVENOUS q 4 H PRN acetaminophen 325-650 mg tab(s) (TYLENOL) 325-650 mg ORAL q 4 H PRN oxyCODONE IR 5-10 mg tab(s) (ROXICODONE) 5-10 mg ORAL q 4 H PRN dextrose 5% in NaCl 0.45% with 20 mEq/L KCl iv infusion 80 mL/hr INTRAVENOUS CONTINUOUS atorvastatin 10 mg tab(s) (LIPITOR) 10 mg ORAL AT BEDTIME metoprolol succinate ER 100 mg tab(s) (TOPROL XL) 100 mg ORAL DAILY aspirin 81 mg chewable tab(s) 81 mg ORAL DAILY isosorbide mononitrate ER 60 mg tab(s) (IMDUR) 60 mg ORAL DAILY potassium chloride ER 20-40 mEq tab(s) (K-DUR, KLOR-CON) 20- 40 mEq ORAL PRN potassium chloride iv piggyback 20 mEq/100 mL 20-40 mEq INTRAVENOUS PRN magnesium sulfate iv piggyback 2 g in D5W 50 mL 2 g INTRAVENOUS PRN(NO DISPENSE) sodium phosphate 45 mmol in NaCl 0.9% 250 mL 45 mmol INTRAVENOUS PRN(NO DISPENSE) ondansetron (PF) 4 mg injection (ZOFRAN) 4 mg INTRAVENOUS q 6 H PRN heparin 5,000 Units injection 5,000 Units SUBCUTANEOUS q 12 H gabapentin 600 mg cap(s) (NEURONTIN) 600 mg ORAL AT BEDTIME QUEtiapine 400 mg tab(s) (SEROquel) 400 mg ORAL AT BEDTIME PAST SURGICAL HISTORY Procedure Laterality Date - APPENDECTOMY HX - COLON SURGERY HX 07/2016 Chad's - HEART SURGERY HX triple bypass 10 yrs ago FAMILY HISTORY Problem Relation Age of Onset - Coronary Artery Disease Father - Hyperlipidemia Father Social History Marital status: Spouse name: Years of education: 12 Number of children: 3 Occupational History Occupation Employer [employer]* Retired Social History Main Topics Smoking status: Former Smoker Packs/day: 0.50 Years: 35.00 Types: Pipe, Cigarettes Quit date: 11/16/2016 Smokeless status: Never Used Comment: Quit cigarettes 11-16-16 now smoking 4 pipes as of 04-18-17 Alcohol use: No Drug use: No Sexual activity: Not Currently PHYSICAL EXAMINATION: 06/18/17 0537 06/18/17 0855 06/18/17 1100 06/18/17 1405 BP: 174/98 170/100 150/90 143/60 Pulse: 68 64 60 Resp: 16 16 Temp: 37 ?C (98.6 ?F) 36.9 ?C (98.5 ?F) TempSrc: Oral Oral SpO2: 97% 94% Weight: Height: BP 143/60 Pulse 60 Temp (Src) 98.5 (Oral) Resp 16 Ht 5' 8 (1.73m) Wt 205 lb (93.0kg) SpO2 94% BMI 31.18 kg/(m2). GENERAL: Well appearing, alert, in NAD SKIN: Skin color, texture, turgor normal, no suspicious rashes or lesions HEENT: Head normal. Anicteric sclera. Pupils are equally round and reactive to light. Extraocular movements are intact. NECK: Supple, no adenopathy; no carotid bruits LUNGS: Lungs clear to auscultation. HEART: RRR without murmur, gallop, or rubs. No ectopy ABDOMEN: + parastomal hernia, some tenderness on palpation. EXTREMITIES: No deformities, edema, skin discoloration MUSCULOSKELETAL: Muscular strength intact throughout. No joint swelling, deformity, or tenderness PULSES: Capillary refill <2secs, strong peripheral pulses NEURO: AAOx3, grossly non-focal. LABORATORY: CBC, Coags, BMP, Mg, Phos Recent Labs 06/18/17 0642 06/17/17 2046 06/17/17 1007 WBC 10.58 -- 11.90* HB 16.2 -- 14.5 HCT 48.4 -- 42.7 PLT 247 -- 295 INR 1.0 -- -- APTT 25.9 -- -- NA 148* -- 145* K 3.4* -- 3.1* CHLOR 104 -- 104 CO2 28 -- 29 BUN 9 -- 14 CREAT 0.78 -- 0.79 GLUC 84 -- 108* CA 9.7 -- 9.2 MG 1.9 -- -- P -- 2.7 -- DATA/IMAGING: See HPI ASSESSMENT AND PLAN: 66-year-old male with a past medical history significant for CAD s/p CABG x3 (GBTY-MWH-qmotzc, STZ-TNP-ifadjt, XZM-LE1-unsyorje) with his last PCI in 01/2016 ([facility]): GREY to proximal LAD, ischemic systolic congestive heart failure (EF 50%), diverticulitis complicated by a perforation (July 2016) s/p Chad with loop colostomy with chronic pain at the stoma site, on oxycodone and chronic back pain on Gabapentin. Medicine consulted for pre-op evaluation #Pre-op evaluation Pharmacologic stress test on 05/18/2017 with EF of 47% and abnormal global and regional function. No evidence of ischemia but moderate LCx distribution infarction representing 13% of the ventricle. Patient was not on DAPT brefly in early March due to allergy to Ticagrelor. Cardiology note from last admission: [facility] hospitalization 04/15-04/17/2017: 66 year old male with a history of CAD s/p CABG x3 (VQTN-GUV-mvtgks, MNF-GJE-yawapk, GON-NI7-gvbilaft) (2005 at [facility]), systolic congestive heart failure, ischemic (EF 50%), Diverticulitis c/b perforation (July 2016) s/p Chad with loop colostomy (with frequent ED visits for prolapsed stoma) who presents with a prolapsed stoma. Colorectal surgery reviewed his case and ultimately decided that he needs to follow up on an outpatient basis for further evaluation. For his chest pain he had cardiac markers followed up that were negative. Cardiology was consulted for pre-op clearance and no further intervention was advised. He was discharged to follow with cards and colorectal surgery on an outpatient basis. - Would recommend Cardiology evaluation while in patient. Patient needs to be on DAPT if we stop his regimen the risk for stent thrombosis increases and would not be safe. Also given findings of recent stress test. Discussed with staff Eleazar Gatica MD Internal Medicine, PGY-2 June 18, 2017 2:16 PM Pager: [phone] [facility] Staff addendum I have seen the patient with the resident (Dr. Moore). Nelson elements of history, physical exam, and plan were discussed and confirmed with the resident and the patient. A 66 yom, with PMHx of CAD and recent PCI on DAPT. Medicine consulted for preoperative eval. Given recent PCI, it is early to dc DAPT for surgery especially that per primary team ([facility]), the surgery is elective with no urgency. Based on above primary team where advised to consult cards if they want to proceed with surgery. Per primary team cards agrees that DAPT should be continued for now and the surgery will be postponed. Medicine will sign off. Please call with questions. Genna Clinton MD Staff, Hospital Medicine Dept. Pager # [phone] NUTRITION Observed: 06/18/2017 Status: COMPLETED Source: [place] 8:58 AM [facility] REPOSITORY O ID: [id number] Author: Fani Francis) JESSY Beck Service: Nutrition Therapy Author Type: Registered Dietitian Type: Nutrition Filed: 06/18/2017 12:27 PM Note Text: NUTRITION THERAPY INITIAL ASSESSMENT SERVICE DATE: 06/18/2017 SERVICE TIME: 10:35 AM RECOMMENDED MALNUTRITION DIAGNOSIS: NO MALNUTRITION IDENTIFIED NUTRITION CARE PLAN: Problem, Etiology and Signs/Symptoms: Altered GI function related to chronic condition as evidenced by NPO status. Intervention: Monitor diet advancement when medically appropriate -Rec for pt to be on GI soft-fiber controlled diet when diet advances Monitor and Evaluation: Nutrition care Indicator: Diet advancement, presence of bowel function Data Source: I/O's, crystal KEYS, pt/family report, lab reports Criteria for evaluation: oral diet advance in 2-3 days; pt to meet ~50% estimated needs Discharge Nutrition Recommendations: Diet: goal for GI soft Per HPI: 66 year old male s/p diverting loop transverse colostomy (07/2016) for diverticulitis with obstruction. Presenting with stoma prolapse and pain of several days duration. ? -Plan: outpatient for elective Hartmanns reversal and sigmoidectomy Present Diet Order: NPO Enteral Access: none Current intake: NPO for Cscope today Nutritional Intake Prior to Admission: >75% estimated energy needs GI symptoms: abdominal pain Abdominal Exam: not assessed Is the patient having any pain that is interfering with oral/enteral intake? No ANTHROPOMETRICS Height: 172.7 cm (5' 8) Admission Weight: 93 kg (205 lb) Current Weight: 93 kg (205 lb) Body mass index is 31.17 kg/(m2). overweight Weight has decreased by 7 kg over 9 months representing 6 % weight change (not significant) Last Wt 06/17/17 : 93 kg (205 lb) 05/16/17 : 93 kg (205 lb) 05/14/17 : 89 kg (196 lb 3.4 oz) 04/18/17 : 92.1 kg (203 lb) 04/18/17 : 91.6 kg (202 lb) 04/18/17 : 92.1 kg (203 lb) 04/15/17 : 90.7 kg (200 lb) 04/04/17 : 93.3 kg (205 lb 9.6 oz) 03/03/17 : 90.7 kg (200 lb) 01/31/17 : 90.7 kg (200 lb) 01/14/2017 93 kg (205 lb) 12/17/2016 95.3 kg (210 lb) 08/2016: 100 kg (220 lb) Usual Body Weight: 113.6kg [place] Body Weight: 70kg Dosing Weight: 93 kg Resting Metabolic Rate: 1693 Estimated kilocalorie needs: 1660-8058 kilocalories determined by 20-25 kcal/kg dosing wt Estimated protein needs: 77-91 grams determined by 1.1-1.3 g/kg [place] weight Estimated fluid needs: 3663-1187 milliliters based on 1 mL per kcal NUTRITION FOCUSED PHYSICAL EXAM: Subcutaneous Fat Loss Orbital No fat loss Triceps No fat loss Mid-axillary at the iliac crest Unable to determine at this time Muscle Loss Locations: Temporalis No muscle loss Pectoralis No muscle loss Deltoids No muscle loss Interosseous No muscle loss Latissimus dorsi, trapezius Unable to determine at this time Quadriceps No muscle loss Gastrocnemius Unable to determine at this time Potential micronutrient deficiency revealed in: No deficiency identified Edema: No Ascites: No Assessment of Functional Status: Functional capacity is unrelated to nutrition status Temperature Max in 24 hours: Temp (24hrs), Av.8 ?C (98.2 ?F), Min:36.3 ?C (97.3 ?F), Max:37.2 ?C (98.9 ?F) BP 170/100 Pulse 68 Temp 36.3 ?C (97.4 ?F) (Oral) Resp 16 Ht 172.7 cm (5' 8) Wt 93 kg (205 lb) SpO2 98% BMI 31.17 kg/m2 Recent Labs 06/18/17 0642 06/17/17 2046 06/17/17 1007 GLUC -- -- 108* BUN -- -- 14 CREAT -- -- 0.79 NA -- -- 145* K -- -- 3.1* CHLOR -- -- 104 CO2 -- -- 29 ALB -- -- 4.1 HB 16.2 -- 14.5 HCT 48.4 -- 42.7 WBC 10.58 -- 11.90* P -- 2.7 -- Potential Signs of Inflammation: hyperglycemia ALLERGIES Allergen Reactions - Altaseptic Unknown - Crestor [Rosuvastat* Myalgia - Hctz [Amiloride-Hyd* Swelling - Ramipril Swelling - Simvastatin Myalgia - Voltaren [Diclofena* Unknown Current Facility-Administered Medications: HYDROmorphone 0.2-0.4 mg injection (DILAUDID) 0.2-0.4 mg INTRAVENOUS q 4 H PRN acetaminophen 325-650 mg tab(s) (TYLENOL) 325-650 mg ORAL q 4 H PRN oxyCODONE IR 5-10 mg tab(s) (ROXICODONE) 5-10 mg ORAL q 4 H PRN dextrose 5% in NaCl 0.45% with 20 mEq/L KCl iv infusion 80 mL/hr INTRAVENOUS CONTINUOUS potassium chloride iv piggyback 20 mEq/100 mL 20 mEq INTRAVENOUS q 1 H atorvastatin 10 mg tab(s) (LIPITOR) 10 mg ORAL AT BEDTIME metoprolol succinate ER 100 mg tab(s) (TOPROL XL) 100 mg ORAL DAILY aspirin 81 mg chewable tab(s) 81 mg ORAL DAILY isosorbide mononitrate ER 60 mg tab(s) (IMDUR) 60 mg ORAL DAILY potassium chloride ER 20-40 mEq tab(s) (K-DUR, KLOR-CON) 20- 40 mEq ORAL PRN Or potassium chloride iv piggyback 20 mEq/100 mL 20-40 mEq INTRAVENOUS PRN magnesium sulfate iv piggyback 2 g in D5W 50 mL 2 g INTRAVENOUS PRN(NO DISPENSE) sodium phosphate 45 mmol in NaCl 0.9% 250 mL 45 mmol INTRAVENOUS PRN(NO DISPENSE) ondansetron (PF) 4 mg injection (ZOFRAN) 4 mg INTRAVENOUS q 6 H PRN heparin 5,000 Units injection 5,000 Units SUBCUTANEOUS q 12 H gabapentin 600 mg cap(s) (NEURONTIN) 600 mg ORAL AT BEDTIME QUEtiapine 400 mg tab(s) (SEROquel) 400 mg ORAL AT BEDTIME Intake/Output 06/17/17 0700 - 06/18/17 0659 Intake (ml) 2365 Output (ml) 3875 Net (ml) -1510 -Skin Intact per flowsheet - skin and wound documentation review MNT Billing Type: Initial Assess/15 min 4 units SIGNATURE: Fani Beck, MS, RD, LD PATIENT NAME: Maxx Knott DATE: June 18, 2017 TIME: 8:59 AM PAGER: [phone] PROGRESS Observed: 06/18/2017 Status: COMPLETED Source: [place] 8:12 AM [facility] REPOSITORY HNO ID: [id number] Author: Ratna Donald (Fel) Service: Colorectal Author Type: Fellow Type: Progress Notes Filed: 06/18/2017 8:16 AM Note Text: COLORECTAL SURGERY POSTOP PROGRESS NOTE SERVICE DATE: 06/18/2017 SERVICE TIME: 6a POD #N/A Subjective INTERVAL HPI and PERTINENT ROS: admitted with prolapsing stoma with parastomal hernia. Pain controlled. Tolerated PO- will get Cscope today so is NPO. On ASA, Plavix held. MEDICATIONS: Current hospital medications: HYDROmorphone 0.2-0.4 mg injection (DILAUDID) 0.2-0.4 mg INTRAVENOUS q 4 H PRN acetaminophen 325-650 mg tab(s) (TYLENOL) 325-650 mg ORAL q 4 H PRN oxyCODONE IR 5-10 mg tab(s) (ROXICODONE) 5-10 mg ORAL q 4 H PRN dextrose 5% in NaCl 0.45% with 20 mEq/L KCl iv infusion 80 mL/hr INTRAVENOUS CONTINUOUS potassium chloride iv piggyback 20 mEq/100 mL 20 mEq INTRAVENOUS q 1 H atorvastatin 10 mg tab(s) (LIPITOR) 10 mg ORAL AT BEDTIME metoprolol succinate ER 100 mg tab(s) (TOPROL XL) 100 mg ORAL DAILY aspirin 81 mg chewable tab(s) 81 mg ORAL DAILY isosorbide mononitrate ER 60 mg tab(s) (IMDUR) 60 mg ORAL DAILY potassium chloride ER 20-40 mEq tab(s) (K-DUR, KLOR-CON) 20- 40 mEq ORAL PRN potassium chloride iv piggyback 20 mEq/100 mL 20-40 mEq INTRAVENOUS PRN magnesium sulfate iv piggyback 2 g in D5W 50 mL 2 g INTRAVENOUS PRN(NO DISPENSE) sodium phosphate 45 mmol in NaCl 0.9% 250 mL 45 mmol INTRAVENOUS PRN(NO DISPENSE) ondansetron (PF) 4 mg injection (ZOFRAN) 4 mg INTRAVENOUS q 6 H PRN heparin 5,000 Units injection 5,000 Units SUBCUTANEOUS q 12 H gabapentin 600 mg cap(s) (NEURONTIN) 600 mg ORAL AT BEDTIME QUEtiapine 400 mg tab(s) (SEROquel) 400 mg ORAL AT BEDTIME Objective PHYSICAL EXAM: BP 174/98 Pulse 63 Temp 36.3 ?C (97.4 ?F) (Oral) Resp 16 Ht 172.7 cm (5' 8) Wt 93 kg (205 lb) SpO2 98% BMI 31.17 kg/m2 Intake/Output Summary (Last 24 hours) at 06/18/17 0812 Last data filed at 06/18/17 0650 Gross per 24 hour Intake 2365 ml Output 3875 ml Net -1510 ml Abdomen soft, non-tender, non-distended, stoma is pink and prolapsed- no necrosis LABS: CBC, Coags, BMP, Mg, Phos Recent Labs 06/17/17 2046 06/17/17 1007 WBC -- 11.90* HB -- 14.5 HCT -- 42.7 PLT -- 295 NA -- 145* K -- 3.1* CHLOR -- 104 CO2 -- 29 BUN -- 14 CREAT -- 0.79 GLUC -- 108* CA -- 9.2 P 2.7 -- DATA: Diagnostic tests reviewed for today's visit: Most recent labs and imaging results. Assessment/Plan 66M with stoma prolapse from transverse colostomy from OSH in 2017 without signs of ischemia Cscope today Significant cardiac history (stented, CABGx3, congestive heart failure preop work up- cont ASA, hold plavix Possible DC today/tomorrow to present as outpatient for elective Hartmanns reversal and sigmoidectomy POSTOP PLANS: Routine postop care: Encourage ambulation, Incentive Spirometry Ramirez: No Continued Need For Ramirez Catheterization DVT Prophylaxis: Intermittent pneumatic compression device (IPCD) Reason for Continuing Antibiotics: There is no need to continue antibiotics *A review of daily goals, interventions, and plan of care with the multidisciplinary team and patient has been conducted. The patient?s concerns have been addressed and he/she agrees to proceed with today?s plan of care. SIGNATURE: Ratna Donald MD PATIENT NAME: Maxx Knott DATE: June 18, 2017 TIME: 8:12 AM PAGER/CONTACT #: [phone] CBC AND DIFFERENTIAL Collected: 06/18/2017 Status: F Source: [place] 6:42 AM [facility] REPOSITORY TYPE CODE TESTS RESULT OUT OF RANGE REFERENCE UNITS LAB WBC 3.70-11.00 k/uL WBC 10.58 Result Comment: Less than optimal volume of specimen received and tested. LAB RBC 4.20-6.00 m/uL RBC 5.21 LAB HGB 13.0-17.0 g/dL Hemoglobin 16.2 LAB HCT 39.0-51.0 % Hematocrit 48.4 LAB MCV 80.0-100.0 fL MCV 92.9 LAB MCH 26.0-34.0 pG MCH 31.1 LAB MCHC 30.5-36.0 g/dL MCHC 33.5 LAB RDWCV 11.5-15.0 % RDW-CV 14.6 LAB PLTCT 150-400 k/uL Platelet Count 247 LAB MPV 9.0-12.7 fL MPV 10.9 LAB ANEUT % Neut% 63.2 LAB AANEUT 1.45-7.50 k/uL Abs Neut 6.69 LAB ALYMP % Lymph% 26.7 LAB AALYMP 1.00-4.00 k/uL Abs Lymph 2.82 LAB AMONO % [place]% 7.0 LAB AAMONO <0.87 k/uL Abs [place] 0.74 LAB AEOS % Eosin% 2.7 LAB AAEOS <0.46 k/uL Abs Eosin 0.29 LAB ABASO % Baso% 0.4 LAB AABASO <0.11 k/uL Abs Baso 0.04 LAB AUNRBC 0 /100 WBC NRBCs 0.0 LAB ABNRBC <0.01 k/uL Absolute nRBC <0.01 LAB DTYP DTYPE Auto Diff Performed By: #### CBCDIF, PT, PTT, BMP, MG1 #### [facility] [address] [place], [place] [address] PROTIME Collected: 06/18/2017 Status: F Source: [place] 6:42 [facility] REPOSITORY TYPE CODE TESTS RESULT OUT OF RANGE REFERENCE UNITS LAB PSEC 9.7-13.0 sec PT Sec 10.6 LAB INR 0.9-1.3 PT INR 1.0 Result Comment: Vitamin K Antagonist (VKA) Therapeutic Range: INR 2 to 3 (Target INR of 2.5) Note: For patients treated with VKA drugs, such as warfarin, the [place] [employer] 2012 Guideline recommends a therapeutic INR range of 2 to 3 (target INR of 2.5). This recommendation includes high-risk patients with antiphospholipid syndrome with previous arterial or venous thromboembolism, current-generation mechanical or bioprosthetic aortic heart valve replacement. Note: Patients with mechanical aortic valve replacement and additional risk factors for thromboembolic events (atrial fibrillation, previous thromboembolism, LV dysfunction, hypercoagulable conditions) or an older generation mechanical AVR (i.e., ball in-Cage) or any mechanical MVR should have a INR therapeutic range of 2.5 to 3.5 (target INR of 3). Lorelei GH, et al. Chest 2012, 141:7S-47S Teofilo RA, et al. [facility] 2017, 70: 252-289 Performed By: #### CBCDIF, PT, PTT, BMP, MG1 #### [facility] [address] [place], [place] [address] APTT Collected: 06/18/2017 Status: F Source: [place] 6:42 [facility] REPOSITORY TYPE CODE TESTS RESULT OUT OF RANGE REFERENCE UNITS LAB APTT 23.0-32.4 sec APTT 25.9 Result Comment: Unfractionated Heparin Therapeutic Ranges: Standard Heparin Nomogram: 53 to 78 seconds (anti-Xa level of 0.3 to 0.7 U/ml) Low Dose/ACS Nomogram: 49 to 67 seconds (anti-Xa level of 0.2 to 0.5 U/ml) Stroke Treatment Nomogram: 49 to 67 seconds (anti-Xa level of 0.2 to 0.5 U/ml) Note: The APTT therapeutic range has been determined for the current lot of laboratory APTT reagent in use throughout the [facility]. Performed By: #### CBCDIF, PT, PTT, BMP, MG1 #### [facility] [address] [place], [place] [address] BASIC METABOLIC PANL Collected: 06/18/2017 Status: F Source: [place] 6:42 [facility] REPOSITORY TYPE CODE TESTS RESULT OUT OF REFERENCE UNITS RANGE LAB GLU 74-99 mg/dL Glucose 84 Result Comment: The [place] Diabetes Association (ADA) provides guidance for cutoff values for fasting glucose and random glucose. The ADA defines fasting as no caloric intake for at least 8 hours. Fas ting plasma glucose results between 100 to 125 mg/dL indicate increased risk for diabetes (prediabetes). Fasting plasma glucose results greater than or equal to 126 mg/dL meet the criteria for diagnosis of diabetes. In the absence of unequivocal hyperglycemia, results should be confirmed by repeat testing. In a patient with classic symptoms of hyperglycemia or hyperglycemic crisis, random plasma glucose results greater than or equal to 200 mg/dL meet the criteria for diagnosis of diabetes. Reference: Standards of Medical Care in Diabetes 2016, [place] Diabetes Association. Diabetes Care. 2016.39(Suppl 1). LAB BUN 9-24 mg/dL BUN 9 LAB CRET 0.73-1.22 mg/dL Creatinine 0.78 LAB NA 136-144 mmol/L Sodium High 148 LAB K 3.7-5.1 mmol/L Low Potassium 3.4 LAB CL 97-105 mmol/L Chloride 104 LAB CO2 22-30 mmol/L CO2 28 LAB AGAP 9-18 mmol/L Anion Gap 16 LAB CA 8.5-10.2 mg/dL Calcium, Total 9.7 LAB GFRAA eGFR- Amer. >60 LAB GFRNAA . eGFR-All Other Races >60 Result Comment: eGFR (Estimated GFR) Units of measure: mL/min/1.73 meters squared eGFR is derived from the reexpressed MDRD Study equation using the following parameters: serum creatinine, age, gender and race. The creatinine assay has been calibrated to be traceable to IDMS. An eGFR <60 mL/min/1.73m2 for >3 months is consistent with chronic kidney disease. Refer to KDOQI guidelines for clinical interpretation. In patients with unstable renal function, e.g. those with acute kidney injury, the eGFR may not accurately reflect actual GFR. Performed By: #### CBCDIF, PT, PTT, BMP, MG1 #### [facility] [address] [place], [place] [address] MAGNESIUM Collected: 06/18/2017 Status: F Source: [place] 6:42 AM [facility] REPOSITORY TYPE CODE TESTS RESULT OUT OF REFERENCE UNITS RANGE LAB MG 1.7-2.3 mg/dL Magnesium 1.9 Performed By: #### CBCDIF, PT, PTT, BMP, MG1 #### [facility] [address] [place], [place] [address] NURSING PROG Observed: 06/18/2017 Status: COMPLETED Source: [place] 2:00 AM [facility] REPOSITORY HNO ID: [id number] Author: Judy KingRn) MITCHELL Keenan Service: (none) Author Type: Registered Nurse Type: Nursing Progress Note Filed: 06/18/2017 6:01 AM Note Text: Nursing Progress Note Topic of Note: Progress note Maxx Knott [id number] Patient denies nausea. He complains of pain to stoma site that is controlled with prn dilaudid and fentanyl. He is voiding adequate amounts of urine. RLQ ostomy with small amount of soft brown stool. Stoma is large and prolapsed. Call light in reach. Patient encouraged frequently to continue drinking golytely. 0030 [facility] process automation engineer notified of manual BP 164/72 and that patient only drank almost half of golytely. Patient woken up frequently and reminded to drink golytley. Patient will continue to try to drink golytely until 0200 as ordered by [facility] process automation engineer. 0200 [facility] process automation engineer aware patient didn't finish golytely prep 0600 [facility] process automation engineer notified of BP 174/98 manual and HR 63. This note was completed by: Judy Keenan RN PHOSPHORUS Collected: 06/17/2017 Status: F Source: [place] 8:46 PM [facility] REPOSITORY TYPE CODE TESTS RESULT OUT OF REFERENCE UNITS RANGE LAB PHOS 2.7-4.8 mg/dL Phosphorus 2.7 Performed By: #### PHOS #### [facility] [address] [place], [place] [address] NURSING PROG Observed: 06/17/2017 Status: COMPLETED Source: [place] 6:07 PM [facility] REPOSITORY HNO ID: [id number] Author: Malia KingRn) MITCHELL Perrin Service: Nursing Author Type: Registered Nurse Type: Nursing Progress Note Filed: 06/17/2017 6:08 PM Note Text: Nursing Progress Note Patient Name: Maxx Knott Patient Location: [place] [address] Transfer Note: Patient transferred into room/unit H50:26 in stable condition. Actions taken: No futher actions taken at this time. Will continue to monitor and check with patient. This note was completed by: Malia Perrin RN NURSING PROG Observed: 06/17/2017 Status: COMPLETED Source: [place] 4:59 PM [facility] REPOSITORY HNO ID: [id number] Author: Malia (Mitchell) MITCHELL Perrin Service: Nursing Author Type: Registered Nurse Type: Nursing Progress Note Filed: 06/17/2017 7:46 PM Note Text: Nursing Progress Note Patient Name: Maxx Knott Patient Location: [place] [address]- Daily Note: Notified Dr. Stacey Ivey ([facility] process automation engineer) regarding pt's prolapsed stoma. Dr. Ivey in to assess pt and notified the fellow. Pt reporting that his stoma generally is this prolapsed while standing but tends to recede somewhat while laying down. [address] Ivey asking for order for CPAP as pt stating he wears it at home. 1944 Notified [facility] process automation engineer with pt's elevated BP and pt's request for Neurontin and Seroquel to be ordered. This note was completed by: Malia Perrin RN PT ED Observed: 06/17/2017 Status: COMPLETED Source: [place] 4:25 PM [facility] REPOSITORY HNO ID: [id number] Author: Ccf Provider Service: (none) Author Type: Physician Type: Patient Education Filed: 06/17/2017 4:25 PM Note Text: [facility] Patient Education Report --------- Name: MAXX KNOTT Date: 06/17/2017 Time: 4:25 PM Patient Ordered Video: Inpatient Falls from [id number] via phone number [phone] at 4:25 PM PROGRESS Observed: 06/17/2017 Status: COMPLETED Source: [place] 2:25 PM [facility] REPOSITORY HNO ID: [id number] Author: Kailey (Rn) MITCHELL Maldonado Service: (none) Author Type: Registered Nurse Type: Progress Notes Filed: 06/17/2017 2:46 PM Note Text: ET/WOCN Nursing Consult Topic: ET/WOCN Consultation Note ET Outcome: The patient arrived to the ER (E15), 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 Skin treated with Domeboro's soaks X 15 minutes prior to replacing the pouch today. The patient was medicated for pain by staff nursing during WOC nursing visit. Scheduled for OR 06/21. ET's Next Scheduled Visit: , 06/22/17 (POD #1) Stoma Type: Loop colostomy Diameter: 3 1/2 oval shaped Location: LUQ Protrusion: Prolapsed Mucosal condition and color: Red and moist Mucocutaneous junction Intact Peristomal Skin: Erythema and Denuded tissue located from 10-2 o'clock and from 7-9 o'clock Location of Skin Impairment: see above Peristomal contour: Rounded with deep crease located at 5- 7 o'clock Supportive Tissue: Semisoft Character of output: did not observe output during the pouch change Emptying frequency per day: per patient Current pouching system: Pouch removed my physician earlier. Usual system is: Lyons 4 inch flat flange (cut to 2 1/2) with Adapt flat 4inch barrier ring, drainable pouch with clamp closure, belt Current wearing time: up to 7 days Recommendations: Skin Care: Domeboro's soaks with each pouch change, shave the peristomal hair with each pouch change, dust with stomahesive powder Pouching System: same as above except the aperture was cut to above stoma size, Brava Strip paste and Hollihesive wedges used to fill in the crease located between 5-7 o'clock, Hollihesive wedges placed circumferentially, caulked seams with Stomahesive paste and picture framed with Mefix tape, belt Wear Time: 3-4 days Midline Abdominal Incision: Healed scar Comment: n/a Time Increment: 1 hour 30 minutes Kailey Maldonado RN, BSN, CWOCN Trouble Shooter Pager [phone] (M-F 7-4 and 7-3 on weekends) Mata Schultz RN, BSN, ET, CWOCN NURSING PROG Observed: 06/17/2017 Status: COMPLETED Source: [place] 1:00 PM [facility] REPOSITORY HNO ID: [id number] Author: Malia KingRn) MITCHELL Perrin Service: Nursing Author Type: Registered Nurse Type: Nursing Progress Note Filed: 06/17/2017 4:59 PM Note Text: Nursing Progress Note Patient Name: Maxx Knott Patient Location: H050 021/H050-22 Transfer Note: Patient transferred into room/unit H50:22 in stable condition. Actions taken: Skin check performed with Mirtha CHERY and WNL. No futher actions taken at this time. Will continue to monitor and check with patient. This note was completed by: Malia Perrin RN ED NOTE Observed: 06/17/2017 Status: COMPLETED Source: [place] 11:59 AM [facility] REPOSITORY HNO ID: [id number] Author: Crystal KingRn) MITCHELL Gallagher Service: Emergency Medicine Author Type: Registered Nurse Type: ED Notes Filed: 06/17/2017 11:59 AM Note Text: Report given to Yo GONZALEZ. Pt requesting more pain medication. Will medicated, then send to the floor. Report called to the floor nurse. H50-22 ED NOTE Observed: 06/17/2017 Status: COMPLETED Source: [place] 11:30 AM [facility] REPOSITORY HNO ID: [id number] Author: Crystal Toth) MITCHELL Gallagher Service: Emergency Medicine Author Type: Registered Nurse Type: ED Notes Filed: 06/17/2017 11:59 AM Note Text: Inter stomal nurse in the room with the patient. ED NOTE Observed: 06/17/2017 Status: COMPLETED Source: [place] 10:20 AM [facility] REPOSITORY HNO ID: [id number] Author: Crystal Toth) MITCHELL Gallagher Service: Emergency Medicine Author Type: Registered Nurse Type: ED Notes Filed: 06/17/2017 10:46 AM Note Text: Pt does not want me to use the sugar. Waiting for surgery to come back in the room. ED NOTE Observed: 06/17/2017 Status: COMPLETED Source: [place] 10:14 AM [facility] REPOSITORY HNO ID: [id number] Author: Crystal Toth) MITCHELL Gallagher Service: Emergency Medicine Author Type: Registered Nurse Type: ED Notes Filed: 06/17/2017 10:16 AM Note Text: Pt states his abdominal pain started today. States his stoma as prolapsed and more swollen. Dr Casarez in the see the patient and colon/rectal surgery consulted. Spoke to stoma nurse who stated that the pt can change his bag on his own, though will come if we re consult them for further stoma problems. Dr Casarez asked that we take off the stoma bag and apply sugar to the stoma to shrink the size. Will medicated the pt for pain first. CBC AND DIFFERENTIAL Collected: 06/17/2017 Status: F Source: [place] 10:07 AM [facility] REPOSITORY TYPE CODE TESTS RESULT OUT OF REFERENCE UNITS RANGE LAB WBC 3.70-11.00 k/uL WBC High 11.90 LAB RBC 4.20-6.00 m/uL RBC 4.74 LAB HGB 13.0-17.0 g/dL Hemoglobin 14.5 LAB HCT 39.0-51.0 % Hematocrit 42.7 LAB MCV 80.0-100.0 fL MCV 90.1 LAB MCH 26.0-34.0 pG MCH 30.6 LAB MCHC 30.5-36.0 g/dL MCHC 34.0 LAB RDWCV 11.5-15.0 % RDW-CV 14.2 LAB PLTCT 150-400 k/uL Platelet Count 295 LAB MPV 9.0-12.7 fL MPV 10.7 LAB ANEUT % Neut% 74.4 LAB AANEUT 1.45-7.50 k/uL Abs Neut High 8.85 LAB ALYMP % Lymph% 17.6 LAB AALYMP 1.00-4.00 k/uL Abs Lymph 2.10 LAB AMONO % [place]% 6.4 LAB AAMONO <0.87 k/uL Abs [place] 0.76 LAB AEOS % Eosin% 1.3 LAB AAEOS <0.46 k/uL Abs Eosin 0.16 LAB ABASO % Baso% 0.3 LAB AABASO <0.11 k/uL Abs Baso 0.03 LAB AUNRBC 0 /100 WBC NRBCs 0.0 LAB ABNRBC <0.01 k/uL Absolute nRBC <0.01 LAB DTYP DTYPE Auto Diff Performed By: #### CBCDIF, CMP, LIPA #### [facility] [address] [place], [place] [address] COMP METABOLIC PANEL Collected: 06/17/2017 Status: F Source: [place] 10:07 AM [facility] REPOSITORY TYPE CODE TESTS RESULT OUT OF REFERENCE UNITS RANGE LAB TP 6.3-8.0 g/dL Protein, Total 7.1 LAB ALB 3.9-4.9 g/dL Albumin 4.1 LAB CA 8.5-10.2 mg/dL Calcium, Total 9.2 LAB TBIL 0.2-1.3 mg/dL Bilirubin, Total 0.2 LAB ALKP 36-108 U/L Alkaline Phosphatase 82 LAB AST 14-40 U/L AST 28 LAB GLU 74-99 mg/dL Glucose High 108 Result Comment: The [place] Diabetes Association (ADA) provides guidance for cutoff values for fasting glucose and random glucose. The ADA defines fasting as no caloric intake for at least 8 hours. Fas ting plasma glucose results between 100 to 125 mg/dL indicate increased risk for diabetes (prediabetes). Fasting plasma glucose results greater than or equal to 126 mg/dL meet the criteria for diagnosis of diabetes. In the absence of unequivocal hyperglycemia, results should be confirmed by repeat testing. In a patient with classic symptoms of hyperglycemia or hyperglycemic crisis, random plasma glucose results greater than or equal to 200 mg/dL meet the criteria for diagnosis of diabetes. Reference: Standards of Medical Care in Diabetes 2016, [place] Diabetes Association. Diabetes Care. 2016.39(Suppl 1). LAB BUN 9-24 mg/dL BUN 14 LAB CRET 0.73-1.22 mg/dL Creatinine 0.79 LAB NA 136-144 mmol/L Sodium High 145 LAB K 3.7-5.1 mmol/L Low Potassium 3.1 LAB CL 97-105 mmol/L Chloride 104 LAB CO2 22-30 mmol/L CO2 29 LAB AGAP 9-18 mmol/L Anion Gap 12 LAB ALT 10-54 U/L ALT 35 LAB GFRAA eGFR- Amer. >60 LAB GFRNAA . eGFR-All Other Races >60 Result Comment: eGFR (Estimated GFR) Units of measure: mL/min/1.73 meters squared eGFR is derived from the reexpressed MDRD Study equation using the following parameters: serum creatinine, age, gender and race. The creatinine assay has been calibrated to be traceable to IDMS. An eGFR <60 mL/min/1.73m2 for >3 months is consistent with chronic kidney disease. Refer to KDOQI guidelines for clinical interpretation. In patients with unstable renal function, e.g. those with acute kidney injury, the eGFR may not accurately reflect actual GFR. Performed By: #### CBCDIF, CMP, LIPA #### [facility] [address] [place], [place] [id number] LIPASE Collected: 06/17/2017 Status: F Source: [place] 10:07 AM [facility] REPOSITORY TYPE CODE TESTS RESULT OUT OF REFERENCE UNITS RANGE LAB LIPA 16-61 U/L Lipase 25 Performed By: #### CBCDIF, CMP, LIPA #### [facility] [address] [place], [place] [address] ED NOTE Observed: 06/17/2017 Status: COMPLETED Source: [place] 10:05 AM [facility] REPOSITORY HNO ID: [id number] Author: Mine Wesley Service: Emergency Medicine Author Type: Bed Setter and Scraper Meat Type: ED Notes Filed: 06/17/2017 10:12 AM Note Text: Labs were drawn and sent. ED NOTE Observed: 06/17/2017 Status: COMPLETED Source: [place] 10:00 AM [facility] REPOSITORY HNO ID: [id number] Author: Crystal Toth) MITCHELL Gallagher Service: Emergency Medicine Author Type: Registered Nurse Type: ED Notes Filed: 06/17/2017 10:46 AM Note Text: [place]/rectal surgery here to see the patient. Stoma is prolapsed. HISTORY PHYSICAL Observed: 06/17/2017 Status: COMPLETED Source: [place] 9:59 AM [facility] REPOSITORY HNO ID: [id number] Author: Jonas Contreras (Fel) Service: Colorectal Author Type: Fellow Type: HANDP Filed: 06/17/2017 10:57 AM Note Text: COLORECTAL SURGERY CONSULT SERVICE DATE: June 17, 2017 SERVICE TIME: 10:00 AM Requesting Service: Emergency Medicine Reason for consult: stoma prolapse ASSESSMENT AND PLAN: 66 year old male s/p diverting loop transverse colostomy (07/2016) for diverticulitis with obstruction. Presenting with stoma prolapse and pain of several days duration. He has struggled with this many times before now. - will attempt stoma reduction with Enterostomal Therapy present - admit for planned sigmoid colectomy and colostomy takedown on (hold Plavix, continue ASA) - will perform necessary preoperative work-up while inpatient, including colonoscopy ADDENDUM: Upon exam of stoma with pouch off, he has a large parastomal hernia and excoriation of skin superiorly. Prolapse is stable in size and chronic without evidence of ischemia to bowel. HPI: 66 year old male s/p diverting loop transverse colostomy (07/2016) for diverticulitis with obstruction. Presenting with stoma prolapse and pain of several days duration. He has struggled with this many times before now. ENDOSCOPY N/a RADIOLOGY 05/16 CT IMPRESSION: ? There is a colostomy in the right abdomen with a large parastomal hernia containing multiple loops of small bowel. ?There are no findings to suggest small bowel obstruction. ? ? ?There is a 2.5 cm low-attenuation lesion in the upper pole of the left kidney which measures greater than fluid density. ?This may represent a complicated renal ?cyst or solid renal mass. ?Further evaluation with nonemergent renal mass protocol CT or MRI is recommended. ? Stable nodular thickening of the left adrenal gland. ?Attention on follow-up studies is recommended. ? Diverticulosis of the descending and sigmoid colon. 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 - Peritonitis ([facility]) PSH: PAST SURGICAL HISTORY Procedure Laterality Date - APPENDECTOMY HX - COLON SURGERY HX 07/2016 [facility] - HEART SURGERY HX triple bypass 10 yrs ago FHx: FAMILY HISTORY Problem Relation Age of Onset - Coronary Artery Disease Father - Hyperlipidemia Father SocHx: Social History Substance Use Topics - Smoking status: Former Smoker Packs/day: 0.50 Years: 35.00 Types: Pipe, Cigarettes Quit date: 11/16/2016 - Smokeless tobacco: Never Used Comment: Quit cigarettes 11-16-16 now smoking 4 pipes as of 04-18-17 - Alcohol use No Home Meds: isosorbide mononitrate ER (IMDUR) 60 mg 24 hr tablet Take 1 tablet by mouth once daily. atorvastatin (LIPITOR) 10 mg tablet Take 1 tablet by mouth daily at bedtime. cyclobenzaprine (FLEXERIL) 10 mg tablet Take 1 tablet by mouth daily at bedtime. gabapentin (NEURONTIN) 300 mg capsule Take 2 capsules by mouth daily at bedtime for 90 days. metoprolol succinate ER (TOPROL XL) 100 mg Tb24 Take 1 tablet by mouth once daily. QUEtiapine (SEROQUEL) 200 mg tablet Take 2 tablets by mouth daily at bedtime. clopidogrel (PLAVIX) 75 mg tablet Take 1 tablet by mouth once daily. COMPOUNDED PRESCRIPTION Adhesive Removers: ConvaTec Sensi- Care No Sting30/boxICD 10: Prolapsed Stoma K94.09 COMPOUNDED PRESCRIPTION One Piece Ostomy Pouch Item Type: Coloplast Sensura One Piece Non-Sterile with Window 3/-4 1/2'' ?5/BoxICD 10: Prolapsed Stoma K94.09 COMPOUNDED PRESCRIPTION Paste: Convatec Stomahesive 1 tubeICD 10: Prolapsed Stoma K 94.09 COMPOUNDED PRESCRIPTION Powder: Convatec Stomahesive 1 bottleICD 10: K 94.09 COMPOUNDED PRESCRIPTION Skin Barrier: Hollihesive 4x4 5/boxICD 10: Prolapsed Stoma K 94.09 MULTIVIT WITH IRON,MINERALS (MULTIVITAMIN AND MINERALS ORAL) Take 1 capsule by mouth. albuterol HFA (PROVENTIL HFA, VENTOLIN HFA) 90 mcg/actuation inhaler Inhale as instructed. fluticasone (FLONASE) 50 mcg/actuation nasal spray Use in the nose. nitroglycerin sublingual (NITROSTAT) 0.[address] ONE(1) TABLET UNDER TONGUE NEEDED FOR CHEST PAIN. IF NO PAIN RELIEF CALL 911 losartan (COZAAR) 100 mg tablet Take 100 mg by mouth once daily. aspirin 81 mg chewable tablet Take 81 mg by mouth once daily. furosemide (LASIX) 20 mg tablet Take 40 mg by mouth once daily as needed. IP Meds: Current hospital medications: NaCl 0.9% 1,000 mL iv bolus 1,000 mL INTRAVENOUS ONCE morphine 4 mg injection 4 mg INTRAVENOUS ONCE acetaminophen 1,000 mg tab(s) (TYLENOL) 1,000 mg ORAL ONCE ALL: ALLERGIES Allergen Reactions - Altaseptic Unknown - Crestor [Rosuvastat* Myalgia - Hctz [Amiloride-Hyd* Swelling - Ramipril Swelling - Simvastatin Myalgia - Voltaren [Diclofena* Unknown ROS: GENERAL: No weight loss, malaise or fevers HEENT: Negative for frequent or significant headaches, No changes in hearing or vision, no nose bleeds or other nasal problems NECK: Negative for lumps, goiter, pain and significant neck swelling RESPIRATORY: Negative for cough, hemoptysis, wheezing, COPD, dyspnea or shortness of breath CARDIOVASCULAR: Negative for chest pain, leg swelling, hypertension, CHF or palpitations GI: as per HPI : No history of dysuria, frequency or incontinence MUSCULOSKELETAL: Negative for joint pain or swelling, back pain or muscle pain SKIN: Negative for lesions, rash, and itching PSYCH: Negative for sleep disturbance, mood disorder and recent psychosocial stressors NEURO: No history of headaches, syncope, paralysis, seizures or tremors PE: BP (!) 177/107 Pulse (!) 99 Temp 36.9 ?C (98.5 ?F) (Oral) Resp 20 Ht 172.7 cm (5' 8) Wt 93 kg (205 lb) SpO2 95% BMI 31.17 kg/m2 GENERAL: Alert, no distress, cooperative NEURO: Grossly normal cognition, motor function, and cranial nerves III-XII SKIN: Skin color, texture, turgor normal. No rashes or lesions. EYES: EOMI EARS: External ears normal, canals clear NECK: Supple, No thyromegaly BACK: Back symmetric LUNGS: Lungs clear to auscultation, Good diaphragmatic excursion CARDIAC: Normal S1 and S2; no rubs, murmurs, or gallops EXTREMITIES: Extremities normal, no deformities, edema, clubbing or skin discoloration. Good capillary refill. ABDOMEN: mildly distended, large stomal prolapse of transverse loop colostomy in upper abdomen ANORECTAL: deferred Labs: CBC, BMP, MG, PHOS Recent Labs 06/05/17 1222 05/19/17 0430 05/17/17 0351 05/16/17 1225 05/13/17 0315 04/03/17 2311 04/02/17 2301 04/02/17 0759 09/20/16 0722 WBC 11.82* -- 7.64 8.16 10.02 < > 7.33 7.94 7.11 < > -- HB 13.6 -- 14.4 15.5 15.3 < > 12.8* 13.2 14.4 < > -- HCT 40.2 -- 41.7 44.3 44.8 < > 39.8 40.6 42.8 < > -- PLT 347 -- 268 328 281 < > 237 246 243 < > -- NA 142 143 142 136 141 < > 142 145* 143 < > -- K 3.6* 4.1 3.7 3.1* 3.1* < > 4.2 4.6 4.9 < > -- CHLOR 101 108* 106 103 99 < > 102 106* 106* < > -- CO2 27 30 31 28 28 < > 25 25 22 < > -- BUN 20 27* 19* 12 14 < > 22 22 19 < > -- CREAT 1.11 1.05 0.99 0.72 0.89 < > 1.03 1.10 0.98 < > -- GLUC 108* 108* 100* 139* 122* < > 109* 120* 111* < > -- CA 9.5 8.8 8.7 9.5 9.4 < > 9.0 8.8 9.3 < > -- MG 2.3 -- 2.2 -- -- -- 2.1 2.2 2.7* < > 1.9 P -- -- -- -- -- -- 3.3 3.1 3.2 -- 2.3* < > = values in this interval not displayed. Liver Function, Amylase, AND Lipase Recent Labs 06/05/17 1222 05/16/17 1225 04/15/17 1815 04/01/17 1036 04/01/17 1034 03/03/17 1837 01/20/17 1638 01/14/17 0937 TPROT 7.2 7.9 7.0 -- 8.0 7.4 -- < > -- < > -- ALB 4.2 3.7 4.0 -- 4.5 4.3 -- < > -- < > -- ALT 28 49 17 -- 27 26 -- < > -- < > -- AST 16 32 13* -- 21 23 -- < > -- < > -- ALKPHOS 82 106 71 -- 84 81 -- < > -- < > -- TBILI 0.3 0.3 0.3 -- 0.3 0.2 -- < > -- < > -- LACT -- -- -- 1.7 -- 1.2 -- 1.1 -- 1.5 < > = values in this interval not displayed. [facility] Recent Labs 05/16/17 1225 04/16/17 0648 01/03/17 1600 11/03/16 1055 APTT -- 26.7 27.5 22.7 INR 1.11 1.1 1.1 1.10 ASSESSMENT AND PLAN: (located at the top of the note) All NEW consults seen by [facility]ORS fellow process automation engineer from 6A-6PM. Once consult is staffed, patient management decisions to be dictated by assigned CORS fellow and attending. Please refer to last CORS progress note to identify the name of provider to discuss management concerns. N. Jac Contreras M.D. Fellow in Colorectal Surgery [facility] Surgery [place] Pager# [phone] ED PROV NOTE Observed: 06/17/2017 Status: COMPLETED Source: [place] 9:52 AM [facility] REPOSITORY [facility] ID: [id number] Author: Jerry Casarez MD Service: Emergency Medicine Author Type: Physician Type: ED Provider Notes Filed: 06/17/2017 6:50 PM Note Text: ED Provider Note Patient Name: Maxx Knott SERVICE DATE: 06/17/17 History Patient presents with: Abdominal Pain: started this morning. Stoma Consult: protruding stoma since this morning. HPI 66 year old male with history of colostomy who complains of ostomy prolapse. He had the colostomy put in about 10 months ago for perforated diverticulitis. He states this morning he woke up in the ostomy was significant for a prolapsed into his ostomy bag. He had this happen about a week ago and it was reduced by colorectal surgery and there are plans for takedown of the ostomy soon. He has some pain described as a burning aching pain around the ostomy site but denies any nausea, fevers and states his output has been normal. He denies any urinary complaints. He has a mild slight associated headache. 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 - Peritonitis (HCC) PAST SURGICAL HISTORY Procedure Laterality Date - APPENDECTOMY HX - COLON SURGERY HX 07/2016 [facility] - HEART SURGERY HX triple bypass 10 yrs ago FAMILY HISTORY Problem Relation Age of Onset - Coronary Artery Disease Father - Hyperlipidemia Father Social History Social History Main Topics - Smoking status: Former Smoker Packs/day: 0.50 Years: 35.00 Types: Pipe, Cigarettes Quit date: 11/16/2016 - Smokeless tobacco: Never Used Comment: Quit cigarettes 11-16-16 now smoking 4 pipes as of 04-18-17 - Alcohol use No - Drug use: No - Sexual activity: Not Currently ALLERGIES Allergen Reactions - Altaseptic Unknown - Crestor [Rosuvastat* Myalgia - Hctz [Amiloride-Hyd* Swelling - Ramipril Swelling - Simvastatin Myalgia - Voltaren [Diclofena* Unknown Review of Systems Constitutional: Negative for chills and fever. HENT: Negative for congestion and sore throat. Eyes: Negative for visual disturbance. Respiratory: Negative for cough and shortness of breath. Cardiovascular: Negative for chest pain. Gastrointestinal: Positive for abdominal pain. Negative for diarrhea, nausea and vomiting. Genitourinary: Negative for dysuria. Musculoskeletal: Negative for back pain. Skin: Negative for rash. Neurological: Positive for headaches. Negative for speech difficulty, weakness and numbness. Physical Exam BP 177/107 Pulse 99 Temp (Src) 98.5 (Oral) Resp 20 Ht 5' 8 (1.73m) Wt 205 lb (93.0kg) SpO2 95% BMI 31.18 kg/(m2). Physical Exam Constitutional: He is oriented to person, place, and time. He appears well-developed and well-nourished. No distress. HENT: Head: Normocephalic and atraumatic. Mouth/Throat: Oropharynx is clear and moist. No oropharyngeal exudate. Eyes: Conjunctivae and EOM are normal. Pupils are equal, round, and reactive to light. Right eye exhibits no discharge. Left eye exhibits no discharge. No scleral icterus. Neck: Normal range of motion. No tracheal deviation present. Cardiovascular: Normal rate, regular rhythm, normal heart sounds and intact distal pulses. Exam reveals no gallop and no friction rub. No murmur heard. Pulmonary/Chest: Effort normal and breath sounds normal. No respiratory distress. Abdominal: Soft. He exhibits no distension. There is tenderness (mild tenderness around ostomy site). There is no rebound and no guarding. softball sized prolapsed ostomy into the ostomy bag. Musculoskeletal: Normal range of motion. Neurological: He is alert and oriented to person, place, and time. No cranial nerve deficit. Skin: Skin is warm and dry. He is not diaphoretic. Psychiatric: He has a normal mood and affect. Nursing note and vitals reviewed. Diagnostic Testing ED Labs Ordered and Reviewed CBC + DIFF - Abnormal; Notable for the following: Result Value Ref Range WBC 11.90 (*) 3.70 - 11.00 k/uL Abs Neut (ANC) 8.85 (*) 1.45 - 7.50 k/uL All other components within normal limits COMP METABOLIC PANEL - Abnormal; Notable for the following: Glucose 108 (*) 74 - 99 mg/dL Sodium 145 (*) 136 - 144 mmol/L Potassium 3.1 (*) 3.7 - 5.1 mmol/L All other components within normal limits LIPASE BLD Procedures Medical Decision Making / ED Course ED Course Differential Diagnosis 1. Ostomy prolapse 2. DANIEL 3. pancreatitis 4. dehydration 5. GERD ED Course and Medical Decision Making Vital signs were reviewed. Triage records were reviewed. Medical records were reviewed. Nursing notes were reviewed and incorporated. An IV was established and the patient was placed on the monitor. Initial workup consisted of CBC, CMP, lipase, surgery consult. Therapeutically the patient was given IV fluids and morphine IV. All lab results were reviewed and interpreted by myself as negative for acute pathology but I consulted with colorectal surgery who attended to his prolapse and admitted him as on review of prior records he's had multiple ED visits recently for ostomy prolapse recently and they planned to definitively take down the ostomy. The patient remained hemodynamically stable with good respiratory effort throughout the course of my shift in the ED. Encounter Diagnosis ICD-10-CM 1. 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 Generalized abdominal pain R10.84 Plan The Patient was ADMITTED TO: Colorectal surgery. Condition at time of disposition: stable SIGNATURE: MD Jerry Giles MD 06/17/17 1850 ED NOTE Observed: 06/17/2017 Status: COMPLETED Source: [place] 9:09 AM [facility] REPOSITORY HNO ID: [id number] Author: Mary KingRn) MITCHELL Larios Service: Emergency Medicine Author Type: Registered Nurse Type: ED Notes Filed: 06/17/2017 9:10 AM Note Text: Here for evaluation of abdominal pain and protruding stoma since this morning. Stoma filling ostomy bag. Denies any chest pain, sob, n/v, fever/chills. Speaking in complete sentences without difficulty; airway intact. States ostomy bag is also falling off since the stoma is so big. States 8/10 abdominal pain. ED NOTE Observed: 06/05/2017 Status: COMPLETED Source: [place] 3:56 PM [facility] REPOSITORY HNO ID: [id number] Author: Maribell KingRn) MITCHELL Kan Service: Emergency Medicine Author Type: Registered Nurse Type: ED Notes Filed: 06/05/2017 3:56 PM Note Text: Pt discharge instructions reviewed with patient. Pt does not verbalize any questions or concerns at this time. Pt discharge vitals obtained. Pt IV removed, intact. Pt discharge completed. ED NOTE Observed: 06/05/2017 Status: COMPLETED Source: [place] 3:43 PM [facility] REPOSITORY HNO ID: [id number] Author: Maribell Toth) MITCHELL Kan Service: Emergency Medicine Author Type: Registered Nurse Type: ED Notes Filed: 06/05/2017 3:43 PM Note Text: Pt oob to restroom stable gait PROGRESS Observed: 06/05/2017 Status: COMPLETED Source: [place] 3:23 PM [facility] REPOSITORY HNO ID: [id number] Author: Ro Yoo Service: Colorectal Author Type: Physician Type: Progress Notes Filed: 06/06/2017 5:25 PM Note Text: . COLORECTAL SURGERY HISTORY AND PHYSICAL EXAMINATION PLEASE DO NOT REMOVE FROM THE CHART OR MODIFY PRINTED COPY Patient Name: Maxx Knott PRIMARY CARE PHYSICIAN: Bijan Perez MD CHIEF COMPLAINT: Chest pain Stoma prolapse HPI: Admitted with chest pain, significant cardiac history (stented, CABGx3, congestive heart failure) since 10 am Also noticed recurrent stomal prolapse today with associated tenderness Denies vnausea/vomiting/bloating and stoma has been functioning normally Multiple ED visits with stomal prolapse. Background: - Loop colostomy (?transverse) July at [facility] for diverticulitis: no resection - Chronic stomal prolpase: due stoma closure + sigmoid resection by Dr Yoo end of this month - Recent similar admission with chest pain AND stoma prolapse: CT May 16 showed wide-necked parastomal hernia with multiple SB loops Currently feels well: stoma pain and chest pain subsided, feels hungry++ Pertinent Physical Findings: BP 161/76 Pulse 64 Temp 36.5 ?C (97.7 ?F) (Oral) Resp 20 SpO2 98% Comfortable at rest Abdomen Soft, non-distended, no focal tenderness Large R sided parastomal hernia with significant prolapse - soft and reducible - mucosa healthy - copious normal soft stool in bag (last emptied this morning) Assessment: Chronic stomal prolapse: functioning, mucosa healthy, reducible. No evidence of incarceration/strangulation Similar appearances (degree of prolapse) on CT from a couple weeks ago PLAN: No intervention required at present Await elective closure + resection Warned to return if symptoms progress Dr Charly Ceballos MD PhD Fellow, Colorectal Surgery Pager [phone] June 05, 2017 3:23 PM PAST MEDICAL HISTORY: PAST MEDICAL HISTORY Diagnosis Date - AAA (abdominal aortic aneurysm) without rupture (HCC) 05/13/[address] a/p - CAD (coronary artery disease) 2005 CAD s/p CABG x3 (ZSPH-EDU-dktbxv, FSW-DXX-fqupvm, BDC-MF4-yypkboto) (2005 at [place]) - Current every day smoker PT SMOKES A PIPE - Diverticulitis Perforated Diverticulitis - Pacemaker 02/16/2017 s/p PPM () 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 - Peritonitis ([facility]) PAST SURGICAL HISTORY: PAST SURGICAL HISTORY Procedure Laterality Date - APPENDECTOMY HX - COLON SURGERY HX 07/2016 [facility] - HEART SURGERY HX triple bypass 10 yrs ago FAMILY HISTORY: FAMILY HISTORY Problem Relation Age of Onset - Coronary Artery Disease Father - Hyperlipidemia Father SOCIAL HISTORY: Social History Substance Use Topics - Smoking status: Former Smoker Packs/day: 0.50 Years: 35.00 Types: Pipe, Cigarettes Quit date: 11/16/2016 - Smokeless tobacco: Never Used Comment: Quit cigarettes 11-16-16 now smoking 4 pipes as of 04-18-17 - Alcohol use No MEDICATIONS: Prior to Admission Medications: isosorbide mononitrate ER (IMDUR) 60 mg 24 hr tablet Take 1 tablet by mouth once daily. atorvastatin (LIPITOR) 10 mg tablet Take 1 tablet by mouth daily at bedtime. cyclobenzaprine (FLEXERIL) 10 mg tablet Take 1 tablet by mouth daily at bedtime. gabapentin (NEURONTIN) 300 mg capsule Take 2 capsules by mouth daily at bedtime for 90 days. metoprolol succinate ER (TOPROL XL) 100 mg Tb24 Take 1 tablet by mouth once daily. QUEtiapine (SEROQUEL) 200 mg tablet Take 2 tablets by mouth daily at bedtime. clopidogrel (PLAVIX) 75 mg tablet Take 1 tablet by mouth once daily. COMPOUNDED PRESCRIPTION Adhesive Removers: ConvaTec Sensi- Care No Sting30/boxICD 10: Prolapsed Stoma K94.09 COMPOUNDED PRESCRIPTION One Piece Ostomy Pouch Item Type: Coloplast Sensura One Piece Non-Sterile with Window 3/8-4 1/2'' ?5/BoxICD 10: Prolapsed Stoma K94.09 COMPOUNDED PRESCRIPTION Paste: Convatec Stomahesive 1 tubeICD 10: Prolapsed Stoma K 94.09 COMPOUNDED PRESCRIPTION Powder: Convatec Stomahesive 1 bottleICD 10: K 94.09 COMPOUNDED PRESCRIPTION Skin Barrier: Hollihesive 4x4 5/boxICD 10: Prolapsed Stoma K 94.09 MULTIVIT WITH IRON,MINERALS (MULTIVITAMIN AND MINERALS ORAL) Take 1 capsule by mouth. albuterol HFA (PROVENTIL HFA, VENTOLIN HFA) 90 mcg/actuation inhaler Inhale as instructed. fluticasone (FLONASE) 50 mcg/actuation nasal spray Use in the nose. nitroglycerin sublingual (NITROSTAT) 0.[address] ONE(1) TABLET UNDER TONGUE NEEDED FOR CHEST PAIN. IF NO PAIN RELIEF CALL 911 losartan (COZAAR) 100 mg tablet Take 100 mg by mouth once daily. aspirin 81 mg chewable tablet Take 81 mg by mouth once daily. furosemide (LASIX) 20 mg tablet Take 40 mg by mouth once daily as needed. No current hospital medications on file. ALLERGIES: ALLERGIES Allergen Reactions - Altaseptic Unknown - Crestor [Rosuvastat* Myalgia - Hctz [Amiloride-Hyd* Swelling - Ramipril Swelling - Simvastatin Myalgia - Voltaren [Diclofena* Unknown COMPLETE REVIEW OF SYSTEMS: GENERAL: No weight loss, malaise or fevers., SEE HPI HEENT: Negative for frequent or significant headaches NECK: Negative for pain and significant neck swelling RESPIRATORY: Negative for cough, wheezing or shortness of breath. CARDIOVASCULAR: Negative for chest pain, leg swelling. GI: See above : No history of dysuria MUSCULOSKELETAL: Negative for new joint pain. SKIN: Negative for new lesions PSYCH: Negative HEMATOLOGY/LYMPHOLOGY: Negative for prolonged bleeding NEURO: No new headaches All other reviewed and negative other than HPI. PHYSICAL EXAM: BP 161/76 Pulse 64 Temp 36.5 ?C (97.7 ?F) (Oral) Resp 20 SpO2 98% General appearance: well appearing, alert, in no acute distress, well-hydrated, well nourished Skin: skin color, texture, turgor normal, no suspicious rashes or lesions Head: normal Eyes: Extraocular movements are intact. Ears: external ears normal Oropharynx: mucosa moist Neck: normal size Back: motor and sensory appear to be normal Lungs: clear to auscultation, no wheezing or rhonchi Heart: RRR without murmur, gallop, or rubs. No ectopy Abdomen: As above. Extremities: No deformities, edema, or skin discoloration. Musculoskeletal: Spine range of motion normal. Muscular strength intact, Peripheral pulses: Normal Neuro: Gait normal. Sensation grossly intact. LABS CBC, Coags, BMP, Mg, Phos Recent Labs 06/05/17 1222 WBC 11.82* HB 13.6 HCT 40.2 PLT 347 NA 142 K 3.6* CHLOR 101 CO2 27 BUN 20 CREAT 1.11 GLUC 108* CA 9.5 MG 2.3 DATA: Diagnostic tests reviewed for today's visit: Most recent labs and imaging results. SIGNATURE: Dr Charly Ceballos MD PhD (Colorectal Fellow) PAGER: [phone] DATE of SERVICE: June 05, 2017 TIME of SERVICE: 3:23 PM ED NOTE Observed: 06/05/2017 Status: COMPLETED Source: [place] 3:20 PM [facility] REPOSITORY HNO ID: [id number] Author: Maribell Toth) MITCHELL Kan Service: Emergency Medicine Author Type: Registered Nurse Type: ED Notes Filed: 06/05/2017 3:38 PM Note Text: Pt provided urinal HIGH SENS TROPONIN T Collected: 06/05/2017 Status: F Source: [place] 1:17 PM [facility] REPOSITORY TYPE CODE TESTS RESULT OUT OF REFERENCE UNITS RANGE LAB HSTN <12 ng/L High High Sensitivity BRAYAN 19 Result Comment: When assessing risk for acute coronary syndromes: In patients undergoing blood draw greater than or equal to 2 hours from symptom onset, with history of very low to moderate risk and non-ischemic ECG, an initial hs-Troponin T less than 12 ng/L AND a 1 hour delta hs-Troponin T less than 3 ng/L should be considered very low risk for 30 day MACE. Performed By: #### HSTNT #### [facility] [place] [address] ED NOTE Observed: 06/05/2017 Status: COMPLETED Source: [place] 12:59 PM [facility] REPOSITORY HNO ID: [id number] Author: Maribell Toth) MITCHELL Kan Service: Emergency Medicine Author Type: Registered Nurse Type: ED Notes Filed: 06/05/2017 12:59 PM Note Text: water at bedside PROGRESS Observed: 06/05/2017 Status: COMPLETED Source: [place] 12:33 PM [facility] REPOSITORY HNO ID: [id number] Author: Hilary Wynn (Rt) Service: Radiology Author Type: Scraper Meat Type: Progress Notes Filed: 06/05/2017 12:33 PM Note Text: Radiology Service Progress Note PATIENT NAME: Maxx Knott DATE OF SERVICE: June 05, 2017 TIME: 12:33 PM PATIENT IDENTITY VERIFICATION COMPLETED USING TWO (2) METHODS: Patient confirmed name verbally and ID band matches.. PATIENT GENDER DATA: Male PATIENT RELEVANT IMPLANT DATA REVIEWED: Not Applicable RADIOLOGY DEPARTMENT: General X-ray: Exam(s) Completed: Chest X-Ray PERIPHERAL IV DATA: Not applicable SIGNED BY: RT Nicolas June 05, 2017 12:33 PM XR CHEST 2V FRONTAL/LAT Observed: 06/05/2017 Status: F Source: [place] 12:31 PM [facility] REPOSITORY * * *Final Report* * * DATE OF EXAM: Jun 05 2017 12:31PM EGX [id number] - XR CHEST 2V FRONTAL/LAT / PROCEDURE REASON: Cough in adult * * * * Physician Interpretation * * * * EXAMINATION: CHEST RADIOGRAPH (2 VIEW FRONTAL and LATERAL) Clinical History: Cough in adult M: XC2_4 Comparison: 05/13/2017 RESULT: Lines, tubes, and devices: Left-sided pacemaker with leads in the right atrium and ventricle. Lungs and pleura: No consolidation. No lung mass. No pleural effusion. Cardiomediastinal silhouette: Stable cardiomediastinal silhouette status post median sternotomy and CABG. IMPRESSION: No acute radiographic abnormality. Prep Room Supervisor: MAGI Transcribe Date/Time: Jun 05 2017 12:38P Dictated by : NACHO MORGAN MD This examination was interpreted and the report reviewed and electronically signed by: NACHO MORGAN MD on Jun 05 2017 12:38PM EST [id number] CBC AND DIFFERENTIAL Collected: 06/05/2017 Status: F Source: [place] 12:22 PM [facility] REPOSITORY TYPE CODE TESTS RESULT OUT OF REFERENCE UNITS RANGE LAB WBC 3.70-11.00 k/uL WBC High 11.82 LAB RBC 4.20-6.00 m/uL RBC 4.42 LAB HGB 13.0-17.0 g/dL Hemoglobin 13.6 LAB HCT 39.0-51.0 % Hematocrit 40.2 LAB MCV 80.0-100.0 fL MCV 91.0 LAB MCH 26.0-34.0 pG MCH 30.8 LAB MCHC 30.5-36.0 g/dL MCHC 33.8 LAB RDWCV 11.5-15.0 % RDW-CV 14.2 LAB PLTCT 150-400 k/uL Platelet Count 347 LAB MPV 9.0-12.7 fL MPV 10.0 LAB ANEUT % Neut% 72.8 LAB AANEUT 1.45-7.50 k/uL Abs Neut High 8.61 LAB ALYMP % Lymph% 18.2 LAB AALYMP 1.00-4.00 k/uL Abs Lymph 2.15 LAB AMONO % [place]% 8.2 LAB AAMONO <0.87 k/uL Abs [place] High 0.97 LAB AEOS % Eosin% 0.7 LAB AAEOS <0.46 k/uL Abs Eosin 0.08 LAB ABASO % Baso% 0.1 LAB AABASO <0.11 k/uL Abs Baso <0.03 LAB AUNRBC 0 /100 WBC NRBCs 0.0 LAB ABNRBC <0.01 k/uL Absolute nRBC <0.01 LAB DTYP DTYPE Auto Diff Performed By: #### CBCDIF, CMP, HSTNT, MG1 #### [facility] [address] [place], [place] [address] COMP METABOLIC PANEL Collected: 06/05/2017 Status: F Source: [place] 12:22 PM [facility] REPOSITORY TYPE CODE TESTS RESULT OUT OF REFERENCE UNITS RANGE LAB TP 6.3-8.0 g/dL Protein, Total 7.2 LAB ALB 3.9-4.9 g/dL Albumin 4.2 LAB CA 8.5-10.2 mg/dL Calcium, Total 9.5 LAB TBIL 0.2-1.3 mg/dL Bilirubin, Total 0.3 LAB ALKP 36-108 U/L Alkaline Phosphatase 82 LAB AST 14-40 U/L AST 16 LAB GLU 74-99 mg/dL Glucose High 108 Result Comment: The [place] Diabetes Association (ADA) provides guidance for cutoff values for fasting glucose and random glucose. The ADA defines fasting as no caloric intake for at least 8 hours. Fas ting plasma glucose results between 100 to 125 mg/dL indicate increased risk for diabetes (prediabetes). Fasting plasma glucose results greater than or equal to 126 mg/dL meet the criteria for diagnosis of diabetes. In the absence of unequivocal hyperglycemia, results should be confirmed by repeat testing. In a patient with classic symptoms of hyperglycemia or hyperglycemic crisis, random plasma glucose results greater than or equal to 200 mg/dL meet the criteria for diagnosis of diabetes. Reference: Standards of Medical Care in Diabetes 2016, [place] [employer] Association. Diabetes Care. 2016.39(Suppl 1). LAB BUN 9-24 mg/dL BUN 20 LAB CRET 0.73-1.22 mg/dL Creatinine 1.11 LAB NA 136-144 mmol/L Sodium 142 LAB K 3.7-5.1 mmol/L Potassium Low 3.6 LAB CL 97-105 mmol/L Chloride 101 LAB CO2 22-30 mmol/L CO2 27 LAB AGAP 9-18 mmol/L Anion Gap 14 LAB ALT 10-54 U/L ALT 28 LAB GFRAA eGFR- Amer. >60 LAB GFRNAA . eGFR-All Other Races >60 Result Comment: eGFR (Estimated GFR) Units of measure: mL/min/1.73 meters squared eGFR is derived from the reexpressed MDRD Study equation using the following parameters: serum creatinine, age, gender and race. The creatinine assay has been calibrated to be traceable to IDMS. An eGFR <60 mL/min/1.73m2 for >3 months is consistent with chronic kidney disease. Refer to KDOQI guidelines for clinical interpretation. In patients with unstable renal function, e.g. those with acute kidney injury, the eGFR may not accurately reflect actual GFR. Performed By: #### CBCDIF, CMP, HSTNT, MG1 #### [facility] [address] [place], [place] [address] HIGH SENS TROPONIN T Collected: 06/05/2017 Status: F Source: [place] 12:22 PM [facility] REPOSITORY TYPE CODE TESTS RESULT OUT OF REFERENCE UNITS RANGE LAB HSTN <12 ng/L High High Sensitivity BRAYAN 19 Result Comment: When assessing risk for acute coronary syndromes: In patients undergoing blood draw greater than or equal to 2 hours from symptom onset, with history of very low to moderate risk and non-ischemic ECG, an initial hs-Troponin T less than 12 ng/L AND a 1 hour delta hs-Troponin T less than 3 ng/L should be considered very low risk for 30 day MACE. Performed By: #### CBCDIF, CMP, HSTNT, MG1 #### [facility] [address] [place], [place] [id number] MAGNESIUM Collected: 06/05/2017 Status: F Source: [place] 12:22 PM [facility] REPOSITORY TYPE CODE TESTS RESULT OUT OF REFERENCE UNITS RANGE LAB MG 1.7-2.3 mg/dL Magnesium 2.3 Performed By: #### CBCDIF, CMP, HSTNT, MG1 #### [facility] [address] [place], [place] [address] ED NOTE Observed: 06/05/2017 Status: COMPLETED Source: [place] 12:07 PM [facility] REPOSITORY HNO ID: [id number] Author: Maribell KingRn) MITCHELL Kan Service: Emergency Medicine Author Type: Registered Nurse Type: ED Notes Filed: 06/05/2017 12:07 PM Note Text: Attempt IV placement x1 ED NOTE Observed: 06/05/2017 Status: COMPLETED Source: [place] 12:03 PM [facility] REPOSITORY HNO ID: [id number] Author: Maribell iKngRn) MITCHELL Kan Service: Emergency Medicine Author Type: Registered Nurse Type: ED Notes Filed: 06/05/2017 12:15 PM Note Text: Pt presents to the ED complaining of sharp/aching midsternal chest pain that occurred early this morning. Pt states he was sitting down when it occurred. Pt took two nitro. Pt has sob with the chest pain. +nausea, denies vomiting. Denies pain radiation. Pt has been having a productive cough with green/yellow sputum for the past couple days. Denies fever. +chills. Pt has been using his inhalers. Pt has history of CABGx3 and stents. Pt also woke up this morning and noticed his stoma has enlarged (colostomy prolapse). No change in colostomy output. Pt suppose to have reversal later this month. Pt states the site is painful. Assessed pt. Patient is AOX3, PERRL +, speech is clear and coherent, lungs sounds clear, pulses present, sensation intact, present BSx4. Abdomen soft tender over area of colostomy, pt stoma is enlarged, brown drainage in the colostomy bag. patients MAEx4, Denies Numbness and tingling Side rails up x2 call light within reach. Will cont to monitor. Awaiting MD orders. ED PROV NOTE Observed: 06/05/2017 Status: COMPLETED Source: [place] 11:54 AM [facility] REPOSITORY HNO ID: [id number] Author: Courtney Mallory MD Service: Emergency Medicine Author Type: Physician Type: ED Provider Notes Filed: 06/06/2017 4:43 PM Note Text: ED Provider Note Patient Name: Maxx Knott SERVICE DATE: 06/05/17 History Patient presents with: Chest Pain Shortness of Breath HPI HPI provided by: self Maxx Knott is a 66 year old male with a history of CAD (CABG 2005, PCI 02/13), pacemaker placement, and hypertension that presents with chest pain and ostomy pain. Chest pain - onset this AM, achy, 8/, non-radiating. Took a nitro without relief this AM. No aggravating features. This is associated with 2 days of productive cough and shortness of breath. Ostomy - woke up this AM and noted it was enlarged and poking out. There is associated pain. No alleviating/aggravating features. 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 - Peritonitis ([facility]) PAST SURGICAL HISTORY Procedure Laterality Date - APPENDECTOMY HX - COLON SURGERY HX 07/2016 Chad's - HEART SURGERY HX triple bypass 10 yrs ago FAMILY HISTORY Problem Relation Age of Onset - Coronary Artery Disease Father - Hyperlipidemia Father Social History Social History Main Topics - Smoking status: Former Smoker Packs/day: 0.50 Years: 35.00 Types: Pipe, Cigarettes Quit date: 11/16/2016 - Smokeless tobacco: Never Used Comment: Quit cigarettes 11-16-16 now smoking 4 pipes as of 04-18-17 - Alcohol use No - Drug use: No - Sexual activity: Not Currently ALLERGIES Allergen Reactions - Altaseptic Unknown - Crestor [Rosuvastat* Myalgia - Hctz [Amiloride-Hyd* Swelling - Ramipril Swelling - Simvastatin Myalgia - Voltaren [Diclofena* Unknown Review of Systems Constitutional: Negative for fever, weight changes, fatigue Neuro: Negative for headache, syncope/pre-syncope Eyes: Negative for visual change HENT: Negative for sore throat, difficulty swallowing, rhinorrhea, tinnitus Cardio: Negative for palpitations Pulm: Positive for shortness of breath, cough GI: Negative for abdominal pain, nausea/vomiting, diarrhea/constipation Endo: Negative : Negative MSK: Negative for arthralgia/myalgia Skin: Negative for rash, color change Allergy/Immunology: Negative for new exposure/contacts Physical Exam BP 160/76 Pulse 82 Temp (Src) 97.7 (Oral) Resp 20 SpO2 97% Physical Exam General: well appearing, NAD HENT: Atraumatic/normocephalic. Eyes: Anicteric. PERRL, EOM full, no discharge Neck: No JVD, no stridor Heart: Regular rate and rhythm. Normal S1/S2. Radial, dorsal pedal pulses are palpable and symmetric bilaterally. Chest/Lungs: No chest wall tenderness. Respirations non-labored. Lungs clear to auscultation bilaterally, though with diminished air flow. Abdomen: Ostomy site noted in LUQ. Noted to be prolapsed, pink/viable appearance of tissue. Thin brown liquid stool in bag. Bowel sounds are present. Extremities: No peripheral edema. No calf tenderness. Neuro: Alert, oriented to person/place/circumstance. Extremity strength symmetric. Sensation of the face, bilateral upper and lower extremities is intact. Gait observed and is steady with normal stride. Skin: warm and dry. No diaphoresis. Psych: Mood is euthymic. Affect congruent. Diagnostic Testing ED Labs Ordered and Reviewed CBC + DIFF - Abnormal; Notable for the following: Result Value Ref Range WBC 11.82 (*) 3.70 - 11.00 k/uL Abs Neut (ANC) 8.61 (*) 1.45 - 7.50 k/uL Abs [place] 0.97 (*) <0.87 k/uL All other components within normal limits COMP METABOLIC PANEL - Abnormal; Notable for the following: Glucose 108 (*) 74 - 99 mg/dL Potassium 3.6 (*) 3.7 - 5.1 mmol/L All other components within normal limits HIGH SENSITIVITY TROPONIN T - Abnormal; Notable for the following: BRAYAN High Sensitivity 19 (*) <12 ng/L All other components within normal limits HIGH SENSITIVITY TROPONIN T - Abnormal; Notable for the following: BRAYAN High Sensitivity 19 (*) <12 ng/L All other components within normal limits MAGNESIUM BLD Procedures Medical Decision Making / ED Course ED Course Chart Review: 05/16/2017 - seen in ED for chest pain, negative delta trop. Admitted for rule out. Seen by cards. Normal LexiScan. 04/15-04/17/17 - seen in ED for stomal prolapse and chest pain. Loaders note documents patient missing outpt pre-operative planning visits regarding ostomy reversal. Interpretation of Labs and Studies: All imaging personally reviewed. CBC: No significant leukocytosis or anemia Metabolic Panel: No electrolyte abnormalities, no renal insufficiency. Troponin: Negative x2 CXR (personally reviewed): Negative for pneumothorax, pulmonary edema, or infiltrate. Mediastinum appears normal. EKG: Normal sinus rhythm, no acute ST/T wave changes, no interval abnormalities, comparable with prior EKG studies. MDM: 66 year old male that presents with chest pain and stomal prolapse. Regarding his chest pain, patient has had cycling of cardiac enzymes on 04/02, 04/15, 05/13, and 05/16 with additionally a negative LexiScan on 05/16's admission. Delta trop negative here in ED today. Will not pursue further workup at this time. Regarding stomal prolapse, colorectal surgery was consulted. Reduced at bedside by [facility] consultant, however prolapse recurred. No signs of ischemia. Recommendation was provided for outpatient follow up to further plan take down. Discussed overall impression/plan with the patient. Patient agreeable with discharge and follow up. Encounter Diagnosis ICD-10-CM 1. 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 Atypical chest pain R07.89 Plan The Patient was DISCHARGED: Counseled patient regarding lab results AND suspected diagnosis AND need for follow-up. Discharged home with verbal and written instructions. They were instructed to return as needed for persistent or worsening symptoms or any new concerns. Condition at time of disposition: improved and stable SIGNATURE: MD Rich Smith (Res) Cheryl Resident 06/05/17 [id number] I evaluated the patient and personally participated in the nelson components. I agree with the resident's findings and plan as documented and have discussed the case and management of the patient's care with the resident. Patient is here with chronic chest pain with multiple recent rule out to the last 2 months. He is also here with a prolapse stoma which is the main reason for today's presentation. Colorectal surgery was consult and for reduction as it was a rather impressive ups. 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 He states he also woke up and noticed his stoma was larger in size than it has ever been and it is extremely tender. Denies blood in the stool. Denies n/v. BRIEF EXAM: Awake and Alert RRR - TTP over chest wall CTAB RLQ stoma, TTP, enlarged, soft brown stool output INTAKE WORKUP: Bloodwork: CBC CMP Cardiac Enzymes EKG SIGNATURE: Halima Palomino PA-C PROGRESS Observed: 05/21/2017 Status: COMPLETED Source: [place] 10:18 AM [facility] REPOSITORY HNO ID: [id number] Author: Brenda Law Pharmd Service: (none) Author Type: Pharmacist Type: Progress Notes Filed: 05/22/2017 1:46 PM Note Text: Pharmacy Transitional Care Management Outreach First attempt to contact patient for TCM outreach was unsuccessful. We will contact patient again on the next business day. Brenda Law, PharmD May 21, 2017 10:39 AM Pharmacy Transitional Care Management PROGRESS Observed: 05/21/2017 Status: COMPLETED Source: [place] 10:18 AM [facility] REPOSITORY HNO ID: [id number] Author: Brenda Law Pharmd Service: (none) Author Type: Pharmacist Type: Progress Notes Filed: 05/22/2017 1:46 PM Note Text: Pharmacy Transitional Care Management Outreach Patient no showed for appointment or two unsuccessful phone outreach attempts reached. No further attempts to contact patient will be made. Recommendation for provider: Patient has a FOV with PCP on 05/23/2017, Please consider confirming that patient is taking the plavix, there is no fill per reconcile dispense report and a limited qty was provided. Thank you Brenda Law PharmD May 22, 2017 8:42 AM Pharmacy Transitional Care Management [phone] RUTH Observed: 05/21/2017 Status: COMPLETED Source: [place] 12:00 AM [facility] REPOSITORY Patient Outreach (AMBPHARMSVC) MAXX KNOTT ([id number]) 1950 Date Time Provider Department 05/21/17 TREVON SEGURA, BRENDA WELLS During your visit today, we recorded the following information about you: Brenda Law PharmD 05/22/2017 1:46 PM Signed Pharmacy Transitional Care Management Outreach First attempt to contact patient for TCM outreach was unsuccessful. We will contact patient again on the next business day. Brenda Law PharmD May 21, 2017 10:39 AM Pharmacy Transitional Care Management Brenda Law PharmD 05/22/2017 1:46 PM Signed Pharmacy Transitional Care Management Outreach Patient no showed for appointment or two unsuccessful phone outreach attempts reached. No further attempts to contact patient will be made. Recommendation for provider: Patient has a FOV with PCP on 05/23/2017, Please consider confirming that patient is taking the plavix, there is no fill per reconcile dispense report and a limited qty was provided. Thank you Brenda Law PharmD May 22, 2017 8:42 AM Pharmacy Transitional Care Management [phone] Allergies As of Date: 05/21/2017 Noted Allergy Reaction ALTASEPTIC 12/17/2016 16 - Unknown CRESTOR (ROSUVASTATIN CALCIUM) 12/17/2016 17 - Myalgia HCTZ (AMILORIDE-HYDROCHLOROTHIAZI*12/17/2016 7 - Swelling RAMIPRIL 12/17/2016 7 - Swelling SIMVASTATIN 12/17/2016 17 - Myalgia VOLTAREN (DICLOFENAC SODIUM) 12/17/2016 16 - Unknown Date Reviewed: 05/16/2017 Reviewed by: Sushila (Rn) MITCHELL Diaz - Fully Assessed Reason for Visit: Transition Of Care [4074] Cmt: Hospital Discharge 05/19/2017 Prescriptions as of 05/21/2017 Sig: ISOSORBIDE MONONITRATE ER 60 * Take 1 tablet by mouth once d* ATORVASTATIN 10 MG TABLET Take 1 tablet by mouth daily * OXYCODONE-ACETAMINOPHEN 5 MG-* Take 1 tablet by mouth every * CYCLOBENZAPRINE 10 MG TABLET Take 1 tablet by mouth daily * GABAPENTIN 300 MG CAPSULE Take 2 capsules by mouth dominik* METOPROLOL SUCCINATE ER 100 M* Take 1 tablet by mouth once d* QUETIAPINE 200 MG TABLET Take 2 tablets by mouth daily* CLOPIDOGREL 75 MG TABLET Take 1 tablet by mouth once d* COMPOUNDED PRESCRIPTION Adhesive Removers: ConvaTec S* COMPOUNDED PRESCRIPTION One Piece Ostomy Pouch Item T* COMPOUNDED PRESCRIPTION Paste: Convatec Stomahesive * COMPOUNDED PRESCRIPTION Powder: Convatec Stomahesive * COMPOUNDED PRESCRIPTION Skin Barrier: Hollihesive 4x4* MULTIVITAMIN AND MINERALS ORAL Take 1 capsule by mouth. ALBUTEROL SULFATE HFA 90 MCG/* Inhale as instructed. FLUTICASONE 50 MCG/ACTUATION * Use in the nose. NITROGLYCERIN 0.4 [address]U* PLACE ONE(1) TABLET UNDER TON* LOSARTAN 100 MG TABLET Take 100 mg by mouth once roddy* ASPIRIN 81 MG CHEWABLE TABLET Take 81 mg by mouth once dominik* FUROSEMIDE 20 MG TABLET Take 40 mg by mouth once odminik* Problem List As Of Date 05/21/2017 Noted Resolved 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 Chest pain [R07.9] INVALID FOR* Priority: A More... Hypertensive crisis [I16.9] INVALID FOR* Priority: B More... Healthcare maintenance [Z00.00] INVALID FOR* Priority: M More... Malnutrition of mild degree (HCC) [E44.1] INVALID FOR* Priority: L More... CHF (congestive heart failure) (HCC) [I50.9] INVALID FOR* Diverticulitis [K57.92] INVALID FOR* More... Chronic systolic congestive heart failure (HCC)*INVALID FOR* More... CAD (coronary artery disease) [I25.10] INVALID FOR* HTN (hypertension) [I10] INVALID FOR* Medications Discontinued During This Encounter oxyCODONE-acetaminophen (PERCOCET) 5* 05/21/2017 Class: Historical Med Route: ORAL Sig: Take 1 tablet by mouth every 6 hours as needed. Disc: Course of therapy completed Encounter Status:Closed by TREVON (PHARMACIST)BRENDA on 05/22/17 CNMARIS Observed: 05/19/2017 Status: COMPLETED Source: [place] 12:08 PM CLINIC OTHER CAMPUS REPOSITORY HNO ID: [id number] Author: Mindy Nair Service: Hospital Medicine Author Type: Physician Type: Discharge Summaries Filed: 05/19/2017 12:36 PM Note Text: DISCHARGE SUMMARY PATIENT NAME: Maxx Knott ADMISSION DATE: 05/16/2017 DISCHARGE DATE: 05/19/2017 Attending Physician: Kvng Hui Reason for Hospitalization: Chest pain Principal Problem: Chest pain Active Problems: Colostomy prolapse (HCC) Chronic systolic congestive heart failure (HCC) CAD (coronary artery disease) HTN (hypertension) Resolved Problems: * No resolved hospital problems. 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 He was admitted for chest pain and received heart work ups which were unremarkable (including heart stress test with no evidence of ischemia). Cardiology consulted and recommended aggressive medical management. He was also tested positive for flu couple day ago but declined to take tamaflu. - Chest pain,Per Cardiology Dr. Stratotn, aggressive medical management and ok to be discharged Stress test: MODERATE LCX DISTRIBUTION INFARCTION REPRESENTING 13% ?OF THE VENTRICLE. II. NORMAL SIZE LEFT VENTRICLE WITH ABNORMAL GLOBAL AND REGIONAL FUNCTION. III.LVEF= 47%. ?? 2- Recent Flu infection patient didn't want to be on tamiflu, continue with supportive treatment. ?? 3- Parastomal hernia, plans for surgical repair next month, for now continue with current treatment, and was evaluated by ostomy nurse and bag was changed. ?? 4- HTN controlled. ?? 5- Hypokalemia corrected. ?? 6- YUSUF on CPAP. ?? 7- Left??kidney lesion (2.5cm) noted on CT scan, further evaluation with nonemergent renal mass protocol CT or MRI was recommended by radiology ?? Patient Checklist Prophylaxis: ?VTE - Yes ?PPI -??No ?? Code Status:?DC home with VNS Principal Problem: Chest pain Active Problems: Colostomy prolapse (HCC) Chronic systolic congestive heart failure (HCC) Overview: Added automatically from request for surgery [id number] CAD (coronary artery disease) HTN (hypertension) Resolved Problems: * No resolved hospital problems. * Labs and Procedures Pending at Discharge: No pending results. Consulting Teams During Hospitalization: Cardiology: Gamal Stratton MD Patient Condition @ Discharge: Stable Discharge Disposition: Home with Home Health Care Discharge Physical Exam: VITAL SIGNS: BP 159/72 Pulse 73 Temp 36.7 ?C (98.1 ?F) (Oral) Resp 20 Ht 172.7 cm (5' 8) Wt 93 kg (205 lb) SpO2 96% BMI 31.17 kg/m2 GENERAL: Alert, no distress, cooperative LUNGS: Lungs clear to auscultation, Good diaphragmatic excursion CARDIAC: Normal S1 and S2; no rubs, murmurs, or gallops ABDOMEN: Abdomen soft, non-tender, BS normal, No masses or organomegaly The remainder of the physical exam is noncontributory. Information Provided to Patient: None Discharge Medications: Current Discharge Medication List START taking these medications isosorbide mononitrate ER (IMDUR) 60 mg Take 60 mg by mouth once daily. Qty: 30 tablet Refills: 0 atorvastatin (LIPITOR) 10 mg Take 10 mg by mouth daily at bedtime. Qty: 30 tablet Refills: 0 !! oxyCODONE-acetaminophen (PERCOCET) 1 tablet Take 1 tablet by mouth every 6 hours as needed for Pain. Earliest Fill Date: 05/19/17 Qty: 10 tablet Refills: 0 Comments: For back pain and pain related to stomy area Associated Diagnoses:Colostomy prolapse (HCC) !! - Potential duplicate medications found. Please discuss with provider. CONTINUE these medications which have NOT CHANGED !! oxyCODONE-acetaminophen (PERCOCET) 1 tablet Take 1 tablet by mouth every 6 hours as needed. cyclobenzaprine (FLEXERIL) 10 mg Take 10 mg by mouth daily at bedtime. Qty: 90 tablet Refills: 0 Associated Diagnoses:Chronic low back pain, unspecified back pain laterality, with sciatica presence unspecified gabapentin (NEURONTIN) 600 mg Take 600 mg by mouth daily at bedtime. Qty: 90 capsule Refills: 0 Associated Diagnoses:Chronic low back pain, unspecified back pain laterality, with sciatica presence unspecified metoprolol succinate ER (TOPROL XL) 100 mg Take 100 mg by mouth once daily. Qty: 90 tablet Refills: 4 QUEtiapine (SEROquel) 400 mg Take 400 mg by mouth daily at bedtime. Qty: 60 tablet Refills: 0 clopidogrel (PLAVIX) 75 mg Take 75 mg by mouth once daily. Qty: 30 tablet Refills: 0 !! COMPOUNDED PRESCRIPTION Adhesive Removers: ConvaTec Sensi-Care No Sting 30/box ICD 10: Prolapsed Stoma K94.09 Qty: 1 Box Refills: 0 !! COMPOUNDED PRESCRIPTION One Piece Ostomy Pouch Item Type: Coloplast Sensura One Piece Non-Sterile with Window 3/8-4 1/2'' ?5/Box ICD 10: Prolapsed Stoma K94.09 Qty: 1 Box Refills: 0 !! COMPOUNDED PRESCRIPTION Paste: Convatec Stomahesive 1 tube ICD 10: Prolapsed Stoma K 94.09 Qty: 1 Tube Refills: 0 !! COMPOUNDED PRESCRIPTION Powder: Convatec Stomahesive 1 bottle ICD 10: K 94.09 Qty: 1 Bottle Refills: 0 !! COMPOUNDED PRESCRIPTION Skin Barrier: Hollihesive 4x4 5/box ICD 10: Prolapsed Stoma K 94.09 Qty: 1 Box Refills: 0 MULTIVIT WITH IRON,MINERALS (MULTIVITAMIN AND MINERALS ORAL) 1 capsule Take 1 capsule by mouth. albuterol HFA (PROVENTIL HFA, VENTOLIN HFA) 90 mcg/actuation inhaler Inhale as instructed. fluticasone (FLONASE) 50 mcg/actuation nasal spray Use in the nose. nitroglycerin sublingual (NITROSTAT) 0.[address] ONE(1) TABLET UNDER TONGUE NEEDED FOR CHEST PAIN. IF NO PAIN RELIEF CALL 911 Qty: 25 tablet Refills: 0 losartan (COZAAR) 100 mg Take 100 mg by mouth once daily. aspirin 81 mg Take 81 mg by mouth once daily. furosemide (LASIX) 40 mg Take 40 mg by mouth once daily as needed. !! - Potential duplicate medications found. Please discuss with provider. STOP taking these medications oseltamivir (TAMIFLU) 75 mg Comments: Reason for Stopping: hydrALAZINE (APRESOLINE) 10 mg Comments: Reason for Stopping: pravastatin (PRAVACHOL) 40 mg Comments: Reason for Stopping: amLODIPine (NORVASC) 10 mg Comments: Reason for Stopping: Future Appointments: Follow Up with PCP at next available appointment: Bijan Preez MD Follow up with Cardiology at next available appointment TIME OF CARE: Discharge Management: I personally spent greater than 30 minutes involved in the discharge management of this patient. SIGNATURE: Mindy Nair MD PAGER: sound red DATE: May 19, 2017 TIME: 12:08 PM PROGRESS Observed: 05/19/2017 Status: COMPLETED Source: [place] 10:06 AM CLINIC OTHER CAMPUS REPOSITORY O ID: [id number] Author: Gamal Stratton Service: (none) Author Type: Physician Type: Progress Notes Filed: 05/19/2017 10:10 AM Note Text: PROGRESS NOTE CARDIOLOGY SERVICE SERVICE DATE: 05/19/2017 SERVICE TIME: 10:07 AM Subjective INTERIM HISTORYlax. cardiolite Test . No Ischemia. Atyp. Non Cardiac Cp. CARDIAC STATUS Vs Stable. ekg No Change.. Enzyme Normal. Objective PHYSICAL EXAM: GENERAL: normal SKIN: Negative, Skin color, texture, turgor normal. No rashes or lesions. EYES: PERRLA, Negatives OROPHARYNX: Lips, mucosa, and tongue normal. Teeth and gums normal. Oropharynx normal. NECK: No jugulovenous distention, No carotid bruits, Carotid pulse normal contour, Supple LUNGS: Lungs clear to auscultation, Good diaphragmatic excursion CARDIAC: Normal S1 and S2; no rubs, murmurs, or gallops ABDOMEN: Abdomen soft, non-tender, BS normal, No masses or organomegaly EXTREMITIES: Extremities normal, no deformities, edema, clubbing or skin discoloration. Good capillary refill., No ulcers PULSES: 2+ radial, 2+ carotid The remainder of the physical exam is noncontributory. Body mass index is 31.17 kg/(m2). O2 Therapy: Continuous Positive Airway Pressure No Data Recorded Last 3 Encounter BP Readings: Date: BP: 05/16/2017 159/72 05/13/2017 127/60 04/18/2017 154/69 Pleasant, comfortable, not in acute distress. Awake, alert, oriented times 3. Moves all extremities. SKIN: No rash or lumps. HEENT: Normocephalic, face symmetrical. NECK: Supple, no JVD, no carotid bruit, no thyromegaly. LUNGS: Clear to auscultation bilaterally. CARDIAC: PMI present, RRR, S1 and S2, no S3 or S4, no additional heart sounds or murmurs. ABDOMEN: Soft, nontender, bowel sounds present. EXTREMITIES: No edema. PULSES: Peripheral pulses present. PULSES: 2+ radial, 2+ carotid DATA: Diagnostic tests reviewed for today's visit: Most recent labs CBC: No results for input(s): WBC, RBC, HB, HCT, PLT, MCV, MCH, MPV, RDW in the last 24 hours. BMP: Recent Labs 05/19/17 0430 NA 143 K 4.1 CHLOR 108* CO2 30 BUN 27* CREAT 1.05 GLUC 108* CMP: Recent Labs 05/19/17 0430 NA 143 K 4.1 CHLOR 108* CO2 30 BUN 27* CREAT 1.05 GLUC 108* CA 8.8 ANION 9 Cardiac Enzymes: No results for input(s): CK, MB, CKMB, TROPT in the last 24 hours. Renal Panel: Recent Labs 05/19/17 0430 CREAT 1.05 BUN 27* GLUC 108* CA 8.8 CHLOR 108* K 4.1 CO2 30 NA 143 No results found for: TSH No results found for: HBA1C Cholesterol, Total Date Value Ref Range Status 10/02/2016 182 0 - 199 mg/dL Final Comment: <200 Desirable 200-240 Borderline >240 High HDL Cholesterol Date Value Ref Range Status 10/02/2016 37 >40 mg/dL Final LDL Calculated Date Value Ref Range Status 10/02/2016 125 mg/dL Final Comment: No CAD and with fewer than 2 CAD risk factors <160 mg/dl No CAD but with 2 or more CAD risk factors <130 mg/dl Definite CAD or other atherosclerotic disease <100 mg/dl Triglyceride Date Value Ref Range Status 10/02/2016 100 0 - 149 mg/dL Final Comment: < 200 Desirable Result invalid if not a fasting specimen. ASSESSMENT 1. NO EVIDENCE OF ISCHEMIA. ?MODERATE LCX DISTRIBUTION INFARCTION REPRESENTING 13% ?OF THE VENTRICLE. ? 2. NORMAL SIZE LEFT VENTRICLE WITH ABNORMAL GLOBAL AND REGIONAL FUNCTION. ? 3.LVEF= 47%. PLAN1. Aggressive Control of Coronary Risk Factors./ medical Treatment. Ok To Discharge From Cardiac Stand Point. SIGNATURE: Gamal Stratton MD PATIENT NAME: Maxx Knott DATE: May 19, 2017 TIME: 10:07 AM PAGER/CONTACT #: GAMAL GILL MD, [facility], HOWIE BALES, PROGRESS Observed: 05/19/2017 Status: COMPLETED Source: [place] 8:58 AM CLINIC OTHER CAMPUS REPOSITORY O ID: [id number] Author: Mindy Nair Service: Hospital Medicine Author Type: Physician Type: Progress Notes Filed: 05/19/2017 11:46 AM Note Text: DEPARTMENT OF HOSPITAL MEDICINE PROGRESS NOTE SERVICE DATE: 05/19/2017 SERVICE TIME: 8:58 AM Hospital Medicine/Primary Attending: Mindy Nair MD NIGHT AND WEEKEND COVERAGE: After 7pm please page [phone] SUBJECTIVE: no acute events overnight. No fever, abdominal pain, nausea, or vomiting. OBJECTIVE: PHYSICAL EXAM: BP 144/70 Pulse 62 Temp (Src) 97.7 (Oral) Resp 18 Ht 5' 8 (1.73m) Wt 205 lb (93.0kg) SpO2 98% BMI 31.18 kg/(m2). General - AANDOx3, NAD, Calm CV - RRR S1 S2, No M/R/G RESP - CTA B/L ABD - soft, NT, ND +BS EXT - no gross joint deformity, no clubbing, cyanosis, edema NEURO - no focal deficits MEDICATIONS: Current hospital medications: isosorbide mononitrate ER 60 mg tab(s) (IMDUR) 60 mg ORAL DAILY nitroglycerin sublingual 0.4 mg tab(s) (NITROQUICK) 0.4 mg SUBLINGUAL q 5 MIN PRN iv contrast (radiology procedure) INTRAVENOUS DIRECTED PRN gabapentin 600 mg cap(s) (NEURONTIN) 600 mg ORAL AT BEDTIME atorvastatin 10 mg tab(s) (LIPITOR) 10 mg ORAL AT BEDTIME losartan 100 mg tab(s) (COZAAR) 100 mg ORAL DAILY QUEtiapine 400 mg tab(s) (SEROquel) 400 mg ORAL AT BEDTIME albuterol HFA 90 mcg/actuation 2 Puff (PROVENTIL HFA, VENTOLIN HFA) 2 Puff INHALATION q 4 H PRN metoprolol succinate ER 100 mg tab(s) (TOPROL XL) 100 mg ORAL DAILY furosemide 40 mg tab(s) (LASIX) 40 mg ORAL DAILY aspirin 81 mg chewable tab(s) 81 mg ORAL DAILY clopidogrel 75 mg tab(s) (PLAVIX) 75 mg ORAL DAILY nicotine 14 mg/24 hr 1 Patch (NICODERM) 1 Patch TRANSDERMAL DAILY nicotine -- REMOVE patch OTHER DAILY nicotine - verify patch OTHER q 8 H enoxaparin 40 mg injection (LOVENOX) 40 mg SUBCUTANEOUS DAILY morphine 4 mg injection 4 mg INTRAVENOUS q 4 H PRN ondansetron (PF) 4 mg injection (ZOFRAN) 4 mg INTRAVENOUS q 6 H PRN DATA: Diagnostic tests reviewed for today's visit: CBC: No results for input(s): WBC, RBC, HB, HCT, PLT, MCV, MCH, MPV, RDW in the last 24 hours. Coags: No results for input(s): INR, APTT in the last 24 hours. Invalid input(s): PT BMP: Recent Labs 05/19/17 0430 NA 143 K 4.1 CHLOR 108* CO2 30 BUN 27* CREAT 1.05 GLUC 108* CMP: Recent Labs 05/19/17 0430 NA 143 K 4.1 CHLOR 108* CO2 30 BUN 27* CREAT 1.05 GLUC 108* CA 8.8 ANION 9 Cardiac Enzymes: No results for input(s): CK, MB, CKMB, TROPT in the last 24 hours. Liver Function, Amylase, Lipase: No results for input(s): TPROT, ALB, ALT, AST, ALKPHOS, TBILI, AMYLASE, LIPASE, LACTATE in the last 24 hours. MG/PHOS: No results for input(s): MG, P in the last 24 hours. Renal Panel: Recent Labs 05/19/17 0430 CREAT 1.05 BUN 27* GLUC 108* CA 8.8 CHLOR 108* K 4.1 CO2 30 NA 143 Heme: No results for input(s): RETICP, ABSRETIC, LD, WINTER, FE, TIBC, TRANSFERSAT in the last 24 hours. No results found for: UALBCR Assessment/Plan 1- Chest pain,Per Cardiology Dr. Stratton, aggressive medical management. Stress test: MODERATE LCX DISTRIBUTION INFARCTION REPRESENTING 13% ?OF THE VENTRICLE. II. NORMAL SIZE LEFT VENTRICLE WITH ABNORMAL GLOBAL AND REGIONAL FUNCTION. III.LVEF= 47%. ? 2- Recent Flu infection patient didn't want to be on tamiflu, continue with supportive treatment. ?? 3- Parastomal hernia, plans for surgical repair next month, for now continue with current treatment, and was evaluated by ostomy nurse and bag was changed. ?? 4- HTN controlled. ?? 5- Hypokalemia corrected. ?? 6- YUSUF on CPAP. ?? 7- Left??kidney lesion (2.5cm) noted on CT scan, further evaluation with nonemergent renal mass protocol CT or MRI was recommended by radiology ? Patient Checklist Prophylaxis: VTE - Yes PPI - No ? Code Status: Likely DC home with VNS SIGNATURE: Mindy Nair MD PATIENT NAME: Maxx Knott DATE: May 19, 2017 TIME: 8:58 AM PAGER/CONTACT #: Luciano red BASIC PANEL Collected: 05/19/2017 Status: F Source: [facility] 4:30 AM HEALTH SYSTEM REPOSITORY TYPE CODE TESTS RESULT OUT OF REFERENCE UNITS RANGE LAB NA(LOINC) 136-145 mEq/L Sodium Blood 143 LAB K(LOINC) 3.5-5.1 mEq/L Potassium Blood 4.1 LAB CL(LOINC) 98-107 mEq/L Chloride High Blood 108 LAB CO2(LOINC) 21-32 mEq/L CO2 Blood 30 LAB GLU(LOINC) 70-99 mg/dL Glucose High Blood 108 LAB BUN(LOINC) 7-18 mg/dL BUN High Blood 27 LAB CREA(LOINC 0.67-1.17 mg/dL ) Creatinine Blood 1.05 LAB CA(LOINC) 8.5-10.1 mg/dL Calcium Blood 8.8 LAB ANGAP(LOIN 8-16 C) Anion Gap 9 Performed By: #### P8 #### [place] [address] MDRD GFR Collected: 05/19/2017 Status: F Source: [facility] 4:30 AM HEALTH SYSTEM REPOSITORY TYPE CODE TESTS RESULT OUT OF RANGE REFERENCE UNITS LAB GFRFN(LOINC >60mL/min/1.73m ) 2 eGFR >60 Result Comment: If the patient is , multiply the result by 1.210. Performed By: #### GFR #### [place] [address] NURSING PROG Observed: 05/18/2017 Status: COMPLETED Source: [place] 8:30 PM [facility] OTHER [place] REPOSITORY HNO ID: [id number] Author: Vanita KingRn) Campos RN Service: Nursing Author Type: Registered Nurse Type: Nursing Progress Note Filed: 05/18/2017 8:33 PM Note Text: 05/18/[address] Stratton from cardiology notified that the patient has returned from stress test and stress test results are ready to be read. Also Dr. Stratton notified that the patient still complains of 7/10 chest pressure. No further orders given by Dr. Stratton at this time. Dr. Stratton states that he will look at stress test results and place further orders if they are needed. CASE MGT INIT Observed: 05/18/2017 Status: COMPLETED Source: [place] 1:21 PM CLINIC OTHER CAMPUS REPOSITORY HNO ID: [id number] Author: Karina KingRn) MITCHELL Mtz Service: Care Management Author Type: Registered Nurse Type: Care Mgt Initial Assessment Filed: 05/18/2017 1:52 PM Note Text: CARE MANAGEMENT: ASSESSMENT AND DISCHARGE PLAN SERVICE DATE: 05/18/2017 SERVICE TIME: 1:21 PM PRIMARY CARE PHYSICIAN: Bijan Perez MD ADMISSION STATUS: Inpatient POTENTIAL DISCHARGE PLANS Home Care Patient/Home Comfort Advisor Stated Goals: home with [facility] Health Insurance: Medicare, [employer] Living Arrangement: Home Lives With: brother Financial Resources: Retired Primary Contact: Extended Emergency Contact Information Primary Emergency Contact: Mary Knott Address: [address] [place] [address] [place] [address] Mobile Relation: Brother Supportive: Yes, Unable to assess at this time Other Important Patient Contacts: None CAREGIVER ASSESSMENT: Caregiver is ready, willing and able to meet the patient's needs as recommended by the inter-professional team? [facility] referral for HC Patient's transition needs and plan for meeting these needs: yes Does the patient have an acute stroke diagnosis, or has the patient had a stroke during this admission? No ADVANCE DIRECTIVES: Does Patient Have Advance Directives? No, Patient refused Does Patient Have Concerns About Advance Directives? No PRIOR TO ADMISSION: Baseline Mental Status: Alert AND Oriented, Person, Place , Time and Situation Functional Status: Independent Does Patient Currently Receive Any Community Services or Home Care? None Equipment Prior to Admission: Bi-level Positive Airway Pressure/Continuous Positive Airway Pressure Cane - Straight Tub bench/chair Walker ostomy supplies and grab bars in shower HEALTH: Health Issues Impacting Discharge Plan: None Health Literacy Issues: No PSYCHOSOCIAL: Is the Patient Psychosocially Complex? No Family/Patient Understanding of Illness/Diagnosis: yes Medication Adherence: Do you forget to take your medications? I do not forget to take my medication Have you ever stopped taking medications because you felt worse? None of the time Have you ever taken less of your medication than what was prescribed by your doctor? None of the time In the past 3 months, have you had issues obtaining one or more of your medications? None of the time Are you interested in bedside delivery of your medications? No Food Concerns: In the Last Month, Have You had Trouble Getting Food? No trouble getting food During the Last Month, Have You Worried Whether Your Food Would Run Out Before You Had Enough Money to Buy More? No Psychosocial Needs: None UTILIZATION: Last Admission Date: Previous admit date: 04/15/2017 Is this Within the Past 30 days? Yes Is This a Planned Readmission? No: New symptoms of underlying disease Followed Up with Appointment Prior to Admission: No appointment scheduled Where Did the Patient Come From? Home Intervention Taken to Avoid Future Readmission? To fix ostomy problems Has the Patient Been in a Half-Way Facility in the Past 30 days? No FREEDOM OF CHOICE EXPLAINED: Pt. has had [facility] in past, would like them again. HANDOFF COMMUNICATION: na Pt. Had surgery at 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 SIGNATURE: Karina Mtz RN PATIENT NAME: Maxx Knott DATE: May 18, 2017 TIME: 1:21 PM PAGER/CONTACT [phone] PROGRESS Observed: 05/18/2017 Status: COMPLETED Source: [place] 12:30 PM CLINIC OTHER CAMPUS REPOSITORY HNO ID: [id number] Author: Kvng Hui Service: Hospital Medicine Author Type: Physician Type: Progress Notes Filed: 05/18/2017 12:36 PM Note Text: Hospital Medicine Progress Note Patient Name: Maxx Knott Admission Date: 05/16/2017 Reason For Admission: Chest pain IMPRESSION AND PLAN: Active Hospital Problems Diagnosis - Chest pain - Colostomy prolapse (HCC) - CAD (coronary artery disease) - HTN (hypertension) - Chronic systolic congestive heart failure (HCC) Added automatically from request for surgery [id number] 1- Chest pain, better today, but not yet resolved, patient had stress test today (IMPRESSION: ?ABNORMAL STUDY: I. NO EVIDENCE OF ISCHEMIA. ?MODERATE LCX DISTRIBUTION INFARCTION REPRESENTING 13% ?OF THE VENTRICLE. II. NORMAL SIZE LEFT VENTRICLE WITH ABNORMAL GLOBAL AND REGIONAL FUNCTION. III.LVEF= 47%. Will notify Cardiology Dr. Stratton for further recommendation and work up. 2- Recent Flu infection patient didn't want to be on tamiflu, continue with supportive treatment. ? 3- Parastomal hernia, plans for surgical repair next month, for now continue with current treatment, and was evaluated by ostomy nurse and bag was changed. ? 4- HTN controlled. ? 5- Hypokalemia corrected. ? 6- YUSUF on CPAP. ? 7- Left ?kidney lesion (2.5cm) noted on CT scan, further evaluation with nonemergent renal mass protocol CT or MRI was recommended by radiology Patient Checklist Prophylaxis: VTE - Yes PPI - No Code Status: Full Disposition: Pending further cardiology recommendation. Kvng Hui MD Interval History: Patient was seen and examined for chest pain, had stress test today which came abnormal, still having mid chest pain 6/10 morphine does help, no further cough or dyspnea. PERTINENT ROS: No fever, chills , night sweats, off oxygen, no ankle edema, no abd pain, no dysuria Temp Av.6 ?C (97.8 ?F) Min: 36.3 ?C (97.3 ?F) Max: 37.1 ?C (98.8 ?F) Pulse Av.3 Min: 66 Max: 80 No Data Recorded Cuff BP Min: 100/52 Max: 168/66 Pain Score: 7/10 PHYSICAL EXAM: BP 142/80 Pulse 78 Temp 37.1 ?C (98.8 ?F) (Oral) Resp 18 Ht 172.7 cm (5' 8) Wt 93 kg (205 lb) SpO2 98% BMI 31.17 kg/m2 PHYSICAL EXAMINATION: General appearance: Well appearing, alert, awake oriented *3, in no acute distress, well-hydrated. Skin: Skin color, texture, turgor normal, no Rashes. Lungs: Lungs clear to auscultation. No wheezing, rhonchi, rales, non labored Heart: RRR, normal s1s2, no murmurs Abdomen: Abdomen soft, non-tender. Bowel sounds normal. Has some bowel loops in her stoma bag. Extremities: No edema, skin discoloration. MEDICATIONS: oxyCODONE-acetaminophen (PERCOCET) 5-325 mg tablet Take 1 tablet by mouth every 6 hours as needed. cyclobenzaprine (FLEXERIL) 10 mg tablet Take 1 tablet by mouth daily at bedtime. gabapentin (NEURONTIN) 300 mg capsule Take 2 capsules by mouth daily at bedtime for 90 days. metoprolol succinate ER (TOPROL XL) 100 mg Tb24 Take 1 tablet by mouth once daily. QUEtiapine (SEROQUEL) 200 mg tablet Take 2 tablets by mouth daily at bedtime. clopidogrel (PLAVIX) 75 mg tablet Take 1 tablet by mouth once daily. COMPOUNDED PRESCRIPTION Adhesive Removers: ConvaTec Sensi- Care No Sting30/boxICD 10: Prolapsed Stoma K94.09 COMPOUNDED PRESCRIPTION One Piece Ostomy Pouch Item Type: Coloplast Sensura One Piece Non-Sterile with Window 3-4 1/2'' ?5/BoxICD 10: Prolapsed Stoma K94.09 COMPOUNDED PRESCRIPTION Paste: Convatec Stomahesive 1 tubeICD 10: Prolapsed Stoma K 94.09 COMPOUNDED PRESCRIPTION Powder: Convatec Stomahesive 1 bottleICD 10: K 94.09 COMPOUNDED PRESCRIPTION Skin Barrier: Hollihesive 4x4 5/boxICD 10: Prolapsed Stoma K 94.09 pravastatin (PRAVACHOL) 40 mg tablet Take 40 mg by mouth once daily. MULTIVIT WITH IRON,MINERALS (MULTIVITAMIN AND MINERALS ORAL) Take 1 capsule by mouth. albuterol HFA (PROVENTIL HFA, VENTOLIN HFA) 90 mcg/actuation inhaler Inhale as instructed. fluticasone (FLONASE) 50 mcg/actuation nasal spray Use in the nose. nitroglycerin sublingual (NITROSTAT) 0.[address] ONE(1) TABLET UNDER TONGUE NEEDED FOR CHEST PAIN. IF NO PAIN RELIEF CALL 911 losartan (COZAAR) 100 mg tablet Take 100 mg by mouth once daily. aspirin 81 mg chewable tablet Take 81 mg by mouth once daily. amLODIPine (NORVASC) 10 mg tablet Take 10 mg by mouth once daily. furosemide (LASIX) 20 mg tablet Take 40 mg by mouth once daily as needed. oseltamivir (TAMIFLU) 75 mg capsule Take 1 capsule by mouth every 12 hours for 4 days. hydrALAZINE (APRESOLINE) 10 mg tablet Take 1 tablet by mouth three times daily. Current hospital medications: isosorbide mononitrate ER 60 mg tab(s) (IMDUR) 60 mg ORAL DAILY nitroglycerin sublingual 0.4 mg tab(s) (NITROQUICK) 0.4 mg SUBLINGUAL q 5 MIN PRN iv contrast (radiology procedure) INTRAVENOUS DIRECTED PRN gabapentin 600 mg cap(s) (NEURONTIN) 600 mg ORAL AT BEDTIME atorvastatin 10 mg tab(s) (LIPITOR) 10 mg ORAL AT BEDTIME losartan 100 mg tab(s) (COZAAR) 100 mg ORAL DAILY QUEtiapine 400 mg tab(s) (SEROquel) 400 mg ORAL AT BEDTIME albuterol HFA 90 mcg/actuation 2 Puff (PROVENTIL HFA, VENTOLIN HFA) 2 Puff INHALATION q 4 H PRN metoprolol succinate ER 100 mg tab(s) (TOPROL XL) 100 mg ORAL DAILY furosemide 40 mg tab(s) (LASIX) 40 mg ORAL DAILY aspirin 81 mg chewable tab(s) 81 mg ORAL DAILY clopidogrel 75 mg tab(s) (PLAVIX) 75 mg ORAL DAILY nicotine 14 mg/24 hr 1 Patch (NICODERM) 1 Patch TRANSDERMAL DAILY nicotine -- REMOVE patch OTHER DAILY nicotine - verify patch OTHER q 8 H enoxaparin 40 mg injection (LOVENOX) 40 mg SUBCUTANEOUS DAILY morphine 4 mg injection 4 mg INTRAVENOUS q 4 H PRN ondansetron (PF) 4 mg injection (ZOFRAN) 4 mg INTRAVENOUS q 6 H PRN Lab data: CBC: Recent Labs 05/17/17 03505/16/17 1225 05/13/17 031 WBC 7.64 8.16 10.02 HB 14.4 15.5 15.3 HCT 41.7 44.3 44.8 PLT 268 328 281 MCV 90.7 89.1 90.5 RDWCV -- -- 14.1 NEUTP -- -- 76.9 ABSNEUT -- -- 7.71* LYMPHP -- -- 8.6 MONOP -- -- 10.8 EODINP -- -- 3.4 COAG: Recent Labs 05/16/17 1225 INR 1.11 BMP: Recent Labs 05/17/17 03505/16/17 1225 05/13/17 031 GLUC 100* 139* 122* NA 142 136 141 K 3.7 3.1* 3.1* CHLOR 106 103 99 CO2 31 28 28 ANION 9 8 14 BUN 19* 12 14 CREAT 0.99 0.72 0.89 CHEM: Recent Labs 05/17/17 03505/16/17 1225 05/13/17 0315 ALB -- 3.7 -- TPROT -- 7.9 -- CA 8.7 9.5 9.4 MG 2.2 -- -- HEPATIC: Recent Labs 05/16/17 1225 ALKPHOS 106 ALT 49 AST 32 TBILI 0.3 CARDIAC: Recent Labs 05/13/17 0915 05/13/17 0315 TROPT <0.010 <0.010 Kvng Hui MD Pager #[phone] 12:31 PM May 18, 2017 NM CARDIAC PERF Observed: 05/18/2017 Status: F Source: [facility] STRESS/PHARM 10:58 AM HEALTH SYSTEM REPOSITORY Performed at [facility] APPROVED BY: NAVIN OVERTON MD 1-DAY Tc-TETROFOSMIN GATED SPECT MYOCARDIAL PERFUSION STUDY WITH REGADENOSON STRESS CLINICAL HISTORY: The patient is a 66-year-old male with a history of CABG, PCI in prior myocardial infarction who now presents with worsening chest pain and limited exercise capacity. PROCEDURE: SPECT myocardial perfusion imaging was performed at rest 30 minutes following the IV injection of 13.6 mCi of Tc-99m tetrofosmin. The patient received 0.4 mg of regadenoson via rapid IV push immediatel y followed by 33.6 mCi of Tc-99m tetrofosmin IV. Gated post stress tomographic imaging was performed 30-60 minutes later. STRESS RESULTS: The heart rate at baseline was 72 when the blood pressure was 128/60. At peak effect the heart rate increased to 88 and the blood pressure was 116 58. Patient had chest pain throughout the study did not change with stress. STUDY QUALITY: The overall quality of the study is good. IMAGE FINDINGS: CHAMBER SIZE: The right and left ventricles are normal in size. PERFUSION: Stress and rest SPECT images show moderate size area of inferior and inferolateral infarction representing 13% of the ventricle. There is no evidence of ischemia. FUNCTIONAL ASSESSMENT: The global left ventricular ejection fraction is 47% and there is akinesis of the inferior and inferolateral wall. IMPRESSION: ABNORMAL STUDY 1. NO EVIDENCE OF ISCHEMIA. MODERATE LCX DISTRIBUTION INFARCTION REPRESENTING 13% OF THE VENTRICLE. 2. NORMAL SIZE LEFT VENTRICLE WITH ABNORMAL GLOBAL AND REGIONAL FUNCTION. 3.LVEF= 47%. NURSING PROG Observed: 05/18/2017 Status: COMPLETED Source: [place] 10:11 AM CLINIC OTHER CAMPUS REPOSITORY HNO ID: [id number] Author: Kellee (Rn) MITCHELL Hsieh Service: Cardiovascular Testing Author Type: Registered Nurse Type: Nursing Progress Note Filed: 05/18/2017 10:12 AM Note Text: Fartun Nuc stress teaching done, test complete. Report to follow. PROGRESS Observed: 05/18/2017 Status: COMPLETED Source: [place] 8:35 AM CLINIC OTHER CAMPUS REPOSITORY HNO ID: [id number] Author: Gamal Stratton Service: (none) Author Type: Physician Type: Progress Notes Filed: 05/18/2017 8:44 AM Note Text: PROGRESS NOTE CARDIOLOGY SERVICE SERVICE DATE: 05/18/2017 SERVICE TIME: 8:37 AM Subjective INTERIM HISTORY: Chest pain - Colostomy prolapse (HCC) - CAD (coronary artery disease) - HTN (hypertension) - Chronic systolic congestive heart failure (HCC) Large Para Stomal Hernia,./ Diverticulosis. CARDIAC STATUSChest pain, better today, but not yet resolved, in view Scheduled For Stress test.tropo. 0.015. Ekg. Old Inf. Mi. Ndt. . No Change. Objective PHYSICAL EXAM: GENERAL: normal SKIN: Negative, Skin color, texture, turgor normal. No rashes or lesions. EYES: PERRLA, Negatives OROPHARYNX: Lips, mucosa, and tongue normal. Teeth and gums normal. Oropharynx normal. NECK: No jugulovenous distention, No carotid bruits, Carotid pulse normal contour, Supple LUNGS: Lungs clear to auscultation, Good diaphragmatic excursion CARDIAC: Normal S1 and S2; no rubs, murmurs, or gallops ABDOMEN: Abdomen soft, non-tender, BS normal, No masses or organomegaly EXTREMITIES: Extremities normal, no deformities, edema, clubbing or skin discoloration. Good capillary refill., No ulcers PULSES: 2+ radial, 2+ carotid The remainder of the physical exam is noncontributory. Body mass index is 31.17 kg/(m2). O2 Therapy: Continuous Positive Airway Pressure No Data Recorded Last 3 Encounter BP Readings: Date: BP: 05/16/2017 118/66 05/13/2017 127/60 04/18/2017 154/69 Pleasant, comfortable, not in acute distress. Awake, alert, oriented times 3. Moves all extremities. SKIN: No rash or lumps. HEENT: Normocephalic, face symmetrical. NECK: Supple, no JVD, no carotid bruit, no thyromegaly. LUNGS: Clear to auscultation bilaterally. CARDIAC: PMI present, RRR, S1 and S2, no S3 or S4, no additional heart sounds or murmurs. ABDOMEN: Soft, nontender, bowel sounds present. EXTREMITIES: No edema. PULSES: Peripheral pulses present. PULSES: 2+ radial, 2+ carotid DATA: Diagnostic tests reviewed for today's visit: Most recent labs CBC: No results for input(s): WBC, RBC, HB, HCT, PLT, MCV, MCH, MPV, RDW in the last 24 hours. BMP: No results for input(s): NA, K, CHLOR, CO2, BUN, CREAT, GLUC in the last 24 hours. CMP: No results for input(s): NA, K, CHLOR, CO2, BUN, CREAT, GLUC, TPROT, CA, MG, ALBUMIN, TBILI, ALKPHOS, ALT, AST, ANION in the last 24 hours. Cardiac Enzymes: No results for input(s): CK, MB, CKMB, TROPT in the last 24 hours. Renal Panel: No results for input(s): ALBUMIN, CREAT, BUN, GLUC, CA, P, CHLOR, K, CO2, NA in the last 24 hours. No results found for: TSH No results found for: HBA1C Cholesterol, Total Date Value Ref Range Status 10/02/2016 182 0 - 199 mg/dL Final Comment: <200 Desirable 200-240 Borderline >240 High HDL Cholesterol Date Value Ref Range Status 10/02/2016 37 >40 mg/dL Final LDL Calculated Date Value Ref Range Status 10/02/2016 125 mg/dL Final Comment: No CAD and with fewer than 2 CAD risk factors <160 mg/dl No CAD but with 2 or more CAD risk factors <130 mg/dl Definite CAD or other atherosclerotic disease <100 mg/dl Triglyceride Date Value Ref Range Status 10/02/2016 100 0 - 149 mg/dL Final Comment: < 200 Desirable Result invalid if not a fasting specimen. ASSESSMENT 6yoM admitted with Chest Pain, Influenza, known parastomal hernia ? PLAN recent Cath. 10/14.. Medical Treatment. Stress test To Follow. SIGNATURE: Gamal Stratton MD PATIENT NAME: Maxx Knott DATE: May 18, 2017 TIME: 8:37 AM PAGER/CONTACT #: GAMAL GILL MD, [facility], HOWIE BALES, PROGRESS Observed: 05/17/2017 Status: COMPLETED Source: [place] 2:32 PM CLINIC OTHER CAMPUS REPOSITORY O ID: [id number] Author: Kvng Hui Service: Hospital Medicine Author Type: Physician Type: Progress Notes Filed: 05/17/2017 2:37 PM Note Text: Hospital Medicine Progress Note Patient Name: Maxx Knott Admission Date: 05/16/2017 Reason For Admission: Chest pain IMPRESSION AND PLAN: Active Hospital Problems Diagnosis - Chest pain - Colostomy prolapse (HCC) - CAD (coronary artery disease) - HTN (hypertension) - Chronic systolic congestive heart failure (HCC) Added automatically from request for surgery [id number] 1- Chest pain, better today, but not yet resolved, in view of extensive heart disease patient will be scheduled for stress test in the morning. Continue with conservative treatment. 2- Recent Flu infection patient didn't want to be on tamiflu, continue with supportive treatment. 3- Parastomal hernia, plans for surgical repair next month, for now continue with current treatment, and was evaluated by ostomy nurse and bag was changed. 4- HTN controlled. 5- Hypokalemia corrected. 6- YUSUF on CPAP. 7- Left kidney lesion (2.5cm) noted on CT scan, further evaluation with nonemergent renal mass protocol CT or MRI was recommended by radiology Patient Checklist Prophylaxis: VTE - Yes PPI - No. Not indicated. Code Status: Full Disposition: Possible tomorrow after stress test. Kvng Hui MD Interval History: Patient was seen and examined for chest pain which is better today but not yet resolved 07/07. Seen by cardiology and plans for stress test in the morning, also seen by general surgery and his ostomy bag was replaced. PERTINENT ROS: No fever, chills , night sweats,off oxygen, no ankle edema, no abd pain, no dysuria Temp Av.7 ?C (98 ?F) Min: 36.3 ?C (97.3 ?F) Max: 36.9 ?C (98.4 ?F) Pulse Av.4 Min: 63 Max: 90 No Data Recorded Cuff BP Min: 125/99 Max: 191/92 Pain Score: 6/10 PHYSICAL EXAM: BP 140/71 Pulse 63 Temp 36.3 ?C (97.3 ?F) (Oral) Resp 18 Ht 172.7 cm (5' 8) Wt 93 kg (205 lb) SpO2 100% BMI 31.17 kg/m2 PHYSICAL EXAMINATION: General appearance: Well appearing, alert, awake oriented *3, in no acute distress, well-hydrated. Skin: Skin color, texture, turgor normal, no Rashes. Lungs: Lungs clear to auscultation. No wheezing, rhonchi, rales, non labored Heart: RRR, normal s1s2, no murmurs Abdomen: Abdomen soft, non-tender. Bowel sounds normal. Extremities: No edema, skin discoloration. MEDICATIONS: oxyCODONE-acetaminophen (PERCOCET) 5-325 mg tablet Take 1 tablet by mouth every 6 hours as needed. cyclobenzaprine (FLEXERIL) 10 mg tablet Take 1 tablet by mouth daily at bedtime. gabapentin (NEURONTIN) 300 mg capsule Take 2 capsules by mouth daily at bedtime for 90 days. metoprolol succinate ER (TOPROL XL) 100 mg Tb24 Take 1 tablet by mouth once daily. QUEtiapine (SEROQUEL) 200 mg tablet Take 2 tablets by mouth daily at bedtime. clopidogrel (PLAVIX) 75 mg tablet Take 1 tablet by mouth once daily. COMPOUNDED PRESCRIPTION Adhesive Removers: ConvaTec Sensi- Care No Sting30/boxICD 10: Prolapsed Stoma K94.09 COMPOUNDED PRESCRIPTION One Piece Ostomy Pouch Item Type: Coloplast Sensura One Piece Non-Sterile with Window 3/8-4 1/2'' ?5/BoxICD 10: Prolapsed Stoma K94.09 COMPOUNDED PRESCRIPTION Paste: Convatec Stomahesive 1 tubeICD 10: Prolapsed Stoma K 94.09 COMPOUNDED PRESCRIPTION Powder: Convatec Stomahesive 1 bottleICD 10: K 94.09 COMPOUNDED PRESCRIPTION Skin Barrier: Hollihesive 4x4 5/boxICD 10: Prolapsed Stoma K 94.09 pravastatin (PRAVACHOL) 40 mg tablet Take 40 mg by mouth once daily. MULTIVIT WITH IRON,MINERALS (MULTIVITAMIN AND MINERALS ORAL) Take 1 capsule by mouth. albuterol HFA (PROVENTIL HFA, VENTOLIN HFA) 90 mcg/actuation inhaler Inhale as instructed. fluticasone (FLONASE) 50 mcg/actuation nasal spray Use in the nose. nitroglycerin sublingual (NITROSTAT) 0.[address] ONE(1) TABLET UNDER TONGUE NEEDED FOR CHEST PAIN. IF NO PAIN RELIEF CALL 911 losartan (COZAAR) 100 mg tablet Take 100 mg by mouth once daily. aspirin 81 mg chewable tablet Take 81 mg by mouth once daily. amLODIPine (NORVASC) 10 mg tablet Take 10 mg by mouth once daily. furosemide (LASIX) 20 mg tablet Take 40 mg by mouth once daily as needed. oseltamivir (TAMIFLU) 75 mg capsule Take 1 capsule by mouth every 12 hours for 4 days. hydrALAZINE (APRESOLINE) 10 mg tablet Take 1 tablet by mouth three times daily. Current hospital medications: isosorbide mononitrate ER 60 mg tab(s) (IMDUR) 60 mg ORAL DAILY nitroglycerin sublingual 0.4 mg tab(s) (NITROQUICK) 0.4 mg SUBLINGUAL q 5 MIN PRN iv contrast (radiology procedure) INTRAVENOUS DIRECTED PRN gabapentin 600 mg cap(s) (NEURONTIN) 600 mg ORAL AT BEDTIME atorvastatin 10 mg tab(s) (LIPITOR) 10 mg ORAL AT BEDTIME losartan 100 mg tab(s) (COZAAR) 100 mg ORAL DAILY QUEtiapine 400 mg tab(s) (SEROquel) 400 mg ORAL AT BEDTIME oseltamivir 75 mg cap(s) (TAMIFLU) 75 mg ORAL q 12 H albuterol HFA 90 mcg/actuation 2 Puff (PROVENTIL HFA, VENTOLIN HFA) 2 Puff INHALATION q 4 H PRN metoprolol succinate ER 100 mg tab(s) (TOPROL XL) 100 mg ORAL DAILY furosemide 40 mg tab(s) (LASIX) 40 mg ORAL DAILY aspirin 81 mg chewable tab(s) 81 mg ORAL DAILY clopidogrel 75 mg tab(s) (PLAVIX) 75 mg ORAL DAILY nicotine 14 mg/24 hr 1 Patch (NICODERM) 1 Patch TRANSDERMAL DAILY nicotine -- REMOVE patch OTHER DAILY nicotine - verify patch OTHER q 8 H enoxaparin 40 mg injection (LOVENOX) 40 mg SUBCUTANEOUS DAILY morphine 4 mg injection 4 mg INTRAVENOUS q 4 H PRN ondansetron (PF) 4 mg injection (ZOFRAN) 4 mg INTRAVENOUS q 6 H PRN Lab data: CBC: Recent Labs 05/17/17 0351 05/16/17 1225 05/13/17 0315 WBC 7.64 8.16 10.02 HB 14.4 15.5 15.3 HCT 41.7 44.3 44.8 PLT 268 328 281 MCV 90.7 89.1 90.5 RDWCV -- -- 14.1 NEUTP -- -- 76.9 ABSNEUT -- -- 7.71* LYMPHP -- -- 8.6 MONOP -- -- 10.8 EODINP -- -- 3.4 COAG: Recent Labs 05/16/17 1225 INR 1.11 BMP: Recent Labs 05/17/17 0351 05/16/17 1225 05/13/17 0315 GLUC 100* 139* 122* NA 142 136 141 K 3.7 3.1* 3.1* CHLOR 106 103 99 CO2 31 28 28 ANION 9 8 14 BUN 19* 12 14 CREAT 0.99 0.72 0.89 CHEM: Recent Labs 05/17/17 0351 05/16/17 1225 05/13/17 0315 ALB -- 3.7 -- TPROT -- 7.9 -- CA 8.7 9.5 9.4 MG 2.2 -- -- HEPATIC: Recent Labs 05/16/17 1225 ALKPHOS 106 ALT 49 AST 32 TBILI 0.3 CARDIAC: Recent Labs 05/13/17 0915 05/13/17 0315 TROPT <0.010 <0.010 Kvng Hui MD Pager # [phone] 2:32 PM May 17, 2017 PROGRESS Observed: 05/17/2017 Status: COMPLETED Source: [place] 11:48 AM CLINIC OTHER CAMPUS REPOSITORY HNO ID: [id number] Author: Alison (Rn) MITCHELL Raman Service: Wound/Ostomy Author Type: Registered Nurse Type: Progress Notes Filed: 05/17/2017 11:55 AM Note Text: WOUND CARE NURSE PROGRESS NOTE SERVICE DATE: 05/17/2017 SERVICE TIME: 1040 REASON FOR VISIT: Ostomy TIME SPENT (minutes): 60 Documentation from Wound Expert can be found in scanned documents. Patient seen today by dispatcher bus and trolley team. Ostomy pouch changed. Stoma LUQ is red and moist, there is semiliquid brown stool present. When patient standing parastomal hernia and prolapsed stoma more pronounced, when patient lying hernia reduced somewhat as well as the prolapse. Spoke at length with patient regarding ostomy care, he has been leaving ostomy pouch on for 10 days, he is currently wearing an ostomy belt which was very tight, he states he wears belt related to leaking, we discussed leaking may be issue with pouch on for 10 days, we did leave belt on however loosened slightly. Will follow if remains in hospital. SIGNATURE: MAIA Mcmillan,RN,CWON PATIENT NAME: Maxx Knott DATE: May 17, 2017 TIME: 11:49 AM CONTACT#: [id number] HEMOGRAM Collected: 05/17/2017 Status: F Source: [facility] 3:51 AM HEALTH SYSTEM REPOSITORY TYPE CODE TESTS RESULT OUT OF REFERENCE UNITS RANGE LAB WBC(LOINC) 4.23-9.07 thou/cmm WBC 7.64 LAB RBC(LOINC) 4.63-6.08 mil/cmm Low RBC 4.60 LAB HGB(LOINC) 13.7-17.5 g/dL Hgb 14.4 LAB HCT(LOINC) 40.1-51.0 % Hct 41.7 LAB MCV(LOINC) 83.2-95.6 fl MCV 90.7 LAB MCH(LOINC) 25.7-32.2 pg MCH 31.3 LAB MCHC(LOINC) 32.3-36.5 % MCHC 34.5 LAB RDW(LOINC) 11.6-14.4 % RDW 14.3 LAB RDWSD(LOINC 36.1-45.8 fl ) High RDW SD 47.8 LAB PLT(LOINC) 141-365 thou/cmm Platelet 268 LAB MPV(LOINC) 8.7-12.0 fl MPV 9.9 Performed By: #### CBC1 #### [facility] [address] [place] [address] MAGNESIUM BLOOD Collected: 05/17/2017 Status: F Source: [facility] 3:51 AM HEALTH SYSTEM REPOSITORY TYPE CODE TESTS RESULT OUT OF REFERENCE UNITS RANGE LAB MAG(LOINC) 1.6-2.6 mg/dL Magnesium Blood 2.2 Performed By: #### MAG #### [facility] [address] [address] BASIC PANEL Collected: 05/17/2017 Status: F Source: [facility] 3:51 AM HEALTH SYSTEM REPOSITORY TYPE CODE TESTS RESULT OUT OF REFERENCE UNITS RANGE LAB NA(LOINC) 136-145 mEq/L Sodium Blood 142 LAB K(LOINC) 3.5-5.1 mEq/L Potassium Blood 3.7 LAB CL(LOINC) 98-107 mEq/L Chloride Blood 106 LAB CO2(LOINC) 21-32 mEq/L CO2 Blood 31 LAB GLU(LOINC) 70-99 mg/dL Glucose High Blood 100 LAB BUN(LOINC) 7-18 mg/dL BUN High Blood 19 LAB CREA(LOINC 0.67-1.17 mg/dL ) Creatinine Blood 0.99 LAB CA(LOINC) 8.5-10.1 mg/dL Calcium Blood 8.7 LAB ANGAP(LOIN 8-16 C) Anion Gap 9 Performed By: #### P8 #### [place] [address] MDRD GFR Collected: 05/17/2017 Status: F Source: [facility] 3:51 AM HEALTH SYSTEM REPOSITORY TYPE CODE TESTS RESULT OUT OF RANGE REFERENCE UNITS LAB GFRFN(LOINC >60mL/min/1.73m ) 2 eGFR >60 Result Comment: If the patient is , multiply the result by 1.210. Performed By: #### GFR #### [facility] [address] [address] CONSULT Observed: 05/17/2017 Status: COMPLETED Source: [place] 12:00 AM CLINIC OTHER CAMPUS REPOSITORY HNO ID: [id number] Author: Gamal Stratton Service: (none) Author Type: Physician Type: Consults Filed: 05/18/2017 8:56 AM Note Text: [facility] - Consultation PATIENT NAME: MAXX KNOTT CSN: [id number] DATE OF : 1950 SEX/AGE: M/66 PATIENT TYPE: I [place] [facility] [place] [facility] LOCATION: [facility] DATE OF SERVICE: 05/17/2017 He is a patient of Dr. Kvng Hui. PRIMARY CARE PHYSICIAN: Dr. Bijan Perez. REASON FOR CONSULT: Chest pain. Known coronary artery disease. HISTORY: Mr. Knott is 66-year-old male with a known history of ischemic cardiomyopathy, who had 3-vessel CABG in 2005 at the [facility]. He also had a history of having second-degree AV block for which he had a permanent pacemaker implant. The patient had a recent CAT on October 17, 2016, which showed moderately severe triple-vessel coronary artery disease with 100% occlusion of mid LAD and diagonal branch as well as dominant right coronary artery. The patient also had an occluded saphenous vein bypass graft to the marginal branch. The RHODES graft to LAD and vein graft to right coronary artery were patent. The patient's recent ejection fraction on the echocardiogram was reported 50%. The patient also had a mild left ventricular hypertrophy and inferior septal and inferior basal hypokinesis. His coronary risk factors include: 1. Hypertension. 2. Hyperlipidemia. 3. The patient is not diabetic. 4. Obesity. PERSONAL HISTORY: Off and on smoking for the last 40 years. Denies alcohol abuse. FAMILY HISTORY: Unremarkable. PAST MEDICAL HISTORY: 1. History of coronary risk factors including hypertension, hyperlipidemia and obesity. 2. Colostomy with prolapse. 3. Questionable history of CHF. 4. Diverticulitis. PHYSICAL EXAMINATION: GENERAL: The patient is alert, oriented, comfortable. VITAL SIGNS: Afebrile. Temperature is 36.3, pulse is 84 and regular, respirations are 20, blood pressure is 125/99, pulse ox 98%. NECK: JVP 0. No carotid bruits. Thyroid not enlarged. CARDIOVASCULAR: Sinus rhythm. Short systolic murmur. No gallop. No click. LUNGS: Decreased breath sounds. ABDOMEN: Soft, obese, and nontender. No organomegaly. Bowel sounds present. He has a vague stoma for the colostomy with possibly some prolapse. The patient states he also has an adjacent hernia. EXTREMITIES: No edema. No calf tenderness. REVIEW OF SYSTEMS: Review of further systems is unremarkable. LABS: Included a BMP, sodium 136, potassium 3.7, BUN 19, creatinine 99, sugar 100. Hematocrit 41.7. Echo report and CAT report have already been dictated. Creatinine was 0.99 and BUN 19. IMPRESSION: 1. Atypical nonexertional chest pain, rule out angina. 2. Known ischemic cardiomyopathy, status post coronary artery bypass graft. 3. Problem with colostomy and possibly prolapse. PLAN: 1. The patient's EKG shows sinus rhythm and no acute abnormalities. His cardiac enzymes are normal. 2. Patient has known coronary artery disease and has atypical chest pain. Recent CAT did not show any ischemic issue even though he has occluded graft in the right coronary artery. Plan is to do a Lexiscan Cardiolite. If the patient has no major areas of ischemia, we will continue to treat him aggressively with medical treatment. His medications reviewed. We will follow up the patient with you. Gamal Stratton MD Cardiology TS:melody /[id number] cc:Kvng Hui MD * Dr. Bijan Perez ED PROV NOTE Observed: 05/16/2017 Status: COMPLETED Source: [place] 9:05 PM CLINIC OTHER CAMPUS REPOSITORY HNO ID: [id number] Author: Parul Santillan MD Service: Emergency Medicine Author Type: Physician Type: ED Provider Notes Filed: 05/17/2017 6:57 AM Note Text: ED Provider Note Patient Name: Maxx Knott SERVICE DATE: 05/16/17 History Patient presents with: Chest Pain: started last pm late in the evening. Pt was getting ready to go to bed. Pain kept him up + Midsternal. + SOB + nausea. + sweating. pain is nonradiating. . Pt states he has been having a lot of problems with his colosomy in RLQ abd. HPI Patient is a 66-year-old white male with past medical history -CAD status post CABG, coronary stenting -Pacemaker -Diverticulitis and perforation is status post colostomy. Patient also has a peristomal hernia -Diagnosed with influenza flu on May 13, 2017 at the [facility] -Infrarenal abdominal aortic aneurysm, stable Patient was discharged after 24 hours of monitoring in the hospital and was supposed to take Tamiflu for his influenza but he did not take it as he could not afford it. He is here today because he feels like he is having chest discomfort and had a mechanical fall in the morning and probably hurt his hernia. -He describes the chest pain behind his sternum and nonradiating, 10 out of 10, worse with palpation, no associated nausea or vomiting, no diaphoresis. Patient took aspirin 325 and nitroglycerin ?2 at home with mild relief of symptoms. He keeps asking for morphine for pain relief. Patient is supposed to follow with pain management for control of his colostomy related pain. He also complains of pain over the colostomy site and hernia. He denies any diarrhea to me. I did review the records of recent admission. at that time his EKG and troponins were checked and they were normal but he did not have any cardiac workup done. Patient admits to being admitted and orders cardiac meds. PAST MEDICAL HISTORY Diagnosis Date - AAA (abdominal aortic aneurysm) without rupture ([facility]) 05/13/[address] a/p - CAD (coronary artery disease) 2005 CAD s/p CABG x3 ([id number]-imjcek, [facility]-XED-hqziir, [id number]asanqa) (2006 at [facility]) - Current every day smoker PT SMOKES A PIPE - Diverticulitis Perforated Diverticulitis - Pacemaker 02/16/2017 s/p PPM () 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 - Peritonitis ([facility]) PAST SURGICAL HISTORY Procedure Laterality Date - APPENDECTOMY HX - COLON SURGERY HX 07/2016 Chad's - HEART SURGERY HX triple bypass 10 yrs ago FAMILY HISTORY Problem Relation Age of Onset - Coronary Artery Disease Father - Hyperlipidemia Father Social History Social History Main Topics - Smoking status: Former Smoker Packs/day: 0.50 Years: 35.00 Types: Pipe, Cigarettes Quit date: 11/16/2016 - Smokeless tobacco: Never Used Comment: Quit cigarettes 11-16-16 now smoking 4 pipes as of 04-18-17 - Alcohol use No - Drug use: No - Sexual activity: Not Currently ALLERGIES Allergen Reactions - Altaseptic Unknown - Crestor [Rosuvastat* Myalgia - Hctz [Amiloride-Hyd* Swelling - Ramipril Swelling - Simvastatin Myalgia - Voltaren [Diclofena* Unknown Review of Systems Constitutional: Negative for chills and fever. HENT: Negative for ear discharge, ear pain, nosebleeds, rhinorrhea and sneezing. Eyes: Negative for photophobia, pain and redness. Respiratory: Positive for cough, shortness of breath and wheezing. Cardiovascular: Positive for chest pain. Negative for palpitations and leg swelling. Gastrointestinal: Positive for abdominal pain. Negative for constipation, diarrhea, nausea and vomiting. Pain over colostomy site. Genitourinary: Negative for dysuria, frequency, hematuria and urgency. Musculoskeletal: Negative for neck pain and neck stiffness. Neurological: Negative for tremors, weakness and light-headedness. Psychiatric/Behavioral: Negative for confusion, hallucinations and suicidal ideas. Physical Exam BP 132/77 Pulse 77 Temp (Src) 98.1 (Oral) Resp 18 Ht 5' 8 (1.73m) Wt 205 lb (93.0kg) SpO2 96% BMI 31.18 kg/(m2). Physical Exam Constitutional: He is oriented to person, place, and time. He appears well-developed and well-nourished. HENT: Head: Normocephalic and atraumatic. Eyes: EOM are normal. Pupils are equal, round, and reactive to light. Neck: Normal range of motion. Cardiovascular: Normal rate and regular rhythm. No murmur heard. Pulmonary/Chest: Effort normal. He has wheezes. Abdominal: Soft. There is tenderness. Colostomy site is red, Ruth- stomal hernia present Musculoskeletal: Normal range of motion. He exhibits no edema. Neurological: He is alert and oriented to person, place, and time. No cranial nerve deficit. Skin: Skin is warm. Psychiatric: Thought content normal. Diagnostic Testing ED Labs Ordered and Reviewed COMPREHENSIVE METABOLIC PANEL (AK,AV,EU,FV,HL,DEMARCO,MM,SP) - Abnormal; Notable for the following: Result Value Ref Range Potassium 3.1 (*) 3.5 - 5.1 mEq/L Glucose 139 (*) 70 - 99 mg/dL All other components within normal limits CBC + AUTO DIFF (AK,AV,EU,FV,HL,DEMARCO,MM,SP) - Abnormal; Notable for the following: RDW-SD 46.5 (*) 36.1 - 45.8 fl Seg. Neut. # 5.48 (*) 1.78 - 5.38 thou/cmm All other components within normal limits ECU TROPONIN I (AK ED) PROTHROMBIN TIME / PT (AK,AV,EU,FV,HL,DEMARCO,MM,SP) MDRD GFR ECU TROPONIN I (AR ED) Procedures Medical Decision Making / ED Course ED Course #1 Atypical chest pain -Patient otitis from the cardiac standpoint and has not recently had any cardiac workup and admit him for further cardiac workup. His EKG is unchanged from his old one and his troponins are negative -Pt has taken ASA 325 and Nitro -Will give fentanyl for pain relief #2 Influenza flu -Tamiflu and duoneb #3Colostomy -CT : No obstruction, no acute surgical intervention except -surgery consult per primary admitting team. -Will admit the patient to medical floor on cardiac telemetry Encounter Diagnosis ICD-10-CM 1. Atypical chest pain R07.89 2. Influenza J11.1 Plan The Patient was ADMITTED TO: Regular nursing floor. Condition at time of disposition: stable SIGNATURE: Javon Card MD Attending Note I evaluated the patient and personally participated in the nelson components. I agree with the resident's findings and plan as documented and have discussed the case and management of the patient's care with the resident. Signature: Parul Santillan MD Date: 05/17/2017 Time: 6:56 AM Javon Card Resident 05/16/17 [id number] Parul Santillan MD 05/17/17 0657 CONSULT Observed: 05/16/2017 Status: COMPLETED Source: [place] 8:17 PM CLINIC OTHER CAMPUS REPOSITORY HNO ID: [id number] Author: Isaias Tyson Service: General Surgery Author Type: Resident Type: Consults Filed: 05/16/2017 8:59 PM Note Text: Attestation signed by Lali Roach at 05/18/2017 11:37 AM I saw and evaluated the patient. Discussed with the resident and agree with resident's findings and plan as documented in the resident's note. Pt with a prolapsing transverse loop colostomy. This is reducible and colon is all pink/healthy/viable. He is having symptoms from this. He has seen a surgeon in [facility] and has plans to repair this in the near future. Rec: Cont current medical RX and he can continue with planned treatment Lali Roach MD GENERAL SURGERY CONSULT SERVICE DATE: 05/16/2017 SERVICE TIME: 8:17 PM REASON FOR CONSULT: Parastomal Hernia REQUESTING PHYSICIAN: Dr. Moreland PRIMARY CARE PHYSICIAN: Bijan Perez MD Subjective HISTORY OF PRESENT ILLNESS: Mr. Knott is a 66 year old male admitted to medicine with substernal chest pain and diaphoresis and influenza. Patient also complaining about abdominal pain from known prolapsing stoma and parastomal hernia. States that he is able to reduce it when he lays flat and applies pressure to the area. + CP, diaphoresis, AP, N Denies fever, chills, SOB, V, D, C, Dysuria, Hematuria, Melena, Hematochezia PAST MEDICAL HISTORY Diagnosis Date - AAA (abdominal aortic aneurysm) without rupture ([facility]) 05/13/[address] a/p - CAD (coronary artery disease) 2005 CAD s/p CABG x3 ([id number]-IXM-ixglab, RPS-PBG-rdbpsn, HTU-GC8-hgrqcwnq) (2005 at [facility]) - Current every day smoker PT SMOKES A PIPE - Diverticulitis Perforated Diverticulitis - Pacemaker 02/16/2017 s/p PPM () 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 - Peritonitis ([facility]) PAST SURGICAL HISTORY Procedure Laterality Date - APPENDECTOMY HX - COLON SURGERY HX 07/2016 [facility] - HEART SURGERY HX triple bypass 10 yrs ago FAMILY HISTORY Problem Relation Age of Onset - Coronary Artery Disease Father - Hyperlipidemia Father Social History Substance Use Topics - Smoking status: Former Smoker Packs/day: 0.50 Years: 35.00 Types: Pipe, Cigarettes Quit date: 11/16/2016 - Smokeless tobacco: Never Used Comment: Quit cigarettes 11-16-16 now smoking 4 pipes as of 04-18-17 - Alcohol use No Prescriptions Prior to Admission: oxyCODONE-acetaminophen (PERCOCET) 5-325 mg tablet Take 1 tablet by mouth every 6 hours as needed. Disp: Rfl: 05/15/2017 at Unknown time cyclobenzaprine (FLEXERIL) 10 mg tablet Take 1 tablet by mouth daily at bedtime. Disp: 90 tablet Rfl: 0 05/15/2017 at Unknown time gabapentin (NEURONTIN) 300 mg capsule Take 2 capsules by mouth daily at bedtime for 90 days. Disp: 90 capsule Rfl: 0 05/15/2017 at Unknown time metoprolol succinate ER (TOPROL XL) 100 mg Tb24 Take 1 tablet by mouth once daily. Disp: 90 tablet Rfl: 4 05/15/2017 at Unknown time QUEtiapine (SEROQUEL) 200 mg tablet Take 2 tablets by mouth daily at bedtime. Disp: 60 tablet Rfl: 0 05/15/2017 at Unknown time clopidogrel (PLAVIX) 75 mg tablet Take 1 tablet by mouth once daily. Disp: 30 tablet Rfl: 0 05/13/2017 COMPOUNDED PRESCRIPTION Adhesive Removers: ConvaTec Sensi- Care No Sting30/boxICD 10: Prolapsed Stoma K94.09 Disp: 1 Box Rfl: 0 05/13/2017 COMPOUNDED PRESCRIPTION One Piece Ostomy Pouch Item Type: Coloplast Sensura One Piece Non-Sterile with Window 07/05-4 05/01'' ?5/BoxICD 10: Prolapsed Stoma K94.09 Disp: 1 Box Rfl: 0 05/13/2017 COMPOUNDED PRESCRIPTION Paste: Convatec Stomahesive 1 tubeICD 10: Prolapsed Stoma K 94.09 Disp: 1 Tube Rfl: 0 05/13/2017 COMPOUNDED PRESCRIPTION Powder: Convatec Stomahesive 1 bottleICD 10: K 94.09 Disp: 1 Bottle Rfl: 0 05/13/2017 COMPOUNDED PRESCRIPTION Skin Barrier: Hollihesive 4x4 5/boxICD 10: Prolapsed Stoma K 94.09 Disp: 1 Box Rfl: 0 05/13/2017 pravastatin (PRAVACHOL) 40 mg tablet Take 40 mg by mouth once daily. Disp: Rfl: 05/15/2017 at Unknown time MULTIVIT WITH IRON,MINERALS (MULTIVITAMIN AND MINERALS ORAL) Take 1 capsule by mouth. Disp: Rfl: 05/15/2017 at Unknown time albuterol HFA (PROVENTIL HFA, VENTOLIN HFA) 90 mcg/actuation inhaler Inhale as instructed. Disp: Rfl: 05/13/2017 fluticasone (FLONASE) 50 mcg/actuation nasal spray Use in the nose. Disp: Rfl: 05/13/2017 nitroglycerin sublingual (NITROSTAT) 0.[address] ONE(1) TABLET UNDER TONGUE NEEDED FOR CHEST PAIN. IF NO PAIN RELIEF CALL 911 Disp: 25 tablet Rfl: 0 05/13/2017 losartan (COZAAR) 100 mg tablet Take 100 mg by mouth once daily. Disp: Rfl: 05/15/2017 at Unknown time aspirin 81 mg chewable tablet Take 81 mg by mouth once daily. Disp: Rfl: 05/15/2017 at Unknown time amLODIPine (NORVASC) 10 mg tablet Take 10 mg by mouth once daily. Disp: Rfl: 05/15/2017 at Unknown time furosemide (LASIX) 20 mg tablet Take 40 mg by mouth once daily as needed. Disp: Rfl: 05/13/2017 oseltamivir (TAMIFLU) 75 mg capsule Take 1 capsule by mouth every 12 hours for 4 days. Disp: 8 capsule Rfl: 0 hydrALAZINE (APRESOLINE) 10 mg tablet Take 1 tablet by mouth three times daily. Disp: 90 tablet Rfl: 2 05/13/2017 Current hospital medications: nitroglycerin sublingual 0.4 mg tab(s) (NITROQUICK) 0.4 mg SUBLINGUAL q 5 MIN PRN iv contrast (radiology procedure) INTRAVENOUS DIRECTED PRN enteric contrast (radiology procedure) ORAL DIRECTED PRN gabapentin 600 mg cap(s) (NEURONTIN) 600 mg ORAL AT BEDTIME atorvastatin 10 mg tab(s) (LIPITOR) 10 mg ORAL AT BEDTIME losartan 100 mg tab(s) (COZAAR) 100 mg ORAL DAILY QUEtiapine 400 mg tab(s) (SEROquel) 400 mg ORAL AT BEDTIME oseltamivir 75 mg cap(s) (TAMIFLU) 75 mg ORAL q 12 H albuterol HFA 90 mcg/actuation 2 Puff (PROVENTIL HFA, VENTOLIN HFA) 2 Puff INHALATION q 4 H PRN metoprolol succinate ER 100 mg tab(s) (TOPROL XL) 100 mg ORAL DAILY furosemide 40 mg tab(s) (LASIX) 40 mg ORAL DAILY aspirin 81 mg chewable tab(s) 81 mg ORAL DAILY clopidogrel 75 mg tab(s) (PLAVIX) 75 mg ORAL DAILY nicotine 14 mg/24 hr 1 Patch (NICODERM) 1 Patch TRANSDERMAL DAILY [START ON 05/17/2017] nicotine -- REMOVE patch OTHER DAILY [START ON 05/17/2017] nicotine - verify patch OTHER q 8 H enoxaparin 40 mg injection (LOVENOX) 40 mg SUBCUTANEOUS DAILY morphine 4 mg injection 4 mg INTRAVENOUS q 4 H PRN ondansetron (PF) 4 mg injection (ZOFRAN) 4 mg INTRAVENOUS q 6 H PRN potassium chloride ER 40 mEq tab(s) (K-DUR, KLOR-CON) 40 mEq ORAL ONCE ALLERGIES Allergen Reactions - Altaseptic Unknown - Crestor [Rosuvastat* Myalgia - Hctz [Amiloride-Hyd* Swelling - Ramipril Swelling - Simvastatin Myalgia - Voltaren [Diclofena* Unknown COMPLETE REVIEW OF SYSTEMS: PAIN ASSESSMENT: CURRENTLY HAVING PAIN; see HPI GENERAL: No weight loss, malaise or fevers HEENT: Negative for frequent or significant headaches, No changes in hearing or vision, no nose bleeds or other nasal problems NECK: Negative for lumps, goiter, pain and significant neck swelling RESPIRATORY: See HPI CARDIOVASCULAR: See HPI GI: See HPI : No history of dysuria, frequency or incontinence ARCHITECTURAL DRAFTSPERSON: NA MUSCULOSKELETAL: Negative for joint pain or swelling, back pain or muscle pain SKIN: Negative for lesions, rash, and itching PSYCH: Negative for sleep disturbance, mood disorder and recent psychosocial stressors HEMATOLOGY/LYMPHOLOGY: Negative for prolonged bleeding, bruising easily or swollen nodes ENDOCRINE: Negative for cold or heat intolerance, polyuria, polydipsia and goiter NEURO: No history of headaches, syncope, paralysis, seizures or tremors Objective PHYSICAL EXAM: GENERAL: Alert, no distress, cooperative SKIN: Skin color, texture, turgor normal. No rashes or lesions. LUNGS: no resp distress on NC, +cough CARDIAC: HDS ABDOMEN: S, ND, Diverting loop colostomy with large parastomal hernia --> patient refusing examination of the hernia at this time, +stool and gas in bag EXTREMITIES: Extremities normal, no deformities, edema, clubbing or skin discoloration. Good capillary refill., No ulcers NEURO: Grossly normal cognition, motor function, and cranial nerves III-XII The remainder of the physical exam is noncontributory. BP 125/99 Pulse 78 Temp 36.7 ?C (98.1 ?F) (Oral) Resp 18 Ht 172.7 cm (5' 8) Wt 93 kg (205 lb) SpO2 92% BMI 31.17 kg/m2 Body mass index is 31.17 kg/(m2). DATA: Diagnostic tests reviewed for today's visit: CBC, Coags, BMP, Mg, Phos Recent Labs 05/16/17 1225 WBC 8.16 HB 15.5 HCT 44.3 PLT 328 INR 1.11 NA 136 K 3.1* CHLOR 103 CO2 28 BUN 12 CREAT 0.72 GLUC 139* CA 9.5 Liver Function, Amylase, AND Lipase Recent Labs 05/16/17 1225 TPROT 7.9 ALB 3.7 ALT 49 AST 32 ALKPHOS 106 TBILI 0.3 Cardiac Enzymes IMAGING: CT ABD/PEL W IVCON Final Result IMPRESSION: There is a colostomy in the right abdomen with a large parastomal hernia containing multiple loops of small bowel. There are no findings to suggest small bowel obstruction. There is a 2.5 cm low-attenuation lesion in the upper pole of the left kidney which measures greater than fluid density. This may represent a complicated renal cyst or solid renal mass. Further evaluation with nonemergent renal mass protocol CT or MRI is recommended. Stable nodular thickening of the left adrenal gland. Attention on follow-up studies is recommended. Diverticulosis of the descending and sigmoid colon. XR CHEST 2V FRONTAL/LAT Final Result IMPRESSION: No acute process is seen. Interval placement of pacemaker since 12/03/2016 exam IMPRESSION/RECOMMENDATIONS 66yoM admitted with Chest Pain, Influenza, known parastomal hernia - med mgmt per primary - no acute surgical intervention indicated as there are no signs of strangulation Patient recently seen by Colorectal Surgery service at [facility] with documented note in EPIC on 05/13/17 regarding planned reversal of his stoma and repair of his hernia on 06/21/[address] Yoo. Patient encouraged to follow up with his surgical team as instructed previously. Will sign off, call with questions D/W Dr. Roach SIGNATURE: Isaias Tyson MD PATIENT NAME: Maxx Knott DATE: May 16, 2017 TIME: 8:17 PM PAGER/CONTACT #: [phone] TROPONIN I Collected: 05/16/2017 Status: F Source: [facility] 6:55 PM HEALTH SYSTEM REPOSITORY TYPE CODE TESTS RESULT OUT OF REFERENCE UNITS RANGE LAB TROP(LOINC) 0.015-0.045 ng/ml Troponin I 0.017 Performed By: #### TROP #### [place] [address] PLAN OF CARE Observed: 05/16/2017 Status: COMPLETED Source: [place] 6:46 PM CLINIC OTHER CAMPUS REPOSITORY HNO ID: [id number] Author: Gerard Sommer Content Engineer) Service: (none) Author Type: Sc[employer] Type: Plan of Care Filed: 05/16/2017 6:47 PM Note Text: MEDICATION HISTORY Patient Name:.Maxx Knott : 1950 Source of history:Patient: Reliability of source: Appears reliable, clearly identified: Medication name Medication Nonadherence Identified: No barriers noted The above information represents the best possible medication history: Yes Additional comments: Unable to verify with pt's pharmacy. Verified with pt. Allergies: ALLERGIES Allergen Reactions - Altaseptic Unknown - Crestor [Rosuvastat* Myalgia - Hctz [Amiloride-Hyd* Swelling - Ramipril Swelling - Simvastatin Myalgia - Voltaren [Diclofena* Unknown Preferred Pharmacy: [facility] [facility] Medications: Prior to Admission medications as of 05/16/17 1845 Medication Sig Last Dose Taking oxyCODONE-acetaminophen (PERCOCET) 5-325 mg tablet Take 1 tablet by mouth every 6 hours as needed. 05/15/2017 at Unknown time Yes cyclobenzaprine (FLEXERIL) 10 mg tablet Take 1 tablet by mouth daily at bedtime. 05/15/2017 at Unknown time Yes gabapentin (NEURONTIN) 300 mg capsule Take 2 capsules by mouth daily at bedtime for 90 days. 05/15/2017 at Unknown time Yes metoprolol succinate ER (TOPROL XL) 100 mg Tb24 Take 1 tablet by mouth once daily. 05/15/2017 at Unknown time Yes QUEtiapine (SEROQUEL) 200 mg tablet Take 2 tablets by mouth daily at bedtime. 05/15/2017 at Unknown time Yes clopidogrel (PLAVIX) 75 mg tablet Take 1 tablet by mouth once daily. Yes COMPOUNDED PRESCRIPTION Adhesive Removers: ConvaTec Sensi- Care No Sting 30/box ICD 10: Prolapsed Stoma K94.09 Yes COMPOUNDED PRESCRIPTION One Piece Ostomy Pouch Item Type: Coloplast Sensura One Piece Non-Sterile with Window 07/05-4 1/'' ?5/Box ICD 10: Prolapsed Stoma K94.09 Yes COMPOUNDED PRESCRIPTION Paste: Convatec Stomahesive 1 tube ICD 10: Prolapsed Stoma K 94.09 Yes COMPOUNDED PRESCRIPTION Powder: Convatec Stomahesive 1 bottle ICD 10: K 94.09 Yes COMPOUNDED PRESCRIPTION Skin Barrier: Hollihesive 4x4 5/box ICD 10: Prolapsed Stoma K 94.09 Yes pravastatin (PRAVACHOL) 40 mg tablet Take 40 mg by mouth once daily. 05/15/2017 at Unknown time Yes MULTIVIT WITH IRON,MINERALS (MULTIVITAMIN AND MINERALS ORAL) Take 1 capsule by mouth. 05/15/2017 at Unknown time Yes albuterol HFA (PROVENTIL HFA, VENTOLIN HFA) 90 mcg/actuation inhaler Inhale as instructed. Yes fluticasone (FLONASE) 50 mcg/actuation nasal spray Use in the nose. Yes nitroglycerin sublingual (NITROSTAT) 0.[address] ONE(1) TABLET UNDER TONGUE NEEDED FOR CHEST PAIN. IF NO PAIN RELIEF CALL 911 Yes losartan (COZAAR) 100 mg tablet Take 100 mg by mouth once daily. 05/15/2017 at Unknown time Yes aspirin 81 mg chewable tablet Take 81 mg by mouth once daily. 05/15/2017 at Unknown time Yes amLODIPine (NORVASC) 10 mg tablet Take 10 mg by mouth once daily. 05/15/2017 at Unknown time Yes furosemide (LASIX) 20 mg tablet Take 40 mg by mouth once daily as needed. Yes oseltamivir (TAMIFLU) 75 mg capsule Take 1 capsule by mouth every 12 hours for 4 days. hydrALAZINE (APRESOLINE) 10 mg tablet Take 1 tablet by mouth three times daily. Gerard Sommer Content Engineer pager [phone] May 16, 2017 6:46 PM HISTORY PHYSICAL Observed: 05/16/2017 Status: COMPLETED Source: [place] 5:38 PM CLINIC OTHER CAMPUS REPOSITORY HNO ID: [id number] Author: Jevon Moreland Service: Hospital Medicine Author Type: Physician Type: HANDP Filed: 05/16/2017 7:21 PM Note Text: DEPARTMENT OF HOSPITAL MEDICINE HISTORY AND PHYSICAL EXAM SERVICE DATE: 05/16/2017 SERVICE TIME: 5:38 PM Primary Care Physician: Bijan Perez MD NIGHT AND WEEKEND COVERAGE: From 7am - 7pm, please call [place] After 7pm, please call cross cover pager #[phone] Subjective CHIEF COMPLAINT: chest pain HPI: This is a 66 year old male with a past medical history as mentioned below who presents with chest pain. Retrosternal chest pain described as pressure, associated with sob, diaphoresis, no alleviating or aggravating factors. Pain started while pt was at rest. He noted cough and chills. Was diagnosed with flu 3 days ago but didn't take his tamiflu yet. Pt reported pain at 8/10 at time of eval. Noted increased of parastomal hernia size and worsening of abd pain. Some nausea but no vomiting. In ED, first troponin was negative and EKG was negative for ischemic changes.given his extensive cardiac hx and given uncontrolled abd pain, medicine called for admission. Cardiac hx includes CAD s/p CABG x3 in 2005, GREY to the proximal LAD along with balloon angioplasty of the first diagonal in 01/2017, second degree AV block s/p PPM 01/2017, CHF (EF 50%). PAST MEDICAL HISTORY Diagnosis Date - AAA (abdominal aortic aneurysm) without rupture ([facility]) 05/13/[address] a/p - CAD (coronary artery disease) 2005 CAD s/p CABG x3 ([id number]-AYA-hznfqt, JLJ-QKF-tkagyw, NAK-KD6-huduocuq) (2005 at [facility]) - Current every day smoker PT SMOKES A PIPE - Diverticulitis Perforated Diverticulitis - Pacemaker 02/16/2017 s/p PPM () 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 - Peritonitis ([facility]) PAST SURGICAL HISTORY Procedure Laterality Date - APPENDECTOMY HX - COLON SURGERY HX 07/2016 [facility]'s - HEART SURGERY HX triple bypass 10 yrs ago FAMILY HISTORY Problem Relation Age of Onset - Coronary Artery Disease Father - Hyperlipidemia Father Social History Substance Use Topics - Smoking status: Former Smoker Packs/day: 0.50 Years: 35.00 Types: Pipe, Cigarettes Quit date: 11/16/2016 - Smokeless tobacco: Never Used Comment: Quit cigarettes 11-16-16 now smoking 4 pipes as of 04-18-17 - Alcohol use No MEDICATIONS: Reviewed (Not in a hospital admission) ALLERGIES Allergen Reactions - Altaseptic Unknown - Crestor [Rosuvastat* Myalgia - Hctz [Amiloride-Hyd* Swelling - Ramipril Swelling - Simvastatin Myalgia - Voltaren [Diclofena* Unknown REVIEW OF SYSTEM: All other systems were reviewed and were negative except as per HPI. Objective PHYSICAL EXAM: BP 136/84 Pulse 88 Temp (Src) 97.7 (Oral) Resp 16 Ht 5' 8 (1.73m) Wt 205 lb (93.0kg) SpO2 96% BMI 31.18 kg/(m2). Gen: Alert, oriented, no distress, cooperative HENT: NCAT, no oral lesions Eyes: nonicteric, EOMI Neck: supple, no JVD CV: RRR, normal S1,S2, no murmur, Pulses: 1+ radial and DP Resp: non-labored, no wheezing or crackles GI: soft, colostomy bag in place full with large small bowel hernia, not able to reduce due to pain, Neuo: no focal deficit MS: normal ROM, no LE edema, no deformity Skin: warm, no rash Psych: appropriate mode and affect DATA: Diagnostic tests reviewed for today's visit: Most recent labs and imaging results. Most recent imaging Most recent EKG CBC: Recent Labs 05/16/17 1225 WBC 8.16 RBC 4.97 HB 15.5 HCT 44.3 PLT 328 MCV 89.1 MCH 31.2 MPV 10.4 RDW 14.2 BMP: Recent Labs 05/16/17 1225 NA 136 K 3.1* CHLOR 103 CO2 28 BUN 12 CREAT 0.72 GLUC 139* CMP: Recent Labs 05/16/17 1225 NA 136 K 3.1* CHLOR 103 CO2 28 BUN 12 CREAT 0.72 GLUC 139* TPROT 7.9 CA 9.5 TBILI 0.3 ALKPHOS 106 ALT 49 AST [address] abd/pelvis IMPRESSION: ? There is a colostomy in the right abdomen with a large parastomal hernia containing multiple loops of small bowel. ?There are no findings to suggest small bowel obstruction. ? ? ?There is a 2.5 cm low-attenuation lesion in the upper pole of the left kidney which measures greater than fluid density. ?This may represent a complicated renal ?cyst or solid renal mass. ?Further evaluation with nonemergent renal mass protocol CT or MRI is recommended. ? Stable nodular thickening of the left adrenal gland. ?Attention on follow-up studies is recommended. ? Diverticulosis of the descending and sigmoid colon. CXR process is seen. Interval placement of pacemaker since 12/03/2016 exam Assessment/Plan Principal Problem: Chest pain POA: Yes CAD (coronary artery disease) POA: Yes, s/p CABG x3 in 2005, GREY to the proximal LAD Chronic systolic congestive heart failure (HCC) POA: Yes second degree AV block s/p PPM 01/2017 Assessment AND Plan: - admit to medical floor on obs - start tele monitor, cycle troponin, consult cardiology given underlying CAD and high risk - resume home asa, plavix, BB and losartan, nitro SN and morphine PRN Recent Flu- start Tamiflu given increased risk of complication Tobacco use- nicotine patch, personal counselor on quitting Parastomal hernia Diverticulitis c/b perforation s/p colostomy - worseing pain and increased in size, CT abd negative for obstruction as above - not able to reduce due to pain, pain control, consult to general surgery HTN (hypertension) POA: Yes Assessment AND Plan: resume home meds and monitor BP HypoK- replace and recheck YUSUF- on CPAP L kidney lesion (2.5cm) noted on CT scan, further evaluation with nonemergent renal mass protocol CT or MRI was recommended by radiology VTE Prophylaxis: Lovenox 40mg Sub Q Daily Disposition: Home Plan of care discussed with: Patient Code Status: FULL CODE SIGNATURE: Jevon Moreland MD PATIENT NAME: Maxx Knott DATE: May 16, 2017 TIME: 5:38 PM PAGER/CONTACT #: ED NOTE Observed: 05/16/2017 Status: COMPLETED Source: [place] 4:31 PM CLINIC OTHER CAMPUS REPOSITORY HNO ID: [id number] Author: Lay (Rn) MITCHELL Phelan Service: Emergency Medicine Author Type: Registered Nurse Type: ED Notes Filed: 05/16/2017 4:31 PM Note Text: Rt called for breathing tx ED NOTE Observed: 05/16/2017 Status: COMPLETED Source: [place] 4:23 PM CLINIC OTHER CAMPUS REPOSITORY HNO ID: [id number] Author: Lay KingRn) MITCHELL Phelan Service: Emergency Medicine Author Type: Registered Nurse Type: ED Notes Filed: 05/16/2017 4:23 PM Note Text: Back from ct CT ABDOMEN AND PELVIS Observed: 05/16/2017 Status: F Source: [facility] WITH CONTRAST 4:14 PM HEALTH SYSTEM REPOSITORY Performed at [facility] APPROVED BY: Cherise Cedeño MD EXAMINATION: CT ABDOMEN AND PELVIS WITH IV CONTRAST CLINICAL HISTORY: Abdominal pain, trouble with colostomy bag TECHNIQUE: CT of the abdomen and pelvis was performed using standard technique, scanning from just above the dome of the diaphragm to the symphysis pubis. Sagittal and coronal reconstructions were performed. M: CTAP_3 Contrast: 150 mL Omnipaque 300 IV Contrast oral: None CT Dose-Length Product: 725.62 mGy*cm CT Dose Reduction Employed: 1. Automated exposure control (AEC) was used. COMPARISON: CT abdomen and pelvis 01/10/2017 and 12/23/2016. RESULT: Lower thorax: Lung bases are unremarkable. There are pacemaker leads in the region of the right atrium and right ventricle. Liver: No mass. Normal liver morphology. Biliary: No bile duct dilation. Gallbladder is unremarkable. Spleen: No mass. No splenomegaly. Pancreas: No mass or duct dilation. Adrenals: Stable or nodular thickening of the left adrenal gland. Right adrenal gland is unremarkable. Kidneys: No hydronephrosis. There is a 2.5 cm low-attenuation lesion in the upper pole of the left kidney which measures greater than fluid density and may represent a complicated cyst or solid renal l esion. There are subcentimeter cysts in both kidneys. GI tract: There is a colostomy in the right upper quadrant. There is a parastomal hernia containing multiple loops of small bowel. There are no dilated loops of large or small bowel to suggest bowel o bstruction at the level of the hernia. No bowel wall thickening or edema. The appendix is not identified. There are multiple diverticula throughout the descending and sigmoid colon without definite e vidence of diverticulitis. No evidence of free air, pneumatosis or portal venous gas. Lymph nodes: No abdominal or pelvic lymphadenopathy. Mesentery/Peritoneum: No ascites or mass. Retroperitoneum: No mass. Vasculature: Abdominal aorta is normal in caliber with mild amount of atherosclerotic calcification. Pelvis: No mass, ascites or fluid collection. The bladder is unremarkable. Bones/Soft Tissues: Degenerative changes in the lumbar spine. IMPRESSION: There is a colostomy in the right abdomen with a large parastomal hernia containing multiple loops of small bowel. There are no findings to suggest small bowel obstruction. There is a 2.5 cm low-attenuation lesion in the upper pole of the left kidney which measures greater than fluid density. This may represent a complicated renal cyst or solid renal mass. Further evalu ation with nonemergent renal mass protocol CT or MRI is recommended. Stable nodular thickening of the left adrenal gland. Attention on follow-up studies is recommended. Diverticulosis of the descending and sigmoid colon. ED NOTE Observed: 05/16/2017 Status: COMPLETED Source: [place] 3:56 PM [facility]INIC OTHER [place] REPOSITORY HNO ID: [id number] Author: Lay KingRn) MITCHELL Phelan Service: Emergency Medicine Author Type: Registered Nurse Type: ED Notes Filed: 05/16/2017 3:56 PM Note Text: Pt to ct [facility] TROPONIN I Collected: 05/16/2017 Status: F Source: [facility] 3:42 PM HEALTH SYSTEM REPOSITORY TYPE CODE TESTS RESULT OUT OF REFERENCE UNITS RANGE LAB ERTRP(LOINC 0.015-0.045 ng/ml ) [facility] Troponin I < 0.015 Performed By: #### ERTRP #### [facility] [address] [place] [address] ED NOTE Observed: 05/16/2017 Status: COMPLETED Source: [place] 1:45 PM CLINIC OTHER CAMPUS REPOSITORY HNO ID: [id number] Author: Jennifer KingRn) MITCHELL Ramos Service: Emergency Medicine Author Type: Registered Nurse Type: ED Notes Filed: 05/16/2017 1:45 PM Note Text: Patient states that chest is unchanged despite NTG. MD aware. Awaiting orders. ED PROV NOTE Observed: 05/16/2017 Status: COMPLETED Source: [place] 1:29 PM CLINIC OTHER CAMPUS REPOSITORY HNO ID: [id number] Author: Parul Santillan MD Service: Emergency Medicine Author Type: Physician Type: ED Provider Notes Filed: 05/16/2017 5:56 PM Note Text: HPI 66-year-old male with past medical history of CABG and coronary artery disease who presents today with chief complaint of chest pain. He states it is midsternal in nature and is associated with shortness of breath and nausea. He also has a history of a ostomy which he states has been bothering him. He states he fell recently and has had a larger hernia next to the ostomy since that time. PE Gen:awake, alert CV:RRR Pulm:occ wheezing throughout, good aeration, no increased WOb Abd:soft, +parastomal hernia present, stool in bag DDX:ACS, CHF, PNA ED course and plan Chest x-ray did not show any acute pathology. The patient was given a breathing treatment with some improvement in symptoms. The patient had troponins ?2 that were negative. His heart score is 6 and will be admitted. CT a/p obtained and stable. Will admit for CP. Attending Note I evaluated the patient and personally participated in the nelson components. I agree with the resident's findings and plan as documented and have discussed the case and management of the patient's care with the resident. Signature: Parul Santillan MD Date: 05/16/2017 Time: 1:29 PM Parul Santillan MD 05/16/17 1756 ED NOTE Observed: 05/16/2017 Status: COMPLETED Source: [place] 12:53 PM [facility] REPOSITORY HNO ID: [id number] Author: Jennifer KingRn) MITCHELL Ramos Service: Emergency Medicine Author Type: Registered Nurse Type: ED Notes Filed: 05/16/2017 12:54 PM Note Text: Patient states that he ell this am and hit his ostomy. Ostomy is extremely swollen. CHEST 2 VIEWS Observed: 05/16/2017 Status: F Source: [facility] 12:37 PM HEALTH SYSTEM REPOSITORY Performed at [facility] APPROVED BY: Bubba Hemphill MD EXAM TITLE: CHEST 2 VIEWS DATE: 05/16/2017 12:37 COMPARISON: 12/03/2016 CLINICAL INDICATION: Chest pain TECHNIQUE: PA and lateral views of the chest are presented. FINDINGS: Status post pacemaker placement bipolar leads. Sternotomy wires. The cardiac silhouette is within normal limits. The thoracic aorta and mediastinum are unremarkable. The costophrenic angles are clear bilaterally. No focal infiltrates are noted. The pulmonary vessels are within normal limits. The bony structures are intact. IMPRESSION: No acute process is seen. Interval placement of pacemaker since 12/03/2016 exam ED NOTE Observed: 05/16/2017 Status: COMPLETED Source: [place] 12:33 PM CLINIC OTHER CAMPUS REPOSITORY HNO ID: [id number] Author: Carla (Rn) MITCHELL Bashir Service: Emergency Medicine Author Type: Registered Nurse Type: ED Notes Filed: 05/16/2017 12:34 PM Note Text: Pt to rad room with tech. Tech requested to take pt to rm 6 after CXR. COMPREHENSIVE PANEL Collected: 05/16/2017 Status: F Source: [facility] 12:25 PM HEALTH SYSTEM REPOSITORY TYPE CODE TESTS RESULT OUT OF REFERENCE UNITS RANGE LAB NA(LOINC) 136-145 mEq/L Sodium Blood 136 LAB K(LOINC) 3.5-5.1 mEq/L Low Potassium Blood 3.1 LAB CL(LOINC) 98-107 mEq/L Chloride Blood 103 LAB CO2(LOINC) 21-32 mEq/L CO2 Blood 28 LAB GLU(LOINC) 70-99 mg/dL Glucose High Blood 139 LAB BUN(LOINC) 7-18 mg/dL BUN Blood 12 LAB CREA(LOINC 0.67-1.17 mg/dL ) Creatinine Blood 0.72 LAB CA(LOINC) 8.5-10.1 mg/dL Calcium Blood 9.5 LAB ALB(LOINC) 3.4-5.0 g/dL Albumin Blood 3.7 LAB TP(LOINC) 6.4-8.2 g/dL Total Protein 7.9 LAB AST(LOINC) 9-37 U/L AST-SGOT Blood 32 LAB ALT(LOINC) 12-78 U/L ALT-SGPT Blood 49 LAB ALKP(LOINC 46-116 U/L ) Alk Phosphatase 106 LAB BILIT(LOIN 0.2-1.0 mg/dL C) Total Bilirubin 0.3 LAB ANGAP(LOIN 8-16 C) Anion Gap 8 Performed By: #### P14 #### [address] [place], [place] [address] MDRD GFR Collected: 05/16/2017 Status: F Source: [facility] 12: PM HEALTH SYSTEM REPOSITORY TYPE CODE TESTS RESULT OUT OF RANGE REFERENCE UNITS LAB GFRFN(LOINC >60mL/min/1.73m ) 2 eGFR >60 Result Comment: If the patient is , multiply the result by 1.210. Performed By: #### GFR #### [facility] [address] [place] [address] ECU TROPONIN I Collected: 05/16/2017 Status: F Source: [facility] 12: PM HEALTH SYSTEM REPOSITORY TYPE CODE TESTS RESULT OUT OF REFERENCE UNITS RANGE LAB ERTRP(LOINC 0.015-0.045 ng/ml ) ECU Troponin I 0.020 Performed By: #### ERTRP #### [facility] [address] [place] [address] HEMOGRAM/DIFF Collected: 05/16/2017 Status: F Source: [facility] REPOSITORY TYPE CODE TESTS RESULT OUT OF REFERENCE UNITS RANGE LAB WBC(LOINC) 4.23-9.07 thou/cmm WBC 8.16 LAB RBC(LOINC) 4.63-6.08 mil/cmm RBC 4.97 LAB HGB(LOINC) 13.7-17.5 g/dL Hgb 15.5 LAB HCT(LOINC) 40.1-51.0 % Hct 44.3 LAB MCV(LOINC) 83.2-95.6 fl MCV 89.1 LAB MCH(LOINC) 25.7-32.2 pg MCH 31.2 LAB MCHC(LOINC 32.3-36.5 % ) MCHC 35.0 LAB RDW(LOINC) 11.6-14.4 % RDW 14.2 LAB RDWSD(LOIN 36.1-45.8 fl C) RDW SD High 46.5 LAB PLT(LOINC) 141-365 thou/cmm Platelet 328 LAB MPV(LOINC) 8.7-12.0 fl MPV 10.4 LAB SEG(LOINC) % Seg Neutrophil 67.2 LAB IGRE(LOINC % ) Immature Grans 0.40 LAB LYMPH(LOIN % C) Lymphocyte 25.4 LAB MNO(LOINC) % Monocyte 6.4 LAB EOSIN(LOIN % C) Eosinophil 0.5 LAB BASO(LOINC % ) Basophil 0.1 LAB SEGN(LOINC 1.78-5.38 thou/cmm ) Abs. High Neut 5.48 LAB IGAB(LOINC 0.00-0.05 thou/cmm ) Abs Immature Grans 0.03 LAB LYMN(LOINC 0.84-2.85 thou/cmm ) Abs. Lymph 2.07 LAB MONON(LOIN 0.30-0.82 thou/cmm C) Abs. [place] 0.52 LAB EOSN(LOINC 0.04-0.54 thou/cmm ) Abs. Eosin 0.04 LAB BASON(LOIN 0.01-0.08 thou/cmm C) Abs. Baso 0.01 Result Comment: Smear scanned; tech agrees with automated differential Performed By: #### CBCD1 #### [place] [address] PROTIME Collected: 05/16/2017 Status: F Source: [facility] 12:25 PM HEALTH SYSTEM REPOSITORY TYPE CODE TESTS RESULT OUT OF REFERENCE UNITS RANGE LAB PTI(LOINC) 9.3-11.9 sec Prothrombin Time 11.6 LAB INR(LOINC) INR 1.11 Result Comment: Standard Therapy 2.0-3.0 High Dose 2.5-3.5 Performed By: #### PT #### [place] [address] ED NOTE Observed: 05/16/2017 Status: COMPLETED Source: [place] 12:15 PM [facility] REPOSITORY HNO ID: [id number] Author: Carla (Rn) MITCHELL Bashir Service: Emergency Medicine Author Type: Registered Nurse Type: ED Notes Filed: 05/16/2017 12:15 PM Note Text: Pt took ASA at home and NTG. With minimal relief. ED NOTE Observed: 05/16/2017 Status: COMPLETED Source: [place] 12:10 PM [facility] REPOSITORY HNO ID: [id number] Author: Carla Toth) Krysten, RN Service: Emergency Medicine Author Type: Registered Nurse Type: ED Notes Filed: 05/16/2017 12:11 PM Note Text: started last pm late in the evening. Pt was getting ready to go to bed. Pain kept him up + Midsternal. + SOB + nausea. + sweating. pain is nonradiating. . Pt states he has been having a lot of problems with his colosomy in RLQ abd. +productive cough green sputum. + SOB at rest. - pedal edema. CNCO Observed: 05/15/2017 Status: COMPLETED Source: [place] 12:00 AM [facility] REPOSITORY Letter Text [facility] [place] Rios Yoo MD, PANCHITO, HETAL Department of Colorectal Surgery / [place] [address] Office: [phone] Appts: [phone] May 15, 2017 Via [employer] Next Day Delivery Maxx Knott [address] [place], [place] [id number] CCF#: [id number] Dear Mr. Knott: Our office has made several attempts to reach you via telephone without avail. I need you to call my office to schedule your preoperative testing and other required procedures prior to your surgery scheduled June 21, 2017. I need you to urgently call our office at [phone] to schedule these tests by or before early May so that you can have your surgery on June 21, 2017. I look forward to hearing from you. Sincerely, Rios Yoo MD FACS, FASCRS [facility] Observed: 05/15/2017 Status: COMPLETED Source: [place] 12:00 AM [facility] REPOSITORY Patient Update (CORSMN) MAXX KNOTT ([id number]) 1950 M Date Time Provider Department 05/15/17 Ro YOO During your visit today, we recorded the following information about you: Allergies As of Date: 05/15/2017 Noted Allergy Reaction ALTASEPTIC 12/17/2016 16 - Unknown CRESTOR (ROSUVASTATIN CALCIUM) 12/17/2016 17 - Myalgia HCTZ (AMILORIDE-HYDROCHLOROTHIAZI*12/17/2016 7 - Swelling RAMIPRIL 12/17/2016 7 - Swelling SIMVASTATIN 12/17/2016 17 - Myalgia VOLTAREN (DICLOFENAC SODIUM) 12/17/2016 16 - Unknown Date Reviewed: 05/13/2017 Reviewed by: Raquel (Rn) MITCHELL Marques - Fully Assessed Primary Visit Diagnosis: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] Other Visit Diagnoses:Diverticulitis [K57.92] Chronic systolic congestive heart failure (HCC) [I50.22] Order(s):SURGICAL REQUEST - ELECTIVE [[id number]] Order #: [id number]: 1 PADMINI WHAT TO EXPECT DURING YOUR HOSPITAL STAY [[id number]] Order #: [id number]: 1 CBC [SQCBC] Order #: [id number] FUTURE COMP METABOLIC PANEL [SQCMP] Order #: [id number] FUTURE TYPE + SCREEN,30 DAY [[id number]] Order #: [id number] FUTURE REFER FOR ADMIT INTERVIEW [[id number]] Order #: [id number] [facility] [[id number]] Order #: [id number] CONSULT TO PATIENT EDUCATION [[id number]] Order #: [id number]: 1 CONSULT TO ANESTHESIOLOGY [900] Order #: [id number]: 1 CONSULT TO INT MED-IMPACT [[id number]] Order #: [id number]: 1 ENTEROSTOMAL THERAPY, MITCHELL [[id number]] Order #: [id number]: 1 Prescriptions as of 05/15/2017 Sig: X OSELTAMIVIR 75 MG CAPSULE Take 1 capsule by mouth every* CYCLOBENZAPRINE 10 MG TABLET Take 1 tablet by mouth daily * GABAPENTIN 300 MG CAPSULE Take 2 capsules by mouth dominik* METOPROLOL SUCCINATE ER 100 M* Take 1 tablet by mouth once d* QUETIAPINE 200 MG TABLET Take 2 tablets by mouth daily* X HYDRALAZINE 10 MG TABLET Take 1 tablet by mouth three * CLOPIDOGREL 75 MG TABLET Take 1 tablet by mouth once d* COMPOUNDED PRESCRIPTION Adhesive Removers: ConvaTec S* COMPOUNDED PRESCRIPTION One Piece Ostomy Pouch Item T* COMPOUNDED PRESCRIPTION Paste: Convatec Stomahesive * COMPOUNDED PRESCRIPTION Powder: Convatec Stomahesive * COMPOUNDED PRESCRIPTION Skin Barrier: Hollihesive 4x4* MULTIVITAMIN AND MINERALS ORAL Take 1 capsule by mouth. X PRAVASTATIN 40 MG TABLET Take 40 mg by mouth once dominik* ALBUTEROL SULFATE HFA 90 MCG/* Inhale as instructed. FLUTICASONE 50 MCG/ACTUATION * Use in the nose. 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 Chest pain [R07.9] INVALID FOR* Priority: A More... Hypertensive crisis [I16.9] INVALID FOR* Priority: B More... Healthcare maintenance [Z00.00] INVALID FOR* Priority: M More... Malnutrition of mild degree (HCC) [E44.1] INVALID FOR* Priority: L More... CHF (congestive heart failure) (HCC) [I50.9] INVALID FOR* Diverticulitis [K57.92] INVALID FOR* More... Chronic systolic congestive heart failure (HCC)*INVALID FOR* More... Follow-up and Disposition History Recorded Encounter Status:Closed by Ro YOO MD on 05/26/17 ED NOTE Observed: 05/14/2017 Status: COMPLETED Source: [place] 8:26 AM [facility] REPOSITORY HNO ID: [id number] Author: Lenin Toth) MITCHELL Sullivan Service: Emergency Medicine Author Type: Registered Nurse Type: ED Notes Filed: 05/14/2017 8:26 AM Note Text: Discharge instructions for flu symptoms discussed with patient. Rx given for tamiflu and discussed use with patient. Pt instructed to follow up with internal medicine, cardiology and colorectal surgery as soon as possible. Pt verbalized understanding of discharge instructions. ED NOTE Observed: 05/14/2017 Status: COMPLETED Source: [place] 7:51 AM [facility] REPOSITORY HNO ID: [id number] Author: Lenin Toth) MITCHELL Sullivan Service: Emergency Medicine Author Type: Registered Nurse Type: ED Notes Filed: 05/14/2017 7:51 AM Note Text: Assumed care of patient. Diagnosis of flu like symptoms for CDU observation. Patient is currently laying in bed. AxOx3. Ambulates independently. Plan of care to monitor vital signs and medicate as ordered, provide for patient comfort and safety. VSS. Discussed fall risk and plan for mobility. Bed low and locked position with rails up 2x. has an ID Band on , has an Allergy Band on, is in the bed/cart with Side Rails up x2 and has the Call Alvarez within reach. ED PROV NOTE Observed: 05/14/2017 Status: COMPLETED Source: [place] 7:47 AM [facility] REPOSITORY O ID: [id number] Author: Jonny Verdin) Edwin Service: Emergency Medicine Author Type: Nurse Practitioner Type: ED Provider Notes Filed: 05/14/2017 6:22 PM Note Text: [facility] CLINICAL DECISION UNIT NOTE, [facility] CC: Flulike symptoms Dx: Encounter Diagnosis ICD-10-CM 1. Influenza J11.1 2. Atypical chest pain R07.89 3. Colostomy prolapse (HCC) K94.09 4. Renal lesion N28.9 5. AAA (abdominal aortic aneurysm) without rupture ([facility]) I71.4 6. Hypokalemia E87.6 HPI: Mr. Maxx Knott is a 66 year old, male with a PMHx of CAD status post CABG ?3, a VBG and bradycardia status post pacemaker placement, diverticulitis with perforation status post loop colostomy with prolapse actively followed by colorectal surgery Dr. Yoo who presented to the ED with a complaint of body aches, fever, shortness of breath, productive cough with yellow sputum, any nose, fatigue, chest pain with cough and deep inspiration, and abdominal pain over colostomy stoma site ?3 days. Patient denies sick contacts. He did not receive his flu vaccine this year. He denies associated nausea, vomiting, diarrhea, constipation, diaphoresis, palpitations, dysuria, frequency or urgency. He was transferred to the CDU for symptomatic control, cardiac rule out, and continued observation. This morning he reports continued myalgias, cough, and fatigue, but improved abdominal pain and chest pain. Review of Systems: General: Positive for fever, myalgias and fatigue. Negative for unplanned changes in weight HEENT: Positive for runny nose. Negative for vision changes, SCHWARZ, speech or swallow difficulty, nasal congestion Neck: Negative for sore throat, pain or stiffness Resp: Positive for shortness of breath and productive cough with yellow sputum CV: Positive for chest pain. Negative for heart palpitations, or diaphoresis : Negative for burning, pain, hematuria, hesitancy, or urgency GI: Positive for abdominal pain. Negative for n/v/d/c Psych: Negative for MS changes/confusion Skin: Negative for rash, wound or jaundice MSK: Negative for joint pain or swelling, or gait changes Neuro: Negative for tingling, numbness, dizziness or weakness PAST MEDICAL HISTORY Diagnosis Date - AAA (abdominal aortic aneurysm) without rupture ([facility]) 05/13/[address] a/p - CAD (coronary artery disease) 2005 CAD s/p CABG x3 (WMBA-QYX-isfgux, NKL-NBX-jtneqr, RRO-GC2-tmxsyhhg) (2006 at [facility]) - Current every day smoker PT SMOKES A PIPE - Diverticulitis Perforated Diverticulitis - Pacemaker 02/16/2017 s/p PPM () 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 gabapentin (NEURONTIN) 300 mg capsule Take 2 capsules by mouth daily at bedtime for 90 days. metoprolol succinate ER (TOPROL XL) 100 mg Tb24 Take 1 tablet by mouth once daily. QUEtiapine (SEROQUEL) 200 mg tablet Take 2 tablets by mouth daily at bedtime. hydrALAZINE (APRESOLINE) 10 mg tablet Take 1 tablet by mouth three times daily. clopidogrel (PLAVIX) 75 mg tablet Take 1 tablet by mouth once daily. COMPOUNDED PRESCRIPTION Adhesive Removers: ConvCorrelorc Sensi- Care No Sting30/boxICD 10: Prolapsed Stoma K94.09 COMPOUNDED PRESCRIPTION One Piece Ostomy Pouch Item Type: Coloplast Sensura One Piece Non-Sterile with Window 07/05-4 1/2'' ?5/BoxICD 10: Prolapsed Stoma K94.09 COMPOUNDED PRESCRIPTION Paste: Convatec Stomahesive 1 tubeICD 10: Prolapsed Stoma K 94.09 COMPOUNDED PRESCRIPTION Powder: Convatec Stomahesive 1 bottleICD 10: K 94.09 COMPOUNDED PRESCRIPTION Skin Barrier: Hollihesive 4x4 5/boxICD 10: Prolapsed Stoma K 94.09 pravastatin (PRAVACHOL) 40 mg tablet Take 40 mg by mouth once daily. MULTIVIT WITH IRON,MINERALS (MULTIVITAMIN AND MINERALS ORAL) Take 1 capsule by mouth. albuterol HFA (PROVENTIL HFA, VENTOLIN HFA) 90 mcg/actuation inhaler Inhale as instructed. fluticasone (FLONASE) 50 mcg/actuation nasal spray Use in the nose. nitroglycerin sublingual (NITROSTAT) 0.[address] ONE(1) TABLET UNDER TONGUE NEEDED FOR CHEST PAIN. IF NO PAIN RELIEF CALL 911 losartan (COZAAR) 100 mg tablet Take 100 mg by mouth once daily. aspirin 81 mg chewable tablet Take 81 mg by mouth once daily. amLODIPine (NORVASC) 10 mg tablet Take 10 mg by mouth once daily. furosemide (LASIX) 20 mg tablet Take 40 mg by mouth once daily as needed. oseltamivir (TAMIFLU) 75 mg capsule Take 1 capsule by mouth every 12 hours for 4 days. SOCIAL HISTORY: Social History Marital status: Spouse name: Years of education: 12 Number of children: 3 Occupational History Occupation Employer [employer]* Retired Social History Main Topics Smoking status: Former Smoker Packs/day: 0.50 Years: 35.00 Types: Pipe, Cigarettes Quit date: 11/16/2016 Smokeless status: Never Used Comment: Quit cigarettes 11-16-16 now smoking 4 pipes as of 04-18-17 Alcohol use: No Drug use: No Sexual activity: Not Currently FAMILY HISTORY Problem Relation Age of Onset - Coronary Artery Disease Father - Hyperlipidemia Father OBJECTIVE: BP 127/60 Pulse 82 Temp 36.7 ?C (98 ?F) (Oral) Resp 18 Ht 172.7 cm (5' 8) Wt 89 kg (196 lb 3.4 oz) SpO2 95% BMI 29.83 kg/m2 CONST: AOx3, WN/WD, no respiratory distress EYES: Normal lids, non-injected conjunctiva, and non-icteric sclera; EOM grossly intact HENT: MMM, hearing grossly intact per baseline, normal oropharynx without exudates, grossly intact dentition; speech and swallow w/o difficulty NECK: Neck supple with full ROM, no nuchal rigidity, no lymphadenopathy RESP: CTAB; no wheezes, rales, or rhonchi; symmetric expansion without inc work of breathing, cyanosis, retractions or accessory muscle use CV: RRR, no M/R/G; 2+ radial and DP pulse b/l, non-bounding, non-thready, No CW TTP, No JVD, No b/l lower extremity swelling GI: Soft, non-tender to palpation, no hepatosplenomegaly, no hernia; no rebound or guarding; no Garcia's; no McBurney's : No CVAT, bladder non-tender to palpation PSYCH: Converses appropriately, pleasant and neutral mood, congruent affect SKIN: Normal inspection; no rash; no petechiae; non-icteric MUSC: AMEZQUITA. ROM per baseline NEURO: CN 2-12 grossly intact; gait per baseline without assistive devices CDU course: Vitals reviewed and stable. Nursing and triage notes reviewed. Records from yesterday's emergency department visit as well as past medical records were reviewed. Pt placed on monitor. All lab work and images reviewed. EKG INTERPRETATION: Time: 1248 RHYTHM: Normal sinus rhythm at 80 beats per minute AXIS: Normal axis INTERVALS: Normal AK interval QRS COMPLEX: Normal ST SEGMENT: Normal ST-T segments QTc INTERVAL: Prolonged at 461 COMPARED WITH PRIOR: unchanged x 3 and from previous on 04/18/17 Interpreted by: Rita Pineda CNP Diagnosis: 1.influenza, atypical chest pain, colostomy prolapse, renal lesion, AAA, hypokalemia Plan: The patient was seen in the CDU. Vitals remained stable. EKG unchanged. No events in cardiac monitoring overnight. Chest x-ray unremarkable. CT of the abdomen and pelvis showed a large parastomal hernia without obstruction, stable indeterminate left renal lesions, and stable 3.1 cm infrarenal AAA. CBC unremarkable. BMP unremarkable except for potassium of 3.1 (given 80 mEq). UA negative. High sensitivity troponin 17 and 16. Troponin T negative ?2. Influenza A positive. Tamiflu was started. He was also provided with IV fluid hydration, DuoNeb's, Dilaudid, morphine, and Zofran for nausea. Colorectal surgery was consulted and reduced his ostomy after sugar application. They recommended keeping his appointment with Dr. Yoo in 2 weeks but recommended requesting a sooner appointment for discussion of reversing his ostomy. His ostomy appliance was changed by the ostomy nurse prior to discharge. The patient had improvement in symptoms overnight, therefore he is being discharged home to follow-up with his primary care provider within 1 week for this visit and to discuss his newly discovered renal lesions. He is also follow-up with cardiology to discuss the infrarenal AAA. Rx provided for Tamiflu twice a day ?5 days. Patient amenable to discharge and follow up plan. Patient was ambulating and tolerating PO prior to discharge. 1. Discharge home 2. Follow up with your PCP within 1 week regarding this visit and further work up of your lesions on your kidney 3. Follow up with colorectal surgery regarding your parastomal prolapse within 1 week 4. Follow up with cardiology regarding your enlarged abdominal aortic aneurysm within 1 week 5. Take the Tamiflu twice a day (morning and evening) for 4 more days. NEXT DOSE TONIGHT AT 8PM 6. Be sure to drink plenty of water to stay well hydrated 7. Continue all home medications as previously prescribed 8. Return to the Emergency Department with any change or worsening of symptoms The patient was discharged home with verbal and written instructions. They were instructed to return as needed for persistent or worsening symptoms or any new concerns. Jonny Pineda 05/14/17 1822 ED NOTE Observed: 05/14/2017 Status: COMPLETED Source: [place] 7:08 AM [facility] REPOSITORY HNO ID: [id number] Author: Raquel Toth) MITCHELL Marques Service: Emergency Medicine Author Type: Registered Nurse Type: ED Notes Filed: 05/14/2017 7:08 AM Note Text: Handoff report given to MITCHELL Fuentes. ED NOTE Observed: 05/14/2017 Status: COMPLETED Source: [place] 3:37 AM [facility] REPOSITORY HNO ID: [id number] Author: Raquel Marques RN Service: Emergency Medicine Author Type: Registered Nurse Type: ED Notes Filed: 05/14/2017 3:52 AM Note Text: Pt is 66 year old male in with diagnosis of flu-like symptoms. Sleeping quietly. Arouses easily with verbal stimuli. No distress. Pt c/o pain. See pain assessment. Comfort measures provided. Pain medication not due yet. Pt comfortable to wait until pain medication is due. Resps even and unlabored at rest. No cough noted. Pt denies shortness of breath. Ostomy Lt side abdomen ostomy stoma red and large, prolapsed. Ostomy draining liquid, brown stool. Tele- SR. Droplet precautions maintained. Nursing Plan of Care: Continue observation in CDU Obtain and monitor vital signs per protocol Treat pain and reassess per protocol Continue to monitor for patient safety and comfort Monitor cardiac telemetry Respiratory therapy Droplet precautions ED NOTE Observed: 05/13/2017 Status: COMPLETED Source: [place] 11:44 PM [facility] REPOSITORY HNO ID: [id number] Author: Raquel Marques RN Service: Emergency Medicine Author Type: Registered Nurse Type: ED Notes Filed: 05/13/2017 11:49 PM Note Text: Pt is 66 year old male in with diagnosis of flu-like symptoms. Sleeping quietly. Arouses easily with verbal stimuli. No distress. Pt c/o pain. See pain assessment. Comfort measures provided. Resps even and unlabored at rest. No cough noted. Pt denies shortness of breath at rest. Ostomy Lt side abdomen ostomy stoma red and large, prolapsed. Ostomy draining liquid, brown stool. Pt self care with ostomy. Tele- SR. Droplet precautions maintained. Nursing Plan of Care: Continue observation in CDU Obtain and monitor vital signs per protocol Treat pain and reassess per protocol Continue to monitor for patient safety and comfort Monitor cardiac telemetry Respiratory therapy Droplet precautions ED NOTE Observed: 05/13/2017 Status: COMPLETED Source: [place] 10:55 PM [facility] REPOSITORY HNO ID: [id number] Author: Hue KingRn) Vanesa RN Service: Emergency Medicine Author Type: Registered Nurse Type: ED Notes Filed: 05/13/2017 11:01 PM Note Text: Patient requests medicine for c/o abdominal pain. ED NOTE Observed: 05/13/2017 Status: COMPLETED Source: [place] 8:03 PM [facility] HNO ID: [id number] Author: Raquel Marques RN Service: Emergency Medicine Author Type: Registered Nurse Type: ED Notes Filed: 05/13/2017 8:23 PM Note Text: Pulse ox 95% on O2 4L through CPAP. ED NOTE Observed: 05/13/2017 Status: COMPLETED Source: [place] 7:57 PM [facility] HNO ID: [id number] Author: Raquel Marques RN Service: Emergency Medicine Author Type: Registered Nurse Type: ED Notes Filed: 05/13/2017 8:23 PM Note Text: Respiratory therapist increased O2 to 4L through CPAP. ED NOTE Observed: 05/13/2017 Status: COMPLETED Source: [place] 7:55 PM [facility] HNO ID: [id number] Author: Raquel Marques RN Service: Emergency Medicine Author Type: Registered Nurse Type: ED Notes Filed: 05/13/2017 7:56 PM Note Text: Pulse ox 88% on CPAP. No distress. Respiratory therapist notified. ED NOTE Observed: 05/13/2017 Status: COMPLETED Source: [place] 7:05 PM [facility] HNO ID: [id number] Author: Raquel Marques RN Service: Emergency Medicine Author Type: Registered Nurse Type: ED Notes Filed: 05/13/2017 7:30 PM Note Text: Assumed care of pt. Pt is 66 year old male in with diagnosis of flu-like symptoms. Sleeping quietly. Arouses easily with verbal stimuli. No distress. Pt c/o pain. See pain assessment. Comfort measures provided. Pain medication not due yet. Pt comfortable to wait until pain medication is due. Resps even and unlabored at rest. Pt states that he has a moist cough with green/yellow sputum, none observed at this time. Pt wearing CPAP with O2 2L. Pt denies shortness of breath at rest. Ostomy Lt side abdomen ostomy stoma red and large, prolapsed. Ostomy draining liquid, brown stool. Pt self care with ostomy. Tele- SR. Droplet precautions maintained. Nursing Plan of Care: Continue observation in CDU Obtain and monitor vital signs per protocol Treat pain and reassess per protocol Continue to monitor for patient safety and comfort Monitor cardiac telemetry Respiratory therapy Droplet precautions ED NOTE Observed: 05/13/2017 Status: COMPLETED Source: [place] 7:05 PM [facility] REPOSITORY HNO ID: [id number] Author: Raquel KingRn) MITCHELL Marques Service: Emergency Medicine Author Type: Registered Nurse Type: ED Notes Filed: 05/13/2017 7:30 PM Note Text: Patient has an ID Band on , has an Allergy Band on, is in the bed/cart with Side Rails up x2 and has the Call Alvarez within reach. ED NOTE Observed: 05/13/2017 Status: COMPLETED Source: [place] 5:52 PM [facility] REPOSITORY HNO ID: [id number] Author: Daysi Campa (Cook Helper Vegetable) REILLY Ahn Service: Emergency Medicine Author Type: Registered Resp Therapist Type: ED Notes Filed: 05/13/2017 5:54 PM Note Text: Called to room for patient desaturating, while wearing CPAP. Normally does not wear oxygen with CPAP. Placed on 2L bleedin. Will monitor. Spo2 92%. ED NOTE Observed: 05/13/2017 Status: COMPLETED Source: [place] 4:47 PM [facility] REPOSITORY HNO ID: [id number] Author: Daysi Drew) REILLY Ahn Service: Emergency Medicine Author Type: Registered Resp Therapist Type: ED Notes Filed: 05/13/2017 4:47 PM Note Text: Neb complete. HR 71. Lungs with partial clearing noted, slight rhonchi remains. [place] tray provided for patient. ED NOTE Observed: 05/13/2017 Status: COMPLETED Source: [place] 3:58 PM [facility] REPOSITORY HNO ID: [id number] Author: Sarah KingRn) MITCHELL Cortez Service: Emergency Medicine Author Type: Registered Nurse Type: ED Notes Filed: 05/13/2017 4:05 PM Note Text: Pt awakened fro VS. VSS. Afebrile. Resps even and unlabored. Lungs diminished throughout. 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 Pt MAEX4. Tele-SR. Alarms 50/150. Cardiac r/o completed. Pt voiding via urinal. Pt emptied ostomy with difficulty. +output from ostomy is liquid and brown. Pt c/o 8/10 ostomy pain. STRIP MACHINE OPERATOR aware of pt complaints. Call light in reach. Flu precautions remain. ED NOTE Observed: 05/13/2017 Status: COMPLETED Source: [place] 3:56 PM [facility] REPOSITORY HNO ID: [id number] Author: Vandana (Cook Helper Vegetable) RIELLY Melchor Service: Respiratory Therapy Author Type: Registered Resp Therapist Type: ED Notes Filed: 05/13/2017 4:04 PM Note Text: Patient has his own bipap to use tonight. Patient wears CPAP of 15. Doctor aware. HIGH SENS TROPONIN T Collected: 05/13/2017 Status: F Source: [place] 12:57 PM [facility] REPOSITORY TYPE CODE TESTS RESULT OUT OF REFERENCE UNITS RANGE LAB HSTN <12 ng/L High High Sensitivity BRAYAN 18 Result Comment: When assessing risk for acute coronary syndromes: In patients undergoing blood draw greater than or equal to 2 hours from symptom onset, with history of very low to moderate risk and non-ischemic ECG, an initial hs-Troponin T less than 12 ng/L AND a 1 hour delta hs-Troponin T less than 3 ng/L should be considered very low risk for 30 day MACE. Performed By: #### HSTNT #### [facility] [address], [place] [address] ED NOTE Observed: 05/13/2017 Status: COMPLETED Source: [place] 12:20 PM [facility] REPOSITORY HNO ID: [id number] Author: Sarah (Rn) MITCHELL Cortez Service: Emergency Medicine Author Type: Registered Nurse Type: ED Notes Filed: 05/13/2017 12:26 PM Note Text: Pt is AOx3. Pt speaking in full sentences. Pt is continuing to be TAPIA while using urinal. Pt placed on albuterol treatment from RT. RT at bedside with this RN. Pt is denies prod cough. Pt lungs diminished throughout. Pt denies CP. Tele-SR-Pt has permanent pacemaker. Droplet precautions maintained. MAEX4 with generalized weakness. Pt is voiding via urinal. Pt output is 60Occ after Lasix. Pt is tolerating PO lunch and has eaten two meal trays per request. Denies n+v. Pt denies dizziness on ambulation. Pt with self care ostomy intact and prolapsed. Pt with +good output of liquids brown stools. Call light in reach. No concerns voiced. Pt pain 5-6/10 at ostomy site. Rest and reposition encouraged. Pt brother remains at bedside. ED NOTE Observed: 05/13/2017 Status: COMPLETED Source: [place] 12:17 PM [facility] REPOSITORY HNO ID: [id number] Author: Sarah KingRn) MITCHELL Cortez Service: Emergency Medicine Author Type: Registered Nurse Type: ED Notes Filed: 05/13/2017 12:17 PM Note Text: Patient has an ID Band on , has an Allergy Band on, is in the bed/cart with Side Rails up x2 and has the Call Lavarez within reach. ED NOTE Observed: 05/13/2017 Status: COMPLETED Source: [place] 11:28 AM [facility] REPOSITORY HNO ID: [id number] Author: Sarah Toth) MITCHELL Cortez Service: Emergency Medicine Author Type: Registered Nurse Type: ED Notes Filed: 05/13/2017 12:01 PM Note Text: Pt is AOx3. Resps even and unlabored. Pt is able to speak in full sentences. Pt is TAPIA to BR at timed. Pt placed on oxygen 2 liters NC. Pt pulse ox dropped 89%-90% on RA. Pulse ox is 95% on 2LNC. MAEX4 with generalized weakness noted. Lungs diminished throughout. Pt c/o SOB and chest tightness last night. Tele-SR. Pt with pace maker. Pt c/o ostomy pain 5/10 and medicated with percocet per order. Pt ostomy s prolapsed from coughing. Pt is tolerating PO clear liquids at this time. CT completed. cardiac r/o protocol explained. Pt voiding via urinal. Call light in reach. Oriented to unit. Nursing Plan of Care -continue observation -manage and control pain -telemtry -oxygen therapy -Ct scan PROGRESS Observed: 05/13/2017 Status: COMPLETED Source: [place] 10:48 AM [facility] REPOSITORY HNO ID: [id number] Author: Maranda Pastrana Ct Service: (none) Author Type: (none) Type: Progress Notes Filed: 05/13/2017 10:48 AM Note Text: Radiology Service Progress Note PATIENT NAME: Maxx Knott DATE OF SERVICE: May 13, 2017 TIME: 10:48 AM PATIENT IDENTITY VERIFICATION COMPLETED USING TWO (2) METHODS: Patient confirmed name verbally and ID band matches.. PATIENT GENDER DATA: Male PATIENT RELEVANT IMPLANT DATA REVIEWED: Yes CONTRAST INDUCED NEPHROPATHY RISK FACTORS: Patient age > 60 years CREATININE: Creatinine Date Value Ref Range Status 05/13/2017 0.89 0.73 - 1.22 mg/dL Final 04/16/2017 0.88 0.73 - 1.22 mg/dL Final 04/16/2017 0.90 0.73 - 1.22 mg/dL Final eGFR-All Other Races Date Value Ref Range Status 05/13/2017 >60 . Final Comment: eGFR (Estimated GFR) Units of measure: mL/min/1.73 meters squared eGFR is derived from the reexpressed MDRD Study equation using the following parameters: serum creatinine, age, gender and race. The creatinine assay has been calibrated to be traceable to IDMS. An eGFR <60 mL/min/1.73m2 for >3 months is consistent with chronic kidney disease. Refer to KDOQI guidelines for clinical interpretation. In patients with unstable renal function, e.g. those with acute kidney injury, the eGFR may not accurately reflect actual GFR. eGFR- Date Value Ref Range Status 05/13/2017 >60 Final P.O.C.T. RESULTS: POC done: Yes, See Lab Tab May 13, 2017 RADIOLOGIST NOTIFIED?: No ALLERGIES: Reviewed and unchanged CONTRAST ALLERGY: NO. PERIPHERAL IV ACCESS: Inpatient: see LDA documentation RADIOLOGY DEPARTMENT: CT; Exam(s) Completed: Abdomen/Pelvis SIGNED BY: Maranda Pastrana Ct May 13, 2017 10:[address] ABD/PEL W IVCON Observed: 05/13/2017 Status: F Source: [place] 10:47 AM [facility] REPOSITORY * * *Final Report* * * DATE OF EXAM: May 13 2017 10:47AM [facility] 0530 - CT ABD/PEL W IVCON / PROCEDURE REASON: Abdominal pain--Colostomy dysfunction (HCC) * * * * Physician Interpretation * * * * EXAMINATION: CT ABDOMEN AND PELVIS WITH IV CONTRAST CLINICAL HISTORY: Abdominal pain. History of diverticulitis status post diverting loop colostomy. TECHNIQUE: CT of the abdomen and pelvis was performed using standard technique, scanning from just above the dome of the diaphragm to the symphysis pubis. M: CTAP_3 Contrast: IV: 150 ml of Omnipaque 300 Oral: 850 ml of 50ML Omnipaque 240 W 850ML Water Rectal administration of 100 ml of 50ML Omnipaque [address] Radiation dose: Integrated Dose-length product (DLP) for this visit = 572 mGy*cm. CT Dose Reduction Employed: Automated exposure control (AEC) COMPARISON: 12/17/2016 RESULT: Liver: No mass. Biliary: No bile duct dilation. Gallbladder is unremarkable. Spleen: No mass. No splenomegaly. Pancreas: No mass or duct dilation. Adrenals: Stable left adrenal nodular thickening. Kidneys: Stable 2.6 cm indeterminate above water attenuation exophytic left interpolar lesion (2:53) and stable 1.4 cm left lower pole indeterminate above water attenuation lesion (2:59). Stable subcentimeter low-attenuation lesions in both kidneys too small to characterize. No hydronephrosis or renal calculi. GI tract: No dilation or wall thickening. Right-sided diverting colostomy. Large parastomal hernia, which contains fat, nondilated small bowel loops and transverse colon. This is mildly increased in size since prior study. No bowel obstruction. Descending and sigmoid colonic diverticulosis without diverticulitis. Lymph nodes: No abdominal or pelvic lymphadenopathy. Mesentery/Peritoneum: No ascites or mass. Retroperitoneum: No mass. Vasculature: The celiac axis and SMA are patent. The portal vein and branches, splenic vein, SMV, and hepatic veins are patent. 3.1 cm infrarenal abdominal aortic aneurysm, stable. Pelvis: No mass, ascites or fluid collection. Enlarged prostate. Bones/Soft Tissues: Degenerative changes. Lower thorax: Patchy groundglass opacities in the left lower lobe (2:17-19), may be infectious/inflammatory. IMPRESSION: Large parastomal hernia, mildly increased since 12/17/2016. No associated bowel obstruction. Stable indeterminate left renal lesions. These may be further evaluated with dedicated renal imaging, as clinically indicated. Stable 3.1 cm infrarenal abdominal aortic aneurysm. Mild patchy left lower lobe groundglass opacities, may be infectious/inflammatory. Prep Room Supervisor: MAGI Transcribe Date/Time: May 13 2017 10:48A Dictated by : GARRICK GOLDMAN MD This examination was interpreted and the report reviewed and electronically signed by: DAVID DALE JR, MD on May 13 2017 11:42AM EST [id number] ED NOTE Observed: 05/13/2017 Status: COMPLETED Source: [place] 10:21 AM [facility] REPOSITORY HNO ID: [id number] Author: Sarah KingRn) MITCHELL Cortez Service: Emergency Medicine Author Type: Registered Nurse Type: ED Notes Filed: 05/13/2017 10:22 AM Note Text: Patient has an ID Band on , has an Allergy Band on, is in the bed/cart with Side Rails up x2 and has the Call Alvarez within reach. ED PROV NOTE Observed: 05/13/2017 Status: COMPLETED Source: [place] 10:11 AM [facility] REPOSITORY HNO ID: [id number] Author: Ally Cervantes (Ivy) Momo Service: Emergency Medicine Author Type: Nurse Practitioner Type: ED Provider Notes Filed: 05/13/2017 2:11 PM Note Text: SUBJECTIVE: Mr. 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 Yoo) c/b prolapse (04/18) who presented to the ED with c/o flu-like symptoms. In the emergency department, the patient was found to be hypokalemic 3.1 for which he received 20 mEq IV. CBC was upper limit normal leukocytosis with left shift. The patient was nfluenza A positive. He received Zofran, morphine, Dilaudid, with normal saline bolus for symptom management. The patient had two elevated high sensitivity troponins. Colorectal surgery was consulted with reduction of parastomal hernia. ED staff Dr. Her ordered CT a/p triple contrast (reordered as there was a complication with MAR from first order). Colorectal surgery signed off but recommended outpatient follow-up with Dr. Yoo regarding the recurrent prolapse. Ostomy nurse was also consulted as recommended. The patient was referred to the CDU for symptomatic management, ACS rule out, and continued observation. OBJECTIVE: Alert, oriented ?3, nontoxic appearing NCAT, no facial asymmetry, mucous membranes moist, no dysarthria or dysphagia Neck supple, no nuchal rigidity, no cervical lymphadenopathy, no stridor, no JVD Lungs sounds diminished with faint end expiratory wheezing, frequent wet nonproductive cough, symmetric expansion; desaturation on room air at rest with oxygen supplementation via nasal cannula Abdomen soft but noting a large parasternal hernia with output of green soft stool and gas, no peritoneal signs No CVAT and bladder nontender No diaphoresis or pedal edema Stable ambulatory gait and freely moves all extremities ASSESSMENT: 1) influenza PLAN: Patient seen today in the CDU. Elevated blood pressure noted as there was a delay in receiving his home medications from ED transfer into the CDU. His home medications were provided. He also received a repeat dose of potassium chloride 40 mEq by mouth. ACS rule out was negative. CT abdomen and pelvis findings reviewed at length with patient and his brother who is at the bedside. His large parastomal hernia was without obstruction. Hernia was worsened by coughing, pillow provided for blunting. He was also noted to have oxygen requirement. Therefore, Tamiflu initiated, nebulizers every 4 hours ordered with Tessalon Perles 3 times a day as needed for cough. Will avoid guaifenesin with history of CHF. Also noted on the CT scan incidental indeterminate renal lesions and a 3.1 cm AAA. Opacities on CT scan consistent with the flu. The patient was counseled that he will need to follow up with Dr. Yoo within the week regarding this visit. He was also counseled to follow- up with cardiology regarding his AAA as well as with his PCP regarding his renal lesions. He may follow up with nephrology as needed for this as well. OARRS reviewed. The patient was counseled that his acute pain will be treated with Percocet in the CDU but he should follow up with his colorectal surgeon regarding any further pain medications/refills. He was amenable to this plan. IANDOs monitored for any changes to ostomy output. The patient will stay in the CDU for continued symptomatic management with reassessment tomorrow. He is amenable to this plan also. EKG INTERPRETATION: Time: 1248 05/13/2017 RHYTHM: Normal sinus rhythm at 80 beats per minute AXIS: Normal axis INTERVALS: Normal AK interval QRS COMPLEX: Normal ST SEGMENT: Normal ST-T segments QT INTERVAL: Normal COMPARED WITH PRIOR: unchanged x3 Interpreted by: IVY Pearson Cnp 05/13/17 1411 TROPONIN T Collected: 05/13/2017 Status: F Source: [place] 9:15 AM [facility] RE[facility] TYPE CODE TESTS RESULT OUT OF REFERENCE UNITS RANGE LAB TROPT 0.000-0.029 ng/mL Troponin T <0.010 Performed By: #### BRAYAN #### [facility] [address] [place], [place] [address] PLAN OF CARE Observed: 05/13/2017 Status: COMPLETED Source: [place] 8:37 AM [facility] REPOSITORY HNO ID: [id number] Author: Jovani Valle (Pharmacist) Service: Pharmacy Author Type: Pharmacist Type: Plan of Care Filed: 05/13/2017 8:38 AM Note Text: MEDICATION HISTORY AND MEDICATION RECONCILIATION Patient Name:.Maxx Knott : 1950 Source of history:Patient: Reliability of source: Appears reliable, clearly identified: Medication name, Pharmacy records: outpt fill records and [facility] records (recent admission/discharge within 1 month) Medication Nonadherence Identified: No barriers noted The above information represents the best possible medication history: Yes Reconciliation completed? Yes All BIOFUELS MANAGER medications addressed by LIP Additional comments: N/A Allergies: ALLERGIES Allergen Reactions - Altaseptic Unknown - Crestor [Rosuvastat* Myalgia - Hctz [Amiloride-Hyd* Swelling - Ramipril Swelling - Simvastatin Myalgia - Voltaren [Diclofena* Unknown Current BIOFUELS MANAGER Medications: Prior to Admission medications as of 04/18/17 0905 Medication Sig Last Dose Taking cyclobenzaprine (FLEXERIL) 10 mg tablet Take 1 tablet by mouth daily at bedtime. 05/13/2017 Yes gabapentin (NEURONTIN) 300 mg capsule Take 2 capsules by mouth daily at bedtime for 90 days. 05/13/2017 Yes metoprolol succinate ER (TOPROL XL) 100 mg Tb24 Take 1 tablet by mouth once daily. 05/13/2017 Yes QUEtiapine (SEROQUEL) 200 mg tablet Take 2 tablets by mouth daily at bedtime. 05/13/2017 Yes hydrALAZINE (APRESOLINE) 10 mg tablet Take 1 tablet by mouth three times daily. 05/13/2017 Yes clopidogrel (PLAVIX) 75 mg tablet Take 1 tablet by mouth once daily. 05/13/2017 Yes COMPOUNDED PRESCRIPTION Adhesive Removers: ConvaTec Sensi- Care No Sting 30/box ICD 10: Prolapsed Stoma K94.09 05/13/2017 Yes COMPOUNDED PRESCRIPTION One Piece Ostomy Pouch Item Type: Coloplast Sensura One Piece Non-Sterile with Window 3/-4 /'' ?5/Box ICD 10: Prolapsed Stoma K94.09 05/13/2017 Yes COMPOUNDED PRESCRIPTION Paste: Convatec Stomahesive 1 tube ICD 10: Prolapsed Stoma K 94.09 05/13/2017 Yes COMPOUNDED PRESCRIPTION Powder: Convatec Stomahesive 1 bottle ICD 10: K 94.09 05/13/2017 Yes COMPOUNDED PRESCRIPTION Skin Barrier: Hollihesive 4x4 5/box ICD 10: Prolapsed Stoma K 94.09 05/13/2017 Yes pravastatin (PRAVACHOL) 40 mg tablet Take 40 mg by mouth once daily. 05/13/2017 Yes MULTIVIT WITH IRON,MINERALS (MULTIVITAMIN AND MINERALS ORAL) Take 1 capsule by mouth. 05/13/2017 Yes albuterol HFA (PROVENTIL HFA, VENTOLIN HFA) 90 mcg/actuation inhaler Inhale as instructed. 05/13/2017 Yes fluticasone (FLONASE) 50 mcg/actuation nasal spray Use in the nose. 05/13/2017 Yes nitroglycerin sublingual (NITROSTAT) 0.[address] ONE(1) TABLET UNDER TONGUE NEEDED FOR CHEST PAIN. IF NO PAIN RELIEF CALL 911 05/13/2017 Yes losartan (COZAAR) 100 mg tablet Take 100 mg by mouth once daily. 05/13/2017 Yes aspirin 81 mg chewable tablet Take 81 mg by mouth once daily. 05/13/2017 Yes amLODIPine (NORVASC) 10 mg tablet Take 10 mg by mouth once daily. 05/13/2017 Yes furosemide (LASIX) 20 mg tablet Take 40 mg by mouth once daily as needed. 05/13/2017 Yes Jovani Valle Pharmacist May 13, 2017 8:37 AM ED NOTE Observed: 05/13/2017 Status: COMPLETED Source: [place] 7:57 AM [facility] RE[facility] HNO ID: [id number] Author: Dian KingRn) MITCHELL Dale Service: Emergency Medicine Author Type: Registered Nurse Type: ED Notes Filed: 05/13/2017 7:58 AM Note Text: Report to Sarah, RN in CDU, patient going to bed 5. ED NOTE Observed: 05/13/2017 Status: COMPLETED Source: [place] 7:30 AM [facility] REPOSITORY HNO ID: [id number] Author: Daysi Campa (Cook Helper Vegetable) REILLY Ahn Service: Emergency Medicine Author Type: Registered Resp Therapist Type: ED Notes Filed: 05/13/2017 8:18 AM Note Text: Asked to see patient d/t acute SOB, placed on 3L NC per EMTP, Lungs diminished, clear, appears to be improved after oxygen. History of YUSUF, wears CPAP [id number] at HS and PRN. No noted lung history or home respiratory medications. Noted patient to be admitted to CDU for +flu A PLAN OF CARE Observed: 05/13/2017 Status: COMPLETED Source: [place] 5:29 AM [facility] REPOSITORY HNO ID: [id number] Author: Hue (Res) MD Abdulkadir Service: Colorectal Author Type: Resident Type: Plan of Care Filed: 05/13/2017 5:37 AM Note Text: Colorectal surgery brief note Assessment/Plan: 66 year old man with previous history of diverticulitis c/b perforation s/p with diverting loop colostomy (no resection done) who was seen by Dr. Yoo for prolapsed stoma on 04/18 presenting to the ED with flu like symptoms and prolapsed stoma. Sugar applied and stoma reduced back into normal position, still protrudes when he coughs or sits up. -pt has appt with Dr. Yoo in 2 weeks for discussion about reversing ostomy, he should keep this appointment or try to see if they can move it up if there is continued issues with ostomy prolapse (office #[phone]) -have ostomy nurse change his appliance before discharge -[facility] will sign of for now, please call with any questions or concerns Subjective: Objective: BP 157/94 Pulse (!) 106 Temp 36.7 ?C (98.1 ?F) (Oral) Resp 18 Ht 172.7 cm (5' 8) Wt 93 kg (205 lb) SpO2 98% BMI 31.17 kg/m2 General: NAD, resting in bed, alert, oriented x 3 CV: RRR Pulm: CTAB Abdomen: Colostomy with significant prolapse, pink and patent, productive of solid stool, tender to palpation Hue Panchal MD General Surgery, PGY-1 Pager - [phone] HIGH SENS TROPONIN T Collected: 05/13/2017 Status: F Source: [place] 5:12 AM [facility] REPOSITORY TYPE CODE TESTS RESULT OUT OF REFERENCE UNITS RANGE LAB HSTN <12 ng/L High High Sensitivity BRAYAN 16 Result Comment: When assessing risk for acute coronary syndromes: In patients undergoing blood draw greater than or equal to 2 hours from symptom onset, with history of very low to moderate risk and non-ischemic ECG, an initial hs-Troponin T less than 12 ng/L AND a 1 hour delta hs-Troponin T less than 3 ng/L should be considered very low risk for 30 day MACE. Performed By: #### HSTNT #### [facility] [address] [id number] ED NOTE Observed: 05/13/2017 Status: COMPLETED Source: [place] 5:10 AM [facility] REPOSITORY HNO ID: [id number] Author: Oli KingRn) MITCHELL Abdul Service: Emergency Medicine Author Type: Registered Nurse Type: ED Notes Filed: 05/13/2017 5:29 AM Note Text: GI at bedside to reduce stoma. 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 He presents with a 2-3 day history of myalgias, cough with yellow-greenish sputum, occasional fevers, chest pain that is worsened by cough and deep inspiration, worsening abdominal pain over the stoma site, and shortness of breath largely because of pain when attempting to breath in. 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 Social History Social History Main Topics - Smoking status: Former Smoker Packs/day: 0.50 Years: 35.00 Types: Pipe, Cigarettes Quit date: 11/16/2016 - Smokeless tobacco: Never Used Comment: Quit cigarettes 11-16-16 now smoking 4 pipes as of 04-18-17 - Alcohol use No - Drug use: No - Sexual activity: Not Currently ALLERGIES Allergen Reactions - Altaseptic Unknown - Crestor [Rosuvastat* Myalgia - Hctz [Amiloride-Hyd* Swelling - Ramipril Swelling - Simvastatin Myalgia - Voltaren [Diclofena* Unknown Review of Systems Constitutional: Positive for appetite change, fatigue and fever. Negative for chills. HENT: Positive for congestion and rhinorrhea. Negative for sore throat. Eyes: Negative for visual disturbance. Respiratory: Positive for cough, chest tightness and shortness of breath. Negative for wheezing. Cardiovascular: Positive for chest pain. Negative for palpitations and leg swelling. Gastrointestinal: Positive for abdominal pain (over stoma site). Negative for diarrhea, nausea and vomiting. Genitourinary: Negative for difficulty urinating, dysuria, hematuria and urgency. Musculoskeletal: Positive for myalgias. Negative for arthralgias, back pain and neck pain. Skin: Negative for color change and rash. Neurological: Negative for dizziness, weakness and numbness. Hematological: Negative for adenopathy. Physical Exam BP 157/94 Pulse 106 Temp (Src) 98.1 (Oral) Resp 18 Ht 5' 8 (1.73m) Wt 205 lb (93.0kg) SpO2 98% BMI 31.18 kg/(m2). Physical Exam Constitutional: He is oriented to person, place, and time. He appears well-developed and well-nourished. He appears distressed (in pain). HENT: Head: Normocephalic and atraumatic. Nose: Nose normal. Mouth/Throat: Oropharynx is clear and moist. No oropharyngeal exudate. Eyes: Conjunctivae and EOM are normal. Pupils are equal, round, and reactive to light. No scleral icterus. Neck: Normal range of motion. Neck supple. No JVD present. Cardiovascular: Normal rate, regular rhythm, normal heart sounds and intact distal pulses. Exam reveals no gallop and no friction rub. No murmur heard. Pulmonary/Chest: He is in respiratory distress (mildly tachypnic). He has wheezes. He has no rales. He exhibits tenderness. Abdominal: Soft. Bowel sounds are normal. He exhibits no distension. There is tenderness (stoma site). There is guarding (stoma site). There is no rebound. Tenderness over the stoma site. Stoma appears healthy, pink, producing stool. Musculoskeletal: Normal range of motion. He exhibits no edema. Lymphadenopathy: He has no cervical adenopathy. Neurological: He is alert and oriented to person, place, and time. Skin: Skin is warm and dry. Diagnostic Testing ED Labs Ordered and Reviewed CBC + DIFF - Abnormal; Notable for the following: Result Value Ref Range Abs Neut (ANC) 7.71 (*) 1.45 - 7.50 k/uL Abs Lymph 0.86 (*) 1.00 - 4.00 k/uL Abs [place] 1.08 (*) <0.87 k/uL All other components within normal limits BASIC METABOLIC PNL - Abnormal; Notable for the following: Glucose 122 (*) 74 - 99 mg/dL Potassium 3.1 (*) 3.7 - 5.1 mmol/L All other components within normal limits HIGH SENSITIVITY TROPONIN T - Abnormal; Notable for the following: BRAYAN High Sensitivity 17 (*) <12 ng/L All other components within normal limits HIGH SENSITIVITY TROPONIN T - Abnormal; Notable for the following: BRAYAN High Sensitivity 16 (*) <12 ng/L All other components within normal limits UA DIP, URINE (POC) - Abnormal; Notable for the following: HEMOGLOBIN/BLOOD UA (POCT) Trace-intact (*) Neg PROTEIN UA (POCT) >=300 (*) Neg mg/dL All other components within normal limits Narrative: Meter ID: [id number] UA DIP, URINE (POC) B NATRIURETIC PEPTID ED (POC) ORDER TROPONIN T HIGH SENSITIVITY TROPONIN T FLU A/B B/O RAPID PCR ASSAY FOR FLU/RSV Procedures Medical Decision Making / ED Course ED Course Clinically stable on arrival. In discomfort largely because of SOB from chest and abdominal pain over stoma site. K 3.1, repleted. Chest pain rule out: hsTnT 17. Pain treated symptomatically with IV morphine, also given IV zofran, improved. [facility] consulted - reduced the colostomy. CT abd/pelvis planned. Will plan for CDU admit given hsTnT elevation. Encounter Diagnosis ICD-10-CM 1. Flu-like symptoms R68.89 2. Atypical chest pain R07.89 3. Colostomy prolapse (HCC) K94.09 4. Abdominal pain, unspecified abdominal location R10.9 Plan The Patient was ADMIT to [facility] CDU CDU Plan of Care Current clinical impression and indication for CDU placement: chest pain rule out. CDU Interventions are: chest pain rule out Labs: Repeat Cardiac Markers Imaging: ACS testing, CT abd pelvis Procedures: None Consults: None Clinical Reassessment: Testing and results complete 23 hour goals: Sxs resolved or improved and CDU indications addressed Condition at time of disposition: improved SIGNATURE: MD Lamar Hutson (Res) Abiel Resident 05/13/17 0650 ATTENDING NOTE: I personally evaluated the patient and personally participated in the nelson components. I agree with the resident's findings and plan as documented and have discussed the case and management of the patient's care with the resident. This is a well appearing pt who is appropriate for CDU referral and if doing well tomorrow, out-pt.treatment and follow-up. There is no indication for ICU care Disposition: CDU Condition: Good Aneudy Her MD, FACEP Aneudy Reed () MD Taina 05/14/17 0806 ED NOTE Observed: 05/13/2017 Status: COMPLETED Source: [place] 3:15 AM [facility] REPOSITORY HNO ID: [id number] Author: Dwight Moreno (Medic) Service: Emergency Medicine Author Type: Bed Setter and Scraper Meat Type: ED Notes Filed: 05/13/2017 3:15 AM Note Text: Labs were drawn and sent. CBC AND DIFFERENTIAL Collected: 05/13/2017 Status: F Source: [place] 3:15 AM [facility] REPOSITORY TYPE CODE TESTS RESULT OUT OF REFERENCE UNITS RANGE LAB WBC 3.70-11.00 k/uL WBC 10.02 LAB RBC 4.20-6.00 m/uL RBC 4.95 LAB HGB 13.0-17.0 g/dL Hemoglobin 15.3 LAB HCT 39.0-51.0 % Hematocrit 44.8 LAB MCV 80.0-100.0 fL MCV 90.5 LAB MCH 26.0-34.0 pG MCH 30.9 LAB MCHC 30.5-36.0 g/dL MCHC 34.2 LAB RDWCV 11.5-15.0 % RDW-CV 14.1 LAB PLTCT 150-400 k/uL Platelet Count 281 LAB MPV 9.0-12.7 fL MPV 10.3 LAB ANEUT % Neut% 76.9 LAB AANEUT 1.45-7.50 k/uL Abs Neut High 7.71 LAB ALYMP % Lymph% 8.6 LAB AALYMP 1.00-4.00 k/uL Low Abs Lymph 0.86 LAB AMONO % [place]% 10.8 LAB AAMONO <0.87 k/uL Abs [place] High 1.08 LAB AEOS % Eosin% 3.4 LAB AAEOS <0.46 k/uL Abs Eosin 0.34 LAB ABASO % Baso% 0.3 LAB AABASO <0.11 k/uL Abs Baso 0.03 LAB AUNRBC 0 /100 WBC NRBCs 0.0 LAB ABNRBC <0.01 k/uL Absolute nRBC <0.01 LAB DTYP DTYPE Auto Diff Performed By: #### CBCDIF, BMP, HSTNT, BRAYAN #### [facility] [address] [place] [address] BASIC METABOLIC PANL Collected: 05/13/2017 Status: F Source: [place] 3:15 AM [facility] REPOSITORY TYPE CODE TESTS RESULT OUT OF REFERENCE UNITS RANGE LAB GLU 74-99 mg/dL High Glucose 122 Result Comment: The [place] Diabetes Association (ADA) provides guidance for cutoff values for fasting glucose and random glucose. The ADA defines fasting as no caloric intake for at least 8 hours. Fas ting plasma glucose results between 100 to 125 mg/dL indicate increased risk for diabetes (prediabetes). Fasting plasma glucose results greater than or equal to 126 mg/dL meet the criteria for diagnosis of diabetes. In the absence of unequivocal hyperglycemia, results should be confirmed by repeat testing. In a patient with classic symptoms of hyperglycemia or hyperglycemic crisis, random plasma glucose results greater than or equal to 200 mg/dL meet the criteria for diagnosis of diabetes. Reference: Standards of Medical Care in Diabetes 2016, [place] Diabetes Association. Diabetes Care. 2016.39(Suppl 1). LAB BUN 9-24 mg/dL BUN 14 LAB CRET 0.73-1.22 mg/dL Creatinine 0.89 LAB NA 136-144 mmol/L Sodium 141 LAB K 3.7-5.1 mmol/L Potassium Low 3.1 LAB CL 97-105 mmol/L Chloride 99 LAB CO2 22-30 mmol/L CO2 28 LAB AGAP 9-18 mmol/L Anion Gap 14 LAB CA 8.5-10.2 mg/dL Calcium, Total 9.4 LAB GFRAA eGFR- Amer. >60 LAB GFRNAA . eGFR-All Other Races >60 Result Comment: eGFR (Estimated GFR) Units of measure: mL/min/1.73 meters squared eGFR is derived from the reexpressed MDRD Study equation using the following parameters: serum creatinine, age, gender and race. The creatinine assay has been calibrated to be traceable to IDMS. An eGFR <60 mL/min/1.73m2 for >3 months is consistent with chronic kidney disease. Refer to KDOQI guidelines for clinical interpretation. In patients with unstable renal function, e.g. those with acute kidney injury, the eGFR may not accurately reflect actual GFR. Performed By: #### CBCDIF, BMP, HSTNT, BRAYAN #### [facility] [address] [place], [place] [address] HIGH SENS TROPONIN T Collected: 05/13/2017 Status: F Source: [place] 3:15 AM [facility] REPOSITORY TYPE CODE TESTS RESULT OUT OF REFERENCE UNITS RANGE LAB HSTN <12 ng/L High High Sensitivity BRAYAN 17 Result Comment: When assessing risk for acute coronary syndromes: In patients undergoing blood draw greater than or equal to 2 hours from symptom onset, with history of very low to moderate risk and non-ischemic ECG, an initial hs-Troponin T less than 12 ng/L AND a 1 hour delta hs-Troponin T less than 3 ng/L should be considered very low risk for 30 day MACE. Performed By: #### CBCDIF, BMP, HSTNT, BRAYAN #### [facility] [address] [place], [place] [address] TROPONIN T Collected: 05/13/2017 Status: F Source: [place] 3:15 AM [facility] REPOSITORY TYPE CODE TESTS RESULT OUT OF REFERENCE UNITS RANGE LAB TROPT 0.000-0.029 ng/mL Troponin T <0.010 Performed By: #### CBCDIF, BMP, HSTNT, BRAYAN #### [facility] [address] [place], [place] [address] PROGRESS Observed: 05/13/2017 Status: COMPLETED Source: [place] 2:49 AM [facility] REPOSITORY HNO ID: [id number] Author: Maranda Vargas (Rt) Service: Radiology Author Type: Scraper Meat Type: Progress Notes Filed: 05/13/2017 2:49 AM Note Text: Radiology Service Progress Note PATIENT NAME: Maxx Knott DATE OF SERVICE: May 13, 2017 TIME: 2:49 AM PATIENT IDENTITY VERIFICATION COMPLETED USING TWO (2) METHODS: Patient confirmed name verbally and ID band matches.. PATIENT GENDER DATA: Male PATIENT RELEVANT IMPLANT DATA REVIEWED: Not Applicable RADIOLOGY DEPARTMENT: General X-ray: Exam(s) Completed: Chest X-Ray PERIPHERAL IV DATA: Not applicable SIGNED BY: RT Bonilla May 13, 2017 2:49 AM XR CHEST 2V FRONTAL/LAT Observed: 05/13/2017 Status: F Source: [place] 2:48 AM [facility] REPOSITORY * * *Final Report* * * DATE OF EXAM: May 13 2017 2:48AM EGX [id number] - XR CHEST 2V FRONTAL/LAT / PROCEDURE REASON: Coughing * * * * Physician Interpretation * * * * EXAMINATION: CHEST RADIOGRAPH (2 VIEW FRONTAL and LATERAL) Clinical History: Coughing M: XC2_3 Comparison: 04/15/2017 RESULT: Lines, tubes, and devices: Left-sided pacemaker with atrial and ventricular leads, unchanged. Lungs and pleura: No pleural effusion or pneumothorax. No focal consolidation. The pulmonary vascular pattern is normal. Cardiomediastinal silhouette: Status post median sternotomy from CABG. Multiple coronary stents. The heart size is upper limits of normal. Other: Mid left diaphragmatic hernia, unchanged. Multilevel degenerative changes in the thoracic spine. IMPRESSION: No acute radiographic abnormality. Prep Room Supervisor: MAGI Transcribe Date/Time: May 13 2017 2:50A Dictated by : VERENICE CAST DO This examination was interpreted and the report reviewed and electronically signed by: SANDI GAUTHIER MD on May 13 2017 3:11AM EST [id number] ED NOTE Observed: 05/13/2017 Status: COMPLETED Source: [place] 2:22 AM [facility] REPOSITORY HNO ID: [id number] Author: Saniya (Ct) MIHIR Gibson Service: Emergency Medicine Author Type: Scraper Meat Type: ED Notes Filed: 05/13/2017 2:22 AM Note Text: Took Pt Vs TROPI Collected: 05/12/2017 Status: F Source: [employer] 12:36 PM [facility] REPOSITORY TYPE CODE TESTS RESULT OUT OF REFERENCE UNITS RANGE LAB TROPI(LOINC 0.000-0.040 ng/mL ) Troponin I 0.030 Result Comment: Troponin I reference ranges (01/05/14): 0.00-0.040 ng/mL Negative and non-diagnostic. >0.040 ng/mL Consistent with cardiac damage, increased clinical risk and possibility of myocardial infarction. Serial measurements, a rise & fall in test results, clinical history, appropriate symptoms and/or ECG changes may help assess possibility of PA. *Other non-acute coronary syndrome conditions such as CHF, myocarditis, pulmonary emboli, sepsis and cardiac surgery could result in myocardial damage and increased troponin levels. Performed By: #### TROPI #### [place] [address] XR CHEST 2 VIEWS Observed: 05/12/2017 Status: F Source: [employer] 10:02 AM [facility] REPOSITORY ORIGINAL XR CHEST 2 VIEWS, 05/12/2017 10:04 AM INDICATION: SOB/COUGH/FEVER COMPARISON: 19 November 2016 FINDINGS: There are sternotomy wires, surgical clips and a left pacemaker. There are a few streaky airspace opacities in the left base. The lungs are otherwise clear. The cardiac silhouette is within no rmal size limits. The pulmonary vasculature is unremarkable in appearance. IMPRESSION: Mild atelectasis, otherwise clear. Interpreted By: Lisa Duarte MD Preliminary Report By: Lisa Duarte MD Electronically Signed By: Lisa Duarte MD Dictated Date: 05/12/2017 10:11:53 AM Prelim Date: 05/12/2017 10:11:53 AM Sign Date: 05/12/2017 10:12:59 AM DIMER Collected: 05/12/2017 Status: F Source: [facility] 9:08 AM [facility] REPOSITORY TYPE CODE TESTS RESULT OUT OF RANGE REFERENCE UNITS LAB DIMER(LOINC 0-230 ng/mL D-DU ) D-Dimer <200 Result Comment: Results reported in D- DU ng/ml. Negative for D-dimer. DVT/PE is highly unlikely. Note: False negative results may be seen in patients on anticoagulant therapy. The result of the D-Dimer test should be evaluated in the context of all the clinical and laboratory data available. In those instances where the laboratory result does not agree with the clinical evaluation, additional tests should be performed accordingly. Performed By: #### BMP, ANEU, GFR, PBNP, DIMER, ADIFF, TROPI, CBC #### [place] [address] Observed: 05/12/2017 Status: F Source: [facility] 9:00 AM [facility] REPOSITORY . MICRO - Microbiology PROCEDURE: Blood Culture (bacterial) [*1] SOURCE: Blood BODY SITE: COLLECTED DATE/TIME: 05/12/2017 09:00 EST RECEIVED DATE/TIME: 05/12/2017 12:24 EST START DATE/TIME: 05/12/2017 12:24 EST FREE TEXT SOURCE: FINAL REPORTS Final Report [] Verified Date/Time/Personnel: 05/17/2017 12:59 EST Blood Culture: No Growth at 5 days. PRELIMINARY REPORTS Preliminary Report [] Verified Date/Time/Personnel: 05/12/2017 12:59 EST Culture has been received in lab and is no growth to date. Routine cultures are held for 5 days. Performing Locations *1: This test was performed at: [address], [facility]- , [facility] Performed By: #### CBL #### [address] [address] CBC Collected: 05/12/2017 Status: F Source: [facility] 8:57 AM [facility] REPOSITORY TYPE CODE TESTS RESULT OUT OF REFERENCE UNITS RANGE LAB WBC(LOINC) 4.50-10.80 10 3/mcL High WBC 12.30 LAB RBCCT(LOINC 4.50-6.00 10 6/mcL ) RBC 5.05 LAB HGB(LOINC) 13.0-17.5 G/dL Hgb 15.8 LAB HCT(LOINC) 40.0-52.0 % Hct 46.3 LAB MCV(LOINC) 81.0-100.0 fL MCV 91.6 LAB MCH(LOINC) 27.0-33.0 pg MCH 31.2 LAB MCHC(LOINC) 32.0-36.0 G/dL MCHC 34.1 LAB RDW(LOINC) 11.5-15.5 % RDW 15.4 LAB PLT(LOINC) 150-450 10 3/mcL Platelet 272 LAB MPV(LOINC) 6.4-10.5 fL MPV 8.6 Performed By: #### BMP, ANEU, GFR, PBNP, DIMER, ADIFF, TROPI, CBC #### [place] [address] .AUTO DIFF Collected: 05/12/2017 Status: F Source: [facility] 8:57 AM [facility] REPOSITORY TYPE CODE TESTS RESULT OUT OF REFERENCE UNITS RANGE LAB MARGARITO(LOINC) 50.0-75.0 % High Neutrophil % 83.8 LAB LYM(LOINC) 20.0-40.0 % Low Lymphocyte % 6.4 LAB MON(LOINC) 2.0-13.0 % Monocyte % 7.6 LAB EO(LOINC) 0.0-6.0 % Eosinophil % 1.9 LAB BAS(LOINC) 0.0-2.5 % Basophil % 0.3 LAB ABLYM(LOIN 0.90-4.32 10 3/mcL C) Low Lymphocyte, 0.80 Absolute LAB PAO(LOINC 0.09-1.40 10 3/mcL ) Monocyte, 0.90 Absolute LAB AEOS(LOINC 0.00-0.65 10 3/mcL ) Eosinophil, 0.20 Absolute LAB ABAS(LOINC 0.00-0.27 10 3/mcL ) Basophil, 0.00 Absolute Performed By: #### BMP, ANEU, GFR, PBNP, DIMER, ADIFF, TROPI, CBC #### [place] [id number] .NEUABS Collected: 05/12/2017 Status: F Source: [facility] 8:57 AM [facility] REPOSITORY TYPE CODE TESTS RESULT OUT OF REFERENCE UNITS RANGE LAB ANEU(LOINC) 2.25-8.10 10 3/mcL High Neutrophil, 10.40 Absolute Performed By: #### BMP, ANEU, GFR, PBNP, DIMER, ADIFF, TROPI, CBC #### [place] [address] BMP Collected: 05/12/2017 Status: F Source: [facility] 8:57 AM [facility] REPOSITORY TYPE CODE TESTS RESULT OUT OF REFERENCE UNITS RANGE LAB GLU(LOINC) 82-115 mg/dL Glucose High Level 153 LAB NA(LOINC) 136-145 mEq/L Sodium Level 137 LAB K(LOINC) 3.5-5.0 mEq/L Low Potassium Level 3.4 LAB CL(LOINC) 98-110 mEq/L Chloride 100 LAB CO2(LOINC) 22-32 mEq/L CO2 29 LAB EBAL(LOINC 4.0-15.0 mEq/L ) Electrolyte Balance 8.0 LAB BUN(LOINC) 8.0-22.0 mg/dL BUN 13.0 LAB CRE(LOINC) 0.60-1.40 mg/dL Creatinine Lvl (s) 0.83 LAB BC(LOINC) 10.0-22.0 ratio BUN/Creatinine 15.7 Ratio LAB CA(LOINC) 8.4-10.1 mg/dL Calcium Lvl 9.2 Performed By: #### BMP, ANEU, GFR, PBNP, DIMER, ADIFF, TROPI, CBC #### [place] [address] TROPI Collected: 05/12/2017 Status: F Source: [facility] 8:57 AM [facility] REPOSITORY TYPE CODE TESTS RESULT OUT OF REFERENCE UNITS RANGE LAB TROPI(LOINC 0.000-0.040 ng/mL ) Troponin I 0.019 Result Comment: Troponin I reference ranges (01/05/14): 0.00-0.040 ng/mL Negative and non-diagnostic. >0.040 ng/mL Consistent with cardiac damage, increased clinical risk and possibility of myocardial infarction. Serial measurements, a rise & fall in test results, clinical history, appropriate symptoms and/or ECG changes may help assess possibility of PA. *Other non-acute coronary syndrome conditions such as CHF, myocarditis, pulmonary emboli, sepsis and cardiac surgery could result in myocardial damage and increased troponin levels. Performed By: #### BMP, ANEU, GFR, PBNP, DIMER, ADIFF, TROPI, CBC #### [place] [id number] PBNP Collected: 05/12/2017 Status: F Source: [facility] 8:57 AM [facility] REPOSITORY TYPE CODE TESTS RESULT OUT OF REFERENCE UNITS RANGE LAB PBNP(LOINC) 0-900 pg/mL High N-Terminal 2652 proBNP Result Comment: NT-proBNP results of less than 300 pg/mL effectively rules out acute congestive heart failure with 99% negative predictive value. Performed By: #### BMP, ANEU, GFR, PBNP, DIMER, ADIFF, TROPI, CBC #### [address] [address] .GFR Collected: 05/12/2017 Status: F Source: [facility] 8:57 AM [facility] REPOSITORY TYPE CODE TESTS RESULT OUT OF REFERENCE UNITS RANGE LAB GFRAA(LOINC ml/min/1.73 ) sqm GFR >60 [place] Result Comment: GFR Population mean for , Non- Americans Ages 20-29 = 116 mL/min/1.73 sq.m. Ages 30-39 = 107 mL/min/1.73 sq.m. Ages 40-49 = 99 mL/min/1.73 sq.m. Ages 50-59 = 93 mL/min/1.73 sq.m. Ages 60-69 = 85 mL/min/1.73 sq.m. Ages 70+ = 75 mL/min/1.73 sq.m. Chronic Kidney Disease: Less than 60 mL/min/1.73 square meters End Stage Renal Disease: Less than 15 mL/min/1.73 square meters LAB GFRNO(LOINC) ml/min/1.73sqm GFR Non- >60 Result Comment: GFR Population mean for , Non- Americans Ages 20-29 = 116 mL/min/1.73 sq.m. Ages 30-39 = 107 mL/min/1.73 sq.m. Ages 40-49 = 99 mL/min/1.73 sq.m. Ages 50-59 = 93 mL/min/1.73 sq.m. Ages 60-69 = 85 mL/min/1.73 sq.m. Ages 70+ = 75 mL/min/1.73 sq.m. Chronic Kidney Disease: Less than 60 mL/min/1.73 square meters End Stage Renal Disease: Less than 15 mL/min/1.73 square meters Performed By: #### BMP, ANEU, GFR, PBNP, DIMER, ADIFF, TROPI, CBC #### [place] [address] Observed: 05/12/2017 Status: F Source: [facility] 8:57 AM [facility] REPOSITORY . MICRO - Microbiology PROCEDURE: Blood Culture (bacterial) [*1] SOURCE: Blood BODY SITE: COLLECTED DATE/TIME: 05/12/2017 08:57 EST RECEIVED DATE/TIME: 05/12/2017 12:23 EST START DATE/TIME: 05/12/2017 12:23 EST FREE TEXT SOURCE: FINAL REPORTS Final Report [] Verified Date/Time/Personnel: 05/17/2017 12:59 EST Blood Culture: No Growth at 5 days. PRELIMINARY REPORTS Preliminary Report [] Verified Date/Time/Personnel: 05/12/2017 12:59 EST Culture has been received in lab and is no growth to date. Routine cultures are held for 5 days. Performing Locations *1: This test was performed at: [facility], [address] [place] [address], [address] [place] [address] Performed By: #### CBL #### [place] [address] Observed: 05/12/2017 Status: F Source: [facility] 8:29 AM [facility] REPOSITORY . MICRO - Microbiology PROCEDURE: Rapid Influenza A+B Screen w Cult if Ind [*1] SOURCE: Nasopharyngeal BODY SITE: COLLECTED DATE/TIME: 05/12/2017 08:29 EST RECEIVED DATE/TIME: 05/12/2017 08:33 EST START DATE/TIME: 05/12/2017 08:33 EST FREE TEXT SOURCE: FINAL REPORTS Final Report [] Verified Date/Time/Personnel: 05/12/2017 09:00 EST Influenza Virus Type A Specimen is positive for the presence of influenza A antigen. . Specimen is negative for the presence of influenza B antigen. . A positve result does not rule out co-infections with other pathogens or identify any specific influenza virus subtype. If the current local prevalence of the influenza virus is low, the predictive value of a positive screening test is greatly diminished. Positive screening results therefore should be interpreted along with clinical symptoms. . Detection by immunofluorescence technology. This organism causes a reportable disease. Infection Control has been notified. Results have been reported to the [place] [facility]. Performing Locations *1: This test was performed at: [facility], [address] [place] [address], [facility] , [facility] Performed By: #### RFLU #### [place] [address] ZCBCD Collected: 05/09/2017 Status: F Source: ROBERT 4:45 AM [facility] REPOSITORY TYPE CODE TESTS RESULT OUT OF REFERENCE UNITS RANGE LAB 9119008(LO 4.3-10.5 x10E9/L INC) WBC 7.6 LAB 1298226(LO 4.18-5.87 x10E12/L INC) RBC 4.82 LAB 4618198(LO 13.4-17.5 gm/dL INC) Hemoglobin 14.9 LAB 1266753(LO 37.5-49.2 % INC) Hematocrit 45.1 LAB MCV(LOINC) 80.0-100.0 fL MCV 93.6 LAB MCH(LOINC) 26.5-33.0 pg MCH 30.9 LAB MCHC(LOINC 32.6-36.0 g/dL ) MCHC 33.0 LAB 9677661(LO 144-400 x10E9/L INC) Platelet 364 LAB 523462(USHA 7.2-10.3 fL NC) Mean Plt Vol 8.5 LAB 477650(USHA 11.4-16.0 % NC) RDW 14.7 BMP Collected: 05/09/2017 Status: F Source: ROBERT 4:45 AM [facility] REPOSITORY TYPE CODE TESTS RESULT OUT OF REFERENCE UNITS RANGE LAB 9012881(LO 136-144 mmol/L INC) Low Sodium 135 LAB 6283517(LO 3.4-5.1 mmol/L INC) Potassium 3.6 LAB 0677541(LO 98-107 mmol/L INC) Chloride 100 LAB 8515929(LO 22-32 mmol/L INC) CO2 23 LAB 4667210(LO 70-100 mg/dL INC) Glucose High 137 LAB 0168945(LO 8-26 mg/dL INC) BUN 17 LAB 8757397(LO 0.60-1.30 mg/dL INC) Creatinine 0.81 LAB 8727300(LO 8.1-10.1 mg/dL INC) Calcium 9.8 LAB 343720(USHA 5.0-19.0 mmol/L NC) Anion Gap 12.0 LAB 390001(USHA mOsm/kg NC) Osmolality-Calc 274 LAB 020897(USHA NC) Bun/CretRatio 21.0 TROPONIN Collected: 05/09/2017 Status: F Source: [place] 4:45 AM [facility] REPOSITORY TYPE CODE TESTS RESULT OUT OF REFERENCE UNITS RANGE LAB 1805913(USHA ng/mL NC) Troponin <0.03 Result Comment: <0.04 Normal 0.04 - 0.50 Possible cardiac damage >0.50 Consistent with cardiac damage MG Collected: 05/09/2017 Status: F Source: JONES 4:45 AM [facility] REPOSITORY TYPE CODE TESTS RESULT OUT OF REFERENCE UNITS RANGE LAB 5414147(LO 1.8-2.5 mg/dL INC) Magnesium 2.0 EMERGENCY DEPARTMENT Observed: 05/09/2017 Status: F Source: [place] SUMMARY 1:51 AM [facility] REPOSITORY [facility] Medical Records Department [address] [place] [address] Emergency Department Summary 05/03/17 1527 MR#: [id number] Acct: [id number] Name: MAXX KNOTT Rep #: [id number] : 1950 66 From: Lenin Stephen DO PCP: Care Physician, No Primary Status: DEP ER - ER Visit Summary Date of Service: 05/03/17 Chief Complaint: Chest pain History of Present Illness: The patient is a 66 M who states that 2 hours prior to arrival he was retching with nausea and coughing. Developed a chest pain which he describes as a knot in the center of his chest that moved up to his pacemaker site. He states his chest is extremely tender to palpation and when I push on it that is the pain that he is experiencing. He states that prior to this he had been feeling fine. The nausea began when he tried to eat pizza this morning. 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 He is a smoker. Physical Examination: Afebrile vital signs are stable Gen: Well-nourished well-developed Head: Normocephalic atraumatic Eyes: Perrl EOMI ENT: TMs clear no rhinorrhea moist mucous membranes Neck: Supple no lymphadenopathy no JVD nontender CVS: Regular rate rhythm no murmurs normal S1-S2 Respiratory: No distress clear to auscultation bilaterally chest is tender to palpation anteriorly. Abdomen: Soft nontender nondistended normal bowel sounds no masses Back: Nontender Extremity: Nontender no edema Skin: Normal color no rash Neuro: alert orientated 3 CN II-XII intact normal strength sensation reflexes gait cerebellar Psych: Normal affect normal mood Test Results: EKG sinus with a rate of 82. Basic labs are negative. Delta troponin negative. Chest x-ray chronic changes. Emergency Department Course and Treatment: Patient received a GI cocktail with no change. He received Toradol with some improvement. He also received Zofran. Later this course he received a dose of [place]. Patient will be discharged home to follow-up with his doctors return if worsening to suggest anti-inflammatories for the chest wall pain. Impression: 1. Chest wall pain This note was generated with Atosho dictation software. It may contain incorrect words, spelling, and punctuation that were not noted in review of the chart prior to signing ED Disposition - Plan for ED Patient: Disposition: Home or Assisted Living Chief Complaint: Chest Pain Instructions: ED Chest Pain Costochondritis Prescriptions: Ibuprofen [Motrin] 800 mg PO TID PRN #15 tab PRN Reason: Pain Referrals: Care Physician,No Primary [Primary Care Provider] - Additional Instructions: [facility] Return if worsening. What to do if you have Problems For any increased pain, shortness of breath, bleeding, nausea or vomiting, chest pain, or any unexpected problems, contact your Primary Care Provider. Call [facility] ([phone]) or report to the closest Emergency Room. Call 911 if necessary. 05/09/17 0151 <Electronically signed by Lenin Stephen DO> Date Lenin Stephen DO Cosigner Signature (If Indicated): Date CC: No Primary Care Physician 12 LEAD ELECTROCARDIOGRAM Observed: 05/07/2017 Status: F Source: [place] 3:11 PM [facility] REPOSITORY [facility] Cardiovascular Services [address] [place] [id number] 12 Lead EKG 05/03/17 1120 MR#: [id number] Acct: [id number] Name: MAXX KNOTT Rep #: [id number] : 1950 66 From: Kassandra Lundberg MD Attending Dr: Status: DEP ER Ordering Dr: Lenin Stephen DO Date: 05/03/17 Location: ED Sex: M C Admitted: Test Reason : CP Blood Pressure : / mmHG Vent. Rate : 082 BPM Atrial Rate : 082 BPM P-R Int : 192 ms QRS Dur : 108 ms QT Int : 398 ms P-R-T Axes : 045 034 075 degrees QTc Int : 464 ms Normal sinus rhythm Normal ECG Nonspecific T wave abnormality Confirmed by LAUREEN METCALF, KASSANDRA ([id number]), copy editor LAMAR AHN ([id number]) on 05/07/2017 3:11:11 PM Referred By: FRANCISCO Confirmed By:KASSANDRA LUNDBERG MD 05/07/17 9746 Date Kassandra Lundberg MD CC: No Primary Care Physician Signed LIVER PROFILE Collected: 05/03/2017 Status: F Source: [place] 2:52 PM [facility] REPOSITORY TYPE CODE TESTS RESULT OUT OF RANGE REFERENCE UNITS LAB L501.1500 6.4-8.2 g/dL Normal T PROT 7.2 LAB L501.1800 3.4-5.0 g/dL Normal ALB 3.7 Result Comment: Please note revised Albumin AND Globulin reference range effective 2017. LAB L501.1950 2.2-4.2 g/dL Normal GLOB 3.5 LAB L501.4100 15-37 U/L Normal AST 21 LAB L501.4305 45-117 U/L Normal ALK P 99 LAB L501.4405 12-78 U/L Normal ALT 31 LAB L501.4600 0.20-1.00 mg/dL Normal T BILI 0.30 LAB L501.4700 0.00-0.30 mg/dL Normal D BILI 0.10 Performed By: #### L500.3400 #### [facility] [address] [facility]. [place], [place], [address] LIPASE Collected: 05/03/2017 Status: F Source: [place] 2:52 PM [facility] REPOSITORY Order Comment: 'TROP' Serial specimen #1, #2, #3, or #4: 2 TYPE CODE TESTS RESULT OUT OF REFERENCE UNITS RANGE LAB L501.2450 73-393 U/L Low LIPASE 66 Performed By: #### L501.2450, L501.4010 #### [facility] [address] [facility] [place], [address] TROPONIN-I Collected: 05/03/2017 Status: F Source: [place] 2:52 PM [facility] REPOSITORY Order Comment: 'TROP' Serial specimen #1, #2, #3, or #4: 2 TYPE CODE TESTS RESULT OUT OF RANGE REFERENCE UNITS LAB L501.4010 <0.06 ng/mL Normal < 0.02 TROPONIN-I Result Comment: TROPONIN-I EXPECTED VALUES <0.05 NEGATIVE 0.06 - 0.59 AT RISK OF PA > OR = 0.60 SUGGEST PA Performed By: #### L501.2450, L501.4010 #### [facility] [address] [facility] [place], [place], [address] CBC W/DIFF, AUTOMATED Collected: 05/03/2017 Status: F Source: [place] 11:55 AM [facility] REPOSITORY TYPE CODE TESTS RESULT OUT OF RANGE REFERENCE UNITS LAB L100.1000 4.4-11.0 K/mm3 Normal WBC 8.2 LAB L100.1200 4.6-6.2 M/mm3 Low RBC 4.38 LAB L100.1300 13.0-16.5 g/dl Normal HGB 13.7 LAB L100.1400 40-54 % Normal HCT 41.1 LAB L100.1500 80-94 fL Normal MCV 93.8 LAB L100.1600 27.0-32.0 pg Normal MCH 31.3 LAB L100.1700 32-36 g/gl Normal MCHC 33.3 LAB L100.1810 11.6-14.6 % Normal RDW CV 14.4 LAB L100.1820 35.1-43.9 fl High RDW SD 47.3 LAB L100.1900 150-450 K/mm3 Normal PLT 267 LAB L100.2000 6.2-12.0 fl Normal MPV 10.7 LAB L100.2100 47-70 % High NEUT% 76.2 LAB L100.2200 19-41 % Low LY% 16.4 LAB L100.2300 0-10 % Normal MONO% 5.5 LAB L100.2400 0-5 % Normal EO% 1.5 LAB L100.2500 0-1 % Normal BASO% 0.2 LAB L100.2550 0.0-0.9 % Normal IM GRAN % 0.200 Result Comment: IG% - Immature Granulocytes (promyelocytes, myelocytes and metamyelocytes) > 1% indicates that a LEFT SHIFT is Present. LAB L100.2620 2.0-7.7 X10 3/uL Normal Absolute Neut 6.3 LAB L100.2720 0.83-4.51 X10 3/ul Normal Absolute Lymph 1.35 Performed By: #### L100.0100 #### [facility] [address] [place], [address] BASIC METABOLIC Collected: 05/03/2017 Status: F Source: [place] PROFILE (BMP) 11:55 AM [facility] REPOSITORY Order Comment: 'TROP' Serial specimen #1, #2, #3, or #4: 1 TYPE CODE TESTS RESULT OUT OF RANGE REFERENCE UNITS LAB L501.0100 70-110 mg/dL High GLU 119 Result Comment: Fasting Glucose result from 110 to <126 mg/dL suggests IMPAIRED HOMEOSTASIS per A.D.A. criteria. LAB L501.1000 7-18 mg/dL Normal BUN 17 LAB L501.1100 0.70-1.30 mg/dL Normal CREAT,SERUM 0.95 Result Comment: The validity of the calculated GFR AND GFRAA in patients over 70 years has not been determined. Clinical correlation is essential. LAB L501.1110 >60 mL/min Normal EST GFR 85 Result Comment: Non- GFR Calc LAB L501.1115 >60 mL/min Normal EST GFR - AA 102 Result Comment: GFR Calc LAB L501.1255 ml/min Normal Estimated CRCL 80.04 LAB L501.1300 10-20 RATIO Normal BUN/CRE 18.0 LAB L501.2200 8.5-10 mg/dL Normal .1 CA 9.4 LAB L501.5300 136-14 mmol/L Normal 5 NA 136 LAB L501.5600 3.5-5. mmol/L Normal 1 K 4.2 LAB L501.5900 98-107 mmol/L Normal CL 102 LAB L501.6100 21.0-3 mmol/L Normal 2.0 CO2 26.0 LAB L501.6200 5-15 Normal GAP 8 Performed By: #### L500.2500, L501.4010 #### [facility] Laboratory [facility] [address] [place], [place], [address] TROPONIN-I Collected: 05/03/2017 Status: F Source: [place] 11:55 AM [facility] REPOSITORY Order Comment: 'TROP' Serial specimen #1, #2, #3, or #4: 1 TYPE CODE TESTS RESULT OUT OF RANGE REFERENCE UNITS LAB L501.4010 <0.06 ng/mL Normal < 0.02 TROPONIN-I Result Comment: TROPONIN-I EXPECTED VALUES <0.05 NEGATIVE 0.06 - 0.59 AT RISK OF PA > OR = 0.60 SUGGEST PA Performed By: #### L500.2500, L501.4010 #### [facility] [address] [place], [address] CHEST 1 VIEW Observed: 05/03/2017 Status: F Source: [place] (PORTABLE) 11:46 AM [facility] REPOSITORY [facility] Imaging Services [address] [place] [address] Chest 1 View (Portable) MR#: [id number] Acct: [id number] Name: MAXX KNOTT Rep #: [id number] : 1950 M 66 From: Andrés Rodas DO PCP: Care Physician, No Primary Status: PRE ER Study: Chest 1 View (Portable) Date of Exam: 05/03/17 Exam# [id number] Ordering Dr: Lenin Stephen DO STUDY: X-RAY CHEST REASON FOR EXAM: Male, 66 years old. Chest pain near pacemaker area TECHNIQUE: Single AP portable view of the chest. COMPARISON: 02/23/2017 FINDINGS: Stable left chest wall pacing device. There is hyperinflation of the lungs consistent with chronic obstructive lung disease (COPD). Lungs are clear. There is no demonstrated pleural abnormality. Sternal cerclage wires and vascular clips are present from a prior sternotomy and coronary artery bypass graft procedure (CABG). Normal mediastinum and irene. Normal visualized pulmonary arteries. Normal visualized aortic arch and descending thoracic aorta. There are diffuse degenerative changes of the visualized thoracic spine. There is degenerative osteoarthritis of the bilateral shoulders. There is no demonstrated abnormality of the visualized soft tissue structures of the upper abdomen. RAD/Chest 1 View (Portable) IMPRESSION: COPD without acute findings Electronically Signed: Andrés Rodas DO at 13:08 EST Tel , Service support , CC: No Primary Care Physician; Lenin Stephen DO Prep Room Supervisor: Signed CRP Collected: 05/01/2017 Status: F Source: [place] 5:19 PM [facility] REPOSITORY TYPE CODE TESTS RESULT OUT OF RANGE REFERENCE UNITS LAB 3576218(USHA 0.0-9.9 mg/L NC) High 11.5 C-Reactive Prot DARIA REF LAB Collected: 05/01/2017 Status: F Source: [place] 5:19 PM [facility] REPOSITORY TYPE CODE TESTS RESULT OUT OF REFERENCE UNITS RANGE LAB 689397(LOIN C) DARIA Negative Result Comment: Negative <1:80 Borderline 1:80 Positive >1:[address] [id number] PhD Rodrick Roblero PhD NUC/SPECT STRESS/REST Observed: 05/01/2017 Status: F Source: [place] MPI 2:18 PM [facility] REPOSITORY Patient Name: MAXX KNOTT STUDY: NUC/SPECT STRESS/REST MPI; 05/01/2017 10:00 am INDICATION: CP. COMPARISON: None. ACCESSION NUMBER(S): [id number] ORDERING CLINICIAN: CORDELL MOREL TECHNIQUE: DIVISION OF NUCLEAR MEDICINE PHARMACOLOGIC STRESS MYOCARDIAL PERFUSION SCAN, ONE DAY PROTOCOL The patient received an intravenous dose of 11.9 mCi of Tc- 99m tetrofosmin and resting emission tomographic (SPECT) images of the myocardium were acquired. The patient then received an intravenous infusion of 0.4mg regadenoson (Lexiscan) followed by an additional dose of 32.0 mCi of Tc-99m tetrofosmin. Stress phase SPECT images of the myocardium were then acquired. These included ECG-gated images to assess and quantify ventricular function. FINDINGS: The left ventricle is dilated. There is a large inferior in both stress and rest phases. No significant redistribution is seen. The gated study shows moderate to severe LV dysfunction. Ejection fraction is 31%. IMPRESSION: Abnormal myocardial perfusion scan with a dilated left ventricle and a large inferior myocardial scar. No ischemia is identified. There is moderate to severe LV dysfunction. Dictated by: Electronically Signed by: Inocente Tam Electronically Signed on: 05/01/2017 2:18 PM Observed: 05/01/2017 Status: F Source: [place] Rojas BLD 12:40 PM [facility] REPOSITORY SOURCE: Venipuncture (No growth at 5 days.) Observed: 05/01/2017 Status: F Source: [place] BLD 11:40 AM [facility] REPOSITORY SOURCE: Venipuncture (No growth at 5 days.) TROPONIN Collected: 04/30/2017 Status: F Source: [place] 3:45 AM [facility] REPOSITORY TYPE CODE TESTS RESULT OUT OF REFERENCE UNITS RANGE LAB 2011620(USHA ng/mL NC) Troponin <0.03 Result Comment: <0.04 Normal 0.04 - 0.50 Possible cardiac damage >0.50 Consistent with cardiac damage BMP Collected: 04/29/2017 Status: F Source: [place] 5:06 AM [facility] REPOSITORY TYPE CODE TESTS RESULT OUT OF REFERENCE UNITS RANGE LAB 2295416(LO 136-144 mmol/L INC) Sodium 140 LAB 1046564(LO 3.4-5.1 mmol/L INC) Potassium 3.9 LAB 3562122(LO 98-107 mmol/L INC) Chloride 106 LAB 4707082(LO 22-32 mmol/L INC) CO2 23 LAB 6206291(LO 70-100 mg/dL INC) Glucose High 127 LAB 8646224(LO 8-26 mg/dL INC) BUN 18 LAB 6046211(LO 8.1-10.1 mg/dL INC) Calcium 9.0 LAB 908195(USHA 5.0-19.0 mmol/L NC) Anion Gap 11.0 LAB 406737(USHA mOsm/kg NC) Osmolality-Calc 283 LAB 947450(USHA NC) Bun/CretRatio 18.8 LAB 5621688(LO 0.60-1.30 mg/dL INC) Creatinine 0.96 TROPONIN Collected: 04/29/2017 Status: F Source: [place] 5:06 AM [facility] REPOSITORY TYPE CODE TESTS RESULT OUT OF REFERENCE UNITS RANGE LAB 1148916(USHA ng/mL NC) Troponin <0.03 Result Comment: <0.04 Normal 0.04 - 0.50 Possible cardiac damage >0.50 Consistent with cardiac damage CBC Collected: 04/29/2017 Status: F Source: [place] 5:05 AM [facility] REPOSITORY TYPE CODE TESTS RESULT OUT OF REFERENCE UNITS RANGE LAB 7711375(LO 4.3-10.5 x10E9/L INC) WBC 9.7 LAB 9086075(LO 4.18-5.87 x10E12/L INC) RBC 4.35 LAB 8330936(LO 13.4-17.5 gm/dL INC) Hemoglobin 13.5 LAB 3467102(LO 37.5-49.2 % INC) Hematocrit 40.9 LAB MCV(LOINC) 80.0-100.0 fL MCV 94.2 LAB MCH(LOINC) 26.5-33.0 pg MCH 31.1 LAB MCHC(LOINC 32.6-36.0 g/dL ) MCHC 33.0 LAB 0438898(LO 144-400 x10E9/L INC) Platelet 182 LAB 407210(USHA 7.2-10.3 fL NC) Mean Plt Vol 8.5 LAB 898124(USHA 11.4-16.0 % NC) RDW 15.9 CT/CTA CHEST W/AND/OR Observed: 04/28/2017 Status: F Source: [place] W/O 2:19 PM [facility] REPOSITORY Patient Name: MAXX KNOTT STUDY: CT/CTA CHEST W/AND/OR W/O; 04/28/2017 2:06 pm INDICATION: Chest pain, rule out PE COMPARISON: None. ACCESSION NUMBER(S): [id number] ORDERING CLINICIAN: STEPHANIE GARBER TECHNIQUE: CT of the chest was performed. Sagittal and coronal reconstructions were generated. 75 cc Omnipaque 350 intravenous contrast given for the examination. FINDINGS: CHEST WALL AND LOWER NECK: Pacer port in the left anterior chest wall with surrounding streak artifact that limits assessment of adjacent structures. Associated pacer wires extend into the right atrium and ventricle. The right lobe of the thyroid is asymmetrically enlarged and mildly heterogenous. No significant axillary lymphadenopathy. MEDIASTINUM AND IRENE: 1.5 cm subcarinal node image 149/332. Subcentimeter bilateral hilar nodes. VESSELS: No pulmonary artery filling defect to suggest PE. Scattered atherosclerotic calcifications including the coronary arteries. HEART: Normal in size. No significant pericardial effusion. LUNG/PLEURA/LARGE AIRWAYS: The central airways are patent. No significant pleural effusion. Mild emphysematous changes. 1.1 cm nodule in the medial right apex on image 77/332. Subtle bibasilar dependent densities. UPPER ABDOMEN: Nodular fullness of the left adrenal measuring 2.3 cm. Subcentimeter dense nodule in the upper pole the left kidney. Partially included isodense to slightly hypodense nodule measuring approximately 2.4 cm in the midpole of the left kidney. THORACIC OSSEOUS STRUCTURES: Multifocal osseous presumed degenerative changes noted. IMPRESSION: No evidence of PE. Mild emphysema with 1.1 cm indeterminate nodule in the right lung apex. Follow-up to assess stability recommended. Mild subcarinal lymphadenopathy. Attention at follow-up recommended. Mildly enlarged heterogenous right thyroid lobe, cannot be further characterized by CT. Ultrasound may be helpful in further evaluation as clinically warranted. Incidental indeterminate left adrenal and left renal nodules, as above. Attention at follow-up and/or further evaluation with MRI recommended as clinically warranted. Dictated by: Electronically Signed by: Hawa Hoang Electronically Signed on: 04/28/2017 2:19 PM AUTO DIFF Collected: 04/28/2017 Status: F Source: [place] 12:30 PM [facility] REPOSITORY TYPE CODE TESTS RESULT OUT OF REFERENCE UNITS RANGE LAB NEUT(LOINC 41.0-73.8 % ) High Neutrophil% 77.8 LAB LYMP%(LOIN 17.0-44.0 % C) Low Lymph % 16.1 LAB MONO%(LOIN 5.3-12.5 % C) Low [place] % 5.2 LAB EO%(LOINC) 0.7-6.5 % Low Eo% 0.5 LAB BASO%(LOIN 0.0-2.4 % C) Baso% 0.4 LAB ANEUT(LOIN 1.8-7.5 x10E9/L C) High Neutrophil 8.1 LAB ALYMP(LOIN 1.1-3.5 x10E9/L C) Lymphocyte 1.7 LAB AMONO(LOIN 0.3-1.0 x10E9/L C) Monocyte 0.5 LAB AEO(LOINC) 0.0-0.5 x10E9/L Eosinophil 0.0 LAB ABASO(LOIN 0.0-0.2 x10E9/L C) Basophil 0.0 ZCBCD Collected: 04/28/2017 Status: F Source: [place] 12:30 PM [facility] REPOSITORY TYPE CODE TESTS RESULT OUT OF REFERENCE UNITS RANGE LAB 0338947(LO 4.3-10.5 x10E9/L INC) WBC 10.4 LAB 7627959(LO 4.18-5.87 x10E12/L INC) RBC 4.45 LAB 3821223(LO 13.4-17.5 gm/dL INC) Hemoglobin 13.7 LAB 9741492(LO 37.5-49.2 % INC) Hematocrit 42.1 LAB MCV(LOINC) 80.0-100.0 fL MCV 94.6 LAB MCH(LOINC) 26.5-33.0 pg MCH 30.8 LAB MCHC(LOINC 32.6-36.0 g/dL ) Low MCHC 32.5 LAB 3200021(LO 144-400 x10E9/L INC) Platelet 286 LAB 825198(USHA 7.2-10.3 fL NC) Mean Plt Vol 8.4 LAB 509362(USHA 11.4-16.0 % NC) RDW 15.2 TROPONIN Collected: 04/28/2017 Status: F Source: [place] 12:30 PM [facility] REPOSITORY TYPE CODE TESTS RESULT OUT OF REFERENCE UNITS RANGE LAB 0078247(USHA ng/mL NC) Troponin 0.03 Result Comment: <0.04 Normal 0.04 - 0.50 Possible cardiac damage >0.50 Consistent with cardiac damage BMP Collected: 04/28/2017 Status: F Source: [place] 12:30 PM [facility] REPOSITORY TYPE CODE TESTS RESULT OUT OF REFERENCE UNITS RANGE LAB 1653487(LO 136-144 mmol/L INC) Sodium 137 LAB 5908982(LO 3.4-5.1 mmol/L INC) Potassium 3.7 LAB 8299588(LO 98-107 mmol/L INC) Chloride 102 LAB 2116888(LO 22-32 mmol/L INC) CO2 25 LAB 5782965(LO 70-100 mg/dL INC) Glucose 97 LAB 5697428(LO 8-26 mg/dL INC) BUN 18 LAB 8534800(LO 0.60-1.30 mg/dL INC) Creatinine 0.89 LAB 6526716(LO 8.1-10.1 mg/dL INC) Calcium 9.4 LAB 283464(USHA 5.0-19.0 mmol/L NC) Anion Gap 10.0 LAB 693183(USHA mOsm/kg NC) Osmolality-Calc 276 LAB 261839(USHA NC) Bun/CretRatio 20.2 LDL MEASURED Collected: 04/28/2017 Status: F Source: [place] 12:30 PM [facility] REPOSITORY TYPE CODE TESTS RESULT OUT OF RANGE REFERENCE UNITS LAB 4922948(USHA mg/dL NC) 126 LDL-Measured ZLIPID Collected: 04/28/2017 Status: F Source: [place] 12:30 PM [facility] REPOSITORY TYPE CODE TESTS RESULT OUT OF REFERENCE UNITS RANGE LAB 5378908(LO 0-200 mg/dL INC) Cholesterol 198 LAB 3275052(LO 0-149 mg/dL INC) Triglycerides High 188 LAB 0553082(LO mg/dL INC) HDL Cholesterol 32 TSH Collected: 04/28/2017 Status: F Source: [place] 12:30 PM [facility] REPOSITORY TYPE CODE TESTS RESULT OUT OF RANGE REFERENCE UNITS LAB 5613345(USHA 0.34-5.60 uIU/mL NC) TSH 0.36 ED DOC Observed: 04/27/2017 Status: UNK Source: [facility] 4:25 PM [facility] REPOSITORY This is a preliminary report only, as the practitioner review and authentication has not occurred. ED DOC Observed: 04/27/2017 Status: UNK Source: [facility] 4:25 PM [facility] REPOSITORY PHYSICIAN ASSESSMENT RECORDS : FlexChartData Event Time: 04/27/2017 16:20 Status: Signed [facility] Maxx Knott [[id number]] Mid-Level Addendum 66 / M / 1950 (V2b) Chart created at 04/27/2017 16:17 by Lenin Tinajero Chart closed at 04/27/2017 16:18 Entry in Emergency Department at 04/27/2017 14:17, departure at 04/27/2017 16:25 Patient Name: Maxx Knott Record Number: [id number] Date: 04/27/2017 16:17 Entered Department at: 04/27/2017 14:17 Patient Seen at: 04/27/2017 15:48 [facility] Chief Complaint:large portion of intestine in colostomy bag that started this am. c/o abd pain. Consults: 1615 Dr. Pardo did call back. She did express concern that he is noncompliant and he does not answer his phone when they try to schedule home care. He does need to see his straightening machine operator and personal assistant for clearance to have surgery in May. I would reinforce this with the patient before discharge. Direct patient care supervision and electronic documentation review by Joe Mcknight on 04/27/2017 18:04. [facility] PATIENT NAME: MAXX KNOTT [address] [place] MEDICAL REC #: [id number] [place] [address] EMERGENCY DEPARTMENT CHART EMERGENCY DEPARTMENT PHYSICIAN : Maria M Event Time: 04/27/2017 15:55 Status: Signed [facility] Maxx Knott [[id number]] Mid-Level Chart (V2b) 66 / M / 1950 Chart created at 04/27/2017 15:43 by Lenin Tinajero Chart closed at 04/27/2017 16:12 Entry in Emergency Department at 04/27/2017 14:17, departure at 04/27/2017 16:25 Patient Name: Maxx Knott Record Number: [id number] Date: 04/27/2017 15:43 Entered Department at: 04/27/2017 14:17 Patient Seen at: 04/27/2017 15:48 Historian: [facility] Chief Complaint:large portion of intestine in colostomy bag that started this am. c/o abd pain. Nursing triage/initial assessment reviewed and confirmed and Initial Vital Signs reviewed. Temperature: 98.4 F (36.9 C). Pulse: 80. Respiratory Rate: 18. Blood-pressure: 199/83. Oxygen Saturation: 94%. History of Present Illness: Patient comes to ER today for discomfort around his colostomy with more of his bowel within the bag than normal. Patient has a history of previous surgery secondary to perforated diverticulitis. He had a colostomy placed. He is due to have this reversed in May at [facility]. He is established locally with Dr. Pardo. He has had multiple visits to the ER for prolapsed colostomy. He is supposed to wearing an abdominal binder however he states that when he wears it, it slips down and then it pops the upper edge of his bag away. So he comes to ER today not wearing the binder. He denies any fevers. No [facility] PATIENT NAME: MAXX KNOTT [address] [place] MEDICAL REC #: [id number] [place] [address] EMERGENCY DEPARTMENT CHART EMERGENCY DEPARTMENT PHYSICIAN nausea/vomiting. Review of Systems. Constitutional: negative for Chills or Fever Eyes: negative for Eye Pain Ear/Nose/Throat: negative for Sore Throat Cardio-Vascular: negative for Chest Pain Skin: negative for Rash Respiratory: negative for Hemoptysis GI: positive for Abd. Pain, negative for Diarrhea, Nausea or Vomiting : negative for Hematuria Musculo-Skeletal: negative for Back Pain Neurological: negative for Headache Hem/Endo: negative for Bleeding, Polydipsia or Polyuria Immunology: negative for Joint Pain Past History, Medications, Allergies, Social History and Family History reviewed in nurses note. Medications: Reviewed RN Note. Allergies: Reviewed RN Note Altace (Ramipril)(Get Sick), CRESTOR (Get Sick), Ramipril(Get Sick), Simvastatin(Nausea and Vomiting), ATORVASTATIN (Get Sick), MOXIFLOXACIN (Difficulty Breathing), VOLTAREN (Get Sick), HYDROCHLOROTHIAZIDE (Get Sick) Social History: Reviewed RN Note. Family History: Reviewed RN Note Physical Examination: General: Alert and Well Developed HEENT: Normal ENT inspection. Oropharynx / Throat: Normal Pharynx. Neck: No Lymphadenopathy Respiratory: No Resp Distress Cardio-Vascular: RRR Abdomen: stoma with a moderate amount of bowel within the ostomy bag. There does seem to be good peristalsis however. There is brown stool within the bag itself. He has normal bowel sounds. He had some discomfort with palpation of the mucosal tissue. I was able to gently reduce the tissue however it did spontaneously come back out. There is no surrounding redness or cellulitis of the abdomen. Back: No CVA tenderness Extremity: Normal Equal pulses Neurological: Alert, Oriented X3 Skin: No rash, No Petechiae, Warm and Dry Psychological: Mood/Affect Normal [facility] PATIENT NAME: MAXX KNOTT [address] [place] MEDICAL REC #: [id number] [place] [address] EMERGENCY DEPARTMENT CHART EMERGENCY DEPARTMENT PHYSICIAN Medical Decision Making Generally well-appearing and comfortable-appearing gentleman sitting on the exam table in no distress. During the examination when he was distracted he did not have discomfort with palpation of the mucosal tissue. However other times he would somewhat wince and jump. After reduction the tissue did spontaneously come back to a prolapsed nature. I am going to touch base with Dr. Pardo. I suspect this is his baseline but it would be nice to have Dr. Pardo lay eyes on this. I did discuss with the patient that when his abdominal minor does lie down he needs to readjusted to keep it appropriately positioned. Patient does have a ED care plan. here in the ER we are going to put a large six-inch Hilton wrap around the prolapsed colostomy. He will also need to wear his abdominal binder. He understands he will need to reposition this when it drops out of the appropriate position. Patient otherwise clinically looks well. I do not suspect obstruction or intra-abdominal infection. patient has been seen and evaluated Dr. Mcknight. Clinical Impression: 1. chronic prolapsed colostomy Disposition: Discharged *Home. Condition: Good Direct patient care supervision and electronic documentation review by Joe Mcknight on 04/27/2017 18:04. : FlexChartData Event Time: 04/27/2017 16:55 Status: Signed [facility] Maxx Knott [[id number]] Attending Physician [facility] PATIENT NAME: MAXX KNOTT [address] [place] MEDICAL REC #: [id number] [place] [address] EMERGENCY DEPARTMENT CHART EMERGENCY DEPARTMENT PHYSICIAN 66 / M / 1950 Addendum (V2b) Chart created at 04/27/2017 16:17 by Joe Mcknight Chart closed at 04/27/2017 16:20 Entry in Emergency Department at 04/27/2017 14:17, departure at 04/27/2017 16:25 Patient Name: Maxx Knott Record Number: [id number] Date: 04/27/2017 16:17 Entered Department at: 04/27/2017 14:17 Patient Seen at: 04/27/2017 15:48 [facility] Chief Complaint:large portion of intestine in colostomy bag that started this am. c/o abd pain. Note: S I seen the patient and discussed this with him. 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 He set up for surgery in May. He does not like to wear his brace from our surgeon. O large parastomal hernia. It does reduce then recurs. Ag is otherwise benign lungs are clear orals and is normal all 4 strum is moving well Discussed with Dr. Urena via TPA and the patient is to be discharged to follow-up. Well consider an Hilton wrap 6 inch around upper and lower portions to try and keep the large binder from pulling it A Parastomal hernia P: DC and recheck. 6 hilton then the binder to see if it will hold the binder from pulling the stoma bag down. Clinical Impression: 1. A 2. A Disposition: Discharged *Home at 27 Apr 2017, 16:20. [facility] PATIENT NAME: MAXX KNOTT [address] [place] MEDICAL REC #: [id number] [place] [address] EMERGENCY DEPARTMENT CHART EMERGENCY DEPARTMENT PHYSICIAN Condition: Good Agree with history/exam documented on primary chart and Patient Interviewed by me. MSE completed. I was the primary ED attending.. I confirm that I have evaluated the patient, reviewed the mid-level providers documentation, and discussed the evaluation, plan of care and disposition of the patient with the mid-level provider.. : Discharge Report Event Time: 04/27/2017 16:17 ===DISCHARGE REPORT=== : FlexChartData Event Time: 04/27/2017 16:20 : FlexChartData Event Time: 04/27/2017 15:55 : FlexChartData Event Time: 04/27/2017 16:55 : Discharge Report Event Time: 04/27/2017 16:17 Status: Draft Reasons to Return to the ER: You must return to the ER for any new, worsening or changing symptoms, or if you feel more ill or sick in any way. This is the most important thing to remember. Follow-up: The care you received in the ER was given on an emergency basis only, and it is often not possible to completely treat or diagnose a problem in a single ER visit. You must see your follow-up doctor for a recheck within a week unless you receive instructions with a different timeframe for follow-up. Please follow all your discharge instructions. [facility] PATIENT NAME: MAXX KNOTT [address] [place] MEDICAL REC #: [id number] [place] [address] EMERGENCY DEPARTMENT CHART EMERGENCY DEPARTMENT PHYSICIAN Medications: Unless the ER doctor tells you differently, you should take all your regular medications and any new medications prescribed today. Because it is not possible for the ER doctor to review all of your medication side effects or interactions, you must review possible side effects and interactions with your pharmacist when you get your prescriptions filled. EKG and Radiology Results: A straightening machine operator or radiologist will review any EKG or radiology results provided by the ER doctor. We will contact you if the results in the final EKG or radiology reports require a change in treatment. Culture Results: Cultures may have been ordered during your ER visit. We will contact you if the culture results require a change in treatment. Referrals: Most referrals to specialists come from the on-call list You should make your regular doctor aware of any referrals before you schedule the appointment so that they are aware and can make suggestions DIAGNOSIS: chronic prolapsed colostomy INSTRUCTIONS: reposition the abdominal binder when it slides down into an inappropriate position. you may use the Hilton wrap for additional stability of the upper aspect. make sure you follow up with your heart and lung specialist for medical clearance so you can have your surgery in May at the [facility] REFERRAL Milana Pardo MD (General Surgery / Trauma), Phone: [facility] PATIENT NAME: MAXX KNOTT [address] [place] MEDICAL REC #: [id number] [place] [address] EMERGENCY DEPARTMENT CHART EMERGENCY DEPARTMENT PHYSICIAN , fax: Please call the above number to schedule a follow-up appointment. [facility] (Medicine/Mental Health/Podiatry/Ophthalmology) , Address: [address] [place] [id number], , fax: Please call the above number to schedule a follow-up appointment. MEDICATIONS We have given you these prescriptions that you must fill and start taking: None My signature below indicates that I have received and understand the oral instructions regarding my medical problem. I also acknowledge receipt of this written instruction sheet including a list of major tests and procedures ordered during my visit. I will arrange for follow-up care as indicated by these instructions and referrals. This signed original will be kept in my medical record. Your signature below indicates consent for Case Management to [facility] in an effort to meet your ongoing healthcare needs. This will allow forcontinuity of care once you leave the Emergency Department. This exchange of informationwill include, but not be limited to, disclosure of your patient information and possible release of records. [employer] Patient: MAXX KNOTT Sex: M : 1950 Age: 66 yr Account No: [id number] Registration Date: 14:17 04/27/2017 [facility] PATIENT NAME: MAXX KNOTT [address] [place] MEDICAL REC #: [id number] [place] [address] EMERGENCY DEPARTMENT CHART EMERGENCY DEPARTMENT PHYSICIAN Address: [address] [place] [address] [address] Address: [place] [address] REGISTRATION ED Number: [id number] Marital Status: D Financial Class: FEDP TRIAGE Priority: 2 - Emergent Complaint: Abdominal Pain Complaint: Medical Equipment Malfunction Stated Complaint: large portion of intestine in colostomy bag that started this am. c/o abd pain. Arrival Date: 04/27/2017 14:17 Triage Date: 04/27/2017 14:25 Mode of Arrival: *Privately Owned Vehicle Transfer From: * Home WC: N Language: [place] Citizen Transport: Ambulatory/Walk In BED C34 In: 04/27/2017 14:44:49 04/27/2017 14:44:49 JJT C34 (Removed From) Out: 04/27/2017 16:25:55 04/27/2017 16:25:55 GDG PROVIDERS TRACEY BARNES Provider Contact: 04/27/2017 15:05:54 GDG End: CORINNA Tinajero Provider Contact: 04/27/2017 15:28:11 [facility] End: [facility] PATIENT NAME: NIKOSMAXX B [address] [place] MEDICAL REC #: [id number] [place] [address] EMERGENCY DEPARTMENT CHART EMERGENCY DEPARTMENT PHYSICIAN MD Joe Mcknight Provider Contact: 04/27/2017 15:46:57 BAM End: TRIAGE HISTORY ALLERGIES Allergic To: CRESTOR - Get Sick 04/27/2017 14:27 LDP Allergic To: Ramipril - Get Sick 04/27/2017 14:27 LDP Allergic To: Simvastatin - Nausea and Vomiting 04/27/2017 14:27 LDP Allergic To: ATORVASTATIN - Get Sick 04/27/2017 14:27 LDP Allergic To: MOXIFLOXACIN - Difficulty Breathing 04/27/2017 14:27 LDP Allergic To: VOLTAREN - Get Sick 04/27/2017 14:27 LDP Allergic To: HYDROCHLOROTHIAZIDE - Get Sick 04/27/2017 14:27 LDP CURRENT MEDS Name: albuterol PRN 04/27/2017 16:10 GDG Name: amlodopine 10mg QD 04/27/2017 16:10 GDG Name: aspirin 81mg QD 04/27/2017 16:10 GDG Name: b complex QD 04/27/2017 16:10 GDG Name: flexeril 30mg HS 04/27/2017 16:10 GDG Name: flonase PRN 04/27/2017 16:10 GDG Name: lasix 40mg PRN 04/27/2017 16:10 GDG Name: [id number] QD 04/27/2017 16:10 GDG [facility] PATIENT NAME: MAXX KNOTT [address] [place] MEDICAL REC #: [id number] [place] [address] EMERGENCY DEPARTMENT CHART EMERGENCY DEPARTMENT PHYSICIAN Name: ibuprofen 600mg PRN 04/27/2017 16:10 GDG Name: losartan 100mg QD 04/27/2017 16:10 GDG Name: metoprolol 100mg QD 04/27/2017 16:10 GDG Name: multi vitamin QD 04/27/2017 16:10 GDG Name: pravastatin 40mg HS 04/27/2017 16:10 GDG Name: seroquel 400mg HS 04/27/2017 16:10 GDG Name: spiriva 18mcg PRN 04/27/2017 16:10 GDG ILLNESS Illness: CHF 04/27/2017 14:27 LDP Illness: COPD 04/27/2017 14:27 LDP Illness: Angina/CAD 04/27/2017 14:27 LDP Illness: Hypertension 04/27/2017 14:27 LDP Illness: Sleep Apnea 04/27/2017 14:27 LDP Illness: High Cholestrol 04/27/2017 14:27 LDP Illness: Diverticulitis 04/27/2017 14:27 LDP PAST SURGERY HIST Surgery: Cardiac Bypass 04/27/2017 14:27 LDP Surgery: Appendectomy 04/27/2017 14:27 LDP Surgery: COLOSTOMY 04/27/2017 14:27 LDP Surgery: triple heart bypass 04/27/2017 14:27 LDP PAST SOCIAL HIST Social History: Communicates without difficulty 04/27/2017 14:27 LDP Social History: Lives with family or significant other 04/27/2017 14:27 LDP Social History: Alcohol - None 04/27/2017 14:27 LDP [facility] PATIENT NAME: MAXX KNOTT [address] [place] MEDICAL REC #: [id number] [place] [address] EMERGENCY DEPARTMENT CHART EMERGENCY DEPARTMENT PHYSICIAN Social History: Recreational Drugs - None 04/27/2017 14:27 LDP Social History: Smoker-1/2-3/4 PPD 04/27/2017 14:27 LDP Social History: Denies Domestic Violence 04/27/2017 14:27 LDP Social History: Denies thoughts of self harm. 04/27/2017 14:27 LDP Social History: Have you traveled in the past month? Where no 04/27/2017 14:27 LDP NURSING ASSESSMENT ASSESSMENT NOTES 04/27/2017 15:13 Pt presents to the ED with ABD pain that started this AM. Pt has a RLQ colostomy that has increased in size. Colostomy is pink and moist. Pt has stool in his colostomy. Pt states he has been nauseated, denies emesis. Pt complains of burning with urination. ABD soft, round, bowel sounds active. Pt resting in bed call light within reach. No signs of distress, will continue to monitor. 04/27/2017 15:14 GDG 04/27/2017 16:13 6inch HILTON wrap wrapped around ABD. Pt tolerated well. 04/27/2017 16:13 GDG 04/27/2017 16:23 Went to go over discharge paperwork and pt had left the unit. 04/27/2017 16:23 GDG TREATMENT 04/27/2017 15:15 Staff/ Patient Interaction - Call light placed within reach. 04/27/2017 15:15 GDG 04/27/2017 15:15 Staff/ Patient Interaction - Introduced self and assessed patients needs. 04/27/2017 [facility] PATIENT NAME: MAXX KNOTT [address] [place] MEDICAL REC #: [id number] [place] [address] EMERGENCY DEPARTMENT CHART EMERGENCY DEPARTMENT PHYSICIAN 15:15 GDG 04/27/2017 15:15 Primary DOC Guide - A. 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 Fall Risk Assessment (Age andlt;65) 04/27/2017 15:15 GDG History of Falling in last 3 months? No (0) Confusion or Disorientation? No (0) Intoxicated or Sedated? No (0) Impaired Gait? Yes (1) Mobility Assist Device Used? Yes (1) Altered Elimination? No (0) Fall Risk Score 1-2 Points = Low Risk. 3-4 Points = Moderate Risk. 5 or more points = High Risk. 2 Fall Score Greater andgt;= 3? No 04/27/2017 15:15 Primary DOC Guide - D. Psychosocial Assessment 04/27/2017 15:15 GDG Over the Last 2 weeks, how often have you had little interest or pleasure in doing things (0) Not at All Is Psychosocial Assessment Score 3 or more? If score is 3 or more please consult ED Navigator! No Total Psychosocial Assessment Score 0 Over the last 2 weeks, how often have you been feeling down, depressed or hopeless (0) Not at All 04/27/2017 15:45 Physician Call - Paged DR. PARDO at [phone] 04/27/2017 15:47 [facility] 04/27/2017 16:09 Physician Call - Repaged Dr. DAVIS at 1601 04/27/2017 16:10 [facility] 04/27/2017 16:12 Physician Call - Dr. PARDO [facility] PATIENT NAME: MAXX KNOTT [address] MEDICAL REC #: [id number] [place] [address] EMERGENCY DEPARTMENT CHART EMERGENCY DEPARTMENT PHYSICIAN called at 1612 04/27/2017 16:13 [facility] MEDICATIONS IV I AND O VITALS VS-ROUTINE Time: 04/27/2017 14:25 B/P: 199/83 - Left Upper Arm - Sitting - Machine Pulse: 80 - Monitor Resp: 18 Sa02: 94 Room Air Temp: 98.40 F - Oral 04/27/2017 14:27 LDP VS-Pain Time: 04/27/2017 14:25 Pain Level: 8 04/27/2017 14:27 LDP VS-GCS Time: 04/27/2017 14:25 Visual: 4 Verbal: 5 Motor: 6 GCS Total: 15 04/27/2017 14:27 LDP VS-HT/WT Time: 04/27/2017 14:25 Ht: 172.7 cm Stated Weight: 91.6 kg Stated 04/27/2017 14:27 LDP VS-Visual Time: 04/27/2017 14:25 04/27/2017 14:27 LDP VS-FHT Time: 04/27/2017 14:25 04/27/2017 14:27 LDP VS-Notes Time: 04/27/2017 14:25 map 119 04/27/2017 14:27 LDP VS-ROUTINE Time: 04/27/2017 15:41 B/P: 185/84 - Right Upper Arm - Lying - Machine Pulse: 77 - Monitor Resp: 18 Sa02: 95 Room Air 04/27/2017 15:41 GDG VS-Pain Time: 04/27/2017 15:41 Pain Level: 8 04/27/2017 15:41 GDG VS-GCS Time: 04/27/2017 15:41 Visual: 4 Verbal: 5 Motor: 6 GCS Total: 15 04/27/2017 15:41 GDG VS-HT/WT Time: 04/27/2017 15:41 04/27/2017 15:41 GDG VS-Visual Time: 04/27/2017 15:41 04/27/2017 15:41 GDG VS-FHT Time: 04/27/2017 15:41 04/27/2017 15:41 GDG VS-Notes Time: 04/27/2017 15:41 MAP 121 04/27/2017 15:41 GDG [facility] PATIENT NAME: MAXX KNOTT [address] [place] MEDICAL REC #: [id number] [place] [address] EMERGENCY DEPARTMENT CHART EMERGENCY DEPARTMENT PHYSICIAN ORDERS Discharge patient 04/27/2017 16:19 N/A Ordered: 04/27/2017 16:16 By . Other Reviewed: 04/27/2017 16:18 By . Other DISCHARGE Diagnosis: chronic prolapsed colostomy 04/27/2017 16:17 Disposition: Time: 04/27/2017 16:16 Discharge Time: 04/27/2017 16:25 Type: Discharge Condition: Stable for admission/discharge/transfer after emergency evaluation/treatment Category: *NOT APPLICABLE Referral: 04/27/2017 16:17 Admit Physician: . Other PRESCRIPTIONS CHARGES SIGNATURE Joe Mcknight MD [facility] Lenin Tinajero PA-C [facility] Aneudy Stacia [employer] 3 JJT STACEY LIVINGSTON RN LDP EDMAR FLORES [facility] TRACEY BARNES GDG [facility] PATIENT NAME: MAXX KNOTT [address] MEDICAL REC #: [id number] [place] [address] EMERGENCY DEPARTMENT CHART EMERGENCY DEPARTMENT PHYSICIAN PROGRESS Observed: 04/20/2017 Status: COMPLETED Source: [place] 4:43 PM [facility] [place] REPOSITORY HNO ID: [id number] Author: Nichole Cervantes (Rn) MITCHELL Torrez Service: (none) Author Type: Registered Nurse Type: Progress Notes Filed: 04/20/2017 4:53 PM Note Text: The [address] [address] OSTOMY SUPPLY ORDER FORM Patient: Maxx Knott Patient Address: [address] [place], [place] [id number] Gender: male Date of : 1950 Type of Stoma: End Descending Colostomy Diagnosis: Diverticulitis K57.92 Item and Description Qty 30 Day Use Adhesive Removers: ConvaTec Sensi-Care No Sting #[id number] Misc Accessory: Mefix Tape 2 # [id number] Moldable Ring: [place] Adapt Barrier Ring # [id number] Pouch: Dara: #[id number], drainable pouch Powder: Convatec Stomahesive # 23678 Wafer: Lyons: #[id number] 30/Box 1 Roll 10/Box 10/Box 1 Bottle 5/Box 1 Box As Needed 1 Box 1 Box As Needed 2 Boxes Refills: 11 Attending Physician: Dr. Yoo For immediate authorization, please contact the physician?s office. [facility] Nurse: EMIL Sharpe Note: n/a SIGNATURE: Nichole Torrez RN PATIENT NAME: Maxx Knott DATE: April 20, 2017 TIME: 4:43 PM CONTACT #: [phone] CNNURSE Observed: 04/20/2017 Status: COMPLETED Source: [place] 12:00 AM [facility] REPOSITORY Nurse Visit (DONNELL) MAID CLEANING COOKINGMAXX PEREZ ([id number]) 1950 M Date Time Provider Department 04/20/17 NICHOLE TORREZ (MITCHELL) DONNELL During your visit today, we recorded the following information about you: Nichole Torrez RN, RN 04/20/2017 4:53 [place] [address] OSTOMY SUPPLY ORDER FORM Patient: Maxx Knott Patient Address: [address] [place], [place] [id number] Gender: male Date of : 1950 Type of Stoma: End Descending Colostomy Diagnosis: Diverticulitis K57.92 Item and Description Qty 30 Day Use Adhesive Removers: ConvaTec Sensi-Care No Sting #[id number] Misc Accessory: Mefix Tape 2ANDquot; # [id number] Moldable Ring: [place] Adapt Barrier Ring # [id number] Pouch: [place]: #[id number], drainable pouch Powder: Convatec Stomahesive # 36723 Wafer: Dara: #[id number] 30/Box 1 Roll 10/Box 10/Box 1 Bottle 5/Box 1 Box As Needed 1 Box 1 Box As Needed 2 Boxes Refills: 11 Attending Physician: Dr. Yoo For immediate authorization, please contact the physician?s office. [facility] Nurse: EMIL Sharpe Note: n/a SIGNATURE: Nichole Torrez RN PATIENT NAME: Maxx Knott DATE: April 20, 2017 TIME: 4:43 PM CONTACT #: [phone] Allergies As of Date: 04/20/2017 Noted Allergy Reaction ALTASEPTIC 12/17/2016 16 - Unknown CRESTOR (ROSUVASTATIN CALCIUM) 12/17/2016 17 - Myalgia HCTZ (AMILORIDE-HYDROCHLOROTHIAZI*12/17/2016 7 - Swelling RAMIPRIL 12/17/2016 7 - Swelling SIMVASTATIN 12/17/2016 17 - Myalgia VOLTAREN (DICLOFENAC SODIUM) 12/17/2016 16 - Unknown Date Reviewed: 04/18/2017 Reviewed by: Ryan Toth) MITCHELL Mcelroy - Fully Assessed Primary Visit Diagnosis:Diverticulitis [K57.92] Prescriptions as of 04/20/2017 Sig: CYCLOBENZAPRINE 10 MG TABLET Take 1 tablet by mouth daily * GABAPENTIN 300 MG CAPSULE Take 2 capsules by mouth dominik* METOPROLOL SUCCINATE ER 100 M* Take 1 tablet by mouth once d* QUETIAPINE 200 MG TABLET Take 2 tablets by mouth daily* HYDRALAZINE 10 MG TABLET Take 1 tablet by mouth three * OXYCODONE-ACETAMINOPHEN 5 MG-* Take 1-2 tablets by mouth antwan* CLOPIDOGREL 75 MG TABLET Take 1 tablet by mouth once d* COMPOUNDED PRESCRIPTION Adhesive Removers: ConvaTec S* COMPOUNDED PRESCRIPTION One Piece Ostomy Pouch Item T* COMPOUNDED PRESCRIPTION Paste: Convatec Stomahesive * COMPOUNDED PRESCRIPTION Powder: Convatec Stomahesive * COMPOUNDED PRESCRIPTION Skin Barrier: Hollihesive 4x4* PRAVASTATIN 40 MG TABLET Take 40 mg by mouth once dominik* MULTIVITAMIN AND MINERALS ORAL Take 1 capsule by mouth. ALBUTEROL SULFATE HFA 90 MCG/* Inhale as instructed. FLUTICASONE 50 MCG/ACTUATION * Use in the nose. 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 Chest pain [R07.9] INVALID FOR* Priority: A More... Hypertensive crisis [I16.9] INVALID FOR* Priority: B More... Healthcare maintenance [Z00.00] INVALID FOR* Priority: M More... Malnutrition of mild degree ([facility]) [E44.1] INVALID FOR* Priority: L More... CHF (congestive heart failure) ([facility]) [I50.9] INVALID FOR* Encounter Status:Closed by NICHOLE TORREZ on 04/20/17 PROGRESS Observed: 04/19/2017 Status: COMPLETED Source: [place] 7:58 AM [facility] REPOSITORY [facility] ID: [id number] Author: Bijan Sinha) MD Haroon Service: (none) Author Type: Physician Type: Progress Notes Filed: 04/19/2017 10:58 AM Note Text: Transitional Care Management Progress Note ? The patients TCM visit was performed within the 7 days of discharge. ? Patient's Date of discharge: 04/17/2017 Date of initial coordinator contact after discharge: no call, patient is present for hospital follow up appointment Discharge diagnosis: colostomy prolapse Medication review completed No, to be done during office visit ? ? Katharina Rojo MA [facility] PROGRESS NOTE Date of Service: April 19, 2017 PCP: Bijan Perez MD Patient: Maxx Knott Preceptor: Chief complaint: Hospital discharge follow up History of Present Illness: Maxx Knott is a 66 year old gentleman with PMHx: - CAD s/p CABG x3 (FNVG-CJZ-anxtgh, XSV-GWC-notecv, DLP-JT1-xoltmjub), Last PCI 01/2016 ( [facility] ): GREY to proximal LAD. - systolic congestive heart failure, ischemic (EF 50%). - Diverticulitis c/b perforation (July 2016) s/p Chad with loop colostomy. - Chronic pain at the stoma site, on oxycodone. - Chronic back pain on Gabapentin 600 mg at bedtime. Patient presented for after hospital follow up visit. Main complain is Stoma prolapse/ Pain. Otherwise denies any other ongoing issues. Per hospital discharge summary: 66 year old male with a history of CAD s/p CABG x3 (OXXQ-OMP-uipumh, LWB-HSH-uvefeg, IVQ-TR7-zindjssx) (2005 at [place]), systolic congestive heart failure, ischemic (EF 50%), Diverticulitis c/b perforation (July 2016) s/p Chad with loop colostomy (with frequent ED visits for prolapsed stoma) who presents with a prolapsed stoma. Colorectal surgery reviewed his case and ultimately decided that he needs to follow up on an outpatient basis for further evaluation. For his chest pain he had cardiac markers followed up that were negative. Cardiology was consulted for pre-op clearance and no further intervention was advised. He was discharged to follow with cards and colorectal surgery on an outpatient basis. Reviewing his chart and care everywhere revealed multiple hospital/ ED visits for Stoma-pain, prolapse, and Opioids prescriptions from different places. Patient will be seen by [facility] and Cardiology today to finalize the plan about the time of surgery ( which will likely be delayed for few months given recent GREY in proximal LAD and the DAPT) Review of Systems GENERAL: No weight loss, malaise or fever. NECK: Negative for lumps, goiter, pain and significant neck swelling. RESPIRATORY: Negative for cough, wheezing or shortness of breath. CARDIOVASCULAR: Positive for intermittent chest pain and SOB. GI: Negative for dysphagia, nausea, vomiting, abdominal discomfort, blood in stools or black stools or change in bowel habits. Urinary: Dysuria, hematuria, Stomal Pain is present MUSCULOSKELETAL: Back pain ENDOCRINE: Negative for cold or heat intolerance, polyuria, polydipsia and goiter. NEURO: No headaches, syncope, weakness, numbness, seizures or tremors. All other reviewed and negative other than HPI. Current Medications Current Outpatient Prescriptions on File Prior to Visit: oxyCODONE-acetaminophen (PERCOCET) 5-325 mg tablet Take 1- 2 tablets by mouth every 4 hours as needed for up to 3 days. clopidogrel (PLAVIX) 75 mg tablet Take 1 tablet by mouth once daily. COMPOUNDED PRESCRIPTION One Piece Ostomy Pouch Item Type: Coloplast Sensura One Piece Non-Sterile with Window 3-4 1/2'' ?5/BoxICD 10: Prolapsed Stoma K94.09 COMPOUNDED PRESCRIPTION Paste: Convatec Stomahesive 1 tubeICD 10: Prolapsed Stoma K 94.09 pravastatin (PRAVACHOL) 40 mg tablet Take 40 mg by mouth once daily. MULTIVIT WITH IRON,MINERALS (MULTIVITAMIN AND MINERALS ORAL) Take 1 capsule by mouth. albuterol HFA (PROVENTIL HFA, VENTOLIN HFA) 90 mcg/actuation inhaler Inhale as instructed. fluticasone (FLONASE) 50 mcg/actuation nasal spray Use in the nose. nitroglycerin sublingual (NITROSTAT) 0.[address] ONE(1) TABLET UNDER TONGUE NEEDED FOR CHEST PAIN. IF NO PAIN RELIEF CALL 911 losartan (COZAAR) 100 mg tablet Take 100 mg by mouth once daily. aspirin 81 mg chewable tablet Take 81 mg by mouth once daily. amLODIPine (NORVASC) 10 mg tablet Take 10 mg by mouth once daily. furosemide (LASIX) 20 mg tablet Take 40 mg by mouth once daily as needed. iv contrast (radiology procedure) CT Chest ABD/PEL-Inject, intravenously, once for 1 dose.No IV access, insert saline lock prior to the beginning of sedation, infusion, injection of imaging exam. Discontinue saline lock post exam. If Pt. has a central line or IVAD, may access for administration according to line specific nursing protocol. Once exam is complete flush line and de-access according to line specific nursing protocol in the CT contrast administration guidelines link. enteric contrast (radiology procedure) For CT CHESTABD/PEL W IVCON Routine order Administer, As Directed One Time Only, via Oral, Rectal, both Oral and Rectal, Enteric Tube, Stoma or Indwelling Catheter, Enteric Contrast as designated per enteric contrast guidelines COMPOUNDED PRESCRIPTION Adhesive Removers: ConvaTec Sensi- Care No Sting30/boxICD 10: Prolapsed Stoma K94.09 COMPOUNDED PRESCRIPTION Powder: Convatec Stomahesive 1 bottleICD 10: K 94.09 COMPOUNDED PRESCRIPTION Skin Barrier: Hollihesive 4x4 5/boxICD 10: Prolapsed Stoma K 94.09 No current facility-administered medications on file prior to visit. Health Maintenance TETANUS due on 07/10/1962 HEPATITIS C SCREENING due on 1995 PROSTATE CANCER SCREENING DISCUSSION due on 07/10/2001 COLORECTAL CANCER SCREENING,SEE MODIFIER due on 07/10/2001 ABDOMINAL AORTIC ANEURYSM SCREENING TOPIC due on 07/10/2016 ADULT PREVNAR-13 due on 07/10/2016 Physical Exam VITAL SIGNS: BP 154/69 Pulse 69 Wt 202 lb (91.6kg) General appearance: Cachectic in NAD Neck: Supple, no adenopathy; thyroid symmetric, normal size, no bruits Lungs: lungs clear to auscultation, no wheezing or rhonchi Heart: RRR without murmur, gallop, or rubs. No ectopy Abdomen: Prolaposed stoma, stoma back full of stool, no bleeding, no erythema noticed around the stoma site. Extremities:1+ Pedal edema. Peripheral pulses: Normal Assessment AND Plan 1. Chronic low back pain, unspecified back pain laterality, with sciatica presence unspecified - ICD9: 724.2, 338.29, ICD10: M54.5, G89.29 (primary diagnosis) - Etiology of the back pain likely 2/2 to DJD. ( Xray lumbar spine 11/13: Multilevel degenerative spondylosis ) - No red flag symptoms: fevers/ weight loss ( Last colonoscopy 07/2016 negative Per patient report , last PSA 5.79 - 06/23/2015) - CYCLOBENZAPRINE 10 MG TABLET - GABAPENTIN 300 MG CAPSULE - CONSULT TO PAIN MGT ANESTHESIA ( Patient agreed to see pain management- He also agreed to get his opioids prescriptions only through their team) 2. Colostomy prolapse (HCC) - ICD9: 569.69, ICD10: K94.09 - Diverticulitis c/b perforation (July 2016) s/p Chad with loop colostomy. - Follow up on [facility] recommendations: 3. Screening for prostate cancer - ICD9: V76.44, ICD10: Z12.5 - PSA/PROSTSPECAG SCRN 4. Need for lipid screening - ICD9: V77.91, ICD10: Z13.220 - LIPID PANEL BASIC 5. Need for hepatitis C screening test - ICD9: V73.89, ICD10: Z11.59 - HEP C AB IA W/CONF SCRN 6. Need for vaccination - ICD9: V05.9, ICD10: Z23 - TDAP VACCINE AGE 7+ IM ( Will be done during next visit ) Follow up plan during next visit: - Follow up [facility] plans regarding the surgery. - Provide TDAP vaccine, review other health maintenance - Follow up Pain management recs. - consult to care coordinators to help patient with medication compliance. - screening for diabetes - request records for the last Colonoscopy. SIGNATURE: Viral Ordonez MD PGY-3 Internal Medicine PAGER: [phone] DATE of SERVICE: April 19, 2017 TIME of SERVICE: 7:58 AM I have reviewed the history and physical obtained and documented by Dr. Ordonez above as well as personally interviewed, examined and reviewed all relevant records, data, labs, and imaging studies. I participated in the nelson components and agree with the assessment and plan as outlined by the resident physician. My own documentation is outlined below, which may augment or clarify information gathered by the resident physician. Briefly, Mr. Knott is a 66-year-old male with a past medical history significant for CAD s/p CABG x3 (XRLK-VTZ-fmgjnx, MDF-OMC-qqtutc, HDJ-HA5-hepbaejt) with his last PCI in 01/2016 ([facility]): GREY to proximal LAD, ischemic systolic congestive heart failure (EF 50%), diverticulitis complicated by a perforation (July 2016) s/p Chad with loop colostomy with chronic pain at the stoma site, on oxycodone and chronic back pain on Gabapentin 600 mg at bedtime who presents for follow-up for stoma prolapse. His main issue is that he needs a revision of the stoma and Chad but had a recent NSTEMI s/p stent which will require DAPT for least 6 months. He is due for some HM labs / vaccines. He needs to establish with pain management - I am not comfortable prescribing any opioids as he had been getting them for multiple sources over the past few months. [place] website checked and validated. Prescriptions have been INAPPROPRIATELY filled by multiple providers.- 04/19/2017 by Bijan Perez MD He is following with cardiology and [facility]. Bijan Perez M.D., M.A. Associate Staff Department of Internal Medicine Pager: [phone] PROGRESS Observed: 04/18/2017 Status: COMPLETED Source: [place] 3:33 PM [facility] REPOSITORY [facility] ID: [id number] Author: Nichole Cervantes (Mitchell) MITCHELL Torrez Service: (none) Author Type: Registered Nurse Type: Progress Notes Filed: 04/18/2017 3:39 PM Note Text: ET/WOCN Nursing Consult Topic: ET/WOCN Consultation Note ET Outcome: Assessment of needs. Per patient, the most successful pouching system has been the Dara 4 flange with drainable pouch. He did not bring any with him today. He states that home care helps him with pouch changes, and that he will call to reorder their services. He is scheduled for reversal in early May 2017 and he does not wish to change pouching systems. He does request that I write him a prescription and mail it to him. He will call me with additional order numbers that he needs and I will write and mail him a prescription. Stoma remains with large prolapse, but is red and moist. He declined pouch change, but the Dara 4 flange appears to be appropriate size. ET's Next Scheduled Visit: As needed Time Increment: 30 minutes Nichole Torrez RN (Terri), BSN, CWOCN CNNURSE Observed: 04/18/2017 Status: COMPLETED Source: [place] 2:00 PM [facility] REPOSITORY Nurse Visit ([facility]) MAXX KNOTT ([id number]) 1950 M Date Time Provider Department 04/18/17 2:00 PM STOMA THERAPY [facility] During your visit today, we recorded the following information about you: Nichole Torrez RN, RN 04/18/2017 3:39 PM Signed ET/WOCN Nursing Consult Topic: ET/WOCN Consultation Note ET Outcome: Assessment of needs. Per patient, the most successful pouching system has been the [place] 4ANDquot; flange with drainable pouch. He did not bring any with him today. He states that home care helps him with pouch changes, and that he will call to reorder their services. He is scheduled for reversal in early May 2017 and he does not wish to change pouching systems. He does request that I write him a prescription and mail it to him. He will call me with additional order numbers that he needs and I will write and mail him a prescription. Stoma remains with large prolapse, but is red and moist. He declined pouch change, but the [place] 4ANDquot; flange appears to be appropriate size. ET's Next Scheduled Visit: As needed Time Increment: 30 minutes Nichole (Francie) Shan RN, BSN, CWOCN Referring Provider: NITA CHURCH [[id number]] Allergies As of Date: 04/18/2017 Noted Allergy Reaction ALTASEPTIC 12/17/2016 16 - Unknown CRESTOR (ROSUVASTATIN CALCIUM) 12/17/2016 17 - Myalgia HCTZ (AMILORIDE-HYDROCHLOROTHIAZI*12/17/2016 7 - Swelling RAMIPRIL 12/17/2016 7 - Swelling SIMVASTATIN 12/17/2016 17 - Myalgia VOLTAREN (DICLOFENAC SODIUM) 12/17/2016 16 - Unknown Date Reviewed: 04/18/2017 Reviewed by: Ryan (Rn) MITCHELL Mcelroy - Fully Assessed Primary Visit Diagnosis:Diverticulitis [K57.92] Prescriptions as of 04/18/2017 Sig: CYCLOBENZAPRINE 10 MG TABLET Take 1 tablet by mouth daily * GABAPENTIN 300 MG CAPSULE Take 2 capsules by mouth dominik* METOPROLOL SUCCINATE ER 100 M* Take 1 tablet by mouth once d* QUETIAPINE 200 MG TABLET Take 2 tablets by mouth daily* HYDRALAZINE 10 MG TABLET Take 1 tablet by mouth three * OXYCODONE-ACETAMINOPHEN 5 MG-* Take 1-2 tablets by mouth antwan* CLOPIDOGREL 75 MG TABLET Take 1 tablet by mouth once d* COMPOUNDED PRESCRIPTION Adhesive Removers: ConvaTec S* COMPOUNDED PRESCRIPTION One Piece Ostomy Pouch Item T* COMPOUNDED PRESCRIPTION Paste: Convatec Stomahesive * COMPOUNDED PRESCRIPTION Powder: Convatec Stomahesive * COMPOUNDED PRESCRIPTION Skin Barrier: Hollihesive 4x4* PRAVASTATIN 40 MG TABLET Take 40 mg by mouth once dominik* MULTIVITAMIN AND MINERALS ORAL Take 1 capsule by mouth. ALBUTEROL SULFATE HFA 90 MCG/* Inhale as instructed. FLUTICASONE 50 MCG/ACTUATION * Use in the nose. 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 Chest pain [R07.9] INVALID FOR* Priority: A More... Hypertensive crisis [I16.9] INVALID FOR* Priority: B More... Healthcare maintenance [Z00.00] INVALID FOR* Priority: M More... Malnutrition of mild degree (HCC) [E44.1] INVALID FOR* Priority: L More... CHF (congestive heart failure) (HCC) [I50.9] INVALID FOR* Encounter Status:Closed by NICHOLE TORREZ on 04/18/17 PROGRESS Observed: 04/18/2017 Status: COMPLETED Source: [place] 1:16 PM [facility] ID: [id number] Author: Ro Yoo Service: (none) Author Type: Physician Type: Progress Notes Filed: 04/18/2017 4:01 PM Note Text: HPI Maxx Knott is a 66 year old male here today for prolapsed stoma. He has an appointment with ET nurses today. He had diverticulitis and underwent a diversion with a loop colostomy, no resections done. HE is doing fine otherwise. When he was admitted last he had elevated troponin with no clinical significance. NO fever no chills no NV no SOB no no CP Current Outpatient Prescriptions: cyclobenzaprine (FLEXERIL) 10 mg tablet Take 1 tablet by mouth daily at bedtime. gabapentin (NEURONTIN) 300 mg capsule Take 2 capsules by mouth daily at bedtime for 90 days. metoprolol succinate ER (TOPROL XL) 100 mg Tb24 Take 1 tablet by mouth once daily. QUEtiapine (SEROQUEL) 200 mg tablet Take 2 tablets by mouth daily at bedtime. hydrALAZINE (APRESOLINE) 10 mg tablet Take 1 tablet by mouth three times daily. oxyCODONE-acetaminophen (PERCOCET) 5-325 mg tablet Take 1- 2 tablets by mouth every 4 hours as needed for up to 3 days. clopidogrel (PLAVIX) 75 mg tablet Take 1 tablet by mouth once daily. COMPOUNDED PRESCRIPTION One Piece Ostomy Pouch Item Type: Coloplast Sensura One Piece Non-Sterile with Window 38-4 1/2'' ?5/BoxICD 10: Prolapsed Stoma K94.09 COMPOUNDED PRESCRIPTION Paste: Convatec Stomahesive 1 tubeICD 10: Prolapsed Stoma K 94.09 pravastatin (PRAVACHOL) 40 mg tablet Take 40 mg by mouth once daily. MULTIVIT WITH IRON,MINERALS (MULTIVITAMIN AND MINERALS ORAL) Take 1 capsule by mouth. albuterol HFA (PROVENTIL HFA, VENTOLIN HFA) 90 mcg/actuation inhaler Inhale as instructed. fluticasone (FLONASE) 50 mcg/actuation nasal spray Use in the nose. nitroglycerin sublingual (NITROSTAT) 0.[address] ONE(1) TABLET UNDER TONGUE NEEDED FOR CHEST PAIN. IF NO PAIN RELIEF CALL 911 losartan (COZAAR) 100 mg tablet Take 100 mg by mouth once daily. aspirin 81 mg chewable tablet Take 81 mg by mouth once daily. amLODIPine (NORVASC) 10 mg tablet Take 10 mg by mouth once daily. furosemide (LASIX) 20 mg tablet Take 40 mg by mouth once daily as needed. COMPOUNDED PRESCRIPTION Adhesive Removers: ConvaTec Sensi- Care No Sting30/boxICD 10: Prolapsed Stoma K94.09 COMPOUNDED PRESCRIPTION Powder: Convatec Stomahesive 1 bottleICD 10: K 94.09 COMPOUNDED PRESCRIPTION Skin Barrier: Hollihesive 4x4 5/boxICD 10: Prolapsed Stoma K 94.09 No current facility-administered medications for this visit. ALLERGIES Allergen Reactions - Altaseptic Unknown - Crestor [Rosuvastat* Myalgia - Hctz [Amiloride-Hyd* Swelling - Ramipril Swelling - Simvastatin Myalgia - Voltaren [Diclofena* Unknown Social History Substance Use Topics - Smoking status: Former Smoker Packs/day: 0.50 Years: 35.00 Types: Pipe, Cigarettes Quit date: 11/16/2016 - Smokeless tobacco: Never Used Comment: Quit cigarettes 11-16-16 now smoking 4 pipes as of 04-18-17 - Alcohol use No PAST MEDICAL HISTORY Diagnosis Date - CAD (coronary artery disease) 2005 CAD s/p CABG x3 (UPUS-FJU-nzqdlj, VKB-TND-cotvgq, IUJ-GJ9-lxxnvrbt) (2005 at [place]) - Current every day smoker PT SMOKES A PIPE - Diverticulitis Perforated Diverticulitis - Pacemaker 02/16/2017 s/p PPM () 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 PHYSICAL EXAM Ht 5' 8 (1.73m) Wt 203 lb (92.1kg) BMI 30.87 kg/(m2). General Appearance: Well appearing, alert, in no acute distress, well-hydrated, well nourished. Skin: Skin color, texture, turgor normal, no suspicious rashes or lesions Head: Normocephalic, no masses, lesions, tenderness or abnormalities Oropharynx: Lips, mucosa, and tongue normal, teeth and gums normal, oropharynx normal Neck: Supple, no adenopathy; thyroid symmetric, normal size, no bruits Lungs: Lungs clear to auscultation. No wheezing, rhonchi, rales Heart: RRR without murmur, gallop, or rubs. No ectopy Extremities: No deformities, edema, skin discoloration, clubbing or cyanosis. Good capillary refill. Neuro: Gait normal. Reflexes normal and symmetric. Sensation grossly intact. Abdomen: Normal abdominal exam, Abdomen soft, non-tender. Prolapsed loop colostomy Anorectal: Deferred Assessment s/p diverting loop colostomy due to Diverticulitis Willing to proceed with closure Likely will need sigmoid resection Plan RECOMMENDATION 1. Follow-up visit in 4-6 weeks . 2. Additional testing/consults: CT Chest/Abdomen/Pelvis (TRIPLE CONTRAST) Colonoscopy Ro Yoo MD DATE: 04/18/17 TIME: 1:17 PM CNOV Observed: 04/18/2017 Status: COMPLETED Source: [place] 12:40 PM [facility] REPOSITORY Office Visit (DONNELL) NIKOSAMXX Shekhar ([id number]) 1950 M Date Time Provider Department 04/18/17 12:40 PM Ro YOO During your visit today, we recorded the following information about you: Weight Height 92.1 kg 1.727 m Ro Yoo MD 04/18/2017 4:01 PM Signed HPI Maxx Corrigan Nikos is a 66 year old male here today for prolapsed stoma. He has an appointment with ET nurses today. He had diverticulitis and underwent a diversion with a loop colostomy, no resections done. HE is doing fine otherwise. When he was admitted last he had elevated troponin with no clinical significance. NO fever no chills no NV no SOB no no CP Current Outpatient Prescriptions: cyclobenzaprine (FLEXERIL) 10 mg tablet Take 1 tablet by mouth daily at bedtime. gabapentin (NEURONTIN) 300 mg capsule Take 2 capsules by mouth daily at bedtime for 90 days. metoprolol succinate ER (TOPROL XL) 100 mg Tb24 Take 1 tablet by mouth once daily. QUEtiapine (SEROQUEL) 200 mg tablet Take 2 tablets by mouth daily at bedtime. hydrALAZINE (APRESOLINE) 10 mg tablet Take 1 tablet by mouth three times daily. oxyCODONE-acetaminophen (PERCOCET) 5-325 mg tablet Take 1- 2 tablets by mouth every 4 hours as needed for up to 3 days. clopidogrel (PLAVIX) 75 mg tablet Take 1 tablet by mouth once daily. COMPOUNDED PRESCRIPTION One Piece Ostomy Pouch Item Type: Coloplast Sensura One Piece Non-Sterile with Window 07/05-2'' ?5/BoxICD 10: Prolapsed Stoma K94.09 COMPOUNDED PRESCRIPTION Paste: Convatec Stomahesive 1 tubeICD 10: Prolapsed Stoma K 94.09 pravastatin (PRAVACHOL) 40 mg tablet Take 40 mg by mouth once daily. MULTIVIT WITH IRON,MINERALS (MULTIVITAMIN AND MINERALS ORAL) Take 1 capsule by mouth. albuterol HFA (PROVENTIL HFA, VENTOLIN HFA) 90 mcg/actuation inhaler Inhale as instructed. fluticasone (FLONASE) 50 mcg/actuation nasal spray Use in the nose. nitroglycerin sublingual (NITROSTAT) 0.[address] ONE(1) TABLET UNDER TONGUE NEEDED FOR CHEST PAIN. IF NO PAIN RELIEF CALL 911 losartan (COZAAR) 100 mg tablet Take 100 mg by mouth once daily. aspirin 81 mg chewable tablet Take 81 mg by mouth once daily. amLODIPine (NORVASC) 10 mg tablet Take 10 mg by mouth once daily. furosemide (LASIX) 20 mg tablet Take 40 mg by mouth once daily as needed. COMPOUNDED PRESCRIPTION Adhesive Removers: ConvaTec Sensi- Care No Sting30/boxICD 10: Prolapsed Stoma K94.09 COMPOUNDED PRESCRIPTION Powder: Convatec Stomahesive 1 bottleICD 10: K 94.09 COMPOUNDED PRESCRIPTION Skin Barrier: Hollihesive 4x4 5/boxICD 10: Prolapsed Stoma K 94.09 No current facility-administered medications for this visit. ALLERGIES Allergen Reactions - Altaseptic Unknown - Crestor [Rosuvastat* Myalgia - Hctz [Amiloride-Hyd* Swelling - Ramipril Swelling - Simvastatin Myalgia - Voltaren [Diclofena* Unknown Social History Substance Use Topics - Smoking status: Former Smoker Packs/day: 0.50 Years: 35.00 Types: Pipe, Cigarettes Quit date: 11/16/2016 - Smokeless tobacco: Never Used Comment: Quit cigarettes 11-16-16 now smoking 4 pipes as of 04-18-17 - Alcohol use No PAST MEDICAL HISTORY Diagnosis Date - CAD (coronary artery disease) 2005 CAD s/p CABG x3 (XRJX-UTG-bdnewy, VLA-IQN-aznaft, OYG-AN0-szdcvnto) (2005 at [place]) - Current every day smoker PT SMOKES A PIPE - Diverticulitis Perforated Diverticulitis - Pacemaker 02/16/2017 s/p PPM () 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 PHYSICAL EXAM Ht 5' 8ANDquot; (1.73m) Wt 203 lb (92.1kg) BMI 30.87 kg/(m2). General Appearance: Well appearing, alert, in no acute distress, well-hydrated, well nourished. Skin: Skin color, texture, turgor normal, no suspicious rashes or lesions Head: Normocephalic, no masses, lesions, tenderness or abnormalities Oropharynx: Lips, mucosa, and tongue normal, teeth and gums normal, oropharynx normal Neck: Supple, no adenopathy; thyroid symmetric, normal size, no bruits Lungs: Lungs clear to auscultation. No wheezing, rhonchi, rales Heart: RRR without murmur, gallop, or rubs. No ectopy Extremities: No deformities, edema, skin discoloration, clubbing or cyanosis. Good capillary refill. Neuro: Gait normal. Reflexes normal and symmetric. Sensation grossly intact. Abdomen: Normal abdominal exam, Abdomen soft, non-tender. Prolapsed loop colostomy Anorectal: Deferred Assessment s/p diverting loop colostomy due to Diverticulitis Willing to proceed with closure Likely will need sigmoid resection Plan RECOMMENDATION 1. Follow-up visit in 4-6 weeks . 2. Additional testing/consults: CT Chest/Abdomen/Pelvis (TRIPLE CONTRAST) Colonoscopy Ro Yoo MD DATE: 12/20/17 TIME: 1:17 PM Lemuel Moy MD 04/18/2017 2:44 PM Signed CONSCIOUS SEDATION How to Prepare for Your Colonoscopy Using Golytely, Nulytely, Trilyte, or Colyte Preparations IMPORTANT - Please Read These Instructions at Least 2 Weeks Before Your Colonoscopy Nelson Instructions: Your bowel must be empty so that your doctor can clearly view your colon. Follow all of the instructions in this handout EXACTLY as they are written. If you do NOT follow the directions for when to start drinking the bowel preparation (see next page), your colonoscopy WILL be cancelled. ? Do NOT eat any solid food the ENTIRE day before your colonoscopy. ? Buy your bowel preparation at least 5 days before your colonoscopy. ? Do NOT mix the solution until the day before your colonoscopy. Designated Dicer Machine Operator on the Day of Your Exam A responsible family member or friend MUST come with you to your colonoscopy and REMAIN in the endoscopy area until you are discharged! You are NOT ALLOWED to drive, take a taxi or bus, or leave the [facility] Center ALONE. If you do not have a responsible route delivery service driver (family member or friend) with you to take you home, your exam can not be done with sedation and will be cancelled. Medications Some of the medicines you take may need to be stopped or adjusted before your colonoscopy. You MUST call the doctor who ordered any of the following medicines at least 2 weeks before your colonoscopy. ? Blood Thinners -- such as Coumadin? (warfarin), Plavix ? (clopidogrel), Ticlid ? (ticlopidine hydrochloride), Agrylin ? (anagrelide), Xarelto (rivaroxaban), Pradaxa (dabigatran), and Effient (Prasugrel). ? Insulin or diabetes pills. Please call the doctor that monitors your glucose levels. Your insulin dosage may need to be adjusted due to diet restrictions required with this bowel preparation. (Please bring your diabetes medications with you on the day of your procedure.) If you take aspirin, continue it and ALL other medications prescribed by your doctor. On the day of your colonoscopy, take your medications with a sip of water. Five (5) Days Before Your Colonoscopy Do NOT take medications that stop diarrhea-- such as Imodium?, Kaopectate?, or Pepto Bismol?. Do NOT take fiber supplements--such as Metamucil?, Citrucel?, or Perdiem?. Do NOT take products that contain iron--such as multi-vitamins--(the label lists what is in the products). Do NOT take vitamin E. Buy the prescription bowel preparation at your local pharmacy or drugstore. Three (3) Days Before Your Colonoscopy Do NOT eat high-fiber foods--such as popcorn, beans, seeds (flax, sunflower, quinoa), multigrain bread, nuts, salad/vegetables, or fresh and dried fruit. One (1) Day Before Your Colonoscopy Only drink clear liquids the ENTIRE DAY before your colonoscopy. Do NOT eat any solid foods. Drink at least 8 ounces of clear liquids every hour after waking up. The clear liquids you can drink include: ? water, apple or white grape juice; broth; coffee or tea (without milk or creamer); clear carbonated beverages such as lemuel ashley or lemon-nondalton soda; Gatorade? or other sports drinks (not red); Sae-Aid? or other flavored drinks (not red); plain jello or other gelatins (not red); popsicles (not red) ? Do NOT drink alcohol on the day before or the day of the procedure. When to Mix and Drink Your Bowel Preparation Follow the instructions on the label. After mixing, place the solution in the refrigerator for a couple of hours before drinking. You may add the flavor packet that came with the bowel preparation. DO NOT add ice, sugar or any flavorings to the solution. There are two ways your doctor may dose the bowel preparation for your colonoscopy. Follow the dosing recommendations, split dosing or single dosing, as prescribed by your doctor. Split dosing cleans the bowel better and is easier to drink than single dosing. Split dosing means you drink half of the bowel preparation the evening before the colonoscopy and half of the bowel preparation the morning of the colonoscopy. Single dosing means you drink all of the bowel preparation on a single day Morning Appointment (Before 12 noon) Split Dosing Step 1: Start drinking the bowel preparation at 6 PM the evening before your colonoscopy. Drink an 8 oz glass of bowel preparation every 10 minutes for a total of 8 glasses. You may continue to drink clear liquids until bedtime. Step 2: The day of the colonoscopy (4 hours before your exam). Drink an 8 oz glass of bowel preparation every 10 minutes for a total of 8 glasses. You may continue to drink clear liquids up to 2 hours before your exam. If you take aspirin, take it and ALL other prescribed medicines with a sip of water on the day of your colonoscopy. OR Single Dosing, Evening Before Colonoscopy Start drinking the bowel preparation at 6 PM the evening before your colonoscopy. Drink an 8 oz glass of bowel preparation every 10 minutes. You must finish drinking the solution by 9 PM. You may continue to drink clear liquids up to 2 hours before your exam. If you take aspirin, take it and ALL other prescribed medicines with a sip of water on the day of your colonoscopy. Afternoon Appointment (After 12 noon) Single Dosing, Morning of Colonoscopy Start drinking the bowel preparation at 6 AM the day of your colonoscopy. Drink an 8 oz glass of bowel preparation every 10 minutes. You must finish drinking the solution by 9 AM. You may continue to drink clear liquids up to 2 hours before your exam. If you take aspirin, take it and ALL other prescribed medicines with a sip of water on the day of your colonoscopy. Contact Information If you are unable to keep your appointment or have any questions about the instructions, please call the facility where the procedure is being performed. Call between the hours of 8:00 AM and 5:00 PM. If you are calling after 5:00 PM, please call Nurse isolation washer at [phone]. COLONOSCOPY PROCEDURE OVERVIEW Please read prior to the procedure What is a Colonoscopy? A colonoscopy is an outpatient procedure in which the inside of the large intestine (colon and rectum) is examined. A colonoscopy is commonly used to evaluate gastrointestinal symptoms, such as rectal and intestinal bleeding, abdominal pain, or changes in bowel habits. Colonoscopies are also performed in individuals without symptoms to check for colorectal polyps or cancer. A screening colonoscopy is recommended for anyone 50 years of age and older, and for anyone with parents, siblings or children with a history of colorectal cancer or polyps. What happens before a colonoscopy? To have a successful colonoscopy, your bowel must be empty so that your physician can clearly view the colon. To do this, it is very important to read and follow all of the instructions given to you at least 2 weeks BEFORE your exam. If your bowel is not empty, your colonoscopy will not be successful and may have to be repeated. If you feel nauseated or vomit while taking the bowel preparation, wait 30 minutes before drinking more fluid and start with small sips of solution. Some activity (such as walking) or a few soda crackers may help decrease the nausea you are feeling. If the nausea persists, please contact nurse process automation engineer at [phone]. You may experience skin irritation around the anus due to the passage of liquid stools. To prevent and treat skin irritation, you should: Apply Vaseline or Desitin ointment to the skin around the anus before drinking the bowel preparation medications. These products can be purchased at any drug store. Wipe the skin after each bowel movement with disposable wet wipes instead of toilet paper. These are found in the toilet paper area of the store. Sit in a bathtub filled with warm water for 10 to 15 minutes after you finish passing a stool; after soaking, blot the skin dry with a soft cloth, apply Vaseline or Desitin ointment to the anal area, and place a cotton ball just outside your anus to absorb leaking fluid. What happens during a colonoscopy? During a colonoscopy, an experienced physician uses a colonoscope (a long, flexible instrument about 1/2 inch in diameter) to view the lining of the colon. The colonoscope is inserted into the rectum and advanced through the large intestine. If necessary during a colonoscopy, small amounts of tissue can be removed for analysis (a biopsy) and polyps can be identified and entirely removed. In many cases, a colonoscopy allows accurate diagnosis and treatment of colorectal problems without the need for a major operation. You are asked to wear a hospital gown and an IV will be started. You are given a pain reliever and a sedative intravenously (in your vein). You will feel relaxed and somewhat drowsy. You will lie on your left side, with your knees drawn up towards your chest. A small amount of air is used to expand the colon so the physician can see the colon barragan. You may feel mild cramping during the procedure. Cramping can be reduced by taking slow, deep breaths. The colonoscope is slowly withdrawn while the lining of your bowel is carefully examined. The procedure lasts from 30 minutes to 1 hour. What happens after a colonoscopy? You will stay in a recovery room for observation until you are ready for discharge. You may feel some cramping or a sensation of having gas, but this quickly passes. If sedation has been given, a responsible route delivery service driver (a family member or friend) must drive you home. Avoid alcohol, driving, and operating machinery for 24 hours following the procedure. Unless otherwise instructed, you may immediately return to your normal diet. We recommend you wait until the day after your procedure to resume normal activities. If polyps were removed or a biopsy was taken, the physician performing your colonoscopy will tell you when it is safe to resume taking your blood thinners. If a biopsy was taken or a polyp was removed, you may notice a little amount of rectal bleeding for 1 to 2 days after the procedure. If you have a large amount of rectal bleeding, high or persistent fevers, or severe abdominal pain within the next 2 weeks, please go to your local emergency room and call the physician who performed your exam. Referring Provider: NITA CHURCH [[id number]] Allergies As of Date: 04/18/2017 Noted Allergy Reaction ALTASEPTIC 12/17/2016 16 - Unknown CRESTOR (ROSUVASTATIN CALCIUM) 12/17/2016 17 - Myalgia HCTZ (AMILORIDE-HYDROCHLOROTHIAZI*12/17/2016 7 - Swelling RAMIPRIL 12/17/2016 7 - Swelling SIMVASTATIN 12/17/2016 17 - Myalgia VOLTAREN (DICLOFENAC SODIUM) 12/17/2016 16 - Unknown Date Reviewed: 04/18/2017 Reviewed by: Ryna (Rn) MITCHELL Mcelroy - Fully Assessed Reason for Visit: prolapsed stoma [Other] Primary Visit Diagnosis:Diverticulitis [K57.92] Order(s):PADMINI PT ED DIGESTIVE DISEASES [[id number]] Order #: [id number]: 1 CT ABD/PEL W IVCON [[id number]] Order #: [id number] FUTURE iv contrast (radiology procedure)CT Chest ABD/PEL-Inject, intravenously, once for 1 dose.No IV access, insert saline lock prior to the beginning of sedation, infusion, injection of imaging exam. Discontinue saline lock post exam. If Pt. has a central line or IVAD, may access for administration according to line specific nursing protocol. Once exam is complete flush line and de- access according to line specific nursing protocol in the CT contrast administration guidelines link.Disp: 1 EachRfl: 0 enteric contrast (radiology procedure)For CT CHESTABD/PEL W IVCON Routine order Administer, As Directed One Time Only, via Oral, Rectal, both Oral and Rectal, Enteric Tube, Stoma or Indwelling Catheter, Enteric Contrast as designated per enteric contrast guidelinesDisp: 1 EachRfl: 1 COLONOSCOPY - DIAGNOSTIC [[id number]] Order #: [id number] FUTURE GASTROGRAFFIN ENEMA [[id number]] Order #: [id number]: 1 Prescriptions as of 04/18/2017 Sig: CYCLOBENZAPRINE 10 MG TABLET Take 1 tablet by mouth daily * GABAPENTIN 300 MG CAPSULE Take 2 capsules by mouth dominik* METOPROLOL SUCCINATE ER 100 M* Take 1 tablet by mouth once d* QUETIAPINE 200 MG TABLET Take 2 tablets by mouth daily* HYDRALAZINE 10 MG TABLET Take 1 tablet by mouth three * OXYCODONE-ACETAMINOPHEN 5 MG-* Take 1-2 tablets by mouth antwan* CLOPIDOGREL 75 MG TABLET Take 1 tablet by mouth once d* COMPOUNDED PRESCRIPTION One Piece Ostomy Pouch Item T* COMPOUNDED PRESCRIPTION Paste: Convatec Stomahesive * PRAVASTATIN 40 MG TABLET Take 40 mg by mouth once dominik* MULTIVITAMIN AND MINERALS ORAL Take 1 capsule by mouth. ALBUTEROL SULFATE HFA 90 MCG/* Inhale as instructed. FLUTICASONE 50 MCG/ACTUATION * Use in the nose. NITROGLYCERIN 0.4 MG SUBL[address]U* PLACE ONE(1) TABLET UNDER TON* LOSARTAN 100 MG TABLET Take 100 mg by mouth once roddy* ASPIRIN 81 MG CHEWABLE TABLET Take 81 mg by mouth once dominik* AMLODIPINE 10 MG TABLET Take 10 mg by mouth once dominik* FUROSEMIDE 20 MG TABLET Take 40 mg by mouth once dominik* IV CONTRAST (RADIOLOGY PROCED* CT Chest ABD/PEL-Inject, intr* ENTERIC CONTRAST (RADIOLOGY P* For CT CHESTABD/PEL W IVCON R* COMPOUNDED PRESCRIPTION Adhesive Removers: ConvaTec S* COMPOUNDED PRESCRIPTION Powder: Convatec Stomahesive * COMPOUNDED PRESCRIPTION Skin Barrier: Hollihesive 4x4* Medication notes this encounter COMPOUNDED PRESCRIPTION >> Ryan Mcelroy RN, RN 04/18/2017 1:15 PM >> RYAN MCELROY SunApr 18, 2017 1:15 PM Not using COMPOUNDED PRESCRIPTION >> Ryan Mcelroy RN, RN 04/18/2017 1:15 PM >> RYAN MCELROY SunApr 18, 2017 1:15 PM Not using COMPOUNDED PRESCRIPTION >> Ryan Mcelroy, RN, RN 04/18/2017 1:15 PM >> RYNA MCELROY SunApr 18, 2017 1:15 PM Not using Problem List As Of Date 04/18/2017 Noted Resolved 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 Chest pain [R07.9] INVALID FOR* Priority: A More... Hypertensive crisis [I16.9] INVALID FOR* Priority: B More... Healthcare maintenance [Z00.00] INVALID FOR* Priority: M More... Malnutrition of mild degree (HCC) [E44.1] INVALID FOR* Priority: L More... CHF (congestive heart failure) (HCC) [I50.9] INVALID FOR* Other instructions from your clinician: CONSCIOUS SEDATION How to Prepare for Your Colonoscopy Using Golytely, Nulytely, Trilyte, or Colyte Preparations IMPORTANT - Please Read These Instructions at Least 2 Weeks Before Your Colonoscopy Nelson Instructions: Your bowel must be empty so that your doctor can clearly view your colon. Follow all of the instructions in this handout EXACTLY as they are written. If you do NOT follow the directions for when to start drinking the bowel preparation (see next page), your colonoscopy WILL be cancelled. ? Do NOT eat any solid food the ENTIRE day before your colonoscopy. ? Buy your bowel preparation at least 5 days before your colonoscopy. ? Do NOT mix the solution until the day before your colonoscopy. Designated Dicer Machine Operator on the Day of Your Exam A responsible family member or friend MUST come with you to your colonoscopy and REMAIN in the endoscopy area until you are discharged! You are NOT ALLOWED to drive, take a taxi or bus, or leave the [facility] Center ALONE. If you do not have a responsible route delivery service driver (family member or friend) with you to take you home, your exam can not be done with sedation and will be cancelled. Medications Some of the medicines you take may need to be stopped or adjusted before your colonoscopy. You MUST call the doctor who ordered any of the following medicines at least 2 weeks before your colonoscopy. ? Blood Thinners -- such as Coumadin? (warfarin), Plavix ? (clopidogrel), Ticlid ? (ticlopidine hydrochloride), Agrylin ? (anagrelide), Xarelto (rivaroxaban), Pradaxa (dabigatran), and Effient (Prasugrel). ? Insulin or diabetes pills. Please call the doctor that monitors your glucose levels. Your insulin dosage may need to be adjusted due to diet restrictions required with this bowel preparation. (Please bring your diabetes medications with you on the day of your procedure.) If you take aspirin, continue it and ALL other medications prescribed by your doctor. On the day of your colonoscopy, take your medications with a sip of water. Five (5) Days Before Your Colonoscopy Do NOT take medications that stop diarrhea-- such as Imodium?, Kaopectate?, or Pepto Bismol?. Do NOT take fiber supplements--such as Metamucil?, Citrucel?, or Perdiem?. Do NOT take products that contain iron--such as multi-vitamins--(the label lists what is in the products). Do NOT take vitamin E. Buy the prescription bowel preparation at your local pharmacy or drugstore. Three (3) Days Before Your Colonoscopy Do NOT eat high-fiber foods--such as popcorn, beans, seeds (flax, sunflower, quinoa), multigrain bread, nuts, salad/vegetables, or fresh and dried fruit. One (1) Day Before Your Colonoscopy Only drink clear liquids the ENTIRE DAY before your colonoscopy. Do NOT eat any solid foods. Drink at least 8 ounces of clear liquids every hour after waking up. The clear liquids you can drink include: ? water, apple or white grape juice; broth; coffee or tea (without milk or creamer); clear carbonated beverages such as lemuel ashley or lemon-nondalton soda; Gatorade? or other sports drinks (not red); Sae- Aid? or other flavored drinks (not red); plain jello or other gelatins (not red); popsicles (not red) ? Do NOT drink alcohol on the day before or the day of the procedure. When to Mix and Drink Your Bowel Preparation Follow the instructions on the label. After mixing, place the solution in the refrigerator for a couple of hours before drinking. You may add the flavor packet that came with the bowel preparation. DO NOT add ice, sugar or any flavorings to the solution. There are two ways your doctor may dose the bowel preparation for your colonoscopy. Follow the dosing recommendations, split dosing or single dosing, as prescribed by your doctor. Split dosing cleans the bowel better and is easier to drink than single dosing. Split dosing means you drink half of the bowel preparation the evening before the colonoscopy and half of the bowel preparation the morning of the colonoscopy. Single dosing means you drink all of the bowel preparation on a single day Morning Appointment (Before 12 noon) Split Dosing Step 1: Start drinking the bowel preparation at 6 PM the evening before your colonoscopy. Drink an 8 oz glass of bowel preparation every 10 minutes for a total of 8 glasses. You may continue to drink clear liquids until bedtime. Step 2: The day of the colonoscopy (4 hours before your exam). Drink an 8 oz glass of bowel preparation every 10 minutes for a total of 8 glasses. You may continue to drink clear liquids up to 2 hours before your exam. If you take aspirin, take it and ALL other prescribed medicines with a sip of water on the day of your colonoscopy. OR Single Dosing, Evening Before Colonoscopy Start drinking the bowel preparation at 6 PM the evening before your colonoscopy. Drink an 8 oz glass of bowel preparation every 10 minutes. You must finish drinking the solution by 9 PM. You may continue to drink clear liquids up to 2 hours before your exam. If you take aspirin, take it and ALL other prescribed medicines with a sip of water on the day of your colonoscopy. Afternoon Appointment (After 12 noon) Single Dosing, Morning of Colonoscopy Start drinking the bowel preparation at 6 AM the day of your colonoscopy. Drink an 8 oz glass of bowel preparation every 10 minutes. You must finish drinking the solution by 9 AM. You may continue to drink clear liquids up to 2 hours before your exam. If you take aspirin, take it and ALL other prescribed medicines with a sip of water on the day of your colonoscopy. Contact Information If you are unable to keep your appointment or have any questions about the instructions, please call the facility where the procedure is being performed. Call between the hours of 8:00 AM and 5:00 PM. If you are calling after 5:00 PM, please call Nurse isolation washer at [phone]. COLONOSCOPY PROCEDURE OVERVIEW Please read prior to the procedure What is a Colonoscopy? A colonoscopy is an outpatient procedure in which the inside of the large intestine (colon and rectum) is examined. A colonoscopy is commonly used to evaluate gastrointestinal symptoms, such as rectal and intestinal bleeding, abdominal pain, or changes in bowel habits. Colonoscopies are also performed in individuals without symptoms to check for colorectal polyps or cancer. A screening colonoscopy is recommended for anyone 50 years of age and older, and for anyone with parents, siblings or children with a history of colorectal cancer or polyps. What happens before a colonoscopy? To have a successful colonoscopy, your bowel must be empty so that your physician can clearly view the colon. To do this, it is very important to read and follow all of the instructions given to you at least 2 weeks BEFORE your exam. If your bowel is not empty, your colonoscopy will not be successful and may have to be repeated. If you feel nauseated or vomit while taking the bowel preparation, wait 30 minutes before drinking more fluid and start with small sips of solution. Some activity (such as walking) or a few soda crackers may help decrease the nausea you are feeling. If the nausea persists, please contact nurse process automation engineer at [phone]. You may experience skin irritation around the anus due to the passage of liquid stools. To prevent and treat skin irritation, you should: Apply Vaseline or Desitin ointment to the skin around the anus before drinking the bowel preparation medications. These products can be purchased at any drug store. Wipe the skin after each bowel movement with disposable wet wipes instead of toilet paper. These are found in the toilet paper area of the store. Sit in a bathtub filled with warm water for 10 to 15 minutes after you finish passing a stool; after soaking, blot the skin dry with a soft cloth, apply Vaseline or Desitin ointment to the anal area, and place a cotton ball just outside your anus to absorb leaking fluid. What happens during a colonoscopy? During a colonoscopy, an experienced physician uses a colonoscope (a long, flexible instrument about 1/2 inch in diameter) to view the lining of the colon. The colonoscope is inserted into the rectum and advanced through the large intestine. If necessary during a colonoscopy, small amounts of tissue can be removed for analysis (a biopsy) and polyps can be identified and entirely removed. In many cases, a colonoscopy allows accurate diagnosis and treatment of colorectal problems without the need for a major operation. You are asked to wear a hospital gown and an IV will be started. You are given a pain reliever and a sedative intravenously (in your vein). You will feel relaxed and somewhat drowsy. You will lie on your left side, with your knees drawn up towards your chest. A small amount of air is used to expand the colon so the physician can see the colon barragan. You may feel mild cramping during the procedure. Cramping can be reduced by taking slow, deep breaths. The colonoscope is slowly withdrawn while the lining of your bowel is carefully examined. The procedure lasts from 30 minutes to 1 hour. What happens after a colonoscopy? You will stay in a recovery room for observation until you are ready for discharge. You may feel some cramping or a sensation of having gas, but this quickly passes. If sedation has been given, a responsible route delivery service driver (a family member or friend) must drive you home. Avoid alcohol, driving, and operating machinery for 24 hours following the procedure. Unless otherwise instructed, you may immediately return to your normal diet. We recommend you wait until the day after your procedure to resume normal activities. If polyps were removed or a biopsy was taken, the physician performing your colonoscopy will tell you when it is safe to resume taking your blood thinners. If a biopsy was taken or a polyp was removed, you may notice a little amount of rectal bleeding for 1 to 2 days after the procedure. If you have a large amount of rectal bleeding, high or persistent fevers, or severe abdominal pain within the next 2 weeks, please go to your local emergency room and call the physician who performed your exam. Prescriptions ordered this encounter Disp Refills Start End IV CONTRAST (RADIOLOGY PROCEDURE) 1 Ea* 0 04/18/2017 04/19/2017 Class: In Office Sig: CT Chest ABD/PEL-Inject, intravenously, once for 1 dose.No IV access, insert saline lock prior to the beginning of sedation, infusion, injection of imaging exam. Discontinue saline lock post exam. If Pt. has a central line or IVAD, may access for administration according to line specific nursing protocol. Once exam is complete flush line and de-access according to line specific nursing protocol in the CT contrast administration guidelines link. ENTERIC CONTRAST (RADIOLOGY PROCEDUR* 1 Ea* 1 04/18/2017 04/19/2017 Class: In Office Sig: For CT CHESTABD/PEL W IVCON Routine order Administer, As Directed One Time Only, via Oral, Rectal, both Oral and Rectal, Enteric Tube, Stoma or Indwelling Catheter, Enteric Contrast as designated per enteric contrast guidelines Encounter Status:Closed by Ro YOO MD on 04/18/17 CNOV Observed: 04/18/2017 Status: COMPLETED Source: [place] 10:55 AM [facility] REPOSITORY Office Visit (INTMMN) MAXX KNOTT ([id number]) 1950 M Date Time Provider Department 04/18/17 10:55 AM VIRAL ORDONEZ ([facility]) INTMMN During your visit today, we recorded the following information about you: Pulse Blood pressure Weight 69/minute 154/69 91.6 kg Katharina Rojo MA, MA 04/18/2017 10:17 AM Signed Maxx Corrigan Nikos is a 66 year old male here today for visit in Internal Medicine Patient has been identified by name and date of for verification purposes. Allergies have been reviewed and verified. They include the following: Altaseptic; Crestor [Rosuvastatin Calcium]; Hctz [Amiloride-Hydrochlorothiazide]; Ramipril; Simvastatin; Voltaren [Diclofenac Sodium] Health Maintenance has been reviewed and updated. TETANUS HEPATITIS C SCREENING PROSTATE CANCER SCREENING DISCUSSION COLORECTAL CANCER SCREENING,SEE MODIFIER ABDOMINAL AORTIC ANEURYSM SCREENING TOPIC ADULT PREVNAR-13 Pharmacy benefits have been run and correct pharmacy has been verified. Yes Medication - prescribed and OTC reviewed and updated: Yes Refills have been pended for physician review and filing. Yes Patient Accepted refills to be pended. Is the patient active on MyChart Yes PENDING SUNI Hernandez MD, MD 04/19/2017 10:58 AM Signed Transitional Care Management Progress Note ? The patients TCM visit was performed within the 7 days of discharge. ? Patient's Date of discharge: 04/17/2017 Date of initial coordinator contact after discharge: no call, patient is present for hospital follow up appointment Discharge diagnosis: colostomy prolapse Medication review completed No, to be done during office visit ? ? Katharina Rojo MA [facility] Out[facility]PD PROGRESS NOTE Date of Service: April 19, 2017 PCP: Bijan Perez MD Patient: Maxx Knott Preceptor: Chief complaint: Hospital discharge follow up History of Present Illness: Maxx Knott is a 66 year old gentleman with PMHx: - CAD s/p CABG x3 (ZBLJ-TJV-vfaymi, GDX-GKC-bdcxfo, GCS-AL4-qqanruix), Last PCI 01/2016 ( [facility] ): GREY to proximal LAD. - systolic congestive heart failure, ischemic (EF 50%). - Diverticulitis c/b perforation (July 2016) s/p Chad with loop colostomy. - Chronic pain at the stoma site, on oxycodone. - Chronic back pain on Gabapentin 600 mg at bedtime. Patient presented for after hospital follow up visit. Main complain is Stoma prolapse/ Pain. Otherwise denies any other ongoing issues. Per hospital discharge summary: 66 year old male with a history of CAD s/p CABG x3 (ITLX-EML-lthtrd, WWJ-HPF-pilrma, OBJ-WP9-tayypvim) (2006 at [place]), systolic congestive heart failure, ischemic (EF 50%), Diverticulitis c/b perforation (July 2016) s/p Chad with loop colostomy (with frequent ED visits for prolapsed stoma) who presents with a prolapsed stoma. Colorectal surgery reviewed his case and ultimately decided that he needs to follow up on an outpatient basis for further evaluation. For his chest pain he had cardiac markers followed up that were negative. Cardiology was consulted for pre-op clearance and no further intervention was advised. He was discharged to follow with cards and colorectal surgery on an outpatient basis. Reviewing his chart and care everywhere revealed multiple hospital/ ED visits for Stoma-pain, prolapse, and Opioids prescriptions from different places. Patient will be seen by [facility] and Cardiology today to finalize the plan about the time of surgery ( which will likely be delayed for few months given recent GREY in proximal LAD and the DAPT) Review of Systems GENERAL: No weight loss, malaise or fever. NECK: Negative for lumps, goiter, pain and significant neck swelling. RESPIRATORY: Negative for cough, wheezing or shortness of breath. CARDIOVASCULAR: Positive for intermittent chest pain and SOB. GI: Negative for dysphagia, nausea, vomiting, abdominal discomfort, blood in stools or black stools or change in bowel habits. Urinary: Dysuria, hematuria, Stomal Pain is present MUSCULOSKELETAL: Back pain ENDOCRINE: Negative for cold or heat intolerance, polyuria, polydipsia and goiter. NEURO: No headaches, syncope, weakness, numbness, seizures or tremors. All other reviewed and negative other than HPI. Current Medications Current Outpatient Prescriptions on File Prior to Visit: oxyCODONE-acetaminophen (PERCOCET) 5-325 mg tablet Take 1- 2 tablets by mouth every 4 hours as needed for up to 3 days. clopidogrel (PLAVIX) 75 mg tablet Take 1 tablet by mouth once daily. COMPOUNDED PRESCRIPTION One Piece Ostomy Pouch Item Type: Coloplast Sensura One Piece Non-Sterile with Window 3/8-4 1/2'' ?5/BoxICD 10: Prolapsed Stoma K94.09 COMPOUNDED PRESCRIPTION Paste: Convatec Stomahesive 1 tubeICD 10: Prolapsed Stoma K 94.09 pravastatin (PRAVACHOL) 40 mg tablet Take 40 mg by mouth once daily. MULTIVIT WITH IRON,MINERALS (MULTIVITAMIN AND MINERALS ORAL) Take 1 capsule by mouth. albuterol HFA (PROVENTIL HFA, VENTOLIN HFA) 90 mcg/actuation inhaler Inhale as instructed. fluticasone (FLONASE) 50 mcg/actuation nasal spray Use in the nose. nitroglycerin sublingual (NITROSTAT) 0.[address] ONE(1) TABLET UNDER TONGUE NEEDED FOR CHEST PAIN. IF NO PAIN RELIEF CALL 911 losartan (COZAAR) 100 mg tablet Take 100 mg by mouth once daily. aspirin 81 mg chewable tablet Take 81 mg by mouth once daily. amLODIPine (NORVASC) 10 mg tablet Take 10 mg by mouth once daily. furosemide (LASIX) 20 mg tablet Take 40 mg by mouth once daily as needed. iv contrast (radiology procedure) CT Chest ABD/PEL-Inject, intravenously, once for 1 dose.No IV access, insert saline lock prior to the beginning of sedation, infusion, injection of imaging exam. Discontinue saline lock post exam. If Pt. has a central line or IVAD, may access for administration according to line specific nursing protocol. Once exam is complete flush line and de-access according to line specific nursing protocol in the CT contrast administration guidelines link. enteric contrast (radiology procedure) For CT CHESTABD/PEL W IVCON Routine order Administer, As Directed One Time Only, via Oral, Rectal, both Oral and Rectal, Enteric Tube, Stoma or Indwelling Catheter, Enteric Contrast as designated per enteric contrast guidelines COMPOUNDED PRESCRIPTION Adhesive Removers: ConvaTec Sensi- Care No Sting30/boxICD 10: Prolapsed Stoma K94.09 COMPOUNDED PRESCRIPTION Powder: Convatec Stomahesive 1 bottleICD 10: K 94.09 COMPOUNDED PRESCRIPTION Skin Barrier: Hollihesive 4x4 5/boxICD 10: Prolapsed Stoma K 94.09 No current facility-administered medications on file prior to visit. Health Maintenance TETANUS due on 07/10/1962 HEPATITIS C SCREENING due on 1995 PROSTATE CANCER SCREENING DISCUSSION due on 07/10/2001 COLORECTAL CANCER SCREENING,SEE MODIFIER due on 07/10/2001 ABDOMINAL AORTIC ANEURYSM SCREENING TOPIC due on 07/10/2016 ADULT PREVNAR-13 due on 07/10/2016 Physical Exam VITAL SIGNS: BP 154/69 Pulse 69 Wt 202 lb (91.6kg) General appearance: Cachectic in NAD Neck: Supple, no adenopathy; thyroid symmetric, normal size, no bruits Lungs: lungs clear to auscultation, no wheezing or rhonchi Heart: RRR without murmur, gallop, or rubs. No ectopy Abdomen: Prolaposed stoma, stoma back full of stool, no bleeding, no erythema noticed around the stoma site. Extremities:1+ Pedal edema. Peripheral pulses: Normal Assessment ANDamp; Plan 1. Chronic low back pain, unspecified back pain laterality, with sciatica presence unspecified - ICD9: 724.2, 338.29, ICD10: M54.5, G89.29 (primary diagnosis) - Etiology of the back pain likely 2/2 to DJD. ( Xray lumbar spine 11/13: Multilevel degenerative spondylosis ) - No red flag symptoms: fevers/ weight loss ( Last colonoscopy 07/2016 negative ANDquot; Per patient report ANDquot;, last PSA 5.79 - 06/23/2015) - CYCLOBENZAPRINE 10 MG TABLET - GABAPENTIN 300 MG CAPSULE - CONSULT TO PAIN MGT ANESTHESIA ( Patient agreed to see pain management- He also agreed to get his opioids prescriptions only through their team) 2. Colostomy prolapse (HCC) - ICD9: 569.69, ICD10: K94.09 - Diverticulitis c/b perforation (July 2016) s/p Chad with loop colostomy. - Follow up on [facility] recommendations: 3. Screening for prostate cancer - ICD9: V76.44, ICD10: Z12.5 - PSA/PROSTSPECAG SCRN 4. Need for lipid screening - ICD9: V77.91, ICD10: Z13.220 - LIPID PANEL BASIC 5. Need for hepatitis C screening test - ICD9: V73.89, ICD10: Z11.59 - HEP C AB IA W/CONF SCRN 6. Need for vaccination - ICD9: V05.9, ICD10: Z23 - TDAP VACCINE AGE 7+ IM ( Will be done during next visit ) Follow up plan during next visit: - Follow up [facility] plans regarding the surgery. - Provide TDAP vaccine, review other health maintenance - Follow up Pain management recs. - consult to care coordinators to help patient with medication compliance. - screening for diabetes - request records for the last Colonoscopy. SIGNATURE: Viral Ordonez MD PGY-3 Internal Medicine PAGER: [phone] DATE of SERVICE: April 19, 2017 TIME of SERVICE: 7:58 AM I have reviewed the history and physical obtained and documented by Dr. Ordonez above as well as personally interviewed, examined and reviewed all relevant records, data, labs, and imaging studies. I participated in the nelson components and agree with the assessment and plan as outlined by the resident physician. My own documentation is outlined below, which may augment or clarify information gathered by the resident physician. Briefly, Mr. Knott is a 66-year-old male with a past medical history significant for CAD s/p CABG x3 (FPRY-CMV-pmdgiv, IFG-JTJ-wyvrwz, SGT-GM4-hrskydjh) with his last PCI in 01/2016 ([facility]): GREY to proximal LAD, ischemic systolic congestive heart failure (EF 50%), diverticulitis complicated by a perforation (July 2016) s/p Chad with loop colostomy with chronic pain at the stoma site, on oxycodone and chronic back pain on Gabapentin 600 mg at bedtime who presents for follow-up for stoma prolapse. His main issue is that he needs a revision of the stoma and Chad but had a recent NSTEMI s/p stent which will require DAPT for least 6 months. He is due for some HM labs / vaccines. He needs to establish with pain management - I am not comfortable prescribing any opioids as he had been getting them for multiple sources over the past few months. [place]ARRS website checked and validated. Prescriptions have been INAPPROPRIATELY filled by multiple providers.- 04/19/2017 by Bijan Perez MD He is following with cardiology and [facility]. Bijan Perez M.D., M.A. Associate Staff Department of Internal Medicine Pager: [phone] Referring Provider: NITA CHURCH [[id number]] Allergies As of Date: 04/18/2017 Noted Allergy Reaction ALTASEPTIC 12/17/2016 16 - Unknown CRESTOR (ROSUVASTATIN CALCIUM) 12/17/2016 17 - Myalgia HCTZ (AMILORIDE-HYDROCHLOROTHIAZI*12/17/2016 7 - Swelling RAMIPRIL 12/17/2016 7 - Swelling SIMVASTATIN 12/17/2016 17 - Myalgia VOLTAREN (DICLOFENAC SODIUM) 12/17/2016 16 - Unknown Date Reviewed: 04/18/2017 Reviewed by: Ryan Toth) MITCHELL Mcelroy - Fully Assessed Reason for Visit: Hospital F/U [57] Primary Visit Diagnosis:Chronic low back pain, unspecified back pain laterality, with sciatica presence unspecified [M54.5, G89.29] Other Visit Diagnoses: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] Screening for prostate cancer [Z12.5] Need for lipid screening [Z13.220] Need for hepatitis C screening test [Z11.59] Need for vaccination [Z23] Order(s):cyclobenzaprine (FLEXERIL) 10 mg tabletTake 1 tablet by mouth daily at bedtime.Disp: 90 tabletRfl: 0 gabapentin (NEURONTIN) 300 mg capsuleTake 2 capsules by mouth daily at bedtime for 90 days.Disp: 90 capsuleRfl: 0 metoprolol succinate ER (TOPROL XL) 100 mg [id number] 1 tablet by mouth once daily.Disp: 90 tabletRfl: 4 QUEtiapine (SEROQUEL) 200 mg tabletTake 2 tablets by mouth daily at bedtime.Disp: 60 tabletRfl: 0 LIPID PANEL BASIC [SQLIPB] Order #: [id number] FUTURE PSA/PROSTSPECAG SCRN [SQPSAS1] Order #: [id number] FUTURE HEP C AB IA W/CONF SCRN [SDWUVL0H] Order #: [id number] hydrALAZINE (APRESOLINE) 10 mg tabletTake 1 tablet by mouth three times daily.Disp: 90 tabletRfl: 2 CONSULT TO PAIN MGT ANESTHESIA [19990805] Order #: [id number]: 1 Prescriptions as of 04/18/2017 Sig: CYCLOBENZAPRINE 10 MG TABLET Take 1 tablet by mouth daily * GABAPENTIN 300 MG CAPSULE Take 2 capsules by mouth dominik* METOPROLOL SUCCINATE ER 100 M* Take 1 tablet by mouth once d* QUETIAPINE 200 MG TABLET Take 2 tablets by mouth daily* OXYCODONE-ACETAMINOPHEN 5 MG-* Take 1-2 tablets by mouth antwan* CLOPIDOGREL 75 MG TABLET Take 1 tablet by mouth once d* COMPOUNDED PRESCRIPTION One Piece Ostomy Pouch Item T* COMPOUNDED PRESCRIPTION Paste: Convatec Stomahesive * PRAVASTATIN 40 MG TABLET Take 40 mg by mouth once dominik* MULTIVITAMIN AND MINERALS ORAL Take 1 capsule by mouth. ALBUTEROL SULFATE HFA 90 MCG/* Inhale as instructed. FLUTICASONE 50 MCG/ACTUATION * Use in the nose. NITROGLYCERIN 0.4 MG SUBLINGU* PLACE ONE(1) TABLET UNDER TON* LOSARTAN 100 MG TABLET Take 100 mg by mouth once roddy* ASPIRIN 81 MG CHEWABLE TABLET Take 81 mg by mouth once dominik* AMLODIPINE 10 MG TABLET Take 10 mg by mouth once dominik* FUROSEMIDE 20 MG TABLET Take 40 mg by mouth once dominik* HYDRALAZINE 10 MG TABLET Take 1 tablet by mouth three * COMPOUNDED PRESCRIPTION Adhesive Removers: ConvaTec S* COMPOUNDED PRESCRIPTION Powder: Convatec Stomahesive * COMPOUNDED PRESCRIPTION Skin Barrier: Hollihesive 4x4* Medication notes this encounter COMPOUNDED PRESCRIPTION >> Katharina Rojo MA, MA 04/18/2017 10:03 AM >> KATHARINA ROJO SunApr 18, 2017 10:03 AM NOT USING COMPOUNDED PRESCRIPTION >> Katharina Rojo MA, MA 04/18/2017 10:03 AM >> KATHARINA ROJO SunApr 18, 2017 10:03 AM NOT USING COMPOUNDED PRESCRIPTION >> Katharina Rojo MA, MA 04/18/2017 10:03 AM >> KATHARINA ROJO SunApr 18, 2017 10:03 AM NOT USING IBUPROFEN 600 MG TABLET >> Viral Ordonez MD 04/18/2017 11:29 AM Patient on DAPT Problem List As Of Date 04/18/2017 Noted Resolved 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 Chest pain [R07.9] INVALID FOR* Priority: A More... Hypertensive crisis [I16.9] INVALID FOR* Priority: B More... Healthcare maintenance [Z00.00] INVALID FOR* Priority: M More... Malnutrition of mild degree (HCC) [E44.1] INVALID FOR* Priority: L More... CHF (congestive heart failure) ([facility]) [I50.9] INVALID FOR* Visit Notes: >> Katharina Rojo MA SunApr 18, 2017 10:08 AM Status: Signed Maxx Knott is a 66 year old male here today for visit in Internal Medicine Patient has been identified by name and date of for verification purposes. Allergies have been reviewed and verified. They include the following: Altaseptic; Crestor [Rosuvastatin Calcium]; Hctz [Amiloride-Hydrochlorothiazide]; Ramipril; Simvastatin; Voltaren [Diclofenac Sodium] Health Maintenance has been reviewed and updated. TETANUS HEPATITIS C SCREENING PROSTATE CANCER SCREENING DISCUSSION COLORECTAL CANCER SCREENING,SEE MODIFIER ABDOMINAL AORTIC ANEURYSM SCREENING TOPIC ADULT PREVNAR-13 Pharmacy benefits have been run and correct pharmacy has been verified. Yes Medication - prescribed and OTC reviewed and updated: Yes Refills have been pended for physician review and filing. Yes Patient Accepted refills to be pended. Is the patient active on MyChart Yes PENDING Katharina Rojo MA Prescriptions ordered this encounter Disp Refills Start End CYCLOBENZAPRINE 10 MG TABLET 90 t* 0 04/18/2017 Route: ORAL Sig: Take 1 tablet by mouth daily at bedtime. GABAPENTIN 300 MG CAPSULE 90 c* 0 04/18/2017 07/17/2017 Route: ORAL Sig: Take 2 capsules by mouth daily at bedtime for 90 days. METOPROLOL SUCCINATE ER 100 MG TABLE* 90 t* 4 04/18/2017 Route: ORAL Sig: Take 1 tablet by mouth once daily. QUETIAPINE 200 MG TABLET 60 t* 0 04/18/2017 Route: ORAL Sig: Take 2 tablets by mouth daily at bedtime. HYDRALAZINE 10 MG TABLET 90 t* 2 04/18/2017 07/17/2017 Route: ORAL Sig: Take 1 tablet by mouth three times daily. Medications Discontinued During This Encounter ibuprofen (MOTRIN) 600 mg tablet 06/26/2016 04/18/2017 Class: Historical Med Route: ORAL Sig: Take 600 mg by mouth. Disc: Clinical Decision cyclobenzaprine (FLEXERIL) 10 mg tab* 04/18/2017 Class: Historical Med Route: ORAL Sig: Take 30 mg by mouth. Disc: Reason for discontinue is not on file. gabapentin (NEURONTIN) 300 mg capsule 04/18/2017 Class: Historical Med Route: ORAL Sig: Take 600 mg by mouth daily at bedtime. Disc: Reason for discontinue is not on file. metoprolol succinate ER (TOPROL XL) * 04/18/2017 Class: Historical Med Route: ORAL Sig: Take 100 mg by mouth once daily. Disc: Reason for discontinue is not on file. QUEtiapine (SEROQUEL) 200 mg tablet 04/18/2017 Class: Historical Med Route: ORAL Sig: Take 400 mg by mouth daily at bedtime. Disc: Reason for discontinue is not on file. Disposition: Return in about 5 weeks (around 05/23/2017) for Routine physical. Follow-up and Disposition History Recorded Classic SmartForms filed during this visit: [facility] Vitals Encounter Status:Closed by BIJAN PEREZ MD on 04/19/17 PROGRESS Observed: 04/18/2017 Status: COMPLETED Source: [place] 8:44 AM [facility] [place] REPOSITORY HNO ID: [id number] Author: Niki Monge Service: (none) Author Type: Physician Type: Progress Notes Filed: 05/27/2017 3:55 PM Note Text: [facility] [place] Gladis Vallecillo Department of Cardiovascular Medicine SECTION OF PREVENTIVE CARDIOLOGY OUTPATIENT VISIT DATE April 18, 2017 OUTPATIENT VISIT TYPE CONSULT PRIMARY CARE PHYSICIAN: [facility], DEPARTMENT [address] [place] [address] REFERRING PHYSICIAN: Nita Church MD [address] [facility] [id number] CHIEF COMPLAINT: pre-op clearance HISTORY OF PRESENT ILLNESS: Mr. Knott is a 66 year old male who presents today for pre-op clearance for surgery of ostomy stoma prolapse; no date planned. [facility] hospitalization 04/15-04/17/2017: 66 year old male with a history of CAD s/p CABG x3 (PBMJ-PIW-tpqwil, FCJ-BHE-xtlxpv, DWC-EF1-xtvhmmwe) (2005 at [place]), systolic congestive heart failure, ischemic (EF 50%), Diverticulitis c/b perforation (July 2016) s/p Chad with loop colostomy (with frequent ED visits for prolapsed stoma) who presents with a prolapsed stoma. Colorectal surgery reviewed his case and ultimately decided that he needs to follow up on an outpatient basis for further evaluation. For his chest pain he had cardiac markers followed up that were negative. Cardiology was consulted for pre-op clearance and no further intervention was advised. He was discharged to follow with cards and colorectal surgery on an outpatient basis. Cardiology consult [facility] hospitalization 04/01-04/04/2017-- I have reviewed the documentation obtained and documented by the Resident?and have reviewed and updated the problem list and notes as appropriate. ?I have personally performed a face to face assessment of the patient and have personally participated in the nelson components. I have discussed the case and management of the patient's care with the patient, resident and team. Notes from [facility] confirmed that patient did have a drug-eluting stent to the proximal LAD, along with balloon angioplasty of the first diagonal in January 2017. He was discharged on ticagrelor, however cease this due to an allergic reaction. 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 He has previously been on clopidogrel, without any issues. Given that he has a new drug-eluting stent, he should be on dual antiplatelet therapy. Apart from the initial elevated highly sensitive troponin, he has not had a positive standard troponin or acute ECG changes. He has had chronic abdominal/chest pain throughout admission, which has persisted without remission and is atypical for cardiac pain. No indication for inpatient left heart catheterization. If no plans for impending surgery, would suggest he be commenced on clopidogrel, in addition to aspirin for his new drug-eluting coronary stent. He should follow-up with his usual straightening machine operator at post discharge. Yane Aragon MD PHD Current complaints/concerns: --d/c'ed form hospital yesterday; no symptoms since yesteday --01/2017 chest pain, stoma pain, performed PCI LAD, Dg --d/c'ed on Brilinta, accelerated heartrate sweating; off DAPT ?duration; ; loaded with Plavix 600 mg early 03/2017 --chest pain, constant in past week, r/o'ed for PA; aggravated by heavy lifting, walking long distances --TAPIA walking 1 block --occ LE edema Exercise: no exercise; light housechores, but overall very limited due to stoma prolapse, SOB; prior to 06/2016colostomy, mild-moderate level activity housechores, yardwork PAST CARDIAC HISTORY: see below PAST MEDICAL HISTORY Diagnosis Date - CAD (coronary artery disease) 2005 CAD s/p CABG x3 (PPKT-FSX-rlfpob, JKH-BHM-tjwcxe, XNE-LI3-lfnidrco) (2005 at [place]) - Diverticulitis Perforated Diverticulitis - Pacemaker 02/16/2017 s/p PPM () 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 - Peritonitis ([facility]) PAST SURGICAL HISTORY Procedure Laterality Date - APPENDECTOMY HX - COLON SURGERY HX 07/2016 Chad's - HEART SURGERY HX triple bypass 10 yrs ago SOCIAL HISTORY Social History Substance Use Topics - Smoking status: Current Every Day Smoker Packs/day: 0.50 Types: Cigarettes - Smokeless tobacco: Not on file Comment: trying to quit - Alcohol use No No family history on file. ALLERGIES: ALLERGIES Allergen Reactions - Altaseptic Unknown - Crestor [Rosuvastat* Unknown - Hctz [Amiloride-Hyd* Unknown - Ramipril Unknown - Simvastatin Unknown - Voltaren [Diclofena* Unknown MEDICATIONS: oxyCODONE-acetaminophen (PERCOCET) 5-325 mg tablet Take 1- 2 tablets by mouth every 4 hours as needed for up to 3 days. clopidogrel (PLAVIX) 75 mg tablet Take 1 tablet by mouth once daily. COMPOUNDED PRESCRIPTION Adhesive Removers: ConvaTec Sensi- Care No Sting30/boxICD 10: Prolapsed Stoma K94.09 COMPOUNDED PRESCRIPTION One Piece Ostomy Pouch Item Type: Coloplast Sensura One Piece Non-Sterile with Window 07/05- 1/'' ?5/BoxICD 10: Prolapsed Stoma K94.09 COMPOUNDED PRESCRIPTION Paste: Convatec Stomahesive 1 tubeICD 10: Prolapsed Stoma K 94.09 COMPOUNDED PRESCRIPTION Powder: Convatec Stomahesive 1 bottleICD 10: K 94.09 COMPOUNDED PRESCRIPTION Skin Barrier: Hollihesive 4x4 5/boxICD 10: Prolapsed Stoma K 94.09 acetaminophen (TYLENOL) 325 mg tablet Take 2 tablets by mouth every 6 hours as needed. pravastatin (PRAVACHOL) 40 mg tablet Take 40 mg by mouth once daily. MULTIVIT WITH IRON,MINERALS (MULTIVITAMIN AND MINERALS ORAL) Take 1 capsule by mouth. albuterol HFA (PROVENTIL HFA, VENTOLIN HFA) 90 mcg/actuation inhaler Inhale as instructed. cyclobenzaprine (FLEXERIL) 10 mg tablet Take 30 mg by mouth. fluticasone (FLONASE) 50 mcg/actuation nasal spray Use in the nose. ibuprofen (MOTRIN) 600 mg tablet Take 600 mg by mouth. nitroglycerin sublingual (NITROSTAT) 0.[address] ONE(1) TABLET UNDER TONGUE NEEDED FOR CHEST PAIN. IF NO PAIN RELIEF CALL 911 metoprolol succinate ER (TOPROL XL) 100 mg Tb24 Take 100 mg by mouth once daily. losartan (COZAAR) 100 mg tablet Take 100 mg by mouth once daily. aspirin 81 mg chewable tablet Take 81 mg by mouth once daily. QUEtiapine (SEROQUEL) 200 mg tablet Take 400 mg by mouth daily at bedtime. gabapentin (NEURONTIN) 300 mg capsule Take 300 mg by mouth daily at bedtime. amLODIPine (NORVASC) 10 mg tablet Take 10 mg by mouth once daily. furosemide (LASIX) 20 mg tablet Take 40 mg by mouth once daily as needed. REVIEW OF SYSTEMS: positives appear in bold GENERAL:Negative for malaise, significant weight loss or gain and fever HEENT:Negative for frequent or significant headaches, significant changes in vision or vision problems, significant ear problems or hearing loss, nasal discharge or nose bleeds and sore throat, difficulty swallowing, mouth lesions NECK:Negative for lumps, goiter, pain and significant neck swelling RESPIRATORY: Negative for cough, wheezing and shortness of breath CARDIOVASCULAR: Negative for chest pain, leg swelling and palpitations GASTROINTESTINAL: Negative for abdominal discomfort, blood in stools or black stools and change in bowel habits GENITOURINARY: Negative for dysuria, frequency and incontinence MUSCULOSKELETAL: Negative for joint pain or swelling, back pain, and muscle pain. NEUROLOGIC:Negative for focal numbness or weakness, headaches and dizziness. SKIN:Negative for lesions, rash, and itching. PSYCHIATRIC: Negative for sleep disturbance, mood disorder and recent psychosocial stressors. HEMATOLOGIC/LYMPHATIC/IMMUNOLOGIC:Negative for prolonged bleeding, bruising easily, and swollen nodes. ENDOCRINE: Negative for cold or heat intolerance, polyuria, polydipsia and goiter. I personally interviewed, confirmed and edited the above information if obtained by others. PHYSICAL EXAMINATION: BP 141/72 Pulse 72 Ht 171.5 cm (5' 7.52) Wt 92.1 kg (203 lb) BMI 31.31 kg/m2 Gen: overweight/obese WM, NARD HEENT: PERRL, conj pink, OP benign neck: 2+ carotids, no bruits, JVP 7 chest: CTA B CV: RRR normal S1, S2 abd: soft, NTND, normal BS's ext: tr B LE edema; 2+ DP/PT pulses neuro: alert, oriented X 3; normal gait Component CK CK MB CK MB % MB BRAYAN High Sensitivity Troponin T Latest Ref Rng AND Units 51 - 298 U/L ng/mL 0.0 - 4.0 % <7.7 ng/mL <12 ng/L 0.000 - 0.029 ng/mL 10/01/2016 51 1.2 2.4 03/03/2017 5:10 PM 16 (H) 03/03/2017 6:36 PM 16 (H) 04/01/2017 10:34 AM 61 3.1 53 (H) 0.026 04/01/2017 11:26 AM 55 (H) 04/01/2017 2:20 PM 55 2.7 0.023 04/01/2017 10:44 PM 49 (L) 2.6 0.028 04/02/2017 8:03 AM 0.021 04/02/2017 4:07 PM 36 (L) 2.3 0.023 04/15/2017 6:15 PM 14 (H) <0.010 04/15/2017 7:53 PM 14 (H) 04/16/2017 12:02 AM 39 (L) 1.0 <0.010 04/16/2017 6:46 AM 30 (L) 1.0 <0.010 04/16/2017 12:47 PM 34 (L) 1.2 <0.010 CARDIOVASCULAR MEDICINE TESTING: Electrocardiogram: 04/18/2017 reviewed--NSR 72 iRBBB, inf PA age undet, NS TW change I have personally reviewed the Electrocardiogram. PPM check 04/04/2017-- UNDERLYING RHYTHM: Sinus with 1st degree AV Block BATTERY STATUS: Normal and shows no significant depletion. COUNTERS SINCE 02/16/17: ATRIAL ARRHYTHMIAS: There have been 0 triggered episodes of atrial high rates. VENTRICULAR ARRHYTHMIAS: There have been no ventricular detections since the last evaluation. LEAD MEASUREMENTS: Capture and sensing are appropriate. The pacing outputs maintain safety margin. Review of the lead impedance trends are normal. IMPLANT SITE/ SYMPTOMS: The incision and pocket are painfree (0/10), well healed and without signs of erosion or infection. No arm swelling, syncope, pre-syncope or device related pocket stimulation. OTHER DIAGNOSTICS: V pacing 14%. PROGRAMMING CHANGES MADE TODAY: Lead outputs adjusted. FOLLOW UP: Locally. echo 04/02/2017-- CONCLUSIONS: - Technically difficult exam due to body habitus. - Exam indication: Chest Pain - The left ventricle is mildly dilated. There is mild left ventricular hypertrophy. Left ventricular systolic function is mildly decreased. EF = 50 ? 5% (visual est.) Definity contrast used for endocardial border detection. - The right ventricle is normal in size. Right ventricular systolic function is normal. - The patient has not had a prior CC echocardiographic exam for comparison. ? IMPRESSION: 66 year old male presents on referral from Colorectal Surgery for pre-op clearance for possible repair of prolapsed stoma. History notable for CAD s/p CABG x3V 2005; s/p PCI LAD GREY, POBA Dg 01/2017; LVEF 50%; diverticulitis with perforated colon s/p loop colostomy 07/2016, and frequent ED visits with abdominal pain due to prolapsed stoma. Pt was just discharged from hospital yesterday with plans for additional pre-op evaluation today; pt already seen by Drs. Christian Martinez and Yane Aragon (Cardiology inpatient Consult service) during recent admissions with recommendation to delay elective surgery due to very recent placement of GREY in LAD. PLAN AND RECOMMENDATIONS: 1. OSH records to confirm LAD stent type (drug-eluting, but ?type), other CAD 2. per [facility] Inpatient Cardiology consult service, if surgery can be performed on dual-antiplatelet therapy (ASA + clopidigrel), then he is able to proceed at this time; however, more likely since surgery is elective, it should be delayed until at least 3-6 mos post- PCI (depending on GREY stent type) so that pt may be more safely temporarily held from DAPT Niki Monge MD Department of Cardiovascular Medicine CNOV Observed: 04/18/2017 Status: COMPLETED Source: [place] 8:00 AM [facility] REPOSITORY Office Visit (ABHISHEK Au) MAXX KNOTT ([id number]) 1950 M Date Time Provider Department 04/18/17 8:00 AM NIKI MONGE During your visit today, we recorded the following information about you: Pulse Blood pressure Weight Height 72/minute 141/72 92.1 kg 1.715 m Niki Monge MD 05/27/2017 3:55 PM Signed [facility] [place] Glad[facility] Vallecillo Department of Cardiovascular Medicine SECTION OF PREVENTIVE CARDIOLOGY OUTPATIENT VISIT DATE April 18, 2017 OUTPATIENT VISIT TYPE CONSULT PRIMARY CARE PHYSICIAN: [facility], DEPARTMENT [address] [place] [address] REFERRING PHYSICIAN: Nita Church MD [id number] [facility] [id number] CHIEF COMPLAINT: pre-op clearance HISTORY OF PRESENT ILLNESS: Mr. Knott is a 66 year old male who presents today for pre-op clearance for surgery of ostomy stoma prolapse; no date planned. [facility] hospitalization 04/15-04/17/2017: ANDquot;66 year old male with a history of CAD s/p CABG x3 (BGPL-LQP-phklvk, MCZ-KPF-iubbsk, QDY-XL6-hsqsqdbq) (2005 at [place]), systolic congestive heart failure, ischemic (EF 50%), Diverticulitis c/b perforation (July 2016) s/p Chad with loop colostomy (with frequent ED visits for prolapsed stoma) who presents with a prolapsed stoma. Colorectal surgery reviewed his case and ultimately decided that he needs to follow up on an outpatient basis for further evaluation. For his chest pain he had cardiac markers followed up that were negative. Cardiology was consulted for pre-op clearance and no further intervention was advised. He was discharged to follow with cards and colorectal surgery on an outpatient basis.ANDquot; Cardiology consult [facility] hospitalization 04/01-04/04/2017-- ANDquot;I have reviewed the documentation obtained and documented by the Resident?and have reviewed and updated the problem list and notes as appropriate. ?I have personally performed a face to face assessment of the patient and have personally participated in the nelson components. I have discussed the case and management of the patient's care with the patient, resident and team. Notes from [facility] confirmed that patient did have a drug-eluting stent to the proximal LAD, along with balloon angioplasty of the first diagonal in January 2017. He was discharged on ticagrelor, however cease this due to an allergic reaction. 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 He has previously been on clopidogrel, without any issues. Given that he has a new drug-eluting stent, he should be on dual antiplatelet therapy. Apart from the initial elevated highly sensitive troponin, he has not had a positive standard troponin or acute ECG changes. He has had chronic abdominal/chest pain throughout admission, which has persisted without remission and is atypical for cardiac pain. No indication for inpatient left heart catheterization. If no plans for impending surgery, would suggest he be commenced on clopidogrel, in addition to aspirin for his new drug-eluting coronary stent. He should follow-up with his usual straightening machine operator at post discharge. Yane Aragon MD PHDANDquot; Current complaints/concerns: --d/c'ed form hospital yesterday; no symptoms since yesteday --01/2017 chest pain, stoma pain, performed PCI LAD, Dg --d/c'ed on Brilinta, ANDquot;accelerated heartrateANDquot; ANDquot;sweatingANDquot;; off DAPT ?duration; ; loaded with Plavix 600 mg early 03/2017 --chest pain, constant in past week, r/o'ed for PA; aggravated by heavy lifting, walking ANDquot;long distancesANDquot; --TAPIA walking 1 block --occ LE edema Exercise: no exercise; light housechores, but overall very limited due to stoma prolapse, SOB; prior to 06/2016colostomy, mild-moderate level activity housechores, yardwork PAST CARDIAC HISTORY: see below PAST MEDICAL HISTORY Diagnosis Date - CAD (coronary artery disease) 2005 CAD s/p CABG x3 (ROAA-OHA-zrwnuw, DVI-AOY-dbynwj, ISO-NZ5-jxzewmzz) (2006 at [place]) - Diverticulitis Perforated Diverticulitis - Pacemaker 02/16/2017 s/p PPM () 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 - Peritonitis ([facility]) PAST SURGICAL HISTORY Procedure Laterality Date - APPENDECTOMY HX - COLON SURGERY HX 07/2016 Chad's - HEART SURGERY HX triple bypass 10 yrs ago SOCIAL HISTORY Social History Substance Use Topics - Smoking status: Current Every Day Smoker Packs/day: 0.50 Types: Cigarettes - Smokeless tobacco: Not on file Comment: trying to quit - Alcohol use No No family history on file. ALLERGIES: ALLERGIES Allergen Reactions - Altaseptic Unknown - Crestor [Rosuvastat* Unknown - Hctz [Amiloride-Hyd* Unknown - Ramipril Unknown - Simvastatin Unknown - Voltaren [Diclofena* Unknown MEDICATIONS: oxyCODONE-acetaminophen (PERCOCET) 5-325 mg tablet Take 1- 2 tablets by mouth every 4 hours as needed for up to 3 days. clopidogrel (PLAVIX) 75 mg tablet Take 1 tablet by mouth once daily. COMPOUNDED PRESCRIPTION Adhesive Removers: ConvaTec Sensi- Care No Sting30/boxICD 10: Prolapsed Stoma K94.09 COMPOUNDED PRESCRIPTION One Piece Ostomy Pouch Item Type: Coloplast Sensura One Piece Non-Sterile with Window 3/8-4 1/2'' ?5/BoxICD 10: Prolapsed Stoma K94.09 COMPOUNDED PRESCRIPTION Paste: Convatec Stomahesive 1 tubeICD 10: Prolapsed Stoma K 94.09 COMPOUNDED PRESCRIPTION Powder: Convatec Stomahesive 1 bottleICD 10: K 94.09 COMPOUNDED PRESCRIPTION Skin Barrier: Hollihesive 4x4 5/boxICD 10: Prolapsed Stoma K 94.09 acetaminophen (TYLENOL) 325 mg tablet Take 2 tablets by mouth every 6 hours as needed. pravastatin (PRAVACHOL) 40 mg tablet Take 40 mg by mouth once daily. MULTIVIT WITH IRON,MINERALS (MULTIVITAMIN AND MINERALS ORAL) Take 1 capsule by mouth. albuterol HFA (PROVENTIL HFA, VENTOLIN HFA) 90 mcg/actuation inhaler Inhale as instructed. cyclobenzaprine (FLEXERIL) 10 mg tablet Take 30 mg by mouth. fluticasone (FLONASE) 50 mcg/actuation nasal spray Use in the nose. ibuprofen (MOTRIN) 600 mg tablet Take 600 mg by mouth. nitroglycerin sublingual (NITROSTAT) 0.[address] ONE(1) TABLET UNDER TONGUE NEEDED FOR CHEST PAIN. IF NO PAIN RELIEF CALL 911 metoprolol succinate ER (TOPROL XL) 100 mg Tb24 Take 100 mg by mouth once daily. losartan (COZAAR) 100 mg tablet Take 100 mg by mouth once daily. aspirin 81 mg chewable tablet Take 81 mg by mouth once daily. QUEtiapine (SEROQUEL) 200 mg tablet Take 400 mg by mouth daily at bedtime. gabapentin (NEURONTIN) 300 mg capsule Take 300 mg by mouth daily at bedtime. amLODIPine (NORVASC) 10 mg tablet Take 10 mg by mouth once daily. furosemide (LASIX) 20 mg tablet Take 40 mg by mouth once daily as needed. REVIEW OF SYSTEMS: positives appear in bold GENERAL:Negative for malaise, significant weight loss or gain and fever HEENT:Negative for frequent or significant headaches, significant changes in vision or vision problems, significant ear problems or hearing loss, nasal discharge or nose bleeds and sore throat, difficulty swallowing, mouth lesions NECK:Negative for lumps, goiter, pain and significant neck swelling RESPIRATORY: Negative for cough, wheezing and shortness of breath CARDIOVASCULAR: Negative for chest pain, leg swelling and palpitations GASTROINTESTINAL: Negative for abdominal discomfort, blood in stools or black stools and change in bowel habits GENITOURINARY: Negative for dysuria, frequency and incontinence MUSCULOSKELETAL: Negative for joint pain or swelling, back pain, and muscle pain. NEUROLOGIC:Negative for focal numbness or weakness, headaches and dizziness. SKIN:Negative for lesions, rash, and itching. PSYCHIATRIC: Negative for sleep disturbance, mood disorder and recent psychosocial stressors. HEMATOLOGIC/LYMPHATIC/IMMUNOLOGIC:Negative for prolonged bleeding, bruising easily, and swollen nodes. ENDOCRINE: Negative for cold or heat intolerance, polyuria, polydipsia and goiter. I personally interviewed, confirmed and edited the above information if obtained by others. PHYSICAL EXAMINATION: BP 141/72 Pulse 72 Ht 171.5 cm (5' 7.52ANDquot;) Wt 92.1 kg (203 lb) BMI 31.31 kg/m2 Gen: overweight/obese WM, NARD HEENT: PERRL, conj pink, OP benign neck: 2+ carotids, no bruits, JVP 7 chest: CTA B CV: RRR normal S1, S2 abd: soft, NTND, normal BS's ext: tr B LE edema; 2+ DP/PT pulses neuro: alert, oriented X 3; normal gait Component CK CK MB CK MB % MB BRAYAN High Sensitivity Troponin T Latest Ref Rng ANDamp; Units 51 - 298 U/L ng/mL 0.0 - 4.0 % ANDlt;7.7 ng/mL ANDlt;12 ng/L 0.000 - 0.029 ng/mL 10/01/2016 51 1.2 2.4 03/03/2017 5:10 PM 16 (H) 03/03/2017 6:36 PM 16 (H) 04/01/2017 10:34 AM 61 3.1 53 (H) 0.026 04/01/2017 11:26 AM 55 (H) 04/01/2017 2:20 PM 55 2.7 0.023 04/01/2017 10:44 PM 49 (L) 2.6 0.028 04/02/2017 8:03 AM 0.021 04/02/2017 4:07 PM 36 (L) 2.3 0.023 04/15/2017 6:15 PM 14 (H) ANDlt;0.010 04/15/2017 7:53 PM 14 (H) 04/16/2017 12:02 AM 39 (L) 1.0 ANDlt;0.010 04/16/2017 6:46 AM 30 (L) 1.0 ANDlt;0.010 04/16/2017 12:47 PM 34 (L) 1.2 ANDlt;0.010 CARDIOVASCULAR MEDICINE TESTING: Electrocardiogram: 04/18/2017 reviewed--NSR 72 iRBBB, inf PA age undet, NS TW change I have personally reviewed the Electrocardiogram. PPM check 04/04/2017-- UNDERLYING RHYTHM: Sinus with 1st degree AV Block BATTERY STATUS: Normal and shows no significant depletion. COUNTERS SINCE 02/16/17: ATRIAL ARRHYTHMIAS: There have been 0 triggered episodes of atrial high rates. VENTRICULAR ARRHYTHMIAS: There have been no ventricular detections since the last evaluation. LEAD MEASUREMENTS: Capture and sensing are appropriate. The pacing outputs maintain safety margin. Review of the lead impedance trends are normal. IMPLANT SITE/ SYMPTOMS: The incision and pocket are painfree (0/10), well healed and without signs of erosion or infection. No arm swelling, syncope, pre-syncope or device related pocket stimulation. OTHER DIAGNOSTICS: V pacing 14%. PROGRAMMING CHANGES MADE TODAY: Lead outputs adjusted. FOLLOW UP: Locally. echo 04/02/2017-- CONCLUSIONS: - Technically difficult exam due to body habitus. - Exam indication: Chest Pain - The left ventricle is mildly dilated. There is mild left ventricular hypertrophy. Left ventricular systolic function is mildly decreased. EF = 50 ? 5% (visual est.) Definity contrast used for endocardial border detection. - The right ventricle is normal in size. Right ventricular systolic function is normal. - The patient has not had a prior CC echocardiographic exam for comparison. ? IMPRESSION: 66 year old male presents on referral from Colorectal Surgery for pre-op clearance for possible repair of prolapsed stoma. History notable for CAD s/p CABG x3V 2005; s/p PCI LAD GREY, POBA Dg 01/2017; LVEF 50%; diverticulitis with perforated colon s/p loop colostomy 07/2016, and frequent ED visits with abdominal pain due to prolapsed stoma. Pt was just discharged from hospital yesterday with plans for additional pre-op evaluation today; pt already seen by Drs. Christian Martinez and Yane Aragon (Cardiology inpatient Consult service) during recent admissions with recommendation to delay elective surgery due to very recent placement of GREY in LAD. PLAN AND RECOMMENDATIONS: 1. OSH records to confirm LAD stent type (drug-eluting, but ?type), other CAD 2. per [facility] Inpatient Cardiology consult service, if surgery can be performed on dual-antiplatelet therapy (ASA + clopidigrel), then he is able to proceed at this time; however, more likely since surgery is elective, it should be delayed until at least 3-6 mos post-PCI (depending on GREY stent type) so that pt may be more safely temporarily held from DAPT Niki Monge MD Department of Cardiovascular Medicine Referring Provider: NITA CHURCH [[id number]] Allergies As of Date: 04/18/2017 Noted Allergy Reaction ALTASEPTIC 12/17/2016 16 - Unknown CRESTOR (ROSUVASTATIN CALCIUM) 12/17/2016 17 - Myalgia HCTZ (AMILORIDE-HYDROCHLOROTHIAZI*12/17/2016 7 - Swelling RAMIPRIL 12/17/2016 7 - Swelling SIMVASTATIN 12/17/2016 17 - Myalgia VOLTAREN (DICLOFENAC SODIUM) 12/17/2016 16 - Unknown Date Reviewed: 04/18/2017 Reviewed by: Ryan Toth) MITCHELL Mcelroy - Fully Assessed Reason for Visit: Hospital discharge [Other] Chest Pain [21] pre op clearance [Other] Cmt: colostomy Reason For Visit History Recorded Primary Visit Diagnosis:Pre-operative cardiovascular examination [Z01.810] Other Visit Diagnoses: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] Coronary artery disease involving [place] coronary artery of [place] heart, angina presence unspecified [I25.10] Essential hypertension [I10] S/P PTCA (percutaneous transluminal coronary angioplasty) [Z98.61] Prescriptions as of 04/18/2017 Sig: OXYCODONE-ACETAMINOPHEN 5 MG-* Take 1-2 tablets by mouth antwan* CLOPIDOGREL 75 MG TABLET Take 1 tablet by mouth once d* COMPOUNDED PRESCRIPTION Adhesive Removers: ConvaTec S* COMPOUNDED PRESCRIPTION One Piece Ostomy Pouch Item T* COMPOUNDED PRESCRIPTION Paste: Convatec Stomahesive * COMPOUNDED PRESCRIPTION Powder: Convatec Stomahesive * COMPOUNDED PRESCRIPTION Skin Barrier: Hollihesive 4x4* MULTIVITAMIN AND MINERALS ORAL Take 1 capsule by mouth. X PRAVASTATIN 40 MG TABLET Take 40 mg by mouth once dominik* ALBUTEROL SULFATE HFA 90 MCG/* Inhale as instructed. FLUTICASONE 50 MCG/ACTUATION * Use in the nose. NITROGLYCERIN 0.4 MG SUBLINGU* PLACE ONE(1) TABLET UNDER TON* X CYCLOBENZAPRINE 10 MG TABLET Take 30 mg by mouth. X IBUPROFEN 600 MG TABLET Take 600 mg by mouth. LOSARTAN 100 MG TABLET Take 100 mg by mouth once roddy* ASPIRIN 81 MG CHEWABLE TABLET Take 81 mg by mouth once dominik* FUROSEMIDE 20 MG TABLET Take 40 mg by mouth once dominik* X METOPROLOL SUCCINATE ER 100 M* Take 100 mg by mouth once roddy* X QUETIAPINE 200 MG TABLET Take 400 mg by mouth daily at* X GABAPENTIN 300 MG CAPSULE Take 600 mg by mouth daily at* X AMLODIPINE 10 MG TABLET Take 10 mg by mouth once dominik* Problem List As Of Date 04/18/2017 Noted Resolved Colostomy prolapse ([facility]) [K94.09] INVALID FOR* Priority: Very Severe More... Chest pain [R07.9] INVALID FOR* Priority: A More... Hypertensive crisis [I16.9] INVALID FOR* Priority: B More... Healthcare maintenance [Z00.00] INVALID FOR* Priority: M More... Malnutrition of mild degree ([facility]) [E44.1] INVALID FOR* Priority: L More... CHF (congestive heart failure) ([facility]) [I50.9] INVALID FOR* Medications Discontinued During This Encounter acetaminophen (TYLENOL) 325 mg tablet 0 04/03/2017 04/18/2017 Class: OTC Route: ORAL Sig: Take 2 tablets by mouth every 6 hours as needed. Disc: Discontinued by Patient Classic SmartForms filed during this visit: Extended Vitals Encounter Status:Closed by NIKI MONGE MD on 05/27/17 CNDS Observed: 04/17/2017 Status: COMPLETED Source: [place] 4:05 PM [facility] REPOSITORY HNO ID: [id number] Author: Meghan Ibrahim MD Service: General Internal Medicine Author Type: Physician Type: Discharge Summaries Filed: 04/17/2017 4:30 PM Note Text: DISCHARGE SUMMARY PATIENT NAME: Maxx Knott ADMISSION DATE: 04/15/2017 DISCHARGE DATE: 04/17/2017 Attending Physician: No att. providers found Reason for Hospitalization: Abdominal pain Operations During Hospitalization: None Procedures During Hospitalization: No procedures performed Hospital Course: 66 year old male with a history of CAD s/p CABG x3 (GSLD-CAA-yolzwr, NHW-NYF-hxytoz, FXN-NO4-oyhodvqw) (2005 at [place]), systolic congestive heart failure, ischemic (EF 50%), Diverticulitis c/b perforation (July 2016) s/p Chad with loop colostomy (with frequent ED visits for prolapsed stoma) who presents with a prolapsed stoma. Colorectal surgery reviewed his case and ultimately decided that he needs to follow up on an outpatient basis for further evaluation. For his chest pain he had cardiac markers followed up that were negative. Cardiology was consulted for pre-op clearance and no further intervention was advised. He was discharged to follow with cards and colorectal surgery on an outpatient basis. Labs and Procedures Pending at Discharge: No pending results. Consulting Teams During Hospitalization: Cardiology, [facility] Patient Condition @ Discharge: Stable Discharge Disposition: Home/Self Care General: ?Alert and oriented, no distress Heart: ?normal S1 and S2, no murmurs, rubs, or gallops Lungs: Clear to auscultation bilaterally Abdomen: Soft, mild abdominal tenderness, no rigidity, prolapsed bowel seen through stoma w/ surrounding tenderness Extremities: ?no edema/deformities Neuro - AMEZQUITA spontaneously Information Provided to Patient: To follow up with his appts as OP Discharge Medications: Discharge Medication List as of 04/17/2017 3:31 PM START taking these medications oxyCODONE-acetaminophen (PERCOCET) 5-325 mg tablet Take 1-2 tablets by mouth every 4 hours as needed for up to 3 days. Print RX, Disp-10 tablet, R-0 Dx: 1. Colostomy prolapse (HCC) CONTINUE these medications which have NOT CHANGED clopidogrel (PLAVIX) 75 mg tablet Take 1 tablet by mouth once daily. Print RX, Disp-30 tablet, R-0 !! COMPOUNDED PRESCRIPTION Adhesive Removers: [facility] S[facility]Care No Sting 30/box ICD 10: Prolapsed Stoma K94.09 Print RX, Disp-1 Box, R-0 !! COMPOUNDED PRESCRIPTION One Piece Ostomy Pouch Item Type: Coloplast Sensura One Piece Non-Sterile with Window 3/8-4 1/2'' ?5/Box ICD 10: Prolapsed Stoma K94.09 Print RX, Disp-1 Box, R-0 !! COMPOUNDED PRESCRIPTION Paste: [facility] St[facility]ive 1 tube ICD 10: Prolapsed Stoma K 94.09 Print RX, Disp-1 Tube, R-0 !! COMPOUNDED PRESCRIPTION Powder: Convatec Stomahesive 1 bottle ICD 10: K 94.09 Print RX, Disp-1 Bottle, R-0 !! COMPOUNDED PRESCRIPTION Skin Barrier: Hollihesive 4x4 5/box ICD 10: Prolapsed Stoma K 94.09 Print RX, Disp-1 Box, R-0 acetaminophen (TYLENOL) 325 mg tablet Take 2 tablets by mouth every 6 hours as needed. OTC, R-0 pravastatin (PRAVACHOL) 40 mg tablet Take 40 mg by mouth once daily. Historical Med MULTIVIT WITH IRON,MINERALS (MULTIVITAMIN AND MINERALS ORAL) Take 1 capsule by mouth. Historical Med albuterol HFA (PROVENTIL HFA, VENTOLIN HFA) 90 mcg/actuation inhaler Inhale as instructed. Historical Med cyclobenzaprine (FLEXERIL) 10 mg tablet Take 30 mg by mouth. Historical Med fluticasone (FLONASE) 50 mcg/actuation nasal spray Use in the nose. Historical Med ibuprofen (MOTRIN) 600 mg tablet Take 600 mg by mouth. Historical Med nitroglycerin sublingual (NITROSTAT) 0.[address] ONE(1) TABLET UNDER TONGUE NEEDED FOR CHEST PAIN. IF NO PAIN RELIEF CALL 911 Print RX, Disp-25 tablet, R-0 metoprolol succinate ER (TOPROL XL) 100 mg Tb24 Take 100 mg by mouth once daily. Historical Med losartan (COZAAR) 100 mg tablet Take 100 mg by mouth once daily. Historical Med aspirin 81 mg chewable tablet Take 81 mg by mouth once daily. Historical Med QUEtiapine (SEROQUEL) 200 mg tablet Take 400 mg by mouth daily at bedtime. Historical Med gabapentin (NEURONTIN) 300 mg capsule Take 300 mg by mouth daily at bedtime. Historical Med amLODIPine (NORVASC) 10 mg tablet Take 10 mg by mouth once daily. Historical Med furosemide (LASIX) 20 mg tablet Take 40 mg by mouth once daily as needed. Historical Med !! - Potential duplicate medications found. Please discuss with provider. Future Appointments: Follow Up with PCP: [facility] Future Appointments Date Time Provider Department Center 04/18/2017 7:30 AM [id number] MAIN [id number] CARD J BLD 04/18/2017 8:00 AM Niki Monge CARD P CARD J BLD 04/18/2017 10:55 AM Viral (Res) Ordonez INTMMN INTM G Bldg 04/18/2017 12:40 PM I Rios Yoo CORSMFemi CORS A DG 04/18/2017 2:00 PM Stoma Therapy CORSMN CORS A [facility] TIME OF CARE: Discharge Management: I personally spent greater than 30 minutes involved in the discharge management of this patient. SIGNATURE: Meghan Ibrahim MD PAGER: [phone] DATE: April 17, 2017 TIME: 4:28 PM NUTRITION Observed: 04/17/2017 Status: COMPLETED Source: [place] 2:31 PM [facility] REPOSITORY HNO ID: [id number] Author: Lynn Dumas Service: Nutrition Therapy Author Type: Registered Dietitian Type: Nutrition Filed: 04/17/2017 2:42 PM Note Text: NUTRITION THERAPY SCREENING NOTE SERVICE DATE: 04/17/2017 SERVICE TIME: 2:31 PM NUTRITION CARE PLAN Patient's weight is stable and nutritional intake is adequate. Patient is not at risk for malnutrition at this time. Intervention: Meals and Snacks - Regular diet as tolerated Initial/Brief Nutrition Education - Eating Right and Avoiding Dehydration after GI surgery diet education if pt to have colostomy reversal this admission Discharge Nutrition Recommendations: Diet: GI soft diet if needed Supplements: High protein low sugar supplement 1-2 x per day as needed for surgical healing if needed Education: Eating Right and Avoiding Dehydration after GI surgery diet education if needed Present Diet Order: Gastrointestinal GISoft Pt reports decreased intakes since Hartmanns procedure both intentionally and unintentionally. Pt states he has been reducing portion sizes at home also at the same time he has had decreased intakes d/t prolapse, abd pain and nausea. It was noticed on last admission that pt was ordering multiple trays of food and continually asking for juices. Pt reports this admission he has had no change in appetite since last admission Admission Weight: 90.7 kg (200 lb) Current Weight: 90.7 kg (200 lb) Body mass index is 30.41 kg/(m2). IBW: 154# +/- 10% UBW: 250# per pt (per RD from [facility] wt 220# on 08/2016) and 230# approx 1 year ago Weight has decreased by 7.8 kg over 8 months representing 7.8 % weight change (not significant). MNT Billing Type: Initial Assess/15 min 2 units SIGNATURE: Lynn Dumas, MS, RD, LD PATIENT NAME: Maxx Knott DATE: April 17, 2017 TIME: 2:31 PM PAGER: [phone] CASE MANAGEM Observed: 04/17/2017 Status: COMPLETED Source: [place] 11:33 AM [facility] REPOSITORY HNO ID: [id number] Author: Marlen Faith (Asst) Service: Care Management Author Type: Resource Center Tool Grinder Operator Surface Type: Care Mgt Progress Note Filed: 04/17/2017 11:34 AM Note Text: CARE MANAGEMENT PROGRESS NOTE SERVICE DATE: 04/17/2017 SERVICE TIME: 11:04 LOS: 2 days IM letter given to patient on 04/17/17. SIGNATURE: Asst Nasima PATIENT NAME: Maxx Knott DATE: April 17, 2017 TIME: 11:33 AM PAGER/CONTACT #: [phone] PROGRESS Observed: 04/16/2017 Status: COMPLETED Source: [place] 3:08 PM [facility] REPOSITORY HNO ID: [id number] Author: Meghan Ibrahim MD Service: General Internal Medicine Author Type: Physician Type: Progress Notes Filed: 04/16/2017 3:12 PM Note Text: DEPARTMENT OF HOSPITAL MEDICINE PROGRESS NOTE SERVICE DATE: 04/16/2017 SERVICE TIME: 3:08 PM Hospital Medicine/Primary Attending: Meghan Ibrahim MD FOR COVERAGE PLEASE SEE BELOW: Days: [phone] Please page me for patient issues. Nights: [phone] For patients on H80/81, G80/81, please page GIM team pager [phone] For patients on any other floor, please page GIM team pager [phone] SUBJECTIVE INTERVAL HPI: HENRY overnight, VSS Cardiology team consulted for pre-op clearance Troponin -ve x3 MEDICATIONS: Reviewed OBJECTIVE PHYSICAL EXAM: BP 139/60 Pulse 60 Temp (Src) 98.3 (Oral) Resp 16 Ht 5' 8 (1.73m) Wt 200 lb (90.7kg) SpO2 95% BMI 30.42 kg/(m2). General: Alert and oriented, no distress Heart: normal S1 and S2, no murmurs, rubs, or gallops Lungs: Clear to auscultation bilaterally Abdomen: Soft, mild abdominal tenderness, no rigidity, prolapsed bowel seen through stoma w/ surrounding tenderness Extremities: no edema/deformities Neuro - AMEZQUITA spontaneously DATA: Diagnostic tests reviewed for today's visit: Most recent labs and imaging results. 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 - may get colostomy reversion DURING THIS ADMISSION. - NPO per [facility] - Likely reversal os stoma on sunday - Cardiology clearance in am as requested by [facility]. ? Chest pain POA atypical chest discomfort , 5/10 more on the left side. Exacerbated by deep breath. - Initial Ekg - NSR, non specific t wave changes unchanged from nov, incompleteRBBB - HStrop - 14 mildly elevated, tropnin t - negative - 2Decho done recently EF - 50% Plan - continue with aspirin and plavix as patient is s/p stenting in January this year. - continue pravastatin, cozaar, and meoprolol - will do serial cardiac enzymes and check repeat EKG In am. ? CHF (congestive heart failure) (HCC) POA: No s/p pacemaker implantation in January. EF - 12/4 - 50% WITH grade 1 dialstolic dysfucntion - Currently compensated with clear CXR. continue with cozaar and metoprolol. - Lasix as needed for fluid overload. ? ? H/o Depression - continue with seroquel ? Chronic back pain - continue with gabapentin and percocet as needed. ? SIGNATURE: Meghan Ibrahim MD PATIENT NAME: Maxx Knott DATE: April 16, 2017 TIME: 3:08 PM PAGER/CONTACT #: [phone] PROGRESS Observed: 04/16/2017 Status: COMPLETED Source: [place] 2:09 PM [facility] REPOSITORY HNO ID: [id number] Author: Lemuel Ewing (Twin) Chinmay Service: Colorectal Author Type: Resident Type: Progress Notes Filed: 04/16/2017 6:05 PM Note Text: COLORECTAL SURGERY PROGRESS NOTE Name: Maxx Knott Date: April 16, 2017 Overnight: No acute events, no fever no chills no NV no SOB no CP no SCHWARZ Pain control: well Nausea: None Diet: GIS No Continued Need For Ramirez Catheterization PHYSICAL EXAM: BP 139/60 Pulse 60 Temp 36.8 ?C (98.3 ?F) (Oral) Resp 16 Ht 172.7 cm (5' 8) Wt 90.7 kg (200 lb) SpO2 95% BMI 30.41 kg/m2 Gen: Alert, NAD, awake Resp: no resp distress Abdomen: Soft, nondistended, appropriately tender., Ostomy viable and functional ASSESSMENT and PLAN of Care: Maxx Knott is a 66 year old male who is s/p diverticulitis and loop colostomy for diverticulitis, he has presented to the emergency room with prolapse of his stoma, and he has never followed up in the outpatient setting for an operation. We will need his outside records and will need to be medically optimized for surgery. He is in no emergency and can follow up in clinic for closure. -- no urgent surgical intervention -- GIS diet -- follow up in clinic -- discussed with Dr Yoo SIGNATURE: Lemuel Moy MD April 16, 2017 2:09 PM CONSULT Observed: 04/16/2017 Status: COMPLETED Source: [place] 1:45 PM [facility] REPOSITORY HNO ID: [id number] Author: Christian Martinez MD Service: Cardiovascular Medicine Author Type: Physician Type: Consults Filed: 04/17/2017 6:09 AM Note Text: CONSULT: CARDIOLOGY SERVICE SERVICE DATE: 04/16/2017 SERVICE TIME: 1:46 PM CONSULTING PHYSICIAN: Christian Martinez MD [facility] ATTENDING: Meghan Ibrahim MD REASON FOR CONSULT: Pre-Op Clearance SUBJECTIVE CHIEF COMPLAINT: 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] HISTORY OF PRESENT ILLNESS: Mr. Knott is a 66 year old male with PMH of CAD s/p CABG x3 in 2005, CHF (EF 50%), diverticulitis c/b perforation (July 2016) s/p Chad with loop colostomy who presents with a prolapsed stoma and is scheduled for a ostomy reversal on Sunday. We are consulted for pre-op clearance. Patient had a LHC in 11/2015 revealed occluded vein graft to LCx s/p stenting. Had a pharm SPECT stress on 06/08/16 showing no induced ischemia and fixed defect involving the majority of the inferior wall. He then had a GREY to the proximal LAD, along with balloon angioplasty of the first diagonal in January 2017. Patient underwent dual chamber pacemaker implantation on 02/16/2017 for intermittent second degree AV block with symptomatic bradycardia. Was discharged on aspirin and ticagrelor although the ticagrelor was stopped d/t an allergic reaction. Was discharged on his last admission (04/04) on aspirin and plavix according to cardiology recommendations. Although patient states he never filled his prescription for plavix. Last ECHO on 04/02 with an EF of 50%, mild LVH, and a mildly hypokinetic inferior wall and basal inferoseptal segment. Upon presentation to the ED was experiencing mid sternal chest pain. EKG was NSR with RSR' in V1 suggestive of RBBB. Troponin has been negative x 3 and high sensitivity troponin has been slightly elevated x 2 although is lower compared to his value on 04/01. Patient states he has minimal chest pain that improved since yesterday. Denies SOB. States he is not able to walk 2 flights of stairs without becoming SOB. PAST MEDICAL HISTORY Diagnosis Date - Diverticulitis Perforated Diverticulitis - Peritonitis (HCC) PAST SURGICAL HISTORY Procedure Laterality Date - APPENDECTOMY HX - COLON SURGERY HX 07/2016 Chad's - HEART SURGERY HX triple bypass 10 yrs ago No family history on file. Social History Substance Use Topics - Smoking status: Current Every Day Smoker Packs/day: 0.50 Types: Cigarettes - Smokeless tobacco: Not on file Comment: trying to quit - Alcohol use No Prior to Admission Medications Prescriptions Last Dose Informant Patient Reported? Taking? COMPOUNDED PRESCRIPTION No No Sig: Adhesive Removers: ConvaTec Sensi-Care No Sting 30/box ICD 10: Prolapsed Stoma K94.09 COMPOUNDED PRESCRIPTION No No Sig: One Piece Ostomy Pouch Item Type: Coloplast Sensura One Piece Non-Sterile with Window 3/8-4 1/2'' ?5/Box ICD 10: Prolapsed Stoma K94.09 COMPOUNDED PRESCRIPTION No No Sig: Paste: Convatec Stomahesive 1 tube ICD 10: Prolapsed Stoma K 94.09 COMPOUNDED PRESCRIPTION No No Sig: Powder: Convatec Stomahesive 1 bottle ICD 10: K 94.09 COMPOUNDED PRESCRIPTION No No Sig: Skin Barrier: Hollihesive 4x4 5/box ICD 10: Prolapsed Stoma K 94.09 MULTIVIT WITH IRON,MINERALS (MULTIVITAMIN AND MINERALS ORAL) Yes No Sig: Take 1 capsule by mouth. QUEtiapine (SEROQUEL) 200 mg tablet Yes No Sig: Take 400 mg by mouth daily at bedtime. acetaminophen (TYLENOL) 325 mg tablet No No Sig: Take 2 tablets by mouth every 6 hours as needed. albuterol HFA (PROVENTIL HFA, VENTOLIN HFA) 90 mcg/actuation inhaler Yes No Sig: Inhale as instructed. amLODIPine (NORVASC) 10 mg tablet Yes No Sig: Take 10 mg by mouth once daily. aspirin 81 mg chewable tablet Yes No Sig: Take 81 mg by mouth once daily. clopidogrel (PLAVIX) 75 mg tablet No No Sig: Take 1 tablet by mouth once daily. cyclobenzaprine (FLEXERIL) 10 mg tablet Yes No Sig: Take 30 mg by mouth. fluticasone (FLONASE) 50 mcg/actuation nasal spray Yes No Sig: Use in the nose. furosemide (LASIX) 20 mg tablet Yes No Sig: Take 40 mg by mouth once daily as needed. gabapentin (NEURONTIN) 300 mg capsule Yes No Sig: Take 300 mg by mouth daily at bedtime. ibuprofen (MOTRIN) 600 mg tablet Yes No Sig: Take 600 mg by mouth. losartan (COZAAR) 100 mg tablet Yes No Sig: Take 100 mg by mouth once daily. metoprolol succinate ER (TOPROL XL) 100 mg Tb24 Yes No Sig: Take 100 mg by mouth once daily. nitroglycerin sublingual (NITROSTAT) 0.4 mg SL tablet No No Sig: PLACE ONE(1) TABLET UNDER TONGUE NEEDED FOR CHEST PAIN. IF NO PAIN RELIEF CALL 911 pravastatin (PRAVACHOL) 40 mg tablet Yes No Sig: Take 40 mg by mouth once daily. Facility-Administered Medications: None Current hospital medications: acetaminophen 650 mg tab(s) (TYLENOL) 650 mg ORAL q 6 H PRN docusate sodium 100 mg cap(s) (COLACE) 100 mg ORAL BID PRN magnesium hydroxide 400 mg/5 mL 30 mL (MOM) 30 mL ORAL BID PRN ondansetron (PF) 4 mg injection (ZOFRAN) 4 mg INTRAVENOUS q 6 H PRN heparin 5,000 Units injection 5,000 Units SUBCUTANEOUS q 12 H amLODIPine 10 mg tab(s) (NORVASC) 10 mg ORAL DAILY aspirin 81 mg chewable tab(s) 81 mg ORAL DAILY clopidogrel 75 mg tab(s) (PLAVIX) 75 mg ORAL DAILY cyclobenzaprine 10 mg tab(s) (FLEXERIL) 10 mg ORAL BID PRN gabapentin 300 mg cap(s) (NEURONTIN) 300 mg ORAL AT BEDTIME losartan 100 mg tab(s) (COZAAR) 100 mg ORAL DAILY metoprolol succinate ER 100 mg tab(s) (TOPROL XL) 100 mg ORAL DAILY nitroglycerin sublingual 0.4 mg tab(s) (NITROQUICK) 0.4 mg SUBLINGUAL PRN pravastatin 40 mg tab(s) (PRAVACHOL) 40 mg ORAL DAILY QUEtiapine 400 mg tab(s) (SEROquel) 400 mg ORAL AT BEDTIME dextrose 5% in NaCl 0.9% iv infusion 50 mL/hr INTRAVENOUS CONTINUOUS oxyCODONE-acetaminophen 5-325 mg 1-2 tablet (PERCOCET) 1-2 tablet ORAL q 4 H PRN furosemide 40 mg tab(s) (LASIX) 40 mg ORAL DAILY PRN ALLERGIES Allergen Reactions - Altaseptic Unknown - Crestor [Rosuvastat* Unknown - Hctz [Amiloride-Hyd* Unknown - Ramipril Unknown - Simvastatin Unknown - Voltaren [Diclofena* Unknown CARDIAC STATUS: Chest Pain: Pain quality: dull Location: mid sternal Radiating to: non radiating Associate Symptoms: none ; Precipitating factors: none Duration: 2 days Frequency: comes and goes Dyspnea: Negative Ankle Edema: Negative Arrhythmia: Negative, Patient denies palpitations, lightheadedness, dizziness, syncope or near syncope. Functional Capacity: Average Activity includes Light activity REVIEW OF SYSTEMS: The following systems were reviewed with the patient, and are unremarkable other than as described below. SYSTEMIC: No fever, chills, or change in weight or appetite HEENT: No recent change in vision or hearing. CARDIOVASCULAR: No murmur, gallop. Denies chest pain or palpitations. GI: No recent nausea, vomiting or diarrhea. : No recent hematuria or dysuria. SKIN: No recent itching or eruption. PSYCH: No recent active anxiety or depression. HEMATOLOGY/ONCOLOGY: No recent diagnosis of bleeding or cancer. ENDOCRINE: No recent polyuria or heat intolerance. NEURO: No recent TIA, stroke or seizures. RHEUMATOLOGY: No recent active connective tissue disease. OBJECTIVE PHYSICAL EXAM: Pleasant, comfortable, not in acute distress. Awake, alert, oriented times 3. Moves all extremities. SKIN: No rash or lumps. HEENT: Normocephalic, face symmetrical. NECK: Supple, no JVD, no carotid bruit, no thyromegaly. LUNGS: Clear to auscultation bilaterally. CARDIAC: PMI present, RRR, S1 and S2, no S3 or S4, no additional heart sounds or murmurs. ABDOMEN: Soft, nontender EXTREMITIES: No edema. PULSES: Peripheral pulses present. Body mass index is 30.41 kg/(m2). O2 Therapy: Room Air No Data Recorded Patient Vitals for the past 48 hrs: BP Temp Temp src Pulse Resp SpO2 Height Weight 04/16/17 1100 139/60 36.8 ?C (98.3 ?F) Oral 60 16 95 % - - 04/16/17 0700 122/64 36.3 ?C (97.4 ?F) Oral 60 16 96 % - - 04/16/17 0300 130/60 36.3 ?C (97.3 ?F) Oral 60 16 96 % - - 04/16/17 0100 158/73 - - - - - - - 04/15/17 2300 165/71 36.8 ?C (98.2 ?F) Oral (!) 58 16 96 % - - 04/15/17 2147 186/75 36.9 ?C (98.4 ?F) Oral 64 18 98 % - - 04/15/17 2124 170/73 36.7 ?C (98 ?F) Oral 61 18 96 % - - 04/15/17 1940 147/65 - - 60 20 96 % - - 04/15/17 1736 188/83 - - 66 22 97 % - - 04/15/17 1638 166/69 36.5 ?C (97.7 ?F) Oral 79 22 98 % 172.7 cm (5' 8) 90.7 kg (200 lb) DATA: Diagnostic tests reviewed for today's visit: Most recent labs and imaging results. Most recent EKG Past 72 Hour Labs: Recent Labs 04/16/17 0648 04/16/17 0646 04/15/17 1815 CK -- 30* < > -- TROPT -- <0.010 < > <0.010 WBC -- 10.13 < > 9.78 RBC -- 4.19* < > 4.14* HB -- 13.3 < > 13.1 HCT -- 39.5 < > 37.6* MCV -- 94.3 < > 90.8 MCH -- 31.7 < > 31.6 MCHC -- 33.7 < > 34.8 RDWCV -- 14.2 < > 13.8 PLT -- 293 < > 321 MPV -- 10.3 < > 10.4 NEUTP -- 68.5 < > 79.0 LYMPHP -- 20.4 < > 14.3 MONOP -- 7.4 < > 5.4 EODINP -- 3.2 < > 1.0 BASOP -- 0.5 < > 0.3 ABSNEUT -- 6.94 < > 7.72* ABSMONO -- 0.75 < > 0.53 ABSEOSIN -- 0.32 < > 0.10 ABSBASO -- 0.05 < > 0.03 GLUC -- 108* < > 92 BUN -- 12 < > 13 CREAT -- 0.88 < > 0.90 NA -- 143 < > 140 K -- 3.4* < > 3.4* CHLOR -- 105 < > 102 CO2 -- 28 < > 24 TPROT -- -- -- 7.0 ALB -- -- -- 4.0 CA -- 9.0 < > 9.2 ALKPHOS -- -- -- 71 TBILI -- -- -- 0.3 AST -- -- -- 13* ALT -- -- -- 17 PTSEC 11.4 -- -- -- APTT 26.7 -- -- -- INR 1.1 -- -- -- < > = values in this interval not displayed. Last Lab Drawn: Triglyceride 100 10/02/2016 HDL Cholesterol 37 10/02/2016 LDL Calculated 125 10/02/2016 Cholesterol 182 10/02/2016 Prior Cardiac Workup: 04/02 ECHO: - The left ventricle is mildly dilated. There is mild left ventricular hypertrophy. Left ventricular systolic function is mildly decreased. EF = 50 ? 5% (visual est.) Definity contrast used for endocardial border detection. - The right ventricle is normal in size. Right ventricular systolic function is normal. IMPRESSION/RECOMMENDATIONS 66 year old male with PMH of CAD s/p CABG x3 in 2005, GREY to the proximal LAD along with balloon angioplasty of the first diagonal in 01/2017, second degree AV block s/p PPM 01/2017, CHF (EF 50%), and diverticulitis c/b perforation (July 2016) s/p Chad with loop colostomy who presents with a prolapsed stoma and is scheduled for a ostomy reversal on Sunday. We are consulted for pre-op clearance. - atypical chest pain with negative Lemuel and EKG with no ischemic changes - RCRI is 3 giving the patient > 11% chance for a ruth-operative cardiac event - intermediate risk surgery in a high risk patient - if willing to operate on plavix this would be ideal has there is a risk for stent thrombosis. Otherwise restart plavix once hemostasis is achieved - continue statin and beta kyra. Hold losartan the day prior to surgery - no further testing is necessary, patient optimized for surgery SIGNATURE: Michael Vega DO PATIENT NAME: Maxx Knott DATE: April 16, 2017 TIME: 1:46 PM PAGER/CONTACT #: [phone] [facility] STAFF PHYSICIAN NOTE OF PERSONAL INVOLVEMENT IN CARE IMPRESSION: Patient is a 66 year old male seen preop in setting of prior CABG and recent GREY PLAN: safest from cardiac standpoint is to continue asa and plavix; if not possible hold plavix and restart w 600 mg load as soon as comfortable w hemostasis (see above) I have reviewed the documentation obtained and documented by the Resident and have reviewed and updated the problem list as appropriate. I have personally performed a face to face assessment of the patient and have personally participated in the nelson components. I have discussed the case and management of the patient's care. STAFF PHYSICIAN: Christian Martinez MD DATE OF SERVICE: April 17, 2017 TIME OF SERVICE: 6:07 AM PT ED Observed: 04/16/2017 Status: COMPLETED Source: [place] 1:01 PM [facility] REPOSITORY HNO ID: [id number] Author: Cy Provider Service: (none) Author Type: Physician Type: Patient Education Filed: 04/16/2017 1:01 PM Note Text: [facility] Patient Education Report --------- Name: MAXX KNOTT Date: 04/16/2017 Time: 1:01 PM Patient Ordered Video: Inpatient Falls from [id number] via phone number [phone] at 1:01 PM CK, TOTAL AND CKMB Collected: 04/16/2017 Status: F Source: [place] 12:47 PM [facility] REPOSITORY TYPE CODE TESTS RESULT OUT OF RANGE REFERENCE UNITS LAB CK 51-298 U/L Low CK 34 Result Comment: Please note the updated, gender-specific reference range for this test (effective 04/13/2016). LAB MB <7.7 ng/mL MB 1.2 Result Comment: Please note the updated, gender-specific reference range for this test (effective 04/14/2016). LAB CKMBRI 0.0-4.0 % CK MB % not reported CK MB % with CK <100 U/L. Performed By: #### CKCKMB, BRAYAN #### [facility] [employer] [address] [place], [place] [address] TROPONIN T Collected: 04/16/2017 Status: F Source: [place] 12:47 [facility] REPOSITORY TYPE CODE TESTS RESULT OUT OF REFERENCE UNITS RANGE LAB TROPT 0.000-0.029 ng/mL Troponin T <0.010 Performed By: #### CKCKMB, BRAYAN #### [facility] [employer] [address] [place], [place] [address] CASE MGT INIT Observed: 04/16/2017 Status: COMPLETED Source: [place] 11:19 AM [facility] REPOSITORY HNO ID: [id number] Author: Lilli (Rn) Alana Betancourt RN Service: Care Management Author Type: Registered Nurse Type: Care Mgt Initial Assessment Filed: 04/16/2017 11:25 AM Note Text: CARE MANAGEMENT: ASSESSMENT AND DISCHARGE PLAN SERVICE DATE: 04/16/2017 SERVICE TIME: 11:20 AM PRIMARY CARE PHYSICIAN: [facility] ADMISSION STATUS: Inpatient Patient admitted with COLOSTOMY PROLAPSE CM met with patient, Introduced self and CM role. Patient is retired, alert and oriented, lives at home with his brother. Plan to return home upon discharge Discharge disposition to be determined. CM will continue to monitor. 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 Yes Patient's transition needs and plan for meeting these needs: TBD Does the patient have an acute stroke diagnosis, or has the patient had a stroke during this admission? No ADVANCE DIRECTIVES: Does Patient Have Advance Directives? No, copies given Does Patient Have Concerns About Advance Directives? No PRIOR TO ADMISSION: Baseline Mental Status: Alert AND Oriented, Person, Place , Time and Situation Functional Status: Independent Does Patient Currently Receive Any Community Services or Home Care? None Equipment Prior to Admission: Cane - Straight Walker HEALTH: Health Issues Impacting Discharge Plan: None Health Literacy Issues: No PSYCHOSOCIAL: Is the Patient Psychosocially Complex? No Family/Patient Understanding of Illness/Diagnosis: patient verbalized understanding of diagnosis and treatment plan Medication Adherence: Do you forget to take your medications? I do not forget to take my medication Have you ever stopped taking medications because you felt worse? None of the time Have you ever taken less of your medication than what was prescribed by your doctor? None of the time In the past 3 months, have you had issues obtaining one or more of your medications? None of the time Are you interested in bedside delivery of your medications? No Food Concerns: In the Last Month, Have You had Trouble Getting Food? No trouble getting food During the Last Month, Have You Worried Whether Your Food Would Run Out Before You Had Enough Money to Buy More? No Psychosocial Needs: None UTILIZATION: Last Admission Date: none Is this Within the Past 30 days? No Has the Patient Been in a Half-Way Facility in the Past 30 days? N/A FREEDOM OF CHOICE EXPLAINED: N/A HANDOFF COMMUNICATION: No hand off at this time SIGNATURE: Lilli Betancourt RN PATIENT NAME: Maxx Knott DATE: April 16, 2017 TIME: 11:20 AM PAGER/CONTACT #: [phone] PROTIME Collected: 04/16/2017 Status: F Source: [place] 6:48 AM [facility] [place] REPOSITORY TYPE CODE TESTS RESULT OUT OF RANGE REFERENCE UNITS LAB PSEC 9.7-13.0 sec PT Sec 11.4 LAB INR 0.9-1.3 PT INR 1.1 Result Comment: Vitamin K Antagonist (VKA) Therapeutic Range: INR 2 to 3 (Target INR of 2.5) Note: For patients treated with VKA drugs, such as warfarin, the [place] [employer] 2012 Guideline recommends a therapeutic INR range of 2 to 3 (target INR of 2.5). This recommendation includes high-risk patients with antiphospholipid syndrome with previous arterial or venous thromboembolism, current-generation mechanical or bioprosthetic aortic heart valve replacement. Note: Patients with mechanical aortic valve replacement and additional risk factors for thromboembolic events (atrial fibrillation, previous thromboembolism, LV dysfunction, hypercoagulable conditions) or an older generation mechanical AVR (i.e., ball in-Cage) or any mechanical MVR should have a INR therapeutic range of 2.5 to 3.5 (target INR of 3). Lorelei GH, et al. Chest 2012, 141:7S-47S Teofilo ORTIZ et al. [facility] 2017, 70: 252-289 Performed By: #### PT, PTT #### [facility] [address] [address] APTT Collected: 04/16/2017 Status: F Source: [place] 6:48 AM [facility] REPOSITORY TYPE CODE TESTS RESULT OUT OF RANGE REFERENCE UNITS LAB APTT 23.0-32.4 sec APTT 26.7 Result Comment: Unfractionated Heparin Therapeutic Ranges: Standard Heparin Nomogram: 53 to 78 seconds (anti-Xa level of 0.3 to 0.7 U/ml) Low Dose/ACS Nomogram: 49 to 67 seconds (anti-Xa level of 0.2 to 0.5 U/ml) Stroke Treatment Nomogram: 49 to 67 seconds (anti-Xa level of 0.2 to 0.5 U/ml) Note: The APTT therapeutic range has been determined for the current lot of laboratory APTT reagent in use throughout the [facility]. Performed By: #### PT, PTT #### [facility] [address], [place] [address] TYPE AND SCREEN Collected: 04/16/2017 Status: F Source: [place] 6:47 [facility] REPOSITORY TYPE CODE TESTS RESULT OUT OF REFERENCE UNITS RANGE LAB %ABR O ABO/RH(D) POSITIVE LAB % Antibody NEG Screen Performed By: #### TSCR #### [facility] [address] [place], [place] [address] CBC AND DIFFERENTIAL Collected: 04/16/2017 Status: F Source: [place] 6:46 [facility] REPOSITORY TYPE CODE TESTS RESULT OUT OF REFERENCE UNITS RANGE LAB WBC 3.70-11.00 k/uL WBC 10.13 LAB RBC 4.20-6.00 m/uL Low RBC 4.19 LAB HGB 13.0-17.0 g/dL Hemoglobin 13.3 LAB HCT 39.0-51.0 % Hematocrit 39.5 LAB MCV 80.0-100.0 fL MCV 94.3 LAB MCH 26.0-34.0 pG MCH 31.7 LAB MCHC 30.5-36.0 g/dL MCHC 33.7 LAB RDWCV 11.5-15.0 % RDW-CV 14.2 LAB PLTCT 150-400 k/uL Platelet Count 293 LAB MPV 9.0-12.7 fL MPV 10.3 LAB ANEUT % Neut% 68.5 LAB AANEUT 1.45-7.50 k/uL Abs Neut 6.94 LAB ALYMP % Lymph% 20.4 LAB AALYMP 1.00-4.00 k/uL Abs Lymph 2.07 LAB AMONO % [place]% 7.4 LAB AAMONO <0.87 k/uL Abs [place] 0.75 LAB AEOS % Eosin% 3.2 LAB AAEOS <0.46 k/uL Abs Eosin 0.32 LAB ABASO % Baso% 0.5 LAB AABASO <0.11 k/uL Abs Baso 0.05 LAB AUNRBC 0 /100 WBC NRBCs 0.0 LAB ABNRBC <0.01 k/uL Absolute nRBC <0.01 LAB DTYP DTYPE Auto Diff Performed By: #### CBCDIF, BMP, CKCKMB, BRAYAN #### [facility] [address] [place], [place] [address] BASIC METABOLIC PANL Collected: 04/16/2017 Status: F Source: [place] 6:46 AM [facility] [place] REPOSITORY TYPE CODE TESTS RESULT OUT OF REFERENCE UNITS RANGE LAB GLU 74-99 mg/dL High Glucose 108 Result Comment: The [place] Diabetes Association (ADA) provides guidance for cutoff values for fasting glucose and random glucose. The ADA defines fasting as no caloric intake for at least 8 hours. Fas ting plasma glucose results between 100 to 125 mg/dL indicate increased risk for diabetes (prediabetes). Fasting plasma glucose results greater than or equal to 126 mg/dL meet the criteria for diagnosis of diabetes. In the absence of unequivocal hyperglycemia, results should be confirmed by repeat testing. In a patient with classic symptoms of hyperglycemia or hyperglycemic crisis, random plasma glucose results greater than or equal to 200 mg/dL meet the criteria for diagnosis of diabetes. Reference: Standards of Medical Care in Diabetes 2016, [place] Diabetes Association. Diabetes Care. 2016.39(Suppl 1). LAB BUN 9-24 mg/dL BUN 12 LAB CRET 0.73-1.22 mg/dL Creatinine 0.88 LAB NA 136-144 mmol/L Sodium 143 LAB K 3.7-5.1 mmol/L Potassium Low 3.4 LAB CL 97-105 mmol/L Chloride 105 LAB CO2 22-30 mmol/L CO2 28 LAB AGAP 9-18 mmol/L Anion Gap 10 LAB CA 8.5-10.2 mg/dL Calcium, Total 9.0 LAB GFRAA eGFR- Amer. >60 LAB GFRNAA . eGFR-All Other Races >60 Result Comment: eGFR (Estimated GFR) Units of measure: mL/min/1.73 meters squared eGFR is derived from the reexpressed MDRD Study equation using the following parameters: serum creatinine, age, gender and race. The creatinine assay has been calibrated to be traceable to IDMS. An eGFR <60 mL/min/1.73m2 for >3 months is consistent with chronic kidney disease. Refer to KDOQI guidelines for clinical interpretation. In patients with unstable renal function, e.g. those with acute kidney injury, the eGFR may not accurately reflect actual GFR. Performed By: #### CBCDIF, BMP, CKCKMB, BRAYAN #### [facility] [address] [place], [place] [address] CK, TOTAL AND CKMB Collected: 04/16/2017 Status: F Source: [place] 6:46 AM [facility] REPOSITORY TYPE CODE TESTS RESULT OUT OF RANGE REFERENCE UNITS LAB CK 51-298 U/L Low CK 30 Result Comment: Please note the updated, gender-specific reference range for this test (effective 04/13/2016). LAB MB <7.7 ng/mL MB 1.0 Result Comment: Please note the updated, gender-specific reference range for this test (effective 04/14/2016). LAB CKMBRI 0.0-4.0 % CK MB % not reported CK MB % with CK <100 U/L. Performed By: #### CBCDIF, BMP, CKCKMB, BRAYAN #### [facility] [address] [employer] [employer] [place], [place] [address] TROPONIN T Collected: 04/16/2017 Status: F Source: [place] 6:46 [facility] REPOSITORY TYPE CODE TESTS RESULT OUT OF REFERENCE UNITS RANGE LAB TROPT 0.000-0.029 ng/mL Troponin T <0.010 Performed By: #### CBCDIF, BMP, CKCKMB, BRAYAN #### [facility] [address] [place], [place] [address] CBC AND DIFFERENTIAL Collected: 04/16/2017 Status: F Source: [place] 12:02 [facility] REPOSITORY TYPE CODE TESTS RESULT OUT OF RANGE REFERENCE UNITS LAB WBC 3.70-11.00 k/uL WBC 9.76 Result Comment: Microtainer specimen LAB RBC 4.20-6.00 m/uL RBC Low 4.19 LAB HGB 13.0-17.0 g/dL Hemoglobin 13.1 LAB HCT 39.0-51.0 % Hematocrit Low 38.7 LAB MCV 80.0-100.0 fL MCV 92.4 LAB MCH 26.0-34.0 pG MCH 31.3 LAB MCHC 30.5-36.0 g/dL MCHC 33.9 LAB RDWCV 11.5-15.0 % RDW-CV 14.0 LAB PLTCT 150-400 k/uL Platelet Count 291 Result Comment: No clot detected. LAB MPV 9.0-12.7 fL MPV 10.8 LAB ANEUT % Neut% 66.0 LAB AANEUT 1.45-7.50 k/uL Abs Neut 6.44 LAB ALYMP % Lymph% 24.7 LAB AALYMP 1.00-4.00 k/uL Abs Lymph 2.41 LAB AMONO % [place]% 7.2 LAB AAMONO <0.87 k/uL Abs [place] 0.70 LAB AEOS % Eosin% 1.8 LAB AAEOS <0.46 k/uL Abs Eosin 0.18 LAB ABASO % Baso% 0.3 LAB AABASO <0.11 k/uL Abs Baso 0.03 LAB AUNRBC 0 /100 WBC NRBCs 0.0 LAB ABNRBC <0.01 k/uL Absolute nRBC <0.01 LAB DTYP DTYPE Auto Diff Performed By: #### CBCDIF, BMP, BRAYAN, CKCKMB #### [facility] [address] [place] [address] BASIC METABOLIC PANL Collected: 04/16/2017 Status: F Source: [place] 12:02 [facility] REPOSITORY TYPE CODE TESTS RESULT OUT OF REFERENCE UNITS RANGE LAB GLU 74-99 mg/dL High Glucose 141 Result Comment: The [place] Diabetes Association (ADA) provides guidance for cutoff values for fasting glucose and random glucose. The ADA defines fasting as no caloric intake for at least 8 hours. Fas ting plasma glucose results between 100 to 125 mg/dL indicate increased risk for diabetes (prediabetes). Fasting plasma glucose results greater than or equal to 126 mg/dL meet the criteria for diagnosis of diabetes. In the absence of unequivocal hyperglycemia, results should be confirmed by repeat testing. In a patient with classic symptoms of hyperglycemia or hyperglycemic crisis, random plasma glucose results greater than or equal to 200 mg/dL meet the criteria for diagnosis of diabetes. Reference: Standards of Medical Care in Diabetes 2016, [place] Diabetes Association. Diabetes Care. 2016.39(Suppl 1). LAB BUN 9-24 mg/dL BUN 12 LAB CRET 0.73-1.22 mg/dL Creatinine 0.90 LAB NA 136-144 mmol/L Sodium 143 LAB K 3.7-5.1 mmol/L Potassium Low 3.3 LAB CL 97-105 mmol/L Chloride 102 LAB CO2 22-30 mmol/L CO2 24 LAB AGAP 9-18 mmol/L Anion Gap 17 LAB CA 8.5-10.2 mg/dL Calcium, Total 9.1 LAB GFRAA eGFR- Amer. >60 LAB GFRNAA . eGFR-All Other Races >60 Result Comment: eGFR (Estimated GFR) Units of measure: mL/min/1.73 meters squared eGFR is derived from the reexpressed MDRD Study equation using the following parameters: serum creatinine, age, gender and race. The creatinine assay has been calibrated to be traceable to IDMS. An eGFR <60 mL/min/1.73m2 for >3 months is consistent with chronic kidney disease. Refer to KDOQI guidelines for clinical interpretation. In patients with unstable renal function, e.g. those with acute kidney injury, the eGFR may not accurately reflect actual GFR. Performed By: #### CBCDIF, BMP, BRAYAN, CKCKMB #### [facility] [address] [place], [place] [address] TROPONIN T Collected: 04/16/2017 Status: F Source: [place] 12:02 [facility] [place] REPOSITORY TYPE CODE TESTS RESULT OUT OF REFERENCE UNITS RANGE LAB TROPT 0.000-0.029 ng/mL Troponin T <0.010 Performed By: #### CBCDIF, BMP, BRAYAN, CKCKMB #### [facility] [address] [place], [place] [address] CK, TOTAL AND CKMB Collected: 04/16/2017 Status: F Source: [place] 12:02 AM [facility] REPOSITORY TYPE CODE TESTS RESULT OUT OF RANGE REFERENCE UNITS LAB CK 51-298 U/L Low CK 39 Result Comment: Please note the updated, gender-specific reference range for this test (effective 04/13/2016). LAB MB <7.7 ng/mL MB 1.0 Result Comment: Please note the updated, gender-specific reference range for this test (effective 04/14/2016). LAB CKMBRI 0.0-4.0 % CK MB % not reported CK MB % with CK <100 U/L. Performed By: #### CBCDIF, BMP, BRAYAN, CKCKMB #### [facility] [address] [place], [place] [address] NURSING PROG Observed: 04/15/2017 Status: COMPLETED Source: [place] 11:10 PM [facility] REPOSITORY HNO ID: [id number] Author: Miya (Rn) MITCHELL Pelaez Service: (none) Author Type: Registered Nurse Type: Nursing Progress Note Filed: 04/16/2017 6:18 AM Note Text: Admission/Transfer Note PATIENT NAME: Maxx Knott Patient admitted from ED into [facility] via bed with an Initial blood pressure of 186/75. Oncall GIM team notified. Ordered and gave home blood pressure medications( Norvasc,plavix, and Toprol) Blood pressure now 130/60. Actions taken: Patient also oriented to room, call light function, prescribed activities and Patient rights. The patient has been instructed on the plan of care. Patient belongings with patient. This note was completed by: Miya Pelaez RN HISTORY PHYSICAL Observed: 04/15/2017 Status: COMPLETED Source: [place] 10:23 PM [facility] REPOSITORY HNO ID: [id number] Author: Wm Hernandez Service: Hospital Medicine Author Type: Physician Type: HANDP Filed: 04/15/2017 10:48 PM Note Text: DEPARTMENT OF HOSPITAL MEDICINE HISTORY AND PHYSICAL EXAM SERVICE DATE: 04/15/2017 SERVICE TIME: 10:23 PM Primary [facility] Physician[facility] NIGHT AND WEEKEND COVERAGE: Please page - [phone], and after 730 am page the GIM team SUBJECTIVE HPI Maxx Knott is a 66 year old male with history of CAD s/p CABG x3 ([id number]-xlmmlo, EIZ-ACE-geoddk, JXS-VV8-oaxgyyug) (2006 at [place]), systolic congestive heart failure, ischemic (EF 50%), Diverticulitis c/b perforation (July 2016) s/p Chad with loop colostomy (with frequent ED visits for prolapsed stoma) who presents with a prolapsed stoma. ?? Pt states bowel started protruding into his stoma bag about 2 hours PRIOR TO admission. He states he is not sure if a specific cause attributed to the prolapse but remembers lifting a gallon of milk before it happened. States having associated periumbilical, and LLQ pain 5/10. Pt denies nausea/vomiting, Constipation, diarrhea. Patient also reported chest pain/discofort left sided , started since the colostomy prolapse ,continuous , 5/10, pain increased on taking deep breath/coughing, no palpitations, diaphoresis, No dignificant SOB. ROS - positive for runny nose and occasional cough with phlegm, denies any fever. ? PAST MEDICAL HISTORY Diagnosis Date - Diverticulitis Perforated Diverticulitis - Peritonitis (HCC) PAST SURGICAL HISTORY Procedure Laterality Date - APPENDECTOMY HX - COLON SURGERY HX 07/2016 [facility] - HEART SURGERY HX triple bypass 10 yrs ago No family history on file. Social History Substance Use Topics - Smoking status: Current Every Day Smoker Packs/day: 0.50 Types: Cigarettes - Smokeless tobacco: Not on file Comment: trying to quit - Alcohol use No MEDICATIONS: Reviewed Current hospital medications: acetaminophen 650 mg tab(s) (TYLENOL) 650 mg ORAL q 6 H PRN docusate sodium 100 mg cap(s) (COLACE) 100 mg ORAL BID PRN magnesium hydroxide 400 mg/5 mL 30 mL (MOM) 30 mL ORAL BID PRN ondansetron (PF) 4 mg injection (ZOFRAN) 4 mg INTRAVENOUS q 6 H PRN heparin 5,000 Units injection 5,000 Units SUBCUTANEOUS q 12 H amLODIPine 10 mg tab(s) (NORVASC) 10 mg ORAL DAILY aspirin 81 mg chewable tab(s) 81 mg ORAL DAILY clopidogrel 75 mg tab(s) (PLAVIX) 75 mg ORAL DAILY cyclobenzaprine 10 mg tab(s) (FLEXERIL) 10 mg ORAL BID PRN gabapentin 300 mg cap(s) (NEURONTIN) 300 mg ORAL AT BEDTIME losartan 100 mg tab(s) (COZAAR) 100 mg ORAL DAILY metoprolol succinate ER 100 mg tab(s) (TOPROL XL) 100 mg ORAL DAILY nitroglycerin sublingual 0.4 mg tab(s) (NITROQUICK) 0.4 mg SUBLINGUAL PRN pravastatin 40 mg tab(s) (PRAVACHOL) 40 mg ORAL DAILY QUEtiapine 400 mg tab(s) (SEROquel) 400 mg ORAL AT BEDTIME dextrose 5% in NaCl 0.9% iv infusion 50 mL/hr INTRAVENOUS CONTINUOUS oxyCODONE-acetaminophen 5-325 mg 1-2 tablet (PERCOCET) 1-2 tablet ORAL q 4 H PRN furosemide 40 mg tab(s) (LASIX) 40 mg ORAL PRN ALLERGIES Allergen Reactions - Altaseptic Unknown - Crestor [Rosuvastat* Unknown - Hctz [Amiloride-Hyd* Unknown - Ramipril Unknown - Simvastatin Unknown - Voltaren [Diclofena* Unknown Review of Systems REVIEW OF SYSTEMS REVIEW OF SYSTEMS: CONSTITUTIONAL: No fevers, nightsweats, unintended weight loss HEENT: Denies frequent or severe heaches, nasal congestion/sinus symptoms, problematic allergy problems. EYES: No diplopia or blurry vision. CARDIOVASCULAR: As in HPI PULM: No dyspnea, unexplained cough. GI: No dysphagia/odynophagia, problematic reflux, constipation, diarrhea, changes in stool habits, hematochezia, melena. : No new urinary complaints, including dysuria, gross hematuria or pyuria. NEURO: No new balance problems, peripheral weakness/paresthesias or numbness of concern. MUSC-SKEL: No new joint pain, swelling, or erythema. PSY: No concerns regarding depression, anxiety or panic. INTEGUMENTARY: No new skin changes (rash, new or changing mole, new growth) OBJECTIVE Physical Exam Vital Signs: BP 186/75 Pulse 64 Temp (Src) 98.4 (Oral) Resp 18 Ht 5' 8 (1.73m) Wt 200 lb (90.7kg) SpO2 98% BMI 30.42 kg/(m2). PHYSICAL EXAMINATION General: Alert and oriented, no distress, pleasant and cooperative. Heart: Regular, normal S1 and S2, no murmurs, rubs, or gallops Lungs: Clear to auscultation bilaterally Abdomen: Soft, mild tenderness all over the abdomen , no guarding or rigidity, prolapsed colostomy stoma seen with no sign of infection around the stoma Extremities: Feet/ankles without edema, posterior tibial pulses full and symmetrical Neuro - no focal neuro deficit. DATA: Diagnostic tests reviewed for today's visit: Most recent labs and imaging results. CBC: Recent Labs 04/15/171814 WBC 9.78 RBC 4.14* HB 13.1 HCT 37.6* PLT 321 MCV 90.8 MCH 31.6 MPV 10.4 CMP: Recent Labs 04/15/171814 NA 140 K 3.4* CHLOR 102 CO2 24 BUN 13 CREAT 0.90 GLUC 92 TPROT 7.0 CA 9.2 TBILI 0.3 ALKPHOS 71 ALT 17 AST 13* ANION 14 Cardiac Enzymes: Recent Labs 04/15/171814 TROPT <0.010 ASSESSMENT/PLAN Principal Problem: Colostomy prolapse (HCC) POA: Yes Assessment AND Plan: etiology unclear , but h/o recurrent stoma prolapse this year SEEN by [facility]. - may get colostomy reversion DURING THIS ADMISSION. - NPO per [facility] - Likely reversal os stoma on sunday - Cardiology clearance in am as requested by [facility]. Active Problems: Chest pain POA: Yes rule out ACS Assessment AND Plan: atypical chest discomfort , 5/10 more on the left side. Exacerbated by deep breath. - Initial Ekg - NSR, non specific t wave changes unchanged from nov, incompleteRBBB - HStrop - 14 mildly elevated, tropnin t - negative - 2Decho done recently EF - 50% Plan - continue with aspirin and plavix as patient is s/p stenting in September this year. - continue pravastatin, cozaar, and meoprolol - will do serial cardiac enzymes and check repeat EKG In am. CHF (congestive heart failure) (HCC) POA: No Assessment AND Plan:s/p pacemaker implantation in January. EF - 12/4 - 50% WITH grade 1 dialstolic dysfucntion - Currently compensated with clear CXR. continue with cozaar and metoprolol. - Lasix as needed for fluid overload. ? H/o Depression - continue with seroquel Chronic back pain - continue with gabapentin and percocet as needed. VTE Prophylaxis: Heparin 5000 units Sub Q BID Disposition: admit to RNF Plan of care discussed with: Patient SIGNATURE: Wm Hernandez MD PATIENT NAME: Maxx Knott DATE: April 15, 2017 TIME: 10:23 PM PAGER/CONTACT #: [phone] ED NOTE Observed: 04/15/2017 Status: COMPLETED Source: [place] 8:00 PM [facility] REPOSITORY HNO ID: [id number] Author: Michelle KingRn) MITCHELL Smith Service: Emergency Medicine Author Type: Registered Nurse Type: ED Notes Filed: 04/15/2017 9:37 PM Note Text: Pt resting in bed. Family at bedside. States some improvement in chest, abdomen and back(5/10) since being medicated. NAD noted. Will continue to monitor. XR CHEST 2V FRONTAL/LAT Observed: 04/15/2017 Status: F Source: [place] 7:57 PM [facility] REPOSITORY * * *Final Report* * * DATE OF EXAM: Apr 15 2017 7:57PM [id number] [id number] - XR CHEST 2V FRONTAL/LAT / PROCEDURE REASON: Chest pain * * * * Physician Interpretation * * * * EXAMINATION: XR CHEST 2V FRONTAL/LAT PATIENT/TECHNOLOGIST PROVIDED HISTORY: same CLINICAL INFORMATION: Chest pain TECHNIQUE: Frontal and lateral views. (2 images) M: XC2_3 Comparison: CXR 04/02/[address] abdomen/pelvis 12/17/2016 RESULT: Lines, tubes, and devices: Left pacemaker with intact appearing leads terminating in the right atrium and ventricle. Lungs and pleura: No focal consolidation, pleural effusion or pneumothorax. Opacity at the left lung base consistent with mid diaphragmatic hernia better seen on CT abdomen/pelvis. Cardiomediastinal silhouette: Stable mildly enlarged cardiomediastinal silhouette. Status post median sternotomy and CABG. Multiple coronary stents. Pulmonary vascular markings are unremarkable. Other: Degenerative changes of the spine. IMPRESSION: NO ACUTE RADIOGRAPHIC ABNORMALITY. Prep Room Supervisor: MAGI Transcribe Date/Time: Apr 15 2017 7:57P Dictated by : DORINA BUTTERFIELD MD This examination was interpreted and the report reviewed and electronically signed by: KEELEY SUAREZ MD on Apr 15 2017 8:41PM EST [id number] PROGRESS Observed: 04/15/2017 Status: COMPLETED Source: [place] 7:56 PM [facility] REPOSITORY HNO ID: [id number] Author: Jovani KingRtLaurel Greene Service: Radiology Author Type: Scraper Meat Type: Progress Notes Filed: 04/15/2017 7:56 PM Note Text: Radiology Service Progress Note PATIENT NAME: Maxx Knott DATE OF SERVICE: April 15, 2017 TIME: 7:56 PM PATIENT IDENTITY VERIFICATION COMPLETED USING TWO (2) METHODS: Patient confirmed name verbally and ID band matches.. PATIENT GENDER DATA: Male PATIENT RELEVANT IMPLANT DATA REVIEWED: Yes RADIOLOGY DEPARTMENT: General X-ray: Exam(s) Completed: Chest X-Ray PERIPHERAL IV DATA: Not applicable SIGNED BY: RT Sonny April 15, 2017 7:56 PM HIGH SENS TROPONIN T Collected: 04/15/2017 Status: F Source: [place] 7:53 PM [facility] REPOSITORY TYPE CODE TESTS RESULT OUT OF REFERENCE UNITS RANGE LAB HSTN <12 ng/L High High Sensitivity BRAYAN 14 Result Comment: When assessing risk for acute coronary syndromes: In patients undergoing blood draw greater than or equal to 2 hours from symptom onset, with history of very low to moderate risk and non-ischemic ECG, an initial hs-Troponin T less than 12 ng/L AND a 1 hour delta hs-Troponin T less than 3 ng/L should be considered very low risk for 30 day MACE. Performed By: #### HSTNT #### [facility] [address] [place] [address] ED NOTE Observed: 04/15/2017 Status: COMPLETED Source: [place] 7:30 PM [facility] REPOSITORY HNO ID: [id number] Author: Michelle KingRnBeth Smith RN Service: Emergency Medicine Author Type: Registered Nurse Type: ED Notes Filed: 04/15/2017 9:35 PM Note Text: Colorectal at bedside. CONSULT Observed: 04/15/2017 Status: COMPLETED Source: [place] 7:11 PM [facility] [place] REPOSITORY HNO ID: [id number] Author: Angella Klein Service: Colorectal Author Type: Resident Type: Consults Filed: 04/15/2017 9:34 PM Note Text: SURGICAL SERVICES INITIAL CONSULT SERVICE DATE: 04/15/2017 SERVICE TIME: 7:11 PM REASON FOR CONSULT: Prolapsed stoma REQUESTING PHYSICIAN: ED PRIMARY CARE PHYSICIAN: [facility] SUBJECTIVE HISTORY OF PRESENT ILLNESS: Maxx Knott is a 66 year old male with history of CAD s/p CABG x3 (LJQQ-PXY-hjhilh, WFH-ZCI-azdnir, QZR-FR5-bavognef) (2006 at [place]), systolic congestive heart failure, ischemic (EF 45%), Diverticulitis c/b perforation (July 2016) s/p Chad with loop colostomy (with frequent ED visits for prolapsed stoma) who presents with a prolapsed stoma, SOB, productive cough and chest discomfort. ? Pt states bowel started protruding into his stoma bag about 2 hours ago. He states he is not sure if a specific cause attributed to the prolapse but remembers lifting a gallon of milk before it happened. States having associated periumbilical, and LLQ pain 5/10. Pt denies nausea/vomiting. Pt admits to chills, denies fevers. FUNCTIONAL STATUS: independent PAST MEDICAL HISTORY Diagnosis Date - Diverticulitis Perforated Diverticulitis - Peritonitis (HCC) PAST SURGICAL HISTORY Procedure Laterality Date - APPENDECTOMY HX - COLON SURGERY HX 07/2016 [facility] - HEART SURGERY HX triple bypass 10 yrs ago No family history on file. Social History Substance Use Topics - Smoking status: Current Every Day Smoker Packs/day: 0.50 Types: Cigarettes - Smokeless tobacco: Not on file Comment: trying to quit - Alcohol use No (Not in a hospital admission) Current hospital medications: morphine 4 mg injection 4 mg INTRAVENOUS ONCE ALLERGIES Allergen Reactions - Altaseptic Unknown - Crestor [Rosuvastat* Unknown - Hctz [Amiloride-Hyd* Unknown - Ramipril Unknown - Simvastatin Unknown - Voltaren [Diclofena* Unknown COMPLETE REVIEW OF SYSTEMS: PAIN ASSESSMENT: see HPI. GENERAL: No weight loss, malaise or fevers. +chills RESPIRATORY: + productive cough. No hemoptysis, wheezing, COPD, dyspnea or shortness of breath CARDIOVASCULAR: Negative for chest pain, leg swelling, hypertension, CHF or palpitations GI: No nausea, vomiting, or diarrhea : No history of dysuria, frequency or incontinence OBJECTIVE PHYSICAL EXAM: BP 188/83 Pulse 66 Temp 36.5 ?C (97.7 ?F) (Oral) Resp 22 Ht 172.7 cm (5' 8) Wt 90.7 kg (200 lb) SpO2 97% BMI 30.41 kg/m2 Body mass index is 30.41 kg/(m2). GENERAL: Alert, no distress, cooperative LUNGS: non labored breathing on RA CARDIAC: RRR ABDOMEN: soft, tender over LLQ, non distended, non peritonitic. Colostomy and stoma prolapse, as able to reduce it with sugar and no signs of incarceration or obstruction EXTREMITIES: Extremities normal, no deformities, edema, clubbing or skin discoloration. Good capillary refill., No ulcers DATA: Diagnostic tests reviewed for today's visit: CBC, Coags, BMP, Mg, Phos Recent Labs 04/15/17 1815 WBC 9.78 HB 13.1 HCT 37.6* PLT 321 NA 140 K 3.4* CHLOR 102 CO2 24 BUN 13 CREAT 0.90 GLUC 92 CA 9.2 Liver Function, Amylase, AND Lipase Recent Labs 04/15/17 1815 TPROT 7.0 ALB 4.0 ALT 17 AST 13* ALKPHOS 71 TBILI 0.3 LIPASE 17 IMPRESSION/RECOMMENDATIONS 66 yo male with history of diverticulitis and loop colostomy, who came in to ED with prolapsed stoma. He's been in ED multiple times with same complaint and has been advised to follow up in clinic for reversal and stoma closure. Stoma prolapse was reduced with sugar. Pt denies nauseas/vomiting, +BM, viable bowel. Upon further ED workup pt has positive troponins and EKG changes -Admit to IM -Cardiology workup -Active type and screen -Will discuss timing for ostomy reversal Seen and discussed with senior resident Dr. Klein SIGNATURE: Keena Levi MD PATIENT NAME: Maxx Knott DATE: April 15, 2017 TIME: 7:11 PM PAGER/CONTACT #: [id number] Senior Addendum: This is a 66 year old male with a history of CAD s/p CABG and perforated diverticulitis s/p loop colostomy at an OSH (records unavailable at this time) complicated by stomal prolapse. The patient has presented to [facility] multiple times since December with complaints of stomal prolapse. Each time the stoma is easily reducible. The patient has missed multiple colorectal outpatient appointments to discuss having his ostomy reversed. The patient present to the ED again with complaints of stomal prolapse. He denies any fever or chills. No nausea or vomiting. He is eating and tolerating an oral diet. His ostomy is functioning well. On exam, the patient is awake, alert and in no acute distress. His abdomen is obese with a right midabdominal loop colostomy which is prolapsed at the time of exam. The mucosa is pink and viable and there is stool in the bag. With gentle palpation the prolapse is easily reducible. The prolapse returns with any valsalva maneuver, but each time reduces without issue. A/P: 66 year old male with a chronically prolapsing loop colostomy who as been non-complaint with follow up Now also with mildly elevated troponin and possible new RBBB on EKG Recommend admission to medicine for evaluation of cardiac issues NPO [facility] will follow for possible ligation of distal limb and/or ostomy reversal this admission Please obtain cardiac clearance for possible operative intervention Will obtain OSH records to clarify prior surgical interventions IV antibiotics- no indication for antibiotics at this time Transfusion- no indication for transfusion at this time Please obtain preop labs including cbc, bmp, coags, type and screen Preop EKG and CXR performed SCD and SQH OOB and IS Plan discussed with process automation engineer [facility] staff, Dr. Nirav Klein MD General Surgery Resident [id number] [id number] CBC AND DIFFERENTIAL Collected: 04/15/2017 Status: F Source: [place] 6:15 PM [facility] [place] REPOSITORY TYPE CODE TESTS RESULT OUT OF REFERENCE UNITS RANGE LAB WBC 3.70-11.00 k/uL WBC 9.78 LAB RBC 4.20-6.00 m/uL Low RBC 4.14 LAB HGB 13.0-17.0 g/dL Hemoglobin 13.1 LAB HCT 39.0-51.0 % Low Hematocrit 37.6 LAB MCV 80.0-100.0 fL MCV 90.8 LAB MCH 26.0-34.0 pG MCH 31.6 LAB MCHC 30.5-36.0 g/dL MCHC 34.8 LAB RDWCV 11.5-15.0 % RDW-CV 13.8 LAB PLTCT 150-400 k/uL Platelet Count 321 LAB MPV 9.0-12.7 fL MPV 10.4 LAB ANEUT % Neut% 79.0 LAB AANEUT 1.45-7.50 k/uL Abs Neut High 7.72 LAB ALYMP % Lymph% 14.3 LAB AALYMP 1.00-4.00 k/uL Abs Lymph 1.40 LAB AMONO % [place]% 5.4 LAB AAMONO <0.87 k/uL Abs [place] 0.53 LAB AEOS % Eosin% 1.0 LAB AAEOS <0.46 k/uL Abs Eosin 0.10 LAB ABASO % Baso% 0.3 LAB AABASO <0.11 k/uL Abs Baso 0.03 LAB AUNRBC 0 /100 WBC NRBCs 0.0 LAB ABNRBC <0.01 k/uL Absolute nRBC <0.01 LAB DTYP DTYPE Auto Diff Performed By: #### CBCDIF, CMP, HSTNT, LIPA, BRAYAN #### [facility] [address], [place] [address] COMP METABOLIC PANEL Collected: 04/15/2017 Status: F Source: [place] 6:15 PM [facility] REPOSITORY TYPE CODE TESTS RESULT OUT OF REFERENCE UNITS RANGE LAB TP 6.3-8.0 g/dL Protein, Total 7.0 LAB ALB 3.9-4.9 g/dL Albumin 4.0 LAB CA 8.5-10.2 mg/dL Calcium, Total 9.2 LAB TBIL 0.2-1.3 mg/dL Bilirubin, Total 0.3 LAB ALKP 36-108 U/L Alkaline Phosphatase 71 LAB AST 14-40 U/L Low AST 13 LAB GLU 74-99 mg/dL Glucose 92 Result Comment: The [place] Diabetes Association (ADA) provides guidance for cutoff values for fasting glucose and random glucose. The ADA defines fasting as no caloric intake for at least 8 hours. Fas ting plasma glucose results between 100 to 125 mg/dL indicate increased risk for diabetes (prediabetes). Fasting plasma glucose results greater than or equal to 126 mg/dL meet the criteria for diagnosis of diabetes. In the absence of unequivocal hyperglycemia, results should be confirmed by repeat testing. In a patient with classic symptoms of hyperglycemia or hyperglycemic crisis, random plasma glucose results greater than or equal to 200 mg/dL meet the criteria for diagnosis of diabetes. Reference: Standards of Medical Care in Diabetes 2016, [place] [employer] Association. Diabetes Care. 2016.39(Suppl 1). LAB BUN 9-24 mg/dL BUN 13 LAB CRET 0.73-1.22 mg/dL Creatinine 0.90 LAB NA 136-144 mmol/L Sodium 140 LAB K 3.7-5.1 mmol/L Potassium Low 3.4 LAB CL 97-105 mmol/L Chloride 102 LAB CO2 22-30 mmol/L CO2 24 LAB AGAP 9-18 mmol/L Anion Gap 14 LAB ALT 10-54 U/L ALT 17 LAB GFRAA eGFR- Amer. >60 LAB GFRNAA . eGFR-All Other Races >60 Result Comment: eGFR (Estimated GFR) Units of measure: mL/min/1.73 meters squared eGFR is derived from the reexpressed MDRD Study equation using the following parameters: serum creatinine, age, gender and race. The creatinine assay has been calibrated to be traceable to IDMS. An eGFR <60 mL/min/1.73m2 for >3 months is consistent with chronic kidney disease. Refer to KDOQI guidelines for clinical interpretation. In patients with unstable renal function, e.g. those with acute kidney injury, the eGFR may not accurately reflect actual GFR. Performed By: #### CBCDIF, CMP, HSTNT, LIPA, BRAYAN #### [facility] [address] [place] [address] HIGH SENS TROPONIN T Collected: 04/15/2017 Status: F Source: [place] 6:15 PM [facility] REPOSITORY TYPE CODE TESTS RESULT OUT OF REFERENCE UNITS RANGE LAB HSTN <12 ng/L High High Sensitivity BRAYAN 14 Result Comment: When assessing risk for acute coronary syndromes: In patients undergoing blood draw greater than or equal to 2 hours from symptom onset, with history of very low to moderate risk and non-ischemic ECG, an initial hs-Troponin T less than 12 ng/L AND a 1 hour delta hs-Troponin T less than 3 ng/L should be considered very low risk for 30 day MACE. Performed By: #### CBCDIF, CMP, HSTNT, LIPA, BRAYAN #### [facility] [address] [place], [place] [id number] LIPASE Collected: 04/15/2017 Status: F Source: [place] 6:15 PM [facility] REPOSITORY TYPE CODE TESTS RESULT OUT OF REFERENCE UNITS RANGE LAB LIPA 16-61 U/L Lipase 17 Performed By: #### CBCDIF, CMP, HSTNT, LIPA, BRAYAN #### [facility] [address] [place] [address] TROPONIN T Collected: 04/15/2017 Status: F Source: [place] 6:15 PM [facility] [place] REPOSITORY TYPE CODE TESTS RESULT OUT OF REFERENCE UNITS RANGE LAB TROPT 0.000-0.029 ng/mL Troponin T <0.010 Performed By: #### CBCDIF, CMP, HSTNT, LIPA, BRAYAN #### [facility] [address] [place] [address] ED NOTE Observed: 04/15/2017 Status: COMPLETED Source: [place] 6:13 PM [facility] REPOSITORY HNO ID: [id number] Author: Catarino Galaviz) Galo Service: Emergency Medicine Author Type: Bed Setter and Scraper Meat Type: ED Notes Filed: 04/15/2017 6:13 PM Note Text: Labs were drawn and sent. URINALYSIS WITH Collected: 04/15/2017 Status: F Source: [facility] 6:02 PM [facility] REPOSITORY TYPE CODE TESTS RESULT OUT OF RANGE REFERENCE UNITS LAB UCOL Yellow Color Yellow LAB [facility] Clear Clarity Abnormal Cloudy Alert LAB UGLUC Negative mg/dL Glucose, Urine Negative LAB UBIL Negative Bilirubin, Urine Negative LAB UKET Negative Ketones, Urine Negative LAB USPG 1.005-1.030 Specific [place], Ur 1.028 LAB UHGB Negative Hemoglobin/Blood, Negative Ur LAB UPH 4.5-8.0 pH 5.0 LAB UPROT Negative mg/dL Protein, Abnormal Urine >=300 Alert LAB UUROB Normal Urobilinogen Normal LAB UNITR Negative Nitrites Negative LAB ULKEST Negative Leukest Negative LAB UCOM Comments SEE COMMENT Result Comment: N/A LAB UMCOM Urine SEE Cat Comment COMMENT Result Comment: N/A LAB UWBC 0-5 /HPF WBC 0-5 LAB URBC 0-3 /HPF RBC 0-3 Performed By: #### UAWMIC #### [facility] [address] [place], [place] [address] ED NOTE Observed: 04/15/2017 Status: COMPLETED Source: [place] 5:29 PM [facility] REPOSITORY HNO ID: [id number] Author: Michelle KingRn) MITCHELL Smith Service: Emergency Medicine Author Type: Registered Nurse Type: ED Notes Filed: 04/15/2017 5:32 PM Note Text: Assumed care of pt. Pt presented to ED for chest pain, SOB, chills, productive cough and ostomy issue. PT states chest pain, SOB, chills, and abdominal pain started x 2 hours ago. States ostomy placed 8 months ago due to diverticulitis and has had prolapse. Bieber bowel noted protruding into stoma bag. States abdominal pain around stoma site. C/o of productive cough x 1 day (mota sputum). NAD noted. Safety checks completed. Will continue to monitor. ED PROV NOTE Observed: 04/15/2017 Status: COMPLETED Source: [place] 5:21 PM [facility] REPOSITORY HNO ID: [id number] Author: Jerry Casarez MD Service: Emergency Medicine Author Type: Physician Type: ED Provider Notes Filed: 04/16/2017 1:01 PM Note Text: ED Provider Note Patient Name: Maxx Knott SERVICE DATE: 04/15/17 History Patient presents with: Back Pain: Pt presents to ED with c/o abdominal pain, specifically at stoma site, back pain , sob, all beginning one hour ago. Noted bowel protruding into stoma bag. Pt states first noted protrusion one hour ago. Pt with hx of colostomy prolapse. Abdominal Pain Ostomy Care Shortness of Breath Chest Pain: Pt with c/o chest pain beginning two hours ago. 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 Pt states bowel started protruding into his stoma bag about 2 hours BIOFUELS MANAGER to ED over the span of approximately ten minutes. He states he is not sure if a specific cause attributed to the prolapse. Pt notes he lifted a gallon of milk, but denies any other heavy lifting, trauma, exertion. He notes associated RUQ, RLQ, periumbilical, and LLQ pain that he states came on quickly, feels achy and stabbing, and is 9/10. Pt denies nausea/vomiting. Pt admits to chills, denies fevers. Pt also has complaints of chest pain that is located midsternum without radiation, achy in character. Denies n/v, jaw/arm pain, diaphoresis. Pt also admits to SOB and productive cough of one day with kaur sputum. Denies wheezing. Pt has complaints of back that is located over his spine in lumbar region which he states started around the same time as the prolapse. Pt admits to chronic numbness in B/L hands and B/L feet. Admits to decreased appetite, dysuria, urgency, frequency. Denies hematuria. Pt notes that he was recently admitted on 04/01/2017 for prolapsed stoma and discharged on 04/04/2017. Pt states he had the ostomy bag placed about 8 months ago 2/2 diverticulitis that ruptured on his lower left side. History provided by: Patient and medical records interpreter deaf used: No PAST MEDICAL HISTORY Diagnosis Date - Diverticulitis Perforated Diverticulitis - Peritonitis (HCC) PAST SURGICAL HISTORY Procedure Laterality Date - APPENDECTOMY HX - COLON SURGERY HX 07/2016 [facility] - HEART SURGERY HX triple bypass 10 yrs ago No family history on file. Social History Social History Main Topics - Smoking status: Current Every Day Smoker Packs/day: 0.50 Types: Cigarettes - Smokeless tobacco: None Comment: trying to quit - Alcohol use No - Drug use: No - Sexual activity: Not Currently ALLERGIES Allergen Reactions - Altaseptic Unknown - Crestor [Rosuvastat* Unknown - Hctz [Amiloride-Hyd* Unknown - Ramipril Unknown - Simvastatin Unknown - Voltaren [Diclofena* Unknown Review of Systems Constitutional: Positive for appetite change (decreased) and chills. Negative for fever. HENT: Negative for ear pain and hearing loss. Eyes: Positive for pain (ache B/L). Negative for visual disturbance. Respiratory: Positive for cough (productive with kaur sputum) and shortness of breath. Negative for wheezing. Cardiovascular: Positive for chest pain (midsternum, x 2 hours w/o radiation). Negative for palpitations. Pt notes that he has pacemaker 2/2 h/o a fib Gastrointestinal: Positive for abdominal pain (RUQ, RLQ, LLQ, periumbilical, most sensitive around the colostomy site). Negative for nausea and vomiting. Genitourinary: Positive for dysuria, frequency and urgency. Negative for hematuria. Musculoskeletal: Positive for back pain (lumbar spine region). Negative for arthralgias and joint swelling. Skin: Negative for pallor. Neurological: Negative for weakness, numbness and headaches. Positive for chronic tingling Hematological: Bruises/bleeds easily (Pt on plavix and asa). Psychiatric/Behavioral: Negative for agitation and confusion. Physical Exam BP 147/65 Pulse 60 Temp (Src) 97.7 (Oral) Resp 20 Ht 5' 8 (1.73m) Wt 200 lb (90.7kg) SpO2 96% BMI 30.42 kg/(m2). Physical Exam Constitutional: He is oriented to person, place, and time. He appears well-developed and well-nourished. HENT: Head: Normocephalic and atraumatic. Eyes: Conjunctivae and EOM are normal. Pupils are equal, round, and reactive to light. Neck: Normal range of motion. Neck supple. Cardiovascular: Normal rate, regular rhythm and normal heart sounds. Pulmonary/Chest: Effort normal and breath sounds normal. No respiratory distress. He has no wheezes. Abdominal: Soft. Bowel sounds are normal. He exhibits no distension. There is tenderness in the right upper quadrant, right lower quadrant, periumbilical area and left lower quadrant. There is no rebound and no guarding. Musculoskeletal: Normal range of motion. He exhibits no edema (B/L LE edema). Lumbar back: He exhibits pain. Neurological: He is alert and oriented to person, place, and time. Skin: Skin is warm and dry. Psychiatric: He has a normal mood and affect. His behavior is normal. Nursing note and vitals reviewed. Diagnostic Testing ED Labs Ordered and Reviewed URINALYSIS WITH MICROSCOPIC - Abnormal; Notable for the following: Result Value Ref Range Clarity Cloudy (*) Clear Protein, Urine >=300 (*) Negative mg/dL All other components within normal limits CBC + DIFF - Abnormal; Notable for the following: RBC 4.14 (*) 4.20 - 6.00 m/uL Hematocrit 37.6 (*) 39.0 - 51.0 % Abs Neut (ANC) 7.72 (*) 1.45 - 7.50 k/uL All other components within normal limits COMP METABOLIC PANEL - Abnormal; Notable for the following: AST 13 (*) 14 - 40 U/L Potassium 3.4 (*) 3.7 - 5.1 mmol/L All other components within normal limits HIGH SENSITIVITY TROPONIN T - Abnormal; Notable for the following: BRAYAN High Sensitivity 14 (*) <12 ng/L All other components within normal limits HIGH SENSITIVITY TROPONIN T - Abnormal; Notable for the following: BRAYAN High Sensitivity 14 (*) <12 ng/L All other components within normal limits TROPONIN T LIPASE BLD HIGH SENSITIVITY TROPONIN T TROPONIN T Procedures Medical Decision Making / ED Course ED Course Course: Vital signs were reviewed. Triage records were reviewed. Medical records were reviewed. Nursing notes were reviewed and incorporated. The attending who evaluated and managed this patient was Jerry Casarez . 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 Pt is afebrile and hemodynamically stable. BP 147/65 Pulse 60 Temp 36.5 ?C (97.7 ?F) (Oral) Resp 20 Ht 172.7 cm (5' 8) Wt 90.7 kg (200 lb) SpO2 96% BMI 30.41 kg/m2 Labs/Imaging results at this time: - CBC: ANC 7.7 (H), otherwise unremarkable change - CMP: AST 13, K 3.4, otherwise WNL - Lipase: 17 - Trop T: <0.010 - High Sens Trop: initial 14 (H), repeat 14 - UA cat: cloudy clarity, protein > 300 - EKG: NSR, possible LAE, RSR' or QR pattern in V1 suggests right ventricular conduction delay, nonspecific T wave abnormality Pt given 12mg IV morphine and 4mg IV Zofran for pain and nausea management in ED, with improvement. Medications morphine 4 mg injection (4 mg INTRAVENOUS Given 04/15/171825) ondansetron (PF) 4 mg injection (ZOFRAN) (4 mg INTRAVENOUS Given 04/15/171843) morphine 4 mg injection (4 mg INTRAVENOUS Given 04/15/171915) morphine 4 mg injection (4 mg INTRAVENOUS Given 04/15/172044) Consult Requested: Obtained from [facility] consultant(s) General Surgery. The [facility] consultant made the following conclusions/recommendations: admit pt to general medicine for cardiac work-up and PA r/o for clearance for surgery later this week to reverse ostomy. The following procedures were performed: successful reduction of colostomy prolapse At this time, the most likely Dx is colostomy prolapse, generalized abd pain, chest pain. Other Dxs considered but unlikely d/t HANDP, labs and imaging findings: AMI. Pt will need admission for further cards work-up and AMI r/o. I personally discussed with general surgery [facility] and plan is for patient to be admitted to [facility] for further cardiac work up and clearance for surgery later this week to have ostomy reversed. Patient expressed understanding and is amendable to this course of action. Patient understood suspected diagnosis and instruction. No barriers of communication were apparent and I answered all questions. Encounter Diagnosis ICD-10-CM 1. 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 Generalized abdominal pain R10.84 3. Atypical chest pain R07.89 Plan The Patient was ADMITTED TO: Regular nursing floor. Condition at time of disposition: stable and good SIGNATURE: ALEM Brooke-Crystal Peraza (Alem) ALEM Bernabe 04/15/17 2213 Attending Note I have personally performed a face to face assessment of the patient and have reviewed the PA/GUEST RELATIONS RECEPTIONIST note. My nelson findings include: EKG INTERPRETATION: Time: 16:52 RHYTHM: Normal sinus rhythm at 74 beats per minute AXIS: Normal axis INTERVALS: borderline first degree AV block QRS COMPLEX: Normal ST SEGMENT: Nonspecific ST-T segments QT INTERVAL: 455 COMPARED WITH PRIOR: changed as prior ECG was paced with prolonged QTc on 04/02/17 Directly visualized and independently interpreted by Dr. Jerry Casarez. Briefly this is a 66 year old male with a prolapsed stoma. He was just discharged on 04/04 for a similar problem. Prolapse started while sitting at home and happened over 10 minutes at home. Has moderate right sided and LLQ pain, but focus of tenderness is around the ostomy site. Pain is achy and stabbing, /10. He has had the ostomy for 8 months due to a ruptured diverticulitis. He denies fevers, nasuea or vomiting, but has some chills but has associated mid sternal chest achy pain when symptoms started, with mild associated SOB. Cardiac history is pertinent for CABG, afib, but this pain is different than prior PA. He has associated productive cough x 1 day. I personally examined the patient and my exam was notable for a cardiac exam with regular rate and rhythm with no murmurs, rubs, or gallops and 2+ radial pulses, lungs were CTAB with no respiratory distress or stridor, on abdominal exam he had a large softball sized prolapse of his ostomy and some moderate tenderness around the prolapse but no peritoneal signs in his abdomen otherwise on exam. There was some normal stool in the ostomy bag with no gross bleeding. Differential diagnosis includes the following 1. Ostomy prolapse 2. Pneumonia 3. Dehydration 4. Arrhythmia 5. UTI On review of prior records during his last admission he had a echocardiogram showed an EF of 50%, and last ICD check of the beginning of March showed no significant ventricular arrhythmias. He reportedly he had a negative PE workup at the beginning of February and an outside hospital per his prior discharge summary. Lab results were reviewed and interpreted as negative for acute pathology other than to indeterminate high sensitivity troponin at 14 each. Regular troponin T was normal. Chest x-ray was directly visualized and independently interpreted as negative for acute cardiopulmonary disease. We consulted with surgery who was successfully able to reduce the ostomy prolapse but felt he needed admission for preop clearance and eventual takedown of his ostomy. We discussed the case with internal medicine who also discussed directly with surgery as he was just admitted to medicine service and was still having chest pain. He would need of further cardiac rule out as he told me the chest pain was also reason for coming to the ED and was not necessarily just due to his ostomy prolapse. His symptoms were treated with aspirin and morphine and after discussion with internal medicine and surgery he was eventually admitted to internal medicine for further workup and treatment in stable condition. Signature: Jerry Casarez MD Date: 04/16/2017 Time: 12:57 PM Jerry Casarez MD 04/16/17 1301 ALLERGIES ALLERGIES DATE TYPE / NAME / CODE REACTION SEVERITY SOURCE CODE 03/31/2018 Drug hydrochlorothiazid Angioedema Unknown [place] Allergy/41 e/[id number](RX[facility] [id number]) Repository 03/31/2018 Drug ramipril/[id number] Angioedema Unknown [place] Allergy/41 5(RXNORM) Community [id number]([facility]) Repository 03/31/2018 Drug simvastatin/[id number] Angioedema Unknown [place] Allergy/41 3621(RXNORM) Community [id number]([facility]) Repository 03/31/2018 Drug diclofenac/[id number] Angioedema Unknown [place] Allergy/41 409(RXNORM) Community [id number]([facility]) Repository 03/31/2018 Drug atorvastatin/F0060 Angioedema Unknown [place] Allergy/41 68311(RXNORM) Community [id number]([facility]) Repository 03/31/2018 Drug moxifloxacin/F0060 Angioedema Unknown [place] Allergy/41 66544(RXNORM) Community [id number]([facility]) Repository 03/31/2018 Drug rosuvastatin/F0060 Angioedema Unknown [place] Allergy/41 28481(RXNORM) Community [id number]([facility]) Repository 03/31/2018 Drug ticagrelor/[id number] Shortness of Unknown [place] Allergy/41 611(RXNORM) breath Community [id number]([facility]) Repository 02/19/2018 DRUG ROSUVASTATIN OTHER: SEE C [facility] INGREDI/41 Other [place] [id number]( Repository [facility]) 08/09/2017 DRUG TICAGRELOR UNKNOWN [facility] INGREDI/41 Other [place] [id number]( Repository [facility]) 07/06/2017 DRUG OTHER [place]-3S UNKNOWN [facility] INGREDI/41 Other [place] 0500409( Repository OMED CT) 12/17/2016 DRUG/54252 ALTASEPTIC UNKNOWN [facility] 1003(SNOME Other [place] D CT) Repository 12/17/2016 DRUG ROSUVASTATIN Myalgia [facility] INGREDI/41 CALCIUM Other [place] 2627483( Repository OMED CT) 12/17/2016 DRUG/26959 AMILORIDE-HYDROCHL SWELLING [facility] 1003(SNOME OROTHIAZIDE Other [place] D CT) Repository 12/17/2016 DRUG RAMIPRIL SWELLING [facility] INGREDI/41 Other [place] 0637534( Repository OMED CT) 12/17/2016 DRUG SIMVASTATIN Myalgia [facility] INGREDI/41 Other [place] 1822959( Repository OMED CT) 12/17/2016 DRUG DICLOFENAC SODIUM UNKNOWN [facility] INGREDI/41 Other [place] 4653127( Repository OMED CT) NG/5814002 ROSUVASTATIN [facility] 06(SNOMED [facility]) Repository DRUG MOXIFLOXACIN SWELLING [facility] INGREDI/41 Other [place] 6318263(SN Repository OMED CT) NG/5807050 ALTASEPTIC [facility] 06(SNOMED [facility]) Repository NG/5971545 TICAGRELOR [facility] 06(SNOMED [facility]) Repository NG/4465636 ROSUVASTATIN [facility] 06(SNOMED CALCIUM [facility]) Repository NG/6142406 AMILORIDE-HYDROCHL [facility] 06(SNOMED OROTHIAZIDE [facility]) Repository NG/7550540 MOXIFLOXACIN [facility] 06(SNOMED [facility]) Repository NG/2672816 OTHER OMEGA-3S [facility] 06(SNOMED [facility]) Repository NG/5691889 RAMIPRIL [facility] 06(SNOMED [facility]) Repository NG/7890303 SIMVASTATIN [facility] 06(SNOMED [facility]) Repository NG/6912246 DICLOFENAC SODIUM [facility] 06(SNOMED [facility] CT) Repository ENCOUNTERS ENCOUNTERS ADMIT/DISCHARGE ACCOUNT NUMBER ADMITTING ENCOUNTER LOCATION SOURCE CLASS 04/13/2018/04/14/20 [id number] [facility], Ambulatory [address] Other [place] Repository 04/13/2018/04/14/20 [id number] [facility], Inpatient AKRON [facility] 18 [facility] MEDICAL Repository WHITMOREBuildi nRoom: 4120Bed: 04/13/2018/04/13/20 [id number] Emergency Building:E3R [place] 18 oom: 0016 [facility] Repository 04/13/2018 [id number] Ambulatory [address] [facility] Repository 04/06/2018/04/07/20 [id number] GIL, Ambulatory [address] Other [place] Repository 04/06/2018/04/07/20 [id number] [facility], Inpatient AKRON [facility] Repository WHITMOREBuildi ng:AKOURoom: ROUBed: 16 04/05/2018/04/05/20 [id number] Ambulatory UHCBuilding: [place] [address] TESARoom: [facility] GVCA5Qla: Repository [id number] 03/31/2018/03/31/20 [id number] Emergency [address] ding:ED Repository 03/25/2018 [id number] Ambulatory [address] [place] [address] Repository 03/24/2018/03/25/20 [id number] Ambulatory BuildinER [place] 18 oom: 2329 [facility] Repository 03/24/2018 [id number] Ambulatory [address] [place] [address] Repository 03/23/2018/03/24/20 [id number] Emergency [address] Repository 03/23/2018/03/24/20 [id number] Emergency [address] MEDICAL [facility]ository [facility]AKEDRoom: EMBed: 46 03/08/2018/03/10/20 [id number] FRANCHESCA, Inpatient [address] Encounter [facility] Repository 03/08/2018/03/10/20 [id number] MD FRANCHESCA Inpatient [address] MEDICAL Repository WHITMOREBuild nRoom: 4201Bed: 01 02/21/2018/02/22/20 [id number] Emergency Building:E2R [place] 18 oom: 0011 [facility] Repository 02/21/[id number] Repository 02/19/2018/02/20/20 [id number] Emergency [address] ding:ED Repository 02/17/2018 [id number] Ambulatory [address] [place] [address] Repository 02/16/2018/02/18/20 [id number] Inpatient Building:SCR [place] 18 Encounter oom: 2001 [facility] Repository 02/16/2018 [id number] Ambulatory [address] [place] [address] Repository 02/11/2018/02/12/20 [id number] Ambulatory [address] Repository 02/07/2018/02/13/20 [id number] CARY, Inpatient [address] Encounter [facility] Repository 02/02/2018/02/04/20 [id number] Ambulatory [address] Other [place] Repository 02/02/2018/02/04/20 [id number] Inpatient [address] MEDICAL Repository WHITMOREBuild ng:AKEDRoom: EMBed: 13 01/29/2018/01/30/20 [id number] Emergency Building:E4R [place] 18 oom: 0018 [facility] Repository 01/29/2018 [id number] Ambulatory [address] [place] [address] Repository 01/18/2018/01/20/20 [id number] Inpatient BuildinER [place] 18 Encounter oom: 2319 [facility] Repository 01/16/2018 [id number] Ambulatory [address] [place] [address] Repository 12/18/2017/12/19/19 [id number] Emergency Building:EIR [place] 18 oom: 0023 [facility] Repository 12/18/2017 [id number] Ambulatory [address] [place] [address] Repository 12/17/2017/12/18/19 [id number] Emergency [address] ding:ED Repository 12/14/2017 [id number] Ambulatory [address] [place] [address] Repository 12/11/2017/12/15/19 [id number] Inpatient Building:SCR [place] 18 Encounter oom: 2024 [facility] Repository 12/10/2017 [id number] Ambulatory [address] [place] [address] Repository 12/09/2017 [id number] Ambulatory [address] [place] [address] Repository 11/30/2017/12/03/19 [id number] NAMRATA, Inpatient [address] Encounter Clinic Other (RES) [place] Repository 11/30/2017/12/01/19 [id number] Emergency [address] Main [place] Repository 11/28/2017/11/29/19 [id number] Emergency [address] ding:ED Repository 11/26/2017 [id number] Emergency [facility] Repository ng:H.ED 11/26/2017/11/27/19 [id number] Ambulatory BuildinWR [place] 18 oom: 0030 [facility] Repository 11/26/2017 [id number] Ambulatory [address] [place] [address] Repository 11/23/2017/11/24/19 [id number] Emergency [address] ding:ED Repository 11/22/2017 [id number] Emergency [facility] Repository ng:H.ED 11/20/2017 [id number] Emergency [facility] Repository ng:H.ED 11/19/2017/11/20/19 [id number] Emergency Building:E4R [place] 18 oom: 0022 [facility] Repository 11/19/2017/11/20/19 [id number] Emergency [address] Repository 11/19/2017 [id number] Ambulatory [address] [facility] Repository 11/18/2017/11/19/19 [id number] Emergency [address] ding:ED Repository 11/18/2017/11/19/19 [id number] Emergency [address] Other [place] Repository 11/18/2017/11/19/19 [id number] Emergency AKRON [address] MEDICAL Repository [facility]:AKEDRoom: EDBed: 11/17/2017/11/18/19 [id number] Emergency [address] ding:ED Repository 11/11/2017/11/14/19 [id number] Fernie Segundo Inpatient [address] Repository ng:Cesar7MRoom: 1A808Lqw: 11/07/2017/11/09/19 [id number] Inpatient Building:SCR [place] 18 Encounter oom: 2022 [facility] Repository 11/07/2017 [id number] Ambulatory [address] [place] [address] Repository 11/06/2017 [id number] Ambulatory [address] [place] [address] Repository 11/05/2017/11/06/19 [id number] Emergency [address] ding:ED Repository 11/04/2017 [id number] Emergency [facility] Repository ng:Lali.ED 11/04/2017/11/05/19 [id number] Emergency [address] Repository 11/02/2017/11/03/19 [id number] Emergency [address] ding:ED Repository 11/01/2017/11/02/19 [id number] Emergency [address] ding:ED Repository 10/27/2017/10/28/19 [id number] Emergency [address] Repository 10/27/2017/10/28/19 [id number] Emergency Building:E4R [place] 18 oom: 0020 [facility] Repository 10/27/2017 [id number] Ambulatory [address] [place] [address] Repository 10/22/2017 [id number] Emergency [facility] Repository ng:H.ED 10/20/2017/10/21/19 [id number] Emergency Ebonie Ebonie[address] ding:ED Repository 10/19/2017/10/20/19 [id number] Inpatient Building:SCR [place] 18 Encounter oom: 2003 [facility] Repository 10/17/2017 [id number] Ambulatory [address] [place] [address] Repository 10/09/2017/10/11/19 [id number] Emergency [address] Repository 10/07/2017/10/08/19 [id number] Emergency BBuilding:ER [address] Repository 10/06/2017/10/07/19 [id number] Emergency BBuilding:ER [address] Repository 10/03/2017/10/04/19 [id number] Emergency ABuilding:ER [address] Repository 10/03/2017/10/04/19 [id number] Emergency Building:E2R [place] 18 oom: 0008 [facility] Repository 10/03/2017 [id number] Ambulatory [address] [place] [address] Repository 10/02/2017/10/03/19 [id number] Emergency [place] ding:ED Repository 09/30/2017 [id number] Emergency [facility] Repository ng:H.ED 09/24/2017/09/27/19 [id number] Ambulatory Building:SCR [place] 18 oom: 203 [facility] Repository 09/24/2017 [id number] Ambulatory [address] [place] [address] Repository 09/22/2017/09/25/19 [id number] SAMAN, Inpatient [place] [address] RATNA NELLY Encounter [facility] [place] Repository 09/22/2017/09/25/19 [id number] Rachana AHN. Inpatient [address] MEDICAL Repository [facility] nRoom: 2117Bed: 09/20/2017/09/21/19 [id number] Ambulatory [address] Repository 09/20/2017/09/21/19 [id number] BHAMA, Inpatient [place] [address] HANNAH Encounter [facility] Repository 09/19/2017/09/21/19 [id number] Emergency [address] ding:ED Repository 09/18/2017/09/19/19 [id number] Emergency [address] ding:ED Repository 09/16/2017/09/17/19 [id number] Emergency [address] ding:ED Repository 09/14/2017/09/15/19 [id number] Emergency [address] Repository 09/09/2017/09/12/19 [id number] STONE, Ambulatory [address] J [facility] Repository 09/09/2017/09/12/19 [id number] STONE, Inpatient AKRON [facility] 18 [address] [facility] MEDICAL Repository CENTERBuildi nRoom: 2110Bed: 09/01/2017/09/02/19 [id number] Emergency Building:E4R [place] 18 oom: 0021 [facility] Repository 09/01/2017 [id number] Ambulatory [address] [facility] Repository 08/28/2017/08/29/19 [id number] Emergency [address] Repository 08/16/2017/08/18/19 [id number] JOSE, Ambulatory [address] Repository 08/09/2017/08/13/19 [id number] QAHALEIGH VASQUES Inpatient [place] 18 LUIS E Encounter [facility] Repository 08/09/2017/08/13/19 [id number] QAVI, HALEIGH Inpatient AKRON [facility] 18 LUIS E [facility] MEDICAL Repository CENTERBuildi nRoom: 7104Bed: 08/01/2017/08/02/19 [id number] Ambulatory BuildinKR [place] 18 oom: 0011 [facility] Repository 08/01/2017 [id number] Ambulatory [address] [facility] Repository 07/30/2017/07/31/19 [id number] Ambulatory [address] Repository 07/30/2017/07/31/19 [id number] Ambulatory [address] Repository 07/30/2017/07/31/19 [id number] Ambulatory [address] Repository 07/21/2017/07/26/19 [id number] [facility], Inpatient [place] [address] QUSAY Encounter [facility] Repository 07/21/2017/07/26/19 [id number] [facility], Inpatient [facility] [address] [facility] MEDICAL Repository WHITMOREBuild nRoom: 9120Bed: 07/14/2017/07/15/19 [id number] Emergency [address] Repository 07/14/2017/07/15/19 [id number] Emergency [address] MEDICAL [facility] ng:AKEDBRoom : EDBed: 07/06/2017/07/10/19 [id number] Inpatient [place] [address] Encounter [facility] Repository 07/06/2017/07/10/19 [id number] IMCA Inpatient [place] [address] [facility] MEDICAL Repository WHITMOREBuildi nRoom: 5105Bed: 07/05/2017/07/06/[id number] 18 :ERRoom: [facility]0Bed: Repository BHER05 06/25/2017/06/25/19 [id number] Emergency [address] Repository 06/22/2017/06/23/19 [id number] Inpatient BuildinER [place] 18 Encounter oom: 3322 [facility] Repository 06/22/2017 [id number] Ambulatory [address] [place] [address] Repository 06/21/2017 [id number] Ambulatory [address] [place] [address] Repository 06/17/2017/06/19/19 [id number] Ro YOO Inpatient [place] 18 RIOS Encounter [facility] Repository 06/05/2017/06/05/19 [id number] Emergency [address] Repository 05/27/2017/05/28/19 [id number] Inpatient Building:SCR [place] 18 Encounter oom: 2010 [facility] Repository 05/25/2017 [id number] Ambulatory [address] [place] [address] Repository 05/16/2017/05/19/19 [id number] [facility], Inpatient [place] [address] QUSAY Encounter Clinic Other [place] Repository 05/16/2017/05/19/19 [id number] SYLMARDOUR, Inpatient ARRON [facility] 18 [address] Q[address] [facility] MEDICAL Repository [facility] 2118Bed: 05/13/2017/05/14/19 [id number] Ambulatory [address] Repository 05/12/2017/05/12/19 [id number] Emergency ABuilding:ER [address] Repository 05/09/2017/05/09/19 [id number] Emergency Building:E4R [place] 18 oom: 0022 [facility] Repository 05/09/2017 [id number] Ambulatory [address] [place] [address] Repository 05/03/2017/05/03/19 [id number] Emergency [place] 18 [facility] ding:ED Repository 04/29/2017/05/01/19 [id number] Inpatient Building:SCR [place] 18 Encounter oom: 2024 [facility] Repository 04/28/2017 [id number] Ambulatory [address] [place] [address] Repository 04/27/2017 [id number] Emergency [facility] Repository ng:H.ED 04/18/2017/04/18/20 [id number] Ambulatory [address] Main [place] Repository 04/18/2017/04/25/20 [id number] Ambulatory [address] Main [place] Repository 04/18/2017/05/10/19 [id number] Ambulatory [address] [place] Repository 04/18/2017/06/11/19 [id number] Ambulatory [address] Main [place] Repository 04/18/2017/04/18/20 [id number] Ambulatory [address] Main [place] Repository 04/15/2017/04/17/20 [id number] BRAYDEN PHAN Inpatient [address] Main [place] Repository PAYERS PAYERS ENCOUNTER GUARANTOR PAYER SUBSCRIBER SOURCE 04/13/2018 MAXX B BELLMANDOB: Primary MAXX B [facility] [id number] E Insurance:MEDICARE A AND [facility]: [facility] SARAH BPolicy Number: [id number] Repository [address], [place] [id number] [address]Qvs: (330) Date: [phone] (HP) 04/13/2018 Secondary Insurance:[place] [facility]XX B [facility] Number: [id number] Repository [id number] Date: 04/13/2018 MAXX B BELLMANDOB: Primary MAXX B Jones E Insurance:[facility] [address] [facility] [id number] [address] Number: 03 E Repository [address]Nny: (111) [id number] Date: [address] [phone] (HP) [address] [place] [address] 18164 04/13/2018 Secondary MAXX B Jones Insurance:MEDICAREPolicy BELLMANDOB: [facility] Number: [id number] [facility] [id number] 03 E Repository Date: [address] [place] [address] 04/13/2018 MAXX B BELLMANDOB: Primary MAXX B University E Insurance:MedicarePolicy BELLMANDOB: [facility] APT Number: [id number] Repository [address] [place] [address] [id number] 03 E [phone]: 330) Date:Plan Name:Mcare A [address] [phone] (HP) [address], [place] [address]Nmd: (HP) 04/13/2018 Secondary MAXX B University Insurance:[facility] Centery BELLMANDOB: Hospitals Number: [id number] Repository [id number] 03 E Date:Plan Name:Mcare B [address], [place] [address]Fhj: (HP) 04/06/2018 MAXX B BELLMANDOB: Primary MAXX B [facility] E Insurance:MEDICARE A AND BELLMANDOB: Health System [facility] BPolicy Number: [id number] Repository [address], [place] [id number] [address]Czx: (330) Date: [phone] (HP) 04/06/2018 Secondary Insurance:[facility]: Health System Number: [id number] Repository [id number] Date: 04/05/2018 MAXX B [place]LEMANDOB: Primary MAXX B [place] Insurance:MedicarePolicy BELLMANDOB: [facility] [address] Number: [id number] Repository [address] [place] [address] [id number] 03 E [id number]: (330) Date:Plan Name:Deepthi [address] [phone] (HP) [address] [place], [place] [address], [place] [id number]: (HP) 04/05/2018 Secondary MAXX B University Insurance:MedicarePolicy BELLMANDOB: Hospitals Number: [id number] Repository [id number] 03 E Date:Plan Name:Deepthi [address] [place] [address] [id number]: (HP) 04/05/2018 Tertiary MAXX B [place] Insurance:[facility]: [facility] [id number] Repository HealthPolicy Number: 03 [id number] Date:Plan Name:Health [address] [place], [place] [address], [place] [id number]: (HP) 03/31/2018 MAXX B [id number] Primary MAXX B Ebonie E [place] Insurance:MEDICARE PART [facility]: [facility] centerlu[facility] co A BPolic Number: [id number] [facility] [address]Uns: 330) [id number] Repository [phone] (HP) Date:2018-03-31 03/31/2018 Secondary Insurance:[facility] B [facility]: [facility] Number: [id number] [facility] [id number] Repository Date:[id number] SERVICE [id number] [place], [place] [address]RU: [phone] X2003 03/31/2018 Tertiary Insurance:SELF NOT GIVENUNK [facility]ANCE[facility] Number: Effective Hospital Date:2018-03-31 Repository 03/25/2018 MAXX B BELLMANDOB: Primary MAXX B University E Insurance:MedicareHospital for Special SurgeryMANDOB: [facility] [address] Number: [id number] Repository [address] [place] [address] [id number] 03 E [id number]: (227) Date:Plan Name[facility] [address] [phone] (HP) [address] [place] [address] [id number]: (HP) 03/25/2018 Secondary MAXX B University Insurance:MedicareBellevue HospitalOB: Hospitals Number: [id number] Repository [id number] 03 E Date:Plan Name:Deepthi Corrigan [facility] [address] [place] [address] [phone]: (HP) 03/25/2018 Tertiary MAXX B [place] Insurance:Veterans MAYVILLEMANDOB: [facility] [id number] Repository HealthPolicy Number: [id number] Date:Plan Name:Health [address] [place] [address] [phone]: (HP) 03/24/2018 MAXX B BELLMANDOB: Primary MAXX B Jones E Insurance:VETERANS [place]MANDOB: [facility] [address] ADMINISTRATIONPolic [id number] [address] Number: 03 E Repository [address]Eow: (952) [id number] Date: [address] [phone] (HP) [address], [place] [address] 03/24/2018 Secondary MAXX B Jones Insurance:MEDICAREPolicy BELLMANDOB: [facility] Number: [id number] [facility] [id number] 03 E Repository Date: [address], [place] [address] 03/24/2018 MAXX B BELLMANDOB: Primary MAXX B [place] E Insurance:MedicarePolicy BELLMANDOB: [facility] APT Number: [id number] Repository [place], [place] [id number] 03 E [phone]: (330) Date:Plan Name:[facility] Hospitalkeon [address] [facility] [phone] (HP) [address], [place] [address]Kew: (HP) 03/24/2018 Secondary MAXX B University Insurance:MedicarePolicy BELLMANDOB: Hospitals Number: [id number] Repository [id number] 03 E Date:Plan Name:[facility] Hospitalkeon Corrigan [facility] YUKONMERRYUTIfeoma [facility] [address], [place] [address]Olx: (HP) 03/24/2018 Tertiary MAXX B University Insurance:CommercialPolEast Orange General HospitalOB: [facility] cy Number: [id number] Repository [id number] 03 E Date:Plan Name[facility] [address], [place] [address]Llv: (HP) 03/23/2018 MAXX B BELLMANDOB: Primary MAXX B [facility] E Insurance:MEDICARE A AND BELLMANDOB: Health System [address] BPolicy Number: [id number] Repository 609[facility] [place]ALEE[facility], [place] [id number] [address]Zdb: (330) Date: [phone] (HP) 03/08/2018 MAXX B BELLMANDOB: Primary MAXX B [facility] E Insurance:MEDICARE A AND BELLMACKINAC STRAITS HOSPITALOB: [facility] [address] BPolicy Number: [id number] Repository [address], [place] [id number] [address]Upl: (330) Date: [phone] (HP) 02/21/2018 MAXX B BELLMANDOB: Primary MAXX B Jones E Insurance:[facility] APT [facility] [id number] [facility] [address] [place] [address] Number: 03 E Repository [address]Ikn: (884) [id number] Date: [facility] E [phone] (HP) [address], [place] [address] 02/21/2018 Secondary MAXX B Jones Insurance:MEDICAREPolicOhioHealth Grant Medical CenterMANDOB: [facility] Number: [id number] Hospital [id number] 03 E Repository Date: [facility] [address] [place] [address] 02/21/2018 MAXX BELLMANDOB: Primary MAXX University E Insurance:MedicarePolicy BELLMANDOB: [facility] APT Number: [id number] Repository [address] [place] [address] [id number] 03 E [address]Qme: (330) Date:Plan Name:[facility] Wali [facility] [address] [phone] (HP) [address] [place] [address] 085[address]Flu: (HP) 02/21/2018 Secondary MAXX University Insurance:MedicarePolicy MAYVILLEMANDOB: Hospitals Number: [id number] Repository [id number] 03 E Date:Plan Name:[facility] Hospitalkeon Corrigan [facility] [address] [place] [phone]: (HP) 02/21/2018 Tertiary MAXX University Insurance:CommercialPoli MAYVILLEMANDOB: [facility] cy Number: [id number] Repository [id number] 03 E Date:[facility] [address] [place] [address]Qpw: (HP) 02/19/2018 MAXX B [id number] Primary MAXX B Ebonie E [place] Insurance:MEDICARE PART BELLMANDOB: [place] A BPolic Number: [id number] [facility] [address]Sno: (330) [id number] Repository [phone] (HP) Date:2018-02-19 02/19/2018 Secondary Insurance:[place] MAXX Corrigan [facility] Community Number: [id number] [facility] [id number] Repository Date:[id number] SERVICE [id number] [place], [place] [address]JA: [phone] X2003 02/19/2018 Tertiary Insurance:[facility] Community Number: Effective Hospital Date:2018-02-19 Repository 02/17/2018 [facility]XX[facility]LEVEL[facility] CLINIC LUTHERAN HOSPITALMANDOB: Primary MAXX University E Insurance:MedicarePolicy BELLMANDOB: [facility] [address] Number: [id number] Repository [address] [place] [address] [id number] 03 E [phone]: 330) Date:Plan Name:[facility] [address] [phone] () [address] [place], [place] [address] 71698Ejf: (HP) 02/17/2018 Secondary [facility] Insurance:MedicarePolicy BELLMANDOB: Hospitals Number: [id number] Repository [id number] 03 E Date:[facility] [address] [place] [address] 628[address]Ipr: (HP) 02/17/2018 Tertiary MAXX University Insurance:[facility]: Hospitals Administration [id number] Repository HealthPolicy Number: [id number] Date:Plan Name:Health [address] [place] [address] 28411Xbb: (HP) 02/16/2018 MAXX B BELLMANDOB: Primary MAXX B Jones E Insurance:MEDICAREPolicy BELLMANDOB: [facility] APT Number: [id number] Hospital [address] [place] [address] [id number] 03 E Repository 20038Bpx: (330) Date: [address] [phone] (HP) [address], [place] [address] 02/16/2018 Secondary MAXX B Jones Insurance:MEDICAREPolicy BELLMANDOB: [facility] Number: [id number] Hospital [id number] 03 E Repository Date: [facility] [address] [address] [address], [place] [address] 02/16/2018 MAXX BELLMANDOB: Primary MAXX University E Insurance:MedicarePolicy BELLMANDOB: [facility]T Number: [id number] Repository [address], [place] [id number] 03 E 935[address]Syh: (330) Date:Plan Name:Deepthi [address] [phone] (HP) [address], [place] [address]Qnb: (HP) 02/16/2018 Secondary MAXX University Insurance:MedicarePolicy BELLMANDOB: [facility] Number: [id number] Repository [id number] 03 E Date:Plan Name:Deepthi Corrigan [address], [place] [address]Jsl: (HP) 02/16/2018 Tertiary MAXX University Insurance:[facility]: [facility] Administration [id number] Repository HealthPolicy Number: 03 [id number] Date:Plan Name:Health [address], [place] [address]Bag: (HP) 02/02/2018 MAXX B BELLMANDOB: Primary MAXX B [facility] E Insurance:MEDICARE A AND BELLMANDOB: [facility] BPolicy Number: [id number] Repository [address] [id number] [address]Jsl: (330) Date: [phone] (HP) 01/29/2018 MAXX B BELLMANDOB: Primary MAXX B Jones E Insurance:VETERANS MAYVILLEMANDOB: [facility] APT [facility] [id number] Hospital [address], [place] Number: 03 E Repository [address]Cng: (577) [id number] Date: [facility] [address] [address] [phone] (HP) [address], [place] [address] 01/29/2018 Secondary MAXX B Jones Insurance:MEDICAREPolicy MAYVILLEMANDOB: Memorial Number: [id number] Hospital [id number] 03 E Repository Date: [facility] [address], [place] [address] 01/29/2018 MAXX BELLMANDOB: Primary MAXX University E Insurance:MedicareBellevue HospitalOB: [facility] APT Number: [id number] Repository [address], [place] [id number] 03 E [address]Qzo: (330) Date:Plan Name:[facility] A [facility] [phone] () [address] [place] [address] 67[address]Zoi: (HP) 01/29/2018 Secondary MAXX University Insurance:MedicarePolicy MAYVILLEMANDOB: Hospitals Number: [id number] Repository [id number] 03 E Date:[facility]igan [facility] [address], [place] [address]Ytd: (HP) 01/29/2018 Tertiary MAXX University Insurance:CommercialPoli BELLMANDOB: [facility] cy Number: [id number] Repository [id number] 03 E Date:Plan Name[facility] [address], [place] [address]Aec: (HP) 01/18/2018 MAXX B BELLMANDOB: Primary MAXX B Jones E Insurance:VETERANS BELLMANDOB: [facility] APT [facility] [id number] [facility] [address] [place] [address], [place] Number: 03 E Repository [address]Qgn: (243) [id number] Date: [address] [phone] (HP) [address], [place] [address] 01/18/2018 Secondary MAXX B Jones Insurance:MEDICAREPolicy BELLMANDOB: [facility] Number: [id number] Hospital [id number] 03 E Repository Date: [address], [place] [address] 01/16/2018 MAXX BELLMANDOB: Primary MAXX University E Insurance:MedicarePolicy BELLMANDOB: [facility] APT Number: [id number] Repository [address], [place] [id number] 03 E [address]Qpt: (330) Date:Plan Name:Deepthi Keyes [facility] [address] [phone] (HP) [address], [place] [address]Krf: (HP) 01/16/2018 Secondary MAXX University Insurance:MedicarePolicy BELLMANDOB: Hospitals Number: [id number] Repository [id number] 03 E Date:Plan Name:Deepthi Corrigan [facility] [address], [place] [address]Tdf: (HP) 12/18/2017 MAXX B BELLMANDOB: Primary MAXX B Jones E Insurance:MEDICAREPolicy BELLMANDOB: [facility] APT Number: [id number] [facility] [address], [place] [id number] 03 E Repository [address]Cgu: (330) Date: [facility] [address] [phone] (HP) [address], [place] [address] 12/18/2017 Secondary MAXX B Jones Insurance:MEDICAREPolicy BELLMANDOB: [facility] Number: [id number] [facility] [id number] 03 E Repository Date: [facility] [address], [place] [address] 12/18/2017 Tertiary MAXX B Jones Insurance:VETERANS BELLMANDOB: [facility] [id number] Hospital Number: 03 E Repository [id number] Date: [address], [place] [address] 12/18/2017 MAXX BELLMANDOB: Primary MAXX University Insurance:MedicareBellevue HospitalOB: [facility] APT Number: [id number] Repository [address], [place] [id number] 03 E [address]Ppt: (330) Date:Plan Name:[facility] [address] [phone] (HP) [address], [place] [address]Onh: (HP) 12/18/2017 Secondary MAXX University Insurance:MedicareBellevue HospitalOB: Hospitals Number: [id number] Repository [id number] 03 E Date:Plan Name:Deepthi Corrigan [facility] [address], [place] [address]Alr: (HP) 12/18/2017 Tertiary MAXX University Insurance:CommercialPoli [facility]: [facility] cy Number: [id number] Repository [id number] 03 E Date:Plan Name[facility] [address], [place] [address]Tei: (HP) 12/17/2017 MAXX B [id number] Primary MAXX B [place] Insurance:MEDICARE PART [facility]: [facility] co Wali BPolic Number: [id number] Hospital [address]Vyi: ([phone]) [id number] Repository [phone] (HP) Date:2017-12-17 12/17/2017 Secondary Insurance:[place] MAXX GilbertLourdes Counseling CenterOB: Community Number: [id number] [facility] [id number] Repository Date:6222-85-38WQV SERVICE [id number] [place], [place] [address]HS: [phone] X2003 12/17/2017 Tertiary Insurance:[facility] Community Number: Effective Hospital Date:2017-12-17 Repository 12/14/2017 MAXX BELLMANDOB: Primary MAXX University E Insurance:MedicarePolicy BELLMANDOB: [facility] APT Number: [id number] Repository [address], [place] [id number] 03 E [address]Nit: (330) Date:Plan Name:[facility] [address] [phone] (HP) [address], [place] [address]Uxa: (HP) 12/14/2017 Secondary MAXX University Insurance:MedicarePolicy BELLMANDOB: Hospitals Number: [id number] Repository [id number] 03 E Date:Plan Name:[facility] Corrigan [facility] [address], [place] [address]Uzw: (HP) 12/14/2017 Tertiary [facility] Insurance:CommercialPoli BELLMANDOB: [facility] cy Number: [id number] Repository [id number] 03 E Date:[facility] [address], [place] [address]Vmg: (HP) 12/11/2017 MAXX B BELLMANDOB: Primary MAXX B Jones E Insurance:MEDICAREPolicy BELLMANDOB: [facility] [address]T Number: [id number] [facility] [address], [place] [id number] 03 E Repository [address]Emq: (330) Date: [facility] [address] [phone] (HP) [address] [address] 12/11/2017 Secondary MAXX B Jones Insurance:MEDICAREPolicy BELLMANDOB: [facility] Number: [id number] Hospital [id number] 03 E Repository Date: [facility] [address], [place] [address] 12/11/2017 Tertiary MAXX B Jones Insurance:VETERANS BELLMANDOB: [facility] [id number] Hospital Number: 03 E Repository [id number] Date: [facility] [address], [place] [address] 12/10/2017 MAXX BELLMANDOB: Primary MAXX University E Insurance:MedicarePolicy BELLMANDOB: [facility] APT Number: [id number] Repository [address], [place] [id number] 03 E [address]Mhg: (330) Date:Plan Name:[facility] Keyes [facility] E [phone] (HP) [address], [place] [address]Dif: (HP) 12/10/2017 Secondary MAXX University Insurance:MedicarePolicCentra Bedford Memorial HospitalOB: Hospitals Number: [id number] Repository [id number] 03 E Date:Plan Name:[facility] Hospital[facility] [address], [place] [address]Dnu: (HP) 12/10/2017 Tertiary MAXX University Insurance:CommercialMemorial Hermann Pearland HospitalOB: [facility] cy Number: [id number] Repository [id number] 03 E Date:Plan Name:[facility] [address], [place] [address]Zfs: (HP) 12/09/2017 MAXX BELLMANDOB: Primary [facility] E Insurance:MedicarePolicy BELLMANDOB: [facility] APT Number: [id number] Repository [address], [place] [id number] 03 E [address]Kjt: (330) Date:Plan Name:Deepthi [address] [phone] (HP) [address], [place] [address]Ncx: (HP) 12/09/2017 Secondary MAXX University Insurance:MedicarePolicy MAYVILLEMANDOB: Hospitals Number: [id number] Repository [id number] 03 E Date:Plan Name:[facility] [address], [place] [address]Fuh: (HP) 12/09/2017 Tertiary MAXX University Insurance:[facility]King[facility] Center[facility]: Hospitals cy Number: [id number] Repository [id number] 03 E Date:Plan Name:[facility] [address], [place] [address]Foa: () 11/28/2017 MAXX B [id number] Primary MAXX B Ebonie E [place] Insurance:MEDICARE PART [facility]: [place] A [facility] Number: [id number] [facility] [address]Jbu: (393) [id number] Repository [phone] () Date:2017-11-28 11/28/2017 Secondary Insurance:[place] MAXX B Ebonie [facility]: Community Number: [id number] [facility] [id number] Repository Date:2910-52-91YLR SERVICE [id number] [place], [place] [address]GD: [phone] X2003 11/28/2017 Tertiary Insurance:SELF NOT [facility]IVENCommunity [facility] Number: Effective Hospital Date:2017-11-28 Repository 11/26/2017 MAXX B [id number] Primary MAXX B [facility] Insurance:MEDICAREPolicy [place] [address], Number: [place]ository [place] [address]Hkl: 330 [id number] [phone] () Date:2009[birth year]02-28 [address]JG CODE FH712RDJEJFWB, [place] [address]KF: 11/26/2017 Secondary MAXX B [facility] Insurance:[facility] Number: Repository [id number] Date: [facility]:Fee Service mailstop [place], [place] [address]GV: 7306 11/26/2017 MAXX B BELLMANDOB: Primary MAXX B Jones E Insurance:MEDICAREPolicy BELLMANDOB: [facility] [address]T Number: [id number] [address] [id number] 03 E Repository [address]Saf: (330) Date: [facility] [address] [phone] (HP) [address] [place] [address] 11/26/2017 Secondary MAXX B Jones Insurance:MEDICAREPolicy BELLMANDOB: [facility] Number: [id number] [facility] [id number] 03 E Repository Date: [facility] [address] [place] [address] 11/26/2017 MAXX BELLMANDOB: Primary MAXX University E Insurance:MedicarePolicy BELLMANDOB: [facility] APT Number: [id number] Repository [address] [place] [address] [id number] 03 E [address]Vnd: (330) Date:Plan Name:Deepthi Keyes [address] [facility] [phone] (HP) [address] [place] [address]Xvu: (HP) 11/26/2017 Secondary MAXX University Insurance:MedicarePolicy BELLMANDOB: Hospitals Number: [id number] Repository [id number] 03 E Date:Plan Name:Deepthi [address] [place] [address]Tvq: (HP) 11/23/2017 MAXX Shekhar [id number] Primary MAXX B [facility] Insurance:MEDICARE PART BELLMANDOB: [facility] Centerluz [facility] BPencompass health rehabilitation [facility] Number: [id number] [facility] [address]Iho: (330) [id number] Repository [phone] (HP) Date:2017-11-23 11/23/2017 Secondary Insurance:[place] MAXX [facility]: [facility] Number: [id number] [facility] [id number] Repository Date:6870-06-32UNJ SERVICE [id number] [place], [place] [address]PR: [phone] X2003 11/23/2017 Tertiary Insurance:SELF NOT GIVENUNK [place] [facility] Number: Effective Hospital Date:2017-11-23 Repository 11/22/2017 MAXX B [id number] Primary Insurance:Zachery [facility] E [facility] [address], Number: [place] [address]Ami: (791) [id number] [phone] (HP) Date: FirstHealthTT:Fee Service mailstop 136[facility], [place] [address]AT: 7346 11/22/2017 Secondary MAXX B [facility] Insurance:MEDICAREPolicy [place]UNK [facility] [place] Number: Repository [id number] Date:2009[birth year]02-28 [address] [place], [place] [address]CA: 11/20/2017 MAXX B [id number] Primary Insurance:Zachery Rodriguez Medical E [facility] [address], [place]: [place] [address]Sfc: 330 [id number] [phone] (HP) Date: [facility]'S HospitalKashN:Fee Service mailstop 136[facility], [place] [address]KK: 7371 11/20/2017 Secondary MAXX B [facility] Insurance:MEDICAREPolicy [place] Number: Repository [id number] Date:2009[birth year]02-28 [address]WUWS CODE CD733NJOLOSZG, [place] [address]JW: 11/19/2017 MAXX B BELLMANDOB: Primary MAXX B Jones E Insurance:MEDICAREPolicy BELLMANDOB: [facility] APT Number: [id number] [address] [id number] 03 E Repository [address]Slk: (330) Date: [facility] [phone] (HP) [address], [place] [address] 11/19/2017 Secondary MAXX B Jones Insurance:MEDICAREPolicy BELLMANDOB: [facility] Number: [id number] Hospital [id number] 03 E Repository Date: [facility] [address], [place] [address] 11/19/2017 MAXX BELLMANDOB: Primary MAXX University Insurance:MedicarePolicy BELLMANDOB: [facility] [address] Number: [id number] Repository [address], [place] [id number] 03 E [address]Twd: (168) Date:Plan Name:[facility] A [address] [phone] () [address], [place] [address]Lwd: () 11/19/2017 Secondary MAXX University Insurance:MedicarePolicy BELLMANDOB: Hospitals Number: [id number] Repository [id number] 03 E Date:Plan Name:[facility] Cor[facility]igan [facility] [address], [place] [address]Aeu: (HP) 11/19/2017 Tertiary MAXX University Insurance:[facility]: [facility] cy Number: [id number] Repository [id number] 03 E Date:Plan Name:[facility] [address] [place] [address]Xjz: () 11/18/2017 MAXX B [id number] Primary MAXX B [place] Insurance:MEDICARE PART MAYVILLEMANDOB: [place] A BPolicy Number: [id number] Hospital [address]Srg: (823) [id number] Repository [phone] (HP) Date:2017-11-18 11/18/2017 Secondary Insurance:[place] MAXX B ViennaLourdes Counseling CenterOB: Community Number: [id number] [facility] [id number] Repository Date:2401-90-42WKS SERVICE [id number] [place], [place] [address]AI: [phone] X2003 11/18/2017 Tertiary Insurance:SELF NOT GIVENUNK [place] PAY [facility] Community Number: Effective Hospital Date:2017-11-18 Repository 11/18/2017 MAXX B BELLMANDOB: Primary [facility]XX B [facility] Insurance:MEDICARE A AND BELLMANDOB: [facility] BPolicy Number: [id number] Repository [address] [place] [address] [id number] [address]Cdb: 330) Date: [phone] () 11/18/2017 Secondary Insurance:[place] MAXX B [facility] Number: [id number] Repository [id number] Date: 11/17/2017 MAXX B [id number] Primary MAXX B Ebonie E [place] Insurance:MEDICARE PART MAYVILLEMANDOB: [place] BPolicy Number: [id number] Hospital [address]Dtu: 330 [id number] Repository [phone] () Date:2017-11-17 11/17/2017 Secondary Insurance:SELF NOT GIVENUNK [place] PAY [facility] Number: Effective Hospital Date:2017-11-17 Repository 11/11/2017 MAXX B [id number] Primary Insurance:Zachery MAXX [facility] Medical E [facility] [address], Number: [place]ository [place] [address]Zvk: 330 [id number] [phone] () Date: [facility]'S HospitalKash:Fee Service mailstop 136[place], [place] [address]IT: 7374 11/11/2017 Secondary MAXX B [facility] Insurance:MEDICAREPolicy [place]UNK [place] Number: Repository [id number] Date:2009[birth year]02-28 [address] [place]255[place] [address]BG: 11/07/2017 MAXX B BELLMANDOB: Primary MAXX B Jones E Insurance:MEDICAREPolicy BELLMANDOB: [facility] [address] Number: [id number] Hospital [address], [place] [id number] 03 E Repository [address]Bqn: (330) Date: [address] [phone] (HP) [address], [place] [address] 11/07/2017 Secondary MAXX B Jones Insurance:MEDICAREPolicy BELLMANDOB: [facility] Number: [id number] Hospital [id number] 03 E Repository Date: [address], [place] [address] 11/07/2017 Tertiary MAXX B Jones Insurance:VETERANS MAYVILLEMANDOB: [facility] [id number] Hospital Number: 03 E Repository [id number] Date: [address], [place] [address] 11/07/2017 [facility]ITALMANDOB: [facility] E Insurance:MedicarePolicy BELLMANDOB: [facility] APT Number: [id number] Repository [address], [place] [id number] 03 E [address]Rkd: (330) Date:Plan Name:[address]thi [address] [phone] (HP) [address], [place] [address]Gsy: (HP) 11/07/2017 [facility] Insurance:MedicarePolicy BELLMANDOB: Hospitals Number: [id number] Repository [id number] 03 E Date:Plan Name[facility] [address], [place] [address]Wqp: (HP) 11/07/2017 Tertiary [facility] Insurance:Veterans MAYVILLEMANDOB: [facility] [id number] Repository HealthPolicy Number: [id number] Date:Plan Name:Health [address], [place] [address]Gty: (HP) 11/06/2017 MAXX BELLMANDOB: Primary MAXX University E Insurance:MedicarePolicy BELLMANDOB: [facility] KAVITHA BARRETO [address] Number: [id number] Repository [address] [id number] 03 E [address]Alz: (516) Date:Plan Name:Deepthi [address] [phone] () [address] [place], [place] [address]E[place], [place] [address]Bxj: () 11/06/2017 Secondary MAXX University Insurance:MedicarePolicy BELLMANDOB: Hospitals Number: [id number] Repository [id number] Date:Plan Name:Deepthi [address], [place] [address]Tpa: () 11/05/2017 MAXX B [id number] Primary MAXX B Ebonie E [place] Insurance:MEDICARE PART [facility]: [place] [facility] Number: [id number] [facility] [address]Ohx: (165) [id number] Repository [phone] () Date:2017-11-05 11/05/2017 Secondary Insurance:SELF NOT GIVENUNK Ebonie PAY INSURANCEMount Nittany Medical Centery [facility] Number: Effective Hospital Date:2017-11-05 Repository 11/04/2017 MAXX B [id number] Primary Insurance:[facility] MAXX [facility] Medical E [facility] [address], Number: [place]ository [place] [address]Xku: (378) [id number] [phone] () Date: [facility] Conrad:Fee Service mailstop [address], [place] [address]NB: 7306 11/04/2017 Secondary MAXX B [facility] Insurance:MEDICAREPolicy [place]LL[place]UNK [place] Number: Repository [id number] Date:2009[birth year]02-28 [address] CODE TC043NFQZIVZBFREM[place] [address]PY: 11/02/2017 MAXX B [id number] Primary MAXX B [place] Insurance:MEDICARE PART BELLMANDOB: [facility] Hospitalfemi co Wali BPolicy Number: [id number] Hospital [address]Zgb: (843) [id number] Repository [phone] (HP) Date:2017-11-02 11/02/2017 Secondary Insurance:SELF NOT GIVENUNK Ebonie PAY INSURANCEMount Nittany Medical Centery Community Number: Effective Hospital Date:2017-11-02 Repository 11/01/2017 MAXX B [id number] Primary MAXX B [place] Insurance:MEDICARE PART BELLMANDOB: [place] Wali BPolicy Number: [id number] Hospital [address]Ilx: (279) [id number] Repository [phone] (HP) Date:2017-11-01 11/01/2017 Secondary Insurance:SELF NOT GIVENUNK Ebonie PAY INSURANCEMount Nittany Medical Centery [facility] Number: Effective Hospital Date:2017-11-01 Repository 10/27/2017 MAXX B BELLMANDOB: Primary MAXX B Jones E Insurance:MEDICAREPolACMC Healthcare System GlenbeighMANDOB: [facility] APT Number: [id number] [address] [id number] 03 E Repository [address]Fpf: (330) Date: [facility] [phone] (HP) [address] [place] [address] 10/27/2017 Secondary MAXX B Jones Insurance:MEDICAREPolicy BELLMANDOB: [facility] Number: [id number] [facility] [id number] 03 E Repository Date: [facility] [address] [place] [address] 10/27/2017 MAXX BELLMANDOB: Primary MAXX University E Insurance:MedicarePolicy MAYVILLEMANDOB: [facility] APT Number: [id number] Repository [address] [place] [address] [id number] 03 E [address]Jwb: (330) Date:Plan Name:Deepthi Keyes [facility] [phone] (HP) [address] [address]Mve: (HP) 10/27/2017 Secondary MAXX University Insurance:MedicareBellevue HospitalOB: Hospitals Number: [id number] Repository [id number] 03 E Date:Plan Name:Deepthi Corrigan [facility] [address], [place] [address]Eqq: (HP) 10/22/2017 MAXX B [id number] Primary Insurance:Zachery MAXX B [facility] [address], Number: [place]ository [place] [id number]: [phone] [id number] [phone] (HP) Date: [facility] Sloan:Fee Service mailstop [address] [place] [phone]: [phone] 10/22/2017 Secondary MAXX B [facility] Medical Insurance:MEDICAREPolicy [facility] [place] Number: Repository [id number] Date:2009[birth year]28 [address] [id number], [place] [address]ZM: 10/20/2017 MAXX B [id number] Primary MAXX B [place] Insurance:[facility]ICARE [facility]: [facility] [place] co A BPolicy Number: [id number] [address]Urq: 330 [id number] Repository [phone] () Date:2017-10-20 10/20/2017 Secondary Insurance:SELF NOT GIVENUNK [place] [facility] Number: Effective [facility] Date:2017-10-20 Repository 10/19/2017 MAXX B BELLMANDOB: Primary MAXX B Jones E Insurance:MEDICAREPolicy BELLMANDOB: [facility] APT Number: [id number] Hospital [address], [place] [id number] 03 E Repository [address]666Dnm: (518) Date: [address] [phone] (HP) [address], [place] [address] 10/19/2017 Secondary MAXX Shekhar Jones Insurance:MEDICAREPolicy BELLMANDOB: [facility] Number: [id number] Hospital [id number] 03 E Repository Date: [facility] [address], [place] [address] 10/17/2017 MAXX BELLMANDOB: Primary [facility] E Insurance:MedicarePolicy BELLMANDOB: [facility] APT Number: [id number] Repository [address], [place] [id number] 03 E [address]Mld: (330) Date:Plan Name:Deepthi [address] [phone] (HP) [address], [place] [address]Zbk: (HP) 10/17/2017 Secondary [facility] University Insurance:MedicarePolicy BELLMANDOB: Hospitals Number: [id number] Repository [id number] 03 E Date:Plan Name:Deepthi Corrigan [facility] E [address], [place] [address]Kwk: () 10/07/2017 MARILUZ B BELLMANDOB: Primary [facility] E Insurance:MEDICARE PART MAYVILLEMANDOB: [facility] [address] BPolicy Number: [id number] Repository [address], [place] [id number] 03 E [address]Ojc: (330) Date:2017-10-07 - [address] [phone] (HP) [id number] APT Name:PMEDICARE [place] [address]Dns: 7[address]LX: (HP) (WP) 10/06/2017 MARILUZ B BELLMANDOB: Primary MARILUZ B [facility] E Insurance:MEDICARE PART BELLMANDOB: [facility] [address] APT BPolicy Number: [id number] Repository [address] [place], [place] [address], [place] [id number] 03 E [address]Tlf: (330) Date:2017-10-06 - [address] [phone] (HP) [id number] APT Name:PMEDICARE [place] [address]Jgy: [phone]: (HP) (WP) 10/03/2017 MARILUZ B BELLMANDOB: Primary MARILUZ B [facility] E Insurance:MEDICARE PART MAYVILLEMANDOB: [facility] ReadingIfeoma [address] BPolicy Number: [id number] Repository [address] [place] [address] [id number] 03 E [address]Myq: (330) Date:2017-10-03 - [address] [phone] (HP) [id number] APT Name:PMEDICARE [place] [address]Iik: [address]HJ: (HP) (WP) 10/03/2017 MAXX B BELLMANDOB: Primary MAXX B Jones E Insurance:MEDICAREPolicy BELLMANDOB: [facility] APT Number: [id number] [address] [id number] 03 E Repository [address]Sjb: (330) Date: [facility] [phone] (HP) [address] [place] [address] 10/03/2017 Secondary MAXX B Jones Insurance:MEDICAREPolicy BELLMANDOB: [facility] Number: [id number] [facility] [id number] 03 E Repository Date: [facility] [address], [place] [address] 10/03/2017 MAXX BELLMANDOB: Primary MAXX University E Insurance:MedicarePolicy BELLMANDOB: [facility] APT Number: [id number] Repository [address], [place] [id number] 03 E [address]Rhr: (366) Date:Plan Name:Deepthi [address] [phone] (HP) [address], [place] [address]Uca: () 10/03/2017 Secondary MAXX University Insurance:MedicarePolicy BELLMANDOB: Hospitals Number: [id number] Repository [id number] 03 E Date:Plan Name:Deepthi [address] [place], [place] [address]Mrf: (HP) 10/02/2017 MAXX B [id number] Primary MAXX B [place] Insurance:MEDICARE PART [facility]: [place] A olic Number: [id number] Hospital [address]Kxj: (448) [id number] Repository [phone] () Date:2017-10-02 10/02/2017 Secondary Insurance:SELF NOT GIVENUNK [place] PAY [facility] Number: Effective Hospital Date:2017-10-02 Repository 09/30/2017 MAXX B [id number] Primary Insurance:Zachery MAXX Corrigan [facility] [address] BARRETO [facility] [address], Number: [place]ository [place] [address]Chh: [phone]) [id number] [phone] () Date: [facility]Sherrie:Fee Service mailstop [address], [place] [address]MI: 7306 09/30/2017 Secondary MAXX B [facility] Insurance:MEDICAREPolicy BELLMANUNK [place] Number: Repository [id number] Date:2009-02-28 [address] CODE EC059[place]XXCCBSP[place] [address]RU: 09/24/2017 MAXX B BELLMANDOB: Primary MAXX B Jones [id number] E Insurance:MEDICAREPolicy BELLMANDOB: [facility] APT Number: [id number] Hospital [address], [place] [id number] 03 E Repository [address]Tcx: (330) Date: [facility] [phone] (HP) [address], [place] [address] 09/24/2017 Secondary MAXX B Jones Insurance:MEDICAREPolicy BELLMANDOB: [facility] Number: [id number] Hospital [id number] 03 E Repository Date: [facility] [address] [address] 09/24/2017 Tertiary MAXX B Jones [facility] [id number] Hospital Number: 03 E Repository [id number] Date: [address], [place] [address] 09/24/2017 MAXX BELLMANDOB: Primary MAXX University E Insurance:MedicarePolicy BELLMANDOB: [facility] APT Number: [id number] Repository [address], [place] [id number] 03 E [address]Quz: (330) Date:Plan Name:Deepthi Keyes [facility] [phone] (HP) [address], [place] [address]Yoc: (HP) 09/24/2017 Secondary MAXX University Insurance:MedicarePolicy BELLMANDOB: Hospitals Number: [id number] Repository [id number] 03 E Date:[facility] [address], [place] [address]Yws: (HP) 09/22/2017 MAXX B BELLMANDOB: Primary MAXX B [facility] E Insurance:MEDICARE A [facility]OB: [facility] Number: [id number] Repository [facility] [id number] [address]Sbz: (330) Date: [phone] (HP) 09/19/2017 MAXX B [id number] Primary MAXX B [place] E [place] Insurance:MEDICARE PART BELLMANDOB: [place] Wali BPolicy Number: [id number] Hospital [address]Cee: 330 [id number] Repository [phone] () Date:2017-09-19 09/19/2017 Secondary Insurance:SELF NOT GIVENUNK [place] PAY INSURANCEPolicy Community Number: Effective Hospital Date:2017-09-19 Repository 09/18/2017 MAXX B [id number] Primary MAXX B [place] E [place] Insurance:MEDICARE PART BELLMANDOB: [facility] BPolicy Number: [id number] Hospital [address]Nor: 330 [id number] Repository [phone] () Date:2017-09-18 09/18/2017 Secondary Insurance:[place] MAXX [facility]: Community Number: [id number] Hospital [id number] Repository Date:8740-11-76QXM SERVICE [id number] [place], [place] [address]VZ: [phone] X2003 09/18/2017 Tertiary Insurance:SELF NOT GIVENUNK [place] PAY INSURANCEPolicy Community Number: Effective Hospital Date:2017-09-18 Repository 09/16/2017 MAXX B [id number] Primary MAXX B [place] Insurance:MEDICARE PART MAYVILLEMANDOB: [facility] BPolicy Number: [id number] Hospital [address]Ucg: 330 [id number] Repository [phone] () Date:2017-09-16 09/16/2017 Secondary Insurance:[place] MAXX [facility]: Community Number: [id number] Hospital [id number] Repository Date:4911-12-92GPN SERVICE [id number] [place], [place] [address]LH: [phone] X2003 09/16/2017 Tertiary Insurance:SELF NOT GIVENUNK [place] PAY INSURANCEPolicy Community Number: Effective Hospital Date:2017-09-16 Repository 09/09/2017 MAXX B BELLMANDOB: Primary MAXX B [facility] E Insurance:MEDICARE A AND BELLMACKINAC STRAITS [facility]OSPITALOB: [facility] Number: [id number] Repository [address] [place] [address] [id number] [phone]: (330) Date: [phone] (HP) 09/09/2017 Secondary Insurance:[place] [facility]XX B [facility] Number: [id number] Repository [id number] Date: 09/01/2017 MAXX B BELLMANDOB: Primary MAXX B Jones E Insurance:MEDICAREPolicy BELLMANDOB: [facility] APT Number: [id number] [address] [id number] 03 E Repository [address]Zwc: (330) Date: [facility] [address] [phone] (HP) [address]T [address] [place] [address] 09/01/2017 Secondary MAXX B Jones Insurance:MEDICAREPolicy BELLMANDOB: [facility] Number: [id number] [facility] [id number] 03 E Repository Date: [facility] [address], [place] [address] 09/01/2017 MAXX BELLMANDOB: Primary MAXX University E Insurance:MedicarePolicy BELLMANDOB: [facility] APT Number: [id number] Repository [address] [place] [address] [id number] 03 E [address]Rsn: (330) Date:Plan Name:Deepthi Wali [address] [phone] (HP) [address], [place] [address]Qtg: (HP) 09/01/2017 Secondary MAXX University Insurance:MedicarePolicy BELLMANDOB: [facility] Number: [id number] Repository [id number] 03 E Date:Plan Name:Deepthi [address], [place] [address]Vcn: (HP) 08/09/2017 MAXX B BELLMANDOB: Primary MAXX B [facility] E Insurance:MEDICARE A AND BELLMANDOB: [facility]ITALolicy Number: [id number] Repository [address], [place] [id number] [address]Rgy: (330) Date: [phone] (HP) 08/01/2017 MAXX B BELLMANDOB: Primary MAXX B Jones E Insurance:MEDICAREPolCentraState Healthcare SystemOB: [facility] APT Number: [id number] [address] [id number] 03 E Repository [address]Umd: (330) Date: [facility] [phone] (HP) [address], [place] [address] 08/01/2017 Secondary MAXX B Jones Insurance:MEDICAREPolicy BELLMANDOB: [facility] Number: [id number] Hospital [id number] 03 E Repository Date: [address], [place] [address] 08/01/2017 MAXX BELLMANDOB: Primary MAXX University E Insurance:MedicarePolicy BELLMANDOB: [facility] APT Number: [id number] Repository [address], [place] [id number] 03 E [address]Yoi: (330) Date:Plan Name:Deepthi Keyes [facility] [phone] (HP) [address], [place] [address]Cvl: (HP) 08/01/2017 Secondary MAXX University Insurance:MedicarePolACMC Healthcare System GlenbeighMANDOB: [facility] Number: [id number] Repository [id number] 03 E Date:Plan Name:Deepthi Corrigan [address] [place], [place] [address]Muv: (HP) 07/21/2017 MAXX B BELLMANDOB: Primary MAXX B [facility] E Insurance:MEDICARE A AND BELLMANDOB: [facility] BPolicy Number: [id number] Repository [place] [id number] [address]Ecv: (330) Date: [phone] (HP) 07/14/2017 MAXX B BELLMANDOB: Primary MAXX B [facility] E Insurance:MEDICARE A AND BELLMANDOB: [facility] BPolicy Number: [id number] Repository CarrieQUAIL RUN BEHAVIORAL HEALTHIRWINCO[place], [place] [id number] [address]Jpa: (330) Date: [phone] (HP) 07/06/2017 MAXX B BELLMANDOB: Primary MAXX B [facility] E Insurance:MEDICARE A AND BELLMANDOB: [facility] BPolicy Number: [id number] Repository [facility], [place] [id number] [address]Znh: (330) Date: [phone] (HP) 07/05/2017 MAXX BELLMANDOB: Primary MAXX University E Insurance:MedicarePolicy BELLMANDOB: [facility] APT Number: [id number] Repository [address] [place] [address] [id number] 03 E [address]Flt: (330) Date:Plan Name:Deepthi Keyes [facility]PITALIfeoma [facility] [phone] (HP) [address]T [address] [place] [address]Zwa: (HP) 07/05/2017 Secondary MAXX University Insurance:MedicarePolicy BELLMANDOB: Hospitals Number: [id number] Repository [id number] 03 E Date:Plan Name:Deepthi Corrigan [facility] [address] [place] [address]Cum: (HP) 06/22/2017 MAXX B BELLMANDOB: Primary MAXX B [place] E Insurance:MEDICAREKingman Regional Medical CentericOhioHealth Grant Medical CenterMANDOB: [facility] APT Number: [id number] [address] [place] [id number] 03 E Repository [address]Twy: (330) Date: [address] [phone] (HP) [address], [place] [address] 06/22/2017 Secondary MAXX Shekhar Jones Insurance:MEDICAREPolicy BELLMANDOB: [facility] Number: [id number] [facility] [id number] 03 E Repository Date: [address], [place] [address] 06/22/2017 MAXX MAYVILLEMANDOB: [facility] E Insurance:MedicarePolicy BELLMANDOB: [facility] [address] APT Number: [id number] Repository [address] [place] [address] [id number] 03 E [address]56[address]Rey: (330) Date:Plan Name:Deepthi [address] [phone] (HP) [address], [place] [address]Fho: (HP) 06/22/2017 Secondary [facility] University Insurance:MedicarePolicy BELLMANDOB: Hospitals Number: [id number] Repository [id number] 03 E Date:Plan Name:Deepthi [address], [place] [address]Gnh: (HP) 06/21/2017 MAXX BELLMANDOB: [facility] E Insurance:MedicarePolicy BELLMANDOB: [facility] CenterTIARABANNER [facility]ENTERCHRI[facility] APT Number: [id number] Repository [address] [place] [address] [id number] 03 E [address]Hyb: (330) Date:Plan Name:Horaciore Wali [address] [phone] (HP) [address], [place] [address]Cgo: (HP) 06/21/2017 Secondary [facility] Insurance:MedicarePolicy BELLMANDOB: Hospitals Number: [id number] Repository [id number] 03 E Date:Plan Name:Horaciore Shekhar [address], [place] [address]Npd: (HP) 05/27/2017 MAXX B BELLMANDOB: Primary MAXX B [place] E Insurance:MEDICAREBellevue HospitalOB: [facility] APT Number: [id number] [facility] [address] [place] [address] [id number] 03 E Repository [address]Jxg: (330) Date: [facility] [phone] (HP) [address] [place] [address] 05/27/2017 Secondary MAXX B Jones Insurance:MEDICAREPolicy BELLMANDOB: [facility] Number: [id number] Hospital [id number] 03 E Repository Date: [facility] [address], [place] [address] 05/25/2017 MAXX BELLMANDOB: Primary MAXX University E Insurance:MedicarePolicy BELLMANDOB: [facility] APT Number: [id number] Repository [address] [place] [address] [id number] 03 E [address]Hrn: (330) Date:Plan Name:Deepthi Keyes [facility] [phone] (HP) [address] [place] [address] 38[address]Cam: (HP) 05/25/2017 Secondary MAXX University Insurance:MedicarePolicy BELLMANDOB: Hospitals Number: [id number] Repository [id number] 03 E Date:Plan Name:Deepthi Corrigan [facility] YUKONMERRYUTIfeoma E [address] [place] [address]Hyz: (HP) 05/16/2017 MAXX B BELLMANDOB: Primary MAXX B [facility] E Insurance:MEDICARE A AND [facility]IOB: [facility] Number: [id number] Repository [address] [place] [address] [id number] [address]Rjo: (330) Date: [phone] (HP) 05/12/2017 MARILUZ B BELLMANDOB: Primary MARILUZ B [facility] E Insurance:MEDICARE PART BELLMANDOB: [facility] APT BPolicy Number: [id number] Repository [address] [place] [address] [id number] 03 E [address]Yfp: (330) Date:2017-05-12 - [address] [phone] (HP) 1435-48-67Oela APT Name:[facility] [place] [address]Dzm: [phone]: (HP) (WP) 05/09/2017 MAXX B BELLMANDOB: Primary MAXX B Jones E Insurance:MEDICAREPolicy MAYVILLEMANDOB: [facility] APT Number: [id number] [address] [id number] 03 E Repository [address]Usm: (330) Date: [facility] [address] [phone] (HP) [address]T [address] [place] [address] 05/09/2017 Secondary MAXX B Jones Insurance:MEDICAREPolicy MAYVILLEMANDOB: [facility] Number: [id number] Hospital [id number] 03 E Repository Date: [facility] [address] [place] [address] 05/09/2017 MAXX BELLMANDOB: Primary MAXX University E Insurance:MedicarePolicy MAYVILLEMANDOB: [facility] APT Number: [id number] Repository [address] [place] [address] [id number] 03 E [address]Mol: (330) Date:Plan Name:Deepthi Wali [address] [phone] (HP) [address] [place] [address]Ixp: (HP) 05/09/2017 Secondary MAXX University Insurance:MedicarePolicy BELLMANDOB: Hospitals Number: [id number] Repository [id number] 03 E Date:Plan Name:Deepthi Shekhar [address] [place] [address] 230[address]Gqv: (HP) 05/03/2017 Maxx [id number] E Primary Maxx [facility] Insurance:MEDICARE PART BellmanDOB: [facility] rony [place] olicy Number: [id number] [facility] [address]Ore: (364) [id number] Repository [phone] (HP) Date:2017-05-03 05/03/2017 Secondary Insurance:[facility] ClevelandPolicy BellmanDOB: [facility] Number: [id number] [facility] [id number] Repository Date:3406-95-38SWL SERVICE [id number] [place], [place] [address]PS: [phone] X2003 05/03/2017 Tertiary Insurance:SELF NOT [facility]ENM[facility]illa [facility] PAY INSURANCEPolic Community Number: Effective Hospital Date:2017-05-03 Repository 04/29/2017 MAXX B BELLMANDOB: Primary MAXX B Jones E Insurance:MEDICAREPolicy BELLMANDOB: [facility] APT Number: [id number] [place] [address] [id number] 03 E Repository [address]Xsj: (319) Date: [facility] [phone] () [address] [place] [address] 04/29/2017 Secondary MAXX B Jones Insurance:MEDICAREPolshenandoah medical center BELLMANDOB: [facility] Number: [id number] [facility] [id number] 03 E Repository Date: [facility] [address] [place] [address] 04/28/2017 MAXX BELLMANDOB: Primary MAXX University E Insurance:MedicarePolACMC Healthcare System GlenbeighMANDOB: [facility] Number: [id number] Repository [place], [place] [id number] 03 E [address]Unh: (458) Date:Plan Name:Deepthi Keyes [address] [phone] () [place], [place] [address]Uxx: (HP) 04/28/2017 Secondary [facility] Insurance:MedicarePolicy BELLMANDOB: Hospitals Number: [id number] Repository [id number] E Date:Plan Name:Deepthi CHENTIARAMERRYCHRISTIANO [place], [place] [address]Uen: (HP) 04/27/2017 MAXX [id number] Primary Insurance:[facility] E [address] [facility] [place] [address], Number: [place]ository [place] [address]Yfl: (873) [id number] [phone] () Date: Ad Martines:Fee Service mailstop [address], [place] [address]TP: 7321 04/27/2017 Secondary [facility] Insurance:MEDICAREPolicy BELLMANUNK [facility] [place] Number: Repository [id number] Date:2009[birth year]02-28 [address]HXRB CODE PH245GOFPUXPHFREM[place], [place] [address]GV:
== END 2018-03-31 23:03 | disposition home or self-care (01) ==
PROVIDERS: Emergency Provider Emergency Medicine
DX: K94.09 Other complications of colostomy (principal); R07.89 Other chest pain; Z95.1 Presence of aortocoronary bypass graft; Z95.5 Presence of coronary angioplasty implant and graft; G47.33 Obstructive sleep apnea (adult) (pediatric); J44.9 Chronic obstructive pulmonary disease, unspecified; E78.00 Pure hypercholesterolemia, unspecified; I10 Essential (primary) hypertension; I48.91 Unspecified atrial fibrillation; I25.2 Old myocardial infarction; Z72.0 Tobacco use
CPT/HCPCS: 71045; 80048; 84484; 85025; 93005; 96361; 96374; 96375; 96376; 99284; J7030; A4216; J2405

== ENCOUNTER 2018-04-20 20:22 | Observation (INO) | payer MEDICARE, SELFPAY ==
[2018-04-20] VITALS (8 sets, daily range): BP systolic 133–205; BP diastolic 71–119; PULSE 60–69; RESP 16–21; TEMP 36.6; O2SAT 93–99; BMI 293.7
--- NOTE | 2018-04-20 20:43 | ED.DCSUM_ITS ---
- ER Visit Summary Date of Service: 04/20/18 Chief Complaint: Chest pain History of Present Illness: The patient is a 67 M who presents for 1 hour of chest pain located in the substernal region described as sharp and aching. Patient states it radiates into his back and is improved if he remains still. He has mild shortness of breath. No fever, cough, URI symptoms, urinary symptoms. He does have prolapse of his stoma from his colostomy that also occurred 1 hour at the time of chest pain onset. Patient has history of coronary artery disease status post triple bypass surgery. He takes a baby aspirin daily. He is a smoker. Physical Examination: Vital signs: afebrile, hypertensive, no hypoxia on room air General: well nourished, well developed, appears uncomfortable Skin: warm, dry, no rash, no pallor HEENT: normocephalic and atraumatic; PERRL, EOMI, moist mucous membranes Cardiovascular: regular rate and rhythm without murmurs, pacemaker noted in left upper chest, mid sternal scar, well-healed, no peripheral edema, 2+ pulses all distal extremities Respiratory: No increased work of breathing, lungs are clear to auscultation bilaterally, no rales, rhonchi or wheezing Abdominal: Abdomen is soft, large prolapsed intestine through the right colostomy stoma, tender to palpation, pink and moist, no duskiness, still outputing stool, MSK: Moves all extremities, no deformities, normal strength Neuro: Awake and alert, oriented ?4. No facial droop, sensation and motor f unction intact and symmetric Test Results: Abnormal Lab Results 04/20/18 04/20/18 04/20/18 21:45 21:45 21:45 WBC 10.0 RBC 4.76 Hgb 15.0 Hct 44.2 MCV 92.9 MCH 31.5 MCHC 33.9 RDW 14.3 RDW Differential 47.3 H Plt Count 275 MPV 10.3 Immature Gran % (Auto) 0.100 Neut % (Auto) 68.7 Lymph % (Auto) 21.6 [place] % (Auto) 7.7 Eos % (Auto) 1.6 Baso % (Auto) 0.3 Absolute Neuts (auto) 6.8 Absolute Lymphs (auto) 2.15 Total Counted Not Reportable PT 14.2 INR 1.1 APTT 31.5 Sodium 139 Potassium 5.2 H Chloride 102 Carbon Dioxide 29.0 Anion Gap 8 BUN 14 Creatinine 1.13 Estim Creat Clear Calc 62.21 Est GFR (MDRD) Af Amer 83 Est GFR (MDRD) Non-Af 69 BUN/Creatinine Ratio 12.4 Glucose 106 Calcium 9.7 Total Bilirubin 0.50 AST 35 ALT 39 Alkaline Phosphatase 85 Troponin I < 0.015 Total Protein 7.5 Albumin 3.7 Globulin 3.8 Albumin/Globulin Ratio 1.0 Lipase 70 L Clinical Impression(s) from Imaging Studies Acute Abdomen Series 04/20/18 21:54 IMPRESSION: Nonspecific bowel gas pattern. Electronically Signed: Ana Javed MD at 22:23 EST Tel , Service support , Medications Given Sodium Chloride () 1,000 mls @ 250 mls/hr IV .Q4H [facility] Last Admin: 04/20/18 22:15 Dose: 250 mls/hr Discontinued Medications Aspirin (Aspirin, Baby) 324 mg PO X1 STA Stop: 04/20/18 20:40 Last Admin: 04/20/18 21:14 Dose: 324 mg Morphine Sulfate () 4 mg IV X1 ONE Stop: 04/20/18 20:40 Last Admin: 04/20/18 21:08 Dose: 4 mg Morphine Sulfate () 8 mg IM X1 ONE Stop: 04/20/18 21:25 Last Admin: 04/20/18 21:29 Dose: 8 mg Nitroglycerin (Nitrostat) 0.4 mg SUBLINGUAL Q5M LINDY Stop: 04/20/18 20:56 Last Admin: 04/20/18 21:26 Dose: 0.4 mg Admin: 04/20/18 21:20 Dose: 0.4 mg Admin: 04/20/18 21:15 Dose: 0.4 mg Ondansetron HCl (Zofran) 4 mg IV X1 ONE Stop: 04/20/18 20:42 Last Admin: 04/20/18 21:08 Dose: 4 mg Ondansetron HCl (Zofran) 8 mg PO X1 ONE Stop: 04/20/18 23:12 Last Admin: 04/20/18 23:15 Dose: 8 mg Emergency Department Course and Treatment: Patient has significant cardiac history and presents with substernal chest pain for 1 hour with associated shortness of breath and nausea. Patient also concurrently has prolapse of his intestines through his colostomy stoma. Prior chart review shows that patient has presented with similar complaints multiple times. However there is no cardiac workup noted for the patient in his records that would be indicative of recent cardiac rule out. Patient received nitro and morphine, with improvement of his discomfort secondary to his stoma, but he will continue to complain of the chest discomfort. EKG showed sinus rhythm, first-degree block, with no ischemic changes, similar to prior EKGs. Troponin negative. Potassium very mildly elevated at 5.2, with no EKG changes. Otherwise no lab abnormalities. Abdominal series showed no sign of infiltrates in the chest and no sign of an obstructive bowel gas pattern. Patient received Zofran for nausea and additional morphine for pain. His prolapsed intestine through the stoma was easily reducible, and would slowly pop back out, but remain pink, well-perfused, with normal stool output and no sign of strangulation or incarceration. Because patient does have significant cardiac history and based on his age, his heart score puts him in the moderate risk range for ACS. Patient will be admitted for chest pain rule out. Patient was discussed with Dr. Christianson for admission observation status to the PCU. Upon reevaluation, patient's hypertension present on initial evaluation had greatly improved. 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 It may contain incorrect words, spelling, and punctuation that were not noted in review of the chart prior to signing ED Disposition - Plan for ED Patient: Chief Complaint: Chest Pain [facility]: [facility] [Primary [facility] Provider] -
[2018-04-20] MEDS: Morphine 4 MG/ML Syringe IV (21:08)
[2018-04-20] MEDS: Ondansetron 4 MG/2 ML Vial IV (21:08)
[2018-04-20] MEDS: Aspirin 81 MG TAB.CHEW 324 MG PO (21:14)
[2018-04-20] MEDS: morphine 10 MG/ML Syringe 8 MG IM (21:29)
--- NOTE | 2018-04-20 21:54 | RAD_ITS ---
STUDY: X-RAY - ACUTE ABDOMINAL SERIES REASON FOR EXAM: Male, 67 years old. Chest pain with abdominal pain. TECHNIQUE: Single view of the chest. Supine, 3 view(s) of the abdomen were obtained. COMPARISON: March 31, 2018 FINDINGS: There is no new focal consolidation. There is stable eventration of the left hemidiaphragm. There is a dual-lead pacer device in place. There are sternotomy wires in place. The cardiac silhouette is within normal limits. Normal mediastinum and irene. Normal visualized pulmonary arteries. Normal visualized aortic arch and descending thoracic aorta. There is an ostomy noted within the right abdomen. There is a nonspecific bowel gas pattern. There are diffuse degenerative changes of the visualized lumbar spine. RAD/Acute Abdomen Inc Chest IMPRESSION: Nonspecific bowel gas pattern. Electronically Signed: Ana Javed MD at 22:23 EST Tel , Service support ,
[2018-04-20 21:57] LABS: Absolute Lymphocyte Count 2.15 X10^3/ul (0.83-4.51); Absolute Neutrophil Count 6.8 X10^3/uL (2.0-7.7); Basophil# 0.03 X10^3/uL; Basophil% 0.3 % (0-1); Eosinophil# 0.16 X10^3/uL; Eosinophils% 1.6 % (0-5); Hematocrit 44.2 % (40-54); Lymphocyte # 2.15 X10^3/ul (4.0); Lymphocyte % 21.6 % (19-41); Mean Corp Hgb Conc 33.9 g/gl (32-36); Mean Corpuscular Hgb 31.5 pg (27.0-32.0); Mean Corpuscular Volume 92.9 fL (80-94); Mean Platelet Vol. 10.3 fl (6.2-12.0); Monocyte# 0.77 X10^3/uL; Monocyte% 7.7 % (0-10); Neutrophil # 6.83 X10^3/uL (2.7-7.7); Neutrophil % 68.7 % (47-70); POSITIVE COUNT NO; POSITIVE DIFFERENTIAL NO; POSITIVE MORPHOLOGY NO; Platelet Count 275 K/mm3 (150-450); RBC Distribution Width CV 14.3 % (11.6-14.6); RBC Distribution Width SD 47.3 fl (35.1-43.9); Red Blood Count 4.76 M/mm3 (4.6-6.2)
[2018-04-20 22:04] LABS: International Normalized Ratio 1.1; Partial Thromboplast Time 31.5 Seconds (24.1-36.2); Prothrombin Time (Protime)PT. 14.2 SECONDS (11.7-14.9)
[2018-04-20] MEDS: 0.9% Normal Saline 1,000 ML 250 ML IV (22:15)
[2018-04-20 22:21] LABS: AST(SGOT) 35 U/L (15-37); Alanine Aminotransfer ALT/SGPT 39 U/L (16-61); Albumin, Serum 3.7 g/dL (3.2-5.0); Alkaline Phosphatase 85 U/L (45-117); Anion Gap 8 (5-15); BUN 14 mg/dL (7-18); BUN/Creat Ratio 12.4 RATIO (10-20); Calcium,Total 9.7 mg/dL (8.5-10.1); Chloride 102 mmol/L (98-107); Creatinine, Serum 1.13 mg/dL (0.70-1.30); EST Glomerular Filtration Rate 69 mL/min (>60); Est Glom Filt Rate - Afr Amer 83 mL/min (>60); Estimated Creatinine Clearance 62.21 ml/min; Globulin 3.8 g/dL (2.2-4.2); Glucose 106 mg/dL (74-106); Lipase 70 U/L (73-393); Potassium 5.2 mmol/L (3.5-5.1); Protein, Total 7.5 g/dL (6.4-8.2); Sodium Level 139 mmol/L (136-145)
[2018-04-20] MEDS: Ondansetron 8 MG Tablet PO (23:15)
--- NOTE | 2018-04-20 23:32 | HP.PCM_ITS ---
History of Present Illness Date of Admission: 04/20/18 Chief Complaint: chest pain The patient is a 67 year old M with past medical history of CAD status post CABG and stents x4, arrythmia s/p pacemaker placement, diverticulosis status post colectomy and colostomy bag placement and hypertension. He was admitted through the ED on 04/20/2018 with a complaint of chest pain which started around 8 PM on the night of presentation. Chest pain was pressure-like and sharp at the same time, episodic, aggravated by exertion and relieved by rest. He had assisted lightheadedness and dizziness and some shortness of breath. He also admitted to fever and chills but did have a cough. He also complained of prolapse of his colostomy with chest pain. He denied any history of recent travel or weight loss or any history of PE or DVT. Vitals in the ED was significant for elevated blood pressure 157/72 and was saturating 95% on 2 L of oxygen. CBC was unremarkable and BMP was significant for potassium of 5.2. He did admit to eating a lot of oranges and bananas at home. Initial troponin was negative and EKG showed no acute ST changes. He had an abdominal x-ray which showed nonspecific bowel gas pattern. The prolapsed colostomy was successfully reduced in the ED. He is been admitted to be managed for chest pain to rule out ACS. [] Past Medical History Allergies atorvastatin Allergy (Verified 04/20/18 20:31) Angioedema diclofenac [From Voltaren] Allergy (Verified 04/20/18 20:31) Angioedema hydrochlorothiazide Allergy (Verified 04/20/18 20:31) Angioedema moxifloxacin Allergy (Verified 04/20/18 20:31) Angioedema ramipril Allergy (Verified 04/20/18 20:31) Angioedema rosuvastatin [From Crestor] Allergy (Verified 04/20/18 20:31) Angioedema simvastatin Allergy (Verified 04/20/18 20:31) Angioedema ticagrelor [From Brilinta] Allergy (Verified 04/20/18 20:31) Shortness of breath Home Medications: Ambulatory Orders Medication Instructions Recorded Albuterol Inhaler [Ventolin Hfa 2 puff INHALATION Q6H PRN PRN 12/15/16 (SP)] Aspirin E.C. [Ecotrin] 81 mg PO DAILY@0800 12/15/16 Furosemide [Lasix] 40 mg PO DAILY PRN 12/15/16 Gabapentin [Neurontin] 600 mg PO QHS 12/15/16 Losartan Potassium [Cozaar] 100 mg PO DAILY 12/15/16 Metoprolol(XL)Succ [Toprol Xl 100 mg PO QHS 12/15/16 (Beta Jennifer)] Multivitamin,Therapeutic [Thera] 1 each PO DAILY 12/15/16 Nitroglycerin [Nitrostat] 0.4 mg SL Q5M PRN 12/15/16 Pravastatin [Pravachol] 40 mg PO QHS 12/15/16 Quetiapine Fumarate [Seroquel] 400 mg PO QHS 12/15/16 Vitamin B Complex/Folic Acid 0.4 mg PO QHS 12/15/16 [Super B Maxi Complex Caplet] Ondansetron [Zofran Odt] 4 mg PO Q8H PRN PRN #10 tablet 12/20/16 Amlodipine [Norvasc] 10 mg PO DAILY 12/31/16 Surgical History: - - colectomy s/p colostomy, pacemaker insertion Psychiatric History: No pertinent psych hx Lives: Alone Smoking Status: Current every day smoker Tobacco Use: Cigarettes, Pipe Alcohol: None Drugs: None - *Family History Paternal History Items: High Cholesterol, Heart Disease, Hypertension Maternal History Items: No pertinent history Review of Systems Constitutional: Denies: Chills, Fever, Malaise, Weakness, Weight Change, Fatigue Eyes: Denies: Blurred vision HEENT: Denies: Head Aches, Sinus Congestion, Sinus Drainage Cardiovascular: Reports: Chest Pain, Chest Pressure. Denies: Chest Tightness, Edema, Heaviness, Light Headedness, Orthopnea, Palpitations, Paroxysmal Noc. Dyspnea, Syncope Respiratory: Reports: Shortness of breath upon exertion. Denies: Cough, Shortness of Breath, Shortness of breath at rest, Sputum production Gastrointestinal: Denies: Abdominal Pain, Nausea, Vomiting Genitourinary: Denies: Dysuria Musculoskeletal: Denies: Joint Pain, Joint Tenderness Skin: Denies: Rash, Wounds Neurological: Denies: Numbness, Tingling, Focal weakness Psychiatric: Denies: Anxiety, Depression, Homicidal Ideations, Suicidal Ideations Hematologic/ Lymphatic: Denies: Easy Bruising, Easy Bleeding VTE Information - Inpt Only VTE Present on Admission: No VTE Pharm Prophylaxis ordered?: Yes - Physical Exam General: Alert, Oriented x3, Cooperative, No apparent distress HEENT: Atraumatic, PERRLA, EOMI, Normocephalic Oral: Moist Mucosa Neck: Supple, No JVD, Negative Carotid Bruits Lungs: Clear to auscultation, Normal air movement, No rhonchi, No wheeze, No rales Cardiovascular: Regular rate, Regular Rhythm, Normal S1, Normal S2, No murmurs Abdomen: Bowel Sounds Present, Soft, Non Tender, Non-Distended, No Hepato- splenomegaly, - - has colostomy bag filled with formed stool Extremities: No clubbing, No cyanosis, No edema, Capillary Refill Less than 3 Seconds Skin: No rashes, No breakdown Musculoskeletal: No Tenderness to Palpation of Joints or Extremities Lymphatic: No Cervical, Supraclavicular, or Inguinal Adenopathy Neurological: Cranial nerves II-XII grossly intact, Neuro grossly intact, Motor Exam 5/5 strength throughout Psych/Mental Status: Normal Affect, Appropriate, Alert and oriented to time, place, person, mood and affect Vital Signs Temp Pulse Resp BP Pulse Ox 97.8 F 60 18 157/72 H 95 04/20/18 20:23 04/20/18 23:05 04/20/18 23:05 04/20/18 23:05 04/20/18 23:05 Oxygen Flow Rate (L/min) 2 Oxygen Delivery Method Nasal Cannula Weight: 1931 lb 14.571 oz Body Mass Index (BMI) 293.7 Laboratory Tests Past 24 Hrs 04/20/18 04/20/18 04/20/18 21:45 21:45 21:45 WBC 10.0 RBC 4.76 Hgb 15.0 Hct 44.2 MCV 92.9 MCH 31.5 MCHC 33.9 RDW 14.3 RDW Differential 47.3 H Plt Count 275 MPV 10.3 Immature Gran % (Auto) 0.100 Neut % (Auto) 68.7 Lymph % (Auto) 21.6 [place] % (Auto) 7.7 Eos % (Auto) 1.6 Baso % (Auto) 0.3 Absolute Neuts (auto) 6.8 Absolute Lymphs (auto) 2.15 Total Counted Not Reportable PT 14.2 INR 1.1 APTT 31.5 Sodium 139 Potassium 5.2 H Chloride 102 Carbon Dioxide 29.0 Anion Gap 8 BUN 14 Creatinine 1.13 Estim Creat Clear Calc 62.21 Est GFR (MDRD) Af Amer 83 Est GFR (MDRD) Non-Af 69 BUN/Creatinine Ratio 12.4 Glucose 106 Calcium 9.7 Total Bilirubin 0.50 AST 35 ALT 39 Alkaline Phosphatase 85 Troponin I < 0.015 Total Protein 7.5 Albumin 3.7 Globulin 3.8 Albumin/Globulin Ratio 1.0 Lipase 70 L Diagnostic Data Acute Abdomen Series 04/20/18 21:54 IMPRESSION: Nonspecific bowel gas pattern. Electronically Signed: Ana Javed MD at 22:23 EST Tel , Service support , Assessment/Plan 67-year-old male presenting with a complaint of chest pain 1. Chest pain rule out ACS * initial troponin negative. Initial EKG showed no acute ST changes * admit to PCU with telemetry * cycle troponins * for stress test on Sunday * PO aspirin 81mg daily, SL nitroglycerin prn * on statin, will continue 2. Hyperkalemia * K was 5.2 on admission; says he eats a lot of bananas and oranges, which could have contributed to hyperkalemia * currently asymptomatic; EKG showed no acute changes * will give PO kayexalate 15gram once 3. Hypertension * poorly controlled. * BP at time of review was in 170s systolic * says he's compliant with his meds nad has taken them today * on amlodipine 10mg daily, losartan 100mgd ailya nd metoprolol 100mg qhs * IV hydralazine prn 4. CAD status post CABG and stents * Has had 4 stents placed last of which was about a year ago. Patient cannot remember where he had the stents placed. Had a CABG in 2005. * On aspirin 81 mg daily and statin. * 5. History of arrhythmia status post pacemaker placement: stable. will monitor 6. Status post colectomy and colostomy bag placement: * colostomy was prolapsed on admission,a nd was successfully reduced in ED * abdominal xray showed nonspecific abdominal gas pattern * will monitor * DVT prophylaxis: heparin Code Visit OBSV E&M: 75773 Initial observation care L3
--- NOTE | 2018-04-20 23:35 | CPS ---
CALLED BY NURSE FOR REPEAT EKG FOR CONTINUED CHEST PAIN. UPON ENTRANCE TO ROOM DR. ROMERO INFORMED RT THAT HIS CHEST PAIN IS NOT DIFFERENT PRIOR TO ARRIVAL AND THE EKG CAN WAIT UNTIL SHE IS FINISHED EVALUATING HIM. RN AND ED PHYSICIAN AWARE.
[2018-04-21] VITALS (9 sets, daily range): BP systolic 125–160; BP diastolic 64–73; PULSE 60–69; RESP 14–18; TEMP 36.5–36.9; O2SAT 95–97; BMI 28.7; BMI 293.7
[2018-04-21] MEDS: Acetaminophen 325 MG Tablet 650 MG PO ×2 (01:26→10:11)
[2018-04-21] MEDS: oxyCODONE 5 MG Tablet 10 MG PO ×2 (01:26→10:11)
[2018-04-21] MEDS: Sodium Polystyrene Sulfonate 15 GM/60 ML UDC PO (01:27)
[2018-04-21] MEDS: Gabapentin 600 MG Tablet PO (02:58)
[2018-04-21] MEDS: QUEtiapine 100 MG Tablet 400 MG PO (02:59)
[2018-04-21 03:44] LABS: Absolute Lymphocyte Count 2.71 X10^3/ul (0.83-4.51); Absolute Neutrophil Count 6.8 X10^3/uL (2.0-7.7); Basophil# 0.02 X10^3/uL; Basophil% 0.2 % (0-1); Eosinophil# 0.25 X10^3/uL; Eosinophils% 2.4 % (0-5); Hematocrit 42.3 % (40-54); Hemoglobin 14.3 g/dl (13.0-16.5); Lymphocyte # 2.71 X10^3/ul (4.0); Lymphocyte % 25.8 % (19-41); Mean Corp Hgb Conc 33.8 g/gl (32-36); Mean Corpuscular Hgb 31.5 pg (27.0-32.0); Mean Corpuscular Volume 93.2 fL (80-94); Mean Platelet Vol. 10.1 fl (6.2-12.0); Monocyte# 0.74 X10^3/uL; Neutrophil # 6.77 X10^3/uL (2.7-7.7); Neutrophil % 64.3 % (47-70); Platelet Count 260 K/mm3 (150-450); RBC Distribution Width CV 14.5 % (11.6-14.6); RBC Distribution Width SD 47.5 fl (35.1-43.9); Red Blood Count 4.54 M/mm3 (4.6-6.2); White Blood Count 10.5 K/mm3 (4.4-11.0)
[2018-04-21 03:53] LABS: POSITIVE COUNT NO; POSITIVE DIFFERENTIAL NO; POSITIVE MORPHOLOGY NO
[2018-04-21 04:15] LABS: Anion Gap 8 (5-15); BUN 14 mg/dL (7-18); BUN/Creat Ratio 12.6 RATIO (10-20); Calcium,Total 9.1 mg/dL (8.5-10.1); Chloride 105 mmol/L (98-107); Creatinine, Serum 1.11 mg/dL (0.70-1.30); EST Glomerular Filtration Rate 70 mL/min (>60); Est Glom Filt Rate - Afr Amer 85 mL/min (>60); Estimated Creatinine Clearance 63.33 ml/min; Glucose 160 mg/dL (74-106); Potassium 3.4 mmol/L (3.5-5.1); Sodium Level 142 mmol/L (136-145)
[2018-04-21 05:50] LABS: Magnesium 1.8 mg/dL (1.6-2.6)
--- NOTE | 2018-04-21 09:52 | CON.PCM_ITS ---
Reason for Consult Date of Consultation: 04/21/18 Reason for Consultation: stoma prolapse History of Present Illness: The patient is a 67 year old M who was treated with a transverse loop colostomy for perforated diverticulitis. the patient has a complex medical history of coronary disease status post coronary bypass 10 years previously and multiple stent placements along with pacemaker placement. he has a history of COPD uses BiPAP and continues to smoke daily. He underwent a presumed transverse loop colostomy in July 2016. 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 He has no signs of bowel obstruction with the stomal prolapse. He has been present in our emergency department in the past to have this reduced. The patient has frequent visits to multiple emergency departments due to chest pain, falls, and stomal prolapse. I noted at least 15 admissions in the [facility] system this year and to numerous to count emergency department visits. He had been transferred to colorectal surgery at [facility] for consideration of stoma takedown. Due to the lack of obstructive symptoms, the patient's medical comorbidities and poor adherence to plan treatment including no-shows to many visits, it was concluded that risks of takedown exceed the benefits. His last ER visits were noted to be 3 and 6 days prior to admission to [place]. he presents to [facility] with complaint of chest pain and again stomal prolapse. The stoma was able to be reduced in the emergency department.Abdominal x-ray obtained demonstrates no abnormal bowel gas pattern. The patient is currently resting comfortably with his BiPAP mask on area the patient's stoma bag is quite distended from air without signs of significant prolapse currently. the patient denies abdominal pain to me Past Medical History Allergies atorvastatin Allergy (Verified 04/21/18 00:28) Angioedema diclofenac [From Voltaren] Allergy (Verified 04/21/18 00:28) Angioedema hydrochlorothiazide Allergy (Verified 04/21/18 00:28) Angioedema moxifloxacin Allergy (Verified 04/21/18 00:28) Angioedema ramipril Allergy (Verified 04/21/18 00:28) Angioedema rosuvastatin [From Crestor] Allergy (Verified 04/21/18 00:28) Angioedema simvastatin Allergy (Verified 04/21/18 00:28) Angioedema ticagrelor [From Brilinta] Allergy (Verified 04/21/18 00:28) Shortness of breath Home Medications: Ambulatory Orders Medication Instructions Recorded Albuterol Inhaler [Ventolin Hfa 2 puff INHALATION Q6H PRN PRN 12/15/16 (SP)] Aspirin E.C. [Ecotrin] 81 mg PO DAILY@0800 12/15/16 Furosemide [Lasix] 40 mg PO DAILY PRN 12/15/16 Gabapentin [Neurontin] 600 mg PO QHS 12/15/16 Losartan Potassium [Cozaar] 100 mg PO DAILY 12/15/16 Metoprolol(XL)Succ [Toprol Xl 100 mg PO QHS 12/15/16 (Beta Jennifer)] Multivitamin,Therapeutic [Thera] 1 each PO DAILY 12/15/16 Nitroglycerin [Nitrostat] 0.4 mg SL Q5M PRN 12/15/16 Pravastatin [Pravachol] 40 mg PO QHS 12/15/16 Quetiapine Fumarate [Seroquel] 400 mg PO QHS 12/15/16 Vitamin B Complex/Folic Acid 0.4 mg PO DAILY 12/15/16 [Super B Maxi Complex Caplet] Ondansetron [Zofran Odt] 4 mg PO Q8H PRN PRN #10 tablet 12/20/16 Amlodipine [Norvasc] 10 mg PO DAILY 12/31/16 Hydrocodone/Acetaminophen 2 tab PO Q6H 04/21/18 [Hydrocodone-Acetamin 5-325 mg] Surgical History: - - colectomy s/p colostomy, pacemaker insertion Psychiatric History: No pertinent psych hx Lives: Alone Smoking Status: Current every day smoker Tobacco Use: Cigarettes, Pipe Alcohol: None Drugs: None - *Family History Paternal History Items: High Cholesterol, Heart Disease, Hypertension Maternal History Items: No pertinent history - Physical Exam General: Alert, Oriented x3 Lungs: Clear to auscultation, Diminished Cardiovascular: Regular rate, Regular Rhythm, - - distant Abdomen: Soft, Non Tender, - - stoma bag in place held in place with belt. Stoma bag very distended from bypass air. Visual inspection reveals no significant stomal prolapse Vital Signs Temp Pulse Resp BP Pulse Ox 98.4 F 66 18 159/66 H 95 04/21/18 06:07 04/21/18 07:06 04/21/18 06:20 04/21/18 06:07 04/21/18 06:20 Oxygen Flow Rate (L/min) 2 Oxygen Delivery Method CPAP Weight: 85.7 kg Body Mass Index (BMI) 28.7 Intake and Output for Last 24 Hours 04/19/18 04/20/18 04/21/18 23:59 23:59 23:59 Intake Total 240 / 240 Output Total 100 / 100 Balance 140 / 140 Laboratory Tests Past 24 Hrs 04/20/18 04/20/18 04/20/18 21:45 21:45 21:45 WBC 10.0 RBC 4.76 Hgb 15.0 Hct 44.2 MCV 92.9 MCH 31.5 MCHC 33.9 RDW 14.3 RDW Differential 47.3 H Plt Count 275 MPV 10.3 Immature Gran % (Auto) 0.100 Neut % (Auto) 68.7 Lymph % (Auto) 21.6 [place] % (Auto) 7.7 Eos % (Auto) 1.6 Baso % (Auto) 0.3 Absolute Neuts (auto) 6.8 Absolute Lymphs (auto) 2.15 Total Counted Not Reportable PT 14.2 INR 1.1 APTT 31.5 Sodium 139 Potassium 5.2 H Chloride 102 Carbon Dioxide 29.0 Anion Gap 8 BUN 14 Creatinine 1.13 Estim Creat Clear Calc 62.21 Est GFR (MDRD) Af Amer 83 Est GFR (MDRD) Non-Af 69 BUN/Creatinine Ratio 12.4 Glucose 106 Calcium 9.7 Magnesium Total Bilirubin 0.50 AST 35 ALT 39 Alkaline Phosphatase 85 Troponin I < 0.015 Total Protein 7.5 Albumin 3.7 Globulin 3.8 Albumin/Globulin Ratio 1.0 Lipase 70 L 04/21/18 04/21/18 04/21/18 00:47 03:36 03:36 WBC 10.5 RBC 4.54 L Hgb 14.3 Hct 42.3 MCV 93.2 MCH 31.5 MCHC 33.8 RDW 14.5 RDW Differential 47.5 H Plt Count 260 MPV 10.1 Immature Gran % (Auto) 0.300 Neut % (Auto) 64.3 Lymph % (Auto) 25.8 [place] % (Auto) 7.0 Eos % (Auto) 2.4 Baso % (Auto) 0.2 Absolute Neuts (auto) 6.8 Absolute Lymphs (auto) 2.71 Total Counted Not Reportable PT INR APTT Sodium Potassium Chloride Carbon Dioxide Anion Gap BUN Creatinine Estim Creat Clear Calc Est GFR (MDRD) Af Amer Est GFR (MDRD) Non-Af BUN/Creatinine Ratio Glucose Calcium Magnesium Total Bilirubin AST ALT Alkaline Phosphatase Troponin I < 0.015 0.018 Total Protein Albumin Globulin Albumin/Globulin Ratio Lipase 04/21/18 04/21/18 03:36 03:36 WBC RBC Hgb Hct MCV MCH MCHC RDW RDW Differential Plt Count MPV Immature Gran % (Auto) Neut % (Auto) Lymph % (Auto) [place] % (Auto) Eos % (Auto) Baso % (Auto) Absolute Neuts (auto) Absolute Lymphs (auto) Total Counted PT INR APTT Sodium 142 Potassium 3.4 L Chloride 105 Carbon Dioxide 29.0 Anion Gap 8 BUN 14 Creatinine 1.11 Estim Creat Clear Calc 63.33 Est GFR (MDRD) Af Amer 85 Est GFR (MDRD) Non-Af 70 BUN/Creatinine Ratio 12.6 Glucose 160 H Calcium 9.1 Magnesium 1.8 Cancelled Total Bilirubin AST ALT Alkaline Phosphatase Troponin I Total Protein Albumin Globulin Albumin/Globulin Ratio Lipase Assessment/Plan chronic recurring chest pain, and cardiac disease, felt to be high risk for colostomy reversal due to noncompliance and medical comorbidities. At this point there is not much I can offer for this gentleman beyond you trying to use an inverting wafer with a smaller opening in the colostomy wafer to keep the stoma prolapse reduced. Recommend enterostomal therapy evaluate patient to see if they have additional recommendations.
[2018-04-21] MEDS: Aspirin E.C. 81 MG Tablet PO (10:08)
[2018-04-21] MEDS: Multivitamins,Therapeutic Tablet 1 TABLET PO (10:10)
[2018-04-21] MEDS: Enoxaparin 40 MG/0.4 ML Syringe SC (10:11)
[2018-04-21] MEDS: amLODIPine 10 MG Tablet PO (10:11)
--- NOTE | 2018-04-21 11:51 | DS.PCM_ITS ---
<Mirtha Huang - Last Filed: 04/21/18 13:18> Discharge Date and Diagnosis Date of Admission: 04/20/18 Date of Discharge: 04/21/18 - Primary Discharge Diagnosis 1. Chest pain, chronic- ACS ruled out 2. Hyperkalemia, resolved 3. Prolapsed colostomy, resolved 4. Hypertension, poorly controlled due to noncompliance with medication regimen 5. CAD status post CABG and stents 6. History of arrhythmia status post pacemaker 7. Hyperlipidemia 8. COPD Hospital Course and Treatment Imaging Results: Diagnostic Data Acute Abdomen Series 04/20/18 21:54 IMPRESSION: Nonspecific bowel gas pattern. Electronically Signed: Ana Javed MD at 22:23 EST Tel , Service support , Dr. Land- General Surgery Operations: None Procedures: None Summary of Care Provided: The patient is a 67 year old M admitted 04/20/2018 due to chest pain and stomal prolapse. He has a past medical history of CAD status post CABG and stents, arrhythmia status post pacemaker placement, hypertension, hyperlipidemia, status post transverse loop colostomy secondary to perforated diverticulitis, COPD, tobacco dependence, obesity. Patient has frequent visits to multiple emergency rooms due to chest pain and stomal prolapse. Patient reported to have at least 15 admissions in the [facility] system this year alone. Patient previously referred to colorectal surgery at [facility] for consideration of stomal takedown. Due to patient's risk factors and no obstructive symptoms, it was concluded that risks outweigh benefits of performing this. Abdominal x-ray showed no abnormal bowel gas pattern. Dr. Land consulted. Recommending trying to use an inverting wafer with a smaller opening to keep stoma prolapse reduced. Also recommending enterostomal therapy evaluation as outpatient. Patient was referred to Ally Becerra metal coater who patient can follow with on an outpatient basis. Colostomy prolapse reduced in ER. EKG without ST changes. Troponin negative. Patient underwent pharmacologic stress test 04/20/2018 at [facility] due to chest pain. Stress test showed a large area of fixed perfusion defect of the inferior segment. No ischemia was identified. ECG gated images demonstrated normal LV size and severely reduced myocardial contractility with an LV ejection fraction of 28%. Patient was discharged from [facility] yesterday following stress test, EKG and serial troponins all which were negative. ACS ruled out. Repeat stress test cancelled. Patient will follow up with primary pediatric care coordinator, Dr. Anne. Continue aspirin, statin, metoprolol. Patient's blood pressure elevated admission due to noncompliance with medication regimen. Blood pressure stable on prescribed home regimen. Hyperkalemia resolved. [facility]AR[facility] report shows 53 total prescribers at 19 total pharmacies. Suspect malingering. [facility] Follow-up with primary flooring professional 1-2 weeks. specialist managers follow up as previously mentioned. General: Alert, Oriented x3, Cooperative, No apparent distress HEENT: Atraumatic, PERRLA, EOMI, Normocephalic Oral: Moist Mucosa Neck: Supple, No JVD, Negative Carotid Bruits Lungs: Clear to auscultation, Normal air movement, No rhonchi, No wheeze, No rales Cardiovascular: Regular rate, Regular Rhythm, Normal S1, Normal S2, No murmurs Abdomen: Bowel Sounds Present, Soft, Non Tender, Non-Distended, colostomy bag intact Extremities: No clubbing, No cyanosis, No edema, Capillary Refill Less than 3 Seconds Skin: No rashes, No breakdown Musculoskeletal: No Tenderness to Palpation of Joints or Extremities Lymphatic: No Cervical, Supraclavicular, or Inguinal Adenopathy Neurological: Cranial nerves II-XII grossly intact, Neuro grossly intact Psych/Mental Status: Normal Affect, Appropriate Patient seen and examined prior to discharge. Physical assessment as noted above. Patient is stable for discharge with follow up recommendations as noted above. This patient was seen by JACQUELINE Martin under the supervision of Dr. Appiah. - Physical Exam Vital Signs Temp Pulse Resp BP Pulse Ox 97.7 F L 65 18 125/64 H 96 04/21/18 10:00 04/21/18 10:00 04/21/18 10:00 04/21/18 10:00 04/21/18 10:00 Oxygen Flow Rate (L/min) 2 Oxygen Delivery Method Room Air Weight: 188 lb 14.978 oz Body Mass Index (BMI) 28.7 Intake and Output for Last 24 Hours 04/19/18 04/20/18 04/21/18 23:59 23:59 23:59 Intake Total 240 / 240 Output Total 100 / 100 Balance 140 / 140 Laboratory Tests Past 24 Hrs 04/20/18 04/20/18 04/20/18 21:45 21:45 21:45 WBC 10.0 RBC 4.76 Hgb 15.0 Hct 44.2 MCV 92.9 MCH 31.5 MCHC 33.9 RDW 14.3 RDW Differential 47.3 H Plt Count 275 MPV 10.3 Immature Gran % (Auto) 0.100 Neut % (Auto) 68.7 Lymph % (Auto) 21.6 [place] % (Auto) 7.7 Eos % (Auto) 1.6 Baso % (Auto) 0.3 Absolute Neuts (auto) 6.8 Absolute Lymphs (auto) 2.15 Total Counted Not Reportable PT 14.2 INR 1.1 APTT 31.5 Sodium 139 Potassium 5.2 H Chloride 102 Carbon Dioxide 29.0 Anion Gap 8 BUN 14 Creatinine 1.13 Estim Creat Clear Calc 62.21 Est GFR (MDRD) Af Amer 83 Est GFR (MDRD) Non-Af 69 BUN/Creatinine Ratio 12.4 Glucose 106 Calcium 9.7 Magnesium Total Bilirubin 0.50 AST 35 ALT 39 Alkaline Phosphatase 85 Troponin I < 0.015 Total Protein 7.5 Albumin 3.7 Globulin 3.8 Albumin/Globulin Ratio 1.0 Lipase 70 L 04/21/18 04/21/18 04/21/18 00:47 03:36 03:36 WBC 10.5 RBC 4.54 L Hgb 14.3 Hct 42.3 MCV 93.2 MCH 31.5 MCHC 33.8 RDW 14.5 RDW Differential 47.5 H Plt Count 260 MPV 10.1 Immature Gran % (Auto) 0.300 Neut % (Auto) 64.3 Lymph % (Auto) 25.8 [place] % (Auto) 7.0 Eos % (Auto) 2.4 Baso % (Auto) 0.2 Absolute Neuts (auto) 6.8 Absolute Lymphs (auto) 2.71 Total Counted Not Reportable PT INR APTT Sodium Potassium Chloride Carbon Dioxide Anion Gap BUN Creatinine Estim Creat Clear Calc Est GFR (MDRD) Af Amer Est GFR (MDRD) Non-Af BUN/Creatinine Ratio Glucose Calcium Magnesium Total Bilirubin AST ALT Alkaline Phosphatase Troponin I < 0.015 0.018 Total Protein Albumin Globulin Albumin/Globulin Ratio Lipase 04/21/18 04/21/18 03:36 03:36 WBC RBC Hgb Hct MCV MCH MCHC RDW RDW Differential Plt Count MPV Immature Gran % (Auto) Neut % (Auto) Lymph % (Auto) [place] % (Auto) Eos % (Auto) Baso % (Auto) Absolute Neuts (auto) Absolute Lymphs (auto) Total Counted PT INR APTT Sodium 142 Potassium 3.4 L Chloride 105 Carbon Dioxide 29.0 Anion Gap 8 BUN 14 Creatinine 1.11 Estim Creat Clear Calc 63.33 Est GFR (MDRD) Af Amer 85 Est GFR (MDRD) Non-Af 70 BUN/Creatinine Ratio 12.6 Glucose 160 H Calcium 9.1 Magnesium 1.8 Cancelled Total Bilirubin AST ALT Alkaline Phosphatase Troponin I Total Protein Albumin Globulin Albumin/Globulin Ratio Lipase Discharge Diet: Low fat/ Low Cholesterol Call your doctor if you observe: Fever of 101 or Higher, Uncontrolled pain Home Medications: Medications to take at Discharge Albuterol Inhaler [Ventolin Hfa] 2 puff INHALATION Q6H PRN PRN 12/15/16 Aspirin E.C. [Ecotrin] 81 mg PO DAILY@0800 12/15/16 Furosemide [Lasix] 40 mg PO DAILY PRN 12/15/16 Gabapentin [Neurontin] 600 mg PO QHS 12/15/16 Losartan Potassium [Cozaar] 100 mg PO DAILY 12/15/16 Metoprolol(XL)Succ [Toprol Xl (Beta Jennifer)] 100 mg PO QHS 12/15/16 Multivitamin,Therapeutic [Thera] 1 each PO DAILY 12/15/16 Nitroglycerin [Nitrostat] 0.4 mg SL Q5M PRN 12/15/16 Pravastatin [Pravachol] 40 mg PO QHS 12/15/16 Quetiapine Fumarate [Seroquel] 400 mg PO QHS 12/15/16 Vitamin B Complex/Folic Acid [Super B Maxi Complex Caplet] 0.4 mg PO DAILY 12/15/16 Ondansetron [Zofran Odt] 4 mg PO Q8H PRN PRN #10 tablet 12/20/16 Amlodipine [Norvasc] 10 mg PO DAILY 12/31/16 Hydrocodone/Acetaminophen [Hydrocodone-Acetamin 5-325 mg] 2 tab PO Q6H 04/21/18 [facility] - Please follow up with your Primary Care Physician in: 1 Week Please Follow Up With: Ally Becerra - [phone] When: Call during business hours to schedule appointment with metal coater Please Follow Up With: Primary pediatric care coordinator, Dr. Anne When: 1-2 Weeks Please Follow Up With: Primary Reel Assembler When: 1-2 Weeks Disposition: Home Minutes spent on discharge:: 35 Patient Condition:: Stable Medical Necessity - Tobacco Use Smoking Status: Current every day smoker Tobacco Use: Cigarettes, Pipe Meaningful Use Info Meaningful Use Diagnoses (Choose all that apply): None applicable <Jean Pierre Appiah - Last Filed: 04/21/18 17:46> Hospital Course and Treatment Summary of Care Provided: This patient was seen in conjunction with Mirtha ABREU. I have independently interviewed and examined the patient and reviewed pertinent history, examination findings, laboratory and plan of management. I have reviewed the note and agree with the documented findings with the few additional points. In brief, patient is admitted for atypical persistent chest pain for several hours. Serial troponin enzymes are negative. EKG not suggestive of ischemia. Patient also had a stress test on 04/18/2018 as mentioned above and was negative for stress-induced ischemia but large area of past myocardial injury. Patient has CABG and stents. Further discussed with Dr. North regarding colostomy prolapse. Because of noncompliance, his colorectal surgeon in [facility] said no further need to follow-up and is also high risk surgical candidate. I have discussed my assessment with Mirtha ABREU and orders have been reviewed. [] Discharge medication reconciliation done. Follow-up completed. Follow-up with pediatric care coordinator and PCP Subjective: Seen and examined. Patient had a history of multiple ER visits Patient lives in [place] and had multiple ER visits in [facility] in [facility]. His pediatric care coordinator in [place]. Patient said he had a chest pain for several hours at least 3 4 hours but is still his troponins are normal Discussed with Dr. North. He was referred to [facility] colorectal surgeon but because of his noncompliance and high surgical risk, he told there is no need for further follow-up with a colorectal surgeon - Physical Exam General: Alert, Oriented x3, Cooperative HEENT: Atraumatic, PERRLA, EOMI, Normocephalic Neck: Supple, No JVD, Negative Carotid Bruits Lungs: Diminished - Air entry diminished bilaterally, Rhonchi - Mild rhonchi. Egophony present Cardiovascular: Regular rate, Regular Rhythm, Normal S1, Normal S2, No murmurs, - - PVCs on monitor Abdomen: Bowel Sounds Present, Soft, Non Tender, Non-Distended, - - Colostomy. Prolapse of colostomy. Formed stool in colostomy bag Extremities: No edema, Capillary Refill Less than 3 Seconds Skin: No rashes, No breakdown Musculoskeletal: No Tenderness to Palpation of Joints or Extremities Neurological: Cranial nerves II-XII grossly intact Psych/Mental Status: Normal Affect, Appropriate Vital Signs Temp Pulse Resp BP Pulse Ox 97.7 F L 69 18 125/64 H 96 04/21/18 10:00 04/21/18 11:03 04/21/18 10:00 04/21/18 10:00 04/21/18 10:00 Oxygen Flow Rate (L/min) 2 Oxygen Delivery Method Room Air Weight: 188 lb 14.978 oz Body Mass Index (BMI) 28.7 Intake and Output for Last 24 Hours 04/19/18 04/20/18 04/21/18 23:59 23:59 23:59 Intake Total 840 / 840 Output Total 100 / 100 Balance 740 / 740 Laboratory Tests Past 24 Hrs 04/20/18 04/20/18 04/20/18 21:45 21:45 21:45 WBC 10.0 RBC 4.76 Hgb 15.0 Hct 44.2 MCV 92.9 MCH 31.5 MCHC 33.9 RDW 14.3 RDW Differential 47.3 H Plt Count 275 MPV 10.3 Immature Gran % (Auto) 0.100 Neut % (Auto) 68.7 Lymph % (Auto) 21.6 [place] % (Auto) 7.7 Eos % (Auto) 1.6 Baso % (Auto) 0.3 Absolute Neuts (auto) 6.8 Absolute Lymphs (auto) 2.15 Total Counted Not Reportable PT 14.2 INR 1.1 APTT 31.5 Sodium 139 Potassium 5.2 H Chloride 102 Carbon Dioxide 29.0 Anion Gap 8 BUN 14 Creatinine 1.13 Estim Creat Clear Calc 62.21 Est GFR (MDRD) Af Amer 83 Est GFR (MDRD) Non-Af 69 BUN/Creatinine Ratio 12.4 Glucose 106 Calcium 9.7 Magnesium Total Bilirubin 0.50 AST 35 ALT 39 Alkaline Phosphatase 85 Troponin I < 0.015 Total Protein 7.5 Albumin 3.7 Globulin 3.8 Albumin/Globulin Ratio 1.0 Lipase 70 L 04/21/18 04/21/18 04/21/18 00:47 03:36 03:36 WBC 10.5 RBC 4.54 L Hgb 14.3 Hct 42.3 MCV 93.2 MCH 31.5 MCHC 33.8 RDW 14.5 RDW Differential 47.5 H Plt Count 260 MPV 10.1 Immature Gran % (Auto) 0.300 Neut % (Auto) 64.3 Lymph % (Auto) 25.8 [place] % (Auto) 7.0 Eos % (Auto) 2.4 Baso % (Auto) 0.2 Absolute Neuts (auto) 6.8 Absolute Lymphs (auto) 2.71 Total Counted Not Reportable PT INR APTT Sodium Potassium Chloride Carbon Dioxide Anion Gap BUN Creatinine Estim Creat Clear Calc Est GFR (MDRD) Af Amer Est GFR (MDRD) Non-Af BUN/Creatinine Ratio Glucose Calcium Magnesium Total Bilirubin AST ALT Alkaline Phosphatase Troponin I < 0.015 0.018 Total Protein Albumin Globulin Albumin/Globulin Ratio Lipase 04/21/18 04/21/18 03:36 03:36 WBC RBC Hgb Hct MCV MCH MCHC RDW RDW Differential Plt Count MPV Immature Gran % (Auto) Neut % (Auto) Lymph % (Auto) [place] % (Auto) Eos % (Auto) Baso % (Auto) Absolute Neuts (auto) Absolute Lymphs (auto) Total Counted PT INR APTT Sodium 142 Potassium 3.4 L Chloride 105 Carbon Dioxide 29.0 Anion Gap 8 BUN 14 Creatinine 1.11 Estim Creat Clear Calc 63.33 Est GFR (MDRD) Af Amer 85 Est GFR (MDRD) Non-Af 70 BUN/Creatinine Ratio 12.6 Glucose 160 H Calcium 9.1 Magnesium 1.8 Cancelled Total Bilirubin AST ALT Alkaline Phosphatase Troponin I Total Protein Albumin Globulin Albumin/Globulin Ratio Lipase Code Visit OBSV E&M: [id number] Observation care discharge
--- NOTE | 2018-04-21 12:42 | PCM.DC ---
You will use the following diet at home:: Cardiac Discharge Activity: Return to Normal Activity Call your doctor if you observe: Fever of 101 or Higher, Uncontrolled pain Allergies/Adverse Reactions: Allergies atorvastatin Allergy (Verified 04/21/18 00:28) Angioedema diclofenac [From Voltaren] Allergy (Verified 04/21/18 00:28) Angioedema hydrochlorothiazide Allergy (Verified 04/21/18 00:28) Angioedema moxifloxacin Allergy (Verified 04/21/18 00:28) Angioedema ramipril Allergy (Verified 04/21/18 00:28) Angioedema rosuvastatin [From Crestor] Allergy (Verified 04/21/18 00:28) Angioedema simvastatin Allergy (Verified 04/21/18 00:28) Angioedema ticagrelor [From Brilinta] Allergy (Verified 04/21/18 00:28) Shortness of breath Medications to take at Discharge Albuterol Inhaler [Ventolin Hfa] 2 puff INHALATION Q6H PRN PRN 12/15/16 Aspirin E.C. [Ecotrin] 81 mg PO DAILY@0800 12/15/16 Furosemide [Lasix] 40 mg PO DAILY PRN 12/15/16 Gabapentin [Neurontin] 600 mg PO QHS 12/15/16 Losartan Potassium [Cozaar] 100 mg PO DAILY 12/15/16 Metoprolol(XL)Succ [Toprol Xl (Beta Jennifer)] 100 mg PO QHS 12/15/16 Multivitamin,Therapeutic [Thera] 1 each PO DAILY 12/15/16 Nitroglycerin [Nitrostat] 0.4 mg SL Q5M PRN 12/15/16 Pravastatin [Pravachol] 40 mg PO QHS 12/15/16 Quetiapine Fumarate [Seroquel] 400 mg PO QHS 12/15/16 Vitamin B Complex/Folic Acid [Super B Maxi Complex Caplet] 0.4 mg PO DAILY 12/15/16 Ondansetron [Zofran Odt] 4 mg PO Q8H PRN PRN #10 tablet 12/20/16 Amlodipine [Norvasc] 10 mg PO DAILY 12/31/16 Hydrocodone/Acetaminophen [Hydrocodone-Acetamin 5-325 mg] 2 tab PO Q6H 04/21/18 [facility] Physician: [facility] [Primary [facility] Provider] - Please follow up with your Primary Care Physician in: 1 Week Test Results: Test results from this visit will be discussed in further detail at your follow-up appointment, if applicable. Please Follow Up With: Ally Sandra - [phone] When: Call during business hours to schedule appointment with ground crewman Please Follow Up With: Primary loss prevention supervisor, Dr. Anne When: 1-2 Weeks Please Follow Up With: Primary Sales Attendant When: 1-2 Weeks Proposed Discharge Date: 04/21/18
--- NOTE | 2018-04-21 12:47 | DCINST_ITS ---
You will use the following diet at home:: Cardiac Discharge Activity: Return to Normal Activity Call your doctor if you observe: Fever of 101 or Higher, Uncontrolled pain Allergies/Adverse Reactions: Allergies atorvastatin Allergy (Verified 04/21/18 00:28) Angioedema diclofenac [From Voltaren] Allergy (Verified 04/21/18 00:28) Angioedema hydrochlorothiazide Allergy (Verified 04/21/18 00:28) Angioedema moxifloxacin Allergy (Verified 04/21/18 00:28) Angioedema ramipril Allergy (Verified 04/21/18 00:28) Angioedema rosuvastatin [From Crestor] Allergy (Verified 04/21/18 00:28) Angioedema simvastatin Allergy (Verified 04/21/18 00:28) Angioedema ticagrelor [From Brilinta] Allergy (Verified 04/21/18 00:28) Shortness of breath Medications to take at Discharge Albuterol Inhaler [Ventolin Hfa] 2 puff INHALATION Q6H PRN PRN 12/15/16 Aspirin E.C. [Ecotrin] 81 mg PO DAILY@0800 12/15/16 Furosemide [Lasix] 40 mg PO DAILY PRN 12/15/16 Gabapentin [Neurontin] 600 mg PO QHS 12/15/16 Losartan Potassium [Cozaar] 100 mg PO DAILY 12/15/16 Metoprolol(XL)Succ [Toprol Xl (Beta Jennifer)] 100 mg PO QHS 12/15/16 Multivitamin,Therapeutic [Thera] 1 each PO DAILY 12/15/16 Nitroglycerin [Nitrostat] 0.4 mg SL Q5M PRN 12/15/16 Pravastatin [Pravachol] 40 mg PO QHS 12/15/16 Quetiapine Fumarate [Seroquel] 400 mg PO QHS 12/15/16 Vitamin B Complex/Folic Acid [Super B Maxi Complex Caplet] 0.4 mg PO DAILY 12/15/16 Ondansetron [Zofran Odt] 4 mg PO Q8H PRN PRN #10 tablet 12/20/16 Amlodipine [Norvasc] 10 mg PO DAILY 12/31/16 Hydrocodone/Acetaminophen [Hydrocodone-Acetamin 5-325 mg] 2 tab PO Q6H 04/21/18 [facility] Care Physician: [facility] [Primary Care Provider] - Please follow up with your Primary Care Physician in: 1 Week Test Results: Test results from this visit will be discussed in further detail at your follow- up appointment, if applicable. Please Follow Up With: Ally Sandra - [phone] When: Call during business hours to schedule appointment with biblical languages professor Please Follow Up With: Primary slip cover cutter, Dr. Anne When: 1-2 Weeks Please Follow Up With: Primary Coat Hanger Shaper Machine Operator When: 1-2 Weeks Proposed Discharge Date: 04/21/18
--- NOTE | 2018-04-21 14:42 | PCM.DC.SUM ---
<Mirtha Huang - Last Filed: 04/21/18 13:18> Discharge Date and Diagnosis Date of Admission: 04/20/18 Date of Discharge: 04/21/18 - Primary Discharge Diagnosis 1. Chest pain, chronic- ACS ruled out 2. Hyperkalemia, resolved 3. Prolapsed colostomy, resolved 4. Hypertension, poorly controlled due to noncompliance with medication regimen 5. CAD status post CABG and stents 6. History of arrhythmia status post pacemaker 7. Hyperlipidemia 8. COPD Hospital Course and Treatment Imaging Results: Diagnostic Data Acute Abdomen Series 04/20/18 21:54 IMPRESSION: Nonspecific bowel gas pattern. Electronically Signed: Ana Javed MD at 22:23 EST Tel , Service support , Dr. Land- General Surgery Operations: None Procedures: None Summary of Care Provided: The patient is a 67 year old M admitted 04/20/2018 due to chest pain and stomal prolapse. He has a past medical history of CAD status post CABG and stents, arrhythmia status post pacemaker placement, hypertension, hyperlipidemia, status post transverse loop colostomy secondary to perforated diverticulitis, COPD, tobacco dependence, obesity. Patient has frequent visits to multiple emergency rooms due to chest pain and stomal prolapse. Patient reported to have at least 15 admissions in the [facility] system this year alone. Patient previously referred to colorectal surgery at [facility] for consideration of stomal takedown. Due to patient's risk factors and no obstructive symptoms, it was concluded that risks outweigh benefits of performing this. Abdominal x-ray showed no abnormal bowel gas pattern. Dr. Land consulted. Recommending trying to use an inverting wafer with a smaller opening to keep stoma prolapse reduced. Also recommending enterostomal therapy evaluation as outpatient. Patient was referred to Ally Becerra hose turner who patient can follow with on an outpatient basis. Colostomy prolapse reduced in ER. EKG without ST changes. Troponin negative. Patient underwent pharmacologic stress test 04/20/2018 at [facility] due to chest pain. Stress test showed a large area of fixed perfusion defect of the inferior segment. No ischemia was identified. ECG gated images demonstrated normal LV size and severely reduced myocardial contractility with an LV ejection fraction of 28%. Patient was discharged from [facility] yesterday following stress test, EKG and serial troponins all which were negative. ACS ruled out. Repeat stress test cancelled. Patient will follow up with primary painter and body mechanic apprentice, Dr. Anne. Continue aspirin, statin, metoprolol. Patient's blood pressure elevated admission due to noncompliance with medication regimen. Blood pressure stable on prescribed home regimen. Hyperkalemia resolved. OARRS report shows 53 total prescribers at 19 total pharmacies. Suspect malingering. [facility] Follow-up with primary haunted history tour guide 1-2 weeks. engineering technical specialist follow up as previously mentioned. General: Alert, Oriented x3, Cooperative, No apparent distress HEENT: Atraumatic, PERRLA, EOMI, Normocephalic Oral: Moist Mucosa Neck: Supple, No JVD, Negative Carotid Bruits Lungs: Clear to auscultation, Normal air movement, No rhonchi, No wheeze, No rales Cardiovascular: Regular rate, Regular Rhythm, Normal S1, Normal S2, No murmurs Abdomen: Bowel Sounds Present, Soft, Non Tender, Non-Distended, colostomy bag intact Extremities: No clubbing, No cyanosis, No edema, Capillary Refill Less than 3 Seconds Skin: No rashes, No breakdown Musculoskeletal: No Tenderness to Palpation of Joints or Extremities Lymphatic: No Cervical, Supraclavicular, or Inguinal Adenopathy Neurological: Cranial nerves II-XII grossly intact, Neuro grossly intact Psych/Mental Status: Normal Affect, Appropriate Patient seen and examined prior to discharge. Physical assessment as noted above. Patient is stable for discharge with follow up recommendations as noted above. This patient was seen by JACQUELINE Martin under the supervision of Dr. Appiah. - Physical Exam Vital Signs Temp Pulse Resp BP Pulse Ox 97.7 F L 65 18 125/64 H 96 04/21/18 10:00 04/21/18 10:00 04/21/18 10:00 04/21/18 10:00 04/21/18 10:00 Oxygen Flow Rate (L/min) 2 Oxygen Delivery Method Room Air Weight: 188 lb 14.978 oz Body Mass Index (BMI) 28.7 Intake and Output for Last 24 Hours 04/19/18 04/20/18 04/21/18 23:59 23:59 23:59 Intake Total 240 / 240 Output Total 100 / 100 Balance 140 / 140 Laboratory Tests Past 24 Hrs 04/20/18 04/20/18 04/20/18 21:45 21:45 21:45 WBC 10.0 RBC 4.76 Hgb 15.0 Hct 44.2 MCV 92.9 MCH 31.5 MCHC 33.9 RDW 14.3 RDW Differential 47.3 H Plt Count 275 MPV 10.3 Immature Gran % (Auto) 0.100 Neut % (Auto) 68.7 Lymph % (Auto) 21.6 Long % (Auto) 7.7 Eos % (Auto) 1.6 Baso % (Auto) 0.3 Absolute Neuts (auto) 6.8 Absolute Lymphs (auto) 2.15 Total Counted Not Reportable PT 14.2 INR 1.1 APTT 31.5 Sodium 139 Potassium 5.2 H Chloride 102 Carbon Dioxide 29.0 Anion Gap 8 BUN 14 Creatinine 1.13 Estim Creat Clear Calc 62.21 Est GFR (MDRD) Af Amer 83 Est GFR (MDRD) Non-Af 69 BUN/Creatinine Ratio 12.4 Glucose 106 Calcium 9.7 Magnesium Total Bilirubin 0.50 AST 35 ALT 39 Alkaline Phosphatase 85 Troponin I < 0.015 Total Protein 7.5 Albumin 3.7 Globulin 3.8 Albumin/Globulin Ratio 1.0 Lipase 70 L 04/21/18 04/21/18 04/21/18 00:47 03:36 03:36 WBC 10.5 RBC 4.54 L Hgb 14.3 Hct 42.3 MCV 93.2 MCH 31.5 MCHC 33.8 RDW 14.5 RDW Differential 47.5 H Plt Count 260 MPV 10.1 Immature Gran % (Auto) 0.300 Neut % (Auto) 64.3 Lymph % (Auto) 25.8 Long % (Auto) 7.0 Eos % (Auto) 2.4 Baso % (Auto) 0.2 Absolute Neuts (auto) 6.8 Absolute Lymphs (auto) 2.71 Total Counted Not Reportable PT INR APTT Sodium Potassium Chloride Carbon Dioxide Anion Gap BUN Creatinine Estim Creat Clear Calc Est GFR (MDRD) Af Amer Est GFR (MDRD) Non-Af BUN/Creatinine Ratio Glucose Calcium Magnesium Total Bilirubin AST ALT Alkaline Phosphatase Troponin I < 0.015 0.018 Total Protein Albumin Globulin Albumin/Globulin Ratio Lipase 04/21/18 04/21/18 03:36 03:36 WBC RBC Hgb Hct MCV MCH MCHC RDW RDW Differential Plt Count MPV Immature Gran % (Auto) Neut % (Auto) Lymph % (Auto) Long % (Auto) Eos % (Auto) Baso % (Auto) Absolute Neuts (auto) Absolute Lymphs (auto) Total Counted PT INR APTT Sodium 142 Potassium 3.4 L Chloride 105 Carbon Dioxide 29.0 Anion Gap 8 BUN 14 Creatinine 1.11 Estim Creat Clear Calc 63.33 Est GFR (MDRD) Af Amer 85 Est GFR (MDRD) Non-Af 70 BUN/Creatinine Ratio 12.6 Glucose 160 H Calcium 9.1 Magnesium 1.8 Cancelled Total Bilirubin AST ALT Alkaline Phosphatase Troponin I Total Protein Albumin Globulin Albumin/Globulin Ratio Lipase Discharge Diet: Low fat/ Low Cholesterol Call your doctor if you observe: Fever of 101 or Higher, Uncontrolled pain Home Medications: Medications to take at Discharge Albuterol Inhaler [Ventolin Hfa] 2 puff INHALATION Q6H PRN PRN 12/15/16 Aspirin E.C. [Ecotrin] 81 mg PO DAILY@0800 12/15/16 Furosemide [Lasix] 40 mg PO DAILY PRN 12/15/16 Gabapentin [Neurontin] 600 mg PO QHS 12/15/16 Losartan Potassium [Cozaar] 100 mg PO DAILY 12/15/16 Metoprolol(XL)Succ [Toprol Xl (Beta Jennifer)] 100 mg PO QHS 12/15/16 Multivitamin,Therapeutic [Thera] 1 each PO DAILY 12/15/16 Nitroglycerin [Nitrostat] 0.4 mg SL Q5M PRN 12/15/16 Pravastatin [Pravachol] 40 mg PO QHS 12/15/16 Quetiapine Fumarate [Seroquel] 400 mg PO QHS 12/15/16 Vitamin B Complex/Folic Acid [Super B Maxi Complex Caplet] 0.4 mg PO DAILY 12/15/16 Ondansetron [Zofran Odt] 4 mg PO Q8H PRN PRN #10 tablet 12/20/16 Amlodipine [Norvasc] 10 mg PO DAILY 12/31/16 Hydrocodone/Acetaminophen [Hydrocodone-Acetamin 5-325 mg] 2 tab PO Q6H 04/21/18 [facility] - Please follow up with your Primary Care Physician in: 1 Week Please Follow Up With: Ally Becerra - [phone] When: Call during business hours to schedule appointment with hose turner Please Follow Up With: Primary painter and body mechanic apprentice, Dr. Anne When: 1-2 Weeks Please Follow Up With: Primary Molded Grid And Parts Inspector When: 1-2 Weeks Disposition: Home Minutes spent on discharge:: 35 Patient Condition:: Stable Medical Necessity - Tobacco Use Smoking Status: Current every day smoker Tobacco Use: Cigarettes, Pipe Meaningful Use Info Meaningful Use Diagnoses (Choose all that apply): None applicable <Jean Pierre Appiah - Last Filed: 04/21/18 17:46> Hospital Course and Treatment Summary of Care Provided: This patient was seen in conjunction with Mirtha ABREU. I have independently interviewed and examined the patient and reviewed pertinent history, examination findings, laboratory and plan of management. I have reviewed the note and agree with the documented findings with the few additional points. In brief, patient is admitted for atypical persistent chest pain for several hours. Serial troponin enzymes are negative. EKG not suggestive of ischemia. Patient also had a stress test on 04/18/2018 as mentioned above and was negative for stress-induced ischemia but large area of past myocardial injury. Patient has CABG and stents. Further discussed with Dr. North regarding colostomy prolapse. Because of noncompliance, his colorectal surgeon in [facility] said no further need to follow-up and is also high risk surgical candidate. I have discussed my assessment with Mirtha ABREU and orders have been reviewed. [] Discharge medication reconciliation done. Follow-up completed. Follow-up with painter and body mechanic apprentice and PCP Subjective: Seen and examined. Patient had a history of multiple ER visits Patient lives in [place] and had multiple ER visits in [facility] in [facility]. His painter and body mechanic apprentice in [place]. Patient said he had a chest pain for several hours at least 3 4 hours but is still his troponins are normal Discussed with Dr. North. He was referred to [facility] colorectal surgeon but because of his noncompliance and high surgical risk, he told there is no need for further follow-up with a colorectal surgeon - Physical Exam General: Alert, Oriented x3, Cooperative HEENT: Atraumatic, PERRLA, EOMI, Normocephalic Neck: Supple, No JVD, Negative Carotid Bruits Lungs: Diminished - Air entry diminished bilaterally, Rhonchi - Mild rhonchi. Egophony present Cardiovascular: Regular rate, Regular Rhythm, Normal S1, Normal S2, No murmurs, - - PVCs on monitor Abdomen: Bowel Sounds Present, Soft, Non Tender, Non-Distended, - - Colostomy. Prolapse of colostomy. Formed stool in colostomy bag Extremities: No edema, Capillary Refill Less than 3 Seconds Skin: No rashes, No breakdown Musculoskeletal: No Tenderness to Palpation of Joints or Extremities Neurological: Cranial nerves II-XII grossly intact Psych/Mental Status: Normal Affect, Appropriate Vital Signs Temp Pulse Resp BP Pulse Ox 97.7 F L 69 18 125/64 H 96 04/21/18 10:00 04/21/18 11:03 04/21/18 10:00 04/21/18 10:00 04/21/18 10:00 Oxygen Flow Rate (L/min) 2 Oxygen Delivery Method Room Air Weight: 188 lb 14.978 oz Body Mass Index (BMI) 28.7 Intake and Output for Last 24 Hours 04/19/18 04/20/18 04/21/18 23:59 23:59 23:59 Intake Total 840 / 840 Output Total 100 / 100 Balance 740 / 740 Laboratory Tests Past 24 Hrs 04/20/18 04/20/18 04/20/18 21:45 21:45 21:45 WBC 10.0 RBC 4.76 Hgb 15.0 Hct 44.2 MCV 92.9 MCH 31.5 MCHC 33.9 RDW 14.3 RDW Differential 47.3 H Plt Count 275 MPV 10.3 Immature Gran % (Auto) 0.100 Neut % (Auto) 68.7 Lymph % (Auto) 21.6 Long % (Auto) 7.7 Eos % (Auto) 1.6 Baso % (Auto) 0.3 Absolute Neuts (auto) 6.8 Absolute Lymphs (auto) 2.15 Total Counted Not Reportable PT 14.2 INR 1.1 APTT 31.5 Sodium 139 Potassium 5.2 H Chloride 102 Carbon Dioxide 29.0 Anion Gap 8 BUN 14 Creatinine 1.13 Estim Creat Clear Calc 62.21 Est GFR (MDRD) Af Amer 83 Est GFR (MDRD) Non-Af 69 BUN/Creatinine Ratio 12.4 Glucose 106 Calcium 9.7 Magnesium Total Bilirubin 0.50 AST 35 ALT 39 Alkaline Phosphatase 85 Troponin I < 0.015 Total Protein 7.5 Albumin 3.7 Globulin 3.8 Albumin/Globulin Ratio 1.0 Lipase 70 L 04/21/18 04/21/18 04/21/18 00:47 03:36 03:36 WBC 10.5 RBC 4.54 L Hgb 14.3 Hct 42.3 MCV 93.2 MCH 31.5 MCHC 33.8 RDW 14.5 RDW Differential 47.5 H Plt Count 260 MPV 10.1 Immature Gran % (Auto) 0.300 Neut % (Auto) 64.3 Lymph % (Auto) 25.8 Long % (Auto) 7.0 Eos % (Auto) 2.4 Baso % (Auto) 0.2 Absolute Neuts (auto) 6.8 Absolute Lymphs (auto) 2.71 Total Counted Not Reportable PT INR APTT Sodium Potassium Chloride Carbon Dioxide Anion Gap BUN Creatinine Estim Creat Clear Calc Est GFR (MDRD) Af Amer Est GFR (MDRD) Non-Af BUN/Creatinine Ratio Glucose Calcium Magnesium Total Bilirubin AST ALT Alkaline Phosphatase Troponin I < 0.015 0.018 Total Protein Albumin Globulin Albumin/Globulin Ratio Lipase 04/21/18 04/21/18 03:36 03:36 WBC RBC Hgb Hct MCV MCH MCHC RDW RDW Differential Plt Count MPV Immature Gran % (Auto) Neut % (Auto) Lymph % (Auto) Long % (Auto) Eos % (Auto) Baso % (Auto) Absolute Neuts (auto) Absolute Lymphs (auto) Total Counted PT INR APTT Sodium 142 Potassium 3.4 L Chloride 105 Carbon Dioxide 29.0 Anion Gap 8 BUN 14 Creatinine 1.11 Estim Creat Clear Calc 63.33 Est GFR (MDRD) Af Amer 85 Est GFR (MDRD) Non-Af 70 BUN/Creatinine Ratio 12.6 Glucose 160 H Calcium 9.1 Magnesium 1.8 Cancelled Total Bilirubin AST ALT Alkaline Phosphatase Troponin I Total Protein Albumin Globulin Albumin/Globulin Ratio Lipase Code Visit OBSV E&M: [id number] Observation care discharge
--- NOTE | 2018-04-21 14:53 | NURSING ---
REVIEWED Adina MAURICIO'S CHARTING.
== END 2018-04-21 12:49 | disposition home or self-care (01) ==
LOC: ED 22:41 → PCU 23:45
PROVIDERS: Admitting Provider Student in an Organized Health Care Education/Training Program; Emergency Provider Emergency Medicine; Visit Provider Internal Medicine
DX: R07.89 Other chest pain (principal); I25.10 Atherosclerotic heart disease of native coronary artery without angina pectoris; E78.5 Hyperlipidemia, unspecified; J44.9 Chronic obstructive pulmonary disease, unspecified; E87.5 Hyperkalemia; I10 Essential (primary) hypertension; F17.210 Nicotine dependence, cigarettes, uncomplicated; R06.02 Shortness of breath; Z95.0 Presence of cardiac pacemaker; Z95.1 Presence of aortocoronary bypass graft; Z91.14 Patient's other noncompliance with medication regimen; Z79.899 Other long term (current) drug therapy; Z79.82 Long term (current) use of aspirin; K94.09 Other complications of colostomy; Y83.8 Other surgical procedures as the cause of abnormal reaction of the patient, or of later complication, without mention of misadventure at the time of the procedure
CPT/HCPCS: 74022; 80048; 80053; 83690; 83735; 84484; 85025; 85610; 85730; 93005; 94660; 96361; 96372; 96374; 96375; 97802; 99218; 99285; 99406; J7030; A4216; G0378; J2405

== ENCOUNTER 2018-05-17 11:13 | Emergency (ER) | payer MEDICARE, OTHER, SELFPAY ==
[2018-04-21 00:22] VITALS: BMI 28.7
[2018-05-17 11:14] VITALS: BP 163/133; PULSE 85; RESP 16; TEMP 36.2; O2SAT 98; BMI 28.6
[2018-05-17] MEDS: Ondansetron 4 MG/2 ML Vial IV (12:02)
[2018-05-17] MEDS: HYDROmorphone 1 MG/ML Syringe IV (12:02)
--- NOTE | 2018-05-17 13:01 | ED.VISSUMM ---
- ER Visit Summary Date of Service: 05/17/18 Chief Complaint: Colostomy prolapse History of Present Illness: The patient is a 67 M with a history of a colostomy from complications of diverticulitis that was initially placed about a year and a half ago in [place] at [facility]. The stoma prolapsed today. Associate with nausea. Physical Examination: Afebrile and vital signs unremarkable. Right lower quadrant stoma is prolapsed about the size of a grapefruit. No bleeding. Stool is noted in the bag and is normal for the patient. Test Results: None indicated Emergency Department Course and Treatment: Patient was treated with Dilaudid and Zofran. I was able to reduce the stoma manually, and the nurse will replace the bag. He was referred to a surgeon for follow-up. Treatment Plan: As above Disposition: Discharge Impression: 1. Stoma prolapse This note was generated with [employer] dictation software. It may contain incorrect words, spelling, and punctuation that were not noted in review of the chart prior to signing ED Disposition - Plan for ED Patient: Chief Complaint: Abd Pain [facility] [[facility] -
--- NOTE | 2018-05-17 13:04 | ED.DEP ---
ED Disposition - Plan for ED Patient: Chief Complaint: Abd Pain Instructions: Colostomy: Changing Your Pouch [facility] [Primary Care Provider] -
[2018-05-17] MEDS: HYDROmorphone 0.5 MG/0.5 ML SYRINGE IV (13:40)
[2018-05-17 13:58] VITALS: BP 179/99; RESP 14
--- OUTSIDE RECORDS SUMMARY | 2018-07-21 23:54 | XMS RPT_ITS ---
:1950 Author Organization OHIP Support Name Relationship Address Phone NIKOS MARY Unavailable [address] + [place] [address] R Unavailable Unavailable Unavailable NONE TO LIST PER PT Unavailable Unavailable Unavailable MARY KNOTT Unavailable Unavailable + MARY KNOTT Unavailable Unavailable + MARY KNOTT Unavailable [address] + [place] [address] R Unavailable Unavailable Unavailable MARY KNOTT Unavailable [address] + [place] [address] R Unavailable Unavailable Unavailable MARY KNOTT Unavailable [address] + [place] [address] R Unavailable Unavailable Unavailable MARY KNOTT Unavailable [address] + [place] [address] R Unavailable Unavailable Unavailable MARY KNOTT Unavailable Unavailable + NONE TO LIST PER PT Unavailable Unavailable Unavailable MARY KNOTT Unavailable Unavailable + NONE TO LIST PER PT Unavailable Unavailable Lisa KNOTT Unavailable Unavailable + MARY KONTT Unavailable Unavailable + MARY KNOTT Unavailable Unavailable + NONE TO LIST PER PT Unavailable Unavailable Unavailable MARY KNOTT Unavailable Unavailable + MARY KNOTT Unavailable Unavailable + MARY KNOTT Unavailable Unavailable + MARY KNOTT Unavailable [address] + [place] [address] R Unavailable Unavailable Unavailable MARY KNOTT Unavailable Unavailable + NONE TO LIST Unavailable Unavailable Unavailable MARY NIKOS Unavailable Unavailable + NIKOS MARY Unavailable Unavailable + NONE TO LIST Unavailable Unavailable Unavailable MARY NIKOS Unavailable Unavailable + NIKOS MARY Unavailable Unavailable + NIKOS MARY Unavailable [address] + [place] [address] R Unavailable Unavailable Unavailable NIKOS MARY Unavailable Unavailable + NONE TO LIST Unavailable Unavailable Unavailable MARY LOCKER ROOM ATTENDANT Unavailable Unavailable + NIKOS MARY Unavailable Unavailable + NONE TO LIST Unavailable Unavailable Unavailable MARY LOCKER ROOM ATTENDANT Unavailable Unavailable + NIKOS MARY Unavailable Unavailable + NONE TO LIST Unavailable Unavailable Unavailable MARY LOCKER ROOM ATTENDANT Unavailable Unavailable + MARY KNOTT Unavailable Unavailable + NONE TO LIST Unavailable Unavailable Unavailable MARY LOCKER ROOM ATTENDANT Unavailable Unavailable + NIKOS MARY Unavailable Unavailable + NIKOS MARY Unavailable [address] + [place] [address] R Unavailable Unavailable Unavailable MARY KNOTT Unavailable Unavailable + NONE TO LIST Unavailable Unavailable Unavailable MARY NIKOS Unavailable Unavailable + MARY KNOTT Unavailable Unavailable + Mary Knott Unavailable Unavailable + NIKOS MARY Unavailable [address] + [place] [address] R Unavailable Unavailable Unavailable NONE TO LIST Unavailable Unavailable Unavailable MARY LOCKER ROOM ATTENDANT Unavailable Unavailable + Mary Knott Unavailable Unavailable + MARY KNOTT Unavailable [address] + [place] [address] R Unavailable Unavailable Unavailable NONE TO LIST Unavailable Unavailable Unavailable MARY LOCKER ROOM ATTENDANT Unavailable Unavailable + Mary Knott Unavailable Unavailable + MARY KNOTT Unavailable [address] + [place] [address] R Unavailable Unavailable Unavailable MARY KNOTT Unavailable [address] + [place] [address] R Unavailable Unavailable Unavailable NONE TO LIST Unavailable Unavailable Unavailable MARY NIKOS Unavailable Unavailable + NIKOS MARY Unavailable Unavailable + Nikos Mary Unavailable Unavailable + NIKOSMARY Unavailable [address] + [place] [address] R Unavailable Unavailable Unavailable MARY KNOTT Unavailable [address] + [place] [address] R Unavailable Unavailable Unavailable MARY KNOTT Unavailable [address] + [place] [address] R Unavailable Unavailable Unavailable NONE TO LIST Unavailable Unavailable Unavailable MARY KNOTT Unavailable Unavailable + Mary Knott Unavailable Unavailable + NIKOS MARY Unavailable [address] + [place] [address] R Unavailable Unavailable Unavailable NONE TO LIST Unavailable Unavailable Unavailable MARY LOCKER ROOM ATTENDANT Unavailable Unavailable + Mary Knott Unavailable Unavailable + NIKOS MARYBETH Unavailable Unavailable + LOCKER ROOM ATTENDANT, MARYBETH Unavailable Unavailable + MARYBETH KNOTT Unavailable Unavailable + NONE TO LIST Unavailable Unavailable Unavailable MARY LOCKER ROOM ATTENDANT Unavailable Unavailable + Mary Knott Unavailable Unavailable + NIKOS MARY Unavailable [address] + [place] [address] R Unavailable Unavailable Unavailable NONE TO LIST Unavailable Unavailable Unavailable MARY KNOTT Unavailable Unavailable + Mary Knott Unavailable Unavailable + MARY KNOTT Unavailable [address] + [place] [address] R Unavailable Unavailable Unavailable LISETH KNOTT Unavailable [address] + [place] [address] R Unavailable Unavailable Unavailable LISETH KNOTT Unavailable [address] + [place] [address] R Unavailable Unavailable Unavailable NONE TO LIST Unavailable Unavailable Unavailable MARY KNOTT Unavailable Unavailable + Mary Knott Unavailable Unavailable + NONE TO LIST Unavailable Unavailable Unavailable MARY KNOTT Unavailable Unavailable + Mary Knott Unavailable Unavailable + Mary Knott Unavailable Unavailable + ' Unavailable [address] + [place] [address] NONE TO LIST Unavailable Unavailable Unavailable MARY KNOTT Unavailable Unavailable + Mary Knott Unavailable Unavailable + NONE TO LIST Unavailable Unavailable Unavailable MARY KNOTT Unavailable Unavailable + Care Team Providers Name Role Phone IMCA Primary Care Unavailable IMCA Admitting Unavailable MARTHA EWING Attending Unavailable GENE MEJÍA A Consulting Unavailable VIRAL, GAMAL Consulting Unavailable IMCA Primary Care Unavailable MINE PROCTOR Attending Unavailable IMCA Primary Care Unavailable Osman MORELAND Admitting Unavailable KYM, GENE A Consulting Unavailable Osman PALMER Attending Unavailable Osman ALMONTE Consulting Unavailable Osman BENAVIDES Consulting Unavailable IMCA Primary Care Unavailable QAVI, HALEIGH LUIS E Admitting Unavailable JOHNNY CAMARGO Consulting Unavailable Anneliese SANCHEZ Attending Unavailable IMCA Primary Care Unavailable MARANDA OMER Admitting Unavailable GENE MEJÍA A Consulting Unavailable JAROCHO DOUGHERTY Attending Unavailable JOHNNY CAMARGO Consulting Unavailable IM[facility] Primary Care Unavailable Osman AHN Admitting Unavailable RATNA BHATT Consulting Unavailable MARANDA OMER Attending Unavailable ANEUDY RAE Consulting Unavailable [facility] Primary Care Unavailable KAJAL LAURENT Attending Unavailable [facility] Primary Care Unavailable LORRAINE BIRCH Attending Unavailable KYM, GENE A Consulting Unavailable IMCA Primary Care Unavailable GENE MEJÍA Consulting Unavailable MD SABRINA SORENSEN Admitting Unavailable JAROCHO DOUGHERTY Attending Unavailable IMCA Primary Care Unavailable PONCHO BARRY Attending Unavailable IM[facility] Primary Care Unavailable LASH-RITTER, TAYLOR M Admitting Unavailable LASH-RITTER, TAYLOR M Attending Unavailable IMCA Primary Care Unavailable KARL MELENDEZ Admitting Unavailable MD ABHAY YODER Attending Unavailable RATNA BHATT Consulting Unavailable MARANDA BURTON Attending Unavailable [employer] Attending Unavailable [employer] Attending Unavailable Benton Gonzales Attending Unavailable RONALD PATEL Attending Unavailable Mj, Dr. Neisha Hanley Referring Unavailable Edgar, Dr. Cruz Attending Unavailable MORELMICHAEL CARRENO Attending Unavailable Lareau, Dr. Shell Phelps Attending Unavailable Edgar, Dr. Cruz Attending Unavailable WOO VALDOVINOS Attending Unavailable SOUTH SUDANESE, RAFI Attending Unavailable SOUTH SUDANESECASSI Attending Unavailable GORGUN, I RIOS Admitting Unavailable GORGUN, I RIOS Attending Unavailable RICHJOHNY MANZANARESANN Admitting Unavailable GORGUN, I RIOS Attending Unavailable MIKE ODELL Attending Unavailable BHAMA, HANNAH Referring Unavailable BART OLVERA Attending Unavailable COURTNEY MALLORY Attending Unavailable GORODESKI, EIRAN Z Referring Unavailable GORODESKI, EIRAN Z Admitting Unavailable GUERO BUNN Attending Unavailable BEATA ROCHA Attending Unavailable JESUS ROJAS Attending Unavailable WOO VALDOVINOS Attending Unavailable BHAMA, HANNAH Admitting Unavailable CLEMENTINEAMA, HANNAH Attending Unavailable GABRIEL MANDUJANO Referring Unavailable Chele Smith Attending Unavailable Chele Smith [facility] Milana Gaytan [facility]ending [facility] Unavailable Verenice Shell [facility]ending [facility] Naomie Koenig [facility]ending [facility] Unavailable Koram, Lena Rosa Isela Admitting Unavailable Jean Pierre Appiah Attending Unavailable Bijan Land Consulting Unavailable Koram, Lena Rosa Isela Admitting Unavailable Koram, Lena Rosa Isela Attending [facility] Unavailable Koram, Lena Rosa Isela Consulting Unavailable Jayjayam, Lena Rosa Isela Admitting [facility] Unavailable Bijan Land Consulting Unavailable Jean Pierre Appiah Attending Unavailable Jean Pierre Appiah Consulting [facility] Un[facility] Lenin Kline [facility]ending [facility] Unavailable Bart Perry Att[facility] Un[facility] Gabriel Mandujano Attending [facility] Un[facility] Chele Smith [facility] Gabriel Mandujano [facility] Un[facility] Chele Smith Attending Unavailable Torsten Garcia Attending [facility] Un[facility] Verenice Shell Attending [facility] Un[facility] Hue Peters Attending [facility] Un[facility] Gabriel Mandujano [facility] Chele Smith [facility] Un[facility] Torsten Garcia Attending Unavailable Lenin Garzon Attending Unavailable Lena Christianson Referring Unavailable MARTHA EWING Attending Unavailable GAMAL STRATTON Consulting Unavailable MINE PROCTOR Attending Unavailable AISHA MORELAND Admitting Unavailable BELINDA PALMER Attending Unavailable BIJAN BENAVIDES Consulting Unavailable QAVITOÑITO Admitting Unavailable JOHNNY CAMARGO Consulting Unavailable STEPHANIE SANCHEZ Attending Unavailable MARANDA OMER Admitting Unavailable JAROCHO DOUGHERTY Attending Unavailable JOHNNY CAMARGO Consulting Unavailable RATNA AHN Admitting Unavailable MARANDA OMER Attending Unavailable ANEUDY RAE Consulting Unavailable KAJAL LAURENT Attending Unavailable MANISH OTT (RES) Admitting Unavailable MANISH OTT (RES) Attending Unavailable BRITNEY WATERS Consulting Unavailable LORRAINE KISER Attending Unavailable KYM GENE A Consulting Unavailable SORENSEN, NAUHAR Admitting Unavailable KYM GENE A Consulting Unavailable JAROCHO DOUGHERTY Attending Unavailable TIA TAYLOR A Admitting Unavailable TAYLOR WEBER Attending Unavailable KARL MELENDEZ Admitting Unavailable ABHAY YODER (FEL) Attending Unavailable RATNA BHATT Consulting Unavailable MARANDA BURTON Attending Unavailable [facility] Primary [facility] Unavailable [facility] Unavailable [facility] Primary Care Unavailable [facility] Primary Care Unavailable Fernie Segundo Admitting Unavailable Sarah Mauro Attending Unavailable [facility] Primary Care Unavailable [facility] Primary Care Unavailable [facility], [facility] Primary Care Unavailable HODAN WOO MD Attending Unavailable CHERISE CHAVEZ MD Referring Unavailable MAREK WASHINGTON MD Attending Unavailable [facility], [facility] Primary Care Unavailable MAREK WASHINGTON MD Attending Unavailable [facility] Primary Care Unavailable NONE Primary Care Unavailable NONE Referring Unavailable MAYUGA, MYTTLE Consulting Unavailable MIKE JAIME Attending Unavailable NICK BOB Attending Unavailable NICK BOB Procedure Practitioner Unavailable NONE Primary Care Unavailable HENRI HARVEY Referring Unavailable GUSZain ANEUDY R Consulting Unavailable KAITLYNN NUNES Consulting Unavailable NONE Primary Care Unavailable UNKNOWN, PROVIDER Attending Unavailable NONE Referring Unavailable NONE Primary Care Unavailable HALIMA ROB Attending Unavailable FEARING, ANEUDY W Primary Care Unavailable JUANA MERLOS (IMS) Attending Unavailable UNKNOWN, PROVIDER Consulting Unavailable FEARING, ANEUDY W Primary Care Unavailable NGOC EAST Attending Unavailable FEARING, ANEUDY W Referring Unavailable FEARING, ANEUDY W Primary Care Unavailable FEARING, ANEUDY W Referring Unavailable NICOLA MALIK (IMS) Helen Attending Unavailable YONATAN, A SHANTHI Consulting Unavailable UNKNOWN, PROVIDER Procedure Practitioner Unavailable FEARING, ANEUDY W Primary Care Unavailable LUZ MARIA BADILLO Attending Unavailable FEARING, ANEUDY W Referring Unavailable ELJUANA KEARNEY ([facility]) Attending Unavailable UNKNOWN, PROVIDER Consulting Unavailable FEARING, ANEUDY W Primary Care Unavailable FEARING, ANEUDY W Referring Unavailable FIORDALIZA ANDERSON Consulting Unavailable MARCO BLAIR Attending Unavailable NONE Primary Care Unavailable GUSZ, ANEUDY R Consulting Unavailable NONE Primary Care Unavailable UNKNOWN, PROVIDER Attending Unavailable NONE Referring Unavailable NONE Primary Care Unavailable SYDNEY, NILE Referring Unavailable Tracey Wiggins Attending Unavailable YONATAN A SHANTHI Consulting Unavailable NEISHA JONES Procedure Practitioner Unavailable AALIYAH DAN Consulting Unavailable RAE PEACOCK Consulting Unavailable NONE Primary Care Unavailable UNKNOWN, PROVIDER Attending Unavailable NONE Referring Unavailable JONATHON MAJANO Consulting Unavailable VICKIE MONTGOMERY Consulting Unavailable NONSTAFF, PHYSICIAN Primary Care Unavailable ANEUDY HERRERA Attending Unavailable MAYUGA, MYTTLE Consulting Unavailable TRACEY METCALF (IMS) Consulting Unavailable NONSTAFF, PHYSICIAN Primary Care Unavailable LINDSAY JAIME Attending Unavailable NONSTAFF, PHYSICIAN Referring Unavailable SYDNEY, NILE Referring Unavailable SYDNEY, NILE Primary Care Unavailable LISA ODELL Attending Unavailable EDGAR, SANEKA Consulting Unavailable BOBANGA, IULIANA Consulting Unavailable UNKNOWN, PROVIDER Attending Unavailable SARAC LISSETT, AKHIL S Primary Care Unavailable ANEUDY HERRERA Attending Unavailable UNKNOWN, PROVIDER Consulting Unavailable SARAC LISSETT, AKHIL S Primary Care Unavailable SARAC LISSETT, AKHIL S Referring Unavailable MAX EVANGELISTA Consulting Unavailable SARAC LISSETT, AKHIL S Primary Care Unavailable HALIMA ROB Attending Unavailable SARAC LISSETT, AKHIL S Referring Unavailable SARAC LISSETT, AKHIL S Primary Care Unavailable HUE BLACK Attending Unavailable SARAC LISSETT, AKHIL S Primary Care Unavailable SARAC LISSETT, AKHIL S Referring Unavailable BRIAN CISSE Attending Unavailable HUE BLACK Attending Unavailable ANEUDY GALEANA Referring Unavailable ANEUDY GALEANA Primary Care Unavailable BOBANGA, IULIANA Consulting Unavailable VAICIUNAITE, DONATA Consulting Unavailable PROBLEMS PROBLEMS DATE TYPE CONDITION / CODE ATTENDING STATUS SOURCE Admitting ENCOUNTER FOR Valentin BLACK Diagnosis ATTENTION TO COLOSTOMY [facility] / Z43.3(ICD-10) Hospital Repository Unknown R94.31 - Abnormal Lenin Garzon Active [place] [facility]ogram Community [ECG] [EKG] / Hospital R94.31(ICD-10) Repository Final ABNORMAL BRIAN CISSE Diagnosis ELECTROCARDIOGRAM [facility] (Discharge) ?ECG? ?EKG? / Hospital R94.31(ICD-10) Repository Active Malingerer (conscious BURTON, MARANDA Active [place] 8 simulation) / A Clinic Other Z76.5(ICD-10) [place] Repository Active Hypokalemia / ABHAY YODER Active [place] 8 E87.6(ICD-10) (FEL) Clinic Other [place] Repository Active Chest pain, ABHAY YODER Active [place] 8 unspecified / (FEL) Clinic Other R07.9(ICD-10) [place] Repository Active Dermatitis, ABHAY YODER [facility] 8 unspecified / (FEL) Clinic Other L30.9(ICD-10) [place] Repository Admitting Unknown / UNK(Unknown) MD DORIS Active [place] [address] diagnosis [facility] Repository Final DORSALGIA, UNSPECIFIED BULGRIN, HALIMA Active [facility] 8 Diagnosis / M54.9(ICD-10) [facility] (Discharge) Hospital Repository Final OTHER CHRONIC PAIN / BULGRIN, HALIMA Active [facility] 8 Diagnosis G89.29(ICD-10) [facility] (Discharge) Hospital Repository Final ANXIETY DISORDER, BULGRIN, HALIMA Active [facility] 8 Diagnosis UNSPECIFIED / [facility] F41.9(ICD-10) Hospital Repository Final MAJOR DEPRESSIVE BULGRIN, HALIMA Active [place] 8 Diagnosis DISORDER, SINGLE [facility] (Discharge) EPISODE, UNSPECIFIED / Hospital F32.9(ICD-10) Repository Final Unspecified abdominal Dr. Winston Counts Include [address] [facility] 8 diagnosis pain / R10.9(ICD-10) [facility] (discharge) Repository Final Parastomal hernia Dr. Winston Counts Include [address] [facility] 8 diagnosis without obstruction or [facility] (discharge) gangrene / Repository K43.5(ICD-10) Final Athscl heart disease Dr. Winston Counts Include [address] [facility] 8 diagnosis of [place] coronary [facility] (discharge) artery w/o ang pctrs / Repository I25.10(ICD-10) Final Presence of cardiac Dr. Winston Counts Include [address] [facility] 8 diagnosis pacemaker / [facility] (discharge) Z95.0(ICD-10) Repository Active Shortness of breath / Dr. Winston Counts Include [address] [facility] 8 R06.02(ICD-10) [facility] Repository Active Cough / R05(ICD-10) Dr. Winston Counts Include [address] [facility] 8 [facility] Repository Active Upper abdominal pain, CANDIS, Valentin [place] 8 unspecified / JAROCHO Clinic Other R10.10(ICD-10) [place] Repository Final UNSPECIFIED INJURY OF Unknown Active [facility] M[facility]ney Diagnosis HEAD, INITIAL [facility] (Discharge) ENCOUNTER / Hospital S09.90XA(ICD-10) Repository Final OBESITY, UNSPECIFIED / Unknown Active [place] 8 Diagnosis E66.9(ICD-10) [facility] (Discharge) Hospital Repository Final DISORDER OF THYROID, Unknown Active [facility] 8 Diagnosis UNSPECIFIED / [facility] E07.9(ICD-10) Hospital Repository Final BODY MASS INDEX (BMI) Unknown Active [place] 8 Diagnosis 29.0-29.9, ADULT / [facility] (Discharge) Z68.29(ICD-10) Hospital Repository Final OTHER NURSING HOME Unknown Active [facility] 8 Diagnosis (CURRENT) DRUG THERAPY [facility] / Z79.899(ICD-10) Hospital Repository Final STRIKING AGAINST OTH Unknown Active [place] 8 Diagnosis OBJECT W SUBSEQUENT [facility] (Discharge) FALL, INIT ENCNTR / Hospital W18.09XA(ICD-10) Repository Final OTHER THYROTOXICOSIS LISA ODELL Active Robert Mckinney Diagnosis WITHOUT THYROTOXIC [facility] (Discharge) CRISIS OR STORM / Hospital E05.80(ICD-10) Repository Final ANEMIA, UNSPECIFIED / LISA ODELL Active [facility] 8 Diagnosis D64.9(ICD-10) [facility] (Discharge) Hospital Repository Final PREDIABETES / LISA OEDLL Active [facility] Mckinney Diagnosis R73.03(ICD-10) [facility] (Discharge) Hospital Repository Final DO NOT RESUSCITATE / LISA ODELL Active [facility] 8 Diagnosis Z66(ICD-10) [facility] (Discharge) Hospital Repository Active Acute ischemic heart NA Active Shellie 8 disease, unspecified / Clinic Main I24.9(ICD-10) [place] Repository Active Abdominal aortic GUERO BUNN Active [place] 8 aneurysm, without Clinic Main rupture / [place] I71.4(ICD-10) Repository Active Encounter for GUERO BUNN Active [place] 8 attention to colostomy Clinic Main / Z43.3(ICD-10) [place] Repository Active Atherosclerosis of GUERO BUNN Active [place] 8 coronary artery bypass Clinic Main graft(s) without [place] angina pectoris / Repository I25.810(ICD-10) Active Essential (primary) GUERO BUNN Active [place] [facility] hypertension / Clinic Main I10(ICD-10) [place] Repository Active Hyperlipidemia, GUERO BUNN Active [place] 8 unspecified / Clinic Main E78.5(ICD-10) [place] Repository Active Obstructive sleep GUERO BUNN Active [place] 8 apnea (adult) Clinic Main (pediatric) / [place] G47.33(ICD-10) Repository Active Other chest pain / GUERO BUNN Active [place] 8 R07.89(ICD-10) Clinic Main [place] Repository Active Other nonspecific GUERO BUNN Active [place] 8 abnormal finding of Clinic Main lung field / [place] R91.8(ICD-10) Repository Active Nontoxic single GUERO BUNN Active [place] 8 thyroid nodule / Clinic Main E04.1(ICD-10) [place] Repository Active Chronic systolic EYAL-QUICHO, 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 [facility] Clinic Other failure / [place] I50.22(ICD-10) Repository Active Solitary pulmonary EYAL-QUICHO, Active [place] 8 nodule / R91.1(ICD-10) [facility] Clinic Other [place] Repository Active Ischemic EYAL-QUICHO, Active [place] 8 cardiomyopathy / [facility] Clinic Other I25.5(ICD-10) [place] Repository Active Chronic pain syndrome EYAL-QUICHO, Active [place] 8 / G89.4(ICD-10) [facility] Clinic Other [place] Repository Active Presence of cardiac EYAL-QUICHO, Active [place] 8 pacemaker / [facility] Clinic Other Z95.0(ICD-10) [place] Repository Admitting ACUTE GASTRITIS FU, ANEUDY CATHY Active [facility] 8 Diagnosis WITHOUT BLEEDING / [facility] K29.00(ICD-10) Hospital Repository Final ACUTE GASTRITIS FU, ANEUDY MORGAN Active [facility] 8 Diagnosis WITHOUT BLEEDING / [facility] K29.00(ICD-10) Hospital Repository Final CHRONIC COMBINED FU, ANEUDY MORGAN Active [place] 8 Diagnosis SYSTOLIC AND DIASTOLIC [facility] HRT FAIL / Hospital I50.42(ICD-10) Repository Final DILATED CARDIOMYOPATHY FU, ANEUDY MORGAN Active [facility] 8 Diagnosis / I42.0(ICD-10) [facility] (Discharge) Hospital Repository Final ISCHEMIC FU, ANEUDY MORGAN Active [facility] 8 Diagnosis CARDIOMYOPATHY / [facility] I25.5(ICD-10) Hospital Repository Admitting GASTRIC ULCER, UNSP Tracey Wiggins Diagnosis ACUTE OR CHRONIC, W/O [facility] HEMOR OR PERF / Hospital K25.9(ICD-10) Repository Final GASTRIC ULCER, UNSP Tracey Wiggins Diagnosis ACUTE OR CHRONIC, W/O [facility] (Discharge) HEMOR OR PERF / Hospital K25.9(ICD-10) Repository Final DVRTCLOS OF INTEST, Tracey Wiggins Diagnosis PART UNSP, W/O PERF OR [facility] (Discharge) ABSCESS W BLEED / Hospital K57.91(ICD-10) Repository Final ENCOUNTER FOR ADJUST Tracey Wiggins Diagnosis AND MGMT OTH PRT [facility] (Discharge) CARDIAC PACEMAKER / Hospital Z45.018(ICD-10) Repository Final DYSPHAGIA, UNSPECIFIED Tracey Wiggins Diagnosis / R13.10(ICD-10) [facility] (Discharge) Hospital Repository Final THYROTXCOSIS W TOXIC Tracey Wiggins Diagnosis SING THYROID NODULE [facility] (Discharge) W/O THYROTXC CRISIS / Hospital E05.10(ICD-10) Repository Final SLEEP APNEA, Tracey Wiggins Diagnosis UNSPECIFIED / [facility] (Discharge) G47.30(ICD-10) Hospital Repository Active Nicotine dependence, NAMRATA Active [place] 8 unspecified, RAVKIRAN (RES) Clinic Other uncomplicated / [place] F17.200(ICD-10) Repository Active Opioid use, NAMRATA Active [place] 8 unspecified, RAVKIRAN (RES) Clinic Other uncomplicated / [place] F11.90(ICD-10) Repository Active Acute on chronic NAMRATA Active [place] 8 systolic (congestive) RAVKIRAN (RES) Clinic Other heart failure / [place] I50.23(ICD-10) Repository Admitting UNSPECIFIED ABDOMINAL Unknown Valentin Mckinney Diagnosis HERNIA [facility] OR [facility] GANGRENE / Repository K46.9(ICD-10) Final UNSPECIFIED ABDOMINAL Unknown Active [place] 8 Diagnosis HERNIA WITHOUT [facility] (Discharge) OBSTRUCTION OR Hospital GANGRENE / Repository K46.9(ICD-10) Final OBSTRUCTIVE SLEEP Unknown Active [place] 8 Diagnosis APNEA (ADULT) [facility] (Discharge) (PEDIATRIC) / Hospital G47.33(ICD-10) Repository Final NONTOXIC SINGLE Unknown Active [place] 8 Diagnosis THYROID NODULE / [facility] (Discharge) E04.1(ICD-10) Hospital Repository Final PERSONAL HISTORY OF MARCO BLAIR Active Robert 8 Diagnosis OTHER DISEASES OF THE [facility] (Discharge) DIGESTIVE SYSTEM / Hospital Z87.19(ICD-10) Repository Final FALL IN (INTO) SHOWER MARCO BLAIR Active Robert 8 Diagnosis OR EMPTY BATHTUB, [facility] (Discharge) INITIAL ENCOUNTER / Hospital W18.2XXA(ICD-10) Repository Active Other complications of FERTEL, JESUS S Active [place] 8 colostomy / Clinic Main K94.09(ICD-10) [place] Repository Active Nausea with vomiting, FERTEL, JESUS S Active [place] 8 unspecified / Clinic Main R11.2(ICD-10) [place] Repository Active Contusion of LAURENT, Active [place] 8 unspecified front wall [facility] Clinic Other of thorax, initial [place] encounter / Repository S20.219A(ICD-10) Unknown K46.9 - Unspecified Verenice Shell Active [place] 8 abdominal hernia Community without obstruction or Hospital gangrene / Repository K46.9(ICD-10) Admitting SPINAL STENOSIS, ELAMIN, KHALID Active Jones 8 Diagnosis CERVICAL REGION / (IMS) [facility] M48.02(ICD-10) Hospital Repository Final SPINAL STENOSIS, ELAMIN, KHALID Active Jones 8 Diagnosis CERVICAL REGION / (IMS) [facility] (Discharge) M48.02(ICD-10) Hospital Repository Final SPINAL STENOSIS, ELAMIN, KHALID Active [facility] 8 Diagnosis LUMBAR REGION WITHOUT (IMS) [facility] (Discharge) NEUROGENIC RL / Hospital M48.061(ICD-10) Repository Final HYPOKALEMIA / ELAMIN, KHALID Active [facility] 8 Diagnosis E87.6(ICD-10) (IMS) [facility] (Discharge) Hospital Repository Final OTHER CHRONIC JUANA MERLOS Diagnosis POSTPROCEDURAL PAIN / ([facility] (Discharge) G89.28(ICD-10) Hospital Repository Final OCCLUSION AND STENOSIS JUANA MERLOS Diagnosis OF UNSPECIFIED CAROTID ([facility] (Discharge) ARTERY / Hospital I65.29(ICD-10) Repository Final FALL SAME LEV FROM JUANA MERLOS Diagnosis SLIP/TRIP W/O STRIKE ([facility] (Discharge) AGAINST OBJECT, INIT / Hospital W01.0XXA(ICD-10) Repository Final ALLERGY STATUS TO OT JUANA MERLOS Diagnosis DRUG/MEDS/BIOL SUBST ([facility] (Discharge) STATUS / Z88.8(ICD-10) Hospital Repository Unknown R10.30 - [place] Active [place] 8 abdominal pain, Community unspecified / Hospital R10.30(ICD-10) Repository Active Enteroptosis / SOUTH SUDANESE, CASSI Active [place] 8 K63.4(ICD-10) Clinic Main [place] Repository Active Unspecified abdominal SOUTH SUDANESE, CASSI Active [place] 8 pain / R10.9(ICD-10) Clinic Main [place] Repository Active Heart failure, SOUTH SUDANESE, CASSI Active [place] 8 unspecified / Clinic Main I50.9(ICD-10) [place] Repository Unknown Z93.3 - Colostomy Milana Gaytan Active [place] 8 status / Z93.3(ICD-10) [facility] Hospital Repository Final WEAKNESS / LUZ MARIA BADILLO Diagnosis R53.1(ICD-10) [facility] (Discharge) Hospital Repository Admitting OTHER CHEST PAIN / NICOLA MALIK Diagnosis R07.89(ICD-10) ([facility] Hospital Repository Final TOBACCO ABUSE NICOLA MALIK Diagnosis COUNSELING / ([facility] (Discharge) Z71.6(ICD-10) Hospital Repository Final PATIENT'S NICOLA MALIK Diagnosis NONCOMPLIANCE W OTH ([facility] (Discharge) MEDICAL TREATMENT AND Hospital REGIMEN / Repository Z91.19(ICD-10) Active Other specified WOO VALDOVINOS Active Shellie 8 disorders of teeth and Clinic Main supporting structures [place] / K08.89(ICD-10) Repository Final UNSP INTRACRANIAL KITA [facility] [place] [facility] / Hospital S06.9X9A(ICD-10) Repository Final FALL SAME LEV FROM [facility] Diagnosis SLIP/TRIP W STRIKE [facility] (Discharge) AGNST OT OBJECT, INIT Hospital / W01.198A(ICD-10) Repository Final CERVICALGIA / [facility] Diagnosis M54.2(ICD-10) [facility] (Discharge) Hospital Repository Final PAIN IN THORACIC SPINE [facility] Diagnosis / M54.6(ICD-10) [facility] (Discharge) Hospital Repository Final LOW BACK PAIN / [facility] Diagnosis M54.5(ICD-10) [facility] (Discharge) Hospital Repository Final OTHER INJURY OF KITA [facility] [place] Diagnosis UNSPECIFIED BODY [facility] (Discharge) REGION, INITIAL Hospital ENCOUNTER / Repository T14.8XXA(ICD-10) Final SHORTNESS OF BREATH / [facility] Diagnosis R06.02(ICD-10) [facility] (Discharge) Hospital Repository Unknown R10.9 - Unspecified Chele Smith 8 abdominal pain / Community R10.9(ICD-10) Hospital Repository Final CHRONIC DIASTOLIC ELAMIN, AGALID Valentin Jones 8 Diagnosis (CONGESTIVE) HEART ([facility] (Discharge) FAILURE / Hospital I50.32(ICD-10) Repository Final NICOTINE DEPENDENCE, ELAMIN, AGALID Valentin Jones 8 Diagnosis OTHER TOBACCO PRODUCT, ([facility] (Discharge) UNCOMPLICATED / Hospital F17.290(ICD-10) Repository Active Mixed hyperlipidemia / STONE, MARANDA J Active [place] 8 E78.2(ICD-10) Clinic Other [place] Repository Active Presence of STONE, MARANDA J Active [place] 8 aortocoronary bypass Clinic Other graft / Z95.1(ICD-10) [place] Repository Active Presence of cardiac STONE, MARANDA J Active [place] 8 and vascular implant Clinic Other and graft, unspecified [place] / Z95.9(ICD-10) Repository Unknown K31.89 - Other Gabriel Mandujano Active [place] 8 diseases of stomach Community and duodenum / Hospital K31.89(ICD-10) Repository Active Colostomy status / NA Active [place] 8 Z93.3(ICD-10) Clinic Main [place] Repository Final INCISIONAL HERNIA BULGRGALEN TAVARESHRYN Active Robert 8 Diagnosis WITHOUT OBSTRUCTION OR [facility]) GANGRENE / Hospital K43.2(ICD-10) Repository Final NAUSEA / R11.0(ICD-10) HALIMA ROB Active Robert 8 Diagnosis [facility] (Discharge) Hospital Repository Active Other complications of BART OLVERA Active [place] 8 enterostomy / Clinic Main K94.19(ICD-10) [place] Repository Active Unspecified GORGUN, I RIOS Active [place] 8 osteoarthritis, Clinic Main unspecified site / [place] M19.90(ICD-10) Repository Active Generalized abdominal GORGUN, I RIOS Active [place] 8 pain / R10.84(ICD-10) Clinic Main [place] Repository Active Unspecified fall, FLORO, STEPHANIE Active [place] 8 initial encounter / [facility] Other W19.XXXA(ICD-10) [place] Repository Active Dorsalgia, unspecified FLORO, STEPHANIE Active [place] 8 / M54.9(ICD-10) ANNITA [facility] Other [place] Repository Active Cervicalgia / FLORO, STEPHANIE Active [place] 8 M54.2(ICD-10) ANNITA [facility] Other [place] Repository Active Low back pain / FLORO, STEPHANIE Active [place] 8 M54.5(ICD-10) [facility] Other [place] Repository Active Other chronic pain / FLORO, STEPHANIE Active [place] 8 G89.29(ICD-10) ANNITA Clinic Other [place] Repository Admitting UNSPECIFIED ABDOMINAL Unknown Active Jones 8 Diagnosis PAIN / R10.9(ICD-10) [facility] Hospital Repository Final UNSPECIFIED ABDOMINAL Unknown Active Jones 8 Diagnosis PAIN / R10.9(ICD-10) [facility] (Discharge) Hospital Repository Final CHEST PAIN, Unknown Active Jones 8 Diagnosis UNSPECIFIED / [facility] R07.9(ICD-10) Hospital Repository Final PARASTOMAL HERNIA Unknown Active Jones 8 Diagnosis WITHOUT OBSTRUCTION OR [facility]) GANGRENE / Hospital K43.5(ICD-10) Repository Active Unknown / UNK(Unknown) NA Active [place] 8 Clinic Main [place] Repository Active Atherosclerotic heart NA Active [place] 8 disease of [place] [facility] Main coronary artery [place] without angina Repository pectoris / I25.10(ICD-10) Active Melena / K92.1(ICD-10) VALLURI, Active [place] 8 BELINDA [facility] Other [place] Repository Active Colostomy malfunction SANTOSH, [facility] 8 / K94.03(ICD-10) CHRISTOPHER J [facility] Other [place] Repository Active Diverticulitis of [facility] intestine, part Clinic Other unspecified, without [place] perforation or abscess Repository without bleeding / K57.92(ICD-10) Active Parastomal hernia ALI, [facility] 8 without obstruction or Clinic Other gangrene / [place] K43.5(ICD-10) Repository Active Ventral hernia without [facility], [facility] 8 obstruction or Clinic Other gangrene / [place] K43.9(ICD-10) Repository Final Colostomy status / Abourjeily, Active [place] 8 diagnosis Z93.3(ICD-10) [facility] (discharge) Repository Final Benign prostatic Abourjeily, Active University 8 diagnosis hyperplasia without [facility] (discharge) lower urinry tract Repository symp / N40.0(ICD-10) Admitting OTHER COMPLICATIONS OF NICK BOB Active Robert 8 Diagnosis COLOSTOMY / [facility] K94.09(ICD-10) Hospital Repository Final OTHER COMPLICATIONS OF NICK BOB Diagnosis COLOSTOMY / [facility] K94.09(ICD-10) Hospital Repository Final OTHER CHEST PAIN / NICK BOB Diagnosis R07.89(ICD-10) [facility] Repository Final ATHSCL HEART DISEASE NICK BOB Diagnosis OF YOCHA DEHE CORONARY [facility] (Discharge) ARTERY W/O [facility] PCTRS / Hospital I25.10(ICD-10) Repository Final UNSPECIFIED ASTHMA, NICK BOB Diagnosis UNCOMPLICATED / [facility] J45.909(ICD-10) Hospital Repository Final NICOTINE DEPENDENCE, NICK BOB Diagnosis UNSPECIFIED, [facility]) UNCOMPLICATED / Hospital F17.200(ICD-10) Repository Final CYST OF KIDNEY, NICK BOB Diagnosis ACQUIRED / [facility] N28.1(ICD-10) Hospital Repository Active Atherosclerotic heart GORGUN, I RIOS Active Shellie 8 disease of [place] Clinic Main coronary artery with [place] unspecified angina Repository pectoris / I25.119(ICD-10) Active Encounter for other GORGUN, I RIOS Active [place] 8 preprocedural Clinic Main examination / [place] Z01.818(ICD-10) Repository Admitting CHEST PAIN, MIKE JAIME Active Jones 8 Diagnosis UNSPECIFIED / [facility] R07.9(ICD-10) Hospital Repository Final ATHSCL HEART DISEASE MIKE JAIME Active Jones 8 Diagnosis OF YO[place] DEHE COR ART W [facility] (Discharge) UNSP [facility] PCTRS / Hospital I25.119(ICD-10) Repository Final CHRONIC OBSTRUCTIVE MIKE JAIME Active Jones 8 Diagnosis PULMONARY DISEASE, [facility] (Discharge) UNSPECIFIED / Hospital J44.9(ICD-10) Repository Final HYPERTENSIVE HEART MIKE JAIME Active Jones 8 Diagnosis DISEASE WITH HEART [facility] FAILURE / Hospital I11.0(ICD-10) Repository Final HEART FAILURE, MIKE JAIME Active [facility] 8 Diagnosis UNSPECIFIED / [facility] I50.9(ICD-10) Hospital Repository Final HYPERLIPIDEMIA, MIKE JAIME B Active [facility] 8 Diagnosis UNSPECIFIED / [facility] E78.5(ICD-10) Hospital Repository Final DVRTCLOS OF INTEST, MIKE JAIME Active [place] 8 Diagnosis PART UNSP, W/O PERF OR [facility] (Discharge) ABSCESS W/O BLEED / Hospital K57.90(ICD-10) Repository Final PAIN DUE TO OTHER MIKE JAIME Active [facility] 8 Diagnosis INTERNAL PROSTH [facility] ([facility]) DEV/GRFT, INIT / Hospital T85.848A(ICD-10) Repository Final NICOTINE DEPENDENCE, MIKE JAIME Active Jones 8 Diagnosis CIGARETTES, [facility] (Discharge) UNCOMPLICATED / Hospital F17.210(ICD-10) Repository Final PRESENCE OF MIKE JAIME Active Jones 8 Diagnosis AORTOCORONARY BYPASS [facility] (Discharge) GRAFT / Z95.1(ICD-10) Hospital Repository Final PRESENCE OF CARDIAC MIKE JAIME Active Jones 8 Diagnosis PACEMAKER / [facility] (Discharge) Z95.0(ICD-10) Hospital Repository Final ACQUIRED ABSENCE OF MIKE JAIME Active [facility] 8 Diagnosis OTHER SPECIFIED PARTS [facility]) OF DIGESTIVE TRACT / Hospital Z90.49(ICD-10) Repository Final COLOSTOMY STATUS / MIKE JAIME Active [place] 8 Diagnosis Z93.3(ICD-10) [facility] (Discharge) Hospital Repository Final 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 Active Jones 8 Diagnosis INFARCTION / [facility] (Discharge) I25.2(ICD-10) Hospital Repository Final PRESENCE OF CORONARY MIKE JAIME Active [place] 8 Diagnosis ANGIOPLASTY IMPLANT [facility]) AND GRAFT / Hospital Z95.5(ICD-10) Repository Final NURSING HOME (CURRENT) MIKE JAIME Active Jones 8 Diagnosis USE OF [facility] (Discharge) ANTITHROMBOTICS/ANTIPL Hospital ATELETS / Repository Z79.02(ICD-10) Final NURSING HOME (CURRENT) MIKE JAIME Active Jones 8 Diagnosis USE OF ASPIRIN / [facility] (Discharge) Z79.82(ICD-10) Hospital Repository PROCEDURES PROCEDURES DATE CODE DESCRIPTION STATUS SOURCE 04/05/2018 57355([facility] 22985 Completed [place] CPT-4) Hospitals Repository 04/05/2018 77643([facility] 24474 [facility] CPT-4) Hospitals Repository 04/05/2018 47653([facility] 04337 Completed [place] CPT-4) Hospitals Repository 04/05/2018 11774([facility] 81205 Completed [place] CPT-4) Hospitals Repository 04/05/2018 58393([facility] 63550 Completed [place] CPT-4) Hospitals Repository 04/05/2018 61657([facility] 52823 Completed [place] CPT-4) Hospitals Repository 04/05/2018 17350([facility] 61370 Completed [place] CPT-4) Hospitals Repository 12/13/2017 8ZM13GA(ICD-10 EXCISION OF STOMACH, Completed [facility] ) ENDO, DIAGN Hospital Repository 12/13/2017 9LGI7NL(ICD-10 INSPECTION OF LOWER Completed [facility] ) INTESTINAL TRACT, EN Hospital Repository 10/19/2017 7K889S2(ICD-10 MEASURE OF CARDIAC Completed [facility] ) SAMPL & PRESSURE, L Hospital Repository H 10/19/2017 [id number](ICD-10 FLUOROSCOPY OF MULT Completed [facility] ) COR ART USING L [facility] Hospital Repository 10/19/2017 R2813VU(ICD-10 FLUOROSCOPY OF SING Completed [facility] ) COR A GRAFT USING L Hospital Repository 07/05/2017 02784([facility] 9[address]00 Completed [place] CPT-4) Hospitals Repository 06/22/2017 4A2335H(ICD-10 DRAINAGE OF STOMACH Completed [facility] ) WITH DRAINAGE DEVICE Hospital Repository RESULTS RESULTS ED NOTE Observed: 05/24/2018 Status: COMPLETED Source: [place] 8:04 PM CLINIC OTHER CAMPUS REPOSITORY HNO ID: [id number] Author: Yue Toth) MITCHELL Hernandez Service: Emergency Medicine Author Type: Registered Nurse Type: ED Notes Filed: 05/24/2018 8:04 PM Note Text: Pt called twice to be revitaled and have blood work drawn without answer. ED NOTE Observed: 05/24/2018 Status: COMPLETED Source: [place] 7:00 PM CLINIC OTHER CAMPUS REPOSITORY HNO ID: [id number] Author: Laurel Medeiros (Tech) Service: Emergency Medicine Author Type: Media Account Executive Type: ED Notes Filed: 05/24/2018 7:01 PM Note Text: Unable to obtain labs. Pt. Did not answer when name was called in internal and main waiting rooms. ED TRIAGE NOTE Observed: 05/24/2018 Status: COMPLETED Source: [place] 5:48 PM CLINIC OTHER CAMPUS REPOSITORY HNO ID: [id number] Author: Yane Roca Service: Emergency Medicine Author Type: Physician Title Insurance Examiner Type: ED Triage Notes Filed: 05/24/2018 5:50 PM Note Text: ED INTAKE NOTE Patient Name: Maxx Knott Service Date: 05/24/18 BRIEF HPI: Patient is a 67 y/o M who presents to the ED for evaluation of abdominal pain near her stoma. Patient reports 30 minutes prior to arrival he slipped on ice causing him to fall forward onto his stomach. He denies hitting his head or LOC. He reports that since the fall his stoma has increased in size and has had more output. He denies any bloody output in stool. He has associated nausea, but denies vomiting. BRIEF EXAM: Constitutional: Well developed, well nourished, NAD HEENT: Normocephalic, atraumatic Respiratory: No respiratory distress Cardiac: RRR Abdomen: Soft, stoma in RLQ Neuro: AANDOx3 Skin: Warm and dry INTAKE WORKUP: CBC, CMP, UA SIGNATURE: Yane Roca PA-C ED NOTE Observed: 05/24/2018 Status: COMPLETED Source: [place] 5:39 PM [facility] REPOSITORY HNO ID: [id number] Author: Maranda White RN Service: Emergency Medicine Author Type: Registered Nurse Type: ED Notes Filed: 05/24/2018 5:40 PM Note Text: Pt stated stoma for colostomy is coming out more that normal; Stated fell on ice about 30 min ago; No blood noted; Denies hitting head; Denies and LOC; (+) nausea but no vomiting; CHART UPDATE Observed: 05/20/2018 Status: UNK Source: [place] 1:00 PM HOSPITALS REPOSITORY Chart Update Progress Note Free Text_UH: I received a phone call from Dr. Woo Carlos who is taking care of Mr. Knott. They are currently admitted at [facility]. In review of the records, he noted that the patient and had numerous ER visits and hospitalizations at both the [facility] and I believe even [facility]. He was inquiring about work that he had done here at [facility]. He was unaware that the patient had had caths and both 2016 and September 2017 and the patient was recathed at [facility] this admission. The nature of the call was to inform us that this patient has been bouncing around different systems and is not relating all of his encounters to his caregivers. We could not see where his device is being followed but will at least inquire with our device clinic about that. Signatures Electronically signed by : René Anne MD; May 20 2018 1:00PM EST (Author) ED NOTE Observed: 05/18/2018 Status: COMPLETED Source: [place] 7:39 AM [facility] REPOSITORY HNO ID: [id number] Author: Cristy KingRn) MITCHELL Whitmore Service: Nursing Author Type: Registered Nurse Type: ED Notes Filed: 05/18/2018 7:39 AM Note Text: ED NOTE Observed: 05/18/2018 Status: COMPLETED Source: [place] 7:31 AM [facility] REPOSITORY HNO ID: [id number] Author: Anisa Toth) MITCHELL Jerome Service: Nursing Author Type: Registered Nurse Type: ED Notes Filed: 05/18/2018 7:31 AM Note Text: Patient LWBS ED NOTE Observed: 05/18/2018 Status: COMPLETED Source: [place] 7:24 AM [facility] REPOSITORY HNO ID: [id number] Author: Anisa Toth) MITCHELL Jerome Service: Nursing Author Type: Registered Nurse Type: ED Notes Filed: 05/18/2018 7:24 AM Note Text: RN and MD to room to evaluate patient. Patient not in room. Gown on bed. ED NOTE Observed: 05/18/2018 Status: COMPLETED Source: [place] 7:10 AM [facility] REPOSITORY HNO ID: [id number] Author: Anisa Toth) MITCHELL Jerome Service: Nursing Author Type: Registered Nurse Type: ED Notes Filed: 05/18/2018 7:24 AM Note Text: RN to room to evaluate pt. No patient in room. EKG Observed: 05/18/2018 Status: F Source: [place] 6:17 AM [facility] REPOSITORY NAME : MAXX KNOTT PID : [id number] : 1950 Gender : Male Race : ORD : Procedure Date : May 18 2018 06:17:03 Edit Date : May 18 2018 18:34:19 Diagnosis:NORMAL SINUS RHYTHM POSSIBLE LEFT ATRIAL ENLARGEMENT T WAVE ABNORMALITY, CONSIDER INFERIOR ISCHEMIA ABNORMAL ECG WHEN COMPARED WITH ECG OF 19-APR-2018 09:45, FUSION COMPLEXES ARE NO LONGER PRESENT INVERTED T WAVES HAVE REPLACED NONSPECIFIC T WAVE ABNORMALITY IN INFERIOR LEADS NONSPECIFIC T WAVE ABNORMALITY, IMPROVED IN ANTEROLATERAL LEADS QT HAS LENGTHENED Confirmed by MD LAURENT CAROL ([id number]) on 05/18/2018 6:34:18 PM Ventricular Rate : 96 BPM Atrial Rate : 96 BPM P-R Interval : 176 ms QRS Duration : 102 ms Q-T Interval : 380 ms QTC Calculation(Bezet) : 480 ms P Powderhorn : 72 degrees R Powderhorn : 73 degrees T Powderhorn : 44 degrees Test Reason : Location : 4 : [place] [address] Overread By : MD LAURENT CAROL Edited By : MD LAURENT CAROL Referred By : , Acquired by : [facility] Observed: 05/17/2018 Status: F Source: [place] SUMMARY 3:45 PM [facility] REPOSITORY [facility] Medical Records Department [address] [place] [address] Emergency Department Summary 05/17/18 1301 MR#: [id number] Acct: [id number] Name: MAXX KNOTT Rep #: [id number] : 1950 67 From: Lenin Kline MD PCP: [place], [place] Status: DEP ER - ER Visit Summary Date of Service: 05/17/18 Chief Complaint: Colostomy prolapse History of Present Illness: The patient is a 67 M with a history of a colostomy from complications of diverticulitis that was initially placed about a year and a half ago in [place] at [facility]. The stoma prolapsed today. Associate with nausea. Physical Examination: Afebrile and vital signs unremarkable. Right lower quadrant stoma is prolapsed about the size of a grapefruit. No bleeding. Stool is noted in the bag and is normal for the patient. Test Results: None indicated Emergency Department Course and Treatment: Patient was treated with Dilaudid and Zofran. I was able to reduce the stoma manually, and the nurse will replace the bag. He was referred to a surgeon for follow-up. Treatment Plan: As above Disposition: Discharge Impression: 1. Stoma prolapse This note was generated with [employer] dictation software. It may contain incorrect words, spelling, and punctuation that were not noted in review of the chart prior to signing ED Disposition - Plan for ED Patient: Chief Complaint: Abd Pain Referrals: [facility] [Primary Care Provider] - What to do if you have Problems For any increased pain, shortness of breath, bleeding, nausea or vomiting, chest pain, or any unexpected problems, contact your Primary Care Provider. Call [facility] ([phone]) or report to the closest Emergency Room. Call 911 if necessary. 05/17/181544 <Electronically signed by Lenin Kline MD> Date Lenin Kline MD Cosigner Signature (If Indicated): Date CC: [facility] Hospital DISCHARGE INSTRUCTION Observed: 05/17/2018 Status: F Source: [place] 3:45 PM [facility] REPOSITORY [facility] Medical Records Department [address] [place] [address] Discharge Instruction 05/17/18 1304 MR#: [id number] Acct: [id number] Name: MAXX KNOTT Rep #: [id number] : 1950 67 From: Lenin Kline MD PCP: [place], [place] Status: DEP ER ED Disposition - Plan for ED Patient: Chief Complaint: Abd Pain Instructions: Colostomy: Changing Your Pouch Referrals: [facility] [Primary Care Provider] - What to do if you have Problems For any increased pain, shortness of breath, bleeding, nausea or vomiting, chest pain, or any unexpected problems, contact your Primary Care Provider. Call [facility] ([phone]) or report to the closest Emergency Room. Call 911 if necessary. 05/17/18 1545 <Electronically signed by Lenin Kline MD> Date Lenin Raisa MD Cosigner Signature (If Indicated): Date CC: [facility] PROGRESS Observed: 05/05/2018 Status: COMPLETED Source: [place] 10:56 PM [facility] REPOSITORY HNO ID: [id number] Author: Luis Manuel (Ewa Barillas Service: Radiology Author Type: Media Account Executive Type: Progress Notes Filed: 05/05/2018 10:56 PM Note Text: Radiology Service Progress Note PATIENT NAME: Maxx Knott DATE OF SERVICE: May 05, 2018 TIME: 10:56 PM PATIENT IDENTITY VERIFICATION COMPLETED USING TWO (2) METHODS: Patient confirmed name verbally and ID band matches.. PATIENT GENDER DATA: Male PATIENT RELEVANT IMPLANT DATA REVIEWED: Not Applicable RADIOLOGY DEPARTMENT: General X-ray: Exam(s) Completed: Chest X-Ray PERIPHERAL IV DATA: Not applicable SIGNED BY: RT Isaiah May 05, 2018 10:56 PM XR CHEST 2V FRONTAL/LAT Observed: 05/05/2018 Status: F Source: [place] 10:55 PM [facility] REPOSITORY * * *Final Report* * * DATE OF EXAM: May 05 2018 10:55PM EGX [id number] - XR CHEST 2V FRONTAL/LAT / PROCEDURE REASON: Chest pain * * * * Physician Interpretation * * * * EXAMINATION: CHEST RADIOGRAPH (2 VIEW FRONTAL and LATERAL) CLINICAL HISTORY: Chest pain, MQ: [id number]_5 Comparison: 02/07/2018 RESULT: Lines, tubes, and devices: Left-sided pacemaker with leads in the expected location of right atrium and right ventricle, unchanged. Lungs and pleura: No consolidation. No pneumothorax. Pulmonary vascular markings are unremarkable. Herniation of the abdominal contents including likely portion of stomach, through the left hemidiaphragm, unchanged. No pleural effusion. Cardiomediastinal silhouette: Stable enlarged cardiomediastinal silhouette. Other: Status post median sternotomy and CABG. IMPRESSION: No acute radiographic abnormality. Chronic unchanged findings as reported Geriatric Physical Therapist: MAGI Transcribe Date/Time: May 05 2018 10:57P Dictated by : ANNY MURRELL MD This examination was interpreted and the report reviewed and electronically signed by: PERRI GARZA MD on May 05 2018 11:19PM EST [id number] CBC AND DIFFERENTIAL Collected: 05/05/2018 Status: F Source: [place] 10:53 PM [facility] REPOSITORY TYPE CODE TESTS RESULT OUT OF REFERENCE UNITS RANGE LAB WBC 3.70-11.00 k/uL WBC 10.40 LAB RBC 4.20-6.00 m/uL RBC 4.61 LAB HGB 13.0-17.0 g/dL Hemoglobin 14.4 LAB HCT 39.0-51.0 % Hematocrit 42.8 LAB MCV 80.0-100.0 fL MCV 92.8 LAB MCH 26.0-34.0 pG MCH 31.2 LAB MCHC 30.5-36.0 g/dL MCHC 33.6 LAB RDWCV 11.5-15.0 % RDW-CV 14.2 LAB PLTCT 150-400 k/uL Platelet Count 300 LAB MPV 9.0-12.7 fL MPV 10.7 LAB ANEUT % Neut% 61.1 LAB AANEUT 1.45-7.50 k/uL Abs Neut 6.35 LAB ALYMP % Lymph% 26.2 LAB AALYMP 1.00-4.00 k/uL Abs Lymph 2.72 LAB AMONO % Wirt% 8.0 LAB AAMONO <0.87 k/uL Abs Wirt 0.83 LAB AEOS % Eosin% 4.3 LAB AAEOS <0.46 k/uL Abs Eosin 0.45 LAB ABASO % Baso% 0.4 LAB AABASO <0.11 k/uL Abs Baso 0.04 LAB AUNRBC 0 /100 WBC NRBCs 0.0 LAB ABNRBC <0.01 k/uL Absolute nRBC <0.01 LAB DTYP DTYPE Auto Diff Performed By: #### CBCDIF, CMP, HSTNT, NTBNP #### [facility] [address] [place], [place] [address] COMP METABOLIC PANEL Collected: 05/05/2018 Status: F Source: [place] 10:53 PM [facility] REPOSITORY TYPE CODE TESTS RESULT OUT OF REFERENCE UNITS RANGE LAB TP 6.3-8.0 g/dL Protein, Total 7.6 LAB ALB 3.9-4.9 g/dL Albumin 4.3 LAB CA 8.5-10.2 mg/dL Calcium, Total 10.0 LAB TBIL 0.2-1.3 mg/dL Bilirubin, Total 0.3 LAB ALKP 38-113 U/L Alkaline Phosphatase 85 LAB AST 14-40 U/L AST 20 LAB GLU 74-99 mg/dL Glucose 95 Result Comment: The [place] [employer] (ADA) [...] BUN 15 LAB CRET 0.73-1.22 mg/dL Creatinine High 1.24 LAB NA 136-144 mmol/L Sodium 142 LAB K 3.7-5.1 mmol/L Low Potassium 3.4 LAB CL 97-105 mmol/L Chloride 99 LAB CO2 22-30 mmol/L CO2 28 LAB AGAP 9-18 mmol/L Anion Gap 15 LAB ALT 10-54 U/L ALT 21 LAB [...] GFR. Performed By: #### CBCDIF, CMP, HSTNT, NTBNP #### [facility] [address] [place] [id number] HIGH SENS TROPONIN T Collected: 05/05/2018 Status: F Source: [place] 10:53 PM [facility] REPOSITORY TYPE CODE TESTS RESULT OUT OF REFERENCE UNITS RANGE LAB HSTN <12 ng/L High High Sensitivity BRAYAN 21 Result Comment: When assessing risk for acute [...] MACE. Performed By: #### CBCDIF, CMP, HSTNT, NTBNP #### [facility] [address] [place] [id number] NT PRO BNP Collected: 05/05/2018 Status: F Source: [place] 10:53 PM [facility] REPOSITORY TYPE CODE TESTS RESULT OUT OF REFERENCE UNITS RANGE LAB PBNP <125 pg/mL High PRO B Natr 1792 Peptide Performed By: #### CBCDIF, CMP, HSTNT, NTBNP #### [place] [id number] ED NOTE Observed: 05/05/2018 Status: COMPLETED Source: [place] 10:48 PM [facility] REPOSITORY HNO ID: [id number] Author: Renetta aCmpa (Rn) MITCHELL Cobian Service: Emergency Medicine Author Type: Registered Nurse Type: ED Notes Filed: 05/05/2018 10:48 PM Note Text: Pt to radiology for x-ray ED PROV NOTE Observed: 05/05/2018 Status: COMPLETED Source: [place] 9:46 PM [facility] REPOSITORY HNO ID: [id number] Author: Cassi Solano MD Service: Emergency Medicine Author Type: Physician Type: ED Provider Notes Filed: 05/06/2018 6:34 PM Note Text: ED Provider Note Patient Name: Maxx Knott SERVICE DATE: 05/05/18 History Patient presents with: Chest Pain: x 45 mins Nausea This is a 67 y/o M with the Hx of CAD s/p CABG x 3 in 2005 , s/p GREY in 11/2015 for a occluded vein graft, CHF (EF 45%), COPD, YUSUF, diverticulitis c/b perforation (July 2016) s/p Chad with loop colostomy with h/o multiple ED visits for stoma prolapse (awaiting stoma reversal with CORS), recurrent ER visit for chest pain, Chronic opoid abuse, multiple opoid prescribe, smoking, here with the complaint of chest pain and abdominal pain and a mechanical fall today at 8pm. He has central aching chest pain, 01/07, no radiation, associated with SOB, nausea and dizziness, also has abdominal pain, 9/10. He said he tripped and fall on the foot mat, and hit his chest anteriorly and his abdomen. He had mild pain before that, but after the fall the pain is increased. He has SOB which is chronic due to his COPD, he usually sleep upright as he cant sleep flat, have orthopnea, no PND. His abdominal pain also worsen after the fall, he says it is more in the lower abdomen, normal stool output, mild bloating but passing gas through his colostomy. Patient is seeking for pain medications. 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 HENT: Positive for rhinorrhea, sinus pain, sinus pressure and sneezing. Negative for dental problem, drooling, ear discharge, ear pain, facial swelling, hearing loss, mouth sores, nosebleeds, postnasal drip, sore throat, tinnitus, trouble swallowing and voice change. Eyes: Negative. Respiratory: Positive for cough and shortness of breath. Negative for choking, chest tightness, wheezing and stridor. Cardiovascular: Positive for chest pain. Negative for palpitations and leg swelling. Gastrointestinal: Positive for abdominal pain and nausea. Negative for abdominal distention, anal bleeding, blood in stool, constipation, diarrhea, rectal pain and vomiting. Genitourinary: Negative. Musculoskeletal: Positive for back pain. Negative for arthralgias, gait problem, joint swelling, myalgias, neck pain and neck stiffness. Neurological: Positive for dizziness. Negative for seizures, facial asymmetry, speech difficulty, light-headedness, numbness and headaches. Physical Exam BP 165/72 Pulse 83 Temp (Src) 97.7 (Oral) Resp 18 SpO2 100% Physical Exam Constitutional: He appears well-developed and well-nourished. No distress. HENT: Head: Normocephalic and atraumatic. Eyes: Pupils are equal, round, and reactive to light. Cardiovascular: Normal rate, regular rhythm, normal heart sounds and intact distal pulses. Pulmonary/Chest: Effort normal. No accessory muscle usage. No tachypnea. No respiratory distress. He has rales. Abdominal: Soft. Bowel sounds are normal. There is tenderness in the right lower quadrant and left lower quadrant. Skin: He is not diaphoretic. Diagnostic Testing ED Labs Ordered and Reviewed - No data to display Procedures ED Course / Clinical Impression Clinical Impressions as of May 06 99 Chest pain, unspecified type MDM / Disposition / Plan Patient admitted with chest pain and abdominal pain and also a mechanical fall one hour before admission. His past history as above in HPI. Patient has history of opoid abuse, and multiple prior admission for pain medication seeking, his PDMT report reviewed, he has taken pain medications from multiple providers in the past. His Hs trop turned positive, we planned to admit the patient to CDU for observation and to get the troponin x3. But patient left without telling any one. Patient left the room without informing. DispositionThe patient was other (comment) and AMA. Condition at disposition is stable. SIGNATURE: MD Gretchen Chaparro (Res) Adamaris Resident 05/06/18 0106 Attending Note I evaluated the patient and personally participated in the nelson components. I agree with the resident's findings and plan with the following revisions and/or additions: Pt with prior drug seeking behavior presented with chest and body pain. High sensitivity trop was elevated, bu the patient eloped because he didn;t receive narcotics. Signature: Cassi Solano MD Date: 05/06/2018 Time: 6:33 PM Cassi Solano MD 05/06/18 1834 EKG1 Observed: 05/05/2018 Status: F Source: [place] 8:35 PM [facility] REPOSITORY NAME : MAXX KNOTT PID : [id number] : 1950 Gender : Male Race : ORD : Procedure Date : May 05 2018 20:35:34 Edit Date : May 06 2018 17:31:02 Diagnosis:NORMAL SINUS RHYTHM POSSIBLE LEFT ATRIAL ENLARGEMENT POSSIBLE INFERIOR MYOCARDIAL INFARCTION , AGE UNDETERMINED ANTEROLATERAL T WAVE ABNORMALITY ABNORMAL ECG NOTE: PLEASE SEE PHYSICIAN'S NOTE FROM E.D. VISIT Confirmed by CASSI SOLANO MD ([id number]), news assignment editor CARLOS A LIRA ([id number]) on 05/06/2018 5:30:56 PM Ventricular Rate : 71 BPM Atrial Rate : 71 BPM P-R Interval : 190 ms QRS Duration : 106 ms Q-T Interval : 402 ms QTC Calculation(Bezet) : 436 ms P Powderhorn : 53 degrees R Powderhorn : 55 degrees T Powderhorn : -45 degrees Test Reason : Location : 2 : EDNS Overread By : CASSI SOLANO MD Edited By : CARLOS A LIRA Referred By : , Acquired by : DW, DISCHARGE SUMMARY Observed: 04/21/2018 Status: F Source: [place] 5:46 PM [facility] REPOSITORY [facility] Medical Records Department [address] [place] [address] Discharge Summary 04/21/18 1442 MR#: [id number] Acct: [id number] Name: MAXX KNOTT Rep #: [id number] : 1950 67 From: Mirtha Huang ROUTING MACHINE OPERATOR-C PCP: [facility], [place] Status: DIS MAGGI Y Location: [place] [address]-1 <Mirtha Huang - Last Filed: 04/21/18 13:18> Discharge Date and Diagnosis Date of Admission: 04/20/18 Date of Discharge: 04/21/18 - Primary Discharge Diagnosis 1. Chest pain, chronic- ACS ruled out 2. Hyperkalemia, resolved 3. Prolapsed colostomy, resolved 4. Hypertension, poorly controlled due to noncompliance with medication regimen 5. CAD status post CABG and stents 6. History of arrhythmia status post pacemaker 7. Hyperlipidemia 8. COPD Hospital Course and Treatment Imaging Results: Diagnostic Data Acute Abdomen Series 04/20/18 21:54 IMPRESSION: Nonspecific bowel gas pattern. Electronically Signed: Ana Javed MD at 22:23 EST Tel , Service support , Dr. Land- General Surgery Operations: None Procedures: None Summary of Care Provided: The patient is a 67 year old M admitted 04/20/2018 due to chest pain and stomal prolapse. He has a past medical history of CAD status post CABG and stents, arrhythmia status post pacemaker placement, hypertension, hyperlipidemia, status post transverse loop colostomy secondary to perforated diverticulitis, COPD, tobacco dependence, obesity. Patient has frequent visits to multiple emergency rooms due to chest pain and stomal prolapse. Patient reported to have at least 15 admissions in the [facility] this year alone. Patient previously referred to colorectal surgery at [facility] for consideration of stomal takedown. Due to patient's risk factors and no obstructive symptoms, it was concluded that risks outweigh benefits of performing this. Abdominal x-ray showed no abnormal bowel gas pattern. Dr. Land consulted. Recommending trying to use an inverting wafer with a smaller opening to keep stoma prolapse reduced. Also recommending enterostomal therapy evaluation as outpatient. Patient was referred to Ally Becerra user experience researcher who patient can follow with on an outpatient basis. Colostomy prolapse reduced in ER. EKG without ST changes. Troponin negative. Patient underwent pharmacologic stress test 04/20/2018 at [facility] due to chest pain. Stress test showed a large area of fixed perfusion defect of the inferior segment. No ischemia was identified. ECG gated images demonstrated normal LV size and severely reduced myocardial contractility with an LV ejection fraction of 28%. Patient was discharged from [facility] yesterday following stress test, EKG and serial troponins all which were negative. ACS ruled out. Repeat stress test cancelled. Patient will follow up with primary communication specialist, Dr. Anne. Continue aspirin, statin, metoprolol. Patient's blood pressure elevated admission due to noncompliance with medication regimen. Blood pressure stable on prescribed home regimen. Hyperkalemia resolved. OARRS report shows 53 total prescribers at 19 total pharmacies. Suspect malingering. [facility]. Follow-up with primary machine operator hop worker 1-2 weeks. supervisor policy change clerks follow up as previously mentioned. General: Alert, Oriented x3, Cooperative, No apparent distress HEENT: Atraumatic, PERRLA, EOMI, Normocephalic Oral: Moist Mucosa Neck: Supple, No JVD, Negative Carotid Bruits Lungs: Clear to auscultation, Normal air movement, No rhonchi, No wheeze, No rales Cardiovascular: Regular rate, Regular Rhythm, Normal S1, Normal S2, No murmurs Abdomen: Bowel Sounds Present, Soft, Non Tender, Non-Distended, colostomy bag intact Extremities: No clubbing, No cyanosis, No edema, Capillary Refill Less than 3 Seconds Skin: No rashes, No breakdown Musculoskeletal: No Tenderness to Palpation of Joints or Extremities Lymphatic: No Cervical, Supraclavicular, or Inguinal Adenopathy Neurological: Cranial nerves II-XII grossly intact, Neuro grossly intact Psych/Mental Status: Normal Affect, Appropriate Patient seen and examined prior to discharge. Physical assessment as noted above. Patient is stable for discharge with follow up recommendations as noted above. This patient was seen by JACQUELINE Martin under the supervision of Dr. Appiah. - Physical Exam Vital Signs Temp Pulse Resp BP Pulse Ox 97.7 F L 65 18 125/64 H 96 04/21/18 10:00 04/21/18 10:00 04/21/18 10:00 04/21/18 10:00 04/21/18 10:00 Oxygen Flow Rate (L/min) 2 Oxygen Delivery Method Room Air Weight: 188 lb 14.978 oz Body Mass Index (BMI) 28.7 Intake and Output for Last 24 Hours Intake Total 240 / 240 Output Total 100 / 100 Balance 140 / 140 Laboratory Tests Past 24 Hrs WBC 10.5 RBC 4.54 L Hgb 14.3 Hct 42.3 MCV 93.2 MCH 31.5 Discharge Diet: Low fat/ Low Cholesterol Call your doctor if you observe: Fever of 101 or Higher, Uncontrolled pain Home Medications: Medications to take at Discharge Albuterol Inhaler [Ventolin Hfa] 2 puff INHALATION Q6H PRN PRN 12/15/16 Aspirin E.C. [Ecotrin] 81 mg PO DAILY@0800 12/15/16 Furosemide [Lasix] 40 mg PO DAILY PRN 12/15/16 Gabapentin [Neurontin] 600 mg PO QHS 12/15/16 Losartan Potassium [Cozaar] 100 mg PO DAILY 12/15/16 Metoprolol(XL)Succ [Toprol Xl (Beta Kyra)] 100 mg PO QHS 12/15/16 Multivitamin,Therapeutic [Thera] 1 each PO DAILY 12/15/16 Nitroglycerin [Nitrostat] 0.4 mg SL Q5M PRN 12/15/16 Pravastatin [Pravachol] 40 mg PO QHS 12/15/16 Quetiapine Fumarate [Seroquel] 400 mg PO QHS 12/15/16 Vitamin B Complex/Folic Acid [Super B Maxi Complex Caplet] 0.4 mg PO DAILY 12/15/16 Ondansetron [Zofran Odt] 4 mg PO Q8H PRN PRN #10 tablet 12/20/16 Amlodipine [Norvasc] 10 mg PO DAILY 12/31/16 Hydrocodone/Acetaminophen [Hydrocodone-Acetamin 5-325 mg] 2 tab PO Q6H 04/21/18 Primary Care Physician: [facility] [Primary Care Provider] - Please follow up with your Primary Care Physician in: 1 Week Please Follow Up With: Ally Becerra - [phone] When: Call during business hours to schedule appointment with user experience researcher Please Follow Up With: Primary communication specialist, Dr. Anne When: 1-2 Weeks Please Follow Up With: Primary Manager Copy When: 1-2 Weeks Disposition: Home Minutes spent on discharge:: 35 Patient Condition:: Stable Medical Necessity - Tobacco Use Smoking Status: Current every day smoker Tobacco Use: Cigarettes, Pipe Meaningful Use Info Meaningful Use Diagnoses (Choose all that apply): None applicable <Jean Pierre Appiah - Last Filed: 04/21/18 17:46> Hospital Course and Treatment Summary of Care Provided: This patient was seen in conjunction with Mirtha ABREU. I have independently interviewed and examined the patient and reviewed pertinent history, examination findings, laboratory and plan of management. I have reviewed the note and agree with the documented findings with the few additional points. In brief, patient is admitted for atypical persistent chest pain for several hours. Serial troponin enzymes are negative. EKG not suggestive of ischemia. Patient also had a stress test on 04/18/2018 as mentioned above and was negative for stress- induced ischemia but large area of past myocardial injury. Patient has CABG and stents. Further discussed with Dr. North regarding colostomy prolapse. Because of noncompliance, his colorectal surgeon in [facility] said no further need to follow-up and is also high risk surgical candidate. I have discussed my assessment with Mirtha ABREU and orders have been reviewed. [] Discharge medication reconciliation done. Follow-up completed. Follow-up with communication specialist and PCP Subjective: Seen and examined. Patient had a history of multiple ER visits Patient lives in [place] and had multiple ER visits in [facility] in [facility]. His communication specialist in [place]. Patient said he had a chest pain for several hours at least 3 4 hours but is still his troponins are normal Discussed with Dr. North. He was referred to [facility] colorectal surgeon but because of his noncompliance and high surgical risk, he told there is no need for further follow-up with a colorectal surgeon - Physical Exam General: Alert, Oriented x3, Cooperative HEENT: Atraumatic, PERRLA, EOMI, Normocephalic Neck: Supple, No JVD, Negative Carotid Bruits Lungs: Diminished - Air entry diminished bilaterally, Rhonchi - Mild rhonchi. Egophony present Cardiovascular: Regular rate, Regular Rhythm, Normal S1, Normal S2, No murmurs, - - PVCs on monitor Abdomen: Bowel Sounds Present, Soft, Non Tender, Non-Distended, - - Colostomy. Prolapse of colostomy. Formed stool in colostomy bag Extremities: No edema, Capillary Refill Less than 3 Seconds Skin: No rashes, No breakdown Musculoskeletal: No Tenderness to Palpation of Joints or Extremities Neurological: Cranial nerves II-XII grossly intact Psych/Mental Status: Normal Affect, Appropriate Vital Signs Temp Pulse Resp BP Pulse Ox 97.7 F L 69 18 125/64 H 96 04/21/18 10:00 04/21/18 11:03 04/21/18 10:00 04/21/18 10:00 04/21/18 10:00 Oxygen Flow Rate (L/min) 2 Oxygen Delivery Method Room Air Weight: 188 lb 14.978 oz Body Mass Index (BMI) 28.7 Intake and Output for Last 24 Hours Intake Total 840 / 840 Output Total 100 / 100 Balance 740 / 740 Laboratory Tests Past 24 Hrs WBC 10.5 RBC 4.54 L Hgb 14.3 Hct 42.3 MCV 93.2 MCH 31.5 Code Visit OBSV E AND M: 17200 Observation care discharge 04/21/18 1318 <Electronically signed by Mirtha PALOMINOC> Date Mirtha PALOMINOC 04/21/18 1746<Electronically signed by Jean Pierre Appiah MD> Cosigner Signature (if applicable): Date Jean Pierre Appiah MD CC: ROUTING MACHINE OPERATOR-C Mirtha Huang; [facility]; Jean Pierre Appiah MD Signed DISCHARGE INSTRUCTION Observed: 04/21/2018 Status: F Source: [place] 12:51 PM [facility] REPOSITORY [facility] Medical Records Department [address] [place] [address] Instructions for Home/Discharge Instructions 04/21/18 1242 MR#: [id number] Acct: [id number] Name: MAXX KNOTT Rep #: [id number] : 1950 67 From: Mirtha Huang ROUTING MACHINE OPERATORSafia PCP: [facility], [place] Status: ADM MAGGI You will use the following diet at home:: Cardiac Discharge Activity: Return to Normal Activity Call your doctor if you observe: Fever of 101 or Higher, Uncontrolled pain Allergies/Adverse Reactions: Allergies atorvastatin Allergy (Verified 04/21/18 00:28) Angioedema diclofenac [From Voltaren] Allergy (Verified 04/21/18 00:28) Angioedema hydrochlorothiazide Allergy (Verified 04/21/18 00:28) Angioedema moxifloxacin Allergy (Verified 04/21/18 00:28) Angioedema ramipril Allergy (Verified 04/21/18 00:28) Angioedema rosuvastatin [From Crestor] Allergy (Verified 04/21/18 00:28) Angioedema simvastatin Allergy (Verified 04/21/18 00:28) Angioedema ticagrelor [From Brilinta] Allergy (Verified 04/21/18 00:28) Shortness of breath Medications to take at Discharge Albuterol Inhaler [Ventolin Hfa] 2 puff INHALATION Q6H PRN PRN 12/15/16 Aspirin E.C. [Ecotrin] 81 mg PO DAILY@0800 12/15/16 Furosemide [Lasix] 40 mg PO DAILY PRN 12/15/16 Gabapentin [Neurontin] 600 mg PO QHS 12/15/16 Losartan Potassium [Cozaar] 100 mg PO DAILY 12/15/16 Metoprolol(XL)Succ [Toprol Xl (Beta Kyra)] 100 mg PO QHS 12/15/16 Multivitamin,Therapeutic [Thera] 1 each PO DAILY 12/15/16 Nitroglycerin [Nitrostat] 0.4 mg SL Q5M PRN 12/15/16 Pravastatin [Pravachol] 40 mg PO QHS 12/15/16 Quetiapine Fumarate [Seroquel] 400 mg PO QHS 12/15/16 Vitamin B Complex/Folic Acid [Super B Maxi Complex Caplet] 0.4 mg PO DAILY 12/15/16 Ondansetron [Zofran Odt] 4 mg PO Q8H PRN PRN #10 tablet 12/20/16 Amlodipine [Norvasc] 10 mg PO DAILY 12/31/16 Hydrocodone/Acetaminophen [Hydrocodone-Acetamin 5-325 mg] 2 tab PO Q6H 04/21/18 Primary Care Physician: [facility] [Primary Care Provider] - Please follow up with your Primary Care Physician in: 1 Week Test Results: Test results from this visit will be discussed in further detail at your follow-up appointment, if applicable. Please Follow Up With: Ally Becerra - [phone] When: Call during business hours to schedule appointment with user experience researcher Please Follow Up With: Primary communication specialist, Dr. Anne When: 1-2 Weeks Please Follow Up With: Primary Manager Copy When: 1-2 Weeks Proposed Discharge Date: 04/21/18 04/21/18 1251 <Electronically signed by Mirtha PHILLIPS> Date Mirtha PHILLIPS CC: [facility]; Bijan Land MD Signed CONSULTATION Observed: 04/21/2018 Status: F Source: [place] 9:55 AM [facility] REPOSITORY [facility] Medical Records Department [address] [place] [id number] Consultation 04/21/18 0945 MR#: [id number] Acct: [id number] Name: MAXX KNOTT Rep #: [id number] : 1950 67 From: Bijan Land MD PCP: [place], [place] Status: ADM MAGGI Y Location: [address] Reason for Consult Date of Consultation: 04/21/18 Reason for Consultation: stoma prolapse History of Present Illness: The patient is a 67 year old M who was treated with a transverse loop colostomy for perforated diverticulitis. the patient has a complex medical history of coronary disease status post coronary bypass 10 years previously and multiple stent placements along with pacemaker placement. he has a history of COPD uses BiPAP and continues to smoke daily. He underwent a presumed transverse loop colostomy in July 2016. 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 He has no signs of bowel obstruction with the stomal prolapse. He has been present in our emergency department in the past to have this reduced. The patient has frequent visits to multiple emergency departments due to chest pain, falls, and stomal prolapse. I noted at least 15 admissions in the [facility] system this year and to numerous to count emergency department visits. He had been transferred to colorectal surgery at [facility] for consideration of stoma takedown. Due to the lack of obstructive symptoms, the patient's medical comorbidities and poor adherence to plan treatment including no-shows to many visits, it was concluded that risks of takedown exceed the benefits. His last ER visits were noted to be 3 and 6 days prior to admission to [place]. he presents to [facility] with complaint of chest pain and again stomal prolapse. The stoma was able to be reduced in the emergency department.Abdominal x-ray obtained demonstrates no abnormal bowel gas pattern. The patient is currently resting comfortably with his BiPAP mask on area the patient's stoma bag is quite distended from air without signs of significant prolapse currently. the patient denies abdominal pain to me Past Medical History Allergies atorvastatin Allergy (Verified 04/21/18 00:28) Angioedema diclofenac [From Voltaren] Allergy (Verified 04/21/18 00:28) Angioedema hydrochlorothiazide Allergy (Verified 04/21/18:28) Angioedema moxifloxacin Allergy (Verified 04/21/18:28) Angioedema ramipril Allergy (Verified 04/21/18 00:28) Angioedema rosuvastatin [From Crestor] Allergy (Verified 04/21/18 00:28) Angioedema simvastatin Allergy (Verified 04/21/18:28) Angioedema ticagrelor [From Brilinta] Allergy (Verified 04/21/18:28) Shortness of breath Home Medications: Ambulatory Orders Medication Instructions Recorded Albuterol Inhaler [Ventolin Hfa 2 puff INHALATION Q6H PRN PRN 12/15/16 Surgical History: - - colectomy s/p colostomy, pacemaker insertion Psychiatric History: No pertinent psych hx Lives: Alone Smoking Status: Current every day smoker Tobacco Use: Cigarettes, Pipe Alcohol: None Drugs: None - *Family History Paternal History Items: High Cholesterol, Heart Disease, Hypertension Maternal History Items: No pertinent history - Physical Exam General: Alert, Oriented x3 Lungs: Clear to auscultation, Diminished Cardiovascular: Regular rate, Regular Rhythm, - - distant Abdomen: Soft, Non Tender, - - stoma bag in place held in place with belt. Stoma bag very distended from bypass air. Visual inspection reveals no significant stomal prolapse Vital Signs Temp Pulse Resp BP Pulse Ox 98.4 F 66 18 159/66 H 95 04/21/18 06:07 04/21/18 07:06 04/21/18 06:20 04/21/18 06:07 04/21/18 06:20 Oxygen Flow Rate (L/min) 2 Oxygen Delivery Method CPAP Weight: 85.7 kg Body Mass Index (BMI) 28.7 Intake and Output for Last 24 Hours Intake Total 240 / 240 Output Total 100 / 100 Balance 140 / 140 Laboratory Tests Past 24 Hrs WBC 10.5 RBC 4.54 L Hgb 14.3 Hct 42.3 MCV 93.2 MCH 31.5 Assessment/Plan chronic recurring chest pain, and cardiac disease, felt to be high risk for colostomy reversal due to noncompliance and medical comorbidities. At this point there is not much I can offer for this gentleman beyond you trying to use an inverting wafer with a smaller opening in the colostomy wafer to keep the stoma prolapse reduced. Recommend enterostomal therapy evaluate patient to see if they have additional recommendations. 04/21/18 0955 <Electronically signed by Bijan Land MD> Date Bijan Land MD Cosign Signature (if applicable): Date CC: [facility]; Bijan Land MD Signed HISTORY AND PHYSICAL Observed: 04/21/2018 Status: F Source: [place] EXAM 4:41 AM [facility] REPOSITORY [facility] Medical Records Department [address] [place] [address] History and Physical 04/20/18 2332 MR#: [id number] Acct: [id number] Name: MAXX KNOTT Rep #: [id number] : 1950 67 From: Lena Christianson MD PCP: [facility] [place] Status: ADM MAGGI Y Location: [place] [address] History of Present Illness Date of Admission: 04/20/18 Chief Complaint: chest pain The patient is a 67 year old M with past medical history of CAD status post CABG and stents x4, arrythmia s/p pacemaker placement, diverticulosis status post colectomy and colostomy bag placement and hypertension. He was admitted through the ED on 04/20/2018 with a complaint of chest pain which started around 8 PM on the night of presentation. Chest pain was pressure-like and sharp at the same time, episodic, aggravated by exertion and relieved by rest. He had assisted lightheadedness and dizziness and some shortness of breath. He also admitted to fever and chills but did have a cough. He also complained of prolapse of his colostomy with chest pain. He denied any history of recent travel or weight loss or any history of PE or DVT. Vitals in the ED was significant for elevated blood pressure 157/72 and was saturating 95% on 2 L of oxygen. CBC was unremarkable and BMP was significant for potassium of 5.2. He did admit to eating a lot of oranges and bananas at home. Initial troponin was negative and EKG showed no acute ST changes. He had an abdominal x-ray which showed nonspecific bowel gas pattern. The prolapsed colostomy was successfully reduced in the ED. He is been admitted to be managed for chest pain to rule out ACS. [] Past Medical History Allergies atorvastatin Allergy (Verified 04/20/18 20:31) Angioedema diclofenac [From Voltaren] Allergy (Verified 04/20/18 20:31) Angioedema hydrochlorothiazide Allergy (Verified 04/20/18 20:31) Angioedema moxifloxacin Allergy (Verified 04/20/18 20:31) Angioedema ramipril Allergy (Verified 04/20/18 20:31) Angioedema rosuvastatin [From Crestor] Allergy (Verified 04/20/18 20:31) Angioedema simvastatin Allergy (Verified 04/20/18 20:31) Angioedema ticagrelor [From Brilinta] Allergy (Verified 04/20/18 20:31) Shortness of breath Home Medications: Ambulatory Orders Medication Instructions Recorded Surgical History: - - colectomy s/p colostomy, pacemaker insertion Psychiatric History: No pertinent psych hx Lives: Alone Smoking Status: Current every day smoker Tobacco Use: Cigarettes, Pipe Alcohol: None Drugs: None - *Family History Paternal History Items: High Cholesterol, Heart Disease, Hypertension Maternal History Items: No pertinent history Review of Systems Constitutional: Denies: Chills, Fever, Malaise, Weakness, Weight Change, Fatigue Eyes: Denies: Blurred vision HEENT: Denies: Head Aches, Sinus Congestion, Sinus Drainage Cardiovascular: Reports: Chest Pain, Chest Pressure. Denies: Chest Tightness, Edema, Heaviness, Light Headedness, Orthopnea, Palpitations, Paroxysmal Noc. Dyspnea, Syncope Respiratory: Reports: Shortness of breath upon exertion. Denies: Cough, Shortness of Breath, Shortness of breath at rest, Sputum production Gastrointestinal: Denies: Abdominal Pain, Nausea, Vomiting Genitourinary: Denies: Dysuria Musculoskeletal: Denies: Joint Pain, Joint Tenderness Skin: Denies: Rash, Wounds Neurological: Denies: Numbness, Tingling, Focal weakness Psychiatric: Denies: Anxiety, Depression, Homicidal Ideations, Suicidal Ideations Hematologic/ Lymphatic: Denies: Easy Bruising, Easy Bleeding VTE Information - Inpt Only VTE Present on Admission: No VTE Pharm Prophylaxis ordered?: Yes - Physical Exam General: Alert, Oriented x3, Cooperative, No apparent distress HEENT: Atraumatic, PERRLA, EOMI, Normocephalic Oral: Moist Mucosa Neck: Supple, No JVD, Negative Carotid Bruits Lungs: Clear to auscultation, Normal air movement, No rhonchi, No wheeze, No rales Cardiovascular: Regular rate, Regular Rhythm, Normal S1, Normal S2, No murmurs Abdomen: Bowel Sounds Present, Soft, Non Tender, Non-Distended, No Hepato-splenomegaly, - - has colostomy bag filled with formed stool Extremities: No clubbing, No cyanosis, No edema, Capillary Refill Less than 3 Seconds Skin: No rashes, No breakdown Musculoskeletal: No Tenderness to Palpation of Joints or Extremities Lymphatic: No Cervical, Supraclavicular, or Inguinal Adenopathy Neurological: Cranial nerves II-XII grossly intact, Neuro grossly intact, Motor Exam 5/5 strength throughout Psych/Mental Status: Normal Affect, Appropriate, Alert and oriented to time, place, person, mood and affect Vital Signs Temp Pulse Resp BP Pulse Ox 97.8 F 60 18 157/72 H 95 04/20/18 20:23 04/20/18 23:05 04/20/18 23:05 04/20/18 23:05 04/20/18 23:05 Oxygen Flow Rate (L/min) 2 Oxygen Delivery Method Nasal Cannula Weight: 1931 lb 14.571 oz Body Mass Index (BMI) 293.7 Laboratory Tests Past 24 Hrs Diagnostic Data Acute Abdomen Series 04/20/18 21:54 IMPRESSION: Nonspecific bowel gas pattern. Electronically Signed: Ana Javed MD at 22:23 EST Tel , Service support , Assessment/Plan 67-year-old male presenting with a complaint of chest pain 1. Chest pain rule out ACS * initial troponin negative. Initial EKG showed no acute ST changes * admit to PCU with telemetry * cycle troponins * for stress test on Sunday * PO aspirin 81mg daily, SL nitroglycerin prn * on statin, will continue 2. Hyperkalemia * K was 5.2 on admission; says he eats a lot of bananas and oranges, which could have contributed to hyperkalemia * currently asymptomatic; EKG showed no acute changes * will give PO kayexalate 15gram once 3. Hypertension * poorly controlled. * BP at time of review was in 170s systolic * says he's compliant with his meds nad has taken them today * on amlodipine 10mg daily, losartan 100mgd ailya nd metoprolol 100mg qhs * IV hydralazine prn 4. CAD status post CABG and stents * Has had 4 stents placed last of which was about a year ago. Patient cannot remember where he had the stents placed. Had a CABG in 2005. * On aspirin 81 mg daily and statin. * 5. History of arrhythmia status post pacemaker placement: stable. will monitor 6. Status post colectomy and colostomy bag placement: * colostomy was prolapsed on admission,a nd was successfully reduced in ED * abdominal xray showed nonspecific abdominal gas pattern * will monitor * DVT prophylaxis: heparin Code Visit OBSV E AND M: [id number] Initial observation care L3 04/21/18 0441 <Electronically signed by Lena Christianson MD> Date Lena Christianson MD Cosigner Signature: Date (if applicable) CC: [facility]; Lena Christianson MD Signed CBC W/DIFF, AUTOMATED Collected: 04/21/2018 Status: F Source: [place] 3:36 AM [facility] REPOSITORY TYPE CODE TESTS RESULT OUT OF RANGE REFERENCE UNITS LAB L100.1000 4.4-11.0 K/mm3 Normal WBC 10.5 LAB L100.1200 4.6-6.2 M/mm3 Low RBC 4.54 LAB L100.1300 13.0-16.5 g/dl Normal HGB 14.3 LAB L100.1400 40-54 % Normal HCT 42.3 LAB L100.1500 80-94 fL Normal MCV 93.2 LAB L100.1600 27.0-32.0 pg Normal MCH 31.5 LAB L100.1700 32-36 g/gl Normal MCHC 33.8 LAB L100.1810 11.6-14.6 % Normal RDW CV 14.5 LAB L100.1820 35.1-43.9 fl High RDW SD 47.5 LAB L100.1900 150-450 K/mm3 Normal PLT 260 LAB L100.2000 6.2-12.0 fl Normal MPV 10.1 LAB L100.2100 47-70 % Normal NEUT% 64.3 LAB L100.2200 19-41 % Normal LY% 25.8 LAB L100.2300 0-10 % Normal MONO% 7.0 LAB L100.2400 0-5 % Normal EO% 2.4 LAB L100.2500 0-1 % Normal BASO% 0.2 LAB L100.2550 0.0-0.9 % Normal IM GRAN % 0.300 Result Comment: IG% - Immature Granulocytes (promyelocytes, myelocytes and metamyelocytes) > 1% indicates that a LEFT SHIFT is Present. LAB L100.2620 2.0-7.7 X10 3/uL Normal Absolute Neut 6.8 LAB L100.2720 0.83-4.51 X10 3/ul Normal Absolute Lymph 2.71 Performed By: #### L100.0100 #### [facility] [address] [place], [address] BASIC METABOLIC Collected: 04/21/2018 Status: F Source: [place] PROFILE (BMP) 3:36 AM [facility] REPOSITORY TYPE CODE TESTS RESULT OUT OF RANGE REFERENCE UNITS LAB L501.0100 74-106 mg/dL High GLU 160 Result Comment: Fasting Glucose result greater than or equal to 126 mg/dL suggests DIABETES MELLITUS per A.D.A. criteria. Please note revised GLUCOSE reference range effective 2017. LAB L501.1000 7-18 mg/dL Normal BUN 14 LAB L501.1100 0.70-1.30 mg/dL Normal CREAT,SERUM 1.11 Result Comment: The validity of the calculated GFR AND GFRAA in patients over 70 years has not been determined. Clinical correlation is essential. LAB L501.1110 >60 mL/min Normal EST GFR 70 Result Comment: Non- GFR Calc LAB L501.1115 >60 mL/min Normal EST GFR - AA 85 Result Comment: GFR Calc LAB L501.1255 ml/min Normal Estimated CRCL 63.33 LAB L501.1300 10-20 RATIO Normal BUN/CRE 12.6 LAB L501.2200 8.5-10 mg/dL Normal .1 CA 9.1 LAB L501.5300 136-14 mmol/L Normal 5 NA 142 LAB L501.5600 3.5-5. mmol/L Low 1 K 3.4 LAB L501.5900 98-107 mmol/L Normal CL 105 LAB L501.6100 21.0-3 mmol/L Normal 2.0 CO2 29.0 LAB L501.6200 5-15 Normal GAP 8 Performed By: #### L500.2500, L501.5200 #### [facility] [address] [place], [address] MAGNESIUM Collected: 04/21/2018 Status: F Source: [place] 3:36 AM [facility] REPOSITORY TYPE CODE TESTS RESULT OUT OF RANGE REFERENCE UNITS LAB L501.5200 1.6-2.6 mg/dL Normal MG 1.8 Performed By: #### L500.2500, L501.5200 #### [facility] [address] [place], [address] TROPONIN-I Collected: 04/21/2018 Status: F Source: [place] 3:36 AM [facility] REPOSITORY Order Comment: 'TROP' Serial specimen #1, #2 or #3: 3 TYPE CODE TESTS RESULT OUT OF RANGE REFERENCE UNITS LAB L501.4010 <0.045 ng/mL Normal 0.018 TROPONIN-I Result Comment: TROPONIN-I EXPECTED VALUES <0.045 Negative 0.045 - 0.590 Consistent with Cardiac Damage > OR = 0.600 Critical Value Not every elevated troponin is indicative of FL. These values should be used with clinical judgement in examining the patient's clinical picture for diagnosis. To establish a diagnosis of FL versus myocardial injury, there must be a demonstrated rise and/or fall in the troponin values, in addition to ischemic symptoms, EKG changes, new regional wall motion abnormality, and/or angiographical evidence. PLEASE NOTE: REFERENCE RANGES EDITED 17 Performed By: #### L501.4010 #### [facility] [address] [place], [address] TROPONIN-I Collected: 04/21/2018 Status: F Source: [place] 12:47 AM [facility] REPOSITORY Order Comment: 'TROP' Serial specimen #1, #2 or #3: 2 TYPE CODE TESTS RESULT OUT OF RANGE REFERENCE UNITS LAB L501.4010 <0.045 ng/mL Normal < 0.015 TROPONIN-I Result Comment: TROPONIN-I EXPECTED VALUES <0.045 Negative 0.045 - 0.590 Consistent with Cardiac Damage > OR = 0.600 Critical Value Not every elevated troponin is indicative of FL. These values should be used with clinical judgement in examining the patient's clinical picture for diagnosis. To establish a diagnosis of FL versus myocardial injury, there must be a demonstrated rise and/or fall in the troponin values, in addition to ischemic symptoms, EKG changes, new regional wall motion abnormality, and/or angiographical evidence. PLEASE NOTE: REFERENCE RANGES EDITED 17 Performed By: #### L501.4010 #### [facility] [address] [place], [address] EMERGENCY DEPARTMENT Observed: 04/20/2018 Status: F Source: [place] SUMMARY 11:57 PM [facility] REPOSITORY [facility] Medical Records Department [address] [facility] [place] [address] Emergency Department Summary 04/20/182040 MR#: [id number] Acct: [id number] Name: MAXX KNOTT Rep #: [id number] : 1950 67 From: Milana Gaytan MD PCP: [place], [place] Status: ADM MAGGI - ER Visit Summary Date of Service: 04/20/18 Chief Complaint: Chest pain History of Present Illness: The patient is a 67 M who presents for 1 hour of chest pain located in the substernal region described as sharp and aching. Patient states it radiates into his back and is improved if he remains still. He has mild shortness of breath. No fever, cough, URI symptoms, urinary symptoms. He does have prolapse of his stoma from his colostomy that also occurred 1 hour at the time of chest pain onset. Patient has history of coronary artery disease status post triple bypass surgery. He takes a baby aspirin daily. He is a smoker. Physical Examination: Vital signs: afebrile, hypertensive, no hypoxia on room air General: well nourished, well developed, appears uncomfortable Skin: warm, dry, no rash, no pallor HEENT: normocephalic and atraumatic; PERRL, EOMI, moist mucous membranes Cardiovascular: regular rate and rhythm without murmurs, pacemaker noted in left upper chest, mid sternal scar, well-healed, no peripheral edema, 2+ pulses all distal extremities Respiratory: No increased work of breathing, lungs are clear to auscultation bilaterally, no rales, rhonchi or wheezing Abdominal: Abdomen is soft, large prolapsed intestine through the right colostomy stoma, tender to palpation, pink and moist, no duskiness, still outputing stool, MSK: Moves all extremities, no deformities, normal strength Neuro: Awake and alert, oriented 4. No facial droop, sensation and motor function intact and symmetric Test Results: Abnormal Lab Results Clinical Impression(s) from Imaging Studies Acute Abdomen Series 04/20/18 21:54 IMPRESSION: Nonspecific bowel gas pattern. Electronically Signed: Ana Javed MD at 22:23 EST Tel , Service support , Medications Given Sodium Chloride () 1,000 mls @ 250 mls/hr IV .Q4H [facility] Last Admin: 04/20/18 22:15 Dose: 250 mls/hr Discontinued Medications Aspirin (Aspirin, Baby) 324 mg PO X1 STA Stop: 04/20/18 20:40 Last Admin: 04/20/18 21:14 Dose: 324 mg Morphine Sulfate () 4 mg IV X1 ONE Stop: 04/20/18 20:40 Last Admin: 04/20/18 21:08 Dose: 4 mg Morphine Sulfate () 8 mg IM X1 ONE Stop: 04/20/18 21:25 Last Admin: 04/20/18 21:29 Dose: 8 mg Nitroglycerin (Nitrostat) 0.4 mg SUBLINGUAL Q5M MEDHAT Stop: 04/20/18 20:56 Last Admin: 04/20/18 21:26 Dose: 0.4 mg Admin: 04/20/18 21:20 Dose: 0.4 mg Admin: 04/20/18 21:15 Dose: 0.4 mg Ondansetron HCl (Zofran) 4 mg IV X1 ONE Stop: 04/20/18 20:42 Last Admin: 04/20/18 21:08 Dose: 4 mg Ondansetron HCl (Zofran) 8 mg PO X1 ONE Stop: 04/20/18 23:12 Last Admin: 04/20/18 23:15 Dose: 8 mg Emergency Department Course and Treatment: Patient has significant cardiac history and presents with substernal chest pain for 1 hour with associated shortness of breath and nausea. Patient also concurrently has prolapse of his intestines through his colostomy stoma. Prior chart review shows that patient has presented with similar complaints multiple times. However there is no cardiac workup noted for the patient in his records that would be indicative of recent cardiac rule out. Patient received nitro and morphine, with improvement of his discomfort secondary to his stoma, but he will continue to complain of the chest discomfort. EKG showed sinus rhythm, first-degree block, with no ischemic changes, similar to prior EKGs. Troponin negative. Potassium very mildly elevated at 5.2, with no EKG changes. Otherwise no lab abnormalities. Abdominal series showed no sign of infiltrates in the chest and no sign of an obstructive bowel gas pattern. Patient received Zofran for nausea and additional morphine for pain. His prolapsed intestine through the stoma was easily reducible, and would slowly pop back out, but remain pink, well-perfused, with normal stool output and no sign of strangulation or incarceration. Because patient does have significant cardiac history and based on his age, his heart score puts him in the moderate risk range for ACS. Patient will be admitted for chest pain rule out. Patient was discussed with Dr. Christianson for admission observation status to the PCU. Upon reevaluation, patient's hypertension present on initial evaluation had greatly improved. 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 It may contain incorrect words, spelling, and punctuation that were not noted in review of the chart prior to signing ED Disposition - Plan for ED Patient: Chief Complaint: Chest Pain Referrals: [facility] [Primary Care Provider] - What to do if you have Problems For any increased pain, shortness of breath, bleeding, nausea or vomiting, chest pain, or any unexpected problems, contact your Primary Care Provider. Call [facility] ([phone]) or report to the closest Emergency Room. Call 911 if necessary. 04/20/18 6822 <Electronically signed by Milana Gaytan MD> Date Milana Gaytan MD Cosigner Signature (If Indicated): Date CC: [facility] CBC W/DIFF, AUTOMATED Collected: 04/20/2018 Status: F Source: [place] 9:45 PM [facility] REPOSITORY TYPE CODE TESTS RESULT OUT OF RANGE REFERENCE UNITS LAB L100.1000 4.4-11.0 K/mm3 Normal WBC 10.0 LAB L100.1200 4.6-6.2 M/mm3 Normal RBC 4.76 LAB L100.1300 13.0-16.5 g/dl Normal HGB 15.0 LAB L100.1400 40-54 % Normal HCT 44.2 LAB L100.1500 80-94 fL Normal MCV 92.9 LAB L100.1600 27.0-32.0 pg Normal MCH 31.5 LAB L100.1700 32-36 g/gl Normal MCHC 33.9 LAB L100.1810 11.6-14.6 % Normal RDW CV 14.3 LAB L100.1820 35.1-43.9 fl High RDW SD 47.3 LAB L100.1900 150-450 K/mm3 Normal PLT 275 LAB L100.2000 6.2-12.0 fl Normal MPV 10.3 LAB L100.2100 47-70 % Normal NEUT% 68.7 LAB L100.2200 19-41 % Normal LY% 21.6 LAB L100.2300 0-10 % Normal MONO% 7.7 LAB L100.2400 0-5 % Normal EO% 1.6 LAB L100.2500 0-1 % Normal BASO% 0.3 LAB L100.2550 0.0-0.9 % Normal IM GRAN % 0.100 Result Comment: IG% - Immature Granulocytes (promyelocytes, myelocytes and metamyelocytes) > 1% indicates that a LEFT SHIFT is Present. LAB L100.2620 2.0-7.7 X10 3/uL Normal Absolute Neut 6.8 LAB L100.2720 0.83-4.51 X10 3/ul Normal Absolute Lymph 2.15 Performed By: #### L100.0100 #### [facility] [address], [address] PROTHROMBIN TIME W/INR Collected: 04/20/2018 Status: F Source: [place] 9:45 PM [facility] REPOSITORY TYPE CODE TESTS RESULT OUT OF RANGE REFERENCE UNITS LAB L300.4150 11.7-14.9 SECONDS Normal PROTIME 14.2 LAB L300.4200 Normal INR 1.1 Performed By: #### L300.3900, L300.4310 #### [facility] [address] [place], [address] PARTIAL THROMBOPLAST Collected: 04/20/2018 Status: F Source: [place] TIME 9:45 PM [facility] REPOSITORY TYPE CODE TESTS RESULT OUT OF RANGE REFERENCE UNITS LAB L300.4310 24.1-36.2 Seconds Normal PTT 31.5 Performed By: #### L300.3900, L300.4310 #### [facility] [address] [facility] [place], [address] COMPREHENSIVE METABOLIC Collected: 04/20/2018 Status: F Source: [place] PROFIL 9:45 PM [facility] REPOSITORY TYPE CODE TESTS RESULT OUT OF RANGE REFERENCE UNITS LAB L501.0100 74-106 mg/dL Normal GLU 106 Result Comment: Fasting Glucose result from 100 to 125 mg/dL suggests IMPAIRED HOMEOSTASIS per A.D.A. criteria. Please note revised GLUCOSE reference range effective 2017. LAB L501.1000 7-18 mg/dL Normal BUN 14 LAB L501.1100 0.70-1.30 mg/dL Normal CREAT,SERUM 1.13 Result Comment: The validity of the calculated GFR AND GFRAA in patients over 70 years has not been determined. Clinical correlation is essential. LAB L501.1110 >60 mL/min Normal EST GFR 69 Result Comment: Non- GFR Calc LAB L501.1115 >60 mL/min Normal EST GFR - AA 83 Result Comment: GFR Calc LAB L501.1255 ml/min Normal Estimated CRCL 62.21 LAB L501.1300 10-20 RATIO Normal BUN/CRE 12.4 LAB L501.1500 6.4-8. g/dL Normal 2 T PROT 7.5 LAB L501.1800 3.2-5. g/dL Normal 0 ALB 3.7 LAB L501.1950 2.2-4. g/dL Normal 2 GLOB 3.8 LAB L501.2000 0.9-2. RATIO Normal 4 A/G 1.0 LAB L501.2200 8.5-10 mg/dL Normal .1 CA 9.7 LAB L501.4100 15-37 U/L Normal AST 35 Result Comment: Moderate Hemolysis, Result may be falsely increased. LAB L501.4305 45-117 U/L Normal ALK P 85 LAB L501.4405 16-61 U/L Normal ALT 39 LAB L501.4600 0.20-1.00 mg/dL Normal T BILI 0.50 LAB L501.5300 136-145 mmol/L Normal NA 139 LAB L501.5600 3.5-5.1 mmol/L High K 5.2 Result Comment: Moderate Hemolysis, Result may be falsely increased. LAB L501.5900 98-107 mmol/L Normal CL 102 LAB L501.6100 21.0-32.0 mmol/L Normal CO2 29.0 LAB L501.6200 5-15 Normal 8 GAP Performed By: #### L500.4050, L501.2450, L501.4010 #### [facility] [address] [facility] [facility] [place], [place], [id number] LIPASE Collected: 04/20/2018 Status: F Source: [place] 9:45 PM [facility] REPOSITORY TYPE CODE TESTS RESULT OUT OF REFERENCE UNITS RANGE LAB L501.2450 73-393 U/L Low LIPASE 70 Performed By: #### L500.4050, L501.2450, L501.4010 #### [facility] [address] [facility] [facility] [place], [address] TROPONIN-I Collected: 04/20/2018 Status: F Source: [place] 9:45 PM [facility] REPOSITORY TYPE CODE TESTS RESULT OUT OF RANGE REFERENCE UNITS LAB L501.4010 <0.045 ng/mL Normal < 0.015 TROPONIN-I Result Comment: TROPONIN-I EXPECTED VALUES <0.045 Negative 0.045 - 0.590 Consistent with Cardiac Damage > OR = 0.600 Critical Value Not every elevated troponin is indicative of FL. These values should be used with clinical judgement in examining the patient's clinical picture for diagnosis. To establish a diagnosis of FL versus myocardial injury, there must be a demonstrated rise and/or fall in the troponin values, in addition to ischemic symptoms, EKG changes, new regional wall motion abnormality, and/or angiographical evidence. PLEASE NOTE: REFERENCE RANGES EDITED 17 Performed By: #### L500.4050, L501.2450, L501.4010 #### [facility] [address] [facility] [facility] [place], [address] ACUTE ABDOMEN INC Observed: 04/20/2018 Status: F Source: [place] CHEST 8:41 PM [facility] REPOSITORY [facility] Imaging Services [address] [place] [address] Acute Abdomen Inc Chest MR#: [id number] Acct: [id number] Name: MAXX KNOTT Rep #: [id number] : 1950 67 From: Ana Javed MD PCP: [facility], [place] Status: REG ER Study: Acute Abdomen Inc Chest Date of Exam: 04/20/18 Exam# [id number] Ordering Dr: Milana Gaytan MD STUDY: X-RAY - ACUTE ABDOMINAL SERIES REASON FOR EXAM: Male, 67 years old. Chest pain with abdominal pain. TECHNIQUE: Single view of the chest. Supine, 3 view(s) of the abdomen were obtained. COMPARISON: March 31, 2018 FINDINGS: There is no new focal consolidation. There is stable eventration of the left hemidiaphragm. There is a dual-lead pacer device in place. There are sternotomy wires in place. The cardiac silhouette is within normal limits. Normal mediastinum and irene. Normal visualized pulmonary arteries. Normal visualized aortic arch and descending thoracic aorta. There is an ostomy noted within the right abdomen. There is a nonspecific bowel gas pattern. There are diffuse degenerative changes of the visualized lumbar spine. RAD/Acute Abdomen Inc Chest IMPRESSION: Nonspecific bowel gas pattern. Electronically Signed: Ana Javed MD at 22:23 EST Tel , Service support , CC: [facility]; Milana Gaytan MD Geriatric Physical Therapist: Signed ED NOTE Observed: 04/19/2018 Status: COMPLETED Source: [place] 10:45 AM [facility] REPOSITORY HNO ID: [id number] Author: Vazquez (Rn) MITCHELL Hammonds Service: Emergency Medicine Author Type: Registered Nurse Type: ED Notes Filed: 04/19/2018 12:56 PM Note Text: Registration informed this RN that pt was not in the room when she went into register pt. Gown found on bed but pt not in room. Pt left without care being started. EKG (AK,AV,EU,FV,HL,DEMARCO,MM,SP) Observed: Status: F Source: [place] 04/19/2018 9:45 AM [facility] REPOSITORY NAME : MAXX KNOTT PID : [id number] : 1950 Gender : Male Race : ORD : [id number] Procedure Date : Apr 19 2018 09:45:08 Edit Date : Apr 26 2018 01:07:52 Diagnosis:SINUS RHYTHM WITH FUSION COMPLEXES POSSIBLE LEFT ATRIAL ENLARGEMENT POSSIBLE INFERIOR INFARCT (CITED ON OR BEFORE 08-MAR-2018) T WAVE ABNORMALITY, CONSIDER LATERAL ISCHEMIA ABNORMAL ECG WHEN COMPARED WITH ECG OF 13-APR-2018 19:51, SINUS RHYTHM HAS REPLACED JUNCTIONAL RHYTHM SERIAL CHANGES OF INFERIOR INFARCT PRESENT POOR DATA QUALITY, INTERPRETATION MAY BE ADVERSELY AFFECTED Confirmed by MD CANTU AMY ([id number]) on 04/26/2018 1:07:49 AM Ventricular Rate : 84 BPM Atrial Rate : 84 BPM P-R Interval : 196 ms QRS Duration : 106 ms Q-T Interval : 356 ms QTC Calculation(Bezet) : 420 ms P Powderhorn : 40 degrees R Powderhorn : 29 degrees T Powderhorn : 85 degrees Test Reason : Chest Pain Location : 4 : [facility]1 Overread By : MD CANTU AMY Edited By : MD CANTU AMY Referred By : , Acquired by : GREYSON CRESPO ED PROV NOTE Observed: 04/19/2018 Status: COMPLETED Source: [place] 9:41 AM [facility] OTHER [facility] REPOSITORY O ID: [id number] Author: Maranda Burton MD Service: Emergency Medicine Author Type: Physician Type: ED Provider Notes Filed: 04/20/2018 9:28 PM Note Text: ED Provider Note Patient Name: Maxx Knott SERVICE DATE: 04/19/18 History Patient presents with: Chest Pain: The patient complains of nonradiating midsternal chest pain for 1 hour. The patient complains of SOB. The patient has no other complaints. Patient AANDOx4 MAEx4. The patient ambulates without difficulty. HPI 67-year-old male with pmhx of CAD status post CABG ?3, COPD, pacemaker placement, perforated diverticulitis status post colostomy, and recurrent chest pain with multiple admissions (recently discharged last week), presenting for evaluation of chest pain. Patient states that the chest pain began one hour prior to arrival and is localized in the mid sternum, nonradiating. Patient does endorse shortness of breath. He has been continuing to smoke daily. Patient also states that he is currently experiencing severe abdominal pain after a fall onto his abdomen prior to arrival. Patient states that the fall occurred after he stood up quickly and his legs gave out under him. He states that his colostomy bag ruptured due to this fall, and his abdomen has been hurting since then. He endorses nausea. 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 HENT: Negative for drooling. Eyes: Negative for visual disturbance. Respiratory: Positive for shortness of breath. Negative for apnea and chest tightness. Cardiovascular: Positive for chest pain. Negative for palpitations and leg swelling. Gastrointestinal: Positive for abdominal pain and nausea. Negative for diarrhea and vomiting. Genitourinary: Negative for dysuria. Skin: Negative for pallor. Neurological: Negative for dizziness, numbness and headaches. Hematological: Negative for adenopathy. Psychiatric/Behavioral: Negative for confusion and suicidal ideas. All other systems reviewed and are negative. Physical Exam BP 176/64 Pulse 83 Temp (Src) 98.2 (Oral) Resp 18 Ht 5' 8 (1.73m) Wt 190 lb (86.2kg) SpO2 98% BMI 28.90 kg/(m2). Physical Exam Constitutional: He appears well-developed and well-nourished. HENT: Head: Normocephalic and atraumatic. Mouth/Throat: Oropharynx is clear and moist. Eyes: Pupils are equal, round, and reactive to light. EOM are normal. Neck: Normal range of motion. No tracheal deviation present. Cardiovascular: Normal rate, regular rhythm, normal heart sounds and intact distal pulses. Pulmonary/Chest: Effort normal and breath sounds normal. No respiratory distress. He has no wheezes. He has no rales. He exhibits no tenderness. Abdominal: Soft. Bowel sounds are normal. He exhibits no distension. There is tenderness. There is no rebound. Musculoskeletal: Normal range of motion. He exhibits no edema or deformity. Neurological: He is alert. He has normal reflexes. No cranial nerve deficit. Skin: Skin is warm and dry. Psychiatric: He has a normal mood and affect. His behavior is normal. Judgment normal. Nursing note and vitals reviewed. Diagnostic Testing ED Labs Ordered and Reviewed - No data to display Procedures ED Course / Clinical Impression Clinical Impressions as of Apr 19 1252 Chest pain, unspecified type Drug-seeking behavior MDM / Disposition / Plan MDM 67-year-old male with pmhx of CAD status post CABG ?3, COPD, pacemaker placement, perforated diverticulitis status post colostomy, and recurrent chest pain with multiple admissions (recently discharged last week), presenting for evaluation of chest pain. Detailed hx as above. I witnessed the patient walk into the ED without difficulty or signs of distress. Upon my evaluation, patient repeatedly asking for pain medication due to intolerable pain. I advised the patient that he will undergo diagnostic studies, and if there are findings warranting narcotic medication, he will be administered treatment at that time. His PDMP reviewed, risk score of 580. His vitals in the ED are stable. His heart sounds are RRR without MRG. His lungs are CTA BL. Abdomen is soft, nondistended, diffusely tender to palpation (pt appears reactive to pain prior to my hand even touching his abdomen) without peritoneal signs. Pt's colostomy bag is noted to be in the appropriate place with a small perforation over the superior aspect and fecal matter scattered over his anterior abdomen. We will obtain CBC, BMP, troponin, CXR, and CT abd/pelvis. Patient's EKG is without ischemic changes and appears unchanged from his prior. On repeat evaluation, patient appeared to have eloped from the ED prior to having any diagnostic studies completed. I am concerned for repeat ED visits 2/2 to drug seeking behavior. The patient was ELOPED Condition at time of disposition: stable SIGNATURE: MD Sushila Chaparro (Juan) MD Selina Resident 04/19/18 1256 This is an attending note. I did personally examine this patient. I agree with the resident's examination, assessment, plan and written documentation. This patient eloped from the emergency department prior to my being able to evaluate the patient. Maranda Burton MD 04/20/188 ED NOTE Observed: 04/19/2018 Status: COMPLETED Source: [place] 9:37 AM [facility] REPOSITORY HNO ID: [id number] Author: Lynn KingRn) MITCHELL Galvan Service: (none) Author Type: Registered Nurse Type: ED Notes Filed: 04/19/2018 9:37 AM Note Text: Bed: 26-ED Expected date: Expected time: Means of arrival: Comments: TRIAGE NURSING PROG Observed: 04/14/2018 Status: COMPLETED Source: [place] 2:44 PM [facility] REPOSITORY HNO ID: [id number] Author: Hue KingRn) MITCHELL Arcos Service: (none) Author Type: Registered Nurse Type: Nursing Progress Note Filed: 04/14/2018 2:56 PM Note Text: Nursing Progress Note Patient Name: Maxx Knott Patient Location: [place] [address]* Daily Note: Pt requesting pain meds prior [...] MITCHELL Noriega Observed: 04/14/2018 Status: COMPLETED Source: [place] 12:16 PM [facility] REPOSITORY HNO ID: [id number] Author: Abhay Yoder Service: Hospital Medicine Author [...] 3.1 cm, objective sleep apnea. Presented to [facility] for chest pain. It was [...] Yes FOLLOW-UP APPOINTMENTS ALREADY SCHEDULED WITH A [facility] PROVIDER: No future appointments. ALLERGIES Allergen Reactions - Altaseptic Unknown - Brilinta [Ticagrelo* Unknown - Crestor [Rosuvastat* Myalgia - Hctz [Amiloride-Hyd* Swelling - Moxifloxacin Swelling - Other Lake-3s Unknown brelinta - Ramipril Swelling Other reaction(s): [...] with sciatica presence unspecified fluticasone (FLONASE) 1 Vulcan Use 1 Vulcan in the nose once daily as needed. [...] (U/L) Date Value 04/13/2018 28 URINALYSIS Specific [place], Ur Date Value Ref Range Status 03/23/2018 [...] SIGNATURE: Abhay Yoder MD PAGER/CONTACT #: Luciano celina DATE: April 14, 2018 TIME: 12:42 PM [...] outlined. CONSULT Observed: 04/14/2018 Status: COMPLETED Source: [place] 8:17 AM [facility] OTHER [facility] REPOSITORY O ID: [id number] Author: Ratna Bhatt Service: Cardiovascular Medicine Author Type: Physician Type: Consults Filed: 04/14/2018 8:36 AM Note Text: Card Consult Dictated Job [id number] 1. Coronary artery disease with a history of bypass grafting and then as well as possibly a stent to the left anterior descending about a year ago at [facility]. His management is really difficult because he [...] disease Thank you Ratna Bhatt MD Pager [phone] MDRD GFR Collected: 04/14/2018 Status: F Source: [facility] 4:00 AM [employer] REPOSITORY TYPE CODE TESTS RESULT OUT OF RANGE REFERENCE UNITS LAB GFRFN(LOINC >60mL/min/1.73m ) 2 eGFR >60 Result Comment: If the patient is , multiply the result by 1.210. Performed By: #### GFR #### [place] [address] HEMOGRAM Collected: 04/14/2018 Status: F Source: [facility] 4:00 AM HEALTH SYSTEM REPOSITORY TYPE CODE [...] MPV 10.6 Performed By: #### CBC1 #### [place] [address] BASIC PANEL Collected: 04/14/2018 Status: F Source: [facility] 4:00 AM HEALTH SYSTEM REPOSITORY TYPE CODE [...] Gap 9 Performed By: #### P8 #### [place] [address] HISTORY PHYSICAL Observed: 04/14/2018 Status: COMPLETED Source: [place] 1:21 AM [facility]IN[facility] OTHER [facility]AMPUS REPOSITORY HNO ID: [id number] Author: Karl Melendez Service: Hospital Medicine Author Type: Physician Type: HANDP Filed: 04/14/2018 2:18 AM Note Text: DEPARTMENT OF HOSPITAL MEDICINE HISTORY AND PHYSICAL EXAM SERVICE DATE: 04/14/2018 SERVICE TIME: 1:21 AM Primary Care Physician: No primary care provider on file. NIGHT AND WEEKEND COVERAGE: After 7pm, please call cross cover pager #[phone] Subjective CHIEF COMPLAINT: Chest pain. 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 - Peritonitis ([facility]) PAST SURGICAL HISTORY Procedure Laterality [...] [Amiloride-Hyd* Swelling - Moxifloxacin Swelling - Other Lake-3s Unknown brelinta - Ramipril Swelling Other reaction(s): [...] POA: Yes Assessment AND Plan: stable -resume Lasix, BB CAD (coronary artery disease) POA: Yes Assessment [...] ED NOTE Observed: 04/14/2018 Status: COMPLETED Source: [place] 12:26 AM [facility] REPOSITORY HNO ID: [id number] Author: Vanesa KingRn) MITCHELL Dawkins Service: Emergency Medicine Author Type: Registered Nurse Type: ED Notes Filed: 04/14/2018 12:26 AM Note Text: Attempted to call report. RN not available @ this time. CONSULT Observed: 04/14/2018 Status: COMPLETED Source: [place] 12:00 AM [facility] REPOSITORY HNO ID: [id number] Author: Ratna Bhatt Service: Cardiovascular Medicine Author Type: Physician Type: Consults Filed: 04/14/2018 10:24 AM Note Text: [facility] - Consultation PATIENT NAME: MAXX KNOTT CSN: [id number] DATE OF : 1950 SEX/AGE: M/67 PATIENT TYPE: V HOSP SV: [facility] LOCATION: [id number] DATE OF SERVICE: 04/14/2018 CHIEF COMPLAINT: Chest pain. HISTORY OF PRESENT ILLNESS: This is a 67-year-old gentleman, who is chronically ill. He has been in the hospital numerous times and has known coronary artery disease with prior bypass grafting and I think most of this was done at [facility]. It sounds like about a year ago [...] testing. He has also gone to the [place]. He has had constant chest pain since [...] EXAM: Regular rhythm. Really distant heart sounds. [place] is nonpalpable. There is no RV lift. [...] the LAD about a year ago at [facility] who is here in the hospital with recurrent chest pain that is constant with no enzyme leak or EKG changes similar to a month ago. In addition, he had a recent PET scan, which is a very very sensitive test, which was normal. I really do not think a cardiac catheterization is indicated and had suggested previously that perhaps his usual communication specialist, Dr. Anne, might consider as an outpatient [...] challenging gentleman. Ratna Bhatt MD Cardiology DAC:modl /[id number] cc:MD René Ortez MD LACTIC ACID Collected: 04/13/2018 Status: F Source: [facility] 11:03 PM HEALTH SYSTEM REPOSITORY TYPE CODE TESTS RESULT OUT OF REFERENCE UNITS RANGE LAB EDLAC(LOINC 0.5-2.2 mEq/L ) Lactic Acid 1.7 Performed By: #### EDLAG #### [place] [address] [facility] TROPONIN I Collected: 04/13/2018 Status: F Source: [facility] 10:48 PM HEALTH SYSTEM REPOSITORY TYPE CODE TESTS RESULT OUT OF REFERENCE UNITS RANGE LAB ERTRP(LOINC 0.015-0.045 ng/ml ) [facility] Troponin I 0.030 Performed By: #### ERTRP #### [facility] [address] [place], [place] [address] CHEST 2 VIEWS Observed: 04/13/2018 Status: F Source: [facility] 9:21 PM HEALTH SYSTEM REPOSITORY Performed at [facility] APPROVED BY: PERRI GARZA [...] PROV NOTE Observed: 04/13/2018 Status: COMPLETED Source: [place] 9:04 PM [facility] OTHER [facility] REPOSITORY HNO ID: [id number] Author: Naomie Martines DO Service: Emergency Medicine Author Type: Physician Type: ED Provider Notes Filed: 05/11/2018 10:11 PM Note Text: ED Provider Note Patient Name: Maxx Knott SERVICE DATE: 04/13/18 History Patient presents with: Chest Pain: Patient reports midsternal chest pain that started 1 hour [employer]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 Wirt 0.89 (*) 0.30 - 0.82 thou/cmm All other components within normal limits LIPASE BLOOD (AK,AV,EU,FV,HL,DEMARCO,MM,SP) - Abnormal; Notable for the following: Lipase 51 (*) 73 - 393 U/L All other components within normal limits [facility] TROPONIN I (AK ED) MAGNESIUM BLOOD (AK,AV,EU,FV,HL,DEMARCO,MM,SP) MDRD GFR URINALYSIS WITH MICROSCOPIC (AK,AV,EU,FV,HL,DEMARCO,MM,SP) Procedures ED Course / Clinical Impression ED Course as of May 11 2210 Naomie Martines's Documentation Sat May 11, [id number] TEACHING ATTESTATION: I personally saw and examined the patient. I reviewed the resident?s note. I agree with the resident?s assessment and plan unless otherwise noted. This is a 67-year-old male presents to the emergency departmentwith chest pain and shortness of breath. Patient was seen with Dr. Sheets, resident physician, please see his note for full history and physical exam. I agree with the above without significant change. Patient will be admitted for further cardiac workup. Heart is regular rhythm, lungs are clear auscultation bilaterally. Others' Documentation Sat Apr 13, [id number] ECU Troponin I: 0.024 [LG] 2105 Potassium: (!) 3.3 [LG] ED Course User Index [LG] Beni (Res) DO Sudeep Clinical Impressions as of May 11 2210 Chest pain, unspecified type Stoma dermatitis Hypokalemia MDM / Disposition / Plan 67-year-old male presents for chest pain, shortness breath, nausea in setting of multiple cardiac risk factors with known CAD status post CABG. Chest pain is substernal and like his most recent heart attack in 2006 where he received a CABG. He had [...] disposition: improved SIGNATURE: DO Beni Gordon (Res) DO Sudeep Resident 04/13/18 2307 Naomie Martines DO 04/13/18 2325 Naomie Martines DO 05/11/18 2211 ED NOTE Observed: 04/13/2018 Status: COMPLETED Source: [place] 8:07 PM [facility] OTHER [facility] REPOSITORY O ID: [id number] Author: Nai (Mitchell) MITCHELL Pierre Service: Emergency Medicine Author Type: Registered Nurse Type: ED Notes Filed: 04/13/2018 8:07 PM Note Text: X-ray notified of patient HEMOGRAM/DIFF Collected: 04/13/2018 Status: F Source: [facility] 8:02 PM HEALTH SYSTEM REPOSITORY TYPE CODE [...] LAB MONON(LOIN 0.30-0.82 thou/cmm C) Abs. High Wirt 0.89 LAB EOSN(LOINC 0.04-0.54 thou/cmm ) Abs. Eosin 0.24 LAB BASON(LOIN 0.01-0.08 thou/cmm C) Abs. Baso 0.05 Performed By: #### CBCD1 #### [place] [address] [facility] TROPONIN I Collected: 04/13/2018 Status: F Source: [facility] 8:02 HEALTH SYSTEM REPOSITORY TYPE CODE TESTS RESULT OUT OF REFERENCE UNITS RANGE LAB ERTRP(LOINC 0.015-0.045 ng/ml ) ECU Troponin I 0.024 Performed By: #### ERTRP #### [place] [address] COMPREHENSIVE PANEL Collected: 04/13/2018 Status: F Source: [facility] 8:02 HEALTH SYSTEM REPOSITORY TYPE CODE TESTS RESULT [...] Gap 11 Performed By: #### P14 #### [place] [address] MAGNESIUM BLOOD Collected: 04/13/2018 Status: F Source: [facility] 8:02 HEALTH SYSTEM REPOSITORY TYPE CODE TESTS RESULT OUT OF REFERENCE UNITS RANGE LAB MAG(LOINC) 1.6-2.6 mg/dL Magnesium Blood 1.9 Performed By: #### MAG #### [facility] [address] [place], [place] [address] LIPASE BLOOD Collected: 04/13/2018 Status: F Source: [facility] 8:02 PM HEALTH SYSTEM REPOSITORY TYPE CODE TESTS RESULT OUT OF REFERENCE UNITS RANGE LAB LIP(LOINC) 73-393 U/L Low Lipase Blood 51 Performed By: #### LIP #### [facility] [address] [place], [place] [address] ED TRIAGE NOTE Observed: 04/13/2018 Status: COMPLETED Source: [place] 7:47 PM [facility] REPOSITORY HNO ID: [id number] Author: ALEM Brooke (Pa) Service: Emergency Medicine Author Type: Physician Title Insurance Examiner Type: ED Triage Notes Filed: 04/13/2018 7:51 PM Note Text: ED INTAKE NOTE Patient Name: Maxx Knott Service Date: 04/13/18 BRIEF HPI: Pt presents to ED with c/o chest pain and abd pain. 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 He admits to SOB and n/v. He has colostomy that was placed to [facility] 1.5 years ago and he is having pain in that area. He states his intestines are coming into the bag which is not normal for him. BRIEF EXAM: Awake and Alert Tachycardic Appears to have increased WOB There is intestine protruding through patient's colostomy bag INTAKE WORKUP: Bloodwork: CBC CMP Cardiac Enzymes Lipase EKG Urinalysis Imaging: XR: chest SIGNATURE: ALEM Brooke-Crystal PROGRESS Observed: 04/09/2018 Status: COMPLETED Source: [place] 10:21 AM [facility] REPOSITORY HNO ID: [id number] Author: Britt KingRn) MITCHELL Prado Service: (none) Author Type: Registered Nurse Type: Progress Notes Filed: 04/09/2018 10:25 AM Note Text: TRANSITION CARE MANAGEMENT (TCM) INITIAL CONTACT TRANSITION CARE MANAGEMENT: Date of Outreach: 04/08/2018 Date of Discharge 04/07/2018 Some recent data might be hidden SUMMARY: -Pt discharged from [facility] on 04/07. -Follow up appointment on : unable to reach the patient to schedule a f/u appointment -Medication review done : No unable to reach the patient -Admitted for: chest pain Second outreach attempt . Patient called for care coordination after his hospital discharge. The patient was unavailable and his voice mail box is full Britt Prado RN.MAIA [place] [facility] [[id number] PROGRESS Observed: 04/08/2018 Status: COMPLETED Source: [place] 1:21 PM [facility] REPOSITORY HNO ID: [id number] Author: Britt (Rn) MITCHELL Prado Service: (none) Author Type: Registered Nurse Type: Progress Notes Filed: 04/08/2018 1:23 PM Note Text: First outreach attempt . Patient called for care coordination after his hospital discharge. The patient was unavailable and his voice mail box is full Will attempt to reach the patient again Britt Prado RN.MAIA [place] [facility] [[id number] CNPTOUTREA Observed: 04/08/2018 Status: COMPLETED Source: [place] 12:00 AM [facility] Patient Outreach (INTMMN) MAXX KNOTT ([id number]) 1950 M Date Time Provider Department 04/08/18 BRITT PRADO (MITCHELL) INTMMN During your visit today, we recorded the following information about you: Britt Prado RN, RN 04/08/2018 1:23 PM Signed First outreach attempt . Patient called for care coordination after his hospital discharge. The patient was unavailable and his voice mail box is full Will attempt to reach the patient again Britt Prado RN.MAIA [place] [facility] [[id number] Britt Prado RN, RN 04/09/2018 10:25 AM Signed TRANSITION CARE MANAGEMENT (TCM) INITIAL CONTACT TRANSITION CARE MANAGEMENT: Date of Outreach: 04/08/2018 Date of Discharge 04/07/2018 Some recent data might be hidden SUMMARY: -Pt discharged from [place] on 04/07. -Follow up appointment on : unable to reach the patient to schedule a f/u appointment -Medication review done : No unable to reach the patient -Admitted for: chest pain Second outreach attempt . Patient called for care coordination after his hospital discharge. The patient was unavailable and his voice mail box is full Britt Prado RN.JULION [place] [facility] [[id number] Allergies As of Date: 04/08/2018 Noted Allergy [...] Assessed Reason for Visit: Transition Of Care [4404] Cmt: Hospital D/C 04/07 for chest pain [...] bed* FLUTICASONE 50 MCG/ACTUATION * Use 1 Vulcan in the nose once * FUROSEMIDE 20 [...] 04/09/18 CNDS Observed: 04/07/2018 Status: COMPLETED Source: [place] 11:18 AM [facility] REPOSITORY O ID: [id number] Author: Anjana Issa APRN.MUNICIPAL MAINTENANCE WORKER Service: Hospital Medicine Author Type: Nurse Practitioner Type: Discharge Summaries Filed: 04/07/2018 11:35 AM Note Text: Attestation signed by Taylor Weber at 04/08/2018 8:31 AM Attending Note I have reviewed the PA/MANAGER MEAT note. Additions or changes: None Signature: Taylor Weber MD Date: 04/08/2018 Time: 8:31 AM DISCHARGE SUMMARY PATIENT NAME: Maxx Knott ADMISSION DATE: 04/06/2018 DISCHARGE DATE: 04/07/2018 Attending Physician: Taylor Weber Code Status: Prior Highest Readmission Risk Score: [...] you continue to follow up with your DC GI doctor to discuss your stoma. Please call Sunday for this appointment. We also recommend you follow-up with your primary care physician within 7 days to discuss your recent hospitalization and assure your symptoms continue to improve. Please call Sunday for this appointment Transitions of Care Critical Issues: follow-up with DC physician and communication specialist LABS AND PROCEDURES PENDING AT DISCHARGE: Test [...] call his primary care provider at the DC for a follow-up appointment. In addition, patient was advised to call his communication specialist and GI physician for follow-up appointments in [...] During Hospitalization: Treatment Team: Attending Provider: Taylor Weber None Patient Condition @ Discharge: Stable Discharge [...] [Amiloride-Hyd* Swelling - Moxifloxacin Swelling - Other Lake-3s Unknown brelinta - Ramipril Swelling Other reaction(s): [...] for Wheezing/Shortness of Breath. fluticasone (FLONASE) 1 Vulcan Use 1 Vulcan in the nose once daily as needed. [...] PCP: Bijan Perez MD Follow Up with communication specialist and GI Appointments for Next 45 Days [...] the discharge management of this patient. SIGNATURE: Anjana Issa APRN.DEVONTE PATIENT NAME: Maxx Knott DATE: April 07, 2018 TIME: 11:18 AM PAGER/CONTACT #: CHAVA FERRO Observed: 04/07/2018 Status: COMPLETED Source: [place] 9:55 AM [facility] REPOSITORY HNO ID: [id number] Author: Lamar (Rn) MITCHELL Saeed Service: Nursing [...] pt. PROGRESS Observed: 04/07/2018 Status: COMPLETED Source: [place] 3:15 AM [facility] REPOSITORY HNO ID: [id number] Author: Downtime Note Service: (none) Author Type: (none) Type: Progress Notes Filed: 04/07/2018 3:22 AM Note Text: Epic Scheduled Downtime: 04/07/2018 1:00:00 AM to 04/07/2018 3:07:00 AM TROPONIN I Collected: 04/07/2018 Status: F Source: [facility] 12:55 AM HEALTH SYSTEM REPOSITORY TYPE CODE TESTS RESULT OUT OF REFERENCE UNITS RANGE LAB TROP(LOINC) 0.015-0.045 ng/ml Troponin I < 0.015 Performed By: #### TROP #### [place] [address] HISTORY PHYSICAL Observed: 04/06/2018 Status: COMPLETED Source: [place] 11:37 PM [facility] REPOSITORY HNO ID: [id number] Author: Brenna Elena Service: Hospital Medicine Author Type: Nurse Practitioner Type: HANDP Filed: 04/07/2018 12:50 AM Note Text: DEPARTMENT OF HOSPITAL MEDICINE HISTORY AND PHYSICAL EXAM SERVICE DATE: 04/06/2018 SERVICE TIME: 12:40 AM Primary Care Physician: Bijan Perez MD NIGHT AND WEEKEND COVERAGE: From 7am - 7pm, please call ROU After 7pm, please call cross cover pager #[phone] Subjective CHIEF COMPLAINT: Chest and abd pain [...] (abdominal aortic aneurysm) without rupture ([facility]) 05/13/[address] a/p - CAD (coronary artery disease) 2005 CAD s/p CABG x3 (MABA-KGD-spvcfq, ZFC-XEV-cpmxjb, SWB-HP3-eoxsedkc) (2006 at [place]) - COPD (chronic obstructive pulmonary disease) ([facility]) - Current every day smoker PT SMOKES A PIPE - Diverticulitis Perforated Diverticulitis - Diverticulitis of sigmoid colon 05/15/2017 Added automatically from request for surgery [id number] - Hx of CABG - Pacemaker 02/16/2017 s/p PPM () 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 Monge about food, stated Okay to eat. Tech obtaining boxed lunch/beverage for pt. [facility] TROPONIN I Collected: 04/06/2018 Status: F Source: [facility] 9:00 PM HEALTH SYSTEM REPOSITORY TYPE CODE TESTS RESULT OUT OF REFERENCE UNITS RANGE LAB ERTRP(LOINC 0.015-0.045 ng/ml ) [facility] Troponin I < 0.015 Performed By: #### ERTRP #### [place] [address] [address] ABDOMEN AND PELVIS Observed: 04/06/2018 Status: F Source: [facility] WITH CONTRAST 8:42 PM HEALTH SYSTEM REPOSITORY Performed at [facility] APPROVED BY: Dileep Oneal [...] ED NOTE Observed: 04/06/2018 Status: COMPLETED Source: [place] 7:51 PM [facility] OTHER CAMPUS REPOSITORY HNO ID: [id number] Author: Batsheva Toth) MITCHELL Torres Service: Emergency Medicine Author Type: Registered Nurse Type: ED Notes Filed: 04/06/2018 7:51 PM Note Text: CT notified pt ready for imaging ED NOTE Observed: 04/06/2018 Status: COMPLETED Source: [place] 7:40 PM [facility] [place] REPOSITORY HNO ID: [id number] Author: Batsheva Toth) MITCHELL Torres Service: Emergency Medicine Author Type: Registered Nurse Type: ED Notes Filed: 04/06/2018 7:41 PM Note Text: Pt attached to alarm security or surveillance monitor and cont pulse ox CHEST 1 VIEW Observed: 04/06/2018 Status: F Source: [facility] 7:16 PM HEALTH SYSTEM REPOSITORY Performed at [facility] APPROVED BY: Dileep Oneal [...] PROV NOTE Observed: 04/06/2018 Status: COMPLETED Source: [place] 6:31 PM [facility] [place] REPOSITORY HNO ID: [id number] Author: Lloyd Ash Service: Emergency Medicine Author [...] (abdominal aortic aneurysm) without rupture ([facility]) 05/13/[address] a/p - CAD (coronary artery disease) 2005 CAD s/p CABG x3 (BXUU-BQN-dqhnup, MGP-YGR-rlqgox, RKR-DD7-xrxwjuyb) (2006 at [place]) - COPD (chronic obstructive pulmonary disease) ([facility]) - Current every day smoker PT SMOKES A PIPE - Diverticulitis Perforated Diverticulitis - Diverticulitis of sigmoid colon 05/15/2017 Added automatically from request for surgery [id number] - Hx of CABG - Pacemaker 02/16/2017 s/p PPM () 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 SIGNATURE: Lloyd ChildsrioDO Desai Mihir 04/08/18 0055 ED NOTE Observed: 04/06/2018 Status: COMPLETED Source: [place] 6:13 PM CLINIC OTHER CAMPUS REPOSITORY HNO ID: [id number] Author: Clover (Rn) MITCHELL Cunha Service: Emergency Medicine Author Type: Registered Nurse Type: ED Notes Filed: 04/06/2018 6:13 PM Note Text: Waiting to see doctor. HEMOGRAM/DIFF Collected: 04/06/2018 Status: F Source: [facility] 5:42 PM HEALTH SYSTEM REPOSITORY TYPE CODE [...] 2.02 LAB MONON(LOIN 0.30-0.82 thou/cmm C) Abs. Wirt 0.62 LAB EOSN(LOINC 0.04-0.54 thou/cmm ) Abs. Eosin 0.24 LAB BASON(LOIN 0.01-0.08 thou/cmm C) Abs. Baso 0.03 Performed By: #### CBCD1 #### [place] [address] [facility] TROPONIN I Collected: 04/06/2018 Status: F Source: [address] SYSTEM REPOSITORY TYPE CODE TESTS RESULT OUT OF REFERENCE UNITS RANGE LAB ERTRP(LOINC 0.015-0.045 ng/ml ) [facility] Troponin I < 0.015 Performed By: #### ERTRP #### [place] [address] COMPREHENSIVE PANEL Collected: 04/06/2018 Status: F Source: [address] SYSTEM REPOSITORY TYPE CODE TESTS RESULT [...] Gap 13 Performed By: #### P14 #### [place] [address] MDRD GFR Collected: 04/06/2018 Status: F Source: [facility] 5:42 PM HEALTH SYSTEM REPOSITORY TYPE CODE TESTS RESULT OUT OF RANGE REFERENCE UNITS LAB GFRFN(LOINC >60mL/min/1.73m ) 2 eGFR >60 Result Comment: If the patient is , multiply the result by 1.210. Performed By: #### GFR #### [place] [address] ED NOTE Observed: 04/06/2018 Status: COMPLETED Source: [place] 5:41 PM [facility] [place] REPOSITORY HNO ID: [id number] Author: Clover (Rn) MITCHELL Cunha Service: Emergency Medicine Author Type: Registered Nurse Type: ED Notes Filed: 04/06/2018 5:42 PM Note Text: Pt on monitor EKG (AK,AV,EU,FV,HL,DEMARCO,MM,SP) Observed: Status: F Source: [place] 04/06/2018 5:05 PM [facility] [place] REPOSITORY NAME : MAXX KNOTT PID : [id number] : 1950 Gender : Male Race : ORD : [id number] Procedure Date : Apr 06 2018 17:05 [...] ms QTC Calculation(Bezet) : 460 ms P Powderhorn : 51 degrees R Powderhorn : 55 degrees T Powderhorn : 32 degrees Test Reason : Chest Pain Location : 4 : AKCHERYLE LARSEN Overread By : MD Resendiz Thomas Editted [...] Yes. COMPARISON: CT dated 11/06/2017 ACCESSION NUMBER(S): [id number] ORDERING CLINICIAN: RADHIKA ARRIAGA TECHNIQUE: CT of [...] COAGULATION SCREEN Collected: 04/05/2018 Status: F Source: [place] 7:00 PM HOSPITALS REPOSITORY TYPE CODE TESTS [...] HEPARIN ASSAY. Performed By: #### COAGS #### [facility] [address] [place] [address] BASIC METABOLIC PANEL Collected: 04/05/2018 Status: F Source: [place] 7:00 PM [facility] REPOSITORY TYPE CODE TESTS RESULT OUT [...] CALCIUM 9.8 Performed By: #### BMP #### [facility] [address] [place] [address] CBC AND DIFFERENTIAL Collected: 04/05/2018 Status: F Source: [place] 6:58 PM [facility] REPOSITORY TYPE CODE TESTS RESULT OUT [...] BASOPHIL 0.04 Performed By: #### CBCDF #### [facility] [address] [place] [address] LACTATE Collected: 04/05/2018 Status: F Source: [place] 6:58 PM HOSPITALS REPOSITORY TYPE CODE TESTS RESULT OUT OF REFERENCE UNITS RANGE LAB LACT(LOINC) 0.4 - 2.0 mmol/L LACTATE 1.4 Result Comment: Venipuncture immediately after or during the administration of Metamizole may lead to falsely low results. Testing should be performed immediately prior to Metamizole dosing. Performed By: #### LACT #### [facility] [address] [place] [address] TYPE + SCREEN Collected: 04/05/2018 Status: F Source: [place] 6:58 PM HOSPITALS REPOSITORY TYPE CODE TESTS RESULT OUT OF REFERENCE UNITS RANGE LAB ABORH(LOINC ) ABO TYPE O LAB RH(LOINC) RH TYPE POS LAB ABSC(LOINC) ANTIBODY NEG SCREEN Performed By: #### T+S #### [facility] [address] [place] [address] COAGULATION SCREEN Collected: 04/05/2018 Status: CANCELLED Source: [place] 6:58 PM HOSPITALS REPOSITORY Order Comment: TEST COAGULATION SCREEN WAS [...] HEPARIN ASSAY. Performed By: #### COAGS #### [facility] [address] [place] [address] RISK SCREEN - ADULT Observed: 04/05/2018 Status: UNK Source: [place] [facility] 6:07 PM [facility]OSPITALS REPOSITORY Preferred Language: Preferred Language: Preferred Language for Discussing Health Care (patient/designee)Guamanian Advanced Directives: Advance Directive Medicalno Advance Directive [...] Communicatenone Learning Preferencesaudio Cultural Considerationsnone Developmental Considerationsnone Buddhist Considerationsnone Learning Assessment (Other Learner): Learning Assessment [...] an injured patient at a Trauma Center ([facility] / [facility]): no Electronic Signatures: Hue Glass (RN) (Signed 05-Apr-2018 18:08) Authored: Preferred Language, Advanced Directives, Family Violence Adult, Suicide / Depression, Learning Assessment (Patient), Learning Assessment (Other Learner), Fall Risk Adult, Pressure Injury, Respiratory / Cough /TB, Smoking/Social History (Required age 13 or older), CAGE Last Updated: 05-Apr-2018 18:08 by Hue Glass (RN) References: 1. Data Referenced From Triage - ED 04/05/2018 4:24 PM LIPASE Collected: 04/05/2018 Status: F Source: [place] 5:52 [facility] REPOSITORY TYPE CODE TESTS RESULT OUT OF REFERENCE UNITS RANGE LAB LIPAS(LOINC 9 - 82 U/L ) Low LIPASE 7 Result Comment: Venipuncture immediately after or during the administration of Metamizole may lead to falsely low results. Testing should be performed immediately prior to Metamizole dosing. Y-sprjok-c-benzoquinone imine (metabolite of Acetaminophen) will generate erroneously low results in samples for patients that have taken toxic doses of acetaminophen. Performed By: #### LIPAS #### [facility] [address] [place] [address] COMPREHENSIVE PANEL Collected: 04/05/2018 Status: F Source: [place] 5:52 PM [facility] REPOSITORY TYPE CODE TESTS RESULT OUT [...] for ALT. Performed By: #### CMP #### [facility] [address] [place] [address] TROPONIN I Collected: 04/05/2018 Status: F Source: [place] 5:52 PM HOSPITALS REPOSITORY TYPE CODE TESTS [...] is performed using different testing methodology at [facility] than at other [facility]. Direct result comparisons should only be made within the same method. . Patients receiving more than 5 mg/day of biotin may have interference in test results. A sample should be taken no sooner than eight hours after previous dose. Contact [phone] for additional information. Performed By: #### TROP2 #### [facility] [address] [place] [address] TH CHEST 2 VIEW PA Observed: 04/05/2018 Status: F Source: [facility] 5:16 PM HOSPITALS REPOSITORY Patient Name: MAXX KNOTT STUDY: TH CHEST 2 VIEW PA AND LAT; 04/05/2018 5:16 pm INDICATION: Signs/Symptoms: sob. COMPARISON: 02/16/2018 ACCESSION NUMBER(S): [id number] ORDERING CLINICIAN: RADHIKA ARRIAGA FINDINGS: Patient status [...] as stated. This study was interpreted at [facility], [employer], [place]. Electronically signed by: MIGEL TATUM MD PROVIDER NOTE - ED Observed: 04/05/2018 Status: COMPLETED Source: [place] [id number] 4:34 PM HOSPITALS REPOSITORY Provider Note - [...] 01:02) Authored: Provider Note - ED v2 Shell Montero) (Signed 08-Apr-2018 09:20) Authored: Provider Note - ED v2 Co-Signer: Provider Note - ED v2 Last Updated: 08-Apr-2018 09:20 by Shell Montero) References: 1. Data Referenced From Triage - ED 04/05/2018 4:24 PM 12 LEAD ELECTROCARDIOGRAM Observed: 04/02/2018 Status: F Source: [place] 3:23 PM [facility] REPOSITORY [facility] Cardiovascular Services [address] [place] [address] 12 Lead EKG 03/31/182032 MR#: [id number] Acct: [id number] Name: MAXX KNOTT Rep #: [id number] : 1950 67 From: Kassandra Lundberg MD [...] Abnormal ECG Confirmed by LAUREEN METCALF, KASSANDRA ([id number]), news assignment editor LAMAR AHN ([id number]) on 04/02/2018 3:22:42 PM Referred By: DANIEL Confirmed By:KASSANDRA LUNDBERG MD 04/02/18 1522 Date Kassandra Lundberg MD CC: [facility]; Verenice Shell MD Signed EMERGENCY DEPARTMENT Observed: 04/01/2018 Status: F Source: [place] SUMMARY 12:46 AM [facility] REPOSITORY [facility] Medical Records Department [address] [place] [address] Emergency Department Summary 03/31/18 2252 MR#: [id number] Acct: [id number] Name: MAXX KNOTT Rep #: [id number] : 1950 67 From: Verenice Shell MD PCP: [place], [place] Status: DEP ER - ER Visit [...] chest pain This note was generated with [employer] dictation software. It may contain incorrect words, spelling, and punctuation that were not noted in review of the chart prior to signing ED Disposition - Plan for ED Patient: Disposition: Home or Assisted Living Chief Complaint: Abd Pain Instructions: Colostomy: Answers to Common Questions, ED Chest Pain Atypical Unkn Cause Referrals: [facility] [Primary Care Provider] - Additional Instructions: Follow-up with your surgeon as scheduled. What to do if you have Problems For any increased pain, shortness of breath, bleeding, nausea or vomiting, chest pain, or any unexpected problems, contact your Primary Care Provider. Call [facility] ([phone]) or report to the closest Emergency Room. Call 911 if necessary. 04/01/18 0046 <Electronically signed by Verenice Shell MD> Date Verenice Shell MD Cosigner Signature (If Indicated): Date CC: [facility] Hospital DISCHARGE INSTRUCTION Observed: 03/31/2018 Status: F Source: [place] 10:54 PM [facility] REPOSITORY [facility] Medical Records Department [address] [place] [address] Discharge Instruction 03/31/18 2252 MR#: [id number] Acct: [id number] Name: MAXX KNOTT Shekhar Rep #: [id number] : 1950 67 From: Verenice Shell MD PCP: [place], [place] Status: REG ER ED Disposition - Plan for ED Patient: Disposition: Home or Assisted Living Chief Complaint: Abd Pain Instructions: Colostomy: Answers to Common Questions, ED Chest Pain Atypical Unkn Cause Referrals: [facility] [Primary Care Provider] - Additional Instructions: Follow-up with your surgeon as scheduled. What to do if you have Problems For any increased pain, shortness of breath, bleeding, nausea or vomiting, chest pain, or any unexpected problems, contact your Primary Care Provider. Call [facility] ([phone]) or report to the closest Emergency Room. Call 911 if necessary. 03/31/18 2254 <Electronically signed by Verenice Shell MD> Date Verenice Shell MD Cosigner Signature (If Indicated): Date CC: [facility] CHEST 1 VIEW Observed: 03/31/2018 Status: F Source: [place] (PORTABLE) 9:37 PM [facility] REPOSITORY [facility] Imaging Services [address] [place] [address] Chest 1 View (Portable) MR#: [id number] Acct: [id number] Name: MAXX KNOTT Rep #: [id number] : 1950 67 From: Verenice Dugan MD PCP: [place], [place] Status: DEP ER Study: Chest 1 View (Portable) Date of Exam: 03/31/18 Exam# [id number] Ordering Dr: Verenice Shell MD STUDY: X-RAY [...] Dugan MD at 23:44 EST Tel Direct: [phone], Service support , CC: [facility]; Verenice Shell MD Geriatric Physical Therapist: Signed CBC W/DIFF, AUTOMATED Collected: 03/31/2018 Status: F Source: [place] 8:50 PM [facility] REPOSITORY TYPE CODE TESTS RESULT OUT [...] Lymph 1.75 Performed By: #### L100.0100 #### [facility] [address] [place], [place], [address] BASIC METABOLIC Collected: 03/31/2018 Status: F Source: [place] PROFILE (BMP) 8:50 PM [facility] REPOSITORY TYPE CODE TESTS RESULT OUT [...] GAP Performed By: #### L500.2500, L501.4010 #### [facility] [address] [place], [address] TROPONIN-I Collected: 03/31/2018 Status: F Source: [place] 8:50 PM [facility] REPOSITORY TYPE CODE TESTS RESULT OUT OF RANGE REFERENCE UNITS LAB L501.4010 <0.045 ng/mL Normal < 0.015 TROPONIN-I Result Comment: TROPONIN-I EXPECTED VALUES <0.045 Negative 0.045 - 0.590 Consistent with Cardiac Damage > OR = 0.600 Critical Value Not every elevated troponin is indicative of FL. These values should be used with clinical judgement in examining the patient's clinical picture for diagnosis. To establish a diagnosis of FL versus myocardial injury, there must be a demonstrated rise and/or fall in the troponin values, in addition to ischemic symptoms, EKG changes, new regional wall motion abnormality, and/or angiographical evidence. PLEASE NOTE: REFERENCE RANGES EDITED 17 Performed By: #### L500.2500, L501.4010 #### [facility] [place], [address] [facility] TROPONIN I Collected: 03/23/2018 Status: F Source: [facility] 11:25 PM HEALTH SYSTEM REPOSITORY TYPE CODE TESTS RESULT OUT OF REFERENCE UNITS RANGE LAB ERTRP(LOINC 0.015-0.045 ng/ml ) [facility] Troponin I < 0.015 Performed By: #### ERTRP #### [facility] [address] [place] [address] ED NOTE Observed: 03/23/2018 Status: COMPLETED Source: [place] 11:13 PM CLINIC OTHER CAMPUS REPOSITORY HNO ID: [id number] Author: Kiara Jose RN Service: Emergency Medicine Author Type: Registered Nurse Type: ED Notes Filed: 03/23/2018 11:14 PM Note Text: Report given to Annia GONZALEZ. ED PROV NOTE Observed: 03/23/2018 Status: COMPLETED Source: [place] 10:59 PM CLINIC OTHER CAMPUS REPOSITORY HNO ID: [id number] Author: Mine Proctor MD Service: Emergency Medicine Author Type: Physician Type: ED Provider Notes Filed: 03/28/2018 8:40 AM Note Text: Patient was signed out to me by Dr. Barry. Work up complete awaiting ROU call back for observation admission. I was informed by [facility] that [facility] did not feel patient was appropriate for them. Spoke with [facility] who did not feel patient met criteria for full admission and thought should go to [facility]. ALEM spoke again with [facility] who still refused. Spoke with Luciano again. [...] ED NOTE Observed: 03/23/2018 Status: COMPLETED Source: [place] 10:51 PM CLINIC OTHER CAMPUS REPOSITORY HNO ID: [id number] Author: Kiara KingRn) MITCHELL Jose Service: Emergency Medicine Author Type: Registered Nurse Type: ED Notes Filed: 03/23/2018 10:51 PM Note Text: Dr Proctor at bedside. ED NOTE Observed: 03/23/2018 Status: COMPLETED Source: [place] 8:37 PM [facility] OTHER CAMPUS REPOSITORY HNO ID: [id number] Author: Kiara KingRnBeth Jose RN Service: Emergency Medicine Author Type: Registered Nurse Type: ED Notes Filed: 03/23/2018 8:37 PM Note Text: Boxed lunch given to pt. [facility] TROPONIN I Collected: 03/23/2018 Status: F Source: [facility] 8:33 PM HEALTH SYSTEM REPOSITORY TYPE CODE TESTS RESULT OUT OF REFERENCE UNITS RANGE LAB ERTRP(LOINC 0.015-0.045 ng/ml ) [facility] Troponin I < 0.015 Performed By: #### ERTRP #### [place] [address] CONSULT Observed: 03/23/2018 Status: COMPLETED Source: [place] 7:18 PM [facility] REPOSITORY HNO ID: [id number] Author: Sada Kincaid Service: General Surgery Author [...] questions or concerns Mon-Fri 6a-5p please page [phone]. After 5pm and on Weekends and Holidays, please page [phone] if in ICU or [phone] if on RNF. SERVICE DATE: 03/23/2018 SERVICE [...] told to follow up with C[facility] at [facility] as scheduled which he has not done. He was deemed not a surgical candidate here due to his extensive cardiac history as below. 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 - Peritonitis ([facility]) PAST SURGICAL HISTORY Procedure Laterality [...] URINALYSIS ROUTINE Collected: 03/23/2018 Status: F Source: [facility] 7:11 PM HEALTH SYSTEM REPOSITORY TYPE CODE [...] NEGATIVE LAB SPG(LOINC) 1.005-1.030 Abnormal Specific 1.035 [place], Ur LAB PHUR(LOINC 5.0-8.0 ) pH,Urine 6.5 [...] Cast 0.8 Performed By: #### URIN2 #### [place] [address] ED NOTE Observed: 03/23/2018 Status: COMPLETED Source: [place] 6:45 PM CLINIC OTHER CAMPUS REPOSITORY HNO ID: [id number] Author: Kiara Toth) MITCHELL Jose Service: Emergency Medicine Author Type: Registered Nurse Type: ED Notes Filed: 03/23/2018 6:45 PM Note Text: Patient returned to the Emergency Department. CTA CHEST (GATED) Observed: 03/23/2018 Status: F Source: [facility] WO/W IV CON 6:39 PM HEALTH SYSTEM REPOSITORY Performed at [facility] APPROVED BY: Lenin Blakely [...] IV CON Observed: 03/23/2018 Status: F Source: [facility] 6:39 PM HEALTH SYSTEM REPOSITORY Performed at [facility] APPROVED BY: Lenin Blakely [...] ED NOTE Observed: 03/23/2018 Status: COMPLETED Source: [place] 6:35 PM [facility] [place] REPOSITORY HNO ID: [id number] Author: Kiara KingRn) MITCHELL Jose Service: Emergency Medicine Author Type: Registered Nurse Type: ED Notes Filed: 03/23/2018 6:35 PM Note Text: Patient transported to Ct and XR with transporter. ED NOTE Observed: 03/23/2018 Status: COMPLETED Source: [place] 6:24 PM [facility] REPOSITORY HNO ID: [id number] Author: Kiara Toth) MITCHELL Jose Service: Emergency Medicine Author Type: Registered Nurse Type: ED Notes Filed: 03/23/2018 6:24 PM Note Text: Surgery resident at bedside. [facility] TROPONIN I Collected: 03/23/2018 Status: F Source: [facility] 5:38 PM HEALTH SYSTEM REPOSITORY TYPE CODE TESTS RESULT OUT OF REFERENCE UNITS RANGE LAB ERTRP(LOINC 0.015-0.045 ng/ml ) [facility] Troponin I < 0.015 Performed By: #### ERTRP #### [facility] [address] [place] [address] COMPREHENSIVE PANEL Collected: 03/23/2018 Status: F Source: [facility] 5:38 PM HEALTH SYSTEM REPOSITORY TYPE CODE [...] Gap 11 Performed By: #### P14 #### [place] [address] MDRD GFR Collected: 03/23/2018 Status: F Source: [facility] 5:38 PM HEALTH SYSTEM REPOSITORY TYPE CODE TESTS RESULT OUT OF RANGE REFERENCE UNITS LAB GFRFN(LOINC >60mL/min/1.73m ) 2 eGFR >60 Result Comment: If the patient is , multiply the result by 1.210. Performed By: #### GFR #### [place] [address] ED NOTE Observed: 03/23/2018 Status: COMPLETED Source: [place] 5:33 PM CLINIC OTHER CAMPUS REPOSITORY HNO ID: [id number] Author: Kiara (Rn) MITCHELL Jose Service: Emergency Medicine Author Type: Registered Nurse Type: ED Notes Filed: 03/23/2018 5:33 PM Note Text: Per shweta in lab. Green top hemolyzed. This RN to redraw. LACTIC ACID Collected: 03/23/2018 Status: F Source: [facility] 4:54 PM HEALTH SYSTEM REPOSITORY TYPE CODE TESTS RESULT OUT OF REFERENCE UNITS RANGE LAB EDLAC(LOINC 0.5-2.2 mEq/L ) Lactic Acid 1.6 Performed By: #### EDLAG #### [address] [place], [place] [address] ED NOTE Observed: 03/23/2018 Status: COMPLETED Source: [place] 4:45 PM CLINIC OTHER CAMPUS REPOSITORY HNO ID: [id number] Author: Kiara (Rn) MITCHELL Jose Service: Emergency Medicine Author Type: Registered Nurse Type: ED Notes Filed: 03/23/2018 4:55 PM Note Text: Report given to Jace GONZALEZ for lunch coverage. ED PROV NOTE Observed: 03/23/2018 Status: COMPLETED Source: [place] 4:33 PM CLINIC OTHER CAMPUS REPOSITORY HNO ID: [id number] Author: Poncho Barry MD Service: Emergency Medicine [...] (abdominal aortic aneurysm) without rupture ([facility]) 05/13/[address] a/p - CAD (coronary artery disease) 2005 CAD s/p CABG x3 (LMST-PCI-otywil, AKX-BIU-xwkvdp, UKH-LJ8-kghlvtnu) (2006 at [place]) - COPD (chronic obstructive pulmonary disease) ([facility]) - Current every day smoker PT SMOKES A PIPE - Diverticulitis Perforated Diverticulitis - Diverticulitis of sigmoid colon 05/15/2017 Added automatically from request for surgery [id number] - Hx of CABG - Pacemaker 02/16/2017 s/p PPM ([facility]) placed [...] [Amiloride-Hyd* Swelling - Moxifloxacin Swelling - Other Lake-3s Unknown brelinta - Ramipril Swelling Other reaction(s): [...] as he is to follow up with [facility] for further management of ostomy. B-troponin drawn and sent here. Given patient's extensive cardiac history, will need cardiac enzymes cycling for ACS rule out. He is given ASA here in the ED. [facility] refused this patient in their unit. When they were paged for admission at 8 pm patient only had one negative troponin however due to delay in their call back 2nd troponin was resulted by then and also negative. [facility] physicians paged as well and spoke with [...] all questions. This note was generated using [employer] voice dictation. All resonable efforts were made to correct dictation errors but they still may occur given the nature of the software. ED Course as of Mar 23 2302 Poncho Mccain (Pa)'s Documentation Sat Mar 23, [id number] CBC: No clinically significant leukocytosis, anemia, or thrombocytopenia 1835 CMP: No clinically significant electrolyte abnormalities, DANIEL, or metabolic alkalosis/acidosis, LFTs WNL 2108 ROU states this patient not candidate for [...] of the patient and have reviewed the PA/MANAGER MEAT note. 67 year old male presents with [...] was supposed to f/u with surgeon at [facility] for colostomy reversal but has not. Pt [...] 002 EKG Observed: 03/23/2018 Status: F Source: [place] 3:51 PM CLINIC OTHER CAMPUS REPOSITORY NAME : MAXX KNOTT PID : [id number] : 1950 Gender : Male Race : [...] IS NO LONGER PRESENT Confirmed by MD Laurent Carol ([id number]) on 03/23/2018 8:43:04 PM Ventricular Rate : 74 BPM Atrial Rate : 74 BPM P-R Interval : 180 ms QRS Duration : 108 ms Q-T Interval : 380 ms QTC Calculation(Bezet) : 421 ms P Powderhorn : 59 degrees R Powderhorn : 47 degrees T Powderhorn : 28 degrees Test Reason : Location : 4 : [place] EL 1 Overread By : MD Laurent Carol Editted By : MD Laurent Carol Referred By : , Acquired by : Verenice Aguilar ED TRIAGE NOTE Observed: 03/23/2018 Status: COMPLETED Source: [place] 3:47 PM [facility] [place] REPOSITORY HNO ID: [id number] Author: Vida Obrien) ALEM Mccoy Service: Emergency Medicine Author Type: Physician Title Insurance Examiner Type: ED Triage Notes Filed: 03/23/2018 3:50 [...] ED NOTE Observed: 03/23/2018 Status: COMPLETED Source: [place] 3:45 PM [facility] REPOSITORY HNO ID: [id number] Author: Maranda Toth) MITCHELL White Service: Emergency Medicine Author Type: [...] normal; HEMOGRAM/DIFF Collected: 03/23/2018 Status: F Source: [facility] 2:44 PM HEALTH SYSTEM REPOSITORY TYPE CODE [...] 1.82 LAB MONON(LOIN 0.30-0.82 thou/cmm C) Abs. Wirt 0.49 LAB EOSN(LOINC 0.04-0.54 thou/cmm ) Abs. Eosin 0.11 LAB BASON(LOIN 0.01-0.08 thou/cmm C) Abs. Baso 0.02 Performed By: #### CBCD1 #### [facility] [address] [place] [address] PROGRESS Observed: 03/12/2018 Status: COMPLETED Source: [place] 1:57 PM [facility] REPOSITORY HNO ID: [id number] Author: Britt (Rn) Donato RN Service: (none) Author Type: Registered Nurse Type: Progress Notes Filed: 03/12/2018 2:01 PM Note Text: TRANSITION CARE MANAGEMENT (TCM) INITIAL CONTACT TRANSITION CARE MANAGEMENT: Date of Outreach: 03/12/2018 Outreach Attempt 1: Contact Not Made Outreach Attempt 2: Contact Not Made Date of Discharge 03/10/2018 Some recent data might be hidden SUMMARY: -Pt discharged from [facility] on 03/10. -Follow up appointment on No [...] his voice mail box is full Britt rPado RN.BSN [place] [facility] [[id number] PROGRESS Observed: 03/12/2018 Status: COMPLETED Source: [place] 12:21 PM [facility] REPOSITORY HNO ID: [id number] Author: Britt KingRn) MITCHELL Prado Service: (none) Author Type: Registered Nurse Type: Progress Notes Filed: 03/12/2018 12:22 PM Note Text: First outreach attempt . Patient called for care coordination after his hospital discharge. The patient was unavailable and his voice ramon box is full Britt Prado RN.Gil [place] [facility] [[id number] PROGRESS Observed: 03/12/2018 Status: COMPLETED Source: [place] 8:23 AM [facility] REPOSITORY HNO ID: [id number] Author: Chel Craig Pharmd Service: (none) Author [...] straight to voicemail. SUMMARY: -Pt discharged from [facility] on 03/10/18. -Follow up appointment on - [...] at 3.2 cm. He was evaluated by communication specialist. He had pharmacologic stress test on past January and July which were negative for ischemia. He was continued on ASA, statin, metoprolol and ranexa. Stock Grader recommended to follow up with his communication specialist as outpatient. He was also noted to have possible gastritis and was started on protonix. He was also noted to have 12 mm RUL nodule which has been present at least 07/2017. 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 - Peritonitis ([facility]) Social History Substance Use Topics [...] [Amiloride-Hyd* Swelling - Moxifloxacin Swelling - Other Lake-3s Unknown brelinta - Ramipril Swelling Other reaction(s): Facial swelling - Simvastatin Myalgia Other reaction(s): Facial swelling - Voltaren [Diclofena* Unknown Preferred pharmacy: [facility] [address] [place], [place] [phone] - [address] [facility] [phone] [facility] [place] [address] [address] [facility] [address] e- [facility] [place] [address] - [address] [place] [phone] [address] [facility] [address] Medication Reconciliation: Legend: Stopped, New, Changed, Added [...] (FLONASE) 50 mcg/actuation nasal spray Use 1 Vulcan in the nose once daily as needed. [...] AM RUTH Observed: 03/12/2018 Status: COMPLETED Source: [place] 12:00 AM [facility] REPOSITORY Patient Outreach (PHRXRF) MAXX KNOTT ([id number]) 1950 M Date Time Provider Department 03/12/18 CHEL CRAIG PHARMD PHRXRRon During your visit today, we [...] straight to voicemail. SUMMARY: -Pt discharged from [facility] on 03/10/18. -Follow up appointment on - [...] at 3.2 cm. He was evaluated by communication specialist. He had pharmacologic stress test on past January and July which were negative for ischemia. He was continued on ASA, statin, metoprolol and ranexa. Stock Grader recommended to follow up with his communication specialist as outpatient. He was also noted to have possible gastritis and was started on protonix. He was also noted to have 12 mm RUL nodule which has been present at least 07/2017. 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 - Peritonitis ([facility]) Social History Substance Use Topics [...] [Amiloride-Hyd* Swelling - Moxifloxacin Swelling - Other Lake-3s Unknown brelinta - Ramipril Swelling Other reaction(s): Facial swelling - Simvastatin Myalgia Other reaction(s): Facial swelling - Voltaren [Diclofena* Unknown Preferred pharmacy: [facility] [address] [place] [phone] - [address] - [phone] [facility] [place] [address] [facility] [address] e- [facility] [place] [address] - [address] [facility] [phone] [address] [facility] [address] Medication Reconciliation: Legend: Stopped, New, Changed, Added [...] (FLONASE) 50 mcg/actuation nasal spray Use 1 Vulcan in the nose once daily as needed. [...] by mouth DAILY (6 AM). [facility] pravastatin (PRAVACHOL) 40 mg tablet Take [...] * FLUTICASONE 50 MCG/ACTUATION * Use 1 Vulcan in the nose once * NITROGLYCERIN 0.4 [...] Encounter Status:Closed by KIARA (PHARMACIST)CHEL on 03/12/18 RUTH Observed: 03/12/2018 Status: COMPLETED Source: [place] 12:00 AM [facility] REPOSITORY Patient Outreach (INTMMN) MAXX KNOTT ([id number]) 1950 M Date Time Provider Department 03/12/18 BRITT PRADO (RN) INTMMN During your visit today, we recorded the following information about you: Britt Prado RN, RN 03/12/2018 12:22 PM Signed First outreach attempt . Patient called for care coordination after his hospital discharge. The patient was unavailable and his voice ramon box is full Britt Prado RN.MAIA [place] [facility]/[employer] [[id number] Britt Prado RN, RN 03/12/2018 2:01 PM Signed TRANSITION CARE MANAGEMENT (TCM) INITIAL CONTACT TRANSITION CARE MANAGEMENT: Date of Outreach: 03/12/2018 Outreach Attempt 1: Contact Not Made Outreach Attempt 2: Contact Not Made Date of Discharge 03/10/2018 Some recent data might be hidden SUMMARY: -Pt discharged from [facility] on 03/10. -Follow up appointment on No [...] voice mail box is full Britt Prado RN.BSGil [place] [facility]/[employer] [[id number] Allergies As of Date: 03/12/2018 Noted Allergy [...] * FLUTICASONE 50 MCG/ACTUATION * Use 1 Vulcan in the nose once * NITROGLYCERIN 0.4 [...] CASE MANAGEM Observed: 03/10/2018 Status: COMPLETED Source: [place] 12:23 PM [facility] REPOSITORY HNO ID: [id number] Author: Mirtha Jackson (Sw) Service: Care Management Author Type: Shipping Order Clerk Type: Care Mgt Progress Note Filed: 03/10/2018 [...] OF CARE Observed: 03/10/2018 Status: COMPLETED Source: [place] 11:57 AM [facility] REPOSITORY HNO ID: [id number] Author: Karlos Cuellar (Licensed Reactor Operator) Service: Pharmacy Author Type: Pharmacist Type: Plan [...] time from Discharge Medication List. KARLOS CUELLAR, CANDY BUTCHER Pager: [phone], 03/10/2018 11:57 AM Medication List START taking [...] Your Medications These medications were sent to [facility] [address] [place] [address] - [address] - [phone] [facility] [place] [address] [place] [address] ? aluminum-magnesium hydroxide-simethicone 200-200-20 mg/5 mL suspension ? pantoprazole DR 40 mg tablet Information about where to get these medications is not yet available Ask your nurse or doctor about these medications ? oxyCODONE-acetaminophen 10-325 mg tablet CNDS Observed: 03/10/2018 Status: COMPLETED Source: [place] 11:19 AM CLINIC OTHER CAMPUS REPOSITORY HNO ID: [id number] Author: Jarocho Dougherty Service: Hospital Medicine Author Type: Physician Type: Discharge Summaries Filed: 03/10/2018 11:22 AM Note Text: DISCHARGE SUMMARY PATIENT NAME: Maxx nKott ADMISSION DATE: 03/08/2018 DISCHARGE DATE: 03/10/2018 ATTENDING [...] artery disease involving coronary bypass graft of [place] heart without angina pectoris Abdominal aortic aneurysm [...] at 3.2 cm. He was evaluated by communication specialist. He had pharmacologic stress test on past January and July which were negative for ischemia. He was continued on ASA, statin, metoprolol and ranexa. Stock Grader recommended to follow up with his communication specialist as outpatient. He was also noted to have possible gastritis and was started on protonix. He was also noted to have 12 mm RUL nodule which has been present at least 07/2017. 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 fluticasone (FLONASE) 1 Vulcan Use 1 Vulcan in the nose once daily as needed. [...] PCP: Bijan Perez MD Follow Up with communication specialist The patient's risk for 30-day readmission is [...] patient. SIGNATURE: Jarocho Dougherty MD PAGER/CONTACT #: [phone] DATE: March 10, 2018 TIME: 11:19 AM CASE MANAGEM Observed: 03/10/2018 Status: COMPLETED Source: [place] 10:49 AM [facility] [place] REPOSITORY HNO ID: [id number] Author: Yane KingRn) MITCHELL Munson Service: Care Management Author Type: Registered Nurse Type: Care Mgt Progress Note Filed: 03/10/2018 10:49 AM Note Text: CARE MANAGEMENT PROGRESS NOTE SERVICE DATE: 03/10/2018 SERVICE TIME: 10:49 AM LOS: 2 days Called Mirtha CLEMENT to assist with transportation home. SIGNATURE: Yane Munson RN PATIENT NAME: Maxx Knott DATE: March 10, 2018 TIME: 10:49 AM PAGER/CONTACT #: [phone] NURSING PROG Observed: 03/09/2018 Status: COMPLETED Source: [place] 8:46 PM [facility] [place] REPOSITORY HNO ID: [id number] Author: Carine KingRn) MITCHELL Chaney Service: (none) Author Type: Registered [...] tomorrow. PROGRESS Observed: 03/09/2018 Status: COMPLETED Source: [place] 3:37 PM CLINIC OTHER CAMPUS REPOSITORY HNO ID: [id number] Author: Jarocho Dougherty Service: Hospital Medicine Author Type: Physician Type: Progress Notes Filed: 03/10/2018 11:22 AM Note Text: DEPARTMENT OF HOSPITAL MEDICINE PROGRESS NOTE SERVICE DATE: 03/09/2018 SERVICE TIME: 3:37 PM Hospital Medicine/Primary Attending: Jarocho Dougherty MD NIGHT AND WEEKEND COVERAGE: After 7pm please page [phone] CHIEF COMPLAINT: chest pain SUBJECTIVE: Reports he [...] H PRN sodium chloride 0.65 % 2 Vulcan (AYR, OCEAN) 2 Vulcan EACH NOSTRIL PRN DATA: Diagnostic tests reviewed [...] month ago negative for ischemia. Evaluated by communication specialist- no plan for LHC, recommended to follow up with his communication specialist as op. May have gastritis, and may [...] RN SIGNATURE: Jarocho Dougherty MD PATIENT NAME: aMxx Knott DATE: March 09, 2018 TIME: 3:37 PM PAGER/CONTACT #: [phone] PLAN OF CARE Observed: 03/09/2018 Status: COMPLETED Source: [place] 11:00 AM CLINIC OTHER CAMPUS REPOSITORY O ID: [id number] Author: Karlos Cuellar (Licensed Reactor Operator) Service: Pharmacy Author Type: Pharmacist Type: Plan of Care Filed: 03/09/2018 11:25 AM Note Text: MEDICATION RECONCILIATION Patient Name:.Maxx Knott : 1950 Reconciliation: Yes All ARMED SECURITY OFFICER medications addressed by LIP Additional comments: Unable to verify where patient fills maintenance medications - contacted several different pharmacies - [facility], [facility], Dimitri Sweet Per O[facility] - patient has had 47 different prescribers for pain medications in the past year. 02/12/2018 1 02/12/2018 Oxycodone-Acetaminophen 5-325 10 7 Pa Den [id number] Rit (0258) 0 10.71 [place] 12/16/2017 1 12/16/2017 Oxycodone-Acetaminophen 5-325 10 3 Im Yusuf [id number] Rit (0258) 0 25.00 [place] 12/15/2017 1 12/14/2017 Oxycodone-Acetaminophen 5-325 4 1 Vi Ivan [id number] Rit (0258) 0 30.00 [place] 12/06/2017 1 12/06/2017 Oxycodone-Acetaminophen 5-325 28 7 Sa Rfaia [id number] Rit (0258) 0 30.00 [place] 12/02/2017 1 12/02/2017 Oxycodone-Acetaminophen 5-325 20 5 Br Orl [id number] Rit (0258) 0 30.00 [place] 11/27/2017 3 11/26/2017 Hydrocodone-Acetamin 5-325 MG 15 4 Yeimi Mck [id number] Rit (3421) 0 18.75 [place] 11/22/2017 1 11/22/2017 Hydrocodone-Acetamin 5-325 MG 8 2 Ge Raoul [id number] Rit (0258) 0 20.00 [place] 11/17/2017 1 11/17/2017 Hydrocodone-Acetamin 5-325 MG 10 2 Je Kli 7615925 Rit (0102) 0 25.00 [place] 11/08/2017 3 11/08/2017 Oxycodone-Acetaminophen 5-325 15 5 Kh Luz Maria 1929291 Rit (3421) 0 22.50 [place] 11/01/2017 1 11/01/2017 Hydrocodone-Acetamin 5-325 MG 10 3 Sa Lof [id number] Rit (0258) 0 16.67 [place] 10/23/2017 1 10/22/2017 Oxycodone-Acetaminophen 5-325 10 3 Ju Winter [id number] Rit (0258) 0 25.00 [place] 10/06/2017 1 10/06/2017 Hydrocodone-Acetamin 5-325 MG 10 2 Ro Cam [id number] Rit (0258) 0 25.00 [place] 09/20/2017 1 09/20/2017 Oxycodone Hcl 5 MG Tablet 12 3 Schwarz Hor Nathan (6614) 0 30.00 [place] 09/16/2017 1 09/16/2017 Hydrocodone-Acetamin 5-325 MG 4 1 Re Ishan [id number] Rose (0166) 0 20.00 [place] 08/17/2017 1 08/17/2017 Oxycodone Hcl 5 MG Tablet 9 3 Ta Amelie [id number] [facility] (0964) 0 22.50 [place] MEDICATION HISTORY Patient Name:.Maxx Knott : 1950 Source of history:Patient: Reliability of source: Patient states he gets all medications filled at [facility] in [place] but the only thing they have ever filled for him is oxycodone. Tried calling around to other pharmacies that showed up on his complete dispense report and he had no recent fills. Does not appear to be adherent to meds and Pharmacy records: [facility] [phone] [facility] [phone] [facility] [phone] [facility] [phone] Medication Nonadherence Identified: Only appears to be getting pain medications filled. The above information represents the best possible medication history: Yes Additional comments: Patient states he gets all medications filled at [facility] in [place] but the only thing they have ever [...] except for his oxycodone on 02/12 at [facility]. Allergies: ALLERGIES Allergen Reactions - Altaseptic Unknown - Brilinta [Ticagrelo* Unknown - Crestor [Rosuvastat* Myalgia - Hctz [Amiloride-Hyd* Swelling - Moxifloxacin Swelling - Other Lake-3s Unknown brelinta - Ramipril Swelling Other reaction(s): Facial swelling - Simvastatin Myalgia Other reaction(s): Facial swelling - Voltaren [Diclofena* Unknown Preferred Pharmacy: [facility] [phone] Current ARMED SECURITY OFFICER Medications: Prior to Admission medications as of [...] (FLONASE) 50 mcg/actuation nasal spray Use 1 Vulcan in the nose once daily as needed. nitroglycerin sublingual (NITROSTAT) 0.[address] ONE(1) TABLET UNDER TONGUE NEEDED FOR CHEST PAIN. IF NO PAIN RELIEF CALL 911 losartan (COZAAR) 100 mg tablet Take 100 mg by mouth once daily. furosemide (LASIX) 20 mg tablet Take 40 mg by mouth once daily as needed. Jeff Bond ([employer]am [employer] Records Clerk) March 09, 2018 11:01 AM KARLOS CUELLAR, CANDY BUTCHER Pager: [phone], CONSULT Observed: 03/09/2018 Status: COMPLETED Source: [place] 9:18 AM [facility] REPOSITORY HNO ID: [id number] Author: Ratna Bhatt Service: Cardiovascular Medicine Author Type: Physician Type: Consults Filed: 03/09/2018 9:37 AM Note Text: Card Consult Dictated Job [id number] 1. CAD-hx CABG, Stenting, multiple hospitalizations at numerous hospitals and many recent negative stress tests including PET scan neg for ischemia 02/14; Large amount of noncardiac chronic chest pain making management difficult. Current enz neg x 2; EKG NSR, nssttc, old IMI( no change) -noncardiac cause of chest pain; home and f/u with his usual communication specialist; would not cath at this time 2.Tobacco-still smokes 3.hx pacer Ratna Bhatt MD Pager [phone] NUTRITION Observed: 03/09/2018 Status: COMPLETED Source: [place] 8:43 AM [facility] REPOSITORY HNO ID: [id number] Author: Samantha Granda RD Service: Nutrition Therapy [...] pain associated with this which is resolving. Ord nauseous, was diaphoretic, and no radiation of [...] Artery Disease Involving Coronary Bypass Graft of [place] Heart Without Angina Pectoris Colostomy Care (Hcc) Pulmonary Nodules Thyroid Nodule Aaa (Abdominal Aortic Aneurysm) Without Rupture (Hcc) Obstructive Sleep Apnea Hyperlipidemia Chest Pain PAST MEDICAL HISTORY Diagnosis Date - AAA (abdominal aortic aneurysm) without rupture ([facility]) 05/13/[address] a/p - CAD (coronary artery disease) 2005 CAD s/p CABG x3 (ATZY-LYQ-pnfngk, WQB-KFB-wkjuzv, MHS-RI7-iizhhsfu) (2006 at [place]) - COPD (chronic obstructive pulmonary disease) (HCC) - Current every day smoker PT SMOKES A PIPE - Diverticulitis Perforated Diverticulitis - Diverticulitis of sigmoid colon 05/15/2017 Added automatically from request for surgery [id number] - Hx of CABG - Pacemaker 02/16/2017 [...] : 90.4 kg (199 lb 3.2 oz), Jennifer 03/03/17 : 90.7 kg (200 lb), stated weight [place] Body Weight: 70 kg Dosing Weight: 89.6 kg Resting Metabolic Rate: 1654 Estimated kilocalorie needs: 9654-4721 kilocalories determined by 15-20 kcal/kg Estimated protein [...] [Amiloride-Hyd* Swelling - Moxifloxacin Swelling - Other Lake-3s Unknown brelinta - Ramipril Swelling Other reaction(s): [...] H PRN sodium chloride 0.65 % 2 Vulcan (AYR, OCEAN) 2 Vulcan EACH NOSTRIL PRN Date 03/08/18699 - 03/09/1865803/09/18699 - 03/10/18 0659 Shift 1168-6483 3718-2570 4985-4054 24 Hour Total 1750-5319 2831-1366 4292-2397 24 Hour Total I N T A [...] March 09, 2018 TIME: 8:43 AM PAGER: [phone] MDRD GFR Collected: 03/09/2018 Status: F Source: [facility] 4:15 AM HEALTH SYSTEM REPOSITORY TYPE CODE TESTS RESULT OUT OF RANGE REFERENCE UNITS LAB GFRFN(LOINC >60mL/min/1.73m ) 2 eGFR >60 Result Comment: If the patient is , multiply the result by 1.210. Performed By: #### GFR #### [facility] [address] [place] [address] HEMOGRAM Collected: 03/09/2018 Status: F Source: [facility] 4:15 AM HEALTH SYSTEM REPOSITORY TYPE CODE [...] MPV 10.4 Performed By: #### CBC1 #### [facility] [address] [place] [address] BASIC PANEL Collected: 03/09/2018 Status: F Source: [facility] 4:15 AM HEALTH SYSTEM REPOSITORY TYPE CODE [...] 9 Performed By: #### P8 #### [facility] [address] [place], [place] [address] MAGNESIUM BLOOD Collected: 03/09/2018 Status: F Source: [facility] 4:15 AM HEALTH SYSTEM REPOSITORY TYPE CODE TESTS RESULT OUT OF REFERENCE UNITS RANGE LAB MAG(LOINC) 1.6-2.6 mg/dL Magnesium Blood 2.2 Performed By: #### MAG #### [facility] [address] [place], [place] [address] CONSULT Observed: 03/09/2018 Status: COMPLETED Source: [place] 12:00 AM CLINIC OTHER CAMPUS REPOSITORY HNO ID: [id number] Author: Ratna Bhatt Service: Cardiovascular Medicine Author Type: Physician Type: Consults Filed: 03/10/2018 7:32 AM Note Text: [facility] - Consultation PATIENT NAME: MAXX KNOTT CSN: [id number] DATE OF : 1950 SEX/AGE: M/67 PATIENT TYPE: I [facility]OSP [facility]: [facility] LOCATION: [id number] DATE OF SERVICE: 03/09/[address] Sabrina Sorensen from [facility]. CHIEF COMPLAINT: Chest pain. HISTORY OF PRESENT [...] He was seen here in consult by [facility] by Dr. Santana about a month ago for chest pain. He does have a history of diverticulitis and has a chronic diverting ileostomy. He has had a parastomal hernia. He also goes to the [place]. He has a history of a small [...] Distant heart sounds. No murmur or gallop. [place] nonpalpable. ABDOMEN: Soft, mildly obese. No obvious [...] challenging gentleman. Ratna Bhatt MD Cardiology DAC:modl /[id number] cc:René Anne MD * Dr. Viral Brown Primary care physician TROPONIN I Collected: 03/08/2018 Status: F Source: [facility] 8:09 PM HEALTH SYSTEM REPOSITORY TYPE CODE TESTS RESULT OUT OF REFERENCE UNITS RANGE LAB TROP(LOINC) 0.015-0.045 ng/ml Troponin I 0.022 Performed By: #### TROP #### [place] [address] EKG (AK,AV,EU,FV,HL,DEMARCO,MM,SP) Observed: Status: F Source: [place] 03/08/2018 8:02 PM CLINIC OTHER CAMPUS REPOSITORY NAME : MAXX KNOTT PID : [id number] : 1950 Gender : Male Race : ORD : [id number] Procedure Date : Mar 08 2018 20:02 Edit Date : Mar 13 2018 08:54 Diagnosis:SINUS RHYTHM WITH 1ST DEGREE A-V BLOCK POSSIBLE LEFT ATRIAL ENLARGEMENT INCOMPLETE RIGHT BUNDLE BRANCH BLOCK POSSIBLE INFERIOR INFARCT (CITED ON OR BEFORE 08-MAR-2018) T WAVE ABNORMALITY, CONSIDER ANTEROLATERAL ISCHEMIA ABNORMAL ECG WHEN COMPARED WITH ECG OF 08-MAR-2018 11:16, PREMATURE VENTRICULAR COMPLEXES ARE NO LONGER PRESENT ME INTERVAL HAS INCREASED Confirmed by DO Walker Jeffrey ([id number]) on 03/13/2018 8:54:22 AM Ventricular Rate : 63 BPM Atrial Rate : 63 BPM P-R Interval : 226 ms QRS Duration : 116 ms Q-T Interval : 418 ms QTC Calculation(Bezet) : 427 ms P Powderhorn : 45 degrees R Powderhorn : 51 degrees T Powderhorn : 118 degrees Test Reason : Chest Pain Location : 42 : 4200 [id number] Overread By : DO Walker Jeffrey Editted By : DO Walker Jeffrey Referred By : SABRINA SORENSEN Acquired by : Aissatou Sanchez ED NOTE Observed: 03/08/2018 Status: COMPLETED Source: [place] 6:21 PM CLINIC OTHER CAMPUS REPOSITORY HNO ID: [id number] Author: Joan (Rn) MITCHELL Burton Service: Emergency Medicine Author Type: Registered Nurse Type: ED Notes Filed: 03/08/2018 6:21 PM Note Text: Pt given boxed lunch. HISTORY PHYSICAL Observed: 03/08/2018 Status: COMPLETED Source: [place] 5:28 PM CLINIC OTHER CAMPUS REPOSITORY HNO ID: [id number] Author: Sabrina Sorensen Service: Hospital Medicine Author Type: Physician Type: HANDP Filed: 03/08/2018 5:43 PM Note Text: DEPARTMENT OF HOSPITAL MEDICINE HISTORY AND PHYSICAL EXAM SERVICE DATE: 03/08/2018 SERVICE TIME: 4:30 PM Primary Care Physician: Bijan Perez MD NIGHT AND WEEKEND COVERAGE: From 7am - 7pm, please call [phone] After 7pm, please call cross cover pager #[phone] Subjective CHIEF COMPLAINT: Chest pain HPI: 67yo [...] pain associated with this which is resolving. 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 - Peritonitis ([facility]) PAST SURGICAL HISTORY Procedure Laterality [...] [Amiloride-Hyd* Swelling - Moxifloxacin Swelling - Other Lake-3s Unknown brelinta - Ramipril Swelling Other reaction(s): [...] TIME: 5:28 PM PAGER/CONTACT #: [phone] etx [id number] ECU TROPONIN I Collected: 03/08/2018 Status: F Source: [facility] 4:45 PM HEALTH SYSTEM REPOSITORY TYPE CODE TESTS RESULT OUT OF REFERENCE UNITS RANGE LAB ERTRP(LOINC 0.015-0.045 ng/ml ) ECU Troponin I 0.024 Performed By: #### ERTRP #### [place] [address] CONSULT Observed: 03/08/2018 Status: COMPLETED Source: [place] 3:09 PM CLINIC OTHER CAMPUS REPOSITORY HNO ID: [id number] Author: Olivia Eugene Service: General Surgery Author Type: Resident Type: Consults Filed: 03/08/2018 5:53 PM Note Text: Attestation signed by Tj Hawley at 03/09/2018 11:46 AM Outpatient management Tj [...] is also known to [facility] service at [facility] and has followed up with their clinic [...] (abdominal aortic aneurysm) without rupture ([facility]) 05/13/[address] a/p - CAD (coronary artery disease) 2005 CAD s/p CABG x3 (YRTL-JVK-deitln, JSM-DNH-ingvfg, ZSM-AV3-tptshcju) (2006 at [place]) - COPD (chronic obstructive pulmonary disease) ([facility]) - Current every day smoker PT SMOKES A PIPE - Diverticulitis Perforated Diverticulitis - Diverticulitis of sigmoid colon 05/15/2017 Added automatically from request for surgery [id number] - Hx of CABG - Pacemaker 02/16/2017 s/p PPM () 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 - Peritonitis ([facility]) PAST SURGICAL HISTORY Procedure Laterality [...] follow up with his colorectal surgeon at [facility] as patient indicated he is suppose to have followed up for colostomy reversal - Patient has an extensive cardiac history and should also follow up with his communication specialist for further evaluation (especialy if surgery is [...] ED NOTE Observed: 03/08/2018 Status: COMPLETED Source: [place] 1:55 PM CLINIC OTHER CAMPUS REPOSITORY HNO ID: [id number] Author: Ally Toth) MITCHELL Andrade Service: Emergency Medicine Author Type: Registered Nurse Type: ED Notes Filed: 03/08/2018 1:55 PM Note Text: urine specimen obtained and sent. ED NOTE Observed: 03/08/2018 Status: COMPLETED Source: [place] 1:54 PM [facility] OTHER CAMPUS REPOSITORY HNO ID: [id number] Author: Ally Toth) MITCHELL Andrade Service: Emergency Medicine Author Type: Registered Nurse Type: ED Notes Filed: 03/08/2018 1:54 PM Note Text: Visitor at bedside. ED NOTE Observed: 03/08/2018 Status: COMPLETED Source: [place] 1:53 PM CLINIC OTHER CAMPUS REPOSITORY HNO ID: [id number] Author: Ally Toth) MITCHELL Andrade Service: Emergency Medicine Author Type: Registered Nurse Type: ED Notes Filed: 03/08/2018 1:53 PM Note Text: Patient returned to the Emergency Department. URINALYSIS ROUTINE Collected: 03/08/2018 Status: F Source: [facility] 1:50 PM HEALTH SYSTEM REPOSITORY TYPE CODE [...] Urine NEGATIVE LAB SPG(LOINC) 1.005-1.030 Specific 1.028 [place], Ur LAB PHUR(LOINC 5.0-8.0 ) pH,Urine 6.5 [...] Cast 0.8 Performed By: #### URIN2 #### [place] [address] CHEST 2 VIEWS Observed: 03/08/2018 Status: F Source: [facility] 1:39 PM HEALTH SYSTEM REPOSITORY Performed at [facility] APPROVED BY: Neisha Joy [...] CHEST (GATED) Observed: 03/08/2018 Status: F Source: [facility] WO/W IV CON 1:37 PM HEALTH SYSTEM REPOSITORY Performed at [facility] APPROVED BY: Neisha Joy [...] IV CON Observed: 03/08/2018 Status: F Source: [facility] 1:37 PM HEALTH SYSTEM REPOSITORY Performed at [facility] APPROVED BY: Neisha Joy [...] ED NOTE Observed: 03/08/2018 Status: COMPLETED Source: [place] 1:24 PM CLINIC OTHER CAMPUS REPOSITORY HNO ID: [id number] Author: Ally (Rn) MITCHELL Andrade Service: Emergency Medicine Author Type: Registered Nurse Type: ED Notes Filed: 03/08/2018 1:24 PM Note Text: Patient transported to radiology ED NOTE Observed: 03/08/2018 Status: COMPLETED Source: [place] 1:13 PM [facility] [place] REPOSITORY HNO ID: [id number] Author: Ally KingRn) MITCHELL Andrade Service: Emergency Medicine Author Type: Registered Nurse Type: ED Notes Filed: 03/08/2018 1:13 PM Note Text: Ready for radiology HEMOGRAM/DIFF Collected: 03/08/2018 Status: F Source: [facility] 12:30 PM HEALTH SYSTEM REPOSITORY TYPE CODE [...] 1.28 LAB MONON(LOIN 0.30-0.82 thou/cmm C) Abs. Wirt 0.54 LAB EOSN(LOINC 0.04-0.54 thou/cmm ) Low Abs. Eosin 0.01 LAB BASON(LOIN 0.01-0.08 thou/cmm C) Abs. Baso 0.02 Performed By: #### CBCD1 #### [place] [address] PROTIME Collected: 03/08/2018 Status: F Source: [facility] 12:30 PM HEALTH SYSTEM REPOSITORY TYPE CODE [...] Chest 2012; 141:7S-47S Teofilo RA, et al. [facility] 2017; 70: 252-289 Performed By: #### PT #### [facility] [address] [place] [address] LACTIC ACID Collected: 03/08/2018 Status: F Source: [facility] 12:30 PM HEALTH SYSTEM REPOSITORY TYPE CODE TESTS RESULT OUT OF REFERENCE UNITS RANGE LAB LAC(LOINC) 0.4-2.0 mEq/L Lactic Acid 1.2 Performed By: #### LAC #### [place] [address] COMPREHENSIVE PANEL Collected: 03/08/2018 Status: F Source: [facility] 12:30 PM HEALTH SYSTEM REPOSITORY TYPE CODE [...] Gap 12 Performed By: #### P14 #### [address] [place], [place] [address] LIPASE BLOOD Collected: 03/08/2018 Status: F Source: [facility] 12:30 PM HEALTH SYSTEM REPOSITORY TYPE CODE TESTS RESULT OUT OF REFERENCE UNITS RANGE LAB LIP(LOINC) 73-393 U/L Low Lipase Blood 44 Performed By: #### LIP #### [facility] [address] [place] [address] ECU TROPONIN I Collected: 03/08/2018 Status: F Source: [facility] 12:30 PM HEALTH SYSTEM REPOSITORY TYPE CODE TESTS RESULT OUT OF REFERENCE UNITS RANGE LAB ERTRP(LOINC 0.015-0.045 ng/ml ) ECU Troponin I 0.019 Performed By: #### ERTRP #### [facility] [address] [place] [address] ED NOTE Observed: 03/08/2018 Status: COMPLETED Source: [place] 11:57 AM CLINIC OTHER CAMPUS REPOSITORY HNO ID: [id number] Author: Ally Toth) MITCHELL Andrade Service: Emergency Medicine Author Type: Registered Nurse Type: ED Notes Filed: 03/08/2018 11:58 AM Note Text: Unable to obtain iv x 2 ED PROV NOTE Observed: 03/08/2018 Status: COMPLETED Source: [place] 11:50 AM CLINIC OTHER CAMPUS REPOSITORY HNO ID: [id number] Author: Mikhail Kiran DO Service: Emergency Medicine [...] artery disease) 2005 CAD s/p CABG x3 (NDGJ-IPA-sebzxo, MHD-SNX-xxumzi, ZNW-NU9-vvlqnhqu) (2006 at [place]) - COPD (chronic obstructive pulmonary disease) ([facility]) - Current every day smoker PT SMOKES A PIPE - Diverticulitis Perforated Diverticulitis - Diverticulitis of sigmoid colon 05/15/2017 Added automatically from request for surgery [id number] - Hx of CABG - Pacemaker 02/16/2017 s/p PPM () 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 Basic labs will be ordered. Lactic will [...] DO Mikhail Resendiz (Res) DO Qiana Resident 03/08/181907 Parul Santillan MD 03/08/181923 ED PROV NOTE Observed: 03/08/2018 Status: COMPLETED Source: [place] 11:35 AM [facility] REPOSITORY O ID: [id number] Author: Parul Santillan MD Service: Emergency Medicine [...] 03/08/2018 Time: 11:35 AM Parul Santillan MD 03/08/18 1817 EKG Observed: 03/08/2018 Status: F Source: [place] 11:16 AM [facility] OTHER CAMPUS REPOSITORY NAME : MARILUZ KNOTTY PID : [id number] : 1950 Gender : Male Race : [...] ms QTC Calculation(Bezet) : 433 ms P Powderhorn : 44 degrees R Powderhorn : 23 degrees T Powderhorn : 80 degrees Test Reason : Location : 4 : [facility] Overread By : Parul Santillan Editted By : Parul Santillan Referred By : , Acquired by : Farrah Thompson Observed: 02/28/2018 Status: COMPLETED Source: [place] 12:00 AM [facility] REPOSITORY Letter Text February 28, 2018 Maxx Knott [address] [facility] [address] Dear Mr. Knott, The nurses and staff of J[facility]-3 nursing unit at [facility] hope this letter finds you feeling [...] to contact me, Lee Krause RN at [phone] or e-mail [email or web address]. Additionally, you will receive a survey [...] participation and thank you for choosing the [facility] for your healthcare needs. Sincerely, Lee Krause RN Nurse Internet Sales Representative J[facility]-3 Cardiology Step-down Unit 12 LEAD ELECTROCARDIOGRAM Observed: 02/22/2018 Status: F Source: [place] 1:05 PM [facility] REPOSITORY [facility] Cardiovascular Services [address] [place] [address] 12 Lead EKG 02/19/18 0754 MR#: [id number] Acct: [id number] Name: MAXX KNOTT Rep #: [id number] : 1950 67 From: Kassandra Lundberg MD Attending Dr: Status: DEP ER Ordering Dr: Hue Peters MD Date: 02/19/18 [...] Abnormal ECG Confirmed by LAUREEN METCALF, KASSANDRA ([id number]), news assignment editor LAMAR AHN ([id number]) on 02/22/2018 1:05:12 PM Referred By: FRANCISCO Confirmed By:KASSANDRA LUNDBERG MD 02/22/18 1305 Date Kassandra Lundberg MD CC: [facility]; Hue Peters Signed PROGRESS Observed: 02/22/2018 Status: COMPLETED Source: [place] 8:19 AM [facility] REPOSITORY HNO ID: [id number] Author: Eligio (Rn) MITCHELL Banks Service: (none) [...] RN CNPTOUTREACH Observed: 02/22/2018 Status: COMPLETED Source: [place] 12:00 AM [facility] REPOSITORY Patient Outreach (INTMMN) MAXX KNOTT ([id number]) 1950 M Date Time Provider Department 02/22/18 [...] Unknown Date Reviewed: 02/08/2018 Reviewed by: Tika (Rn) MITCHELL Cordero - Fully Assessed 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 [2804] Cmt: Discharge from [facility] Reason For Visit History Recorded Prescriptions as [...] * FLUTICASONE 50 MCG/ACTUATION * Use 1 Vulcan in the nose once * NITROGLYCERIN 0.4 [...] EMERGENCY DEPARTMENT Observed: 02/19/2018 Status: F Source: [place] SUMMARY 4:51 PM [facility] REPOSITORY [facility] Medical Records Department [address] [place] [address] Emergency Department Summary 02/19/18 0932 MR#: [id number] Acct: [id number] Name: MAXX KNOTT Rep #: [id number] : 1950 67 From: Hue Peters MD PCP: [facility] [place] Status: DEP ER - ER Visit Summary [...] to me that this was done in [place], but chart review says that this was done at the [facility]. Patient states that he has does have [...] stomal herniation This note was generated with [employer] dictation software. It may contain incorrect words, spelling, and punctuation that were not noted in review of the chart prior to signing ED Disposition - Plan for ED Patient: Disposition: Home or Assisted Living Chief Complaint: Chest Pain Diagnosis: Chest pain, Hernia Instructions: What Is a Hernia? Referrals: [facility] [Primary Care Provider] - As soon as possible What to do if you have Problems For any increased pain, shortness of breath, bleeding, nausea or vomiting, chest pain, or any unexpected problems, contact your Primary Care Provider. Call [facility] ([phone]) or report to the closest Emergency Room. Call 911 if necessary. 02/19/18 4651 <Electronically signed by Hue Peters MD> Date Hue Peters MD Cosigner Signature (If Indicated): Date CC: [facility] TROPONIN-I Collected: 02/19/2018 Status: F Source: [place] 11:10 AM [facility] REPOSITORY Order Comment: 'TROP' Serial specimen #1, #2 or #3: 2 TYPE CODE TESTS RESULT OUT OF RANGE REFERENCE UNITS LAB [id number] <0.045 ng/mL Normal < 0.015 TROPONIN-I Result Comment: TROPONIN-I EXPECTED VALUES <0.045 Negative 0.045 - 0.590 Consistent with Cardiac Damage > OR = 0.600 Critical Value Not every elevated troponin is indicative of FL. These values should be used with clinical judgement in examining the patient's clinical picture for diagnosis. To establish a diagnosis of FL versus myocardial injury, there must be a demonstrated rise and/or fall in the troponin values, in addition to ischemic symptoms, EKG changes, new regional wall motion abnormality, and/or angiographical evidence. PLEASE NOTE: REFERENCE RANGES EDITED 17 Performed By: #### L501.4010 #### [facility] [address] [facility] [place], [address] ABDOMEN SINGLE VIEW Observed: 02/19/2018 Status: F Source: [place] (PORTABLE) 8:16 AM [facility] REPOSITORY [facility] Imaging Services [address] [place] [address] Abdomen Single View (Portable) MR#: [id number] Acct: [id number] Name: MAXX KNOTT Rep #: [id number] : 1950 M 67 From: Franki Baker MD PCP: [facility], [place] Status: REG ER Study: Abdomen Single View (Portable) Date of Exam: 02/19/18 Exam# [id number] Ordering Dr: Hue Peters MD STUDY: X-RAY [...] at the colostomy site. Electronically Signed: Franki Baker MD at 8:58 EDT Tel [phone], Service support , CC: [facility]; Hue Peters Geriatric Physical Therapist: Signed CHEST 1 VIEW Observed: 02/19/2018 Status: F Source: [place] (PORTABLE) 8:13 AM [facility] REPOSITORY [facility] Imaging Services [address] [place] [address] Chest 1 View (Portable) MR#: [id number] Acct: [id number] Name: MAXX KNOTT Rep #: [id number] : 1950 67 From: Franki Baker MD PCP: [place], [place] Status: REG ER Study: Chest 1 View (Portable) Date of Exam: 02/19/18 Exam# [id number] Ordering Dr: Hue Peters MD STUDY: X-RAY [...] Franki Baker MD at 8:57 EDT Tel [phone], Service support , CC: [facility]; Hue Peters Geriatric Physical Therapist: Signed CBC W/DIFF, AUTOMATED Collected: 02/19/2018 Status: F Source: [place] 8:05 AM [facility] REPOSITORY TYPE CODE TESTS RESULT OUT [...] Lymph 1.59 Performed By: #### L100.0100 #### [facility] [address] [place], [address] BASIC METABOLIC Collected: 02/19/2018 Status: F Source: [place] PROFILE ([facility]) 8:05 AM [facility] REPOSITORY TYPE CODE TESTS RESULT OUT [...] 7 Performed By: #### L500.2500, L501.4010 #### [facility] [address] [place], [address] TROPONIN-I Collected: 02/19/2018 Status: F Source: [place] 8:05 AM [facility] REPOSITORY TYPE CODE TESTS RESULT OUT OF RANGE REFERENCE UNITS LAB L501.4010 <0.045 ng/mL Normal < 0.015 TROPONIN-I Result Comment: TROPONIN-I EXPECTED VALUES <0.045 Negative 0.045 - 0.590 Consistent with Cardiac Damage > OR = 0.600 Critical Value Not every elevated troponin is indicative of FL. These values should be used with clinical judgement in examining the patient's clinical picture for diagnosis. To establish a diagnosis of FL versus myocardial injury, there must be a demonstrated rise and/or fall in the troponin values, in addition to ischemic symptoms, EKG changes, new regional wall motion abnormality, and/or angiographical evidence. PLEASE NOTE: REFERENCE RANGES EDITED 17 Performed By: #### L500.2500, L501.4010 #### [facility] [address] [facility] [place], [address] PROGRESS Observed: 02/14/2018 Status: COMPLETED Source: [place] 4:54 PM [facility] REPOSITORY HNO ID: [id number] Author: Eligio KingRn) MITCHELL Banks Service: (none) Author Type: Registered Nurse Type: Progress Notes Filed: 02/14/2018 4:55 PM Note Text: Unable to reach patient at this time, VM box is full. Eligio Banks RN PROGRESS Observed: 02/13/2018 Status: COMPLETED Source: [place] 10:19 AM [facility] REPOSITORY HNO ID: [id number] Author: Eligio KingRn) MITCHELL Banks Service: (none) Author Type: Registered Nurse Type: Progress Notes Filed: 02/13/2018 10:19 AM Note Text: Unable to reach patient at this time, VM box is full. Will try again later as time permits. Eligio Banks RN PROGRESS Observed: 02/13/2018 Status: COMPLETED Source: [place] 10:06 AM [facility] REPOSITORY HNO ID: [id number] Author: Eligio (Rn) MITCHELL Banks Service: (none) [...] might be hidden SUMMARY: -Pt discharged from [facility] on 02/12/18. -Follow up appointment: NEEDS. -Medication [...] PA-C/Victor Hugo Chauhan PA-C ? MAIA Pierce, rn transportEmployment Assistant [facility] [phone] [facility] Observed: 02/13/2018 Status: COMPLETED Source: [place] 12:00 AM [facility] REPOSITORY Patient Outreach (INTMMN) MAXX KNOTT ([id number]) 1950 Date Time Provider Department 02/13/18 ELIGIO BANKS (RN) INTMMN During your visit today, we recorded the following information about you: Eligio Banks RN, RN 02/14/2018 4:55 PM Signed TRANSITION [...] might be hidden SUMMARY: -Pt discharged from [facility] Main campus on 02/12/18. -Follow up appointment: NEEDS. -Medication [...] PA-C/Victor Hugo Chauhan PA-C ? MAIA Pierce, rn transportEmployment Assistant [facility] [phone] Eligio Banks RN, RN 02/13/2018 10:19 AM Signed Unable to reach patient at this time, VM box is full. Will try again later as time permits. MITCHELL Pierce RN, RN 02/14/2018 4:55 PM Signed Unable [...] Unknown Date Reviewed: 02/08/2018 Reviewed by: Tika (Rn) MITCHELL Cordero - Fully Assessed Reason for Visit: Employment Assistant Hospital Follow Up [3610] Cmt: TCM Prescriptions as of 02/13/2018 Sig: [...] * FLUTICASONE 50 MCG/ACTUATION * Use 1 Vulcan in the nose once * NITROGLYCERIN 0.4 [...] CASE MANAGEM Observed: 02/12/2018 Status: COMPLETED Source: [place] 8:59 AM [facility] REPOSITORY HNO ID: [id number] Author: Cruzito Ttoh) MITCHELL Hutchison Service: Case Management Author Type: [...] 12, 2018 TIME: 8:59 AM PAGER/CONTACT #: [phone] PROGRESS Observed: 02/12/2018 Status: COMPLETED Source: [place] 8:36 AM [facility] REPOSITORY HNO ID: [id number] Author: Victor Hugo Chauhan (Pa) Service: Cardiovascular Medicine Author Type: Physician Title Insurance Examiner Type: Progress Notes Filed: 02/12/2018 8:43 AM Note Text: [facility]ICINE PROGRESS NOTE (Template ID [id number]) Maxx Knott [id number] PRIMARY SERVICE: Hvi Card Intervention, Dr Bunn HOSPITAL DAY: # 5 INTERVAL HISTORY Pt saw Dr Bunn last night after Pet stress. There was no ischemia. Pt re-assured that his pain is not due to his heart, ok to use tylenol, alleve He will follow up with local bead inspector or local communication specialist. Pt has some pain with the colostomy, [...] hospital medications: sodium chloride 0.65 % 2 Vulcan (AYR, OCEAN) 2 Vulcan EACH NOSTRIL PRN QUEtiapine 100 mg tab(s) [...] Artery Disease Involving Coronary Bypass Graft of [place] Heart Without Angina Pectoris Hx: -- CABG x3 (L:LAD, V:OM, V:RCA) 2005 at [place] -- Multiple PCIs (Last was GREY to [...] with staff Victor Hugo Chauhan PA-C Pager [phone] (please see below for after hours communication) [...] AM CBC Collected: 02/12/2018 Status: F Source: [place] 5:26 AM [facility] REPOSITORY TYPE CODE TESTS RESULT [...] Performed By: #### CBC, BMP, MG1 #### [facility] [address] [place] [id number] BASIC METABOLIC PANL Collected: 02/12/2018 Status: F Source: [place] 5:26 AM [facility] REPOSITORY TYPE CODE TESTS RESULT [...] Performed By: #### CBC, BMP, MG1 #### [facility] [address] [place], [place] [address] MAGNESIUM Collected: 02/12/2018 Status: F Source: [place] 5:26 AM [facility] REPOSITORY TYPE CODE TESTS RESULT OUT OF REFERENCE UNITS RANGE LAB MG 1.7-2.3 mg/dL Magnesium 2.3 Performed By: #### CBC, BMP, MG1 #### [facility] [address] [place], [place] [address] NURSING PROG Observed: 02/11/2018 Status: COMPLETED Source: [place] 3:19 PM [facility] REPOSITORY HNO ID: [id number] Author: Brenna Bazan (Rn) MITCHELL Saenz Service: Radiology Author Type: Registered Nurse Type: Nursing Progress Note Filed: 02/11/2018 3:19 PM Note Text: RADIOLOGY SERVICE PROGRESS NOTE SERVICE DATE: 02/11/2018 SERVICE TIME: 3:19 PM PATIENT IDENTITY VERIFICATION COMPLETED USING TWO (2) METHODS: Patient confirmed name and Date of verbally. PATIENT GENDER DATA: male ALLERGIES: Reviewed and unchanged MEDICATIONS REVIEWED BY: Railroad Passenger Agent PROCEDURE TYPE: NM STRESS: 0.4 mg of [...] 11, 2018 TIME: 3:19 PM PAGER/CONTACT #: [phone] NM PET CARDIAC PERF Observed: 02/11/2018 Status: F Source: [place] REST/STRESS 3:13 PM [facility] REPOSITORY * * *Final Report* * * DATE OF EXAM: Feb 11 2018 3:13PM [facility] 0109 - NM PET CARDIAC PERF REST/STRESS [...] were obtained. See administered doses below. Main [place] Date of service: 02/11/2018 2:55:30 PM Indication: [...] There is no evidence of ischemia. Final Geriatric Physical Therapist: DEION Transcribe Date/Time: Feb 11 2018 2:55P Dictated by : GLORIA ROSENTHAL MD This examination was interpreted and the report reviewed and electronically signed by: GLORIA ROSENTHAL MD on Feb 11 2018 3:43PM EST [id number] PLAN OF CARE Observed: 02/11/2018 Status: COMPLETED Source: [place] 11:36 AM [facility] REPOSITORY HNO ID: [id number] Author: Veronika Bryant (Vmware Consultant) Service: (none) Author Type: (none) Type: Plan of Care Filed: 02/11/2018 11:36 AM Note Text: VITICULTURIST BEDSIDE DELIVERY SURVEY 1. Patient to use [facility] Bedside Delivery - YES 2. If fax, patient would like us to fax prescriptions to Pharmacy of choice a. Pharmacy: b. Location: c. Phone: 3. Insurance card on file - YES 4. Credit card for payment - N/A No prescriptions yet. Please page [phone] upon discharge. PROGRESS Observed: 02/11/2018 Status: COMPLETED Source: [place] 10:13 AM [facility] REPOSITORY HNO ID: [id number] Author: Victor Hugo Mancera) Tien Service: Cardiovascular Medicine Author Type: Physician Title Insurance Examiner Type: Progress Notes Filed: 02/11/2018 4:37 PM Note Text: [facility] PROGRESS NOTE (Template ID [id number]) Maxx Corrigan Bit Bender [id number] PRIMARY SERVICE: Hvi Card Intervention, Dr Bunn [facility] DAY: # 4 INTERVAL HISTORY Pt [...] lipid microspheres 1.1 mg/mL 1.3 mL injection (DEFIN3dim) 1.3 mL INTRAVENOUS DIRECTED PRN heparin 5,000 Units injection 5,000 Units SUBCUTANEOUS q 12 H DATA Recent Labs 02/11/18 0641 02/10/18 0509 02/09/18 0950 WBC 7.14 7.19 8.24 HB 14.4 14.1 13.0 HCT 43.7 42.8 38.9* PLT 256 240 226 Recent Labs 02/11/18 0641 02/10/18 0509 02/09/18 0950 NA 139 139 143 K [...] Artery Disease Involving Coronary Bypass Graft of [place] Heart Without Angina Pectoris Hx: -- CABG x3 (L:LAD, V:OM, V:RCA) 2005 at [place] -- Multiple PCIs (Last was GREY to [...] with staff Victor Hugo Chauhan PA-C Pager [phone] (please see below for after hours communication) [...] PM CBC Collected: 02/11/2018 Status: F Source: [place] 6:41 AM [facility] REPOSITORY TYPE CODE TESTS RESULT OUT OF [...] Performed By: #### CBC, BMP, MG1 #### [facility] [address] [place], [place] [address] BASIC METABOLIC PANL Collected: 02/11/2018 Status: F Source: [place] 6:41 AM [facility] REPOSITORY TYPE CODE TESTS RESULT [...] Performed By: #### CBC, BMP, MG1 #### [facility] [address] [place], [place] [address] MAGNESIUM Collected: 02/11/2018 Status: F Source: [place] 6:41 AM [facility] REPOSITORY TYPE CODE TESTS RESULT OUT OF REFERENCE UNITS RANGE LAB MG 1.7-2.3 mg/dL Magnesium 2.0 Performed By: #### CBC, BMP, MG1 #### [facility] [address] [place], [place] [address] PROGRESS Observed: 02/10/2018 Status: COMPLETED Source: [place] 8:28 AM [facility] REPOSITORY HNO ID: [id number] Author: Hue Kendrick MD Service: Cardiovascular Medicine Author Type: Physician Type: Progress Notes Filed: 02/10/2018 1:54 PM Note Text: [facility]ICINE PROGRESS NOTE (Template ID [id number]) Maxx Knott [id number] PRIMARY SERVICE: Hvi Card Intervention HOSPITAL DAY: [...] lipid microspheres 1.1 mg/mL 1.3 mL injection (DEFIN3dim) 1.3 mL INTRAVENOUS DIRECTED PRN heparin 5,000 [...] CABG x3 (L:LAD, V:OM, V:RCA) 2005 at [place], Multiple PCIs (Last was GREY to LAD 01/2017 at ), 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 ? -- [...] discussed with staff Kira Suarez MD Pager [phone] (please see below for after hours communication) For communication after 5 pm on weekdays and after 12 pm on weekends, please page the following: - Clinical Cardiology patients on all floors: page [phone] - Other Cardiology patients on J5 and J6: page [phone] - Other Cardiology patients on J7 and J8: page [phone] [facility] STAFF PHYSICIAN NOTE OF PERSONAL INVOLVEMENT IN [...] PM CBC Collected: 02/10/2018 Status: F Source: [place] 5:09 AM [facility] REPOSITORY TYPE CODE TESTS RESULT OUT OF [...] Performed By: #### CBC, BMP, MG1 #### [facility] [address] [place] [id number] BASIC METABOLIC PANL Collected: 02/10/2018 Status: F Source: [place] 5:09 AM [facility] REPOSITORY TYPE CODE TESTS RESULT [...] Performed By: #### CBC, BMP, MG1 #### [facility] [address] [place], [place] [address] MAGNESIUM Collected: 02/10/2018 Status: F Source: [place] 5:09 AM [facility] REPOSITORY TYPE CODE TESTS RESULT OUT OF REFERENCE UNITS RANGE LAB MG 1.7-2.3 mg/dL Magnesium 2.0 Result Comment: Results may be falsely increased due to interference by hemolysis. Suggest reorder as clinically indicated. Performed By: #### CBC, BMP, MG1 #### [facility] [address] [place], [place] [address] ECG COMPLETE W Observed: 02/09/2018 Status: F Source: [place] INTERPRETATION 11:22 AM [facility] REPOSITORY NAME : MAXX KNOTT PID : [id number] : 1950 Gender : Male Race : ORD : [id number] Procedure Date : Feb 09 2018 11:22:21 [...] ms QTC Calculation(Bezet) : 472 ms P Powderhorn : 47 degrees R Powderhorn : 24 degrees T Powderhorn : 47 degrees Test Reason : Location : 373 : J73 15 Overread By : ANEUDY DAWSON M.D. Edited By : ANEUDY DAWSON M.D. Referred By : , Acquired by : VICTOR HUGO PHELPS CBC Collected: 02/09/2018 Status: F Source: [place] 9:50 AM [facility] REPOSITORY TYPE CODE TESTS RESULT [...] Performed By: #### CBC, BMP, MG1 #### [facility] [address] [place], [place] [address] BASIC METABOLIC PANL Collected: 02/09/2018 Status: F Source: [place] 9:50 AM [facility] REPOSITORY TYPE CODE TESTS RESULT [...] has been calibrated to be traceable to IDCA. An eGFR <60 mL/min/1.73m2 for >3 months is consistent with chronic kidney disease. Refer to KDOQI guidelines for clinical interpretation. In patients with unstable renal function, e.g. those with acute kidney injury, the eGFR may not accurately reflect actual GFR. Performed By: #### CBC, BMP, MG1 #### [facility] [address] [place], [place] [address] MAGNESIUM Collected: 02/09/2018 Status: F Source: [place] 9:50 AM [facility] REPOSITORY TYPE CODE TESTS RESULT OUT OF REFERENCE UNITS RANGE LAB MG 1.7-2.3 mg/dL Magnesium 1.8 Performed By: #### CBC, BMP, MG1 #### [facility] [address], [place] [id number] PROGRESS Observed: 02/09/2018 Status: COMPLETED Source: [place] 9:01 AM [facility] REPOSITORY HNO ID: [id number] Author: Heu Kendrick MD Service: Cardiovascular Medicine Author Type: Physician Type: Progress Notes Filed: 02/09/2018 1:56 PM Note Text: [facility] CARDI[facility]ULAR [facility]ICINE PROGRESS NOTE (Template ID [id number]) Maxx Knott [id number] PRIMARY SERVICE: Hvi Card Intervention HOSPITAL DAY: [...] lipid microspheres 1.1 mg/mL 1.3 mL injection (DEFIN3dim) 1.3 mL INTRAVENOUS DIRECTED PRN heparin 5,000 Units injection 5,000 Units SUBCUTANEOUS q 12 H oxyCODONE IR 10 mg tab(s) (ROXICODONE) 10 mg ORAL q 6 H PRN DATA Recent Labs 02/08/18 0535 02/07/182039 WBC 8.44 9.39 HB 13.0 14.1 HCT 38.4* 40.9 PLT 231 266 Recent Labs 02/08/1835 02/07/182039 NA 142 141 K 3.3* 3.5* CO2 27 26 BUN 14 10 CREAT 1.04 0.97 GLUC 107* 104* MG 1.9 1.9 IMAGING 02/08 EKG: sinus w/ 1st degree aV block, inferior q waves and precordial TWI Echo: pending ASSESSMENT AND PLAN This is a 67 year old male with a past history notable for CABG x3 (L:LAD, V:OM, V:RCA) 2005 at [place], Multiple PCIs (Last was GREY to LAD [...] artery disease involving coronary bypass graft of [place] heart without angina pectoris ? ? -- [...] discussed with staff Kira Suarez MD Pager [phone] (please see below for after hours communication) 02/09/2018 9:01 AM For communication after 5 pm on weekdays and after 12 pm on weekends, please page the following: - Clinical Cardiology patients on all floors: page [phone] - Other Cardiology patients on J5 and J6: page [phone] - Other Cardiology patients on J7 and J8: page [phone] [facility] STAFF PHYSICIAN NOTE OF PERSONAL INVOLVEMENT IN [...] PM CNDS Observed: 02/08/2018 Status: COMPLETED Source: [place] 8:42 PM [facility] REPOSITORY O ID: [id number] Author: Victor Hugo Chauhan (Pa) Service: Cardiovascular Medicine Author Type: Physician Title Insurance Examiner Type: Discharge Summaries Filed: 02/12/2018 1:46 PM [...] artery disease involving coronary bypass graft of [place] heart without angina pectoris (02/07/2018) Essential hypertension (07/22/2017) Colostomy care (HCC) (02/07/2018) Pulmonary nodules (02/07/2018) Thyroid nodule (02/07/2018) AAA (abdominal aortic aneurysm) without rupture (HCC) (02/07/2018) Obstructive sleep apnea (02/07/2018) Hyperlipidemia (02/08/2018) Reason for Hospitalization: This is a 67 year old male with a past history notable for: -- CABG x3 (L:LAD, V:OM, V:RCA) 2005 at [place] -- Multiple PCIs (Last was GREY to LAD 01/2017 at ) -- 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 Colostomy care ([facility]) CONTINUE these medications which have [...] One Piece Non-Sterile with Window 07/05- 1/'' ?5/Box ICD 10: Prolapsed Stoma K94.09 Print [...] (FLONASE) 50 mcg/actuation nasal spray Use 1 Vulcan in the nose once daily as needed. [...] for follow up: follow up with local bead inspector and local communication specialist at Future Appointments: Please follow-up as recommended [...] AND CKMB Collected: 02/08/2018 Status: F Source: [place] 5:58 PM [facility] REPOSITORY TYPE CODE TESTS RESULT OUT OF REFERENCE UNITS RANGE LAB CK 51-298 U/L Low 27 CK LAB MB <7.7 ng/mL MB 1.0 LAB CKMBRI 0.0-4.0 % CK CK MB MB % not % reported with CK <100 U/L. Performed By: #### CKCKMB, BRAYAN #### [facility] [address] [place] [address] TROPONIN T Collected: 02/08/2018 Status: F Source: [place] 5:58 PM [facility] REPOSITORY TYPE CODE TESTS RESULT OUT OF REFERENCE UNITS RANGE LAB TROPT 0.000-0.029 ng/mL Troponin T <0.010 Performed By: #### CKCKMB, BRAYAN #### [facility] [address] [place] [address] NUTRITION Observed: 02/08/2018 Status: COMPLETED Source: [place] 3:40 PM [facility] REPOSITORY HNO ID: [id number] Author: Basil Piper Service: Nutrition Therapy Author Type: Registered Dietitian Type: Nutrition Filed: 02/08/2018 4:04 PM Note Text: NUTRITION THERAPY SCREENING NOTE SERVICE DATE: 02/08/2018 NUTRITION CARE PLAN Patient's weight is stable and nutritional intake is adequate. Patient is not at risk for malnutrition at this time. Patient with good intakes and weight stable in EPIC. Patient reports history of weight loss prior to colostomy but no significant weight loss noted over past year. Intervention: 1. Recommend Heart Healthy- 4 GM NA diet 2. 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 Pt reports he had some [...] February 08, 2018 TIME: 3:41 PM PAGER: [phone] ALLIED HEALTH Observed: 02/08/2018 Status: COMPLETED Source: [place] 3:01 PM [facility] REPOSITORY HNO ID: [id number] Author: Faviola KingRn) Ian Saldana RN Service: [...] 02/13/18 and he agreed to have the [facility] nurse assess the stoma and skin at that change. Pt. denies any skin or stoma problems. Stoma is approximated 3 1/2 x 1 1/2 and the system worn by pt. is the [place] 4 Center point Lock flat flange and drainable pouch. Pt. brought his own supplies with him. Next Scheduled Visit: 02/13/18 for scheduled change. 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 No Advance Directive: Current Advance Directive: None Watch Caser Attempted to Assist with AD Completion: Yes [...] Walker Has the Patient Been in a Senior Living Facility in the Past 30 days? No SOCIAL: Living Arrangement: Home Lives With: brother Financial Resources: Retired Primary Contact: Extended Emergency Contact Information Primary Emergency Contact: Mary Knott Address: [address] [place] [address] [place] [address] Mobile Relation: Brother Supportive: Yes Other Important [...] 0 I feel financially burdened by my umx-ga-rlshcw expenses for my prescription medication: Disagree mostly [...] RN PATIENT NAME: Maxx Knott DATE: February 08, 2018 TIME: 1:22 PM PAGER/CONTACT #: [phone] CK, TOTAL AND CKMB Collected: 02/08/2018 Status: F Source: [place] 12:46 PM [facility] REPOSITORY TYPE CODE TESTS RESULT OUT OF REFERENCE UNITS RANGE LAB CK 51-298 U/L Low 30 CK LAB MB <7.7 ng/mL MB 1.1 LAB CKMBRI 0.0-4.0 % CK CK MB MB % not % reported with CK <100 U/L. Performed By: #### CKCKMB, BRAYAN #### [facility] [address] [place] [id number] TROPONIN T Collected: 02/08/2018 Status: F Source: [place] 12:46 PM [facility] REPOSITORY TYPE CODE TESTS RESULT OUT OF REFERENCE UNITS RANGE LAB TROPT 0.000-0.029 ng/mL Troponin T <0.010 Performed By: #### CKCKMB, BRAYAN #### [facility] [address] [place] [address] ECG COMPLETE W Observed: 02/08/2018 Status: F Source: [place] INTERPRETATION 8:38 AM [facility] REPOSITORY NAME : MAXX KNOTT PID : [id number] : 1950 Gender : Male Race : ORD : [id number] Procedure Date : Feb 08 2018 08:38:43 [...] ms QTC Calculation(Bezet) : 459 ms P Powderhorn : 49 degrees R Powderhorn : 36 degrees T Powderhorn : 109 degrees Test Reason : Location : 373 : J73 15 Overread By : SHIRLEY WALDEN MD Edited By : SHIRLEY WALDEN MD Referred By : , Acquired by : ASEHR CANNON CBC Collected: 02/08/2018 Status: F Source: [place] 5:35 AM [facility] REPOSITORY TYPE CODE TESTS RESULT [...] CBC, LIPB, BMP, MG1, TSH, HBA1C #### [facility] [address] [place] [address] LIPID PANEL, BASIC Collected: 02/08/2018 Status: F Source: [place] 5:35 AM [facility] REPOSITORY TYPE CODE TESTS RESULT [...] Desk Reference: National Heart, Lung, and Blood [place]. National Institutes of Health. 2001: NIH Publication No. 01-3305. 2. An International Atherosclerosis Society position paper: global recommendations for the management of dyslipidemia: executive summary, Atherosclerosis. 2014: 232(2):410-413. Performed By: #### CBC, LIPB, BMP, MG1, TSH, HBA1C #### [facility] [address] [place] [address] BASIC METABOLIC PANL Collected: 02/08/2018 Status: F Source: [place] 5:35 AM [facility] REPOSITORY TYPE CODE TESTS RESULT [...] CBC, LIPB, BMP, MG1, TSH, HBA1C #### [facility] [address] [place] [id number] MAGNESIUM Collected: 02/08/2018 Status: F Source: [place] 5:35 AM [facility] REPOSITORY TYPE CODE TESTS RESULT OUT OF REFERENCE UNITS RANGE LAB MG 1.7-2.3 mg/dL Magnesium 1.9 Performed By: #### CBC, LIPB, BMP, MG1, TSH, HBA1C #### [facility] [employer] [address], [place] [address] TSH Collected: 02/08/2018 Status: F Source: [place] 5:35 AM [facility] REPOSITORY TYPE CODE TESTS RESULT OUT OF RANGE REFERENCE UNITS LAB TSH 0.400-5.500 uU/mL TSH 1.240 Performed By: #### CBC, LIPB, BMP, MG1, TSH, HBA1C #### [facility] [address], [place] [address] HEMOGLOBIN A1C Collected: 02/08/2018 Status: F Source: [place] 5:35 AM [facility] REPOSITORY TYPE CODE TESTS RESULT OUT OF REFERENCE UNITS RANGE LAB HGBA1C 4.3-5.6 % High Hemoglobin A1c 6.0 LAB HBA0 mg/dL Est. Average Glucose 126 Result Comment: eAG: (Estimated average glucose) is a calculated value from HgbA1c and is telephone claims representative of the average blood glucose level in the last 2-3 month period. Performed By: #### CBC, LIPB, BMP, MG1, TSH, HBA1C #### [facility] [address], [place] [address] CK, TOTAL AND CKMB Collected: 02/08/2018 Status: F Source: [place] 5:35 AM [facility] REPOSITORY TYPE CODE TESTS RESULT OUT OF REFERENCE UNITS RANGE LAB CK 51-298 U/L Low 38 CK LAB MB <7.7 ng/mL MB 1.1 LAB CKMBRI 0.0-4.0 % CK CK MB MB % not % reported with CK <100 U/L. Performed By: #### CKCKMB, BRAYAN #### [facility] [address] [place], [place] [address] TROPONIN T Collected: 02/08/2018 Status: F Source: [place] 5:35 AM [facility] REPOSITORY TYPE CODE TESTS RESULT OUT OF REFERENCE UNITS RANGE LAB TROPT 0.000-0.029 ng/mL Troponin T <0.010 Performed By: #### CKCKMB, BRAYAN #### [facility] [address] [place], [place] [address] ECG COMPLETE W Observed: 02/08/2018 Status: F Source: [place] INTERPRETATION 1:03 AM [facility] REPOSITORY NAME : MAXX KNOTT PID : [id number] : 1950 Gender : Male Race : ORD : [id number] Procedure Date : Feb 08 2018 01:03:23 [...] ms QTC Calculation(Bezet) : 522 ms P Powderhorn : 40 degrees R Powderhorn : 108 degrees T Powderhorn : 52 degrees Test Reason : Location : 373 : [id number] Overread By : SHIRLEY WALDEN MD Edited By : SHIRLEY WALDEN MD Referred By : , Acquired by : BASIL CRAWFORD HISTORY PHYSICAL Observed: 02/07/2018 Status: COMPLETED Source: [place] 10:24 PM [facility] REPOSITORY [facility] ID: [id number] Author: Guero Bunn DO Service: Cardiovascular Medicine Author Type: Physician Type: HANDP Filed: 02/08/2018 1:20 PM Note Text: [facility] HIST[facility] AND PHYSICAL Maxx Knott [id number] PRIMARY SERVICE: Cardiology: Interventional CHIEF COMPLAINT: Chest pain HPI: This is a 67 year old male with a past history notable for: -- CABG x3 (L:LAD, V:OM, V:RCA) 2005 at [place] -- Multiple PCIs (Last was GREY to [...] in our system was in 2015 at [facility] which showed patent RHODES to LAD, and patent vein graft to RCA, with occluded vein graft to obtuse marginals. It appears that he subsequently underwent drug-eluting stent to proximal LAD one year ago at [facility]. To the best I can tell, he [...] of this. Patient was last evaluated at [facility] emergency department on February 02. 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 [...] injection (DEFINITY) 1.3 mL INTRAVENOUS DIRECTED PRN [START ON 02/08/2018] heparin 5,000 Units injection 5,000 Units SUBCUTANEOUS q 12 H oxyCODONE IR 10 mg tab(s) (ROXICODONE) 10 mg ORAL q 6 H PRN ALLERGIES: ALLERGIES Allergen Reactions - Altaseptic Unknown - Brilinta [Ticagrelo* Unknown - Crestor [Rosuvastat* Myalgia - Hctz [Amiloride-Hyd* Swelling - Moxifloxacin Swelling - Other Lake-3s Unknown brelinta - Ramipril Swelling Other reaction(s): [...] Abs Lymph 1.00 - 4.00 k/uL 1.99 Wirt% % 7.1 Abs Wirt <0.87 k/uL 0.67 Eosin% % 2.7 Abs [...] normal. Cardiac Catheterization: most recent report reviewed [facility] 12/27/2015 - Report 1. Left ventricle: The [...] CABG x3 (L:LAD, V:OM, V:RCA) 2005 at [place], Multiple PCIs (Last was GREY to LAD [...] artery disease involving coronary bypass graft of [place] heart without angina pectoris -- Trend cardiac enzymes -- Continue aspirin 81 mg daily -- Continue metoprolol succinate 100 mg daily -- Continue Ranexa 500 mg twice daily -- Continue pravastatin 40 mg daily (multiple other statin intolerances). - Colostomy care ([facility]) -- Continued observation for prolapse or pain [...] staff SIGNATURE: Bijan Meza MD, MPH PAGER: [phone] DATE of SERVICE: 02/07/2018 TIME of SERVICE: 10:24 PM This note was written by the overnight or covering fellow. Please page the primary service pager. [facility] STAFF PHYSICIAN NOTE OF PERSONAL INVOLVEMENT IN [...] discharge home tomorrow and fu with his communication specialist. He wishes to go home if we think there is no immediate threat of an FL. I can't promise him anything and he [...] ED NOTE Observed: 02/07/2018 Status: COMPLETED Source: [place] 9:58 PM [facility] REPOSITORY HNO ID: [id number] Author: Fadi (Rn) MITCHELL Dowling Service: Emergency Medicine Author Type: Registered Nurse Type: ED Notes Filed: 02/07/2018 9:59 PM Note Text: Patient's O2Sats 90% RA. Patient placed on 2lpm NC and sats up to 95%. Breath sounds clear. RT and LIP notified. CONSULT Observed: 02/07/2018 Status: COMPLETED Source: [place] 9:57 PM [facility] REPOSITORY HNO ID: [id number] Author: Keena (Mason Levi MD Service: General Surgery Author Type: [...] (abdominal aortic aneurysm) without rupture ([facility]) 05/13/[address] a/p - CAD (coronary artery disease) 2005 CAD s/p CABG x3 (SZVL-SWI-whmeff, KOS-CJP-vlikvo, IUP-WX8-psllujuw) (2006 at [place]) - COPD (chronic obstructive pulmonary disease) ([facility]) - Current every day smoker PT SMOKES A PIPE - Diverticulitis Perforated Diverticulitis - Diverticulitis of sigmoid colon 05/15/2017 Added automatically from request for surgery [id number] - Hx of CABG - Pacemaker 02/16/2017 s/p PPM () 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 Performed By: #### HSTNT #### [facility] [address] [place], [place] [address] XR CHEST 2V FRONTAL/LAT Observed: 02/07/2018 Status: F Source: [place] 9:08 PM [facility] REPOSITORY * * *Final Report* * * [...] atelectasis. No significant interval change from 10/27/2017. Geriatric Physical Therapist: MAGI Transcribe Date/Time: Feb 07 2018 9:13P Dictated by : BEN GONGORA MD This examination was interpreted and the report reviewed and electronically signed by: JANET LUTZ MD on Feb 07 2018 9:32PM EST [id number] ED NOTE Observed: 02/07/2018 Status: COMPLETED Source: [place] 9:05 PM [facility] REPOSITORY HNO ID: [id number] Author: Fadi (Rn) MITCHELL Dowling Service: Emergency Medicine Author Type: Registered Nurse Type: ED Notes Filed: 02/07/2018 9:05 PM Note Text: Patient to radiology with tech. CBC AND DIFFERENTIAL Collected: 02/07/2018 Status: F Source: [place] 8:40 PM [facility] REPOSITORY TYPE CODE TESTS RESULT [...] k/uL Abs Lymph 1.99 LAB AMONO % Wirt% 7.1 LAB AAMONO <0.87 k/uL Abs Wirt 0.67 LAB AEOS % Eosin% 2.7 LAB AAEOS <0.46 k/uL Abs Eosin 0.25 LAB ABASO % Baso% 0.4 LAB AABASO <0.11 k/uL Abs Baso 0.04 LAB AUNRBC 0 /100 WBC NRBCs 0.0 LAB ABNRBC <0.01 k/uL Absolute nRBC <0.01 LAB DTYP DTYPE Auto Diff Performed By: #### CBCDIF, CMP, HSTNT, LIPA, MG1 #### [facility] [address] [place] [id number] COMP METABOLIC PANEL Collected: 02/07/2018 Status: F Source: [place] 8:40 PM [facility] REPOSITORY TYPE CODE TESTS RESULT [...] #### CBCDIF, CMP, HSTNT, LIPA, MG1 #### [facility] [address] [place], [place] [address] HIGH SENS TROPONIN T Collected: 02/07/2018 Status: F Source: [place] 8:40 PM [facility] REPOSITORY TYPE CODE [...] #### CBCDIF, CMP, HSTNT, LIPA, MG1 #### [facility] [address] [place] [address] LIPASE Collected: 02/07/2018 Status: F Source: [place] 8:40 PM [facility] REPOSITORY TYPE CODE TESTS RESULT OUT OF REFERENCE UNITS RANGE LAB LIPA 16-61 U/L Low Lipase 12 Performed By: #### CBCDIF, CMP, HSTNT, LIPA, MG1 #### [facility] [address] [place], [place] [address] MAGNESIUM Collected: 02/07/2018 Status: F Source: [place] 8:40 PM [facility] REPOSITORY TYPE CODE TESTS RESULT OUT OF REFERENCE UNITS RANGE LAB MG 1.7-2.3 mg/dL Magnesium 1.9 Performed By: #### CBCDIF, CMP, HSTNT, LIPA, MG1 #### [facility] [address] [place] [address] ED NOTE Observed: 02/07/2018 Status: COMPLETED Source: [place] 8:39 PM [facility] REPOSITORY HNO ID: [id number] Author: Fadi (Rn) MITCHELL Dowling Service: Emergency [...] PROV NOTE Observed: 02/07/2018 Status: COMPLETED Source: [place] 7:39 PM [facility] REPOSITORY HNO ID: [id number] Author: Beata Rocha MD Service: Emergency Medicine [...] (abdominal aortic aneurysm) without rupture ([facility]) 05/13/[address] a/p - CAD (coronary artery disease) 2005 CAD s/p CABG x3 (ZAWK-KJM-fdrcbz, NLT-RYD-tafzgb, MIS-GA2-mzmrfipw) (2006 at [place]) - COPD (chronic obstructive pulmonary disease) ([facility]) - Current every day smoker PT SMOKES A PIPE - Diverticulitis Perforated Diverticulitis - Diverticulitis of sigmoid colon 05/15/2017 Added automatically from request for surgery [id number] - Hx of CABG - Pacemaker 02/16/2017 s/p PPM () 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 No significant interval change from 10/27/2017. 220 Surgery to see 2203 Cards to see [...] chest pain, stoma prolapse SIGNATURE: MD Brett Mathew Md, MD Resident 02/07/18 6310 Attending Note I evaluated the patient and personally participated in the nelson components. I agree with the resident's findings and plan as documented and have discussed the case and management of the patient's care with the resident. 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 ED NOTE Observed: 02/07/2018 Status: COMPLETED Source: [place] 7:01 PM [facility] REPOSITORY HNO ID: [id number] Author: Parul KingRn) MITCHELL Mccain Service: Emergency Medicine Author Type: [...] ED NOTE Observed: 02/07/2018 Status: COMPLETED Source: [place] 5:52 PM [facility] REPOSITORY HNO ID: [id number] Author: Kyara Cervantes (Rn) MITCHELL Nance Service: Emergency Medicine Author Type: Registered Nurse Type: ED Notes Filed: 02/07/2018 5:53 PM Note Text: Pt c/o chest laura with shortness of breath over the last hour. Pt also c/o pain at ostomy site PROGRESS Observed: 02/06/2018 Status: COMPLETED Source: [place] 10:41 AM [facility] REPOSITORY HNO ID: [id number] Author: Eligio KingRn) MITCHELL Banks Service: (none) Author Type: Registered Nurse Type: Progress Notes Filed: 02/06/2018 10:42 AM Note Text: Unable to reach patient at this time, VM box is full. Will await response from letter sent 02/01/18. Eligio Banks RN PROGRESS Observed: 02/05/2018 Status: COMPLETED Source: [place] 2:24 PM [facility] REPOSITORY HNO ID: [id number] Author: Eligio KingRn) MITCHELL Banks Service: (none) Author Type: Registered Nurse Type: Progress Notes Filed: 02/06/2018 10:47 AM Note Text: [facility] DEPARTMENT FOLLOW UP INITIAL CONTACT Provider Action/FYI: Unable to reach patient SUMMARY: -Patient discharged from [facility] ED on 02/03/18. -Follow up [...] ? Ron (Res) MD Lien Resident 02/03/18 4883 ? Attending Note I evaluated the patient [...] DC instructions. ?2:56 PM Eligio Banks RN CNPTOUTREA Observed: 02/05/2018 Status: COMPLETED Source: [place] 12:00 AM [facility] REPOSITORY Patient Outreach (INTMMN) MAXX KNOTT ([id number]) 1950 M Date Time Provider Department 02/05/18 ELIGIO BANKS (RN) INTMMN During your visit today, we recorded the following information about you: Eligio Banks RN, RN 02/06/2018 10:47 AM Signed [facility] FOLLOW UP INITIAL CONTACT Provider Action/FYI: Unable to reach patient SUMMARY: -Patient discharged from [facility] ED on 02/03/18. -Follow up [...] ? Ron (Res) MD Lien Resident 02/03/18 1453 ? 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 Stephanie JEAN and Kenisha DRUM STOCK CLERK NOTE Observed: 02/03/2018 Status: COMPLETED Source: [place] 3:24 PM [facility] REPOSITORY HNO ID: [id number] Author: Herlinda KingRn) MITCHELL Del Real Service: Emergency Medicine Author Type: Registered Nurse Type: ED Notes Filed: 02/03/2018 3:25 PM Note Text: Dr Birch repaged for discharge instructions ED NOTE Observed: 02/03/2018 Status: COMPLETED Source: [place] 2:43 PM [facility] REPOSITORY HNO ID: [id number] Author: Sandra KingRnBeth Miller RN Service: Emergency Medicine Author Type: Registered Nurse Type: ED Notes Filed: 02/03/2018 2:56 PM Note Text: Dr. Birch returned page. States patient is to be DC'd from ED and inpatient bed to be cancelled. Waiting on DC instructions. ED NOTE Observed: 02/03/2018 Status: COMPLETED Source: [place] 2:35 PM [facility] REPOSITORY HNO ID: [id number] Author: Sandra KingRnBeth Miller RN Service: Emergency Medicine Author Type: Registered Nurse Type: ED Notes Filed: 02/03/2018 2:55 PM Note Text: Paged Dr. Birch regarding patient's DC. CNDS Observed: 02/03/2018 Status: COMPLETED Source: [place] 2:20 PM [facility] REPOSITORY HNO ID: [id number] Author: Lorraine Ferrell Service: Hospital Medicine Author [...] 2017 Added automatically from request for surgery [id number] CAD (coronary artery disease) 05/16/2017 - Present Overview Nuclear stress test >>No ischemia. EF=47% 2017 Essential hypertension 07/22/2017 - Present Diverticulitis of sigmoid colon 05/15/2017 - Present Overview Added automatically from request for surgery [id number] Resolved Hospital Problems as of 02/03/2018 Noted - Resolved Hospital Chest pain 02/03/2018 - 02/03/2018 Transitions of Care Critical Issues: LABS AND PROCEDURES PENDING AT DISCHARGE: FOLLOW-UP APPOINTMENTS ALREADY SCHEDULED WITH A [facility] PROVIDER: No future appointments. ALLERGIES Allergen Reactions - Altaseptic Unknown - Brilinta [Ticagrelo* Unknown - Crestor [Rosuvastat* Myalgia - Hctz [Amiloride-Hyd* Swelling - Moxifloxacin Swelling - Other Lake-3s Unknown brelinta - Ramipril Swelling Other reaction(s): [...] for Wheezing/Shortness of Breath. fluticasone (FLONASE) 1 Vulcan Use 1 Vulcan in the nose once daily as needed. [...] discharge management of this patient. SIGNATURE: Lorraine Kiser MD PAGER/CONTACT #: DATE: February 03, 2018 TIME: 2:20 PM NUTRITION Observed: 02/03/2018 Status: COMPLETED Source: [place] 11:37 AM [facility] REPOSITORY [facility] ID: [id number] Author: Samantha Granda RD Service: Nutrition Therapy [...] lightheadedness. ?He does have a history of FL ?2 as well as CABG. ?Stated he [...] February 03, 2018 TIME: 11:37 AM PAGER: [phone] CONSULT Observed: 02/03/2018 Status: COMPLETED Source: [place] 10:43 AM [facility] REPOSITORY HNO ID: [id number] Author: Heri Santana Service: Cardiovascular Medicine Author Type: Physician Type: Consults Filed: 02/03/2018 11:06 AM Note Text: CONSULT: CARDIOLOGY SERVICE SERVICE DATE: 02/03/2018 SERVICE TIME: 10:43 AM CONSULTING PHYSICIAN: Heri Santana MD, [facility] PCP: Bijan Perez MD ATTENDING: Lorraine Ferrell [...] (abdominal aortic aneurysm) without rupture ([facility]) 05/13/[address] a/p - CAD (coronary artery disease) 2005 CAD s/p CABG x3 (ULEA-WHM-punwwq, RGV-GQT-bxmsoc, UQY-DS2-dlrcgzyk) (2006 at [place]) - COPD (chronic obstructive pulmonary disease) ([facility]) - Current every day smoker PT SMOKES A PIPE - Diverticulitis Perforated Diverticulitis - Diverticulitis of sigmoid colon 05/15/2017 Added automatically from request for surgery [id number] - Hx of CABG - Pacemaker 02/16/2017 s/p PPM () 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 [...] lipid microspheres 1.1 mg/mL 1.3 mL injection (DEFIN3dim) 1.3 mL INTRAVENOUS DIRECTED PRN iv contrast (radiology procedure) INTRAVENOUS DIRECTED PRN nitroglycerin sublingual 0.4 mg tab(s) (NITROQUICK) 0.4 mg SUBLINGUAL q 5 MIN PRN ALLERGIES Allergen Reactions - Altaseptic Unknown - Brilinta [Ticagrelo* Unknown - Crestor [Rosuvastat* Myalgia - Hctz [Amiloride-Hyd* Swelling - Moxifloxacin Swelling - Other Lake-3s Unknown brelinta - Ramipril Swelling Other reaction(s): [...] Cholesterol, Total 182 10/02/2016 Prior Cardiac Workup: [place] 07/2017: CONCLUSIONS: ?1. SPECT Perfusion Study: Abnormal. [...] cessation Will sign off. FU with his communication specialist at [place]. Orders reviewed and I agree with the cardiac orders. SIGNATURE: Heri Santana MD, [facility] PATIENT NAME: Maxx Knott DATE: February 03, 2018 TIME: 10:43 AM PAGER/CONTACT #: [phone] Collected: 02/03/2018 Status: F Source: [facility] 4:32 AM [facility] REPOSITORY TYPE CODE TESTS RESULT OUT OF RANGE REFERENCE UNITS LAB GFRFN(LOINC >60mL/min/1.73m ) 2 eGFR >60 Result Comment: If the patient is , multiply the result by 1.210. Performed By: #### GFR #### [facility] [address] [place] [address] HEMOGRAM Collected: 02/03/2018 Status: F Source: [address] [facility] REPOSITORY TYPE CODE TESTS RESULT [...] MPV 10.4 Performed By: #### CBC1 #### [place] [address] TROPONIN I Collected: 02/03/2018 Status: F Source: [address] [facility] REPOSITORY TYPE CODE TESTS RESULT OUT OF REFERENCE UNITS RANGE LAB TROP(LOINC) 0.015-0.045 ng/ml Troponin I < 0.015 Performed By: #### TROP #### [place] [address] COMPREHENSIVE PANEL Collected: 02/03/2018 Status: F Source: [address] [facility] REPOSITORY TYPE CODE TESTS RESULT [...] Gap 7 Performed By: #### P14 #### [place] [address] HISTORY PHYSICAL Observed: 02/03/2018 Status: COMPLETED Source: [place] 1:51 AM [facility]IN[facility] OTHER [facility]AMP[facility] REPOSITORY O ID: [id number] Author: Lemuel Mcdaniels Service: Hospital Medicine Author [...] After 7pm, please call cross cover pager #[phone] Subjective CHIEF COMPLAINT: Chest Pain This is a 67-year-old male presents for evaluation of chest pain he states the chest pain started suddenly about one hour prior to arrival he stated that is pressure-like in nature he had some nausea some vomiting some diaphoresis. As well as some lightheadedness. He does have a history of FL ?2 as well as CABG. 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 Results for orders placed or performed during the hospital encounter of 02/02/18 XR CHEST 1V FRONTAL Result Value Ref Range Palliative Care Nurse EXAM TITLE: CHEST 1 VIEW DATE: 02/02/2018 [...] (GATED) WO/W IVCON Result Value Ref Range Palliative Care Nurse CT ANGIO CHEST WITHOUT AND WITH IV [...] ABD/PEL W IVCON Result Value Ref Range Palliative Care Nurse CT ANGIO CHEST WITHOUT AND WITH IV [...] Lymph 1.42 0.84 - 2.85 thou/cmm Abs. Wirt 0.61 0.30 - 0.82 thou/cmm Abs. Eosin [...] 10 8 - 16 [facility] TROPONIN I ([facility]) Result Value Ref Range [facility] Troponin I <0.015 0.015 - 0.045 ng/ml MDRD GFR Result Value Ref Range eGFR >60 >60mL/min/1.73m2 [facility] TROPONIN [facility] ([facility]) Result Value Ref Range [facility] Troponin I 0.017 0.015 - 0.045 ng/ml Active Hospital Problems Diagnosis - Chronic systolic congestive heart failure (HCC) EF=47% April 2017 Added automatically from request for surgery [id number] - CAD (coronary artery disease) Nuclear stress test >>No ischemia. EF=47% 2017 - Essential hypertension - Diverticulitis of sigmoid colon Added automatically from request for surgery [id number] ASSESSMENT AND PLAN # Severe Chest Pain [...] 1871 EKG Observed: 02/02/2018 Status: F Source: [place] 10:24 PM CLINIC OTHER CAMPUS REPOSITORY NAME : MAXX KNOTT PID : [id number] : 1950 Gender : Male Race : [...] ms QTC Calculation(Bezet) : 514 ms P Powderhorn : -28 degrees R Powderhorn : 81 degrees T Powderhorn : 42 degrees Test Reason : Location : 4 : [facility] Overread By : Vianney Cantu Editted By : Vianney Cantu Referred By : LATANYA ZHENG Acquired by : Shazia Ngo ED NOTE Observed: 02/02/2018 Status: COMPLETED Source: [place] 10:14 PM CLINIC OTHER CAMPUS REPOSITORY HNO ID: [id number] Author: Aissatou (Rn) MITCHELL Holt Service: Emergency Medicine Author Type: Registered Nurse Type: ED Notes Filed: 02/02/2018 10:14 PM Note Text: Dr. Emmanuel at bedside to update pt [facility] TROPONIN I Collected: 02/02/2018 Status: F Source: [facility] 10:13 PM HEALTH SYSTEM REPOSITORY TYPE CODE TESTS RESULT OUT OF REFERENCE UNITS RANGE LAB ERTRP(LOINC 0.015-0.045 ng/ml ) ECU Troponin I 0.017 Performed By: #### ERTRP #### [facility] [address] [place] [address] CTA CHEST (GATED) Observed: 02/02/2018 Status: F Source: [facility] WO/W IV CON 8:11 PM HEALTH SYSTEM REPOSITORY Performed at [facility] APPROVED BY: Chele Valdes [...] IV CON Observed: 02/02/2018 Status: F Source: [facility] 8:11 PM HEALTH SYSTEM REPOSITORY Performed at [facility] APPROVED BY: Chele Vadles MD CT ANGIO CHEST WITHOUT AND WITH [...] ED NOTE Observed: 02/02/2018 Status: COMPLETED Source: [place] 8:02 PM CLINIC OTHER CAMPUS REPOSITORY HNO ID: [id number] Author: Antonio Dixon RN Service: Emergency Medicine Author Type: Registered Nurse Type: ED Notes Filed: 02/02/2018 8:02 PM Note Text: Pt to CT ED NOTE Observed: 02/02/2018 Status: COMPLETED Source: [place] 7:45 PM CLINIC OTHER CAMPUS REPOSITORY HNO ID: [id number] Author: Antonio Dixon RN Service: Emergency Medicine Author Type: Registered Nurse Type: ED Notes Filed: 02/02/2018 7:45 PM Note Text: Pts Cpap settings at home is 15. ED NOTE Observed: 02/02/2018 Status: COMPLETED Source: [place] 7:18 PM [facility] REPOSITORY HNO ID: [id number] Author: Antonio KingRn) MITCHELL Dixon Service: Emergency Medicine Author Type: Registered Nurse Type: ED Notes Filed: 02/02/2018 7:19 PM Note Text: Sejal from CT made aware that pt is ready for CT ED NOTE Observed: 02/02/2018 Status: COMPLETED Source: [place] 7:17 PM [facility] REPOSITORY HNO ID: [id number] Author: Antonio KingRn) MITCHELL Dixon Service: Emergency Medicine Author Type: Registered Nurse Type: ED Notes Filed: 02/02/2018 7:17 PM Note Text: Report obtained, assuming care of pt at this time. ED NOTE Observed: 02/02/2018 Status: COMPLETED Source: [place] 6:59 PM [facility] REPOSITORY HNO ID: [id number] Author: Herbert KingRn) MITCHELL Whiting Service: Emergency Medicine Author Type: Registered Nurse Type: ED Notes Filed: 02/02/2018 6:59 PM Note Text: Pt placed on continuous alarm security or surveillance monitor, automatic bp cuff, and continual pulse ox. ED NOTE Observed: 02/02/2018 Status: COMPLETED Source: [place] 6:20 PM [facility] REPOSITORY HNO ID: [id number] Author: Herbert KingRnBeth Whiting RN Service: Emergency Medicine Author Type: Registered Nurse Type: ED Notes Filed: 02/02/2018 6:21 PM Note Text: Per dr. Zheng give nitro after morphine kicks in and if bp still above >140 HEMOGRAM/DIFF Collected: 02/02/2018 Status: F Source: [facility] 6:14 PM HEALTH SYSTEM REPOSITORY TYPE CODE [...] 1.42 LAB MONON(LOIN 0.30-0.82 thou/cmm C) Abs. Wirt 0.61 LAB EOSN(LOINC 0.04-0.54 thou/cmm ) Abs. Eosin 0.16 LAB BASON(LOIN 0.01-0.08 thou/cmm C) Abs. Baso 0.03 Performed By: #### CBCD1 #### [place] [address] BASIC PANEL Collected: 02/02/2018 Status: F Source: [facility] 6:14 PM HEALTH SYSTEM REPOSITORY TYPE CODE [...] 10 Performed By: #### P8 #### [facility] [address] [address] ECU TROPONIN I Collected: 02/02/2018 Status: F Source: [facility] 6:14 PM HEALTH SYSTEM REPOSITORY TYPE CODE TESTS RESULT OUT OF REFERENCE UNITS RANGE LAB ERTRP(LOINC 0.015-0.045 ng/ml ) ECU Troponin I < 0.015 Performed By: #### ERTRP #### [facility] [address] [place], [place] [address] CHEST 1 VIEW Observed: 02/02/2018 Status: F Source: [facility] 5:56 PM HEALTH SYSTEM REPOSITORY Performed at [facility] APPROVED BY: Cherise Cedeño [...] PROV NOTE Observed: 02/02/2018 Status: COMPLETED Source: [place] 5:33 PM CLINIC OTHER CAMPUS REPOSITORY HNO ID: [id number] Author: Kajal Laurent MD Service: Emergency Medicine Author Type: Physician Type: ED Provider Notes Filed: 02/03/2018 3:48 PM Note Text: ED Provider Note Patient Name: Maxx Knott SERVICE DATE: 02/02/18 History Patient presents with: Chest Pain: pt arrives to ED w/ midsternal chest pain beginning 30 min ago. Pain raidates into back. +SOB, +lightheadedness, +n/v. Pt has Hx of FL x 2, CABG x3 vessels. Pt also [...] lightheadedness. He does have a history of FL ?2 as well as CABG. 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 Wirt 0.61 0.30 - 0.82 thou/cmm Abs. Eosin [...] 10 8 - 16 ECU TROPONIN I ([facility] ED) Result Value Ref Range ECU Troponin I <0.015 0.015 - 0.045 ng/ml MDRD GFR Result Value Ref Range eGFR >60 >60mL/min/1.73m2 ECU TROPONIN I ([facility] ED) Result Value Ref Range ECU Troponin I 0.017 0.015 - 0.045 ng/ml TROPONIN I (SC) Result Value Ref Range Troponin I <0.015 [...] >60mL/min/1.73m2 EKG (AK,AV,EU,FV,HL,DEMARCO,MM,SP) Result Value Ref Range Palliative Care Nurse NAME : MAXX KNOTT PID : [id number] : 1950 Gender : Male Race : ORD : [id number] Procedure Date : Feb 02 2018 17:24 [...] ms QTC Calculation(Bezet) : 439 ms P Powderhorn : 47 degrees R Powderhorn : 37 degrees T Powderhorn : 29 degrees Test Reason : Arrhythmia Location : 4 : AKED EM Overread By : Vianney Cantu Editted By : Vianney Cantu Referred By : LATANYA ZHENG Acquired by : Marcelo Jewell EKG Result Value Ref Range Palliative Care Nurse NAME : MAXX KNOTT PID : [id number] : 1950 Gender : Male Race : ORD : Procedure Date : Feb 02 2018 22:24 Edit Date : Feb 03 2018 04:59 Diagnosis:AV dual-paced rhythm with prolonged AV conduction ABNORMAL ECG WHEN COMPARED WITH ECG OF 02-FEB-2018 17:24, CURRENT UNDETERMINED RHYTHM PRECLUDES RHYTHM COMPARISON, NEEDS REVIEW QUESTIONABLE CHANGE IN QRS DURATION Confirmed by Vianney aCntu ([id number]) on 02/03/2018 4:59:49 AM Ventricular Rate : 60 BPM Atrial Rate : 60 BPM P-R Interval : 232 ms QRS Duration : 172 ms Q-T Interval : 514 ms QTC Calculation(Bezet) : 514 ms P Powderhorn : -28 degrees R Powderhorn : 81 degrees T Powderhorn : 42 degrees Test Reason : Location [...] Ron Moore (Res) MD Lien Resident 02/03/18 1453 Attending Note I evaluated the patient and personally participated in the nelson components. I agree with the resident's findings and plan as documented and have discussed the case and management of the patient's care with the resident. Signature: Kajal Laurent MD Date: 02/03/2018 Time: 3:48 PM Kajal Laurent MD 02/03/18 1548 ED NOTE Observed: 02/02/2018 Status: COMPLETED Source: [place] 5:25 PM [facility] REPOSITORY HNO ID: [id number] Author: Lynn KingRn) MITCHELL Galvan Service: (none) Author Type: Registered Nurse Type: ED Notes Filed: 02/02/2018 5:25 PM Note Text: Bed: 13-ED Expected date: Expected time: Means of arrival: Comments: triage EKG (AK,AV,EU,FV,HL,DEMARCO,MM,SP) Observed: Status: F Source: [place] 02/02/2018 5:24 PM [facility] OTHER [place] REPOSITORY NAME : MAXX KNOTT PID : [id number] : 1950 Gender : Male Race : ORD : [id number] Procedure Date : Feb 02 2018 17:24 [...] ms QTC Calculation(Bezet) : 439 ms P Powderhorn : 47 degrees R Powderhorn : 37 degrees T Powderhorn : 29 degrees Test Reason : Arrhythmia Location : 4 : AKED EM Overread By : Vianney Cantu Editted By : Vianney Cantu Referred By : LATANYA ZHENG Acquired by : Marcelo Jewell PROGRESS Observed: 02/01/2018 Status: COMPLETED Source: [place] 1:16 PM [facility] REPOSITORY HNO ID: [id number] Author: Eligio (Rn) MITCHELL Banks Service: (none) [...] discharge from primary care coordination. MAIA Pierce, rn transportEmployment Assistant [facility] [phone] CNPTOUTREACH Observed: 02/01/2018 Status: COMPLETED Source: [place] 12:00 AM [facility] REPOSITORY Patient Outreach (INTMMN) MAXX KNOTT ([id number]) 1950 M Date Time Provider Department 02/01/18 [...] discharge from primary care coordination. MAIA Pierce, rn transportEmployment Assistant 0 Internal Medicine [phone] Allergies As of Date: 02/01/2018 Noted Allergy [...] Vigil - Fully Assessed 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 [4342] Cmt: PCC contact letter Prescriptions as of [...] * FLUTICASONE 50 MCG/ACTUATION * Use 1 Vulcan in the nose once * NITROGLYCERIN 0.4 [...] Recorded Letter Text Bijan Perez MD [address] [place] [address] Eligio Banks RN February 01, 2018 Maxx Alvarezman [id number] [address] [facility] [address] 1950 Dear Maxx Knott, We have been trying to contact you in regards to Care Coordination. Our efforts to reach you have been unsuccessful and would appreciate a call back at your earliest convenience at [phone]. If we haven't heard back from you within seven days, then we will assume that you are not interested in participating in the care coordination program. We look forward to assisting you in your journey to better health. Thank you and have a great day. Sincerely, Bijan Perez MD and Eligio Banks RN, Lawn Service Manager Encounter Status:Closed by ELIGIO BANKS on 02/01/18 12 LEAD ELECTROCARDIOGRAM Observed: 12/20/2017 Status: F Source: [place] 1:30 PM [facility] REPOSITORY [facility] Cardiovascular Services [address] [place] [address] 12 Lead EKG 12/17/17 1111 MR#: [id number] Acct: [id number] Name: MAXX KNOTT Rep #: [id number] : 1950 67 From: Kassandra Lundberg MD [...] wave abnormality Confirmed by LAUREEN METCALF, KASSANDRA ([id number]), news assignment editor LAMAR AHN ([id number]) on 12/20/2017 1:30:05 PM Referred By: NAZIA/ABY Confirmed By:KASSANDRA LUNDBERG MD 12/20/17 1330 Date Kassandra Lundberg MD CC: [facility]; Gabriel Mandujano MD Signed EMERGENCY DEPARTMENT Observed: 12/17/2017 Status: F Source: [place] SUMMARY 5:08 PM [facility] REPOSITORY [facility] Medical Records Department [address] [place] [address] Emergency Department Summary 12/17/17 1238 MR#: [id number] Acct: [id number] Name: MAXX KNOTT Rep #: [id number] : 1950 67 From: Gabriel Mandujano MD PCP: [place], [place] Status: DEP ER - ER Visit Summary Date of Service: 12/17/17 Chief Complaint: Colostomy bag broke History of Present Illness: The patient is a 67 M who goes to the [facility]. He presents complaining that his colostomy bag broke approximately 30 minutes ago. States that he has a history of prolapse of his ostomy and that he is supposed to have this reversed at [facility] next month. He states that he does [...] soon as possible as well as the [facility]. I do feel at this point patient needs to have a care plan he will be referred to case management. Disposition: Home in stable condition Impression: 1. Chest pain, atypical. 2. MARTIN score 4. 3. Colostomy prolapse, recurrent. This note was generated with [employer] dictation software. It may contain incorrect words, spelling, and punctuation that were not noted in review of the chart prior to signing ED Disposition - Plan for ED Patient: Chief Complaint: Chest Pain Instructions: Discharge Instructions for Colostomy, ED Chest Pain Atypical Unkn Cause Referrals: [facility] [Primary Care Provider] - As soon as possible What to do if you have Problems For any increased pain, shortness of breath, bleeding, nausea or vomiting, chest pain, or any unexpected problems, contact your Primary Care Provider. Call [facility] ([phone]) or report to the closest Emergency Room. Call 911 if necessary. 12/17/17 0193 <Electronically signed by Gabriel Mandujano MD> Date Gabriel Mandujano MD Cosigner Signature (If Indicated): Date CC: [facility] CHEST 1 VIEW Observed: 12/17/2017 Status: F Source: [place] (PORTABLE) 11:28 AM [facility] REPOSITORY [facility] Imaging Services [address] [place] [address] Chest 1 View (Portable) MR#: [id number] Acct: [id number] Name: MAXX KNOTT Rep #: [id number] : 1950 M 67 From: Herbert Huang DO PCP: [facility] [place] Status: PRE ER Study: Chest 1 View (Portable) Date of Exam: 12/17/17 Exam# [id number] Ordering Dr: Gabriel Mandujano MD STUDY: X-RAY [...] process in the chest. Electronically Signed: Herbert Huang DO at 12:13 EDT Tel , Service support , CC: [facility]; Gabriel Mandujano MD Geriatric Physical Therapist: Signed CBC W/DIFF, AUTOMATED Collected: 12/17/2017 Status: F Source: [place] 12:00 AM [facility] REPOSITORY TYPE CODE TESTS RESULT OUT [...] Lymph 1.51 Performed By: #### L100.0100 #### [facility] [address] [place], [address] BASIC METABOLIC Collected: 12/17/2017 Status: F Source: [place] PROFILE (BMP) 12:00 AM [facility] REPOSITORY TYPE CODE TESTS RESULT OUT [...] GAP Performed By: #### L500.2500, L501.4010 #### [facility] [place], [address] TROPONIN-I Collected: 12/17/2017 Status: F Source: [place] 12:00 AM [facility] REPOSITORY TYPE CODE TESTS RESULT OUT OF RANGE REFERENCE UNITS LAB L501.4010 <0.045 ng/mL Normal < 0.015 TROPONIN-I Result Comment: TROPONIN-I EXPECTED VALUES <0.045 Negative 0.045 - 0.590 Consistent with Cardiac Damage > OR = 0.600 Critical Value Not every elevated troponin is indicative of FL. These values should be used with clinical judgement in examining the patient's clinical picture for diagnosis. To establish a diagnosis of FL versus myocardial injury, there must be a demonstrated rise and/or fall in the troponin values, in addition to ischemic symptoms, EKG changes, new regional wall motion abnormality, and/or angiographical evidence. PLEASE NOTE: REFERENCE RANGES EDITED 17 Performed By: #### L500.2500, L501.4010 #### [facility] [address] [place], [address] PROGRESS Observed: 12/10/2017 Status: COMPLETED Source: [place] 11:10 AM [facility] REPOSITORY HNO ID: [id number] Author: Eligio KingRn) MITCHELL Banks Service: (none) Author Type: Registered Nurse Type: Progress Notes Filed: 12/10/2017 11:11 AM Note Text: Unable to reach patient at this time, left VM to return call to the office. Eligio Banks RN PROGRESS Observed: 12/06/2017 Status: COMPLETED Source: [place] 10:11 AM [facility] REPOSITORY HNO ID: [id number] Author: Eligio Toth) MITCHELL Banks Service: (none) Author Type: Registered Nurse Type: Progress Notes Filed: 12/06/2017 10:12 AM Note Text: Unable to reach patient at this time, VM box is full. SMS message sent with number to call back. Eligio Banks RN PROGRESS Observed: 12/04/2017 Status: COMPLETED Source: [place] 3:57 PM [facility] REPOSITORY HNO ID: [id number] Author: Eligio Toth) MITCHELL Banks Service: (none) Author Type: Registered Nurse Type: Progress Notes Filed: 12/10/2017 11:11 AM Note Text: TRANSITION CARE MANAGEMENT (TCM) INITIAL CONTACT Provider Action/FYI: Unable to reach patient x2 SUMMARY: -Pt discharged from [facility] on 12/02/17. -Follow up appointment NEEDS. -Medication review NEEDS. -Admitted for: Chest pain and prolapsed stoma CONCERNS: N/A NEW MEDICATIONS: ranolazine ER (RANEXA) 500 mg Take 500 mg by mouth twice daily. ? Qty: 60 tablet Refills: 0 MEDS HELD/DISCONTINUED: None BRIEF HOSPITAL COURSE: Presented for evaluation of?sternal chest pressure, 6/10 with associated shortness of breath and lightheadedness. Had [facility] January 2017 with mild non obstructive [...] for inpatient status. ? SIGNATURE: Rosie Torres APRN.MUNICIPAL MAINTENANCE WORKER PATIENT NAME: Maxx Knott DATE: December 02, 2017 TIME: 11:38 AM PAGER/CONTACT #: [phone] ? MAIA Pierce, rn transportEmployment Assistant [facility] [phone] [facility] Observed: 12/04/2017 Status: COMPLETED Source: [place] 12:00 AM [facility] REPOSITORY Patient Outreach (INTMMN) MAXX KNOTT ([id number]) 1950 M Date Time Provider Department 12/04/17 ELIGIO BANKS (RN) INTMMN During your visit today, we recorded the following information about you: Eligio Banks RN, RN 12/10/2017 11:11 AM Signed TRANSITION CARE MANAGEMENT (TCM) INITIAL CONTACT Provider Action/FYI: Unable to reach patient x2 SUMMARY: -Pt discharged from [facility] on 12/02/17. -Follow up appointment NEEDS. -Medication review NEEDS. -Admitted for: Chest pain and prolapsed stoma CONCERNS: N/A NEW MEDICATIONS: ranolazine ER (RANEXA) 500 mg Take 500 mg by mouth twice daily. ? Qty: 60 tablet Refills: 0 MEDS HELD/DISCONTINUED: None BRIEF HOSPITAL COURSE: Presented for evaluation of?sternal chest pressure, 6/10 with associated shortness of breath and lightheadedness. Had [facility] January 2017 with mild non obstructive [...] 02, 2017 TIME: 11:38 AM PAGER/CONTACT #: [phone] ? MAIA Pierce, rn transportEmployment Assistant [facility] [phone] Eligio Banks RN, RN 12/06/2017 10:12 AM [...] Unknown Date Reviewed: 12/02/2017 Reviewed by: Michell Toth) MITCHELL Vigil - Fully Assessed Reason for Visit: Employment Assistant Hospital Follow Up [8830] Cmt: TCM 1 Prescriptions as of 12/04/2017 [...] * FLUTICASONE 50 MCG/ACTUATION * Use 1 Vulcan in the nose once * NITROGLYCERIN 0.4 [...] CASE MANAGEM Observed: 12/02/2017 Status: COMPLETED Source: [place] 1:44 PM CLINIC OTHER CAMPUS REPOSITORY O ID: [id number] Author: Connie (Rn) MITCHELL Ordaz Service: Care Management Author Type: Registered Nurse Type: Care Mgt Progress Note Filed: 12/02/2017 1:47 PM Note Text: CARE MANAGEMENT DISCHARGE NOTE SERVICE DATE: 12/02/2017 SERVICE TIME: 1:44 PM LOS: 0 days Admission Date: 11/30/2017 DISCHARGE ARRANGEMENT (list agency and phone number) Home Care - Nursing, PT and OT Provider: Zita [facility] CAREGIVER ASSESSMENT: Caregiver is ready, willing and able to meet the patient's needs as recommended by the inter-professional team? No Caregiver Needed Patient's transition needs and plan for meeting these needs: discharge home with new HHC, follow up as scheduled Does the patient have an acute stroke diagnosis, or has the patient had a stroke during this admission? No HANDOFF COMMUNICATION: Primary Care Physician: Dr Kavitha Brown TRANSPORTATION ARRANGEMENTS: Car brother to transort ADDITIONAL CONTACT RESOURCES: Discharge Information Row Name Admission (Current) from 11/30/2017 in [facility] Observation Home Health Care Agency [facility] Start of Care ? 24-48 hours after discharge. Pt agreeable to discharge home today with new HHC. [place] will see pt with SOC within 48 hours. Pt's brother will transport. Summary of care sent to Dr Brown. [employer] message sent to [facility] Eligio Banks RN. SIGNATURE: Connie Ordaz RN PATIENT NAME: Maxx Knott DATE: December 02, 2017 TIME: 1:44 PM PAGER/CONTACT #: [phone] CASE MGT INIT Observed: 12/02/2017 Status: COMPLETED Source: [facility] 1:37 PM CLINIC OTHER CAMPUS REPOSITORY HNO ID: [id number] Author: Connie (Rn) MITCHELL Ordaz Service: Care Management Author Type: Registered Nurse Type: Care Mgt Initial Assessment Filed: 12/02/2017 1:43 PM Note Text: CARE MANAGEMENT: ASSESSMENT AND DISCHARGE PLAN SERVICE DATE: 12/02/2017 SERVICE TIME: 1:38 PM PRIMARY CARE PHYSICIAN: Bijan Perez MD (confirmed) ADMISSION STATUS: Inpatient Needs Prior to Discharge: Ready for Discharge 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 N/A SOCIAL: Living Arrangement: Home Lives With: Brother Financial Resources: Retired Primary Contact: Extended Emergency Contact Information Primary Emergency Contact: Mary Knott Address: [address] [place] [address] [facility] Mobile Relation: Brother Supportive: Yes Other Important Patient Contacts: None Caregiver Assessment: Caregiver is ready, willing and able to meet the patient's needs as recommended by the inter-professional team? No Caregiver Needed Patient's transition needs and plan for meeting these needs: discharge home [facility] Does the patient have an acute stroke diagnosis, or has the patient had a stroke during this admission? No Medication Adherence: I am convinced of the importance of my prescription medication: Agree mostly - 0 I worry that my prescription medication will do more harm than good to me Disagree mostly - 0 I feel financially burdened by my [id number] expenses for my prescription medication: Agree mostly [...] EXPLAINED: Yes discussed with Maxx Knott Preference: [facility] POTENTIAL TRANSITION PLANS Home [facility] OT/PT CM met with pt at bedside. Pt states he lives in an apartment with his brother, states he is independent with all needs. Pt is agreeable to [facility] at discharge. Pt states his brother will transport at d/c. [facility] to remain available for continued discharge planning. SIGNATURE: Connie Ordaz RN PATIENT NAME: Maxx Knott DATE: December 02, 2017 TIME: 1:37 PM PAGER/CONTACT #: [phone] NURSING PROG Observed: 12/02/2017 Status: COMPLETED Source: [place] 12:12 PM [facility] REPOSITORY HNO ID: [id number] Author: Michell KingRn) MITCHELL Vigil Service: (none) Author Type: Registered Nurse Type: Nursing Progress Note Filed: 12/02/2017 3:23 PM Note Text: Nursing Progress Note Patient Name: Maxx Knott Patient Location: [place] [id number] Daily Note: 1130 Patient resting in bed, assessment complete, see NPR. c/o pain, abd binder in place, IV patent. 1310 Patient sleeping in bed, no signs of distress. 1522 Discharge instructions given, prescription given, IV removed no issues. eduction provided. Patient off unit stable condition. This note was completed by: Michell Vigil RN CNDS Observed: 12/02/2017 Status: COMPLETED Source: [place] 11:37 AM [facility] REPOSITORY HNO ID: [id number] Author: Josie Covington Service: Hospital Medicine Author Type: Physician Type: Discharge Summaries Filed: 12/02/2017 9:52 PM Note Text: DISCHARGE SUMMARY PATIENT NAME: Maxx Knott ADMISSION DATE: 11/30/2017 DISCHARGE DATE: 12/02/2017 ATTENDING PHYSICIAN: Manish tOt I reviewed and made changes on the discharge summary obtained and documented by the ROUTING MACHINE OPERATOR Josie Covington MD REASON FOR HOSPITALIZATION: Chest pain and prolapsed stoma DIAGNOSIS: Active Problems: Nicotine use disorder, F17.2 Chronic narcotic use Resolved Problems: Colostomy prolapse (HCC) Chest pain CHF exacerbation (HCC) Prolapse of intestine HOSPITAL COURSE: Presented for evaluation of sternal chest pressure, 610 with associated shortness of breath and lightheadedness. [facility] January 2017 with mild non obstructive CAD, [...] for Wheezing/Shortness of Breath. fluticasone (FLONASE) 1 Vulcan Use 1 Vulcan in the nose once daily as needed. [...] 02, 2017 TIME: 11:38 AM PAGER/CONTACT #: [phone] THERAPY NT Observed: 12/02/2017 Status: COMPLETED Source: [place] 10:17 AM [facility] REPOSITORY O ID: [id number] Author: Vandana Rodriguez Service: Physical Therapy Author Type: Physical Therapist Type: Therapy (PT/OT/Speech/Resp) Filed: 12/02/2017 11:23 AM Note Text: Attestation signed by Rosie Torres at 12/02/2017 1:04 PM Rosie Torres APRN.CNP December 02, 2017 1:04 PM Physical Therapy Evaluation SERVICE DATE: 12/02/2017 SERVICE TIME: 1017 to 1044 ROOM: [place] [address]- Recommended Discharge Disposition: Home PT - currently [...] Diagnosis: Reduced mobility-other Interventions Provided: Evaluation;Therapeutic Activity (69913);Gait Training (71771) $ Evaluation-Low (90353) Billed Units: 1 unit Therapeutic Activity (34611) Treatment Minutes: 8 1 unit Skilled Intervention(s): [...] - home PT and rationale Gait Training (95366) Treatment Minutes: 5 0 units Skilled Intervention(s): [...] NURSING PROG Observed: 12/02/2017 Status: COMPLETED Source: [place] 7:23 AM CLINIC OTHER CAMPUS REPOSITORY HNO ID: [id number] Author: Niki (Rn) MITCHELL Brock Service: Nursing Author Type: Registered Nurse Type: Nursing Progress Note Filed: 12/02/2017 10:11 AM Note Text: Nursing Progress Note Patient Name: Maxx Knott Patient Location: [facility] [place]0317/[id number] Daily Note: pt observed asleep in bed. Respers even and unlabored. Will continue to monitor. This note was completed by: Niki Brock, RN 0853- pt awake, c/o pain at stoma site, prn administered for pain. See physical assessment. Stoma beefy red, moist. Pt states he does his own stoma care. Will continue to monitor. 1008- pt denies assistance to clean up this AM. Will continue to monitor. CBC Collected: 12/02/2017 Status: F Source: [place] 3:14 AM CLINIC OTHER CAMPUS REPOSITORY TYPE [...] 11.1 Performed By: #### CBC, BMP #### [facility] [address] [facility] [address] [phone] BASIC METABOLIC PANL Collected: 12/02/2017 Status: F Source: [place] 3:14 AM [facility] OTHER CAMPUS REPOSITORY TYPE CODE TESTS RESULT [...] GFR. Performed By: #### CBC, BMP #### [facility] [address] [facility] [address] [phone] CNCO Observed: 12/02/2017 Status: COMPLETED Source: [place] 12:00 AM CLINIC OTHER CAMPUS REPOSITORY Letter Text December 02, 2017 Maxx Knott [address] [facility] [address] Dear Mr. Knott, The nurses and staff of [facility] hope this letter finds you feeling well [...] free to contact me, Raissa Márquez RN ([phone]) or email me at, [email or web address] Additionally, you will receive a survey [...] participation and thank you for choosing the [facility] for your health needs. Sincerely, Nurse Internet Sales Representative: Raissa Márquez RN ([phone]) [facility] Unit: 3 Observation NURSING PROG Observed: 12/01/2017 Status: COMPLETED Source: [place] 9:23 PM CLINIC OTHER CAMPUS REPOSITORY HNO ID: [id number] Author: Bree (Rn) MITCHELL Johnson Service: (none) Author Type: Registered Nurse Type: Nursing Progress Note Filed: 12/02/2017 5:27 AM Note Text: Nursing Progress Note Patient Name: Maxx Knott Patient Location: [place] [id number] Daily Note: 1930: Assumed care of patient [...] THERAPY NT Observed: 12/01/2017 Status: COMPLETED Source: [place] 4:35 PM [facility] REPOSITORY HNO ID: [id number] Author: Vandana Rodriguez Service: Physical Therapy Author Type: Physical Therapist Type: Therapy (PT/OT/Speech/Resp) Filed: 12/01/2017 4:51 PM Note Text: PHYSICAL THERAPY MISSED VISIT SERVICE DATE: 12/01/2017 SERVICE TIME: 1635 to 1635 ROOM: [place] [address] Attempted Evaluation. Patient not seen due to [...] NURSING PROG Observed: 12/01/2017 Status: COMPLETED Source: [place] 3:58 PM [facility] REPOSITORY HNO ID: [id number] Author: Michell KingRn) MITCHELL Vigil Service: (none) Author Type: Registered Nurse Type: Nursing Progress Note Filed: 12/01/2017 5:30 PM Note Text: Nursing Progress Note Patient Name: Maxx Knott [id number] Daily Note: 1515 RN assumed care of patient, patient resting in bed, denies pain, CPaP because he was napping, assessment complete, see NPR. Edema noted to bilat lower legs. 1700 Patient sleeping in bed, no signs of distress. This note was completed by: Michell Vigil RN PROGRESS Observed: 12/01/2017 Status: COMPLETED Source: [place] 1:24 PM CLINIC OTHER CAMPUS REPOSITORY HNO ID: [id number] Author: Rosie Verdin) Brian Service: Hospital Medicine Author Type: Nurse Practitioner Type: Progress Notes Filed: 12/01/2017 1:39 PM Note Text: DEPARTMENT OF HOSPITAL MEDICINE PROGRESS NOTE SERVICE DATE: 12/01/2017 SERVICE TIME: 1:24pm Primary Care Physician: Bijan Perez MD NIGHT AND WEEKEND COVERAGE: Nights: Please contact pager [phone]. Subjective INTERVAL HPI: Less short of breath today Lower extremity swelling improved Complains of generalized weakness Still has mild intermittent chest discomfort MEDICATIONS: Reviewed ALLERGIES Allergen Reactions - Altaseptic Unknown - Brilinta [Ticagrelo* Unknown - Crestor [Rosuvastat* Myalgia - Hctz [Amiloride-Hyd* Swelling - Moxifloxacin Swelling - Other Lake-3s Unknown brelinta - Ramipril Swelling Other reaction(s): [...] shortness of breath and lightheadedness Had [facility] January 2017 with mild non obstructive [...] 01, 2017 TIME: 1:38 PM PAGER/CONTACT #: [phone] EKG Observed: 12/01/2017 Status: F Source: [place] 8:23 AM [facility] REPOSITORY NAME : MAXX KNOTT PID : [id number] : 1950 Gender : Male Race : ORD : [id number] Procedure Date : Dec 01 2017 08:23:24 [...] ms QTC Calculation(Bezet) : 508 ms P Powderhorn : -19 degrees R Powderhorn : 56 degrees T Powderhorn : -78 degrees Test Reason : Chest Pain Location : 3 : 2N 317-2 Overread By : Shae DELUNA Edited By : Shae DELUNA Referred By : HARRY Acquired by : MARTHA LUNA PROG Observed: 12/01/2017 Status: COMPLETED Source: [place] 8:16 AM [facility] OTHER [place] REPOSITORY HNO ID: [id number] Author: Dian (Rn) MITCHELL Youssef Service: (none) Author Type: Registered Nurse Type: Nursing Progress Note Filed: 12/01/2017 1:28 PM Note Text: Nursing Progress Note Patient Name: Maxx Knott Patient [place] [facility] [place]17/LQ-[id number] Daily Note: 0700: Patient resting in bed [...] RN CBC Collected: 12/01/2017 Status: F Source: [place] 3:09 AM CLINIC OTHER CAMPUS REPOSITORY TYPE [...] MPV 11.0 Performed By: #### CBC #### [facility] [address] [facility] [phone] BASIC METABOLIC PANL Collected: 12/01/2017 Status: F Source: [place] 3:09 AM CLINIC OTHER CAMPUS REPOSITORY TYPE [...] GFR. Performed By: #### BMP, MG1 #### [facility] [address] [facility] [phone] MAGNESIUM Collected: 12/01/2017 Status: F Source: [place] 3:09 AM CLINIC OTHER CAMPUS REPOSITORY TYPE CODE TESTS RESULT OUT OF REFERENCE UNITS RANGE LAB MG 1.7-2.3 mg/dL Magnesium 2.0 Performed By: #### BMP, MG1 #### [facility] [address] [facility] [phone] NT PRO BNP Collected: 12/01/2017 Status: F Source: [place] 3:09 AM [facility] [place] REPOSITORY TYPE CODE TESTS RESULT OUT OF REFERENCE UNITS RANGE LAB PBNP <125 pg/mL High PRO B Natr 1301 Peptide Performed By: #### NTBNP #### [facility] [address] [facility] [phone] EKG Observed: 12/01/2017 Status: F Source: [place] 2:26 AM [facility] REPOSITORY NAME : MAXX KNOTT PID : [id number] : 1950 Gender : Male Race : ORD : [id number] Procedure Date : Dec 01 2017 02:26:14 Edit Date : Dec 03 2017 10:36:01 Diagnosis:AV dual-paced rhythm with prolonged AV conduction WITH OCCASIONAL PREMATURE VENTRICULAR COMPLEXES ABNORMAL ECG NO PREVIOUS ECGS AVAILABLE Confirmed by Shae DELUNA ([id number]) on 12/03/2017 10:35:55 AM Ventricular Rate : 67 BPM Atrial Rate : 67 BPM P-R Interval : 236 ms QRS Duration : 126 ms Q-T Interval : 464 ms QTC Calculation(Bezet) : 490 ms P Powderhorn : -25 degrees R Powderhorn : 77 degrees T Powderhorn : -43 degrees Test Reason : Chest Pain Location : 3 : 2N 317-2 Overread By : Shae DELUNA Edited By : Shae DELUNA Referred By : HARRY Acquired by : JEREMY TROPONIN T Collected: 11/30/2017 Status: F Source: [place] 9:01 PM CLINIC OTHER CAMPUS REPOSITORY TYPE CODE TESTS RESULT OUT OF REFERENCE UNITS RANGE LAB TROPT 0.000-0.029 ng/mL Troponin T <0.010 Performed By: #### BRAYAN #### [facility] [address] [facility] [phone] NURSING PROG Observed: 11/30/2017 Status: COMPLETED Source: [place] 7:00 PM [facility]AMP[facility] REPOSITORY HNO ID: [id number] Author: Bernadette (Rn) MITCHELL Butterfield Service: (none) Author Type: Registered Nurse Type: Nursing Progress Note Filed: 12/01/2017 5:23 AM Note Text: Nursing Progress Note Patient Name: Maxx Knott Patient Location: [facility] [place]-0317/BZ-[id number]-7883-2 1900-Assumed care of patient. Patient sitting up [...] Unchanged from previous. 0350- Spoke to Dr. Harry herbert labs and EKG. No new orders at this time. Patient is stable. If PVCs continue into the day a cariology consult may need to be considered. 0500- patient resting in bed. cpap on. Tele continues to be paced with PVCs. No s/s of distress. This note was completed by: Alexandra Butterfield RN CONSULT Observed: 11/30/2017 Status: COMPLETED Source: [place] 6:07 PM CLINIC OTHER CAMPUS REPOSITORY HNO ID: [id number] Author: Britney Waters Service: General Surgery Author Type: Physician Type: Consults Filed: 11/30/2017 6:09 PM Note Text: Consult dictated. Prolapsing transverse colostomy - reduced. No evidence for surgical abdomen. Instructed patient on self-reduction if recurs. Please call if needed. TROPONIN T Collected: 11/30/2017 Status: F Source: [place] 5:17 PM CLINIC OTHER CAMPUS REPOSITORY TYPE CODE TESTS RESULT OUT OF REFERENCE UNITS RANGE LAB TROPT 0.000-0.029 ng/mL Troponin T <0.010 Performed By: #### BRAYAN #### [facility] [address] [facility] [address] [phone] NURSING PROG Observed: 11/30/2017 Status: COMPLETED Source: [place] 2:25 PM CLINIC OTHER CAMPUS REPOSITORY HNO ID: [id number] Author: Sumanth (Rn) MITCHELL Craven Service: (none) Author Type: Registered Nurse Type: Nursing Progress Note Filed: 11/30/2017 6:11 PM Note Text: Nursing Progress Note Patient Name: Maxx Knott Patient Location: [place] 331477/RN-9S-6513-2 Daily Note: Received patient from [facility] ED-AANDOx3, VSS. C/O stomal pain-ROUTING MACHINE OPERATOR aware. Telemetry placed-RPR w/PVCs. RLQ stoma draining brown liquid stool with noted prolapsed bowel. Patient had prolapsed bowel reduced in ED @ [facility] prior arrival. HL patent AND flushed with + bld-return. 1-2+ BLE edema. Up with 1-assist due to recent fall @ home. Voided pale-yl urine per urinal. Occas dry no-prod cough. Denies any SOB, LS-dim t/o. ROUTING MACHINE OPERATOR @ bedside 1620-Resting in bed, [...] HISTORY PHYSICAL Observed: 11/30/2017 Status: COMPLETED Source: [place] 2:10 PM CLINIC OTHER CAMPUS REPOSITORY HNO ID: [id number] Author: Rosie Verdin) Brian Service: Hospital Medicine Author Type: Nurse Practitioner Type: HANDP Filed: 11/30/2017 4:10 PM Note Text: DEPARTMENT OF HOSPITAL MEDICINE HISTORY AND PHYSICAL EXAM SERVICE DATE: 11/30/2017 SERVICE TIME: 2:10pm Primary Care Physician: Bijan Perez MD NIGHT AND WEEKEND COVERAGE: Nights: Please contact pager [phone]. Subjective CHIEF COMPLAINT: Chest pain and intestinal [...] normal stress test 07/30/2017 He presented to [facility] [place] ER and the pain did subside after [...] artery disease) 2006 CAD s/p CABG x3 (LEUT-JQC-dgumhu, SOM-KZN-rkzuzl, BRP-KA1-qoeflejn) (2006 at DC) - COPD (chronic obstructive pulmonary disease) (HCC) - Current every day smoker PT SMOKES A PIPE - Diverticulitis Perforated Diverticulitis - Diverticulitis of sigmoid colon 05/15/2017 Added automatically from request for surgery [id number] - Hx of CABG - Pacemaker 02/16/2017 [...] (FLONASE) 50 mcg/actuation nasal spray Use 1 Vulcan in the nose once daily as needed. [...] [Amiloride-Hyd* Swelling - Moxifloxacin Swelling - Other Lake-3s Unknown brelinta - Ramipril Swelling Other reaction(s): [...] shortness of breath and lightheadedness Had [facility] January 2017 with mild non obstructive [...] hospitalizations and ER visits Stoma reduced at [facility] prior to admission but is again prolapsed [...] 30, 2017 TIME: 2:10 PM PAGER/CONTACT #: [phone] ED NOTE Observed: 11/30/2017 Status: COMPLETED Source: [place] 12:45 PM [facility] REPOSITORY HNO ID: [id number] Author: Radha KingRn) MITCHELL Patiño Service: Emergency Medicine Author Type: Registered Nurse Type: ED Notes Filed: 11/30/2017 12:46 PM Note Text: Juan Pablo rico here to kaiako kura kaupapa maori pt for transport to [facility]. [facility] Observed: 11/30/2017 Status: COMPLETED Source: [place] 12:20 PM [facility] REPOSITORY HNO ID: [id number] Author: Stephanie KingRn) MITCHELL Obregon Service: Wound/Ostomy [...] Scheduled Visit: Patient to be admitted to [facility] as no beds available here. Time: 1 hour 15 minutes MAIA Gustafson, RN, CWOCN M-F 8am-4pm Weekends/Holidays 8am-3pm Pager #[phone] ED NOTE Observed: 11/30/2017 Status: COMPLETED Source: [place] 11:46 AM [facility] REPOSITORY HNO ID: [id number] Author: Radha Patiño RN Service: Emergency Medicine Author Type: Registered Nurse Type: ED Notes Filed: 11/30/2017 11:46 AM Note Text: Report called to [facility], report to Sumanth GONZALEZ pt going to 317-02. ED NOTE Observed: 11/30/2017 Status: COMPLETED Source: [place] 9:59 AM [facility] REPOSITORY HNO ID: [id number] Author: Radha KingRn) MITCHELL Patiño Service: Emergency Medicine Author Type: Registered Nurse Type: ED Notes Filed: 11/30/2017 9:59 AM Note Text: Colorectal at bedside and was able to reduce pts stoma, pt tolerated well. CONSULT PROG Observed: 11/30/2017 Status: COMPLETED Source: [place] 9:57 AM [facility] REPOSITORY HNO ID: [id number] Author: Ratna Grossman (Fel) Service: Colorectal Author Type: Fellow Type: [...] (abdominal aortic aneurysm) without rupture ([facility]) 05/13/[address] a/p - CAD (coronary artery disease) 2005 CAD s/p CABG x3 (BGXW-DTJ-qroiph, EOV-YUT-krzyug, PKQ-DV1-csrcipyn) (2006 at DC) - COPD (chronic obstructive pulmonary disease) ([facility]) - Current every day smoker PT SMOKES A PIPE - Diverticulitis Perforated Diverticulitis - Diverticulitis of sigmoid colon 05/15/2017 Added automatically from request for surgery [id number] - Hx of CABG - Pacemaker 02/16/2017 s/p PPM () 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 [...] [Amiloride-Hyd* Swelling - Moxifloxacin Swelling - Other Lake-3s Unknown brelinta - Ramipril Swelling Other reaction(s): [...] ED NOTE Observed: 11/30/2017 Status: COMPLETED Source: [place] 9:40 AM [facility] REPOSITORY HNO ID: [id number] Author: Radha (Rn) MITCHELL Patiño Service: Emergency Medicine Author Type: Registered Nurse Type: ED Notes Filed: 11/30/2017 9:40 AM Note Text: Colorectal at bedside. meds given per orders. EKG1 Observed: 11/30/2017 Status: F Source: [place] 9:39 AM [facility] [place] REPOSITORY NAME : MAXX KNOTT PID : [id number] : 1950 Gender : Male Race : [...] Confirmed by OVERREAD REPORT, NOT AN (1), news assignment editor VICTOR HUGO LEDESMA ([id number]) on 12/14/2017 8:26:27 AM Ventricular Rate : 64 BPM Atrial Rate : 64 BPM P-R Interval : 218 ms QRS Duration : 106 ms Q-T Interval : 430 ms QTC Calculation(Bezet) : 443 ms P Powderhorn : 38 degrees R Powderhorn : 38 degrees T Powderhorn : 39 degrees Test Reason : Location : 2 : EDNS Overread By : OVERREAD REPORT,NOT AN Edited By : VICTOR HUGO LEDESMA Referred By : , Acquired by : , PROGRESS Observed: 11/30/2017 Status: COMPLETED Source: [place] 9:32 AM [facility] REPOSITORY HNO ID: [id number] Author: Mikki ([place] Service: (none) Author Type: Media Account Executive Type: Progress Notes Filed: 11/30/2017 9:32 AM [...] ABD SERIES Observed: 11/30/2017 Status: F Source: [place] 2V ABD+CXR 9:30 AM [facility] REPOSITORY * * *Final Report* * * [...] radiographic evidence of an acute abdominal process. Geriatric Physical Therapist: MAGI Transcribe Date/Time: Nov 30 2017 9:45A Dictated by : CRISTI BENITO MD This examination was interpreted and the report reviewed and electronically signed by: CHRISTIAN CLOUD MD on Nov 30 2017 12:08PM EST [id number] ED NOTE Observed: 11/30/2017 Status: COMPLETED Source: [place] 9:00 AM [facility] REPOSITORY HNO ID: [id number] Author: Charli (Kurtis Gonzales Service: Emergency Medicine Author Type: Assistant Infant Teacher and Media Account Executive Type: ED Notes Filed: 11/30/2017 9:05 AM Note Text: Labs including Lactic acid drawn and sent CBC AND DIFFERENTIAL Collected: 11/30/2017 Status: F Source: [place] 9:00 AM [facility] REPOSITORY TYPE CODE TESTS RESULT [...] k/uL Abs Lymph 1.19 LAB AMONO % Wirt% 6.8 LAB AAMONO <0.87 k/uL Abs Wirt 0.56 LAB AEOS % Eosin% 1.7 LAB AAEOS <0.46 k/uL Abs Eosin 0.14 LAB ABASO % Baso% 0.2 LAB AABASO <0.11 k/uL Abs Baso <0.03 LAB AUNRBC 0 /100 WBC NRBCs 0.0 LAB ABNRBC <0.01 k/uL Absolute nRBC <0.01 LAB DTYP DTYPE Auto Diff Performed By: #### CBCDIF, CKCKMB, CMP, LIPA, MG1, NTBNP, BRAYAN #### [facility] [employer] [address], [place] [address] CK, TOTAL AND CKMB Collected: 11/30/2017 Status: F Source: [place] 9:00 [facility] REPOSITORY TYPE CODE TESTS RESULT OUT [...] CKCKMB, CMP, LIPA, MG1, NTBNP, BRAYAN #### [facility] [employer] [address], [place] [address] COMP METABOLIC PANEL Collected: 11/30/2017 Status: F Source: [place] 9:00 AM [facility] REPOSITORY TYPE CODE TESTS RESULT [...] CKCKMB, CMP, LIPA, MG1, NTBNP, BRAYAN #### [facility] [address] [place] [address] LIPASE Collected: 11/30/2017 Status: F Source: [place] 9:00 [facility] REPOSITORY TYPE CODE TESTS RESULT OUT OF REFERENCE UNITS RANGE LAB LIPA 16-61 U/L Low Lipase 14 Performed By: #### CBCDIF, CKCKMB, CMP, LIPA, MG1, NTBNP, BRAYAN #### [place] [address] MAGNESIUM Collected: 11/30/2017 Status: F Source: [place] 9:00 [facility] REPOSITORY TYPE CODE TESTS RESULT OUT OF REFERENCE UNITS RANGE LAB MG 1.7-2.3 mg/dL Magnesium 1.9 Performed By: #### CBCDIF, CKCKMB, CMP, LIPA, MG1, NTBNP, BRAYAN #### [place] [address] NT PRO BNP Collected: 11/30/2017 Status: F Source: [place] 9:00 [facility] REPOSITORY TYPE CODE TESTS RESULT OUT OF REFERENCE UNITS RANGE LAB PBNP <125 pg/mL High PRO B Natr 1426 Peptide Performed By: #### CBCDIF, CKCKMB, CMP, LIPA, MG1, NTBNP, BRAYAN #### [place] [id number] TROPONIN T Collected: 11/30/2017 Status: F Source: [place] 9:00 [facility] REPOSITORY TYPE CODE TESTS RESULT OUT OF REFERENCE UNITS RANGE LAB TROPT 0.000-0.029 ng/mL Troponin T <0.010 Performed By: #### CBCDIF, CKCKMB, CMP, LIPA, MG1, NTBNP, BRAYAN #### [place] [address] ED PROV NOTE Observed: 11/30/2017 Status: COMPLETED Source: [place] 8:58 AM [facility] REPOSITORY HNO ID: [id number] Author: Beata Rocha MD Service: Emergency Medicine [...] episode of intestinal prolapse 11/26/17 seen at [place] ED, ice pack applied, given analgesia and stoma reduced with patient d/c home with abdominal binder. History provided by: Patient and medical records PAST MEDICAL HISTORY Diagnosis Date - AAA (abdominal aortic aneurysm) without rupture ([facility]) 05/13/[address] a/p - CAD (coronary artery disease) 2005 CAD s/p CABG x3 (PJJS-MYS-zpufuq, EPK-KQF-pofifj, JBM-OE2-mwmdnavm) (2006 at DC) - COPD (chronic obstructive pulmonary disease) ([facility]) - Current every day smoker PT SMOKES A PIPE - Diverticulitis Perforated Diverticulitis - Diverticulitis of sigmoid colon 05/15/2017 Added automatically from request for surgery [id number] - Hx of CABG - Pacemaker 02/16/2017 s/p PPM () 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 A consult was requested and obtained from field service consultant(s) Colorectal Surgery. The field service consultant made the following conclusions/recommendations: see MDM. Medical Decision Making: Intestinal prolapse: seen by CORIfeoma, successfully reduced; needs to f/u with Dr [...] lasix Plan: The patient was transferred to [place] for diuresis, trending of enzymes, accepted by [...] ED NOTE Observed: 11/30/2017 Status: COMPLETED Source: [place] 8:28 AM [facility] REPOSITORY HNO ID: [id number] Author: Kyara Cervantes (Rn) MITCHELL Nance Service: Emergency Medicine Author Type: Registered Nurse Type: ED Notes Filed: 11/30/2017 8:29 AM Note Text: Pt c/o pain at colostomy site and states its protruding more than usual since this am. Pt is having decreased output as well. CONSULT Observed: 11/30/2017 Status: COMPLETED Source: [place] 12:00 AM [facility] REPOSITORY HNO ID: [id number] Author: Britney Waters Service: General Surgery Author Type: Physician Type: Consults Filed: 12/01/2017 8:47 AM Note Text: [facility]- Consultation NIKOSMAXX : 1950 AGE: 67 SEX: M ACCTNUM: [id number] [facility]: [facility] LOCATION: [facility] ATTENDING PHYSICIAN: MANISH OTT DATE OF CONSULTATION: 11/30/2017 HISTORY: The patient is a 67-year-old gentleman with a history of transverse colostomy. This was placed in 06/2016 per the patient. He presented with diverticulitis at that time. This was unable to be resected. Therefore, a diverting colostomy was performed. He has been seeing Dr. Yoo at [facility] from Colorectal Surgery to discuss reversal. The patient presented to the ER at [facility] today with recurrent chest pain. They did not have beds available for observation and he was transferred to [facility]. While he was in the ER, it [...] for reversal in the near future at [facility]. Again, there is no evidence for an acute abdomen requiring urgent surgical intervention. Please call if needed during this hospital stay. Britney Waters M.D. General Surgery KED:[id number] /[id number] EMERGENCY DEPARTMENT Observed: 11/28/2017 Status: F Source: [place] SUMMARY 11:34 PM [facility] REPOSITORY [facility] Medical Records Department [address] [facility] [place] [address] Emergency Department Summary 11/28/17 2304 MR#: [id number] Acct: [id number] Name: MAXX KNOTT Shekhar Rep #: [id number] : 1950 67 From: Chele Smith MD PCP: [place], [place] Status: DEP ER - ER Visit Summary Date of Service: 11/28/17 Chief Complaint: Herniated bowel into colostomy History of Present Illness: The patient is a 67 M prior colostomy secondary to diverticulitis. Also prior history of FL, CAD, triple bypass and cardiac stents. Patient [...] to home. Treatment Plan: Follow-up with the DC. 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 It may contain incorrect words, spelling, and punctuation that were not noted in review of the chart prior to signing ED Disposition - Plan for ED Patient: Chief Complaint: Shortness of Breath Referrals: [facility] [Primary Care Provider] - What to do if you have Problems For any increased pain, shortness of breath, bleeding, nausea or vomiting, chest pain, or any unexpected problems, contact your Primary Care Provider. Call [facility] ([phone]) or report to the closest Emergency Room. Call 911 if necessary. 11/28/17 5349 <Electronically signed by Chele Smith MD> Date Chele Smith MD Cosigner Signature (If Indicated): Date CC: [facility] Hospital DISCHARGE INSTRUCTION Observed: 11/28/2017 Status: F Source: [place] 11:34 PM [facility] REPOSITORY [facility] Medical Records Department [address] [place] [address] Discharge Instruction 11/28/17 6337 MR#: [id number] Acct: [id number] Name: MAXX KNOTT Rep #: [id number] : 1950 67 From: Chele Simth MD PCP: [facility] [place] Status: DEP ER ED Disposition - Plan for ED Patient: Disposition: Home or Assisted Living Chief Complaint: Shortness of Breath Referrals: [facility] [Primary Care Provider] - As Needed Additional Instructions: Follow-up with the DC for your colostomy revision. What to do if you have Problems For any increased pain, shortness of breath, bleeding, nausea or vomiting, chest pain, or any unexpected problems, contact your Primary Care Provider. Call [facility] ([phone]) or report to the closest Emergency Room. Call 911 if necessary. 11/28/17 0464 <Electronically signed by Chele Smith MD> Date Chele Smith MD Cosigner Signature (If Indicated): Date CC: [facility] DISCH.SUM Observed: 11/27/2017 Status: UNK Source: [facility] 5:41 PM CENTER [facility] Patient Name: MAXX KNOTT Patentspin Date of : [address] [address] Unit Number: [id number] Discharge Summary Patient Status: DIS Maggi Attending Doctor: Sarah Mauro MD Service Date: [...] Cardiology Referral In One-Two W... For Groups: [facility] [address] [place] [address] Primary Care Provide In Two-Three... For Providers: Aisha Arias MD [address] [place] [address] Condition: Stable Disposition Home Phys Discharge Time Incur(Min) 32 Disclaimer This dictation was created using voice recognition software. Phonetic and/or minor grammatical errors may exist. eSign Date and Time Sarah Mauro MD Verified/Reviewed by 11/29/17 0902 ED DOC Observed: 11/26/2017 Status: UNK Source: [facility] 5:24 PM [facility] This is a preliminary report only, as the practitioner review and authentication has not occurred. ED DOC Observed: 11/26/2017 Status: UNK Source: [facility] 5:24 PM [facility] REPOSITORY PHYSICIAN ASSESSMENT RECORDS : Discharge Report Event Time: 11/26/2017 16:28 : FlexChartData Event Time: 11/26/2017 17:00 Status: Signed [facility] Maxx Knott [[id number]] Attending Physician 67 / M / 1950 Chart (V2b) Chart created at 11/26/2017 16:17 by Maxim Hendrix Chart closed at 11/26/2017 16:27 Entry in Emergency Department at 11/26/2017 14:51 Patient Name: Maxx Knott Record Number: [id number] Date: 11/26/2017 16:17 Entered Department at: 11/26/2017 14:51 Patient Seen at: 11/26/2017 15:48 Historian: Patient PCP: [facility] Chief Complaint:PROLAPSE OF COLOSTOMY - STATES HE [...] emergency department. Patient is following with the [facility] PATIENT NAME: MAXX KNOTT [address] [place] MEDICAL REC #: [id number] [place] [address] EMERGENCY DEPARTMENT CHART EMERGENCY DEPARTMENT PHYSICIAN [facility] for this, is scheduled to have surgery [...] had 57 opiate prescriptions from 48 different [facility] PATIENT NAME: MAXX KNOTT [address] [place] MEDICAL REC #: [id number] [place] [address] EMERGENCY DEPARTMENT CHART EMERGENCY DEPARTMENT PHYSICIAN providers [...] things. Patient will continue to follow with [facility] regarding his colostomy. I did inform him [...] Draft Reasons to Return to the ER: [facility] PATIENT NAME: MAXX KNOTT [address] [place] MEDICAL REC #: [id number] [place] [address] EMERGENCY DEPARTMENT CHART EMERGENCY DEPARTMENT PHYSICIAN You [...] prescriptions filled. EKG and Radiology Results: A communication specialist or radiologist will review any EKG or [...] are aware and can make suggestions DIAGNOSIS: [facility] PATIENT NAME: MAXX KNOTT [address] [place] MEDICAL REC #: [id number] [place] [address] EMERGENCY DEPARTMENT CHART EMERGENCY DEPARTMENT PHYSICIAN Acute bowel prolapse from colostomy, manually reduced, Acute drug-seeking behavior INSTRUCTIONS: Continue following with [facility] as well as your primary care provider [...] as indicated by these instructions and referrals. [facility] [place] MEDICAL REC #: [id number] [place] [address] EMERGENCY DEPARTMENT CHART EMERGENCY DEPARTMENT PHYSICIAN This signed original will be kept in my medical record. Your signature below indicates consent for Case Management to contact [facility] providers in an effort to meet your ongoing healthcare needs. This will allow forcontinuity of care once you leave the Emergency Department. This exchange of informationwill include, but not be limited to, disclosure of your patient information and possible release of records. : FlexChartData Event Time: 11/26/2017 17:00 DEMOGRAPHICS Emergisoft Patient: MAXX KNOTT Sex: M : 1950 Age: 67 yr Account No: [id number] Registration Date: 14:51 11/26/2017 Address: [address] [place] [address] [address] Address: [place] [address] REGISTRATION ED Number: [id number] Marital Status: D Financial Class: MPPS TRIAGE Priority: 3 - Urgent Complaint: Abdominal Pain Stated Complaint: PROLAPSE OF COLOSTOMY - STATES HE WAS SEEN LAST WEEK FOR THE SAME. WAS REDUCED AND DISCHARGED. Arrival Date: 11/26/2017 14:51 Triage Date: 11/26/2017 15:10 Mode of Arrival: *Privately Owned Vehicle Transfer From: * Home WC: N Language: Guamanian Transport: Ambulatory/Walk In [facility] PATIENT NAME: MAXX KNOTT [address] [place] MEDICAL REC #: [id number] [place] [address] EMERGENCY DEPARTMENT CHART EMERGENCY DEPARTMENT PHYSICIAN BED [...] VOLTAREN - Get Sick 11/26/2017 15:12 VDP [facility] PATIENT NAME: MAXX KNOTT [address] [place] MEDICAL REC #: [id number] [place] [address] EMERGENCY DEPARTMENT CHART EMERGENCY DEPARTMENT PHYSICIAN Allergic [...] VDP Social History: Denies Domestic Violence 11/26/2017 [facility] PATIENT NAME: MAXX KNOTT [address] [place] MEDICAL REC #: [id number] [place] [address] EMERGENCY DEPARTMENT CHART EMERGENCY DEPARTMENT PHYSICIAN 15:12 [...] light placed within reach. 11/26/2017 17:24 MCS [facility] PATIENT NAME: MAXX KNOTT [address] [place] MEDICAL REC #: [id number] [place] [address] EMERGENCY DEPARTMENT CHART EMERGENCY DEPARTMENT PHYSICIAN 11/26/2017 16:00 Staff/ Patient Interaction - Call light placed within reach. 11/26/2017 17:24 MCS 11/26/2017 16:25 Primary DOC Guide - A. Patient History 11/26/2017 17:24 MCS Primary History Source Patient Fabricio Exposure - [...] Fall Risk Assessment (Age andlt;65) 11/26/2017 17:24 MCS History of Falling in last 3 months? [...] weeks, how often have you been feeling [facility] PATIENT NAME: MAXX KNOTT [address] [place] MEDICAL REC #: [id number] [place] [address] EMERGENCY DEPARTMENT CHART EMERGENCY DEPARTMENT PHYSICIAN down, [...] - Sitting - Machine Pulse: 74 - Child Care Resp: 16 Sa02: 97 Room Air 11/26/2017 [...] 11/26/2017 16:42 map 89 11/26/2017 17:21 MCS [facility] PATIENT NAME: MAXX KNOTT Shekhar Joshua0 [facility] [place] MEDICAL REC #: [id number] [place] [address] EMERGENCY DEPARTMENT CHART EMERGENCY DEPARTMENT PHYSICIAN ORDERS [...] Physician: . Other PRESCRIPTIONS CHARGES SIGNATURE CADEN RAMIREZ RN VDP Maxim Hendrix DO EDS HUE DAVIS RN MCS [facility] PATIENT NAME: NIKOSMARILUZYanelis Corrigan Kma [facility] [place] MEDICAL REC #: [id number] [place] [address] EMERGENCY DEPARTMENT CHART EMERGENCY DEPARTMENT PHYSICIAN DISCHARGE INSTRUCTION Observed: 11/23/2017 Status: F Source: [place] 11:17 AM [facility] REPOSITORY [facility] Medical Records Department [address] [facility] [place] [address] Discharge Instruction 11/23/17 1116 MR#: [id number] Acct: [id number] Name: MAXX KNOTT Rep #: [id number] : 1950 67 From: Naomie Koenig PCP: [place], [place] Status: REG ER ED Disposition - Plan for ED Patient: Chief Complaint: Other, Pain/Inj Instructions: What Is a Hernia? Referrals: Yusef Morales [Other] - 2 Days What to do if you have Problems For any increased pain, shortness of breath, bleeding, nausea or vomiting, chest pain, or any unexpected problems, contact your Primary Care Provider. Call [facility] ([phone]) or report to the closest Emergency Room. Call 911 if necessary. 11/23/17 1117 <Electronically signed by Naomie Koenig > Date Naomie Koenig Cosigner Signature (If Indicated): Date CC: [facility] EMERGENCY DEPARTMENT Observed: 11/23/2017 Status: F Source: [place] SUMMARY 11:16 AM [facility] REPOSITORY [facility] Medical Records Department [address] [place] [address] Emergency Department Summary 11/23/17 1012 MR#: [id number] Acct: [id number] Name: MAXX KNOTT Rep #: [id number] : 1950 67 From: Naomie Koenig PCP: [place], [place] Status: REG ER - ER Visit [...] was told he has to follow-up in [place] to get a reversal. He has followed [...] His surgeon is a Dr. Holbrook in [facility]. Ostomy was placed for ruptured diverticulitis. This [...] ER reduction] This note was generated with Ping Communication dictation software. It may contain incorrect words, spelling, and punctuation that were not noted in review of the chart prior to signing ED Disposition - Plan for ED Patient: Chief Complaint: Other, Pain/Inj [facility]errals[facility] [Primary Care Provider] - What to do if you have Problems For any increased pain, shortness of breath, bleeding, nausea or vomiting, chest pain, or any unexpected problems, contact your Primary Care Provider. Call [facility] ([phone]) or report to the closest Emergency Room. Call 911 if necessary. 11/23/17 1116 <Electronically signed by Naomie Koenig > Date Naomie Liberty Kiser Signature (If Indicated): Date CC: [facility] Hospital PROGRESS Observed: 11/23/2017 Status: COMPLETED Source: [place] 8:56 AM [facility] REPOSITORY HNO ID: [id number] Author: Eligio (Rn) MITCHELL Banks Service: (none) Author Type: Registered Nurse Type: Progress Notes Filed: 11/23/2017 8:59 AM Note Text: Unable to reach patient at this time, left VM to return call to the office. Eligio Banks RN CNPTOUTREACH Observed: 11/23/2017 Status: COMPLETED Source: [place] 12:00 AM [facility] REPOSITORY Patient Outreach (INTMMN) MAXX KNOTT ([id number]) 1950 M Date Time Provider Department 11/23/17 [...] Zaidi - Fully Assessed Reason for Visit: Employment Assistant Ed Follow Up [3611] Prescriptions as of 11/23/2017 Sig: ONDANSETRON HCL [...] * FLUTICASONE 50 MCG/ACTUATION * Use 1 Vulcan in the nose once * NITROGLYCERIN 0.4 [...] ED DOC Observed: 11/22/2017 Status: UNK Source: [facility] 3:35 PM [facility] REPOSITORY This is a preliminary report only, as the practitioner review and authentication has not occurred. ED DOC Observed: 11/22/2017 Status: UNK Source: [facility] 3:35 PM [facility] REPOSITORY PHYSICIAN ASSESSMENT RECORDS : Discharge Report Event Time: 11/22/2017 15:08 : FlexChartData Event Time: 11/22/2017 15:40 Status: Signed [facility] Maxx Knott [[id number]] Attending Physician 67 / M / 1950 Chart (V2b) Chart created at 11/22/2017 15:03 by Lee Samuels Chart closed at 11/22/2017 15:07 Entry in Emergency Department at 11/22/2017 13:07, departure at 11/22/2017 15:35 Patient Name: Maxx Knott Record Number: [id number] Date: 11/22/2017 15:03 Entered Department at: 11/22/2017 13:07 Patient Seen at: 11/22/2017 13:43 Historian: Patient PCP: [facility] - PCP / DR PARDO - SURGEON Chief Complaint:PATIENT REPORTS PROLAPSE OF COLOSTOMY APPROX ONE HOUR AGO. Temperature: 98.2 F (36.8 C). Pulse: 100. Respiratory Rate: 15. Blood-pressure: 194/81. Oxygen Saturation: 97%. History of Present Illness: 67-Year-old male comes in for evaluation of prolapse of his colostomy. This is been a long-standing problem for him. He apparently has been referred to the [facility] for operative repair, but states he cannot have a procedure done for another month. He states that he has been having problems with a stoma prolapsing further and further. Is still functioning [facility] PATIENT NAME: MAXX KNOTT [address] [place] MEDICAL REC #: [id number] [place] [address] EMERGENCY DEPARTMENT CHART EMERGENCY DEPARTMENT PHYSICIAN and [...] does not require emergent repair. His prolapse [facility] PATIENT NAME: MAXX KNOTT [address] [place] MEDICAL REC #: [id number] [place] [address] EMERGENCY DEPARTMENT CHART EMERGENCY DEPARTMENT PHYSICIAN is [...] Please follow all your discharge instructions. Medications: [facility] PATIENT NAME: MAXX KNOTT [address] [place] MEDICAL REC #: [id number] [place] [address] EMERGENCY DEPARTMENT CHART EMERGENCY DEPARTMENT PHYSICIAN Unless [...] prescriptions filled. EKG and Radiology Results: A communication specialist or radiologist will review any EKG or [...] longer come out through the colostomy. MEDICATIONS [facility] PATIENT NAME: MAXX KNOTT [address] [place] MEDICAL REC #: [id number] [place] [address] EMERGENCY DEPARTMENT CHART EMERGENCY DEPARTMENT PHYSICIAN We have given you these prescriptions that you must fill and start taking: Palisade 5 mg-325 mg tablet, count:8, Dose = [...] indicates consent for Case Management to contact [facility] in an effort to meet your ongoing healthcare needs. This will allow forcontinuity of care once you leave the Emergency Department. This exchange of informationwill include, but not be limited to, disclosure of your patient information and possible release of records. : [employer] Event Time: 11/22/2017 15:40 DEMOGRAPHICS Emergisoft Patient: MAXX KNOTT Sex: M : 1950 Age: 67 yr Account No: [id number] Registration Date: 13:07 11/22/2017 [facility] PATIENT NAME: MAXX KNOTT [address] [facility] [address] [place] MEDICAL REC #: [id number] [place] [address] EMERGENCY DEPARTMENT CHART EMERGENCY DEPARTMENT PHYSICIAN Address: [address] [place] [address] [address] Address: [place] [address] REGISTRATION ED Number: [id number] Marital Status: D Financial Class: FEDP TRIAGE Priority: 3 - Urgent Complaint: Abdominal Pain Stated Complaint: PATIENT REPORTS PROLAPSE OF COLOSTOMY APPROX ONE HOUR AGO. Arrival Date: 11/22/2017 13:07 Triage Date: 11/22/2017 13:27 Mode of Arrival: *Privately Owned Vehicle Transfer From: * Home WC: N Language: Guamanian Transport: Ambulatory/Walk In BED D44 In: 11/22/2017 13:30:53 11/22/2017 13:30:53 VDP D44 (Removed From) Out: 11/22/2017 13:33:12 11/22/2017 13:33:12 VDP D43 In: 11/22/2017 13:33:12 11/22/2017 13:33:12 VDP D43 (Removed From) Out: 11/22/2017 15:35:45 11/22/2017 15:35:45 BSF PROVIDERS MD Lee Samuels Provider Contact: 11/22/2017 13:42:12 GJJ End: [facility] PATIENT NAME: NIKOSMAXX B [address] [place] MEDICAL REC #: [id number] [place] [address] EMERGENCY DEPARTMENT CHART EMERGENCY DEPARTMENT PHYSICIAN MITCHELL [...] 13:29 VDP Illness: Diverticulitis 11/22/2017 13:29 VDP [facility] PATIENT NAME: MAXX KNOTT [address] [place] MEDICAL REC #: [id number] [place] [address] EMERGENCY DEPARTMENT CHART EMERGENCY DEPARTMENT PHYSICIAN PAST [...] has a colostomy and his bowel is [facility] PATIENT NAME: MAXX KNOTT [address] [place] MEDICAL REC #: [id number] [place] [address] EMERGENCY DEPARTMENT CHART EMERGENCY DEPARTMENT PHYSICIAN prolapsed [...] No (0) Intoxicated or Sedated? No (0) [facility] PATIENT NAME: MAXX KNOTT [address] [place] MEDICAL REC #: [id number] [place] [address] EMERGENCY DEPARTMENT CHART EMERGENCY DEPARTMENT PHYSICIAN Impaired [...] with steady gait home 11/22/2017 15:31 BSF [facility] PATIENT NAME: MAXX KNOTT [address] [place] MEDICAL REC #: [id number] [place] [address] EMERGENCY DEPARTMENT CHART EMERGENCY DEPARTMENT PHYSICIAN MEDICATIONS [...] 14:30 MAP 105 11/22/2017 14:30 BSF ORDERS [facility] PATIENT NAME: MAXX KNOTT [facility] [place] MEDICAL REC #: [id number] [place] [address] EMERGENCY DEPARTMENT CHART EMERGENCY DEPARTMENT PHYSICIAN Discharge [...] 11/22/2017 15:08 Admit Physician: . Other PRESCRIPTIONS Palisade 5 mg-325 mg tablet 11/22/2017 15:08 SI q6h severe pain for 2 days Dispense: 8 / Refills: CHARGES SIGNATURE Lee JACKSON RN BSF [facility] PATIENT NAME: MAXX KNOTT [address] MEDICAL REC #: [id number] [place] [address] EMERGENCY DEPARTMENT CHART EMERGENCY DEPARTMENT PHYSICIAN [facility] PATIENT NAME: [facility] [place] MEDICAL REC #: [id number] [place] [address] EMERGENCY DEPARTMENT CHART EMERGENCY DEPARTMENT PHYSICIAN ED DOC Observed: 11/20/2017 Status: UNK Source: [facility] 3:24 PM [facility] REPOSITORY This is a preliminary report only, as the practitioner review and authentication has not occurred. ED DOC Observed: 11/20/2017 Status: UNK Source: [facility] 3:24 PM [facility] REPOSITORY PHYSICIAN ASSESSMENT RECORDS : Discharge Report Event Time: 11/20/2017 14:49 : FlexChartData Event Time: 11/20/2017 15:20 Status: Signed [facility] Maxx Knott [[id number]] Attending Physician 67 / M / 1950 Chart (V2b) Chart created at 11/20/2017 14:45 by Ruperto Arndt Chart closed at 11/20/2017 14:48 Entry in Emergency Department at 11/20/2017 12:18 Patient Name: Maxx Knott Record Number: [id number] Date: 11/20/2017 14:45 Entered Department at: 11/20/2017 [...] He presents to the emergency department today [facility] PATIENT NAME: MAXX KNOTT [address] [place] MEDICAL REC #: [id number] [place] [address] EMERGENCY DEPARTMENT CHART EMERGENCY DEPARTMENT PHYSICIAN with [...] 4 quadrants, there is an ostomy present [facility] PATIENT NAME: AMXX KNOTT [address] [place] MEDICAL REC #: [id number] [place] [address] EMERGENCY DEPARTMENT CHART EMERGENCY DEPARTMENT PHYSICIAN in [...] he was able to self reduce his [facility] PATIENT NAME: MAXX KNOTT [facility] [facility] [address] [place] MEDICAL REC #: [id number] [place] [address] EMERGENCY DEPARTMENT CHART EMERGENCY DEPARTMENT PHYSICIAN prolapsed ostomy back to a normal state. He reports proved abdominal pain, denies any nausea or vomiting at this time. I do believe he is suitable to be discharged home, it does appear that he is planning to go to the [facility] for ostomy reversal, I recommend that he [...] follow-up. Please follow all your discharge instructions. [facility] PATIENT NAME: MAXX KNOTT [facility] [place] MEDICAL REC #: [id number] [place] [address] EMERGENCY DEPARTMENT CHART EMERGENCY DEPARTMENT PHYSICIAN Medications: [...] prescriptions filled. EKG and Radiology Results: A communication specialist or radiologist will review any EKG or [...] prolapse of colostomy INSTRUCTIONS: Follow-up with the [facility] for takedown of urostomy as planned, return if having recurrent prolapse, worsening abdominal pain, fevers, chills, nausea, vomiting, chest pain or shortness of breath. REFERRAL Your regular doctor(s) [facility] PATIENT NAME: MAXX KNOTT [address] [place] MEDICAL REC #: [id number] [place] [address] EMERGENCY DEPARTMENT CHART EMERGENCY DEPARTMENT PHYSICIAN Please [...] indicates consent for Case Management to contact [facility] providers in an effort to meet your ongoing healthcare needs. This will allow forcontinuity of care once you leave the Emergency Department. This exchange of informationwill include, but not be limited to, disclosure of your patient information and possible release of records. : FlexChartData Event Time: 11/20/2017 15:20 DEMOGRAPHICS Emergisoft Patient: MAXX KNOTT Sex: M [facility] PATIENT NAME: MAXX KNOTT [address] [facility] [address] [place] MEDICAL REC #: [id number] [place] [address] EMERGENCY DEPARTMENT CHART EMERGENCY DEPARTMENT PHYSICIAN : 1950 Age: 67 yr Account No: [id number] Registration Date: 12:18 11/20/2017 Address: [address] [place] [address] [address] Address: [place] [address] REGISTRATION ED Number: [id number] Marital Status: D Financial Class: FEDP TRIAGE Priority: 3 - Urgent Complaint: Abdominal Pain Stated Complaint: STATES PAIN FROM CHRONIC PROLAPSED COLOSTOMY. Arrival Date: 11/20/2017 12:18 Triage Date: 11/20/2017 12:19 Mode of Arrival: *Privately Owned Vehicle WC: N Language: Guamanian Transport: Ambulatory/Walk In BED A07 In: 11/20/2017 12:28:46 11/20/2017 12:28:46 LLP A07 (Removed From) Out: 11/20/2017 15:24:06 11/20/2017 15:24:06 AGRICULTURAL SERVICES DIRECTOR PROVIDERS MD Ruperto Arndt Provider Contact: 11/20/2017 12:46:23 ADB End: [facility] PATIENT NAME: MAXX KNOTT [address] [place] MEDICAL REC #: [id number] [place] [address] EMERGENCY DEPARTMENT CHART EMERGENCY DEPARTMENT PHYSICIAN MITCHELL [...] TABLET - PO qhs 11/20/2017 12:28 LLP [facility] PATIENT NAME: MAXX KNOTT [address] [place] MEDICAL REC #: [id number] [place] [address] EMERGENCY DEPARTMENT CHART EMERGENCY DEPARTMENT PHYSICIAN Name: [...] 12:19 TPJ Surgery: COLOSTOMY 11/20/2017 12:19 TPJ [facility] PATIENT NAME: MAXX KNOTT [address] [place] MEDICAL REC #: [id number] [place] [address] EMERGENCY DEPARTMENT CHART EMERGENCY DEPARTMENT PHYSICIAN Surgery: [...] 15:11 REPORT GIVEN TO MITCHELL CAMERON 11/20/2017 [facility] PATIENT NAME: MAXX KNOTT [facility] [address] [place] MEDICAL REC #: [id number] [place] [address] EMERGENCY DEPARTMENT CHART EMERGENCY DEPARTMENT PHYSICIAN 15:11 ARM 11/20/2017 15:22 Clinical sobriety performed at this time. Pt answered all questions correctly. Pt ambulated to the lobby with a steady gait. 11/20/2017 15:23 AGRICULTURAL SERVICES DIRECTOR TREATMENT 11/20/2017 13:28 Hourly Rounding - Rounding [...] Travel History - Traveled outside of the psychiatric hospital in the last 30 days No [facility] PATIENT NAME: MAXX KNOTT [address] [place] MEDICAL REC #: [id number] [place] [address] EMERGENCY DEPARTMENT CHART EMERGENCY DEPARTMENT PHYSICIAN Travel [...] ARM 11/20/2017 15:09 Education - Pain Management [facility] PATIENT NAME: MAXX KNOTT [facility] [address] [place] MEDICAL REC #: [id number] [place] [address] EMERGENCY DEPARTMENT CHART EMERGENCY DEPARTMENT PHYSICIAN Re-Assessed [...] 11/20/2017 12:24 map 116 11/20/2017 12:28 LLP [facility] PATIENT NAME: MAXX KNOTT0 Jennifer Dixon MEDICAL REC #: [id number] [place] [address] EMERGENCY DEPARTMENT CHART EMERGENCY DEPARTMENT PHYSICIAN VS-ROUTINE [...] Completed Time: 11/20/2017 14:30 By Ruperto Arndt OPTICAL LAB TECHNICIAN ORDER: GFRP 11/20/2017 13:45 None [facility] PATIENT NAME: MAXX KNOTT [address] [place] MEDICAL REC #: [id number] [place] [address] EMERGENCY DEPARTMENT CHART EMERGENCY DEPARTMENT PHYSICIAN Ordered: 11/20/2017 13:45 Completed Time: 11/20/2017 13:45 Results Time: 11/20/2017 13:45 Zofran (IM)*(2mg/ml) DOSE: 4 mg IM 11/20/2017 13:27 N/A Ordered: 11/20/2017 13:27 By Ruperto Arndt Completed Time: 11/20/2017 13:27 By Ruperto Arndt Morphine (IM)*(10mg/ml) DOSE: 10 mg IM 11/20/2017 13:27 N/A Ordered: 11/20/2017 13:20 By Ruperto Arndt Completed Time: 11/20/2017 13:27 [...] (IV)*(2mg/ml) DOSE: 4 mg IV 11/20/2017 13:20 [facility] PATIENT NAME: MAXX KNOTT [address] [place] MEDICAL REC #: [id number] [place] [address] EMERGENCY DEPARTMENT CHART EMERGENCY DEPARTMENT PHYSICIAN N/A [...] RN LLP LYNN VILLASENOR RN TPJ Ruperto LIU AGRICULTURAL SERVICES DIRECTOR [facility] PATIENT NAME: MAXX KNOTT [address] [place] MEDICAL REC #: [id number] [place] [address] EMERGENCY DEPARTMENT CHART EMERGENCY DEPARTMENT PHYSICIAN BMP Collected: 11/20/2017 Status: F Source: [facility] 1:15 PM [facility] REPOSITORY Order Comment: [place]: M TYPE CODE TESTS RESULT OUT OF RANGE REFERENCE UNITS LAB L500.57959 136-145 MMOL/L Normal NA 139 LAB L500.67063 3.5-5.1 MMOL/L Normal K 3.7 Result Comment: Slight Hemolysis, Result may be falsely increased. LAB L500.83332 98-107 MMOL/L Normal CL 104 LAB L500.49483 21-32 MMOL/L Normal CO2 26 LAB L500.23771 5-16 MMOL/L Normal AGAP 9 LAB L500.92384 70-100 MG/DL High GLU 116 Result Comment: 70-100- Normal Fasting; 100-125 Impaired Fasting; greater than 126 on more than one result- Diabetes. ADA guidelines. Results may be falsely elevated after the administration of Sulfapyridine. Results may be falsely depressed after the administration of Sulfasalazine. LAB L500.90081 7-26 MG/DL Normal BUN 16 LAB L500.30531 0.670-1.170 MG/DL Normal CREAT 0.874 Result Comment: Patients receiving either N-Acetylcysteine (NAC) or Metamizole prior to venipuncture, may have falsely depressed results. LAB L500.99683 15-24 Normal BUN/CREA 18 LAB L500.60746 8.5-10.1 MG/DL Normal CALCIUM TOTAL 9.3 Performed By: #### L500.82695, L500.17543 #### [facility] [address] [place] [address] GFR EST Collected: 11/20/2017 Status: F Source: [facility] 1:15 PM [facility] REPOSITORY Order Comment: [place]: M TYPE CODE TESTS RESULT OUT OF RANGE REFERENCE UNITS LAB L500.72468 ML/MIN Normal IF non-AFR Greater than AMER 60 LAB L500.69747 ML/MIN Normal IF Greater than AMER 60 Performed By: #### L500.34690, L500.87349 #### [facility] [address] [place] [address] CBC W/DIFF Collected: 11/20/2017 Status: F Source: [facility] 1:15 PM [facility] REPOSITORY Order Comment: [place]: M TYPE CODE TESTS RESULT OUT OF RANGE REFERENCE UNITS LAB L200.81417 4.5-11.0 K/CU MM High WBC 12.2 LAB L200.43853 4.50-6.00 M/CU MM RBC Normal 4.60 LAB L200.19324 13.5-17.5 G/DL HGB Normal 13.7 LAB L200.39083 41.0-53.0 % Low HCT 40.5 LAB L200.65081 80.0-99.0 fl MCV Normal 88.0 LAB L200.08425 32.0-36.0 GM/DL MCHC Normal 33.8 LAB L200.97762 11-14.5 High RDW 15.7 LAB L200.32824 9.4-12.4 MPV Normal 10.2 LAB L200.60767 150-450 K/CU MM PLT Normal 322 LAB L200.87058 45-75 % High NEUTROPHILS % 76.7 LAB L200.97184 Less than 2 % IMMATURE Normal GRAN % 0.4 LAB L200.27932 20-40 % Low LYMPH % 16.3 LAB L200.71418 2-10 % MONOCYTE % Normal 6.2 LAB L200.90109 0-5 % EOSINOPHIL Normal % 0.2 LAB L200.30628 0-2 % BASOPHIL % Normal 0.2 LAB L200.15278 2.0-8.3 K/CU MM High NEUTROPHIL ABS 9.40 LAB L200.52647 Less than 2 K/CU MM IMMATR GRAN Normal ABS 0.10 LAB L200.99373 0.9-4.4 K/CU MM LYMPH ABS Normal 2.00 LAB L200.86233 0.1-1.1 K/CU MM MONO ABS Normal 0.80 LAB L200.63729 0-0.5 K/CU MM EOS ABS Normal 0.00 LAB L200.37296 0-0.2 K/CU MM BASO ABS Normal 0.00 LAB L200.55750 Less than 1 % NRBC Normal 0.0 Performed By: #### L200.15799 #### [facility] [address] [place] [address]# [phone] RAD/AAS FL/UP-DE W/PA Observed: 11/19/2017 Status: F Source: [facility] CXR 7:19 PM [facility] REPOSITORY Patient Name: MAXX KNOTT STUDY: RAD/AAS FL/UP-DE W/PA CXR; 11/19/2017 7:00 pm INDICATION: abd pain. Patient fell and hit the ostomy COMPARISON: October 27, 2017 ACCESSION NUMBER(S): [id number] ORDERING CLINICIAN: MARCO BLAIR FINDINGS: Right lower quadrant ostomy seen. Is not evaluated in a diagnostic manner. Bowel gas pattern unremarkable. There is no evidence of free air. Cardiomegaly with pacemaker unchanged. No chest consolidation seen. IMPRESSION: Right lower quadrant ostomy not evaluated in a diagnostic fashion. Nonspecific bowel gas pattern. No evidence of acute intrathoracic abnormality. Dictated by: Electronically Signed by: Marco Jeronimo Electronically Signed on: 11/19/2017 7:19 PM BMP Collected: 11/19/2017 Status: F Source: [place] 6:25 PM [facility] REPOSITORY TYPE CODE TESTS RESULT OUT OF REFERENCE UNITS RANGE LAB 2298847(LO 136-144 mmol/L INC) Sodium 138 LAB 1802717(LO 3.4-5.1 mmol/L INC) Potassium 3.4 LAB 9058529(LO 98-107 mmol/L INC) Chloride 100 LAB 6000192(LO 22-32 mmol/L INC) CO2 23 LAB 9220772(LO 70-100 mg/dL INC) Glucose High 150 LAB 4027819(LO 8-26 mg/dL INC) BUN 18 LAB 7766044(LO 0.60-1.30 mg/dL INC) Creatinine 1.10 LAB 7661209(LO 8.1-10.1 mg/dL INC) Calcium 9.6 LAB 214356(USHA 5.0-19.0 mmol/L NC) Anion Gap 15.0 LAB 089865(USHA mOsm/kg NC) Osmolality-Calc 280 LAB 186424(USHA NC) Bun/CretRatio 16.4 AUTO DIFF Collected: 11/19/2017 Status: F Source: [place] 6:24 PM [facility] REPOSITORY TYPE CODE TESTS RESULT OUT OF REFERENCE UNITS RANGE LAB NEUT(LOINC 41.0-73.8 % ) High Neutrophil% 77.0 LAB LYMP%(LOIN 17.0-44.0 % C) Low Lymph % 15.9 LAB MONO%(LOIN 5.3-12.5 % C) Wirt % 6.4 LAB EO%(LOINC) 0.7-6.5 % Low Eo% 0.1 LAB BASO%(LOIN 0.0-2.4 % C) Baso% 0.6 LAB ANEUT(LOIN 1.8-7.5 x10E9/L C) High Neutrophil 9.2 LAB ALYMP(LOIN 1.1-3.5 x10E9/L C) Lymphocyte 1.9 LAB AMONO(LOIN 0.3-1.0 x10E9/L C) Monocyte 0.8 LAB AEO(LOINC) 0.0-0.5 x10E9/L Eosinophil 0.0 LAB ABASO(LOIN 0.0-0.2 x10E9/L C) Basophil 0.1 ZCBCD Collected: 11/19/2017 Status: F Source: [place] 6:24 PM [facility] REPOSITORY TYPE CODE TESTS RESULT OUT OF REFERENCE UNITS RANGE LAB 1690761(LO 4.3-10.5 x10E9/L INC) WBC High 12.0 LAB 8702433(LO 4.18-5.87 x10E12/L INC) RBC 4.74 LAB 5938764(LO 13.4-17.5 g/dL INC) Hemoglobin 14.4 LAB 8499318(LO 37.5-49.2 % INC) Hematocrit 42.7 LAB MCV(LOINC) 80.0-100.0 fL MCV 90.1 LAB MCH(LOINC) 26.5-33.0 pg MCH 30.3 LAB MCHC(LOINC 32.6-36.0 g/dL ) MCHC 33.6 LAB 2131141(LO 144-400 x10E9/L INC) Platelet 326 LAB 926901(USHA 7.2-10.3 fL NC) Mean Plt Vol 8.1 LAB 591626(USHA 11.4-16.0 % NC) RDW High 16.9 PROVIDER NOTE - ED Observed: 11/19/2017 Status: COMPLETED Source: [place] 6:22 PM [facility] REPOSITORY TIME SEEN: ? Time [id number]-9989 17:57 ED NOTES: ? ED Notes Patient comes in after a fall with swelling and concern for intestinal protrusion through his ostomy. Patient states he was in the tub. He felt fine. He sits in a chair while he takes a shower. He stood up in the tub. He grabbed a shower head to help pull himself up which is typical. However, he slipped and fell to his right landing on the edge of the tub. He states he never hit his head. He was not syncopal. He never had chest pain or palpitations. But his abdomen. The tub. When that happened he had protrusion of intestinal contents into his ostomy bag. He denies any other symptom or injury. He states the ostomy was placed for diverticulitis with perforation and it was done 2 or so years ago. He cannot recall currently where this procedure was done at. CHIEF COMPLAINT/REASON FOR VISIT: ? Chief Complaintfall in shower on stoma, intestine out in colestomy bag(1) ? REASON FOR VISITAbdominal Pain(1) ALLERGIES: Allergies: ? ramipril: Drug, swelling, Other(See Desc), Active ? Crestor: Drug, swelling, Other(See Desc), Active ? hydrochlorothiazide: Drug, swelling, Other(See Desc), Active ? moxifloxacin: Drug, Angioedema (Moderate), Active ? simvastatin: Drug, Unknown, Active ? Voltaren Topical: Drug, Unknown, Active ? Brilinta: Drug, Unknown, Active OUTPATIENT MEDICATION, REVIEW/ADD MEDICATIONS: * Patient Currently Takes Medications as of 08-Nov-2017 15:13 documented in Structured Notes PAST MEDICAL HISTORY: CV: HYPERLIPIDEMIA, HYPERTENSION, CORONARY ARTERY DISEASE, CONGESTIVE HEART FAILURE(1) Resp: ASTHMA(1) GI: DIVERTICULITIS/DIVERTICULOSIS, Ostomy bag(1) Additional Past Medical History: CABG 2006 Stent January 2017 and pacemaker Readmission for chest pain January 2017(1) PAST SURGICAL HISTORY: CV/Resp: CORONARY ARTERY BYPASS GRAFT(1) GI/Hepatobiliary: APPENDECTOMY, LUIS ENRIQUE COLECTOMY(1) Additional Past Surgical History: diverting loop colostomy(1) FAMILY HISTORY: Family History: positive (1) Conditions: coronary artery disease(1) Family Member with Coronary Artery Disease: father(1) SUBSTANCE USE: ? Smoking Statuscurrent every day smoker(1) ? Tobacco Typepipe(1) ? Alcohol Use Statusalcohol never used (1) ? Street Drug/Inhalant/Medication Use Statusstreet drug/inhalants/medication never used (1) PRIMARY CARE PHYSICIAN: ? [facility] [address]2) HISTORY ATTESTATION: ? AttestationI have reviewed and confirmed nurse's/medic's notes for patient's medications, allergies, medical history, and surgical history REVIEW OF SYSTEMS: ? General: NEGATIVE: chills, fever ? Eye: NEGATIVE: vision changes ? Ear: NEGATIVE: hearing loss ? Mouth/Throat: NEGATIVE: throat pain ? Respiratory: NEGATIVE: cough, pleuritic chest pain ? Cardiovascular: NEGATIVE: chest pain, palpitation ? Gastrointestinal: POSITIVE: abdominal pain, nausea; NEGATIVE: constipation, diarrhea, vomiting ? Gastrorectal: Comments Ostomy bowel protrusion ? Genitourinary: NEGATIVE: dysuria ? Musculoskeletal: NEGATIVE: back pain, pain, stiffness ? Heme/Lymph: NEGATIVE: bleed/bruise easily; Comments Aspirin only thinner ? Endocrine: NEGATIVE: polydipsia, polyuria VITAL SIGNS: 2. Vital Signs: Date/TimeTemp (degrees F) (degrees F)Temp (degrees C) (degrees C)Temperature Site SiteHeart Rate (beats/min) beats/minBP Systolic (mm Hg) Systolic 19-Nov-2017 17:[id number] BP Diastolic (mm Hg) Diastolic (mm Hg)BP Mean (mm Hg) Mean (mm Hg) Respiration (breaths/min) Respiration (breaths/min)SpO2 (%) SpO2 (%)Height (ft) Height (ft) [id number] Height (remainder in inches) Height (in)Height (cm) Height (cm)Height Method Height MethodWeight MethodBSA (m2) 8172.2qzxovkbttonj2.03 BMI (kg/m2) BMI (kg/m2)Weight (lbs) Weight (lbs)Weight (kg) Weight (kg) Presence of PainLocation Location 28.679208.1complains of pain/discomfortabdomen Pain Rating 9/10 PHYSICAL EXAMINATION: ? General Appearance CommentsWell developed, well nourished and no acute distress. Patient is sitting comfortably on the bed. ? Skin CommentsSkin warm and dry. Normal turgor. No rash, no ulcers, and no trauma. No notable pallor. ? Neck and Thyroid CommentsNeck supple, no thyromegaly, no jugular venous distention. Patient has good range of motion. ? Eyes CommentsPupils are symmetric and reactive to light, conjunctiva and eyelids are normal. ? Ears, Nose, Mouth and Throat CommentsExternal Nose: no mass or deformity, External Ears: no mass or deformity. Mucous membranes are moist. ? Respiratory CommentsNormal respiratory effort, clear to auscultation. No pain with deep breath. There are no wheezes rhonchi or rales. ? Cardiovascular CommentsRegular sinus rhythm, S1 normal, S2 normal. No murmur, rub or gallop. No clubbing and no cyanosis. No muffled heart tones. Patient does have a pacer but does not appear to be paced on the monitor at this time. ? Pulses CommentsPeripheral pulses are equal and normal. ? Edema Or Varicosities CommentsThere are no edema, cords, tenderness along the venous system, asymmetry. ? Gastrointestinal CommentsPatient's bowel sounds are still normal. He has not ostomy in his right upper abdomen. The ostomy bag appears to be essentially intestines along with a small amount of stool. There is no blood seen. ? Musculoskeletal CommentsNormal overall range of motion without any joint discomfort. I don't see any sign by history or exam of injured skeletal structure. ? Neurological CommentsOriented to person, place and time. Gross motor strength normal. ? Psychiatric CommentsNormal mood and affect. PROGRESS NOTE: ? ED Course: I placed a call to surgery after initially seeing this patient. They have come down and her seeing and evaluating him at this time. 18:30 I just rechecked the patient. He is still uncomfortable but has not yet gotten his medications. They had a little difficulty getting his initial IV. However, his ostomy bag has a significant reduction in the amount of intestinal material within it. It's probably reduced over 50% at this time. So there seems to already be a significant spontaneous reduction in the herniation of intestines through his ostomy. DIAGNOSES/PROBLEM LIST: Problem [id number]-1FBP-66 ? Colostomy prolapseED FwCqiuhj786.69K94.09 DISCHARGE DISPOSITION: ? Disposition: discharged ? Discharge Type: home CONDITION ON DISCHARGE: ? Condition on Dispositionimproved MEDICATION RECONCILIATION AND DISCHARGE MEDS: * Outpatient Medication Status not yet specified CO-SIGN/ATTESTATION: Comments/ Additional Findings: Blood work showed minimal white count is nonspecific finding. Dr. Ruiz and the resident with Surgery came down and reduce the ostomy. He is comfortable now. They states he can go all night and follow up only if needed. Patient is comfortable with this plan I rechecked also. At this time the x-ray is canceled because it's not been done yet and the symptoms/problem are resolved. Electronic Signatures: Marco Blair) (Signed 19-Nov-2017 19:13) Entered: Time Seen/ED Notes, Chief Complaint/Reason for Visit via Triage Note, Patient History, History Attestation, ROS, Physical Exam, Progress Note, ED Disposition (REQUIRED), Attestation Authored: Time Seen/ED Notes, Chief Complaint/Reason for Visit via Triage Note, Patient History, History Attestation, ROS, Vital Signs, Physical Exam, Progress Note, ED Disposition (REQUIRED), Attestation Last Updated: 19-Nov-2017 19:13 by Marco Blair) References: 1. Data Referenced From Triage Note, Emergency 11/19/2017 5:45 PM 2. Data Referenced From Discharge Summary Physician, Adult 11/08/2017 6:12 PM ED NOTE Observed: 11/19/2017 Status: COMPLETED Source: [place] 3:49 PM [facility] REPOSITORY HNO ID: [id number] Author: Michelle KingRn) MITCHELL Smith Service: Emergency Medicine Author Type: Registered Nurse Type: ED Notes Filed: 11/19/2017 3:52 PM Note Text: Pt left before signing discharge/AMA paperwork. PROGRESS Observed: 11/19/2017 Status: COMPLETED Source: [place] 3:21 PM [facility] REPOSITORY HNO ID: [id number] Author: Frederic Betancourt Psr Service: (none) Author Type: (none) Type: Progress Notes Filed: 11/19/2017 3:23 PM Note Text: Pt is in bed E18-12, pt has been working with career development engineer, will need ER follow up visit once release. Pt didn't want to talk advise that was understood. ED NOTE Observed: 11/19/2017 Status: COMPLETED Source: [place] 3:20 PM [facility] REPOSITORY HNO ID: [id number] Author: Michelle Toth) MITCHELL Smith Service: Emergency Medicine Author Type: Registered Nurse Type: ED Notes Filed: 11/19/2017 3:21 PM Note Text: Ana, at bedside. Pt states fall 2 hours ago, when he noticed portion of intestines in ostomy bag. C/o of nausea. Requesting pain medication. NAD noted. Safety checks completed. Will continue to monitor. ED NOTE Observed: 11/19/2017 Status: COMPLETED Source: [place] 3:19 PM [facility] REPOSITORY HNO ID: [id number] Author: Kiara Aparicio (Medic) Service: Emergency Medicine Author Type: Assistant Infant Teacher and Media Account Executive Type: ED Notes Filed: 11/19/2017 3:20 PM Note Text: Holding off on IV at this time per Resident. ED PROV NOTE Observed: 11/19/2017 Status: COMPLETED Source: [place] 3:19 PM [facility] REPOSITORY HNO ID: [id number] Author: Jerry Peerz MD Service: Emergency Medicine Author Type: Resident [...] shortness of breath. History provided by: Patient historic interpreter used: No PAST MEDICAL HISTORY Diagnosis Date - AAA (abdominal aortic aneurysm) without rupture ([facility]) 05/13/[address] a/p - CAD (coronary artery disease) 2005 CAD s/p CABG x3 (YCZC-JXB-befgpc, PBC-UCV-ohtqhi, GXT-NH6-iuapuwco) (2006 at [place]) - COPD (chronic obstructive pulmonary disease) ([facility]) - Current every day smoker PT SMOKES A PIPE - Diverticulitis Perforated Diverticulitis - Diverticulitis of sigmoid colon 05/15/2017 Added automatically from request for surgery [id number] - Hx of CABG - Pacemaker 02/16/2017 [...] [Amiloride-Hyd* Swelling - Moxifloxacin Swelling - Other Lake-3s Unknown brelinta - Ramipril Swelling Other reaction(s): [...] Course as of Nov 19 1552 Jerry (Res) Ana's Documentation SunNov 19, 2017 1547 Patient declining reduction of his prolapsed colostomy at this time stating he needs IV narcotics beforehand. Patient states he does not have active narcotic prescriptions at home. [place]AR[place] shows active vicodin prescription from 2 days ago. EMR shows patient was seen and worked up in [place] for this last night, which the patient denies. Discussed non-opiate analgesia, which the patient refused, stating he wants to leave. While preparing the AMA form, the patient eloped from the ED. Others' Documentation SunNov 19, 2017 1549 I went into the patient's room. I confronted him about the fact that he was seen in [facility] for this last night he denied being [...] another locations. Last seen last night at [place] for the same symptoms. CT abdomen last [...] He was worked up last night at [facility] for this, at which time CT abdomen [...] Jerry Acosta (Res) MD Ana Resident 11/19/17 6655 Jesus Rojas MD 11/19/17 8873 ED NOTE Observed: 11/19/2017 Status: COMPLETED Source: [place] 3:08 PM [facility] REPOSITORY HNO ID: [id number] Author: Shannon (Rn) Charles, RN Service: (none) Author Type: Registered Nurse Type: ED Notes Filed: 11/19/2017 3:08 PM Note Text: Bed: E18-12 Expected date: Expected time: Means of arrival: Comments: EMS ED NOTE Observed: 11/19/2017 Status: COMPLETED Source: [place] 3:04 PM [facility] REPOSITORY HNO ID: [id number] Author: Mary (Rn) MITCHELL Zaidi Service: Emergency Medicine Author Type: Registered Nurse Type: ED Notes Filed: 11/19/2017 3:08 PM Note Text: Pt brought to triage vi wheelchair for c/o trip and fall 2 hrs ago, noticed what appeared to be portion of his intestines in his ostomy bag. DISCHARGE INSTRUCTION Observed: 11/18/2017 Status: F Source: [place] 4:19 PM [facility] REPOSITORY [facility] Medical Records Department [address] [place] [address] Discharge Instruction 11/18/178 MR#: [id number] Acct: [id number] Name: MAXX KNOTT Rep #: [id number] : 1950 67 From: Torsten Garcia DO PCP: [place], [place] Status: REG ER ED Disposition - Plan for ED Patient: Chief Complaint: Fall Instructions: ED Mechanical Fall, Colostomy: Caring for Your Stoma Referrals: [facility] [Primary Care Provider] - Additional Instructions: see your surgeon What to do if you have Problems For any increased pain, shortness of breath, bleeding, nausea or vomiting, chest pain, or any unexpected problems, contact your Primary Care Provider. Call [facility] ([phone]) or report to the closest Emergency Room. Call 911 if necessary. 11/18/17 1619 <Electronically signed by Torsten Garcia DO> Date Torsten Garcia DO Cosigner Signature (If Indicated): Date CC: [facility] EMERGENCY DEPARTMENT Observed: 11/18/2017 Status: F Source: [place] SUMMARY 4:17 PM [facility] REPOSITORY [facility] Medical Records Department [address] [place] [address] Emergency Department Summary 11/18/17 1615 MR#: [id number] Acct: [id number] Name: MAXX KNOTT Rep #: [id number] : 1950 67 From: Torsten Garcia DO PCP: [place], [place] Status: REG ER - ER Visit [...] reason first in about a month at [facility]. Patient states he tripped over a bed [...] bowel herniation-reduced] This note was generated with [employer] dictation software. It may contain incorrect words, spelling, and punctuation that were not noted in review of the chart prior to signing ED Disposition - Plan for ED Patient: Chief Complaint: Fall Referrals: [facility] [Primary Care Provider] - What to do if you have Problems For any increased pain, shortness of breath, bleeding, nausea or vomiting, chest pain, or any unexpected problems, contact your Primary Care Provider. Call [facility] ([phone]) or report to the closest Emergency Room. Call 911 if necessary. 11/18/17 1617 <Electronically signed by Torsten Garcia DO> Date Torsetn Garcia DO Cosigner Signature (If Indicated): Date CC: [facility] CHEST 2 VIEWS Observed: 11/18/2017 Status: F Source: [facility] 12:10 PM HEALTH SYSTEM REPOSITORY Performed at [facility] APPROVED BY: Lenin Blakely [...] ED NOTE Observed: 11/18/2017 Status: COMPLETED Source: [place] 12:04 PM [facility] REPOSITORY HNO ID: [id number] Author: Rebecca KingRn) MITCHELL Laurent Service: Emergency Medicine Author Type: Registered Nurse Type: ED Notes Filed: 11/18/2017 12:04 PM Note Text: Pt to xray at this time. ED NOTE Observed: 11/18/2017 Status: COMPLETED Source: [place] 11:29 AM [facility]IN[facility] OTHER [facility] REPOSITORY HNO ID: [id number] Author: Rebecca (Rn) MITCHELL Laurent Service: Emergency Medicine Author Type: Registered Nurse Type: ED Notes Filed: 11/18/2017 11:29 AM Note Text: Rad room called at this time. HEMOGRAM/DIFF Collected: 11/18/2017 Status: F Source: [facility] 11:08 AM HEALTH SYSTEM REPOSITORY TYPE CODE [...] 1.75 LAB MONON(LOIN 0.30-0.82 thou/cmm C) Abs. Wirt 0.75 LAB EOSN(LOINC 0.04-0.54 thou/cmm ) Low Abs. Eosin 0.01 LAB BASON(LOIN 0.01-0.08 thou/cmm C) Abs. Baso 0.02 Performed By: #### CBCD1 #### [facility] [address] [address] [address] ABDOMEN AND PELVIS Observed: 11/18/2017 Status: F Source: [facility] WITH CONTRAST 10:51 AM HEALTH SYSTEM REPOSITORY Performed at [facility] APPROVED BY: Lisa Jorge [...] ED NOTE Observed: 11/18/2017 Status: COMPLETED Source: [place] 10:28 AM [facility] REPOSITORY HNO ID: [id number] Author: Rebecca Laurent RN Service: Emergency Medicine Author Type: Registered Nurse Type: ED Notes Filed: 11/18/2017 10:28 AM Note Text: Urine specimen sent to lab. URINALYSIS ROUTINE Collected: 11/18/2017 Status: F Source: [facility] 10:25 AM HEALTH SYSTEM REPOSITORY TYPE CODE [...] Urine NEGATIVE LAB SPG(LOINC) 1.005-1.030 Specific 1.022 [place], Ur LAB PHUR(LOINC 5.0-8.0 ) pH,Urine 6.5 [...] Cast 1.2 Performed By: #### URIN2 #### [place] [address] ED NOTE Observed: 11/18/2017 Status: COMPLETED Source: [place] 10:24 AM [facility] REPOSITORY HNO ID: [id number] Author: Rebecca Laurent RN Service: Emergency Medicine Author Type: Registered Nurse Type: ED Notes Filed: 11/18/2017 10:24 AM Note Text: Pt to CT at this time. ED NOTE Observed: 11/18/2017 Status: COMPLETED Source: [place] 10:12 AM [facility] REPOSITORY HNO ID: [id number] Author: Rebecca Laurent RN Service: Emergency Medicine Author Type: Registered Nurse Type: ED Notes Filed: 11/18/2017 10:12 AM Note Text: CT/XR called for at this time. ED NOTE Observed: 11/18/2017 Status: COMPLETED Source: [place] 10:08 AM [facility] REPOSITORY HNO ID: [id number] Author: Rebecca Laurent RN Service: Emergency Medicine Author Type: Registered Nurse Type: ED Notes Filed: 11/18/2017 10:08 AM Note Text: Pt provided with urinal at this time for urine specimen. [facility] TROPONIN I Collected: 11/18/2017 Status: F Source: [facility] 10:01 AM HEALTH SYSTEM REPOSITORY TYPE CODE TESTS RESULT OUT OF REFERENCE UNITS RANGE LAB ERTRP(LOINC 0.015-0.045 ng/ml ) ECU Troponin I < 0.015 Performed By: #### ERTRP #### [place] [address] COMPREHENSIVE PANEL Collected: 11/18/2017 Status: F Source: [facility] 10:01 HEALTH SYSTEM REPOSITORY TYPE CODE TESTS [...] Gap 11 Performed By: #### P14 #### [place] [address] LIPASE BLOOD Collected: 11/18/2017 Status: F Source: [facility] 10:01 HEALTH SYSTEM REPOSITORY TYPE CODE TESTS RESULT OUT OF REFERENCE UNITS RANGE LAB LIP(LOINC) 73-393 U/L Low Lipase Blood 64 Performed By: #### LIP #### [place] [address] MDRD GFR Collected: 11/18/2017 Status: F Source: [facility] 10:01 HEALTH SYSTEM REPOSITORY TYPE CODE TESTS RESULT OUT OF RANGE REFERENCE UNITS LAB GFRFN(LOINC >60mL/min/1.73m ) 2 eGFR >60 Result Comment: If the patient is , multiply the result by 1.210. Performed By: #### GFR #### [place] [address] LACTIC ACID Collected: 11/18/2017 Status: F Source: [facility] 10:01 HEALTH SYSTEM REPOSITORY TYPE CODE TESTS RESULT OUT OF REFERENCE UNITS RANGE LAB LAC(LOINC) 0.4-2.0 mEq/L High alert Lactic Acid 2.1 Performed By: #### LAC #### [place] [address] ED NOTE Observed: 11/18/2017 Status: COMPLETED Source: [place] 9:43 AM CLINIC OTHER CAMPUS REPOSITORY HNO ID: [id number] Author: Rebecca KingRn) MITCHELL Laurent Service: Emergency Medicine Author Type: Registered Nurse Type: ED Notes Filed: 11/18/2017 9:43 AM Note Text: Unable to place IV x 2 attempts. ED PROV NOTE Observed: 11/18/2017 Status: COMPLETED Source: [place] 9:41 AM [facility] REPOSITORY HNO ID: [id number] Author: Kajal Laurent MD Service: Emergency Medicine [...] PROV NOTE Observed: 11/18/2017 Status: COMPLETED Source: [place] 9:20 AM [facility] REPOSITORY HNO ID: [id number] Author: Kajal Laurent MD Service: Emergency Medicine [...] (abdominal aortic aneurysm) without rupture ([facility]) 05/13/[address] a/p - CAD (coronary artery disease) 2005 CAD s/p CABG x3 (HMSG-IEA-zgttif, YME-ZOF-oiaadb, PFM-JM9-ssiuoqjt) (2006 at [place]) - COPD (chronic obstructive pulmonary disease) ([facility]) - Current every day smoker PT SMOKES A PIPE - Diverticulitis Perforated Diverticulitis - Diverticulitis of sigmoid colon 05/15/2017 Added automatically from request for surgery [id number] - Hx of CABG - Pacemaker 02/16/2017 s/p PPM () 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 Pt states he tripped and fell this morning onto abdomen. Pt with colostomy and has increased protrusion of stoma. EKG Observed: 11/18/2017 Status: F Source: [place] 8:36 AM [facility] REPOSITORY NAME : MAXX KNOTT PID : [id number] : 1950 Gender : Male Race : [...] ms QTC Calculation(Bezet) : 459 ms P [place]der[place] : 66 degrees R [place] : 54 degrees T [place] : 58 degrees Test Reason : Location : 4 : [facility] CHAR Overread By : MD Laurent Carol Editted By : MD Laurent Carol Referred By : , Acquired by : Char Hanks EMERGENCY DEPARTMENT Observed: 11/17/2017 Status: F Source: [place] SUMMARY 4:27 PM [facility] REPOSITORY [facility] Medical Records Department [address] [place] [address] Emergency Department Summary 11/17/17 0941 MR#: [id number] Acct: [id number] Name: MAXX KNOTT Shekhar Rep #: [id number] : 1950 67 From: Verenice Shell MD PCP: [facility] [place] Status: DEP ER - ER Visit Summary Date of Service: 11/17/17 Chief Complaint: Colostomy problem History of Present Illness: The patient is a 67 M with a 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 Patient states he fell this morning and bowel prolapse into the ostomy bag. He is scheduled for reversal of the colostomy next month at [facility]. Physical Examination: Vital signs significant for blood [...] is to follow-up with his surgeon in [place]. Treatment Plan: [] Disposition: Discharge Impression: Bowel herniation at colostomy site, reduced This note was generated with [employer] dictation software. It may contain incorrect words, spelling, and punctuation that were not noted in review of the chart prior to signing ED Disposition - Plan for ED Patient: Chief Complaint: Abd Pain Referrals: [facility] [Primary Care Provider] - What to do if you have Problems For any increased pain, shortness of breath, bleeding, nausea or vomiting, chest pain, or any unexpected problems, contact your Primary Care Provider. Call [facility] ([phone]) or report to the closest Emergency Room. Call 911 if necessary. 11/17/17 7665 <Electronically signed by Verenice Shell MD> Date Verenice Shell MD Cosigner Signature (If Indicated): Date CC: [place] Hospital DISCHARGE INSTRUCTION Observed: 11/17/2017 Status: F Source: [place] 12:59 PM [facility] REPOSITORY [facility] Medical Records Department [address] [place] [address] Discharge Instruction 11/17/17 1255 MR#: [id number] Acct: [id number] Name: MAXX KNOTT Rep #: [id number] : 1950 67 From: Verenice Shell MD PCP: [facility] [place] Status: REG ER ED Disposition - Plan for ED Patient: Disposition: Home or Assisted Living Chief Complaint: Abd Pain Instructions: Colostomy: Answers to Common Questions Prescriptions: Hydrocodone Bitart/Apap 5-325 [Palisade 5MG-325MG] 1 tablet PO Q4H PRN PRN 2 Days #10 tablet PRN Reason: Pain Referrals: [facility] [Primary Care Provider] - Additional Instructions: Follow-up with your surgeon in [place] as soon as possible. What to do if you have Problems For any increased pain, shortness of breath, bleeding, nausea or vomiting, chest pain, or any unexpected problems, contact your Primary Care Provider. Call [facility] ([phone]) or report to the closest Emergency Room. Call 911 if necessary. 11/17/17 1259 <Electronically signed by Verenice Shell MD> Date Verenice Shell MD Cosigner Signature (If Indicated): Date CC: [facility] SGNOFF.IMS Observed: 11/13/2017 Status: UNK Source: [facility] 4:[address] [facility] Patient Name: MAXX KNOTT [address] Date of : [address] [place] [address] Unit Number: [id number] Prog/Sign Off Note-Hospitalist Patient Status: ADM Maggi Attending Doctor: Fernie Segundo DO Service Date: [...] place draining well Extremities positive edema trace HIDE TANNER no focal deficit Diagnostic Data: Lab 24hr (CBC/BMP [facility]) 11/13/17 0735: D-Dimer 460.0 H 11/13/17 0522: [...] Time Sarah Mauro MD Verified/Reviewed by 11/13/17 1607 VLVD Observed: 11/13/2017 Status: UNK Source: [facility] 3:42 PM [facility] [place] REPOSITORY VASCULAR [employer] REPORT Patient: MAXX KNOTT Account [id number] Ordering Phy: MR: [id number] Reason for Visit: CHEST PAIN,CHRONIC PROLAPSE OF [...] Full Report is available via link to [place] in PCI under [facility] Lab Image Viewer. [facility] PATIENT NAME: MAXX KNOTT [address] [place] MEDICAL REC #: [id number] [place] [address] ADMIT DATE: 11/11/17 DISCHARGE DATE: VENOUS DUPLEX REPORT ATTENDING PHY: Fernie Segundo DO Electronically Signed by: Jerry Ahn MD Esign Date: 11/13/17 PROG IMS Observed: 11/13/2017 Status: UNK Source: [facility] 11:[address] [facility] Patient Name: MAXX KNOTT [address] Date of : [address] [place] [address] Unit Number: [id number] Progress Note-Hospitalist Patient Status: DIS Maggi Attending Doctor: Sarah Mauro MD Service Date: [...] MD D-DIMER Collected: 11/13/2017 Status: F Source: [facility] 7:35 AM [facility] REPOSITORY Order Comment: REDRAW, ORIGINAL TUBE WAS CLOTTED, NOTIFIED ASHER ON 7 MAIN. TYPE CODE TESTS RESULT OUT OF RANGE REFERENCE UNITS LAB L300.85464 0-450 ng/mlFEU High D-DIMER 460.0 Result Comment: [...] a confirmatory diagnostic marker. Performed By: #### L300.75578 #### [facility] [address] [phone] CARD.RSMPI Observed: 11/12/2017 Status: UNK Source: [facility] 2:[address] [facility] Patient Name: MAXX KNOTT [facility] [address] Date of : [address] [place] [address] Unit Number: [id number] [place] SPECT Patient Status: DIS Maggi Attending Doctor: Sarah Mauro MD Service Date: [...] 1110 DISCH.SUM Observed: 11/12/2017 Status: UNK Source: [facility] 11:[address] [facility] Patient Name: MAXX KNOTT [facility] Date of : [address] [place] [address] Unit Number: [id number] Discharge Summary Patient Status: ADM Maggi Attending Doctor: Fernie Segundo DO Service Date: 11/12/17 1144 Discharge Summary Consults Cardiology Labs/Imaging Lab 72hr ([facility] 11/12/17 0556: Troponin I Less than 0.015 [...] Date and Time Sarah Mauro MD PROG [facility] Observed: 11/12/2017 Status: UNK Source: [facility] 11:34 AM [facility] [place] REPOSITORY [facility] Patient Name: MAXX KNOTT [address] Date of : [address] [place] [address] Unit Number: [id number] Progress Note-Hospitalist Patient Status: ADM Maggi Attending Doctor: Fernie Segundo DO Service Date: [...] 1217 CONS.CARD Observed: 11/12/2017 Status: UNK Source: [facility] 8:07 AM [facility] [place] REPOSITORY [facility] Patient Name: MAXX KNOTT [address] Date of : [address] [place], [place] [address] Unit Number: [id number] Consultation-Cardiology Patient Status: ADM Maggi Attending Doctor: Fernie Segundo DO Service Date: 11/12/17 0807 History of Present Illness Referring Physician Crystal Herrera CNP Consulted Provider Rivas Deluca MD History of [...] 11/11/17 1608 Last Action: Continued on 11/11/17 163 by CRYSTAL HERRERA Albuterol Sulfate (Proair Hfa [...] Continued on 11/11/17 1635 by CRYSTAL HERRERA Cyclobenzaprine HCl* (Flexeril 10MG Tab*) 10 MG TABLET 10 MG PO QHS, Ref 0 (Reported) Entered as Reported by JOVANI FAJARDO on 08/26/16 0050 Last Action: Continued on 11/11/17 163 by CRYSTAL HERRERA Furosemide* (Lasix 40MG Tab*) 40 MG TABLET 40 MG PO QDAYPRN PRN SWELLING, Ref 0 ( Reported) Entered as Reported by BATR ROBISON on 02/22/16 0317 Last Taken: At [...] on 11/11/17 1606 Last Action: Continued on 11/11/171634 by CRYSTAL HERRERA Pravastatin Sodium* (Pravachol 40MG [...] as Reported by BESSY KEYS on 11/11/17 160 Last Action: Held on 11/11/171634 by CRYSTAL HERRERA Inpatient Medications Medications Current [...] 11/11 2200 AC 11/11 (FLEXERIL TAB) PO 2123 Furosemide 40 MG QDAYPRN PRN 11/11 1700 AC (LASIX TAB) PO Gabapentin 600 MG QHS 11/11 2200 AC 11/11 (NEURONTIN CAP) PO 2122 Heparin Sodium 5,000 UNIT BID 11/11 2100 AC 11/11 (Porcine) SC 2124 (HEPARIN D.SYR) Loratadine 10 MG QDAYPRN PRN 11/11 1700 AC (CLARITIN TAB) PO Losartan Potassium 100 MG QDAY 11/12 0900 AC (COZAAR 100MG TABLET) PO Metoprolol Succinate 100 MG QHS 11/11 2200 AC 11/11 (TOPROL TAB.SA) PO 2124 Multivitamins 1 UDTAB QDAY 11/12 0900 AC [...] PRN 11/11 2000 AC 11/12 Acetaminophen PO 0337 (percoCET-5/325 TAB) Pravastatin Sodium 40 MG QHS 11/11 2199 AC 11/11 (PRAVACHOL TAB) PO 2124 Quetiapine Fumarate 400 MG QHS 11/11 2200 AC 11/11 (SEROQUEL TAB) PO 2123 Review [...] TROPONIN I Collected: 11/12/2017 Status: F Source: [facility] 5:56 AM [facility] REPOSITORY Order Comment: [place]: M TYPE CODE TESTS RESULT OUT OF RANGE REFERENCE UNITS LAB L550.68881 0.000-0.045 NG/ML Normal TROPONIN I Less than 0.015 Performed By: #### L550.52598 #### [facility] [place] [address] LIPID Collected: 11/12/2017 Status: F Source: [facility] 5:56 AM [facility] REPOSITORY Order Comment: [place]: M TYPE CODE TESTS RESULT OUT OF RANGE REFERENCE UNITS LAB L500.89625 30-149 MG/DL High TRIG 273 Result Comment: Patients receiving either N-Acetylcysteine (NAC) or Metamizole prior to venipuncture, may have falsely depressed results. LAB L500.64563 0-199 MG/DL Normal CHOL 176 LAB L500.87075 [place]ATER [place] 40 MG/DL Low HDL DIRECT 31 Result Comment: Patients receiving Metamizole prior to venipuncture, may have falsely depressed results. LAB L500.39631 0-129 MG/DL Normal LDL 91 Result Comment: ___CHOLESTEROL/HDL RATIO RISK___ CHD RISK = Total CHOL LDL HDL (CHOL/HDL) Recommended <200 <130 >35 <3.4 Borderline 200-239 130-159 3.4-4.99 High >240 >160 >5.0 Performed By: #### L500.14862 #### [facility] [address] [place] [id number] TROPONIN I Collected: 11/11/2017 Status: F Source: [facility] 11:20 PM [facility] Order Comment: [place]: M TYPE CODE TESTS RESULT OUT OF RANGE REFERENCE UNITS LAB L550.06200 0.000-0.045 NG/ML Normal TROPONIN I Less than 0.015 Performed By: #### L550.92417 #### [facility] [address] [place] [address] ED DOC Observed: 11/11/2017 Status: DAPHNE Source: [facility] 4:20 PM [facility] REPOSITORY This is a preliminary report only, as the practitioner review and authentication has not occurred. ED DOC Observed: 11/11/2017 Status: UNK Source: [facility] 4:20 PM [facility] REPOSITORY PHYSICIAN ASSESSMENT RECORDS : FlexChartData Event Time: 11/11/2017 16:05 Status: Signed [facility] Maxx Knott [[id number]] Attending Physician 67 / M / 1950 Chart (V2b) Chart created at 11/11/2017 15:22 by Lee Samuels Chart closed at 11/11/2017 15:33 Entry in Emergency Department at 11/11/2017 12:56 Patient Name: Maxx Knott Record Number: [id number] Date: 11/11/2017 15:22 Entered Department at: 11/11/2017 [...] of coronary disease, he has had bypass [facility] PATIENT NAME: MAXX KNOTT [address] [place] MEDICAL REC #: [id number] [place] [id number] EMERGENCY DEPARTMENT CHART EMERGENCY DEPARTMENT PHYSICIAN surgery [...] Physical Examination: General: Alert and Well Developed [facility] PATIENT NAME: MAXX KNOTT [facility] [address] [place] MEDICAL REC #: [id number] [place] [address] EMERGENCY DEPARTMENT CHART EMERGENCY DEPARTMENT PHYSICIAN HEENT: [...] Samuels MD 11/11/2017 1:19 PM CHEST PORTABLE [facility] PATIENT NAME: MAXX KNOTT [address] [place] MEDICAL REC #: [id number] [place] [address] EMERGENCY DEPARTMENT CHART EMERGENCY DEPARTMENT PHYSICIAN Clinical [...] Radiology: Interpreted by Radiologist. Medical Decision Making [facility] PATIENT NAME: MAXX KNOTT [address] MEDICAL REC #: [id number] [place] [address] EMERGENCY DEPARTMENT CHART EMERGENCY DEPARTMENT PHYSICIAN Chemistries [...] ED by EMS with medical direction by SCEP physician (not applicable for EMT squads) .. ===DISCHARGE REPORT=== : MelvinChartData Event Time: 11/11/2017 16:05 DEMOGRAPHICS [employer] Patient: MAXX KNOTT Sex: M : 1950 Age: 67 yr Account No: [id number] Registration Date: 12:56 11/11/2017 Address: [facility] [address] Address: [place] [address] [facility] PATIENT NAME: MAXX KNOTT [address] [place] MEDICAL REC #: [id number] [place] [address] EMERGENCY DEPARTMENT CHART EMERGENCY DEPARTMENT PHYSICIAN REGISTRATION ED Number: [id number] Marital Status: D Financial Class: FEDP TRIAGE Priority: 3 - Urgent Complaint: Chest Pain Complaint: Abdominal Pain Stated Complaint: PT REPORTS ABDOMINAL PAIN AND PROBLEMS WITH HIS COLOSTOMY. PT ALSO REPORTS MID STENRAL CHEST PAIN. Arrival Date: 11/11/2017 12:56 Triage Date: 11/11/2017 13:04 Mode of Arrival: Ambulatory/Walk-In WC: N Language: Guamanian Transport: Walk-In BED A12 In: 11/11/2017 13:06:56 11/11/2017 13:06:56 SXM A12 (Removed From) Out: 11/11/2017 16:20:30 11/11/2017 16:20:[address] A In: 11/11/2017 18:47:03 11/11/2017 18:47:03 [facility] Notes: NEEDS ON STATUS BOARD ST A (Removed From) Out: 11/11/2017 16:20:34 11/11/2017 16:20:34 [facility] PROVIDERS MD Lee Samuels Provider Contact: 11/11/2017 13:14:49 [facility] [place]: [facility] PATIENT NAME: MAXX KNOTT [address] [place] MEDICAL REC #: [id number] [place] [address] EMERGENCY DEPARTMENT CHART EMERGENCY DEPARTMENT PHYSICIAN MITCHELL VILLASENOR Provider Contact: 11/11/2017 14:26:25 DESIREE End: MITCHELL HARRIS Provider Contact: 11/11/2017 15:24:03 DILIA End: BESSY KEYS Provider Contact: 11/11/2017 16:09:51 [facility] End: TRIAGE HISTORY ALLERGIES Allergic To: CRESTOR [...] COMPLEX TABLET - PO 11/11/2017 14:52 TPJ [facility] PATIENT NAME: MAXX KNOTT [address] [place] MEDICAL REC #: [id number] [place] [address] EMERGENCY DEPARTMENT CHART EMERGENCY DEPARTMENT PHYSICIAN Name: [...] 13:06 SXM Surgery: COLOSTOMY 11/11/2017 13:06 SXM [facility] PATIENT NAME: MAXX KNOTT [facility] [address] [place] MEDICAL REC #: [id number] [place] [address] EMERGENCY DEPARTMENT CHART EMERGENCY DEPARTMENT PHYSICIAN Surgery: [...] fever/chills. Alert and oriented x4. 11/11/2017 13:50 TP 11/11/2017 14:00 Adina Jackson RN unsuccessful x2 for IV [facility] PATIENT NAME: MAXX KNOTT [address] [place] MEDICAL REC #: [id number] [place] [address] EMERGENCY DEPARTMENT CHART EMERGENCY DEPARTMENT PHYSICIAN attempt. 11/11/2017 14:26 TPJ 11/11/2017 16:12 report called to Rose GONZALEZ on 9main. 11/11/2017 16:12 DILIA TREATMENT 11/11/2017 13:48 Staff/ Patient Interaction - Side rails up X2 and call light placed within reach. 11/11/2017 14:27 TPJ 11/11/2017 13:48 Hourly Rounding - Rounding 11/11/2017 14:27 TPJ Elimination/Toileting N Position Comfortable Y Safe Environment Y Fall Risk Change N 11/11/2017 14:48 Primary DOC Guide - A. Patient History 11/11/2017 14:48 TPJ Primary History Source Patient Fabricio Exposure - [...] weeks, how often have you been feeling [facility] PATIENT NAME: MAXX KNOTT [address] [place] MEDICAL REC #: [id number] [place] [address] EMERGENCY DEPARTMENT CHART EMERGENCY DEPARTMENT PHYSICIAN down, [...] IV Fluid: B 11/11/2017 14:40 11/11/2017 14:41 [facility] Line #: 1 Fluid: Saline Lock Rate: ml/hr Location: hand left Ndl Gauge: 22 # Attempts: 3 Notes: IV FLUSHED AND PATENT NO S/S INFILTRATION ABLE TO DRAW OFF LINE WITH EASE I AND O [facility] PATIENT NAME: MAXX KNOTT [address] [place] MEDICAL REC #: [id number] [place] [address] EMERGENCY DEPARTMENT CHART EMERGENCY DEPARTMENT PHYSICIAN VITALS VS-ROUTINE Time: 11/11/2017 13:04 B/P: 161/72 - Right Upper Arm - Sitting - Machine Pulse: 88 - Monitor Resp: 16 Sa02: 96 Room Air Temp: 97.80 F - Oral 11/11/2017 13:06 SXM VS-Pain Time: 11/11/2017 13:04 Pain Level: 8 11/11/2017 13:06 SXM VS-GCS Time: 11/11/2017 13:04 Visual: 4 Verbal: 5 Motor: 6 GCS Total: 11/11/2017 13:06 SXM VS-HT/WT Time: 11/11/2017 13:04 Ht: 172.7 cm Stated Weight: 86.2 kg Actual 11/11/2017 13:06 SXM VS-Visual Time: 11/11/2017 13:04 11/11/2017 13:06 SXM VS-FHT Time: 11/11/2017 13:04 11/11/2017 13:06 SXM VS-Notes Time: 11/11/2017 13:04 MAP 103 11/11/2017 13:06 SXM VS-ROUTINE Time: 11/11/2017 14:42 B/P: 158/69 - Right Upper Arm - Sitting - Machine Pulse: 68 - Child Care Resp: 16 Sa02: 96 Room Air 11/11/2017 14:46 TPJ VS-Pain Time: 11/11/2017 14:42 Pain Level: 8 11/11/2017 14:46 TPJ VS-GCS Time: 11/11/2017 14:42 Visual: 4 Verbal: 5 Motor: 6 GCS Total: 11/11/2017 14:46 TPJ VS-HT/WT Time: 11/11/2017 14:42 11/11/2017 14:46 TPJ VS-Visual Time: 11/11/2017 14:42 11/11/2017 14:46 TPJ VS-FHT Time: 11/11/2017 14:42 11/11/2017 14:46 TPJ VS-Notes Time: 11/11/2017 14:42 map 99 11/11/2017 14:46 TPJ VS-ROUTINE Time: 11/11/2017 14:49 B/P: 146/65 - Right Upper Arm - Sitting - Machine Pulse: 83 - Child Care Resp: 16 Sa02: 95 11/11/2017 14:49 TPJ VS-Pain Time: 11/11/2017 14:49 Pain Level: 7 11/11/2017 14:49 TPJ VS-GCS Time: 11/11/2017 14:49 Visual: 4 Verbal: 5 Motor: 6 GCS Total: 11/11/2017 14:49 TPJ VS-HT/WT Time: 11/11/2017 14:49 11/11/2017 14:49 TPJ VS-Visual Time: 11/11/2017 14:49 11/11/2017 14:49 TPJ VS-FHT Time: 11/11/2017 14:49 11/11/2017 14:49 TPJ [facility] PATIENT NAME: MAXX KNOTT [facility] [address] [place] MEDICAL REC #: [id number] [place] [address] EMERGENCY DEPARTMENT CHART EMERGENCY DEPARTMENT PHYSICIAN VS-Notes Time: 11/11/2017 14:49 map 93 after 1st nitro 11/11/2017 14:49 TPJ VS-ROUTINE Time: 11/11/2017 14:53 B/P: 139/63 - Right Upper Arm - Sitting - Machine Pulse: 92 - Child Care Resp: 16 Sa02: 93 Room Air 11/11/2017 [...] - Sitting - Machine Pulse: 91 - Child Care Resp: 16 Sa02: 93 Room Air 11/11/2017 14:58 TPJ VS-Pain Time: 11/11/2017 14:57 Pain Level: 6 11/11/2017 14:58 TPJ VS-GCS Time: 11/11/2017 14:57 Visual: 4 Verbal: 5 Motor: 6 GCS Total: 11/11/2017 14:58 TPJ VS-HT/WT Time: 11/11/2017 14:57 11/11/2017 14:58 TPJ VS-Visual Time: 11/11/2017 14:57 11/11/2017 14:58 TPJ VS-FHT Time: 11/11/2017 14:57 11/11/2017 14:58 TPJ VS-Notes Time: 11/11/2017 14:57 map 87 after 3rd nitro 11/11/2017 14:58 TPJ VS-ROUTINE Time: 11/11/2017 16:06 B/P: 157/72 - Right Upper Arm - Sitting - Machine Pulse: 70 - Child Care Resp: 18 Sa02: 98 Room Air 11/11/2017 16:06 DRBA VS-Pain Time: 11/11/2017 16:06 Pain Level: 7 11/11/2017 16:06 DRBA VS-GCS Time: 11/11/2017 16:06 Visual: 4 Verbal: 5 Motor: 6 GCS Total: 11/11/2017 16:06 DRBA VS-HT/WT Time: 11/11/2017 16:06 11/11/2017 16:06 DRBA VS-Visual Time: 11/11/2017 16:06 11/11/2017 16:06 DRBA [facility] MEDICAL REC #: [id number] RONY Starks [address] EMERGENCY DEPARTMENT CHART EMERGENCY DEPARTMENT PHYSICIAN VS-FHT Time: 11/11/2017 16:06 11/11/2017 16:06 DRBA VS-Notes Time: 11/11/2017 16:06 map 104 11/11/2017 16:06 DRBA ORDERS OPTICAL LAB TECHNICIAN ORDER: MG 11/11/2017 16:36 None Ordered: 11/11/2017 16:36 Completed Time: 11/11/2017 16:36 Results Time: 11/11/2017 16:36 OPTICAL LAB TECHNICIAN ORDER: LIPA 11/11/2017 15:58 None Ordered: 11/11/2017 15:58 Completed Time: 11/11/2017 15:58 Results Time: 11/11/2017 15:58 OPTICAL LAB TECHNICIAN ORDER: BMP 11/11/2017 15:58 None Ordered: 11/11/2017 15:58 Completed Time: 11/11/2017 15:58 Results Time: 11/11/2017 15:58 OPTICAL LAB TECHNICIAN ORDER: GFRP 11/11/2017 15:58 None Ordered: 11/11/2017 15:58 Completed Time: 11/11/2017 15:58 Results Time: 11/11/2017 15:58 OPTICAL LAB TECHNICIAN ORDER: LIVER 11/11/2017 15:58 None Ordered: 11/11/2017 15:58 Completed Time: 11/11/2017 15:58 Results Time: 11/11/2017 15:58 *Status: Observation 11/11/2017 15:50 N/A Ordered: 11/11/2017 15:33 By . Other Reviewed: 11/11/2017 15:50 By . Other OPTICAL LAB TECHNICIAN ORDER: POCTROP 11/11/2017 15:01 None Ordered: 11/11/2017 15:01 Completed Time: 11/11/2017 15:01 Results Time: 11/11/2017 15:01 Zofran (IV)*(2mg/ml) DOSE: 4 mg IV 11/11/2017 14:52 N/A [facility] PATIENT NAME: MAXX KNOTT [address] [facility] [address] Dixon MEDICAL REC #: [id number] RONY Starks [address] EMERGENCY DEPARTMENT CHART EMERGENCY DEPARTMENT PHYSICIAN Ordered: [...] By Lee Samuels Noted Time: 11/11/2017 14:42 CH Question: Test to be added: Answer: Liver [...] if SAT andlt;= 91% 11/11/2017 13:18 N/A [facility] PATIENT NAME: MAXX KNOTT [address] [facility] [address] [place] MEDICAL REC #: [id number] [place] [address] EMERGENCY DEPARTMENT CHART EMERGENCY DEPARTMENT PHYSICIAN Ordered: [...] Admit Physician: . Other PRESCRIPTIONS CHARGES SIGNATURE [facility] PATIENT NAME: MAXX KNOTT Jennifer Dixon MEDICAL REC #: [id number] [place] [address] EMERGENCY DEPARTMENT CHART EMERGENCY DEPARTMENT PHYSICIAN Lee CALDERÓN [facility] Alison Daniel RN SXHelen VILLASENOR RN Marcos [facility] BESSY KEYS HARDIK DOBBS [facility] PATIENT NAME: MAXX KNOTT Jennifer Dixon MEDICAL REC #: [id number] [place] [address] EMERGENCY DEPARTMENT CHART EMERGENCY DEPARTMENT PHYSICIAN EKG Observed: 11/11/2017 Status: UNK Source: [facility] Procedure Date and Time: 11/11/17 1323 [...] abnormality, worse in Inferior leads Confirmed by PITO BAZAN A. ([id number]) on 11/12/2017 2:16:55 AM Referred By: Crystal Herrera Confirmed By:Krista BAZAN M.D.FACC Osman DDandT: 11/11/17 1323 TDandT: [facility] PATIENT NAME: MAXX KNOTT [facility] Dr. Dixon MEDICAL REC #: [id number] [place] [address] ADMIT DATE: 11/11/17 DISCHARGE DATE: ATTENDING PHY: Fernie Segundo DO ELECTROCARDIOGRAM REPORT CLB cc: [facility] PATIENT NAME: MAXX KNOTT [facility] Dr[facility] Dixon MEDICAL REC #: [id number] [place] [address] ADMIT DATE: 11/11/17 DISCHARGE DATE: ATTENDING PHY: Fernie Segundo DO ELECTROCARDIOGRAM REPORT CR Observed: 11/11/2017 Status: UNK Source: [facility] 4:00 PM [facility] REPOSITORY DATE OF CONSULTATION: 11/12/2017 REFERRING: Luciano. HISTORY OF PRESENT ILLNESS: Mr. Knott is a 67-year-old gentleman who I was asked to see for chest pain and underlying coronary disease. This is now about the sixth time I have seen him during his multiple admissions here to [facility]. He had developed chest pain starting [...] back in August of last year in 2017. He was supposed to have followed up with Dr. Leach for a pacer check, as well as with me for an outpatient visit, and the patient canceled both visits and has not been seen in our office for over a year. The patient does have a communication specialist I believe at [facility] in [place]. He then looked at me and stated he did not know anything about that. He then told me that his pacer was just checked [address] [facility]. He did not know who checked it but stated the device was working fine. Normally, a pacer would be checked at a patient's cardiology's office. He then stated, Oh, yeah, that must be my communication specialist. MEDICATIONS: Assuming his medications are accurate, he is presently on a number of medications includin. Amlodipine. 2. Aspirin. 3. Lasix. 4. Losartan. 5. Metoprolol succinate 50 mg daily. 6. Pravastatin. [facility] PATIENT NAME: MAXX KNOTT [facility] Dr. Dixon MEDICAL REC #: [id number] [place] [address] ADMIT DATE: 11/11/17 DISCHARGE DATE: 11/13/17 CONSULTATION REPORT ATTENDING PHY: Sarah Mauro MD ALLERGIES: Of note, he does have an allergy to [employer] [employer]. PAST MEDICAL HISTORY: Of additional note, this gentleman has had problems with diverticulitis and fistula creations, dictating the necessity for a colostomy in his right lower quadrant. He has had surgeries for this in [place]. He additionally has obstructive sleep apnea. SOCIAL [...] pursue any other further cardiac testing. S MD ALFRED [id number] SSI File#: [id number] Verified/Reviewed by [facility] PATIENT NAME: MAXX KNOTT Jennifer Dixon MEDICAL REC #: [id number] [place] [address] ADMIT DATE: 11/11/17 DISCHARGE DATE: 11/13/17 CONSULTATION REPORT ATTENDING PHY: Sarah Mauro MD 11/18/17 1105 PIPSW [facility] MEDICAL REC #: [id number] [place] [address] ADMIT DATE: 11/11/17 DISCHARGE DATE: 11/13/17 CONSULTATION REPORT ATTENDING PHY: Sarah Mauro MD CDLSTRESS Observed: 11/11/2017 Status: UNK Source: [facility] 4:00 PM [facility] INTERPRETING PHYSICIAN: Ifeoma Rosario MD ATTENDING PHYSICIAN: Fernie Segundo DO ORDERING/REFERRING [...] test for ischemia. S Carmine Rosario MD [facility] PATIENT NAME: MAXX KNOTT [facility] MEDICAL REC #: [id number] [place] [address] ADMIT DATE: 11/11/17 DISCHARGE DATE: 11/13/17 ATTENDING PHY: Sarah Mauro MD CARDIAC STRESS TEST REPORT [id number] SSI File#: [id number] CC: [facility] CC: Fernie Segundo DO Verified/Reviewed by [facility] PATIENT NAME: MAXX KNOTT Shekhar Dixon MEDICAL REC #: [id number] [place] [address] ADMIT DATE: 11/11/17 DISCHARGE DATE: 11/13/17 ATTENDING PHY: Sarah Mauro MD CARDIAC STRESS TEST REPORT HP.IMS.ADM Observed: 11/11/2017 Status: UNK Source: [facility] 3:[address] [facility] Patient Name: MAXX KNOTT [address] Date of : [address] [address] Unit Number: [id number] Admission-HandP Patient Status: REG ER Attending Doctor: Viktor Wellington,Emergency Physicians Service Date: 11/11/17 1556 CRYSTAL HERRERA 11/11/17 1556: History of Present Illness Chief Complaint/Present Illness: CHEST PAIN History of Present Illness This is a pleasant 67-year-old male patient of DC, with history of CHF, COPD, CAD, who presents to [facility] with midsternal chest pain. States it was initially 8 out of 10 nonradiating with nausea, diaphoresis and shortness of breath. States his pain is slightly improved to 7 now. Additionally he has a pacemaker and a colostomy secondary to diverticulitis. He has a prolapsed colostomy requiring surgery at the [facility] in the near future. He does have [...] Hypertension-resume his metoprolol and Norvasc 7. Abdominal yrvm-zefnhl-jl with [facility] for surgery for prolapsed colostomy. We' ll [...] Continued on 11/11/17 1635 by CRYSTAL HERRERA Gabapentin* (Neurontin 300MG Cap*) [...] as Reported by BESSY KEYS on 11/11/17 160 Last Action: Held on 11/11/171634 by CRYSTAL HERRERA Conclusion / Plan Plan [...] 1603 BMP Collected: 11/11/2017 Status: F Source: [facility] 3:17 PM [facility] REPOSITORY Order Comment: PLEASE REDRAW, SPECIMEN GROSSLY HEMOLYZED TYPE CODE TESTS RESULT OUT OF RANGE REFERENCE UNITS LAB L500.53101 136-145 MMOL/L Normal NA 140 LAB L500.71574 3.5-5.1 MMOL/L Normal K 4.0 LAB L500.93278 98-107 MMOL/L Normal CL 104 LAB L500.57195 21-32 MMOL/L Normal CO2 28 LAB L500.84284 5-16 MMOL/L Normal AGAP 8 LAB L500.96016 70-100 MG/DL Normal GLU 99 Result Comment: 70-100- Normal Fasting; 100-125 Impaired Fasting; greater than 126 on more than one result- Diabetes. ADA guidelines. Results may be falsely elevated after the administration of Sulfapyridine. Results may be falsely depressed after the administration of Sulfasalazine. LAB L500.32339 7-26 MG/DL Normal BUN 20 LAB L500.98632 0.670-1.170 MG/DL Normal CREAT 0.866 Result Comment: Patients receiving either N-Acetylcysteine (NAC) or Metamizole prior to venipuncture, may have falsely depressed results. LAB L500.45247 15-24 Normal BUN/CREA 23 LAB L500.42577 8.5-10.1 MG/DL Normal CALCIUM TOTAL 9.0 Performed By: #### L500.48766, L500.65067, L500.43341, L500.38496 #### [facility] [address] [place] [address] GFR EST Collected: 11/11/2017 Status: F Source: [facility] 3:17 PM [facility] REPOSITORY Order Comment: PLEASE REDRAW, SPECIMEN GROSSLY HEMOLYZED TYPE CODE TESTS RESULT OUT OF RANGE REFERENCE UNITS LAB L500.06608 ML/MIN Normal IF non-AFR Greater than AMER 60 LAB L500.52887 ML/MIN Normal IF Greater than AMER 60 Performed By: #### L500.19172, L500.19623, L500.40419, L500.39713 #### [facility] [address] [place] [address] LIVER Collected: 11/11/2017 Status: F Source: [facility] 3:17 PM [facility] REPOSITORY Order Comment: PLEASE REDRAW, SPECIMEN GROSSLY HEMOLYZED TYPE CODE TESTS RESULT OUT OF RANGE REFERENCE UNITS LAB L500.49702 6.0-8.5 GM/DL TP Normal 6.6 LAB L500.01669 3.2-5.0 GM/DL Normal ALBUMIN 3.6 LAB L500.94841 2.2-4.2 GM/DL Normal GLOBULIN 3.0 LAB L500.55614 0.8-2.0 Normal A/G RATIO 1.2 LAB L500.28723 0.2-1.0 MG/DL Normal BILI TOTAL 0.2 LAB L500.00146 0.00-0.20 MG/DL Normal BILI DIRECT 0.09 LAB L500.01109 8-34 U/L Normal SGOT (AST) 25 Result Comment: RESULTS MAY BE FALSELY DEPRESSED AFTER THE ADMINISTRATION OF SULFASALAZINE AND/OR SULFAPYRIDINE. LAB L500.95478 13-61 IU/L Normal SGPT (ALT) 59 Result Comment: RESULTS MAY BE FALSELY DEPRESSED AFTER THE ADMINISTRATION OF SULFASALAZINE AND/OR SULFAPYRIDINE. LAB L500.07058 45-117 U/L Normal ALK PHOS 88 Performed By: #### L500.49736, L500.68372, L500.82295, L500.38878 #### [facility] [address] [place] [address] LIPASE Collected: 11/11/2017 Status: F Source: [facility] 3:17 PM [facility] REPOSITORY Order Comment: PLEASE REDRAW, SPECIMEN GROSSLY HEMOLYZED TYPE CODE TESTS RESULT OUT OF REFERENCE UNITS RANGE LAB L500.30327 73-393 U/L Low LIPASE 66 Performed By: #### L500.22641, L500.30597, L500.47531, L500.61434 #### [facility] [address] [place] [address] MAGNESIUM Collected: 11/11/2017 Status: F Source: [facility] 3:17 PM [facility] REPOSITORY Order Comment: [place]: M TYPE CODE TESTS RESULT OUT OF RANGE REFERENCE UNITS LAB L500.91787 1.6-2.6 MG/DL Normal MAGNESIUM 2.1 Result Comment: Slight Hemolysis, Result may be falsely increased. Performed By: #### L500.25784 #### [facility] [address] [place], [place] [id number] TROPONIN I POC Collected: 11/11/2017 Status: F Source: [facility] 2:45 PM [facility] REPOSITORY TYPE CODE TESTS RESULT OUT OF RANGE REFERENCE UNITS LAB L550.33779 0.0-0.06 NG/ML Normal TROPONIN I POC 0.02 Result Comment: 0.0 - 0.06 NG/ML - NON- DIAGNOSTIC (REFERENCE RANGE) 0.07 - 0.59 NG/ML - INDETERMINATE Greater than or equal to 0.6 NG/ML - INDICATIVE OF MYOCARDIAL DAMAGE CBC W/DIFF Collected: 11/11/2017 Status: F Source: [facility] 2:39 PM [facility] REPOSITORY Order Comment: [place]: M TYPE CODE TESTS RESULT OUT OF RANGE REFERENCE UNITS LAB L200.72817 4.5-11.0 K/CU MM WBC Normal 10.6 LAB L200.86897 4.50-6.00 M/CU MM RBC Normal 4.72 LAB L200.38054 13.5-17.5 G/DL HGB Normal 14.0 LAB L200.39388 41.0-53.0 % HCT Normal 41.3 LAB L200.94827 80.0-99.0 fl MCV Normal 87.5 LAB L200.13974 32.0-36.0 GM/DL MCHC Normal 33.9 LAB L200.79792 11-14.5 High RDW 15.3 LAB L200.80987 9.4-12.4 MPV Normal 10.4 LAB L200.07593 150-450 K/CU MM PLT Normal 288 LAB L200.62365 45-75 % NEUTROPHILS Normal % 69.4 LAB L200.37473 Less than 2 % IMMATURE Normal GRAN % 0.5 LAB L200.07757 20-40 % Low LYMPH % 19.3 LAB L200.08731 2-10 % MONOCYTE % Normal 7.9 LAB L200.99826 0-5 % EOSINOPHIL Normal % 2.4 LAB L200.07906 0-2 % BASOPHIL % Normal 0.5 LAB L200.06023 2.0-8.3 K/CU MM NEUTROPHIL Normal ABS 7.30 LAB L200.32254 Less than 2 K/CU MM IMMATR GRAN Normal ABS 0.10 LAB L200.20071 0.9-4.4 K/CU MM LYMPH ABS Normal 2.00 LAB L200.16218 0.1-1.1 K/CU MM MONO ABS Normal 0.80 LAB L200.25106 0-0.5 K/CU MM EOS ABS Normal 0.30 LAB L200.05623 0-0.2 K/CU MM BASO ABS Normal 0.10 LAB L200.27294 Less than 1 % NRBC Normal 0.0 Performed By: #### L200.90401 #### [facility] [address] [id number] # [phone] CT/CTA HEAD W/O AND Observed: 11/08/2017 Status: F Source: [facility]ERT WITH 7:23 AM [facility] REPOSITORY Patient Name: MAXX KNOTT STUDY: CT/CTA HEAD W/O AND WITH; 11/07/2017 5:44 pm INDICATION: possible tia. COMPARISON: None. ACCESSION NUMBER(S): [id number] ORDERING CLINICIAN: SHELL CINTRON TECHNIQUE: During intravenous contrast 75 cc Omnipaque [address] was performed from the skull base to the vertex. Reformatting was performed in 2-D and 3-D. FINDINGS: The distal internal carotid arteries including the intracavernous carotid arteries are normal. The vertebrobasilar junction and basilar artery are normal. There is no evidence of intracranial aneurysm, vascular malformation or branch occlusion.. IMPRESSION: CT angiography of the skull base and [place] is within normal limits. Examination interpreted at [facility] Dictated by: Electronically Signed by: Deejay Barroso Electronically Signed on: 11/08/2017 7:23 AM BMP Collected: 11/07/2017 Status: F Source: JONES 5:38 AM [facility] REPOSITORY TYPE CODE TESTS RESULT OUT OF REFERENCE UNITS RANGE LAB 3137540(LO 136-144 mmol/L INC) Sodium 141 LAB 8687531(LO 3.4-5.1 mmol/L INC) Potassium 3.9 LAB 8963087(LO 98-107 mmol/L INC) Chloride 102 LAB 9475815(LO 22-32 mmol/L INC) CO2 28 LAB 0627102(LO 70-100 mg/dL INC) Glucose High 101 LAB 0273585(LO 8-26 mg/dL INC) BUN 14 LAB 0811128(LO 0.60-1.30 mg/dL INC) Creatinine 0.93 LAB 7418881(LO 8.1-10.1 mg/dL INC) Calcium 9.2 LAB 798610(USHA 5.0-19.0 mmol/L NC) Anion Gap 11.0 LAB 337844(USHA mOsm/kg NC) Osmolality-Calc 282 LAB 488250(USHA NC) Bun/CretRatio 15.1 ZLIPID Collected: 11/07/2017 Status: F Source: [facility]ERT 5:38 [facility] REPOSITORY TYPE CODE TESTS RESULT OUT OF REFERENCE UNITS RANGE LAB 1289003(LO 0-200 mg/dL INC) Cholesterol High 211 LAB 2729278(LO 0-149 mg/dL INC) Triglycerides High 231 Result Comment: Borderline High 150-199 mg/dL High >199 mg/dL LAB 1749623(LOINC) mg/dL HDL Cholesterol 26 Result Comment: HDL Cholesterol mg/dL: LDL Cholesterol mg/dL: High Risk: < 40 <100 Optimal Low Risk: >60 100 - 129 Near or above Optimal 130 - 159 Borderline High >160 High LDL CALCULATED Collected: 11/07/2017 Status: F Source: ROBERT 5:38 [facility] REPOSITORY TYPE CODE TESTS RESULT OUT OF REFERENCE UNITS RANGE LAB 5756779(LO mg/dL INC) LDL Calculated 139 Result Comment: Calculated LDL is unreliable when Triglyceride result is greater than 400. TROPONINX Collected: 11/07/2017 Status: F Source: [facility]ERT 5:38 [facility] REPOSITORY TYPE CODE TESTS RESULT OUT OF REFERENCE UNITS RANGE LAB 8630646(USHA ng/mL NC) Troponin 0.03 Result Comment: <0.04 Normal 0.04 - 0.50 Possible cardiac damage >0.50 Consistent with cardiac damage AUTO DIFF Collected: 11/07/2017 Status: F Source: ROBERT 5:37 [facility] REPOSITORY TYPE CODE TESTS RESULT OUT OF REFERENCE UNITS RANGE LAB NEUT(LOINC 41.0-73.8 % ) Neutrophil% 59.3 LAB LYMP%(LOIN 17.0-44.0 % C) Lymph % 27.8 LAB MONO%(LOIN 5.3-12.5 % C) Wirt % 5.8 LAB EO%(LOINC) 0.7-6.5 % Eo% High 6.7 LAB BASO%(LOIN 0.0-2.4 % C) Baso% 0.4 LAB ANEUT(LOIN 1.8-7.5 x10E9/L C) Neutrophil 4.7 LAB ALYMP(LOIN 1.1-3.5 x10E9/L C) Lymphocyte 2.2 LAB AMONO(LOIN 0.3-1.0 x10E9/L C) Monocyte 0.5 LAB AEO(LOINC) 0.0-0.5 x10E9/L Eosinophil 0.5 LAB ABASO(LOIN 0.0-0.2 x10E9/L C) Basophil 0.0 ZCBCD Collected: 11/07/2017 Status: F Source: [facility]ERT 5:37 AM [facility] REPOSITORY TYPE CODE TESTS RESULT OUT OF REFERENCE UNITS RANGE LAB 8997990(LO 4.3-10.5 x10E9/L INC) WBC 7.9 LAB 8706991(LO 4.18-5.87 x10E12/L INC) RBC 4.55 LAB 6989164(LO 13.4-17.5 g/dL INC) Hemoglobin 13.6 LAB 7599260(LO 37.5-49.2 % INC) Hematocrit 41.4 LAB MCV(LOINC) 80.0-100.0 fL MCV 91.0 LAB MCH(LOINC) 26.5-33.0 pg MCH 29.9 LAB MCHC(LOINC 32.6-36.0 g/dL ) MCHC 32.8 LAB 7903068(LO 144-400 x10E9/L INC) Platelet 239 LAB 386120(USHA 7.2-10.3 fL NC) Mean Plt Vol 8.4 LAB 917665(USHA 11.4-16.0 % NC) RDW High 16.6 TROPONINX Collected: 11/06/2017 Status: F Source: [facility]ERT 11:55 PM [facility] REPOSITORY Order Comment: Order for TroponinX created by Brandt Squires. TYPE CODE TESTS RESULT OUT OF REFERENCE UNITS RANGE LAB 6029218(USHA ng/mL NC) Troponin 0.03 Result Comment: <0.04 Normal 0.04 - 0.50 Possible cardiac damage >0.50 Consistent with cardiac damage TROPONINX Collected: 11/06/2017 Status: F Source: [facility] 6:38 PM [facility] REPOSITORY TYPE CODE TESTS RESULT OUT OF REFERENCE UNITS RANGE LAB 1012859(USHA ng/mL NC) Troponin 0.03 Result Comment: <0.04 Normal 0.04 - 0.50 Possible cardiac damage >0.50 Consistent with cardiac damage CT/CERVICAL WITHOUT Observed: 11/06/2017 Status: F Source: [facility] 3:29 PM [facility] REPOSITORY Patient Name: MAXX KNOTT STUDY: CT/CERVICAL WITHOUT; 11/06/2017 2:53 pm INDICATION: pain. Tripped over Road, fell on stoma. Chest pain. Patient on Plavix. COMPARISON: 10/03/2017 CT ACCESSION NUMBER(S): [id number] ORDERING CLINICIAN: BIJAN VAN TECHNIQUE: Axial CT images of the cervical spine are obtained. Axial, coronal and sagittal reconstructions are provided for review. FINDINGS: The posterior longitudinal ligament as block like ossification fusing the C5-C7 vertebral bodies posteriorly.. Fractures: There is no evidence for an acute fracture of the cervical spine. Vertebral Alignment: Within normal limits. Craniocervical junction: No mass the foramen magnum is noted. The atlanto odontoid articulation has moderate degenerative changes. C2-3: The left lateral recess and neural foramen are severely stenosed by uncovertebral spurring and left-sided disc protrusion. The right neural foramen is mildly stenosed. C3-4: Broad disc bulge stenoses the spinal canal, flattening the ventral cord. The lateral recesses and foramina are mildly to moderately stenosed by disc bulge and uncovertebral spurring more so on the right. C4-5: The neural foramina, lateral recesses and to lesser degree spinal canal are severely stenosed secondary to uncovertebral spurring, facet hypertrophy and disc bulge with more focal protrusion to the right. There is cord flattening. The posterior longitudinal ossification further stenosis the right lateral recess and spinal canal. C5-6: The central C5 and C6 spinal canal are severely stenosed by the thickened ossified posterior longitudinal ligament. The neural foramina are mildly stenosed by uncovertebral spurring and disc bulge more so on the left. C6-7: The central spinal canal is moderately to severely stenosed with cord deformity and compression secondary to block like ossification of posterior longitudinal ligament and broad disc bulge. C7-T1: No disc protrusion or stenosis is noted. T1-2 and T2-3: No disc protrusions or stenoses are noted. There are block like ossifications of the anterior longitudinal ligament as well from C5-C7 fusing the anterior vertebral bodies. Block like ossification anterior to T1 has a sclerotic articulation at C7-T1 and T1- 2 with vacuum phenomena at C7-T1. Prevertebral/Paraspinal Soft Tissues: The common carotid bifurcations have focal atherosclerotic calcifications bilaterally. The left submandibular gland has a 1-2 mm calcification without ductal dilatation. The maxillary sinuses have small amounts of layering fluid mucous with the mucosal thickening. IMPRESSION: 1. 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 2. Additional degenerative changes are present elsewhere as noted. 3. No fractures or subluxations are noted. 4. Left submandibular calcification consistent with nonobstructive stone. 5. Common carotid bifurcation atherosclerosis. Dictated by: Electronically Signed by: Charli Larose Electronically Signed on: 11/06/2017 3:[address]/RECON LUMBAR SP Observed: 11/06/2017 Status: F Source: JONES W/O 2:14 PM [facility] REPOSITORY Patient Name: MAXX KNOTT STUDY: CT/RECON LUMBAR SP W/O; 11/06/2017 12:44 pm INDICATION: FALL. Injury. Pain COMPARISON: None. ACCESSION NUMBER(S): [id number] ORDERING CLINICIAN: MARY VILLAFUERTE TECHNIQUE: Reconstructed sagittal axial and images viewed in bone windows the patient's recent abdomen and pelvis CT. Reconstructions coned to the lumbar spine at 2 mm intervals. FINDINGS: Degenerative narrowing of the disc results in a slight retrolisthesis at the L2-L3 and L3-L4 levels. Sagittal alignment is otherwise normal. All vertebral bodies are maintained in height without convincing evidence for vertebral body fracture. The posterior elements appear intact with intact neural arches. There is significant facet arthrosis at L4-L5 and more mild facet arthrosis at L5-S1. In the lower thoracic spine and at the L1-L2 level there is no significant lumbar canal or foraminal crowding. At L2-L3, there is annular bulge of the disc and disc narrowing. Loss of foraminal height results in mild crowding of right neural foramen. Loss of foraminal height and disc osteophyte complex results in moderate to severe crowding of the left neural foramen. At L3-L4, disc osteophyte complex and some loss of foraminal height results in moderate crowding of the left neural foramen. There is mild crowding of right neural foramen. At L4-L5 there is severe degenerative narrowing of the disc with discogenic endplate sclerosis and vacuum disc. The combination of loss foraminal height and disc osteophyte complex results in severe crowding of the right neural foramen and mild crowding of the left neural foramen. No significant stenosis of the central canal. At L5-S1, there is severe degenerative narrowing of the disc resulting in vacuum disc. Loss foraminal height and disc osteophyte complex results in mild crowding of the left neural foramen and severe crowding of the right neural foramen. No significant stenosis of the central lumbar canal. IMPRESSION: There is significant multilevel degenerative change. There is, however, no convincing evidence for acute fracture or subluxation. Dictated by: Electronically Signed by: Abhay Sharpe Electronically Signed on: 11/06/2017 2:[address]/ABDOMEN/PELVIS WITH Observed: 11/06/2017 Status: F Source: [place] 11:52 AM [facility] REPOSITORY Patient Name: MAXX KNOTT STUDY: CT/ABDOMEN/PELVIS WITH; 11/06/2017 11:02 am INDICATION: IV Only;. Information obtained by technologist: Patient tripped and fell on stoma. Pain COMPARISON: 08/01/2017 ACCESSION NUMBER(S): [id number] ORDERING CLINICIAN: BIJAN VAN TECHNIQUE: CT of the abdomen and pelvis was performed. Standard contiguous axial images were obtained at 3 mm slice thickness through the abdomen and pelvis. Coronal and sagittal reconstructions at 3 mm slice thickness were performed. Performed following the intravenous administration of 100 mL of Omnipaque 350. FINDINGS: LOWER CHEST: Unremarkable. ABDOMEN: LIVER: Unremarkable. BILE DUCTS: Not dilated. GALLBLADDER: Unremarkable. PANCREAS: Unremarkable. SPLEEN: Normal in size. ADRENAL GLANDS: Normal right adrenal gland. Stable nonspecific thickening of the left adrenal. KIDNEYS AND URETERS: Normal in size. There are 2 left renal hypodensities measured up to 27 x 21 mm which are similar to the prior examination. These do not meet the criteria of simple cysts and likely represent cysts with internal debris. No hydronephrosis or renal calculi PELVIS: BLADDER: Mild bladder wall thickening.. REPRODUCTIVE ORGANS: Enlarged prostate measured at 6 cm in diameter.. BOWEL: Right-sided stoma with a peristomal hernia containing loops of intestine but with no evidence of incarceration. Diverticulosis of the sigmoid colon. Stomach and intestine are otherwise unremarkable. Appendix is not identified.. VESSELS: 3.1 cm fusiform aneurysmal dilatation of the infrarenal aorta is stable. IVC is normal in caliber. PERITONEUM/RETROPERITONEUM/LYMPH NODES: No abdominal or pelvic lymphadenopathy.. No free fluid or free air. No mesenteric masses. BONES AND ABDOMINAL WALL: Right-sided stoma. Degenerative disc disease in the lumbar spine. No suspicious bone lesions.. IMPRESSION: 1. No CT evidence of acute process. 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 No fluid collections or hematoma formation. 2. No free fluid or free air. 3. Enlarged prostate. 4. Diverticulosis of the sigmoid colon but with no signs of acute diverticulitis. Dictated by: Electronically Signed by: Danelle Scruggs Electronically Signed on: 11/06/2017 11:52 AM LACTIC ACID Collected: 11/06/2017 Status: F Source: [place] 11:39 AM [facility] REPOSITORY TYPE CODE TESTS RESULT OUT OF REFERENCE UNITS RANGE LAB 2162001(USHA 0.5-2.2 mmol/L NC) Lactic Acid 1.3 CT/HEAD WITHOUT Observed: 11/06/2017 Status: F Source: [place] 10:09 AM [facility] REPOSITORY Patient Name: MAXX KNOTT STUDY: CT/HEAD WITHOUT; 11/06/2017 9:55 am INDICATION: fall. COMPARISON: 10/03/2017 ACCESSION NUMBER(S): [id number] ORDERING CLINICIAN: BIJAN VAN TECHNIQUE: Noncontrast axial CT scan of head was performed. Angled reformats in brain and bone windows were generated. The images were reviewed in bone, brain, blood and soft tissue windows. FINDINGS: BRAIN PARENCHYMA: Periventricular and subcortical white matter changes are present. No masses are seen. No mass effect. No acute cortical infarct or mass effect is seen. HEMORRHAGE: There is no evidence for hemorrhage. VENTRICLES and EXTRA-AXIAL SPACES: The ventricles, sulci and cisterns are prominent suggesting volume loss. INTRACRANIAL VESSELS: Atherosclerotic calcification. EXTRACRANIAL SOFT TISSUES: Within normal limits. PARANASAL SINUSES/MASTOIDS: Within normal limits. CALVARIUM: No destructive lesion or depressed skull fracture. IMPRESSION: Diffuse volume loss and periventricular white matter changes, which given patient's age likely represent small vessel ischemic disease. No CT evidence of acute hemorrhage or acute cortical infarct. No evidence of displaced skull fracture. Dictated by: Electronically Signed by: Sushila Moy Electronically Signed on: 11/06/2017 10:09 AM AUTO DIFF Collected: 11/06/2017 Status: F Source: [place] 9:40 AM [facility] REPOSITORY TYPE CODE TESTS RESULT OUT OF REFERENCE UNITS RANGE LAB NEUT(LOINC 41.0-73.8 % ) Neutrophil% 69.7 LAB LYMP%(LOIN 17.0-44.0 % C) Lymph % 22.3 LAB MONO%(LOIN 5.3-12.5 % C) Low Wirt % 5.2 LAB EO%(LOINC) 0.7-6.5 % Eo% 2.4 LAB BASO%(LOIN 0.0-2.4 % C) Baso% 0.4 LAB ANEUT(LOIN 1.8-7.5 x10E9/L C) Neutrophil 6.1 LAB ALYMP(LOIN 1.1-3.5 x10E9/L C) Lymphocyte 1.9 LAB AMONO(LOIN 0.3-1.0 x10E9/L C) Monocyte 0.5 LAB AEO(LOINC) 0.0-0.5 x10E9/L Eosinophil 0.2 LAB ABASO(LOIN 0.0-0.2 x10E9/L C) Basophil 0.0 ZCBCD Collected: 11/06/2017 Status: F Source: [place] 9:40 AM [facility] REPOSITORY TYPE CODE TESTS RESULT OUT OF REFERENCE UNITS RANGE LAB [id number](LO 4.3-10.5 x10E9/L INC) WBC 8.7 LAB 6747283(LO 4.18-5.87 x10E12/L INC) RBC 4.72 LAB 4808764(LO 13.4-17.5 g/dL INC) Hemoglobin 14.3 LAB 6248162(LO 37.5-49.2 % INC) Hematocrit 42.9 LAB MCV(LOINC) 80.0-100.0 fL MCV 90.9 LAB MCH(LOINC) 26.5-33.0 pg MCH 30.3 LAB MCHC(LOINC 32.6-36.0 g/dL ) MCHC 33.3 LAB 0045640(LO 144-400 x10E9/L INC) Platelet 285 LAB 714748(USHA 7.2-10.3 fL NC) Mean Plt Vol 8.4 LAB 884237(USHA 11.4-16.0 % NC) RDW High 16.7 BMP Collected: 11/06/2017 Status: F Source: [place] 9:40 AM [facility] REPOSITORY TYPE CODE TESTS RESULT OUT OF REFERENCE UNITS RANGE LAB [id number](LO 136-144 mmol/L INC) Sodium 139 LAB 4351132(LO 3.4-5.1 mmol/L INC) Low Potassium 3.3 LAB 0226789(LO 98-107 mmol/L INC) Chloride 101 LAB 0578347(LO 22-32 mmol/L INC) CO2 23 LAB 0036065(LO 70-100 mg/dL INC) Glucose High 175 LAB 3842015(LO 8-26 mg/dL INC) BUN 15 LAB 6403902(LO 0.60-1.30 mg/dL INC) Creatinine 1.07 LAB 0397871(LO 8.1-10.1 mg/dL INC) Calcium 9.6 LAB 436553(USHA 5.0-19.0 mmol/L NC) Anion Gap 15.0 LAB 113610(USHA mOsm/kg NC) Osmolality-Calc 283 LAB 747015(USHA NC) Bun/CretRatio 14.0 EMERGENCY DEPARTMENT Observed: 11/05/2017 Status: F Source: [place] SUMMARY 11:55 AM [facility] REPOSITORY [facility] Medical Records Department [address] [place] [address] Emergency Department Summary 11/05/17 0853 MR#: [id number] Acct: [id number] Name: MAXX KNOTT Shekhar Rep #: [id number] : 1950 67 From: Bart Perry DO PCP: [facility] Status: REG ER - ER Visit Summary [...] Colostomy prolapse This note was generated with Ping [employer] dictation software. It may contain incorrect words, spelling, and punctuation that were not noted in review of the chart prior to signing ED Disposition - Plan for ED Patient: Disposition: Home or Assisted Living Chief Complaint: Abd Pain Diagnosis: Colostomy prolapse Instructions: ED Prolapse Rectal Referrals: [facility] [Primary Care Provider] - What to do if you have Problems For any increased pain, shortness of breath, bleeding, nausea or vomiting, chest pain, or any unexpected problems, contact your Primary Care Provider. Call [facility] ([phone]) or report to the closest Emergency Room. Call 911 if necessary. 11/05/17 1155 <Electronically signed by Bart Perry DO> Date Bart Perry DO Cosigner Signature (If Indicated): Date CC: [facility] ED DOC Observed: 11/04/2017 Status: UNK Source: [facility] 8:42 PM [facility] REPOSITORY This is a preliminary report only, as the practitioner review and authentication has not occurred. ED DOC Observed: 11/04/2017 Status: UNK Source: [facility] 8:42 PM [facility] PHYSICIAN ASSESSMENT RECORDS : FlexChartData Event Time: 11/04/2017 18:45 Status: Signed [facility] Maxx Knott [[id number]] Attending Physician / / 1950 Chart (V2b) Chart created at 11/04/2017 18:42 by Maxim Hendrix Chart closed at 11/04/2017 20:16 Entry in Emergency Department at 11/04/2017 17:59, departure at 11/04/2017 20:42 Patient Name: Maxx Knott Record Number: [id number] Date: 11/04/2017 18:42 Entered Department at: 11/04/2017 17:59 Patient Seen at: 11/04/2017 18:17 Historian: Patient PCP: DARIA (Radhames Triana) Chief Complaint:Fall from same level [...] to be reduced. He is following with [facility] PATIENT NAME: MAXX KNOTT [facility] [address] MEDICAL REC #: [id number] [place] [address] EMERGENCY DEPARTMENT CHART EMERGENCY DEPARTMENT PHYSICIAN [facility] and is supposed to be having a [...] Dry Psychological: Mood/Affect Normal Medical Decision Making [facility] PATIENT NAME: MAXX KNOTT Dr. [address] MEDICAL REC #: [id number] [place] [address] EMERGENCY DEPARTMENT CHART EMERGENCY DEPARTMENT PHYSICIAN After [...] his baseline. He again is following with [facility] for this. He is pain-free at this [...] bowel prolapse from colostomy Disposition: Discharged . MSE completed. I was the primary ED attending.. : Discharge Report Event Time: 11/04/2017 20:17 ===DISCHARGE REPORT=== : FlexChartData Event Time: 11/04/2017 18:45 [facility] REC #: [id number] [place] [address] EMERGENCY DEPARTMENT CHART EMERGENCY DEPARTMENT PHYSICIAN : [...] prescriptions filled. EKG and Radiology Results: A communication specialist or radiologist will review any EKG or radiology results provided by the ER doctor. We will contact you if the results in the final EKG or radiology reports require a change in treatment. Culture Results: Cultures may have been ordered during your ER visit. We will contact you if the culture results require a change in treatment. Referrals: [facility] PATIENT NAME: MAXX KNOTT [address] MEDICAL REC #: [id number] [place] [address] EMERGENCY DEPARTMENT CHART EMERGENCY DEPARTMENT PHYSICIAN Most [...] or concerning symptoms. Continue following closely with [facility] for management of your colostomy issues. REFERRAL [...] instruction sheet including a list of major [facility] PATIENT NAME: MAXX KNOTT [address] [place] MEDICAL REC #: [id number] [place] [address] EMERGENCY DEPARTMENT CHART EMERGENCY DEPARTMENT PHYSICIAN tests and procedures ordered during my visit. I will arrange for follow-up care as indicated by these instructions and referrals. This signed original will be kept in my medical record. Your signature below indicates consent for Case Management to contact [facility] in an effort to meet your ongoing healthcare needs. This will allow forcontinuity of care once you leave the Emergency Department. This exchange of informationwill include, but not be limited to, disclosure of your patient information and possible release of records. 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 On Plavix. Eviseration of bowel in colostomy bag Arrival Date: 11/04/2017 17:59 Triage Date: 11/04/2017 18:01 Mode of Arrival: *Privately Owned Vehicle [facility] PATIENT NAME: MAXX KNOTT [address] [place] MEDICAL REC #: [id number] [place] [address] EMERGENCY DEPARTMENT CHART EMERGENCY DEPARTMENT PHYSICIAN Transfer From: * Home WC: N Language: Guamanian Transport: Ambulatory/Walk In BED D46 In: 11/04/2017 18:06:02 11/04/2017 18:06:02 JIF D46 (Removed From) Out: 11/04/2017 20:42:40 11/04/2017 20:42:40 JLTA PROVIDERS MITCHELL SORENSON Provider Contact: 11/04/2017 18:11:43 [facility] End: DO Maxim Hendrix Provider Contact: 11/04/2017 18:17:26 EDS End: TRIAGE HISTORY ALLERGIES Allergic To: CRESTOR - Get Sick 11/04/2017 18:03 JIF Allergic To: Ramipril - Get Sick 11/04/2017 18:03 JIF Allergic To: Simvastatin - Nausea and Vomiting 11/04/2017 18:03 JIF Allergic To: ATORVASTATIN - Get Sick 11/04/2017 18:03 JIF Allergic To: MOXIFLOXACIN - Difficulty Breathing 11/04/2017 18:03 JIF Allergic To: VOLTAREN - Get Sick 11/04/2017 18:03 JIF [facility] PATIENT NAME: MAXX KNOTT [address] [place] MEDICAL REC #: [id number] [place] [address] EMERGENCY DEPARTMENT CHART EMERGENCY DEPARTMENT PHYSICIAN Allergic [...] thoughts of self harm. 11/04/2017 18:03 JIF [facility] PATIENT NAME: MAXX KNOTT [address] [place] MEDICAL REC #: [id number] [place] [id number] EMERGENCY DEPARTMENT CHART EMERGENCY DEPARTMENT PHYSICIAN Social History: Have you traveled in the past month? Where no 11/04/2017 18:03 [facility] IMMUNIZATIONS Immunization: *Not Applicable 11/04/2017 18:03 JIF [...] non-labored respers. Skin warm, dry. 11/04/2017 19:47 [facility] TREATMENT 11/04/2017 17:59 Trauma Time Activation - 3. Trauma Evaluation Called @ 1759 11/08/2017 11:07 [facility] 11/04/2017 18:31 Physician Call - called at 1822 11/04/2017 18:31 [facility] 11/04/2017 18:31 Physician Call - answered at 1830 11/04/2017 18:31 [facility] 11/04/2017 19:43 Hourly Rounding - Rounding 11/04/2017 19:44 [facility] Elimination/Toileting Y Position Comfortable Y Safe Environment Y Fall Risk Change N 11/04/2017 19:43 Patient Interaction - Allergy Band on Pt. 11/04/2017 19:44 [facility] 11/04/2017 19:43 Patient Interaction - Call light [facility] PATIENT NAME: MAXX KNOTT [address] [place] MEDICAL REC #: [id number] [place] [address] EMERGENCY DEPARTMENT CHART EMERGENCY DEPARTMENT PHYSICIAN placed within reach. 11/04/2017 19:44 [facility] 11/04/2017 19:43 Patient Interaction - Introduce self to Patient. 11/04/2017 19:44 [facility] 11/04/2017 19:43 Patient Interaction - Name Band on Pt 11/04/2017 19:44 [facility] 11/04/2017 19:43 Primary DOC Guide - A. Patient History 11/04/2017 19:44 [facility] Primary History Source Patient Fabricio Exposure - [...] Geriatric (65+) Fall Risk Assessment 11/04/2017 19:44 [facility] STEADI Score Total 0 STEADI Fall Assessment Score of 4 or greater? No 11/04/2017 19:44 Primary DOC Guide - D. Psychosocial Assessment 11/04/2017 19:44 [facility] Over the Last 2 weeks, how often [...] a partner from a previous or current [facility] PATIENT NAME: MAXX KNOTT [address] [place] MEDICAL REC #: [id number] [place] [address] EMERGENCY DEPARTMENT CHART EMERGENCY DEPARTMENT PHYSICIAN relationship [...] #: 1 Rate: ml/hr Location: hand left [facility] PATIENT NAME: NIKOSMARILUZYanelis Corrigan [address] [place] MEDICAL REC #: [id number] [place] [address] EMERGENCY DEPARTMENT CHART EMERGENCY DEPARTMENT PHYSICIAN Ndl Gauge: 20 # Attempts: 1 Notes: cath intact I AND O VITALS VS-ROUTINE Time: 11/04/2017 18:01 B/P: 183/77 - Left Upper Arm - Sitting - Machine Pulse: 80 - Child Care Resp: 18 Sa02: 94 Room Air Temp: 98.10 F - Oral 11/04/2017 18:03 JIF VS-Pain Time: 11/04/2017 18:01 11/04/2017 18:03 JIF VS-GCS Time: 11/04/2017 18:01 Visual: 4 Verbal: 5 Motor: 6 GCS Total: 11/04/2017 18:03 JIF VS-HT/WT Time: 11/04/2017 18:01 [...] 4 Verbal: 5 Motor: 6 GCS Total: 11/04/2017 20:40 JLTA VS-HT/WT Time: 11/04/2017 20:39 11/04/2017 20:40 JLTA VS-Visual Time: 11/04/2017 20:39 11/04/2017 20:40 JLTA VS-FHT Time: 11/04/2017 20:39 11/04/2017 20:40 JLTA VS-Notes Time: 11/04/2017 20:39 [id number] 11/04/2017 20:40 JLTA ORDERS Discharge patient 11/04/2017 20:18 N/A [facility] PATIENT NAME: MAXX KNOTT [address] [place] MEDICAL REC #: [id number] [place] [address] EMERGENCY DEPARTMENT CHART EMERGENCY DEPARTMENT PHYSICIAN Ordered: [...] 20:17 Admit Physician: . Other PRESCRIPTIONS CHARGES [facility] PATIENT NAME: LOCKER ROOM ATTENDANTMAXX Dr. MEDICAL REC #: [id number] [place] [address] EMERGENCY DEPARTMENT CHART EMERGENCY DEPARTMENT PHYSICIAN SIGNATURE Maxim Hendrix DO [facility] PONCHO SORENSON RN [facility] PATIENT NAME: LOCKER ROOM ATTENDANTMAXX Dr. MEDICAL REC #: [id number] [place] [address] EMERGENCY DEPARTMENT CHART EMERGENCY DEPARTMENT PHYSICIAN ED NOTE Observed: 11/04/2017 Status: COMPLETED Source: [place] 12:14 PM [facility] REPOSITORY HNO ID: [id number] Author: Vickie KingRn) MITCHELL Griffith Service: Emergency Medicine Author Type: Registered Nurse Type: ED Notes Filed: 11/04/2017 12:15 PM Note Text: Educated pt on ways to help reduce stoma if/when it becomes prolapsed. Pt verbalized understanding and demonstrated how to reduce stoma. ED PROV NOTE Observed: 11/04/2017 Status: COMPLETED Source: [place] 11:40 AM [facility] REPOSITORY HNO ID: [id number] Author: Cassi Solano MD Service: Emergency Medicine [...] (abdominal aortic aneurysm) without rupture ([facility]) 05/13/[address] a/p - CAD (coronary artery disease) 2005 CAD s/p CABG x3 (FFQR-HKZ-xlmsuc, ENV-PGW-rjttws, YAH-VU0-zmvexvjp) (2006 at [place]) - COPD (chronic obstructive pulmonary disease) ([facility]) - Current every day smoker PT SMOKES A PIPE - Diverticulitis Perforated Diverticulitis - Diverticulitis of sigmoid colon 05/15/2017 Added automatically from request for surgery [id number] - Hx of CABG - Pacemaker 02/16/2017 s/p PPM () 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 - Peritonitis ([facility]) PAST SURGICAL HISTORY Procedure Laterality [...] [Amiloride-Hyd* Swelling - Moxifloxacin Swelling - Other Lake-3s Unknown brelinta - Ramipril Swelling Other reaction(s): [...] ED NOTE Observed: 11/04/2017 Status: COMPLETED Source: [place] 11:30 AM [facility] REPOSITORY HNO ID: [id number] Author: Mine Wesley Service: Emergency Medicine Author Type: Assistant Infant Teacher and Media Account Executive Type: ED Notes Filed: 11/04/2017 11:35 AM Note Text: Labs drawn but held ED NOTE Observed: 11/04/2017 Status: COMPLETED Source: [place] 11:26 AM [facility] REPOSITORY HNO ID: [id number] Author: Vickie KingRn) MITCHELL Griffith Service: Emergency Medicine Author Type: Registered Nurse Type: ED Notes Filed: 11/04/2017 11:27 AM Note Text: Reviewed and agree with traige note. Stoma is beefy red, tissue healthy. Pt diffusely tender around stoma site, no other concerns at this time. CONSULTATION Observed: 11/03/2017 Status: F Source: [place] 5:02 PM [facility] REPOSITORY [facility] Medical Records Department [address] [place] [address] Consultation 11/01/171947 MR#: [id number] Acct: [id number] Name: MAXX KNOTT Shekhar Rep #: [id number] : 1950 67 From: Mariza Redd MD PCP: [facility] [place] Status: DEP ER Y Location: ED - [...] suicidal ideation - admission in past at [facility] AAA - 3.1 cm medical noncompliance Past Surgical History: appendectomy Transverse loop colostomy 07/25/16, [facility] [place] CABG PPM implantation CAD stent placement Medications: [...] MD Cosigner Signature (if applicable): Date CC: [facility] Signed EMERGENCY DEPARTMENT Observed: 11/02/2017 Status: F Source: [place] SUMMARY 8:04 PM [facility] REPOSITORY [facility] Medical Records Department [address] [place] [address] Emergency Department Summary 11/02/17 0539 MR#: [id number] Acct: [id number] Name: MAXX KNOTT Rep #: [id number] : 1950 67 From: Milana Gaytan MD PCP: [facility] [place] Status: DEP ER - ER Visit Summary [...] bag replacement This note was generated with Ping Communication dictation software. It may contain incorrect words, spelling, and punctuation that were not noted in review of the chart prior to signing ED Disposition - Plan for ED Patient: Chief Complaint: Other, Pain/Inj Referrals: [facility] [Primary Care Provider] - What to do if you have Problems For any increased pain, shortness of breath, bleeding, nausea or vomiting, chest pain, or any unexpected problems, contact your Primary Care Provider. Call [facility] ([phone]) or report to the closest Emergency Room. Call 911 if necessary. 11/02/172003 <Electronically signed by Milana Gaytan MD> Date Milana Gaytan MD Cosigner Signature (If Indicated): Date CC: [facility] DISCHARGE INSTRUCTION Observed: 11/02/2017 Status: F Source: [place] 8:04 PM [facility] REPOSITORY [facility] Medical Records Department [address] [place] [address] Discharge Instruction 11/02/17 0542 MR#: [id number] Acct: [id number] Name: MAXX KNOTT Rep #: [id number] : 1950 67 From: Milana Gaytan MD [place]CP[facility] [place] Status: DEP ER ED Disposition - Plan for ED Patient: Disposition: Home or Assisted Living Chief Complaint: Other, Pain/Inj Instructions: Discharge Instructions for Colostomy Referrals: [facility] [Primary Care Provider] - As Needed What to do if you have Problems For any increased pain, shortness of breath, bleeding, nausea or vomiting, chest pain, or any unexpected problems, contact your Primary Care Provider. Call [facility] ([phone]) or report to the closest Emergency Room. Call 911 if necessary. 11/02/172003 <Electronically signed by Milana Gaytan MD> Date Milana Gaytan MD Cosigner Signature (If Indicated): Date CC: [facility] EMERGENCY DEPARTMENT Observed: 11/02/2017 Status: F Source: [place] SUMMARY 1:20 AM [facility] REPOSITORY [facility] Medical Records Department [address] [place] [address] Emergency Department Summary 11/01/17 1628 MR#: [id number] Acct: [id number] Name: MAXX KNOTT Rep #: [id number] : 1950 67 From: Gabriel Mandujano MD PCP: [place] Status: DEP ER - ER Visit Summary Date of Service: 11/01/17 Chief Complaint: Prolapse of colostomy History of Present Illness: The patient is a 67 M who goes to the [facility]. He reports he had a colostomy placed approximately 1 year ago at [facility] for diverticulitis. He does not remember the [...] Colostomy prolapse. This note was generated with Ping Communication dictation software. It may contain incorrect words, spelling, and punctuation that were not noted in review of the chart prior to signing ED Disposition - Plan for ED Patient: Chief Complaint: General Illness Instructions: Discharge Instructions for Colostomy Prescriptions: Hydrocodone Bitart/Apap 5-325 [Palisade 5MG-325MG] 1 tablet PO Q6H PRN PRN 3 Days #10 tablet PRN Reason: Pain Additional Instructions: Follow-up with your surgeon as soon as possible. What to do if you have Problems For any increased pain, shortness of breath, bleeding, nausea or vomiting, chest pain, or any unexpected problems, contact your Primary Care Provider. Call [facility] ([phone]) or report to the closest Emergency Room. Call 911 if necessary. 11/02/17 0120 <Electronically signed by Gabriel Mandujano MD> Date Gabriel Mandujano MD Cosigner Signature (If Indicated): Date CC: [facility] CBC W/DIFF, AUTOMATED Collected: 11/01/2017 Status: F Source: [place] 3:43 PM [facility] REPOSITORY TYPE CODE TESTS RESULT OUT [...] Lymph 1.50 Performed By: #### L100.0100 #### [facility] [address] [place], [address] BASIC METABOLIC Collected: 11/01/2017 Status: F Source: [place] PROFILE ([facility]) 3:43 PM [facility] REPOSITORY TYPE CODE TESTS RESULT OUT [...] GAP 6 Performed By: #### L500.2500 #### [facility] [address] [place], [address] LACTIC ACID Collected: 11/01/2017 Status: F Source: [place] 3:43 PM [facility] REPOSITORY Order Comment: Yes/No query for Sepsis Lactate Rule Y TYPE CODE TESTS RESULT OUT OF RANGE REFERENCE UNITS LAB L503.6005 0.4-2.0 mmol/L Normal LACTIC ACID 1.4 Performed By: #### L503.6005 #### [facility] [address] [place], [address] PROGRESS Observed: 10/30/2017 Status: COMPLETED Source: [place] 8:40 AM [facility] REPOSITORY HNO ID: [id number] Author: Eligio (Rn) MITCHELL Banks Service: (none) Author Type: Registered Nurse Type: Progress Notes Filed: 11/23/2017 8:55 AM Note Text: [facility] EMERGENCY DEPARTMENT FOLLOW UP INITIAL CONTACT Provider Action/FYI: Unable to reach SUMMARY: -Patient discharged from [facility] ED on 10/27/17. -Follow up [...] in July. Given his history of an FL with CABG, cardiac enzymes, BNP, CBC were [...] Course as of Oct 27 1714 Jerry (Juan) Ana's Documentation Sat Oct 27, [id number] likely [...] 67 male history COPD, CAD status post [place] with CABG in 2005, divergent colostomy. Here [...] PGY-1 Jerry (Res) MD Ana Resident 10/27/17 6657 ? Attending Note I evaluated the patient [...] Discharged in stable condition. ? Signature: Woo Valodvinos MD Date: 10/28/2017 Time: 1:52 PM Eligio Banks RN CNPTOUTREA Observed: 10/30/2017 Status: COMPLETED Source: [place] 12:00 AM [facility] REPOSITORY Patient Outreach (INTMMN) MAXX KNOTT ([id number]) 1950 M Date Time Provider Department 10/30/17 ELIGIO BANKS (RN) INTMMN During your visit today, we recorded the following information about you: Eligio Banks RN, RN 11/23/2017 8:55 AM Signed [facility] DEPARTMENT FOLLOW UP INITIAL CONTACT Provider Action/FYI: Unable to reach SUMMARY: -Patient discharged from [facility] ED on 10/27/17. -Follow up [...] in July. Given his history of an FL with CABG, cardiac enzymes, BNP, CBC were [...] Course as of Oct 27 1714 Jerry (Juan) Ana's Documentation Sat Oct 27, [id number] likely [...] 67 male history COPD, CAD status post [place] with CABG in 2005, divergent colostomy. Here [...] PGY-1 Jerry (Res) MD Ana Resident 10/27/17 5671 ? 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 Malnutrition of mild degree ([facility]) [E44.1] INVALID FOR* Priority: L More... CHF (congestive heart failure) ([facility]) [I50.9] INVALID FOR* Diverticulitis of [...] EMERGENCY DEPARTMENT Observed: 10/27/2017 Status: F Source: [place] SUMMARY 11:35 PM [facility] REPOSITORY [facility] Medical Records Department [address] [facility] [place] [address] Emergency Department Summary 10/20/17 1037 MR#: [id number] Acct: [id number] Name: NIKOSMAXX B Rep #: [id number] : 1950 67 From: Chele Smith MD PCP: [place], [place] Status: DEP ER - ER Visit [...] colostomy site This note was generated with [employer] dictation software. It may contain incorrect words, spelling, and punctuation that were not noted in review of the chart prior to signing ED Disposition - Plan for ED Patient: Chief Complaint: Abd Pain Referrals: [facility] [Primary Care Provider] - What to do if you have Problems For any increased pain, shortness of breath, bleeding, nausea or vomiting, chest pain, or any unexpected problems, contact your Primary Care Provider. Call [facility] ([phone]) or report to the closest Emergency Room. Call 911 if necessary. 10/27/17 6795 <Electronically signed by Chele Smith MD> Date Chele Smith MD Cosigner Signature (If Indicated): Date CC: [facility] Hospital DISCHARGE INSTRUCTION Observed: 10/27/2017 Status: F Source: [place] 11:35 PM [facility] REPOSITORY [facility] Medical Records Department [address] [place] [address] Discharge Instruction 10/20/17 1357 MR#: [id number] Acct: [id number] Name: MAXX KNOTT Rep #: [id number] : 1950 67 From: Chele Smith MD PCP: [facility] [place] Status: DEP ER ED Disposition - Plan for ED Patient: Disposition: Home or Assisted Living Chief Complaint: Abd Pain Referrals: [facility] [Primary Care Provider] - 1-2 Days if [...] your Primary Care Provider. Call [facility] ([phone]) or report to the closest Emergency Room. Call 911 if necessary. 10/27/17 8097 <Electronically signed by Chele Smith MD> Date Chele Smith MD Cosigner Signature (If Indicated): Date CC: [facility] ED NOTE Observed: 10/27/2017 Status: COMPLETED Source: [place] 9:44 PM [facility] REPOSITORY HNO ID: [id number] Author: Anjana KingRn) MITCHELL Donis Service: Emergency Medicine Author Type: Registered Nurse Type: ED Notes Filed: 10/27/2017 9:45 PM Note Text: Pt returned, AANDOx3, NAD, no pain. Pt IV removed, given DC instructions and all questions answered ED NOTE Observed: 10/27/2017 Status: COMPLETED Source: [place] 9:15 PM [facility] REPOSITORY HNO ID: [id number] Author: Anjana KingRn) Jewels, MITCHELL Service: Emergency Medicine Author Type: Registered Nurse Type: ED Notes Filed: 10/27/2017 9:44 PM Note Text: Pt left with IV in arm, pt called and asked to come back to have it removed ED NOTE Observed: 10/27/2017 Status: COMPLETED Source: [place] 7:55 PM [facility] REPOSITORY HNO ID: [id number] Author: Anjana KingRn) Jewels, RN Service: Emergency Medicine Author Type: Registered Nurse Type: ED Notes Filed: 10/27/2017 7:55 PM Note Text: Pt asking for food, no NV, informed pt waiting on xray results PROGRESS Observed: 10/27/2017 Status: COMPLETED Source: [place] 7:35 PM [facility] REPOSITORY HNO ID: [id number] Author: Deejay (Rt) Laurel Velasco Service: Radiology Author Type: Media Account Executive Type: Progress Notes Filed: 10/27/2017 7:36 PM [...] 3V KUB Observed: 10/27/2017 Status: F Source: [place] W/[place] 7:23 PM [facility] REPOSITORY * * *Final Report* * * [...] radiographic evidence of an acute abdominal process. Geriatric Physical Therapist: MAGI Transcribe Date/Time: Oct 27 2017 7:50P Dictated by : JOVANI SONI MD This examination was interpreted and the report reviewed and electronically signed by: RICH EWING MD on Oct 27 2017 8:21PM EST [id number] ED NOTE Observed: 10/27/2017 Status: COMPLETED Source: [place] 7:20 PM [facility] REPOSITORY HNO ID: [id number] Author: Kimberli KingRn) MITCHELL Mendoza Service: Emergency Medicine Author Type: Registered Nurse Type: ED Notes Filed: 10/27/2017 7:20 PM Note Text: Report to MITCHELL Malik. ED NOTE Observed: 10/27/2017 Status: COMPLETED Source: [place] 7:15 PM [facility] REPOSITORY HNO ID: [id number] Author: Anjana Toth) MITCHELL Donis Service: Emergency Medicine Author Type: Registered Nurse Type: ED Notes Filed: 10/27/2017 7:21 PM Note Text: Xray at bedside CONSULT Observed: 10/27/2017 Status: COMPLETED Source: [place] 7:11 PM [facility] REPOSITORY HNO ID: [id number] Author: Lemuel Ewing (Res) Chinmay Service: Colorectal Author Type: Resident Type: Consults Filed: 10/27/2017 7:23 PM Note Text: Colorectal Surgery Consult Note SERVICE DATE: October 27, 2017 SERVICE TIME: 7:11 PM PRIMARY CARE PHYSICIAN: Maxx Knott Colorectal Surgeon score caller: Dr Weston Subjective Reason for call per [...] No fever no chills no CP no SCHWARZ no SOB Family history: no history for IBD or Colorectal Cancer or polyposis Bowel habits: colostomy Social History: current smoker, occasional alcohol FUNCTIONAL STATUS: Independent PAST MEDICAL HISTORY Diagnosis Date - AAA (abdominal aortic aneurysm) without rupture ([facility]) 05/13/[address] a/p - CAD (coronary artery disease) 2005 CAD s/p CABG x3 (TRWL-POL-ibtivm, YHJ-YLY-eqjwmt, SKZ-QN6-gwjcytdf) (2006 at [place]) - COPD (chronic obstructive pulmonary disease) (HCC) - Current every day smoker PT SMOKES A PIPE - Diverticulitis Perforated Diverticulitis - Diverticulitis of sigmoid colon 05/15/2017 Added automatically from request for surgery [id number] - Hx of CABG - Pacemaker 02/16/2017 [...] [Amiloride-Hyd* Swelling - Moxifloxacin Swelling - Other Lake-3s Unknown brelinta - Ramipril Swelling Other reaction(s): [...] today's visit: Most recent labs Assessment/Plan Maxx Alvarezman67 year old male with no current active abdominal complaints, colostomy looks the best I have seen and is reducible spontaneously. -- no urgent current intervention from a surgical stand point -- will discuss [place] [id number]/ [phone] October 27, 2017 7:11 PM (between 6.00 pm and 6.00 am, , please call the colorectal surgery bridge contractor pager for any questions [phone] ) ED NOTE Observed: 10/27/2017 Status: COMPLETED Source: [place] 5:08 PM [facility] REPOSITORY HNO ID: [id number] Author: Mata (Res) Randy Service: Emergency Medicine Author Type: Resident Type: ED Notes Filed: 10/27/2017 11:31 PM Note Text: ED Resident Continuation of Care Note October 27, 2017 Maxx Knott was endorsed to me by Dr. Perez. 67 year old male PMHx diverting loop colostomy, CAD ([place] 2006, CABG), and COPD presenting for chest [...] ED NOTE Observed: 10/27/2017 Status: COMPLETED Source: [place] 5:07 PM [facility] REPOSITORY HNO ID: [id number] Author: Kimberli (Rn) MITCHELL Mendoza Service: Emergency Medicine Author Type: Registered Nurse Type: ED Notes Filed: 10/27/2017 5:07 PM Note Text: Colorectal at bedside. ED NOTE Observed: 10/27/2017 Status: COMPLETED Source: [place] 4:57 PM [facility] REPOSITORY HNO ID: [id number] Author: Dwight Flanagan (Medic) Service: Emergency Medicine Author Type: Assistant Infant Teacher and Media Account Executive Type: ED Notes Filed: 10/27/2017 4:57 PM Note Text: Labs were drawn and sent. CBC AND DIFFERENTIAL Collected: 10/27/2017 Status: F Source: [place] 4:55 PM [facility] REPOSITORY TYPE CODE TESTS RESULT [...] k/uL Abs Lymph 1.87 LAB AMONO % Wirt% 6.8 LAB AAMONO <0.87 k/uL Abs Wirt 0.54 LAB AEOS % Eosin% 1.4 LAB AAEOS <0.46 k/uL Abs Eosin 0.11 LAB ABASO % Baso% 0.5 LAB AABASO <0.11 k/uL Abs Baso 0.04 LAB AUNRBC 0 /100 WBC NRBCs 0.0 LAB ABNRBC <0.01 k/uL Absolute nRBC <0.01 LAB DTYP DTYPE Auto Diff Performed By: #### CBCDIF, CMP, LIPA, CKCKMB, NTBNP, BRAYAN #### [facility] [address] [place] [id number] COMP METABOLIC PANEL Collected: 10/27/2017 Status: F Source: [place] 4:55 PM [facility] REPOSITORY TYPE CODE TESTS RESULT [...] CBCDIF, CMP, LIPA, CKCKMB, NTBNP, BRAYAN #### [facility] [address] [place] [address] LIPASE Collected: 10/27/2017 Status: F Source: [place] 4:55 PM [facility] REPOSITORY TYPE CODE TESTS RESULT OUT OF REFERENCE UNITS RANGE LAB LIPA 16-61 U/L Low Lipase 13 Performed By: #### CBCDIF, CMP, LIPA, CKCKMB, NTBNP, BRAYAN #### [facility] [address] [place] [id number] CK, TOTAL AND CKMB Collected: 10/27/2017 Status: F Source: [place] 4:55 PM [facility] REPOSITORY TYPE CODE TESTS RESULT [...] CBCDIF, CMP, LIPA, CKCKMB, NTBNP, BRAYAN #### [place] [address] NT PRO BNP Collected: 10/27/2017 Status: F Source: [place] 4:55 [facility] REPOSITORY TYPE CODE TESTS RESULT OUT OF REFERENCE UNITS RANGE LAB PBNP <125 pg/mL High PRO B Natr 832 Peptide Performed By: #### CBCDIF, CMP, LIPA, CKCKMB, NTBNP, BRAYAN #### [place] [id number] TROPONIN T Collected: 10/27/2017 Status: F Source: [place] 4:55 [facility] REPOSITORY TYPE CODE TESTS RESULT OUT OF REFERENCE UNITS RANGE LAB TROPT 0.000-0.029 ng/mL Troponin T <0.010 Performed By: #### CBCDIF, CMP, LIPA, CKCKMB, NTBNP, BRAYAN #### [address] [address] PROGRESS Observed: 10/27/2017 Status: COMPLETED Source: [place] 4:36 PM [facility] REPOSITORY HNO ID: [id number] Author: Laurel West (Rt) Service: Radiology Author Type: Media Account Executive Type: Progress Notes Filed: 10/27/2017 4:36 PM [...] 1V FRONTAL Observed: 10/27/2017 Status: F Source: [facility] 4:35 PM [facility] REPOSITORY * * *Final Report* * * [...] calcifications in the aortic arch. Other: . Geriatric Physical Therapist: MAGI Transcribe Date/Time: Oct 27 2017 4:45P Dictated by : JOVANI SONI MD This examination was interpreted and the report reviewed and electronically signed by: RICH EWING MD on Oct 27 2017 7:50PM EST [id number] ED PROV NOTE Observed: 10/27/2017 Status: COMPLETED Source: [place] 4:30 PM [facility] REPOSITORY O ID: [id number] Author: Woo Valdovinos MD Service: Emergency Medicine Author Type: Physician Type: ED Provider Notes Filed: 10/28/2017 1:55 PM Note Text: ED Provider Note Patient Name: Maxx Knott SERVICE DATE: 10/27/17 History Patient presents with: Ostomy Care Chest Pain Weakness Maxx Knott is a 67 year old male with a hx of CAD status post [place] with CABG in 2005, AAA, COPD, CHF [...] weak to walk. History provided by: Patient historic interpreter used: No PAST MEDICAL HISTORY Diagnosis Date - AAA (abdominal aortic aneurysm) without rupture ([facility]) 05/13/[address] a/p - CAD (coronary artery disease) 2005 CAD s/p CABG x3 (TWQA-ZUU-mmvjgt, ARN-FCQ-nbstdg, FDJ-BU6-uepbgjnp) (2006 at [place]) - COPD (chronic obstructive pulmonary disease) (HCC) - Current every day smoker PT SMOKES A PIPE - Diverticulitis Perforated Diverticulitis - Diverticulitis of sigmoid colon 05/15/2017 Added automatically from request for surgery [id number] - Hx of CABG - Pacemaker 02/16/2017 [...] [Amiloride-Hyd* Swelling - Moxifloxacin Swelling - Other Lake-3s Unknown brelinta - Ramipril Swelling Other reaction(s): [...] in July. Given his history of an FL with CABG, cardiac enzymes, BNP, CBC were [...] Course as of Oct 27 1714 Jerry Perez's Documentation Sat Oct 27, [id number] likely left known diaphragmatic hernia,possibly enlarged from previous. No acute consolidation, effusion or nicola pulmonary edema. XR CHEST 1V FRONTAL PORT 165 Colorectal to see the patient Clinical Impressions as of Oct 27 1714 Chest pain, unspecified type SOB (shortness of breath) Prolapsed, intestine Plan Patient care has been transferred to Dr. Padilla as of 5:18 PM . We discussed the patient's course, condition, and plan with all questions answered. SUMMARY: 67 male history COPD, CAD status post [place] with CABG in 2005, divergent colostomy. Here [...] Jerry Perez MD Emergency Medicine PGY-1 Jerry Perez MD Resident 06/30/18 1721 Attending Note I evaluated the patient and [...] Time: 1:52 PM Woo Valdovinos MD 10/28/17 1355 ED NOTE Observed: 10/27/2017 Status: COMPLETED Source: [place] 4:13 PM [facility] REPOSITORY HNO ID: [id number] Author: Fani Reed (Engineering Program Manager) REILLY Prado Service: Emergency Medicine Author Type: [...] ED NOTE Observed: 10/27/2017 Status: COMPLETED Source: [place] 4:00 PM [facility] REPOSITORY HNO ID: [id number] Author: Kimberli KingRn) MITCHELL Mendoza Service: Emergency [...] same time as chest pain. Placed on alarm security or surveillance monitor AND continuous sp02. ABC's intact, respirations even and unlabored. Skin acyanotic, warm and dry. Will notify MD of any acute changes. Side rails up x2, bed in lowest locked position, call light within reach, ID band on. 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 Denies any strenuous activity. ECG completed in intake. NAD, ABC's intact, AANDO, AMEZQUITA. EKG1 Observed: 10/27/2017 Status: F Source: [place] 3:35 PM [facility] REPOSITORY NAME : MAXX KNOTT PID : [id number] : 1950 Gender : Male Race : ORD : Procedure Date : Oct 27 2017 15:35:23 Edit Date : Nov 02 2017 04:59:34 Diagnosis:NORMAL SINUS RHYTHM POSSIBLE LEFT ATRIAL ENLARGEMENT POSSIBLE INFERIOR MYOCARDIAL INFARCTION , AGE UNDETERMINED LATERAL T WAVE ABNORMALITY ABNORMAL ECG NOTE: PLEASE SEE PHYSICIAN'S NOTE FROM E.D. VISIT Confirmed by BEATA ROCHA M.D. ([id number]), news assignment editor ONELIA MINA ([id number]) on 11/02/2017 4:59:27 AM Ventricular Rate : 93 BPM Atrial Rate : 93 BPM P-R Interval : 190 ms QRS Duration : 104 ms Q-T Interval : 358 ms QTC Calculation(Bezet) : 445 ms P Powderhorn : 66 degrees R Powderhorn : 49 degrees T Powderhorn : 27 degrees Test Reason : Location : 2 : ED [id number] Overread By : BEATA ROCHA M.D. Edited By : ONELIA MINA Referred By : , Acquired by : IKE LUNSFORD/ABDOMEN 1 VIEW Observed: 10/27/2017 Status: F Source: [place] 12:53 PM [facility] REPOSITORY Patient Name: MAXX KNOTT STUDY: RAD/ABDOMEN 1 VIEW; 10/27/2017 12:47 pm INDICATION: abd pain;. COMPARISON: None. ACCESSION NUMBER(S): [id number] ORDERING CLINICIAN: LUZ MARIA BADILLO FINDINGS: Nonspecific bowel gas pattern. There may be an ostomy in the right mid abdomen IMPRESSION: Nonspecific bowel gas pattern. Dictated by: Electronically Signed by: Ramiro Velasquez Electronically Signed on: 10/27/2017 12:53 PM RAD/CHEST - PORTABLE Observed: 10/27/2017 Status: F Source: [place] 12:28 PM [facility] REPOSITORY Patient Name: MAXX KNOTT STUDY: RAD/CHEST - PORTABLE; 10/27/2017 12:19 pm INDICATION: chest pain;. COMPARISON: 10/03/2017 ACCESSION NUMBER(S): [id number] ORDERING CLINICIAN: LUZ MARIA BADILLO FINDINGS: A single AP portable radiograph of the chest was obtained. Multiple cardiac monitoring leads are seen over the chest. Median sternotomy wires, surgical clips, left-sided pacing device. No focal infiltrate, pleural effusion or pneumothorax is identified. The cardiac silhouette is within normal limits for size. IMPRESSION: No focal infiltrate or pneumothorax is identified. Dictated by: Electronically Signed by: Guadalupe Giles Electronically Signed on: 10/27/2017 12:28 PM LACTIC ACID Collected: 10/27/2017 Status: F Source: [place] 12:04 PM [facility] REPOSITORY TYPE CODE TESTS RESULT OUT OF REFERENCE UNITS RANGE LAB [id number](USHA 0.5-2.2 mmol/L NC) Lactic Acid 1.5 CMP Collected: 10/27/2017 Status: F Source: [place] 12:04 PM [facility] REPOSITORY TYPE CODE TESTS RESULT OUT OF REFERENCE UNITS RANGE LAB 6481087(LO 136-144 mmol/L INC) Sodium 137 LAB 9047520(LO 3.4-5.1 mmol/L INC) Potassium 4.0 LAB 0451097(LO 98-107 mmol/L INC) Chloride 102 LAB 0158481(LO 22-32 mmol/L INC) CO2 26 LAB 5070058(LO 70-100 mg/dL INC) Glucose High 112 LAB 6546459(LO 8-26 mg/dL INC) BUN 14 LAB 6012391(LO 0.60-1.30 mg/dL INC) Creatinine 1.00 LAB 5840647(LO 8.1-10.1 mg/dL INC) Calcium 9.7 LAB 7972637(LO 6.5-8.1 g/dL INC) Total Protein 7.5 LAB 2604341(LO 3.5-5.0 g/dL INC) Albumin 4.2 LAB 9646735(LO 0.3-1.2 mg/dL INC) Bilirubin Total 0.5 LAB 4998385(LO 15-41 IU/L INC) AST (SGOT) 32 LAB 7772287(LO 14-63 IU/L INC) ALT (SGPT) 25 LAB 2515108(LO 32-91 IU/L INC) Alk Phos 85 LAB 068244(USHA 5.0-19.0 mmol/L NC) Anion Gap 9.0 LAB 603002(USHA NC) Bun/CretRatio 14.0 LAB 473643(USHA mOsm/kg NC) Osmolality-Calc 275 TROPONIN RFX Collected: 10/27/2017 Status: F Source: [place] 12:04 PM [facility] REPOSITORY Order Comment: Trop Rfx Replaces Trop order TYPE CODE TESTS RESULT OUT OF REFERENCE UNITS RANGE LAB 1693239(USHA ng/mL NC) Troponin <0.03 Result Comment: <0.04 Normal 0.04 - 0.50 Possible cardiac damage >0.50 Consistent with cardiac damage AUTO DIFF Collected: 10/27/2017 Status: F Source: [place] 12:02 [facility] REPOSITORY TYPE CODE TESTS RESULT OUT OF REFERENCE UNITS RANGE LAB NEUT(LOINC 41.0-73.8 % ) High Neutrophil% 80.9 LAB LYMP%(LOIN 17.0-44.0 % C) Low Lymph % 14.1 LAB MONO%(LOIN 5.3-12.5 % C) Low Wirt % 4.0 LAB EO%(LOINC) 0.7-6.5 % Low Eo% 0.5 LAB BASO%(LOIN 0.0-2.4 % C) Baso% 0.5 LAB ANEUT(LOIN 1.8-7.5 x10E9/L C) Neutrophil 6.5 LAB ALYMP(LOIN 1.1-3.5 x10E9/L C) Lymphocyte 1.1 LAB AMONO(LOIN 0.3-1.0 x10E9/L C) Monocyte 0.3 LAB AEO(LOINC) 0.0-0.5 x10E9/L Eosinophil 0.0 LAB ABASO(LOIN 0.0-0.2 x10E9/L C) Basophil 0.0 ZCBCD Collected: 10/27/2017 Status: F Source: [place] 12:02 PM [facility] REPOSITORY TYPE CODE TESTS RESULT OUT OF REFERENCE UNITS RANGE LAB 8819153(LO 4.3-10.5 x10E9/L INC) WBC 8.1 LAB 9372769(LO 4.18-5.87 x10E12/L INC) RBC 4.55 LAB 9872094(LO 13.4-17.5 g/dL INC) Hemoglobin 13.9 LAB 9117209(LO 37.5-49.2 % INC) Hematocrit 40.9 LAB MCV(LOINC) 80.0-100.0 fL MCV 90.0 LAB MCH(LOINC) 26.5-33.0 pg MCH 30.6 LAB MCHC(LOINC 32.6-36.0 g/dL ) MCHC 34.0 LAB 7180577(LO 144-400 x10E9/L INC) Platelet 382 LAB 330178(USHA 7.2-10.3 fL NC) Mean Plt Vol 7.8 LAB 781339(USHA 11.4-16.0 % NC) RDW 15.6 TROP POCT Collected: 10/27/2017 Status: F Source: [place] 11:57 AM [facility] REPOSITORY Order Comment: Troponin POCT added per lab protocol TYPE CODE TESTS RESULT OUT OF REFERENCE UNITS RANGE LAB 9763358(USHA ng/mL NC) Troponin POCT <0.02 Result Comment: <0.04 : Negative 0.04 - 0.50 : Possible Cardiac Damage >0.5 : Consistent With Cardiac Damage PROGRESS Observed: 10/24/2017 Status: COMPLETED Source: [place] 2:15 PM [facility] REPOSITORY HNO ID: [id number] Author: Eligio (Rn) MITCHELL Banks Service: (none) Author Type: Registered Nurse Type: Progress Notes Filed: 10/24/2017 2:16 PM Note Text: Unable to reach patient at this time, left VM to return call to the office. Eligio Banks RN ED DOC Observed: 10/22/2017 Status: UNK [facility] This is a preliminary report only, as the practitioner review and authentication has not occurred. ED DOC Observed: 10/22/2017 Status: UNK [facility] PM [facility] REPOSITORY PHYSICIAN ASSESSMENT RECORDS : FlexChartData Event Time: 10/22/2017 17:10 Status: Signed [facility] Maxx Knott [[id number]] Attending Physician 67 / M / 1950 Chart (V2b) Chart created at 10/22/2017 17:03 by Catarino Black Chart closed at 10/22/2017 20:28 Entry in Emergency Department at 10/22/2017 16:29, departure at 10/22/2017 20:40 Patient Name: Maxx Knott Record Number: [id number] Date: 10/22/2017 17:03 Entered Department at: 10/22/2017 16:29 Patient Seen at: 10/22/2017 16:51 Historian: Patient PCP: or clinic Chief Complaint:c/o intestine prolapse into colostomy [...] nauseous but no vomiting. Denies fever or [facility] REC #: [id number] [place] [address] EMERGENCY DEPARTMENT CHART EMERGENCY DEPARTMENT PHYSICIAN chills. He is on aspirin and Plavix. Denies [...] his surgeon tomorrow and to return if [facility] PATIENT NAME: MAXX KNOTT [address] [facility] [address] [place] MEDICAL REC #: [id number] [place] [address] EMERGENCY DEPARTMENT CHART EMERGENCY DEPARTMENT PHYSICIAN it [...] all your regular medications and any new [facility] PATIENT NAME: [facility] [address] [place] MEDICAL REC #: [id number] [place] [address] EMERGENCY DEPARTMENT CHART EMERGENCY DEPARTMENT PHYSICIAN medications prescribed today. Because it is not possible for the ER doctor to review all of your medication side effects or interactions, you must review possible side effects and interactions with your pharmacist when you get your prescriptions filled. EKG and Radiology Results: A communication specialist or radiologist will review any EKG or [...] symptoms. Please follow-up with your surgeon in [place] tomorrow. REFERRAL Your regular doctor(s) Please call the above number to schedule a follow-up appointment. MEDICATIONS We have given you these prescriptions that you must fill and start taking: [facility] PATIENT NAME: MAXX KNOTT [address] [place] MEDICAL REC #: [id number] [place] [address] EMERGENCY DEPARTMENT CHART EMERGENCY DEPARTMENT PHYSICIAN None [...] indicates consent for Case Management to contact [facility] in an effort to meet your ongoing healthcare needs. This will allow forcontinuity of care once you leave the Emergency Department. This exchange of informationwill include, but not be limited to, disclosure of your patient information and possible release of records. 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 [place] MEDICAL REC #: [id number] [place] [address] EMERGENCY DEPARTMENT CHART EMERGENCY DEPARTMENT PHYSICIAN ED Number: [id number] Marital Status: D Financial Class: FEDP TRIAGE Priority: 3 - Urgent Complaint: Abdominal Pain Stated Complaint: c/o intestine prolapse into colostomy bag x2-3 hrs ago. Arrival Date: 10/22/2017 16:29 Triage Date: 10/22/2017 16:31 Mode of Arrival: *Privately Owned Vehicle Transfer From: * Home WC: N Language: Guamanian Transport: Ambulatory/Walk In BED D49 In: 10/22/2017 16:36:57 10/22/2017 16:36:57 BSF D49 (Removed From) Out: 10/22/2017 20:40:22 10/22/2017 20:40:22 BSF PROVIDERS MD Catarino Black Provider Contact: 10/22/2017 16:51:00 [email or web address] End: MITCHELL JACKSON Provider Contact: 10/22/2017 17:35:16 BSF End: TRIAGE HISTORY ALLERGIES [facility] PATIENT NAME: MAXX KNOTT [address] [place] MEDICAL REC #: [id number] [place] [address] EMERGENCY DEPARTMENT CHART EMERGENCY DEPARTMENT PHYSICIAN Allergic [...] 10MG-325MG TABLET - PO 10/22/2017 18:43 BSF [facility] PATIENT NAME: MAXX KNOTT Shekhar [address] [place] MEDICAL REC #: [id number] [place] [address] EMERGENCY DEPARTMENT CHART EMERGENCY DEPARTMENT PHYSICIAN Name: [...] Social History: Smoker-1/2-3/4 PPD 10/22/2017 16:33 LDP [facility] PATIENT NAME: MAXX KNOTT [address] [place] MEDICAL REC #: [id number] [place] [address] EMERGENCY DEPARTMENT CHART EMERGENCY DEPARTMENT PHYSICIAN Social [...] 19:14 Patient Interaction - Allergy Band on [facility] PATIENT NAME: MAXX KNOTT [facility] [place] MEDICAL REC #: [id number] [place] [address] EMERGENCY DEPARTMENT CHART EMERGENCY DEPARTMENT PHYSICIAN Pt. [...] weeks, how often have you had little [facility] PATIENT NAME: MAXX KNOTT [address] [place] MEDICAL REC #: [id number] [place] [address] EMERGENCY DEPARTMENT CHART EMERGENCY DEPARTMENT PHYSICIAN interest [...] intact. dressing applied. I AND O VITALS [facility] PATIENT NAME: MAXX KNOTT [address] [place] MEDICAL REC #: [id number] [place] [address] EMERGENCY DEPARTMENT CHART EMERGENCY DEPARTMENT PHYSICIAN VS-ROUTINE [...] 20:34 map 105 10/22/2017 20:34 BSF ORDERS [facility] PATIENT NAME: MAXX KNOTT [address] [place] MEDICAL REC #: [id number] [place] [address] EMERGENCY DEPARTMENT CHART EMERGENCY DEPARTMENT PHYSICIAN Discharge patient 10/22/2017 20:29 N/A Ordered: 10/22/2017 20:28 By . Other Reviewed: 10/22/2017 20:28 By . Other Morphine (IV)*(4mg/ml) DOSE:4 mg IV 10/22/2017 19:07 N/A Ordered: 10/22/2017 18:50 By Catarino Black Completed Time: 10/22/2017 19:06 By Catarino Black Noted Time: 10/22/2017 18:50 BSF OPTICAL LAB TECHNICIAN ORDER: GFRP 10/22/2017 18:40 None Ordered: 10/22/2017 [...] Catarino Black Noted Time: 10/22/2017 17:27 BSF [facility] PATIENT NAME: MAXX KNOTT [facility] [place] MEDICAL REC #: [id number] [place] [address] EMERGENCY DEPARTMENT CHART EMERGENCY DEPARTMENT PHYSICIAN Morphine [...] SIGNATURE STACEY MUSTAFAP EMORY JACKSON RN BSF [facility] PATIENT NAME: MAXX KNOTTMaryuri Jennifer [place] MEDICAL REC #: [id number] [place] [address] EMERGENCY DEPARTMENT CHART EMERGENCY DEPARTMENT PHYSICIAN Catarino Black MD [id number] [facility] PATIENT NAME: NIKOSMAXXYanelis LewisMaryuri Jennifer [place] MEDICAL REC #: [id number] [place] [address] EMERGENCY DEPARTMENT CHART EMERGENCY DEPARTMENT PHYSICIAN CBC W/DIFF Collected: 10/22/2017 Status: F Source: [facility] 6:08 PM [place] REPOSITORY Order Comment: [place]: TYPE CODE TESTS RESULT OUT OF RANGE REFERENCE UNITS LAB L200.80731 4.5-11.0 K/CU MM WBC Normal 8.3 LAB L200.61373 4.50-6.00 M/CU MM Low RBC 4.38 LAB L200.09476 13.5-17.5 G/DL Low HGB 13.1 LAB L200.83127 41.0-53.0 % Low HCT 39.3 LAB L200.38381 80.0-99.0 fl MCV Normal 89.7 LAB L200.10802 32.0-36.0 GM/DL MCHC Normal 33.3 LAB L200.47769 11-14.5 High RDW 14.7 LAB L200.64249 9.4-12.4 MPV Normal 10.2 LAB L200.15049 150-450 K/CU MM PLT Normal 314 LAB L200.33590 45-75 % NEUTROPHILS Normal % 67.5 LAB L200.56140 Less than 2 % IMMATURE Normal GRAN % 0.2 LAB L200.54562 20-40 % LYMPH % Normal 21.6 LAB L200.05630 2-10 % MONOCYTE % Normal 7.2 LAB L200.45714 0-5 % EOSINOPHIL Normal % 3.0 LAB L200.68952 0-2 % BASOPHIL % Normal 0.5 LAB L200.47733 2.0-8.3 K/CU MM NEUTROPHIL Normal ABS 5.60 LAB L200.35869 Less than 2 K/CU MM IMMATR GRAN Normal ABS 0.00 LAB L200.00958 0.9-4.4 K/CU MM LYMPH ABS Normal 1.80 LAB L200.26222 0.1-1.1 K/CU MM MONO ABS Normal 0.60 LAB L200.60468 0-0.5 K/CU MM EOS ABS Normal 0.30 LAB L200.03041 0-0.2 K/CU MM BASO ABS Normal 0.00 LAB L200.60743 Less than 1 % NRBC Normal 0.0 Performed By: #### L200.50175 #### [facility] [address] [place] [address] BMP Collected: 10/22/2017 Status: F Source: [facility] 6:08 PM [facility] REPOSITORY Order Comment: [place]: M TYPE CODE TESTS RESULT OUT OF RANGE REFERENCE UNITS LAB L500.05452 136-145 MMOL/L Normal NA 139 LAB L500.72532 3.5-5.1 MMOL/L Normal K 4.2 LAB L500.81420 98-107 MMOL/L Normal CL 101 LAB L500.68452 21-32 MMOL/L Normal CO2 32 LAB L500.99565 5-16 MMOL/L Normal AGAP 6 LAB L500.71067 70-100 MG/DL High GLU 117 Result Comment: 70-100- Normal Fasting; 100-125 Impaired Fasting; greater than 126 on more than one result- Diabetes. ADA guidelines. Results may be falsely elevated after the administration of Sulfapyridine. Results may be falsely depressed after the administration of Sulfasalazine. LAB L500.75621 7-26 MG/DL Normal BUN 14 LAB L500.84499 0.670-1.170 MG/DL Normal CREAT 0.809 Result Comment: Patients receiving either N-Acetylcysteine (NAC) or Metamizole prior to venipuncture, may have falsely depressed results. LAB L500.47821 15-24 Normal BUN/CREA 17 LAB L500.33959 8.5-10.1 MG/DL Normal CALCIUM TOTAL 9.9 Performed By: #### L500.65178, L500.45833 #### [facility] [address] [place] [address] GFR EST Collected: 10/22/2017 Status: F Source: [facility] 6:08 PM [facility] REPOSITORY Order Comment: [place]: M TYPE CODE TESTS RESULT OUT OF RANGE REFERENCE UNITS LAB L500.23102 ML/MIN Normal IF non-AFR Greater than AMER 60 LAB L500.06566 ML/MIN Normal IF Greater than AMER 60 Performed By: #### L500.75421, L500.29156 #### [facility] [address] [place] [address] CT ABD/PEL W IV Observed: 10/22/2017 Status: F Source: [employer] CONTRAST ONLY 4:56 PM [facility] CT ABD/PEL W IV CONTRAST ONLY Ordering [...] SINGLE VIEW Observed: 10/20/2017 Status: F Source: [place] (PORTABLE) 10:24 AM [facility] REPOSITORY [facility] Imaging Services [address] [place] [address] Abdomen Single View (Portable) MR#: [id number] Acct: [id number] Name: MAXX KNOTT Rep #: [id number] : 1950 M 67 From: Jordan Rob MD PCP: [place], [place] Status: REG ER Study: Abdomen Single View (Portable) Date of Exam: 10/20/17 Exam# [id number] Ordering Dr: Chele Smith MD STUDY: X-RAY [...] 12:36 EDT , Service support , CC: [facility]; Chele Smith MD Geriatric Physical Therapist: Signed CBC Collected: 10/19/2017 Status: F Source: [place] 5:45 AM [facility] REPOSITORY TYPE CODE TESTS RESULT OUT OF REFERENCE UNITS RANGE LAB 5719649(LO 4.3-10.5 x10E9/L INC) WBC 7.7 LAB 0539981(LO 4.18-5.87 x10E12/L INC) Low RBC 4.14 LAB 6500127(LO 13.4-17.5 g/dL INC) Low Hemoglobin 12.4 LAB 0079447(LO 37.5-49.2 % INC) Hematocrit 37.7 LAB MCV(LOINC) 80.0-100.0 fL MCV 91.1 LAB MCH(LOINC) 26.5-33.0 pg MCH 30.0 LAB MCHC(LOINC 32.6-36.0 g/dL ) MCHC 33.0 LAB 2247517(LO 144-400 x10E9/L INC) Platelet 272 LAB 842242(USHA 7.2-10.3 fL NC) Mean Plt Vol 8.2 LAB 035450(USHA 11.4-16.0 % NC) RDW 15.9 BMP Collected: 10/19/2017 Status: F Source: [place] 5:45 AM [facility] REPOSITORY TYPE CODE TESTS RESULT OUT OF REFERENCE UNITS RANGE LAB 0153471(LO 136-144 mmol/L INC) Sodium 139 LAB 1103416(LO 3.4-5.1 mmol/L INC) Potassium 4.6 LAB 2712166(LO 98-107 mmol/L INC) Chloride 106 LAB 3471857(LO 22-32 mmol/L INC) CO2 27 LAB 2109370(LO 70-100 mg/dL INC) Glucose High 102 LAB 8026055(LO 8-26 mg/dL INC) BUN High 30 LAB 0967958(LO 0.60-1.30 mg/dL INC) Creatinine 1.17 LAB 8128632(LO 8.1-10.1 mg/dL INC) Calcium 9.1 LAB 491288(USHA 5.0-19.0 mmol/L NC) Anion Gap 6.0 LAB 108055(USHA mOsm/kg NC) Osmolality-Calc 284 LAB 636163(USHA NC) Bun/CretRatio 25.6 BMP Collected: 10/18/2017 Status: F Source: [place] 6:57 AM [facility] REPOSITORY TYPE CODE TESTS RESULT OUT OF REFERENCE UNITS RANGE LAB 4422653(LO 136-144 mmol/L INC) Sodium 139 LAB 5181958(LO 3.4-5.1 mmol/L INC) Potassium 4.1 LAB 1215906(LO 98-107 mmol/L INC) Chloride 104 LAB 5681007(LO 22-32 mmol/L INC) CO2 24 LAB 980774(USHA 5.0-19.0 mmol/L NC) Anion Gap 11.0 LAB 4472725(LO 70-100 mg/dL INC) Glucose 93 LAB 2934695(LO 8-26 mg/dL INC) BUN 25 LAB 6350754(LO 0.60-1.30 mg/dL INC) High Creatinine 1.33 LAB 0400578(LO 8.1-10.1 mg/dL INC) Calcium 9.1 LAB 209698(USHA mOsm/kg NC) Osmolality-Calc 282 LAB 360621(USHA NC) Bun/CretRatio 18.8 AUTO DIFF Collected: 10/18/2017 Status: F Source: [place] 6:57 AM [facility] REPOSITORY TYPE CODE TESTS RESULT OUT OF REFERENCE UNITS RANGE LAB NEUT(LOINC 41.0-73.8 % ) Neutrophil% 62.0 LAB LYMP%(LOIN 17.0-44.0 % C) Lymph % 19.9 LAB MONO%(LOIN 5.3-12.5 % C) Wirt % 10.6 LAB EO%(LOINC) 0.7-6.5 % Eo% 6.5 LAB BASO%(LOIN 0.0-2.4 % C) Baso% 1.0 LAB ANEUT(LOIN 1.8-7.5 x10E9/L C) Neutrophil 4.7 LAB ALYMP(LOIN 1.1-3.5 x10E9/L C) Lymphocyte 1.5 LAB AMONO(LOIN 0.3-1.0 x10E9/L C) Monocyte 0.8 LAB AEO(LOINC) 0.0-0.5 x10E9/L Eosinophil 0.5 LAB ABASO(LOIN 0.0-0.2 x10E9/L C) Basophil 0.1 ZCBCD Collected: 10/18/2017 Status: F Source: [place] 6:57 AM [facility] REPOSITORY TYPE CODE TESTS RESULT OUT OF REFERENCE UNITS RANGE LAB 8735027(LO 4.3-10.5 x10E9/L INC) WBC 7.6 LAB 2138456(LO 4.18-5.87 x10E12/L INC) Low RBC 3.95 LAB 9072393(LO 13.4-17.5 g/dL INC) Low Hemoglobin 12.1 LAB 6163094(LO 37.5-49.2 % INC) Low Hematocrit 35.8 LAB MCV(LOINC) 80.0-100.0 fL MCV 90.6 LAB MCH(LOINC) 26.5-33.0 pg MCH 30.7 LAB MCHC(LOINC 32.6-36.0 g/dL ) MCHC 33.9 LAB 6973839(LO 144-400 x10E9/L INC) Platelet 262 LAB 396207(USHA 7.2-10.3 fL NC) Mean Plt Vol 8.3 LAB 606682(USHA 11.4-16.0 % NC) RDW 15.7 TROPONIN Collected: 10/17/2017 Status: F Source: [place] 9:17 PM [facility] REPOSITORY TYPE CODE TESTS RESULT OUT OF REFERENCE UNITS RANGE LAB 4648164(USHA ng/mL NC) Troponin 0.03 Result Comment: <0.04 Normal 0.04 - 0.50 Possible cardiac damage >0.50 Consistent with cardiac damage TROPONIN Collected: 10/17/2017 Status: F Source: [place] 3:50 PM [facility] REPOSITORY TYPE CODE TESTS RESULT OUT OF REFERENCE UNITS RANGE LAB 4052893(USHA ng/mL NC) Troponin 0.03 Result Comment: <0.04 Normal 0.04 - 0.50 Possible cardiac damage >0.50 Consistent with cardiac damage DOWNTIME REPORT Observed: 10/17/2017 Status: F Source: [place] 1:49 PM [facility] REPOSITORY [facility] Medical Records Department [address] [place] [address] Downtime Report MR#: [id number] Acct: [id number] Name: MAXX KNOTT Rep #: [id number] : 1950 67 From: Radhika Ahn MD PCP[place] [place] Status: [facility] This patient was seen during an EMR downtime October 01, 2017 - October 08, 2017. This patient may have a combination of paper and electronic documentation or all paper documentation. All documentation is viewable within the e-chart portion of [facility] for each patient visit. RAD/CHEST 2V Observed: 10/17/2017 Status: F Source: [place] FRONTAL/LAT 11:19 AM [facility] REPOSITORY Patient Name: MAXX KNOTT STUDY: RAD/CHEST 2V FRONTAL/LAT; 10/17/2017 10:44 am INDICATION: chest pain, SOB. COMPARISON: 10/03/2017 ACCESSION NUMBER(S): [id number] ORDERING CLINICIAN: AISSATOU SCHMIDT FINDINGS: CARDIOMEDIASTINAL SILHOUETTE: Heart is prominent but stable. There are sternotomy wires from prior cardiac surgery. There is a left subclavian bichamber pacemaker with a single tip in the right atrium and a single tip in the right ventricle. LUNGS: Lungs are clear. There is focal eventration of the left hemidiaphragm containing non dilated loop of bowel/stomach. ABDOMEN: No remarkable upper abdominal findings. BONES: No acute osseous changes. There is a remote healed left 1st rib fracture. IMPRESSION: No acute cardiopulmonary process. Dictated by: Electronically Signed by: Samantha Valentin Electronically Signed on: 10/17/2017 11:19 AM AUTO DIFF Collected: 10/17/2017 Status: F Source: [place] 10:25 AM [facility] REPOSITORY TYPE CODE TESTS RESULT OUT OF REFERENCE UNITS RANGE LAB NEUT(LOINC 41.0-73.8 % ) High Neutrophil% 79.1 LAB LYMP%(LOIN 17.0-44.0 % C) Low Lymph % 13.6 LAB MONO%(LOIN 5.3-12.5 % C) Low Wirt % 3.7 LAB EO%(LOINC) 0.7-6.5 % Eo% 3.5 LAB BASO%(LOIN 0.0-2.4 % C) Baso% 0.1 LAB ANEUT(LOIN 1.8-7.5 x10E9/L C) High Neutrophil 8.5 LAB ALYMP(LOIN 1.1-3.5 x10E9/L C) Lymphocyte 1.5 LAB AMONO(LOIN 0.3-1.0 x10E9/L C) Monocyte 0.4 LAB AEO(LOINC) 0.0-0.5 x10E9/L Eosinophil 0.4 LAB ABASO(LOIN 0.0-0.2 x10E9/L C) Basophil 0.0 ZCBCD Collected: 10/17/2017 Status: F Source: [place] 10:25 AM [facility] REPOSITORY TYPE CODE TESTS RESULT OUT OF REFERENCE UNITS RANGE LAB 6759417(LO 4.3-10.5 x10E9/L INC) WBC High 10.7 LAB 8992084(LO 4.18-5.87 x10E12/L INC) RBC 4.43 LAB 0949194(LO 13.4-17.5 g/dL INC) Hemoglobin 13.7 LAB 3361297(LO 37.5-49.2 % INC) Hematocrit 40.5 LAB MCV(LOINC) 80.0-100.0 fL MCV 91.4 LAB MCH(LOINC) 26.5-33.0 pg MCH 31.0 LAB MCHC(LOINC 32.6-36.0 g/dL ) MCHC 33.9 LAB 9449995(LO 144-400 x10E9/L INC) Platelet 356 LAB 610045(USHA 7.2-10.3 fL NC) Mean Plt Vol 8.2 LAB 372690(USHA 11.4-16.0 % NC) RDW 15.5 BMP Collected: 10/17/2017 Status: F Source: [place] 10:25 AM [facility] REPOSITORY TYPE CODE TESTS RESULT OUT OF REFERENCE UNITS RANGE LAB 4449037(LO 136-144 mmol/L INC) Sodium 140 LAB 8060436(LO 3.4-5.1 mmol/L INC) Potassium 3.9 LAB 4913192(LO 98-107 mmol/L INC) Chloride 101 LAB 6580861(LO 22-32 mmol/L INC) CO2 28 LAB 2295866(LO 70-100 mg/dL INC) Glucose High 134 LAB 3652032(LO 8-26 mg/dL INC) BUN 12 LAB 1069209(LO 0.60-1.30 mg/dL INC) Creatinine 0.84 LAB 6620251(LO 8.1-10.1 mg/dL INC) Calcium 9.3 LAB 508187(USHA 5.0-19.0 mmol/L NC) Anion Gap 11.0 LAB 337928(USHA mOsm/kg NC) Osmolality-Calc 281 LAB 941803(USHA NC) Bun/CretRatio 14.3 TROPONIN RFX Collected: 10/17/2017 Status: F Source: [place] 10:25 AM [facility] REPOSITORY Order Comment: Trop Rfx Replaces Trop order TYPE CODE TESTS RESULT OUT OF REFERENCE UNITS RANGE LAB 1887197(USHA ng/mL NC) Troponin 0.03 Result Comment: <0.04 Normal 0.04 - 0.50 Possible cardiac damage >0.50 Consistent with cardiac damage CARD BNP Collected: 10/17/2017 Status: F Source: [place]ONES 10:25 AM [facility] REPOSITORY TYPE CODE TESTS RESULT OUT OF REFERENCE UNITS RANGE LAB 6934454(USHA <=100 pg/mL NC) High Cardiac BNP 446 TROP POCT Collected: 10/17/2017 Status: F Source: [place] 10:14 AM [facility] REPOSITORY Order Comment: Troponin POCT added per lab protocol TYPE CODE TESTS RESULT OUT OF REFERENCE UNITS RANGE LAB 4186264(USHA ng/mL NC) Troponin POCT 0.02 Result Comment: <0.04 : Negative 0.04 - 0.50 : Possible Cardiac Damage >0.5 : Consistent With Cardiac Damage PROGRESS Observed: 10/17/2017 Status: COMPLETED Source: [place] 9:23 AM [facility] REPOSITORY HNO ID: [id number] Author: Eligio KingRn) MITCHELL Banks Service: (none) Author Type: Registered Nurse Type: Progress Notes Filed: 10/17/2017 9:23 AM Note Text: Unable to reach patient at this time, left VM to return call to the office. Eligio Banks RN ED NOTE Observed: 10/10/2017 Status: COMPLETED Source: [place] 1:00 AM [facility] REPOSITORY HNO ID: [id number] Author: Sim Najera RN Service: Emergency Medicine Author Type: Registered Nurse Type: ED Notes Filed: 10/10/2017 2:04 AM Note Text: Pt discharged home in stable condition. Pt voiced understanding of discharge instructions and f/u recommendations. All questions answered. Prescriptions reviewed and PIV discontinued. ED NOTE Observed: 10/10/2017 Status: COMPLETED Source: [place] 12:45 AM [facility] REPOSITORY HNO ID: [id number] Author: Sim Toth) MITCHELL Najera Service: Emergency Medicine Author Type: Registered Nurse Type: ED Notes Filed: 10/10/2017 2:05 AM Note Text: Placed ostomy bag onto pt. Pt tolerated procedure CONSULT Observed: 10/09/2017 Status: COMPLETED Source: [place] 9:44 PM [facility] REPOSITORY HNO ID: [id number] Author: Jay Alexander Service: General Surgery Author [...] with senior Dr. Salinas and staff Dr. 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 [...] [Amiloride-Hyd* Swelling - Moxifloxacin Swelling - Other Lake-3s Unknown brelinta - Ramipril Swelling Other reaction(s): [...] ED NOTE Observed: 10/09/2017 Status: COMPLETED Source: [place] 8:25 PM [facility] REPOSITORY HNO ID: [id number] Author: Mine Wesley Service: Emergency Medicine Author Type: Assistant Infant Teacher and Media Account Executive Type: ED Notes Filed: 10/09/2017 8:32 PM Note Text: Labs were drawn and sent. CBC AND DIFFERENTIAL Collected: 10/09/2017 Status: F Source: [place] 8:25 PM [facility] REPOSITORY TYPE CODE TESTS RESULT [...] k/uL Abs Lymph 1.81 LAB AMONO % Wirt% 9.1 LAB AAMONO <0.87 k/uL Abs Wirt High 1.03 LAB AEOS % Eosin% 1.9 LAB AAEOS <0.46 k/uL Abs Eosin 0.21 LAB ABASO % Baso% 0.4 LAB AABASO <0.11 k/uL Abs Baso 0.04 LAB AUNRBC 0 /100 WBC NRBCs 0.0 LAB ABNRBC <0.01 k/uL Absolute nRBC <0.01 LAB DTYP DTYPE Auto Diff Performed By: #### CBCDIF, CMP, LIPA #### [facility] [address] [place], [place] [address] COMP METABOLIC PANEL Collected: 10/09/2017 Status: F Source: [place] 8:25 PM [facility] REPOSITORY TYPE CODE TESTS RESULT [...] Performed By: #### CBCDIF, CMP, LIPA #### [facility] [employer] [address] [place], [place] [address] LIPASE Collected: 10/09/2017 Status: F Source: [place] 8:25 PM [facility] REPOSITORY TYPE CODE TESTS RESULT OUT OF REFERENCE UNITS RANGE LAB LIPA 16-61 U/L Low Lipase 15 Performed By: #### CBCDIF, CMP, LIPA #### [facility] [employer] [address] [place], [place] [id number] ED PROV NOTE Observed: 10/09/2017 Status: COMPLETED Source: [place] 7:14 PM [facility] REPOSITORY HNO ID: [id number] Author: Woo Valdovinos MD Service: Emergency Medicine [...] (abdominal aortic aneurysm) without rupture ([facility]) 05/13/[address] a/p - CAD (coronary artery disease) 2005 CAD s/p CABG x3 (ZECC-TJX-njgitd, NCR-BGK-wprpgq, APW-YV3-ujmrszjp) (2006 at [place]) - COPD (chronic obstructive pulmonary disease) ([facility]) - Current every day smoker PT SMOKES A PIPE - Diverticulitis Perforated Diverticulitis - Diverticulitis of sigmoid colon 05/15/2017 Added automatically from request for surgery [id number] - Hx of CABG - Pacemaker 02/16/2017 s/p PPM () 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 - Peritonitis ([facility]) PAST SURGICAL HISTORY Procedure Laterality [...] [Amiloride-Hyd* Swelling - Moxifloxacin Swelling - Other Lake-3s Unknown brelinta - Ramipril Swelling Other reaction(s): [...] at sign out SIGNATURE: DO Mata Diaz (Juan) Carmen Resident 10/09/172055 Attending Note I evaluated [...] 10/10/2017 Time: 10:32 PM Woo Valdovinos MD 10/10/17 2236 ED TRIAGE NOTE Observed: 10/09/2017 Status: COMPLETED Source: [place] 5:13 PM [facility] REPOSITORY HNO ID: [id number] Author: Livia Ahn (Pa) Service: (none) Author Type: Physician Title Insurance Examiner Type: ED Triage Notes Filed: 10/09/2017 5:15 [...] Status: F Source: [place] [facility] 7:40 PM [facility] REPOSITORY ORIGINAL CT ABDOMEN/PELVIS W/O CONTRAST: Multiplanar [...] kidney demonstrates no enhancement when compared to [facility] 10/07/2017 study, likely benign. No urinary tract [...] PM CBC Collected: 10/07/2017 Status: F Source: [facility] 7:22 PM [facility] REPOS[facility] TYPE CODE TESTS RESULT [...] 7.4-10.4 fL MPV 8.1 Performed By: #### CBC, ADIFF, ANEU, GFR, BMP #### [address] [address] .AUTO DIFF Collected: 10/07/2017 Status: F Source: [facility] 7:22 PM [facility] REPOSITORY TYPE CODE TESTS RESULT [...] ) Basophil, 0.10 Absolute Performed By: #### CBC, ADIFF, ANEU, GFR, BMP #### [address] [address] .NEUABS Collected: 10/07/2017 Status: F Source: [facility] 7:22 PM [facility] REPOSITORY TYPE CODE TESTS RESULT OUT OF REFERENCE UNITS RANGE LAB ANEU(LOINC) 2.85-6.16 10 3/mcL High Neutrophil, 7.90 Absolute Performed By: #### CBC, ADIFF, ANEU, GFR, BMP #### [facility] [id number] [place], [place] [address] .GFR Collected: 10/07/2017 Status: F Source: [facility] 7:22 PM [facility] REPOSITORY TYPE CODE [...] 15 mL/min/1.73 square meters Performed By: #### CBC, ADIFF, ANEU, GFR, BMP #### [facility] [address] [address] BMP Collected: 10/07/2017 Status: C Source: [employer] 7:22 PM [facility] REPOSITORY TYPE CODE [...] mg/dL Calcium Lvl 10.1 Performed By: #### CBC, ADIFF, ANEU, GFR, BMP #### [id number] [place], [place] [address] CT ABD/PELVIS W/ IV Observed: 10/03/2017 Status: F Source: [employer] CONTRAST ONLY 5:07 PM [facility] REPOSITORY [...] PM .GFR Collected: 10/03/2017 Status: F Source: [facility] 4:19 PM [facility] REPOSITORY TYPE CODE TESTS [...] 15 mL/min/1.73 square meters Performed By: #### GFR, BMP #### [place] [id number] BMP Collected: 10/03/2017 Status: F Source: [facility] 4:19 PM [facility] REPOSITORY TYPE CODE TESTS [...] mg/dL Calcium Lvl 9.4 Performed By: #### GFR, BMP #### [place] [id number] RAD/CHEST 2V Observed: 10/03/2017 Status: F Source: [place] FRONTAL/LAT 11:30 AM [facility] REPOSITORY Patient Name: MAXX KNOTT STUDY: RAD/CHEST 2V FRONTAL/LAT; 10/03/2017 10:06 am INDICATION: trauma. COMPARISON: 09/24/2017 and 08/01/2017 ACCESSION NUMBER(S): [id number] ORDERING CLINICIAN: JUANCHO COURTNEY FINDINGS: AP upright and lateral chest. No focal infiltrate, pleural effusion or evidence of pneumothorax. Median sternotomy wires, surgical clips, left-sided pacing device unchanged. The cardiac silhouette is normal in size. Osseous thorax appears intact. IMPRESSION: No acute cardiopulmonary process. Dictated by: Electronically Signed by: Guadalupe Giles Electronically Signed on: 10/03/2017 11:30 AM RAD/THORACI AP/LAT Observed: 10/03/2017 Status: F Source: ROBERT W/YVES 11:29 AM [facility] REPOSITORY Patient Name: MAXX KNOTT STUDY: RAD/THORACI AP/LAT W/SWIM; 10/03/2017 10:06 am INDICATION: trauma. COMPARISON: None. ACCESSION NUMBER(S): [id number] ORDERING CLINICIAN: JUANCHO COURTNEY FINDINGS: Five views of the thoracic spine. The vertebral body heights appear maintained. There are moderate degenerative changes with flowing anterior and lateral osteophytes at several levels, mainly along the lower thoracic spine.. No definite acute compression fractures. Median sternotomy wires, surgical clips, partially imaged left-sided pacing device partially obscure the thoracic spine on the AP view. The paraspinal soft tissues are otherwise unremarkable. IMPRESSION: Moderate multilevel discogenic degenerative changes mainly at the lower thoracic level. No acute compression fractures. Dictated by: Electronically Signed by: Guadalupe Giles Electronically Signed on: 10/03/2017 11:[address]/CERVICAL WITHOUT Observed: 10/03/2017 Status: F Source: ROBERT 9:53 AM [facility] REPOSITORY Patient Name: MAXX KNOTT STUDY: CT/CERVICAL WITHOUT; 10/03/2017 9:40 am INDICATION: trauma. Fall, trauma, neck pain COMPARISON: None. ACCESSION NUMBER(S): [id number] ORDERING CLINICIAN: JUANCHO COURTNEY TECHNIQUE: Unenhanced axial images were obtained through the cervical spine. The axial data was utilized to reconstruct images in sagittal and coronal planes. FINDINGS: No acute fracture is identified. There are degenerative changes which include disc space narrowing, endplate spurring, endplate sclerosis, uncovertebral spurring, posterior disc osteophyte complexes, and facet hypertrophy. There is fairly dense calcifications involving the posterior longitudinal ligament extending from the inferior endplate of C5 to the superior endplate of C7. This narrows the spinal canal. No subluxation is seen. Facet joints demonstrate a normal alignment. Prevertebral soft tissues are within normal limits. No lytic or blastic lesion is noted. IMPRESSION: No evidence of an acute fracture or subluxation. Degenerative changes. Dictated by: Electronically Signed by: Nadir Leija Electronically Signed on: 10/03/2017 9:[address]/HEAD WITHOUT Observed: 10/03/2017 Status: F Source: JONES 9:51 AM [facility] REPOSITORY Patient Name: MAXX KNOTT STUDY: CT/HEAD WITHOUT; 10/03/2017 9:40 am INDICATION: trauma. Fall, trauma COMPARISON: None. ACCESSION NUMBER(S): [id number] ORDERING CLINICIAN: JUANCHO COURTNEY TECHNIQUE: Unenhanced images were obtained through the brain. FINDINGS: There is atrophy resulting in prominence of the ventricles and sulci. There are areas of decreased attenuation throughout the white matter which are nonspecific but are commonly associated with small vessel ischemic disease. There is no mass effect or midline shift. No acute intracranial hemorrhage is identified. No extra-axial fluid collections are seen. No intraparenchymal mass lesions are identified. Bone windows demonstrate no evidence of an acute calvarial fracture. Small mucous retention cyst or polyp within the left maxillary sinus. IMPRESSION: No evidence of an acute intracranial process. Age related findings. Dictated by: Electronically Signed by: Nadir Leija Electronically Signed on: 10/03/2017 9:51 AM ED DOC Observed: 09/30/2017 Status: UNK Source: [facility] 10:44 PM [facility] This is a preliminary report only, as the practitioner review and authentication has not occurred. 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 [employer] Patient: MAXX KNOTT Sex: M : 1950 Age: 67 yr Account No: [id number] Registration Date: 22:17 09/30/2017 Address: [address] Address: [place] [address] REGISTRATION ED Number: [id number] Marital Status: D Financial Class: FEDP TRIAGE Arrival Date: 09/30/2017 22:17 WC: N BED PROVIDERS TRIAGE HISTORY [facility] PATIENT NAME: MAXX KNOTT [address] MEDICAL REC #: [id number] [place] [address] EMERGENCY DEPARTMENT CHART EMERGENCY DEPARTMENT PHYSICIAN NURSING ASSESSMENT ASSESSMENT NOTES TREATMENT MEDICATIONS IV I AND O VITALS ORDERS LBE (Left Before Exam) 09/30/2017 22:45 N/A Ordered: 09/30/2017 22:45 By RICH VIOLA DISCHARGE Diagnosis: LWT 0 09/30/2017 22:45 Disposition: Time: 09/30/2017 22:44 Discharge Time: 09/30/2017 22:44 Type: LBE Condition: LBE 1ST CALL 2220 2ND CALL 2245 NO ANSWER Referral: 09/30/2017 22:45 JBF PRESCRIPTIONS [facility] PATIENT NAME: MAXX KNOTT Dr. [address] MEDICAL REC #: [id number] [place] [address] EMERGENCY DEPARTMENT CHART EMERGENCY DEPARTMENT PHYSICIAN CHARGES SIGNATURE RICH ANN [facility] [address] MEDICAL REC #: [id number] [place] [id number] EMERGENCY DEPARTMENT CHART EMERGENCY DEPARTMENT PHYSICIAN PROGRESS Observed: 09/28/2017 Status: COMPLETED Source: [place] 2:59 PM [facility] REPOSITORY HNO ID: [id number] Author: Eligio KingRn) Christian, MITCHELL Service: (none) Author Type: Registered Nurse Type: Progress Notes Filed: 11/02/2017 11:11 AM Note Text: PRIMARY CARE COORDINATION CHART REVIEW Patient identified for Care Coordination from: [facility]- [facility] Last PCP office visit: 04/18/2017 Next [...] for Care Coordination monthly and PRN Eligio Banks, MITCHELL PROGRESS Observed: 09/28/2017 Status: COMPLETED Source: [place] 1:36 PM [facility] REPOSITORY HNO ID: [id number] Author: Chris Ovalles Service: (none) Author Type: [...] Ovalles CNPTOUTREACH Observed: 09/28/2017 Status: COMPLETED Source: [place] 12:00 AM [facility] REPOSITORY Patient Outreach (INTMMN) MAXX KNOTT ([id number]) 1950 M Date Time Provider Department 09/28/17 [...] return call to the office. 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 [3613] Cmt: Chart Review Prescriptions as of 09/28/2017 [...] * FLUTICASONE 50 MCG/ACTUATION * Use 1 Vulcan in the nose once * NITROGLYCERIN 0.4 [...] Encounter Status:Closed by ELIGIO BANKS on 11/02/17 CNPTOUTRZENON Observed: 09/28/2017 Status: COMPLETED Source: [place] 12:00 AM [facility] REPOSITORY Patient Outreach (INTMMN) MAXX KNOTT ([id number]) 1950 M Date Time Provider Department 09/28/17 CHRIS LEPE (PSR) ROSAMARIA During your visit today, we recorded the [...] Care Coordination - Schedule Follow up Chris Betancourt Psr 11/19/2017 3:23 PM Signed Pt is in bed E18-12, pt has been working with career 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 Malnutrition of mild degree ([facility]) [E44.1] INVALID FOR* Priority: L More... CHF (congestive heart failure) ([facility]) [I50.9] INVALID FOR* Diverticulitis of [...] hernia [K46.9] INVALID FOR* Encounter Status:Closed by FREDEIRC DAVALOS on 11/19/17 NUC/SPECT STRESS/REST Observed: 09/25/2017 Status: F Source: [place] 3:36 PM [facility] REPOSITORY Patient Name: MAXX KNOTT STUDY: NUC/SPECT STRESS/REST MPI; 09/25/2017 2:02 pm INDICATION: CP. COMPARISON: None. ACCESSION NUMBER(S): [id number] ORDERING CLINICIAN: RICARDO MOREL TECHNIQUE: DIVISION OF NUCLEAR MEDICINE PHARMACOLOGIC STRESS MYOCARDIAL PERFUSION SCAN, ONE DAY PROTOCOL The patient received an intravenous dose of 10.7 mCi of Tc- 99m tetrofosmin and resting emission tomographic (SPECT) images of the myocardium were acquired. The patient then received an intravenous infusion of 0.4mg regadenoson (Lexiscan) followed by an additional dose of 31.2 mCi of Tc- 99m tetrofosmin. Stress phase SPECT images of the myocardium were then acquired. These included ECG-gated images to assess and quantify ventricular function. FINDINGS: Stress and rest images both demonstrate a medium sized area of fixed perfusion defect of the inferior and inferolateral segment, severe in intensity. No ischemia was seen. ECG-gated images demonstrate dilated LV size and moderately reduced myocardial contractility with an LV ejection fraction of 41 % (normal above 50 percent). IMPRESSION: Medium-sized area of fixed perfusion defect of the inferior and inferolateral segment, consistent with myocardial scar in right coronary artery territory. No ischemia was seen. Dilated left ventricle with moderately reduced left ventricular systolic function on post stress gated imaging. Dictated by: Electronically Signed by: Anthony Purvis Electronically Signed on: 09/25/2017 3:36 PM TROPONINX Collected: 09/25/2017 Status: F Source: [place] 3:07 AM [facility] REPOSITORY TYPE CODE TESTS RESULT OUT OF REFERENCE UNITS RANGE LAB [id number](USHA ng/mL NC) Troponin <0.03 Result Comment: <0.04 Normal 0.04 - 0.50 Possible cardiac damage >0.50 Consistent with cardiac damage TROPONIN Collected: 09/24/2017 Status: F Source: [place] 11:36 PM [facility] REPOSITORY TYPE CODE TESTS RESULT OUT OF REFERENCE UNITS RANGE LAB [id number](USHA ng/mL NC) Troponin <0.03 Result Comment: <0.04 Normal 0.04 - 0.50 Possible cardiac damage >0.50 Consistent with cardiac damage RAD/CHEST 2V Observed: 09/24/2017 Status: F Source: [place] FRONTAL/LAT 8:52 PM [facility] REPOSITORY Patient Name: MAXX KNOTT STUDY: RAD/CHEST 2V FRONTAL/LAT; 09/24/2017 8:43 pm INDICATION: CP. COMPARISON: Chest x-ray 09/01/2017, CT scan of the abdomen and pelvis 08/01/2017 ACCESSION NUMBER(S): [id number] ORDERING CLINICIAN: JUANCHO COURTNEY FINDINGS: Midline sternotomy wires and mediastinal clips noted. Left- sided dual lead pacer is stable in position CARDIOMEDIASTINAL SILHOUETTE: Cardiomediastinal silhouette is stable in size and configuration. LUNGS: No consolidation, pleural effusion or pneumothorax. There is a focal retrocardiac opacity with central lucency which on correlation with abdominal CT of 07/05/2017 is favored to relate to focal diaphragmatic hernia containing portion of the stomach. There is adjacent atelectasis. Remainder of the lungs are clear. No sizeable effusion or pneumothorax. ABDOMEN: No remarkable upper abdominal findings. BONES: Degenerative changes of the spine. IMPRESSION: No acute cardiopulmonary process. Focal diaphragmatic hernia with protrusion of the gastric fundus as noted on prior CTs. Adjacent atelectasis. Dictated by: Electronically Signed by: Jason Marques Electronically Signed on: 09/24/2017 8:52 PM AUTO DIFF Collected: 09/24/2017 Status: F Source: [place] 8:19 PM [facility] REPOSITORY TYPE CODE TESTS RESULT OUT OF REFERENCE UNITS RANGE LAB NEUT(LOINC 41.0-73.8 % ) Neutrophil% 73.0 LAB LYMP%(LOIN 17.0-44.0 % C) Lymph % 17.4 LAB MONO%(LOIN 5.3-12.5 % C) Wirt % 6.6 LAB EO%(LOINC) 0.7-6.5 % Eo% 2.9 LAB BASO%(LOIN 0.0-2.4 % C) Baso% 0.1 LAB ANEUT(LOIN 1.8-7.5 x10E9/L C) Neutrophil 6.3 LAB ALYMP(LOIN 1.1-3.5 x10E9/L C) Lymphocyte 1.5 LAB AMONO(LOIN 0.3-1.0 x10E9/L C) Monocyte 0.6 LAB AEO(LOINC) 0.0-0.5 x10E9/L Eosinophil 0.2 LAB ABASO(LOIN 0.0-0.2 x10E9/L C) Basophil 0.0 ZCBCD Collected: 09/24/2017 Status: F Source: [place] 8:19 PM [facility] REPOSITORY TYPE CODE TESTS RESULT OUT OF REFERENCE UNITS RANGE LAB [id number](LO 4.3-10.5 x10E9/L INC) WBC 8.6 LAB 3562937(LO 4.18-5.87 x10E12/L INC) RBC 4.21 LAB 6217241(LO 13.4-17.5 g/dL INC) Low Hemoglobin 12.8 LAB 6371372(LO 37.5-49.2 % INC) Hematocrit 38.0 LAB MCV(LOINC) 80.0-100.0 fL MCV 90.2 LAB MCH(LOINC) 26.5-33.0 pg MCH 30.3 LAB MCHC(LOINC 32.6-36.0 g/dL ) MCHC 33.6 LAB 5450883(LO 144-400 x10E9/L INC) Platelet 360 LAB 090810(USHA 7.2-10.3 fL NC) Mean Plt Vol 8.3 LAB 716884(USHA 11.4-16.0 % NC) RDW 14.8 BMP Collected: 09/24/2017 Status: F Source: [place] 8:19 PM [facility] REPOSITORY TYPE CODE TESTS RESULT OUT OF REFERENCE UNITS RANGE LAB [id number](LO 136-144 mmol/L INC) Sodium 139 LAB 7882754(LO 3.4-5.1 mmol/L INC) Potassium 3.7 LAB 9229190(LO 98-107 mmol/L INC) Chloride 103 LAB 1245831(LO 22-32 mmol/L INC) CO2 27 LAB 4451895(LO 70-100 mg/dL INC) Glucose High 117 LAB 2686064(LO 8-26 mg/dL INC) BUN 25 LAB 4853682(LO 0.60-1.30 mg/dL INC) Creatinine 1.24 LAB 9845456(LO 8.1-10.1 mg/dL INC) Calcium 9.4 LAB 383372(USHA 5.0-19.0 mmol/L NC) Anion Gap 9.0 LAB 586510(USHA mOsm/kg NC) Osmolality-Calc 283 LAB 472982(USHA NC) Bun/CretRatio 20.2 TROPONIN RFX Collected: 09/24/2017 Status: F Source: [place] 8:19 PM [facility] REPOSITORY Order Comment: Trop Rfx Replaces Trop order TYPE CODE TESTS RESULT OUT OF REFERENCE UNITS RANGE LAB [id number](USHA ng/mL NC) Troponin <0.03 Result Comment: <0.04 Normal 0.04 - 0.50 Possible cardiac damage >0.50 Consistent with cardiac damage TROP POCT Collected: 09/24/2017 Status: F Source: [place] 8:09 PM [facility] REPOSITORY Order Comment: Troponin POCT added per lab protocol TYPE CODE TESTS RESULT OUT OF REFERENCE UNITS RANGE LAB [id number](USHA ng/mL NC) Troponin POCT <0.02 Result Comment: <0.4 : Negative 0.04 - 0.50 : Possible Cardiac Damage >0.5 : Consistent With Cardiac Damage CNDS Observed: 09/24/2017 Status: COMPLETED Source: [place] 6:49 PM [facility] REPOSITORY HNO ID: [id number] Author: Maranda Omer Service: Hospital Medicine Author [...] He has also had multiple admits at [facility] for chronic stoma herniation. He was seen [...] * FOLLOW-UP APPOINTMENTS ALREADY SCHEDULED WITH A [facility] PROVIDER: Future Appointments Date Time Provider Department Center 11/28/2017 4:00 PM Ro GARCIAGil LEATHA Wali [facility] DISCHARGE MEDICATION: Current Discharge Medication List CONTINUE [...] for Wheezing/Shortness of Breath. fluticasone (FLONASE) 1 Vulcan Use 1 Vulcan in the nose once daily as needed. [...] NURSING PROG Observed: 09/24/2017 Status: COMPLETED Source: [place] 5:49 PM [facility] REPOSITORY HNO ID: [id number] Author: Poncho (Rn) Abdullahi, RN Service: (none) Author Type: Registered Nurse Type: Nursing Progress Note Filed: 09/24/2017 5:53 PM Note Text: Patient not in room or bathroom at this time; belongings not in room and telemetry on bed. Called stat line to page code rei. Stat line stated they would call security. IV was never removed by this RN. Dr Omer made aware of situation. NURSING PROG Observed: 09/24/2017 Status: COMPLETED Source: [place] 11:27 AM [facility] REPOSITORY HNO ID: [id number] Author: Poncho (Rn) Abdullahi, RN Service: (none) Author Type: Registered Nurse Type: [...] this time. Patients nitro locked up in 2117 med box outside of patients room. PROGRESS Observed: 09/24/2017 Status: COMPLETED Source: [place] 8:40 AM CLINIC OTHER CAMPUS REPOSITORY HNO ID: [id number] Author: Hawa Costa Service: Pain Management Author Type: Physician Type: Progress Notes Filed: 09/24/2017 10:51 AM Note Text: Maxx Knott [id number] 1950 PAIN MANAGEMENT TEAM PAIN DIAGNOSIS: CBP, [...] just hospitalized 09/20 for a day at [facility] for his chronic hernia/stoma prolapse- no acute surgical intervention was needed. He also was hospitalized 09/09-09/11 for chest pain; he had unremarkable lexiscan about a month ago. Pt has frequent hospitalizations and ER visits. Pt goes to the [facility] for his medical care. His chronic pain issues include his back and chronic chest wall pain. 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 Review of [place] Automated RX Reporting System shows multiple, frequent small quantity opiate Rxs for either Oxycodone, Percocet or Palisade. Most recent ones include: Dispensed Written Strength Form Quantity Refills Days Supply Provider Pharmacy OXYCODONE HCL 5 MG TABLET 09/20/2017 09/20/2017 12 0 3 VICKIE ISBELL [facility] HYDROCODONE-ACETAMIN 5-325 MG 09/16/2017 09/16/2017 4 0 1 DO GARCIA REMUS A [facility] OXYCODONE HCL 5 MG TABLET 08/17/2017 08/17/2017 9 0 3 YUE HUTCH[facility]SON [facility] OXYCODONE-ACETAMINOPHEN 5-325 08/06/2017 08/05/2017 15 0 5 DO BERMUDEZ DAVID C [facility]. MEDICATIONS Current Facility-Administered Medications: morphine 1 mg injection 1 mg INTRAVENOUS q 4 H PRN Hawa K Scantling morphine 2 mg injection 2 mg INTRAVENOUS q 4 H PRN Hawa K Scantling NaCl 0.9% iv infusion 5-30 mL/hr INTRAVENOUS CONTINUOUS Yassine Akhil Lockett isosorbide mononitrate ER 30 mg tab(s) (IMDUR) 30 mg ORAL DAILY Yassine Akhil Lockett 30 mg at 09/24/17 0847 acetaminophen 325-650 mg tab(s) (TYLENOL) 325-650 mg ORAL q 4 H PRN Hawa K Scantling 650 mg at 09/23/172135 losartan 100 mg tab(s) (COZAAR) 100 mg ORAL DAILY Ratna Colonon 100 mg at 09/24/1747 furosemide 40 mg tab(s) (LASIX) 40 mg ORAL DAILY Ratna Colonon 40 mg at 09/24/17 0846 albuterol HFA 90 mcg/actuation 2 Puff (PROVENTIL HFA, VENTOLIN HFA) 2 Puff INHALATION q 4 H PRN Ratna Chavez nitroglycerin sublingual 0.4 mg tab(s) (NITROQUICK) 0.4 mg SUBLINGUAL PRN Ratna Chavez gabapentin 600 mg cap(s) (NEURONTIN) 600 mg ORAL AT BEDTIME Ratna Colonon 600 mg at 09/23/172135 metoprolol succinate ER 100 mg tab(s) (TOPROL XL) 100 mg ORAL DAILY Ratna Colonon 100 mg at 09/24/1747 QUEtiapine 400 mg tab(s) (SEROquel) 400 mg ORAL AT BEDTIME Ratna Chavez 400 mg at 09/23/172135 amLODIPine 10 mg tab(s) (NORVASC) 10 mg ORAL DAILY Ratna Chavez 10 mg at 09/24/17 0846 cyclobenzaprine 10 mg tab(s) (FLEXERIL) 10 mg ORAL HS PRN Ratna Chavez 10 mg at 09/23/172135 aspirin, enteric coated 81 mg tab(s) (ASPIRIN, ENTERIC COATED) 81 mg ORAL DAILY Ratna Chavez 81 mg at 09/24/17 0846 tamsulosin ER 0.4 mg cap(s) (FLOMAX) 0.4 mg ORAL DAILY Ratna Chavez 0.4 mg at 09/24/17 0847 ondansetron 4 mg tab(s) (ZOFRAN) 4 mg ORAL q 6 H PRN Ratna Chavez enoxaparin 40 mg injection (LOVENOX) 40 mg SUBCUTANEOUS DAILY Ratna Chavez 40 mg at 09/24/17 0847 pravastatin 40 mg tab(s) (PRAVACHOL) 40 mg ORAL AT BEDTIME Ratna Villegas Ahn 40 mg at 09/23/172135 Prescriptions Prior [...] (FLONASE) 50 mcg/actuation nasal spray Use 1 Vulcan in the nose once daily as needed. 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 - Peritonitis ([facility]) PAST SURGICAL HISTORY PAST SURGICAL HISTORY Procedure Laterality Date - APPENDECTOMY HX - COLOSTOMY 07/2016 Diverting Loop Colostomy of the Transverse Colon - HEART SURGERY HX triple bypass 10 yrs ago - PPM IMPLANT - STENT - CORONARY ALLERGIES Allergen Reactions - Altaseptic Unknown - Brilinta [Ticagrelo* Unknown - Crestor [Rosuvastat* Myalgia - Hctz [Amiloride-Hyd* Swelling - Moxifloxacin Swelling - Other Lake-3s Unknown brelinta - Ramipril Swelling Other reaction(s): [...] last ones 09/20 Oxycodone 5mg #12, 09/16 Palisade #4, 08/17 Oxycodone #9 Pain Regimen/Notes (Opiate [...] her to consider Comprehensive PM or [facility] [place] PM Continue Flexeril and Neurontin as ordered No Rx at discharge Hawa Costa MD PROGRESS Observed: 09/24/2017 Status: COMPLETED Source: [place] 7:46 AM CLINIC OTHER CAMPUS REPOSITORY O ID: [id number] Author: Maranda Omer Service: Hospital Medicine Author Type: Physician Type: Progress Notes Filed: 09/24/2017 7:50 AM Note Text: DEPARTMENT OF HOSPITAL MEDICINE PROGRESS NOTE SERVICE DATE: 09/24/2017 SERVICE TIME: 7:46 AM Hospital Medicine/Primary Attending: Maranda Omer, DO NIGHT AND WEEKEND COVERAGE: After 7pm please page [phone] CHIEF COMPLAINT: So So SUBJECTIVE: Pt seen and examined. Pt still with chest pain overnight. Was begging nursing yesterday afternoon to have pain meds. States that he does well at home (I doubt). States that [facility] is coming out next week. Per epic patient outreach has been unable to contact [...] nurse see patient. No further admits to [facility] or hospitals unless surgical issue 3. CHronic systolic CHF - compensated 4. CAD - cath on Sunday 5. HTN - stable 6. Chronic abdominal pain - no narcotics per pain management. APPRECIATE PAIN MANAGEMENT! 7. I question if the patient has the ability to truly care for himself at home. He has had frequent re admits between here and [facility] main campus. Will have PT OT eval patient VTE Prophylaxis: Lovenox 40mg Sub Q Daily Disposition: Home vs SNF Plan of care discussed with: Patient and RN SIGNATURE: Maranda Omer DO PATIENT NAME: Maxx Knott DATE: September 24, 2017 TIME: 7:46 AM PAGER/CONTACT #: [phone] NURSING PROG Observed: 09/24/2017 Status: COMPLETED Source: [place] 12:05 AM [facility] REPOSITORY HNO ID: [id number] Author: Stephanie (Rn) MITCHELL Barney Service: Nursing Author Type: Registered Nurse Type: Nursing Progress Note Filed: 09/24/2017 6:35 AM Note Text: Pt sitting on side of bed, fully dressed. Pt falling asleep during conversation, requesting prn pain meds. Explained tylenol dose frequency and encouraged pt to return to bed. Bed alarm on at this time. CONSULT Observed: 09/23/2017 Status: COMPLETED Source: [place] 8:25 AM [facility] REPOSITORY HNO ID: [id number] Author: Hawa Costa Service: Pain Management Author Type: Physician Type: Consults Filed: 09/23/2017 10:50 AM Note Text: Maxx Knott [id number] 1950 PAIN MANAGEMENT TEAM PAIN DIAGNOSIS: CBP, [...] just hospitalized 09/20 for a day at [facility] for his chronic hernia/stoma prolapse- no acute surgical intervention was needed. He also was hospitalized 09/09-09/11 for chest pain; he had unremarkable lexiscan about a month ago. Pt has frequent hospitalizations and ER visits. Pt goes to the [facility] for his medical care. His chronic pain issues include his back and chronic chest wall pain. 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 Review of [place] Automated RX Reporting System shows multiple, frequent small quantity opiate Rxs for either Oxycodone, Percocet or Palisade. Most recent ones include: Dispensed Written Strength Form Quantity Refills Days Supply Provider Pharmacy OXYCODONE HCL 5 MG TABLET 09/20/2017 09/20/2017 12 0 3 VICKIE ISBELL [facility] HYDROCODONE-ACETAMIN 5-325 MG 09/16/2017 09/16/2017 4 0 1 DO GARCIA REMUS A [facility] OXYCODONE HCL 5 MG TABLET 08/17/2017 08/17/2017 9 0 3 YUE [facility] OXYCODONE-ACETAMINOPHEN 5-325 08/06/2017 08/05/2017 15 0 5 DO ABBIE, RATNA [facility] MEDICATIONS Current Facility-Administered Medications: morphine 4 mg injection 4 mg INTRAVENOUS q 3 H PRN Ratna Colonon 4 mg at 09/22/172108 oxyCODONE-acetaminophen 5-325 mg 1-2 tablet (PERCOCET) 1-2 tablet ORAL q 6 H PRN Ratna Chavez 2 tablet at 09/22/172230 losartan 100 mg tab(s) (COZAAR) 100 mg ORAL DAILY Ratna Colonon 100 mg at 09/22/172220 furosemide 40 mg tab(s) (LASIX) 40 mg [...] (PRAVACHOL) 40 mg ORAL AT BEDTIME Ratna Villegas Ahn 40 mg at 09/22/172220 Prescriptions Prior [...] (FLONASE) 50 mcg/actuation nasal spray Use 1 Vulcan in the nose once daily as needed. 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 CBC: Recent Labs 09/23/17 0152 WBC 8.02 RBC 4.00* HB 11.9* HCT 36.5* PLT 290 MCV 91.3 MCH 29.8 MPV 10.1 RDW 13.4 CMP: Recent Labs 09/23/17 0152 NA 141 K 3.6 CHLOR 107 CO2 [...] last ones 09/20 Oxycodone 5mg #12, 09/16 [place]ade #4, 08/17 Oxycodone #9 Pain Regimen/Notes (Opiate use last 24 hrs): Morphine 4mg x1 Percocet 5/325 2 x 2 Flexeril 10mg po qhs x 1 Neurontin 600mg po qhs PLAN: Await Cardiology input; per chart recent stress test negative Pt to f/u [facility] for chronic hernia/stoma prolapse of loop transverse colostomy- pt stands surgery planned Nov Do not recommend chronic opiates- if pt wishes to establish outpatient PM, I told her to consider Comprehensive PM or [facility] [place] PM Continue Flexeril and Neurontin as ordered No Rx at discharge Discontinue Morphine IV and Percocet Discussed with RN Thank you for this consult. Hawa Costa MD PROGRESS Observed: 09/23/2017 Status: COMPLETED Source: [place] 8:20 AM CLINIC OTHER CAMPUS REPOSITORY HNO ID: [id number] Author: Maranda Omer Service: Hospital Medicine Author Type: Physician Type: Progress Notes Filed: 09/23/2017 8:26 AM Note Text: DEPARTMENT OF HOSPITAL MEDICINE PROGRESS NOTE SERVICE DATE: 09/23/2017 SERVICE TIME: 8:20 AM Hospital Medicine/Primary Attending: Maranda Omer, DO NIGHT AND WEEKEND COVERAGE: After 7pm please page [phone] CHIEF COMPLAINT: Chest pain SUBJECTIVE: Pt seen and examined. Currently on CPAP. Still with some chest pain. Known to me from prior admission. NO sob, no nausea or vomiting. Has had readmit at [facility] main for his stoma (this is a [...] reviewed for today's visit: CBC: Recent Labs 09/23/17 0152 WBC 8.02 RBC 4.00* HB 11.9* HCT 36.5* PLT 290 MCV 91.3 MCH 29.8 MPV 10.1 RDW 13.4 Coags: No results for input(s): INR, APTT in the last 24 hours. Invalid input(s): PT BMP: Recent Labs 09/23/17 015 NA 141 K 3.6 CHLOR 107 CO2 29 BUN 17 CREAT 0.98 GLUC 104* CMP: Recent Labs 09/23/17 0152 NA 141 K 3.6 CHLOR 107 CO2 [...] 1.9 P 3.4 Renal Panel: Recent Labs 09/23/172 CREAT 0.98 BUN 17 GLUC 104* CA [...] had frequent re admits between here and [facility]. Will have PT OT eval patient ? VTE Prophylaxis: Lovenox 40mg Sub Q Daily Disposition: Home vs SNF Plan of care discussed with: Patient and Consultants: Cardio SIGNATURE: Maranda Omer DO PATIENT NAME: Maxx Knott DATE: September 23, 2017 TIME: 8:20 AM PAGER/CONTACT #: [phone] CONSULT Observed: 09/23/2017 Status: COMPLETED Source: [place] 8:00 AM CLINIC OTHER CAMPUS REPOSITORY HNO ID: [id number] Author: Yassine Lockett Service: Cardiovascular Disease Author Type: Physician Type: Consults Filed: 09/23/2017 8:17 AM Note Text: CARDIOLOGY CONSULT NOTE REASON FOR CONSULT: Chest pain REQUESTING PHYSICIAN: Dr Omer. CC: HPI: Mr. Knott is a 67 year old male with history of Established CAD, s/p CABG z3 At the DC 2002. 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 [...] EK lead EKG shows normal sinus rhythm. ME and QT intervals are normal. There are [...] for Sunday. 2. Coronary artery disease involving [place] coronary artery without angina pectoris, unspecified whether [place] or transplanted heart - ICD9: 414.01, ICD10: [...] of our mutual patient. Yassine Lockett MD, [facility]. September 23, 2017 Pager: [phone] HEMOGRAM/DIFF Collected: 09/23/2017 Status: F Source: [facility] 1:52 AM HEALTH SYSTEM REPOSITORY TYPE CODE [...] 2.23 LAB MONON(LOIN 0.30-0.82 thou/cmm C) Abs. Wirt 0.58 LAB EOSN(LOINC 0.04-0.54 thou/cmm ) Abs. Eosin 0.23 LAB BASON(LOIN 0.01-0.08 thou/cmm C) Abs. Baso 0.03 Performed By: #### CBCD1 #### [place] [address] TROPONIN I Collected: 09/23/2017 Status: F Source: [facility] 1: AM HEALTH SYSTEM REPOSITORY TYPE CODE TESTS RESULT OUT OF REFERENCE UNITS RANGE LAB TROP(LOINC) 0.015-0.045 ng/ml Troponin I < 0.015 Performed By: #### TROP #### [place] [address] BASIC PANEL Collected: 09/23/2017 Status: F Source: [address] SYSTEM REPOSITORY TYPE CODE TESTS RESULT [...] Gap 9 Performed By: #### P8 #### [place] [address] MAGNESIUM BLOOD Collected: 09/23/2017 Status: F Source: [address] SYSTEM REPOSITORY TYPE CODE TESTS RESULT OUT OF REFERENCE UNITS RANGE LAB MAG(LOINC) 1.6-2.6 mg/dL Magnesium Blood 1.9 Performed By: #### MAG #### [place] [address] PHOSPHORUS BLOOD Collected: 09/23/2017 Status: F Source: [facility] 1:52 AM HEALTH SYSTEM REPOSITORY TYPE CODE TESTS RESULT OUT OF REFERENCE UNITS RANGE LAB PHOS(LOINC 2.5-4.9 mg/dL ) Phosphorus Blood 3.4 Performed By: #### PHOS #### [place] [address] MDRD GFR Collected: 09/23/2017 Status: F Source: [facility] 1:52 AM HEALTH SYSTEM REPOSITORY TYPE CODE TESTS RESULT OUT OF RANGE REFERENCE UNITS LAB GFRFN(LOINC >60mL/min/1.73m ) 2 eGFR >60 Result Comment: If the patient is , multiply the result by 1.210. Performed By: #### GFR #### [place] [address] TROPONIN I Collected: 09/22/2017 Status: F Source: [facility] 10:20 PM HEALTH SYSTEM REPOSITORY TYPE CODE TESTS RESULT OUT OF REFERENCE UNITS RANGE LAB TROP(LOINC) 0.015-0.045 ng/ml Troponin I < 0.015 Performed By: #### TROP #### [place] [address] HISTORY PHYSICAL Observed: 09/22/2017 Status: COMPLETED Source: [place] 9:11 PM CLINIC OTHER CAMPUS REPOSITORY O ID: [id number] Author: Ratna Chavez Service: Hospital Medicine Author Type: Physician Type: HANDP Filed: 09/22/2017 9:29 PM Note Text: DEPARTMENT OF HOSPITAL MEDICINE [facility] HISTORY AND PHYSICAL EXAMINATION SERVICE DATE: [...] but no surgical recommendation was made (at [facility]). 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 ALLERGIES Allergen Reactions - Altaseptic Unknown - Brilinta [Ticagrelo* Unknown - Crestor [Rosuvastat* Myalgia - Hctz [Amiloride-Hyd* Swelling - Moxifloxacin Swelling - Other Lake-3s Unknown brelinta - Ramipril Swelling Other reaction(s): [...] nonoperative at this time per CRS at [facility] Chronic systolic congestive heart failure (HCC) POA: [...] Chavez MD, Decisional Capacity: full Code Status: Etl Manager Spent on Advance Care Plannin minutes Total time 30 minutes during this encounter, including chart review, discussion with nursing staff and/or other providers, documentation, service order taker, and teqv-gt-lhnr time with patient. Of this time, greater [...] GLUC 116* CA 9.3 ECU TROPONIN I ([facility] ED) [[id number]] Collected: 09/22/17 1625 Updated: 09/22/17 1721 Specimen [...] AND WEEKEND COVERAGE: After 7pm please page [phone] ED PROV NOTE Observed: 09/22/2017 Status: COMPLETED Source: [place] 7:34 PM CLINIC OTHER CAMPUS REPOSITORY O ID: [id number] Author: Aneudy Hsieh MD Service: Emergency Medicine [...] 8/10 that raditates to the left. Hx FL x 2. 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 Initial concern for FL, ACS, stomal strangulation. EKG shows atrial sensed [...] mention that he was recently admitted to [facility] for this abdominal pain and concerns [...] 1 VIEW Observed: 09/22/2017 Status: F Source: [facility] 5:02 PM HEALTH SYSTEM REPOSITORY Performed at [facility] APPROVED BY: YONAS NICKERSON [...] PROV NOTE Observed: 09/22/2017 Status: COMPLETED Source: [place] 5:00 PM CLINIC OTHER CAMPUS REPOSITORY HNO ID: [id number] Author: Radhika Faust MD Service: Emergency Medicine [...] ED NOTE Observed: 09/22/2017 Status: COMPLETED Source: [place] 4:33 PM CLINIC OTHER CAMPUS REPOSITORY HNO ID: [id number] Author: Tracey (Medic) Dwight Chong Service: (none) Author Type: Assistant Infant Teacher and Media Account Executive Type: ED Notes Filed: 09/22/2017 4:33 PM Note Text: Bed: ED-09 Expected date: 09/22/17 Expected time: 4:12 PM Means of arrival: Brian HEIN Comments: brian cp/sob HEMOGRAM/DIFF Collected: 09/22/2017 Status: F Source: [facility] 4:25 PM HEALTH SYSTEM REPOSITORY TYPE CODE [...] 1.50 LAB MONON(LOIN 0.30-0.82 thou/cmm C) Abs. Wirt 0.41 LAB EOSN(LOINC 0.04-0.54 thou/cmm ) Abs. Eosin 0.13 LAB BASON(LOIN 0.01-0.08 thou/cmm C) Abs. Baso 0.03 Performed By: #### CBCD1 #### [place] [address] BASIC PANEL Collected: 09/22/2017 Status: F Source: [facility] 4:25 PM HEALTH SYSTEM REPOSITORY TYPE CODE [...] Gap 9 Performed By: #### P8 #### [place] [address] MDRD GFR Collected: 09/22/2017 Status: F Source: [facility] 4:25 PM HEALTH SYSTEM REPOSITORY TYPE CODE TESTS RESULT OUT OF RANGE REFERENCE UNITS LAB GFRFN(LOINC >60mL/min/1.73m ) 2 eGFR >60 Result Comment: If the patient is , multiply the result by 1.210. Performed By: #### GFR #### [place] [address] ECU TROPONIN I Collected: 09/22/2017 Status: F Source: [facility] 4:25 PM HEALTH SYSTEM REPOSITORY TYPE CODE TESTS RESULT OUT OF REFERENCE UNITS RANGE LAB ERTRP(LOINC 0.015-0.045 ng/ml ) ECU Troponin I < 0.015 Performed By: #### ERTRP #### [facility] [address] [place] [address] EKG Observed: 09/22/2017 Status: F Source: [place] 4:20 PM CLINIC OTHER CAMPUS REPOSITORY NAME : MAXX KNOTT PID : [id number] : 1950 Gender : Male Race : [...] ms QTC Calculation(Bezet) : 414 ms P Powderhorn : 55 degrees R Powderhorn : 38 degrees T Powderhorn : 54 degrees Test Reason : Location : 21 : 2100 211 Overread By : MD GOODSON G Editted By : MD GOODSON G Referred By : , Acquired by : Maranda Manzo 12 LEAD ELECTROCARDIOGRAM Observed: 09/21/2017 Status: F Source: [place] 10:55 AM [facility] REPOSITORY [facility] Cardiovascular Services [address] [place] [address] 12 Lead EKG 09/19/17 1833 MR#: [id number] Acct: [id number] Name: MAXX KNOTT Rep #: [id number] : 1950 67 From: Kassandra Lundberg MD [...] Abnormal ECG Confirmed by LAUREEN METCALF, KASSANDRA ([id number]), news assignment editor LAMAR AHN ([id number]) on 09/21/2017 10:55:21 AM Referred By: NAZIA Confirmed By:KASSANDRA LUNDBERG MD 09/21/17 1055 Date Kassandra Lundberg MD CC: [facility]; Gabriel Mandujano MD Signed CASE MANAGEM Observed: 09/20/2017 Status: COMPLETED Source: [place] 4:04 PM [facility] REPOSITORY O ID: [id number] Author: Aida (Rn) MITCHELL Powell Service: Care Management Author Type: Registered Nurse Type: Care Mgt Progress Note Filed: 09/20/2017 4:09 PM Note Text: CARE MANAGEMENT DISCHARGE NOTE SERVICE DATE: 09/20/2017 SERVICE TIME: 4:04 PM LOS: 1 day Admission Date: 09/20/2017 DISCHARGE ARRANGEMENT (list agency and phone number) Home care Provider: [facility] CAREGIVER ASSESSMENT: Caregiver is ready, willing and able to meet the patient's needs as recommended by the inter-professional team? Yes Patient's transition needs and plan for meeting these needs: Home with Care Does the patient have an acute stroke diagnosis, or has the patient had a stroke during this admission? No HANDOFF COMMUNICATION: [facility] / [facility] - HomeCare, Hospice and Palliative Care (Central Intake) TRANSPORTATION ARRANGEMENTS: [facility] [phone] ADDITIONAL CONTACT RESOURCES: N/A Reviewed discharge instructions, patient discharged home with skilled home care.[facility] / [facility] - HomeCare, Hospice and Palliative Care (Central Intake) to provide home care services. Start of care 09/21/17.Agency contact information given to the patient. Discharge instructions by nursing staff. set transport with Elissa Limnurys SIGNATURE: Adia Powell RN PATIENT NAME: Maxx Knott DATE: September 20, 2017 TIME: 4:04 PM PAGER/CONTACT #: [phone] CASE MANAGEM Observed: 09/20/2017 Status: COMPLETED Source: [place] 4:04 PM [facility] REPOSITORY HNO ID: [id number] Author: Jason Morrow MD Service: General Internal [...] the process utilized to ensure compliance with [facility] policy regarding Inpatient Admission and Observation Services. [...] ALLIED HEALTH Observed: 09/20/2017 Status: COMPLETED Source: [place] 3:08 PM [facility] REPOSITORY HNO ID: [id number] Author: Ally Villegas RN Service: Wound/Ostomy Author Type: Registered Nurse [...] colostomy - pt wearing intact Pouching System: Dara Hollihesive washer cut in half with radial slits from 3-9 o'clock and from 9-3 o'clock, paste caulking, Coloplast post op window pouch. Time Increment: 30 minutes Ally Villegas, JULION, RN, CWOCN, RVT, WOC nursing WO Nursing - Please place consult via [employer]. Thank you. (M-F: [phone]; Weekends AND Holidays: [phone]). CNDS Observed: 09/20/2017 Status: COMPLETED Source: [place] 12:59 PM [facility] REPOSITORY HNO ID: [id number] Author: Vickie Isbell (Pa) Service: Colorectal Author Type: Physician Title Insurance Examiner Type: Discharge Summaries Filed: 09/20/2017 9:10 PM Note Text: Attestation signed by Hannah Grant at 09/21/2017 9:21 AM This patient has a chronic hernia/stoma prolapse. As written previously, he should NOT be admitted to colorectal surgery unless he has a nicola surgical issue. He may follow up with Dr. Yoo as previously planned Hannah Grant MD, [facility] Staff Department of Colorectal Surgery [phone] DISCHARGE SUMMARY PATIENT NAME: Maxx Knott ADMISSION [...] to schedule a follow-up appointment closer to [place]. Labs and Procedures Pending at Discharge: No [...] (FLONASE) 50 mcg/actuation nasal spray Use 1 Vulcan in the nose once daily as needed. [...] future appointments. SIGNATURE: Vickie Isbell PA-C PAGER: [phone] DATE: September 20, 2017 TIME: 9:06 PM CASE MGT INIT Observed: 09/20/2017 Status: COMPLETED Source: [facility] 12:22 PM CLINIC MAIN CAMPUS REPOSITORY HNO ID: [id number] Author: Aida KingRn) MITCHELL Powell Service: Care Management Author Type: Registered Nurse Type: Care Mgt Initial Assessment Filed: 09/20/2017 2:43 PM Note Text: CARE MANAGEMENT: ASSESSMENT AND DISCHARGE PLAN SERVICE DATE: 09/20/2017 SERVICE TIME: 12:22 PM PRIMARY CARE PHYSICIAN: Bijan Perez MD ADMISSION STATUS: Inpatient Needs Prior to Discharge: To Be Determined 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 No Advance Directive: Current Advance Directive: None Watch Caser Assisted with AD Completion: Yes Action: Patient [...] Walker Has the Patient Been in a Senior Living Facility in the Past 30 days? No SOCIAL: Living Arrangement: Home Lives With: Brother Financial Resources: Retired Primary Contact: Extended Emergency Contact Information Primary Emergency Contact: Mary Knott Address: [address] [place] [address] Mobile Relation: Brother Supportive: Yes Other Important [...] 0 I feel financially burdened by my bjm-vl-fleide expenses for my prescription medication: Agree somewhat [...] Patient Financial Disclosure Provided Preference: Resume with [facility] Home Care Per Vickie FERRARA pg# [phone] anticipated discharge home with skilled home care [...] 20, 2017 TIME: 12:22 PM PAGER/CONTACT #: [phone] 2:38 PM Taylor Cazares to provide discharge transpor pickup today @ 4 pm. Nurse assigned to the patient and Vickie FERRARA aware. C DIFFICILE PCR Collected: 09/20/2017 Status: F Source: [place] 6:28 AM [facility] REPOSITORY TYPE CODE TESTS RESULT OUT OF REFERENCE UNITS RANGE LAB CDFRES C difficile PCR Negative for C. difficile toxin by PCR Performed By: #### CDPCR #### [facility] [address] [place] [address] CBC AND DIFFERENTIAL Collected: 09/20/2017 Status: F Source: [place] 6:07 AM [facility] REPOSITORY TYPE CODE TESTS RESULT [...] k/uL Abs Lymph 2.49 LAB AMONO % Wirt% 8.7 LAB AAMONO <0.87 k/uL Abs Wirt 0.75 LAB AEOS % Eosin% 2.0 LAB AAEOS <0.46 k/uL Abs Eosin 0.17 LAB ABASO % Baso% 0.5 LAB AABASO <0.11 k/uL Abs Baso 0.04 LAB AUNRBC 0 /100 WBC NRBCs 0.0 LAB ABNRBC <0.01 k/uL Absolute nRBC <0.01 LAB DTYP DTYPE Auto Diff Performed By: #### CBCDIF, PT, PTT, LACT, CMP, MG1, PHOS #### [facility] [address] [place], [place] [address] PROTIME Collected: 09/20/2017 Status: F Source: [place] 6:07 AM [facility] REPOSITORY TYPE CODE TESTS RESULT [...] to 3.5 (target INR of 3). Lorelei SOL, et al. Chest 2012, 141:7S-47S Teofilo ORTIZ et al. [facility] 2017, 70: 252-289 Performed By: #### CBCDIF, PT, PTT, LACT, CMP, MG1, PHOS #### [place] [address] APTT Collected: 09/20/2017 Status: F Source: [place] 6:07 [facility] REPOSITORY TYPE CODE TESTS RESULT OUT [...] laboratory APTT reagent in use throughout the [facility]. Performed By: #### CBCDIF, PT, PTT, LACT, CMP, MG1, PHOS #### [place] [address] LACTATE Collected: 09/20/2017 Status: F Source: [place] 6:[address] [place] [address] REPOSITORY TYPE CODE TESTS RESULT OUT OF REFERENCE UNITS RANGE LAB LACT 0.5-2.2 mmol/L Lactate 0.7 Performed By: #### CBCDIF, PT, PTT, LACT, CMP, MG1, PHOS #### [place] [address] COMP METABOLIC PANEL Collected: 09/20/2017 Status: F Source: [place] 6:07 [facility] REPOSITORY TYPE CODE TESTS RESULT OUT [...] PT, PTT, LACT, CMP, MG1, PHOS #### [facility] [employer] [address] [place], [place] [address] MAGNESIUM Collected: 09/20/2017 Status: F Source: [place] 6:07 AM [facility] REPOSITORY TYPE CODE TESTS RESULT OUT OF REFERENCE UNITS RANGE LAB MG 1.7-2.3 mg/dL Magnesium 2.0 Performed By: #### CBCDIF, PT, PTT, LACT, CMP, MG1, PHOS #### [facility] [address] [place] [address] PHOSPHORUS Collected: 09/20/2017 Status: F Source: [place] 6:07 AM [facility] REPOSITORY TYPE CODE TESTS RESULT OUT OF REFERENCE UNITS RANGE LAB PHOS 2.7-4.8 mg/dL Phosphorus 2.7 Performed By: #### CBCDIF, PT, PTT, LACT, CMP, MG1, PHOS #### [facility] [address] [place] [address] TYPE AND SCREEN Collected: 09/20/2017 Status: F Source: [place] 6:07 AM [facility] REPOSITORY TYPE CODE TESTS RESULT OUT OF REFERENCE UNITS RANGE LAB %ABR O ABO/RH(D) POSITIVE LAB % Antibody NEG Screen Performed By: #### TSCR #### [place] [address] NURSING PROG Observed: 09/20/2017 Status: COMPLETED Source: [place] 3:55 AM [facility] REPOSITORY HNO ID: [id number] Author: Aguila (Rn) MITCHELL Hay Service: (none) Author Type: Registered Nurse Type: Nursing Progress Note Filed: 09/20/2017 6:07 AM Note Text: Nursing Progress Note Patient Name: Maxx Knott Patient Location: [place] [address] Transfer Note: Patient transferred into room/unit H51-30 in stable condition. Actions taken: Oriented to room and call light. Educated on diet, meds, IS, PAS and nursing POC. Falls safety plan initiated and reviewed, bed alarm on at this time. Will continue to hourly round and monitor patient. This note was completed by: Aguila Hay RN HISTORY PHYSICAL Observed: 09/20/2017 Status: COMPLETED Source: [place] 3:46 AM [facility] REPOSITORY HNO ID: [id number] Author: Jessica Summers Service: General Surgery Author [...] SERVICE DATE: 09/20/2017 SERVICE TIME: 3:46 AM [facility] 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 [...] [Amiloride-Hyd* Swelling - Moxifloxacin Swelling - Other Lake-3s Unknown brelinta - Ramipril Swelling Other reaction(s): [...] discuss about further options. 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 Grant SIGNATURE: MD Jessica Galan MD PATIENT NAME: Maxx Knott DATE: September 20, 2017 TIME: 3:46 AM EMERGENCY DEPARTMENT Observed: 09/20/2017 Status: F Source: [place] SUMMARY 1:24 AM [facility] REPOSITORY [facility] Medical Records Department [address] [facility] [place] [address] Emergency Department Summary 09/20/17 0005 MR#: [id number] Acct: [id number] Name: MAXX KNOTT Rep #: [id number] : 1950 67 From: Gabriel Mandujano MD PCP: [place], [place] Status: REG ER - ER Visit Summary Date of Service: 09/20/17 Chief Complaint: Abdominal pain and chest pain History of Present Illness: The patient is a 67 M who goes to the [facility]. Patient reports that he has a history of a colostomy at [facility] 1 year ago for diverticulitis. 3 days [...] heart catheterization was in October [address] [facility] and he got a stent. Physical Examination: [...] tertiary care center. He was discussed with [facility] and will be transferred there for further evaluation and treatment. Disposition: Transferred in stable condition. Impression: 1. Stomal prolapse. 2. Partial small bowel obstruction. 3. Chest pain. 4. History of coronary artery disease. This note was generated with [employer] dictation software. It may contain incorrect words, spelling, and punctuation that were not noted in review of the chart prior to signing ED Disposition - Plan for ED Patient: Chief Complaint: Chest Pain Referrals: [facility] [Primary Care Provider] - What to do if you have Problems For any increased pain, shortness of breath, bleeding, nausea or vomiting, chest pain, or any unexpected problems, contact your Primary Care Provider. Call [facility] ([phone]) or report to the closest Emergency Room. Call 911 if necessary. 09/20/17 0124 <Electronically signed by Gabriel Mandujano MD> Date Gabriel Mandujano MD Cosigner Signature (If Indicated): Date CC: [facility] TROPONIN-I Collected: 09/19/2017 Status: F Source: [place] 11:31 PM [facility] REPOSITORY Order Comment: 'TROP' Serial specimen #1, #2 or #3: 2 TYPE CODE TESTS RESULT OUT OF RANGE REFERENCE UNITS LAB L501.4010 <0.045 ng/mL Normal < 0.015 TROPONIN-I Result Comment: TROPONIN-I EXPECTED VALUES <0.045 Negative 0.045 - 0.590 Consistent with Cardiac Damage > OR = 0.600 Critical Value Not every elevated troponin is indicative of FL. These values should be used with clinical judgement in examining the patient's clinical picture for diagnosis. To establish a diagnosis of FL versus myocardial injury, there must be a demonstrated rise and/or fall in the troponin values, in addition to ischemic symptoms, EKG changes, new regional wall motion abnormality, and/or angiographical evidence. PLEASE NOTE: REFERENCE RANGES EDITED 17 Performed By: #### L501.4010 #### [facility] [address] [place], [address] CBC W/DIFF, AUTOMATED Collected: 09/19/2017 Status: F Source: [place] 7:40 PM [facility] REPOSITORY TYPE CODE TESTS RESULT OUT [...] Lymph 1.79 Performed By: #### L100.0100 #### [facility] [address] [place], [address] BASIC METABOLIC Collected: 09/19/2017 Status: F Source: [place] PROFILE (BMP) 7:40 PM [facility] REPOSITORY TYPE CODE TESTS RESULT OUT [...] 5 Performed By: #### L500.2500, L501.4010 #### [facility] [address] [facility] [place], [address] TROPONIN-I Collected: 09/19/2017 Status: F Source: [place] 7:40 PM [facility] REPOSITORY TYPE CODE TESTS RESULT OUT OF RANGE REFERENCE UNITS LAB L501.4010 <0.045 ng/mL Normal < 0.015 TROPONIN-I Result Comment: TROPONIN-I EXPECTED VALUES <0.045 Negative 0.045 - 0.590 Consistent with Cardiac Damage > OR = 0.600 Critical Value Not every elevated troponin is indicative of FL. These values should be used with clinical judgement in examining the patient's clinical picture for diagnosis. To establish a diagnosis of FL versus myocardial injury, there must be a demonstrated rise and/or fall in the troponin values, in addition to ischemic symptoms, EKG changes, new regional wall motion abnormality, and/or angiographical evidence. PLEASE NOTE: REFERENCE RANGES EDITED 17 Performed By: #### L500.2500, L501.4010 #### [facility] [address] [facility] [place], [address] LACTIC ACID Collected: 09/19/2017 Status: F Source: [place] 7:40 PM [facility] REPOSITORY Order Comment: Yes/No query for Sepsis Lactate Rule Y TYPE CODE TESTS RESULT OUT OF RANGE REFERENCE UNITS LAB L503.6005 0.4-2.0 mmol/L Normal LACTIC ACID 1.3 Performed By: #### L503.6005 #### [facility] [address] [facility] [place], [address] CHEST 1 VIEW Observed: 09/19/2017 Status: F Source: [place] (PORTABLE) 6:58 PM [facility] REPOSITORY [facility] Imaging Services [address] [place] [address] Chest 1 View (Portable) MR#: [id number] Acct: [id number] Name: MAXX KNOTT Rep #: [id number] : 1950 M 67 From: Chele Mccullough MD PCP: [facility] Status: PRE ER Study: Chest 1 View (Portable) Date of Exam: 09/19/17 Exam# [id number] Ordering Dr: Gabriel Mandujano MD STUDY: X-RAY [...] 19:27 EDT , Service support , CC: [facility]; Gabriel Mandujano MD Geriatric Physical Therapist: Signed BRAIN/HEAD WITHOUT Observed: 09/19/2017 Status: F Source: [place] CONTRAST 6:58 PM [facility] REPOSITORY [facility] Imaging Services [address] [place] [address] Brain/Head without Contrast MR#: [id number] Acct: [id number] Name: MAXX KNOTT Rep #: [id number] : 1950 67 From: Chele Mccullough MD PCP: [place], [place] Status: REG ER Study: Brain/Head without Contrast Date of Exam: 09/19/17 Exam# [id number] Ordering Dr: Gabriel Mandujano MD STUDY: CT [...] 20:31 EDT , Service support , CC: [facility]; Gabriel Mandujano MD Geriatric Physical Therapist: Signed ABDOMEN/PELVIS WITH Observed: 09/19/2017 Status: F Source: [place] CONTRAST 6:58 PM [facility] REPOSITORY [facility] Imaging Services [address] [place] [address] Abdomen/Pelvis WITH Contrast MR#: [id number] Acct: [id number] Name: MAXX KNOTT Rep #: [id number] : 1950 M 67 From: Chele Mccullough MD PCP: [facility] Status: REG ER Study: Abdomen/Pelvis WITH Contrast Date of Exam: 09/19/17 Exam# [id number] Ordering Dr: Gabriel Mandujano MD STUDY: CT [...] 22:20 EDT , Service support , CC: [facility]; Gabriel Mandujano MD Geriatric Physical Therapist: Signed SR-BRAIN/HEAD WITHOUT Observed: 09/19/2017 Status: F Source: [place] CONTRAST IMPORT 12:00 AM [facility] REPOSITORY Images were obtained outside of [facility] [id number] CR-CHEST 1 VIEW Observed: 09/19/2017 Status: F Source: [place] (PORTABLE) IMPORT 12:00 AM [facility] REPOSITORY Images were obtained outside of [facility] [id number] SR-ABDOMEN/PELVIS WITH Observed: 09/19/2017 Status: F Source: [place] CONTRAST IMPORT 12:00 AM [facility] REPOSITORY Images were obtained outside of [facility] [id number] EMERGENCY DEPARTMENT Observed: 09/18/2017 Status: F Source: [place] SUMMARY 5:37 PM [facility] REPOSITORY [facility] Medical Records Department [address] [place] [address] Emergency Department Summary 09/18/17 1455 MR#: [id number] Acct: [id number] Name: MAXX KNOTT Rep #: [id number] : 1950 67 From: Chele Smith MD PCP: [place], [place] Status: DEP ER - ER Visit [...] spontaneously resolved This note was generated with Ping Communication dictation software. It may contain incorrect words, spelling, and punctuation that were not noted in review of the chart prior to signing ED Disposition - Plan for ED Patient: Chief Complaint: Abd Pain Referrals: [facility] [Primary Care Provider] - What to do if you have Problems For any increased pain, shortness of breath, bleeding, nausea or vomiting, chest pain, or any unexpected problems, contact your Primary Care Provider. Call [facility] ([phone]) or report to the closest Emergency Room. Call 911 if necessary. 09/18/17 5737 <Electronically signed by Chele Smith MD> Date Chele Smith MD Cosigner Signature (If Indicated): Date CC: [facility] Hospital DISCHARGE INSTRUCTION Observed: 09/18/2017 Status: F Source: [place] 5:37 PM [facility] REPOSITORY [facility] Medical Records Department [address] [place] [address] Discharge Instruction 09/18/17 1501 MR#: [id number] Acct: [id number] Name: MAXX KNOTT Rep #: [id number] : 1950 67 From: Chele Smith MD PCP: [facility] [place] Status: [facility] ER ED Disposition - Plan for ED Patient: Disposition: Home or Assisted Living Chief Complaint: Abd Pain Referrals: [facility] [Primary Care Provider] - As soon as possible Additional Instructions: Follow up with the DC If this re-0ccurs lay flat on your back until it resolves What to do if you have Problems For any increased pain, shortness of breath, bleeding, nausea or vomiting, chest pain, or any unexpected problems, contact your Primary Care Provider. Call [facility] ([phone]) or report to the closest Emergency Room. Call 911 if necessary. 09/18/17 173 <Electronically signed by Chele Smith MD> Date Chele Smith MD Cosigner Signature (If Indicated): Date CC: [facility] Hospital DISCHARGE INSTRUCTION Observed: 09/16/2017 Status: F Source: [place] 9:50 PM [facility] REPOSITORY [facility] Medical Records Department [address] [place] [address] Discharge Instruction 09/16/17 2148 MR#: [id number] Acct: [id number] Name: MAXX KNOTT Rep #: [id number] : 1950 67 From: Torsten Garcia DO PCP: [facility] [place] Status: [facility] ER ED Disposition - Plan for ED Patient: Chief Complaint: Wound Instructions: ED Abdominal Pain Unkn Cause Referrals: [facility] [Primary Care Provider] - Additional Instructions: see your surgeon within the next 3-5 days, use your binder, return if worsening pain, prolapse, bloody stool, or condition worsens What to do if you have Problems For any increased pain, shortness of breath, bleeding, nausea or vomiting, chest pain, or any unexpected problems, contact your Primary Care Provider. Call [facility] ([phone]) or report to the closest Emergency Room. Call 911 if necessary. 09/16/172149 <Electronically signed by Torsten Garcia DO> Date Torsten Garcia DO Cosigner Signature (If Indicated): Date CC: [facility] EMERGENCY DEPARTMENT Observed: 09/16/2017 Status: F Source: [place] SUMMARY 9:48 PM [facility] REPOSITORY [facility] Medical Records Department [address] [place] [address] Emergency Department Summary 09/16/172144 MR#: [id number] Acct: [id number] Name: MAXX KNOTT Rep #: [id number] : 1950 67 From: Torsten Garcia DO PCP: [place], [place] Status: REG ER - ER Visit [...] [Colostomy prolapse/herniation-reduced] This note was generated with Ping Communication dictation software. It may contain incorrect words, spelling, and punctuation that were not noted in review of the chart prior to signing ED Disposition - Plan for ED Patient: Chief Complaint: Wound Referrals: [facility] [Primary Care Provider] - What to do if you have Problems For any increased pain, shortness of breath, bleeding, nausea or vomiting, chest pain, or any unexpected problems, contact your Primary Care Provider. Call [facility] ([phone]) or report to the closest Emergency Room. Call 911 if necessary. 09/16/17 2143 <Electronically signed by Torsten Garcia DO> Date Torsten Garcia DO Cosigner Signature (If Indicated): Date CC: [facility] CBC W/DIFF, AUTOMATED Collected: 09/16/2017 Status: F Source: [place] 8:30 PM [facility] REPOSITORY TYPE CODE TESTS RESULT OUT [...] Lymph 1.83 Performed By: #### L100.0100 #### [facility] [address] [place], [place], [address] BASIC METABOLIC Collected: 09/16/2017 Status: F Source: [place] PROFILE ([facility]) 8:30 PM [facility] REPOSITORY TYPE CODE TESTS RESULT OUT [...] GAP 10 Performed By: #### L500.2500 #### [facility] [address] [facility]. [place], [place], [address] ALL[facility] HEALTH Observed: 09/14/2017 Status: COMPLETED Source: [place] 5:07 PM [facility] [place] REPOSITORY HNO ID: [id number] Author: Vianney (Rn) MITCHELL Key Service: Wound/Ostomy [...] for helping with pouch. Dory visiting nurse [phone]. Advised to call tomorrow morning, if any [...] PROV NOTE Observed: 09/14/2017 Status: COMPLETED Source: [place] 5:07 PM [facility] [place] REPOSITORY HNO ID: [id number] Author: Dian Mancera) ALEM Serrato Service: Emergency Medicine Author Type: Physician Title Insurance Examiner Type: ED Provider Notes Filed: 09/14/2017 5:53 [...] (abdominal aortic aneurysm) without rupture ([facility]) 05/13/[address] a/p - CAD (coronary artery disease) 2005 CAD s/p CABG x3 (POZC-MAZ-sawhuz, JYR-GCB-jfisbu, EFS-AW4-eocmjgod) (2006 at [place]) - Current every day smoker PT SMOKES A PIPE - Diverticulitis Perforated Diverticulitis - Diverticulitis of sigmoid colon 05/15/2017 Added automatically from request for surgery [id number] - Pacemaker 02/16/2017 s/p PPM () 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 - Peritonitis ([facility]) PAST SURGICAL HISTORY Procedure Laterality [...] [Amiloride-Hyd* Swelling - Moxifloxacin Swelling - Other Lake-3s Unknown brelinta - Ramipril Swelling Other reaction(s): [...] ED NOTE Observed: 09/14/2017 Status: COMPLETED Source: [place] 5:06 PM [facility] REPOSITORY HNO ID: [id number] Author: Angelo (Rn) MITCHELL Brice Service: Emergency Medicine Author Type: Registered Nurse Type: ED Notes Filed: 09/14/2017 5:06 PM Note Text: CBC AND DIFFERENTIAL Collected: 09/14/2017 Status: F Source: [place] 3:10 PM [facility] REPOSITORY TYPE CODE TESTS RESULT [...] k/uL Abs Lymph 1.61 LAB AMONO % Wirt% 8.2 LAB AAMONO <0.87 k/uL Abs Wirt 0.69 LAB AEOS % Eosin% 2.6 LAB AAEOS <0.46 k/uL Abs Eosin 0.22 LAB ABASO % Baso% 0.2 LAB AABASO <0.11 k/uL Abs Baso <0.03 LAB AUNRBC 0 /100 WBC NRBCs 0.0 LAB ABNRBC <0.01 k/uL Absolute nRBC <0.01 LAB DTYP DTYPE Auto Diff Performed By: #### CBCDIF, CMP #### [facility] [address] [place], [place] [address] COMP METABOLIC PANEL Collected: 09/14/2017 Status: F Source: [place] 3:10 PM [facility] [place] REPOSITORY TYPE CODE TESTS RESULT OUT OF [...] GFR. Performed By: #### CBCDIF, CMP #### [facility] [address] [place], [place] [address] PROGRESS Observed: 09/13/2017 Status: COMPLETED Source: [place] 9:07 AM [facility] REPOSITORY O ID: [id number] Author: Winston Leal Pharm-T Service: (none) Author Type: (none) Type: Progress Notes Filed: 09/13/2017 9:07 AM Note Text: TRANSITION CARE MANAGEMENT (TCM) INITIAL CONTACT Provider Action/FYI: ? Unable to complete medication history Patient unable to be reached after two or more unsuccessful outreach attempts. No further attempts to contact patient will be made. SUMMARY: -Pt discharged from [place] on 09/11/17. -Follow up appointment on None. -Medication review not done. -Admitted for SOB Winston Leal Pharm-T September 13, 2017 9:07 AM CNPTOUTREACH Observed: 09/12/2017 Status: COMPLETED Source: [place] 12:00 AM [facility] REPOSITORY Patient Outreach (PHRXRF) MAXX KNOTT ([id number]) 1950 M Date Time Provider Department 09/12/17 [...] will be made. SUMMARY: -Pt discharged from [place] on 09/11/17. -Follow up appointment on None. [...] Assessed Reason for Visit: Transition Of Care [4564] Cmt: Hospital Discharge 09/11/17 Prescriptions as of [...] neede* FLUTICASONE 50 MCG/ACTUATION * Use 1 Vulcan in the nose once * NITROGLYCERIN 0.4 [...] PROV NOTE Observed: 09/11/2017 Status: COMPLETED Source: [place] 2:21 PM CLIN[facility] OTHER [facility]AMPUS REPOSITORY HNO ID: [id number] Author: Rich Rogers MD Service: Emergency Medicine Author Type: Physician Type: ED Provider Notes Filed: 09/13/2017 2:13 PM Note Text: ED Provider Note Patient Name: Maxx Knott SERVICE DATE: 09/09/17 History Patient presents with: Shortness of Breath: States CP/SOB for 1 hour. Midsternal pain, no cough. No radiation. Some relief with NTG. +chills. +nausea. Also states his colostomy bag broke. Hx of FL with CABG. HPI Patient is a 67-year-old [...] artery disease) 2005 CAD s/p CABG x3 (PLQZ-GTG-dutsqn, ZVS-XFA-kqsyta, ONR-KI4-uwahkozc) (2006 at [place]) - Current every day smoker PT SMOKES A PIPE - Diverticulitis Perforated Diverticulitis - Diverticulitis of sigmoid colon 05/15/2017 Added automatically from request for surgery [id number] - Pacemaker 02/16/2017 s/p PPM () placed [...] [Amiloride-Hyd* Swelling - Moxifloxacin Swelling - Other Lake-3s Unknown brelinta - Ramipril Swelling Other reaction(s): [...] components within normal limits [facility] TROPONIN I ([facility] ED) PROBNP N-TERMINAL (AK,AV,EU,FV,HL,DEMARCO,MM,SP) MDRD GFR Procedures Medical Decision Making [facility] ED Course / Clinical Impression Clinical Impressions [...] 1413 PROGRESS Observed: 09/11/2017 Status: COMPLETED Source: [place] 2:03 PM [facility] OTHER [facility]AMPUS REPOSITORY O ID: [id number] Author: Luana (Rn) MITCHELL Sawyer Service: Wound/Ostomy Author Type: Registered Nurse Type: Progress Notes Filed: 09/11/2017 2:06 PM Note Text: WOUND CARE NURSE PROGRESS NOTE SERVICE DATE: 09/11/2017 SERVICE TIME: 1337 REASON FOR VISIT: Ostomy TIME SPENT (minutes): 30 Documentation from Wound Expert can be found in scanned documents. supervisor policy change clerks paged for pouch leaking. Pouch changed to RUQ colostomy. Supplies in room. Patient to be discharged today. supervisor policy change clerks to follow until discharge. SIGNATURE: Luana Sawyer RN PATIENT NAME: Maxx Knott DATE: September 11, 2017 TIME: 2:03 PM CONTACT#: [id number] CNDS Observed: 09/11/2017 Status: COMPLETED Source: [place] 1:40 PM [facility] OTHER CAMPUS REPOSITORY HNO ID: [id number] Author: Jarocho Dougherty Service: Hospital Medicine Author [...] troponin was negative. She was evaluated by communication specialist. He had hx of CAD s/p CABG [...] follow up with her general surgeon at [facility] for reversal. OTHER PROBLEMS/DIAGNOSIS: Principal Problem: Chest [...] to call for appointment?: Yes Poonam Riley [phone] [address] [facility] [address] [facility] [address] PCP Requested Referral Follow-Up Appointment Follow up as per appointment or sooner as needed. With: Colorectal surgeon When: In: november 2017 Patient/Parents to call for appointment?: Yes Follow-Up Appointment - Your PCP When: In 1 week Patient/Parents to call for appointment?: Yes Viral (Res) Kevin [phone] [address] [facility] [address] PCP Requested Referral Follow-Up Appointment - Your PCP With: Your PCP When: In 1 week Patient/Parents to call for appointment?: Yes Additional Provider to Provider Information: He came in with pressure like and dull retrosternal chest pain. His EKG was negative for acute ischemia and troponin was negative. She was evaluated by communication specialist. He had hx of CAD s/p CABG [...] needed. FOLLOW-UP APPOINTMENTS ALREADY SCHEDULED WITH A [facility] PROVIDER: No future appointments. DISCHARGE MEDICATION: Current [...] as instructed as needed. fluticasone (FLONASE) 1 Vulcan Use 1 Vulcan in the nose once daily as needed. [...] PM CONSULT Observed: 09/11/2017 Status: COMPLETED Source: [place] 11:47 AM [facility] OTHER [facility]AMPUS REPOSITORY HNO ID: [id number] Author: Tj Hawley Service: General Surgery Author [...] 2017 Added automatically from request for surgery [id number] - CAD (coronary artery disease) 05/16/2017 Priority: K Chronic Overview Note: Nuclear stress test >>No ischemia. EF=47% 2017 - Abdominal pain 08/16/2017 - Essential hypertension 07/22/2017 Chronic Assessment and Plan: Reducible non-obstructing parastomal hernia Outpatient f/u as planned. Tj Hawley MD, FACS Section of Trauma, Surgery Critical Care, and Acute Care Surgery Pager: [phone] Office: [phone] September 11, 2017 ========= REASON FOR CONSULT: [...] known to the Colorectal Surgery service at [facility] and has failed to follow up with them on numerous occasions. Patient states his stoma prolapses often an reduces on its own. Worse with coughing and straining. Denies obstructive symptoms. + SOB, CP, AP, N Denies fever, chills, V, D, C, Obstipation, Dysuria, Hematuria, Melena, Hematochezia FUNCTIONAL STATUS: Independent PAST MEDICAL HISTORY Diagnosis Date - AAA (abdominal aortic aneurysm) without rupture ([facility]) 05/13/[address] a/p - CAD (coronary artery disease) 2005 CAD s/p CABG x3 (GTOE-VST-yrppkz, NMP-OQP-zrfven, LOT-UH8-lmenpnmi) (2005 at [place]) - Current every day smoker PT SMOKES A PIPE - Diverticulitis Perforated Diverticulitis - Diverticulitis of sigmoid colon 05/15/2017 Added automatically from request for surgery [id number] - Pacemaker 02/16/2017 s/p PPM () 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 [...] [Amiloride-Hyd* Swelling - Moxifloxacin Swelling - Other Lake-3s Unknown brelinta - Ramipril Swelling Other reaction(s): [...] No history of dysuria, frequency or incontinence GLAZE SPRAYER: NA MUSCULOSKELETAL: Negative for joint pain or [...] to follow up with Colorectal Surgery at [facility], he states he has an appt in November - will sign off, call with questions/concerns D/W Dr. Hawley SIGNATURE: Isaias Tyson MD PATIENT NAME: Maxx Knott DATE: September 11, 2017 TIME: 11:47 AM PAGER/CONTACT #: [phone] Emergency General Surgery Service Pager: For questions or concerns Mon-Fri 6a-5p please page [phone]. After 5pm and on Weekends and Holidays, please page [phone] if in ICU or [phone] if on RNF. PROGRESS Observed: 09/10/2017 Status: COMPLETED Source: [place] 4:03 PM CLINIC OTHER CAMPUS REPOSITORY HNO ID: [id number] Author: Jarocho Dougherty Service: Hospital Medicine Author Type: Physician Type: Progress Notes Filed: 09/10/2017 4:17 PM Note Text: DEPARTMENT OF HOSPITAL MEDICINE PROGRESS NOTE SERVICE DATE: 09/10/2017 SERVICE TIME: 4:04 PM Hospital Medicine/Primary Attending: Jarocho Dougherty MD NIGHT AND WEEKEND COVERAGE: After 7pm please page [phone] CHIEF COMPLAINT: chest pain SUBJECTIVE: Reports chest [...] last 24 hours. No results found for: [facility] Assessment/Plan Patient Active Hospital Problem List: Chest [...] CASE MANAGEM Observed: 09/10/2017 Status: COMPLETED Source: [place] 2:05 PM CLIN[facility] OTHER CAMPUS REPOSITORY HNO ID: [id number] Author: Yane Munson (Rn), RN Service: Care [...] Pt drives ER Contact Mary Knott brother [phone] No PCP AD None, will complete eventually Barriers to med adherence: No PCP. Pt given list of [facility] PCP and contact number [phone]. Pt to call to schedule an appt Met with pt. No skilled post acute needs identified. Pt brother will transport home. 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 No SOCIAL: Living Arrangement: Home Lives With: brother Financial Resources: Retired Primary Contact: Extended Emergency Contact Information Primary Emergency Contact: Mary Knott Address: [address] [place] [address] [place] [address] OF [facility] Mobile Relation: Brother Supportive: Yes Other [...] 0 I feel financially burdened by my [id number]-qmjayu expenses for my prescription medication: Disagree completely [...] Pt drives ER Contact Mary Knott brother [phone] No PCP AD None, will complete eventually Barriers to med adherence: No PCP. Pt given list of [facility] PCP and contact number [phone]. Pt to call to schedule an appt Met with pt. No skilled post acute needs identified. Pt brother will transport home. SIGNATURE: Yane Munson RN PATIENT NAME: Maxx Knott DATE: September 10, 2017 TIME: 1:48 PM PAGER/CONTACT #: [phone] CONSULT PROG Observed: 09/10/2017 Status: COMPLETED Source: [place] 9:55 AM CLINIC OTHER CAMPUS REPOSITORY HNO ID: [id number] Author: Luana Sawyer (Rn), RN Service: Wound/Ostomy Author Type: Registered Nurse [...] bedside RN to bring to patient room. supervisor policy change clerks to follow. Patient requesting C at discharge to assist with pouch change at home. SIGNATURE: Luana Sawyer RN PATIENT NAME: Maxx Knott DATE: September 10, 2017 TIME: 9:55 AM CONTACT#: [id number] CONSULT Observed: 09/10/2017 Status: COMPLETED Source: [place] 9:09 AM CLINIC OTHER CAMPUS REPOSITORY HNO ID: [id number] Author: Poonam Riley Service: Cardiovascular Medicine Author Type: Physician Type: Consults Filed: 09/10/2017 1:53 PM Note Text: CARDIOLOGY CONSULT HISTORY AND PHYSICAL PLEASE DO NOT REMOVE FROM THE CHART OR MODIFY PRINTED COPY STAFF GRANTS MANAGER: Poonam Riley MD Requesting Provider: Dr. Maranda Omer MD Opinion/advice regarding: Continued chest pain despite pain treatment CHIEF COMPLAINT: Persistent chest pain HPI: This is a 67 year old male with PMH of CABG in 2001, PCI in 2016 who initially presented to the emergency department [...] artery disease) 2005 CAD s/p CABG x3 (QQUB-KVR-jidwba, WUV-YAB-aurzqx, UEU-TX8-tuadzguq) (2005 at [place]) - Current every day smoker PT SMOKES A PIPE - Diverticulitis Perforated Diverticulitis - Diverticulitis of sigmoid colon 05/15/2017 Added automatically from request for surgery [id number] - Pacemaker 02/16/2017 s/p PPM () placed [...] (FLONASE) 50 mcg/actuation nasal spray Use 1 Vulcan in the nose once daily as needed. [...] Crestor [Rosuvastatin Calcium]; Hctz [Amiloride-Hydrochlorothiazide]; Moxifloxacin; Other Lake-3s; Ramipril; Simvastatin; Voltaren [Diclofenac Sodium] COMPLETE REVIEW [...] Hyperlipidemia Continue with atorvastatin 10 mg daily. [facility] SIGNATURE:Dr. Hue Antonio DO PAGER:[phone] DATE of SERVICE: 09/10/2017 TIME of SERVICE: [...] status post CABG and recent PCI in 2017 who is presenting with atypical chest pain. [...] patient. Poonam Riley MD Cardiovascular Medicine Pager: [phone] September 10, 2017 TROPONIN I Collected: 09/10/2017 Status: F Source: [facility] 8:21 AM HEALTH SYSTEM REPOSITORY TYPE CODE TESTS RESULT OUT OF REFERENCE UNITS RANGE LAB TROP(LOINC) 0.015-0.045 ng/ml Troponin I < 0.015 Performed By: #### TROP #### [place] [address] PROGRESS Observed: 09/09/2017 Status: COMPLETED Source: [place] 6:33 PM CLINIC OTHER [place] REPOSITORY HNO ID: [id number] Author: Dolores Bourgeois (Rn), RN Service: Nursing Author Type: Registered Nurse Type: Progress Notes Filed: 09/09/2017 6:34 PM Note Text: I informed patient that dr omer states that she is not ordering any additional pain medications for the patient tonight. TROPONIN I Collected: 09/09/2017 Status: F Source: [facility] 5:50 PM HEALTH SYSTEM REPOSITORY TYPE CODE TESTS RESULT OUT OF REFERENCE UNITS RANGE LAB TROP(LOINC) 0.015-0.045 ng/ml Troponin I 0.020 Performed By: #### TROP #### [place] [address] PROGRESS Observed: 09/09/2017 Status: COMPLETED Source: [place] 5:40 PM [facility] [place] REPOSITORY HNO ID: [id number] Author: Dolores Bourgeois (Rn), RN Service: Nursing Author Type: Registered Nurse Type: Progress Notes Filed: 09/09/2017 5:40 PM Note Text: Patient has $540 riley on him right now. I counted the money to verify the amount but patient refused to have it locked up in security HISTORY PHYSICAL Observed: 09/09/2017 Status: COMPLETED Source: [place] 2:47 PM CLINIC OTHER [place] REPOSITORY HNO ID: [id number] Author: Maranda Omer Service: Hospital Medicine Author Type: Physician Type: HANDP Filed: 09/09/2017 2:57 PM Note Text: DEPARTMENT OF HOSPITAL MEDICINE HISTORY AND PHYSICAL EXAM SERVICE DATE: 09/09/2017 SERVICE TIME: 2:47 PM Primary Care Physician: Bijan Perez MD NIGHT AND WEEKEND COVERAGE: From 7am - 7pm, please call [phone] After 7pm, please call cross cover pager #[phone] Subjective CHIEF COMPLAINT: Chest pain HPI: This is a 67 year old male who presents with chest pain. He was sitting at the kitchen table getting ready for lunch and developed midsternal chest pain. Non radiating. Did have SOB with it. Pressure like. Still present. Feels different than his FL as last time he had pain radiating down his left arm. Does complain of stoma pain, but this is chronic. Chemical stress test negative last month. He has had a recent admit at [facility] for stomal herniation which is chronic. There is a note that says he should not be admitted for these symptoms unless something changes. 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 [...] [Amiloride-Hyd* Swelling - Moxifloxacin Swelling - Other Lake-3s Unknown brelinta - Ramipril Swelling Other reaction(s): [...] 09, 2017 TIME: 2:47 PM PAGER/CONTACT #: [phone] ED PROV NOTE Observed: 09/09/2017 Status: COMPLETED Source: [place] 2:21 PM CLINIC OTHER CAMPUS REPOSITORY O ID: [id number] Author: Rich Rogers MD Service: Emergency Medicine [...] coronary syndrome given his past history of FL, CABG, CAD. He has had imaging in [...] 2 VIEWS Observed: 09/09/2017 Status: F Source: [place] 2:02 PM HEALTH SYSTEM REPOSITORY Performed at [facility] APPROVED BY: Chele Valdes [...] abnormality. HEMOGRAM/DIFF Collected: 09/09/2017 Status: F Source: [facility] 1:44 PM HEALTH SYSTEM REPOSITORY TYPE CODE [...] 1.58 LAB MONON(LOIN 0.30-0.82 thou/cmm C) Abs. Wirt 0.60 LAB EOSN(LOINC 0.04-0.54 thou/cmm ) Abs. Eosin 0.12 LAB BASON(LOIN 0.01-0.08 thou/cmm C) Abs. Baso 0.02 Performed By: #### CBCD1 #### [facility] [address] [place] [address] [facility] TROPONIN I Collected: 09/09/2017 Status: F Source: [address] SYSTEM REPOSITORY TYPE CODE TESTS RESULT OUT OF REFERENCE UNITS RANGE LAB ERTRP(LOINC 0.015-0.045 ng/ml ) [facility] Troponin I < 0.015 Performed By: #### ERTRP #### [place] [address] BASIC PANEL Collected: 09/09/2017 Status: F Source: [address] SYSTEM REPOSITORY TYPE CODE TESTS RESULT [...] Gap 7 Performed By: #### P8 #### [place] [address] N-TERMINAL PRO-BNP Collected: 09/09/2017 Status: F Source: [address] SYSTEM REPOSITORY TYPE CODE TESTS RESULT OUT OF RANGE REFERENCE UNITS LAB PBNP(LOINC) pg/ml 1148 N-terminal Pro-BNP Result Comment: Acute CHF Rule-in <50 yrs old >= 450 pg/ml >50 yrs old >= 900 pg/ml Abnormal Pro-BNP All patients >=300 pg/ml Performed By: #### PBNP #### [place] [address] MDRD GFR Collected: 09/09/2017 Status: F Source: [address] SYSTEM REPOSITORY TYPE CODE TESTS RESULT OUT OF RANGE REFERENCE UNITS LAB GFRFN(LOINC >60mL/min/1.73m ) 2 eGFR >60 Result Comment: If the patient is , multiply the result by 1.210. Performed By: #### GFR #### [address] [place], [place] [address] ED TRIAGE NOTE Observed: 09/09/2017 Status: COMPLETED Source: [place] 12:56 PM [facility] CAMP[facility] REPOSITORY HNO ID: [id number] Author: Lenin Razo) Service: Emergency Medicine Author Type: Physician Title Insurance Examiner Type: ED Triage Notes Filed: 09/09/2017 12:59 [...] Moya PROGRESS Observed: 09/03/2017 Status: COMPLETED Source: [place] 3:38 PM [facility] REPOSITORY HNO ID: [id number] Author: Beulah Hogan Pharmd Service: (none) Author [...] Time spent on patient: 0-10 minutes Beulah Leuschen, PharmD September 03, 2017 3:40 PM RUTH Observed: 09/03/2017 Status: COMPLETED Source: [place] 12:00 AM [facility] REPOSITORY Patient Outreach (PHRXRF) MAXX KNOTT ([id number]) 1950 M Date Time Provider Department 09/03/17 BEULAH HOGAN PHARMD PHRXR During your visit today, we recorded the [...] Assessed Reason for Visit: Transition Of Care [8884] Cmt: [facility] pharmacy follow up call #2 No Show [5106] Reason For Visit History Recorded Prescriptions as [...] neede* FLUTICASONE 50 MCG/ACTUATION * Use 1 Vulcan in the nose once * NITROGLYCERIN 0.4 [...] Encounter Status:Closed by DEENA (PHARMACIST)BEULAH on 09/03/17 TROPONIN Collected: 09/01/2017 Status: F Source: [place] 1:53 PM [facility] REPOSITORY TYPE CODE TESTS RESULT OUT OF REFERENCE UNITS RANGE LAB [id number](USHA ng/mL NC) Troponin 0.03 Result Comment: <0.04 Normal 0.04 - 0.50 Possible cardiac damage >0.50 Consistent with cardiac damage RAD/AAS FL/UP-DE W/PA Observed: 09/01/2017 Status: F Source: [facility] [facility]R 12:35 PM [facility] REPOSITORY Patient Name: MAXX KNOTT STUDY: RAD/AAS FL/UP-DE W/PA CXR; 09/01/2017 12:27 pm INDICATION: abdominal pain. Swelling stoma area. COMPARISON: 06/22/2017 ACCESSION NUMBER(S): [id number] ORDERING CLINICIAN: HALIMA ROB FINDINGS: Stoma is seen projecting over the right mid abdomen with the stool projecting over the area of stoma. The bowel gas pattern is nonobstructive. No distended bowel loops are seen. No pathologic calcifications are noted. The heart is not enlarged. No infiltrate or pleural effusion is seen. Sternotomy wires surgical clips and pacemaker is identified. IMPRESSION: Nonobstructive bowel gas pattern. No active cardiopulmonary disease. Dictated by: Electronically Signed by: Sushila Moy Electronically Signed on: 09/01/2017 12:35 PM BMP Collected: 09/01/2017 Status: F Source: [place] 11:12 AM [facility] REPOSITORY TYPE CODE TESTS RESULT OUT OF REFERENCE UNITS RANGE LAB 0899947(LO 136-144 mmol/L INC) Sodium 138 LAB 5423698(LO 3.4-5.1 mmol/L INC) Potassium 4.2 LAB 0239619(LO 98-107 mmol/L INC) Chloride 103 LAB 1447111(LO 22-32 mmol/L INC) CO2 26 LAB 3022711(LO 70-100 mg/dL INC) Glucose High 127 LAB 0195671(LO 8-26 mg/dL INC) BUN 13 LAB 1235971(LO 0.60-1.30 mg/dL INC) Creatinine 0.86 LAB 3756582(LO 8.1-10.1 mg/dL INC) Calcium 9.5 LAB 300047(USHA 5.0-19.0 mmol/L NC) Anion Gap 9.0 LAB 712465(USHA mOsm/kg NC) Osmolality-Calc 277 LAB 561910(USHA NC) Bun/CretRatio 15.1 TROPONIN RFX Collected: 09/01/2017 Status: F Source: [place] 11:12 AM [facility] REPOSITORY Order Comment: Trop Rfx Replaces Trop order TYPE CODE TESTS RESULT OUT OF REFERENCE UNITS RANGE LAB 8609536(USHA ng/mL NC) Troponin 0.03 Result Comment: <0.04 Normal 0.04 - 0.50 Possible cardiac damage >0.50 Consistent with cardiac damage LACTIC ACID Collected: 09/01/2017 Status: F Source: [place] 11:12 AM [facility] REPOSITORY TYPE CODE TESTS RESULT OUT OF REFERENCE UNITS RANGE LAB 0530551(USHA 0.5-2.2 mmol/L NC) Lactic Acid 2.2 LACTIC ACID COMMENT Collected: 09/01/2017 Status: F Source: [place] 11:12 AM [facility] REPOSITORY Order Comment: Lactic Acid > 2.0 If sepsis is suspected, repeat Lactic acid assay within 4 hours. TYPE CODE TESTS RESULT OUT OF REFERENCE UNITS RANGE LAB 1252415(USHA NC) Lactic Acid Lactic Comment Acid > 2.0 If sepsis is suspected, repeat Lactic acid assay within 4 hours. ZCBCD Collected: 09/01/2017 Status: F Source: [place] 11:11 AM [facility] REPOSITORY TYPE CODE TESTS RESULT OUT OF REFERENCE UNITS RANGE LAB 0131288(LO 4.3-10.5 x10E9/L INC) WBC 9.6 LAB 3263944(LO 4.18-5.87 x10E12/L INC) RBC 4.36 LAB 7407382(LO 13.4-17.5 g/dL INC) Hemoglobin 13.7 LAB 6251530(LO 37.5-49.2 % INC) Hematocrit 40.5 LAB MCV(LOINC) 80.0-100.0 fL MCV 92.9 LAB MCH(LOINC) 26.5-33.0 pg MCH 31.5 LAB MCHC(LOINC 32.6-36.0 g/dL ) MCHC 33.9 LAB 8318031(LO 144-400 x10E9/L INC) Platelet High 402 LAB 999907(USHA 7.2-10.3 fL NC) Mean Plt Vol 8.3 LAB 469516(USHA 11.4-16.0 % NC) RDW 14.7 AUTO DIFF Collected: 09/01/2017 Status: F Source: [place] 11:11 [facility] REPOSITORY TYPE CODE TESTS RESULT OUT OF REFERENCE UNITS RANGE LAB NEUT(LOINC 41.0-73.8 % ) High Neutrophil% 80.4 LAB LYMP%(LOIN 17.0-44.0 % C) Low Lymph % 13.9 LAB MONO%(LOIN 5.3-12.5 % C) Low Wirt % 4.2 LAB EO%(LOINC) 0.7-6.5 % Eo% 1.3 LAB BASO%(LOIN 0.0-2.4 % C) Baso% 0.2 LAB ANEUT(LOIN 1.8-7.5 x10E9/L C) High Neutrophil 7.7 LAB ALYMP(LOIN 1.1-3.5 x10E9/L C) Lymphocyte 1.3 LAB AMONO(LOIN 0.3-1.0 x10E9/L C) Monocyte 0.4 LAB AEO(LOINC) 0.0-0.5 x10E9/L Eosinophil 0.1 LAB ABASO(LOIN 0.0-0.2 x10E9/L C) Basophil 0.0 TROP POCT Collected: 09/01/2017 Status: F Source: [place] 11:01 [facility] REPOSITORY Order Comment: Troponin POCT added per lab protocol TYPE CODE TESTS RESULT OUT OF REFERENCE UNITS RANGE LAB 2515189(USHA ng/mL NC) Troponin POCT 0.03 Result Comment: <0.4 : Negative 0.04 - 0.50 : Possible Cardiac Damage >0.5 : Consistent With Cardiac Damage ALLIED HEALTH Observed: 08/28/2017 Status: COMPLETED Source: [place] 5:16 PM [facility] REPOSITORY HNO ID: [id number] Author: Meron (Rn) MITCHELL Montague Service: Wound/Ostomy Author Type: Registered [...] up prior to discharge, Dory visiting nurse [phone]. Advised to call tomorrow morning, if any [...] per day: not assessed Current pouching system: Dara Premier with 4 cutting surface, Kareem 4 seal, tape Current wearing time: 2 weeks Recommendations: Skin Care: [place]'s soak, antifungal powder, stomahesive powder Pouching System: Kareem 4 seal, Dara Hollihesive washer cut in half with radial slits from 3-9 o'clock and from 9-3 o'clock, paste caulking, [place] Premier 4 cutting surface Wear Time: 3-7 days Midline Abdominal Incision: Healed scar Comment: Time Increment: 1 hour 15 minutes Meron Montague RN, CWOCN [facility] nursing pager [phone] (M-F 7a-4p, Sat, Sun, Holiday 7a-3p) ED NOTE Observed: 08/28/2017 Status: COMPLETED Source: [place] 5:15 PM [facility] [place] REPOSITORY HNO ID: [id number] Author: Sharifa (Rn) MITCHELL Santiago Service: Nursing Author Type: Registered Nurse Type: ED Notes Filed: 08/28/2017 5:15 PM Note Text: Patient verbalized understanding of DC instructions. CONSULT PROG Observed: 08/28/2017 Status: COMPLETED Source: [place] 4:58 PM [facility] REPOSITORY HNO ID: [id number] Author: Fani Dover (Fel) Service: Colorectal Author [...] service, h/o transverse loop colostomy for diverticulitis, FL s/p PCI on asa, plavix with chronic [...] artery disease) 2005 CAD s/p CABG x3 (DEYK-ZUX-gxbjud, RVN-MWB-smrmda, OXM-GX9-oxgvngqk) (2005 at [place]) - Current every day smoker PT SMOKES A PIPE - Diverticulitis Perforated Diverticulitis - Diverticulitis of sigmoid colon 05/15/2017 Added automatically from request for surgery [id number] - Pacemaker 02/16/2017 s/p PPM () 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 RESP: denies dyspnea, cough, asthma, bronchitis, emphysema, and URI < 2 weeks ago. CARD: patient denies any dyspnea, FL, angina pectoris, valvular disease, or syncope and history of past FL - greater than 6 months ago GI: [...] (FLONASE) 50 mcg/actuation nasal spray Use 1 Vulcan in the nose once daily as needed. [...] [Amiloride-Hyd* Swelling - Moxifloxacin Swelling - Other Lake-3s Unknown brelinta - Ramipril Swelling Other reaction(s): [...] - - - 87.1 kg (192 lb) 05/01/18 1413 159/67 - - (!) 96 18 [...] distended. Stoma with large prolapse, easily reducible. [place]. Bag with significant amount of stool and [...] ED NOTE Observed: 08/28/2017 Status: COMPLETED Source: [place] 4:15 PM [facility] REPOSITORY HNO ID: [id number] Author: Sharifa (Rn) MITCHELL Santiago Service: Nursing Author Type: Registered Nurse Type: ED Notes Filed: 08/28/2017 4:15 PM Note Text: Stoma nurse at bedside ED PROV NOTE Observed: 08/28/2017 Status: COMPLETED Source: [place] 3:36 PM [facility] REPOSITORY HNO ID: [id number] Author: Woo Valdovinos MD Service: Emergency Medicine [...] PROV NOTE Observed: 08/28/2017 Status: COMPLETED Source: [place] 2:27 PM [facility] REPOSITORY HNO ID: [id number] Author: Bart Olvera MD Service: Emergency Medicine [...] (abdominal aortic aneurysm) without rupture ([facility]) 05/13/[address] a/p - CAD (coronary artery disease) 2005 CAD s/p CABG x3 (KJHE-WFR-dcisgc, POJ-HBV-rwwvfl, WIL-QH8-eptsxkvk) (2006 at [place]) - Current every day smoker PT SMOKES A PIPE - Diverticulitis Perforated Diverticulitis - Diverticulitis of sigmoid colon 05/15/2017 Added automatically from request for surgery [id number] - Pacemaker 02/16/2017 s/p PPM () 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 Diagnosis: Prolapse of colostomy-reduced Signature: Bart Olvera MD Date: 08/30/2017 Time: 7:15 AM Bart Olvera MD 08/30/17 0717 ED NOTE Observed: 08/28/2017 Status: COMPLETED Source: [place] 2:00 PM [facility] REPOSITORY HNO ID: [id number] Author: Sharifa KingRn) MITCHELL Santiago Service: Nursing Author Type: Registered [...] TRIAGE NOTE Observed: 08/28/2017 Status: COMPLETED Source: [place] 1:17 PM [facility] REPOSITORY HNO ID: [id number] Author: Nona Caballero (Pa) Service: Emergency Medicine Author Type: Physician Title Insurance Examiner Type: ED Triage Notes Filed: 08/28/2017 1:18 [...] ED NOTE Observed: 08/28/2017 Status: COMPLETED Source: [place] 1:13 PM [facility] REPOSITORY HNO ID: [id number] Author: Tim Morrow RN Service: Emergency Medicine Author Type: Registered Nurse Type: ED Notes Filed: 08/28/2017 1:13 PM Note Text: States his stoma has been burning for a few hours, states the bag feels like it is falling off as well. PROGRESS Observed: 08/28/2017 Status: COMPLETED Source: [place] 8:42 AM [facility] REPOSITORY HNO ID: [id number] Author: Beulah Hogan Pharmd Service: (none) Author [...] Hogan PharmD August 28, 2017 8:42 AM CNPTOUTREACH Observed: 08/28/2017 Status: COMPLETED Source: [place] 12:00 AM [facility] REPOSITORY Patient Outreach (PHRXRF) MAXX KNOTT ([id number]) 1950 M Date Time Provider Department 08/28/17 BEULAH HOGAN PHARMD During your visit today, [...] Unknown Date Reviewed: 08/17/2017 Reviewed by: Yanely KingRn) MITCHELL [place] - Fully Assessed Reason for Visit: Transition Of Care [6314] Cmt: [facility] pharmacy follow up call #1 No Show [4748] Reason For Visit History Recorded Prescriptions as [...] neede* FLUTICASONE 50 MCG/ACTUATION * Use 1 Vulcan in the nose once * NITROGLYCERIN 0.4 [...] 08/28/17 PROGRESS Observed: 08/20/2017 Status: COMPLETED Source: [place] 11:24 AM [facility] [place] REPOSITORY [facility] ID: [id number] Author: Beulah Hogan Pharmd Service: (none) Author [...] name and . Summary: -Pt discharged from [facility] on 08/17/17. -Follow up appointment on not yet scheduled, agreeable for G-10 schedulers to contact him to assist. -Medication review done Yes. -Admitted for chronic stoma prolapse Patient was contacted by telephone, identified for pharmacist care from discharge call list, and gave consent to manage medications related to transitional care management pursuant to the consult agreement with the [facility]. 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 - Peritonitis ([facility]) Social History Substance Use Topics [...] [Amiloride-Hyd* Swelling - Moxifloxacin Swelling - Other Lake-3s Unknown brelinta - Ramipril Swelling Other reaction(s): Facial swelling - Simvastatin Myalgia Other reaction(s): Facial swelling - Voltaren [Diclofena* Unknown Preferred pharmacy: [facility] [address] [place] [phone] - [phone] - [phone] [facility] [place] [address] [facility] [phone] Medication Reconciliation: Legend: Stopped, New, Changed, Added [...] (FLONASE) 50 mcg/actuation nasal spray Use 1 Vulcan in the nose once daily as needed. [...] Hogan, PharmD August 20, 2017 11:25 AM RUTH Observed: 08/20/2017 Status: COMPLETED Source: [place] 12:00 AM [facility] REPOSITORY Patient Outreach (PHRXRF) MAXX KNOTT ([id number]) 1950 M Date Time Provider Department 08/20/17 DEENA PHARMD, BEULAH PHRXRF During your visit today, we recorded the following information about you: Beulah Hogan, Katey 08/22/2017 11:15 AM Signed TRANSITION CARE MANAGEMENT (TCM) INITIAL CONTACT Provider Action/I: Schedulers -- Please assist patient with scheduling a 7-14 day TCM visit with PCP following their discharge on 08/17/17. TCM Medication Reconciliation completed for patient. See medication list table below for details. No further action required at this time Initial contact with patient post discharge, spoke to patient. Patient identified by name and . Summary: -Pt discharged from [facility] on 08/17/17. -Follow up appointment on not yet scheduled, agreeable for G-10 schedulers to contact him to assist. -Medication review done Yes. -Admitted for chronic stoma prolapse Patient was contacted by telephone, identified for pharmacist care from discharge call list, and gave consent to manage medications related to transitional care management pursuant to the consult agreement with the [facility]. Patient Concerns: None at this time History [...] mg daily; CAD, status post CABG x3 (EGMI-RMW-ykmsik, HWR-WOZ-qgsbyp, ODK-MH5-lhleaalj); last PCI 01/2017?([facility] ): GREY to proximal LAD on DAPT; [...] (abdominal aortic aneurysm) without rupture ([facility]) 05/13/[address] a/p - CAD (coronary artery disease) 2005 CAD s/p CABG x3 (TZID-VFI-oknqlf, XEA-VWV-gmvdhb, WHN-ZV3-ymjutvym) (2006 at [place]) - Current every day smoker PT SMOKES A PIPE - Diverticulitis Perforated Diverticulitis - Diverticulitis of sigmoid colon 05/15/2017 Added automatically from request for surgery [id number] - Pacemaker 02/16/2017 s/p PPM () 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 [address] [facility] [address] Medication Reconciliation: Legend: Stopped, New, Changed, Added [...] (FLONASE) 50 mcg/actuation nasal spray Use 1 Vulcan in the nose once daily as needed. [...] spent on patient: 30-45 minutes Beulah Hogan, Katey August 20, 2017 11:25 AM Allergies As [...] neede* FLUTICASONE 50 MCG/ACTUATION * Use 1 Vulcan in the nose once * NITROGLYCERIN 0.4 [...] Hogan PharmD 08/20/2017 11:48 AM >> DEENA (PHARMACIST)BEULAH SunAug 20, 2017 11:48 AM Problem List [...] More... CHF (congestive heart failure) ([facility]) [I50.9] INVALID FOR* Diverticulitis of [...] daily. Disc: Other Encounter Status:Closed by DEENA (PHARMACIST), BEULAH on 08/22/17 PLAN OF CARE Observed: 08/17/2017 Status: COMPLETED Source: [place] 3:47 PM [facility] RE[facility]IT[facility] ID: [id number] Author: Nadeen Cevallos (Vmware Consultant) Service: (none) Author Type: Media Account Executive Type: Plan of Care Filed: 08/17/2017 3:47 PM Note Text: PHARMACY BEDSIDE DELIVERY SERVICE Patient Name: Maxx Knott The marked outpatient medications were Filled at: [facility] and delivered to the patient's [...] Commonly known as: PERCOCET 10 Nadeen Cevallos (Linqia) PAGER: [phone] August 17, 2017 3:47 PM CNDS Observed: 08/17/2017 Status: COMPLETED Source: [place] 3:45 PM [facility] REPOSITORY HNO ID: [id number] Author: Ro Yoo Service: Colorectal Author Type: [...] mg daily; CAD, status post CABG x3 (GHDN-ZGG-llyblm, OSC-FCB-gqvaoc, YKW-WA3-aptzdnar); last PCI 01/2017 ([facility] ): GREY to proximal LAD on DAPT; [...] heart failure (HCC) CHF (congestive heart failure) ([facility]) Abdominal aortic aneurysm without rupture (HCC) Arthritis [...] 9 tablet Refills: 0 Associated Diagnoses:Colostomy prolapse ([facility]); Generalized abdominal pain CONTINUE these medications which [...] inhaler Inhale as instructed. fluticasone (FLONASE) 1 Vulcan Use 1 Vulcan in the nose once daily as needed. [...] Stopping: No future appointments. SIGNATURE: Chanel Gonzales APRN.MUNICIPAL MAINTENANCE WORKER PAGER: [phone] DATE: August 17, 2017 TIME: 3:45 PM PLAN OF CARE Observed: 08/17/2017 Status: COMPLETED Source: [place] 2:40 PM [facility] REPOSIT[facility] HNO ID: [id number] Author: Nadeen Cevallos (Linqia) Service: (none) Author Type: Media Account Executive Type: Plan of Care Filed: 08/17/2017 2:41 PM Note Text: Pharmacy Discharge Medication Service: This patient has elected to receive their discharge prescriptions through the [facility] Bedside Prescription Delivery program. The prescriptions are currently being processed. A follow-up note will be entered once the prescriptions have been filled and delivered to the patient. Please contact me with any questions or updates to the patient's discharge medications. Nadeen Cevallos (Linqia) DCT Contact Info: [phone] PLAN OF CARE Observed: 08/17/2017 Status: COMPLETED Source: [place] 2:37 PM [facility] REPOSIT[facility] HNO ID: [id number] Author: Nadeen Cevallos (Linqia) Service: (none) Author Type: Media Account Executive Type: Plan of Care Filed: 08/17/2017 2:40 PM Note Text: VITICULTURIST BEDSIDE DELIVERY SURVEY 1. Patient to use [facility] Bedside Delivery - YES 2. If fax, patient would like us to fax prescriptions to Pharmacy of choice a. Pharmacy: b. Location: c. Phone: 3. Insurance card on file - YES 4. Credit card for payment - YES CASE MANAGEM Observed: 08/17/2017 Status: COMPLETED Source: [place] 12:32 PM [facility] REPOSITORY HNO ID: [id number] Author: Dian KingBeth Dumont Service: Care Management Author Type: Shipping Order Clerk Type: Care Mgt Progress Note Filed: 08/17/2017 12:35 PM Note Text: CARE MANAGEMENT DISCHARGE NOTE SERVICE DATE: 08/17/2017 SERVICE TIME: 12:32 PM LOS: 1 day Admission Date: 08/16/2017 DISCHARGE ARRANGEMENT (list agency and phone number) Home care Provider: Dory Taylor Visiting Nurse Service / VNS - HomeCare, Hospice and Palliative Care (Central Intake) CAREGIVER ASSESSMENT: Caregiver is ready, willing and able to meet the patient's needs as recommended by the inter-professional team? Yes Patient's transition needs and plan for meeting these needs: Patient will return home with [facility]. Does the patient have an acute stroke diagnosis, or has the patient had a stroke during this admission? No HANDOFF COMMUNICATION: Primary Care Physician: Viral Brown MD TRANSPORTATION ARRANGEMENTS: Elissa Cazares ADDITIONAL CONTACT RESOURCES: Amanda is medically cleared for discharge. Plan for Dory VNS for ostomy care. SOC 08/19. Discharge instructions sent to [facility] via [employer]. Contact information for [facility] left with patient at bedside. Plan for Elissa Cazares to transport patient home at 5:45PM. Elissa Cazares agreed to call nurse's station 15 min before arrival so patient can be brought downstairs. Patient also provided with contact information for Elissa Limo. No further needs. Patient agreed to plan. SIGNATURE: SOFIE Resendez PATIENT NAME: Maxx Knott DATE: August 17, 2017 TIME: 12:32 PM PAGER/CONTACT #: [phone] [facility] Observed: 08/17/2017 Status: COMPLETED Source: [place] 11:39 AM [facility] REPOSITORY HNO ID: [id number] Author: Vianney Key RN Service: Wound/Ostomy Author Type: Registered Nurse Type: Allied Health Filed: 08/17/2017 11:42 AM Note Text: ET/WOCN Nursing Consult Topic: ET/WOCN Consultation Note ET Outcome: Patient with a chronic stomal prolapse with recent fall and transfer to [facility] for observation. At the time of visit, patient stated that he is getting discharged soon and no need to change pouch. The stoma is red, moist, and functioning (mushy brown effluent) as viewed through the pouch. The seal is intact. The patient refuses further assessment at this time as [facility] does not care his pouching system. ET's Next Scheduled Visit: 08/21 if patient still in hospital. Comment: Coloplast Post Op window pouch x 2 provided Time Increment: 15 minutes Vianney Key MA, BSN, RN-BC, CWOCN [facility] Nursing- Please place consult via [facility]. Thank you. 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 Home Health Care Agency: [facility] [facility] [employer]; ; Active. Equipment Prior to Admission: Bi-level Positive Airway Pressure/Continuous Positive Airway Pressure Wound Care supplies Has the Patient Been in a Senior Living Facility in the Past 30 days? No SOCIAL: Living Arrangement: Home Lives With: Brother Financial Resources: Disabled Primary Contact: Extended Emergency Contact Information Primary Emergency Contact: Mary Knott Address: [address] [place] [address] OF [facility] Mobile Relation: Brother Supportive: Yes Other [...] 0 I feel financially burdened by my hcw-zo-zzugiq expenses for my prescription medication: Disagree mostly [...] List: No Provider List: Home Care Preference: [facility]OTENTIAL [facility]ANSITION PL[facility] Home Care Patient is a 67 year old male admitted for back pain. SW met with patient at bedside to discuss possible discharge needs. Patient was alert and oriented and engaged with questioning. Patient was recently discharge from [facility] on 08/13/17 with [facility]. Referral sent to [facility] for resumption, able to accept. Patient also given [facility] letter as status changed to observation. Per AM team sign out, plan for discharge today. Patient requesting ride home as his brother is unable to pick him up because their car is broken. RACQUEL arranged Elissa Debora for 5:45PM, approved by management. Contact information for Elissawali Cazares left with patient. Elissawali Cazares agreed to contact nurse's station 15 minutes before arriving so patient can be brought downstairs. No further needs. SW following. SIGNATURE: SOFIE Resendez PATIENT NAME: Maxx Knott DATE: August 17, 2017 TIME: 11:06 AM PAGER/CONTACT #: [phone] CASE MANAGEM Observed: 08/17/2017 Status: COMPLETED Source: [place] 9:11 AM [facility] REPOSITORY [facility] ID: [id number] Author: Mulugeta Brock Service: Care Management Author [...] 17, 2017 TIME: 9:12 AM PAGER/CONTACT #: [phone] Disclaimer: The information in this determination is [...] the process utilized to ensure compliance with [facility] policy regarding Inpatient Admission and Observation Services. [...] NURSING PROG Observed: 08/17/2017 Status: COMPLETED Source: [place] 8:40 AM [facility] REPOSITORY O ID: [id number] Author: Carmine Toth) MITCHELL Thrasher Service: (none) Author Type: Registered [...] TROPONIN T Collected: 08/17/2017 Status: F Source: [place] 7:19 AM [facility] REPOSITORY TYPE CODE TESTS RESULT OUT OF REFERENCE UNITS RANGE LAB TROPT 0.000-0.029 ng/mL Troponin T <0.010 Performed By: #### BRAYAN #### [facility] [address] [place], [place] [address] CBC Collected: 08/17/2017 Status: F Source: [place] 5:26 AM [facility] REPOSITORY TYPE CODE TESTS RESULT [...] By: #### CBC, BMP, MG1, PHOS #### [facility] [address] [place], [place] [address] BASIC METABOLIC PANL Collected: 08/17/2017 Status: F Source: [place] 5:26 AM [facility] REPOSITORY TYPE CODE TESTS RESULT [...] By: #### CBC, BMP, MG1, PHOS #### [facility] [address] [place] [id number] MAGNESIUM Collected: 08/17/2017 Status: F Source: [place] 5:26 AM [facility] REPOSITORY TYPE CODE TESTS RESULT OUT OF REFERENCE UNITS RANGE LAB MG 1.7-2.3 mg/dL Magnesium 2.2 Performed By: #### CBC, BMP, MG1, PHOS #### [facility] [address] [place], [place] [address] PHOSPHORUS Collected: 08/17/2017 Status: F Source: [place] 5:26 AM [facility] REPOSITORY TYPE CODE TESTS RESULT OUT OF REFERENCE UNITS RANGE LAB PHOS 2.7-4.8 mg/dL Phosphorus 3.3 Performed By: #### CBC, BMP, MG1, PHOS #### [facility] [address] [place], [place] [address] CBC AND DIFFERENTIAL Collected: 08/16/2017 Status: F Source: [place] 9:43 PM [facility] REPOSITORY TYPE CODE TESTS RESULT [...] k/uL Abs Lymph 2.21 LAB AMONO % Wirt% 12.2 LAB AAMONO <0.87 k/uL Abs Wirt High 1.09 LAB AEOS % Eosin% 3.1 LAB AAEOS <0.46 k/uL Abs Eosin 0.28 LAB ABASO % Baso% 0.6 LAB AABASO <0.11 k/uL Abs Baso 0.05 LAB AUNRBC 0 /100 WBC NRBCs 0.0 LAB ABNRBC <0.01 k/uL Absolute nRBC <0.01 LAB DTYP DTYPE Auto Diff Performed By: #### CBCDIF, PT, PTT, CMP, MG1, PHOS #### [facility] [address] [place], [place] [address] PROTIME Collected: 08/16/2017 Status: F Source: [place] 9:43 PM [facility] REPOSITORY TYPE CODE TESTS RESULT [...] Chest 2012, 141:7S-47S Teofilo RA, et al. [facility] 2017, 70: 252-289 Performed By: #### CBCDIF, PT, PTT, CMP, MG1, PHOS #### [facility] [employer] [address] [place], [place] [address] APTT Collected: 08/16/2017 Status: F Source: [place] 9:43 PM [facility] REPOSITORY TYPE CODE TESTS RESULT [...] laboratory APTT reagent in use throughout the [facility]. Performed By: #### CBCDIF, PT, PTT, CMP, MG1, PHOS #### [facility] [address] [place], [place] [address] COMP METABOLIC PANEL Collected: 08/16/2017 Status: F Source: [place] 9:43 PM [facility] REPOSITORY TYPE CODE TESTS RESULT [...] CBCDIF, PT, PTT, CMP, MG1, PHOS #### [facility] [address] [place] [address] MAGNESIUM Collected: 08/16/2017 Status: F Source: [place] 9:43 PM [facility] REPOSITORY TYPE CODE TESTS RESULT OUT OF REFERENCE UNITS RANGE LAB MG 1.7-2.3 mg/dL Magnesium 2.1 Performed By: #### CBCDIF, PT, PTT, CMP, MG1, PHOS #### [facility] [employer] [address] [place] [address] PHOSPHORUS Collected: 08/16/2017 Status: F Source: [place] 9:43 PM [facility] REPOSITORY TYPE CODE TESTS RESULT OUT OF REFERENCE UNITS RANGE LAB PHOS 2.7-4.8 mg/dL Phosphorus 2.8 Performed By: #### CBCDIF, PT, PTT, CMP, MG1, PHOS #### [facility] [employer] [address] [place] [address] TYPE AND SCREEN Collected: 08/16/2017 Status: F Source: [place] 9:43 PM [facility] REPOSITORY TYPE CODE TESTS RESULT OUT OF REFERENCE UNITS RANGE LAB %ABR O ABO/RH(D) POSITIVE LAB % Antibody NEG Screen Performed By: #### TSCR #### [place] [address] [facility] Observed: 08/16/2017 Status: COMPLETED Source: [place] 6:14 PM [facility] REPOSITORY HNO ID: [id number] Author: Mata (Rn) MITCHELL Schultz Service: Wound/Ostomy Author Type: Registered Nurse Type: Allied Health Filed: 08/16/2017 6:21 PM Note Text: ET/WOCN Nursing Consult Topic: ET/WOCN Consultation Note ET Outcome: Patient with a chronic stomal prolapse with recent fall and transfer to [facility] for observation. At time of visit the patient had no complaints of pain. The stoma is red, moist, and functioning (mushy brown effluent) as viewed through the pouch. The seal is intact. No evidence of bloody discharge and the stoma is with a large prolapsed. The patient refuses pouch change or further assessment at this time as [facility] does not care his pouching system. Discussed and provided other options, still the patient refused change or assessment at this time. He states that he wants to wait and see what the plan is tomorrow and go from there. ET's Next Scheduled Visit: 08/17/17 Time Increment: 15 minutes MAIA Salinas, RN, CWOCN NURSING PROG Observed: 08/16/2017 Status: COMPLETED Source: [place] 5:23 PM [facility] REPOSITORY HNO ID: [id number] Author: Vinicius KingRn) MITCHELL Garcia Service: (none) Author Type: Registered Nurse Type: Nursing Progress Note Filed: 08/16/2017 5:26 PM Note Text: Problem(s) / Intervention(s) PATIENT NAME: Maxx Knott The patient Pt c/o numbness and weakness in calves since fall. The following intervention(s) were initiated :Rn paged bridge contractor and Dr. Beebe to make aware. Rn question for US LE to r/o DVT since admitted from [facility]. Awaiting orders. Continue to monitor. This note was completed by: Vinicius Garcia RN NURSING PROG Observed: 08/16/2017 Status: COMPLETED Source: [place] 5:19 PM [facility] REPOSITORY HNO ID: [id number] Author: Vinicius KingRn) MITCHELL Garcia Service: (none) Author Type: Registered Nurse Type: Nursing Progress Note Filed: 08/16/2017 5:21 PM Note Text: Problem(s) / Intervention(s) PATIENT NAME: Maxx Knott The patient Pt with OSH iv pt states it took 6 times to get current iv. Also pt requesting more pain meds. The following intervention(s) were initiated :RN paged Dr. Beebe and bridge contractor to see if could write Nursing communication ok to keep current iv. Also to see if could get more pain meds for pt. Awaiting orders. Continue to monitor. This note was completed by: Vinicius Garcia RN HISTORY PHYSICAL Observed: 08/16/2017 Status: COMPLETED Source: [place] 4:10 PM [facility] REPOSITORY HNO ID: [id number] Author: Ro Yoo Service: Colorectal Author Type: Physician Type: HANDP [...] mg daily; CAD, status post CABG x3 (ACGC-BNG-ydiiip, YVF-BHI-zcfytj, BWW-ZD8-dhgaxiwo); last PCI 01/2017?([facility] ): GREY to proximal LAD on DAPT; [...] (abdominal aortic aneurysm) without rupture ([facility]) 05/13/[address] a/p - CAD (coronary artery disease) 2005 CAD s/p CABG x3 (RDCJ-INC-hrqrmh, HJY-BQR-hxiuie, KUZ-KO4-hyylyxqt) (2006 at [place]) - Current every day smoker PT SMOKES A PIPE - Diverticulitis Perforated Diverticulitis - Diverticulitis of sigmoid colon 05/15/2017 Added automatically from request for surgery [id number] - Pacemaker 02/16/2017 s/p PPM () 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 [...] [Amiloride-Hyd* Swelling - Moxifloxacin Swelling - Other Lake-3s Unknown brelinta - Ramipril Swelling Other reaction(s): Facial swelling - Simvastatin Myalgia Other reaction(s): Facial swelling - Voltaren [Diclofena* Unknown COMPLETE REVIEW OF SYSTEMS: GENERAL: No weight loss, malaise or fevers., SEE HPI HEENT: Recent headache 2/ fall. NECK: Negative for pain and significant neck swelling RESPIRATORY: Negative for cough, wheezing or shortness of breath. CARDIOVASCULAR: Negative for chest pain, leg swelling. GI: Chronic abdominal discomfort, prolapsed stoma; negative for change in bowel habits, hematochezia, melena, nausea, vomiting : No history of dysuria MUSCULOSKELETAL: Lumbar back pain 06/01 fall SKIN: Negative for new lesions PSYCH: [...] reports reviewed. SIGNATURE: Chanel Gonzales CNP PAGER: [phone] DATE of SERVICE: August 16, 2017 TIME of SERVICE: 4:10PM XR CHEST 1V FRONTAL Observed: 08/16/2017 Status: F Source: [facility] 3:58 PM [facility] REPOSITORY * * *Final Report* * * [...] The cardiomediastinal silhouette is unchanged. Other: . Geriatric Physical Therapist: PSCB Transcribe Date/Time: Aug 16 2017 5:02P Dictated by : HERRERA DIAZ MD This examination was interpreted and the report reviewed and electronically signed by: HERRERA DIAZ MD on Aug 16 2017 5:03PM EST [id number] PT ED Observed: 08/16/2017 Status: COMPLETED Source: [place] 3:31 PM [facility] REPOSITORY HNO ID: [id number] Author: Cc Provider Service: (none) Author Type: Physician Type: Patient Education Filed: 08/16/2017 3:31 PM Note Text: [facility] Patient Education Report --------- Name: MAXX KNOTT Date: 08/16/2017 Time: 3:30 PM Patient Ordered Video: Inpatient Falls from [id number] via phone number [phone] at 3:30 PM PROGRESS Observed: 08/13/2017 Status: COMPLETED Source: [place] 11:08 AM [facility] REPOSITORY HNO ID: [id number] Author: Beulah Hogan Pharmd Service: (none) Author [...] will be made. SUMMARY: -Pt discharged from [facility] on 08/12/17. 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 - Peritonitis ([facility]) Social History Substance Use Topics [...] Myalgia - Hctz [Amiloride-Hyd* Swelling - Other Lake-3s Unknown brelinta - Ramipril Swelling - Simvastatin Myalgia - Voltaren [Diclofena* Unknown Preferred pharmacy: [facility] [address] [place] [address] - [address] - [phone] [facility] [place] [address] [facility] [address] Medication Reconciliation: Legend: Stopped, New, Changed, Added [...] (FLONASE) 50 mcg/actuation nasal spray Use 1 Vulcan in the nose once daily as needed. furosemide (LASIX) 20 mg tablet Take 40 mg by mouth once daily as needed. gabapentin (NEURONTIN) 300 mg capsule Take 2 capsules by mouth daily at bedtime for 90 days. On reconcile dispense records Discontinued: 08/12/2017 11:38 AM D/c ARMED SECURITY OFFICER loratadine 10 mg cap Take 1 capsule [...] spent on patient: 30-45 minutes Beulah Hogan, Katey August 14, 2017 9:57 AM Pharmacy Transitional Care Management Outreach ? First attempt to contact patient for TCM outreach was unsuccessful. We will contact patient again on the next business day. ?? Beulah Hogan PharmD August 13, 2017 11:14 AM Pharmacy Transitional Care Management CNPN Observed: 08/13/2017 Status: COMPLETED Source: [place] 12:00 AM [facility] REPOSITORY Telephone (INTMMN) MAXX KNOTT ([id number]) 1950 M Date Time Provider Department 08/13/17 BIJAN PEREZ) INTMMN During your visit today, we recorded the following information about you: Bianca Eusebio Psr 08/13/2017 9:44 AM Signed Name of caller: Farzana [phone] Relation to patient: [facility] [facility] Reason for call: Orders Patient's documented phone number: [phone] (home) Last visit in this department: 04/18/2017 Last visit with PCP: 04/18/2017 Farzana calling from [facility]. Pt was discharged with home care orders. She would like to know if staff will follow pt for home care and sign 485's. If so please call her with verbal. Can we send you a response via [email or web address]? No Routed message to May we leave a message? Yes Bianca Kaplan Psr Bijan Perez MD, MD 08/13/2017 10:11 AM Signed OK to follow homecare orders. Thanks. Bijan Perez MD 08/13/2017 10:11 AM Carolee Goldstein [facility] 08/14/2017 8:26 AM Signed Verbal left on Desiree VM Allergies As of Date: 08/13/2017 Noted [...] Reason for Visit: Orders [681] Cmt: Verbal- [facility] Prescriptions as of 08/13/2017 [...] instructed. FLUTICASONE 50 MCG/ACTUATION * Use 1 Vulcan in the nose once * NITROGLYCERIN 0.4 [...] Status:Closed by BIJAN PEREZ MD on 08/13/17 CNPTOUTREACH Observed: 08/13/2017 Status: COMPLETED Source: [place] 12:00 AM [facility] REPOSITORY Patient Outreach (PHRXRF) MAXX KNOTT ([id number]) 1950 M Date Time Provider Department 08/13/17 BEULAH HOGAN PHARMD During your visit today, we recorded the following information about you: Beulah Hogan, Katey 08/20/2017 11:18 AM Signed TRANSITION CARE MANAGEMENT (TCM) INITIAL CONTACT Provider Action/I: ? Schedulers -- Please assist patient with [...] will be made. SUMMARY: -Pt discharged from [facility] on 08/12/17. 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 - Peritonitis ([facility]) Social History Substance Use Topics [...] Myalgia - Hctz [Amiloride-Hyd* Swelling - Other Lake-3s Unknown brelinta - Ramipril Swelling - Simvastatin Myalgia - Voltaren [Diclofena* Unknown Preferred pharmacy: [facility] [address] [place] [address] - [address] - [phone] [facility]; [place] [address] [facility] [address] Medication Reconciliation: Legend: Stopped, New, Changed, Added [...] (FLONASE) 50 mcg/actuation nasal spray Use 1 Vulcan in the nose once daily as needed. furosemide (LASIX) 20 mg tablet Take 40 mg by mouth once daily as needed. gabapentin (NEURONTIN) 300 mg capsule Take 2 capsules by mouth daily at bedtime for 90 days. On reconcile dispense records Discontinued: 08/12/2017 11:38 AM D/c ARMED SECURITY OFFICER loratadine 10 mg cap Take 1 capsule [...] spent on patient: 30-45 minutes Beulah Hogan, Katey August 14, 2017 9:57 AM Pharmacy Transitional [...] instructed. FLUTICASONE 50 MCG/ACTUATION * Use 1 Vulcan in the nose once * NITROGLYCERIN 0.4 [...] More... Malnutrition of mild degree ([facility]) [E44.1] INVALID FOR* Priority: L More... CHF (congestive heart failure) ([facility]) [I50.9] INVALID FOR* Diverticulitis of [...] ALLIED HEALTH Observed: 08/12/2017 Status: COMPLETED Source: [place] 12:23 PM [facility] REPOSITORY HNO ID: [id number] Author: Emy (Rn) MITCHELL Nair Service: Home Care Services Author Type: Registered Nurse Type: Allied Health Filed: 08/13/2017 12:22 PM Note Text: MULTIMEDIA MANAGER NOTE SERVICE DATE: 08/13/2017 SERVICE TIME: 12:20 PM Discharge: Aware of Discharge home 08/12 Physician order placed for Home Care Services Home Care Agency: n/a Start of care date: n/a Supplies ordered: n/a Patient/Family agree to discharge plan: n/a TC to patient [phone] and msg left to see if he wants HHC. No return call yet. SIGNATURE: Emy Nair RN PATIENT NAME: Maxx Knott DATE: August 13, 2017 TIME: 12:20 PM CNDS Observed: 08/12/2017 Status: COMPLETED Source: [place] 11:40 AM [facility] REPOSITORY HNO ID: [id number] Author: Stephanie Sanchez Service: Hospital Medicine Author [...] Information: FOLLOW-UP APPOINTMENTS ALREADY SCHEDULED WITH A [facility] PROVIDER: No future appointments. DISCHARGE MEDICATION: Current [...] inhaler Inhale as instructed. fluticasone (FLONASE) 1 Vulcan Use 1 Vulcan in the nose once daily as needed. [...] AM PROGRESS Observed: 08/12/2017 Status: COMPLETED Source: [place] 11:05 AM CLINIC OTHER CAMPUS REPOSITORY O ID: [id number] Author: Stephanie Sanchez Service: Hospital Medicine Author [...] needs to f/u with outpt physician. Per TEREZA, Ratna Bermudez DO had prescribed 15 tabs Pt states [...] NURSING PROG Observed: 08/11/2017 Status: COMPLETED Source: [place] 2:04 PM [facility] [place] REPOSITORY HNO ID: [id number] Author: Radha (Mitchell) MITCHELL Montelongo Service: Nursing Author Type: Registered Nurse Type: Nursing Progress Note Filed: 08/11/2017 2:05 PM Note Text: Dr. Hernandez was paged due to patients high BP. She ordered to give the hydralazine and lisinopril and recheck. BP was checked again and now is 181/50. Dr. Hernandez was notified. PROGRESS Observed: 08/11/2017 Status: COMPLETED Source: [place] 9:09 AM [facility] [place] REPOSITORY HNO ID: [id number] Author: Obi Powers (Fel) Service: (none) Author [...] 11, 2017 TIME: 9:09 AM PAGER: Luciano elvine SOCIAL WORK Observed: 08/10/2017 Status: COMPLETED Source: [place] 2:53 PM CLINIC OTHER CAMPUS REPOSITORY HNO ID: [id number] Author: CINDY Prather (Lisw) Service: Social Work Author Type: Shipping Order Clerk Type: Social Work Filed: 08/10/2017 2:57 PM [...] 10, 2017 TIME: 2:54 PM PAGER/CONTACT #: [phone] ALLIED HEALTH Observed: 08/10/2017 Status: COMPLETED Source: [place] 12:20 PM [facility] [place] REPOSITORY HNO ID: [id number] Author: Paulette Peters Coord Service: (none) Author Type: (none) Type: Allied Health Filed: 08/10/2017 12:20 PM Note Text: MULTIMEDIA MANAGER NOTE SERVICE DATE: 08/10/2017 SERVICE TIME: 1220 Referral: Home Care referral received by: CM Will continue to follow for physician orders SIGNATURE: Paulette Peters Coord PATIENT NAME: Maxx Knott DATE: August 10, 2017 TIME: 12:20 PM CASE MGT INIT Observed: 08/10/2017 Status: COMPLETED Source: [facility] 12:06 PM CLINIC OTHER CAMPUS REPOSITORY HNO ID: [id number] Author: Taryn Hugo RN Service: Care Management Author Type: Registered Nurse Type: Care Mgt Initial Assessment Filed: 08/10/2017 12:16 PM Note Text: CARE MANAGEMENT: ASSESSMENT AND DISCHARGE PLAN SERVICE DATE: 08/10/2017 SERVICE TIME: 12:06 PM PRIMARY CARE PHYSICIAN: Bijan Perez MD ADMISSION STATUS: Inpatient Needs Prior to Discharge: Home Care Order (for PTOT) 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 No SOCIAL: Living Arrangement: Home Lives With: brother Financial Resources: N/A Primary Contact: Extended Emergency Contact Information Primary Emergency Contact: Mary Knott Address: [address] [place] [address] [place] [address] OF [facility] Mobile Relation: Brother Supportive: Yes Other Important Patient Contacts: None Caregiver Assessment: Caregiver is ready, willing and able to meet the patient's needs as recommended by the inter-professional team? No Caregiver Needed Patient's transition needs and plan for meeting these needs: current plan is d/c with [facility] Does the patient have an acute stroke diagnosis, or has the patient had a stroke during this admission? No Medication Adherence: I am convinced of the importance of my prescription medication: Agree completely - 0 I worry that my prescription medication will do more harm than good to me Disagree completely - 0 I feel financially burdened by my vbw-gl-ejrvbe expenses for my prescription medication: Disagree completely [...] EXPLAINED: Yes disclosed [facility] is affiliated with [facility] for [facility]. 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 +[facility] coverage, [facility] [place]. +driving. Agreeable to [facility] at d/c. No other needs identified at this time. Will continue to follow. SIGNATURE: Taryn Hugo RN PATIENT NAME: Maxx Knott DATE: August 10, 2017 TIME: 12:06 PM PAGER/CONTACT #: [phone] THERAPY NT Observed: 08/10/2017 Status: COMPLETED Source: [place] 10:59 AM CLINIC OTHER CAMPUS REPOSITORY O ID: [id number] Author: Annita (Otr/LBeth Holcomb Service: Occupational Therapy Author Type: Occupational Therapist Type: Therapy (PT/OT/Speech/Resp) Filed: 08/10/2017 11:13 AM Note Text: Occupational Therapy Evaluation SERVICE DATE: 08/10/2017 SERVICE TIME: 1019 to 1043 ROOM: [id number] Recommended Discharge Disposition: Home OT Anticipated Discharge [...] living (ADL);Muscle Weakness (generalized) Interventions Provided: Evaluation;Self [facility] Management (05469) $ Evaluation-Low (08233) Billed Units: 1 unit $ Evaluation-Moderate (34664) Billed Units: 0 units Self [facility] Management (11052) Treatment Minutes: 9 1 unit Skilled Intervention(s): [...] Self Care Goal Status (G8988): CI (08/10/17 1019) Based on clinical assessment and the score [...] artery disease) 2005 CAD s/p CABG x3 (OXWD-WAA-lsjoib, DVJ-XBR-sdomnp, QVS-PW1-vvsegfbp) (2005 at [place]) - Current every day smoker PT SMOKES A PIPE - Diverticulitis Perforated Diverticulitis - Diverticulitis of sigmoid colon 05/15/2017 Added automatically from request for surgery [id number] - Pacemaker 02/16/2017 s/p PPM () 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 Patient with c/o 5/10 pain in [...] complete details for this therapy evaluation/treatment. SIGNATURE: Annita Holcomb OTR/L PATIENT NAME: Maxx Knott DATE: August 10, 2017 TIME: 10:59 AM PAGER: [phone] CONSULT PROG Observed: 08/10/2017 Status: COMPLETED Source: [place] 10:36 AM [facility] REPOSITORY HNO ID: [id number] Author: Luana KingRn) MITCHELL Sawyer Service: Wound/Ostomy [...] to assist with colostomy care at home. supervisor policy change clerks to follow. SIGNATURE: Luana Sawyer RN PATIENT NAME: Maxx Knott DATE: August 10, 2017 TIME: 10:37 AM CONTACT#: [id number] THERAPY NT Observed: 08/10/2017 Status: COMPLETED Source: [place] 9:28 AM [facility] [place] REPOSITORY HNO ID: [id number] Author: Radhames Sanders Service: Physical Therapy Author Type: Physical Therapist Type: Therapy (PT/OT/Speech/Resp) Filed: 08/10/2017 9:39 AM Note Text: Physical Therapy Evaluation SERVICE DATE: 08/10/2017 SERVICE TIME: 820 to 854 ROOM: [id number] Recommended Discharge Disposition: Home PT Anticipated Discharge [...] discharge from hospital. 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 Patient Disposition at Start of Session: Supine in Bed Patient Disposition at End of Session: OOB in Chair;Call Alvarez in [place] Tolerated Full Session Physical Therapy Problem List: Education Deficit;Pain;Safety Deficits;Decreased Activity Tolerance;Decreased Strength;Functional Mobility Impairment;Balance Impaired Patient /Caregiver Goals: Go Home Goals for Plan of Care: Ambulate with: Independent Distance: 250 Device: (none) Goal: Cpb-hn-ybren x5 <12 seconds to demonstrate functional strength and decreased risk of falls Rehab Potential: Good PLAN: Treatment Frequency (times per week): 3 (1-3) Current admission Treatment Interventions: Education;Self Care / Home Management;Energy Conservation Training;Strengthening;Functional Mobility Training;Balance Training;Pain Management Plan of Care developed with: Patient TREATMENT INTERVENTIONS: Therapy Diagnosis: Reduced mobility-other;Muscle Weakness (generalized);Unsteadiness on feet;Difficulty walking-musculoskeletal Interventions Provided: Evaluation;Therapeutic Activity (83606) $ Evaluation-Low (85715) Billed Units: 1 unit Therapeutic Activity (29757) Treatment Minutes: 10 1 unit Skilled Intervention(s): [...] artery disease) 2005 CAD s/p CABG x3 (PCGV-ODZ-jgnxwu, KMJ-DFY-dxmfsl, RAH-BW4-stvmkint) (2006 at [place]) - Current every day smoker PT SMOKES A PIPE - Diverticulitis Perforated Diverticulitis - Diverticulitis of sigmoid colon 05/15/2017 Added automatically from request for surgery [id number] - Pacemaker 02/16/2017 s/p PPM () 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 - Peritonitis ([facility]) PAST SURGICAL HISTORY Procedure Laterality [...] With: Family (brother) Assistance Available: (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 Feels back [...] Oral 63 18 97 % - - 08/09/17 2026 150/54 37.2 ?C (99 ?F) Oral 70 [...] this moment Ostomy care/wound care consult F//u [facility] ? 8. Incidentally found 12 mm right upper lobe nodule: POA, stable Tobacco abuse May need outpt f/u 9. Diverticulosis: POA, stable Senna s ? 10. Hypertension: POA, stable -cont home meds. Cont to monitor John Roland MD August 10, 2017 9:58 AM SIGNATURE: John Roland MD PATIENT NAME: Maxx Knott DATE: August 10, 2017 TIME: 9:20 AM PAGER/CONTACT #: luciano abner HEMOGRAM/DIFF Collected: 08/10/2017 Status: F Source: [facility] 4:33 AM HEALTH SYSTEM REPOSITORY TYPE CODE [...] 2.51 LAB MONON(LOIN 0.30-0.82 thou/cmm C) Abs. Wirt 0.67 LAB EOSN(LOINC 0.04-0.54 thou/cmm ) Abs. Eosin 0.16 LAB BASON(LOIN 0.01-0.08 thou/cmm C) Abs. Baso 0.03 Performed By: #### CBCD1 #### [place] [address] BASIC PANEL Collected: 08/10/2017 Status: F Source: [address] SYSTEM REPOSITORY TYPE CODE TESTS RESULT [...] Gap 9 Performed By: #### P8 #### [place] [address] MAGNESIUM BLOOD Collected: 08/10/2017 Status: F Source: [address] SYSTEM REPOSITORY TYPE CODE TESTS RESULT OUT OF REFERENCE UNITS RANGE LAB MAG(LOINC) 1.6-2.6 mg/dL Magnesium Blood 2.2 Performed By: #### MAG #### [facility] [address] [place] [id number] PHOSPHORUS BLOOD Collected: 08/10/2017 Status: F Source: [facility] 4:33 AM HEALTH SYSTEM REPOSITORY TYPE CODE TESTS RESULT OUT OF REFERENCE UNITS RANGE LAB PHOS(LOINC 2.5-4.9 mg/dL ) Phosphorus Blood 4.0 Performed By: #### PHOS #### [facility] [address] [place] [address] MDRD GFR Collected: 08/10/2017 Status: F Source: [facility] 4:33 AM HEALTH SYSTEM REPOSITORY TYPE CODE TESTS RESULT OUT OF RANGE REFERENCE UNITS LAB GFRFN(LOINC >60mL/min/1.73m ) 2 eGFR >60 Result Comment: If the patient is , multiply the result by 1.210. Performed By: #### GFR #### [facility] [address] [place] [address] NURSING PROG Observed: 08/10/2017 Status: COMPLETED Source: [place] 4:30 AM [facility] REPOSITORY HNO ID: [id number] Author: Tierra (Rn) MITCHELL Chatman Service: Nursing Author Type: Registered [...] POTASSIUM BLOOD Collected: 08/09/2017 Status: F Source: [facility] 10:15 PM HEALTH SYSTEM REPOSITORY TYPE CODE TESTS RESULT OUT OF REFERENCE UNITS RANGE LAB K(LOINC) 3.5-5.1 mEq/L Low Potassium Blood 3.4 Performed By: #### K #### [facility] [address] [place] [address] CONSULT Observed: 08/09/2017 Status: COMPLETED Source: [place] 9:48 PM [facility] REPOSITORY HNO ID: [id number] Author: Mary Urrutia Service: General Surgery Author [...] (abdominal aortic aneurysm) without rupture ([facility]) 05/13/[address] a/p - CAD (coronary artery disease) 2005 CAD s/p CABG x3 (MQAB-XOM-yyuhbn, GJD-MJB-jvceje, AGH-QW7-fbhggauq) (2005 at [place]) - Current every day smoker PT SMOKES A PIPE - Diverticulitis Perforated Diverticulitis - Diverticulitis of sigmoid colon 05/15/2017 Added automatically from request for surgery [id number] - Pacemaker 02/16/2017 s/p PPM () 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 [...] can follow up with [facility] as scheduled - Will sign off thank you - Discussed with Dr. Urrutia SIGNATURE: Jovani Queen MD PATIENT NAME: Maxx Knott DATE: August 09, 2017 TIME: 9:48 PM PAGER: [phone] HISTORY PHYSICAL Observed: 08/09/2017 Status: COMPLETED Source: [place] 9:12 PM CLINIC OTHER CAMPUS REPOSITORY HNO ID: [id number] Author: Byron Morel Service: Hospital Medicine Author Type: Physician Type: HANDP Filed: 08/09/2017 9:50 PM Note Text: DEPARTMENT OF HOSPITAL MEDICINE HISTORY AND PHYSICAL EXAM SERVICE DATE: 08/09/2017 SERVICE TIME: 8:30 pm Primary Care Physician: Bijan Perez MD NIGHT AND WEEKEND COVERAGE: From 7am - 7pm, please call [phone] After 7pm, please call cross cover pager #[phone] Subjective CHIEF COMPLAINT: Fall earlier today HPI: This is a 67 year old man with a past medical history of coronary artery disease s/p CABG currently only taking aspirin, ischemic cardiomyopathy, tobacco abuse, diverticulitis with perforation in the past, colostomy with parastomal hernia, pacemaker placement. Patient says his cardiology followup is usually at and that he has been following in [place] for his parastomal hernia. 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 [...] Myalgia - Hctz [Amiloride-Hyd* Swelling - Other Lake-3s Unknown brelinta - Ramipril Swelling - Simvastatin [...] TIME: 9:12 PM PAGER/CONTACT #: [phone] etx [phone] ED NOTE Observed: 08/09/2017 Status: COMPLETED Source: [place] 8:13 PM [facility] REPOSITORY HNO ID: [id number] Author: Rebekah KingRnBeth Maguire RN Service: Emergency Medicine Author Type: [...] ED NOTE Observed: 08/09/2017 Status: COMPLETED Source: [place] 6:52 PM [facility] REPOSITORY HNO ID: [id number] Author: Russell Hopper RN Service: Emergency Medicine Author Type: [...] ED NOTE Observed: 08/09/2017 Status: COMPLETED Source: [place] 6:16 PM [facility] REPOSITORY HNO ID: [id number] Author: Russell Hopper RN Service: Emergency Medicine Author Type: Registered Nurse Type: ED Notes Filed: 08/09/2017 6:17 PM Note Text: Noted pt medicated per order and provided with box lunch. Pt sts will attempt to ambulate after pain pills kick in md made aware ED NOTE Observed: 08/09/2017 Status: COMPLETED Source: [place] 5:26 PM [facility] REPOSITORY HNO ID: [id number] Author: Russell Hopper RN Service: Emergency Medicine Author Type: Registered Nurse Type: ED Notes Filed: 08/09/2017 5:28 PM Note Text: Pt reassessed appears in no obvious distress sitting upright in bed URINALYSIS ROUTINE Collected: 08/09/2017 Status: F Source: [facility] 3:24 PM HEALTH SYSTEM REPOSITORY TYPE CODE [...] Urine NEGATIVE LAB SPG(LOINC) 1.005-1.030 Specific 1.024 [place], Ur LAB PHUR(LOINC 5.0-8.0 ) pH,Urine 7.0 [...] 0.0 Performed By: #### URIN2 #### [facility] [address] [place] [address] ED NOTE Observed: 08/09/2017 Status: COMPLETED Source: [place] 2:59 PM CLINIC OTHER CAMPUS REPOSITORY HNO ID: [id number] Author: Russell (Rn) MITCHELL Hopper Service: Emergency Medicine Author Type: Registered Nurse Type: ED Notes Filed: 08/09/2017 3:00 PM Note Text: Pt currently gone to radiology, rn to reassess upon return CT HEAD W/O CONTRAST Observed: 08/09/2017 Status: F Source: [facility] 2:56 PM HEALTH SYSTEM REPOSITORY Performed at [facility] APPROVED BY: Dileep Oneal [...] SPINE W/O Observed: 08/09/2017 Status: F Source: [facility] 2:56 PM HEALTH SYSTEM REPOSITORY Performed at [facility] APPROVED BY: Dileep Oneal [...] AND PELVIS Observed: 08/09/2017 Status: F Source: [facility] WITH CONTRAST 2:56 PM HEALTH SYSTEM REPOSITORY Performed at [facility] APPROVED BY: Dileep Oneal [...] CHEST WITH Observed: 08/09/2017 Status: F Source: [place] 2:56 PM HEALTH SYSTEM REPOSITORY Performed at [facility] APPROVED BY: Dileep Oneal [...] ED NOTE Observed: 08/09/2017 Status: COMPLETED Source: [place] 2:35 PM CLINIC OTHER CAMPUS REPOSITORY HNO ID: [id number] Author: Russell (Rn) MITCHELL Hopper Service: Emergency Medicine Author Type: Registered Nurse Type: ED Notes Filed: 08/09/2017 2:36 PM Note Text: Transport made aware pt ready for ordered ct's HEMOGRAM/DIFF Collected: 08/09/2017 Status: F Source: [facility] 1:30 PM HEALTH SYSTEM REPOSITORY TYPE CODE [...] 1.53 LAB MONON(LOIN 0.30-0.82 thou/cmm C) Abs. Wirt 0.48 LAB EOSN(LOINC 0.04-0.54 thou/cmm ) Low Abs. Eosin 0.01 LAB BASON(LOIN 0.01-0.08 thou/cmm C) Abs. Baso 0.03 Performed By: #### CBCD1 #### [place] [address] BASIC PANEL Collected: 08/09/2017 Status: F Source: [facility] 1:30 PM HEALTH SYSTEM REPOSITORY TYPE CODE [...] Blood 9.2 Performed By: #### P8 #### [place] [address] MDRD GFR Collected: 08/09/2017 Status: F Source: [facility] 1:30 PM HEALTH SYSTEM REPOSITORY TYPE CODE TESTS RESULT OUT OF RANGE REFERENCE UNITS LAB GFRFN(LOINC >60mL/min/1.73m ) 2 eGFR >60 Result Comment: If the patient is , multiply the result by 1.210. Performed By: #### GFR #### [place] [address] ED PROV NOTE Observed: 08/09/2017 Status: COMPLETED Source: [place] 1:11 PM CLINIC OTHER CAMPUS REPOSITORY HNO ID: [id number] Author: Niki Murillo MD Service: Emergency Medicine [...] By Time Potassium: see below (Reviewed) Niki (Res) MD Kiran 08/09 1540 Signature: Courtney Resendiz MD Date: [...] (abdominal aortic aneurysm) without rupture ([facility]) 05/13/[address] a/p - CAD (coronary artery disease) 2005 CAD s/p CABG x3 (JAZR-YLT-wlphnu, IGE-RWR-vtxuws, RPC-QS4-zbsltrww) (2006 at [place]) - Current every day smoker PT SMOKES A PIPE - Diverticulitis Perforated Diverticulitis - Diverticulitis of sigmoid colon 05/15/2017 Added automatically from request for surgery [id number] - Pacemaker 02/16/2017 s/p PPM () 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 Courtney Resendiz MD 08/09 1326 67-year-old male presents for back and neck [...] ED NOTE Observed: 08/09/2017 Status: COMPLETED Source: [place] 12:24 PM CLINIC OTHER CAMPUS REPOSITORY HNO ID: [id number] Author: Tracey (Dwight) Dwight Chong Service: (none) Author Type: Assistant Infant Teacher and Media Account Executive Type: ED Notes Filed: 08/09/2017 12:24 PM Note Text: Bed: ED-32 Expected date: 08/09/17 Expected time: 11:55 AM Means of arrival: Brian HEIN Comments: brian back pain BLANCHE/CT ABD/PELVIS WITH Observed: 08/01/2017 Status: F Source: [place] 4:23 PM [facility] REPOSITORY Patient Name: MAXX KNOTT STUDY: BLANCHE/CT ABD/PELVIS WITH; 08/01/2017 4:05 pm INDICATION: IV and PO Contrast Agent=water;. COMPARISON: 07/05/2017 ACCESSION NUMBER(S): [id number] ORDERING CLINICIAN: KASSANDRA THOMPSON TECHNIQUE: Contiguous axial CT sections are performed from the lung bases to the lesser trochanters following the uneventful administration of 123 cc of intravenous Omnipaque 350 and oral water. FINDINGS: The lung bases are clear. There are multilevel discogenic degenerative changes lumbar spine more pronounced from L4 through S1. The osseous structures are intact. There is some levo convexity of the lower lumbar spine. There are osteoarthritic changes of both hips at the superior joint space. The gallbladder is mildly distended. There is a full toward the gallbladder neck. There are no calcified gallstones or wall thickening. The liver, spleen, pancreas, and right adrenal gland are of normal CT appearance. There is fullness of the left adrenal gland with nodularity at the genu of the gland. This appearance is stable from 07/05/2017. The kidneys are symmetric in size. There is a too small to characterize hypodensity at the mid to lower right kidney. There is an exophytic hypodensity in the mid left kidney laterally which measures 2.7 x 2.7 cm in diameter. This is not of simple fluid attenuation though may represent a cyst. This finding is stable in the interval. There is an adjacent 11 mm cortical cyst in the lateral left kidney. There are 1 or 2 tiny too small to characterize hypodensities in the upper and lower pole. There is no hydronephrosis bilaterally. There is no definite renal calculus. There is no obstructing ureteral calculus. There is no calculus in the urinary bladder. There is mild diffuse wall prominence of the urinary bladder suspicious for bladder wall hypertrophy. The prostate gland is enlarged measuring at least 6.2 x 6.2 cm in AP and transverse diameter. The abdominal aorta reaches 3.1 x 3.0 cm in cross-section below the level of the renal arteries. There is no retroperitoneal mass or fluid collection. There are multiple diverticula in the distal colon. There is some wall prominence of the distal descending and proximal sigmoid colon which is similar to the previous study and may be chronic. A right mid abdominal ostomy is in place which contains ascending and transverse colon as well as multiple intervening small bowel loops. There are no dilated bowel loops within the ostomy or evidence of bowel wall thickening. No surrounding fluid collection is identified. There is no intraperitoneal bowel distension or infiltration of the bowel mesentery. There is no free air free fluid collection within the abdomen or pelvis. IMPRESSION: Right mid abdominal ostomy site containing right loop colostomy. There is a peristomal hernia containing multiple intervening small-bowel loops. The small bowel loops are more prominent than previously noted though are not significantly dilated or exhibit wall thickening. No surrounding fluid collections are identified. There is no bowel obstruction. The remainder of the abdomen and pelvis is stable from 07/05/2017 as detailed above. Dictated by: Electronically Signed by: Hue Gutiérrez Electronically Signed on: 08/01/2017 4:23 PM BLANCHE/CHEST 2 VIEWS Observed: 08/01/2017 Status: F Source: [place] 2:08 PM [facility] REPOSITORY Patient Name: MAXX KNOTT STUDY: BLANCHE/CHEST 2 VIEWS; 08/01/2017 1:46 pm INDICATION: cp. COMPARISON: 06/21/2017 ACCESSION NUMBER(S): [id number] ORDERING CLINICIAN: KASSANDRA THOMPSON TECHNIQUE: 3 radiographs of the chest were performed in two views. FINDINGS: Postoperative changes are identified with midline sternotomy wires and vascular clips. A dual lead intracardiac device is stable in position with lead tips overlying the right atrium and right ventricle. The heart is mildly enlarged. The pulmonary vessels are within normal limits. The lungs and pleural spaces remain clear. The osseous structures are intact. There is some eventration of left hemidiaphragm which is unchanged. IMPRESSION: No sign of acute cardiopulmonary disease or significant interval change from 06/21/2017. Dictated by: Electronically Signed by: Hue Gutiérrez Electronically Signed on: 08/01/2017 2:08 PM TROP POCT Collected: 08/01/2017 Status: F Source: [place] 1:07 PM [facility] REPOSITORY Order Comment: Troponin POCT added per lab protocol TYPE CODE TESTS RESULT OUT OF REFERENCE UNITS RANGE LAB [id number](USHA ng/mL NC) Troponin POCT <0.02 Result Comment: <0.4 : Negative 0.04 - 0.50 : Possible Cardiac Damage >0.5 : Consistent With Cardiac Damage Testing performed at [facility] ED/ Lab, [address] [place] [address]. AUTO DIFF Collected: 08/01/2017 Status: F Source: [place] 1:06 PM [facility] REPOSITORY TYPE CODE TESTS RESULT OUT OF REFERENCE UNITS RANGE LAB NEUT(LOINC 41.0-73.8 % ) High Neutrophil% 79.8 LAB LYMP%(LOIN 17.0-44.0 % C) Low Lymph % 14.7 LAB MONO%(LOIN 5.3-12.5 % C) Low Wirt % 4.9 LAB EO%(LOINC) 0.7-6.5 % Low Eo% 0.4 LAB BASO%(LOIN 0.0-2.4 % C) Baso% 0.2 LAB ANEUT(LOIN 1.8-7.5 x10E9/L C) High Neutrophil 9.6 LAB ALYMP(LOIN 1.1-3.5 x10E9/L C) Lymphocyte 1.8 LAB AMONO(LOIN 0.3-1.0 x10E9/L C) Monocyte 0.6 LAB AEO(LOINC) 0.0-0.5 x10E9/L Eosinophil 0.0 LAB ABASO(LOIN 0.0-0.2 x10E9/L C) Basophil 0.0 ZCBCD Collected: 08/01/2017 Status: F Source: [place] 1:06 PM [facility] REPOSITORY TYPE CODE TESTS RESULT OUT OF RANGE REFERENCE UNITS LAB [id number](USHA 4.3-10.5 x10E9/L NC) High WBC 12.0 Result Comment: Testing performed at [facility] ED/ Lab [address] [place] [address] LAB 7759144(LOINC) 4.18-5.87 x10E12/L Low RBC 3.86 Result Comment: Testing performed at [facility] ED/ Lab [address] [place] [address] LAB 0896912(LOINC) 13.4-17.5 g/dL Low Hemoglobin 12.2 Result Comment: Testing performed at [facility] ED/ Lab [address] [place] [address] LAB 1262989(LOINC) 37.5-49.2 % Low Hematocrit 36.1 Result Comment: Testing performed at [facility] ED/ Lab [address] [place] [address] LAB MCV(LOINC) 80.0-100.0 fL MCV 93.5 Result Comment: Testing performed at [facility] ED/ Lab [address] [place] [address] LAB MCH(LOINC) 26.5-33.0 pg MCH 31.6 Result Comment: Testing performed at [facility] ED/ Lab [address] [place] [address] LAB MCHC(LOINC) 32.6-36.0 g/dL MCHC 33.8 Result Comment: Testing performed at [facility] ED/ Lab [address] [place] [address] LAB 9290501(LOINC) 144-400 x10E9/L Platelet 391 Result Comment: Testing performed at [facility]/ Lab [address] [place] [address] LAB 283418(LOINC) 7.2-10.3 fL Mean 10.3 Plt Vol Result Comment: Testing performed at [facility]/ Lab [address] [place] [address] LAB 152373(LOINC) 11.4-16.0 % RDW 14.6 Result Comment: Testing performed at [facility]/ Lab [address] [place] [address] PT Collected: 08/01/2017 Status: F Source: [place] 1:06 PM [facility] REPOSITORY TYPE CODE TESTS RESULT OUT OF REFERENCE UNITS RANGE LAB 452756(USHA 9.0-11.8 seconds AR) High Protime 12.4 LAB INR(LOINC) 0.87-1.16 INR 1.15 Result Comment: Testing performed by [facility] ED/ Lab Recommended ranges for Protime INR: 2.0-3.0 for most medical and surgical thromboembolic states. 2.5-3.5 for artificial heart valves and recurrent embolism. NOTE: Utilizing the INR is appropriate only for those patients who are taking oral anticoagulant therapy, are stable for at least two weeks and have appropriately responded to the anticoagulant drug. LAB 974056(LOINC) Coumadin unk LIPASE Collected: 08/01/2017 Status: F Source: [place] 1:06 PM [facility] REPOSITORY TYPE CODE TESTS RESULT OUT OF REFERENCE UNITS RANGE LAB 7828065(USHA 9-82 U/L NC) Low Lipase 6 Result Comment: Testing performed at [facility] ED/ Lab, [address] [place] [address]. CMP Collected: 08/01/2017 Status: F Source: [place] 1:06 PM [facility] REPOSITORY TYPE CODE TESTS RESULT OUT OF REFERENCE UNITS RANGE LAB 8780230(USHA 136-144 mmol/L NC) Sodium 138 Result Comment: Testing performed at [facility] ED/ Lab, [address] [place] [address]. LAB 0008565(LOINC) 3.4-5.1 mmol/L Potassium 4.7 Result Comment: Testing performed at [facility]/ Lab, [address] [place] [address]. LAB 2624504(LOINC) 98-107 mmol/L Chloride 103 Result Comment: Testing performed at [facility]/ Lab, [address] [place] [address]. LAB 9746822(LOINC) 22-32 mmol/L CO2 27 Result Comment: Testing performed at [facility]/ Lab, [address] [place] [address]. LAB 943683(LOINC) 5.0-19.0 mmol/L Anion Gap 8.0 Result Comment: Testing performed at [facility]/ Lab, [address] [place] [address]. LAB 8613286(LOINC) 70-100 mg/dL High Glucose 110 Result Comment: Testing performed at [facility]/ Lab, [address] [place] [address]. LAB 5341337(LOINC) 8-26 mg/dL BUN 15 Result Comment: Testing performed at [facility]/ Lab, [address] [place] [address]. LAB 5567726(LOINC) 0.60-1.30 mg/dL Creatinine 1.00 Result Comment: Testing performed at [facility]/ Lab, [address] [place] [address]. LAB 6998540(LOINC) 8.6-10.6 mg/dL Calcium 9.4 Result Comment: Testing performed at [facility]/ Lab, [address] [place] [address]. LAB 9521560(LOINC) 6.5-8.1 g/dL Total Protein 6.8 LAB 8762479(LOINC) 3.5-5.0 g/dL Albumin 4.0 Result Comment: Testing performed by [facility] ED/ Lab LAB 0899469(LOINC) 0.3-1.2 mg/dL Bilirubin Total 0.3 LAB 2600122(LOINC) 9-39 IU/L AST (SGOT) 32 LAB 3728026(LOINC) 7-45 IU/L ALT (SGPT) 26 LAB 8275105(LOINC) 32-91 IU/L Alk Phos 66 LAB 989698([facility]) Bun/CretRatio 15.0 Result Comment: Testing performed at [facility] ED/ Lab, [address] [place] [address]. LAB 339323([facility]) mOsm/kg Osmolality-Calc 277 Result Comment: Testing performed at [facility] ED/ Lab, [address] [place] [address]. TROPONIN RFX Collected: 08/01/2017 Status: F Source: [place] 1:06 PM [facility] REPOSIT[facility] Order Comment: Trop Rfx Replaces Trop order TYPE CODE TESTS RESULT OUT OF REFERENCE UNITS RANGE LAB 3140144(USHA ng/mL NC) Troponin .02 Result Comment: <0.04 Normal 0.04 - 0.50 Possible cardiac damage >0.50 Consistent with cardiac damage Testing performed by [facility] ED/ Lab, [address] [place] [address]. RUM Collected: 08/01/2017 Status: F Source: [place] 1:06 PM [facility] REPOSITORY TYPE CODE TESTS RESULT OUT OF REFERENCE UNITS RANGE LAB 220478(USHA Yellow NC) Color Yellow LAB 585079(USHA Clear NC) Ur Appearance Clear LAB 0409784(LO Negative INC) U Glucose Negative LAB 987529(USHA Negative NC) Bilirubin Negative LAB 4039618(LO Negative INC) Ketones Negative LAB 1299103(LO 1.001-1.03 INC) Urine Spec [place] <=1.005 LAB 9866071(LO Negative INC) Blood Negative LAB 4228616(LO 4.8 - 8.0 INC) Urine Ph 6.5 LAB 4503510(LO Negative INC) Protein Negative LAB 5461520(LO <1.0 EU/dL INC) Urobilinogen 0.2 LAB 6856517(LO Negative INC) Nitrite Negative LAB 8699822(LO Negative INC) Leukocyte Tania Negative Result Comment: Testing performed by [facility] ED/ Lab LAB 046224(LOINC) Urine Comment MICR N/A ED NOTE Observed: 07/30/2017 Status: COMPLETED Source: [place] 12:22 PM [facility] REPOSITORY HNO ID: [id number] Author: Lenin KingRn) MITCHELL Sullivan Service: Emergency Medicine Author Type: Registered Nurse Type: ED Notes Filed: 07/30/2017 12:23 PM Note Text: Discharge instructions for chest pain discussed with patient. Pt instructed to follow up with Dr. Perez as soon as possible. Pt verbalized understanding of discharge instructions. ED NOTE Observed: 07/30/2017 Status: COMPLETED Source: [place] 11:32 AM [facility] REPOSITORY HNO ID: [id number] Author: Lenin Toth) MITCHELL Sullivan Service: Emergency [...] CARDIAC PERF Observed: 07/30/2017 Status: F Source: [place] STRESS/EXERCISE 9:58 AM [facility] REPOSITORY * * *Final Report* * * DATE OF EXAM: Jul 30 2017 9:58AM [facility] 0004 - [place] CARDIAC PERF STRESS/EXERCISE / [...] 60 minutes later. See administered doses below. Main [place] Date of service: 07/30/2017 8:03:53 AM Ordering [...] cavity size is unchanged with stress. Final Geriatric Physical Therapist: ISpeak Transcribe Date/Time: Jul 30 2017 8:03A Dictated by : SIXTO STATON MD This examination was interpreted and the report reviewed and electronically signed by: SIXTO STATON MD on Jul 30 2017 10:56AM EST [id number] NURSING PROG Observed: 07/30/2017 Status: COMPLETED Source: [place] 8:56 AM [facility] REPOSITORY O ID: [id number] Author: Jade Pinto (Rn) MITCHELL Perez Service: Nuclear Medicine Author Type: Registered Nurse Type: Nursing Progress Note Filed: 07/30/2017 8:56 AM Note Text: RADIOLOGY SERVICE PROGRESS NOTE SERVICE DATE: 07/30/2017 SERVICE TIME: 8:56 AM PATIENT IDENTITY VERIFICATION COMPLETED USING TWO (2) METHODS: Patient confirmed name and Date of verbally. PATIENT GENDER DATA: male ALLERGIES: Reviewed and unchanged MEDICATIONS REVIEWED BY: Railroad Passenger Agent PROCEDURE TYPE: NM STRESS: 0.4 mg of [...] safety can be found using this link: [email or web address] %[email or web address]-%20Diagnostic%20Nuclear%20Medicine%20Procedures.[email or web address] SIGNATURE: Jade Perez RN PATIENT NAME: Maxx Knott DATE: July 30, 2017 TIME: 8:56 AM PAGER/CONTACT #: [phone] ED PROV NOTE Observed: 07/30/2017 Status: COMPLETED Source: [place] 8:34 AM [facility] REPOSITORY HNO ID: [id number] Author: Whitley Miller Service: Emergency Medicine Author Type: Nurse Practitioner Type: ED Provider Notes Filed: 07/30/2017 4:07 PM Note Text: CDU GENERAL PROGRESS NOTE SERVICE DATE: 07/30/2017 SERVICE TIME: 833 ASSESSMENT: Encounter Diagnosis ICD-10-CM 1. Chest pain, unspecified type R07.9 2. Coronary artery disease involving klawock coronary artery of klawock heart, angina presence unspecified I25.10 3. Essential [...] on exertion. Patient was recently admitted to [facility] for blood from his ostomy. 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 [...] independent read of EKG was performed by Whitley Miller APRN.[facility] Labs reviewed and interpreted. To high sensitivity troponins were stable. HANDH was stable. Potassium within normal limits. Troponin negative. Lipase within normal limits. CMP yesterday showed low potassium at 3.4. Radiographs were reviewed. Chest x-ray shows no acute process. Stress test was negative for ischemia. DATA: Diagnostic tests reviewed for today's visit: Most recent labs and imaging results. Most recent EKG SIGNATURE: Whitley Miller APRN.[facility] PATIENT NAME: Mxax Knott DATE: July 30, 2017 Whitley Miller 07/30/17 1607 PROGRESS Observed: 07/30/2017 Status: COMPLETED Source: [place] 7:37 AM [facility] REPOSITORY HNO ID: [id number] Author: Jay Sheehan [facility] Service: (none) Author Type: (none) [...] EXAM PIV STATUS: Inpatient see LDA documentation PROCEDURE TYPE: NM Stress: 12.2mCi Qq32s-Mgnpdiq was administered IV for Rest Imaging at 07:35. 30.6 mCi Qk44y-Syknbgf was administered IV for Stress Imaging at 0850 by Jay Sheehan [facility]. PATIENT DISCHARGED TO: Patient taken to IP transport area for return to RNF/ICU/ED. A Diagnostic radioactive procedure has taken place, with no further precautions necessary other than routine body substance precautions. More information regarding radiation safety can be found using this link: [email or web address] %[email or web address]-%20Diagnostic%20Nuclear%20Medicine%[email or web address] SIGNATURE: Hue Traore [facility] PATIENT NAME: Maxx Knott DATE: July 30, 2017 TIME: 7:37 AM PAGER/CONTACT #: ED NOTE Observed: 07/30/2017 Status: COMPLETED Source: [place] 7:13 AM [facility] REPOSITORY HNO ID: [id number] Author: Lenin (Rn) MITCHELL Sullivan Service: Emergency Medicine Author Type: Registered Nurse Type: ED Notes Filed: 07/30/2017 7:14 AM Note Text: Patient transported to [facility] with Tech. ED NOTE Observed: 07/30/2017 Status: COMPLETED Source: [place] 7:07 AM [facility] REPOSITORY HNO ID: [id number] Author: Raquel (Rn) MITCHELL Marques Service: Emergency Medicine Author Type: Registered Nurse Type: ED Notes Filed: 07/30/2017 7:07 AM Note Text: Handoff report given to MITCHELL Fuentes. ED NOTE Observed: 07/30/2017 Status: COMPLETED Source: [place] 5:19 AM [facility] REPOSITORY HNO ID: [id number] Author: Maribell Cervantes (Engineering Program Manager) REILLY Wiggins Service: Emergency Medicine Author Type: [...] TROPONIN T Collected: 07/30/2017 Status: F Source: [place] 5:06 AM [facility] REPOSITORY TYPE CODE TESTS RESULT OUT OF REFERENCE UNITS RANGE LAB TROPT 0.000-0.029 ng/mL Troponin T <0.010 Performed By: #### BRAYAN, K1 #### [facility] [employer] [address] [place] [address] POTASSIUM Collected: 07/30/2017 Status: F Source: [place] 5:06 AM [facility] REPOSITORY TYPE CODE TESTS RESULT OUT OF REFERENCE UNITS RANGE LAB K 3.7-5.1 mmol/L Potassium 4.1 Performed By: #### BRAYAN, K1 #### [facility] [address] [place], [place] [address] ED NOTE Observed: 07/30/2017 Status: COMPLETED Source: [place] 4:30 AM [facility] REPOSITORY HNO ID: [id number] Author: Raquel KingRn) MITCHELL Marques Service: Emergency Medicine Author Type: Registered Nurse Type: ED Notes Filed: 07/30/2017 5:35 AM Note Text: Pt is 67 year old male transferred in and oriented to [place] [address] in with diagnosis of chest pain. Pt [...] ED NOTE Observed: 07/30/2017 Status: COMPLETED Source: [place] 4:30 AM [facility] REPOSITORY HNO ID: [id number] Author: Raquel KingRn) MITCHELL Marques Service: Emergency Medicine Author Type: Registered Nurse Type: ED Notes Filed: 07/30/2017 5:36 AM Note Text: Patient has an ID Band on , has an Allergy Band on, is in the bed/cart with Side Rails up x2 and has the Call Alvarez within reach. ED NOTE Observed: 07/30/2017 Status: COMPLETED Source: [place] 4:17 AM [facility] REPOSITORY HNO ID: [id number] Author: Pravin Melo RN Service: Emergency Medicine Author Type: Registered Nurse Type: ED Notes Filed: 07/30/2017 4:34 AM Note Text: Report called to Raquel GONZALEZ. Bed 13 ready. PROGRESS Observed: 07/30/2017 Status: COMPLETED Source: [place] 3:50 AM [facility] REPOSITORY HNO ID: [id number] Author: Melissa Ayala (Pharmacist) Service: Pharmacy Author Type: Pharmacist Type: Progress Notes Filed: 07/30/2017 3:51 AM Note Text: MEDICATION HISTORY AND MEDICATION RECONCILIATION Patient Name:Eric Knott : 1950 Source of history:Patient: Reliability of source: Appears reliable, clearly identified: Medication name and Medication frequency Medication Nonadherence Identified: No barriers noted The above information represents the best possible medication history: Yes Reconciliation completed? Yes All ARMED SECURITY OFFICER medications addressed by LIP Additional comments: N/A Allergies: ALLERGIES Allergen Reactions - Altaseptic Unknown - Crestor [Rosuvastat* Myalgia - Hctz [Amiloride-Hyd* Swelling - Other Lake-3s Unknown brelinta - Ramipril Swelling - Simvastatin Myalgia - Voltaren [Diclofena* Unknown Current ARMED SECURITY OFFICER Medications: Prior to Admission medications as of [...] (FLONASE) 50 mcg/actuation nasal spray Use 1 Vulcan in the nose once daily as needed. [...] TROPONIN T Collected: 07/30/2017 Status: F Source: [place] 2:50 AM [facility] REPOSITORY TYPE CODE TESTS RESULT [...] day MACE. Performed By: #### HSTNT #### [facility] [address] [place], [place] [address] ED NOTE Observed: 07/30/2017 Status: COMPLETED Source: [place] 1:10 AM [facility] REPOSITORY HNO ID: [id number] Author: Pravin Toth) MITCHELL Melo Service: Emergency Medicine Author Type: [...] monitor. PROGRESS Observed: 07/30/2017 Status: COMPLETED Source: [place] 12:57 AM [facility] REPOSITORY HNO ID: [id number] Author: Luis Manuel Barillas (Rt) Service: Radiology Author Type: Media Account Executive Type: Progress Notes Filed: 07/30/2017 12:57 AM [...] 2V FRONTAL/LAT Observed: 07/30/2017 Status: F Source: [place] 12:56 AM [facility] REPOSITORY * * *Final Report* * * [...] acute radiographic abnormality or significant interval change. Geriatric Physical Therapist: MAGI Transcribe Date/Time: Jul 30 2017 1:06A Dictated by : JAYLA MOREL MD This examination was interpreted and the report reviewed and electronically signed by: HUE SHAH MD on Jul 30 2017 1:46AM EST [id number] ED PROV NOTE Observed: 07/30/2017 Status: COMPLETED Source: [place] 12:43 AM [facility] REPOSITORY HNO ID: [id number] Author: Lisa Camacho MD Service: Emergency Medicine Author Type: Physician Type: ED Provider Notes Filed: 07/30/2017 11:59 PM Note Text: ED Provider Note Patient Name: Maxx Knott SERVICE DATE: 07/29/17 History Patient presents with: Shortness of Breath: worsening exertional SOB, midsternal CP x 2-3 days Chest Pain Blood In Stool: blood in stool from colostomy x 1 week - pt left AMA from [place] [facility] on 07/21 after admission for similar complaints. PMH of perforated diverticulitis HPI Comments: 67 yo M states he had onset MS chest pain and dyspnea on exertion onset one hour ago and he had his brother drive him from home in [place] to [facility], deferring 911 because you have better records on me. Patient was admitted [facility] until he left AMA 3 days ago. He states he had a court date he couldn't miss. He denies having need for blood transfusion this admission, had CBG > 10 years ago, last stent September 2016 at [facility]. Patient is a 67 year old male presenting with chest pain. History provided by: Patient and medical records historic interpreter used: No Chest Pain Pain location: Substernal [...] artery disease) 2005 CAD s/p CABG x3 (OGAI-JGQ-outerl, ZTY-OCG-lzsxby, UFN-YJ1-enytqzyl) (2006 at [place]) - Current every day smoker PT SMOKES A PIPE - Diverticulitis Perforated Diverticulitis - Diverticulitis of sigmoid colon 05/15/2017 Added automatically from request for surgery [id number] - Pacemaker 02/16/2017 s/p PPM () placed [...] Myalgia - Hctz [Amiloride-Hyd* Swelling - Other Lake-3s Unknown brelinta - Ramipril Swelling - Simvastatin [...] changes EPIC EMR reviewed, patient was admitted [facility] 07/21 to 07/25 when he signed out [...] (which is supposed to be scheduled at [facility] before he has reversal of his colostomy [...] type R07.9 2. Coronary artery disease involving klawock coronary artery of klawock heart, angina presence unspecified I25.10 3. Essential hypertension I10 4. Hypokalemia E87.6 Plan The Patient was ADMITTED TO: CDU. Condition at time of disposition: stable SIGNATURE: MD Lisa Johnson MD 07/30/17 3289 CBC AND DIFFERENTIAL Collected: 07/30/2017 Status: F Source: [place] 12:43 AM [facility] REPOSITORY TYPE CODE TESTS RESULT [...] k/uL Abs Lymph 2.93 LAB AMONO % Wirt% 7.1 LAB AAMONO <0.87 k/uL Abs Wirt 0.75 LAB AEOS % Eosin% 1.4 LAB AAEOS <0.46 k/uL Abs Eosin 0.15 LAB ABASO % Baso% 0.4 LAB AABASO <0.11 k/uL Abs Baso 0.04 LAB AUNRBC 0 /100 WBC NRBCs 0.0 LAB ABNRBC <0.01 k/uL Absolute nRBC <0.01 LAB DTYP DTYPE Auto Diff Performed By: #### CBCDIF, CMP, HSTNT, LIPA #### [facility] [address] [place], [place] [address] COMP METABOLIC PANEL Collected: 07/30/2017 Status: F Source: [place] 12:43 AM [facility] REPOSITORY TYPE CODE TESTS RESULT [...] By: #### CBCDIF, CMP, HSTNT, LIPA #### [facility] [address] [place], [place] [address] HIGH SENS TROPONIN T Collected: 07/30/2017 Status: F Source: [place] 12:43 AM [facility] REPOSITORY TYPE CODE TESTS RESULT [...] By: #### CBCDIF, CMP, HSTNT, LIPA #### [facility] [address] [place], [place] [address] LIPASE Collected: 07/30/2017 Status: F Source: [place] 12:43 AM [facility] REPOSITORY TYPE CODE TESTS RESULT OUT OF REFERENCE UNITS RANGE LAB LIPA 16-61 U/L Lipase 17 Performed By: #### CBCDIF, CMP, HSTNT, LIPA #### [facility] [address] [place], [place] [address] NURSING PROG Observed: 07/25/2017 Status: COMPLETED Source: [place] 2:46 PM [facility] REPOSITORY HNO ID: [id number] Author: Sandra KingRn) MITCHELL Szymanski Service: (none) Author Type: Registered Nurse Type: Nursing Progress Note Filed: 07/25/2017 2:53 PM Note Text: Nursing Progress Note Patient Name: Maxx Knott Patient Location: [place] [address] [address]* This patient was reported missing from his room in [facility]. We attempted to locate the patient within the hospital with no luck. Patient is believed to still have his Peripheral IV in. I attempted to call his phone number 3 times with no answer. I could not leave a message due to voicemail being full. [place] police have been contacted to do a wellness visit to check on the patient. This note was completed by: Sandra Szymanski RN NURSING PROG Observed: 07/25/2017 Status: COMPLETED Source: [place] 2:46 PM [facility] REPOSITORY HNO ID: [id number] Author: Acacia KingRn) MITCHELL Ragland Service: Nursing Author Type: Registered Nurse Type: Nursing Progress Note Filed: 07/25/2017 2:55 PM Note Text: Nursing Progress Note Patient Name: Maxx Knott Patient Location: [place] [address] [address]* Pt repeated asked about discharge, nurse stated [...] AMA. CNDS Observed: 07/25/2017 Status: COMPLETED Source: [place] 2:46 PM [facility] REPOSITORY HNO ID: [id number] Author: Ratna Chavez Service: Hospital Medicine Author [...] July 29, 2017 TIME: 11:11 PM PAGER: [phone] CONSULT Observed: 07/25/2017 Status: COMPLETED Source: [place] 10:27 AM [facility] REPOSITORY HNO ID: [id number] Author: Bijan Benavides Service: Gastroenterology Author Type: [...] to follow up with [facility] clinic at [facility], but has not done so. 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 - Peritonitis ([facility]) PAST SURGICAL HISTORY Procedure Laterality [...] PRN Ratna Chavez 4 mg at 07/25/17 0910 enoxaparin 40 mg injection (LOVENOX) 40 mg SUBCUTANEOUS q 24 HR Patricia Padron MD 40 mg at 07/25/17 0624 metoprolol succinate ER 200 mg tab(s) (TOPROL XL) 200 mg ORAL DAILY Gene Keyes Kym 200 mg at 07/25/17927 iv contrast [...] DAILY Nithya Thayer MD 81 mg at 07/25/17927 cyclobenzaprine 10 mg tab(s) (FLEXERIL) 10 mg ORAL AT BEDTIME Nithya Thayer MD 10 mg at 07/24/172129 isosorbide mononitrate ER 60 mg tab(s) (IMDUR) 60 mg ORAL DAILY Nithya Thayer MD 60 mg at 07/25/17927 nitroglycerin sublingual 0.4 mg tab(s) (NITROQUICK) 0.4 mg SUBLINGUAL q 15 MIN PRN Nithya Tahyer MD amLODIPine 10 mg tab(s) (NORVASC) 10 mg ORAL DAILY Nithya Thayer MD 10 mg at 07/25/17927 0.9% NaCl 3-5 mL 3-5 mL INTRAVENOUS [...] Myalgia - Hctz [Amiloride-Hyd* Swelling - Other Lake-3s Unknown brelinta - Ramipril Swelling - Simvastatin [...] (U/L) Date Value 07/21/2017 18 URINLAYSIS Specific [place], Ur Date Value Ref Range Status 07/21/2017 [...] this time per surgery -follow up at [facility] clinic at [facility] Signed, Mary Clifton MS4 July 25, 2017 10:59 AM I [...] (which is supposed to be scheduled at [facility] before he has reversal of his colostomy and sigmoid resection). I told pt that if he gets any more black stool as outpatient then he needs to come back to ED. I discussed all of the above with Sound Attending (Dr. Palmer) as well. Bijan Benavides MD July 25, 2017 1:05 PM PROGRESS Observed: 07/25/2017 Status: COMPLETED Source: [place] 9:39 AM CLINIC OTHER CAMP[facility] REPOSITORY HNO ID: [id number] Author: Verenice KingRn) MITCHELL Finn Service: Wound/Ostomy Author Type: Registered Nurse Type: Progress Notes Filed: 07/25/2017 9:42 AM Note Text: WOUND CARE NURSE PROGRESS NOTE SERVICE DATE: 07/25/2017 SERVICE TIME: 819 REASON FOR VISIT: Ostomy TIME SPENT (minutes): 45 Documentation from Wound Expert can be found in scanned documents. Patient seen today by supervisor policy change clerks. Pouch changed today. Stoma pink, moist draining brown/black semi-soft stool. Stoma prolapsed/protruding. Ostomy Supplies at the bedside. Bedside RN at the bedside, aware of pouch application. supervisor policy change clerks to follow. SIGNATURE: Verenice Finn RN PATIENT NAME: Maxx Knott DATE: July 25, 2017 TIME: 9:39 AM CONTACT#: [id number] HEMOGRAM/DIFF Collected: 07/25/2017 Status: F Source: [facility] 2:53 AM [facility] REPOSITORY TYPE CODE [...] 2.30 LAB MONON(LOIN 0.30-0.82 thou/cmm C) Abs. Wirt 0.63 LAB EOSN(LOINC 0.04-0.54 thou/cmm ) Abs. Eosin 0.41 LAB BASON(LOIN 0.01-0.08 thou/cmm C) Abs. Baso 0.04 Performed By: #### CBCD1 #### [place] [address] BASIC PANEL Collected: 07/25/2017 Status: F Source: [facility] 2:53 AM [facility] SYSTEM REPOSITORY TYPE CODE [...] Gap 9 Performed By: #### P8 #### [place] [address] MAGNESIUM BLOOD Collected: 07/25/2017 Status: F Source: [facility] 2:53 AM [facility] REPOSITORY TYPE CODE TESTS RESULT OUT OF REFERENCE UNITS RANGE LAB MAG(LOINC) 1.6-2.6 mg/dL Magnesium Blood 2.1 Performed By: #### MAG #### [place] [address] PHOSPHORUS BLOOD Collected: 07/25/2017 Status: F Source: [facility] 2:53 AM [facility] SYSTEM REPOSITORY TYPE CODE TESTS RESULT OUT OF REFERENCE UNITS RANGE LAB PHOS(LOINC 2.5-4.9 mg/dL ) Phosphorus Blood 3.3 Performed By: #### PHOS #### [facility] [address] [place] [id number] MDRD GFR Collected: 07/25/2017 Status: F Source: [facility] 2:53 AM [facility] REPOSITORY TYPE CODE TESTS RESULT OUT OF RANGE REFERENCE UNITS LAB GFRFN(LOINC >60mL/min/1.73m ) 2 eGFR >60 Result Comment: If the patient is , multiply the result by 1.210. Performed By: #### GFR #### [facility] [address] [place], [place] [address] PROGRESS Observed: 07/24/2017 Status: COMPLETED Source: [place] 7:16 PM [facility]IN[facility] OTHER [facility] REPOSITORY HNO ID: [id number] Author: Ratna Chavez Service: Hospital Medicine Author Type: Physician Type: Progress Notes Filed: 07/24/2017 7:18 PM Note Text: DEPARTMENT OF HOSPITAL MEDICINE [facility] PROGRESS NOTE- HOSPITAL DAY 1 SERVICE [...] Full PLANNED DISPOSITION: Home and Home with [facility] ? Plan of care discussed with: Patient and RN I spent 30 minutes in the visit, including chart review and discussion with other care providers, with more than 50% of the total sgmq-wa-dldv time of the visit in counseling / [...] AND WEEKEND COVERAGE: After 7pm please page [phone] FECAL OCCULT BLOOD Collected: 07/24/2017 Status: F Source: [facility] 4:24 PM [facility]ALTH SYSTEM REPOSITORY TYPE CODE TESTS RESULT OUT OF RANGE REFERENCE UNITS LAB OCCU2(LOIN NEGATIVE C) Abnormal Fecal POSITIVE Occult Blood Performed By: #### OCCU2 #### [place] [address] ALLIED HEALTH Observed: 07/24/2017 Status: COMPLETED Source: [place] 4:20 PM [facility] [place] REPOSITORY HNO ID: [id number] Author: Paulette Muller Office Coord Service: (none) Author Type: (none) Type: Allied Health Filed: 07/24/2017 4:20 PM Note Text: MULTIMEDIA MANAGER NOTE SERVICE DATE: 07/24/2017 SERVICE TIME: 1620 Referral: Home Care referral received by: CM Will continue to follow for physician orders SIGNATURE: Paulette Muller Office Coord PATIENT NAME: Maxx Knott DATE: July 24, 2017 TIME: 4:20 PM CASE MGT INIT Observed: 07/24/2017 Status: COMPLETED Source: [facility] 3:08 PM CLINIC OTHER [facility]AMP[facility] REPOSITORY HNO ID: [id number] Author: Louisa KingRn) MITCHELL Guillory Service: Care Management Author Type: Registered Nurse Type: Care Mgt Initial Assessment Filed: 07/24/2017 3:13 PM Note Text: CARE MANAGEMENT: ASSESSMENT AND DISCHARGE PLAN SERVICE DATE: 07/24/2017 SERVICE TIME: 1508 PRIMARY CARE PHYSICIAN: Bijan Perez MD ADMISSION STATUS: Inpatient Needs Prior to Discharge: Home Care Order 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 No SOCIAL: Living Arrangement: Home Lives With: brother Financial Resources: Disabled Primary Contact: Extended Emergency Contact Information Primary Emergency Contact: Mary Knott Address: [address] [place] [address] Mobile Relation: Brother Supportive: Yes Other Important [...] 0 I feel financially burdened by my pyk-qp-sgpqfp expenses for my prescription medication: Disagree mostly [...] Home Care Pt planning on home at [place]. Would like some hhc at [place] to help with his ostomy care as he has a hard time changing the pouch. Will task hhc, plan is home at [place] no new needs. SIGNATURE: Louisa Guillory RN PATIENT NAME: Maxx Knott DATE: July 24, 2017 TIME: 3:08 PM PAGER/CONTACT #: [phone] NURSING PROG Observed: 07/24/2017 Status: COMPLETED Source: [place] 1:47 PM CLINIC OTHER [facility]AMPUS REPOSITORY HNO ID: [id number] Author: Judy (Rn) MITCHELL Martinez Service: Nursing Author Type: Registered Nurse Type: Nursing Progress Note Filed: 07/24/2017 1:48 PM Note Text: Patient states his BM color is different then it's ever been before. Noted dark, almost black stool. Paged Dr. Chavez to notify of patient's concerns. HEMOGRAM/DIFF Collected: 07/24/2017 Status: F Source: [facility] 4:15 AM [facility]ALTH SYSTEM REPOSITORY TYPE CODE [...] 2.30 LAB MONON(LOIN 0.30-0.82 thou/cmm C) Abs. Wirt 0.59 LAB EOSN(LOINC 0.04-0.54 thou/cmm ) Abs. Eosin 0.38 LAB BASON(LOIN 0.01-0.08 thou/cmm C) Abs. Baso 0.03 Performed By: #### CBCD1 #### [place] [address] BASIC PANEL Collected: 07/24/2017 Status: F Source: [facility] 4:15 AM [facility]ALTH SYSTEM REPOSITORY TYPE CODE [...] Gap 8 Performed By: #### P8 #### [facility] [address] [place] [address] MAGNESIUM BLOOD Collected: 07/24/2017 Status: F Source: [facility] 4:15 AM [facility]ALTH SYSTEM REPOSITORY TYPE CODE TESTS RESULT OUT OF REFERENCE UNITS RANGE LAB MAG(LOINC) 1.6-2.6 mg/dL Magnesium Blood 1.9 Performed By: #### MAG #### [facility] [address] [place] [address] PHOSPHORUS BLOOD Collected: 07/24/2017 Status: F Source: [facility] 4:15 AM [facility] SYSTEM REPOSITORY TYPE CODE TESTS RESULT OUT OF REFERENCE UNITS RANGE LAB PHOS(LOINC 2.5-4.9 mg/dL ) Phosphorus Blood 3.0 Performed By: #### PHOS #### [place] [address] MDRD GFR Collected: 07/24/2017 Status: F Source: [facility] 4:15 AM [facility] SYSTEM REPOSITORY TYPE CODE TESTS RESULT OUT OF RANGE REFERENCE UNITS LAB GFRFN(LOINC >60mL/min/1.73m ) 2 eGFR >60 Result Comment: If the patient is , multiply the result by 1.210. Performed By: #### GFR #### [place] [address] PROGRESS Observed: 07/23/2017 Status: COMPLETED Source: [place] 7:37 PM CLINIC OTHER CAMPUS REPOSITORY O ID: [id number] Author: Ratna Chavez Service: Hospital Medicine Author Type: Physician Type: Progress Notes Filed: 07/24/2017 6:24 PM Note Text: DEPARTMENT OF HOSPITAL MEDICINE [facility] PROGRESS NOTE- HOSPITAL DAY 0 SERVICE [...] ?F), Max:36.8 ?C (98.2 ?F) Pain Score: 11/06 (07/23/17 4558) CHIEF COMPLAINT: <principal problem not specified> OVERNIGHT [...] Full PLANNED DISPOSITION: Home and Home with [facility] Plan of care discussed with: Patient and RN I spent 30 minutes in the visit, including chart review and discussion with other care providers, with more than 50% of the total drnv-tz-hcqw time of the visit in counseling / [...] AND WEEKEND COVERAGE: After 7pm please page [phone] US KIDNEY COMPLETE Observed: 07/23/2017 Status: F Source: [facility] 4:32 PM HEALTH SYSTEM REPOSITORY Performed at [facility] APPROVED BY: Chino Chan [...] identified. CONSULT Observed: 07/23/2017 Status: COMPLETED Source: [place] 9:44 AM [facility] [place] REPOSITORY HNO ID: [id number] Author: Verenice KingRn) MITCHELL Finn Service: Wound/Ostomy Author Type: Registered Nurse Type: Consults Filed: 07/23/2017 9:52 AM Note Text: WOUND CARE NURSE CONSULT NOTE SERVICE DATE: 07/23/2017 SERVICE TIME: 944 REASON FOR VISIT: Ostomy TIME SPENT (minutes): 30 Documentation from Wound Expert can be found in scanned documents. supervisor policy change clerks consulted to see patient. Patient stated that he fell at home onto his abdomen. Stoma pink, moist, no blood, draining brown semi- soft stool. Surgery assessed patient on 07/22/17. Patient states he changes entire pouch every 7 days, user experience researcher instructed patient to change pouch every 3-4 days. Patient's ostomy belt was very tight, instructed patient to loosen belt to reduce the risk of trauma to the stoma or peristomal skin. Patient has minimal supplies at the bedside. [place] 4 1/3 with a window left at the bedside along with stoma paste and skin prep. Patient given information of re-ordering ostomy supplies for home use. Instructed bedside RN about the patient's supplies, Bedside RN verbalized understanding. supervisor policy change clerks to follow. SIGNATURE: Verenice Finn RN PATIENT NAME: Maxx Knott DATE: July 23, 2017 TIME: 9:45 AM CONTACT#: [id number] NURSING PROG Observed: 07/23/2017 Status: COMPLETED Source: [place] 8:47 AM [facility] REPOSITORY HNO ID: [id number] Author: Judy KingRn) MITCHELL Martinez Service: Nursing Author Type: Registered Nurse Type: Nursing Progress Note Filed: 07/23/2017 8:55 AM Note Text: RN spoke with Dr. Chavez concerning patients' code status on Epic vs. Inpatient note by Dr. Thayer stating patient was DNRCCA. PROGRESS Observed: 07/23/2017 Status: COMPLETED Source: [place] 5:20 AM CLINIC OTHER CAMPUS REPOSITORY O ID: [id number] Author: Patricia Padron MD Service: Hospital Medicine [...] MD HEMOGRAM/DIFF Collected: 07/23/2017 Status: F Source: [facility] 2:42 AM HEALTH SYSTEM REPOSITORY TYPE CODE [...] 2.53 LAB MONON(LOIN 0.30-0.82 thou/cmm C) Abs. Wirt 0.66 LAB EOSN(LOINC 0.04-0.54 thou/cmm ) Abs. Eosin 0.31 LAB BASON(LOIN 0.01-0.08 thou/cmm C) Abs. Baso 0.04 Performed By: #### CBCD1 #### [facility] [address] [place] [id number] BASIC PANEL Collected: 07/23/2017 Status: F Source: [facility] 2:42 AM HEALTH SYSTEM REPOSITORY TYPE CODE [...] Gap 6 Performed By: #### P8 #### [facility] [address] [place] [address] MAGNESIUM BLOOD Collected: 07/23/2017 Status: F Source: [facility] 2:42 AM HEALTH SYSTEM REPOSITORY TYPE CODE TESTS RESULT OUT OF REFERENCE UNITS RANGE LAB MAG(LOINC) 1.6-2.6 mg/dL Magnesium Blood 2.1 Performed By: #### MAG #### [place] [address] PHOSPHORUS BLOOD Collected: 07/23/2017 Status: F Source: [facility] 2:42 AM HEALTH SYSTEM REPOSITORY TYPE CODE TESTS RESULT OUT OF REFERENCE UNITS RANGE LAB PHOS(LOINC 2.5-4.9 mg/dL ) Phosphorus Blood 3.0 Performed By: #### PHOS #### [place] [address] MDRD GFR Collected: 07/23/2017 Status: F Source: [facility] 2:42 AM HEALTH SYSTEM REPOSITORY TYPE CODE TESTS RESULT OUT OF RANGE REFERENCE UNITS LAB GFRFN(LOINC >60mL/min/1.73m ) 2 eGFR 59.42 Result Comment: If the patient is , multiply the result by 1.210. Performed By: #### GFR #### [place] [address] CONSULT Observed: 07/22/2017 Status: COMPLETED Source: [place] 9:02 PM CLINIC OTHER CAMPUS REPOSITORY HNO ID: [id number] Author: Isaias Tyson Service: General Surgery Author Type: Resident Type: Consults Filed: 07/23/2017 3:39 AM Note Text: Attestation signed by Johnny Camargo at 07/23/2017 11:45 AM I agree with the above evaluation by the resident. Johnny Camargo MD, FACS, [facility] GENERAL SURGERY CONSULT SERVICE DATE: 07/22/2017 SERVICE [...] is also known to [facility] service at [facility] and has failed to follow up with their clinic for elective surgical planning. + AP, CP, SOB, N Denies fever, chills, V, D, C, Dysuria, Hematuria, Melena, Hematochezia FUNCTIONAL STATUS: Independent PAST MEDICAL HISTORY Diagnosis Date - AAA (abdominal aortic aneurysm) without rupture ([facility]) 05/13/[address] a/p - CAD (coronary artery disease) 2005 CAD s/p CABG x3 (RRPM-FJI-mxrpzj, MTX-CTV-eazmpi, CRG-FX6-spzkuotb) (2006 at [place]) - Current every day smoker PT SMOKES A PIPE - Diverticulitis Perforated Diverticulitis - Diverticulitis of sigmoid colon 05/15/2017 Added automatically from request for surgery [id number] - Pacemaker 02/16/2017 s/p PPM () placed [...] Myalgia - Hctz [Amiloride-Hyd* Swelling - Other Lake-3s Unknown brelinta - Ramipril Swelling - Simvastatin [...] to follow up with [facility] clinic at [facility] - will follow peripherally, call with questions - dispo per primary and Cardiology D/W Dr. Camargo SIGNATURE: Isaias Tyson MD PATIENT NAME: Maxx Knott DATE: July 22, 2017 TIME: 9:02 PM PAGER/CONTACT #: [phone] HEMOGRAM/DIFF Collected: 07/22/2017 Status: F Source: [facility] 10:25 AM HEALTH SYSTEM REPOSITORY TYPE CODE [...] 2.29 LAB MONON(LOIN 0.30-0.82 thou/cmm C) Abs. Wirt 0.67 LAB EOSN(LOINC 0.04-0.54 thou/cmm ) Abs. Eosin 0.23 LAB BASON(LOIN 0.01-0.08 thou/cmm C) Abs. Baso 0.04 Performed By: #### CBCD1 #### [place] [address] BASIC PANEL Collected: 07/22/2017 Status: F Source: [facility] 10:25 AM HEALTH SYSTEM REPOSITORY TYPE CODE [...] Gap 10 Performed By: #### P8 #### [place] [address] MAGNESIUM BLOOD Collected: 07/22/2017 Status: F Source: [facility] 10:25 AM HEALTH SYSTEM REPOSITORY TYPE CODE TESTS RESULT OUT OF REFERENCE UNITS RANGE LAB MAG(LOINC) 1.6-2.6 mg/dL Magnesium Blood 2.1 Performed By: #### MAG #### [place] [address] PHOSPHORUS BLOOD Collected: 07/22/2017 Status: F Source: [facility] 10:25 AM HEALTH SYSTEM REPOSITORY TYPE CODE TESTS RESULT OUT OF REFERENCE UNITS RANGE LAB PHOS(LOINC 2.5-4.9 mg/dL ) Phosphorus Blood 2.8 Performed By: #### PHOS #### [place] [address] MDRD GFR Collected: 07/22/2017 Status: F Source: [facility] 10:25 AM HEALTH SYSTEM REPOSITORY TYPE CODE TESTS RESULT OUT OF RANGE REFERENCE UNITS LAB GFRFN(LOINC >60mL/min/1.73m ) 2 eGFR >60 Result Comment: If the patient is , multiply the result by 1.210. Performed By: #### GFR #### [facility] [address] [place], [place] [address] TROPONIN I Collected: 07/22/2017 Status: F Source: [facility] 10:25 AM HEALTH SYSTEM REPOSITORY TYPE CODE TESTS RESULT OUT OF REFERENCE UNITS RANGE LAB TROP(LOINC) 0.015-0.045 ng/ml Troponin I 0.017 Performed By: #### TROP #### [facility] [address] [place], [place] [address] HISTORY PHYSICAL Observed: 07/22/2017 Status: COMPLETED Source: [place] 9:25 AM CLINIC OTHER CAMPUS REPOSITORY O ID: [id number] Author: Gene Mejía Service: Clinical Cardiology Author Type: Physician Type: HANDP Filed: 07/22/2017 9:44 AM Note Text: CARDIOLOGY CONSULT NOTE SERVICE DATE: 07/22/2017 SERVICE TIME: 9:25 AM CONSULTING PHYSICIAN: Gene Mejía MD PCP: Bijan Perez MD ATTENDING: Aisha Moreland REASON FOR CONSULT: Chest Pain CHIEF COMPLAINT: Abdominal pain, unspecified abdominal location [R10.9] HPI:Cardiac consultation at the request of . Mr. Knott is a 67 year old male who is seen today for chest pain. He has a history of Elevated Blood Pressure, coronary artery disease, SP CABG X 3 (RHODES-LAD, SVG- RCA, OM3) around 2001 at the [facility]. A repeat cardiac cath in 2005 showed that the SVG- OM3 was occluded, but the other two grafts were patent. He was admitted to [facility] with chief complaints of [...] also had a cardiac cath by Dr Ricardo Morel at in 02/13, which revealed non occlusive CAD. No comments were made about the bypass grafts. His charts did mention occlusion of the SVG-OM3 as described above, based on a LHC from 2005 at [place]. 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 - Peritonitis ([facility]) PAST SURGICAL HISTORY Procedure Laterality [...] Myalgia - Hctz [Amiloride-Hyd* Swelling - Other Lake-3s Unknown brelinta - Ramipril Swelling - Simvastatin [...] 22, 2017 TIME: 9:25 AM PAGER/CONTACT #: [phone] TROPONIN I Collected: 07/22/2017 Status: F Source: [facility] 12:15 AM HEALTH SYSTEM REPOSITORY TYPE CODE TESTS RESULT OUT OF REFERENCE UNITS RANGE LAB TROP(LOINC) 0.015-0.045 ng/ml Troponin I 0.023 Performed By: #### TROP #### [place] [address] HISTORY PHYSICAL Observed: 07/21/2017 Status: COMPLETED Source: [place] 11:32 PM CLINIC OTHER CAMPUS REPOSITORY HNO ID: [id number] Author: Nithya Thayer MD Service: Hospital Medicine Author Type: Physician Type: HANDP Filed: 07/22/2017 12:00 AM Note Text: DEPARTMENT OF HOSPITAL MEDICINE HISTORY AND PHYSICAL EXAM SERVICE DATE: 07/21/2017 SERVICE TIME: 11.00pm Primary Care Physician: Bijan Perez MD NIGHT AND WEEKEND COVERAGE: Days: [phone], please page me for patient issues. Nights: [phone], please page [facility] Hospitalist Night coverage pager [phone] Subjective CHIEF COMPLAINT: Chest pain HPI: This [...] artery disease) 2005 CAD s/p CABG x3 (VCTZ-FJR-lfhzed, UFO-PBN-wcmbiu, OXU-MR1-hphycces) (2006 at [place]) - Current every day smoker PT SMOKES A PIPE - Diverticulitis Perforated Diverticulitis - Diverticulitis of sigmoid colon 05/15/2017 Added automatically from request for surgery [id number] - Pacemaker 02/16/2017 s/p PPM ([facility]) placed [...] Myalgia - Hctz [Amiloride-Hyd* Swelling - Other Lake-3s Unknown brelinta - Ramipril Swelling - Simvastatin [...] Drains, and Airways Line Peripheral Double Lumen 07/21/17 1400 Left Antecubital 20 Gauge less than [...] TIME: 11:32 PM PAGER/CONTACT #: [phone] [phone] ED NOTE Observed: 07/21/2017 Status: COMPLETED Source: [place] 7:46 PM CLINIC OTHER CAMPUS REPOSITORY HNO ID: [id number] Author: Yue Toth) MITCHELL Gaspar Service: Emergency Medicine Author Type: Registered Nurse Type: ED Notes Filed: 07/21/2017 7:47 PM Note Text: Pt requesting pain medications. Dr Rizvi aware [facility] TROPONIN I Collected: 07/21/2017 Status: F Source: [facility] 7:35 PM HEALTH SYSTEM REPOSITORY TYPE CODE TESTS RESULT OUT OF REFERENCE UNITS RANGE LAB ERTRP(LOINC 0.015-0.045 ng/ml ) [facility] Troponin I 0.028 Performed By: #### ERTRP #### [facility] [address] [place] [address] CHEST 2 VIEWS Observed: 07/21/2017 Status: F Source: [facility] 5:59 PM HEALTH SYSTEM REPOSITORY Performed at [facility] APPROVED BY: Bubba Hemphill [...] AND PELVIS Observed: 07/21/2017 Status: F Source: [facility] WITH CONTRAST 5:59 PM HEALTH SYSTEM REPOSITORY Performed at [facility] APPROVED BY: Cherise Cedeño [...] ED NOTE Observed: 07/21/2017 Status: COMPLETED Source: [place] 4:49 PM CLINIC OTHER CAMPUS REPOSITORY HNO ID: [id number] Author: Yue KingRn) Hubert RN Service: Emergency Medicine Author Type: Registered Nurse Type: ED Notes Filed: 07/21/2017 4:49 PM Note Text: Transport aware of CT and CXR; ticket to ride filled out ED NOTE Observed: 07/21/2017 Status: COMPLETED Source: [place] 4:43 PM [facility] REPOSITORY HNO ID: [id number] Author: Yue KingRn) Hubert RN Service: Emergency Medicine Author Type: Registered Nurse Type: ED Notes Filed: 07/21/2017 4:43 PM Note Text: Stoma reduced by Dr Rizvi and Dr Zheng. Site cleaned with normal saline and bag reapplied. ED NOTE Observed: 07/21/2017 Status: COMPLETED Source: [place] 4:08 PM [facility] REPOSITORY HNO ID: [id number] Author: Yue KingRn) Hubert, RN Service: Emergency Medicine Author Type: Registered Nurse Type: ED Notes Filed: 07/21/2017 4:09 PM Note Text: Sugar and Lidocaine at bedside per order. 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 Coronary artery disease involving klawock coronary artery of klawock heart, angina presence unspecified I25.10 4. Essential [...] Positive reducible ostomy. No peritoneal sign. No guy-bevjlzcu-gicbvdowCf kaley.No phocomelia. No myonecrosis. No endocine goiter No generalized purpura. No FND. No lock-in syndrome paralysis. No cataplexy. Dx- [place] asa-ntg decreased his cp. ekg No stemi HS-6. Patient's PCP moved out of state. Patient is not able to see his communication specialist for weeks. Patient is stable and was admitted then care of the patient was transferred to the inpatient team. Plan The Patient was AD[facility]. Condition at time of disposition: stable SIGNATURE: DO Jay Marshall ( DO Dmitri Resident 07/23/17 4708 Ratna Hay MD 07/27/17 1032 HEMOGRAM/DIFF Collected: 07/21/2017 Status: F Source: [facility] 3:35 PM HEALTH SYSTEM REPOSITORY TYPE CODE [...] 1.67 LAB MONON(LOIN 0.30-0.82 thou/cmm C) Abs. Wirt 0.73 LAB EOSN(LOINC 0.04-0.54 thou/cmm ) Abs. Eosin 0.05 LAB BASON(LOIN 0.01-0.08 thou/cmm C) Abs. Baso 0.03 Performed By: #### CBCD1 #### [place] [address] PROTIME Collected: 07/21/2017 Status: F Source: [facility] [address] SYSTEM REPOSITORY TYPE CODE TESTS RESULT OUT OF REFERENCE UNITS RANGE LAB PTI(LOINC) 9.3-11.9 sec Prothrombin Time 11.2 LAB INR(LOINC) INR 1.07 Result Comment: Standard Therapy 2.0-3.0 High Dose 2.5-3.5 Performed By: #### PT #### [place] [address] [facility] TROPONIN I Collected: 07/21/2017 Status: F Source: [facility] [address] SYSTEM REPOSITORY TYPE CODE TESTS RESULT OUT OF REFERENCE UNITS RANGE LAB ERTRP(LOINC 0.015-0.045 ng/ml ) [facility] Troponin I 0.020 Performed By: #### ERTRP #### [place] [address] LACTIC ACID Collected: 07/21/2017 Status: F Source: [facility] 3:35 PM HEALTH SYSTEM REPOSITORY TYPE CODE TESTS RESULT OUT OF REFERENCE UNITS RANGE LAB LAC(LOINC) 0.4-2.0 mEq/L Lactic Acid 1.4 Performed By: #### LAC #### [facility] [address] [place] [address] COMPREHENSIVE PANEL Collected: 07/21/2017 Status: F Source: [facility] 3:35 PM HEALTH SYSTEM REPOSITORY TYPE CODE [...] Gap 10 Performed By: #### P14 #### [place] [address] MDRD GFR Collected: 07/21/2017 Status: F Source: [facility] 3:35 PM HEALTH SYSTEM REPOSITORY TYPE CODE TESTS RESULT OUT OF RANGE REFERENCE UNITS LAB GFRFN(LOINC >60mL/min/1.73m ) 2 eGFR >60 Result Comment: If the patient is , multiply the result by 1.210. Performed By: #### GFR #### [place] [address] URINALYSIS ROUTINE Collected: 07/21/2017 Status: F Source: [facility] 3:15 PM HEALTH SYSTEM REPOSITORY TYPE CODE [...] Urine NEGATIVE LAB SPG(LOINC) 1.005-1.030 Specific 1.018 [place], Ur LAB PHUR(LOINC 5.0-8.0 ) pH,Urine 6.5 [...] 0.0 Performed By: #### URIN2 #### [facility] [address] [address] ED NOTE Observed: 07/21/2017 Status: COMPLETED Source: [place] 2:51 PM CLINIC OTHER CAMPUS REPOSITORY HNO ID: [id number] Author: Herlinda KingRn) MITCHELL Del Real Service: (none) Author Type: Registered Nurse Type: ED Notes Filed: 07/21/2017 2:51 PM Note Text: Bed: ED-04 Expected date: Expected time: Means of arrival: Comments: triage ED NOTE Observed: 07/21/2017 Status: COMPLETED Source: [place] 2:39 PM CLINIC OTHER CAMPUS REPOSITORY HNO ID: [id number] Author: Carla KingRn) Tomcik, RN Service: Emergency Medicine Author Type: Registered [...] TRIAGE NOTE Observed: 07/21/2017 Status: COMPLETED Source: [place] 2:37 PM CLINIC OTHER CAMPUS REPOSITORY HNO ID: [id number] Author: Lenin Mancera) Danni Service: Emergency Medicine Author Type: Physician Title Insurance Examiner Type: ED Triage Notes Filed: 07/21/2017 2:40 [...] PROV NOTE Observed: 07/14/2017 Status: COMPLETED Source: [place] 11:12 PM CLINIC OTHER CAMPUS REPOSITORY HNO ID: [id number] Author: Mine Proctor MD Service: Emergency Medicine [...] artery disease) 2005 CAD s/p CABG x3 (KSJX-UEE-ywysim, FLP-TDX-artpme, VLO-MF2-maxjqmzf) (2006 at [place]) - Current every day smoker PT SMOKES A PIPE - Diverticulitis Perforated Diverticulitis - Diverticulitis of sigmoid colon 05/15/2017 Added automatically from request for surgery [id number] - Pacemaker 02/16/2017 s/p PPM () 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 - Peritonitis ([facility]) PAST SURGICAL HISTORY Procedure Laterality [...] Myalgia - Hctz [Amiloride-Hyd* Swelling - Other Lake-3s Unknown brelinta - Ramipril Swelling - Simvastatin [...] ED NOTE Observed: 07/14/2017 Status: COMPLETED Source: [place] 11:06 PM [facility] REPOSITORY HNO ID: [id number] Author: Alis Cervantes (Rn) MITCHELL Remy Service: Emergency Medicine Author Type: Registered Nurse Type: ED Notes Filed: 07/14/2017 11:12 PM Note Text: Pt states has home nurse appt scheduled on Sunday or Sunday ED NOTE Observed: 07/14/2017 Status: COMPLETED Source: [place] 10:38 PM [facility] REPOSITORY HNO ID: [id number] Author: Alis Cervantes (Rn) MITCHELL Remy Service: Emergency Medicine Author Type: [...] instructions. PROGRESS Observed: 07/10/2017 Status: COMPLETED Source: [place] 10:34 AM [facility] REPOSITORY HNO ID: [id number] Author: Parul Celeste (Pharmacist) Service: (none) Author Type: Pharmacist Type: Progress Notes Filed: 07/25/2017 4:05 PM Note Text: TRANSITION CARE MANAGEMENT (TCM) INITIAL CONTACT Provider Action/FYI: Patient does not have a follow up appointment with PCP scheduled. Patient may benefit from f/u visit. Will reach out to it support specialist to schedule appointment Unsure if patient is using Plavix with aspirin, no refill history noted in Reconcile Dispense Report. Please consider confirming at follow up appointment if visit is scheduled. Patient unable to be reached after two or more unsuccessful outreach attempts. No further attempts to contact patient will be made. SUMMARY: -Pt discharged from [facility] on 07/09/17. -Follow up appointment on No [...] history and was last seen by a communication specialist he thinks 3 months ago. Of note, he was scheduled for elective surgery on 06/21/[address] Rios Yoo for reversal of the Chad's. The patient was seen in the outpatient setting by Dr. Osuna from Cardiology who recommended delaying surgery due [...] artery disease) 2005 CAD s/p CABG x3 (ZHTU-XOX-pucgok, ZUP-TEF-kwfjpo, FNO-QQ3-adnvofwa) (2005 at [place]) - Current every day smoker PT SMOKES A PIPE - Diverticulitis Perforated Diverticulitis - Diverticulitis of sigmoid colon 05/15/2017 Added automatically from request for surgery [id number] - Pacemaker 02/16/2017 s/p PPM ([facility]) placed [...] Date: BP: 07/06/2017 171/61[rn spoke with surgery clinical education specialist about bp. clinical education specialist ok with discharge[ 06/25/2017 176/78[MD Odell ok for D/C[ 06/17/2017 145/63 eGFR (no units) Date Value 07/09/2017 >60 eGFR-All Other Races (.) Date Value 06/25/2017 >60 eGFR- (no units) Date Value 06/25/2017 >60 Estimated Creatinine Clearance: 72.2 mL/min (based on Cr of 1.1). ALLERGIES Allergen Reactions - Altaseptic Unknown - Crestor [Rosuvastat* Myalgia - Hctz [Amiloride-Hyd* Swelling - Other Lake-3s Unknown brelinta - Ramipril Swelling - Simvastatin Myalgia - Voltaren [Diclofena* Unknown Preferred pharmacy: [facility] [address] [place] [phone] - [address] [facility] - [phone] [place] [address] [address] [facility] [phone] Medication Reconciliation: Legend: Stopped, New, Changed, Added [...] to 7 days. New Rx- Filled at [facility] Discontinued: 07/09/2017 2:07 PM pravastatin (PRAVACHOL) 40 mg tablet Take 40 mg by mouth daily at bedtime. QUEtiapine (SEROQUEL) 200 mg tablet Take 2 tablets by mouth daily at bedtime. Filled 04/18/17 x 30 day Time spent on patient: 30-45 minutes Ra Dos Santos July 10, 2017 10:35 AM RUTH Observed: 07/10/2017 Status: COMPLETED Source: [place] 12:00 AM [facility] REPOSITORY Patient Outreach (PRISCILLA) MAXX KNOTT ([id number]) 1950 M Date Time Provider Department 07/10/17 CLIFFORD (PHARMACIST)PARUL During your visit today, we recorded the following information about you: Ra Dos Santos 07/25/2017 4:05 PM Signed TRANSITION CARE MANAGEMENT (TCM) INITIAL CONTACT Provider Action/FYI: Patient does not have a follow up appointment with PCP scheduled. Patient may benefit from f/u visit. Will reach out to it support specialist to schedule appointment Unsure if patient is using Plavix with aspirin, no refill history noted in Reconcile Dispense Report. Please consider confirming at follow up appointment if visit is scheduled. Patient unable to be reached after two or more unsuccessful outreach attempts. No further attempts to contact patient will be made. SUMMARY: -Pt discharged from [facility] on 07/09/17. -Follow up appointment on No [...] history and was last seen by a communication specialist he thinks 3 months ago. Of note, he was scheduled for elective surgery on 06/21/[address] Rios Yoo for reversal of the Chad's. The patient was seen in the outpatient setting by Dr. 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 clinical education specialist ok with discharge[ 06/25/2017 176/78[MD Odell ok for D/C[ 06/17/2017 145/63 eGFR (no units) Date Value 07/09/2017 ANDgt;60 eGFR-All Other Races (.) Date Value 06/25/2017 ANDgt;60 eGFR- (no units) Date Value 06/25/2017 ANDgt;60 Estimated Creatinine Clearance: 72.2 mL/min (based on Cr of 1.1). ALLERGIES Allergen Reactions - Altaseptic Unknown - Crestor [Rosuvastat* Myalgia - Hctz [Amiloride-Hyd* Swelling - Other Lake-3s Unknown brelinta - Ramipril Swelling - Simvastatin Myalgia - Voltaren [Diclofena* Unknown Preferred pharmacy: [facility] [address] [place] [phone] - [address] [facility] N - [phone] [facility]; [place] [address] [address] [facility] [address] Medication Reconciliation: Legend: Stopped, New, Changed, Added [...] to 7 days. New Rx- Filled at [facility] Discontinued: 07/09/2017 2:07 PM pravastatin (PRAVACHOL) 40 [...] OTHER OMEGA-3S 07/06/2017 16 - Unknown Comments: milana RAMIPRIL 12/17/2016 7 - Swelling SIMVASTATIN 12/17/2016 [...] Encounter Status:Closed by CLIFFORD (PHARMACIST)PARUL on 07/25/17 CNMARIS Observed: 07/09/2017 Status: COMPLETED Source: [place] 2:07 PM [facility] REPOSITORY HNO ID: [id number] Author: Brenna Crandall Service: General Surgery Author [...] history and was last seen by a communication specialist he thinks 3 months ago. Of note, he was scheduled for elective surgery on 06/21/[address] Rios Yoo for reversal of the Chad's. The patient was seen in the outpatient setting by Dr. Osuna from Cardiology who recommended delaying surgery due [...] medication (see prescription) You should use an wopd-ybu-kkldsxo stool softener (Docusate sodium) and/or a fiber supplement (Metamucil, Fiber Con) every day while taking prescribed pain medication Call Your Doctor If You have persistent nausea/vomiting over 24 hours Your temperature is greater than 101F Follow Up Appointments Follow-Up Appointment When: In 4 weeks Patient/Parents to call for appointment?: Yes Ro Yoo [phone] [address] [facility] [address] PCP Requested Referral Additional Provider to Provider Information: FOLLOW-UP APPOINTMENTS ALREADY SCHEDULED WITH A [facility] PROVIDER: No future appointments. DISCHARGE MEDICATION: Cipro [...] patient. SIGNATURE: Brenna Crandall CNP PAGER/CONTACT #: [phone] DATE: July 09, 2017 TIME: 2:07 PM CASE MANAGEM Observed: 07/09/2017 Status: COMPLETED Source: [place] 12:40 PM CLINIC OTHER CAMPUS REPOSITORY HNO ID: [id number] Author: Sobia KingRn) MITCHELL Chun Service: Care Management Author Type: Registered Nurse Type: Care Mgt Progress Note Filed: 07/09/2017 12:41 PM Note Text: CARE MANAGEMENT PROGRESS NOTE SERVICE DATE: 07/09/2017 SERVICE TIME: 12:41 PM LOS: 3 days From home with brother who will assist as needed at time of DC. 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 Hx of stoma with appliances and requests better fitting appliances; will request ostomy nurse referral. +CPAP and other DME in home. SIGNATURE: Sobia Chun RN PATIENT NAME: Maxx Knott DATE: July 09, 2017 TIME: 12:40 PM PAGER/CONTACT #:[phone] CASE MGT INIT Observed: 07/09/2017 Status: COMPLETED Source: [facility] 12:26 PM CLINIC OTHER CAMPUS REPOSITORY HNO ID: [id number] Author: Sobia (Rn) MITCHELL Chun Service: Care Management Author Type: Registered Nurse Type: Care Mgt Initial Assessment Filed: 07/09/2017 12:38 PM Note Text: CARE MANAGEMENT: ASSESSMENT AND DISCHARGE PLAN SERVICE DATE: 07/09/2017 SERVICE TIME: 12:27 PM PRIMARY CARE PHYSICIAN: DARIA; Adrienne Aparicio Currently sees whomever is available Phone: ADMISSION STATUS: Inpatient 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 No SOCIAL: Living Arrangement: Home Lives With: brother Financial Resources: Retired Primary Contact: Extended Emergency Contact Information Primary Emergency Contact: Mary Knott Address: [address] [place] [address] [facility] Mobile Relation: Brother Supportive: [...] 0 I feel financially burdened by my xmc-bu-pquuox expenses for my prescription medication: Agree completely - 2 Patient is categorized as medium risk score 2-7: The following interventions are being put into place - [facility] and that is why he has been going to [place] doctors. It is affordable that way. Are [...] 09, 2017 TIME: 12:27 PM PAGER/CONTACT #: [phone] PROGRESS Observed: 07/09/2017 Status: COMPLETED Source: [place] 8:55 AM CLINIC OTHER CAMPUS REPOSITORY HNO ID: [id number] Author: Gamal Stratton Service: (none) Author Type: [...] 2017 TIME: 8:55 AM PAGER/CONTACT #: GAMAL GILL MD, [facility], HOWIE BALES, PROGRESS Observed: 07/09/2017 Status: COMPLETED Source: [place] 6:22 AM CLINIC OTHER CAMPUS REPOSITORY O ID: [id number] Author: Tj Hawley Service: General Surgery Author [...] kg/m2 O2 Therapy: Room Air IANDO: Date 07/08/17699 - 07/09/17 0607/09/17699 - 07/10/17658 Shift 2442-2527 1814-0620 9437-5453 24 Hour Total 9112-2257 6562-7169 9629-7639 24 Hour Total I N T A K E PO 960 830 645 6953 PO 960 479 656 6332 IV 600 300 900 D5 LR 600 600 Cipro IV 200 200 Flagyl IV 100 100 Shift Total 1560 108 832 0617 O U T P U T Urine 800 689 848 1282 Void (ml) 800 874 876 6336 # of BMs Number of BMs 1 x 2 x 3 x Stool 300 300 Liquid BM (mL) 300 300 Shift Total 800 932 496 4004 Weight (kg) 90.7 90.7 90.7 90.7 90.7 [...] mg ORAL DAILY fluticasone 50 mcg/actuation 2 [place] (FLONASE) 2 [place] EACH NOSTRIL BID aspirin 81 mg chewable [...] Labs: Recent Labs 07/09/17 0400 07/08/17 0337 03/09/18 1608 NA 142 142 < > 136 [...] Problems Diagnosis Date Noted - 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 EF=47% 2017 - Hypertensive heart disease with congestive heart failure (HCC) 05/16/2017 Priority: K - Malnutrition of mild degree ([facility]) 04/03/2017 Priority: L - Diverticulitis 05/15/2017 Overview Note: Added automatically from request for surgery [id number] 66 year old male with Recurrent Sigmoid Diverticulitis and Prolapsing Parastomal Hernia ?? - Soft GI Diet - Cipro/Flagyl - pain control - Appreciate Cardiology recs, recent FL, cont ASA, ARB, BB, Imdur - Lexiscan today per Dr. Gamal Stratton --> no need for repeat stress test - Lovenox for DVT ppx - Nocturnal CPAP - No acute surgical intervention at this time - dispo planning --> possible discharge today or tomorrow SIGNATURE: Isaias Tyson MD PATIENT NAME: Maxx Knott DATE: July 09, 2017 TIME: 6:23 AM Pager: [phone] ========= GENERAL SURGERY STAFF: I have personally [...] Note: Added automatically from request for surgery [id number] - Colostomy prolapse ([facility]) 01/05/2017 Priority: Very Severe - Chronic systolic congestive heart failure ([facility]) 05/15/2017 Priority: J Overview Note: EF=47% April 2017 Added automatically from request for surgery [id number] - CAD (coronary artery disease) 05/16/2017 Priority: K Overview Note: Nuclear stress test >>No ischemia. EF=47% 2017 - Hypertensive heart disease with congestive heart failure ([facility]) 05/16/2017 Priority: K - Malnutrition of mild degree ([facility]) 04/03/2017 Priority: L Assessment and Plan: No plan for surgery at this time give recent ACS event in last 6 months. F/u as outpatient. Cardiology f/u appt as well Tj Hawley MD, FACS Section of Trauma, Surgery Critical Care, and Acute Care Surgery Pager: [phone] Office: [phone] July 09, 2017 ========= HEMOGRAM Collected: 07/09/2017 Status: F Source: [facility] 4:00 AM HEALTH SYSTEM REPOSITORY TYPE CODE [...] MPV 10.5 Performed By: #### CBC1 #### [place] [address] BASIC PANEL Collected: 07/09/2017 Status: F Source: [facility] 4:00 AM HEALTH SYSTEM REPOSITORY TYPE CODE [...] 10 Performed By: #### P8 #### [facility] [address] [place] [address] MAGNESIUM BLOOD Collected: 07/09/2017 Status: F Source: [facility] 4:00 AM HEALTH SYSTEM REPOSITORY TYPE CODE TESTS RESULT OUT OF REFERENCE UNITS RANGE LAB MAG(LOINC) 1.6-2.6 mg/dL Magnesium Blood 1.7 Performed By: #### MAG #### [facility] [address] [place] [address] PHOSPHORUS BLOOD Collected: 07/09/2017 Status: F Source: [facility] 4:00 AM HEALTH SYSTEM REPOSITORY TYPE CODE TESTS RESULT OUT OF REFERENCE UNITS RANGE LAB PHOS(LOINC 2.5-4.9 mg/dL ) Phosphorus Blood 2.8 Performed By: #### PHOS #### [facility] [address] [place] [address] MDRD GFR Collected: 07/09/2017 Status: F Source: [facility] 4:00 AM HEALTH SYSTEM REPOSITORY TYPE CODE TESTS RESULT OUT OF RANGE REFERENCE UNITS LAB GFRFN(LOINC >60mL/min/1.73m ) 2 eGFR >60 Result Comment: If the patient is , multiply the result by 1.210. Performed By: #### GFR #### [place] [address] PROGRESS Observed: 07/08/2017 Status: COMPLETED Source: [place] 10:13 AM CLINIC OTHER CAMPUS REPOSITORY O ID: [id number] Author: Sebastian Andino Service: (none) Author Type: Physician Type: Progress Notes Filed: 07/08/2017 10:20 AM Note Text: INPATIENT PROGRESS NOTE SERVICE DATE: 07/08/2017 SERVICE TIME: 08 Subjective Subjective: Symptoms: Stable. He reports anxiety. [...] mg ORAL DAILY fluticasone 50 mcg/actuation 2 [place] (FLONASE) 2 [place] EACH NOSTRIL BID aspirin 81 mg chewable [...] 2017>>>Stable Added automatically from request for surgery [id number] CAD (coronary artery disease) ...Nuclear stress test >>No ischemia. EF=47% 2017>>Stable Hypertensive heart disease with congestive heart failure (HCC)>>>Stable Malnutrition of mild degree (HCC) Diverticulitis Added automatically from request for surgery [id number]). Plan: Per physical therapy and out of [...] OK to proceed. ). SIGNATURE: Sebastian Andino MD,FACC,FASNC,CCDS;[facility] PATIENT NAME: Maxx Knott DATE: 07/08/2017 TIME: 10:20 AM PAGER: [phone] PROGRESS Observed: 07/08/2017 Status: COMPLETED Source: [place] 7:15 AM [facility] OTHER CAMPUS REPOSITORY O ID: [id number] Author: Isaias Peck) Jah Service: General Surgery Author Type: Resident [...] kg/m2 O2 Therapy: Room Air IANDO: Date 07/07/17699 - 07/08/1765807/08/17699 - 07/09/17 0659 Shift 3274-3498 2845-5495 7850-0789 24 Hour Total 3668-2314 5633-9559 4526-3855 24 Hour Total I N T A K E PO 600 274 788 4508 PO 600 797 132 2229 IV 300 300 Cipro IV 200 200 Flagyl IV 100 100 Shift Total 600 156 270 3494 O U T P U T Urine 400 672 573 8767 Void (ml) 400 300 658 9582 Shift Total 400 006 002 2838 Weight (kg) 90.7 90.7 90.7 90.7 90.7 [...] mg ORAL DAILY fluticasone 50 mcg/actuation 2 Vulcan (FLONASE) 2 Vulcan EACH NOSTRIL BID aspirin 81 mg chewable [...] Note: Added automatically from request for surgery [id number] 66 year old male with Diverticulitis and Prolapsing Parastomal Hernia ? - CLD - Cipro/Flagyl - pain control - Appreciate Cardiology recs, recent FL, cont ASA, ARB, BB, Imdur - Lexiscan tomorrow - Lovenox for DVT ppx - Nocturnal CPAP - hypokalemia- replacing orally - No acute surgical intervention SIGNATURE: Isaias Tyson MD PATIENT NAME: Maxx Knott DATE: July 08, 2017 TIME: 7:15 AM Pager: [phone] HEMOGRAM Collected: 07/08/2017 Status: F Source: [facility] 3:37 AM HEALTH SYSTEM REPOSITORY TYPE CODE [...] MPV 10.5 Performed By: #### CBC1 #### [place] [address] BASIC PANEL Collected: 07/08/2017 Status: F Source: [facility] 3:37 AM HEALTH SYSTEM REPOSITORY TYPE CODE [...] Gap 7 Performed By: #### P8 #### [place] [address] MAGNESIUM BLOOD Collected: 07/08/2017 Status: F Source: [facility] 3:37 AM HEALTH SYSTEM REPOSITORY TYPE CODE TESTS RESULT OUT OF REFERENCE UNITS RANGE LAB MAG(LOINC) 1.6-2.6 mg/dL Magnesium Blood 1.8 Performed By: #### MAG #### [place] [address] PHOSPHORUS BLOOD Collected: 07/08/2017 Status: F Source: [facility] 3:37 AM HEALTH SYSTEM REPOSITORY TYPE CODE TESTS RESULT OUT OF REFERENCE UNITS RANGE LAB PHOS(LOINC 2.5-4.9 mg/dL ) Phosphorus Blood 3.9 Performed By: #### PHOS #### [place] [address] MDRD GFR Collected: 07/08/2017 Status: F Source: [facility] 3:37 AM HEALTH SYSTEM REPOSITORY TYPE CODE TESTS RESULT OUT OF RANGE REFERENCE UNITS LAB GFRFN(LOINC >60mL/min/1.73m ) 2 eGFR >60 Result Comment: If the patient is , multiply the result by 1.210. Performed By: #### GFR #### [facility] [address] [place] [address] PROGRESS Observed: 07/07/2017 Status: COMPLETED Source: [place] 4:25 PM CLINIC OTHER [place] REPOSITORY HNO ID: [id number] Author: Isaias Tyson Service: General Surgery Author [...] NURSING PROG Observed: 07/07/2017 Status: COMPLETED Source: [place] 3:45 PM [facility] REPOSITORY HNO ID: [id number] Author: Jaxon Grimes RN Service: (none) Author Type: Registered Nurse Type: Nursing Progress Note Filed: 07/07/2017 4:20 PM Note Text: Nursing Progress Note Patient Name: Maxx Knott Patient Location: [place] [address]/[facility]0-510* Dr. Tyson at the bedside working on protruding colostomy. This note was completed by: Jaxon Grimes, RN NURSING PROG Observed: 07/07/2017 Status: COMPLETED Source: [place] 3:30 PM [facility] REPOSITORY HNO ID: [id number] Author: Jaxon Toth) MITCHELL Grimes Service: (none) Author Type: Registered Nurse Type: Nursing Progress Note Filed: 07/07/2017 4:18 PM Note Text: Nursing Progress Note Patient Name: Maxx Knott Patient Location: [id number]* Stoma protruding in the bag much more than earlier; Dr. Feliciano aware, will come up to evaluate pt shortly. This note was completed by: Jaxon Grimes RN PROGRESS Observed: 07/07/2017 Status: COMPLETED Source: [place] 6:27 AM CLINIC OTHER CAMPUS REPOSITORY HNO ID: [id number] Author: Isaias Tyson Service: General Surgery Author [...] Therapy: Continuous Positive Airway Pressure IANDO: Date 07/06/17699 - 07/07/1759 07/07/17699 - 07/08/17 0659 Shift 9597-0953 3910-2868 4793-9458 24 Hour Total 8245-8728 7639-3162 6849-4981 24 Hour Total I N T A K E Shift Total O U T P U T Urine 263 142 5145 Void (ml) 224 925 4157 Urine Not Saved 1 1 Shift Total 984 740 1601 Weight (kg) 90.7 90.7 90.7 90.7 90.7 90.7 90.7 90.7 MEDICATIONS Current Facility-Administered Medications: iv contrast (radiology procedure) INTRAVENOUS DIRECTED PRN losartan 100 mg tab(s) (COZAAR) 100 mg ORAL DAILY metoprolol succinate ER 100 mg tab(s) (TOPROL XL) 100 mg ORAL DAILY fluticasone 50 mcg/actuation 2 Vulcan (FLONASE) 2 Vulcan EACH NOSTRIL BID aspirin 81 mg chewable [...] Note: Added automatically from request for surgery [id number] 66 year old male with Diverticulitis and Prolapsing Parastomal Hernia - NPO/IVF - Cipro/Flagyl - pain control - Appreciate Cardiology recs, recent FL, cont ASA, ARB, BB, Imdur - Lovenox for DVT ppx - Nocturnal CPAP - hypophos - replacing SIGNATURE: Isaias Tyson MD PATIENT NAME: Maxx Knott DATE: July 07, 2017 TIME: 6:28 AM Pager: [phone] HEMOGRAM Collected: 07/07/2017 Status: F Source: [facility] 4:45 AM HEALTH SYSTEM REPOSITORY TYPE CODE [...] MPV 10.6 Performed By: #### CBC1 #### [facility] [address] [place], [place] [address] BASIC PANEL Collected: 07/07/2017 Status: F Source: [facility] 4:45 AM HEALTH SYSTEM REPOSITORY TYPE CODE [...] Gap 7 Performed By: #### P8 #### [place] [address] MAGNESIUM BLOOD Collected: 07/07/2017 Status: F Source: [facility] 4:45 AM HEALTH SYSTEM REPOSITORY TYPE CODE TESTS RESULT OUT OF REFERENCE UNITS RANGE LAB MAG(LOINC) 1.6-2.6 mg/dL Magnesium Blood 1.9 Performed By: #### MAG #### [place] [address] PHOSPHORUS BLOOD Collected: 07/07/2017 Status: F Source: [facility] 4:45 AM HEALTH SYSTEM REPOSITORY TYPE CODE TESTS RESULT OUT OF REFERENCE UNITS RANGE LAB PHOS(LOINC 2.5-4.9 mg/dL ) Phosphorus Blood 2.8 Performed By: #### PHOS #### [place] [address] MDRD GFR Collected: 07/07/2017 Status: F Source: [facility] 4:45 AM HEALTH SYSTEM REPOSITORY TYPE CODE TESTS RESULT OUT OF RANGE REFERENCE UNITS LAB GFRFN(LOINC >60mL/min/1.73m ) 2 eGFR >60 Result Comment: If the patient is , multiply the result by 1.210. Performed By: #### GFR #### [place] [address] ED PROV NOTE Observed: 07/07/2017 Status: COMPLETED Source: [place] 12:00 AM CLINIC OTHER CAMPUS REPOSITORY HNO ID: [id number] Author: Gamal Stratton Service: (none) Author Type: Physician Type: ED Provider Notes Filed: 08/07/2017 6:41 PM Note Text: [facility] - ER Admission - [place] PATIENT NAME: MAXX KNOTT [facility]: [id number] DATE OF : 1950 SEX/AGE: M/66 PATIENT TYPE: I HOSP [facility]: [facility] LOCATION: [id number] DATE OF SERVICE: 07/07/2017 REASON FOR CONSULT: [...] history of cardiac disease. He had an FL at age of 49 and 53. He [...] taking it recently. Gamal Stratton MD Cardiology TS:modl /[id number] ED PROV NOTE Observed: 07/07/2017 Status: COMPLETED Source: [place] 12:00 AM [facility] REPOSITORY HNO ID: [id number] Author: Gamal Stratton Service: (none) Author Type: Physician Type: ED Provider Notes Filed: 08/07/2017 6:41 PM Note Text: [facility] - ER Admission - [place] PATIENT NAME: MAXX KNOTT CSN: [id number] DATE OF : 1950 SEX/AGE: M/66 PATIENT TYPE: I HOSP [facility]: [facility] LOCATION: [facility] DATE OF SERVICE: 07/07/2017 HISTORY: Mr. Knott is a 66-year-old male. DICTATION ENDS HERE Gamal Stratton MD Cardiology TS:modl /[id number] ED PROV NOTE Observed: 07/06/2017 Status: COMPLETED Source: [place] 10:10 PM [facility] REPOSITORY HNO ID: [id number] Author: Aneudy Prakash MD Service: Emergency Medicine [...] artery disease) 2005 CAD s/p CABG x3 (ALLU-CKT-zetart, WJE-OXA-jmxygz, ZHL-HM5-txzmvzwe) (2005 at [place]) - Current every day smoker PT SMOKES A PIPE - Diverticulitis Perforated Diverticulitis - Pacemaker 02/16/2017 s/p PPM () 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 - Peritonitis ([facility]) PAST SURGICAL HISTORY Procedure Laterality [...] Myalgia - Hctz [Amiloride-Hyd* Swelling - Other Lake-3s Unknown brelinta - Ramipril Swelling - Simvastatin [...] (AK,AV,EU,FV,HL,DEMARCO,MM,SP) ACTIVATED PTT (AK,AV,EU,FV,HL,DEMARCO,MM,SP) ECU TROPONIN I (AK ED) LACTIC ACID / LACTATE (AK,AV,EU,FV,HL,DEMARCO,MM,SP) MDRD [...] Time: 6:45 PM Aneudy Prakash MD 07/06 184 Encounter Diagnosis ICD-10-CM 1. Evisceration of bowel K43.9 Plan The Patient was admitted Condition at time of disposition: improved and stable SIGNATURE: MD Fredy Rhodes (Res) MD Gavin Resident 07/06/17 2214 Aneudy Prakash MD 07/07/17 1533 ED NOTE Observed: 07/06/2017 Status: COMPLETED Source: [place] 7:21 PM CLINIC OTHER CAMPUS REPOSITORY HNO ID: [id number] Author: Dian Toth) MITCHELL Tapia Service: Emergency Medicine Author Type: Registered Nurse Type: ED Notes Filed: 07/06/2017 7:21 PM Note Text: Stoma noted protruding in colostomy bag, beefy red. Stool noted in bag. ED NOTE Observed: 07/06/2017 Status: COMPLETED Source: [place] 7:05 PM [facility] OTHER CAMPUS REPOSITORY HNO ID: [id number] Author: Dian Toth) MITCHELL Tapia Service: Emergency Medicine Author Type: Registered Nurse Type: ED Notes Filed: 07/06/2017 7:15 PM Note Text: Report received from MITCHELL Fuller. Care assumed at this time. CT ABDOMEN AND PELVIS Observed: 07/06/2017 Status: F Source: [facility] WITH CONTRAST 6:10 PM HEALTH SYSTEM REPOSITORY Performed at [facility] APPROVED BY: Courtney Marley [...] ED NOTE Observed: 07/06/2017 Status: COMPLETED Source: [place] 5:06 PM CLINIC OTHER CAMPUS REPOSITORY HNO ID: [id number] Author: Alina (Rn) MITCHELL Han Service: Emergency Medicine Author Type: Registered Nurse Type: ED Notes Filed: 07/06/2017 5:06 PM Note Text: Transport called HEMOGRAM/DIFF Collected: 07/06/2017 Status: F Source: [facility] 4:08 PM HEALTH SYSTEM REPOSITORY TYPE CODE [...] 1.37 LAB MONON(LOIN 0.30-0.82 thou/cmm C) Abs. Wirt 0.53 LAB EOSN(LOINC 0.04-0.54 thou/cmm ) Low Abs. Eosin 0.02 LAB BASON(LOIN 0.01-0.08 thou/cmm C) Abs. Baso 0.02 Performed By: #### CBCD1 #### [place] [address] BASIC PANEL Collected: 07/06/2017 Status: F Source: [facility] 4:08 PM HEALTH SYSTEM REPOSITORY TYPE CODE [...] Gap 11 Performed By: #### P8 #### [place] [address] MDRD GFR Collected: 07/06/2017 Status: F Source: [address] SYSTEM REPOSITORY TYPE CODE TESTS RESULT OUT OF RANGE REFERENCE UNITS LAB GFRFN(LOINC >60mL/min/1.73m ) 2 eGFR >60 Result Comment: If the patient is , multiply the result by 1.210. Performed By: #### GFR #### [place] [address] ECU TROPONIN I Collected: 07/06/2017 Status: F Source: [address] [facility] SYSTEM REPOSITORY TYPE CODE TESTS RESULT OUT OF REFERENCE UNITS RANGE LAB ERTRP(LOINC 0.015-0.045 ng/ml ) ECU Troponin I < 0.015 Performed By: #### ERTRP #### [place] [address] PROTIME Collected: 07/06/2017 Status: F Source: [address] SYSTEM REPOSITORY TYPE CODE TESTS RESULT OUT OF REFERENCE UNITS RANGE LAB PTI(LOINC) 9.3-11.9 sec Prothrombin Time 11.3 LAB INR(LOINC) INR 1.08 Result Comment: Standard Therapy 2.0-3.0 High Dose 2.5-3.5 Performed By: #### PT #### [place] [address] ACTIVATED PTT Collected: 07/06/2017 Status: F Source: [address] [facility] SYSTEM REPOSITORY TYPE CODE TESTS RESULT OUT OF REFERENCE UNITS RANGE LAB APTT(LOINC 22.0-34.0 sec ) Activated PTT 23.9 Performed By: #### APTT #### [place] [address] LACTIC ACID Collected: 07/06/2017 Status: F Source: [address] SYSTEM REPOSITORY TYPE CODE TESTS RESULT OUT OF REFERENCE UNITS RANGE LAB LAC(LOINC) 0.4-2.0 mEq/L Lactic Acid 1.0 Performed By: #### LAC #### [place] [address] CHEST 1 VIEW Observed: 07/06/2017 Status: F Source: [facility] 3:52 PM HEALTH SYSTEM REPOSITORY Performed at [facility] APPROVED BY: Courtney Marley [...] HISTORY PHYSICAL Observed: 07/06/2017 Status: COMPLETED Source: [place] 3:40 PM CLINIC OTHER CAMPUS REPOSITORY HNO ID: [id number] Author: Dylan Hartman Service: General Surgery Author [...] history and was last seen by a communication specialist he thinks 3 months ago. From a previous note the patient is status post CABG x3 (OQCN-RQR-atqclf, URA-PWV-rbauin, AIC-IM8-biqgbxeg); last PCI 01/2017?([facility] ): GREY to proximal LAD on DAPT; ischemic systolic congestive heart failure (EF 47%) on ARB, The initial surgery was for diverticulitis complicated by a perforation (July 2016), status post Chad?s with loop colostomy complicated by a stoma prolapse with a large parastomal hernia Of note, he was scheduled for elective surgery on 06/21/[address] Rios Yoo for reversal of the Hcad?s. the patient was seen in the outpatient setting by Dr. Osuna from Cardiology who recommended delaying surgery due to the need for DAPT for at least 3-6 months given recent NSTEMI at requiring PCI and GREY. 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 - Peritonitis ([facility]) PAST SURGICAL HISTORY Procedure Laterality [...] Myalgia - Hctz [Amiloride-Hyd* Swelling - Other Lake-3s Unknown brelinta - Ramipril Swelling - Simvastatin [...] 06, 2017 TIME: 3:41 PM PAGER/CONTACT #: [phone] ED NOTE Observed: 07/06/2017 Status: COMPLETED Source: [place] 3:33 PM [facility] [place] REPOSITORY HNO ID: [id number] Author: Alina Han RN Service: Emergency Medicine Author Type: Registered Nurse Type: ED Notes Filed: 07/06/2017 3:33 PM Note Text: Surgery at bedside ED NOTE Observed: 07/06/2017 Status: COMPLETED Source: [place] 3:15 PM [facility] OTHER [place] REPOSITORY HNO ID: [id number] Author: Alina Han RN Service: Emergency Medicine Author Type: Registered Nurse Type: ED Notes Filed: 07/06/2017 3:48 PM Note Text: alarm security or surveillance monitor, pulse ox and blood pressure cuff applied to patient. ED NOTE Observed: 07/06/2017 Status: COMPLETED Source: [place] 3:12 PM [facility] OTHER CAMPUS REPOSITORY HNO ID: [id number] Author: Alina Han RN Service: Emergency Medicine Author Type: Registered Nurse Type: ED Notes Filed: 07/06/2017 3:13 PM Note Text: Stool noted in colostomy bag. Stoma protruding, pt states he was coughing and it happened Couple of hours ago ED TRIAGE NOTE Observed: 07/06/2017 Status: COMPLETED Source: [place] 2:38 PM CLINIC OTHER CAMPUS REPOSITORY HNO ID: [id number] Author: ALEM Arzate (Pa) Service: Emergency Medicine Author Type: Physician Title Insurance Examiner Type: ED Triage Notes Filed: 07/06/2017 2:44 [...] pink color. AMEZQUITA INTAKE WORKUP: Deferred SIGNATURE: Shell Bang PA-C PROVIDER NOTE - ED Observed: 07/05/2017 Status: COMPLETED Source: [place] 6:30 PM HOSPITALS REPOSITORY Time Seen: ? [...] Critically Ill Patient no Electronic Signatures: Benton Gonzales () (Signed 05-Jul-2017 18:40) Authored: Time Seen / ED Notes, Triage Vital Signs, History of Present Illness, Patient History, History Attestation, Lab Results Review, Diagnostic Imaging Results Review, Progress Note, ED Disposition (REQUIRED), Attestation Last Updated: 05-Jul-2017 18:40 by Benton Gonzales () References: 1. Data Referenced From Triage - ED 07/05/2017 3:10 PM CBC AND DIFFERENTIAL Collected: 07/05/2017 Status: F Source: [place] 4:07 PM HOSPITALS REPOSITORY TYPE CODE TESTS [...] BASOPHIL 0.03 Performed By: #### CBCDF #### [facility] [address] [place] [address] PT/INR Collected: 07/05/2017 Status: F Source: [place] [address]:[address] [place] [address] REPOSITORY TYPE CODE TESTS RESULT OUT OF REFERENCE UNITS RANGE LAB PT(LOINC) 9.8 - 12.7 sec PROTHROMBIN TIME 12.5 LAB INR(LOINC) 0.9 - 1.1 PT, INR 1.1 Performed By: #### PTINR #### [facility] [address] [place] [address] LACTATE Collected: 07/05/2017 Status: F Source: [place] [address]:[address] [place] [address] REPOSITORY TYPE CODE TESTS RESULT OUT OF REFERENCE UNITS RANGE LAB LACT(LOINC) 0.4 - 2.0 mmol/L LACTATE 1.3 Result Comment: Venipuncture immediately after or during the administration of Metamizole may lead to falsely low results. Testing should be performed immediately prior to Metamizole dosing. Performed By: #### LACT #### [facility] [address] [place] [address] AMYLASE Collected: 07/05/2017 Status: F Source: [place] [address]:[address] [place] [address] REPOSITORY TYPE CODE TESTS RESULT OUT OF REFERENCE UNITS RANGE LAB VIANNEY(LOINC) 29 - 103 U/L AMYLASE 30 Performed By: #### VIANNEY #### [facility] [address] [place] [address] COMPREHENSIVE PANEL Collected: 07/05/2017 Status: F Source: [place] [address]:07 PM [facility] REPOSITORY TYPE CODE TESTS RESULT OUT [...] for ALT. Performed By: #### CMP #### [facility] [address] [place] [address] LIPASE Collected: 07/05/2017 Status: F Source: [place] 4:07 PM [facility] REPOSITORY TYPE CODE TESTS RESULT OUT OF REFERENCE UNITS RANGE LAB LIPAS(LOINC 9 - 82 U/L ) LIPASE 9 Result Comment: Venipuncture immediately after or during the administration of Metamizole may lead to falsely low results. Testing should be performed immediately prior to Metamizole dosing. Performed By: #### LIPAS #### [facility] [address] [place] [address] ED NOTE Observed: 06/25/2017 Status: COMPLETED Source: [place] 6:36 PM [facility] [place] REPOSITORY HNO ID: [id number] Author: Sasha KingRn) MITCHELL Wilks Service: Emergency Medicine Author Type: Registered Nurse Type: ED Notes Filed: 06/25/2017 6:37 PM Note Text: Stoma nurse at bedside. Will continue to monitor. ED NOTE Observed: 06/25/2017 Status: COMPLETED Source: [place] 6:20 PM [facility] REPOSITORY HNO ID: [id number] Author: Sasha Toth) MITCHELL Wilks Service: Emergency Medicine Author Type: Registered Nurse Type: ED Notes Filed: 06/25/2017 6:20 PM Note Text: Pt provided with snack box. Tolerating well. No other needs at this time. Pt waiting for stoma nurse. NAD noted at this time. Safety checks completed. No change in stoma size of pain. Will continue to monitor. ED NOTE Observed: 06/25/2017 Status: COMPLETED Source: [place] 6:18 PM [facility] REPOSITORY HNO ID: [id number] Author: Keena KingRn) MITCHELL Ham Service: (none) Author Type: Registered Nurse Type: ED Notes Filed: 06/25/2017 6:18 PM Note Text: Pt provided snack box with MD Odell approval. ED NOTE Observed: 06/25/2017 Status: COMPLETED Source: [place] 4:12 PM [facility] REPOSITORY HNO ID: [id number] Author: Sasha KingRn) MITCHELL Wilks Service: Emergency Medicine Author Type: Registered Nurse Type: ED Notes Filed: 06/25/2017 4:12 PM Note Text: Pt ambulated to BR with stable gait. NAD noted at this time. Safety checks completed. Will continue to monitor. CONSULT PROG Observed: 06/25/2017 Status: COMPLETED Source: [place] 3:01 PM [facility] [place] REPOSITORY HNO ID: [id number] Author: Fani Dover (Fel) Service: Colorectal Author [...] by cardiology as the patient had recent FL and could not be taken off dual [...] (abdominal aortic aneurysm) without rupture ([facility]) 05/13/[address] a/p - CAD (coronary artery disease) 2005 CAD s/p CABG x3 (JTMV-FXQ-spvger, QUC-OXK-xseohj, IXB-LN3-nzkdxtpo) (2006 at [place]) - Current every day smoker PT SMOKES A PIPE - Diverticulitis Perforated Diverticulitis - Pacemaker 02/16/2017 s/p PPM () 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 - Peritonitis ([facility]) PAST SURGICAL HISTORY: PAST SURGICAL HISTORY Procedure Laterality Date - APPENDECTOMY HX - COLON SURGERY HX 07/2016 Chad's - HEART SURGERY HX triple bypass 10 yrs ago REVIEW OF SYSTEMS: HIDE TANNER: no history of stroke, no history of TIAs, and no history of seizures. RESP: denies dyspnea, cough, asthma, bronchitis, emphysema, and URI < 2 weeks ago. CARD: recent FL, s/p PCI GI: diverticulitis : No history [...] male, with chronically prolapsing transverse colostomy, recent FL on asa/plavix with chronic abdominal pain Plan: [...] ED NOTE Observed: 06/25/2017 Status: COMPLETED Source: [place] 2:40 PM [facility] REPOSITORY HNO ID: [id number] Author: Sasha (Rn) MITCHELL Wilks Service: Emergency [...] W IVCON Observed: 06/25/2017 Status: F Source: [place] 2:24 PM [facility] REPOSITORY * * *Final Report* * * DATE OF EXAM: Jun 25 2017 2:24PM [facility] 0530 - CT ABD/PEL W [...] PRIOR STUDY. NO ACUTE ABDOMINAL PELVIC PATHOLOGY. Geriatric Physical Therapist: PSCB Transcribe Date/Time: Jun 25 2017 3:02P Dictated by : ANNY MURRELL MD This examination was interpreted and the report reviewed and electronically signed by: ABHAY ARNOLD MD on Jun 25 2017 3:58PM EST [id number] ED NOTE Observed: 06/25/2017 Status: COMPLETED Source: [place] 1:00 PM [facility] [place] REPOSITORY HNO ID: [id number] Author: Sasha Toth) MITCHELL Wilks Service: Emergency Medicine Author Type: Registered Nurse Type: ED Notes Filed: 06/25/2017 1:17 PM Note Text: Colorectal surgeon consult at bedside. Will continue to monitor. ED NOTE Observed: 06/25/2017 Status: COMPLETED Source: [place] 11:21 AM [facility] REPOSITORY HNO ID: [id number] Author: Jerry KingMedicDwight Reddy Service: Emergency Medicine Author Type: Assistant Infant Teacher and Media Account Executive Type: ED Notes Filed: 06/25/2017 11:21 AM Note Text: Labs were drawn and sent. CBC AND DIFFERENTIAL Collected: 06/25/2017 Status: F Source: [place] 11:20 AM [facility] REPOSITORY TYPE CODE TESTS RESULT [...] k/uL Abs Lymph 1.26 LAB AMONO % Wirt% 5.9 LAB AAMONO <0.87 k/uL Abs Wirt 0.43 LAB AEOS % Eosin% 1.1 LAB AAEOS <0.46 k/uL Abs Eosin 0.08 LAB ABASO % Baso% 0.4 LAB AABASO <0.11 k/uL Abs Baso 0.03 LAB AUNRBC 0 /100 WBC NRBCs 0.0 LAB ABNRBC <0.01 k/uL Absolute nRBC <0.01 LAB DTYP DTYPE Auto Diff Performed By: #### CBCDIF, CMP #### [facility] [address], [place] [address] COMP METABOLIC PANEL Collected: 06/25/2017 Status: F Source: [place] 11:20 AM [facility] REPOSITORY TYPE CODE [...] GFR. Performed By: #### CBCDIF, CMP #### [facility] [address] [place], [place] [address] ED PROV NOTE Observed: 06/25/2017 Status: COMPLETED Source: [place] 11:13 AM [facility] [place] REPOSITORY HNO ID: [id number] Author: Milena Larose MD Service: Emergency Medicine [...] artery disease) 2005 CAD s/p CABG x3 (OPXI-BEZ-ktijpf, VMG-PUF-lqxuis, NIQ-PF6-yyhhdqma) (2006 at [place]) - Current every day smoker PT SMOKES [...] ED NOTE Observed: 06/25/2017 Status: COMPLETED Source: [place] 10:40 AM [facility] REPOSITORY HNO ID: [id number] Author: Sasha (Rn) MITCHELL Wilks Service: Emergency [...] Safety checks completed. Will continue to monitor. RAD/ABDOMEN 1 VIEW Observed: 06/22/2017 Status: F Source: [place] 10:28 AM [facility] REPOSITORY Patient Name: MAXX KNOTT STUDY: RAD/ABDOMEN 1 VIEW; 06/22/2017 8:07 am INDICATION: abd pain;. COMPARISON: 06/21/2017 ACCESSION NUMBER(S): [id number] ORDERING CLINICIAN: JONATHON MAJANO TECHNIQUE: 1 views of the abdomen FINDINGS: Oral contrast is present within the colon. No dilated loops of bowel. Excreted contrast material within the urinary bladder. IMPRESSION: No dilated loops of bowel. Dictated by: Electronically Signed by: Jose Alejandro Bro Electronically Signed on: 06/22/2017 10:28 AM CMP Collected: 06/22/2017 Status: F Source: ROBERT 6:51 AM [facility] REPOSITORY TYPE CODE TESTS RESULT OUT OF REFERENCE UNITS RANGE LAB 1150704(LO 136-144 mmol/L INC) Sodium 136 LAB 7398108(LO 3.4-5.1 mmol/L INC) Potassium 3.6 LAB 5672037(LO 98-107 mmol/L INC) Chloride 104 LAB 9966817(LO 22-32 mmol/L INC) CO2 25 LAB 376496(USHA 5.0-19.0 mmol/L NC) Anion Gap 7.0 LAB 0079483(LO 70-100 mg/dL INC) Glucose 87 LAB 4010519(LO 8-26 mg/dL INC) BUN 15 LAB 5000918(LO 0.60-1.30 mg/dL INC) Creatinine 0.95 LAB 4810684(LO 8.1-10.1 mg/dL INC) Calcium 9.0 LAB 8693505(LO 6.5-8.1 g/dL INC) Total Protein 6.9 LAB 5865126(LO 3.5-5.0 g/dL INC) Albumin 3.6 LAB 4619180(LO 0.3-1.2 mg/dL INC) Bilirubin Total 0.7 LAB 5057373(LO 15-41 IU/L INC) AST (SGOT) 32 LAB 6186479(LO 14-63 IU/L INC) ALT (SGPT) 37 LAB 7811313(LO 32-91 IU/L INC) Alk Phos 87 LAB 582242(USHA NC) Bun/CretRatio 15.8 LAB 764040(USHA mOsm/kg NC) Osmolality-Calc 272 AUTO DIFF Collected: 06/22/2017 Status: F Source: JONES 4:25 [facility] REPOSITORY TYPE CODE TESTS RESULT OUT OF REFERENCE UNITS RANGE LAB NEUT(LOINC 41.0-73.8 % ) Neutrophil% 62.9 LAB LYMP%(LOIN 17.0-44.0 % C) Lymph % 26.0 LAB MONO%(LOIN 5.3-12.5 % C) Wirt % 6.4 LAB EO%(LOINC) 0.7-6.5 % Eo% 2.8 LAB BASO%(LOIN 0.0-2.4 % C) Baso% 1.9 LAB ANEUT(LOIN 1.8-7.5 x10E9/L C) Neutrophil 5.8 LAB ALYMP(LOIN 1.1-3.5 x10E9/L C) Lymphocyte 2.4 LAB AMONO(LOIN 0.3-1.0 x10E9/L C) Monocyte 0.6 LAB AEO(LOINC) 0.0-0.5 x10E9/L Eosinophil 0.3 LAB ABASO(LOIN 0.0-0.2 x10E9/L C) Basophil 0.2 ZCBCD Collected: 06/22/2017 Status: F Source: ROBERT 4:25 [facility] REPOSITORY TYPE CODE TESTS RESULT OUT OF REFERENCE UNITS RANGE LAB 3813150(LO 4.3-10.5 x10E9/L INC) WBC 9.1 LAB 6172181(LO 4.18-5.87 x10E12/L INC) RBC 4.19 LAB 2013012(LO 13.4-17.5 g/dL INC) Low Hemoglobin 13.0 LAB 6969959(LO 37.5-49.2 % INC) Hematocrit 38.4 LAB MCV(LOINC) 80.0-100.0 fL MCV 91.8 LAB MCH(LOINC) 26.5-33.0 pg MCH 31.1 LAB MCHC(LOINC 32.6-36.0 g/dL ) MCHC 33.9 LAB 8642365(LO 144-400 x10E9/L INC) Platelet 229 LAB 344218(USHA 7.2-10.3 fL NC) Mean Plt Vol 9.1 LAB 245750(USHA 11.4-16.0 % NC) RDW High 16.1 TROPONIN Collected: 06/22/2017 Status: F Source: ROBERT 4:25 AM [facility] REPOSITORY TYPE CODE TESTS RESULT OUT OF REFERENCE UNITS RANGE LAB 9865428(USHA ng/mL NC) Troponin 0.04 Result Comment: <0.04 Normal 0.04 - 0.50 Possible cardiac damage >0.50 Consistent with cardiac damage CT/ABDOMEN/PELVIS WITH Observed: 06/21/2017 Status: F Source: ROBERT 11:16 PM [facility] REPOSITORY Patient Name: MAXX KNOTT STUDY: CT/ABDOMEN/PELVIS WITH; 06/21/2017 10:50 pm INDICATION: Stomal hernia, abdominal pain COMPARISON: 05/25/2017 ACCESSION NUMBER(S): [id number] ORDERING CLINICIAN: JUANCHO COURTNEY TECHNIQUE: Contiguous axial images of the abdomen and pelvis were obtained after the intravenous administration of 75 mL of Omnipaque 350. Coronal and sagittal reformatted images were obtained from the axial images. FINDINGS: There is left diaphragmatic defect with focal herniation of the gastric fundus. The hernia demonstrates a narrow neck measuring 2.5 cm in diameter on coronal image 58 of 104. The hernia is grossly stable comparison to the 05/25/2017 CT examination, however herniation of the stomach is new in comparison to the 04/28/2017 CT chest examination. Nasogastric tube tip terminates in the stomach. Oral contrast in the thoracic esophagus may relate to retained contrast or gastroesophageal reflux. No evidence of liver mass. The gallbladder is present. Density in the gallbladder may correspond to sludge or stones. No dilatation of the common bile duct. The pancreas and spleen appear unremarkable. Stable diffuse thickening of the left adrenal gland. The right adrenal gland appears unremarkable. Symmetric enhancement of the kidneys. Stable 2.3 cm hypodense lesion in the mid left kidney which measures slightly greater than simple fluid attenuation. There is also a stable subcentimeter indeterminate hypodense lesion in the mid to lower left kidney. Subcentimeter renal hypodensities are too small to characterize. No hydronephrosis. Atherosclerotic calcification of the abdominal aorta and iliac arteries. Stable 3 cm focal area of ectasia of the infrarenal abdominal aorta. Underdistention versus gastric antrum wall thickening. Stable postsurgical change of right side colostomy and parastomal hernia containing small bowel loops. No evidence of bowel obstruction. Colonic diverticulosis without evidence of acute diverticulitis. The descending and sigmoid colon are underdistended and not well evaluated. There is however stable focal segment of wall thickening of the sigmoid colon on axial image 108 of 161. The appendix is surgically absent. Urinary bladder is underdistended and not well evaluated. Prostatomegaly. Multilevel degenerative change of the lumbar spine. IMPRESSION: Herniation of the gastric fundus through a focal defect in the left diaphragm. The hernia demonstrates a narrow neck measuring 2.5 cm in diameter on coronal image 58 of 104. The hernia is grossly stable in comparison to the 05/25/2017 CT examination, however the stomach herniation is new in comparison to the 04/28/2017 CT chest examination. Follow-up surgical consultation is recommended. Postsurgical change of right side colostomy and stable parastomal hernia containing small bowel loops. No evidence of bowel obstruction. Underdistention versus gastric antrum wall thickening which may be secondary to gastritis; underlying ulcer or other gastric pathology is however not excluded. Colonic diverticulosis without evidence of acute diverticulitis. The descending and sigmoid colon are underdistended and not well evaluated. There is however focal segment of narrowing of the distal descending/proximal sigmoid colon on axial image 108 of 161, and underlying mass is not excluded. Stable 3 cm infrarenal abdominal aortic aneurysm. Stable 2.3 cm indeterminate left renal lesion which measures greater than simple fluid attenuation. As previously described, this may correspond to a small hemorrhagic cyst, however renal mass is not excluded, and follow-up renal protocol CT may be obtained for further evaluation. There is also a stable indeterminate subcentimeter hypodense lesion in the mid to lower left kidney; attention on follow-up imaging. Prostatomegaly; please correlate with PSA. Dictated by: Electronically Signed by: Nilson Coelho Electronically Signed on: 06/21/2017 11:16 PM TROPONIN Collected: 06/21/2017 Status: F Source: ROBERT 10:09 PM [facility] REPOSITORY TYPE CODE TESTS RESULT OUT OF REFERENCE UNITS RANGE LAB 7579090(USHA ng/mL NC) Troponin 0.05 Result Comment: <0.04 Normal 0.04 - 0.50 Possible cardiac damage >0.50 Consistent with cardiac damage LACTIC ACID Collected: 06/21/2017 Status: F Source: ROBERT 7:55 PM [facility] REPOSITORY TYPE CODE TESTS RESULT OUT OF REFERENCE UNITS RANGE LAB 0585915(USHA 0.5-2.2 mmol/L NC) Lactic Acid 1.6 TROPONIN Collected: 06/21/2017 Status: F Source: [place]ERT 5:54 PM [facility] REPOSITORY TYPE CODE TESTS RESULT OUT OF REFERENCE UNITS RANGE LAB 2701134(SUHA ng/mL NC) Troponin 0.04 Result Comment: <0.04 Normal 0.04 - 0.50 Possible cardiac damage >0.50 Consistent with cardiac damage RAD/ABD 3 OR MORE Observed: 06/21/2017 Status: F Source: JONES VIEWS 4:00 PM [facility] REPOSITORY Patient Name: MAXX KNOTT STUDY: RAD/ABD 3 OR MORE VIEWS; 06/21/2017 3:33 pm INDICATION: ABD PAIN. COMPARISON: None. ACCESSION NUMBER(S): [id number] ORDERING CLINICIAN: JUANCHO COURTNEY TECHNIQUE: AP upright and supine abdomen radiographs are submitted. FINDINGS: No free intraperitoneal air. There is gaseous distention of the stomach with a fluid level on the upright view. Of note, there is a rounded retrocardiac density laterally than typical for a hiatus hernia. Is shown on the prior CT to represent a focal defect in the dome of the left diaphragm with herniation of the gastric fundus superiorly. Gas is noted in nondistended loops of small bowel. No definite abnormal calcifications. IMPRESSION: See discussion above Dictated by: Electronically Signed by: Abhay Sharpe Electronically Signed on: 06/21/2017 4:00 PM RAD/CHEST 2V Observed: 06/21/2017 Status: F Source: JONES FRONTAL/LAT 3:38 PM [facility] REPOSITORY Patient Name: MAXX KNOTT STUDY: RAD/CHEST 2V FRONTAL/LAT; 06/21/2017 3:33 pm INDICATION: Chest pain. COMPARISON: 05/25/2017 ACCESSION NUMBER(S): [id number] ORDERING CLINICIAN: JUANCHO COURTNEY FINDINGS: Two views of the chest were obtained. Overlying monitoring leads are noted. Bipolar left subclavian pacer wires are grossly unchanged. Associated port obscures the left upper lung field. No focal infiltrate or pleural effusion. Cardiac silhouette is slightly prominent, status post median sternotomy. Lobulated eventration or hernia in the central left hemidiaphragm is similar to the prior study. Multilevel thoracic vertebral degenerative endplate spurring. IMPRESSION: Status post sternotomy. No focal infiltrate. Dictated by: Electronically Signed by: Hawa Hoang Electronically Signed on: 06/21/2017 3:38 PM AUTO DIFF Collected: 06/21/2017 Status: F Source: ROBERT 2:49 PM [facility] REPOSITORY TYPE CODE TESTS RESULT OUT OF REFERENCE UNITS RANGE LAB NEUT(LOINC 41.0-73.8 % ) High Neutrophil% 81.4 LAB LYMP%(LOIN 17.0-44.0 % C) Low Lymph % 11.6 LAB MONO%(LOIN 5.3-12.5 % C) Wirt % 5.8 LAB EO%(LOINC) 0.7-6.5 % Low Eo% 0.3 LAB BASO%(LOIN 0.0-2.4 % C) Baso% 0.9 LAB ANEUT(LOIN 1.8-7.5 x10E9/L C) High Neutrophil 8.1 LAB ALYMP(LOIN 1.1-3.5 x10E9/L C) Lymphocyte 1.1 LAB AMONO(LOIN 0.3-1.0 x10E9/L C) Monocyte 0.6 LAB AEO(LOINC) 0.0-0.5 x10E9/L Eosinophil 0.0 LAB ABASO(LOIN 0.0-0.2 x10E9/L C) Basophil 0.1 ZCBCD Collected: 06/21/2017 Status: F Source: ROBERT 2:49 PM [facility] REPOSITORY TYPE CODE TESTS RESULT OUT OF REFERENCE UNITS RANGE LAB 6217380(LO 4.3-10.5 x10E9/L INC) WBC 9.9 LAB 6954968(LO 4.18-5.87 x10E12/L INC) RBC 4.60 LAB 0171561(LO 13.4-17.5 g/dL INC) Hemoglobin 14.1 LAB 4366570(LO 37.5-49.2 % INC) Hematocrit 42.8 LAB MCV(LOINC) 80.0-100.0 fL MCV 93.1 LAB MCH(LOINC) 26.5-33.0 pg MCH 30.6 LAB MCHC(LOINC 32.6-36.0 g/dL ) MCHC 32.9 LAB 9330049(LO 144-400 x10E9/L INC) Platelet 260 LAB 066346(USHA 7.2-10.3 fL NC) Mean Plt Vol 8.8 LAB 427219(USHA 11.4-16.0 % NC) RDW High 16.1 TROPONIN Collected: 06/21/2017 Status: F Source: JONES 2:48 PM [facility] REPOSITORY TYPE CODE TESTS RESULT OUT OF REFERENCE UNITS RANGE LAB 7129860(USHA ng/mL NC) Troponin 0.03 Result Comment: <0.04 Normal 0.04 - 0.50 Possible cardiac damage >0.50 Consistent with cardiac damage BMP Collected: 06/21/2017 Status: F Source: ROBERT 2:48 PM [facility] REPOSITORY TYPE CODE TESTS RESULT OUT OF REFERENCE UNITS RANGE LAB 6001710(LO 136-144 mmol/L INC) Low Sodium 135 LAB 2699399(LO 3.4-5.1 mmol/L INC) Potassium 4.6 Result Comment: Specimen slightly hemolyzed, results may be affected. LAB 3620999(LOINC) 98-107 mmol/L Chloride 99 LAB 6153365(LOINC) 22-32 mmol/L CO2 23 LAB 331355(LOINC) 5.0-19.0 mmol/L Anion Gap 13.0 LAB 7579277(LOINC) 70-100 mg/dL Glucose High 148 LAB 3728288(LOINC) 8-26 mg/dL BUN 15 LAB 0163279(LOINC) 0.60-1.30 mg/dL Creatinine 0.99 LAB 5029597(LOINC) 8.1-10.1 mg/dL Calcium 9.5 LAB 760119(LOINC) mOsm/kg Osmolality-Calc 274 LAB 300301(LOINC) Bun/CretRatio 15.2 [facility] Observed: 06/19/2017 Status: COMPLETED Source: [place] 6:41 PM [facility] REPOSITORY HNO ID: [id number] Author: Mata (Rn) MITCHELL Schultz Service: Wound/Ostomy Author Type: Registered [...] of ostomy supplies). Spoke with Rose at [facility] who will follow up with patient to discuss his needs for the future. Patient states understanding to the above, script provided for the supplies he uses, and 2 weeks supplies of comparable system provided. ET's Next Scheduled Visit:06/22/17 Time Increment: 45 minutes MAIA Salinas, RN, CWOCN CASE MANAGEM Observed: 06/19/2017 Status: COMPLETED Source: [place] 2:50 PM [facility] REPOSITORY HNO ID: [id number] Author: Lupe Merino (Sw) Service: Care Management Author Type: Shipping Order Clerk Type: Care Mgt Progress Note Filed: 06/19/2017 2:54 PM Note Text: CARE MANAGEMENT DISCHARGE NOTE SERVICE DATE: 06/19/2017 SERVICE TIME: 2:50 PM LOS: 2 days Admission Date: 06/17/2017 DISCHARGE ARRANGEMENT (list agency and phone number) Home care Provider: [facility] jon Kelly CAREGIVER ASSESSMENT: Caregiver is ready, willing and [...] 19, 2017 TIME: 2:50 PM PAGER/CONTACT #: [phone] ALL[facility] HE[facility] Observed: 06/19/2017 Status: COMPLETED Source: [place] 12:32 PM [facility] REPOSITORY HNO ID: [id number] Author: Mata KingRn) MITCHELL Schultz Service: Wound/Ostomy Author Type: Registered Nurse Type: Allied Health Filed: 06/19/2017 12:37 PM Note Text: [place] [address] OSTOMY SUPPLY ORDER FORM Patient: Maxx Knott Patient Address: [address] [place], [place] [address] Gender: male Date of : 1950 Type of Stoma: Loop Transverse Colostomy Diagnosis: Diverticulitis w/o perforation K57.92 Item and Description Qty 30 Day Use Pouch: Turkey: #33528 Wafer: Turkey: 4 cut to fit flat flange, #07237 Adhesive Removers: ConvaTec Sensi-Care No Sting #514373 Belt: Turkey Large # 7299 Moldable Ring: Kareem Seal 2 # 022120 Powder: Convatec Stomahesive # 74834 Skin Barrier: Hollihesive 4x4 5/box #7700 10/Box 5/Box 30/Box 1 Belt 10/Box 1 Bottle 5/Box 2 Boxes 4 Boxes 1 Box 1 Belt 2 Boxes 1 Bottle 2/Boxes Refills: 12 Attending Physician: Dr. Yoo For immediate authorization, please contact the physician?s office. [facility] Nurse: EMIL Salinas Note: na SIGNATURE: Mata Schultz RN PATIENT NAME: Maxx Knott DATE: June 19, 2017 TIME: 12:33 PM CONTACT #: [phone] CNDS Observed: 06/19/2017 Status: COMPLETED Source: [place] 12:30 PM [facility] REPOSITORY HNO ID: [id number] Author: Chanel Gonzales CNP Service: Colorectal Author Type: Nurse Practitioner Type: Discharge Summaries Filed: 06/19/2017 12:31 PM Note Text: DISCHARGE SUMMARY PATIENT NAME: Maxx Knott ADMISSION DATE: 06/17/2017 DISCHARGE DATE: 06/19/2017 Attending Physician: Ro Yoo Primary Diagnosis: Stoma prolapse Reason for Hospitalization: The patient has a history of essential hypertension on Amlodipine 10 mg daily and losartan 100 mg daily; CAD, status post CABG x3 (XAGH-RGJ-uchzgb, STX-YLA-tflopr, GQE-MC3-xsmkjpvu); last PCI 01/2017 ( hospital ): GREY to [...] seen in the outpatient setting by Dr. Osuna from Cardiology who recommended delaying surgery due [...] future appointments. SIGNATURE: Chanel Gonzales CNP PAGER: [phone] DATE: June 19, 2017 TIME: 12:30 PM CASE MANAGEM Observed: 06/19/2017 Status: COMPLETED Source: [place] 12:07 PM [facility] RE[facility]IT[facility] HNO ID: [id number] Author: Marlen Faith (Asst) Service: Care Management Author Type: Resource Center Title Insurance Examiner Type: Care Mgt Progress Note Filed: 06/19/2017 12:07 PM Note Text: CARE MANAGEMENT PROGRESS NOTE SERVICE DATE: 06/19/2017 SERVICE TIME: 11:40 LOS: 2 days IM letter given to patient on 06/19/17. SIGNATURE: Asst Nasima PATIENT NAME: Maxx Knott DATE: June 19, 2017 TIME: 12:07 PM PAGER/CONTACT #: [phone] PROGRESS Observed: 06/19/2017 Status: COMPLETED Source: [place] 7:49 AM [facility] REPOSITORY HNO ID: [id number] Author: Ratna Donald (Fel) Service: Colorectal Author [...] 19, 2017 TIME: 7:49 AM PAGER/CONTACT #: [phone] NURSING PROG Observed: 06/19/2017 Status: COMPLETED Source: [place] 7:32 AM [facility] REPOSITORY HNO ID: [id number] Author: Naomie (Rn) MITCHELL Edwards Service: (none) Author Type: Registered Nurse Type: Nursing Progress Note Filed: 06/19/2017 7:32 AM Note Text: Nursing Progress Note Patient Name: Maxx Knott Patient Location: [place] [address] Daily Note:Courtney Gonzales notified of low uop 200 cc This note was completed by: Naomie Edwards RN CBC Collected: 06/19/2017 Status: F Source: [place] 4:50 AM [facility] REPOSITORY TYPE CODE TESTS RESULT [...] By: #### CBC, BMP, MG1, PHOS #### [facility] [address] [place], [place] [address] BASIC METABOLIC PANL Collected: 06/19/2017 Status: F Source: [place] 4:50 AM [facility] REPOSITORY TYPE CODE TESTS RESULT [...] By: #### CBC, BMP, MG1, PHOS #### [place] [id number] [place] [address] MAGNESIUM Collected: 06/19/2017 Status: F Source: [place] 4:50 AM [facility] REPOSITORY TYPE CODE TESTS RESULT OUT OF REFERENCE UNITS RANGE LAB MG 1.7-2.3 mg/dL Magnesium 2.0 Performed By: #### CBC, BMP, MG1, PHOS #### [place] [id number] [place] [address] PHOSPHORUS Collected: 06/19/2017 Status: F Source: [place] 4:50 AM [facility] REPOSITORY TYPE CODE TESTS RESULT OUT OF REFERENCE UNITS RANGE LAB PHOS 2.7-4.8 mg/dL Phosphorus 3.0 Performed By: #### CBC, BMP, MG1, PHOS #### [place] [address] TYPE AND SCREEN Collected: 06/19/2017 Status: F Source: [place] 4:50 AM [facility] REPOSITORY TYPE CODE TESTS RESULT OUT OF REFERENCE UNITS RANGE LAB %ABR O ABO/RH(D) POSITIVE LAB % Antibody NEG Screen Performed By: #### TSCR #### [place] [id number] [place] [address] NURSING PROG Observed: 06/18/2017 Status: COMPLETED Source: [place] 4:36 PM [facility] REPOSITORY HNO ID: [id number] Author: Milana (Rn) MITCHELL Paulson Service: (none) Author Type: Registered Nurse Type: Nursing Progress Note Filed: 06/18/2017 4:54 PM Note Text: Nursing Progress Note Patient Name: Maxx Knott Patient Location: H050 [id number]/[id number] Daily Note:Pt c/o abd pain, taking oxycodone and iv dilaudid prn. Pt denies any nausea. 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 Tele started [...] MGT INIT Observed: 06/18/2017 Status: COMPLETED Source: [facility] 2:23 PM [facility] REPOSIT[facility] HNO ID: [id number] Author: Lupe Merino (Sw) Service: Care Management Author Type: Shipping Order Clerk Type: Care Mgt Initial Assessment Filed: 06/18/2017 2:35 PM Note Text: CARE MANAGEMENT: ASSESSMENT AND DISCHARGE PLAN SERVICE DATE: 06/18/2017 SERVICE TIME: 2:23 PM SW WAS UNABLE TO SPEAK WITH PT. ATTEMPTED TO VISIT HIS ROOM X4. ASLEEP WITH CPAPP MACHINE. USED CHART TO COLLECT INFORMATION, INCLUDING CM ASSESSMENT FROM 05/16/17. WILL F/U WITH PT TOMORROW OR WHEN HE WAKES TODAY. 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 Needs Prior to Discharge: To Be Determined Health Insurance: Medicare, [employer] Living Arrangement: Home Lives With: Brother Financial Resources: Retired Primary Contact: Extended Emergency Contact Information Primary Emergency Contact: Mary Knott Address: [address] [place] [address] [place] [id number] [facility] Mobile Relation: Brother Supportive: Yes Other [...] or Home Care? Home Health Care Agency: [facility]; Phone: .; Previously Active. Equipment Prior [...] No Has the Patient Been in a Senior Living Facility in the Past 30 days? No FREEDOM OF CHOICE EXPLAINED: N/A HANDOFF COMMUNICATION: Primary Care Physician: Viral Brown SW WAS UNABLE TO SPEAK WITH PT. ATTEMPTED TO VISIT HIS ROOM X4. ASLEEP WITH CPAPP MACHINE. USED CHART TO COLLECT INFORMATION, INCLUDING CM ASSESSMENT FROM 05/16/17. WILL F/U WITH PT TOMORROW OR WHEN HE WAKES TODAY. SW to follow for any d/c needs. SIGNATURE: SOFIE WILLIS PATIENT NAME: Maxx Knott DATE: June 18, 2017 TIME: 2:23 PM PAGER/CONTACT #: [phone] CONSULT Observed: 06/18/2017 Status: COMPLETED Source: [place] 2:16 PM [facility] REPOSITORY HNO ID: [id number] Author: Genna Clinton Service: General Internal Medicine Author Type: Physician Type: Consults Filed: 06/18/2017 7:54 PM Note Text: SERVICE HISTORY AND PHYSICAL EXAM If any questions arise please contact me at [phone] PATIENT NAME: Maxx Knott ; AGE: 3 1950; 66 year old HOSPITAL ROOM: [place] [address] DATE OF ADMISSION: 06/17/2017 9:06 AM ATTENDING [...] mg daily - CAD s/p CABG x3 (EPVL-CBN-owpmjv, XOU-PAL-ticfiy, FXU-LN7-gsrkzazb), Last PCI 01/2017 ( hospital ): GREY [...] seen in the outpatient setting by Dr. 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 Cardiology note from last admission: [facility] hospitalization 04/15-04/17/2017: 66 year old male with a history of CAD s/p CABG x3 (UGJJ-FEB-gotmyv, UKV-ZEA-ikvbli, PNV-EF6-iirfjgwn) (2006 at [facility]), systolic congestive heart failure, ischemic (EF 50%), [...] PGY-2 June 18, 2017 2:16 PM Pager: [phone] [facility] Staff addendum I have seen the [...] call with questions. Genna Clinton MD Staff, [facility] Dept. Pager # [phone] NUTRITION Observed: 06/18/2017 Status: COMPLETED Source: [place] 8:58 AM [facility] REPOSITORY HNO ID: [id number] Author: Fani Francis) JESSY Beck Service: Nutrition [...] kg (220 lb) Usual Body Weight: 113.6kg [place] Body Weight: 70kg Dosing Weight: 93 kg Resting Metabolic Rate: 1693 Estimated kilocalorie needs: 0179-1914 kilocalories determined by 20-25 kcal/kg dosing wt Estimated protein needs: 77-91 grams determined by 1.1-1.3 g/kg [place] weight Estimated fluid needs: 0196-7762 milliliters based on 1 mL per kcal [...] June 18, 2017 TIME: 8:59 AM PAGER: [phone] PROGRESS Observed: 06/18/2017 Status: COMPLETED Source: [place] 8:12 AM [facility] REPOSITORY HNO ID: [id number] Author: Ratna Donald (Fel) Service: Colorectal Author [...] 18, 2017 TIME: 8:12 AM PAGER/CONTACT #: [phone] CBC AND DIFFERENTIAL Collected: 06/18/2017 Status: F Source: [place] 6:42 AM [facility] REPOSITORY TYPE CODE TESTS RESULT [...] k/uL Abs Lymph 2.82 LAB AMONO % Wirt% 7.0 LAB AAMONO <0.87 k/uL Abs Wirt 0.74 LAB AEOS % Eosin% 2.7 LAB AAEOS <0.46 k/uL Abs Eosin 0.29 LAB ABASO % Baso% 0.4 LAB AABASO <0.11 k/uL Abs Baso 0.04 LAB AUNRBC 0 /100 WBC NRBCs 0.0 LAB ABNRBC <0.01 k/uL Absolute nRBC <0.01 LAB DTYP DTYPE Auto Diff Performed By: #### CBCDIF, PT, PTT, BMP, MG1 #### [facility] [address] [place], [place] [address] PROTIME Collected: 06/18/2017 Status: F Source: [place] 6:42 AM [facility] REPOSITORY TYPE CODE TESTS RESULT [...] GH, et al. Chest 2012, 141:7S-47S Teofilo RA et al. [facility] 2017, 70: 252-289 Performed By: #### CBCDIF, PT, PTT, BMP, MG1 #### [facility] [employer] [address] [place], [place] [address] APTT Collected: 06/18/2017 Status: F Source: [place] 6:42 [facility] REPOSITORY TYPE CODE TESTS RESULT OUT [...] laboratory APTT reagent in use throughout the [facility]. Performed By: #### CBCDIF, PT, PTT, BMP, MG1 #### [facility] [address] [place], [place] [address] BASIC METABOLIC PANL Collected: 06/18/2017 Status: F Source: [place] 6:42 AM [facility] REPOSITORY TYPE CODE TESTS RESULT [...] #### CBCDIF, PT, PTT, BMP, MG1 #### [facility] [address] [place], [place] [address] MAGNESIUM Collected: 06/18/2017 Status: F Source: [place] 6:42 AM [facility] REPOSITORY TYPE CODE TESTS RESULT OUT OF REFERENCE UNITS RANGE LAB MG 1.7-2.3 mg/dL Magnesium 1.9 Performed By: #### CBCDIF, PT, PTT, BMP, MG1 #### [facility] [address] [place], [place] [address] NURSING PROG Observed: 06/18/2017 Status: COMPLETED Source: [place] 2:00 AM [facility] REPOSITORY HNO ID: [id number] Author: Judy (Rn) MITCHELL Keenan Service: (none) Author Type: Registered Nurse Type: Nursing Progress Note Filed: 06/18/2017 6:01 AM Note Text: Nursing Progress Note Topic of Note: Progress note Maxx Knott [id number] Patient denies nausea. He complains of pain to stoma site that is controlled with prn dilaudid and fentanyl. He is voiding adequate amounts of urine. RLQ ostomy with small amount of soft brown stool. Stoma is large and prolapsed. Call light in reach. Patient encouraged frequently to continue drinking golytely. 0030 [employer] bridge contractor notified of manual BP 164/72 and that patient only drank almost half of golytely. Patient woken up frequently and reminded to drink golytley. Patient will continue to try to drink golytely until 0200 as ordered by [employer] bridge contractor. 0200 [employer] bridge contractor aware patient didn't finish golytely prep 0600 [employer] bridge contractor notified of BP 174/98 manual and HR 63. This note was completed by: Judy Keenan RN PHOSPHORUS Collected: 06/17/2017 Status: F Source: [place] 8:46 PM [facility] REPOSITORY TYPE CODE TESTS RESULT OUT OF REFERENCE UNITS RANGE LAB PHOS 2.7-4.8 mg/dL Phosphorus 2.7 Performed By: #### PHOS #### [facility] [address] [place] [address] NURSING PROG Observed: 06/17/2017 Status: COMPLETED Source: [place] 6:07 PM [facility] REPOSITORY HNO ID: [id number] Author: Malia KingRnBeth Perrin RN Service: Nursing Author Type: Registered Nurse Type: Nursing Progress Note Filed: 06/17/2017 6:08 PM Note Text: Nursing Progress Note Patient Name: Maxx Knott Patient Location: H050 021/H050-22 Transfer Note: Patient transferred into room/unit H50:26 in stable condition. Actions taken: No futher actions taken at this time. Will continue to monitor and check with patient. This note was completed by: Malia Perrin RN NURSING PROG Observed: 06/17/2017 Status: COMPLETED Source: [place] 4:59 PM [facility] REPOSITORY HNO ID: [id number] Author: Malia Perrin RN Service: Nursing Author Type: Registered Nurse Type: Nursing Progress Note Filed: 06/17/2017 7:46 PM Note Text: Nursing Progress Note Patient Name: Maxx Knott Patient Location: H050 [facility]/H050-22 Daily Note: Notified Dr. Stacey Ivey ([employer] bridge contractor) regarding pt's prolapsed stoma. Dr. Ivey in to assess pt and notified the fellow. Pt reporting that his stoma generally is this prolapsed while standing but tends to recede somewhat while laying down. [address] Ivey asking for order for CPAP as pt stating he wears it at home. 1944 Notified [employer] bridge contractor with pt's elevated BP and pt's request for Neurontin and Seroquel to be ordered. This note was completed by: Malia Perrin RN PT ED Observed: 06/17/2017 Status: COMPLETED Source: [place] 4:25 PM [facility] REPOSITORY HNO ID: [id number] Author: Ccf Provider Service: (none) Author Type: Physician Type: Patient Education Filed: 06/17/2017 4:25 PM Note Text: [facility] Patient Education Report --------- Name: MAXX KNOTT Date: 06/17/2017 Time: 4:25 PM Patient Ordered Video: Inpatient Falls from [id number] via phone number [phone] at 4:25 PM PROGRESS Observed: 06/17/2017 Status: COMPLETED Source: [place] 2:25 PM [facility] REPOSITORY HNO ID: [id number] Author: Kailey (Rn) MITCHELL Maldonado Service: (none) [...] removed my physician earlier. Usual system is: [place] 4 inch flat flange (cut to 2 [...] 30 minutes Kailey Maldonado RN, BSN, CWOCN [place] Pager [phone] (M-F 7-4 and 7-3 on weekends) Mata Schultz RN, BSN, ET, CWOCN NURSING PROG Observed: 06/17/2017 Status: COMPLETED Source: [place] 1:00 PM [facility] REPOSITORY HNO ID: [id number] Author: Malia (Rn) MITCHELL Perrin Service: Nursing Author Type: Registered [...] ED NOTE Observed: 06/17/2017 Status: COMPLETED Source: [place] 11:59 AM [facility] REPOSITORY HNO ID: [id number] Author: Crystal Gallagher RN Service: Emergency Medicine Author Type: Registered Nurse Type: ED Notes Filed: 06/17/2017 11:59 AM Note Text: Report given to Yo GONZALEZ. Pt requesting more pain medication. Will medicated, then send to the floor. Report called to the floor nurse. H50-22 ED NOTE Observed: 06/17/2017 Status: COMPLETED Source: [place] 11:30 AM [facility] REPOSITORY HNO ID: [id number] Author: Crystal Gallagher RN Service: Emergency Medicine Author Type: Registered Nurse Type: ED Notes Filed: 06/17/2017 11:59 AM Note Text: Inter stomal nurse in the room with the patient. ED NOTE Observed: 06/17/2017 Status: COMPLETED Source: [place] 10:20 AM [facility] REPOSITORY HNO ID: [id number] Author: Crystal Gallagher RN Service: Emergency Medicine Author Type: Registered Nurse Type: ED Notes Filed: 06/17/2017 10:46 AM Note Text: Pt does not want me to use the sugar. Waiting for surgery to come back in the room. ED NOTE Observed: 06/17/2017 Status: COMPLETED Source: [place] 10:14 AM [facility] REPOSITORY HNO ID: [id number] Author: Crystal Gallagher RN Service: Emergency Medicine Author Type: Registered [...] AND DIFFERENTIAL Collected: 06/17/2017 Status: F Source: [place] 10:07 AM [facility] REPOSITORY TYPE CODE TESTS RESULT [...] k/uL Abs Lymph 2.10 LAB AMONO % Wirt% 6.4 LAB AAMONO <0.87 k/uL Abs Wirt 0.76 LAB AEOS % Eosin% 1.3 LAB AAEOS <0.46 k/uL Abs Eosin 0.16 LAB ABASO % Baso% 0.3 LAB AABASO <0.11 k/uL Abs Baso 0.03 LAB AUNRBC 0 /100 WBC NRBCs 0.0 LAB ABNRBC <0.01 k/uL Absolute nRBC <0.01 LAB DTYP DTYPE Auto Diff Performed By: #### CBCDIF, CMP, LIPA #### [facility] [address] [place], [place] [address] COMP METABOLIC PANEL Collected: 06/17/2017 Status: F Source: [place] 10:07 [facility] REPOSITORY TYPE CODE TESTS RESULT OUT [...] Performed By: #### CBCDIF, CMP, LIPA #### [facility] [address] [place], [place] [address] LIPASE Collected: 06/17/2017 Status: F Source: [place] 10:07 AM [facility] REPOSITORY TYPE CODE TESTS RESULT OUT OF REFERENCE UNITS RANGE LAB LIPA 16-61 U/L Lipase 25 Performed By: #### CBCDIF, CMP, LIPA #### [facility] [address] [place], [place] [address] ED NOTE Observed: 06/17/2017 Status: COMPLETED Source: [place] 10:05 AM [facility] REPOSITORY HNO ID: [id number] Author: Mine Wesley Service: Emergency Medicine Author Type: Assistant Infant Teacher and Media Account Executive Type: ED Notes Filed: 06/17/2017 10:12 AM Note Text: Labs were drawn and sent. ED NOTE Observed: 06/17/2017 Status: COMPLETED Source: [place] 10:00 AM [facility] REPOSITORY HNO ID: [id number] Author: Crystal Gallagher RN Service: Emergency Medicine Author Type: Registered Nurse Type: ED Notes Filed: 06/17/2017 10:46 AM Note Text: Surprise/rectal surgery here to see the patient. Stoma is prolapsed. 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 Coags Recent Labs 05/16/17 1225 04/16/17 0648 01/03/17 1600 11/03/16 1055 APTT -- 26.7 27.5 22.7 INR 1.11 1.1 1.1 1.10 ASSESSMENT AND PLAN: (located at the top of the note) All NEW consults seen by [employer] fellow bridge contractor from 6A-6PM. Once consult is staffed, patient management decisions to be dictated by assigned [employer] fellow and attending. Please refer to last [employer] progress note to identify the name of provider to discuss management concerns. N. Jac Contreras M.D. Fellow in Colorectal Surgery Digestive Disease AND Surgery [place] Pager# [phone] ED PROV NOTE Observed: 06/17/2017 Status: COMPLETED Source: [place] 9:52 AM [facility] REPOSITORY HNO ID: [id number] Author: Jerry Casarez MD Service: Emergency Medicine [...] (abdominal aortic aneurysm) without rupture ([facility]) 05/13/[address] a/p - CAD (coronary artery disease) 2005 CAD s/p CABG x3 (CACJ-QQU-tojeae, NCN-EWE-pxecfz, PAH-RO6-xbqntzkw) (2006 at [place]) - Current every day smoker PT SMOKES A PIPE - Diverticulitis Perforated Diverticulitis - Pacemaker 02/16/2017 s/p PPM () 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 - Peritonitis ([facility]) PAST SURGICAL HISTORY Procedure Laterality [...] ED NOTE Observed: 06/17/2017 Status: COMPLETED Source: [place] 9:09 AM [facility] REPOSITORY HNO ID: [id number] Author: Mary KingRn) MITCHELL Larios Service: Emergency [...] ED NOTE Observed: 06/05/2017 Status: COMPLETED Source: [place] 3:56 PM [facility] REPOSITORY HNO ID: [id number] Author: Maribell KingRn) MITCHELL Kan Service: Emergency Medicine Author Type: Registered Nurse Type: ED Notes Filed: 06/05/2017 3:56 PM Note Text: Pt discharge instructions reviewed with patient. Pt does not verbalize any questions or concerns at this time. Pt discharge vitals obtained. Pt IV removed, intact. Pt discharge completed. ED NOTE Observed: 06/05/2017 Status: COMPLETED Source: [place] 3:43 PM [facility] REPOSITORY HNO ID: [id number] Author: Maribell Toth) MITCHELL Kan Service: Emergency Medicine Author Type: Registered Nurse Type: ED Notes Filed: 06/05/2017 3:43 PM Note Text: Pt oob to restroom stable gait PROGRESS Observed: 06/05/2017 Status: COMPLETED Source: [place] 3:23 PM [facility] REPOSITORY HNO ID: [id number] Author: Ro Yoo Service: Colorectal Author Type: [...] Ceballos MD PhD Fellow, Colorectal Surgery Pager [phone] June 05, 2017 3:23 PM PAST MEDICAL HISTORY: PAST MEDICAL HISTORY Diagnosis Date - AAA (abdominal aortic aneurysm) without rupture ([facility]) 05/13/[address] a/p - CAD (coronary artery disease) 2005 CAD s/p CABG x3 (YTTO-KAH-prxadm, DRD-NOS-eiibbz, DBX-FS6-fbvjpssd) (2006 at [place]) - Current every day smoker PT SMOKES A PIPE - Diverticulitis Perforated Diverticulitis - Pacemaker 02/16/2017 s/p PPM () 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 - Peritonitis ([facility]) PAST SURGICAL HISTORY: PAST SURGICAL [...] Charly Ceballos MD PhD (Colorectal Fellow) PAGER: [phone] DATE of SERVICE: June 05, 2017 TIME of SERVICE: 3:23 PM ED NOTE Observed: 06/05/2017 Status: COMPLETED Source: [place] 3:20 PM [facility] REPOSITORY HNO ID: [id number] Author: Maribell Toth) MITCHELL Kan Service: Emergency Medicine Author Type: Registered Nurse Type: ED Notes Filed: 06/05/2017 3:38 PM Note Text: Pt provided urinal HIGH SENS TROPONIN T Collected: 06/05/2017 Status: F Source: [place] 1:17 PM [facility] REPOSITORY TYPE CODE TESTS RESULT [...] day MACE. Performed By: #### HSTNT #### [facility] [address] [place] [address] ED NOTE Observed: 06/05/2017 Status: COMPLETED Source: [place] 12:59 PM [facility] REPOSITORY HNO ID: [id number] Author: Maribell Toth) MITCHELL Kan Service: Emergency Medicine Author Type: Registered Nurse Type: ED Notes Filed: 06/05/2017 12:59 PM Note Text: water at bedside PROGRESS Observed: 06/05/2017 Status: COMPLETED Source: [place] 12:33 PM [facility] REPOSITORY HNO ID: [id number] Author: Hilary Wynn (Rt) Service: Radiology Author Type: Media Account Executive Type: Progress Notes Filed: 06/05/2017 12:33 PM [...] 2V FRONTAL/LAT Observed: 06/05/2017 Status: F Source: [place] 12:31 PM [facility] REPOSITORY * * *Final Report* * * [...] and CABG. IMPRESSION: No acute radiographic abnormality. Geriatric Physical Therapist: PSCB Transcribe Date/Time: Jun 05 2017 12:38P Dictated by : NACHO MORGAN MD This examination was interpreted and the report reviewed and electronically signed by: NACHO MORGAN MD on Jun 05 2017 12:38PM EST [id number] CBC AND DIFFERENTIAL Collected: 06/05/2017 Status: F Source: [place] 12:22 PM [facility] REPOSITORY TYPE CODE TESTS RESULT [...] k/uL Abs Lymph 2.15 LAB AMONO % Wirt% 8.2 LAB AAMONO <0.87 k/uL Abs Wirt High 0.97 LAB AEOS % Eosin% 0.7 LAB AAEOS <0.46 k/uL Abs Eosin 0.08 LAB ABASO % Baso% 0.1 LAB AABASO <0.11 k/uL Abs Baso <0.03 LAB AUNRBC 0 /100 WBC NRBCs 0.0 LAB ABNRBC <0.01 k/uL Absolute nRBC <0.01 LAB DTYP DTYPE Auto Diff Performed By: #### CBCDIF, CMP, HSTNT, MG1 #### [facility] [address] [place] [address] COMP METABOLIC PANEL Collected: 06/05/2017 Status: F Source: [place] 12:22 PM [facility] REPOSITORY TYPE CODE TESTS RESULT OUT OF [...] By: #### CBCDIF, CMP, HSTNT, MG1 #### [facility] [employer] [address] [place], [place] [address] HIGH SENS TROPONIN T Collected: 06/05/2017 Status: F Source: [place] 12:22 PM [facility] REPOSITORY TYPE CODE TESTS RESULT [...] By: #### CBCDIF, CMP, HSTNT, MG1 #### [facility] [employer] [address] [place], [place] [address] MAGNESIUM Collected: 06/05/2017 Status: F Source: [place] 12:22 PM [facility] REPOSITORY TYPE CODE TESTS RESULT OUT OF REFERENCE UNITS RANGE LAB MG 1.7-2.3 mg/dL Magnesium 2.3 Performed By: #### CBCDIF, CMP, HSTNT, MG1 #### [facility] [employer] [address] [place], [place] [address] ED NOTE Observed: 06/05/2017 Status: COMPLETED Source: [place] 12:07 PM [facility] REPOSITORY HNO ID: [id number] Author: Maribell (Rn) MITCHELL Kan Service: Emergency Medicine Author Type: Registered Nurse Type: ED Notes Filed: 06/05/2017 12:07 PM Note Text: Attempt IV placement x1 ED NOTE Observed: 06/05/2017 Status: COMPLETED Source: [place] 12:03 PM [facility] REPOSITORY HNO ID: [id number] Author: Maribell Toth) MITCHELL Kan Service: Emergency [...] PROV NOTE Observed: 06/05/2017 Status: COMPLETED Source: [place] 11:54 AM [facility] REPOSITORY HNO ID: [id number] Author: Courtney Mallory MD Service: Emergency Medicine [...] Chest pain - onset this AM, achy, 12/07, non-radiating. 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 Quality Facilitator note documents patient missing outpt pre-operative planning [...] surgery was consulted. Reduced at bedside by field service consultant, however prolapse recurred. No signs of [...] MD Rich Smith (Res) Cheryl Resident 06/05/17 5537 I evaluated the patient and personally participated [...] MD Date: 06/06/2017 Time: 4:43 PM Courtney Malolry MD 06/06/17 1643 8 Observed: 06/05/2017 Status: COMPLETED Source: [place] 11:47 AM [facility] REPOSIT[facility] HNO ID: [id number] Author: ALEM Rendon Pa-C Service: Emergency Medicine Author Type: Physician Title Insurance Examiner Type: ED Triage Notes Filed: 06/05/2017 11:52 AM Note Text: ED INTAKE NOTE Patient Name: Maxx Knott Service Date: 06/05/17 BRIEF HPI: 66 yo male with PMH significant for CAD (stents 2005), AAA (without rupture), pace maker, diverticulitis (perforated [...] Cardiac Enzymes EKG SIGNATURE: Halima Palomino PA-C ALLERGIES ALLERGIES DATE TYPE / NAME / CODE REACTION SEVERITY SOURCE CODE 05/17/2018 Drug hydrochlorothiazid Angioedema Unknown [place] Allergy/41 e/[id number](RXNOR [facility] [id number]) Repository 05/17/2018 Drug ramipril/[id number] Angioedema Unknown [place] Allergy/41 5(RXNORM) Community 5633358([facility]) Repository 05/17/2018 Drug simvastatin/U18983 Angioedema Unknown [place] Allergy/41 3621(RXNORM) Community 0303381([facility]) Repository 05/17/2018 Drug diclofenac/C825531 Angioedema Unknown [place] Allergy/41 409(RXNORM) Community 7784217([facility]) Repository 05/17/2018 Drug atorvastatin/F0060 Angioedema Unknown [place] Allergy/41 81669(RXNORM) Community 9388728([facility]) Repository 05/17/2018 Drug moxifloxacin/F0060 Angioedema Unknown [place] Allergy/41 05013(RXNORM) Community 1671472([facility]) Repository 05/17/2018 Drug rosuvastatin/F0060 Angioedema Unknown [place] Allergy/41 43765(RXNORM) Community 4821585([facility]) Repository 05/17/2018 Drug ticagrelor/M177698 Shortness of Unknown [place] Allergy/41 611(RXNORM) breath Community 4451762([facility]) Repository 02/19/2018 DRUG ROSUVASTATIN OTHER: SEE C [facility] INGREDI/41 [address] [place] 6881176( Repository OMED CT) 08/09/2017 DRUG TICAGRELOR UNKNOWN [facility] INGREDI/41 [address] [place] 3816822( Repository OMED CT) 07/06/2017 DRUG OTHER OMEGA-3S UNKNOWN [facility] INGREDI/41 [address] [place] 5931562( Repository OMED CT) 12/17/2016 DRUG/74913 ALTASEPTIC UNKNOWN [facility] 1003(SNOME Main [place] D CT) Repository 12/17/2016 DRUG ROSUVASTATIN Myalgia [facility] INGREDI/41 CALCIUM Main [place] 6388655( Repository OMED CT) 12/17/2016 DRUG/79660 AMILORIDE-HYDROCHL SWELLING [facility] 1003(SNOME OROTHIAZIDE Main [place] D CT) Repository 12/17/2016 DRUG RAMIPRIL SWELLING [facility] INGREDI/41 Main [place] 4425040( Repository OMED CT) 12/17/2016 DRUG SIMVASTATIN Myalgia [address] 1034547(SN Repository OMED CT) 12/17/2016 DRUG DICLOFENAC SODIUM UNKNOWN [address] 7648242(SN Repository OMED CT) NG/6767279 ROSUVASTATIN [facility] 06(SNOMED [facility]) Repository DRUG MOXIFLOXACIN SWELLING [address] 4746093(SN Repository OMED CT) NG/1911925 ALTASEPTIC [facility] 06(SNOMED [facility]) Repository NG/6357344 TICAGRELOR [facility] 06(SNOMED [facility]) Repository NG/1619958 ROSUVASTATIN [facility] 06(SNOMED CALCIUM [facility]) Repository NG/4160691 AMILORIDE-HYDROCHL [facility] 06(SNOMED OROTHIAZIDE [facility]) Repository NG/1702973 MOXIFLOXACIN [facility] 06(SNOMED [facility]) Repository NG/7865973 OTHER OMEGA-3S [facility] 06(SNOMED [facility]) Repository NG/4201907 RAMIPRIL [facility] 06(SNOMED [facility]) Repository NG/9012048 SIMVASTATIN [facility] 06(SNOMED [facility]) Repository NG/0610979 DICLOFENAC SODIUM [facility] 06(SNOMED [facility]) Repository ENCOUNTERS ENCOUNTERS ADMIT/DISCHARGE ACCOUNT NUMBER ADMITTING ENCOUNTER LOCATION SOURCE CLASS 05/24/2018/05/24/19 [id number] Emergency [address] Repository 05/24/2018/05/24/19 [id number] Emergency [address] MEDICAL [place]: CWRBed: 05/18/2018/05/18/19 [id number] Emergency [address] Repository 05/18/2018/05/18/19 [id number] Emergency [address] MEDICAL Repository CENTERBuildi ng:AKEDRoom: WRBed: 05/17/2018/05/17/19 [id number] Emergency [address] ding:ED Repository 05/14/2018/05/14/19 [id number] Emergency Building:E2R [place] 19 oom: [address] [facility] Repository 05/14/2018 [id number] Ambulatory [address] [place] [address] Repository 05/05/2018/05/06/19 [id number] Emergency [address] Main [place] Repository 04/21/2018 [id number] Ambulatory BMSBuilding: E[place]ie [facility] Repository 04/20/2018/04/21/20 [id number] Lena Christianson Ambulatory [place] [facility] ding:PCURoom Repository : ILS667Tko: 1 04/20/2018 [id number] Lena Christianson Ambulatory BMSBuilding: Ebonie Rosa Isela BMS.[facility] Repository 04/20/2018 [id number] Lena Christianson Ambulatory BMSBuilding: [place] Rosa Isela BMS.[facility] Repository 04/20/[id number] Repository 04/19/2018/04/20/20 [id number] Ambulatory BuildinER Robert 18 oom: [address] [facility] Repository 04/19/2018/04/19/20 [id number] Emergency Building:E2R Robert 18 oom: [address] [facility] Repository 04/19/2018/04/19/20 [id number] Emergency [address] Repository 04/19/2018/04/19/20 [id number] Emergency [address] MEDICAL Repository [place]:AKEDRoom: OTFBed: 04/19/[id number] Repository 04/19/[id number] Repository 04/13/2018/04/14/[id number] Repository 04/13/2018/04/14/20 [id number] [facility] Inpatient [address] Repository [place]: 4120Bed: 04/13/2018/04/13/20 [id number] Emergency Building:E3R Jones 18 oom: [address] [facility] Repository 04/13/[id number] Repository 04/06/2018/04/07/[id number] Repository 04/06/2018/04/07/20 [id number] [facility] [place] [address] T[facility] M [facility] MEDICAL Repository [place]:AKOURoom: ROUBed: 16 04/05/2018/04/05/20 [id number] Ambulatory UHCBuilding: [place] [address] [facility] GKAD6Qad: Repository [id number] 03/31/2018/03/31/20 [id number] Emergency [address] ding:ED Repository 03/25/2018 [id number] Ambulatory [address] [place] [address] Repository 03/24/2018/03/25/20 [id number] Ambulatory BuildinER Jones 18 oom: [address] [facility] Repository 03/24/2018 [id number] Ambulatory [address] [place] [address] Repository 03/23/2018/03/24/20 [id number] Emergency [address] Other [place] Repository 03/23/2018/03/24/20 [id number] Emergency [address] MEDICAL Repository [facility] ng:AKEDRoom: EMBed: 46 03/08/2018/03/10/20 [id number] FRANCHESCA, Inpatient [address] Encounter [facility] Other [place] Repository 03/08/2018/03/10/20 [id number] MD FRANCHESCA Inpatient [address] MEDICAL Repository [place]: 4201Bed: 01 02/21/2018/02/22/20 [id number] Emergency Building:E2R Jones 18 oom: [address] [facility] Repository 02/21/2018 [id number] Ambulatory [address] [place] [address] Repository 02/19/2018/02/20/20 [id number] Emergency [address] ding:ED Repository 02/17/2018 [id number] Ambulatory [address] [place] [address] Repository 02/16/2018/02/18/20 [id number] Inpatient Building:SCR Jones 18 Encounter oom: [address] [facility] Repository 02/16/2018 [id number] Ambulatory [address] [place] [address] Repository 02/11/2018/02/12/20 [id number] Ambulatory [address] Main [place] Repository 02/07/2018/02/13/20 [id number] CARY, Inpatient [place] 18 EIRAN Z Encounter Clinic Main [place] Repository 02/02/2018/02/04/20 [id number] Ambulatory [address] Other [place] Repository 02/02/2018/02/04/20 [id number] Inpatient DORY [facility] 18 Encounter [facility]AKEDRoom: EMBed: 13 01/29/2018/01/30/20 [id number] Emergency Building:E4R Jones 18 oom: [address] [facility] Repository 01/29/2018 [id number] Ambulatory [address] [place] [address] Repository 01/18/2018/01/20/20 [id number] Inpatient BuildinER Jones 18 Encounter oom: [address] [facility] Repository 01/16/2018 [id number] Ambulatory [address] [place] [address] Repository 12/18/2017/12/19/19 [id number] Emergency Building:EIR Jones 18 oom: [address] [facility] Repository 12/18/2017 [id number] Ambulatory [address] [place] [address] Repository 12/17/2017/12/18/19 [id number] Emergency Ebonie Ebonie[address] ding:ED Repository 12/14/2017 [id number] Ambulatory [address] [place] [address] Repository 12/11/2017/12/15/19 [id number] Inpatient Building:SCR Jones 18 Encounter oom: [address] [facility] Repository 12/10/2017 [id number] Ambulatory [address] [place] [address] Repository 12/09/2017 [id number] Ambulatory [address] [place] [address] Repository 11/30/2017/12/03/19 [id number] NAMRATA, Inpatient [place] [address] MANISH Encounter Clinic Other (RES) [place] Repository 11/30/2017/12/01/19 [id number] Emergency [address] Main [place] Repository 11/28/2017/11/29/19 [id number] Emergency Ebonie Ebonie[address] ding:ED Repository 11/26/2017 [id number] Emergency [facility] Repository ng:H.ED 11/26/2017/11/27/19 [id number] Ambulatory BuildinWR Jones 18 oom: [address] [facility] Repository 11/26/2017 [id number] Ambulatory [address] [place] [address] Repository 11/23/2017/11/24/19 [id number] Emergency [address] ding:ED Repository 11/22/2017 [id number] Emergency [facility] Repository ng:H.ED 11/20/2017 [id number] Emergency [facility] Repository ng:H.ED 11/19/2017/11/20/19 [id number] Emergency Building:E4R Jones 18 oom: [address] [facility] Repository 11/19/2017/11/20/19 [id number] Emergency [address] Repository 11/19/2017 [id number] Ambulatory [address] [place] [address] Repository 11/18/2017/11/19/19 [id number] Emergency [address] ding:ED Repository 11/18/2017/11/19/19 [id number] Emergency [address] Repository 11/18/2017/11/19/19 [id number] Emergency [address] MEDICAL Repository [facility] ng:AKEDRoom: EDBed: 11/17/2017/11/18/19 [id number] Emergency [address] ding:ED Repository 11/11/2017/11/14/19 [id number] Fernie Segundo Inpatient [address] Repository ng:H.7MRoom: 9S705Dsh: 11/07/2017/11/09/19 [id number] Inpatient Building:SCR Jones 18 Encounter oom: [address] [facility] Repository 11/07/2017 [id number] Ambulatory [address] [place] [address] Repository 11/06/2017 [id number] Ambulatory [address] [place] [address] Repository 11/05/2017/11/06/19 [id number] Emergency [address] ding:ED Repository 11/04/2017 [id number] Emergency [facility] Repository ng:H.ED 11/04/2017/11/05/19 [id number] Emergency [address] Repository 11/02/2017/11/03/19 [id number] Emergency [address] ding:ED Repository 11/01/2017/11/02/19 [id number] Emergency [address] ding:ED Repository 10/27/2017/10/28/19 [id number] Emergency [address] Repository 10/27/2017/10/28/19 [id number] Emergency Building:E4R Jones 18 oom: [address] [facility] Repository 10/27/2017 [id number] Ambulatory [address] [place] [address] Repository 10/22/2017 [id number] Emergency [facility] Repository ng:H.ED 10/20/2017/10/21/19 [id number] Emergency [address] ding:ED Repository 10/19/2017/10/20/19 [id number] Inpatient Building:SCR Jones 18 Encounter oom: [address] [facility] Repository 10/17/2017 [id number] Ambulatory [address] [place] [address] Repository 10/09/2017/10/11/19 [id number] Emergency [address] Repository 10/07/2017/10/08/19 [id number] Emergency BBuilding:ER [address] Repository 10/06/2017/10/07/19 [id number] Emergency BBuilding:ER [address] Repository 10/03/2017/10/04/19 [id number] Emergency ABuilding:ER [address] Repository 10/03/2017/10/04/19 [id number] Emergency Building:E2R Jones 18 oom: [address] [facility] Repository 10/03/2017 [id number] Ambulatory [address] [place] [address] Repository 10/02/2017/10/03/19 [id number] Emergency [address] ding:ED Repository 09/30/2017 [id number] Emergency [facility] Repository ng:H.ED 09/24/2017/09/27/19 [id number] Ambulatory Building:SCR Jones 18 oom: [address] [facility] Repository 09/24/2017 [id number] Ambulatory [address] [place] [address] Repository 09/22/2017/09/25/19 [id number] SAMAN, Inpatient Eugene 18 RATNA VILLEGAS Encounter [facility] Repository 09/22/2017/09/25/19 [id number] Rachana AHN. Inpatient AKRON [facility] 18 RATNA Keyes [facility] MEDICAL Repository [place]Build[place] n[place]: 2117Bed: 09/20/2017/09/21/19 [id number] Ambulatory [address] Repository 09/20/2017/09/21/19 [id number] CLEMENTINEWILMAR, Inpatient [place] [address] HANNAH Encounter [facility] Repository 09/19/2017/09/21/19 [id number] Emergency [address] ding:ED Repository 09/18/2017/09/19/19 [id number] Emergency [address] ding:ED Repository 09/16/2017/09/17/19 [id number] Emergency [address] ding:ED Repository 09/14/2017/09/15/19 [id number] Emergency [address] Repository 09/09/2017/09/12/19 [id number] [place], [place] [address] MARANDA [facility] Repository 09/09/2017/09/12/19 [id number] [place], Inpatient SCRON [place] [address] MARANDA J [facility] MEDICAL Repository [place]Buildi nRoom: 2110Bed: 09/01/2017/09/02/19 [id number] Emergency Building:E4R [place] 18 oom: [address] [facility] Repository 09/01/[id number] Repository 08/28/2017/08/29/19 [id number] Emergency [address] Repository 08/16/2017/08/18/19 [id number] JOSE, Ambulatory [address] Repository 08/09/2017/08/13/19 [id number] HALEIGH LACEY Inpatient [place] [address] LUIS E Encounter [facility] Repository 08/09/2017/08/13/19 [id number] HALEIGH LACEY Inpatient AKRON [facility] Rep[facility] [place]Buildi nRoom: 7104Bed: 08/01/2017/08/02/19 [id number] Ambulatory BuildinKR Jones 18 oom: [address] [facility] Repository 08/01/2017 [id number] Ambulatory 9769 [facility] Repository 07/30/2017/07/31/19 [id number] Ambulatory [address] Repository 07/30/2017/07/31/19 [id number] Ambulatory [address] Repository 07/30/2017/07/31/19 [id number] Ambulatory [address] Repository 07/21/2017/07/26/19 [id number] [facility], Inpatient [place] [address] QUSAY Encounter [facility] Repository 07/21/2017/07/26/19 [id number] [facility] Inpatient SCRON [place] [address] [facility] MEDICAL Repository [place]Build nRoom: 9120Bed: 07/14/2017/07/15/19 [id number] Emergency [address] Repository 07/14/2017/07/15/19 [id number] Emergency [address] MEDICAL Repository [place]Build ng:AKEDBRoom : EDBed: 07/06/2017/07/10/19 [id number] Inpatient [place] [address] Encounter [facility] Repository 07/06/2017/07/10/19 [id number] [facility] Inpatient [place] [address] Encounter [facility] MEDICAL Repository [place]LEBuild nRoom: 5105Bed: 07/05/2017/07/06/19 [id number] Ambulatory [address] [place] [address] 18 :[facility]oom: [facility] BHER05 06/25/2017/06/25/19 [id number] Emergency [address] Repository 06/22/2017/06/23/19 [id number] Inpatient BuildinER [place] 18 Encounter oom: [address] [facility] Repository 06/22/2017 [id number] Ambulatory [address] [place] [address] Repository 06/21/2017 [id number] Ambulatory [address] [place] [address] Repository 06/17/2017/06/19/19 [id number] Ro YOO Inpatient [place] [address] RIOS Encounter [facility] Repository 06/05/2017/06/05/19 [id number] Emergency [address] Repository 05/27/2017/05/28/19 [id number] Inpatient Building:[place] [address] Encounter oom: [address] [facility] Repository PAYERS PAYERS ENCOUNTER GUARANTOR PAYER SUBSCRIBER SOURCE 05/24/2018 MAXX B BELLMANDOB: Primary MAXX B [facility] E Insurance:MEDICARE A AND BELLMANDOB: [facility] [address] BPolicy Number: [id number] Repository [place], [place] [id number] [address]Skr: (330) Date: 24 () 05/24/2018 Secondary Insurance:[place] MAXX B [facility]: Health System Number: [id number] Repository [id number] Date: 05/18/2018 MAXX B BELLMANDOB: Primary MAXX B [facility] E Insurance:MEDICARE A AND BELLMANDOB: [facility] [address] BPolicy Number: [id number] Repository [place], [place] [id number] [address]Gqr: (330) Date: 13 () 05/18/2018 Secondary Insurance:[place] MAXX B [facility]: Health System Number: [id number] Repository [id number] Date: 05/17/2018 MAXX B [id number] Primary MAXX B [place] E KAVITHA Insurance:MEDICARE PART BELLMANDOB: [facility] BPolicy Number: [id number] [facility] [address]Ext: (330) [id number] Repository [phone] () Date:2018-05-17 05/17/2018 Secondary Insurance:[place] MAXX B [facility]: [facility] Number: [id number] [facility] [id number] Repository Date:[id number] [facility] [id number] [place], [place] [address]CN: [phone] X2003 05/17/2018 Tertiary Insurance:SELF NOT GIVENUNK Ebonie [facility] Number: Effective Hospital Date:2018-05-17 Repository 05/14/2018 MAXX B BELLMANDOB: Primary MAXX B Jones E Insurance:VETERANS BELLMANDOB: [facility] [address] [id number] [facility] [address], [place] Number: 03 E Repository [address]Umz: [phone]) [id number] Date: [facility] [phone] (HP) [address] [place] [address] 05/14/2018 Secondary MAXX B Jones Insurance:MEDICAREPolicy BELLMANDOB: [facility] Number: [id number] [facility] [id number] 03 E Repository Date: [address], [place] [address] 05/14/2018 MAXX BELLMANDOB: Primary MAXX University E Insurance:MedicarePolicy BELLMANDOB: [facility] APT Number: [id number] Repository [place], [place] [id number] 03 E [address]Xlk: (330) Date:Plan Name:[facility] [phone] (HP) [address], [place] [address]Lik: (HP) 05/14/2018 Secondary MAXX University Insurance:MedicarePolicy [facility] Number: [id number] Repository [id number] 03 E Date:Plan Name:[facility] Hospital[facility] Cor[facility]igan [facility] [address], [place] [address]Ray: (HP) 05/14/2018 Tertiary MAXX University Insurance:CommercialPoli BELLMANDOB: [facility] cy Number: [id number] Repository [id number] 03 E Date:Plan Name:[facility] [address], [place] [address]Aob: (HP) 04/21/2018 MAXX B CHEVY Primary Insurance:[place] MAXX B Ebonie [facility]: [place] Number: [id number] Hospital [address]Xxs: 330 [id number] Repository [phone] () Date:[id number] SERVICE [id number] [place], [place] [address]ZB: [phone] X2003 04/21/2018 Secondary MAXX B [place] Insurance:MEDICARE PART BELLMANDOB: [facility] A BPolicy Number: [id number] Hospital [id number] Repository Date:2018-04-20 04/21/2018 Tertiary Insurance:SELF NOT GIVENUNK [place] PAY INSURANCEPolicy Community Number: Effective Hospital Date:2018-04-21 Repository 04/20/2018 MAXX B [id number] Primary Insurance:DC [facility]XX [facility] [place] Number: [id number] Hospital [address]Hww: 330 [id number] Repository [phone] () Date:[id number] SERVICE [id number] [place], [place] [address]SG: [phone] X2003 04/20/2018 Secondary MAXX B E[place] Insurance:MEDICARE PART [facility]: [facility] A BPolicy Number: [id number] Hospital [id number] Repository Date:2018-04-20 04/20/2018 Tertiary Insurance:SELF NOT GIVENUNK [place] PAY INSURANCEPolicy Community Number: Effective Hospital Date:2018-04-20 Repository 04/20/2018 MAXX B [id number] Primary MAXX B E[place]ie E [place] Insurance:MEDICARE PART COLUMBIAMANDOB: [place] A BPolicy Number: [id number] Hospital [address]Gxs: 330 [id number] Repository [phone] () Date:2018-04-20 04/20/2018 Secondary Insurance:SELF NOT GIVENUNK [place] PAY INSURANCEPolicy Community Number: Effective Hospital Date:2018-04-20 Repository 04/20/2018 MAXX B [id number] Primary MXAX B [place]bonie E [place] Insurance:MEDICARE PART BELLMANDOB: [place] A BPolicy Number: [id number] Hospital [address]Wuo: [phone] [id number] Repository [phone] (HP) Date:2018-04-20 04/20/2018 Secondary Insurance:SELF NOT GIVENUNK [place] PAY INSURANCEPoly [facility] Number: Effective Hospital Date:2018-04-20 Repository 04/20/2018 MAXX B BELLMANDOB: Primary MAXX B University E Insurance:MedicarePolicy BELLMANDOB: [facility] [address] Number: [id number] Repository [address] [place] [address] [id number] 03 E [id number]: (494) Date:Plan Name:[facility] [address] [phone] () [address] [place] [address] [phone]: (HP) 04/20/2018 Secondary MAXX B University Insurance:MedicarePolicy COLUMBIAMANDOB: Hospitals Number: [id number] Repository [id number] 03 E Date:Plan Name:Deepthi Corr[address] [place] [phone]: (HP) 04/20/2018 Tertiary MAXX B University Insurance:Veterans BELLMANDOB: [facility] [id number] Repository HealthPolicy Number: 03 [id number] Date:Plan Name:Health [address] [place] [address] [phone]: (HP) 04/19/2018 MAXX B BELLMANDOB: Primary MAXX B Jones E Insurance:VETERANS BELLMANDOB: [facility] [address] [facility] [id number] [address] Number: 03 E Repository [address]Nkh: (522) [id number] Date: [address] [phone] (HP) [address], [place] [address] 04/19/2018 Secondary MAXX B Jones Insurance:MEDICAREPolicy BELLMANDOB: [facility] Number: [id number] [facility] [id number] 03 E Repository Date: [facility] [address], [place] [address] 04/19/2018 MAXX B BELLMANDOB: Primary MAXX B Jones E Insurance:[facility]ITAL[facility]: [facility] [id number] [place] [address] Number: 03 E Repository [address]Sum: (330) [id number] Date: [facility] [phone] (HP) [address] [place] [address] 04/19/2018 Secondary MAXX B Jones Insurance:MEDICAREPolicy BELLMANDOB: [facility] Number: [id number] [facility] [id number] 03 E Repository Date: [facility] [address] [place] [address] 04/19/2018 MAXX B BELLMANDOB: Primary MAXX B [facility] E Insurance:MEDICARE A AND [facility]OB: [facility] BPolic Number: [id number] Repository [address] [place] [address] [id number] [phone]: [phone]) Date: [phone] (HP) 04/19/2018 Secondary Insurance:[place] MAXX B [facility] Number: [id number] Repository [id number] Date: 04/19/2018 MAXX BELLMANDOB: Primary MAXX University E Insurance:MedicarePolicy BELLMANDOB: [facility] APT Number: [id number] Repository [address] [place] [address] [id number] 03 E [phone]: (330) Date:Plan Name:Deepthi Keyes [facility] [phone] (HP) [address] [place] [address]Aui: (HP) 04/19/2018 Secondary MAXX University Insurance:MedicarePolicy BELLMANDOB: Hospitals Number: [id number] Repository [id number] 03 E Date:Plan Name:[facility] [address], [place] [address]Riv: (HP) 04/19/2018 Tertiary MAXX University Insurance:CommercialPoli BELLMANDOB: Hospitals cy Number: [id number] Repository [id number] 03 E Date:Plan Name:Health [address], [place] [address]Xna: (HP) 04/19/2018 MAXX BELLMANDOB: Primary MAXX University E Insurance:MedicareRockefeller War Demonstration HospitalMANDOB: [facility] [address] Number: [id number] Repository [address], [place] [id number] 03 E [address]Udj: (330) Date:Plan Name:[address] [phone] (HP) [address], [place] [address]Lsu: (HP) 04/19/2018 Secondary MAXX University Insurance:MedicarePolicy BELLMANDOB: Hospitals Number: [id number] Repository [id number] 03 E Date:Plan Name:[facility] [address], [place] [address]Nsd: (HP) 04/19/2018 Tertiary MAXX University Insurance:CommercialPoli BELLMANDOB: Hospitals cy Number: [id number] Repository [id number] 03 E Date:Plan Name:[facility] [address], [place] [address]Rny: (HP) 04/13/2018 MAXX B BELLMANDOB: Primary MAXX B [facility] E Insurance:MEDICARE A AND BELLMANDOB: Health [facility] BPolicy Number: [id number] Repository [address], [place] [id number] [address]Ahh: (330) Date: [phone] (HP) 04/13/2018 MAXX B BELLMANDOB: Primary MAXX B Jones E Insurance:[facility]OSPITALOB: [facility] [id number] Hospital [facility] [place] Number: 03 E Repository [address]Twe: (330) [id number] Date: [facility] [phone] (HP) [address] [address] 04/13/2018 Secondary MAXX B Jones Insurance:MEDICAREPolicy BELLMANDOB: [facility] Number: [id number] Hospital [id number] 03 E Repository Date: [facility] [address], [place] [address] 04/13/2018 MAXX B BELLMANDOB: Primary MAXX B University E Insurance:MedicarePolicy BELLMANDOB: [facility] APT Number: [id number] Repository [place], [place] [id number] 03 E [address]Ous: (330) Date:Plan Name:[facility] [phone] (HP) [address], [place] [address]Ubx: (HP) 04/13/2018 Secondary MAXX B University Insurance:MedicarePolicy BELLMANDOB: Hospitals Number: [id number] Repository [id number] 03 E Date:Plan Name:Mcare B [facility] [address], [place] [address]Gcf: (HP) 04/06/2018 MAXX B BELLMANDOB: Primary MAXX B [facility] E Insurance:MEDICARE A AND [facility]OSPITALOB: [facility] BPolicy Number: [id number] Repository [place], [place] [id number] [address]Ncn: (330) Date: [phone] (HP) 04/05/2018 MAXX B BELLMANDOB: Primary MAXX B University E Insurance:Veterans [facility]OSPITALOB: [facility] APT Administration [id number] Repository [address] [place], [place] [address] HealthPolicy Number: 03 E [id number]: (026) [id number] [facility] [phone] () Date:Plan Name:Health [address] [place] [phone]: (HP) 03/31/2018 MAXX B [id number] Primary MAXX B [place] Insurance:MEDICARE PART [facility]OSPITAL[facility]: [place] A [facility] Number: [id number] [place] [facility] [address]Hev: (606) [id number] Repository [phone] () Date:2018-03-31 03/31/2018 Secondary Insurance:[facility]: Community Number: [id number] [place] [facility] [id number] Repository Date:[id number] SERVICE [id number] [place], [place] [address]EM: [phone] X2003 03/31/2018 Tertiary Insurance:[facility] INSURANCEPolicy Community Number: Effective Hospital Date:2018-03-31 Repository 03/25/2018 MAXX B BELLMANDOB: Primary MAXX B [place] E Insurance:MedicarePolicy BELLMANDOB: [facility] APT Number: [id number] Repository [address] [place] [address] [id number] 03 E [id number]: (330) Date:Plan Name:[facility] [phone] () [address] [place] [phone]: (HP) 03/25/2018 Secondary MAXX B University Insurance:MedicarePolicy BELLMANDOB: Hospitals Number: [id number] Repository [id number] 03 E Date:Plan Name:[facility], [place] [phone]: (HP) 03/25/2018 Tertiary MAXX B University Insurance:Veterans [facility]ITALOB: [facility] [id number] Repository [facility] HospitalPolicy Number: 03 E [id number] Date:Plan Name:Health [address] [place] [phone]: (HP) 03/24/2018 MAXX B BELLMANDOB: Primary MAXX B Jones E Insurance:[facility]OSPITALOB: [facility] A[address] [facility] [id number] [address] Number: 03 E Repository [address]Kmf: (417) [id number] Date: [address] [phone] (HP) [address] [place] [address] 03/24/2018 Secondary MAXX B Jones Insurance:MEDICAREPolicy BELLMANDOB: [facility] Number: [id number] [facility] [id number] 03 E Repository Date: [address] [place] [address] 03/24/2018 MAXX B BELLMANDOB: Primary MAXX B University E Insurance:MedicarePolicy BELLMANDOB: [facility] APT Number: [id number] Repository [address] [place] [address] [id number] 03 E [address]Cdq: (330) Date:Plan Name:[address] [phone] (HP) [address], [place] [address]Vli: (HP) 03/24/2018 Secondary MAXX B University Insurance:MedicarePolicy COLUMBIAMANDOB: [facility] Number: [id number] Repository [id number] 03 E Date:Plan Name:[facility], [place] [address]Xue: (HP) 03/24/2018 Tertiary MAXX B University Insurance:CommercialPoli BELLMANDOB: [facility] cy Number: [id number] Repository [id number] 03 E Date:Plan Name:[facility] [address] [place] [address]Axs: (HP) 03/23/2018 MAXX B BELLMANDOB: Primary MAXX B [facility] E Insurance:MEDICARE A AND BELLMANDOB: [facility] BPolicy Number: [id number] Repository [address] [place] [address] [id number] 386[address]Jga: (330) Date: [phone] (HP) 03/08/2018 MAXX B BELLMANDOB: Primary MAXX B [facility] E Insurance:MEDICARE A AND BELLMANDOB: [facility]Policy Number: [id number] Repository [address] [place] [address] [id number] 89046Pcd: (330) Date: [phone] (HP) 02/21/2018 MAXX B BELLMANDOB: Primary MAXX B Jones E Insurance:[facility] HOSPITALOB: [facility] APT [facility] [id number] [address] Number: 03 E Repository [address]Gps: 330 [id number] Date: [facility] [phone] () [address] [place] [address] 66763 02/21/2018 Secondary MAXX B Jones Insurance:MEDICAREPolicy BELLMANDOB: [facility] Number: [id number] [facility] [id number] 03 E Repository Date: [facility] [address] [place] [address] 22863 02/21/2018 MAXX B BELLMANDOB: Primary MAXX B University E Insurance:MedicarePolicy BELLMANDOB: [facility] APT Number: [id number] Repository [address] [place] [address] [id number] 03 E 79226Sgj: (154) Date:Plan Name:Deepthi [address] [phone] () [address], [place] [address]Cfw: (HP) 02/21/2018 Secondary MAXX B University Insurance:MedicarePolicy BELLMANDOB: Hospitals Number: [id number] Repository [id number] 03 E Date:Plan Name:Deepthi [address] [place], [place] [address], [place] [address]Nsq: (HP) 02/21/2018 Tertiary MAXX B University Insurance:Veterans [facility]OB: Hospitals Administration [id number] Repository HealthPolicy Number: 03 E [id number] [address] Date:Plan Name:Health [address] [place] [address] 94[address]Hyl: () 02/19/2018 MAXX [place] [address] Primary MAXX B Ebonie E [place] Insurance:MEDICARE PART [facility] HOSPITALOB: [place] BPolicy Number: [id number] Hospital [address]Tnl: ([phone]) [id number] Repository [phone] () Date:2018-02-19 02/19/2018 Secondary Insurance:[facility] CenterOB: Community Number: [id number] [facility] [id number] Repository Date:1577-82-90REH SERVICE [id number] [place], [place] [address]SJ: [phone] X2003 02/19/2018 Tertiary Insurance:SELF NOT [facility]ENLind[facility] Community Number: Effective Hospital Date:2018-02-19 Repository 02/17/2018 MAXX BELLMANDOB: Primary MAXX University E Insurance:MedicarePolRutgers - University Behavioral HealthCareOB: [facility] [address] Number: [id number] Repository [address] [place] [address] [id number] 03 E [address]98[address]Vww: (973) Date:Plan Name:Deepthi [address] [phone] (HP) [address], [place] [address]Ddg: (HP) 02/17/2018 Secondary MAXX University Insurance:MedicarePolicy COLUMBIAMANDOB: [facility] Number: [id number] Repository [id number] 03 E Date:Plan Name:Deepthi [address], [place] [address]Pmq: (HP) 02/17/2018 Tertiary MAXX University Insurance:Veterans COLUMBIAMANDOB: [facility] [id number] Repository HealthPolicy Number: 03 E [id number] [address] Date:Plan Name:Health [address] [place] [address] 23216Xiw: (HP) 02/16/2018 MAXX B BELLMANDOB: Primary MAXX B Jones E Insurance:MEDICAREPolicy BELLMANDOB: [facility] Number: [id number] Hospital [address] [place] [address] [id number] 03 E Repository 159[address]Hqj: (330) Date: [address] [phone] (HP) [address], [place] [address] 02/16/2018 Secondary MAXX B Jones Insurance:MEDICAREPolicy BELLMANDOB: [facility] Number: [id number] [facility] [id number] 03 E Repository Date: [address] [place] [address] 101[address] 02/16/2018 MAXX BELLMANDOB: Primary MAXX University E Insurance:MedicarePolicy COLUMBIAMANDOB: [facility] APT Number: [id number] Repository [address] [place] [address] [id number] 03 E 237[address]Qra: (330) Date:Plan Name:Deepthi [address] [phone] (HP) [address], [place] [address]Ovd: (HP) 02/16/2018 Secondary MAXX University Insurance:MedicarePolicy COLUMBIAMANDOB: Hospitals Number: [id number] Repository [id number] 03 E Date:Plan Name:Deepthi [address] [place] [address]Xhb: (HP) 02/16/2018 [facility] Insurance:Veterans BELLMANDOB: [facility] Administration [id number] Repository HealthPolicy Number: 03 E [id number] [address] Date:Plan Name:Health [address] [place] [address] 16691Qqe: (HP) 02/02/2018 MAXX B BELLMANDOB: Primary MAXX B [facility] E Insurance:MEDICARE A AND BELLMANDOB: [facility] [address]APT BPolicy Number: [id number] Repository [address] [place] [address] [id number] 932[address]Gpu: (330) Date: [phone] (HP) 01/29/2018 MAXX B BELLMANDOB: Primary MAXX B Jones E Insurance:VETERANS COLUMBIAMANDOB: [facility] AVE APT [facility] [id number] [address] Number: 03 E Repository [address]18[address]Tqb: (718) [id number] Date: [address] [phone] (HP) [address] [place] [address] 66[address] 01/29/2018 Secondary MAXX B Jones Insurance:MEDICAREPoly BELLMANDOB: [facility] Number: [id number] Hospital [id number] 03 E Repository Date: [facility] [place] [address] 22588 01/29/2018 MAXX BELLMANDOB: Primary MAXX University E Insurance:MedicarePolicy BELLMANDOB: [facility]T Number: [id number] Repository [address] [place] [address] [id number] 03 E 058[address]Dvp: (330) Date:Plan Name:Deepthi [address] [phone] (HP) [address], [place] [address]Oap: (HP) 01/29/2018 Secondary MAXX University Insurance:MedicarePolicy COLUMBIAMANDOB: Hospitals Number: [id number] Repository [id number] 03 E Date:Plan Name:Deepthi Corr[address], [place] [address]Mhg: (HP) 01/29/2018 Tertiary MAXX University Insurance:CommercialPoli COLUMBIAMANDOB: [facility] cy Number: [id number] Repository [id number] 03 E Date:Plan Name:[facility] [address], [place] [address]Ask: (HP) 01/18/2018 MAXX B BELLMANDOB: Primary MAXX B Jones E Insurance:[facility] COUNTR[facility]IDE HOSPITALOB: [facility] [id number] [address] Number: 03 E Repository [address]Qdl: (042) [id number] Date: [address] [phone] (HP) [address], [place] [address] 01/18/2018 Secondary MAXX B Jones Insurance:MEDICAREPolicLake County Memorial Hospital - WestMANDOB: Memorial Number: [id number] [facility] [id number] 03 E Repository Date: [facility] [address] [address] 01/16/2018 MAXX BELLMANDOB: Primary MAXX University E Insurance:MedicarePolicLake County Memorial Hospital - WestMANDOB: [facility] APT Number: [id number] Repository [address] [place] [address] [id number] 03 E 04[address]Tkr: (330) Date:Plan Name:[address]thi [address] [phone] (HP) [address], [place] [address]Mxr: (HP) 01/16/2018 Secondary MAXX University Insurance:MedicarePolicy BELLMANDOB: Hospitals Number: [id number] Repository [id number] 03 E Date:Plan Name:Deepthi [address], [place] [address]Yqk: (HP) 12/18/2017 MAXX B BELLMANDOB: Primary MAXX B Jones E Insurance:MEDICAREPolicy BELLMANDOB: [facility] APT Number: [id number] Hospital [address] [place] [address] [id number] 03 E Repository 47[address]Dcq: (330) Date: [address] [phone] (HP) [address], [place] [address] 12/18/2017 Secondary MAXX B Jones Insurance:MEDICAREPolicy BELLMANDOB: [facility] Number: [id number] Hospital [id number] 03 E Repository Date: [address], [place] [address] 12/18/2017 Tertiary MAXX B Jones Insurance:AVERA HOLY FAMILY HOSPITALMANDOB: [facility] [id number] Hospital Number: 03 E Repository [id number] Date: [address] [address] 12/18/2017 MAXX BELLMANDOB: Primary MAXX University E Insurance:MedicarePolicy BELLMANDOB: [facility] APT Number: [id number] Repository [address], [place] [id number] 03 E [address]Kbi: (330) Date:Plan Name:Deepthi [address] [phone] (HP) [address], [place] [address]Ern: (HP) 12/18/2017 Secondary MAXX University Insurance:MedicarePolicy BELLMANDOB: Hospitals Number: [id number] Repository [id number] 03 E Date:Plan Name:Deepthi [address] [place] [place] [address]Usy: (HP) 12/18/2017 Tertiary MAXX University Insurance:CommercialPoli COLUMBIAMANDOB: [facility] cy Number: [id number] Repository [id number] 03 E Date:Plan Name:[facility] [address] [place] [address]Qhp: (HP) 12/17/2017 MAXX B [id number] Primary MAXX [facility] Insurance:MEDICARE PART [place]BIAMANDOB: [place] [facility] Number: [id number] [facility] [address]Wuh: (646) [id number] Repository [phone] (HP) Date:2017-12-17 12/17/2017 Secondary Insurance:[facility] CenterOB: [facility] Number: [id number] [place] [facility] [id number] Repository Date:5201-10-40QJK SERVICE [id number] [place], [place] [address]BL: [phone] X2003 12/17/2017 Tertiary Insurance:SELF NOT [facility]IVENMer[facility] Center INSURANCEPenn [facility]lands Healthcare Community Number: Effective Hospital Date:2017-12-17 Repository 12/14/2017 MAXX BELLMANDOB: Primary MAXX University E Insurance:MedicarePolicCarilion ClinicOB: [facility] APT Number: [id number] Repository [address], [place] [id number] 03 E [address]Cwj: (681) Date:Plan Name:[facility] Wali [facility] [phone] (HP) [address], [place] [address]Icg: (HP) 12/14/2017 Secondary MAXX University Insurance:MedicarePolicy BELLMANDOB: Hospitals Number: [id number] Repository [id number] 03 E Date:Plan Name:[facility] Shekhar [facility] [address], [place] [address]Kev: (HP) 12/14/2017 Tertiary MAXX University Insurance:CommercialPoli COLUMBIAMANDOB: [facility] cy Number: [id number] Repository [id number] 03 E Date:Plan Name:[facility] [address], [place] [address]Hfo: (HP) 12/11/2017 MAXX B BELLMANDOB: Primary MAXX B Jones E Insurance:MEDICAREPolicy BELLMANDOB: [facility] AP[facility] Number: [id number] Hospital [address] [id number] 03 E Repository [address]Eik: (330) Date: [facility] [address] [phone] (HP) [address], [place] [address] 12/11/2017 Secondary MAXX B Jones Insurance:MEDICARESage Memorial HospitalicLake County Memorial Hospital - WestMANDOB: [facility] Number: [id number] [facility] [id number] 03 E Repository Date: [facility] [address], [place] [address] 12/11/2017 Tertiary MAXX B Jones Insurance:VETERANS BELLMANDOB: [facility] [id number] Hospital Number: 03 E Repository [id number] Date: [facility] [address] [address] [address], [place] [address] 12/10/2017 MAXX BELLMANDOB: Primary MAXX University E Insurance:MedicarePolicy BELLMANDOB: [facility] APT Number: [id number] Repository [address], [place] [id number] 03 E [address]Gmz: (330) Date:Plan Name:[facility] A [address] [phone] (HP) [address], [place] [address]Rck: (HP) 12/10/2017 Secondary MAXX University Insurance:MedicareSage Memorial Hospitalicy BELLMANDOB: Hospitals Number: [id number] Repository [id number] 03 E Date:Plan Name:[facility]keon B [address], [place] [address]Plo: (HP) 12/10/2017 Tertiary MAXX University Insurance:CommercialPoli BELLMANDOB: [facility] cy Number: [id number] Repository [id number] 03 E Date:Plan Name:Health [address] MED[facility] [place]ENTERIRW[place] [address]Nui: (HP) 12/09/2017 MAXX BELLMANDOB: Primary MAXX University E Insurance:MedicareUniversity of Pittsburgh Medical CenterOB: [facility] AVE APT Number: [id number] Repository [address], [place] [id number] 03 E [address]Gox: (011) Date:Plan Name:[facility] A [address] [phone] (HP) [address], [place] [address]Dxy: (HP) 12/09/2017 Secondary [facility] Insurance:MedicareUniversity of Pittsburgh Medical CenterOB: Hospitals Number: [id number] Repository [id number] 03 E Date:Plan Name:[facility] She[address], [place] [address]Lxm: (HP) 12/09/2017 Tertiary [facility] Insurance:CommercialPoli [facility]PA[facility] HOSPITALOB: Hospitals cy Number: [id number] Repository [id number] 03 E Date:Plan Name:[facility] [address], [place] [address]Vrf: (HP) 11/28/2017 MAXX Shekhar [id number] Primary MAXX B [place] E [place] Insurance:MEDICARE PART COLUMBIAMANDOB: [facility] BPolicy Number: [id number] [facility] [address]Lsh: (194) [id number] Repository [phone] (HP) Date:2017-11-28 11/28/2017 Secondary Insurance:DC MAXX B EbonieLegacy HealthOB: [facility] Number: [id number] [facility] [id number] Repository Date:0767-96-89PTO SERVICE [id number] [place], [place] [address]XO: [phone] X2003 11/28/2017 Tertiary Insurance:SELF NOT GIVENUNK [place] [facility] INSURANCEPenn Highlands Healthcare Community Number: Effective Hospital Date:2017-11-28 Repository 11/26/2017 MAXX B [id number] Primary MAXX B [facility] Insurance:MEDICAREPolicy BELLMANUNK [place] [address], Number: Repository [place] [address]Blb: (190) [id number] [phone] (HP) Date:2009-02-28 [address]SUSJ CODE PN016JOOBUHTQMCHENRY, [place] [address]NY: 11/26/2017 Secondary MAXX B [facility] Insurance:Zachery Allison [facility] Number: Repository [id number] Date: [facility] SloanN:Fee Service mailstop [address] [place] [address]NB: 7384 11/26/2017 MAXX B BELLMANDOB: Primary MAXX B Jones E Insurance:MEDICAREPolicy BELLMANDOB: [facility] APT Number: [id number] [address] [id number] 03 E Repository [address]Evt: (330) Date: [facility] [address] (HP) [address], [place] [address] 11/26/2017 Secondary MAXX B Jones Insurance:MEDICAREPolicy BELLMANDOB: [facility] Number: [id number] Hospital [id number] 03 E Repository Date: [facility] [address] [place] [address] 11/26/2017 MAXX BELLMANDOB: Primary MAXX University E Insurance:MedicarePolicy BELLMANDOB: [facility] APT Number: [id number] Repository [address] [place] [address] [id number] 03 E [address]Sgu: (330) Date:Plan Name:Deepthi [facility] [phone] (HP) [address], [place] [address]Xpg: () 11/26/2017 Secondary MAXX University Insurance:MedicarePolicy BELLMANDOB: Hospitals Number: [id number] Repository [id number] 03 E Date:Plan Name:[address]thi [address], [place] [address]Fud: () 11/23/2017 MAXX B [id number] Primary MAXX B [place] E [place] Insurance:MEDICARE PART [facility]: [place] BPlifecare hospital of mechanics[facility] Number: [id number] Hospital [address]Tlq: (537) [id number] Repository [phone] () Date:2017-11-23 11/23/2017 Secondary Insurance:DC [facility] Community Number: [id number] Hospital [id number] Repository Date:7026-72-46HDI SERVICE [id number] [place], [place] [address]QS: [phone] X2003 11/23/2017 Tertiary Insurance:SELF NOT GIVENCORRIGAN MENTAL [facility] [place] PAY [facility] Community Number: Effective Hospital Date:2017-11-23 Repository 11/22/2017 MAXX B [id number] Primary Insurance:Zachery [facility] E PHILLYMERRYCHRISTIANO BARRETO [facility] [address], Number: Repository [place] [address]Tfu: 330 [id number] [phone] () Date: [facility]:Fee Service mailstop [place], [place] [address]TM: 7306 11/22/2017 Secondary MAXX B [facility] Insurance:MEDICAREPolicy BELLMANUNK [facility] [place] Number: Repository [id number] Date:2009-02-28 [address]GPJK CODE LA628TMDSZAQGMCHENRY, [place] [address]FB: 11/20/2017 MAXX B [id number] Primary Insurance:Zachery [facility] E PHILLYMERRYCHRISTIANO [address]RETO [facility] [address], Number: Repository [place] [address]Cgr: (303) [id number] [phone] (HP) Date: [facility] Conrad:Fee Service mailstop [address] [place] [address], [place] [address]UB: 7306 11/20/2017 Secondary MAXX B [facility] Insurance:MEDICAREPolicy BELLMANUNK [place] Number: Repository [id number] Date:2009-02-28 [address]AFNG CODE KL543JUSZTRKGMCHENRY, [place] [address]JS: 11/19/2017 MAXX B BELLMANDOB: Primary MAXX B Jones E Insurance:MEDICAREPolicy BELLMANDOB: [facility] APT Number: [id number] Hospital [address] [place] [address] [id number] 03 E Repository [address]Jsx: (330) Date: [facility] [phone] (HP) [address] [place] [address] 11/19/2017 Secondary MAXX B Jones Insurance:MEDICAREPolicy BELLMANDOB: [facility] Number: [id number] Hospital [id number] 03 E Repository Date: [facility] [address], [place] [address] 11/19/2017 MAXX BELLMANDOB: Primary MAXX University E Insurance:MedicarePolicy BELLMANDOB: [facility] APT Number: [id number] Repository [address] [place] [address] [id number] 03 E [address]Lan: (330) Date:Plan Name:Deepthi Keyes [facility]ERE [phone] (HP) [address], [place] [address]Jub: (HP) 11/19/2017 Secondary MAXX University Insurance:MedicarePolicy BELLMANDOB: Hospitals Number: [id number] Repository [id number] 03 E Date:Plan Name[facility] [address], [place] [address]Jqz: (HP) 11/19/2017 Tertiary [facility] Insurance:[facility]: [facility] cy Number: [id number] Repository [id number] 03 E Date:Plan Name:[facility] [address], [place] [address]Llx: (HP) 11/18/2017 MAXX B [id number] Primary MAXX B [place] E [place] Insurance:MEDICARE PART [facility]: [place] BPolicy Number: [id number] [facility] [address]Hvr: (782) [id number] Repository [phone] () Date:2017-11-18 11/18/2017 Secondary Insurance:[facility]: Community Number: [id number] [facility] [id number] Repository Date:7593-87-38KTY SERVICE [id number] [place], [place] [address]KR: [phone] X2003 11/18/2017 Tertiary Insurance:SELF NOT GIVENMeritus Medical Center INSURANCESt. Luke'S University Health Networky Community Number: Effective Hospital Date:2017-11-18 Repository 11/18/2017 MAXX B COLUMBIAMANDOB: Primary MAXX B [facility] E Insurance:MEDICARE A AND [facility]: Health System [address] BPolicy Number: [id number] Repository [address], [place] [id number] [address]Boy: (957) Date: [phone] () 11/18/2017 Secondary Insurance:[facility]: Health System Number: [id number] Repository [id number] Date: 11/17/2017 MAXX B [id number] Primary MAXX B Ebonie E [place] Insurance:MEDICARE PART RAPPAHANNOCK GENERAL HOSPITALOB: [facility] BPolicy Number: [id number] [facility] [address]Hdz: (574) [id number] Repository [phone] () Date:2017-11-17 11/17/2017 Secondary Insurance:SELF NOT GIVENUNK [place] [facility] Number: Effective Hospital Date:2017-11-17 Repository 11/11/2017 MAXX B CHEVY Primary Insurance:Zachery MAXX [facility] Medical E [address] [facility] [address], Number: Repository [place] [address]Pyj: (099) [id number] [phone] () Date: [facility] Conrad:Fee Service mailstop [address] [place] [address]GC: 7340 11/11/2017 Secondary MAXX B [facility] Insurance:MEDICAREPolicy BELLMANUNK [facility] [place] Number: Repository [id number] Date:2009-02-28P [address] CODE OU640JZECUUXOMCHENRY, [place] [address]SU: 11/07/2017 MAXX B BELLMANDOB: Primary MAXX B Jones E Insurance:MEDICAREPolicy BELLMANDOB: [facility] CenterLIZZ [address] Number: [id number] [address] [id number] 03 E Repository [address]Ipg: 330) Date: [phone] () [address] [address] 11/07/2017 Secondary MAXX B Jones Insurance:MEDICAREPolicy BELLMANDOB: [facility] Number: [id number] [facility] [id number] 03 E Repository Date: [address], [place] [address] 11/07/2017 Tertiary MAXX B Jones Insurance:VETERANS BELLMANDOB: [facility] [id number] Hospital Number: 03 E Repository [id number] Date: [address], [place] [address] 11/07/2017 MAXX BELLMANDOB: Primary MAXX University E Insurance:MedicarePolicy BELLMANDOB: [facility] A[address] APT Number: [id number] Repository 60PrincessWHITE M[facility] MED[facility] CENTERIRWINKANS[place] [id number] 03 E [address]Twr: (330) Date:Plan Name:Deepthi [address] [phone] (HP) [address], [place] [address]Knt: (HP) 11/07/2017 Secondary MAXX University Insurance:MedicarePolicy BELLMANDOB: Hospitals Number: [id number] Repository [id number] 03 E Date:Plan Name:Deepthi [address], [place] [address]Irv: (HP) 11/07/2017 Tertiary MAXX University Insurance:[facility]OB: [facility] [id number] Repository HealthPolicy Number: 03 E [id number] Date:Plan Name:Health [address], [place] [address]Wsr: (HP) 11/06/2017 MAXX RAPPAHANNOCK GENERAL HOSPITALOB: Primary MAXX University E Insurance:MedicarePolicy BELLMANDOB: [facility] A[address]T Number: [id number] Repository 60PrincessWHITE MOUNTAIN REG[facility]AL MEDICAL CENTERIRWINKANS[place], [place] [id number] 03 E [id number]: (330) Date:Plan Name:Deepthi [id number] (HP) [address], [place] [address]Bvs: (HP) 11/06/2017 Secondary MAXX University Insurance:MedicarePolicy BELLMANDOB: Hospitals Number: [id number] Repository [id number] E Date:Plan Name:Deepthi [address], [place] [address]Eqd: (HP) 11/05/2017 MAXX B [id number] Primary MAXX B [place]ie E [place] Insurance:MEDICARE PART BELLMANDOB: [place] BPolicy Number: [id number] [address]Txj: [phone] [id number] Repository [phone] () Date:2017-11-05 11/05/2017 Secondary Insurance:SELF NOT GIVENUNK [place] [facility]Y [facility] Number: Effective Hospital Date:2017-11-05 Repository 11/04/2017 MAXX B [id number] Primary Insurance:Zachery MAXX B [facility] [address] [facility] [address], Number: Repository al [id number]: [phone] [phone] () Date: [facility] Conrad:Fee Service mailstop [address], [place] [address]TU: 7306 11/04/2017 Secondary MAXX B [facility] Insurance:MEDICAREPolicy [place] [facility] [place] Number: Repository [id number] Date:2009[birth year]02[birth year]28 [address] CODE BV262QDBIHRYIMCHENRY, [place] [address]HY: 11/02/2017 MAXX B [id number] Primary MAXX B [place] E [place] Insurance:MEDICARE PART [place]: [place] BPolicy Number: [id number] Hospital [address]Pyt: 330 [id number] Repository [phone] () Date:2017-11-02 11/02/2017 Secondary Insurance:SELF NOT GIVENUNK [place] [facility] Number: Effective Hospital Date:2017-11-02 Repository 11/01/2017 MAXX B [id number] Primary MAXX B Ebonie E [place] Insurance:MEDICARE PART [place] BPolicy Number: [id number] Hospital [address]Bcb: (935) [id number] Repository [phone] () Date:2017-11-01 11/01/2017 Secondary Insurance:SELF NOT GIVENUNK [place] [facility] Number: Effective Hospital Date:2017-11-01 Repository 10/27/2017 MAXX B BELLMANDOB: Primary MAXX B Jones E Insurance:MEDICAREPolicy BELLMANDOB: [facility] APT Number: [id number] Hospital [address] [place] [address] [id number] 03 E Repository [address]184Lto: (330) Date: [facility] E [phone] (HP) [address] [address] 10/27/2017 Secondary MAXX B Jones Insurance:MEDICAREPolicy BELLMANDOB: [facility] Number: [id number] Hospital [id number] 03 E Repository Date: [facility] [address], [place] [address] 10/27/2017 MAXX BELLMANDOB: Primary MAXX University E Insurance:MedicarePolicy BELLMANDOB: [facility] APT Number: [id number] Repository [address] [place] [address] [id number] 03 E [address]Rqv: (330) Date:Plan Name:Deepthi Wali [address] [phone] (HP) [address] [place] [address] 56566Xlv: (HP) 10/27/2017 Secondary MAXX University Insurance:MedicarePolicy BELLMANDOB: [facility] Number: [id number] Repository [id number] 03 E Date:Plan Name:Horaciokeon Corrigan [address], [place] [address]Ajw: (HP) 10/22/2017 MAXX B [id number] Primary Insurance:Zachery Corrigan [facility]en [facility] [address], Number: [place]ository [place] [address]Qjd: [phone]) [id number] [phone] (HP) Date: [facility] Conrad:Fee Service mailstop [address] [place] [address]DV: 7306 10/22/2017 Secondary MAXX B [facility] Insurance:MEDICAREPolicy [place] [facility] [place] Number: Repository [id number] Date:2008-02[birth year]28 [address] CODE SQ938APHVUCZP, [place] [address]KY: 10/20/2017 MAXX B [id number] Primary MAXX B [place] E [place] Insurance:MEDICARE PART [place] BPolicy Number: [id number] Hospital [address]Lle: (479) [id number] Repository [phone] (HP) Date:2017-10-20 10/20/2017 Secondary Insurance:SELF NOT GIVENUNK [place] PAY [facility] Number: Effective Hospital Date:2017-10-20 Repository 10/19/2017 MAXX B BELLMANDOB: Primary MAXX B Jones E Insurance:MEDICAREPolicy BELLMANDOB: [facility] APT Number: [id number] [address] [id number] 03 E Repository [address]Ozu: (330) Date: [facility] [phone] (HP) [address] [place] [address] 10/19/2017 Secondary MAXX B Jones Insurance:MEDICAREPolicy BELLMANDOB: [facility] Number: [id number] [facility] [id number] 03 E Repository Date: [facility] [address] [place] [address] 10/17/2017 MAXX BELLMANDOB: Primary MAXX University E Insurance:MedicarePolicy BELLMANDOB: [facility] APT Number: [id number] Repository [address] [place] [address] [id number] 03 E [address]Ais: (330) Date:Plan Name:Deepthi Keyes [facility] [phone] (HP) [address], [place] [address]Tco: (HP) 10/17/2017 Secondary MAXX University Insurance:MedicareSt. Luke'[facility] Networky BELLMANDOB: Hospitals Number: [id number] Repository [id number] 03 E Date:Plan Name:Deepthi [address] [place], [place] [address]Yli: (HP) 10/07/2017 MARILUZ B BELLMANDOB: Primary [facility] E Insurance:MEDICARE PART COLUMBIAMANDOB: [facility] [address] BPolicy Number: [id number] Repository CarrieWH[facility] CENTERIRWINKANS[place], [place] [id number] 03 E [address]Mug: (330) Date:2017-10-07 - [address] [phone] (HP) [id number] APT Name:PMEDICARE [address], [place], [place] [address]Smd: 34961UX: (HP) (WP) 10/06/2017 MARILUZ B BELLMANDOB: Primary [facility] E Insurance:MEDICARE PART COLUMBIAMANDOB: [facility] [address] APT BPolicy Number: [id number] Repository CarrieWH[facility] CENTERIRWINK[place], [place] [id number] 03 E [address]Cwf: (330) Date:2017-10-06 - [address] [phone] (HP) [id number] APT Name:PMEDICARE [address], [place] [address]Glz: [address]SU: (HP) (WP) 10/03/2017 MARILUZ B BELLMANDOB: Primary [facility] E Insurance:MEDICARE PART BELLMANDOB: [facility] [address] AP[address] BPolicy Number: [id number] Repository CarrieWHITE MOUNT[facility] MED[facility] [place]ENTERIRWIN [place] [id number] 03 E [address]Ngd: (330) Date:2017-10-03 - [address] [phone] (HP) [id number] APT Name:[facility] [place] [address]Kho: [phone]: (HP) (WP) 10/03/2017 MAXX B BELLMANDOB: Primary MAXX B Jones E Insurance:MEDICAREPolicy [facility]PAHANNOCK [facility] HOSPITALOB: [facility] APT Number: [id number] [address] [id number] 03 E Repository [address]Avd: (330) Date: [facility] [address] () [address] [place] [address] 10/03/2017 Secondary MAXX B Jones Insurance:MEDICAREPolRutgers - University Behavioral HealthCareOB: [facility] Number: [id number] [facility] [id number] 03 E Repository Date: [facility] [address] [place] [address] 10/03/2017 MAXX BELLMANDOB: Primary MAXX University E Insurance:MedicarePolicCarilion ClinicOB: [facility] APT Number: [id number] Repository [address] [place] [address] [id number] 03 E [address]Mhh: (330) Date:Plan Name:Deepthi CHENTIARAYODIT [facility] [phone] () [address] [place] [address]Qeq: () 10/03/2017 Secondary MAXX University Insurance:MedicarePolicy COLUMBIAMANDOB: Hospitals Number: [id number] Repository [id number] 03 E Date:Plan Name:Deepthi Corrigan [facility] [address] [place] [address]Lgk: (HP) 10/02/2017 MAXX B [id number] Primary MAXX B [place] E [place] Insurance:MEDICARE PART [place]OB: [place] BPolicy Number: [id number] [facility] [address]Odj: (330) [id number] Repository [phone] (HP) Date:2017-10-02 10/02/2017 Secondary Insurance:SELF NOT GIVENUNK [facility] Number: Effective Hospital Date:2017-10-02 Repository 09/30/2017 MAXX B CHEVY Primary Insurance:Zachery MAXX Corrigan [facility] [address]AVITH[address] [facility] [place] [address], Number: [place]ository [place] [address]Gkb: [phone] [id number] [phone] (HP) Date: [facility] CenterHilarioN:Fee Service mailstop [address], [place] [address]LI: [phone] 09/30/2017 Secondary MAXX Shekhar Rodriguez [facility] Insurance:MEDICAREPolicy [place] [facility] [place] Number: Repository [id number] Date:2008-02-28 [address]VG [place] XB165[place]APVFUWZM[place], [place] [address]XW: 09/24/2017 MAXX B BELLMANDOB: Primary MAXX B Jones E Insurance:MEDICAREPolicy BELLMANDOB: [facility] APT Number: [id number] [address] [id number] 03 E Repository [address]Gcu: 330) Date: APRILOWENSBORO HEALTH REGIONAL HOSPITALLATOYAS E [phone] () [address] [address] 09/24/2017 Secondary MAXX B Jones Insurance:MEDICAREPolicy BELLMANDOB: [facility] Number: [id number] [facility] [id number] 03 E Repository Date: [facility] [address], [place] [address] 09/24/2017 Tertiary MAXX B Jones Insurance:VETERANS BELLMANDOB: [facility] [id number] [facility] Number: 03 E Repository [id number] Date: [facility] [address] [address] 09/24/2017 MAXX BELLMANDOB: Primary MAXX University E Insurance:MedicarePolicy BELLMANDOB: [facility] APT Number: [id number] Repository [place] [id number] 03 E [address]Acy: (290) Date:Plan Name:Deepthi [address] [phone] (HP) [address] [address]Uba: (HP) 09/24/2017 Secondary MAXX University Insurance:MedicarePolicy BELLMANDOB: Hospitals Number: [id number] Repository [id number] 03 E Date:Plan Name:Deepthi [address]PrincessWHITE MOUNTAIN REG[facility] MEDICAL [place]ENTER[place], [place] [address]Mvp: (HP) 09/22/2017 MAXX B BELLMANDOB: Primary MAXX B [facility] E Insurance:MEDICARE A [facility]: [facility] BPolicy Number: [id number] Repository 60PrincessWHITE MOUNTAIN REG[facility] MEDICAL CENTERIRWINK[place], [place] [id number] [phone]: (606) Date: [phone] (HP) 09/19/2017 MAXX B [id number] Primary MAXX B [place] Insurance:MEDICARE PART [facility]: [facility] BPolicy Number: [id number] Hospital [address]Zom: (102) [id number] Repository [phone] (HP) Date:2017-09-19 09/19/2017 Secondary Insurance:[facility] NOT [facility]ENMer[facility] Medical Center INSURANCESt. Luke'S University Health Networky Community Number: Effective Hospital Date:2017-09-19 Repository 09/18/2017 MAXX B [id number] Primary MAXX B [place] Insurance:MEDICARE PART [facility]: [facility] BPolicy Number: [id number] Hospital [address]Ttz: (963) [id number] Repository [phone] (HP) Date:2017-09-18 09/18/2017 Secondary Insurance:[place] MAXX B [place] [facility] Community Number: [id number] Hospital [id number] Repository Date:[id number] SERVICE [id number] [place], [place] [address]WU: [phone] X2003 09/18/2017 Tertiary Insurance:SELF NOT GIVENUNK [place] PAY INSURANCEPoly Community Number: Effective Hospital Date:2017-09-18 Repository 09/16/2017 MAXX B [id number] Primary MAXX B Ebonie [facility] Insurance:MEDICARE PART RAPPAHANNOCK GENERAL HOSPITALOB: [place] BPolicy Number: [id number] Hospital [address]Vrj: 330) [id number] Repository [phone] (HP) Date:2017-09-16 09/16/2017 Secondary Insurance:[place] [facility]XX B [facility] Community Number: [id number] Hospital [id number] Repository Date:7516-81-55BIA SERVICE [id number] [place], [place] [address]GI: [phone] X2003 09/16/2017 Tertiary Insurance:SELF NOT GIVENUNK [place] [facility]Y [facility] Number: Effective Hospital Date:2017-09-16 Repository 09/09/2017 MAXX B BELLMANDOB: Primary MAXX B [facility] E Insurance:MEDICARE A AND [facility]: [facility] BPolicy Number: [id number] Repository [address] [place] [address] [id number] [address]Lvb: (330) Date: [phone] (HP) 09/09/2017 Secondary Insurance:[place] MAXX B [facility]: Health System Number: [id number] Repository [id number] Date: 09/01/2017 MAXX B BELLMANDOB: Primary MAXX B Jones E Insurance:[facility]ERegency [facility]: [facility] APT Number: [id number] [place] [address] [id number] 03 E Repository [address]Ivf: (330) Date: [address] [phone] (HP) [address], [place] [address] 09/01/2017 Secondary MAXX B Jones Insurance:MEDICAREPolicy BELLMANDOB: [facility] Number: [id number] [facility] [id number] 03 E Repository Date: [facility] [address], [place] [address] 09/01/2017 MAXX BELLMANDOB: Primary MAXX University E Insurance:MedicarePolicy BELLMANDOB: [facility] APT Number: [id number] Repository [address] [place] [address] [id number] 03 E [address]Pkk: (330) Date:Plan Name:Deepthi Keyes [facility]CH[facility] [phone] (HP) [address], [place] [address]Klp: (HP) 09/01/2017 Secondary MAXX University Insurance:MedicarePolicy BELLMANDOB: Hospitals Number: [id number] Repository [id number] 03 E Date:Plan Name:Deepthi Corrigan [facility] [address], [place] [address]Okv: (HP) 08/09/2017 MAXX B BELLMANDOB: Primary MAXX B [facility] E Insurance:MEDICARE A AND [facility]: [facility] Number: [id number] Repository [address] [place] [address] [id number] 19[address]Nkz: (330) Date: [phone] (HP) 08/01/2017 MAXX B BELLMANDOB: Primary MAXX B Jones E Insurance:MEDICAREPolicy BELLMANDOB: [facility] APT Number: [id number] Hospital [address] [place] [address] [id number] 03 E Repository [address]Jjv: (330) Date: [facility] [phone] (HP) [address], [place] [address] 08/01/2017 Secondary MAXX B Jones Insurance:MEDICAREPolicy BELLMANDOB: [facility] Number: [id number] [facility] [id number] 03 E Repository Date: [address], [place] [address] 08/01/2017 MAXX BELLMANDOB: Primary MAXX University E Insurance:MedicarePolicy BELLMANDOB: [facility] APT Number: [id number] Repository [address], [place] [id number] 03 E [address]Zpe: (330) Date:Plan Name:Deepthi [address]UM[address] E [phone] (HP) [address], [place] [address]Jph: (HP) 08/01/2017 Secondary MAXX University Insurance:MedicarePolicy BELLMANDOB: Hospitals Number: [id number] Repository [id number] 03 E Date:Plan Name:Deepthi Corrigan [facility] CITY[facility] E [address], [place] [address]Ijt: (HP) 07/21/2017 MAXX B BELLMANDOB: Primary MAXX B [facility] E Insurance:MEDICARE A AND [facility]: [facility] BPolicy Number: [id number] Repository [address], [place] [id number] [address]Wyy: (330) Date: [phone] (HP) 07/14/2017 MAXX B BELLMANDOB: Primary MAXX B [facility] E Insurance:MEDICARE A AND BELLMANDOB: [facility] BPolicy Number: [id number] [address]ository [address], [place] [id number] [address]Wiw: (330) Date: [phone] (HP) 07/06/2017 MAXX B BELLMANDOB: Primary MAXX B [facility] E Insurance:MEDICARE A AND BELLMANDOB: [facility] BPolicy Number: [id number] [address]ository [address], [place] [id number] [address]Anx: (330) Date: [phone] (HP) 07/05/2017 MAXX BELLMANDOB: Primary MAXX University E Insurance:MedicarePolicCarilion ClinicOB: [facility] APT Number: [id number] [address]ository [address], [place] [id number] 03 E [address]Jwf: (330) Date:Plan Name:[facility] Hospitalkeon Keyes [facility] [phone] (HP) [address], [place] [address]Oii: (HP) 07/05/2017 Secondary MAXX University Insurance:MedicarePolicy COLUMBIAMANDOB: Hospitals Number: [id number] Repository [id number] 03 E Date:Plan Name:[facility] Hospitalkeon Corrigan [facility] [address], [place] [address]Odn: (HP) 06/22/2017 MAXX B BELLMANDOB: Primary MAXX B Jones E Insurance:MEDICAREPolicy BELLMANDOB: [facility] APT Number: [id number] [address] [id number] 03 E Repository [address]Efk: (330) Date: [facility] CITYARAIAS E [phone] (HP) [address], [place] [address] 06/22/2017 Secondary MAXX B Jones Insurance:MEDICAREPolicy BELLMANDOB: [facility] Number: [id number] [facility] [id number] 03 E Repository Date: [facility] [address] [address] 06/22/2017 MAXX BELLMANDOB: Primary MAXX University E Insurance:MedicarePolicy BELLMANDOB: [facility] APT Number: [id number] Repository [address] [place] [address] [id number] 03 E [address]Kkq: (330) Date:Plan Name:[facility] Hospitalkeon Keyes [facility] [phone] (HP) [address] [place] [address]Bnt: (HP) 06/22/2017 Secondary MAXX University Insurance:MedicarePolicy BELLMANDOB: Hospitals Number: [id number] Repository [id number] 03 E Date:Plan Name:Deepthi [address], [place] [address]Bkz: (HP) 06/21/2017 MAXX BELLMANDOB: Primary MAXX University E Insurance:MedicarePolicy BELLMANDOB: [facility] A[address] APT Number: [id number] [address]ository [address], [place] [id number] 03 E [address]Gdi: (625) Date:Plan Name:Deepthi [address] [phone] (HP) [address], [place] [address]Hfw: (HP) 06/21/2017 Secondary MAXX University Insurance:MedicarePolic BELLMANDOB: Hospitals Number: [id number] Repository [id number] 03 E Date:Plan Name:Deepthi [address], [place] [address]Cin: (HP) 05/27/2017 MAXX B BELLMANDOB: Primary MAXX B Jones E Insurance:MEDICAREPolicCarilion ClinicOB: [facility] HospitalIfeoma E APT Number: [id number] [facility] [address], [place] [id number] 03 E Repository [address]Eok: (330) Date: [address] [phone] (HP) [address], [place] [address] 05/27/2017 Secondary MAXX B Jones Insurance:MEDICAREPolicy BELLMANDOB: [facility] Number: [id number] [facility] [id number] 03 E Repository Date: [address], [place] [address]
== END 2018-05-17 13:59 | disposition home or self-care (01) ==
LOC: ED 11:59
PROVIDERS: Emergency Provider Emergency Medicine
DX: K94.09 Other complications of colostomy (principal); Y83.3 Surgical operation with formation of external stoma as the cause of abnormal reaction of the patient, or of later complication, without mention of misadventure at the time of the procedure; I10 Essential (primary) hypertension; E78.00 Pure hypercholesterolemia, unspecified; I25.10 Atherosclerotic heart disease of native coronary artery without angina pectoris; Z95.1 Presence of aortocoronary bypass graft; I25.2 Old myocardial infarction; Z95.0 Presence of cardiac pacemaker; Z72.0 Tobacco use
CPT/HCPCS: 96374; 96375; 99285; A4216; J2405

== ENCOUNTER 2018-05-26 20:41 | Emergency (ER) | payer MEDICARE, OTHER, SELFPAY ==
[2018-05-26 20:41] VITALS: BP 164/77; PULSE 77; RESP 18; TEMP 37.2; O2SAT 96; BMI 28.1
--- NOTE | 2018-05-26 21:05 | EKG12_ITS ---
Test Reason : SOB Blood Pressure : / mmHG Vent. Rate : 071 BPM Atrial Rate : 071 BPM P-R Int : 196 ms QRS Dur : 108 ms QT Int : 474 ms P-R-T Axes : 052 033 058 degrees QTc Int : 515 ms Normal sinus rhythm Nonspecific T wave abnormality Abnormal ECG Confirmed by LAUREEN METCALF, KASSANDRA ([id number]), pictures editor DAPHNYE DAVISON ([id number]) on 05/30/2018 8:09:30 AM Referred By: Confirmed By:KASSANDRA GARDUNO MD
[2018-05-26] MEDS: HYDROcodone Bitartrate/Apap 5/325 Tablet PO ×2 (21:33→23:09)
[2018-05-26] MEDS: LORazepam 1 MG Tablet PO (21:33)
[2018-05-26 22:00] VITALS: BP 181/70; PULSE 60; RESP 18; O2SAT 95
--- NOTE | 2018-05-26 22:53 | ED.VISSUMM ---
- ER Visit Summary Date of Service: 05/26/18 Chief Complaint: Abdominal pain History of Present Illness: The patient is a 67 M who has a long history associated with his colostomy stoma. Patient underwent transverse loop colostomy 2016. Since that time he has had numerous visits for stoma prolapse. From surgeons notes and medicine notes the patient has been noncompliant with follow-up. He states he is supposed to be seen next month for reversal. He states that tonight when the stoma prolapsed began to have chest pain. This appears to be a very common thing with him. He was recently admitted into the hospital with similar symptoms. Physical Examination: Afebrile vital signs stable Gen: Well-nourished well-developed Head: Normocephalic atraumatic Eyes: Perrl EOMI ENT: TMs clear no rhinorrhea moist mucous membranes Neck: Supple no lymphadenopathy no JVD nontender CVS: Regular rate rhythm no murmurs normal S1-S2 Respiratory: No distress clear to auscultation bilaterally chest nontender Abdomen: Soft nondistended normal bowel sounds no masses there is a large stoma in the right side of his abdomen. Through which is probably about 12 cm of pink soft intestinal prolapse. He does not complain of any significant pain when I palpated and did attempt to reduce it. The site is extremely wide. 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 Back: Nontender Extremity: Nontender no edema Skin: Normal color no rash Neuro: alert orientated ?3 CN II-XII intact normal strength sensation reflexes gait cerebellar Psych: 3 million anxious Test Results: EKG showed a normal sinus rhythm with no concerning features of ACS. Emergency Department Course and Treatment: I suspect the chest pain is related to his anxiety as this happens in concert with the intestinal prolapse on multiple occasions. I was able to reduce the prolapse quite easily. However with almost any type of movement it comes back. I applied sugar and it reduced but came back out when he moves. He states that he had been using an abdominal binder which was helping but it got dirty when he changed his bag. We will place another one. I encouraged him to follow-up with his surgeon. He is to monitor the stoma site. Return if the tissue is no longer pink or has concerns for ischemia. Impression: 1. Ostomy stoma prolapse 2. Anxiety This note was generated with Shark Punchation software. It may contain incorrect words, spelling, and punctuation that were not noted in review of the chart prior to signing ED Disposition - Plan for ED Patient: Disposition: Home or Assisted Living Chief Complaint: Abd Pain Instructions: Ileostomy: Caring For Your Stoma Additional Instructions: Follow-up with your surgeon as soon as possible
[2018-05-26 23:10] VITALS: BP 178/78; PULSE 62; RESP 18
== END 2018-05-26 23:15 | disposition home or self-care (01) ==
PROVIDERS: Emergency Provider Emergency Medicine
DX: K43.5 Parastomal hernia without obstruction or gangrene (principal); F41.9 Anxiety disorder, unspecified; I25.10 Atherosclerotic heart disease of native coronary artery without angina pectoris; J44.9 Chronic obstructive pulmonary disease, unspecified; G47.33 Obstructive sleep apnea (adult) (pediatric); F31.9 Bipolar disorder, unspecified; Z72.0 Tobacco use; Z91.19 Patient's noncompliance with other medical treatment and regimen
CPT/HCPCS: 93005; 96374; 96375; 99285

== ENCOUNTER 2018-06-03 22:42 | Emergency (ER) | payer MEDICARE, OTHER, SELFPAY ==
[2018-06-03 22:42] VITALS: BP 150/83; PULSE 57; RESP 18; TEMP 36.9; O2SAT 100; BMI 28.1
--- NOTE | 2018-06-03 23:24 | CM.ED ---
Social Work Note Referral from RN, Fredo Childress, as pt has care plan. Met with pt in waiting area and inquired what brought him all the way from [place]. States that he does not have much luck there and likes to come down here. Explain that he had approximately 28 visits in 2018 and 3 so far this year already and that to drive himself from [place] to [place] seems as though this is not an emergent concern. Pt states that [facility] [place] and inform the importance of maintaining care with a primary care provider for chronic issues. Provide with a list of physicians that would accept his Medicare in the [place] area as well. Educate pt to palliative care and he is agreeable to a referral being sent to [facility] in [place]. At this time pt to be taken back to a room and evaluated by physician. Palliative care referral submitted to [facility]. Updated physicians that pt has a care plan and is not be given schedule II drugs for unverifiable pain. No further needs at this time. Mirtha Thurston, RETAIL SHIFT SUPERVISOR, HORTICULTURE TEACHER
--- NOTE | 2018-06-03 23:35 | ED.VISSUMM ---
- ER Visit Summary Date of Service: 06/03/18 Chief Complaint: Colostomy out History of Present Illness: The patient is a 67 M who presents because his colostomy is out. This is been a chronic recurrent issue for the patient. He had a colostomy due to complications from diverticulitis. Previous records have noted that prolapse is been a chronic recurrent issue. There is been note made of possible malingering/drug-seeking behavior. There is also been note made of noncompliance with follow-up. He has a care plan sitting no narcotics. He states that he is using abdominal binder intermittently. He states that his stoma prolapse about an hour ago. Physical Examination: Afebrile vitals are unremarkable No distress Moist mucous membranes Heart regular rate and rhythm Lungs clear Abdomen soft nondistended he has no guarding no rebound he does have some mild diffuse tenderness his colostomy is prolapse but was easily reducible with gentle pressure visualized mucosa appears pink and well perfused Test Results: Not indicated Emergency Department Course and Treatment: Stoma was easily reduced with gentle pressure. This is chronic recurrent issue for the patient. He was advised to follow-up with surgery and was discharged. Treatment Plan: [] Disposition: Discharge Impression: Colostomy prolapse This note was generated with [employer] dictation software. It may contain incorrect words, spelling, and punctuation that were not noted in review of the chart prior to signing ED Disposition - Plan for ED Patient: [facility] [[facility] Provider] -
--- NOTE | 2018-06-03 23:38 | ED.DEP ---
ED Disposition - Plan for ED Patient: [facility] [Primary Care Provider] - Additional Instructions: You were seen today for prolapse of your colostomy. This is a recurrent problem. It was easily put back in place in the emergency department. It is important that you use an abdominal binder at home and follow up with your surgeon.
== END 2018-06-03 23:30 | disposition home or self-care (01) ==
PROVIDERS: Emergency Provider Emergency Medicine
DX: K94.09 Other complications of colostomy (principal); Y83.3 Surgical operation with formation of external stoma as the cause of abnormal reaction of the patient, or of later complication, without mention of misadventure at the time of the procedure; I10 Essential (primary) hypertension; E78.00 Pure hypercholesterolemia, unspecified; I25.10 Atherosclerotic heart disease of native coronary artery without angina pectoris; Z95.1 Presence of aortocoronary bypass graft; I25.2 Old myocardial infarction; Z72.0 Tobacco use
CPT/HCPCS: 99282

== ENCOUNTER 2018-06-25 08:47 | Emergency (ER) | payer MEDICARE, OTHER, SELFPAY ==
[2018-06-25 08:49] VITALS: BP 191/80; PULSE 84; RESP 16; TEMP 36.7; O2SAT 98; BMI 29.5
--- NOTE | 2018-06-25 09:10 | EKG12_ITS ---
Test Reason : CP Blood Pressure : / mmHG Vent. Rate : 085 BPM Atrial Rate : 085 BPM P-R Int : 188 ms QRS Dur : 104 ms QT Int : 406 ms P-R-T Axes : 042 047 051 degrees QTc Int : 483 ms Normal sinus rhythm Normal ECG Confirmed by MAGGI ESTES MD ([id number]), editor sound SHER ROUSE ([id number]) on 06/27/2018 3:51:05 PM Referred By: MAKENZIE
--- NOTE | 2018-06-25 09:10 | RAD_ITS ---
STUDY: X-RAY CHEST REASON FOR EXAM: Male, 67 years old. Chest pain for one hour. TECHNIQUE: Single AP portable view of the chest. COMPARISON: Comparison is made with prior study dated March 31, 2018. FINDINGS: EKG electrodes are seen. Stable focal elevation of the left hemidiaphragm. There is no demonstrated pleural abnormality. Sternal cerclage wires and vascular clips are present from a prior sternotomy and coronary artery bypass graft procedure (CABG). A left-sided dual-chamber pacemaker is seen. Normal mediastinum and irene. Normal visualized pulmonary arteries. There is atherosclerotic calcification of the aortic arch with tortuosity. There are diffuse degenerative changes of the visualized thoracic spine. Normal visualized ribs, clavicles, and shoulders. There is no demonstrated abnormality of the visualized soft tissue structures of the upper abdomen. RAD/Chest 1 View (Portable) IMPRESSION: Prior CABG. No acute abnormality is seen. Electronically Signed: Franki Baker, at 9:57 EST , Service support ,
[2018-06-25] MEDS: Morphine 4 MG/ML Syringe IV (09:41)
[2018-06-25] MEDS: Ondansetron 4 MG/2 ML Vial IV (09:41)
[2018-06-25] MEDS: LORazepam 2 MG/ML Syringe 0.5 MG IV ×2 (09:41→11:17)
[2018-06-25 09:47] LABS: Absolute Lymphocyte Count 1.02 X10^3/ul (0.83-4.51); Basophil# 0.02 X10^3/uL; Basophil% 0.2 % (0-1); Eosinophil# 0.01 X10^3/uL; Eosinophils% 0.1 % (0-5); Hematocrit 42.4 % (40-54); Hemoglobin 13.9 g/dl (13.0-16.5); Lymphocyte # 1.02 X10^3/ul (4.0); Lymphocyte % 10.7 % (19-41); Mean Corp Hgb Conc 32.8 g/gl (32-36); Mean Corpuscular Hgb 30.7 pg (27.0-32.0); Mean Corpuscular Volume 93.6 fL (80-94); Mean Platelet Vol. 9.8 fl (6.2-12.0); Monocyte% 5.2 % (0-10); Neutrophil % 83.7 % (47-70); Platelet Count 352 K/mm3 (150-450); RBC Distribution Width CV 14.6 % (11.6-14.6); RBC Distribution Width SD 49.6 fl (35.1-43.9); Red Blood Count 4.53 M/mm3 (4.6-6.2); White Blood Count 9.6 K/mm3 (4.4-11.0)
[2018-06-25 09:48] LABS: POSITIVE COUNT NO; POSITIVE DIFFERENTIAL NO; POSITIVE MORPHOLOGY NO
[2018-06-25 10:06] LABS: Anion Gap 9 (5-15); BUN 12 mg/dL (7-18); BUN/Creat Ratio 11.7 RATIO (10-20); Calcium,Total 9.1 mg/dL (8.5-10.1); Chloride 103 mmol/L (98-107); Creatinine, Serum 1.03 mg/dL (0.70-1.30); EST Glomerular Filtration Rate 77 mL/min (>60); Est Glom Filt Rate - Afr Amer 93 mL/min (>60); Estimated Creatinine Clearance 68.25 ml/min; Glucose 117 mg/dL (74-106); Potassium 4.9 mmol/L (3.5-5.1); Sodium Level 136 mmol/L (136-145)
[2018-06-25 11:16] VITALS: BP 166/76; PULSE 73; RESP 23; O2SAT 95
[2018-06-25 12:01] VITALS: BP 173/71; PULSE 69; RESP 16; O2SAT 96
[2018-06-25 13:15] VITALS: BP 153/73; PULSE 76; RESP 16; O2SAT 96
--- NOTE | 2018-06-25 13:44 | ED.DCSUM_ITS ---
- ER Visit Summary Date of Service: 06/25/18 Chief Complaint: Chest pain and stoma pain History of Present Illness: The patient is a 67 M who I know quite well from prior emergency department visits. 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 He frequently has chest pain. He has history of COPD and still smokes. He is medically noncompliant. Last stress test was 1218. He states that he had a sudden onset of substernal chest tightness 45 minutes prior to arrival. Physical Examination: Afebrile vital signs are stable Gen: Well-nourished well-developed Head: Normocephalic atraumatic Eyes: Perrl EOMI ENT: TMs clear no rhinorrhea moist mucous membranes Neck: Supple no lymphadenopathy no JVD nontender CVS: Regular rate rhythm no murmurs normal S1-S2 Respiratory: No distress clear to auscultation bilaterally chest nontender Abdomen: Soft there is a large pink stoma prolapse. This does not appear significantly changed from prior. Nondistended normal bowel sounds no masses Back: Nontender Extremity: Nontender no edema Skin: Normal color no rash Neuro: alert orientated ?3 CN II-XII intact normal strength sensation reflexes gait cerebellar Psych: Normal affect normal mood Test Results: EKG sinus rhythm at a rate of 82. CBC and chemistries with a glucose of 117. Initial troponin 0 0.016 secondary troponin 0 0.0263 hours after the first draw. Chest x-ray negative. Emergency Department Course and Treatment: Patient received morphine and a dose of Zofran. He told nursing that nothing helped he received additional dose of Ativan. He states that that did not help and then he was offered Toradol and declined it stating that never helps. When I interviewed the patient discuss his labs he states that the morphine and Ativan really helped him and he would like another dose. This is inconsistent with what he told nursing. I do not believe his chest pain to be cardiac in nature. Once again he is unsure when his next surgical appointment is. Last month he told me he was in the beginning of May now he tells me the beginning of June. I advised him that he needs to be compliance and make his appointments. Impression: 1. Chest pain This note was generated with [employer] dictation software. It may contain incorrect words, spelling, and punctuation that were not noted in review of the chart prior to signing ED Disposition - Plan for ED Patient: Disposition: Home or Assisted Living Instructions: ED Chest Pain Atypical Unkn Cause [facility] [Primary Care Provider] - 1 Week
[2018-06-25 14:07] VITALS: BP 159/84; PULSE 78; RESP 18; O2SAT 98
== END 2018-06-25 14:09 | disposition home or self-care (01) ==
PROVIDERS: Emergency Provider Emergency Medicine
DX: R07.9 Chest pain, unspecified (principal); J44.9 Chronic obstructive pulmonary disease, unspecified; Z91.14 Patient's other noncompliance with medication regimen; F17.200 Nicotine dependence, unspecified, uncomplicated; Z90.49 Acquired absence of other specified parts of digestive tract; Z79.82 Long term (current) use of aspirin
CPT/HCPCS: 71045; 80048; 84484; 85025; 93005; 99284; A4216; J2405

== ENCOUNTER 2018-07-09 12:10 | Emergency (ER) | payer MEDICARE, OTHER, SELFPAY ==
[2018-07-09 12:11] VITALS: BP 187/80; PULSE 102; RESP 18; TEMP 36.7; O2SAT 100; BMI 29.9
--- NOTE | 2018-07-09 12:32 | ED.VISSUMM ---
- ER Visit Summary Date of Service: 07/09/18 Chief Complaint: My stoma came out again History of Present Illness: The patient is a 67 M with a history of frequent stoma herniation presents because he rolled over 30 minutes ago in bed onto his stoma and it herniated out. He has minimal discomfort. He states that this happens frequently and that typically it is reduced at the bedside after giving pain medication. He has had normal output recently. Physical Examination: He has an obvious stomal herniation. No surrounding tenderness. Test Results: Emergency Department Course and Treatment: He was given pain medication and observe. He laid flat in the bed and when I went in to reevaluate him, the stoma had nearly completely reduced because he was putting pressure on it himself. I gently pressed on it and it is completely reduced without trouble at all. An abdominal binder was placed. Verbal and looks well. He would like to follow-up with a [facility] surgeon. Treatment Plan: Follow-up with surgery as an outpatient Disposition: Home stable Impression: Stomal herniation This note was generated with [employer] dictation software. It may contain incorrect words, spelling, and punctuation that were not noted in review of the chart prior to signing ED Disposition - Plan for ED Patient: Instructions: ED Abdominal Pain Unkn Cause Referrals: Geronimo Land MD [STAFF PHYSICIAN] - As soon as possible
[2018-07-09] MEDS: Ondansetron 4 MG/2 ML Vial IV (12:34)
[2018-07-09] MEDS: 0.9% Normal Saline 1,000 ML 1000 ML IV (12:34)
[2018-07-09] MEDS: Morphine 4 MG/ML Syringe IV (12:34)
[2018-07-09] MEDS: HYDROmorphone 1 MG/ML Syringe IV (13:08)
[2018-07-09] MEDS: oxyCODONE 5 MG Tablet PO (13:58)
== END 2018-07-09 14:01 | disposition home or self-care (01) ==
LOC: ED 13:00
PROVIDERS: Emergency Provider Emergency Medicine
DX: K94.29 Other complications of gastrostomy (principal); I10 Essential (primary) hypertension; E78.00 Pure hypercholesterolemia, unspecified; Z95.1 Presence of aortocoronary bypass graft; Z72.0 Tobacco use
CPT/HCPCS: 96361; 96374; 96375; 99284; J7030; A4216; J2405

== ENCOUNTER 2018-07-10 11:41 | Emergency (ER) | payer MEDICARE, OTHER, SELFPAY ==
[2018-07-09 12:11] VITALS: BMI 29.9
[2018-07-10 11:43] VITALS: BP 188/92; PULSE 104; RESP 18; TEMP 36.5; O2SAT 97; BMI 28.8
--- NOTE | 2018-07-10 12:02 | ED.VISSUMM ---
- ER Visit Summary Date of Service: 07/10/18 Chief Complaint: Stoma problem History of Present Illness: The patient is a 68 M with history of prior ostomy for diverticulitis 2 years ago presents to the emergency department with stoma difficulties. Patient was actually seen here yesterday. At that time, he had herniation of the stoma. It was reduced without issue. He states that he was doing fine until about half an hour ago. He states he came out again. He states that sometimes it will come out once a month, but sometimes it comes out almost every day. He describes a sharp pain. He denies any nausea or vomiting. He denies any urinary symptoms. Physical Examination: Exam is relatively unremarkable. Patient does have stomal herniation with into his ostomy bag. He is mildly tender. He has no rebound or guarding. Test Results: [] Emergency Department Course and Treatment: The patient has hernia of the stoma. There is no color change. There is normal cap refill coloration of the stoma itself. Patient was given analgesics. Once he was comfortable, I was able to reduce without issue. He was observed. It stayed reduced. At this time, I do feel the patient can safely be discharged home. Treatment Plan: [] Disposition: Discharge Impression: 1. Stoma herniation with reduction This note was generated with [employer] dictation software. It may contain incorrect words, spelling, and punctuation that were not noted in review of the chart prior to signing ED Disposition - Plan for ED Patient: Instructions: ED Abdominal Pain Unkn Cause [facility] [Primary Care Provider] -
[2018-07-10] MEDS: HYDROmorphone 1 MG/ML Syringe IV (12:55)
[2018-07-10] MEDS: Ondansetron 4 MG/2 ML Vial IV (12:56)
[2018-07-10] MEDS: HYDROmorphone 0.5 MG/0.5 ML SYRINGE IV (13:39)
[2018-07-10 13:52] VITALS: PULSE 101; RESP 15; O2SAT 96
--- NOTE | 2018-07-10 13:53 | NURSING ---
PT REQUIRED AN ULTRASOUND FOR IV ACCESS. DELAYED ADMISSION OF MEDICATIONS. Krista CORTÉS RN
[2018-07-10 14:06] VITALS: BP 170/84; PULSE 87; RESP 14; O2SAT 96
== END 2018-07-10 14:07 | disposition home or self-care (01) ==
LOC: ED 12:42
PROVIDERS: Emergency Provider Emergency Medicine
DX: K43.5 Parastomal hernia without obstruction or gangrene (principal); E11.9 Type 2 diabetes mellitus without complications; I10 Essential (primary) hypertension; E78.00 Pure hypercholesterolemia, unspecified; J44.9 Chronic obstructive pulmonary disease, unspecified; Z72.0 Tobacco use
CPT/HCPCS: 96374; 96375; 96376; 99284; A4216; J2405

== ENCOUNTER 2018-07-23 16:53 | Emergency (ER) | payer MEDICARE, OTHER, SELFPAY ==
[2018-07-23 16:53] VITALS: BP 199/93; PULSE 91; RESP 18; TEMP 36.5; O2SAT 97; BMI 28.8
--- NOTE | 2018-07-23 17:14 | CM.ED ---
Social Work Note Discussed with physician and made aware that pt has a care plan which states pt should not be given narcotics from chronic pain or unverifiable pain. Mirtha Thurston, RITA, CINDY
--- NOTE | 2018-07-23 17:20 | ED.VISSUMM ---
- ER Visit Summary Date of Service: 07/23/18 Chief Complaint: Abdominal pain History of Present Illness: The patient is a 68 M well-known to this emergency department. Patient has a right lower quadrant colostomy secondary to diverticulitis in the past and resection. He also has known history of CAD, MA and prior bypass. Patient's been here multiple times where his ostomy site herniates and develops abdominal pain. He does have a care plan in which we try to prevent him from getting narcotics. I did explain this to him and he try to negotiate getting a small dose of narcotics. I offered him Nubain but he was concerned that he may put him into withdrawal and he declined. Physical Examination: Well-appearing older male. Vital signs are stable and afebrile. No distress. H EENT exam unremarkable. Moist weeks membranes. Neck nontender no lymphadenopathy. Lungs clear to auscultation bilaterally. Heart regular rhythm no murmur. Abdomen soft. Nondistended normal bowel sounds. His loose brown stool in his right lower quadrant ostomy bag. There is herniation of the bowel into the bag. Mild tenderness to the ostomy site. The rest of his abdomen is benign. There is no signs of obstruction. Abdomen is soft with bowel sounds. He is moving all 4 extremities. Calves are without edema. Neurologically is awake and alert. Test Results: None Emergency Department Course and Treatment: Patient will be placed in supine position and will try to reduce the hernia with time. Repeat exam at 1820 patient is doing well. The ostomy herniation resolved spontaneously lying supine with an ice pack on it. He feels better will be discharged home. 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 This note was generated with [employer] dictation software. It may contain incorrect words, spelling, and punctuation that were not noted in review of the chart prior to signing ED Disposition - Plan for ED Patient: Disposition: Home or Assisted Living [facility]errals: [facility] [Primary Care Provider] - As soon as possible Additional Instructions: Follow-up with [facility] physicians as needed.
--- NOTE | 2018-07-23 17:23 | ED.DEP ---
ED Disposition - Plan for ED Patient: Disposition: Home or Assisted Living Referrals: [facility] [Primary Care Provider] - As soon as possible Additional Instructions: Follow-up with [facility] physicians as needed.
--- NOTE | 2018-07-23 17:44 | NURSING ---
pt ostomy site packed with ice. pt unhappy at this time regarding pain medication. pt was offered medication nubain per dr adams. pt refused
== END 2018-07-23 18:39 | disposition home or self-care (01) ==
PROVIDERS: Emergency Provider Emergency Medicine
DX: K94.09 Other complications of colostomy (principal); Y83.9 Surgical procedure, unspecified as the cause of abnormal reaction of the patient, or of later complication, without mention of misadventure at the time of the procedure; I25.10 Atherosclerotic heart disease of native coronary artery without angina pectoris; I25.2 Old myocardial infarction; Z95.1 Presence of aortocoronary bypass graft; Z72.0 Tobacco use
CPT/HCPCS: 99282

== ENCOUNTER 2018-09-01 08:24 | Observation (INO) | payer MEDICARE, SELFPAY ==
[2018-09-01] VITALS (18 sets, daily range): BP systolic 127–183; BP diastolic 58–92; PULSE 76–108; RESP 16–22; TEMP 36.7–37.1; O2SAT 95–100; BMI 29.1; BMI 28.9
--- NOTE | 2018-09-01 08:39 | RAD_ITS ---
STUDY: X-RAY CHEST REASON FOR EXAM: Male, 68 years old. Chest pain. TECHNIQUE: Single portable frontal chest. COMPARISON: June 25, 2018. FINDINGS: There is stable appearance and position of the 2-lead left pectoral pacemaker. There is no pneumothorax. The patient is status post CABG with stable borderline enlargement of the cardiomediastinal silhouette. There is no evident pleural effusion. There is no pneumothorax. There is a 6 mm soft tissue marginated lucency within the mid left lung base adjacent to the apex of the left hemidiaphragm. This finding measures 5.2 cm transversely by 2.5 cm in craniocaudad dimension. The lungs otherwise appear clear. There is no evident acute osseous abnormality. There is atherosclerotic calcification of the aortic arch with tortuosity. There are diffuse degenerative changes of the visualized thoracic spine. There is no evident acute osseous abnormality. There is no demonstrated abnormality of the visualized soft tissue structures of the upper abdomen. RAD/Chest 1 View (Portable) IMPRESSION: Status post CABG with stable borderline enlargement of the cardiomediastinal silhouette size. No plain film evidence of overt failure. No pleural effusion. No pneumothorax. Soft tissue marginated lucency in the mid left lung base may represent a pulmonary cavitary lesion versus a portion of the proximal stomach herniated through a left hemidiaphragm defect. Stable appearance and position of the 2-lead left pectoral pacemaker. No plain film evident acute osseous abnormality. Electronically Signed: Alfonzo Conroy MD at 9:28 EDT , Service support ,
--- NOTE | 2018-09-01 08:39 | EKG12_ITS ---
Test Reason : CP Blood Pressure : / mmHG Vent. Rate : 101 BPM Atrial Rate : 101 BPM P-R Int : 150 ms QRS Dur : 102 ms QT Int : 430 ms P-R-T Axes : 043 043 051 degrees QTc Int : 557 ms Sinus tachycardia with occasional Premature ventricular complexes Possible Left atrial enlargement ST elevation consider lateral injury or acute infarct Abnormal ECG Confirmed by MEERA METCALF, MAGGI ([id number]), editor sound LYNN RM ([id number]) on 09/03/2018 1:29:13 PM Referred By: MAGI Confirmed By:MAGGI ESTES MD
[2018-09-01] MEDS: Aspirin 81 MG TAB.CHEW 324 MG PO (08:53)
[2018-09-01 09:07] LABS: Absolute Lymphocyte Count 1.45 X10^3/ul (0.83-4.51); Absolute Neutrophil Count 7.8 X10^3/uL (2.0-7.7); Basophil# 0.03 X10^3/uL; Basophil% 0.3 % (0-1); Eosinophil# 0.17 X10^3/uL; Eosinophils% 1.7 % (0-5); Hematocrit 40.7 % (40-54); Hemoglobin 13.8 g/dl (13.0-16.5); Lymphocyte # 1.45 X10^3/ul (4.0); Lymphocyte % 14.6 % (19-41); Mean Corp Hgb Conc 33.9 g/gl (32-36); Mean Corpuscular Volume 91.5 fL (80-94); Mean Platelet Vol. 9.8 fl (6.2-12.0); Monocyte# 0.45 X10^3/uL; Monocyte% 4.5 % (0-10); Neutrophil # 7.78 X10^3/uL (2.7-7.7); Neutrophil % 78.7 % (47-70); Platelet Count 398 K/mm3 (150-450); RBC Distribution Width CV 14.7 % (11.6-14.6); RBC Distribution Width SD 49.6 fl (35.1-43.9); Red Blood Count 4.45 M/mm3 (4.6-6.2); White Blood Count 9.9 K/mm3 (4.4-11.0)
[2018-09-01 09:08] LABS: POSITIVE COUNT NO; POSITIVE DIFFERENTIAL NO; POSITIVE MORPHOLOGY NO
[2018-09-01 09:21] LABS: BUN 13 mg/dL (7-18); Creatinine, Serum 1.09 mg/dL (0.70-1.30); EST Glomerular Filtration Rate 72 mL/min (>60); Estimated Creatinine Clearance 63.62 ml/min; Glucose 150 mg/dL (74-106)
[2018-09-01 09:22] LABS: Anion Gap 6 (5-15); BUN/Creat Ratio 11.9 RATIO (10-20); Calcium,Total 9.1 mg/dL (8.5-10.1); Chloride 105 mmol/L (98-107); Est Glom Filt Rate - Afr Amer 87 mL/min (>60); Potassium 4.2 mmol/L (3.5-5.1); Sodium Level 139 mmol/L (136-145)
--- NOTE | 2018-09-01 09:38 | NURSING ---
CALLING [facility]
--- NOTE | 2018-09-01 09:39 | NURSING ---
NO ANSWER AT [facility]. PATIENT DOES HAVE MEDICARE A AND B
[2018-09-01] MEDS: Ondansetron 4 MG/2 ML Vial IV (09:52)
[2018-09-01] MEDS: Morphine 4 MG/ML Syringe IV (09:52)
[2018-09-01] MEDS: Nitroglycerin Oint 1 INCH PACKET TRANSDERM. (09:55)
--- NOTE | 2018-09-01 10:08 | PCM.HP.STD ---
Problem List (1) Chest pain Status: Acute Qualifiers: Chest pain type: unspecified Qualified Code(s): R07.9 - Chest pain, unspecified (2) Hypertension Status: Chronic Qualifiers: Hypertension type: essential hypertension Qualified Code(s): I10 - Essential (primary) hypertension (3) CAD (coronary atherosclerotic disease) Status: Chronic Qualifiers: Coronary Disease-Associated Artery/Lesion type: unspecified vessel or lesion type [place] vs. transplanted heart: [place] heart Associated angina: angina presence unspecified Qualified Code(s): I25.10 - Atherosclerotic heart disease of [place] coronary artery without angina pectoris History of Present Illness Date of Admission: 09/01/18 Chief Complaint: Chest pain - 1 day The patient is a 68 year old M with PMHx of CAD status post CABG, status post stents, hypertension, hyperlipidemia, status post pacemaker who presents with chest pain, described as midsternal, radiates to the left sided, associated nausea and light headedness. He denies palpitations, orthopnea, leg swelling. He follows with cardiology in the [facility], cannot tell me when he last saw cardiology. He is a smoker and smokes about half a pack of cigarettes a day. Vitals in the ED show temperature of 98.1F, heart rate 90, blood pressure was 134/79, respiratory to 20, SPO2 was 99% on 2 L of oxygen. WBC count was 9.9, hemoglobin 13.8, platelet count was 398, BMP was unremarkable, troponins were 0.015 Past Medical History Past Medical History (Chronic Problems): Chronic Problems Hypertension (Chronic) CAD (coronary atherosclerotic disease) (Chronic) Allergies atorvastatin Allergy (Verified 07/23/18 16:55) Angioedema diclofenac [From Voltaren] Allergy (Verified 07/23/18 16:55) Angioedema hydrochlorothiazide Allergy (Verified 07/23/18 16:55) Angioedema moxifloxacin Allergy (Verified 07/23/18 16:55) Angioedema ramipril Allergy (Verified 07/23/18 16:55) Angioedema rosuvastatin [From Crestor] Allergy (Verified 07/23/18 16:55) Angioedema simvastatin Allergy (Verified 07/23/18 16:55) Angioedema ticagrelor [From Brilinta] Allergy (Verified 07/23/18 16:55) Shortness of breath Home Medications: Ambulatory Orders Medication Instructions Recorded Albuterol Inhaler [Ventolin Hfa] 2 puff INHALATION Q6H PRN PRN 12/15/16 Aspirin E.C. [Ecotrin] 81 mg PO DAILY@0800 12/15/16 Furosemide [Lasix] 40 mg PO DAILY PRN PRN 12/15/16 Gabapentin [Neurontin] 600 mg PO QHS 12/15/16 Losartan Potassium [Cozaar] 100 mg PO DAILY 12/15/16 Metoprolol(XL)Succ [Toprol Xl 100 mg PO QHS 12/15/16 (Beta Jennifer)] Multivitamin,Therapeutic [Thera] 1 each PO DAILY 12/15/16 Nitroglycerin [Nitrostat] 0.4 mg SL Q5M PRN 12/15/16 Pravastatin [Pravachol] 40 mg PO QHS 12/15/16 Quetiapine Fumarate [Seroquel] 200 mg PO QHS 12/15/16 Vitamin B Complex/Folic Acid 0.4 mg PO DAILY 12/15/16 [Super B Maxi Complex Caplet] Amlodipine [Norvasc] 10 mg PO DAILY 12/31/16 Percocet 5-325 mg Tablet 2 tab PO Q4H PRN PRN 09/01/18 Surgical History: - - colectomy s/p colostomy, pacemaker insertion Psychiatric History: No pertinent psych hx Lives: Spouse/ Significant Other, With Family Smoking Status: Current every day smoker Tobacco Use: Cigarettes Alcohol: None Drugs: None - *Family History Paternal History Items: High Cholesterol, Heart Disease, Hypertension Maternal History Items: No pertinent history Review of Systems Constitutional: Denies: Anorexia, Chills, Fever, Weakness, Weight Change Eyes: Denies: Blurred vision, Cataracts, Conjunctivae Inflammation, Redness HEENT: Denies: Difficulty Hearing, Difficulty Swallowing, Head Aches, Hearing Changes, Sinus Congestion, Sinus Drainage Cardiovascular: Reports: Chest Pain, Chest Pressure, Chest Tightness, Light Headedness. Denies: Orthopnea, Palpitations, Paroxysmal Noc. Dyspnea Respiratory: Reports: Shortness of Breath, Shortness of breath at rest. Denies: Cough, Hemoptysis, Shortness of breath upon exertion, Sputum production Gastrointestinal: Denies: Abdominal Pain, Constipation, Nausea, Vomiting Genitourinary: Denies: Dysuria, Frequency, Incontinence Musculoskeletal: Denies: Joint Pain, Joint stiffness, Joint swelling, Joint Tenderness Skin: Denies: Dryness, Jaundice, Pruritis, Rash, Wounds Neurological: Denies: Difficulty swallowing, Focal weakness, Numbness, Tingling Psychiatric: Denies: Anxiety, Depression, Homicidal Ideations, Suicidal Ideations Hematologic/ Lymphatic: Denies: Easy Bruising, Easy Bleeding VTE Information - Inpt Only VTE Present on Admission: No VTE Pharm Prophylaxis ordered?: Yes Patient Problems: Active and Suspected Problems Chest pain (Acute) - Physical Exam General: Alert, Oriented x3, Cooperative, No apparent distress HEENT: Atraumatic, PERRLA, EOMI, Normocephalic Oral: Moist Mucosa Neck: Supple Lungs: Clear to auscultation, Normal air movement Cardiovascular: Regular rate, Regular Rhythm, Normal S1, Normal S2, No murmurs, - - mildline scar, left sided pacemaker Abdomen: Bowel Sounds Present, Soft, Non Tender, Non-Distended, No Hepato-splenomegaly Extremities: No edema Skin: No rashes, No breakdown Musculoskeletal: No Tenderness to Palpation of Joints or Extremities Lymphatic: No Cervical, Supraclavicular, or Inguinal Adenopathy Neurological: Cranial nerves II-XII grossly intact Psych/Mental Status: Normal Affect, Appropriate Vital Signs Temp Pulse Resp BP Pulse Ox 98.1 F 84 20 H 152/81 H 99 09/01/18 08:26 09/01/18 09:55 09/01/18 08:55 09/01/18 09:55 09/01/18 08:55 Oxygen Flow Rate (L/min) 2 Oxygen Delivery Method Nasal Cannula Weight: 87 kg Body Mass Index (BMI) 29.1 Laboratory Tests Past 24 Hrs 09/01/18 09/01/18 08:46 08:46 WBC 9.9 RBC 4.45 L Hgb 13.8 Hct 40.7 MCV 91.5 MCH 31.0 MCHC 33.9 RDW 14.7 H RDW Differential 49.6 H Plt Count 398 MPV 9.8 Immature Gran % (Auto) 0.200 Neut % (Auto) 78.7 H Lymph % (Auto) 14.6 L Berg[place] % (Auto) 4.5 Eos % (Auto) 1.7 Baso % (Auto) 0.3 Absolute Neuts (auto) 7.8 H Absolute Lymphs (auto) 1.45 Total Counted Not Reportable Sodium 139 Potassium 4.2 Chloride 105 Carbon Dioxide 28.0 Anion Gap 6 BUN 13 Creatinine 1.09 Estim Creat Clear Calc 63.62 Est GFR (MDRD) Af Amer 87 Est GFR (MDRD) Non-Af 72 BUN/Creatinine Ratio 11.9 Glucose 150 H Calcium 9.1 Troponin I < 0.015 Assessment/Plan All Active Problems Chest pain (Acute) 68 year old M with PMHx of CAD status post CABG, status post stents, hypertension, hyperlipidemia, status post pacemaker who presents with chest pain, described as midsternal, radiates to the left sided, associated nausea and light headedness. 1. Chest pain, recurrent, in a patient with underlying history of CAD status post CABG, follows with [facility], initial EKG shows no acute ST changes Troponin is negative, chest x-ray negative Plan:Admit to PCU, monitor on telemetry, trend troponins, stress test in a.m., 2D echo, Obtain records from [facility] Continue on aspirin, beta-jennifer, losartan, statin, nitro as needed 2. Nicotine dependence, on replacement 3. Hypertension, fairly controlled, continue on amlodipine, beta-jennifer, losartan 4. Status post pacemaker 5. DVT prophylaxis heparin subcu Code Visit Inpatient E&M: 31022 Init Hosp L3
--- NOTE | 2018-09-01 10:10 | ED.VISSUMM ---
- ER Visit Summary Date of Service: 09/01/18 Chief Complaint: Midsternal chest pain History of Present Illness: The patient is a 68 M history of CAD, NV, CHF, hypertension, high cholesterol. Status post triple bypass in 2005. Pacemaker. Patient is also had a colostomy from diverticulitis. States that hour prior to arrival he got midsternal chest pain. Denies any radiation. Since then aching and throbbing sensation. Is been constant. He did take nitroglycerin at home with limited relief. Associated dyspnea and nausea. No history of DVT, PE, travel or recent hospitalization. No leg pain or swelling. No hemoptysis. Physical Examination: Well-appearing older male. Vital signs are stable. On 2 L 9 9%. No hypoxia. HEENT exam unremarkable. Neck nontender no JVD. Lungs clear to auscultation bilaterally. Heart regular rhythm no murmur. Pacemaker on the left. Well-healed sternotomy. Abdomen soft nontender normal bowel sounds no peritoneal signs. He does have a colostomy bag with stool in the right lower quadrant. Patient is moving all 4 extremities. Neurovascular intact. Calves are nontender without cords. Equal symmetrical radial pulses. Back is nontender. Neurologically he is awake alert with no focal motor deficits. Test Results: Chest x-ray shows cardiomegaly. Prior sternotomy and a left-sided pacemaker. No acute process read both of myself and the radiologist. EKG sinus tachycardia rate of 101 with artifact laterally. No acute NV. CBC shows a white count of 9. Hemoglobin 13. Electrolytes unremarkable. Troponin normal. Patient was treated with aspirin and nitro sublingual series. Limited relief. He was given morphine and Zofran for his pain. And topical nitroglycerin. Repeat exam is doing well at de 9:50 AM. Emergency Department Course and Treatment: Patient treated as potentially cardiac chest pain. Treatment Plan: Patient's work-up is unremarkable at this time. I do feel he needs further evaluation and repeat cardiac enzymes. I very spoken to the hospitalist about the PCU admission. Disposition: +23 hours observation Impression: Acute chest pain uncertain etiology History of CAD, CABG and pacemaker This note was generated with [employer] dictation software. It may contain incorrect words, spelling, and punctuation that were not noted in review of the chart prior to signing ED Disposition - Plan for ED Patient: [facility]errals: [facility] [Primary Care Provider] -
--- NOTE | 2018-09-01 10:13 | ED.DCSUM_ITS ---
- ER Visit Summary Date of Service: 09/01/18 Chief Complaint: Midsternal chest pain History of Present Illness: The patient is a 68 M history of CAD, CT, CHF, hypertension, high cholesterol. Status post triple bypass in 2005. Pacemaker. Patient is also had a colostomy from diverticulitis. States that hour prior to arrival he got midsternal chest pain. Denies any radiation. Since then aching and throbbing sensation. Is been constant. He did take nitroglycerin at home with limited relief. Associated dyspnea and nausea. No history of DVT, PE, travel or recent hospitalization. No leg pain or swelling. No hemoptysis. Physical Examination: Well-appearing older male. Vital signs are stable. On 2 L 9 9%. No hypoxia. HEENT exam unremarkable. Neck nontender no JVD. Lungs clear to auscultation bilaterally. Heart regular rhythm no murmur. Pacemaker on the left. Well-healed sternotomy. Abdomen soft nontender normal bowel sounds no peritoneal signs. He does have a colostomy bag with stool in the right lower quadrant. Patient is moving all 4 extremities. Neurovascular intact. Calves are nontender without cords. Equal symmetrical radial pulses. Back is nontender. Neurologically he is awake alert with no focal motor deficits. Test Results: Chest x-ray shows cardiomegaly. Prior sternotomy and a left-sided pacemaker. No acute process read both of myself and the radiologist. EKG sinus tachycardia rate of 101 with artifact laterally. No acute CT. CBC shows a white count of 9. Hemoglobin 13. Electrolytes unremarkable. Troponin normal. Patient was treated with aspirin and nitro sublingual series. Limited relief. He was given morphine and Zofran for his pain. And topical nitroglycerin. Repeat exam is doing well at ak 9:50 AM. Emergency Department Course and Treatment: Patient treated as potentially cardiac chest pain. Treatment Plan: Patient's work-up is unremarkable at this time. I do feel he needs further evaluation and repeat cardiac enzymes. I very spoken to the hospitalist about the PCU admission. Disposition: +23 hours observation Impression: Acute chest pain uncertain etiology History of CAD, CABG and pacemaker This note was generated with [employer] dictation software. It may contain incorrect words, spelling, and punctuation that were not noted in review of the chart prior to signing ED Disposition - Plan for ED Patient: [facility]errals: [facility] [Primary Care Provider] -
--- NOTE | 2018-09-01 10:14 | NURSING ---
PCU CP PAINTSIL
--- NOTE | 2018-09-01 11:03 | ECHOCS_ITS ---
Reason For Study: Dyspnea/SOB Procedure This was a 2D Doppler, Color Flow transthoracic echocardiogram. Contrast injection was performed. Exam performed portable in patient room. Left Ventricle Moderately dilated left ventricle. The estimated ejection fraction is 35 %. Stage 1 diastolic dysfunction. Moderate segmental systolic dysfunction (see wall motion). Mid-Inferior: Akinetic. Infero-Basal: Akinetic. Basal inferoseptal: Akinetic. Mid-Lateral : Normal. Lateral-Basal: Normal. There are regional wall motion abnormalities as specified. Right Ventricle Normal RV size. Normal systolic function. Atria Normal left atrium. Normal right atrium. ICD or pacer leads identified within the right atrium. Mitral Valve Normal mitral valve. Mild (1+) eccentric mitral valve insufficiency. Tricuspid Valve Normal tricuspid valve. Mild tricuspid valve insufficiency. Aortic Valve Normal aortic valve. Trisinus/trileaflet aortic valve. Pulmonic Valve The pulmonic valve is not well visualized. Great Vessels Normal aortic root. The pulmonary artery is normal size. Normal inferior vena cava. Pericardium/Pleural No pericardial effusion. Medication Diluted definity 3ml given slow IV push to enhance endocardial definition. MMode/2D Measurements & Calculations LVIDd: 6.0 cm IVSd: 1.4 cm Ao root diam: 2.8 cm LVIDs: 5.2 cm LVPWd: 0.99 cm RVDd: 3.9 cm FS: 12.7 % LAV(MOD-bp): 54.8 ml LVAd ap4: 36.5 cm2 SV(MOD-sp4): 42.3 ml LAV(MOD-bp) Indexed: 27.7 ml/m2 EDV(MOD-sp4): 132.7 ml LAV(MOD-sp2): 46.1 ml EDV(sp4-el): 133.1 ml LAV(MOD-sp4): 59.4 ml LVAs ap4: 29.0 cm2 ESV(MOD-sp4): 90.4 ml ESV(sp4-el): 90.4 ml EF(MOD-sp4): 31.8 % EF(sp4-el): 32.1 % SV(sp4-el): 42.7 ml LA A4 area: 20.7 cm2 LA dimension(2D): 4.2 cm RA A4 area: 11.7 cm2 Doppler Measurements & Calculations MV E max justin: 65.9 cm/sec Lat Peak E' Justin: 4.5 cm/sec Med Peak E' Justin: 3.6 cm/sec MV A max justin: 102.6 cm/sec E/E' lat: 14.6 E/E' med: 18.2 MV E/A: 0.64 Ao V2 max: 121.3 cm/sec LV V1 max: 83.8 cm/sec PA V2 max: 91.1 cm/sec Ao max P.9 mmHg LV V1 max P.8 mmHg Ao V2 mean: 89.3 cm/sec Ao mean P.4 mmHg Ao V2 VTI: 27.3 cm TR max justin: 162.7 cm/sec TR max P.6 mmHg Interpretation Summary Moderately dilated left ventricle. The estimated ejection fraction is 35 %. Stage 1 diastolic dysfunction. Mild (1+) eccentric mitral valve insufficiency. Moderate segmental systolic dysfunction (see wall motion). Ordering Physician: Saray Blanton Referring Physician: [facility] Performed By: Maribell Silva, JOSEFINA, RVT
--- NOTE | 2018-09-01 11:03 | EKG12_ITS ---
Test Reason : Blood Pressure : / mmHG Vent. Rate : 081 BPM Atrial Rate : 081 BPM P-R Int : 210 ms QRS Dur : 104 ms QT Int : 422 ms P-R-T Axes : 050 032 079 degrees QTc Int : 490 ms Sinus rhythm with 1st degree A-V block with occasional Premature ventricular complexes Inferior infarct , age undetermined Abnormal ECG When compared with ECG of 25-JUN-2018 08:48, Premature ventricular complexes are now Present Confirmed by MEERA METCALF, MAGGI ([id number]), health editor LYNN RM ([id number]) on 09/03/2018 2:02:01 PM Referred By: MICHELE Confirmed By:MAGGI ESTES MD
[2018-09-01] MEDS: Morphine 2 MG/ML Syringe 1 MG IV ×2 (11:52→13:21)
--- NOTE | 2018-09-01 13:28 | CT_ITS ---
STUDY: CT CHEST WITHOUT CONTRAST REASON FOR EXAM: Male, 68 years old. Chest pain, abnormal chest x-ray, possible mass versus diaphragmatic hernia RADIATION DOSAGE (If Supplied By Facility): CTDIvol = ( 17.54 ) mGy, DLP = ( 748.04 ) mGycm TECHNIQUE: Transaxial imaging was performed without the administration of intravenous contrast material. Multiplanar coronal and sagittal images were reformatted. Individualized dose optimization techniques were used for this CT. COMPARISON: Chest x-ray of 09/01/2018 FINDINGS: Dual-chamber cardiac conduction device with leads extending to the right atrium and right ventricle. There is scattered emphysematous changes of the right more than left upper lobe. No cavitating parenchymal process. No spiculated mass. There is no demonstrated pleural abnormality. Heart size is normal. Coronary artery stent noted. Normal mediastinum. Normal hilar regions. Normal unenhanced pulmonary arteries. There is atherosclerotic calcification of the aortic arch with tortuosity and elongation of the aortic arch and descending thoracic aorta. There are surgical clips above the sternum, midline. Sternal wires and mediastinal surgical clips compatible with prior CABG. Thickening of the left more than right adrenal gland similar since abdomen/pelvis CT of 09/19/2017. Left renal cyst is grossly similar in size but is intermediate in density. Calcifications of the left kidney are grossly similar. There is a small hernia (hernia defect measures 1.9 cm; hernia sac measures 2.9 x 5.8 cm) of the mid left diaphragm with herniation of portion of the stomach into the left subpulmonic space with small amount of peritoneal fat, correlated abnormality on recent chest x-ray. No associated fluid or gastric wall thickening to suggest ischemia. CT/Chest without Contrast IMPRESSION: 1. 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 2. Indeterminate density lesion of the left kidney is stable in size. May represent proteinaceous cyst. Follow-up ultrasound is suggested. 3. CABG. Cardiac conduction device. 4. Bilateral adrenal gland hyperplasia similar since prior CT abdomen and pelvis. Electronically Signed: Alli Mederos MD at 18:45 EDT , Service support ,
[2018-09-01] MEDS: oxyCODONE 5 MG Tablet 10 MG PO ×2 (16:27→20:44)
[2018-09-01] MEDS: Heparin Injection (Vial) 5,000 UNIT/ML VIAL 5000 UNIT SC (22:14)
[2018-09-01] MEDS: Gabapentin 600 MG Tablet PO (22:14)
[2018-09-01] MEDS: Metoprolol(XL)Succ 100 MG Tablet PO (22:14)
[2018-09-01] MEDS: Pravastatin 40 MG Tablet PO (22:14)
[2018-09-01] MEDS: QUEtiapine 100 MG Tablet 200 MG PO (22:14)
[2018-09-02] VITALS (8 sets, daily range): BP systolic 118–142; BP diastolic 51–80; PULSE 60–71; RESP 16–18; TEMP 36.4–36.7; O2SAT 92–99
[2018-09-02] MEDS: oxyCODONE 5 MG Tablet 10 MG PO ×3 (04:06→12:44)
[2018-09-02] MEDS: 0.9% NaCl Peripheral Flush Adult/Peds IV (04:06)
[2018-09-02 05:29] LABS: Hematocrit 39.1 % (40-54); Hemoglobin 12.7 g/dl (13.0-16.5); Mean Corp Hgb Conc 32.5 g/gl (32-36); Mean Corpuscular Volume 92.2 fL (80-94); Mean Platelet Vol. 9.8 fl (6.2-12.0); Platelet Count 330 K/mm3 (150-450); RBC Distribution Width CV 15.1 % (11.6-14.6); RBC Distribution Width SD 49.5 fl (35.1-43.9); Red Blood Count 4.24 M/mm3 (4.6-6.2); White Blood Count 8.6 K/mm3 (4.4-11.0)
[2018-09-02 05:31] LABS: Scan Indicated on CBC? Y/N NO
[2018-09-02] MEDS: Losartan Potassium 100 MG Tablet PO (05:38)
[2018-09-02] MEDS: Aspirin E.C. 81 MG Tablet PO (05:38)
[2018-09-02 05:48] LABS: Anion Gap 5 (5-15); BUN 16 mg/dL (7-18); BUN/Creat Ratio 15.4 RATIO (10-20); Calcium,Total 9.1 mg/dL (8.5-10.1); Chloride 108 mmol/L (98-107); Creatinine, Serum 1.04 mg/dL (0.70-1.30); EST Glomerular Filtration Rate 76 mL/min (>60); Est Glom Filt Rate - Afr Amer 92 mL/min (>60); Estimated Creatinine Clearance 66.68 ml/min; Glucose 102 mg/dL (74-106); Potassium 4.1 mmol/L (3.5-5.1); Sodium Level 142 mmol/L (136-145)
[2018-09-02 05:50] LABS: International Normalized Ratio 1.1; Prothrombin Time (Protime)PT. 13.9 SECONDS (11.7-14.9)
[2018-09-02 05:51] LABS: Partial Thromboplast Time 35.3 Seconds (24.1-36.2)
--- NOTE | 2018-09-02 05:55 | EKG12_ITS ---
Test Reason : AM EKG Blood Pressure : / mmHG Vent. Rate : 060 BPM Atrial Rate : 060 BPM P-R Int : 290 ms QRS Dur : 106 ms QT Int : 740 ms P-R-T Axes : 042 029 080 degrees QTc Int : 740 ms Atrial-paced rhythm with prolonged AV conduction RSR' or QR pattern in V1 suggests right ventricular conduction delay Possible Inferior infarct , age undetermined Abnormal ECG Confirmed by MEERA METCALF, MAGGI ([id number]), electronic news gathering editor LYNN RM ([id number]) on 09/03/2018 1:59:36 PM Referred By: SURAJ Confirmed By:MAGGI ESTES MD
--- NOTE | 2018-09-02 05:55 | RAD_ITS ---
STUDY: X-RAY CHEST REASON FOR EXAM: Male, 68 years old. Chest pain. TECHNIQUE: PA and lateral views of the chest. COMPARISON: September 01, 2018. FINDINGS: There is stable appearance and position of the 2-lead left pectoral pacemaker. There is no pleural effusion. There is no pneumothorax. The patient is status post CABG with borderline cardiomegaly. The previously described soft tissue marginated lucency within the left lung base appears to now be of uniform soft tissue density and again may represent herniation of a small region of the stomach through a left hemidiaphragm defect versus partial eventration of the left hemidiaphragm. There is no central vascular congestion. There is no evidence of overt failure. There is no evident acute osseous abnormality. There are diffuse degenerative changes of the thoracic spine There is no demonstrated abnormality of the visualized soft tissue structures of the upper abdomen. RAD/Chest PA and Lateral IMPRESSION: Status post CABG with stable borderline enlargement of the cardiomediastinal silhouette, stable. No central vascular congestion. No overt failure. No pleural effusion. No pneumothorax. Persistent left medial lung base finding as above. Please see discussion above. Stable appearance and position of the 2-lead left pectoral pacemaker. No plain film evident acute osseous abnormality. Electronically Signed: Alfonzo Conroy MD at 8:11 EDT , Service support ,
[2018-09-02 09:36] LABS: D-Dimer Quantitative (DVT/PE) 0.69 FEU/ug/m (0.27-0.49)
--- NOTE | 2018-09-02 09:40 | CT_ITS ---
STUDY: CTA CHEST REASON FOR EXAM: Male, 68 years old. Shortness of breath with chest pain and elevated d-dimer RADIATION DOSAGE (If Supplied By Facility): CTDIvol = ( 14.64 ) mGy, DLP = ( 529.59 ) mGycm TECHNIQUE: The examination was performed with the intravenous administration of 100 IV Isovue 370. Post-processing of the angiographic images was performed, with multiplanar reformation and 3D reconstruction. Individualized dose optimization techniques were used for this CT. COMPARISON: 09/01/2018 FINDINGS: Normal enhancement of the main pulmonary artery and right and left pulmonary arteries. Normal enhancement of the bilateral peripheral pulmonary arteries. There is no demonstrated pulmonary embolism. Normal thoracic aorta and visualized great vessels. There is no demonstrated aortic dissection. Mild cardiomegaly. Sternal wires. Stable left chest wall pacing device. Normal mediastinum. Normal hilar regions. Normal visualized trachea and bronchi. The lungs are well expanded. Mild emphysema in the right upper lobe. Normal pulmonary parenchyma. Normal pleura. Unchanged soft tissue nodule in the right upper lobe, suspicious. Measures 9 mm. Stable calcified left lung base nodule. Normal chest wall structures. There are degenerative changes of thoracic spine. Stable left hemidiaphragm herniation. Remainder of the upper abdomen is stable. CT/CTA Chest W/WO Contrast IMPRESSION: 1. Negative for pulmonary embolus or thoracic aortic dissection. 2. Suspicious nodule in the right upper lobe measuring 9 mm. Consider PET/CT to further evaluate; as malignancy is not excluded. 3. Remaining chronic findings are stable Electronically Signed: Andrés Rodas DO at 12:23 EDT Tel , Service support ,
--- NOTE | 2018-09-02 12:28 | STRESSREP ---
Stress Test Report Pharmacologic myocardial perfusion stress test. 68-year-old man with a history of known coronary artery disease, status post bypass surgery, status post permanent pacemaker implantation. Stress protocol: Resting EKG demonstrates normal sinus rhythm with a rate of 60 bpm resting blood pressures 150/80 mmHg. 0.4 mg of regadenoson was infused per usual protocol followed by rapid intravenous saline flush injection continuous EKG monitoring was performed. The maximum heart rate attained was 82 bpm which was 53% of maximum predicted heart rate the maximum workload was 1 metabolic equivalent. At rest there were no ST or T wave changes noted to suggest abnormal flow reserve. The patient was noted to be in a ventricular paced rhythm. The resting blood pressure was 150/80 mmHg with a final blood pressure 142/74 mmHg. There were no ST or T wave changes noted to suggest abnormal flow reserve. Myocardial perfusion protocol. 12.0 mCi of technetium 99m sestamibi was injected at rest. 0.4 mg of regadenoson was infused per usual protocol at peak infusion 33.3 mCi of technetium 99m sestamibi was injected stress images were obtained stress and rest images were reconstructed in comparing the short axis vertical long horizontal long axis. Gated images were also obtained per Perfusion SPECT analysis: Review of the stress images demonstrate a mildly dilated cardiac silhouette size. The septum anterior wall and lateral wall appeared to be well perfused. There is a large perfusion defect noted involving the base to mid to distal inferior wall. The resting images demonstrate a similar pattern. The above is suggestive of a previous extensive inferior infarct. No obvious ischemia is noted. Gated SPECT analysis: The gated ejection fraction is noted to be 36% with severe hypokinesis to akinesis of the inferior wall. Conclusion: ischemic cardiomyopathy. Previous extensive inferior infarct. No ischemia noted.
--- NOTE | 2018-09-02 12:41 | PCM.CONS.PUL ---
Reason for Consult Date of Consultation: 09/02/18 Reason for Consultation: Pulmonary nodule History of Present Illness: The patient is a 68-year-old male, with a history as outlined below, who presented to the emergency department on September 01 with complaints of chest pain. The patient does have a history of coronary artery disease for which he is status post CABG. The patient is a current smoker of 0.5 packs of cigarettes per day. Previously, he smoked upwards of 1 pack of cigarettes per day x40 years. He does not currently follow with a kitchen worker. He receives most of his care through the [facility] system. He has never had PFTs, but does have access to a nebulizer in his home environment, which she reports he uses on an infrequent basis. He denies ever having had a CAT scan of his chest done outside of our medical institution. He denies the presence of hemoptysis. He reports that his appetite is good and his weight has been stable. On presentation to the emergency department, the patient was noted to be afebrile and hypertensive. He was maintaining appropriate oxygen saturations on room air. Laboratory evaluation revealed no evidence of a leukocytosis. Chemistry profile was largely unremarkable. Troponin was negative. Initial plain film chest x-ray revealed findings concerning for potential subcentimeter soft tissue nodule in the left lung base. On follow-up CT chest, it was confirmed that the aforementioned finding was related to a small hernia with a portion of the stomach noted to have herniated into the left subpulmonic space. The patient was subsequently admitted to the progressive care unit for ongoing management. As of this morning, the patient remains afebrile and hemodynamically stable. A d-dimer was obtained this morning and found to be mildly elevated at 0.69. A CTA chest was then ordered which revealed no evidence for pulmonary embolism. However, there was evidence of a right apical lung nodule, which was present on the patient's noncontrasted chest CT from the day earlier. 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 The gated ejection fraction was noted to be 36%. Past Medical History Past Medical History (Chronic Problems): Chronic Problems Hypertension (Chronic) CAD (coronary atherosclerotic disease) (Chronic) Allergies atorvastatin Allergy (Verified 07/23/18 16:55) Angioedema diclofenac [From Voltaren] Allergy (Verified 07/23/18 16:55) Angioedema hydrochlorothiazide Allergy (Verified 07/23/18 16:55) Angioedema moxifloxacin Allergy (Verified 07/23/18 16:55) Angioedema ramipril Allergy (Verified 07/23/18 16:55) Angioedema rosuvastatin [From Crestor] Allergy (Verified 07/23/18 16:55) Angioedema simvastatin Allergy (Verified 07/23/18 16:55) Angioedema ticagrelor [From Brilinta] Allergy (Verified 07/23/18 16:55) Shortness of breath Home Medications: Ambulatory Orders Medication Instructions Recorded Albuterol Inhaler [Ventolin Hfa] 2 puff INHALATION Q6H PRN PRN 12/15/16 Aspirin E.C. [Ecotrin] 81 mg PO DAILY@0800 12/15/16 Furosemide [Lasix] 40 mg PO DAILY PRN PRN 12/15/16 Gabapentin [Neurontin] 600 mg PO QHS 12/15/16 Losartan Potassium [Cozaar] 100 mg PO DAILY 12/15/16 Metoprolol(XL)Succ [Toprol Xl 100 mg PO QHS 12/15/16 (Beta Jennifer)] Multivitamin,Therapeutic [Thera] 1 each PO DAILY 12/15/16 Nitroglycerin [Nitrostat] 0.4 mg SL Q5M PRN 12/15/16 Pravastatin [Pravachol] 40 mg PO QHS 12/15/16 Quetiapine Fumarate [Seroquel] 200 mg PO QHS 12/15/16 Vitamin B Complex/Folic Acid 0.4 mg PO DAILY 12/15/16 [Super B Maxi Complex Caplet] Amlodipine [Norvasc] 10 mg PO DAILY 12/31/16 Percocet 5-325 mg Tablet 2 tab PO Q4H PRN PRN 09/01/18 Surgical History: - - colectomy s/p colostomy, pacemaker insertion Psychiatric History: No pertinent psych hx Lives: Spouse/ Significant Other, With Family Smoking Status: Current every day smoker Tobacco Use: Cigarettes Alcohol: None Drugs: None - *Family History Paternal History Items: High Cholesterol, Heart Disease, Hypertension Maternal History Items: No pertinent history Review of Systems Constitutional: Denies: Chills, Fever, Weight Change HEENT: Denies: Head Aches, Sinus Congestion, Sinus Drainage Cardiovascular: Reports: Chest Pain Respiratory: Denies: Cough, Shortness of breath at rest, Sputum production Gastrointestinal: Denies: Abdominal Pain, Nausea, Vomiting Genitourinary: Denies: Dysuria Musculoskeletal: Denies: Joint Pain, Joint Tenderness Skin: Denies: Rash, Wounds Neurological: Denies: Numbness, Tingling, Focal weakness Psychiatric: Denies: Anxiety, Depression, Homicidal Ideations, Suicidal Ideations Hematologic/ Lymphatic: Denies: Easy Bruising, Easy Bleeding Objective: The patient's most recent lab work, culture data and imaging studies have all been personally reviewed. - Physical Exam General: Alert, Cooperative, No apparent distress HEENT: Atraumatic, PERRLA, Normocephalic Oral: No Gingival or Mucosal Lesions/ Ulcerations Neck: Supple, No Nodes, Trachea Midline Lungs: No rhonchi, No wheeze, No rales, Diminished Cardiovascular: Regular rate, Regular Rhythm, Normal S1, Normal S2 Abdomen: Bowel Sounds Present, Soft, Non Tender, Non-Distended Extremities: No clubbing, No cyanosis, No edema Skin: No breakdown Musculoskeletal: No Tenderness to Palpation of Joints or Extremities, No Muscle Wasting Lymphatic: No Cervical, Supraclavicular, or Inguinal Adenopathy Neurological: Cranial nerves II-XII grossly intact, Neuro grossly intact Psych/Mental Status: Normal Affect, Appropriate Vital Signs Temp Pulse Resp BP Pulse Ox 98.0 F 63 17 118/51 L 97 09/02/18 12:36 09/02/18 12:36 09/02/18 12:36 09/02/18 12:36 09/02/18 12:36 Oxygen Flow Rate (L/min) 3 Oxygen Delivery Method Room Air Weight: 186 lb 4.65 oz Body Mass Index (BMI) 28.9 Intake and Output for Last 24 Hours 08/31/18 09/01/18 09/02/18 23:59 23:59 23:59 Intake Total 720 / 720 255 / 255 Balance 720 / 720 255 / 255 Laboratory Tests Past 24 Hrs 09/01/18 09/02/18 09/02/18 14:35 05:00 05:00 WBC 8.6 RBC 4.24 L Hgb 12.7 L Hct 39.1 L MCV 92.2 MCH 30.0 MCHC 32.5 RDW 15.1 H RDW Differential 49.5 H Plt Count 330 MPV 9.8 PT INR APTT D-Dimer Quant (PE/DVT) Sodium 142 Potassium 4.1 Chloride 108 H Carbon Dioxide 29.0 Anion Gap 5 BUN 16 Creatinine 1.04 Estim Creat Clear Calc 66.68 Est GFR (MDRD) Af Amer 92 Est GFR (MDRD) Non-Af 76 BUN/Creatinine Ratio 15.4 Glucose 102 Calcium 9.1 Troponin I 0.025 09/02/18 09/02/18 05:00 05:00 WBC RBC Hgb Hct MCV MCH MCHC RDW RDW Differential Plt Count MPV PT 13.9 INR 1.1 APTT 35.3 D-Dimer Quant (PE/DVT) 0.69 H* Sodium Potassium Chloride Carbon Dioxide Anion Gap BUN Creatinine Estim Creat Clear Calc Est GFR (MDRD) Af Amer Est GFR (MDRD) Non-Af BUN/Creatinine Ratio Glucose Calcium Troponin I Clinical Impression(s) from Imaging Studies Chest X-Ray 09/01/18 08:39 IMPRESSION: Status post CABG with stable borderline enlargement of the cardiomediastinal silhouette size. No plain film evidence of overt failure. No pleural effusion. No pneumothorax. Soft tissue marginated lucency in the mid left lung base may represent a pulmonary cavitary lesion versus a portion of the proximal stomach herniated through a left hemidiaphragm defect. Stable appearance and position of the 2-lead left pectoral pacemaker. No plain film evident acute osseous abnormality. Electronically Signed: Alfonzo Conroy MD at 9:28 EDT , Service support , Chest CT 09/01/18 13:28 IMPRESSION: 1. 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 2. Indeterminate density lesion of the left kidney is stable in size. May represent proteinaceous cyst. Follow-up ultrasound is suggested. 3. CABG. Cardiac conduction device. 4. Bilateral adrenal gland hyperplasia similar since prior CT abdomen and pelvis. Electronically Signed: Alli Mederos MD at 18:45 EDT , Service support , Chest X-Ray 09/02/18 05:55 IMPRESSION: Status post CABG with stable borderline enlargement of the cardiomediastinal silhouette, stable. No central vascular congestion. No overt failure. No pleural effusion. No pneumothorax. Persistent left medial lung base finding as above. Please see discussion above. Stable appearance and position of the 2-lead left pectoral pacemaker. No plain film evident acute osseous abnormality. Electronically Signed: Alfonzo Conroy MD at 8:11 EDT , Service support , Chest CTA 09/02/18 09:40 IMPRESSION: 1. Negative for pulmonary embolus or thoracic aortic dissection. 2. Suspicious nodule in the right upper lobe measuring 9 mm. Consider PET/CT to further evaluate; as malignancy is not excluded. 3. Remaining chronic findings are stable Electronically Signed: Andrés Rodas DO at 12:23 EDT Tel , Service support , Assessment/Plan All Active Problems Chest pain (Acute) RECOMMENDATIONS: 1. Outpatient pulmonary follow-up is strongly recommended so that repeat CT chest and PFTs can be obtained. 2. Given the subcentimeter size of the patient's pulmonary nodule, recommend repeat CT chest in 3 months. 3. Smoking cessation is strongly advised. IMPRESSIONS: 1. Subcentimeter pulmonary nodule The patient did have evidence of a subcentimeter right apical pulmonary nodule noted on CT chest. The patient is an active smoker. I would recommend that the patient be monitored per the 2017 Fleischner Society recommendations for the management of incidentally detected pulmonary nodules. I would consider the patient to be a high risk individual, with options for proceeding including a repeat CT chest in 3 months versus direct tissue biopsy. Given the subcentimeter size of the patient's pulmonary nodule and the sensitivity for PET scans detecting significant lesions less than 1 cm in size, would recommend repeat CT chest in 3 months. In addition, would recommend that the patient follow-up in the pulmonary medicine clinic so that outpatient longitudinal screening can be established. We can attempt, at that time, to obtain any [place] health system records that may include imaging studies of the patient's chest. 2. Continuous tobacco dependency/suspected COPD The patient was counseled regarding the deleterious effects of ongoing tobacco utilization. Smoking cessation is advisable. The patient would benefit from undergone pulmonary function studies to establish or refute a diagnosis of obstructive lung disease. Again, this would need to be accomplished on an outpatient basis. This note was generated with [employer] dictation software. It may contain incorrect words, spelling, and punctuation that were not noted in checking the note before signing. Code Visit Inpatient E&M: 90085 Init Hosp L3
[2018-09-02] MEDS: Multivitamins,Therapeutic Tablet 1 TABLET PO (12:44)
[2018-09-02] MEDS: amLODIPine 10 MG Tablet PO (12:44)
--- NOTE | 2018-09-02 12:44 | CON.PCM_ITS ---
Reason for Consult Date of Consultation: 09/02/18 Reason for Consultation: Pulmonary nodule History of Present Illness: The patient is a 68-year-old male, with a history as outlined below, who presented to the emergency department on September 01 with complaints of chest pain. The patient does have a history of coronary artery disease for which he is status post CABG. The patient is a current smoker of 0.5 packs of cigarettes per day. Previously, he smoked upwards of 1 pack of cigarettes per day x40 years. He does not currently follow with a duct cleaner. He receives most of his care through the [facility] system. He has never had PFTs, but does have access to a nebulizer in his home environment, which she reports he uses on an infrequent basis. He denies ever having had a CAT scan of his chest done outside of our medical institution. He denies the presence of hemoptysis. He reports that his appetite is good and his weight has been stable. On presentation to the emergency department, the patient was noted to be afebrile and hypertensive. He was maintaining appropriate oxygen saturations on room air. Laboratory evaluation revealed no evidence of a leukocytosis. Chemistry profile was largely unremarkable. Troponin was negative. Initial plain film chest x-ray revealed findings concerning for potential subcentimeter soft tissue nodule in the left lung base. On follow-up CT chest, it was confirmed that the aforementioned finding was related to a small hernia with a portion of the stomach noted to have herniated into the left subpulmonic space. The patient was subsequently admitted to the progressive care unit for ongoing management. As of this morning, the patient remains afebrile and hemodynamically stable. A d-dimer was obtained this morning and found to be mildly elevated at 0.69. A CTA chest was then ordered which revealed no evidence for pulmonary embolism. However, there was evidence of a right apical lung nodule, which was present on the patient's noncontrasted chest CT from the day earlier. 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 The gated ejection fraction was noted to be 36%. Past Medical History Past Medical History (Chronic Problems): Chronic Problems Hypertension (Chronic) CAD (coronary atherosclerotic disease) (Chronic) Allergies atorvastatin Allergy (Verified 07/23/18 16:55) Angioedema diclofenac [From Voltaren] Allergy (Verified 07/23/18 16:55) Angioedema hydrochlorothiazide Allergy (Verified 07/23/18 16:55) Angioedema moxifloxacin Allergy (Verified 07/23/18 16:55) Angioedema ramipril Allergy (Verified 07/23/18 16:55) Angioedema rosuvastatin [From Crestor] Allergy (Verified 07/23/18 16:55) Angioedema simvastatin Allergy (Verified 07/23/18 16:55) Angioedema ticagrelor [From Brilinta] Allergy (Verified 07/23/18 16:55) Shortness of breath Home Medications: Ambulatory Orders Medication Instructions Recorded Albuterol Inhaler [Ventolin Hfa] 2 puff INHALATION Q6H PRN PRN 12/15/16 Aspirin E.C. [Ecotrin] 81 mg PO DAILY@0800 12/15/16 Furosemide [Lasix] 40 mg PO DAILY PRN PRN 12/15/16 Gabapentin [Neurontin] 600 mg PO QHS 12/15/16 Losartan Potassium [Cozaar] 100 mg PO DAILY 12/15/16 Metoprolol(XL)Succ [Toprol Xl 100 mg PO QHS 12/15/16 (Beta Jennifer)] Multivitamin,Therapeutic [Thera] 1 each PO DAILY 12/15/16 Nitroglycerin [Nitrostat] 0.4 mg SL Q5M PRN 12/15/16 Pravastatin [Pravachol] 40 mg PO QHS 12/15/16 Quetiapine Fumarate [Seroquel] 200 mg PO QHS 12/15/16 Vitamin B Complex/Folic Acid 0.4 mg PO DAILY 12/15/16 [Super B Maxi Complex Caplet] Amlodipine [Norvasc] 10 mg PO DAILY 12/31/16 Percocet 5-325 mg Tablet 2 tab PO Q4H PRN PRN 09/01/18 Surgical History: - - colectomy s/p colostomy, pacemaker insertion Psychiatric History: No pertinent psych hx Lives: Spouse/ Significant Other, With Family Smoking Status: Current every day smoker Tobacco Use: Cigarettes Alcohol: None Drugs: None - *Family History Paternal History Items: High Cholesterol, Heart Disease, Hypertension Maternal History Items: No pertinent history Review of Systems Constitutional: Denies: Chills, Fever, Weight Change HEENT: Denies: Head Aches, Sinus Congestion, Sinus Drainage Cardiovascular: Reports: Chest Pain Respiratory: Denies: Cough, Shortness of breath at rest, Sputum production Gastrointestinal: Denies: Abdominal Pain, Nausea, Vomiting Genitourinary: Denies: Dysuria Musculoskeletal: Denies: Joint Pain, Joint Tenderness Skin: Denies: Rash, Wounds Neurological: Denies: Numbness, Tingling, Focal weakness Psychiatric: Denies: Anxiety, Depression, Homicidal Ideations, Suicidal Ideations Hematologic/ Lymphatic: Denies: Easy Bruising, Easy Bleeding Objective: The patient's most recent lab work, culture data and imaging studies have all been personally reviewed. - Physical Exam General: Alert, Cooperative, No apparent distress HEENT: Atraumatic, PERRLA, Normocephalic Oral: No Gingival or Mucosal Lesions/ Ulcerations Neck: Supple, No Nodes, Trachea Midline Lungs: No rhonchi, No wheeze, No rales, Diminished Cardiovascular: Regular rate, Regular Rhythm, Normal S1, Normal S2 Abdomen: Bowel Sounds Present, Soft, Non Tender, Non-Distended Extremities: No clubbing, No cyanosis, No edema Skin: No breakdown Musculoskeletal: No Tenderness to Palpation of Joints or Extremities, No Muscle Wasting Lymphatic: No Cervical, Supraclavicular, or Inguinal Adenopathy Neurological: Cranial nerves II-XII grossly intact, Neuro grossly intact Psych/Mental Status: Normal Affect, Appropriate Vital Signs Temp Pulse Resp BP Pulse Ox 98.0 F 63 17 118/51 L 97 09/02/18 12:36 09/02/18 12:36 09/02/18 12:36 09/02/18 12:36 09/02/18 12:36 Oxygen Flow Rate (L/min) 3 Oxygen Delivery Method Room Air Weight: 186 lb 4.65 oz Body Mass Index (BMI) 28.9 Intake and Output for Last 24 Hours 08/31/18 09/01/18 09/02/18 23:59 23:59 23:59 Intake Total 720 / 720 255 / 255 Balance 720 / 720 255 / 255 Laboratory Tests Past 24 Hrs 09/01/18 09/02/18 09/02/18 14:35 05:00 05:00 WBC 8.6 RBC 4.24 L Hgb 12.7 L Hct 39.1 L MCV 92.2 MCH 30.0 MCHC 32.5 RDW 15.1 H RDW Differential 49.5 H Plt Count 330 MPV 9.8 PT INR APTT D-Dimer Quant (PE/DVT) Sodium 142 Potassium 4.1 Chloride 108 H Carbon Dioxide 29.0 Anion Gap 5 BUN 16 Creatinine 1.04 Estim Creat Clear Calc 66.68 Est GFR (MDRD) Af Amer 92 Est GFR (MDRD) Non-Af 76 BUN/Creatinine Ratio 15.4 Glucose 102 Calcium 9.1 Troponin I 0.025 09/02/18 09/02/18 05:00 05:00 WBC RBC Hgb Hct MCV MCH MCHC RDW RDW Differential Plt Count MPV PT 13.9 INR 1.1 APTT 35.3 D-Dimer Quant (PE/DVT) 0.69 H* Sodium Potassium Chloride Carbon Dioxide Anion Gap BUN Creatinine Estim Creat Clear Calc Est GFR (MDRD) Af Amer Est GFR (MDRD) Non-Af BUN/Creatinine Ratio Glucose Calcium Troponin I Clinical Impression(s) from Imaging Studies Chest X-Ray 09/01/18 08:39 IMPRESSION: Status post CABG with stable borderline enlargement of the cardiomediastinal silhouette size. No plain film evidence of overt failure. No pleural effusion. No pneumothorax. Soft tissue marginated lucency in the mid left lung base may represent a pulmonary cavitary lesion versus a portion of the proximal stomach herniated through a left hemidiaphragm defect. Stable appearance and position of the 2-lead left pectoral pacemaker. No plain film evident acute osseous abnormality. Electronically Signed: Alfonzo Conroy MD at 9:28 EDT , Service support , Chest CT 09/01/18 13:28 IMPRESSION: 1. 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 2. Indeterminate density lesion of the left kidney is stable in size. May represent proteinaceous cyst. Follow-up ultrasound is suggested. 3. CABG. Cardiac conduction device. 4. Bilateral adrenal gland hyperplasia similar since prior CT abdomen and pelvis. Electronically Signed: Alli Mederos MD at 18:45 EDT , Service support , Chest X-Ray 09/02/18 05:55 IMPRESSION: Status post CABG with stable borderline enlargement of the cardiomediastinal silhouette, stable. No central vascular congestion. No overt failure. No pleural effusion. No pneumothorax. Persistent left medial lung base finding as above. Please see discussion above. Stable appearance and position of the 2-lead left pectoral pacemaker. No plain film evident acute osseous abnormality. Electronically Signed: Alfonzo Conroy MD at 8:11 EDT , Service support , Chest CTA 09/02/18 09:40 IMPRESSION: 1. Negative for pulmonary embolus or thoracic aortic dissection. 2. Suspicious nodule in the right upper lobe measuring 9 mm. Consider PET/CT to further evaluate; as malignancy is not excluded. 3. Remaining chronic findings are stable Electronically Signed: Andrés Rodas DO at 12:23 EDT Tel , Service support , Assessment/Plan All Active Problems Chest pain (Acute) RECOMMENDATIONS: 1. Outpatient pulmonary follow-up is strongly recommended so that repeat CT chest and PFTs can be obtained. 2. Given the subcentimeter size of the patient's pulmonary nodule, recommend repeat CT chest in 3 months. 3. Smoking cessation is strongly advised. IMPRESSIONS: 1. Subcentimeter pulmonary nodule The patient did have evidence of a subcentimeter right apical pulmonary nodule noted on CT chest. The patient is an active smoker. I would recommend that the patient be monitored per the 2017 Fleischner Society recommendations for the management of incidentally detected pulmonary nodules. I would consider the patient to be a high risk individual, with options for proceeding including a repeat CT chest in 3 months versus direct tissue biopsy. Given the subcentimeter size of the patient's pulmonary nodule and the sensitivity for PET scans detecting significant lesions less than 1 cm in size, would recommend repeat CT chest in 3 months. In addition, would recommend that the patient follow-up in the pulmonary medicine clinic so that outpatient longitudinal screening can be established. We can attempt, at that time, to obtain any [place] health system records that may include imaging studies of the patient's chest. 2. Continuous tobacco dependency/suspected COPD The patient was counseled regarding the deleterious effects of ongoing tobacco utilization. Smoking cessation is advisable. The patient would benefit from undergone pulmonary function studies to establish or refute a diagnosis of obstructive lung disease. Again, this would need to be accomplished on an outpatient basis. This note was generated with [employer] dictation software. It may contain incorrect words, spelling, and punctuation that were not noted in checking the note before signing. Code Visit Inpatient E&M: 56550 Init Hosp L3
--- NOTE | 2018-09-02 13:27 | DCINST_ITS ---
- Discharge Diagnoses Current Active Problems: Current Active and Chronic Problems Chest pain (Acute) Hypertension (Chronic) CAD (coronary atherosclerotic disease) (Chronic) You will use the following diet at home:: Calorie/Carbohydrate Controlled (specify 1200, 1400, etc) Discharge Activity: Return to Normal Activity Instructions: ED Chest Pain NonCardiac Allergies/Adverse Reactions: Allergies atorvastatin Allergy (Verified 07/23/18 16:55) Angioedema diclofenac [From Voltaren] Allergy (Verified 07/23/18 16:55) Angioedema hydrochlorothiazide Allergy (Verified 07/23/18 16:55) Angioedema moxifloxacin Allergy (Verified 07/23/18 16:55) Angioedema ramipril Allergy (Verified 07/23/18 16:55) Angioedema rosuvastatin [From Crestor] Allergy (Verified 07/23/18 16:55) Angioedema simvastatin Allergy (Verified 07/23/18 16:55) Angioedema ticagrelor [From Brilinta] Allergy (Verified 07/23/18 16:55) Shortness of breath Medications to take at Discharge Albuterol Inhaler [Ventolin Hfa] 2 puff INHALATION Q6H PRN PRN 12/15/16 Aspirin E.C. [Ecotrin] 81 mg PO DAILY@0800 12/15/16 Furosemide [Lasix] 40 mg PO DAILY PRN PRN 12/15/16 Gabapentin [Neurontin] 600 mg PO QHS 12/15/16 Losartan Potassium [Cozaar] 100 mg PO DAILY 12/15/16 Metoprolol(XL)Succ [Toprol Xl (Beta Jennifer)] 100 mg PO QHS 12/15/16 Multivitamin,Therapeutic [Thera] 1 each PO DAILY 12/15/16 Nitroglycerin [Nitrostat] 0.4 mg SL Q5M PRN 12/15/16 Pravastatin [Pravachol] 40 mg PO QHS 12/15/16 Quetiapine Fumarate [Seroquel] 200 mg PO QHS 12/15/16 Vitamin B Complex/Folic Acid [Super B Maxi Complex Caplet] 0.4 mg PO DAILY 12/15/16 Amlodipine [Norvasc] 10 mg PO DAILY 12/31/16 Percocet 5-325 mg Tablet 2 tab PO Q4H PRN PRN 09/01/18 Primary Care Physician: [facility],[place] [Primary Care Provider] - Test Results: Test results from this visit will be discussed in further detail at your follow- up appointment, if applicable. Proposed Discharge Date: 09/02/18
--- NOTE | 2018-09-02 13:27 | PCM.DC.SUM ---
Discharge Date and Diagnosis - Problem List Patient Problems: Active and Suspected Problems Chest pain (Acute) Date of Admission: 09/01/18 Date of Discharge: 09/02/18 - Primary Discharge Diagnosis Active and Suspected Problems Chest pain (Acute) - Secondary Discharge Diagnosis Chronic Problems Hypertension (Chronic) CAD (coronary atherosclerotic disease) (Chronic) Hospital Course and Treatment Imaging Results: Clinical Impression(s) from Imaging Studies Chest X-Ray 09/01/18 08:39 IMPRESSION: Status post CABG with stable borderline enlargement of the cardiomediastinal silhouette size. No plain film evidence of overt failure. No pleural effusion. No pneumothorax. Soft tissue marginated lucency in the mid left lung base may represent a pulmonary cavitary lesion versus a portion of the proximal stomach herniated through a left hemidiaphragm defect. Stable appearance and position of the 2-lead left pectoral pacemaker. No plain film evident acute osseous abnormality. Electronically Signed: Alfonzo Conroy MD at 9:28 EDT , Service support , Chest CT 09/01/18 13:28 IMPRESSION: 1. 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 2. Indeterminate density lesion of the left kidney is stable in size. May represent proteinaceous cyst. Follow-up ultrasound is suggested. 3. CABG. Cardiac conduction device. 4. Bilateral adrenal gland hyperplasia similar since prior CT abdomen and pelvis. Electronically Signed: Alli Mederos MD at 18:45 EDT , Service support , Chest X-Ray 09/02/18 05:55 IMPRESSION: Status post CABG with stable borderline enlargement of the cardiomediastinal silhouette, stable. No central vascular congestion. No overt failure. No pleural effusion. No pneumothorax. Persistent left medial lung base finding as above. Please see discussion above. Stable appearance and position of the 2-lead left pectoral pacemaker. No plain film evident acute osseous abnormality. Electronically Signed: Alfonzo Conroy MD at 8:11 EDT , Service support , Chest CTA 09/02/18 09:40 IMPRESSION: 1. Negative for pulmonary embolus or thoracic aortic dissection. 2. Suspicious nodule in the right upper lobe measuring 9 mm. Consider PET/CT to further evaluate; as malignancy is not excluded. 3. Remaining chronic findings are stable Electronically Signed: Andrés Rodas DO at 12:23 EDT Tel , Service support , Operations: None Summary of Care Provided: The patient is a 68 year old M with past medical history is none for coronary artery disease with previous CABG hypertension dyslipidemia tobacco dependence who presented with chest pain 1. Chest pain patient was placed on a monitored bed did rule out DE with serial cardiac enzymes. Patient subsequently underwent a nuclear stress test which was negative for stress-induced ischemia 2. Hypertension-blood pressure controlled, home medications continued with dose adjustment as needed 3. Dyslipidemia-patient is on statin therapy, continued at home dose 4. Coronary artery disease with previous CABG and subsequent PCI 5. Conduction system disorder status post pacemaker placement 6. Tobacco dependence counseled on cessation, offered nicotine patch for tobacco cravings 7. Suspicious nodule in the right upper lobe measuring 9 mm. Consultation was placed to pulmonary medicine patient was seen by Dr. Coyne who recommended for the patient to follow-up in the pulmonary medicine clinic for repeat imaging studies in 3 months Patient Problems: Active and Suspected Problems Chest pain (Acute) Objective: GENERAL: cooperative HEENT: Atraumatic; moist oral mucosa EYES; Anicteric, Normal Conjunctiva NECK; supple, normal thyroid, no distended JVD. RESPIRATORY: Diminished to auscultation bilaterally, CARDIOVASCULAR: Regular S1 S2, no audible murmurs GI: soft, non-tender, normoactive bowel sounds, : No Renal angle tenderness; SKIN: No Rash PSYCH; Normal affect - Physical Exam Vital Signs Temp Pulse Resp BP Pulse Ox 98.0 F 71 17 118/51 L 97 09/02/18 12:36 09/02/18 12:51 09/02/18 12:36 09/02/18 12:36 09/02/18 12:36 Oxygen Flow Rate (L/min) 3 Oxygen Delivery Method Room Air Weight: 84.5 kg Body Mass Index (BMI) 28.9 Intake and Output for Last 24 Hours 08/31/18 09/01/18 09/02/18 23:59 23:59 23:59 Intake Total 720 / 720 255 / 255 Balance 720 / 720 255 / 255 Laboratory Tests Past 24 Hrs 09/01/18 09/02/18 09/02/18 14:35 05:00 05:00 WBC 8.6 RBC 4.24 L Hgb 12.7 L Hct 39.1 L MCV 92.2 MCH 30.0 MCHC 32.5 RDW 15.1 H RDW Differential 49.5 H Plt Count 330 MPV 9.8 PT INR APTT D-Dimer Quant (PE/DVT) Sodium 142 Potassium 4.1 Chloride 108 H Carbon Dioxide 29.0 Anion Gap 5 BUN 16 Creatinine 1.04 Estim Creat Clear Calc 66.68 Est GFR (MDRD) Af Amer 92 Est GFR (MDRD) Non-Af 76 BUN/Creatinine Ratio 15.4 Glucose 102 Calcium 9.1 Troponin I 0.025 09/02/18 09/02/18 05:00 05:00 WBC RBC Hgb Hct MCV MCH MCHC RDW RDW Differential Plt Count MPV PT 13.9 INR 1.1 APTT 35.3 D-Dimer Quant (PE/DVT) 0.69 H* Sodium Potassium Chloride Carbon Dioxide Anion Gap BUN Creatinine Estim Creat Clear Calc Est GFR (MDRD) Af Amer Est GFR (MDRD) Non-Af BUN/Creatinine Ratio Glucose Calcium Troponin I Discharge Diet: Low fat/ Low Cholesterol Discharge Activity: Return to Normal Activity Home Medications: Medications to take at Discharge Albuterol Inhaler [Ventolin Hfa] 2 puff INHALATION Q6H PRN PRN 12/15/16 Aspirin E.C. [Ecotrin] 81 mg PO DAILY@0800 12/15/16 Furosemide [Lasix] 40 mg PO DAILY PRN PRN 12/15/16 Gabapentin [Neurontin] 600 mg PO QHS 12/15/16 Losartan Potassium [Cozaar] 100 mg PO DAILY 12/15/16 Metoprolol(XL)Succ [Toprol Xl (Beta Jennifer)] 100 mg PO QHS 12/15/16 Multivitamin,Therapeutic [Thera] 1 each PO DAILY 12/15/16 Nitroglycerin [Nitrostat] 0.4 mg SL Q5M PRN 12/15/16 Pravastatin [Pravachol] 40 mg PO QHS 12/15/16 Quetiapine Fumarate [Seroquel] 200 mg PO QHS 12/15/16 Vitamin B Complex/Folic Acid [Super B Maxi Complex Caplet] 0.4 mg PO DAILY 12/15/16 Amlodipine [Norvasc] 10 mg PO DAILY 12/31/16 Percocet 5-325 mg Tablet 2 tab PO Q4H PRN PRN 09/01/18 Primary Care Physician: [facility] [Primary Care Provider] - Patient Instructions: ED Chest Pain NonCardiac Medical Necessity - Tobacco Use Smoking Status: Current every day smoker Tobacco Use: Cigarettes Meaningful Use Info Meaningful Use Diagnoses (Choose all that apply): None applicable Code Visit OBSV E&M: 22024 Observation care discharge
== END 2018-09-02 13:26 | disposition home or self-care (01) ==
LOC: ED 10:09 → PCU 10:34
PROVIDERS: Admitting Provider Internal Medicine; Emergency Provider Emergency Medicine; Visit Provider Internal Medicine
DX: R07.89 Other chest pain (principal); I25.10 Atherosclerotic heart disease of native coronary artery without angina pectoris; E78.5 Hyperlipidemia, unspecified; R42 Dizziness and giddiness; R11.0 Nausea; F17.210 Nicotine dependence, cigarettes, uncomplicated; I25.2 Old myocardial infarction; I11.0 Hypertensive heart disease with heart failure; I50.9 Heart failure, unspecified; R91.1 Solitary pulmonary nodule; Z79.899 Other long term (current) drug therapy; Z79.82 Long term (current) use of aspirin; Z95.1 Presence of aortocoronary bypass graft; Z95.0 Presence of cardiac pacemaker; Z93.3 Colostomy status
CPT/HCPCS: 36415; 71045; 71046; 71250; 71275; 78452; 80048; 84484; 85025; 85027; 85379; 85610; 85730; 93005; 93017; 93306; 94660; 96372; 96374; 96375; 96376; 99218; 99285; 99406; A9500; Q9957; Q9967; A4216; C8929; G0378; J2405; J2785

== ENCOUNTER 2018-09-14 21:07 | Observation (INO) | payer MEDICARE, OTHER, SELFPAY ==
[2018-09-01 11:04] VITALS: BMI 28.9
[2018-09-14 21:07] VITALS: BP 185/82; PULSE 83; RESP 16; TEMP 37.1; O2SAT 98; BMI 29.2
--- NOTE | 2018-09-14 21:16 | EKG12_ITS ---
Test Reason : CP Blood Pressure : / mmHG Vent. Rate : 085 BPM Atrial Rate : 085 BPM P-R Int : 196 ms QRS Dur : 114 ms QT Int : 386 ms P-R-T Axes : 065 049 027 degrees QTc Int : 459 ms Normal sinus rhythm Possible Left atrial enlargement Nonspecific T wave abnormality Abnormal ECG Confirmed by MEERA METCALF, MAGGI ([id number]), web editor DAPHNEY DAVISON ([id number] on 09/16/2018 3:47:25 PM Referred By: Abhay Albert Confirmed By:MAGGI ESTES MD
--- NOTE | 2018-09-14 21:17 | ED.DCSUM_ITS ---
History of Present Illness Chief Complaint: Chest Pain Informant: Patient Onset: Today Narrative: Reports sudden onset of midsternal chest achiness and sharpness 2 hours ago prior to arrival while getting ready for bed. Pain radiates to his right shoulder. Reports nausea dyspnea. 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 Reports that stents prior to this. 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 Reports symptoms feeling similar to his DE. Reports was admitted here 2 months ago with possible stress test. History of hypertension hypercholesterolemia and tobacco. Family history of MIs at a young age. Reports on his father's side. No PE risk factors. Reports a cough. Nonproductive. States he took 3 nitroglycerin at home states first 1 help somewhat, however other 2 did not. Current pain is 8 out of 10. Prior similar symptoms: Yes Past Medical History - Allergies and Home Meds Allergies/Adverse Reactions: Allergies atorvastatin Allergy (Verified 07/23/18 16:55) Angioedema diclofenac [From Voltaren] Allergy (Verified 07/23/18 16:55) Angioedema hydrochlorothiazide Allergy (Verified 07/23/18 16:55) Angioedema moxifloxacin Allergy (Verified 07/23/18 16:55) Angioedema ramipril Allergy (Verified 07/23/18 16:55) Angioedema rosuvastatin [From Crestor] Allergy (Verified 07/23/18 16:55) Angioedema simvastatin Allergy (Verified 07/23/18 16:55) Angioedema ticagrelor [From Brilinta] Allergy (Verified 07/23/18 16:55) Shortness of breath Primary Care Physician: [facility] [Primary Care Provider] - Surgical History: - - colectomy s/p colostomy, pacemaker insertion Smoking Status: Current every day smoker - Family History Paternal Family History: Reports: High Cholesterol, Heart Disease, Hypertension Maternal Family History: Reports: No pertinent history Review of Systems General: Denies: Chills, Fever, Sweats Eyes: Denies: Visual changes - bilaterally, Diplopia ENT: Denies: Rhinorrhea, Sore throat Cardiovascular: Reports: Chest pain. Denies: Palpitations Respiratory: Reports: Cough. Denies: Dyspnea, Dyspnea on exertion Gastrointestinal: Reports: Nausea. Denies: Abdominal pain, Vomiting, Diarrhea, Melena, Hematochezia Genitourinary: Denies: Dysuria, Hematuria, Frequency Musculoskeletal: Denies: Back pain, Extremity Pain Skin: Denies: Rash, Wounds Neurological: Denies: Headache, Weakness, Numbness Physical Exam Vital Signs/Narrative: Vital Signs Temp Pulse Resp BP Pulse Ox 09/14/18 21:07 98.8 F 83 16 185/82 H 98 Inital Vital Signs reviewed: Yes General: Well nourished, Well developed, No Acute Distress Head: Normocephalic, Atraumatic Eyes: Perrl, EOMI ENT: Moist mucous membranes, No rhinorrhea Neck: Supple, Nontender Cardiovascular: Regular rate, Regular rhythm, No murmurs Respiratory: No distress, CTA bilaterally, Chest nontender Abdomen: Soft, Nontender, Nondistended, Normal bowel sounds Back: Nontender, Normal Inspection Extremities: Nontender, No edema Skin: Normal color, No rash Neurological: Alert, Oriented x3, Cranial nerves II-XII grossly intact, Normal Strength, Normal Sensation Psychological: Normal affect, Normal Mood Diagnostic/Tx/Re-eval Chest X-Ray - ED: 1 View, Read by ED Physician, Read by Radiologist, No Acute Disease Abnormal Lab Results 09/14/18 09/14/18 09/14/18 21:40 21:40 22:05 WBC 8.1 RBC 4.36 L Hgb 13.4 Hct 39.2 L MCV 89.9 MCH 30.7 MCHC 34.2 RDW 14.7 H RDW Differential 47.9 H Plt Count 290 MPV 9.4 Immature Gran % (Auto) 0.100 Neut % (Auto) 77.2 H Lymph % (Auto) 13.4 L [place] % (Auto) 8.7 Eos % (Auto) 0.4 Baso % (Auto) 0.2 Absolute Neuts (auto) 6.2 Absolute Lymphs (auto) 1.08 Total Counted Not Reportable PT 14.4 INR 1.1 APTT 33.1 Sodium 139 Potassium 4.3 Chloride 103 Carbon Dioxide 27.0 Anion Gap 9 BUN 13 Creatinine 0.98 Estim Creat Clear Calc 70.77 Est GFR (MDRD) Af Amer 98 Est GFR (MDRD) Non-Af 81 BUN/Creatinine Ratio 13.2 Glucose 109 H Calcium 9.6 Troponin I < 0.015 Chest x-ray: No acute process - EKG Initial EKG Interpretation: Sinus Rhythm, - - Sinus rate of 85, no ST changes. T wave inversions in inferior leads. EKG on September 02 had flattening T waves and inferior leads. Prior: Changed - Medical Decision Making Patient presents with chest pain, EKG new T wave inversions inferior leads. No ST elevations. Is given aspirin, nitro series, morphine for symptom control. Troponin negative. Chest x-ray negative. Heart score is 6. MARTIN score 3. R eview of records, patient was here 12 days admitted with a negative nuclear stress CTA chest also obtained was negative. However with patient having EKG changes I do feel he would benefit from inpatient rule out. Cardiology was not consulted on last visit. He had a pulmonary consult for an incidental pulmonary nodule being follow-up in 3 months. Spoke with hospitalist for admission to PCU. ED Disposition - Plan for ED Patient: Disposition: Acute Care Hospital [facility] Diagnosis: Chest pain [facility] [Primary Care Provider] -
--- NOTE | 2018-09-14 21:20 | RAD_ITS ---
STUDY: X-RAY CHEST REASON FOR EXAM: Male, 68 years old. Chest pain TECHNIQUE: Frontal view of the chest COMPARISON: 09/02/2018 FINDINGS: The lungs are clear. There are no pleural effusions. There is no pneumothorax. The heart is stable in size. Again noted are sternotomy wires and a pacemaker. The visualized osseous structures are within normal limits. RAD/Chest 1 View (Portable) IMPRESSION: No acute thoracic pathology. Electronically Signed: Israel Cohn, at 21:31 EDT Tel , Service support ,
[2018-09-14 21:26] VITALS: O2SAT 94
[2018-09-14 22:07] VITALS: BP 166/70; PULSE 76; RESP 18; O2SAT 98
[2018-09-14] MEDS: Aspirin 81 MG TAB.CHEW PO (22:13)
[2018-09-14] MEDS: Morphine 4 MG/ML Syringe SC (22:13)
[2018-09-14] MEDS: Nitroglycerin SL (ED/IMG/CATH) 0.4 MG TABLET SUBLINGUAL (22:13)
[2018-09-14 22:18] LABS: Absolute Lymphocyte Count 1.08 X10^3/ul (0.83-4.51); Absolute Neutrophil Count 6.2 X10^3/uL (2.0-7.7); Basophil# 0.02 X10^3/uL; Basophil% 0.2 % (0-1); Eosinophil# 0.03 X10^3/uL; Eosinophils% 0.4 % (0-5); Hematocrit 39.2 % (40-54); Hemoglobin 13.4 g/dl (13.0-16.5); Lymphocyte # 1.08 X10^3/ul (4.0); Lymphocyte % 13.4 % (19-41); Mean Corp Hgb Conc 34.2 g/gl (32-36); Mean Corpuscular Hgb 30.7 pg (27.0-32.0); Mean Corpuscular Volume 89.9 fL (80-94); Mean Platelet Vol. 9.4 fl (6.2-12.0); Monocyte% 8.7 % (0-10); Neutrophil # 6.21 X10^3/uL (2.7-7.7); Neutrophil % 77.2 % (47-70); Platelet Count 290 K/mm3 (150-450); RBC Distribution Width CV 14.7 % (11.6-14.6); RBC Distribution Width SD 47.9 fl (35.1-43.9); Red Blood Count 4.36 M/mm3 (4.6-6.2); White Blood Count 8.1 K/mm3 (4.4-11.0)
[2018-09-14 22:19] LABS: POSITIVE COUNT NO; POSITIVE DIFFERENTIAL NO; POSITIVE MORPHOLOGY NO
[2018-09-14 22:38] LABS: International Normalized Ratio 1.1; Prothrombin Time (Protime)PT. 14.4 SECONDS (11.7-14.9)
[2018-09-14 22:39] LABS: Partial Thromboplast Time 33.1 Seconds (24.1-36.2)
[2018-09-14 22:40] LABS: Anion Gap 9 (5-15); BUN 13 mg/dL (7-18); BUN/Creat Ratio 13.2 RATIO (10-20); Calcium,Total 9.6 mg/dL (8.5-10.1); Chloride 103 mmol/L (98-107); Creatinine, Serum 0.98 mg/dL (0.70-1.30); EST Glomerular Filtration Rate 81 mL/min (>60); Est Glom Filt Rate - Afr Amer 98 mL/min (>60); Estimated Creatinine Clearance 70.77 ml/min; Glucose 109 mg/dL (74-106); Potassium 4.3 mmol/L (3.5-5.1); Sodium Level 139 mmol/L (136-145)
[2018-09-14 23:00] VITALS: BP 146/78; PULSE 74; RESP 16; O2SAT 96
[2018-09-14] MEDS: Ondansetron ODT 4 MG Tablet 8 MG PO (23:01)
--- NOTE | 2018-09-14 23:30 | HP.PCM_ITS ---
Problem List (1) Chest pain Status: Acute Qualifiers: Chest pain type: unspecified Qualified Code(s): R07.9 - Chest pain, unspecified (2) Hypertension Status: Chronic Qualifiers: Hypertension type: essential hypertension Qualified Code(s): I10 - Essential (primary) hypertension (3) CAD (coronary atherosclerotic disease) Status: Chronic Qualifiers: Coronary Disease-Associated Artery/Lesion type: unspecified vessel or lesion type [place] vs. transplanted heart: [place] heart Associated angina: angina presence unspecified Qualified Code(s): I25.10 - Atherosclerotic heart disease of [place] coronary artery without angina pectoris History of Present Illness Date of Admission: 09/14/18 Chief Complaint: chest pain The patient is a 68 year old M with a significant history of tobacco abuse; permanent pacemaker; CAD status post stent in 1999; triple bypass in 2005; and stents about 4 years ago; hypertension; hyperlipidemia; colectomy with colostomy; and who was at the hospital 2 weeks ago with chest pain but with unremarkable stress test presenting again with a continuous substernal excruciating chest pain that started few hours before presentation. He describes chest pain as aching and stabbing. His chest pain radiated to his right and to his middle back. His chest pain is aggravated with exertion and with walking. At rest his chest pain is improved. He took 1 tablet of sublingual nitroglycerin that helped with his chest pain. Thereafter he took additional 2 nitroglycerin which did not provide any relief. At the emergency department he was given nitroglycerin and it also did not help with his pain. He takes daily aspirin and he took his aspirin on the day of presentation. At the emergency department he was given an additional 4 baby aspirin. He reported that he felt relief after receiving morphine which brought his pain to 5 out of 10. He denies any nausea; vomiting or diaphoresis with his chest pain. At e mergency department his EKG showed T wave inversions in inferior leads. However his EKG about 2 weeks ago showed flattened T waves in inferior leads. He reported that his father had 11 brothers and about half of them from heart attack in their late 50s or early 60s. Past Medical History Past Medical History (Chronic Problems): Chronic Problems Hypertension (Chronic) CAD (coronary atherosclerotic disease) (Chronic) Allergies atorvastatin Allergy (Verified 07/23/18 16:55) Angioedema diclofenac [From Voltaren] Allergy (Verified 07/23/18 16:55) Angioedema hydrochlorothiazide Allergy (Verified 07/23/18 16:55) Angioedema moxifloxacin Allergy (Verified 07/23/18 16:55) Angioedema ramipril Allergy (Verified 07/23/18 16:55) Angioedema rosuvastatin [From Crestor] Allergy (Verified 07/23/18 16:55) Angioedema simvastatin Allergy (Verified 07/23/18 16:55) Angioedema ticagrelor [From Brilinta] Allergy (Verified 07/23/18 16:55) Shortness of breath Home Medications: Ambulatory Orders Medication Instructions Recorded Albuterol Inhaler [Ventolin Hfa] 2 puff INHALATION Q6H PRN PRN 12/15/16 Aspirin E.C. [Ecotrin] 81 mg PO DAILY@0800 12/15/16 Furosemide [Lasix] 40 mg PO DAILY PRN PRN 12/15/16 Gabapentin [Neurontin] 600 mg PO QHS 12/15/16 Losartan Potassium [Cozaar] 100 mg PO DAILY 12/15/16 Metoprolol(XL)Succ [Toprol Xl 100 mg PO QHS 12/15/16 (Beta Jennifer)] Multivitamin,Therapeutic [Thera] 1 each PO DAILY 12/15/16 Nitroglycerin [Nitrostat] 0.4 mg SL Q5M PRN 12/15/16 Pravastatin [Pravachol] 40 mg PO QHS 12/15/16 Quetiapine Fumarate [Seroquel] 200 mg PO QHS 12/15/16 Vitamin B Complex/Folic Acid 0.4 mg PO DAILY 12/15/16 [Super B Maxi Complex Caplet] Amlodipine [Norvasc] 10 mg PO DAILY 12/31/16 Percocet 5-325 mg Tablet 2 tab PO Q4H PRN PRN 09/01/18 Surgical History: appendectomy, - - colectomy s/p colostomy, pacemaker insertion; patient had ruptured appendix for which he had appendectomy and laparotomy Lives: With Family Smoking Status: Current every day smoker Tobacco Use: Cigarettes - *Family History Paternal History Items: High Cholesterol, Heart Disease, Hypertension, - - He reported that his father had 11 brothers and about half of them from heart attack in the late 50s or early 60s. Maternal History Items: Dementia - Alzheimer's disease Review of Systems Constitutional: Denies: Chills, Fever, Weight Change HEENT: Denies: Head Aches, Sinus Congestion, Sinus Drainage Cardiovascular: Reports: Chest Pain. Denies: Palpitations Respiratory: Denies: Cough, Shortness of breath at rest, Sputum production Gastrointestinal: Denies: Abdominal Pain, Nausea, Vomiting Genitourinary: Denies: Dysuria Musculoskeletal: Reports: Arm Pain - Right arm, Back Pain. Denies: Joint Pain, Joint Tenderness Skin: Denies: Rash, Wounds Neurological: Denies: Numbness, Tingling, Focal weakness Psychiatric: Denies: Anxiety, Depression, Homicidal Ideations, Suicidal Ideations Hematologic/ Lymphatic: Denies: Easy Bruising, Easy Bleeding VTE Information - Inpt Only VTE Present on Admission: No VTE Mechan Device Prophylaxis: None VTE Pharm Prophylaxis ordered?: Yes Patient Problems: Active and Suspected Problems Chest pain (Acute) - Physical Exam General: Alert, Oriented x3, Cooperative HEENT: Atraumatic, PERRLA, EOMI, Normocephalic Neck: Supple, No JVD, Negative Carotid Bruits Lungs: Clear to auscultation, Normal air movement Cardiovascular: Regular rate, No murmurs Abdomen: Bowel Sounds Present, Soft, Non Tender, - - Colostomy in place. Extremities: No edema, Capillary Refill Less than 3 Seconds Skin: No rashes, No breakdown Musculoskeletal: No Tenderness to Palpation of Joints or Extremities Neurological: Cranial nerves II-XII grossly intact Psych/Mental Status: Normal Affect, Appropriate Vital Signs Temp Pulse Resp BP Pulse Ox 98.8 F 74 16 146/78 H 96 09/14/18 21:07 09/14/18 23:00 09/14/18 23:00 09/14/18 23:00 09/14/18 23:00 Oxygen Flow Rate (L/min) 2 Oxygen Delivery Method Nasal Cannula Weight: 87.1 kg Body Mass Index (BMI) 29.2 Laboratory Tests Past 24 Hrs 09/14/18 09/14/18 09/14/18 21:40 21:40 22:05 WBC 8.1 RBC 4.36 L Hgb 13.4 Hct 39.2 L MCV 89.9 MCH 30.7 MCHC 34.2 RDW 14.7 H RDW Differential 47.9 H Plt Count 290 MPV 9.4 Immature Gran % (Auto) 0.100 Neut % (Auto) 77.2 H Lymph % (Auto) 13.4 L [place] % (Auto) 8.7 Eos % (Auto) 0.4 Baso % (Auto) 0.2 Absolute Neuts (auto) 6.2 Absolute Lymphs (auto) 1.08 Total Counted Not Reportable PT 14.4 INR 1.1 APTT 33.1 Sodium 139 Potassium 4.3 Chloride 103 Carbon Dioxide 27.0 Anion Gap 9 BUN 13 Creatinine 0.98 Estim Creat Clear Calc 70.77 Est GFR (MDRD) Af Amer 98 Est GFR (MDRD) Non-Af 81 BUN/Creatinine Ratio 13.2 Glucose 109 H Calcium 9.6 Troponin I < 0.015 Assessment/Plan All Active Problems Chest pain (Acute) The patient is a 68 year old M with a significant history of tobacco abuse; permanent pacemaker; CAD status post stent in 1999; triple bypass in 2005; and stent about 4 years ago; hypertension; hyperlipidemia; colectomy with colostomy; and who was at the hospital 2 weeks ago with chest pain but with unremarkable stress test presenting again with a continuous substernal excruciating chest and with EKG changes of T wave inversion in inferior leads. Chest pain Admit to a monitored bed on PCU Heart score of six-point, moderate score(history is moderately suspicious; EKG with nonspecific repolarization disturbance; age more equal to 65; more than 3 risks or history of atherosclerotic disease; normal initial troponin) MARTIN score for unstable angina/NSTEMI = five-points; 26% all cause mortality risk (age more equal to 65; more than 3 CAD risk factors; known CAD (stenosis more equal to 50% ); aspirin use in the past 7 days; severe angina (more than 2 episodes in 24 hours close ( CXR independently reviewed confirms no acute cardiopulmonary process. EKG independently reviewed confirms T wave inversion in inferior leads Old records reviewed showed T wave flattening in previous EKG. Continue ASA 81 mg p.o. daily Continue sL NTG 0.4 mg prn as needed for chest pain Morphine as needed for pain We will check lipid panel and A1c. Of note the patient is allergic to atorvastatin. Home pravastatin continued. Metoprolol and losartan continued Therapeutic Lovenox ordered. Serial cardiac enzymes Stat EKG as needed for chest pain Consult cardiology Hypertension On presentation his blood pressure was not within goal Home metoprolol and losartan continued PRN labetalol ordered. Trend blood pressure and adjust blood pressure medication. Tobacco abuse Counselled Nicotine patch ordered JOSH Bipap ordered Chronic pain PRN oxycodone continued Insomnia Seroquel nightly continued. Colectomy with colostomy Wound/ostomy nurse consult. Miscellaneous: Home PRN Lasix continued. DVT prophylaxis Not indicated since patient has been started on therapeutic Lovenox for his chest pain. Code Visit OBSV E&M: 99736 Initial observation care L3
[2018-09-14] MEDS: Morphine 4 MG/ML Syringe IV (23:39)
[2018-09-15] VITALS (11 sets, daily range): BP systolic 133–174; BP diastolic 54–78; PULSE 64–87; RESP 16–24; TEMP 36.4–36.9; O2SAT 96–99; BMI 28.4
--- NOTE | 2018-09-15 00:42 | EKG12_ITS ---
Test Reason : CP ADMISSION Blood Pressure : / mmHG Vent. Rate : 082 BPM Atrial Rate : 082 BPM P-R Int : 216 ms QRS Dur : 110 ms QT Int : 396 ms P-R-T Axes : 045 047 074 degrees QTc Int : 462 ms Sinus rhythm with 1st degree A-V block Possible Inferior infarct , age undetermined Abnormal ECG When compared with ECG of 14-SEP-2018 21:08, MANUAL COMPARISON REQUIRED, DATA IS UNCONFIRMED Confirmed by MEERA METCALF, MAGGI ([id number]), digital editor LYNN RM ([id number]) on 09/17/2018 11:20:41 AM Referred By: Abhay Albert Confirmed By:MAGGI ESTES MD
[2018-09-15] MEDS: oxyCODONE 5 MG Tablet 10 MG PO ×2 (01:21→05:46)
[2018-09-15] MEDS: Enoxaparin 100 MG/ML Syringe 90 MG SC ×2 (01:23→09:25)
[2018-09-15] MEDS: Metoprolol(XL)Succ 100 MG Tablet PO (01:26)
[2018-09-15] MEDS: Gabapentin 600 MG Tablet PO (01:26)
[2018-09-15] MEDS: Pravastatin 40 MG Tablet PO (01:27)
[2018-09-15] MEDS: QUEtiapine 100 MG Tablet 200 MG PO (01:30)
[2018-09-15] MEDS: Acetaminophen 325 MG Tablet 650 MG PO (01:30)
[2018-09-15 05:03] LABS: Cholesterol 168 mg/dL (200); High Density Lipoprotein 29 mg/dL; Triglycerides 122 mg/dL; Very Low Density Lipoprotein 24 mg/dL (5-40)
--- NOTE | 2018-09-15 08:23 | CPS ---
cpap removed per pt request to eat breakfast
[2018-09-15] MEDS: Aspirin E.C. 81 MG Tablet PO (09:24)
[2018-09-15] MEDS: Losartan Potassium 100 MG Tablet PO (09:25)
[2018-09-15] MEDS: amLODIPine 10 MG Tablet PO (09:26)
[2018-09-15 09:48] LABS: Hemoglobin A1c 5.5 % (4.2-6.3)
--- NOTE | 2018-09-15 10:26 | NURSING ---
@ APPROX. 0930 PT SLEEPING SOUNDLY IN ROOM, AWAKENED BY NAME AND TOUCH-QUICKLY RETURNS TO SLEEP IF NOT STIMULATED THERAPIES IN ROOM FOR ASSESSMENT AND PT FALLING ASLEEP MID-SENTENCE, PT AMB IN KEYS W/ 2 ASSISTS AND GAITBELT AND THERAPY FELT HE WAS TOO UNSTEADY TO PLACE IN CHAIR -PT REQUESTING PAIN MEDS AND THIS NURSE EXPLAINED TO PT THAT AT THIS TIME IT WOULD BE UNSAFE TO GIVE NARCOTICS D/T THE LEVEL OF HIS DROWSINESS HE SAID HE IS NO LONGER DROWSY, PT ASSISTED TO CHAIR-CALLL LIGHT IN REACH, PT INSTRUCTED TO CALL PRIOR TO AMBULATION SO THAT STAFF CAN ASSIST HIM AND DECREASE HIS RISKS FOR FALL DISCUSSED WITH DR RILEY THE PTS LEVEL OF DROWSINESS WHICH PT STATES IS HANGOVER FROM THE SEROQUEL AT BEDTIME DR RILEY TO SEE PT AND DISCUSS MEDICATIONS - DR RILEY SAW PT PT FOUND TO BE OUT OF ROOM AMBULATING BY HIMSELF, DESPITE BEING TOLD TO CALL FOR SBA PT LOOKING FOR HIS LUNCH EVEN THOUGH IT IS 1030 AM
--- NOTE | 2018-09-15 11:17 | DCINST_ITS ---
- Discharge Diagnoses Current Active Problems: Current Active and Chronic Problems Chest pain (Acute) You will use the following diet at home:: Calorie/Carbohydrate Controlled (specify 1200, 1400, etc) Your food should be the consistency of: Regular Your liquids should be the consistency of: Regular/Thin Instructions: ED Chest Pain NonCardiac Allergies/Adverse Reactions: Allergies atorvastatin Allergy (Verified 07/23/18 16:55) Angioedema diclofenac [From Voltaren] Allergy (Verified 07/23/18 16:55) Angioedema hydrochlorothiazide Allergy (Verified 07/23/18 16:55) Angioedema moxifloxacin Allergy (Verified 07/23/18 16:55) Angioedema ramipril Allergy (Verified 07/23/18 16:55) Angioedema rosuvastatin [From Crestor] Allergy (Verified 07/23/18 16:55) Angioedema simvastatin Allergy (Verified 07/23/18 16:55) Angioedema ticagrelor [From Brilinta] Allergy (Verified 07/23/18 16:55) Shortness of breath Medications to take at Discharge Albuterol Inhaler [Ventolin Hfa] 2 puff INHALATION Q6H PRN PRN 12/15/16 Aspirin E.C. [Ecotrin] 81 mg PO DAILY@0800 12/15/16 Furosemide [Lasix] 40 mg PO DAILY PRN PRN 12/15/16 Gabapentin [Neurontin] 600 mg PO QHS 12/15/16 Losartan Potassium [Cozaar] 100 mg PO DAILY 12/15/16 Metoprolol(XL)Succ [Toprol Xl (Beta Jennifer)] 100 mg PO QHS 12/15/16 Multivitamin,Therapeutic [Thera] 1 each PO DAILY 12/15/16 Nitroglycerin [Nitrostat] 0.4 mg SL Q5M PRN 12/15/16 Pravastatin [Pravachol] 40 mg PO QHS 12/15/16 Quetiapine Fumarate [Seroquel] 200 mg PO QHS 12/15/16 Vitamin B Complex/Folic Acid [Super B Maxi Complex Caplet] 0.4 mg PO DAILY 12/15/16 Amlodipine [Norvasc] 10 mg PO DAILY 12/31/16 Acetaminophen [Tylenol Tablet] 650 mg PO Q6H PRN PRN tablet 09/15/18 Omeprazole 20 mg PO DAILY #30 tab.rap. 09/15/18 The following prescriptions were given: Omeprazole 20 mg PO DAILY #30 tab. Primary Care Physician: [facility],[place] [Primary Care Provider] - Within 1 Week Test Results: Test results from this visit will be discussed in further detail at your follow- up appointment, if applicable. Proposed Discharge Date: 09/15/18
--- NOTE | 2018-09-15 11:17 | PCM.DC.SUM ---
Discharge Date and Diagnosis - Problem List Patient Problems: Active and Suspected Problems Chest pain (Acute) Date of Admission: 09/14/18 Date of Discharge: 09/15/18 - Primary Discharge Diagnosis Active and Suspected Problems Chest pain (Acute) - Secondary Discharge Diagnosis Chronic Problems Hypertension (Chronic) CAD (coronary atherosclerotic disease) (Chronic) Hospital Course and Treatment Imaging Results: Clinical Impression(s) from Imaging Studies Chest X-Ray 09/14/18 21:20 IMPRESSION: No acute thoracic pathology. 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 Patient has known coronary disease with history of CABG. Patient was admitted earlier this month and underwent a nuclear stress test that was negative. Troponins here were negative x3.. Patient had a left heart catheterization performed at [facility] on October 19, 2017 that showed normal left main, normal left anterior descending, normal circumflex, normal right coronary artery, patent stent in the left inferior mammary artery, and a patent saphenous vein graft to the right coronary artery. Patient was noted to be very groggy today when therapy evaluated him. Shortly after the patient woke up from his somnolence, patient was immediately asking for pain medications. I reviewed the patient's OARRS and revealed concerning pattern for drug-seeking behavior., On August 24, patient received [address] Avelar, August 02, received [address] Lua, July 24, received [address] Santana, July 11, received [address] Torres. Further review shows just different providers over different times, but also appears to be different hospitals and different facilities. I told the patient that I would not be giving him any additional narcotics while he was here, did advised him to utilize Tylenol. He has no reproducible anterior chest wall tenderness so possibility of reflux or esophageal spasm could be the cause of his pain but patient seems to be eating well despite that. Did recommend Prilosec for him to try and told him that that [id number]. I did tell the patient that given the frequent varying providers, that he would not receive any additional narcotics but also explained that the narcotics would not be indicated either. [] Patient Problems: Active and Suspected Problems Chest pain (Acute) - Physical Exam General: Alert, No apparent distress HEENT: Atraumatic, Normocephalic Oral: Moist Mucosa, No Gingival or Mucosal Lesions/ Ulcerations Musculoskeletal: - - No reproducible anterior chest wall tenderness Psych/Mental Status: Appropriate, Flat Affect Vital Signs Temp Pulse Resp BP Pulse Ox 36.9 C 65 18 133/54 H 97 09/15/18 10:34 09/15/18 10:34 09/15/18 10:34 09/15/18 10:34 09/15/18 10:34 Oxygen Flow Rate (L/min) 2 Oxygen Delivery Method Room Air Weight: 84.8 kg Body Mass Index (BMI) 28.4 Intake and Output for Last 24 Hours 09/13/18 09/14/18 09/15/18 23:59 23:59 23:59 Intake Total 300 / 300 Balance 300 / 300 Laboratory Tests Past 24 Hrs 09/14/18 09/14/18 09/14/18 21:40 21:40 22:05 WBC 8.1 RBC 4.36 L Hgb 13.4 Hct 39.2 L MCV 89.9 MCH 30.7 MCHC 34.2 RDW 14.7 H RDW Differential 47.9 H Plt Count 290 MPV 9.4 Immature Gran % (Auto) 0.100 Neut % (Auto) 77.2 H Lymph % (Auto) 13.4 L Mcleod % (Auto) 8.7 Eos % (Auto) 0.4 Baso % (Auto) 0.2 Absolute Neuts (auto) 6.2 Absolute Lymphs (auto) 1.08 Total Counted Not Reportable PT 14.4 INR 1.1 APTT 33.1 Sodium 139 Potassium 4.3 Chloride 103 Carbon Dioxide 27.0 Anion Gap 9 BUN 13 Creatinine 0.98 Estim Creat Clear Calc 70.77 Est GFR (MDRD) Af Amer 98 Est GFR (MDRD) Non-Af 81 BUN/Creatinine Ratio 13.2 Glucose 109 H Hemoglobin A1c Calcium 9.6 Troponin I < 0.015 Triglycerides Cholesterol LDL Cholesterol VLDL Cholesterol HDL Cholesterol 09/15/18 09/15/18 09/15/18 00:50 03:40 03:40 WBC RBC Hgb Hct MCV MCH MCHC RDW RDW Differential Plt Count MPV Immature Gran % (Auto) Neut % (Auto) Lymph % (Auto) Mcleod % (Auto) Eos % (Auto) Baso % (Auto) Absolute Neuts (auto) Absolute Lymphs (auto) Total Counted PT INR APTT Sodium Potassium Chloride Carbon Dioxide Anion Gap BUN Creatinine Estim Creat Clear Calc Est GFR (MDRD) Af Amer Est GFR (MDRD) Non-Af BUN/Creatinine Ratio Glucose Hemoglobin A1c Calcium Troponin I 0.021 0.021 Triglycerides 122 Cholesterol 168 LDL Cholesterol 115 VLDL Cholesterol 24 HDL Cholesterol 29 L 09/15/18 03:40 WBC RBC Hgb Hct MCV MCH MCHC RDW RDW Differential Plt Count MPV Immature Gran % (Auto) Neut % (Auto) Lymph % (Auto) Mcleod % (Auto) Eos % (Auto) Baso % (Auto) Absolute Neuts (auto) Absolute Lymphs (auto) Total Counted PT INR APTT Sodium Potassium Chloride Carbon Dioxide Anion Gap BUN Creatinine Estim Creat Clear Calc Est GFR (MDRD) Af Amer Est GFR (MDRD) Non-Af BUN/Creatinine Ratio Glucose Hemoglobin A1c 5.5 Calcium Troponin I Triglycerides Cholesterol LDL Cholesterol VLDL Cholesterol HDL Cholesterol Discharge Diet: Low fat/ Low Cholesterol Discharge Activity: Return to Normal Activity Home Medications: Medications to take at Discharge Albuterol Inhaler [Ventolin Hfa] 2 puff INHALATION Q6H PRN PRN 12/15/16 Aspirin E.C. [Ecotrin] 81 mg PO DAILY@0800 12/15/16 Furosemide [Lasix] 40 mg PO DAILY PRN PRN 12/15/16 Gabapentin [Neurontin] 600 mg PO QHS 12/15/16 Losartan Potassium [Cozaar] 100 mg PO DAILY 12/15/16 Metoprolol(XL)Succ [Toprol Xl (Beta Jennifer)] 100 mg PO QHS 12/15/16 Multivitamin,Therapeutic [Thera] 1 each PO DAILY 12/15/16 Nitroglycerin [Nitrostat] 0.4 mg SL Q5M PRN 12/15/16 Pravastatin [Pravachol] 40 mg PO QHS 12/15/16 Quetiapine Fumarate [Seroquel] 200 mg PO QHS 12/15/16 Vitamin B Complex/Folic Acid [Super B Maxi Complex Caplet] 0.4 mg PO DAILY 12/15/16 Amlodipine [Norvasc] 10 mg PO DAILY 12/31/16 Acetaminophen [Tylenol Tablet] 650 mg PO Q6H PRN PRN tablet 09/15/18 Omeprazole 20 mg PO DAILY #30 tab 09/15/18 Following Prescrptions Were Given to Patient: Omeprazole 20 mg PO DAILY #30 tab. Primary Care Physician: [facility],[place] [Primary Care Provider] - Within 1 Week Patient Instructions: ED Chest Pain NonCardiac Disposition: Home Minutes spent on discharge:: 32 Patient Condition:: Good Medical Necessity - Tobacco Use Smoking Status: Current every day smoker Tobacco Use: Cigarettes Meaningful Use Info Meaningful Use Diagnoses (Choose all that apply): None applicable Code Visit OBSV E&M: 51823 Observation care discharge
--- NOTE | 2018-09-15 11:23 | DS.PCM_ITS ---
Discharge Date and Diagnosis - Problem List Patient Problems: Active and Suspected Problems Chest pain (Acute) Date of Admission: 09/14/18 Date of Discharge: 09/15/18 - Primary Discharge Diagnosis Active and Suspected Problems Chest pain (Acute) - Secondary Discharge Diagnosis Chronic Problems Hypertension (Chronic) CAD (coronary atherosclerotic disease) (Chronic) Hospital Course and Treatment Imaging Results: Clinical Impression(s) from Imaging Studies Chest X-Ray 09/14/18 21:20 IMPRESSION: No acute thoracic pathology. 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 Patient has known coronary disease with history of CABG. Patient was admitted earlier this month and underwent a nuclear stress test that was negative. Troponins here were negative x3.. Patient had a left heart catheterization performed at [facility] on October 19, 2017 that showed normal left main, normal left anterior descending, normal circumflex, normal right coronary artery, patent stent in the left inferior mammary artery, and a patent saphenous vein graft to the right coronary artery. Patient was noted to be very groggy today when therapy evaluated him. Shortly after the patient woke up from his somnolence, patient was immediately asking for pain medications. I reviewed the patient's OARRS and revealed concerning pattern for drug-seeking behavior., On August 24, patient received [address] Avelar, August 02, received [address] Lua, July 24, received [address] Santana, July 11, received [address] Torres. Further review shows just different providers over different times, but also appears to be different hospitals and different facilities. I told the patient that I would not be giving him any additional narcotics while he was here, did advised him to utilize Tylenol. He has no reproducible anterior chest wall tenderness so possibility of reflux or esophageal spasm could be the cause of his pain but patient seems to be eating well despite that. Did recommend Prilosec for him to try and told him that that [id number]. I did tell the patient that given the frequent varying providers, that he would not receive any additional narcotics but also explained that the narcotics would not be indicated either. [] Patient Problems: Active and Suspected Problems Chest pain (Acute) - Physical Exam General: Alert, No apparent distress HEENT: Atraumatic, Normocephalic Oral: Moist Mucosa, No Gingival or Mucosal Lesions/ Ulcerations Musculoskeletal: - - No reproducible anterior chest wall tenderness Psych/Mental Status: Appropriate, Flat Affect Vital Signs Temp Pulse Resp BP Pulse Ox 36.9 C 65 18 133/54 H 97 09/15/18 10:34 09/15/18 10:34 09/15/18 10:34 09/15/18 10:34 09/15/18 10:34 Oxygen Flow Rate (L/min) 2 Oxygen Delivery Method Room Air Weight: 84.8 kg Body Mass Index (BMI) 28.4 Intake and Output for Last 24 Hours 09/13/18 09/14/18 09/15/18 23:59 23:59 23:59 Intake Total 300 / 300 Balance 300 / 300 Laboratory Tests Past 24 Hrs 09/14/18 09/14/18 09/14/18 21:40 21:40 22:05 WBC 8.1 RBC 4.36 L Hgb 13.4 Hct 39.2 L MCV 89.9 MCH 30.7 MCHC 34.2 RDW 14.7 H RDW Differential 47.9 H Plt Count 290 MPV 9.4 Immature Gran % (Auto) 0.100 Neut % (Auto) 77.2 H Lymph % (Auto) 13.4 L Perkins % (Auto) 8.7 Eos % (Auto) 0.4 Baso % (Auto) 0.2 Absolute Neuts (auto) 6.2 Absolute Lymphs (auto) 1.08 Total Counted Not Reportable PT 14.4 INR 1.1 APTT 33.1 Sodium 139 Potassium 4.3 Chloride 103 Carbon Dioxide 27.0 Anion Gap 9 BUN 13 Creatinine 0.98 Estim Creat Clear Calc 70.77 Est GFR (MDRD) Af Amer 98 Est GFR (MDRD) Non-Af 81 BUN/Creatinine Ratio 13.2 Glucose 109 H Hemoglobin A1c Calcium 9.6 Troponin I < 0.015 Triglycerides Cholesterol LDL Cholesterol VLDL Cholesterol HDL Cholesterol 09/15/18 09/15/18 09/15/18 00:50 03:40 03:40 WBC RBC Hgb Hct MCV MCH MCHC RDW RDW Differential Plt Count MPV Immature Gran % (Auto) Neut % (Auto) Lymph % (Auto) Perkins % (Auto) Eos % (Auto) Baso % (Auto) Absolute Neuts (auto) Absolute Lymphs (auto) Total Counted PT INR APTT Sodium Potassium Chloride Carbon Dioxide Anion Gap BUN Creatinine Estim Creat Clear Calc Est GFR (MDRD) Af Amer Est GFR (MDRD) Non-Af BUN/Creatinine Ratio Glucose Hemoglobin A1c Calcium Troponin I 0.021 0.021 Triglycerides 122 Cholesterol 168 LDL Cholesterol 115 VLDL Cholesterol 24 HDL Cholesterol 29 L 09/15/18 03:40 WBC RBC Hgb Hct MCV MCH MCHC RDW RDW Differential Plt Count MPV Immature Gran % (Auto) Neut % (Auto) Lymph % (Auto) Perkins % (Auto) Eos % (Auto) Baso % (Auto) Absolute Neuts (auto) Absolute Lymphs (auto) Total Counted PT INR APTT Sodium Potassium Chloride Carbon Dioxide Anion Gap BUN Creatinine Estim Creat Clear Calc Est GFR (MDRD) Af Amer Est GFR (MDRD) Non-Af BUN/Creatinine Ratio Glucose Hemoglobin A1c 5.5 Calcium Troponin I Triglycerides Cholesterol LDL Cholesterol VLDL Cholesterol HDL Cholesterol Discharge Diet: Low fat/ Low Cholesterol Discharge Activity: Return to Normal Activity Home Medications: Medications to take at Discharge Albuterol Inhaler [Ventolin Hfa] 2 puff INHALATION Q6H PRN PRN 12/15/16 Aspirin E.C. [Ecotrin] 81 mg PO DAILY@0800 12/15/16 Furosemide [Lasix] 40 mg PO DAILY PRN PRN 12/15/16 Gabapentin [Neurontin] 600 mg PO QHS 12/15/16 Losartan Potassium [Cozaar] 100 mg PO DAILY 12/15/16 Metoprolol(XL)Succ [Toprol Xl (Beta Jennifer)] 100 mg PO QHS 12/15/16 Multivitamin,Therapeutic [Thera] 1 each PO DAILY 12/15/16 Nitroglycerin [Nitrostat] 0.4 mg SL Q5M PRN 12/15/16 Pravastatin [Pravachol] 40 mg PO QHS 12/15/16 Quetiapine Fumarate [Seroquel] 200 mg PO QHS 12/15/16 Vitamin B Complex/Folic Acid [Super B Maxi Complex Caplet] 0.4 mg PO DAILY 12/15/16 Amlodipine [Norvasc] 10 mg PO DAILY 12/31/16 Acetaminophen [Tylenol Tablet] 650 mg PO Q6H PRN PRN tablet 09/15/18 Omeprazole 20 mg PO DAILY #30 tab 09/15/18 Following Prescrptions Were Given to Patient: Omeprazole 20 mg PO DAILY #30 tab. Primary Care Physician: [facility],[place] [Primary Care Provider] - Within 1 Week Patient Instructions: ED Chest Pain NonCardiac Disposition: Home Minutes spent on discharge:: 32 Patient Condition:: Good Medical Necessity - Tobacco Use Smoking Status: Current every day smoker Tobacco Use: Cigarettes Meaningful Use Info Meaningful Use Diagnoses (Choose all that apply): None applicable Code Visit OBSV E&M: 65032 Observation care discharge
--- NOTE | 2018-09-15 15:24 | PCM.PROGNOTE ---
Subjective: The patient was found ambulating around the unit unit today searching for his nurse to request pain medications. I was able to get him to come back to his room and interview him about his presenting symptoms. He describes ongoing midsternal chest tightness. Feels that he does not have associated shortness of breath, dizziness, lightheadedness, palpitations, lower extremity edema. The patient did undergo a stress test about 1 month prior that was negative. Last September he underwent a cardiac catheterization that demonstrated patent arteries. No intervention was provided. He follows with Dr. Arango at [facility]. He had no events on telemetry overnight, and his EKG was unremarkable. He denies any recent musculoskeletal injury, and denies any history of acid reflux. He had no increased chest pain, shortness of breath, lightheadedness or dizziness when he was up ambulating around the unit prior to the exam. - Physical Exam General: Alert, Oriented x3, Cooperative HEENT: Atraumatic, PERRLA, EOMI, Normocephalic Neck: Supple, No JVD, Negative Carotid Bruits Lungs: Clear to auscultation, Normal air movement Cardiovascular: Regular rate, No murmurs Abdomen: Bowel Sounds Present, Soft, Non Tender Extremities: No edema, Capillary Refill Less than 3 Seconds Skin: No rashes, No breakdown Musculoskeletal: No Tenderness to Palpation of Joints or Extremities Neurological: Cranial nerves II-XII grossly intact Psych/Mental Status: Normal Affect, Appropriate, Alert and oriented to time, place, person, mood and affect Vital Signs Temp Pulse Resp BP Pulse Ox 98.4 F 65 18 133/54 H 97 09/15/18 10:34 09/15/18 10:34 09/15/18 10:34 09/15/18 10:34 09/15/18 10:34 Oxygen Flow Rate (L/min) 2 Oxygen Delivery Method Room Air Weight: 186 lb 15.232 oz Body Mass Index (BMI) 28.4 Intake and Output for Last 24 Hours 09/13/18 09/14/18 09/15/18 23:59 23:59 23:59 Intake Total 300 / 300 Balance 300 / 300 Laboratory Tests Past 24 Hrs 09/14/18 09/14/18 09/14/18 21:40 21:40 22:05 WBC 8.1 RBC 4.36 L Hgb 13.4 Hct 39.2 L MCV 89.9 MCH 30.7 MCHC 34.2 RDW 14.7 H RDW Differential 47.9 H Plt Count 290 MPV 9.4 Immature Gran % (Auto) 0.100 Neut % (Auto) 77.2 H Lymph % (Auto) 13.4 L Maury % (Auto) 8.7 Eos % (Auto) 0.4 Baso % (Auto) 0.2 Absolute Neuts (auto) 6.2 Absolute Lymphs (auto) 1.08 Total Counted Not Reportable PT 14.4 INR 1.1 APTT 33.1 Sodium 139 Potassium 4.3 Chloride 103 Carbon Dioxide 27.0 Anion Gap 9 BUN 13 Creatinine 0.98 Estim Creat Clear Calc 70.77 Est GFR (MDRD) Af Amer 98 Est GFR (MDRD) Non-Af 81 BUN/Creatinine Ratio 13.2 Glucose 109 H Hemoglobin A1c Calcium 9.6 Troponin I < 0.015 Triglycerides Cholesterol LDL Cholesterol VLDL Cholesterol HDL Cholesterol 09/15/18 09/15/18 09/15/18 00:50 03:40 03:40 WBC RBC Hgb Hct MCV MCH MCHC RDW RDW Differential Plt Count MPV Immature Gran % (Auto) Neut % (Auto) Lymph % (Auto) Maury % (Auto) Eos % (Auto) Baso % (Auto) Absolute Neuts (auto) Absolute Lymphs (auto) Total Counted PT INR APTT Sodium Potassium Chloride Carbon Dioxide Anion Gap BUN Creatinine Estim Creat Clear Calc Est GFR (MDRD) Af Amer Est GFR (MDRD) Non-Af BUN/Creatinine Ratio Glucose Hemoglobin A1c Calcium Troponin I 0.021 0.021 Triglycerides 122 Cholesterol 168 LDL Cholesterol 115 VLDL Cholesterol 24 HDL Cholesterol 29 L 09/15/18 03:40 WBC RBC Hgb Hct MCV MCH MCHC RDW RDW Differential Plt Count MPV Immature Gran % (Auto) Neut % (Auto) Lymph % (Auto) Maury % (Auto) Eos % (Auto) Baso % (Auto) Absolute Neuts (auto) Absolute Lymphs (auto) Total Counted PT INR APTT Sodium Potassium Chloride Carbon Dioxide Anion Gap BUN Creatinine Estim Creat Clear Calc Est GFR (MDRD) Af Amer Est GFR (MDRD) Non-Af BUN/Creatinine Ratio Glucose Hemoglobin A1c 5.5 Calcium Troponin I Triglycerides Cholesterol LDL Cholesterol VLDL Cholesterol HDL Cholesterol Medical Necessity - Tobacco Use Smoking Status: Current every day smoker Tobacco Use: Cigarettes Assessment/Plan All Active Problems Chest pain (Acute) 1. Chest pain in the setting of history of CAD-negative EKG, negative troponins, negative chest x-ray, negative telemetry overnight. Chest pain is unlikely to be related to cardiac etiology. Suspect underlying acid reflux or musculoskeletal injury. He recently had a negative stress test, will defer repeat. He also within the last year had a cardiac catheterization that was negative. Patient will be started on a PPI, and discharged home. 2. CAD-continue aspirin, metoprolol, losartan, pravastatin. 3. Hypertension-stable 4. Ongoing nicotine abuse-cessation reemphasized 5. Chronic pain syndrome-patient is demonstrated drug-seeking behavior, orders report revealed multiple physicians and multiple pharmacies where the patient has been receiving pain medications. Do not feel that further narcotic pain medications are indicated at this time. DVT prophylaxis: Lovenox Discharge planning: Home today This patient was seen by Elmer Bruno PA-C under the supervision of Doctor Mendenhall.
== END 2018-09-15 11:17 | disposition home or self-care (01) ==
LOC: ED 23:57 → PCU 09-15 00:15
PROVIDERS: Admitting Provider Hospitalist; Emergency Provider Emergency Medicine; Referring Provider Hospitalist
DX: R07.89 Other chest pain (principal); I25.10 Atherosclerotic heart disease of native coronary artery without angina pectoris; I10 Essential (primary) hypertension; I25.2 Old myocardial infarction; R11.2 Nausea with vomiting, unspecified; R91.1 Solitary pulmonary nodule; F17.210 Nicotine dependence, cigarettes, uncomplicated; G47.33 Obstructive sleep apnea (adult) (pediatric); E78.5 Hyperlipidemia, unspecified; Z93.3 Colostomy status; Z82.49 Family history of ischemic heart disease and other diseases of the circulatory system; Z79.899 Other long term (current) drug therapy; Z79.82 Long term (current) use of aspirin; Z95.0 Presence of cardiac pacemaker; Z95.1 Presence of aortocoronary bypass graft; G89.4 Chronic pain syndrome; Z76.5 Malingerer [conscious simulation]
CPT/HCPCS: 36415; 71045; 80048; 80061; 83036; 84484; 85025; 85610; 85730; 93005; 94660; 96372; 96374; 97161; 97165; 97802; 99218; 99285; 99406; A4216; G0378

== ENCOUNTER 2018-10-05 12:19 | Emergency (ER) | payer MEDICARE, OTHER, SELFPAY ==
[2018-09-15 00:38] VITALS: BMI 28.4
[2018-10-05 12:20] VITALS: BP 167/71; PULSE 79; RESP 15; TEMP 36.8; O2SAT 96; BMI 29.3
[2018-10-05 12:23] VITALS: PULSE 79; RESP 12; O2SAT 97
--- NOTE | 2018-10-05 12:27 | EKG12_ITS ---
Test Reason : CP Blood Pressure : / mmHG Vent. Rate : 081 BPM Atrial Rate : 081 BPM P-R Int : 170 ms QRS Dur : 106 ms QT Int : 394 ms P-R-T Axes : 055 046 049 degrees QTc Int : 457 ms Normal sinus rhythm Nonspecific T wave abnormality Abnormal ECG Confirmed by MEERA METCALF, MAGGI ([id number]), assistant film editor LYNN RM ([id number]) on 10/08/2018 7:58:30 AM Referred By: FRANCISCO Confirmed By:MAGGI ESTES MD
[2018-10-05 12:29] VITALS: O2SAT 97
[2018-10-05 12:37] LABS: Absolute Lymphocyte Count 1.87 X10^3/ul (0.83-4.51); Absolute Neutrophil Count 6.7 X10^3/uL (2.0-7.7); Basophil# 0.02 X10^3/uL; Basophil% 0.2 % (0-1); Eosinophil# 0.23 X10^3/uL; Eosinophils% 2.4 % (0-5); Hematocrit 41.5 % (40-54); Lymphocyte # 1.87 X10^3/ul (4.0); Lymphocyte % 19.7 % (19-41); Mean Corp Hgb Conc 33.7 g/gl (32-36); Mean Corpuscular Hgb 31.2 pg (27.0-32.0); Mean Corpuscular Volume 92.4 fL (80-94); Mean Platelet Vol. 9.6 fl (6.2-12.0); Monocyte# 0.65 X10^3/uL; Monocyte% 6.8 % (0-10); Neutrophil # 6.71 X10^3/uL (2.7-7.7); Neutrophil % 70.7 % (47-70); POSITIVE COUNT NO; POSITIVE DIFFERENTIAL NO; POSITIVE MORPHOLOGY NO; Platelet Count 306 K/mm3 (150-450); RBC Distribution Width CV 15.5 % (11.6-14.6); RBC Distribution Width SD 52.7 fl (35.1-43.9); Red Blood Count 4.49 M/mm3 (4.6-6.2); White Blood Count 9.5 K/mm3 (4.4-11.0)
--- NOTE | 2018-10-05 12:38 | RAD_ITS ---
STUDY: X-RAY CHEST REASON FOR EXAM: Male, 68 years old. Chest pain TECHNIQUE: AP COMPARISON: Chest x-ray of 09/14/2018 and CTA chest of 09/02/2018 FINDINGS: The lungs are clear and expanded. There is no demonstrated pleural abnormality. There is mild cardiac enlargement. Sternal wires and mediastinal surgical clips compatible with prior CABG. Two lead cardiac conduction device is seen via the left subclavian vein with lead tips projecting over the right atrium and right ventricle, respectively. Normal visualized pulmonary arteries. There is atherosclerotic calcification of the aortic arch with tortuosity. Normal visualized thoracic spine. Normal visualized ribs, clavicles, and shoulders. 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 RAD/Chest 1 View (Portable) IMPRESSION: No acute cardiopulmonary process. Chronic changes, as above. Electronically Signed: Alli Mederos MD at 12:52 EDT , Service support ,
[2018-10-05 12:54] LABS: Anion Gap 2 (5-15); BUN 13 mg/dL (7-18); BUN/Creat Ratio 11.5 RATIO (10-20); Calcium,Total 9.5 mg/dL (8.5-10.1); Chloride 105 mmol/L (98-107); Creatinine, Serum 1.13 mg/dL (0.70-1.30); EST Glomerular Filtration Rate 69 mL/min (>60); Est Glom Filt Rate - Afr Amer 83 mL/min (>60); Estimated Creatinine Clearance 61.37 ml/min; Glucose 116 mg/dL (74-106); Potassium 4.3 mmol/L (3.5-5.1); Sodium Level 138 mmol/L (136-145)
[2018-10-05] MEDS: Acetaminophen 325 MG Tablet 650 MG PO (13:48)
[2018-10-05 13:49] VITALS: BP 150/80; PULSE 89; RESP 22; O2SAT 97
--- NOTE | 2018-10-05 13:53 | EKG12_ITS ---
Test Reason : REPEAT Blood Pressure : / mmHG Vent. 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
[2018-10-05] MEDS: Ondansetron 4 MG/2 ML Vial IV (13:58)
--- NOTE | 2018-10-05 14:06 | ED.RN ---
Pt was given tylenol for pain. Pt asked for a higher pain med, this RN notified Kyle WEINSTEIN. Went back into pt room to medicate with zofran, pt states he wants to see the PA again to talk about a pain in his stomach. PA, Notified.
[2018-10-05] MEDS: oxyCODONE 5 MG Tablet PO (14:38)
[2018-10-05 15:00] VITALS: BP 135/57; PULSE 86; RESP 16; O2SAT 97
[2018-10-05 16:00] VITALS: BP 149/68; PULSE 79; RESP 16; O2SAT 96
--- NOTE | 2018-10-05 16:50 | ED.DCSUM_ITS ---
History of Present Illness Chief Complaint: Chest Pain Informant: Patient Onset: Today Context: Sudden Onset Timing: Continuous Quality: sharp Location: substernal Current Severity: Severe Maximum Severity: Severe Worsened by: nothing Relieved by: nothing Associated Symptoms: nausea Narrative: 68 male presents to the emergency chest pain. Pain began about an hour prior to arrival. He was at rest when this began. It is sharp in nature and substernal. It does not radiate. He states that nothing makes it worse. He was not short of breath and had no associated lightheadedness dizziness or diaphoresis, nausea or vomiting. He took 3 nitroglycerin without relief. Patient has a history of coronary artery disease as well as chronic pain. He was admitted here last month for similar symptoms. He had a stress test at that time that was negative. Patient's last cardiac catheterization was approximately 1 year ago but was in hospital. 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 He also has a pacemaker. He denies any other Prior similar symptoms: Yes Recent Illness/Hospitalization: Yes Past Medical History - Allergies and Home Meds Allergies/Adverse Reactions: Allergies atorvastatin Allergy (Verified 10/05/18 12:20) Angioedema diclofenac [From Voltaren] Allergy (Verified 10/05/18 12:20) Angioedema hydrochlorothiazide Allergy (Verified 10/05/18 12:20) Angioedema moxifloxacin Allergy (Verified 10/05/18 12:20) Angioedema ramipril Allergy (Verified 10/05/18 12:20) Angioedema rosuvastatin [From Crestor] Allergy (Verified 10/05/18 12:20) Angioedema simvastatin Allergy (Verified 10/05/18 12:20) Angioedema ticagrelor [From Brilinta] Allergy (Verified 10/05/18 12:20) Shortness of breath Primary Care Physician: [place] [place] [Primary Care Provider] - Prior records reviewed: Yes Surgical History: appendectomy, - - colectomy s/p colostomy, pacemaker insertion; patient had ruptured appendix for which he had appendectomy and laparotomy Smoking Status: Current every day smoker - Family History Paternal Family History: Reports: High Cholesterol, Heart Disease, Hypertension, - - He reported that his father had 11 brothers and about half of them from heart attack in the late 50s or early 60s. Maternal Family History: Reports: Dementia - Alzheimer's disease Review of Systems Cardiovascular: Reports: Chest pain Gastrointestinal: Reports: Nausea Physical Exam Vital Signs/Narrative: Vital Signs Pulse Resp BP Pulse Ox 10/05/18 16:00 79 16 149/68 H 96 10/05/18 15:00 86 16 135/57 H 97 10/05/18 13:49 89 22 H 150/80 H 97 General: Well nourished, Well developed, No Acute Distress Head: Normocephalic, Atraumatic Eyes: Perrl, EOMI ENT: Moist mucous membranes Neck: Supple, Nontender, No lymphadenopathy, No JVD Cardiovascular: Regular rate, Regular rhythm Respiratory: No distress, CTA bilaterally, Chest nontender Abdomen: Soft - Quadrant colostomy without signs of bleeding or surrounding signs of infection., Nontender, Nondistended, Normal bowel sounds Back: Nontender, Normal Inspection Extremities: Nontender, No edema Skin: Normal color, No rash Neurological: Alert, Oriented x3 Psychological: Normal affect Diagnostic/Tx/Re-eval Chest X-Ray - ED: 2 View, Chronic Changes - Rhythm Strip Rhythm Strip: Sinus Rhythm - Medical Decision Making EKG was sinus rhythm without any signs of acute ischemia the patient had taken 3 nitroglycerin on arrival was having 3 out of 10 chest pain. His laboratory work-up was unremarkable. His initial troponin was negative. His two-view chest x-ray showed no acute findings. Because the patient's pain started about an hour prior to arrival and he has a history of coronary artery disease we did obtain delta troponin. Patient's repeat EKG was unchanged. His second troponin was pending when the patient eloped from the emergency department. This was prior to the result of the second troponin. Of note the patient was given 1 oxycodone and one Tylenol for pain but was requesting Dilaudid intravenously, prior to his elopement. ED Disposition - Plan for ED Patient: Disposition: Against Medical Advice Diagnosis: Chest pain [facility]: [facility] [Primary Care Provider] -
--- NOTE | 2018-10-05 17:31 | ED.RN ---
PT NOTED TO NOT BE IN THE ROOM, PATIENT WAS PULLED UP ON THE SECURITY CAMERAS LEAVING AT 1705. WHITE PATIENT WAS WALKING OUT OF DEPARTMENT HE HAD HIS RIGHT HAND COVERING HIS LEFT HAND, WHERE HIS IV WAS LOCATED. ELIZABETH ALCAZAR CALLED AND NOTIFIED OF SITUATION.
--- NOTE | 2018-10-05 17:36 | ED.RN ---
THIS RN INFORMED OF PATIENT ELOPEMENT BY ROSE GONZALEZ. PA INFORMED. PT LEFT WITHOUT DISCHARGE INSTRUCTIONS. UNKNOWN IF PT D/C IV. POLICE CONTACTED.
--- NOTE | 2018-10-05 18:03 | ED.RN ---
ELIZABETH ALCAZAR CALLS BACK TO INFORM US THAT THEY SENT OFFICER'S OUT TO PATIENT'S ADDRESS AND NEIGHBORS STATED TO PD THAT PATIENT HAS NOT BEEN AT THAT ADDRESS FOR SOME TIME. PATIENT WAS NOT FOUND.
== END 2018-10-05 17:40 | disposition left against medical advice (07) ==
PROVIDERS: Emergency Provider Physician Assistant Medical
DX: R07.9 Chest pain, unspecified (principal); I25.10 Atherosclerotic heart disease of native coronary artery without angina pectoris; G89.29 Other chronic pain; F17.200 Nicotine dependence, unspecified, uncomplicated; Z82.49 Family history of ischemic heart disease and other diseases of the circulatory system; Z95.0 Presence of cardiac pacemaker; Z95.1 Presence of aortocoronary bypass graft
CPT/HCPCS: 36415; 71045; 80048; 84484; 85025; 93005; 96374; 99285; A4216; J2405